=== PATIENT | female | born 1945 | race Caucasian/White ===

== ENCOUNTER → 2017-10-22 05:00 | Outpatient (REF) | payer MEDICARE, OTHER, SELFPAY ==
[2017-10-22 08:02] LABS: Hematocrit 39.8 % (37-47); Hemoglobin 13.6 g/dl (12.0-15.0); Mean Corp Hgb Conc 34.2 g/gl (32-36); Mean Corpuscular Hgb 31.7 pg (27.0-32.0); Mean Corpuscular Volume 92.8 fL (81-99); Mean Platelet Vol. 11.4 fl (6.2-12.0); Platelet Count 189 K/mm3 (150-450); RBC Distribution Width CV 12.7 % (11.6-14.6); RBC Distribution Width SD 42.3 fl (35.1-43.9); Red Blood Count 4.29 M/mm3 (4.2-5.4)
[2017-10-22 08:35] LABS: ALB/GLOB Ratio 1.3 RATIO (0.9-2.4); AST(SGOT) 15 U/L (15-37); Alanine Aminotransfer ALT/SGPT 18 U/L (12-78); Albumin, Serum 3.9 g/dL (3.4-5.0); Alkaline Phosphatase 105 U/L (45-117); Anion Gap 12 (5-15); BUN 15 mg/dL (7-18); BUN/Creat Ratio 22.8 RATIO (10-20); Calcium,Total 9.1 mg/dL (8.5-10.1); Chloride 104 mmol/L (98-107); Creatinine, Serum 0.66 mg/dL (0.55-1.02); EST Glomerular Filtration Rate 95 mL/min (>60); Est Glom Filt Rate - Afr Amer 114 mL/min (>60); Glucose 76 mg/dL (70-110); Potassium 4.8 mmol/L (3.5-5.1); Protein, Total 6.9 g/dL (6.4-8.2); Sodium Level 142 mmol/L (136-145)
[2017-10-22 08:36] LABS: Valproic Acid (Depakene) Level 33 ug/mL (50-100)
[2017-10-22 08:37] LABS: Scan Indicated on CBC? Y/N NO
== END ==
LOC: OLS.ACH 05:00
PROVIDERS: Visit Provider Family Medicine
DX: G40.909 Epilepsy, unspecified, not intractable, without status epilepticus (principal)
CPT/HCPCS: 36415; 80053; 80164; 80185; 85027

== ENCOUNTER → 2017-11-05 05:00 | Outpatient (REF) | payer MEDICARE, OTHER, SELFPAY ==
[2017-11-05 08:53] LABS: Valproic Acid (Depakene) Level 51 ug/mL (50-100)
== END ==
LOC: OLS.ACH 05:00
PROVIDERS: Visit Provider Family Medicine
DX: G40.909 Epilepsy, unspecified, not intractable, without status epilepticus (principal)
CPT/HCPCS: 36415; 80164

== ENCOUNTER → 2017-12-26 04:00 | Outpatient (REF) | payer MEDICARE, OTHER, SELFPAY ==
[2017-12-26 07:33] LABS: ALB/GLOB Ratio 1.1 RATIO (0.9-2.4); AST(SGOT) 16 U/L (15-37); Alanine Aminotransfer ALT/SGPT 18 U/L (13-56); Albumin, Serum 3.2 g/dL (3.2-5.0); Alkaline Phosphatase 123 U/L (45-117); Anion Gap 9 (5-15); BUN 18 mg/dL (7-18); BUN/Creat Ratio 30.2 RATIO (10-20); Calcium,Total 8.6 mg/dL (8.5-10.1); Chloride 107 mmol/L (98-107); EST Glomerular Filtration Rate 106 mL/min (>60); Est Glom Filt Rate - Afr Amer 128 mL/min (>60); Globulin 2.9 g/dL (2.2-4.2); Glucose 77 mg/dL (74-106); Potassium 4.1 mmol/L (3.5-5.1); Protein, Total 6.1 g/dL (6.4-8.2); Sodium Level 142 mmol/L (136-145)
[2017-12-26 07:45] LABS: Absolute Lymphocyte Count 1.71 X10^3/ul (0.83-4.51); Absolute Neutrophil Count 3.9 X10^3/uL (2.0-7.7); Basophil# 0.03 X10^3/uL; Basophil% 0.5 % (0-1); Eosinophil# 0.14 X10^3/uL; Eosinophils% 2.2 % (0-5); Hematocrit 37.9 % (37-47); Hemoglobin 12.7 g/dl (12.0-15.0); Lymphocyte # 1.71 X10^3/ul (4.0); Lymphocyte % 26.4 % (19-41); Mean Corp Hgb Conc 33.5 g/gl (32-36); Mean Corpuscular Hgb 31.1 pg (27.0-32.0); Mean Corpuscular Volume 92.9 fL (81-99); Mean Platelet Vol. 11.7 fl (6.2-12.0); Monocyte# 0.68 X10^3/uL; Monocyte% 10.5 % (0-10); Neutrophil % 60.2 % (47-70); Platelet Count 162 K/mm3 (150-450); RBC Distribution Width CV 13.2 % (11.6-14.6); RBC Distribution Width SD 44.7 fl (35.1-43.9); Red Blood Count 4.08 M/mm3 (4.2-5.4); White Blood Count 6.5 K/mm3 (4.4-11.0)
[2017-12-26 07:47] LABS: POSITIVE COUNT NO; POSITIVE DIFFERENTIAL NO; POSITIVE MORPHOLOGY NO
== END ==
LOC: OLS.ACH 04:00
PROVIDERS: Visit Provider Family Medicine
DX: R60.9 Edema, unspecified (principal)
CPT/HCPCS: 36415; 80053; 85025

== ENCOUNTER → 2018-02-25 05:00 | Outpatient (REF) | payer MEDICARE, OTHER, SELFPAY ==
[2018-02-25 09:03] LABS: Hematocrit 37.3 % (37-47); Hemoglobin 12.6 g/dl (12.0-15.0); Mean Corp Hgb Conc 33.8 g/gl (32-36); Mean Corpuscular Volume 94.7 fL (81-99); Mean Platelet Vol. 11.8 fl (6.2-12.0); Platelet Count 183 K/mm3 (150-450); RBC Distribution Width CV 13.2 % (11.6-14.6); RBC Distribution Width SD 44.4 fl (35.1-43.9); Red Blood Count 3.94 M/mm3 (4.2-5.4); White Blood Count 5.4 K/mm3 (4.4-11.0)
[2018-02-25 09:06] LABS: Scan Indicated on CBC? Y/N NO
[2018-02-25 09:20] LABS: ALB/GLOB Ratio 1.2 RATIO (0.9-2.4); AST(SGOT) 13 U/L (15-37); Alanine Aminotransfer ALT/SGPT 16 U/L (13-56); Albumin, Serum 3.4 g/dL (3.2-5.0); Alkaline Phosphatase 89 U/L (45-117); Anion Gap 9 (5-15); BUN 13 mg/dL (7-18); BUN/Creat Ratio 23.6 RATIO (10-20); Calcium,Total 8.6 mg/dL (8.5-10.1); Chloride 109 mmol/L (98-107); Creatinine, Serum 0.55 mg/dL (0.55-1.02); EST Glomerular Filtration Rate 115 mL/min (>60); Est Glom Filt Rate - Afr Amer 140 mL/min (>60); Globulin 2.8 g/dL (2.2-4.2); Glucose 71 mg/dL (74-106); Protein, Total 6.2 g/dL (6.4-8.2); Sodium Level 143 mmol/L (136-145)
[2018-02-25 09:30] LABS: Phenytoin (Dilantin) Level 10.1 mL (10.0-20.0); Valproic Acid (Depakene) Level 42 ug/mL (50-100)
== END ==
LOC: OLS.ACH 05:00
PROVIDERS: Visit Provider Family Medicine
DX: G40.909 Epilepsy, unspecified, not intractable, without status epilepticus (principal)
CPT/HCPCS: 36415; 80053; 80164; 80185; 85027

== ENCOUNTER → 2018-06-12 05:00 | Outpatient (REF) | payer MEDICARE, OTHER, SELFPAY ==
[2018-06-12 08:37] LABS: Phenytoin (Dilantin) Level 19.9 mL (10.0-20.0); Valproic Acid (Depakene) Level 31 ug/mL (50-100)
== END ==
LOC: OLS.ACH 05:00
PROVIDERS: Visit Provider Family Medicine
DX: G40.909 Epilepsy, unspecified, not intractable, without status epilepticus (principal)
CPT/HCPCS: 36415; 80164; 80185

== ENCOUNTER → 2018-06-24 05:00 | Outpatient (REF) | payer MEDICARE, OTHER, SELFPAY ==
[2018-06-24 08:56] LABS: AST(SGOT) 20 U/L (15-37); Alanine Aminotransfer ALT/SGPT 22 U/L (13-56); Albumin, Serum 3.4 g/dL (3.2-5.0); Alkaline Phosphatase 100 U/L (45-117); Anion Gap 9 (5-15); BUN 17 mg/dL (7-18); BUN/Creat Ratio 23.2 RATIO (10-20); Calcium,Total 9.1 mg/dL (8.5-10.1); Chloride 106 mmol/L (98-107); Creatinine, Serum 0.73 mg/dL (0.55-1.02); EST Glomerular Filtration Rate 83 mL/min (>60); Est Glom Filt Rate - Afr Amer 101 mL/min (>60); Globulin 3.4 g/dL (2.2-4.2); Glucose 79 mg/dL (74-106); Potassium 5.4 mmol/L (3.5-5.1); Protein, Total 6.8 g/dL (6.4-8.2); Sodium Level 144 mmol/L (136-145)
[2018-06-24 09:00] LABS: Hematocrit 41.3 % (37-47); Hemoglobin 13.9 g/dl (12.0-15.0); Mean Corp Hgb Conc 33.7 g/gl (32-36); Mean Corpuscular Hgb 32.2 pg (27.0-32.0); Mean Corpuscular Volume 95.6 fL (81-99); Mean Platelet Vol. 11.8 fl (6.2-12.0); Platelet Count 207 K/mm3 (150-450); RBC Distribution Width CV 12.8 % (11.6-14.6); RBC Distribution Width SD 43.6 fl (35.1-43.9); Red Blood Count 4.32 M/mm3 (4.2-5.4)
[2018-06-24 09:07] LABS: Scan Indicated on CBC? Y/N NO
[2018-06-24 09:12] LABS: Phenytoin (Dilantin) Level 21.9 mL (10.0-20.0); Valproic Acid (Depakene) Level 56 ug/mL (50-100)
== END ==
LOC: OLS.ACH 05:00
PROVIDERS: Visit Provider Family Medicine
DX: G40.909 Epilepsy, unspecified, not intractable, without status epilepticus (principal)
CPT/HCPCS: 36415; 80053; 80164; 80185; 85027

== ENCOUNTER → 2018-06-26 05:00 | Outpatient (REF) | payer MEDICARE, SELFPAY ==
[2018-06-26 09:04] LABS: Potassium 4.3 mmol/L (3.5-5.1)
== END ==
LOC: OLS.ACH 05:00
PROVIDERS: Visit Provider Family Medicine
DX: I10 Essential (primary) hypertension (principal)
CPT/HCPCS: 36415; 84132

== ENCOUNTER → 2018-07-01 04:00 | Outpatient (REF) | payer MEDICARE, OTHER, SELFPAY ==
[2018-07-01 08:36] LABS: Phenytoin (Dilantin) Level 29.2 mL (10.0-20.0); Valproic Acid (Depakene) Level 59 ug/mL (50-100)
== END ==
LOC: OLS.ACH 04:00
PROVIDERS: Visit Provider Family Medicine
DX: F41.1 Generalized anxiety disorder (principal); G40.909 Epilepsy, unspecified, not intractable, without status epilepticus
CPT/HCPCS: 36415; 80164; 80185

== ENCOUNTER → 2018-07-04 05:00 | Outpatient (REF) | payer MEDICARE, OTHER, SELFPAY ==
[2018-07-04 09:31] LABS: Phenytoin (Dilantin) Level 28.4 mL (10.0-20.0)
== END ==
LOC: OLS.ACH 05:00
PROVIDERS: Visit Provider Family Medicine
DX: G40.909 Epilepsy, unspecified, not intractable, without status epilepticus (principal)
CPT/HCPCS: 36415; 80185

== ENCOUNTER → 2018-07-12 17:55 | Outpatient (REF) | payer MEDICARE, OTHER, SELFPAY ==
[2018-07-12 18:35] LABS: Hematocrit 41.9 % (37-47); Hemoglobin 14.2 g/dl (12.0-15.0); Mean Corp Hgb Conc 33.9 g/gl (32-36); Mean Corpuscular Hgb 32.5 pg (27.0-32.0); Mean Corpuscular Volume 95.9 fL (81-99); Mean Platelet Vol. 11.6 fl (6.2-12.0); Platelet Count 210 K/mm3 (150-450); RBC Distribution Width CV 12.9 % (11.6-14.6); RBC Distribution Width SD 44.1 fl (35.1-43.9); Red Blood Count 4.37 M/mm3 (4.2-5.4); Scan Indicated on CBC? Y/N NO
[2018-07-12 18:48] LABS: AST(SGOT) 15 U/L (15-37); Alanine Aminotransfer ALT/SGPT 21 U/L (13-56); Albumin, Serum 3.4 g/dL (3.2-5.0); Alkaline Phosphatase 131 U/L (45-117); Anion Gap 4 (5-15); BUN 14 mg/dL (7-18); BUN/Creat Ratio 20.3 RATIO (10-20); Calcium,Total 8.6 mg/dL (8.5-10.1); Chloride 104 mmol/L (98-107); Creatinine, Serum 0.69 mg/dL (0.55-1.02); EST Glomerular Filtration Rate 89 mL/min (>60); Est Glom Filt Rate - Afr Amer 108 mL/min (>60); Globulin 3.5 g/dL (2.2-4.2); Glucose 111 mg/dL (74-106); Potassium 4.6 mmol/L (3.5-5.1); Protein, Total 6.9 g/dL (6.4-8.2); Sodium Level 138 mmol/L (136-145)
[2018-07-12 18:57] LABS: Phenytoin (Dilantin) Level 30.4 mL (10.0-20.0)
== END ==
LOC: OLS.ACH 17:55
PROVIDERS: Visit Provider Family Medicine
DX: G40.909 Epilepsy, unspecified, not intractable, without status epilepticus (principal); I10 Essential (primary) hypertension
CPT/HCPCS: 36415; 80053; 80185; 85027

== ENCOUNTER → 2018-07-22 05:00 | Outpatient (REF) | payer MEDICARE, OTHER, SELFPAY ==
[2018-07-22 08:33] LABS: Phenytoin (Dilantin) Level 22.9 mL (10.0-20.0)
== END ==
LOC: OLS.ACH 05:00
PROVIDERS: Visit Provider Family Medicine
DX: G40.909 Epilepsy, unspecified, not intractable, without status epilepticus (principal)
CPT/HCPCS: 36415; 80185

== ENCOUNTER → 2018-07-29 05:00 | Outpatient (REF) | payer MEDICARE, OTHER, SELFPAY ==
[2018-07-29 09:53] LABS: Phenytoin (Dilantin) Level 26.3 mL (10.0-20.0)
== END ==
LOC: OLS.ACH 05:00
PROVIDERS: Visit Provider Family Medicine
DX: G40.909 Epilepsy, unspecified, not intractable, without status epilepticus (principal)
CPT/HCPCS: 36415; 80185

== ENCOUNTER → 2018-08-02 04:00 | Outpatient (REF) | payer MEDICARE, OTHER, SELFPAY ==
[2018-08-02 09:45] LABS: Phenytoin (Dilantin) Level 18.6 mL (10.0-20.0)
== END ==
LOC: OLS.ACH 04:00
PROVIDERS: Visit Provider Family Medicine
DX: G40.909 Epilepsy, unspecified, not intractable, without status epilepticus (principal)
CPT/HCPCS: 36415; 80185

== ENCOUNTER → 2018-08-16 05:00 | Outpatient (REF) | payer MEDICARE, OTHER, SELFPAY ==
[2018-08-16 09:15] LABS: Phenytoin (Dilantin) Level 20.3 mL (10.0-20.0)
== END ==
LOC: OLS.ACH 05:00
PROVIDERS: Visit Provider Family Medicine
DX: G40.909 Epilepsy, unspecified, not intractable, without status epilepticus (principal)
CPT/HCPCS: 36415; 80185

== ENCOUNTER → 2018-08-20 04:00 | Outpatient (REF) | payer MEDICARE, OTHER, SELFPAY ==
[2018-08-20 09:14] LABS: Valproic Acid (Depakene) Level 54 ug/mL (50-100)
== END ==
LOC: OLS.ACH 04:00
PROVIDERS: Visit Provider Family Medicine
DX: G40.909 Epilepsy, unspecified, not intractable, without status epilepticus (principal)
CPT/HCPCS: 36415; 80164

== ENCOUNTER → 2018-08-28 04:00 | Outpatient (REF) | payer MEDICARE, OTHER, SELFPAY ==
[2018-08-28 08:12] LABS: Phenytoin (Dilantin) Level 12.8 mL (10.0-20.0)
== END ==
LOC: OLS.ACH 04:00
PROVIDERS: Visit Provider Family Medicine
DX: G40.909 Epilepsy, unspecified, not intractable, without status epilepticus (principal)
CPT/HCPCS: 36415; 80185

== ENCOUNTER → 2018-09-09 05:00 | Outpatient (REF) | payer MEDICARE, OTHER, SELFPAY | LOC: OLS.ACH 05:00 | PROVIDERS: Visit Provider Family Medicine | DX: G40.909 Epilepsy, unspecified, not intractable, without status epilepticus (principal) | CPT/HCPCS: 36415; 80185 ==

== ENCOUNTER → 2018-10-28 04:00 | Outpatient (REF) | payer MEDICARE, OTHER, SELFPAY ==
[2018-10-28 08:14] LABS: Hematocrit 39.5 % (37-47); Hemoglobin 13.2 g/dl (12.0-15.0); Mean Corp Hgb Conc 33.4 g/gl (32-36); Mean Corpuscular Hgb 32.2 pg (27.0-32.0); Mean Corpuscular Volume 96.3 fL (81-99); Mean Platelet Vol. 12.1 fl (6.2-12.0); Platelet Count 169 K/mm3 (150-450); RBC Distribution Width CV 13.3 % (11.6-14.6); White Blood Count 6.4 K/mm3 (4.4-11.0)
[2018-10-28 08:19] LABS: Scan Indicated on CBC? Y/N NO
[2018-10-28 08:30] LABS: AST(SGOT) 19 U/L (15-37); Alanine Aminotransfer ALT/SGPT 19 U/L (13-56); Albumin, Serum 2.9 g/dL (3.2-5.0); Alkaline Phosphatase 72 U/L (45-117); Anion Gap 11 (5-15); BUN 14 mg/dL (7-18); BUN/Creat Ratio 22.1 RATIO (10-20); Calcium,Total 8.7 mg/dL (8.5-10.1); Chloride 106 mmol/L (98-107); Creatinine, Serum 0.63 mg/dL (0.55-1.02); EST Glomerular Filtration Rate 98 mL/min (>60); Est Glom Filt Rate - Afr Amer 119 mL/min (>60); Globulin 2.8 g/dL (2.2-4.2); Glucose 68 mg/dL (74-106); Potassium 4.2 mmol/L (3.5-5.1); Protein, Total 5.7 g/dL (6.4-8.2); Sodium Level 144 mmol/L (136-145)
[2018-10-28 08:33] LABS: Valproic Acid (Depakene) Level 74 ug/mL (50-100)
== END ==
LOC: OLS.ACH 04:00
PROVIDERS: Visit Provider Family Medicine
DX: G40.909 Epilepsy, unspecified, not intractable, without status epilepticus (principal)
CPT/HCPCS: 36415; 80053; 80164; 80185; 85027

== ENCOUNTER → 2018-11-27 05:00 | Outpatient (REF) | payer MEDICARE, OTHER, SELFPAY ==
[2018-11-27 09:24] LABS: AST(SGOT) 19 U/L (15-37); Alanine Aminotransfer ALT/SGPT 24 U/L (13-56); Albumin, Serum 2.9 g/dL (3.2-5.0); Alkaline Phosphatase 85 U/L (45-117); Anion Gap 10 (5-15); BUN 13 mg/dL (7-18); BUN/Creat Ratio 19.3 RATIO (10-20); Calcium,Total 8.6 mg/dL (8.5-10.1); Chloride 105 mmol/L (98-107); Creatinine, Serum 0.67 mg/dL (0.55-1.02); EST Glomerular Filtration Rate 92 mL/min (>60); Est Glom Filt Rate - Afr Amer 111 mL/min (>60); Globulin 2.9 g/dL (2.2-4.2); Glucose 66 mg/dL (74-106); Potassium 4.4 mmol/L (3.5-5.1); Protein, Total 5.8 g/dL (6.4-8.2); Sodium Level 143 mmol/L (136-145); Thyroid Stim Hormone (TSH) 3.48 uIU/mL (0.358-3.74)
[2018-11-27 09:35] LABS: BNP,B-Type NATRIURETIC PEPTIDE 27.4 pg/mL (0-100)
== END ==
LOC: OLS.ACH 05:00
PROVIDERS: Visit Provider Family Medicine
DX: G40.909 Epilepsy, unspecified, not intractable, without status epilepticus (principal); I10 Essential (primary) hypertension; M62.81 Muscle weakness (generalized)
CPT/HCPCS: 36415; 80053; 83880; 84443

== ENCOUNTER → 2018-12-31 05:00 | Outpatient (REF) | payer MEDICARE, OTHER, SELFPAY ==
[2018-12-31 08:26] LABS: Bacteria 0 SEEN /hpf (None Seen); Mucous, Urine 0 SEEN /hpf (<or=2+); Red Blood Cells-Urine 0 SEEN /hpf (0-5); Squamous Epithelial Cells - UA 0 SEEN /hpf (5-10)
[2018-12-31 08:27] LABS: Hematocrit 39.7 % (37-47); Hemoglobin 13.1 g/dl (12.0-15.0); Mean Corpuscular Hgb 32.4 pg (27.0-32.0); Mean Corpuscular Volume 98.3 fL (81-99); Mean Platelet Vol. 11.9 fl (6.2-12.0); Platelet Count 169 K/mm3 (150-450); RBC Distribution Width CV 13.3 % (11.6-14.6); RBC Distribution Width SD 47.2 fl (35.1-43.9); Red Blood Count 4.04 M/mm3 (4.2-5.4); Scan Indicated on CBC? Y/N NO; White Blood Count 6.1 K/mm3 (4.4-11.0)
[2018-12-31 08:43] LABS: AST(SGOT) 18 U/L (15-37); Alanine Aminotransfer ALT/SGPT 20 U/L (13-56); Alkaline Phosphatase 70 U/L (45-117); Anion Gap 7 (5-15); BUN 13 mg/dL (7-18); BUN/Creat Ratio 19.3 RATIO (10-20); Calcium,Total 8.2 mg/dL (8.5-10.1); Chloride 103 mmol/L (98-107); Creatinine, Serum 0.67 mg/dL (0.55-1.02); EST Glomerular Filtration Rate 92 mL/min (>60); Est Glom Filt Rate - Afr Amer 111 mL/min (>60); Globulin 2.9 g/dL (2.2-4.2); Glucose 75 mg/dL (74-106); Potassium 3.5 mmol/L (3.5-5.1); Protein, Total 5.9 g/dL (6.4-8.2); Sodium Level 139 mmol/L (136-145)
[2018-12-31 08:43] LABS: Color, Urine Yellow (Yellow); Glucose, Dipstick Normal (Normal); Ketone-Dipstick 5 mg/dl (Negative); Leukocyte Esterase-Dipstick 500 /ul (Negative); Nitrite-Dipstick Positive (Negative); Occult Blood-Urine 50 /ul (Negative); Protein-Dipstick 100 mg/dl (Negative); Urine Bilirubin Dipstick Negative (Negative); Urine Clarity Cloudy (Clear); Urine Urobilinogen 1 mg/dl (Normal)
[2018-12-31 08:49] LABS: White Blood Cells >100 SEEN /hpf (0-5)
[2018-12-31 08:50] LABS: Phenytoin (Dilantin) Level 15.6 mL (10.0-20.0); Valproic Acid (Depakene) Level 77 ug/mL (50-100)
== END ==
LOC: OLS.ACH 05:00
PROVIDERS: Visit Provider Family Medicine
DX: I10 Essential (primary) hypertension (principal); R39.81 Functional urinary incontinence; G40.909 Epilepsy, unspecified, not intractable, without status epilepticus
CPT/HCPCS: 36415; 80053; 80164; 80185; 81001; 85027; 87086; 87088; 87186

== ENCOUNTER → 2019-01-06 04:00 | Outpatient (REF) | payer MEDICARE, OTHER, SELFPAY ==
[2019-01-06 07:40] LABS: Anion Gap 7 (5-15); BUN 14 mg/dL (7-18); BUN/Creat Ratio 19.9 RATIO (10-20); Calcium,Total 8.3 mg/dL (8.5-10.1); Chloride 102 mmol/L (98-107); EST Glomerular Filtration Rate 87 mL/min (>60); Est Glom Filt Rate - Afr Amer 105 mL/min (>60); Glucose 77 mg/dL (74-106); Potassium 2.9 mmol/L (3.5-5.1); Sodium Level 139 mmol/L (136-145)
== END ==
LOC: OLS.ACH 04:00
PROVIDERS: Visit Provider Family Medicine
DX: R60.9 Edema, unspecified (principal)
CPT/HCPCS: 36415; 80048

== ENCOUNTER → 2019-01-10 05:00 | Outpatient (REF) | payer MEDICARE, OTHER, SELFPAY ==
[2019-01-10 09:52] LABS: Potassium 3.5 mmol/L (3.5-5.1)
== END ==
LOC: OLS.ACH 05:00
PROVIDERS: Visit Provider Family Medicine
DX: E87.6 Hypokalemia (principal)
CPT/HCPCS: 36415; 84132

== ENCOUNTER → 2019-02-24 05:00 | Outpatient (REF) | payer MEDICARE, OTHER, SELFPAY ==
[2019-02-24 08:38] LABS: Hematocrit 38.6 % (37-47); Mean Corp Hgb Conc 33.7 g/gl (32-36); Mean Platelet Vol. 11.8 fl (6.2-12.0); Platelet Count 175 K/mm3 (150-450); RBC Distribution Width CV 12.9 % (11.6-14.6); RBC Distribution Width SD 45.5 fl (35.1-43.9); Red Blood Count 3.94 M/mm3 (4.2-5.4); White Blood Count 7.9 K/mm3 (4.4-11.0)
[2019-02-24 08:39] LABS: Scan Indicated on CBC? Y/N NO
[2019-02-24 09:17] LABS: AST(SGOT) 18 U/L (15-37); Alanine Aminotransfer ALT/SGPT 17 U/L (13-56); Alkaline Phosphatase 102 U/L (45-117); Anion Gap 4 (5-15); BUN 16 mg/dL (7-18); Calcium,Total 8.3 mg/dL (8.5-10.1); Chloride 106 mmol/L (98-107); Creatinine, Serum 0.67 mg/dL (0.55-1.02); EST Glomerular Filtration Rate 93 mL/min (>60); Est Glom Filt Rate - Afr Amer 112 mL/min (>60); Glucose 72 mg/dL (74-106); Potassium 4.3 mmol/L (3.5-5.1); Sodium Level 138 mmol/L (136-145)
[2019-02-24 09:36] LABS: Phenytoin (Dilantin) Level 11.6 mL (10.0-20.0); Valproic Acid (Depakene) Level 86 ug/mL (50-100)
== END ==
LOC: OLS.ACH 05:00
PROVIDERS: Visit Provider Family Medicine
DX: G40.909 Epilepsy, unspecified, not intractable, without status epilepticus (principal)
CPT/HCPCS: 36415; 80053; 80164; 80185; 85027

== ENCOUNTER → 2019-03-26 | Outpatient (REF) | payer MEDICARE, OTHER, SELFPAY ==
[2019-03-26 08:01] LABS: Phenytoin (Dilantin) Level 22.1 mL (10.0-20.0); Valproic Acid (Depakene) Level 72 ug/mL (50-100)
== END | disposition home or self-care (01) ==
LOC: OLS.ACH 05:00
PROVIDERS: Visit Provider Family Medicine
DX: G40.909 Epilepsy, unspecified, not intractable, without status epilepticus (principal)
CPT/HCPCS: 36415; 80164; 80185

== ENCOUNTER → 2019-04-02 | Outpatient (REF) | payer MEDICARE, OTHER, SELFPAY ==
[2019-04-02 07:46] LABS: Phenytoin (Dilantin) Level 16.3 mL (10.0-20.0)
== END | disposition home or self-care (01) ==
LOC: OLS.ACH 05:00
PROVIDERS: Visit Provider Family Medicine
DX: G40.909 Epilepsy, unspecified, not intractable, without status epilepticus (principal)
CPT/HCPCS: 36415; 80185

== ENCOUNTER → 2019-05-26 05:00 | Outpatient (REF) | payer MEDICARE, OTHER, SELFPAY ==
[2019-05-26 08:18] LABS: Hematocrit 39.1 % (37-47); Hemoglobin 13.2 g/dL (12.0-15.0); Mean Corp Hgb Conc 33.8 g/dL (32-36); Mean Corpuscular Hgb 32.1 pg (27.0-32.0); Mean Corpuscular Volume 95.1 fL (81-99); Mean Platelet Vol. 11.7 fl (6.2-12.0); Platelet Count 183 K/mm3 (150-450); RBC Distribution Width CV 12.3 % (11.6-14.6); RBC Distribution Width SD 43.1 fl (35.1-43.9); Red Blood Count 4.11 M/mm3 (4.2-5.4); White Blood Count 6.4 K/mm3 (4.4-11.0)
[2019-05-26 08:31] LABS: ALB/GLOB Ratio 0.9 RATIO (0.9-2.4); AST(SGOT) 13 U/L (15-37); Alanine Aminotransfer ALT/SGPT 16 U/L (13-56); Alkaline Phosphatase 92 U/L (45-117); Anion Gap 6 (5-15); BUN 11 mg/dL (7-18); BUN/Creat Ratio 16.6 RATIO (10-20); Calcium,Total 9.2 mg/dL (8.5-10.1); Chloride 104 mmol/L (98-107); Creatinine, Serum 0.66 mg/dL (0.55-1.02); EST Glomerular Filtration Rate 93 mL/min (>60); Est Glom Filt Rate - Afr Amer 113 mL/min (>60); Globulin 3.3 g/dL (2.2-4.2); Glucose 73 mg/dL (74-106); Potassium 5.1 mmol/L (3.5-5.1); Protein, Total 6.3 g/dL (6.4-8.2); Sodium Level 141 mmol/L (136-145)
[2019-05-26 08:44] LABS: Phenytoin (Dilantin) Level 9.2 mL (10.0-20.0); Valproic Acid (Depakene) Level 69 ug/mL (50-100)
== END ==
LOC: OLS.ACH 05:00
PROVIDERS: Visit Provider Family Medicine
DX: G40.909 Epilepsy, unspecified, not intractable, without status epilepticus (principal)
CPT/HCPCS: 36415; 80053; 80164; 80185; 85027

== ENCOUNTER → 2019-07-15 05:00 | Outpatient (REF) | payer MEDICARE, OTHER, SELFPAY ==
[2019-07-15 08:56] LABS: Valproic Acid (Depakene) Level 75 ug/mL (50-100)
[2019-07-18 11:03] LABS: Zarontin Level 113 ug/mL (40-100)
== END ==
LOC: OLS.ACH 05:00
PROVIDERS: Visit Provider Family Medicine
DX: G40.909 Epilepsy, unspecified, not intractable, without status epilepticus (principal)
CPT/HCPCS: 36415; 80164; 80168

== ENCOUNTER → 2019-08-19 16:30 | Outpatient (REF) | payer MEDICARE, OTHER, SELFPAY ==
[2019-08-20 08:44] LABS: Color, Urine Straw (Yellow); Glucose, Dipstick Normal (Normal); Ketone-Dipstick Negative (Negative); Leukocyte Esterase-Dipstick 100 /ul (Negative); Nitrite-Dipstick Negative (Negative); Occult Blood-Urine Negative /ul (Negative); Protein-Dipstick Negative (Negative); Specific Gravity, Urine 1.005 (1.002-1.030); Urine Bilirubin Dipstick Negative (Negative); Urine Clarity Clear (Clear); Urine Urobilinogen Normal (Normal)
== END ==
LOC: OLS.ACH 16:30
PROVIDERS: Visit Provider Family Medicine
DX: R39.81 Functional urinary incontinence (principal)
CPT/HCPCS: 81002; 87086; 87088; 87186

== ENCOUNTER → 2019-08-25 05:00 | Outpatient (REF) | payer MEDICARE, OTHER, SELFPAY ==
[2019-08-25 08:11] LABS: Hematocrit 35.1 % (37-47); Hemoglobin 11.9 g/dL (12.0-15.0); Mean Corp Hgb Conc 33.9 g/dL (32-36); Mean Corpuscular Hgb 32.1 pg (27.0-32.0); Mean Corpuscular Volume 94.6 fL (81-99); Mean Platelet Vol. 11.4 fl (6.2-12.0); Platelet Count 156 K/mm3 (150-450); RBC Distribution Width CV 12.9 % (11.6-14.6); RBC Distribution Width SD 44.9 fl (35.1-43.9); Red Blood Count 3.71 M/mm3 (4.2-5.4); White Blood Count 7.3 K/mm3 (4.4-11.0)
[2019-08-25 08:24] LABS: ALB/GLOB Ratio 0.9 RATIO (0.9-2.4); AST(SGOT) 13 U/L (15-37); Alanine Aminotransfer ALT/SGPT 12 U/L (13-56); Albumin, Serum 2.9 g/dL (3.2-5.0); Alkaline Phosphatase 98 U/L (45-117); Anion Gap 5 (5-15); BUN 13 mg/dL (7-18); BUN/Creat Ratio 19.7 RATIO (10-20); Calcium,Total 8.8 mg/dL (8.5-10.1); Chloride 103 mmol/L (98-107); Creatinine, Serum 0.66 mg/dL (0.55-1.02); EST Glomerular Filtration Rate 94 mL/min (>60); Est Glom Filt Rate - Afr Amer 113 mL/min (>60); Globulin 3.3 g/dL (2.2-4.2); Glucose 74 mg/dL (74-106); Potassium 4.6 mmol/L (3.5-5.1); Protein, Total 6.2 g/dL (6.4-8.2); Sodium Level 136 mmol/L (136-145)
[2019-08-25 08:37] LABS: Phenytoin (Dilantin) Level 7.2 mL (10.0-20.0); Valproic Acid (Depakene) Level 66 ug/mL (50-100)
== END ==
LOC: OLS.ACH 05:00
PROVIDERS: Visit Provider Family Medicine
DX: G40.909 Epilepsy, unspecified, not intractable, without status epilepticus (principal)
CPT/HCPCS: 36415; 80053; 80164; 80185; 85027

== ENCOUNTER → 2019-10-29 05:00 | Outpatient (REF) | payer MEDICARE, OTHER, SELFPAY | LOC: OLS.ACH 05:00 | PROVIDERS: Visit Provider Family Medicine | DX: R63.5 Abnormal weight gain (principal) | CPT/HCPCS: 36415; 84443 ==

== ENCOUNTER → 2019-11-24 05:00 | Outpatient (REF) | payer MEDICARE, OTHER, SELFPAY ==
[2019-11-24 07:51] LABS: Hematocrit 38.8 % (37-47); Hemoglobin 12.9 g/dL (12.0-15.0); Mean Corp Hgb Conc 33.2 g/dL (32-36); Mean Corpuscular Hgb 31.3 pg (27.0-32.0); Mean Corpuscular Volume 94.2 fL (81-99); Mean Platelet Vol. 11.2 fl (6.2-12.0); Platelet Count 157 K/mm3 (150-450); RBC Distribution Width CV 12.5 % (11.6-14.6); RBC Distribution Width SD 43.1 fl (35.1-43.9); Red Blood Count 4.12 M/mm3 (4.2-5.4); White Blood Count 5.9 K/mm3 (4.4-11.0)
[2019-11-24 08:10] LABS: Phenytoin (Dilantin) Level 7.5 mL (10.0-20.0); Valproic Acid (Depakene) Level 65 ug/mL (50-100)
[2019-11-24 08:21] LABS: ALB/GLOB Ratio 0.9 RATIO (0.9-2.4); AST(SGOT) 14 U/L (15-37); Alanine Aminotransfer ALT/SGPT 15 U/L (13-56); Alkaline Phosphatase 88 U/L (45-117); Anion Gap 4 (5-15); BUN 15 mg/dL (7-18); BUN/Creat Ratio 18.2 RATIO (10-20); Calcium,Total 8.9 mg/dL (8.5-10.1); Chloride 107 mmol/L (98-107); Creatinine, Serum 0.82 mg/dL (0.55-1.02); EST Glomerular Filtration Rate 72 mL/min (>60); Est Glom Filt Rate - Afr Amer 88 mL/min (>60); Globulin 3.3 g/dL (2.2-4.2); Glucose 72 mg/dL (74-106); Potassium 4.3 mmol/L (3.5-5.1); Protein, Total 6.3 g/dL (6.4-8.2); Sodium Level 140 mmol/L (136-145)
== END ==
LOC: OLS.ACH 05:00
PROVIDERS: Visit Provider Family Medicine
DX: G40.909 Epilepsy, unspecified, not intractable, without status epilepticus (principal)
CPT/HCPCS: 36415; 80053; 80164; 80185; 85027

== ENCOUNTER → 2019-12-11 05:00 | Outpatient (REF) | payer MEDICARE, OTHER, SELFPAY ==
[2019-12-11 09:58] LABS: Thyroid Stim Hormone (TSH) 4.69 uIU/mL (0.358-3.74)
== END ==
LOC: OLS.ACH 05:00
PROVIDERS: Visit Provider Family Medicine
DX: R63.5 Abnormal weight gain (principal)
CPT/HCPCS: 36415; 84443

== ENCOUNTER → 2020-02-23 04:30 | Outpatient (REF) | payer MEDICARE, OTHER, SELFPAY ==
[2020-02-23 08:21] LABS: Hematocrit 37.9 % (37-47); Hemoglobin 12.5 g/dL (12.0-15.0); Mean Corpuscular Hgb 31.8 pg (27.0-32.0); Mean Corpuscular Volume 96.4 fL (81-99); Mean Platelet Vol. 11.8 fl (6.2-12.0); Platelet Count 163 K/mm3 (150-450); RBC Distribution Width CV 12.8 % (11.6-14.6); RBC Distribution Width SD 45.9 fl (35.1-43.9); Red Blood Count 3.93 M/mm3 (4.2-5.4); White Blood Count 6.3 K/mm3 (4.4-11.0)
[2020-02-23 08:54] LABS: Phenytoin (Dilantin) Level 7.6 mL (10.0-20.0); Valproic Acid (Depakene) Level 68 ug/mL (50-100)
[2020-02-23 08:56] LABS: Anion Gap 7 (5-15); BUN 17 mg/dL (7-18); BUN/Creat Ratio 25.6 RATIO (10-20); Calcium,Total 8.7 mg/dL (8.5-10.1); Chloride 110 mmol/L (98-107); Creatinine, Serum 0.66 mg/dL (0.55-1.02); EST Glomerular Filtration Rate 93 mL/min (>60); Est Glom Filt Rate - Afr Amer 112 mL/min (>60); Glucose 72 mg/dL (74-106); Potassium 4.3 mmol/L (3.5-5.1); Sodium Level 143 mmol/L (136-145)
== END ==
LOC: OLS.ACH 04:30
PROVIDERS: Visit Provider Family Medicine
DX: G40.909 Epilepsy, unspecified, not intractable, without status epilepticus (principal)
CPT/HCPCS: 36415; 80048; 80164; 80185; 85027

== ENCOUNTER → 2020-03-09 04:00 | Outpatient (REF) | payer MEDICARE, OTHER, SELFPAY ==
[2020-03-09 09:09] LABS: T3 Total - Triiodothyronine 0.88 ng/mL (0.6-1.81)
[2020-03-09 09:19] LABS: Thyroid Stim Hormone (TSH) 2.48 uIU/mL (0.358-3.74)
[2020-03-09 09:21] LABS: Phenytoin (Dilantin) Level 9.8 mL (10.0-20.0)
== END ==
LOC: OLS.ACH 04:00
PROVIDERS: Referring Provider Family Medicine; Visit Provider Family Medicine
DX: E03.9 Hypothyroidism, unspecified (principal); G40.909 Epilepsy, unspecified, not intractable, without status epilepticus
CPT/HCPCS: 36415; 80185; 84436; 84443; 84480; G2023

== ENCOUNTER → 2020-05-24 04:00 | Outpatient (REF) | payer MEDICARE, OTHER, SELFPAY ==
[2020-05-24 08:07] LABS: Hematocrit 38.3 % (37-47); Hemoglobin 12.9 g/dL (12.0-15.0); Mean Corp Hgb Conc 33.7 g/dL (32-36); Mean Corpuscular Hgb 31.9 pg (27.0-32.0); Mean Corpuscular Volume 94.8 fL (81-99); Mean Platelet Vol. 11.7 fl (6.2-12.0); Platelet Count 174 K/mm3 (150-450); RBC Distribution Width CV 12.8 % (11.6-14.6); RBC Distribution Width SD 44.6 fl (35.1-43.9); Red Blood Count 4.04 M/mm3 (4.2-5.4); White Blood Count 6.2 K/mm3 (4.4-11.0)
[2020-05-24 09:01] LABS: ALB/GLOB Ratio 0.9 RATIO (0.9-2.4); AST(SGOT) 22 U/L (15-37); Alanine Aminotransfer ALT/SGPT 17 U/L (13-56); Alkaline Phosphatase 84 U/L (45-117); Anion Gap 6 (5-15); BUN 12 mg/dL (7-18); BUN/Creat Ratio 18.7 RATIO (10-20); Chloride 107 mmol/L (98-107); Creatinine, Serum 0.64 mg/dL (0.55-1.02); EST Glomerular Filtration Rate 96 mL/min (>60); Est Glom Filt Rate - Afr Amer 117 mL/min (>60); Globulin 3.3 g/dL (2.2-4.2); Glucose 69 mg/dL (74-106); Potassium 3.8 mmol/L (3.5-5.1); Protein, Total 6.3 g/dL (6.4-8.2); Sodium Level 141 mmol/L (136-145)
[2020-05-24 09:15] LABS: Phenytoin (Dilantin) Level 14.3 mL (10.0-20.0); Valproic Acid (Depakene) Level 70 ug/mL (50-100)
== END ==
LOC: OLS.ACH 04:00
PROVIDERS: Referring Provider Family Medicine; Visit Provider Family Medicine
DX: G40.909 Epilepsy, unspecified, not intractable, without status epilepticus (principal)
CPT/HCPCS: 36415; 80053; 80164; 80185; 85027

== ENCOUNTER → 2020-06-30 05:00 | Outpatient (REF) | payer MEDICARE, OTHER, SELFPAY | LOC: OLS.ACH 05:00 | PROVIDERS: Visit Provider Family Medicine | DX: Z11.59 Encounter for screening for other viral diseases (principal) | CPT/HCPCS: 87635; U0003 ==

== ENCOUNTER → 2020-07-07 05:00 | Outpatient (REF) | payer MEDICARE, OTHER, SELFPAY | LOC: OLS.ACH 05:00 | PROVIDERS: Visit Provider Family Medicine | DX: Z11.59 Encounter for screening for other viral diseases (principal) | CPT/HCPCS: 87635; U0003 ==

== ENCOUNTER → 2020-07-12 10:57 | Outpatient (REF) | payer MEDICARE, OTHER, SELFPAY | LOC: OLS.ACH 10:57 | PROVIDERS: Visit Provider Family Medicine | DX: Z11.59 Encounter for screening for other viral diseases (principal) | CPT/HCPCS: 87635; U0003 ==

== ENCOUNTER → 2020-07-16 12:49 | Outpatient (REF) | payer MEDICARE, OTHER, SELFPAY | LOC: OLS.ACH 12:49 | PROVIDERS: Referring Provider Family Medicine; Visit Provider Family Medicine | DX: Z03.818 Encounter for observation for suspected exposure to other biological agents ruled out (principal) | CPT/HCPCS: 87635; U0003 ==

== ENCOUNTER → 2020-07-19 08:00 | Outpatient (REF) | payer MEDICARE, OTHER, SELFPAY | LOC: OLS.ACH 08:00 | PROVIDERS: Referring Provider Family Medicine; Visit Provider Family Medicine | DX: Z03.818 Encounter for observation for suspected exposure to other biological agents ruled out (principal) | CPT/HCPCS: 87635; U0003 ==

== ENCOUNTER → 2020-07-23 09:26 | Outpatient (REF) | payer MEDICARE, OTHER, SELFPAY | LOC: OLS.ACH 09:26 | PROVIDERS: Referring Provider Family Medicine; Visit Provider Family Medicine | DX: Z03.818 Encounter for observation for suspected exposure to other biological agents ruled out (principal) | CPT/HCPCS: 87635; U0003 ==

== ENCOUNTER → 2020-07-26 13:59 | Outpatient (REF) | payer MEDICARE, OTHER, SELFPAY | LOC: OLS.ACH 13:59 | PROVIDERS: Referring Provider Family Medicine; Visit Provider Family Medicine | DX: Z03.818 Encounter for observation for suspected exposure to other biological agents ruled out (principal) | CPT/HCPCS: 87635; U0003 ==

== ENCOUNTER → 2020-07-30 09:59 | Outpatient (REF) | payer MEDICARE, OTHER, SELFPAY | LOC: OLS.ACH 09:59 | PROVIDERS: Referring Provider Family Medicine; Visit Provider Family Medicine | DX: Z03.818 Encounter for observation for suspected exposure to other biological agents ruled out (principal) | CPT/HCPCS: 87635; U0003 ==

== ENCOUNTER → 2020-08-03 10:43 | Outpatient (REF) | payer MEDICARE, OTHER, SELFPAY | LOC: OLS.ACH 10:43 | PROVIDERS: Referring Provider Family Medicine; Visit Provider Family Medicine | DX: Z03.818 Encounter for observation for suspected exposure to other biological agents ruled out (principal) | CPT/HCPCS: 87635; U0003 ==

== ENCOUNTER → 2020-08-06 11:24 | Outpatient (REF) | payer MEDICARE, OTHER, SELFPAY | LOC: OLS.ACH 11:24 | PROVIDERS: Referring Provider Family Medicine; Visit Provider Family Medicine | DX: Z03.818 Encounter for observation for suspected exposure to other biological agents ruled out (principal) | CPT/HCPCS: 87635; U0003 ==

== ENCOUNTER → 2020-08-10 | Outpatient (REF) | payer MEDICARE, OTHER, SELFPAY | LOC: OLS.ACH | PROVIDERS: Referring Provider Family Medicine; Visit Provider Family Medicine | DX: Z03.818 Encounter for observation for suspected exposure to other biological agents ruled out (principal) | CPT/HCPCS: 87635; U0003 ==

== ENCOUNTER → 2020-08-17 07:34 | Outpatient (REF) | payer MEDICARE, OTHER, SELFPAY | LOC: OLS.ACH 07:34 | PROVIDERS: Referring Provider Family Medicine; Visit Provider Family Medicine | DX: Z03.818 Encounter for observation for suspected exposure to other biological agents ruled out (principal) | CPT/HCPCS: 87635; U0003 ==

== ENCOUNTER → 2020-08-23 04:00 | Outpatient (REF) | payer MEDICARE, OTHER, SELFPAY ==
[2020-08-23 07:23] LABS: Hematocrit 40.3 % (37-47); Hemoglobin 13.3 g/dL (12.0-15.0); Mean Corpuscular Hgb 32.2 pg (27.0-32.0); Mean Corpuscular Volume 97.6 fL (81-99); Mean Platelet Vol. 11.4 fl (6.2-12.0); Platelet Count 190 K/mm3 (150-450); RBC Distribution Width CV 13.3 % (11.6-14.6); RBC Distribution Width SD 47.9 fl (35.1-43.9); Red Blood Count 4.13 M/mm3 (4.2-5.4); White Blood Count 6.6 K/mm3 (4.4-11.0)
[2020-08-23 07:35] LABS: Anion Gap 7 (5-15); BUN 13 mg/dL (7-18); BUN/Creat Ratio 19.3 RATIO (10-20); Chloride 104 mmol/L (98-107); Creatinine, Serum 0.67 mg/dL (0.55-1.02); EST Glomerular Filtration Rate 91 mL/min (>60); Est Glom Filt Rate - Afr Amer 110 mL/min (>60); Glucose 73 mg/dL (74-106); Potassium 3.7 mmol/L (3.5-5.1); Sodium Level 141 mmol/L (136-145)
[2020-08-23 07:51] LABS: Valproic Acid (Depakene) Level 90 ug/mL (50-100)
== END ==
LOC: OLS.ACH 04:00
PROVIDERS: Referring Provider Family Medicine; Visit Provider Family Medicine
DX: G40.909 Epilepsy, unspecified, not intractable, without status epilepticus (principal)
CPT/HCPCS: 36415; 80048; 80164; 80185; 85027

== ENCOUNTER → 2020-08-24 13:18 | Outpatient (REF) | payer MEDICARE, OTHER, SELFPAY | LOC: OLS.ACH 13:18 | PROVIDERS: Visit Provider Family Medicine | DX: Z03.818 Encounter for observation for suspected exposure to other biological agents ruled out (principal) | CPT/HCPCS: 87635; U0003 ==

== ENCOUNTER → 2020-08-30 04:00 | Outpatient (REF) | payer MEDICARE, OTHER, SELFPAY ==
[2020-08-30 09:42] LABS: Phenytoin (Dilantin) Level 18.1 mL (10.0-20.0); Valproic Acid (Depakene) Level 78 ug/mL (50-100)
== END ==
LOC: OLS.ACH 04:00
PROVIDERS: Referring Provider Family Medicine; Visit Provider Family Medicine
DX: Z00.00 Encounter for general adult medical examination without abnormal findings (principal)
CPT/HCPCS: 36415; 80164; 80185

== ENCOUNTER → 2020-08-31 11:09 | Outpatient (REF) | payer MEDICARE, OTHER, SELFPAY | LOC: OLS.ACH 11:09 | PROVIDERS: PCP Family Medicine; Referring Provider Family Medicine; Visit Provider Family Medicine | DX: Z03.818 Encounter for observation for suspected exposure to other biological agents ruled out (principal) | CPT/HCPCS: 87635; U0003 ==

== ENCOUNTER → 2020-09-14 10:05 | Outpatient (REF) | payer MEDICARE, OTHER, SELFPAY | LOC: OLS.ACH 10:05 | PROVIDERS: PCP Family Medicine; Referring Provider Family Medicine; Visit Provider Family Medicine | DX: Z03.818 Encounter for observation for suspected exposure to other biological agents ruled out (principal) | CPT/HCPCS: 87635; U0003 ==

== ENCOUNTER → 2020-09-28 07:34 | Outpatient (REF) | payer MEDICARE, OTHER, SELFPAY | LOC: OLS.ACH 07:34 | PROVIDERS: PCP Family Medicine; Referring Provider Family Medicine; Visit Provider Family Medicine | DX: Z03.818 Encounter for observation for suspected exposure to other biological agents ruled out (principal) | CPT/HCPCS: 87635; U0003 ==

== ENCOUNTER → 2020-10-12 07:28 | Outpatient (REF) | payer MEDICARE, OTHER, SELFPAY | LOC: OLS.ACH 07:28 | PROVIDERS: PCP Family Medicine; Referring Provider Family Medicine; Visit Provider Family Medicine | DX: Z03.818 Encounter for observation for suspected exposure to other biological agents ruled out (principal) | CPT/HCPCS: 87635; U0003 ==

== ENCOUNTER → 2020-10-14 14:55 | Outpatient (REF) | payer MEDICARE, OTHER, SELFPAY ==
[2020-10-14 16:01] LABS: Hematocrit 39.8 % (37-47); Hemoglobin 13.3 g/dL (12.0-15.0); Mean Corp Hgb Conc 33.4 g/dL (32-36); Mean Corpuscular Hgb 32.4 pg (27.0-32.0); Mean Corpuscular Volume 96.8 fL (81-99); Mean Platelet Vol. 10.7 fl (6.2-12.0); Platelet Count 203 K/mm3 (150-450); RBC Distribution Width CV 13.3 % (11.6-14.6); RBC Distribution Width SD 47.4 fl (35.1-43.9); Red Blood Count 4.11 M/mm3 (4.2-5.4); White Blood Count 8.2 K/mm3 (4.4-11.0)
[2020-10-14 16:44] LABS: Anion Gap 5 (5-15); BUN 13 mg/dL (7-18); Chloride 106 mmol/L (98-107); Creatinine, Serum 0.72 mg/dL (0.55-1.02); EST Glomerular Filtration Rate 84 mL/min (>60); Est Glom Filt Rate - Afr Amer 101 mL/min (>60); Glucose 105 mg/dL (74-106); Potassium 4.1 mmol/L (3.5-5.1); Sodium Level 139 mmol/L (136-145)
== END ==
LOC: OLS.ACH 14:55
PROVIDERS: PCP Family Medicine; Referring Provider Family Medicine; Visit Provider Family Medicine
DX: I10 Essential (primary) hypertension (principal); G40.909 Epilepsy, unspecified, not intractable, without status epilepticus; F03.90 Unspecified dementia, unspecified severity, without behavioral disturbance, psychotic disturbance, mood disturbance, and anxiety
CPT/HCPCS: 36415; 80048; 85027

== ENCOUNTER → 2020-10-15 11:05 | Outpatient (REF) | payer MEDICARE, OTHER, SELFPAY ==
[2020-10-15 11:38] LABS: Color, Urine Yellow (Yellow); Glucose, Dipstick Normal (Normal); Ketone-Dipstick Negative (Negative); Leukocyte Esterase-Dipstick 500 /ul (Negative); Nitrite-Dipstick Positive (Negative); Occult Blood-Urine 25 /ul (Negative); Protein-Dipstick Negative (Negative); Urine Bilirubin Dipstick Negative (Negative); Urine Clarity Cloudy (Clear); Urine Urobilinogen Normal (Normal); Urine pH 6.5 (5.0 - 8.0)
== END ==
LOC: OLS.ACH 11:05
PROVIDERS: PCP Family Medicine; Referring Provider Family Medicine; Visit Provider Family Medicine
DX: R53.83 Other fatigue (principal); R50.9 Fever, unspecified
CPT/HCPCS: 81002; 87086; 87088; 87186

== ENCOUNTER → 2020-10-26 18:01 | Outpatient (REF) | payer MEDICARE, OTHER, SELFPAY | LOC: OLS.ACH 18:01 | PROVIDERS: PCP Family Medicine; Referring Provider Family Medicine; Visit Provider Family Medicine | DX: Z03.818 Encounter for observation for suspected exposure to other biological agents ruled out (principal) | CPT/HCPCS: 87635; U0005; U0003 ==

== ENCOUNTER → 2020-11-01 04:00 | Outpatient (REF) | payer MEDICARE, OTHER, SELFPAY ==
[2020-11-01 07:55] LABS: Absolute Lymphocyte Count 1.77 X10^3/uL (0.83-4.51); Absolute Neutrophil Count 1.7 X10^3/uL (2.0-7.7); Basophil# 0.05 X10^3/uL; Basophil% 1.1 % (0-1); Eosinophil# 0.02 X10^3/uL; Eosinophils% 0.4 % (0-5); Hematocrit 38.1 % (37-47); Hemoglobin 12.4 g/dL (12.0-15.0); Lymphocyte # 1.77 X10^3/ul (4.0); Lymphocyte % 39.5 % (19-41); Mean Corp Hgb Conc 32.5 g/dL (32-36); Mean Corpuscular Hgb 31.9 pg (27.0-32.0); Mean Corpuscular Volume 97.9 fL (81-99); Mean Platelet Vol. 11.2 fl (6.2-12.0); Monocyte# 0.85 X10^3/uL; NRBC Flagged by Analyzer 0 % (0-5); Neutrophil # 1.74 X10^3/uL (2.7-7.7); Neutrophil % 38.9 % (47-70); Platelet Count 180 K/mm3 (150-450); RBC Distribution Width CV 13.7 % (11.6-14.6); RBC Distribution Width SD 49.3 fl (35.1-43.9); Red Blood Count 3.89 M/mm3 (4.2-5.4); White Blood Count 4.5 K/mm3 (4.4-11.0)
[2020-11-01 08:23] LABS: Phenytoin (Dilantin) Level 10.2 mL (10.0-20.0); Valproic Acid (Depakene) Level 89 ug/mL (50-100)
[2020-11-01 08:27] LABS: ALB/GLOB Ratio 0.8 RATIO (0.9-2.4); AST(SGOT) 31 U/L (15-37); Alanine Aminotransfer ALT/SGPT 20 U/L (13-56); Albumin, Serum 2.6 g/dL (3.2-5.0); Alkaline Phosphatase 75 U/L (45-117); Anion Gap 7 (5-15); BUN 11 mg/dL (7-18); BUN/Creat Ratio 20.2 RATIO (10-20); Calcium,Total 8.3 mg/dL (8.5-10.1); Chloride 103 mmol/L (98-107); Creatinine, Serum 0.54 mg/dL (0.55-1.02); EST Glomerular Filtration Rate 116 mL/min (>60); Est Glom Filt Rate - Afr Amer 141 mL/min (>60); Globulin 3.2 g/dL (2.2-4.2); Glucose 72 mg/dL (74-106); Potassium 3.4 mmol/L (3.5-5.1); Protein, Total 5.8 g/dL (6.4-8.2); Sodium Level 139 mmol/L (136-145)
== END ==
LOC: OLS.ACH 04:00
PROVIDERS: PCP Family Medicine; Visit Provider Family Medicine
DX: I10 Essential (primary) hypertension (principal); G40.909 Epilepsy, unspecified, not intractable, without status epilepticus
CPT/HCPCS: 36415; 80053; 80164; 80185; 85025

== ENCOUNTER → 2020-11-22 04:00 | Outpatient (REF) | payer MEDICARE, OTHER, SELFPAY ==
[2020-11-22 07:54] LABS: Anion Gap 4 (5-15); BUN 11 mg/dL (7-18); Calcium,Total 8.7 mg/dL (8.5-10.1); Chloride 103 mmol/L (98-107); Creatinine, Serum 0.58 mg/dL (0.55-1.02); EST Glomerular Filtration Rate 108 mL/min (>60); Est Glom Filt Rate - Afr Amer 131 mL/min (>60); Glucose 68 mg/dL (74-106); Potassium 4.4 mmol/L (3.5-5.1); Sodium Level 136 mmol/L (136-145)
== END ==
LOC: OLS.ACH 04:00
PROVIDERS: PCP Family Medicine; Visit Provider Family Medicine
DX: E87.6 Hypokalemia (principal)
CPT/HCPCS: 36415; 80048

== ENCOUNTER → 2021-01-24 04:00 | Outpatient (REF) | payer MEDICARE, OTHER, SELFPAY ==
[2021-01-24 06:55] LABS: Absolute Lymphocyte Count 2.36 X10^3/uL (0.83-4.51); Absolute Neutrophil Count 3.4 X10^3/uL (2.0-7.7); Basophil# 0.07 X10^3/uL; Basophil% 1.1 % (0-1); Eosinophil# 0.12 X10^3/uL; Eosinophils% 1.8 % (0-5); Hematocrit 37.6 % (37-47); Hemoglobin 12.4 g/dL (12.0-15.0); Lymphocyte # 2.36 X10^3/ul (4.0); Lymphocyte % 35.6 % (19-41); Mean Corpuscular Hgb 32.8 pg (27.0-32.0); Mean Corpuscular Volume 99.5 fL (81-99); Mean Platelet Vol. 11.8 fl (6.2-12.0); Monocyte# 0.69 X10^3/uL; Monocyte% 10.4 % (0-10); NRBC Flagged by Analyzer 0 % (0-5); Neutrophil # 3.35 X10^3/uL (2.7-7.7); Neutrophil % 50.6 % (47-70); Platelet Count 189 K/mm3 (150-450); RBC Distribution Width CV 12.3 % (11.6-14.6); RBC Distribution Width SD 45.1 fl (35.1-43.9); Red Blood Count 3.78 M/mm3 (4.2-5.4); White Blood Count 6.6 K/mm3 (4.4-11.0)
[2021-01-24 07:32] LABS: ALB/GLOB Ratio 0.8 RATIO (0.9-2.4); AST(SGOT) 16 U/L (15-37); Alanine Aminotransfer ALT/SGPT 13 U/L (13-56); Albumin, Serum 2.8 g/dL (3.2-5.0); Alkaline Phosphatase 95 U/L (45-117); Anion Gap 4 (5-15); BUN 14 mg/dL (7-18); BUN/Creat Ratio 26.1 RATIO (10-20); Calcium,Total 9.1 mg/dL (8.5-10.1); Chloride 105 mmol/L (98-107); Creatinine, Serum 0.54 mg/dL (0.55-1.02); EST Glomerular Filtration Rate 119 mL/min (>60); Est Glom Filt Rate - Afr Amer 143 mL/min (>60); Globulin 3.5 g/dL (2.2-4.2); Glucose 69 mg/dL (74-106); Phenytoin (Dilantin) Level 7.8 mL (10.0-20.0); Potassium 4.5 mmol/L (3.5-5.1); Protein, Total 6.3 g/dL (6.4-8.2); Sodium Level 138 mmol/L (136-145); Valproic Acid (Depakene) Level 75 ug/mL (50-100)
== END ==
LOC: OLS.ACH 04:00
PROVIDERS: PCP Family Medicine; Visit Provider Family Medicine
DX: G40.909 Epilepsy, unspecified, not intractable, without status epilepticus (principal); I10 Essential (primary) hypertension
CPT/HCPCS: 36415; 80053; 80164; 80185; 85025

== ENCOUNTER → 2021-04-19 04:00 | Outpatient (REF) | payer MEDICARE, OTHER, SELFPAY ==
[2021-04-19 08:15] LABS: Absolute Lymphocyte Count 2.26 X10^3/uL (0.83-4.51); Absolute Neutrophil Count 1.9 X10^3/uL (2.0-7.7); Basophil# 0.04 X10^3/uL; Basophil% 0.8 % (0-1); Eosinophil# 0.12 X10^3/uL; Eosinophils% 2.5 % (0-5); Hematocrit 37.7 % (37-47); Hemoglobin 12.6 g/dL (12.0-15.0); Lymphocyte # 2.26 X10^3/ul (0.83-4.51); Lymphocyte % 46.8 % (19-41); Mean Corp Hgb Conc 33.4 g/dL (32-36); Mean Corpuscular Hgb 31.8 pg (27.0-32.0); Mean Corpuscular Volume 95.2 fL (81-99); Mean Platelet Vol. 11.5 fl (6.2-12.0); Monocyte# 0.47 X10^3/uL; Monocyte% 9.7 % (0-10); NRBC Flagged by Analyzer 0 % (0-5); Neutrophil # 1.93 X10^3/uL (2.7-7.7); Platelet Count 171 K/mm3 (150-450); RBC Distribution Width CV 12.7 % (11.6-14.6); RBC Distribution Width SD 44.3 fl (35.1-43.9); Red Blood Count 3.96 M/mm3 (4.2-5.4); White Blood Count 4.8 K/mm3 (4.4-11.0)
[2021-04-19 08:25] LABS: Phenytoin (Dilantin) Level 8.1 mL (10.0-20.0); Valproic Acid (Depakene) Level 82 ug/mL (50-100)
[2021-04-19 08:29] LABS: ALB/GLOB Ratio 0.9 RATIO (0.9-2.4); AST(SGOT) 17 U/L (15-37); Alanine Aminotransfer ALT/SGPT 18 U/L (13-56); Albumin, Serum 3.2 g/dL (3.2-5.0); Alkaline Phosphatase 83 U/L (45-117); Anion Gap 6 (5-15); BUN 16 mg/dL (7-18); BUN/Creat Ratio 21.8 RATIO (10-20); Calcium,Total 8.8 mg/dL (8.5-10.1); Chloride 105 mmol/L (98-107); Creatinine, Serum 0.74 mg/dL (0.55-1.02); EST Glomerular Filtration Rate 82 mL/min (>60); Est Glom Filt Rate - Afr Amer 100 mL/min (>60); Globulin 3.5 g/dL (2.2-4.2); Glucose 74 mg/dL (74-106); Potassium 4.2 mmol/L (3.5-5.1); Protein, Total 6.7 g/dL (6.4-8.2); Sodium Level 139 mmol/L (136-145)
== END ==
LOC: OLS.ACH 04:00
PROVIDERS: PCP Family Medicine; Referring Provider Family Medicine; Visit Provider Family Medicine
DX: G40.909 Epilepsy, unspecified, not intractable, without status epilepticus (principal); I10 Essential (primary) hypertension; K27.9 Peptic ulcer, site unspecified, unspecified as acute or chronic, without hemorrhage or perforation
CPT/HCPCS: 36415; 80053; 80164; 80185; 85025

== ENCOUNTER → 2021-07-11 05:00 | Outpatient (REF) | payer MEDICARE, OTHER, SELFPAY ==
[2021-07-11 08:14] LABS: Absolute Lymphocyte Count 2.69 X10^3/uL (0.83-4.51); Absolute Neutrophil Count 2.5 X10^3/uL (2.0-7.7); Basophil# 0.06 X10^3/uL; Basophil% 0.9 % (0-1); Eosinophil# 0.18 X10^3/uL; Eosinophils% 2.8 % (0-5); Hematocrit 36.5 % (37-47); Hemoglobin 12.4 g/dL (12.0-15.0); Lymphocyte # 2.69 X10^3/ul (0.83-4.51); Lymphocyte % 42.4 % (19-41); Mean Corpuscular Hgb 32.7 pg (27.0-32.0); Mean Corpuscular Volume 96.3 fL (81-99); Monocyte# 0.87 X10^3/uL; Monocyte% 13.7 % (0-10); NRBC Flagged by Analyzer 0 % (0-5); Neutrophil % 39.6 % (47-70); Platelet Count 147 K/mm3 (150-450); RBC Distribution Width SD 46.3 fl (35.1-43.9); Red Blood Count 3.79 M/mm3 (4.2-5.4); White Blood Count 6.3 K/mm3 (4.4-11.0)
[2021-07-11 08:42] LABS: Phenytoin (Dilantin) Level 7.8 mL (10.0-20.0); Valproic Acid (Depakene) Level 93 ug/mL (50-100)
[2021-07-11 08:52] LABS: ALB/GLOB Ratio 0.8 RATIO (0.9-2.4); AST(SGOT) 15 U/L (15-37); Alanine Aminotransfer ALT/SGPT 21 U/L (13-56); Albumin, Serum 2.8 g/dL (3.2-5.0); Alkaline Phosphatase 91 U/L (45-117); Anion Gap 6 (5-15); BUN 20 mg/dL (7-18); BUN/Creat Ratio 30.1 RATIO (10-20); Calcium,Total 8.4 mg/dL (8.5-10.1); Chloride 106 mmol/L (98-107); Creatinine, Serum 0.66 mg/dL (0.55-1.02); EST Glomerular Filtration Rate 92 mL/min (>60); Est Glom Filt Rate - Afr Amer 112 mL/min (>60); Globulin 3.4 g/dL (2.2-4.2); Glucose 85 mg/dL (74-106); Potassium 4.4 mmol/L (3.5-5.1); Protein, Total 6.2 g/dL (6.4-8.2); Sodium Level 139 mmol/L (136-145)
== END ==
LOC: OLS.ACH 05:00
PROVIDERS: PCP Family Medicine; Visit Provider Family Medicine
DX: G40.909 Epilepsy, unspecified, not intractable, without status epilepticus (principal); I10 Essential (primary) hypertension
CPT/HCPCS: 36415; 80053; 80164; 80185; 85025

== ENCOUNTER → 2021-07-28 05:00 | Outpatient (REF) | payer MEDICARE, OTHER, SELFPAY ==
[2021-07-28 08:50] LABS: Hemoglobin 12.6 g/dL (12.0-15.0); Mean Corp Hgb Conc 34.1 g/dL (32-36); Mean Corpuscular Hgb 32.6 pg (27.0-32.0); Mean Corpuscular Volume 95.6 fL (81-99); Mean Platelet Vol. 11.7 fl (6.2-12.0); Platelet Count 158 K/mm3 (150-450); RBC Distribution Width CV 12.7 % (11.6-14.6); RBC Distribution Width SD 44.5 fl (35.1-43.9); Red Blood Count 3.87 M/mm3 (4.2-5.4); White Blood Count 5.2 K/mm3 (4.4-11.0)
[2021-07-28 09:01] LABS: Anion Gap 4 (5-15); BUN 14 mg/dL (7-18); BUN/Creat Ratio 19.7 RATIO (10-20); Chloride 106 mmol/L (98-107); Creatinine, Serum 0.71 mg/dL (0.55-1.02); EST Glomerular Filtration Rate 85 mL/min (>60); Est Glom Filt Rate - Afr Amer 103 mL/min (>60); Glucose 76 mg/dL (74-106); Potassium 4.6 mmol/L (3.5-5.1); Sodium Level 138 mmol/L (136-145)
== END ==
LOC: OLS.ACH 05:00
PROVIDERS: PCP Family Medicine; Visit Provider Family Medicine
DX: G40.909 Epilepsy, unspecified, not intractable, without status epilepticus (principal); R60.1 Generalized edema; R06.02 Shortness of breath
CPT/HCPCS: 36415; 80048; 83880; 85027

== ENCOUNTER → 2021-08-02 05:00 | Outpatient (REF) | payer MEDICARE, OTHER, SELFPAY ==
[2021-08-02 09:52] LABS: Phenytoin (Dilantin) Level 10.6 mL (10.0-20.0)
== END ==
LOC: OLS.ACH 05:00
PROVIDERS: PCP Family Medicine; Visit Provider Family Medicine
DX: G40.909 Epilepsy, unspecified, not intractable, without status epilepticus (principal)
CPT/HCPCS: 36415; 80185

== ENCOUNTER → 2021-08-08 04:00 | Outpatient (REF) | payer MEDICARE, OTHER, SELFPAY ==
[2021-08-08 08:54] LABS: Anion Gap 8 (5-15); BUN 17 mg/dL (7-18); BUN/Creat Ratio 21.7 RATIO (10-20); Calcium,Total 8.7 mg/dL (8.5-10.1); Chloride 105 mmol/L (98-107); Creatinine, Serum 0.78 mg/dL (0.55-1.02); EST Glomerular Filtration Rate 77 mL/min (>60); Est Glom Filt Rate - Afr Amer 93 mL/min (>60); Glucose 72 mg/dL (74-106); Sodium Level 140 mmol/L (136-145)
== END ==
LOC: OLS.ACH 04:00
PROVIDERS: PCP Family Medicine; Visit Provider Family Medicine
DX: I10 Essential (primary) hypertension (principal)
CPT/HCPCS: 36415; 80048

== ENCOUNTER → 2021-09-01 05:00 | Outpatient (REF) | payer MEDICARE, OTHER, SELFPAY ==
[2021-09-01 09:20] LABS: Hematocrit 36.2 % (37-47); Hemoglobin 12.4 g/dL (12.0-15.0); Mean Corp Hgb Conc 34.3 g/dL (32-36); Mean Corpuscular Hgb 33.2 pg (27.0-32.0); Mean Corpuscular Volume 96.8 fL (81-99); Mean Platelet Vol. 12.3 fl (6.2-12.0); Platelet Count 127 K/mm3 (150-450); RBC Distribution Width CV 12.7 % (11.6-14.6); RBC Distribution Width SD 45.1 fl (35.1-43.9); Red Blood Count 3.74 M/mm3 (4.2-5.4); White Blood Count 5.9 K/mm3 (4.4-11.0)
[2021-09-01 09:44] LABS: ALB/GLOB Ratio 0.8 RATIO (0.9-2.4); AST(SGOT) 22 U/L (15-37); Alanine Aminotransfer ALT/SGPT 23 U/L (13-56); Albumin, Serum 2.8 g/dL (3.2-5.0); Alkaline Phosphatase 83 U/L (45-117); Anion Gap 7 (5-15); BUN 17 mg/dL (7-18); Calcium,Total 8.6 mg/dL (8.5-10.1); Chloride 107 mmol/L (98-107); Creatinine, Serum 0.77 mg/dL (0.55-1.02); EST Glomerular Filtration Rate 78 mL/min (>60); Est Glom Filt Rate - Afr Amer 94 mL/min (>60); Globulin 3.4 g/dL (2.2-4.2); Glucose 74 mg/dL (74-106); Potassium 4.1 mmol/L (3.5-5.1); Protein, Total 6.2 g/dL (6.4-8.2); Sodium Level 142 mmol/L (136-145)
[2021-09-01 10:08] LABS: Phenytoin (Dilantin) Level 13.8 mL (10.0-20.0)
== END ==
LOC: OLS.ACH 05:00
PROVIDERS: PCP Family Medicine; Visit Provider Family Medicine
DX: I11.0 Hypertensive heart disease with heart failure (principal); I50.9 Heart failure, unspecified
CPT/HCPCS: 36415; 80053; 80185; 85027

== ENCOUNTER → 2021-10-03 04:00 | Outpatient (REF) | payer MEDICARE, OTHER, SELFPAY ==
[2021-10-03 06:22] LABS: Absolute Lymphocyte Count 3.18 X10^3/uL (0.83-4.51); Absolute Neutrophil Count 2.4 X10^3/uL (2.0-7.7); Basophil# 0.04 X10^3/uL; Basophil% 0.6 % (0-1); Eosinophil# 0.11 X10^3/uL; Eosinophils% 1.7 % (0-5); Hemoglobin 12.5 g/dL (12.0-15.0); Lymphocyte # 3.18 X10^3/ul (0.83-4.51); Lymphocyte % 49.5 % (19-41); Mean Corp Hgb Conc 34.7 g/dL (32-36); Mean Corpuscular Hgb 33.7 pg (27.0-32.0); Monocyte# 0.71 X10^3/uL; NRBC Flagged by Analyzer 0 % (0-5); Neutrophil # 2.37 X10^3/uL (2.7-7.7); Neutrophil % 36.9 % (47-70); Platelet Count 160 K/mm3 (150-450); RBC Distribution Width CV 12.7 % (11.6-14.6); Red Blood Count 3.71 M/mm3 (4.2-5.4); White Blood Count 6.4 K/mm3 (4.4-11.0)
[2021-10-03 06:35] LABS: Phenytoin (Dilantin) Level 14.5 mL (10.0-20.0); Valproic Acid (Depakene) Level 90 ug/mL (50-100)
[2021-10-03 06:54] LABS: ALB/GLOB Ratio 0.9 RATIO (0.9-2.4); AST(SGOT) 19 U/L (15-37); Alanine Aminotransfer ALT/SGPT 21 U/L (13-56); Alkaline Phosphatase 80 U/L (45-117); Anion Gap 6 (5-15); BUN 15 mg/dL (7-18); BUN/Creat Ratio 19.7 RATIO (10-20); Calcium,Total 8.7 mg/dL (8.5-10.1); Chloride 106 mmol/L (98-107); Creatinine, Serum 0.76 mg/dL (0.55-1.02); EST Glomerular Filtration Rate 79 mL/min (>60); Est Glom Filt Rate - Afr Amer 95 mL/min (>60); Globulin 3.4 g/dL (2.2-4.2); Glucose 73 mg/dL (74-106); Potassium 4.1 mmol/L (3.5-5.1); Protein, Total 6.4 g/dL (6.4-8.2); Sodium Level 140 mmol/L (136-145)
== END ==
LOC: OLS.ACH 04:00
PROVIDERS: PCP Family Medicine; Referring Provider Family Medicine; Visit Provider Family Medicine
DX: G40.909 Epilepsy, unspecified, not intractable, without status epilepticus (principal); I11.0 Hypertensive heart disease with heart failure; I50.9 Heart failure, unspecified
CPT/HCPCS: 36415; 80053; 80164; 80185; 85025

== ENCOUNTER 2021-10-26 05:00 | Outpatient (REF) | payer MEDICARE, OTHER, SELFPAY ==
[2021-10-26 08:18] LABS: Valproic Acid (Depakene) Level 76 ug/mL (50-100)
== END 2021-10-26 23:59 | disposition home or self-care (01) ==
LOC: OLS.ACH 05:00
PROVIDERS: PCP Family Medicine; Visit Provider Family Medicine
DX: G40.909 Epilepsy, unspecified, not intractable, without status epilepticus (principal)
CPT/HCPCS: 36415; 80164; 80185

== ENCOUNTER 2021-11-23 04:00 | Outpatient (REF) | payer MEDICARE, OTHER, SELFPAY ==
[2021-11-23 08:00] LABS: Thyroid Stim Hormone (TSH) 2.89 uIU/mL (0.358-3.74)
== END 2021-11-23 23:59 | disposition home or self-care (01) ==
LOC: OLS.ACH 04:00
PROVIDERS: PCP Family Medicine; Referring Provider Family Medicine; Visit Provider Family Medicine
DX: E03.9 Hypothyroidism, unspecified (principal)
CPT/HCPCS: 36415; 84443

== ENCOUNTER → 2021-12-21 | Outpatient (REF) | payer MEDICARE, OTHER, SELFPAY ==
[2021-12-21 09:17] LABS: Absolute Lymphocyte Count 2.13 X10^3/uL (0.83-4.51); Absolute Neutrophil Count 2.7 X10^3/uL (2.0-7.7); Basophil# 0.04 X10^3/uL; Basophil% 0.7 % (0-1); Eosinophil# 0.06 X10^3/uL; Eosinophils% 1.1 % (0-5); Hemoglobin 11.7 g/dL (12.0-15.0); Lymphocyte # 2.13 X10^3/ul (0.83-4.51); Lymphocyte % 37.9 % (19-41); Mean Corp Hgb Conc 33.4 g/dL (32-36); Mean Corpuscular Hgb 32.6 pg (27.0-32.0); Mean Corpuscular Volume 97.5 fL (81-99); Mean Platelet Vol. 11.5 fl (6.2-12.0); Monocyte# 0.66 X10^3/uL; Monocyte% 11.7 % (0-10); NRBC Flagged by Analyzer 0 % (0-5); Neutrophil # 2.71 X10^3/uL (2.7-7.7); Neutrophil % 48.2 % (47-70); Platelet Count 169 K/mm3 (150-450); RBC Distribution Width SD 43.6 fl (35.1-43.9); Red Blood Count 3.59 M/mm3 (4.2-5.4); White Blood Count 5.6 K/mm3 (4.4-11.0)
[2021-12-21 09:35] LABS: ALB/GLOB Ratio 0.9 RATIO (0.9-2.4); AST(SGOT) 17 U/L (15-37); Alanine Aminotransfer ALT/SGPT 13 U/L (13-56); Albumin, Serum 2.8 g/dL (3.2-5.0); Alkaline Phosphatase 65 U/L (45-117); Anion Gap 6 (5-15); BUN 12 mg/dL (7-18); BUN/Creat Ratio 17.9 RATIO (10-20); Calcium,Total 8.9 mg/dL (8.5-10.1); Chloride 106 mmol/L (98-107); Creatinine, Serum 0.67 mg/dL (0.55-1.02); EST Glomerular Filtration Rate 91 mL/min (>60); Est Glom Filt Rate - Afr Amer 111 mL/min (>60); Globulin 3.2 g/dL (2.2-4.2); Glucose 73 mg/dL (74-106); Potassium 4.2 mmol/L (3.5-5.1); Sodium Level 140 mmol/L (136-145)
[2021-12-21 09:38] LABS: Phenytoin (Dilantin) Level 10.7 mL (10.0-20.0)
== END | disposition home or self-care (01) ==
LOC: OLS.ACH 05:00
PROVIDERS: PCP Family Medicine; Visit Provider Family Medicine
DX: G40.909 Epilepsy, unspecified, not intractable, without status epilepticus (principal); I73.89 Other specified peripheral vascular diseases; K27.9 Peptic ulcer, site unspecified, unspecified as acute or chronic, without hemorrhage or perforation
CPT/HCPCS: 36415; 80053; 80185; 85025

== ENCOUNTER → 2021-12-26 | Outpatient (REF) | payer MEDICARE, OTHER, SELFPAY ==
[2021-12-26 08:41] LABS: Absolute Lymphocyte Count 2.25 X10^3/uL (0.83-4.51); Absolute Neutrophil Count 3.2 X10^3/uL (2.0-7.7); Basophil# 0.04 X10^3/uL; Basophil% 0.6 % (0-1); Eosinophil# 0.08 X10^3/uL; Eosinophils% 1.3 % (0-5); Hematocrit 35.6 % (37-47); Hemoglobin 12.3 g/dL (12.0-15.0); Lymphocyte # 2.25 X10^3/ul (0.83-4.51); Lymphocyte % 35.4 % (19-41); Mean Corp Hgb Conc 34.6 g/dL (32-36); Mean Corpuscular Hgb 33.9 pg (27.0-32.0); Mean Corpuscular Volume 98.1 fL (81-99); Mean Platelet Vol. 11.6 fl (6.2-12.0); Monocyte# 0.79 X10^3/uL; Monocyte% 12.4 % (0-10); NRBC Flagged by Analyzer 0 % (0-5); Neutrophil # 3.18 X10^3/uL (2.7-7.7); Platelet Count 170 K/mm3 (150-450); Red Blood Count 3.63 M/mm3 (4.2-5.4); White Blood Count 6.4 K/mm3 (4.4-11.0)
[2021-12-26 09:06] LABS: AST(SGOT) 19 U/L (15-37); Alanine Aminotransfer ALT/SGPT 12 U/L (13-56); Alkaline Phosphatase 75 U/L (45-117); Anion Gap 5 (5-15); BUN 18 mg/dL (7-18); Chloride 107 mmol/L (98-107); Creatinine, Serum 0.69 mg/dL (0.55-1.02); EST Glomerular Filtration Rate 88 mL/min (>60); Est Glom Filt Rate - Afr Amer 107 mL/min (>60); Globulin 3.1 g/dL (2.2-4.2); Glucose 79 mg/dL (74-106); Potassium 4.3 mmol/L (3.5-5.1); Protein, Total 6.1 g/dL (6.4-8.2); Sodium Level 140 mmol/L (136-145)
[2021-12-26 09:10] LABS: Phenytoin (Dilantin) Level 10.5 mL (10.0-20.0); Valproic Acid (Depakene) Level 101 ug/mL (50-100)
== END | disposition home or self-care (01) ==
LOC: OLS.ACH 05:00
PROVIDERS: PCP Family Medicine; Visit Provider Family Medicine
DX: G40.909 Epilepsy, unspecified, not intractable, without status epilepticus (principal); I11.0 Hypertensive heart disease with heart failure; I50.9 Heart failure, unspecified
CPT/HCPCS: 36415; 80053; 80164; 80185; 85025

== ENCOUNTER → 2022-03-20 | Outpatient (REF) | payer MEDICARE, OTHER, SELFPAY ==
[2022-03-20 10:01] LABS: Absolute Lymphocyte Count 2.29 X10^3/uL (0.83-4.51); Absolute Neutrophil Count 3.4 X10^3/uL (2.0-7.7); Basophil# 0.06 X10^3/uL; Basophil% 0.9 % (0-1); Eosinophils% 1.5 % (0-5); Hematocrit 37.9 % (37-47); Hemoglobin 12.5 g/dL (12.0-15.0); Lymphocyte # 2.29 X10^3/ul (0.83-4.51); Lymphocyte % 35.1 % (19-41); Mean Corpuscular Hgb 32.1 pg (27.0-32.0); Mean Corpuscular Volume 97.4 fL (81-99); Mean Platelet Vol. 11.9 fl (6.2-12.0); Monocyte# 0.66 X10^3/uL; Monocyte% 10.1 % (0-10); NRBC Flagged by Analyzer 0 % (0-5); Neutrophil # 3.38 X10^3/uL (2.7-7.7); Neutrophil % 51.9 % (47-70); Platelet Count 173 K/mm3 (150-450); RBC Distribution Width CV 12.6 % (11.6-14.6); RBC Distribution Width SD 45.1 fl (35.1-43.9); Red Blood Count 3.89 M/mm3 (4.2-5.4); White Blood Count 6.5 K/mm3 (4.4-11.0)
[2022-03-20 10:07] LABS: ALB/GLOB Ratio 0.9 RATIO (0.9-2.4); AST(SGOT) 20 U/L (15-37); Alanine Aminotransfer ALT/SGPT 16 U/L (13-56); Alkaline Phosphatase 79 U/L (45-117); Anion Gap 7 (5-15); BUN 17 mg/dL (7-18); BUN/Creat Ratio 25.4 RATIO (10-20); Calcium,Total 9.1 mg/dL (8.5-10.1); Chloride 106 mmol/L (98-107); Creatinine, Serum 0.67 mg/dL (0.55-1.02); EST Glomerular Filtration Rate 91 mL/min (>60); Est Glom Filt Rate - Afr Amer 111 mL/min (>60); Globulin 3.4 g/dL (2.2-4.2); Glucose 80 mg/dL (74-106); Potassium 4.2 mmol/L (3.5-5.1); Protein, Total 6.4 g/dL (6.4-8.2); Sodium Level 140 mmol/L (136-145)
[2022-03-20 10:17] LABS: Phenytoin (Dilantin) Level 12.7 mL (10.0-20.0); Valproic Acid (Depakene) Level 134 ug/mL (50-100)
== END | disposition home or self-care (01) ==
LOC: OLS.ACH 05:00
PROVIDERS: PCP Family Medicine; Visit Provider Family Medicine
DX: G40.909 Epilepsy, unspecified, not intractable, without status epilepticus (principal); I11.0 Hypertensive heart disease with heart failure; I50.9 Heart failure, unspecified
CPT/HCPCS: 36415; 80053; 80164; 80185; 85025

== ENCOUNTER → 2022-06-12 | Outpatient (REF) | payer MEDICARE, OTHER, SELFPAY ==
[2022-06-12 08:08] LABS: Absolute Lymphocyte Count 2.92 X10^3/uL (0.83-4.51); Absolute Neutrophil Count 3.4 X10^3/uL (2.0-7.7); Basophil# 0.05 X10^3/uL; Basophil% 0.7 % (0-1); Eosinophil# 0.12 X10^3/uL; Eosinophils% 1.7 % (0-5); Hematocrit 37.2 % (37-47); Hemoglobin 12.5 g/dL (12.0-15.0); Lymphocyte # 2.92 X10^3/ul (0.83-4.51); Lymphocyte % 40.3 % (19-41); Mean Corp Hgb Conc 33.6 g/dL (32-36); Mean Corpuscular Hgb 32.6 pg (27.0-32.0); Mean Corpuscular Volume 96.9 fL (81-99); Mean Platelet Vol. 12.2 fl (6.2-12.0); Monocyte# 0.76 X10^3/uL; Monocyte% 10.5 % (0-10); NRBC Flagged by Analyzer 0 % (0-5); Neutrophil # 3.38 X10^3/uL (2.7-7.7); Neutrophil % 46.5 % (47-70); Platelet Count 155 K/mm3 (150-450); RBC Distribution Width CV 12.8 % (11.6-14.6); RBC Distribution Width SD 45.7 fl (35.1-43.9); Red Blood Count 3.84 M/mm3 (4.2-5.4); White Blood Count 7.3 K/mm3 (4.4-11.0)
[2022-06-12 08:23] LABS: Phenytoin (Dilantin) Level 13.3 mL (10.0-20.0); Valproic Acid (Depakene) Level 102 ug/mL (50-100)
[2022-06-12 08:26] LABS: ALB/GLOB Ratio 0.8 RATIO (0.9-2.4); AST(SGOT) 17 U/L (15-37); Alanine Aminotransfer ALT/SGPT 18 U/L (13-56); Albumin, Serum 2.9 g/dL (3.2-5.0); Alkaline Phosphatase 81 U/L (45-117); Anion Gap 5 (5-15); BUN 23 mg/dL (7-18); BUN/Creat Ratio 32.4 RATIO (10-20); Calcium,Total 8.9 mg/dL (8.5-10.1); Chloride 108 mmol/L (98-107); Creatinine, Serum 0.71 mg/dL (0.55-1.02); EST Glomerular Filtration Rate 85 mL/min (>60); Est Glom Filt Rate - Afr Amer 103 mL/min (>60); Globulin 3.6 g/dL (2.2-4.2); Glucose 77 mg/dL (74-106); Potassium 4.7 mmol/L (3.5-5.1); Protein, Total 6.5 g/dL (6.4-8.2); Sodium Level 141 mmol/L (136-145)
== END ==
LOC: OLS.ACH 05:00
PROVIDERS: PCP Family Medicine; Visit Provider Family Medicine
DX: G40.909 Epilepsy, unspecified, not intractable, without status epilepticus (principal); I50.9 Heart failure, unspecified; K27.9 Peptic ulcer, site unspecified, unspecified as acute or chronic, without hemorrhage or perforation
CPT/HCPCS: 36415; 80053; 80164; 80185; 85025

== ENCOUNTER → 2022-09-04 | Outpatient (REF) | payer MEDICARE, OTHER, SELFPAY ==
[2022-09-04 08:56] LABS: Absolute Neutrophil Count 2.9 X10^3/uL (2.0-7.7); Basophil# 0.05 X10^3/uL; Basophil% 0.8 % (0-1); Eosinophil# 0.12 X10^3/uL; Eosinophils% 1.9 % (0-5); Hemoglobin 12.7 g/dL (12.0-15.0); Lymphocyte % 39.9 % (19-41); Mean Corp Hgb Conc 33.4 g/dL (32-36); Mean Corpuscular Hgb 32.1 pg (27.0-32.0); Mean Platelet Vol. 11.6 fl (6.2-12.0); Monocyte# 0.65 X10^3/uL; Monocyte% 10.4 % (0-10); NRBC Flagged by Analyzer 0 % (0-5); Neutrophil # 2.92 X10^3/uL (2.7-7.7); Neutrophil % 46.7 % (47-70); Platelet Count 180 K/mm3 (150-450); RBC Distribution Width CV 12.7 % (11.6-14.6); RBC Distribution Width SD 45.3 fl (35.1-43.9); Red Blood Count 3.96 M/mm3 (4.2-5.4); White Blood Count 6.3 K/mm3 (4.4-11.0)
[2022-09-04 09:05] LABS: ALB/GLOB Ratio 0.8 RATIO (0.9-2.4); AST(SGOT) 16 U/L (15-37); Alanine Aminotransfer ALT/SGPT 12 U/L (13-56); Albumin, Serum 2.9 g/dL (3.2-5.0); Alkaline Phosphatase 108 U/L (45-117); Anion Gap 6 (5-15); BUN 14 mg/dL (7-18); BUN/Creat Ratio 25.3 RATIO (10-20); Chloride 110 mmol/L (98-107); Creatinine, Serum 0.55 mg/dL (0.55-1.02); EST Glomerular Filtration Rate 114 mL/min (>60); Est Glom Filt Rate - Afr Amer 138 mL/min (>60); Globulin 3.6 g/dL (2.2-4.2); Glucose 78 mg/dL (74-106); Potassium 4.8 mmol/L (3.5-5.1); Protein, Total 6.5 g/dL (6.4-8.2); Sodium Level 142 mmol/L (136-145)
[2022-09-04 09:07] LABS: Phenytoin (Dilantin) Level 11.7 mL (10.0-20.0); Valproic Acid (Depakene) Level 62 ug/mL (50-100)
== END ==
LOC: OLS.ACH 05:00
PROVIDERS: PCP Family Medicine; Visit Provider Family Medicine
DX: I11.0 Hypertensive heart disease with heart failure (principal); I50.9 Heart failure, unspecified; G40.909 Epilepsy, unspecified, not intractable, without status epilepticus
CPT/HCPCS: 36415; 80053; 80164; 80185; 85025

== ENCOUNTER → 2022-10-24 | Outpatient (REF) | payer MEDICARE, OTHER, SELFPAY ==
[2022-10-24 09:53] LABS: Hematocrit 36.5 % (37-47); Hemoglobin 12.4 g/dL (12.0-15.0); Mean Corpuscular Hgb 32.5 pg (27.0-32.0); Mean Corpuscular Volume 95.5 fL (81-99); Platelet Count 265 K/mm3 (150-450); RBC Distribution Width CV 12.7 % (11.6-14.6); RBC Distribution Width SD 43.8 fl (35.1-43.9); Red Blood Count 3.82 M/mm3 (4.2-5.4); White Blood Count 6.5 K/mm3 (4.4-11.0)
[2022-10-24 10:09] LABS: Phenytoin (Dilantin) Level 9.6 mL (10.0-20.0); Valproic Acid (Depakene) Level 103 ug/mL (50-100)
[2022-10-24 10:16] LABS: ALB/GLOB Ratio 0.6 RATIO (0.9-2.4); AST(SGOT) 13 U/L (15-37); Alanine Aminotransfer ALT/SGPT 11 U/L (13-56); Albumin, Serum 2.5 g/dL (3.2-5.0); Alkaline Phosphatase 92 U/L (45-117); Anion Gap 8 (5-15); BUN 12 mg/dL (7-18); BUN/Creat Ratio 20.3 RATIO (10-20); Calcium,Total 8.7 mg/dL (8.5-10.1); Chloride 106 mmol/L (98-107); Creatinine, Serum 0.59 mg/dL (0.55-1.02); EST Glomerular Filtration Rate 105 mL/min (>60); Est Glom Filt Rate - Afr Amer 127 mL/min (>60); Globulin 4.1 g/dL (2.2-4.2); Glucose 80 mg/dL (74-106); Protein, Total 6.6 g/dL (6.4-8.2); Sodium Level 141 mmol/L (136-145); Thyroid Stim Hormone (TSH) 3.19 uIU/mL (0.358-3.74)
== END ==
LOC: OLS.ACH 06:35
PROVIDERS: PCP Family Medicine; Visit Provider Internal Medicine
DX: G40.909 Epilepsy, unspecified, not intractable, without status epilepticus (principal); I50.9 Heart failure, unspecified; E03.9 Hypothyroidism, unspecified
CPT/HCPCS: 36415; 80053; 80164; 80185; 84443; 85027

== ENCOUNTER → 2022-10-30 | Outpatient (REF) | payer MEDICARE, OTHER, SELFPAY ==
[2022-10-30 09:21] LABS: Phenytoin (Dilantin) Level 9.8 mL (10.0-20.0)
== END ==
LOC: OLS.ACH 04:00
PROVIDERS: PCP Internal Medicine; Referring Provider Internal Medicine; Visit Provider Internal Medicine
DX: G40.909 Epilepsy, unspecified, not intractable, without status epilepticus (principal)
CPT/HCPCS: 36415; 80185

== ENCOUNTER → 2022-11-27 | Outpatient (REF) | payer MEDICARE, OTHER, SELFPAY ==
[2022-11-27 08:59] LABS: Absolute Lymphocyte Count 2.72 X10^3/uL (0.83-4.51); Absolute Neutrophil Count 3.2 X10^3/uL (2.0-7.7); Basophil# 0.04 X10^3/uL; Basophil% 0.6 % (0-1); Eosinophil# 0.12 X10^3/uL; Eosinophils% 1.8 % (0-5); Hematocrit 35.7 % (37-47); Hemoglobin 11.6 g/dL (12.0-15.0); Lymphocyte # 2.72 X10^3/ul (0.83-4.51); Lymphocyte % 40.6 % (19-41); Mean Corp Hgb Conc 32.5 g/dL (32-36); Mean Corpuscular Hgb 31.6 pg (27.0-32.0); Mean Corpuscular Volume 97.3 fL (81-99); Mean Platelet Vol. 11.3 fl (6.2-12.0); Monocyte# 0.62 X10^3/uL; Monocyte% 9.3 % (0-10); NRBC Flagged by Analyzer 0 % (0-5); Neutrophil # 3.18 X10^3/uL (2.7-7.7); Neutrophil % 47.4 % (47-70); Platelet Count 187 K/mm3 (150-450); RBC Distribution Width CV 13.2 % (11.6-14.6); RBC Distribution Width SD 47.7 fl (35.1-43.9); Red Blood Count 3.67 M/mm3 (4.2-5.4); White Blood Count 6.7 K/mm3 (4.4-11.0)
[2022-11-27 09:17] LABS: ALB/GLOB Ratio 0.6 RATIO (0.9-2.4); AST(SGOT) 16 U/L (15-37); Alanine Aminotransfer ALT/SGPT 14 U/L (13-56); Albumin, Serum 2.7 g/dL (3.2-5.0); Alkaline Phosphatase 96 U/L (45-117); Anion Gap 5 (5-15); BUN 21 mg/dL (7-18); BUN/Creat Ratio 32.4 RATIO (10-20); Calcium,Total 9.1 mg/dL (8.5-10.1); Chloride 107 mmol/L (98-107); Creatinine, Serum 0.65 mg/dL (0.55-1.02); EST Glomerular Filtration Rate 95 mL/min (>60); Est Glom Filt Rate - Afr Amer 115 mL/min (>60); Globulin 4.8 g/dL (2.2-4.2); Glucose 84 mg/dL (74-106); Potassium 4.7 mmol/L (3.5-5.1); Protein, Total 7.5 g/dL (6.4-8.2); Sodium Level 139 mmol/L (136-145)
[2022-11-27 10:15] LABS: Phenytoin (Dilantin) Level 10.5 mL (10.0-20.0); Valproic Acid (Depakene) Level 72 ug/mL (50-100)
== END ==
LOC: OLS.ACH 05:00
PROVIDERS: PCP Internal Medicine; Visit Provider Internal Medicine
DX: G40.909 Epilepsy, unspecified, not intractable, without status epilepticus (principal); I11.0 Hypertensive heart disease with heart failure; I50.9 Heart failure, unspecified
CPT/HCPCS: 36415; 80053; 80164; 80185; 85025

== ENCOUNTER → 2023-01-26 | Outpatient (REF) | payer MEDICARE, OTHER, SELFPAY ==
[2023-01-26 08:03] LABS: Hematocrit 37.5 % (37-47); Hemoglobin 12.1 g/dL (12.0-15.0); Mean Corp Hgb Conc 32.3 g/dL (32-36); Mean Corpuscular Hgb 31.4 pg (27.0-32.0); Mean Corpuscular Volume 97.4 fL (81-99); Mean Platelet Vol. 11.4 fl (6.2-12.0); Platelet Count 193 K/mm3 (150-450); RBC Distribution Width CV 12.7 % (11.6-14.6); RBC Distribution Width SD 45.1 fl (35.1-43.9); Red Blood Count 3.85 M/mm3 (4.2-5.4); White Blood Count 5.8 K/mm3 (4.4-11.0)
[2023-01-26 08:05] LABS: ALB/GLOB Ratio 0.9 RATIO (0.9-2.4); AST(SGOT) 17 U/L (15-37); Alanine Aminotransfer ALT/SGPT 14 U/L (13-56); Alkaline Phosphatase 98 U/L (45-117); Anion Gap 6 (5-15); BUN 17 mg/dL (7-18); BUN/Creat Ratio 23.6 RATIO (10-20); Calcium,Total 8.9 mg/dL (8.5-10.1); Chloride 109 mmol/L (98-107); Creatinine, Serum 0.72 mg/dL (0.55-1.02); EST Glomerular Filtration Rate 84 mL/min (>60); Est Glom Filt Rate - Afr Amer 101 mL/min (>60); Globulin 3.5 g/dL (2.2-4.2); Glucose 84 mg/dL (74-106); Potassium 4.5 mmol/L (3.5-5.1); Protein, Total 6.5 g/dL (6.4-8.2); Sodium Level 142 mmol/L (136-145)
== END ==
LOC: OLS.ACH 05:00
PROVIDERS: PCP Internal Medicine; Visit Provider Internal Medicine
DX: Z79.899 Other long term (current) drug therapy (principal); R05.9 Cough, unspecified; J30.9 Allergic rhinitis, unspecified
CPT/HCPCS: 36415; 80053; 85027; 87633

== ENCOUNTER → 2023-02-19 | Outpatient (REF) | payer MEDICARE, OTHER, SELFPAY ==
[2023-02-19 09:52] LABS: Absolute Lymphocyte Count 2.52 X10^3/uL (0.83-4.51); Absolute Neutrophil Count 2.9 X10^3/uL (2.0-7.7); Basophil# 0.04 X10^3/uL; Basophil% 0.6 % (0-1); Eosinophils% 1.6 % (0-5); Hematocrit 36.8 % (37-47); Hemoglobin 12.2 g/dL (12.0-15.0); Lymphocyte # 2.52 X10^3/ul (0.83-4.51); Lymphocyte % 40.2 % (19-41); Mean Corp Hgb Conc 33.2 g/dL (32-36); Mean Corpuscular Hgb 31.4 pg (27.0-32.0); Mean Corpuscular Volume 94.8 fL (81-99); Mean Platelet Vol. 12.1 fl (6.2-12.0); Monocyte# 0.69 X10^3/uL; NRBC Flagged by Analyzer 0 % (0-5); Neutrophil # 2.91 X10^3/uL (2.7-7.7); Neutrophil % 46.4 % (47-70); Platelet Count 179 K/mm3 (150-450); RBC Distribution Width CV 12.5 % (11.6-14.6); RBC Distribution Width SD 43.5 fl (35.1-43.9); Red Blood Count 3.88 M/mm3 (4.2-5.4); White Blood Count 6.3 K/mm3 (4.4-11.0)
[2023-02-19 10:14] LABS: Phenytoin (Dilantin) Level 10.8 mL (10.0-20.0); Valproic Acid (Depakene) Level 54 ug/mL (50-100)
[2023-02-19 10:16] LABS: ALB/GLOB Ratio 0.8 RATIO (0.9-2.4); AST(SGOT) 16 U/L (15-37); Alanine Aminotransfer ALT/SGPT 11 U/L (13-56); Albumin, Serum 2.9 g/dL (3.2-5.0); Alkaline Phosphatase 97 U/L (45-117); Anion Gap 8 (5-15); BUN 20 mg/dL (7-18); BUN/Creat Ratio 32.2 RATIO (10-20); Calcium,Total 9.1 mg/dL (8.5-10.1); Chloride 109 mmol/L (98-107); Creatinine, Serum 0.62 mg/dL (0.55-1.02); EST Glomerular Filtration Rate 99 mL/min (>60); Est Glom Filt Rate - Afr Amer 120 mL/min (>60); Globulin 3.6 g/dL (2.2-4.2); Glucose 80 mg/dL (74-106); Potassium 4.4 mmol/L (3.5-5.1); Protein, Total 6.5 g/dL (6.4-8.2); Sodium Level 142 mmol/L (136-145)
== END ==
LOC: OLS.ACH 04:00
PROVIDERS: PCP Internal Medicine; Referring Provider Internal Medicine; Visit Provider Internal Medicine
DX: G40.909 Epilepsy, unspecified, not intractable, without status epilepticus (principal); I11.0 Hypertensive heart disease with heart failure; I50.9 Heart failure, unspecified; K27.9 Peptic ulcer, site unspecified, unspecified as acute or chronic, without hemorrhage or perforation
CPT/HCPCS: 36415; 80053; 80164; 80185; 85025

== ENCOUNTER → 2023-05-14 | Outpatient (REF) | payer MEDICARE, OTHER, SELFPAY ==
[2023-05-14 09:21] LABS: Absolute Lymphocyte Count 2.33 X10^3/uL (0.83-4.51); Absolute Neutrophil Count 3.2 X10^3/uL (2.0-7.7); Basophil# 0.06 X10^3/uL; Basophil% 0.9 % (0-1); Eosinophil# 0.13 X10^3/uL; Hemoglobin 12.2 g/dL (12.0-15.0); Lymphocyte # 2.33 X10^3/ul (0.83-4.51); Lymphocyte % 36.5 % (19-41); Mean Corp Hgb Conc 32.1 g/dL (32-36); Mean Corpuscular Hgb 30.9 pg (27.0-32.0); Mean Corpuscular Volume 96.2 fL (81-99); Mean Platelet Vol. 12.1 fl (6.2-12.0); Monocyte# 0.66 X10^3/uL; Monocyte% 10.3 % (0-10); NRBC Flagged by Analyzer 0 % (0-5); Neutrophil # 3.19 X10^3/uL (2.7-7.7); Platelet Count 175 K/mm3 (150-450); RBC Distribution Width SD 46.6 fl (35.1-43.9); Red Blood Count 3.95 M/mm3 (4.2-5.4); White Blood Count 6.4 K/mm3 (4.4-11.0)
[2023-05-14 09:39] LABS: ALB/GLOB Ratio 0.9 RATIO (0.9-2.4); AST(SGOT) 18 U/L (15-37); Alanine Aminotransfer ALT/SGPT 16 U/L (13-56); Albumin, Serum 3.2 g/dL (3.2-5.0); Alkaline Phosphatase 111 U/L (45-117); Anion Gap 3 (5-15); BUN 19 mg/dL (7-18); BUN/Creat Ratio 28.6 RATIO (10-20); Calcium,Total 8.8 mg/dL (8.5-10.1); Chloride 107 mmol/L (98-107); Creatinine, Serum 0.66 mg/dL (0.55-1.02); EST Glomerular Filtration Rate 92 mL/min (>60); Est Glom Filt Rate - Afr Amer 111 mL/min (>60); Globulin 3.5 g/dL (2.2-4.2); Glucose 87 mg/dL (74-106); Potassium 4.7 mmol/L (3.5-5.1); Protein, Total 6.7 g/dL (6.4-8.2); Sodium Level 138 mmol/L (136-145)
[2023-05-14 11:07] LABS: Phenytoin (Dilantin) Level 8.9 mL (10.0-20.0); Valproic Acid (Depakene) Level 62 ug/mL (50-100)
== END ==
LOC: OLS.ACH 04:00
PROVIDERS: PCP Internal Medicine; Referring Provider Internal Medicine; Visit Provider Internal Medicine
DX: I11.0 Hypertensive heart disease with heart failure (principal); I50.9 Heart failure, unspecified; G40.909 Epilepsy, unspecified, not intractable, without status epilepticus
CPT/HCPCS: 36415; 80053; 80164; 80185; 85025

== ENCOUNTER → 2023-08-06 | Outpatient (REF) | payer MEDICARE, OTHER, SELFPAY ==
[2023-08-06 09:03] LABS: Absolute Lymphocyte Count 2.35 X10^3/uL (0.83-4.51); Basophil# 0.05 X10^3/uL; Basophil% 0.8 % (0-1); Eosinophil# 0.13 X10^3/uL; Eosinophils% 2.1 % (0-5); Hematocrit 37.4 % (37-47); Hemoglobin 12.1 g/dL (12.0-15.0); Lymphocyte # 2.35 X10^3/ul (0.83-4.51); Mean Corp Hgb Conc 32.4 g/dL (32-36); Mean Corpuscular Volume 95.9 fL (81-99); Mean Platelet Vol. 11.8 fl (6.2-12.0); Monocyte# 0.64 X10^3/uL; Monocyte% 10.3 % (0-10); NRBC Flagged by Analyzer 0 % (0-5); Neutrophil % 48.5 % (47-70); Platelet Count 169 K/mm3 (150-450); RBC Distribution Width CV 13.1 % (11.6-14.6); RBC Distribution Width SD 46.5 fl (35.1-43.9); White Blood Count 6.2 K/mm3 (4.4-11.0)
[2023-08-06 09:15] LABS: Valproic Acid (Depakene) Level 102 ug/mL (50-100)
[2023-08-06 09:17] LABS: ALB/GLOB Ratio 0.9 RATIO (0.9-2.4); AST(SGOT) 16 U/L (15-37); Alanine Aminotransfer ALT/SGPT 18 U/L (13-56); Albumin, Serum 3.1 g/dL (3.2-5.0); Alkaline Phosphatase 99 U/L (45-117); Anion Gap 3 (5-15); BUN 16 mg/dL (7-18); BUN/Creat Ratio 21.8 RATIO (10-20); Calcium,Total 8.9 mg/dL (8.5-10.1); Chloride 108 mmol/L (98-107); Creatinine, Serum 0.74 mg/dL (0.55-1.02); EST Glomerular Filtration Rate 82 mL/min (>60); Est Glom Filt Rate - Afr Amer 99 mL/min (>60); Globulin 3.6 g/dL (2.2-4.2); Glucose 90 mg/dL (74-106); Potassium 4.5 mmol/L (3.5-5.1); Protein, Total 6.7 g/dL (6.4-8.2); Sodium Level 140 mmol/L (136-145)
== END ==
LOC: OLS.ACH 05:00
PROVIDERS: PCP Internal Medicine; Visit Provider Internal Medicine
DX: G40.909 Epilepsy, unspecified, not intractable, without status epilepticus (principal); I11.0 Hypertensive heart disease with heart failure; I50.9 Heart failure, unspecified
CPT/HCPCS: 36415; 80053; 80164; 80185; 85025

== ENCOUNTER → 2023-08-15 | Outpatient (REF) | payer MEDICARE, OTHER, SELFPAY ==
[2023-08-15 09:39] LABS: Phenytoin (Dilantin) Level 8.2 mL (10.0-20.0); Valproic Acid (Depakene) Level 91 ug/mL (50-100)
== END ==
LOC: OLS.ACH 05:00
PROVIDERS: PCP Internal Medicine; Visit Provider Internal Medicine
DX: G40.909 Epilepsy, unspecified, not intractable, without status epilepticus (principal)
CPT/HCPCS: 36415; 80164; 80185

== ENCOUNTER 2023-09-18 10:15 | Emergency (ER) | payer MEDICARE, OTHER, SELFPAY ==
[2023-09-18 10:16] VITALS: BP 150/73; PULSE 93; RESP 20; TEMP 36.4; O2SAT 93
--- NOTE | 2023-09-18 10:16 | CT_ITS ---
STUDY: CT BRAIN WITHOUT CONTRAST REASON FOR EXAM: Female, 78 years old. Prolonged seizure RADIATION DOSAGE (If Supplied By Facility): CTDIvol = ( 44.99 ) mGy, DLP = ( 779.24 ) mGycm TECHNIQUE: Transaxial CT imaging of the brain was performed without administration of intravenous contrast material. Individualized dose optimization techniques were used for this CT. COMPARISON: No relevant priors. FINDINGS: Normal soft tissue structures. There is hyperostosis frontalis internus. There is mild cerebral atrophy with widening of the extra-axial spaces and ventricular dilatation. There are areas of decreased attenuation within the white matter tracts of the supratentorial brain, consistent with microvascular disease changes. There are small punctate calcifications of the basal ganglia which are seen in the aging brain as a normal variant. Normal brainstem. There is severe cerebellar atrophy. There is no intracranial hemorrhage. There are no findings of an acute ischemic infarction. Atherosclerotic plaque formation of the vertebral arteries and cavernous portions of the internal carotid arteries bilaterally. Normal visualized paranasal sinuses. CT/Brain/Head without Contrast IMPRESSION: Chronic involutional changes of the brain. Electronically Signed: Darwin Mcbride MD at 11:08 EST ,
[2023-09-18 10:17] VITALS: BMI 32.8
--- NOTE | 2023-09-18 10:18 | EX.ED.DYSGE1 ---
HPI History of Present Illness Chief Complaint: Seizure Informant: patient, EMS and SNF Narrative Narrative: 78-year-old [place] patient with a history of seizure disorder has not had a seizure for a long time but upon going into give her her morning medications, nurses found her having a seizure that they approximate lasted 12 minutes. She was foaming at the mouth and it sounds like tonic-clonic activity throughout. Upon EMS arriving, they state that she was responsive and close to her baseline as she is now, as she is more alert. Baseline is alert and oriented x 1. She denies any complaints right now. Apparently she had COVID 1 or 2 weeks ago, she states she still has a bit of cough and does not feel out of breath or have a headache. PFSH PFSH Medical History unable to obtain Home Medications acetaminophen 325 mg tablet 650 mg PO DAILY PAIN 09/18/23 [History Last Taken Unknown] albuterol sulfate 90 mcg/actuation aerosol inhaler 2 inh inhalation Q4H PRN shortness of breath or wheezing 09/18/23 [History Last Taken Unknown] cholecalciferol (vitamin D3) 50 mcg (2,000 unit) tablet 50 mcg PO DAILY 09/18/23 [History Last Taken Unknown] docusate sodium 100 mg capsule 100 mg PO DAILY PRN constipation 09/18/23 [History Last Taken Unknown] escitalopram oxalate 20 mg tablet 20 mg PO DAILY 09/18/23 [History Last Taken Unknown] ethosuximide 250 mg capsule 250 mg PO Q12H 09/18/23 [History Last Taken Unknown] fluticasone propionate 44 mcg/actuation HFA aerosol inhaler (Flovent HFA) 2 puff inhalation Q12H 09/18/23 [History Last Taken Unknown] fluticasone propionate 50 mcg/actuation nasal spray,suspension 2 spray intranasal DAILY 09/18/23 [History Last Taken Unknown] furosemide 20 mg tablet 20 mg PO MOWEFR 09/18/23 [History Last Taken Unknown] levothyroxine 50 mcg tablet 50 mcg PO DAILY 09/18/23 [History Last Taken Unknown] losartan 25 mg tablet 25 mg PO DAILY 09/18/23 [History Last Taken Unknown] melatonin 3 mg tablet 3 mg PO DAILY 09/18/23 [History Last Taken Unknown] pantoprazole 40 mg tablet,delayed release 40 mg PO DAILY 09/18/23 [History Last Taken Unknown] phenytoin sodium extended 100 mg capsule 100 mg PO Q12H 09/18/23 [History Last Taken Unknown] potassium chloride 10 mEq tablet,extended release 10 meq PO BID 09/18/23 [History Last Taken Unknown] valproic acid 250 mg capsule 750 mg PO Q8H 09/18/23 [History Last Taken Unknown] Allergy/AdvReac Type Severity Reaction Status Date / Time No Known Allergies Allergy Verified 09/18/23 11:58 Family History unable to obtain Surgical History unable to obtain Social History Smoking Status: Unknown if ever smoked ROS ROS ED Review of Systems ROS Unobtainable: due to mental condition Eyes Eyes: Denies blurry vision Cardiovascular Cardiovascular: Denies chest pain Respiratory/Chest Respiratory/Chest: Reports cough; Denies dyspnea Gastrointestinal Gastrointestinal: Denies abdominal pain or nausea Musculoskeletal Musculoskeletal: Denies back pain, extremity pain or neck pain Neurologic Neurologic: Denies headache(s), paresthesias or weakness EXAM Physical Exam Const Vital Signs: 09/18/23 10:16 09/18/23 11:58 Temperature 97.5 F L 98.1 F Temperature Source Temporal Temporal Pulse Rate 93 Respiratory Rate 20 H Blood Pressure 150/73 H Blood Pressure Mean 98 Pulse Ox 93 Oxygen Delivery Method Room Air Positive well nourished and well developed General Appearance ED: well developed and NAD HEENT Reports moist mucous membranes normocephalic and atraumatic Eyes PERRL and EOMs intact bilaterally Neck full ROM and supple Resp normal respiratory effort and clear to auscultation bilaterally Cardio regular rate, regular rhythm and no murmurs GI non-tender and non-distended Auscultation: normoactive bowel sounds Palpation: soft Back/Spine no CVA tenderness General Back: other FROM Extremity normal to inspection General Extremety ED: Yes edema; Negative for pulses abnormal or tenderness General Extremity: edema bilateral lower extremity Details: mild (Symmetric, no calf tenderness or palpable cords no cellulitis or tenderness); Negative for pulses abnormal Neuro CN's II-XII intact bilaterally and no sensory deficits noted Neuro Narrative: No neurologic asymmetry or lateralizing deficits. Alert and oriented to person, she knows the name of the facility she lives in but not the city or the state. Sensorium / Orientation: awake, alert and orientation impaired Motor Exam: general weakness Skin no rashes or lesions noted and no wounds MDM MDM MDM Narrative Medical decision making narrative: Patient appears to be on Dilantin and Depakote for seizures, she did not have her morning doses today and presents just after 10 AM. Levels of both are sent in addition to other labs and a CT of the head in order to rule out intracranial hemorrhage. CT of the head was obtained in order to rule out intracranial injury/bleed, I reviewed the images and report which I agree with, negative for anything acute. Chest x-ray 1 view on my interpretation shows no acute pneumonia radiology interpretation reviewed as well. Her labs are noted, her valproic acid level is in the therapeutic range so she was given her routine morning dose, her phenytoin level was low at 9.6 so she was given an IV load of half of the usual 17 mg/kg, given that her level is about half of therapeutic. She had no further seizure activity in the emergency department. She was given Tylenol for headache. When the phenytoin is done infusing if she has no further seizure activity plan will be to discharge her back to the [place] [facility]. Lab Data Attestation: I reviewed the patient's lab results. Labs: Laboratory Results - last 24 hr 09/18/23 10:22 WBC 5.7 RBC 4.37 Hgb 13.4 Hct 41.0 MCV 93.8 MCH 30.7 MCHC 32.7 RDW Std Deviation 43.6 RDW Coeff of Holli 12.5 Plt Count 210 MPV 10.9 Immature Gran % (Auto) 0.700 Neut % (Auto) 64.8 Lymph % (Auto) 23.9 Swain % (Auto) 8.0 Eos % (Auto) 1.6 Baso % (Auto) 1.0 Absolute Neuts (auto) 3.7 Absolute Lymphs (auto) 1.37 Nucleated RBC % 0 Sodium 138 Potassium 4.0 Chloride 106 Carbon Dioxide 26.0 Anion Gap 6 BUN 13 Creatinine 0.78 Estim Creat Clear Calc 41.33 Est GFR (MDRD) Af Amer 92 Est GFR (MDRD) Non-Af 76 BUN/Creatinine Ratio 16.6 Glucose 107 H Calcium 9.1 Phenytoin 9.6 L Valproic Acid 70 Radiography Diagnostic Testing: Clinical Impression(s) from Imaging Studies Brain CT 09/18/23 10:16 IMPRESSION: Chronic involutional changes of the brain. Electronically Signed: Darwin Mcbride MD at 11:08 EST , Chest X-Ray 09/18/23 10:30 IMPRESSION: Elevation of the right hemidiaphragm with mild right basilar linear atelectasis. Electronically Signed: Dariwn Mcbride MD at 10:52 EST , Rhythm Strip Rhythm Strip: Sinus Rhythm Rate: 93 Ectopy: None Discharge Plan Triage Chief Complaint: Seizure ED Provider: Kee Amezquita Dx/Rx/DC Orders Clinical Impression: Breakthrough seizure, Hx of seizure disorder Instructions: ED Seizure, Recurrent (Adult) Prescriptions: No Action docusate sodium 100 mg capsule 100 mg PO DAILY PRN (Reason: constipation) acetaminophen 325 mg tablet 650 mg PO DAILY cholecalciferol (vitamin D3) 50 mcg (2,000 unit) tablet 50 mcg PO DAILY phenytoin sodium extended 100 mg capsule 100 mg PO Q12H fluticasone propionate 50 mcg/actuation spray,suspension 2 spray INTRANASAL DAILY fluticasone propionate [Flovent HFA] 44 mcg/actuation HFA aerosol inhaler 2 puff INHALATION Q12H potassium chloride 10 mEq tablet extended release 10 meq PO BID valproic acid 250 mg capsule 750 mg PO Q8H albuterol sulfate 90 mcg/actuation HFA aerosol inhaler 2 inh inhalation Q4H PRN (Reason: shortness of breath or wheezing) furosemide 20 mg tablet 20 mg PO MOWEFR levothyroxine 50 mcg tablet 50 mcg PO DAILY escitalopram oxalate 20 mg tablet 20 mg PO DAILY losartan 25 mg tablet 25 mg PO DAILY melatonin 3 mg tablet 3 mg PO DAILY pantoprazole 40 mg tablet,delayed release (DR/EC) 40 mg PO DAILY ethosuximide 250 mg capsule 250 mg PO Q12H Primary Care Provider: Todd Velasquez Referrals: Todd Velasquez Sr., DO [Non-Staff] - 5-7 Days Todd Velasquez MD [Primary Care Provider] - Disposition Disposition: Home, Self Care
--- NOTE | 2023-09-18 10:30 | RAD_ITS ---
STUDY: X-RAY CHEST REASON FOR EXAM: Female, 78 years old. Cough, seizure TECHNIQUE: PA and lateral views of the chest. COMPARISON: None. FINDINGS: EKG electrodes are seen. There is elevation of the right hemidiaphragm. Mild linear atelectasis at the right lung base. There is no demonstrated pleural abnormality. Normal size heart. Normal mediastinum and olga. Normal visualized pulmonary arteries. Normal visualized aortic arch and descending thoracic aorta. There is demineralization of the osseous structures. Normal visualized ribs, clavicles, and shoulders. There is no demonstrated abnormality of the visualized soft tissue structures of the upper abdomen. RAD/Chest PA and Lateral IMPRESSION: Elevation of the right hemidiaphragm with mild right basilar linear atelectasis. Electronically Signed: Darwin Mcbride MD at 10:52 EST ,
[2023-09-18 10:32] LABS: Absolute Lymphocyte Count 1.37 X10^3/uL (0.83-4.51); Absolute Neutrophil Count 3.7 X10^3/uL (2.0-7.7); Basophil# 0.06 X10^3/uL; Eosinophil# 0.09 X10^3/uL; Eosinophils% 1.6 % (0-5); Hemoglobin 13.4 g/dL (12.0-15.0); Lymphocyte # 1.37 X10^3/ul (0.83-4.51); Lymphocyte % 23.9 % (19-41); Mean Corp Hgb Conc 32.7 g/dL (32-36); Mean Corpuscular Hgb 30.7 pg (27.0-32.0); Mean Corpuscular Volume 93.8 fL (81-99); Mean Platelet Vol. 10.9 fl (6.2-12.0); Monocyte# 0.46 X10^3/uL; NRBC Flagged by Analyzer 0 % (0-5); Neutrophil # 3.72 X10^3/uL (2.7-7.7); Neutrophil % 64.8 % (47-70); Platelet Count 210 K/mm3 (150-450); RBC Distribution Width CV 12.5 % (11.6-14.6); RBC Distribution Width SD 43.6 fl (35.1-43.9); Red Blood Count 4.37 M/mm3 (4.2-5.4); White Blood Count 5.7 K/mm3 (4.4-11.0)
[2023-09-18 10:43] LABS: Anion Gap 6 (5-15); BUN 13 mg/dL (7-18); BUN/Creat Ratio 16.6 RATIO (10-20); Calcium,Total 9.1 mg/dL (8.5-10.1); Chloride 106 mmol/L (98-107); Creatinine, Serum 0.78 mg/dL (0.55-1.02); EST Glomerular Filtration Rate 76 mL/min (>60); Est Glom Filt Rate - Afr Amer 92 mL/min (>60); Estimated Creatinine Clearance 41.33 ml/min; Glucose 107 mg/dL (74-106); Sodium Level 138 mmol/L (136-145)
[2023-09-18 11:12] LABS: Phenytoin (Dilantin) Level 9.6 mL (10.0-20.0); Valproic Acid (Depakene) Level 70 ug/mL (50-100)
[2023-09-18 11:58] VITALS: TEMP 36.7; BMI 33.7
[2023-09-18] MEDS: Valproic Acid 250 MG/5 ML UDC 750 MG PO (12:19)
[2023-09-18] MEDS: Acetaminophen 500 MG Tablet 1000 MG PO (12:19)
[2023-09-18 13:27] VITALS: BP 141/72; PULSE 70; RESP 20; O2SAT 94
--- NOTE | 2023-09-18 13:45 | ED.RN ---
SPOKE WITH INDIO RN AT [facility] ABOUT DISCHARGE OF PT. WAITING FOR [facility]QU[facility] TO [employer] PT. ERNESTINE CALIX NOTIFIED WELL
== END 2023-09-18 14:10 ==
PROVIDERS: Emergency Provider Emergency Medicine; PCP Internal Medicine; Referring Provider Emergency Medicine; Visit Provider Emergency Medicine
DX: G40.909 Epilepsy, unspecified, not intractable, without status epilepticus (principal); Z79.899 Other long term (current) drug therapy; Z79.890 Hormone replacement therapy
CPT/HCPCS: 70450; 71046; 80048; 80164; 80185; 85025; 96365; 99285; J7050; A4216

== ENCOUNTER → 2023-09-25 | Outpatient (REF) | payer MEDICARE, OTHER, MEDICAID, SELFPAY ==
--- OUTSIDE RECORDS SUMMARY | 2023-09-25 04:30 | XMS RPT_ITS | CCD ---
Author Name Unknown Address [address] [facility] [address] [place] [address] Organization [facility] Care Team Providers Care Doctor Of Nursing Practice Name Role Phone UNKNOWN, PROVIDER Referring Unavailable Orville Mendoza Primary Care Unavailable Tj Peguero Attending Unavailable Orville Mendoza Attending Unavailable UNKNOWN, PROVIDER Referring Unavailable Orville Mendoza Primary Care Unavailable Orville Mendoza Primary Care Provider Alek DE SANTIAGO.GLOVE FORMER, Claudia Unavailable [phone] Medications Completed/Discontinued Medications Medication Drug Class(es) Dates Sig (Normalized) Sig (Original) acetaminophen 325 mg oral tablet (2 sources) take 2 tablets by mouth every six hours as needed acetaminophen (TYLENOL) 325 mg tablet Take 650 mg by mouth every 6 hours as needed. 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] Onset: 06-06-2018 08-07-2018 Chronic Other gastrointestinal disorders (2 sources) Dysphagia, oropharyngeal phase; 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: [Dysphagia, oropharyngeal phase] Onset: 01-22-2019 Episodic Past or Other Problems Problem Classification Problem Date Documented Da te Episodic/Chronic Epilepsy; convulsions (2 sources) Unspecified convulsions; 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: [Unspecified convulsions] Onset: 06-06-2018 Episodic Other aftercare (2 sources) H/O: high risk medication; 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] Onset: 08-07-2018 08-07-2018 Episodic Other nervous system disorders (2 sources) Ataxia; 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: [Ataxia, unspecified] Onset: 08-07-2018 08-07-2018 Episodic Other nervous system disorders (2 sources) Dysarthria; 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: [Dysarthria and anarthria] Onset: 08-07-2018 08-07-2018 Episodic Other screening for suspected conditions (not mental disorders or infectious disease) (2 sources) Other specified abnormal findings of blood chemistry; 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: [Other specified abnormal findings of blood chemistry] Onset: 06-06-2018 Episodic Results Test Name Value Interpretation Reference Range Facil ity Encounters Encounter Date Encounter Type Care Provider Facility Start: 08-10-2023 Telephone encounter Neurology Provid er Neurology Plan of Treatment Date Care Activity Detail Author Start: 06-15-2023 Influenza vaccination Influenza Vacc ine (#1) [facility] Start: 10-15-2022 Advance Directive Discussion Advance Directive Discussion [facility] Start: 10-15-2022 Depression Assessment Depression Ass essment [facility] Start: 08-07-2021 Diabetes Screening Diabetes Screenin g [facility] Start: 2012 Bone Density Screening Bone Density Screening [facility] Start: 2012 Pneumococcal Vaccine : 65+ (1 - PCV) Pneumococcal Vaccine: 65+ (1 - PCV) [facility] Start: 2007 RSV Vaccine (1 - 1-d ose 60+ series) RSV Vaccine (1 - 1-dose 60+ series) [facility] Start: 1997 Shingrix Vaccine (1 of 2) Shingrix V accine (1 of 2) [facility] Start: 1966 Urine microalbumin profile DTaP,Tdap,Td Vaccine (1 - Tdap) [facility] Start: 1965 Hepatitis C Screening Hepatitis C Sc leni [facility] Start: 01-07-1946 Covid-19 Vaccine (#1) Covid-19 Vacci ne (#1) [facility] Payers Date Payer Category Payer Private Health Insurance 2012 Medicare 1945 Unknown [id number] 1945 Unknown [id number] Social History Date Type Detail Facility Start: 08-07-2018 [facility] Start: 08-07-2018 Tobacco use and exposure Smoke less tobacco non-user [facility] Start: 09-01-2019 End: 09-19-2020 History of Social function [facility] Start: 09-01-2019 End: 09-19-2020 Tobacco use panel [facility] Adult Depression Scr eening Assessment 0 [facility] Start: 1945 Sex Assigned At Not on file [facility] Note 08-10-2023 Telephone Encounter - Jacki Paulino - 08/10/2023 2:31 PM EDT Note Date & Type Note Facility 08-10-2023 Miscellaneous Notes Formattin g of this note might be different from the original. Mireille from [facility] called to request medical records for the neurologist. Requested they fax a cover sheet for proof of fax number. Used faxed cover sheet to fax office notes from , 07/29/2019 & 01/24/2019. Wrote a note on the faxed cover sheet. Explained the patient hasn't been seen in over four years. The patient would have to schedule a new patient appointment to re-establish. Provided the phone number to call and schedule the appointment. [phone] documented in this encounter [facility] Note 08-08-2023 Telephone Encounter - Duncan Nava Jr., MD - 08/08/2023 10:30 AM EDTTelephone Encounter - Duncan Nava Jr., MD - 08/08/2023 10:29 AM EDT Note Date & Type Note Facility 08-08-2023 Miscellaneous Notes Formattin g of this note might be different from the original. Appears following with Dr. Pereira. Will forward. Duncan Nava MD I did not order labs. Pt needs follow up. Not seen in 3+ years. Duncan Nava MD Fax received from [facility] requesting labs to be reviewed by Dr. Nava and a reply. Pt has not been seen in neurology department since 2019. Please review and advise. Scan on 08/07/2023 11:31 AM by Provider, External, ANABELL: Outside Labs Roxi Servin LPN documented in this encounter [facility] Summary Purpose Family History No Family History Records FoundNo Family History Records FoundNo Family History Records FoundNo Family History Records FoundNo Family History Records FoundNo Family History Records Found Advance Directives No Advanced Directives Records FoundNo Advanced Directives Records FoundNo Advanced Directives Records FoundNo Advanced Directives Records FoundNo Advanced Directives Records FoundNo Advanced Directives Records Found Additional Source Comments INFORMATION SOURCE (unrecogn ized section and content) DATE CREATED AUTHOR AUTHOR'S ORGANIZ ATION 07/30/2019 [facility] DATE CREATED AUTHOR AUTHOR'S ORGANIZ ATION 03/04/2020 [facility] DATE CREATED AUTHOR AUTHOR'S ORGANIZ ATION 10/04/2022 [facility] DATE CREATED AUTHOR AUTHOR'S ORGANIZ ATION 08/15/2023 [facility] Source Comments (unrecognize d section and content) In the event this informatio n is protected by the Federal Confidentiality of Alcohol and Drug Abuse Patient Records regulations: The Federal rules restrict any use of the information to criminally investigate or prosecute any alcohol or drug abuse patient.[facility] the event this information is protected by the Federal Confidentiality of Alcohol and Drug Abuse Patient Records regulations: The Federal rules restrict any use of the information to criminally investigate or prosecute any alcohol or drug abuse patient.[facility] Reason for Visit (unrecogniz ed section and content) Reason Comments Release Of Medical Records Care Teams (unrecognized sec tion and content) Doctor Of Nursing Practice Relationship Specialty Start Date End Date Orville Mendoza [address] [place] [address] PCP - General Family Medicine 08/07/18 Claudia Gaston APRN.CNP [address] [place] [address] Referring Neurosurgery 07/29/19 FOR RECORDS PERTAINING TO PATIENTS WHO ARE OR HAVE BEEN ENROLLED IN A CHEMICAL DEPENDENCY/SUBSTANCEABUSE PROGRAM, SOME INFORMATION MAY BE OMITTED. This clinical summary was aggregated from multiple sources. Caution should be exercised in using it in the provision of clinical care. This summary normalizes information from multiple sources, and as a consequence, information in this document may materially change the coding, format and clinical context of patient data. In addition, data may be omitted in some cases. CLINICAL DECISIONS SHOULD BE BASED ON THE PRIMARY CLINICAL RECORDS. [employer] provides no warranty or guarantee of the accuracy or completeness of information in this document.
[2023-09-25 10:19] LABS: Phenytoin (Dilantin) Level 9.6 mL (10.0-20.0)
== END ==
LOC: OLS.ACH 05:00
PROVIDERS: PCP Internal Medicine; Visit Provider Internal Medicine
DX: G40.909 Epilepsy, unspecified, not intractable, without status epilepticus (principal)
CPT/HCPCS: 36415; 80185

== ENCOUNTER → 2023-10-29 | Outpatient (REF) | payer MEDICARE, OTHER, SELFPAY ==
--- OUTSIDE RECORDS SUMMARY | 2023-10-29 04:17 | XMS RPT_ITS | CCD ---
Author Name Unknown Address [address] [place] [address] Organization [facility] Care Team Providers Care Mail Carrier Technician Name Role Phone UNKNOWN, PROVIDER Referring Unavailable Orville Mendoza Primary Care Unavailable Tj Peguero Attending Unavailable Orville Mendoza Attending Unavailable UNKNOWN, PROVIDER Referring Unavailable Orville Mendoza Primary Care Unavailable Orville Mendoza Primary Care Provider Alek DE SANTIAGO.DWAYNE Claudia Unavailable Medications Completed/Discontinued Medications Medication Drug Class(es) Dates [...] sources) H/O: high risk medication; 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] Onset: 08-07-2018 08-07-2018 Episodic [...] 06-15-2023 Influenza vaccination Influenza Vacc ine (#1) [facility] Start: 10-15-2022 Advance Directive Discussion Advance Directive Discussion [facility] Start: 10-15-2022 Depression Assessment Depression Ass essment [facility] Start: 08-07-2021 Diabetes Screening Diabetes Screenin g [facility] Start: 2012 Bone Density Screening Bone Density Screening [facility] Start: 2012 Pneumococcal Vaccine : 65+ (1 - PCV) Pneumococcal Vaccine: 65+ (1 - PCV) [facility] Start: 2007 RSV Vaccine (1 - 1-d ose 60+ series) RSV Vaccine (1 - 1-dose 60+ series) [facility] Start: 1997 Shingrix Vaccine (1 of 2) Shingrix V accine (1 of 2) [facility] Start: 1966 Urine microalbumin profile DTaP,Tdap,Td Vaccine (1 - Tdap) [facility] Start: 1965 Hepatitis C Screening Hepatitis C Sc leni [facility] Start: 01-07-1946 Covid-19 Vaccine (#1) Covid-19 Vacci ne (#1) [facility] Payers Date Payer Category Payer Private Health Insurance 2012 Medicare 1945 Unknown [id number] 1945 Unknown [id number] Social History Date Type Detail Facility [facility]: [facility] Start: 08-07-2018 Tobacco use and exposure Smoke less tobacco non-user [facility] Start: 09-01-2019 End: 09-19-2020 History of Social function [facility] Start: 09-01-2019 End: 09-19-2020 Tobacco use panel [facility] Adult Depression Scr eening Assessment 0 [facility] Start: 1945 Sex Assigned At Not on file C [facility] Clinic Note 08-10-2023 Telephone Encounter - Jacki Paulino - 08/10/2023 2:31 PM EDT Note Date & Type Note Facility 08-10-2023 Miscellaneous Notes Formattin g of this note might be different from the original. Mireille from [facility] called to request medical records for the [...] number to call and schedule the appointment. [phone] documented in this encounter [facility] Note 08-08-2023 Telephone Encounter - Duncan Nava [...] years. Duncan Nava MD Fax received from [facility] requesting labs to be reviewed by Dr. Nava and a reply. Pt has not been seen in neurology department since 2019. Please review and advise. Scan on 08/07/2023 11:31 AM by Provider, External, ANABELL: Outside Labs Roxi Servin LPN documented in this encounter [facility] Summary Purpose Family History No Family History [...] CREATED AUTHOR AUTHOR'S ORGANIZ ATION 07/30/2019 [facility] DATE CREATED AUTHOR AUTHOR'S ORGANIZ ATION 03/04/2020 [facility] DATE CREATED AUTHOR AUTHOR'S ORGANIZ ATION 10/04/2022 [facility] DATE CREATED AUTHOR AUTHOR'S ORGANIZ ATION 08/15/2023 [facility] Source Comments (unrecognize d section and content) In the event this informatio n is protected by the Federal Confidentiality of Alcohol and Drug Abuse Patient Records regulations: The Federal rules restrict any use of the information to criminally investigate or prosecute any alcohol or drug abuse patient.[facility] the event this information is protected by the Federal Confidentiality of Alcohol and Drug Abuse Patient Records regulations: The Federal rules restrict any use of the information to criminally investigate or prosecute any alcohol or drug abuse patient.[facility] Reason for Visit (unrecogniz ed section and content) Reason Comments Release Of Medical Records Care Teams (unrecognized sec tion and content) Mail Carrier Technician Relationship Specialty Start Date End Date Orville Mendoza [address] [place] [address] PCP - General Family Medicine 08/07/18 Claudia Gaston APRN.CNP [address] [place] [address] Referring Neurosurgery 07/29/19 FOR RECORDS PERTAINING TO [...] BE BASED ON THE PRIMARY CLINICAL RECORDS. [employer] provides no warranty or guarantee of the accuracy or completeness of information in this document.
[2023-10-29 07:55] LABS: Absolute Lymphocyte Count 2.23 X10^3/uL (0.83-4.51); Absolute Neutrophil Count 4.7 X10^3/uL (2.0-7.7); Basophil# 0.06 X10^3/uL; Basophil% 0.7 % (0-1); Eosinophil# 0.13 X10^3/uL; Eosinophils% 1.6 % (0-5); Hematocrit 36.7 % (37-47); Hemoglobin 12.1 g/dL (12.0-15.0); Lymphocyte # 2.23 X10^3/ul (0.83-4.51); Lymphocyte % 27.7 % (19-41); Mean Corpuscular Hgb 30.9 pg (27.0-32.0); Mean Corpuscular Volume 93.9 fL (81-99); Mean Platelet Vol. 11.4 fl (6.2-12.0); Monocyte# 0.92 X10^3/uL; Monocyte% 11.4 % (0-10); NRBC Flagged by Analyzer 0 % (0-5); Neutrophil # 4.68 X10^3/uL (2.7-7.7); Neutrophil % 58.1 % (47-70); Platelet Count 194 K/mm3 (150-450); RBC Distribution Width SD 44.3 fl (35.1-43.9); Red Blood Count 3.91 M/mm3 (4.2-5.4); White Blood Count 8.1 K/mm3 (4.4-11.0)
[2023-10-29 10:50] LABS: ALB/GLOB Ratio 0.8 RATIO (0.9-2.4); AST(SGOT) 19 U/L (15-37); Alanine Aminotransfer ALT/SGPT 12 U/L (13-56); Albumin, Serum 3.2 g/dL (3.2-5.0); Alkaline Phosphatase 103 U/L (45-117); Anion Gap 7 (5-15); BUN 13 mg/dL (7-18); BUN/Creat Ratio 18.9 RATIO (10-20); Calcium,Total 9.2 mg/dL (8.5-10.1); Chloride 106 mmol/L (98-107); Creatinine, Serum 0.69 mg/dL (0.55-1.02); EST Glomerular Filtration Rate 88 mL/min (>60); Est Glom Filt Rate - Afr Amer 107 mL/min (>60); Globulin 3.8 g/dL (2.2-4.2); Glucose 88 mg/dL (74-106); Phenytoin (Dilantin) Level 7.4 mL (10.0-20.0); Potassium 4.3 mmol/L (3.5-5.1); Sodium Level 139 mmol/L (136-145); Valproic Acid (Depakene) Level 116 ug/mL (50-100)
== END ==
LOC: OLS.ACH 05:00
PROVIDERS: PCP Internal Medicine; Visit Provider Internal Medicine
DX: G40.909 Epilepsy, unspecified, not intractable, without status epilepticus (principal); I11.0 Hypertensive heart disease with heart failure; I50.9 Heart failure, unspecified
CPT/HCPCS: 36415; 80053; 80164; 80185; 85025

== ENCOUNTER → 2023-11-05 | Outpatient (REF) | payer MEDICARE, OTHER, MEDICAID, SELFPAY ==
--- OUTSIDE RECORDS SUMMARY | 2023-11-05 04:44 | XMS RPT_ITS | CCD ---
Author Name Unknown Address [address] [place] [address] Organization [facility] Care Team Providers Care Improvement Leader Name Role Phone UNKNOWN, PROVIDER Referring Unavailable Orville Mendoza Primary Care Unavailable Tj Peguero Attending Unavailable Orville Mendoza Attending Unavailable UNKNOWN, PROVIDER Referring Unavailable Orville Mendoza Primary Care Unavailable Orville Mendoza Primary Care Provider [phone] Alek DE SANTIAGO.CD TECHNICIAN, Claudia Unavailable [phone] Medications Completed/Discontinued Medications Medication Drug Class(es) Dates [...] sources) H/O: high risk medication; 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: [Other terminal gauger (current) drug therapy] Onset: 08-07-2018 08-07-2018 Episodic [...] 06-15-2023 Influenza vaccination Influenza Vacc ine (#1) [facility] Start: 10-15-2022 Advance Directive Discussion Advance Directive Discussion [facility] Start: 10-15-2022 Depression Assessment Depression Ass essment [facility] Start: 08-07-2021 Diabetes Screening Diabetes Screenin g [facility] Start: 2012 Bone Density Screening Bone Density Screening [facility] Start: 2012 Pneumococcal Vaccine : 65+ (1 - PCV) Pneumococcal Vaccine: 65+ (1 - PCV) [facility] Start: 2007 RSV Vaccine (1 - 1-d ose 60+ series) RSV Vaccine (1 - 1-dose 60+ series) [facility] Start: 1997 Shingrix Vaccine (1 of 2) Shingrix V accine (1 of 2) [facility] Start: 1966 Urine microalbumin profile DTaP,Tdap,Td Vaccine (1 - Tdap) [facility] Start: 1965 Hepatitis C Screening Hepatitis C Sc leni [facility] Start: 01-07-1948 Covid-19 Vaccine (#1) Covid-19 Vacci ne (#1) [facility] Payers Date Payer Category Payer Private Health Insurance 2012 Medicare 1945 Unknown [id number] 1945 Unknown [id number] Social History Date Type Detail Facility [facility]: [facility]-07-[facility] Start: 08-07-2018 Tobacco use and exposure Smoke less tobacco non-user [facility] Start: 09-01-2019 End: 09-19-2020 History of Social function [facility] Start: 09-01-2019 End: 09-19-2020 Tobacco use panel [facility] Adult Depression Scr eening Assessment 0 [facility] Start: 1945 Sex Assigned At Not on file C [facility] Clinic Note 08-10-2023 Telephone Encounter - Jacki Paulino - 08/10/2023 2:31 PM EDT Note Date & Type Note Facility 08-10-2023 Miscellaneous Notes Formattin g of this note might be different from the original. Mireille from [facility] called to request medical records for [...] number to call and schedule the appointment. [phone] documented in this encounter [facility] Note 08-08-2023 Telephone Encounter - Duncan Nava [...] Roxi Servin LPN documented in this encounter [facility] Summary Purpose Family History No Family History [...] DATE CREATED AUTHOR AUTHOR'S ORGANIZ ATION 07/30/2019 [facility] DATE CREATED AUTHOR AUTHOR'S ORGANIZ ATION 03/04/2020 [facility] DATE CREATED AUTHOR AUTHOR'S ORGANIZ ATION 10/04/2022 [facility] DATE CREATED AUTHOR AUTHOR'S ORGANIZ ATION 08/15/2023 [facility] Source Comments (unrecognize d section and content) In the event this informatio n is protected by the Federal Confidentiality of Alcohol and Drug Abuse Patient Records regulations: The Federal rules restrict any use of the information to criminally investigate or prosecute any alcohol or drug abuse patient.[place] the event this information is protected by the Federal Confidentiality of Alcohol and Drug Abuse Patient Records regulations: The Federal rules restrict any use of the information to criminally investigate or prosecute any alcohol or drug abuse patient.[facility] Reason for Visit (unrecogniz ed section and content) Reason Comments Release Of Medical Records Care Teams (unrecognized sec tion and content) Improvement Leader Relationship Specialty Start Date End Date Orville Mendoza [address] [place] [address] PCP - General Family Medicine 08/07/18 Claudia Gaston APRN.CNP [address] [place] [address] Referring Neurosurgery 07/29/19 FOR RECORDS PERTAINING TO [...] BE BASED ON THE PRIMARY CLINICAL RECORDS. [employer] provides no warranty or guarantee of the accuracy or completeness of information in this document.
[2023-11-05 10:31] LABS: Valproic Acid (Depakene) Level 95 ug/mL (50-100)
== END ==
LOC: OLS.ACH 05:00
PROVIDERS: PCP Internal Medicine; Visit Provider Internal Medicine
DX: G40.909 Epilepsy, unspecified, not intractable, without status epilepticus (principal)
CPT/HCPCS: 36415; 80164

== ENCOUNTER → 2024-01-21 05:00 | Outpatient (REF) | payer MEDICARE, OTHER, MEDICAID, SELFPAY ==
[2024-01-21 09:15] LABS: Absolute Lymphocyte Count 2.04 X10^3/uL (0.83-4.51); Absolute Neutrophil Count 2.4 X10^3/uL (2.0-7.7); Basophil# 0.06 X10^3/uL; Basophil% 1.1 % (0-1); Eosinophil# 0.16 X10^3/uL; Hematocrit 35.6 % (37-47); Hemoglobin 11.4 g/dL (12.0-15.0); Lymphocyte # 2.04 X10^3/ul (0.83-4.51); Lymphocyte % 38.3 % (19-41); Mean Corpuscular Hgb 30.3 pg (27.0-32.0); Mean Corpuscular Volume 94.7 fL (81-99); Mean Platelet Vol. 11.4 fl (6.2-12.0); Monocyte% 13.1 % (0-10); NRBC Flagged by Analyzer 0 % (0-5); Neutrophil # 2.36 X10^3/uL (2.7-7.7); Neutrophil % 44.3 % (47-70); Platelet Count 190 K/mm3 (150-450); RBC Distribution Width SD 45.1 fl (35.1-43.9); Red Blood Count 3.76 M/mm3 (4.2-5.4); White Blood Count 5.3 K/mm3 (4.4-11.0)
[2024-01-21 09:30] LABS: ALB/GLOB Ratio 0.8 RATIO (0.9-2.4); AST(SGOT) 21 U/L (15-37); Alanine Aminotransfer ALT/SGPT 17 U/L (13-56); Alkaline Phosphatase 100 U/L (45-117); Anion Gap 5 (5-15); BUN 16 mg/dL (7-18); BUN/Creat Ratio 24.1 RATIO (10-20); Chloride 107 mmol/L (98-107); Creatinine, Serum 0.66 mg/dL (0.55-1.02); EST Glomerular Filtration Rate 92 mL/min (>60); Est Glom Filt Rate - Afr Amer 111 mL/min (>60); Globulin 3.7 g/dL (2.2-4.2); Glucose 90 mg/dL (74-106); Potassium 4.7 mmol/L (3.5-5.1); Protein, Total 6.7 g/dL (6.4-8.2); Sodium Level 140 mmol/L (136-145)
[2024-01-21 10:12] LABS: Valproic Acid (Depakene) Level 96 ug/mL (50-100)
== END ==
LOC: OLS.ACH 05:00
PROVIDERS: PCP Internal Medicine; Visit Provider Internal Medicine
DX: G40.909 Epilepsy, unspecified, not intractable, without status epilepticus (principal); I11.0 Hypertensive heart disease with heart failure
CPT/HCPCS: 36415; 80053; 80164; 80185; 85025

== ENCOUNTER → 2024-03-25 05:00 | Outpatient (REF) | payer MEDICARE, OTHER, MEDICAID, SELFPAY ==
[2024-03-25 09:54] LABS: Hematocrit 35.8 % (37-47); Hemoglobin 11.6 g/dL (12.0-15.0); Mean Corp Hgb Conc 32.4 g/dL (32-36); Mean Corpuscular Hgb 30.4 pg (27.0-32.0); Mean Platelet Vol. 12.1 fl (6.2-12.0); Platelet Count 186 K/mm3 (150-450); RBC Distribution Width CV 13.2 % (11.6-14.6); RBC Distribution Width SD 45.8 fl (35.1-43.9); Red Blood Count 3.81 M/mm3 (4.2-5.4); White Blood Count 6.3 K/mm3 (4.4-11.0)
[2024-03-25 10:01] LABS: Anion Gap 5 (5-15); BUN 20 mg/dL (7-18); BUN/Creat Ratio 27.9 RATIO (10-20); Calcium,Total 9.6 mg/dL (8.5-10.1); Chloride 109 mmol/L (98-107); Creatinine, Serum 0.72 mg/dL (0.55-1.02); EST Glomerular Filtration Rate 84 mL/min (>60); Est Glom Filt Rate - Afr Amer 102 mL/min (>60); Glucose 88 mg/dL (74-106); Potassium 4.2 mmol/L (3.5-5.1); Sodium Level 140 mmol/L (136-145)
== END ==
LOC: OLS.ACH 05:00
PROVIDERS: PCP Internal Medicine; Visit Provider Internal Medicine
DX: I11.0 Hypertensive heart disease with heart failure (principal); I50.9 Heart failure, unspecified
CPT/HCPCS: 36415; 80048; 85027

== ENCOUNTER → 2024-04-02 04:00 | Outpatient (REF) | payer MEDICARE, OTHER, MEDICAID, SELFPAY ==
[2024-04-02 09:49] LABS: Thyroid Stim Hormone (TSH) 2.63 uIU/mL (0.358-3.74)
== END ==
LOC: OLS.ACH 04:00
PROVIDERS: PCP Internal Medicine; Referring Provider Internal Medicine; Visit Provider Internal Medicine
DX: E03.9 Hypothyroidism, unspecified (principal)
CPT/HCPCS: 36415; 84443

== ENCOUNTER → 2024-04-14 04:00 | Outpatient (REF) | payer MEDICARE, OTHER, MEDICAID, SELFPAY ==
[2024-04-14 08:21] LABS: Basophil# 0.06 X10^3/uL; Basophil% 0.9 % (0-1); Eosinophil# 0.14 X10^3/uL; Eosinophils% 2.1 % (0-5); Hematocrit 34.2 % (37-47); Hemoglobin 11.1 g/dL (12.0-15.0); Lymphocyte % 39.2 % (19-41); Mean Corp Hgb Conc 32.5 g/dL (32-36); Mean Corpuscular Hgb 30.7 pg (27.0-32.0); Mean Corpuscular Volume 94.7 fL (81-99); Monocyte# 0.77 X10^3/uL; Monocyte% 11.6 % (0-10); NRBC Flagged by Analyzer 0 % (0-5); Neutrophil # 3.04 X10^3/uL (2.7-7.7); Neutrophil % 45.9 % (47-70); Platelet Count 178 K/mm3 (150-450); RBC Distribution Width CV 13.3 % (11.6-14.6); RBC Distribution Width SD 46.5 fl (35.1-43.9); Red Blood Count 3.61 M/mm3 (4.2-5.4); White Blood Count 6.6 K/mm3 (4.4-11.0)
[2024-04-14 08:33] LABS: Phenytoin (Dilantin) Level 6.6 mL (10.0-20.0); Valproic Acid (Depakene) Level 99 ug/mL (50-100)
[2024-04-14 08:46] LABS: ALB/GLOB Ratio 0.8 RATIO (0.9-2.4); AST(SGOT) 15 U/L (15-37); Alanine Aminotransfer ALT/SGPT 16 U/L (13-56); Albumin, Serum 3.1 g/dL (3.2-5.0); Alkaline Phosphatase 107 U/L (45-117); Anion Gap 4 (5-15); BUN 19 mg/dL (7-18); Calcium,Total 9.2 mg/dL (8.5-10.1); Chloride 108 mmol/L (98-107); EST Glomerular Filtration Rate 86 mL/min (>60); Est Glom Filt Rate - Afr Amer 104 mL/min (>60); Globulin 3.8 g/dL (2.2-4.2); Glucose 91 mg/dL (74-106); Potassium 5.2 mmol/L (3.5-5.1); Protein, Total 6.9 g/dL (6.4-8.2); Sodium Level 139 mmol/L (136-145)
== END ==
LOC: OLS.ACH 04:00
PROVIDERS: PCP Internal Medicine; Visit Provider Internal Medicine
DX: G40.909 Epilepsy, unspecified, not intractable, without status epilepticus (principal); I11.0 Hypertensive heart disease with heart failure; I50.9 Heart failure, unspecified
CPT/HCPCS: 36415; 80053; 80164; 80185; 85025

== ENCOUNTER → 2024-04-21 07:32 | Outpatient (REF) | payer MEDICARE, OTHER, MEDICAID, SELFPAY ==
[2024-04-21 10:01] LABS: Potassium 4.2 mmol/L (3.5-5.1)
== END ==
LOC: OLS.ACH 07:32
PROVIDERS: PCP Internal Medicine; Referring Provider Internal Medicine; Visit Provider Internal Medicine
DX: E87.6 Hypokalemia (principal)
CPT/HCPCS: 36415; 84132

== ENCOUNTER → 2024-07-07 05:00 | Outpatient (REF) | payer MEDICARE, OTHER, MEDICAID, SELFPAY ==
[2024-07-07 08:17] LABS: Absolute Neutrophil Count 3.5 X10^3/uL (2.0-7.7); Basophil# 0.08 X10^3/uL; Basophil% 1.1 % (0-1); Eosinophil# 0.13 X10^3/uL; Eosinophils% 1.8 % (0-5); Hematocrit 35.9 % (37-47); Hemoglobin 11.3 g/dL (12.0-15.0); Lymphocyte % 38.8 % (19-41); Mean Corp Hgb Conc 31.5 g/dL (32-36); Mean Corpuscular Hgb 29.7 pg (27.0-32.0); Mean Corpuscular Volume 94.2 fL (81-99); Monocyte# 0.69 X10^3/uL; Monocyte% 9.6 % (0-10); NRBC Flagged by Analyzer 0 % (0-5); Neutrophil % 48.4 % (47-70); Platelet Count 170 K/mm3 (150-450); RBC Distribution Width CV 13.4 % (11.6-14.6); RBC Distribution Width SD 46.4 fl (35.1-43.9); Red Blood Count 3.81 M/mm3 (4.2-5.4); White Blood Count 7.2 K/mm3 (4.4-11.0)
[2024-07-07 08:40] LABS: ALB/GLOB Ratio 0.8 RATIO (0.9-2.4); AST(SGOT) 19 U/L (15-37); Alanine Aminotransfer ALT/SGPT 17 U/L (13-56); Albumin, Serum 3.1 g/dL (3.2-5.0); Alkaline Phosphatase 105 U/L (45-117); Anion Gap 6 (5-15); BUN 19 mg/dL (7-18); Calcium,Total 9.3 mg/dL (8.5-10.1); Chloride 108 mmol/L (98-107); EST Glomerular Filtration Rate 86 mL/min (>60); Est Glom Filt Rate - Afr Amer 104 mL/min (>60); Globulin 3.8 g/dL (2.2-4.2); Glucose 91 mg/dL (74-106); Potassium 4.5 mmol/L (3.5-5.1); Protein, Total 6.9 g/dL (6.4-8.2); Sodium Level 141 mmol/L (136-145)
[2024-07-07 09:51] LABS: Phenytoin (Dilantin) Level 7.1 mL (10.0-20.0); Valproic Acid (Depakene) Level 103 ug/mL (50-100)
== END ==
LOC: OLS.ACH 05:00
PROVIDERS: PCP Internal Medicine; Visit Provider Internal Medicine
DX: I11.0 Hypertensive heart disease with heart failure (principal); I50.9 Heart failure, unspecified; G40.909 Epilepsy, unspecified, not intractable, without status epilepticus
CPT/HCPCS: 36415; 80053; 80164; 80185; 85025

== ENCOUNTER → 2024-08-06 | Outpatient (REF) | payer MEDICARE, OTHER, MEDICAID, SELFPAY ==
[2024-08-06 09:20] LABS: Valproic Acid (Depakene) Level 94 ug/mL (50-100)
== END ==
LOC: OLS.ACH 05:00
PROVIDERS: PCP Internal Medicine; Visit Provider Internal Medicine
DX: G40.909 Epilepsy, unspecified, not intractable, without status epilepticus (principal)
CPT/HCPCS: 36415; 80164

== ENCOUNTER → 2024-08-14 | Outpatient (REF) | payer MEDICARE, OTHER, MEDICAID, SELFPAY ==
[2024-08-14 08:32] LABS: Hematocrit 36.1 % (37-47); Hemoglobin 11.9 g/dL (12.0-15.0); Mean Corpuscular Hgb 30.4 pg (27.0-32.0); Mean Corpuscular Volume 92.3 fL (81-99); Mean Platelet Vol. 11.8 fl (6.2-12.0); Platelet Count 168 K/mm3 (150-450); RBC Distribution Width CV 13.7 % (11.6-14.6); RBC Distribution Width SD 46.5 fl (35.1-43.9); Red Blood Count 3.91 M/mm3 (4.2-5.4); White Blood Count 5.4 K/mm3 (4.4-11.0)
[2024-08-14 08:53] LABS: Anion Gap 6 (5-15); BUN 17 mg/dL (7-18); BUN/Creat Ratio 20.9 RATIO (10-20); Calcium,Total 9.1 mg/dL (8.5-10.1); Chloride 109 mmol/L (98-107); Creatinine, Serum 0.81 mg/dL (0.55-1.02); EST Glomerular Filtration Rate 73 mL/min (>60); Est Glom Filt Rate - Afr Amer 88 mL/min (>60); Glucose 93 mg/dL (74-106); Potassium 4.4 mmol/L (3.5-5.1); Sodium Level 140 mmol/L (136-145)
== END ==
LOC: OLS.ACH 05:00
PROVIDERS: PCP Internal Medicine; Visit Provider Internal Medicine
DX: J30.9 Allergic rhinitis, unspecified (principal); R09.89 Other specified symptoms and signs involving the circulatory and respiratory systems
CPT/HCPCS: 36415; 80048; 85027

== ENCOUNTER 2024-08-17 05:57 | Emergency (ER) | payer MEDICARE, OTHER, MEDICAID, SELFPAY ==
[2024-08-17] VITALS (17 sets, daily range): BP systolic 117–168; BP diastolic 65–100; PULSE 71–137; RESP 18–95; TEMP 36.6–36.8; O2SAT 85–100; BMI 33.5
--- NOTE | 2024-08-17 06:20 | RAD_ITS ---
EXAM: XR CHEST, 1 VIEW CLINICAL INDICATION: cough TECHNIQUE: Frontal view of the chest. COMPARISON: 09/18/2023. FINDINGS: LUNGS AND PLEURAL SPACES: Streaky opacities in the right upper lobe may be due to pneumonia or atelectasis. Very low lung volumes with an elevated right hemidiaphragm limit the exam. No pneumothorax. No effusion. HEART: Unremarkable. Cardiac silhouette not enlarged. MEDIASTINUM: Central airways and mediastinal contour are unremarkable. BONES/JOINTS: Unremarkable. No acute fracture. SOFT TISSUES: Unremarkable. RAD/Chest 1 View (Portable) IMPRESSION: 1. Streaky opacities in the right upper lobe may be due to pneumonia or atelectasis. 2. Very low lung volumes with an elevated right hemidiaphragm limit the exam. Electronically Signed: Rudy Gonzales MD at 7:49 EST ,
[2024-08-17 06:24] LABS: Absolute Lymphocyte Count 2.98 X10^3/uL (0.83-4.51); Absolute Neutrophil Count 4.1 X10^3/uL (2.0-7.7); Basophil# 0.07 X10^3/uL; Basophil% 0.9 % (0-1); Eosinophil# 0.06 X10^3/uL; Eosinophils% 0.7 % (0-5); Hematocrit 38.5 % (37-47); Hemoglobin 12.5 g/dL (12.0-15.0); Lymphocyte # 2.98 X10^3/ul (0.83-4.51); Lymphocyte % 37.2 % (19-41); Mean Corp Hgb Conc 32.5 g/dL (32-36); Mean Corpuscular Hgb 29.6 pg (27.0-32.0); Mean Platelet Vol. 11.1 fl (6.2-12.0); Monocyte# 0.76 X10^3/uL; Monocyte% 9.5 % (0-10); NRBC Flagged by Analyzer 0 % (0-5); Neutrophil # 4.09 X10^3/uL (2.7-7.7); Platelet Count 197 K/mm3 (150-450); RBC Distribution Width CV 13.6 % (11.6-14.6); RBC Distribution Width SD 45.6 fl (35.1-43.9); Red Blood Count 4.23 M/mm3 (4.2-5.4)
[2024-08-17 06:38] LABS: Bacteria 0 SEEN /hpf (None Seen); Mucous, Urine 0 SEEN /hpf (<or=2+); Red Blood Cells-Urine 0 SEEN /hpf (0-5); White Blood Cells 0 SEEN /hpf (0-5)
--- NOTE | 2024-08-17 06:48 | EX.ED.DYSGE1 ---
HPI History of Present Illness Chief Complaint: Seizure Informant: patient, EMS and SNF Narrative Narrative: Patient is a 79-year-old female with past medical history of epilepsy hypertension hypothyroidism and congestive heart failure. She states she has had a seizure disorder since the age of 6. Reportedly the patient had a witnessed seizure lasting 8 to 10 minutes at the retirement where she was unresponsive and foaming at the mouth. She states she does not remember any event other than the people at the retirement telling her this. She states she has been feeling fine otherwise and she has been taking her medications as directed as she has been getting them from the retirement staff. However based on the reported breakthrough seizure that occurred this morning she was sent in for further evaluation [facility] Medical History Dysphagia, oropharyngeal phase Generalized anxiety disorder Plantar fascial fibromatosis Primary osteoarthritis, right hand Primary osteoarthritis, right wrist Hypokalemia Other specified peripheral vascular diseases Cervicalgia Personal history of COVID-19 Degenerative disease of nervous system, unspecified Heart failure, unspecified Hypertensive heart disease with heart failure Changes in retinal vascular appearance, bilateral Dry eye syndrome of bilateral lacrimal glands Major depressive disorder, recurrent, unspecified Cognitive communication deficit Dysthymic disorder Other secondary cataract, left eye Insomnia, unspecified Age-related physical debility Weakness Other lack of coordination Unspecified abnormalities of gait and mobility Other optic atrophy, right eye Presbyopia Age-related osteoporosis without current pathological fracture Allergic rhinitis, unspecified Functional urinary incontinence Primary generalized (osteo)arthritis Unspecified intellectual disabilities Dysarthria and anarthria Other specified mental disorders due to known physiological condition Diaphragmatic hernia without obstruction or gangrene Gastro-esophageal reflux disease without esophagitis Hypothyroidism, unspecified Peptic ulcer, site unspecified, unspecified as acute or chronic, without hemorrhage or perforation Unspecified dementia, unspecified severity, with anxiety Epilepsy, unspecified, not intractable, without status epilepticus Home Medications ?Medication ?Instructions ?Recorded ?Last Taken ?Type acetaminophen 325 mg tablet 650 mg PO DAILY PAIN 09/18/23 Unknown History albuterol sulfate 90 mcg/actuation 2 inh inhalation Q4H PRN shortness 09/18/23 Unknown History aerosol inhaler of breath or wheezing cholecalciferol (vitamin D3) 50 50 mcg PO DAILY 09/18/23 Unknown History mcg (2,000 unit) tablet docusate sodium 100 mg capsule 100 mg PO DAILY PRN constipation 09/18/23 Unknown History escitalopram oxalate 20 mg tablet 20 mg PO DAILY 09/18/23 Unknown History ethosuximide 250 mg capsule 250 mg PO Q12H 09/18/23 Unknown History fluticasone propionate 44 2 puff inhalation Q12H 09/18/23 Unknown History mcg/actuation HFA aerosol inhaler (Flovent HFA) fluticasone propionate 50 2 spray intranasal DAILY 09/18/23 Unknown History mcg/actuation nasal spray,suspension furosemide 20 mg tablet 20 mg PO MOWEFR 09/18/23 Unknown History levothyroxine 50 mcg tablet 50 mcg PO DAILY 09/18/23 Unknown History losartan 25 mg tablet 25 mg PO DAILY 09/18/23 Unknown History melatonin 3 mg tablet 3 mg PO DAILY 09/18/23 Unknown History pantoprazole 40 mg tablet,delayed 40 mg PO DAILY 09/18/23 Unknown History release phenytoin sodium extended 100 mg 100 mg PO Q12H 09/18/23 Unknown History capsule potassium chloride 10 mEq 10 meq PO BID 09/18/23 Unknown History tablet,extended release valproic acid 250 mg capsule 750 mg PO Q8H 09/18/23 Unknown History doxycycline hyclate 100 mg tablet 100 mg PO BID 08/17/24 Unknown History ipratropium 0.5 mg-albuterol 3 mg 3 ml inhalation Q6H PRN shortness 08/17/24 Unknown History (2.5 mg base)/3 mL nebulization of breath or wheezing soln loratadine 10 mg tablet 10 mg PO DAILY 08/17/24 Unknown History prednisone 20 mg tablet 20 mg PO BID 08/17/24 Unknown History Allergy/AdvReac Type Severity Reaction Status Date / Time No Known Allergies Allergy Verified 08/17/24 05:58 Family History no significant family his Social History Smoking Status: Unknown if ever smoked ROS ROS ED Constitutional Constitutional ED: Denies chills or fever(s) Eyes Eyes: Denies blurry vision or change in vision ENT ENT ED: Denies rhinorrhea or sore throat Cardiovascular Cardiovascular: Denies chest pain Respiratory/Chest Respiratory/Chest: Reports cough; Denies dyspnea Gastrointestinal Gastrointestinal: Denies abdominal pain, diarrhea, nausea or vomiting Genitourinary Genitourinary ED: Denies dysuria Musculoskeletal Musculoskeletal: Denies myalgias Integumentary Denies rash Neurologic Neurologic: Denies headache(s) Hematologic/Lymphatic Hematologic/Lymphatic: Denies easy bleeding or easy bruising EXAM Physical Exam Const Vital Signs: 08/17/24 05:58 Temperature 98.2 F Temperature Source Oral Pulse Rate 93 Respiratory Rate 18 Blood Pressure 149/80 H Blood Pressure Mean 103 Pulse Ox 94 Oxygen Delivery Method Room Air Positive well nourished and well developed General Appearance ED: well developed; Negative for pallor HEENT HEENT Narrative: No obvious tongue or cheek biting to correlate to seizure activity No signs of infection noted in the posterior pharynx Eyes PERRL and EOMs intact bilaterally General Eye ED: Negative for scleral icterus Neck supple Neck Narrative: No nuchal rigidity or meningeal signs Chest Wall palpation of chest normal Resp normal respiratory effort Resp Narrative: Breath sounds are diminished throughout with faint expiratory wheeze consistent with history of asthma slightly worse on the right however no nasal flaring retractions tachypnea or accessory muscle use Cardio regular rate and regular rhythm Rate: other Other Details: Radial and carotid pulses are equal and symmetric GI normal to inspection, nondistended, normoactive bowel sounds, non-tender, non-distended and no masses GI Narrative: No voluntary guarding or rigidity or pulsatile mass Auscultation: normoactive bowel sounds Palpation: soft Extremity Extremity Narrative: Trace to +1 pitting edema to the bilateral lower extremities that is equal and symmetric and consistent with history of heart failure No signs of bony injury or infection and negative Homans' sign Neuro oriented x3, CN's II-XII intact bilaterally and no sensory deficits noted Sensorium / Orientation: alert Psych mental status grossly normal Skin no rashes or lesions noted and no wounds General Skin Exam: Negative for jaundice or pallor MDM MDM MDM Narrative Medical decision making narrative: Patient presented to the ER awake and alert with normal neurologic exam. She is afebrile but slightly hypertensive but has a past medical history of this. She has known seizure disorder and is on multiple medications to help control it. Therefore this time in order to check for potential underlying cause of her breakthrough seizures such as pneumonia versus UTI versus hyponatremia versus subtherapeutic medication level basic labs and a chest x-ray will be obtained. At this time the patient is awake and alert and at baseline mental status with stable vitals. Her labs revealed no signs of acute infection with a normal white count and no left shift there is no significant hyponatremia or acute kidney injury or severe electrolyte abnormality and her valproic acid level is at the upper limit of normal for therapeutic level. Therefore I feel that as the workup does not reveal any signs of systemic infection such as sepsis or acute kidney injury or severe electrolyte abnormality or that she has had recurrent seizure activity while in the ER she is otherwise safe to return to the retirement. History & Record Review Discussion w/independent historian: Patient Lab Data Attestation: I reviewed the patient's lab results. Labs: Laboratory Results - last 24 hr 08/17/24 06:05 WBC 8.0 RBC 4.23 Hgb 12.5 Hct 38.5 MCV 91.0 MCH 29.6 MCHC 32.5 RDW Std Deviation 45.6 H RDW Coeff of Holli 13.6 Plt Count 197 MPV 11.1 Immature Gran % (Auto) 0.700 Neut % (Auto) 51.0 Lymph % (Auto) 37.2 [place] % (Auto) 9.5 Eos % (Auto) 0.7 Baso % (Auto) 0.9 Absolute Neuts (auto) 4.1 Absolute Lymphs (auto) 2.98 Nucleated RBC % 0 Sodium 142 Potassium 4.1 Chloride 110 H Carbon Dioxide 25.0 Anion Gap 7 BUN 22 H Creatinine 0.75 Estim Creat Clear Calc 63.42 Est GFR (MDRD) Af Amer 97 Est GFR (MDRD) Non-Af 80 BUN/Creatinine Ratio 29.4 H Glucose 102 Calcium 8.8 Valproic Acid 101 H Radiography Diagnostic Testing: Chest x-ray as interpreted by the emergency medicine physician reveals elevation of the right hemidiaphragm without acute infiltrate pneumothorax or pleural effusion Discharge Plan Triage Chief Complaint: Seizure ED Provider: Ariel Yang Dx/Rx/DC Orders Clinical Impression: Breakthrough seizure, Hypertension, Hypothyroidism Instructions: Safety During a Seizure, Living Well with Epilepsy Prescriptions: No Action docusate sodium 100 mg capsule 100 mg PO DAILY PRN (Reason: constipation) acetaminophen 325 mg tablet 650 mg PO DAILY cholecalciferol (vitamin D3) 50 mcg (2,000 unit) tablet 50 mcg PO DAILY phenytoin sodium extended 100 mg capsule 100 mg PO Q12H fluticasone propionate 50 mcg/actuation spray,suspension 2 spray INTRANASAL DAILY fluticasone propionate [Flovent HFA] 44 mcg/actuation HFA aerosol inhaler 2 puff INHALATION Q12H potassium chloride 10 mEq tablet extended release 10 meq PO BID valproic acid 250 mg capsule 750 mg PO Q8H albuterol sulfate 90 mcg/actuation HFA aerosol inhaler 2 inh inhalation Q4H PRN (Reason: shortness of breath or wheezing) furosemide 20 mg tablet 20 mg PO MOWEFR levothyroxine 50 mcg tablet 50 mcg PO DAILY escitalopram oxalate 20 mg tablet 20 mg PO DAILY losartan 25 mg tablet 25 mg PO DAILY melatonin 3 mg tablet 3 mg PO DAILY pantoprazole 40 mg tablet,delayed release (DR/EC) 40 mg PO DAILY ethosuximide 250 mg capsule 250 mg PO Q12H ipratropium-albuterol 0.5 mg-3 mg(2.5 mg base)/3 mL solution for nebulization 3 ml inhalation Q6H PRN (Reason: shortness of breath or wheezing) prednisone 20 mg tablet 20 mg PO BID doxycycline hyclate 100 mg tablet 100 mg PO BID loratadine 10 mg tablet 10 mg PO DAILY Primary Care Provider: Todd Velasquez Referrals: Todd Velasquez MD [Primary Care Provider] - Print Language: Upper Sorbian Disposition Disposition: Home, Self Care
[2024-08-17 06:52] LABS: Valproic Acid (Depakene) Level 101 ug/mL (50-100)
[2024-08-17 06:53] LABS: Anion Gap 7 (5-15); BUN 22 mg/dL (7-18); BUN/Creat Ratio 29.4 RATIO (10-20); Calcium,Total 8.8 mg/dL (8.5-10.1); Chloride 110 mmol/L (98-107); Creatinine, Serum 0.75 mg/dL (0.55-1.02); EST Glomerular Filtration Rate 80 mL/min (>60); Est Glom Filt Rate - Afr Amer 97 mL/min (>60); Estimated Creatinine Clearance 63.42 ml/min; Glucose 102 mg/dL (74-106); Potassium 4.1 mmol/L (3.5-5.1); Sodium Level 142 mmol/L (136-145)
[2024-08-17 07:24] LABS: Color, Urine Yellow (Yellow); Glucose, Dipstick Normal (Normal); Ketone-Dipstick Negative (Negative); Leukocyte Esterase-Dipstick Negative /ul (Negative); Nitrite-Dipstick Negative (Negative); Occult Blood-Urine Negative /ul (Negative); Protein-Dipstick 30 mg/dl (Negative); Urine Bilirubin Dipstick Negative (Negative); Urine Clarity Clear (Clear); Urine Urobilinogen Normal (Normal)
[2024-08-17 07:39] LABS: Squamous Epithelial Cells - UA 0-5 SEEN /hpf (5-10)
--- NOTE | 2024-08-17 10:20 | CT_ITS ---
EXAM: CT HEAD WITHOUT INTRAVENOUS CONTRAST CLINICAL INDICATION: seizure TECHNIQUE: Multiple axial images were obtained of the head without intravenous contrast. This CT exam was performed using one or more of the following dose reduction techniques: automated exposure control, adjustment of the mA and/or kV according to patient size, and/or use of iterative reconstruction technique. COMPARISON: CT Head dated 09/18/2023 FINDINGS: BRAIN AND EXTRA-AXIAL SPACES: Motion artifacts degrade the overall quality of the exam. No hemorrhage or mass effect. No acute ischemia. Areas of diminished white matter density noted within both cerebral hemispheres suggestive of chronic microvascular change. Prominence of the cortical sulci and ventricles related to volume loss change. BONES/JOINTS: Normal calvarium. SINUSES: No acute sinusitis. MASTOID AIR CELLS: Normal. Clear. CT/Brain/Head without Contrast IMPRESSION: 1. No acute intracranial abnormality. 2. Stable senescent changes. Electronically Signed: Parag Servin MD at 12:08 EST ,
--- NOTE | 2024-08-17 10:34 | ED.RN ---
1020 pt started to seize. transporting squad at bedside. provider aware.
--- NOTE | 2024-08-17 10:42 | ED.RN ---
Pts brother was called to see what to do with the patient. Per brother, he chose [facility] due to it being a [facility] facility and DR Nava being [facility]. He also stated that she usually has seizures on and off for short periods of time, but the prolonged seizures are usual for her. Dr Tapia is aware
[2024-08-17] MEDS: LORazepam 2 MG/ML Syringe 1 MG IV ×2 (10:52)
--- NOTE | 2024-08-17 11:31 | ED.RN ---
pt has been thrashing around and grabbing since approx 1020.
--- NOTE | 2024-08-17 11:40 | ED.RN ---
pt has been resting with eyes closes, is not currently restless for approx 5 min
[2024-08-17] MEDS: levETIRAcetam IV 1,000 MG/100 ML BAG 400 MG IV (11:49)
--- NOTE | 2024-08-17 12:36 | ED.RN ---
Danny patients POA and brother updated on acceptance to [facility]. He would like us to call him when pt is transferred.
--- NOTE | 2024-08-17 16:23 | ED.RN ---
This RN spoke with pt. and margy on POC. Brother states that he would prefer her to be admitted here and that he does not think she needs to be transferred. this RN educated on why she could not be admitted here. Brother voices understanding but requests this RN tell Dr. banda his requests.
--- NOTE | 2024-08-17 18:36 | ED.RN ---
report given to Chela at [facility]
== END 2024-08-17 18:38 | disposition short-term general hospital (02) ==
PROVIDERS: Emergency Medicine; Emergency Provider Emergency Medicine; PCP Internal Medicine; Visit Provider Emergency Medicine
DX: G40.909 Epilepsy, unspecified, not intractable, without status epilepticus (principal); I11.0 Hypertensive heart disease with heart failure; I50.9 Heart failure, unspecified; E03.9 Hypothyroidism, unspecified; F33.9 Major depressive disorder, recurrent, unspecified; F41.1 Generalized anxiety disorder; K21.9 Gastro-esophageal reflux disease without esophagitis; M81.0 Age-related osteoporosis without current pathological fracture; M15.0 Primary generalized (osteo)arthritis; J45.909 Unspecified asthma, uncomplicated; Z66 Do not resuscitate; Z87.11 Personal history of peptic ulcer disease; Z79.899 Other long term (current) drug therapy; Z79.890 Hormone replacement therapy
CPT/HCPCS: 70450; 71045; 80048; 80164; 81001; 85025; 96374; 96375; 96376; 99285; P9612; A4216

== ENCOUNTER → 2024-08-27 | Outpatient (REF) | payer MEDICARE, OTHER, MEDICAID, SELFPAY ==
[2024-08-27 08:21] LABS: Hematocrit 36.7 % (37-47); Hemoglobin 11.7 g/dL (12.0-15.0); Mean Corp Hgb Conc 31.9 g/dL (32-36); Mean Corpuscular Hgb 29.7 pg (27.0-32.0); Mean Corpuscular Volume 93.1 fL (81-99); Mean Platelet Vol. 12.4 fl (6.2-12.0); Platelet Count 181 K/mm3 (150-450); RBC Distribution Width CV 13.7 % (11.6-14.6); RBC Distribution Width SD 46.8 fl (35.1-43.9); Red Blood Count 3.94 M/mm3 (4.2-5.4); White Blood Count 6.6 K/mm3 (4.4-11.0)
[2024-08-27 08:24] LABS: Anion Gap 5 (5-15); BUN 15 mg/dL (7-18); BUN/Creat Ratio 22.3 RATIO (10-20); Calcium,Total 8.8 mg/dL (8.5-10.1); Chloride 110 mmol/L (98-107); Creatinine, Serum 0.67 mg/dL (0.55-1.02); EST Glomerular Filtration Rate 90 mL/min (>60); Est Glom Filt Rate - Afr Amer 109 mL/min (>60); Glucose 88 mg/dL (74-106); Potassium 4.3 mmol/L (3.5-5.1); Sodium Level 142 mmol/L (136-145)
[2024-08-27 08:50] LABS: Phenytoin (Dilantin) Level 9.8 mL (10.0-20.0); Valproic Acid (Depakene) Level 104 ug/mL (50-100)
== END ==
LOC: OLS.ACH 04:00
PROVIDERS: PCP Internal Medicine; Referring Provider Internal Medicine; Visit Provider Internal Medicine
DX: G40.909 Epilepsy, unspecified, not intractable, without status epilepticus (principal); G93.41 Metabolic encephalopathy
CPT/HCPCS: 36415; 80048; 80164; 80185; 85027

== ENCOUNTER → 2024-09-05 | Outpatient (REF) | payer MEDICARE, OTHER, MEDICAID, SELFPAY ==
[2024-09-05 10:30] LABS: Phenytoin (Dilantin) Level 15.2 mL (10.0-20.0); Valproic Acid (Depakene) Level 120 ug/mL (50-100)
== END ==
LOC: OLS.ACH 05:00
PROVIDERS: PCP Internal Medicine; Visit Provider Internal Medicine
DX: G40.909 Epilepsy, unspecified, not intractable, without status epilepticus (principal)
CPT/HCPCS: 36415; 80164; 80185

== ENCOUNTER → 2024-11-14 05:00 | Outpatient (REF) | payer MEDICARE, OTHER, MEDICAID, SELFPAY ==
[2024-11-14 08:27] LABS: Phenytoin (Dilantin) Level 8.8 mL (10.0-20.0)
== END ==
LOC: OLS.ACH 05:00
PROVIDERS: PCP Internal Medicine; Visit Provider Internal Medicine
DX: G40.909 Epilepsy, unspecified, not intractable, without status epilepticus (principal)
CPT/HCPCS: 36415; 80185

== ENCOUNTER 2024-12-03 09:32 | Emergency (ER) | payer MEDICARE, OTHER, MEDICAID, SELFPAY ==
[2024-12-03] VITALS (11 sets, daily range): BP systolic 95–155; BP diastolic 61–75; PULSE 80–108; RESP 18–31; TEMP 36.8–37.1; O2SAT 87–98; BMI 34.0
--- NOTE | 2024-12-03 09:48 | EDS_ITS ---
HPI History of Present Illness Chief Complaint: Seizure Detail of Chief Complaint: 38-minute generalized tonic-clonic seizure Informant: EMS and SNF Limited: other (Postictal) Onset/Context/Timing Onset: Today Context: Sudden Onset Timing: Intermittent and Lasts (38 minutes) Quality: Generalized tonic-clonic Current Severity: Presently postictal Maximum Severity: Severe Worsened by: Unknown Relieved by: Received 2 doses of midazolam by EMS Associated Symptoms Associated Symptoms: Unable to determine Narrative Narrative: 9-year-old woman. She has history of hypothyroidism, GERD, seizure disorder, pulmonary disease who arrived by ambulance due to generalized tonic-clonic seizure. Because she had a seizure for 38 minutes she was transported to hospital for evaluation unknown when patient had last seizure. Review prior records to determine if she has been here before for seizures. 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 vascular appearance, bilateral Dry eye syndrome of bilateral lacrimal glands Major depressive disorder, recurrent, unspecified Cognitive communication deficit Dysthymic disorder Other secondary cataract, left eye Insomnia, unspecified Age-related physical debility Weakness Other lack of coordination Unspecified abnormalities of gait and mobility Other optic atrophy, right eye Presbyopia Age-related osteoporosis without current pathological fracture Allergic rhinitis, unspecified Functional urinary incontinence Primary generalized (osteo)arthritis Unspecified intellectual disabilities Dysarthria and anarthria Other specified mental disorders due to known physiological condition Diaphragmatic hernia without obstruction or gangrene Gastro-esophageal reflux disease without esophagitis Hypothyroidism, unspecified Peptic ulcer, site unspecified, unspecified as acute or chronic, without hemorrhage or perforation Unspecified dementia, unspecified severity, with anxiety Epilepsy, unspecified, not intractable, without status epilepticus Home Medications ?Medication ?Instructions ?Recorded ?Last Taken ?Type acetaminophen 325 mg tablet 650 mg PO DAILY PAIN 09/18 Unknown History albuterol sulfate 90 mcg/actuation 2 inh inhalation Q4 H PRN shortness 09/18/23 Unknown History aerosol inhaler of breath or wheezing cholecalciferol (vitamin D3) 50 50 mcg PO DAILY Unknown History mcg (2,000 unit) tablet docusate sodium 100 mg capsule 100 mg PO DAILY PRN con stipation 09/18/23 Unknown History escitalopram oxalate 20 mg tablet 20 mg PO DAILY 09/18 Unknown History ethosuximide 250 mg capsule 250 mg PO Q12H 09/18/23 Un known History furosemide 20 mg tablet 20 mg PO MOWEFR 09/18/23 Unk nown History levothyroxine 50 mcg tablet 50 mcg PO DAILY 09/18/23 U nknown History losartan 25 mg tablet 25 mg PO DAILY 09/18/23 Unkn own History melatonin 3 mg tablet 3 mg PO DAILY 09/18/23 Unkno wn History pantoprazole 40 mg tablet,delayed 40 mg PO DAILY 09/18 Unknown History release phenytoin sodium extended 100 mg 100 mg PO Q12H Unknown History capsule potassium chloride 10 mEq 10 meq PO DAILY 09/18/23 Unk nown History tablet,extended release valproic acid 250 mg capsule 500 mg PO Q8H 09/18/23 Un known History ipratropium 0.5 mg-albuterol 3 mg 3 ml inhalation Q6H PRN shortness 08/17/24 Unknown History (2.5 mg base)/3 mL nebulization of breath or wheezing soln lacosamide 100 mg tablet 100 mg PO QHS 12/03/24 Unkno wn History lacosamide 50 mg tablet 50 mg PO Q12H 12/03/24 Unkno wn History midazolam 5 mg/spray (0.1 mL) 1 spray intranasal PRN s eizure 12/03/24 Unknown History nasal spray (Nayzilam) Allergy/AdvReac Type Severity Reaction Status Date / Time No Known Allergies Allergy Verified 12/03/24 09:38 Social History Smoking Status: Never smoker ROS ROS ED Review of Systems ROS Unobtainable: due to mental status EXAM Physical Exam Const Vital Signs: 12/03/24 09:32 12/03/24 10:32 12/03/24 11:00 Temperature 98.8 F Temperature Source Oral Pulse Rate 108 H 103 H 102 H Respiratory Rate 27 H 24 H 21 H Blood Pressure 155/75 H 143/68 H 145/72 H Blood Pressure Mean 101 93 96 Pulse Ox 92 95 95 Oxygen Delivery Method Nasal Cannula Nasal Cannula Room Air Oxygen Flow Rate (L/min) 2 2 12/03/24 12:00 12/03/24 12:04 12/03/24 12:30 Temperature Temperature Source Pulse Rate 88 Respiratory Rate 18 Blood Pressure 127/68 H Blood Pressure Mean 87 Pulse Ox 87 96 90 Oxygen Delivery Method Room Air Nasal Cannula Nasal Cannula Oxygen Flow Rate (L/min) 2 2 12/03/24 12:34 12/03/24 13:00 12/03/24 14:00 Temperature 98.2 F Temperature Source Pulse Rate 101 H 82 Respiratory Rate 18 19 H Blood Pressure 121/64 H 127/61 H Blood Pressure Mean 83 83 Pulse Ox 93 95 98 Oxygen Delivery Method Nasal Cannula Nasal Cannula Oxygen Flow Rate (L/min) 4 4 Positive well nourished and well developed Constitutional Narrative: Albino-Hewitt type breathing General Appearance ED: well developed, NAD and pallor; Negative for cyanotic or diaphoretic HEENT Reports dry mucous membranes HEENT Narrative: Ears normal. Nares patent. Posterior pharynx normal. No deviation tongue with protrusion. Mouth ED: Yes dry mucous membranes Mouth: dry mucous membranes Eyes PERRL and EOMs intact bilaterally Eyes Narrative: Patient has mild exophthalmos is concerning for thyroid disease. General Eye ED: Negative for pale conjunctiva or scleral icterus Neck no lymphadenopathy, supple and no JVD Resp normal respiratory effort and clear to auscultation bilaterally Cardio regular rhythm, S1 normal heart sound, S2 normal heart sound and no murmurs Rate: tachycardic GI normal to inspection, nondistended, normoactive bowel sounds, non-tender, non- distended and no masses; Negative for hepatosplenomegaly Back/Spine no CVA tenderness Extremity normal to inspection General Extremety ED: Yes edema; Negative for tenderness General Extremity: edema Neuro No oriented x3, CN's II-XII intact bilaterally and no sensory deficits noted Sensorium / Orientation: Negative for alert Motor Exam: strength 5/5 throughout Psych Psych Narrative: Unable to determine since she is postictal. Patient is staring. There is no nystagmus. Skin no rashes or lesions noted and no wounds General Skin Exam: pallor; Negative for jaundice MDM MDM MDM Narrative Medical decision making narrative: Patient's blood pressure is elevated. She is tachycardic and tachypneic. Suspect her abnormal breathing is due to the fact she had a 38-minute long seizure. Since she is on phenytoin and valproic acid levels were ordered. BMP to assess CO2 anion gap as well as renal function. History & Record Review Additional record(s) reviewed:: Prior ED visit (Patient was seen August 2024 for seizure and had a seizure drive back to the nursing facility necessitating return to the emergency department. She was discharged ultimately to the ED nursing facility. She was seen September 2023 for breakthrough seizure.) and Prior labs Lab Data Attestation: I reviewed the patient's lab results. Lab results narrative: Electrolyte panel is unremarkable. Potassium is slightly below normal at 3.3. Chloride is elevated at 114. Glucose is elevated 141 with a normal CO2 anion gap. Phenytoin level was subtherapeutic at 2.6. 1500 mg of phenytoin was ordered to be administered IV piggyback. Valproic acid was also subtherapeutic. 500 mg of valproic acid was ordered to be administered IV piggyback as well. White count is elevated. This could be due to the seizure. The lactate is elevated and probably result of the seizure and not sepsis. Labs: Laboratory Results - last 24 hr 12/03/24 12/03/24 09:50 12:24 WBC 13.8 H RBC 4.09 L Hgb 11.9 L Hct 36.5 L MCV 89.2 MCH 29.1 MCHC 32.6 RDW Std Deviation 43.0 RDW Coeff of Holli 13.2 Plt Count 199 MPV 11.9 Immature Gran % (Auto) 0.400 Neut % (Auto) 89.7 H Lymph % (Auto) 4.8 L [place] % (Auto) 4.8 Eos % (Auto) 0.0 Baso % (Auto) 0.3 Absolute Neuts (auto) 12.4 H Absolute Lymphs (auto) 0.66 L Nucleated RBC % 0 Sodium 143 Potassium 3.3 L Chloride 114 H Carbon Dioxide 21.0 Anion Gap 8 BUN 19 H Creatinine 0.64 Estim Creat Clear Calc 63.94 Est GFR (MDRD) Af Amer 116 Est GFR (MDRD) Non-Af 96 BUN/Creatinine Ratio 29.9 H Glucose 141 H Lactic Acid 4.7 H* Calcium 7.4 L Phenytoin 2.6 L Valproic Acid 47 L Basic metabolic panel reveals mild hypokalemia and hyperchloremia. Lactate is 4.7. Suspect this is due to the fact the patient had a seizure. I do not believe this is due to sepsis. Radiography Chest X-Ray - ED: 1 View and Read by ED Physician (Right hemidiaphragm is elevated. Limited inspiratory volume. No obvious infiltrate. There is no effusion. Cardiac silhouette size normal.) Diagnostic Testing: Clinical Impression(s) from Imaging Studies Chest X-Ray 12/03/24 12:07 IMPRESSION: Mild degree of vascular congestion. Elevation of the right hemidiaphragm. Reading Location: [facility] Management Discussion w/another healthcare provider: Hospitalist ([place] was asked to sarah hospitalist at 13[address] Sarah Mathews. One of the anticonvulsants apparently we do not have on formulary. She is checking with pharmacy if it is available. Dr. Mathews contacted nursing facility. They have been titrating her anticonvulsant meds. ) and Other (Patient was excepted at [facility]. To facilitate rapid transfer, transfer will be ER to ER.) Treatment and Re-Evaluation :: I was informed at 1208 the patient's pulse ox was 87%. Suspect patient may have aspirated. In light of this CBC with differential, lactate and chest x-ray was ordered. If there is evidence of a infiltrate will treat with antibiotics otherwise presumption is this is a chemical pneumonitis and literature would support good pulmonary toilet and holding antibiotics unless she developed clinical findings and symptoms of pneumonia. Comments:: When patient was reassessed at 1221 she is actively vomiting. This raises greater concern that she aspirated as a cause of her acute hypoxia. Once laboratory results return we will call hospitalist for admission. Will discuss if they would like antibiotics started or not. In my opinion this is a chemical pneumonitis and literature would support not giving antibiotics. Discharge Plan Triage Chief Complaint: Seizure ED Provider: Damir Escamilla Dx/Rx/DC Orders Clinical Impression: Acute aspiration pneumonitis, Acute hypoxemic respiratory failure, Acidosis, lactic, Seizure secondary to subtherapeutic anticonvulsant medication, Generalized tonic-clonic seizure, Sinus tachycardia seen on rn cardiac, Chronic anemia Prescriptions: No Action docusate sodium 100 mg capsule 100 mg PO DAILY PRN (Reason: constipation) acetaminophen 325 mg tablet 650 mg PO DAILY cholecalciferol (vitamin D3) 50 mcg (2,000 unit) tablet 50 mcg PO DAILY phenytoin sodium extended 100 mg capsule 100 mg PO Q12H Patient Comments: Also giving another 100 mg tablet at bedtime for 7 days potassium chloride 10 mEq tablet extended release 10 meq PO DAILY valproic acid 250 mg capsule 500 mg PO Q8H albuterol sulfate 90 mcg/actuation HFA aerosol inhaler 2 inh inhalation Q4H PRN (Reason: shortness of breath or wheezing) furosemide 20 mg tablet 20 mg PO MOWEFR levothyroxine 50 mcg tablet 50 mcg PO DAILY escitalopram oxalate 20 mg tablet 20 mg PO DAILY losartan 25 mg tablet 25 mg PO DAILY melatonin 3 mg tablet 3 mg PO DAILY pantoprazole 40 mg tablet,delayed release (DR/EC) 40 mg PO DAILY ethosuximide 250 mg capsule 250 mg PO Q12H lacosamide 50 mg tablet 50 mg PO Q12H Patient Comments: [NO ORIGINAL SIG] lacosamide 100 mg tablet 100 mg PO QHS Patient Comments: [NO ORIGINAL SIG] Nayzilam 5 mg/spray (0.1 mL) spray,non-aerosol 1 spray INTRANASAL PRN Patient Comments: [NO ORIGINAL SIG] ipratropium-albuterol 0.5 mg-3 mg(2.5 mg base)/3 mL solution for nebulization 3 ml inhalation Q6H PRN (Reason: shortness of breath or wheezing) Primary Care Provider: Todd Velasquez Sr. Referrals: Todd Velasquez MD [[facility]] - Print Language: Citizen Of [place] Disposition Disposition: Acute Care Hospital Discharge Location: [facility]
[2024-12-03 10:28] LABS: Anion Gap 8 (5-15); BUN 19 mg/dL (7-18); BUN/Creat Ratio 29.9 RATIO (10-20); Calcium,Total 7.4 mg/dL (8.5-10.1); Chloride 114 mmol/L (98-107); Creatinine, Serum 0.64 mg/dL (0.55-1.02); EST Glomerular Filtration Rate 96 mL/min (>60); Est Glom Filt Rate - Afr Amer 116 mL/min (>60); Estimated Creatinine Clearance 63.94 ml/min; Glucose 141 mg/dL (74-106); Potassium 3.3 mmol/L (3.5-5.1); Sodium Level 143 mmol/L (136-145)
[2024-12-03 10:31] LABS: Phenytoin (Dilantin) Level 2.6 mL (10.0-20.0); Valproic Acid (Depakene) Level 47 ug/mL (50-100)
[2024-12-03] MEDS: Valproate Sodium 500 MG in Dextrose 5%-Water (50mL Bag) 50 ML 50 MG IV (11:33)
--- NOTE | 2024-12-03 12:07 | RAD_ITS ---
PROCEDURE: CHEST 1 VIEW (PORTABLE) REASON FOR EXAM: 38 minutes seizure. TECHNIQUE: Frontal view of the chest. COMPARISON: Comparison is made with prior study dated August 17, 2024. FINDINGS: EKG electrodes are seen. Stable elevation of the right hemidiaphragm. The heart size is normal. Mild degree of vascular congestion. RAD/Chest 1 View (Portable) IMPRESSION: Mild degree of vascular congestion. Elevation of the right hemidiaphragm. Reading Location: [facility]
[2024-12-03] MEDS: Ondansetron 4 MG/2 ML Vial IV (12:28)
[2024-12-03] MEDS: PHENYTOIN NA IV (12:29)
[2024-12-03] MEDS: NORMAL SALINE 0.9% IV (12:29)
[2024-12-03 12:37] LABS: Absolute Lymphocyte Count 0.66 X10^3/uL (0.83-4.51); Absolute Neutrophil Count 12.4 X10^3/uL (2.0-7.7); Basophil# 0.04 X10^3/uL; Basophil% 0.3 % (0-1); Hematocrit 36.5 % (37-47); Hemoglobin 11.9 g/dL (12.0-15.0); Lymphocyte # 0.66 X10^3/ul (0.83-4.51); Lymphocyte % 4.8 % (19-41); Mean Corp Hgb Conc 32.6 g/dL (32-36); Mean Corpuscular Hgb 29.1 pg (27.0-32.0); Mean Corpuscular Volume 89.2 fL (81-99); Mean Platelet Vol. 11.9 fl (6.2-12.0); Monocyte# 0.67 X10^3/uL; Monocyte% 4.8 % (0-10); NRBC Flagged by Analyzer 0 % (0-5); Neutrophil # 12.41 X10^3/uL (2.7-7.7); Neutrophil % 89.7 % (47-70); POSITIVE COUNT YES; Platelet Count 199 K/mm3 (150-450); RBC Distribution Width CV 13.2 % (11.6-14.6); Red Blood Count 4.09 M/mm3 (4.2-5.4); White Blood Count 13.8 K/mm3 (4.4-11.0)
[2024-12-03 13:03] LABS: Lactic Acid 4.7 mmol/L (0.4-1.9)
--- NOTE | 2024-12-03 16:21 | ED.RN ---
Addendum entered by Jody Zuñiga 12/03/24 16:53: CORRECTION, REPORT WAS ATTEMPTED AT [facility] Original Note: ATTEMPTED TO CALL REPORT TO [facility] W/ NO ANSWER
[2024-12-03 16:29] LABS: Reflex Lactate? Y
--- NOTE | 2024-12-03 16:51 | ED.RN ---
ATTEMPTED TO CALL REPORT TO [facility] ER W/ NO ANSWER AT THIS TIME. NO ANSWER.
--- NOTE | 2024-12-03 17:12 | ED.RN ---
i CALLED [facility] FOR [facility]SPORT AT 1507 AND THEY SAID THEY COULD NOT TRANSPORT THEY ANY PATIENTS TO [facility] AT THIS TIME PER THEIR DISPATCH. I PUT THE LADY I WAS TALKING TO ON HOLD, AND GOT THE CHARGE NURSE, VICENTE. AFTER VICENTE SPOKE WITH THEM, SHE GOT PA TO GIVE US AN ETA OF 45 MINS.
[2024-12-03 17:36] LABS: Lactic Acid 2.8 mmol/L (0.4-1.9)
== END 2024-12-03 17:00 | disposition short-term general hospital (02) ==
PROVIDERS: Emergency Provider Emergency Medicine; PCP Internal Medicine; Visit Provider Emergency Medicine
DX: J69.0 Pneumonitis due to inhalation of food and vomit (principal); J96.01 Acute respiratory failure with hypoxia; G40.409 Other generalized epilepsy and epileptic syndromes, not intractable, without status epilepticus; G40.89 Other seizures; T42.75XA Adverse effect of unspecified antiepileptic and sedative-hypnotic drugs, initial encounter; E87.20 Acidosis, unspecified; R00.0 Tachycardia, unspecified; D64.9 Anemia, unspecified; K21.9 Gastro-esophageal reflux disease without esophagitis; E03.9 Hypothyroidism, unspecified; F41.1 Generalized anxiety disorder; F33.9 Major depressive disorder, recurrent, unspecified; E87.8 Other disorders of electrolyte and fluid balance, not elsewhere classified; E87.6 Hypokalemia; Z79.899 Other long term (current) drug therapy; Z79.890 Hormone replacement therapy
CPT/HCPCS: 71045; 80048; 80164; 80185; 83605; 85025; 96365; 96367; 96375; 99285; A4216; J2405

== ENCOUNTER → 2024-12-15 | Outpatient (REF) | payer MEDICARE, OTHER, MEDICAID, SELFPAY ==
[2024-12-15 09:18] LABS: Hematocrit 31.6 % (37-47); Hemoglobin 9.8 g/dL (12.0-15.0); Mean Corpuscular Hgb 28.2 pg (27.0-32.0); Mean Corpuscular Volume 91.1 fL (81-99); Mean Platelet Vol. 12.7 fl (6.2-12.0); Platelet Count 194 K/mm3 (150-450); RBC Distribution Width CV 13.6 % (11.6-14.6); RBC Distribution Width SD 45.2 fl (35.1-43.9); Red Blood Count 3.47 M/mm3 (4.2-5.4); White Blood Count 7.1 K/mm3 (4.4-11.0)
[2024-12-15 11:32] LABS: Valproic Acid (Depakene) Level 40 ug/mL (50-100)
[2024-12-15 11:40] LABS: ALB/GLOB Ratio 1.3 RATIO (0.9-2.4); AST(SGOT) 28 U/L (<=31); Alanine Aminotransfer ALT/SGPT 16 U/L (<=34); Albumin, Serum 3.8 g/dL (3.4-4.8); Alkaline Phosphatase 121 U/L (35-104); Anion Gap 9 (5-15); BUN 11 mg/dL (4-19); BUN/Creat Ratio 17.8 RATIO (10-20); Calcium 9.1 mg/dL (7.6-11.0); Carbon Dioxide 23.3 mmol/L (22.0-29.0); Chloride 105 mmol/L (96-108); Creatinine, Serum 0.61 mg/dL (0.70-1.20); EST Glomerular Filtration Rate 92 (>60); Glucose 90 mg/dL (70-99); Potassium 4.8 mmol/L (3.3-5.1); Protein, Total 6.8 g/dL (5.9-8.4); Sodium Level 137 mmol/L (133-145); Total Bilirubin 0.24 mg/dL (0.00-1.30)
== END ==
LOC: OLS.ACH 05:00
PROVIDERS: PCP Internal Medicine; Visit Provider Internal Medicine
DX: G93.41 Metabolic encephalopathy (principal); G40.909 Epilepsy, unspecified, not intractable, without status epilepticus; K27.9 Peptic ulcer, site unspecified, unspecified as acute or chronic, without hemorrhage or perforation; E03.9 Hypothyroidism, unspecified
CPT/HCPCS: 36415; 80053; 80164; 84443; 85027

== ENCOUNTER → 2024-12-26 | Outpatient (REF) | payer MEDICARE, OTHER, MEDICAID, SELFPAY ==
[2024-12-26 10:26] LABS: Valproic Acid (Depakene) Level 91 ug/mL (50-100)
== END ==
LOC: OLS.ACH 05:00
PROVIDERS: PCP Internal Medicine; Visit Provider Internal Medicine
DX: G40.909 Epilepsy, unspecified, not intractable, without status epilepticus (principal)
CPT/HCPCS: 36415; 80164

== ENCOUNTER → 2025-01-19 | Outpatient (REF) | payer MEDICARE, OTHER, MEDICAID, SELFPAY ==
[2025-01-19 10:09] LABS: Hematocrit 33.3 % (37-47); Hemoglobin 10.8 g/dL (12.0-15.0); Mean Corp Hgb Conc 32.4 g/dL (32-36); Mean Corpuscular Hgb 28.3 pg (27.0-32.0); Mean Corpuscular Volume 87.4 fL (81-99); Mean Platelet Vol. 12.3 fl (6.2-12.0); Platelet Count 193 K/mm3 (150-450); RBC Distribution Width CV 14.1 % (11.6-14.6); RBC Distribution Width SD 45.1 fl (35.1-43.9); Red Blood Count 3.81 M/mm3 (4.2-5.4); White Blood Count 6.3 K/mm3 (4.4-11.0)
[2025-01-19 10:11] LABS: Anion Gap 12 (5-15); BUN 14 mg/dL (4-19); BUN/Creat Ratio 20.6 RATIO (10-20); Calcium,Total 9.1 mg/dL (7.6-11.0); Carbon Dioxide 20.1 mmol/L (21.0-32.0); Chloride 104 mmol/L (98-108); Creatinine, Serum 0.69 mg/dL (0.70-1.20); EST Glomerular Filtration Rate 89 (>60); Glucose 94 mg/dL (70-99); Potassium 4.2 mmol/L (3.3-5.1); Sodium Level 136 mmol/L (133-145)
== END ==
LOC: OLS.ACH 05:00
PROVIDERS: PCP Internal Medicine; Visit Provider Internal Medicine
DX: R35.1 Nocturia (principal); I11.0 Hypertensive heart disease with heart failure; I50.9 Heart failure, unspecified
CPT/HCPCS: 36415; 80048; 85027

== ENCOUNTER → 2025-01-28 | Outpatient (REF) | payer MEDICARE, OTHER, MEDICAID, SELFPAY | LOC: OLS.ACH 05:00 | PROVIDERS: PCP Internal Medicine; Visit Provider Internal Medicine | DX: E03.9 Hypothyroidism, unspecified (principal) | CPT/HCPCS: 36415; 84443 ==

== ENCOUNTER → 2025-02-02 | Outpatient (REF) | payer MEDICARE, OTHER, MEDICAID, SELFPAY ==
[2025-02-02 10:09] LABS: Anion Gap 11 (5-15); BUN 13 mg/dL (4-19); BUN/Creat Ratio 20.1 RATIO (10-20); Calcium,Total 8.9 mg/dL (7.6-11.0); Carbon Dioxide 21.8 mmol/L (21.0-32.0); Chloride 105 mmol/L (98-108); Creatinine, Serum 0.65 mg/dL (0.70-1.20); EST Glomerular Filtration Rate 91 (>60); Glucose 85 mg/dL (70-99); Potassium 4.2 mmol/L (3.3-5.1); Sodium Level 138 mmol/L (133-145)
== END ==
LOC: OLS.ACH 05:00
PROVIDERS: PCP Internal Medicine; Visit Provider Internal Medicine
DX: E03.0 Congenital hypothyroidism with diffuse goiter (principal); E87.6 Hypokalemia
CPT/HCPCS: 36415; 80048

== ENCOUNTER → 2025-02-27 05:00 | Outpatient (REF) | payer MEDICARE, OTHER, MEDICAID, SELFPAY ==
[2025-02-27 08:32] LABS: Ionized Calcium Order ORDER TUBE
[2025-02-27 08:49] LABS: Ionized Calcium 1.27 mmol/L (1.09-1.30)
[2025-02-27 08:53] LABS: PTHIN 68 pg/mL (11-61)
[2025-02-27 09:14] LABS: Anion Gap 10 (5-15); BUN 22 mg/dL (4-19); BUN/Creat Ratio 30.7 RATIO (10-20); Calcium,Total 9.5 mg/dL (7.6-11.0); Carbon Dioxide 21.8 mmol/L (21.0-32.0); Chloride 106 mmol/L (98-108); Creatinine, Serum 0.72 mg/dL (0.70-1.20); EST Glomerular Filtration Rate 86 (>60); Glucose 92 mg/dL (70-99); Magnesium 2.2 mg/dL (1.5-2.2); Phosphorus 3.7 mg/dL (2.7-4.5); Potassium 4.7 mmol/L (3.3-5.1); Sodium Level 138 mmol/L (133-145); Vitamin D,25 Hydroxy 46.9 ng/mL (30-100)
[2025-03-02 15:07] LABS: PROEL- A/G Ratio 0.9 (0.7-1.7); PROEL- Albumin 3.2 g/dL (2.9-4.4); PROEL- Alpha-1 Globulin 0.2 g/dL (0.0-0.4); PROEL- Alpha-2 Globulin 0.8 g/dL (0.4-1.0); PROEL- Beta Globulin 1.2 g/dL (0.7-1.3); PROEL- Gamma Globulin 1.3 g/dL (0.4-1.8); PROEL- Globulin, Total 3.5 g/dL (2.2-3.9); PROEL- TOTAL PROTEIN 6.7 g/dL (6.0-8.5); PROEL-M-Spike Not Observed g/dL (Not Observed)
== END ==
LOC: OLS.ACH 05:00
PROVIDERS: PCP Internal Medicine; Visit Provider Internal Medicine
DX: M81.0 Age-related osteoporosis without current pathological fracture (principal); E03.9 Hypothyroidism, unspecified
CPT/HCPCS: 36415; 80048; 82306; 82330; 83735; 83970; 84100; 84165

== ENCOUNTER → 2025-03-04 05:00 | Outpatient (REF) | payer MEDICARE, OTHER, MEDICAID, SELFPAY ==
[2025-03-04 07:51] LABS: Hematocrit 30.2 % (37-47); Hemoglobin 9.6 g/dL (12.0-15.0); Mean Corp Hgb Conc 31.8 g/dL (32-36); Mean Corpuscular Hgb 28.2 pg (27.0-32.0); Mean Corpuscular Volume 88.6 fL (81-99); Mean Platelet Vol. 12.1 fl (6.2-12.0); Platelet Count 186 K/mm3 (150-450); RBC Distribution Width CV 14.5 % (11.6-14.6); RBC Distribution Width SD 46.7 fl (35.1-43.9); Red Blood Count 3.41 M/mm3 (4.2-5.4); White Blood Count 7.4 K/mm3 (4.4-11.0)
[2025-03-04 08:15] LABS: ALB/GLOB Ratio 1.2 RATIO (0.9-2.4); AST(SGOT) 22 U/L (<=31); Alanine Aminotransfer ALT/SGPT 6 U/L (<=34); Albumin, Serum 3.7 g/dL (3.4-4.8); Alkaline Phosphatase 84 U/L (35-104); Anion Gap 9 (5-15); BUN 17 mg/dL (4-19); BUN/Creat Ratio 22.8 RATIO (10-20); Calcium,Total 9.1 mg/dL (7.6-11.0); Chloride 107 mmol/L (98-108); Creatinine, Serum 0.74 mg/dL (0.70-1.20); EST Glomerular Filtration Rate 83 (>60); Globulin 3.1 g/dL (2.2-4.2); Glucose 93 mg/dL (70-99); Potassium 4.9 mmol/L (3.3-5.1); Protein, Total 6.7 g/dL (5.9-8.4); Sodium Level 140 mmol/L (133-145); Total Bilirubin 0.21 mg/dL (0.00-1.30)
== END ==
LOC: OLS.ACH 05:00
PROVIDERS: PCP Internal Medicine; Visit Provider Internal Medicine
DX: G40.909 Epilepsy, unspecified, not intractable, without status epilepticus (principal)
CPT/HCPCS: 36415; 80053; 85027

== ENCOUNTER → 2025-03-10 | Outpatient (REF) | payer MEDICARE, OTHER, MEDICAID, SELFPAY ==
[2025-03-10 09:18] LABS: Valproic Acid (Depakene) Level 91 ug/mL (50-100)
== END ==
LOC: OLS.ACH 05:00
PROVIDERS: PCP Internal Medicine; Visit Provider Internal Medicine
DX: G40.909 Epilepsy, unspecified, not intractable, without status epilepticus (principal)
CPT/HCPCS: 36415; 80164

== ENCOUNTER → 2025-04-06 05:00 | Outpatient (REF) | payer MEDICARE, OTHER, MEDICAID, SELFPAY ==
--- OUTSIDE RECORDS SUMMARY | 2025-04-06 04:07 | XMS RPT_ITS | CCD ---
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 Reich Attending Provider [phone] Damir Mckee MD Emergency Provider Dr. Todd Velasquez Sr., DO Primary Care Provider Ron SESAY, Todd Primary Care Provider Unavailab gael Velasquez MD, Todd Attending Provider Unavailable [facility] Primary Care Unavail able JAYANT JIMENEZ Attending [facility]ailabl e [facility] Unavail able JAYANT JIMENEZ Referring Unavailabl e [facility] Primary Care Unavail able JAYANT JIMENEZ Attending UnavailTAO Lynch Admitting Unavailable HAYES NICHOLSON Referring Unavailable [facility] Primary Care Unavail able JUAN JOSE HENDERSON Attending Unavailable ITRAT, AHMED Consulting Unavailable Ron SESAY, Todd Primary Care Provider Unavailab gael Velasquez MD, Todd Attending Provider Unavailable LOLITA JAIN Attending Unavailable JAYANT JIMENEZ Referring Unavailabl [place] David Primary Care Unavail able Deperro OLS, Todd Attending Unavailable Deperro OLS, Todd Referring Unavailable Deperro OLS, Todd Primary Care Unavailable Deperro OLS, Todd Attending Unavailable Deperro OLS, Todd Primary Care Unavailable Deperro OLS, Todd Attending Unavailable Deperro OLS, Todd Primary Care Unavailable Deperro OLS, Todd Attending Unavailable Deperro Sr., Todd Primary Care Unavailable Deperro OLS, Todd Attending Unavailable Deperro OLS, Todd Primary Care Unavailable Deperro Sr., Todd Primary Care Unavailable Deperro OLS, Todd Attending Unavailable Deperro OLS, Todd Primary Care Unavailable [facility], [facility] Attending Unavasandy lable Deperro Sr., Todd Primary Care Unavailable Deperro OLS, Todd Attending Unavailable Deperro OLS, Todd Attending Unavailable Deperro OLS, Todd Primary Care Unavailable Deperro Sr., Todd Primary Care Unavailable Deperro OLS, Todd Attending Unavailable Deperro OLS, Todd Attending Unavailable Deperro OLS, Todd Primary Care Unavailable Deperro OLS, Todd Attending Unavailable Deperro OLS, Todd Primary Care Unavailable Deperro OLS, Todd Attending Unavailable Deperro OLS, Todd Referring Unavailable Deperro OLS, Todd Primary Care Unavailable Deperro OLS, Todd Attending Unavailable Deperro OLS, Todd Primary Care Unavailable Deperro OLS, Todd Attending Unavailable Deperro OLS, Todd Primary Care Unavailable Deperro OLS, Todd Attending Unavailable Deperro Sr., Todd Primary Care Unavailable Deperro OLS, Todd Attending Unavailable Deperro OLS, Todd Primary Care Unavailable Deperro Sr., Todd Primary Care Unavailable Deperro OLS, Todd Attending Unavailable Deperro OLS, Todd Attending Unavailable Deperro Sr., Todd Primary Care Unavailable Deperro Sr., Todd Primary Care Unavailable Deperro OLS, Todd Attending Unavailable Deperro OLS, Todd Attending Unavailable Deperro Sr., Todd Primary Care Unavailable Deperro OLS, Todd Attending Unavailable Deperro OLS, Todd Referring Unavailable Deperro OLS, Todd Primary Care Unavailable Damir Mckee Attending Unavailable Deperro SrAnoop, Todd Primary Care Unavailable Hayes Nicholson Attending Unavailable Deperro OLS, Todd Primary Care Unavailable Deperro OLS, Todd Primary Care Unavailable Deperro OLS, Todd Attending Unavailable Deperro OLS, Todd Primary Care Unavailable Deperro OLS, Todd Attending Unavailable Medications Current Medications Medication Drug Class(es) Dates Sig (Normalized) Sig (Original) albuterol 0.833 mg/ml / ipratropium bromide 0.167 mg/ml inhalation solution (5 sources) Anticholinergic, beta2-Adrenergic Agonist Start: 08-17-2024 take 1 mL by inhalation every six hours as needed for wheezing Ipratropium-Albuter ol 0.5 mg-3 mg(2.5 mg base)/3 mL solution for nebulization Active 3 mL INHALATION EVERY 6 HOURS as needed for shortness of breath or wheezing August 17, 2024 12:00am aluminum hydroxide 50.8 mg/ml / magnesium carbonate 47.5 mg/ml oral suspension (20 sources) Aluminum Hydrox-Magnesium Carb (GAVISCON EXTRA STRENGTH) 254-237.5 mg/5 mL susp Take by mouth. Active take 30 mL by mouth three times daily as needed Alum Hydroxide-Mag Carbonate (Gaviscon E xtra Strength) 508-475 MG/10ML suspension Take 30 mL by mouth 3 times daily as needed (hiatal hernia). Active Comment on above: Take by mouth. carboxymethylcellulose sodiu m 5 mg/ml ophthalmic solution (8 sources) carboxymethylcel lulose (REFRESH) 0.5 % drop 1 drop. Active take 1 drop(s) into the eye(s) every hour as needed carboxymethylcellulose (Refresh Plus) 0. 5 % ophthalmic solution Administer 1 drop into both eyes every hour as needed for dry eyes. Active dext 70/polycarbophil/peg/Na Cl (ARTIFICIAL TEAR SOLUTION OPHTHALMIC) (20 sources) End: 01-15-2025 dext 70/polycarbophil/peg/Na Cl (ARTIFICIAL TEAR SOLUTION OPHTHALMIC) Use in eyes. 01/15/2025 Discontinued (Other) dext 70/polycarb ophil/peg/NaCl (ARTIFICIAL TEAR SOLUTION OPHTHALMIC) Use in eyes. Active dext 70/polycarb ophil/peg/NaCl (ARTIFICIAL TEAR SOLUTION OPHTHALMIC) Use in eyes. 0 Active Comment on above: Use in eyes. diazePAM (7 sources) Benzodiazepine Start: 025 End: diazePAM (VALTOCO) 10 mg/spray (0.1 mL) nasal spray Indications: Intractable epilepsy without status epilepticus, unspecified epilepsy type (HCC) Use 1 [place] in the nose as needed for seizures lasting longer than 3 minutes. May repeat dose once after 4 hours based on response and tolerability for a maximum of 2 doses per 24-hour period. 2 Each 1 12/24/2024 06/22/2025 Active docusate sodium 100 mg oral capsule (20 sources) Start: 023 End: take 1 capsule by mouth once daily as needed for constipation Docusate Sodium 100 mg capsule Active 100 mg PO DAILY as needed for constipation September 18, 2023 1:00am docusate sodium 50 mg / sennosides, retirement 8.6 mg oral tablet (2 sources) take 1 tablet by mouth every twenty-four hours as needed for constipation senna-docusate (Mariya-Colace) 8.6-50 MG tablet Take 1 tablet by mouth Daily as needed for constipation. Active ethosuximide 250 mg oral capsule (20 sources) Anti-epileptic Agent Start: 024 End: take 1 capsule by mouth twice daily ethosuximide (ZARONTIN) 250 mg capsule Take 1 capsule by mouth two times a day. 10 capsule 08/20/2024 Active Start: 09-18-2023 take 1 capsule by [facility] every twelve hours Ethosuximide 250 mg capsule Active 250 mg PO Q12H September 18, 2023 1:00am Start: 08-04-2019 ethosuximide ( ZARONTIN) 250 mg capsule twice daily. 08/04/2019 Active Start: 01-25-2019 take 10 mL by mouth twice sunny y ethosuximide (ZARONTIN) 250 mg/5 mL solution TAKE 10ML BY MOUTH TWO TIMES DAILY 1800 mL 1 04/24/2019 Active Comment on above: Take 500 mg/kg/dose by mouth twice daily. TAKE 10ML BY MOUTH T WO TIMES DAILY twice daily. Take 20 mL by mouth twice daily. furosemide 20 mg oral tablet (20 sources) Loop Diuretic Start: 09-18-2023 End: 12-08-2024 Furosemide 20 mg tablet Active 20 mg PO MOWEFR September 18, 2023 1:00am guaifenesin/dextrometho rphan (ROBITUSSIN-DM ORAL) (20 sources) End: 01-15-2025 guaifenesin/dextromethor tanner (ROBITUSSIN-DM ORAL) Take by mouth. 01/15/2025 Discontinued (Other) guaifenesin/dext romethorphan (ROBITUSSIN-DM ORAL) Take by mouth. Active guaifenesin/dext romethorphan (ROBITUSSIN-DM ORAL) Take by mouth. 0 Active Comment on above: Take by mouth. lacosamide 100 mg oral tablet (20 sources) Anti-epileptic Agent Start: 01-15-2025 End: 07-14-2025 take 1 tablet by mouth once daily at bedtime lacosamide (VIMPAT) 150 mg tab Indications: Intractable epilepsy without status epilepticus, unspecified epilepsy type (HCC) Take 1 tablet by mouth daily at bedtime for 180 days. 90 tablet 1 01/15/2025 07/14/2025 Active Start: 12-08-2024 End: 01-07-2025 take 1 tablet by mouth once daily lacosamide (Vimpat) 150 mg tablet tablet Indications: Breakthrough seizure (CMS/HCC) (HCC) Take 1 tablet (150 mg) by mouth Nightly. 30 tablet 12/08/2024 01/07/2025 Active Start: 12-05-2024 End: 12-08-2024 take 1 tablet by mouth once daily in the morning 100 mg, Oral, Every morning, First dose on Sun12/05/24 at 0900, Swallow tablets whole; do not divide. Start: 12-04-2024 End: 12-08-2024 take 1 tablet by mouth once daily 150 mg, Oral, Nightly, First dose on Sun12/04/24 at 2100, Swallow tablets whole; do not divide. Start: 12-04-2024 End: 06-02-2025 take 1 tablet by mouth twice daily lacosamide (VIMPAT) 150 mg tab Indications: Intractable epilepsy without status epilepticus, unspecified epilepsy type (HCC) Take 1 tablet by mouth two times a day for 180 days. 180 tablet 1 12/04/2024 01/15/2025 Discontinued Start: 12-03-2024 End: 07-15-2025 take 1 tablet by mouth at bedtime Lacosamide 100 mg tablet Active 100 mg PO AT BEDTIME December 03, 2024 1:00am Start: 12-03-2024 take 1 tablet by julian th every twelve hours Lacosamide 50 mg tablet Active 50 mg PO Q12H December 03, 2024 1:00am Start: 11-11-2024 End: 01-15-2025 take 1 tablet by mouth once daily at bedtime lacosamide (VIMPAT) 50 mg tab Indications: Intractable epilepsy without status epilepticus, unspecified epilepsy type (HCC) Take 1 tablet by mouth daily at bedtime for 7 days, THEN 1 tablet two times a day for 7 days. THEN 1 tablet in the morning and 2 tablets at night for 7 days. Then switch to the 100 mg tablet.. 42 tablet 11/11/2024 01/15/2025 Discontinued (Other) Start: 11-11-2024 End: 05-10-2025 take 1 tablet by mouth twice daily lacosamide (Vimpat) 100 MG tablet Take 100 mg by mouth twice a day. 11/11/2024 12/08/2024 Discontinued (Stop taking at discharge) levothyroxine sodium 0.05 mg oral tablet (20 sources) l-Thyroxine Start: 09-18-2023 End: 12-08-2024 take 1 tablet by mouth once daily Levothyroxine 50 mcg tablet Active 50 ug PO DAILY September 18, 2023 1:00am losartan potassium 25 mg oral tablet (20 sources) Angiotensin 2 Receptor Jayna Start: 09-18-2023 take 1 tablet by mouth once daily Losartan 25 mg tablet Active 25 mg PO DAILY September 18, 2023 1:00am Comment on above: Take 25 mg by mouth. magnesium hydroxide 240 mg/ml oral suspension (20 sources) End: 01-15-2025 take 10 mL by mouth once daily as needed magnesium hydroxide 2,400 mg/10 mL susp Take 10 mL by mouth once daily as needed. 01/15/2025 Discontinued (Other) take 1 mL by mouth e very twenty-four hours as needed for constipation magnesium hydroxide (Milk of Magnesia) 4 00 MG/5ML suspension Take 1 mL by mouth Daily as needed for constipation. Active Comment on above: Take 10 mL by mouth once daily as needed. melatonin 3 mg oral tablet (20 sources) Start: 09-18-2023 End: 12-08-2024 take 1 tablet by mouth once daily Melatonin 3 mg tablet Active 3 mg PO DAILY September 18, 2023 1:00am menthol 0.05 mg/mg topical gel (16 sources) menthol (BIOFREE ZE, MENTHOL,) 5 % topical gel Apply to affected area. Active Menthol 5.8 mg 5 .8 mg. Active Menthol (Cough D rops) 5.8 MG lozenge Dissolve 5.8 mg in the mouth as needed (cough, sore throat). Active midazolam 50 mg/ml nasal spray (19 sources) Benzodiazepine Start: 12-03-2024 Midazolam (Nay zilam) 5 mg/spray (0.1 mL) spray,non-aerosol Active 1 NMA INTRANASAL NEEDED December 03, 2024 1:00am Start: 11-10-2024 End: 02-09-2025 midazolam (NAYZILAM) 5 mg/sp ray (0.1 mL) nasal spray Indications: Intractable epilepsy without status epilepticus, unspecified epilepsy type (HCC) Use 1 [place] in the nose as needed for seizures lasting longer than 3 minutes for up to 90 days. May repeat dose in alternate nostril after 10 minutes based on response and tolerability. 2 Each 1 12/09/2024 12/24/2024 Discontinued mineral oil 45 mg/ml / mineral oil, light 10 mg/ml ophthalmic solution (20 sources) End: 01-15-2025 Light Mineral Oil-Mineral Oil (SOOTHE XP) 1-4.5 % drop Use in both eyes. 01/15/2025 Discontinued (Other) Comment on above: Use in both eyes. montelukast 10 mg oral tablet (20 sources) Leukotriene Receptor Antagonist Start: 07-15-2019 montelukast (SINGULAIR) 10 mg tablet 07/15/2019 Active pantoprazole 40 mg delayed release oral tablet (20 sources) Proton Pump Inhibitor Start: 09-18-2023 End: 12-08-2024 take 1 tablet by mouth once daily Pantoprazole 40 mg tablet,delayed release (DR/EC) Active 40 mg PO DAILY September 18, 2023 1:00am Comment on above: Take 40 mg by mouth once daily. phenytoin 50 mg chewable tablet (20 sources) Anti-epileptic Agent Start: 08-27-2024 End: 01-15-2025 take 1 tablet by mouth once daily at bedtime phenytoin chewable (DILANTIN) 50 mg tablet Take 50 mg by mouth daily at bedtime. 08/27/2024 01/15/2025 Discontinued (Other) Start: 08-20-2024 End: 01-15-2025 take 1 capsule by mouth three times daily phenytoin ER (DILANTIN) 100 mg ER capsule Take 1 capsule by mouth three times a day. 15 capsule 08/20/2024 01/15/2025 Discontinued (Other) Start: 09-18-2023 take 1 capsule by mo uth every twelve hours Phenytoin Sodium Extended 100 mg capsule Active 100 mg PO Q12H September 18, 2023 1:00am Start: 01-25-2019 take 8 mL by mouth o nce daily at bedtime phenytoin (DILANTIN) 125 mg/5 mL susp Indications: Intractable epilepsy without status epilepticus, unspecified epilepsy type (HCC) Take 8 mL by mouth daily at bedtime. 240 mL 5 01/25/2019 Active End: 12-04-2024 take 1 capsule by mouth once daily phenytoin ER (Dilantin) 100 MG capsule Take 100 mg by mouth Nightly. Per mar discontinue on 12/03/23 12/04/2024 Discontinued (Med list cleanup) take 1 tablet by julian th once daily phenytoin chewable (DILANTIN) 50 mg tablet Take 50 mg by mouth once daily. Active phenytoin sodium extended (DILANTIN ORAL) Take by mouth. Active PHENYTOIN SODIUM ORAL Take by mouth. Active phenytoin sodium extended (DILANTIN ORAL) Take by mouth. 0 Active PHENYTOIN SODIUM ORAL Take by mouth. 0 Active Comment on above: Take by mouth. Take 100 mg by mouth once daily. Take 50 mg by mouth once daily. Take 8 mL by mouth d aily at bedtime. sennosides, retirement 8.6 mg oral tablet (20 sources) End: 025 take 1 tablet by mouth twice daily senna (SENNA) 8.6 mg tab Take 8.6 mg by mouth twice daily. Active Comment on above: Take 8.6 mg by mouth twice daily. sodium phosphate, dibasic 59.3 mg/ml / sodium phosphate, monobasic 161 mg/ml enema (20 sources) sodium phosphate-sodium bisphosphate (FLEET ENEMA) enema 1 enema by RECTAL route one time only. Active Comment on above: 1 Enema by RECTAL ro [place] one time only. 28 actuat teriparatide 0.02 mg/actuat pen injector (3 sources) Parathyroid Hormone Analog Start: inject 20 ug by subcutaneous injection once daily teriparatide (FORTEO) 20 mcg/dose (620mcg/2.48mL) subcutaneous injection Inject 20mcg subcutaneously once daily. 2.48 mL 02/25/2025 Active valproic acid 250 mg oral capsule (20 sources) Mood Stabilizer, Anti-epileptic Agent Start: End: take 2 capsules by mouth three times daily valproic acid (DEPAKENE) 250 mg capsule Take 500 mg by mouth three times a day. 12/08/2024 12/08/2025 Active Start: 12-08-2024 End: 12-08-2025 take 2 capsules by mouth twice daily valproic acid (Depakene) 250 MG capsule Take 2 capsules (500 mg) by mouth 2 times daily. 120 capsule 12/08/2024 12/08/2025 Active Start: 12-04-2024 End: 12-08-2024 take 500 mg by mouth twice daily 500 mg, Oral, 2 times daily, First dose (after last modification) on Patricia 12/04/24 at 1400 Start: 08-20-2024 End: 03-25-2025 take 10 mL by mouth three times daily valproic acid (DEPAKENE) 250 mg/5 mL syrup Indications: Intractable epilepsy without status epilepticus, unspecified epilepsy type (HCC) Take 10 mL by mouth three times a day. 2700 mL 1 09/26/2024 01/15/2025 Discontinued (Other) Start: 09-18-2023 take 2 capsules by m outh every eight hours Valproic Acid 250 mg capsule Active 500 mg PO Q8H September 18, 2023 1:00am Start: 09-18-2023 take 750 mg by mouth every eight hours Valproic Acid Active 750 MG PO Q8H September 18, 2023 12:00am Start: 01-25-2019 take 20 mL by mouth three times daily valproic acid (DEPAKENE) 250 mg/5 mL syrup Indications: Intractable epilepsy without status epilepticus, unspecified epilepsy type (HCC) Take 20 mL by mouth three times daily. 1800 mL 5 01/25/2019 Active take 4 capsules by m outh three times daily valproic acid (DEPAKENE) 250 mg capsule Take 250 mg by mouth three times daily. 4 capsules (1000 mg) Active Comment on above: Take 250 mg by mouth three times daily. 4 capsules (1000 mg) Take 20 mL by mouth three times daily. Completed/Discontinued Medications Medication Drug Class(es) Dates Sig (Normalized) Sig (Original) Acetaminophen (20 sources) Start: 12-04-2024 End: 12-08-2024 take 1 tablet by mouth every six hours as needed for pain and fever acetaminophen (Tylenol) tablet 650 mg Start: 12-03-2024 End: 12-03-2024 650 mg, Oral, Once, On Sun at 1950, For 1 dose, Maximum dose of acetaminophen is 4000 mg from all sources in 24 hours. Start: 09-18-2023 take 2 tablets by mo uth once daily Acetaminophen 325 mg tablet Active 650 mg PO DAILY September 18, 2023 1:00am Start: 09-18-2023 take 650 mg by mouth once sunny y Acetaminophen Active 650 MG PO DAILY September 18, 2023 12:00am take 2 tablets by mo ut every six hours as needed acetaminophen (TYLENOL) 325 mg tablet Take 650 mg by mouth every 6 hours as needed. Active take 2 tablets by mo uth every six hours as needed for fever and pain acetaminophen (Tylenol) 325 MG tablet Take 650 mg by mouth every 6 hours as needed for fever or mild pain (1-3). Do not exceed 3 g/24 hours acetaminophen Active Comment on above: Take 650 mg by mouth every 6 hours as needed. [id number] 200 actuat albuter ol 0.09 mg/actuat metered dose inhaler (18 sources) beta2-Adrenergic Agonist Start: 12-04-2024 End: 12-08-2024 Start: 09-18-2023 Albuterol Sulf ate 90 mcg/actuation HFA aerosol inhaler Active 2 NMA INHALATION Q4H as needed for shortness of breath or wheezing September 18, 2023 1:00am Start: 09-18-2023 Albuterol Sulf ate Active 2 INH INHALATION Q4H September 18, 2023 12:00am take 2 puff(s) by in halation every four hours as needed albuterol HFA (PROVENTIL HFA, VENTOLIN HFA) 90 mcg/actuation inhaler Inhale 2 puffs as instructed every 4 hours as needed. Active aluminum hydroxide 64 mg/ml oral suspension (2 sources) End: 12-04-2024 take 254 mg by mouth three times daily after mealtime aluminum hydroxide (Alternagel) 320 MG/5ML suspension Take 254 mg by mouth 3 times daily. After meals 12/04/2024 Discontinued (Med list cleanup) bisacodyl 10 mg rectal suppository (20 sources) Stimulant Laxative Start: 12-04-2024 End: 01-15-2025 take 10 mg rectal route every twenty-four hours as needed for constipation Comment on above: 10 mg by RECTAL rout e once daily as needed. cefTRIAXone (Rocephin) 1,000 mg in sodium chloride 0.9 % 50 mL IVPB Mini-Bag Plus (4 sources) Start: 12-04-2024 End: 12-07-2024 1,000 mg, IntraVENous, at 100 mL/hr, Administer over 30 Minutes, Every 24 hours, First dose on Sun12/04/24 at 2000, For 4 doses, Mini-Bag Plus bag, Suspected Indication (Select all that apply): Urinary Tract Infection Start: 12-03-2024 End: 12-03-2024 1,000 mg, IntraVENous, at 10 0 mL/hr, Administer over 30 Minutes, Once, On Sun12/03/24 at 2230, For 1 dose, Mini-Bag Plus bag, Suspected Indication (Select all that apply): Urinary Tract Infection cholecalciferol 0.05 mg oral tablet (20 sources) Vitamin D Start: 12-04-2024 End: 12-08-2024 take 2000 [IU] by mouth once daily 2,000 Units, Oral, Daily, First dose on Sun12/04/24 at 0900 Start: 09-18-2023 take 1 tablet by [facility] once daily Cholecalciferol (Vitamin D3) 50 mcg (2,000 unit) tablet Active 50 ug PO DAILY September 18, 2023 1:00am Cholecalciferol, Vitamin D3, (VITAMIN D-3) 2,000 unit cap Take by mouth. Active take 1 capsule by [facility] once daily cholecalciferol (Vitamin D-3) 50 MCG (1999 UT) capsule Take 2,000 Units by mouth daily. Active Comment on above: Take by mouth. doxycycline hyclate 100 mg oral tablet (5 sources) Tetracycline-class Drug Start: 4 End: 5 take 1 tablet by mouth twice daily Doxycycline Hyclate 100 mg tablet Discontinued 100 mg PO TWICE A DAY August 17, 2024 12:00am December 03, 2024 1:58pm escitalopram 10 mg oral tablet (20 sources) Serotonin Reuptake Inhibitor Start: 5 End: 5 take 20 mg by mouth once daily 20 mg, Oral, Daily, First dose on Patricia 12/04/24 at 0800 Start: 09-18-2023 take 1 tablet by [facility] once daily Escitalopram Oxalate 20 mg tablet Active 20 mg PO DAILY September 18, 2023 1:00am fluticasone propionate 0.05 mg/actuat metered dose nasal spray (20 sources) Corticosteroid Start: 09-18-2023 End: 12-03-2024 Fluticasone Propionate 50 mcg/actuation spray,suspension Discontinued 2 NMA INTRANASAL DAILY September 18, 2023 1:00am December 03, 2024 1:59pm Start: 09-18-2023 Fluticasone Pr opionate Active 2 SPRAY INTRANASAL DAILY September 18, 2023 12:00am Start: 08-07-2019 End: 01-15-2025 fluticasone (FLONASE) 50 mcg /actuation nasal spray 08/07/2019 01/15/2025 Discontinued (Other) Fluticasone Propionate [Fluticasone Propionate 44 Mcg/Actuation Hfa Aerosol Inhaler] (Fluticasone Propionate 44 Mcg/Actuation Hfa Aerosol ) 44 mcg/actuation HFA aerosol inhaler (8 sources) Start: 09-18-2023 End: 12-03-2024 Fluticasone Propionate [Fluticasone Propionate 44 Mcg/Actuation Hfa Aerosol Inhaler] (Fluticasone Propionate 44 Mcg/Actuation Hfa Aerosol ) 44 mcg/actuation HFA aerosol inhaler Discontinued 2 NMA INHALATION Q12H September 18, 2023 1:00am December 03, 2024 1:59pm Start: 09-18-2023 take 1 puff(s) by in halation every twelve hours Fluticasone Propionate [Fluticasone Propionate 44 Mcg/Actuation Hfa Aerosol Inhaler] (Fluticasone Propionate 44 Mcg/Actuation Hfa Aerosol ) 44 mcg/actuation HFA aerosol inhaler Active 2 PUFF INHALATION Q12H September 18, 2023 12:00am iopamidol (Isovue-370) 76 % injection 75 mL (2 sources) Start: 12-03-2024 End: 12-03-2024 take 75 mL intravenously once as needed 75 mL, IntraVENous, IMG once PRN, contrast, Starting on Sun12/03/24 at 2053, For 1 dose loratadine 10 mg oral tablet (20 sources) Start: 08-17-2024 End: 01-15-2025 take 1 tablet by mouth once daily Loratadine 10 mg tablet Discontinued 10 mg PO DAILY August 17, 2024 12:00am December 03, 2024 1:59pm Comment on above: Take 10 mg by mouth once daily. 2 ml ondansetron 2 mg/ml injection (2 sources) Serotonin-3 Receptor Antagonist Start: 12-03-2024 End: 12-03-2024 4 mg, IntraVENous, Once, On Sun12/03/24 at 1920, For 1 dose ondansetron ODT (Zofran-ODT) disintegrating tablet 4 mg (2 sources) Start: 12-04-2024 End: 12-08-2024 take 1 tablet by mouth every eight hours as needed for nausea and vomiting ondansetron ODT (Zofran-ODT) disintegrating tablet 4 mg phenytoin (Dilantin) 1,000 mg in sodium chloride 0.9 % 100 mL IVPB (loading dose) (2 sources) Start: 12-03-2024 End: 12-03-2024 1,000 mg, IntraVENous, Administer over 60 Minutes, Once, On Sun12/03/24 at 2100, For 1 dose polyethylene glycol [id number] [id number] mg powder for oral solution (2 sources) Osmotic Laxative Start: 12-04-2024 End: 12-08-2024 take 17 g by mouth every twenty-four hours as needed for constipation 17 g, Oral, Daily PRN, constipation, Starting on Sun12/04/24 at 0122, 1st line for treatment of constipation - give scheduled if no bowel movement in past 24 hours. potassium chloride 20 meq powder for oral solution (20 sources) Start: 12-05-2024 End: 12-08-2024 take 1 [oz_av] by mouth once daily 10 mEq, Oral, Daily, First dose (after last modification) on Sun12/05/24 at 0900, Dissolve each packet in 4 ounces of water = 5 mEq per 1 oz fluid. Start: 12-04-2024 End: 12-04-2024 take 1 [oz_av] by mouth once daily 20 mEq, Oral, Daily, First dose on Sun12/04/24 at 0900, Dissolve each packet in 4 ounces of water = 5 mEq per 1 oz fluid. Start: 09-18-2023 take 1 tablet by mouth once da [place]oleon Potassium Chloride 10 mEq tablet extended release Active 10 meq PO DAILY September 18, 2023 1:00am Start: 09-18-2023 take 10 mEq by mouth twice ang ly Potassium Chloride Active 10 MEQ PO TWICE A DAY September 18, 2023 12:00am predniSONE 20 mg oral tablet (5 sources) Start: 08-17-2024 End: 12-03-2024 take 1 tablet by mouth twice daily Prednisone 20 mg tablet Discontinued 20 mg PO TWICE A DAY August 17, 2024 12:00am December 03, 2024 1:59pm 50 ml sodium chloride 9 mg/ml injection (4 sources) Start: 12-03-2024 End: 12-03-2024 1,000 mL, IntraVENous, at 1,000 mL/hr, Administer over 1 Hours, Once, On Sun12/03/24 at 2230, For 1 dose Problems Active Problems Problem Classification Problem Date Documented Da te Episodic/Chronic Aspiration pneumonitis; food/vomitus (5 sources) Pneumonitis due to inhalation of food and vomit; 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: [Acute aspiration pneumonitis] 12-11-2024 Episodic Cardiac dysrhythmias (5 sources) ECG: sinus tachycardia; 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: [Tachycardia, unspecified] 12-11-2024 Episodic Deficiency and other anemia (5 sources) Chronic anemia; 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: [Anemia, unspecified] 12-11-2024 Episodic Developmental disorders (2 sources) Intellectual disability; 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: [Unspecified intellectual disabilities] Onset: 01-27-2020 07-28-2022 Chronic Diabetes mellitus with complications (1 source) Type 2 diabetes mellitus with hyperosmolarity without nonketotic hyperglycemic-hyperos molar coma (N[facility]); 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: [Type 2 diabetes mellitus with hyperosmolarity without nonketotic hyperglycemic-hyperos molar coma (NKHHC)] Onset: 07-18-2024 Chronic Epilepsy; convulsions (20 sources) Epilepsy, unspecified, not intractable, without status epilepticus; 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: [Idiopathic generalized epilepsy] Onset: 06-06-2018 08-07-2018 Chronic Essential hypertension (7 sources) Essential hypertension; 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: [Essential (primary) hypertension] Onset: 01-27-2020 07-28-2022 Chronic Fever of unknown origin (4 sources) Fever; 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: [Fever, unspecified] Onset: 12-03-2024 12-03-2024 Episodic Fluid and electrolyte disorders (7 sources) Lactic acidosis; 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: [Lactic acidosis] Onset: 05-07-2024 12-11-2024 Episodic Gastroduodenal ulcer (except hemorrhage) (3 sources) Peptic ulcer; 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: [Peptic ulcer, site unspecified, unspecified as acute or chronic, without hemorrhage or perforation] Onset: 01-27-2020 07-28-2022 Chronic Hypertension with complications and secondary hypertension (2 sources) Hypertensive heart disease with heart failure; 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: [Hypertensive heart disease with heart failure] Onset: 05-13-2024 Chronic Malaise and fatigue (1 source) Weakness; 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: [Weakness] Onset: 02-10-2025 Episodic Mood disorders (2 sources) Depressive disorder; 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: [Depression] Onset: 10-26-2020 07-28-2022 Chronic Osteoporosis (8 sources) Osteoporosis; 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: [Age-related osteoporosis without current pathological fracture] Onset: 01-15-2025 12-01-2024 Chronic Other aftercare (2 sources) Long-term current use of drug therapy; 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 affecting estrogen receptors and estrogen levels] 09-24-2024 Episodic Other gastrointestinal disorders (2 sources) Dysphagia, oropharyngeal phase; 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: [Dysphagia, oropharyngeal phase] Onset: 01-22-2019 Episodic Other hereditary and degenerative nervous system conditions (2 sources) Cerebellar degeneration; 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: [Degenerative disease of nervous system, unspecified] Onset: 10-26-2020 07-28-2022 Chronic Other nervous system disorders (1 source) Metabolic encephalopathy; 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: [Metabolic encephalopathy] Onset: 01-15-2025 Chronic Other nervous system disorders (8 sources) H/O: epilepsy; 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: [Personal history of other diseases of the nervous system and sense organs] 09-18-2023 Episodic Other nutritional; endocrine; and metabolic disorders (20 sources) Obese class I; 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: [Obesity, Class I, BMI 30-34.9] Onset: 08-18-2024 08-18-2024 Chronic Other upper respiratory disease (2 sources) Allergic rhinitis; 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: [Allergic rhinitis, unspecified] Onset: 01-27-2020 07-28-2022 Chronic Other upper respiratory disease (1 source) Allergic rhinitis, unspecified; 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: [Allergic rhinitis, unspecified] Onset: 09-12-2024 Chronic Residual codes; unclassified (1 source) Dependence on wheelchair; 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: [Dependence on wheelchair] 02-25-2025 Chronic Respiratory failure; insufficiency; arrest (adult) (5 sources) Acute hypoxemic respiratory failure; 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: [Acute respiratory failure with hypoxia] 12-11-2024 Episodic Septicemia (except in labor) (8 sources) Sepsis due to urinary tract infection; 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: [Sepsis, unspecified organism] Onset: 12-03-2024 12-03-2024 Episodic Thyroid disorders (12 sources) Hypothyroidism; 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: [Other specified hypothyroidism] Onset: 01-27-2020 07-28-2022 Chronic Urinary tract infections (2 sources) Urinary tract infection, site not specified; 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: [Urinary tract infection, site not specified] Onset: 12-03-2024 Episodic Past or Other Problems Problem Classification Problem Date Documented Da te Episodic/Chronic Administrative/social admission (20 sources) Patient encounter status; 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: [Other specified counseling] Onset: 08-18-2024 08-18-2024 Episodic Epilepsy; convulsions (20 sources) Unspecified convulsions; 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: [Seizure] Onset: 06-06-2018 08-17-2024 Episodic Other aftercare (20 sources) H/O: high risk medication; 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: [Other [place] [facility] (current) drug therapy] Onset: 08-07-2018 08-07-2018 Episodic Other aftercare (1 source) senior care (current) use of other agents affecting estrogen receptors and estrogen levels; 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 affecting estrogen receptors and estrogen levels] Onset: 09-24-2024 Episodic Other circulatory disease (1 source) Other specified symptoms and signs involving the circulatory and respiratory systems; 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: [Other specified symptoms and signs involving the circulatory and respiratory systems] Onset: 09-12-2024 Episodic Other nervous system disorders (20 sources) Ataxia; 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: [Ataxia, unspecified] Onset: 08-07-2018 08-07-2018 Episodic Other nervous system disorders (20 sources) Dysarthria; 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: [Dysarthria and anarthria] Onset: 08-07-2018 08-07-2018 Episodic Other screening for suspected conditions (not mental disorders or infectious disease) (7 sources) Other specified abnormal findings of blood chemistry; 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: [Patient encounter status] Onset: 06-06-2018 09-24-2024 Episodic Residual codes; unclassified (2 sources) Dependent edema; 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: [Edema, unspecified] Onset: 01-27-2020 07-28-2022 Episodic Unclassified (1 source) Patient encounter status 11-26-2024 Unclassified (1 source) Long-term current use of drug therapy 11-26-2024 Results Test Name Value Interpretation Reference Range Facility [id number] 03-14-2025 [facility]. COMMENT Normal . [facility] Comment on above: Order Comment: COLLE CTOR TO SPECIFY Result Comment: Test Ordered: [id number] Lacosamide Test(s) 934511-Alxinexylh was developed and its performance characteristics determined by [facility]. It has not been cleared or approved by the Food and Drug Administration. Lacosamide 8.0 ug/mL Reference Range: 5.0-10.0 Limit of Detection 0.5 Mean plasma concentrations following maintenance dose 200 mg/day 4.99 +/- 2.51 ug/mL 400 mg/day 9.35 +/- 4.22 ug/mL 600 mg/day 12.46 +/- 5.60 ug/mL Performed at: - [facility] [id number] Recorder Of Deeds: Nahed Naidu MD, Phone: [phone] Performed at: [facility] [address] [id number] Recorder Of Deeds: Haris Peraza PhD, Phone: [phone] Performed By: #### L 400.0001 #### [facility] [address] [place], [place], [id number] Valproic Acid (Depakene) Lev maribell 03-10-2025 VALPROIC ACID 91 ug/mL Normal 50-100 [facility] Comment on above: Order Comment: COLLE CTOR TO SPECIFY Result Comment: Valp roic Acid concentrations >100 ug/mL are potentially toxic. Performed By: #### L 400.0001 #### [facility] [address] [place], [place], [id number] CBC-Complete Blood Cnt No Di ffon 03-04-2025 Erythrocyte distribution width (RBC) [Ratio] 14.5 % Normal 11.6-14.6 [facility] Comment on above: Order Comment: 729 Performed By: #### L 100.0100, L501.8100, L501.7700, L500.4050 #### [facility] [address] [place], [address] Hematocrit (Bld) [Volume fraction] 30.2 % Low 37-47 [facility] Comment on above: Order Comment: 729 Performed By: #### L 100.0100, L501.8100, L501.7700, L500.4050 #### [facility] [address] [place], [address] Hemoglobin (Bld) [Mass/Vol] 9.6 g/dL Low 12.0-15.0 [facility] Comment on above: Order Comment: 729 Performed By: #### L 100.0100, L501.8100, L501.7700, L500.4050 #### [facility] [address] [place], [address] MCH (RBC) [Entitic mass] 28.2 pg Normal 27.0-32.0 [facility] Comment on above: Order Comment: 729 Performed By: #### L 100.0100, L501.8100, L501.7700, L500.4050 #### [facility] [address] [place], [address] MCHC (RBC) [Mass/Vol] 31.8 g/dL Low 32-36 [facility] Comment on above: Order Comment: 729 Performed By: #### L 100.0100, L501.8100, L501.7700, L500.4050 #### [facility] [address] [place], [address] MCV (RBC) [Entitic vol] 88.6 fL Normal 81-99 [facility] Comment on above: Order Comment: 729 Performed By: #### L 100.0100, L501.8100, L501.7700, L500.4050 #### [facility] [address] [place], [address] Platelet mean volume (Bld) [Entitic vol] 12.1 fL High 6.2-12.0 [facility] Comment on above: Order Comment: 729 Performed By: #### L 100.0100, L501.8100, L501.7700, L500.4050 #### [facility] [address] [place], [address] Platelets (Bld) [#/Vol] 186 10*3/uL Normal 150-450 [facility] Comment on above: Order Comment: 729 Performed By: #### L 100.0100, L501.8100, L501.7700, L500.4050 #### [facility] [address] [place], [address] RBC (Bld) [#/Vol] 3.41 10*6/uL Low 4.2-5.4 [facility] Comment on above: Order Comment: 0730 Performed By: #### L 100.0100, L501.8100, L501.7700, L500.4050 #### [facility] [address] [place], [address] RDW SD 46.7 fl High 35.1-43.9 [facility] Comment on above: Order Comment: 0730 Performed By: #### L 100.0100, L501.8100, L501.7700, L500.4050 #### [facility] [address] [place], [address] WBC (Bld) [#/Vol] 7.4 10*3/uL Normal 4.4-11.0 [facility] Comment on above: Order Comment: 0730 Performed By: #### L 100.0100, L501.8100, L501.7700, L500.4050 #### [facility] [address] [place], [address] [facility] [facility] Telephone (WSTR) -------- KATHERYN CHINO ([id number]) 1945 F Date Time Provider Department 03/04/25 [facility] During your visit today, we recorded the following information about you: Lolita Jain PA-C 03/04/2025 4:50 PM Signed Labs dated 02/27/[address] [facility] CTX 197 SPEP - normal limits, no Mspike More labs to come Lolita Jain PA-C 03/05/2025 5:00 PM Signed Addtional labs: S Protein electrophoresis normal, no MSpike Ionized calcium 1.27 PTH 68 (high, ref 11-61) Phos 3.7 Mg 2.2 BMP Renal function Cr0.72 BUN 22 (H) Calcium 9.5 Vitamain D 46.9 Lolita Jain PA-C 03/05/2025 5:02 PM Signed Please call custodial. She has elevated PTH. We should hold off on the Forteo until I can review with my colleague. Will reach out next week with additional recommendations. ANABELL Velazquez Amy M, MA 03/06/2025 9:08 AM Signed I called and spoke with Katia at [facility]. Message from Lolita Jain PA-C given and Katia verbalized understanding. Mary Ronquillo LPN 03/17/2025 2:25 PM Signed [facility] calling to see if there has been any updates regarding the Forteo or if there are any alternatives we should consider due to cost? Appears that [facility] did get precert approved through February 2027 and were waiting to contact [facility] due to PTH. ADIA Wilson Kaitlyn, PA-C 03/19/2025 5:05 PM Signed Please return call. I suspect the PTH was elevated due inadequate calcium intake. Has she had a calcium supplement added to her medication routine? If so please confirm if it is 600 mg? If so, let's recheck her PTH level in 2 weeks, if normalized we will proceed with Forteo as initially planned New PTH Order placed for 2 weeks ANABELL Velazquez Kaitlyn, PA-C 03/19/2025 5:05 PM Signed Addended by: LOLITA JAIN on: 03/19/2025 05:05 PM Modules accepted: Orders Jacki Sumner MA 03/20/2025 3:34 PM Signed I called and spoke with YVONNE Amaya at [facility]. Message given to her from provider and she reports that the patient is taking Oyster Shell Calcium with vitamin D 500 mg-5 mcg once daily. She also reports that she was told there was an issue with Forteo not being covered by the insurance from the patients nurse. Previous message states it was authorized until 02/2027 and approval letter is scanned into the chart. Do you want them to still draw PTH in 2 weeks or do you want her to increase calcium first? Lolita Jain PA-C 03/23/2025 2:26 PM Signed 500mg is fine, continue this dose and repeat the lab in 2 weeks. I believe issue was not with coverage but with high pth level being high. If it normalizes, will plan to move forward with Forteo. Shavonne Petersen RN 03/23/2025 3:15 PM Signed Called and gave below message and orders to staff nurse at [facility]. Orders read back. Shavonne Petersen RN Allergies As of Date: 03/04/2025 (No Known Allergies) Date Reviewed: 02/25/2025 Reviewed by: Jacki Sumner MA - Fully Assessed Reason for Visit: Received Outside Medical Records [[id number]] Primary Visit Diagnosis:Osteoporosis without current pathological fracture, unspecified osteoporosis type [M81.0] Other Visit Diagnosis:Elevated parathyroid hormone [R79.89] Order(s):PTH INTACT [SQPTHI] Order #: [id number] FUTURE Prescriptions as of 03/23/2025 - insulin needles, DISPOSABLE, (BD INSULIN PEN NEEDLE UF) 31 gauge x 5/16" Use 1 pen needle once daily as directed for Teriparatide injections - teriparatide (FORTEO) 20 mcg/dose (620mcg/2.48mL) subcutaneous injection Inject 20mcg subcutaneously once daily. - lacosamide (VIMPAT) 100 mg tab Take 1 tablet by mouth every morning for 180 days. - albuterol HFA (PROVENTIL HFA, VENTOLIN HFA) 90 mcg/actuation inhaler Inhale 2 puffs as instructed every 4 hours as needed. - menthol (BIOFREEZE, MENTHOL,) 5 % topical gel Apply to affected area. - Menthol 5.8 mg 5.8 mg. - carboxymethylcellulose (REFRESH) 0.5 % drop 1 drop. - valproic acid (DEPAKENE) 250 mg capsule Take 500 mg by mouth three times a day. - lacosamide (VIMPAT) 150 mg tab Take 1 tablet by mouth daily at bedtime for 180 days. - diazePAM (VALTOCO) 10 mg/spray (0.1 mL) nasal spray Use 1 [place] in the nose as needed for seizures lasting longer than 3 minutes. May repeat dose once after 4 hours based on response and tolerability for a maximum of 2 doses per 24-hour period. - docusate sodium (COLACE) 100 mg capsule Take by mouth. - potassium chloride (K-TAB) 10 mEq tablet Take 10 mEq by mouth once daily. - ethosuximide (ZARONTIN) 250 mg capsule Take 1 capsule by mouth two times a day. - furosemide (LASIX) 20 mg tablet Take 1 tablet by mouth every Sunday, Sunday, and Sunday. - escitalopram oxalate (LEXAPRO) 20 mg tablet Ta (more content not included)... Normal [facility] Metabolic Prof [facility] 03-04-2025 Albumin [Mass/Vol] 3.7 g/dL Normal 3.4-4.8 [facility] Comment on above: Order Comment: 729 Performed By: #### L 100.0100, L501.8100, L501.7700, L500.4050 #### [facility] [address] [place], [address] Albumin/Globulin [Mass ratio] 1.2 {ratio} Normal 0.9-2.4 [facility] Comment on above: Order Comment: 729 Performed By: #### L 100.0100, L501.8100, L501.7700, L500.4050 #### [facility] [address] [place], [address] ALK PHOS 84 U/L Normal 35-104 [facility] Comment on above: Order Comment: 729 Performed By: #### L 100.0100, L501.8100, L501.7700, L500.4050 #### [facility] [address] [place], [address] ALT [Catalytic activity/Vol] 6 U/L Normal <=34 [facility] Comment on above: Order Comment: 729 Performed By: #### L 100.0100, L501.8100, L501.7700, L500.4050 #### [facility] [address] [place], [address] AST [Catalytic activity/Vol] 22 U/L Normal <=31 [facility] Comment on above: Order Comment: 729 Performed By: #### L 100.0100, L501.8100, L501.7700, L500.4050 #### [facility] [address] [place], [address] Bilirubin [Mass/Vol] 0.21 mg/dL Normal 0.00-1.30 [facility] Comment on above: Order Comment: 729 Performed By: #### L 100.0100, L501.8100, L501.7700, L500.4050 #### [facility] [address] [place], [address] BUN/CRE 22.8 RATIO High 10-20 [facility] Comment on above: Order Comment: 729 Performed By: #### L 100.0100, L501.8100, L501.7700, L500.4050 #### [facility] [address] [place], [address] Calcium [Mass/Vol] 9.1 mg/dL Normal 7.6-11.0 [facility] Comment on above: Order Comment: 729 Performed By: #### L 100.0100, L501.8100, L501.7700, L500.4050 #### [facility] [address] [place], [address] Chloride [Moles/Vol] 107 mmol/L Normal 98-108 [facility] Comment on above: Order Comment: 729 Performed By: #### L 100.0100, L501.8100, L501.7700, L500.4050 #### [facility] [address] [place], [address] CO2 [Moles/Vol] 24.0 mmol/L Normal 21.0-32.0 [facility] Comment on above: Order Comment: 729 Performed By: #### L 100.0100, L501.8100, L501.7700, L500.4050 #### [facility] [address] [place], [address] Creatinine [Mass/Vol] 0.74 mg/dL Normal 0.70-1.20 [facility] Comment on above: Order Comment: 729 Performed By: #### L 100.0100, L501.8100, L501.7700, L500.4050 #### [facility] [address] [place], [address] GAP 9 Normal 5-15 [facility] Comment on above: Order Comment: 729 Performed By: #### L 100.0100, L501.8100, L501.7700, L500.4050 #### [facility] [address] [place], [address] GFR/1.73 sq M.predicted among non-blacks MDRD (S/P/Bld) [Vol rate/Area] 83 mL/min/{1.73_m2} Normal >60 [facility] Comment on above: Order Comment: 729 Result Comment: mL/m in/1.73m2 CKD-EPI Creatinine Equation (2020) Performed By: #### L 100.0100, L501.8100, L501.7700, L500.4050 #### [facility] [address] [place], [address] Globulin (S) [Mass/Vol] 3.1 g/dL Normal 2.2-4.2 [facility] Comment on above: Order Comment: 729 Performed By: #### L 100.0100, L501.8100, L501.7700, L500.4050 #### [facility] [address] [place], [address] Glucose [Mass/Vol] 93 mg/dL Normal 70-99 [facility] Comment on above: Order Comment: 729 Performed By: #### L 100.0100, L501.8100, L501.7700, L500.4050 #### [facility] [address] [place], [address] Potassium [Moles/Vol] 4.9 mmol/L Normal 3.3-5.1 [facility] Comment on above: Order Comment: 729 Performed By: #### L 100.0100, L501.8100, L501.7700, L500.4050 #### [facility] [address] [place], [address] Sodium [Moles/Vol] 140 mmol/L Normal 133-145 [facility] Comment on above: Order Comment: 729 Performed By: #### L 100.0100, L501.8100, L501.7700, L500.4050 #### [facility] [address] [place], [address] T PROT 6.7 g/dL Normal 5.9-8.4 [facility] Comment on above: Order Comment: 729 Performed By: #### L 100.0100, L501.8100, L501.7700, L500.4050 #### [facility] [address] [place], [address] Urea nitrogen [Mass/Vol] 17 mg/dL Normal 4-19 [facility] Comment on above: Order Comment: 729 Performed By: #### L 100.0100, L501.8100, L501.7700, L500.4050 #### [facility] [address] [place], [address] [id number] 03-02-2025 [facility]. COMMENT Normal . [facility] Comment on above: Order Comment: 1939 Result Comment: Test Ordered: [id number] C-Telopeptide, Serum C-Telopeptide, Serum 197 pg/mL ES Reference Range: . Reference Range: Premenopausal Women: 34 - 635 Postmenopausal Women: 34 - 1037 Performed at: [facility] [address] [place] [id number] Recorder Of Deeds: Felix Bonilla MD, Phone: [phone] Performed at: [facility] [address] [id number] Recorder Of Deeds: Haris Peraza PhD, Phone: [phone] Performed By: #### L 501.7700 #### [facility] [address] [place], [address] Protein Electroph, Son 03-02 Albumin [Mass/Vol] 3.2 g/dL Normal 2.9-4.4 [facility] Comment on above: Order Comment: 1939 Performed By: #### L 501.7700 #### [facility] [address] [place], [address] Albumin/Globulin [Mass ratio] 0.9 {ratio} Normal 0.7-1.7 [facility] Comment on above: Order Comment: 1939 Performed By: #### L 501.7700 #### [facility] [address] [place], [address] ALPHA-1 GLOBUL 0.2 g/dL Normal 0.0-0.4 [facility] Comment on above: Order Comment: 1939 Performed By: #### L 501.7700 #### [facility] [address] [place], [address] ALPHA-2 GLOBUL 0.8 g/dL Normal 0.4-1.0 [facility] Comment on above: Order Comment: 1939 Performed By: #### L 501.7700 #### [facility] [address] [place], [address] BETA GLOBULIN 1.2 g/dL Normal 0.7-1.3 [facility] Comment on above: Order Comment: 1939 Performed By: #### L 501.7700 #### [facility] [address] [place], [address] GAMMA GLOBULIN 1.3 g/dL Normal 0.4-1.8 [facility] Comment on above: Order Comment: 1939 Performed By: #### L 501.7700 #### [facility] [address] [place], [address] Globulin (S) [Mass/Vol] 3.5 g/dL Normal 2.2-3.9 [facility] Comment on above: Order Comment: 1939 Performed By: #### L 501.7700 #### [facility] [address] [place], [address] INTERPRETATION Comment Normal . [facility] Comment on above: Order Comment: 1939 Result Comment: Prot ein electrophoresis scan will follow via computer, mail, or rn clinical trials delivery. Performed By: #### L 501.7700 #### [facility] [address] [place], [address] M-SPIKE Not Observed Normal Not Observed [facility] Comment on above: Order Comment: 1939 Performed By: #### L 501.7700 #### [facility] [address] [place], [address] NOTE: Comment Normal . [facility] Comment on above: Order Comment: 1939 Result Comment: The SPE pattern appears unremarkable. Evidence of monoclonal protein is not apparent. Performed at: [facility] [id number] [place], [place] [id number] Recorder Of Deeds: Haris Peraza PhD, Phone: [phone] Performed By: #### L 501.7700 #### [facility] [address] [place], [address] Protein [Mass/Vol] 6.7 g/dL Normal 6.0-8.5 [facility] Comment on above: Order Comment: 1939 Performed By: #### L [id number] #### [facility] [address], [address] Anion gap in Serum or Plasma Ordered By: Todd Velasquez on 02-27-2025 Anion gap [Moles/Vol] 10 mmol/L - [facility] BUN/creatinine ratioOrdered By: Todd Velasquez on 02-27-2025 Urea nitrogen/Creatinine [Mass ratio] 30.7 mg/mg High 10- [facility] Basic Metabolic Profile (BMP )on 02-27-2025 BUN/CRE 30.7 RATIO High - [facility] Comment on above: Order Comment: 729 Performed By: #### L 100.0100, L501.8100, L501.7700, L500.4050 #### [facility] [address] [place], [address] Calcium [Mass/Vol] 9.5 mg/dL Normal 7.6-11.0 [facility] Comment on above: Order Comment: 729 Performed By: #### L 100.0100, L501.8100, L501.7700, L500.4050 #### [facility] [address] [place], [address] Chloride [Moles/Vol] 106 mmol/L Normal 98-108 [facility] Comment on above: Order Comment: 729 Performed By: #### L 100.0100, L501.8100, L501.7700, L500.4050 #### [facility] [address] [place], [address] CO2 [Moles/Vol] 21.8 mmol/L Normal 21.0-32.0 [facility] Comment on above: Order Comment: 729 Performed By: #### L 100.0100, L501.8100, L501.7700, L500.4050 #### [facility] [address] [place], [address] Creatinine [Mass/Vol] 0.72 mg/dL Normal 0.70-1.20 [facility] Comment on above: Order Comment: 729 Performed By: #### L 100.0100, L501.8100, L501.7700, L500.4050 #### [facility] [address] [place], [address] GAP 10 Normal 5-15 [facility] Comment on above: Order Comment: 729 Performed By: #### L 100.0100, L501.8100, L501.7700, L500.4050 #### [facility] [address] [place], [address] GFR/1.73 sq M.predicted among non-blacks MDRD (S/P/Bld) [Vol rate/Area] 86 mL/min/{1.73_m2} Normal >60 [facility] Comment on above: Order Comment: 729 Result Comment: mL/m in/1.73m2 CKD-EPI Creatinine Equation (2020) Performed By: #### L 100.0100, L501.8100, L501.7700, L500.4050 #### [facility] [address] [place], [address] Glucose [Mass/Vol] 92 mg/dL Normal 70-99 [facility] Comment on above: Order Comment: 729 Performed By: #### L 100.0100, L501.8100, L501.7700, L500.4050 #### [facility] [address] [place], [address] Potassium [Moles/Vol] 4.7 mmol/L Normal 3.3-5.1 [facility] Comment on above: Order Comment: 729 Performed By: #### L 100.0100, L501.8100, L501.7700, L500.4050 #### [facility] [address] [place], [address] Sodium [Moles/Vol] 138 mmol/L Normal 133-145 [facility] Comment on above: Order Comment: 729 Performed By: #### L 100.0100, L501.8100, L501.7700, L500.4050 #### [facility] [address] [place], [address] Urea nitrogen [Mass/Vol] 22 mg/dL High 4-19 [facility] Comment on above: Order Comment: 729 Performed By: #### L 100.0100, L501.8100, L501.7700, L500.4050 #### [facility] [address] [place], [address] Carbon dioxide, total [Moles /volume] in Central venous bloodOrdered By: Todd Velasquez on 02-27-2025 CO2 [Moles/Vol] 21.8 mmol/L 21.0-32.0 [facility] Chloride assayOrdered By: Whitley on 02-27-2025 Chloride [Moles/Vol] 106 mmol/L 98-108 [facility] Glomerular filtration rate ( GFR) estimation/1.73 sq m using serum, plasma, or whole bOrdered By: Todd Velasquez on 02-27-2025 GFR/1.73 sq M.predicted among non-blacks MDRD (S/P/Bld) [Vol rate/Area] 86 mL/min/{1.73_m2} >60 [facility] Comment on above: mL/min/1.73m2 CKD-EP I Creatinine Equation (2020) L501.2276on 02-27-2025 Ionized Calcium 1.27 mmol/L Normal 1.09-1.30 [facility] Comment on above: Performed By: #### L 100.0100, L501.8100, L501.7700, L500.4050 #### [facility] [address] [place], [address] Magnesiumon 02-27-2025 Magnesium [Mass/Vol] 2.2 mg/dL Normal 1.5-2.2 [facility] Comment on above: Order Comment: 1939 Performed By: #### L 501.7700 #### [facility] [address] [place], [address] Magnesium measurement (mass/ volume)Ordered By: Todd Velasquez on 02-27-2025 Magnesium (Unsp spec) [Mass/Vol] 2.2 mg/dL 1.5-2.2 [facility] PTHINon 02-27-2025 PTH 68 pg/mL High 11-61 [facility] Comment on above: Performed By: #### L 100.0100, L501.8100, L501.7700, L500.4050 #### [facility] [address] [place], [address] Phosphoruson 02-27-2025 Phosphate [Mass/Vol] 3.7 mg/dL Normal 2.7-4.5 [facility] Comment on above: Order Comment: 1939 Performed By: #### L 501.7700 #### [facility] [address] [place], [address] Potassium measurement (mass/ volume)Ordered By: Todd Velasquez on 02-27-2025 Potassium (Unsp spec) [Mass/Vol] 4.7 mmol/L 3.3-5.1 [facility] Serum creatinine measurement (mass/volume)Ordered By: Todd Velasquez on 02-27-2025 Creatinine [Mass/Vol] 0.72 mg/dL 0.70-1.20 [facility] Serum glucose measurement (m ass/volume)Ordered By: Todd Velasquez on 02-27-2025 Glucose [Mass/Vol] 92 mg/dL 70-99 [facility] Serum or plasma calcium jacob urement (mass/volume)Ordered By: Todd Velasquez on 02-27-2025 Calcium [Mass/Vol] 9.5 mg/dL 7.6-11.0 [facility] Serum or plasma urea nitroge n measurement (mass/volume)Ordered By: Todd Velasquez on 02-27-2025 Urea nitrogen [Mass/Vol] 22 mg/dL High 4-19 [facility] Sodium levelOrdered By: Todd [facility] on 02-27-2025 Sodium [Moles/Vol] 138 mmol/L 133-145 [facility] Vitamin D,25 Hydroxyon 02-27 Vitamin D 25-OH 46.9 ng/mL Normal 30-100 [facility] Comment on above: Order Comment: 1939 Result Comment: Valery min D Status Deficiency: <20 ng/mL (50nmol/L) Insufficiency: 20-30 ng/mL (50-75 nmol/L) Sufficiency: 30-100 ng/mL (75-250 nmol/L) Toxicity: >100 ng/mL (>250 nmol/L) Performed By: #### L 501.7700 #### [facility] [address] [place], [address] [facility] -------- KATHERYN CHINO ([id number]) 1945 F Date Time Provider Department 02/26/25 [facility] During your visit today, we recorded the following information about you: Felipa Zuñiga LPN 02/26/2025 11:50 AM Signed Bill from [facility] called into office requesting clarification of calcium citrate supplement. Per office note SHILO velazquez states "The recommendation is 4039-8238 mg of calcium daily between diet and supplement. If she continues to eat 3 servings of dairy per day, I recommend additional 600 mg daily via calcium citrate supplement. " Office note faxed to [facility]. Nurse states that patient in almost completely incontinence and they state a 24 hr urine will be difficult. Please advise. ADIA Etienne Kaitlyn, PA-C 02/26/2025 12:24 PM Signed Ok to disregard 24 hour urine testing. Just have her take calcium citrate 600 mg daily, this will be fine with her current dietary intake. Jacki Sumner MA 02/26/2025 2:55 PM Signed Hermann Avalos from [facility] called back. Message from Lolita Jain PA-C given and she verbalized understanding. Allergies As of Date: 02/26/2025 (No Known Allergies) Date Reviewed: 02/25/2025 Reviewed by: Jacki Sumner MA - Fully Assessed Prescriptions as of 02/26/2025 - teriparatide (FORTEO) 20 mcg/dose (620mcg/2.48mL) subcutaneous injection Inject 20mcg subcutaneously once daily. - lacosamide (VIMPAT) 100 mg tab Take 1 tablet by mouth every morning for 180 days. - albuterol HFA (PROVENTIL HFA, VENTOLIN HFA) 90 mcg/actuation inhaler Inhale 2 puffs as instructed every 4 hours as needed. - menthol (BIOFREEZE, MENTHOL,) 5 % topical gel Apply to affected area. - Menthol 5.8 mg 5.8 mg. - carboxymethylcellulose (REFRESH) 0.5 % drop 1 drop. - valproic acid (DEPAKENE) 250 mg capsule Take 500 mg by mouth three times a day. - lacosamide (VIMPAT) 150 mg tab Take 1 tablet by mouth daily at bedtime for 180 days. - diazePAM (VALTOCO) 10 mg/spray (0.1 mL) nasal spray Use 1 [place] in the nose as needed for seizures lasting longer than 3 minutes. May repeat dose once after 4 hours based on response and tolerability for a maximum of 2 doses per 24-hour period. - docusate sodium (COLACE) 100 mg capsule Take by mouth. - potassium chloride (K-TAB) 10 mEq tablet Take 10 mEq by mouth once daily. - ethosuximide (ZARONTIN) 250 mg capsule Take 1 capsule by mouth two times a day. - furosemide (LASIX) 20 mg tablet Take 1 tablet by mouth every Sunday, Sunday, and Sunday. - escitalopram oxalate (LEXAPRO) 20 mg tablet Take 1 tablet by mouth once daily. - levothyroxine (SYNTHROID) 50 mcg tablet Take 1 tablet by mouth daily at 6 am. - melatonin 3 mg tablet Take 1 tablet by mouth daily at bedtime. - montelukast (SINGULAIR) 10 mg tablet - senna (SENNA) 8.6 mg tab Take 8.6 mg by mouth twice daily. - sodium phosphate-sodium bisphosphate (FLEET ENEMA) enema 1 enema by RECTAL route one time only. - Cholecalciferol, Vitamin D3, (VITAMIN D-3) 2,000 unit cap Take by mouth. - Aluminum Hydrox-Magnesium Carb (GAVISCON EXTRA STRENGTH) 254-237.5 mg/5 mL susp Take by mouth. - losartan potassium (LOSARTAN ORAL) Take 25 mg by mouth. - pantoprazole DR (PROTONIX) 40 mg tablet Take 40 mg by mouth once daily. - acetaminophen (TYLENOL) 325 mg tablet Take 650 mg by mouth every 6 hours as needed. 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 History of long-term treatment with high-risk m*08/07/2018 Dysarthria [R47.1] 08/07/2018 Nonintractable epilepsy without status epilepti*07/29/2019 Seizure (HCC) [R56.9] 08/17/2024 Breakthrough seizure (HCC) [G40.919] 08/17/2024 Obesity, Class I, BMI 30-34.9 [E66.811] 08/18/2024 DNR (do not resuscitate) discussion [Z71.89] 08/18/2024 Goals of care, counseling/discussion [Z71.89] 08/18/2024 Encounter Status:Closed by JACKI SUMNER on 02/26/25 Normal [facility] CNOVon 02-25-2025 CNOV Office Visit ([facility] ) -------- KATHERYN CHINO ([id number]) 1945 F Date Time Provider Department 02/25/25 3:00 PM [facility] During your visit today, we recorded the following information about you: Pulse Blood pressure Weight 71/minute 142/67 81.2 kg Lolita Jain PA-C 02/25/2025 4:03 PM Signed Osteoporosis and Metabolic Bone Disease CONSULTATION Referring Provider: Jayant Jimenez Date of Service: 02/25/2025 Gender: female Ethnicity: White Age: [age] year old Chief Complaint: New Patient Last Rheumatology visit: None at [facility] Katheryn Chino is a 79 year old White female who presents on 02/25/2025 for in person visit for osteoporosis evaluation. Disease History Osteoporosis History Upper Extremity Fracture (Comment: R arm fracture as a child) Most Recent BMD Daily Calcium diet: 900 mg Daily Vitamin D: 2000 IU Dental: Adtmis some mild pain in R Jaw. No recent extractions Link to FRAX Website RAPID 3 Castellanos Activities of Daily Living No Data Dress self? - Get in and out of bed? - Walk outdoors? - Wash and dry body? - Get in and out of car? - Tobacco Use Never smoked or used smokeless tobacco. Passive Exposure: Past Musculoskeletal History Fall Date Description / Comment 2022 one fall a few years ago, no injury. Wheelchair bound. utilizes assistance from nursing staff Treatment History None Osteoporosis Risk Factors Osteoporosis FRAX Risk Factors Upper Extremity Fracture (Comment: R arm fracture as a child) No family history of osteoporosis No parent with a hip fracture Not a current smoker no significant glucocorticoid use No rheumatoid arthritis No secondary osteoporosis No alcohol use more than 3 units per day Osteoporosis Medication Risk Factors Anti-convulsants Furosemide Proton pump inhibitor Osteoporosis Disease-Specific Risk Factors Weight is not less than 127 lbs Height loss 2 inches Poor balance (Comment: does physical therapy and occupational therapy. Does walking with bars 3 times per week) Fall history Fall Date Description / Comment 2022 one fall a few years ago, no injury. Wheelchair bound. utilizes assistance from nursing staff No history of eating disorders No history of hypercalciuria No history of renal calculi Chronic kidney disease Caffeine intake: 1-3 c/day Exercise routine: minimal exercise Types of exercise: physical therapy Bone Density Reports Last Bone Density DXA-AXIAL SKELETON Exam End: 11/26/2024 11:09 AM (Final result) Narrative: * * *Final Report* * * DATE OF EXAM: Nov 26 2024 11:08AM AWX [id number] - BD DXA - AXIAL SKELETON / PROCEDURE REASON: multiple diagnoses * * * * Physician Interpretation * * * * EXAMINATION: DXA BONE DENSITOMETRY BD DXA - AXIAL SKELETON, BD DXA TRABECLR BONE SCORE (TBS) PATIENT DEMOGRAPHICS: Age: 79 years, Gender: Female SCANNER INFORMATION: DXA Model: [email or web address] - [employer] [id number] Date Scanned: 11/26/2024 11:08 AM CLINICAL HISTORY: DIAGNOSTIC 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 osteoporosis senior care (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 Postmenopausal. RISK FACTORS FOR OSTEOPOROSIS AND ASSOCIATED FRACTURES REPORTED BY THIS PATIENT: Please refer to Bone Health Questionnaire in the EMR CURRENT THERAPY: Please refer to Bone Health Questionnaire in the EMR TECHNICAL LIMITATIONS: Degenerative disease of the spine RESULTS: Lumbar spine (L1, L2, L3, L4): 0.888 g/cm2, T-score -2.4, Z-score -1.1 Right Femoral Neck: 0.505 g/cm2, T-score -3.8, Z-score -2.1 Right Total Hip: 0.445 g/cm2, T-score -4.5, Z-score -2.9 Left Femoral Neck: 0.602 g/cm2, T-score -3.1, Z-score -1.4 Left Total Hip: 0.494 g/cm2, T-score -4.1, Z-score -2.5 No comparison data - the patient has not had a previous bone density in the [facility] or the previous bone density was performed on a different DXA machine (new, updated model or different location) within the [facility]. VERTEBRAL FRACTURE ASSESSMENT Not performed. TRABECULAR BONE ASSESSMENT TBS score: 1.113 Bone micro-architecture: Degraded (< or = 1.230) Impression: IMPRESSION: THE LOWEST T-SCORE IS -4.5 IN THE LEFT HIP 1) DIAGNOSIS (based on BMD alone): OSTEOPOROSIS Caution: Medical conditions other than osteoporosis may cause low bone density, such as osteomalacia or renal osteodystrophy. Clinical correlation is necessary. 2) FRACTURE RISK (Based on TBS adjusted FRAX): 10-year absolute fracture risk: - major osteoporotic fracture = 32.8 % - hip fracture = 17.0 % - A diagnosis of Osteoporosis, a 10 year probability of hip fracture greater than or equal to 3% or a 10 year probability of any major osteoporosis-related fracture greater than or equal to 20% should be considered for treatment. (more content not included)... Normal [facility] Anion gap in Serum or Plasma Ordered By: Todd Velasquez on 02-02-2025 Anion gap [Moles/Vol] 11 mmol/L 5-15 [facility] BUN/creatinine ratioOrdered By: Todd Velasquez on 02-02-2025 Urea nitrogen/Creatinine [Mass ratio] 20.1 mg/mg High 10- [facility] Basic Metabolic Profile (BMP )on 02-02-2025 BUN/CRE 20.1 RATIO High - [facility] Comment on above: Order Comment: 1939 Performed By: #### L [id number] #### [facility] [address] [place], [address] Calcium [Mass/Vol] 8.9 mg/dL Normal 7.6-11.0 [facility] Comment on above: Order Comment: 1939 Performed By: #### L 501.7700 #### [facility] [address] [place], [address] Chloride [Moles/Vol] 105 mmol/L Normal 98-108 [facility] Comment on above: Order Comment: 1939 Performed By: #### L 501.7700 #### [facility] [address] [place], [address] CO2 [Moles/Vol] 21.8 mmol/L Normal 21.0-32.0 [facility] Comment on above: Order Comment: 1939 Performed By: #### L [id number] #### [facility] [address] [place], [address] Creatinine [Mass/Vol] 0.65 mg/dL Low 0.70-1.20 [facility] Comment on above: Order Comment: 1939 Performed By: #### L 501.7700 #### [facility] [address] [place], [address] GAP 11 Normal 5-15 [facility] Comment on above: Order Comment: 1939 Performed By: #### L 501.7700 #### [facility] [address] [place], [address] GFR/1.73 sq M.predicted among non-blacks MDRD (S/P/Bld) [Vol rate/Area] 91 mL/min/{1.73_m2} Normal >60 [facility] Comment on above: Order Comment: 1939 Result Comment: mL/m in/1.73m2 CKD-EPI Creatinine Equation (2020) Performed By: #### L 501.7700 #### [facility] [address] [place], [address] Glucose [Mass/Vol] 85 mg/dL Normal 70-99 [facility] Comment on above: Order Comment: 1939 Performed By: #### L 501.7700 #### [facility] [address] [place], [address] Potassium [Moles/Vol] 4.2 mmol/L Normal 3.3-5.1 [facility] Comment on above: Order Comment: 1939 Performed By: #### L 501.7700 #### [facility] [address] [place], [address] Sodium [Moles/Vol] 138 mmol/L Normal 133-145 [facility] Comment on above: Order Comment: 1939 Performed By: #### L 501.7700 #### [facility] [address] [place], [address] Urea nitrogen [Mass/Vol] 13 mg/dL Normal 4-19 [facility] Comment on above: Order Comment: 1939 Performed By: #### L [id number] #### [facility] [address] [place], [place], [address] Carbon dioxide, total [Moles /volume] in Central venous bloodOrdered By: Todd Velasquez on 02-02-2025 CO2 [Moles/Vol] 21.8 mmol/L 21.0-32.0 [facility] Chloride assayOrdered By: Whitley on 02-02-2025 Chloride [Moles/Vol] 105 mmol/L 98-108 [facility] GFR/1.73 sq M.predicted miguel g non-blacks MDRD (S/P/Bld) [Vol rate/Area]Ordered By: Todd Velasquez on 02-02-2025 Estimated GFR (MDRD) Non-Af Amer 91 >60 [facility] Comment on above: mL/min/1.73m2 CKD-EP I Creatinine Equation (2020) Glomerular filtration rate ( GFR) estimation/1.73 sq m using serum, plasma, or whole bOrdered By: Todd Velasquez on 02-02-2025 GFR/1.73 sq M.predicted among non-blacks MDRD (S/P/Bld) [Vol rate/Area] 91 mL/min/{1.73_m2} >60 [facility] Comment on above: mL/min/1.73m2 CKD-EP I Creatinine Equation (2020) Potassium (Unsp spec) [Mass/ Vol]Ordered By: Todd Velasquez on 02-02-2025 Potassium [Moles/Vol] 4.2 mmol/L 3.3-5.1 [facility] Potassium measurement (mass/ volume)Ordered By: Todd Velasquez on 02-02-2025 Potassium (Unsp spec) [Mass/Vol] 4.2 mmol/L 3.3-5.1 [facility] Serum creatinine measurement (mass/volume)Ordered By: Todd Velasquez on 02-02-2025 Creatinine [Mass/Vol] 0.65 mg/dL Low 0.70-1.20 [facility] Serum glucose measurement (m ass/volume)Ordered By: Todd Velasquez on 02-02-2025 Glucose [Mass/Vol] 85 mg/dL 70-99 [facility] Serum or plasma calcium jacob urement (mass/volume)Ordered By: Todd Velasquez on 02-02-2025 Calcium [Mass/Vol] 8.9 mg/dL 7.6-11.0 [facility] Serum or plasma urea nitroge n measurement (mass/volume)Ordered By: Todd Velasquez on 02-02-2025 Urea nitrogen [Mass/Vol] 13 mg/dL 4-19 [facility] Sodium levelOrdered By: Todd Velasquez on 02-02-2025 Sodium [Moles/Vol] 138 mmol/L 133-145 [facility] TSH DL <= 0.005 mIU/L QnOrde red By: Todd Velasquez on 01-28-2025 Thyroid Stimulating Hormone (TSH) 2.410 uIU/mL 0.300-4.200 [facility] TSH Qn 2.410 uIU/mL 0.300-4.200 [facility] Thyroid Stim Hormone (TSH)on 01-28-2025 TSH 2.410 uIU/mL Normal 0.300-4.200 [facility] Comment on above: Order Comment: 211.2 0000 Performed By: #### L 501.8100, L501.7700 #### [facility] [address] [place], [address] Anion gap in Serum or Plasma Ordered By: Todd Velasquez on 01-19-2025 Anion gap [Moles/Vol] 12 mmol/L 5-15 [facility] BUN/creatinine ratioOrdered By: Todd Velasquez on 01-19-2025 Urea nitrogen/Creatinine [Mass ratio] 20.6 mg/mg High 10-20 [facility] Basic Metabolic Profile (BMP )on 01-19-2025 BUN/CRE 20.6 RATIO High - [facility] Comment on above: Order Comment: 729 Performed By: #### L 100.0100, L501.8100, L501.7700, L500.4050 #### [facility] [address] [place], [address] Calcium [Mass/Vol] 9.1 mg/dL Normal 7.6-11.0 [facility] Comment on above: Order Comment: 729 Performed By: #### L 100.0100, L501.8100, L501.7700, L500.4050 #### [facility] [address] [place], [address] Chloride [Moles/Vol] 104 mmol/L Normal 98-108 [facility] Comment on above: Order Comment: 729 Performed By: #### L 100.0100, L501.8100, L501.7700, L500.4050 #### [facility] [address] [place], [address] CO2 [Moles/Vol] 20.1 mmol/L Low 21.0-32.0 [facility] Comment on above: Order Comment: 729 Performed By: #### L 100.0100, L501.8100, L501.7700, L500.4050 #### [facility] [address] [place], [address] Creatinine [Mass/Vol] 0.69 mg/dL Low 0.70-1.20 [facility] Comment on above: Order Comment: 729 Performed By: #### L 100.0100, L501.8100, L501.7700, L500.4050 #### [facility] [address] [place], [address] GAP 12 Normal 5-15 [facility] Comment on above: Order Comment: 729 Performed By: #### L 100.0100, L501.8100, L501.7700, L500.4050 #### [facility] [address] [place], [address] GFR/1.73 sq M.predicted among non-blacks MDRD (S/P/Bld) [Vol rate/Area] 89 mL/min/{1.73_m2} Normal >60 [facility] Comment on above: Order Comment: 729 Result Comment: mL/m in/1.73m2 CKD-EPI Creatinine Equation (2020) Performed By: #### L 100.0100, L501.8100, L501.7700, L500.4050 #### [facility] [address] [place], [address] Glucose [Mass/Vol] 94 mg/dL Normal 70-99 [facility] Comment on above: Order Comment: 729 Performed By: #### L 100.0100, L501.8100, L501.7700, L500.4050 #### [facility] [address] [place], [address] Potassium [Moles/Vol] 4.2 mmol/L Normal 3.3-5.1 [facility] Comment on above: Order Comment: 729 Performed By: #### L 100.0100, L501.8100, L501.7700, L500.4050 #### [facility] [address] [place], [address] Sodium [Moles/Vol] 136 mmol/L Normal 133-145 [facility] Comment on above: Order Comment: 729 Performed By: #### L 100.0100, L501.8100, L501.7700, L500.4050 #### [facility] [address] [place], [address] Urea nitrogen [Mass/Vol] 14 mg/dL Normal 4-19 [facility] Comment on above: Order Comment: 729 Performed By: #### L 100.0100, L501.8100, L501.7700, L500.4050 #### [facility] [address] [place], [address] CBC-Complete Blood Cnt No Di ffon 01-19-2025 Erythrocyte distribution width (RBC) [Ratio] 14.1 % Normal 11.6-14.6 [facility] Comment on above: Order Comment: 729 Performed By: #### L 100.0100, L501.8100, L501.7700, L500.4050 #### [facility] [address] [place], [address] Hematocrit (Bld) [Volume fraction] 33.3 % Low 37-47 [facility] Comment on above: Order Comment: 729 Performed By: #### L 100.0100, L501.8100, L501.7700, L500.4050 #### [facility] [address] [place], [address] Hemoglobin (Bld) [Mass/Vol] 10.8 g/dL Low 12.0-15.0 [facility] Comment on above: Order Comment: 729 Performed By: #### L 100.0100, L501.8100, L501.7700, L500.4050 #### [facility] [address] [place], [address] MCH (RBC) [Entitic mass] 28.3 pg Normal 27.0-32.0 [facility] Comment on above: Order Comment: 729 Performed By: #### L 100.0100, L501.8100, L501.7700, L500.4050 #### [facility] [address] [place], [address] MCHC (RBC) [Mass/Vol] 32.4 g/dL Normal 32-36 [facility] Comment on above: Order Comment: 729 Performed By: #### L 100.0100, L501.8100, L501.7700, L500.4050 #### [facility] [address] [place], [address] MCV (RBC) [Entitic vol] 87.4 fL Normal 81-99 [facility] Comment on above: Order Comment: 729 Performed By: #### L 100.0100, L501.8100, L501.7700, L500.4050 #### [facility] [address] [place], [address] Platelet mean volume (Bld) [Entitic vol] 12.3 fL High 6.2-12.0 [facility] Comment on above: Order Comment: 729 Performed By: #### L 100.0100, L501.8100, L501.7700, L500.4050 #### [facility] [address] [place], [address] Platelets (Bld) [#/Vol] 193 10*3/uL Normal 150-450 [facility] Comment on above: Order Comment: 729 Performed By: #### L 100.0100, L501.8100, L501.7700, L500.4050 #### [facility] [address] [place], [address] RBC (Bld) [#/Vol] 3.81 10*6/uL Low 4.2-5.4 [facility] Comment on above: Order Comment: 729 Performed By: #### L 100.0100, L501.8100, L501.7700, L500.4050 #### [facility] [address] [place], [address] RDW SD 45.1 fl High 35.1-43.9 [facility] Comment on above: Order Comment: 729 Performed By: #### L 100.0100, L501.8100, L501.7700, L500.4050 #### [facility] [address] [place], [address] WBC (Bld) [#/Vol] 6.3 10*3/uL Normal 4.4-11.0 [facility] Comment on above: Order Comment: 729 Performed By: #### L 100.0100, L501.8100, L501.7700, L500.4050 #### [facility] [address] [place], [address] Carbon dioxide, total [Moles /volume] in Central venous bloodOrdered By: Todd Velasquez on 01-19-2025 CO2 [Moles/Vol] 20.1 mmol/L Low 21.0-32.0 [facility] Chloride assayOrdered By: Whitley on 01-19-2025 Chloride [Moles/Vol] 104 mmol/L 98-108 [facility] Erythrocyte distribution wid th (RBC) [Ratio]Ordered By: Todd Velasquez on 01-19-2025 Erythrocyte distribution width (RBC) [Entitic vol] 45.1 fL High 35.1-43.9 [facility] Erythrocyte distribution wid th ratioOrdered By: Todd Velasquez on 01-19-2025 Erythrocyte distribution width (RBC) [Ratio] 14.1 % 11.6-14.6 [facility] Erythrocyte distribution wid th standard deviationOrdered By: Todd Velasquez on 01-19-2025 Erythrocyte distribution width (RBC) [Ratio] 45.1 fl High 35.1-43.9 [facility] GFR/1.73 sq M.predicted miguel g non-blacks MDRD (S/P/Bld) [Vol rate/Area]Ordered By: Todd Velasquez on 01-19-2025 Estimated GFR (MDRD) Non-Af Amer 89 >60 [facility] Comment on above: mL/min/1.73m2 CKD-EP I Creatinine Equation (2020) Glomerular filtration rate ( GFR) estimation/1.73 sq m using serum, plasma, or whole bOrdered By: Todd Velasquez on 01-19-2025 GFR/1.73 sq M.predicted among non-blacks MDRD (S/P/Bld) [Vol rate/Area] 89 mL/min/{1.73_m2} >60 [facility] Comment on above: mL/min/1.73m2 CKD-EP I Creatinine Equation (2020) Hematocrit Auto (Bld) [Volum e fraction]Ordered By: Todd Velasquez on 01-19-2025 Hematocrit (Bld) [Volume fraction] 33.3 % Low 37-47 [facility] Hemoglobin measurementOrdere d By: Todd Velasquez on 01-19-2025 Hemoglobin (Bld) [Mass/Vol] 10.8 g/dL Low 12.0-15.0 [facility] MCV (mean corpuscular volume ) determinationOrdered By: Todd Velasquez on 01-19-2025 MCV (RBC) [Entitic vol] 87.4 fL 81-99 [facility] Mean corpuscular hemoglobin (MCH) determinationOrdered By: Todd Velasquez on 01-19-2025 MCH (RBC) [Entitic mass] 28.3 pg 27.0-32.0 [facility] Mean corpuscular hemoglobin concentration (MCHC) determinationOrdered By: Todd Velasquez on 01-19-2025 MCHC (RBC) [Mass/Vol] 32.4 g/dL 32-36 [facility] Mean platelet volume determi nationOrdered By: Todd Velasquez on 01-19-2025 Platelet mean volume (Bld) [Entitic vol] 12.3 fL High 6.2-12.0 [facility] Platelet countOrdered By: Whitley on 01-19-2025 Platelets (Bld) [#/Vol] 193 10*3/uL 150-450 [facility] Potassium (Unsp spec) [Mass/ Vol]Ordered By: Todd Velasquez on 01-19-2025 Potassium [Moles/Vol] 4.2 mmol/L 3.3-5.1 [facility] Potassium measurement (mass/ volume)Ordered By: Todd Velasquez on 01-19-2025 Potassium (Unsp spec) [Mass/Vol] 4.2 mmol/L 3.3-5.1 [facility] RBC Auto (Bld) [#/Vol]Ordere d By: Todd Velasquez on 01-19-2025 RBC (Bld) [#/Vol] 3.81 10*6/uL Low 4.2-5.4 [facility] Serum creatinine measurement (mass/volume)Ordered By: Todd Velasquez on 01-19-2025 Creatinine [Mass/Vol] 0.69 mg/dL Low 0.70-1.20 [facility] Serum glucose measurement (m ass/volume)Ordered By: Todd Velasquez on 01-19-2025 Glucose [Mass/Vol] 94 mg/dL 70-99 [facility] Serum or plasma calcium jacob urement (mass/volume)Ordered By: Todd Velasquez on 01-19-2025 Calcium [Mass/Vol] 9.1 mg/dL 7.6-11.0 [facility] Serum or plasma urea nitroge n measurement (mass/volume)Ordered By: Todd Velasquez on 01-19-2025 Urea nitrogen [Mass/Vol] 14 mg/dL 4-19 [facility] Sodium levelOrdered By: Todd Velasquez on 01-19-2025 Sodium [Moles/Vol] 136 mmol/L 133-145 [facility] White blood cell (WBC) count Ordered By: Todd Velasquez on 01-19-2025 WBC (Bld) [#/Vol] 6.3 10*3/uL 4.4-11.0 [facility] CNPNon 01-16-2025 LIBORIO Telephone (NE50MN) -------- KATHERYN CHINO ([id number]) 1945 F Date Time Provider Department 01/16/25 JAYANT JIMENEZ NE50MN During your visit today, we recorded the following information about you: Naheed Guallpa 01/16/2025 12:38 PM Signed Medication Concern Person Calling [facility] from [facility] Name of medication Lacosamide Concern with medication They have Katheryn taking 100MG in the morning and 50 mg at night. Per yesterdays appointment it states 150mg at time time. What one should they do ? Patient of Sandra Duncan RN 01/16/2025 4:48 PM Signed 01/15/[address] Jimenez PLAN: Continue Depakote 500 mg TID ( level from December) Continue Vimpat 100-150 mg (Level 4.5) Continue Ethosuximide 250 mg BID Referral to Rheumatology placed- not scheduled yet. Future options: Increase Vimpat to 150 mg BID. Recheck serum ASM levels. Trial of ZNS, Onfi. Data reviewed as above including: electronic medical record FOLLOW-UP: Return in about 6 months (around 07/17/2025). ========= current: LCM: 100/150 11/11/24 LCM titration started: at 50 mg and to titrate to 100 mg BID then switch over to the 100 mg tablets BID Spoke with Katia Confirmed LCM 100/150 they are questioning because only received the 150 mg at bedtime RX routed to have the 100 mg LCM RX for the AM to be sent in. MEGA Dhillon Ailis, PA-C 01/16/2025 4:54 PM Signed The following approved medication requests have been transmitted electronically. Requested Prescriptions Signed Prescriptions Disp Refills lacosamide (VIMPAT) 100 mg tab 90 tablet 1 Sig: Take 1 tablet by mouth every morning for 180 days. Authorizing Provider: MAYDA HOWARD PA-C PDMP website checked and validated. All prescriptions have been APPROPRIATELY filled. No suspicious activity was identified. 01/16/2025 by Mayda Howard PA-C Allergies As of Date: 01/16/2025 (No Known Allergies) Date Reviewed: 01/15/2025 Reviewed by: Shalini Montana LPN - Fully Assessed Reason for Visit: Medication Problem [65] Cmt: Lacosamide Primary Visit Diagnosis:Intractable epilepsy without status epilepticus, unspecified epilepsy type (HCC) [G40.919] Order(s):lacosamide (VIMPAT) 100 mg tabTake 1 tablet by mouth every morning for 180 days.Disp: 90 tabletRfl: 1 Prescriptions as of 01/19/2025 - lacosamide (VIMPAT) 100 mg tab Take 1 tablet by mouth every morning for 180 days. - albuterol HFA (PROVENTIL HFA, VENTOLIN HFA) 90 mcg/actuation inhaler Inhale 2 puffs as instructed every 4 hours as needed. - menthol (BIOFREEZE, MENTHOL,) 5 % topical gel Apply to affected area. - Menthol 5.8 mg 5.8 mg. - carboxymethylcellulose (REFRESH) 0.5 % drop 1 drop. - valproic acid (DEPAKENE) 250 mg capsule Take 500 mg by mouth three times a day. - lacosamide (VIMPAT) 150 mg tab Take 1 tablet by mouth daily at bedtime for 180 days. - diazePAM (VALTOCO) 10 mg/spray (0.1 mL) nasal spray Use 1 [place] in the nose as needed for seizures lasting longer than 3 minutes. May repeat dose once after 4 hours based on response and tolerability for a maximum of 2 doses per 24-hour period. - docusate sodium (COLACE) 100 mg capsule Take by mouth. - potassium chloride (K-TAB) 10 mEq tablet Take 10 mEq by mouth once daily. - ethosuximide (ZARONTIN) 250 mg capsule Take 1 capsule by mouth two times a day. - furosemide (LASIX) 20 mg tablet Take 1 tablet by mouth every Sunday, Sunday, and Sunday. - escitalopram oxalate (LEXAPRO) 20 mg tablet Take 1 tablet by mouth once daily. - levothyroxine (SYNTHROID) 50 mcg tablet Take 1 tablet by mouth daily at 6 am. - melatonin 3 mg tablet Take 1 tablet by mouth daily at bedtime. - montelukast (SINGULAIR) 10 mg tablet - senna (SENNA) 8.6 mg tab Take 8.6 mg by mouth twice daily. - sodium phosphate-sodium bisphosphate (FLEET ENEMA) enema 1 enema by RECTAL route one time only. - Cholecalciferol, Vitamin D3, (VITAMIN D-3) 2,000 unit cap Take by mouth. - Aluminum Hydrox-Magnesium Carb (GAVISCON EXTRA STRENGTH) 254-237.5 mg/5 mL susp Take by mouth. - losartan potassium (LOSARTAN ORAL) Take 25 mg by mouth. - pantoprazole DR (PROTONIX) 40 mg tablet Take 40 mg by mouth once daily. - acetaminophen (TYLENOL) 325 mg tablet Take 650 mg by mouth every 6 hours as needed. 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 Normal [facility] CNOVon 01-15-2025 CNOV Office Visit (NEEPBA ) -------- KATHERYN CHINO ([id number]) 1945 F Date Time Provider Department 01/15/25 8:00 AM JAYANT JIMENEZ During your visit today, we recorded the following information about you: Pulse Respiration Blood pressure Weight 76/minute 18/minute 135/73 75.3 kg Height 1.575 m Jayant Jimenez MD 01/15/2025 8:38 AM Signed Summary of the things we discussed today: - Continue taking Depakote 500 mg three times a day as prescribed. - Continue taking Vimpat (lacosamide) 100 mg in the morning and 150 mg in the evening. - Continue taking vitamin D supplement as prescribed. - A rheumatology consultation will be scheduled to evaluate and manage osteoporosis. - Monitor for any new seizures or changes in health and report them to your healthcare provider. Please call my office if you have more seizures or with any seizure related concerns. Seizure precautions - No driving in the state [facility] until seizure free for 6 months. Please check with local state authorities for state specific driving regulations. - No operating heavy machines - No swimming without supervision or bathing in a bathtub due to risk of drowning in the event of a seizure. Patient may shower. - Avoid unsafe heights, including ladders, due to risk of fall-related injury in the event of a seizure. - Seizure precipitating factors discussed including not taking seizure medications as prescribed, stress, excessive caffeine intake, energy drinks, alcohol, sleep deprivation or any identifiable seizure precipitating factor. Jayant Jimenez MD Associate Staff, Epilepsy [facility] January 15, 2025 Office phone: [phone] Jayant Jimenez MD 01/15/2025 8:54 AM Signed [facility] Patient Name: Katheryn Chino Date of : 1945 ESTABLISHED EPILEPSY CLINIC NOTE 01/15/2025 8:00 AM Reason for Visit: Follow Up and Epilepsy Clinical Summary: Ms. Chino is a 79 year old female seen in [facility]. At today's visit, the patient is accompanied by: Brother EPILEPSY CLASSIFICATION Generalized Epilepsy Seizures: 1. Dialeptic Seizure 2. Generalized Tonic-Clonic Seizure Associated Conditions: - Neurological (Cerebellar ataxia) HISTORY OF PRESENT ILLNESS Handedness: Age of onset: Seizure History and Evolution Siezures began at age 46 year old and there are described as absence and GTC seizures. Started on AEDs and seizures continued to occurred. Brother does not recall previous AEDs. She continued with seizures mainly when she has no compliance with AEDs.Seizures got worse after her menstrual period began at age [age] year old. She alaways lived with her mother who helped her with AEDs, however mother 5 years ago, she started to have no compliance with AEDs . [place] and she has more suervison with AEDs now. 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 She had good seizure control for a few years until covid. Hospitaltization in Aug 2024 for a prolonged GTCS at the facility ( brother reports it lasted ~ 25 mins). Admitted to [facility] where Dilantin and Depakote levels were low. Doses were adjusted- PHT 100 mg TID and VPA 1000 mg TID. Zarontin was continued at 250 mg BID. We switched Dilantin to Lacosamide in 2023 due to breakthrough seizures, fluctuating serum levels, risk of osteroporosis. Interval Seizure History Katheryn is a 79-year-old female with a history of epilepsy, presenting for follow-up. She is accompanied by her brother, who provides additional history. Katheryn experienced a seizure in November, during which she was admitted to the hospital and diagnosed with a UTI. Per my chart review- VPA level was subtherapeutic on 12/03 and 12/04. Unclear if there were any missed doses- brother does not think so. A previous seizure occurred in October, during a period when she was transitioning from Dilantin to Vimpat and had an upper respiratory infection. Her brother notes that she feels more alert since discontinuing Dilantin. She is currently taking Depakote 500 mg three times daily, Vimpat 100 mg in the morning and 150 mg in the evening, and Zarontin 250 mg twice daily. A rescue Nayzilam spray was used during her recent seizures, but it was reportedly ineffective in stopping the episodes. Switched to Valteco She is also diagnosed with osteoporosis, with a T-score of -4.5 and a 10-year major fracture risk of 32%. She participates in physical therapy, including walking with parallel bars, which she believes helps maintain her posture. She is currently taking vitamin D. Katheryn resides in a nursing facility, where she engages in activities such as puzzles, bingo, and games. Her brother reports that the facility is well-run, with a goo (more content not included)... Normal [facility] Serum or plasma valproate me asurement (mass/volume)Ordered By: Todd Velasquez on 12-26-2024 Valproate [Mass/Vol] 91 ug/mL 50-100 [facility] Comment on above: Valproic Acid concen trations >100 ug/mL are potentially toxic. Valproate [Mass/Vol]Ordered By: Todd Velasquez on 12-26-2024 Valproic Acid (Depakene) Level 91 ug/mL 50-100 [facility] Comment on above: Valproic Acid concen trations >100 ug/mL are potentially toxic. Valproic Acid (Depakene) Lev maribell 12-26-2024 VALPROIC ACID 91 ug/mL Normal 50-100 [facility] Comment on above: Order Comment: COLLE CTOR TO SPECIFY Result Comment: Valp roic Acid concentrations >100 ug/mL are potentially toxic. Performed By: #### L 400.0001 #### [facility] [address] [place], [address] [facility] KATHERYN CHINO ([id number]) 1945 F Date Time Provider Department 12/24/24 JAYANT JIMENEZ During your visit today, we recorded the following information about you: YamseenFranchesca 12/24/2024 8:57 AM Signed ORDERS Person requesting order: [facility] Phone number: [phone] Order being requested: Facility: [facility] Patient of Dr. Jimenez Forwarded to Silvia Shelley RN 12/24/2024 2:24 PM Signed Spoke with nurse Becker at [facility]. See 12/23/24 encounter. Silvia Rogers RN Allergies As of Date: 12/24/2024 (No Known Allergies) Date Reviewed: 09/24/2024 Reviewed by: Shalini Montana LPN - Fully Assessed Reason for Visit: Orders [681] Cmt: [facility] Prescriptions as of 12/24/2024 - midazolam (NAYZILAM) 5 mg/spray (0.1 mL) nasal spray Use 1 [place] in the nose as needed for seizures lasting longer than 3 minutes for up to 90 days. May repeat dose in alternate nostril after 10 minutes based on response and tolerability. - lacosamide (VIMPAT) 150 mg tab Take 1 tablet by mouth two times a day for 180 days. - lacosamide (VIMPAT) 50 mg tab Take 1 tablet by mouth daily at bedtime for 7 days, THEN 1 tablet two times a day for 7 days. THEN 1 tablet in the morning and 2 tablets at night for 7 days. Then switch to the 100 mg tablet.. - valproic acid (DEPAKENE) 250 mg/5 mL syrup Take 10 mL by mouth three times a day. - docusate sodium (COLACE) 100 mg capsule Take by mouth. - phenytoin chewable (DILANTIN) 50 mg tablet Take 50 mg by mouth daily at bedtime. - potassium chloride (K-TAB) 10 mEq tablet Take 10 mEq by mouth once daily. - ethosuximide (ZARONTIN) 250 mg capsule Take 1 capsule by mouth two times a day. - phenytoin ER (DILANTIN) 100 mg ER capsule Take 1 capsule by mouth three times a day. - furosemide (LASIX) 20 mg tablet Take 1 tablet by mouth every Sunday, Sunday, and Sunday. - escitalopram oxalate (LEXAPRO) 20 mg tablet Take 1 tablet by mouth once daily. - levothyroxine (SYNTHROID) 50 mcg tablet Take 1 tablet by mouth daily at 6 am. - melatonin 3 mg tablet Take 1 tablet by mouth daily at bedtime. - fluticasone (FLONASE) 50 mcg/actuation nasal spray - montelukast (SINGULAIR) 10 mg tablet - magnesium hydroxide 2,400 mg/10 mL susp Take 10 mL by mouth once daily as needed. - senna (SENNA) 8.6 mg tab Take 8.6 mg by mouth twice daily. - bisacodyl (DULCOLAX) 10 mg supp 10 mg by RECTAL route once daily as needed. - sodium phosphate-sodium bisphosphate (FLEET ENEMA) enema 1 Enema by RECTAL route one time only. - Cholecalciferol, Vitamin D3, (VITAMIN D-3) 2,000 unit cap Take by mouth. - Aluminum Hydrox-Magnesium Carb (GAVISCON EXTRA STRENGTH) 254-237.5 mg/5 mL susp Take by mouth. - Light Mineral Oil-Mineral Oil (SOOTHE XP) 1-4.5 % drop Use in both eyes. - dext 70/polycarbophil/peg/NaC l (ARTIFICIAL TEAR SOLUTION OPHTHALMIC) Use in eyes. - guaifenesin/dextromethor tanner (ROBITUSSIN-DM ORAL) Take by mouth. - loratadine (CLARITIN) 10 mg tablet Take 10 mg by mouth once daily. - losartan potassium (LOSARTAN ORAL) Take 25 mg by mouth. - pantoprazole DR (PROTONIX) 40 mg tablet Take 40 mg by mouth once daily. - acetaminophen (TYLENOL) 325 mg tablet Take 650 mg by mouth every 6 hours as needed. 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/07/2018 History of long-term treatment with high-risk m*08/07/2018 Dysarthria [R47.1] 08/07/2018 Nonintractable epilepsy without status epilepti*07/29/2019 Seizure (HCC) [R56.9] 08/17/2024 Breakthrough seizure (HCC) [G40.919] 08/17/2024 Obesity, Class I, BMI 30-34.9 [E66.811] 08/18/2024 DNR (do not resuscitate) discussion [Z71.89] 08/18/2024 Goals of care, counseling/discussion [Z71.89] 08/18/2024 Encounter Status:Closed by SILVIA ROGERS on 12/24/24 [facility] Kuldip 12-23-2024 DWAYN[facility] Telephone (NE50MN) -------- KATHERYN CHINO ([id number]) 1945 F Date Time Provider Department 12/23/24 JAYANT JIMENEZ NE50MN During your visit today, we recorded the following information about you: Geri Villarreal Chandni 12/23/2024 2:21 PM Signed Medication Concern Person Calling Rosita Cornejo, from [facility], ask for Pat's nurse Name of medication Nayzilam Concern with medication Nurse states the medication did not work the last time the patient had a seizure. Wants to know if another rescue medication can be prescribed instead. Patient of Silvia Ponce RN 12/24/2024 2:23 PM Signed Spoke with nurse Rosita. Facility DON would like to try another option for seizure rescue medication other than Nayzilam spray. They state it was not effective after x2 doses for last seizure reported on 12/03. If the patient has a prolonged seizure, it takes EMS 30 minutes to arrive and they would like other rescue medication options, if possible. They agree to try Valtoco nasal spray, KLP OTD or other recommendations. LCM 100/150 VPA 500/500 Forwarded to MARIO 2 for review. MEGA Christianson Kelly, APRN.DWAYNE 12/24/2024 4:36 PM Signed We can trial Valtoco KLP ODT takes much longer to work Artis Hamilton APRN.DWAYNE 12/24/2024 4:53 PM Signed The following approved medication requests have been transmitted electronically. Requested Prescriptions Signed Prescriptions Disp Refills diazePAM (VALTOCO) 10 mg/spray (0.1 mL) nasal spray 2 Each 1 Sig: Use 1 [place] in the nose as needed for seizures lasting longer than 3 minutes. May repeat dose once after 4 hours based on response and tolerability for a maximum of 2 doses per 24-hour period. Authorizing Provider: ARTIS HAMILTON APRN.CNP Kunovich, Christina M, RN 12/25/2024 2:36 PM Signed Valtoco Rx faxed via RightFax to: [facility] PH: [phone] FAX : [phone] Confirmation received. Called the facility, spoke with Monique. They received the Valtoco Rx, facility paid $700. Silvia Rogers RN Allergies As of Date: 12/23/2024 (No Known Allergies) Date Reviewed: 09/24/2024 Reviewed by: Shalini Montana LPN - Fully Assessed Reason for Visit: Medication Problem [65] Cmt: Nayzilam - Medication Not Working Primary Visit Diagnosis:Intractable epilepsy without status epilepticus, unspecified epilepsy type ([facility]) [G40.919] Order(s):diazePAM (VALTOCO) 10 mg/spray (0.1 mL) nasal sprayUse 1 [place] in the nose as needed for seizures lasting longer than 3 minutes. May repeat dose once after 4 hours based on response and tolerability for a maximum of 2 doses per 24-hour period.Disp: 2 EachRfl: 1 Prescriptions as of 12/25/2024 - diazePAM (VALTOCO) 10 mg/spray (0.1 mL) nasal spray Use 1 [place] in the nose as needed for seizures lasting longer than 3 minutes. May repeat dose once after 4 hours based on response and tolerability for a maximum of 2 doses per 24-hour period. - lacosamide (VIMPAT) 150 mg tab Take 1 tablet by mouth two times a day for 180 days. - lacosamide (VIMPAT) 50 mg tab Take 1 tablet by mouth daily at bedtime for 7 days, THEN 1 tablet two times a day for 7 days. THEN 1 tablet in the morning and 2 tablets at night for 7 days. Then switch to the 100 mg tablet.. - valproic acid (DEPAKENE) 250 mg/5 mL syrup Take 10 mL by mouth three times a day. - docusate sodium (COLACE) 100 mg capsule Take by mouth. - phenytoin chewable (DILANTIN) 50 mg tablet Take 50 mg by mouth daily at bedtime. - potassium chloride (K-TAB) 10 mEq tablet Take 10 mEq by mouth once daily. - ethosuximide (ZARONTIN) 250 mg capsule Take 1 capsule by mouth two times a day. - phenytoin ER (DILANTIN) 100 mg ER capsule Take 1 capsule by mouth three times a day. - furosemide (LASIX) 20 mg tablet Take 1 tablet by mouth every Sunday, Sunday, and Sunday. - escitalopram oxalate (LEXAPRO) 20 mg tablet Take 1 tablet by mouth once daily. - levothyroxine (SYNTHROID) 50 mcg tablet Take 1 tablet by mouth daily at 6 am. - melatonin 3 mg tablet Take 1 tablet by mouth daily at bedtime. - fluticasone (FLONASE) 50 mcg/actuation nasal spray - montelukast (SINGULAIR) 10 mg tablet - magnesium hydroxide 2,400 mg/10 mL susp Take 10 mL by mouth once daily as needed. - senna (SENNA) 8.6 mg tab Take 8.6 mg by mouth twice daily. - bisacodyl (DULCOLAX) 10 mg supp 10 mg by RECTAL route once daily as needed. - sodium phosphate-sodium bisphosphate (FLEET ENEMA) enema 1 Enema by RECTAL route one time only. - Cholecalciferol, Vitamin D3, (VITAMIN D-3) 2,000 unit cap Take by mouth. - Aluminum Hydrox-Magnesium Carb (GAVISCON EXTRA STRENGTH) 254-237.5 mg/5 mL susp Take by mouth. - Light Mineral Oil-Mineral Oil (SOOTHE XP) 1-4.5 % drop Use in both eyes. - d (more content not included)... Normal [facility] 12-19-[address] [facility] Telephone ([id number]) -------- KATHERYN CHINO ([id number]) 1945 F Date Time Provider Department 12/19/24 JAYANT JIMENEZ NE50MN During your visit today, we recorded the following information about you: Yocasta Rivers 12/19/2024 12:37 PM Signed OUTSIDE LAB REPORT FACILITY NAME [facility] PHONE/FAX COLLECTION DATE AND TIME: 12/15/24 540 Uploaded to [facility] Silvia Rogers RN 12/19/2024 12:53 PM Signed Current LCM dose 100/150 Forwarded to [facility] [place] for review. MEGA Christianson Kelly, APRN.DWAYNE 12/19/2024 1:53 PM Signed Level WNL If she has not had further seizures since reaching 100/150 of LCM can continue dose unchanged, any seizures would increase to 150/150 Artis Hamilton APRN.Silvia Willis RN 12/24/2024 2:27 PM Signed See 12/23/24 phone encounter. Silvia Rogers RN Allergies As of Date: 12/19/2024 (No Known Allergies) Date Reviewed: 09/24/2024 Reviewed by: Shalini Montana LPN - Fully Assessed Reason for Visit: Outside Lab Results [753] Cmt: lacosamide Prescriptions as of 12/24/2024 - midazolam (NAYZILAM) 5 mg/spray (0.1 mL) nasal spray Use 1 [place] in the nose as needed for seizures lasting longer than 3 minutes for up to 90 days. May repeat dose in alternate nostril after 10 minutes based on response and tolerability. - lacosamide (VIMPAT) 150 mg tab Take 1 tablet by mouth two times a day for 180 days. - lacosamide (VIMPAT) 50 mg tab Take 1 tablet by mouth daily at bedtime for 7 days, THEN 1 tablet two times a day for 7 days. THEN 1 tablet in the morning and 2 tablets at night for 7 days. Then switch to the 100 mg tablet.. - valproic acid (DEPAKENE) 250 mg/5 mL syrup Take 10 mL by mouth three times a day. - docusate sodium (COLACE) 100 mg capsule Take by mouth. - phenytoin chewable (DILANTIN) 50 mg tablet Take 50 mg by mouth daily at bedtime. - potassium chloride (K-TAB) 10 mEq tablet Take 10 mEq by mouth once daily. - ethosuximide (ZARONTIN) 250 mg capsule Take 1 capsule by mouth two times a day. - phenytoin ER (DILANTIN) 100 mg ER capsule Take 1 capsule by mouth three times a day. - furosemide (LASIX) 20 mg tablet Take 1 tablet by mouth every Sunday, Sunday, and Sunday. - escitalopram oxalate (LEXAPRO) 20 mg tablet Take 1 tablet by mouth once daily. - levothyroxine (SYNTHROID) 50 mcg tablet Take 1 tablet by mouth daily at 6 am. - melatonin 3 mg tablet Take 1 tablet by mouth daily at bedtime. - fluticasone (FLONASE) 50 mcg/actuation nasal spray - montelukast (SINGULAIR) 10 mg tablet - magnesium hydroxide 2,400 mg/10 mL susp Take 10 mL by mouth once daily as needed. - senna (SENNA) 8.6 mg tab Take 8.6 mg by mouth twice daily. - bisacodyl (DULCOLAX) 10 mg supp 10 mg by RECTAL route once daily as needed. - sodium phosphate-sodium bisphosphate (FLEET ENEMA) enema 1 Enema by RECTAL route one time only. - Cholecalciferol, Vitamin D3, (VITAMIN D-3) 2,000 unit cap Take by mouth. - Aluminum Hydrox-Magnesium Carb (GAVISCON EXTRA STRENGTH) 254-237.5 mg/5 mL susp Take by mouth. - Light Mineral Oil-Mineral Oil (SOOTHE XP) 1-4.5 % drop Use in both eyes. - dext 70/polycarbophil/peg/NaC l (ARTIFICIAL TEAR SOLUTION OPHTHALMIC) Use in eyes. - guaifenesin/dextromethor tanner (ROBITUSSIN-DM ORAL) Take by mouth. - loratadine (CLARITIN) 10 mg tablet Take 10 mg by mouth once daily. - losartan potassium (LOSARTAN ORAL) Take 25 mg by mouth. - pantoprazole DR (PROTONIX) 40 mg tablet Take 40 mg by mouth once daily. - acetaminophen (TYLENOL) 325 mg tablet Take 650 mg by mouth every 6 hours as needed. 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 COMMENT Normal . [facility] Comment on above: Order Comment: 211-2 Result Comment: Test Ordered: [id number] Lacosamide Test(s) 721682-Rsumcoxlfo was developed and its performance characteristics determined by [facility]. It has not been cleared or approved by the Food and Drug Administration. Lacosamide 4.6 [L ] ug/mL Reference Range: 5.0-10.0 Limit of Detection 0.5 Mean plasma concentrations following maintenance dose 200 mg/day 4.99 +/- 2.51 ug/mL 400 mg/day 9.35 +/- 4.22 ug/mL 600 mg/day 12.46 +/- 5.60 ug/mL Performed at: [address] [id number] Recorder Of Deeds: Nahed Naidu MD, Phone: [phone] Performed at: [address] [id number] Recorder Of Deeds: Haris Peraza PhD, Phone: [phone] Performed By: #### L 100.0100, L501.8100, L501.7700, L500.6948 #### [facility] [address] [place] [address]. [place], [address] BUN/creatinine ratioOrdered By: Todd Velasquez on 12-15-2024 Urea nitrogen/Creatinine [Mass ratio] 17.8 mg/mg 10-20 [facility] Bilirubin, totalOrdered By: Todd Velasquez on 12-15-2024 Bilirubin [Mass/Vol] 0.24 mg/dL 0.00-1.30 [facility] CBC-Complete Blood Cnt No Di ffon 12-15-2024 Erythrocyte distribution width (RBC) [Ratio] 13.6 % Normal 11.6-14.6 [facility] Comment on above: Order Comment: 211-2 Performed By: #### L 100.0100, L501.8100, L501.7700, L500.4050 #### [facility] [address] [place], [address] Hematocrit (Bld) [Volume fraction] 31.6 % Low 37-47 [facility] Comment on above: Order Comment: 211-2 Performed By: #### L 100.0100, L501.8100, L501.7700, L500.4050 #### [facility] [address] [place], [address] Hemoglobin (Bld) [Mass/Vol] 9.8 g/dL Low 12.0-15.0 [facility] Comment on above: Order Comment: 211-2 Performed By: #### L 100.0100, L501.8100, L501.7700, L500.4050 #### [facility] [address] [place], [address] MCH (RBC) [Entitic mass] 28.2 pg Normal 27.0-32.0 [facility] Comment on above: Order Comment: 211-2 Performed By: #### L 100.0100, L501.8100, L501.7700, L500.4050 #### [facility] [address] [place], [address] MCHC (RBC) [Mass/Vol] 31.0 g/dL Low 32-36 [facility] Comment on above: Order Comment: 211-2 Performed By: #### L 100.0100, L501.8100, L501.7700, L500.4050 #### [facility] [address] [place], [address] MCV (RBC) [Entitic vol] 91.1 fL Normal 81-99 [facility] Comment on above: Order Comment: 211-2 Performed By: #### L 100.0100, L501.8100, L501.7700, L500.4050 #### [facility] [address] [place], [address] Platelet mean volume (Bld) [Entitic vol] 12.7 fL High 6.2-12.0 [facility] Comment on above: Order Comment: 211-2 Performed By: #### L 100.0100, L501.8100, L501.7700, L500.4050 #### [facility] [address] [place], [address] Platelets (Bld) [#/Vol] 194 10*3/uL Normal 150-450 [facility] Comment on above: Order Comment: 211-2 Performed By: #### L 100.0100, L501.8100, L501.7700, L500.4050 #### [facility] [address] [place], [address] RBC (Bld) [#/Vol] 3.47 10*6/uL Low 4.2-5.4 [facility] Comment on above: Order Comment: 211-2 Performed By: #### L 100.0100, L501.8100, L501.7700, L500.4050 #### [facility] [address] [place], [address] RDW SD 45.2 fl High 35.1-43.9 [facility] Comment on above: Order Comment: 211-2 Performed By: #### L 100.0100, L501.8100, L501.7700, L500.4050 #### [facility] [address] [place], [address] WBC (Bld) [#/Vol] 7.1 10*3/uL Normal 4.4-11.0 [facility] Comment on above: Order Comment: 211-2 Performed By: #### L 100.0100, L501.8100, L501.7700, L500.4050 #### [facility] [address] [place], [address] Carbon dioxide measurementOr dered By: Todd Velasquez on 12-15-2024 CO2 [Moles/Vol] 23.3 mmol/L 22.0-29.0 [facility] Chloride measurementOrdered By: Todd Velasquez on 12-15-2024 Chloride [Moles/Vol] 105 mmol/L 96-108 [facility] Comprehensive Metabolic Prof ilon 12-15-2024 Albumin [Mass/Vol] 3.8 g/dL Normal 3.4-4.8 [facility] Comment on above: Order Comment: 211-2 Performed By: #### L 100.0100, L501.8100, L501.7700, L500.4050 #### [facility] [address] [place], [address] Albumin/Globulin [Mass ratio] 1.3 {ratio} Normal 0.9-2.4 [facility] Comment on above: Order Comment: 211-2 Performed By: #### L 100.0100, L501.8100, L501.7700, L500.4050 #### [facility] [address] [place], [address] ALK PHOS 121 U/L High 35-104 [facility] Comment on above: Order Comment: 211-2 Performed By: #### L 100.0100, L501.8100, L501.7700, L500.4050 #### [facility] [address] [place], [address] ALT [Catalytic activity/Vol] 16 U/L Normal <=34 [facility] Comment on above: Order Comment: 211-2 Performed By: #### L 100.0100, L501.8100, L501.7700, L500.4050 #### [facility] [address] [place], [address] Anion gap [Moles/Vol] 9 mmol/L Normal 5-15 [facility] Comment on above: Order Comment: 211-2 Performed By: #### L 100.0100, L501.8100, L501.7700, L500.4050 #### [facility] [address] [place], [address] AST [Catalytic activity/Vol] 28 U/L Normal <=31 [facility] Comment on above: Order Comment: 211-2 Performed By: #### L 100.0100, L501.8100, L501.7700, L500.4050 #### [facility] [address] [place], [address] Bilirubin [Mass/Vol] 0.24 mg/dL Normal 0.00-1.30 [facility] Comment on above: Order Comment: 211-2 Performed By: #### L 100.0100, L501.8100, L501.7700, L500.4050 #### [facility] [address] [place], [address] BUN/CRE 17.8 RATIO Normal 10-20 [facility] Comment on above: Order Comment: 211-2 Performed By: #### L 100.0100, L501.8100, L501.7700, L500.4050 #### [facility] [address] [place], [address] Calcium [Mass/Vol] 9.1 mg/dL Normal 7.6-11.0 [facility] Comment on above: Order Comment: 211-2 Performed By: #### L 100.0100, L501.8100, L501.7700, L500.4050 #### [facility] [address] [place], [address] Chloride [Moles/Vol] 105 mmol/L Normal 96-108 [facility] Comment on above: Order Comment: 211-2 Performed By: #### L 100.0100, L501.8100, L501.7700, L500.4050 #### [facility] [address] [place], [address] CO2 [Moles/Vol] 23.3 mmol/L Normal 22.0-29.0 [facility] Comment on above: Order Comment: 211-2 Performed By: #### L 100.0100, L501.8100, L501.7700, L500.4050 #### [facility] [address] [place], [address] Creatinine [Mass/Vol] 0.61 mg/dL Low 0.70-1.20 [facility] Comment on above: Order Comment: 211-2 Performed By: #### L 100.0100, L501.8100, L501.7700, L500.4050 #### [facility] [address] [place], [address] GFR/1.73 sq M.predicted among non-blacks MDRD (S/P/Bld) [Vol rate/Area] 92 mL/min/{1.73_m2} Normal >60 [facility] Comment on above: Order Comment: 2 Result Comment: mL/m in/1.73m2 CKD-EPI Creatinine Equation (2020) Performed By: #### L 100.0100, L501.8100, L501.7700, L500.4050 #### [facility] [address] [place], [address] Globulin (S) [Mass/Vol] 3.0 g/dL Normal 2.2-4.2 [facility] Comment on above: Order Comment: 211-2 Performed By: #### L 100.0100, L501.8100, L501.7700, L500.4050 #### [facility] [address] [place], [address] Glucose [Mass/Vol] 90 mg/dL Normal 70-99 [facility] Comment on above: Order Comment: 211-2 Performed By: #### L 100.0100, L501.8100, L501.7700, L500.4050 #### [facility] [address] [place], [address] Potassium [Moles/Vol] 4.8 mmol/L Normal 3.3-5.1 [facility] Comment on above: Order Comment: 211-2 Performed By: #### L 100.0100, L501.8100, L501.7700, L500.4050 #### [facility] [address] [place], [address] Sodium [Moles/Vol] 137 mmol/L Normal 133-145 [facility] Comment on above: Order Comment: 211-2 Performed By: #### L 100.0100, L501.8100, L501.7700, L500.4050 #### [facility] [address] [place], [address] T PROT 6.8 g/dL Normal 5.9-8.4 [facility] Comment on above: Order Comment: 211-2 Performed By: #### L 100.0100, L501.8100, L501.7700, L500.4050 #### [facility] [address] [place], [address] Urea nitrogen [Mass/Vol] 11 mg/dL Normal 4-19 [facility] Comment on above: Order Comment: 211-2 Performed By: #### L 100.0100, L501.8100, L501.7700, L500.4050 #### [facility] [address] [place], [address] Erythrocyte distribution wid th (RBC) [Ratio]Ordered By: Todd Velasquez on 12-15-2024 Erythrocyte distribution width (RBC) [Entitic vol] 45.2 fL High 35.1-43.9 [facility] Erythrocyte distribution wid th ratioOrdered By: Todd Velasquez on 12-15-2024 Erythrocyte distribution width (RBC) [Ratio] 13.6 % 11.6-14.6 [facility] Erythrocyte distribution wid th standard deviationOrdered By: Todd Velasquez on 12-15-2024 Erythrocyte distribution width (RBC) [Ratio] 45.2 fl High 35.1-43.9 [facility] GFR/1.73 sq M.predicted miguel g non-blacks MDRD (S/P/Bld) [Vol rate/Area]Ordered By: Todd Velasquez on 12-15-2024 Estimated GFR (MDRD) Non-Af Amer 92 >60 [facility] Comment on above: mL/min/1.73m2 CKD-EP I Creatinine Equation (2020) Glomerular filtration rate ( GFR) estimation/1.73 sq m using serum, plasma, or whole bOrdered By: Todd Velasquez on 12-15-2024 GFR/1.73 sq M.predicted among non-blacks MDRD (S/P/Bld) [Vol rate/Area] 92 mL/min/{1.73_m2} >60 [facility] Comment on above: mL/min/1.73m2 CKD-EP I Creatinine Equation (2020) Hematocrit Auto (Bld) [Volum e fraction]Ordered By: Todd Velasquez on 12-15-2024 Hematocrit (Bld) [Volume fraction] 31.6 % Low 37-47 [facility] Hemoglobin measurementOrdere d By: Todd Velasquez on 12-15-2024 Hemoglobin (Bld) [Mass/Vol] 9.8 g/dL Low 12.0-15.0 [facility] - Chemistry and C hemistry - challengeOrdered By: Todd Velasquez on 12-15-2024 AST [Catalytic activity/Vol] 28 U/L <32 [facility] MCV (mean corpuscular volume ) determinationOrdered By: Todd Velasquez on 12-15-2024 MCV (RBC) [Entitic vol] 91.1 fL 81-99 [facility] Mean corpuscular hemoglobin (MCH) determinationOrdered By: Todd Velasquez on 12-15-2024 MCH (RBC) [Entitic mass] 28.2 pg 27.0-32.0 [facility] Mean corpuscular hemoglobin concentration (MCHC) determinationOrdered By: Todd Velasquez on 12-15-2024 MCHC (RBC) [Mass/Vol] 31.0 g/dL Low 32-36 [facility] Mean platelet volume determi nationOrdered By: Todd Velasquez on 12-15-2024 Platelet mean volume (Bld) [Entitic vol] 12.7 fL High 6.2-12.0 [facility] Platelet countOrdered By: Whitley on 12-15-2024 Platelets (Bld) [#/Vol] 194 10*3/uL 150-450 [facility] RBC Auto (Bld) [#/Vol]Ordere d By: Todd Velasquez on 12-15-2024 RBC (Bld) [#/Vol] 3.47 10*6/uL Low 4.2-5.4 [facility] Serum creatinine measurement (mass/volume)Ordered By: Todd Velasquez on 12-15-2024 Creatinine [Mass/Vol] 0.61 mg/dL Low 0.70-1.20 [facility] Serum globulin measurementOr dered By: Todd Velasquez on 12-15-2024 Globulin (S) [Mass/Vol] 3.0 g/dL 2.2-4.2 [facility] Serum glucose measurement (m ass/volume)Ordered By: Todd Velasquez on 12-15-2024 Glucose [Mass/Vol] 90 mg/dL 70-99 [facility] Serum or plasma alanine ignacio otransferase (ALT) measurementOrdered By: Todd Velasquez on 12-15-2024 ALT [Catalytic activity/Vol] 16 U/L <35 [facility] Serum or plasma albumin jacob urement (mass/volume)Ordered By: Todd Velasquez on 12-15-2024 Albumin [Mass/Vol] 3.8 g/dL 3.4-4.8 [facility] Serum or plasma albumin/glob ulin mass ratioOrdered By: Todd Velasquez on 12-15-2024 Albumin/Globulin [Mass ratio] 1.3 {ratio} 0.9-2.4 [facility] Serum or plasma alkaline phillip sphatase measurementOrdered By: Todd Velasquez on 12-15-2024 ALP [Catalytic activity/Vol] 121 U/L High 35-104 [facility] Serum or plasma anion gap de termination (moles/volume)Ordered By: Todd Velasquez on 12-15-2024 Anion gap [Moles/Vol] 9 mmol/L 5-15 [facility] Serum or plasma calcium jacob urement (mass/volume)Ordered By: Todd Velasquez on 12-15-2024 Calcium [Mass/Vol] 9.1 mg/dL 7.6-11.0 [facility] Serum or plasma potassium me asurementOrdered By: Todd Velasquez on 12-15-2024 Potassium [Moles/Vol] 4.8 mmol/L 3.3-5.1 [facility] Serum or plasma sodium measu rement (moles/volume)Ordered By: Todd Velasquez on 12-15-2024 Sodium [Moles/Vol] 137 mmol/L 133-145 [facility] Serum or plasma urea nitroge n measurement (mass/volume)Ordered By: Todd Velasquez on 12-15-2024 Urea nitrogen [Mass/Vol] 11 mg/dL 4-19 [facility] Serum or plasma valproate me asurement (mass/volume)Ordered By: Todd Velasquez on 12-15-2024 Valproate [Mass/Vol] 40 ug/mL Low 50-100 [facility] Comment on above: Valproic Acid concen trations >100 ug/mL are potentially toxic. TSH DL <= 0.005 mIU/L QnOrde red By: Todd Velasquez on 12-15-2024 Thyroid Stimulating Hormone (TSH) 4.640 uIU/mL High 0.300-4.200 [facility] TSH Qn 4.640 uIU/mL High 0.300-4.200 [facility] Thyroid Stim Hormone (TSH)on 12-15-2024 TSH 4.640 uIU/mL High 0.300-4.200 [facility] Comment on above: Order Comment: 211-2 Performed By: #### L 100.0100, L501.8100, L501.7700, L500.4050 #### [facility] [address] [place], [place], [id number] Total proteinOrdered By: Ignacia Velasquez on 12-15-2024 Protein [Mass/Vol] 6.8 g/dL 5.9-8.4 [facility] Valproate [Mass/Vol]Ordered By: Todd Velasquez on 12-15-2024 Valproic Acid (Depakene) Level 40 ug/mL Low 50-100 [facility] Comment on above: Valproic Acid concen trations >100 ug/mL are potentially toxic. Valproic Acid (Depakene) Lev maribell 12-15-2024 VALPROIC ACID 40 ug/mL Low 50-100 [facility] Comment on above: Order Comment: Result Comment: Valp roic Acid concentrations >100 ug/mL are potentially toxic. Performed By: #### L 100.0100, L501.8100, L501.7700, L500.4050 #### [facility] [address] [place], [address] White blood cell (WBC) count Ordered By: Todd Velasquez on 12-15-2024 WBC (Bld) [#/Vol] 7.1 10*3/uL 4.4-11.0 [facility] BUN/creatinine ratioOrdered By: Todd Velasquez on 12-10-2024 Urea nitrogen/Creatinine [Mass ratio] 20.4 mg/mg High 10-20 [facility] Bilirubin, totalOrdered By: Todd Velasquez on 12-10-2024 Bilirubin [Mass/Vol] 0.21 mg/dL 0.00-1.30 [facility] CBC-Complete Blood Cnt No Di ffon 12-10-2024 Erythrocyte distribution width (RBC) [Ratio] 13.2 % Normal 11.6-14.6 [facility] Comment on above: Order Comment: COLLE CTOR TO SPECIFY Performed By: #### L 400.0001 #### [facility] [address] [place], [address] Hematocrit (Bld) [Volume fraction] 31.1 % Low 37-47 [facility] Comment on above: Order Comment: MEGHAN CTOR TO SPECIFY Performed By: #### L 400.0001 #### [facility] [address] [place], [address] Hemoglobin (Bld) [Mass/Vol] 10.1 g/dL Low 12.0-15.0 [facility] Comment on above: Order Comment: MEGHAN CTOR TO SPECIFY Performed By: #### L 400.0001 #### [facility] [address] [place], [address] MCH (RBC) [Entitic mass] 28.9 pg Normal 27.0-32.0 [facility] Comment on above: Order Comment: MEGHAN CTOR TO SPECIFY Performed By: #### L 400.0001 #### [facility] [address] [place], [address] MCHC (RBC) [Mass/Vol] 32.5 g/dL Normal 32-36 [facility] Comment on above: Order Comment: MEGHAN CTOR TO SPECIFY Performed By: #### L 400.0001 #### [facility] [address] [place], [address] MCV (RBC) [Entitic vol] 89.1 fL Normal 81-99 [facility] Comment on above: Order Comment: MEGHAN CTOR TO SPECIFY Performed By: #### L 400.0001 #### [facility] [address] [place], [address] Platelet mean volume (Bld) [Entitic vol] 11.9 fL Normal 6.2-12.0 [facility] Comment on above: Order Comment: MEGHAN CTOR TO SPECIFY Performed By: #### L 400.0001 #### [facility] [address] [place], [address] Platelets (Bld) [#/Vol] 177 10*3/uL Normal 150-450 [facility] Comment on above: Order Comment: COLLE CTOR TO SPECIFY Performed By: #### L 400.0001 #### [facility] [address] [place], [address] RBC (Bld) [#/Vol] 3.49 10*6/uL Low 4.2-5.4 [facility] Comment on above: Order Comment: MEGHAN CTOR TO SPECIFY Performed By: #### L 400.0001 #### [facility] [address] [place], [address] RDW SD 43.0 fl Normal 35.1-43.9 [facility] Comment on above: Order Comment: MEGHAN CTOR TO SPECIFY Performed By: #### L 400.0001 #### [facility] [address] [place], [address] WBC (Bld) [#/Vol] 6.6 10*3/uL Normal 4.4-11.0 [facility] Comment on above: Order Comment: MEGHAN CTOR TO SPECIFY Performed By: #### L 400.0001 #### [facility] [address] [place], [address] Carbon dioxide measurementOr dered By: Todd Velasquez on 12-10-2024 CO2 [Moles/Vol] 24.4 mmol/L 22.0-29.0 [facility] Chloride measurementOrdered By: Todd Velasquez on 12-10-2024 Chloride [Moles/Vol] 105 mmol/L 96-108 [facility] Comprehensive Metabolic Prof ilon 12-10-2024 Albumin [Mass/Vol] 3.6 g/dL Normal 3.4-4.8 [facility] Comment on above: Order Comment: MEGHAN CTOR TO SPECIFY Performed By: #### L 400.0001 #### [facility] [address] [place], [address] Albumin/Globulin [Mass ratio] 1.3 {ratio} Normal 0.9-2.4 [facility] Comment on above: Order Comment: COLLE CTOR TO SPECIFY Performed By: #### L 400.0001 #### [facility] [address] [place], [address] ALK PHOS 118 U/L High 35-104 [facility] Comment on above: Order Comment: COLLE CTOR TO SPECIFY Performed By: #### L 400.0001 #### [facility] [address] [place], [address] ALT [Catalytic activity/Vol] 14 U/L Normal <=34 [facility] Comment on above: Order Comment: COLLE CTOR TO SPECIFY Performed By: #### L 400.0001 #### [facility] Laboratory [address] [place], [address] Anion gap [Moles/Vol] 11 mmol/L Normal 5-15 [facility] Comment on above: Order Comment: COLLE CTOR TO SPECIFY Performed By: #### L 400.0001 #### [facility] [address] [place], [address] AST [Catalytic activity/Vol] 34 U/L High <=31 [facility] Comment on above: Order Comment: COLLE CTOR TO SPECIFY Performed By: #### L 400.0001 #### [facility] [address] [place], [address] Bilirubin [Mass/Vol] 0.21 mg/dL Normal 0.00-1.30 [facility] Comment on above: Order Comment: COLLE CTOR TO SPECIFY Performed By: #### L 400.0001 #### [facility] [address] [place], [address] BUN/CRE 20.4 RATIO High 10-20 [facility] Comment on above: Order Comment: COLLE CTOR TO SPECIFY Performed By: #### L 400.0001 #### [facility] [address] [place], [address] Calcium [Mass/Vol] 8.9 mg/dL Normal 7.6-11.0 [facility] Comment on above: Order Comment: MEGHAN CTOR TO SPECIFY Performed By: #### L 400.0001 #### [facility] [address] [place], [address] Chloride [Moles/Vol] 105 mmol/L Normal 96-108 [facility] Comment on above: Order Comment: MEGHAN CTOR TO SPECIFY Performed By: #### L 400.0001 #### [facility] [address] [place], [address] CO2 [Moles/Vol] 24.4 mmol/L Normal 22.0-29.0 [facility] Comment on above: Order Comment: MEGHAN CTOR TO SPECIFY Performed By: #### L 400.0001 #### [facility] [address] [place], [address] Creatinine [Mass/Vol] 0.6 mg/dL Normal 0.6-1.0 [facility] Comment on above: Order Comment: MEGHAN CTOR TO SPECIFY Performed By: #### L 400.0001 #### [facility] [address] [place], [address] GFR/1.73 sq M.predicted among non-blacks MDRD (S/P/Bld) [Vol rate/Area] 95 mL/min/{1.73_m2} Normal >60 [facility] Comment on above: Order Comment: MEGHAN CTOR TO SPECIFY Result Comment: mL/m in/1.73m2 CKD-EPI Creatinine Equation (2020) Performed By: #### L 400.0001 #### [facility] [address] [place], [address] Globulin (S) [Mass/Vol] 2.7 g/dL Normal 2.2-4.2 [facility] Comment on above: Order Comment: MEGHAN CTOR TO SPECIFY Performed By: #### L 400.0001 #### [facility] [address] [place] [place], [address] Glucose [Mass/Vol] 92 mg/dL Normal 70-99 [facility] Comment on above: Order Comment: MEGHAN CTOR TO SPECIFY Performed By: #### L 400.0001 #### [facility] [address] [place], [address] Potassium [Moles/Vol] 4.1 mmol/L Normal 3.3-5.1 [facility] Comment on above: Order Comment: MEGHAN CTOR TO SPECIFY Performed By: #### L 400.0001 #### [facility] [address] [place], [address] Sodium [Moles/Vol] 140 mmol/L Normal 133-145 [facility] Comment on above: Order Comment: MEGHAN CTOR TO SPECIFY Performed By: #### L 400.0001 #### [facility] [address] [place], [address] T PROT 6.3 g/dL Normal 5.9-8.4 [facility] Comment on above: Order Comment: MEGHAN CTOR TO SPECIFY Performed By: #### L 400.0001 #### [facility] [address] [place], [address] Urea nitrogen [Mass/Vol] 11 mg/dL Normal 4-19 [facility] Comment on above: Order Comment: MEGHAN CTOR TO SPECIFY Performed By: #### L 400.0001 #### [facility] [address] [place], [address] Creatinine [Moles/Vol]Ordere d By: Todd Velasquez on 12-10-2024 Creatinine [Mass/Vol] 0.6 mg/dL 0.6-1.0 [facility] Erythrocyte distribution wid th (RBC) [Ratio]Ordered By: Todd Velasquez on 12-10-2024 Erythrocyte distribution width (RBC) [Entitic vol] 43.0 fL 35.1-43.9 [facility] Erythrocyte distribution wid th ratioOrdered By: Todd Velasquez on 12-10-2024 Erythrocyte distribution width (RBC) [Ratio] 13.2 % 11.6-14.6 [facility] Erythrocyte distribution wid th standard deviationOrdered By: Todd Velasquez on 12-10-2024 Erythrocyte distribution width (RBC) [Ratio] 43.0 fl 35.1-43.9 [facility] GFR/1.73 sq M.predicted miguel g non-blacks MDRD (S/P/Bld) [Vol rate/Area]Ordered By: Todd Velasquez on 12-10-2024 Estimated GFR (MDRD) Non-Af Amer 95 >60 [facility] Comment on above: mL/min/1.73m2 CKD-EP I Creatinine Equation (2020) Glomerular filtration rate ( GFR) estimation/1.73 sq m using serum, plasma, or whole bOrdered By: Todd Velasquez on 12-10-2024 GFR/1.73 sq M.predicted among non-blacks MDRD (S/P/Bld) [Vol rate/Area] 95 mL/min/{1.73_m2} >60 [facility] Comment on above: mL/min/1.73m2 CKD-EP I Creatinine Equation (2020) Hematocrit Auto (Bld) [Volum e fraction]Ordered By: Todd Velasquez on 12-10-2024 Hematocrit (Bld) [Volume fraction] 31.1 % Low 37-47 [facility] Hemoglobin measurementOrdere d By: Todd Velasquez on 12-10-2024 Hemoglobin (Bld) [Mass/Vol] 10.1 g/dL Low 12.0-15.0 [facility] - Chemistry and C hemistry - challengeOrdered By: Todd Velasquez on 12-10-2024 AST [Catalytic activity/Vol] 34 U/L High <32 [facility] MCV (mean corpuscular volume ) determinationOrdered By: Todd Velasquez on 12-10-2024 MCV (RBC) [Entitic vol] 89.1 fL 81-99 [facility] Mean corpuscular hemoglobin (MCH) determinationOrdered By: Todd Velasquez on 12-10-2024 MCH (RBC) [Entitic mass] 28.9 pg 27.0-32.0 [facility] Mean corpuscular hemoglobin concentration (MCHC) determinationOrdered By: Todd Velasquez on 12-10-2024 MCHC (RBC) [Mass/Vol] 32.5 g/dL 32-36 [facility] Mean platelet volume determi nationOrdered By: Todd Velasquez on 12-10-2024 Platelet mean volume (Bld) [Entitic vol] 11.9 fL 6.2-12.0 [facility] Platelet countOrdered By: Whitley on 12-10-2024 Platelets (Bld) [#/Vol] 177 10*3/uL 150-450 [facility] RBC Auto (Bld) [#/Vol]Ordere d By: Todd Velasquez on 12-10-2024 RBC (Bld) [#/Vol] 3.49 10*6/uL Low 4.2-5.4 [facility] Serum globulin measurementOr dered By: Todd Velasquez on 12-10-2024 Globulin (S) [Mass/Vol] 2.7 g/dL 2.2-4.2 [facility] Serum glucose measurement (m ass/volume)Ordered By: Todd Velasquez on 12-10-2024 Glucose [Mass/Vol] 92 mg/dL 70-99 [facility] Serum or plasma alanine ignacio otransferase (ALT) measurementOrdered By: Todd Velasquez on 12-10-2024 ALT [Catalytic activity/Vol] 14 U/L <35 [facility] Serum or plasma albumin jacob urement (mass/volume)Ordered By: Todd Velasquez on 12-10-2024 Albumin [Mass/Vol] 3.6 g/dL 3.4-4.8 [facility] Serum or plasma albumin/glob ulin mass ratioOrdered By: Todd Velasquez on 12-10-2024 Albumin/Globulin [Mass ratio] 1.3 {ratio} 0.9-2.4 [facility] Serum or plasma alkaline phillip sphatase measurementOrdered By: Todd Velasquez on 12-10-2024 ALP [Catalytic activity/Vol] 118 U/L High 35-104 [facility] Serum or plasma anion gap de termination (moles/volume)Ordered By: Todd Velasquez on 12-10-2024 Anion gap [Moles/Vol] 11 mmol/L 5-15 [facility] Serum or plasma calcium jacob urement (mass/volume)Ordered By: Todd Velasquez on 12-10-2024 Calcium [Mass/Vol] 8.9 mg/dL 7.6-11.0 [facility] Serum or plasma creatinine m easurement (moles/volume)Ordered By: Todd Velasquez on 12-10-2024 Creatinine [Moles/Vol] 0.6 mg/dL 0.6-1.0 [facility] Serum or plasma potassium me asurementOrdered By: Todd Velasquez on 12-10-2024 Potassium [Moles/Vol] 4.1 mmol/L 3.3-5.1 [facility] Serum or plasma sodium measu rement (moles/volume)Ordered By: Todd Velasquez on 12-10-2024 Sodium [Moles/Vol] 140 mmol/L 133-145 [facility] Serum or plasma urea nitroge n measurement (mass/volume)Ordered By: Todd Velasquez on 12-10-2024 Urea nitrogen [Mass/Vol] 11 mg/dL 4-19 [facility] Total proteinOrdered By: Ignacia Velasquez on 12-10-2024 Protein [Mass/Vol] 6.3 g/dL 5.9-8.4 [facility] White blood cell (WBC) count Ordered By: Todd Velasquez on 12-10-2024 WBC (Bld) [#/Vol] 6.6 10*3/uL 4.4-11.0 [facility] 30on 12-08-2024 30 Problem: Knowledge Deficit Goal: Patient/family/caregiver demonstrates understanding of disease process, treatment plan, medications, and discharge instructions Outcome: Completed Problem: Potential for Compromised Skin Integrity Goal: Skin Integrity is Maintained or Improved Outcome: Completed Goal: Nutritional status is improving Outcome: Completed Problem: Urinary Incontinence Goal: Perineal skin integrity is maintained or improved Outcome: Completed Problem: Problem Interventions Goal: Assess Nutritional Intake Outcome: Completed [facility] 30 Problem: Knowledge Deficit Goal: Patient/family/caregiver demonstrates understanding of disease process, treatment plan, medications, and discharge instructions Outcome: Completed Problem: Potential for Compromised Skin Integrity Goal: Skin Integrity is Maintained or Improved Outcome: Completed Goal: Nutritional status is improving Outcome: Completed Problem: Urinary Incontinence Goal: Perineal skin integrity is maintained or improved Outcome: Completed Problem: Problem Interventions Goal: Assess Nutritional Intake Outcome: Completed Normal [facility] 30 Problem: Knowledge Deficit Goal: Patient/family/caregiver demonstrates understanding of disease process, treatment plan, medications, and discharge instructions Outcome: Progressing Problem: Potential for Compromised Skin Integrity Goal: Skin Integrity is Maintained or Improved Outcome: Progressing Goal: Nutritional status is improving Outcome: Progressing Problem: Urinary Incontinence Goal: Perineal skin integrity is maintained or improved Outcome: Progressing Problem: Problem Interventions Goal: Assess Nutritional Intake Outcome: Progressing Normal [facility] [id number] 12-08-2024 [id number] Next Site of Care Admission Date: 12/03/2024 06:35 PM Patient Name: KATHERYN CHINO Location: [address] [id number] A Date of : 1945 -------- Placement Information -------- Referral Type:Senior Care/SNF - Return Referral ID:[id number] [facility] Address 1:[address] Address 2: City:[place] Selection Factors:Returning to Facility State:[place] [facility] [phone] MAR & Discharge med list transmitted to SNF Return - [facility] via [employer] per TCC request. Electronically signed by NARGIS Mccain [facility] [phone] Transport requested in Roundtrip. Awaiting time confirmation. Confirmed pickup time of 3:00 by transport company [employer] at phone number . Location of facility drop off is [facility]. Facility notified via [employer], Martine Glasgow notified on secure chat. [facility] [phone] Pt is stable for DC to return to [facility] SNF. [facility] tasked to arrange transport and to send DC notes/MAR to SNF. Transport arranged for 3:00 today. Pt's brother called, Danny [phone], updates given. [facility] BASIC METABOLIC PANELon 11-16 Anion gap [Moles/Vol] 6 mmol/L Normal 3-13 [facility] Comment on above: Performed By: #### L [id number], [id number] #### Solar Design Engineer: JACKI MANCILLA ([id number]) [facility] ([facility]) [address] [place] [address] Calcium [Mass/Vol] 8.7 mg/dL Low 8.8-10.0 [facility] Comment on above: Performed By: #### L [id number], [id number] #### Solar Design Engineer: JACKI MANCILLA ([id number]) [facility] [address] [place] [address] Chloride [Moles/Vol] 108 mmol/L High 98-107 [facility] Comment on above: Performed By: #### L [id number], [id number] #### Solar Design Engineer: JACKI MANCILLA ([id number]) [facility] [address] [place] [address] CO2 [Moles/Vol] 26 mmol/L Normal 23-31 [facility] Comment on above: Performed By: #### L [id number], [id number] #### Solar Design Engineer: JACKI MANCILLA ([id number]) [facility] [address] [place] [address] Creatinine [Mass/Vol] 0.64 mg/dL Normal 0.57-1.11 [facility] Comment on above: Performed By: #### L [id number], [id number] #### Solar Design Engineer: JACKI MANCILLA ([id number]) [facility]) [address] [place] [address] GLOMERULAR FILTRATION RATE ML/MIN/1.73 SQ M.PREDICTED >90.0 Normal >60.0 [facility] Comment on above: Result Comment: Calc ulation based on the Chronic Kidney Disease Epidemiology Collaboration (CKD-EPI) equation refit without adjustment for race Performed By: #### L [id number], [id number] #### Solar Design Engineer: JACKI MANCILLA ([id number]) [facility]) [address] [place] [address] Glucose [Mass/Vol] 87 mg/dL Normal 82-115 [facility] Comment on above: Performed By: #### L AB239, [id number] #### Solar Design Engineer: JACKI MANCILLA ([id number]) [facility] [address] [place] [address] Potassium [Moles/Vol] 3.9 mmol/L Normal 3.5-5.1 [facility] Comment on above: Result Comment: [facility] potassium values may be up to 0.5 mmol/L lower than serum values. Performed By: #### L AB239, [id number] #### Solar Design Engineer: JACKI MANCILLA ([id number]) [facility] [address] [place] [address] Sodium [Moles/Vol] 140 mmol/L Normal 136-145 [facility] Comment on above: Performed By: #### L AB239, [id number] #### Solar Design Engineer: JACKI MANCILLA ([id number]) [facility] [address] [place] [address] Urea nitrogen [Mass/Vol] 10 mg/dL Normal 9-23 [facility] Comment on above: Performed By: #### L AB239, [id number] #### Solar Design Engineer: JACKI MANCILLA ([id number]) [facility]) [address] [place] [address] Bacteria identified Cx Nom ( Bld)on 12-08-2024 Interpretation and review of laboratory results Normal [facility] Blood Collection Sit e: Left Forearm [facility] Blood Collection Sit e: Left Hand [facility] Basic metabolic 1998 panelon 12-08-2024 Anion gap [Moles/Vol] 6 mmol/L 3 - 13 mmol/L [facility] Calcium [Mass/Vol] 8.7 mg/dL Low 8.8 - 10. 0 mg/dL [facility] Chloride [Moles/Vol] 108 mmol/L High 98 - 10 7 mmol/L [facility] CO2 [Moles/Vol] 26 mmol/L 23 - 31 mmol/L [facility] Creatinine [Mass/Vol] 0.64 mg/dL 0.57 - 1.11 mg/dL [facility] GFR/1.73 sq M.predicted (S/P/Bld) [Vol rate/Area] - PINF [facility] Comment on above: Calculation based on the Chronic Kidney Disease Epidemiology Collaboration (CKD-EPI) equation refit without adjustment for race Glucose [Mass/Vol] 87 mg/dL 82 - 115 mg/dL [facility] Interpretation and review of laboratory results Abnormal [facility] Potassium [Moles/Vol] 3.9 mmol/L 3.5 - 5.1 mmol/L [facility] Comment on above: Plasma potassium radha ues may be up to 0.5 mmol/L lower than serum values. Sodium [Moles/Vol] 140 mmol/L 136 - 145 mmol/L [facility] Urea nitrogen [Mass/Vol] 10 mg/dL 9 - 23 mg/dL [facility] CBC W Auto Differential pane l (Bld)on 12-08-2024 Basophils (Bld) [#/Vol] 0 10*3/uL 0.0 - 0.2 10*3/uL [facility] Basophils/100 WBC (Bld) 0.5 % 0.0 - 2.0 % [facility] Eosinophils (Bld) [#/Vol] 0.1 10*3/uL 0.0 - 0.5 10*3/uL [facility] Eosinophils/100 WBC (Bld) 1.5 % 0.0 - 6.0 % [facility] Erythrocyte distribution width (RBC) [Ratio] 13.1 % 11.5 - 15.0 % [facility] Hematocrit (Bld) [Volume fraction] 30.8 % Low 35.0 - 47.0 % [facility] Hemoglobin (Bld) [Mass/Vol] 9.9 g/dL Low 11.7 - 16.0 g/dL [facility] Immature granulocytes (Bld) [#/Vol] 0 10*3/uL NINF - 0.1 10*3/uL [facility] Immature granulocytes/100 WBC (Bld) 0.3 % 0.0 - 2.0 % [facility] Interpretation and review of laboratory results Abnormal [facility] Lymphocytes (Bld) [#/Vol] 2.1 10*3/uL 1.0 - 4.3 10*3/uL [facility] Lymphocytes/100 WBC (Bld) 35.7 % 15.0 - 45.0 % [facility] MCH (RBC) [Entitic mass] 28.7 pg 26.0 - 34.0 pg [facility] MCHC (RBC) [Mass/Vol] 32.1 % 30.5 - 36.0 % [facility] MCV (RBC) [Entitic vol] 89.3 fL 77.0 - 99.0 fL [facility] Monocytes (Bld) [#/Vol] 0.5 10*3/uL 0.0 - 0.9 10*3/uL [facility] Monocytes/100 WBC (Bld) 9 % 5.0 - 13.0 % [facility] Neutrophils (Bld) [#/Vol] 3.1 10*3/uL 1.8 - 7.5 10*3/uL [facility] Neutrophils/100 WBC (Bld) 53 % 38.0 - 82.0 % [facility] Nucleated RBC/100 WBC (Bld) [Ratio] 0 % [facility] Platelet mean volume (Bld) [Entitic vol] 11.9 fL 9.0 - 12.7 fL [facility] Platelets (Bld) [#/Vol] 165 10*3/uL 140 - 440 10*3/uL [facility] RBC (Bld) [#/Vol] 3.45 10*6/uL Low 3.80 - 5.2 0 10*6/uL [facility] WBC (Bld) [#/Vol] 5.9 10*3/uL 3.6 - 10.7 10*3/uL [facility] CBC WITH AUTO DIFFERENTIALon 12-08-2024 Basophils (Bld) [#/Vol] 0.0 10*3/uL Normal 0.0-0.2 [facility] Comment on above: Performed By: #### L [id number] ####Solar Design Engineer: JAKCI MANCILLA ([id number])[address] Basophils/100 WBC (Bld) 0.5 % Normal 0.0-2.0 [facility] Comment on above: Performed By: #### L [id number] ####Solar Design Engineer: JACKI MANCILLA ([id number])[facility] ([facility])[address] [place] [address] Eosinophils (Bld) [#/Vol] 0.1 10*3/uL Normal 0.0-0.5 [facility] Comment on above: Performed By: #### L [id number] ####Solar Design Engineer: JACKI MANCILLA ([id number])[facility] [place] [address] Eosinophils/100 WBC (Bld) 1.5 % Normal 0.0-6.0 [facility] Comment on above: Performed By: #### L [id number] ####Solar Design Engineer: JACKI MANCILLA ([id number])[address] Erythrocyte distribution width (RBC) [Ratio] 13.1 % Normal 11.5-15.0 [facility] Comment on above: Performed By: #### L [id number] ####Solar Design Engineer: JACKI MANCILLA ([id number])[facility] [place] [address] Hematocrit (Bld) [Volume fraction] 30.8 % Low 35.0-47.0 [facility] Comment on above: Performed By: #### L [id number] ####Solar Design Engineer: JACKI MANCILLA ([id number])[address] Hemoglobin (Bld) [Mass/Vol] 9.9 g/dL Low 11.7-16.0 [facility] Comment on above: Performed By: #### L [id number] ####Solar Design Engineer: JACKI MANCILLA ([id number])[address] IMMATURE GRANS % 0.3 % Normal 0.0-2.0 [facility] Comment on above: Performed By: #### L [id number] ####Solar Design Engineer: JACKI MANCILLA ([id number])[address] IMMATURE GRANS ABSOLUTE 0.0 10*3/uL Normal <0.1 [facility] Comment on above: Performed By: #### L [id number] ####Solar Design Engineer: JACKI MANCILLA ([id number])[address] Lymphocytes (Bld) [#/Vol] 2.1 10*3/uL Normal 1.0-4.3 [facility] Comment on above: Performed By: #### L [id number] ####Solar Design Engineer: JAKCI MANCILLA ([id number])[facility] [place] [address] Lymphocytes/100 WBC (Bld) 35.7 % Normal 15.0-45.0 [facility] Comment on above: Performed By: #### L [id number] ####Solar Design Engineer: JACKI AMNCILLA ([id number])[facility])[address] [place] [address] MCH (RBC) [Entitic mass] 28.7 pg Normal 26.0-34.0 [facility] Comment on above: Performed By: #### L [id number] ####Solar Design Engineer: JACKI MANCILLA ([id number])[facility])[address] [place] [address] MCHC 32.1 % Normal 30.5-36.0 [facility] Comment on above: Performed By: #### L [id number] ####Solar Design Engineer: JACKI MANCILLA ([id number])[facility])[address] [place] [address] MCV (RBC) [Entitic vol] 89.3 fL Normal 77.0-99.0 [facility] Comment on above: Performed By: #### L [id number] ####Solar Design Engineer: JACKI MANCILLA ([id number])[facility])[address] [place] [address] Monocytes (Bld) [#/Vol] 0.5 10*3/uL Normal 0.0-0.9 [facility] Comment on above: Performed By: #### L [id number] ####Solar Design Engineer: JACKI MANCILLA ([id number])[facility])[address] [place] [address] Monocytes/100 WBC (Bld) 9.0 % Normal 5.0-13.0 S [facility] Comment on above: Performed By: #### L [id number] ####Solar Design Engineer: JACKI MANCILLA ([id number])[facility])[address] [place] [address] NEUTROPHILS ABSOLUTE 3.1 10*3/uL Normal 1.8-7.5 [facility] Comment on above: Performed By: #### L [id number] ####Solar Design Engineer: JACKI MANCILLA ([id number])[facility])[address] [place] [address] Neutrophils/100 WBC (Bld) 53.0 % Normal 38.0-82.0 [facility] Comment on above: Performed By: #### L [id number] ####Solar Design Engineer: JACKI MANCILLA ([id number])[facility] ([facility])[address] [place] [address] NRBC 0.0 /100 WBCs Normal 0.0-2.0 [facility] Comment on above: Performed By: #### L [id number] ####Solar Design Engineer: JACKI MANCILLA ([id number])[facility])[address] [place] [address] Platelet mean volume (Bld) [Entitic vol] 11.9 fL Normal 9.0-12.7 [facility] Comment on above: Performed By: #### L [id number] ####Solar Design Engineer: JACKI MANCILLA ([id number])[facility] ([facility])[address] [place] [address] Platelets (Bld) [#/Vol] 165 10*3/uL Normal 140-440 [facility] Comment on above: Performed By: #### L [id number] ####Solar Design Engineer: JACKI MANCILLA ([id number])[facility] ([facility])[address] [place] [address] RBC (Bld) [#/Vol] 3.45 10*6/uL Low 3.80-5.20 [facility] Comment on above: Performed By: #### L [id number] ####Solar Design Engineer: JACKI MANCILLA ([id number])[facility])[address] [place] [address] WBC (Bld) [#/Vol] 5.9 10*3/uL Normal 3.6-10.7 [facility] Comment on above: Performed By: #### L [id number] ####Solar Design Engineer: JACKI MANCILLA ([id number])[facility] ([facility])[address] [place] [address] Laboratory - Microbiology an d Antimicrobial susceptibilityon 12-08-2024 Bacteria identified Cx Nom (Bld) No growth at 5 days [facility] 30on 12-07-2024 30 Problem: Knowledge Deficit Goal: Patient/family/caregiver demonstrates understanding of disease process, treatment plan, medications, and discharge instructions Outcome: Progressing Problem: Potential for Compromised Skin Integrity Goal: Skin Integrity is Maintained or Improved Outcome: Progressing Goal: Nutritional status is improving Outcome: Progressing Problem: Urinary Incontinence Goal: Perineal skin integrity is maintained or improved Outcome: Progressing Problem: Problem Interventions Goal: Assess Nutritional Intake Outcome: Progressing Normal [facility] BASIC METABOLIC PANELon 11-16 Anion gap [Moles/Vol] 7 mmol/L Normal 3-13 [facility] Comment on above: Performed By: #### L [id number] ####Solar Design Engineer: JACKI MANCILLA ([id number])[facility] ([facility])[address] [place] [address] Calcium [Mass/Vol] 9.0 mg/dL Normal 8.8-10.0 [facility] Comment on above: Performed By: #### L [id number] ####Solar Design Engineer: JACKI MANCILLA ([id number])[facility] ([facility])[address] [place] [address] Chloride [Moles/Vol] 110 mmol/L High 98-107 [facility] Comment on above: Performed By: #### L [id number] ####Solar Design Engineer: JACKI MANCILLA ([id number])[facility] ([facility])[address] [place] [address] CO2 [Moles/Vol] 25 mmol/L Normal 23-31 [facility] Comment on above: Performed By: #### L [id number] ####Solar Design Engineer: JACKI MANCILLA ([id number])[facility] ([facility])[address] [place] [address] Creatinine [Mass/Vol] 0.64 mg/dL Normal 0.57-1.11 [facility] Comment on above: Performed By: #### L [id number] ####Solar Design Engineer: JACKI MANCILLA ([id number])[facility])[address] [place] [address] GLOMERULAR FILTRATION RATE ML/MIN/1.73 SQ M.PREDICTED >90.0 Normal >60.0 [facility] Comment on above: Result Comment: Calc ulation based on the Chronic Kidney Disease Epidemiology Collaboration (CKD-EPI) equation refit without adjustment for race Performed By: #### L AB15 ####Solar Design Engineer: JACKI MANCILLA ([id number])[facility])[address] [place] [address] Glucose [Mass/Vol] 90 mg/dL Normal 82-115 [facility] Comment on above: Performed By: #### L [id number] ####Solar Design Engineer: JACKI MANCILLA ([id number])[address] Potassium [Moles/Vol] 3.9 mmol/L Normal 3.5-5.1 [facility] Comment on above: Result Comment: [facility] potassium values may be up to 0.5 mmol/L lower than serum values. Performed By: #### L [id number] ####Solar Design Engineer: JACKI MANCILLA ([phone])[facility])[address] [place] [address] Sodium [Moles/Vol] 142 mmol/L Normal 136-145 [facility] Comment on above: Performed By: #### L AB15 ####Solar Design Engineer: JACKI MANCILLA ([id number])[facility])[address] [place] [address] Urea nitrogen [Mass/Vol] 12 mg/dL Normal 9-23 [facility] Comment on above: Performed By: #### L [id number] ####Solar Design Engineer: JACKI MANCILLA ([id number])[facility])[address] [place] [address] Basic metabolic 1998 panelon 12-07-2024 Anion gap [Moles/Vol] 7 mmol/L 3 - 13 mmol/L [facility] Calcium [Mass/Vol] 9 mg/dL 8.8 - 10. 0 mg/dL [facility] Chloride [Moles/Vol] 110 mmol/L High 98 - 10 7 mmol/L [facility] CO2 [Moles/Vol] 25 mmol/L 23 - 31 mmol/L [facility] Creatinine [Mass/Vol] 0.64 mg/dL 0.57 - 1.11 mg/dL [facility] GFR/1.73 sq M.predicted (S/P/Bld) [Vol rate/Area] - PINF [facility] Comment on above: Calculation based on the Chronic Kidney Disease Epidemiology Collaboration (CKD-EPI) equation refit without adjustment for race Glucose [Mass/Vol] 90 mg/dL 82 - 115 mg/dL [facility] Interpretation and review of laboratory results Abnormal [facility] Potassium [Moles/Vol] 3.9 mmol/L 3.5 - 5.1 mmol/L [facility] Comment on above: Plasma potassium radha ues may be up to 0.5 mmol/L lower than serum values. Sodium [Moles/Vol] 142 mmol/L 136 - 145 mmol/L [facility] Urea nitrogen [Mass/Vol] 12 mg/dL 9 - 23 mg/dL [facility] CBC W Auto Differential pane l (Bld)on 12-07-2024 Basophils (Bld) [#/Vol] 0 10*3/uL 0.0 - 0.2 10*3/uL [facility] Basophils/100 WBC (Bld) 0.5 % 0.0 - 2.0 % [facility] Eosinophils (Bld) [#/Vol] 0.1 10*3/uL 0.0 - 0.5 10*3/uL [facility] Eosinophils/100 WBC (Bld) 1.2 % 0.0 - 6.0 % [facility] Erythrocyte distribution width (RBC) [Ratio] 13.2 % 11.5 - 15.0 % [facility] Hematocrit (Bld) [Volume fraction] 32.1 % Low 35.0 - 47.0 % [facility] Hemoglobin (Bld) [Mass/Vol] 10.4 g/dL Low 11.7 - 16.0 g/dL [facility] Immature granulocytes (Bld) [#/Vol] 0 10*3/uL NINF - 0.1 10*3/uL [facility] [employer] Immature granulocytes/100 WBC (Bld) 0.2 % 0.0 - 2.0 % [facility] Interpretation and review of laboratory results Abnormal [facility] Lymphocytes (Bld) [#/Vol] 2.1 10*3/uL 1.0 - 4.3 10*3/uL [facility] Lymphocytes/100 WBC (Bld) 35 % 15.0 - 45.0 % [facility] MCH (RBC) [Entitic mass] 28.1 pg 26.0 - 34.0 pg [facility] MCHC (RBC) [Mass/Vol] 32.4 % 30.5 - 36.0 % [facility] MCV (RBC) [Entitic vol] 86.8 fL 77.0 - 99.0 fL [facility] Monocytes (Bld) [#/Vol] 0.6 10*3/uL 0.0 - 0.9 10*3/uL [facility] Monocytes/100 WBC (Bld) 10.1 % 5.0 - 13.0 % [facility] Neutrophils (Bld) [#/Vol] 3.2 10*3/uL 1.8 - 7.5 10*3/uL [facility] Neutrophils/100 WBC (Bld) 53 % 38.0 - 82.0 % [facility] Nucleated RBC/100 WBC (Bld) [Ratio] 0 % [facility] Platelet mean volume (Bld) [Entitic vol] 11.5 fL 9.0 - 12.7 fL [facility] Platelets (Bld) [#/Vol] 169 10*3/uL 140 - 440 10*3/uL [facility] RBC (Bld) [#/Vol] 3.7 10*6/uL Low 3.80 - 5.2 0 10*6/uL [facility] WBC (Bld) [#/Vol] 6.1 10*3/uL 3.6 - 10.7 10*3/uL [facility] CBC WITH AUTO DIFFERENTIALon 12-07-2024 Basophils (Bld) [#/Vol] 0.0 10*3/uL Normal 0.0-0.2 [facility] Comment on above: Performed By: #### L [id number] ####Solar Design Engineer: JACKI MANCILLA ([id number])[facility])[address] [place] [address] Basophils/100 WBC (Bld) 0.5 % Normal 0.0-2.0 [facility] Comment on above: Performed By: #### L [id number] ####Solar Design Engineer: JACKI MANCILLA ([phone])[facility])[address] [place] [address] Eosinophils (Bld) [#/Vol] 0.1 10*3/uL Normal 0.0-0.5 [facility] Comment on above: Performed By: #### L [id number] ####Solar Design Engineer: JACKI MANCILLA ([id number])[facility])[address] [place] [address] Eosinophils/100 WBC (Bld) 1.2 % Normal 0.0-6.0 [facility] Comment on above: Performed By: #### L [id number] ####Solar Design Engineer: JACKI MANCILLA ([id number])[facility])[address] [place] [address] Erythrocyte distribution width (RBC) [Ratio] 13.2 % Normal 11.5-15.0 [facility] Comment on above: Performed By: #### L [id number] ####Solar Design Engineer: JACKI MANCILLA ([id number])[facility])[address] [place] [address] Hematocrit (Bld) [Volume fraction] 32.1 % Low 35.0-47.0 [facility] Comment on above: Performed By: #### L [id number] ####Solar Design Engineer: JACKI MANCILLA ([id number])[facility])[address] [place] [address] Hemoglobin (Bld) [Mass/Vol] 10.4 g/dL Low 11.7-16.0 [facility] Comment on above: Performed By: #### L [id number] ####Solar Design Engineer: JACKI MANCILLA ([id number])[facility])[address] [place] [address] IMMATURE GRANS % 0.2 % Normal 0.0-2.0 [facility] Comment on above: Performed By: #### L [id number] ####Solar Design Engineer: JACKI MANCILLA ([id number])[facility])[address] [place] [address] IMMATURE GRANS ABSOLUTE 0.0 10*3/uL Normal <0.1 [facility] Comment on above: Performed By: #### L [id number] ####Solar Design Engineer: JACKI MANCILLA ([id number])[facility])[address] [place] [address] Lymphocytes (Bld) [#/Vol] 2.1 10*3/uL Normal 1.0-4.3 [facility] Comment on above: Performed By: #### L [id number] ####Solar Design Engineer: JACKI MANCILLA ([id number])[address] Lymphocytes/100 WBC (Bld) 35.0 % Normal 15.0-45.0 [facility] Comment on above: Performed By: #### L [id number] ####Solar Design Engineer: JACKI MANCILLA ([id number])[facility])[address] [place] [address] MCH (RBC) [Entitic mass] 28.1 pg Normal 26.0-34.0 [facility] Comment on above: Performed By: #### L [id number] ####Solar Design Engineer: JACKI MANCILLA ([id number])[address] MCHC 32.4 % Normal 30.5-36.0 [facility] Comment on above: Performed By: #### L [id number] ####Solar Design Engineer: JACKI MANCILLA ([id number])[address] MCV (RBC) [Entitic vol] 86.8 fL Normal 77.0-99.0 [facility] Comment on above: Performed By: #### L [id number] ####Solar Design Engineer: JACKI MANCILLA ([id number])[facility] ([facility])[address] [place] [address] Monocytes (Bld) [#/Vol] 0.6 10*3/uL Normal 0.0-0.9 [facility] Comment on above: Performed By: #### L [id number] ####Solar Design Engineer: JACKI MANCILLA ([id number])[facility] ([facility])[address] [place] [address] Monocytes/100 WBC (Bld) 10.1 % Normal 5.0-13.0 [facility] Comment on above: Performed By: #### L [id number] ####Solar Design Engineer: JACKI MANCILLA ([id number])[facility] ([facility])[address] [place] [address] NEUTROPHILS ABSOLUTE 3.2 10*3/uL Normal 1.8-7.5 [facility] Comment on above: Performed By: #### L [id number] ####Solar Design Engineer: JACKI MANCILLA ([id number])[facility] ([facility])[address] [place] [address] Neutrophils/100 WBC (Bld) 53.0 % Normal 38.0-82.0 [facility] Comment on above: Performed By: #### L [id number] ####Solar Design Engineer: JACKI MANCILLA ([id number])[facility] ([facility])[address] [place] [address] NRBC 0.0 /100 WBCs Normal 0.0-2.0 [facility] Comment on above: Performed By: #### L [id number] ####Solar Design Engineer: JACKI MANCILLA ([id number])[facility] ([facility])[address] [place] [address] Platelet mean volume (Bld) [Entitic vol] 11.5 fL Normal 9.0-12.7 [facility] Comment on above: Performed By: #### L [id number] ####Solar Design Engineer: JACKI MANCILLA ([id number])[facility] [place] [address] Platelets (Bld) [#/Vol] 169 10*3/uL Normal 140-440 [facility] Comment on above: Performed By: #### L [id number] ####Solar Design Engineer: JACKI MANCILLA ([id number])[facility])[address] [place] [address] RBC (Bld) [#/Vol] 3.70 10*6/uL Low 3.80-5.20 [facility] Comment on above: Performed By: #### L [id number] ####Solar Design Engineer: JACKI MANCILLA ([id number])[facility])[address] [place] [address] WBC (Bld) [#/Vol] 6.1 10*3/uL Normal 3.6-10.7 [facility] Comment on above: Performed By: #### L [id number] ####Solar Design Engineer: JACKI MANCILLA ([id number])[facility] ([facility])[address] [place] [address] 30on 12-06-2024 30 Problem: Knowledge Deficit Goal: Patient/family/caregiver demonstrates understanding of disease process, treatment plan, medications, and discharge instructions 12/06/2024514 by Maria Victoria Zapata RN Outcome: Progressing 12/06/202417 by Maria Victoria Zapata RN Outcome: Progressing Problem: Potential for Compromised Skin Integrity Goal: Skin Integrity is Maintained or Improved 12/06/2024514 by Maria Victoria Zapata RN Outcome: Progressing 12/06/202417 by Maria Victoria Zapata RN Outcome: Progressing Goal: Nutritional status is improving 12/06/2024514 by Maria Victoria Zapata RN Outcome: Progressing 12/06/202417 by Maria Victoria Zapata RN Outcome: Progressing Problem: Urinary Incontinence Goal: Perineal skin integrity is maintained or improved 12/06/2024514 by Maria Victoria Zapata RN Outcome: Progressing 12/06/202417 by Maria Victoria Zapata RN Outcome: Progressing Normal [facility] 30 Problem: Knowledge Deficit Goal: Patient/family/caregiver demonstrates understanding of disease process, treatment plan, medications, and discharge instructions Outcome: Progressing Problem: Potential for Compromised Skin Integrity Goal: Skin Integrity is Maintained or Improved Outcome: Progressing Goal: Nutritional status is improving Outcome: Progressing Problem: Urinary Incontinence Goal: Perineal skin integrity is maintained or improved Outcome: Progressing Normal [facility] BASIC METABOLIC PANELon 11-16 Anion gap [Moles/Vol] 7 mmol/L Normal 3-13 [facility] Comment on above: Performed By: #### L [id number] ####Solar Design Engineer: JACKI MANCILLA ([id number])[facility])[address] [place] [address] Calcium [Mass/Vol] 8.8 mg/dL Normal 8.8-10.0 [facility] Comment on above: Performed By: #### L AB15 ####Solar Design Engineer: JACKI MANCILLA ([id number])[facility])[address] [place] [address] Chloride [Moles/Vol] 110 mmol/L High 98-107 [facility] Comment on above: Performed By: #### L AB15 ####Solar Design Engineer: JACKI MANCILLA ([id number])[facility])[address] [place] [address] CO2 [Moles/Vol] 24 mmol/L Normal 23-31 [facility] Comment on above: Performed By: #### L AB15 ####Solar Design Engineer: JACKI MANCILLA ([id number])[facility])[address] [place] [address] Creatinine [Mass/Vol] 0.64 mg/dL Normal 0.57-1.11 [facility] Comment on above: Performed By: #### L AB15 ####Solar Design Engineer: JACKI MANCILLA ([phone])[facility])[address] [place] [address] GLOMERULAR FILTRATION RATE ML/MIN/1.73 SQ M.PREDICTED >90.0 Normal >60.0 [facility] Comment on above: Result Comment: Calc ulation based on the Chronic Kidney Disease Epidemiology Collaboration (CKD-EPI) equation refit without adjustment for race Performed By: #### L AB15 ####Solar Design Engineer: JACKI MANCILLA ([id number])[facility])[address] [place] [address] Glucose [Mass/Vol] 87 mg/dL Normal 82-115 [facility] Comment on above: Performed By: #### L AB15 ####Solar Design Engineer: JACKI MANCILLA ([id number])[facility])[address] [place] [address] Potassium [Moles/Vol] 3.7 mmol/L Normal 3.5-5.1 [facility] Comment on above: Result Comment: [facility] potassium values may be up to 0.5 mmol/L lower than serum values. Performed By: #### L AB15 ####Solar Design Engineer: JACKI MANCILLA ([id number])[facility])[address] [place] [address] Sodium [Moles/Vol] 141 mmol/L Normal 136-145 [facility] Comment on above: Performed By: #### L AB15 ####Solar Design Engineer: JACKI MANCILLA ([id number])[facility])[address] [place] [address] Urea nitrogen [Mass/Vol] 12 mg/dL Normal 9-23 [facility] Comment on above: Performed By: #### L AB15 ####Solar Design Engineer: JACKI MANCILLA ([id number])[address] Bacteria identified Cx Nom ( U)Ordered By: Emily Ocampo on 12-06-2024 Interpretation and review of laboratory results Abnormal [facility] Basic metabolic 1998 panelon 12-06-2024 Anion gap [Moles/Vol] 7 mmol/L 3 - 13 mmol/L [facility] Calcium [Mass/Vol] 8.8 mg/dL 8.8 - 10. 0 mg/dL [facility] Chloride [Moles/Vol] 110 mmol/L High 98 - 10 7 mmol/L [facility] CO2 [Moles/Vol] 24 mmol/L 23 - 31 mmol/L [facility] Creatinine [Mass/Vol] 0.64 mg/dL 0.57 - 1.11 mg/dL [facility] GFR/1.73 sq M.predicted (S/P/Bld) [Vol rate/Area] - PINF [facility] Comment on above: Calculation based on the Chronic Kidney Disease Epidemiology Collaboration (CKD-EPI) equation refit without adjustment for race Glucose [Mass/Vol] 87 mg/dL 82 - 115 mg/dL [facility] Interpretation and review of laboratory results Abnormal [facility] Potassium [Moles/Vol] 3.7 mmol/L 3.5 - 5.1 mmol/L [facility] Comment on above: Plasma potassium radha ues may be up to 0.5 mmol/L lower than serum values. Sodium [Moles/Vol] 141 mmol/L 136 - 145 mmol/L [facility] Urea nitrogen [Mass/Vol] 12 mg/dL 9 - 23 mg/dL [facility] CBC W Auto Differential pane l (Bld)on 12-06-2024 Basophils (Bld) [#/Vol] 0 10*3/uL 0.0 - 0.2 10*3/uL [facility] Basophils/100 WBC (Bld) 0.6 % 0.0 - 2.0 % [facility] Eosinophils (Bld) [#/Vol] 0 10*3/uL 0.0 - 0.5 10*3/uL [facility] Eosinophils/100 WBC (Bld) 0.6 % 0.0 - 6.0 % [facility] Erythrocyte distribution width (RBC) [Ratio] 13 % 11.5 - 15.0 % [facility] Hematocrit (Bld) [Volume fraction] 33 % Low 35.0 - 47.0 % [facility] Hemoglobin (Bld) [Mass/Vol] 10.5 g/dL Low 11.7 - 16.0 g/dL [facility] Immature granulocytes (Bld) [#/Vol] 0 10*3/uL NINF - 0.1 10*3/uL [facility] [employer] Immature granulocytes/100 WBC (Bld) 0.2 % 0.0 - 2.0 % [facility] Interpretation and review of laboratory results Abnormal [facility] Lymphocytes (Bld) [#/Vol] 2 10*3/uL 1.0 - 4.3 10*3/uL [facility] Lymphocytes/100 WBC (Bld) 37 % 15.0 - 45.0 % [facility] MCH (RBC) [Entitic mass] 28.7 pg 26.0 - 34.0 pg [facility] MCHC (RBC) [Mass/Vol] 31.8 % 30.5 - 36.0 % [facility] MCV (RBC) [Entitic vol] 90.2 fL 77.0 - 99.0 fL [facility] Monocytes (Bld) [#/Vol] 0.6 10*3/uL 0.0 - 0.9 10*3/uL [facility] Monocytes/100 WBC (Bld) 11 % 5.0 - 13.0 % [facility] Neutrophils (Bld) [#/Vol] 2.7 10*3/uL 1.8 - 7.5 10*3/uL [facility] Neutrophils/100 WBC (Bld) 50.6 % 38.0 - 82.0 % [facility] Nucleated RBC/100 WBC (Bld) [Ratio] 0 % [facility] Platelet mean volume (Bld) [Entitic vol] 11.7 fL 9.0 - 12.7 fL [facility] Platelets (Bld) [#/Vol] 158 10*3/uL 140 - 440 10*3/uL [facility] RBC (Bld) [#/Vol] 3.66 10*6/uL Low 3.80 - 5.2 0 10*6/uL [facility] WBC (Bld) [#/Vol] 5.3 10*3/uL 3.6 - 10.7 10*3/uL [facility] CBC WITH AUTO DIFFERENTIALon 12-06-2024 Basophils (Bld) [#/Vol] 0.0 10*3/uL Normal 0.0-0.2 [facility] Comment on above: Performed By: #### L [id number], [id number] #### Solar Design Engineer: JACKI MANCILLA ([id number]) [address] Basophils/100 WBC (Bld) 0.6 % Normal 0.0-2.0 [facility] Comment on above: Performed By: #### L [id number], [id number] #### Solar Design Engineer: JACKI MANCILLA ([id number]) [facility] ([facility]) [address] [place] [address] Eosinophils (Bld) [#/Vol] 0.0 10*3/uL Normal 0.0-0.5 [facility] Comment on above: Performed By: #### L [id number], [id number] #### Solar Design Engineer: JACKI MANCILLA ([id number]) [facility]) [address] [place] [address] Eosinophils/100 WBC (Bld) 0.6 % Normal 0.0-6.0 [facility] Comment on above: Performed By: #### L [id number], [id number] #### Solar Design Engineer: JACKI MANCILLA ([id number]) [address] Erythrocyte distribution width (RBC) [Ratio] 13.0 % Normal 11.5-15.0 [facility] Comment on above: Performed By: #### L [id number], [id number] #### Solar Design Engineer: JACKI MANCILLA ([id number]) [facility]) [address] [place] [address] Hematocrit (Bld) [Volume fraction] 33.0 % Low 35.0-47.0 [facility] Comment on above: Performed By: #### L [id number], [id number] #### Solar Design Engineer: JACKI MANCILLA ([id number]) [address] Hemoglobin (Bld) [Mass/Vol] 10.5 g/dL Low 11.7-16.0 [facility] Comment on above: Performed By: #### L [id number], [id number] #### Solar Design Engineer: JACKI MANCILLA ([id number]) [address] IMMATURE GRANS % 0.2 % Normal 0.0-2.0 [facility] Comment on above: Performed By: #### L AB239, [id number] #### Solar Design Engineer: JACKI [id number]) [facility]) [address] [place] [address] IMMATURE GRANS ABSOLUTE 0.0 10*3/uL Normal <0.1 [facility] Comment on above: Performed By: #### L AB239, [id number] #### Solar Design Engineer: JACKI MANCILLA ([id number]) [facility]) [address] [place] [address] Lymphocytes (Bld) [#/Vol] 2.0 10*3/uL Normal 1.0-4.3 [facility] Comment on above: Performed By: #### L AB239, [id number] #### Solar Design Engineer: JACKI MANCILLA ([id number]) [facility]) [address] [place] [address] Lymphocytes/100 WBC (Bld) 37.0 % Normal 15.0-45.0 [facility] Comment on above: Performed By: #### Ailyn AB239, [id number] #### Solar Design Engineer: JACKI MANCILLA ([id number]) [facility] ([facility]) [address] [place] [address] MCH (RBC) [Entitic mass] 28.7 pg Normal 26.0-34.0 [facility] Comment on above: Performed By: #### Ailyn AB239, [id number] #### Solar Design Engineer: JACKI MANCILLA ([id number]) [facility]) [address] [place] [address] MCHC 31.8 % Normal 30.5-36.0 [facility] Comment on above: Performed By: #### L AB239, [id number] #### Solar Design Engineer: JACKI MANCILLA ([id number]) [facility]) [address] [place] [address] MCV (RBC) [Entitic vol] 90.2 fL Normal 77.0-99.0 S [facility] Comment on above: Performed By: #### L AB239, [id number] #### Solar Design Engineer: JACKI MANCILLA ([id number]) [facility]) [address] [place] [address] Monocytes (Bld) [#/Vol] 0.6 10*3/uL Normal 0.0-0.9 [facility] Comment on above: Performed By: #### L AB239, [id number] #### Solar Design Engineer: JACKI MANCILLA ([id number]) [facility] [address] [place] [address] Monocytes/100 WBC (Bld) 11.0 % Normal 5.0-13.0 [facility] Comment on above: Performed By: #### L AB239, [id number] #### Solar Design Engineer: JACKI MANCILLA ([id number]) [facility] ([facility]) [address] [place] [address] NEUTROPHILS ABSOLUTE 2.7 10*3/uL Normal 1.8-7.5 [facility] Comment on above: Performed By: #### Ailyn [id number], [id number] #### Solar Design Engineer: JACKI MANCILLA ([id number]) [facility] ([facility] [address] [place] [address] Neutrophils/100 WBC (Bld) 50.6 % Normal 38.0-82.0 [facility] Comment on above: Performed By: #### Ailyn [id number], [id number] #### Solar Design Engineer: JACKI MANCILLA ([id number]) [facility] ([facility]) [address] [place] [address] NRBC 0.0 /100 WBCs Normal 0.0-2.0 [facility] Comment on above: Performed By: #### L [id number], [id number] #### Solar Design Engineer: JACKI MANCILLA ([id number]) [facility] ([facility]) [address] [place] [address] Platelet mean volume (Bld) [Entitic vol] 11.7 fL Normal 9.0-12.7 [facility] Comment on above: Performed By: #### L [id number], [id number] #### Solar Design Engineer: JACKI MANCILLA ([id number]) [facility] ([facility]) [address] [place] [address] [place] Platelets (Bld) [#/Vol] 158 10*3/uL Normal 140-440 [facility] Comment on above: Performed By: #### L [id number], [id number] #### Solar Design Engineer: JACKI MANCILLA ([id number]) [facility] ([facility]) [address] [place] [address] RBC (Bld) [#/Vol] 3.66 10*6/uL Low 3.80-5.20 [facility] Comment on above: Performed By: #### L [id number], [id number] #### Solar Design Engineer: JACKI MANCILLA ([id number]) [facility] ([facility] [address] [place] [address] WBC (Bld) [#/Vol] 5.3 10*3/uL Normal 3.6-10.7 [facility] Comment on above: Performed By: #### L [id number], [id number] #### Solar Design Engineer: JACKI MANCILLA ([id number]) [facility] ([facility]) [address] [place] [address] Laboratory - Drug toxicology on 12-06-2024 Valproate [Mass/Vol] 20.4 ug/mL Low 50.0 - 100.0 mg/L [facility] Comment on above: Test Performed by Reji Chapin, [facility], [address] [place] [address] Jorge L Guerrero M.D., Ph.D., Director of Laboratories , [place] [id number] Valproate Free [Mass/Vol] <4.0 Low 4.8 - 17.3 mg/L [facility] Comment on above: Note: Non-linear drug binding properties result in the fraction of Free Valproic Acid increasing as total drug increases. The free fraction may range from 5% to 25% for the total drug range of 30-160 mg/L. Laboratory - Microbiology an d Antimicrobial susceptibilityOrdered By: Emily Ocampo on 12-06-2024 Bacteria identified Cx Nom (U) Normal urogenital devyn present [facility] Bacteria identified Cx Nom (U) >100,000 CFU/mL Escherichia coli Abnormal [facility] Bacteria identified Cx Nom (U) >100,000 CFU/mL Aerococcus urinae Abnormal [facility] Comment on above: Susceptibility testi ng not routinely performed except on isolates from blood culture. Aerococcus species are generally susceptible to beta-lactams. Resistance to sulfonamides is common in Aerococcus urinae. Providers should call the [facility] obiology Laboratory ([phone]) within 3 days if susceptibility testing is required. No Panel Informationon 12-06 Interpretation and review of laboratory results Abnormal [facility] 30on 12-05-2024 30 Problem: Knowledge Deficit Goal: Patient/family/caregiver demonstrates understanding of disease process, treatment plan, medications, and discharge instructions Outcome: Progressing Problem: Potential for Compromised Skin Integrity Goal: Skin Integrity is Maintained or Improved Outcome: Progressing Goal: Nutritional status is improving Outcome: Progressing Problem: Urinary Incontinence Goal: Perineal skin integrity is maintained or improved Outcome: Progressing Normal [facility] [id number] 12-05-2024 [id number] Pt adm from [facility] SNF/LTC, with Sepsis 2nd to UTI. Plan is to return. Facility will adm pt back skilled under Medicare. Called pt's brother Danny, was called and updated. CM to follow. Normal [facility] BASIC METABOLIC PANELon 11-16 Anion gap [Moles/Vol] 9 mmol/L Normal 3-13 [facility] Comment on above: Performed By: #### L [id number] #### Solar Design Engineer: JACKI MANCILLA ([id number]) [facility] ([facility]) [address] [place] [address] Calcium [Mass/Vol] 8.2 mg/dL Low 8.8-10.0 [facility] Comment on above: Performed By: #### L [id number] #### Solar Design Engineer: JACKI MANCILLA ([id number]) [facility] ([facility]) [address] [place] [address] Chloride [Moles/Vol] 110 mmol/L High 98-107 [facility] Comment on above: Performed By: #### L [id number] #### Solar Design Engineer: JACKI MANCILLA ([id number]) [facility] [address] [place] [address] CO2 [Moles/Vol] 22 mmol/L Low 23-31 [facility] Comment on above: Performed By: #### L [id number] #### Solar Design Engineer: JACKI MANCILLA ([id number]) [facility] ([facility] [address] [place] [address] Creatinine [Mass/Vol] 0.68 mg/dL Normal 0.57-1.11 [facility] Comment on above: Performed By: #### L AB15 #### Solar Design Engineer: JACKI MANCILLA ([id number]) [facility] [address] [place] [address] GLOMERULAR FILTRATION RATE ML/MIN/1.73 SQ M.PREDICTED 89.8 mL/min/1.73m*2 Normal >60.0 [facility] Comment on above: Result Comment: Calc ulation based on the Chronic Kidney Disease Epidemiology Collaboration (CKD-EPI) equation refit without adjustment for race Performed By: #### L [id number] #### Solar Design Engineer: JACKI MANCILLA ([id number]) [facility] ([facility]) [address] [place] [address] Glucose [Mass/Vol] 86 mg/dL Normal 82-115 [facility] Comment on above: Performed By: #### L [id number] #### Solar Design Engineer: JACKI MANCILLA ([id number]) [facility] ([facility]) [address] [place] [address] Potassium [Moles/Vol] 3.8 mmol/L Normal 3.5-5.1 [facility] Comment on above: Result Comment: [facility] potassium values may be up to 0.5 mmol/L lower than serum values. Performed By: #### L [id number] #### Solar Design Engineer: JACKI MANCILLA ([id number]) [facility] ([facility]) [address] [place] [address] Sodium [Moles/Vol] 141 mmol/L Normal 136-145 [facility] Comment on above: Performed By: #### L [id number] #### Solar Design Engineer: JACKI MANCILLA ([id number]) [facility] ([facility]) [address] [place] [address] Urea nitrogen [Mass/Vol] 13 mg/dL Normal 9-23 [facility] Comment on above: Performed By: #### L [id number] #### Solar Design Engineer: JACKI MANCILLA ([id number]) [facility] ([facility]) [address] [place] [address] Basic metabolic 1998 panelon 12-05-2024 Anion gap [Moles/Vol] 9 mmol/L 3 - 13 mmol/L [facility] Calcium [Mass/Vol] 8.2 mg/dL Low 8.8 - 10. 0 mg/dL [facility] Chloride [Moles/Vol] 110 mmol/L High 98 - 10 7 mmol/L [facility] CO2 [Moles/Vol] 22 mmol/L Low 23 - 31 mmol/L [facility] Creatinine [Mass/Vol] 0.68 mg/dL 0.57 - 1.11 mg/dL [facility] GFR/1.73 sq M.predicted (S/P/Bld) [Vol rate/Area] 89.8 mL/min - PINF [facility] Comment on above: Calculation based on the Chronic Kidney Disease Epidemiology Collaboration (CKD-EPI) equation refit without adjustment for race Glucose [Mass/Vol] 86 mg/dL 82 - 115 mg/dL [facility] Interpretation and review of laboratory results Abnormal [facility] Potassium [Moles/Vol] 3.8 mmol/L 3.5 - 5.1 mmol/L [facility] Comment on above: Plasma potassium radha ues may be up to 0.5 mmol/L lower than serum values. Sodium [Moles/Vol] 141 mmol/L 136 - 145 mmol/L [facility] Urea nitrogen [Mass/Vol] 13 mg/dL 9 - 23 mg/dL [facility] CBC W Auto Differential pane l (Bld)on 12-05-2024 Basophils (Bld) [#/Vol] 0 10*3/uL 0.0 - 0.2 10*3/uL [facility] Basophils/100 WBC (Bld) 0.6 % 0.0 - 2.0 % [facility] Eosinophils (Bld) [#/Vol] 0 10*3/uL 0.0 - 0.5 10*3/uL [facility] Eosinophils/100 WBC (Bld) 0.5 % 0.0 - 6.0 % [facility] Erythrocyte distribution width (RBC) [Ratio] 13.3 % 11.5 - 15.0 % [facility] Hematocrit (Bld) [Volume fraction] 30.4 % Low 35.0 - 47.0 % [facility] Hemoglobin (Bld) [Mass/Vol] 9.6 g/dL Low 11.7 - 16.0 g/dL [facility] Immature granulocytes (Bld) [#/Vol] 0 10*3/uL NINF - 0.1 10*3/uL [facility] Immature granulocytes/100 WBC (Bld) 0.3 % 0.0 - 2.0 % [facility] Interpretation and review of laboratory results Abnormal [facility] Lymphocytes (Bld) [#/Vol] 2 10*3/uL 1.0 - 4.3 10*3/uL [facility] Lymphocytes/100 WBC (Bld) 32.3 % 15.0 - 45.0 % [facility] MCH (RBC) [Entitic mass] 28.5 pg 26.0 - 34.0 pg [facility] MCHC (RBC) [Mass/Vol] 31.6 % 30.5 - 36.0 % [facility] MCV (RBC) [Entitic vol] 90.2 fL 77.0 - 99.0 fL [facility] Monocytes (Bld) [#/Vol] 0.8 10*3/uL 0.0 - 0.9 10*3/uL [facility] Monocytes/100 WBC (Bld) 12.8 % 5.0 - 13.0 % [facility] Neutrophils (Bld) [#/Vol] 3.3 10*3/uL 1.8 - 7.5 10*3/uL [facility] Neutrophils/100 WBC (Bld) 53.5 % 38.0 - 82.0 % [facility] Nucleated RBC/100 WBC (Bld) [Ratio] 0 % [facility] Platelet mean volume (Bld) [Entitic vol] 11.7 fL 9.0 - 12.7 fL [facility] Platelets (Bld) [#/Vol] 148 10*3/uL 140 - 440 10*3/uL [facility] RBC (Bld) [#/Vol] 3.37 10*6/uL Low 3.80 - 5.2 0 10*6/uL [facility] WBC (Bld) [#/Vol] 6.2 10*3/uL 3.6 - 10.7 10*3/uL [facility] CBC WITH AUTO DIFFERENTIALon 12-05-2024 Basophils (Bld) [#/Vol] 0.0 10*3/uL Normal 0.0-0.2 [facility] Comment on above: Performed By: #### L [id number] ####Solar Design Engineer: JACKI MANCILLA ([id number])[facility])[address] [place] [address] Basophils/100 WBC (Bld) 0.6 % Normal 0.0-2.0 [facility] Comment on above: Performed By: #### L [id number] ####Solar Design Engineer: JACKI MANCILLA ([id number])[facility])[address] [place] [address] Eosinophils (Bld) [#/Vol] 0.0 10*3/uL Normal 0.0-0.5 [facility] Comment on above: Performed By: #### L [id number] ####Solar Design Engineer: JACKI MANCILLA ([id number])[facility])[address] [place] [address] Eosinophils/100 WBC (Bld) 0.5 % Normal 0.0-6.0 [facility] Comment on above: Performed By: #### L [id number] ####Solar Design Engineer: JACKI MANCILLA ([id number])[facility])[address] [place] [address] Erythrocyte distribution width (RBC) [Ratio] 13.3 % Normal 11.5-15.0 [facility] Comment on above: Performed By: #### L [id number] ####Solar Design Engineer: JACKI MANCILLA ([id number])[facility])[address] [place] [address] Hematocrit (Bld) [Volume fraction] 30.4 % Low 35.0-47.0 [facility] Comment on above: Performed By: #### L [id number] ####Solar Design Engineer: JACKI MANCILLA ([id number])[facility])[address] [place] [address] Hemoglobin (Bld) [Mass/Vol] 9.6 g/dL Low 11.7-16.0 [facility] Comment on above: Performed By: #### L [id number] ####Solar Design Engineer: JACKI MANCILLA ([id number])[facility])[address] [place] [address] IMMATURE GRANS % 0.3 % Normal 0.0-2.0 [facility] Comment on above: Performed By: #### L [id number] ####Solar Design Engineer: JACKI MANCILLA ([id number])[address] IMMATURE GRANS ABSOLUTE 0.0 10*3/uL Normal <0.1 [facility] Comment on above: Performed By: #### L [id number] ####Solar Design Engineer: JACKI MANCILLA ([id number])[facility])[address] [place] [address] Lymphocytes (Bld) [#/Vol] 2.0 10*3/uL Normal 1.0-4.3 [facility] Comment on above: Performed By: #### L [id number] ####Solar Design Engineer: JACKI MANCILLA ([id number])[facility])[address] [place] [address] Lymphocytes/100 WBC (Bld) 32.3 % Normal 15.0-45.0 [facility] Comment on above: Performed By: #### L [id number] ####Solar Design Engineer: JACKI MANCILLA ([id number])[address] MCH (RBC) [Entitic mass] 28.5 pg Normal 26.0-34.0 [facility] Comment on above: Performed By: #### L [id number] ####Solar Design Engineer: JACKI MANCILLA ([id number])[facility] ([facility])[address] [place] [address] MCHC 31.6 % Normal 30.5-36.0 [facility] Comment on above: Performed By: #### L [id number] ####Solar Design Engineer: JACKI MANCILLA ([id number])[facility] ([facility])[address] [place] [address] MCV (RBC) [Entitic vol] 90.2 fL Normal 77.0-99.0 [facility] Comment on above: Performed By: #### L [id number] ####Solar Design Engineer: JACKI MANCILLA ([id number])[facility] ([facility])[address] [place] [address] Monocytes (Bld) [#/Vol] 0.8 10*3/uL Normal 0.0-0.9 [facility] Comment on above: Performed By: #### L [id number] ####Solar Design Engineer: JACKI MANCILLA ([id number])[facility] ([facility])[address] [place] [address] Monocytes/100 WBC (Bld) 12.8 % Normal 5.0-13.0 [facility] Comment on above: Performed By: #### L [id number] ####Solar Design Engineer: JACKI MANCILLA ([id number])[facility] ([facility])[address] [place] [address] NEUTROPHILS ABSOLUTE 3.3 10*3/uL Normal 1.8-7.5 [facility] Comment on above: Performed By: #### L [id number] ####Solar Design Engineer: JACKI MANCILLA ([id number])[facility] ([facility])[address] [place] [address] Neutrophils/100 WBC (Bld) 53.5 % Normal 38.0-82.0 [facility] Comment on above: Performed By: #### L [id number] ####Solar Design Engineer: JACKI MANCILLA ([id number])[facility] ([facility])[address] [place] [address] NRBC 0.0 /100 WBCs Normal 0.0-2.0 [facility] Comment on above: Performed By: #### L [id number] ####Solar Design Engineer: JACKI MANCILLA ([id number])[facility] ([facility])[address] [place] [address] Platelet mean volume (Bld) [Entitic vol] 11.7 fL Normal 9.0-12.7 [facility] Comment on above: Performed By: #### L [id number] ####Solar Design Engineer: JACKI MANCILLA ([id number])[facility] ([facility])[address] [place] [address] Platelets (Bld) [#/Vol] 148 10*3/uL Normal 140-440 [facility] Comment on above: Performed By: #### L [id number] ####Solar Design Engineer: JACKI MANCILLA ([id number])[facility] ([facility])[address] [place] [address] RBC (Bld) [#/Vol] 3.37 10*6/uL Low 3.80-5.20 [facility] Comment on above: Performed By: #### L [id number] ####Solar Design Engineer: JACKI MANCILLA ([id number])[facility] ([facility])[address] [place] [address] WBC (Bld) [#/Vol] 6.2 10*3/uL Normal 3.6-10.7 [facility] Comment on above: Performed By: #### L [id number] ####Solar Design Engineer: JACKI MANCILLA ([id number])[facility])[address] [place] [address] Progress Noteon 12-05-2024 Progress Note Nutrition rescreen completed. Patient referred to the Dietitian due to wound consult for pressure injury. CLINTON Borden Normal [facility] Progress Note ---- -------- Attestation signed by Susan Reyes MD at 12/05/2024 3:03 PM I have seen, examined and evaluated the patient with the resident physician or nurse practitioner under my direct supervision. I have reviewed the resident physician's or nurse practitioner's note and agree with the assessment and plan of care as documented with this addendum. No acute overnight events. Resting comfortably. Afebrile overnight. Exam otherwise unchanged. Data: CT Head w/o contrast 12/04/24 No acute intracranial abnormalities or significant change from the prior study. Routine EEG 08/17/24 This EEG supports the diagnosis of a moderate diffuse encephalopathy. No epileptiform discharges or EEG seizures were seen during this recording. Routine EEG 08/15/18 This EEG supports the diagnosis of generalized epilepsy. There were infrequent spike wave discharges generalized during sleep. No EEG seizures were detected. Assessment and Plan: 79 yo female with past medical history of idiopathic generalized epilepsy, cerebellar atrophy, cognitive impairment, chronic dysarthria, hypothyroidism presents from SNF with breakthrough seizure in the setting of n/v and recent changes to ADM regimen. 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 -At this time, will continue VPA at 500mg BID, optimize LAC to 100mg in AM and 150mg in PM, and continue ETX at 250mg BID -Free VPA and LAC levels pending -Encourage outpatient [facility] neurology follow up upon discharge -Maintain seizure precautions Febrile -Afebrile past 24 hours -Urine culture with E Coli-tx per primary -At this time, patient denies LUCIO, photophobia, or meningismus No further neurology workup required at this time. Will sign off, please call if questions. -------- General Neurology Follow-up Date of Service: 12/05/2024 Chief complaint: Seizure Interval events: - Had CTH wo contrast yesterday which was negative for intracranial pathology. It did show similar cerebellar atrophy compared to prior imaging. - This AM, patient continues to deny any acute complaints. She notes that the wheezing she had yesterday has resolved. Denies any N/V or issues with appetite. The patient is able to clearly communicate why she is hospitalized. Objective: Exam: BP 119/57 Pulse 77 Temp 36.5 ?C (97.7 ?F) (Temporal) Resp 18 Ht 1.6 m (5' 3") Wt 81.6 kg (179 lb 14.3 oz) SpO2 93% BMI 31.87 kg/m? Constitutional: Well-nourished. Resting in bed in no distress. Head: Size/Trauma: normocephalic Neck: supple Heart: RRR, S1S2 Resp: CTAB GI: soft, non-distended Neuro: General: awake and alert Cranial nerves: I: smell Not tested II: visual hunt Full to confrontation II: pupils Equal, round, reactive to light III,VII: ptosis None III,IV,: extraocular muscles Full ROM V: mastication Normal V: facial light touch sensation Normal V,VII: corneal reflex Present VII: facial muscle function - upper Normal VII: facial muscle function - lower Normal VIII: hearing Normal IX: soft palate elevation Normal IX,X: gag reflex Not assessed XI: trapezius strength 4/5 XI: sternocleidomastoid strength Not assessed XI: neck flexion strength Not assessed XII: tongue strength Normal Motor exam: no involuntary movements or tremors noted Strength decreased symmetrically in UE (4/5) and LE (3/5) Tone: Normal Sensation was normal to light touch Cerebellar exam noted no tremors noted Gait: deferred (patient chronically wheelchair bound) Data: CTH wo contrast 12/04/24: Acute Findings: No hemorrhage, mass, or infarct. Chronic Changes: Scattered patchy foci of white matter hypoattenuation, most likely mild chronic microvascular ischemic changes. Ventricles and sulci: Similar to the prior study, there is disproportionate cerebellar atrophy which could relate to chronic antiepileptic medication use or other causes. No hydrocephalus. Other: The skull, included paranasal sinuses and orbits are normal. Neuroimaging and labs personally reviewed Assessment/Plan: Summary: Patient is a 79 year old female with pertinent medical history of idiopathic epilepsy (since childhood) and cerebellar atrophy who presented to [facility] on 12/03 following witnessed seizure at facility. She met criteria for simple sepsis on admission. Neurology consulted for seizure management. Breakthrough seizure (witnessed 12/03) possibly 2/2 acute illness vs recent changes to AED regimen Idiopat (more content not included)... Normal [facility] 30on 12-04-2024 30 Problem: Knowledge Deficit Goal: Patient/family/caregiver demonstrates understanding of disease process, treatment plan, medications, and discharge instructions Outcome: Progressing Problem: Potential for Compromised Skin Integrity Goal: Skin Integrity is Maintained or Improved Outcome: Progressing Goal: Nutritional status is improving Outcome: Progressing Problem: Urinary Incontinence Goal: Perineal skin integrity is maintained or improved Outcome: Progressing Normal [facility] [id number] 12-04-2024 [id number] Pt discussed 12-04-24 during interdisciplinary rounds. Pt admitted from [facility] due to seizures. Pt has a history of seizure disorder. No needs anticipated but SW available as needs arise. [facility] BASIC METABOLIC PANELon 11-16 Anion gap [Moles/Vol] 6 mmol/L Normal 3-13 [facility] Comment on above: Performed By: #### L AB24, LAB15 ####Solar Design Engineer: JACKI MANCILLA ([id number])[facility] ([address] Calcium [Mass/Vol] 7.8 mg/dL Low 8.8-10.0 [facility] Comment on above: Performed By: #### L AB24, LAB15 ####Solar Design Engineer: JACKI MANCILLA ([id number])[facility] ([facility])[address] [place] [address] Chloride [Moles/Vol] 113 mmol/L High 98-107 [facility] Comment on above: Performed By: #### L AB24, LAB15 ####Solar Design Engineer: JACKI MANCILLA ([id number])[facility])[address] [place] [address] CO2 [Moles/Vol] 21 mmol/L Low 23-31 [facility] Comment on above: Performed By: #### L AB24, LAB15 ####Solar Design Engineer: JACKI MANCILLA ([id number])[facility])[address] [place] [address] Creatinine [Mass/Vol] 0.73 mg/dL Normal 0.57-1.11 [facility] Comment on above: Performed By: #### L AB24, LAB15 ####Solar Design Engineer: JACKI MANCILLA ([phone])[facility])15 [place] [address] GLOMERULAR FILTRATION RATE ML/MIN/1.73 SQ M.PREDICTED 84.8 mL/min/1.73m*2 Normal >60.0 [facility] Comment on above: Result Comment: Calc ulation based on the Chronic Kidney Disease Epidemiology Collaboration (CKD-EPI) equation refit without adjustment for race Performed By: #### L AB24, LAB15 ####Solar Design Engineer: JACKI MANCILLA ([id number])[facility])[address] [place] [address] Glucose [Mass/Vol] 97 mg/dL Normal 82-115 [facility] Comment on above: Performed By: #### L AB24, LAB15 ####Solar Design Engineer: JACKI MANCILLA ([id number])[facility])[address] [place] [address] Potassium [Moles/Vol] 3.8 mmol/L Normal 3.5-5.1 [facility] Comment on above: Result Comment: [facility] potassium values may be up to 0.5 mmol/L lower than serum values. Performed By: #### L AB24, LAB15 ####Solar Design Engineer: JACKI MANCILLA ([id number])[facility] ([facility])[address] [place] [address] Sodium [Moles/Vol] 140 mmol/L Normal 136-145 [facility] Comment on above: Performed By: #### L AB24, LAB15 ####Solar Design Engineer: JACKI MANCILLA ([id number])[facility] ([facility])[address] [place] [address] Urea nitrogen [Mass/Vol] 21 mg/dL Normal 9-23 [facility] Comment on above: Performed By: #### L AB24, LAB15 ####Solar Design Engineer: JACKI MANCILLA ([id number])[facility] ([facility])[address] [place] [address] Basic metabolic 1998 panelon 12-04-2024 Anion gap [Moles/Vol] 6 mmol/L 3 - 13 mmol/L [facility] Calcium [Mass/Vol] 7.8 mg/dL Low 8.8 - 10. 0 mg/dL [facility] Chloride [Moles/Vol] 113 mmol/L High 98 - 10 7 mmol/L [facility] CO2 [Moles/Vol] 21 mmol/L Low 23 - 31 mmol/L [facility] Creatinine [Mass/Vol] 0.73 mg/dL 0.57 - 1.11 mg/dL [facility] GFR/1.73 sq M.predicted (S/P/Bld) [Vol rate/Area] 84.8 mL/min - PINF [facility] Comment on above: Calculation based on the Chronic Kidney Disease Epidemiology Collaboration (CKD-EPI) equation refit without adjustment for race Glucose [Mass/Vol] 97 mg/dL 82 - 115 mg/dL [facility] Interpretation and review of laboratory results Abnormal [facility] Potassium [Moles/Vol] 3.8 mmol/L 3.5 - 5.1 mmol/L [facility] Comment on above: Plasma potassium radha ues may be up to 0.5 mmol/L lower than serum values. Sodium [Moles/Vol] 140 mmol/L 136 - 145 mmol/L [facility] Urea nitrogen [Mass/Vol] 21 mg/dL 9 - 23 mg/dL [facility] CBC W Auto Differential pane l (Bld)on 02-20-2025 Basophils (Bld) [#/Vol] 0 10*3/uL 0.0 - 0.2 10*3/uL [facility] Basophils/100 WBC (Bld) 0.3 % 0.0 - 2.0 % [facility] Eosinophils (Bld) [#/Vol] 0 10*3/uL 0.0 - 0.5 10*3/uL [facility] Eosinophils/100 WBC (Bld) 0 % 0.0 - 6.0 % [facility] Erythrocyte distribution width (RBC) [Ratio] 13.4 % 11.5 - 15.0 % [facility] Hematocrit (Bld) [Volume fraction] 31.7 % Low 35.0 - 47.0 % [facility] Hemoglobin (Bld) [Mass/Vol] 10.3 g/dL Low 11.7 - 16.0 g/dL [facility] Immature granulocytes (Bld) [#/Vol] 0 10*3/uL NINF - 0.1 10*3/uL [facility] Immature granulocytes/100 WBC (Bld) 0.4 % 0.0 - 2.0 % [facility] Interpretation and review of laboratory results Abnormal [facility] Lymphocytes (Bld) [#/Vol] 1.2 10*3/uL 1.0 - 4.3 10*3/uL [facility] Lymphocytes/100 WBC (Bld) 16.4 % 15.0 - 45.0 % [facility] MCH (RBC) [Entitic mass] 28.9 pg 26.0 - 34.0 pg [facility] MCHC (RBC) [Mass/Vol] 32.5 % 30.5 - 36.0 % [facility] MCV (RBC) [Entitic vol] 89 fL 77.0 - 99.0 fL [facility] Monocytes (Bld) [#/Vol] 0.8 10*3/uL 0.0 - 0.9 10*3/uL [facility] Monocytes/100 WBC (Bld) 10.5 % 5.0 - 13.0 % [facility] Neutrophils (Bld) [#/Vol] 5.4 10*3/uL 1.8 - 7.5 10*3/uL [facility] Neutrophils/100 WBC (Bld) 72.4 % 38.0 - 82.0 % [facility] Nucleated RBC/100 WBC (Bld) [Ratio] 0 % [facility] Platelet mean volume (Bld) [Entitic vol] 11.9 fL 9.0 - 12.7 fL [facility] Platelets (Bld) [#/Vol] 150 10*3/uL 140 - 440 10*3/uL [facility] RBC (Bld) [#/Vol] 3.56 10*6/uL Low 3.80 - 5.2 0 10*6/uL [facility] WBC (Bld) [#/Vol] 7.5 10*3/uL 3.6 - 10.7 10*3/uL [facility] CBC WITH AUTO DIFFERENTIALon 12-04-2024 Basophils (Bld) [#/Vol] 0.0 10*3/uL Normal 0.0-0.2 [facility] Comment on above: Performed By: #### L [id number] ####Solar Design Engineer: JACKI MANCILLA ([id number])[facility])[address] [place] [address] Basophils/100 WBC (Bld) 0.3 % Normal 0.0-2.0 [facility] Comment on above: Performed By: #### L [id number] ####Solar Design Engineer: JACKI MANCILLA ([id number])[facility])[address] [place] [address] Eosinophils (Bld) [#/Vol] 0.0 10*3/uL Normal 0.0-0.5 [facility] Comment on above: Performed By: #### L [id number] ####Solar Design Engineer: JACKI MANCILLA ([id number])[facility])[address] [place] [address] Eosinophils/100 WBC (Bld) 0.0 % Normal 0.0-6.0 [facility] Comment on above: Performed By: #### L [id number] ####Solar Design Engineer: JACKI MANCILLA ([id number])[facility])[address] [place] [address] Erythrocyte distribution width (RBC) [Ratio] 13.4 % Normal 11.5-15.0 [facility] Comment on above: Performed By: #### L [id number] ####Solar Design Engineer: JACKI MANCILLA ([id number])[facility])[address] [place] [address] Hematocrit (Bld) [Volume fraction] 31.7 % Low 35.0-47.0 [facility] Comment on above: Performed By: #### L [id number] ####Solar Design Engineer: JACKI MANCILLA ([id number])[facility])[address] [place] [address] Hemoglobin (Bld) [Mass/Vol] 10.3 g/dL Low 11.7-16.0 [facility] Comment on above: Performed By: #### L [id number] ####Solar Design Engineer: JACKI MANCILLA ([id number])[address] IMMATURE GRANS % 0.4 % Normal 0.0-2.0 [facility] Comment on above: Performed By: #### L [id number] ####Solar Design Engineer: JACKI MANCILLA ([id number])[address] IMMATURE GRANS ABSOLUTE 0.0 10*3/uL Normal <0.1 [facility] Comment on above: Performed By: #### L [id number] ####Solar Design Engineer: JACKI MANCILLA ([id number])[address] Lymphocytes (Bld) [#/Vol] 1.2 10*3/uL Normal 1.0-4.3 [facility] Comment on above: Performed By: #### L [id number] ####Solar Design Engineer: JACKI MANCILLA ([id number])[facility])[address] [place] [address] Lymphocytes/100 WBC (Bld) 16.4 % Normal 15.0-45.0 [facility] Comment on above: Performed By: #### L [id number] ####Solar Design Engineer: JACKI MANCILLA ([id number])[facility])[address] [place] [address] MCH (RBC) [Entitic mass] 28.9 pg Normal 26.0-34.0 [facility] Comment on above: Performed By: #### L [id number] ####Solar Design Engineer: JACKI MANCILLA ([id number])[facility])[address] [place] [address] MCHC 32.5 % Normal 30.5-36.0 [facility] Comment on above: Performed By: #### L [id number] ####Solar Design Engineer: JACKI MANCILLA ([id number])[facility])[address] [place] [address] MCV (RBC) [Entitic vol] 89.0 fL Normal 77.0-99.0 [facility] Comment on above: Performed By: #### L [id number] ####Solar Design Engineer: JACKI MANCILLA ([id number])[facility])[address] [place] [address] Monocytes (Bld) [#/Vol] 0.8 10*3/uL Normal 0.0-0.9 [facility] Comment on above: Performed By: #### L [id number] ####Solar Design Engineer: JACKI MANCILLA ([id number])[facility])[address] [place] [address] Monocytes/100 WBC (Bld) 10.5 % Normal 5.0-13.0 [facility] Comment on above: Performed By: #### L [id number] ####Solar Design Engineer: JACKI MANCILLA ([id number])[facility])[address] [place] [address] NEUTROPHILS ABSOLUTE 5.4 10*3/uL Normal 1.8-7.5 [facility] Comment on above: Performed By: #### L [id number] ####Solar Design Engineer: JACKI MANCILLA ([id number])[facility])[address] [place] [address] Neutrophils/100 WBC (Bld) 72.4 % Normal 38.0-82.0 [facility] Comment on above: Performed By: #### L [id number] ####Solar Design Engineer: JACKI MANCILLA ([id number])[facility])[address] [place] [address] NRBC 0.0 /100 WBCs Normal 0.0-2.0 [facility] Comment on above: Performed By: #### L [id number] ####Solar Design Engineer: JACKI MANCILLA ([id number])[facility])[address] [place] [address] Platelet mean volume (Bld) [Entitic vol] 11.9 fL Normal 9.0-12.7 [facility] Comment on above: Performed By: #### L [id number] ####Solar Design Engineer: JACKI MANCILLA ([id number])[facility])[address] [place] [address] Platelets (Bld) [#/Vol] 150 10*3/uL Normal 140-440 [facility] Comment on above: Performed By: #### L [id number] ####Solar Design Engineer: JACKI MANCILLA ([id number])[facility])[address] [place] [address] RBC (Bld) [#/Vol] 3.56 10*6/uL Low 3.80-5.20 [facility] Comment on above: Performed By: #### L [id number] ####Solar Design Engineer: JACKI MANCILLA ([id number])[facility])[address] [place] [address] WBC (Bld) [#/Vol] 7.5 10*3/uL Normal 3.6-10.7 [facility] Comment on above: Performed By: #### L [id number] ####Solar Design Engineer: JACKI MANCILLA ([id number])[facility])[address] [place] [address] CT HEAD WO IV CONTRASTon CT HEAD WO IV CONTRAST Patient Name: KATHERYN GRANADOS : 1945 Exam Date/Time: 12/04/2024 14:21 Procedure: CT HEAD WO IV CONTRAST Ordering Provider: HAIR JARED Reason For Exam: Recurrent seizure with transient AMS CT HEAD WITHOUT CONTRAST CLINICAL HISTORY: Recurrent seizure with transient AMS COMPARISON: 06/06/2018 TECHNIQUE: Helical CT of the brain without contrast. Dose reduction was employed with automated exposure control. FINDINGS: Acute Findings: No hemorrhage, mass, or infarct. Chronic Changes: Scattered patchy foci of white matter hypoattenuation, most likely mild chronic microvascular ischemic changes. Ventricles and sulci: Similar to the prior study, there is disproportionate cerebellar atrophy which could relate to chronic antiepileptic medication use or other causes. No hydrocephalus. Other: The skull, included paranasal sinuses and orbits are normal. IMPRESSION: No acute intracranial abnormalities or significant change from the prior study. Report Dictated on Electronically Signed By: Arpit Russo MD Electronically Signed Date/Time: 12/04/2024 2:43 PM EST Recurrent seizure with transient AMS Normal [facility] CT Head WO contraston 2024 No acute intracranial abnormalities or significant change from the prior study. Report Dictated on Electronically Signed By: Arpit Russo MD Electronically Signed Date/Time: 12/04/2024 2:43 PM [facility] Patient Name: KATHERYN YIP : 1945 Exam Date/Time: 12/04/2024 14:21 Procedure: CT HEAD WO IV CONTRAST Ordering Provider: HAIR JARED Reason For Exam: Recurrent seizure with transient AMS CT HEAD WITHOUT CONTRAST CLINICAL HISTORY: Recurrent seizure with transient AMS COMPARISON: 06/06/2018 TECHNIQUE: Helical CT of the brain without contrast. Dose reduction was employed with automated exposure control. FINDINGS: Acute Findings: No hemorrhage, mass, or infarct. Chronic Changes: Scattered patchy foci of white matter hypoattenuation, most likely mild chronic microvascular ischemic changes. Ventricles and sulci: Similar to the prior study, there is disproportionate cerebellar atrophy which could relate to chronic antiepileptic medication use or other causes. No hydrocephalus. Other: The skull, included paranasal sinuses and orbits are normal. [facility] Arpit Russo M D - 12/04/2024 [facility] 1945 [id number] Exam Date/Time: 12/04/2024 14:21 Procedure: CT HEAD WO IV CONTRAST Ordering Provider: HAIR JARED Reason For Exam: Recurrent seizure with transient AMS CT HEAD WITHOUT CONTRAST CLINICAL HISTORY: Recurrent seizure with transient AMS COMPARISON: 06/06/2018 TECHNIQUE: Helical CT of the brain without contrast. Dose reduction was employed with automated exposure control. FINDINGS: Acute Findings: No hemorrhage, mass, or infarct. Chronic Changes: Scattered patchy foci of white matter hypoattenuation, most likely mild chronic microvascular ischemic changes. Ventricles and sulci: Similar to the prior study, there is disproportionate cerebellar atrophy which could relate to chronic antiepileptic medication use or other causes. No hydrocephalus. Other: The skull, included paranasal sinuses and orbits are normal. IMPRESSION: No acute intracranial abnormalities or significant change from the prior study. Report Dictated on Electronically Signed By: Arpit Russo MD Electronically Signed Date/Time: 12/04/2024 2:43 PM EST [facility] Radiology Study observation (narrative) [facility] CT Head WO contrastOrdered B y: Arpit Russo on 12-04-2024 [facility] [employer] Work Phone: Consulton 12-04-2024 Consult ---- -------- Attestation signed by Susan Reyes MD at 12/04/2024 3:20 PM I have seen, examined and evaluated the patient with the resident physician or nurse practitioner under my direct supervision. I have reviewed the resident physician's or nurse practitioner's note and agree with the assessment and plan of care as documented with the following addendum. HPI, social history, family history, and ROS have been reviewed and verified. Briefly, patient is a 79 yo female with past medical history of idiopathic generalized epilepsy, cerebellar atrophy, cognitive impairment, chronic dysarthria, hypothyroidism presents from SNF with breakthrough seizure in the setting of n/v and recent changes to ADM regimen. Patient follows with [facility] neurology and has known intractable epilepsy, now on three AED's. It is unclear what her baseline seizure frequency is. She has been on VPA, PHT, ETX in the past. She was relatively recently weaned off PHT and started on lacosamide 100mg BID. Her VPA level in 09/07 was supratherapeutic at 120 and it appears her dose of 500mg TID may have been reduced to 250mg TID. It is difficult to discern actual AED regimen as there is discrepancy between SNF med rec and last neurology note. Patient herself is unable to provide much history. Per notes, patient had 20 minute episode of decreased responsiveness with body rigidity. She received two doses of intranasal versed. Her last seizure prior to this one was last month. She did have an episode of emesis the night prior to presentation and was febrile at 101.8 here. UA with + leuks, BC pending, CXR negative. COVID negative. CT head negative for acute abn. Neurologic exam as below (Examined independently, any additions, pertinent findings, or revisions noted here) alert, oriented x2 speech: normal in context, dysarthric memory: very limited historian cranial nerves II-XII: intact motor strength: 4+-5/5 b/l UE, 3+/5 b/l LE no involuntary movements or tremors sensation: intact to light touch cerebellar: [id number] slow but intact gait: deferred secondary to fall risk reflexes: full and symmetric plantar responses: downgoing bilaterally CT Head w/o contrast 12/04/24 No acute intracranial abnormalities or significant change from the prior study. Routine EEG 08/17/24 This EEG supports the diagnosis of a moderate diffuse encephalopathy. No epileptiform discharges or EEG seizures were seen during this recording. Routine EEG 08/15/18 This EEG supports the diagnosis of generalized epilepsy. There were infrequent spike wave discharges generalized during sleep. No EEG seizures were detected. Assessment and Plan: 79 yo female with past medical history of idiopathic generalized epilepsy, cerebellar atrophy, cognitive impairment, chronic dysarthria, hypothyroidism presents from [facility] with breakthrough seizure in the setting of n/v and recent changes to ADM regimen. 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 -------- General Neurology Consult Patient: Katheryn Chino Date of : 1945 Acct: [id number] PCP: Orville Mendoza DO Date of Admission: 12/03/2024 Date of Service: Pt seen/examined on 12/04/24 Chief Complaint: Breakthrough seizure History Of Present Illness: 79 y.o. female with past medical history significant for idiopathic generalized epilepsy (since childhood), cerebellar atrophy (on MRI in 2018, thought to be 2/2 chronic Dilantin use), wheelchair dependence, chronic dysarthria, hypothyroidism who presented from [facility] to [facility] 12/03 with complaint of breakthrough seizure. Patient follows with Dr. Jimenez from [facility] and has been having generalized tonic-clonic seiz (more content not included)... [email or web address] LACOSAMIDE (BKR QUEST)on QUEST LACOSAMIDE <0.5 Normal [facility] [employer] [facility] Comment on above: Result Comment: (Not e) Expected concentrations of Lacosamide in patients receiving recommended daily dosages: Up to 15.0 mcg/mL.Toxic range not established. This test was developed and its analytical performance characteristics have been determined by [employer]. It has not been cleared or approved by the FDA. This assay has been validated pursuant to the CLIA regulations and is used for clinical purposes. T[employer]A [employer] [facility] [place] [address],[address] [place] [id number] Jeff Gutiérrez MD, PhD Test performed by [employer] [facility] MEDEM [facility] [address] [place], [place] [address] Solar Design Engineer: Jeff Gutiérrez MD, PhD Test Reported by [facility], [employer] [facility], [address] [place] [address] Jorge L Guerrero M.D., Ph.D., Director of Laboratories , CLIA [id number] Performed By: #### L [id number] #### [employer] ([facility]) [address] [place] [address] [facility] Laboratory - Drug toxicology on 12-04-2024 Valproate [Mass/Vol] 18 ug/mL Low 50 - 12 5 ug/mL [employer] No Panel Informationon 12-04 Interpretation and review of laboratory results Abnormal [employer] Toxicity is seen at concentrations >175 ug/mL [facility] Nursing Noteon 12-04-2024 Nursing Note Wound Care consulted for Pressure Injury Prevention. Pt's Melo score= 16 on 12/04 Pt's pressure points assessed. Pt sitting in chair. OT present in room and assisted pt with standing for assessment of buttocks/coccyx. Pt's Heels, Buttocks/coccyx, Back, Elbows, Occiput and ears all intact. Prevention Measures in place, including: Ajo sheet with pillows, Foam heel protectors (obtained and applied), Heels elevated off bed on pillows, Sacral foam(obtained and applied), Zinc/Moisture Barrier ointment (obtained and applied), Waffle chair cushion (obtained for pt and placed under pt in chair). Skin Care precaution order set in place. Dietitian consult N/A, subscore=3. PT/OT consult in place. D/W nursing staff. Will continue to follow pt. Please [employer] for any questions or concerns. Aliza Goins, RN, BSN, CWCN Normal [facility] Progress Noteon 12-04-2024 Progress Note Patient seen and examined at bedside. Refer to Dr. Garza H&P for further details. See new orders. Receiving abx for likely UTI. From facility. Neurology consulted for breakthrough seizure. Denise Hair D.O. Division of Hospitalist Medicine [facility] Normal [facility] Respiratory pathogens DNA an d RNA panel RUTH+non-probe (Nph)on 12-04-2024 Adenovirus Not detected Not Detected [facility] B. pertussis DNA RUTH+probe Ql (Unsp spec) Not detected Not Detected [facility] Bordetella parapertussis Not detected Not Detected [facility] Chlamydia pneumoniae Not detected Not Detected [facility] Coronavirus 229E Not detected Not Detected [facility] Coronavirus HKU1 Not detected Not Detected [facility] Coronavirus NL63 Not detected Not Detected [facility] Coronavirus OC43 Not detected Not Detected [facility] FLUAV RNA RUTH+non-probe Ql (Nph) Not detected Not Detected [facility] FLUBV RNA RUTH+non-probe Ql (Nph) Not detected Not Detected [facility] Human Metapneumovirus Not detected Not Detected [facility] Human Rhinovirus/Enterovirus Not detected Not Detected [facility] Interpretation and review of laboratory results Normal [facility] Mycoplasma pneumoniae Not detected Not Detected [facility] Parainfluenza 1 Not detected Not Detected [facility] Parainfluenza 2 Not detected Not Detected [facility] Parainfluenza 3 Not detected Not Detected [facility] Parainfluenza 4 Not detected Not Detected [facility] Respiratory Syncytial Virus Not detected Not Detected [facility] SARS-CoV-2 (COVID-19) RNA RUTH+non-probe Ql (Nph) Not detected Not Detected [facility] Methodology: Multipl ex PCR [facility] VALPROIC ACID TOTALon 2024 VALPROIC ACID 18 ug/mL Low 50-125 [facility] [employer] [facility] Comment on above: Result Comment: RD Chu COMMENTS: Toxicity is seen at concentrations >175 ug/mL Performed By: #### L AB24, LAB15 ####Solar Design Engineer: JACKI MANCILLA ([id number])[facility] ([facility] VALPROIC ACID TOTAL AND FREE (BKR QUEST)on 12-04-2024 QUEST VALPROIC ACID 20.4 mg/L Low 50.0-100.0 [facility] [employer] [facility] Comment on above: Result Comment: Test Performed by Reji Álvarez, [facility], [address] [place] [address] Jorge L Guerrero M.D., Ph.D., Director of Laboratories , [place] [id number] Performed By: #### L [id number] ####[facility] (AMDBEAKER)[address] [place] [address] [facility] QUEST VALPROIC ACID, FREE <4.0 Low 4.8-17.3 [facility] [employer] [facility] Comment on above: Result Comment: Note: Non-linear drug binding properties result in the fraction of Free Valproic Acid increasing as total drug increases. The free fraction may range from 5% to 25% for the total drug range of 30-160 mg/L. Performed By: #### L AB172 ####[facility] (AMDBEAKER)[address] [place] [address] [facility] Absolute lymphocyte countOrd ered By: Damir Mckee on 12-03-2024 Lymphocytes Auto (Unsp spec) [#/Vol] 0.66 10*3/uL Low 0.83-4.51 [facility] Absolute neutrophil countOrd ered By: Damir Mckee on 12-03-2024 Neutrophils (Bld) [#/Vol] 12.4 10*3/uL High 2.0-7.7 [facility] Automated lymphocyte count a s percentage of total leukocytesOrdered By: Damir Mckee on 12-03-2024 Lymphocytes/100 WBC Auto (Unsp spec) 4.8 % Low 19-41 [facility] BLOOD CULTUREon 12-03-2024 Bacteria identified Cx Nom (Bld) BLOOD CULTURE Reference No growth at 5 days ORDER COMMENTS: Blood Collection Site: Left Forearm [ S = SUSCEPTIBLE R = RESISTANT I = INTERMEDIATE S-DD = Susceptible-dose dependent NS = Non-susceptible NO = No Interpretation ] Normal [facility] Comment on above: Performed By: #### L AB239, [id number] #### Solar Design Engineer: JACKI MANCILLA ([id number]) [facility]) [address] [place] [address] Bacteria identified Cx Nom (Bld) BLOOD CULTURE Reference No growth at 5 days ORDER COMMENTS: Blood Collection Site: Left Hand [ S = SUSCEPTIBLE R = RESISTANT I = INTERMEDIATE S-DD = Susceptible-dose dependent NS = Non-susceptible NO = No Interpretation ] Normal [facility] Comment on above: Performed By: #### L [id number] ####Solar Design Engineer: JACKI MANCILLA ([id number])[facility] ([facility])[address] [place] [address] Basic Metabolic Profile (BMP )on 12-03-2024 BUN/CRE 29.9 RATIO High 10-20 [facility] Comment on above: Performed By: #### L 100.0100, L501.8100, L501.7700, L500.4050 #### [facility] [address] [place], [address] CA,Total 7.4 mg/dL Low 8.5-10.1 [facility] Comment on above: Performed By: #### L 100.0100, L501.8100, L501.7700, L500.4050 #### [facility] [address] [place], [address] Chloride [Moles/Vol] 114 mmol/L High 98-107 [facility] Comment on above: Performed By: #### L 100.0100, L501.8100, L501.7700, L500.4050 #### [facility] [address] [place], [address] CO2 [Moles/Vol] 21.0 mmol/L Normal 21.0-32.0 [facility] Comment on above: Performed By: #### L 100.0100, L501.8100, L501.7700, L500.4050 #### [facility] [address] [place], [address] Creatinine [Mass/Vol] 0.64 mg/dL Normal 0.55-1.02 [facility] Comment on above: Result Comment: The validity of the calculated GFR GFRAA in patients over 70 years has not been determined. Clinical correlation is essential. Performed By: #### L 100.0100, L501.8100, L501.7700, L500.4050 #### [facility] [address] [place], [address] ECRCL 63.94 ml/min Normal [facility] Comment on above: Performed By: #### L 100.0100, L501.8100, L501.7700, L500.4050 #### [facility] [address] [place], [address] EST GFR - AA 116 mL/min Normal >60 [facility] Comment on above: Result Comment: Afri can Kyrgyz GFR Calc Performed By: #### L 100.0100, L501.8100, L501.7700, L500.4050 #### [facility] [address] [place], [address] GAP 8 Normal 5-15 [facility] Comment on above: Performed By: #### L 100.0100, L501.8100, L501.7700, L500.4050 #### [facility] [address] [place], [address] GFR/1.73 sq M.predicted among non-blacks MDRD (S/P/Bld) [Vol rate/Area] 96 mL/min/{1.73_m2} Normal >60 [facility] Comment on above: Result Comment: Non- GFR Calc Performed By: #### L 100.0100, L501.8100, L501.7700, L500.4050 #### [facility] [address] [place], [address] Glucose [Mass/Vol] 141 mg/dL High 74-106 [facility] Comment on above: Result Comment: Fast ing Glucose result greater than or equal to 126 mg/dL suggests DIABETES MELLITUS per A.D.A. criteria. Performed By: #### L 100.0100, L501.8100, L501.7700, L500.4050 #### [facility] [address] [place], [address] Potassium [Moles/Vol] 3.3 mmol/L Low 3.5-5.1 [facility] Comment on above: Performed By: #### L 100.0100, L501.8100, L501.7700, L500.4050 #### [facility] [address] [place], [address] Sodium [Moles/Vol] 143 mmol/L Normal 136-145 [facility] Comment on above: Performed By: #### L 100.0100, L501.8100, L501.7700, L500.4050 #### [facility] [address] [place], [address] Urea nitrogen [Mass/Vol] 19 mg/dL High 7-18 [facility] Comment on above: Performed By: #### L 100.0100, L501.8100, L501.7700, L500.4050 #### [facility] [address] [place], [address] Basophil percentageOrdered B y: Damir Mckee on 12-03-2024 Basophils/100 WBC (Bld) 0.3 % 0-1 [facility] Blood urea nitrogen (BUN)/cr eatinine ratioOrdered By: Damir Mckee on 12-03-2024 Urea nitrogen/Creatinine [Mass ratio] 29.9 mg/mg High 10-20 [facility] CBC W Auto Differential pane l (Bld)Ordered By: Charley Traore on 12-03-2024 Basophils (Bld) [#/Vol] 0 10*3/uL 0.0 - 0.2 10*3/uL [facility] Basophils/100 WBC (Bld) 0.1 % 0.0 - 2.0 % [facility] Eosinophils (Bld) [#/Vol] 0 10*3/uL 0.0 - 0.5 10*3/uL [facility] Eosinophils/100 WBC (Bld) 0 % 0.0 - 6.0 % [facility] Erythrocyte distribution width (RBC) [Ratio] 13.2 % 11.5 - 15.0 % [facility] Hematocrit (Bld) [Volume fraction] 36.9 % 35.0 - 47.0 % [facility] Hemoglobin (Bld) [Mass/Vol] 11.6 g/dL Low 11.7 - 16.0 g/dL [facility] Immature granulocytes (Bld) [#/Vol] 0.1 10*3/uL High NINF - 0.1 10*3/uL [facility] Immature granulocytes/100 WBC (Bld) 0.5 % 0.0 - 2.0 % [facility] Interpretation and review of laboratory results Abnormal [facility] Lymphocytes (Bld) [#/Vol] 0.6 10*3/uL Low 1.0 - 4.3 10*3/uL [facility] Lymphocytes/100 WBC (Bld) 5.8 % Low 15.0 - 45.0 % [facility] MCH (RBC) [Entitic mass] 28.2 pg 26.0 - 34.0 pg [facility] MCHC (RBC) [Mass/Vol] 31.4 % 30.5 - 36.0 % [facility] MCV (RBC) [Entitic vol] 89.6 fL 77.0 - 99.0 fL [facility] Monocytes (Bld) [#/Vol] 0.6 10*3/uL 0.0 - 0.9 10*3/uL [facility] Monocytes/100 WBC (Bld) 5.9 % 5.0 - 13.0 % [facility] Neutrophils (Bld) [#/Vol] 9.6 10*3/uL High 1.8 - 7.5 10*3/uL [facility] Neutrophils/100 WBC (Bld) 87.7 % High 38.0 - 82.0 % [facility] Nucleated RBC/100 WBC (Bld) [Ratio] 0 % [facility] Platelet mean volume (Bld) [Entitic vol] 11.7 fL 9.0 - 12.7 fL [facility] Platelets (Bld) [#/Vol] 202 10*3/uL 140 - 440 10*3/uL [facility] RBC (Bld) [#/Vol] 4.12 10*6/uL 3.80 - 5.2 0 10*6/uL [facility] WBC (Bld) [#/Vol] 10.9 10*3/uL High 3.6 - 10.7 10*3/uL [facility] CBC W/Diff, Automatedon 11-15 Absolute Lymph 0.66 X10 3/uL Low 0.83-4.51 [facility] Comment on above: Performed By: #### L 501.7700 #### [facility] [address] [facility] [place], [address] Absolute Neut 12.4 X10 3/uL High 2.0-7.7 [facility] Comment on above: Performed By: #### L 501.7700 #### [facility] [address] [facility] [place], [address] Basophils/100 WBC (Bld) 0.3 % Normal 0-1 [facility] Comment on above: Performed By: #### L 501.7700 #### [facility] [address] [facility] [place], [address] Eosinophils/100 WBC (Bld) 0.0 % Normal 0-5 [facility] Comment on above: Performed By: #### L 501.7700 #### [facility] [address] [facility] [place], [address] Erythrocyte distribution width (RBC) [Ratio] 13.2 % Normal 11.6-14.6 [facility] Comment on above: Performed By: #### L 501.7700 #### [facility] [address] [place], [address] Hematocrit (Bld) [Volume fraction] 36.5 % Low 37-47 [facility] Comment on above: Performed By: #### L 501.7700 #### [facility] [address] [place], [address] Hemoglobin (Bld) [Mass/Vol] 11.9 g/dL Low 12.0-15.0 [facility] Comment on above: Performed By: #### L 501.7700 #### [facility] [address] [place], [address] IG% 0.400 Normal 0.0-0.9 [facility] Comment on above: Result Comment: IG% - Immature Granulocytes (promyelocytes, myelocytes and metamyelocytes) > 1% indicates that a LEFT SHIFT is Present. Performed By: #### L 501.7700 #### [facility] [address], [address] Lymphocytes/100 WBC (Bld) 4.8 % Low 19-41 [facility] Comment on above: Performed By: #### L 501.7700 #### [facility] [address] [place], [address] MCH (RBC) [Entitic mass] 29.1 pg Normal 27.0-32.0 [facility] Comment on above: Performed By: #### L 501.7700 #### [facility] [address] [place], [address] MCHC (RBC) [Mass/Vol] 32.6 g/dL Normal 32-36 [facility] Comment on above: Performed By: #### L 501.7700 #### [facility] [address] [place], [address] MCV (RBC) [Entitic vol] 89.2 fL Normal 81-99 [facility] Comment on above: Performed By: #### L 501.7700 #### [facility] [address] [place], [address] Monocytes/100 WBC (Bld) 4.8 % Normal 0-10 [facility] Comment on above: Performed By: #### L 501.7700 #### [facility] [address] [place], [address] Neutrophils/100 WBC (Bld) 89.7 % High 47-70 [facility] Comment on above: Performed By: #### L 501.7700 #### [facility] [address] [place], [address] Nucleated RBC (Bld) [#/Vol] 0 10*3/uL Normal 0-5 [facility] Comment on above: Performed By: #### L 501.7700 #### [facility] [address] [place], [address] Platelet mean volume (Bld) [Entitic vol] 11.9 fL Normal 6.2-12.0 [facility] Comment on above: Performed By: #### L 501.7700 #### [facility] [address] [place], [address] Platelets (Bld) [#/Vol] 199 10*3/uL Normal 150-450 [facility] Comment on above: Performed By: #### L 501.7700 #### [facility] [address] [place], [address] RBC (Bld) [#/Vol] 4.09 10*6/uL Low 4.2-5.4 [facility] Comment on above: Performed By: #### L 501.7700 #### [facility] [address] [place], [address] RDW SD 43.0 fl Normal 35.1-43.9 [facility] Comment on above: Performed By: #### L 501.7700 #### [facility] [address] [place], [address] WBC (Bld) [#/Vol] 13.8 10*3/uL High 4.4-11.0 [facility] Comment on above: Performed By: #### L 501.7700 #### [facility] [address] [place], [address] CBC WITH AUTO DIFFERENTIALon 12-03-2024 Basophils (Bld) [#/Vol] 0.0 10*3/uL Normal 0.0-0.2 [facility] Comment on above: Performed By: #### L [id number] ####Solar Design Engineer: JACKI MANCLILA ([id number])[facility] ([facility])[address] [place] [address] Basophils/100 WBC (Bld) 0.1 % Normal 0.0-2.0 [facility] Comment on above: Performed By: #### L [id number] ####Solar Design Engineer: JACKI MANCILLA ([id number])[facility])[address] [place] [address] Eosinophils (Bld) [#/Vol] 0.0 10*3/uL Normal 0.0-0.5 [facility] Comment on above: Performed By: #### L [id number] ####Solar Design Engineer: JACKI MANCILLA ([id number])[facility])[address] [place] [address] [place] Eosinophils/100 WBC (Bld) 0.0 % Normal 0.0-6.0 [facility] Comment on above: Performed By: #### L [id number] ####Solar Design Engineer: JACKI [id number])[facility] [address] Erythrocyte distribution width (RBC) [Ratio] 13.2 % Normal 11.5-15.0 [facility] Comment on above: Performed By: #### L [id number] ####Solar Design Engineer: JACKI MANCILLA ([id number])[facility])[address] [place] [address] Hematocrit (Bld) [Volume fraction] 36.9 % Normal 35.0-47.0 [facility] Comment on above: Performed By: #### L [id number] ####Solar Design Engineer: JACKI MANCILLA ([id number])[facility])[address] [place] [address] Hemoglobin (Bld) [Mass/Vol] 11.6 g/dL Low 11.7-16.0 [facility] Comment on above: Performed By: #### L [id number] ####Solar Design Engineer: JACKI MANCILLA ([id number])[facility])[address] [place] [address] IMMATURE GRANS % 0.5 % Normal 0.0-2.0 [facility] Comment on above: Performed By: #### L [id number] ####Solar Design Engineer: JACKI MANCILLA ([id number])[facility])[address] [place] [address] IMMATURE GRANS ABSOLUTE 0.1 10*3/uL High <0.1 [facility] Comment on above: Performed By: #### L [id number] ####Solar Design Engineer: JACKI MANCILLA ([id number])[facility])[address] [place] [address] Lymphocytes (Bld) [#/Vol] 0.6 10*3/uL Low 1.0-4.3 [facility] Comment on above: Performed By: #### L [id number] ####Solar Design Engineer: JACKI MANCILLA ([id number])[facility])[address] [place] [address] [place] Lymphocytes/100 WBC (Bld) 5.8 % Low 15.0-45.0 [facility] Comment on above: Performed By: #### L [id number] ####Solar Design Engineer: JACKI MANCILLA ([id number])[facility])[address] [place] [address] MCH (RBC) [Entitic mass] 28.2 pg Normal 26.0-34.0 [facility] Comment on above: Performed By: #### L [id number] ####Solar Design Engineer: JACKI MANCILLA ([id number])[facility])[address] [place] [address] MCHC 31.4 % Normal 30.5-36.0 [facility] Comment on above: Performed By: #### L [id number] ####Solar Design Engineer: JACKI MANCILLA ([id number])[facility])[address] [place] [address] MCV (RBC) [Entitic vol] 89.6 fL Normal 77.0-99.0 S [facility] Comment on above: Performed By: #### L [id number] ####Solar Design Engineer: JACKI MANCILLA ([id number])[facility])[address] [place] [address] Monocytes (Bld) [#/Vol] 0.6 10*3/uL Normal 0.0-0.9 [facility] Comment on above: Performed By: #### L [id number] ####Solar Design Engineer: JACKI MANCILLA ([id number])[facility])[address] [place] [address] Monocytes/100 WBC (Bld) 5.9 % Normal 5.0-13.0 S [facility] Comment on above: Performed By: #### L [id number] ####Solar Design Engineer: JACKI MANCILLA ([id number])[facility])[address] [place] [address] NEUTROPHILS ABSOLUTE 9.6 10*3/uL High 1.8-7.5 [facility] Comment on above: Performed By: #### L [id number] ####Solar Design Engineer: JACKI MANCILLA ([id number])[facility] ([facility])[address] [place] [address] Neutrophils/100 WBC (Bld) 87.7 % High 38.0-82.0 [facility] Comment on above: Performed By: #### L [id number] ####Solar Design Engineer: JACKI MANCILLA ([id number])[facility] ([facility])[address] [place] [address] NRBC 0.0 /100 WBCs Normal 0.0-2.0 [facility] Comment on above: Performed By: #### L [id number] ####Solar Design Engineer: JACKI MANCILLA ([id number])[facility])[address] [place] [address] Platelet mean volume (Bld) [Entitic vol] 11.7 fL Normal 9.0-12.7 [facility] Comment on above: Performed By: #### L [id number] ####Solar Design Engineer: JACKI MANCILLA ([id number])[facility] ([facility])[address] [place] [address] Platelets (Bld) [#/Vol] 202 10*3/uL Normal 140-440 [facility] Comment on above: Performed By: #### L [id number] ####Solar Design Engineer: JACKI MANCILLA ([id number])[facility] ([facility])[address] [place] [address] RBC (Bld) [#/Vol] 4.12 10*6/uL Normal 3.80-5.20 [facility] Comment on above: Performed By: #### L [id number] ####Solar Design Engineer: JACKI MANCILLA ([id number])[facility] ([facility])[address] [place] [address] [place] WBC (Bld) [#/Vol] 10.9 10*3/uL High 3.6-10.7 [facility] Comment on above: Performed By: #### L [id number] ####Solar Design Engineer: JACKI MANCILLA ([id number])[facility] ([facility])[address] [place] [address] Kuldip 12-03-2024 CNPN Telephone (NEUSES) -------- CLARITAKATHERYN SAMPSON ([id number]) 1945 F Date Time Provider Department 12/03/24 JAYANT JIMENEZ During your visit today, we recorded the following information about you: Franchesca Arana 12/03/2024 2:43 PM Signed Received patients seizure monitoring sheet from [facility]. Uploaded to [facility] Silvia Rogers RN 12/09/2024 2:45 PM Addendum Seizure Call - spoke with nurse Katia. [facility] PH: [phone] FAX : [phone] Last Visit: 09/24/24 Next Visit: 01/15/25 Date and Time of seizure: 12/03, 10:05am Seizure description: altered awareness, stiffened up. Duration: 33 minutes. Reported the seizure ended at 10:38am Witnessed: by caregiver Aura: Last Seizure: 11/07/24 TB: Unsure but the patients tongue was sticking out of her mouth UI: At her baseline she is incontinent Rescue Medication used: yes, x2 doses of Nayzilam nasal spray. First dose given around 5 minutes after seizure was seen by the nurse. 2nd dose was given 10 minutes after while they were waiting for EMS to arrive. ASM: VPA 500mg TID LCM 100/100 Ethosuximide 250/250 PHT - no longer taking as per plan Triggers: Unsure. No missed ASM doses. Per Dagmar, she did have emesis and diarrhea last night. No other symptoms of illeness. Back to [place]: no Other: patient was taken to local ED, [facility]. The patient will be transferred to another hospital that has neurology team when a bed is available. ==== Per 11/10/24 phone encounter Script for Nayzilam sent. Would consider starting Vimpat with goal of weaning off PHT since she reaches goal dose. If they are in agreement can provide titration. Wk 1: LCM 50 mg at bedtime/ PHT 100 mg BID Wk 2: LCM 50 mg bid Wk 3: LCM 50/100, decrease PHT to 100 mg QHS Wk 4: LCM 100/100, stop PHT Titration plan was faxed to the patient's facility, verbal given to nurse as well. ==== Informed nursing to call our office with an update once the patient is discharged from the hospital. Forwarded to MARIO 2 pool MEGA Christianson Kelly, APRN.DWAYNE 12/03/2024 4:11 PM Signed If no clear triggers will likely need to adjust doses. Would consider further increasing LCM to 150 mg BID Artis Hamilton APRN.Silvia Willis RN 12/04/2024 1:10 PM Signed Called the patient's facility. Left message for the nurse to call back regarding recommendations. MEGA Christianson Christina M, RN 12/04/2024 1:26 PM Signed Spoke with nurse Inman at [facility]. Informed her of recommendations to increase LCM to 150mg BID, with read back. Nurse requests rx to be faxed to the facility. [facility] PH: [phone] FAX : [phone] MEGA Christianson Kelly, APRN.DWAYNE 12/04/2024 6:15 PM Signed The following approved medication requests have been transmitted electronically. Requested Prescriptions Signed Prescriptions Disp Refills lacosamide (VIMPAT) 150 mg tab 180 tablet 1 Sig: Take 1 tablet by mouth two times a day for 180 days. Authorizing Provider: ARTIS HAMILTON APRN.Silvia Willis RN 12/05/2024 8:58 AM Signed Updated LCM 150mg BID rx faxed via Right[employer]ax to [facility]. Confirmation received. MEGA Christianson Nancy 12/08/2024 1:33 PM Signed [facility]/ [facility] re LCM clarification and seizure activity; she can be reached at [phone] - ask for Katheryn's nurse Silvia Rogers RN 12/09/2024 2:47 PM Addendum Spoke with nurse Rosita. The patient returned from the hospital yesterday. She was seen by an epileptologist who changed her VPA to 500 mg BID and LCM to 100/150. Nurse wants to know if they should continue with these doses or if the patient should start LCM increase of 150mg BID recommended on 12/04. They are concerned that rescue Nayzilam spray was not effective after x2 doses and is also a high cost for the facility. They would like to know if there are other rescue options. The patient is to have LCM levels drawn next week 01/15/25 Forwarded to MARIO 2 for recommendations. MEGA Christianson Kelly, ANYI.DWAYNE 12/09/2024 3:04 PM Signed She can continue the current doses of VPA to 500 mg BID and LCM to 100/150. Other options are Valtoco nasal spray- but unlikely it would have different efficacy. But we can send in if they want to trial. Artis Hamilton APRN.Silvia Willis RN 12/09/2024 3:37 PM Signed Spoke with the patient's nurse, Rosita. Informed her okay to continue VPA 500mg BID, LCM 100/150 with read back. She will reach out if they decide to switch to Valtoco spray for rescue after determining the cost. Until then, would like a refill for Nayzilam 5 mg spray. MEGA Christianson Kelly, (more content not included)... Normal [facility] COMPLETE URINALYSISon 2024 BACTERIA (#/HPF) IN URINE Loaded Abnormal Negative [facility] [employer] [facility] Comment on above: Performed By: #### L [id number], [id number] #### Solar Design Engineer: JACKI MANCILLA ([id number]) [facility] ([facility]) [address] [place] [address] BILIRUBIN, TOTAL PRESENCE IN URINE Negative Normal Negative [facility] Comment on above: Performed By: #### L [id number], [id number] #### Solar Design Engineer: JACKI MANCILLA ([id number]) [facility] [address] [place] [address] Clarity (U) Extra Turbid Abnormal Clear [facility] Comment on above: Performed By: #### L AB239, [id number] #### Solar Design Engineer: JACKI MANCILLA ([phone]) [facility] ([facility] [address] [place] [address] Color (U) Yellow Normal Lt. Yellow [facility] Comment on above: Performed By: #### L [id number], [id number] #### Solar Design Engineer: JACKI MANCILLA ([id number]) [facility] ([facility]) [address] [place] [address] GLUCOSE (MG/DL) IN URINE Normal Normal Normal (<70) [facility] Comment on above: Performed By: #### L [id number], [id number] #### Solar Design Engineer: JACKI MANCILLA ([id number]) [facility] ([facility] [address] [place] [address] HEMOGLOBIN PRESENCE IN URINE 0.06 mg/dL Abnormal Negative [facility] Comment on above: Performed By: #### L [id number], [id number] #### Solar Design Engineer: JACKI MANCILLA ([id number]) [facility] ([facility] [address] [place] [address] HYALINE CASTS (#/LPF) IN URINE SEDIMENT BY MICROSCOPY Negative Normal Negative [facility] Comment on above: Performed By: #### L [id number], [id number] #### Solar Design Engineer: JACKI MANCILLA ([phone]) [facility] ([facility]) [address] [place] [address] Ketones Ql (U) Trace Abnormal Negative [facility] Comment on above: Performed By: #### L [id number], [id number] #### Solar Design Engineer: JACKI MANCILLA ([phone]) [facility] ([facility]) [address] [place] [address] LEUKOCYTE ESTERASE PRESENCE IN URINE BY TEST STRIP 500 James/uL Abnormal Negative [facility] Comment on above: Performed By: #### L [id number], [id number] #### Solar Design Engineer: JACKI MANCILLA ([id number]) [facility] ([facility]) [address] [place] [address] [place] MUCUS (#/LPF) IN URINE SEDIMENT Few Normal Negative [facility] Comment on above: Performed By: #### L AB239, [id number] #### Solar Design Engineer: JACKI MANCILLA ([phone]) [facility] ([facility]) [address] [place] [address] [place] NITRITE PRESENCE IN URINE Negative Normal Negative [facility] Comment on above: Performed By: #### L AB239, [id number] #### Solar Design Engineer: JACKI MANCILLA ([id number]) [facility] ([facility]) [address] [place] [address] NON-SQUAMOUS EPITHELIAL (#/HPF) IN URINE 3-5 Abnormal Negative [facility] Comment on above: Performed By: #### L AB239, [id number] #### Solar Design Engineer: JACKI MANCILLA ([id number]) [facility] ([facility] [address] [place] [address] pH (U) 6.0 [pH] Normal 5.0-8.0 [facility] Comment on above: Performed By: #### L AB239, [id number] #### Solar Design Engineer: JACKI MANCILLA ([id number]) [facility] ([facility]) [address] [place] [address] Protein (U) [Mass/Vol] 100 mg/dL Abnormal Negative [facility] Comment on above: Performed By: #### L AB239, [id number] #### Solar Design Engineer: JACKI MANCILLA ([id number]) [facility] ([facility]) [address] [place] [address] [place] RBC (#/HPF) IN URINE SEDIMENT 11-25 Abnormal 0-2 [facility] Comment on above: Performed By: #### L AB239, [id number] #### Solar Design Engineer: JACKI MANCILLA ([id number]) [facility] ([facility]) [address] Specific gravity (U) [Rel density] >1.030 High 1.005-1.030 [facility] Comment on above: Performed By: #### L AB239, [id number] #### Solar Design Engineer: JACKI MANCILLA ([id number]) [facility] ([facility]) [address] [place] [address] SQUAMOUS EPITHELIAL CELLS (#/HPF) IN URINE SEDIMENT 11-25 Abnormal 3-5 [facility] Comment on above: Performed By: #### L AB239, [id number] #### Solar Design Engineer: JACKI MANCILLA ([id number]) [facility] ([facility]) [address] [place] [address] UROBILINOGEN (MG/DL) IN URINE Normal Normal Normal (0-1) [facility] Comment on above: Performed By: #### Ailyn AB239, [id number] #### Solar Design Engineer: JACKI MANCILLA ([id number]) [facility] ([facility]) [address] [place] [address] WBC (LEUKOCYTE) (#/HPF) IN URINE SEDIMENT >100 Abnormal 0-5 [facility] Comment on above: Performed By: #### L AB239, [id number] #### Solar Design Engineer: JACKI MANCILLA ([id number]) [facility] ([facility]) [address] [place] [address] WBC (LEUKOCYTE) CLUMPS (#/HPF) IN URINE SEDIMENT Many Abnormal Negative [facility] Comment on above: Performed By: #### L AB239, [id number] #### Solar Design Engineer: JACKI MANCILLA ([id number]) [facility] ([facility] [address] [place] [address] COMPREHENSIVE METABOLIC PANE Scottie 12-03-2024 Albumin [Mass/Vol] 3.5 g/dL Normal 3.4-4.8 [facility] Comment on above: Performed By: #### L AB17 ####Solar Design Engineer: JACKI MANCILLA ([id number])[facility] ([facility])[address] [place] [address] ALP [Catalytic activity/Vol] 90 U/L Normal 40-150 [facility] Comment on above: Performed By: #### L AB17 ####Solar Design Engineer: JACKI MANCILLA ([id number])[facility] [place] [address] ALT [Catalytic activity/Vol] 14 U/L Normal <30 [facility] Comment on above: Performed By: #### L AB17 ####Solar Design Engineer: JACKI MANCILLA ([id number])[facility] ([facility])[address] [place] [address] Anion gap [Moles/Vol] 10 mmol/L Normal 3-13 [facility] Comment on above: Performed By: #### L AB17 ####Solar Design Engineer: JACKI MANCILLA ([phone])[facility] [place] [address] AST [Catalytic activity/Vol] 31 U/L Normal <34 [facility] Comment on above: Performed By: #### L AB17 ####Solar Design Engineer: JACKI MANCILLA ([id number])[facility] [place] [address] Bilirubin [Mass/Vol] 0.5 mg/dL Normal <1.2 [facility] Comment on above: Performed By: #### L AB17 ####Solar Design Engineer: JACKI MANCILLA ([id number])[facility] [place] [address] Calcium [Mass/Vol] 8.5 mg/dL Low 8.8-10.0 [facility] Comment on above: Performed By: #### L AB17 ####Solar Design Engineer: JACKI MANCILLA ([id number])[facility] ([facility])[address] [place] [address] [place] Chloride [Moles/Vol] 109 mmol/L High 98-107 [facility] Comment on above: Performed By: #### L AB17 ####Solar Design Engineer: JACKI MANCILLA ([id number])[facility] ([facility])[address] [place] [address] [place] CO2 [Moles/Vol] 22 mmol/L Low 23-31 [facility] Comment on above: Performed By: #### L AB17 ####Solar Design Engineer: JACKI MANCILLA ([phone])[facility] [place] [address] Creatinine [Mass/Vol] 0.82 mg/dL Normal 0.57-1.11 [facility] Comment on above: Performed By: #### L AB17 ####Solar Design Engineer: JACKI MANCILLA ([phone])[facility] ([facility])[address] [place] [address] [place] GLOMERULAR FILTRATION RATE ML/MIN/1.73 SQ M.PREDICTED 73.8 mL/min/1.73m*2 Normal >60.0 [facility] Comment on above: Result Comment: Calc ulation based on the Chronic Kidney Disease Epidemiology Collaboration (CKD-EPI) equation refit without adjustment for race Performed By: #### L AB17 ####Solar Design Engineer: JACKI MANCILLA ([id number])[facility] ([facility])[address] [place] [address] [place] Glucose [Mass/Vol] 112 mg/dL Normal 82-115 [facility] Comment on above: Performed By: #### L AB17 ####Solar Design Engineer: JACKI MANCILLA ([phone])[facility])[address] [place] [address] [place] Potassium [Moles/Vol] 4.1 mmol/L Normal 3.5-5.1 [facility] Comment on above: Result Comment: [facility] potassium values may be up to 0.5 mmol/L lower than serum values. Performed By: #### L AB17 ####Solar Design Engineer: JACKI MANCILLA ([id number])[facility] ([facility])[address] [place] [address] [place] Protein [Mass/Vol] 7.1 g/dL Normal 6.4-8.3 [facility] Comment on above: Performed By: #### L AB17 ####Solar Design Engineer: JACKI MANCILLA ([id number])[facility] ([facility])[address] [place] [address] Sodium [Moles/Vol] 141 mmol/L Normal 136-145 [facility] Comment on above: Performed By: #### L AB17 ####Solar Design Engineer: JACKI BRENDAKathrine ([id number])[facility] ([facility])[address] [place] [address] Urea nitrogen [Mass/Vol] 23 mg/dL Normal 9-23 [facility] Comment on above: Performed By: #### L AB17 ####Solar Design Engineer: JACKI GUTIERREZKathrine ([id number])[facility] ([facility])[address] [place] [address] CT ABDOMEN PELVIS W CONTRAST on 12-03-2024 CT ABDOMEN PELVIS W CONTRAST Patient Name: KATHERYN CHINO : 1945 Exam Date/Time: 12/03/2024 20:52 Procedure: CT ABDOMEN PELVIS W CONTRAST Ordering Provider: DIAMOND BLAKE Reason For Exam: Abdominal pain, acute, nonlocalized CT ABDOMEN AND PELVIS CLINICAL INDICATION: Abdominal pain, acute, nonlocalized TECHNIQUE: CT scan of the abdomen and pelvis with IV contrast. Multiplanar reformations. Dose reduction was employed with automated exposure control. COMPARISON: None FINDINGS: Uppermost aspect of the hepatic dome not included on the study. Otherwise, no focal hepatic lesion seen. Multiple gallstones. No biliary tree dilatation. Spleen shows no significant abnormality. Lung bases are clear. No free intraperitoneal gas seen. Adrenal glands show no significant abnormality. Kidneys show no significant abnormality. Pancreas shows no significant abnormality. Abdominal aorta is nonaneurysmal. No bowel obstruction. No ureteral calculus seen on either side. Bladder appears mildly inflamed, correlate for possible cystitis. Normal appendix. IMPRESSION: 1. Possible cystitis, correlate with urinalysis. 2. Gallstones. Report Dictated on Electronically Signed By: Wilber Christianson MD Electronically Signed Date/Time: 12/03/2024 9:33 PM EST Abdominal pain, acute, nonlocalized, Nausea/vomiting Normal [facility] CT Abdomen and Pelvis W cont rast Srikanth 12-03-2024 1. Possible cystitis, correlate with urinalysis. 2. Gallstones. Report Dictated on Electronically Signed By: Wilber Christianson MD Electronically Signed Date/Time: 12/03/2024 9:33 PM EST [facility] [employer] Patient Name: KATHERYN YIP : 1945 Exam Date/Time: 12/03/2024 20:52 Procedure: CT ABDOMEN PELVIS W CONTRAST Ordering Provider: DIAMOND BLAKE Reason For Exam: Abdominal pain, acute, nonlocalized CT ABDOMEN AND PELVIS CLINICAL INDICATION: Abdominal pain, acute, nonlocalized TECHNIQUE: CT scan of the abdomen and pelvis with IV contrast. Multiplanar reformations. Dose reduction was employed with automated exposure control. COMPARISON: None FINDINGS: Uppermost aspect of the hepatic dome not included on the study. Otherwise, no focal hepatic lesion seen. Multiple gallstones. No biliary tree dilatation. Spleen shows no significant abnormality. Lung bases are clear. No free intraperitoneal gas seen. Adrenal glands show no significant abnormality. Kidneys show no significant abnormality. Pancreas shows no significant abnormality. Abdominal aorta is nonaneurysmal. No bowel obstruction. No ureteral calculus seen on either side. Bladder appears mildly inflamed, correlate for possible cystitis. Normal appendix. [facility] Wilber Christianson MD - 12/03/2024 Patient Name: KATHERYN CHINO : 1945 Exam Date/Time: 12/03/2024 20:52 Procedure: CT ABDOMEN PELVIS W CONTRAST Ordering Provider: DIAMOND BLAKE Reason For Exam: Abdominal pain, acute, nonlocalized CT ABDOMEN AND PELVIS CLINICAL INDICATION: Abdominal pain, acute, nonlocalized TECHNIQUE: CT scan of the abdomen and pelvis with IV contrast. Multiplanar reformations. Dose reduction was employed with automated exposure control. COMPARISON: None FINDINGS: Uppermost aspect of the hepatic dome not included on the study. Otherwise, no focal hepatic lesion seen. Multiple gallstones. No biliary tree dilatation. Spleen shows no significant abnormality. Lung bases are clear. No free intraperitoneal gas seen. Adrenal glands show no significant abnormality. Kidneys show no significant abnormality. Pancreas shows no significant abnormality. Abdominal aorta is nonaneurysmal. No bowel obstruction. No ureteral calculus seen on either side. Bladder appears mildly inflamed, correlate for possible cystitis. Normal appendix. IMPRESSION: 1. Possible cystitis, correlate with urinalysis. 2. Gallstones. Report Dictated on Electronically Signed By: Wilber Christianson MD Electronically Signed Date/Time: 12/03/2024 9:33 PM EST [facility] [employer] Radiology Study observation (narrative) [facility] [employer] CT Abdomen and Pelvis W cont rast IVOrdered By: Wilber Christianson on 12-03-2024 [employer] Work Phone: Carbon dioxide measurementOr dered By: Damir Mckee on 12-03-2024 CO2 [Moles/Vol] 21.0 mmol/L 21.0-32.0 [facility] Chest 1 View (Portable)on Chest 1 View (Portable) [facility] Services [address] [place] [id number] Chest 1 View (Portable) MR#: [id number] Acct: [id number] Name: KATHERYN CHINO Rep #: [id number] : 1945 F 79 From: Darwin grigsby MD PCP: Dr. Todd Velasquez Sr., DO Status: REG ER Study: Chest 1 View (Portable) Date of Exam: 12/03/24 Exam# [id number] Ordering Dr: Damir Mckee MD PROCEDURE: CHEST 1 VIEW (PORTABLE) REASON FOR EXAM: 38 minutes seizure. TECHNIQUE: Frontal view of the chest. COMPARISON: Comparison is made with prior study dated August 17, 2024. FINDINGS: EKG electrodes are seen. Stable elevation of the right hemidiaphragm. The heart size is normal. Mild degree of vascular congestion. RAD/Chest 1 View (Portable) IMPRESSION: Mild degree of vascular congestion. Elevation of the right hemidiaphragm. Reading Location: [facility]IR[facility] CC: Dr. Todd Velasquez Sr., DO; Dr. Damir Mckee MD Order Dispatcher Chief: Signed Normal [facility] Chloride measurementOrdered By: Damir Mckee on 12-03-2024 Chloride [Moles/Vol] 114 mmol/L High 98-107 [facility] Comprehensive metabolic 1998 panelon 12-03-2024 Albumin [Mass/Vol] 3.5 g/dL 3.4 - 4.8 g/dL [facility] ALP [Catalytic activity/Vol] 90 U/L 40 - 150 U/L [facility] ALT [Catalytic activity/Vol] 14 U/L NINF - 30 U/L [facility] Anion gap [Moles/Vol] 10 mmol/L 3 - 13 mmol/L [facility] AST [Catalytic activity/Vol] 31 U/L NINF - 34 U/L [facility] Bilirubin [Mass/Vol] 0.5 mg/dL NINF - 1.2 mg/dL [facility] Calcium [Mass/Vol] 8.5 mg/dL Low 8.8 - 10. 0 mg/dL [facility] Chloride [Moles/Vol] 109 mmol/L High 98 - 10 7 mmol/L [facility] CO2 [Moles/Vol] 22 mmol/L Low 23 - 31 mmol/L [facility] Creatinine [Mass/Vol] 0.82 mg/dL 0.57 - 1.11 mg/dL [facility] GFR/1.73 sq M.predicted (S/P/Bld) [Vol rate/Area] 73.8 mL/min - PINF [facility] Comment on above: Calculation based on the Chronic Kidney Disease Epidemiology Collaboration (CKD-EPI) equation refit without adjustment for race Glucose [Mass/Vol] 112 mg/dL 82 - 115 mg/dL [facility] Interpretation and review of laboratory results Abnormal [facility] Potassium [Moles/Vol] 4.1 mmol/L 3.5 - 5.1 mmol/L [facility] Comment on above: Plasma potassium radha ues may be up to 0.5 mmol/L lower than serum values. Protein [Mass/Vol] 7.1 g/dL 6.4 - 8.3 g/dL [facility] Sodium [Moles/Vol] 141 mmol/L 136 - 145 mmol/L [facility] Urea nitrogen [Mass/Vol] 23 mg/dL 9 - 23 mg/dL [facility] ECG 12-LEADon 12-03-2024 ECG 12-LEAD IMPRESSION: Sinus rhythm Borderline T abnormalities, anterior leads Electronically Signed On 12-03-2024 22:55:54 EST by Roxanna PerezManjeet [facility] ED Provider Noteon ED Provider Note Emergency Department Encounter [facility] EMERGENCY DEPT Patient: Katheryn Chino : 1945 Date of Evaluation: 12/03/2024 ED Supervising Physician: Miriam Hennessy DO I personally evaluated Katheryn Chino and made/approved the management plan and take responsibility for the patient management. This will serve as my Supervisory note and shared attestation. I did perform a substantive portion of the visit including all aspects of the Medical Decision Making. I wore appropriate PPE for the entirety of this encounter. In brief, Katheryn Chino female with past medical history significant for seizure disorder, hypertension, hypothyroidism is a 79 y.o. that presents to the emergency department as a transfer from [facility] for breakthrough seizure. Patient reports she has a history of seizures. Reports recently her neurologist decreased her antiepileptic medication. Reports that today she had a seizure. On arrival, patient is complaining of abdominal pain, nausea. Reports she recently had a cough, abdominal pain, and she has been feeling unwell. Focused exam: General: Appears well, nontoxic, no distress HEENT: Pupils equal and round, EOMI Cardiovascular: RRR, no murmurs respiratory: CTAB, no wheeze, no conversational dyspnea gastrointestinal: Soft, nondistended, tender in the epigastric region, no rebound or involuntary guarding Neurological: Alert, moving all extremities spontaneously Brief ED course/MDM: Patient is a 79-year-old female with past medical history significant for seizure presenting to the ED for evaluation of breakthrough seizure Concern for breakthrough seizure in the setting of infectious process as the patient was febrile on arrival. Reports she has basically been feeling unwell, having nausea and abdominal pain. Obtained CT abdomen pelvis, urinalysis, additional labs. Viral panel negative. UA consistent with UTI. Mild leukocytosis at 10.9. CT abdomen pelvis with possible cystitis and gallstones. Patient does not have any tenderness specifically in the right upper quadrant, no transaminitis or elevation in bilirubin or alk phos on CMP, low suspicion for acute cholecystitis. Chest x-ray clear. Will admit the patient for urosepsis, breakthrough seizure. Patient given Rocephin for UTI. Diagnostics interpreted by me: I personally discussed the patient's management with other clinicians: All diagnostic, treatment, and disposition decisions were made by myself in conjunction with the MARIO. For all further details of the patient's emergency department visit, please see their documentation. (Comment: Please note this report has been produced using speech recognition software and may contain errors related to that system including errors in grammar, punctuation, and spelling, as well as words and phrases that may be inappropriate. If there are any questions or concerns please feel free to contact the dictating provider for clarification.) Miriam Hennessy, DO [employer] Miriam Hennessy DO 12/04/24 0003 [facility] ED Provider Note EMERGENCY DEPARTMENT ENCOUNTER Pt Name: Katheryn Chino Birthdate 1945 Date of evaluation: 12/03/2024 ED Provider: Rancho Diamond PA-C CHIEF COMPLAINT Chief Complaint Patient presents with Seizures [facility] transfer. Pt from [facility]F for 38 minute witnessed seizure this morning. Vomiting during seizure, pt on 4L NC, room air @ baseline. Hx SZ, pt states her last one was 5 months ago. Given depakote 500 mg @ 1228, 4 mg zofran @ 1228, and dilantin 1500 mg @ 1350. A&O x 2 with garbled speech at baseline. HISTORY OF PRESENT ILLNESS (Location/Symptom, Timing/Onset, Context/Setting, Quality, Duration, Modifying Factors, Severity) Note limiting factors. I wore appropriate PPE for the entirety of this encounter. HPI Katheryn Chino is a 79 y.o. female with a history of seizure disorder, developmental delay, hypertension who presents to the emergency department for concerns for breakthrough seizure at nursing facility that lasted 38 minutes. History is fairly limited due due to patient's developmental delay. Apparently she had a seizure that was prolonged for 38 minutes at her nursing facility today. She did vomit with the seizure. They did take her to [facility] where she was supposedly observed there and is unsure if they got any workup and was transferred here which is unclear why. Did speak with patient's brother over the phone who states her medications were recently be changed over the last week or so regarding her seizure medications and she has been well-controlled for the last several years. Patient denies any chest pain or shortness of breath. Does have some abdominal pain. Denies any headache, neck pain, vision changes or speech changes. Nursing Notes were reviewed. Limitations to history: Developmental delay Outside historians: EMS REVIEW OF SYSTEMS Review of Systems Please see HPI for pertinent positives and negatives. All other systems reviewed and negative PAST MEDICAL HISTORY Past Medical History: Diagnosis Date Allergic rhinitis Dependent edema 01/27/2020 Essential hypertension 01/27/2020 Hypothyroidism 01/27/2020 Mental deficiency 01/27/2020 Peptic ulcer disease 01/27/2020 Seizure disorder (CMS/HCC) 01/27/2020 SURGICAL HISTORY No past surgical history on file. CURRENT MEDICATIONS Previous Medications No medications on file ALLERGIES Patient has no known allergies. FAMILY HISTORY No family history on file. SOCIAL HISTORY Social History Socioeconomic History Marital status: Single Tobacco Use Smoking status: Never Smokeless tobacco: Never Substance and Sexual Activity Alcohol use: No Drug use: No Social Drivers of Health Food Insecurity: No Food Insecurity (08/18/2024) Received from [facility] Hunger Vital Sign Worried About Running Out of Food in the Last Year: Never true Ran Out of Food in the Last Year: Never true Transportation Needs: No Transportation Needs (08/18/2024) Received from [facility] PRAPARE - Transportation Lack of Transportation (Medical): No Lack of Transportation (Non-Medical): No Housing Stability: Low Risk (08/18/2024) Received from [facility] Housing Stability Vital Sign Unable to Pay for Housing in the Last Year: No Number of Times Moved in the Last Year: 0 Homeless in the Last Year: No SCREENINGS [place] Coma Scale Best Eye Response: Spontaneous Best Verbal Response: Confused Best Motor Response: Follows commands [place] Coma Scale Score: 14 PHYSICAL EXAM ED Triage Vitals [12/03/24 1839] Temp Heart Rate Resp BP (!) 38.8 ?C (101.8 ?F) 98 18 121/60 SpO2 Temp Source Heart Rate Source Patient Position 97 % Oral -- -- BP Location FiO2 (%) -- -- Physical Exam GENERAL APPEARANCE: NAD, no cyanosis, pallor, or diaphoresis. EYES: lids/conjunctiva normal. Pupils equal round react to light. Extraocular movement intact. EARS/NOSE/THROAT: Mucous membranes dry, nares normal, lips/teeth normal uvula midline without oral pharyngeal erythema, exudate or swelling TMs normal bilaterally. No lymphangitis/lymphedema. HEAD/NECK: normocephalic atraumatic, no facial trauma, neck is supple. No midline cervical tenderness. RESPIRATORY: Patient is on her baseline 4 L breathing comfortably room air. Respiratory effort normal, speaks in full sentences, no tripod position, no accessory muscle use. Lungs clear to auscultation without rhonchi, wheezes, rales CARDIAC: Regular rate and rhythm, no murmurs gallops or rubs. ABDOMINAL: Abdomen soft and nondistended. Patient did have some slight abdominal tenderness on exam. No evidence of fluid wave. No pulsatile masses on exam, rebound tenderness, Coyle sign or pain over Mcburney's point. MUSCLES/EXTREMITIES: No abnormal range of motion, no swelling. SKIN: Warm, pink and dry. No rashes, dermatoses, petechiae or lesions. NEUROLOGICAL: Awake alert and oriented (more content not included)... Normal [facility] Emergency Department Summary on 12-03-2024 Emergency Department Summary [facility] Medical Records Department [address] [place] [address] Emergency Department Summary 12/03/24 MR#: [id number] Acct: [id number] Name: KATHERYN CHINO Rep #: [id number] : 1945 79 From: Damir Mckee MD PCP: Dr. Todd Velasquez Sr., DO Status:REG ER Location: ED HPI History of Present Illness Chief Complaint: Seizure Detail of Chief Complaint: 38-minute generalized tonic-clonic seizure Informant: EMS and SNF Limited: other (Postictal) Onset/Context/Timing Onset: Today Context: Sudden Onset Timing: Intermittent and Lasts (38 minutes) Quality: Generalized tonic-clonic Current Severity: Presently postictal Maximum Severity: Severe Worsened by: Unknown Relieved by: Received 2 doses of midazolam by EMS Associated Symptoms Associated Symptoms: Unable to determine Narrative Narrative: 9-year-old woman. She has history of hypothyroidism, GERD, seizure disorder, pulmonary disease who arrived by ambulance due to generalized tonic-clonic seizure. Because she had a seizure for 38 minutes she was transported to hospital for evaluation unknown when patient had last seizure. Review prior records to determine if she has been here before for seizures. Prior similar symptoms: Yes Recent Illness[facility]: [facility] Medical History Dysphagia, oropharyngeal phase Generalized anxiety disorder Plantar fascial fibromatosis Primary osteoarthritis, right hand Primary osteoarthritis, right wrist Hypokalemia Other specified peripheral vascular diseases Cervicalgia Personal history of COVID-19 Degenerative disease of nervous system, unspecified Heart failure, unspecified Hypertensive heart disease with heart failure Changes in retinal vascular appearance, bilateral Dry eye syndrome of bilateral lacrimal glands Major depressive disorder, recurrent, unspecified Cognitive communication deficit Dysthymic disorder Other secondary cataract, left eye Insomnia, unspecified Age-related physical debility Weakness Other lack of coordination Unspecified abnormalities of gait and mobility Other optic atrophy, right eye Presbyopia Age-related osteoporosis without current pathological fracture Allergic rhinitis, unspecified Functional urinary incontinence Primary generalized (osteo)arthritis Unspecified intellectual disabilities Dysarthria and anarthria Other specified mental disorders due to known physiological condition Diaphragmatic hernia without obstruction or gangrene Gastro-esophageal reflux disease without esophagitis Hypothyroidism, unspecified Peptic ulcer, site unspecified, unspecified as acute or chronic, without hemorrhage or perforation Unspecified dementia, unspecified severity, with anxiety Epilepsy, unspecified, not intractable, without status epilepticus Home Medications ???Medication ???Instructions ???Recorded ???Last Taken ???Type acetaminophen 325 mg tablet 650 mg PO DAILY PAIN 09/18/23 Unkn own History albuterol sulfate 90 mcg/actuation 2 inh inhalation Q4H PRN shortne ss 09/18/23 Unknown History aerosol inhaler of breath or wheezing cholecalciferol (vitamin D3) 50 50 mcg PO DAILY 09/18/23 Unknown H istory mcg (2,000 unit) tablet docusate sodium 100 mg capsule 100 mg PO DAILY PRN constipation 1 11/19/22 Unknown History escitalopram oxalate 20 mg tablet 20 mg PO DAILY 09/18/23 Unknown H istory ethosuximide 250 mg capsule 250 mg PO Q12H 09/18/23 Unknown Hi story furosemide 20 mg tablet 20 mg PO MOWEFR 09/18/23 Unknown H istory levothyroxine 50 mcg tablet 50 mcg PO DAILY 09/18/23 Unknown H istory losartan 25 mg tablet 25 mg PO DAILY 09/18/23 Unknown Hi story melatonin 3 mg tablet 3 mg PO DAILY 09/18/23 Unknown His tory pantoprazole 40 mg tablet,delayed 40 mg PO DAILY 09/18/23 Unknown H istory release phenytoin sodium extended 100 mg 100 mg PO Q12H 09/18/23 Unknown Hi story capsule potassium chloride 10 mEq 10 meq PO DAILY 09/18/23 Unknown H istory tablet,extended release valproic acid 250 mg capsule 500 mg PO Q8H 09/18/23 Unknown His tory ipratropium 0.5 mg-albuterol 3 mg 3 ml inhalation Q6H PRN shortness 08/17/24 Unknown History (2.5 mg base)/3 mL nebulization of breath or wheezing soln lacosamide 100 mg tablet 100 mg PO QHS 12/03/24 Unknown His tory lacosamide 50 mg tablet 50 mg PO Q12H 12/03/24 Unknown His tory midazolam 5 mg/spray (0.1 mL) 1 spray intranasal PRN seizure Unknown History nasal spray (Nayzilam) Allergy/AdvReac Type Severity Reaction Status Date / Time No Known Allergies Allergy Verified 12/03/24 09:38 Social History Smoking Status: Never smoker ROS ROS ED Review of Systems ROS Unobtainable: du (more content not included)... Normal [facility] Eosinophil percentageOrdered By: Damir Mckee on 12-03-2024 Eosinophils/100 WBC (Bld) 0.0 % 0-5 [facility] Erythrocyte distribution wid th (RBC) [Ratio]Ordered By: Damir Mckee on 12-03-2024 Erythrocyte distribution width (RBC) [Entitic vol] 43.0 fL 35.1-43.9 [facility] Erythrocyte distribution wid th ratioOrdered By: Damir Mckee on 12-03-2024 Erythrocyte distribution width (RBC) [Ratio] 13.2 % 11.6-14.6 [facility] Erythrocyte distribution wid th standard deviationOrdered By: Damir Mckee on 12-03-2024 Erythrocyte distribution width (RBC) [Ratio] 43.0 fl 35.1-43.9 [facility] Estimated glomerular filtrat ion rate (GFR) AmericanOrdered By: Damir Mckee on 12-03-2024 Estimated GFR (MDRD) Amer 116 mL/min >60 [facility] Comment on above: GFR Calc Estimation of creatinine ryan aranceOrdered By: Damir Mckee on 12-03-2024 Estimated Creatinine Clearance Calc 63.94 ml/min [facility] Glomerular filtration rate ( GFR) estimationOrdered By: Damirsharlene Mckee on 12-03-2024 Estimated GFR (MDRD) Non-Af Amer 96 mL/min >60 [facility] Comment on above: Non- GFR Calc GFR/1.73 sq M.predicted among non-blacks MDRD (S/P/Bld) [Vol rate/Area] 96 mL/min/{1.73_m2} >60 [facility] Comment on above: Non- GFR Calc Glucose measurementOrdered B y: Damirsharlene Ledesmao on 12-03-2024 Glucose [Mass/Vol] 141 mg/dL High 74-106 [facility] Comment on above: Fasting Glucose resu lt greater than or equal to 126 mg/dL suggests DIABETES MELLITUS per A.D.A. criteria. Hematocrit Auto (Bld) [Volum e fraction]Ordered By: Damir Mckee on 12-03-2024 Hematocrit (Bld) [Volume fraction] 36.5 % Low 37-47 [facility] Hemoglobin measurementOrdere d By: Damir Mckee on 12-03-2024 Hemoglobin (Bld) [Mass/Vol] 11.9 g/dL Low 12.0-15.0 [facility] Immature granulocytes/100 WB C Auto (Bld)Ordered By: Damirsharlene Mckee on 12-03-2024 Immature granulocytes/100 WBC (Bld) 0.400 % 0.0-0.9 [facility] Comment on above: IG% - Immature Granu locytes (promyelocytes, myelocytes and metamyelocytes) > 1% indicates that a LEFT SHIFT is Present. LACTIC ACID WITH REFLEXon Lactate [Moles/Vol] 1.6 mmol/L Normal 0.5-2.2 [facility] Comment on above: Performed By: #### L [id number] ####Solar Design Engineer: JACKI MANCILLA ([id number])[facility] Laboratory - Chemistry and C hemistry - challengeon 12-03-2024 Lactate [Moles/Vol] 1.6 mmol/L 0.5 - 2. 2 mmol/L [facility] Laboratory - Drug toxicology on 12-03-2024 Phenytoin [Mass/Vol] 14.1 ug/mL 10.0 - 20.0 ug/mL [facility] Laboratory - Microbiology an d Antimicrobial susceptibilityon 12-03-2024 FLUAV RNA RUTH+probe Ql (Resp) Not detected Not Detected [facility] FLUBV RNA RUTH+probe Ql (Resp) Not detected Not Detected [facility] RSV RNA RUTH+probe Ql (Resp) Not detected Not Detected [facility] SARS-CoV-2 (COVID-19) RNA RUTH+probe Ql (Resp) Not detected Not Detected [facility] Lactic Acidon 12-03-2024 Lactate [Moles/Vol] 2.8 mmol/L Invalid Interpretation Code 0.4-1.9 [facility] Comment on above: Result Comment: Crit ical Result(s) Called at: 17:21:47 12/03/2024 by: ISSAC LANE. Results read back by same. Performed By: #### L [id number] #### [facility] [address] [place], [place], [address] Lactate [Moles/Vol] 4.7 mmol/L Invalid Interpretation Code 0.4-1.9 [facility] Comment on above: Order Comment: [id number] Result Comment: Crit ical Result(s) Called at: 13:02:25 12/03/2024 by: Fauzia Hackett. Results read back by same. Performed By: #### L 100.0100, L501.8100, L501.7700, L500.4050 #### [facility] [address] [place], [place], [id number] Lactic acid measurementOrder ed By: Damir Mckee on 12-03-2024 Lactate [Moles/Vol] 2.8 mmol/L High 0.4-2.0 [facility] Comment on above: Critical Result(s) C alled at: 17:21:47 12/03/2024 by: ISSAC KEARNEY TO [address]. Results read back by same. Lymphocytes Auto (Unsp spec) [#/Vol]Ordered By: Damirsharlene Mckee on 12-03-2024 Lymphocytes (Bld) [#/Vol] 0.66 10*3/uL Low 0.83-4.51 [facility] Lymphocytes/100 WBC Auto (Un sp spec)Ordered By: Damirsharlene Mckee on 12-03-2024 Lymphocytes/100 WBC (Bld) 4.8 % Low 19-41 [facility] MCV (mean corpuscular volume ) determinationOrdered By: Damirsharlene Mckee on 12-03-2024 MCV (RBC) [Entitic vol] 89.2 fL 81-99 [facility] Mean corpuscular hemoglobin (MCH) determinationOrdered By: [facility] 12-[facility]-2024 MCH (RBC) [Entitic mass] 29.1 pg 27.0-32.0 [facility] Mean corpuscular hemoglobin concentration (MCHC) determinationOrdered By: Damirsharlene Mckee on 12-03-2024 MCHC (RBC) [Mass/Vol] 32.6 g/dL 32-36 [facility] Mean platelet volume determi nationOrdered By: Damirsharlene Mckee on 12-03-2024 Platelet mean volume (Bld) [Entitic vol] 11.9 fL 6.2-12.0 [facility] Monocyte percentageOrdered B y: Damir Mckee on 12-03-2024 Monocytes/100 WBC (Bld) 4.8 % 0-10 [facility] Neutrophil percentageOrdered By: Damirsharlene Mckee on 12-03-2024 Neutrophils/100 WBC (Bld) 89.7 % High 47-70 [facility] No Panel InformationOrdered By: Roxanna Perez on 12-03-2024 P [place] -3 degrees [facility] [employer] Work Phone: SD Interval 151 ms [employer] Work Phone: QRS [place] 38 degrees [employer] Work Phone: QRSD Interval 81 ms [employer] Work Phone: [phone] QT Interval 370 ms [employer] Work Phone: QTC Interval 453 ms [employer] Work Phone: T Wave [place] 5 degrees [employer] Work Phone: [employer] Work Phone: No Panel Informationon 12-03 Sinus rhythm Borderline T abnormalities, anterior leads Electronically Signed On 12-03-2024 22:55:54 EST by Roxanna [facility] HospitalWhit[facility] PERALES [facility] Burroughs, - 12/03/2024 IMPRESSION: Sinus rhythm Borderline T abnormalities, anterior leads Electronically Signed On 12-03-2024 22:55:54 EST by Roxanna PerezNovant Health Row[facility] Centerkary [facility] Interpretation and review of laboratory results Normal [facility] Toxicity seen at concentrations >20.0 ug/mL [facility] Interpretation and review of laboratory results Normal [facility] Nucleated red blood cell per centageOrdered By: Damir Mckee on 12-03-2024 Nucleated RBC/100 WBC (Bld) [Ratio] 0 % 0-5 [facility] PHENYTOIN TOTALon 12-03-2024 PHENYTOIN, TOTAL 14.1 ug/mL Normal 10.0-20.0 [facility] Comment on above: Result Comment: RD Chu COMMENTS: Toxicity seen at concentrations >20.0 ug/mL Performed By: #### L [id number] ####Solar Design Engineer: JACKI MANCILLA ([id number])[facility] ([address] Phenytoin (Dilantin) Levelon 12-03-2024 PHENYTOIN 2.6 mL Low 10.0-20.0 [facility] Comment on above: Performed By: #### L 100.0100, L501.8100, L501.7700, L500.4050 #### [facility] [address] [place], [address] Phenytoin [Mass/Vol]Ordered By: Damir Ledesmao on 12-03-2024 Phenytoin (Dilantin) Level 2.6 mL Low 10.0-20.0 [facility] Platelet countOrdered By: sharlene Mckee on 12-03-2024 Platelets (Bld) [#/Vol] 199 10*3/uL 150-450 [facility] Potassium measurementOrdered By: Damirsharlene Ledesmao on 12-03-2024 Potassium [Moles/Vol] 3.3 mmol/L Low 3.5-5.1 [facility] RBC Auto (Bld) [#/Vol]Ordere d By: Damirsharlene Ledesmao on 12-03-2024 RBC (Bld) [#/Vol] 4.09 10*6/uL Low 4.2-5.4 [facility] RESPIRATORY PATHOGENS PANEL BY PCRon 12-03-2024 RESPIRATORY PATHOGENS PANEL BY PCR SARS-COV-2 Reference Not Detected Not Detected ADENOVIRUS Reference Not Detected Not Detected CORONAVIRUS HKU1 Reference Not Detected Not Detected CORONAVIRUS NL63 Reference Not Detected Not Detected CORONAVIRUS 229E Reference Not Detected Not Detected CORONAVIRUS OC43 Reference Not Detected Not Detected HUMAN METAPNEUMOVIRUS Reference Not Detected Not Detected HUMAN RHINOVIRUS/ENTEROVIRUS Reference Not Detected Not Detected INFLUENZA A Reference Not Detected Not Detected INFLUENZA B Reference Not Detected Not Detected PARAINFLUENZA 1 Reference Not Detected Not Detected PARAINFLUENZA 2 Reference Not Detected Not Detected PARAINFLUENZA 3 Reference Not Detected Not Detected PARAINFLUENZA 4 Reference Not Detected Not Detected RESPIRATORY SYNCYTIAL VIRUS Reference Not Detected Not Detected BORDETELLA PERTUSSIS Reference Not Detected Not Detected BORDETELLA PARAPERTUSSIS Reference Not Detected Not Detected CHLAMYDIA PNEUMONIAE Reference Not Detected Not Detected MYCOPLASMA PNEUMONIAE Reference Not Detected Not Detected ORDER COMMENTS: Methodology: Multiplex PCR Normal [facility] Comment on above: Performed By: #### L [id number], [id number] ####Solar Design Engineer: JACKI MANCILLA ([id number])[facility] ([facility] SARS-COV-2, FLU A/B, AND RSV COMBOon 12-03-2024 SARS-CoV-2 (COVID-19) RNA RUTH+probe Ql (Unsp spec) SARS-COV-2 Reference Not Detected Not Detected RESPIRATORY SYNCYTIAL VIRUS Reference Not Detected Not Detected INFLUENZA A (CEPHEID) Reference Not Detected Not Detected INFLUENZA B (CEPHEID) Reference Not Detected Not Detected ORDER COMMENTS: Methodology: real-time, RT-PCR Normal [facility] Comment on above: Performed By: #### L [id number] #### Solar Design Engineer: JACKI MANCILLA ([id number]) [facility] ([facility]) [address] [place] [address] SARS-CoV-2, Flu A/B, and RSV Comboon 12-03-2024 Interpretation and review of laboratory results Normal [facility] Methodology: real-ti me, RT-PCR [facility] Serum anion gap measurementO rdered By: Damir Mckee on 12-03-2024 Anion gap [Moles/Vol] 8 mmol/L 5-15 [facility] Serum or plasma calcium jacob urement (mass/volume)Ordered By: [facility] on 12-03-2024 Calcium [Mass/Vol] 7.4 mg/dL Low 8.5-10.1 [facility] Serum or plasma creatinine m easurement (mass/volume)Ordered By: [facility] on 12-03-2024 Creatinine [Mass/Vol] 0.64 mg/dL 0.55-1.02 [facility] Comment on above: The validity of the calculated GFR & GFRAA in patients over 70 years has not been determined. Clinical correlation is essential. Serum or plasma phenytoin le kate (mass/volume)Ordered By: [facility] on 12-03-2024 Phenytoin [Mass/Vol] 2.6 mL Low 10.0-20.0 [facility] Serum or plasma urea nitroge n measurement (mass/volume)Ordered By: [facility] on 12-03-2024 Urea nitrogen [Mass/Vol] 19 mg/dL High 7-18 [facility] Sodium levelOrdered By: [facility] on 12-03-2024 Sodium [Moles/Vol] 143 mmol/L 136-145 [facility] URINE CULTUREon 12-03-2024 Bacteria identified Cx Nom (U) URINE CULTURE Reference Normal urogenital devyn present ESCHERICHIA COLI >100,000 CFU/mL Escherichia coli (A) AEROCOCCUS URINAE >100,000 CFU/mL Aerococcus urinae (A) Susceptibility testing not routinely performed except on isolates from blood culture. Aerococcus species are generally susceptible to beta-lactams. Resistance to sulfonamides is common in Aerococcus urinae. Providers should call the [facility] Microbiology Laboratory ([phone]) within 3 days if susceptibility testing is required. Organism: ESCHERICHIA COLI Antibiotic TYLOR Interpretation Status Amikacin <=2 ug/ml S F Amoxicillin / Clavulanate 4 ug/ml S F Ampicillin >=32 ug/ml R F Ampicillin / Sulbactam 16 ug/ml I F Aztreonam <=1 ug/ml S F Cefazolin <=4 ug/ml S F Cefepime <=1 ug/ml S F Ceftriaxone <=1 ug/ml S F Ciprofloxacin <=0.25 ug/ml S F Gentamicin >=16 ug/ml R F Meropenem <=0.25 ug/ml S F Nitrofurantoin <=16 ug/ml S F Piperacillin / Tazobactam <=4 ug/ml S F Trimethoprim / Sulfamethoxazole >=320 ug/ml R F [ S = SUSCEPTIBLE R = RESISTANT I = INTERMEDIATE S-DD = Susceptible-dose dependent NS = Non-susceptible NO = No Interpretation ] Normal [facility] Comment on above: Performed By: #### L [id number], [id number] #### Solar Design Engineer: JACKI MANCILLA ([id number]) [facility] ([address] Urinalysis complete panel (U )on 12-03-2024 Bacteria LM.HPF (Urine sed) [#/Area] Loaded Abnormal Negative /HPF [facility] Bilirubin Ql (U) Negative Negative mg/dL [facility] Clarity (U) Extra Turbid Abnormal Clear [facility] Color (U) Yellow Lt. Yellow [facility] Epithelial cells.squamous LM.HPF (Urine sed) [#/Area] 11-25 Abnormal [facility] Glucose Ql (U) Normal Normal (<70) mg/dL [facility] Hemoglobin Ql (U) 0.06 mg/dL Abnormal Negative [facility] Hyaline casts Auto (Urine sed) [#/Area] Negative Negative /LPF [facility] Interpretation and review of laboratory results Abnormal [facility] Ketones (U) [Mass/Vol] Trace Abnormal Negat clay mg/dL [facility] Leukocyte clumps LM.HPF (Urine sed) [#/Area] Many Abnormal Negative /HPF [facility] Leukocyte esterase Test strip Ql (U) 500 Abnormal Negative James/uL [facility] Mucus LM.HPF (Urine sed) [#/Area] Few Negative /LPF [facility] Nitrite Ql (U) Negative Negative [facility] Non-Squamous Epithalial Cells, Urine 3-5 Abnormal Negative /HPF [facility] pH (U) 6.0 [pH] 5.0 - 8.0 pH [facility] Protein (U) [Mass/Vol] 100 mg/dL Abnormal Negative [facility] RBC LM.HPF (Urine sed) [#/Area] 11-25 Abnormal [facility] Specific gravity (U) [Rel density] High 1.005 - 1.030 [facility] Urobilinogen (U) [Mass/Vol] Normal Normal (0-1) mg/dL [facility] WBC LM.HPF (Urine sed) [#/Area] /[HPF] Abnormal [facility] Valproate levelOrdered By: Daniel Mckee on 12-03-2024 Valproic Acid (Depakene) Level 47 ug/mL Low 50-100 [facility] Valproic Acid (Depakene) Lev maribell 12-03-2024 VALPROIC ACID 47 ug/mL Low 50-100 [facility] Comment on above: Performed By: #### L 100.0100, L501.8100, L501.7700, L500.4050 #### [facility] [address] [place], [address] Vital signsOrdered By: Marian Perez on 12-03-2024 Heart rate 90 /min bpm [facility] Work Phone: White blood cell (WBC) count Ordered By: Damir Mckee on 12-03-2024 WBC (Bld) [#/Vol] 13.8 10*3/uL High 4.4-11.0 [facility] XR Chest Single viewon 12-03 No radiographic evid ence of acute cardiopulmonary process. Report Dictated on Electronically Signed By: Micah Adler MD Electronically Signed Date/Time: 12/03/2024 8:07 PM [facility] [employer] Patient Name: KATHERYN YIP : 1945 Exam Date/Time: 12/03/2024 19:55 Procedure: XR CHEST 1 VIEW Ordering Provider: DIAMOND BLAKE Reason For Exam: fever, seizure. r/o aspiration pna EXAMINATION: Portable chest INDICATION: fever, seizure. r/o aspiration pna FINDINGS: There is no focal consolidation, sizable pleural effusion or pneumothorax. Mild to moderate elevation of right hemidiaphragm is present. The cardiac silhouette and mediastinum are within normal limits. There is mild calcification of the aortic arch. Small osteophytes of the spine are present at multiple levels. [facility] Micah Adler MD - 12/03/2024 Patient Name: KATHERYN CHINO : 1945 Exam Date/Time: 12/03/2024 19:55 Procedure: XR CHEST 1 VIEW Ordering Provider: DIAMOND BLAKE Reason For Exam: fever, seizure. r/o aspiration pna EXAMINATION: Portable chest INDICATION: fever, seizure. r/o aspiration pna FINDINGS: There is no focal consolidation, sizable pleural effusion or pneumothorax. Mild to moderate elevation of right hemidiaphragm is present. The cardiac silhouette and mediastinum are within normal limits. There is mild calcification of the aortic arch. Small osteophytes of the spine are present at multiple levels. IMPRESSION: No radiographic evidence of acute cardiopulmonary process. Report Dictated on Electronically Signed By: Micah Adler MD Electronically Signed Date/Time: 12/03/2024 8:07 PM EST [facility] Radiology Study observation (narrative) [facility] XR Chest Single viewOrdered By: Micah Adler on 12-03-2024 [facility] [employer] Work Phone: Kuldip 12-01-2024 [facility] Telephone (Dimple Dough) -------- KATHERYN CHINO ([id number]) 1945 F Date Time Provider Department 12/01/24 JAYANT JIMENEZ During your visit today, we recorded the following information about you: Nabeel Smith 12/01/2024 11:10 AM Signed Provider referred patient to rheumatology. I placed into protal under ref# [id number] Allergies As of Date: 12/01/2024 (No Known Allergies) Date Reviewed: 09/24/2024 Reviewed by: Shalini Montana LPN - Fully Assessed Prescriptions as of 12/01/2024 - lacosamide (VIMPAT) 50 mg tab Take 1 tablet by mouth daily at bedtime for 7 days, THEN 1 tablet two times a day for 7 days. THEN 1 tablet in the morning and 2 tablets at night for 7 days. Then switch to the 100 mg tablet.. - lacosamide (VIMPAT) 100 mg tab Take 1 tablet by mouth two times a day for 180 days. - midazolam (NAYZILAM) 5 mg/spray (0.1 mL) nasal spray Use 1 [place] in the nose as needed for seizures lasting longer than 3 minutes for up to 90 days. May repeat dose in alternate nostril after 10 minutes based on response and tolerability. - valproic acid (DEPAKENE) 250 mg/5 mL syrup Take 10 mL by mouth three times a day. - docusate sodium (COLACE) 100 mg capsule Take by mouth. - phenytoin chewable (DILANTIN) 50 mg tablet Take 50 mg by mouth daily at bedtime. - potassium chloride (K-TAB) 10 mEq tablet Take 10 mEq by mouth once daily. - ethosuximide (ZARONTIN) 250 mg capsule Take 1 capsule by mouth two times a day. - phenytoin ER (DILANTIN) 100 mg ER capsule Take 1 capsule by mouth three times a day. - furosemide (LASIX) 20 mg tablet Take 1 tablet by mouth every Sunday, Sunday, and Sunday. - escitalopram oxalate (LEXAPRO) 20 mg tablet Take 1 tablet by mouth once daily. - levothyroxine (SYNTHROID) 50 mcg tablet Take 1 tablet by mouth daily at 6 am. - melatonin 3 mg tablet Take 1 tablet by mouth daily at bedtime. - fluticasone (FLONASE) 50 mcg/actuation nasal spray - montelukast (SINGULAIR) 10 mg tablet - magnesium hydroxide 2,400 mg/10 mL susp Take 10 mL by mouth once daily as needed. - senna (SENNA) 8.6 mg tab Take 8.6 mg by mouth twice daily. - bisacodyl (DULCOLAX) 10 mg supp 10 mg by RECTAL route once daily as needed. - sodium phosphate-sodium bisphosphate (FLEET ENEMA) enema 1 Enema by RECTAL route one time only. - Cholecalciferol, Vitamin D3, (VITAMIN D-3) 2,000 unit cap Take by mouth. - Aluminum Hydrox-Magnesium Carb (GAVISCON EXTRA STRENGTH) 254-237.5 mg/5 mL susp Take by mouth. - Light Mineral Oil-Mineral Oil (SOOTHE XP) 1-4.5 % drop Use in both eyes. - dext 70/polycarbophil/peg/NaC l (ARTIFICIAL TEAR SOLUTION OPHTHALMIC) Use in eyes. - guaifenesin/dextromethor tanner (ROBITUSSIN-DM ORAL) Take by mouth. - loratadine (CLARITIN) 10 mg tablet Take 10 mg by mouth once daily. - losartan potassium (LOSARTAN ORAL) Take 25 mg by mouth. - pantoprazole DR (PROTONIX) 40 mg tablet Take 40 mg by mouth once daily. - acetaminophen (TYLENOL) 325 mg tablet Take 650 mg by mouth every 6 hours as needed. 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 History of long-term treatment with high-risk m*08/07/2018 Dysarthria [R47.1] 08/07/2018 Nonintractable epilepsy without status epilepti*07/29/2019 Seizure (HCC) [R56.9] 08/17/2024 Breakthrough seizure (HCC) [G40.919] 08/17/2024 Obesity, Class I, BMI 30-34.9 [E66.811] 08/18/2024 DNR (do not resuscitate) discussion [Z71.89] 08/18/2024 Goals of care, counseling/discussion [Z71.89] 08/18/2024 Encounter Status:Closed by NABEEL SMITH on 12/01/24 [facility] CNPN Telephone (NE50MN) -------- KATHERYN CHINO ([id number]) 1945 F Date Time Provider Department 12/01/24 JAYANT JIMENEZ NE50MN During your visit today, we recorded the following information about you: Silvia Rogers RN 12/01/2024 12:[address] Jimenez, This patient's bone scan showed osteoporosis. I placed a consult to Rheumatology to manage this. Can you please let the patient know. Thanks KMG ==== MEGA Christianson Christina M, RN 12/02/2024 12:33 PM Addendum Spoke with nurse Becker from patient's facility. Informed her of message per Dr. Jimenez with read back. Informed her rheumatology consult was faxed along with DEXA scan report. Consult and DEXA report faxed via [facility]ax to: [facility] PH: [phone] FAX : [phone] Confirmation received. 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 THEN 1 tablet in the morning and 2 tablets at night for 7 days. Then switch to the 100 mg tablet.. - lacosamide (VIMPAT) 100 mg tab Take 1 tablet by mouth two times a day for 180 days. - midazolam (NAYZILAM) 5 mg/spray (0.1 mL) nasal spray Use 1 [place] in the nose as needed for seizures lasting longer than 3 minutes for up to 90 days. May repeat dose in alternate nostril after 10 minutes based on response and tolerability. - valproic acid (DEPAKENE) 250 mg/5 mL syrup Take 10 mL by mouth three times a day. - docusate sodium (COLACE) 100 mg capsule Take by mouth. - phenytoin chewable (DILANTIN) 50 mg tablet Take 50 mg by mouth daily at bedtime. - potassium chloride (K-TAB) 10 mEq tablet Take 10 mEq by mouth once daily. - ethosuximide (ZARONTIN) 250 mg capsule Take 1 capsule by mouth two times a day. - phenytoin ER (DILANTIN) 100 mg ER capsule Take 1 capsule by mouth three times a day. - furosemide (LASIX) 20 mg tablet Take 1 tablet by mouth every Sunday, Sunday, and Sunday. - escitalopram oxalate (LEXAPRO) 20 mg tablet Take 1 tablet by mouth once daily. - levothyroxine (SYNTHROID) 50 mcg tablet Take 1 tablet by mouth daily at 6 am. - melatonin 3 mg tablet Take 1 tablet by mouth daily at bedtime. - fluticasone (FLONASE) 50 mcg/actuation nasal spray - montelukast (SINGULAIR) 10 mg tablet - magnesium hydroxide 2,400 mg/10 mL susp Take 10 mL by mouth once daily as needed. - senna (SENNA) 8.6 mg tab Take 8.6 mg by mouth twice daily. - bisacodyl (DULCOLAX) 10 mg supp 10 mg by RECTAL route once daily as needed. - sodium phosphate-sodium bisphosphate (FLEET ENEMA) enema 1 Enema by RECTAL route one time only. - Cholecalciferol, Vitamin D3, (VITAMIN D-3) 2,000 unit cap Take by mouth. - Aluminum Hydrox-Magnesium Carb (GAVISCON EXTRA STRENGTH) 254-237.5 mg/5 mL susp Take by mouth. - Light Mineral Oil-Mineral Oil (SOOTHE XP) 1-4.5 % drop Use in both eyes. - dext 70/polycarbophil/peg/NaC l (ARTIFICIAL TEAR SOLUTION OPHTHALMIC) Use in eyes. - guaifenesin/dextromethor tanner (ROBITUSSIN-DM ORAL) Take by mouth. - loratadine (CLARITIN) 10 mg tablet Take 10 mg by mouth once daily. - losartan potassium (LOSARTAN ORAL) Take 25 mg by mouth. - pantoprazole DR (PROTONIX) 40 mg tablet Take 40 mg by mouth once daily. - acetaminophen (TYLENOL) 325 mg tablet Take 650 mg by mouth every 6 hours as needed. 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 History of long-term treatment with high-risk m*08/07/2018 Dysarthria [R47.1] 08/07/2018 Nonintractable epilepsy without status epilepti*07/29/2019 Seizure (HCC) [R56.9] 08/17/2024 Breakthrough seizure (HCC) [G40.919] 08/17/2024 Obesity, Class I, BMI 30-34.9 [E66.811] 08/18/2024 DNR (do not resuscitate) discussion [Z71.89] 08/18/2024 Goals of care, counseling/discussion [Z71.89] 08/18/2024 Encounter Status:Closed by SILVIA ROGERS on 12/02/24 Normal [facility] BD DXA - AXIAL SKELETONon BD DXA - AXIAL SKELETON * * *Final Repor t* * * DATE OF EXAM: Nov 26 2024 11:08AM AWX 0804 - BD DXA - AXIAL SKELETON / PROCEDURE REASON: multiple diagnoses * * * * Physician Interpretation * * * * EXAMINATION: DXA BONE DENSITOMETRY BD DXA - AXIAL SKELETON, BD DXA TRABECLR BONE SCORE (TBS) PATIENT DEMOGRAPHICS: Age: 79 years, Gender: Female SCANNER INFORMATION: DXA Model: [email or web address] - [employer] [id number] Date Scanned: 11/26/2024 11:08 AM CLINICAL HISTORY: DIAGNOSTIC 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 osteoporosis senior care (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 Postmenopausal. RISK FACTORS FOR OSTEOPOROSIS AND ASSOCIATED FRACTURES REPORTED BY THIS PATIENT: Please refer to Bone Health Questionnaire in the EMR CURRENT THERAPY: Please refer to Bone Health Questionnaire in the EMR TECHNICAL LIMITATIONS: Degenerative disease of the spine RESULTS: Lumbar spine (L1, L2, L3, L4): 0.888 g/cm2, T-score -2.4, Z-score -1.1 Right Femoral Neck: 0.505 g/cm2, T-score -3.8, Z-score -2.1 Right Total Hip: 0.445 g/cm2, T-score -4.5, Z-score -2.9 Left Femoral Neck: 0.602 g/cm2, T-score -3.1, Z-score -1.4 Left Total Hip: 0.494 g/cm2, T-score -4.1, Z-score -2.5 No comparison data - the patient has not had a previous bone density in the [facility] or the previous bone density was performed on a different DXA machine (new, updated model or different location) within the [facility]. VERTEBRAL FRACTURE ASSESSMENT Not performed. TRABECULAR BONE ASSESSMENT TBS score: 1.113 Bone micro-architecture: Degraded (< or = 1.230) IMPRESSION: THE LOWEST T-SCORE IS -4.5 IN THE LEFT HIP 1) DIAGNOSIS (based on BMD alone): OSTEOPOROSIS Caution: Medical conditions other than osteoporosis may cause low bone density, such as osteomalacia or renal osteodystrophy. Clinical correlation is necessary. 2) FRACTURE RISK (Based on TBS adjusted FRAX): 10-year absolute fracture risk: - major osteoporotic fracture = 32.8 % - hip fracture = 17.0 % - A diagnosis of Osteoporosis, a 10 year probability of hip fracture greater than or equal to 3% or a 10 year probability of any major osteoporosis-related fracture greater than or equal to 20% should be considered for treatment. - DXA scanner generated FRAX calculations may slightly differ from online FRAX calculations due to differences in software versions. - All recommendations and calculations are to be considered as guidelines and should not replace sound clinical judgement - Caution: Fracture risk may be increased independent of BMD in patients with corticosteroid use, age greater than 65 years, or a history of prior fragility fracture. RECOMMENDATIONS: Follow-up in 2 years or as clinically indicated. Patients that are taking corticosteroids, are transplant recipients or have hyperparathyroidism should have annual follow-up. Follow-up scans should always be done on the same machine for accurate comparison. FOR MORE INFORMATION ABOUT DIAGNOSIS AND TREATMENT: [facility] Center for Osteoporosis and Metabolic Bone Disease:? www.ccf.org/arthritis/os javed National Osteoporosis Foundation:? www.nof.org International Society of Clinical Densitometry www.iscd.org Order Dispatcher Chief: PSCB Transcribe Date/Time: Nov 29 2024 2:05P Dictated by : ALEXA CRUZ MD This examination was interpreted and the report reviewed and electronically signed by: ALEXA CRUZ MD on Nov 29 2024 2:06PM EST [id number] -4.5 Normal [facility] BD DXA TRABECLR BONE SCORE ( TBS)on 11-26-2024 BD DXA TRABECLR BONE SCORE (TBS) * * *Final Report* * * DATE OF EXAM: Nov 26 2024 11:08AM AWX 0801 - BD DXA TRABECLR BONE SCORE (TBS) / PROCEDURE REASON: 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 osteoporosis * * * * Physician Interpretation * * * * EXAMINATION: DXA BONE DENSITOMETRY BD DXA - AXIAL SKELETON, BD DXA TRABECLR BONE SCORE (TBS) PATIENT DEMOGRAPHICS: Age: 79 years, Gender: Female SCANNER INFORMATION: DXA Model: [email or web address] - [employer] [id number] Date Scanned: 11/26/2024 11:08 AM CLINICAL HISTORY: DIAGNOSTIC 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 osteoporosis senior care (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 Postmenopausal. RISK FACTORS FOR OSTEOPOROSIS AND ASSOCIATED FRACTURES REPORTED BY THIS PATIENT: Please refer to Bone Health Questionnaire in the EMR CURRENT THERAPY: Please refer to Bone Health Questionnaire in the EMR TECHNICAL LIMITATIONS: Degenerative disease of the spine RESULTS: Lumbar spine (L1, L2, L3, L4): 0.888 g/cm2, T-score -2.4, Z-score -1.1 Right Femoral Neck: 0.505 g/cm2, T-score -3.8, Z-score -2.1 Right Total Hip: 0.445 g/cm2, T-score -4.5, Z-score -2.9 Left Femoral Neck: 0.602 g/cm2, T-score -3.1, Z-score -1.4 Left Total Hip: 0.494 g/cm2, T-score -4.1, Z-score -2.5 No comparison data - the patient has not had a previous bone density in the [facility] or the previous bone density was performed on a different DXA machine (new, updated model or different location) within the [facility]. VERTEBRAL FRACTURE ASSESSMENT Not performed. TRABECULAR BONE ASSESSMENT TBS score: 1.113 Bone micro-architecture: Degraded (< or = 1.230) IMPRESSION: THE LOWEST T-SCORE IS -4.5 IN THE LEFT HIP 1) DIAGNOSIS (based on BMD alone): OSTEOPOROSIS Caution: Medical conditions other than osteoporosis may cause low bone density, such as osteomalacia or renal osteodystrophy. Clinical correlation is necessary. 2) FRACTURE RISK (Based on TBS adjusted FRAX): 10-year absolute fracture risk: - major osteoporotic fracture = 32.8 % - hip fracture = 17.0 % - A diagnosis of Osteoporosis, a 10 year probability of hip fracture greater than or equal to 3% or a 10 year probability of any major osteoporosis-related fracture greater than or equal to 20% should be considered for treatment. - DXA scanner generated FRAX calculations may slightly differ from online FRAX calculations due to differences in software versions. - All recommendations and calculations are to be considered as guidelines and should not replace sound clinical judgement - Caution: Fracture risk may be increased independent of BMD in patients with corticosteroid use, age greater than 65 years, or a history of prior fragility fracture. RECOMMENDATIONS: Follow-up in 2 years or as clinically indicated. Patients that are taking corticosteroids, are transplant recipients or have hyperparathyroidism should have annual follow-up. Follow-up scans should always be done on the same machine for accurate comparison. FOR MORE INFORMATION ABOUT DIAGNOSIS AND TREATMENT: [facility] Center for Osteoporosis and Metabolic Bone Disease:? www.ccf.org/arthritis/os javed National Osteoporosis Foundation:? www.nof.org International Society of Clinical Densitometry www.iscd.org Order Dispatcher Chief: SUNSHINE Transcribe Date/Time: Nov 29 2024 2:05P Dictated by : ALEXA CRUZ MD This examination was interpreted and the report reviewed and electronically signed by: ALEXA CRUZ MD on Nov 29 2024 2:06PM EST [id number] -4.5 Normal [facility] Phenytoin (Dilantin) Levelon 11-14-2024 PHENYTOIN 8.8 mL Low 10.0-20.0 [facility] Comment on above: Order Comment: 1937 Performed By: #### L [id number] #### [facility] [address] [place], [address] Phenytoin [Mass/Vol]Ordered By: Todd Velasquez on 11-14-2024 Phenytoin (Dilantin) Level 8.8 mL Low 10.0-20.0 [facility] Serum or plasma phenytoin le kate (mass/volume)Ordered By: Todd Velasquez on 11-14-2024 Phenytoin [Mass/Vol] 8.8 mL Low 10.0-20.0 [facility] CNPNon 11-11-2024 CNPN Telephone (NEUSES) -------- KATHERYN CHINO ([id number]) 1945 F Date Time Provider Department 11/11/24 JAYANT JIMENEZ During your visit today, we recorded the following information about you: Franchesca Arana 11/11/2024 10:48 AM Signed Received Seizure monitoring report from [facility]. Uploaded to [facility]. Silvia Rogers RN 11/11/2024 11:04 AM Signed Noted. Spoke with nurse Gisella, recommendations provided per MARIO. Letter, copies of LCM, Nayzilam spray faxed to facility. See 11/10/24 phone encounter. Silvia Rogers RN Allergies As of Date: 11/11/2024 (No Known Allergies) Date Reviewed: 09/24/2024 Reviewed by: Shalini Montana LPN - Fully Assessed Reason for Visit: Received Outside Medical Records [[id number]] Cmt: Seizure monitoring report Prescriptions as of 11/11/2024 - lacosamide (VIMPAT) 50 mg tab Take 1 tablet by mouth daily at bedtime for 7 days, THEN 1 tablet two times a day for 7 days. THEN 1 tablet in the morning and 2 tablets at night for 7 days. Then switch to the 100 mg tablet.. - lacosamide (VIMPAT) 100 mg tab Take 1 tablet by mouth two times a day for 180 days. - midazolam (NAYZILAM) 5 mg/spray (0.1 mL) nasal spray Use 1 [place] in the nose as needed for seizures lasting longer than 3 minutes for up to 90 days. May repeat dose in alternate nostril after 10 minutes based on response and tolerability. - valproic acid (DEPAKENE) 250 mg/5 mL syrup Take 10 mL by mouth three times a day. - docusate sodium (COLACE) 100 mg capsule Take by mouth. - phenytoin chewable (DILANTIN) 50 mg tablet Take 50 mg by mouth daily at bedtime. - potassium chloride (K-TAB) 10 mEq tablet Take 10 mEq by mouth once daily. - ethosuximide (ZARONTIN) 250 mg capsule Take 1 capsule by mouth two times a day. - phenytoin ER (DILANTIN) 100 mg ER capsule Take 1 capsule by mouth three times a day. - furosemide (LASIX) 20 mg tablet Take 1 tablet by mouth every Sunday, Sunday, and Sunday. - escitalopram oxalate (LEXAPRO) 20 mg tablet Take 1 tablet by mouth once daily. - levothyroxine (SYNTHROID) 50 mcg tablet Take 1 tablet by mouth daily at 6 am. - melatonin 3 mg tablet Take 1 tablet by mouth daily at bedtime. - fluticasone (FLONASE) 50 mcg/actuation nasal spray - montelukast (SINGULAIR) 10 mg tablet - magnesium hydroxide 2,400 mg/10 mL susp Take 10 mL by mouth once daily as needed. - senna (SENNA) 8.6 mg tab Take 8.6 mg by mouth twice daily. - bisacodyl (DULCOLAX) 10 mg supp 10 mg by RECTAL route once daily as needed. - sodium phosphate-sodium bisphosphate (FLEET ENEMA) enema 1 Enema by RECTAL route one time only. - Cholecalciferol, Vitamin D3, (VITAMIN D-3) 2,000 unit cap Take by mouth. - Aluminum Hydrox-Magnesium Carb (GAVISCON EXTRA STRENGTH) 254-237.5 mg/5 mL susp Take by mouth. - Light Mineral Oil-Mineral Oil (SOOTHE XP) 1-4.5 % drop Use in both eyes. - dext 70/polycarbophil/peg/NaC l (ARTIFICIAL TEAR SOLUTION OPHTHALMIC) Use in eyes. - guaifenesin/dextromethor tanner (ROBITUSSIN-DM ORAL) Take by mouth. - loratadine (CLARITIN) 10 mg tablet Take 10 mg by mouth once daily. - losartan potassium (LOSARTAN ORAL) Take 25 mg by mouth. - pantoprazole DR (PROTONIX) 40 mg tablet Take 40 mg by mouth once daily. - acetaminophen (TYLENOL) 325 mg tablet Take 650 mg by mouth every 6 hours as needed. 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 Telephone (NE50MN) -------- KATHERYN CHINO ([id number]) 1945 F Date Time Provider Department 11/10/24 JAYANT JIMENEZ NE50MN During your visit today, we recorded the following information about you: Andrea Mildred 11/10/2024 1:45 PM Signed Seizure activity: Name of Caller : Dimitri Becker Home where pt resides Relationship to patient: Caregiver Contact phone number: [phone] Date of seizure: 11/07/24 Duration: 20 minutes Back to Baseline (Yes/No): yes Emergency treatment needed (Yes/No): no Patient of Silvia Ponce RN 11/10/2024 4:33 PM Signed MALCOLM 09/24/24 IMPRESSION: Ms.Patricia Chino is a 79-year-old right-handed woman with 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 Seizure semiology consists of generalized tonic-clonic seizures as well as absence seizures. Family has not noticed absent seizures in a long time. Most recent G TCS in August 2024 was prolonged. Patient has been on chronic ASM therapy with Dilantin, Depakote and ethosuximide. 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 She has been wheelchair-bound due to gait difficulty. Her exam shows severely dysarthric speech likely reflecting cerebellar dysfunction. 09/24/2024: We discussed the negative effects of long-term Dilantin therapy including worsening cerebellar function, risk of osteoporosis. Patient is wheelchair-bound and lives at a facility with constant supervision with no recent falls. We will keep the discussion open about switching Dilantin at future visits. Medication doses were confirmed with the facility (I spoke to the nurse taking care of the patient) which shows recent decrease in Dilantin and Depakote doses following serum levels. For now, we will recheck medication levels and ammonia levels to evaluate for somnolence. Further dose adjustments to be based on ASM levels. PLAN: Continue Dilantin 100 mg twice daily, Depakote 750 mg 3 times daily, ethosuximide 250 mg twice daily Recheck serum ASM levels and ammonia level DEXA scan for evaluation of osteoporosis due to long-term Dilantin use Follow-up in 3 months Future options: Switch Dilantin to Vimpat, zonisamide. ==== NOW Seizure Call - spoke with Rosita Last Visit: 09/24/2024 Next Visit: Date and Time of seizure: 11/07/24, 7:20am Seizure description: patient's room mate said she was having a seizure, caregiver went into room, the patient was jerking, arms and legs stiffened, foaming at the mouth, patient was diaphoretic, eyes rolled back. Duration: 20 minutes Witnessed: by caregiver Aura: Last Seizure: TB: yes UI: no Rescue Medication used: n/a ASM: Depakote 750 mg TID Dilantin 100 mg BID ethosuximide 250 mg BID Triggers: No missed doses, the flu is going around, she had cough and runny nose, did not progress. Back to [place]: yes Other: Facility provider was notified. Stat blood work, ASM levels, CBC ordered. PHT was 7.9, provider increase to 100mg TID, ordered repeat levels for 11/14. Transfer to ED was also ordered. By the time EMS arrived, seizure was over and family declined. Informed Rosita Harrell should be called if the patient has LOC, SOB or breathing stops, severe seizure, seizure clusters, and seizures that last for more than 2-3 minutes. Ferflora verbalized understanding. Typical wait time for EMS to arrive in the area is 20 minutes, [place]. The patient does not have a seizure rescue medication, nurse is requesting. Forwarded to [facility] [address] [place] for review. MEGA Christianson Kelly, APRN.DWAYNE 11/10/2024 4:47 PM Signed Script for Nayzilam sent. Would consider starting Vimpat with goal of weaning off PHT since she reaches goal dose. If they are in agreement can provide titration. Wk 1: LCM 50 mg at bedtime/ PHT 100 mg BID Wk 2: LCM 50 mg bid Wk 3: LCM 50/10, decrease PHT to 100 mg QHS Wk 4: LCM 100/100, stop PHT Artis Hamilton APRN.Silvia Willis RN 11/10/2024 5:07 PM Signed Spoke with nurse, Gisella. Informed of recommendations, gave verbal of rx LCM titration, PHT wean with read back. She is requesting copy of rx sent to their facility. MEGA Christianson Kelly, ANYI.DWAYNE 11/11/2024 6:05 AM Signed The following approved medication requests have been transmitted electronically. Requested Prescriptions Signed Prescriptions Disp Refills midazolam (NAYZILAM) 5 mg/spray (0.1 mL) nasal spray 2 Each 0 Sig: Use 1 [place] in the nose as needed for seizures lasting longer than 3 minutes for up to 90 days. May repeat dose in alternate nostril after 10 minutes based on response and tolerability. Authorizing Provider: ARTIS HAMILTON lacosamide (VIMPAT) 50 mg tab 42 tablet 0 Sig: Take 1 tablet by mouth daily at bedtime for 7 days, THE (more content not included)... Normal [facility] Albumin to globulin ratioOrd ered By: [facility] on 11-08-2024 Albumin/Globulin [Mass ratio] 0.8 {ratio} Low 0.9-2.4 [facility] Bilirubin, totalOrdered By: [facility] on 11-08-2024 Bilirubin [Mass/Vol] 0.40 mg/dL 0.20-1.00 [facility] Comment on above: For patients on eltr ombopag therapy, use of Dimension [place] TBIL is not recommended. Blood urea nitrogen (BUN)/cr eatinine ratioOrdered By: [facility] on 11-08-2024 Urea nitrogen/Creatinine [Mass ratio] 24.0 mg/mg High 10- [facility] CBC-Complete Blood Cnt No Di ffon 11-08-2024 Erythrocyte distribution width (RBC) [Ratio] 13.2 % Normal 11.6-14.6 [facility] Comment on above: Performed By: #### L [id number] #### [facility] [address] [place], [place], [id number] Hematocrit (Bld) [Volume fraction] 37.8 % Normal 37-47 [facility] Comment on above: Performed By: #### L [id number] #### [facility] [address] [place], [address] Hemoglobin (Bld) [Mass/Vol] 11.9 g/dL Low 12.0-15.0 [facility] Comment on above: Performed By: #### L 501.7700 #### [facility] [address] [place], [address] MCH (RBC) [Entitic mass] 28.2 pg Normal 27.0-32.0 [facility] Comment on above: Performed By: #### L [id number] #### [facility] [address] [place], [address] MCHC (RBC) [Mass/Vol] 31.5 g/dL Low 32-36 [facility] Comment on above: Performed By: #### L [id number] #### [facility] [address] [place], [address] MCV (RBC) [Entitic vol] 89.6 fL Normal 81-99 [facility] Comment on above: Performed By: #### L 501.7700 #### [facility] [address] [place], [address] Platelet mean volume (Bld) [Entitic vol] 12.1 fL High 6.2-12.0 [facility] Comment on above: Performed By: #### L 501.7700 #### [facility] [address] [place], [address] Platelets (Bld) [#/Vol] 227 10*3/uL Normal 150-450 [facility] Comment on above: Performed By: #### L 501.7700 #### [facility] [address] [place], [address] RBC (Bld) [#/Vol] 4.22 10*6/uL Normal 4.2-5.4 [facility] Comment on above: Performed By: #### L 501.7700 #### [facility] [address] [place], [address] RDW SD 43.1 fl Normal 35.1-43.9 [facility] Comment on above: Performed By: #### L 501.7700 #### [facility] [address] [place], [address] WBC (Bld) [#/Vol] 6.4 10*3/uL Normal 4.4-11.0 [facility] Comment on above: Performed By: #### L 501.7700 #### [facility] [address] [place], [address] Carbon dioxide measurementOr dered By: [facility] on 11-08-2024 CO2 [Moles/Vol] 28.0 mmol/L 21.0-32.0 [facility] Chloride measurementOrdered By: [facility] on 11-08-2024 Chloride [Moles/Vol] 109 mmol/L High 98-107 [facility] Comprehensive Metabolic Prof ilon 11-08-2024 Albumin [Mass/Vol] 3.7 g/dL Normal 3.2-5.0 [facility] Comment on above: Performed By: #### L 501.8100, L501.7700 #### [facility] [address] [place], [address] Albumin/Globulin [Mass ratio] 0.8 {ratio} Low 0.9-2.4 [facility] Comment on above: Performed By: #### L 501.8100, L501.7700 #### [facility] [address] [place], [address] ALK P 141 U/L High 45-117 [facility] Comment on above: Performed By: #### L 501.8100, L501.7700 #### [facility] [address] [place], [address] ALT [Catalytic activity/Vol] 17 U/L Normal 13-56 [facility] Comment on above: Performed By: #### L 501.8100, L501.7700 #### [facility] [address] [place], [address] AST [Catalytic activity/Vol] 26 U/L Normal 15-37 [facility] Comment on above: Performed By: #### L 501.8100, L501.7700 #### [facility] [address] [place], [address] Bilirubin [Mass/Vol] 0.40 mg/dL Normal 0.20-1.00 [facility] Comment on above: Result Comment: For patients on eltrombopag therapy, use of Dimension Altura TBIL is not recommended. Performed By: #### L 501.8100, L501.7700 #### [facility] [address] [place], [address] BUN/CRE 24.0 RATIO High 10-20 [facility] Comment on above: Performed By: #### L 501.8100, L501.7700 #### [facility] [address] [place], [address] CA,Total 9.7 mg/dL Normal 8.5-10.1 [facility] Comment on above: Performed By: #### L 501.8100, L501.7700 #### [facility] [address] [place], [address] Chloride [Moles/Vol] 109 mmol/L High 98-107 [facility] Comment on above: Performed By: #### L 501.8100, L501.7700 #### [facility] [address] [place], [address] CO2 [Moles/Vol] 28.0 mmol/L Normal 21.0-32.0 [facility] Comment on above: Performed By: #### L 501.8100, L501.7700 #### [facility] [address] [place], [address] Creatinine [Mass/Vol] 0.83 mg/dL Normal 0.55-1.02 [facility] Comment on above: Result Comment: The validity of the calculated GFR GFRAA in patients over 70 years has not been determined. Clinical correlation is essential. Performed By: #### L 501.8100, L501.7700 #### [facility] [address] [place], [address] EST GFR - AA 85 mL/min Normal >60 [facility] Comment on above: Result Comment: Afri can Kyrgyz GFR Calc Performed By: #### L 501.8100, L501.7700 #### [facility] [address] [place], [address] GAP 3 Low 5-15 [facility] Comment on above: Performed By: #### L 501.8100, L501.7700 #### [facility] [address] [place], [address] GFR/1.73 sq M.predicted among non-blacks MDRD (S/P/Bld) [Vol rate/Area] 71 mL/min/{1.73_m2} Normal >60 [facility] Comment on above: Result Comment: Non- GFR Calc Performed By: #### L 501.8100, L501.7700 #### [facility] [address] [place], [address] Globulin (S) [Mass/Vol] 4.6 g/dL High 2.2-4.2 [facility] Comment on above: Performed By: #### L 501.8100, L501.7700 #### [facility] [address] [place], [address] Glucose [Mass/Vol] 79 mg/dL Normal 74-106 [facility] Comment on above: Performed By: #### L 501.8100, L501.7700 #### [facility] [address] [place], [address] Potassium [Moles/Vol] 4.9 mmol/L Normal 3.5-5.1 [facility] Comment on above: Performed By: #### L 501.8100, L501.7700 #### [facility] [address] [place], [address] Sodium [Moles/Vol] 140 mmol/L Normal 136-145 [facility] Comment on above: Performed By: #### L 501.8100, L501.7700 #### [facility] [address] [place], [address] T PROT 8.3 g/dL High 6.4-8.2 [facility] Comment on above: Performed By: #### L 501.8100, L501.7700 #### [facility] [address] [place], [address] Urea nitrogen [Mass/Vol] 20 mg/dL High 7-18 [facility] Comment on above: Performed By: #### L 501.8100, L501.7700 #### [facility] [address] [place], [address] Erythrocyte distribution wid th (RBC) [Ratio]Ordered By: [facility] on 11-08-2024 Erythrocyte distribution width (RBC) [Entitic vol] 43.1 fL 35.1-43.9 [facility] Erythrocyte distribution wid th ratioOrdered By: [facility] on 11-08-2024 Erythrocyte distribution width (RBC) [Ratio] 13.2 % 11.6-14.6 [facility] Erythrocyte distribution wid th standard deviationOrdered By: [facility] on 11-08-2024 Erythrocyte distribution width (RBC) [Ratio] 43.1 fl 35.1-43.9 [facility] Estimated glomerular filtrat ion rate (GFR) AmericanOrdered By: [facility] on 11-08-2024 Estimated GFR (MDRD) Amer 85 mL/min >60 [facility] Comment on above: GFR Calc Glomerular filtration rate ( GFR) estimationOrdered By: [facility] on 11-08-2024 Estimated GFR (MDRD) Non-Af Amer 71 mL/min >60 [facility] Comment on above: Non- GFR Calc GFR/1.73 sq M.predicted among non-blacks MDRD (S/P/Bld) [Vol rate/Area] 71 mL/min/{1.73_m2} >60 [facility] Comment on above: Non- GFR Calc Glucose measurementOrdered B y: [facility] on 11-08-2024 Glucose [Mass/Vol] 79 mg/dL 74-106 [facility] Hematocrit Auto (Bld) [Volum e fraction]Ordered By: [facility] on 11-08-2024 Hematocrit (Bld) [Volume fraction] 37.8 % 37-47 [facility] Hemoglobin measurementOrdere d By: [facility] on 11-08-2024 Hemoglobin (Bld) [Mass/Vol] 11.9 g/dL Low 12.0-15.0 [facility] - Chemistry and C hemistry - challengeOrdered By: [facility] on 11-08-2024 AST [Catalytic activity/Vol] 26 U/L 15-37 [facility] MCV (mean corpuscular volume ) determinationOrdered By: [facility] on 11-08-2024 MCV (RBC) [Entitic vol] 89.6 fL 81-99 [facility] Mean corpuscular hemoglobin (MCH) determinationOrdered By: [facility] on 11-08-2024 MCH (RBC) [Entitic mass] 28.2 pg 27.0-32.0 [facility] Mean corpuscular hemoglobin concentration (MCHC) determinationOrdered By: [facility] on 11-08-2024 MCHC (RBC) [Mass/Vol] 31.5 g/dL Low 32-36 [facility] Mean platelet volume determi nationOrdered By: [facility] on 11-08-2024 Platelet mean volume (Bld) [Entitic vol] 12.1 fL High 6.2-12.0 [facility] Phenytoin (Dilantin) Levelon 11-08-2024 PHENYTOIN 7.9 mL Low 10.0-20.0 [facility] Comment on above: Order Comment: 211.2 0000 Performed By: #### L 501.8100, L501.7700 #### [facility] [address] [place], [address] Phenytoin [Mass/Vol]Ordered By: [facility] on 11-08-2024 Phenytoin (Dilantin) Level 7.9 mL Low 10.0-20.0 [facility] Platelet countOrdered By: [facility] on 11-08-2024 Platelets (Bld) [#/Vol] 227 10*3/uL 150-450 [facility] Potassium measurementOrdered By: [facility] on 11-08-2024 Potassium [Moles/Vol] 4.9 mmol/L 3.5-5.1 [facility] RBC Auto (Bld) [#/Vol]Ordere d By: [facility] on 11-08-2024 RBC (Bld) [#/Vol] 4.22 10*6/uL 4.2-5.4 [facility] Serum anion gap measurementO rdered By: [facility] on 11-08-2024 Anion gap [Moles/Vol] 3 mmol/L Low 5-15 [facility] Serum globulin measurementOr dered By: [facility] on 11-08-2024 Globulin (S) [Mass/Vol] 4.6 g/dL High 2.2-4.2 [facility] Serum or plasma alanine ignacio otransferase (ALT) measurementOrdered By: [facility] on 11-08-2024 ALT [Catalytic activity/Vol] 17 U/L 13-56 [facility] Serum or plasma albumin jacob urement (mass/volume)Ordered By: [facility] on 11-08-2024 Albumin [Mass/Vol] 3.7 g/dL 3.2-5.0 [facility] Serum or plasma alkaline phillip sphatase measurementOrdered By: [facility] on 11-08-2024 ALP [Catalytic activity/Vol] 141 U/L High 45-117 [facility] Serum or plasma calcium jacob urement (mass/volume)Ordered By: [facility] 11-08-[facility]24 Calcium [Mass/Vol] 9.7 mg/dL 8.5-10.1 [facility] Serum or plasma creatinine m easurement (mass/volume)Ordered By: [facility] on 11-08-2024 Creatinine [Mass/Vol] 0.83 mg/dL 0.55-1.02 [facility] Comment on above: The validity of the calculated GFR & GFRAA in patients over 70 years has not been determined. Clinical correlation is essential. Serum or plasma phenytoin le kate (mass/volume)Ordered By: [facility] on 11-08-2024 Phenytoin [Mass/Vol] 7.9 mL Low 10.0-20.0 [facility] Serum or plasma urea nitroge n measurement (mass/volume)Ordered By: [facility] on 11-08-2024 Urea nitrogen [Mass/Vol] 20 mg/dL High 7-18 [facility] Sodium levelOrdered By: [facility] on 11-08-2024 Sodium [Moles/Vol] 140 mmol/L 136-145 [facility] Total proteinOrdered By: [facility] on 11-08-2024 Protein [Mass/Vol] 8.3 g/dL High 6.4-8.2 [facility] Valproate levelOrdered By: [facility] on 11-08-2024 Valproic Acid (Depakene) Level 68 ug/mL 50-100 [facility] Valproic Acid (Depakene) Lev maribell 11-08-2024 VALPROIC ACID 68 ug/mL Normal 50-100 [facility] Comment on above: Order Comment: 211.2 0000 Performed By: #### L 501.8100, L501.7700 #### [facility] [address] [place], [address] White blood cell (WBC) count Ordered By: [facility] on 11-08-2024 WBC (Bld) [#/Vol] 6.4 10*3/uL 4.4-11.0 [facility] 11-07-[address] [facility] Telephone (NE50MN) -------- JHONATANJOSEKATHERYN ([id number]) 1945 F Date Time Provider Department 11/07/24 JAYANT JIMENEZ NE50MN During your visit today, we recorded the following information about you: Yocasta Rivers 11/07/2024 3:48 PM Signed General call : Full name of person calling: [facility] room Relationship to patient: Phone # : Reason for call: seizure monitoring report Patient of Dr. Jimenez upload Silvia Rogers RN 11/10/2024 4:34 PM Signed See 11/10/24 phone encounter. Silvia Rogers RN Allergies As of Date: 11/07/2024 (No Known Allergies) Date Reviewed: 09/24/2024 Reviewed by: Shalini Montana LPN - Fully Assessed Reason for Visit: general [Other] Cmt: seizure monitoring report Prescriptions as of 11/10/2024 - valproic acid (DEPAKENE) 250 mg/5 mL syrup Take 10 mL by mouth three times a day. - docusate sodium (COLACE) 100 mg capsule Take by mouth. - phenytoin chewable (DILANTIN) 50 mg tablet Take 50 mg by mouth daily at bedtime. - potassium chloride (K-TAB) 10 mEq tablet Take 10 mEq by mouth once daily. - ethosuximide (ZARONTIN) 250 mg capsule Take 1 capsule by mouth two times a day. - phenytoin ER (DILANTIN) 100 mg ER capsule Take 1 capsule by mouth three times a day. - furosemide (LASIX) 20 mg tablet Take 1 tablet by mouth every Sunday, Sunday, and Sunday. - escitalopram oxalate (LEXAPRO) 20 mg tablet Take 1 tablet by mouth once daily. - levothyroxine (SYNTHROID) 50 mcg tablet Take 1 tablet by mouth daily at 6 am. - melatonin 3 mg tablet Take 1 tablet by mouth daily at bedtime. - fluticasone (FLONASE) 50 mcg/actuation nasal spray - montelukast (SINGULAIR) 10 mg tablet - magnesium hydroxide 2,400 mg/10 mL susp Take 10 mL by mouth once daily as needed. - senna (SENNA) 8.6 mg tab Take 8.6 mg by mouth twice daily. - bisacodyl (DULCOLAX) 10 mg supp 10 mg by RECTAL route once daily as needed. - sodium phosphate-sodium bisphosphate (FLEET ENEMA) enema 1 Enema by RECTAL route one time only. - Cholecalciferol, Vitamin D3, (VITAMIN D-3) 2,000 unit cap Take by mouth. - Aluminum Hydrox-Magnesium Carb (GAVISCON EXTRA STRENGTH) 254-237.5 mg/5 mL susp Take by mouth. - Light Mineral Oil-Mineral Oil (SOOTHE XP) 1-4.5 % drop Use in both eyes. - dext 70/polycarbophil/peg/NaC l (ARTIFICIAL TEAR SOLUTION OPHTHALMIC) Use in eyes. - guaifenesin/dextromethor tanner (ROBITUSSIN-DM ORAL) Take by mouth. - loratadine (CLARITIN) 10 mg tablet Take 10 mg by mouth once daily. - losartan potassium (LOSARTAN ORAL) Take 25 mg by mouth. - pantoprazole DR (PROTONIX) 40 mg tablet Take 40 mg by mouth once daily. - acetaminophen (TYLENOL) 325 mg tablet Take 650 mg by mouth every 6 hours as needed. 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/07/2018 History of long-term treatment with high-risk m*08/07/2018 Dysarthria [R47.1] 08/07/2018 Nonintractable epilepsy without status epilepti*07/29/2019 Seizure (HCC) [R56.9] 08/17/2024 Breakthrough seizure (HCC) [G40.919] 08/17/2024 Obesity, Class I, BMI 30-34.9 [E66.811] 08/18/2024 DNR (do not resuscitate) discussion [Z71.89] 08/18/2024 Goals of care, counseling/discussion [Z71.89] 08/18/2024 Encounter Status:Closed by SILVIA ROGERS on 11/10/24 Normal [facility] Absolute neutrophil countOrd ered By: Todd Velasquez on 09-29-2024 Neutrophils (Bld) [#/Vol] 3.3 10*3/uL 2.0-7.7 [facility] Albumin to globulin ratioOrd ered By: Todd Velasquez on 09-29-2024 Albumin/Globulin [Mass ratio] 0.7 {ratio} Low 0.9-2.4 [facility] Basophil percentageOrdered B y: Todd Velasquez on 09-29-2024 Basophils/100 WBC (Bld) 0.7 % 0-1 [facility] Bilirubin, totalOrdered By: Todd Velasquez on 09-29-2024 Bilirubin [Mass/Vol] 0.30 mg/dL 0.20-1.00 [facility] Comment on above: For patients on eltr ombopag therapy, use of Dimension [place]ura TBIL is not recommended. Blood urea nitrogen (BUN)/cr eatinine ratioOrdered By: Todd Velasquez on 09-29-2024 Urea nitrogen/Creatinine [Mass ratio] 23.9 mg/mg High 10-20 [facility] CBC W/Diff, Automatedon 09-14 Absolute Lymph 2.51 X10 3/uL Normal 0.83-4.51 [facility] Comment on above: Order Comment: 211-2 Performed By: #### L 100.0100, L501.8100, L501.7700, L500.4050 #### [facility] [address] [place], [address] Absolute Neut 3.3 X10 3/uL Normal 2.0-7.7 [facility] Comment on above: Order Comment: 211-2 Performed By: #### L 100.0100, L501.8100, L501.7700, L500.4050 #### [facility] [address] [place], [address] Basophils/100 WBC (Bld) 0.7 % Normal 0-1 [facility] Comment on above: Order Comment: 211-2 Performed By: #### L 100.0100, L501.8100, L501.7700, L500.4050 #### [facility] [address] [place], [address] Eosinophils/100 WBC (Bld) 1.8 % Normal 0-5 [facility] Comment on above: Order Comment: 211-2 Performed By: #### L 100.0100, L501.8100, L501.7700, L500.4050 #### [facility] [address] [place], [address] Erythrocyte distribution width (RBC) [Ratio] 13.7 % Normal 11.6-14.6 [facility] Comment on above: Order Comment: 211-2 Performed By: #### L 100.0100, L501.8100, L501.7700, L500.4050 #### [facility] [address] [place], [address] Hematocrit (Bld) [Volume fraction] 34.3 % Low 37-47 [facility] Comment on above: Order Comment: 211-2 Performed By: #### L 100.0100, L501.8100, L501.7700, L500.4050 #### [facility] [address] [place], [address] Hemoglobin (Bld) [Mass/Vol] 10.7 g/dL Low 12.0-15.0 [facility] Comment on above: Order Comment: 211-2 Performed By: #### L 100.0100, L501.8100, L501.7700, L500.4050 #### [facility] [address] [place], [address] IG% 0.300 Normal 0.0-0.9 [facility] Comment on above: Order Comment: 211-2 Result Comment: IG% - Immature Granulocytes (promyelocytes, myelocytes and metamyelocytes) > 1% indicates that a LEFT SHIFT is Present. Performed By: #### L 100.0100, L501.8100, L501.7700, L500.4050 #### [facility] [address] [place], [address] Lymphocytes/100 WBC (Bld) 37.1 % Normal 19-41 [facility] Comment on above: Order Comment: 211-2 Performed By: #### L 100.0100, L501.8100, L501.7700, L500.4050 #### [facility] [address] [place], [address] MCH (RBC) [Entitic mass] 29.2 pg Normal 27.0-32.0 [facility] Comment on above: Order Comment: 211-2 Performed By: #### L 100.0100, L501.8100, L501.7700, L500.4050 #### [facility] [address] [place], [address] MCHC (RBC) [Mass/Vol] 31.2 g/dL Low 32-36 [facility] Comment on above: Order Comment: 211-2 Performed By: #### L 100.0100, L501.8100, L501.7700, L500.4050 #### [facility] [address] [place], [address] MCV (RBC) [Entitic vol] 93.7 fL Normal 81-99 [facility] Comment on above: Order Comment: 211-2 Performed By: #### L 100.0100, L501.8100, L501.7700, L500.4050 #### [facility] [address] [place], [address] Monocytes/100 WBC (Bld) 12.1 % High 0-10 [facility] Comment on above: Order Comment: 211-2 Performed By: #### L 100.0100, L501.8100, L501.7700, L500.4050 #### [facility] [address] [place], [address] Neutrophils/100 WBC (Bld) 48.0 % Normal 47-70 [facility] Comment on above: Order Comment: 211-2 Performed By: #### L 100.0100, L501.8100, L501.7700, L500.4050 #### [facility] [address] [place], [address] Nucleated RBC (Bld) [#/Vol] 0 10*3/uL Normal 0-5 [facility] Comment on above: Order Comment: 211-2 Performed By: #### L 100.0100, L501.8100, L501.7700, L500.4050 #### [facility] [address] [place], [address] Platelet mean volume (Bld) [Entitic vol] 11.8 fL Normal 6.2-12.0 [facility] Comment on above: Order Comment: 211-2 Performed By: #### L 100.0100, L501.8100, L501.7700, L500.4050 #### [facility] [address] [place], [address] Platelets (Bld) [#/Vol] 195 10*3/uL Normal 150-450 [facility] Comment on above: Order Comment: 211-2 Performed By: #### L 100.0100, L501.8100, L501.7700, L500.4050 #### [facility] [address] [place], [address] RBC (Bld) [#/Vol] 3.66 10*6/uL Low 4.2-5.4 [facility] Comment on above: Order Comment: 211-2 Performed By: #### L 100.0100, L501.8100, L501.7700, L500.4050 #### [facility] [address] [place], [address] RDW SD 46.8 fl High 35.1-43.9 [facility] Comment on above: Order Comment: -2 Performed By: #### L 100.0100, L501.8100, L501.7700, L500.4050 #### [facility] [address] [place], [address] WBC (Bld) [#/Vol] 6.8 10*3/uL Normal 4.4-11.0 [facility] Comment on above: Order Comment: -2 Performed By: #### L 100.0100, L501.8100, L501.7700, L500.4050 #### [facility] [address] [place], [address] Carbon dioxide measurementOr dered By: Todd Velasquez on 09-29-2024 CO2 [Moles/Vol] 24.0 mmol/L 21.0-32.0 [facility] Chloride measurementOrdered By: Todd Velasquez on 09-29-2024 Chloride [Moles/Vol] 110 mmol/L High 98-107 [facility] Comprehensive Metabolic Prof ilon 09-29-2024 Albumin [Mass/Vol] 2.9 g/dL Low 3.2-5.0 [facility] Comment on above: Order Comment: -2 Performed By: #### L 100.0100, L501.8100, L501.7700, L500.4050 #### [facility] [address] [place], [address] Albumin/Globulin [Mass ratio] 0.7 {ratio} Low 0.9-2.4 [facility] Comment on above: Order Comment: -2 Performed By: #### L 100.0100, L501.8100, L501.7700, L500.4050 #### [facility] [address] [place], [address] ALK P 114 U/L Normal 45-117 [facility] Comment on above: Order Comment: 211-2 Performed By: #### L 100.0100, L501.8100, L501.7700, L500.4050 #### [facility] [address] [place], [address] ALT [Catalytic activity/Vol] 18 U/L Normal 13-56 [facility] Comment on above: Order Comment: 211-2 Performed By: #### L 100.0100, L501.8100, L501.7700, L500.4050 #### [facility] [address] [place], [address] AST [Catalytic activity/Vol] 24 U/L Normal 15-37 [facility] Comment on above: Order Comment: 211-2 Performed By: #### L 100.0100, L501.8100, L501.7700, L500.4050 #### [facility] [address] [place], [address] Bilirubin [Mass/Vol] 0.30 mg/dL Normal 0.20-1.00 [facility] Comment on above: Order Comment: -2 Result Comment: For patients on eltrombopag therapy, use of Dimension [place]ura TBIL is not recommended. Performed By: #### L 100.0100, L501.8100, L501.7700, L500.4050 #### [facility] [address] [place], [address] BUN/CRE 23.9 RATIO High 10-20 [facility] Comment on above: Order Comment: 211-2 Performed By: #### L 100.0100, L501.8100, L501.7700, L500.4050 #### [facility] [address] [place], [address] CA,Total 9.2 mg/dL Normal 8.5-10.1 [facility] Comment on above: Order Comment: Performed By: #### L 100.0100, L501.8100, L501.7700, L500.4050 #### [facility] [address] [place], [address] Chloride [Moles/Vol] 110 mmol/L High 98-107 [facility] Comment on above: Order Comment: Performed By: #### L 100.0100, L501.8100, L501.7700, L500.4050 #### [facility] [address] [place], [address] CO2 [Moles/Vol] 24.0 mmol/L Normal 21.0-32.0 [facility] Comment on above: Order Comment: Performed By: #### L 100.0100, L501.8100, L501.7700, L500.4050 #### [facility] [address] [place], [address] Creatinine [Mass/Vol] 0.80 mg/dL Normal 0.55-1.02 [facility] Comment on above: Order Comment: Result Comment: The validity of the calculated GFR GFRAA in patients over 70 years has not been determined. Clinical correlation is essential. Performed By: #### L 100.0100, L501.8100, L501.7700, L500.4050 #### [facility] [address] [place], [address] EST GFR - AA 90 mL/min Normal >60 [facility] Comment on above: Order Comment: Result Comment: Afri can Kyrgyz GFR Calc Performed By: #### L 100.0100, L501.8100, L501.7700, L500.4050 #### [facility] [address] [place], [address] GAP 6 Normal 5-15 [facility] Comment on above: Order Comment: 211-2 Performed By: #### L 100.0100, L501.8100, L501.7700, L500.4050 #### [facility] [address] [place], [address] GFR/1.73 sq M.predicted among non-blacks MDRD (S/P/Bld) [Vol rate/Area] 74 mL/min/{1.73_m2} Normal >60 [facility] Comment on above: Order Comment: Result Comment: Non- GFR Calc Performed By: #### L 100.0100, L501.8100, L501.7700, L500.4050 #### [facility] [address] [place], [address] Globulin (S) [Mass/Vol] 4.0 g/dL Normal 2.2-4.2 [facility] Comment on above: Order Comment: -2 Performed By: #### L 100.0100, L501.8100, L501.7700, L500.4050 #### [facility] [address] [place], [address] Glucose [Mass/Vol] 91 mg/dL Normal 74-106 [facility] Comment on above: Order Comment: -2 Performed By: #### L 100.0100, L501.8100, L501.7700, L500.4050 #### [facility] [address] [place], [address] Potassium [Moles/Vol] 4.3 mmol/L Normal 3.5-5.1 [facility] Comment on above: Order Comment: -2 Performed By: #### L 100.0100, L501.8100, L501.7700, L500.4050 #### [facility] [address] [place], [address] Sodium [Moles/Vol] 140 mmol/L Normal 136-145 [facility] Comment on above: Order Comment: 211-2 Performed By: #### L 100.0100, L501.8100, L501.7700, L500.4050 #### [facility] [address] [place], [address] T PROT 6.9 g/dL Normal 6.4-8.2 [facility] Comment on above: Order Comment: 211-2 Performed By: #### L 100.0100, L501.8100, L501.7700, L500.4050 #### [facility] [address] [place], [address] Urea nitrogen [Mass/Vol] 19 mg/dL High 7-18 [facility] Comment on above: Order Comment: 211-2 Performed By: #### L 100.0100, L501.8100, L501.7700, L500.4050 #### [facility] [address] [place], [address] Eosinophil percentageOrdered By: Todd Velasquez on 09-29-2024 Eosinophils/100 WBC (Bld) 1.8 % 0-5 [facility] Erythrocyte distribution wid th (RBC) [Ratio]Ordered By: Todd Velasquez on 09-29-2024 Erythrocyte distribution width (RBC) [Entitic vol] 46.8 fL High 35.1-43.9 [facility] Erythrocyte distribution wid th ratioOrdered By: Todd Velasquez on 09-29-2024 Erythrocyte distribution width (RBC) [Ratio] 13.7 % 11.6-14.6 [facility] Estimated glomerular filtrat ion rate (GFR) AmericanOrdered By: Todd Velasquez on 09-29-2024 Estimated GFR (MDRD) Amer 90 mL/min >60 [facility] Comment on above: GFR Calc Glomerular filtration rate ( GFR) estimationOrdered By: Todd Velasquez on 09-29-2024 Estimated GFR (MDRD) Non-Af Amer 74 mL/min >60 [facility] Comment on above: Non- GFR Calc Glucose measurementOrdered B y: Todd Velasquez on 09-29-2024 Glucose [Mass/Vol] 91 mg/dL 74-106 [facility] Hematocrit Auto (Bld) [Volum e fraction]Ordered By: Todd Velasquez on 09-29-2024 Hematocrit (Bld) [Volume fraction] 34.3 % Low 37-47 [facility] Hemoglobin measurementOrdere d By: Todd Velasquez on 09-29-2024 Hemoglobin (Bld) [Mass/Vol] 10.7 g/dL Low 12.0-15.0 [facility] Immature granulocytes/100 WB C Auto (Bld)Ordered By: Todd Velasquez on 09-29-2024 Immature granulocytes/100 WBC (Bld) 0.300 % 0.0-0.9 [facility] Comment on above: IG% - Immature Granu locytes (promyelocytes, myelocytes and metamyelocytes) > 1% indicates that a LEFT SHIFT is Present. Laboratory - Chemistry and C hemistry - challengeOrdered By: Todd Velasquez on 09-29-2024 AST [Catalytic activity/Vol] 24 U/L 15-37 [facility] Lymphocytes Auto (Unsp spec) [#/Vol]Ordered By: Todd Velasquez on 09-29-2024 Lymphocytes (Bld) [#/Vol] 2.51 10*3/uL 0.83-4.51 [facility] Lymphocytes/100 WBC Auto (Un sp spec)Ordered By: Todd Velasquez on 09-29-2024 Lymphocytes/100 WBC (Bld) 37.1 % 19-41 [facility] MCV (mean corpuscular volume ) determinationOrdered By: Todd Velasquez on 09-29-2024 MCV (RBC) [Entitic vol] 93.7 fL 81-99 [facility] Mean corpuscular hemoglobin (MCH) determinationOrdered By: Todd Velasquez on 09-29-2024 MCH (RBC) [Entitic mass] 29.2 pg 27.0-32.0 [facility] Mean corpuscular hemoglobin concentration (MCHC) determinationOrdered By: Todd Velasquez on 09-29-2024 MCHC (RBC) [Mass/Vol] 31.2 g/dL Low 32-36 [facility] Mean platelet volume determi nationOrdered By: Todd Velasquez on 09-29-2024 Platelet mean volume (Bld) [Entitic vol] 11.8 fL 6.2-12.0 [facility] Monocyte percentageOrdered B y: Todd Velasquez on 09-29-2024 Monocytes/100 WBC (Bld) 12.1 % High 0-10 [facility] Neutrophil percentageOrdered By: Todd Velasquez on 09-29-2024 Neutrophils/100 WBC (Bld) 48.0 % 47-70 [facility] Nucleated red blood cell per centageOrdered By: Todd Velasquez on 09-29-2024 Nucleated RBC/100 WBC (Bld) [Ratio] 0 % 0-5 [facility] Phenytoin (Dilantin) Levelon 09-29-2024 PHENYTOIN 14.0 mL Normal 10.0-20.0 [facility] Comment on above: Order Comment: 211-5 2521 Performed By: #### L 100.0100, L501.8100, L501.7700, L500.4050 #### [facility] [address] [place], [address] Phenytoin [Mass/Vol]Ordered By: Todd Velasquez on 09-29-2024 Phenytoin (Dilantin) Level 14.0 mL 10.0-20.0 [facility] Platelet countOrdered By: Whitley on 09-29-2024 Platelets (Bld) [#/Vol] 195 10*3/uL 150-450 [facility] Potassium measurementOrdered By: Todd Velasquez on 09-29-2024 Potassium [Moles/Vol] 4.3 mmol/L 3.5-5.1 [facility] RBC Auto (Bld) [#/Vol]Ordere d By: Todd Velasquez on 09-29-2024 RBC (Bld) [#/Vol] 3.66 10*6/uL Low 4.2-5.4 [facility] Serum anion gap measurementO rdered By: Todd Velasquez on 09-29-2024 Anion gap [Moles/Vol] 6 mmol/L 5-15 [facility] Serum globulin measurementOr dered By: Todd Velasquez on 09-29-2024 Globulin (S) [Mass/Vol] 4.0 g/dL 2.2-4.2 [facility] Serum or plasma alanine ignacio otransferase (ALT) measurementOrdered By: Todd Velasquez on 09-29-2024 ALT [Catalytic activity/Vol] 18 U/L 13-56 [facility] Serum or plasma albumin jacob urement (mass/volume)Ordered By: Todd Velasquez on 09-29-2024 Albumin [Mass/Vol] 2.9 g/dL Low 3.2-5.0 [facility] Serum or plasma alkaline phillip sphatase measurementOrdered By: Todd Velasquez on 09-29-2024 ALP [Catalytic activity/Vol] 114 U/L 45-117 [facility] Serum or plasma calcium jacob urement (mass/volume)Ordered By: Todd Velasquez on 09-29-2024 Calcium [Mass/Vol] 9.2 mg/dL 8.5-10.1 [facility] Serum or plasma creatinine m easurement (mass/volume)Ordered By: Todd Velasquez on 09-29-2024 Creatinine [Mass/Vol] 0.80 mg/dL 0.55-1.02 [facility] Comment on above: The validity of the calculated GFR & GFRAA in patients over 70 years has not been determined. Clinical correlation is essential. Serum or plasma urea nitroge n measurement (mass/volume)Ordered By: Todd Velasquez on 09-29-2024 Urea nitrogen [Mass/Vol] 19 mg/dL High 7-18 [facility] Sodium levelOrdered By: Todd Velasquez on 09-29-2024 Sodium [Moles/Vol] 140 mmol/L 136-145 [facility] Total proteinOrdered By: Ignacia Velasquez on 09-29-2024 Protein [Mass/Vol] 6.9 g/dL 6.4-8.2 [facility] Valproate levelOrdered By: Barbara Velasquez on 09-29-2024 Valproic Acid (Depakene) Level 87 ug/mL 50-100 [facility] Valproic Acid (Depakene) Lev maribell 09-29-2024 VALPROIC ACID 87 ug/mL Normal 50-100 [facility] Comment on above: Order Comment: 07 Performed By: #### L 100.0100, L501.8100, L501.7700, L500.4050 #### [facility] [address] [place], [place], [address] White blood cell (WBC) count Ordered By: Todd Velasquez on 09-29-2024 WBC (Bld) [#/Vol] 6.8 10*3/uL 4.4-11.0 [facility] Ammoniaon 09-26-2024 Ammonia (P) [Moles/Vol] 41.0 umol/L High 11-32 [facility] Comment on above: Order Comment: 729 Performed By: #### L 100.0100, L501.8100, L501.7700, L500.4050 #### [facility] [address] [place], [place], [address] CNPNon 09-26-2024 CNPN Telephone (NE50MN) -------- KATHERYN CHINO ([id number]) 1945 F Date Time Provider Department 09/26/24 JAYANT JIMENEZ NE50MN During your visit today, we recorded the following information about you: Sherrell Bojorquez RN 09/26/2024 1:14 PM Signed Per patient's nurseKatia - recent labs are trough No ETH level completed Current ASMs: PHT 100 mg BID VPA 750 mg TID ETH 250 mg BID Forwarded to [address] for review/recommendation Sherrell Bojorquez RN Per MALCOLM of 09/24/2024 w/Dr. Jimenez The doses listed on facility paperwork are different than what was listed on discharge summary at [facility]. Called the facility and confirmed the following doses Dilantin 100 mg twice daily (since 09/24/2024-dose reduced due to minimally elevated serum levels) Depakote 750 mg 3 times daily (since 09/08/2024-dose reduced due to elevated serum levels) Recent Asm levels show VPA elevated at 120 (09/05/2024) and PHT normal on 09/05 and minimally elevated on 09/19/2024. 09/24/2024: We discussed the negative effects of long-term Dilantin therapy including worsening cerebellar function, risk of osteoporosis. Patient is wheelchair-bound and lives at a facility with constant supervision with no recent falls. We will keep the discussion open about switching Dilantin at future visits. Medication doses were confirmed with the facility (I spoke to the nurse taking care of the patient) which shows recent decrease in Dilantin and Depakote doses following serum levels. For now, we will recheck medication levels and ammonia levels to evaluate for somnolence. Further dose adjustments to be based on ASM levels. EPILEPSY CLASSIFICATION Generalized Epilepsy Seizures: 1. Dialeptic Seizure 2. Generalized Tonic-Clonic Seizure Associated Conditions: - Neurological (Cerebellar ataxia) PLAN: Continue Dilantin 100 mg twice daily, Depakote 750 mg 3 times daily, ethosuximide 250 mg twice daily Recheck serum ASM levels and ammonia level DEXA scan for evaluation of osteoporosis due to long-term Dilantin use Follow-up in 3 months Future options: Switch Dilantin to Vimpat, zonisamide. Artis Hamilton APRN.CNP 09/26/2024 4:20 PM Signed Levels reviewed, VPA still mildly elevated- would decrease dose to 500 mg TID. Can continue other doses unchanged Artis Hamilton APRN.Sherrell Don RN 09/26/2024 4:36 PM Signed Spoke with Taryn patient's nurse - provided medication recommendations - she verbalizes understanding via teachback Sherrell Bojorquez RN Allergies As of Date: 09/26/2024 (No Known Allergies) Date Reviewed: 09/24/2024 Reviewed by: Shalini Montana LPN - Fully Assessed Reason for Visit: Outside Lab Results [753] [facility] Diagnosis:Intractable epilepsy without status epilepticus, unspecified epilepsy type ([facility]) [G40.919] Order(s):valproic acid (DEPAKENE) 250 mg/5 mL syrupTake 10 mL by mouth three times a day.Disp: 2700 mLRfl: 1 Prescriptions as of 09/26/2024 - valproic acid (DEPAKENE) 250 mg/5 mL syrup Take 10 mL by mouth three times a day. - docusate sodium (COLACE) 100 mg capsule Take by mouth. - phenytoin chewable (DILANTIN) 50 mg tablet Take 50 mg by mouth daily at bedtime. - potassium chloride (K-TAB) 10 mEq tablet Take 10 mEq by mouth once daily. - ethosuximide (ZARONTIN) 250 mg capsule Take 1 capsule by mouth two times a day. - phenytoin ER (DILANTIN) 100 mg ER capsule Take 1 capsule by mouth three times a day. - furosemide (LASIX) 20 mg tablet Take 1 tablet by mouth every Sunday, Sunday, and Sunday. - escitalopram oxalate (LEXAPRO) 20 mg tablet Take 1 tablet by mouth once daily. - levothyroxine (SYNTHROID) 50 mcg tablet Take 1 tablet by mouth daily at 6 am. - melatonin 3 mg tablet Take 1 tablet by mouth daily at bedtime. - fluticasone (FLONASE) 50 mcg/actuation nasal spray - montelukast (SINGULAIR) 10 mg tablet - magnesium hydroxide 2,400 mg/10 mL susp Take 10 mL by mouth once daily as needed. - senna (SENNA) 8.6 mg tab Take 8.6 mg by mouth twice daily. - bisacodyl (DULCOLAX) 10 mg supp 10 mg by RECTAL route once daily as needed. - sodium phosphate-sodium bisphosphate (FLEET ENEMA) enema 1 Enema by RECTAL route one time only. - Cholecalciferol, Vitamin D3, (VITAMIN D-3) 2,000 unit cap Take by mouth. - Aluminum Hydrox-Magnesium Carb (GAVISCON EXTRA STRENGTH) 254-237.5 mg/5 mL susp Take by mouth. - Light Mineral Oil-Mineral Oil (SOOTHE XP) 1-4.5 % drop Use in both eyes. - dext 70/polycarbophil/peg/NaC l (ARTIFICIAL TEAR SOLUTION OPHTHALMIC) Use in eyes. - guaifenesin/dextromethor tanner (ROBITUSSIN-DM ORAL) Take by mouth. - loratadine (CLARITIN) 10 mg tablet Take 10 mg by mouth once daily. - losartan potassium (LOSARTAN ORAL) Take 25 mg by mouth. - pantoprazole DR (PROTONIX) 40 mg tablet Take 40 mg by mouth once daily. (more content not included)... Normal [facility] Phenytoin (Dilantin) Levelon 09-26-2024 PHENYTOIN 15.4 mL Normal 10.0-20.0 [facility] Comment on above: Order Comment: 729 Performed By: #### L 100.0100, L501.8100, L501.7700, L500.4050 #### [facility] [address] [place], [place], [address] Phenytoin [Mass/Vol]Ordered By: Todd Velasquez on 09-26-2024 Phenytoin (Dilantin) Level 15.4 mL 10.0-20.0 [facility] Valproate levelOrdered By: Barbara Velasquez on 09-26-2024 Valproic Acid (Depakene) Level 112 ug/mL High 50-100 [facility] Valproic Acid (Depakene) Lev maribell 09-26-2024 VALPROIC ACID 112 ug/mL High 50-100 [facility] Comment on above: Order Comment: 729 Performed By: #### L 100.0100, L501.8100, L501.7700, L500.4050 #### [facility] [address] [place], [address] Venous blood ammonia measure mentOrdered By: Todd Velasquez on 09-26-2024 Ammonia (P) [Moles/Vol] 41.0 umol/L High 11-32 [facility] CNOVon 09-24-2024 CNOV Office Visit (NEEPBA ) -------- KATHERYN CHINO ([id number]) 1945 F Date Time Provider Department 09/24/24 8:00 AM JAYANT JIMENEZ During your visit today, we recorded the following information about you: Pulse Respiration Blood pressure Weight 77/minute 16/minute 132/81 81.6 kg Height 1.6 m Jayant Jimenez MD 09/24/2024 9:02 AM Addendum Summary of the things we discussed today: We will check blood level of your seizure medications as well as Ammonia (needs to be done at [facility]) I will order a bone scan called DEXA to see if you have suffered osteoporosis due to [facility] use of seizure medications. Reduce the morning dose of Depakote. I will call your facility to find out the dose that you are on (our records indicate 1000 mg three times a day- the facility records indicate 750 mg three times a day) Consider switching Dilantin to a newer medication. Options include Vimpat (Lacosamide), Zonisamide (Zonegran). Please call my office if you have more seizures or with any seizure related concerns. Seizure precautions - No driving in the state [facility] until seizure free for 6 months. Please check with local state authorities for state specific driving regulations. - No operating heavy machines - No swimming without supervision or bathing in a bathtub due to risk of drowning in the event of a seizure. Patient may shower. - Avoid unsafe heights, including ladders, due to risk of fall-related injury in the event of a seizure. - Seizure precipitating factors discussed including not taking seizure medications as prescribed, stress, excessive caffeine intake, energy drinks, alcohol, sleep deprivation or any identifiable seizure precipitating factor. Jayant Jimenez MD Associate Staff, Epilepsy [facility] September 24, 2024 Office phone: [phone] BONE MINERAL DENSITY PATIENT INSTRUCTIONS Bone mineral density testing measures the amount of calcium in certain parts of your bones. This information determines how strong your bones are. The test is used to detect osteoporosis, a disease in which the bone's mineral content and density are low, increasing a person's risk of fractures. The lumbar spine (lower back) and the hip are the skeletal sites usually examined. For the test, remember that: 1. You cannot take this test if you are . 2. Eat a normal diet on the day of the test. 3. Take your medications as you normally would. 4. DO NOT take calcium supplements (such as Tums) for 24 hours before the test. 5. On the day of the test, leave valuables (jewelry or credit cards) at home. 6. The test should be performed prior to oral, rectal or IV contrast studies, or at least 7 days after any of these studies. For the test, you may be asked to wear a hospital gown. You will lie on your back, on a padded table, in a comfortable position. Generally, you can resume your usual activities immediately. Jayant Jimenez MD 09/24/2024 11:19 AM Signed [facility] Patient Name: Katheryn RUBI Date of : 1945 INITIAL EPILEPSY CLINIC NOTE 09/24/2024 8:00 AM CHIEF COMPLAINT: New Patient and Epilepsy HISTORY OF PRESENT ILLNESS Ms. Chino is a 79 year old female seen in [facility] for initial consultation. Handedness: Age of onset: Seizure History and Evolution Siezures began at age 46 year old and there are described as absence and GTC seizures. Started on AEDs and seizures continued to occurred. Brother does not recall previous AEDs. She continued with seizures mainly when she has no compliance with AEDs.Seizures got worse after her menstrual period began at age [age] year old. She alaways lived with her mother who helped her with AEDs, however mother 5 years ago, she started to have no compliance with AEDs . [place] and she has more suervison with AEDs now. The lasteiuzres was over a year ago depsite compliance. Based on SNF forms, she is currently on Dilantin 150 mg daily, Depakote 1000 mg tid and Zarontin 250 mg bid. These levels have been adjusted overtime based on AED levels. 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 She had good seizure control for a few years until covid. Hospitaltization in Aug 2024 for a prolonged GTCS at the facility ( brother reports it lasted ~ 25 mins). Admitted to [facility] where Dilantin and Depakote levels were low. Doses were adjusted- PHT 100 mg TID and VPA 1000 mg TID. Zarontin was continued at 250 mg BID. Interval Seizure History The doses listed on facility paperwork are different than what was listed on discharge summary at [facility]. Called the facility and confirmed the following doses (more content not included)... Normal [facility] Phenytoin (Dilantin) Levelon 09-22-2024 PHENYTOIN 21.7 mL High 10.0-20.0 [facility] Comment on above: Order Comment: 211.2 0000 Performed By: #### L 501.8100, L501.7700 #### [facility] [address] [place], [place], [address] Phenytoin [Mass/Vol]Ordered By: Todd Velasquez on 09-22-2024 Phenytoin (Dilantin) Level 21.7 mL High 10.0-20.0 [facility] Kuldip 09-19-2024 DWAYNEN Telephone ([id number]) -------- KATHERYN CHINO ([id number]) 1945 F Date Time Provider Department 09/19/24 JAYANT JIMENEZ NE50MN During your visit today, we recorded the following information about you: buster Alexandra Chau 09/19/2024 4:18 PM Signed [facility] PHONE/FAX: [phone] / [phone] COLLECTION DATE AND TIME: 09/19/2024 - 06:15 Uploaded to [facility] Silvia Rogers RN 09/22/2024 12:09 PM Signed See 09/05/24 phone encounter PHT 21.9 Range 10 - 20 Taking PHT 100 mg BID Silvia Rogers RN Allergies As of Date: 09/19/2024 (No Known Allergies) Date Reviewed: 08/19/2024 Reviewed by: Tj Witt RN - Fully Assessed Reason for Visit: Outside Lab Results [753] Cmt: PHENYTOIN Prescriptions as of 09/22/2024 - valproic acid (DEPAKENE) 250 mg/5 mL syrup Take 20 mL by mouth three times a day. - ethosuximide (ZARONTIN) 250 mg capsule Take 1 capsule by mouth two times a day. - phenytoin ER (DILANTIN) 100 mg ER capsule Take 1 capsule by mouth three times a day. - furosemide (LASIX) 20 mg tablet Take 1 tablet by mouth every Sunday, Sunday, and Sunday. - escitalopram oxalate (LEXAPRO) 20 mg tablet Take 1 tablet by mouth once daily. - levothyroxine (SYNTHROID) 50 mcg tablet Take 1 tablet by mouth daily at 6 am. - melatonin 3 mg tablet Take 1 tablet by mouth daily at bedtime. - fluticasone (FLONASE) 50 mcg/actuation nasal spray - montelukast (SINGULAIR) 10 mg tablet - magnesium hydroxide 2,400 mg/10 mL susp Take 10 mL by mouth once daily as needed. - senna (SENNA) 8.6 mg tab Take 8.6 mg by mouth twice daily. - bisacodyl (DULCOLAX) 10 mg supp 10 mg by RECTAL route once daily as needed. - sodium phosphate-sodium bisphosphate (FLEET ENEMA) enema 1 Enema by RECTAL route one time only. - Cholecalciferol, Vitamin D3, (VITAMIN D-3) 2,000 unit cap Take by mouth. - Aluminum Hydrox-Magnesium Carb (GAVISCON EXTRA STRENGTH) 254-237.5 mg/5 mL susp Take by mouth. - Light Mineral Oil-Mineral Oil (SOOTHE XP) 1-4.5 % drop Use in both eyes. - dext 70/polycarbophil/peg/NaC l (ARTIFICIAL TEAR SOLUTION OPHTHALMIC) Use in eyes. - guaifenesin/dextromethor tanner (ROBITUSSIN-DM ORAL) Take by mouth. - loratadine (CLARITIN) 10 mg tablet Take 10 mg by mouth once daily. - losartan potassium (LOSARTAN ORAL) Take 25 mg by mouth. - pantoprazole DR (PROTONIX) 40 mg tablet Take 40 mg by mouth once daily. - acetaminophen (TYLENOL) 325 mg tablet Take 650 mg by mouth every 6 hours as needed. 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 History of long-term treatment with high-risk m*08/07/2018 Dysarthria [R47.1] 08/07/2018 Nonintractable epilepsy without status epilepti*07/29/2019 Seizure (HCC) [R56.9] 08/17/2024 Breakthrough seizure (HCC) [G40.919] 08/17/2024 Obesity, Class I, BMI 30-34.9 [E66.811] 08/18/2024 DNR (do not resuscitate) discussion [Z71.89] 08/18/2024 Goals of care, counseling/discussion [Z71.89] 08/18/2024 Encounter Status:Closed by SILVIA ROGERS on 09/22/24 Normal [facility] Phenytoin (Dilantin) Levelon 09-19-2024 PHENYTOIN 21.9 mL High 10.0-20.0 [facility] Comment on above: Order Comment: 211.2 0000 Performed By: #### L 501.8100, L501.7700 #### [facility] [address] [place], [address] Phenytoin [Mass/Vol]Ordered By: Todd Velasquez on 09-19-2024 Phenytoin (Dilantin) Level 21.9 mL High 10.0-20.0 [facility] Phenytoin (Dilantin) Levelon 09-17-2024 PHENYTOIN 22.0 mL High 10.0-20.0 [facility] Comment on above: Order Comment: 1940 Performed By: #### L 501.7700 #### [facility] [address] [place], [place], [address] Phenytoin [Mass/Vol]Ordered By: Todd Velasquez on 09-17-2024 Phenytoin (Dilantin) Level 22.0 mL High 10.0-20.0 [facility] Phenytoin (Dilantin) Levelon 09-15-2024 PHENYTOIN 25.1 mL High 10.0-20.0 [facility] Comment on above: Order Comment: 211.2 0000 Performed By: #### L 501.8100, L501.7700 #### [facility] [address] [place], [place], [address] Valproic Acid (Depakene) Lev maribell 09-15-2024 VALPROIC ACID 92 ug/mL Normal 50-100 [facility] Comment on above: Order Comment: 211.2 0000 Performed By: #### L 501.8100, L501.7700 #### [facility] [address] [place], [address] CNPNon 09-05-2024 CNPN Telephone (NE50YM) -------- KATHERYN CHINO ([id number]) 1945 F Date Time Provider Department 09/05/24 JAYANT JIMENEZ NE50MN During your visit today, we recorded the following information about you: Alexandra Sainz 09/05/2024 2:22 PM Signed Form received: From (agency / facility / parent): [facility] certified personal finance counselor (if given): Brea Malloy RN Phone #: [phone] Fax # : [phone] Email: n/a Information requested: Review Labs Collected 09/05/2024 - 05:30 for Valproic Acid and Dilantin and approval for medication dosages Patient of Dr. Jimenez Forwarded to nurse. Also uploaded to [facility]. Sherrell Bojorquez RN 09/05/2024 3:11 PM Signed Called [facility] - left message for nursing staff to contact office MEGA Mondragon Elizabeth, RN 09/05/2024 3:11 PM Signed Patient update per nurse Renae, [facility]: - Last known seizure: 08/17/2024 - labs are Not trough - patient received AM doses of ASMs around 4:30 am - no medication concerns/concern for SE Current ASM dosing confirmed with nursing: PHT ER 100 mg @ 8 am/100 mg @ 2 pm 100 mg + 50 mg chew @ 10 PM VPA 1000 mg @ 6 am/1000 mg @ 11 am/1000 mg @ 9 pm ETH 250 mg BID Facility scheduled to repeat labs in 84 days - will schedule as trough NOV: 09/24/2024 w/Dr. Jimenez Forwarded to [facility] [employer] [place] for review Sherrell Bojorquez RN Per neurology consult 08/17/2024 Plan: -CT head at OSH nothing acute -EEG diffuse moderate slowing -Labs reviewed -Dilantin level was low on admission. Will increase Dilantin to 100 mg TID, check another level as outpatient -Restart Depakote 1000 mg TID which is baseline dose. Depakote level low this admission likely secondary to not starting the medication on admission. -On Ethosuximide 250 mg BID at baseline. Continue the same. -F/U Epilepsy as outpatient. Artis Hamilton APRN.DWAYNE 09/05/2024 4:00 PM Signed Pt can continue current doses. Artis Hamilton APRN.Sherrell Don RN 09/05/2024 4:34 PM Signed Spoke with nurse Renae, [facility] - provided recommendation/she verbalizes understanding. MEGA Mondragon Christina M, RN 09/22/2024 12:09 PM Signed === MEGA Christianson Kelly, APRN.DWAYNE 09/22/2024 3:12 PM Addendum PHT level mildly elevated- if no se's would continue current dose Artis Hamilton APRN.Silvia Willis RN 09/23/2024 5:14 PM Signed Spoke with ADIA Chen at [facility]. Confirmed no side effects and to continue with current PHT doses. April verbalized understanding. MEGA Christianson Yocasta 09/26/2024 12:38 PM Signed VPA labs uploaded Sherrell Bojorquez RN 09/26/2024 1:06 PM Signed See telephone encounter of 09/26/2024 addressing recent lab results Sherrell Bojorquez RN Allergies As of Date: 09/05/2024 (No Known Allergies) Date Reviewed: 08/19/2024 Reviewed by: Tj Witt RN - Fully Assessed Reason for Visit: Forms [913] Cmt: Review results and orders Prescriptions as of 09/26/2024 - docusate sodium (COLACE) 100 mg capsule Take by mouth. - phenytoin chewable (DILANTIN) 50 mg tablet Take 50 mg by mouth daily at bedtime. - potassium chloride (K-TAB) 10 mEq tablet Take 10 mEq by mouth once daily. - valproic acid (DEPAKENE) 250 mg/5 mL syrup Take 20 mL by mouth three times a day. - ethosuximide (ZARONTIN) 250 mg capsule Take 1 capsule by mouth two times a day. - phenytoin ER (DILANTIN) 100 mg ER capsule Take 1 capsule by mouth three times a day. - furosemide (LASIX) 20 mg tablet Take 1 tablet by mouth every Sunday, Sunday, and Sunday. - escitalopram oxalate (LEXAPRO) 20 mg tablet Take 1 tablet by mouth once daily. - levothyroxine (SYNTHROID) 50 mcg tablet Take 1 tablet by mouth daily at 6 am. - melatonin 3 mg tablet Take 1 tablet by mouth daily at bedtime. - fluticasone (FLONASE) 50 mcg/actuation nasal spray - montelukast (SINGULAIR) 10 mg tablet - magnesium hydroxide 2,400 mg/10 mL susp Take 10 mL by mouth once daily as needed. - senna (SENNA) 8.6 mg tab Take 8.6 mg by mouth twice daily. - bisacodyl (DULCOLAX) 10 mg supp 10 mg by RECTAL route once daily as needed. - sodium phosphate-sodium bisphosphate (FLEET ENEMA) enema 1 Enema by RECTAL route one time only. - Cholecalciferol, Vitamin D3, (VITAMIN D-3) 2,000 unit cap Take by mouth. - Aluminum Hydrox-Magnesium Carb (GAVISCON EXTRA STRENGTH) 254-237.5 mg/5 mL susp Take by mouth. - Light Mineral Oil-Mineral Oil (SOOTHE XP) 1-4.5 % drop Use in both eyes. - dext 70/polycarbophil/peg/NaC l (ARTIFICIAL TEAR SOLUTION OPHTHALMIC) Use in eyes. - guaifenesin/dextromethor tanner (ROBITUSSIN-DM ORAL) Take by mouth. - loratadine (CLARITIN) 10 mg tablet Take 10 mg by mouth once daily. - losartan potassium (LOSARTAN ORAL) Take 25 mg by mouth. - pantoprazo (more content not included)... Normal [facility] Phenytoin (Dilantin) Levelon 09-05-2024 PHENYTOIN 15.2 mL Normal 10.0-20.0 [facility] Comment on above: Order Comment: 211.2 0000 Performed By: #### L 501.8100, L501.7700 #### [facility] [address] [place], [address] Valproic Acid (Depakene) Lev maribell 09-05-2024 VALPROIC ACID 120 ug/mL High 50-100 [facility] Comment on above: Order Comment: 211.2 0000 Performed By: #### L 501.8100, L501.7700 #### [facility] [address] [place], [address] Basic Metabolic Profile (BMP )on 08-27-2024 BUN/CRE 22.3 RATIO High 10-20 [facility] Comment on above: Order Comment: 211-2 Performed By: #### L 100.0100, L501.8100, L501.7700, L500.4050 #### [facility] [address] [place], [address] CA,Total 8.8 mg/dL Normal 8.5-10.1 [facility] Comment on above: Order Comment: - Performed By: #### L 100.0100, L501.8100, L501.7700, L500.4050 #### [facility] [address] [place], [address] Chloride [Moles/Vol] 110 mmol/L High 98-107 [facility] Comment on above: Order Comment: - Performed By: #### L 100.0100, L501.8100, L501.7700, L500.4050 #### [facility] [address] [place], [address] CO2 [Moles/Vol] 28.0 mmol/L Normal 21.0-32.0 [facility] Comment on above: Order Comment: - Performed By: #### L 100.0100, L501.8100, L501.7700, L500.4050 #### [facility] [address] [place], [address] Creatinine [Mass/Vol] 0.67 mg/dL Normal 0.55-1.02 [facility] Comment on above: Order Comment: Result Comment: The validity of the calculated GFR GFRAA in patients over 70 years has not been determined. Clinical correlation is essential. Performed By: #### L 100.0100, L501.8100, L501.7700, L500.4050 #### [facility] [address] [place], [address] EST GFR - AA 109 mL/min Normal >60 [facility] Comment on above: Order Comment: Result Comment: Afri can Kyr[place]z GFR Calc Performed By: #### L 100.0100, L501.8100, L501.7700, L500.4050 #### [facility] [address] [place], [address] GAP 5 Normal 5-15 [facility] Comment on above: Order Comment: 211-2 Performed By: #### L 100.0100, L501.8100, L501.7700, L500.4050 #### [facility] [address] [place], [address] GFR/1.73 sq M.predicted among non-blacks MDRD (S/P/Bld) [Vol rate/Area] 90 mL/min/{1.73_m2} Normal >60 [facility] Comment on above: Order Comment: 211-2 Result Comment: Non- GFR Calc Performed By: #### L 100.0100, L501.8100, L501.7700, L500.4050 #### [facility] [address] [place], [address] Glucose [Mass/Vol] 88 mg/dL Normal 74-106 [facility] Comment on above: Order Comment: 211-2 Performed By: #### L 100.0100, L501.8100, L501.7700, L500.4050 #### [facility] [address] [place], [address] Potassium [Moles/Vol] 4.3 mmol/L Normal 3.5-5.1 [facility] Comment on above: Order Comment: 211-2 Performed By: #### L 100.0100, L501.8100, L501.7700, L500.4050 #### [facility] [address] [place], [address] Sodium [Moles/Vol] 142 mmol/L Normal 136-145 [facility] Comment on above: Order Comment: 211-2 Performed By: #### L 100.0100, L501.8100, L501.7700, L500.4050 #### [facility] [address] [place], [address] Urea nitrogen [Mass/Vol] 15 mg/dL Normal 7-18 [facility] Comment on above: Order Comment: 211-2 Performed By: #### L 100.0100, L501.8100, L501.7700, L500.4050 #### [facility] [address] [place], [address] CBC-Complete Blood Cnt No Di ffon 08-27-2024 Erythrocyte distribution width (RBC) [Ratio] 13.7 % Normal 11.6-14.6 [facility] Comment on above: Order Comment: 211-2 Performed By: #### L 100.0100, L501.8100, L501.7700, L500.4050 #### [facility] [address] [place], [address] Hematocrit (Bld) [Volume fraction] 36.7 % Low 37-47 [facility] Comment on above: Order Comment: 211-2 Performed By: #### L 100.0100, L501.8100, L501.7700, L500.4050 #### [facility] [address] [place], [address] Hemoglobin (Bld) [Mass/Vol] 11.7 g/dL Low 12.0-15.0 [facility] Comment on above: Order Comment: 211-2 Performed By: #### L 100.0100, L501.8100, L501.7700, L500.4050 #### [facility] [address] [place], [address] MCH (RBC) [Entitic mass] 29.7 pg Normal 27.0-32.0 [facility] Comment on above: Order Comment: 211-2 Performed By: #### L 100.0100, L501.8100, L501.7700, L500.4050 #### [facility] [address] [place], [address] MCHC (RBC) [Mass/Vol] 31.9 g/dL Low 32-36 [facility] Comment on above: Order Comment: 211-2 Performed By: #### L 100.0100, L501.8100, L501.7700, L500.4050 #### [facility] [address] [place], [address] MCV (RBC) [Entitic vol] 93.1 fL Normal 81-99 [facility] Comment on above: Order Comment: 211-2 Performed By: #### L 100.0100, L501.8100, L501.7700, L500.4050 #### [facility] [address] [place], [address] Platelet mean volume (Bld) [Entitic vol] 12.4 fL High 6.2-12.0 [facility] Comment on above: Order Comment: 211-2 Performed By: #### L 100.0100, L501.8100, L501.7700, L500.4050 #### [facility] [address] [place], [address] Platelets (Bld) [#/Vol] 181 10*3/uL Normal 150-450 [facility] Comment on above: Order Comment: 211-2 Performed By: #### L 100.0100, L501.8100, L501.7700, L500.4050 #### [facility] [address] [place], [address] RBC (Bld) [#/Vol] 3.94 10*6/uL Low 4.2-5.4 [facility] Comment on above: Order Comment: 211-2 Performed By: #### L 100.0100, L501.8100, L501.7700, L500.4050 #### [facility] [address] [place], [address] RDW SD 46.8 fl High 35.1-43.9 [facility] Comment on above: Order Comment: 211-2 Performed By: #### L 100.0100, L501.8100, L501.7700, L500.4050 #### [facility] [address] [place], [address] WBC (Bld) [#/Vol] 6.6 10*3/uL Normal 4.4-11.0 [facility] Comment on above: Order Comment: 211-2 Performed By: #### L 100.0100, L501.8100, L501.7700, L500.4050 #### [facility] [address] [place], [address] CNPNon 08-27-2024 CNPN Telephone (NE50MN) -------- KATHERYN CHINO ([id number]) 1945 F Date Time Provider Department 08/27/24 JAYANT JIMENEZ NE50MN During your visit today, we recorded the following information about you: Mildred Mendez 08/27/2024 3:31 PM Signed OUTSIDE LAB REPORT FACILITY NAME [facility] PHONE/FAX COLLECTION DATE AND TIME: 08/26/24 0455 Uploaded to [facility] Pt scheduled for N/C w/ Sandra Duncan RN 08/28/2024 4:09 PM Signed VPA: 08/27/2024 at 04:55 104: (? to 100) VAP 1000 mg: TID (was increased from 750 mg during recent hospitalization). Previous level ws 94 on 08/06/2024 ======== 08/17/2024 to 08/20/2024 [facility] ======== was patient of Dr. Pereira's last seen 09/01/[address] Jimenez on 09/24/2024: new consult ========= Call placed to [facility] [phone] Galla's number given to call back Sandra Casey RN Franchesca Arana 08/29/2024 10:26 AM Signed Mima of [facility] returning Nurse call. Please call [phone] Sandra Casey RN 08/29/2024 2:04 PM Signed Spoke with Mima no further seizures to report and no side effect or medication issues to report. She is doing fine at this time. routed for review MEGA Dhillon Kelly, APRN.DWAYNE 08/29/2024 2:26 PM Signed Level reviewed - pt should continue current dose Artis Hamilton APRN.Silvia Willis RN 08/29/2024 3:21 PM Signed Spoke with nurse Kendrick at facility. Informed to continue with current asm dose. Silvia Rogers RN Allergies As of Date: 08/27/2024 (No Known Allergies) Date Reviewed: 08/19/2024 Reviewed by: Tj Witt RN - Fully Assessed Reason for Visit: Outside Labs Results [437] Cmt: VPA Prescriptions as of 08/29/2024 - valproic acid (DEPAKENE) 250 mg/5 mL syrup Take 20 mL by mouth three times a day. - ethosuximide (ZARONTIN) 250 mg capsule Take 1 capsule by mouth two times a day. - phenytoin ER (DILANTIN) 100 mg ER capsule Take 1 capsule by mouth three times a day. - furosemide (LASIX) 20 mg tablet Take 1 tablet by mouth every Sunday, Sunday, and Sunday. - escitalopram oxalate (LEXAPRO) 20 mg tablet Take 1 tablet by mouth once daily. - levothyroxine (SYNTHROID) 50 mcg tablet Take 1 tablet by mouth daily at 6 am. - melatonin 3 mg tablet Take 1 tablet by mouth daily at bedtime. - fluticasone (FLONASE) 50 mcg/actuation nasal spray - montelukast (SINGULAIR) 10 mg tablet - magnesium hydroxide 2,400 mg/10 mL susp Take 10 mL by mouth once daily as needed. - senna (SENNA) 8.6 mg tab Take 8.6 mg by mouth twice daily. - bisacodyl (DULCOLAX) 10 mg supp 10 mg by RECTAL route once daily as needed. - sodium phosphate-sodium bisphosphate (FLEET ENEMA) enema 1 Enema by RECTAL route one time only. - Cholecalciferol, Vitamin D3, (VITAMIN D-3) 2,000 unit cap Take by mouth. - Aluminum Hydrox-Magnesium Carb (GAVISCON EXTRA STRENGTH) 254-237.5 mg/5 mL susp Take by mouth. - Light Mineral Oil-Mineral Oil (SOOTHE XP) 1-4.5 % drop Use in both eyes. - dext 70/polycarbophil/peg/NaC l (ARTIFICIAL TEAR SOLUTION OPHTHALMIC) Use in eyes. - guaifenesin/dextromethor tanner (ROBITUSSIN-DM ORAL) Take by mouth. - loratadine (CLARITIN) 10 mg tablet Take 10 mg by mouth once daily. - losartan potassium (LOSARTAN ORAL) Take 25 mg by mouth. - pantoprazole DR (PROTONIX) 40 mg tablet Take 40 mg by mouth once daily. - acetaminophen (TYLENOL) 325 mg tablet Take 650 mg by mouth every 6 hours as needed. Problem List As Of Date 08/27/2024 Noted Resolved Ataxia [R27.0] 08/07/2018 Intractable generalized idiopathic epilepsy wit*08/07/2018 History of long-term treatment with high-risk m*08/07/2018 Dysarthria [R47.1] 08/07/2018 Nonintractable epilepsy without status epilepti*07/29/2019 Seizure (HCC) [R56.9] 08/17/2024 Breakthrough seizure (HCC) [G40.919] 08/17/2024 Obesity, Class I, BMI 30-34.9 [E66.811] 08/18/2024 DNR (do not resuscitate) discussion [Z71.89] 08/18/2024 Goals of care, counseling/discussion [Z71.89] 08/18/2024 Encounter Status:Closed by SILVIA ROGERS on 08/29/24 Normal [facility] Phenytoin (Dilantin) Levelon 08-27-2024 PHENYTOIN 9.8 mL Low 10.0-20.0 [facility] Comment on above: Order Comment: 211-2 Performed By: #### L 100.0100, L501.8100, L501.7700, L500.4050 #### [facility] [address] [place], [address] Valproic Acid (Depakene) Lev maribell 08-27-2024 VALPROIC ACID 104 ug/mL High 50-100 [facility] Comment on above: Order Comment: 211-2 Performed By: #### L 100.0100, L501.8100, L501.7700, L500.4050 #### [facility] [address] [place], [address] CNDSon 08-20-2024 [facility] HNO ID: [id number] Author: JUAN JOSE HENDERSON DO Service: Hospital Medicine Author Type: Physician Type: Discharge Summary Filed: 08/20/2024 11:22 Note Text: DISCHARGE SUMMARY PATIENT NAME: Katheryn Chino Code Status: DNR-CCA, DNI Highest Readmission Risk Score: 13 The 30 day readmissions risk score is derived from an internally validated risk model which evaluates patient level characteristics, utilization history, medication orders and lab results up until the day of discharge. Patients with a score of 40 or above are considered highest risk for readmission. Specific patient level drivers will be listed at the bottom of the summary. Admission Information Admission Information ADMIT DATE: 08/17/2024 DISCHARGE DATE: 08/20/2024 MY DOCTORS AND MEDICAL TEAM: My Main Hospital Doctor: Juan Jose Henderson DO Primary Care Provider: Orville Mendoza DO My Medical Team Members: Treatment Team: Attending Provider: Juan Jose Henderson DO Primary Service: SHELBY RODRIGUEZ MY CONDITION AT DISCHARGE: Stable REASON I WAS IN THE HOSPITAL: Seizure, moderate metabolic encephalopathy SUMMARY OF WHAT HAPPENED WHILE I WAS IN THE HOSPITAL: Patient is a pleasant 79-year-old female who presented from nursing facility due to altered mental status/seizure like event. She was seen by neurology team and her seizure medications were modified. She was seen by physical therapy and felt to be at her baseline. She will be discharged back to her facility for further care. OTHER PROBLEMS/DIAGNOSIS: Principal Problem: Breakthrough seizure (HCC) Active Problems: Seizure (HCC) Obesity, Class I, BMI 30-34.9 DNR (do not resuscitate) discussion Goals of care, counseling/discussion Resolved Problems: * No resolved hospital problems. * OPERATIONS PERFORMED WHILE IN THE HOSPITAL: None IMPORTANT TEST/PROCEDURES: CT brain EEG TEST RESULTS NOT AVAILABLE AT THIS TIME: No pending results Discharge Disposition Discharge Disposition: Intermediate Facility - Greater than 30 Days Diet Instructions Resume your pre-hospital diet Call Your Doctor If You have a severe headache You have lightheadedness, fainting, or confusion You have persistent nausea/vomiting over 24 hours You have persistent or heavy bleeding You have swollen glands or cold and clammy skin Your temperature is greater than 101F Follow Up Appointments Follow-Up Appointment When: In 1 week Patient/Parents to call for appointment?: Yes Orville Mendoza DO [phone] [place] [phone] PCP Requested Referral Follow-Up Appointment Follow-up hospitalization With: Your neurologist When: In 3 weeks Patient/Parents to call for appointment?: Yes Additional Provider to Provider Information: Treatment Team: Attending Provider: Juan Jose Henderson DO Primary Service: SHELBY RODRIGUEZ FOLLOW-UP APPOINTMENTS ALREAD[facility] SCHEDULED WITH [facility] PROVID[facility]: No future appointments. ALLERGIES No Known Allergies DISCHARGE MEDICATION: Medication List START taking these medications escitalopram oxalate 20 mg tablet Commonly known as: LEXAPRO Take 1 tablet by mouth once daily. furosemide 20 mg tablet Commonly known as: LASIX Take 1 tablet by mouth every Sunday, Sunday, and Sunday. levothyroxine 50 mcg tablet Commonly known as: SYNTHROID Take 1 tablet by mouth daily at 6 am. melatonin 3 mg tablet Take 1 tablet by mouth daily at bedtime. CHANGE how you take these medications ethosuximide 250 mg capsule Commonly known as: ZARONTIN Take 1 capsule by mouth two times a day. What changed: how much to take how to take this Another medication with the same name was removed. Continue taking this medication, and follow the directions you see here. phenytoin ER 100 mg ER capsule Commonly known as: DILANTIN Take 1 capsule by mouth three times a day. What changed: when to take this Another medication with the same name was removed. Continue taking this medication, and follow the directions you see here. CONTINUE taking these medications ARTIFICIAL TEAR SOLUTION OPHTHALMIC bisacodyl 10 mg Supp Commonly known as: DULCOLAX CLARITIN 10 mg tablet Generic drug: loratadine FLEET ENEMA enema Generic drug: sodium phosphate-sodium bisphosphate fluticasone 50 mcg/actuation nasal spray Commonly known as: FLONASE GAVISCON EXTRA STRENGTH 254-237.5 mg/5 mL Susp Generic drug: Aluminum Hydrox-Magnesium Carb LOSARTAN ORAL magnesium hydroxide 2,400 mg/10 mL Susp montelukast 10 mg tablet Commonly known as: SINGULAIR pantoprazole DR 40 mg tablet Commonly known as: PROTONIX ROBITUSSIN-DM ORAL Senna 8.6 mg Tab Generic drug: senna SOOTHE XP 1-4.5 % Drop Generic drug: Light Mineral Oil-Mineral Oil TylenoL 325 mg tablet Generic drug: acetaminophen valproic acid 250 mg/5 mL syrup Commonly known as: DEPAK (more content not included)... Normal [facility] THERAPY NTon 08-20-2024 THERAPY NT HNO ID: [id number] Author: ERIN MCDONNELL, PT Service: Physical Therapy Author Type: Physical Therapist Type: Therapy (PT/OT/Speech/Resp) Filed: 08/20/2024 09:58 Note Text: Physical Therapy Evaluation Summary SERVICE DATE: 08/20/2024 SERVICE TIME: 0844 to 0901 ROOM: [place] [address] PT 6 Clicks Score: 11 DISCHARGE RECOMMENDATIONS [facility] Recommended Discharge Disposition Comments: patient appears to be at functional baseline, reports use of nima steady and in wheelchair at discharge that she self propels. 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 Relevant Past Medical History: epilepsy, MRDD HOME LIVING Patient Lives With: Facility Care Assistance Available: 24-Hour Entry To Home: No Stairs Equipment Owned: Wheelchair- Manual (nima steady) PRIOR FUNCTIONAL LEVEL Required Assistance Assistance Required With: Transfers, Meals, Self Care reports she uses [employer] for transfers into w/c which she self-propels; they complete bathing/dressing but she does assist sometimes; feeds herself; has been at [facility] for past 10 years SUBJECTIVE Agreeable to PT session THERAPY DIAGNOSIS No Skilled Need TREATMENT INTERVENTIONS Evaluation $ Evaluation-Moderate ([id number]) Billed Units: 1 unit Skilled Treatment Time (minutes): 17 TRAINING AND EDUCATION PROVIDED Assistive Device Use, Bed Mobility, Benefits of In-Hospital Mobility, Discharge Planning, Disease Specific Education, Expected Functional Level, Role of Physical Therapy THERAPEUTIC SKILLS USED Cues for Sequencing/Proper Technique for Activity, Cuing Tactile, Cuing Verbal, Cuing Visual, Movement Facilitation, Muscle Activation Facilitation, Physical Assist, Postural Alignment Correction FUNCTIONAL STATUS Bed Mobility Supine To Sit: Minimal Assistance, Additional Information Light assistance to get trunk to upright sitting position. Cues to scoot forward and get feet touching the ground Transfers Sit To Stand: Moderate Assistance, Additional Information Instructed patient to pull at wheeled walker in order to simulate pulling at nima steady which she uses at custodial. PT assisted to stabilize walker and assisted at gait belt to come to standing position Stand To Sit: Moderate Assistance, Additional Information Cues to sit slowly onto the bed Bed to Chair Gait Maximal Assistance, Additional Information Provided cueing for side stepping and moving of wheeled walker toward HOB. Patient very off balance. Assisted to safely sit on EOB Gait Device: Wheeled Walker General Deviations/Observations: Olga decreased, Loss of Balance Gait Distance (feet): 2 side steps Stairs ROM WFL STRENGTH Strength Limitation Comments: grossly 5/5 BLEs, functionally weak and off balance BALANCE Static Sitting Balance: Good Dynamic Sitting Balance: Good Static Standing Balance: Poor Dynamic Standing Balance: Poor Rehab Potential: Good PLAN PT Frequency: Discontinue Therapy Services Reasons Therapy Services Discontinued: No skilled needs SIGNATURE: Erin Mcdonnell PT PATIENT NAME: Katheryn Chino DATE: August 20, 2024 TIME: 9:57 AM Normal [facility] THERAPY NT HNO ID: [id number] Author: BARBARA GARCIA OTR/Ailyn Service: Occupational Therapy Author Type: Occupational Therapist Type: Therapy (PT/OT/Speech/Resp) Filed: 08/20/2024 09:35 Note Text: Occupational Therapy Evaluation Summary SERVICE DATE: 08/20/2024 SERVICE TIME: 902 to 918 ROOM: [id number] OT 6 Clicks Score: 14 DISCHARGE RECOMMENDATIONS ECF Recommended Discharge Disposition Comments: recommend return to ECF; pt resident for past 10 years; appears back to her baseline function; no further acute OT needs ASSESSMENT Response to Therapy Interventions: Good Participation in Activities PRECAUTIONS Fall Risk, Bed/Chair Alarm CURRENT HOSPITAL COURSE Patient presents to the hospital due to breakthrough seizure. Relevant Past Medical History: epilepsy, MRDD HOME LIVING Patient Lives With: Facility Care Assistance Available: 24-Hour Equipment Owned: Wheelchair- Manual (nima gomez) PRIOR FUNCTIONAL LEVEL Required Assistance Assistance Required With: Transfers, Meals, Self Care reports she uses [employer] for transfers into w/c which she self-propels; they complete bathing/dressing but she does assist sometimes; feeds herself; has been at [facility] for past 10 years Baseline Cognition: Oriented to self, Oriented to place, Oriented to time, Oriented to situation SUBJECTIVE agreeable to session; no c/o pain; reports feeling back to her baseline COGNITION Responsiveness: Alert Follows Commands: 1-step Commands THERAPY DIAGNOSIS Reduced mobility-other, Decreased activities of daily living (ADL) TREATMENT INTERVENTIONS Evaluation Skilled Treatment Time (minutes): 16 $ Evaluation - Low (38113) Billed Units: 1 unit TRAINING AND EDUCATION PROVIDED Activity Adaptation/Compensatory Strategies, Bed Mobility, Benefits of In-Hospital Mobility, Functional Mobility Involving ADLs, Grooming Tasks, Orientation, Role of Occupational Therapy, Sitting Balance to Improve [place] with ADLs/Self-Care THERAPEUTIC SKILLS USED Assessment of Tolerance Including Vitals Response to Activity, Activity Dosing, Cues for Sequencing/Proper Technique for Activity, Cuing Verbal, Physical Assist FUNCTIONAL STATUS Activities of Daily Living Assist Level Additional Information Feeding Set Up Grooming Minimal Assistance Bathing Upper Body Moderate Assistance Bathing Lower Body Maximal Assistance Dressing Upper Body Moderate Assistance Dressing Lower Body Maximal Assistance Toileting Maximal Assistance Mobility Assist Level Additional Information Bed Mobility Supine To Sit: Minimal Assistance Sit To Supine: Minimal Assistance Sit to Stand Stand to Sit Bed to Chair Toilet/Commode Shower Functional Mobility ROM STRENGTH ACTIVITY TOLERANCE Sitting Activity: EOB ADLs BALANCE Static Sitting Balance: Fair Dynamic Sitting Balance: Fair GOALS PLAN OT Frequency: Discontinue Therapy Services Reasons Therapy Services Discontinued: No skilled needs SIGNATURE: KATHERINE Leonard/Ailyn PATIENT NAME: Katheryn Chino DATE: August 20, 2024 TIME: 9:35 AM Normal [facility] [id number] 08-19-2024 Phenytoin [Mass/Vol] 7.0 ug/mL Abnormal 10.0-20.0 [facility] Comment on above: Result Comment: Dete ction Limit = 0.8 <0.8 Indicates None Detected Performed at: [facility] [address], [place] [id number] Recorder Of Deeds: Haris Peraza PhD, Phone: [phone] Performed By: #### L 501.6521, L523.7703 #### [facility] [address] [place], [address] CBC W Auto Differential pane l (Bld)on 08-18-2024 Basophils (Bld) [#/Vol] 0.07 10*3/uL Normal <0.11 [facility] Comment on above: Order Comment: Speci men Type: BLOOD SPECIMEN Ordering Facility: [facility] Address: [address] [place] [address] Performed By: #### 5 7021-8 #### [facility] CLIA [id number] [address] [place] [address] [place] Basophils/100 WBC (Bld) 0.7 % Normal A [facility] Comment on above: Order Comment: Speci men Type: BLOOD SPECIMEN Ordering Facility: [facility] Address: [address] [place] [address] Performed By: #### 5 7021-8 #### [facility] CLIA [id number] [address] [place] Differential cell count method Nom (Bld) Auto Normal [facility] Comment on above: Order Comment: Speci men Type: BLOOD SPECIMEN Ordering Facility: [facility] Address: [address] [place] [address] Performed By: #### 5 7021-8 #### [facility] CLIA [id number] [address] [place] [address] [place] Eosinophils (Bld) [#/Vol] 10*3/uL Normal <0.46 [facility] Comment on above: Order Comment: Speci men Type: BLOOD SPECIMEN Ordering Facility: [facility] Address: [address] [place] [address] Performed By: #### 5 7021-8 #### [facility] CLIA [id number] [address] [place] [address] [place] Eosinophils/100 WBC (Bld) 0.2 % Normal [facility] Comment on above: Order Comment: Speci men Type: BLOOD SPECIMEN Ordering Facility: [facility] Address: [address] [place] [address] Performed By: #### 5 7021-8 #### [facility] CLIA [id number] [address] [place] Erythrocyte distribution width (RBC) [Ratio] 13.7 % Normal 11.5-15.0 [facility] Comment on above: Order Comment: Speci men Type: BLOOD SPECIMEN Ordering Facility: [facility] Address: [address] [place] [address] Performed By: #### 5 7021-8 #### [facility] CLIA [id number] [address] [place] Hematocrit (Bld) [Volume fraction] 35.4 % Low 36.0-46.0 [facility] Comment on above: Order Comment: Speci men Type: BLOOD SPECIMEN Ordering Facility: [facility] Address: [address] [place] [address] Performed By: #### 5 7021-8 #### [facility] CLIA [id number] [address] [place] Hemoglobin (Bld) [Mass/Vol] 11.5 g/dL Normal 11.5-15.5 [facility] Comment on above: Order Comment: Speci men Type: BLOOD SPECIMEN Ordering Facility: [facility] Address: [address] [place] [address] Performed By: #### 5 7021-8 #### [facility] CLIA [id number] [address] [place] Immature granulocytes (Bld) [#/Vol] 0.09 10*3/uL Normal <0.10 [facility] Comment on above: Order Comment: Speci men Type: BLOOD SPECIMEN Ordering Facility: [facility] Address: [address] [place] [address] Performed By: #### 5 7021-8 #### [facility] CLIA [id number] [address] Immature granulocytes/100 WBC (Bld) 0.9 % Normal [facility] Comment on above: Order Comment: Speci men Type: BLOOD SPECIMEN Ordering Facility: [facility] Address: [address] [place] [address] Performed By: #### 5 7021-8 #### [facility] CLIA [id number] [address] [place] Lymphocytes (Bld) [#/Vol] 3.08 10*3/uL Normal 1.00-4.00 [facility] Comment on above: Order Comment: Speci men Type: BLOOD SPECIMEN Ordering Facility: [facility] Address: [address] [place] [address] Performed By: #### 5 7021-8 #### [facility] CLIA [id number] [address] Lymphocytes/100 WBC (Bld) 31.9 % Normal [facility] Comment on above: Order Comment: Speci men Type: BLOOD SPECIMEN Ordering Facility: [facility] Address: [address] [place] [address] Performed By: #### 5 7021-8 #### [facility] CLIA [id number] [address] MCH (RBC) [Entitic mass] 29.9 pg Normal 26.0-34.0 [facility] Comment on above: Order Comment: Speci men Type: BLOOD SPECIMEN Ordering Facility: [facility] Address: [address] [place] [address] Performed By: #### 5 7021-8 #### [facility] CLIA [id number] [address] MCHC (RBC) [Mass/Vol] 32.5 g/dL Normal 30.5-36.0 [facility] Comment on above: Order Comment: Speci men Type: BLOOD SPECIMEN Ordering Facility: [facility] Address: [address] [place] [address] Performed By: #### 5 7021-8 #### [facility] CLIA [id number] [address] [place] MCV (RBC) [Entitic vol] 92.2 fL Normal 80.0-100.[address] [facility] Comment on above: Order Comment: Speci men Type: BLOOD SPECIMEN Ordering Facility: [facility] Address: [address] [place] [address] Performed By: #### 5 7021-8 #### [facility] CLIA [id number] [address] [place] Monocytes (Bld) [#/Vol] 1.02 10*3/uL High <0.87 [facility] Comment on above: Order Comment: Speci men Type: BLOOD SPECIMEN Ordering Facility: [facility] Address: [address] [place] [address] Performed By: #### 5 7021-8 #### [facility] CLIA [id number] [address] Monocytes/100 WBC (Bld) 10.5 % Normal A [facility] Comment on above: Order Comment: Speci men Type: BLOOD SPECIMEN Ordering Facility: [facility] Address: [address] [place] [address] Performed By: #### 5 7021-8 #### [facility] CLIA [id number] [address] [place] Neutrophils (Bld) [#/Vol] 5.39 10*3/uL Normal 1.45-7.50 [facility] Comment on above: Order Comment: Speci men Type: BLOOD SPECIMEN Ordering Facility: [facility] Address: [address] [place] [address] Performed By: #### 5 7021-8 #### [facility] CLIA [id number] [address] [place] Neutrophils/100 WBC (Bld) 55.8 % Normal [facility] Comment on above: Order Comment: Speci men Type: BLOOD SPECIMEN Ordering Facility: [facility] Address: [address] [place] [address] Performed By: #### 5 7021-8 #### [facility] CLIA [id number] [address] [place] Nucleated RBC (Bld) [#/Vol] 10*3/uL Normal <0.01 [facility] Comment on above: Order Comment: Speci men Type: BLOOD SPECIMEN Ordering Facility: [facility] Address: [address] [place] [address] Performed By: #### 5 7021-8 #### [facility] CLIA [id number] [address] OF [facility] Nucleated RBC/100 WBC (Bld) [Ratio] 0.0 /100 WBC Normal [facility] Comment on above: Order Comment: Speci men Type: BLOOD SPECIMEN Ordering Facility: [facility] Address: [address] [place] [address] Performed By: #### 5 7021-8 #### [facility] CLIA [id number] [address] [place] Platelet mean volume (Bld) [Entitic vol] 11.1 fL Normal 9.0-12.7 [facility] Comment on above: Order Comment: Speci men Type: BLOOD SPECIMEN Ordering Facility: [facility] Address: [address] [place] [address] Performed By: #### 5 7021-8 #### [facility] CLIA [id number] [address] [place] Platelets (Bld) [#/Vol] 185 10*3/uL Normal 150-400 [facility] Comment on above: Order Comment: Speci men Type: BLOOD SPECIMEN Ordering Facility: [facility] Address: [facility] [place] [place] [address] Performed By: #### 5 7021-8 #### [facility] CLIA [id number] [address] [place] RBC (Bld) [#/Vol] 3.84 10*6/uL Low 3.90-5.20 [facility] Comment on above: Order Comment: Speci men Type: BLOOD SPECIMEN Ordering Facility: [facility] Address: [address] [place] [place] [id number] Performed By: #### 5 7021-8 #### [facility] CLIA [id number] [address] WBC (Bld) [#/Vol] 9.67 10*3/uL Normal 3.70-11.00 [facility] Comment on above: Order Comment: Speci men Type: BLOOD SPECIMEN Ordering Facility: [facility] Address: [address] [place] [address] Performed By: #### 5 7021-8 #### [facility] CLIA [id number] [address] CONSULTon 08-18-2024 CONSULT HNO ID: [id number] Author: KEYONA SANTANA MD Service: Neurology General Author Type: Physician Type: Consults Filed: 08/18/2024 13:05 Note Text: Neurology Attending Consult Note. I have reviewed the consult note obtained and documented by the resident and I personally participated in the castellanos components. I have discussed the case and management of the patient's care with resident. The following comments revise or confirm relevant castellanos components of the note. HPI 79 yr F with PMH MRDD,H/O epilepsy admitted with breakthrough seizure. CT head done at OSH nothing acute. EEG showed moderate diffuse encephalopathy, no seizures. Dilantin level was low on admission, per documentation Valproate level prior to admission was normal but low here. Patient on baseline at Depakote 1000 mg TID but it was not started on admission by hospitalist team. On Dilantin 100 mg BID as well as ethosuximide 250 mg BID at baseline. AST/ALT 30/16, GFR 75 Physical Examination General Examination: awake, oriented to self, place HEENT: normocephalic, pupils BERL Heart: normal S1 S2 Lungs: Bilateral air entry present Abdomen: bowel sounds present Neuro: awake, oriented to self, place, CN II-XII no Nystagmus, EOMI, pupils BERL, No facial sensory loss, no facial asymmetry, tongue protrudes in midline, no uvula deviation, normal shoulder shrug, Power moves all extremities equally on commands, tone normal all 4 extremities, No tremors, No pronator drift, Reflexes + B/S/T/K/A, Plantars B/L flexor, No cerebellar signs, Romberg's deferred, denies, sensory loss to light touch/temperature, gait deferred, No frontal release signs. No involuntary movements, No NR, No Kernig's sign, No Brudzinski's sign Impressions: Breakthrough seizure Plan: -CT head at OSH nothing acute -EEG diffuse moderate slowing -Labs reviewed -Dilantin level was low on admission. Will increase Dilantin to 100 mg TID, check another level as outpatient -Restart Depakote 1000 mg TID which is baseline dose. Depakote level low this admission likely secondary to not starting the medication on admission. -On Ethosuximide 250 mg BID at baseline. Continue the same. -F/U Epilepsy as outpatient. -Patient should be compliant with AEDs -Avoid medications like Wellbutrin, Tramadol and antibiotic medications which can lower seizure threshold -Seizure precautions -Patient should not drive for 6 months and would need clearance from outpatient neurologist prior to driving. -GI/DVT prophylaxis -PT/OT/ST -Fall precautions -Further medical management per medical team -Follow up with Neurology in 4 weeks as outpatient -Will sign off at present. Please call with questions if any in the interim All questions and concerns were addressed. Jennifer Santana MD Neurology, Vascular Neurology 08/18/2024 12:53 PM [facility] CONSULT SERVICE INITIAL CONSULT NOTE REASON FOR CONSULT: breakthrough seizure HPI: Katheryn Chino is a 79 year old White female with a hx of developmental delay, epilepsy who is admitted for breakthrough seizure. She initially presented to the ED via EMS after a reported 15-min seizure in her nursing facility. On arrival to the ED she was at her baseline, however then has another seizure lasting approximately 10 minutes. At the OSH her VPA was reported to be therapeutic at 101. Due to the recurrent seizures as well as concern for status epilepticus pt was transferred to [facility] for increased monitoring. Today pt reports feeling "okay", denies any headache, dizziness, vision changes. Is oriented to self, location, year. No concerns, does report that she's tired of taking "so many pills". Does not remember anything leading up to her seizures, denies nausea, vomiting, fever, chills. Per chart review patient was following with Dr. Morfin for epilepsy, last seen in 2019. Per last note pt has been seizure free since 2018, with rare seizures prior to that. She is taking Depakene 1000mg TID, phenytoin ER 100mg BID, ethosuximide 250mg BID. Objective: BP 129/59 Pulse 76 Temp 37.2 ?C (98.9 ?F) (Oral) Resp 18 Ht 167.6 cm (5' 6") Wt 87.2 kg (192 lb 3.9 oz) SpO2 93% BMI 31.03 kg/m? NEUROLOGICAL EXAM: Mental Status: Alert, oriented to self. Location, year Cranial Nerves: CNII: Visual hunt full to confrontation, No APD noted on exam CNIII, IV, : Pupils equal, round and reactive to light, full extraoccular movements, without nystagmus CN V: Facial sensation intact bilaterally to fine touch CN VII: Facial muscles symmetric and strong, No noted facial droop CN VIII: Hears finger rub well bilaterally CN IX: Gag Reflex Not examined CN X: Palate elevates symmetrically CN XI: Full strength shoulder shrug bilaterally CN XII: Could not be assessed. Motor: normal tone, moves extremities spontaneously against grav (more content not included)... Normal [facility] CONSULT HNO ID: [id number] Author: CHASE ROBERTSON APRN.MACHINED PARTS QUALITY INSPECTOR Service: Palliative Care Author Type: Nurse Practitioner Type: Consults Filed: 08/18/2024 12:36 Note Text: INPATIENT PALLIATIVE MEDICINE NOTE [facility] Katheryn Chino [id number] * Palliative Medicine Diagnoses: Seizures, MDD, dementia, debility, CHF Symptom Meds Last 24 Hrs: none Opioid meds last 24 hours: none Total MME last 24 hours: 0 Subjective Referring Provider for Consult: Dr. Dominguez Palliative Medicine consulted for: Symptom management Will be communicated via shared medical record. HPI: Patient aysha 79 y/o female with a PMH of MDD, HTN, and seizures who presented from [place] with 10-15 minutes of grand mal seizures. Patient is from [place]. HCPOA 1 is brother Danny, 2 Richard, 3 Rae Stinson. Introduction to Palliative Medicine: Introduced the role and philosophy of palliative medicine in the evaluation and management of symptoms and treatment. Palliative medicine was introduced as a service for patients with serious illness to help with symptoms, assist with goals of care conversations, navigate complex decision making, improve quality of life for patients and provide support for patients and families. Home Opioid Regimen: OARRS Check: PDMP website checked and validated. No controlled substance prescriptions were reported. 08/18/2024 by Chase Robertson APRN.MACHINED PARTS QUALITY INSPECTOR PAST MEDICAL HISTORY Diagnosis Date High blood pressure Seizures (HCC) PAST MEDICAL HISTORY Diagnosis Date High blood pressure Seizures (HCC) PAST SURGICAL HISTORY Procedure Laterality Date COLONOSCOPY 03/31/2009 normal EGD 07/13/2016 abnormal LES,hiatal hernia, esophagitis and gastritis FAMILY HISTORY Problem Relation Age of Onset Breast Cancer Mother Social History Tobacco Use Smoking status: Never Smokeless tobacco: Never Review of Systems All other systems reviewed and are negative. Palliative Assessment Review of Symptoms (Modified [place] Symptom Assessment): Pain: None Dyspnea: None Nausea: None Appetite: fair Constipation: None, Last BM: Depression: None Anxiety: None Fatigue: None Drowsiness: None Agitation: No Insomnia: No Objective PHYSICAL EXAM: PALLIATIVE PERFORMANCE SCALE (PPS) --- 50 % Ambulation Activity Level Evidence of Disease Self-Care Intake Level of Consciousness 100 Full Normal No Disease Full Normal Full 90 Full Normal Some Disease Full Normal Full 80 Full Normal with Effort Some Disease Full Normal or Reduced Full 70 Reduced Can?t do normal job or work Some Disease Full As above Full 60 Reduced Can?t do hobbies or housework Significant Disease Occasional Assistance Needed As above Full or Confusion 50 Mainly sit/lie Can?t do any work Extensive Disease Considerable Assistance Needed As above Full or Confusion 40 Mainly in Bed As above Mainly Assistance As above Full or Drowsy or Confusion 30 Bed Bound As above Total Care Reduced As above 20 Bed Bound As above As above Minimal As above 10 Bed Bound As above As above Mouth Care Only Drowsy or Coma 0 - - - -- (a) Survival post-admission to an inpatient palliative unit, all diagnoses (Marleen 2002). Vitals: 08/17/24 2045 08/18/24 0104 08/18/24 0740 BP: 142/62 127/67 145/69 Pulse: 70 71 80 Resp: 18 20 18 Temp: 36.8 ?C (98.2 ?F) 36.4 ?C (97.5 ?F) TempSrc: Axillary Axillary Axillary SpO2: 95% 92% 96% Weight: 87.2 kg (192 lb 3.9 oz) Height: 167.6 cm (5' 6") Physical Exam Constitutional: Appearance: Normal appearance. She is normal weight. HENT: Right Ear: Tympanic membrane normal. Mouth/Throat: Mouth: Mucous membranes are dry. Pharynx: Oropharynx is clear. Cardiovascular: Rate and Rhythm: Normal rate. Pulses: Normal pulses. Pulmonary: Effort: Pulmonary effort is normal. Abdominal: General: Abdomen is flat. Bowel sounds are normal. Palpations: Abdomen is soft. Musculoskeletal: General: Normal range of motion. Skin: General: Skin is warm. Neurological: General: No focal deficit present. Mental Status: She is alert. Mental status is at baseline. Comments: Oriented x2-3 Psychiatric: Mood and Affect: Mood normal. Behavior: Behavior normal. Thought Content: Thought content normal. No intake or output data in the 24 hours ending 08/18/24 0828 MEDICATIONS REVIEWED: Yes Current Facility-Administered Medications Medication Dose Route Frequency montelukast 10 mg tab(s) (SINGULAIR) 10 mg ORAL DAILY bisacodyl 10 mg suppository (DULCOLAX) 10 mg RECTAL DAILY PRN pantoprazole DR 40 mg tab(s) (PROTONIX) 40 mg ORAL DAILY senna 8.6 mg tab(s) (SENOKOT) 8.6 mg ORAL BID acetaminophen 650 mg tab(s) (TYLENOL) 650 mg ORAL q 6 H PRN ethosuximide 250 mg cap(s) (ZARONTIN) 250 mg ORAL BID phenytoin ER 100 mg cap(s) (DILANTIN) 100 mg ORAL BID levETIRAcetam 1,500 mg injection (KEPPRA) 1,500 mg INTRAVENOUS q 5 MIN PRN (more content not included)... Normal [facility] Comprehensive metabolic 2000 panelon 08-18-2024 Albumin [Mass/Vol] 4.3 g/dL Normal 3.9-4.9 [facility] Comment on above: Order Comment: Speci men Type: BLOOD SPECIMEN Ordering Facility: [facility] Address: [address] [place] [address] Performed By: #### 1 9123-06, 00815-7 #### [facility] CLIA [id number] [address] OF [facility] ALP [Catalytic activity/Vol] 115 U/L Normal 34-123 [facility] Comment on above: Order Comment: Speci men Type: BLOOD SPECIMEN Ordering Facility: [facility] Address: [address] [place] [address] Performed By: #### 1 9123-06, 06961-9 #### [facility] CLIA [id number] [address] OF [facility] ALT With P-5'-P [Catalytic activity/Vol] 16 U/L Normal 7-38 [facility] Comment on above: Order Comment: Speci men Type: BLOOD SPECIMEN Ordering Facility: [facility] Address: [address] [place] [address] Performed By: #### 1 9123-06, 83146-1 #### [facility] CLIA [id number] [address] OF [facility] Anion gap [Moles/Vol] 13 mmol/L Normal 8-15 [facility] Comment on above: Order Comment: Speci men Type: BLOOD SPECIMEN Ordering Facility: [facility] Address: [address] [place] [address] Performed By: #### 1 9123-06, 65349-6 #### [facility] CLIA [id number] [address] [place] AST With P-5'-P [Catalytic activity/Vol] 30 U/L Normal 13-35 [facility] Comment on above: Order Comment: Speci men Type: BLOOD SPECIMEN Ordering Facility: [facility] Address: [address] [place] [address] Performed By: #### 1 9123-06, 37174-0 #### [facility] CLIA [id number] [address] [place] Bilirubin [Mass/Vol] 0.4 mg/dL Normal 0.2-1.3 [facility] Comment on above: Order Comment: Speci men Type: BLOOD SPECIMEN Ordering Facility: [facility] Address: [address] [place] [address] Performed By: #### 1 23-9, 67633-9 #### [facility] CLIA [id number] [address] [place] [address] [place] Calcium [Mass/Vol] 9.3 mg/dL Normal 8.5-10.2 [facility] Comment on above: Order Comment: Speci men Type: BLOOD SPECIMEN Ordering Facility: [facility] Address: [address] [place] [address] Performed By: #### 1 23-9, 15657-2 #### [facility] CLIA [id number] [address] [place] Chloride [Moles/Vol] 103 mmol/L Normal 98-107 [facility] Comment on above: Order Comment: Speci men Type: BLOOD SPECIMEN Ordering Facility: [facility] Address: [address] [place] [address] Performed By: #### 1 23-9, 04304-6 #### [facility] CLIA [id number] [address] [place] CO2 [Moles/Vol] 25 mmol/L Normal 22-30 [facility] Comment on above: Order Comment: Speci men Type: BLOOD SPECIMEN Ordering Facility: [facility] Address: [address] [place] [address] Performed By: #### 1 23-9, 71303-4 #### [facility] CLIA [id number] [address] [place] [address] [place] Creatinine [Mass/Vol] 0.81 mg/dL Normal 0.58-0.96 [facility] Comment on above: Order Comment: Speci men Type: BLOOD SPECIMEN Ordering Facility: [facility] Address: [address] [place] [address] Performed By: #### 1 9123-9, 96378-4 #### [facility] CLIA [id number] [address] Creatinine and Glomerular filtration rate.predicted panel (S/P/Bld) 75 mL/min/1.73m??? Normal >=60 [facility] Comment on above: Order Comment: Ina lobato Type: BLOOD SPECIMEN Ordering Facility: [facility] Address: [address] [place] [address] Result Comment: Yesika mated Glomerular Filtration Rate (eGFR) is calculated using the 2020 CKD-EPI creatinine equation. This equation utilizes serum creatinine, sex, and age as parameters. The creatinine assay has traceable calibration to isotope dilution-mass spectrometry. Refer to KDIGO guidelines for clinical interpretation. In patients with unstable renal function, e.g. those with acute kidney injury, the eGFR may not accurately reflect actual GFR. Performed By: #### 1 9123-9, 56771-0 #### [facility] CLIA [id number] [address] [place] [address] [place] Glucose [Mass/Vol] 84 mg/dL Normal 74-99 [facility] Comment on above: Order Comment: Ina lobato Type: BLOOD SPECIMEN Ordering Facility: [facility] Address: [address] [place] [address] Result Comment: The [place] Diabetes Association (ADA) provides guidance for cutoff values for fasting glucose and random glucose. The ADA defines fasting as no caloric intake for at least 8 hours. Fasting plasma glucose results between 100 to 125 mg/dL indicate increased risk for diabetes (prediabetes). Fasting plasma glucose results greater than or equal to 126 mg/dL meet the criteria for diagnosis of diabetes. In the absence of unequivocal hyperglycemia, results should be confirmed by repeat testing. In a patient with classic symptoms of hyperglycemia or hyperglycemic crisis, random plasma glucose results greater than or equal to 200 mg/dL meet the criteria for diagnosis of diabetes. Reference: Standards of Medical Care in Diabetes 2016, [place] [employer] Association. Diabetes Care. 2016.39(Suppl 1). Performed By: #### 1 9123-9, 80977-4 #### [facility] CLIA [id number] [address] [place] Potassium [Moles/Vol] 4.4 mmol/L Normal 3.7-5.1 [facility] Comment on above: Order Comment: Speci men Type: BLOOD SPECIMEN Ordering Facility: [facility] Address: [address] [place] [address] Performed By: #### 1 9123-9, 79930-9 #### [facility] CLIA [id number] [address] [place] [address] [place] Protein [Mass/Vol] 7.4 g/dL Normal 6.3-8.0 [facility] Comment on above: Order Comment: Speci men Type: BLOOD SPECIMEN Ordering Facility: [facility] Address: [address] [place] [address] Performed By: #### 1 9123-9, 88580-9 #### [facility] CLIA [id number] [address] [place] Sodium [Moles/Vol] 141 mmol/L Normal 136-144 [facility] Comment on above: Order Comment: Speci men Type: BLOOD SPECIMEN Ordering Facility: [facility] Address: [address] [place] [address] Performed By: #### 1 9123-9, 68028-3 #### [facility] CLIA [id number] [address] [place] Urea nitrogen [Mass/Vol] 19 mg/dL Normal 7-21 [facility] Comment on above: Order Comment: Speci men Type: BLOOD SPECIMEN Ordering Facility: [facility] Address: [address] [place] [address] Performed By: #### 1 9123-9, 00719-0 #### [facility] CLIA [id number] [address] [place] [address] [place] Magnesium SerPl-mCncon 08-18 Magnesium [Mass/Vol] 1.9 mg/dL Normal 1.7-2.3 [facility] Comment on above: Order Comment: Speci men Type: BLOOD SPECIMEN Ordering Facility: [facility] Address: [address] [place] [address] Performed By: #### 1 9123-9, 74198-5 #### [facility] CLIA [id number] [address] Phenytoin SerPl-mCncon 08-18 Phenytoin [Mass/Vol] 6.8 ug/mL Low 10.0-20.0 [facility] Comment on above: Order Comment: Speci men Type: BLOOD SPECIMEN Ordering Facility: [facility] Address: [address] [place] [address] Result Comment: Refe rence ranges and high/low indicator flags are provided as general guidelines only. The treating physician must determine appropriate target levels/dosing based on the specific clinical situation. Performed By: #### 3 968-5 #### [facility] CLIA [id number] [address] Urinalysis complete panel (U )on 08-18-2024 Bilirubin Ql (U) Negative Normal Negative [facility] Comment on above: Order Comment: Speci men Type: URINE SPECIMEN Ordering Facility: [facility] Address: [address] [place] [address] Performed By: #### 2 4356-8 #### [facility] CLIA [id number] [address] [place] Clarity (Unsp spec) Clear Normal Clear [facility] Comment on above: Order Comment: Speci men Type: URINE SPECIMEN Ordering Facility: [facility] Address: [address] [place] [address] Performed By: #### 2 4356-8 #### [facility] CLIA [id number] [address] OF [facility] Color (U) Yellow Normal yellow [facility] Comment on above: Order Comment: Speci men Type: URINE SPECIMEN Ordering Facility: [facility] Address: [address] [place] [address] Performed By: #### 2 4356-8 #### [facility] CLIA [id number] [address] Epithelial cells LM.HPF (Urine sed) [#/Area] Few Normal [facility] Comment on above: Order Comment: Speci men Type: URINE SPECIMEN Ordering Facility: [facility] Address: [address] [place] [address] Performed By: #### 2 4356-8 #### [facility] CLIA [id number] [address] Glucose Test strip (U) [Mass/Vol] Negative Normal Trace, Negative [facility] Comment on above: Order Comment: Speci men Type: URINE SPECIMEN Ordering Facility: [facility] Address: [address] [place] [address] Performed By: #### 2 4356-8 #### [facility] CLIA [id number] [address] Hemoglobin Ql (U) Negative Normal Negative, Trace [facility] Comment on above: Order Comment: Speci men Type: URINE SPECIMEN Ordering Facility: [facility] Address: [address] [place] [address] Performed By: #### 2 4356-8 #### [facility] CLIA [id number] [address] Ketones Ql (U) Negative Normal Negative, Trace [facility] Comment on above: Order Comment: Speci men Type: URINE SPECIMEN Ordering Facility: [facility] Address: [address] [place] [address] Performed By: #### 2 4356-8 #### [facility] CLIA [id number] [address] Leukocyte esterase Test strip Ql (U) 75 James/uL Abnormal Negative, 25 James/uL [facility] Comment on above: Order Comment: Speci men Type: URINE SPECIMEN Ordering Facility: [facility] Address: [address] [place] [address] Performed By: #### 2 4356-8 #### [facility] CLIA [id number] [address] [place] Nitrite Ql (U) Negative Normal Negative [facility] Comment on above: Order Comment: Speci men Type: URINE SPECIMEN Ordering Facility: [facility] Address: [address] [place] [address] Performed By: #### 2 4356-8 #### [facility] CLIA [id number] [address] pH (U) 6.0 [pH] Normal 5.0-8.0 [facility] Comment on above: Order Comment: Speci men Type: URINE SPECIMEN Ordering Facility: [facility] Address: [address] [place] [address] Performed By: #### 2 4356-8 #### [facility] CLIA [id number] [address] Protein (U) [Mass/Vol] Trace Normal Trace , Negative [facility] Comment on above: Order Comment: Speci men Type: URINE SPECIMEN Ordering Facility: [facility] Address: [address] [place] [address] Performed By: #### 2 4356-8 #### [facility] CLIA [id number] [address] RBC LM.HPF (Urine sed) [#/Area] 0-3 /HPF Normal 0-3 /HPF [facility] Comment on above: Order Comment: Speci men Type: URINE SPECIMEN Ordering Facility: [facility] Address: [address] [place] [address] Performed By: #### 2 4356-8 #### [facility] CLIA [id number] [address] [place] Specific gravity (U) [Rel density] 1.029 Normal 1.005-1.030 [facility] Comment on above: Order Comment: Speci men Type: URINE SPECIMEN Ordering Facility: [facility] Address: [address] [place] [address] Performed By: #### 2 4356-8 #### [facility] CLIA [id number] [address] OF [facility] Urobilinogen Ql (U) Normal Normal Normal [facility] Comment on above: Order Comment: Speci men Type: URINE SPECIMEN Ordering Facility: [facility] Address: [address] [place] [address] Performed By: #### 2 4356-8 #### [facility] CLIA [id number] [address] [place] [facility] WBC LM.HPF (Urine sed) [#/Area] 6-10 /HPF Abnormal 0-5 /HPF [facility] Comment on above: Order Comment: Speci men Type: URINE SPECIMEN Ordering Facility: [facility] Address: [address] [place] [address] Performed By: #### 2 4356-8 #### [facility] CLIA [id number] [address] STATES OF [facility] Valproate Free SerPl-ncon 08-18-2024 Valproate Free [Mass/Vol] 1.8 ug/mL Low 4.0-30.0 [facility] Comment on above: Order Comment: Speci men Type: BLOOD SPECIMEN Ordering Facility: [facility] Address: [address] [place] [address] Result Comment: Refe rence ranges and high/low indicator flags are provided as general guidelines only. The treating physician must determine appropriate target levels/dosing based on the specific clinical situation. This test was developed, and its performance characteristics determined by the [facility] Department of Pathology and Laboratory Medicine. It has not been cleared or approved by the FDA. The [facility] Department of Pathology and Laboratory Medicine is regulated under CLIA as qualified to perform high-complexity testing. This test is used for clinical purposes. It should not be regarded as investigational or for research. Performed By: #### 4 087-3 #### [facility] CLIA [id number] [address] [place] [address] [id number] [place] [address] [place] Basic Metabolic Profile (BMP )on 08-17-2024 BUN/CRE 29.4 RATIO High 10-20 [facility] Comment on above: Performed By: #### L 501.8100, L501.7700 #### [facility] [address] [place], [address] CA,Total 8.8 mg/dL Normal 8.5-10.1 [facility] Comment on above: Performed By: #### L 501.8100, L501.7700 #### [facility] [address] [place], [address] Chloride [Moles/Vol] 110 mmol/L High 98-107 [facility] Comment on above: Performed By: #### L 501.8100, L501.7700 #### [facility] [address] [place], [address] CO2 [Moles/Vol] 25.0 mmol/L Normal 21.0-32.0 [facility] Comment on above: Performed By: #### L 501.8100, L501.7700 #### [facility] [address] [place], [address] Creatinine [Mass/Vol] 0.75 mg/dL Normal 0.55-1.02 [facility] Comment on above: Result Comment: The validity of the calculated GFR GFRAA in patients over 70 years has not been determined. Clinical correlation is essential. Performed By: #### L 501.8100, L501.7700 #### [facility] [address] [place], [address] ECRCL 63.42 ml/min Normal [facility] Comment on above: Performed By: #### L 501.8100, L501.7700 #### [facility] [address] [place], [address] EST GFR - AA 97 mL/min Normal >60 [facility] Comment on above: Result Comment: Afri can Kyr[place]z GFR Calc Performed By: #### L 501.8100, L501.7700 #### [facility] [address] [place], [address] GAP 7 Normal 5-15 [facility] Comment on above: Performed By: #### L 501.8100, L501.7700 #### [facility] [address] [place], [address] GFR/1.73 sq M.predicted among non-blacks MDRD (S/P/Bld) [Vol rate/Area] 80 mL/min/{1.73_m2} Normal >60 [facility] Comment on above: Result Comment: Non- GFR Calc Performed By: #### L 501.8100, L501.7700 #### [facility] [address] [place], [address] Glucose [Mass/Vol] 102 mg/dL Normal 74-106 [facility] Comment on above: Result Comment: Fast ing Glucose result from 100 to 125 mg/dL suggests IMPAIRED HOMEOSTASIS per A.D.A. criteria. Performed By: #### L 501.8100, L501.7700 #### [facility] [address] [place], [address] Potassium [Moles/Vol] 4.1 mmol/L Normal 3.5-5.1 [facility] Comment on above: Performed By: #### L 501.8100, L501.7700 #### [facility] [address] [place], [address] Sodium [Moles/Vol] 142 mmol/L Normal 136-145 [facility] Comment on above: Performed By: #### L 501.8100, L501.7700 #### [facility] [address] [place], [address] Urea nitrogen [Mass/Vol] 22 mg/dL High 7-18 [facility] Comment on above: Performed By: #### L 501.8100, L501.7700 #### [facility] [address] [place], [address] Brain/Head without Contrasto n 08-17-2024 Brain/Head without Contrast [facility] Services [address] [place], [place] [address] Brain/Head without Contrast MR#: [id number] Acct: [id number] Name: KATHERYN CHINO Rep #: [id number] : 1945 F 79 From: Parag Servin MD PCP: Ron SESAY, Todd Status: REG ER Study: Brain/Head without Contrast Date of Exam: 01/05 Exam# [id number] Ordering Dr: Hayes Nicholson DO [id number] EXAM: CT HEAD WITHOUT INTRAVENOUS CONTRAST CLINICAL INDICATION: seizure TECHNIQUE: Multiple axial images were obtained of the head without intravenous contrast. This CT exam was performed using one or more of the following dose reduction techniques: automated exposure control, adjustment of the mA and/or kV according to patient size, and/or use of iterative reconstruction technique. COMPARISON: CT Head dated 09/18/2023 FINDINGS: BRAIN AND EXTRA-AXIAL SPACES: Motion artifacts degrade the overall quality of the exam. No hemorrhage or mass effect. No acute ischemia. Areas of diminished white matter density noted within both cerebral hemispheres suggestive of chronic microvascular change. Prominence of the cortical sulci and ventricles related to volume loss change. BONES/JOINTS: Normal calvarium. SINUSES: No acute sinusitis. MASTOID AIR CELLS: Normal. Clear. CT/Brain/Head without Contrast IMPRESSION: 1. No acute intracranial abnormality. 2. Stable senescent changes. Electronically Signed: Parag Servin MD at 12:08 EST , CC: Todd Velasquez MD; Dr. Hayes Nicholson DO Order Dispatcher Chief: Signed Normal [facility] CBC W/Diff, Automatedon 11-0 Absolute Lymph 2.98 X10 3/uL Normal 0.83-4.51 [facility] Comment on above: Performed By: #### L 501.8100, L501.7700 #### [facility] [address] [place], [address] Absolute Neut 4.1 X10 3/uL Normal 2.0-7.7 [facility] Comment on above: Performed By: #### L 501.8100, L501.7700 #### [facility] [address] [place], [address] Basophils/100 WBC (Bld) 0.9 % Normal 0-1 [facility] Comment on above: Performed By: #### L 501.8100, L501.7700 #### [facility] [address] [place], [address] Eosinophils/100 WBC (Bld) 0.7 % Normal 0-5 [facility] Comment on above: Performed By: #### L 501.8100, L501.7700 #### [facility] [address] [place], [address] Erythrocyte distribution width (RBC) [Ratio] 13.6 % Normal 11.6-14.6 [facility] Comment on above: Performed By: #### L 501.8100, L501.7700 #### [facility] [address] [place], [address] Hematocrit (Bld) [Volume fraction] 38.5 % Normal 37-47 [facility] Comment on above: Performed By: #### L 501.8100, L501.7700 #### [facility] [address] [place], [address] Hemoglobin (Bld) [Mass/Vol] 12.5 g/dL Normal 12.0-15.0 [facility] Comment on above: Performed By: #### L 501.8100, L501.7700 #### [facility] [address] [place], [address] IG% 0.700 Normal 0.0-0.9 [facility] Comment on above: Result Comment: IG% - Immature Granulocytes (promyelocytes, myelocytes and metamyelocytes) > 1% indicates that a LEFT SHIFT is Present. Performed By: #### L 501.8100, L501.7700 #### [facility] [address] [place], [address] Lymphocytes/100 WBC (Bld) 37.2 % Normal 19-41 [facility] Comment on above: Performed By: #### L 501.8100, L501.7700 #### [facility] [address] [place], [address] MCH (RBC) [Entitic mass] 29.6 pg Normal 27.0-32.0 [facility] Comment on above: Performed By: #### L 501.8100, L501.7700 #### [facility] [address] [place], [address] MCHC (RBC) [Mass/Vol] 32.5 g/dL Normal 32-36 [facility] Comment on above: Performed By: #### L 501.8100, L501.7700 #### [facility] [address] [place], [address] MCV (RBC) [Entitic vol] 91.0 fL Normal 81-99 [facility] Comment on above: Performed By: #### L 501.8100, L501.7700 #### [facility] [address] [place], [address] Monocytes/100 WBC (Bld) 9.5 % Normal 0-10 [facility] Comment on above: Performed By: #### L 501.8100, L501.7700 #### [facility] [address] [place], [address] Neutrophils/100 WBC (Bld) 51.0 % Normal 47-70 [facility] Comment on above: Performed By: #### L 501.8100, L501.7700 #### [facility] [address] [place], [address] Nucleated RBC (Bld) [#/Vol] 0 10*3/uL Normal 0-5 [facility] Comment on above: Performed By: #### L 501.8100, L501.7700 #### [facility] [address] [place], [address] Platelet mean volume (Bld) [Entitic vol] 11.1 fL Normal 6.2-12.0 [facility] Comment on above: Performed By: #### L 501.8100, L501.7700 #### [facility] [address] [place], [address] Platelets (Bld) [#/Vol] 197 10*3/uL Normal 150-450 [facility] Comment on above: Performed By: #### L 501.8100, L501.7700 #### [facility] [address] [place], [address] RBC (Bld) [#/Vol] 4.23 10*6/uL Normal 4.2-5.4 [facility] Comment on above: Performed By: #### L 501.8100, L501.7700 #### [facility] [address] [place], [address] RDW SD 45.6 fl High 35.1-43.9 [facility] Comment on above: Performed By: #### L 501.8100, L501.7700 #### [facility] [address] [place], [address] WBC (Bld) [#/Vol] 8.0 10*3/uL Normal 4.4-11.0 [facility] Comment on above: Performed By: #### L 501.8100, L501.7700 #### [facility] [address] [place], [address] Kuldip 08-17-2024 CNPKathrine Telephone (NEURTE) -------- KATHERYN CHINO ([id number]) 1945 F Date Time Provider Department 08/17/24 FRANCISCO JAVIER SALAZAR During your visit today, we recorded the following information about you: Francisco Javier Salazar MD 08/17/2024 11:50 AM Signed I received a call from the emergency room at [facility] regarding a patient of Dr. Nava. Patient has been seen by Dr. Nava in 2019. This is a patient with developmental delay and epilepsy. She has primary generalized seizures. Previous notes:Review of records for Katheryn Chino, a 74 year old developmentally delayed female, being referred by Dr. 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 She is wheelchair bound with struggles with dysphasia; her brother is POA. EEG report (08/2018) noted "This EEG supports the diagnosis of generalized epilepsy. There were infrequent spike wave discharges generalized during sleep." MRI brain report noted "Fairly prominent extra-axial fluid surrounding the bilateral cerebral hemispheres, with somewhat less extensive prominence of the cerebellar folia. 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 Patient currently takes 3 AEDs; and POA/brother doesn't recall prior AED trials, which are also unavialble in OSH record. She has rare seizures, last seizure in 2018, prior to that she had been seizure free 3 years. Visit with epileptologist at [facility] and long EEG are indicated at this time due to rare seizures. Events on 08/17/2024 Patient had a 15-minute seizure in the custodial. She had not had any seizures recently. Her Depakote level was therapeutic at 101. She went back to her baseline when she was in the ER. She had another seizure in the emergency room that lasted approximately 10 minutes. She is a DNR/DNI. Her brother is available for making decisions. I think the patient should be transferred to higher level of care. She may be in status epilepticus since it is difficult to assess whether she is back to her baseline given her developmental delay. Obviously the family needs to make a decision as to whether she is to have comfort care or aggressive care of her seizures. She may need continuous EEG monitoring and this is available only at larger centers. Many of these patients will need intubation for managing status epilepticus if this is present. I think if they do not want any aggressive treatment and only comfort care one option may be to give levetiracetam 1 g IV and then 500 twice a day and observe her for 24 hours in another hospital facility without continuous EEG monitoring. Patient has not been seen in the [facility] system since 2019. At the minimum she needs an evaluation to reassess her epilepsy. Francisco Javier Salazar MD Neurology. (Telemedicine neurologist) Allergies As of Date: 08/17/2024 (No Known Allergies) Date Reviewed: 09/01/2019 Reviewed by: Katalina Al (Formerly [facility]) - Fully Assessed Prescriptions as of 08/17/2024 - fluticasone (FLONASE) 50 mcg/actuation nasal spray - montelukast (SINGULAIR) 10 mg tablet - ethosuximide (ZARONTIN) 250 mg capsule twice daily. - phenytoin ER (DILANTIN) 100 mg ER capsule Take 100 mg by mouth once daily. - phenytoin chewable (DILANTIN) 50 mg tablet Take 50 mg by mouth once daily. - magnesium hydroxide 2,400 mg/10 mL susp Take 10 mL by mouth once daily as needed. - senna (SENNA) 8.6 mg tab Take 8.6 mg by mouth twice daily. - bisacodyl (DULCOLAX) 10 mg supp 10 mg by RECTAL route once daily as needed. - sodium phosphate-sodium bisphosphate (FLEET ENEMA) enema 1 Enema by RECTAL route one time only. - Cholecalciferol, Vitamin D3, (VITAMIN D-3) 2,000 unit cap Take by mouth. - Aluminum Hydrox-Magnesium Carb (GAVISCON EXTRA STRENGTH) 254-237.5 mg/5 mL susp Take by mouth. - Light Mineral Oil-Mineral Oil (SOOTHE XP) 1-4.5 % drop Use in both eyes. - dext 70/polycarbophil/peg/NaC l (ARTIFICIAL TEAR SOLUTION OPHTHALMIC) Use in eyes. - guaifenesin/dextromethor tanner (ROBITUSSIN-DM ORAL) Take by mouth. - loratadine (CLARITIN) 10 mg tablet Take 10 mg by mouth once daily. - ethosuximide (ZARONTIN) 250 mg/5 mL solution TAKE 10ML BY MOUTH TWO TIMES DAILY - phenytoin (DILANTIN) 125 mg/5 mL susp Take 8 mL by mouth daily at bedtime. - valproic acid (DEPAKENE) 250 mg/5 mL syrup Take 20 mL by mouth three times daily. - ethosuximide (ZARONTIN) 250 mg/5 mL solution Take 20 mL by mouth twice daily. - phenytoin sodium extended (DILANTIN ORAL) Take by mouth. - valproic acid (DEPAKENE) 250 mg capsule Take 250 mg by mouth three times daily. 4 capsules (1000 mg) - PHENYTOIN SODIUM ORAL Take by mouth. - losartan potassium (more content not included)... Normal [facility] Chest 1 View (Portable)on Chest 1 View (Portable) [facility] Imaging Services [address] [place] [id number] Chest 1 View (Portable) MR#: [id number] Acct: [id number] Name: KATHERYN CHINO Rep #: [id number] : 1945 F 79 From: Rudy Jimenez PCP: Ron SESAY, Todd Status: REG ER Study: Chest 1 View (Portable) Date of Exam: 08/17/24 Exam# [id number] Ordering Dr: Ariel Yang DO [id number] EXAM: XR CHEST, 1 VIEW CLINICAL INDICATION: cough TECHNIQUE: Frontal view of the chest. COMPARISON: 09/18/2023. FINDINGS: LUNGS AND PLEURAL SPACES: Streaky opacities in the right upper lobe may be due to pneumonia or atelectasis. Very low lung volumes with an elevated right hemidiaphragm limit the exam. No pneumothorax. No effusion. HEART: Unremarkable. Cardiac silhouette not enlarged. MEDIASTINUM: Central airways and mediastinal contour are unremarkable. BONES/JOINTS: Unremarkable. No acute fracture. SOFT TISSUES: Unremarkable. RAD/Chest 1 View (Portable) IMPRESSION: 1. Streaky opacities in the right upper lobe may be due to pneumonia or atelectasis. 2. Very low lung volumes with an elevated right hemidiaphragm limit the exam. Electronically Signed: Rudy Gonzales MD at 7:49 EST , CC: Todd Velasquez MD; Ariel Yang DO Order Dispatcher Chief: Signed Normal [facility] Emergency Department Summary on 08-17-2024 Emergency Department Summary [facility] Medical Records Department [address] [place] [address] Emergency Department Summary 08/17/24 MR#: [id number] Acct: [id number] Name: KATHERYN CHNIO Rep #: [id number] : 1945 79 From: Ariel Yang DO PCP: Ron SESAY, Todd Status:REG ER Location: ED ADDENDUM by Dr. Hayes Nicholson DO on 08/17/24 at 1241 Update: 1239 hrs.: Patient's ride back to custodial arrived. The patient then entered a generalized seizure again. This required a total of 2 mg of Ativan to abort. Patient did require some supplemental oxygen. 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 I spoke with on-call neurology through [facility]. Recommended giving a gram of Keppra. We spoke with the patient's brother who is the POA. He states that this is atypical for the patient's seizures as typically they are short and she has a postictal timeframe and then achieves baseline but does not typically receives. We do not have in-house neurology/EEG today. Recommendation is for transfer. I spoke with [facility] And the patient has been accepted. We are currently awaiting bed assignment. I did image the patient's head via CT. This was negative for acute findings. 08/17/24 1241 Cosigner Signature (if applicable): cc: Todd Velasquez MD * Signed ADDENDUM by Dr. Hayes Nicholson DO on 08/17/24 at 0847 Update 0846 hrs.: I reviewed the patient's labs. I do not see any obvious UTI. She is not profoundly hyponatremic Perlick acid level is 101. This is in range with her prior valproic acid levels recently. I do not think she is toxic on it. Dilantin is now a send out test and will return. She is achieved neurologic baseline. We will proceed with Dr. Yang plan of discharge. 08/17/24 0847 Cosigner Signature (if applicable): cc: Todd Velasquez MD * Signed HPI History of Present Illness Chief Complaint: Seizure Informant: patient, EMS and SNF Narrative Narrative: Patient is a 79-year-old female with past medical history of epilepsy hypertension hypothyroidism and congestive heart failure. She states she has had a seizure disorder since the age of 6. Reportedly the patient had a witnessed seizure lasting 8 to 10 minutes at the custodial where she was "unresponsive and foaming at the mouth". She states she does not remember any event other than the people at the custodial telling her this. She states she has been feeling fine otherwise and she has been taking her medications as directed as she has been getting them from the custodial staff. However based on the reported breakthrough seizure that occurred this morning she was sent in for further evaluation [facility] Medical History Dysphagia, oropharyngeal phase Generalized anxiety disorder Plantar fascial fibromatosis Primary osteoarthritis, right hand Primary osteoarthritis, right wrist Hypokalemia Other specified peripheral vascular diseases Cervicalgia Personal history of COVID-19 Degenerative disease of nervous system, unspecified Heart failure, unspecified Hypertensive heart disease with heart failure Changes in retinal vascular appearance, bilateral Dry eye syndrome of bilateral lacrimal glands Major depressive disorder, recurrent, unspecified Cognitive communication deficit Dysthymic disorder Other secondary cataract, left eye Insomnia, unspecified Age-related physical debility Weakness Other lack of coordination Unspecified abnormalities of gait and mobility Other optic atrophy, right eye Presbyopia Age-related osteoporosis without current pathological fracture Allergic rhinitis, unspecified Functional urinary incontinence Primary generalized (osteo)arthritis Unspecified intellectual disabilities Dysarthria and anarthria Other specified mental disorders due to known physiological condition Diaphragmatic hernia without obstruction or gangrene Gastro-esophageal reflux disease without esophagitis Hypothyroidism, unspecified Peptic ulcer, site unspecified, unspecified as acute or chronic, without hemorrhage or perforation Unspecified dementia, unspecified severity, with anxiety Epilepsy, unspecified, not intractable, without status epilepticus Home Medications ???Medication ???Instructions ???Recorded ???Last Taken ???Type acetaminophen 325 mg tablet 650 mg PO DAILY PAIN 09/18/23 Unknown History albuterol sulfate 90 mcg/actuation 2 inh inhalation Q4H PRN shortness 09/18/23 Unknown History aerosol inhaler of breath or wheezing cholecalciferol (vitamin D3) 50 50 mcg PO DAILY 09/18/23 Unknown History mcg (2,000 unit) tablet docusate sodium 100 mg capsule 100 mg PO DAILY PRN constipation 09/18/23 Unknown History escitalopram oxalate 20 mg tablet 20 mg PO DAILY 09/18/23 Unknown History ethosuximide 250 mg capsule 250 mg PO (more content not included)... Normal [facility] HISTORY PHYSICALon HISTORY PHYSICAL HNO ID: [id number] Author: TAO STARR MD Service: Hospital Medicine Author Type: Physician Type: H&P Filed: 08/18/2024 06:03 Note Text: DEPARTMENT OF HOSPITAL MEDICINE HISTORY AND PHYSICAL EXAM SERVICE DATE: 08/17/2024 SERVICE TIME: 10:01 PM Primary Care Physician: Orville Mendoza, NIGHT AND WEEKEND COVERAGE: From 7am - 7pm, please call Sound After 7pm, please call cross cover pager #[phone] Subjective CHIEF COMPLAINT: Seizure HPI: This is a 79 year old female [place] resident, DNR [employer], with hx of MRDD, with HTN and a seizure history. Today she had a 10-15 min witnessed full body seizure. She was given Ativan 2 mg. She currently takes ethylsuccinate, dilantin, and valproic acid. Her family requested transfer to the ED and assessment by Neurology. She is afebrile and HD stable, 95% on RA. Admission labs pending. PAST MEDICAL HISTORY Diagnosis Date High blood pressure Seizures (HCC) PAST SURGICAL HISTORY Procedure Laterality Date COLONOSCOPY 03/31/2009 normal EGD 07/13/2016 abnormal LES,hiatal hernia, esophagitis and gastritis FAMILY HISTORY Problem Relation Age of Onset Breast Cancer Mother Social History Tobacco Use Smoking status: Never Smokeless tobacco: Never HOME MEDICATIONS: Prior to Admission Medications Prescriptions Last Dose Informant Patient Reported? Taking? Aluminum Hydrox-Magnesium Carb (GAVISCON EXTRA STRENGTH) 254-237.5 mg/5 mL susp Yes No Sig: Take by mouth. Cholecalciferol, Vitamin D3, (VITAMIN D-3) 2,000 unit cap Yes No Sig: Take by mouth. Light Mineral Oil-Mineral Oil (SOOTHE XP) 1-4.5 % drop Yes No Sig: Use in both eyes. PHENYTOIN SODIUM ORAL Yes No Sig: Take by mouth. acetaminophen (TYLENOL) 325 mg tablet Yes No Sig: Take 650 mg by mouth every 6 hours as needed. bisacodyl (DULCOLAX) 10 mg supp Yes No Si mg by RECTAL route once daily as needed. dext 70/polycarbophil/peg/NaC l (ARTIFICIAL TEAR SOLUTION OPHTHALMIC) Yes No Sig: Use in eyes. ethosuximide (ZARONTIN) 250 mg capsule Yes No Sig: twice daily. ethosuximide (ZARONTIN) 250 mg/5 mL solution Yes No Sig: Take 500 mg/kg/dose by mouth twice daily. ethosuximide (ZARONTIN) 250 mg/5 mL solution No No Sig: Take 20 mL by mouth twice daily. ethosuximide (ZARONTIN) 250 mg/5 mL solution No No Sig: TAKE 10ML BY MOUTH TWO TIMES DAILY Patient not taking: Reported on 09/01/2019 fluticasone (FLONASE) 50 mcg/actuation nasal spray Yes No guaifenesin/dextromethor tanner (ROBITUSSIN-DM ORAL) Yes No Sig: Take by mouth. loratadine (CLARITIN) 10 mg tablet Yes No Sig: Take 10 mg by mouth once daily. losartan potassium (LOSARTAN ORAL) Yes No Sig: Take 25 mg by mouth. magnesium hydroxide 2,400 mg/10 mL susp Yes No Sig: Take 10 mL by mouth once daily as needed. montelukast (SINGULAIR) 10 mg tablet Yes No pantoprazole DR (PROTONIX) 40 mg tablet Yes No Sig: Take 40 mg by mouth once daily. phenytoin (DILANTIN) 125 mg/5 mL susp No No Sig: Take 8 mL by mouth daily at bedtime. phenytoin ER (DILANTIN) 100 mg ER capsule Yes No Sig: Take 100 mg by mouth once daily. phenytoin chewable (DILANTIN) 50 mg tablet Yes No Sig: Take 50 mg by mouth once daily. phenytoin sodium extended (DILANTIN ORAL) Yes No Sig: Take by mouth. senna (SENNA) 8.6 mg tab Yes No Sig: Take 8.6 mg by mouth twice daily. sodium phosphate-sodium bisphosphate (FLEET ENEMA) enema Yes No Si Enema by RECTAL route one time only. valproic acid (DEPAKENE) 250 mg capsule Yes No Sig: Take 250 mg by mouth three times daily. 4 capsules (1000 mg) valproic acid (DEPAKENE) 250 mg/5 mL syrup No No Sig: Take 20 mL by mouth three times daily. Facility-Administered Medications: None ALLERGIES No Known Allergies REVIEW OF SYSTEM: All ROS are negative except those noted in HPI Objective PHYSICAL EXAM: BP 142/62 Pulse 70 Resp 18 Ht 5' 6" (1.68m) Wt 192 lb 3.9 oz (87.2kg) SpO2 95% BMI 31.04 kg/(m2). O2 Therapy: Room Air GENERAL: Alert, no distress SKIN: Warm, dry intact, no open lesions, no rash HEAD/SINUSES: Normocephalic, atraumatic, oral mucosa moist EYES: PERRLA, EOMI NECK: No jugulovenous distention, Supple, no adenopathy LUNGS: Lungs clear to auscultation, no wheezes, ronchi, or rales CARDIAC: RRR, Normal S1 and S2; no rubs, murmurs, or gallops ABDOMEN: Abdomen soft, non-tender, BS normal, No masses or organomegaly EXTREMITIES: Extremities normal, no deformities, edema, clubbing or skin discoloration. NEURO: Moves all 4 extremities DATA: Diagnostic tests reviewed for today's visit: Most recent labs and imaging results. CBC: No results for input(s): "WBC", "RBC", "HB", "HCT", "PLT", "MCV", "MCH", "MPV", "RDW" in the last 24 hours. Coags: No results for input(s): "PT", "INR", "APTT" in the last 24 hours. BMP: No results for input(s): "NA", "K", "CHLOR", "CO2", "BUN", "CREAT", "GLUC" in the last 24 hours. CMP: No results for input(s): "NA", "K", "CHLOR", "CO2", (more content not included)... Normal [facility] NURSING PROGon 08-17-2024 NURSING PROG HNO ID: [id number] Author: MCKINLEY DUNN, RN Service: Nursing Author Type: Registered Nurse Type: Nursing Progress Note Filed: 08/18/2024 01:29 Note Text: Other: Pt admitted from [place] [facility] via ems. Pt arouses to name called. Pt is not speaking. Pt siderails padded. Call light in reach. Bed low and alarm activated. Vss. No distress observed at this time. Normal [facility] Urinalysis, Completeon 08-17 EPI,SQUAMOUS 0-5 SEEN Normal 5-10 [facility] Comment on above: Order Comment: MEGHAN CTOR TO SPECIFY Performed By: #### L 400.0001 #### [facility] [address] [place], [address] BACTERIA 0 SEEN Normal None Seen [facility] Comment on above: Order Comment: MEGHAN CTOR TO SPECIFY Performed By: #### L 400.0001 #### [facility] [address] [place], [address] Mucus Ql (Urine sed) 0 SEEN Normal [facility] Comment on above: Order Comment: MEGHAN CTOR TO SPECIFY Performed By: #### L 400.0001 #### [facility] [address] [place], [address] RBC 0 SEEN Normal 0-5 [facility] Comment on above: Order Comment: MEGHAN CTOR TO SPECIFY Performed By: #### L 400.0001 #### [facility] [address] [place], [address] WBC 0 SEEN Normal 0-5 [facility] Comment on above: Order Comment: COLLE CTOR TO SPECIFY Performed By: #### L 400.0001 #### [facility] [address] [place], [address] Valproic Acid (Depakene) Matt reyna 08-17-2024 VALPROIC ACID 101 ug/mL High 50-100 [facility] Comment on above: Performed By: #### L 501.8100, L501.7700 #### [facility] [address] [place], [address] Basic Metabolic Profile (BMP )on 08-14-2024 BUN/CRE 20.9 RATIO High - [facility] Comment on above: Order Comment: 211.2 Performed By: #### L 100.0500, L500.2500 #### [facility] [address] [place], [address] CA,Total 9.1 mg/dL Normal 8.5-10.1 [facility] Comment on above: Order Comment: 211.2 Performed By: #### L 100.0500, L500.2500 #### [facility] [address] [place], [address] Chloride [Moles/Vol] 109 mmol/L High 98-107 [facility] Comment on above: Order Comment: 211.2 Performed By: #### L 100.0500, L500.2500 #### [facility] [address] [place], [address] CO2 [Moles/Vol] 25.0 mmol/L Normal 21.0-32.0 [facility] Comment on above: Order Comment: 211.2 Performed By: #### L 100.0500, L500.2500 #### [facility] [address] [place], [address] Creatinine [Mass/Vol] 0.81 mg/dL Normal 0.55-1.02 [facility] Comment on above: Order Comment: 211.2 Result Comment: The validity of the calculated GFR GFRAA in patients over 70 years has not been determined. Clinical correlation is essential. Performed By: #### L 100.0500, L500.2500 #### [facility] [address] [place], [address] EST GFR - AA 88 mL/min Normal >60 [facility] Comment on above: Order Comment: 211.2 Result Comment: Afri can Kyrgyz GFR Calc Performed By: #### L 100.0500, L500.2500 #### [facility] [address] [place], [address] GAP 6 Normal 5-15 [facility] Comment on above: Order Comment: 211.2 Performed By: #### L 100.0500, L500.2500 #### [facility] [address] [place], [address] GFR/1.73 sq M.predicted among non-blacks MDRD (S/P/Bld) [Vol rate/Area] 73 mL/min/{1.73_m2} Normal >60 [facility] Comment on above: Order Comment: 211.2 Result Comment: Non- GFR Calc Performed By: #### L 100.0500, L500.2500 #### [facility] [address] [place], [address] Glucose [Mass/Vol] 93 mg/dL Normal 74-106 [facility] Comment on above: Order Comment: 211.2 Performed By: #### L 100.0500, L500.2500 #### [facility] [address] [place], [address] Potassium [Moles/Vol] 4.4 mmol/L Normal 3.5-5.1 [facility] Comment on above: Order Comment: 211.2 Performed By: #### L 100.0500, L500.2500 #### [facility] [address] [place], [address] Sodium [Moles/Vol] 140 mmol/L Normal 136-145 [facility] Comment on above: Order Comment: 211.2 Performed By: #### L 100.0500, L500.2500 #### [facility] [address] [place], [address] Urea nitrogen [Mass/Vol] 17 mg/dL Normal 7-18 [facility] Comment on above: Order Comment: 211.2 Performed By: #### L 100.0500, L500.2500 #### [facility] [address] [place], [address] CBC-Complete Blood Cnt No Di ffon 08-14-2024 Erythrocyte distribution width (RBC) [Ratio] 13.7 % Normal 11.6-14.6 [facility] Comment on above: Order Comment: 211.2 Performed By: #### L 100.0500, L500.2500 #### [facility] [address] [place], [address] Hematocrit (Bld) [Volume fraction] 36.1 % Low 37-47 [facility] Comment on above: Order Comment: 211.2 Performed By: #### L 100.0500, L500.2500 #### [facility] [address] [place], [address] Hemoglobin (Bld) [Mass/Vol] 11.9 g/dL Low 12.0-15.0 [facility] Comment on above: Order Comment: 211.2 Performed By: #### L 100.0500, L500.2500 #### [facility] [address] [place], [address] MCH (RBC) [Entitic mass] 30.4 pg Normal 27.0-32.0 [facility] Comment on above: Order Comment: 211.2 Performed By: #### L 100.0500, L500.2500 #### [facility] [address] [place], [address] MCHC (RBC) [Mass/Vol] 33.0 g/dL Normal 32-36 [facility] Comment on above: Order Comment: 211.2 Performed By: #### L 100.0500, L500.2500 #### [facility] [address] [place], [address] MCV (RBC) [Entitic vol] 92.3 fL Normal 81-99 [facility] Comment on above: Order Comment: 211.2 Performed By: #### L 100.0500, L500.2500 #### [facility] [address] [place], [address] Platelet mean volume (Bld) [Entitic vol] 11.8 fL Normal 6.2-12.0 [facility] Comment on above: Order Comment: 211.2 Performed By: #### L 100.0500, L500.2500 #### [facility] [address] [place] [place], [address] Platelets (Bld) [#/Vol] 168 10*3/uL Normal 150-450 [facility] Comment on above: Order Comment: 211.2 Performed By: #### L 100.0500, L500.2500 #### [facility] [address] [place], [address] RBC (Bld) [#/Vol] 3.91 10*6/uL Low 4.2-5.4 [facility] Comment on above: Order Comment: 211.2 Performed By: #### L 100.0500, L500.2500 #### [facility] [address] [place], [address] RDW SD 46.5 fl High 35.1-43.9 [facility] Comment on above: Order Comment: 211.2 Performed By: #### L 100.0500, L500.2500 #### [facility] [address] [place], [address] WBC (Bld) [#/Vol] 5.4 10*3/uL Normal 4.4-11.0 [facility] Comment on above: Order Comment: Performed By: #### L 100.0500, L500.2500 #### [facility] [address] [place], [address] Valproic Acid (Depakene) Lev maribell 08-06-2024 VALPROIC ACID 94 ug/mL Normal 50-100 [facility] Comment on above: Order Comment: Performed By: #### L 100.0100, L501.8100, L501.7700, L500.4050 #### [facility] [address] [place], [address] CBC W/Diff, Automatedon 06-16 Absolute Lymph 2.80 X10 3/uL Normal 0.83-4.51 [facility] Comment on above: Order Comment: . 0000 Performed By: #### L 501.8100, L501.7700 #### [facility] [address] [place], [address] Absolute Neut 3.5 X10 3/uL Normal 2.0-7.7 [facility] Comment on above: Order Comment: . 0000 Performed By: #### L 501.8100, L501.7700 #### [facility] [address] [place], [address] Basophils/100 WBC (Bld) 1.1 % High 0-1 [facility] Comment on above: Order Comment: 211.2 0000 Performed By: #### L 501.8100, L501.7700 #### [facility] [address] [place], [address] Eosinophils/100 WBC (Bld) 1.8 % Normal 0-5 [facility] Comment on above: Order Comment: 211.2 0000 Performed By: #### L 501.8100, L501.7700 #### [facility] [address] [place], [address] Erythrocyte distribution width (RBC) [Ratio] 13.4 % Normal 11.6-14.6 [facility] Comment on above: Order Comment: . 0000 Performed By: #### L 501.8100, L501.7700 #### [facility] [address] [place], [address] Hematocrit (Bld) [Volume fraction] 35.9 % Low 37-47 [facility] Comment on above: Order Comment: . 0000 Performed By: #### L 501.8100, L501.7700 #### [facility] [address] [place], [address] Hemoglobin (Bld) [Mass/Vol] 11.3 g/dL Low 12.0-15.0 [facility] Comment on above: Order Comment: . 0000 Performed By: #### L 501.8100, L501.7700 #### [facility] [address] [place], [address] IG% 0.300 Normal 0.0-0.9 [facility] Comment on above: Order Comment: . 0000 Result Comment: IG% - Immature Granulocytes (promyelocytes, myelocytes and metamyelocytes) > 1% indicates that a LEFT SHIFT is Present. Performed By: #### L 501.8100, L501.7700 #### [facility] [address] [place], [address] Lymphocytes/100 WBC (Bld) 38.8 % Normal 19-41 [facility] Comment on above: Order Comment: . 0000 Performed By: #### L 501.8100, L501.7700 #### [facility] [address] [place], [address] MCH (RBC) [Entitic mass] 29.7 pg Normal 27.0-32.0 [facility] Comment on above: Order Comment: 211. 0000 Performed By: #### L 501.8100, L501.7700 #### [facility] [address] [place], [address] MCHC (RBC) [Mass/Vol] 31.5 g/dL Low 32-36 [facility] [facility] Comment on above: Order Comment: . Performed By: #### L 501.8100, L501.7700 #### [facility] [address] [place], [address] MCV (RBC) [Entitic vol] 94.2 fL Normal 81-99 [facility] Comment on above: Order Comment: Performed By: #### L 501.8100, L501.7700 #### [facility] [address] [place], [address] Monocytes/100 WBC (Bld) 9.6 % Normal 0-10 [facility] Comment on above: Order Comment: . Performed By: #### L 501.8100, [id number] #### [facility] [address] [place], [address] Neutrophils/100 WBC (Bld) 48.4 % Normal 47-70 [facility] Comment on above: Order Comment: . Performed By: #### L 501.8100, [id number] #### [facility] [address] [place], [address] Nucleated RBC (Bld) [#/Vol] 0 10*3/uL Normal 0-5 [facility] Comment on above: Order Comment: . Performed By: #### L 501.8100, L501.7700 #### [facility] [address] [place], [address] Platelet mean volume (Bld) [Entitic vol] 12.0 fL Normal 6.2-12.0 [facility] Comment on above: Order Comment: . 0000 Performed By: #### L 501.8100, L501.7700 #### [facility] [address] [place], [address] Platelets (Bld) [#/Vol] 170 10*3/uL Normal 150-450 [facility] Comment on above: Order Comment: . 0000 Performed By: #### L 501.8100, L501.7700 #### [facility] [address] [place], [address] RBC (Bld) [#/Vol] 3.81 10*6/uL Low 4.2-5.4 [facility] Comment on above: Order Comment: . 0000 Performed By: #### L 501.8100, [id number] #### [facility] [address] [place], [address] RDW SD 46.4 fl High 35.1-43.9 [facility] Comment on above: Order Comment: . 0000 Performed By: #### L 501.8100, [id number] #### [facility] [address] [place], [address] WBC (Bld) [#/Vol] 7.2 10*3/uL Normal 4.4-11.0 [facility] Comment on above: Order Comment: . 0000 Performed By: #### L 501.8100, L501.7700 #### [facility] [address] [place], [address] Comprehensive Metabolic Prof ilon 07-07-2024 Albumin [Mass/Vol] 3.1 g/dL Low 3.2-5.0 [facility] Comment on above: Order Comment: 211. 0000 Performed By: #### L 501.8100, [id number] #### [facility] [address] [place], [address] Albumin/Globulin [Mass ratio] 0.8 {ratio} Low 0.9-2.4 [facility] Comment on above: Order Comment: Performed By: #### L 501.8100, L501.7700 #### [facility] [address] [place], [address] ALK P 105 U/L Normal 45-117 [facility] Comment on above: Order Comment: Performed By: #### L 501.8100, [id number] #### [facility] [address] [place], [address] ALT [Catalytic activity/Vol] 17 U/L Normal 13-56 [facility] Comment on above: Order Comment: Performed By: #### L 501.8100, L501.7700 #### [facility] [address] [place], [address] AST [Catalytic activity/Vol] 19 U/L Normal 15-37 [facility] Comment on above: Order Comment: Performed By: #### L 501.8100, [id number] #### [facility] [address] [place], [address] Bilirubin [Mass/Vol] 0.20 mg/dL Normal 0.20-1.00 [facility] Comment on above: Order Comment: Result Comment: For patients on eltrombopag therapy, use of Dimension [place] TBIL is not recommended. Performed By: #### L 501.8100, L501.7700 #### [facility] [address] [place], [address] BUN/CRE 27.0 RATIO High 10-20 [facility] Comment on above: Order Comment: Performed By: #### L 501.8100, [id number] #### [facility] [address] [place], [address] CA,Total 9.3 mg/dL Normal 8.5-10.1 [facility] Comment on above: Order Comment: Performed By: #### L 501.8100, [id number] #### [facility] [address] [place], [address] Chloride [Moles/Vol] 108 mmol/L High 98-107 [facility] Comment on above: Order Comment: Performed By: #### L 501.8100, [id number] #### [facility] [address] [place], [address] CO2 [Moles/Vol] 27.0 mmol/L Normal 21.0-32.0 [facility] Comment on above: Order Comment: Performed By: #### L 501.8100, [id number] #### [facility] [address] [place], [address] Creatinine [Mass/Vol] 0.70 mg/dL Normal 0.55-1.02 [facility] Comment on above: Order Comment: Result Comment: The validity of the calculated GFR GFRAA in patients over 70 years has not been determined. Clinical correlation is essential. Performed By: #### L 501.8100, L501.7700 #### [facility] [address] [place], [address] EST GFR - AA 104 mL/min Normal >60 [facility] Comment on above: Order Comment: Result Comment: Afri can Kyr[place]z GFR Calc Performed By: #### L 501.8100, [id number] #### [facility] [address] [place], [address] GAP 6 Normal 5-15 [facility] Comment on above: Order Comment: Performed By: #### L 501.8100, [id number] #### [facility] [address] [place], [address] GFR/1.73 sq M.predicted among non-blacks MDRD (S/P/Bld) [Vol rate/Area] 86 mL/min/{1.73_m2} Normal >60 [facility] Comment on above: Order Comment: . Result Comment: Non- GFR Calc Performed By: #### L 501.8100, L501.7700 #### [facility] [address] [place], [address] Globulin (S) [Mass/Vol] 3.8 g/dL Normal 2.2-4.2 [facility] Comment on above: Order Comment: Performed By: #### L 501.8100, [id number] #### [facility] [address] [place], [address] Glucose [Mass/Vol] 91 mg/dL Normal 74-106 [facility] Comment on above: Order Comment: Performed By: #### L 501.8100, [id number] #### [facility] [address] [place], [address] Potassium [Moles/Vol] 4.5 mmol/L Normal 3.5-5.1 [facility] Comment on above: Order Comment: . 0000 Performed By: #### L 501.8100, [id number] #### [facility] [address] [place], [address] Sodium [Moles/Vol] 141 mmol/L Normal 136-145 [facility] Comment on above: Order Comment: . Performed By: #### L 501.8100, [id number] #### [facility] [address] [place], [address] T PROT 6.9 g/dL Normal 6.4-8.2 [facility] Comment on above: Order Comment: . 0000 Performed By: #### L 501.8100, [id number] #### [facility] [address] [place], [address] Urea nitrogen [Mass/Vol] 19 mg/dL High 7-18 [facility] Comment on above: Order Comment: Performed By: #### L 501.8100, [id number] #### [facility] [address] [place], [address] Phenytoin (Dilantin) Levelon 07-07-2024 PHENYTOIN 7.1 mL Low 10.0-20.0 [facility] Comment on above: Order Comment: Performed By: #### L 501.8100, [id number] #### [facility] [address] [place], [address] Valproic Acid (Depakene) Lev maribell 07-07-2024 VALPROIC ACID 103 ug/mL High 50-100 [facility] Comment on above: Order Comment: Performed By: #### L 501.8100, [id number] #### [facility] [address] [place], [address] Potassiumon 04-21-2024 Potassium [Moles/Vol] 4.2 mmol/L Normal 3.5-5.1 [facility] Comment on above: Performed By: #### L 100.0100, L501.8100, L501.7700, L500.4050 #### [facility] [address] [place], [address] CBC W/Diff, Automatedon 07-0 Absolute Lymph 2.60 X10 3/uL Normal 0.83-4.51 [facility] Comment on above: Order Comment: Performed By: #### L 501.8100, [id number] #### [facility] [address] [place], [address] Absolute Neut 3.0 X10 3/uL Normal 2.0-7.7 [facility] Comment on above: Order Comment: Performed By: #### L 501.8100, [id number] #### [facility] [address] [place], [address] Basophils/100 WBC (Bld) 0.9 % Normal 0-1 [facility] Comment on above: Order Comment: Performed By: #### L 501.8100, [id number] #### [facility] [address] [place], [address] Eosinophils/100 WBC (Bld) 2.1 % Normal 0-5 [facility] Comment on above: Order Comment: Performed By: #### L 501.8100, [id number] #### [facility] [address] [place], [address] Erythrocyte distribution width (RBC) [Ratio] 13.3 % Normal 11.6-14.6 [facility] Comment on above: Order Comment: Performed By: #### L 501.8100, [id number] #### [facility] [address] [place], [address] Hematocrit (Bld) [Volume fraction] 34.2 % Low 37-47 [facility] Comment on above: Order Comment: Performed By: #### L 501.8100, [id number] #### [facility] [address] [place], [address] Hemoglobin (Bld) [Mass/Vol] 11.1 g/dL Low 12.0-15.0 [facility] Comment on above: Order Comment: Performed By: #### L 501.8100, [id number] #### [facility] [address] [place], [address] IG% 0.300 Normal 0.0-0.9 [facility] Comment on above: Order Comment: 211.2 0000 Result Comment: IG% - Immature Granulocytes (promyelocytes, myelocytes and metamyelocytes) > 1% indicates that a LEFT SHIFT is Present. Performed By: #### L 501.8100, L501.7700 #### [facility] [address] [place], [address] Lymphocytes/100 WBC (Bld) 39.2 % Normal 19-41 [facility] Comment on above: Order Comment: . 0000 Performed By: #### L 501.8100, [id number] #### [facility] [address] [place], [address] MCH (RBC) [Entitic mass] 30.7 pg Normal 27.0-32.0 [facility] Comment on above: Order Comment: . 0000 Performed By: #### L 501.8100, [id number] #### [facility] [address] [place], [address] MCHC (RBC) [Mass/Vol] 32.5 g/dL Normal 32-36 [facility] Comment on above: Order Comment: . 0000 Performed By: #### L 501.8100, [id number] #### [facility] [address] [place], [address] MCV (RBC) [Entitic vol] 94.7 fL Normal 81-99 [facility] Comment on above: Order Comment: . 0000 Performed By: #### L 501.8100, [id number] #### [facility] [address] [place], [address] Monocytes/100 WBC (Bld) 11.6 % High 0-10 [facility] Comment on above: Order Comment: 211. 0000 Performed By: #### L 501.8100, [id number] #### [facility] [address] [place], [address] Neutrophils/100 WBC (Bld) 45.9 % Low 47-70 [facility] Comment on above: Order Comment: 211. 0000 Performed By: #### L 501.8100, [id number] #### [facility] [address] [place], [address] Nucleated RBC (Bld) [#/Vol] 0 10*3/uL Normal 0-5 [facility] Comment on above: Order Comment: 211. 0000 Performed By: #### L 501.8100, [id number] #### [facility] [address] [place], [address] Platelet mean volume (Bld) [Entitic vol] 12.0 fL Normal 6.2-12.0 [facility] Comment on above: Order Comment: . 0000 Performed By: #### L 501.8100, [id number] #### [facility] [address] [place], [address] Platelets (Bld) [#/Vol] 178 10*3/uL Normal 150-450 [facility] Comment on above: Order Comment: . 0000 Performed By: #### L 501.8100, [id number] #### [facility] [address] [place], [address] RBC (Bld) [#/Vol] 3.61 10*6/uL Low 4.2-5.4 [facility] Comment on above: Order Comment: 211. 0000 Performed By: #### L 501.8100, [id number] #### [facility] [address] [place], [address] RDW SD 46.5 fl High 35.1-43.9 [facility] Comment on above: Order Comment: 211. 0000 Performed By: #### L 501.8100, [id number] #### [facility] [address] [place], [address] WBC (Bld) [#/Vol] 6.6 10*3/uL Normal 4.4-11.0 [facility] Comment on above: Order Comment: 211. 0000 Performed By: #### L 501.8100, [id number] #### [facility] [address] [place], [address] Comprehensive Metabolic Prof ilon 04-14-2024 Albumin [Mass/Vol] 3.1 g/dL Low 3.2-5.0 [facility] Comment on above: Order Comment: . 0000 Performed By: #### L 501.8100, [id number] #### [facility] [address] [place], [address] Albumin/Globulin [Mass ratio] 0.8 {ratio} Low 0.9-2.4 [facility] Comment on above: Order Comment: 211. 0000 Performed By: #### L 501.8100, [id number] #### [facility] [address] [place], [address] ALK P 107 U/L Normal 45-117 [facility] Comment on above: Order Comment: . 0000 Performed By: #### L 501.8100, [id number] #### [facility] [address] [place], [address] ALT [Catalytic activity/Vol] 16 U/L Normal 13-56 [facility] Comment on above: Order Comment: 211. 0000 Performed By: #### L 501.8100, [id number] #### [facility] [address] [place], [address] AST [Catalytic activity/Vol] 15 U/L Normal 15-37 [facility] Comment on above: Order Comment: 211. 0000 Performed By: #### L 501.8100, [id number] #### [facility] [address] [place], [address] Bilirubin [Mass/Vol] 0.30 mg/dL Normal 0.20-1.00 [facility] Comment on above: Order Comment: . Result Comment: For patients on eltrombopag therapy, use of Dimension [place] TBIL is not recommended. Performed By: #### L 501.8100, [id number] #### [facility] [address] [place], [address] BUN/CRE 27.0 RATIO High 10-20 [facility] Comment on above: Order Comment: Performed By: #### L 501.8100, [id number] #### [facility] [address] [place], [address] CA,Total 9.2 mg/dL Normal 8.5-10.1 [facility] Comment on above: Order Comment: Performed By: #### L 501.8100, [id number] #### [facility] [address] [place], [address] Chloride [Moles/Vol] 108 mmol/L High 98-107 [facility] Comment on above: Order Comment: Performed By: #### L 501.8100, [id number] #### [facility] [address] [place], [address] CO2 [Moles/Vol] 27.0 mmol/L Normal 21.0-32.0 [facility] Comment on above: Order Comment: Performed By: #### L 501.8100, [id number] #### [facility] [address] [place], [address] Creatinine [Mass/Vol] 0.70 mg/dL Normal 0.55-1.02 [facility] Comment on above: Order Comment: . Result Comment: The validity of the calculated GFR GFRAA in patients over 70 years has not been determined. Clinical correlation is essential. Performed By: #### L 501.8100, [id number] #### [facility] [address] [place], [address] EST GFR - AA 104 mL/min Normal >60 [facility] Comment on above: Order Comment: Result Comment: Afri can Kyr[place]z GFR Calc Performed By: #### L 501.8100, [id number] #### [facility] [address] [place], [address] GAP 4 Low 5-15 [facility] Comment on above: Order Comment: Performed By: #### L 501.8100, [id number] #### [facility] [address] [place], [address] GFR/1.73 sq M.predicted among non-blacks MDRD (S/P/Bld) [Vol rate/Area] 86 mL/min/{1.73_m2} Normal >60 [facility] Comment on above: Order Comment: Result Comment: Non- GFR Calc Performed By: #### L 501.8100, [id number] #### [facility] [address] [place], [address] Globulin (S) [Mass/Vol] 3.8 g/dL Normal 2.2-4.2 [facility] Comment on above: Order Comment: Performed By: #### L 501.8100, [id number] #### [facility] [address] [place], [address] Glucose [Mass/Vol] 91 mg/dL Normal 74-106 [facility] Comment on above: Order Comment: Performed By: #### L 501.8100, [id number] #### [facility] [address] [place], [address] Potassium [Moles/Vol] 5.2 mmol/L High 3.5-5.1 [facility] Comment on above: Order Comment: . 0000 Performed By: #### L 501.8100, [id number] #### [facility] [address] [place], [address] Sodium [Moles/Vol] 139 mmol/L Normal 136-145 [facility] Comment on above: Order Comment: 211. 0000 Performed By: #### L 501.8100, [id number] #### [facility] [address] [place], [address] T PROT 6.9 g/dL Normal 6.4-8.2 [facility] Comment on above: Order Comment: . 0000 Performed By: #### L 501.8100, [id number] #### [facility] [address] [place], [address] Urea nitrogen [Mass/Vol] 19 mg/dL High 7-18 [facility] Comment on above: Order Comment: . 0000 Performed By: #### L 501.8100, [id number] #### [facility] [address] [place], [address] Phenytoin (Dilantin) Levelon 04-14-2024 PHENYTOIN 6.6 mL Low 10.0-20.0 [facility] Comment on above: Order Comment: 211. 0000 Performed By: #### L 501.8100, [id number] #### [facility] [address] [place], [address] Valproic Acid (Depakene) Lev maribell 04-14-2024 VALPROIC ACID 99 ug/mL Normal 50-100 [facility] Comment on above: Order Comment: 211. 0000 Performed By: #### L 501.8100, [id number] #### [facility] [address] [place], [address] No Panel InformationOrdered By: Todd Velasquez on 11-05-2023 Valproic Acid (Depakene) Level 95 ug/mL 50-100 [facility] Absolute lymphocyte countOrd ered By: Todd Velasquez on 10-29-2023 Lymphocytes Auto (Unsp spec) [#/Vol] 2.23 10*3/uL 0.83-4.51 [facility] Basophil percentageOrdered B y: Todd Velasquez on 10-29-2023 Basophils/100 WBC (Bld) 0.7 % 0-1 [facility] Bilirubin [Mass/Vol] 0.40 mg/dL 0.20-1.00 [facility] Comment on above: For patients on eltr ombopag therapy, use of Dimension [place] TBIL is not recommended. Chloride [Moles/Vol] 106 mmol/L 98-107 [facility] Eosinophils/100 WBC (Bld) 1.6 % 0-5 [facility] Glucose [Mass/Vol] 88 mg/dL 74-106 [facility] Neutrophils (Bld) [#/Vol] 4.7 10*3/uL 2.0-7.7 [facility] Neutrophils/100 WBC (Bld) 58.1 % 47-70 [facility] Potassium [Moles/Vol] 4.3 mmol/L 3.5-5.1 [facility] Protein [Mass/Vol] 7.0 g/dL 6.4-8.2 [facility] Sodium [Moles/Vol] 139 mmol/L 136-145 [facility] WBC (Bld) [#/Vol] 8.1 10*3/uL 4.4-11.0 [facility] Blood erythrocytes count (nu mber/volume)Ordered By: Todd Velasquez on 10-29-2023 RBC (Bld) [#/Vol] 3.91 10*6/uL 4.2-5.4 [facility] Blood hemoglobin measurement (mass/volume)Ordered By: Todd Velasquez on 10-29-2023 Hemoglobin (Bld) [Mass/Vol] 12.1 g/dL 12.0-15.0 [facility] Blood lymphocytes/100 leukoc ytesOrdered By: Todd Velasquez on 10-29-2023 Lymphocytes/100 WBC (Bld) 27.7 % 19-41 [facility] Blood monocytes/100 leukocyt esOrdered By: Todd Velasquez on 10-29-2023 Monocytes/100 WBC (Bld) 11.4 % 0-10 [facility] Blood platelet mean volumeOr dered By: Todd Velasquez on 10-29-2023 Platelet mean volume (Bld) [Entitic vol] 11.4 fL 6.2-12.0 [facility] Determination of erythrocyte mean corpuscular volume (MCV)Ordered By: Todd Velasquez on 10-29-2023 MCV (RBC) [Entitic vol] 93.9 fL 81-99 [facility] Hematocrit Auto (Bld) [Volum e fraction]Ordered By: Todd Velasquez on 10-29-2023 Hematocrit (Bld) [Volume fraction] 36.7 % 37-47 [facility] - Chemistry and C hemistry - challengeOrdered By: Todd Velasquez on 10-29-2023 ALP [Catalytic activity/Vol] 103 U/L 45-117 [facility] ALT [Catalytic activity/Vol] 12 U/L 13-56 [facility] CO2 [Moles/Vol] 26.0 mmol/L 21.0-32.0 [facility] Globulin (S) [Mass/Vol] 3.8 g/dL 2.2-4.2 [facility] Urea nitrogen/Creatinine [Mass ratio] 18.9 mg/mg 10-20 [facility] - Hematology and Cell countsOrdered By: Todd Velasquez on 10-29-2023 Erythrocyte distribution width (RBC) [Entitic vol] 44.3 fL 35.1-43.9 [facility] Erythrocyte distribution width (RBC) [Ratio] 13.0 % 11.6-14.6 [facility] Immature granulocytes/100 WBC (Bld) 0.500 % 0.0-0.9 [facility] Comment on above: IG% - Immature Granu locytes (promyelocytes, myelocytes and metamyelocytes) > 1% indicates that a LEFT SHIFT is Present. MCH (RBC) [Entitic mass] 30.9 pg 27.0-32.0 [facility] Nucleated RBC/100 WBC (Bld) [Ratio] 0 % 0-5 [facility] MCHC Auto (RBC) [Mass/Vol]Or dered By: Todd Velasquez on 10-29-2023 MCHC (RBC) [Mass/Vol] 33.0 g/dL 32-36 [facility] No Panel InformationOrdered By: Todd Velasquez on 10-29-2023 Estimated GFR (MDRD) Amer 107 mL/min >60 [facility] Comment on above: GFR Calc Estimated GFR (MDRD) Non-Af Amer 88 mL/min >60 [facility] Comment on above: Non- GFR Calc Valproic Acid (Depakene) Level 116 ug/mL 50-100 [facility] Platelets bldOrdered By: Ignacia Velasquez on 10-29-2023 Platelets (Bld) [#/Vol] 194 10*3/uL 150-450 [facility] Serum or plasma albumin jacob urement (mass/volume)Ordered By: Todd Velasquez on 10-29-2023 Albumin [Mass/Vol] 3.2 g/dL 3.2-5.0 [facility] Serum or plasma albumin/glob ulin mass ratioOrdered By: Todd Velasquez on 10-29-2023 Albumin/Globulin [Mass ratio] 0.8 {ratio} 0.9-2.4 [facility] Serum or plasma calcium jacob urement (mass/volume)Ordered By: Todd Velasquez on 10-29-2023 Calcium [Mass/Vol] 9.2 mg/dL 8.5-10.1 [facility] Serum or plasma creatinine m easurement (mass/volume)Ordered By: Todd Velasquez on 10-29-2023 Creatinine [Mass/Vol] 0.69 mg/dL 0.55-1.02 [facility] Comment on above: The validity of the calculated GFR & GFRAA in patients over 70 years has not been determined. Clinical correlation is essential. Serum or plasma phenytoin me asurement (mass/volume)Ordered By: Todd Velasquez on 10-29-2023 Phenytoin [Mass/Vol] 7.4 mL 10.0-20.0 [facility] Serum or plasma urea nitroge n measurement (mass/volume)Ordered By: Todd Velasquez on 10-29-2023 Urea nitrogen [Mass/Vol] 13 mg/dL 7-18 [facility] Thin prep Papanicolaou smear with manual screeningOrdered By: Todd Velasquez on 10-29-2023 Thin prep Papanicolaou smear with manual screening 19 U/L 15-37 [facility] Thin prep Papanicolaou smear with manual screening 7 5-15 [facility] Serum or plasma phenytoin me asurement (mass/volume)Ordered By: Todd Velasquez on 09-25-2023 Phenytoin [Mass/Vol] 9.6 mL 10.0-20.0 [facility] Absolute lymphocyte countOrd ered By: Kee Amezquita on 09-18-2023 Lymphocytes Auto (Unsp spec) [#/Vol] 1.37 10*3/uL 0.83-4.51 [facility] Basophil percentageOrdered B y: Kee Amezquita on 09-18-2023 Basophils/100 WBC (Bld) 1.0 % 0-1 [facility] Chloride [Moles/Vol] 106 mmol/L 98-107 [facility] Eosinophils/100 WBC (Bld) 1.6 % 0-5 [facility] Glucose [Mass/Vol] 107 mg/dL 74-106 [facility] Comment on above: Fasting Glucose resu lt from 100 to 125 mg/dL suggests IMPAIRED HOMEOSTASIS per A.D.A. criteria. Neutrophils (Bld) [#/Vol] 3.7 10*3/uL 2.0-7.7 [facility] Neutrophils/100 WBC (Bld) 64.8 % 47-70 [facility] Potassium [Moles/Vol] 4.0 mmol/L 3.5-5.1 [facility] Sodium [Moles/Vol] 138 mmol/L 136-145 [facility] WBC (Bld) [#/Vol] 5.7 10*3/uL 4.4-11.0 [facility] Blood erythrocytes count (nu mber/volume)Ordered By: Kee Amezquita on 09-18-2023 RBC (Bld) [#/Vol] 4.37 10*6/uL 4.2-5.4 [facility] Blood hemoglobin measurement (mass/volume)Ordered By: Kee Amezquita on 09-18-2023 Hemoglobin (Bld) [Mass/Vol] 13.4 g/dL 12.0-15.0 [facility] Blood lymphocytes/100 leukoc ytesOrdered By: Kee Amezquita on 09-18-2023 Lymphocytes/100 WBC (Bld) 23.9 % 19-41 [facility] Blood monocytes/100 leukocyt esOrdered By: Kee Amezquita on 09-18-2023 Monocytes/100 WBC (Bld) 8.0 % 0-10 [facility] Blood platelet mean volumeOr dered By: Kee Amezquita on 09-18-2023 Platelet mean volume (Bld) [Entitic vol] 10.9 fL 6.2-12.0 [facility] Determination of erythrocyte mean corpuscular volume (MCV)Ordered By: Kee Amezquita on 09-18-2023 MCV (RBC) [Entitic vol] 93.8 fL 81-99 [facility] Hematocrit Auto (Bld) [Volum e fraction]Ordered By: Kee Amezquita on 09-18-2023 Hematocrit (Bld) [Volume fraction] 41.0 % 37-47 [facility] - Chemistry and C hemistry - challengeOrdered By: Kee Amezquita on 09-18-2023 CO2 [Moles/Vol] 26.0 mmol/L 21.0-32.0 [facility] Urea nitrogen/Creatinine [Mass ratio] 16.6 mg/mg 10-20 [facility] - Hematology and Cell countsOrdered By: Kee Amezquita on 09-18-2023 Erythrocyte distribution width (RBC) [Entitic vol] 43.6 fL 35.1-43.9 [facility] Erythrocyte distribution width (RBC) [Ratio] 12.5 % 11.6-14.6 [facility] Immature granulocytes/100 WBC (Bld) 0.700 % 0.0-0.9 [facility] Comment on above: IG% - Immature Granu locytes (promyelocytes, myelocytes and metamyelocytes) > 1% indicates that a LEFT SHIFT is Present. MCH (RBC) [Entitic mass] 30.7 pg 27.0-32.0 [facility] Nucleated RBC/100 WBC (Bld) [Ratio] 0 % 0-5 [facility] MCHC Auto (RBC) [Mass/Vol]Or dered By: Kee Amezquita on 09-18-2023 MCHC (RBC) [Mass/Vol] 32.7 g/dL 32-36 [facility] No Panel InformationOrdered By: Kee Amezquita on 09-18-2023 Estimated Creatinine Clearance Calc 41.33 ml/min [facility] Estimated GFR (MDRD) Amer 92 mL/min >60 [facility] Comment on above: GFR Calc Estimated GFR (MDRD) Non-Af Amer 76 mL/min >60 [facility] Comment on above: Non- GFR Calc Valproic Acid (Depakene) Level 70 ug/mL 50-100 [facility] Platelets bldOrdered By: Praneeth Amezquita on 09-18-2023 Platelets (Bld) [#/Vol] 210 10*3/uL 150-450 [facility] Serum or plasma calcium jacob urement (mass/volume)Ordered By: Kee Amezquita on 09-18-2023 Calcium [Mass/Vol] 9.1 mg/dL 8.5-10.1 [facility] Serum or plasma creatinine m easurement (mass/volume)Ordered By: Kee Amezquita on 09-18-2023 Creatinine [Mass/Vol] 0.78 mg/dL 0.55-1.02 [facility] Comment on above: The validity of the calculated GFR & GFRAA in patients over 70 years has not been determined. Clinical correlation is essential. Serum or plasma phenytoin me asurement (mass/volume)Ordered By: Kee Amezquita on 09-18-2023 Phenytoin [Mass/Vol] 9.6 mL 10.0-20.0 [facility] Serum or plasma urea nitroge n measurement (mass/volume)Ordered By: Kee Amezquita on 09-18-2023 Urea nitrogen [Mass/Vol] 13 mg/dL 7-18 [facility] Thin prep Papanicolaou smear with manual screeningOrdered By: Kee Amezquita on 09-18-2023 Thin prep Papanicolaou smear with manual screening 6 5-15 [facility] No Panel InformationOrdered By: Todd Velasquez on 08-15-2023 Valproic Acid (Depakene) Level 91 ug/mL 50-100 [facility] Serum or plasma phenytoin me asurement (mass/volume)Ordered By: Todd Velasquez on 08-15-2023 Phenytoin [Mass/Vol] 8.2 mL 10.0-20.0 [facility] Absolute lymphocyte countOrd ered By: Todd Velasquez on 08-06-2023 Lymphocytes Auto (Unsp spec) [#/Vol] 2.35 10*3/uL 0.83-4.51 [facility] Basophil percentageOrdered B y: Todd Velasquez on 08-06-2023 Basophils/100 WBC (Bld) 0.8 % 0-1 [facility] Bilirubin [Mass/Vol] 0.40 mg/dL 0.20-1.00 [facility] Comment on above: For patients on eltr ombopag therapy, use of [place] TBIL is not recommended. Chloride [Moles/Vol] 108 mmol/L 98-107 [facility] Eosinophils/100 WBC (Bld) 2.1 % 0-5 [facility] Glucose [Mass/Vol] 90 mg/dL 74-106 [facility] Neutrophils (Bld) [#/Vol] 3.0 10*3/uL 2.0-7.7 [facility] Neutrophils/100 WBC (Bld) 48.5 % 47-70 [facility] Potassium [Moles/Vol] 4.5 mmol/L 3.5-5.1 [facility] Protein [Mass/Vol] 6.7 g/dL 6.4-8.2 [facility] Sodium [Moles/Vol] 140 mmol/L 136-145 [facility] WBC (Bld) [#/Vol] 6.2 10*3/uL 4.4-11.0 [facility] Blood erythrocytes count (nu mber/volume)Ordered By: Todd Velasquez on 08-06-2023 RBC (Bld) [#/Vol] 3.90 10*6/uL 4.2-5.4 [facility] Blood hemoglobin measurement (mass/volume)Ordered By: Todd Velasquez on 08-06-2023 Hemoglobin (Bld) [Mass/Vol] 12.1 g/dL 12.0-15.0 [facility] Blood lymphocytes/100 leukoc ytesOrdered By: Todd Velasquez on 08-06-2023 Lymphocytes/100 WBC (Bld) 38.0 % 19-41 [facility] Blood monocytes/100 leukocyt esOrdered By: Todd Velasquez on 08-06-2023 Monocytes/100 WBC (Bld) 10.3 % 0-10 [facility] Blood platelet mean volumeOr dered By: Todd Velasquez on 08-06-2023 Platelet mean volume (Bld) [Entitic vol] 11.8 fL 6.2-12.0 [facility] Determination of erythrocyte mean corpuscular volume (MCV)Ordered By: Todd Velasquez on 08-06-2023 MCV (RBC) [Entitic vol] 95.9 fL 81-99 [facility] Hematocrit Auto (Bld) [Volum e fraction]Ordered By: Tdod Velasquez on 08-06-2023 Hematocrit (Bld) [Volume fraction] 37.4 % 37-47 [facility] - Chemistry and C hemistry - challengeOrdered By: Todd Velasquez on 08-06-2023 ALP [Catalytic activity/Vol] 99 U/L 45-117 [facility] ALT [Catalytic activity/Vol] 18 U/L 13-56 [facility] CO2 [Moles/Vol] 29.0 mmol/L 21.0-32.0 [facility] Globulin (S) [Mass/Vol] 3.6 g/dL 2.2-4.2 [facility] Urea nitrogen/Creatinine [Mass ratio] 21.8 mg/mg 10-20 [facility] - Hematology and Cell countsOrdered By: Todd Velasquez on 08-06-2023 Erythrocyte distribution width (RBC) [Entitic vol] 46.5 fL 35.1-43.9 [facility] Erythrocyte distribution width (RBC) [Ratio] 13.1 % 11.6-14.6 [facility] Immature granulocytes/100 WBC (Bld) 0.300 % 0.0-0.9 [facility] Comment on above: IG% - Immature Granu locytes (promyelocytes, myelocytes and metamyelocytes) > 1% indicates that a LEFT SHIFT is Present. MCH (RBC) [Entitic mass] 31.0 pg 27.0-32.0 [facility] Nucleated RBC/100 WBC (Bld) [Ratio] 0 % 0-5 [facility] MCHC Auto (RBC) [Mass/Vol]Or dered By: Todd Velasquez on 08-06-2023 MCHC (RBC) [Mass/Vol] 32.4 g/dL 32-36 [facility] No Panel InformationOrdered By: Todd Velasquez on 08-06-2023 Estimated GFR (MDRD) Amer 99 mL/min >60 [facility] Comment on above: GFR Calc Estimated GFR (MDRD) Non-Af Amer 82 mL/min >60 [facility] Comment on above: Non- GFR Calc Valproic Acid (Depakene) Level 102 ug/mL 50-100 [facility] Platelets bldOrdered By: Ignacia Velasquez on 08-06-2023 Platelets (Bld) [#/Vol] 169 10*3/uL 150-450 [facility] Serum or plasma albumin jacob urement (mass/volume)Ordered By: Todd Velasquez on 08-06-2023 Albumin [Mass/Vol] 3.1 g/dL 3.2-5.0 [facility] Serum or plasma albumin/glob ulin mass ratioOrdered By: Todd Velasquez on 08-06-2023 Albumin/Globulin [Mass ratio] 0.9 {ratio} 0.9-2.4 [facility] Serum or plasma calcium jacob urement (mass/volume)Ordered By: Todd Velasquez on 08-06-2023 Calcium [Mass/Vol] 8.9 mg/dL 8.5-10.1 [facility] Serum or plasma creatinine m easurement (mass/volume)Ordered By: Todd Velasquez on 08-06-2023 Creatinine [Mass/Vol] 0.74 mg/dL 0.55-1.02 [facility] Comment on above: The validity of the calculated GFR & GFRAA in patients over 70 years has not been determined. Clinical correlation is essential. Serum or plasma phenytoin me asurement (mass/volume)Ordered By: Todd Velasquez on 08-06-2023 Phenytoin [Mass/Vol] 7.0 mL 10.0-20.0 [facility] Serum or plasma urea nitroge n measurement (mass/volume)Ordered By: Todd Velasquez on 08-06-2023 Urea nitrogen [Mass/Vol] 16 mg/dL 7-18 [facility] Thin prep Papanicolaou smear with manual screeningOrdered By: Todd Velasquez on 08-06-2023 Thin prep Papanicolaou smear with manual screening 16 U/L 15-37 [facility] Thin prep Papanicolaou smear with manual screening 3 5-15 [facility] Absolute lymphocyte countOrd ered By: Todd Velasquez on 05-14-2023 Lymphocytes Auto (Unsp spec) [#/Vol] 2.33 10*3/uL 0.83-4.51 [facility] Basophil percentageOrdered B y: Todd Velasquez on 05-14-2023 Basophils/100 WBC (Bld) 0.9 % 0-1 [facility] Bilirubin [Mass/Vol] 0.30 mg/dL 0.20-1.00 [facility] Comment on above: For patients on eltr ombopag therapy, use of [place] [place] TBIL is not recommended. Chloride [Moles/Vol] 107 mmol/L 98-107 [facility] Eosinophils/100 WBC (Bld) 2.0 % 0-5 [facility] Glucose [Mass/Vol] 87 mg/dL 74-106 [facility] Neutrophils (Bld) [#/Vol] 3.2 10*3/uL 2.0-7.7 [facility] Neutrophils/100 WBC (Bld) 50.0 % 47-70 [facility] Potassium [Moles/Vol] 4.7 mmol/L 3.5-5.1 [facility] Protein [Mass/Vol] 6.7 g/dL 6.4-8.2 [facility] Sodium [Moles/Vol] 138 mmol/L 136-145 [facility] WBC (Bld) [#/Vol] 6.4 10*3/uL 4.4-11.0 [facility] Blood erythrocytes count (nu mber/volume)Ordered By: Todd Velasquez on 05-14-2023 RBC (Bld) [#/Vol] 3.95 10*6/uL 4.2-5.4 [facility] Blood hemoglobin measurement (mass/volume)Ordered By: Todd Velasquez on 05-14-2023 Hemoglobin (Bld) [Mass/Vol] 12.2 g/dL 12.0-15.0 [facility] Blood lymphocytes/100 leukoc ytesOrdered By: Todd Velasquez on 05-14-2023 Lymphocytes/100 WBC (Bld) 36.5 % 19-41 [facility] Blood monocytes/100 leukocyt esOrdered By: Todd Velasquez on 05-14-2023 Monocytes/100 WBC (Bld) 10.3 % 0-10 [facility] Blood platelet mean volumeOr dered By: Todd Velasquez on 05-14-2023 Platelet mean volume (Bld) [Entitic vol] 12.1 fL 6.2-12.0 [facility] Determination of erythrocyte mean corpuscular volume (MCV)Ordered By: Todd Velasquez on 05-14-2023 MCV (RBC) [Entitic vol] 96.2 fL 81-99 [facility] Hematocrit Auto (Bld) [Volum e fraction]Ordered By: Todd Velasquez on 05-14-2023 Hematocrit (Bld) [Volume fraction] 38.0 % 37-47 [facility] - Chemistry and C hemistry - challengeOrdered By: Todd Velasquez on 05-14-2023 ALP [Catalytic activity/Vol] 111 U/L 45-117 [facility] ALT [Catalytic activity/Vol] 16 U/L 13-56 [facility] CO2 [Moles/Vol] 28.0 mmol/L 21.0-32.0 [facility] Globulin (S) [Mass/Vol] 3.5 g/dL 2.2-4.2 [facility] Urea nitrogen/Creatinine [Mass ratio] 28.6 mg/mg 10-20 [facility] - Hematology and Cell countsOrdered By: Todd Velasquez on 05-14-2023 Erythrocyte distribution width (RBC) [Entitic vol] 46.6 fL 35.1-43.9 [facility] Erythrocyte distribution width (RBC) [Ratio] 13.0 % 11.6-14.6 [facility] Immature granulocytes/100 WBC (Bld) 0.300 % 0.0-0.9 [facility] Comment on above: IG% - Immature Granu locytes (promyelocytes, myelocytes and metamyelocytes) > 1% indicates that a LEFT SHIFT is Present. MCH (RBC) [Entitic mass] 30.9 pg 27.0-32.0 [facility] Nucleated RBC/100 WBC (Bld) [Ratio] 0 % 0-5 [facility] MCHC Auto (RBC) [Mass/Vol]Or dered By: Todd Velasquez on 05-14-2023 MCHC (RBC) [Mass/Vol] 32.1 g/dL 32-36 [facility] No Panel InformationOrdered By: Todd Velasquez on 05-14-2023 Estimated GFR (MDRD) Amer 111 mL/min >60 [facility] Comment on above: GFR Calc Estimated GFR (MDRD) Non-Af Amer 92 mL/min >60 [facility] Comment on above: Non- GFR Calc Valproic Acid (Depakene) Level 62 ug/mL 50-100 [facility] Platelets bldOrdered By: Ignacia Velasquez on 05-14-2023 Platelets (Bld) [#/Vol] 175 10*3/uL 150-450 [facility] Serum or plasma albumin jacob urement (mass/volume)Ordered By: Todd Velasquez on 05-14-2023 Albumin [Mass/Vol] 3.2 g/dL 3.2-5.0 [facility] Serum or plasma albumin/glob ulin mass ratioOrdered By: Todd Velasquez on 05-14-2023 Albumin/Globulin [Mass ratio] 0.9 {ratio} 0.9-2.4 [facility] Serum or plasma calcium jacob urement (mass/volume)Ordered By: Todd Velasquez on 05-14-2023 Calcium [Mass/Vol] 8.8 mg/dL 8.5-10.1 [facility] Serum or plasma creatinine m easurement (mass/volume)Ordered By: Todd Velasquez on 05-14-2023 Creatinine [Mass/Vol] 0.66 mg/dL 0.55-1.02 [facility] Comment on above: The validity of the calculated GFR & GFRAA in patients over 70 years has not been determined. Clinical correlation is essential. Serum or plasma phenytoin me asurement (mass/volume)Ordered By: Todd Velasquez on 05-14-2023 Phenytoin [Mass/Vol] 8.9 mL 10.0-20.0 [facility] Serum or plasma urea nitroge n measurement (mass/volume)Ordered By: Todd Velasquez on 05-14-2023 Urea nitrogen [Mass/Vol] 19 mg/dL 7-18 [facility] Thin prep Papanicolaou smear with manual screeningOrdered By: Todd Velasquez on 05-14-2023 Thin prep Papanicolaou smear with manual screening 18 U/L 15-37 [facility] Thin prep Papanicolaou smear with manual screening 3 5-15 [facility] Absolute lymphocyte countOrd ered By: Todd Velasquez on 11-27-2022 Lymphocytes Auto (Unsp spec) [#/Vol] 2.72 10*3/uL 0.83-4.51 [facility] Basophil percentageOrdered B y: Todd Velasquez on 11-27-2022 Basophils/100 WBC (Bld) 0.6 % 0-1 [facility] Bilirubin [Mass/Vol] 0.20 mg/dL 0.20-1.00 [facility] Comment on above: For patients on eltr ombopag therapy, use of [place] [place] TBIL is not recommended. Chloride [Moles/Vol] 107 mmol/L 98-107 [facility] Eosinophils/100 WBC (Bld) 1.8 % 0-5 [facility] Glucose [Mass/Vol] 84 mg/dL 74-106 [facility] Neutrophils (Bld) [#/Vol] 3.2 10*3/uL 2.0-7.7 [facility] Neutrophils/100 WBC (Bld) 47.4 % 47-70 [facility] Potassium [Moles/Vol] 4.7 mmol/L 3.5-5.1 [facility] Protein [Mass/Vol] 7.5 g/dL 6.4-8.2 [facility] Sodium [Moles/Vol] 139 mmol/L 136-145 [facility] WBC (Bld) [#/Vol] 6.7 10*3/uL 4.4-11.0 [facility] Blood erythrocytes count (nu mber/volume)Ordered By: Todd Velasquez on 11-27-2022 RBC (Bld) [#/Vol] 3.67 10*6/uL 4.2-5.4 [facility] Blood hemoglobin measurement (mass/volume)Ordered By: Todd Velasquez on 11-27-2022 Hemoglobin (Bld) [Mass/Vol] 11.6 g/dL 12.0-15.0 [facility] Blood lymphocytes/100 leukoc ytesOrdered By: Todd Velasquez on 11-27-2022 Lymphocytes/100 WBC (Bld) 40.6 % 19-41 [facility] Blood monocytes/100 leukocyt esOrdered By: Todd Velasquez on 11-27-2022 Monocytes/100 WBC (Bld) 9.3 % 0-10 [facility] Blood platelet mean volumeOr dered By: Todd Velasquez on 11-27-2022 Platelet mean volume (Bld) [Entitic vol] 11.3 fL 6.2-12.0 [facility] Determination of erythrocyte mean corpuscular volume (MCV)Ordered By: Todd Velasquez on 11-27-2022 MCV (RBC) [Entitic vol] 97.3 fL 81-99 [facility] Hematocrit Auto (Bld) [Volum e fraction]Ordered By: Todd Velasquez on 11-27-2022 Hematocrit (Bld) [Volume fraction] 35.7 % 37-47 [facility] - Chemistry and C hemistry - challengeOrdered By: Todd Velasquez on 11-27-2022 ALP [Catalytic activity/Vol] 96 U/L 45-117 [facility] ALT [Catalytic activity/Vol] 14 U/L 13-56 [facility] CO2 [Moles/Vol] 27.0 mmol/L 21.0-32.0 [facility] Globulin (S) [Mass/Vol] 4.8 g/dL 2.2-4.2 [facility] Urea nitrogen/Creatinine [Mass ratio] 32.4 mg/mg 10-20 [facility] - Hematology and Cell countsOrdered By: Todd Velasquez on 11-27-2022 Erythrocyte distribution width (RBC) [Entitic vol] 47.7 fL 35.1-43.9 [facility] Erythrocyte distribution width (RBC) [Ratio] 13.2 % 11.6-14.6 [facility] Immature granulocytes/100 WBC (Bld) 0.300 % 0.0-0.9 [facility] Comment on above: IG% - Immature Granu locytes (promyelocytes, myelocytes and metamyelocytes) > 1% indicates that a LEFT SHIFT is Present. MCH (RBC) [Entitic mass] 31.6 pg 27.0-32.0 [facility] Nucleated RBC/100 WBC (Bld) [Ratio] 0 % 0-5 [facility] MCHC Auto (RBC) [Mass/Vol]Or dered By: Todd Velasquez on 11-27-2022 MCHC (RBC) [Mass/Vol] 32.5 g/dL 32-36 [facility] No Panel InformationOrdered By: Todd Velasquez on 11-27-2022 Estimated GFR (MDRD) Amer 115 mL/min >60 [facility] Comment on above: GFR Calc Estimated GFR (MDRD) Non-Af Amer 95 mL/min >60 [facility] Comment on above: Non- GFR Calc Valproic Acid (Depakene) Level 72 ug/mL 50-100 [facility] Platelets bldOrdered By: Ignacia Velasquez on 11-27-2022 Platelets (Bld) [#/Vol] 187 10*3/uL 150-450 [facility] Serum or plasma albumin jacob urement (mass/volume)Ordered By: Todd Velasquez on 11-27-2022 Albumin [Mass/Vol] 2.7 g/dL 3.2-5.0 [facility] Serum or plasma albumin/glob ulin mass ratioOrdered By: Todd Velasquez on 11-27-2022 Albumin/Globulin [Mass ratio] 0.6 {ratio} 0.9-2.4 [facility] Serum or plasma calcium jacob urement (mass/volume)Ordered By: Todd Velasquez on 11-27-2022 Calcium [Mass/Vol] 9.1 mg/dL 8.5-10.1 [facility] Serum or plasma creatinine m easurement (mass/volume)Ordered By: Todd Velasquez on 11-27-2022 Creatinine [Mass/Vol] 0.65 mg/dL 0.55-1.02 [facility] Comment on above: The validity of the calculated GFR & GFRAA in patients over 70 years has not been determined. Clinical correlation is essential. Serum or plasma phenytoin me asurement (mass/volume)Ordered By: Todd Velasquez on 11-27-2022 Phenytoin [Mass/Vol] 10.5 mL 10.0-20.0 [facility] Serum or plasma urea nitroge n measurement (mass/volume)Ordered By: Todd Velasquez on 11-27-2022 Urea nitrogen [Mass/Vol] 21 mg/dL 7-18 [facility] Thin prep Papanicolaou smear with manual screeningOrdered By: Todd Velasquez on 11-27-2022 Thin prep Papanicolaou smear with manual screening 16 U/L 15-37 [facility] Thin prep Papanicolaou smear with manual screening 5 5-15 [facility] Serum or plasma phenytoin me asurement (mass/volume)Ordered By: Todd Velasquez on 10-30-2022 Phenytoin [Mass/Vol] 9.8 mL 10.0-20.0 [facility] Basophil percentageOrdered B y: Todd Velasquez on 10-24-2022 Bilirubin [Mass/Vol] 0.30 mg/dL 0.20-1.00 [facility] Comment on above: For patients on eltr ombopag therapy, use of [employer] [place] TBIL is not recommended. Chloride [Moles/Vol] 106 mmol/L 98-107 [facility] Glucose [Mass/Vol] 80 mg/dL 74-106 [facility] Potassium [Moles/Vol] 4.0 mmol/L 3.5-5.1 [facility] Protein [Mass/Vol] 6.6 g/dL 6.4-8.2 [facility] Sodium [Moles/Vol] 141 mmol/L 136-145 [facility] WBC (Bld) [#/Vol] 6.5 10*3/uL 4.4-11.0 [facility] Blood erythrocytes count (nu mber/volume)Ordered By: Todd Velasquez on 10-24-2022 RBC (Bld) [#/Vol] 3.82 10*6/uL 4.2-5.4 [facility] Blood hemoglobin measurement (mass/volume)Ordered By: Todd Velasquez on 10-24-2022 Hemoglobin (Bld) [Mass/Vol] 12.4 g/dL 12.0-15.0 [facility] Blood platelet mean volumeOr dered By: Todd Velasquez on 10-24-2022 Platelet mean volume (Bld) [Entitic vol] 11.0 fL 6.2-12.0 [facility] Determination of erythrocyte mean corpuscular volume (MCV)Ordered By: Todd Velasquez on 10-24-2022 MCV (RBC) [Entitic vol] 95.5 fL 81-99 [facility] Hematocrit Auto (Bld) [Volum e fraction]Ordered By: Todd Velasquez on 10-24-2022 Hematocrit (Bld) [Volume fraction] 36.5 % 37-47 [facility] - Chemistry and C hemistry - challengeOrdered By: Todd Velasquez on 10-24-2022 ALP [Catalytic activity/Vol] 92 U/L 45-117 [facility] ALT [Catalytic activity/Vol] 11 U/L 13-56 [facility] CO2 [Moles/Vol] 27.0 mmol/L 21.0-32.0 [facility] Globulin (S) [Mass/Vol] 4.1 g/dL 2.2-4.2 [facility] Urea nitrogen/Creatinine [Mass ratio] 20.3 mg/mg 10-20 [facility] - Hematology and Cell countsOrdered By: Todd Velasquez on 10-24-2022 Erythrocyte distribution width (RBC) [Entitic vol] 43.8 fL 35.1-43.9 [facility] Erythrocyte distribution width (RBC) [Ratio] 12.7 % 11.6-14.6 [facility] MCH (RBC) [Entitic mass] 32.5 pg 27.0-32.0 [facility] MCHC Auto (RBC) [Mass/Vol]Or dered By: Todd Velasquez on 10-24-2022 MCHC (RBC) [Mass/Vol] 34.0 g/dL 32-36 [facility] No Panel InformationOrdered By: Todd Velasquez on 10-24-2022 Estimated GFR (MDRD) Amer 127 mL/min >60 [facility] Comment on above: GFR Calc Estimated GFR (MDRD) Non-Af Amer 105 mL/min >60 [facility] Comment on above: Non- GFR Calc Thyroid Stimulating Hormone (TSH) 3.19 uIU/mL 0.358-3.74 [facility] Valproic Acid (Depakene) Level 103 ug/mL 50-100 [facility] Platelets bldOrdered By: Ignacia Velasquez on 10-24-2022 Platelets (Bld) [#/Vol] 265 10*3/uL 150-450 [facility] Serum or plasma albumin jacob urement (mass/volume)Ordered By: Todd Velasquez on 10-24-2022 Albumin [Mass/Vol] 2.5 g/dL 3.2-5.0 [facility] Serum or plasma albumin/glob ulin mass ratioOrdered By: Todd Velasquez on 10-24-2022 Albumin/Globulin [Mass ratio] 0.6 {ratio} 0.9-2.4 [facility] Serum or plasma calcium jacob urement (mass/volume)Ordered By: Todd Velasquez on 10-24-2022 Calcium [Mass/Vol] 8.7 mg/dL 8.5-10.1 [facility] Serum or plasma creatinine m easurement (mass/volume)Ordered By: Todd Velasquez on 10-24-2022 Creatinine [Mass/Vol] 0.59 mg/dL 0.55-1.02 [facility] Comment on above: The validity of the calculated GFR & GFRAA in patients over 70 years has not been determined. Clinical correlation is essential. Serum or plasma phenytoin me asurement (mass/volume)Ordered By: Todd Velasquez on 10-24-2022 Phenytoin [Mass/Vol] 9.6 mL 10.0-20.0 [facility] Serum or plasma urea nitroge n measurement (mass/volume)Ordered By: Todd Velasquez on 10-24-2022 Urea nitrogen [Mass/Vol] 12 mg/dL 7-18 [facility] Thin prep Papanicolaou smear with manual screeningOrdered By: Todd Velasquez on 10-24-2022 Thin prep Papanicolaou smear with manual screening 13 U/L 15-37 [facility] Thin prep Papanicolaou smear with manual screening 8 5-15 [facility] Absolute lymphocyte countOrd ered By: Orville Mendoza on 09-04-2022 Lymphocytes Auto (Unsp spec) [#/Vol] 2.50 10*3/uL 0.83-4.51 [facility] Basophil percentageOrdered B y: Orville Mendoza on 09-04-2022 Basophils/100 WBC (Bld) 0.8 % 0-1 [facility] Bilirubin [Mass/Vol] 0.40 mg/dL 0.20-1.00 [facility] Comment on above: For patients on eltr ombopag therapy, use of Dim[place] TBIL is not recommended. Chloride [Moles/Vol] 110 mmol/L 98-107 [facility] Eosinophils/100 WBC (Bld) 1.9 % 0-5 [facility] Glucose [Mass/Vol] 78 mg/dL 74-106 [facility] Neutrophils (Bld) [#/Vol] 2.9 10*3/uL 2.0-7.7 [facility] Neutrophils/100 WBC (Bld) 46.7 % 47-70 [facility] Potassium [Moles/Vol] 4.8 mmol/L 3.5-5.1 [facility] Protein [Mass/Vol] 6.5 g/dL 6.4-8.2 [facility] Sodium [Moles/Vol] 142 mmol/L 136-145 [facility] WBC (Bld) [#/Vol] 6.3 10*3/uL 4.4-11.0 [facility] Blood erythrocytes count (nu mber/volume)Ordered By: Orville Mendoza on 09-04-2022 RBC (Bld) [#/Vol] 3.96 10*6/uL 4.2-5.4 [facility] Blood hemoglobin measurement (mass/volume)Ordered By: Orville Mendoza on 09-04-2022 Hemoglobin (Bld) [Mass/Vol] 12.7 g/dL 12.0-15.0 [facility] Blood lymphocytes/100 leukoc ytesOrdered By: Orville Mendoza on 09-04-2022 Lymphocytes/100 WBC (Bld) 39.9 % 19-41 [facility] Blood monocytes/100 leukocyt esOrdered By: Orville Mendoza on 09-04-2022 Monocytes/100 WBC (Bld) 10.4 % 0-10 [facility] Blood platelet mean volumeOr dered By: Orville Mendoza on 09-04-2022 Platelet mean volume (Bld) [Entitic vol] 11.6 fL 6.2-12.0 [facility] Determination of erythrocyte mean corpuscular volume (MCV)Ordered By: Orville Mendoza on 09-04-2022 MCV (RBC) [Entitic vol] 96.0 fL 81-99 [facility] Hematocrit Auto (Bld) [Volum e fraction]Ordered By: Orville Mendoza on 09-04-2022 Hematocrit (Bld) [Volume fraction] 38.0 % 37-47 [facility] Laboratory - Chemistry and C hemistry - challengeOrdered By: Orville Mendoaz on 09-04-2022 ALP [Catalytic activity/Vol] 108 U/L 45-117 [facility] ALT [Catalytic activity/Vol] 12 U/L 13-56 [facility] CO2 [Moles/Vol] 26.0 mmol/L 21.0-32.0 [facility] Globulin (S) [Mass/Vol] 3.6 g/dL 2.2-4.2 [facility] Urea nitrogen/Creatinine [Mass ratio] 25.3 mg/mg 10-20 [facility] Laboratory - Hematology and Cell countsOrdered By: Orville Mendoza on 09-04-2022 Erythrocyte distribution width (RBC) [Entitic vol] 45.3 fL 35.1-43.9 [facility] Erythrocyte distribution width (RBC) [Ratio] 12.7 % 11.6-14.6 [facility] Immature granulocytes/100 WBC (Bld) 0.300 % 0.0-0.9 [facility] Comment on above: IG% - Immature Granu locytes (promyelocytes, myelocytes and metamyelocytes) > 1% indicates that a LEFT SHIFT is Present. MCH (RBC) [Entitic mass] 32.1 pg 27.0-32.0 [facility] Nucleated RBC/100 WBC (Bld) [Ratio] 0 % 0-5 [facility] MCHC Auto (RBC) [Mass/Vol]Or dered By: Orville Mendoza on 09-04-2022 MCHC (RBC) [Mass/Vol] 33.4 g/dL 32-36 [facility] No Panel InformationOrdered By: Orville Mendoza on 09-04-2022 Estimated GFR (MDRD) Amer 138 mL/min >60 [facility] Comment on above: GFR Calc Estimated GFR (MDRD) Non-Af Amer 114 mL/min >60 [facility] Comment on above: Non- GFR Calc Valproic Acid (Depakene) Level 62 ug/mL 50-100 [facility] Platelets bldOrdered By: Russ Mendoza on 09-04-2022 Platelets (Bld) [#/Vol] 180 10*3/uL 150-450 [facility] Serum or plasma albumin jacob urement (mass/volume)Ordered By: Orville Mendoza on 09-04-2022 Albumin [Mass/Vol] 2.9 g/dL 3.2-5.0 [facility] Serum or plasma albumin/glob ulin mass ratioOrdered By: Orville Mendoza on 09-04-2022 Albumin/Globulin [Mass ratio] 0.8 {ratio} 0.9-2.4 [facility] Serum or plasma calcium jacob urement (mass/volume)Ordered By: Orville Mendoza on 09-04-2022 Calcium [Mass/Vol] 9.0 mg/dL 8.5-10.1 [facility] Serum or plasma creatinine m easurement (mass/volume)Ordered By: Orvlile Mendoza on 09-04-2022 Creatinine [Mass/Vol] 0.55 mg/dL 0.55-1.02 [facility] Comment on above: The validity of the calculated GFR & GFRAA in patients over 70 years has not been determined. Clinical correlation is essential. Serum or plasma phenytoin me asurement (mass/volume)Ordered By: Orville Mendoza on 09-04-2022 Phenytoin [Mass/Vol] 11.7 mL 10.0-20.0 [facility] Serum or plasma urea nitroge n measurement (mass/volume)Ordered By: Orville Mendoza on 09-04-2022 Urea nitrogen [Mass/Vol] 14 mg/dL 7-18 [facility] Thin prep Papanicolaou smear with manual screeningOrdered By: Orville Mendoza on 09-04-2022 Thin prep Papanicolaou smear with manual screening 16 U/L 15 [facility] Thin prep Papanicolaou smear with manual screening 6 5-15 [facility] Absolute lymphocyte counton 06-12-2022 Lymphocytes Auto (Unsp spec) [#/Vol] 2.92 10*3/uL 0.83-4.51 [facility] Work Phone: Basophil percentageon 2021 Basophils/100 WBC (Bld) 0.7 % 0-1 [facility] Work Phone: [phone] Bilirubin [Mass/Vol] 0.40 mg/dL 0.20-1.00 [facility] Work Phone: Comment on above: For patients on eltr ombopag therapy, use of [place] TBIL is not recommended. Chloride [Moles/Vol] 108 mmol/L 98-107 [facility] Work Phone: Eosinophils/100 WBC (Bld) 1.7 % 0-5 [facility] Work Phone: Glucose [Mass/Vol] 77 mg/dL 74-106 [facility] Work Phone: Neutrophils (Bld) [#/Vol] 3.4 10*3/uL 2.0-7.7 [facility] Work Phone: Neutrophils/100 WBC (Bld) 46.5 % 47-70 [facility] Work Phone: Potassium [Moles/Vol] 4.7 mmol/L 3.5-5.1 [facility] Work Phone: Protein [Mass/Vol] 6.5 g/dL 6.4-8.2 [facility] Work Phone: Sodium [Moles/Vol] 141 mmol/L 136-145 [facility]: WBC (Bld) [#/Vol] 7.3 10*3/uL 4.4-11.0 [facility] Work Phone: Blood erythrocytes count (nu mber/volume)on 06-12-2022 RBC (Bld) [#/Vol] 3.84 10*6/uL [facility].2-5.[facility]: Blood hemoglobin measurement (mass/volume)on 06-12-2022 Hemoglobin (Bld) [Mass/Vol] 12.5 g/dL 12.0-15.0 [facility] Work Phone: Blood lymphocytes/100 leukoc yteson 06-12-2022 Lymphocytes/100 WBC (Bld) 40.3 % 19-41 [facility] Work Phone: Blood monocytes/100 leukocyt eson 06-12-2022 Monocytes/100 WBC (Bld) 10.5 % 0-10 [facility] Work Phone: Blood platelet mean volumeon 06-12-2022 Platelet mean volume (Bld) [Entitic vol] 12.2 fL 6.2-12.0 [facility] Work Phone: Determination of erythrocyte mean corpuscular volume (MCV)on 06-12-2022 MCV (RBC) [Entitic vol] 96.9 fL 81-99 [facility] Work Phone: Hematocrit Auto (Bld) [Volum e fraction]on 06-12-2022 Hematocrit (Bld) [Volume fraction] 37.2 % 37-47 [facility] Work Phone: Laboratory - Chemistry and C hemistry - challengeon 06-12-2022 ALP [Catalytic activity/Vol] 81 U/L 45-117 [facility] Work Phone: ALT [Catalytic activity/Vol] 18 U/L 13-56 [facility] Work Phone: CO2 [Moles/Vol] 28.0 mmol/L 21.0-32.0 [facility] Work Phone: Globulin (S) [Mass/Vol] 3.6 g/dL 2.2-4.2 [facility] Work Phone: Urea nitrogen/Creatinine [Mass ratio] 32.4 mg/mg 10-20 [facility] Work Phone: Laboratory - Hematology and Cell countson 06-12-2022 Erythrocyte distribution width (RBC) [Entitic vol] 45.7 fL 35.1-43.9 [facility] Work Phone: Erythrocyte distribution width (RBC) [Ratio] 12.8 % 11.6-14.6 [facility] Work Phone: Immature granulocytes/100 WBC (Bld) 0.300 % 0.0-0.9 [facility] Work Phone: Comment on above: IG% - Immature Granu locytes (promyelocytes, myelocytes and metamyelocytes) > 1% indicates that a LEFT SHIFT is Present. MCH (RBC) [Entitic mass] 32.6 pg 27.0-32.0 [facility] Work Phone: Nucleated RBC/100 WBC (Bld) [Ratio] 0 % 0-5 [facility] Work Phone: MCHC Auto (RBC) [Mass/Vol]on 06-12-2022 MCHC (RBC) [Mass/Vol] 33.6 g/dL 32-36 [facility] Work Phone: No Panel Informationon 06-12 Estimated GFR (MDRD) Amer 103 mL/min >60 [facility] Work Phone: Comment on above: GFR Calc Estimated GFR (MDRD) Non-Af Amer 85 mL/min >60 [facility] Work Phone: Comment on above: Non- GFR Calc Valproic Acid (Depakene) Level 102 ug/mL 50-100 [facility] Work Phone: Platelets bldon 06-12-2022 Platelets (Bld) [#/Vol] 155 10*3/uL 150-450 [facility] Work Phone: Serum or plasma albumin jacob urement (mass/volume)on 06-12-2022 Albumin [Mass/Vol] 2.9 g/dL 3.2-5.0 [facility] Work Phone: Serum or plasma albumin/glob ulin mass ratioon 06-12-2022 Albumin/Globulin [Mass ratio] 0.8 {ratio} 0.9-2.4 [facility] Work Phone: Serum or plasma calcium jacob urement (mass/volume)on 06-12-2022 Calcium [Mass/Vol] 8.9 mg/dL 8.5-10.1 [facility] Work Phone: Serum or plasma creatinine m easurement (mass/volume)on 06-12-2022 Creatinine [Mass/Vol] 0.71 mg/dL 0.55-1.02 [facility] Work Phone: Comment on above: The validity of the calculated GFR & GFRAA in patients over 70 years has not been determined. Clinical correlation is essential. Serum or plasma phenytoin me asurement (mass/volume)on 06-12-2022 Phenytoin [Mass/Vol] 13.3 mL 10.0-20.0 [facility] Work Phone: Serum or plasma urea nitroge n measurement (mass/volume)on 06-12-2022 Urea nitrogen [Mass/Vol] 23 mg/dL 7-18 [facility] Work Phone: Thin prep Papanicolaou smear with manual screeningon 06-12-2022 Thin prep Papanicolaou smear with manual screening 17 U/L 15-37 [facility] Work Phone: Thin prep Papanicolaou smear with manual screening 5 5-15 [facility] Work Phone: Absolute lymphocyte counton 03-20-2022 Lymphocytes Auto (Unsp spec) [#/Vol] 2.29 10*3/uL 0.83-4.51 [facility] Work Phone: Basophil percentageon 2021 Basophils/100 WBC (Bld) 0.9 % 0-1 [facility] Work Phone: Bilirubin [Mass/Vol] 0.30 mg/dL 0.20-1.00 [facility] Work Phone: Comment on above: For patients on eltr ombopag therapy, use of [place] [place] TBIL is not recommended. Chloride [Moles/Vol] 106 mmol/L 98-107 [facility] Work Phone: Eosinophils/100 WBC (Bld) 1.5 % 0-5 [facility] Work Phone: Glucose [Mass/Vol] 80 mg/dL 74-106 [facility] Work Phone: Neutrophils (Bld) [#/Vol] 3.4 10*3/uL 2.0-7.7 [facility] Work Phone: [phone] Neutrophils/100 WBC (Bld) 51.9 % 47-70 [facility] Work Phone: Potassium [Moles/Vol] 4.2 mmol/L 3.5-5.1 [facility] Work Phone: Protein [Mass/Vol] 6.4 g/dL 6.4-8.2 [facility] Work Phone: Sodium [Moles/Vol] 140 mmol/L 136-145 [facility] Work Phone: WBC (Bld) [#/Vol] 6.5 10*3/uL 4.4-11.0 [facility] Work Phone: Blood erythrocytes count (nu mber/volume)on 03-20-2022 RBC (Bld) [#/Vol] 3.89 10*6/uL 4.2-5.4 [facility] Work [facility]: Blood hemoglobin measurement (mass/volume)on 03-20-2022 Hemoglobin (Bld) [Mass/Vol] 12.5 g/dL 12.0-15.0 [facility] Work Phone: Blood lymphocytes/100 leukoc yteson 03-20-2022 Lymphocytes/100 WBC (Bld) 35.1 % 19-41 [facility] Work Phone: Blood monocytes/100 leukocyt eson 03-20-2022 Monocytes/100 WBC (Bld) 10.1 % 0-10 [facility] Work Phone: Blood platelet mean volumeon 03-20-2022 Platelet mean volume (Bld) [Entitic vol] 11.9 fL 6.2-12.0 [facility] Work Phone: Determination of erythrocyte mean corpuscular volume (MCV)on 03-20-2022 MCV (RBC) [Entitic vol] 97.4 fL 81-99 [facility] Work Phone: Hematocrit Auto (Bld) [Volum e fraction]on 03-20-2022 Hematocrit (Bld) [Volume fraction] 37.9 % 37-47 [facility] Work Phone: Laboratory - Chemistry and C hemistry - challengeon 03-20-2022 ALP [Catalytic activity/Vol] 79 U/L 45-117 [facility] Work Phone: ALT [Catalytic activity/Vol] 16 U/L 13-56 [facility] Work Phone: CO2 [Moles/Vol] 27.0 mmol/L 21.0-32.0 [facility] Work Phone: Globulin (S) [Mass/Vol] 3.4 g/dL 2.2-4.2 [facility] Work Phone: Urea nitrogen/Creatinine [Mass ratio] 25.4 mg/mg 10-20 [facility] Work Phone: Laboratory - Hematology and Cell countson 03-20-2022 Erythrocyte distribution width (RBC) [Entitic vol] 45.1 fL 35.1-43.9 [facility] Work Phone: Erythrocyte distribution width (RBC) [Ratio] 12.6 % 11.6-14.6 [facility] Work Phone: Immature granulocytes/100 WBC (Bld) 0.500 % 0.0-0.9 [facility] Work Phone: Comment on above: IG% - Immature Granu locytes (promyelocytes, myelocytes and metamyelocytes) > 1% indicates that a LEFT SHIFT is Present. MCH (RBC) [Entitic mass] 32.1 pg 27.0-32.0 [facility] Work Phone: Nucleated RBC/100 WBC (Bld) [Ratio] 0 % 0-5 [facility] Work Phone: MCHC Auto (RBC) [Mass/Vol]on 03-20-2022 MCHC (RBC) [Mass/Vol] 33.0 g/dL 32-36 [facility] Work Phone: No Panel Informationon 03-20 Estimated GFR (MDRD) Amer 111 mL/min >60 [facility] Work Phone: Comment on above: GFR Calc Estimated GFR (MDRD) Non-Af Amer 91 mL/min >60 [facility] Work Phone: Comment on above: Non- GFR Calc Valproic Acid (Depakene) Level 134 ug/mL 50-100 [facility] Work Phone: Platelets bldon 03-20-2022 Platelets (Bld) [#/Vol] 173 10*3/uL 150-450 [facility] Work Phone: Serum or plasma albumin jacob urement (mass/volume)on 03-20-2022 Albumin [Mass/Vol] 3.0 g/dL 3.2-5.0 [facility] Work Phone: Serum or plasma albumin/glob ulin mass ratioon 03-20-2022 Albumin/Globulin [Mass ratio] 0.9 {ratio} 0.9-2.4 [facility] Work Phone: Serum or plasma calcium jacob urement (mass/volume)on 03-20-2022 Calcium [Mass/Vol] 9.1 mg/dL 8.5-10.1 [facility] Work Phone: Serum or plasma creatinine m easurement (mass/volume)on 03-20-2022 Creatinine [Mass/Vol] 0.67 mg/dL 0.55-1.02 [facility] Work Phone: Comment on above: The validity of the calculated GFR & GFRAA in patients over 70 years has not been determined. Clinical correlation is essential. Serum or plasma phenytoin me asurement (mass/volume)on 03-20-2022 Phenytoin [Mass/Vol] 12.7 mL 10.0-20.0 [facility] Work Phone: Serum or plasma urea nitroge n measurement (mass/volume)on 03-20-2022 Urea nitrogen [Mass/Vol] 17 mg/dL 7-18 [facility] Work Phone: Thin prep Papanicolaou smear with manual screeningon 03-20-2022 Thin prep Papanicolaou smear with manual screening 20 U/L 15-37 [facility] Work Phone: Thin prep Papanicolaou smear with manual screening 7 5-15 [facility] Work Phone: Absolute lymphocyte counton 12-26-2021 Lymphocytes Auto (Unsp spec) [#/Vol] 2.25 10*3/uL 0.83-4.51 [facility] Work Phone: Basophil percentageon 2021 Basophils/100 WBC (Bld) 0.6 % 0-1 [facility] Work Phone: Bilirubin [Mass/Vol] 0.40 mg/dL 0.20-1.00 [facility] Work Phone: Comment on above: For patients on eltr ombopag therapy, use of [place] [place] TBIL is not recommended. Chloride [Moles/Vol] 107 mmol/L 98-107 [facility] Work Phone: Eosinophils/100 WBC (Bld) 1.3 % 0-5 [facility] Work Phone: Glucose [Mass/Vol] 79 mg/dL 74-106 [facility] Work Phone: Neutrophils (Bld) [#/Vol] 3.2 10*3/uL 2.0-7.7 [facility] Work Phone: Neutrophils/100 WBC (Bld) 50.0 % 47-70 [facility] Work Phone: [phone] Potassium [Moles/Vol] 4.3 mmol/L 3.5-5.1 [facility] Work Phone: Protein [Mass/Vol] 6.1 g/dL 6.4-8.2 [facility] Work Phone: Sodium [Moles/Vol] 140 mmol/L 136-145 [facility] Work Phone: [phone] WBC (Bld) [#/Vol] 6.4 10*3/uL 4.4-11.0 [facility] Work Phone: Blood erythrocytes count (nu mber/volume)on 12-26-2021 RBC (Bld) [#/Vol] 3.63 10*6/uL 4.2-5.4 [facility] Work Phone: Blood hemoglobin measurement (mass/volume)on 12-26-2021 Hemoglobin (Bld) [Mass/Vol] 12.3 g/dL 12.0-15.0 [facility] Work Phone: [phone] Blood lymphocytes/100 leukoc yteson 12-26-2021 Lymphocytes/100 WBC (Bld) 35.4 % 19-41 [facility] Work Phone: [phone] Blood monocytes/100 leukocyt eson 12-26-2021 Monocytes/100 WBC (Bld) 12.4 % 0-10 [facility] Work Phone: Blood platelet mean volumeon 12-26-2021 Platelet mean volume (Bld) [Entitic vol] 11.6 fL 6.2-12.0 [facility] Work Phone: Determination of erythrocyte mean corpuscular volume (MCV)on 12-26-2021 MCV (RBC) [Entitic vol] 98.1 fL 81-99 [facility] Work Phone: Hematocrit Auto (Bld) [Volum e fraction]on 12-26-2021 Hematocrit (Bld) [Volume fraction] 35.6 % 37-47 [facility] Work Phone: Laboratory - Chemistry and C hemistry - challengeon 12-26-2021 ALP [Catalytic activity/Vol] 75 U/L 45-117 [facility] Work Phone: ALT [Catalytic activity/Vol] 12 U/L 13-56 [facility] Work Phone: CO2 [Moles/Vol] 28.0 mmol/L 21.0-32.0 [facility] Work Phone: Globulin (S) [Mass/Vol] 3.1 g/dL 2.2-4.2 [facility] Work Phone: Urea nitrogen/Creatinine [Mass ratio] 26.0 mg/mg 10-20 [facility] Work Phone: Laboratory - Hematology and Cell countson 12-26-2021 Erythrocyte distribution width (RBC) [Entitic vol] 44.0 fL 35.1-43.9 [facility] Work Phone: Erythrocyte distribution width (RBC) [Ratio] 12.0 % 11.6-14.6 [facility] Work Phone: Immature granulocytes/100 WBC (Bld) 0.300 % 0.0-0.9 [facility] Work Phone: Comment on above: IG% - Immature Granu locytes (promyelocytes, myelocytes and metamyelocytes) > 1% indicates that a LEFT SHIFT is Present. MCH (RBC) [Entitic mass] 33.9 pg 27.0-32.0 [facility] Work Phone: Nucleated RBC/100 WBC (Bld) [Ratio] 0 % 0-5 [facility] Work Phone: MCHC Auto (RBC) [Mass/Vol]on 12-26-2021 MCHC (RBC) [Mass/Vol] 34.6 g/dL 32-36 [facility] Work Phone: No Panel Informationon 12-26 Estimated GFR (MDRD) Amer 107 mL/min >60 [facility] Work Phone: Comment on above: GFR Calc Estimated GFR (MDRD) Non-Af Amer 88 mL/min >60 [facility] Work Phone: Comment on above: Non- GFR Calc Valproic Acid (Depakene) Level 101 ug/mL 50-100 [facility] Work Phone: Platelets bldon 12-26-2021 Platelets (Bld) [#/Vol] 170 10*3/uL 150-450 [facility] Work Phone: Serum or plasma albumin jacob urement (mass/volume)on 12-26-2021 Albumin [Mass/Vol] 3.0 g/dL 3.2-5.0 [facility] Work Phone: Serum or plasma albumin/glob ulin mass ratioon 12-26-2021 Albumin/Globulin [Mass ratio] 1.0 {ratio} 0.9-2.4 [facility] Work Phone: Serum or plasma calcium jacob urement (mass/volume)on 12-26-2021 Calcium [Mass/Vol] 9.0 mg/dL 8.5-10.1 [facility] Work Phone: Serum or plasma creatinine m easurement (mass/volume)on 12-26-2021 Creatinine [Mass/Vol] 0.69 mg/dL 0.55-1.02 [facility] Work Phone: Comment on above: The validity of the calculated GFR & GFRAA in patients over 70 years has not been determined. Clinical correlation is essential. Serum or plasma phenytoin me asurement (mass/volume)on 12-26-2021 Phenytoin [Mass/Vol] 10.5 mL 10.0-20.0 [facility] Work Phone: Serum or plasma urea nitroge n measurement (mass/volume)on 12-26-2021 Urea nitrogen [Mass/Vol] 18 mg/dL 7-18 [facility] Work Phone: Thin prep Papanicolaou smear with manual screeningon 12-26-2021 Thin prep Papanicolaou smear with manual screening 19 U/L 15-37 [facility] Work Phone: Thin prep Papanicolaou smear with manual screening 5 5-15 [facility] Work Phone: Absolute lymphocyte counton 12-21-2021 Lymphocytes Auto (Unsp spec) [#/Vol] 2.13 10*3/uL 0.83-4.51 [facility] Work Phone: Basophil percentageon 2021 Basophils/100 WBC (Bld) 0.7 % 0-1 [facility] Work Phone: Bilirubin [Mass/Vol] 0.40 mg/dL 0.20-1.00 [facility] Work Phone: Comment on above: For patients on eltr ombopag therapy, use of [place] TBIL is not recommended. Chloride [Moles/Vol] 106 mmol/L 98-107 [facility] Work Phone: Eosinophils/100 WBC (Bld) 1.1 % 0-5 [facility] Work Phone: Glucose [Mass/Vol] 73 mg/dL 74-106 [facility] Work Phone: Neutrophils (Bld) [#/Vol] 2.7 10*3/uL 2.0-7.7 [facility] Work Phone: Neutrophils/100 WBC (Bld) 48.2 % 47-70 [facility] Work Phone: Potassium [Moles/Vol] 4.2 mmol/L 3.5-5.1 [facility] Work Phone: Protein [Mass/Vol] 6.0 g/dL 6.4-8.2 [facility] Work Phone: Sodium [Moles/Vol] 140 mmol/L 136-145 [facility] Work Phone: WBC (Bld) [#/Vol] 5.6 10*3/uL 4.4-11.0 [facility] Work Phone: Blood erythrocytes count (nu mber/volume)on 12-21-2021 RBC (Bld) [#/Vol] 3.59 10*6/uL [facility].2-5.[facility] Work [facility]: Blood hemoglobin measurement (mass/volume)on 12-21-2021 Hemoglobin (Bld) [Mass/Vol] 11.7 g/dL 12.0-15.0 [facility] Work Phone: Blood lymphocytes/100 leukoc yteson 12-21-2021 Lymphocytes/100 WBC (Bld) 37.9 % 19-41 [facility] Work Phone: Blood monocytes/100 leukocyt eson 12-21-2021 Monocytes/100 WBC (Bld) 11.7 % 0-10 [facility] Work Phone: Blood platelet mean volumeon 12-21-2021 Platelet mean volume (Bld) [Entitic vol] 11.5 fL 6.2-12.0 [facility] Work Phone: Determination of erythrocyte mean corpuscular volume (MCV)on 12-21-2021 MCV (RBC) [Entitic vol] 97.5 fL 81-99 [facility] Work Phone: Hematocrit Auto (Bld) [Volum e fraction]on 12-21-2021 Hematocrit (Bld) [Volume fraction] 35.0 % 37-47 [facility] Work Phone: Laboratory - Chemistry and C hemistry - challengeon 12-21-2021 ALP [Catalytic activity/Vol] 65 U/L 45-117 [facility] Work Phone: ALT [Catalytic activity/Vol] 13 U/L 13-56 [facility] Work Phone: CO2 [Moles/Vol] 28.0 mmol/L 21.0-32.0 [facility] Work Phone: Globulin (S) [Mass/Vol] 3.2 g/dL 2.2-4.2 [facility] Work Phone: Urea nitrogen/Creatinine [Mass ratio] 17.9 mg/mg 10-20 [facility] Work Phone: Laboratory - Hematology and Cell countson 12-21-2021 Erythrocyte distribution width (RBC) [Entitic vol] 43.6 fL 35.1-43.9 [facility] Work Phone: Erythrocyte distribution width (RBC) [Ratio] 12.0 % 11.6-14.6 [facility] Work Phone: Immature granulocytes/100 WBC (Bld) 0.400 % 0.0-0.9 [facility] Work Phone: Comment on above: IG% - Immature Granu locytes (promyelocytes, myelocytes and metamyelocytes) > 1% indicates that a LEFT SHIFT is Present. MCH (RBC) [Entitic mass] 32.6 pg 27.0-32.0 [facility] Work Phone: Nucleated RBC/100 WBC (Bld) [Ratio] 0 % 0-5 [facility] Work Phone: MCHC Auto (RBC) [Mass/Vol]on 12-21-2021 MCHC (RBC) [Mass/Vol] 33.4 g/dL 32-36 [facility]: No Panel Informationon 12-21 Estimated GFR (MDRD) Amer 111 mL/min >60 [facility] Work Phone: Comment on above: GFR Calc Estimated GFR (MDRD) Non-Af Amer 91 mL/min >60 [facility] Work Phone: Comment on above: Non- GFR Calc Miscellaneous Test See comment [facility] Work Phone: Comment on above: TEST RESULT UNITS RE F INTERVALEthosuximide(Zarontin),Serum 53 ug/mL 40-100 Detection Limit = 10 TESTING PERFORMED AT [facility]. ORIGINAL REPORT ON FILE IN LAB CONTAINS ADDITIONAL TEST SITE INFORMATION. Platelets bldon 12-21-2021 Platelets (Bld) [#/Vol] 169 10*3/uL 150-450 [facility] Work Phone: Serum or plasma albumin jacob urement (mass/volume)on 12-21-2021 Albumin [Mass/Vol] 2.8 g/dL 3.2-5.0 [facility] Work Phone: Serum or plasma albumin/glob ulin mass ratioon 12-21-2021 Albumin/Globulin [Mass ratio] 0.9 {ratio} 0.9-2.4 [facility] Work Phone: Serum or plasma calcium jacob urement (mass/volume)on 12-21-2021 Calcium [Mass/Vol] 8.9 mg/dL 8.5-10.1 [facility] Work Phone: Serum or plasma creatinine m easurement (mass/volume)on 12-21-2021 Creatinine [Mass/Vol] 0.67 mg/dL 0.55-1.02 [facility] Work Phone: Comment on above: The validity of the calculated GFR & GFRAA in patients over 70 years has not been determined. Clinical correlation is essential. Serum or plasma phenytoin me asurement (mass/volume)on 12-21-2021 Phenytoin [Mass/Vol] 10.7 mL 10.0-20.0 [facility] Work Phone: Serum or plasma urea nitroge n measurement (mass/volume)on 12-21-2021 Urea nitrogen [Mass/Vol] 12 mg/dL 7-18 [facility] Work Phone: Thin prep Papanicolaou smear with manual screeningon 12-21-2021 Thin prep Papanicolaou smear with manual screening 17 U/L 15-37 [facility] Work Phone: Thin prep Papanicolaou smear with manual screening 6 5-15 [facility] Work Phone: No Panel Informationon 11-23 Thyroid Stimulating Hormone (TSH) 2.89 uIU/mL 0.358-3.74 [facility] Work Phone: No Panel Informationon 10-26 Valproic Acid (Depakene) Level 76 ug/mL 50-100 [facility] Work Phone: Serum or plasma phenytoin me asurement (mass/volume)on 10-26-2021 Phenytoin [Mass/Vol] 14.0 mL 10.0-20.0 [facility] Work Phone: Absolute lymphocyte counton 10-03-2021 Lymphocytes Auto (Unsp spec) [#/Vol] 3.18 10*3/uL 0.83-4.51 [facility] Work Phone: Basophil percentageon 2020 Bilirubin [Mass/Vol] 0.40 mg/dL 0.20-1.00 [facility] Work Phone: Comment on above: For patients on eltr ombopag therapy, use of Dimension [place] TBIL is not recommended. Chloride [Moles/Vol] 106 mmol/L 98-107 [facility]: Eosinophils/100 WBC (Bld) 1.7 % 0-5 [facility] Work Phone: Glucose [Mass/Vol] 73 mg/dL 74-106 [facility] Work Phone: Comment on above: Please note revised GLUCOSE reference range effective 2017. Neutrophils (Bld) [#/Vol] 2.4 10*3/uL 2.0-7.7 [facility] Work Phone: Potassium [Moles/Vol] 4.1 mmol/L 3.5-5.1 [facility] Work Phone: Protein [Mass/Vol] 6.4 g/dL 6.4-8.2 [facility] Work Phone: Sodium [Moles/Vol] 140 mmol/L 136-145 [facility] Work Phone: WBC (Bld) [#/Vol] 6.4 10*3/uL 4.4-11.0 [facility] Work Phone: [phone] Blood erythrocytes count (nu mber/volume)on 10-03-2021 RBC (Bld) [#/Vol] 3.71 10*6/uL 4.2-5.4 [facility] Work Phone: Blood hemoglobin measurement (mass/volume)on 10-03-2021 Hemoglobin (Bld) [Mass/Vol] 12.5 g/dL 12.0-15.0 [facility] Work Phone: Blood lymphocytes/100 leukoc yteson 10-03-2021 Lymphocytes/100 WBC (Bld) 49.5 % 19-41 [facility] Work Phone: Blood monocytes/100 leukocyt eson 10-03-2021 Monocytes/100 WBC (Bld) 11.0 % 0-10 [facility] Work Phone: Blood platelet mean volumeon 10-03-2021 Platelet mean volume (Bld) [Entitic vol] 12.0 fL 6.2-12.0 [facility] Work Phone: Determination of erythrocyte mean corpuscular volume (MCV)on 10-03-2021 MCV (RBC) [Entitic vol] 97.0 fL 81-99 [facility] Work Phone: Hematocrit Auto (Bld) [Volum e fraction]on 10-03-2021 Hematocrit (Bld) [Volume fraction] 36.0 % 37-47 [facility] Work Phone: Laboratory - Chemistry and C hemistry - challengeon 10-03-2021 ALP [Catalytic activity/Vol] 80 U/L 45-117 [facility] Work Phone: ALT [Catalytic activity/Vol] 21 U/L 13-56 [facility] Work Phone: CO2 [Moles/Vol] 28.0 mmol/L 21.0-32.0 [facility] Work Phone: Globulin (S) [Mass/Vol] 3.4 g/dL 2.2-4.2 [facility] Work Phone: Urea nitrogen/Creatinine [Mass ratio] 19.7 mg/mg 10-20 [facility] Work Phone: Laboratory - Hematology and Cell countson 10-03-2021 Basophils/100 WBC (Unsp spec) 0.6 % 0-1 [facility] Work Phone: Erythrocyte distribution width (RBC) [Entitic vol] 46.0 fL 35.1-43.9 [facility] Work Phone: Erythrocyte distribution width (RBC) [Ratio] 12.7 % 11.6-14.6 [facility] Work Phone: Immature granulocytes/100 WBC (Bld) 0.300 % 0.0-0.9 [facility] Work Phone: Comment on above: IG% - Immature Granu locytes (promyelocytes, myelocytes and metamyelocytes) > 1% indicates that a LEFT SHIFT is Present. MCH (RBC) [Entitic mass] 33.7 pg 27.0-32.0 [facility] Work Phone: Neutrophils/100 WBC (Bld) 36.9 % 47-70 [facility] Work Phone: Nucleated RBC/100 WBC (Bld) [Ratio] 0 % 0-5 [facility] Work Phone: MCHC Auto (RBC) [Mass/Vol]on 10-03-2021 MCHC (RBC) [Mass/Vol] 34.7 g/dL 32-36 [facility] Work Phone: No Panel Informationon 10-03 Estimated GFR (MDRD) Amer 95 mL/min >60 [facility] Work Phone: Comment on above: GFR Calc Estimated GFR (MDRD) Non-Af Amer 79 mL/min >60 [facility] Work Phone: Comment on above: Non- GFR Calc Valproic Acid (Depakene) Level 90 ug/mL 50-100 [facility] Work Phone: Platelets bldon 10-03-2021 Platelets (Bld) [#/Vol] 160 10*3/uL 150-450 [facility] Work Phone: Serum or plasma albumin jacob urement (mass/volume)on 10-03-2021 Albumin [Mass/Vol] 3.0 g/dL 3.2-5.0 [facility] Work Phone: Serum or plasma albumin/glob ulin mass ratioon 10-03-2021 Albumin/Globulin [Mass ratio] 0.9 {ratio} 0.9-2.4 [facility] Work Phone: Serum or plasma calcium jacob urement (mass/volume)on 10-03-2021 Calcium [Mass/Vol] 8.7 mg/dL 8.5-10.1 [facility] Work Phone: Serum or plasma creatinine m easurement (mass/volume)on 10-03-2021 Creatinine [Mass/Vol] 0.76 mg/dL 0.55-1.02 [facility] Work Phone: Comment on above: The validity of the calculated GFR & GFRAA in patients over 70 years has not been determined. Clinical correlation is essential. Serum or plasma phenytoin me asurement (mass/volume)on 10-03-2021 Phenytoin [Mass/Vol] 14.5 mL 10.0-20.0 [facility] Work Phone: Serum or plasma urea nitroge n measurement (mass/volume)on 10-03-2021 Urea nitrogen [Mass/Vol] 15 mg/dL 7-18 [facility] Work Phone: Thin prep Papanicolaou smear with manual screeningon 10-03-2021 Thin prep Papanicolaou smear with manual screening 19 U/L 15-37 [facility] Work Phone: Thin prep Papanicolaou smear with manual screening 6 5-15 [facility] Work Phone: RF Swallowing Function w/ Vi leslee 01-22-2019 RF Swallowing Function w/ Video Patient Name: KATHERYN CHINO Fluoroscopy Exam Date/Time 01/22/2019 13:50:00 EDT Exam RF Swallowing Function w/ Video Ordering Physician DO MENDOZA EUGENE F. Accession Number [id number] CTP4 Codes 73113 () Reason For Exam Dysphagia Report CLINICAL INFORMATION: Difficulty swallowing. Dysphagia. Cookie swallow (modified barium swallow): The patient was evaluated with multiple food approximating media. Preparatory phase: There is decreased bolus formation and oral motor skills with solid consistency. Oral phase: There were oral residuals with pudding and solid consistencies. There is premature pharyngeal entry to the vallecula with pudding and solid consistency and to the piriform sinuses with solid consistency. Otherwise within functional limits. Pharyngeal phase: There is coating of the pharyngeal robison. There were trace vallecular residuals with nectar consistency and piriform sinus residuals with thin likely consistency. There is trace laryngeal penetration with coating of the back of the epiglottis with thin liquid consistency during the swallow. No aspiration was observed. Otherwise within functional limits with all other testing media. Fluoroscopic time: 3 minutes, 14 seconds. Fluoroscopic sequences: 12 See report from speech pathology for additional observations and recommendations. Report Dictated on Final Dictating Physician: MD CARLOS HARLAN Signed Date and Time: 01/22/2019 3:28 pm Signed by: MD CARLOS HARLAN Transcribed Date and Time: 01/22/2019 4:28 Normal [facility] PEER EDUCATOR Modified Barium Swallow Studyon 01-22-2019 PEER EDUCATOR Modified Barium Swallow Study Patient Name: KATHERYN CHINO Fluoroscopy Exam Date/Time 01/22/2019 13:50:00 EDT Exam PEER EDUCATOR Modified Barium Swallow Study Ordering Physician DO MENDOZA EUGENE F. Accession Number [id number] Reason For Exam Dysphagia, oropharyngeal phase Report Date: 01/22/2019 4:28 PM EDT Onset Date: December 2018 Diagnosis: Dysphagia, emesis after taking medications Reason for Referral: Patient was referred for modified barium swallow to further assess oral pharyngeal function, determine appropriate swallowing strategies, assess most appropriate diet. PMHX: Patient's history is significant for osteoporosis, seizures, epilepsy and taking medications since 4 years old, dysarthria, cognitive dysfunction, GERD (protonix 40mg 2x/day). Patient is a resident of [facility] care facility due to decreased ability to independently care for herself independently at home. Monitor consistency of medications. Oxygen Requirement: Room air Current Diet: Regular Thickness of liquid: Thin Prior MBS date and results: Not applicable Textures tested: Thin liquids, nectar thick liquids, pudding, ernesto cracker coated with pudding Patient position: Seated/Lateral TEST RESULTS: Oral Phase: Mild tongue weakness with pooling in the vallecula with pudding and during mastication of cracker. Pooling in the piriform prior to swallow during mastication of cracker. Patient demonstrates mild oral residuals with solid textures, re-swallow is effective to clear residuals given additional time. Pharyngeal Phase: Mild delay of swallow resulted in trace back of epiglottis coating during the swallow x2 with thin liquids, no vocal cord penetration or residuals observed. Coating of pharyngeal wall and piriform with thin and nectar thick liquids. Trace vallecular residuals after nectar thick liquids, cleared with independent re-swallow provided additional time. Pharyngeal residuals cleared with reswallows. Pharyngeal Weakness: Delayed swallow, weak tongue base, weak pharyngeal wall Esophageal Phase: Esophageal scan indicated timely emptying with liquids. General Impressions: Mild to moderate oral deficits due to weak tongue base, decreased oral motor skills and decreased bolus formation and transit resulting in spillage to the level of the vallecula, at times piriforms prior to swallowing onset. Swallows were delayed up to 3 seconds, however airway was adequate with exception of trace epiglottic staining x1 with cup sip thin, x1 with straw sips of thin. Patient with functional swallow given additional time to swallow, soft textures/smaller bolus for mastication, and presentation between bites at a slow rate to allow patient to swallow and re-swallow as needed between bites/drinks (clearing oral and pharyngeal residuals). Patient's swallowing was functional with regular size straw sips. Diet Recommendations / Strategies: Soft foods with thin liquids, external pacing with smaller bites size, reswallows. Recommend administration of pills in puree with slow presentation rate and alternating liquids as needed between bites. Recommended Consultations / Follow Up: ST follow up to address the following goals. Goals: Patient will tolerate recommended diet without evidence of dysphagia or airway penetration. Patient will implement swallowing strategies with minimal cues. Patient will improve swallowing function through oropharyngeal strengthening exercises. G-Code: BEV Radiologist: Dr. Antonio Carlos MD Radiologist Physician Tile Edger: Not applicable Report Dictated on Final Dictating Physician: OLIVIA DUNCAN CCC/JACKI MACKENZIE Signed Date and Time: 01/22/2019 4:43 pm Signed by: OLIVIA DUNCAN CCC/JACKI MACKENZIE Transcribed Date and Time: 01/23/2019 6:58 Normal [facility] PEER EDUCATOR Modified Barium Swallow Study Patient Name: KATHERYN CHINO Fluoroscopy Exam Date/Time 01/22/2019 13:50:00 EDT Exam PEER EDUCATOR Modified Barium Swallow Study Ordering Physician DO MENDOZA EUGENE F. Accession Number [id number] Reason For Exam Dysphagia, oropharyngeal phase Addendum This exam in the patient's exam history was incorrectly coded to this patient. The billing and report corrections were made on accession number [id number] Final Addendum Signed Date and Time: 01/23/2019 9:55 am Signed by: HEMATOLOGIST ONCOLOGIST, SYSTEM Transcribed Date and Time: 01/22/2019 4:46 Transcribed By:TS Report CLINICAL INFORMATION: Difficulty swallowing. Dysphagia. Cookie swallow (modified barium swallow): The patient was evaluated with multiple food approximating media. Preparatory phase: There is decreased bolus formation and oral motor skills with solid consistency. Oral phase: There were oral residuals with pudding and solid consistencies. There is premature pharyngeal entry to the vallecula with pudding and solid consistency and to the piriform sinuses with solid consistency. Otherwise within functional limits. Pharyngeal phase: There is coating of the pharyngeal robison. There were trace vallecular residuals with nectar consistency and piriform sinus residuals with thin likely consistency. There is trace laryngeal penetration with coating of the back of the epiglottis with thin liquid consistency during the swallow. No aspiration was observed. Otherwise within functional limits with all other testing media. Fluoroscopic time: 3 minutes, 14 seconds. Fluoroscopic sequences: 12 See report from speech pathology for additional observations and recommendations. Report Dictated on Report revised on 01/23/2019 09:55:55 EDT by HEMATOLOGIST ONCOLOGIST, SYSTEM Final Dictating Physician: MD CARLOS HARLAN Signed Date and Time: 01/22/2019 3:28 pm Signed by: MD CARLOS HARLAN Transcribed Date and Time: 01/22/2019 3:29 Normal [facility] MRI BRAIN W/O CONTRAST [id number] on 08-23-2018 MRI BRAIN W/O CONTRAST [id number] Performed at [facility] APPROVED BY: Hayes España MD EXAMINATION: MRI BRAIN W/O CONTRAST [id number] CLINICAL HISTORY: Epilepsy. Ataxia. History of seizure disorder. TECHNIQUE: Multiplanar, multisequence MR imaging the brain without contrast. MQ: [id number] COMPARISON: No imaging available for comparison. RESULT: Examination is considered limited due to patient motion. Acute Change: There is no evidence of restricted diffusion to suggest an acute infarct. Hemorrhage: No evidence of acute hemorrhage. Mass Lesion/ Mass Effect: No evidence of an intracranial mass. No significant mass effect. Chronic Change: Scattered patchy areas of increased T2 and FLAIR signal are present in the supratentorial white matter which is a nonspecific finding but likely represents mild chronic microvascular ischemia. No additional significant parenchymal signal abnormalities seen. Parenchyma: Supratentorially, there is no significant volume loss. However, there is marked extra-axial fluid surrounding the bilateral cerebellar hemispheres, with less extensive prominence of the cerebellar folia. 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 No significant mass effect. Ventricles: Normal caliber and morphology. Skull Base: Hypothalamic and pituitary region are grossly normal. Craniocervical junction is normal. No significant marrow replacement process. Vasculature: Major intracranial arterial structures, and dural venous sinuses show typical flow void, suggesting patency by spin echo criteria. Other: The visualized paranasal sinuses and mastoid air cells are clear. The orbits and extracranial soft tissues are unremarkable. IMPRESSION: Limited motion examination. Fairly prominent extra-axial fluid surrounding the bilateral cerebral hemispheres, with somewhat less extensive prominence of the cerebellar folia. 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 The possibility of posterior fossa subdural collections is considered less likely given the appearance and configuration. Comparison with outside imaging would be helpful if available. Mild chronic microvascular ischemic changes throughout the supratentorial white matter. Normal [facility] Teston 08-12-2018 [facility]. Test Result SEE BELOW Normal [facility] Comment on above: Result Comment: Etho suximide 77 Reference range: 40 to 100 Unit: ug/mL (NOTE) INTREPRETIVE INFORMATION: Ethosuximide Reference Interval: Therapeutic range: 40-100 ug/mL Toxic: Greater than 150 ug/mL The therapeutic range is based on serum pre-dose (trough) draw at steady-state concentration. Toxic concentrations may cause dizziness, drowsiness and anorexia. The incidence of adverse reactions is low; however, life-threatening agranulocytosis and fatal pancytopenia have been reported. Ethosuximide Dosage Unknown Ethosuximide Route Unknown Ethosux Dose Frequ Unknown Ethosux Draw Type Unknown Performing Laboratory: Performed By: #### G OX #### [place] [address] Phenytoin, Freeon 08-09-2018 Phenytoin, Free SEE BELOW Normal [facility] Comment on above: Result Comment: Phen ytoin, Free 2.1 H 1.0-2.0 ug/mL Reference ranges and high/low indicator flags are provided as general guidelines only. The treating physician must determine appropriate target levels/dosing based on the specific clinical situation. This test was developed and its performance characteristics determined by [facility] [place] ([facility]). It has not been cleared or approved by the FDA. [facility] is regulated under CLIA as qualified to perform high-complexity testing. This test is used for clinical purposes. It should not be regarded as investigational or for research. Performing Laboratory: [facility] [address] [place] [address] Performed By: #### P TNFX #### [place] [address] Misc. Teston 08-08-2018 [facility] Order Code ETHOS Normal [facility] Comment on above: Performed By: #### G OX #### [place] [address] Test Name ETHOSUXIMIDE Normal [facility] Comment on above: Performed By: #### G OX #### [place] [address] Comprehensive Panelon 2017 Bilirubin [Mass/Vol] 0.3 mg/dL Normal 0.2-1.0 [facility] Comment on above: Performed By: #### P 14 #### [place] [address] ALP [Catalytic activity/Vol] 103 U/L Normal 46-116 [facility] Comment on above: Performed By: #### P 14 #### [place] [address] AST [Catalytic activity/Vol] 14 U/L Normal 9-37 [facility] Comment on above: Performed By: #### P 14 #### [place] [address] Creatinine [Mass/Vol] 0.74 mg/dL Normal 0.51-0.95 [facility] Comment on above: Performed By: #### P 14 #### [address] [address] Protein [Mass/Vol] 7.1 g/dL Normal 6.4-8.2 [facility] Comment on above: Performed By: #### P 14 #### [facility] [address] [place], [place] [address] ALT [Catalytic activity/Vol] 18 U/L Normal 12-78 [facility] Comment on above: Performed By: #### P 14 #### [facility] [address] [place], [place] [address] Albumin [Mass/Vol] 3.7 g/dL Normal 3.4-5.0 [facility] Comment on above: Performed By: #### P 14 #### [facility] [address] [place], [place] [address] Anion gap [Moles/Vol] 12 mmol/L Normal 8-16 [facility] Comment on above: Performed By: #### P 14 #### [facility] [address] [place], [place] [address] CO2 [Moles/Vol] 28 mmol/L Normal 21-32 [facility] Comment on above: Performed By: #### P 14 #### [facility] [address] [place], [place] [address] Urea nitrogen [Mass/Vol] 11 mg/dL Normal 7-18 [facility] Comment on above: Performed By: #### P 14 #### [facility] [address] [place], [place] [address] Calcium [Mass/Vol] 9.1 mg/dL Normal 8.5-10.1 [facility] Comment on above: Performed By: #### P 14 #### [facility] [address] [place], [place] [address] Glucose [Mass/Vol] 71 mg/dL Normal 70-99 [facility] Comment on above: Performed By: #### P 14 #### [facility] [address] [place], [place] [address] Chloride [Moles/Vol] 105 mmol/L Normal 98-107 [facility] Comment on above: Performed By: #### P 14 #### [facility] [address] [place], [place] [address] Potassium [Moles/Vol] 4.8 mmol/L Normal 3.5-5.1 [facility] Comment on above: Performed By: #### P 14 #### [facility] [address] [place] [address] Sodium [Moles/Vol] 140 mmol/L Normal 136-145 [facility] Comment on above: Performed By: #### P 14 #### [place] [address] Dilantin,Randomon 08-07-2018 INR Coag (Bld) [Relative time] 13.0 mg/L Normal 10.0-20.0 [facility] Comment on above: Performed By: #### D AMY #### [place] [address] Hemogramon 08-07-2018 Erythrocyte distribution width (RBC) [Ratio] 12.9 % Normal 11.7-14.4 [facility] Comment on above: Performed By: #### C BC1 #### [place] [address] Hematocrit (Bld) [Volume fraction] 43.8 % Normal 34.1-44.9 [facility] Comment on above: Performed By: #### C BC1 #### [place] [address] Hemoglobin (Bld) [Mass/Vol] 14.4 g/dL Normal 11.2-15.7 [facility] Comment on above: Performed By: #### C BC1 #### [place] [address] MCH (RBC) [Entitic mass] 31.4 pg Normal 25.6-32.2 [facility] Comment on above: Performed By: #### C BC1 #### [place] [address] MCHC (RBC) [Mass/Vol] 32.9 % Normal 31.6-34.8 [facility] Comment on above: Performed By: #### C BC1 #### [place] [address] MCV (RBC) [Entitic vol] 95.6 fL High 79.4-94.8 [facility] Comment on above: Performed By: #### C BC1 #### [facility] [address] [place] [address] Platelet mean volume (Bld) [Entitic vol] 11.7 fL Normal 9.4-12.3 [facility] Comment on above: Performed By: #### C BC1 #### [facility] [address] [place] [address] Platelets (Bld) [#/Vol] 219 thou/cmm Normal 182-369 [facility] Comment on above: Performed By: #### C BC1 #### [facility] [address] [place] [address] RBC (Bld) [#/Vol] 4.58 mil/cmm Normal 3.93-5.22 [facility] Comment on above: Performed By: #### C BC1 #### [place] [address] RDW SD 45.6 fl Normal 36.4-46.3 [facility] Comment on above: Performed By: #### C BC1 #### [place] [address] WBC (Bld) [#/Vol] 5.66 thou/cmm Normal 3.98-10.04 [facility] Comment on above: Performed By: #### C BC1 #### [place] [address] MDRD GFRon 08-07-2018 GFR/1.73 sq M predicted among non-blacks MDRD (S/P/Bld) [Vol rate/Area] mL/min/{1.73_m2} Normal >60mL/min/1 .73m2 [facility] Comment on above: Result Comment: If t he patient is , multiply the result by 1.210. Performed By: #### G FR #### [place] [id number] Valproic Acid,Mobile.on 2017 Valproic Acid,Mobile. 73 mg/L Normal 50-100 [facility] Comment on above: Performed By: #### V ALPR #### [facility] [address] [place], [place] [address] Ammoniaon 06-06-2018 Ammonia mass conc (P) ug/dL Normal 9-30 [facility] Comment on above: Performed By: #### H EMDF, NH33, CMP3, MG3, VALP3, PTN3 #### [facility] [address] [place] [address] CT Head or Brain w/o Contras ton 06-06-2018 CT Head or Brain w/o Contrast Patient Name: KATHERYN CHINO CT Exam Date/Time 06/06/2018 17:12:[address] Head or Brain w/o Contrast Ordering Physician DWAYNE ROMAN DANIEL M Accession Number [id number] CPT4 Codes 75906 () Reason For Exam seizure, headache Report CLINICAL INFORMATION: Seizure. Headache. Transient alteration of awareness. CT HEAD WITHOUT INTRAVENOUS CONTRAST: Volume acquisition CT images are obtained from foramen magnum to vertex without intravenous contrast with axial, coronal and sagittal 2-D reconstructions. Comparison is made to the examination of 11/15/2014. The ventricles and cerebral sulci are unremarkable in size and configuration particularly for age. There is cerebellar atrophy, unchanged. No intra- axial mass lesion or mass-effect is seen. There is minimally decreased density in the deep and periventricular white matter which is nonspecific and most likely related to mild chronic ischemia and/or small vessel disease, unchanged. There is no evidence of acute intracranial hemorrhage or other focal abnormal intra-axial densities. IMPRESSION: 1. Cerebellar atrophy, unchanged. 2. Mild chronic deep and periventricular cerebral white matter changes similar to prior examination. 3. No evidence of acute intracranial abnormality or significant interval change. Report Dictated on Final Dictating Physician: MD CARLOS HARLAN Signed Date and Time: 06/06/2018 5:19 pm Signed by: MD CARLOS HARLAN Transcribed Date and Time: 06/06/2018 5:20 Normal [facility] Comp Metabolic Panelon 06-06 ALT enzyme act/vol 24 U/L Normal 13-69 [facility] Comment on above: Performed By: #### H EMDF, NH33, CMP3, MG3, VALP3, PTN3 #### [facility] [address] [place] [address] Calcium mass conc 10.1 mg/dL Normal 8.4-10.4 [facility] Comment on above: Performed By: #### H EMDF, NH33, CMP3, MG3, VALP3, PTN3 #### [facility] [address] [place] [address] Glucose mass conc 86 mg/dL Normal 70-100 [facility] Comment on above: Performed By: #### H EMDF, NH33, CMP3, MG3, VALP3, PTN3 #### [facility] [address] [place] [address] ALP enzyme act/vol 90 U/L Normal 38-126 [facility] Comment on above: Performed By: #### H EMDF, NH33, CMP3, MG3, VALP3, PTN3 #### [facility] [address] [place] [address] Anion gap molar conc 7 Normal [facility] Comment on above: Performed By: #### H EMDF, NH33, CMP3, MG3, VALP3, PTN3 #### [facility] [address] [place] [address] AST enzyme act/vol 23 U/L Normal 15-46 [facility] Comment on above: Performed By: #### H EMDF, NH33, CMP3, MG3, VALP3, PTN3 #### [facility] [address] [place] [address] Bilirubin mass conc 0.5 mg/dL Normal 0.2-1.3 [facility] Comment on above: Performed By: #### H EMDF, NH33, CMP3, MG3, VALP3, PTN3 #### [facility] [address] [place] [address] CO2 molar conc 29 mmol/L Normal 22-30 [facility] Comment on above: Performed By: #### H EMDF, NH33, CMP3, MG3, VALP3, PTN3 #### [facility] [address] [place] [address] Creatinine mass conc 0.62 mg/dL Normal 0.52-1.25 [facility] Comment on above: Performed By: #### H EMDF, NH33, CMP3, MG3, VALP3, PTN3 #### [facility] [address] [place] [address] GFR/1.73 sq M predicted among blacks MDRD vol rate/area (S/P/Bld) mL/min/{1.73_m2} Normal >60 [facility] Comment on above: Performed By: #### H EMDF, NH33, CMP3, MG3, VALP3, PTN3 #### [facility] [address] [place] [address] GFR/1.73 sq M predicted among non-blacks MDRD vol rate/area (S/P/Bld) mL/min/{1.73_m2} Normal >60 [facility] Comment on above: Result Comment: Sour ce- MDRD equation with creatinine calibration to IDMS(NKDEP) eGFR not recommended for drug dose adjustment Performed By: #### H EMDF, NH33, CMP3, MG3, VALP3, PTN3 #### [facility] [address] [place] [address] Protein mass conc 7.1 g/dL Normal 6.3-8.2 [facility] Comment on above: Performed By: #### H EMDF, NH33, CMP3, MG3, VALP3, PTN3 #### [facility] [address] [place] [address] Urea nitrogen mass conc 15 mg/dL Normal 7-20 [facility] Comment on above: Performed By: #### H EMDF, NH33, CMP3, MG3, VALP3, PTN3 #### [facility] [address] [place] [address] Potassium molar conc 4.7 mmol/L Normal 3.5-5.1 [facility] Comment on above: Performed By: #### H EMDF, NH33, CMP3, MG3, VALP3, PTN3 #### [facility] [address] [place] [address] Sodium molar conc 139 mmol/L Normal 137-145 [facility] Comment on above: Performed By: #### H EMDF, NH33, CMP3, MG3, VALP3, PTN3 #### [facility] [address] [place] [address] Albumin mass conc 4.5 g/dL Normal 3.5-5.0 [facility] Comment on above: Performed By: #### H EMDF, NH33, CMP3, MG3, VALP3, PTN3 #### [facility] [address] [place] [address] Chloride molar conc 103 mmol/L Normal 98-107 [facility] Comment on above: Performed By: #### H EMDF, NH33, CMP3, MG3, VALP3, PTN3 #### [facility] [address] [place] [address] Hemogram w/ Autodiffon 06-06 Abs Baso Cnt 0.1 10*3/uL Normal 0.0-0.2 [facility] Comment on above: Performed By: #### H EMDF, NH33, CMP3, MG3, VALP3, PTN3 #### [facility] [address] [place] [address] Abs Neutrophile Cnt 4.4 10*3/uL Normal 1.8-7.0 [facility] Comment on above: Performed By: #### H EMDF, NH33, CMP3, MG3, VALP3, PTN3 #### [facility] [address] [place] [address] Basophils/100 WBC (Bld) 1.0 % Normal 0.0-2.0 [facility] Comment on above: Performed By: #### H EMDF, NH33, CMP3, MG3, VALP3, PTN3 #### [facility] [address] [place] [address] Eosinophils #/vol (Bld) 0.0 10*3/uL Normal 0.0-0.5 [facility] Comment on above: Performed By: #### H EMDF, NH33, CMP3, MG3, VALP3, PTN3 #### [facility] [address] [place] [address] Eosinophils/100 WBC (Bld) 0.4 % Low 1.0-6.0 [facility] Comment on above: Performed By: #### H EMDF, NH33, CMP3, MG3, VALP3, PTN3 #### [facility] [address] [place] [address] Erythrocyte distribution width Ratio (RBC) 12.8 % Normal 11.5-14.5 [facility] Comment on above: Performed By: #### H EMDF, NH33, CMP3, MG3, VALP3, PTN3 #### [facility] [address] [place] [address] Granulocytes/100 WBC (Bld) 61.3 % Normal 40.0-80.0 [facility] Comment on above: Performed By: #### H EMDF, NH33, CMP3, MG3, VALP3, PTN3 #### [facility] [address] [place] [address] Hematocrit Volume Fraction (Bld) 40.5 % Normal 35.0-47.0 [facility] Comment on above: Performed By: #### H EMDF, NH33, CMP3, MG3, VALP3, PTN3 #### [facility] [address] [place] [address] Hemoglobin mass conc (Bld) 14.1 g/dL Normal 11.7-16.0 [facility] Comment on above: Performed By: #### H EMDF, NH33, CMP3, MG3, VALP3, PTN3 #### [facility] [address] [place] [address] Lymphocytes #/vol (Bld) 2.1 10*3/uL Normal 1.0-4.3 [facility] Comment on above: Performed By: #### H EMDF, NH33, CMP3, MG3, VALP3, PTN3 #### [facility] [address] [place] [address] Lymphocytes/100 WBC (Bld) 28.8 % Normal 20.0-40.0 [facility] Comment on above: Performed By: #### H EMDF, NH33, CMP3, MG3, VALP3, PTN3 #### [facility] [address] [place] [address] MCH Entitic mass (RBC) 32.3 pg Normal 26.0-34.0 [facility] Comment on above: Performed By: #### H EMDF, NH33, CMP3, MG3, VALP3, PTN3 #### [facility] [address] [place] [address] MCHC mass conc (RBC) 34.8 % Normal 32.0-36.0 [facility] Comment on above: Performed By: #### H EMDF, NH33, CMP3, MG3, VALP3, PTN3 #### [facility] [address] [place] [address] MCV Entitic volume (RBC) 93.0 fL Normal 79.0-98.0 [facility] Comment on above: Performed By: #### H EMDF, NH33, CMP3, MG3, VALP3, PTN3 #### [facility] [address] [place] [address] Monocytes #/vol (Bld) 0.6 10*3/uL Normal 0.0-0.8 [facility] Comment on above: Performed By: #### H EMDF, NH33, CMP3, MG3, VALP3, PTN3 #### [facility] [address] [place] [address] Monocytes/100 WBC (Bld) 8.5 % Normal 2.0-10.0 [facility] Comment on above: Performed By: #### H EMDF, NH33, CMP3, MG3, VALP3, PTN3 #### [facility] [address] [place] [address] Platelet mean volume Entitic volume (Bld) 10.1 fL Normal 7.4-10.4 [facility] Comment on above: Performed By: #### H EMDF, NH33, CMP3, MG3, VALP3, PTN3 #### [facility] [address] [place] [address] Platelets #/vol (Bld) 195 10*3/uL Normal 140-440 [facility] Comment on above: Performed By: #### H EMDF, NH33, CMP3, MG3, VALP3, PTN3 #### [facility] [address] [place] [address] RBC #/vol (Bld) 4.36 10*6/uL Normal 3.80-5.20 [facility] Comment on above: Performed By: #### H EMDF, NH33, CMP3, MG3, VALP3, PTN3 #### [facility] [address] [place] [address] WBC #/vol (Bld) 7.2 10*3/uL Normal 3.6-10.7 [facility] Comment on above: Performed By: #### H EMDF, NH33, CMP3, MG3, VALP3, PTN3 #### [facility] [address] [place] [address] Magnesiumon 06-06-2018 Magnesium mass conc 2.0 mg/dL Normal 1.6-2.3 [facility] Comment on above: Performed By: #### H EMDF, NH33, CMP3, MG3, VALP3, PTN3 #### [facility] [address] [place] [address] Phenytoin, Totalon 8 Phenytoin, Total 6.8 ug/mL Low 10.0-20.0 [facility] Comment on above: Performed By: #### H EMDF, NH33, CMP3, MG3, VALP3, PTN3 #### [facility] [address] [place] [address] Valproic Acidon 06-06-2018 Protein mass conc 38 ug/mL Low 50-120 [facility] Comment on above: Performed By: #### H EMDF, NH33, CMP3, MG3, VALP3, PTN3 #### [facility] [address] [place] [address] Vital Signs Date Time Vital Sign Value Performing Clinician Facility 02-25-2025 14:06-0400 Body mass index (BMI) [Ratio] 32.74 kg/m2 Lolita Jain PA-C Work Phone: [facility] 02-25-2025 14:06-0400 Body weight 81.19 kg Lolita Cristobal PA-C Work Phone: [facility] 02-25-2025 14:06-0400 Diastolic blood pressure 67 mm[Hg] Lolita Cristobal PA-C Work Phone: [facility] 02-25-2025 14:06-0400 Heart rate 71 /min Lolita Cristobal PA-C Work Phone: [facility] 02-25-2025 14:06-0400 SaO2% (BldA) [Mass fraction] 96 % Lolita Cristobal PA-C Work Phone: [facility] 02-25-2025 14:06-0400 Systolic blood pressure 142 mm[Hg] Lolita Cristobal PA-C Work Phone: [facility] 01-15-2025 08:01-0400 Diastolic blood pressure 73 mm[Hg] Jayant Jimenez MD Work Phone: [facility] 01-15-2025 08:01-0400 Heart rate 76 /min Jayant Jimenez MD Work Phone: [facility] 01-15-2025 08:01-0400 Systolic blood pressure 135 mm[Hg] Jayant Jimenez MD Work Phone: [facility] 01-15-2025 07:54-0400 Body height 157.5 cm Jayant Jimenez MD Work Phone: [facility] 01-15-2025 07:54-0400 Body mass index (BMI) [Ratio] 30.36 kg/m2 Jayant Jimenez MD Work Phone: [facility] 01-15-2025 07:54-0400 Body weight 75.3 kg Jayant Jimenez MD Work Phone: [facility] 01-15-2025 07:54-0400 Respiratory rate 18 /min Jayant Jimenez MD Work Phone: [facility] 12-08-2024 07:28-0500 Body temperature 98.01 [degF] Miriam Hennessy DO Work Phone: [facility] [employer] 12-08-2024 07:28-0500 Diastolic blood pressure 69 mm[Hg] Miriam Hennessy DO Work Phone: [facility] 12-08-2024 07:28-0500 Heart rate 70 /min Miriam Hennessy DO Work Phone: [facility] 12-08-2024 07:28-0500 Respiratory rate 18 /min Miriam Hennessy DO Work Phone: [facility] 12-08-2024 07:28-0500 SaO2% (BldA) [Mass fraction] 100 % Miriam Hennessy DO Work Phone: [facility] 12-08-2024 07:28-0500 Systolic blood pressure 136 mm[Hg] Miriam Hennessy DO Work Phone: [facility] 12-03-2024 20:24-0500 Body height 160 cm Miriam Hennessy DO Work Phone: [facility] 12-03-2024 20:24-0500 Body mass index (BMI) [Ratio] 31.87 kg/m2 Miriam Hennessy DO Work Phone: [facility] 12-03-2024 20:24-0500 Body weight 81.6 kg Miriam Hennessy DO Work Phone: [facility] 12-03-2024 16:00-0500 Diastolic blood pressure 66 mm[Hg] Todd Velasquez MD [facility] 12-03-2024 16:00-0500 Heart rate 89 /min Todd Velasquez MD [facility] 12-03-2024 16:00-0500 Inhaled oxygen flow rate 4 L/min Todd Velasquez MD [facility] 12-03-2024 16:00-0500 Respiratory rate 31 /min Todd Velasquez MD [facility] 12-03-2024 16:00-0500 SaO2% (BldA) [Mass fraction] 96 % Todd Velasquez MD [facility] 12-03-2024 16:00-0500 Systolic blood pressure 95 mm[Hg] Todd Velasquez MD [facility] 12-03-2024 13:00-0500 Body temperature 98.2 [degF] Todd Velasquez MD [facility] 12-03-2024 09:32-0500 Body height 162.56 cm Todd Velasquez MD [facility] 12-03-2024 09:32-0500 Body mass index (BMI) [Ratio] 34 kg/m2 Todd Velasquez MD [facility] 12-03-2024 09:32-0500 Body weight 89.9 kg Todd Velasquez MD [facility] 11-26-2024 10:56-0500 Body height 157.5 cm Bone Bath [facility] 09-24-2024 07:55-0500 Body height 160 cm Jayant Jimenez MD Work Phone: [facility] 09-24-2024 07:55-0500 Body mass index (BMI) [Ratio] 31.89 kg/m2 Jayant Jimenez MD Work Phone: [facility] 09-24-2024 07:55-0500 Body weight 81.65 kg Jayant Jimenez MD Work Phone: [facility] 09-24-2024 07:55-0500 Diastolic blood pressure 81 mm[Hg] Jayant Jimenez MD Work Phone: [facility] 09-24-2024 07:55-0500 Heart rate 77 /min Jayant Jimenez MD Work Phone: [facility] 09-24-2024 07:55-0500 Respiratory rate 16 /min Jayant Jimenez MD Work Phone: [facility] 09-24-2024 07:55-0500 Systolic blood pressure 132 mm[Hg] Jayant Jimenez MD Work Phone: [facility] 09-18-2023 13:27-0500 Diastolic blood pressure 72 mm[Hg] [facility] 09-18-2023 13:27-0500 Heart rate 70 /min [facility] 09-18-2023 13:27-0500 Respiratory rate 20 /min [facility] 09-18-2023 13:27-0500 SaO2% (BldA) [Mass fraction] 94 % [facility] 09-18-2023 13:27-0500 Systolic blood pressure 141 mm[Hg] [facility] 09-18-2023 11:58-0500 Body height 162.56 cm [facility] 09-18-2023 11:58-0500 Body mass index (BMI) [Ratio] 33.7 kg/m2 [facility] 09-18-2023 11:58-0500 Body temperature 98.1 [degF] [facility] 09-18-2023 11:58-0500 Body weight 89 kg [facility] Encounters Encounter Date Encounter Type Care Provider Facility Start: 03-10-2025 ambulatory Toddkathrine Boyd ty:[facility] Start: 03-04-2025 ambulatory Toddkathrine Boyd ty:[facility] Start: 02-27-2025 ambulatory Toddkathrine Boyd ty:[facility] Start: 02-27-2025 Registered Referred Todd Velasquez MD [facility] Start: 02-26-2025 End: 02-26-2025 ambulatory [facility] Start: 02-26-2025 End: 02-26-2025 Patient encounter procedure Guille Bustamante [facility] Comment on above: SPP Osteoporosis - T reatment Referral (Teriparatide); Insurance Authorization (Teriparatide PA Submission pending ) Start: 02-26-2025 End: 02-26-2025 Telephone encounter Lolita Jain PA-C Work Phone: Rheumatology Start: 02-25-2025 End: 02-25-2025 Patient encounter procedure Lolita Jain PA-C Work Phone: Rheumatology Comment on above: Osteoporosis without current pathological fracture, unspecified osteoporosis type (Primary Dx); Wheelchair dependent; 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); History of long-term treatment with high-risk medication Start: 02-25-2025 End: 02-25-2025 ambulatory LOLITAKathrine JAIN Facility:[facility] Start: 02-18-2025 End: 02-18-2025 ambulatory Lolita Jain PHUONGJuvenal Work Phone: Rheumatology Start: 02-18-2025 End: 02-18-2025 E-mail encounter from caregiver Lolita Jain PA-C Work Phone: Rheumatology Start: 02-02-2025 End: 02-02-2025 ambulatory Todd Velasquez MD [facility] Work Phone: Start: 02-02-2025 End: 02-02-2025 Departed Referred Todd Velasquez MD [facility] Start: 02-02-2025 Registered Referred [facility] Start: 02-02-2025 End: 02-02-2025 ambulatory Todd Velasquez Sr. Facility:[facility] Start: 01-28-2025 End: 01-28-2025 ambulatory Todd Velasquez MD [facility] Work Phone: Start: 01-28-2025 End: 01-28-2025 Departed Referred Todd Velasquez MD -[facility] Start: 01-28-2025 Registered Referred Todd Velasquez MD -[facility] Start: 01-28-2025 End: 01-28-2025 ambulatory Todd Velasquez Sr. Facility:[facility] Start: 01-19-2025 End: 01-19-2025 ambulatory Todd Velasquez MD [facility] Work Phone: Start: 01-19-2025 End: 01-19-2025 Departed Referred Todd Velasquez MD -[facility] Start: 01-19-2025 End: 01-19-2025 ambulatory Todd Velasquez Sr. Facility:[facility] Start: 01-16-2025 End: 01-19-2025 Telephone encounter Jyaant Jimenze MD Work Phone: Neurology Comment on above: Medication Problem ( Lacosamide) Start: 01-15-2025 End: 01-15-2025 Patient encounter procedure Jayant Jimenez MD Work Phone: Neurology Epilepsy Comment on above: Intractable epilepsy without status epilepticus, unspecified epilepsy type (HCC); Osteoporosis without current pathological fracture, unspecified osteoporosis type Start: 01-15-2025 End: 01-15-2025 ambulatory ORVILLE MATTEO MENDOZA Facility:[facility] Start: 12-26-2024 End: 12-26-2024 ambulatory Todd Velasquez MD [facility] Work Phone: Start: 12-26-2024 End: 12-26-2024 Departed Referred [facility] [place] Start: 12-26-2024 Registered [facility] Start: 12-26-2024 End: 12-26-2024 ambulatory Todd Velasquez Sr. Facility:[facility] Start: 12-24-2024 End: 12-24-2024 Telephone encounter Jayant Jimenez MD Work Phone: Neurosurgery Comment on above: Orders ([facility] ) Start: 12-23-2024 End: 12-24-2024 Telephone encounter Jayant Jimenez MD Work Phone: Neurology Comment on above: Medication Problem ( Nayzilam - Medication Not Working) Start: 12-19-2024 End: 12-24-2024 Telephone encounter Jayant Jimenez MD Work Phone: Neurology Comment on above: Outside Lab Results (lacosamide) Start: 12-15-2024 End: 12-15-2024 ambulatory Todd Velasquez MD [facility] Work Phone: Start: 12-15-2024 End: 12-15-2024 Departed Referred Todd Velasquez MD -[facility] Start: 12-15-2024 End: 12-15-2024 ambulatory Todd Velasquez Sr. Facility:[facility] Start: 12-10-2024 ambulatory Todd Ron Boyd ty:[facility] Start: 12-10-2024 Registered Referred Toddkathrine Velasquez MD -[facility] Start: 12-04-2024 End: 12-04-2024 Emergency department patient visit [facility] Start: 12-03-2024 End: 12-08-2024 Evaluation and management of inpatient Miriam Hennessy DO Work Phone: [facility] Epilepsy Monitoring [facility] Comment on above: Sepsis due to urinar y tract infection (HCC) (Primary Dx); Breakthrough seizure (CMS/HCC) (HCC); Fever, unspecified fever cause Start: 12-03-2024 End: 12-05-2024 Telephone encounter Jayant Jimenez MD Work Phone: Neurosurgery Comment on above: Other (Seizure monit oring ) Start: 12-03-2024 End: 12-03-2024 Emergency department patient visit Dr. 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 Comment on above: 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 osteop orosis [Z13.820] Start: 11-14-2024 ambulatory Todd Ron Boyd ty:[facility] Start: 11-14-2024 Registered Referred Todd Velasquez MD -[facility] Start: 11-11-2024 End: 11-11-2024 Telephone encounter Jayant Jimenez MD Work Phone: Neurosurgery Comment on above: Received Outside Med ical Records (Seizure monitoring report ) Refill Request Start: 11-10-2024 End: 11-11-2024 Telephone encounter Jayant Jimenez MD Work Phone: Neurology Comment on above: Seizures Start: 11-08-2024 ambulatory Todd Boyd ty:[facility] Start: 11-08-2024 Registered Referred [facility] Start: 11-07-2024 End: 11-10-2024 Telephone encounter Jayant Jiemnez MD Work Phone: Neurology Comment on above: general (seizure mon itoring report) Start: 09-29-2024 ambulatory Todd Boyd ty:[facility] Start: 09-29-2024 Registered Referred Todd Velasquez MD -[facility] Start: 09-26-2024 End: 09-26-2024 Telephone encounter Jayant Jimenez MD Work Phone: Neurology Comment on above: Outside Lab Results ([facility] [place]) Start: 09-26-2024 ambulatory Todd Boyd ty:[facility] Start: 09-26-2024 Registered Referred Todd Velasquez MD -[facility] Start: 09-24-2024 End: 09-24-2024 Patient encounter procedure Jayant Jimenez MD Work Phone: Neurology Epilepsy Comment on above: 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) (Primary Dx); 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 osteoporosis; 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 affecting 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 receptors and estrogen levels; Encounter for screening for osteoporosis Start: 09-24-2024 End: 09-24-2024 ambulatory ORVILLE FELIPE KELLY Facility:[facility] Start: 09-22-2024 ambulatory Todd Boyd ty:[facility] Start: 09-22-2024 Registered Referred Todd Velasquez MD -[facility] Start: 09-19-2024 End: 09-22-2024 Telephone encounter Jayant Jimenez MD Work Phone: Neurology Comment on above: Outside Lab Results (PHENYTOIN) Start: 09-19-2024 ambulatory Todd Boyd ty:[facility] Start: 09-19-2024 Registered Referred Todd Velasquez MD -[facility] Start: 09-17-2024 ambulatory Todd FOX Facili ty:[facility] Start: 09-17-2024 Registered Referred Todd Velasquez MD -[facility] Start: 09-15-2024 ambulatory Todd FOX Facili ty:[facility] Start: 09-05-2024 End: 09-05-2024 Telephone encounter Jayant Jimenez MD Work Phone: Neurology Comment on above: Forms (Review result s and orders) Start: 09-05-2024 End: 09-05-2024 ambulatory Todd FOX Facility:[facility] Start: 08-27-2024 End: 08-29-2024 Telephone encounter Jayant Jimenez MD Work Phone: Neurology Comment on above: Outside Labs Results (VPA) Start: 08-27-2024 End: 08-27-2024 ambulatory Todd FOX Facility:[facility] Start: 08-17-2024 End: 08-20-2024 Evaluation and management of inpatient TAO STARR Facility:[facility] Start: 08-17-2024 End: 08-17-2024 Telephone encounter Francisco Javier Salazar MD Work Phone: General Neurology Start: 08-17-2024 End: 08-17-2024 Emergency department patient visit Hayes Nicholson Facility:[facility] Start: 08-14-2024 End: 08-14-2024 ambulatory Todd FOX Facility:[facility] Start: 08-06-2024 End: 08-06-2024 ambulatory Todd FOX Facility:[facility] Start: 07-07-2024 ambulatory Todd FOX Facili ty:[facility] Start: 04-21-2024 ambulatory Todd FOX Facili ty:[facility] Start: 04-14-2024 ambulatory Todd FOX Facili ty:[facility] Start: 11-05-2023 Registered Referred [facility] Start: 10-29-2023 End: 10-29-2023 ambulatory [facility] Work Phone: Start: 10-29-2023 End: 10-29-2023 Departed Referred [facility] Start: 09-25-2023 End: 09-25-2023 ambulatory [facility] [facility] Work Phone: Start: 09-25-2023 End: 09-25-2023 Departed Referred [facility] Start: 09-18-2023 End: 09-18-2023 Emergency department patient visit [facility] Work Phone: Start: 08-15-2023 End: 08-15-2023 ambulatory [facility] Work Phone: Start: 08-15-2023 End: 08-15-2023 Departed Referred [facility] Start: 08-10-2023 Telephone encounter Neurology Provid er Neurology Comment on above: Release Of Medical R ecords Start: 08-07-2023 Telephone encounter Neurology Provid er Neurology Comment on above: Results Start: 08-06-2023 End: 08-06-2023 ambulatory [facility] Work Phone: Start: 08-06-2023 End: 08-06-2023 Departed Referred [facility] [place] Start: 05-14-2023 End: 05-14-2023 [facility] Start: 11-27-2022 End: 11-27-2022 ambulatory [facility] Work Phone: Start: 11-27-2022 End: 11-27-2022 [facility]ed [facility] Start: 10-30-2022 End: 10-30-2022 [facility]ed [facility] Start: 10-24-2022 End: 10-24-2022 Departed Referred [facility] Start: 01-10-2023 Registered Referred [facility] Start: 09-04-2022 End: 09-04-2022 ambulatory [facility] Work Phone: Start: 09-04-2022 End: 09-04-2022 Departed Referred [facility] Start: 06-12-2022 End: 06-12-2022 ambulatory [facility] Work Phone: Start: 06-12-2022 End: 06-12-2022 Departed Referred [facility] Start: 03-20-2022 End: 03-20-2022 Departed Referred [facility] Start: 12-26-2021 End: 12-26-2021 Departed Referred [facility] Start: 12-26-2021 Registered Referred [facility] Start: 12-21-2021 End: 12-21-2021 Departed Referred [facility] Start: 12-21-2021 Registered Referred [facility] Start: 11-23-2021 End: 11-23-2021 Departed Referred [facility] Start: 11-23-2021 Registered Referred [facility] Start: 10-26-2021 End: 10-26-2021 Departed Referred [facility] Start: 10-03-2021 Registered Referred [facility] Start: 01-22-2019 Patient encounter procedure [facility] Start: 06-06-2018 Emergency department patient visit PROVIDER UNKNOWN [facility] Procedures Date Procedure Procedure Detail Performing Clinician Start: 02-27-2025 Calcium measurement Ignacia Velasquez MD Start: 02-27-2025 Parathyroid hormone measurement Todd Velasquez MD Start: 02-27-2025 Serum inorganic phos phate measurement Todd Velasquez MD Start: 02-27-2025 Vitamin D, 25-hydrox y measurement Todd Velasquez MD Comment on above: Vitamin D StatusDefi ciency: <20 ng/mL (50nmol/L)Insufficiency: 20-30 ng/mL (50-75 nmol/L)Sufficiency: 30-100 ng/mL (75-250 nmol/L)Toxicity: >100 ng/mL (>250 nmol/L) Start: 12-08-2024 Basic metabolic pane l calcium total Fazal Garza MD Work Phone: Start: 12-07-2024 Basic metabolic pane l calcium total Fazal Garza MD Work Phone: Start: 12-06-2024 Basic metabolic pane l calcium total Fazal Garza MD Work Phone: Start: 12-05-2024 Basic metabolic pane l calcium total Fazal Garza MD Work Phone: Start: 12-04-2024 Ct head/brain w/o co ntrast material Charley Laquidara DO Work Phone: Start: 12-04-2024 Drug screen quant dipropylacetic acid free Susan Reyes MD Work Phone: Start: 12-04-2024 Basic metabolic pane l calcium total Fazal Garza MD Work Phone: Start: 12-04-2024 Drug assay valproic dipropylacetic acid total Charley Laquidara DO Work Phone: Start: 12-03-2024 Culture bacterial quanttative colony count urine Rancho Zhou PA-C Work Phone: Start: 12-03-2024 Urinalysis complete panel - Urine Rancho Zhou PA-C Work Phone: Start: 12-03-2024 Ct abdomen & pelvis w/contrast material Rancho Zhou PA-C Work Phone: Start: 12-03-2024 Ecg routine ecg w/le ast 12 lds trcg only w/o i&r Rancho Zhou PA-C Work Phone: Start: 12-03-2024 Drug screen quantita tive phenytoin total Rancho Zhou PA-C Work Phone: Start: 12-03-2024 Radiologic exam ches t single view Rancho Parhamer PA-C Work Phone: Start: 12-03-2024 Respiratory pathogen s DNA and RNA panel - Nasopharynx by RUTH with non-probe detection Fazal Garza MD Work Phone: Start: 12-03-2024 SARS-COV-2, FLU A/B, AND RSV COMBO Rancho Parhamer PA-C Work Phone: Start: 12-03-2024 Bacteria identified in Blood by Culture Rancho Parhamer PA-C Work Phone: Start: 12-03-2024 Comprehensive metabo lic panel Rancho Parhamer PA-C Work Phone: Start: 12-03-2024 Plain chest X-ray Todd Velasquez MD Start: 12-03-2024 Estimated creatinine clearance Todd Velasquez MD Start: 12-03-2024 Measurement of renal function Todd Velasquez MD Comment on above: GFR Calc Start: 12-03-2024 Valproic acid measurement Todd Velasquez MD Start: 11-08-2024 Measurement of renal function Todd Velasquez MD Comment on above: GFR Calc Start: 11-08-2024 Valproic acid measurement Todd Velasquez MD Start: 09-18-2023 Plain chest X-ray Start: 09-18-2023 CT of head without contrast Start: 10-24-2022 Thyrotropin [Units/v olume] in Serum or Plasma Miriam Hennessy DO Work Phone: Plan of Treatment Date Care Activity Detail Author Start: 12-08-2027 Diabetes Screening Diabetes Screening [facility] Start: 08-18-2027 Diabetes Screening Diabetes Screening [facility] Start: 11-26-2026 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 osteoporosis [facility] Start: 07-17-2025 End: 07-17-2025 Patient encounter procedure 07/17/2025 10:00 AM EDT Office Visit Neurology Epilepsy [address] [place] [address] Jayant Jimenez MD [address] [place] [address] 6 month follow-up Neurology Epilepsy Comment on above: 6 month follow-up Start: 06-15-2025 Influenza vaccination Influenza Vaccine (Season Ended) [facility] Start: 05-28-2025 End: 05-28-2025 Patient encounter procedure 05/28/2025 2:30 PM EDT Office Visit Rheumatology [address] [place] [address] Lolita Jain PA-C [address] [place] [address] 3 month follow up Rheumatology Comment on above: 3 month follow up Start: 02-27-2025 Procedure [facility] Start: 02-25-2025 End: 02-25-2025 Patient encounter procedure 02/25/2025 3:00 PM EDT Office Visit Rheumatology [address] [place] [address] Lolita Jain, PA-C [address] [place] [address] osteoporosis Rheumatology Comment on above: osteoporosis Start: 02-25-2025 End: 05-27-2025 25-hydroxyvitamin D3 [Mass/volume] in Serum or Plasma VITAMIN D 25 HYDROXY Lab Routine Osteoporosis without current pathological fracture, unspecified osteoporosis type Expected: 02/25/2025, Expires: 05/27/2025 [facility] Comment on above: Expected: 02/25/2025, Expires: Start: 02-25-2025 End: 05-27-2025 Basic metabolic 2000 panel - Serum or Plasma BASIC METABOLIC PANEL Lab Routine Osteoporosis without current pathological fracture, unspecified osteoporosis type Expected: 02/25/2025, Expires: 05/27/2025 [facility] Work Phone: Comment on above: Expected: 02/25/2025, Expires: Start: 02-25-2025 End: 05-27-2025 Calcium.ionized [Moles/volume] in Blood CALCIUM, IONIZED Lab Routine Osteoporosis without current pathological fracture, unspecified osteoporosis type Expected: 02/25/2025, Expires: 05/27/2025 [facility] Comment on above: Expected: 02/25/2025, Expires: Start: 02-25-2025 End: 05-27-2025 Collagen crosslinked C-telopeptide [Mass/volume] in Serum or Plasma C TELOPEPTIDE, BETA Lab Routine Osteoporosis without current pathological fracture, unspecified osteoporosis type Expected: 02/25/2025, Expires: 05/27/2025 [facility] Comment on above: Expected: 02/25/2025, Expires: Start: 02-25-2025 End: 05-27-2025 Magnesium [Mass/volume] in Serum or Plasma MAGNESIUM Lab Routine Osteoporosis without current pathological fracture, unspecified osteoporosis type Expected: 02/25/2025, Expires: 05/27/2025 [facility] Comment on above: Expected: 02/25/2025, Expires: Start: 02-25-2025 End: 05-27-2025 Parathyrin.intact [Mass/volume] in Serum or Plasma PTH INTACT Lab Routine Osteoporosis without current pathological fracture, unspecified osteoporosis type Expected: 02/25/2025, Expires: 05/27/2025 [facility] Comment on above: Expected: 02/25/2025, Expires: Start: 02-25-2025 End: 05-27-2025 Phosphate [Mass/volume] in Serum or Plasma PHOSPHORUS INORGANIC Lab Routine Osteoporosis without current pathological fracture, unspecified osteoporosis type Expected: 02/25/2025, Expires: 05/27/2025 [facility] Comment on above: Expected: 02/25/2025, Expires: Start: 02-25-2025 End: 05-27-2025 PROTEIN ELECT RND UR W/INTERP PROTEIN ELECT RND UR W/INTERP Lab Routine Osteoporosis without current pathological fracture, unspecified osteoporosis type Expected: 02/25/2025, Expires: 05/27/2025 [facility] Comment on above: Expected: 02/25/2025, Expires: Start: 02-25-2025 End: 05-27-2025 PROTEIN ELECTROPHORESIS SERUM W/INTERP PROTEIN ELECTROPHORESIS SERUM W/INTERP Lab Routine Osteoporosis without current pathological fracture, unspecified osteoporosis type Expected: 02/25/2025, Expires: 05/27/2025 [facility] Comment on above: Expected: 02/25/2025, Expires: Start: 01-15-2025 End: 01-15-2025 Patient encounter procedure 01/15/2025 8:00 AM EDT Office Visit Neurology Epilepsy [address] [place] [address] Jayant Jimenez MD [address] [place] [address] 3 month follow-up Neurology Epilepsy Comment on above: 3 month follow-up Start: 12-03-2024 [facility] Start: 11-26-2024 End: 11-26-2024 Patient encounter procedure 11/26/2024 10:30 AM EST Appointment [facility] [address] [facility] [place] [address] Bone Density(TBS) [facility] Comment on above: Bone Density(TBS) Start: 11-25-2024 End: 11-25-2024 Patient encounter procedure 11/25/2024 8:00 AM EST Appointment [facility] [address] [place] [address] Bone Density(TBS) [facility] Comment on above: Bone Density(TBS) Start: 10-15-2024 Advance Directive Discussion Advance Directive Discussion [facility] Start: 09-24-2024 End: 09-24-2025 Ammonia [Moles/volume] in Plasma AMMONIA Lab Routine 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 osteoporosis Nonintractable generalized idiopathic epilepsy without status epilepticus (HCC) Expected: 09/24/2024, Expires: 09/24/2025 [facility] Work Phone: Comment on above: Expected: 09/24/2024, Expires: Start: 09-24-2024 End: 09-24-2024 Patient encounter procedure 09/24/2024 8:00 AM EST Office Visit Neurology Epilepsy [address] [place] [address] Jayant Jimenez MD [address] [place] [address] Hospital Follow up Neurology Epilepsy Comment on above: Hospital Follow up Start: 06-15-2024 Covid-19 Vaccine ( season) Covid-19 Vaccine ( season) [facility] Start: 06-15-2024 Influenza vaccination Influenza Vaccine (#1) [facility] Start: 10-24-2023 Thyroid stimulating hormone measurement TSH Level [facility] Start: 10-15-2023 Advance Directive Discussion Advance Directive Discussion [facility] Start: 09-18-2023 [facility] Start: 09-18-2023 Seizure precautions [facility] Start: 06-15-2023 Influenza vaccination Influenza Vaccine (#1) [facility] Start: 10-15-2022 Advance Directive Discussion Advance Directive Discussion [facility] Start: 10-15-2022 Depression Assessment Depression Assessment [facility] Start: 2022 RSV Immunization for Adults (1 - 1-dose 75+ series) RSV Immunization for Adults (1 - 1-dose 75+ series) [facility] Start: 2022 RSV Vaccine (1 - 1-dose 75+ series) RSV Vaccine (1 - 1-dose 75+ series) [facility] Start: 08-07-2021 Diabetes Screening Diabetes Screening [facility] Start: 2012 Bone Density Screening Bone Density Screening [facility] Start: 2012 Pneumococcal Vaccine: 65+ (1 - PCV) Pneumococcal Vaccine: 65+ (1 - PCV) [facility] Start: 2012 Pneumococcal Vaccine: 65+ (1 of 1 - PCV) Pneumococcal Vaccine: 65+ (1 of 1 - PCV) [facility] Start: 2012 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 osteoporosis Bone Density Screening [facility] Start: 2007 RSV Vaccine (1 - 1-dose 60+ series) RSV Vaccine (1 - 1-dose 60+ series) [facility] Start: 1997 Pneumococcal Vaccine: 50+ (1 of 1 - PCV) Pneumococcal Vaccine: 50+ (1 of 1 - PCV) [facility] Start: 1997 Pneumococcal Vaccine: 50+ Years (1 of 1 - PCV) Pneumococcal Vaccine: 50+ Years (1 of 1 - PCV) [facility] Start: 1997 Shingrix Vaccine (1 of 2) Shingrix Vaccine (1 of 2) [facility] Start: 1997 Zoster Vaccines (1 of 2) Zoster Vaccines (1 of 2) [facility] Start: 1966 DTaP/Tdap/Td Vaccines (1 - Tdap) DTaP/Tdap/Td Vaccines (1 - Tdap) [facility] Start: 1966 Urine microalbumin profile DTaP,Tdap,Td Vaccine (1 - Tdap) [facility] Start: 1965 Anxiety Screening Anxiety Screening [facility] Start: 1965 Depression Screening Depression Screening [facility] Start: 1965 Hepatitis C Screening Hepatitis C Screening [facility] Start: 1965 Hepatitis C screening Hepatitis C Screening [facility] Start: 1959 Depression Monitoring Depression Monitoring [facility] Start: 01-07-1946 Covid-19 Vaccine (#1) Covid-19 Vaccine (#1) [facility] Start: 1947 Lipid panel Lipid Panel [facility] Start: 1945 Medicare Annual Wellness (AWV) Medicare Annual Wellness (AWV) [facility] Albumin/Globulin [Ma ss Ratio] in Serum or Plasma by Electrophoresis [facility] End: 10-24-2025 BD DXA TRABECULAR BONE SCORE (TBS) BD DXA TRABECULAR BONE SCORE (TBS) Radiology Routine 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 osteoporosis 1 Occurrences starting 09/24/2024 until 10/24/2025 [facility] Comment on above: 1 Occurrences starting 09/24/2024 until 10/24/2025 End: 11-26-2024 BD DXA TRABECULAR BONE SCORE (TBS) [facility] Comment on above: 1 Occurrences starting 11/26/2024 until 11/26/2024 CALCIUM, 24 HR URINE CALCIUM, 24 HR URINE Lab Routine Osteoporosis without current pathological fracture, unspecified osteoporosis type Ordered: 02/25/2025 [facility] Comment on above: Ordered: 02/25/2025 CREATININE, 24 HOUR URINE CREATININE, 24 HOUR URINE Lab Routine Osteoporosis without current pathological fracture, unspecified osteoporosis type Ordered: 02/25/2025 [facility] Comment on above: Ordered: 02/25/2025 End: 10-24-2025 DXA Skeletal system.axial Views for bone density DXA-AXIAL SKELETON Radiology Routine 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 and estrogen levels 1 Occurrences starting 09/24/2024 until 10/24/2025 [facility] Comment on above: 1 Occurrences starting 09/24/2024 until 10/24/2025 End: 11-26-2024 DXA Skeletal system.axial Views for bone density [facility] Work Phone: Comment on above: 1 Occurrences starting 11/26/2024 until 11/26/2024 Electrophoresis: albumin [facility] Electrophoresis: [id number] [facility] Electrophoresis: [id number] [facility] Electrophoresis: franky ma globulin [facility] Globulin measurement [facility] End: 12-04-2024 Lacosamide [facility] Work Phone: Comment on above: Once (Lab) for 1 Occurrences starting until 12/04/2024 Patient Education ED Seizure, Re current (Adult) [facility] Work Phone: Patient referral [facility] Work Phone: Protein electrophore sis panel - Serum or Plasma [facility] Serum protein electrophoresis [facility] Total globulins measurement [facility] Immunizations Immunization Date Immunization Notes Care Provider Karishma long 07-11-2022 influenza virus vacc ine, unspecified formulation Miriam Hennessy DO Work Phone: [facility] Payers Date Payer Category Payer Self-pay [id number] 2022 [facility] [id number] 2022 Medicaid [id number] 2016 Medicare supplementa l policy (as second payer) [employer] MEDICARE SUPPLEMENT [id number] 2016 Private Health Insurance 2016 Private Health Insurance [id number] 2015 Medicare MEDICARE PART B ONLY [id number] 2012 Medicare 2012 Medicare [id number] 1945 Unknown [id number] 1945 Unknown [id number] .[id number] Unknown [id number] [id number] .462 Unknown [id number] .462 Unknown [id number] [id number] .462 Unknown [id number] 2.16.840.1.535877.3.579.2 .462 Unknown [id number] 2.16.840.1.963389.3.579.2 .462 Unknown [id number] 2.16.840.1.231385.3.579.2 .462 Unknown [id number] 2.16.840.1.787880.3.579.2 .462 Unknown [id number] 2.16.840.1.940866.3.579.2 .462 Unknown [id number] 2.16.840.1.663034.3.579.2 .462 Unknown [id number] 2.16.840.1.428595.3.579.2 .462 Unknown [id number] 2.16.840.1.676926.3.579.2 .462 Unknown [id number] 2.16.840.1.504131.3.579.2 .462 Unknown [id number] 2.16.840.1.815516.3.579.2 .462 Unknown [id number] 2.16.840.1.673476.3.579.2 .462 Unknown [id number] 2.16.840.1.760093.3.579.2 .462 Unknown [id number] [id number] .462 Unknown [id number] 2.16.840.1.931197.3.579.2 .462 Unknown [id number] 2.16.840.1.692558.3.579.2 .462 Unknown [id number] .462 Social History Date Type Detail [facility] ever [facility] Work Phone: Start: 1945 Sex Assigned At Female W [facility] Start: 08-07-2018 End: 12-03-2024 Tobacco smoking status NHIS Never smoked tobacco [facility] Start: 08-07-2018 End: 09-24-2024 Tobacco use and exposure Smokeless tobacco non-user [facility] Start: 09-01-2019 End: 09-19-2020 History of Social function [facility] Start: 09-01-2019 End: 09-19-2020 Tobacco use panel [facility] Adult Depression Screening Assessment 0 [facility] Start: 1945 Sex Assigned At Not on file C [facility] Start: 09-18-2023 Tobacco smoking stat us NHIS Unknown if ever smoked [facility] Has the electric, ga s, oil, or water company threatened to shut off services in your home in past 12Mo No [facility] (I/We) worried rosibel er (my/our) food would run out before (I/we) got money to buy more. Never true [facility] History of tobacco use Passive smoker [facility] Start: 01-27-2020 Alcoholic beverage intake Current non-drinker of alcohol (finding) [facility] Are you now , , , , never or living with a partner? Never [facility] How often to you hav e a drink containing alcohol? Never [facility] How hard is it for y ou to pay for the very basics like food, housing, medical care, and heating Not very hard [facility] Do you feel stress - tense, restless, nervous, or anxious, or unable to sleep at night because your mind is troubled all the time - these days [OSQ] Not at all [facility] Start: 05-15-2022 End: 02-10-2025 Sex Female (finding) [facility] Functional Status Date Assessment Result Facility 08-20-2024 Are you deaf, or do you have serious difficulty hearing No 08/20/2024 11:29 AM Jennifer Coy RN No [facility] 08-20-2024 Are you blind, or do you have serious difficulty seeing, even when wearing glasses No 08/20/2024 11:29 AM Jennifer Coy, MEGA No [facility] 08-20-2024 Do you have serious difficulty walking or climbing stairs Yes 08/20/2024 11:29 AM Jennifer Coy RN Yes [facility] 08-20-2024 Do you have difficul ty dressing or bathing Yes 08/20/2024 11:29 AM Jennifer Coy RN Yes [facility] 08-20-2024 Because of a physica l, mental, or emotional condition, do you have difficulty doing errands alone such as visiting a physician's office or shopping Yes 08/20/2024 11:29 AM Jennifer Coy RN Yes [facility] Mental Status Date Assessment Result Facility 12-03-2024 Cognitive function Level Of Cons ciousness Awake;Appropriate;Follows Commands;Drowsy [facility] Work Phone: 08-20-2024 Because of a physica l, mental, or emotional condition, do you have serious difficulty concentrating, remembering, or making decisions Yes 08/20/2024 11:29 AM Jennifer Coy RN Yes [facility] 09-18-2023 Cognitive function Voice/Name [facility] Work Phone: Clinical Notes 08-08-2023 to 02-26-2025 Telephone Encounter - Jacki Sumner MA - 02/26/2025 2:54 PM EDTTelephone Encounter - Jacki Sumner MA - 02/26/2025 2:54 PM EDTTelephone Encounter - Felipa Zuñiga LPN - 02/26/2025 11:42 AM EDT Note Date & Type Note Facility 02-26-2025 Telephone encounter Note Hermann Avalos from [facility] called back. Message from Lolita Jain PA-C given and she verbalized understanding. [facility] 02-26-2025 Miscellaneous Notes Hermann Avalos from [facility] called back. Message from Lolita Jain PA-C given and she verbalized understanding. Ok to disregard 24 hour urine testing. Just have her take calcium citrate 600 mg daily, this will be fine with her current dietary intake. Volodymyr from [facility] called into office requesting clarification of calcium citrate supplement. Per office note SHILO velazquez states "The recommendation is [id number] mg of calcium daily between diet and supplement. If she continues to eat 3 servings of dairy per day, I recommend additional 600 mg daily via calcium citrate supplement. " Office note faxed to [facility]. Nurse states that patient in almost completely incontinence and they state a 24 hr urine will be difficult. Please advise. Felipa Zuñiga LPN documented in this encounter [facility] 02-26-2025 Telephone encounter Note Ok to disregard 24 hour urine testing. Just have her take calcium citrate 600 mg daily, this will be fine with her current dietary intake. [facility] 02-26-2025 Telephone encounter Note Volodymyr from [facility] called into office requesting clarification of calcium citrate supplement. Per office note SHILO velazquez states "The recommendation is 1618-5916 mg of calcium daily between diet and supplement. If she continues to eat 3 servings of dairy per day, I recommend additional 600 mg daily via calcium citrate supplement. " Office note faxed to [facility]. Nurse states that patient in almost completely incontinence and they state a 24 hr urine will be difficult. Please advise. Felipa Zuñiga LPN [facility] Work Phone: 02-26-2025 History of Present illness Narrative [facility] received prescription(s) for Teriparatide from [facility]olita [employer] 's office. Benefits investigation was conducted, indicating that a prior authorization is required by patient's insurance plan with [employer]. Note will be updated once prior authorization has been submitted. Krystle Fraga (Dee) [facility] Neurology/Cardiology/Infections Disease [facility] P: F: documented in this encounter [facility] 02-26-2025 Note HNO ID: [id number] Author: ?, ?, ? Service: ? Author Type: ? Type: Progress Notes Filed: 02/26/2025 07:55 Note Text: [facility] received prescription(s) for Teriparatide from [employer] 's office. Benefits investigation was conducted, indicating that a prior authorization is required by patient's insurance plan with [employer]. Note will be updated once prior authorization has been submitted. Krystle Fraga (Dee) [facility] Neurology/Cardiology/Infections Disease [facility] P: F: [facility] 02-26-2025 Note HNO ID: [id number] Author: ?, ?, ? Service: ? Author Type: ? Type: Progress Notes Filed: 02/27/2025 07:44 Note Text: [facility] received prescription(s) for Teriparatide PA was approved with details listed below. Plan Name [employer] PA reference number: [id number] Approval Dates: 10/15/24 - 02/16/27 Prescriptions will now be processed through [facility] for determination of next steps. Petrona Almanza CPhT (Dee) [facility] Neurology/Cardiology/Infections Disease [facility] P: F: [facility] 02-26-2025 Note HNO ID: [id number] Author: ?, ?, ? Service: ? Author Type: ? Type: Progress Notes Filed: 02/26/2025 16:22 Note Text: [facility] received prescription(s) for Teriparatide PA was initiated and pending review. Plan Name: Alessandro Plan Agent/Castellanos: cmmila castellanos [id number] Case: [id number] Timeline: magdalena Almanza CPhT (Dee) [facility] Neurology/Cardiology/Infections Disease [facility] P: F: [facility] 02-25-2025 Instructions Lolita Jain PA-C - 02/25/2025 2:29 PM EDT - Calcium citrate 300 mg-600 mg once daily - Continue Vitamin D 2000 international unit(s) daily - Continue Drinking milk 3 times daily - Get fasting blood work done - I'll send orders to be done at the nursing facility - Do a 24 hour urine test - get the jug today. - Empty first urine of the day into the toilet. From that time on, collect every drop of urine in a 24 hour period until the same time the next day. -I'll send a prescription for Forteo (teriparatide) injections to the [facility] they will reach out regarding shipment Follow up 3 months documented in this encounter [facility] 02-25-2025 History of Present illness Narrative Images from the original note were not included. Osteoporosis and Metabolic Bone Disease CONSULTATION Referring Provider: Jayant Jimenez Date of Service: 02/25/2025 Gender: female Ethnicity: White Age: [age] year old Chief Complaint: New Patient Last Rheumatology visit: None at [facility] Katheryn Chino is a 79 year old White female who presents on 02/25/2025 for in person visit for osteoporosis evaluation. Disease History Osteoporosis History Upper Extremity Fracture (Comment: R arm fracture as a child) Most Recent BMD Daily Calcium diet: 900 mg Daily Vitamin D: 2000 IU Dental: Adtmis some mild pain in R Jaw. No recent extractions Link to FRAX Website RAPID 3 Castellanos Activities of Daily Living No Data Dress self? - Get in and out of bed? - Walk outdoors? - Wash and dry body? - Get in and out of car? - Tobacco Use Never smoked or used smokeless tobacco. Passive Exposure: Past Musculoskeletal History Fall Date Description / Comment 2022 one fall a few years ago, no injury. Wheelchair bound. utilizes assistance from nursing staff Treatment History None Osteoporosis Risk Factors Osteoporosis FRAX Risk Factors Upper Extremity Fracture (Comment: R arm fracture as a child) No family history of osteoporosis No parent with a hip fracture Not a current smoker no significant glucocorticoid use No rheumatoid arthritis No secondary osteoporosis No alcohol use more than 3 units per day Osteoporosis Medication Risk Factors Anti-convulsants Furosemide Proton pump inhibitor Osteoporosis Disease-Specific Risk Factors Weight is not less than 127 lbs Height loss 2 inches Poor balance (Comment: does physical therapy and occupational therapy. Does walking with bars 3 times per week) Fall history Fall Date Description / Comment 2022 one fall a few years ago, no injury. Wheelchair bound. utilizes assistance from nursing staff No history of eating disorders No history of hypercalciuria No history of renal calculi Chronic kidney disease Caffeine intake: 1-3 c/day Exercise routine: minimal exercise Types of exercise: physical therapy Bone Density Reports Last Bone Density DXA-AXIAL SKELETON Exam End: 11/26/2024 11:09 AM (Final result) Narrative: * * *Final Report* * * DATE OF EXAM: Nov 26 2024 11:08AM AWX 0804 - BD DXA - AXIAL SKELETON / PROCEDURE REASON: multiple diagnoses * * * * Physician Interpretation * * * * EXAMINATION: DXA BONE DENSITOMETRY BD DXA - AXIAL SKELETON, BD DXA TRABECLR BONE SCORE (TBS) PATIENT DEMOGRAPHICS: Age: 79 years, Gender: Female SCANNER INFORMATION: DXA Model: [employer] [id number] Date Scanned: 11/26/2024 11:08 AM CLINICAL HISTORY: DIAGNOSTIC 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 osteoporosis senior care (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 Postmenopausal. RISK FACTORS FOR OSTEOPOROSIS AND ASSOCIATED FRACTURES REPORTED BY THIS PATIENT: Please refer to Bone Health Questionnaire in the EMR CURRENT THERAPY: Please refer to Bone Health Questionnaire in the EMR TECHNICAL LIMITATIONS: Degenerative disease of the spine RESULTS: Lumbar spine (L1, L2, L3, L4): 0.888 g/cm2, T-score -2.4, Z-score -1.1 Right Femoral Neck: 0.505 g/cm2, T-score -3.8, Z-score -2.1 Right Total Hip: 0.445 g/cm2, T-score -4.5, Z-score -2.9 Left Femoral Neck: 0.602 g/cm2, T-score -3.1, Z-score -1.4 Left Total Hip: 0.494 g/cm2, T-score -4.1, Z-score -2.5 No comparison data - the patient has not had a previous bone density in the [facility] or the previous bone density was performed on a different DXA machine (new, updated model or different location) within the [facility]. VERTEBRAL FRACTURE ASSESSMENT Not performed. TRABECULAR BONE ASSESSMENT TBS score: 1.113 Bone micro-architecture: Degraded (< or = 1.230) Impression: IMPRESSION: THE LOWEST T-SCORE IS -4.5 IN THE LEFT HIP 1) DIAGNOSIS (based on BMD alone): OSTEOPOROSIS Caution: Medical conditions other than osteoporosis may cause low bone density, such as osteomalacia or renal osteodystrophy. Clinical correlation is necessary. 2) FRACTURE RISK (Based on TBS adjusted FRAX): 10-year absolute fracture risk: - major osteoporotic fracture = 32.8 % - hip fracture = 17.0 % - A diagnosis of Osteoporosis, a 10 year probability of hip fracture greater than or equal to 3% or a 10 year probability of any major osteoporosis-related fracture greater than or equal to 20% should be considered for treatment. - DXA scanner generated FRAX calculations may slightly differ from online FRAX calculations due to differences in software versions. - All recommendations and calculations are to be considered as guidelines and should not replace sound clinical judgement - Caution: Fracture risk may be increased independent of BMD in patients with corticosteroid use, age greater than 65 years, or a history of prior fragility fracture. RECOMMENDATIONS: Follow-up in 2 years or as clinically indicated. Patients that are taking corticosteroids, are transplant recipients or have hyperparathyroidism should have annual follow-up. Follow-up scans should always be done on the same machine for accurate comparison. FOR MORE INFORMATION ABOUT DIAGNOSIS AND TREATMENT: [facility] Center for Osteoporosis and Metabolic Bone Disease:? www.ccf.org/arthritis/osteo National Osteoporosis Foundation:? www.nof.org International Society of Clinical Densitometry www.iscd.org Order Dispatcher Chief: SUNSHINE Transcribe Date/Time: Nov 29 2024 2:05P Dictated by : ALEXA CRUZ MD This examination was interpreted and the report reviewed and electronically signed by: ALEXA CRUZ MD on Nov 29 2024 2:06PM EST BONE DENSITY RESULTS: EXTERNAL WOMEN / ESTROGEN Age of Menarche: 15 years Menstrual history: 12 menses/yr Menopause status: post-menopausal Type of Menopause: natural Previous estrogen use: none Hysterectomy: No Ovaries: intact Breast cancer: No Family history of breast cancer: Yes Family member(s): mother OB History No obstetric history on file. Relevant Previous Investigations Latest Ref Rng & Units 08/07/2018 08/18/2024 Calcium Calcium 8.5 - 10.2 mg/dL 9.1 9.3 Latest Ref Rng & Units 08/07/2018 08/18/2024 Alkaline Phosphatase Alkaline Phosphatase 34 - 123 U/L 103 115 Alkaline Phosphatase 34 - 123 U/L 103 115 Latest Ref Rng & Units 08/07/2018 08/18/2024 Creatinine Creatinine 0.58 - 0.96 mg/dL 0.74 0.81 Latest Ref Rng & Units 08/07/2018 08/18/2024 Protein, Total Protein, Total 6.3 - 8.0 g/dL 7.1 7.4 Latest Ref Rng & Units 08/07/2018 08/18/2024 Albumin Albumin 3.9 - 4.9 g/dL 3.7 4.3 Imaging / Studies Last XR Lumbar Spine - Impression Only No resulted procedures found. Last XR Thoracic Spine - Impression Only No resulted procedures found. Last CT Lumbar Spine - Impression Only No resulted procedures found. Last CT Thoracic Spine - Impression Only No resulted procedures found. Last MRI Lumbar Spine - Impression Only No resulted procedures found. Last MRI Thoracic Spine - Impression Only No resulted procedures found. Review of Systems ROS RHEUMATOLOGYJaw pain: No All other reviewed and negative other than HPI. 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) Seizure (Hcc) Breakthrough Seizure (Hcc) Obesity, Class I, Bmi 30-34.9 Dnr (Do Not Resuscitate) Discussion Goals of Care, Counseling/Discussion Past Medical History PAST MEDICAL HISTORY Diagnosis Date High blood pressure Seizures (HCC) Past Surgical History PAST SURGICAL HISTORY Procedure Laterality Date COLONOSCOPY 03/31/2009 normal EGD 07/13/2016 abnormal LES,hiatal hernia, esophagitis and gastritis Family History FAMILY HISTORY Problem Relation Age of Onset Breast Cancer Mother Social History Social History Tobacco Use Smoking status: Never Passive exposure: Past Smokeless tobacco: Never Medications Present Osteoporosis Medications: Current Anabolic Medications Bone Formation Stimulating Agents - Parathyroid Hormone-Type Start End teriparatide (FORTEO) 20 mcg/dose (560mcg/2.24mL) pen injector 02/25/2025 -- Sig - Route: Inject 20 mcg subcutaneously once daily. - SUBCUTANEOUS Class: [facility] Notes to Pharmacy: Medication naming reflects the most updated labeling for the NDC package size. May fill with deprecated 600 mcg/2.4 mL if needed. Current Calcium, Multivitamin, and Vitamin D Use on File Vitamins - D Derivatives Start End Cholecalciferol, Vitamin D3, (VITAMIN D-3) 2,000 unit cap -- Sig - Route: Take by mouth. - ORAL Class: Historical Med Current Outpatient Medications Medication Sig lacosamide (VIMPAT) 100 mg tab Take 1 tablet by mouth every morning for 180 days. albuterol HFA (PROVENTIL HFA, VENTOLIN HFA) 90 mcg/actuation inhaler Inhale 2 puffs as instructed every 4 hours as needed. menthol (BIOFREEZE, MENTHOL,) 5 % topical gel Apply to affected area. carboxymethylcellulose (REFRESH) 0.5 % drop 1 drop. valproic acid (DEPAKENE) 250 mg capsule Take 500 mg by mouth three times a day. lacosamide (VIMPAT) 150 mg tab Take 1 tablet by mouth daily at bedtime for 180 days. docusate sodium (COLACE) 100 mg capsule Take by mouth. potassium chloride (K-TAB) 10 mEq tablet Take 10 mEq by mouth once daily. ethosuximide (ZARONTIN) 250 mg capsule Take 1 capsule by mouth two times a day. furosemide (LASIX) 20 mg tablet Take 1 tablet by mouth every Sunday, Sunday, and Sunday. escitalopram oxalate (LEXAPRO) 20 mg tablet Take 1 tablet by mouth once daily. levothyroxine (SYNTHROID) 50 mcg tablet Take 1 tablet by mouth daily at 6 am. melatonin 3 mg tablet Take 1 tablet by mouth daily at bedtime. senna (SENNA) 8.6 mg tab Take 8.6 mg by mouth twice daily. sodium phosphate-sodium bisphosphate (FLEET ENEMA) enema 1 enema by RECTAL route one time only. Cholecalciferol, Vitamin D3, (VITAMIN D-3) 2,000 unit cap Take by mouth. Aluminum Hydrox-Magnesium Carb (GAVISCON EXTRA STRENGTH) 254-237.5 mg/5 mL susp Take by mouth. losartan potassium (LOSARTAN ORAL) Take [address]op[address] (PROTONIX) 40 mg tablet Take 40 mg by mouth once daily. acetaminophen (TYLENOL) 325 mg tablet Take 650 mg by mouth every 6 hours as needed. teriparatide (FORTEO) 20 mcg/dose (560mcg/2.24mL) pen injector Inject 20 mcg subcutaneously once daily. Menthol 5.8 mg 5.8 mg. diazePAM (VALTOCO) 10 mg/spray (0.1 mL) nasal spray Use 1 [place] in the nose as needed for seizures lasting longer than 3 minutes. May repeat dose once after 4 hours based on response and tolerability for a maximum of 2 doses per 24-hour period. montelukast (SINGULAIR) 10 mg tablet (Patient not taking: Reported on 09/24/2024) No current facility-administered medications for this visit. Physical Exam BP 142/67 Pulse 71 Wt 81.2 kg (179 lb) SpO2 96% BMI 32.74 kg/m EYES: ELENITA, conjunctiva and sclera normal. EARS: External ears normal. NOSE/SINUS: Nares normal. THROAT: Normal and no erythema. DENTAL: Abnormal: Fair dentition NECK: Neck supple, no adenopathy. HEART: RRR with normal no murmurs, no gallops, no JVD appreciated. LUNGS: Clear to auscultation. LYMPH NODES: No cervical lymphadenopathy and no supraclavicular lymphadenopathy. NEURO: Awake, alert and oriented x 3, Dysarthria noted. Wheelchair dependent. SKIN: Skin color, texture, turgor normal. No rashes or lesions. EXTREMITIES: bilateral LE Edema Examination of Back: Profile -Shoulder height position: Normal -Dorsal kyphosis TS: No -Lumbar curve: Abnormal Back Pain: no Balance: Deferred - patient wheelchair dependent, ambulates with assistance at her nursing facility. 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 She denies knowledge of Past treatments Due for next DXA after 11/29/2026 Osteoporosis FRAX Risk Factors Upper Extremity Fracture (Comment: R arm fracture as a child) No family history of osteoporosis No parent with a hip fracture Not a current smoker no significant glucocorticoid use No rheumatoid arthritis No secondary osteoporosis No alcohol use more than 3 units per day Plan The recommendation is [id number] mg of calcium daily between diet and supplement. If she continues to eat 3 servings of dairy per day, I recommend additional 600 mg daily via calcium citrate supplement. Continue vitamin D 2000 international unit(s) daily - check level Check labs for secondary osteoporosis workup as ordered above. 24 hour urine test looking for hypercalciuria as secondary cause of bone loss Recommend Forteo (teriparatide) injections daily x 2 years - may consider an additional year of treatmeng given degree of bone loss and severity of T-score -4.5. After Anabolic therapy, consider anti-resorptive such as bisphosphonate Discussed use of PTH analog including hypercalcemia, rebound increase in bone turnover upon stopping it, and vasomotor symptoms of dizziness, recommended taking this at night. Provided pt ACR handout Will send order to [facility] while awaiting lab results. Follow up 3 mo to discuss response to treatment Return in about 3 months (around 05/28/2025). Consultation requested by Dr. Jayant Jimenez for an opinion regarding osteoporosis and my final recommendations will be communicated back to the requesting physician by way of shared medical record or letter by US mail. I spent a total of 70 minutes on the date of the service which included preparing to see the patient, [id number] patient care, completing clinical documentation, obtaining and/or reviewing separately obtained history, performing a medically appropriate examination, counseling and educating the patient/family/caregiver, ordering medications, tests, or procedures, and communicating results to the patient/family/caregiver. Lolita Jain PA-C cc: PCP: Orville Mendoza [address] [place] [address] documented in this encounter [facility] 02-25-2025 Note HNO ID: [id number] Author: LOLITA JAIN PA-C Service: ? Author Type: Physician Tile Edger Type: Progress Notes Filed: 02/25/2025 16:03 Note Text: Osteoporosis and Metabolic Bone Disease CONSULTATION Referring Provider: Jayant Jimenez Date of Service: 02/25/2025 Gender: female Ethnicity: White Age: [age] year old Chief Complaint: New Patient Last Rheumatology visit: None at [facility] Katheryn Chino is a 79 year old White female who presents on 02/25/2025 for in person visit for osteoporosis evaluation. Disease History Osteoporosis History Upper Extremity Fracture (Comment: R arm fracture as a child) Most Recent BMD Daily Calcium diet: 900 mg Daily Vitamin D: 2000 IU Dental: Adtmis some mild pain in R Jaw. No recent extractions Link to FRAX Website RAPID 3 Castellanos Activities of Daily Living No Data Dress self? - Get in and out of bed? - Walk outdoors? - Wash and dry body? - Get in and out of car? - Tobacco Use Never smoked or used smokeless tobacco. Passive Exposure: Past Musculoskeletal History Fall Date Description / Comment 2022 one fall a few years ago, no injury. Wheelchair bound. utilizes assistance from nursing staff Treatment History None Osteoporosis Risk Factors Osteoporosis FRAX Risk Factors Upper Extremity Fracture (Comment: R arm fracture as a child) No family history of osteoporosis No parent with a hip fracture Not a current smoker no significant glucocorticoid use No rheumatoid arthritis No secondary osteoporosis No alcohol use more than 3 units per day Osteoporosis Medication Risk Factors Anti-convulsants Furosemide Proton pump inhibitor Osteoporosis Disease-Specific Risk Factors Weight is not less than 127 lbs Height loss 2 inches Poor balance (Comment: does physical therapy and occupational therapy. Does walking with bars 3 times per week) Fall history Fall Date Description / Comment 2022 one fall a few years ago, no injury. Wheelchair bound. utilizes assistance from nursing staff No history of eating disorders No history of hypercalciuria No history of renal calculi Chronic kidney disease Caffeine intake: 1-3 c/day Exercise routine: minimal exercise Types of exercise: physical therapy Bone Density Reports Last Bone Density DXA-AXIAL SKELETON Exam End: 11/26/2024 11:09 AM (Final result) Narrative: * * *Final Report* * * DATE OF EXAM: Nov 26 2024 11:08AM AWX 0804 - BD DXA - AXIAL SKELETON / PROCEDURE REASON: multiple diagnoses * * * * Physician Interpretation * * * * EXAMINATION: DXA BONE DENSITOMETRY BD DXA - AXIAL SKELETON, BD DXA TRABECLR BONE SCORE (TBS) PATIENT DEMOGRAPHICS: Age: 79 years, Gender: Female SCANNER INFORMATION: DXA Model: [email or web address] [id number] Date Scanned: 11/26/2024 11:08 AM CLINICAL HISTORY: 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 Postmenopausal. RISK FACTORS FOR OSTEOPOROSIS AND ASSOCIATED FRACTURES REPORTED BY THIS PATIENT: Please refer to Bone Health Questionnaire in the EMR CURRENT THERAPY: Please refer to Bone Health Questionnaire in the EMR TECHNICAL LIMITATIONS: Degenerative disease of the spine RESULTS: Lumbar spine (L1, L2, L3, L4): 0.888 g/cm2, T-score -2.4, Z-score -1.1 Right Femoral Neck: 0.505 g/cm2, T-score -3.8, Z-score -2.1 Right Total Hip: 0.445 g/cm2, T-score -4.5, Z-score -2.9 Left Femoral Neck: 0.602 g/cm2, T-score -3.1, Z-score -1.4 Left Total Hip: 0.494 g/cm2, T-score -4.1, Z-score -2.5 No comparison data - the patient has not had a previous bone density in the [facility] or the previous bone density was performed on a different DXA machine (new, updated model or different location) within the [facility]. VERTEBRAL FRACTURE ASSESSMENT Not performed. TRABECULAR BONE ASSESSMENT TBS score: 1.113 Bone micro-architecture: Degraded (< or = 1.230) Impression: IMPRESSION: THE LOWEST T-SCORE IS -4.5 IN THE LEFT HIP 1) DIAGNOSIS (based on BMD alone): OSTEOPOROSIS Caution: Medical conditions other than osteoporosis may cause low bone density, such as osteomalacia or renal osteodystrophy. Clinical correlation is necessary. 2) FRACTURE RISK (Based on TBS adjusted FRAX): 10-year absolute fracture risk: - major osteoporotic fracture = 32.8 % - hip fracture = 17.0 % - A diagnosis of Osteoporosis, a 10 year probability of hip fracture greater than or equal to 3% or a 10 year probability of any major osteoporosis-related fracture greater than or equal to 20% should be considered for treatment. - DXA scanner generated FRAX calculations may slightly differ from online FRAX calculations due to differences in software versions. - All recommendations and calculations are to be considered as guidelines and should not replace (more content not included)... [facility] 01-16-2025 Telephone encounter Note The following approved medication requests have been transmitted electronically. Requested Prescriptions Signed Prescriptions Disp Refills lacosamide (VIMPAT) 100 mg tab 90 tablet 1 Sig: Take 1 tablet by mouth every morning for 180 days. Authorizing Provider: MAYDA HOWARD PA-C PDMP website checked and validated. All prescriptions have been APPROPRIATELY filled. No suspicious activity was identified. 01/16/2025 by Mayda Howard PA-C [facility] 01-16-2025 Miscellaneous Notes The following approved medication requests have been transmitted electronically. Requested Prescriptions Signed Prescriptions Disp Refills lacosamide (VIMPAT) 100 mg tab 90 tablet 1 Sig: Take 1 tablet by mouth every morning for 180 days. Authorizing Provider: MAYDA HOWARD PA-C PDMP website checked and validated. All prescriptions have been APPROPRIATELY filled. No suspicious activity was identified. 01/16/2025 by Mayda Howard PA-C 01/15/[address] Jimenez PLAN: Continue Depakote 500 mg TID ( level from December) Continue Vimpat 100-150 mg (Level 4.5) Continue Ethosuximide 250 mg BID Referral to Rheumatology placed- not scheduled yet. Future options: Increase Vimpat to 150 mg BID. Recheck serum ASM levels. Trial of ZNS, Onfi. Data reviewed as above including: electronic medical record FOLLOW-UP: Return in about 6 months (around 07/17/2025). ========= current: LCM: 100/150 11/11/24 LCM titration started: at 50 mg and to titrate to 100 mg BID then switch over to the 100 mg tablets BID Spoke with Katia Confirmed LCM 100/150 they are questioning because only received the 150 mg at bedtime RX routed to have the 100 mg LCM RX for the AM to be sent in. Sandra Casey RN Medication Concern Person Calling Katia Nurse from jail Name of medication Lacosamide Concern with medication They have Katheryn taking 100MG in the morning and 50 mg at night. Per yesterdays appointment it states 150mg at time time. What one should they do ? Patient of Dr. Jimenez documented in this encounter [facility] 01-16-2025 Telephone encounter Note 01/15/[address] Jimenze PLAN: Continue Depakote 500 mg TID ( level from December) Continue Vimpat 100-150 mg (Level 4.5) Continue Ethosuximide 250 mg BID Referral to Rheumatology placed- not scheduled yet. Future options: Increase Vimpat to 150 mg BID. Recheck serum ASM levels. Trial of ZNS, Onfi. Data reviewed as above including: electronic medical record FOLLOW-UP: Return in about 6 months (around 07/17/2025). ========= current: LCM: 100/150 11/11/24 LCM titration started: at 50 mg and to titrate to 100 mg BID then switch over to the 100 mg tablets BID Spoke with Katia Confirmed LCM 100/150 they are questioning because only received the 150 mg at bedtime RX routed to have the 100 mg LCM RX for the AM to be sent in. Sandra Casey RN [facility] 01-16-2025 Telephone encounter Note Medication Concern Person Calling Katia Nurse from jail Name of medication Lacosamide Concern with medication They have Katheryn taking 100MG in the morning and 50 mg at night. Per yesterdays appointment it states 150mg at time time. What one should they do ? Patient of Dr. Jimenez [facility] 01-15-2025 Note HNO ID: [id number] Author: JAYANT JIMENEZ MD Service: ? Author Type: Physician Type: Progress Notes Filed: 01/15/2025 08:54 Note Text: [facility] Patient Name: Katheryn Chino Date of : 1945 ESTABLISHED EPILEPSY CLINIC NOTE 01/15/2025 8:00 AM Reason for Visit: Follow Up and Epilepsy Clinical Summary: Ms. Chino is a 79 year old female seen in [facility]. At today's visit, the patient is accompanied by: Brother EPILEPSY CLASSIFICATION Generalized Epilepsy Seizures: 1. Dialeptic Seizure 2. Generalized Tonic-Clonic Seizure Associated Conditions: - Neurological (Cerebellar ataxia) HISTORY OF PRESENT ILLNESS Handedness: Age of onset: Seizure History and Evolution Siezures began at age 46 year old and there are described as absence and GTC seizures. Started on AEDs and seizures continued to occurred. Brother does not recall previous AEDs. She continued with seizures mainly when she has no compliance with AEDs.Seizures got worse after her menstrual period began at age [age] year old. She alaways lived with her mother who helped her with AEDs, however mother 5 years ago, she started to have no compliance with AEDs . [place] and she has more suervison with AEDs now. 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 She had good seizure control for a few years until covid. Hospitaltization in Aug 2024 for a prolonged GTCS at the facility ( brother reports it lasted ~ 25 mins). Admitted to [facility] where Dilantin and Depakote levels were low. Doses were adjusted- PHT 100 mg TID and VPA 1000 mg TID. Zarontin was continued at 250 mg BID. We switched Dilantin to Lacosamide in 2023 due to breakthrough seizures, fluctuating serum levels, risk of osteroporosis. Interval Seizure History Katheryn is a 79-year-old female with a history of epilepsy, presenting for follow-up. She is accompanied by her brother, who provides additional history. Katheryn experienced a seizure in November, during which she was admitted to the hospital and diagnosed with a UTI. Per my chart review- VPA level was subtherapeutic on 12/03 and 12/04. Unclear if there were any missed doses- brother does not think so. A previous seizure occurred in October, during a period when she was transitioning from Dilantin to Vimpat and had an upper respiratory infection. Her brother notes that she feels more alert since discontinuing Dilantin. She is currently taking Depakote 500 mg three times daily, Vimpat 100 mg in the morning and 150 mg in the evening, and Zarontin 250 mg twice daily. A rescue Nayzilam spray was used during her recent seizures, but it was reportedly ineffective in stopping the episodes. Switched to Valteco She is also diagnosed with osteoporosis, with a T-score of -4.5 and a 10-year major fracture risk of 32%. She participates in physical therapy, including walking with parallel bars, which she believes helps maintain her posture. She is currently taking vitamin D. Katheryn resides in a nursing facility, where she engages in activities such as puzzles, bingo, and games. Her brother reports that the facility is well-run, with a good activity program and attentive staff. Total # of Current Anti-seizure Medications: Side Effects to Current Anti-seizure Medications: Seizure Frequency at First Visit: Longest Seizure-free Interval: CURRENT OUTPATIENT ANTISEIZURE MEDICATIONS (as of the start of the encounter) lacosamide (VIMPAT) 100 mg tab (Taking) Take 100 mg by mouth every morning. valproic acid (DEPAKENE) 250 mg capsule (Taking) Take 500 mg by mouth three times a day. diazePAM (VALTOCO) 10 mg/spray (0.1 mL) nasal spray (Taking As Needed) Use 1 Bridge[place] in the nose as needed for seizures lasting longer than 3 minutes. May repeat dose once after 4 hours based on response and tolerability for a maximum of 2 doses per 24-hour period. ethosuximide (ZARONTIN) 250 mg capsule (Taking) Take 1 capsule by mouth two times a day. lacosamide (VIMPAT) 150 mg tab Take 1 tablet by mouth two times a day for 180 days. lacosamide (VIMPAT) 50 mg tab (Not Taking) Take 1 tablet by mouth daily at bedtime for 7 days, THEN 1 tablet two times a day for 7 days. THEN 1 tablet in the morning and 2 tablets at night for 7 days. Then switch to the 100 mg tablet.. valproic acid (DEPAKENE) 250 mg/5 mL syrup (Not Taking) Take 10 mL by mouth three times a day. phenytoin chewable (DILANTIN) 50 mg tablet (Not Taking) Take 50 mg by mouth daily at bedtime. phenytoin ER (DILANTIN) 100 mg ER capsule (Not Taking) Take 1 capsule by mouth three times a day. Prior Anti-seizure Therapies: Trial Adequacy: Max Daily Dose Achieved: Side Effects: Effectiveness: Comments: Comorbidities: Episode Description: Patient Entered Data: EPILEPSY SCORE No Data PHQ-9 SCORE - ELSA 2 SCORE - (more content not included)... [facility] 01-15-2025 History of Present illness Narrative [facility] Patient Name: Katheryn Chino Date of : 1945 ESTABLISHED EPILEPSY CLINIC NOTE 01/15/2025 8:00 AM Reason for Visit: Follow Up and Epilepsy Clinical Summary: Ms. Chino is a 79 year old female seen in [facility]. At today's visit, the patient is accompanied by: Brother EPILEPSY CLASSIFICATION Generalized Epilepsy Seizures: 1. Dialeptic Seizure 2. Generalized Tonic-Clonic Seizure Associated Conditions: - Neurological (Cerebellar ataxia) HISTORY OF PRESENT ILLNESS Handedness: Age of onset: Seizure History and Evolution Siezures began at age 46 year old and there are described as absence and GTC seizures. Started on AEDs and seizures continued to occurred. Brother does not recall previous AEDs. She continued with seizures mainly when she has no compliance with AEDs.Seizures got worse after her menstrual period began at age [age] year old. She alaways lived with her mother who helped her with AEDs, however mother 5 years ago, she started to have no compliance with AEDs . [place] and she has more suervison with AEDs now. 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 She had good seizure control for a few years until covid. Hospitaltization in Aug 2024 for a prolonged GTCS at the facility ( brother reports it lasted ~ 25 mins). Admitted to [facility] where Dilantin and Depakote levels were low. Doses were adjusted- PHT 100 mg TID and VPA 1000 mg TID. Zarontin was continued at 250 mg BID. We switched Dilantin to Lacosamide in 2023 due to breakthrough seizures, fluctuating serum levels, risk of osteroporosis. Interval Seizure History Katheryn is a 79-year-old female with a history of epilepsy, presenting for follow-up. She is accompanied by her brother, who provides additional history. Katheryn experienced a seizure in November, during which she was admitted to the hospital and diagnosed with a UTI. Per my chart review- VPA level was subtherapeutic on 12/03 and 12/04. Unclear if there were any missed doses- brother does not think so. A previous seizure occurred in October, during a period when she was transitioning from Dilantin to Vimpat and had an upper respiratory infection. Her brother notes that she feels more alert since discontinuing Dilantin. She is currently taking Depakote 500 mg three times daily, Vimpat 100 mg in the morning and 150 mg in the evening, and Zarontin 250 mg twice daily. A rescue Nayzilam spray was used during her recent seizures, but it was reportedly ineffective in stopping the episodes. Switched to Valteco She is also diagnosed with osteoporosis, with a T-score of -4.5 and a 10-year major fracture risk of 32%. She participates in physical therapy, including walking with parallel bars, which she believes helps maintain her posture. She is currently taking vitamin D. Katheryn resides in a nursing facility, where she engages in activities such as puzzles, bingo, and games. Her brother reports that the facility is well-run, with a good activity program and attentive staff. Total # of Current Anti-seizure Medications: Side Effects to Current Anti-seizure Medications: Seizure Frequency at First Visit: Longest Seizure-free Interval: CURRENT OUTPATIENT ANTISEIZURE MEDICATIONS (as of the start of the encounter) lacosamide (VIMPAT) 100 mg tab (Taking) Take 100 mg by mouth every morning. valproic acid (DEPAKENE) 250 mg capsule (Taking) Take 500 mg by mouth three times a day. diazePAM (VALTOCO) 10 mg/spray (0.1 mL) nasal spray (Taking As Needed) Use 1 [place] in the nose as needed for seizures lasting longer than 3 minutes. May repeat dose once after 4 hours based on response and tolerability for a maximum of 2 doses per 24-hour period. ethosuximide (ZARONTIN) 250 mg capsule (Taking) Take 1 capsule by mouth two times a day. lacosamide (VIMPAT) 150 mg tab Take 1 tablet by mouth two times a day for 180 days. lacosamide (VIMPAT) 50 mg tab (Not Taking) Take 1 tablet by mouth daily at bedtime for 7 days, THEN 1 tablet two times a day for 7 days. THEN 1 tablet in the morning and 2 tablets at night for 7 days. Then switch to the 100 mg tablet.. valproic acid (DEPAKENE) 250 mg/5 mL syrup (Not Taking) Take 10 mL by mouth three times a day. phenytoin chewable (DILANTIN) 50 mg tablet (Not Taking) Take 50 mg by mouth daily at bedtime. phenytoin ER (DILANTIN) 100 mg ER capsule (Not Taking) Take 1 capsule by mouth three times a day. Prior Anti-seizure Therapies: Trial Adequacy: Max Daily Dose Achieved: Side Effects: Effectiveness: Comments: Comorbidities: Episode Description: Patient Entered Data: EPILEPSY SCORE No Data PHQ-9 SCORE - ELSA 2 SCORE - ELSA 7 SCORE - QOLIE-10 SCORE (0=worst; 100=best QoL - higher scores represent better function) - LSSS SCORE (0- no seizures 100- most severe possible seizures) - C-SSRS SCREEN - On average, how many hours of sleep do you get in a 24-hour period? - PROMIS Sleep Disturbance T-SCORE - Have you been diagnosed with Sleep Apnea? 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 albuterol HFA (PROVENTIL HFA, VENTOLIN HFA) 90 mcg/actuation inhaler Inhale 2 puffs as instructed every 4 hours as needed. menthol (BIOFREEZE, MENTHOL,) 5 % topical gel Apply to affected area. Menthol 5.8 mg 5.8 mg. carboxymethylcellulose (REFRESH) 0.5 % drop 1 drop. valproic acid (DEPAKENE) 250 mg capsule Take 500 mg by mouth three times a day. diazePAM (VALTOCO) 10 mg/spray (0.1 mL) nasal spray Use 1 Bridge[place] in the nose as needed for seizures lasting longer than 3 minutes. May repeat dose once after 4 hours based on response and tolerability for a maximum of 2 doses per 24-hour period. docusate sodium (COLACE) 100 mg capsule Take by mouth. potassium chloride (K-TAB) 10 mEq tablet Take 10 mEq by mouth once daily. ethosuximide (ZARONTIN) 250 mg capsule Take 1 capsule by mouth two times a day. furosemide (LASIX) 20 mg tablet Take 1 tablet by mouth every Sunday, Sunday, and Sunday. escitalopram oxalate (LEXAPRO) 20 mg tablet Take 1 tablet by mouth once daily. levothyroxine (SYNTHROID) 50 mcg tablet Take 1 tablet by mouth daily at 6 am. melatonin 3 mg tablet Take 1 tablet by mouth daily at bedtime. senna (SENNA) 8.6 mg tab Take 8.6 mg by mouth twice daily. sodium phosphate-sodium bisphosphate (FLEET ENEMA) enema 1 enema by RECTAL route one time only. Cholecalciferol, Vitamin D3, (VITAMIN D-3) 2,000 unit cap Take by mouth. Aluminum Hydrox-Magnesium Carb (GAVISCON EXTRA STRENGTH) 254-237.5 mg/5 mL susp Take by mouth. losartan potassium (LOSARTAN ORAL) Take [address] (PROTONIX) 40 mg tablet Take 40 mg by mouth once daily. acetaminophen (TYLENOL) 325 mg tablet Take 650 mg by mouth every 6 hours as needed. lacosamide (VIMPAT) 150 mg tab Take 1 tablet by mouth daily at bedtime for 180 days. montelukast (SINGULAIR) 10 mg tablet (Patient not taking: Reported on 09/24/2024) No current facility-administered medications for this visit. ALLERGIES No Known Allergies PAST MEDICAL HISTORY Diagnosis Date High blood pressure Seizures (HCC) PAST SURGICAL HISTORY Procedure Laterality Date COLONOSCOPY 03/31/2009 normal EGD 07/13/2016 abnormal LES,hiatal hernia, esophagitis and gastritis FAMILY HISTORY Problem Relation Age of Onset Breast Cancer Mother SOCIAL HISTORY: -Lives in [place], [place] -Patient lives alone? -Vocation: -Education: -Cigarette, alcohol, substance use: -Functional status: -Patient driving? Review of Systems All other systems reviewed and are negative. VITAL SIGNS: BP 135/73 Pulse 76 Resp 18 Ht 157.5 cm (5' 2") Wt 75.3 kg (166 lb) BMI 30.36 kg/m General Examination: She is accompanied By her brother. General: Awake, alert, interactive, no acute distress, good nutritional status, normal development, well-kept Neurological Exam Mental Status Alert, fully oriented, attentive. Severe speech dysarthria Cranial Nerves Face symmetric. Hearing intact with conversational speech. Motor Examination and Coordination Motor examination with normal bulk. 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 Seizure semiology consists of generalized tonic-clonic seizures as well as absence seizures. Family has not noticed absent seizures in a long time. Most recent G TCS in August 2024 was prolonged. Patient has been on chronic ASM therapy with Dilantin, Depakote and ethosuximide. 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 She has been wheelchair-bound due to gait difficulty. Her exam shows severely dysarthric speech likely reflecting cerebellar dysfunction. 01/15/2025: Dilantin switched to Lacosamide- patient feels more awake. DEXA shows osteoporosis. Breakthrough seizure in Oct during URTI and in Nov during UTI and possibly subtherapeutic VPA level. Rechecked level in December 2024 was normal. PLAN: Continue Depakote 500 mg TID ( level from December) Continue Vimpat 100-150 mg (Level 4.5) Continue Ethosuximide 250 mg BID Referral to Rheumatology placed- not scheduled yet. Future options: Increase Vimpat to 150 mg BID. Recheck serum ASM levels. Trial of ZNS, Onfi. Data reviewed as above including: electronic medical record Education Seizure precautions - No driving in the state [facility] until seizure free for 6 months. Please check with local state authorities for state specific driving regulations. - No operating heavy machines - No swimming without supervision or bathing in a bathtub due to risk of drowning in the event of a seizure. Patient may shower. - Avoid unsafe heights, including ladders, due to risk of fall-related injury in the event of a seizure. - Seizure precipitating factors discussed including not taking seizure medications as prescribed, stress, excessive caffeine intake, energy drinks, alcohol, sleep deprivation or any identifiable seizure precipitating factor. I discussed the risks, benefits and alternatives of the medical plan with the patient. Questions were answered. The patient agreed with the plan as discussed. FOLLOW-UP: Return in about 6 months (around 07/17/2025). I spent a total of 30 minutes on the date of the service which included: preparing to see the patient [id number] patient care completing clinical documentation obtaining and/or reviewing separately obtained history performing a medically appropriate examination counseling and educating the patient/family/caregiver ordering medications, tests, or procedures Jayant Jimenez MD cc: Primary Care Physician: Orville Mendoza, DO [address] [id number] Referring: Patient: Ms. Katheryn Chino [id number] [id number] documented in this encounter [facility] 01-15-2025 Instructions Jayant Jimenez MD - 01/15/2025 8:38 AM EDT Summary of the things we discussed today: - Continue taking Depakote 500 mg three times a day as prescribed. - Continue taking Vimpat (lacosamide) 100 mg in the morning and 150 mg in the evening. - Continue taking vitamin D supplement as prescribed. - A rheumatology consultation will be scheduled to evaluate and manage osteoporosis. - Monitor for any new seizures or changes in health and report them to your healthcare provider. Please call my office if you have more seizures or with any seizure related concerns. Seizure precautions - No driving in the state [facility] until seizure free for 6 months. Please check with local state authorities for state specific driving regulations. - No operating heavy machines - No swimming without supervision or bathing in a bathtub due to risk of drowning in the event of a seizure. Patient may shower. - Avoid unsafe heights, including ladders, due to risk of fall-related injury in the event of a seizure. - Seizure precipitating factors discussed including not taking seizure medications as prescribed, stress, excessive caffeine intake, energy drinks, alcohol, sleep deprivation or any identifiable seizure precipitating factor. Jayant Jimenez MD Associate Staff, Epilepsy [facility] January 15, 2025 Office phone: [phone] documented in this encounter [facility] 12-24-2024 Telephone encounter Note The following approved medication requests have been transmitted electronically. Requested Prescriptions Signed Prescriptions Disp Refills diazePAM (VALTOCO) 10 mg/spray (0.1 mL) nasal spray 2 Each 1 Sig: Use 1 Bridge[place] in the nose as needed for seizures lasting longer than 3 minutes. May repeat dose once after 4 hours based on response and tolerability for a maximum of 2 doses per 24-hour period. Authorizing Provider: ARTIS HAMILTON APRN.CNP [facility] 12-24-2024 Miscellaneous Notes The following approved medication requests have been transmitted electronically. Requested Prescriptions Signed Prescriptions Disp Refills diazePAM (VALTOCO) 10 mg/spray (0.1 mL) nasal spray 2 Each 1 Sig: Use 1 Bridge[place] in the nose as needed for seizures lasting longer than 3 minutes. May repeat dose once after 4 hours based on response and tolerability for a maximum of 2 doses per 24-hour period. Authorizing Provider: ARTIS HAMILTON APRN.CNP We can trial Valtoco KLP ODT takes much longer to work Spoke with nurse Becker. Facility DON would like to try another option for seizure rescue medication other than Nayzilam spray. They state it was not effective after x2 doses for last seizure reported on 12/03. If the patient has a prolonged seizure, it takes EMS 30 minutes to arrive and they would like other rescue medication options, if possible. They agree to try Valtoco nasal spray, KLP OTD or other recommendations. LCM 100/150 VPA 500/500 Forwarded to MARIO 2 for review. Silvia Rogers RN Medication Concern Person Calling Rosita Cornejo, from [facility], ask for Pat's nurse Name of medication Nayzilam Concern with medication Nurse states the medication did not work the last time the patient had a seizure. Wants to know if another rescue medication can be prescribed instead. Patient of Dr. Jimenez documented in this encounter [facility] 12-24-2024 Telephone encounter Note We can trial Valtoco KLP ODT takes much longer to work [facility] 12-24-2024 Telephone encounter Note See 12/23/24 phone encounter. Silvia Rogers RN [facility] 12-24-2024 Miscellaneous Notes See 12/23/24 phone encounter. Silvia Rogers RN Level WNL If she has not had further seizures since reaching 100/150 of LCM can continue dose unchanged, any seizures would increase to 150/150 Artis Hamilton APRN.CNP Images from the original note were not included. Current LCM dose 100/150 Forwarded to MARIO 2 [place] for review. Silvia Rogers RN OUTSIDE LAB REPORT FACILITY NAME [facility] PHONE/FAX COLLECTION DATE AND TIME: 12/15/24 540 Uploaded to [facility] [employer] documented in this encounter [facility] 12-24-2024 Telephone encounter Note Spoke with nurse Rosita at [facility]. See 12/23/24 encounter. Silvia Rogers RN [facility] 12-24-2024 Miscellaneous Notes Spoke with nurse Rosita at [facility]. See 12/23/24 encounter. Silvia Rogers RN ORDERS Person requesting order: [facility] Phone number: [phone] Order being requested: Facility: [facility] Patient of Dr. Jimenez Forwarded to Nurse documented in this encounter [facility] 12-24-2024 Telephone encounter Note Spoke with nurse Becker. Facility DON would like to try another option for seizure rescue medication other than Nayzilam spray. They state it was not effective after x2 doses for last seizure reported on 12/03. If the patient has a prolonged seizure, it takes EMS 30 minutes to arrive and they would like other rescue medication options, if possible. They agree to try Valtoco nasal spray, KLP OTD or other recommendations. LCM 100/150 VPA 500/500 Forwarded to MARIO 2 for review. Silvia Rogers RN [facility] 12-24-2024 Telephone encounter Note ORDERS Person requesting order: [facility] Phone number: [phone] Order being requested: Facility: [facility] Patient of Dr. Jimenez Forwarded to Nurse [facility] 12-23-2024 Telephone encounter Note Medication Concern Person Calling Rosita Cornejo, from [facility], ask for Pat's nurse Name of medication Nayzilam Concern with medication Nurse states the medication did not work the last time the patient had a seizure. Wants to know if another rescue medication can be prescribed instead. Patient of Dr. Jimenez [facility] 12-19-2024 Telephone encounter Note Level WNL If she has not had further seizures since reaching 100/150 of LCM can continue dose unchanged, any seizures would increase to 150/150 Artis Hamilton APRN.[employer] [facility] 12-19-2024 Telephone encounter Note Images from the original note were not included. Current LCM dose 100/150 Forwarded to [facility] [employer] [place] for review. iSlvia Rogers RN [facility] 12-19-2024 Telephone encounter Note OUTSIDE LAB REPORT FACILITY NAME [facility] PHONE/FAX COLLECTION DATE AND TIME: 12/15/24 540 Uploaded to [employer] [facility] 12-08-2024 Plan of care note Problem: Knowledge Deficit Goal: Patient/family/caregiver demonstrates understanding of disease process, treatment plan, medications, and discharge instructions Outcome: Completed Problem: Potential for Compromised Skin Integrity Goal: Skin Integrity is Maintained or Improved Outcome: Completed Goal: Nutritional status is improving Outcome: Completed Problem: Urinary Incontinence Goal: Perineal skin integrity is maintained or improved Outcome: Completed Problem: Problem Interventions Goal: Assess Nutritional Intake Outcome: Completed [facility] 12-08-2024 Plan of care note Problem: Knowledge Deficit Goal: Patient/family/caregiver demonstrates understanding of disease process, treatment plan, medications, and discharge instructions Outcome: Completed Problem: Potential for Compromised Skin Integrity Goal: Skin Integrity is Maintained or Improved Outcome: Completed Goal: Nutritional status is improving Outcome: Completed Problem: Urinary Incontinence Goal: Perineal skin integrity is maintained or improved Outcome: Completed Problem: Problem Interventions Goal: Assess Nutritional Intake Outcome: Completed [facility] 12-08-2024 Miscellaneous Notes Problem: Knowledge Deficit Goal: Patient/family/caregiver demonstrates understanding of disease process, treatment plan, medications, and discharge instructions Outcome: Completed Problem: Potential for Compromised Skin Integrity Goal: Skin Integrity is Maintained or Improved Outcome: Completed Goal: Nutritional status is improving Outcome: Completed Problem: Urinary Incontinence Goal: Perineal skin integrity is maintained or improved Outcome: Completed Problem: Problem Interventions Goal: Assess Nutritional Intake Outcome: Completed Problem: Knowledge Deficit Goal: Patient/family/caregiver demonstrates understanding of disease process, treatment plan, medications, and discharge instructions Outcome: Completed Problem: Potential for Compromised Skin Integrity Goal: Skin Integrity is Maintained or Improved Outcome: Completed Goal: Nutritional status is improving Outcome: Completed Problem: Urinary Incontinence Goal: Perineal skin integrity is maintained or improved Outcome: Completed Problem: Problem Interventions Goal: Assess Nutritional Intake Outcome: Completed MAR & Discharge med list transmitted to [facility] via [facility] per TCC request. Transport requested in Roundtrip. Awaiting time confirmation. Confirmed pickup time of 3:00 by transport company Daquan Rayo at phone number . Location of facility drop off is [facility]. Facility notified via [facility], Martine Glasgow notified on secure chat. Pt is stable for DC to return to [facility] SNF. [facility] tasked to arrange transport and to send DC notes/MAR to SNF. Transport arranged for 3:00 today. Pt's brother called, Danny [phone], updates given. Problem: Knowledge Deficit Goal: Patient/family/caregiver demonstrates understanding of disease process, treatment plan, medications, and discharge instructions Outcome: Progressing Problem: Potential for Compromised Skin Integrity Goal: Skin Integrity is Maintained or Improved Outcome: Progressing Goal: Nutritional status is improving Outcome: Progressing Problem: Urinary Incontinence Goal: Perineal skin integrity is maintained or improved Outcome: Progressing Problem: Problem Interventions Goal: Assess Nutritional Intake Outcome: Progressing Problem: Knowledge Deficit Goal: Patient/family/caregiver demonstrates understanding of disease process, treatment plan, medications, and discharge instructions Outcome: Progressing Problem: Potential for Compromised Skin Integrity Goal: Skin Integrity is Maintained or Improved Outcome: Progressing Goal: Nutritional status is improving Outcome: Progressing Problem: Urinary Incontinence Goal: Perineal skin integrity is maintained or improved Outcome: Progressing Problem: Problem Interventions Goal: Assess Nutritional Intake Outcome: Progressing Problem: Knowledge Deficit Goal: Patient/family/caregiver demonstrates understanding of disease process, treatment plan, medications, and discharge instructions 12/06/2024514 by Maria Victoria Zapata RN Outcome: Progressing 12/06/202417 by Maria Victoria Zapata RN Outcome: Progressing Problem: Potential for Compromised Skin Integrity Goal: Skin Integrity is Maintained or Improved 12/06/2024514 by Maria Victoria Zapata RN Outcome: Progressing 12/06/202417 by Maria Victoria Zapata RN Outcome: Progressing Goal: Nutritional status is improving 12/06/2024514 by Maria Victoria Zapata RN Outcome: Progressing 12/06/202417 by Maria Victoria Zapata RN Outcome: Progressing Problem: Urinary Incontinence Goal: Perineal skin integrity is maintained or improved 12/06/2024514 by Maria Victoria Zapata RN Outcome: Progressing 12/06/202417 by Maria Victoria Zapata RN Outcome: Progressing Problem: Knowledge Deficit Goal: Patient/family/caregiver demonstrates understanding of disease process, treatment plan, medications, and discharge instructions Outcome: Progressing Problem: Potential for Compromised Skin Integrity Goal: Skin Integrity is Maintained or Improved Outcome: Progressing Goal: Nutritional status is improving Outcome: Progressing Problem: Urinary Incontinence Goal: Perineal skin integrity is maintained or improved Outcome: Progressing Pt adm from [facility] SNF/LTC, with Sepsis 2nd to UTI. Plan is to return. Facility will adm pt back skilled under Medicare. Called pt's brother Danny [phone] was called and updated. CM to follow. Problem: Knowledge Deficit Goal: Patient/family/caregiver demonstrates understanding of disease process, treatment plan, medications, and discharge instructions Outcome: Progressing Problem: Potential for Compromised Skin Integrity Goal: Skin Integrity is Maintained or Improved Outcome: Progressing Goal: Nutritional status is improving Outcome: Progressing Problem: Urinary Incontinence Goal: Perineal skin integrity is maintained or improved Outcome: Progressing Problem: Knowledge Deficit Goal: Patient/family/caregiver demonstrates understanding of disease process, treatment plan, medications, and discharge instructions Outcome: Progressing Problem: Potential for Compromised Skin Integrity Goal: Skin Integrity is Maintained or Improved Outcome: Progressing Goal: Nutritional status is improving Outcome: Progressing Problem: Urinary Incontinence Goal: Perineal skin integrity is maintained or improved Outcome: Progressing Pt discussed 12-04-24 during interdisciplinary rounds. Pt admitted from [facility] due to seizures. Pt has a history of seizure disorder. No needs anticipated but SW available as needs arise. documented in this encounter [facility] 12-08-2024 Note Formatting of this n ote might be different from the original. MAR & Discharge med list transmitted to [facility] via [facility]port per TCC request. [facility] 12-08-2024 Note Formatting of this n ote might be different from the original. MAR & Discharge med list transmitted to [facility] via [facility] per TCC request. [facility] 12-08-2024 Note Formatting of this n ote might be different from the original. Transport requested in Roundtrip. Awaiting time confirmation. Confirmed pickup time of 3:00 by transport company [employer]quan G[employer] Hannah at phone number . [facility] drop [facility] [place] Facility notified via Martine Arriaza notified on secure chat. [facility] 12-08-2024 Note Formatting of this n ote might be different from the original. Transport requested in Roundtrip. Awaiting time confirmation. Confirmed pickup time of 3:00 by transport company Daquan Rayo at phone number . Location of facility drop off is [facility] [place] [place]. Facility notified via Martine Arriaza notified on secure chat. [facility] 12-08-2024 Note Formatting of this n ote might be different from the original. Pt is stable for DC to return to [facility] SNF. [employer] tasked to arrange transport and to send DC notes/MAR to SNF. Transport arranged for 3:00 today. Pt's brother called, Danny [phone], updates given. [facility] 12-08-2024 Note Formatting of this n ote might be different from the original. Pt is stable for DC to return to [facility] SNF. [employer] tasked to arrange transport and to send DC notes/MAR to SNF. Transport arranged for 3:00 today. Pt's brother called, Danny [phone], updates given. [facility] 12-08-2024 Note Hospitalist Discharg e Summary Katheryn Chino : 1945 Admit date: 12/03/2024 Discharge date: 12/08/2024 Admitting Physician: Fazal Garza MD Primary Care Physician: Orville Mendoza DO Visit Status: inpt Code Status: Full Code BRIEF HOSPITAL COURSE: Katheryn is a 79 y.o. Presenting from [facility] for breakthrough seizure, Was found to meet simple sepsis criteria with UTI as likely source lowering threshold. Additionally patient was in the process of switching seizure prophlaxis medications with their neurologist. Dilantin/vimpat patient unsure in which direction. Reportedly 30 min seizure event at her facility, was not postictal when later arrived to ED and neurologically intact. UC grew e. Coli. Received IV abx. Neurology consulted. Adjusted AED. DC to SNF Acute, acute on chronic, unstable/uncontrolled chronic problems/diagnoses: Breakthrough seizure Abdominal pain w/ nausea, cough, malaise Simple sepsis 2/2 UTI E. Coli UTI Stable chronic problems affecting care, new non-acute diagnoses: MDD recurrent Hypothyroid Mental deficiency with verbal impediment Seizure disorder on prophylactic therapy (in process of changing regimen) Dependent edema Peptic ulcer disease Past Medical History: Diagnosis Date Allergic rhinitis Dependent edema 01/27/2020 Essential hypertension 01/27/2020 Hypothyroidism 01/27/2020 Mental deficiency 01/27/2020 Peptic ulcer disease 01/27/2020 Seizure disorder ([facility] 01/27/2020 Hospital Course: See discharge diagnoses list above and medication adjustments below in med rec.The patient is discharged in improved and stable condition. Consults: IP WOUND CARE NURSE CONSULT TO EVAL IP CONSULT TO NEUROLOGY Discharge Instructions: Diet: Dietary Orders (From admission, onward) Start Ordered 12/04/24 0123 Adult diet Regular Diet effective now Question: Diet type Answer: Regular 12/04/24 0122 Activity: as tolerated Recommended Outpatient Tests: Disposition: Patient discharged in stable condition to snf Greater than 31 minutes spent discharging the patient and coming up with patient discharge plan. Vitals: BP 136/69 Pulse 70 Temp 36.7 ?C (98 ?F) (Temporal) Resp 18 Ht 1.6 m (5' 3") Wt 81.6 kg (179 lb 14.3 oz) SpO2 100% BMI 31.87 kg/m? Pulse Ox: SpO2 Av.7 % Min: 98 % Max: 100 % Supplemental O2: O2 Flow Rate (L/min): 2 L/min LABS: Recent Labs 12/06/2445312/07/2451812/08/24357 NA 141 142 140 K 3.7 3.9 3.9 CL 110* 110* 108* CO2 BUN 12 12 10 CREATININE 0.64 0.64 0.64 GLUCOSE 87 90 87 CALCIUM 8.8 9.0 8.7* Recent Labs 12/06/2445312/07/2451812/08/24357 WBC 5.3 6.1 5.9 RBC 3.66* 3.70* 3.45* HGB 10.5* 10.4* 9.9* HCT 33.0* 32.1* 30.8* MCV 90.2 86.8 89.3 MCH 28.7 28.1 28.7 MCHC 31.8 32.4 32.1 RDW 13.0 13.2 13.1 PLT 158 169 165 MPV 11.7 11.5 11.9 Discharge Medications: Medication List CHANGE how you take these medications * lacosamide 100 MG tablet Commonly known as: Vimpat Take 1 tablet (100 mg) by mouth every morning. What changed: when to take this * lacosamide 150 mg tablet tablet Commonly known as: Vimpat Take 1 tablet (150 mg) by mouth Nightly. What changed: You were already taking a medication with the same name, and this prescription was added. Make sure you understand how and when to take each. valproic acid 250 MG capsule Commonly known as: Depakene Take 2 capsules (500 mg) by mouth 2 times daily. What changed: when to take this * This list has 2 medication(s) that are the same as other medications prescribed for you. Read the directions carefully, and ask your doctor or other care provider to review them with you. CONTINUE taking these medications * acetaminophen 325 MG tablet Commonly known as: Tylenol * acetaminophen 325 MG tablet Commonly known as: Tylenol albuterol 108 (90 Base) MCG/ACT inhaler Biofreeze Professional 5 % gel Generic drug: Menthol (Topical Analgesic) bisacodyl 10 MG suppository Commonly known as: Dulcolax carboxymethylcellulose 0.5 % ophthalmic solution Commonly known as: Refresh Plus cholecalciferol 50 MCG (1999 UT) capsule Commonly known as: Vitamin D-3 Cough Drops 5.8 MG lozenge Generic drug: Menthol docusate sodium 100 MG capsule Commonly known as: Colace escitalopram 20 MG tablet Commonly known as: Lexapro ethosuximide 250 MG capsule Commonly known as: Zarontin furosemide 20 MG tablet Commonly known as: Lasix Gaviscon Extra Strength 254-237.5 MG/5ML suspension Generic drug: Alum Hydroxide-Mag Carbonate levothyroxine 50 MCG tablet Commonly known as: Synthroid, Levoxyl losartan 25 MG tablet Commonly known as: Cozaar magnesium hydroxide 400 MG/5ML suspension Commonly known as: Milk of Magnesia melatonin 3 MG tablet Midazolam 5 MG/0.1ML solution pantoprazole 40 MG EC tablet Commonly known as: ProtoNix potassium chloride CR 10 MEQ ER (more content not included)... [facility] 12-08-2024 Hospital course Narrative Images from the original note were not included. Hospitalist Discharge Summary Katheryn Chino : 1945 Admit date: 12/03/2024 Discharge date: 12/08/2024 Admitting Physician: Fazal Garza MD Primary Care Physician: Orville Mendoza DO Visit Status: inpt Code Status: Full Code BRIEF HOSPITAL COURSE: Katheryn is a 79 y.o. Presenting from [facility] for breakthrough seizure, Was found to meet simple sepsis criteria with UTI as likely source lowering threshold. Additionally patient was in the process of switching seizure prophlaxis medications with their neurologist. Dilantin/vimpat patient unsure in which direction. Reportedly 30 min seizure event at her facility, was not postictal when later arrived to ED and neurologically intact. UC grew e. Coli. Received IV abx. Neurology consulted. Adjusted AED. DC to SNF Acute, acute on chronic, unstable/uncontrolled chronic problems/diagnoses: Breakthrough seizure Abdominal pain w/ nausea, cough, malaise Simple sepsis 2/2 UTI E. Coli UTI Stable chronic problems affecting care, new non-acute diagnoses: MDD recurrent Hypothyroid Mental deficiency with verbal impediment Seizure disorder on prophylactic therapy (in process of changing regimen) Dependent edema Peptic ulcer disease Past Medical History: Diagnosis Date Allergic rhinitis Dependent edema 01/27/2020 Essential hypertension 01/27/2020 Hypothyroidism 01/27/2020 Mental deficiency 01/27/2020 Peptic ulcer disease 01/27/2020 Seizure disorder ([facility]) 01/27/2020 Hospital Course: See discharge diagnoses list above and medication adjustments below in med rec.The patient is discharged in improved and stable condition. Consults: IP WOUND CARE NURSE CONSULT TO EVAL IP CONSULT TO NEUROLOGY Discharge Instructions: Diet: Dietary Orders (From admission, onward) Start Ordered 12/04/24 012 Adult diet Regular Diet effective now Question: Diet type Answer: Regular 12/04/24 0122 Activity: as tolerated Recommended Outpatient Tests: Disposition: Patient discharged in stable condition to snf Greater than 31 minutes spent discharging the patient and coming up with patient discharge plan. Vitals: BP 136/69 Pulse 70 Temp 36.7 C (98 F) (Temporal) Resp 18 Ht 1.6 m (5' 3") Wt 81.6 kg (179 lb 14.3 oz) SpO2 100% BMI 31.87 kg/m Pulse Ox: SpO2 Av.7 % Min: 98 % Max: 100 % Supplemental O2: O2 Flow Rate (L/min): 2 L/min LABS: Recent Labs 12/06/244 12/07/24 0512/08/24 035 NA 141 142 140 K 3.7 3.9 3.9 CL 110* 110* 108* CO2 BUN 12 12 10 CREATININE 0.64 0.64 0.64 GLUCOSE 87 90 87 CALCIUM 8.8 9.0 8.7* Recent Labs 12/06/2445312/07/24 0519 12/08/24 0358 WBC 5.3 6.1 5.9 RBC 3.66* 3.70* 3.45* HGB 10.5* 10.4* 9.9* HCT 33.0* 32.1* 30.8* MCV 90.2 86.8 89.3 MCH 28.7 28.1 28.7 [facility] 31.8 32.4 32.1 RDW 13.0 13.2 13.1 PLT 158 169 165 MPV 11.7 11.5 11.9 Discharge Medications: Medication List CHANGE how you take these medications * lacosamide 100 MG tablet Commonly known as: Vimpat Take 1 tablet (100 mg) by mouth every morning. What changed: when to take this * lacosamide 150 mg tablet tablet Commonly known as: Vimpat Take 1 tablet (150 mg) by mouth Nightly. What changed: You were already taking a medication with the same name, and this prescription was added. Make sure you understand how and when to take each. valproic acid 250 MG capsule Commonly known as: Depakene Take 2 capsules (500 mg) by mouth 2 times daily. What changed: when to take this * This list has 2 medication(s) that are the same as other medications prescribed for you. Read the directions carefully, and ask your doctor or other care provider to review them with you. CONTINUE taking these medications * acetaminophen 325 MG tablet Commonly known as: Tylenol * acetaminophen 325 MG tablet Commonly known as: Tylenol albuterol 108 (90 Base) MCG/ACT inhaler Biofreeze Professional 5 % gel Generic drug: Menthol (Topical Analgesic) bisacodyl 10 MG suppository Commonly known as: Dulcolax carboxymethylcellulose 0.5 % ophthalmic solution Commonly known as: Refresh Plus cholecalciferol 50 MCG (1999 UT) capsule Commonly known as: Vitamin D-3 Cough Drops 5.8 MG lozenge Generic drug: Menthol docusate sodium 100 MG capsule Commonly known as: Colace escitalopram 20 MG tablet Commonly known as: Lexapro ethosuximide 250 MG capsule Commonly known as: Zarontin furosemide 20 MG tablet Commonly known as: Lasix Gaviscon Extra Strength 254-237.5 MG/5ML suspension Generic drug: Alum Hydroxide-Mag Carbonate levothyroxine 50 MCG tablet Commonly known as: Synthroid, Levoxyl losartan 25 MG tablet Commonly known as: Cozaar magnesium hydroxide 400 MG/5ML suspension Commonly known as: Milk of Magnesia melatonin 3 MG tablet Midazolam 5 MG/0.1ML solution pantoprazole 40 MG EC tablet Commonly known as: ProtoNix potassium chloride CR 10 MEQ ER tablet Commonly known as: Klor-Con senna-docusate 8.6-50 MG tablet Commonly known as: Mariya-Colace * This list has 2 medication(s) that are the same as other medications prescribed for you. Read the directions carefully, and ask your doctor or other care provider to review them with you. Where to Get Your Medications You can get these medications from any pharmacy Bring a paper prescription for each of these medications lacosamide 100 MG tablet lacosamide 150 mg tablet tablet valproic acid 250 MG capsule Recommended Follow-up: No follow-up provider specified. Complexity of Follow up: [] Moderate Complexity: follow up within 7-14 calendar days (52697) [x] Severe Complexity: follow up within 7 calendar days (47068) Follow up Testing, Pending results or Referrals at Transitional Care Visit: [x] yes [] no Instructions to MA: Please call patient on day after discharge (must document patient contacted within 2 business days of discharge). Follow up questions for MA: 1. Did you get medications filled and taking them as instructed from discharge? 2. Are you following your discharge instructions from your hospital stay? 3. Please confirm patient is scheduled for a follow up appointment within the above time frame. Signed: Denise Hair DO Division of Hospitalist Medicine [facility] 12/08/2024, 11:02 AM documented in this encounter [facility] 12-08-2024 Hospital Discharge instructions Martine Glasgow RN - 12/08/2024 9:38 AM EST Images from the original note were not included. Continuity of Care Form Patient Name: Katheryn Chino : 1945 Admit date: 12/03/2024 Discharge date: 12/08/2024 Code Status Order: Full Code Advance Directives: N Admitting Physician: Fazal Garza MD PCP: Orville Mendoza DO Discharging Nurse: Nelly Molina Discharging Hospital Unit/Room#: N3-358/N3-358 A Discharging Unit Emergency Contact: Extended Emergency Contact Information Primary Emergency Contact: Danny Chino Mobile Relation: Brother Septic Tank Installer needed? No Past Surgical History: No past surgical history on file. Immunization History: There is no immunization history on file for this patient. Active Problems: Medical Problems Problem List * (Principal) Sepsis due to urinary tract infection (HCC) Dysarthria Ataxia Obesity, Class I, BMI 30-34.9 Breakthrough seizure (CMS/HCC) (HCC) Depression Cerebellar degeneration (CMS/HCC) (HCC) Other specified hypothyroidism Seizure disorder (CMS/HCC) (HCC) Peptic ulcer disease Dependent edema Mental deficiency Essential hypertension Hypothyroidism Allergic rhinitis Isolation/Infection: No active isolations No active infections Nurse Assessment: Last Vital Signs: BP 136/69 Pulse 70 Temp 36.7 C (98 F) (Temporal) Resp 18 Ht 1.6 m (5' 3") Wt 81.6 kg (179 lb 14.3 oz) SpO2 100% BMI 31.87 kg/m Last documented pain score (0-10 scale): Last Weight: Wt Readings from Last 1 Encounters: 12/03/24 81.6 kg (179 lb 14.3 oz) Mental Status: KING Patient Mental Status: oriented, alert, and able to concentrate and follow conversation Forgetful to situation IV Access: KING IV Access: None Nursing Mobility/ADLs: Walking Total assistance Transfer Total assistance Bathing Total assistance Dressing Total assistance Toileting Total assistance Feeding Minimal assistance Program Assistant Minimal assistance Med Delivery yes Wound Care Documentation and Therapy: Elimination: Continence: Bowel: no Bladder: no Urinary Catheter: None Colostomy/Ileostomy/Ileal Conduit: None Date of Last BM: 12/07 No intake or output data in the 24 hours ending 12/08/24 0937 No intake/output data recorded. Safety Concerns: at risk for falls and history of seizures Impairments/Disabilities: none Nutrition Therapy: Current Nutrition Therapy: Oral diet: general Routes of Feeding: oral Liquids: thin liquids Daily Fluid Restriction: no Last Modified Barium Swallow with Video (Video Swallowing Test): not done Treatments at the Time of Hospital Discharge: Respiratory Treatments: Oxygen Therapy: is on oxygen at 3 L/min per nasal cannula. Ventilator: No ventilator support Rehab Therapies: nursing Weight Bearing Status/Restrictions: no restriction Other Medical Equipment (for information only, NOT a DME order): none Other Treatments: Patient's personal belongings (please select all that are sent with patient): clinton RN SIGNATURE: MANAGEMENT/SOCIAL WORK SECTION Inpatient Status Date: 12/03/2024 Discharging to Facility/ Agency Name: 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 signature: ICIAN SECTION Name: Katheryn Chino Prognosis: good Condition at Discharge: stable Rehab Potential (if transferring to Rehab): good Recommended Labs or Other Treatments After Discharge: bmp, cbc 1 week The individual is being admitted to a nursing facility directly from an [facility] or a unit of a [facility] that is not operated by or licensed by [facility] under section 5119.14 or 5160-3-15.1 5 The individual requires the level of services provided by a nursing facility for the condition for which he or she was treated in the hospital and, Physician Certification: I certify the above information and transfer of Katheryn Chino is necessary for the continuing treatment of the diagnosis listed and that she requires [facility] facility for less than 30 days. Update Admission H&P: No change in H&P PHYSICIAN SIGNATURE: documented in this encounter [facility] 12-08-2024 Plan of care note Problem: Knowledge Deficit Goal: Patient/family/caregiver demonstrates understanding of disease process, treatment plan, medications, and discharge instructions Outcome: Progressing Problem: Potential for Compromised Skin Integrity Goal: Skin Integrity is Maintained or Improved Outcome: Progressing Goal: Nutritional status is improving Outcome: Progressing Problem: Urinary Incontinence Goal: Perineal skin integrity is maintained or improved Outcome: Progressing Problem: Problem Interventions Goal: Assess Nutritional Intake Outcome: Progressing [facility] 12-07-2024 Note Hospitalist Progress Note 12/07/2024 Subjective: Admit Date: 12/03/2024 PCP: Orville Mendoza, DO Room#: N3-358/[id number] A BRIEF HOSPITAL COURSE: Katheryn is a 79 y.o. Presenting from [facility] for breakthrough seizure, Was found to meet simple sepsis criteria with UTI as likely source lowering threshold. Additionally patient was in the process of switching seizure prophlaxis medications with their neurologist. Dilantin/vimpat patient unsure in which direction. Reportedly 30 min seizure event at her facility, was not postictal when later arrived to ED and neurologically intact. UC grew e. Coli. Receiving IV abx. Neurology consulted. Resumed home AED. Working towards back to SNF Interval History: Seen at bedside. Appears at her baseline. All questions answered. Adult diet Regular 24HR INTAKE/OUTPUT: Intake/Output Summary (Last 24 hours) at 12/07/2024 0826 Last data filed at 12/06/2024 0955 Gross per 24 hour Intake 300 ml Output 600 ml Net -300 ml Past Medical History: Past Medical History: Diagnosis Date Allergic rhinitis Dependent edema 01/27/2020 Essential hypertension 01/27/2020 Hypothyroidism 01/27/2020 Mental deficiency 01/27/2020 Peptic ulcer disease 01/27/2020 Seizure disorder ([facility]) 01/27/2020 LABS: CBC: Recent Labs 12/05/24 0444 12/06/24 0454 12/07/24 0519 WBC 6.2 5.3 6.1 RBC 3.37* 3.66* 3.70* HGB 9.6* 10.5* 10.4* HCT 30.4* 33.0* 32.1* MCV 90.2 90.2 86.8 RDW 13.3 13.0 13.2 PLT 148 158 169 BMP: Recent Labs 12/05/24 0444 12/06/24 0454 12/07/24 0519 NA 141 141 142 K 3.8 3.7 3.9 CL 110* 110* 110* CO2 22* 24 25 BUN 13 12 12 CREATININE 0.68 0.64 0.64 GLUCOSE 86 87 90 CALCIUM 8.2* 8.8 9.0 ANIONGAP 9 7 7 LIVER PROFILE: No results for input(s): "AST", "ALT", "BILITOT", "ALKPHOS", "PROT" in the last 72 hours. No lab exists for component: LABALBU PT/INR: No results for input(s): "PROTIME", "INR" in the last 72 hours. CARDIAC ENZYMES: No results for input(s): "TROPONINI" in the last 72 hours. Procalcitonin: No results found for: "PROCAL" COVID-19 PCR: No results for input(s): "COVID19" in the last 72 hours. Objective: Vitals: BP 143/70 (BP Location: Left arm, Patient Position: Lying) Pulse 72 Temp 36.4 ?C (97.5 ?F) (Temporal) Resp 18 Ht 1.6 m (5' 3") Wt 81.6 kg (179 lb 14.3 oz) SpO2 95% BMI 31.87 kg/m? Pulse Ox: SpO2 Av.7 % Min: 95 % Max: 98 % Supplemental O2: O2 Flow Rate (L/min): 4 L/min Physical Exam HENT: Head: Normocephalic. Nose: Nose normal. Mouth/Throat: Mouth: Mucous membranes are moist. Eyes: Extraocular Movements: Extraocular movements intact. Conjunctiva/sclera: Conjunctivae normal. Cardiovascular: Rate and Rhythm: Normal rate and regular rhythm. Pulmonary: Effort: Pulmonary effort is normal. Breath sounds: Normal breath sounds. Abdominal: Palpations: Abdomen is soft. Musculoskeletal: General: Normal range of motion. Cervical back: Normal range of motion. Skin: General: Skin is warm. Neurological: General: No focal deficit present. Mental Status: She is alert and oriented to person, place, and time. Psychiatric: Mood and Affect: Mood normal. Behavior: Behavior normal. Medications: Scheduled PRN cefTRIAXone, 1,000 mg, IntraVENous, q24h cholecalciferol, 2,000 Units, Oral, Daily docusate sodium, 100 mg, Oral, Daily escitalopram, 20 mg, Oral, Daily ethosuximide, 250 mg, Oral, BID furosemide, 20 mg, Oral, Once per day on Sunday lacosamide, 100 mg, Oral, q AM lacosamide, 150 mg, Oral, Nightly levothyroxine, 50 mcg, Oral, qAM AC melatonin, 3 mg, Oral, Nightly pantoprazole, 40 mg, Oral, Daily potassium chloride, 10 mEq, Oral, Daily valproic acid, 500 mg, Oral, BID PRN medications: acetaminophen OR acetaminophen, albuterol, bisacodyl, ondansetron ODT OR ondansetron, polyethylene glycol (PEG) 3350 Continuous Assessment Data: (CAT1) Reviewed 3 or more notes from different specialty or health system (each=1). (LOW: 2x CAT1 or independent historian MOD: 3x CAT1 or 1x CAT3 EXTENSIVE: 3x CAT1 and 1x CAT3) Acute, acute on chronic, unstable/uncontrolled chronic problems/diagnoses: Breakthrough seizure Abdominal pain w/ nausea, cough, malaise Simple sepsis 2/2 UTI E. Coli UTI Stable chronic problems affecting care, new non-acute diagnoses: MDD recurrent Hypothyroid Mental deficiency with verbal impediment Seizure disorder on prophylactic therapy (in process of changing regimen) Dependent edema Peptic ulcer disease Plan As a result of the above findings & factors, the following mgmt was pursued: - complete 4 days of IV abx for UTI - neurology has resumed AED- Ethosuximide 250mg BID, VPA 500mg BID , LCM 100mg qAM and 150mg qPM - medically ready for discharge - am labs, replace lytes prn - PT/OT/CM/SW - delirium precautions: increase activity - DVT prophylaxis: enoxaparin and enco (more content not included)... [facility] 12-07-2024 History of Present illness Narrative Hospitalist Progress Note 12/07/2024 Subjective: Admit Date: 12/03/2024 PCP: Orville Mendoza, Room#: [id number]/[id number] A BRIEF HOSPITAL COURSE: Katheryn is a 79 y.o. Presenting from [facility] for breakthrough seizure, Was found to meet simple sepsis criteria with UTI as likely source lowering threshold. Additionally patient was in the process of switching seizure prophlaxis medications with their neurologist. Dilantin/vimpat patient unsure in which direction. Reportedly 30 min seizure event at her facility, was not postictal when later arrived to ED and neurologically intact. UC grew e. Coli. Receiving IV abx. Neurology consulted. Resumed home AED. Working towards back to SNF Interval History: Seen at bedside. Appears at her baseline. All questions answered. Adult diet Regular 24HR INTAKE/OUTPUT: Intake/Output Summary (Last 24 hours) at 12/07/2024 0826 Last data filed at 12/06/2024 0955 Gross per 24 hour Intake 300 ml Output 600 ml Net -300 ml Past Medical History: Past Medical History: Diagnosis Date Allergic rhinitis Dependent edema 01/27/2020 Essential hypertension 01/27/2020 Hypothyroidism 01/27/2020 Mental deficiency 01/27/2020 Peptic ulcer disease 01/27/2020 Seizure disorder ([facility]) 01/27/2020 LABS: CBC: Recent Labs 12/05/24 0444 12/06/24 0454 12/07/24 0519 WBC 6.2 5.3 6.1 RBC 3.37* 3.66* 3.70* HGB 9.6* 10.5* 10.4* HCT 30.4* 33.0* 32.1* MCV 90.2 90.2 86.8 RDW 13.3 13.0 13.2 PLT 148 158 169 BMP: Recent Labs 12/05/24 0444 12/06/24 0454 12/07/24 0519 NA 141 141 142 K 3.8 3.7 3.9 CL 110* 110* 110* CO2 22* 24 25 BUN 13 12 12 CREATININE 0.68 0.64 0.64 GLUCOSE 86 87 90 CALCIUM 8.2* 8.8 9.0 ANIONGAP 9 7 7 LIVER PROFILE: No results for input(s): "AST", "ALT", "BILITOT", "ALKPHOS", "PROT" in the last 72 hours. No lab exists for component: LABALBU PT/INR: No results for input(s): "PROTIME", "INR" in the last 72 hours. CARDIAC ENZYMES: No results for input(s): "TROPONINI" in the last 72 hours. Procalcitonin: No results found for: "PROCAL" COVID-19 PCR: No results for input(s): "COVID19" in the last 72 hours. Objective: Vitals: BP 143/70 (BP Location: Left arm, Patient Position: Lying) Pulse 72 Temp 36.4 C (97.5 F) (Temporal) Resp 18 Ht 1.6 m (5' 3") Wt 81.6 kg (179 lb 14.3 oz) SpO2 95% BMI 31.87 kg/m Pulse Ox: SpO2 Av.7 % Min: 95 % Max: 98 % Supplemental O2: O2 Flow Rate (L/min): 4 L/min Physical Exam HENT: Head: Normocephalic. Nose: Nose normal. Mouth/Throat: Mouth: Mucous membranes are moist. Eyes: Extraocular Movements: Extraocular movements intact. Conjunctiva/sclera: Conjunctivae normal. Cardiovascular: Rate and Rhythm: Normal rate and regular rhythm. Pulmonary: Effort: Pulmonary effort is normal. Breath sounds: Normal breath sounds. Abdominal: Palpations: Abdomen is soft. Musculoskeletal: General: Normal range of motion. Cervical back: Normal range of motion. Skin: General: Skin is warm. Neurological: General: No focal deficit present. Mental Status: She is alert and oriented to person, place, and time. Psychiatric: Mood and Affect: Mood normal. Behavior: Behavior normal. Medications: Scheduled PRN cefTRIAXone, 1,000 mg, IntraVENous, q24h cholecalciferol, 2,000 Units, Oral, Daily docusate sodium, 100 mg, Oral, Daily escitalopram, 20 mg, Oral, Daily ethosuximide, 250 mg, Oral, BID furosemide, 20 mg, Oral, Once per day on Sunday lacosamide, 100 mg, Oral, q AM lacosamide, 150 mg, Oral, Nightly levothyroxine, 50 mcg, Oral, qAM AC melatonin, 3 mg, Oral, Nightly pantoprazole, 40 mg, Oral, Daily potassium chloride, 10 mEq, Oral, Daily valproic acid, 500 mg, Oral, BID PRN medications: acetaminophen OR acetaminophen, albuterol, bisacodyl, ondansetron ODT OR ondansetron, polyethylene glycol (PEG) 3350 Continuous Assessment Data: (CAT1) Reviewed 3 or more notes from different specialty or health system (each=1). (LOW: 2x CAT1 or independent historian MOD: 3x CAT1 or 1x CAT3 EXTENSIVE: 3x CAT1 and 1x CAT3) Acute, acute on chronic, unstable/uncontrolled chronic problems/diagnoses: Breakthrough seizure Abdominal pain w/ nausea, cough, malaise Simple sepsis 2/2 UTI E. Coli UTI Stable chronic problems affecting care, new non-acute diagnoses: MDD recurrent Hypothyroid Mental deficiency with verbal impediment Seizure disorder on prophylactic therapy (in process of changing regimen) Dependent edema Peptic ulcer disease Plan As a result of the above findings & factors, the following mgmt was pursued: - complete 4 days of IV abx for UTI - neurology has resumed AED- Ethosuximide 250mg BID, VPA 500mg BID , LCM 100mg qAM and 150mg qPM - medically ready for discharge - am labs, replace lytes prn - PT/OT/CM/SW - delirium precautions: increase activity - DVT prophylaxis: enoxaparin and encourage ambulation Complexity: Acute illness or injury posing a threat to life or body function (HIGH). Risk: Admission to hospital-level care was considered or occurred (HIGH). Advance Directive: Full Code Anticipated Discharge - Date - 12/07-12/08 - Location - facility - Pending the following - snf acceptance Total time spent (which include face to face and non face to face encounters) : 40 minutes Extended Emergency Contact Information Primary Emergency Contact: Danny Chino Mobile Relation: Brother Septic Tank Installer needed? No Denise Hair DO Division of Hospitalist Medicine [facility] Hospitalist Progress Note 12/06/2024 Subjective: Admit Date: 12/03/2024 PCP: Orville Mendoza DO Room#: [id number]/[id number] A BRIEF HOSPITAL COURSE: Katheryn is a 79 y.o. Presenting from [facility] for breakthrough seizure, Was found to meet simple sepsis criteria with UTI as likely source lowering threshold. Additionally patient was in the process of switching seizure prophlaxis medications with their neurologist. Dilantin/vimpat patient unsure in which direction. Reportedly 30 min seizure event at her facility, was not postictal when later arrived to ED and neurologically intact. UC grew e. Coli. Receiving IV abx. Neurology consulted. Resumed home AED. Interval History: Seen at bedside. Appears at her baseline. All questions answered. Adult diet Regular 24HR INTAKE/OUTPUT: Intake/Output Summary (Last 24 hours) at 12/06/2024 1143 Last data filed at 12/06/2024 0955 Gross per 24 hour Intake 400 ml Output 600 ml Net -200 ml Past Medical History: Past Medical History: Diagnosis Date Allergic rhinitis Dependent edema 01/27/2020 Essential hypertension 01/27/2020 Hypothyroidism 01/27/2020 Mental deficiency 01/27/2020 Peptic ulcer disease 01/27/2020 Seizure disorder (CMS/HCC) 01/27/2020 LABS: CBC: Recent Labs 12/04/24 0537 12/05/24 0444 12/06/24 0454 WBC 7.5 6.2 5.3 RBC 3.56* 3.37* 3.66* HGB 10.3* 9.6* 10.5* HCT 31.7* 30.4* 33.0* MCV 89.0 90.2 90.2 RDW 13.4 13.3 13.0 PLT 150 148 158 BMP: Recent Labs 12/04/24 0537 12/05/24 0444 12/06/24 0454 NA 140 141 141 K 3.8 3.8 3.7 CL 113* 110* 110* CO2 21* 22* 24 BUN 21 13 12 CREATININE 0.73 0.68 0.64 GLUCOSE 97 86 87 CALCIUM 7.8* 8.2* 8.8 ANIONGAP 6 9 7 LIVER PROFILE: Recent Labs 12/03/24 1940 AST 31 ALT 14 BILITOT 0.5 ALKPHOS 90 PROT 7.1 PT/INR: No results for input(s): "PROTIME", "INR" in the last 72 hours. CARDIAC ENZYMES: No results for input(s): "TROPONINI" in the last 72 hours. Procalcitonin: No results found for: "PROCAL" COVID-19 PCR: No results for input(s): "COVID19" in the last 72 hours. Objective: Vitals: BP 131/69 (BP Location: Right arm, Patient Position: Sitting) Pulse 66 Temp 36.7 C (98.1 F) (Temporal) Resp 18 Ht 1.6 m (5' 3") Wt 81.6 kg (179 lb 14.3 oz) SpO2 97% BMI 31.87 kg/m Pulse Ox: SpO2 Av % Min: 97 % Max: 97 % Supplemental O2: O2 Flow Rate (L/min): 2.5 L/min Physical Exam HENT: Head: Normocephalic. Nose: Nose normal. Mouth/Throat: Mouth: Mucous membranes are moist. Eyes: Extraocular Movements: Extraocular movements intact. Conjunctiva/sclera: Conjunctivae normal. Cardiovascular: Rate and Rhythm: Normal rate and regular rhythm. Pulmonary: Effort: Pulmonary effort is normal. Breath sounds: Normal breath sounds. Abdominal: Palpations: Abdomen is soft. Musculoskeletal: General: Normal range of motion. Cervical back: Normal range of motion. Skin: General: Skin is warm. Neurological: General: No focal deficit present. Mental Status: She is alert and oriented to person, place, and time. Psychiatric: Mood and Affect: Mood normal. Behavior: Behavior normal. Medications: Scheduled PRN cefTRIAXone, 1,000 mg, IntraVENous, q24h cholecalciferol, 2,000 Units, Oral, Daily docusate sodium, 100 mg, Oral, Daily escitalopram, 20 mg, Oral, Daily ethosuximide, 250 mg, Oral, BID furosemide, 20 mg, Oral, Once per day on Sunday lacosamide, 100 mg, Oral, q AM lacosamide, 150 mg, Oral, Nightly levothyroxine, 50 mcg, Oral, qAM AC melatonin, 3 mg, Oral, Nightly pantoprazole, 40 mg, Oral, Daily potassium chloride, 10 mEq, Oral, Daily valproic acid, 500 mg, Oral, BID PRN medications: acetaminophen OR acetaminophen, albuterol, bisacodyl, ondansetron ODT OR ondansetron, polyethylene glycol (PEG) 3350 Continuous Assessment Data: (CAT1) Reviewed 3 or more notes from different specialty or health system (each=1). (LOW: 2x CAT1 or independent historian MOD: 3x CAT1 or 1x CAT3 EXTENSIVE: 3x CAT1 and 1x CAT3) Acute, acute on chronic, unstable/uncontrolled chronic problems/diagnoses: Breakthrough seizure Abdominal pain w/ nausea, cough, malaise Simple sepsis 2/2 UTI E. Coli UTI Stable chronic problems affecting care, new non-acute diagnoses: MDD recurrent Hypothyroid Mental deficiency with verbal impediment Seizure disorder on prophylactic therapy (in process of changing regimen) Dependent edema Peptic ulcer disease Plan As a result of the above findings & factors, the following mgmt was pursued: - complete 4 days of IV abx for UTI - neurology has resumed AED- Ethosuximide 250mg BID, VPA 500mg BID , LCM 100mg qAM and 150mg qPM - medically ready for discharge - am labs, replace lytes prn - PT/OT/CM/SW - delirium precautions: increase activity - DVT prophylaxis: enoxaparin and encourage ambulation Complexity: Acute illness or injury posing a threat to life or body function (HIGH). Risk: Admission to hospital-level care was considered or occurred (HIGH). Advance Directive: Full Code Anticipated Discharge - Date - 12/07-12/08 - Location - facility - Pending the following - snf acceptance Total time spent (which include face to face and non face to face encounters) : 40 minutes Extended Emergency Contact Information Primary Emergency Contact: Danny Chino Mobile Relation: Brother Septic Tank Installer needed? No Denise Hair DO Division of Hospitalist Medicine [facility] Nutrition Assessment Type and Reason for Visit: Initial (DT referral (for wound care consult)) Nutrition Recommendations/Plan: Continue with regular diet as tolerated Encouraged small frequent meals to promote po intake Monitor patients willingness to trial ONS Suggest document po intake in nursing flow sheets RD juany to monitor overall nutritional status and follow up weekly Malnutrition Assessment: Malnutrition Status: At risk for malnutrition (Comment) Context: Chronic Illness Findings of the 6 clinical characteristics of malnutrition: Energy Intake: 75% or less estimated energy requirements for 1 month or longer Weight Loss: No significant weight loss Body Fat Loss: No significant body fat loss (appropriate for age) Muscle Mass Loss: No significant muscle mass loss (appropriate for age) Fluid Accumulation: Mild Extremities Grounds Restoration Specialist Strength: Not Performed Nutrition Assessment: 79 y.o. female presented from [facility] for breakthrough seizure, Was found to meet simple sepsis criteria with UTI as likely source lowering threshold. Additionally patient was in the process of switching seizure prophlaxis medications with their neurologist. Dilantin/vimpat patient unsure in which direction. Reportedly 30 min seizure event at her facility, was not postictal when later arrived to ED and neurologically intact. UA was consistent with UTI. Febrile, tachycardic. Patient admitted for further evaluation and management. Neurology consulted and continue to follow. Patient currently ordered regular diet however has had poor po intake last 3 meals. Patient sitting up in bed watching TV during RD visit. Patient reports he had oatmeal and mccann for breakfast this morning and stated "it was alot of oatmeal". Patient reported she does not eat alot for breakfast and does not drink any type of ONS at facility. Patient provided RD with lunch order (macaroni & cheese, fresh fruit and 2% milk). Patient receiving room service assist to ensure patient receiving 3 meals per day. Review of paper chart, patient ordered regular (small portions) at facility without ONS. Estimated Daily Nutrient Needs: Energy Requirements Based On: Kcal/kg Weight Used for Energy Requirements: [place] Weight for Energy Calculation (kg): 52 kg Total Energy Requirements (kcals/day): 6021-0932 (25-30) Weight Used for Protein Requirements: [place] Weight in Kg Used for Protein Requirements: 52 kg Estimated Total Protein (g/day): 52-62 (1.0-1.2) Estimated Daily Total Fluid (ml/day): per MD Nutrition Related Findings: Lives with: Other (Comment) ([facility]), Orientation Level: Oriented X4, Cognition: Follows commands, Best Verbal Response: Oriented, Patient Behaviors/Mood: Calm, Cooperative Teeth: Missing teeth Swallow: Able to swallow solids and liquids without difficulty Feeding: Dependent Room Service Room Service: Assist Melo Scale Score: 18 Wound Type: None Net IO Since Admission: -80 mL [12/06/24 1137] Gastrointestinal (WDL): Within Defined Limits Last BM Date: 12/03/24 Edema: RLE Edema: Non-pitting, LLE Edema: Non-pitting Oxygen Therapy: Supplemental oxygen, O2 Delivery Method: Nasal cannula, O2 Flow Rate (L/min): 2.5 L/min Labs and meds reviewed: BMP: Recent Labs 12/04/24 0537 12/05/24 0444 12/06/24 0454 NA 140 141 141 K 3.8 3.8 3.7 CL 113* 110* 110* CO2 21* 22* 24 BUN 21 13 12 CREATININE 0.73 0.68 0.64 GLUCOSE 97 86 87 CALCIUM 7.8* 8.2* 8.8 HEPATIC: Recent Labs 12/03/24 1940 AST 31 ALT 14 BILITOT 0.5 ALKPHOS 90 Scheduled: cefTRIAXone, 1,000 mg, IntraVENous, q24h cholecalciferol, 2,000 Units, Oral, Daily docusate sodium, 100 mg, Oral, Daily escitalopram, 20 mg, Oral, Daily ethosuximide, 250 mg, Oral, BID furosemide, 20 mg, Oral, Once per day on Sunday lacosamide, 100 mg, Oral, q AM lacosamide, 150 mg, Oral, Nightly levothyroxine, 50 mcg, Oral, qAM AC melatonin, 3 mg, Oral, Nightly pantoprazole, 40 mg, Oral, Daily potassium chloride, 10 mEq, Oral, Daily valproic acid, 500 mg, Oral, BID Current Nutrition Therapies: Adult diet Regular Current Oral Intake Average Meal Intake: 76-100% (x2 meals on 12/05 and x1 meal on 12/04) Average Supplements Intake: None Ordered Anthropometric Measures: Height: 160 cm (5' 3") Admission Body Weight: 81.2 kg (179 lb) (estimated) Usual Body Weight: 81.6 kg (180 lb) (09/24/24 per review of OP notes) [place] Body Weight (lbs) (Calculated): 115 lbs [place] Body Weight (Kg) (Calculated): 52 kg Wt Readings from Last 8 Encounters: 12/03/24 81.6 kg (179 lb 14.3 oz) Nutrition Diagnosis: Inadequate oral intake related to cognitive or neurological impairment as evidenced by intake 0-25% Nutrition Interventions: Nutrition Education/Counseling: No recommendation at this time Coordination of Nutrition Care: Continue to monitor while inpatient Goals: Goals: PO intake 50% or greater, by next RD assessment Nutrition Monitoring and Evaluation: Behavioral-Environmental Outcomes: None Identified Food/Nutrient Intake Outcomes: Food and Nutrient Intake, Supplement Intake Physical Signs/Symptoms Outcomes: Biochemical Data, GI Status, Skin, Weight, Fluid Status or Edema Discharge Planning: Too soon to determine Jacki Franco, MS RD LD Contact: iSpye or *[phone] Nutrition rescreen completed. Patient referred to the Dietitian due to wound consult for pressure injury. [facility] Hospitalist Progress Note 12/05/2024 Subjective: Admit Date: 12/03/2024 PCP: Orville Mendoza, DO Room#: [id number]/[id number] A BRIEF HOSPITAL COURSE: Katheryn is a 79 y.o. Presenting from [facility] for breakthrough seizure, Was found to meet simple sepsis criteria with UTI as likely source lowering threshold. Additionally patient was in the process of switching seizure prophlaxis medications with their neurologist. Dilantin/vimpat patient unsure in which direction. Reportedly 30 min seizure event at her facility, was not postictal when later arrived to ED and neurologically intact. UA was consistent with UTI. Febrile, tachycardic. Receiving IV abx. Neurology consulted. Resumed home AED. Interval History: Seen at bedside. Appears at her baseline. All questions answered. Adult diet Regular 24HR INTAKE/OUTPUT: Intake/Output Summary (Last 24 hours) at 12/05/2024 0813 Last data filed at 12/04/2024 1821 Gross per 24 hour Intake 360 ml Output 300 ml Net 60 ml Past Medical History: Past Medical History: Diagnosis Date Allergic rhinitis Dependent edema 01/27/2020 Essential hypertension 01/27/2020 Hypothyroidism 01/27/2020 Mental deficiency 01/27/2020 Peptic ulcer disease 01/27/2020 Seizure disorder ([facility]) 01/27/2020 LABS: CBC: Recent Labs 12/03/24 1940 12/04/24 0537 12/05/24 0444 WBC 10.9* 7.5 6.2 RBC 4.12 3.56* 3.37* HGB 11.6* 10.3* 9.6* HCT 36.9 31.7* 30.4* MCV 89.6 89.0 90.2 RDW 13.2 13.4 13.3 PLT 202 150 148 BMP: Recent Labs 12/03/24193912/04/24 0537 12/05/24 0444 NA 141 140 141 K 4.1 3.8 3.8 CL 109* 113* 110* CO2 22* 21* 22* BUN 23 21 13 CREATININE 0.82 0.73 0.68 GLUCOSE 112 97 86 CALCIUM 8.5* 7.8* 8.2* ANIONGAP 10 6 9 LIVER PROFILE: Recent Labs 12/03/241939 AST 31 ALT 14 BILITOT 0.5 ALKPHOS 90 PROT 7.1 PT/INR: No results for input(s): "PROTIME", "INR" in the last 72 hours. CARDIAC ENZYMES: No results for input(s): "TROPONINI" in the last 72 hours. Procalcitonin: No results found for: "PROCAL" COVID-19 PCR: No results for input(s): "COVID19" in the last 72 hours. Objective: Vitals: BP 123/69 (BP Location: Right arm, Patient Position: Lying) Pulse 71 Temp 36.8 C (98.2 F) (Temporal) Resp 20 Ht 1.6 m (5' 3") Wt 81.6 kg (179 lb 14.3 oz) SpO2 92% BMI 31.87 kg/m Pulse Ox: SpO2 Av % Min: 92 % Max: 97 % Supplemental O2: O2 Flow Rate (L/min): 2 L/min Physical Exam HENT: Head: Normocephalic. Nose: Nose normal. Mouth/Throat: Mouth: Mucous membranes are moist. Eyes: Extraocular Movements: Extraocular movements intact. Conjunctiva/sclera: Conjunctivae normal. Cardiovascular: Rate and Rhythm: Normal rate and regular rhythm. Pulmonary: Effort: Pulmonary effort is normal. Breath sounds: Normal breath sounds. Abdominal: Palpations: Abdomen is soft. Musculoskeletal: General: Normal range of motion. Cervical back: Normal range of motion. Skin: General: Skin is warm. Neurological: General: No focal deficit present. Mental Status: She is alert and oriented to person, place, and time. Psychiatric: Mood and Affect: Mood normal. Behavior: Behavior normal. Medications: Scheduled PRN cefTRIAXone, 1,000 mg, IntraVENous, q24h cholecalciferol, 2,000 Units, Oral, Daily docusate sodium, 100 mg, Oral, Daily escitalopram, 20 mg, Oral, Daily ethosuximide, 250 mg, Oral, BID furosemide, 20 mg, Oral, Once per day on Sunday lacosamide, 100 mg, Oral, q AM lacosamide, 150 mg, Oral, Nightly levothyroxine, 50 mcg, Oral, qAM AC melatonin, 3 mg, Oral, Nightly pantoprazole, 40 mg, Oral, Daily potassium chloride, 10 mEq, Oral, Daily valproic acid, 500 mg, Oral, BID PRN medications: acetaminophen OR acetaminophen, albuterol, bisacodyl, ondansetron ODT OR ondansetron, polyethylene glycol (PEG) 3350 Continuous Assessment Data: (CAT1) Reviewed 3 or more notes from different specialty or health system (each=1). (LOW: 2x CAT1 or independent historian MOD: 3x CAT1 or 1x CAT3 EXTENSIVE: 3x CAT1 and 1x CAT3) Acute, acute on chronic, unstable/uncontrolled chronic problems/diagnoses: Breakthrough seizure Abdominal pain w/ nausea, cough, malaise Simple sepsis 2/2 UTI as suspected source Stable chronic problems affecting care, new non-acute diagnoses: MDD recurrent Hypothyroid Mental deficiency with verbal impediment Seizure disorder on prophylactic therapy (in process of changing regimen) Dependent edema Peptic ulcer disease Plan As a result of the above findings & factors, the following mgmt was pursued: - continue CTX - follow UC - neurology has resumed AED- Ethosuximide 250mg BID, VPA 500mg BID , LCM 100mg qAM and 150mg qPM - am labs, replace lytes prn - PT/OT/CM/SW - delirium precautions: increase activity - DVT prophylaxis: enoxaparin and encourage ambulation Complexity: Acute illness or injury posing a threat to life or body function (HIGH). Risk: Admission to hospital-level care was considered or occurred (HIGH). Advance Directive: Full Code Anticipated Discharge - Date - 1-2 days - Location - facility - Pending the following - UC Total time spent (which include face to face and non face to face encounters) : 40 minutes Extended Emergency Contact Information Primary Emergency Contact: ClaritaDanny sampson Mobile Relation: Brother Septic Tank Installer needed? No Denise Hair DO Division of Hospitalist Medicine [facility] General Neurology Follow-up Date of Service: 12/05/2024 Chief complaint: Seizure Interval events: - Had CTH wo contrast yesterday which was negative for intracranial pathology. It did show similar cerebellar atrophy compared to prior imaging. - This AM, patient continues to deny any acute complaints. She notes that the wheezing she had yesterday has resolved. Denies any N/V or issues with appetite. The patient is able to clearly communicate why she is hospitalized. Objective: Exam: BP 119/57 Pulse 77 Temp 36.5 C (97.7 F) (Temporal) Resp 18 Ht 1.6 m (5' 3") Wt 81.6 kg (179 lb 14.3 oz) SpO2 93% BMI 31.87 kg/m Constitutional: Well-nourished. Resting in bed in no distress. Head: Size/Trauma: normocephalic Neck: supple Heart: RRR, S1S2 Resp: CTAB GI: soft, non-distended Neuro: General: awake and alert Cranial nerves: I: smell Not tested II: visual hunt Full to confrontation II: pupils Equal, round, reactive to light III,VII: ptosis None III,IV,: extraocular muscles Full ROM V: mastication Normal V: facial light touch sensation Normal V,VII: corneal reflex Present VII: facial muscle function - upper Normal VII: facial muscle function - lower Normal VIII: hearing Normal IX: soft palate elevation Normal IX,X: gag reflex Not assessed XI: trapezius strength 4/5 XI: sternocleidomastoid strength Not assessed XI: neck flexion strength Not assessed XII: tongue strength Normal Motor exam: no involuntary movements or tremors noted Strength decreased symmetrically in UE (4/5) and LE (3/5) Tone: Normal Sensation was normal to light touch Cerebellar exam noted no tremors noted Gait: deferred (patient chronically wheelchair bound) Data: CTH wo contrast 12/04/24: Acute Findings: No hemorrhage, mass, or infarct. Chronic Changes: Scattered patchy foci of white matter hypoattenuation, most likely mild chronic microvascular ischemic changes. Ventricles and sulci: Similar to the prior study, there is disproportionate cerebellar atrophy which could relate to chronic antiepileptic medication use or other causes. No hydrocephalus. Other: The skull, included paranasal sinuses and orbits are normal. Neuroimaging and labs personally reviewed Assessment/Plan: Summary: Patient is a 79 year old female with pertinent medical history of idiopathic epilepsy (since childhood) and cerebellar atrophy who presented to [facility] on 12/03 following witnessed seizure at facility. She met criteria for simple sepsis on admission. Neurology consulted for seizure management. Breakthrough seizure (witnessed 12/03) possibly 2/2 acute illness vs recent changes to AED regimen Idiopathic epilepsy (confirmed on EEG 2017) with treatment resistance vs medication non-adherence Mental disability, appears at baseline - Continue the following AED regimen: - Ethosuximide 250mg BID - VPA 500mg BID - LCM 100mg qAM and 150mg qPM - Follow-up LCM level and free valproic acid level (remain in-process) - Maintain seizure precautions - Already established with neurology through [facility], so can follow-up with them as outpatient - Infectious work-up and treatment per primary team - Neurology service to sign off. Please reach back out with any questions or concerns. Cosigned by Susan Reyes MD at 12/05/2024 3:03 PM EST Associated attestation - Susan Reyes MD - 12/05/2024 3:03 PM EST I have seen, examined and evaluated the patient with the resident physician or nurse practitioner under my direct supervision. I have reviewed the resident physician's or nurse practitioner's note and agree with the assessment and plan of care as documented with this addendum. No acute overnight events. Resting comfortably. Afebrile overnight. Exam otherwise unchanged. Data: CT Head w/o contrast 12/04/24 No acute intracranial abnormalities or significant change from the prior study. Routine EEG 08/17/24 This EEG supports the diagnosis of a moderate diffuse encephalopathy. No epileptiform discharges or EEG seizures were seen during this recording. Routine EEG 08/15/18 This EEG supports the diagnosis of generalized epilepsy. There were infrequent spike wave discharges generalized during sleep. No EEG seizures were detected. Assessment and Plan: 79 yo female with past medical history of idiopathic generalized epilepsy, cerebellar atrophy, cognitive impairment, chronic dysarthria, hypothyroidism presents from SNF with breakthrough seizure in the setting of n/v and recent changes to ADM regimen. 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 -At this time, will continue VPA at 500mg BID, optimize LAC to 100mg in AM and 150mg in PM, and continue ETX at 250mg BID -Free VPA and LAC levels pending -Encourage outpatient [facility] neurology follow up upon discharge -Maintain seizure precautions Febrile -Afebrile past 24 hours -Urine culture with E Coli-tx per primary -At this time, patient denies LUCIO, photophobia, or meningismus No further neurology workup required at this time. Will sign off, please call if questions. Patient seen and examined at bedside. Refer to Dr. Garza H&P for further details. See new orders. Receiving abx for likely UTI. From facility. Neurology consulted for breakthrough seizure. Denise Hair D.O. Division of Hospitalist Medicine [facility] Images from the original note were not included. OCCUPATIONAL THERAPY [facility] Initial Evaluation Name/MRN: Katheryn Chino ([id number]) Evaluation Date: 12/04/2024 Date of : 1945 Admission Date: 12/03/2024 6:35 PM Age: 79 y.o. Room/Bed: N3-351/N3-351 A Discharge Recommendation: Home with Home health OT (ECF with OT) Equipment Needed: No Assessment IMPRESSION: ADL function is not far from baseline. Pt participatory and easily redirected when slightly impulsive. Able to complete ADL activity today with assist x 1. Will need BSC as pt is mostly wheelchair level at baseline. Recommend home health OT upon returning to her facility. Admitting Diagnosis: Breakthrough seizure, UTI. H/o developmental delay. Performance Deficits /Impairments: Decreased Functional Mobility, Decreased ADL status, Decreased Strength, Decreased Safety Awareness, Decreased Endurance, Decreased Balance, Decreased High Level IADLs, Decreased Cognition, Decreased Fine Motor Control, and Decreased Posture Prognosis: Good Decision Making: Medium Complexity Subjective Pt is pleasant and agreeable to OT. Goes by "Pat". Wound care in room and session coordinated with posterior skin check. Pt denies pain. Past Medical History: Past Medical History: Diagnosis Date Allergic rhinitis Dependent edema 01/27/2020 Essential hypertension 01/27/2020 Hypothyroidism 01/27/2020 Mental deficiency 01/27/2020 Peptic ulcer disease 01/27/2020 Seizure disorder ([facility]) 01/27/2020 Past Surgical History: No past surgical history on file. Admission Diagnosis: Patient Active Problem List Diagnosis Date Noted Sepsis due to urinary tract infection ([facility]) 12/03/2024 Obesity, Class I, BMI 30-34.9 08/18/2024 Breakthrough seizure ([facility]) ([facility]) 08/17/2024 Dysarthria 08/07/2018 Ataxia 08/07/2018 Depression 10/26/2020 Cerebellar degeneration ([facility]) ([facility]) 10/26/2020 Other specified hypothyroidism 01/27/2020 Seizure disorder ([facility]) ([facility]) 01/27/2020 Peptic ulcer disease 01/27/2020 Dependent edema 01/27/2020 Mental deficiency 01/27/2020 Essential hypertension 01/27/2020 Hypothyroidism 01/27/2020 Allergic rhinitis 01/27/2020 Medical Precautions: No active isolations Proper PPE donned/doffed in accordance with facility standards. Fall Risk: Elaine Fall Risk Score: 35 (Medium Risk) Elaine Fall Risk Score: 35 (High Risk) Precautions/Restrictions: Fall Precautions (+) alarms; seizure precautions Family/Caregiver Present: none Overall Cognitive Status: H/o developmental delay Arousal: WFL Attention: Min cues Command Followin-step WFL Initiation: WFL Sequencing: Grossly WFL for ADL tasks Behaviors/Mood: Subtle impulsiveness, cooperative and easily redirected. Overall Orientation Status: Pt is at least AxOx self and hospital Social/Functional History From [facility] and has been there for 11.5 years. She typically uses w/c for mobility, which she can self-propel. She notes she does go to therapy and they do work on gait in parallel bars (and working on standing up straighter). Able to dress self normally, has assist for other ADLs. Prior Level of Function Prior Level of ADL Function: Required Assist Prior Level of Mobility: Required Assist (Working on ambulation with PT); Device: // bars with therapy only. Otherwise pt uses wheelchair Prior Level of Transfers: Required Assist Objective ADLs LE Dressing: Mod Assist, socks, difficulty reaching distally and assist to maintain figure-4 pose Toileting: Max Assist, posterior hygiene, samantha pads soiled with urine. Grooming: SBA, Oral care seated in recliner. Pt spilling over water cup. UE Dressing: SBA, gown changed simulating UE dressing Feeding: Breakfast meal 70% consumed. Pt reports she is full. States no assist required for feeding this date. *Mod SOB/wheezing sounds with minimal activity. Cues for proper breathing techniques throughout due to heavy mouth breathing. Upper Extremity Assessment AROM: WFL Strength: WFL Bed Mobility Pt up in chair upon arrival Transfers/Mobility Sit to stand: Mod Assist, x 2 trials with second stand improving to min assist Stand to sit: Min Assist Standing balance: Mod Assist, static balance at walker during hygiene and wound care skin check with pt improving to min assist with cues for forward weight shifting. Device(s) used: Front wheeled walker AM-PAC AM-PAC Inpatient Daily Activity Raw Score: 18 ADL Inpatient CMS G-Code Modifier: CK Plan Pt would benefit from skilled acute OT services to address Strengthening, ROM, Gait Training, Balance Training, Self-Care/ADL Training, Functional Mobility Training, Endurance Training, Safety Education and Training, Pain Management, Equipment Evaluation/Education, Cognitive Reorientation, Patient/Caregiver Training, Cognitive/Perceptual Training, and Positioning. Frequency: 2x/week for 4 weeks Barriers: Long standing deficits Safety/Education Safety Safety Devices in place: call light within reach, left in chair, chair alarm in place, gait belt, and patient at risk for falls Restraints: N/A Education Education Given To: patient Education Provided: OT Role and Plan of Care Education Method: Verbal Barriers to Learning: Cognition Education Outcome: Continued Education Needed Goals Patient Stated Goal: Return to facility and work with therapy Encounter Problems Encounter Problems (Active) Balance Static standing balance x 1 minute SBA in prep for toileting. Start: 12/04/24 Expected End: 01/01/25 Dressings Lower Extremities Patient will dress lower body min assist. Start: 12/04/24 Expected End: 01/01/25 Toileting Patient will complete toileting tasks with min assist. Start: 12/04/24 Expected End: 01/01/25 Toilet transfer min assist. Start: 12/04/24 Expected End: 01/01/25 Therapy Time Individual Co-Treatment Co-Evaluation Time In 0943 Time Out 1007 Minutes 24 Timed Code Treatment Minutes: 11 Minutes (1- self) Patient's Occupational Therapy Plan of Care supervision is transferred to a [facility] Services Occupational Therapist. Goals and/or treatment plan was established in collaboration with patient/family/other representatives. Mary Morataya OTR/L Images from the original note were not included. PHYSICAL THERAPY [facility] Initial Evaluation Name/MRN: Katheryn Chino ([id number]) Evaluation Date: 12/04/2024 Date of : 1945 Admission Date: 12/03/2024 6:35 PM Age: 79 y.o. Room/Bed: N3-351/N3-351 A Discharge Recommendation: (return to facility (has been there 11 years)) Equipment Needed: No Assessment IMPRESSION: Pt notes she primarily uses w/c for mobility at facility, but helps with transfers and can self-propel. Has been working with PT for gait in parallel bars. Denies pain, but noted significant expiratory wheezing (currently on O2-normally not). Bed mobility min of 1 and mod of 1 to transfer to [facility]. Plan is to return to [facility]. Admitting Diagnosis: Sepsis due to UTI, Seizure (just had change in her medication) Prognosis: fair Performance Deficits /Impairments: Decreased Functional Mobility, Decreased Strength, and Decreased Endurance Decision Making: Medium Complexity Subjective Goes by Pat She states she feels generally fine (other than she is "wet"). Denies pain. Alert and oriented. Notes she does not normally wear O2 (has on 2L currently). Denies any stress with breathing. Pain: Pt denies any current pain. Past Medical History: Past Medical History: Diagnosis Date Allergic rhinitis Dependent edema 01/27/2020 Essential hypertension 01/27/2020 Hypothyroidism 01/27/2020 Mental deficiency 01/27/2020 Peptic ulcer disease 01/27/2020 Seizure disorder ([facility]) 01/27/2020 Past Surgical History: No past surgical history on file. Admission Diagnosis: Patient Active Problem List Diagnosis Date Noted Sepsis due to urinary tract infection ([facility]) 12/03/2024 Obesity, Class I, BMI 30-34.9 08/18/2024 Breakthrough seizure ([facility]) ([facility]) 08/17/2024 Dysarthria 08/07/2018 Ataxia 08/07/2018 Depression 10/26/2020 Cerebellar degeneration ([facility]) ([facility]) 10/26/2020 Other specified hypothyroidism 01/27/2020 Seizure disorder ([facility]) ([facility]) 01/27/2020 Peptic ulcer disease 01/27/2020 Dependent edema 01/27/2020 Mental deficiency 01/27/2020 Essential hypertension 01/27/2020 Hypothyroidism 01/27/2020 Allergic rhinitis 01/27/2020 Medical Precautions: No active isolations Proper PPE donned/doffed in accordance with facility standards. Fall Risk: Elaine Fall Risk Score: 35 (Medium Risk) Elaine Fall Risk Score: 35 (High Risk) Precautions/Restrictions: Seizure Precautions Other Position/Activity Restriction: 2L O2, [place] Family/Caregiver Present: none Overall Cognitive Status: h/o delay, but speech intelligible and relevant; able to offer functional history indep Overall Orientation Status: Oriented x4 Vision: no overt issues noted Hearing: normal Social/Functional History From [facility] and has been there for 11.5 years. She typically uses w/c for mobility, which she can self-propel. She notes she does go to therapy and they do work on gait in parallel bars (and working on standing up straighter). Able to dress self normally, has assist for other ADLs. Prior Level of Function Prior Level of ADL Function: Required Assist (states could dress self) Prior Level of Mobility: Required Assist (only with PT); Device: Wheelchair - manual Prior Level of Transfers: Required Assist Objective Lower Extremity Assessment AROM: DF 5 deg carmela, SAQ from approx 30 deg to -5, Hip ABD 10 deg carmela in supine. UE screen-pt able to grasp with either hand, no difficulty shldr flex to 90. Strength: hip extn isometrics fair, Hip ABD fair-, knee extn 3+/5 carmela, DF 4-/5 carmela (no significantly R vs. L weakness) Sensation: Pt denies numbness and tingling Balance: sitting fair+ (one mild LOB posteriorly, one mild LOB to pt's L)-but self corrected. Standing balance poor+ (11/24 Modified [place]) Bed Mobility: Supine to sit: Min Assist Scooting: Mod Assist Transfers Sit to stand: Mod Assist Bed to chair: Mod Assist Ambulation Several small steps during pivot to chair, mod of 1. Outcome Measures AM-PAC How much HELP from another person do you currently need Turning from your back to your side while in a flat bed without using bedrails?: A Little Moving from lying on your back to sitting on the side of a flat bed without using bedrails?: A Little Moving to and from a bed to a chair (including a wheelchair)?: A Lot Standing up from a chair using your arms (wheelchair or bedside chair)?: A Lot Walking in a hospital room?: Total Stair climbing assessed?: No AM-PAC Inpatient Mobility Raw Score (No Stairs) : 11 JH-HLM JH-HLM Score: Transferred to chair/commode Plan Pt would benefit from skilled acute PT services to address Strengthening, ROM, Balance Training, Functional Mobility Training, Endurance Training, Home Management Training, Patient/Caregiver Training, and (gait only if pt willing) . Frequency: 3x/week for 2 weeks Barriers: Impaired balance, Lower extremity weakness, Decreased endurance, Long standing deficits, and Medical complications Safety/Education Safety Safety Devices in place: call light within reach, left in chair, and chair alarm in place Restraints: No Education Only supervised mobility, but increase OOB time Goals Patient Stated Goal: get back to home. Encounter Problems Encounter Problems (Active) Balance Patient will maintain static sitting balance for 60 seconds with CGA in order to demonstrate improved postural control and prepare for out of bed mobility. Start: 12/04/24 Expected End: 12/18/24 W/ or w/o device Mobility Patient will ambulate 10 feet with mod assist and any safe method (device vs. arm in arm) in order to improve safety and independence with mobility. Start: 12/04/24 Expected End: 12/18/24 Was using parallel bars at facility Transfers Patient will perform bed mobility with supervision in order to improve independence and prepare for out of bed mobility. Start: 12/04/24 Expected End: 12/18/24 Patient will complete sit to stand transfer with min assist to device in order to improve safety and prepare for out of bed mobility. Start: 12/04/24 Expected End: 12/18/24 Therapy Time Individual Co-Treatment Co-Evaluation Time In 0900 Time Out 0924 Minutes 24 Misha Slaughter PT Patient's Physical Therapy Plan of Care supervision is transferred to a [facility] Services Physical Therapist. Goals and/or treatment plan was established in collaboration with patient/family/other representatives. documented in this encounter [facility] 12-07-2024 Plan of care note Problem: Knowledge Deficit Goal: Patient/family/caregiver demonstrates understanding of disease process, treatment plan, medications, and discharge instructions Outcome: Progressing Problem: Potential for Compromised Skin Integrity Goal: Skin Integrity is Maintained or Improved Outcome: Progressing Goal: Nutritional status is improving Outcome: Progressing Problem: Urinary Incontinence Goal: Perineal skin integrity is maintained or improved Outcome: Progressing Problem: Problem Interventions Goal: Assess Nutritional Intake Outcome: Progressing [facility] 12-06-2024 Note Hospitalist Progress Note 12/06/2024 Subjective: Admit Date: 12/03/2024 PCP: Orville Mendoza, Room#: N3-779/N3-247 A BRIEF HOSPITAL COURSE: Katheryn is a 79 y.o. Presenting from [facility] for breakthrough seizure, Was found to meet simple sepsis criteria with UTI as likely source lowering threshold. Additionally patient was in the process of switching seizure prophlaxis medications with their neurologist. Dilantin/vimpat patient unsure in which direction. Reportedly 30 min seizure event at her facility, was not postictal when later arrived to ED and neurologically intact. UC grew e. Coli. Receiving IV abx. Neurology consulted. Resumed home AED. Interval History: Seen at bedside. Appears at her baseline. All questions answered. Adult diet Regular 24HR INTAKE/OUTPUT: Intake/Output Summary (Last 24 hours) at 12/06/2024 1143 Last data filed at 12/06/2024 0955 Gross per 24 hour Intake 400 ml Output 600 ml Net -200 ml Past Medical History: Past Medical History: Diagnosis Date Allergic rhinitis Dependent edema 01/27/2020 Essential hypertension 01/27/2020 Hypothyroidism 01/27/2020 Mental deficiency 01/27/2020 Peptic ulcer disease 01/27/2020 Seizure disorder (CMS/HCC) 01/27/2020 LABS: CBC: Recent Labs 12/04/24 0537 12/05/24 0444 12/06/24 0454 WBC 7.5 6.2 5.3 RBC 3.56* 3.37* 3.66* HGB 10.3* 9.6* 10.5* HCT 31.7* 30.4* 33.0* MCV 89.0 90.2 90.2 RDW 13.4 13.3 13.0 PLT 150 148 158 BMP: Recent Labs 12/04/24 0537 12/05/24 0444 12/06/24 0454 NA 140 141 141 K 3.8 3.8 3.7 CL 113* 110* 110* CO2 21* 22* 24 BUN 21 13 12 CREATININE 0.73 0.68 0.64 GLUCOSE 97 86 87 CALCIUM 7.8* 8.2* 8.8 ANIONGAP 6 9 7 LIVER PROFILE: Recent Labs 12/03/241939 AST 31 ALT 14 BILITOT 0.5 ALKPHOS 90 PROT 7.1 PT/INR: No results for input(s): "PROTIME", "INR" in the last 72 hours. CARDIAC ENZYMES: No results for input(s): "TROPONINI" in the last 72 hours. Procalcitonin: No results found for: "PROCAL" COVID-19 PCR: No results for input(s): "COVID19" in the last 72 hours. Objective: Vitals: BP 131/69 (BP Location: Right arm, Patient Position: Sitting) Pulse 66 Temp 36.7 ?C (98.1 ?F) (Temporal) Resp 18 Ht 1.6 m (5' 3") Wt 81.6 kg (179 lb 14.3 oz) SpO2 97% BMI 31.87 kg/m? Pulse Ox: SpO2 Av % Min: 97 % Max: 97 % Supplemental O2: O2 Flow Rate (L/min): 2.5 L/min Physical Exam HENT: Head: Normocephalic. Nose: Nose normal. Mouth/Throat: Mouth: Mucous membranes are moist. Eyes: Extraocular Movements: Extraocular movements intact. Conjunctiva/sclera: Conjunctivae normal. Cardiovascular: Rate and Rhythm: Normal rate and regular rhythm. Pulmonary: Effort: Pulmonary effort is normal. Breath sounds: Normal breath sounds. Abdominal: Palpations: Abdomen is soft. Musculoskeletal: General: Normal range of motion. Cervical back: Normal range of motion. Skin: General: Skin is warm. Neurological: General: No focal deficit present. Mental Status: She is alert and oriented to person, place, and time. Psychiatric: Mood and Affect: Mood normal. Behavior: Behavior normal. Medications: Scheduled PRN cefTRIAXone, 1,000 mg, IntraVENous, q24h cholecalciferol, 2,000 Units, Oral, Daily docusate sodium, 100 mg, Oral, Daily escitalopram, 20 mg, Oral, Daily ethosuximide, 250 mg, Oral, BID furosemide, 20 mg, Oral, Once per day on Sunday lacosamide, 100 mg, Oral, q AM lacosamide, 150 mg, Oral, Nightly levothyroxine, 50 mcg, Oral, qAM AC melatonin, 3 mg, Oral, Nightly pantoprazole, 40 mg, Oral, Daily potassium chloride, 10 mEq, Oral, Daily valproic acid, 500 mg, Oral, BID PRN medications: acetaminophen OR acetaminophen, albuterol, bisacodyl, ondansetron ODT OR ondansetron, polyethylene glycol (PEG) 3350 Continuous Assessment Data: (CAT1) Reviewed 3 or more notes from different specialty or health system (each=1). (LOW: 2x CAT1 or independent historian MOD: 3x CAT1 or 1x CAT3 EXTENSIVE: 3x CAT1 and 1x CAT3) Acute, acute on chronic, unstable/uncontrolled chronic problems/diagnoses: Breakthrough seizure Abdominal pain w/ nausea, cough, malaise Simple sepsis 2/2 UTI E. Coli UTI Stable chronic problems affecting care, new non-acute diagnoses: MDD recurrent Hypothyroid Mental deficiency with verbal impediment Seizure disorder on prophylactic therapy (in process of changing regimen) Dependent edema Peptic ulcer disease Plan As a result of the above findings & factors, the following mgmt was pursued: - complete 4 days of IV abx for UTI - neurology has resumed AED- Ethosuximide 250mg BID, VPA 500mg BID , LCM 100mg qAM and 150mg qPM - medically ready for discharge - am labs, replace lytes prn - PT/OT/CM/SW - delirium precautions: increase activity - DVT prophylaxis: enoxaparin and encourage ambulation Complexity: Acute illness or injury posing a threat (more content not included)... [facility] 12-06-2024 Note Nutrition Assessment Type and Reason for Visit: Initial (DT referral (for wound care consult)) Nutrition Recommendations/Plan: Continue with regular diet as tolerated Encouraged small frequent meals to promote po intake Monitor patients willingness to trial ONS Suggest document po intake in nursing flow sheets RD conitnue to monitor overall nutritional status and follow up weekly Malnutrition Assessment: Malnutrition Status: At risk for malnutrition (Comment) Context: Chronic Illness Findings of the 6 clinical characteristics of malnutrition: Energy Intake: 75% or less estimated energy requirements for 1 month or longer Weight Loss: No significant weight loss Body Fat Loss: No significant body fat loss (appropriate for age) Muscle Mass Loss: No significant muscle mass loss (appropriate for age) Fluid Accumulation: Mild Extremities Grounds Restoration Specialist Strength: Not Performed Nutrition Assessment: 79 y.o. female presented from [facility] for breakthrough seizure, Was found to meet simple sepsis criteria with UTI as likely source lowering threshold. Additionally patient was in the process of switching seizure prophlaxis medications with their neurologist. Dilantin/vimpat patient unsure in which direction. Reportedly 30 min seizure event at her facility, was not postictal when later arrived to ED and neurologically intact. UA was consistent with UTI. Febrile, tachycardic. Patient admitted for further evaluation and management. Neurology consulted and continue to follow. Patient currently ordered regular diet however has had poor po intake last 3 meals. Patient sitting up in bed watching TV during RD visit. Patient reports he had oatmeal and mccann for breakfast this morning and stated "it was alot of oatmeal". Patient reported she does not eat alot for breakfast and does not drink any type of ONS at facility. Patient provided RD with lunch order (macaroni & cheese, fresh fruit and 2% milk). Patient receiving room service assist to ensure patient receiving 3 meals per day. Review of paper chart, patient ordered regular (small portions) at facility without ONS. Estimated Daily Nutrient Needs: Energy Requirements Based On: Kcal/kg Weight Used for Energy Requirements: [place] Weight for Energy Calculation (kg): 52 kg Total Energy Requirements (kcals/day): 2105-6389 (25-30) Weight Used for Protein Requirements: [place] Weight in Kg Used for Protein Requirements: 52 kg Estimated Total Protein (g/day): 52-62 (1.0-1.2) Estimated Daily Total Fluid (ml/day): per MD Nutrition Related Findings: Lives with: Other (Comment) ([facility]), Orientation Level: Oriented X4, Cognition: Follows commands, Best Verbal Response: Oriented, Patient Behaviors/Mood: Calm, Cooperative Teeth: Missing teeth Swallow: Able to swallow solids and liquids without difficulty Feeding: Dependent Room Service Room Service: Assist Melo Scale Score: 18 Wound Type: None Net IO Since Admission: -80 mL [12/06/24 1137] Gastrointestinal (WDL): Within Defined Limits Last BM Date: 12/03/24 Edema: RLE Edema: Non-pitting, LLE Edema: Non-pitting Oxygen Therapy: Supplemental oxygen, O2 Delivery Method: Nasal cannula, O2 Flow Rate (L/min): 2.5 L/min Labs and meds reviewed: BMP: Recent Labs 12/04/24 0537 12/05/24 0444 12/06/24 0454 NA 140 141 141 K 3.8 3.8 3.7 CL 113* 110* 110* CO2 21* 22* 24 BUN 21 13 12 CREATININE 0.73 0.68 0.64 GLUCOSE 97 86 87 CALCIUM 7.8* 8.2* 8.8 HEPATIC: Recent Labs 12/03/24 1940 AST 31 ALT 14 BILITOT 0.5 ALKPHOS 90 Scheduled: cefTRIAXone, 1,000 mg, IntraVENous, q24h cholecalciferol, 2,000 Units, Oral, Daily docusate sodium, 100 mg, Oral, Daily escitalopram, 20 mg, Oral, Daily ethosuximide, 250 mg, Oral, BID furosemide, 20 mg, Oral, Once per day on Sunday lacosamide, 100 mg, Oral, q AM lacosamide, 150 mg, Oral, Nightly levothyroxine, 50 mcg, Oral, qAM AC melatonin, 3 mg, Oral, Nightly pantoprazole, 40 mg, Oral, Daily potassium chloride, 10 mEq, Oral, Daily valproic acid, 500 mg, Oral, BID Current Nutrition Therapies: Adult diet Regular Current Oral Intake Average Meal Intake: 76-100% (x2 meals on 12/05 and x1 meal on 12/04) Average Supplements Intake: None Ordered Anthropometric Measures: Height: 160 cm (5' 3") Admission Body Weight: 81.2 kg (179 lb) (estimated) Usual Body Weight: 81.6 kg (180 lb) (09/24/24 per review of OP notes) [place] Body Weight (lbs) (Calculated): 115 lbs [place] Body Weight (Kg) (Calculated): 52 kg Wt Readings from Last 8 Encounters: 12/03/24 81.6 kg (179 lb 14.3 oz) Nutrition Diagnosis: Inadequate oral intake related to cognitive or neurological impairment as evidenced by intake 0-25% Nutrition Interventions: Nutrition Education/Counseling: No recommendation at this time Coordination of Nutrition Care: Continue to monitor while inpatient Goals: Goals: PO intake 50% or greater, by n (more content not included)... [facility] 12-06-2024 Plan of care note Problem: Knowledge Deficit Goal: Patient/family/caregiver demonstrates understanding of disease process, treatment plan, medications, and discharge instructions 12/06/2024514 by Maria Victoria Zapata RN Outcome: Progressing 12/06/202417 by Maria Victoria Zapata RN Outcome: Progressing Problem: Potential for Compromised Skin Integrity Goal: Skin Integrity is Maintained or Improved 12/06/2024514 by Maria Victoria Zapata RN Outcome: Progressing 12/06/202417 by Maria Victoria Zapata RN Outcome: Progressing Goal: Nutritional status is improving 12/06/2024514 by Maria Victoria Zapata RN Outcome: Progressing 12/06/202417 by Maria Victoria Zapata RN Outcome: Progressing Problem: Urinary Incontinence Goal: Perineal skin integrity is maintained or improved 12/06/2024514 by Maria Victoria Zapata RN Outcome: Progressing 12/06/2024 0018 by Maria Victoria Zapata RN Outcome: Progressing [facility] 12-06-2024 Plan of care note Problem: Knowledge Deficit Goal: Patient/family/caregiver demonstrates understanding of disease process, treatment plan, medications, and discharge instructions Outcome: Progressing Problem: Potential for Compromised Skin Integrity Goal: Skin Integrity is Maintained or Improved Outcome: Progressing Goal: Nutritional status is improving Outcome: Progressing Problem: Urinary Incontinence Goal: Perineal skin integrity is maintained or improved Outcome: Progressing [facility] 12-05-2024 Note Formatting of this n ote might be different from the original. Pt adm from [facility] SNF/LTC, with Sepsis 2nd to UTI. Plan is to return. Facility will adm pt back skilled under Medicare. Called pt's brother Danny [phone] was called and updated. CM to follow. [facility] 12-05-2024 Note Formatting of this n ote might be different from the original. Pt adm from [facility] SNF/LTC, with Sepsis 2nd to UTI. Plan is to return. Facility will adm pt back skilled under Medicare. Called pt's brother Danny [phone] was called and updated. CM to follow. [facility] 12-05-2024 Telephone encounter Note Updated LCM 150mg BID rx faxed via [employer] to [facility]. Confirmation received. Silvia Rogers RN [facility] 12-05-2024 Miscellaneous Notes Updated LCM 150mg BID rx faxed via [employer] to [facility]. Confirmation received. Silvia Rogers RN The following approved medication requests have been transmitted electronically. Requested Prescriptions Signed Prescriptions Disp Refills lacosamide (VIMPAT) 150 mg tab 180 tablet 1 Sig: Take 1 tablet by mouth two times a day for 180 days. Authorizing Provider: ARTIS HAMILTON APRN.MACHINED PARTS QUALITY INSPECTOR Spoke with nurse Inman at [facility]. Informed her of recommendations to increase LCM to 150mg BID, with read back. Nurse requests rx to be faxed to the facility. [facility] PH: [phone] FAX : [phone] Silvia Rogers RN Called the patient's facility. Left message for the nurse to call back regarding recommendations. Silvia Rogers RN If no clear triggers will likely need to adjust doses. Would consider further increasing LCM to 150 mg BID Artis Hamilton APRN.MACHINED PARTS QUALITY INSPECTOR Seizure Call - spoke with nurse Inman. [facility] PH: [phone] FAX : [phone] Last Visit: 09/24/24 Next Visit: 01/15/25 Date and Time of seizure: 12/03, 10:05am Seizure description: altered awareness, stiffened up. Duration: 33 minutes. Reported the seizure ended at 10:38am Witnessed: by caregiver Aura: Last Seizure: 11/07/24 TB: Unsure but the patients tongue was sticking out of her mouth UI: At her baseline she is incontinent Rescue Medication used: yes, x2 doses of Nayzilam nasal spray. First dose given around 5 minutes after seizure was seen by the nurse. 2nd dose was given 10 minutes after while they were waiting for EMS to arrive. ASM: VPA 250mg TID LCM 100/100 Ethosuximide 250/250 PHT - no longer taking as per plan Triggers: Unsure. No missed ASM doses. Per Dagmar, she did have emesis and diarrhea last night. No other symptoms of illeness. Back to [place]: no Other: patient was taken to local ED, [facility]. The patient will be transferred to another hospital that has neurology team when a bed is available. ==== Per 11/10/24 phone encounter Script for Nayzilam sent. Would consider starting Vimpat with goal of weaning off PHT since she reaches goal dose. If they are in agreement can provide titration. Wk 1: LCM 50 mg at bedtime/ PHT 100 mg BID Wk 2: LCM 50 mg bid Wk 3: LCM 50/100, decrease PHT to 100 mg QHS Wk 4: LCM 100/100, stop PHT Titration plan was faxed to the patient's facility, verbal given to nurse as well. ==== Informed nursing to call our office with an update once the patient is discharged from the hospital. Forwarded to MARIO 2 pool Silvia Rogers RN Received patients seizure monitoring sheet from [facility]. Uploaded to [facility] documented in this encounter [facility] 12-05-2024 Note Hospitalist Progress Note 12/05/2024 Subjective: Admit Date: 12/03/2024 PCP: Orville Mendoza DO Room#: N3-351/N3-351 A BRIEF HOSPITAL COURSE: Katheryn is a 79 y.o. Presenting from [facility] for breakthrough seizure, Was found to meet simple sepsis criteria with UTI as likely source lowering threshold. Additionally patient was in the process of switching seizure prophlaxis medications with their neurologist. Dilantin/vimpat patient unsure in which direction. Reportedly 30 min seizure event at her facility, was not postictal when later arrived to ED and neurologically intact. UA was consistent with UTI. Febrile, tachycardic. Receiving IV abx. Neurology consulted. Resumed home AED. Interval History: Seen at bedside. Appears at her baseline. All questions answered. Adult diet Regular 24HR INTAKE/OUTPUT: Intake/Output Summary (Last 24 hours) at 12/05/2024 0813 Last data filed at 12/04/2024 1821 Gross per 24 hour Intake 360 ml Output 300 ml Net 60 ml Past Medical History: Past Medical History: Diagnosis Date Allergic rhinitis Dependent edema 01/27/2020 Essential hypertension 01/27/2020 Hypothyroidism 01/27/2020 Mental deficiency 01/27/2020 Peptic ulcer disease 01/27/2020 Seizure disorder ([facility]) 01/27/2020 LABS: CBC: Recent Labs 12/03/24193912/04/24 0537 12/05/24 0444 WBC 10.9* 7.5 6.2 RBC 4.12 3.56* 3.37* HGB 11.6* 10.3* 9.6* HCT 36.9 31.7* 30.4* MCV 89.6 89.0 90.2 RDW 13.2 13.4 13.3 PLT 202 150 148 BMP: Recent Labs 12/03/24193912/04/24 0537 12/05/24 0444 NA 141 140 141 K 4.1 3.8 3.8 CL 109* 113* 110* CO2 22* 21* 22* BUN 23 21 13 CREATININE 0.82 0.73 0.68 GLUCOSE 112 97 86 CALCIUM 8.5* 7.8* 8.2* ANIONGAP 10 6 9 LIVER PROFILE: Recent Labs 12/03/241939 AST 31 ALT 14 BILITOT 0.5 ALKPHOS 90 PROT 7.1 PT/INR: No results for input(s): "PROTIME", "INR" in the last 72 hours. CARDIAC ENZYMES: No results for input(s): "TROPONINI" in the last 72 hours. Procalcitonin: No results found for: "PROCAL" COVID-19 PCR: No results for input(s): "COVID19" in the last 72 hours. Objective: Vitals: BP 123/69 (BP Location: Right arm, Patient Position: Lying) Pulse 71 Temp 36.8 ?C (98.2 ?F) (Temporal) Resp 20 Ht 1.6 m (5' 3") Wt 81.6 kg (179 lb 14.3 oz) SpO2 92% BMI 31.87 kg/m? Pulse Ox: SpO2 Av % Min: 92 % Max: 97 % Supplemental O2: O2 Flow Rate (L/min): 2 L/min Physical Exam HENT: Head: Normocephalic. Nose: Nose normal. Mouth/Throat: Mouth: Mucous membranes are moist. Eyes: Extraocular Movements: Extraocular movements intact. Conjunctiva/sclera: Conjunctivae normal. Cardiovascular: Rate and Rhythm: Normal rate and regular rhythm. Pulmonary: Effort: Pulmonary effort is normal. Breath sounds: Normal breath sounds. Abdominal: Palpations: Abdomen is soft. Musculoskeletal: General: Normal range of motion. Cervical back: Normal range of motion. Skin: General: Skin is warm. Neurological: General: No focal deficit present. Mental Status: She is alert and oriented to person, place, and time. Psychiatric: Mood and Affect: Mood normal. Behavior: Behavior normal. Medications: Scheduled PRN cefTRIAXone, 1,000 mg, IntraVENous, q24h cholecalciferol, 2,000 Units, Oral, Daily docusate sodium, 100 mg, Oral, Daily escitalopram, 20 mg, Oral, Daily ethosuximide, 250 mg, Oral, BID furosemide, 20 mg, Oral, Once per day on Sunday lacosamide, 100 mg, Oral, q AM lacosamide, 150 mg, Oral, Nightly levothyroxine, 50 mcg, Oral, qAM AC melatonin, 3 mg, Oral, Nightly pantoprazole, 40 mg, Oral, Daily potassium chloride, 10 mEq, Oral, Daily valproic acid, 500 mg, Oral, BID PRN medications: acetaminophen OR acetaminophen, albuterol, bisacodyl, ondansetron ODT OR ondansetron, polyethylene glycol (PEG) 3350 Continuous Assessment Data: (CAT1) Reviewed 3 or more notes from different specialty or health system (each=1). (LOW: 2x CAT1 or independent historian MOD: 3x CAT1 or 1x CAT3 EXTENSIVE: 3x CAT1 and 1x CAT3) Acute, acute on chronic, unstable/uncontrolled chronic problems/diagnoses: Breakthrough seizure Abdominal pain w/ nausea, cough, malaise Simple sepsis 2/2 UTI as suspected source Stable chronic problems affecting care, new non-acute diagnoses: MDD recurrent Hypothyroid Mental deficiency with verbal impediment Seizure disorder on prophylactic therapy (in process of changing regimen) Dependent edema Peptic ulcer disease Plan As a result of the above findings & factors, the following mgmt was pursued: - continue CTX - follow UC - neurology has resumed AED- Ethosuximide 250mg BID, VPA 500mg BID , LCM 100mg qAM and 150mg qPM - am labs, replace lytes prn - PT/OT/CM/SW - delirium precautions: increase activity - DVT prophylaxis: enoxaparin and encourage ambulation Complexity: Acute illness or injury posing a threat t (more content not included)... [facility] 12-05-2024 Plan of care note Problem: Knowledge Deficit Goal: Patient/family/caregiver demonstrates understanding of disease process, treatment plan, medications, and discharge instructions Outcome: Progressing Problem: Potential for Compromised Skin Integrity Goal: Skin Integrity is Maintained or Improved Outcome: Progressing Goal: Nutritional status is improving Outcome: Progressing Problem: Urinary Incontinence Goal: Perineal skin integrity is maintained or improved Outcome: Progressing [facility] 12-04-2024 Telephone encounter Note The following approved medication requests have been transmitted electronically. Requested Prescriptions Signed Prescriptions Disp Refills lacosamide (VIMPAT) 150 mg tab 180 tablet 1 Sig: Take 1 tablet by mouth two times a day for 180 days. Authorizing Provider: ARTIS HAMILTON APRN.CNP [facility] 12-04-2024 Plan of care note Problem: Knowledge Deficit Goal: Patient/family/caregiver demonstrates understanding of disease process, treatment plan, medications, and discharge instructions Outcome: Progressing Problem: Potential for Compromised Skin Integrity Goal: Skin Integrity is Maintained or Improved Outcome: Progressing Goal: Nutritional status is improving Outcome: Progressing Problem: Urinary Incontinence Goal: Perineal skin integrity is maintained or improved Outcome: Progressing [facility] 12-04-2024 Telephone encounter Note Spoke with nurse Katia at [facility]. Informed her of recommendations to increase LCM to 150mg BID, with read back. Nurse requests rx to be faxed to the facility. [facility] PH: [phone] FAX : [phone] Silvia Rogers RN [facility] 12-04-2024 Telephone encounter Note Called the patient's facility. Left message for the nurse to call back regarding recommendations. Silvia Rogers RN [facility] 12-04-2024 Note Formatting of this n ote might be different from the original. Pt discussed 12-04-24 during interdisciplinary rounds. Pt admitted from [facility] due to seizures. Pt has a history of seizure disorder. No needs anticipated but SW available as needs arise. [facility] 12-04-2024 Note Formatting of this n ote might be different from the original. Pt discussed 12-04- during interdisciplinary rounds. Pt admitted from [facility] due to seizures. Pt has a history of seizure disorder. No needs anticipated but SW available as needs arise. [facility] [employer] 12-04-2024 Note OCCUPATIONAL THERAPY [facility] Initial Evaluation Name/MRN: Katheryn Chino ([id number]) Evaluation Date: 12/04/2024 Date of : 1945 Admission Date: 12/03/2024 6:35 PM Age: 79 y.o. Room/Bed: N3-351/N3-351 A Discharge Recommendation: Home with Home health OT (ECF with OT) Equipment Needed: No Assessment IMPRESSION: ADL function is not far from baseline. Pt participatory and easily redirected when slightly impulsive. Able to complete ADL activity today with assist x 1. Will need BSC as pt is mostly wheelchair level at baseline. Recommend home health OT upon returning to her facility. Admitting Diagnosis: Breakthrough seizure, UTI. H/o developmental delay. Performance Deficits /Impairments: Decreased Functional Mobility, Decreased ADL status, Decreased Strength, Decreased Safety Awareness, Decreased Endurance, Decreased Balance, Decreased High Level IADLs, Decreased Cognition, Decreased Fine Motor Control, and Decreased Posture Prognosis: Good Decision Making: Medium Complexity Subjective Pt is pleasant and agreeable to OT. Goes by "Pat". Wound care in room and session coordinated with posterior skin check. Pt denies pain. Past Medical History: Past Medical History: Diagnosis Date Allergic rhinitis Dependent edema 01/27/2020 Essential hypertension 01/27/2020 Hypothyroidism 01/27/2020 Mental deficiency 01/27/2020 Peptic ulcer disease 01/27/2020 Seizure disorder (CMS/HCC) 01/27/2020 Past Surgical History: No past surgical history on file. Admission Diagnosis: Patient Active Problem List Diagnosis Date Noted Sepsis due to urinary tract infection (HCC) 12/03/2024 Obesity, Class I, BMI 30-34.9 08/18/2024 Breakthrough seizure (CMS/HCC) (HCC) 08/17/2024 Dysarthria 08/07/2018 Ataxia 08/07/2018 Depression 10/26/2020 Cerebellar degeneration (CMS/HCC) (HCC) 10/26/2020 Other specified hypothyroidism 01/27/2020 Seizure disorder (CMS/HCC) ([facility]) 01/27/2020 Peptic ulcer disease 01/27/2020 Dependent edema 01/27/2020 Mental deficiency 01/27/2020 Essential hypertension 01/27/2020 Hypothyroidism 01/27/2020 Allergic rhinitis 01/27/2020 Medical Precautions: No active isolations Proper PPE donned/doffed in accordance with facility standards. Fall Risk: Elaine Fall Risk Score: 35 (Medium Risk) Elaine Fall Risk Score: 35 (High Risk) Precautions/Restrictions: Fall Precautions (+) alarms; seizure precautions Family/Caregiver Present: none Overall Cognitive Status: H/o developmental delay Arousal: WFL Attention: Min cues Command Followin-step WFL Initiation: WFL Sequencing: Grossly WFL for ADL tasks Behaviors/Mood: Subtle impulsiveness, cooperative and easily redirected. Overall Orientation Status: Pt is at least AxOx self and hospital Social/Functional History From [facility] and has been there for 11.5 years. She typically uses w/c for mobility, which she can self-propel. She notes she does go to therapy and they do work on gait in parallel bars (and working on standing up straighter). Able to dress self normally, has assist for other ADLs. Prior Level of Function Prior Level of ADL Function: Required Assist Prior Level of Mobility: Required Assist (Working on ambulation with PT); Device: // bars with therapy only. Otherwise pt uses wheelchair Prior Level of Transfers: Required Assist Objective ADLs LE Dressing: Mod Assist, socks, difficulty reaching distally and assist to maintain figure-4 pose Toileting: Max Assist, posterior hygiene, samantha pads soiled with urine. Grooming: SBA, Oral care seated in recliner. Pt spilling over water cup. UE Dressing: SBA, gown changed simulating UE dressing Feeding: Breakfast meal 70% consumed. Pt reports she is full. States no assist required for feeding this date. *Mod SOB/wheezing sounds with minimal activity. Cues for proper breathing techniques throughout due to heavy mouth breathing. Upper Extremity Assessment AROM: WFL Strength: WFL Bed Mobility Pt up in chair upon arrival Transfers/Mobility Sit to stand: Mod Assist, x 2 trials with second stand improving to min assist Stand to sit: Min Assist Standing balance: Mod Assist, static balance at walker during hygiene and wound care skin check with pt improving to min assist with cues for forward weight shifting. Device(s) used: Front wheeled walker AM-PAC AM-PAC Inpatient Daily Activity Raw Score: 18 ADL Inpatient CMS G-Code Modifier: CK Plan Pt would benefit from skilled acute OT services to address Strengthening, ROM, Gait Training, Balance Training, Self-Care/ADL Training, Functional Mobility Training, Endurance Training, Safety Education and Training, Pain Management, Equipment Evaluation/Education, Cognitive Reorientation, Patient/Caregiver Training, Cognitive/Perceptual Training, and Positioning. Frequency: 2x/week for 4 weeks Barriers: Long standing deficits Safety/Education Safety Safety Devic (more content not included)... [facility] 12-04-2024 Nurse Note Wound Care consulted for Pressure Injury Prevention. Pt's Melo score= 16 on 2/20 Pt's pressure points assessed. Pt sitting in chair. OT present in room and assisted pt with standing for assessment of buttocks/coccyx. Pt's Heels, Buttocks/coccyx, Back, Elbows, Occiput and ears all intact. Prevention Measures in place, including: Ajo sheet with pillows, Foam heel protectors (obtained and applied), Heels elevated off bed on pillows, Sacral foam(obtained and applied), Zinc/Moisture Barrier ointment (obtained and applied), Waffle chair cushion (obtained for pt and placed under pt in chair). Skin Care precaution order set in place. Dietitian consult N/A, subscore=3. PT/OT consult in place. D/W nursing staff. Will continue to follow pt. Please Voicera for any questions or concerns. Aliza Goins RN, BSN, CWCN [facility] 12-04-2024 Nurse Note Wound Care consulted for Pressure Injury Prevention. Pt's Melo score= 16 on 2/20 Pt's pressure points assessed. Pt sitting in chair. OT present in room and assisted pt with standing for assessment of buttocks/coccyx. Pt's Heels, Buttocks/coccyx, Back, Elbows, Occiput and ears all intact. Prevention Measures in place, including: Ajo sheet with pillows, Foam heel protectors (obtained and applied), Heels elevated off bed on pillows, Sacral foam(obtained and applied), Zinc/Moisture Barrier ointment (obtained and applied), Waffle chair cushion (obtained for pt and placed under pt in chair). Skin Care precaution order set in place. Dietitian consult N/A, subscore=3. PT/OT consult in place. D/W nursing staff. Will continue to follow pt. Please Voicera for any questions or concerns. Aliza Goins RN, BSN, CWCN documented in this encounter [facility] 12-04-2024 Note PHYSICAL THERAPY [facility] Initial Evaluation Name/MRN: Katheryn Chino ([id number]) Evaluation Date: 12/04/2024 Date of : 1945 Admission Date: 12/03/2024 6:35 PM Age: 79 y.o. [facility] Discharge Recommendation: (return to facility (has been there 11 years)) Equipment Needed: No Assessment IMPRESSION: Pt notes she primarily uses w/c for mobility at facility, but helps with transfers and can self-propel. Has been working with PT for gait in parallel bars. Denies pain, but noted significant expiratory wheezing (currently on O2-normally not). Bed mobility min of 1 and mod of 1 [facility] Plan is to return to [facility]. Admitting Diagnosis: Sepsis due to UTI, Seizure (just had change in her medication) Prognosis: fair Performance Deficits /Impairments: Decreased Functional Mobility, Decreased Strength, and Decreased Endurance Decision Making: Medium Complexity Subjective Goes by Pat She states she feels generally fine (other than she is "wet"). Denies pain. Alert and oriented. Notes she does not normally wear O2 (has on 2L currently). Denies any stress with breathing. Pain: Pt denies any current pain. Past Medical History: Past Medical History: Diagnosis Date Allergic rhinitis Dependent edema 01/27/2020 Essential hypertension 01/27/2020 Hypothyroidism 01/27/2020 Mental deficiency 01/27/2020 Peptic ulcer disease 01/27/2020 Seizure disorder (CMS/HCC) 01/27/2020 Past Surgical History: No past surgical history on file. Admission Diagnosis: Patient Active Problem List Diagnosis Date Noted Sepsis due to urinary tract infection ([facility]) 12/03/2024 Obesity, Class I, BMI 30-34.9 08/18/2024 Breakthrough seizure ([facility]) ([facility]) 08/17/2024 Dysarthria 08/07/2018 Ataxia 08/07/2018 Depression 10/26/2020 Cerebellar degeneration ([facility]) ([facility]) 10/26/2020 Other specified hypothyroidism 01/27/2020 Seizure disorder ([facility]) ([facility]) 01/27/2020 Peptic ulcer disease 01/27/2020 Dependent edema 01/27/2020 Mental deficiency 01/27/2020 Essential hypertension 01/27/2020 Hypothyroidism 01/27/2020 Allergic rhinitis 01/27/2020 Medical Precautions: No active isolations Proper PPE donned/doffed in accordance with facility standards. Fall Risk: Elaine Fall Risk Score: 35 (Medium Risk) Elaine Fall Risk Score: 35 (High Risk) Precautions/Restrictions: Seizure Precautions Other Position/Activity Restriction: 2L O2, [place] Family/Caregiver Present: none Overall Cognitive Status: h/o delay, but speech intelligible and relevant; able to offer functional history indep Overall Orientation Status: Oriented x4 Vision: no overt issues noted Hearing: normal Social/Functional History From [facility] and has been there for 11.5 years. She typically uses w/c for mobility, which she can self-propel. She notes she does go to therapy and they do work on gait in parallel bars (and working on standing up straighter). Able to dress self normally, has assist for other ADLs. Prior Level of Function Prior Level of ADL Function: Required Assist (states could dress self) Prior Level of Mobility: Required Assist (only with PT); Device: Wheelchair - manual Prior Level of Transfers: Required Assist Objective Lower Extremity Assessment AROM: DF 5 deg carmela, SAQ from approx 30 deg to -5, Hip ABD 10 deg carmela in supine. UE screen-pt able to grasp with either hand, no difficulty shldr flex to 90. Strength: hip extn isometrics fair, Hip ABD fair-, knee extn 3+/5 carmela, DF 4-/5 carmela (no significantly R vs. L weakness) Sensation: Pt denies numbness and tingling Balance: sitting fair+ (one mild LOB posteriorly, one mild LOB to pt's L)-but self corrected. Standing balance poor+ (2/10 Modified [place]) Bed Mobility: Supine to sit: Min Assist Scooting: Mod Assist Transfers Sit to stand: Mod Assist Bed to chair: Mod Assist Ambulation Several small steps during pivot to chair, mod of 1. Outcome Measures AM-PAC How much HELP from another person do you currently need Turning from your back to your side while in a flat bed without using bedrails?: A Little Moving from lying on your back to sitting on the side of a flat bed without using bedrails?: A Little Moving to and from a bed to a chair (including a wheelchair)?: A Lot Standing up from a chair using your arms (wheelchair or bedside chair)?: A Lot Walking in a hospital room?: Total Stair climbing assessed?: No AM-PAC Inpatient Mobility Raw Score (No Stairs) : 11 JH-HLM -HL Score: Transferred to chair/commode Plan Pt would benefit from skilled acute PT services to address Strengthening, ROM, Balance Training, Functional Mobility Training, Endurance Training, Home Management Training, Patient/Caregiver Training, and (gait only if pt willing) . Frequency: 3x/week for 2 weeks Barriers: Impaired balance, Lower extremity weakness, Decreased endurance, Long (more content not included)... [facility] 12-04-2024 Consult note Associated Order (s): IP CONSULT TO NEUROLOGY General Neurology Consult Patient: Katheryn Chino Date of : 1945 Acct: [id number] PCP: Orville Mendoza DO Date of Admission: 12/03/2024 Date of Service: Pt seen/examined on 12/04/24 Chief Complaint: Breakthrough seizure History Of Present Illness: 79 y.o. female with past medical history significant for idiopathic generalized epilepsy (since childhood), cerebellar atrophy (on MRI in 2018, thought to be 2/2 chronic Dilantin use), wheelchair dependence, chronic dysarthria, hypothyroidism who presented from [facility] to [facility] 12/03 with complaint of breakthrough seizure. Patient follows with Dr. Jimenez from [facility] and has been having generalized tonic-clonic seizures and absence seizures since age [age]. Current AED regimen is supposed to be VPA 250mg TID, LCM 100mg BID, and ethosuximide 250mg BID. The patient is not able to provide any history from yesterday and denies any complaints at present. Per history obtained from RN at [facility] who witnessed event, it occurred yesterday morning and lasted about 35 minutes. It consisted of the patient slumped over in her chair, drooling, breathing heavily, and having overall stiffness without any clonic movement. She received two doses of intranasal Versed without response; episode stopped spontaneously about 20 minutes later. The night prior, patient had episode of emesis but had otherwise been in her normal state of rayshawn. Prior to this, the last witnessed seizure occurred 11/07/24. No missed doses of AED. Work-up so far has revealed patient being febrile (T max 101.8F), otherwise stable vitals. CMP unremarkable, mild leukocytosis (10.9), UA appears to be dirty sample, negative RPP, blood cultures in process, phenytoin level 14.1, valproic acid 18. No head imaging done, but CT abdomen did show mild inflammation of bladder. Patient started on antibiotics. Social History: The patient currently lives [facility] Occupation None Drives: No TOBACCO: reports that she has never smoked. She has never used smokeless tobacco. ETOH: reports no history of alcohol use. RECREATIONAL DRUG USE: Social History Substance and Sexual Activity Drug Use No REVIEW OF SYSTEMS: CONSTITUTIONAL: negative for fevers and chills, nightsweats EYES: negative for change in visual acuity HEENT: negative for nasal congestion RESPIRATORY: negative for chest pain CARDIOVASCULAR: negative for palpitations, dyspnea, chest pain GASTROINTESTINAL: negative for nausea, vomiting and change in bowel habits (RN from [facility] does report episode of emesis two days prior) GENITOURINARY: negative for change in frequency, dysuria and hematuria ENDOCRINE: negative for heat or cold intolerance of significant weight change MUSCULOSKELETAL: negative for myalgias, arthralgias and pain NEUROLOGICAL: negative aside from noted in HPI BEHAVIOR/PSYCH: negative for significant mood changes, anxiety, or agitation PHYSICAL EXAM: BP 125/69 (BP Location: Left arm, Patient Position: Lying) Pulse 83 Temp 36.9 C (98.4 F) (Temporal) Resp 20 Ht 1.6 m (5' 3") Wt 81.6 kg (179 lb 14.3 oz) SpO2 98% BMI 31.87 kg/m General Appearance: Well-nourished, no acute distress, resting in bed Cardiovascular: +S1, S2, regular rate and rhythm Pulmonary: CTAB Abdomen: Soft, nontender, nondistended Skin: Intact Extremities: No bilateral lower extremity edema Mental Status Exam: Level of Alertness: awake Orientation: Oriented to person and place; not to time Memory: Diminished Fund of Knowledge: Diminished Attention/Concentration: normal Language: Dysarthria (chronic) Cranial Nerves Cranial nerve II Visual acuity: normal Visual hunt: normal Cranial nerve III Pupils: equal, round, reactive to light Cranial nerves III, IV, Extraocular Movements: intact Cranial nerve V Facial sensation: intact Cranial nerve VII Facial strength: intact Cranial nerve VIII Hearing: intact Cranial nerve IX Palate: intact Cranial nerve XI Shoulder shrug: intact Cranial nerve XII Tongue movement: normal Motor: Drift: absent Motor: normal Tone: normal Abnormal Movements: absent Sensory: Touch Right Upper Extremity: normal Left Upper Extremity: normal Right Lower Extremity: normal Left Lower Extremity: normal Proprioception Right Upper Extremity: normal Left Upper Extremity: normal Right Lower Extremity: normal Left Lower Extremity: normal Coordination: Finger/Nose Right: Mild ataxia at endpoints Left: Mild ataxia at endpoints [id number] Right: normal Left: normal Rapid Alternating Movements Right: reduced speed Left: reduced speed Radiology: (personally reviewed) No head imaging done ASSESSMENT/PLAN: Summary: Patient is a 79 year old female with pertinent medical history of idiopathic epilepsy (since childhood) and cerebellar atrophy who presented to [facility] on 12/03 following witnessed seizure at facility. She met criteria for simple sepsis on admission. Neurology consulted for seizure management. Witnessed seizure 12/03, possibly due to active infection vs medication non-adherence vs breakthrough seizure Idiopathic epilepsy (confirmed on EEG 2017) with treatment resistance vs medication non-adherence Sepsis of unclear etiology Mental disability - Check CTH wo contrast. No brain imaging appears to have been done at OSH or at [facility]. - Infectious work-up and treatment per primary team. Suspect seizure occurred either due to lowered seizure threshold 2 infection vs medication non-adherence. - Check LCM level and free valproic acid level - Recommend the following AED regimen: - ethosuximide 250mg BID (outpatient dose) - VPA 500mg BID (discrepancy between last outpatient neurology note and MAR from [facility], so will average the two) - LCM continue 100mg qAM and increase nightly dose to 150mg - Will discontinue phenytoin as patient had stopped this medication as outpatient - Will need repeat AED levels in one week. Already established with neurology through [facility], so can follow-up with them as outpatient. - Low threshold for LP if other infectious work-up unrevealing or patient clinically worsens. Cosigned by Susan Reyes MD at 12/04/2024 3:20 PM EST Associated attestation - Susan Reyes MD - 12/04/2024 3:20 PM EST I have seen, examined and evaluated the patient with the resident physician or nurse practitioner under my direct supervision. I have reviewed the resident physician's or nurse practitioner's note and agree with the assessment and plan of care as documented with the following addendum. HPI, social history, family history, and ROS have been reviewed and verified. Briefly, patient is a 79 yo female with past medical history of idiopathic generalized epilepsy, cerebellar atrophy, cognitive impairment, chronic dysarthria, hypothyroidism presents from SNF with breakthrough seizure in the setting of n/v and recent changes to ADM regimen. Patient follows with [facility] neurology and has known intractable epilepsy, now on three AED's. It is unclear what her baseline seizure frequency is. She has been on VPA, PHT, ETX in the past. She was relatively recently weaned off PHT and started on lacosamide 100mg BID. Her VPA level in 09/07 was supratherapeutic at 120 and it appears her dose of 500mg TID may have been reduced to 250mg TID. It is difficult to discern actual AED regimen as there is discrepancy between SNF med rec and last neurology note. Patient herself is unable to provide much history. Per notes, patient had 20 minute episode of decreased responsiveness with body rigidity. She received two doses of intranasal versed. Her last seizure prior to this one was last month. She did have an episode of emesis the night prior to presentation and was febrile at 101.8 here. UA with + leuks, BC pending, CXR negative. COVID negative. CT head negative for acute abn. Neurologic exam as below (Examined independently, any additions, pertinent findings, or revisions noted here) alert, oriented x2 speech: normal in context, dysarthric memory: very limited historian cranial nerves II-XII: intact motor strength: 4+-5/5 b/l UE, 3+/5 b/l LE no involuntary movements or tremors sensation: intact to light touch cerebellar: [id number] slow but intact gait: deferred secondary to fall risk reflexes: full and symmetric plantar responses: downgoing bilaterally CT Head w/o contrast 12/04/24 No acute intracranial abnormalities or significant change from the prior study. Routine EEG 08/17/24 This EEG supports the diagnosis of a moderate diffuse encephalopathy. No epileptiform discharges or EEG seizures were seen during this recording. Routine EEG 08/15/18 This EEG supports the diagnosis of generalized epilepsy. There were infrequent spike wave discharges generalized during sleep. No EEG seizures were detected. Assessment and Plan: 79 yo female with past medical history of idiopathic generalized epilepsy, cerebellar atrophy, cognitive impairment, chronic dysarthria, hypothyroidism presents from SNF with breakthrough seizure in the setting of n/v and recent changes to ADM regimen. 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 [facility] 12-04-2024 Consult note Associated Order (s): IP CONSULT TO NEUROLOGY General Neurology Consult Patient: Katheryn Chino Date of : 1945 Acct: [id number] PCP: Orville Mendoza DO Date of Admission: 12/03/2024 Date of Service: Pt seen/examined on 12/04/24 Chief Complaint: Breakthrough seizure History Of Present Illness: 79 y.o. female with past medical history significant for idiopathic generalized epilepsy (since childhood), cerebellar atrophy (on MRI in 2018, thought to be 2/2 chronic Dilantin use), wheelchair dependence, chronic dysarthria, hypothyroidism who presented from [facility] to [facility] 12/03 with complaint of breakthrough seizure. Patient follows with Dr. Jimenez from [facility] and has been having generalized tonic-clonic seizures and absence seizures since age [age]. Current AED regimen is supposed to be VPA 250mg TID, LCM 100mg BID, and ethosuximide 250mg BID. The patient is not able to provide any history from yesterday and denies any complaints at present. Per history obtained from RN at [facility] who witnessed event, it occurred yesterday morning and lasted about 35 minutes. It consisted of the patient slumped over in her chair, drooling, breathing heavily, and having overall stiffness without any clonic movement. She received two doses of intranasal Versed without response; episode stopped spontaneously about 20 minutes later. The night prior, patient had episode of emesis but had otherwise been in her normal state of rayshawn. Prior to this, the last witnessed seizure occurred 11/07/24. No missed doses of AED. Work-up so far has revealed patient being febrile (T max 101.8F), otherwise stable vitals. CMP unremarkable, mild leukocytosis (10.9), UA appears to be dirty sample, negative RPP, blood cultures in process, phenytoin level 14.1, valproic acid 18. No head imaging done, but CT abdomen did show mild inflammation of bladder. Patient started on antibiotics. Social History: The patient currently lives [facility] Occupation None Drives: No TOBACCO: reports that she has never smoked. She has never used smokeless tobacco. ETOH: reports no history of alcohol use. RECREATIONAL DRUG USE: Social History Substance and Sexual Activity Drug Use No REVIEW OF SYSTEMS: CONSTITUTIONAL: negative for fevers and chills, nightsweats EYES: negative for change in visual acuity HEENT: negative for nasal congestion RESPIRATORY: negative for chest pain CARDIOVASCULAR: negative for palpitations, dyspnea, chest pain GASTROINTESTINAL: negative for nausea, vomiting and change in bowel habits (RN from [facility] does report episode of emesis two days prior) GENITOURINARY: negative for change in frequency, dysuria and hematuria ENDOCRINE: negative for heat or cold intolerance of significant weight change MUSCULOSKELETAL: negative for myalgias, arthralgias and pain NEUROLOGICAL: negative aside from noted in HPI BEHAVIOR/PSYCH: negative for significant mood changes, anxiety, or agitation PHYSICAL EXAM: BP 125/69 (BP Location: Left arm, Patient Position: Lying) Pulse 83 Temp 36.9 C (98.4 F) (Temporal) Resp 20 Ht 1.6 m (5' 3") Wt 81.6 kg (179 lb 14.3 oz) SpO2 98% BMI 31.87 kg/m General Appearance: Well-nourished, no acute distress, resting in bed Cardiovascular: +S1, S2, regular rate and rhythm Pulmonary: CTAB Abdomen: Soft, nontender, nondistended Skin: Intact Extremities: No bilateral lower extremity edema Mental Status Exam: Level of Alertness: awake Orientation: Oriented to person and place; not to time Memory: Diminished Fund of Knowledge: Diminished Attention/Concentration: normal Language: Dysarthria (chronic) Cranial Nerves Cranial nerve II Visual acuity: normal Visual hunt: normal Cranial nerve III Pupils: equal, round, reactive to light Cranial nerves III, IV, Extraocular Movements: intact Cranial nerve V Facial sensation: intact Cranial nerve VII Facial strength: intact Cranial nerve VIII Hearing: intact Cranial nerve IX Palate: intact Cranial nerve XI Shoulder shrug: intact Cranial nerve XII Tongue movement: normal Motor: Drift: absent Motor: normal Tone: normal Abnormal Movements: absent Sensory: Touch Right Upper Extremity: normal Left Upper Extremity: normal Right Lower Extremity: normal Left Lower Extremity: normal Proprioception Right Upper Extremity: normal Left Upper Extremity: normal Right Lower Extremity: normal Left Lower Extremity: normal Coordination: Finger/Nose Right: Mild ataxia at endpoints Left: Mild ataxia at endpoints Xmoi-Pckw-Stis Right: normal Left: normal Rapid Alternating Movements Right: reduced speed Left: reduced speed Radiology: (personally reviewed) No head imaging done ASSESSMENT/PLAN: Summary: Patient is a 79 year old female with pertinent medical history of idiopathic epilepsy (since childhood) and cerebellar atrophy who presented to [facility] on 12/03 following witnessed seizure at facility. She met criteria for simple sepsis on admission. Neurology consulted for seizure management. Witnessed seizure 12/03, possibly due to active infection vs medication non-adherence vs breakthrough seizure Idiopathic epilepsy (confirmed on EEG 2017) with treatment resistance vs medication non-adherence Sepsis of unclear etiology Mental disability - Check CTH wo contrast. No brain imaging appears to have been done at OSH or at [facility]. - Infectious work-up and treatment per primary team. Suspect seizure occurred either due to lowered seizure threshold 11/16 infection vs medication non-adherence. - Check LCM level and free valproic acid level - Recommend the following AED regimen: - ethosuximide 250mg BID (outpatient dose) - VPA 500mg BID (discrepancy between last outpatient neurology note and MAR from [facility], so will average the two) - LCM continue 100mg qAM and increase nightly dose to 150mg - Will discontinue phenytoin as patient had stopped this medication as outpatient - Will need repeat AED levels in one week. Already established with neurology through [facility], so can follow-up with them as outpatient. - Low threshold for LP if other infectious work-up unrevealing or patient clinically worsens. Cosigned by Susan Reyes MD at 12/04/2024 3:20 PM EST Associated attestation - Susan Reyes MD - 12/04/2024 3:20 PM EST I have seen, examined and evaluated the patient with the resident physician or nurse practitioner under my direct supervision. I have reviewed the resident physician's or nurse practitioner's note and agree with the assessment and plan of care as documented with the following addendum. HPI, social history, family history, and ROS have been reviewed and verified. Briefly, patient is a 79 yo female with past medical history of idiopathic generalized epilepsy, cerebellar atrophy, cognitive impairment, chronic dysarthria, hypothyroidism presents from SNF with breakthrough seizure in the setting of n/v and recent changes to ADM regimen. Patient follows with [facility] neurology and has known intractable epilepsy, now on three AED's. It is unclear what her baseline seizure frequency is. She has been on VPA, PHT, ETX in the past. She was relatively recently weaned off PHT and started on lacosamide 100mg BID. Her VPA level in 09/07 was supratherapeutic at 120 and it appears her dose of 500mg TID may have been reduced to 250mg TID. It is difficult to discern actual AED regimen as there is discrepancy between SNF med rec and last neurology note. Patient herself is unable to provide much history. Per notes, patient had 20 minute episode of decreased responsiveness with body rigidity. She received two doses of intranasal versed. Her last seizure prior to this one was last month. She did have an episode of emesis the night prior to presentation and was febrile at 101.8 here. UA with + leuks, BC pending, CXR negative. COVID negative. CT head negative for acute abn. Neurologic exam as below (Examined independently, any additions, pertinent findings, or revisions noted here) alert, oriented x2 speech: normal in context, dysarthric memory: very limited historian cranial nerves II-XII: intact motor strength: 4+-5/5 b/l UE, 3+/5 b/l LE no involuntary movements or tremors sensation: intact to light touch cerebellar: [id number] slow but intact gait: deferred secondary to fall risk reflexes: full and symmetric plantar responses: downgoing bilaterally CT Head w/o contrast 12/04/24 No acute intracranial abnormalities or significant change from the prior study. Routine EEG 08/17/24 This EEG supports the diagnosis of a moderate diffuse encephalopathy. No epileptiform discharges or EEG seizures were seen during this recording. Routine EEG 08/15/18 This EEG supports the diagnosis of generalized epilepsy. There were infrequent spike wave discharges generalized during sleep. No EEG seizures were detected. Assessment and Plan: 79 yo female with past medical history of idiopathic generalized epilepsy, cerebellar atrophy, cognitive impairment, chronic dysarthria, hypothyroidism presents from SNF with breakthrough seizure in the setting of n/v and recent changes to ADM regimen. 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 documented in this encounter [facility] 12-04-2024 History and physical note Attending History and Physical Admit Date: 12/03/2024 PCP: Orville Mendoza DO CHIEF COMPLAINT: Breakthrough seizure Reason for Admission: Sepsis criteria 2/2 UTI as suspected source History Obtained From: patient HISTORY OF PRESENT ILLNESS: Katheryn is a 79 y.o. female with past medical history below who presents with chief complaint listed above. Presenting from [facility] for breakthrough seizure, Was found to meet simple sepsis criteria with UTI as likely source lowering threshold. Additionally patient was in the process of switching seizure prophlaxis medications with their neurologist. Dilantin/vimpat patient unsure in which direction. Reportedly 30 min seizure event at her facility, was not postictal when later arrived to ED and neurologically intact. UA was consistent with UTI. Febrile, tachycardic, . Will admit for further evaluation and management. Past Medical History: Past Medical History: Diagnosis Date Allergic rhinitis Dependent edema 01/27/2020 Essential hypertension 01/27/2020 Hypothyroidism 01/27/2020 Mental deficiency 01/27/2020 Peptic ulcer disease 01/27/2020 Seizure disorder (CMS/HCC) 01/27/2020 Past Surgical History: No past surgical history on file. Social History: Social History Socioeconomic History Marital status: Single Spouse name: Not on file Number of children: Not on file Years of education: Not on file Highest education level: Not on file Occupational History Not on file Tobacco Use Smoking status: Never Smokeless tobacco: Never Substance and Sexual Activity Alcohol use: No Drug use: No Sexual activity: Not on file Other Topics Concern Not on file Social History Narrative Not on file Social Drivers of Health Financial Resource Strain: Not on file Food Insecurity: No Food Insecurity (08/18/2024) Received from [facility] Hunger Vital Sign Worried About Running Out of Food in the Last Year: Never true Ran Out of Food in the Last Year: Never true Transportation Needs: No Transportation Needs (08/18/2024) Received from [facility] PRAPARE - Transportation Lack of Transportation (Medical): No Lack of Transportation (Non-Medical): No Physical Activity: Not on file Stress: Not on file Social Connections: Not on file Intimate Partner Violence: Not on file Housing Stability: Low Risk (08/18/2024) Received from [facility] Housing Stability Vital Sign Unable to Pay for Housing in the Last Year: No Number of Times Moved in the Last Year: 0 Homeless in the Last Year: No Family History: No family history on file. Medications Prior to Admission: No current facility-administered medications on file prior to encounter. No current outpatient medications on file prior to encounter. Allergies: No Known Allergies REVIEW OF SYSTEMS: See hpi Vitals: BP 135/85 Pulse 80 Temp 36.7 C (98.1 F) (Oral) Resp 24 Ht 5' 3" (1.6 m) Wt 179 lb 14.3 oz (81.6 kg) SpO2 96% BMI 31.87 kg/m BMI Classification: Obese (BMI 30.0-39.9) Pulse Ox: SpO2 Av % Min: 95 % Max: 97 % Supplemental O2: O2 Flow Rate (L/min): 2 L/min PHYSICAL EXAM: Physical Exam Constitutional: General: She is not in acute distress. HENT: Head: Atraumatic. Eyes: Extraocular Movements: Extraocular movements intact. Cardiovascular: Rate and Rhythm: Normal rate. Pulmonary: Effort: Pulmonary effort is normal. Breath sounds: Normal breath sounds. Neurological: Mental Status: She is alert. Mental status is at baseline. Psychiatric: Mood and Affect: Mood normal. Behavior: Behavior normal. Comments: Conversant, understandable, pleasant, made a joke expressed frustration with med changes even though she request's the med changes DATA: CBC: Recent Labs 12/03/241939 WBC 10.9* RBC 4.12 HGB 11.6* HCT 36.9 MCV 89.6 RDW 13.2 PLT 202 BMP: Recent Labs 12/03/241939 NA 141 K 4.1 CL 109* CO2 22* BUN 23 CREATININE 0.82 GLUCOSE 112 CALCIUM 8.5* ANIONGAP 10 LIVER PROFILE: Recent Labs 12/03/241939 AST 31 ALT 14 BILITOT 0.5 ALKPHOS 90 PROT 7.1 PT/INR: No results for input(s): "PROTIME", "INR" in the last 72 hours. CARDIAC ENZYMES: No results for input(s): "TROPONINI" in the last 72 hours. Procalcitonin: No results found for: "PROCAL" Urine Culture: No results found for this or any previous visit. COVID-19 PCR: No results for input(s): "COVID19" in the last 72 hours. I reviewed: [x] laboratory results [x] radiographic results At the time of today's encounter. Pt was advised of the results. Data: (CAT1) Reviewed 3 or more notes from different specialty or health system (each=1). (CAT1) Reviewed 2 labs/studies ordered by another provider not previously counted (each=1, panels count as 1). (CAT1) Ordered 2 new labs and/or studies (each=1, panels count as 1). (CAT3) Discussed with ED provider, Rancho Diamond PA-C, regarding patient's eval & mgmt thus far, and agree with the plan for hospitalization. (LOW: 2x CAT1 or independent historian MOD: 3x CAT1 or 1x CAT3 EXTENSIVE: 3x CAT1 and 1x CAT3) Assessment Discussed management with the ED provider and agree with hospitalization. Acute, acute on chronic, unstable/uncontrolled chronic problems/diagnoses: Breakthrough seizure Abdominal pain w/ nausea, cough, malaise Simple sepsis 2/2 UTI as suspected source Stable chronic problems affecting care, new non-acute diagnoses: MDD recurrent Hypothyroid Mental deficiency with verbal impediment Seizure disorder on prophylactic therapy (in process of changing regimen) Dependent edema Peptic ulcer disease Plan As a result of the above findings & factors, the following mgmt was pursued: - admit to [facility] - obtain collateral from SNF when able, patient w/o current med list - consult to neuro - home meds as appropriate - am labs, replace lytes prn - PT/OT/CM/SW - delirium precautions: increase activity, schedule melatonin at bedtime, limit nighttime disturbances, and avoid anticholinergic meds, benzos, etc - DVT prophylaxis: SCDs and encourage ambulation Complexity: Acute illness or injury posing a threat to life or body function (HIGH). Chronic illness with severe exacerbation, progression, or side effect of tx (HIGH). Multiple stable chronic illnesses (MOD). Risk: Use/consideration of a high risk treatment or study: IV controlled substances (HIGH). Admission to hospital-level care was considered or occurred (HIGH). Prescription drug/IVF/colloid was initiated, discontinued, adjusted; or reviewed with decision to maintain current orders (MOD). Advance Directive: No Order Anticipated Discharge - Date - 12/08 - Location - Skilled Facility - Pending the following - UTI repeat cx clear, specialist recs, seizure med regimen adjustment as needed Total time spent (which include face to face and non face to face encounters) : 48 minutes. Extended Emergency Contact Information Primary Emergency Contact: Danny Chino Mobile Relation: Brother Septic Tank Installer needed? No Fazal Garza MD Division of Hospital Medicine [facility] 12-04-2024 Note Attending History an d Physical Admit Date: 12/03/2024 PCP: Orville Mendoza DO CHIEF COMPLAINT: Breakthrough seizure Reason for Admission: Sepsis criteria 2/2 UTI as suspected source History Obtained From: patient HISTORY OF PRESENT ILLNESS: Katheryn is a 79 y.o. female with past medical history below who presents with chief complaint listed above. Presenting from [facility] for breakthrough seizure, Was found to meet simple sepsis criteria with UTI as likely source lowering threshold. Additionally patient was in the process of switching seizure prophlaxis medications with their neurologist. Dilantin/vimpat patient unsure in which direction. Reportedly 30 min seizure event at her facility, was not postictal when later arrived to ED and neurologically intact. UA was consistent with UTI. Febrile, tachycardic, . Will admit for further evaluation and management. Past Medical History: Past Medical History: Diagnosis Date Allergic rhinitis Dependent edema 01/27/2020 Essential hypertension 01/27/2020 Hypothyroidism 01/27/2020 Mental deficiency 01/27/2020 Peptic ulcer disease 01/27/2020 Seizure disorder (CMS/HCC) 01/27/2020 Past Surgical History: No past surgical history on file. Social History: Social History Socioeconomic History Marital status: Single Spouse name: Not on file Number of children: Not on file Years of education: Not on file Highest education level: Not on file Occupational History Not on file Tobacco Use Smoking status: Never Smokeless tobacco: Never Substance and Sexual Activity Alcohol use: No Drug use: No Sexual activity: Not on file Other Topics Concern Not on file Social History Narrative Not on file Social Drivers of Health Financial Resource Strain: Not on file Food Insecurity: No Food Insecurity (08/18/2024) Received from [facility] Hunger Vital Sign Worried About Running Out of Food in the Last Year: Never true Ran Out of Food in the Last Year: Never true Transportation Needs: No Transportation Needs (08/18/2024) Received from [facility] PRAPARE - Transportation Lack of Transportation (Medical): No Lack of Transportation (Non-Medical): No Physical Activity: Not on file Stress: Not on file Social Connections: Not on file Intimate Partner Violence: Not on file Housing Stability: Low Risk (08/18/2024) Received from [facility] Housing Stability Vital Sign Unable to Pay for Housing in the Last Year: No Number of Times Moved in the Last Year: 0 Homeless in the Last Year: No Family History: No family history on file. Medications Prior to Admission: No current facility-administered medications on file prior to encounter. No current outpatient medications on file prior to encounter. Allergies: No Known Allergies REVIEW OF SYSTEMS: See hpi Vitals: BP 135/85 Pulse 80 Temp 36.7 ?C (98.1 ?F) (Oral) Resp 24 Ht 5' 3" (1.6 m) Wt 179 lb 14.3 oz (81.6 kg) SpO2 96% BMI 31.87 kg/m? BMI Classification: Obese (BMI 30.0-39.9) Pulse Ox: SpO2 Av % Min: 95 % Max: 97 % Supplemental O2: O2 Flow Rate (L/min): 2 L/min PHYSICAL EXAM: Physical Exam Constitutional: General: She is not in acute distress. HENT: Head: Atraumatic. Eyes: Extraocular Movements: Extraocular movements intact. Cardiovascular: Rate and Rhythm: Normal rate. Pulmonary: Effort: Pulmonary effort is normal. Breath sounds: Normal breath sounds. Neurological: Mental Status: She is alert. Mental status is at baseline. Psychiatric: Mood and Affect: Mood normal. Behavior: Behavior normal. Comments: Conversant, understandable, pleasant, made a joke expressed frustration with med changes even though she request's the med changes DATA: CBC: Recent Labs 12/03/241939 WBC 10.9* RBC 4.12 HGB 11.6* HCT 36.9 MCV 89.6 RDW 13.2 PLT 202 BMP: Recent Labs 12/03/241939 NA 141 K 4.1 CL 109* CO2 22* BUN 23 CREATININE 0.82 GLUCOSE 112 CALCIUM 8.5* ANIONGAP 10 LIVER PROFILE: Recent Labs 12/03/241939 AST 31 ALT 14 BILITOT 0.5 ALKPHOS 90 PROT 7.1 PT/INR: No results for input(s): "PROTIME", "INR" in the last 72 hours. CARDIAC ENZYMES: No results for input(s): "TROPONINI" in the last 72 hours. Procalcitonin: No results found for: "PROCAL" Urine Culture: No results found for this or any previous visit. COVID-19 PCR: No results for input(s): "COVID19" in the last 72 hours. I reviewed: [x] laboratory results [x] radiographic results At the time of today's encounter. Pt was advised of the results. Data: (CAT1) Reviewed 3 or more notes from different specialty or health system (each=1). (CAT1) Reviewed 2 labs/studies ordered by another provider not previously counted (each=1, panels count as 1). (CAT1) Ordered 2 new labs and/or studies (each=1, panels count as 1). (CAT3) Discussed with ED provider, Rancho Diamond PA-C, regarding patient's eval & mg (more content not included)... [facility] 12-04-2024 History and physical note Attending History and Physical Admit Date: 12/03/2024 PCP: Orville Mendoza DO CHIEF COMPLAINT: Breakthrough seizure Reason for Admission: Sepsis criteria 2/2 UTI as suspected source History Obtained From: patient HISTORY OF PRESENT ILLNESS: Katheryn is a 79 y.o. female with past medical history below who presents with chief complaint listed above. Presenting from [facility] for breakthrough seizure, Was found to meet simple sepsis criteria with UTI as likely source lowering threshold. Additionally patient was in the process of switching seizure prophlaxis medications with their neurologist. Dilantin/vimpat patient unsure in which direction. Reportedly 30 min seizure event at her facility, was not postictal when later arrived to ED and neurologically intact. UA was consistent with UTI. Febrile, tachycardic, . Will admit for further evaluation and management. Past Medical History: Past Medical History: Diagnosis Date Allergic rhinitis Dependent edema 01/27/2020 Essential hypertension 01/27/2020 Hypothyroidism 01/27/2020 Mental deficiency 01/27/2020 Peptic ulcer disease 01/27/2020 Seizure disorder (CMS/HCC) 01/27/2020 Past Surgical History: No past surgical history on file. Social History: Social History Socioeconomic History Marital status: Single Spouse name: Not on file Number of children: Not on file Years of education: Not on file Highest education level: Not on file Occupational History Not on file Tobacco Use Smoking status: Never Smokeless tobacco: Never Substance and Sexual Activity Alcohol use: No Drug use: No Sexual activity: Not on file Other Topics Concern Not on file Social History Narrative Not on file Social Drivers of Health Financial Resource Strain: Not on file Food Insecurity: No Food Insecurity (08/18/2024) Received from [facility] Hunger Vital Sign Worried About Running Out of Food in the Last Year: Never true Ran Out of Food in the Last Year: Never true Transportation Needs: No Transportation Needs (08/18/2024) Received from [facility] PRAPARE - Transportation Lack of Transportation (Medical): No Lack of Transportation (Non-Medical): No Physical Activity: Not on file Stress: Not on file Social Connections: Not on file Intimate Partner Violence: Not on file Housing Stability: Low Risk (08/18/2024) Received from [facility] Housing Stability Vital Sign Unable to Pay for Housing in the Last Year: No Number of Times Moved in the Last Year: 0 Homeless in the Last Year: No Family History: No family history on file. Medications Prior to Admission: No current facility-administered medications on file prior to encounter. No current outpatient medications on file prior to encounter. Allergies: No Known Allergies REVIEW OF SYSTEMS: See hpi Vitals: BP 135/85 Pulse 80 Temp 36.7 C (98.1 F) (Oral) Resp 24 Ht 5' 3" (1.6 m) Wt 179 lb 14.3 oz (81.6 kg) SpO2 96% BMI 31.87 kg/m BMI Classification: Obese (BMI 30.0-39.9) Pulse Ox: SpO2 Av % Min: 95 % Max: 97 % Supplemental O2: O2 Flow Rate (L/min): 2 L/min PHYSICAL EXAM: Physical Exam Constitutional: General: She is not in acute distress. HENT: Head: Atraumatic. Eyes: Extraocular Movements: Extraocular movements intact. Cardiovascular: Rate and Rhythm: Normal rate. Pulmonary: Effort: Pulmonary effort is normal. Breath sounds: Normal breath sounds. Neurological: Mental Status: She is alert. Mental status is at baseline. Psychiatric: Mood and Affect: Mood normal. Behavior: Behavior normal. Comments: Conversant, understandable, pleasant, made a joke expressed frustration with med changes even though she request's the med changes DATA: CBC: Recent Labs 12/03/241939 WBC 10.9* RBC 4.12 HGB 11.6* HCT 36.9 MCV 89.6 RDW 13.2 PLT 202 BMP: Recent Labs 12/03/241939 NA 141 K 4.1 CL 109* CO2 22* BUN 23 CREATININE 0.82 GLUCOSE 112 CALCIUM 8.5* ANIONGAP 10 LIVER PROFILE: Recent Labs 12/03/241939 AST 31 ALT 14 BILITOT 0.5 ALKPHOS 90 PROT 7.1 PT/INR: No results for input(s): "PROTIME", "INR" in the last 72 hours. CARDIAC ENZYMES: No results for input(s): "TROPONINI" in the last 72 hours. Procalcitonin: No results found for: "PROCAL" Urine Culture: No results found for this or any previous visit. COVID-19 PCR: No results for input(s): "COVID19" in the last 72 hours. I reviewed: [x] laboratory results [x] radiographic results At the time of today's encounter. Pt was advised of the results. Data: (CAT1) Reviewed 3 or more notes from different specialty or health system (each=1). (CAT1) Reviewed 2 labs/studies ordered by another provider not previously counted (each=1, panels count as 1). (CAT1) Ordered 2 new labs and/or studies (each=1, panels count as 1). (CAT3) Discussed with ED provider, Rancho Diamond PA-C, regarding patient's eval & mgmt thus far, and agree with the plan for hospitalization. (LOW: 2x CAT1 or independent historian MOD: 3x CAT1 or 1x CAT3 EXTENSIVE: 3x CAT1 and 1x CAT3) Assessment Discussed management with the ED provider and agree with hospitalization. Acute, acute on chronic, unstable/uncontrolled chronic problems/diagnoses: Breakthrough seizure Abdominal pain w/ nausea, cough, malaise Simple sepsis 2/2 UTI as suspected source Stable chronic problems affecting care, new non-acute diagnoses: MDD recurrent Hypothyroid Mental deficiency with verbal impediment Seizure disorder on prophylactic therapy (in process of changing regimen) Dependent edema Peptic ulcer disease Plan As a result of the above findings & factors, the following mgmt was pursued: - admit to [facility] - obtain collateral from SNF when able, patient w/o current med list - consult to neuro - home meds as appropriate - am labs, replace lytes prn - PT/OT/CM/SW - delirium precautions: increase activity, schedule melatonin at bedtime, limit nighttime disturbances, and avoid anticholinergic meds, benzos, etc - DVT prophylaxis: SCDs and encourage ambulation Complexity: Acute illness or injury posing a threat to life or body function (HIGH). Chronic illness with severe exacerbation, progression, or side effect of tx (HIGH). Multiple stable chronic illnesses (MOD). Risk: Use/consideration of a high risk treatment or study: IV controlled substances (HIGH). Admission to hospital-level care was considered or occurred (HIGH). Prescription drug/IVF/colloid was initiated, discontinued, adjusted; or reviewed with decision to maintain current orders (MOD). Advance Directive: No Order Anticipated Discharge - Date - 12/08 - Location - Skilled Facility - Pending the following - UTI repeat cx clear, specialist recs, seizure med regimen adjustment as needed Total time spent (which include face to face and non face to face encounters) : 48 minutes. Extended Emergency Contact Information Primary Emergency Contact: Danny Chino Mobile Relation: Brother Septic Tank Installer needed? No Fazal Garza MD Division of Hospital Medicine [place]patient Medical Services[place] in this encounter [facility] 12-03-2024 Emergency department Note Emergency Department Encounter [facility] EMERGENCY DEPT Patient: Katheryn Chino : 1945 Date of Evaluation: 12/03/2024 ED Supervising Physician: Miriam Hennessy DO I personally evaluated Katheryn Chino and made/approved the management plan and take responsibility for the patient management. This will serve as my Supervisory note and shared attestation. I did perform a substantive portion of the visit including all aspects of the Medical Decision Making. I wore appropriate PPE for the entirety of this encounter. In brief, Katheryn Chino female with past medical history significant for seizure disorder, hypertension, hypothyroidism is a 79 y.o. that presents to the emergency department as a transfer from [facility] for breakthrough seizure. Patient reports she has a history of seizures. Reports recently her neurologist decreased her antiepileptic medication. Reports that today she had a seizure. On arrival, patient is complaining of abdominal pain, nausea. Reports she recently had a cough, abdominal pain, and she has been feeling unwell. Focused exam: General: Appears well, nontoxic, no distress HEENT: Pupils equal and round, EOMI Cardiovascular: RRR, no murmurs respiratory: CTAB, no wheeze, no conversational dyspnea gastrointestinal: Soft, nondistended, tender in the epigastric region, no rebound or involuntary guarding Neurological: Alert, moving all extremities spontaneously Brief ED course/MDM: Patient is a 79-year-old female with past medical history significant for seizure presenting to the ED for evaluation of breakthrough seizure Concern for breakthrough seizure in the setting of infectious process as the patient was febrile on arrival. Reports she has basically been feeling unwell, having nausea and abdominal pain. Obtained CT abdomen pelvis, urinalysis, additional labs. Viral panel negative. UA consistent with UTI. Mild leukocytosis at 10.9. CT abdomen pelvis with possible cystitis and gallstones. Patient does not have any tenderness specifically in the right upper quadrant, no transaminitis or elevation in bilirubin or alk phos on CMP, low suspicion for acute cholecystitis. Chest x-ray clear. Will admit the patient for urosepsis, breakthrough seizure. Patient given Rocephin for UTI. Diagnostics interpreted by me: I personally discussed the patient's management with other clinicians: All diagnostic, treatment, and disposition decisions were made by myself in conjunction with the MARIO. For all further details of the patient's emergency department visit, please see their documentation. (Comment: Please note this report has been produced using speech recognition software and may contain errors related to that system including errors in grammar, punctuation, and spelling, as well as words and phrases that may be inappropriate. If there are any questions or concerns please feel free to contact the dictating provider for clarification.) Miriam Hennessy DO Acute Care [facility] Miriam Hennessy DO 12/04/24 0003 EMERGENCY DEPARTMENT ENCOUNTER Pt Name: Katheryn Chino Birthdate 1945 Date of evaluation: 12/03/2024 ED Provider: Rancho Diamond PA-C CHIEF COMPLAINT Chief Complaint Patient presents with Seizures [facility] transfer. Pt from [facility] SNF for 38 minute witnessed seizure this morning. Vomiting during seizure, pt on 4L NC, room air @ baseline. Hx SZ, pt states her last one was 5 months ago. Given depakote 500 mg @ 1228, 4 mg zofran @ 1228, and dilantin 1500 mg @ 1350. A&O x 2 with garbled speech at baseline. HISTORY OF PRESENT ILLNESS (Location/Symptom, Timing/Onset, Context/Setting, Quality, Duration, Modifying Factors, Severity) Note limiting factors. I wore appropriate PPE for the entirety of this encounter. HPI Katheryn Chino is a 79 y.o. female with a history of seizure disorder, developmental delay, hypertension who presents to the emergency department for concerns for breakthrough seizure at nursing facility that lasted 38 minutes. History is fairly limited due due to patient's developmental delay. Apparently she had a seizure that was prolonged for 38 minutes at her nursing facility today. She did vomit with the seizure. They did take her to [facility] where she was supposedly observed there and is unsure if they got any workup and was transferred here which is unclear why. Did speak with patient's brother over the phone who states her medications were recently be changed over the last week or so regarding her seizure medications and she has been well-controlled for the last several years. Patient denies any chest pain or shortness of breath. Does have some abdominal pain. Denies any headache, neck pain, vision changes or speech changes. Nursing Notes were reviewed. Limitations to history: Developmental delay Outside historians: EMS REVIEW OF SYSTEMS Review of Systems Please see HPI for pertinent positives and negatives. All other systems reviewed and negative PAST MEDICAL HISTORY Past Medical History: Diagnosis Date Allergic rhinitis Dependent edema 01/27/2020 Essential hypertension 01/27/2020 Hypothyroidism 01/27/2020 Mental deficiency 01/27/2020 Peptic ulcer disease 01/27/2020 Seizure disorder (CMS/HCC) 01/27/2020 SURGICAL HISTORY No past surgical history on file. CURRENT MEDICATIONS Previous Medications No medications on file ALLERGIES Patient has no known allergies. FAMILY HISTORY No family history on file. SOCIAL HISTORY Social History Socioeconomic History Marital status: Single Tobacco Use Smoking status: Never Smokeless tobacco: Never Substance and Sexual Activity Alcohol use: No Drug use: No Social Drivers of Health Food Insecurity: No Food Insecurity (08/18/2024) Received from [facility] Hunger Vital Sign Worried About Running Out of Food in the Last Year: Never true Ran Out of Food in the Last Year: Never true Transportation Needs: No Transportation Needs (08/18/2024) Received from [facility] PRAPARE - Transportation Lack of Transportation (Medical): No Lack of Transportation (Non-Medical): No Housing Stability: Low Risk (08/18/2024) Received from [facility] Housing Stability Vital Sign Unable to Pay for Housing in the Last Year: No Number of Times Moved in the Last Year: 0 Homeless in the Last Year: No SCREENINGS [place] Coma Scale Best Eye Response: Spontaneous Best Verbal Response: Confused Best Motor Response: Follows commands Tiny Coma Scale Score: 14 PHYSICAL EXAM ED Triage Vitals [12/03/24 1839] Temp Heart Rate Resp BP (!) 38.8 C (101.8 F) 98 18 121/60 SpO2 Temp Source Heart Rate Source Patient Position 97 % Oral -- -- BP Location FiO2 (%) -- -- Physical Exam GENERAL APPEARANCE: NAD, no cyanosis, pallor, or diaphoresis. EYES: lids/conjunctiva normal. Pupils equal round react to light. Extraocular movement intact. EARS/NOSE/THROAT: Mucous membranes dry, nares normal, lips/teeth normal uvula midline without oral pharyngeal erythema, exudate or swelling TMs normal bilaterally. No lymphangitis/lymphedema. HEAD/NECK: normocephalic atraumatic, no facial trauma, neck is supple. No midline cervical tenderness. RESPIRATORY: Patient is on her baseline 4 L breathing comfortably room air. Respiratory effort normal, speaks in full sentences, no tripod position, no accessory muscle use. Lungs clear to auscultation without rhonchi, wheezes, rales CARDIAC: Regular rate and rhythm, no murmurs gallops or rubs. ABDOMINAL: Abdomen soft and nondistended. Patient did have some slight abdominal tenderness on exam. No evidence of fluid wave. No pulsatile masses on exam, rebound tenderness, Coyle sign or pain over Mcburney's point. MUSCLES/EXTREMITIES: No abnormal range of motion, no swelling. SKIN: Warm, pink and dry. No rashes, dermatoses, petechiae or lesions. NEUROLOGICAL: Awake alert and oriented to person and place but not time which is baseline for her. Cranial nerves II through XII are grossly intact. Normal finger-nose and llpm-pi-skxy. Speech is clear and appropriate. Normal level of consciousness. Gait and coordination are normal. 5/5 strength in all extremities. DIAGNOSTIC RESULTS Procedures/EKG: EKG was reviewed by myself. Physician EKG interpretation can be found in [facility] RADIOLOGY (Per Emergency Physician): CT of the abdomen pelvis does show gallstones and possible cystitis but no evidence of an acute abdomen. Chest x-ray is clear with no evidence of pneumonia Interpretation per the Radiologist below, if available at the time of this note: CT abdomen pelvis w contrast Final Result 1. Possible cystitis, correlate with urinalysis. 2. Gallstones. Report Dictated on Electronically Signed By: Wilber Christianson MD Electronically Signed Date/Time: 12/03/2024 9:33 PM EST XR chest 1 view Final Result No radiographic evidence of acute cardiopulmonary process. Report Dictated on Electronically Signed By: Micah Adler MD Electronically Signed Date/Time: 12/03/2024 8:07 PM EST ED BEDSIDE ULTRASOUND: Performed by ED Physician - none LABS: Labs Reviewed CBC WITH AUTO DIFFERENTIAL - Abnormal Result Value Auto WBC 10.9 (*) RBC 4.12 Hemoglobin 11.6 (*) Hematocrit 36.9 MCV 89.6 MCH 28.2 MCHC 31.4 RDW 13.2 Platelets 202 MPV 11.7 nRBC 0.0 Neutrophils Relative 87.7 (*) Lymphocytes Relative 5.8 (*) Monocytes Relative 5.9 Eosinophils Relative 0.0 Basophils Relative 0.1 Immature Grans % 0.5 Neutrophils Absolute 9.6 (*) Lymphocytes Absolute 0.6 (*) Monocytes Absolute 0.6 Eosinophils Absolute 0.0 Basophils Absolute 0.0 Immature Grans Absolute 0.1 (*) COMPREHENSIVE METABOLIC PANEL - Abnormal SODIUM 141 POTASSIUM 4.1 CHLORIDE 109 (*) CARBON DIOXIDE 22 (*) ANION GAP 10 UREA NITROGEN 23 CREATININE 0.82 GLUCOSE 112 CALCIUM 8.5 (*) AST (SGOT) 31 ALT 14 ALKALINE PHOSPHATASE 90 ALBUMIN 3.5 BILIRUBIN, TOTAL 0.5 TOTAL PROTEIN 7.1 eGFR 73.8 COMPLETE URINALYSIS - Abnormal Color, Urine Yellow Clarity, Urine Extra Turbid (*) pH, Urine 6.0 Leukocytes, Urine 500 (*) Nitrite, Urine Negative Protein, Urine 100 (*) Glucose, Urine Normal Bilirubin, Urine Negative Ketones, Urine Trace (*) Urobilinogen, Urine Normal Blood, Urine 0.06 (*) RBC, Urine 11-25 (*) WBC, Urine >100 (*) Squamous Epithelial, Urine 11-25 (*) Non-Squamous Epithalial Cells, Urine 3-5 (*) Bacteria, Urine Loaded (*) Mucus, Urine Few Hyaline Casts, Urine Negative WBC Clumps, Urine Many (*) SPECIFIC GRAVITY OF URINE (NUMERIC) >1.030 (*) SARS-COV-2, FLU A/B, AND RSV COMBO - Normal SARS-CoV-2 Not Detected Respiratory Syncytial Virus Not Detected Influenza A Not Detected Influenza B Not Detected Narrative: Methodology: real-time, RT-PCR LACTIC ACID WITH REFLEX - Normal LACTIC ACID 1.6 PHENYTOIN TOTAL - Normal PHENYTOIN, TOTAL 14.1 Narrative: Toxicity seen at concentrations >20.0 ug/mL BLOOD CULTURE BLOOD CULTURE URINE CULTURE COMPLETE URINALYSIS WITH REFLEX TO CULTURE Narrative: The following orders were created for panel order Urinalysis Complete with reflex to Culture. Procedure Abnormality Status --------- ------ Complete Urinalysis[[id number]] Abnormal Final result Please view results for these tests on the individual orders. All other labs were within normal range or not returned as of this dictation. EMERGENCY DEPARTMENT COURSE and DIFFERENTIAL DIAGNOSIS/MDM: Vitals: Vitals: 12/03/24 1839 12/03/24 1942 12/03/244 12/03/24 2210 BP: 121/60 100/52 117/66 Pulse: 98 93 88 Resp: 18 18 24 Temp: (!) 38.8 C (101.8 F) TempSrc: Oral SpO2: 97% 95% 96% Weight: 81.6 kg (179 lb 14.3 oz) Height: 1.6 m (5' 3") ED care was supervised by Dr. Hennessy who independently examined and evaluated the patient. Please see their attestation note for further details. In brief, Katheryn Chino is a 79 y.o. female who presented to the emergency department for concerns of a prolonged seizure that happened at her nursing facility earlier today. Supposedly lasted for for over 30 minutes. Her medication was recently adjusted per brother. Patient is not postictal currently is at baseline neurologically intact. Did have some slight abdominal tenderness but no guarding or rigidity. Patient was febrile but other vital signs were stable. Differential diagnosis included breakthrough seizure, metabolic derangement, infectious etiology, cardiac arrhythmia, dehydration. Lab workup results: CBC does show slight increased white count 10.9 with left shift. CMP is without significant metabolic derangement or ANKUR or transaminitis. Lactic acid level was normal. Viral panel is negative for COVID flu RSV. UA did show loaded bacteria with many white blood cell clumps and over [address] of the abdomen pelvis does show gallstones and possible cystitis but no evidence of an acute abdomen. Chest x-ray is clear with no evidence of pneumonia Upon reassessment of the patient, is lying in bed comfortably no acute distress. She is asking for food and wants to eat. Patient would meet SIRS criteria with heart rate over 90 and temperature of 101.8. Patient does have obvious source of infection of urinary tract infection. CT does not show any evidence of an acute abdomen. Patient is not have a lactic acidosis and no evidence of severe sepsis or septic shock. No significant metabolic derangement or dehydration. No evidence of pneumonia. Patient has not had any seizure activity here and is remained neurologically intact and at baseline. Did discuss admission with patient at bedside and with brother over the phone who are both agreeable with her being admitted. I spoke with [facility] hospitalist who accept the patient for admission. She was given a dose of Rocephin here in the ED and will be admitted for further treatment and evaluation. Patient was met in stable condition. Medications cefTRIAXone (Rocephin) 1,000 mg in sodium chloride 0.9 % 50 mL IVPB Mini-Bag Plus (1,000 mg IntraVENous New Bag 12/03/24 5296) sodium chloride 0.9 % bolus 1,000 mL (1,000 mL IntraVENous New Bag 12/03/242231) sodium chloride 0.9 % bolus 1,000 mL (0 mL IntraVENous Stopped 12/03/242040) ondansetron (Zofran) injection 4 mg (4 mg IntraVENous Given 12/03/241940) acetaminophen (Tylenol) tablet 650 mg (650 mg Oral Given 12/03/242146) phenytoin (Dilantin) 1,000 mg in sodium chloride 0.9 % 100 mL IVPB (loading dose) (1,000 mg IntraVENous New Bag 12/03/242147) iopamidol (Isovue-370) 76 % injection 75 mL (75 mL IntraVENous Given 12/03/242052) Diagnoses as of 12/03/242258 Sepsis due to urinary tract infection (HCC) Breakthrough seizure (CMS/HCC) (HCC) Fever, unspecified fever cause CONSULTS: None PROCEDURES: Unless otherwise noted below, none Procedures Patients symptoms are consistent with sepsis, severe sepsis, or septic shock (If yes use ".sepsiscoremeasure"): CORE MEASURE DATA SIRS Criteria Sepsis Criteria Severe Sepsis Criteria Septic Shock Criteria Must meet 2: [x] Temperature > 100.4 F (38 C) or < 96.8 F (36 C) [x] HR > 90 [] RR > 20 [] WBC > 12 or < 4 or 10% bands Must be confirmed or suspected to move forward with diagnosis of sepsis. Must select at least one: [x] Bacterial Infection Confirmed or Suspected. [] Viral Infection Confirmed or Suspected. [] No infection present. Patient does not meet criteria for Sepsis. Must meet 1: [] Lactate > 2 or [] Signs of Organ Dysfunction: - SBP < 90 or MAP < 65 - Altered mental status - Creatinine > 2 or increased from baseline - Urine Output < 0.5 ml/kg/hr - Bilirubin > 2 - INR > 1.5 - Platelets < 100,000 - Acute Respiratory Failure as evidenced by new need for NIPPV or mechanical ventilation [x] No criteria met for Severe Sepsis. Must meet 1: [] Lactate = or > 4 or [] SBP < 90 or MAP < 65 for at least two readings in the first hour after fluid bolus administration [x] No criteria met for Septic Shock. No data found. Recent Labs 12/03/241939 WBC 10.9* LACTATE 1.6 CREATININE 0.82 BILITOT 0.5 PLT 202 Sepsis Identified at 2229 hours. Fluid Resuscitation Rational: Patient does not meet criteria for Severe Sepsis or Septic Shock. 30mL/kg bolus not indicated Infection Source: Urinary System Reassessment Exam: Not applicable. Patient does not have Septic Shock. Rancho Diamond PA-C FINAL IMPRESSION 1. Sepsis due to urinary tract infection (HCC) 2. Breakthrough seizure (CMS/HCC) (HCC) 3. Fever, unspecified fever cause DISPOSITION Admit 12/03/2024 10:49:53 PM PATIENT REFERRED TO: No follow-up provider specified. DISCHARGE MEDICATIONS: New Prescriptions No medications on file (Comment: Please note this report has been produced using speech recognition software and may contain errors related to that system including errors in grammar, punctuation, and spelling, as well as words and phrases that may be inappropriate. If there are any questions or concerns please feel free to contact the dictating provider for clarification.) Rancho Diamond PA-C (electronically signed) Emergency Medicine Provider Rancho Diamond PA-C 12/03/24 [id number] Cosigned by Miriam Hennessy DO at 12/04/2024 12:54 AM EST documented in this encounter [facility] 12-03-2024 Physician Emergency department Note Emergency Department Encounter [facility] EMERGENCY DEPT Patient: Katheryn Chino : 1945 Date of Evaluation: 12/03/2024 ED Supervising Physician: Miriam Hennessy DO I personally evaluated Katheryn Chino and made/approved the management plan and take responsibility for the patient management. This will serve as my Supervisory note and shared attestation. I did perform a substantive portion of the visit including all aspects of the Medical Decision Making. I wore appropriate PPE for the entirety of this encounter. In brief, Katheryn Chino female with past medical history significant for seizure disorder, hypertension, hypothyroidism is a 79 y.o. that presents to the emergency department as a transfer from [facility] for breakthrough seizure. Patient reports she has a history of seizures. Reports recently her neurologist decreased her antiepileptic medication. Reports that today she had a seizure. On arrival, patient is complaining of abdominal pain, nausea. Reports she recently had a cough, abdominal pain, and she has been feeling unwell. Focused exam: General: Appears well, nontoxic, no distress HEENT: Pupils equal and round, EOMI Cardiovascular: RRR, no murmurs respiratory: CTAB, no wheeze, no conversational dyspnea gastrointestinal: Soft, nondistended, tender in the epigastric region, no rebound or involuntary guarding Neurological: Alert, moving all extremities spontaneously Brief ED course/MDM: Patient is a 79-year-old female with past medical history significant for seizure presenting to the ED for evaluation of breakthrough seizure Concern for breakthrough seizure in the setting of infectious process as the patient was febrile on arrival. Reports she has basically been feeling unwell, having nausea and abdominal pain. Obtained CT abdomen pelvis, urinalysis, additional labs. Viral panel negative. UA consistent with UTI. Mild leukocytosis at 10.9. CT abdomen pelvis with possible cystitis and gallstones. Patient does not have any tenderness specifically in the right upper quadrant, no transaminitis or elevation in bilirubin or alk phos on CMP, low suspicion for acute cholecystitis. Chest x-ray clear. Will admit the patient for urosepsis, breakthrough seizure. Patient given Rocephin for UTI. Diagnostics interpreted by me: I personally discussed the patient's management with other clinicians: All diagnostic, treatment, and disposition decisions were made by myself in conjunction with the MARIO. For all further details of the patient's emergency department visit, please see their documentation. (Comment: Please note this report has been produced using speech recognition software and may contain errors related to that system including errors in grammar, punctuation, and spelling, as well as words and phrases that may be inappropriate. If there are any questions or concerns please feel free to contact the dictating provider for clarification.) Miriam Hennessy DO Acute Care [facility] Miriam Hennessy DO 12/04/24 0003 [place] Phone: 12-03-2024 Physician Emergency department Note EMERGENCY DEPARTMENT ENCOUNTER Pt Name: Katheryn Chino Birthdate 1945 Date of evaluation: 12/03/2024 ED Provider: Rancho Diamond PA-C CHIEF COMPLAINT Chief Complaint Patient presents with Seizures [facility] transfer. Pt from [facility] SNF for 38 minute witnessed seizure this morning. Vomiting during seizure, pt on 4L NC, room air @ baseline. Hx SZ, pt states her last one was 5 months ago. Given depakote 500 mg @ 1228, 4 mg zofran @ 1228, and dilantin 1500 mg @ 1350. A&O x 2 with garbled speech at baseline. HISTORY OF PRESENT ILLNESS (Location/Symptom, Timing/Onset, Context/Setting, Quality, Duration, Modifying Factors, Severity) Note limiting factors. I wore appropriate PPE for the entirety of this encounter. HPI Katheryn Chino is a 79 y.o. female with a history of seizure disorder, developmental delay, hypertension who presents to the emergency department for concerns for breakthrough seizure at nursing facility that lasted 38 minutes. History is fairly limited due due to patient's developmental delay. Apparently she had a seizure that was prolonged for 38 minutes at her nursing facility today. She did vomit with the seizure. They did take her to [facility] where she was supposedly observed there and is unsure if they got any workup and was transferred here which is unclear why. Did speak with patient's brother over the phone who states her medications were recently be changed over the last week or so regarding her seizure medications and she has been well-controlled for the last several years. Patient denies any chest pain or shortness of breath. Does have some abdominal pain. Denies any headache, neck pain, vision changes or speech changes. Nursing Notes were reviewed. Limitations to history: Developmental delay Outside historians: EMS REVIEW OF SYSTEMS Review of Systems Please see HPI for pertinent positives and negatives. All other systems reviewed and negative PAST MEDICAL HISTORY Past Medical History: Diagnosis Date Allergic rhinitis Dependent edema 01/27/2020 Essential hypertension 01/27/2020 Hypothyroidism 01/27/2020 Mental deficiency 01/27/2020 Peptic ulcer disease 01/27/2020 Seizure disorder (CMS/HCC) 01/27/2020 SURGICAL HISTORY No past surgical history on file. CURRENT MEDICATIONS Previous Medications No medications on file ALLERGIES Patient has no known allergies. FAMILY HISTORY No family history on file. SOCIAL HISTORY Social History Socioeconomic History Marital status: Single Tobacco Use Smoking status: Never Smokeless tobacco: Never Substance and Sexual Activity Alcohol use: No Drug use: No Social Drivers of Health Food Insecurity: No Food Insecurity (08/18/2024) Received from [facility] Hunger Vital Sign Worried About Running Out of Food in the Last Year: Never true Ran Out of Food in the Last Year: Never true Transportation Needs: No Transportation Needs (08/18/2024) Received from [facility] PRAPARE - Transportation Lack of Transportation (Medical): No Lack of Transportation (Non-Medical): No Housing Stability: Low Risk (08/18/2024) Received from [facility] Housing Stability Vital Sign Unable to Pay for Housing in the Last Year: No Number of Times Moved in the Last Year: 0 Homeless in the Last Year: No SCREENINGS Tiny Coma Scale Best Eye Response: Spontaneous Best Verbal Response: Confused Best Motor Response: Follows commands [place] Coma Scale Score: 14 PHYSICAL EXAM ED Triage Vitals [12/03/24 1839] Temp Heart Rate Resp BP (!) 38.8 C (101.8 F) 98 18 121/60 SpO2 Temp Source Heart Rate Source Patient Position 97 % Oral -- -- BP Location FiO2 (%) -- -- Physical Exam GENERAL APPEARANCE: NAD, no cyanosis, pallor, or diaphoresis. EYES: lids/conjunctiva normal. Pupils equal round react to light. Extraocular movement intact. EARS/NOSE/THROAT: Mucous membranes dry, nares normal, lips/teeth normal uvula midline without oral pharyngeal erythema, exudate or swelling TMs normal bilaterally. No lymphangitis/lymphedema. HEAD/NECK: normocephalic atraumatic, no facial trauma, neck is supple. No midline cervical tenderness. RESPIRATORY: Patient is on her baseline 4 L breathing comfortably room air. Respiratory effort normal, speaks in full sentences, no tripod position, no accessory muscle use. Lungs clear to auscultation without rhonchi, wheezes, rales CARDIAC: Regular rate and rhythm, no murmurs gallops or rubs. ABDOMINAL: Abdomen soft and nondistended. Patient did have some slight abdominal tenderness on exam. No evidence of fluid wave. No pulsatile masses on exam, rebound tenderness, Coyle sign or pain over Mcburney's point. MUSCLES/EXTREMITIES: No abnormal range of motion, no swelling. SKIN: Warm, pink and dry. No rashes, dermatoses, petechiae or lesions. NEUROLOGICAL: Awake alert and oriented to person and place but not time which is baseline for her. Cranial nerves II through XII are grossly intact. Normal finger-nose and [id number]. Speech is clear and appropriate. Normal level of consciousness. Gait and coordination are normal. 5/5 strength in all extremities. DIAGNOSTIC RESULTS Procedures/EKG: EKG was reviewed by myself. Physician EKG interpretation can be found in [facility] RADIOLOGY (Per Emergency Physician): CT of the abdomen pelvis does show gallstones and possible cystitis but no evidence of an acute abdomen. Chest x-ray is clear with no evidence of pneumonia Interpretation per the Radiologist below, if available at the time of this note: CT abdomen pelvis w contrast Final Result 1. Possible cystitis, correlate with urinalysis. 2. Gallstones. Report Dictated on Electronically Signed By: Wilber Christianson MD Electronically Signed Date/Time: 12/03/2024 9:33 PM EST XR chest 1 view Final Result No radiographic evidence of acute cardiopulmonary process. Report Dictated on Electronically Signed By: Micah Adler MD Electronically Signed Date/Time: 12/03/2024 8:07 PM EST ED BEDSIDE ULTRASOUND: Performed by ED Physician - none LABS: Labs Reviewed CBC WITH AUTO DIFFERENTIAL - Abnormal Result Value Auto WBC 10.9 (*) RBC 4.12 Hemoglobin 11.6 (*) Hematocrit 36.9 MCV 89.6 MCH 28.2 MCHC 31.4 RDW 13.2 Platelets 202 MPV 11.7 nRBC 0.0 Neutrophils Relative 87.7 (*) Lymphocytes Relative 5.8 (*) Monocytes Relative 5.9 Eosinophils Relative 0.0 Basophils Relative 0.1 Immature Grans % 0.5 Neutrophils Absolute 9.6 (*) Lymphocytes Absolute 0.6 (*) Monocytes Absolute 0.6 Eosinophils Absolute 0.0 Basophils Absolute 0.0 Immature Grans Absolute 0.1 (*) COMPREHENSIVE METABOLIC PANEL - Abnormal SODIUM 141 POTASSIUM 4.1 CHLORIDE 109 (*) CARBON DIOXIDE 22 (*) ANION GAP 10 UREA NITROGEN 23 CREATININE 0.82 GLUCOSE 112 CALCIUM 8.5 (*) AST (SGOT) 31 ALT 14 ALKALINE PHOSPHATASE 90 ALBUMIN 3.5 BILIRUBIN, TOTAL 0.5 TOTAL PROTEIN 7.1 eGFR 73.8 COMPLETE URINALYSIS - Abnormal Color, Urine Yellow Clarity, Urine Extra Turbid (*) pH, Urine 6.0 Leukocytes, Urine 500 (*) Nitrite, Urine Negative Protein, Urine 100 (*) Glucose, Urine Normal Bilirubin, Urine Negative Ketones, Urine Trace (*) Urobilinogen, Urine Normal Blood, Urine 0.06 (*) RBC, Urine 11-25 (*) WBC, Urine >100 (*) Squamous Epithelial, Urine 11-25 (*) Non-Squamous Epithalial Cells, Urine 3-5 (*) Bacteria, Urine Loaded (*) Mucus, Urine Few Hyaline Casts, Urine Negative WBC Clumps, Urine Many (*) SPECIFIC GRAVITY OF URINE (NUMERIC) >1.030 (*) SARS-COV-2, FLU A/B, AND RSV COMBO - Normal SARS-CoV-2 Not Detected Respiratory Syncytial Virus Not Detected Influenza A Not Detected Influenza B Not Detected Narrative: Methodology: real-time, RT-PCR LACTIC ACID WITH REFLEX - Normal LACTIC ACID 1.6 PHENYTOIN TOTAL - Normal PHENYTOIN, TOTAL 14.1 Narrative: Toxicity seen at concentrations >20.0 ug/mL BLOOD CULTURE BLOOD CULTURE URINE CULTURE COMPLETE URINALYSIS WITH REFLEX TO CULTURE Narrative: The following orders were created for panel order Urinalysis Complete with reflex to Culture. Procedure Abnormality Status --------- ------ Complete Urinalysis[[id number]] Abnormal Final result Please view results for these tests on the individual orders. All other labs were within normal range or not returned as of this dictation. EMERGENCY DEPARTMENT COURSE and DIFFERENTIAL DIAGNOSIS/MDM: Vitals: Vitals: 12/03/24 1839 12/03/24 1942 12/03/24 2024 12/03/24 2210 BP: 121/60 100/52 117/66 Pulse: 98 93 88 Resp: 18 18 24 Temp: (!) 38.8 C (101.8 F) TempSrc: Oral SpO2: 97% 95% 96% Weight: 81.6 kg (179 lb 14.3 oz) Height: 1.6 m (5' 3") ED care was supervised by Dr. Hennessy who independently examined and evaluated the patient. Please see their attestation note for further details. In brief, Katheryn Chino is a 79 y.o. female who presented to the emergency department for concerns of a prolonged seizure that happened at her nursing facility earlier today. Supposedly lasted for for over 30 minutes. Her medication was recently adjusted per brother. Patient is not postictal currently is at baseline neurologically intact. Did have some slight abdominal tenderness but no guarding or rigidity. Patient was febrile but other vital signs were stable. Differential diagnosis included breakthrough seizure, metabolic derangement, infectious etiology, cardiac arrhythmia, dehydration. Lab workup results: CBC does show slight increased white count 10.9 with left shift. CMP is without significant metabolic derangement or ANKUR or transaminitis. Lactic acid level was normal. Viral panel is negative for COVID flu RSV. UA did show loaded bacteria with many white blood cell clumps and over [address] of the abdomen pelvis does show gallstones and possible cystitis but no evidence of an acute abdomen. Chest x-ray is clear with no evidence of pneumonia Upon reassessment of the patient, is lying in bed comfortably no acute distress. She is asking for food and wants to eat. Patient would meet SIRS criteria with heart rate over 90 and temperature of 101.8. Patient does have obvious source of infection of urinary tract infection. CT does not show any evidence of an acute abdomen. Patient is not have a lactic acidosis and no evidence of severe sepsis or septic shock. No significant metabolic derangement or dehydration. No evidence of pneumonia. Patient has not had any seizure activity here and is remained neurologically intact and at baseline. Did discuss admission with patient at bedside and with brother over the phone who are both agreeable with her being admitted. I spoke with [facility] hospitalist who accept the patient for admission. She was given a dose of Rocephin here in the ED and will be admitted for further treatment and evaluation. Patient was met in stable condition. Medications cefTRIAXone (Rocephin) 1,000 mg in sodium chloride 0.9 % 50 mL IVPB Mini-Bag Plus (1,000 mg IntraVENous New Bag 12/03/242232) sodium chloride 0.9 % bolus 1,000 mL (1,000 mL IntraVENous New Bag 12/03/242231) sodium chloride 0.9 % bolus 1,000 mL (0 mL IntraVENous Stopped 12/03/242040) ondansetron (Zofran) injection 4 mg (4 mg IntraVENous Given 12/03/241940) acetaminophen (Tylenol) tablet 650 mg (650 mg Oral Given 12/03/242146) phenytoin (Dilantin) 1,000 mg in sodium chloride 0.9 % 100 mL IVPB (loading dose) (1,000 mg IntraVENous New Bag 12/03/242147) iopamidol (Isovue-370) 76 % injection 75 mL (75 mL IntraVENous Given 12/03/242052) Diagnoses as of 12/03/242258 Sepsis due to urinary tract infection (HCC) Breakthrough seizure (CMS/HCC) (HCC) Fever, unspecified fever cause CONSULTS: None PROCEDURES: Unless otherwise noted below, none Procedures Patients symptoms are consistent with sepsis, severe sepsis, or septic shock (If yes use ".sepsiscoremeasure"): CORE MEASURE DATA SIRS Criteria Sepsis Criteria Severe Sepsis Criteria Septic Shock Criteria Must meet 2: [x] Temperature > 100.4 F (38 C) or < 96.8 F (36 C) [x] HR > 90 [] RR > 20 [] WBC > 12 or < 4 or 10% bands Must be confirmed or suspected to move forward with diagnosis of sepsis. Must select at least one: [x] Bacterial Infection Confirmed or Suspected. [] Viral Infection Confirmed or Suspected. [] No infection present. Patient does not meet criteria for Sepsis. Must meet 1: [] Lactate > 2 or [] Signs of Organ Dysfunction: - SBP < 90 or MAP < 65 - Altered mental status - Creatinine > 2 or increased from baseline - Urine Output < 0.5 ml/kg/hr - Bilirubin > 2 - INR > 1.5 - Platelets < 100,000 - Acute Respiratory Failure as evidenced by new need for NIPPV or mechanical ventilation [x] No criteria met for Severe Sepsis. Must meet 1: [] Lactate = or > 4 or [] SBP < 90 or MAP < 65 for at least two readings in the first hour after fluid bolus administration [x] No criteria met for Septic Shock. No data found. Recent Labs 12/03/241939 WBC 10.9* LACTATE 1.6 CREATININE 0.82 BILITOT 0.5 PLT 202 Sepsis Identified at 2229 hours. Fluid Resuscitation Rational: Patient does not meet criteria for Severe Sepsis or Septic Shock. 30mL/kg bolus not indicated Infection Source: Urinary System Reassessment Exam: Not applicable. Patient does not have Septic Shock. Rancho Diamond PA-C FINAL IMPRESSION 1. Sepsis due to urinary tract infection (HCC) 2. Breakthrough seizure (CMS/HCC) (HCC) 3. Fever, unspecified fever cause DISPOSITION Admit 12/03/2024 10:49:53 PM PATIENT REFERRED TO: No follow-up provider specified. DISCHARGE MEDICATIONS: New Prescriptions No medications on file (Comment: Please note this report has been produced using speech recognition software and may contain errors related to that system including errors in grammar, punctuation, and spelling, as well as words and phrases that may be inappropriate. If there are any questions or concerns please feel free to contact the dictating provider for clarification.) Rancho Diamond PA-C (electronically signed) Emergency Medicine Provider Rancho Diamond PA-C 12/03/24 5068 Cosigned by Miriam Hennessy DO at 12/04/2024 12:54 AM EST [facility] 12-03-2024 Telephone encounter Note If no clear triggers will likely need to adjust doses. Would consider further increasing LCM to 150 mg BID Artis Hamilton APRN.MACHINED PARTS QUALITY INSPECTOR [facility] 12-03-2024 Telephone encounter Note Seizure Call - spoke with nurse Inman. [facility] PH: [phone] FAX : [phone] Last Visit: 09/24/24 Next Visit: 01/15/25 Date and Time of seizure: 12/03, 10:05am Seizure description: altered awareness, stiffened up. Duration: 33 minutes. Reported the seizure ended at 10:38am Witnessed: by caregiver Aura: Last Seizure: 11/07/24 TB: Unsure but the patients tongue was sticking out of her mouth UI: At her baseline she is incontinent Rescue Medication used: yes, x2 doses of Nayzilam nasal spray. First dose given around 5 minutes after seizure was seen by the nurse. 2nd dose was given 10 minutes after while they were waiting for EMS to arrive. ASM: VPA 250mg TID LCM 100/100 Ethosuximide 250/250 PHT - no longer taking as per plan Triggers: Unsure. No missed ASM doses. Per Dagmar, she did have emesis and diarrhea last night. No other symptoms of illeness. Back to [place]: no Other: patient was taken to local ED, [facility]. The patient will be transferred to another hospital that has neurology team when a bed is available. ==== Per 11/10/24 phone encounter Script for Nayzilam sent. Would consider starting Vimpat with goal of weaning off PHT since she reaches goal dose. If they are in agreement can provide titration. Wk 1: LCM 50 mg at bedtime/ PHT 100 mg BID Wk 2: LCM 50 mg bid Wk 3: LCM 50/100, decrease PHT to 100 mg QHS Wk 4: LCM 100/100, stop PHT Titration plan was faxed to the patient's facility, verbal given to nurse as well. ==== Informed nursing to call our office with an update once the patient is discharged from the hospital. Forwarded to MARIO 2 pool Silvia Rogers RN [facility] 12-03-2024 Telephone encounter Note Received patients seizure monitoring sheet from [facility]. Uploaded to [facility] 12-02-2024 Telephone encounter Note Spoke with nurse Rosita from patient's facility. Informed her of message per Dr. Jimenez with read back. Informed her rheumatology consult was faxed along with DEXA scan report. Consult and DEXA report faxed via [employer] to: [facility] PH: [phone] FAX : [phone] Confirmation received. Silvia Rogers RN [facility] 12-02-2024 Miscellaneous Notes Spoke with nurse Rosita from patient's facility. Informed her of message per Dr. Jimenez with read back. Informed her rheumatology consult was faxed along with DEXA scan report. Consult and DEXA report faxed via [employer] to: [facility] PH: [phone] FAX : [phone] Confirmation received. Silvia Rogers RN Per Dr. Jimenez, This patient's bone scan showed osteoporosis. I placed a consult to Rheumatology to manage this. Can you please let the patient know. Thanks KMG ==== Silvia Rogers RN documented in this encounter [facility] 12-01-2024 Telephone encounter Note Per Dr. Jimenez, This patient's bone scan showed osteoporosis. I placed a consult to Rheumatology to manage this. Can you please let the patient know. Thanks KMG ==== Silvia Rogers RN [facility] 12-01-2024 Telephone encounter Note Provider referred patient to rheumatology. I placed into protal under ref# [id number] [facility] Work Phone: 12-01-2024 Miscellaneous Notes Provider referred patient to rheumatology. I placed into protal under ref# [id number] documented in this encounter [facility] 11-26-2024 History of Present illness Narrative Radiology Service Progress Note PATIENT NAME: Katheryn Chino DATE OF SERVICE: November 26, 2024 TIME: 11:04 AM PATIENT IDENTITY VERIFICATION COMPLETED USING TWO (2) IDENTIFIERS: Name and Date of confirmed by patient verbally. FALL SCREENING: Has the patient had 2 falls in the last year or 1 fall with injury or currently using an Ambulatory Assistive Device (Walker, Cane, Wheelchair, Crutches, etc.)? Yes, Patient High Risk for Falls What interventions were put in place to prevent falls during this visit? Offered Assistance with Transfers/Clothing and Increased Observations by Caregivers PATIENT GENDER DATA: Assigned female at . status: : No status: NO. PATIENT RELEVANT IMPLANT DATA REVIEWED: Not Applicable PATIENT PRESENTS WITH AN IMPLANTABLE OR ATTACHED BRINE PROCESS OPERATOR: No RADIOLOGY DEPARTMENT: Bone Density PERIPHERAL IV DATA: Not applicable SIGNED BY: KENDAL Cruz) November 26, 2024 11:04 AM documented in this encounter [facility] 11-26-2024 Note HNO ID: [id number] Author: KATIA HOWARD RT (R) Service: Radiology Author Type: Technologist Type: Progress Notes Filed: 11/26/2024 11:05 Note Text: Radiology Service Progress Note PATIENT NAME: Katheryn Chino DATE OF SERVICE: November 26, 2024 TIME: 11:04 AM PATIENT IDENTITY VERIFICATION COMPLETED USING TWO (2) IDENTIFIERS: Name and Date of confirmed by patient verbally. FALL SCREENING: Has the patient had 2 falls in the last year or 1 fall with injury or currently using an Ambulatory Assistive Device (Walker, Cane, Wheelchair, Crutches, etc.)? Yes, Patient High Risk for Falls What interventions were put in place to prevent falls during this visit? Offered Assistance with Transfers/Clothing and Increased Observations by Caregivers PATIENT GENDER DATA: Assigned female at . status: : No status: NO. PATIENT RELEVANT IMPLANT DATA REVIEWED: Not Applicable PATIENT PRESENTS WITH AN IMPLANTABLE OR ATTACHED BRINE PROCESS OPERATOR: No RADIOLOGY DEPARTMENT: Bone Density PERIPHERAL IV DATA: Not applicable SIGNED BY: RT Nancy(R) November 26, 2024 11:04 AM [facility] 11-11-2024 Telephone encounter Note The following approved medication requests have been transmitted electronically. Requested Prescriptions Signed Prescriptions Disp Refills lacosamide (VIMPAT) 50 mg tab 42 tablet 0 Sig: Take 1 tablet by mouth daily at bedtime for 7 days, THEN 1 tablet two times a day for 7 days. THEN 1 tablet in the morning and 2 tablets at night for 7 days. Then switch to the 100 mg tablet.. Authorizing Provider: ARTIS HAMILTON lacosamide (VIMPAT) 100 mg tab 180 tablet 1 Sig: Take 1 tablet by mouth two times a day for 180 days. Authorizing Provider: ARTIS HAMILTON midazolam (NAYZILAM) 5 mg/spray (0.1 mL) nasal spray 2 Each 0 Sig: Use 1 [place] in the nose as needed for seizures lasting longer than 3 minutes for up to 90 days. May repeat dose in alternate nostril after 10 minutes based on response and tolerability. Authorizing Provider: ARTIS HAMILTON APRN.MACHINED PARTS QUALITY INSPECTOR [facility] 11-11-2024 Miscellaneous Notes The following approved medication requests have been transmitted electronically. Requested Prescriptions Signed Prescriptions Disp Refills lacosamide (VIMPAT) 50 mg tab 42 tablet 0 Sig: Take 1 tablet by mouth daily at bedtime for 7 days, THEN 1 tablet two times a day for 7 days. THEN 1 tablet in the morning and 2 tablets at night for 7 days. Then switch to the 100 mg tablet.. Authorizing Provider: ARTIS HAMILTON lacosamide (VIMPAT) 100 mg tab 180 tablet 1 Sig: Take 1 tablet by mouth two times a day for 180 days. Authorizing Provider: ARTIS HAMILTON midazolam (NAYZILAM) 5 mg/spray (0.1 mL) nasal spray 2 Each 0 Sig: Use 1 [place] in the nose as needed for seizures lasting longer than 3 minutes for up to 90 days. May repeat dose in alternate nostril after 10 minutes based on response and tolerability. Authorizing Provider: ARTIS HAMILTON APRN.DWAYNE Prescription request for alternate pharmacy. Prescriptions sent to incorrect pharamcy / Please re-send to [facility] for all 3 medications Prescription Refill: Requested by: Rosita @ [facility] Please E-Scribe Caller Contact Number: [phone] Pharmacy Name: [place], [place] Pharmacy Number: [phone] Generic/ brand: generic 30 or 90 day supply requested: 90 Last appointment: 09/24/2024 Next Appointment: none Patient of Dr. Erin Chino [id number] [place] [id number] documented in this encounter [facility] 11-11-2024 Telephone encounter Note Prescription request for alternate pharmacy. Prescriptions sent to incorrect pharamcy / Please re-send to [facility] for all 3 medications Prescription Refill: Requested by: Rosita @ [facility] Please E-Scribe Caller Contact Number: [phone] Pharmacy Name: [place], [place] Pharmacy Number: [phone] Generic/ brand: generic 30 or 90 day supply requested: 90 Last appointment: 09/24/2024 Next Appointment: none Patient of Dr. Erin Chino [id number] [place] [id number] [facility] 11-11-2024 Telephone encounter Note Noted. Spoke with nurse Obando, recommendations provided per MARIO. Letter, copies of LCM, Nayzilam spray faxed to facility. See 11/10/24 phone encounter. Silvia Rogers RN [facility] 11-11-2024 Miscellaneous Notes Noted. Spoke with nurse Gisella, recommendations provided per MARIO. Letter, copies of LCM, Nayzilam spray faxed to facility. See 11/10/24 phone encounter. Silvia Rogers RN Received Seizure monitoring report from [facility] Uploaded to [facility]. documented in this encounter [facility] 11-11-2024 Telephone encounter Note Received Seizure monitoring report from [facility] [place] Uploaded to [facility]. [facility] 11-11-2024 Telephone encounter Note The following approved medication requests have been transmitted electronically. Requested Prescriptions Signed Prescriptions Disp Refills midazolam (NAYZILAM) 5 mg/spray (0.1 mL) nasal spray 2 Each 0 Sig: Use 1 [place] in the nose as needed for seizures lasting longer than 3 minutes for up to 90 days. May repeat dose in alternate nostril after 10 minutes based on response and tolerability. Authorizing Provider: ARTIS HAMILTON lacosamide (VIMPAT) 50 mg tab 42 tablet 0 Sig: Take 1 tablet by mouth daily at bedtime for 7 days, THEN 1 tablet two times a day for 7 days. THEN 1 tablet in the morning and 2 tablets at night for 7 days. Then switch to the 100 mg tablet.. Authorizing Provider: ARTIS HAMILTON lacosamide (VIMPAT) 100 mg tab 180 tablet 1 Sig: Take 1 tablet by mouth two times a day for 180 days. Authorizing Provider: ARTIS HAMILTON APRN.MACHINED PARTS QUALITY INSPECTOR [facility] 11-11-2024 Miscellaneous Notes The following approved medication requests have been transmitted electronically. Requested Prescriptions Signed Prescriptions Disp Refills midazolam (NAYZILAM) 5 mg/spray (0.1 mL) nasal spray 2 Each 0 Sig: Use 1 [place] in the nose as needed for seizures lasting longer than 3 minutes for up to 90 days. May repeat dose in alternate nostril after 10 minutes based on response and tolerability. Authorizing Provider: ARTIS HAMILTON lacosamide (VIMPAT) 50 mg tab 42 tablet 0 Sig: Take 1 tablet by mouth daily at bedtime for 7 days, THEN 1 tablet two times a day for 7 days. THEN 1 tablet in the morning and 2 tablets at night for 7 days. Then switch to the 100 mg tablet.. Authorizing Provider: ARTIS HAMILTON lacosamide (VIMPAT) 100 mg tab 180 tablet 1 Sig: Take 1 tablet by mouth two times a day for 180 days. Authorizing Provider: ARTIS HAMILTON APRN.MACHINED PARTS QUALITY INSPECTOR Spoke with nurse, Gisella. Informed of recommendations, gave verbal of rx LCM titration, PHT wean with read back. She is requesting copy of rx sent to their facility. Silvia Rogers RN Script for Nayzilam sent. Would consider starting Vimpat with goal of weaning off PHT since she reaches goal dose. If they are in agreement can provide titration. 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 Seizure semiology consists of generalized tonic-clonic seizures as well as absence seizures. Family has not noticed absent seizures in a long time. Most recent G TCS in August 2024 was prolonged. Patient has been on chronic ASM therapy with Dilantin, Depakote and ethosuximide. 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 She has been wheelchair-bound due to gait difficulty. Her exam shows severely dysarthric speech likely reflecting cerebellar dysfunction. 09/24/2024: We discussed the negative effects of long-term Dilantin therapy including worsening cerebellar function, risk of osteoporosis. Patient is wheelchair-bound and lives at a facility with constant supervision with no recent falls. We will keep the discussion open about switching Dilantin at future visits. Medication doses were confirmed with the facility (I spoke to the nurse taking care of the patient) which shows recent decrease in Dilantin and Depakote doses following serum levels. For now, we will recheck medication levels and ammonia levels to evaluate for somnolence. Further dose adjustments to be based on ASM levels. PLAN: Continue Dilantin 100 mg twice daily, Depakote 750 mg 3 times daily, ethosuximide 250 mg twice daily Recheck serum ASM levels and ammonia level DEXA scan for evaluation of osteoporosis due to long-term Dilantin use Follow-up in 3 months Future options: Switch Dilantin to Vimpat, zonisamide. ==== NOW Seizure Call - spoke with Rosita Last Visit: 09/24/2024 Next Visit: Date and Time of seizure: 11/07/24, 7:20am Seizure description: patient's room mate said she was having a seizure, caregiver went into room, the patient was jerking, arms and legs stiffened, foaming at the mouth, patient was diaphoretic, eyes rolled back. Duration: 20 minutes Witnessed: by caregiver Aura: Last Seizure: TB: yes UI: no Rescue Medication used: n/a ASM: Depakote 750 mg TID Dilantin 100 mg BID ethosuximide 250 mg BID Triggers: No missed doses, the flu is going around, she had cough and runny nose, did not progress. Back to [place]: yes Other: Facility provider was notified. Stat blood work, ASM levels, CBC ordered. PHT was 7.9, provider increase to 100mg TID, ordered repeat levels for 11/14. Transfer to ED was also ordered. By the time EMS arrived, seizure was over and family declined. Informed Rosita Harrell should be called if the patient has LOC, SOB or breathing stops, severe seizure, seizure clusters, and seizures that last for more than 2-3 minutes. Rosita verbalized understanding. Typical wait time for EMS to arrive in the area is 20 minutes, [place]. The patient does not have a seizure rescue medication, nurse is requesting. Forwarded to [employer] for review. Silvia Rogers RN Seizure activity: Name of Caller : Dimitri Becker [place] where pt resides Relationship to patient: Caregiver Contact phone number: [phone] Date of seizure: 11/07/24 Duration: 20 minutes Back to Baseline (Yes/No): yes Emergency treatment needed (Yes/No): no Patient of Dr. Jimenez documented in this encounter [facility] 11-10-2024 Telephone encounter Note Spoke with nurseGisella. Informed of recommendations, gave verbal of rx LCM titration, PHT wean with read back. She is requesting copy of rx sent to their facility. Silvia Rogers RN [facility] 11-10-2024 Telephone encounter Note Script for Nayzilam sent. Would consider starting Vimpat with goal of weaning off PHT since she reaches goal dose. If they are in agreement can provide titration. Wk 1: LCM 50 mg at bedtime/ PHT 100 mg BID Wk 2: LCM 50 mg bid Wk 3: LCM 50/10, decrease PHT to 100 mg QHS Wk 4: LCM 100/100, stop PHT Artis Hamilton APRN.MACHIN[employer]S QUALITY INSPECTOR [facility] 11-10-2024 Telephone encounter Note See 11/10/24 phone encounter. Silvia Rogers RN [facility] 11-10-2024 Miscellaneous Notes See 11/10/24 phone encounter. Silvia Rogers RN General call : Full name of person calling: [facility] room Relationship to patient: Phone # : Reason for call: seizure monitoring report Patient of Dr. 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 Seizure semiology consists of generalized tonic-clonic seizures as well as absence seizures. Family has not noticed absent seizures in a long time. Most recent G TCS in August 2024 was prolonged. Patient has been on chronic ASM therapy with Dilantin, Depakote and ethosuximide. 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 She has been wheelchair-bound due to gait difficulty. Her exam shows severely dysarthric speech likely reflecting cerebellar dysfunction. 09/24/2024: We discussed the negative effects of long-term Dilantin therapy including worsening cerebellar function, risk of osteoporosis. Patient is wheelchair-bound and lives at a facility with constant supervision with no recent falls. We will keep the discussion open about switching Dilantin at future visits. Medication doses were confirmed with the facility (I spoke to the nurse taking care of the patient) which shows recent decrease in Dilantin and Depakote doses following serum levels. For now, we will recheck medication levels and ammonia levels to evaluate for somnolence. Further dose adjustments to be based on ASM levels. PLAN: Continue Dilantin 100 mg twice daily, Depakote 750 mg 3 times daily, ethosuximide 250 mg twice daily Recheck serum ASM levels and ammonia level DEXA scan for evaluation of osteoporosis due to long-term Dilantin use Follow-up in 3 months Future options: Switch Dilantin to Vimpat, zonisamide. ==== NOW Seizure Call - spoke with Rosita Last Visit: 09/24/2024 Next Visit: Date and Time of seizure: 11/07/24, 7:20am Seizure description: patient's room mate said she was having a seizure, caregiver went into room, the patient was jerking, arms and legs stiffened, foaming at the mouth, patient was diaphoretic, eyes rolled back. Duration: 20 minutes Witnessed: by caregiver Aura: Last Seizure: TB: yes UI: no Rescue Medication used: n/a ASM: Depakote 750 mg TID Dilantin 100 mg BID ethosuximide 250 mg BID Triggers: No missed doses, the flu is going around, she had cough and runny nose, did not progress. Back to [place]: yes Other: Facility provider was notified. Stat blood work, ASM levels, CBC ordered. PHT was 7.9, provider increase to 100mg TID, ordered repeat levels for 11/14. Transfer to ED was also ordered. By the time EMS arrived, seizure was over and family declined. Informed Rosita BarnettBob should be called if the patient has LOC, SOB or breathing stops, severe seizure, seizure clusters, and seizures that last for more than 2-3 minutes. Rosita verbalized understanding. Typical wait time for EMS to arrive in the area is 20 minutes, [place]. The patient does not have a seizure rescue medication, nurse is requesting. Forwarded to [facility] [employer] for review. Silvia Rogers RN [facility] 11-10-2024 Telephone encounter Note Seizure activity: Name of Caller : Dimitri Becker [place] where pt resides Relationship to patient: Caregiver Contact phone number: [phone] Date of seizure: 11/07/24 Duration: 20 minutes Back to Baseline (Yes/No): yes Emergency treatment needed (Yes/No): no Patient of Dr. Jimenez [facility] 11-07-2024 Telephone encounter Note General call : Full name of person calling: [facility] room Relationship to patient: Phone # : Reason for call: seizure monitoring report Patient of Dr. Jimenez upload [facility] 09-26-2024 Telephone encounter Note Spoke with Taryn, patient's nurse - provided medication recommendations - she verbalizes understanding via teachback Sherrell Bojorquez RN [facility] Work Phone: 09-26-2024 Miscellaneous Notes Spoke with Taryn, patient's nurse - provided medication recommendations - she verbalizes understanding via teachback Sherrell Bojorquez RN Levels reviewed, VPA still mildly elevated- would decrease dose to 500 mg TID. Can continue other doses unchanged Artis Hamilton APRN.CNP Images from the original note were not included. Per patient's nurse, Katia - recent labs are trough No ETH level completed Current ASMs: PHT 100 mg BID VPA 750 mg TID ETH 250 mg BID Forwarded to [facility] [employer] [place] for review/recommendation Sherrell Bojorquez RN Per [facility] of 09/24/2024 w/Dr. Jimenez The doses listed on facility paperwork are different than what was listed on discharge summary at [facility]. Called the facility and confirmed the following doses Dilantin 100 mg twice daily (since 09/24/2024-dose reduced due to minimally elevated serum levels) Depakote 750 mg 3 times daily (since 09/08/2024-dose reduced due to elevated serum levels) Recent Asm levels show VPA elevated at 120 (09/05/2024) and PHT normal on 09/05 and minimally elevated on 09/19/2024. 09/24/2024: We discussed the negative effects of long-term Dilantin therapy including worsening cerebellar function, risk of osteoporosis. Patient is wheelchair-bound and lives at a facility with constant supervision with no recent falls. We will keep the discussion open about switching Dilantin at future visits. Medication doses were confirmed with the facility (I spoke to the nurse taking care of the patient) which shows recent decrease in Dilantin and Depakote doses following serum levels. For now, we will recheck medication levels and ammonia levels to evaluate for somnolence. Further dose adjustments to be based on ASM levels. EPILEPSY CLASSIFICATION Generalized Epilepsy Seizures: 1. Dialeptic Seizure 2. Generalized Tonic-Clonic Seizure Associated Conditions: - Neurological (Cerebellar ataxia) PLAN: Continue Dilantin 100 mg twice daily, Depakote 750 mg 3 times daily, ethosuximide 250 mg twice daily Recheck serum ASM levels and ammonia level DEXA scan for evaluation of osteoporosis due to long-term Dilantin use Follow-up in 3 months Future options: Switch Dilantin to Vimpat, zonisamide. documented in this encounter [facility] 09-26-2024 Telephone encounter Note Levels reviewed, VPA still mildly elevated- would decrease dose to 500 mg TID. Can continue other doses unchanged Artis Hamilton APRN.DWAYNE [facility] 09-26-2024 Telephone encounter Note Images from the original note were not included. Per patient's nurse, Katia - recent labs are trough No ETH level completed Current ASMs: PHT 100 mg BID VPA 750 mg TID ETH 250 mg BID Forwarded to [address] for review/recommendation Sherrell Bojorquez RN Per [facility] of 09/24/2024 w/Dr. Jimenez The doses listed on facility paperwork are different than what was listed on discharge summary at [facility]. Called the facility and confirmed the following doses Dilantin 100 mg twice daily (since 09/24/2024-dose reduced due to minimally elevated serum levels) Depakote 750 mg 3 times daily (since 09/08/2024-dose reduced due to elevated serum levels) Recent Asm levels show VPA elevated at 120 (09/05/2024) and PHT normal on 09/05 and minimally elevated on 09/19/2024. 09/24/2024: We discussed the negative effects of long-term Dilantin therapy including worsening cerebellar function, risk of osteoporosis. Patient is wheelchair-bound and lives at a facility with constant supervision with no recent falls. We will keep the discussion open about switching Dilantin at future visits. Medication doses were confirmed with the facility (I spoke to the nurse taking care of the patient) which shows recent decrease in Dilantin and Depakote doses following serum levels. For now, we will recheck medication levels and ammonia levels to evaluate for somnolence. Further dose adjustments to be based on ASM levels. EPILEPSY CLASSIFICATION Generalized Epilepsy Seizures: 1. Dialeptic Seizure 2. Generalized Tonic-Clonic Seizure Associated Conditions: - Neurological (Cerebellar ataxia) PLAN: Continue Dilantin 100 mg twice daily, Depakote 750 mg 3 times daily, ethosuximide 250 mg twice daily Recheck serum ASM levels and ammonia level DEXA scan for evaluation of osteoporosis due to long-term Dilantin use Follow-up in 3 months Future options: Switch Dilantin to Vimpat, zonisamide. [facility] 09-24-2024 Note HNO ID: [id number] Author: JAYANT JIMENEZ MD Service: ? Author Type: Physician Type: Progress Notes Filed: 09/24/2024 11:19 Note Text: [facility] Patient Name: Katheryn RUBI Date of : 1945 INITIAL EPILEPSY CLINIC NOTE 09/24/2024 8:00 AM CHIEF COMPLAINT: New Patient and Epilepsy HISTORY OF PRESENT ILLNESS Ms. Chino is a 79 year old female seen in [facility] for initial consultation. Handedness: Age of onset: Seizure History and Evolution Siezures began at age 46 year old and there are described as absence and GTC seizures. Started on AEDs and seizures continued to occurred. Brother does not recall previous AEDs. She continued with seizures mainly when she has no compliance with AEDs.Seizures got worse after her menstrual period began at age [age] year old. She alaways lived with her mother who helped her with AEDs, however mother 5 years ago, she started to have no compliance with AEDs . [place] and she has more suervison with AEDs now. The lasteiuzres was over a year ago depsite compliance. Based on SNF forms, she is currently on Dilantin 150 mg daily, Depakote 1000 mg tid and Zarontin 250 mg bid. These levels have been adjusted overtime based on AED levels. 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 She had good seizure control for a few years until covid. Hospitaltization in Aug 2024 for a prolonged GTCS at the facility ( brother reports it lasted ~ 25 mins). Admitted to [facility] where Dilantin and Depakote levels were low. Doses were adjusted- PHT 100 mg TID and VPA 1000 mg TID. Zarontin was continued at 250 mg BID. Interval Seizure History The doses listed on facility paperwork are different than what was listed on discharge summary at [facility]. Called the facility and confirmed the following doses Dilantin 100 mg twice daily (since 09/24/2024-dose reduced due to minimally elevated serum levels) Depakote 750 mg 3 times daily (since 09/08/2024-dose reduced due to elevated serum levels) Recent Asm levels show VPA elevated at 120 (09/05/2024) and PHT normal on 09/05 and minimally elevated on 09/19/2024. Brother reports pt is more tired and somnolent since medication adjustment in the hospital. No new seizures reported. Total # of Current Anti-seizure Medications: Side Effects to Current Anti-seizure Medications: Seizure Frequency at First Visit: Longest Seizure-free Interval: CURRENT OUTPATIENT ANTISEIZURE MEDICATIONS (as of the start of the encounter) phenytoin chewable (DILANTIN) 50 mg tablet (Taking) valproic acid (DEPAKENE) 250 mg/5 mL syrup (Taking) Take 20 mL by mouth three times a day. ethosuximide (ZARONTIN) 250 mg capsule Take 1 capsule by mouth two times a day. phenytoin ER (DILANTIN) 100 mg ER capsule Take 1 capsule by mouth three times a day. Prior Anti-seizure Therapies: Trial Adequacy: Max Daily Dose Achieved: Side Effects: Effectiveness: Comments: Comorbidities: Episode Description: Patient Entered Data: EPILEPSY SCORE No Data PHQ-9 SCORE - ELSA 2 SCORE - ELSA 7 SCORE - QOLIE-10 SCORE (0=worst; 100=best QoL - higher scores represent better function) - LSSS SCORE (0- no seizures 100- most severe possible seizures) - C-SSRS SCREEN - On average, how many hours of sleep do you get in a 24-hour period? - PROMIS Sleep Disturbance T-SCORE - Have you been diagnosed with Sleep Apnea? 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 phenytoin chewable (DILANTIN) 50 mg tablet Take 50 mg by mouth daily at bedtime. potassium chloride (K-TAB) 10 mEq tablet Take 10 mEq by mouth once daily. valproic acid (DEPAKENE) 250 mg/5 mL syrup Take 20 mL by mouth three times a day. furosemide (LASIX) 20 mg tablet Take 1 tablet by mouth every Sunday, Sunday, and Sunday. escitalopram oxalate (LEXAPRO) 20 mg tablet Take 1 tablet by mouth once daily. levothyroxine (SYNTHROID) 50 mcg tablet Take 1 tablet by mouth daily at 6 am. melatonin 3 mg tablet Take 1 tablet by mouth daily at bedtime. fluticasone (FLONASE) 50 mcg/actuation nasal spray senna (SENNA) 8.6 mg tab Take 8.6 mg by mouth twice daily. bisacodyl (DULCOLAX) 10 mg supp 10 mg by RECTAL route once daily as needed. sodium phosphate-sodium bisphosphate (FLEET ENEMA) enema 1 Enema by RECTAL route one time only. Cholecalciferol, Vitamin D3, (VITAMIN D-3) 2,000 unit cap Take by mouth. Alumin (more content not included)... [facility] 09-24-2024 History of Present illness Narrative [facility] Patient Name: Katheryn RUBI Date of : 1945 INITIAL EPILEPSY CLINIC NOTE 09/24/2024 8:00 AM CHIEF COMPLAINT: New Patient and Epilepsy HISTORY OF PRESENT ILLNESS Ms. Chino is a 79 year old female seen in [facility] for initial consultation. Handedness: Age of onset: Seizure History and Evolution Siezures began at age 46 year old and there are described as absence and GTC seizures. Started on AEDs and seizures continued to occurred. Brother does not recall previous AEDs. She continued with seizures mainly when she has no compliance with AEDs.Seizures got worse after her menstrual period began at age [age] year old. She alaways lived with her mother who helped her with AEDs, however mother 5 years ago, she started to have no compliance with AEDs . [place] and she has more suervison with AEDs now. The lasteiuzres was over a year ago depsite compliance. Based on SNF forms, she is currently on Dilantin 150 mg daily, Depakote 1000 mg tid and Zarontin 250 mg bid. These levels have been adjusted overtime based on AED levels. 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 She had good seizure control for a few years until covid. Hospitaltization in Aug 2024 for a prolonged GTCS at the facility ( brother reports it lasted ~ 25 mins). Admitted to [facility] where Dilantin and Depakote levels were low. Doses were adjusted- PHT 100 mg TID and VPA 1000 mg TID. Zarontin was continued at 250 mg BID. Interval Seizure History The doses listed on facility paperwork are different than what was listed on discharge summary at [facility]. Called the facility and confirmed the following doses Dilantin 100 mg twice daily (since 09/24/2024-dose reduced due to minimally elevated serum levels) Depakote 750 mg 3 times daily (since 09/08/2024-dose reduced due to elevated serum levels) Recent Asm levels show VPA elevated at 120 (09/05/2024) and PHT normal on 09/05 and minimally elevated on 09/19/2024. Brother reports pt is more tired and somnolent since medication adjustment in the hospital. No new seizures reported. Total # of Current Anti-seizure Medications: Side Effects to Current Anti-seizure Medications: Seizure Frequency at First Visit: Longest Seizure-free Interval: CURRENT OUTPATIENT ANTISEIZURE MEDICATIONS (as of the start of the encounter) phenytoin chewable (DILANTIN) 50 mg tablet (Taking) valproic acid (DEPAKENE) 250 mg/5 mL syrup (Taking) Take 20 mL by mouth three times a day. ethosuximide (ZARONTIN) 250 mg capsule Take 1 capsule by mouth two times a day. phenytoin ER (DILANTIN) 100 mg ER capsule Take 1 capsule by mouth three times a day. Prior Anti-seizure Therapies: Trial Adequacy: Max Daily Dose Achieved: Side Effects: Effectiveness: Comments: Comorbidities: Episode Description: Patient Entered Data: EPILEPSY SCORE No Data PHQ-9 SCORE - ELSA 2 SCORE - ELSA 7 SCORE - QOLIE-10 SCORE (0=worst; 100=best QoL - higher scores represent better function) - LSSS SCORE (0- no seizures 100- most severe possible seizures) - C-SSRS SCREEN - On average, how many hours of sleep do you get in a 24-hour period? - PROMIS Sleep Disturbance T-SCORE - Have you been diagnosed with Sleep Apnea? 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 phenytoin chewable (DILANTIN) 50 mg tablet Take 50 mg by mouth daily at bedtime. potassium chloride (K-TAB) 10 mEq tablet Take 10 mEq by mouth once daily. valproic acid (DEPAKENE) 250 mg/5 mL syrup Take 20 mL by mouth three times a day. furosemide (LASIX) 20 mg tablet Take 1 tablet by mouth every Sunday, Sunday, and Sunday. escitalopram oxalate (LEXAPRO) 20 mg tablet Take 1 tablet by mouth once daily. levothyroxine (SYNTHROID) 50 mcg tablet Take 1 tablet by mouth daily at 6 am. melatonin 3 mg tablet Take 1 tablet by mouth daily at bedtime. fluticasone (FLONASE) 50 mcg/actuation nasal spray senna (SENNA) 8.6 mg tab Take 8.6 mg by mouth twice daily. bisacodyl (DULCOLAX) 10 mg supp 10 mg by RECTAL route once daily as needed. sodium phosphate-sodium bisphosphate (FLEET ENEMA) enema 1 Enema by RECTAL route one time only. Cholecalciferol, Vitamin D3, (VITAMIN D-3) 2,000 unit cap Take by mouth. Aluminum Hydrox-Magnesium Carb (GAVISCON EXTRA STRENGTH) 254-237.5 mg/5 mL susp Take by mouth. dext 70/polycarbophil/peg/NaCl (ARTIFICIAL TEAR SOLUTION OPHTHALMIC) Use in eyes. loratadine (CLARITIN) 10 mg tablet Take 10 mg by mouth once daily. losartan potassium (LOSARTAN ORAL) Take [address] (PROTONIX) 40 mg tablet Take 40 mg by mouth once daily. acetaminophen (TYLENOL) 325 mg tablet Take 650 mg by mouth every 6 hours as needed. ethosuximide (ZARONTIN) 250 mg capsule Take 1 capsule by mouth two times a day. (Patient not taking: Reported on 09/24/2024) phenytoin ER (DILANTIN) 100 mg ER capsule Take 1 capsule by mouth three times a day. (Patient not taking: Reported on 09/24/2024) montelukast (SINGULAIR) 10 mg tablet (Patient not taking: Reported on 09/24/2024) magnesium hydroxide 2,400 mg/10 mL susp Take 10 mL by mouth once daily as needed. (Patient not taking: Reported on 09/24/2024) Light Mineral Oil-Mineral Oil (SOOTHE XP) 1-4.5 % drop Use in both eyes. (Patient not taking: Reported on 09/24/2024) guaifenesin/dextromethorphan (ROBITUSSIN-DM ORAL) Take by mouth. (Patient not taking: Reported on 09/24/2024) No current facility-administered medications for this visit. ALLERGIES No Known Allergies PAST MEDICAL HISTORY Diagnosis Date High blood pressure Seizures (HCC) PAST SURGICAL HISTORY Procedure Laterality Date COLONOSCOPY 03/31/2009 normal EGD 07/13/2016 abnormal LES,hiatal hernia, esophagitis and gastritis FAMILY HISTORY Problem Relation Age of Onset Breast Cancer Mother SOCIAL HISTORY: -Lives in [place], [place] -Patient lives alone? -Vocation: -Education: -Cigarette, alcohol, substance use: -Functional status: -Patient driving? Review of Systems All other systems reviewed and are negative. VITAL SIGNS: BP 132/81 Pulse 77 Resp 16 Ht 160 cm (5' 3") Wt 81.6 kg (180 lb) BMI 31.89 kg/m General Examination: She is accompanied By her brother. General: Awake, alert, interactive, no acute distress, good nutritional status, normal development, well-kept Neurological Exam Mental Status Alert, fully oriented, attentive. Severe speech dysarthria Cranial Nerves Face symmetric. Hearing intact with conversational speech. Motor Examination and Coordination Motor examination with normal bulk. 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 Seizure semiology consists of generalized tonic-clonic seizures as well as absence seizures. Family has not noticed absent seizures in a long time. Most recent G TCS in August 2024 was prolonged. Patient has been on chronic ASM therapy with Dilantin, Depakote and ethosuximide. 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 She has been wheelchair-bound due to gait difficulty. Her exam shows severely dysarthric speech likely reflecting cerebellar dysfunction. 09/24/2024: We discussed the negative effects of long-term Dilantin therapy including worsening cerebellar function, risk of osteoporosis. Patient is wheelchair-bound and lives at a facility with constant supervision with no recent falls. We will keep the discussion open about switching Dilantin at future visits. Medication doses were confirmed with the facility (I spoke to the nurse taking care of the patient) which shows recent decrease in Dilantin and Depakote doses following serum levels. For now, we will recheck medication levels and ammonia levels to evaluate for somnolence. Further dose adjustments to be based on ASM levels. EPILEPSY CLASSIFICATION Generalized Epilepsy Seizures: 1. Dialeptic Seizure 2. Generalized Tonic-Clonic Seizure Associated Conditions: - Neurological (Cerebellar ataxia) PLAN: Continue Dilantin 100 mg twice daily, Depakote 750 mg 3 times daily, ethosuximide 250 mg twice daily Recheck serum ASM levels and ammonia level DEXA scan for evaluation of osteoporosis due to long-term Dilantin use Follow-up in 3 months Future options: Switch Dilantin to Vimpat, zonisamide. Data reviewed as above including: electronic medical record, outside records Education Seizure precautions - No driving in the state [facility] until seizure free for 6 months. Please check with local state authorities for state specific driving regulations. - No operating heavy machines - No swimming without supervision or bathing in a bathtub due to risk of drowning in the event of a seizure. Patient may shower. - Avoid unsafe heights, including ladders, due to risk of fall-related injury in the event of a seizure. - Seizure precipitating factors discussed including not taking seizure medications as prescribed, stress, excessive caffeine intake, energy drinks, alcohol, sleep deprivation or any identifiable seizure precipitating factor. I discussed the risks, benefits and alternatives of the medical plan with the patient. Questions were answered. The patient agreed with the plan as discussed. FOLLOW-UP: Return in about 3 months (around 12/23/2024). I spent a total of 60 minutes on the date of the service which included: preparing to see the patient [id number] patient care completing clinical documentation obtaining and/or reviewing separately obtained history performing a medically appropriate examination counseling and educating the patient/family/caregiver ordering medications, tests, or procedures Jayant Jimenez MD cc: Primary Care Physician: Orville Mendoza, [address] [phone] Referring: Patient: Ms. Katheryn Chino [id number] [phone] documented in this encounter [facility] 09-24-2024 Instructions Jayant Jimenez MD - 09/24/2024 8:56 AM EST Summary of the things we discussed today: We will check blood level of your seizure medications as well as Ammonia (needs to be done at [facility]) I will order a bone scan called DEXA to see if you have suffered osteoporosis due to [facility] use of seizure medications. Reduce the morning dose of Depakote. I will call your facility to find out the dose that you are on (our records indicate 1000 mg three times a day- the facility records indicate 750 mg three times a day) Consider switching Dilantin to a newer medication. Options include Vimpat (Lacosamide), Zonisamide (Zonegran). Please call my office if you have more seizures or with any seizure related concerns. Seizure precautions - No driving in the [facility] until seizure free for 6 months. Please check with local state authorities for state specific driving regulations. - No operating heavy machines - No swimming without supervision or bathing in a bathtub due to risk of drowning in the event of a seizure. Patient may shower. - Avoid unsafe heights, including ladders, due to risk of fall-related injury in the event of a seizure. - Seizure precipitating factors discussed including not taking seizure medications as prescribed, stress, excessive caffeine intake, energy drinks, alcohol, sleep deprivation or any identifiable seizure precipitating factor. Jayant Jimenez MD Associate Staff, Epilepsy [facility] September 24, 2024 Office phone: [phone] BONE MINERAL DENSITY PATIENT INSTRUCTIONS ======= Bone mineral density testing measures the amount of calcium in certain parts of your bones. This information determines how strong your bones are. The test is used to detect osteoporosis, a disease in which the bone's mineral content and density are low, increasing a person's risk of fractures. The lumbar spine (lower back) and the hip are the skeletal sites usually examined. For the test, remember that: 1. You cannot take this test if you are . 2. Eat a normal diet on the day of the test. 3. Take your medications as you normally would. 4. DO NOT take calcium supplements (such as Tums) for 24 hours before the test. 5. On the day of the test, leave valuables (jewelry or credit cards) at home. 6. The test should be performed prior to oral, rectal or IV contrast studies, or at least 7 days after any of these studies. For the test, you may be asked to wear a hospital gown. You will lie on your back, on a padded table, in a comfortable position. Generally, you can resume your usual activities immediately. documented in this encounter [facility] 09-22-2024 Telephone encounter Note See 09/05/24 phone encounter PHT 21.9 Range 10 - 20 Taking PHT 100 mg BID Silvia Rogers RN [facility] 09-22-2024 Miscellaneous Notes See 09/05/24 phone encounter PHT 21.9 Range 10 - 20 Taking PHT 100 mg BID Silvia Rogers RN OUTSIDE LAB REPORT [facility] PHONE/FAX: [phone] / [phone] COLLECTION DATE AND TIME: 09/19/2024 - 06:15 Uploaded to [facility] documented in this encounter [facility] 09-19-2024 Telephone encounter Note OUTSIDE LAB REPORT [facility] PHONE/FAX: [phone] / [phone] COLLECTION DATE AND TIME: 09/19/2024 - 06:15 Uploaded to [facility] 11-22-2024 Telephone encounter Note Spoke with nurse Renae, [facility] - provided recommendation/she verbalizes understanding. Sherrell Bojorquez RN [facility] Work Phone: 09-05-2024 Miscellaneous Notes Spoke with nurse Renae, [facility] - provided recommendation/she verbalizes understanding. Sherrell Bojorquez RN Pt can continue current doses. Artis Hamilton APRN.MACHINED PARTS QUALITY INSPECTOR Images from the original note were not included. Patient update per nurse Renae, [facility]: - Last known seizure: 08/17/2024 - labs are Not trough - patient received AM doses of ASMs around 4:30 am - no medication concerns/concern for SE Current ASM dosing confirmed with nursing: PHT ER 100 mg @ 8 am/100 mg @ 2 pm 100 mg + 50 mg chew @ 10 PM VPA 1000 mg @ 6 am/1000 mg @ 11 am/1000 mg @ 9 pm ETH 250 mg BID Facility scheduled to repeat labs in 84 days - will schedule as trough NOV: 09/24/2024 w/Dr. Jimenez Forwarded to [address] for review Sherrell Bojorquez RN Per neurology consult 08/17/2024 Plan: -CT head at OSH nothing acute -EEG diffuse moderate slowing -Labs reviewed -Dilantin level was low on admission. Will increase Dilantin to 100 mg TID, check another level as outpatient -Restart Depakote 1000 mg TID which is baseline dose. Depakote level low this admission likely secondary to not starting the medication on admission. -On Ethosuximide 250 mg BID at baseline. Continue the same. -F/U Epilepsy as outpatient. Called [facility] - left message for nursing staff to contact office Sherrell Bojorquez RN Form received: From (agency / facility / parent): [facility] certified personal finance counselor (if given): Brea Malloy RN Phone #: [phone] Fax # : [phone] Email: n/a Information requested: Review Labs Collected 09/05/2024 - 05:30 for Valproic Acid and Dilantin and approval for medication dosages Patient of Dr. Jimenez Forwarded to nurse. Also uploaded to [facility]. documented in this encounter [facility] 09-05-2024 Telephone encounter Note Pt can continue current doses. Artis Hamilton APRN.MACHINED PARTS QUALITY INSPECTOR [facility] Work Phone: 09-05-2024 Telephone encounter Note Images from the original note were not included. Patient update per nurse Renae, [facility]: - Last known seizure: 08/17/2024 - labs are Not trough - patient received AM doses of ASMs around 4:30 am - no medication concerns/concern for SE Current ASM dosing confirmed with nursing: PHT ER 100 mg @ 8 am/100 mg @ 2 pm 100 mg + 50 mg chew @ 10 PM VPA 1000 mg @ 6 am/1000 mg @ 11 am/1000 mg @ 9 pm ETH 250 mg BID Facility scheduled to repeat labs in 84 days - will schedule as trough NOV: 09/24/2024 w/Dr. Jimenez Forwarded to [employer] for review Sherrell Bojorquez RN Per neurology consult 08/17/2024 Plan: -CT head at OSH nothing acute -EEG diffuse moderate slowing -Labs reviewed -Dilantin level was low on admission. Will increase Dilantin to 100 mg TID, check another level as outpatient -Restart Depakote 1000 mg TID which is baseline dose. Depakote level low this admission likely secondary to not starting the medication on admission. -On Ethosuximide 250 mg BID at baseline. Continue the same. -F/U Epilepsy as outpatient. [facility] 09-05-2024 Telephone encounter Note Called [facility] - left message for nursing staff to contact office Sherrell Bojorquez RN [facility] 09-05-2024 Telephone encounter Note Form received: From (agency / facility / parent): [facility] certified personal finance counselor (if given): Brea Malloy RN Phone #: [phone] Fax # : [phone] Email: n/a Information requested: Review Labs Collected 09/05/2024 - 05:30 for Valproic Acid and Dilantin and approval for medication dosages Patient of Dr. Jimneez Forwarded to nurse. Also uploaded to [facility]. [facility] 08-29-2024 Telephone encounter Note Spoke with nurse Kendrick at facility. Informed to continue with current asm dose. Silvia Rogers RN [facility] 08-29-2024 Miscellaneous Notes Spoke with nurse Kendrick at facility. Informed to continue with current asm dose. Silvia Rogers RN Level reviewed - pt should continue current dose Artis Hamilton APRN.MACHINED PARTS QUALITY INSPECTOR Spoke with Mima no further seizures to report and no side effect or medication issues to report. She is doing fine at this time. routed for review Sandra Casey, RN Mima of [facility] returning Nurse call. Please call [phone] VPA: 08/27/2024 at 04:55 104: (? to 100) VAP 1000 mg: TID (was increased from 750 mg during recent hospitalization). Previous level ws 94 on 08/06/2024 ======== 08/17/2024 to 08/20/2024 [facility] ======== was patient of Dr. Pereira's last seen 09/01/[address] Jimenez on 09/24/2024: new consult ========= Call placed to [facility] [phone] Jimenez's number given to call back Sandra Casey RN OUTSIDE LAB REPORT FACILITY NAME [facility] PHONE/FAX COLLECTION DATE AND TIME: 08/26/24 0455 Uploaded to [facility] Pt scheduled for N/C w/ Dr. Jimenez documented in this encounter [facility] 08-29-2024 Telephone encounter Note Level reviewed - pt should continue current dose Artis Hamilton APRN.CNP [facility] Work Phone: 08-29-2024 Telephone encounter Note Spoke with Mima no further seizures to report and no side effect or medication issues to report. She is doing fine at this time. routed for review Sandra Casey RN [facility] 08-29-2024 Telephone encounter Note Mima of [facility] returning Nurse call. Please call [phone] [facility] 08-28-2024 Telephone encounter Note VPA: 08/27/2024 at 04:55 104: (? to 100) VAP 1000 mg: TID (was increased from 750 mg during recent hospitalization). Previous level ws 94 on 08/06/2024 ======== 08/17/2024 to 08/20/2024 [facility] ======== was patient of Dr. Pereira's last seen 09/01/[address] Jimenez on 09/24/2024: new consult ========= Call placed to [facility] [phone] Jimenez's number given to call back Sandra Casey RN [facility] 08-27-2024 Telephone encounter Note OUTSIDE LAB REPORT FACILITY NAME [facility] PHONE/FAX COLLECTION DATE AND TIME: 08/26/24 0455 Uploaded to [facility] Pt scheduled for N/C w/ Dr. Jimenez [facility] 08-20-2024 Note HNO ID: [id number] Author: NO BENNETT RPh Service: Pharmacy Author Type: Pharmacist Type: Plan of Care Filed: 08/20/2024 11:40 Note Text: DISCHARGE MEDICATION REVIEW BY PHARMACY Patient Name: Katheryn Chino Account #: Data Unavailable Admission Date: 08/17/2024 Date of Contact: August 20, 2024 Time of Contact: 11:36 AM Medication list was reviewed by a Pharmacist for drug interactions or drug related problems:Yes Below is a summary of pharmacist recommendations discussed with LIP: No recommendations at this time from discharge medication list. Pt to be discharged back to [facility], AEDs adjusted as recommended per neurology: -Phenytoin 100 mg TID -Valproic acid 1000 mg TID -Ethosuximide 250 mg BID No additional recommendations. No Bennett [facility] Pager: [phone] 08/20/2024 11:36 AM Medication List START taking these medications escitalopram oxalate 20 mg tablet Commonly known as: LEXAPRO Take 1 tablet by mouth once daily. furosemide 20 mg tablet Commonly known as: LASIX Take 1 tablet by mouth every Sunday, Sunday, and Sunday. levothyroxine 50 mcg tablet Commonly known as: SYNTHROID Take 1 tablet by mouth daily at 6 am. melatonin 3 mg tablet Take 1 tablet by mouth daily at bedtime. CHANGE how you take these medications ethosuximide 250 mg capsule Commonly known as: ZARONTIN Take 1 capsule by mouth two times a day. What changed: how much to take how to take this Another medication with the same name was removed. Continue taking this medication, and follow the directions you see here. phenytoin ER 100 mg ER capsule Commonly known as: DILANTIN Take 1 capsule by mouth three times a day. What changed: when to take this Another medication with the same name was removed. Continue taking this medication, and follow the directions you see here. CONTINUE taking these medications ARTIFICIAL TEAR SOLUTION OPHTHALMIC bisacodyl 10 mg Supp Commonly known as: DULCOLAX CLARITIN 10 mg tablet Generic drug: loratadine FLEET ENEMA enema Generic drug: sodium phosphate-sodium bisphosphate fluticasone 50 mcg/actuation nasal spray Commonly known as: FLONASE GAVISCON EXTRA STRENGTH 254-237.5 mg/5 mL Susp Generic drug: Aluminum Hydrox-Magnesium Carb LOSARTAN ORAL magnesium hydroxide 2,400 mg/10 mL Susp montelukast 10 mg tablet Commonly known as: SINGULAIR pantoprazole DR 40 mg tablet Commonly known as: PROTONIX ROBITUSSIN-DM ORAL Senna 8.6 mg Tab Generic drug: senna SOOTHE XP 1-4.5 % Drop Generic drug: Light Mineral Oil-Mineral Oil TylenoL 325 mg tablet Generic drug: acetaminophen valproic acid 250 mg/5 mL syrup Commonly known as: DEPAKENE Take 20 mL by mouth three times a day. Vitamin D-3 50 mcg (2,000 unit) Cap Generic drug: Cholecalciferol (Vitamin D3) STOP taking these medications phenytoin 125 mg/5 mL Susp Commonly known as: Dilantin phenytoin chewable 50 mg tablet Commonly known as: DILANTIN PHENYTOIN SODIUM ORAL valproic acid 250 mg capsule Commonly known as: DEPAKENE [facility] 08-20-2024 Note HNO ID: [id number] Author: LOLITA SALAZAR RN Service: Care Management Author Type: Registered Nurse Type: Care Mgt Progress Note Filed: 08/20/2024 11:33 Note Text: CARE MANAGEMENT DISCHARGE NOTE SERVICE DATE: August 20, 2024 SERVICE TIME: 11:32 AM Admission Date: 08/17/2024 LOS: 3 days Discharge Arrangement Discharge Arrangement: Extended Care Facility Provider Name: [facility] Mu-Ism, Caregiver Assessment Caregiver is ready, willing and able to meet the patient's needs as recommended by the inter-professional team: Yes Name of Caregiver: ECF Transportation Arrangements Transportation Arrangements: Ambulance Transportation Agency and Phone #:: [facility] ( [facility] ) [phone] / [phone] Date of Trip: 08/20/24 Time of Trip: 1200 Type of Service: BLS Non-emergency Is Patient Medicaid Pending?: No Was transportation financial coverage discussed with family?: [employer] Location: [facility] Destination: [facility] Financial Care Management Responsibility: None Handoff Communication: Handoff to: Primary Care Physician Primary Care Physician Name/Phone: Orville Mendoza DO, Additional Information: Discharge Information Row Name Admission (Current) [place] 08/17/2024 in [place] [facility] NEUR[facility]/C[facility] brother Delgado, updated and agreeable. Discharge instructions sent via [employer]. Discharge packet is on pt's chart. RN report number is [phone]. [facility] transport scheduled for 08/20 at 12PM. SIGNATURE: Lolita Salazar RN, BSN PATIENT NAME: Katheryn Chino DATE: August 20, 2024 TIME: 11:32 AM CONTACT #: [phone] [facility] 08-19-2024 Note HNO ID: [id number] Author: ROXI MONTILLA RN Service: Nursing Author Type: Registered Nurse Type: Nursing Progress Note Filed: 08/19/2024 18:35 Note Text: Other: tele order d/c and cleaned and placed at the nurses station. [facility] 08-19-2024 Note SARS-COV-2 (AGENT OF COVID-19) RNA: Not detected INFLUENZA A RNA: Not detected INFLUENZA B RNA: Not detected RESPIRATORY SYNCYTIAL VIRUS (RSV) RNA: Not detected [facility] Comment on above: Performed By: #### 9 [id number] ####[facility] [id number] [address] 08-19-2024 Note HNO ID: [id number] Author: LOLITA SALAZAR RN Service: Care Management Author Type: Registered Nurse Type: Care Mgt Progress Note Filed: 08/19/2024 15:11 Note Text: CARE MANAGEMENT PROGRESS NOTE SERVICE DATE: 08/19/2024 SERVICE TIME: 2:43 PM LOS: 2 days Needs Prior to Discharge: Other: See Comment (Medical stability) IMM Follow Up Copy Given: Yes Copy given to:: Patient Corporate Real Estate Specialist Corporate Real Estate Specialist Name/Relationship: brother Delgado Method: By Phone Per MD, pt is medically ready for discharge. CM spoke with Roxi ([phone]) at [facility]. Pt is able to return, but referral that was sent through [facility] was not received. Referral sent again. [facility] transport scheduled for 08/19 at 9:30PM. CM updated Roxi regarding transport time, Roxi states they are unable to accept pt back at that time. [facility] transport rescheduled for 08/20 at 12PM, discharge packet is on pt's chart. Roxi updated and agreeable. Dr. Dominguez and bedside RN updated. CM spoke with Danny, brother, updated and agreeable. Update 1510: QUINN received a call from [facility] April Mosley. April requested pt return skilled and will need PT/OT evals. PT/OT are not ordered, Dr. Dominguez notified of their request. April also requested a COVID test, Dr. Dominguez notified. SIGNATURE: Lolita Salazar RN, BSN PATIENT NAME: Katheryn Chino DATE: August 19, 2024 TIME: 2:43 PM PAGER/CONTACT #: [phone] [facility] 08-19-2024 Note HNO ID: [id number] Author: CARYL DOMINGUEZ DO Service: Hospital Medicine Author Type: Physician Type: Progress Notes Filed: 08/19/2024 14:58 Note Text: DEPARTMENT OF HOSPITAL MEDICINE PROGRESS NOTE SERVICE DATE: 08/19/2024 SERVICE TIME: 2:35 PM Hospital Medicine/Primary Attending: Caryl Dominguez DO NIGHT AND WEEKEND COVERAGE: [place] COVERAGE: After 7pm, please call cross cover pager #[phone] Subjective Patient denies complaints, watching the hallmark channel INTERVAL HPI: 79 y/o female with PMHx of Epilepsy who was transfer to [facility] due to breakthrough seizure. Phenytoin and Valproic acid levels were both low. Neurology recommended adjusted doses of her AED. She is medically stable to discharge back to her ECF on 08/20 pending on transport. MEDICATIONS: Reviewed Objective PHYSICAL EXAM: BP 126/66 Pulse 75 Temp (Src) 98.3 (Oral) Resp 17 Ht 5' 6" (1.68m) Wt 192 lb 3.9 oz (87.2kg) SpO2 94% BMI 31.04 kg/(m2). O2 Therapy: Room Air Physical Exam Performed GENERAL: Alert, no distress, cooperative SKIN: Skin color, texture, turgor normal. No rashes or lesions. EYES: PERRLA OROPHARYNX: Lips, mucosa, and tongue normal. Teeth and gums normal. Oropharynx normal. LUNGS: Lungs clear to auscultation, Good diaphragmatic excursion CARDIAC: Normal S1 and S2; no rubs, murmurs, or gallops ABDOMEN: Abdomen soft, non-tender, BS normal, No masses or organomegaly Lines, Drains, and Airways Line Duration Peripheral 08/17/242115 [facility] Short Left Antecubital 20 Gauge 1 day Reviewed lines and needs to be continued: REASONS: Intravenous fluids DATA: Diagnostic tests reviewed for today's visit: Most recent labs and imaging results. Assessment/Plan Principal Problem: Breakthrough seizure (HCC) (POA: Yes) Assessment AND Plan: Evaluated by neurology. Recommended increasing dilantin to 100 mg TID, restart depakote 1,000 mg TID and continue ethosuxamide 250 mg BID. Active Problems: #HTN -losartan 25 mg daily, lasix MWF #Hypothyroid -synthroid 50 #MDD -escitalopram 20 #GERD -PPI Code status: DNR-CCA Resolved Problems: * No resolved hospital problems. * Obesity Class I (BMI 30-34.9) Medication and Non-Pharmacologic VTE Prophylaxis/Anticoagulants 08/17/242229 vte current anticoag therapy ([place] 08/17/242229 activity - mobilize patient ([place] VTE Prophylaxis: VTE prophylaxis appropriate Disposition: Home Plan of care discussed with: Provider, RN, Patient SIGNATURE: Caryl Dominguez DO PATIENT NAME: Katheryn Chino DATE: August 19, 2024 TIME: 2:35 PM etx [phone] [facility] 08-18-2024 Note HNO ID: [id number] Author: VANESSA LAWSON RN Service: Care Management Author Type: Registered Nurse Type: Care Mgt Initial Assessment Filed: 08/18/2024 14:19 Note Text: CARE MANAGEMENT: ASSESSMENT AND DISCHARGE PLAN SERVICE DATE: August 18, 2024 SERVICE TIME: 2:16 PM PCP: Orville Mendoza DO Primary Contact: Extended Emergency Contact Information Primary Emergency Contact: Danny Chino Mobile Relation: Brother Admission Status: Inpatient Insurance Provider: MEDICARE A AND B Discharge Planning requested by: Per Department Practice Potential Transition Plans Intermediate Facility/Intermediate Care Facility Advance Directives Current Advance Directive: Health Care Power of Oil Plant Operator In Chart: No Station Engineer Attempted to Assist with AD Completion: Yes Action: Education Provided Current Living Arrangements and Support Lives with: Alone Type of Residence: Extended Care Facility Does the patient have to climb stairs at home?: No Support: Family members, Other: See Comment ECF staff How do you manage to accomplish the following: Dependent: Ambulation;Bathe/Shower;Dress;Meal s/Meal Prep;Going to the bathroom;Medication Management;Transportation to appointments/community Current Services/Equipment Current Post-Acute Service(s): DME Current DME Type: Wheelchair-manual Discharge Planning Patient Goal(s): General wellness [place] of Choice Explained: [place] of Choice Given: Yes Level of Care Discussed: Other: See Comment (return to eCF) Are you interested in bedside delivery of your medications? Yes Discharge Planning Participant(s): Family Patient/Family Comments: brother Danny Caregiver Assessment: Caregiver is ready, willing and able to meet the patient's needs as recommended by the inter-professional team: Other: See Comment (return referral sent to eCF pending response) Transport at Discharge: Transportation Arrangements: Ambulance Transportation Agency and Phone #:: [facility] ( [facility] ) [phone] / [phone] Type of Service: BLS Non-emergency Is Patient Medicaid Pending?: No Was transportation financial coverage discussed with family?: [employer] Location: [facility] Destination: [facility] Financial Care Management Responsibility: None Needs Prior to Discharge: Needs Prior to Discharge: To Be Determined Post-Acute Discharge Plan: Spoke with brother Danny via phone. states that he is HCPOA, not on file with [facility]. Patient has been a resident of [facility] for the past 10 years. Return referral sent. +PCP. +Rx. +DME wheelchair bound at baseline. Plan for patient to return to [facility] on discharge. Will need to clarify if patient is bed hold or if precert is needed to return. Cot transport. CM to follow for transitional care planning. SIGNATURE: Vanessa Lawson RN PATIENT NAME: Katheryn Chino DATE: August 18, 2024 TIME: 2:16 PM CONTACT #: [phone] [facility] 08-18-2024 Note HNO ID: [id number] Author: CARYL DOMINGUEZ DO Service: Hospital Medicine Author Type: Physician Type: Progress Notes Filed: 08/18/2024 16:30 Note Text: DEPARTMENT OF HOSPITAL MEDICINE PROGRESS NOTE SERVICE DATE: 08/18/2024 SERVICE TIME: 2:15 PM Hospital Medicine/Primary Attending: Caryl Dominguez DO NIGHT AND WEEKEND COVERAGE: AKDANNY COVERAGE: After 7pm, please call cross cover pager #[phone] Subjective INTERVAL HPI: 79 y/o female with PMHx of Epilepsy who was transfer to [facility] due to breakthrough seizure. MEDICATIONS: Reviewed Objective PHYSICAL EXAM: BP 129/59 Pulse 76 Temp (Src) 98.9 (Oral) Resp 18 Ht 5' 6" (1.68m) Wt 192 lb 3.9 oz (87.2kg) SpO2 93% BMI 31.04 kg/(m2). O2 Therapy: Room Air Physical Exam Performed GENERAL: Alert, no distress, cooperative SKIN: Skin color, texture, turgor normal. No rashes or lesions. EYES: PERRLA OROPHARYNX: Lips, mucosa, and tongue normal. Teeth and gums normal. Oropharynx normal. LUNGS: Lungs clear to auscultation, Good diaphragmatic excursion CARDIAC: Normal S1 and S2; no rubs, murmurs, or gallops ABDOMEN: Abdomen soft, non-tender, BS normal, No masses or organomegaly Lines, Drains, and Airways Line Duration Peripheral 08/17/242115 [facility] Short Left Antecubital 20 Gauge <1 day Reviewed lines and needs to be continued: REASONS: Intravenous fluids DATA: Diagnostic tests reviewed for today's visit: Most recent labs and imaging results. Assessment/Plan Principal Problem: Breakthrough seizure (HCC) (POA: Yes) Assessment AND Plan: Evaluated by neurology. Recommended increasing dilantin to 100 mg TID, restart depakote 1,000 mg TID and continue ethosuxamide 250 mg BID. Active Problems: #HTN -losartan 25 mg daily, lasix MWF #Hypothyroid -synthroid 50 #MDD -escitalopram 20 #GERD -PPI Code status: DNR-CCA Resolved Problems: * No resolved hospital problems. * Obesity Class I (BMI 30-34.9) Medication and Non-Pharmacologic VTE Prophylaxis/Anticoagulants 08/17/242229 vte current anticoag therapy (ga,oh) 08/17/242229 activity - mobilize patient (ga,nh) VTE Prophylaxis: VTE prophylaxis appropriate Disposition: Home Plan of care discussed with: Provider, RN, Patient SIGNATURE: Caryl Dominguez DO PATIENT NAME: Katheryn Chino DATE: August 18, 2024 TIME: 2:15 PM etx [id number] [facility] 08-17-2024 Telephone encounter Note I received a call from the emergency room at [facility] regarding a patient of Dr. Nava. Patient has been seen by Dr. Nava in 2019. This is a patient with developmental delay and epilepsy. She has primary generalized seizures. Previous notes:Review of records for Katheryn Chino, a 74 year old developmentally delayed female, being referred by Dr. 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 She is wheelchair bound with struggles with dysphasia; her brother is POA. EEG report (08/2018) noted This EEG supports the diagnosis of generalized epilepsy. There were infrequent spike wave discharges generalized during sleep." MRI brain report noted Fairly prominent extra-axial fluid surrounding the bilateral cerebral hemispheres, with somewhat less extensive prominence of the cerebellar folia. 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 Patient currently takes 3 AEDs; and POA/brother doesn't recall prior AED trials, which are also unavialble in OSH record. She has rare seizures, last seizure in 2018, prior to that she had been seizure free 3 years. Visit with epileptologist at [facility] and long EEG are indicated at this time due to rare seizures. Events on 08/17/2024 Patient had a 15-minute seizure in the custodial. She had not had any seizures recently. Her Depakote level was therapeutic at 101. She went back to her baseline when she was in the ER. She had another seizure in the emergency room that lasted approximately 10 minutes. She is a DNR/DNI. Her brother is available for making decisions. I think the patient should be transferred to higher level of care. She may be in status epilepticus since it is difficult to assess whether she is back to her baseline given her developmental delay. Obviously the family needs to make a decision as to whether she is to have comfort care or aggressive care of her seizures. She may need continuous EEG monitoring and this is available only at larger centers. Many of these patients will need intubation for managing status epilepticus if this is present. I think if they do not want any aggressive treatment and only comfort care one option may be to give levetiracetam 1 g IV and then 500 twice a day and observe her for 24 hours in another hospital facility without continuous EEG monitoring. Patient has not been seen in the [facility] system since 2019. At the minimum she needs an evaluation to reassess her epilepsy. Francisco Javier Salazar MD Neurology. (Telemedicine neurologist) [facility] Work Phone: 08-17-2024 Miscellaneous Notes I received a call from the emergency room at [facility] regarding a patient of Dr. Nava. Patient has been seen by Dr. Nava in 2019. This is a patient with developmental delay and epilepsy. She has primary generalized seizures. Previous notes:Review of records for Katheryn Chino, a 74 year old developmentally delayed female, being referred by Dr. 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 She is wheelchair bound with struggles with dysphasia; her brother is POA. EEG report (08/2018) noted This EEG supports the diagnosis of generalized epilepsy. There were infrequent spike wave discharges generalized during sleep." MRI brain report noted Fairly prominent extra-axial fluid surrounding the bilateral cerebral hemispheres, with somewhat less extensive prominence of the cerebellar folia. 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 Patient currently takes 3 AEDs; and POA/brother doesn't recall prior AED trials, which are also unavialble in OSH record. She has rare seizures, last seizure in 2018, prior to that she had been seizure free 3 years. Visit with epileptologist at [facility] and long EEG are indicated at this time due to rare seizures. Events on 08/17/2024 Patient had a 15-minute seizure in the custodial. She had not had any seizures recently. Her Depakote level was therapeutic at 101. She went back to her baseline when she was in the ER. She had another seizure in the emergency room that lasted approximately 10 minutes. She is a DNR/DNI. Her brother is available for making decisions. I think the patient should be transferred to higher level of care. She may be in status epilepticus since it is difficult to assess whether she is back to her baseline given her developmental delay. Obviously the family needs to make a decision as to whether she is to have comfort care or aggressive care of her seizures. She may need continuous EEG monitoring and this is available only at larger centers. Many of these patients will need intubation for managing status epilepticus if this is present. I think if they do not want any aggressive treatment and only comfort care one option may be to give levetiracetam 1 g IV and then 500 twice a day and observe her for 24 hours in another hospital facility without continuous EEG monitoring. Patient has not been seen in the [facility] system since 2018. At the minimum she needs an evaluation to reassess her epilepsy. Francisco Javier Salazar MD Neurology. (Telemedicine neurologist) documented in this encounter [facility] 08-10-2023 Miscellaneous Notes Mireille from [facility] called to request medical records for [...] number to call and schedule the appointment. [phone] documented in this encounter [facility] 08-08-2023 Miscellaneous Notes Appears following with Dr. Pereira. Will forward. Duncan Nava MD I did not order labs. Pt needs follow up. Not seen in 3+ years. Duncan Nava MD Fax received from [facility] requesting labs to be reviewed by Dr. Nava and a reply. Pt has not been seen in neurology department since 2019. Please review and advise. 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 affecting estrogen receptors and estrogen levels Encounter for screening for osteoporosis Special screening for osteoporosis [facility] Diagnosis Intractable epilepsy without status epilepticus, unspecified epilepsy type (HCC) [facility]* Diagnosis Intractable epilepsy without status epilepticus, unspecified epilepsy type (HCC)- Primary documented in this encounter [facility] note* Diagnosis Intractable epilepsy without status epilepticus, unspecified epilepsy type (HCC) documented in this encounter [facility] note* Diagnosis 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 osteoporosis Special screening for 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 affecting estrogen receptors and estrogen levels [facility]* Diagnosis Osteoporosis without current pathological fracture, unspecified osteoporosis type- Primary [facility]* Diagnosis Intractable epilepsy without status epilepticus, unspecified epilepsy type (HCC) [facility]* Diagnosis Sepsis due to urinary tract infection (HCC)- Primary Sepsis due to urinary tract infection (HCC) Breakthrough seizure (CMS/HCC) (HCC) Fever, unspecified fever cause documented in this encounter [facility] note* Diagnosis Intractable epilepsy without status epilepticus, unspecified epilepsy type (HCC)- Primary documented in this encounter [facility] note* Diagnosis Intractable epilepsy without status epilepticus, unspecified epilepsy type (HCC) Osteoporosis without current pathological fracture, unspecified osteoporosis type [facility]* Diagnosis Intractable epilepsy without status epilepticus, unspecified epilepsy type (HCC)- Primary [facility]* Diagnosis Osteoporosis without current pathological fracture, unspecified osteoporosis type- Primary Wheelchair dependent Wheelchair 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) History of long-term treatment with high-risk medication Encounter for long-term (current) use of other medications documented in this encounter [facility] note* Diagnosis Postmenopausal osteoporosis- Primary Senile osteoporosis documented in this encounter [facility] for referral (narrative)* Diagnostic Procedure Only (Routine) - Authorized Specialty Diagnoses / Procedures Referred By Contac t Referred To Contact XR IMAGING Diagnoses 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 and estrogen levels Procedures DXA-AXIAL SKELETON DXA BONE DENSITY STUDY 1/> SITES AXIAL Jayant Villeda MD [address] [place] [address] Xr Imaging [place] [address] Referral ID Status Reason Start Date Expiration Date Visits Requested Visits Authorized [id number] Authorized Auto-Generat ed Referral 10/24/2025 1 1 [facility] for referral (narrative)No reason for referral [facility] N[facility]* Diagnostic Procedure Only (Routine) - Closed Specialty Diagnoses / Procedures Referred By Contac t Referred To Contact XR IMAGING Diagnoses 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 and estrogen levels Procedures DXA-AXIAL SKELETON DXA BONE DENSITY STUDY 1/> SITES AXIAL Jayant Villeda MD [address] [place] [id number] Phone: tel: fax: XR IMAGING [place] [address] Referral ID Status Reason Start Date Expiration Date V isits Requested Visits Authorized [id number] Closed Auto-Generate d Referral 09/24/2024 10/24/2025 1 1 [facility] Summary Purpose Family History No Family History Records FoundNo Family History Records FoundNo Family History Records FoundNo Family History Records FoundNo Family History Records FoundNo Family History Records FoundNo Family History Records FoundNo Family History Records Found Advance Directives No Advanced Directives Records Found Advance Directive Response Recorded Date/ Time Name of Medical Power of Oil Plant Operator Danny Ledesma September 18, 2023 10:22am Living Will Yes September 18 10:22am Power of Oil Plant Operator Yes September 18, 2023 10:22am Documents on File Type Date Recorded 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 Advance Directive(s) 08/21/2024 2:00 PM Advance Directive(s) 08/21/2024 1:57 PM Date Activated Date Inactivated Comments 08/18/2024 12:17 PM 08/20/2024 4:37 PM Question Answer Comments DNR Order Discussed With: Surrogate Decision Ryley er Surrogate Decision Maker Relationship: Health Ca re Power of Oil Plant Operator Agent Date Activated Date Inactivated Comments 08/17/2024 10:16 PM 08/18/2024 12:17 PM Question Answer Comments DNR Order Discussed With: State-Approved DNR Mariana ntification Documents on File Type Date Recorded 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 Advance Directive(s) 08/21/2024 2:00 PM Advance Directive(s) 08/21/2024 1:57 PM Date Activated Date Inactivated Comments 08/18/2024 12:17 PM 08/20/2024 4:37 PM Question Answer Comments DNR Order Discussed With: Surrogate Decision Ryley er Surrogate Decision Maker Relationship: Health Ca re Power of Oil Plant Operator Agent Date Activated Date Inactivated Comments 08/17/2024 10:16 PM 08/18/2024 12:17 PM Question Answer Comments DNR Order Discussed With: State-Approved DNR Mariana ntification Date Activated Date Inactivated Comments 12/04/2024 1:22 AM 12/08/2024 5:19 PM Healthcare Agents on File Name Relationship [facility] Chino Brother First Alternate Health Care Agent Advance Directive Response Recorded Date/ Time Living Will Yes December 03 10:35am Do you have a Healthcare Power of Oil Plant Operator? Yes December 03, 2024 10:35am Name of Medical Power of Oil Plant Operator Danny Chino December 03, 2024 10:35am Chief Complaint and Reason for Visit Chief Complaint LONGTERM LAB WOR K LONGTERM BLOOD WORK LONGTERM LAB WORK LONGTERM LABWORK LONGTERM LABWORK Chief Complaint LONGTERM BLOOD W ORK LONGTERM LAB WORK LONGTERM LABWORK LONGTERM LABWORK Chief Complaint LONGTERM LABWORK LONGTERM LABWORK LONGTERM LAB WORK Chief Complaint LONGTERM LAB WOR K LABWORK Chief Complaint LABWORK Chief Complaint LABWORK LONGTERM LABWORK LONGTERM LAB WORK LABWORK Chief Complaint LONGTERM LAB WOR K LABWORK Chief Complaint LONGTERM LAB WOR K LABWORK LABWORK Chief Complaint LABWORK LABWORK SEIZURE Chief Complaint LABWORK LABWORK SEIZURE LONGTERM LABWORK Chief Complaint LABWORK LABWORK SEIZURE LONGTERM LABWORK LABWORK Chief Complaint Admit Date LAB WORK September 17, 2024 5 :30am LAB WORK September 19, 2024 5 :00am LABWORK September 22, 2024 5 :00am LAB WORK September 26, 2024 5:00am LABWORK September 29, 2024 5:00am LONGTERM LAB WORK November 14, 2024 5:00am seizure December 03, 2024 9:32am LABWORK December 10, 2024 5:00am LONGTERM LAB WORK December 15, 2024 5: 00am Chief Complaint Admit Date LAB WORK September 19, 2024 5 :00am LABWORK September 22, 2024 5 :00am LAB WORK September 26, 2024 5:00am LABWORK September 29, 2024 5:00am LONGTERM LAB WORK November 14, 2024 5:00am seizure December 03, 2024 9:32am LABWORK December 10, 2024 5:00am LONGTERM LAB WORK December 15, 2024 5: 00am LONGTERM LAB WORK December 26, 2024 5 :00am Chief Complaint Admit Date LONGTERM LAB WORK November 14, 2024 5:00am seizure December 03, 2024 9:32am LABWORK December 10, 2024 5:00am LONGTERM LAB WORK December 15, 2024 5: 00am LONGTERM LAB WORK December 26, 2024 5 :00am LONGTERM LAB WORK January 19, 2025 5: 00am Chief Complaint Admit Date LONGTERM LAB WORK November 14, 2024 5:00am seizure December 03, 2024 9:32am LABWORK December 10, 2024 5:00am LONGTERM LAB WORK December 15, 2024 5: 00am LONGTERM LAB WORK December 26, 2024 5 :00am LONGTERM LAB WORK January 19, 2025 5: 00am LABWORK January 28, 2025 5:0 0am Chief Complaint Admit Date LONGTERM LAB WORK November 14, 2024 5:00am seizure December 03, 2024 9:32am LABWORK December 10, 2024 5:00am LONGTERM LAB WORK December 15, 2024 5: 00am LONGTERM LAB WORK December 26, 2024 5 :00am LONGTERM LAB WORK January 19, 2025 5: 00am LABWORK January 28, 2025 5:0 0am LONGTERM LAB WORK February 02, 2025 5 :00am Additional Source Comments INFORMATION SOURCE (unrecogn ized section and content) DATE CREATED AUTHOR 01/24/2019 [facility] [employer] DATE CREATED AUTHOR AUTHOR'S ORGANIZ ATION 07/30/2019 [facility] DATE CREATED AUTHOR AUTHOR'S ORGANIZ ATION 12/05/2024 [facility] [employer] [facility] DATE CREATED AUTHOR AUTHOR'S ORGANIZ ATION 12/17/2024 [facility] [employer] [facility] DATE CREATED AUTHOR AUTHOR'S ORGANIZ ATION 01/18/2025 [facility] DATE CREATED AUTHOR AUTHOR'S ORGANIZ ATION 03/24/2025 [facility] DATE CREATED AUTHOR AUTHOR'S ORGANIZ ATION 04/05/2025 [facility] Goals (unrecognized section and content) Goals may be documented in a n alternate sectionGoals may be documented in an alternate sectionGoals may be documented in an alternate sectionGoals may be documented in an alternate sectionGoals may be documented in an alternate sectionGoals may be documented in an alternate sectionGoals may be documented in an alternate sectionGoals may be documented in an alternate sectionGoals may be documented in an alternate sectionGoals may be documented in an alternate sectionGoals may be documented in an alternate sectionGoals may be documented in an alternate sectionGoals may be documented in an alternate sectionGoals may be documented in an alternate sectionGoals may be documented in an alternate sectionGoals may be documented in an alternate sectionGoals may be documented in an alternate section Care Teams (unrecognized sec tion and content) Team Status: Active Member Role Status Dates Todd Velasquez MD Primary Care Provider Active Team Status: Inactive Member Role Status Dates Orville Kelly Primary Care Provider, Attending Provi torito Active Team Status: Inactive Member Role Status Dates Orville Mendoza Primary Care Provider Active Toddkathrine Velasquez MD Attending Provider Active Team Status: Inactive Member Role Status Daisy Velasquez MD Primary Care Provide r, Attending Provider, Referring Provider Active Team Status: Inactive Member Role Status Dates Todd Velasquez MD Primary Care Provider, Attending Pro vider Active Intake Worker Relationship Specialty Start Date End Date Orville Mendoza [address] [place] [address] PCP - General Family Medicine 08/07/18 Claudia Gaston APRN.MACHINED PARTS QUALITY INSPECTOR [address] [place] [id number] Referring Neurosurgery 07/29/19 Intake Worker Relationship Specialty Start Date End Date Orville Mendoza [address] [place] [address] PCP - General Family Medicine 08/07/18 Claudia Gaston, ANYI.MACHINED PARTS QUALITY INSPECTOR [address] [place] [id number] Referring Neurosurgery 07/29/19 Team Status: Active Member Role Status Dates Todd FOX MD Primary Care Provider Active Team Status: Inactive Member Role Status Dates Todd FOX MD Primary Care Provider, Attending Provider Active Team Status: Inactive Member Role Status Daisy FOX MD Primary Care Provid er, Attending Provider, Referring Provider Active Team Status: Inactive Member Role Status Dates Todd FOX MD Primary Care Provider Active Dr. Kee Amezquita MD Referring Provider, Emergency Provider Active Team Status: Inactive Member Role Status Daiys FOX MD Primary Care Provider Active Dr. Kee Amezquita MD Attending Provid er, Referring Provider, Emergency Provider Active Team Status: Active Member Role Status Dates Todd Ron FOX MD Primary Care Provider, Attending Provider Active Intake Worker Relationship Specialty Start Date End Date Orville Mendoza DO [address] [place] [address] PCP - General Family Medicine 08/07/18 Claudia Gaston APRN.MACHINED PARTS QUALITY INSPECTOR [address] [place] [id number] Referring Neurosurgery 07/29/19 Intake Worker Relationship Specialty Start Date End Date Orville MendozaDO [address] [place] [address] PCP - General Family Medicine 08/07/18 Claudia Gaston APRN.MACHINED PARTS QUALITY INSPECTOR [address] [place] [address] Referring Neurosurgery 07/29/19 Intake Worker Relationship Specialty Start Date End Date Orville MendozaDO [address] [place] [address] PCP - General Family Medicine 08/07/18 Claudia Gaston APRN.MACHINED PARTS QUALITY INSPECTOR [address] [place] [id number] Referring Neurosurgery 07/29/19 Intake Worker Relationship Specialty Start Date End Date Orville MendozaDO [address] [place] [address] PCP - General Family Medicine 08/07/18 Claudia Gaston APRN.MACHINED PARTS QUALITY INSPECTOR [address] [place] [address] Referring Neurosurgery 07/29/19 Intake Worker Relationship Specialty Start Date End Date Orville Mendoza DO [address] [place] [address] PCP - General Family Medicine 08/07/18 Claudia Gaston APRN.MACHINED PARTS QUALITY INSPECTOR [address] [place] [address] Referring Neurosurgery 07/29/19 Intake Worker Relationship Specialty Start Date End Date Orville Mendoza DO [address] [place] [address] PCP - General Family Medicine 08/07/18 Claudia Gaston APRN.MACHINED PARTS QUALITY INSPECTOR [address] [place] [address] Referring Neurosurgery 07/29/19 Intake Worker Relationship Specialty Start Date End Date Orville Mendoza DO [address] [place] [address] PCP - General Family Medicine 08/07/18 Claudia Gaston APRN.MACHINED PARTS QUALITY INSPECTOR [address] [place] [id number] Referring Neurosurgery 07/29/19 Intake Worker Relationship Specialty Start Date End Date Orville Mendoza DO [address] [place] [id number] PCP - General Family Medicine 08/07/18 Claudia Gaston APRN.MACHINED PARTS QUALITY INSPECTOR [address] [place] [address] Referring Neurosurgery 07/29/19 Intake Worker Relationship Specialty Start Date End Date Orville Mendoza DO [address] [place] [address] PCP - General Family Medicine 08/07/18 Claudia Gaston APRN.MACHINED PARTS QUALITY INSPECTOR [address] [place] [address] Referring Neurosurgery 07/29/19 Intake Worker Relationship Specialty Start Date End Date Orville Mendoza DO [address] [place] [address] PCP - General Family Medicine 08/07/18 Claudia Gaston, ANYI.MACHINED PARTS QUALITY INSPECTOR [address] [place] [address] Referring Neurosurgery 07/29/19 Intake Worker Relationship Specialty Start Date End Date Orville Mendoza, DO [address] [place] [address] PCP - General Family Medicine 08/07/18 Claudia Gaston, ANYI.MACHINED PARTS QUALITY INSPECTOR [address] [place] [address] Referring Neurosurgery 07/29/19 Intake Worker Relationship Specialty Start Date End Date Orville Mendoza, DO [address] [place] [address] PCP - General Family Medicine 08/07/18 Claudia Gaston APRN.MACHINED PARTS QUALITY INSPECTOR [address] [place], [place] [id number] Referring Neurosurgery 07/29/19 Intake Worker Relationship Specialty Start Date End Date Orville Mendoza DO [address] [place], [place] [id number] PCP - General Family Medicine 08/07/18 Claudia Gaston, CENTRIFUGE SEPARATOR OPERATOR.MACHINED PARTS QUALITY INSPECTOR [address] [place], [place] [id number] Referring Neurosurgery 07/29/19 Intake Worker Relationship Specialty Start Date End Date Orville Mendoza DO [address] [place], [place] [id number] PCP - General Family Medicine 08/07/18 Claudia Gaston, CENTRIFUGE SEPARATOR OPERATOR.MACHINED PARTS QUALITY INSPECTOR [address] [place], [place] [id number] Referring Neurosurgery 07/29/19 Intake Worker Relationship Specialty Start Date End Date Orville Mendoza DO [address] [place] [address] [address] [place] [address] PCP - General 03/15/19 Intake Worker Relationship Specialty Start Date End Date Orville Mendoza, DO [address] [place], [place] [id number] PCP - General Family Medicine 08/07/18 Claudia Gaston, CENTRIFUGE SEPARATOR OPERATOR.MACHINED PARTS QUALITY INSPECTOR [address] [place], [place] [address] Referring Neurosurgery 07/29/19 Team Status: Active Member Role Status Dates Dr. Todd Velasquez Sr. , DO Primary Care Provider Active Team Status: Active Member Role Status Dates Todd FOX MD Primary Care Provider Active Start: September 17, 2024 Todd FOX MD Attending Provider Active S tart: September 17, 2024 Team Status: Active Member Role Status Dates Todd FOX MD Primary Care Provider Active Start: September 19, 2024 Todd FOX MD Attending Provider Active S tart: September 19, 2024 Team Status: Active Member Role Status Dates Todd FOX MD Primary Care Provider Active Start: September 22, 2024 Todd FOX MD Attending Provider Active S tart: September 22, 2024 Team Status: Active Member Role Status Dates Todd FOX MD Primary Care Provider Active Start: September 26, 2024 Todd FOX MD Attending Provider Active S tart: September 26, 2024 Team Status: Active Member Role Status Dates Todd FOX MD Primary Care Provider Active Start: September 29, 2024 Todd FOX MD Attending Provider Active S tart: September 29, 2024 Team Status: Active Member Role Status Dates Todd FOX MD Primary Care Provider Active Start: November 08, 2024 [facility] Attending Provider Active Start: November 08, 2024 Team Status: Active Member Role Status Dates Todd FOX MD Primary Care Provider Active Start: November 14, 2024 Todd FOX MD Attending Provider Active S tart: November 14, 2024 Team Status: Inactive Member Role Status Dates Dr. Damir Mckee MD Attending Provider Active Sta rt: December 03, 2024 End: December 03, 2024 Dr. Damir Mckee MD Emergency Provider Active Sta rt: December 03, 2024 End: December 03, 2024 Dr. Todd Velasquez Sr. , DO Primary Care Provider Active Start: December 03, 2024 End: December 03, 2024 Team Status: Active Member Role Status Dates Dr. Todd Velasquez Sr. , DO Primary Care Provider Active Start: December 10, 2024 Todd FOX MD Attending Provider Active S tart: December 10, 2024 Team Status: Inactive Member Role Status Dates Dr. Todd Velasquez Sr. , DO Primary Care Provider Active Start: December 15, 2024 End: December 15, 2024 Todd FOX MD Attending Provider Active S tart: December 15, 2024 End: December 15, 2024 Team Status: Active Member Role Status Dates Dr. Todd Velasquez Sr. , DO Primary Care Provider Active Start: December 26, 2024 Todd FOX MD Attending Provider Active S tart: December 26, 2024 Intake Worker Relationship Specialty Start Date End Date Orville Mendoza, DO [address] [place] [id number] PCP - General Family Medicine 08/07/18 Claudia Gaston APRN.[facility] [address] [place] [id number] Referring Neurosurgery 07/29/19 Team Status: Inactive Member Role Status Dates Dr. Todd Velasquez Sr. , DO Primary Care Provider Active Start: December 26, 2024 End: December 26, 2024 Todd FOX MD Attending Provider Active S tart: December 26, 2024 End: December 26, 2024 Team Status: Inactive Member Role Status Dates Dr. Todd Velasquez Sr. , DO Primary Care Provider Active Start: January 19, 2025 End: January 19, 2025 Todd FOX MD Attending Provider Active S tart: January 19, 2025 End: January 19, 2025 Team Status: Active Member Role Status Dates Dr. Todd Velasquez Sr. , DO Primary Care Provider Active Start: January 28, 2025 Todd FOX MD Attending Provider Active S tart: January 28, 2025 Team Status: Active Member Role Status Dates Dr. Todd Velasquez Sr. , DO Primary Care Provider Active Start: February 02, 2025 Todd FOX MD Attending Provider Active S tart: February 02, 2025 Intake Worker Relationship Specialty Start Date End Date Orville Mendoza, [address] [place] [address] PCP - General Family Medicine 08/07/18 Claudia Gaston APRN.MACHINED PARTS QUALITY INSPECTOR [address] [place] [address] Referring Neurosurgery 07/29/19 Team Status: Inactive Member Role Status Dates Dr. Todd Velasquez Sr. , DO Primary Care Provider Active Start: January 28, 2025 End: January 28, 2025 Todd FOX MD Attending Provider Active S tart: January 28, 2025 End: January 28, 2025 Team Status: Inactive Member Role Status Dates Dr. Todd Velasquez Sr. , DO Primary Care Provider Active Start: February 02, 2025 End: February 02, 2025 Todd FOX MD Attending Provider Active S tart: February 02, 2025 End: February 02, 2025 Team Status: Active Member Role Status Dates Dr. Todd Velasquez Sr. , DO Primary Care Provider Active Start: February 27, 2025 Todd FOX MD Attending Provider Active S tart: February 27, 2025 Source Comments (unrecognize d section and content) In the event this informatio n is protected by the Federal Confidentiality of Alcohol and Drug Abuse Patient Records regulations: The Federal rules restrict any use of the information to criminally investigate or prosecute any alcohol or drug abuse patient.[facility]In the event this information is protected by the Federal Confidentiality of Alcohol and Drug Abuse Patient Records regulations: The Federal rules restrict any use of the information to criminally investigate or prosecute any alcohol or drug abuse patient.[facility] TownshipIn the event this information is protected by the Federal Confidentiality of Alcohol and Drug Abuse Patient Records regulations: The Federal rules restrict any use of the information to criminally investigate or prosecute any alcohol or drug abuse patient.[facility] TownshipIn the event this information is protected by the Federal Confidentiality of Alcohol and Drug Abuse Patient Records regulations: The Federal rules restrict any use of the information to criminally investigate or prosecute any alcohol or drug abuse patient.[facility] TownshipIn the event this information is protected by the Federal Confidentiality of Alcohol and Drug Abuse Patient Records regulations: The Federal rules restrict any use of the information to criminally investigate or prosecute any alcohol or drug abuse patient.[facility] TownshipIn the event this information is protected by the Federal Confidentiality of Alcohol and Drug Abuse Patient Records regulations: The Federal rules restrict any use of the information to criminally investigate or prosecute any alcohol or drug abuse patient.[facility] TownshipIn the event this information is protected by the Federal Confidentiality of Alcohol and Drug Abuse Patient Records regulations: The Federal rules restrict any use of the information to criminally investigate or prosecute any alcohol or drug abuse patient.[facility] TownshipIn the event this information is protected by the Federal Confidentiality of Alcohol and Drug Abuse Patient Records regulations: The Federal rules restrict any use of the information to criminally investigate or prosecute any alcohol or drug abuse patient.[facility] TownshipIn the event this information is protected by the Federal Confidentiality of Alcohol and Drug Abuse Patient Records regulations: The Federal rules restrict any use of the information to criminally investigate or prosecute any alcohol or drug abuse patient.[facility] TownshipIn the event this information is protected by the Federal Confidentiality of Alcohol and Drug Abuse Patient Records regulations: The Federal rules restrict any use of the information to criminally investigate or prosecute any alcohol or drug abuse patient.[facility] the event this information is protected by the Federal Confidentiality of Alcohol and Drug Abuse Patient Records regulations: The Federal rules restrict any use of the information to criminally investigate or prosecute any alcohol or drug abuse patient.[facility] TownshipIn the event this information is protected by the Federal Confidentiality of Alcohol and Drug Abuse Patient Records regulations: The Federal rules restrict any use of the information to criminally investigate or prosecute any alcohol or drug abuse patient.[facility] TownshipIn the event this information is protected by the Federal Confidentiality of Alcohol and Drug Abuse Patient Records regulations: The Federal rules restrict any use of the information to criminally investigate or prosecute any alcohol or drug abuse patient.[facility] the event this information is protected by the Federal Confidentiality of Alcohol and Drug Abuse Patient Records regulations: The Federal rules restrict any use of the information to criminally investigate or prosecute any alcohol or drug abuse patient.[facility] TownshipIn the event this information is protected by the Federal Confidentiality of Alcohol and Drug Abuse Patient Records regulations: The Federal rules restrict any use of the information to criminally investigate or prosecute any alcohol or drug abuse patient.[facility] TownshipIn the event this information is protected by the Federal Confidentiality of Alcohol and Drug Abuse Patient Records regulations: The Federal rules restrict any use of the information to criminally investigate or prosecute any alcohol or drug abuse patient.[facility] TownshipIn the event this information is protected by the Federal Confidentiality of Alcohol and Drug Abuse Patient Records regulations: The Federal rules restrict any use of the information to criminally investigate or prosecute any alcohol or drug abuse patient.[facility] TownshipIn the event this information is protected by the Federal Confidentiality of Alcohol and Drug Abuse Patient Records regulations: The Federal rules restrict any use of the information to criminally investigate or prosecute any alcohol or drug abuse patient.[facility] TownshipIn the event this information is protected by the Federal Confidentiality of Alcohol and Drug Abuse Patient Records regulations: The Federal rules restrict any use of the information to criminally investigate or prosecute any alcohol or drug abuse patient.[facility] TownshipIn the event this information is protected by the Federal Confidentiality of Alcohol and Drug Abuse Patient Records regulations: The Federal rules restrict any use of the information to criminally investigate or prosecute any alcohol or drug abuse patient.[facility] TownshipIn the event this information is protected by the Federal Confidentiality of Alcohol and Drug Abuse Patient Records regulations: The Federal rules restrict any use of the information to criminally investigate or prosecute any alcohol or drug abuse patient.[facility] TownshipIn the event this information is protected by the Federal Confidentiality of Alcohol and Drug Abuse Patient Records regulations: The Federal rules restrict any use of the information to criminally investigate or prosecute any alcohol or drug abuse patient.[facility] TownshipIn the event this information is protected by the Federal Confidentiality of Alcohol and Drug Abuse Patient Records regulations: The Federal rules restrict any use of the information to criminally investigate or prosecute any alcohol or drug abuse patient.[facility] TownshipIn the event this information is protected by the Federal Confidentiality of Alcohol and Drug Abuse Patient Records regulations: The Federal rules restrict any use of the information to criminally investigate or prosecute any alcohol or drug abuse patient.[facility] TownshipIn the event this information is protected by the Federal Confidentiality of Alcohol and Drug Abuse Patient Records regulations: The Federal rules restrict any use of the information to criminally investigate or prosecute any alcohol or drug abuse patient.[facility] TownshipIn the event this information is protected by the Federal Confidentiality of Alcohol and Drug Abuse Patient Records regulations: The Federal rules restrict any use of the information to criminally investigate or prosecute any alcohol or drug abuse patient.[facility] Reason for Visit (unrecogniz ed section and content) Reason Comments Results Reason Comments Release Of Medical Records Reason Comments Outside Labs Results VPA Reason Comments Forms Review results and o rders Reason Comments Outside Lab Results PHENYTOIN Reason Comments New Patient Epilepsy Reason Comments Outside Lab Results [facility] Reason Comments general seizure monitoring r eport Reason Comments Seizures Reason Comments Received Outside Medical Records Seizure monitoring report Reason Onset Date Comments Refill Request 11/11/2024 Reason Comments 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 Pt from [facility] for 38 minute witnessed seizure this morning. Vomiting during seizure, pt on 4L NC, room air @ baseline. Hx SZ, pt states her last one was 5 months ago. Given depakote 500 mg @ 1228, 4 mg zofran @ 1228, and dilantin 1500 mg @ 1350. A&O x 2 with garbled speech at baseline. Specialty Diagnoses / Procedures Referred By Contac t Referred To Contact Diagnoses Breakthrough seizure (CMS/HCC) (HCC) Sepsis due to urinary tract infection (HCC) Fever, unspecified fever cause Procedures . Fazal Garza MD [address] [place] [address] Phone: tel: fax: [facility] Epilepsy Monitoring [facility] [address] [place] [phone] Phone: tel: fax: Referral ID Status Reason Start Date Expiration Date Visits Re quested Visits Authorized [id number] 1 1 Reason Comments Outside Lab Results lacosamide Reason Comments Orders [facility] Reason Comments Medication Problem Nayzilam - Medicatio n Not Working Reason Comments Follow Up Epilepsy Reason Comments Medication Problem Lacosamide Reason Comments New Patient Specialty Diagnoses / Procedures Referred By Contac t Referred To Contact Rheumatology Diagnoses Osteoporosis without current pathological fracture, unspecified osteoporosis type Procedures CONSULT TO RHEUM/IMMUN DISEASE OFFICE/OUTPATIENT [facility] 60 MINUTES Jayant Jimenez MD [address] [place] [address] Phone: tel: fax: Referral ID Status Reason Start Date Expiration Date V isits Requested Visits Authorized [id number] Closed PCP Requested Referral 12/01/2024 12/01/2025 1 1 Reason Onset Date Comments SPP Osteoporosis - Treatment Referral 02/26/2025 Teriparatide Insurance Authorization 02/26/2025 Teripara tide PA Submission pending Scheduled Active and Recently Administ ered Medications (unrecognized section and content) Medication Order 12/06/2024 12/07/2024 12/08/2024 cefTRIAXone (Rocephin) 1,000 mg in sodium chloride 0.9 % 50 mL IVPB Mini-Bag Plus (COMPLETED) 1,000 mg, IntraVENous, at 100 mL/hr, Administer over 30 Minutes, Every 24 hours, First dose on Patricia 12/04/24 at 2000, For 4 doses, Mini-Bag Plus bag, Suspected Indication (Select all that apply): Urinary Tract Infection 2053 (New Bag - Provider: Jeanne Avina RN)2123 (Stopped - Provider: Jeanne Avina RN) 2102 (New Bag - Provider: Jeanne Avina RN)2132 (Stopped - Provider: Jeanne Avina RN) cholecalciferol (Vitamin D-3) tablet 2,000 Units 2,000 Units, Oral, Daily, First dose on Patricia 12/04/24 at 0900 0848 (Given - Provider: Fausto Linn LPN) 0928 (Given - Provider: Kaylee Carrasco RN) 0943 (Given - Provider: Adam Pimentel RN) docusate sodium (Colace) capsule 100 mg 100 mg, Oral, Daily, First dose on Patricia 12/04/24 at 0900, Do not crush or break. 0848 (Given - Provider: Fausto Linn LPN) 0928 (Given - Provider: Kaylee Carrasco RN) 0942 (Given - Provider: Adam Pimentel RN) escitalopram (Lexapro) tablet 20 mg 20 mg, Oral, Daily, First dose on Patricia 12/04/24 at 0800 0848 (Given - Provider: Fausto Linn LPN) 0928 (Given - Provider: Kaylee Carrasco RN) 0943 (Given - Provider: Adam Pimentel RN) ethosuximide (Zarontin) capsule 250 mg 250 mg, Oral, 2 times daily, First dose on Patricia 12/04/24 at 0900 0848 (Given - Provider: Fausto Linn LPN)2049 (Given - Provider: Jeanne Avina RN) 09 (Given - Provider: Kaylee Carrasco RN)2311 (Given - Provider: Jeanne Avina RN - Comment: med [facility]) 0944 (Given - Provider: Adam Pimentel RN) furosemide (Lasix) tablet 20 mg 20 mg, Oral, 3 times weekly (Once per day on Sunday), First dose (after last modification) on Sun12/05/24 at 0900 0943 (Given - Provider: Adam Pimentel RN) lacosamide (Vimpat) tablet 100 mg 100 mg, Oral, Every morning, First dose on Sun12/05/24 at 0900, Swallow tablets whole; do not divide. 0848 (Given - Provider: Fausto Linn LPN) 0928 (Given - Provider: Kaylee Carrasco RN) 0942 (Given - Provider: Adam Pimentel RN) lacosamide (Vimpat) tablet 150 mg 150 mg, Oral, Nightly, First dose on Patricia 12/04/24 at 2100, Swallow tablets whole; do not divide. 2049 (Given - Provider: Jeanne Avina RN) 2101 (Given - Provider: Jeanne Avina RN) levothyroxine (Synthroid, Levoxyl) tablet 50 mcg 50 mcg, Oral, Daily before breakfast, First dose on Patricia 12/04/24 at 0600, Tube feeding (TF) interaction, obtain physician order to manage, recommend holding TF for 30 minutes before and after dose. 0517 (Given - Provider: Maria Victoria Zapata RN) 05 (Given - Provider: Jeanne Avina RN) 05 (Given - Provider: Jeanne Avina RN) melatonin tablet 3 mg 3 mg, Oral, Nightly, First dose on Patricia 12/04/24 at 2100 2049 (Given - Provider: Jeanne Avina RN) 2101 (Given - Provider: Jeanne Avina RN) pantoprazole (ProtoNix) EC tablet 40 mg 40 mg, Oral, Daily, First dose on Patricia 12/04/24 at 0800, Do not crush, chew, or split. 0848 (Given - Provider: Fausto Linn LPN) 09 (Given - Provider: Kaylee Carrasco RN) 0942 (Given - Provider: Adam Pimentel, MEGA) potassium chloride (Klor-Con) packet 10 mEq 10 mEq, Oral, Daily, First dose (after last modification) on Sun12/05/24 at 0900, Dissolve each packet in 4 ounces of water = 5 mEq per 1 oz fluid. 0848 (Given - Provider: Fausto Linn LPN) 0927 (Given - Provider: Kaylee Carrasco RN) 0943 (Given - Provider: Adam Pimentel, RN) valproic acid (Depakene) capsule 500 mg 500 mg, Oral, 2 times daily, First dose (after last modification) on Patricia 12/04/24 at 1400 0848 (Given - Provider: Fausto Linn LPN)2049 (Given - Provider: Jeanne Avina RN) 09 (Given - Provider: Kaylee Carrasco RN)2101 (Given - Provider: Jeanne Avina RN) 0943 (Given - Provider: Adam Pimentel RN) PRN Medication Order 12/06/2024 12/07/2024 12/08/2024 acetaminophen (Tylenol) suppository 650 mg(Linked Group 1) 650 mg, Rectal, Every 6 hours PRN, fever, For temp greater than 100.4 F (38 C), Starting on Patricia 12/04/24 at 0122, Administer if oral route cannot be used. Maximum dose of acetaminophen is 4000 mg from all sources in 24 hours. acetaminophen (Tylenol) tablet 650 mg(Linked Group 1) 650 mg, Oral, Every 6 hours PRN, mild pain (1-3), fever, For temp greater than 100.4 F (38 C), Starting on Patricia 12/04/24 at 0122, Maximum dose of acetaminophen is 4000 mg from all sources in 24 hours. albuterol 108 (90 Base) MCG/ACT inhaler 2 puff 2 puff, Inhalation, Every 4 hours PRN, wheezing, Starting on Patricia 12/04/24 at 0502 bisacodyl (Dulcolax) suppository 10 mg 10 mg, Rectal, Daily PRN, constipation, Starting on Patricia 12/04/24 at 0502 ondansetron (Zofran) injection 4 mg(Linked Group 2) 4 mg, IntraVENous, Every 6 hours PRN, nausea, vomiting, Starting on Patricia 12/04/24 at 0122, 1st Line. Give IV if patient is unable to take orally. If inadequate response within 60 minutes, proceed to next-line agent or contact provider if no further options ordered. ondansetron ODT (Zofran-ODT) disintegrating tablet 4 mg(Linked Group 2) 4 mg, Oral, Every 8 hours PRN, nausea, vomiting, Starting on Patricia 12/04/24 at 0122, 1st Line. If inadequate response within 60 minutes, proceed to next-line agent or contact provider if no further options ordered. Patient should allow tablet to dissolve on tongue. Do not remove from blister pack until just before administering. polyethylene glycol (PEG) 3350 (Miralax) packet 17 g 17 g, Oral, Daily PRN, constipation, Starting on Patricia 12/04/24 at 0122, 1st line for treatment of constipation - give scheduled if no bowel movement in past 24 hours. Linked Groups Order Group 1: acetaminophen (Tylenol) tablet 650 mgJump to med 650 mg, Oral, Every 6 hours PRN, mild pain (1-3), fever, For temp greater than 100.4 F (38 C), Starting on Patricia 12/04/24 at 0122, Maximum dose of acetaminophen is 4000 mg from all sources in 24 hours. Or acetaminophen (Tylenol) suppository 650 mgJump to med 650 mg, Rectal, Every 6 hours PRN, fever, For temp greater than 100.4 F (38 C), Starting on Patricia 12/04/24 at 0122, Administer if oral route cannot be used. Maximum dose of acetaminophen is 4000 mg from all sources in 24 hours. Group 2: ondansetron ODT (Zofran-ODT) disintegrating tablet 4 mgJump to med 4 mg, Oral, Every 8 hours PRN, nausea, vomiting, Starting on Patricia 12/04/24 at 0122, 1st Line. If inadequate response within 60 minutes, proceed to next-line agent or contact provider if no further options ordered. Patient should allow tablet to dissolve on tongue. Do not remove from blister pack until just before administering. Or ondansetron (Zofran) injection 4 mgJump to med 4 mg, IntraVENous, Every 6 hours PRN, nausea, vomiting, Starting on Patricia 12/04/24 at 0122, 1st Line. Give IV if patient is unable to take orally. If inadequate response within 60 minutes, proceed to next-line agent or contact provider if no further options ordered. FOR RECORDS PERTAINING TO PATIENTS WHO ARE [...] BE BASED ON THE PRIMARY CLINICAL RECORDS. [facility]. provides no warranty or guarantee of the accuracy or completeness of [phone] in [phone] [id number]
[2025-04-06 10:20] LABS: PTHIN 76 pg/mL (11-61)
== END ==
LOC: OLS.ACH 05:00
PROVIDERS: PCP Internal Medicine; Visit Provider Internal Medicine
DX: E03.9 Hypothyroidism, unspecified (principal)
CPT/HCPCS: 36415; 83970

== ENCOUNTER → 2025-05-27 05:00 | Outpatient (REF) | payer MEDICARE, OTHER, MEDICAID, SELFPAY ==
--- OUTSIDE RECORDS SUMMARY | 2025-05-27 04:25 | XMS RPT_ITS | CCD ---
Author Organization [facility] Care Team Providers Care Loan Reviewer Name Role Phone UNKNOWN, PROVIDER Referring [facility] [place] [facility] Unavailable Tj Peguero Attending Unavailable [facility] [place] Attending Unavailable UNKNOWN, PROVIDER Referring Un[facility] Unavailable [facility] Primary Care Provider [phone] Alek DE SANTIAGO.SMALL CRAFT OPERATOR, Claudia Unavailable [facility] Primary Care Provide r DAMIR MCKEE Referring Unavailable [facility] Primary Care Provider [facility] Primary Care Unavailable FAZAL GARZA Admitting Unavailable DEORAS, SUSAN Consulting Unavailable DENISE HAIR Attending Unavailable Ron SESAY, Todd Primary Care Provider Unavailab gael Velasquez MD, Todd Attending Provider Unavailable Uatsdin Pickens, Apostolic Attending Provider Ruchi shaunna Mckee MD, Dr. Reich Attending Provider Dr. Damir Mckee MD Emergency Provider Dr. Todd Velasquez Sr., DO Primary Care Provider Ron SESAY, Todd Primary Care Provider Unavailab gael Velasquez MD, Todd Attending Provider Unavailable [facility] Primary Care Unavail able JAYANT JIMENEZ Attending Unavailabl e [facility] Primary Care Unavail able JAYANT JIMENEZ Referring Unavailabl e [facility] Primary Care Unavail able JAYANT JIMENEZ Attending Unavailabl TAO Aguilera Admitting Unavailable HAYES NICHOLSON Referring Unavailable [facility] Primary Care Unavail able JUAN JOSE HENDERSON Attending Unavailable ITRAT, AHMED Consulting Unavailable Ron SESAY, Todd Primary Care Provider Unavailab gael Velasquez MD, Todd Attending Provider Unavailable Deperro Sr. , Dr. Brooks Primary Care Provider Ron SESAY, Todd Attending Provider Unavailable LOLITA JAIN Attending Unavailable JAYANT JIMENEZ Referring Unavail[place]VILLE Candelario Primary Care Unavail able Deperro Sr., Todd Primary Care Unavailable Damir Mckee Attending Unavailable Deperro OLS, Todd Attending Unavailable Deperro OLS, Todd Referring Unavailable Deperro OLS, Todd Primary Care Unavailable Deperro OLS, Todd Attending Unavailable Deperro OLS, Todd Primary Care Unavailable Deperro OLS, Todd Primary Care Unavailable [facility] Attending Unaosmel tan Deperro OLS, Todd Attending Unavailable Deperro Sr., [...] Unavailable Deperro Sr., Todd Primary Care Unavailable Hayes Nicholson Attending Unavailable Deperro OLS, Todd Primary Care Unavailable Medications Current Medications Medication Drug Class(es) Dates Sig (Normalized) Sig (Original) albuterol 0.833 mg/ml / ipratropium bromide 0.167 mg/ml inhalation solution (6 sources) Anticholinergic, beta2-Adrenergic Agonist Start: 08-17-2024 take [...] carboxymethylcellulose sodiu m 5 mg/ml ophthalmic solution (9 sources) carboxymethylcel lulose (REFRESH) 0.5 % drop [...] Comment on above: Use in eyes. diazePAM (8 sources) Benzodiazepine Start: 025 End: diazePAM (VALTOCO) 10 mg/spray (0.1 mL) nasal spray Indications: Intractable epilepsy without status epilepticus, unspecified epilepsy type (HCC) Use 1 [place] in the nose as needed for seizures lasting longer than 3 minutes. May repeat dose once after 4 hours based on response and tolerability for a maximum of 2 doses per 24-hour period. 2 Each 1 12/24/2024 06/22/2025 Active docusate sodium 100 mg oral capsule (20 sources) Start: 023 End: docusate sodium (COLACE) 100 mg capsule Take by mouth. 09/18/2023 Active docusate sodium 50 mg / sennosides, snf 8.6 mg oral tablet (2 sources) take [...] Active Start: 09-18-2023 take 1 capsule by [facility] every twelve hours Ethosuximide 250 mg capsule [...] oral tablet (20 sources) Loop Diuretic Start: End: take 1 tablet by mouth once furosemide (LASIX) 20 mg tablet Take 1 tablet by mouth every Sunday, Sunday, and Sunday. 08/20/2024 Active guaifenesin/dextrome thorphan (ROBITUSSIN-DM ORAL) (20 sources) End: guaifenesin/dextromet horphan (ROBITUSSIN-DM ORAL) Take by mouth. 01/15/2025 Discontinued [...] End: 07-15-2025 take 1 tablet by mouth once daily in the morning lacosamide (VIMPAT) 100 mg tab Indications: Intractable epilepsy without status epilepticus, unspecified epilepsy type (HCC) Take 1 tablet by mouth every morning for 180 days. 90 tablet 1 01/16/2025 07/15/2025 Active Start: 12-03-2024 take 1 tablet by julian [...] by mouth once daily in the morning levothyroxine (SYNTHROID) 50 mcg tablet Take 1 tablet by mouth daily at 6 am. 08/20/2024 Active losartan potassium 25 mg oral tablet (20 [...] tablet by mouth once daily at bedtime melatonin 3 mg tablet Take 1 tablet by mouth daily at bedtime. 08/19/2024 Active menthol 0.05 mg/mg topical gel (18 sources) menthol (BIOFREE ZE, MENTHOL,) 5 % topical gel Apply to affected area. Active Menthol 5.8 mg 5 .8 mg. Active Menthol (Cough D rops) 5.8 MG lozenge Dissolve 5.8 mg in the mouth as needed (cough, sore throat). Active midazolam 50 mg/ml nasal spray (20 sources) Benzodiazepine Start: 12-03-2024 Midazolam (Nay zilam) 5 mg/spray (0.1 mL) spray,non-aerosol Active 1 NMA INTRANASAL NEEDED December 03, 2024 1:00am seizure Start: 11-10-2024 End: 02-09-2025 midazolam (NAYZILAM) 5 mg/sp ray (0.1 mL) nasal spray Indications: Intractable epilepsy without status epilepticus, unspecified epilepsy type (HCC) Use 1 [place] in the nose as needed for seizures [...] by mouth d aily at bedtime. sennosides, snf 8.6 mg oral tablet (20 sources) End: 12-04-2024 take 1 tablet by mouth twice daily [...] on above: 1 Enema by RECTAL ro [place] one time only. valproic acid 250 mg oral capsule (20 sources) Mood Stabilizer, Anti-epileptic Agent Start: 12-08-2024 End: 12-08-2025 take 2 capsules by mouth three times daily valproic acid (DEPAKENE) 250 mg capsule Take 500 mg by mouth three times a day. 12/08/2024 12/08/2025 Active Start: 12-08-2024 End: 12-08-2025 take 2 capsules by mouth twice daily valproic acid (Depakene) 250 MG capsule Take 2 capsules (500 mg) by mouth 2 times daily. 120 capsule 11 12/08/2024 12/08/2025 Active Start: 12-04-2024 End: 12-08-2024 take 500 mg by mouth twice daily 500 mg, Oral, 2 times daily, First dose (after last modification) on [facility] 12/04/24 at 1400 Start: 08-20-2024 End: 03-25-2025 [...] 5 01/25/2019 Active take 4 capsules by [facility] three times daily valproic acid (DEPAKENE) 250 [...] Start: 09-18-2023 take 2 tablets by mo [facility] once daily Acetaminophen 325 mg tablet Active 650 mg PO DAILY September 18, 2023 1:00am PAIN Start: 09-18-2023 take 650 mg by mouth once sunny y Acetaminophen Active 650 MG PO DAILY September 18, 2023 12:00am take 2 tablets by mo [facility] every six hours as needed acetaminophen (TYLENOL) 325 mg tablet Take 650 mg by mouth every 6 hours as needed. Active take 2 tablets by [facility] every six hours as needed for fever and pain acetaminophen (Tylenol) 325 MG tablet Take 650 mg by mouth every 6 hours as needed for fever or mild pain (1-3). Do not exceed 3 g/24 hours acetaminophen Active Comment on above: Take 650 mg by mouth every 6 hours as needed. [id number] 200 actuat albuter ol 0.09 mg/actuat metered dose inhaler (20 sources) beta2-Adrenergic Agonist Start: 12-04-2024 End: 12-08-2024 [...] 0900 Start: 09-18-2023 take 1 tablet by julian th once daily Cholecalciferol (Vitamin D3) 50 mcg (2,000 unit) tablet Active 50 ug PO DAILY September 18, 2023 1:00am Cholecalciferol, Vitamin D3, (VITAMIN D-3) 2,000 unit cap Take by mouth. Active take 1 capsule by mo uth once daily cholecalciferol (Vitamin D-3) 50 MCG (2000 UT) capsule Take 2,000 Units by mouth daily. Active Comment on above: Take by mouth. doxycycline hyclate 100 mg oral tablet (6 sources) Tetracycline-class Drug Start: 4 End: 5 take 1 tablet by mouth twice daily Doxycycline Hyclate 100 mg tablet Discontinued 100 mg PO TWICE A DAY August 17, 2024 12:00am December 03, 2024 1:58pm escitalopram 10 mg oral tablet (20 sources) Serotonin Reuptake Inhibitor Start: End: take 20 mg by mouth once daily 20 mg, Oral, Daily, First dose on Patricia 12/04/24 at 0800 Start: 09-18-2023 take 1 tablet by julian th once daily escitalopram oxalate (LEXAPRO) 20 mg tablet Take 1 tablet by mouth once daily. 08/20/2024 Active fluticasone propionate 0.05 mg/actuat metered dose nasal [...] Aerosol ) 44 mcg/actuation HFA aerosol inhaler (9 sources) Start: 09-18-2023 End: 12-03-2024 Fluticasone Propionate [...] once PRN, contrast, Starting on Sun12/03/24 at 2052, For 1 dose loratadine 10 mg oral [...] 2100, For 1 dose polyethylene glycol 3350 73934 mg powder for oral solution (2 sources) [...] 1 tablet by mouth once da [place] potassium chloride (K-TAB) 10 mEq tablet Take 10 mEq by mouth once daily. 09/18/2023 Active Start: 09-18-2023 take 10 mEq by mouth twice ang ly Potassium Chloride Active 10 MEQ PO TWICE A DAY September 18, 2023 12:00am predniSONE 20 mg oral tablet (6 sources) Start: 08-17-2024 End: 12-03-2024 take 1 tablet by mouth twice daily Prednisone 20 mg tablet Discontinued 20 mg PO TWICE A DAY August 17, 2024 12:00am December 03, 2024 1:59pm 50 ml sodium chloride 9 mg/ml injection (4 sources) Start: 12-03-2024 End: 12-03-2024 1,000 mL, IntraVENous, at 1,000 mL/hr, Administer over 1 Hours, Once, On Sun12/03/24 at 2230, For 1 dose 28 actuat teriparatide 0.02 mg/actuat pen injector (4 sources) Parathyroid Hormone Analog Start: 02-25-2025 End: 04-16-2025 inject 20 ug by subcutaneous injection once daily teriparatide (FORTEO) 20 mcg/dose (620mcg/2.48mL) subcutaneous injection Inject 20mcg subcutaneously once daily. 2.48 mL 02/25/2025 04/16/2025 Discontinued Problems Active Problems Problem Classification Problem Date Documented Da te Episodic/Chronic Aspiration pneumonitis; food/vomitus (6 sources) Pneumonitis due to inhalation of food and vomit; 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: [Acute aspiration pneumonitis] 12-11-2024 Episodic Cardiac dysrhythmias (6 sources) ECG: sinus tachycardia; 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: [Tachycardia, unspecified] 12-11-2024 Episodic Deficiency and other anemia (6 sources) Chronic anemia; 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: [Anemia, unspecified] 12-11-2024 [...] epilepsy] Onset: 06-06-2018 08-07-2018 Chronic Essential hypertension (8 sources) Essential hypertension; 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: [Essential (primary) hypertension] Onset: 01-27-2020 07-28-2022 Chronic Fever of unknown origin (4 sources) Fever; 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: [Fever, unspecified] Onset: 12-03-2024 12-03-2024 Episodic Fluid and electrolyte disorders (7 sources) Lactic acidosis; 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: [Lactic acidosis] Onset: 02-27-2025 12-11-2024 Episodic Gastroduodenal ulcer (except hemorrhage) (3 sources) Peptic ulcer; 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: [Peptic ulcer, site unspecified, unspecified as acute or chronic, without hemorrhage or perforation] Onset: 01-27-2020 07-28-2022 Chronic Hypertension with complications and secondary hypertension (1 source) Hypertensive heart disease with heart failure; 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: [Hypertensive heart disease with heart failure] Onset: 02-10-2025 Chronic Malaise and fatigue (1 source) Weakness; 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: [Weakness] Onset: 02-10-2025 Episodic Mood disorders (2 sources) Depressive disorder; 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: [Depression] Onset: 10-26-2020 07-28-2022 Chronic Osteoporosis (8 sources) Osteoporosis; 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: [Age-related osteoporosis without current pathological fracture] Onset: 01-15-2025 12-01-2024 Chronic Other aftercare (2 sources) Long-term current use of drug therapy; 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: [senior care (current) use of other agents affecting estrogen receptors and estrogen levels] 09-24-2024 Episodic Other endocrine disorders (2 sources) Hyperparathyroidism; 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: [Hyperparathyroidism, unspecified] 04-16-2025 Chronic Other gastrointestinal disorders (2 sources) Dysphagia, oropharyngeal phase; 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: [Dysphagia, oropharyngeal phase] Onset: 01-22-2019 Episodic Other hereditary and degenerative nervous system conditions (2 sources) Cerebellar degeneration; 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: [Degenerative disease of nervous system, unspecified] Onset: 10-26-2020 07-28-2022 Chronic Other nervous system disorders (1 source) Metabolic encephalopathy; 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: [Metabolic encephalopathy] Onset: 04-06-2025 Chronic Other nervous system disorders (9 sources) H/O: epilepsy; 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: [Personal history of other diseases of the nervous system and sense organs] 09-18-2023 Episodic Other nutritional; endocrine; and metabolic disorders (20 sources) Obese class I; 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: [Obesity, Class I, BMI 30-34.9] Onset: 08-18-2024 08-18-2024 Chronic Other screening for suspected conditions (not mental disorders or infectious disease) (9 sources) Other specified abnormal findings of blood chemistry; 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: [Patient encounter status] Onset: 06-06-2018 09-24-2024 Episodic Other upper respiratory disease (2 sources) Allergic rhinitis; 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: [Allergic rhinitis, unspecified] Onset: 01-27-2020 07-28-2022 Chronic Other upper respiratory disease (1 source) Allergic rhinitis, unspecified; 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: [Allergic rhinitis, unspecified] Onset: 09-12-2024 Chronic Residual codes; unclassified (1 source) Dependence on wheelchair; 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: [Dependence on wheelchair] 02-25-2025 Chronic Respiratory failure; insufficiency; arrest (adult) (6 sources) Acute hypoxemic respiratory failure; 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: [Acute respiratory failure with hypoxia] 12-11-2024 Episodic Septicemia (except in labor) (8 sources) Sepsis due to urinary tract infection; 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: [Sepsis, unspecified organism] Onset: 12-03-2024 12-03-2024 Episodic Thyroid disorders (13 sources) Hypothyroidism; 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: [Other specified hypothyroidism] Onset: [...] sources) H/O: high risk medication; 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: [Other senior care (current) drug therapy] Onset: 08-07-2018 08-07-2018 Episodic Other aftercare (1 source) 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 other 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 affecting estrogen receptors and estrogen levels; 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: [senior care (current) use of other agents affecting [...] [Dysarthria and anarthria] Onset: 08-07-2018 08-07-2018 Episodic Residual codes; unclassified (2 sources) Dependent edema; 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: [Edema, unspecified] Onset: 01-27-2020 07-28-2022 Episodic Unclassified (1 source) Patient encounter status 11-26-2024 Unclassified (1 source) Long-term current use of drug therapy 11-26-2024 Results Test Name Value Interpretation Reference Range Facility [facility] 04-16-2025 [facility] Telephone (RHWSTR) -------- LULÚYOGESHKATHERYN ([id number]) 1945 F Date Time Provider Department 04/16/25 LOLITA JAIN RHWSTR During your visit today, we recorded the following information about you: Lolita Jain PA-C 04/16/2025 9:36 AM Signed Received outside medical records from [facility] dated 04/06/25 PTH level is 76 The PTH has worsened despite increasing patient calcium and vitiatin D Called and spoke with Alem, nurse for Katheryn. I will need patient to see Endocrinology regarding this before finalizing her osteoporosis treatment, but likely will not be able to use Forteo as this also works using the parathyroid hormone. An alternative medication would be EVENITY injections. These are injections in both arms, once a month for 12 months, followed by an IV Reclast infusion. They are given in the office. EVENITY has different risks including increased risk of major cardiovascular events such as heart attack and stroke. We don't use in patients who have had [place]/Stroke in the past year. She will review with Katheryn and ERNESTINE and let us know preference moving forward regarding treatment. Thanks KG Please fax this phone encounter to [phone] for their records Shavonne Sinclair RN 04/16/2025 10:19 AM Signed Telephone encounter faxed. Shavonne Sinclair RN Allergies As of Date: 04/16/2025 (No Known Allergies) Date Reviewed: 02/25/2025 Reviewed by: Jacki Sumner MA - Fully Assessed Primary Visit Diagnosis:Hyperparathyro id (HCC) [E21.3] Other Visit Diagnosis:Elevated parathyroid hormone [R79.89] Order(s):CONSULT TO ENDOCRINOLOGY [9008] Order #: [id number]: 1 FUTURE Prescriptions as of 04/16/2025 - insulin needles, DISPOSABLE, (BD INSULIN PEN NEEDLE UF) 31 gauge x 5/16" Use 1 pen needle once daily as directed for Teriparatide injections - lacosamide (VIMPAT) 100 mg tab Take [...] mg/spray (0.1 mL) nasal spray Use 1 [place] in the nose as needed for seizures [...] as needed. 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 Encounter Status:Closed by SHAVONNE SINCLAIR on 04/16/25 Normal [facility] PTHINon 04-06-2025 PTH 76 pg/mL High 11-61 [facility] Comment on above: Order Comment: 211.2 Performed By: #### L 3410.9992, L500.2500, L506.1001, L509.1000, L501.2300, L501.5200, L3100.3450 #### [facility] [address] [place], [address] L3410.9992on 03-14-2025 [facility] Normal . [facility] Comment on above: Order Comment: 211.2 SERUM ROOM [id number] Result Comment: Test Ordered: [id number] Lacosamide Test(s) [id number]-[id number] was developed and its performance characteristics determined by [facility]. It has not been cleared or approved by the Food and Drug Administration. Lacosamide 8.0 ug/mL BN Reference Range: 5.0-10.0 Limit of Detection 0.5 Mean plasma concentrations following maintenance dose 200 mg/day 4.99 +/- 2.51 ug/mL 400 mg/day 9.35 +/- 4.22 ug/mL 600 mg/day 12.46 +/- 5.60 ug/mL Performed at: - [facility] [id number] Forward Air Controller/Air Officer: Nahed Naidu MD, Phone: [phone] Performed at: - [facility] [id number] Forward Air Controller/Air Officer: Haris Peraza PhD, Phone: [phone] Performed By: #### L 503.6005 #### [facility] [address] [place], [address] Serum or plasma valproate me asurement (mass/volume)Ordered By: Todd Velasquez on 03-10-2025 Valproate [Mass/Vol] 91 ug/mL 50-100 [facility] Comment on above: Valproic Acid concen trations >100 ug/mL are potentially toxic. Valproic Acid (Depakene) Lev maribell 03-10-2025 VALPROIC ACID 91 ug/mL Normal 50-100 [facility] Comment on above: Order Comment: 211.2 Result Comment: Valp roic Acid concentrations >100 ug/mL are potentially toxic. Performed By: #### L 503.6005 #### [facility] [address] [place], [address] Anion gap in Serum or Plasma Ordered By: Todd Velasquez on 03-04-2025 Anion gap [Moles/Vol] 9 mmol/L 5-15 [facility] BUN/creatinine ratioOrdered By: Todd Velasquez on 03-04-2025 Urea nitrogen/Creatinine [Mass ratio] 22.8 mg/mg High 10-20 [facility] Bilirubin, totalOrdered By: Todd Velasquez on 03-04-2025 Bilirubin [Mass/Vol] 0.21 mg/dL 0.00-1.30 [facility] CBC-Complete Blood Cnt No Di ffon 03-04-2025 Erythrocyte distribution width (RBC) [Ratio] 14.5 % Normal 11.6-14.6 [facility] Comment on above: Order Comment: 211-2 Performed By: #### L 100.0100 #### [facility] [address] [place], [address] Hematocrit (Bld) [Volume fraction] 30.2 % Low 37-47 [facility] Comment on above: Order Comment: 211-2 Performed By: #### L 100.0100 #### [facility] [address] [place], [address] Hemoglobin (Bld) [Mass/Vol] 9.6 g/dL Low 12.0-15.0 [facility] Comment on above: Order Comment: 211-2 Performed By: #### L 100.0100 #### [facility] [address] [place], [address] MCH (RBC) [Entitic mass] 28.2 pg Normal 27.0-32.0 [facility] Comment on above: Order Comment: 211-2 Performed By: #### L 100.0100 #### [facility] [address] [place], [address] MCHC (RBC) [Mass/Vol] 31.8 g/dL Low 32-36 [facility] Comment on above: Order Comment: 211-2 Performed By: #### L 100.0100 #### [facility] [address] [place], [address] MCV (RBC) [Entitic vol] 88.6 fL Normal 81-99 [facility] Comment on above: Order Comment: 211-2 Performed By: #### L 100.0100 #### [facility] [address] [place], [address] Platelet mean volume (Bld) [Entitic vol] 12.1 fL High 6.2-12.0 [facility] Comment on above: Order Comment: 211-2 Performed By: #### L 100.0100 #### [facility] [address] [place], [address] Platelets (Bld) [#/Vol] 186 10*3/uL Normal 150-450 [facility] Comment on above: Order Comment: 211-2 Performed By: #### L 100.0100 #### [facility] [address] [place] [place], [address] RBC (Bld) [#/Vol] 3.41 10*6/uL Low 4.2-5.4 [facility] Comment on above: Order Comment: 211-2 Performed By: #### L 100.0100 #### [facility] [address] [place], [address] RDW SD 46.7 fl High 35.1-43.9 [facility] Comment on above: Order Comment: 211-2 Performed By: #### L 100.0100 #### [facility] [address] [place], [address] WBC (Bld) [#/Vol] 7.4 10*3/uL Normal 4.4-11.0 [facility] Comment on above: Order Comment: 211-2 Performed By: #### L 100.0100 #### [facility] [address] [place], [address] CNPNon 03-04-2025 CNPN Telephone (WSTR) -------- KATHERYN CHINO ([id number]) 1945 F Date Time Provider Department 03/04/25 LOLITA JAIN [facility] During your visit today, we recorded the following information about you: Lolita Jain PA-C 03/04/2025 4:50 PM Signed Labs dated 02/27/[address] [facility] CTX 197 SPEP - normal limits, no Mspike More labs to come Lolita Jain PA-C 03/05/2025 5:00 PM Signed Addtional labs: S Protein electrophoresis normal, no MSpike Ionized calcium 1.27 PTH 68 (high, ref 11-61) Phos 3.7 Mg 2.2 BMP Renal function Cr0.72 BUN 22 (H) Calcium 9.5 Vitamain D 46.9 Lolita Jain PA-C 03/05/2025 5:02 PM Signed Please call fpc. She has elevated PTH. We should hold off on the Forteo until I can review with my colleague. Will reach out next week with additional recommendations. ANABELL Velazquez Amy M, MA 03/06/2025 9:08 AM Signed I called and spoke with Katia at [facility]. Message from Lolita Jain PA-C given and Katia verbalized understanding. Mary Ronquillo LPN 03/17/2025 2:25 PM Signed [facility] calling to see if there has been any updates regarding the Forteo or if there are any alternatives we should consider due to cost? Appears that [facility] did get precert approved through February 2027 and were waiting to contact SNF due to PTH. ADIA Wilson Kaitlyn, PA-C [...] called and spoke with YVONNE Amaya at [facility]. Message given to her from provider and [...] plan to move forward with Forteo. Shavonne Sinclair RN 03/23/2025 3:15 PM Signed Called and gave below message and orders to staff nurse at [facility]. Orders read back. MEGA Mast Danelle, RN 04/15/2025 10:25 AM Signed PTH was drawn 04/06/25. detention staff to be faxing results to office. Shavonne Sinclair RN Allergies As of Date: 03/04/2025 (No Known Allergies) Date Reviewed: 02/25/2025 Reviewed by: Jacki Sumner MA - Fully Assessed Reason for Visit: Received Outside Medical Records [[id number]] Primary Visit Diagnosis:Osteoporosis without current pathological fracture, unspecified osteoporosis type [M81.0] Other Visit Diagnosis:Elevated parathyroid hormone [R79.89] Order(s):PTH INTACT [SQPTHI] Order #: [id number] FUTURE Prescriptions as of 04/15/2025 - insulin needles, DISPOSABLE, (BD INSULIN PEN [...] mg/spray (0.1 mL) nasal spray Use 1 [place] in the nose as needed for seizures [...] by mouth two times a day. - fu (more content not included)... Normal [facility] Carbon dioxide, total [Moles /volume] in Central venous bloodOrdered By: Todd Velasquez on 03-04-2025 CO2 [Moles/Vol] 24.0 mmol/L 21.0-32.0 [facility] Chloride assayOrdered By: Whitley on 03-04-2025 Chloride [Moles/Vol] 107 mmol/L 98-108 [facility] Comprehensive Metabolic Prof ilon 03-04-2025 Albumin [Mass/Vol] 3.7 g/dL Normal 3.4-4.8 [facility] Comment on above: Order Comment: Performed By: #### L 100.0100 #### [facility] [address] [place], [place], [id number] Albumin/Globulin [Mass ratio] 1.2 {ratio} Normal 0.9-2.4 [facility] Comment on above: Order Comment: Performed By: #### L 100.0100 #### [facility] [address] [place], [address] ALK PHOS 84 U/L Normal 35-104 [facility] Comment on above: Order Comment: 211-2 Performed By: #### L 100.0100 #### [facility] [address] [place], [address] ALT [Catalytic activity/Vol] 6 U/L Normal <=34 [facility] Comment on above: Order Comment: 211-2 Performed By: #### L 100.0100 #### [facility] [address] [place], [address] AST [Catalytic activity/Vol] 22 U/L Normal <=31 [facility] Comment on above: Order Comment: 211-2 Performed By: #### L 100.0100 #### [facility] [address] [place], [address] Bilirubin [Mass/Vol] 0.21 mg/dL Normal 0.00-1.30 [facility] Comment on above: Order Comment: 211-2 Performed By: #### L 100.0100 #### [facility] [address] [place], [address] BUN/CRE 22.8 RATIO High 10-20 [facility] Comment on above: Order Comment: 211-2 Performed By: #### L 100.0100 #### [facility] [address] [place], [address] Calcium [Mass/Vol] 9.1 mg/dL Normal 7.6-11.0 [facility] Comment on above: Order Comment: 211-2 Performed By: #### L 100.0100 #### [facility] [address] [place], [address] Chloride [Moles/Vol] 107 mmol/L Normal 98-108 [facility] Comment on above: Order Comment: 211-2 Performed By: #### L 100.0100 #### [facility] [address] [place], [address] CO2 [Moles/Vol] 24.0 mmol/L Normal 21.0-32.0 [facility] Comment on above: Order Comment: 211-2 Performed By: #### L 100.0100 #### [facility] [address] [place], [address] Creatinine [Mass/Vol] 0.74 mg/dL Normal 0.70-1.20 [facility] Comment on above: Order Comment: 211-2 Performed By: #### L 100.0100 #### [facility] [address] [place], [address] GAP 9 Normal 5-15 [facility] Comment on above: Order Comment: 211-2 Performed By: #### L 100.0100 #### [facility] [address] [place], [address] GFR/1.73 sq M.predicted among non-blacks MDRD (S/P/Bld) [Vol rate/Area] 83 mL/min/{1.73_m2} Normal >60 [facility] Comment on above: Order Comment: -2 Result Comment: mL/m in/1.73m2 CKD-EPI Creatinine Equation (2020) Performed By: #### L 100.0100 #### [facility] [address] [place], [address] Globulin (S) [Mass/Vol] 3.1 g/dL Normal 2.2-4.2 [facility] Comment on above: Order Comment: 211-2 Performed By: #### L 100.0100 #### [facility] [address] [place], [address] Glucose [Mass/Vol] 93 mg/dL Normal 70-99 [facility] Comment on above: Order Comment: 211-2 Performed By: #### L 100.0100 #### [facility] [address] [place], [address] Potassium [Moles/Vol] 4.9 mmol/L Normal 3.3-5.1 [facility] Comment on above: Order Comment: 211-2 Performed By: #### L 100.0100 #### [facility] [address] [place], [address] Sodium [Moles/Vol] 140 mmol/L Normal 133-145 [facility] Comment on above: Order Comment: 211-2 Performed By: #### L 100.0100 #### [facility] [address] [place], [address] T PROT 6.7 g/dL Normal 5.9-8.4 [facility] Comment on above: Order Comment: 211-2 Performed By: #### L 100.0100 #### [facility] [address] [place], [address] Urea nitrogen [Mass/Vol] 17 mg/dL Normal 4-19 [facility] Comment on above: Order Comment: 211-2 Performed By: #### L 100.0100 #### [facility] [address] [place], [address] Erythrocyte distribution wid th ratioOrdered By: Todd Velasquez on 03-04-2025 Erythrocyte distribution width (RBC) [Ratio] 14.5 % 11.6-14.6 [facility] Erythrocyte distribution wid th standard deviationOrdered By: Todd Velasquez on 03-04-2025 Erythrocyte distribution width (RBC) [Ratio] 46.7 fl High 35.1-43.9 [facility] Glomerular filtration rate ( GFR) estimation/1.73 sq m using serum, plasma, or whole bOrdered By: Todd Velasquez on 03-04-2025 GFR/1.73 sq M.predicted among non-blacks MDRD (S/P/Bld) [Vol rate/Area] 83 mL/min/{1.73_m2} >60 [facility] Comment on above: mL/min/1.73m2 CKD-EP I Creatinine Equation (2020) Hematocrit Auto (Bld) [Volum e fraction]Ordered By: Todd Velasquez on 03-04-2025 Hematocrit (Bld) [Volume fraction] 30.2 % Low 37-47 [facility] Hemoglobin measurementOrdere d By: Todd Velasquez on 03-04-2025 Hemoglobin (Bld) [Mass/Vol] 9.6 g/dL Low 12.0-15.0 [facility] - Chemistry and C hemistry - challengeOrdered By: Todd Velasquez on 03-04-2025 AST [Catalytic activity/Vol] 22 U/L <32 [facility] MCV (mean corpuscular volume ) determinationOrdered By: Todd Velasquez on 03-04-2025 MCV (RBC) [Entitic vol] 88.6 fL 81-99 [facility] Mean corpuscular hemoglobin (MCH) determinationOrdered By: Todd Velasquez on 03-04-2025 MCH (RBC) [Entitic mass] 28.2 pg 27.0-32.0 [facility] Mean corpuscular hemoglobin concentration (MCHC) determinationOrdered By: Todd Velasquze on 03-04-2025 MCHC (RBC) [Mass/Vol] 31.8 g/dL Low 32-36 [facility] Mean platelet volume determi nationOrdered By: Todd Velasquez on 03-04-2025 Platelet mean volume (Bld) [Entitic vol] 12.1 fL High 6.2-12.0 [facility] Platelet countOrdered By: Whitley on 03-04-2025 Platelets (Bld) [#/Vol] 186 10*3/uL 150-450 [facility] Potassium measurement (mass/ volume)Ordered By: Todd Velasquez on 03-04-2025 Potassium (Unsp spec) [Mass/Vol] 4.9 mmol/L 3.3-5.1 [facility] RBC Auto (Bld) [#/Vol]Ordere d By: Todd Velasquez on 03-04-2025 RBC (Bld) [#/Vol] 3.41 10*6/uL Low 4.2-5.4 [facility] Serum creatinine measurement (mass/volume)Ordered By: Todd Velasquez on 03-04-2025 Creatinine [Mass/Vol] 0.74 mg/dL 0.70-1.20 [facility] Serum globulin measurementOr dered By: Todd Velasquez on 03-04-2025 Globulin (S) [Mass/Vol] 3.1 g/dL 2.2-4.2 [facility] Serum glucose measurement (m ass/volume)Ordered By: Todd Velasquez on 03-04-2025 Glucose [Mass/Vol] 93 mg/dL 70-99 [facility] Serum or plasma alanine ignacio otransferase (ALT) measurementOrdered By: Todd Velasquez on 03-04-2025 ALT [Catalytic activity/Vol] 6 U/L <35 [facility] Serum or plasma albumin jacob urement (mass/volume)Ordered By: Todd Velasquez on 03-04-2025 Albumin [Mass/Vol] 3.7 g/dL 3.4-4.8 [facility] Serum or plasma albumin/glob ulin mass ratioOrdered By: Todd Velasquez on 03-04-2025 Albumin/Globulin [Mass ratio] 1.2 {ratio} 0.9-2.4 [facility] Serum or plasma alkaline phillip sphatase measurementOrdered By: Todd Velasquez on 03-04-2025 ALP [Catalytic activity/Vol] 84 U/L 35-104 [facility] Serum or plasma calcium jacob urement (mass/volume)Ordered By: Todd Velasquez on 03-04-2025 Calcium [Mass/Vol] 9.1 mg/dL 7.6-11.0 [facility] Serum or plasma urea nitroge n measurement (mass/volume)Ordered By: Todd Velasquez on 03-04-2025 Urea nitrogen [Mass/Vol] 17 mg/dL 4-19 [facility] Sodium levelOrdered By: Todd Velasquez on 03-04-2025 Sodium [Moles/Vol] 140 mmol/L 133-145 [facility] Total proteinOrdered By: Ignacia Velasquez on 03-04-2025 Protein [Mass/Vol] 6.7 g/dL 5.9-8.4 [facility] White blood cell (WBC) count Ordered By: Todd Velasquez on 03-04-2025 WBC (Bld) [#/Vol] 7.4 10*3/uL 4.4-11.0 [facility] L3410.9992on 03-02-2025 [facility] COMMENT Normal . [facility] Comment on above: Order Comment: 211.2 SERUM [id number] Result Comment: Test Ordered: [id number] C-Telopeptide, Serum C-Telopeptide, Serum 197 pg/mL ES Reference Range: . Reference Range: Premenopausal Women: 34 - 635 Postmenopausal Women: 34 - 1037 Performed at: [facility] [address] [place] [id number] Forward Air Controller/Air Officer: Felix Bonilla MD, Phone: [phone] Performed at: [facility] [address] [id number] Forward Air Controller/Air Officer: Haris Peraza PhD, Phone: [phone] Performed By: #### L 100.0100 #### [facility] [address] [place], [place], [id number] Protein Electroph, Son 03-02 Albumin [Mass/Vol] 3.2 g/dL Normal 2.9-4.4 [facility] Comment on above: Order Comment: 211.2 Performed By: #### L 3410.9992, L500.2500, L506.1001, L509.1000, L501.2300, L501.5200, L3100.3450 #### [facility] [address] [place], [address] Albumin/Globulin [Mass ratio] 0.9 {ratio} Normal 0.7-1.7 [facility] Comment on above: Order Comment: 211.2 Performed By: #### L 3410.9992, L500.2500, L506.1001, L509.1000, L501.2300, L501.5200, L3100.3450 #### [facility] [address] [place], [address] (009) ALPHA-1 GLOBUL 0.2 g/dL Normal 0.0-0.4 [facility] Comment on above: Order Comment: 211.2 Performed By: #### L 3410.9992, L500.2500, L506.1001, L509.1000, L501.2300, L501.5200, L3100.3450 #### [facility] [address] [place], [address] ALPHA-2 GLOBUL 0.8 g/dL Normal 0.4-1.0 [facility] Comment on above: Order Comment: 211.2 Performed By: #### L 3410.9992, L500.2500, L506.1001, L509.1000, L501.2300, L501.5200, L3100.3450 #### [facility] [address] [place], [address] BETA GLOBULIN 1.2 g/dL Normal 0.7-1.3 [facility] Comment on above: Order Comment: 211.2 Performed By: #### L 3410.9992, L500.2500, L506.1001, L509.1000, L501.2300, L501.5200, L3100.3450 #### [facility] [address] [place], [address] GAMMA GLOBULIN 1.3 g/dL Normal 0.4-1.8 [facility] Comment on above: Order Comment: 211.2 Performed By: #### L 3410.9992, L500.2500, L506.1001, L509.1000, L501.2300, L501.5200, L3100.3450 #### [facility] [address] [place], [address] Globulin (S) [Mass/Vol] 3.5 g/dL Normal 2.2-3.9 [facility] Comment on above: Order Comment: 211.2 Performed By: #### L 3410.9992, L500.2500, L506.1001, L509.1000, L501.2300, L501.5200, L3100.3450 #### [facility] [address] [place], [place], [id number] INTERPRETATION Comment Normal . [facility] Comment on above: Order Comment: .2 Result Comment: Prot ein electrophoresis scan will follow via computer, mail, or jewish thought professor delivery. Performed By: #### L 3410.9992, L500.2500, L506.1001, L509.1000, L501.2300, L501.5200, L3100.3450 #### [facility] [address] [place], [place], [address] M-SPIKE Not Observed Normal Not Observed [facility] Comment on above: Order Comment: . Performed By: #### L 3410.9992, L500.2500, L506.1001, L509.1000, L501.2300, L501.5200, L3100.3450 #### [facility] [address] [place], [place], [id number] NOTE: Comment Normal . [facility] Comment on above: Order Comment: .2 Result Comment: The SPE pattern appears unremarkable. Evidence of monoclonal protein is not apparent. Performed at: [address] [id number] Forward Air Controller/Air Officer: Haris Peraza PhD, Phone: [phone] Performed By: #### L 3410.9992, L500.2500, L506.1001, L509.1000, L501.2300, L501.5200, L3100.3450 #### [facility] [address] [place], [place], [address] Protein [Mass/Vol] 6.7 g/dL Normal 6.0-8.5 [facility] Comment on above: Order Comment: Performed By: #### L 3410.9992, L500.2500, L506.1001, L509.1000, L501.2300, L501.5200, L3100.3450 #### [facility] [address] [place], [address] Albumin Elph [Mass/Vol]Order ed By: Todd Velasquez on 02-27-2025 Albumin [Mass/Vol] 3.2 g/dL 2.9-4.4 [facility] Anion gap in Serum or Plasma Ordered By: Todd Velasquez on 02-27-2025 Anion gap [Moles/Vol] 10 mmol/L 5-15 [facility] BUN/creatinine ratioOrdered By: Todd Velasquez on 02-27-2025 Urea nitrogen/Creatinine [Mass ratio] 30.7 mg/mg High - [facility] Basic Metabolic Profile (BMP )on 02-27-2025 BUN/CRE 30.7 RATIO High - [facility] Comment on above: Order Comment: 211.2 Performed By: #### L 3410.9992, L500.2500, L506.1001, L509.1000, L501.2300, L501.5200, L3100.3450 #### [facility] [address] [place], [address] Calcium [Mass/Vol] 9.5 mg/dL Normal 7.6-11.0 [facility] Comment on above: Order Comment: 211.2 Performed By: #### L 3410.9992, L500.2500, L506.1001, L509.1000, L501.2300, L501.5200, L3100.3450 #### [facility] [address] [place], [address] Chloride [Moles/Vol] 106 mmol/L Normal 98-108 [facility] Comment on above: Order Comment: 211.2 Performed By: #### L 3410.9992, L500.2500, L506.1001, L509.1000, L501.2300, L501.5200, L3100.3450 #### [facility] [address] [place], [address] CO2 [Moles/Vol] 21.8 mmol/L Normal 21.0-32.0 [facility] Comment on above: Order Comment: 211.2 Performed By: #### L 3410.9992, L500.2500, L506.1001, L509.1000, L501.2300, L501.5200, L3100.3450 #### [facility] [address] [place], [address] Creatinine [Mass/Vol] 0.72 mg/dL Normal 0.70-1.20 [facility] Comment on above: Order Comment: 211.2 Performed By: #### L 3410.9992, L500.2500, L506.1001, L509.1000, L501.2300, L501.5200, L3100.3450 #### [facility] [address] [place], [place], [id number] GAP 10 Normal 5-15 [facility] Comment on above: Order Comment: 211.2 Performed By: #### L 3410.9992, L500.2500, L506.1001, L509.1000, L501.2300, L501.5200, L3100.3450 #### [facility] [address] [place], [address] GFR/1.73 sq M.predicted among non-blacks MDRD (S/P/Bld) [Vol rate/Area] 86 mL/min/{1.73_m2} Normal >60 [facility] Comment on above: Order Comment: 211.2 Result Comment: mL/m in/1.73m2 CKD-EPI Creatinine Equation (2020) Performed By: #### L 3410.9992, L500.2500, L506.1001, L509.1000, L501.2300, L501.5200, L3100.3450 #### [facility] [address] [place], [address] Glucose [Mass/Vol] 92 mg/dL Normal 70-99 [facility] Comment on above: Order Comment: 211.2 Performed By: #### L 3410.9992, L500.2500, L506.1001, L509.1000, L501.2300, L501.5200, L3100.3450 #### [facility] [address] [place], [address] Potassium [Moles/Vol] 4.7 mmol/L Normal 3.3-5.1 [facility] Comment on above: Order Comment: 211.2 Performed By: #### L 3410.9992, L500.2500, L506.1001, L509.1000, L501.2300, L501.5200, L3100.3450 #### [facility] [address] [place], [address] Sodium [Moles/Vol] 138 mmol/L Normal 133-145 [facility] Comment on above: Order Comment: 211.2 Performed By: #### L 3410.9992, L500.2500, L506.1001, L509.1000, L501.2300, L501.5200, L3100.3450 #### [facility] [address] [place], [address] Urea nitrogen [Mass/Vol] 22 mg/dL High 4-19 [facility] Comment on above: Order Comment: 211.2 Performed By: #### L 3410.9992, L500.2500, L506.1001, L509.1000, L501.2300, L501.5200, L3100.3450 #### [facility] [address] [place], [address] Carbon dioxide, total [Moles /volume] in Central venous bloodOrdered By: Todd Velasquez on 02-27-2025 CO2 [Moles/Vol] 21.8 mmol/L 21.0-32.0 [facility] Chloride assayOrdered By: Whitley on 02-27-2025 Chloride [Moles/Vol] 106 mmol/L 98-108 [facility] Glomerular filtration rate ( GFR) estimation/1.73 sq m using serum, plasma, or whole bOrdered By: Todd Velasquez on 02-27-2025 GFR/1.73 sq M.predicted among non-blacks MDRD (S/P/Bld) [Vol rate/Area] 86 mL/min/{1.73_m2} >60 [facility] Comment on above: mL/min/1.73m2 CKD-EP I Creatinine Equation (2020) L501.2276on 02-27-2025 Ionized Calcium 1.27 mmol/L Normal 1.09-1.30 [facility] Comment on above: Performed By: #### L 503.6005 #### [facility] [address] [facility] [place], [place], [address] Magnesiumon 02-27-2025 Magnesium [Mass/Vol] 2.2 mg/dL Normal 1.5-2.2 [facility] Comment on above: Order Comment: 211.2 Performed By: #### L 3410.9992, L500.2500, L506.1001, L509.1000, L501.2300, L501.5200, L3100.3450 #### [facility] [address] [place], [address] Magnesium measurement (mass/ volume)Ordered By: Todd Velasquez on 02-27-2025 Magnesium (Unsp spec) [Mass/Vol] 2.2 mg/dL 1.5-2.2 [facility] No Panel InformationOrdered By: Todd Velasquez on 02-27-2025 Addendum Document Comment . [facility] Comment on above: The SPE pattern appe ars unremarkable. Evidence ofmonoclonal protein is not apparent.Performed at: - [address] [id number] Director: Haris Peraza PhD, Phone: [phone] PTHINon 02-27-2025 PTH 68 pg/mL High 11-61 [facility] Comment on above: Performed By: #### L 3410.9992, L500.2500, L506.1001, L509.1000, L501.2300, L501.5200, L3100.3450 #### [facility] [address] [place], [address] Phosphoruson 02-27-2025 Phosphate [Mass/Vol] 3.7 mg/dL Normal 2.7-4.5 [facility] Comment on above: Order Comment: 211.2 Performed By: #### L 3410.9992, L500.2500, L506.1001, L509.1000, L501.2300, L501.5200, L3100.3450 #### [facility] [address] [place], [place], [address] Potassium measurement (mass/ volume)Ordered By: Todd Velasquez on 02-27-2025 Potassium (Unsp spec) [Mass/Vol] 4.7 mmol/L 3.3-5.1 [facility] Protein Fractions Elph [Inte rp]Ordered By: Todd Velasquez on 02-27-2025 Protein Fractions [Interp] Comment . [facility] Comment on above: Protein electrophore sis scan will follow via computer,mail, or jewish thought professor delivery. Serum albumin to globulin ra millicent by protein electrophoresisOrdered By: Todd Velasquez on 02-27-2025 Albumin/Globulin Elph [Mass ratio] 0.9 0.7-1.7 [facility] Serum creatinine measurement (mass/volume)Ordered By: Todd Velasquez on 02-27-2025 Creatinine [Mass/Vol] 0.72 mg/dL 0.70-1.20 [facility] Serum globulin measurement ( mass/volume)Ordered By: Todd Velasquez on 02-27-2025 Globulin (S) [Mass/Vol] 3.5 g/dL 2.2-3.9 [facility] Serum glucose measurement (m ass/volume)Ordered By: Todd Velasquez on 02-27-2025 Glucose [Mass/Vol] 92 mg/dL 70-99 [facility] Serum or plasma beta globuli n measurement by electrophoresis (mass/volume)Ordered By: Todd Velasquez on 02-27-2025 Beta globulin Elph [Mass/Vol] 1.2 g/dL 0.7-1.3 [facility] Serum or plasma calcium jacob urement (mass/volume)Ordered By: Todd Velasquez on 02-27-2025 Calcium [Mass/Vol] 9.5 mg/dL 7.6-11.0 [facility] Serum or plasma protein jacob urement (mass/volume)Ordered By: Todd Velasquez on 02-27-2025 Protein [Mass/Vol] 6.7 g/dL 6.0-8.5 [facility] Serum or plasma protein mono clonal measurement by electrophoresis (mass/volume)Ordered By: Todd Velasquez on 02-27-2025 Protein.monoclonal Elph [Mass/Vol] Not Observed g/dL Not Observed [facility] Serum or plasma urea nitroge n measurement (mass/volume)Ordered By: Todd Velasquez on 02-27-2025 Urea nitrogen [Mass/Vol] 22 mg/dL High 4-19 [facility] Sodium levelOrdered By: Todd Velasquez on 02-27-2025 Sodium [Moles/Vol] 138 mmol/L 133-145 [facility] Vitamin D,25 Hydroxyon 02-27 Vitamin D 25-OH 46.9 ng/mL Normal 30-100 [facility] Comment on above: Order Comment: 211.2 Result Comment: Valery min D Status Deficiency: <20 ng/mL (50nmol/L) Insufficiency: 20-30 ng/mL (50-75 nmol/L) Sufficiency: 30-100 ng/mL (75-250 nmol/L) Toxicity: >100 ng/mL (>250 nmol/L) Performed By: #### L 3410.9992, L500.2500, L506.1001, L509.1000, L501.2300, L501.5200, L3100.3450 #### [facility] [address] [place], [address] [facility] ([facility]STR) -------- KATHERYN CHINO ([id number]) 1945 F Date Time Provider Department 02/26/25 LOLITA JAIN During your visit today, we recorded the following information about you: Felipa Zuñiga LPN 02/26/2025 11:50 AM Signed Bill from [facility] called into office requesting clarification of calcium citrate supplement. Per office note SHILO velazquez states "The recommendation is 9419-4115 mg of calcium daily between diet and supplement. If she continues to eat 3 servings of dairy per day, I recommend additional 600 mg daily via calcium citrate supplement. " Office note faxed to [facility]. Nurse states that patient in almost completely incontinence and they state a 24 hr urine will be difficult. Please advise. ADIA Etienne Kaitlyn, PA-C 02/26/2025 12:24 PM Signed Ok to disregard 24 hour urine testing. Just have her take calcium citrate 600 mg daily, this will be fine with her current dietary intake. Jacki Sumner MA 02/26/2025 2:55 PM Signed Hermann Avalos from [facility] called back. Message from Lolita Jain [...] mg/spray (0.1 mL) nasal spray Use 1 [place] in the nose as needed for seizures [...] Status:Closed by JACKI SUMNER on 02/26/25 Normal [facility] CNOVon 02-25-2025 CNOV Office Visit (RHWSTR ) -------- CHANDRAKATHERYN SAMPSON ([id number]) 1945 F Date Time Provider Department 02/25/25 3:00 PM LOLITA JAIN WSTR During your visit today, we recorded the following information about you: Pulse Blood pressure Weight 71/minute 142/67 81.2 kg Lolita Jain PA-C 02/25/2025 4:03 PM Signed Osteoporosis and Metabolic Bone Disease CONSULTATION Referring Provider: Jayant Jimenez Date of Service: 02/25/2025 Gender: female Ethnicity: White Age: [age] year old Chief Complaint: New Patient Last Rheumatology visit: None at [facility] Katheryn Chino is a 79 year old [...] years, Gender: Female SCANNER INFORMATION: DXA Model: [employer] [id number] Date Scanned: 11/26/2024 11:08 AM CLINICAL HISTORY: 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 VERTEBRAL FRACTURE ASSESSMENT Not performed. TRABECULAR BONE [...] for treatment. (more content not included)... Normal [facility] Anion gap in Serum or Plasma Ordered By: Todd Velasquez on 02-02-2025 Anion gap [Moles/Vol] 11 mmol/L 5-15 [facility] BUN/creatinine ratioOrdered By: Todd Velasquez on 02-02-2025 Urea nitrogen/Creatinine [Mass ratio] 20.1 mg/mg High 08-03 [facility] Basic Metabolic Profile (BMP )on 02-02-2025 BUN/CRE 20.1 RATIO High 08-03 [facility] Comment on above: Order Comment: 211.2 Performed By: #### L 500.2500 #### [facility] [address] [place], [address] Calcium [Mass/Vol] 8.9 mg/dL Normal 7.6-11.0 [facility] Comment on above: Order Comment: 211.2 Performed By: #### L 500.2500 #### [facility] [address] [place] [place], [address] Chloride [Moles/Vol] 105 mmol/L Normal 98-108 [facility] Comment on above: Order Comment: 211.2 Performed By: #### L 500.2500 #### [facility] [address] [place], [address] CO2 [Moles/Vol] 21.8 mmol/L Normal 21.0-32.0 [facility] Comment on above: Order Comment: 211.2 Performed By: #### L 500.2500 #### [facility] Laboratory [address] [place], [address] Creatinine [Mass/Vol] 0.65 mg/dL Low 0.70-1.20 [facility] Comment on above: Order Comment: 211.2 Performed By: #### L 500.2500 #### [facility] [address] [place], [address] GAP 11 Normal 5-15 [facility] Comment on above: Order Comment: 211.2 Performed By: #### L 500.2500 #### [facility] [address] [place], [address] GFR/1.73 sq M.predicted among non-blacks MDRD (S/P/Bld) [Vol rate/Area] 91 mL/min/{1.73_m2} Normal >60 [facility] Comment on above: Order Comment: 211.2 Result Comment: mL/m in/1.73m2 CKD-EPI Creatinine Equation (2020) Performed By: #### L 500.2500 #### [facility] [address] [place], [address] Glucose [Mass/Vol] 85 mg/dL Normal 70-99 [facility] Comment on above: Order Comment: 211.2 Performed By: #### L 500.2500 #### [facility] [address] [place], [address] Potassium [Moles/Vol] 4.2 mmol/L Normal 3.3-5.1 [facility] Comment on above: Order Comment: 211.2 Performed By: #### L 500.2500 #### [facility] [address] [place], [address] Sodium [Moles/Vol] 138 mmol/L Normal 133-145 [facility] Comment on above: Order Comment: 211.2 Performed By: #### L 500.2500 #### [facility] [address] [place], [address] Urea nitrogen [Mass/Vol] 13 mg/dL Normal 4-19 [facility] Comment on above: Order Comment: 211.2 Performed By: #### L 500.2500 #### [facility] [address] [place], [address] Carbon dioxide, total [Moles /volume] in Central venous bloodOrdered By: Todd Velasquez on 02-02-2025 CO2 [Moles/Vol] 21.8 mmol/L 21.0-32.0 [facility] Chloride assayOrdered By: Whitley on 02-02-2025 Chloride [Moles/Vol] 105 mmol/L 98-108 [facility] GFR/1.73 sq M.predicted miguel g non-blacks MDRD (S/P/Bld) [Vol rate/Area]Ordered By: Todd Velasquez on 02-02-2025 Estimated GFR (MDRD) Non-Af Amer 91 >60 [facility] Comment on above: mL/min/1.73m2 CKD-EP I Creatinine Equation (2020) Glomerular filtration rate ( GFR) estimation/1.73 sq m using serum, plasma, or whole bOrdered By: Todd Velasquez on 02-02-2025 GFR/1.73 sq M.predicted among non-blacks MDRD (S/P/Bld) [Vol rate/Area] 91 mL/min/{1.73_m2} >60 [facility] Comment on above: mL/min/1.73m2 CKD-EP I Creatinine Equation (2020) Potassium (Unsp spec) [Mass/ Vol]Ordered By: Todd Velasquez on 02-02-2025 Potassium [Moles/Vol] 4.2 mmol/L 3.3-5.1 [facility] Potassium measurement (mass/ volume)Ordered By: Todd Velasquez on 02-02-2025 Potassium (Unsp spec) [Mass/Vol] 4.2 mmol/L 3.3-5.1 [facility] Serum creatinine measurement (mass/volume)Ordered By: Todd Velasquez on 02-02-2025 Creatinine [Mass/Vol] 0.65 mg/dL Low 0.70-1.20 [facility] Serum glucose measurement (m ass/volume)Ordered By: Todd Velasquez on 02-02-2025 Glucose [Mass/Vol] 85 mg/dL 70-99 [facility] Serum or plasma calcium jacob urement (mass/volume)Ordered By: Todd Velasquez on 02-02-2025 Calcium [Mass/Vol] 8.9 mg/dL 7.6-11.0 [facility] Serum or plasma urea nitroge n measurement (mass/volume)Ordered By: Todd Velasquez on 02-02-2025 Urea nitrogen [Mass/Vol] 13 mg/dL 4-19 [facility] Sodium levelOrdered By: Todd Velasquez on 02-02-2025 Sodium [Moles/Vol] 138 mmol/L 133-145 [facility] TSH DL <= 0.005 mIU/L QnOrde red By: Todd Velasquez on 01-28-2025 Thyroid Stimulating Hormone (TSH) 2.410 uIU/mL 0.300-4.20 0 [facility] TSH Qn 2.410 uIU/mL 0.300-4.20 0 [facility] Thyroid Stim Hormone (TSH)on 01-28-2025 TSH 2.410 uIU/mL Normal 0.300-4.20 0 [facility] Comment on above: Order Comment: 211.2 Performed By: #### L 3410.9992, L500.2500, L506.1001, L509.1000, L501.2300, L501.5200, L3100.3450 #### [facility] [address] [place], [address] Anion gap in Serum or Plasma Ordered By: Todd Velasquez on 01-19-2025 Anion gap [Moles/Vol] 12 mmol/L 5-15 [facility] BUN/creatinine ratioOrdered By: Todd Velasquez on 01-19-2025 Urea nitrogen/Creatinine [Mass ratio] 20.6 mg/mg High 10-20 [facility] Basic Metabolic Profile (BMP )on 01-19-2025 BUN/CRE 20.6 RATIO High -20 [facility] Comment on above: Order Comment: 211.2 Performed By: #### L 503.6005 #### [facility] [address] [place], [address] Calcium [Mass/Vol] 9.1 mg/dL Normal 7.6-11.0 [facility] Comment on above: Order Comment: 211.2 Performed By: #### L 503.6005 #### [facility] [address] [place], [address] Chloride [Moles/Vol] 104 mmol/L Normal 98-108 [facility] Comment on above: Order Comment: 211.2 Performed By: #### L 503.6005 #### [facility] [address] [place], [address] CO2 [Moles/Vol] 20.1 mmol/L Low 21.0-32.0 [facility] Comment on above: Order Comment: 211.2 Performed By: #### L 503.6005 #### [facility] [address] [place], [address] Creatinine [Mass/Vol] 0.69 mg/dL Low 0.70-1.20 [facility] Comment on above: Order Comment: 211.2 Performed By: #### L 503.6005 #### [facility] [address] [place], [address] GAP 12 Normal 5-15 [facility] Comment on above: Order Comment: 211.2 Performed By: #### L 503.6005 #### [facility] [address] [place], [address] GFR/1.73 sq M.predicted among non-blacks MDRD (S/P/Bld) [Vol rate/Area] 89 mL/min/{1.73_m2} Normal >60 [facility] Comment on above: Order Comment: 211.2 Result Comment: mL/m in/1.73m2 CKD-EPI Creatinine Equation (2020) Performed By: #### L 503.6005 #### [facility] [address] [place], [address] Glucose [Mass/Vol] 94 mg/dL Normal 70-99 [facility] Comment on above: Order Comment: 211.2 Performed By: #### L 503.6005 #### [facility] [address] [place], [address] Potassium [Moles/Vol] 4.2 mmol/L Normal 3.3-5.1 [facility] Comment on above: Order Comment: 211.2 Performed By: #### L 503.6005 #### [facility] [address] [place], [address] Sodium [Moles/Vol] 136 mmol/L Normal 133-145 [facility] Comment on above: Order Comment: 211.2 Performed By: #### L 503.6005 #### [facility] [address] [place], [address] Urea nitrogen [Mass/Vol] 14 mg/dL Normal 4-19 [facility] Comment on above: Order Comment: 211.2 Performed By: #### L 503.6005 #### [facility] [address] [place], [address] CBC-Complete Blood Cnt No Di ffon 01-19-2025 Erythrocyte distribution width (RBC) [Ratio] 14.1 % Normal 11.6-14.6 [facility] Comment on above: Order Comment: 211.2 Performed By: #### L 100.0100 #### [facility] [address] [place], [address] Hematocrit (Bld) [Volume fraction] 33.3 % Low 37-47 [facility] Comment on above: Order Comment: 211.2 Performed By: #### L 100.0100 #### [facility] [address] [place], [address] Hemoglobin (Bld) [Mass/Vol] 10.8 g/dL Low 12.0-15.0 [facility] Comment on above: Order Comment: 211.2 Performed By: #### L 100.0100 #### [facility] [address] [place], [address] MCH (RBC) [Entitic mass] 28.3 pg Normal 27.0-32.0 [facility] Comment on above: Order Comment: 211.2 Performed By: #### L 100.0100 #### [facility] [address] [place], [address] MCHC (RBC) [Mass/Vol] 32.4 g/dL Normal 32-36 [facility] Comment on above: Order Comment: 211.2 Performed By: #### L 100.0100 #### [facility] [address] [place], [address] MCV (RBC) [Entitic vol] 87.4 fL Normal 81-99 [facility] Comment on above: Order Comment: 211.2 Performed By: #### L 100.0100 #### [facility] [address] [place], [address] Platelet mean volume (Bld) [Entitic vol] 12.3 fL High 6.2-12.0 [facility] Comment on above: Order Comment: 211.2 Performed By: #### L 100.0100 #### [facility] [address] [place] [place], [address] Platelets (Bld) [#/Vol] 193 10*3/uL Normal 150-450 [facility] Comment on above: Order Comment: 211.2 Performed By: #### L 100.0100 #### [facility] [address] [place] [place], [address] RBC (Bld) [#/Vol] 3.81 10*6/uL Low 4.2-5.4 [facility] Comment on above: Order Comment: 211.2 Performed By: #### L 100.0100 #### [facility] [address] [place] [place], [address] RDW SD 45.1 fl High 35.1-43.9 [facility] Comment on above: Order Comment: 211.2 Performed By: #### L 100.0100 #### [facility] [address] [place] [place], [address] WBC (Bld) [#/Vol] 6.3 10*3/uL Normal 4.4-11.0 [facility] Comment on above: Order Comment: 211.2 Performed By: #### L 100.0100 #### [facility] [address] [place], [address] Carbon dioxide, total [Moles /volume] in Central venous bloodOrdered By: Todd Velasquez on 01-19-2025 CO2 [Moles/Vol] 20.1 mmol/L Low 21.0-32.0 [facility] Chloride assayOrdered By: Whitley on 01-19-2025 Chloride [Moles/Vol] 104 mmol/L 98-108 [facility] Erythrocyte distribution wid th (RBC) [Ratio]Ordered By: Todd Velasquez on 01-19-2025 Erythrocyte distribution width (RBC) [Entitic vol] 45.1 fL High 35.1-43.9 [facility] Erythrocyte distribution wid th ratioOrdered By: Todd Velasquez on 01-19-2025 Erythrocyte distribution width (RBC) [Ratio] 14.1 % 11.6-14.6 [facility] Erythrocyte distribution wid th standard deviationOrdered By: Todd Velasquez on 01-19-2025 Erythrocyte distribution width (RBC) [Ratio] 45.1 fl High 35.1-43.9 [facility] GFR/1.73 sq M.predicted miguel g non-blacks MDRD (S/P/Bld) [Vol rate/Area]Ordered By: Todd Velasquez on 01-19-2025 Estimated GFR (MDRD) Non-Af Amer 89 >60 [facility] Comment on above: mL/min/1.73m2 CKD-EP I Creatinine Equation (2020) Glomerular filtration rate ( GFR) estimation/1.73 sq m using serum, plasma, or whole bOrdered By: Todd Velasquez on 01-19-2025 GFR/1.73 sq M.predicted among non-blacks MDRD (S/P/Bld) [Vol rate/Area] 89 mL/min/{1.73_m2} >60 [facility] Comment on above: mL/min/1.73m2 CKD-EP I Creatinine Equation (2020) Hematocrit Auto (Bld) [Volum e fraction]Ordered By: Todd Velasquez on 01-19-2025 Hematocrit (Bld) [Volume fraction] 33.3 % Low 37-47 [facility] Hemoglobin measurementOrdere d By: Todd Velasquez on 01-19-2025 Hemoglobin (Bld) [Mass/Vol] 10.8 g/dL Low 12.0-15.0 [facility] MCV (mean corpuscular volume ) determinationOrdered By: Todd Velasquez 01-19-2025 MCV (RBC) [Entitic vol] 87.4 fL 81-99 [facility] Mean corpuscular hemoglobin (MCH) determinationOrdered By: Todd Velasquez on 01-19-2025 MCH (RBC) [Entitic mass] 28.3 pg 27.0-32.0 [facility] Mean corpuscular hemoglobin concentration (MCHC) determinationOrdered By: Todd Velasquez on 01-19-2025 MCHC (RBC) [Mass/Vol] 32.4 g/dL 32-36 [facility] Mean platelet volume determi nationOrdered By: Todd Velasquez on 01-19-2025 Platelet mean volume (Bld) [Entitic vol] 12.3 fL High 6.2-12.0 [facility] Platelet countOrdered By: Whitley on 01-19-2025 Platelets (Bld) [#/Vol] 193 10*3/uL 150-450 [facility] Potassium (Unsp spec) [Mass/ Vol]Ordered By: Todd Velasquez on 01-19-2025 Potassium [Moles/Vol] 4.2 mmol/L 3.3-5.1 [facility] Potassium measurement (mass/ volume)Ordered By: Todd Velasquez on 01-19-2025 Potassium (Unsp spec) [Mass/Vol] 4.2 mmol/L 3.3-5.1 [facility] RBC Auto (Bld) [#/Vol]Ordere d By: Todd Velasquez on 01-19-2025 RBC (Bld) [#/Vol] 3.81 10*6/uL Low 4.2-5.4 [facility] Serum creatinine measurement (mass/volume)Ordered By: Todd Velasquez on 01-19-2025 Creatinine [Mass/Vol] 0.69 mg/dL Low 0.70-1.20 [facility] Serum glucose measurement (m ass/volume)Ordered By: Todd Velasquez on 01-19-2025 Glucose [Mass/Vol] 94 mg/dL 70-99 [facility] Serum or plasma calcium jacob urement (mass/volume)Ordered By: Todd Velasquez on 01-19-2025 Calcium [Mass/Vol] 9.1 mg/dL 7.6-11.0 [facility] Serum or plasma urea nitroge n measurement (mass/volume)Ordered By: Todd Velasquez on 01-19-2025 Urea nitrogen [Mass/Vol] 14 mg/dL 4-19 [facility] Sodium levelOrdered By: Todd Velasquez on 01-19-2025 Sodium [Moles/Vol] 136 mmol/L 133-145 [facility] White blood cell (WBC) count Ordered By: Todd Velasquez on 01-19-2025 WBC (Bld) [#/Vol] 6.3 10*3/uL 4.4-11.0 [facility] CNPNon 01-16-2025 CNPN Telephone (NE50MN) -------- LULÚYOGESHKATHERYN ([id number]) 1945 F Date Time Provider Department 01/16/25 JAYANT JIMENEZ NE50MN During your visit today, we recorded the following information about you: Naheed Guallpa 01/16/2025 12:38 PM Signed Medication Concern Person Calling Katia Nurse from assisted Name of medication Lacosamide Concern with medication [...] to be sent in. Sandra Casey RN Mayda Harrison PA-C 01/16/2025 4:54 PM Signed The following approved medication requests have been transmitted electronically. Requested Prescriptions Signed Prescriptions Disp Refills lacosamide (VIMPAT) 100 mg tab 90 tablet 1 Sig: Take 1 tablet by mouth every morning for 180 days. Authorizing Provider: MAYDA HARRISON PA-C PDMP website checked and validated. All prescriptions have been APPROPRIATELY filled. No suspicious activity was identified. 01/16/2025 by Mayda Harrison PA-C Allergies As of Date: 01/16/2025 (No [...] mg/spray (0.1 mL) nasal spray Use 1 [place] in the nose as needed for seizures [...] care, counseling/d (more content not included)... Normal [facility] CNOVon 01-15-2025 CNOV Office Visit (NEEPBA ) -------- KATHERYN CHINO ([id number]) 1945 F Date Time Provider Department 01/15/25 [...] precautions - No driving in the state [facility] until seizure free for 6 months. [...] factor. Jayant Jimenez MD Associate Staff, Epilepsy [facility] January 15, 2025 Office phone: [phone] Jayant Jimenez MD 01/15/2025 8:54 AM Signed [facility] Patient Name: Katheryn Chino Date of : 1945 ESTABLISHED EPILEPSY CLINIC NOTE 01/15/2025 8:00 AM Reason for Visit: Follow Up and Epilepsy Clinical Summary: Ms. Chino is a 79 year old female seen in [facility]. At today's visit, the patient [...] with AEDs . [place] to [place] and she has more suervison with AEDs now. 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 She had good seizure control for a few years until covid. Hospitaltization in Aug 2024 for a prolonged GTCS at the facility ( brother reports it lasted ~ 25 mins). Admitted to [facility] where Dilantin and Depakote levels were [...] posture. She is currently taking vitamin D. aKtheryn resides in a nursing facility, where she engages in activities such as puzzles, bingo, and games. Her brother reports that the facility is well-run, with a goo (more content not included)... Normal [facility] Serum or plasma valproate me asurement (mass/volume)Ordered By: Todd Velasquez on 12-26-2024 Valproate [Mass/Vol] 91 ug/mL 50-100 [facility] Comment on above: Valproic Acid concen trations >100 ug/mL are potentially toxic. Valproate [Mass/Vol]Ordered By: Todd Velasquez on 12-26-2024 Valproic Acid (Depakene) Level 91 ug/mL 50-100 [facility] Comment on above: Valproic Acid concen trations >100 ug/mL are potentially toxic. Valproic Acid (Depakene) Lev maribell 12-26-2024 VALPROIC ACID 91 ug/mL Normal 50-100 [facility] Comment on above: Order Comment: 211.2 Result Comment: Valp roic Acid concentrations >100 ug/mL are potentially toxic. Performed By: #### L 3410.9992, L500.2500, L506.1001, L509.1000, L501.2300, L501.5200, L3100.3450 #### [facility] [address] [place], [place], [address] CNPAni 12-24-2024 LIBORIO Telephone ([employer]) -------- KATHERYN CHINO ([id number]) 1945 F Date Time Provider Department 12/24/24 JAYANT JIMENEZ During your visit today, we recorded the following information about you: Franchesca Arana 12/24/2024 8:57 AM Signed ORDERS Person requesting order: [facility] Phone number: [phone] Order being requested: Facility: [facility] Patient of Dr. Jimenez Forwarded to Nurse Silvia Rogers RN 12/24/2024 2:24 PM Signed Spoke with nurse Becker at [facility]. See 12/23/24 encounter. Silvia Rogers RN Allergies As of Date: 12/24/2024 (No Known Allergies) Date Reviewed: 09/24/2024 Reviewed by: Shalini Montana LPN - Fully Assessed Reason for Visit: Orders [681] Cmt: [facility] Prescriptions as of 12/24/2024 - midazolam (NAYZILAM) 5 mg/spray (0.1 mL) nasal spray Use 1 [place] in the nose as needed for seizures [...] Encounter Status:Closed by SILVIA ROGERS on 12/24/24 [facility] 12-23-2024 CNPN Telephone (NE50MN) -------- KATHERYN CHINO ([id number]) 1945 F Date Time Provider Department 12/23/24 JAYANT JIMENEZ NE50MN During your visit today, we recorded the following information about you: Chandni Hull 12/23/2024 2:21 PM Signed Medication Concern Person Calling Rosita Cornejo, from [facility], ask for Pat's nurse Name of medication Nayzilam Concern with medication Nurse states the medication did not work the last time the patient had a seizure. Wants to know if another rescue medication can be prescribed instead. Patient of Silvia Ponce, RN 12/24/2024 2:23 PM Signed Spoke with [...] spray 2 Each 1 Sig: Use 1 [place] in the nose as needed for seizures lasting longer than 3 minutes. May repeat dose once after 4 hours based on response and tolerability for a maximum of 2 doses per 24-hour period. Authorizing Provider: ARTIS HAMILTON APRN.Silvia Willis RN 12/25/2024 2:36 PM Signed Valtoco Rx faxed via [employer]x to: [facility] PH: [phone] FAX : [phone] Confirmation received. Called the facility, spoke with Monique. They received the Valtoco Rx, facility paid $700. 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 May repeat dose once after 4 hours based on response and tolerability for a maximum of 2 doses per 24-hour period.Disp: 2 EachRfl: 1 Prescriptions as of 12/25/2024 - diazePAM (VALTOCO) 10 mg/spray (0.1 mL) nasal spray Use 1 [place] in the nose as needed for seizures [...] - d (more content not included)... Normal [facility] Kuldip 12-19-2024 LIBORIO Telephone (NE50MN) -------- KATHERYN CHINO ([id number]) 1945 F Date Time Provider Department 12/19/24 JAYANT JIMENEZ NE50MN During your visit today, we recorded the following information about you: Yocasta Rivers 12/19/2024 12:37 PM Signed [facility]SIDE [facility] PHONE/FAX COLLECTION DATE AND TIME: 12/15/24 540 Uploaded to [facility] Silvia Rogers RN 12/19/2024 12:53 PM Signed Current LCM dose 100/150 Forwarded to MARIO [employer] for review. MEGA Christianson Kelly, APRN.DWAYNE 12/19/2024 [...] Assessed Reason for Visit: Outside Lab Results [723] Cmt: lacosamide Prescriptions as of 12/24/2024 - midazolam (NAYZILAM) 5 mg/spray (0.1 mL) nasal spray Use 1 [place] in the nose as needed for seizures [...] Status:Closed by SILVIA ROGERS on 12/24/24 Normal [facility] L3410.9998on 12-19-2024 [facility] Misc. COMMENT Normal . [facility] Comment on above: Order Comment: 211.2 SERUM POUR OFF ROOM [id number] Result Comment: Test Ordered: [id number] Lacosamide Test(s) 121297-Ckfmekixlz was developed and its performance characteristics determined by [facility]. It has not been cleared or approved by the Food and Drug Administration. Lacosamide 4.6 [L ] ug/mL BN Reference Range: 5.0-10.0 Limit of Detection 0.5 Mean plasma concentrations following maintenance dose 200 mg/day 4.99 +/- 2.51 ug/mL 400 mg/day 9.35 +/- 4.22 ug/mL 600 mg/day 12.46 +/- 5.60 ug/mL Performed at: - [facility] [address] [id number] Forward Air Controller/Air Officer: Nahed Naidu MD, Phone: [phone] Performed at: - [facility] [address] [id number] Forward Air Controller/Air Officer: Haris Peraza PhD, Phone: [phone] Performed By: #### L 3410.9992, L500.2500, L506.1001, L509.1000, L501.2300, L501.5200, L3100.3450 #### [facility] [address] [place], [address] BUN/creatinine ratioOrdered By: Todd Velasquez on 12-15-2024 Urea nitrogen/Creatinine [Mass ratio] 17.8 mg/mg 10-20 [facility] Bilirubin, totalOrdered By: Todd Velasquez on 12-15-2024 Bilirubin [Mass/Vol] 0.24 mg/dL 0.00-1.30 [facility] CBC-Complete Blood Cnt No Di ffon 12-15-2024 Erythrocyte distribution width (RBC) [Ratio] 13.6 % Normal 11.6-14.6 [facility] Comment on above: Order Comment: 211.2 Performed By: #### L 500.2500 #### [facility] [address] [place], [address] Hematocrit (Bld) [Volume fraction] 31.6 % Low 37-47 [facility] Comment on above: Order Comment: 211.2 Performed By: #### L 500.2500 #### [facility] [address] [place], [address] Hemoglobin (Bld) [Mass/Vol] 9.8 g/dL Low 12.0-15.0 [facility] Comment on above: Order Comment: 211.2 Performed By: #### L 500.2500 #### [facility] [address] [place], [address] MCH (RBC) [Entitic mass] 28.2 pg Normal 27.0-32.0 [facility] Comment on above: Order Comment: 211.2 Performed By: #### L 500.2500 #### [facility] [address] [place] [place], [address] MCHC (RBC) [Mass/Vol] 31.0 g/dL Low 32-36 [facility] Comment on above: Order Comment: 211.2 Performed By: #### L 500.2500 #### [facility] [address] [place], [address] MCV (RBC) [Entitic vol] 91.1 fL Normal 81-99 [facility] Comment on above: Order Comment: 211.2 Performed By: #### L 500.2500 #### [facility] [address] [place], [address] Platelet mean volume (Bld) [Entitic vol] 12.7 fL High 6.2-12.0 [facility] Comment on above: Order Comment: 211.2 Performed By: #### L 500.2500 #### [facility] [address] [place], [address] Platelets (Bld) [#/Vol] 194 10*3/uL Normal 150-450 [facility] Comment on above: Order Comment: 211.2 Performed By: #### L 500.2500 #### [facility] [address] [place], [address] RBC (Bld) [#/Vol] 3.47 10*6/uL Low 4.2-5.4 [facility] Comment on above: Order Comment: 211.2 Performed By: #### L 500.2500 #### [facility] [address] [place], [address] RDW SD 45.2 fl High 35.1-43.9 [facility] Comment on above: Order Comment: 211.2 Performed By: #### L 500.2500 #### [facility] [address] [place], [address] WBC (Bld) [#/Vol] 7.1 10*3/uL Normal 4.4-11.0 [facility] Comment on above: Order Comment: 211.2 Performed By: #### L 500.2500 #### [facility] [address] [place], [address] Carbon dioxide measurementOr dered By: Todd Velasquez on 12-15-2024 CO2 [Moles/Vol] 23.3 mmol/L 22.0-29.0 [facility] Chloride measurementOrdered By: Todd Velasquez on 12-15-2024 Chloride [Moles/Vol] 105 mmol/L 96-108 [facility] Comprehensive Metabolic Prof ilon 12-15-2024 Albumin [Mass/Vol] 3.8 g/dL Normal 3.4-4.8 [facility] Comment on above: Order Comment: 211.2 Performed By: #### L 500.2500 #### [facility] [address] [place], [address] Albumin/Globulin [Mass ratio] 1.3 {ratio} Normal 0.9-2.4 [facility] Comment on above: Order Comment: 211.2 Performed By: #### L 500.2500 #### [facility] [address] [place], [address] ALK PHOS 121 U/L High 35-104 [facility] Comment on above: Order Comment: 211.2 Performed By: #### L 500.2500 #### [facility] [address] [place], [address] ALT [Catalytic activity/Vol] 16 U/L Normal <=34 [facility] Comment on above: Order Comment: 211.2 Performed By: #### L 500.2500 #### [facility] [address] [place], [address] Anion gap [Moles/Vol] 9 mmol/L Normal 5-15 [facility] Comment on above: Order Comment: 211.2 Performed By: #### L 500.2500 #### [facility] [address] [place], [address] AST [Catalytic activity/Vol] 28 U/L Normal <=31 [facility] Comment on above: Order Comment: 211.2 Performed By: #### L 500.2500 #### [facility] [address] [place], [address] Bilirubin [Mass/Vol] 0.24 mg/dL Normal 0.00-1.30 [facility] Comment on above: Order Comment: 211.2 Performed By: #### L 500.2500 #### [facility] [address] [place], [address] BUN/CRE 17.8 RATIO Normal 10-20 [facility] Comment on above: Order Comment: 211.2 Performed By: #### L 500.2500 #### [facility] [address] [place], [address] Calcium [Mass/Vol] 9.1 mg/dL Normal 7.6-11.0 [facility] Comment on above: Order Comment: 211.2 Performed By: #### L 500.2500 #### [facility] [address] [place], [address] Chloride [Moles/Vol] 105 mmol/L Normal 96-108 [facility] Comment on above: Order Comment: 211.2 Performed By: #### L 500.2500 #### [facility] [address] [place], [address] CO2 [Moles/Vol] 23.3 mmol/L Normal 22.0-29.0 [facility] Comment on above: Order Comment: 211.2 Performed By: #### L 500.2500 #### [facility] [address] [place], [address] Creatinine [Mass/Vol] 0.61 mg/dL Low 0.70-1.20 [facility] Comment on above: Order Comment: 211.2 Performed By: #### L 500.2500 #### [facility] [address] [place], [address] GFR/1.73 sq M.predicted among non-blacks MDRD (S/P/Bld) [Vol rate/Area] 92 mL/min/{1.73_m2} Normal >60 [facility] Comment on above: Order Comment: 211.2 Result Comment: mL/m in/1.73m2 CKD-EPI Creatinine Equation (2020) Performed By: #### L 500.2500 #### [facility] [address] [place], [address] Globulin (S) [Mass/Vol] 3.0 g/dL Normal 2.2-4.2 [facility] Comment on above: Order Comment: 211.2 Performed By: #### L 500.2500 #### [facility] [address] [place], [address] Glucose [Mass/Vol] 90 mg/dL Normal 70-99 [facility] Comment on above: Order Comment: 211.2 Performed By: #### L 500.2500 #### [facility] [address] [place], [address] Potassium [Moles/Vol] 4.8 mmol/L Normal 3.3-5.1 [facility] Comment on above: Order Comment: 211.2 Performed By: #### L 500.2500 #### [facility] [address] [place], [address] Sodium [Moles/Vol] 137 mmol/L Normal 133-145 [facility] Comment on above: Order Comment: 211.2 Performed By: #### L 500.2500 #### [facility] [address] [place], [address] T PROT 6.8 g/dL Normal 5.9-8.4 [facility] Comment on above: Order Comment: 211.2 Performed By: #### L 500.2500 #### [facility] [address] [place], [address] Urea nitrogen [Mass/Vol] 11 mg/dL Normal 4-19 [facility] Comment on above: Order Comment: 211.2 Performed By: #### L 500.2500 #### [facility] [address] [place], [place], [address] Erythrocyte distribution wid th (RBC) [Ratio]Ordered By: Todd Velasquez on 12-15-2024 Erythrocyte distribution width (RBC) [Entitic vol] 45.2 fL High 35.1-43.9 [facility] Erythrocyte distribution wid th ratioOrdered By: Todd Velasquez on 12-15-2024 Erythrocyte distribution width (RBC) [Ratio] 13.6 % 11.6-14.6 [facility] Erythrocyte distribution wid th standard deviationOrdered By: Todd Velaqsuez on 12-15-2024 Erythrocyte distribution width (RBC) [Ratio] 45.2 fl High 35.1-43.9 [facility] GFR/1.73 sq M.predicted miguel g non-blacks MDRD (S/P/Bld) [Vol rate/Area]Ordered By: Todd Velasquez on 12-15-2024 Estimated GFR (MDRD) Non-Af Amer 92 >60 [facility] Comment on above: mL/min/1.73m2 CKD-EP I Creatinine Equation (2020) Glomerular filtration rate ( GFR) estimation/1.73 sq m using serum, plasma, or whole bOrdered By: Todd Velasquez on 12-15-2024 GFR/1.73 sq M.predicted among non-blacks MDRD (S/P/Bld) [Vol rate/Area] 92 mL/min/{1.73_m2} >60 [facility] Comment on above: mL/min/1.73m2 CKD-EP I Creatinine Equation (2020) Hematocrit Auto (Bld) [Volum e fraction]Ordered By: Todd Velasquez on 12-15-2024 Hematocrit (Bld) [Volume fraction] 31.6 % Low 37-47 [facility] Hemoglobin measurementOrdere d By: Todd Velasquez on 12-15-2024 Hemoglobin (Bld) [Mass/Vol] 9.8 g/dL Low 12.0-15.0 [facility] - Chemistry and C hemistry - challengeOrdered By: Todd Velasquez on 12-15-2024 AST [Catalytic activity/Vol] 28 U/L <32 [facility] MCV (mean corpuscular volume ) determinationOrdered By: Todd Velasquez on 12-15-2024 MCV (RBC) [Entitic vol] 91.1 fL 81-99 [facility] Mean corpuscular hemoglobin (MCH) determinationOrdered By: Todd Velasquez on 12-15-2024 MCH (RBC) [Entitic mass] 28.2 pg 27.0-32.0 [facility] Mean corpuscular hemoglobin concentration (MCHC) determinationOrdered By: Todd Velasquez on 12-15-2024 MCHC (RBC) [Mass/Vol] 31.0 g/dL Low 32-36 [facility] Mean platelet volume determi nationOrdered By: Todd Velasquez on 12-15-2024 Platelet mean volume (Bld) [Entitic vol] 12.7 fL High 6.2-12.0 [facility] Platelet countOrdered By: Whitley on 12-15-2024 Platelets (Bld) [#/Vol] 194 10*3/uL 150-450 [facility] RBC Auto (Bld) [#/Vol]Ordere d By: Todd Velasquez on 12-15-2024 RBC (Bld) [#/Vol] 3.47 10*6/uL Low 4.2-5.4 [facility] Serum creatinine measurement (mass/volume)Ordered By: Todd Velasquez on 12-15-2024 Creatinine [Mass/Vol] 0.61 mg/dL Low 0.70-1.20 [facility] Serum globulin measurementOr dered By: Todd Velasquez on 12-15-2024 Globulin (S) [Mass/Vol] 3.0 g/dL 2.2-4.2 [facility] Serum glucose measurement (m ass/volume)Ordered By: Todd Velasquez on 12-15-2024 Glucose [Mass/Vol] 90 mg/dL 70-99 [facility] Serum or plasma alanine ignacio otransferase (ALT) measurementOrdered By: Todd Velasquez on 12-15-2024 ALT [Catalytic activity/Vol] 16 U/L <35 [facility] Serum or plasma albumin jacob urement (mass/volume)Ordered By: Todd Velasquez on 12-15-2024 Albumin [Mass/Vol] 3.8 g/dL 3.4-4.8 [facility] Serum or plasma albumin/glob ulin mass ratioOrdered By: Todd Velasquez on 12-15-2024 Albumin/Globulin [Mass ratio] 1.3 {ratio} 0.9-2.4 [facility] Serum or plasma alkaline phillip sphatase measurementOrdered By: Todd Velasquez on 12-15-2024 ALP [Catalytic activity/Vol] 121 U/L High 35-104 [facility] Serum or plasma anion gap de termination (moles/volume)Ordered By: Todd Velasquez on 12-15-2024 Anion gap [Moles/Vol] 9 mmol/L 5-15 [facility] Serum or plasma calcium jacob urement (mass/volume)Ordered By: Todd Velasquez on 12-15-2024 Calcium [Mass/Vol] 9.1 mg/dL 7.6-11.0 [facility] Serum or plasma potassium me asurementOrdered By: Todd Velasquez on 12-15-2024 Potassium [Moles/Vol] 4.8 mmol/L 3.3-5.1 [facility] Serum or plasma sodium measu rement (moles/volume)Ordered By: Todd Velasquez on 12-15-2024 Sodium [Moles/Vol] 137 mmol/L 133-145 [facility] Serum or plasma urea nitroge n measurement (mass/volume)Ordered By: Todd Velasquez on 12-15-2024 Urea nitrogen [Mass/Vol] 11 mg/dL 4-19 [facility] Serum or plasma valproate me asurement (mass/volume)Ordered By: Todd Velasquez on 12-15-2024 Valproate [Mass/Vol] 40 ug/mL Low 50-100 [facility] Comment on above: Valproic Acid concen trations >100 ug/mL are potentially toxic. TSH DL <= 0.005 mIU/L QnOrde red By: Todd Velasquez on 12-15-2024 Thyroid Stimulating Hormone (TSH) 4.640 uIU/mL High 0.300-4.20 0 [facility] TSH Qn 4.640 uIU/mL High 0.300-4.20 0 [facility] Thyroid Stim Hormone (TSH)on 12-15-2024 TSH 4.640 uIU/mL High 0.300-4.20 0 [facility] Comment on above: Order Comment: 211.2 Performed By: #### L 3410.9992, L500.2500, L506.1001, L509.1000, L501.2300, L501.5200, L3100.3450 #### [facility] [address] [place], [place], [id number] Total proteinOrdered By: Ignacia Velasquez on 12-15-2024 Protein [Mass/Vol] 6.8 g/dL 5.9-8.4 [facility] Valproate [Mass/Vol]Ordered By: Todd Velasquez on 12-15-2024 Valproic Acid (Depakene) Level 40 ug/mL Low 50-100 [facility] Comment on above: Valproic Acid concen trations >100 ug/mL are potentially toxic. Valproic Acid (Depakene) Lev maribell 12-15-2024 VALPROIC ACID 40 ug/mL Low 50-100 [facility] Comment on above: Order Comment: 211.2 Result Comment: Valp roic Acid concentrations >100 ug/mL are potentially toxic. Performed By: #### L 500.2500 #### [facility] [address] [place], [address] White blood cell (WBC) count Ordered By: Todd Velasquez on 12-15-2024 WBC (Bld) [#/Vol] 7.1 10*3/uL 4.4-11.0 [facility] BUN/creatinine ratioOrdered By: Todd Velasquez on 12-10-2024 Urea nitrogen/Creatinine [Mass ratio] 20.4 mg/mg High 10-20 [facility] Bilirubin, totalOrdered By: Todd Velasquez on 12-10-2024 Bilirubin [Mass/Vol] 0.21 mg/dL 0.00-1.30 [facility] CBC-Complete Blood Cnt No Di ffon 12-10-2024 Erythrocyte distribution width (RBC) [Ratio] 13.2 % Normal 11.6-14.6 [facility] Comment on above: Order Comment: 211.2 Performed By: #### L 3410.9992, L500.2500, L506.1001, L509.1000, L501.2300, L501.5200, L3100.3450 #### [facility] [address] [place], [address] Hematocrit (Bld) [Volume fraction] 31.1 % Low 37-47 [facility] Comment on above: Order Comment: 211.2 Performed By: #### L 3410.9992, L500.2500, L506.1001, L509.1000, L501.2300, L501.5200, L3100.3450 #### [facility] [address] [place], [address] Hemoglobin (Bld) [Mass/Vol] 10.1 g/dL Low 12.0-15.0 [facility] Comment on above: Order Comment: 211.2 Performed By: #### L 3410.9992, L500.2500, L506.1001, L509.1000, L501.2300, L501.5200, L3100.3450 #### [facility] [address] [place], [address] MCH (RBC) [Entitic mass] 28.9 pg Normal 27.0-32.0 [facility] Comment on above: Order Comment: 211.2 Performed By: #### L 3410.9992, L500.2500, L506.1001, L509.1000, L501.2300, L501.5200, L3100.3450 #### [facility] [address] [place], [address] MCHC (RBC) [Mass/Vol] 32.5 g/dL Normal 32-36 [facility] Comment on above: Order Comment: 211.2 Performed By: #### L 3410.9992, L500.2500, L506.1001, L509.1000, L501.2300, L501.5200, L3100.3450 #### [facility] [address] [place], [address] MCV (RBC) [Entitic vol] 89.1 fL Normal 81-99 [facility] Comment on above: Order Comment: 211.2 Performed By: #### L 3410.9992, L500.2500, L506.1001, L509.1000, L501.2300, L501.5200, L3100.3450 #### [facility] [address] [place], [address] Platelet mean volume (Bld) [Entitic vol] 11.9 fL Normal 6.2-12.0 [facility] Comment on above: Order Comment: 211.2 Performed By: #### L 3410.9992, L500.2500, L506.1001, L509.1000, L501.2300, L501.5200, L3100.3450 #### [facility] [address] [place], [address] Platelets (Bld) [#/Vol] 177 10*3/uL Normal 150-450 [facility] Comment on above: Order Comment: 211.2 Performed By: #### L 3410.9992, L500.2500, L506.1001, L509.1000, L501.2300, L501.5200, L3100.3450 #### [facility] [address] [place], [address] RBC (Bld) [#/Vol] 3.49 10*6/uL Low 4.2-5.4 [facility] Comment on above: Order Comment: 211.2 Performed By: #### L 3410.9992, L500.2500, L506.1001, L509.1000, L501.2300, L501.5200, L3100.3450 #### [facility] [address] [place], [address] RDW SD 43.0 fl Normal 35.1-43.9 [facility] Comment on above: Order Comment: 211.2 Performed By: #### L 3410.9992, L500.2500, L506.1001, L509.1000, L501.2300, L501.5200, L3100.3450 #### [facility] [address] [place], [address] WBC (Bld) [#/Vol] 6.6 10*3/uL Normal 4.4-11.0 [facility] Comment on above: Order Comment: 211.2 Performed By: #### L 3410.9992, L500.2500, L506.1001, L509.1000, L501.2300, L501.5200, L3100.3450 #### [facility] [address] [place], [address] Carbon dioxide measurementOr dered By: Todd Velasquez on 12-10-2024 CO2 [Moles/Vol] 24.4 mmol/L 22.0-29.0 [facility] Chloride measurementOrdered By: Todd Velasquez on 12-10-2024 Chloride [Moles/Vol] 105 mmol/L 96-108 [facility] Comprehensive Metabolic Prof ilon 12-10-2024 Albumin [Mass/Vol] 3.6 g/dL Normal 3.4-4.8 [facility] Comment on above: Order Comment: 211.2 Performed By: #### L 3410.9992, L500.2500, L506.1001, L509.1000, L501.2300, L501.5200, L3100.3450 #### [facility] [address] [place], [address] Albumin/Globulin [Mass ratio] 1.3 {ratio} Normal 0.9-2.4 [facility] Comment on above: Order Comment: 211.2 Performed By: #### L 3410.9992, L500.2500, L506.1001, L509.1000, L501.2300, L501.5200, L3100.3450 #### [facility] [address] [place], [address] ALK PHOS 118 U/L High 35-104 [facility] Comment on above: Order Comment: 211.2 Performed By: #### L 3410.9992, L500.2500, L506.1001, L509.1000, L501.2300, L501.5200, L3100.3450 #### [facility] [address] [place], [address] ALT [Catalytic activity/Vol] 14 U/L Normal <=34 [facility] Comment on above: Order Comment: 211.2 Performed By: #### L 3410.9992, L500.2500, L506.1001, L509.1000, L501.2300, L501.5200, L3100.3450 #### [facility] [address] [place], [address] Anion gap [Moles/Vol] 11 mmol/L Normal 5-15 [facility] Comment on above: Order Comment: 211.2 Performed By: #### L 3410.9992, L500.2500, L506.1001, L509.1000, L501.2300, L501.5200, L3100.3450 #### [facility] [address] [place], [address] AST [Catalytic activity/Vol] 34 U/L High <=31 [facility] Comment on above: Order Comment: 211.2 Performed By: #### L 3410.9992, L500.2500, L506.1001, L509.1000, L501.2300, L501.5200, L3100.3450 #### [facility] [address] [place], [address] Bilirubin [Mass/Vol] 0.21 mg/dL Normal 0.00-1.30 [facility] Comment on above: Order Comment: 211.2 Performed By: #### L 3410.9992, L500.2500, L506.1001, L509.1000, L501.2300, L501.5200, L3100.3450 #### [facility] [address] [place], [place], [id number] (120) BUN/CRE 20.4 RATIO High 10-20 [facility] Comment on above: Order Comment: 211.2 Performed By: #### L 3410.9992, L500.2500, L506.1001, L509.1000, L501.2300, L501.5200, L3100.3450 #### [facility] [address] [place], [address] Calcium [Mass/Vol] 8.9 mg/dL Normal 7.6-11.0 [facility] Comment on above: Order Comment: 211.2 Performed By: #### L 3410.9992, L500.2500, L506.1001, L509.1000, L501.2300, L501.5200, L3100.3450 #### [facility] [address] [place], [address] Chloride [Moles/Vol] 105 mmol/L Normal 96-108 [facility] Comment on above: Order Comment: 211.2 Performed By: #### L 3410.9992, L500.2500, L506.1001, L509.1000, L501.2300, L501.5200, L3100.3450 #### [facility] [address] [place], [address] CO2 [Moles/Vol] 24.4 mmol/L Normal 22.0-29.0 [facility] Comment on above: Order Comment: 211.2 Performed By: #### L 3410.9992, L500.2500, L506.1001, L509.1000, L501.2300, L501.5200, L3100.3450 #### [facility] [address] [place], [address] Creatinine [Mass/Vol] 0.6 mg/dL Normal 0.6-1.0 [facility] Comment on above: Order Comment: 211.2 Performed By: #### L 3410.9992, L500.2500, L506.1001, L509.1000, L501.2300, L501.5200, L3100.3450 #### [facility] [address] [place], [address] GFR/1.73 sq M.predicted among non-blacks MDRD (S/P/Bld) [Vol rate/Area] 95 mL/min/{1.73_m2} Normal >60 [facility] Comment on above: Order Comment: 211.2 Result Comment: mL/m in/1.73m2 CKD-EPI Creatinine Equation (2020) Performed By: #### L 3410.9992, L500.2500, L506.1001, L509.1000, L501.2300, L501.5200, L3100.3450 #### [facility] [address] [place], [address] Globulin (S) [Mass/Vol] 2.7 g/dL Normal 2.2-4.2 [facility] Comment on above: Order Comment: 211.2 Performed By: #### L 3410.9992, L500.2500, L506.1001, L509.1000, L501.2300, L501.5200, L3100.3450 #### [facility] [address] [place], [address] Glucose [Mass/Vol] 92 mg/dL Normal 70-99 [facility] Comment on above: Order Comment: 211.2 Performed By: #### L 3410.9992, L500.2500, L506.1001, L509.1000, L501.2300, L501.5200, L3100.3450 #### [facility] [address] [place], [address] Potassium [Moles/Vol] 4.1 mmol/L Normal 3.3-5.1 [facility] Comment on above: Order Comment: 211.2 Performed By: #### L 3410.9992, L500.2500, L506.1001, L509.1000, L501.2300, L501.5200, L3100.3450 #### [facility] [address] [place], [address] Sodium [Moles/Vol] 140 mmol/L Normal 133-145 [facility] Comment on above: Order Comment: 211.2 Performed By: #### L 3410.9992, L500.2500, L506.1001, L509.1000, L501.2300, L501.5200, L3100.3450 #### [facility] [address] [place], [address] T PROT 6.3 g/dL Normal 5.9-8.4 [facility] Comment on above: Order Comment: 211.2 Performed By: #### L 3410.9992, L500.2500, L506.1001, L509.1000, L501.2300, L501.5200, L3100.3450 #### [facility] [address] [place], [address] Urea nitrogen [Mass/Vol] 11 mg/dL Normal 4-19 [facility] Comment on above: Order Comment: 211.2 Performed By: #### L 3410.9992, L500.2500, L506.1001, L509.1000, L501.2300, L501.5200, L3100.3450 #### [facility] [address] [place], [address] Creatinine [Moles/Vol]Ordere d By: Todd Velasquez on 12-10-2024 Creatinine [Mass/Vol] 0.6 mg/dL 0.6-1.0 [facility] Erythrocyte distribution wid th (RBC) [Ratio]Ordered By: Todd Velasquez on 12-10-2024 Erythrocyte distribution width (RBC) [Entitic vol] 43.0 fL 35.1-43.9 [facility] Erythrocyte distribution wid th ratioOrdered By: Todd Velasquez on 12-10-2024 Erythrocyte distribution width (RBC) [Ratio] 13.2 % 11.6-14.6 [facility] Erythrocyte distribution wid th standard deviationOrdered By: Todd Velasquez on 12-10-2024 Erythrocyte distribution width (RBC) [Ratio] 43.0 fl 35.1-43.9 [facility] GFR/1.73 sq M.predicted miguel g non-blacks MDRD (S/P/Bld) [Vol rate/Area]Ordered By: Todd Velasquez on 12-10-2024 Estimated GFR (MDRD) Non-Af Amer 95 >60 [facility] Comment on above: mL/min/1.73m2 CKD-EP I Creatinine Equation (2020) Glomerular filtration rate ( GFR) estimation/1.73 sq m using serum, plasma, or whole bOrdered By: Todd Velasquez on 12-10-2024 GFR/1.73 sq M.predicted among non-blacks MDRD (S/P/Bld) [Vol rate/Area] 95 mL/min/{1.73_m2} >60 [facility] Comment on above: mL/min/1.73m2 CKD-EP I Creatinine Equation (2020) Hematocrit Auto (Bld) [Volum e fraction]Ordered By: Todd Velasquez on 12-10-2024 Hematocrit (Bld) [Volume fraction] 31.1 % Low 37-47 [facility] Hemoglobin measurementOrdere d By: Todd Velasquez on 12-10-2024 Hemoglobin (Bld) [Mass/Vol] 10.1 g/dL Low 12.0-15.0 [facility] - Chemistry and C hemistry - challengeOrdered By: Todd Velasquez on 12-10-2024 AST [Catalytic activity/Vol] 34 U/L High <32 [facility] MCV (mean corpuscular volume ) determinationOrdered By: Todd Velasquez on 12-10-2024 MCV (RBC) [Entitic vol] 89.1 fL 81-99 [facility] Mean corpuscular hemoglobin (MCH) determinationOrdered By: Todd Velasquez on 12-10-2024 MCH (RBC) [Entitic mass] 28.9 pg 27.0-32.0 [facility] Mean corpuscular hemoglobin concentration (MCHC) determinationOrdered By: Todd Velasquez on 12-10-2024 MCHC (RBC) [Mass/Vol] 32.5 g/dL 32-36 [facility] Mean platelet volume determi nationOrdered By: Todd Velasquez on 12-10-2024 Platelet mean volume (Bld) [Entitic vol] 11.9 fL 6.2-12.0 [facility] Platelet countOrdered By: Whitley on 12-10-2024 Platelets (Bld) [#/Vol] 177 10*3/uL 150-450 [facility] RBC Auto (Bld) [#/Vol]Ordere d By: Todd Velasquez on 12-10-2024 RBC (Bld) [#/Vol] 3.49 10*6/uL Low 4.2-5.4 [facility] Serum globulin measurementOr dered By: Todd Velasquez on 12-10-2024 Globulin (S) [Mass/Vol] 2.7 g/dL 2.2-4.2 [facility] Serum glucose measurement (m ass/volume)Ordered By: Todd Velasquez on 12-10-2024 Glucose [Mass/Vol] 92 mg/dL 70-99 [facility] Serum or plasma alanine ignacio otransferase (ALT) measurementOrdered By: Todd Velasquez on 12-10-2024 ALT [Catalytic activity/Vol] 14 U/L <35 [facility] Serum or plasma albumin jacob urement (mass/volume)Ordered By: Todd Velasquez on 12-10-2024 Albumin [Mass/Vol] 3.6 g/dL 3.4-4.8 [facility] Serum or plasma albumin/glob ulin mass ratioOrdered By: Todd Velasquez on 12-10-2024 Albumin/Globulin [Mass ratio] 1.3 {ratio} 0.9-2.4 [facility] Serum or plasma alkaline phillip sphatase measurementOrdered By: Todd Velasquez on 12-10-2024 ALP [Catalytic activity/Vol] 118 U/L High 35-104 [facility] Serum or plasma anion gap de termination (moles/volume)Ordered By: Todd Velasquez on 12-10-2024 Anion gap [Moles/Vol] 11 mmol/L 5-15 [facility] Serum or plasma calcium jacob urement (mass/volume)Ordered By: Todd Velasquez on 12-10-2024 Calcium [Mass/Vol] 8.9 mg/dL 7.6-11.0 [facility] Serum or plasma creatinine m easurement (moles/volume)Ordered By: Todd Velasquez on 12-10-2024 Creatinine [Moles/Vol] 0.6 mg/dL 0.6-1.0 [facility] Serum or plasma potassium me asurementOrdered By: Todd Velasquez on 12-10-2024 Potassium [Moles/Vol] 4.1 mmol/L 3.3-5.1 [facility] Serum or plasma sodium measu rement (moles/volume)Ordered By: Todd Velasquez on 12-10-2024 Sodium [Moles/Vol] 140 mmol/L 133-145 [facility] Serum or plasma urea nitroge n measurement (mass/volume)Ordered By: Todd Velasquez on 12-10-2024 Urea nitrogen [Mass/Vol] 11 mg/dL 4-19 [facility] Total proteinOrdered By: Ignacia Velasquez on 12-10-2024 Protein [Mass/Vol] 6.3 g/dL 5.9-8.4 [facility] White blood cell (WBC) count Ordered By: Todd Velasquez on 12-10-2024 WBC (Bld) [#/Vol] 6.6 10*3/uL 4.4-11.0 [facility] 30on 12-08-2024 30 Problem: Knowledge Deficit Goal: [...] Interventions Goal: Assess Nutritional Intake Outcome: Completed [facility] 30 Problem: Knowledge Deficit Goal: Patient/family/caregiver demonstrates [...] Goal: Assess Nutritional Intake Outcome: Completed Normal [facility] 30 Problem: Knowledge Deficit Goal: Patient/family/caregiver demonstrates [...] Goal: Assess Nutritional Intake Outcome: Progressing Normal [facility] [id number] 12-08-2024 [id number] Next Site of Care Admission Date: 12/03/2024 06:35 PM Patient Name: KATHEYRN CHINO Location: [place] [id number] [facility] [id number] A Date of : 1945 -------- Placement Information -------- Referral Type:Fpc/SNF - Return Referral ID:[id number] Provider Name:[place]. Address 1:[address] [facility] Address 2: City:[place] Selection Factors:Returning to Facility State:[place] [facility] [id number] MAR & Discharge med list transmitted to SNF Return - [facility] via VDP per TCC request. Electronically signed by NARGIS Mccain [facility] [phone] Transport requested in [employer]. Awaiting time confirmation. Confirmed pickup time of 3:00 by transport [employer] at phone number . Location of facility drop off is [facility]. Facility notified via VDP, Martine Glasgow notified on secure chat. [facility] [phone] Pt is stable for DC to return to [facility]. [facility] tasked to arrange transport and to send DC notes/MAR to SNF. Transport arranged for 3:00 today. Pt's brother called, Danny [phone], updates given. Normal [facility] BASIC METABOLIC PANELon 02-2 Anion gap [Moles/Vol] 6 mmol/L Normal 3-13 [facility] Comment on above: Performed By: #### L [id number], [id number] #### Security Assurance Specialist: JACKI MANCILLA ([phone]) [facility] ([facility]) [address] [place] [address] Calcium [Mass/Vol] 8.7 mg/dL Low 8.8-10.0 [facility] Comment on above: Performed By: #### L AB239, [id number] #### Security Assurance Specialist: JACKI MANCILLA ([phone]) [facility] ([facility]) [address] [place] [address] Chloride [Moles/Vol] 108 mmol/L High 98-107 [facility] Comment on above: Performed By: #### L AB239, [id number] #### Security Assurance Specialist: JACKI MANCILLA ([phone]) [facility] ([facility]) [address] [place] [address] CO2 [Moles/Vol] 26 mmol/L Normal 23-31 [facility] Comment on above: Performed By: #### L AB239, [id number] #### Security Assurance Specialist: JACKI MANCILLA ([phone]) [facility]) [address] [place] [address] Creatinine [Mass/Vol] 0.64 mg/dL Normal 0.57-1.11 [facility] Comment on above: Performed By: #### L AB239, [id number] #### Security Assurance Specialist: JACKI MANCILLA ([phone]) [facility]) [address] [place] [address] GLOMERULAR FILTRATION RATE ML/MIN/1.73 SQ M.PREDICTED >90.0 Normal >60.0 [facility] Comment on above: Result Comment: Calc ulation based on the Chronic Kidney Disease Epidemiology Collaboration (CKD-EPI) equation refit without adjustment for race Performed By: #### L ELLE, [id number] #### Security Assurance Specialist: JACKI MANCILLA ([phone]) [facility] ([facility]) [address] [place] [address] Glucose [Mass/Vol] 87 mg/dL Normal 82-115 [facility] Comment on above: Performed By: #### Ailyn ALMEIDA, [id number] #### Security Assurance Specialist: JACKI MANCILLA ([phone]) [facility] ([facility]) [address] [place] [address] Potassium [Moles/Vol] 3.9 mmol/L Normal 3.5-5.1 [facility] Comment on above: Result Comment: [facility] potassium values may be up to 0.5 mmol/L lower than serum values. Performed By: #### Ailyn ALMEIDA, [id number] #### Security Assurance Specialist: JACKI MANCILLA ([phone]) [facility] ([facility]) [address] [place] [address] Sodium [Moles/Vol] 140 mmol/L Normal 136-145 [facility] Comment on above: Performed By: #### Ailyn ALMEIDA, [id number] #### Security Assurance Specialist: JACKI MANCILLA ([phone]) [facility]) [address] [place] [address] Urea nitrogen [Mass/Vol] 10 mg/dL Normal 9-23 [facility] Comment on above: Performed By: #### Ailyn ALMEIDA, [id number] #### Security Assurance Specialist: JACKI MANCILLA ([phone]) [facility] ([facility]) [address] [place] [address] Bacteria identified Cx Nom ( Bld)on 12-08-2024 Interpretation and review of laboratory results Normal [facility] Blood Collection Sit e: Left Forearm [facility] Blood Collection Sit e: Left Hand [facility] Basic metabolic 1998 panelon 12-08-2024 Anion gap [Moles/Vol] 6 mmol/L 3 - 13 mmol/L [facility] Calcium [Mass/Vol] 8.7 mg/dL Low 8.8 - 10. 0 mg/dL [facility] Chloride [Moles/Vol] 108 mmol/L High 98 - 10 7 mmol/L [facility] CO2 [Moles/Vol] 26 mmol/L 23 - 31 mmol/L [facility] Creatinine [Mass/Vol] 0.64 mg/dL 0.57 - 1.11 mg/dL [facility] GFR/1.73 sq M.predicted (S/P/Bld) [Vol rate/Area] - PINF [facility] Comment on above: Calculation based on the Chronic Kidney Disease Epidemiology Collaboration (CKD-EPI) equation refit without adjustment for race Glucose [Mass/Vol] 87 mg/dL 82 - 115 mg/dL [facility] Interpretation and review of laboratory results Abnormal [facility] Potassium [Moles/Vol] 3.9 mmol/L 3.5 - 5.1 mmol/L [facility] Comment on above: Plasma potassium radha ues may be up to 0.5 mmol/L lower than serum values. Sodium [Moles/Vol] 140 mmol/L 136 - 145 mmol/L [facility] Urea nitrogen [Mass/Vol] 10 mg/dL 9 - 23 mg/dL [facility] CBC W Auto Differential pane l (Bld)on 12-08-2024 Basophils (Bld) [#/Vol] 0 10*3/uL 0.0 - 0.2 10*3/uL [facility] Basophils/100 WBC (Bld) 0.5 % 0.0 - 2.0 % [facility] Eosinophils (Bld) [#/Vol] 0.1 10*3/uL 0.0 - 0.5 10*3/uL [facility] Eosinophils/100 WBC (Bld) 1.5 % 0.0 - 6.0 % [facility] Erythrocyte distribution width (RBC) [Ratio] 13.1 % 11.5 - 15.0 % [facility] Hematocrit (Bld) [Volume fraction] 30.8 % Low 35.0 - 47.0 % [facility] Hemoglobin (Bld) [Mass/Vol] 9.9 g/dL Low 11.7 - 16.0 g/dL [facility] Immature granulocytes (Bld) [#/Vol] 0 10*3/uL NINF - 0.1 10*3/uL [facility] Immature granulocytes/100 WBC (Bld) 0.3 % 0.0 - 2.0 % [facility] [employer] Interpretation and review of laboratory results Abnormal [facility] [employer] Lymphocytes (Bld) [#/Vol] 2.1 10*3/uL 1.0 - 4.3 10*3/uL [facility] Lymphocytes/100 WBC (Bld) 35.7 % 15.0 - 45.0 % [facility] [employer] MCH (RBC) [Entitic mass] 28.7 pg 26. 0 - 34.0 pg [facility] MCHC (RBC) [Mass/Vol] 32.1 % 30.5 - 36.0 % [facility] MCV (RBC) [Entitic vol] 89.3 fL 77.0 - 99.0 fL [facility] [employer] Monocytes (Bld) [#/Vol] 0.5 10*3/uL 0.0 - 0.9 10*3/uL [facility] Monocytes/100 WBC (Bld) 9 % 5.0 - 13.0 % [facility] [employer] Neutrophils (Bld) [#/Vol] 3.1 10*3/uL 1.8 - 7.5 10*3/uL [facility] Neutrophils/100 WBC (Bld) 53 % 38.0 - 82.0 % [facility] [employer] Nucleated RBC/100 WBC (Bld) [Ratio] 0 % [facility] [employer] Platelet mean volume (Bld) [Entitic vol] 11.9 fL 9.0 - 12.7 fL [facility] Platelets (Bld) [#/Vol] 165 10*3/uL 140 - 440 10*3/uL [facility] RBC (Bld) [#/Vol] 3.45 10*6/uL Low 3.80 - 5.20 10*6/uL [facility] WBC (Bld) [#/Vol] 5.9 10*3/uL 3.6 - 10.7 10*3/uL [facility] CBC WITH AUTO DIFFERENTIALon 12-08-2024 Basophils (Bld) [#/Vol] 0.0 10*3/uL Normal 0.0-0.2 [facility] Comment on above: Performed By: #### L [id number] ####Security Assurance Specialist: JACKI MANCILLA ([phone])[facility] ([address] Basophils/100 WBC (Bld) 0.5 % Normal 0.0-2.0 [facility] Comment on above: Performed By: #### L [id number] ####Security Assurance Specialist: JACKI MANCILLA ([phone])[facility])[address] [place] [address] Eosinophils (Bld) [#/Vol] 0.1 10*3/uL Normal 0.0-0.5 [facility] Comment on above: Performed By: #### L [id number] ####Security Assurance Specialist: JACKI MANCILLA ([phone])[facility])[address] [place] [address] Eosinophils/100 WBC (Bld) 1.5 % Normal 0.0-6.0 [facility] Comment on above: Performed By: #### L [id number] ####Security Assurance Specialist: JACKI MANCILLA ([phone])[facility])[address] [place] [address] Erythrocyte distribution width (RBC) [Ratio] 13.1 % Normal 11.5-15.0 [facility] Comment on above: Performed By: #### L [id number] ####Security Assurance Specialist: JACKI MANCILLA ([phone])[facility])[address] [place] [address] Hematocrit (Bld) [Volume fraction] 30.8 % Low 35.0-47.0 [facility] Comment on above: Performed By: #### L [id number] ####Security Assurance Specialist: JACKI MANCILLA ([phone])[facility])[address] [place] [address] Hemoglobin (Bld) [Mass/Vol] 9.9 g/dL Low 11.7-16.0 [facility] Comment on above: Performed By: #### L [id number] ####Security Assurance Specialist: JACKI MANCILLA ([phone])[facility])[address] [place] [address] IMMATURE GRANS % 0.3 % Normal 0.0-2.0 [facility] Comment on above: Performed By: #### L [id number] ####Security Assurance Specialist: JACKI MANCILLA ([phone])[address] IMMATURE GRANS ABSOLUTE 0.0 10*3/uL Normal <0.1 [facility] Comment on above: Performed By: #### L [id number] ####Security Assurance Specialist: JACKI MANCILLA ([phone])[address] Lymphocytes (Bld) [#/Vol] 2.1 10*3/uL Normal 1.0-4.3 [facility] Comment on above: Performed By: #### L [id number] ####Security Assurance Specialist: JACKI MANCILLA ([phone])[address] Lymphocytes/100 WBC (Bld) 35.7 % Normal 15.0-45.0 [facility] Comment on above: Performed By: #### L [id number] ####Security Assurance Specialist: JACKI MANCILLA ([phone])[facility])[address] [place] [address] MCH (RBC) [Entitic mass] 28.7 pg Normal 26.0-34.0 [facility] Comment on above: Performed By: #### L [id number] ####Security Assurance Specialist: JACKI MANCILLA ([phone])[address] MCHC 32.1 % Normal 30.5-36.0 [facility] Comment on above: Performed By: #### L [id number] ####Security Assurance Specialist: JACKI MANCILLA ([phone])[address] MCV (RBC) [Entitic vol] 89.3 fL Normal 77.0-99.0 [facility] Comment on above: Performed By: #### L [id number] ####Security Assurance Specialist: JACKI [phone])[facility] ([facility])[address] [place] [address] Monocytes (Bld) [#/Vol] 0.5 10*3/uL Normal 0.0-0.9 [facility] Comment on above: Performed By: #### L [id number] ####Security Assurance Specialist: JACKI MANCILLA ([phone])[facility] ([facility])[address] [place] [address] Monocytes/100 WBC (Bld) 9.0 % Normal 5.0-13.0 [facility] Comment on above: Performed By: #### L [id number] ####Security Assurance Specialist: JACKI MANCILLA ([phone])[facility])[address] [place] [address] NEUTROPHILS ABSOLUTE 3.1 10*3/uL Normal 1.8-7.5 [facility] Comment on above: Performed By: #### L [id number] ####Security Assurance Specialist: JACKI MANCILLA ([phone])[facility] ([facility])[address] [place] [address] Neutrophils/100 WBC (Bld) 53.0 % Normal 38.0-82.0 [facility] Comment on above: Performed By: #### L [id number] ####Security Assurance Specialist: JACKI MANCILLA ([phone])[facility] ([facility])[address] [place] [address] NRBC 0.0 /100 WBCs Normal 0.0-2.0 [facility] Comment on above: Performed By: #### L [id number] ####Security Assurance Specialist: JACKI MANCILLA ([phone])[facility] ([facility])[address] [place] [address] Platelet mean volume (Bld) [Entitic vol] 11.9 fL Normal 9.0-12.7 [facility] Comment on above: Performed By: #### L [id number] ####Security Assurance Specialist: JACKI MANCILLA ([phone])[facility] ([facility])[address] [place] [address] [place] Platelets (Bld) [#/Vol] 165 10*3/uL Normal 140-440 [facility] Comment on above: Performed By: #### L [id number] ####Security Assurance Specialist: JACKI MANCILLA ([phone])[facility] ([facility])[address] [place] [address] RBC (Bld) [#/Vol] 3.45 10*6/uL Low 3.80-5.20 [facility] Comment on above: Performed By: #### L [id number] ####Security Assurance Specialist: JACKI MANCILLA ([phone])[facility] ([facility])[address] [place] [address] WBC (Bld) [#/Vol] 5.9 10*3/uL Normal 3.6-10.7 [facility] Comment on above: Performed By: #### L [id number] ####Security Assurance Specialist: JACKI MANCILLA ([phone])[facility])[address] [place] [address] Laboratory - Microbiology an d Antimicrobial susceptibilityon 12-08-2024 Bacteria identified Cx Nom (Bld) No growth at 5 days [facility] 30on 12-07-2024 30 Problem: Knowledge Deficit [...] Goal: Assess Nutritional Intake Outcome: Progressing Normal [facility] BASIC METABOLIC PANELon 11-16 Anion gap [Moles/Vol] 7 mmol/L Normal 3-13 [facility] Comment on above: Performed By: #### L [id number] ####Security Assurance Specialist: JACKI MANCILLA ([phone])[facility])[address] [place] [address] Calcium [Mass/Vol] 9.0 mg/dL Normal 8.8-10.0 [facility] Comment on above: Performed By: #### L [id number] ####Security Assurance Specialist: JACKI MANCILLA ([phone])[facility] ([facility])[address] [place] [address] Chloride [Moles/Vol] 110 mmol/L High 98-107 [facility] Comment on above: Performed By: #### L [id number] ####Security Assurance Specialist: JACKI MANCILLA ([phone])[facility])[address] [place] [address] CO2 [Moles/Vol] 25 mmol/L Normal 23-31 [facility] Comment on above: Performed By: #### L [id number] ####Security Assurance Specialist: JACKI MANCILLA ([phone])[facility])[address] [place] [address] Creatinine [Mass/Vol] 0.64 mg/dL Normal 0.57-1.11 [facility] Comment on above: Performed By: #### L AB15 ####Security Assurance Specialist: JACKI MANCILLA ([phone])[facility])[address] [place] [address] GLOMERULAR FILTRATION RATE ML/MIN/1.73 SQ M.PREDICTED >90.0 Normal >60.0 [facility] Comment on above: Result Comment: Calc ulation based on the Chronic Kidney Disease Epidemiology Collaboration (CKD-EPI) equation refit without adjustment for race Performed By: #### L [id number] ####Security Assurance Specialist: JACKI MANCILLA ([phone])[facility])[address] [place] [address] Glucose [Mass/Vol] 90 mg/dL Normal 82-115 [facility] Comment on above: Performed By: #### L [id number] ####Security Assurance Specialist: JACKI MANCILLA ([phone])[facility])[address] [place] [address] Potassium [Moles/Vol] 3.9 mmol/L Normal 3.5-5.1 [facility] Comment on above: Result Comment: [facility] potassium values may be up to 0.5 mmol/L lower than serum values. Performed By: #### L AB15 ####Security Assurance Specialist: JACKI [phone])[facility] ([facility])[address] [place] [address] Sodium [Moles/Vol] 142 mmol/L Normal 136-145 [facility] Comment on above: Performed By: #### L AB15 ####Security Assurance Specialist: JACKI MANCILLA ([phone])[facility] ([facility])[address] [place] [address] Urea nitrogen [Mass/Vol] 12 mg/dL Normal 9-23 [facility] Comment on above: Performed By: #### L AB15 ####Security Assurance Specialist: JACKI MANCILLA ([phone])[facility] ([facility])[address] [place] [address] Basic metabolic 1998 panelon 12-07-2024 Anion gap [Moles/Vol] 7 mmol/L 3 - 13 mmol/L [facility] Calcium [Mass/Vol] 9 mg/dL 8.8 - 10. 0 mg/dL [facility] Chloride [Moles/Vol] 110 mmol/L High 98 - 10 7 mmol/L [facility] CO2 [Moles/Vol] 25 mmol/L 23 - 31 mmol/L [facility] Creatinine [Mass/Vol] 0.64 mg/dL 0.57 - 1.11 mg/dL [facility] GFR/1.73 sq M.predicted (S/P/Bld) [Vol rate/Area] - PINF [facility] Comment on above: Calculation based on the Chronic Kidney Disease Epidemiology Collaboration (CKD-EPI) equation refit without adjustment for race Glucose [Mass/Vol] 90 mg/dL 82 - 115 mg/dL [facility] Interpretation and review of laboratory results Abnormal [facility] Potassium [Moles/Vol] 3.9 mmol/L 3.5 - 5.1 mmol/L [facility] Comment on above: Plasma potassium radha ues may be up to 0.5 mmol/L lower than serum values. Sodium [Moles/Vol] 142 mmol/L 136 - 145 mmol/L [facility] Urea nitrogen [Mass/Vol] 12 mg/dL 9 - 23 mg/dL [facility] CBC W Auto Differential pane l (Bld)on 12-07-2024 Basophils (Bld) [#/Vol] 0 10*3/uL 0.0 - 0.2 10*3/uL [facility] Basophils/100 WBC (Bld) 0.5 % 0.0 - 2.0 % [facility] Eosinophils (Bld) [#/Vol] 0.1 10*3/uL 0.0 - 0.5 10*3/uL [facility] Eosinophils/100 WBC (Bld) 1.2 % 0.0 - 6.0 % [facility] Erythrocyte distribution width (RBC) [Ratio] 13.2 % 11.5 - 15.0 % [facility] Hematocrit (Bld) [Volume fraction] 32.1 % Low 35.0 - 47.0 % [facility] Hemoglobin (Bld) [Mass/Vol] 10.4 g/dL Low 11.7 - 16.0 g/dL [facility] Immature granulocytes (Bld) [#/Vol] 0 10*3/uL NINF - 0.1 10*3/uL [facility] Immature granulocytes/100 WBC (Bld) 0.2 % 0.0 - 2.0 % [facility] Interpretation and review of laboratory results Abnormal [facility] Lymphocytes (Bld) [#/Vol] 2.1 10*3/uL 1.0 - 4.3 10*3/uL [facility] Lymphocytes/100 WBC (Bld) 35 % 15.0 - 45.0 % [facility] MCH (RBC) [Entitic mass] 28.1 pg 26. 0 - 34.0 pg [facility] MCHC (RBC) [Mass/Vol] 32.4 % 30.5 - 36.0 % [facility] MCV (RBC) [Entitic vol] 86.8 fL 77.0 - 99.0 fL [facility] Monocytes (Bld) [#/Vol] 0.6 10*3/uL 0.0 - 0.9 10*3/uL [facility] Monocytes/100 WBC (Bld) 10.1 % 5.0 - 13.0 % [facility] Neutrophils (Bld) [#/Vol] 3.2 10*3/uL 1.8 - 7.5 10*3/uL [facility] Neutrophils/100 WBC (Bld) 53 % 38.0 - 82.0 % [facility] Nucleated RBC/100 WBC (Bld) [Ratio] 0 % [facility] Platelet mean volume (Bld) [Entitic vol] 11.5 fL 9.0 - 12.7 fL [facility] Platelets (Bld) [#/Vol] 169 10*3/uL 140 - 440 10*3/uL [facility] RBC (Bld) [#/Vol] 3.7 10*6/uL Low 3.80 - 5.20 10*6/uL [facility] WBC (Bld) [#/Vol] 6.1 10*3/uL 3.6 - 10.7 10*3/uL [facility] CBC WITH AUTO DIFFERENTIALon 12-07-2024 Basophils (Bld) [#/Vol] 0.0 10*3/uL Normal 0.0-0.2 [facility] Comment on above: Performed By: #### L [id number] ####Security Assurance Specialist: JACKI MANCILLA ([phone])[facility])[address] [place] [address] Basophils/100 WBC (Bld) 0.5 % Normal 0.0-2.0 [facility] Comment on above: Performed By: #### L [id number] ####Security Assurance Specialist: JACKI MANCILLA ([phone])[facility])[address] [place] [address] Eosinophils (Bld) [#/Vol] 0.1 10*3/uL Normal 0.0-0.5 [facility] Comment on above: Performed By: #### L [id number] ####Security Assurance Specialist: JACKI MANCILLA ([phone])[facility])[address] [place] [address] Eosinophils/100 WBC (Bld) 1.2 % Normal 0.0-6.0 [facility] Comment on above: Performed By: #### L [id number] ####Security Assurance Specialist: JACKI MANCILLA ([phone])[facility])[address] [place] [address] Erythrocyte distribution width (RBC) [Ratio] 13.2 % Normal 11.5-15.0 [facility] Comment on above: Performed By: #### L [id number] ####Security Assurance Specialist: JACKI MANCILLA ([phone])[facility])[address] [place] [address] Hematocrit (Bld) [Volume fraction] 32.1 % Low 35.0-47.0 [facility] Comment on above: Performed By: #### L [id number] ####Security Assurance Specialist: JACKI MANCILLA ([phone])[facility])[address] [place] [address] Hemoglobin (Bld) [Mass/Vol] 10.4 g/dL Low 11.7-16.0 [facility] Comment on above: Performed By: #### L [id number] ####Security Assurance Specialist: JACKI MANCILLA ([phone])[address] IMMATURE GRANS % 0.2 % Normal 0.0-2.0 [facility] Comment on above: Performed By: #### L [id number] ####Security Assurance Specialist: JACKI MANCILLA ([phone])[facility])[address] [place] [address] IMMATURE GRANS ABSOLUTE 0.0 10*3/uL Normal <0.1 [facility] Comment on above: Performed By: #### L [id number] ####Security Assurance Specialist: JACKI MANCILLA ([phone])[address] Lymphocytes (Bld) [#/Vol] 2.1 10*3/uL Normal 1.0-4.3 [facility] Comment on above: Performed By: #### L [id number] ####Security Assurance Specialist: JACKI MANCILLA ([phone])[facility])[address] [place] [address] Lymphocytes/100 WBC (Bld) 35.0 % Normal 15.0-45.0 [facility] Comment on above: Performed By: #### L [id number] ####Security Assurance Specialist: JACKI MANCILLA ([phone])[facility] [address] MCH (RBC) [Entitic mass] 28.1 pg Normal 26.0-34.0 [facility] Comment on above: Performed By: #### L [id number] ####Security Assurance Specialist: JACKI MANCILLA ([phone])[facility])[address] [place] [address] MCHC 32.4 % Normal 30.5-36.0 [facility] Comment on above: Performed By: #### L [id number] ####Security Assurance Specialist: JACKI MANCILLA ([phone])[facility] ([facility])[address] [place] [address] MCV (RBC) [Entitic vol] 86.8 fL Normal 77.0-99.0 [facility] Comment on above: Performed By: #### L [id number] ####Security Assurance Specialist: JACKI MACNILLA ([phone])[facility] ([facility])[address] [place] [address] Monocytes (Bld) [#/Vol] 0.6 10*3/uL Normal 0.0-0.9 [facility] Comment on above: Performed By: #### L [id number] ####Security Assurance Specialist: JACKI MANCILLA ([phone])[facility])[address] [place] [address] Monocytes/100 WBC (Bld) 10.1 % Normal 5.0-13.0 [facility] Comment on above: Performed By: #### L [id number] ####Security Assurance Specialist: JACKI MANCILLA ([phone])[facility])[address] [place] [address] NEUTROPHILS ABSOLUTE 3.2 10*3/uL Normal 1.8-7.5 [facility] Comment on above: Performed By: #### L [id number] ####Security Assurance Specialist: JACKI MANCILLA ([phone])[facility])[address] [place] [address] Neutrophils/100 WBC (Bld) 53.0 % Normal 38.0-82.0 [facility] Comment on above: Performed By: #### L [id number] ####Security Assurance Specialist: JACKI MANCILLA ([phone])[facility])[address] [place] [address] NRBC 0.0 /100 WBCs Normal 0.0-2.0 [facility] Comment on above: Performed By: #### L [id number] ####Security Assurance Specialist: JACKI MANCILLA ([phone])[facility] ([facility])[address] [place] [address] Platelet mean volume (Bld) [Entitic vol] 11.5 fL Normal 9.0-12.7 [facility] Comment on above: Performed By: #### L [id number] ####Security Assurance Specialist: JACKI MANCILLA ([phone])[facility])[address] [place] [address] Platelets (Bld) [#/Vol] 169 10*3/uL Normal 140-440 [facility] Comment on above: Performed By: #### L [id number] ####Security Assurance Specialist: JACKI MANCILLA ([phone])[facility] ([facility])[address] [place] [address] RBC (Bld) [#/Vol] 3.70 10*6/uL Low 3.80-5.20 [facility] Comment on above: Performed By: #### L [id number] ####Security Assurance Specialist: JACKI MANCILLA ([phone])[facility])[address] [place] [address] WBC (Bld) [#/Vol] 6.1 10*3/uL Normal 3.6-10.7 [facility] Comment on above: Performed By: #### L [id number] ####Security Assurance Specialist: JACKI MANCILLA ([phone])[facility])[address] [place] [address] 30on 12-06-2024 30 Problem: Knowledge Deficit Goal: [...] Maria Victoria Zapata RN Outcome: Progressing Normal [facility] 30 Problem: Knowledge Deficit Goal: Patient/family/caregiver demonstrates understanding of disease process, treatment plan, medications, and discharge instructions Outcome: Progressing Problem: Potential for Compromised Skin Integrity Goal: Skin Integrity is Maintained or Improved Outcome: Progressing Goal: Nutritional status is improving Outcome: Progressing Problem: Urinary Incontinence Goal: Perineal skin integrity is maintained or improved Outcome: Progressing Normal [facility] BASIC METABOLIC PANELon 11-16 Anion gap [Moles/Vol] 7 mmol/L Normal 3-13 [facility] Comment on above: Performed By: #### L [id number] ####Security Assurance Specialist: JACKI MANCILLA ([phone])[facility] ([address] Calcium [Mass/Vol] 8.8 mg/dL Normal 8.8-10.0 [facility] Comment on above: Performed By: #### L [id number] ####Security Assurance Specialist: JACKI MANCILLA ([phone])[facility] ([facility])[address] [place] [address] Chloride [Moles/Vol] 110 mmol/L High 98-107 [facility] Comment on above: Performed By: #### L [id number] ####Security Assurance Specialist: JACKI MANCILLA ([phone])[facility] ([facility])[address] [place] [address] CO2 [Moles/Vol] 24 mmol/L Normal 23-31 [facility] Comment on above: Performed By: #### L [id number] ####Security Assurance Specialist: JACKI MANCILLA ([phone])[facility])[address] [place] [address] Creatinine [Mass/Vol] 0.64 mg/dL Normal 0.57-1.11 [facility] Comment on above: Performed By: #### L [id number] ####Security Assurance Specialist: JACKI MANCILLA ([phone])[facility])[address] [place] [address] GLOMERULAR FILTRATION RATE ML/MIN/1.73 SQ M.PREDICTED >90.0 Normal >60.0 [facility] Comment on above: Result Comment: Calc ulation based on the Chronic Kidney Disease Epidemiology Collaboration (CKD-EPI) equation refit without adjustment for race Performed By: #### L [id number] ####Security Assurance Specialist: JACKI MANCILLA ([phone])[facility])[address] [place] [address] Glucose [Mass/Vol] 87 mg/dL Normal 82-115 [facility] Comment on above: Performed By: #### L [id number] ####Security Assurance Specialist: JACKI MANCILLA ([phone])[facility])[address] [place] [address] Potassium [Moles/Vol] 3.7 mmol/L Normal 3.5-5.1 [facility] Comment on above: Result Comment: [facility] potassium values may be up to 0.5 mmol/L lower than serum values. Performed By: #### L [id number] ####Security Assurance Specialist: JACKI MANCILLA ([phone])[facility])[address] [place] [address] Sodium [Moles/Vol] 141 mmol/L Normal 136-145 [facility] Comment on above: Performed By: #### L [id number] ####Security Assurance Specialist: JACKI MANCILLA ([phone])[facility])[address] [place] [address] Urea nitrogen [Mass/Vol] 12 mg/dL Normal 9-23 [facility] Comment on above: Performed By: #### L [id number] ####Security Assurance Specialist: JACKI MANCILLA ([phone])[facility] ([facility])[address] [place] [address] Bacteria identified Cx Nom ( U)Ordered By: Emily Ocampo on 12-06-2024 Interpretation and review of laboratory results Abnormal [facility] Basic metabolic 1998 panelon 12-06-2024 Anion gap [Moles/Vol] 7 mmol/L 3 - 13 mmol/L [facility] Calcium [Mass/Vol] 8.8 mg/dL 8.8 - 10. 0 mg/dL [facility] Chloride [Moles/Vol] 110 mmol/L High 98 - 10 7 mmol/L [facility] CO2 [Moles/Vol] 24 mmol/L 23 - 31 mmol/L [facility] Creatinine [Mass/Vol] 0.64 mg/dL 0.57 - 1.11 mg/dL [facility] GFR/1.73 sq M.predicted (S/P/Bld) [Vol rate/Area] - PINF [facility] Comment on above: Calculation based on the Chronic Kidney Disease Epidemiology Collaboration (CKD-EPI) equation refit without adjustment for race Glucose [Mass/Vol] 87 mg/dL 82 - 115 mg/dL [facility] Interpretation and review of laboratory results Abnormal [facility] Potassium [Moles/Vol] 3.7 mmol/L 3.5 - 5.1 mmol/L [facility] Comment on above: Plasma potassium radha ues may be up to 0.5 mmol/L lower than serum values. Sodium [Moles/Vol] 141 mmol/L 136 - 145 mmol/L [facility] Urea nitrogen [Mass/Vol] 12 mg/dL 9 - 23 mg/dL [facility] CBC W Auto Differential pane l (Bld)on 12-06-2024 Basophils (Bld) [#/Vol] 0 10*3/uL 0.0 - 0.2 10*3/uL [facility] Basophils/100 WBC (Bld) 0.6 % 0.0 - 2.0 % [facility] Eosinophils (Bld) [#/Vol] 0 10*3/uL 0.0 - 0.5 10*3/uL [facility] Eosinophils/100 WBC (Bld) 0.6 % 0.0 - 6.0 % [facility] Erythrocyte distribution width (RBC) [Ratio] 13 % 11.5 - 15.0 % [facility] Hematocrit (Bld) [Volume fraction] 33 % Low 35.0 - 47.0 % [facility] Hemoglobin (Bld) [Mass/Vol] 10.5 g/dL Low 11.7 - 16.0 g/dL [facility] Immature granulocytes (Bld) [#/Vol] 0 10*3/uL NINF - 0.1 10*3/uL [facility] Immature granulocytes/100 WBC (Bld) 0.2 % 0.0 - 2.0 % [facility] Interpretation and review of laboratory results Abnormal [facility] Lymphocytes (Bld) [#/Vol] 2 10*3/uL 1.0 - 4.3 10*3/uL [facility] Lymphocytes/100 WBC (Bld) 37 % 15.0 - 45.0 % [facility] MCH (RBC) [Entitic mass] 28.7 pg 26. 0 - 34.0 pg [facility] MCHC (RBC) [Mass/Vol] 31.8 % 30.5 - 36.0 % [facility] MCV (RBC) [Entitic vol] 90.2 fL 77.0 - 99.0 fL [facility] Monocytes (Bld) [#/Vol] 0.6 10*3/uL 0.0 - 0.9 10*3/uL [facility] Monocytes/100 WBC (Bld) 11 % 5.0 - 13.0 % [facility] Neutrophils (Bld) [#/Vol] 2.7 10*3/uL 1.8 - 7.5 10*3/uL [facility] Neutrophils/100 WBC (Bld) 50.6 % 38.0 - 82.0 % [facility] Nucleated RBC/100 WBC (Bld) [Ratio] 0 % [facility] Platelet mean volume (Bld) [Entitic vol] 11.7 fL 9.0 - 12.7 fL [facility] Platelets (Bld) [#/Vol] 158 10*3/uL 140 - 440 10*3/uL [facility] RBC (Bld) [#/Vol] 3.66 10*6/uL Low 3.80 - 5.20 10*6/uL [facility] WBC (Bld) [#/Vol] 5.3 10*3/uL 3.6 - 10.7 10*3/uL [facility] CBC WITH AUTO DIFFERENTIALon 12-06-2024 Basophils (Bld) [#/Vol] 0.0 10*3/uL Normal 0.0-0.2 [facility] Comment on above: Performed By: #### Ailyn ARANGO239, [id number] #### Security Assurance Specialist: JACKI MANCILLA ([phone]) [facility] ([facility]) [address] [place] [address] Basophils/100 WBC (Bld) 0.6 % Normal 0.0-2.0 [facility] Comment on above: Performed By: #### Ailyn ALMEIDA, [id number] #### Security Assurance Specialist: JACKI MANCILLA ([phone]) [facility] ([facility]) [address] [place] [address] [place] Eosinophils (Bld) [#/Vol] 0.0 10*3/uL Normal 0.0-0.5 [facility] Comment on above: Performed By: #### Ailyn ALMEIDA, [id number] #### Security Assurance Specialist: JACKI MANCILLA ([phone]) [facility]) [address] [place] [address] Eosinophils/100 WBC (Bld) 0.6 % Normal 0.0-6.0 [facility] Comment on above: Performed By: #### Ailyn ALMEIDA, [id number] #### Security Assurance Specialist: JACKI MANCILLA ([phone]) [facility]) [address] [place] [address] Erythrocyte distribution width (RBC) [Ratio] 13.0 % Normal 11.5-15.0 [facility] Comment on above: Performed By: #### Ailyn ARANGO239, [id number] #### Security Assurance Specialist: JACKI MANCILLA ([phone]) [facility]) [address] [place] [address] Hematocrit (Bld) [Volume fraction] 33.0 % Low 35.0-47.0 [facility] Comment on above: Performed By: #### Ailyn ABPrateek, [id number] #### Security Assurance Specialist: JACKI MANCILLA ([phone]) [facility]) [address] [place] [address] Hemoglobin (Bld) [Mass/Vol] 10.5 g/dL Low 11.7-16.0 [facility] Comment on above: Performed By: #### Ailyn ALMEIDA, [id number] #### Security Assurance Specialist: JACKI MANCILLA ([phone]) [facility]) [address] [place] [address] IMMATURE GRANS % 0.2 % Normal 0.0-2.0 [facility] Comment on above: Performed By: #### Ailyn ALMEIDA, [id number] #### Security Assurance Specialist: JACKI MANCILLA ([phone]) [facility]) [address] [place] [address] IMMATURE GRANS ABSOLUTE 0.0 10*3/uL Normal <0.1 [facility] Comment on above: Performed By: #### Ailyn ALMEIDA, [id number] #### Security Assurance Specialist: JACKI MANCILLA ([phone]) [facility] ([facility]) [address] [place] [address] Lymphocytes (Bld) [#/Vol] 2.0 10*3/uL Normal 1.0-4.3 [facility] Comment on above: Performed By: #### Ailyn ALMEIDA, [id number] #### Security Assurance Specialist: JACKI MANCILLA ([phone]) [facility]) [address] [place] [address] Lymphocytes/100 WBC (Bld) 37.0 % Normal 15.0-45.0 [facility] Comment on above: Performed By: #### Ailyn AB239, [id number] #### Security Assurance Specialist: JACKI MANCILLA ([phone]) [facility]) [address] [place] [address] MCH (RBC) [Entitic mass] 28.7 pg Normal 26.0-34.0 [facility] Comment on above: Performed By: #### Ailyn AB239, [id number] #### Security Assurance Specialist: JACKI MANCILLA ([phone]) [facility] ([facility]) [address] [place] [address] MCHC 31.8 % Normal 30.5-36.0 [facility] Comment on above: Performed By: #### L AB239, [id number] #### Security Assurance Specialist: JACKI MANCILLA ([phone]) [facility] ([facility]) [address] [place] [address] MCV (RBC) [Entitic vol] 90.2 fL Normal 77.0-99.0 [facility] Comment on above: Performed By: #### L AB239, [id number] #### Security Assurance Specialist: JACKI MANCILLA ([phone]) [facility] ([facility]) [address] [place] [address] Monocytes (Bld) [#/Vol] 0.6 10*3/uL Normal 0.0-0.9 [facility] Comment on above: Performed By: #### Ailyn AB239, [id number] #### Security Assurance Specialist: JACKI MANCILLA ([phone]) [facility] ([facility]) [address] [place] [address] Monocytes/100 WBC (Bld) 11.0 % Normal 5.0-13.0 [facility] Comment on above: Performed By: #### Aiyln AB239, [id number] #### Security Assurance Specialist: JACKI MANCILLA ([phone]) [facility] ([facility]) [address] [place] [address] NEUTROPHILS ABSOLUTE 2.7 10*3/uL Normal 1.8-7.5 [facility] Comment on above: Performed By: #### L AB239, [id number] #### Security Assurance Specialist: JACKI MANCILLA ([phone]) [facility]) [address] [place] [address] Neutrophils/100 WBC (Bld) 50.6 % Normal 38.0-82.0 [facility] Comment on above: Performed By: #### L AB239, [id number] #### Security Assurance Specialist: JACKI MANCILLA ([phone]) [facility] ([facility]) [address] [place] [address] NRBC 0.0 /100 WBCs Normal 0.0-2.0 [facility] Comment on above: Performed By: #### Ailyn AB239, [id number] #### Security Assurance Specialist: JACKI MANCILLA ([phone]) [facility] ([facility]) [address] [place] [address] Platelet mean volume (Bld) [Entitic vol] 11.7 fL Normal 9.0-12.7 [facility] Comment on above: Performed By: #### Ailyn AB239, [id number] #### Security Assurance Specialist: JACKI MANCILLA ([phone]) [facility] ([facility]) [address] [place] [address] Platelets (Bld) [#/Vol] 158 10*3/uL Normal 140-440 [facility] Comment on above: Performed By: #### Ailyn AB239, [id number] #### Security Assurance Specialist: JACKI MANCILLA ([phone]) [facility] ([facility]) [address] [place] [address] RBC (Bld) [#/Vol] 3.66 10*6/uL Low 3.80-5.20 [facility] Comment on above: Performed By: #### Ailyn AB239, [id number] #### Security Assurance Specialist: JACKI MANCILLA ([phone]) [facility] ([facility]) [address] [place] [address] WBC (Bld) [#/Vol] 5.3 10*3/uL Normal 3.6-10.7 [facility] Comment on above: Performed By: #### L AB239, [id number] #### Security Assurance Specialist: JACKI MANCILLA ([phone]) [facility]) [address] [place] [address] Laboratory - Drug toxicology on 12-06-2024 Valproate [Mass/Vol] 20.4 ug/mL Low 50.0 - 100.0 mg/L [facility] Comment on above: Test Performed by Reji Chapin, [facility], [address] [place] [address] Jorge L Guerrero M.D., Ph.D., Director of Laboratories , [facility] [id number] Valproate Free [Mass/Vol] <4.0 Low 4.8 - 17.3 mg/L [facility] Comment on above: Note: Non-linear drug binding properties result in the fraction of Free Valproic Acid increasing as total drug increases. The free fraction may range from 5% to 25% for the total drug range of 30-160 mg/L. Laboratory - Microbiology an d Antimicrobial susceptibilityOrdered By: Emily Ocampo on 12-06-2024 Bacteria identified Cx Nom (U) Normal urogenital devyn present [facility] Bacteria identified Cx Nom (U) >100,000 CFU/mL Escherichia coli Abnormal [facility] Bacteria identified Cx Nom (U) >100,000 CFU/mL Aerococcus urinae Abnormal [facility] Comment on above: Susceptibility testi ng not routinely performed except on isolates from blood culture. Aerococcus species are generally susceptible to beta-lactams. Resistance to sulfonamides is common in Aerococcus urinae. Providers should call the [facility] obiology Laboratory ([phone]) within 3 days if susceptibility testing is required. No Panel Informationon 12-06 Interpretation and review of laboratory results Abnormal [facility] 30on 12-05-2024 30 Problem: Knowledge Deficit Goal: Patient/family/caregiver demonstrates understanding of disease process, treatment plan, medications, and discharge instructions Outcome: Progressing Problem: Potential for Compromised Skin Integrity Goal: Skin Integrity is Maintained or Improved Outcome: Progressing Goal: Nutritional status is improving Outcome: Progressing Problem: Urinary Incontinence Goal: Perineal skin integrity is maintained or improved Outcome: Progressing Normal [facility] [id number] 12-05-2024 [id number] Pt adm from [facility] SNF/LTC, with Sepsis 2nd to UTI. Plan is to return. Facility will adm pt back skilled under Medicare. Called pt's brother Danny, was called and updated. CM to follow. [facility] BASIC METABOLIC PANELon 11-16 Anion gap [Moles/Vol] 9 mmol/L Normal 3-13 [facility] Comment on above: Performed By: #### L [id number] #### Security Assurance Specialist: JACKI MANCILLA ([phone]) [facility] ([facility]) [address] [place] [address] Calcium [Mass/Vol] 8.2 mg/dL Low 8.8-10.0 [facility] Comment on above: Performed By: #### L AB15 #### Security Assurance Specialist: JACKI MANCILLA ([phone]) [facility] ([facility]) [address] [place] [address] Chloride [Moles/Vol] 110 mmol/L High 98-107 [facility] Comment on above: Performed By: #### L AB15 #### Security Assurance Specialist: JACKI MANCILLA ([phone]) [facility] ([facility]) [address] [place] [address] CO2 [Moles/Vol] 22 mmol/L Low 23-31 [facility] Comment on above: Performed By: #### L AB15 #### Security Assurance Specialist: JACKI MANCILLA ([phone]) [facility] ([facility]) [address] [place] [address] Creatinine [Mass/Vol] 0.68 mg/dL Normal 0.57-1.11 [facility] Comment on above: Performed By: #### L AB15 #### Security Assurance Specialist: JACKI MANCILLA ([phone]) [facility] ([facility]) [address] [place] [address] [place] GLOMERULAR FILTRATION RATE ML/MIN/1.73 SQ M.PREDICTED 89.8 mL/min/1.73m*2 Normal >60.0 [facility] Comment on above: Result Comment: Calc ulation based on the Chronic Kidney Disease Epidemiology Collaboration (CKD-EPI) equation refit without adjustment for race Performed By: #### L AB15 #### Security Assurance Specialist: JACKI MANCILLA ([phone]) [facility] ([facility]) [address] [place] [address] [place] Glucose [Mass/Vol] 86 mg/dL Normal 82-115 [facility] Comment on above: Performed By: #### L AB15 #### Security Assurance Specialist: JACKI MANCILAL ([phone]) [facility] ([facility]) [address] [place] [address] Potassium [Moles/Vol] 3.8 mmol/L Normal 3.5-5.1 [facility] Comment on above: Result Comment: [facility] potassium values may be up to 0.5 mmol/L lower than serum values. Performed By: #### L AB15 #### Security Assurance Specialist: JACKI MANCILLA ([phone]) [facility] ([facility]) [address] [place] [address] Sodium [Moles/Vol] 141 mmol/L Normal 136-145 [facility] Comment on above: Performed By: #### L AB15 #### Security Assurance Specialist: JACKI MANCILLA ([phone]) [facility] ([facility]) [address] [place] [address] Urea nitrogen [Mass/Vol] 13 mg/dL Normal 9-23 [facility] Comment on above: Performed By: #### L AB15 #### Security Assurance Specialist: JACKI MANCILLA ([phone]) [facility] ([facility]) [address] [place] [address] Basic metabolic 1998 panelon 12-05-2024 Anion gap [Moles/Vol] 9 mmol/L 3 - 13 mmol/L [facility] Calcium [Mass/Vol] 8.2 mg/dL Low 8.8 - 10. 0 mg/dL [facility] Chloride [Moles/Vol] 110 mmol/L High 98 - 10 7 mmol/L [facility] CO2 [Moles/Vol] 22 mmol/L Low 23 - 31 mmol/L [facility] Creatinine [Mass/Vol] 0.68 mg/dL 0.57 - 1.11 mg/dL [facility] GFR/1.73 sq M.predicted (S/P/Bld) [Vol rate/Area] 89.8 mL/min - PINF [facility] Comment on above: Calculation based on the Chronic Kidney Disease Epidemiology Collaboration (CKD-EPI) equation refit without adjustment for race Glucose [Mass/Vol] 86 mg/dL 82 - 115 mg/dL [facility] Interpretation and review of laboratory results Abnormal [facility] Potassium [Moles/Vol] 3.8 mmol/L 3.5 - 5.1 mmol/L [facility] Comment on above: Plasma potassium radha ues may be up to 0.5 mmol/L lower than serum values. Sodium [Moles/Vol] 141 mmol/L 136 - 145 mmol/L [facility] Urea nitrogen [Mass/Vol] 13 mg/dL 9 - 23 mg/dL [facility] CBC W Auto Differential pane l (Bld)on 12-05-2024 Basophils (Bld) [#/Vol] 0 10*3/uL 0.0 - 0.2 10*3/uL [facility] Basophils/100 WBC (Bld) 0.6 % 0.0 - 2.0 % [facility] Eosinophils (Bld) [#/Vol] 0 10*3/uL 0.0 - 0.5 10*3/uL [facility] Eosinophils/100 WBC (Bld) 0.5 % 0.0 - 6.0 % [facility] Erythrocyte distribution width (RBC) [Ratio] 13.3 % 11.5 - 15.0 % [facility] Hematocrit (Bld) [Volume fraction] 30.4 % Low 35.0 - 47.0 % [facility] Hemoglobin (Bld) [Mass/Vol] 9.6 g/dL Low 11.7 - 16.0 g/dL [facility] Immature granulocytes (Bld) [#/Vol] 0 10*3/uL NINF - 0.1 10*3/uL [facility] Immature granulocytes/100 WBC (Bld) 0.3 % 0.0 - 2.0 % [facility] Interpretation and review of laboratory results Abnormal [facility] Lymphocytes (Bld) [#/Vol] 2 10*3/uL 1.0 - 4.3 10*3/uL [facility] Lymphocytes/100 WBC (Bld) 32.3 % 15.0 - 45.0 % [facility] MCH (RBC) [Entitic mass] 28.5 pg 26. 0 - 34.0 pg [facility] MCHC (RBC) [Mass/Vol] 31.6 % 30.5 - 36.0 % [facility] MCV (RBC) [Entitic vol] 90.2 fL 77.0 - 99.0 fL [facility] Monocytes (Bld) [#/Vol] 0.8 10*3/uL 0.0 - 0.9 10*3/uL [facility] Monocytes/100 WBC (Bld) 12.8 % 5.0 - 13.0 % [facility] Neutrophils (Bld) [#/Vol] 3.3 10*3/uL 1.8 - 7.5 10*3/uL [facility] Neutrophils/100 WBC (Bld) 53.5 % 38.0 - 82.0 % [facility] Nucleated RBC/100 WBC (Bld) [Ratio] 0 % [facility] Platelet mean volume (Bld) [Entitic vol] 11.7 fL 9.0 - 12.7 fL [facility] Platelets (Bld) [#/Vol] 148 10*3/uL 140 - 440 10*3/uL [facility] RBC (Bld) [#/Vol] 3.37 10*6/uL Low 3.80 - 5.20 10*6/uL [facility] WBC (Bld) [#/Vol] 6.2 10*3/uL 3.6 - 10.7 10*3/uL [facility] CBC WITH AUTO DIFFERENTIALon 12-05-2024 Basophils (Bld) [#/Vol] 0.0 10*3/uL Normal 0.0-0.2 [facility] Comment on above: Performed By: #### L [id number] ####Security Assurance Specialist: JACKI [phone])[address] Basophils/100 WBC (Bld) 0.6 % Normal 0.0-2.0 S [facility] Comment on above: Performed By: #### L [id number] ####Security Assurance Specialist: JACKI [phone])[facility])[address] [place] [address] Eosinophils (Bld) [#/Vol] 0.0 10*3/uL Normal 0.0-0.5 [facility] Comment on above: Performed By: #### L [id number] ####Security Assurance Specialist: JACKI [phone])[facility])[address] [place] [address] Eosinophils/100 WBC (Bld) 0.5 % Normal 0.0-6.0 [facility] Comment on above: Performed By: #### L [id number] ####Security Assurance Specialist: JACKI MANCILLA ([phone])[facility])[address] [place] [address] Erythrocyte distribution width (RBC) [Ratio] 13.3 % Normal 11.5-15.0 [facility] Comment on above: Performed By: #### L [id number] ####Security Assurance Specialist: JACKI MANCILLA ([phone])[facility])[address] [place] [address] Hematocrit (Bld) [Volume fraction] 30.4 % Low 35.0-47.0 [facility] Comment on above: Performed By: #### L [id number] ####Security Assurance Specialist: JACKI MANCILLA ([phone])[facility])[address] [place] [address] Hemoglobin (Bld) [Mass/Vol] 9.6 g/dL Low 11.7-16.0 [facility] Comment on above: Performed By: #### L [id number] ####Security Assurance Specialist: JACKI MANCILLA ([phone])[facility])[address] [place] [address] IMMATURE GRANS % 0.3 % Normal 0.0-2.0 [facility] Comment on above: Performed By: #### L [id number] ####Security Assurance Specialist: JACKI MANCILLA ([phone])[facility])[address] [place] [address] IMMATURE GRANS ABSOLUTE 0.0 10*3/uL Normal <0.1 [facility] Comment on above: Performed By: #### L [id number] ####Security Assurance Specialist: JACKI MANCILLA ([phone])[facility])[address] [place] [address] Lymphocytes (Bld) [#/Vol] 2.0 10*3/uL Normal 1.0-4.3 [facility] Comment on above: Performed By: #### L [id number] ####Security Assurance Specialist: JACKI MANCILLA ([phone])[facility])[address] [place] [address] Lymphocytes/100 WBC (Bld) 32.3 % Normal 15.0-45.0 [facility] Comment on above: Performed By: #### L [id number] ####Security Assurance Specialist: JACKI MANCILLA ([phone])[facility])[address] [place] [address] MCH (RBC) [Entitic mass] 28.5 pg Normal 26.0-34.0 [facility] Comment on above: Performed By: #### L [id number] ####Security Assurance Specialist: JACKI MANCILLA ([phone])[facility])[address] [place] [address] MCHC 31.6 % Normal 30.5-36.0 [facility] Comment on above: Performed By: #### L [id number] ####Security Assurance Specialist: JACKI MANCILLA ([phone])[facility])[address] [place] [address] MCV (RBC) [Entitic vol] 90.2 fL Normal 77.0-99.0 [facility] Comment on above: Performed By: #### L [id number] ####Security Assurance Specialist: JACKI MANCILLA ([phone])[facility])[address] [place] [address] Monocytes (Bld) [#/Vol] 0.8 10*3/uL Normal 0.0-0.9 [facility] Comment on above: Performed By: #### L [id number] ####Security Assurance Specialist: JACKI MANCILLA ([phone])[facility])[address] [place] [address] Monocytes/100 WBC (Bld) 12.8 % Normal 5.0-13.0 [facility] Comment on above: Performed By: #### L [id number] ####Security Assurance Specialist: JACKI MANCILLA ([phone])[facility] ([facility])[address] [place] [address] NEUTROPHILS ABSOLUTE 3.3 10*3/uL Normal 1.8-7.5 [facility] Comment on above: Performed By: #### L [id number] ####Security Assurance Specialist: JACKI MANCILAL ([phone])[facility] ([facility])[address] [place] [address] Neutrophils/100 WBC (Bld) 53.5 % Normal 38.0-82.0 [facility] Comment on above: Performed By: #### L [id number] ####Security Assurance Specialist: JACKI MANCILLA ([phone])[facility] ([facility])[address] [place] [address] NRBC 0.0 /100 WBCs Normal 0.0-2.0 [facility] Comment on above: Performed By: #### L [id number] ####Security Assurance Specialist: JACKI MANCILLA ([phone])[facility] ([facility])[address] [place] [address] Platelet mean volume (Bld) [Entitic vol] 11.7 fL Normal 9.0-12.7 [facility] Comment on above: Performed By: #### L [id number] ####Security Assurance Specialist: JACKI MANCILLA ([phone])[facility] ([facility])[address] [place] [address] Platelets (Bld) [#/Vol] 148 10*3/uL Normal 140-440 [facility] Comment on above: Performed By: #### L [id number] ####Security Assurance Specialist: JACKI MANCILLA ([phone])[facility] ([facility])[address] [place] [address] RBC (Bld) [#/Vol] 3.37 10*6/uL Low 3.80-5.20 [facility] Comment on above: Performed By: #### L [id number] ####Security Assurance Specialist: JACKI MANCILLA ([phone])[facility] ([facility])[address] [place] [address] WBC (Bld) [#/Vol] 6.2 10*3/uL Normal 3.6-10.7 [facility] Comment on above: Performed By: #### L [id number] ####Security Assurance Specialist: JACKI MANCILLA ([phone])[facility] ([facility])[address] [place] [address] Progress Noteon 12-05-2024 Progress Note Nutrition rescreen completed. Patient referred to the Dietitian due to wound consult for pressure injury. 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 She met criteria for simple sepsis on admission. Neurology consulted for seizure management. Breakthrough seizure (witnessed 12/03) possibly 2/2 acute illness vs recent changes to AED regimen Idiopat (more content not included)... Normal [facility] 30on 12-04-2024 30 Problem: Knowledge Deficit Goal: Patient/family/caregiver demonstrates understanding of disease process, treatment plan, medications, and discharge instructions Outcome: Progressing Problem: Potential for Compromised Skin Integrity Goal: Skin Integrity is Maintained or Improved Outcome: Progressing Goal: Nutritional status is improving Outcome: Progressing Problem: Urinary Incontinence Goal: Perineal skin integrity is maintained or improved Outcome: Progressing Normal [facility] [id number] 12-04-2024 [id number] Pt discussed 12-04-24 during interdisciplinary rounds. Pt admitted from [facility] due to seizures. Pt has a history of seizure disorder. No needs anticipated but SW available as needs arise. Normal [facility] BASIC METABOLIC PANELon 02-2 -2024 Anion gap [Moles/Vol] 6 mmol/L Normal 3-13 [facility] Comment on above: Performed By: #### L AB24, LAB15 ####Security Assurance Specialist: JACKI MANCILLA ([phone])[facility])[address] [place] [address] Calcium [Mass/Vol] 7.8 mg/dL Low 8.8-10.0 [facility] Comment on above: Performed By: #### L AB24, LAB15 ####Security Assurance Specialist: JACKI MANCILLA ([phone])[facility])[address] [place] [address] Chloride [Moles/Vol] 113 mmol/L High 98-107 [facility] Comment on above: Performed By: #### L AB24, LAB15 ####Security Assurance Specialist: JACKI MANCILLA ([phone])[facility] ([facility])[address] [place] [address] CO2 [Moles/Vol] 21 mmol/L Low 23-31 [facility] Comment on above: Performed By: #### L AB24, LAB15 ####Security Assurance Specialist: JACKI MANCILLA ([phone])[facility] ([facility])[address] [place] [address] Creatinine [Mass/Vol] 0.73 mg/dL Normal 0.57-1.11 [facility] Comment on above: Performed By: #### L AB24, LAB15 ####Security Assurance Specialist: JACKI MANCILLA ([phone])[facility])[address] [place] [address] [place] GLOMERULAR FILTRATION RATE ML/MIN/1.73 SQ M.PREDICTED 84.8 mL/min/1.73m*2 Normal >60.0 [facility] Comment on above: Result Comment: Calc ulation based on the Chronic Kidney Disease Epidemiology Collaboration (CKD-EPI) equation refit without adjustment for race Performed By: #### L AB24, LAB15 ####Security Assurance Specialist: JACKI MANCILLA ([phone])[facility] ([facility])[address] [place] [address] Glucose [Mass/Vol] 97 mg/dL Normal 82-115 [facility] Comment on above: Performed By: #### L AB24, LAB15 ####Security Assurance Specialist: JACKI MANCILLA ([phone])[facility] ([facility])[address] [place] [address] Potassium [Moles/Vol] 3.8 mmol/L Normal 3.5-5.1 [facility] Comment on above: Result Comment: [facility] potassium values may be up to 0.5 mmol/L lower than serum values. Performed By: #### L AB24, LAB15 ####Security Assurance Specialist: JACKI MANCILLA ([phone])[facility] ([facility])[address] [place] [address] Sodium [Moles/Vol] 140 mmol/L Normal 136-145 [facility] Comment on above: Performed By: #### L AB24, LAB15 ####Security Assurance Specialist: JACKI MANCILLA ([phone])[facility] ([facility])[address] [place] [address] Urea nitrogen [Mass/Vol] 21 mg/dL Normal 9-23 [facility] Comment on above: Performed By: #### L AB24, LAB15 ####Security Assurance Specialist: JACKI MANCILLA ([phone])[facility] ([facility])[address] [place] [address] Basic metabolic 1998 panelon 12-04-2024 Anion gap [Moles/Vol] 6 mmol/L 3 - 13 mmol/L [facility] Calcium [Mass/Vol] 7.8 mg/dL Low 8.8 - 10. 0 mg/dL [facility] Chloride [Moles/Vol] 113 mmol/L High 98 - 10 7 mmol/L [facility] CO2 [Moles/Vol] 21 mmol/L Low 23 - 31 mmol/L [facility] Creatinine [Mass/Vol] 0.73 mg/dL 0.57 - 1.11 mg/dL [facility] GFR/1.73 sq M.predicted (S/P/Bld) [Vol rate/Area] 84.8 mL/min - PINF [facility] [employer] Comment on above: Calculation based on the Chronic Kidney Disease Epidemiology Collaboration (CKD-EPI) equation refit without adjustment for race Glucose [Mass/Vol] 97 mg/dL 82 - 115 mg/dL [facility] Interpretation and review of laboratory results Abnormal [facility] Potassium [Moles/Vol] 3.8 mmol/L 3.5 - 5.1 mmol/L [facility] Comment on above: Plasma potassium radha ues may be up to 0.5 mmol/L lower than serum values. Sodium [Moles/Vol] 140 mmol/L 136 - 145 mmol/L [facility] [employer] Urea nitrogen [Mass/Vol] 21 mg/dL 9 - 23 mg/dL [facility] [employer] CBC W Auto Differential pane l (Bld)on 12-04-2024 Basophils (Bld) [#/Vol] 0 10*3/uL 0.0 - 0.2 10*3/uL [facility] [employer] Basophils/100 WBC (Bld) 0.3 % 0.0 - 2.0 % [facility] [employer] Eosinophils (Bld) [#/Vol] 0 10*3/uL 0.0 - 0.5 10*3/uL [facility] [employer] Eosinophils/100 WBC (Bld) 0 % 0.0 - 6.0 % [facility] [employer] Erythrocyte distribution width (RBC) [Ratio] 13.4 % 11.5 - 15.0 % [facility] [employer] Hematocrit (Bld) [Volume fraction] 31.7 % Low 35.0 - 47.0 % [facility] [employer] Hemoglobin (Bld) [Mass/Vol] 10.3 g/dL Low 11.7 - 16.0 g/dL [facility] [employer] Immature granulocytes (Bld) [#/Vol] 0 10*3/uL NINF - 0.1 10*3/uL [facility] [employer] Immature granulocytes/100 WBC (Bld) 0.4 % 0.0 - 2.0 % [facility] Interpretation and review of laboratory results Abnormal [facility] Lymphocytes (Bld) [#/Vol] 1.2 10*3/uL 1.0 - 4.3 10*3/uL [facility] [employer] Lymphocytes/100 WBC (Bld) 16.4 % 15.0 - 45.0 % [facility] MCH (RBC) [Entitic mass] 28.9 pg 26. 0 - 34.0 pg [facility] MCHC (RBC) [Mass/Vol] 32.5 % 30.5 - 36.0 % [facility] MCV (RBC) [Entitic vol] 89 fL 77.0 - 99.0 fL [facility] Monocytes (Bld) [#/Vol] 0.8 10*3/uL 0.0 - 0.9 10*3/uL [facility] Monocytes/100 WBC (Bld) 10.5 % 5.0 - 13.0 % [facility] Neutrophils (Bld) [#/Vol] 5.4 10*3/uL 1.8 - 7.5 10*3/uL [facility] Neutrophils/100 WBC (Bld) 72.4 % 38.0 - 82.0 % [facility] Nucleated RBC/100 WBC (Bld) [Ratio] 0 % [facility] Platelet mean volume (Bld) [Entitic vol] 11.9 fL 9.0 - 12.7 fL [facility] Platelets (Bld) [#/Vol] 150 10*3/uL 140 - 440 10*3/uL [facility] RBC (Bld) [#/Vol] 3.56 10*6/uL Low 3.80 - 5.20 10*6/uL [facility] WBC (Bld) [#/Vol] 7.5 10*3/uL 3.6 - 10.7 10*3/uL [facility] CBC WITH AUTO DIFFERENTIALon 12-04-2024 Basophils (Bld) [#/Vol] 0.0 10*3/uL Normal 0.0-0.2 [facility] Comment on above: Performed By: #### L [id number] ####Security Assurance Specialist: JACKI MANCILLA ([phone])[facility] ([facility])[address] [place] [address] Basophils/100 WBC (Bld) 0.3 % Normal 0.0-2.0 [facility] Comment on above: Performed By: #### L [id number] ####Security Assurance Specialist: JACKI MANCILLA ([phone])[facility] ([facility])[address] [place] [address] [place] Eosinophils (Bld) [#/Vol] 0.0 10*3/uL Normal 0.0-0.5 [facility] Comment on above: Performed By: #### L [id number] ####Security Assurance Specialist: JACKI MANCILLA ([phone])[facility])[address] [place] [address] Eosinophils/100 WBC (Bld) 0.0 % Normal 0.0-6.0 [facility] Comment on above: Performed By: #### L [id number] ####Security Assurance Specialist: JACKI MANCILLA ([phone])[facility])[address] [place] [address] Erythrocyte distribution width (RBC) [Ratio] 13.4 % Normal 11.5-15.0 [facility] Comment on above: Performed By: #### L [id number] ####Security Assurance Specialist: JACKI MANCILLA ([phone])[address] Hematocrit (Bld) [Volume fraction] 31.7 % Low 35.0-47.0 [facility] Comment on above: Performed By: #### L [id number] ####Security Assurance Specialist: JACKI MANCILLA ([phone])[address] Hemoglobin (Bld) [Mass/Vol] 10.3 g/dL Low 11.7-16.0 [facility] Comment on above: Performed By: #### L [id number] ####Security Assurance Specialist: JACKI MANCILLA ([phone])[address] IMMATURE GRANS % 0.4 % Normal 0.0-2.0 [facility] Comment on above: Performed By: #### L [id number] ####Security Assurance Specialist: JACKI MANCILLA ([phone])[address] IMMATURE GRANS ABSOLUTE 0.0 10*3/uL Normal <0.1 [facility] Comment on above: Performed By: #### L [id number] ####Security Assurance Specialist: JACKI MANCILLA ([phone])[facility])[address] [place] [address] Lymphocytes (Bld) [#/Vol] 1.2 10*3/uL Normal 1.0-4.3 [facility] Comment on above: Performed By: #### L [id number] ####Security Assurance Specialist: JACKI MANCILLA ([phone])[facility])[address] [place] [address] Lymphocytes/100 WBC (Bld) 16.4 % Normal 15.0-45.0 [facility] Comment on above: Performed By: #### L [id number] ####Security Assurance Specialist: JACKI MANCILLA ([phone])[facility])[address] [place] [address] MCH (RBC) [Entitic mass] 28.9 pg Normal 26.0-34.0 [facility] Comment on above: Performed By: #### L [id number] ####Security Assurance Specialist: JACKI MANCILLA ([phone])[facility])[address] [place] [address] MCHC 32.5 % Normal 30.5-36.0 [facility] Comment on above: Performed By: #### L [id number] ####Security Assurance Specialist: JACKI MANCILLA ([phone])[facility])[address] [place] [address] MCV (RBC) [Entitic vol] 89.0 fL Normal 77.0-99.0 [facility] Comment on above: Performed By: #### L [id number] ####Security Assurance Specialist: JACKI MANCILLA ([phone])[facility])[address] [place] [address] Monocytes (Bld) [#/Vol] 0.8 10*3/uL Normal 0.0-0.9 [facility] Comment on above: Performed By: #### L [id number] ####Security Assurance Specialist: JACKI MANCILLA ([phone])[facility] ([facility])[address] [place] [address] Monocytes/100 WBC (Bld) 10.5 % Normal 5.0-13.0 [facility] Comment on above: Performed By: #### L [id number] ####Security Assurance Specialist: JACKI MANCILLA ([phone])[facility] ([facility])[address] [place] [address] NEUTROPHILS ABSOLUTE 5.4 10*3/uL Normal 1.8-7.5 [facility] Comment on above: Performed By: #### L [id number] ####Security Assurance Specialist: JACKI MANCILLA ([phone])[facility] ([facility])[address] [place] [address] Neutrophils/100 WBC (Bld) 72.4 % Normal 38.0-82.0 [facility] Comment on above: Performed By: #### L [id number] ####Security Assurance Specialist: JACKI MANCILLA ([phone])[facility] ([facility])[address] [place] [address] NRBC 0.0 /100 WBCs Normal 0.0-2.0 [facility] Comment on above: Performed By: #### L [id number] ####Security Assurance Specialist: JACKI MANCILLA ([phone])[facility] ([facility])[address] [place] [address] Platelet mean volume (Bld) [Entitic vol] 11.9 fL Normal 9.0-12.7 [facility] Comment on above: Performed By: #### L [id number] ####Security Assurance Specialist: JACKI MANCILLA ([phone])[facility] ([facility])[address] [place] [address] [place] Platelets (Bld) [#/Vol] 150 10*3/uL Normal 140-440 [facility] Comment on above: Performed By: #### L [id number] ####Security Assurance Specialist: JACKI MANCILLA ([phone])[facility] ([facility])[address] [place] [address] RBC (Bld) [#/Vol] 3.56 10*6/uL Low 3.80-5.20 [facility] Comment on above: Performed By: #### L [id number] ####Security Assurance Specialist: JACKI MANCILLA ([phone])[facility] ([facility])[address] [place] [address] WBC (Bld) [#/Vol] 7.5 10*3/uL Normal 3.6-10.7 [facility] Comment on above: Performed By: #### L [id number] ####Security Assurance Specialist: JACKI MANCILLA ([phone])[facility] ([facility])[address] [place] [address] CT HEAD WO IV CONTRASTon CT HEAD [...] EST Recurrent seizure with transient AMS Normal [facility] CT Head WO contraston 2024 No acute intracranial abnormalities or significant change from the prior study. Report Dictated on Electronically Signed By: Arpit Russo MD Electronically Signed Date/Time: 12/04/2024 2:43 PM [facility] Patient Name: KATHERYN YIP : 1945 [...] included paranasal sinuses and orbits are normal. 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 -------- General Neurology Consult Patient: Katheryn Chino Date of : 1945 Acct: [id number] PCP: Orville Mendoza DO Date of Admission: 12/03/2024 Date of Service: Pt seen/examined on 12/04/24 Chief Complaint: Breakthrough seizure History Of Present Illness: 79 y.o. female with past medical history significant for idiopathic generalized epilepsy (since childhood), cerebellar atrophy (on MRI in 2018, thought to be 2/2 chronic Dilantin use), wheelchair dependence, chronic dysarthria, hypothyroidism who presented from [facility] 12/03 with complaint of breakthrough seizure. Patient follows with Dr. Jimenez from [facility] and has been having generalized tonic-clonic seiz (more content not included)... Normal [facility] LACOSAMIDE (BKR QUEST)on [facility] LACOSAMIDE <0.5 Normal [facility] Comment on above: Result Comment: (Not e) Expected concentrations of Lacosamide in patients receiving recommended daily dosages: Up to 15.0 mcg/mL.Toxic range not established. This test was developed and its analytical performance characteristics have been determined by [employer]. It has not been cleared or approved by the FDA. This assay has been validated pursuant to the CLIA regulations and is used for clinical purposes. [employer] [address] [place] [address],[address] [place] [address] Jeff Gutiérrez MD, PhD Test performed by [employer] [address] [place] [address] [address] [place] [address] Security Assurance Specialist: Jeff Gutiérrez MD, PhD Test Reported by [facility], [facility], [address] [place] [address] Jorge L Guerrero M.D., Ph.D., Director of Laboratories , CLIA [id number] Performed By: #### L [id number] #### [employer]) [id number] [place], [place] [facility] Laboratory - Drug toxicology on 12-04-2024 Valproate [Mass/Vol] 18 ug/mL Low 50 - 12 5 ug/mL [facility] No Panel Informationon 12-04 Interpretation and review of laboratory results Abnormal [facility] Toxicity is seen at concentrations >175 ug/mL [facility] Nursing Noteon 12-04-2024 Nursing Note Wound Care consulted for Pressure Injury Prevention. Pt's Melo score= 16 on 12/04 Pt's pressure points assessed. Pt sitting in chair. OT present in room and assisted pt with standing for assessment of buttocks/coccyx. Pt's Heels, Buttocks/coccyx, Back, Elbows, Occiput and ears all intact. Prevention Measures in place, including: Ocilla sheet with pillows, Foam heel protectors (obtained [...] concerns. Aliza Goins, RN, BSN, CWCN Normal [facility] Progress Noteon 12-04-2024 Progress Note Patient seen and examined at bedside. Refer to Dr. Garza H&P for further details. See new orders. Receiving abx for likely UTI. From facility. Neurology consulted for breakthrough seizure. Denise Hair D.O. Division of Hospitalist Medicine Acute care [facility] Normal [facility] Respiratory pathogens DNA an d RNA panel RUTH+non-probe (Nph)on 12-04-2024 Adenovirus Not detected Not Detected [facility] B. pertussis DNA RUTH+probe Ql (Unsp spec) Not detected Not Detected [facility] Bordetella parapertussis Not detected Not Detected [facility] Chlamydia pneumoniae Not detected Not Detected [facility] Coronavirus 229E Not detected Not Detected [facility] Coronavirus HKU1 Not detected Not Detected [facility] Coronavirus NL63 Not detected Not Detected [facility] Coronavirus OC43 Not detected Not Detected [facility] FLUAV RNA RUTH+non-probe Ql (Nph) Not detected Not Detected [facility] FLUBV RNA RUTH+non-probe Ql (Nph) Not detected Not Detected [facility] Human Metapneumovirus Not detected Not Detected [facility] Human Rhinovirus/Enterovirus Not detected Not Detected [facility] Interpretation and review of laboratory results Normal [facility] Mycoplasma pneumoniae Not detected Not Detected [facility] Parainfluenza 1 Not detected Not Detected [facility] Parainfluenza 2 Not detected Not Detected [facility] Parainfluenza 3 Not detected Not Detected [facility] Parainfluenza 4 Not detected Not Detected [facility] Respiratory Syncytial Virus Not detected Not Detected [facility] SARS-CoV-2 (COVID-19) RNA RUTH+non-probe Ql (Nph) Not detected Not Detected [facility] Methodology: Multipl ex PCR [facility] VALPROIC ACID TOTALon 2024 VALPROIC ACID 18 ug/mL Low 50-125 [facility] Comment on above: Result Comment: RD R COMMENTS: Toxicity is seen at concentrations >175 ug/mL Performed By: #### L AB24, [id number] ####Security Assurance Specialist: JACKI MANCILLA ([phone])[address] VALPROIC ACID TOTAL AND FREE (BKR QUEST)on 12-04-2024 QUEST VALPROIC ACID 20.4 mg/L Low 50.0-100.0 [facility] Comment on above: Result Comment: Test Performed by Reji Álvarez, [facility], [address] [place], [place] Jorge L Guerrero M.D., Ph.D., Director of Laboratories , [place] [id number] Performed By: #### L AB172 ####[facility] (AMDBEAKER)[address] [place] [facility] QUEST VALPROIC ACID, FREE <4.0 Low 4.8-17.3 [facility] Comment on above: Result Comment: Note: Non-linear drug binding properties result in the fraction of Free Valproic Acid increasing as total drug increases. The free fraction may range from 5% to 25% for the total drug range of 30-160 mg/L. Performed By: #### L AB172 ####[employer] (AMDBEAKER)[address] [place] [facility] Absolute lymphocyte countOrd ered By: Damir Ledesmao on 12-03-2024 Lymphocytes Auto (Unsp spec) [#/Vol] 0.66 10*3/uL Low 0.83-4.51 [facility] Absolute neutrophil countOrd ered By: Damir Ledesmao on 12-03-2024 Neutrophils (Bld) [#/Vol] 12.4 10*3/uL High 2.0-7.7 [facility] Automated lymphocyte count a s percentage of total leukocytesOrdered By: Damir Mckee on 12-03-2024 Lymphocytes/100 WBC Auto (Unsp spec) 4.8 % Low 19-41 [facility] BLOOD CULTUREon 12-03-2024 Bacteria identified Cx Nom (Bld) BLOOD CULTURE Reference No growth at 5 days ORDER COMMENTS: Blood Collection Site: Left Forearm [ S = SUSCEPTIBLE R = RESISTANT I = INTERMEDIATE S-DD = Susceptible-dose dependent NS = Non-susceptible NO = No Interpretation ] Normal [facility] Comment on above: Performed By: #### L AB239, [id number] #### Security Assurance Specialist: JACKI MANCILLA ([phone]) [address] Bacteria identified Cx Nom (Bld) BLOOD CULTURE Reference No growth at 5 days ORDER COMMENTS: Blood Collection Site: Left Hand [ S = SUSCEPTIBLE R = RESISTANT I = INTERMEDIATE S-DD = Susceptible-dose dependent NS = Non-susceptible NO = No Interpretation ] Normal [facility] Comment on above: Performed By: #### L [id number] ####Security Assurance Specialist: JACKI MANCILLA ([phone])[facility])[address] [place] [address] Basic Metabolic Profile (BMP )on 12-03-2024 BUN/CRE 29.9 RATIO High 10-20 [facility] Comment on above: Performed By: #### L 100.0100 #### [facility] [address] [place], [address] CA,Total 7.4 mg/dL Low 8.5-10.1 [facility] Comment on above: Performed By: #### L 100.0100 #### [facility] [address] [place], [address] Chloride [Moles/Vol] 114 mmol/L High 98-107 [facility] Comment on above: Performed By: #### L 100.0100 #### [facility] [address] [place], [address] CO2 [Moles/Vol] 21.0 mmol/L Normal 21.0-32.0 [facility] Comment on above: Performed By: #### L 100.0100 #### [facility] [address] [place], [address] Creatinine [Mass/Vol] 0.64 mg/dL Normal 0.55-1.02 [facility] Comment on above: Result Comment: The validity of the calculated GFR GFRAA in patients over 70 years has not been determined. Clinical correlation is essential. Performed By: #### L 100.0100 #### [facility] [address] [place], [address] ECRCL 63.94 ml/min Normal [facility] Comment on above: Performed By: #### L 100.0100 #### [facility] [address] [place], [address] EST GFR - AA 116 mL/min Normal >60 [facility] Comment on above: Result Comment: Afri can Turkmen GFR Calc Performed By: #### L 100.0100 #### [facility] [address] [place], [address] GAP 8 Normal 5-15 [facility] Comment on above: Performed By: #### L 100.0100 #### [facility] [address] [place], [address] GFR/1.73 sq M.predicted among non-blacks MDRD (S/P/Bld) [Vol rate/Area] 96 mL/min/{1.73_m2} Normal >60 [facility] Comment on above: Result Comment: Non- GFR Calc Performed By: #### L 100.0100 #### [facility] [address] [place], [address] Glucose [Mass/Vol] 141 mg/dL High 74-106 [facility] Comment on above: Result Comment: Fast ing Glucose result greater than or equal to 126 mg/dL suggests DIABETES MELLITUS per A.D.A. criteria. Performed By: #### L 100.0100 #### [facility] [address] [place], [address] Potassium [Moles/Vol] 3.3 mmol/L Low 3.5-5.1 [facility] Comment on above: Performed By: #### L 100.0100 #### [facility] [address] [place], [address] Sodium [Moles/Vol] 143 mmol/L Normal 136-145 [facility] Comment on above: Performed By: #### L 100.0100 #### [facility] [address] [place], [address] Urea nitrogen [Mass/Vol] 19 mg/dL High 7-18 [facility] Comment on above: Performed By: #### L 100.0100 #### [facility] [address] [place] [place], [address] Basophil percentageOrdered B y: Damir Mckee on 12-03-2024 Basophils/100 WBC (Bld) 0.3 % 0-1 [facility] Blood urea nitrogen (BUN)/cr eatinine ratioOrdered By: Damir Mckee on 12-03-2024 Urea nitrogen/Creatinine [Mass ratio] 29.9 mg/mg High 10-20 [facility] CBC W Auto Differential pane l (Bld)Ordered By: Charley Traore on 12-03-2024 Basophils (Bld) [#/Vol] 0 10*3/uL 0.0 - 0.2 10*3/uL [facility] Basophils/100 WBC (Bld) 0.1 % 0.0 - 2.0 % [facility] Eosinophils (Bld) [#/Vol] 0 10*3/uL 0.0 - 0.5 10*3/uL [facility] Eosinophils/100 WBC (Bld) 0 % 0.0 - 6.0 % [facility] Erythrocyte distribution width (RBC) [Ratio] 13.2 % 11.5 - 15.0 % [facility] Hematocrit (Bld) [Volume fraction] 36.9 % 35.0 - 47.0 % [facility] Hemoglobin (Bld) [Mass/Vol] 11.6 g/dL Low 11.7 - 16.0 g/dL [facility] [employer] [employer] Immature granulocytes (Bld) [#/Vol] 0.1 10*3/uL High NINF - 0.1 10*3/uL [facility] Immature granulocytes/100 WBC (Bld) 0.5 % 0.0 - 2.0 % [facility] [employer] Interpretation and review of laboratory results Abnormal [facility] Lymphocytes (Bld) [#/Vol] 0.6 10*3/uL Low 1.0 - 4.3 10*3/uL [facility] Lymphocytes/100 WBC (Bld) 5.8 % Low 15.0 - 45.0 % [facility] MCH (RBC) [Entitic mass] 28.2 pg 26. 0 - 34.0 pg [facility] MCHC (RBC) [Mass/Vol] 31.4 % 30.5 - 36.0 % [facility] MCV (RBC) [Entitic vol] 89.6 fL 77.0 - 99.0 fL [facility] Monocytes (Bld) [#/Vol] 0.6 10*3/uL 0.0 - 0.9 10*3/uL [facility] Monocytes/100 WBC (Bld) 5.9 % 5.0 - 13.0 % [facility] Neutrophils (Bld) [#/Vol] 9.6 10*3/uL High 1.8 - 7.5 10*3/uL [facility] [employer] Neutrophils/100 WBC (Bld) 87.7 % High 38.0 - 82.0 % [facility] [employer] Nucleated RBC/100 WBC (Bld) [Ratio] 0 % [facility] [employer] Platelet mean volume (Bld) [Entitic vol] 11.7 fL 9.0 - 12.7 fL [facility] [employer] Platelets (Bld) [#/Vol] 202 10*3/uL 140 - 440 10*3/uL [facility] [employer] RBC (Bld) [#/Vol] 4.12 10*6/uL 3.80 - 5.20 10*6/uL [facility] WBC (Bld) [#/Vol] 10.9 10*3/uL High 3.6 - 10.7 10*3/uL [facility] CBC W/Diff, Automatedon 11-15 Absolute Lymph 0.66 X10 3/uL Low 0.83-4.51 [facility] Comment on above: Performed By: #### L 100.0100 #### [facility] [address] [place], [address] Absolute Neut 12.4 X10 3/uL High 2.0-7.7 [facility] Comment on above: Performed By: #### L 100.0100 #### [facility] [address] [place], [address] Basophils/100 WBC (Bld) 0.3 % Normal 0-1 [facility] Comment on above: Performed By: #### L 100.0100 #### [facility] [address] [place], [address] Eosinophils/100 WBC (Bld) 0.0 % Normal 0-5 [facility] Comment on above: Performed By: #### L 100.0100 #### [facility] [address] [place], [address] Erythrocyte distribution width (RBC) [Ratio] 13.2 % Normal 11.6-14.6 [facility] Comment on above: Performed By: #### L 100.0100 #### [facility] [address] [place], [address] Hematocrit (Bld) [Volume fraction] 36.5 % Low 37-47 [facility] Comment on above: Performed By: #### L 100.0100 #### [facility] [address] [place], [address] Hemoglobin (Bld) [Mass/Vol] 11.9 g/dL Low 12.0-15.0 [facility] Comment on above: Performed By: #### L 100.0100 #### [facility] [address] [place], [address] IG% 0.400 Normal 0.0-0.9 [facility] Comment on above: Result Comment: IG% - Immature Granulocytes (promyelocytes, myelocytes and metamyelocytes) > 1% indicates that a LEFT SHIFT is Present. Performed By: #### L 100.0100 #### [facility] [address] [place], [address] Lymphocytes/100 WBC (Bld) 4.8 % Low 19-41 [facility] Comment on above: Performed By: #### L 100.0100 #### [facility] [address] [place], [address] MCH (RBC) [Entitic mass] 29.1 pg Normal 27.0-32.0 [facility] Comment on above: Performed By: #### L 100.0100 #### [facility] [address] [place], [address] MCHC (RBC) [Mass/Vol] 32.6 g/dL Normal 32-36 [facility] Comment on above: Performed By: #### L 100.0100 #### [facility] [address] [place], [address] MCV (RBC) [Entitic vol] 89.2 fL Normal 81-99 [facility] Comment on above: Performed By: #### L 100.0100 #### [facility] [address] [place], [address] Monocytes/100 WBC (Bld) 4.8 % Normal 0-10 [facility] Comment on above: Performed By: #### L 100.0100 #### [facility] [address] [place], [address] Neutrophils/100 WBC (Bld) 89.7 % High 47-70 [facility] Comment on above: Performed By: #### L 100.0100 #### [facility] [address] [place], [address] Nucleated RBC (Bld) [#/Vol] 0 10*3/uL Normal 0-5 [facility] Comment on above: Performed By: #### L 100.0100 #### [facility] [address] [place], [address] Platelet mean volume (Bld) [Entitic vol] 11.9 fL Normal 6.2-12.0 [facility] Comment on above: Performed By: #### L 100.0100 #### [facility] [address] [place], [address] Platelets (Bld) [#/Vol] 199 10*3/uL Normal 150-450 [facility] Comment on above: Performed By: #### L 100.0100 #### [facility] [address] [place], [address] RBC (Bld) [#/Vol] 4.09 10*6/uL Low 4.2-5.4 [facility] Comment on above: Performed By: #### L 100.0100 #### [facility] [address] [place], [address] RDW SD 43.0 fl Normal 35.1-43.9 [facility] Comment on above: Performed By: #### L 100.0100 #### [facility] [address] [place], [address] WBC (Bld) [#/Vol] 13.8 10*3/uL High 4.4-11.0 [facility] Comment on above: Performed By: #### L 100.0100 #### [facility] [address] [place], [address] CBC WITH AUTO DIFFERENTIALon 12-03-2024 Basophils (Bld) [#/Vol] 0.0 10*3/uL Normal 0.0-0.2 [facility] Comment on above: Performed By: #### L [id number] ####Security Assurance Specialist: JACKI MANCILLA ([phone])[facility])[address] [place] [address] Basophils/100 WBC (Bld) 0.1 % Normal 0.0-2.0 [facility] Comment on above: Performed By: #### L [id number] ####Security Assurance Specialist: JACKI MANCILLA ([phone])[facility])[address] [place] [address] Eosinophils (Bld) [#/Vol] 0.0 10*3/uL Normal 0.0-0.5 [facility] Comment on above: Performed By: #### L [id number] ####Security Assurance Specialist: JACKI MANCILLA ([phone])[facility])[address] [place] [address] [place] Eosinophils/100 WBC (Bld) 0.0 % Normal 0.0-6.0 [facility] Comment on above: Performed By: #### L [id number] ####Security Assurance Specialist: JACKI MANCILLA ([phone])[facility])[address] [place] [address] [place] Erythrocyte distribution width (RBC) [Ratio] 13.2 % Normal 11.5-15.0 [facility] Comment on above: Performed By: #### L [id number] ####Security Assurance Specialist: JACKI MANCILLA ([phone])[address] Hematocrit (Bld) [Volume fraction] 36.9 % Normal 35.0-47.0 [facility] Comment on above: Performed By: #### L [id number] ####Security Assurance Specialist: JACKI MANCILLA ([phone])[facility])[address] [place] [address] Hemoglobin (Bld) [Mass/Vol] 11.6 g/dL Low 11.7-16.0 [facility] Comment on above: Performed By: #### L [id number] ####Security Assurance Specialist: JACKI MANCILLA ([phone])[address] IMMATURE GRANS % 0.5 % Normal 0.0-2.0 [facility] Comment on above: Performed By: #### L [id number] ####Security Assurance Specialist: JACKI MANCILLA ([phone])[address] IMMATURE GRANS ABSOLUTE 0.1 10*3/uL High <0.1 [facility] Comment on above: Performed By: #### L [id number] ####Security Assurance Specialist: JACKI MANCILLA ([phone])[facility])[address] [place] [address] Lymphocytes (Bld) [#/Vol] 0.6 10*3/uL Low 1.0-4.3 [facility] Comment on above: Performed By: #### L [id number] ####Security Assurance Specialist: JACKI MANCILLA ([phone])[address] Lymphocytes/100 WBC (Bld) 5.8 % Low 15.0-45.0 [facility] Comment on above: Performed By: #### L [id number] ####Security Assurance Specialist: JACKI [phone])[facility])[address] [place] [address] MCH (RBC) [Entitic mass] 28.2 pg Normal 26.0-34.0 [facility] Comment on above: Performed By: #### L [id number] ####Security Assurance Specialist: JACKI MANCILLA ([phone])[facility])[address] [place] [address] MCHC 31.4 % Normal 30.5-36.0 [facility] Comment on above: Performed By: #### L [id number] ####Security Assurance Specialist: JACKI MANCILLA ([phone])[facility])[address] [place] [address] MCV (RBC) [Entitic vol] 89.6 fL Normal 77.0-99.0 [facility] Comment on above: Performed By: #### L [id number] ####Security Assurance Specialist: JACKI MANCILLA ([phone])[facility] ([facility])[address] [place] [address] Monocytes (Bld) [#/Vol] 0.6 10*3/uL Normal 0.0-0.9 [facility] Comment on above: Performed By: #### L [id number] ####Security Assurance Specialist: JACKI MANCILLA ([phone])[facility])[address] [place] [address] Monocytes/100 WBC (Bld) 5.9 % Normal 5.0-13.0 [facility] Comment on above: Performed By: #### L [id number] ####Security Assurance Specialist: JACKI MANCILLA ([phone])[facility])[address] [place] [address] NEUTROPHILS ABSOLUTE 9.6 10*3/uL High 1.8-7.5 [facility] Comment on above: Performed By: #### L [id number] ####Security Assurance Specialist: JACKI MANCILLA ([phone])[facility])[address] [place] [address] Neutrophils/100 WBC (Bld) 87.7 % High 38.0-82.0 [facility] Comment on above: Performed By: #### L [id number] ####Security Assurance Specialist: JACKI MANCILLA ([phone])[facility])[address] [place] [address] NRBC 0.0 /100 WBCs Normal 0.0-2.0 [facility] Comment on above: Performed By: #### L [id number] ####Security Assurance Specialist: JACKI MANCILLA ([phone])[facility])[address] [place] [address] Platelet mean volume (Bld) [Entitic vol] 11.7 fL Normal 9.0-12.7 [facility] Comment on above: Performed By: #### L [id number] ####Security Assurance Specialist: JACKI MANCILLA ([phone])[facility])[address] [place] [address] Platelets (Bld) [#/Vol] 202 10*3/uL Normal 140-440 [facility] Comment on above: Performed By: #### L [id number] ####Security Assurance Specialist: JACKI MANCILLA ([phone])[facility])[address] [place] [address] RBC (Bld) [#/Vol] 4.12 10*6/uL Normal 3.80-5.20 [facility] Comment on above: Performed By: #### L [id number] ####Security Assurance Specialist: JACKI MANCILLA ([phone])[facility])[address] [place] [address] WBC (Bld) [#/Vol] 10.9 10*3/uL High 3.6-10.7 [facility] Comment on above: Performed By: #### L [id number] ####Security Assurance Specialist: JACKI MANCILLA ([phone])[facility])[address] [place] [address] Kuldip 12-03-2024 LIBORIO Telephone (MARLYNJazmyn) -------- KATHERYN CHINO ([id number]) 1945 F Date Time Provider Department 12/03/24 JAYANT JIMENEZ During your visit today, we recorded the following information about you: Franchesca Arana 12/03/2024 2:43 PM Signed Received patients seizure monitoring sheet from [facility]. Uploaded to [facility] Silvia Rogers RN 12/09/2024 2:45 PM Addendum Seizure Call - spoke with nurse Inman. [facility] PH: [phone] FAX : [phone] Last Visit: 09/24/24 Next Visit: 01/15/25 Date [...] Other: patient was taken to local ED, [facility]. The patient will be transferred to [...] PM Signed Spoke with nurse Inman at [facility]. Informed her of recommendations to increase LCM to 150mg BID, with read back. Nurse requests rx to be faxed to the facility. [facility] PH: [phone] FAX : [phone] MEGA Christianson Kelly, APRN.[employer]PERATOR 12/04/2024 6:15 PM Signed The following approved medication requests have been transmitted electronically. Requested Prescriptions Signed Prescriptions Disp Refills lacosamide (VIMPAT) 150 mg tab 180 tablet 1 Sig: Take 1 tablet by mouth two times a day for 180 days. Authorizing Provider: ARTIS HAMILTON APRN.Silvia Willis RN 12/05/2024 8:58 AM Signed Updated LCM 150mg BID rx faxed via [facility] to [facility]. Confirmation received. MEGA Christianson Nancy 12/08/2024 1:33 PM Signed [facility] LCM clarification and seizure activity; she can be reached at [phone] - ask lenin Zaidi'jazmyn nurse Silvia Rogers RN 12/09/2024 2:47 PM [...] MARIO 2 for recommendations. MEGA Christianson Kelly, APRN.DWAYNE 12/09/2024 3:04 PM Signed She can continue [...] Christianson Kelly, (more content not included)... Normal [facility] COMPLETE URINALYSISon 2024 BACTERIA (#/HPF) IN URINE Loaded Abnormal Negative [facility] [employer] [facility] Comment on above: Performed By: #### L AB239, [id number] #### Security Assurance Specialist: JACKI MANCILLA ([phone]) [facility] ([facility]) [address] [place] [address] BILIRUBIN, TOTAL PRESENCE IN URINE Negative Normal Negative [facility] Comment on above: Performed By: #### L AB239, [id number] #### Security Assurance Specialist: JACKI MANCILLA ([phone]) [facility] ([facility]) [address] [place] [address] Clarity (U) Extra Turbid Abnormal Clear [facility] Comment on above: Performed By: #### L AB239, [id number] #### Security Assurance Specialist: JACKI MANCILLA ([phone]) [facility]) [address] [place] [address] Color (U) Yellow Normal Lt. Yellow [facility] Comment on above: Performed By: #### L AB239, [id number] #### Security Assurance Specialist: JACKI MANCILLA ([phone]) [facility] ([facility]) [address] [place] [address] GLUCOSE (MG/DL) IN URINE Normal Normal Nor mal (<70) [facility] Comment on above: Performed By: #### L AB239, [id number] #### Security Assurance Specialist: JACKI MANCILLA ([phone]) [facility]) [address] [place] [address] HEMOGLOBIN PRESENCE IN URINE 0.06 mg/dL Abnormal Negative [facility] Comment on above: Performed By: #### L AB239, [id number] #### Security Assurance Specialist: JACKI MANCILLA ([phone]) [facility]) [address] [place] [address] HYALINE CASTS (#/LPF) IN URINE SEDIMENT BY MICROSCOPY Negative Normal Negative [facility] Comment on above: Performed By: #### L AB239, [id number] #### Security Assurance Specialist: JACKI MANCILLA ([phone]) [facility] ([facility]) [address] [place] [address] Ketones Ql (U) Trace Abnormal Negative [facility] Comment on above: Performed By: #### L AB239, [id number] #### Security Assurance Specialist: JACKI MANCILLA ([phone]) [facility]) [address] [place] [address] LEUKOCYTE ESTERASE PRESENCE IN URINE BY TEST STRIP 500 James/uL Abnormal Negative [facility] Comment on above: Performed By: #### L AB239, [id number] #### Security Assurance Specialist: JACKI MANCILLA ([phone]) [facility] ([facility]) [address] [place] [address] [place] MUCUS (#/LPF) IN URINE SEDIMENT Few Normal Negative [facility] Comment on above: Performed By: #### L AB239, [id number] #### Security Assurance Specialist: JACKI MANCILLA ([phone]) [facility] ([facility]) [address] [place] [address] NITRITE PRESENCE IN URINE Negative Normal Negative [facility] Comment on above: Performed By: #### L AB239, [id number] #### Security Assurance Specialist: JACKI MANCILLA ([phone]) [facility] ([facility]) [address] [place] [address] [place] NON-SQUAMOUS EPITHELIAL (#/HPF) IN URINE 3-5 Abnormal Negative [facility] Comment on above: Performed By: #### L AB239, [id number] #### Security Assurance Specialist: JACKI MANCILLA ([phone]) [facility] ([facility]) [address] [place] [address] pH (U) 6.0 [pH] Normal 5.0-8.0 [facility] Comment on above: Performed By: #### Ailyn AB239, [id number] #### Security Assurance Specialist: JACKI MANCILLA ([phone]) [facility] ([facility]) [address] [place] [address] Protein (U) [Mass/Vol] 100 mg/dL Abnormal Negative [facility] Comment on above: Performed By: #### L AB239, [id number] #### Security Assurance Specialist: JACKI MANCILLA ([phone]) [facility] ([facility]) [address] [place] [address] [place] RBC (#/HPF) IN URINE SEDIMENT 11-25 Abnormal 0-2 [facility] Comment on above: Performed By: #### L AB239, [id number] #### Security Assurance Specialist: JACKI MANCILLA ([phone]) [facility]) [address] [place] [address] [place] Specific gravity (U) [Rel density] >1.030 High 1.005-1.03 0 [facility] Comment on above: Performed By: #### L AB239, [id number] #### Security Assurance Specialist: JACKI MANCILLA ([phone]) [facility] ([facility] [address] [place] [address] SQUAMOUS EPITHELIAL CELLS (#/HPF) IN URINE SEDIMENT 11-25 Abnormal 3-5 [facility] Comment on above: Performed By: #### L [id number], [id number] #### Security Assurance Specialist: JACKI MANCILLA ([phone]) [facility] ([facility]) [address] [place] [address] UROBILINOGEN (MG/DL) IN URINE Normal Normal Normal (0-1) [facility] Comment on above: Performed By: #### L [id number], [id number] #### Security Assurance Specialist: JACKI MANCILLA ([phone]) [facility] ([facility]) [address] [place] [address] WBC (LEUKOCYTE) (#/HPF) IN URINE SEDIMENT >100 Abnormal 0-5 [facility] Comment on above: Performed By: #### L [id number], [id number] #### Security Assurance Specialist: JACKI MANCILLA ([phone]) [facility] ([facility]) [address] [place] [address] WBC (LEUKOCYTE) CLUMPS (#/HPF) IN URINE SEDIMENT Many Abnormal Negative [facility] Comment on above: Performed By: #### L [id number], [id number] #### Security Assurance Specialist: JACKI MANCILLA ([phone]) [facility] ([facility]) [address] [place] [address] COMPREHENSIVE METABOLIC PANE Scottie 12-03-2024 Albumin [Mass/Vol] 3.5 g/dL Normal 3.4-4.8 [facility] Comment on above: Performed By: #### L [id number] ####Security Assurance Specialist: JACKI MANCILLA ([phone])[facility] ([facility])[address] [place] [address] ALP [Catalytic activity/Vol] 90 U/L Normal 40-150 [facility] Comment on above: Performed By: #### L [id number] ####Security Assurance Specialist: JACKI MANCILLA ([phone])[facility] ([facility])[address] [place] [address] ALT [Catalytic activity/Vol] 14 U/L Normal <30 [facility] Comment on above: Performed By: #### L [id number] ####Security Assurance Specialist: JACKI MANCILLA ([phone])[facility] ([facility])[address] [place] [address] Anion gap [Moles/Vol] 10 mmol/L Normal 3-13 [facility] Comment on above: Performed By: #### L [id number] ####Security Assurance Specialist: JACKI MANCILLA ([phone])[facility] ([facility])[address] [place] [address] AST [Catalytic activity/Vol] 31 U/L Normal <34 [facility] Comment on above: Performed By: #### L [id number] ####Security Assurance Specialist: JACKI MANCILLA ([phone])[facility] ([facility])[address] [place] [address] Bilirubin [Mass/Vol] 0.5 mg/dL Normal <1.2 [facility] Comment on above: Performed By: #### L [id number] ####Security Assurance Specialist: JACKI MANCILLA ([phone])[facility] ([facility])[address] [place] [address] Calcium [Mass/Vol] 8.5 mg/dL Low 8.8-10.0 [facility] Comment on above: Performed By: #### L [id number] ####Security Assurance Specialist: JACKI MANCILLA ([phone])[facility] ([facility])[address] [place] [address] Chloride [Moles/Vol] 109 mmol/L High 98-107 [facility] Comment on above: Performed By: #### L [id number] ####Security Assurance Specialist: JACKI MANCILLA ([phone])[facility])[address] [place] [address] CO2 [Moles/Vol] 22 mmol/L Low 23-31 [facility] Comment on above: Performed By: #### L [id number] ####Security Assurance Specialist: JACKI MANCILLA ([phone])[facility])[address] [place] [address] Creatinine [Mass/Vol] 0.82 mg/dL Normal 0.57-1.11 [facility] Comment on above: Performed By: #### L [id number] ####Security Assurance Specialist: JACKI MANCILLA ([phone])[facility])[address] [place] [address] [place] GLOMERULAR FILTRATION RATE ML/MIN/1.73 SQ M.PREDICTED 73.8 mL/min/1.73m*2 Normal >60.0 [facility] Comment on above: Result Comment: Calc ulation based on the Chronic Kidney Disease Epidemiology Collaboration (CKD-EPI) equation refit without adjustment for race Performed By: #### L [id number] ####Security Assurance Specialist: JACKI MANCILLA ([phone])[facility])[address] [place] [address] Glucose [Mass/Vol] 112 mg/dL Normal 82-115 [facility] Comment on above: Performed By: #### L [id number] ####Security Assurance Specialist: JACKI MANCILLA ([phone])[facility])[address] [place] [address] Potassium [Moles/Vol] 4.1 mmol/L Normal 3.5-5.1 [facility] Comment on above: Result Comment: [facility] potassium values may be up to 0.5 mmol/L lower than serum values. Performed By: #### L [id number] ####Security Assurance Specialist: JACKI MANCILLA ([phone])[facility] ([facility])[address] [place] [address] Protein [Mass/Vol] 7.1 g/dL Normal 6.4-8.3 [facility] Comment on above: Performed By: #### L [id number] ####Security Assurance Specialist: JACKI MANCILLA ([phone])[facility])[address] [place] [address] Sodium [Moles/Vol] 141 mmol/L Normal 136-145 [facility] Comment on above: Performed By: #### L [id number] ####Security Assurance Specialist: JACKI MANCILLA ([phone])[facility] ([facility])[address] [place] [address] Urea nitrogen [Mass/Vol] 23 mg/dL Normal 9 [facility] Comment on above: Performed By: #### L [id number] ####Security Assurance Specialist: JACKI MANCILLA ([phone])[facility] ([facility])[address] [place] [address] CT ABDOMEN PELVIS W CONTRAST on 12-03-2024 [...] EST Abdominal pain, acute, nonlocalized, Nausea/vomiting Normal [facility] CT Abdomen and Pelvis W cont rast Srikanth 12-03-2024 1. Possible cystitis, correlate with urinalysis. 2. Gallstones. Report Dictated on Electronically Signed By: Wilber Christianson MD Electronically Signed Date/Time: 12/03/2024 9:33 PM EST [facility] Patient Name: KATHERYN YIP : 1945 [...] inflamed, correlate for possible cystitis. Normal appendix. [facility] Wilber Christianson MD - 12/03/2024 Patient Name: [...] Electronically Signed Date/Time: 12/03/2024 9:33 PM EST [facility] Radiology Study observation (narrative) [facility] [employer] CT Abdomen and Pelvis W cont rast IVOrdered By: Wilber Christianson on 12-03-2024 [facility] [employer] Work Phone: Carbon dioxide measurementOr dered By: Damir Mckee on 12-03-2024 CO2 [Moles/Vol] 21.0 mmol/L 21.0-32.0 [facility] Chest 1 View (Portable)on Chest 1 View (Portable) [facility] Imaging Services [address] [place] [id number] Chest 1 View (Portable) MR#: [id number] Acct: [id number] Name: KATHERYN CHINO Rep #: [id number] : 1945 F 79 From: Darwin grigsby MD PCP: Dr. Todd Velasquez Sr., DO Status: REG ER Study: Chest 1 View (Portable) Date of Exam: 12/03/24 Exam# [id number] Ordering Dr: Damir Mckee MD PROCEDURE: CHEST [...] Elevation of the right hemidiaphragm. Reading Location: [place] [address] CC: Dr. Todd Velasquez Sr., DO; Dr. Damir Mckee MD Application Packaging Specialist: Signed Normal [facility] Chloride measurementOrdered By: Damir Mckee on 12-03-2024 Chloride [Moles/Vol] 114 mmol/L High 98-107 [facility] Comprehensive metabolic 1998 panelon 12-03-2024 Albumin [Mass/Vol] 3.5 g/dL 3.4 - 4.8 g/dL [facility] ALP [Catalytic activity/Vol] 90 U/L 40 - 150 U/L [facility] ALT [Catalytic activity/Vol] 14 U/L NINF - 30 U/L [facility] Anion gap [Moles/Vol] 10 mmol/L 3 - 13 mmol/L [facility] AST [Catalytic activity/Vol] 31 [facility] Bilirubin [Mass/Vol] 0.5 mg/dL NINF - 1.2 mg/dL [facility] Calcium [Mass/Vol] 8.5 mg/dL Low 8.8 - 10. 0 mg/dL [facility] Chloride [Moles/Vol] 109 mmol/L High 98 - 10 7 mmol/L [facility] CO2 [Moles/Vol] 22 mmol/L Low 23 - 31 mmol/L [facility] Creatinine [Mass/Vol] 0.82 mg/dL 0.57 - 1.11 mg/dL [facility] GFR/1.73 sq M.predicted (S/P/Bld) [Vol rate/Area] 73.8 mL/min - PINF [facility] Comment on above: Calculation based on the Chronic Kidney Disease Epidemiology Collaboration (CKD-EPI) equation refit without adjustment for race Glucose [Mass/Vol] 112 mg/dL 82 - 115 mg/dL [facility] Interpretation and review of laboratory results Abnormal [facility] Potassium [Moles/Vol] 4.1 mmol/L 3.5 - 5.1 mmol/L [facility] Comment on above: Plasma potassium radha ues may be up to 0.5 mmol/L lower than serum values. Protein [Mass/Vol] 7.1 g/dL 6.4 - 8.3 g/dL [facility] Sodium [Moles/Vol] 141 mmol/L 136 - 145 mmol/L [facility] Urea nitrogen [Mass/Vol] 23 mg/dL 9 - 23 mg/dL [facility] ECG 12-LEADon 12-03-2024 ECG 12-LEAD IMPRESSION: Sinus rhythm Borderline T abnormalities, anterior leads Electronically Signed On 12-03-2024 22:55:54 EST by Roxanna [facility] Provider Noteon ED Provider Note Emergency Department Encounter [facility] EMERGENCY DEPT Patient: Katheryn Chino : 1945 [...] the emergency department as a transfer from [place] for breakthrough seizure. Patient reports she has [...] Miriam Hennessy, DO [employer] Miriam Hennessy, DO 12/04/[address] [facility] ED Provider Note EMERGENCY DEPARTMENT ENCOUNTER Pt Name: Katheryn Chino Birthdate 1945 Date of evaluation: 12/03/2024 ED Provider: Rancho Diamond PA-C CHIEF COMPLAINT Chief Complaint Patient presents with Seizures [place] transfer. Pt from [facility] SNF for 38 minute witnessed seizure [...] the seizure. They did take her to [facility] where she was supposedly observed there [...] Insecurity: No Food Insecurity (08/18/2024) Received from [facility] Hunger Vital Sign Worried About Running Out of Food in the Last Year: Never true Ran Out of Food in the Last Year: Never true Transportation Needs: No Transportation Needs (08/18/2024) Received from [facility] PRAPARE - Transportation Lack of Transportation (Medical): No Lack of Transportation (Non-Medical): No Housing Stability: Low Risk (08/18/2024) Received from [facility] Housing Stability Vital Sign Unable to Pay for Housing in the Last Year: No Number of Times Moved in the Last Year: 0 Homeless in the Last Year: No SCREENINGS Tiny Coma Scale Best Eye Response: Spontaneous Best Verbal Response: Confused Best Motor Response: Follows commands Brandon Coma Scale Score: 14 PHYSICAL EXAM ED [...] and oriented (more content not included)... Normal [facility] Emergency Department Summary on 12-03-2024 Emergency Department Summary [facility] Medical Records Department [address] [place] [address] Emergency Department Summary 12/03/24 MR#: [id number] Acct: [id number] Name: KATHERYN CHION Rep #: [id number] : 1945 79 From: Damir Mckee MD [...] Prior similar symptoms: Yes Recent Illness/Hospitalization: No PFSH PFS Medical History Dysphagia, oropharyngeal phase Generalized anxiety [...] Unobtainable: du (more content not included)... Normal [facility] Eosinophil percentageOrdered By: Damir Mckee on 12-03-2024 Eosinophils/100 WBC (Bld) 0.0 % 0-5 [facility] Erythrocyte distribution wid th (RBC) [Ratio]Ordered By: Damir Mckee on 12-03-2024 Erythrocyte distribution width (RBC) [Entitic vol] 43.0 fL 35.1-43.9 [facility] Erythrocyte distribution wid th ratioOrdered By: Damir Mckee on 12-03-2024 Erythrocyte distribution width (RBC) [Ratio] 13.2 % 11.6-14.6 [facility] Erythrocyte distribution wid th standard deviationOrdered By: Damir Mckee on 12-03-2024 Erythrocyte distribution width (RBC) [Ratio] 43.0 fl 35.1-43.9 [facility] Estimated glomerular filtrat ion rate (GFR) AmericanOrdered By: Damir Mckee on 12-03-2024 Estimated GFR (MDRD) Amer 116 mL/min >60 [facility] Comment on above: GFR Calc Estimation of creatinine ryan aranceOrdered By: Damir Mckee on 12-03-2024 Estimated Creatinine Clearance Calc 63.94 ml/min [facility] Glomerular filtration rate ( GFR) estimationOrdered By: Damir Mckee on 12-03-2024 Estimated GFR (MDRD) Non-Af Amer 96 mL/min >60 [facility] Comment on above: Non- GFR Calc GFR/1.73 sq M.predicted among non-blacks MDRD (S/P/Bld) [Vol rate/Area] 96 mL/min/{1.73_m2} >60 [facility] Comment on above: Non- GFR Calc Glucose measurementOrdered B y: Damir Mckee on 12-03-2024 Glucose [Mass/Vol] 141 mg/dL High 74-106 [facility] Comment on above: Fasting Glucose resu lt greater than or equal to 126 mg/dL suggests DIABETES MELLITUS per A.D.A. criteria. Hematocrit Auto (Bld) [Volum e fraction]Ordered By: Damirsharlene Mckee on 12-03-2024 Hematocrit (Bld) [Volume fraction] 36.5 % Low 37-47 [facility] Hemoglobin measurementOrdere d By: Damirsharlene Mckee on 12-03-2024 Hemoglobin (Bld) [Mass/Vol] 11.9 g/dL Low 12.0-15.0 [facility] Immature granulocytes/100 WB C Auto (Bld)Ordered By: Damirsharlene Mckee on 12-03-2024 Immature granulocytes/100 WBC (Bld) 0.400 % 0.0-0.9 [facility] Comment on above: IG% - Immature Granu locytes (promyelocytes, myelocytes and metamyelocytes) > 1% indicates that a LEFT SHIFT is Present. LACTIC ACID WITH REFLEXon Lactate [Moles/Vol] 1.6 mmol/L Normal 0.5-2.2 [facility] Comment on above: Performed By: #### L [id number] ####Security Assurance Specialist: JACKI MNACILLA ([phone])[facility] ([facility])[address] [place] [address] Laboratory - Chemistry and C hemistry - challengeon 12-03-2024 Lactate [Moles/Vol] 1.6 mmol/L 0.5 - 2. 2 mmol/L [facility] Laboratory - Drug toxicology on 12-03-2024 Phenytoin [Mass/Vol] 14.1 ug/mL 10.0 - 20.0 ug/mL [facility] - Microbiology an d Antimicrobial susceptibilityon 12-03-2024 FLUAV RNA RUTH+probe Ql (Resp) Not detected Not Detected [facility] FLUBV RNA RUTH+probe Ql (Resp) Not detected Not Detected [facility] RSV RNA RUTH+probe Ql (Resp) Not detected Not Detected [facility] SARS-CoV-2 (COVID-19) RNA RUTH+probe Ql (Resp) Not detected Not Detected [facility] Lactic Acidon 12-03-2024 Lactate [Moles/Vol] 2.8 mmol/L Invalid Interpretation Code 0.4-1.9 [facility] Comment on above: Result Comment: Crit ical Result(s) Called at: 17:21:47 12/03/2024 by: ISSAC KEARNEY TO [address] Results read back by same. Performed By: #### L [id number] #### [facility] [address] [place], [address] Lactate [Moles/Vol] 4.7 mmol/L Invalid Interpretation Code 0.4-1.9 [facility] Comment on above: Order Comment: Y Result Comment: Crit ical Result(s) Called at: 13:02:25 12/03/2024 by: Fauzia Allred to Katia Hackett. Results read back by same. Performed By: #### L [id number] #### [facility] [address] [place], [address] Lactic acid measurementOrder ed By: Damir Mckee on 12-03-2024 Lactate [Moles/Vol] 2.8 mmol/L High 0.4-2.0 [facility] Comment on above: Critical Result(s) C alled at: 17:21:47 12/03/2024 by: ISSAC KEARNEY TO [address] Results read back by same. Lymphocytes Auto (Unsp spec) [#/Vol]Ordered By: Damirsharlene Mckee on 12-03-2024 Lymphocytes (Bld) [#/Vol] 0.66 10*3/uL Low 0.83-4.51 [facility] Lymphocytes/100 WBC Auto (Un sp spec)Ordered By: Damirsharlene Mckee on 12-03-2024 Lymphocytes/100 WBC (Bld) 4.8 % Low 19-41 [facility] MCV (mean corpuscular volume ) determinationOrdered By: Damir Mckee on 12-03-2024 MCV (RBC) [Entitic vol] 89.2 fL 81-99 [facility] Mean corpuscular hemoglobin (MCH) determinationOrdered By: [facility] on 12-03-2024 MCH (RBC) [Entitic mass] 29.1 pg 27.0-32.0 [facility] Mean corpuscular hemoglobin concentration (MCHC) determinationOrdered By: [facility] on 12-03-2024 MCHC (RBC) [Mass/Vol] 32.6 g/dL 32-36 [facility] Mean platelet volume determi nationOrdered By: [facility] on 12-03-2024 Platelet mean volume (Bld) [Entitic vol] 11.9 fL 6.2-12.0 [facility] Monocyte percentageOrdered B y: [facility] on 12-03-2024 Monocytes/100 WBC (Bld) 4.8 % 0-10 [facility] Neutrophil percentageOrdered By: Damirsharlene Mckee on 12-03-2024 Neutrophils/100 WBC (Bld) 89.7 % High 47-70 [facility] No Panel InformationOrdered By: Roxanna Perez on 12-03-2024 P [place] -3 degrees [facility] Work Phone: LA Interval 151 ms [facility] Work Phone: QRS [place] 38 degrees [facility] Work Phone: QRSD Interval 81 ms [facility] Work Phone: QT Interval 370 ms [employer] Work Phone: QTC Interval 453 ms [employer] Work Phone: T Wave [place] 5 degrees [employer] Work Phone: [phone] [employer] Work Phone: No Panel Informationon 12-03 Sinus rhythm Borderline T abnormalities, anterior leads Electronically Signed On 12-03-2024 22:55:54 EST by Roxanna [facility] HospitalmarleyNov[facility] Centerkary PERALES [facility] HospitalDavid preston DO - 12/03/2024 IMPRESSION: Sinus rhythm Borderline T abnormalities, anterior leads Electronically Signed On 12-03-2024 22:55:[address] [facility] Interpretation and review of laboratory results Normal [facility] Toxicity seen at concentrations >20.0 ug/mL [facility] Interpretation and review of laboratory results Normal [facility] Nucleated red blood cell per centageOrdered By: Damir Mckee on 12-03-2024 Nucleated RBC/100 WBC (Bld) [Ratio] 0 % 0-5 [facility] PHENYTOIN TOTALon 12-03-2024 PHENYTOIN, TOTAL 14.1 ug/mL Normal 10.0-20.0 [facility] Comment on above: Result Comment: RD Chu COMMENTS: Toxicity seen at concentrations >20.0 ug/mL Performed By: #### L [id number] ####Security Assurance Specialist: JACKI MANCILLA ([phone])[facility] Phenytoin (Dilantin) Levelon 12-03-2024 PHENYTOIN 2.6 mL Low 10.0-20.0 [facility] Comment on above: Performed By: #### L 100.0100 #### [facility] [address] [place], [address] Phenytoin [Mass/Vol]Ordered By: Damir Mckee on 12-03-2024 Phenytoin (Dilantin) Level 2.6 mL Low 10.0-20.0 [facility] Platelet countOrdered By: Iker Mckee on 12-03-2024 Platelets (Bld) [#/Vol] 199 10*3/uL 150-450 [facility] Potassium measurementOrdered By: Damirsharlene Mckee on 12-03-2024 Potassium [Moles/Vol] 3.3 mmol/L Low 3.5-5.1 [facility] RBC Auto (Bld) [#/Vol]Ordere d By: Damirsharlene Mckee on 12-03-2024 RBC (Bld) [#/Vol] 4.09 10*6/uL Low 4.2-5.4 [facility] RESPIRATORY PATHOGENS PANEL BY PCRon 12-03-2024 RESPIRATORY [...] Detected ORDER COMMENTS: Methodology: Multiplex PCR Normal [facility] Comment on above: Performed By: #### L [id number], [id number] ####Security Assurance Specialist: JACKI MANCILLA ([phone])[facility] ([address] SARS-COV-2, FLU A/B, AND RSV COMBOon 12-03-2024 SARS-CoV-2 (COVID-19) RNA RUTH+probe Ql (Unsp spec) SARS-COV-2 Reference Not Detected Not Detected RESPIRATORY SYNCYTIAL VIRUS Reference Not Detected Not Detected INFLUENZA A (CEPHEID) Reference Not Detected Not Detected INFLUENZA B (CEPHEID) Reference Not Detected Not Detected ORDER COMMENTS: Methodology: real-time, RT-PCR Normal [facility] Comment on above: Performed By: #### L AB15 #### Security Assurance Specialist: JACKI MANCILLA ([phone]) [facility] ([facility]) [address] [place] [address] SARS-CoV-2, Flu A/B, and RSV Comboon 12-03-2024 Interpretation and review of laboratory results [facility] Methodology: real-ti me, RT-PCR [facility] Serum anion gap measurementO rdered By: Damir Mckee on 12-03-2024 Anion gap [Moles/Vol] 8 mmol/L 5-15 [facility] Serum or plasma calcium jacob urement (mass/volume)Ordered By: Damir Mckee on 12-03-2024 Calcium [Mass/Vol] 7.4 mg/dL Low 8.5-10.1 [facility] Serum or plasma creatinine m easurement (mass/volume)Ordered By: Damir Mckee on 12-03-2024 Creatinine [Mass/Vol] 0.64 mg/dL 0.55-1.02 [facility] Comment on above: The validity of the calculated GFR & GFRAA in patients over 70 years has not been determined. Clinical correlation is essential. Serum or plasma phenytoin le kate (mass/volume)Ordered By: [facility] on 12-03-2024 Phenytoin [Mass/Vol] 2.6 mL Low 10.0-20.0 [facility] Serum or plasma urea nitroge n measurement (mass/volume)Ordered By: [facility] on 12-03-2024 Urea nitrogen [Mass/Vol] 19 mg/dL High 7-18 [facility] Sodium levelOrdered By: [facility] on 12-03-2024 Sodium [Moles/Vol] 143 mmol/L 136-145 [facility] URINE CULTUREon 12-03-2024 Bacteria identified Cx Nom (U) URINE CULTURE Reference Normal urogenital devyn present ESCHERICHIA COLI >100,000 CFU/mL Escherichia coli (A) AEROCOCCUS URINAE >100,000 CFU/mL Aerococcus urinae (A) Susceptibility testing not routinely performed except on isolates from blood culture. Aerococcus species are generally susceptible to beta-lactams. Resistance to sulfonamides is common in Aerococcus urinae. Providers should call the [facility] ([phone]) within 3 days if susceptibility testing is [...] Non-susceptible NO = No Interpretation ] Normal [facility] Comment on above: Performed By: #### L [id number], [id number] #### Security Assurance Specialist: JACKI MANCILLA ([phone]) [facility] ([facility]) [address] [place] [address] Urinalysis complete panel (U )on 12-03-2024 Bacteria LM.HPF (Urine sed) [#/Area] Loaded Abnormal Negative /HPF [facility] Bilirubin Ql (U) Negative Negative mg/dL [facility] Clarity (U) Extra Turbid Abnormal Clear [facility] Color (U) Yellow Lt. Yellow [facility] Epithelial cells.squamous LM.HPF (Urine sed) [#/Area] 11-25 Abnormal [facility] Glucose Ql (U) Normal Normal (<70) mg/dL [facility] Hemoglobin Ql (U) 0.06 mg/dL Abnormal Negative [facility] Hyaline casts Auto (Urine sed) [#/Area] Negative Negative /LPF [facility] Interpretation and review of laboratory results Abnormal [facility] Ketones (U) [Mass/Vol] Trace Abnormal Negat clay mg/dL [facility] Leukocyte clumps LM.HPF (Urine sed) [#/Area] Many Abnormal Negative /HPF [facility] Leukocyte esterase Test strip Ql (U) 500 Abnormal Negative James/uL [facility] Mucus LM.HPF (Urine sed) [#/Area] Few Negative /LPF [facility] Nitrite Ql (U) Negative Negative [facility] Non-Squamous Epithalial Cells, Urine 3-5 Abnormal Negative /HPF [facility] pH (U) 6.0 [pH] 5.0 - 8.0 pH [facility] Protein (U) [Mass/Vol] 100 mg/dL Abnormal Negative [facility] RBC LM.HPF (Urine sed) [#/Area] 11-25 Abnormal [facility] Specific gravity (U) [Rel density] High 1.005 - 1.030 [facility] Urobilinogen (U) [Mass/Vol] Normal Normal (0-1) mg/dL [facility] WBC LM.HPF (Urine sed) [#/Area] /[HPF] Abnormal [facility] Valproate levelOrdered By: Daniel Mckee on 12-03-2024 Valproic Acid (Depakene) Level 47 ug/mL Low 50-100 [facility] Valproic Acid (Depakene) Lev maribell 12-03-2024 VALPROIC ACID 47 ug/mL Low 50-100 [facility] Comment on above: Performed By: #### L 100.0100 #### [facility] [address] [place], [place] [address]priya. [place], [place], [id number] Vital signsOrdered By: Marian Perez on 12-03-2024 Heart rate 90 /min bpm [facility] Work Phone: White blood cell (WBC) count Ordered By: Damir Mckee on 12-03-2024 WBC (Bld) [#/Vol] 13.8 10*3/uL High 4.4-11.0 [facility] XR Chest Single viewon 12-03 No radiographic evid ence of acute cardiopulmonary process. Report Dictated on Electronically Signed By: Micah Adler MD Electronically Signed Date/Time: 12/03/2024 8:07 PM [facility] Patient Name: KATHERYN YIP : 1945 [...] the spine are present at multiple levels. [facility] Micah Adler MD - 12/03/2024 Patient [...] Electronically Signed Date/Time: 12/03/2024 8:07 PM EST [facility] [employer] Radiology Study observation (narrative) [employer] XR Chest Single viewOrdered By: Micah Adler on 12-03-2024 [employer] Work Phone: Kuldip 12-01-2024 [facility] Telephone ([facility]) -------- LULÚKATHERYN ([id number]) 1945 F Date Time Provider Department 12/01/24 JAYANT JIMENEZ During your visit today, we recorded the following information about you: Nabeel Smith 12/01/2024 11:10 AM Signed Provider referred patient to rheumatology. I placed into protal under ref# [id number] Allergies As of Date: 12/01/2024 (No Known [...] mg/spray (0.1 mL) nasal spray Use 1 [place] in the nose as needed for seizures [...] Encounter Status:Closed by NABEEL SMITH on 12/01/24 [facility] CNPN Telephone ([place]50[place]) -------- KATHERYN CHINO ([id number]) 1945 F Date Time Provider Department 12/01/24 [...] 12/02/2024 12:33 PM Addendum Spoke with nurse Rosita from patient's facility. Informed her of message per Dr. Jimenez with read back. Informed her rheumatology consult was faxed along with DEXA scan report. Consult and DEXA report faxed via RightFax to: [facility] PH: [phone] FAX : [phone] Confirmation received. 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 [[id number]] Prescriptions as of 12/02/2024 - lacosamide (VIMPAT) [...] mg/spray (0.1 mL) nasal spray Use 1 [place] in the nose as needed for seizures [...] Encounter Status:Closed by SILVIA ROGERS on 12/02/24 [facility] BD DXA - AXIAL SKELETONon BD DXA [...] years, Gender: Female SCANNER INFORMATION: DXA Model: [employer] [id number] Date Scanned: 11/26/2024 11:08 AM CLINICAL HISTORY: [...] had a previous bone density in the [facility] or the previous bone density was performed on a different DXA machine (new, updated model or different location) within the [facility]. VERTEBRAL FRACTURE ASSESSMENT Not performed. TRABECULAR BONE [...] FOR MORE INFORMATION ABOUT DIAGNOSIS AND TREATMENT: [facility] Center for Osteoporosis and Metabolic Bone Disease:? www.ccf.org/arthritis/os javed National Osteoporosis Foundation:? 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 VERTEBRAL FRACTURE ASSESSMENT Not performed. TRABECULAR BONE [...] FOR MORE INFORMATION ABOUT DIAGNOSIS AND TREATMENT: [facility] Center for Osteoporosis and Metabolic Bone Disease:? www.ccf.org/arthritis/os javed National Osteoporosis Foundation:? www.nof.org International Society of Clinical Densitometry www.iscd.org Application Packaging Specialist: SUNSHINE Transcribe Date/Time: Nov 29 2024 2:05P Dictated by : ALEXA CRUZ MD This examination was interpreted and the report reviewed and electronically signed by: ALEXA CRUZ MD on Nov 29 2024 2:06PM EST [id number] Normal [facility] Phenytoin (Dilantin) Levelon 11-14-2024 PHENYTOIN 8.8 mL Low 10.0-20.0 [facility] Comment on above: Order Comment: 211.2 1999 Performed By: #### L 501.7700 #### [facility] [place], [address] Phenytoin [Mass/Vol]Ordered By: Todd Velasquez on 11-14-2024 Phenytoin (Dilantin) Level 8.8 mL Low 10.0-20.0 [facility] Serum or plasma phenytoin le kate (mass/volume)Ordered By: Todd Velasquez on 11-14-2024 Phenytoin [Mass/Vol] 8.8 mL Low 10.0-20.0 [facility] CNPNon 11-11-2024 CNPKathrine Telephone (NEUSES) -------- KATHERYN CHINO ([id number]) 1945 F Date Time Provider Department 11/11/24 JAYANT JIMENEZ During your visit today, we recorded the following information about you: Franchesca Arana 11/11/2024 10:48 AM Signed Received Seizure monitoring report from [facility]. Uploaded to [facility]. Silvia Rogers RN 11/11/2024 11:04 AM Signed Noted. Spoke with nurse Obando, recommendations provided per MARIO. Letter, copies of LCM, Nayzilam spray faxed to facility. See 11/10/24 phone encounter. Silvia Rogers RN Allergies As of Date: 11/11/2024 (No Known Allergies) Date Reviewed: 09/24/2024 Reviewed by: Shalini Montana LPN - Fully Assessed Reason for Visit: Received Outside Medical Records [[id number]] Cmt: Seizure monitoring report Prescriptions as of [...] mg/spray (0.1 mL) nasal spray Use 1 [place] in the nose as needed for seizures [...] Encounter Status:Closed by SILVIA ROGERS on 11/11/24 [facility] 11-10-2024 [facility] Telephone (NE50MN) -------- KATHERYN CHINO ([id number]) 1945 F Date Time Provider Department 11/10/24 JAYANT JIMENEZ NE50MN During your visit today, we recorded the following information about you: Mildred Mendez 11/10/2024 1:45 PM Signed Seizure activity: Name of Caller : [facility] pt resides Relationship to patient: Caregiver Contact phone number: [phone] Date of seizure: 11/07/24 Duration: 20 minutes [...] was over and family declined. Informed Rosita 911 should be called if the patient has LOC, SOB or breathing stops, severe seizure, seizure clusters, and seizures that last for more than 2-3 minutes. Rosita verbalized understanding. Typical wait time for EMS to arrive in the area is 20 minutes, [place]. The patient does not have a seizure rescue medication, nurse is requesting. Forwarded to MARIO 2 harbinger for review. MEGA Christianson Kelly, APRN.DWAYNE 11/10/2024 [...] RN 11/10/2024 5:07 PM Signed Spoke with nurseGisella. Informed of recommendations, gave verbal of rx LCM titration, PHT wean with read back. She is requesting copy of rx sent to their facility. MEGA Christianson Kelly, APRN.DWAYNE 11/11/2024 6:05 AM Signed The following approved medication requests have been transmitted electronically. Requested Prescriptions Signed Prescriptions Disp Refills midazolam (NAYZILAM) 5 mg/spray (0.1 mL) nasal spray 2 Each 0 Sig: Use 1 [place] in the nose as needed for seizures lasting longer than 3 minutes for up to 90 days. May repeat dose in alternate nostril after 10 minutes based on response and tolerability. Authorizing Provider: ARTIS HAMILTON lacosamide (VIMPAT) 50 mg tab 42 tablet 0 Sig: Take 1 tablet by mouth daily at bedtime for 7 days, THE (more content not included)... Normal [facility] Albumin to globulin ratioOrd ered By: [facility] on 11-08-2024 Albumin/Globulin [Mass ratio] 0.8 {ratio} Low 0.9-2.4 [facility] Bilirubin, totalOrdered By: [facility] on 11-08-2024 Bilirubin [Mass/Vol] 0.40 mg/dL 0.20-1.00 [facility] Comment on above: For patients on eltr ombopag therapy, use of Dimension [place] TBIL is not recommended. Blood urea nitrogen (BUN)/cr eatinine ratioOrdered By: [facility] on 11-08-2024 Urea nitrogen/Creatinine [Mass ratio] 24.0 mg/mg High 10-20 [facility] CBC-Complete Blood Cnt No Di ffon 11-08-2024 Erythrocyte distribution width (RBC) [Ratio] 13.2 % Normal 11.6-14.6 [facility] Comment on above: Performed By: #### L 3410.9992, L500.2500, L506.1001, L509.1000, L501.2300, L501.5200, L3100.3450 #### [facility] [address] [place], [place], [id number] Hematocrit (Bld) [Volume fraction] 37.8 % Normal 37-47 [facility] Comment on above: Performed By: #### L 3410.9992, L500.2500, L506.1001, L509.1000, L501.2300, L501.5200, L3100.3450 #### [facility] [address] [place], [address] Hemoglobin (Bld) [Mass/Vol] 11.9 g/dL Low 12.0-15.0 [facility] Comment on above: Performed By: #### L 3410.9992, L500.2500, L506.1001, L509.1000, L501.2300, L501.5200, L3100.3450 #### [facility] [address] [place], [address] MCH (RBC) [Entitic mass] 28.2 pg Normal 27.0-32.0 [facility] Comment on above: Performed By: #### L 3410.9992, L500.2500, L506.1001, L509.1000, L501.2300, L501.5200, L3100.3450 #### [facility] [address] [place], [address] MCHC (RBC) [Mass/Vol] 31.5 g/dL Low 32-36 [facility] Comment on above: Performed By: #### L 3410.9992, L500.2500, L506.1001, L509.1000, L501.2300, L501.5200, L3100.3450 #### [facility] [address] [place], [address] MCV (RBC) [Entitic vol] 89.6 fL Normal 81-99 [facility] Comment on above: Performed By: #### L 3410.9992, L500.2500, L506.1001, L509.1000, L501.2300, L501.5200, L3100.3450 #### [facility] [address] [place], [address] Platelet mean volume (Bld) [Entitic vol] 12.1 fL High 6.2-12.0 [facility] Comment on above: Performed By: #### L 3410.9992, L500.2500, L506.1001, L509.1000, L501.2300, L501.5200, L3100.3450 #### [facility] [address] [place], [address] Platelets (Bld) [#/Vol] 227 10*3/uL Normal 150-450 [facility] Comment on above: Performed By: #### L 3410.9992, L500.2500, L506.1001, L509.1000, L501.2300, L501.5200, L3100.3450 #### [facility] [address] [place], [address] RBC (Bld) [#/Vol] 4.22 10*6/uL Normal 4.2-5.4 [facility] Comment on above: Performed By: #### L 3410.9992, L500.2500, L506.1001, L509.1000, L501.2300, L501.5200, L3100.3450 #### [facility] [address] [place], [address] RDW SD 43.1 fl Normal 35.1-43.9 [facility] Comment on above: Performed By: #### L 3410.9992, L500.2500, L506.1001, L509.1000, L501.2300, L501.5200, L3100.3450 #### [facility] [address] [place], [address] WBC (Bld) [#/Vol] 6.4 10*3/uL Normal 4.4-11.0 [facility] Comment on above: Performed By: #### L 3410.9992, L500.2500, L506.1001, L509.1000, L501.2300, L501.5200, L3100.3450 #### [facility] [address] [place], [address] Carbon dioxide measurementOr dered By: [facility] on 11-08-2024 CO2 [Moles/Vol] 28.0 mmol/L 21.0-32.0 [facility] Chloride measurementOrdered By: [facility] on 11-08-2024 Chloride [Moles/Vol] 109 mmol/L High 98-107 [facility] Comprehensive Metabolic Prof ilon 11-08-2024 Albumin [Mass/Vol] 3.7 g/dL Normal 3.2-5.0 [facility] Comment on above: Performed By: #### L 3410.9992, L500.2500, L506.1001, L509.1000, L501.2300, L501.5200, L3100.3450 #### [facility] [address] [place], [address] Albumin/Globulin [Mass ratio] 0.8 {ratio} Low 0.9-2.4 [facility] Comment on above: Performed By: #### L 3410.9992, L500.2500, L506.1001, L509.1000, L501.2300, L501.5200, L3100.3450 #### [facility] [address] [place], [address] ALK P 141 U/L High 45-117 [facility] Comment on above: Performed By: #### L 3410.9992, L500.2500, L506.1001, L509.1000, L501.2300, L501.5200, L3100.3450 #### [facility] [address] [place], [address] ALT [Catalytic activity/Vol] 17 U/L Normal 13-56 [facility] Comment on above: Performed By: #### L 3410.9992, L500.2500, L506.1001, L509.1000, L501.2300, L501.5200, L3100.3450 #### [facility] [address] [place], [address] AST [Catalytic activity/Vol] 26 U/L Normal 15-37 [facility] Comment on above: Performed By: #### L 3410.9992, L500.2500, L506.1001, L509.1000, L501.2300, L501.5200, L3100.3450 #### [facility] [address] [place], [address] Bilirubin [Mass/Vol] 0.40 mg/dL Normal 0.20-1.00 [facility] Comment on above: Result Comment: For patients on eltrombopag therapy, use of Dimension [place] TBIL is not recommended. Performed By: #### L 3410.9992, L500.2500, L506.1001, L509.1000, L501.2300, L501.5200, L3100.3450 #### [facility] [address] [place], [address] BUN/CRE 24.0 RATIO High 10-20 [facility] Comment on above: Performed By: #### L 3410.9992, L500.2500, L506.1001, L509.1000, L501.2300, L501.5200, L3100.3450 #### [facility] [address] [place], [address] CA,Total 9.7 mg/dL Normal 8.5-10.1 [facility] Comment on above: Performed By: #### L 3410.9992, L500.2500, L506.1001, L509.1000, L501.2300, L501.5200, L3100.3450 #### [facility] [address] [place], [address] Chloride [Moles/Vol] 109 mmol/L High 98-107 [facility] Comment on above: Performed By: #### L 3410.9992, L500.2500, L506.1001, L509.1000, L501.2300, L501.5200, L3100.3450 #### [facility] [address] [place], [address] CO2 [Moles/Vol] 28.0 mmol/L Normal 21.0-32.0 [facility] Comment on above: Performed By: #### L 3410.9992, L500.2500, L506.1001, L509.1000, L501.2300, L501.5200, L3100.3450 #### [facility] [address] [place], [address] Creatinine [Mass/Vol] 0.83 mg/dL Normal 0.55-1.02 [facility] Comment on above: Result Comment: The validity of the calculated GFR GFRAA in patients over 70 years has not been determined. Clinical correlation is essential. Performed By: #### L 3410.9992, L500.2500, L506.1001, L509.1000, L501.2300, L501.5200, L3100.3450 #### [facility] [address] [place], [address] EST GFR - AA 85 mL/min Normal >60 [facility] Comment on above: Result Comment: Afri can Turkmen GFR Calc Performed By: #### L 3410.9992, L500.2500, L506.1001, L509.1000, L501.2300, L501.5200, L3100.3450 #### [facility] [address] [facility] [place], [address] GAP 3 Low 5-15 [facility] Comment on above: Performed By: #### L 3410.9992, L500.2500, L506.1001, L509.1000, L501.2300, L501.5200, L3100.3450 #### [facility] [address] [place], [address] GFR/1.73 sq M.predicted among non-blacks MDRD (S/P/Bld) [Vol rate/Area] 71 mL/min/{1.73_m2} Normal >60 [facility] Comment on above: Result Comment: Non- GFR Calc Performed By: #### L 3410.9992, L500.2500, L506.1001, L509.1000, L501.2300, L501.5200, L3100.3450 #### [facility] [address] [place], [address] Globulin (S) [Mass/Vol] 4.6 g/dL High 2.2-4.2 [facility] Comment on above: Performed By: #### L 3410.9992, L500.2500, L506.1001, L509.1000, L501.2300, L501.5200, L3100.3450 #### [facility] [address] [place], [address] Glucose [Mass/Vol] 79 mg/dL Normal 74-106 [facility] Comment on above: Performed By: #### L 3410.9992, L500.2500, L506.1001, L509.1000, L501.2300, L501.5200, L3100.3450 #### [facility] [address] [place], [address] Potassium [Moles/Vol] 4.9 mmol/L Normal 3.5-5.1 [facility] Comment on above: Performed By: #### L 3410.9992, L500.2500, L506.1001, L509.1000, L501.2300, L501.5200, L3100.3450 #### [facility] [address] [place], [address] Sodium [Moles/Vol] 140 mmol/L Normal 136-145 [facility] Comment on above: Performed By: #### L 3410.9992, L500.2500, L506.1001, L509.1000, L501.2300, L501.5200, L3100.3450 #### [facility] [address] [place], [address] T PROT 8.3 g/dL High 6.4-8.2 [facility] Comment on above: Performed By: #### L 3410.9992, L500.2500, L506.1001, L509.1000, L501.2300, L501.5200, L3100.3450 #### [facility] [address] [place], [address] Urea nitrogen [Mass/Vol] 20 mg/dL High 7-18 [facility] Comment on above: Performed By: #### L 3410.9992, L500.2500, L506.1001, L509.1000, L501.2300, L501.5200, L3100.3450 #### [facility] [address] [place], [address] Erythrocyte distribution wid th (RBC) [Ratio][facility] Erythrocyte distribution width (RBC) [Entitic vol] 43.1 fL 35.1-43.9 [facility] Erythrocyte distribution wid th ratioOrdered By: [facility] on 11-08-2024 Erythrocyte distribution width (RBC) [Ratio] 13.2 % 11.6-14.6 [facility] Erythrocyte distribution wid th standard deviationOrdered By: [facility] on 11-08-2024 Erythrocyte distribution width (RBC) [Ratio] 43.1 fl 35.1-43.9 [facility] Estimated glomerular filtrat ion rate (GFR) AmericanOrdered By: [facility] on 11-08-2024 Estimated GFR (MDRD) Amer 85 mL/min >60 [facility] Comment on above: GFR Calc Glomerular filtration rate ( GFR) estimationOrdered By: [facility] on 11-08-2024 Estimated GFR (MDRD) Non-Af Amer 71 mL/min >60 [facility] Comment on above: Non- GFR Calc GFR/1.73 sq M.predicted among non-blacks MDRD (S/P/Bld) [Vol rate/Area] 71 mL/min/{1.73_m2} >60 [facility] Comment on above: Non- GFR Calc Glucose measurementOrdered B y: [facility] on 11-08-2024 Glucose [Mass/Vol] 79 mg/dL 74-106 [facility] Hematocrit Auto (Bld) [Volum e fraction]Ordered By: [facility] on 11-08-2024 Hematocrit (Bld) [Volume fraction] 37.8 % 37-47 [facility] Hemoglobin measurementOrdere d By: [facility] on 11-08-2024 Hemoglobin (Bld) [Mass/Vol] 11.9 g/dL Low 12.0-15.0 [facility] - Chemistry and C hemistry - challengeOrdered By: [facility] on 11-08-2024 AST [Catalytic activity/Vol] 26 U/L 15-37 [facility] MCV (mean corpuscular volume ) determinationOrdered By: [facility] on 11-08-2024 MCV (RBC) [Entitic vol] 89.6 fL 81-99 [facility] Mean corpuscular hemoglobin (MCH) determinationOrdered By: [facility] on 11-08-2024 MCH (RBC) [Entitic mass] 28.2 pg 27.0-32.0 [facility] Mean corpuscular hemoglobin concentration (MCHC) determinationOrdered By: [facility] on 11-08-2024 MCHC (RBC) [Mass/Vol] 31.5 g/dL Low 32-36 [facility] Mean platelet volume determi nationOrdered By: [facility] on 11-08-2024 Platelet mean volume (Bld) [Entitic vol] 12.1 fL High 6.2-12.0 [facility] Phenytoin (Dilantin) Levelon 11-08-2024 PHENYTOIN 7.9 mL Low 10.0-20.0 [facility] Comment on above: Order Comment: 211.2 Performed By: #### L 3410.9992, L500.2500, L506.1001, L509.1000, L501.2300, L501.5200, L3100.3450 #### [facility] [address] [place], [address] Phenytoin [Mass/Vol]Ordered By: [facility] on 11-08-2024 Phenytoin (Dilantin) Level 7.9 mL Low 10.0-20.0 [facility] Platelet countOrdered By: [facility] on 11-08-2024 Platelets (Bld) [#/Vol] 227 10*3/uL 150-450 [facility] Potassium measurementOrdered By: [facility] on 11-08-2024 Potassium [Moles/Vol] 4.9 mmol/L 3.5-5.1 [facility] RBC Auto (Bld) [#/Vol]Ordere d By: [facility] on 11-08-2024 RBC (Bld) [#/Vol] 4.22 10*6/uL 4.2-5.4 [facility] Serum anion gap measurementO rdered By: [facility] on 11-08-2024 Anion gap [Moles/Vol] 3 mmol/L Low 5-15 [facility] Serum globulin measurementOr dered By: [facility] on 11-08-2024 Globulin (S) [Mass/Vol] 4.6 g/dL High 2.2-4.2 [facility] Serum or plasma alanine ignacio otransferase (ALT) measurementOrdered By: [facility] on 11-08-2024 ALT [Catalytic activity/Vol] 17 U/L 13-56 [facility] Serum or plasma albumin jacob urement (mass/volume)Ordered By: [facility] on 11-08-2024 Albumin [Mass/Vol] 3.7 g/dL 3.2-5.0 [facility] Serum or plasma alkaline phillip sphatase measurementOrdered By: [facility] on 11-08-2024 ALP [Catalytic activity/Vol] 141 U/L High 45-117 [facility] Serum or plasma calcium jacob urement (mass/volume)Ordered By: [facility] on 11-08-2024 Calcium [Mass/Vol] 9.7 mg/dL 8.5-10.1 [facility] Serum or plasma creatinine m easurement (mass/volume)Ordered By: [facility] on 11-08-2024 Creatinine [Mass/Vol] 0.83 mg/dL 0.55-1.02 [facility] Comment on above: The validity of the calculated GFR & GFRAA in patients over 70 years has not been determined. Clinical correlation is essential. Serum or plasma phenytoin le kate (mass/volume)Ordered By: [facility] on 11-08-2024 Phenytoin [Mass/Vol] 7.9 mL Low 10.0-20.0 [facility] Serum or plasma urea nitroge n measurement (mass/volume)Ordered By: [facility] on 11-08-2024 Urea nitrogen [Mass/Vol] 20 mg/dL High 7-18 [facility] Sodium levelOrdered By: [facility] on 11-08-2024 Sodium [Moles/Vol] 140 mmol/L 136-145 [facility] Total proteinOrdered By: [facility] on 11-08-2024 Protein [Mass/Vol] 8.3 g/dL High 6.4-8.2 [facility] Valproate levelOrdered By: [facility] on 11-08-2024 Valproic Acid (Depakene) Level 68 ug/mL 50-100 [facility] Valproic Acid (Depakene) Lev maribell 11-08-2024 VALPROIC ACID 68 ug/mL Normal 50-100 [facility] Comment on above: Order Comment: 211.2 Performed By: #### L 3410.9992, L500.2500, L506.1001, L509.1000, L501.2300, L501.5200, L3100.3450 #### [facility] [address] [place], [address] White blood cell (WBC) count Ordered By: [facility] on 11-08-2024 WBC (Bld) [#/Vol] 6.4 10*3/uL 4.4-11.0 [facility] CNPAni 11-07-2024 [facility] Telephone (NE50MN) -------- KATHERYN CHINO ([id number]) 1945 F Date Time Provider Department 11/07/24 JAYANT JIMENEZ NE50MN During your visit today, we recorded the following information about you: Yocasta Rivers 11/07/2024 3:48 PM Signed General call : Full name of person calling: [facility] room Relationship to patient: Phone # [...] Status:Closed by SILVIA ROGERS on 11/10/24 Normal [facility] Absolute neutrophil countOrd ered By: Todd Velasquez on 09-29-2024 Neutrophils (Bld) [#/Vol] 3.3 10*3/uL 2.0-7.7 [facility] Albumin to globulin ratioOrd ered By: Todd Velasquez on 09-29-2024 Albumin/Globulin [Mass ratio] 0.7 {ratio} Low 0.9-2.4 [facility] Basophil percentageOrdered B y: Todd Velasquez on 09-29-2024 Basophils/100 WBC (Bld) 0.7 % 0-1 [facility] [facility] Bilirubin, totalOrdered By: Todd Velasquez on 09-29-2024 Bilirubin [Mass/Vol] 0.30 mg/dL 0.20-1.00 [facility] Comment on above: For patients on eltr ombopag therapy, use of Dimension [place] TBIL is not recommended. Blood urea nitrogen (BUN)/cr eatinine ratioOrdered By: Todd Velasquez on 09-29-2024 Urea nitrogen/Creatinine [Mass ratio] 23.9 mg/mg High 10-20 [facility] CBC W/Diff, Automatedon 09-14 Absolute Lymph 2.51 X10 3/uL Normal 0.83-4.51 [facility] Comment on above: Order Comment: - Performed By: #### L 3410.9992, L500.2500, L506.1001, L509.1000, L501.2300, L501.5200, L3100.3450 #### [facility] [address] [place], [place], [id number] (127 Absolute Neut 3.3 X10 3/uL Normal 2.0-7.7 [facility] Comment on above: Order Comment: -2 Performed By: #### L 3410.9992, L500.2500, L506.1001, L509.1000, L501.2300, L501.5200, L3100.3450 #### [facility] [address] [place], [address] Basophils/100 WBC (Bld) 0.7 % Normal 0-1 [facility] Comment on above: Order Comment: -2 Performed By: #### L 3410.9992, L500.2500, L506.1001, L509.1000, L501.2300, L501.5200, L3100.3450 #### [facility] [address] [place], [address] Eosinophils/100 WBC (Bld) 1.8 % Normal 0-5 [facility] Comment on above: Order Comment: 211-2 Performed By: #### L 3410.9992, L500.2500, L506.1001, L509.1000, L501.2300, L501.5200, L3100.3450 #### [facility] [address] [place], [address] Erythrocyte distribution width (RBC) [Ratio] 13.7 % Normal 11.6-14.6 [facility] Comment on above: Order Comment: 211-2 Performed By: #### L 3410.9992, L500.2500, L506.1001, L509.1000, L501.2300, L501.5200, L3100.3450 #### [facility] [address] [place], [address] Hematocrit (Bld) [Volume fraction] 34.3 % Low 37-47 [facility] Comment on above: Order Comment: 211-2 Performed By: #### L 3410.9992, L500.2500, L506.1001, L509.1000, L501.2300, L501.5200, L3100.3450 #### [facility] [address] [place], [address] Hemoglobin (Bld) [Mass/Vol] 10.7 g/dL Low 12.0-15.0 [facility] Comment on above: Order Comment: 211-2 Performed By: #### L 3410.9992, L500.2500, L506.1001, L509.1000, L501.2300, L501.5200, L3100.3450 #### [facility] [address] [place], [address] IG% 0.300 Normal 0.0-0.9 [facility] Comment on above: Order Comment: Result Comment: IG% - Immature Granulocytes (promyelocytes, myelocytes and metamyelocytes) > 1% indicates that a LEFT SHIFT is Present. Performed By: #### L 3410.9992, L500.2500, L506.1001, L509.1000, L501.2300, L501.5200, L3100.3450 #### [facility] [address] [place], [address] Lymphocytes/100 WBC (Bld) 37.1 % Normal 19-41 [facility] Comment on above: Order Comment: Performed By: #### L 3410.9992, L500.2500, L506.1001, L509.1000, L501.2300, L501.5200, L3100.3450 #### [facility] [address] [place], [address] MCH (RBC) [Entitic mass] 29.2 pg Normal 27.0-32.0 [facility] Comment on above: Order Comment: Performed By: #### L 3410.9992, L500.2500, L506.1001, L509.1000, L501.2300, L501.5200, L3100.3450 #### [facility] [address] [place], [address] MCHC (RBC) [Mass/Vol] 31.2 g/dL Low 32-36 [facility] Comment on above: Order Comment: - Performed By: #### L 3410.9992, L500.2500, L506.1001, L509.1000, L501.2300, L501.5200, L3100.3450 #### [facility] [address] [place], [address] MCV (RBC) [Entitic vol] 93.7 fL Normal 81-99 [facility] Comment on above: Order Comment: 211-2 Performed By: #### L 3410.9992, L500.2500, L506.1001, L509.1000, L501.2300, L501.5200, L3100.3450 #### [facility] [address] [place], [address] Monocytes/100 WBC (Bld) 12.1 % High 0-10 [facility] Comment on above: Order Comment: 211-2 Performed By: #### L 3410.9992, L500.2500, L506.1001, L509.1000, L501.2300, L501.5200, L3100.3450 #### [facility] [address] [place], [address] Neutrophils/100 WBC (Bld) 48.0 % Normal 47-70 [facility] Comment on above: Order Comment: 211-2 Performed By: #### L 3410.9992, L500.2500, L506.1001, L509.1000, L501.2300, L501.5200, L3100.3450 #### [facility] [address] [place], [address] Nucleated RBC (Bld) [#/Vol] 0 10*3/uL Normal 0-5 [facility] Comment on above: Order Comment: 211-2 Performed By: #### L 3410.9992, L500.2500, L506.1001, L509.1000, L501.2300, L501.5200, L3100.3450 #### [facility] [address] [place], [address] Platelet mean volume (Bld) [Entitic vol] 11.8 fL Normal 6.2-12.0 [facility] Comment on above: Order Comment: 211-2 Performed By: #### L 3410.9992, L500.2500, L506.1001, L509.1000, L501.2300, L501.5200, L3100.3450 #### [facility] [address] [place], [address] Platelets (Bld) [#/Vol] 195 10*3/uL Normal 150-450 [facility] Comment on above: Order Comment: 211-2 Performed By: #### L 3410.9992, L500.2500, L506.1001, L509.1000, L501.2300, L501.5200, L3100.3450 #### [facility] [address] [place], [address] RBC (Bld) [#/Vol] 3.66 10*6/uL Low 4.2-5.4 [facility] Comment on above: Order Comment: 211-2 Performed By: #### L 3410.9992, L500.2500, L506.1001, L509.1000, L501.2300, L501.5200, L3100.3450 #### [facility] [address] [place], [address] RDW SD 46.8 fl High 35.1-43.9 [facility] Comment on above: Order Comment: 211-2 Performed By: #### L 3410.9992, L500.2500, L506.1001, L509.1000, L501.2300, L501.5200, L3100.3450 #### [facility] [address] [place], [address] WBC (Bld) [#/Vol] 6.8 10*3/uL Normal 4.4-11.0 [facility] Comment on above: Order Comment: 211-2 Performed By: #### L 3410.9992, L500.2500, L506.1001, L509.1000, L501.2300, L501.5200, L3100.3450 #### [facility] [address] [place], [address] Carbon dioxide measurementOr dered By: Todd Velasquez on 09-29-2024 CO2 [Moles/Vol] 24.0 mmol/L 21.0-32.0 [facility] Chloride measurementOrdered By: Todd Velasquez on 09-29-2024 Chloride [Moles/Vol] 110 mmol/L High 98-107 [facility] Comprehensive Metabolic Prof ilon 09-29-2024 Albumin [Mass/Vol] 2.9 g/dL Low 3.2-5.0 [facility] Comment on above: Order Comment: 211-2 Performed By: #### L 3410.9992, L500.2500, L506.1001, L509.1000, L501.2300, L501.5200, L3100.3450 #### [facility] [address] [place], [address] Albumin/Globulin [Mass ratio] 0.7 {ratio} Low 0.9-2.4 [facility] Comment on above: Order Comment: 211-2 Performed By: #### L 3410.9992, L500.2500, L506.1001, L509.1000, L501.2300, L501.5200, L3100.3450 #### [facility] [address] [place], [address] ALK P 114 U/L Normal 45-117 [facility] Comment on above: Order Comment: 211-2 Performed By: #### L 3410.9992, L500.2500, L506.1001, L509.1000, L501.2300, L501.5200, L3100.3450 #### [facility] [address] [place], [address] ALT [Catalytic activity/Vol] 18 U/L Normal 13-56 [facility] Comment on above: Order Comment: 211-2 Performed By: #### L 3410.9992, L500.2500, L506.1001, L509.1000, L501.2300, L501.5200, L3100.3450 #### [facility] [address] [place], [address] AST [Catalytic activity/Vol] 24 U/L Normal 15-37 [facility] Comment on above: Order Comment: - Performed By: #### L 3410.9992, L500.2500, L506.1001, L509.1000, L501.2300, L501.5200, L3100.3450 #### [facility] [address] [place], [address] Bilirubin [Mass/Vol] 0.30 mg/dL Normal 0.20-1.00 [facility] Comment on above: Order Comment: Result Comment: For patients on eltrombopag therapy, use of Dimension [place] TBIL is not recommended. Performed By: #### L 3410.9992, L500.2500, L506.1001, L509.1000, L501.2300, L501.5200, L3100.3450 #### [facility] [address] [place], [address] BUN/CRE 23.9 RATIO High 10-20 [facility] Comment on above: Order Comment: Performed By: #### L 3410.9992, L500.2500, L506.1001, L509.1000, L501.2300, L501.5200, L3100.3450 #### [facility] [address] [place], [address] CA,Total 9.2 mg/dL Normal 8.5-10.1 [facility] Comment on above: Order Comment: - Performed By: #### L 3410.9992, L500.2500, L506.1001, L509.1000, L501.2300, L501.5200, L3100.3450 #### [facility] [address] [place], [address] Chloride [Moles/Vol] 110 mmol/L High 98-107 [facility] Comment on above: Order Comment: Performed By: #### L 3410.9992, L500.2500, L506.1001, L509.1000, L501.2300, L501.5200, L3100.3450 #### [facility] [address] [place], [address] CO2 [Moles/Vol] 24.0 mmol/L Normal 21.0-32.0 [facility] Comment on above: Order Comment: Performed By: #### L 3410.9992, L500.2500, L506.1001, L509.1000, L501.2300, L501.5200, L3100.3450 #### [facility] [address] [place], [address] Creatinine [Mass/Vol] 0.80 mg/dL Normal 0.55-1.02 [facility] Comment on above: Order Comment: Result Comment: The validity of the calculated GFR GFRAA in patients over 70 years has not been determined. Clinical correlation is essential. Performed By: #### L 3410.9992, L500.2500, L506.1001, L509.1000, L501.2300, L501.5200, L3100.3450 #### [facility] [address] [place], [address] EST GFR - AA 90 mL/min Normal >60 [facility] Comment on above: Order Comment: Result Comment: Afri can Turkmen GFR Calc Performed By: #### L 3410.9992, L500.2500, L506.1001, L509.1000, L501.2300, L501.5200, L3100.3450 #### [facility] [address] [place], [address] GAP 6 Normal 5-15 [facility] Comment on above: Order Comment: Performed By: #### L 3410.9992, L500.2500, L506.1001, L509.1000, L501.2300, L501.5200, L3100.3450 #### [facility] [address] [place], [address] GFR/1.73 sq M.predicted among non-blacks MDRD (S/P/Bld) [Vol rate/Area] 74 mL/min/{1.73_m2} Normal >60 [facility] Comment on above: Order Comment: Result Comment: Non- GFR Calc Performed By: #### L 3410.9992, L500.2500, L506.1001, L509.1000, L501.2300, L501.5200, L3100.3450 #### [facility] [address] [place], [address] Globulin (S) [Mass/Vol] 4.0 g/dL Normal 2.2-4.2 [facility] Comment on above: Order Comment: - Performed By: #### L 3410.9992, L500.2500, L506.1001, L509.1000, L501.2300, L501.5200, L3100.3450 #### [facility] [address] [place], [address] Glucose [Mass/Vol] 91 mg/dL Normal 74-106 [facility] Comment on above: Order Comment: - Performed By: #### L 3410.9992, L500.2500, L506.1001, L509.1000, L501.2300, L501.5200, L3100.3450 #### [facility] [address] [place], [address] Potassium [Moles/Vol] 4.3 mmol/L Normal 3.5-5.1 [facility] Comment on above: Order Comment: -2 Performed By: #### L 3410.9992, L500.2500, L506.1001, L509.1000, L501.2300, L501.5200, L3100.3450 #### [facility] [address] [place], [address] Sodium [Moles/Vol] 140 mmol/L Normal 136-145 [facility] Comment on above: Order Comment: 211-2 Performed By: #### L 3410.9992, L500.2500, L506.1001, L509.1000, L501.2300, L501.5200, L3100.3450 #### [facility] [address] [place], [address] T PROT 6.9 g/dL Normal 6.4-8.2 [facility] Comment on above: Order Comment: 211-2 Performed By: #### L 3410.9992, L500.2500, L506.1001, L509.1000, L501.2300, L501.5200, L3100.3450 #### [facility] [address] [place], [address] Urea nitrogen [Mass/Vol] 19 mg/dL High 7-18 [facility] Comment on above: Order Comment: 211-2 Performed By: #### L 3410.9992, L500.2500, L506.1001, L509.1000, L501.2300, L501.5200, L3100.3450 #### [facility] [address] [place], [place], [id number] Eosinophil percentageOrdered By: Todd Velasquez on 09-29-2024 Eosinophils/100 WBC (Bld) 1.8 % 0-5 [facility] Erythrocyte distribution wid th (RBC) [Ratio]Ordered By: Todd Velasquez on 09-29-2024 Erythrocyte distribution width (RBC) [Entitic vol] 46.8 fL High 35.1-43.9 [facility] Erythrocyte distribution wid th ratioOrdered By: Todd Velasquez on 09-29-2024 Erythrocyte distribution width (RBC) [Ratio] 13.7 % 11.6-14.6 [facility] Estimated glomerular filtrat ion rate (GFR) AmericanOrdered By: Todd Velasquez on 09-29-2024 Estimated GFR (MDRD) Amer 90 mL/min >60 [facility] Comment on above: GFR Calc Glomerular filtration rate ( GFR) estimationOrdered By: Todd Velasquez on 09-29-2024 Estimated GFR (MDRD) Non-Af Amer 74 mL/min >60 [facility] Comment on above: Non- GFR Calc Glucose measurementOrdered B y: Todd Velasquez on 09-29-2024 Glucose [Mass/Vol] 91 mg/dL 74-106 [facility] Hematocrit Auto (Bld) [Volum e fraction]Ordered By: Todd Velasquez on 09-29-2024 Hematocrit (Bld) [Volume fraction] 34.3 % Low 37-47 [facility] Hemoglobin measurementOrdere d By: Todd Velasquez on 09-29-2024 Hemoglobin (Bld) [Mass/Vol] 10.7 g/dL Low 12.0-15.0 [facility] Immature granulocytes/100 WB C Auto (Bld)Ordered By: Todd Velasquez on 09-29-2024 Immature granulocytes/100 WBC (Bld) 0.300 % 0.0-0.9 [facility] Comment on above: IG% - Immature Granu locytes (promyelocytes, myelocytes and metamyelocytes) > 1% indicates that a LEFT SHIFT is Present. Laboratory - Chemistry and C hemistry - challengeOrdered By: Todd Velasquez on 09-29-2024 AST [Catalytic activity/Vol] 24 U/L 15-37 [facility] Lymphocytes Auto (Unsp spec) [#/Vol]Ordered By: Todd Velasquez on 09-29-2024 Lymphocytes (Bld) [#/Vol] 2.51 10*3/uL 0.83-4.51 [facility] Lymphocytes/100 WBC Auto (Un sp spec)Ordered By: Todd Velasquez on 09-29-2024 Lymphocytes/100 WBC (Bld) 37.1 % 19-41 [facility] MCV (mean corpuscular volume ) determinationOrdered By: Todd Velasquez on 09-29-2024 MCV (RBC) [Entitic vol] 93.7 fL 81-99 [facility] Mean corpuscular hemoglobin (MCH) determinationOrdered By: Todd Velasquez on 09-29-2024 MCH (RBC) [Entitic mass] 29.2 pg 27.0-32.0 [facility] Mean corpuscular hemoglobin concentration (MCHC) determinationOrdered By: Todd Velasquez on 09-29-2024 MCHC (RBC) [Mass/Vol] 31.2 g/dL Low 32-36 [facility] Mean platelet volume determi nationOrdered By: Todd Velasquez on 09-29-2024 Platelet mean volume (Bld) [Entitic vol] 11.8 fL 6.2-12.0 [facility] Monocyte percentageOrdered B y: Todd Velasquez on 09-29-2024 Monocytes/100 WBC (Bld) 12.1 % High 0-10 [facility] Neutrophil percentageOrdered By: Todd Velasquez on 09-29-2024 Neutrophils/100 WBC (Bld) 48.0 % 47-70 [facility] Nucleated red blood cell per centageOrdered By: Todd Velasquez on 09-29-2024 Nucleated RBC/100 WBC (Bld) [Ratio] 0 % 0-5 [facility] Phenytoin (Dilantin) Levelon 09-29-2024 PHENYTOIN 14.0 mL Normal 10.0-20.0 [facility] Comment on above: Order Comment: [id number] [id number] Performed By: #### L 3410.9992, L500.2500, L506.1001, L509.1000, L501.2300, L501.5200, L3100.3450 #### [facility] [address] [facility] [place], [place], [id number] Phenytoin [Mass/Vol]Ordered By: Todd Velasquez on 09-29-2024 Phenytoin (Dilantin) Level 14.0 mL 10.0-20.0 [facility] Platelet countOrdered By: Whitley on 09-29-2024 Platelets (Bld) [#/Vol] 195 10*3/uL 150-450 [facility] Potassium measurementOrdered By: Todd Velasquez on 09-29-2024 Potassium [Moles/Vol] 4.3 mmol/L 3.5-5.1 [facility] RBC Auto (Bld) [#/Vol]Ordere d By: Todd Velasquez on 09-29-2024 RBC (Bld) [#/Vol] 3.66 10*6/uL Low 4.2-5.4 [facility] Serum anion gap measurementO rdered By: Todd Velasquez on 09-29-2024 Anion gap [Moles/Vol] 6 mmol/L 5-15 [facility] Serum globulin measurementOr dered By: Todd Velasquez on 09-29-2024 Globulin (S) [Mass/Vol] 4.0 g/dL 2.2-4.2 [facility] Serum or plasma alanine ignacio otransferase (ALT) measurementOrdered By: Todd Velasquez on 09-29-2024 ALT [Catalytic activity/Vol] 18 U/L 13-56 [facility] Serum or plasma albumin jacob urement (mass/volume)Ordered By: Todd Velasquez on 09-29-2024 Albumin [Mass/Vol] 2.9 g/dL Low 3.2-5.0 [facility] Serum or plasma alkaline phillip sphatase measurementOrdered By: Todd Velasquez on 09-29-2024 ALP [Catalytic activity/Vol] 114 U/L 45-117 [facility] Serum or plasma calcium jacob urement (mass/volume)Ordered By: Todd Velasquez on 09-29-2024 Calcium [Mass/Vol] 9.2 mg/dL 8.5-10.1 [facility] Serum or plasma creatinine m easurement (mass/volume)Ordered By: Todd Velasquez on 09-29-2024 Creatinine [Mass/Vol] 0.80 mg/dL 0.55-1.02 [facility] Comment on above: The validity of the calculated GFR & GFRAA in patients over 70 years has not been determined. Clinical correlation is essential. Serum or plasma urea nitroge n measurement (mass/volume)Ordered By: Todd Velasquez on 09-29-2024 Urea nitrogen [Mass/Vol] 19 mg/dL High 7-18 [facility] Sodium levelOrdered By: Todd Velasquez on 09-29-2024 Sodium [Moles/Vol] 140 mmol/L 136-145 [facility] Total proteinOrdered By: Ignacia Velasquez on 09-29-2024 Protein [Mass/Vol] 6.9 g/dL 6.4-8.2 [facility] Valproate levelOrdered By: Barbara Velasquez on 09-29-2024 Valproic Acid (Depakene) Level 87 ug/mL 50-100 [facility] Valproic Acid (Depakene) Lev maribell 09-29-2024 VALPROIC ACID 87 ug/mL Normal 50-100 [facility] Comment on above: Order Comment: 211-2 0730 Performed By: #### L 3410.9992, L500.2500, L506.1001, L509.1000, L501.2300, L501.5200, L3100.3450 #### [facility] [address] [place], [place], [address] White blood cell (WBC) count Ordered By: Todd Velasquez on 09-29-2024 WBC (Bld) [#/Vol] 6.8 10*3/uL 4.4-11.0 [facility] Ammoniaon 09-26-2024 Ammonia (P) [Moles/Vol] 41.0 umol/L High 11-32 [facility] Comment on above: Order Comment: 211.2 Performed By: #### L 100.0100 #### [facility] [address] [place], [place], [id number] [facility] KATHERYN CHINO ([id number]) 1945 F Date Time Provider Department 09/26/24 JAYANT JIMENEZ NE50MN During your visit today, we recorded the following information about you: Sherrell Bojorquez RN 09/26/2024 1:14 PM Signed Per patient's nurse, Katia - recent labs are trough No ETH level completed Current ASMs: PHT 100 mg BID VPA 750 mg TID ETH 250 mg BID Forwarded to [address] for review/recommendation Sherrell Bojorquez RN Per MALCOLM of 09/24/2024 w/Dr. Jimenez The doses listed on facility paperwork are different than what was listed on discharge summary at [facility]. Called the facility and confirmed the [...] Switch Dilantin to Vimpat, zonisamide. 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 (more content not included)... Normal [facility] Phenytoin (Dilantin) Levelon 09-26-2024 PHENYTOIN 15.4 mL Normal 10.0-20.0 [facility] Comment on above: Order Comment: 2129 Performed By: #### L 100.0100 #### [facility] [address] [place], [place], [id number] Phenytoin [Mass/Vol]Ordered By: Todd Velasquez on 09-26-2024 Phenytoin (Dilantin) Level 15.4 mL 10.0-20.0 [facility] Valproate levelOrdered By: Barbara Velasquez on 09-26-2024 Valproic Acid (Depakene) Level 112 ug/mL High 50-100 [facility] Valproic Acid (Depakene) Lev maribell 09-26-2024 VALPROIC ACID 112 ug/mL High 50-100 [facility] Comment on above: Order Comment: 2129 Performed By: #### L 100.0100 #### [facility] [address] [place], [place], [id number] Venous blood ammonia measure mentOrdered By: Todd Velasquez on 09-26-2024 Ammonia (P) [Moles/Vol] 41.0 umol/L High 11-32 [facility] CNOVon 09-24-2024 CNOV Office Visit (NAVEENBA ) -------- KATHERYN CHINO ([id number]) 1945 F Date Time Provider Department 09/24/24 [...] as Ammonia (needs to be done at [facility]) I will order a bone scan called DEXA to see if you have suffered osteoporosis due to rn long term care use of seizure medications. Reduce the morning [...] precautions - No driving in the state [facility] until seizure free for 6 months. [...] factor. Jayant Jimenez MD Associate Staff, Epilepsy [facility] September 24, 2024 Office phone: [phone] BONE MINERAL DENSITY PATIENT INSTRUCTIONS Bone mineral [...] Jayant Jimenez MD 09/24/2024 11:19 AM Signed [facility] Patient Name: Katheryn GARCIA Date of : 1945 INITIAL EPILEPSY CLINIC NOTE 09/24/2024 8:00 AM CHIEF COMPLAINT: New Patient and Epilepsy HISTORY OF PRESENT ILLNESS Ms. Chino is a 79 year old female seen in [facility] for initial consultation. [...] with AEDs . [place] and she has more suervison with AEDs [...] it lasted ~ 25 mins). Admitted to [facility] where Dilantin and Depakote levels were low. Doses were adjusted- PHT 100 mg TID and VPA 1000 mg TID. Zarontin was continued at 250 mg BID. Interval Seizure History The doses listed on facility paperwork are different than what was listed on discharge summary at [facility]. Called the facility and confirmed the following doses (more content not included)... Normal [facility] Phenytoin (Dilantin) Levelon 09-22-2024 PHENYTOIN 21.7 mL High 10.0-20.0 [facility] Comment on above: Order Comment: 211.2 Performed By: #### L 3410.9992, L500.2500, L506.1001, L509.1000, L501.2300, L501.5200, L3100.3450 #### [facility] [address], [address] Phenytoin [Mass/Vol]Ordered By: Todd Velasquez on 09-22-2024 Phenytoin (Dilantin) Level 21.7 mL High 10.0-20.0 [facility] CNPNon 09-19-2024 CNPN Telephone (NE25MN) -------- KATHERYN CHINO ([id number]) 1945 F Date Time Provider Department 09/19/24 JAYANT JIMENEZ NE50MN During your visit today, we recorded the following information about you: Alexandra Sainz 09/19/2024 4:18 PM Signed [facility] [phone] / [phone] COLLECTION DATE AND TIME: 09/19/2024 - 06:15 Uploaded to [facility] Silvia Rogers RN 09/22/2024 12:09 PM Signed [...] Status:Closed by SILVIA ROGERS on 09/22/24 Normal [facility] Phenytoin (Dilantin) Levelon 09-19-2024 PHENYTOIN 21.9 mL High 10.0-20.0 [facility] Comment on above: Order Comment: 211.2 Performed By: #### L 3410.9992, L500.2500, L506.1001, L509.1000, L501.2300, L501.5200, L3100.3450 #### [facility] [address] [place], [place], [id number] (119) Phenytoin [Mass/Vol]Ordered By: Todd Velasquez on 09-19-2024 Phenytoin (Dilantin) Level 21.9 mL High 10.0-20.0 [facility] Phenytoin (Dilantin) Levelon 09-17-2024 PHENYTOIN 22.0 mL High 10.0-20.0 [facility] Comment on above: Order Comment: 1940 Performed By: #### L 3410.9992, L500.2500, L506.1001, L509.1000, L501.2300, L501.5200, L3100.3450 #### [facility] [address] [place], [address] Phenytoin [Mass/Vol]Ordered By: Todd Velasquez on 09-17-2024 Phenytoin (Dilantin) Level 22.0 mL High 10.0-20.0 [facility] Phenytoin (Dilantin) Levelon 09-15-2024 PHENYTOIN 25.1 mL High 10.0-20.0 [facility] Comment on above: Order Comment: 211.2 0000 Performed By: #### L 3410.9992, L500.2500, L506.1001, L509.1000, L501.2300, L501.5200, L3100.3450 #### [facility] [address] [place], [place], [phone] [phone] Valproic Acid (Depakene) Lev maribell 09-15-2024 VALPROIC ACID 92 ug/mL Normal 50-100 [facility] Comment on above: Order Comment: 211.2 0000 Performed By: #### L 3410.9992, L500.2500, L506.1001, L509.1000, L501.2300, L501.5200, L3100.3450 #### [facility] [address] [place], [address] CNPNon 09-05-2024 CNPN Telephone (NE50MN) -------- KATHERYN CHINO ([id number]) 1945 F Date Time Provider Department 09/05/24 JAYANT JIMENEZ NE50MN During your visit today, we recorded the following information about you: Shelly Alexandra Villarreal 09/05/2024 2:22 PM Signed Form received: From (agency / facility / parent): [facility] personal fitness manager (if given): Brea Malloy RN Phone #: [phone] Fax # : [phone] Email: n/a Information requested: Review Labs Collected 09/05/2024 - 05:30 for Valproic Acid and Dilantin and approval for medication dosages Patient of Dr. Jimenez Forwarded to nurse. Also uploaded to [facility]. Sherrell Bojorquez RN 09/05/2024 3:11 PM Signed Called [facility] - left message for nursing staff to contact office MEGA Mondragon Elizabeth, RN 09/05/2024 3:11 PM Signed Patient update per nurse Renae, [facility]: - Last known seizure: 08/17/2024 - labs [...] trough NOV: 09/24/2024 w/Dr. Jimenez Forwarded to [facility] for review Sherrell Bojorquez RN Per neurology [...] RN 09/05/2024 4:34 PM Signed Spoke with Renae nurse, [facility] - provided recommendation/she verbalizes understanding. MEGA Mondragon Christina M, RN 09/22/2024 12:09 PM Signed === MEGA Christianson Kelly, APRN.DWAYNE 09/22/2024 3:12 PM Addendum PHT level mildly elevated- if no se's would continue current dose Artis Hamilton APRN.Silvia Willis RN 09/23/2024 5:14 PM Signed Spoke with ADIA Chen at [facility]. Confirmed no side effects and to continue with current PHT doses. April verbalized understanding. MEGA Christianson Lucretia 09/26/2024 12:38 PM Signed VPA labs uploaded [...] - pantoprazo (more content not included)... Normal [facility] Phenytoin (Dilantin) Levelon 09-05-2024 PHENYTOIN 15.2 mL Normal 10.0-20.0 [facility] Comment on above: Order Comment: 211.2 Performed By: #### L 3410.9992, L500.2500, L506.1001, L509.1000, L501.2300, L501.5200, L3100.3450 #### [facility] [address] [place], [address] Valproic Acid (Depakene) Matt nicoleon 09-05-2024 VALPROIC ACID 120 ug/mL High 50-100 [facility] Comment on above: Order Comment: 211.2 Performed By: #### L 3410.9992, L500.2500, L506.1001, L509.1000, L501.2300, L501.5200, L3100.3450 #### [facility] [address] [place], [address] Basic Metabolic Profile (BMP )on 08-27-2024 BUN/CRE 22.3 RATIO High 10-20 [facility] Comment on above: Order Comment: 211.2 Performed By: #### L 500.2500 #### [facility] [address] [place], [address] CA,Total 8.8 mg/dL Normal 8.5-10.1 [facility] Comment on above: Order Comment: 211.2 Performed By: #### L 500.2500 #### [facility] [address] [place], [address] Chloride [Moles/Vol] 110 mmol/L High 98-107 [facility] Comment on above: Order Comment: 211.2 Performed By: #### L 500.2500 #### [facility] [address] [place], [address] CO2 [Moles/Vol] 28.0 mmol/L Normal 21.0-32.0 [facility] Comment on above: Order Comment: 211.2 Performed By: #### L 500.2500 #### [facility] [address] [place], [address] Creatinine [Mass/Vol] 0.67 mg/dL Normal 0.55-1.02 [facility] Comment on above: Order Comment: 211.2 Result Comment: The validity of the calculated GFR GFRAA in patients over 70 years has not been determined. Clinical correlation is essential. Performed By: #### L 500.2500 #### [facility] [address] [place], [address] EST GFR - AA 109 mL/min Normal >60 [facility] Comment on above: Order Comment: 211.2 Result Comment: Afri can Turkmen GFR Calc Performed By: #### L 500.2500 #### [facility] [address] [place], [address] GAP 5 Normal 5-15 [facility] Comment on above: Order Comment: 211.2 Performed By: #### L 500.2500 #### [facility] [address] [place], [address] GFR/1.73 sq M.predicted among non-blacks MDRD (S/P/Bld) [Vol rate/Area] 90 mL/min/{1.73_m2} Normal >60 [facility] Comment on above: Order Comment: 211.2 Result Comment: Non- GFR Calc Performed By: #### L 500.2500 #### [facility] [address] [place], [address] Glucose [Mass/Vol] 88 mg/dL Normal 74-106 [facility] Comment on above: Order Comment: 211.2 Performed By: #### L 500.2500 #### [facility] [address] [place], [address] Potassium [Moles/Vol] 4.3 mmol/L Normal 3.5-5.1 [facility] Comment on above: Order Comment: 211.2 Performed By: #### L 500.2500 #### [facility] [address] [place], [address] Sodium [Moles/Vol] 142 mmol/L Normal 136-145 [facility] Comment on above: Order Comment: 211.2 Performed By: #### L 500.2500 #### [facility] [address] [place], [address] Urea nitrogen [Mass/Vol] 15 mg/dL Normal 7-18 [facility] Comment on above: Order Comment: 211.2 Performed By: #### L 500.2500 #### [facility] [address] [place], [address] CBC-Complete Blood Cnt No Di ffon 08-27-2024 Erythrocyte distribution width (RBC) [Ratio] 13.7 % Normal 11.6-14.6 [facility] Comment on above: Order Comment: 211.2 Performed By: #### L 500.2500 #### [facility] [address] [place], [address] Hematocrit (Bld) [Volume fraction] 36.7 % Low 37-47 [facility] Comment on above: Order Comment: 211.2 Performed By: #### L 500.2500 #### [facility] [address] [place], [address] Hemoglobin (Bld) [Mass/Vol] 11.7 g/dL Low 12.0-15.0 [facility] Comment on above: Order Comment: 211.2 Performed By: #### L 500.2500 #### [facility] [address] [place], [address] MCH (RBC) [Entitic mass] 29.7 pg Normal 27.0-32.0 [facility] Comment on above: Order Comment: 211.2 Performed By: #### L 500.2500 #### [facility] [address] [place], [address] MCHC (RBC) [Mass/Vol] 31.9 g/dL Low 32-36 [facility] Comment on above: Order Comment: 211.2 Performed By: #### L 500.2500 #### [facility] [address] [place], [address] MCV (RBC) [Entitic vol] 93.1 fL Normal 81-99 [facility] Comment on above: Order Comment: 211.2 Performed By: #### L 500.2500 #### [facility] [address] [place], [address] Platelet mean volume (Bld) [Entitic vol] 12.4 fL High 6.2-12.0 [facility] Comment on above: Order Comment: 211.2 Performed By: #### L 500.2500 #### [facility] [address] [place], [address] Platelets (Bld) [#/Vol] 181 10*3/uL Normal 150-450 [facility] Comment on above: Order Comment: 211.2 Performed By: #### L 500.2500 #### [facility] [address] [place], [address] RBC (Bld) [#/Vol] 3.94 10*6/uL Low 4.2-5.4 [facility] Comment on above: Order Comment: 211.2 Performed By: #### L 500.2500 #### [facility] [address] [place], [address] RDW SD 46.8 fl High 35.1-43.9 [facility] Comment on above: Order Comment: 211.2 Performed By: #### L 500.2500 #### [facility] [address] [place], [address] WBC (Bld) [#/Vol] 6.6 10*3/uL Normal 4.4-11.0 [facility] Comment on above: Order Comment: 211.2 Performed By: #### L 500.2500 #### [facility] [address] [place], [address] CNPAni 08-27-2024 CNPN Telephone (NE39MN) -------- KATHERYN CHINO ([id number]) 1945 F Date Time Provider Department 08/27/24 JAYANT JIMENEZ NE50MN During your visit today, we recorded the following information about you: Mildred Mendez 08/27/2024 3:31 PM Signed OUTSIDE LAB REPORT FACILITY NAME [facility] PHONE/FAX COLLECTION DATE AND TIME: 08/26/24 0459 Uploaded to [facility] Pt scheduled for N/C w/ Sandra Duncan RN 08/28/2024 4:09 PM Signed VPA: 08/27/2024 at 04:55 104: (? to 100) VAP 1000 mg: TID (was increased from 750 mg during recent hospitalization). Previous level ws 94 on 08/06/2024 ======== 08/17/2024 to 08/20/2024 [facility] ======== was patient of Dr. Pereira's last seen 09/01/[address] Jimenez on 09/24/2024: new consult ========= Call placed to [facility] [phone] Jimenez's number given to call back MEGA Dhillon Melissa 08/29/2024 10:26 AM Signed Mima of [facility] returning Nurse call. Please call [phone] Sandra Casey RN 08/29/2024 2:04 PM Signed Spoke with Mima no further seizures to report and no side effect or medication issues to report. She is doing fine at this time. routed for review MEGA Dhillon Kelly, APRN.CNP 08/29/2024 2:26 PM Signed Level reviewed - [...] Status:Closed by SILVIA ROGERS on 08/29/24 Normal [facility] Phenytoin (Dilantin) Levelon 08-27-2024 PHENYTOIN 9.8 mL Low 10.0-20.0 [facility] Comment on above: Order Comment: 211.2 Performed By: #### L 500.2500 #### [facility] [address] [place], [place], [address] Valproic Acid (Depakene) Lev maribell 08-27-2024 VALPROIC ACID 104 ug/mL High 50-100 [facility] Comment on above: Order Comment: 211.2 Performed By: #### L 500.2500 #### [facility] [address] [place], [place], [address] CNDSon 08-20-2024 CNDS HNO ID: [id number] Author: JUAN JOSE HENDERSON DO Service: Hospital [...] No pending results Discharge Disposition Discharge Disposition: Senior Living Facility - Greater than 30 Days Diet [...] call for appointment?: Yes Orville Mendoza DO [phone] [facility] [address] [address] PCP Requested Referral Follow-Up Appointment Follow-up hospitalization With: Your neurologist When: In 3 weeks Patient/Parents to call for appointment?: Yes Additional Provider to Provider Information: Treatment Team: Attending Provider: Juan Jose Henderson DO Primary Service: SHELBY RODRIGUEZ FOLLOW-UP APPOINTMENTS ALREADY SCHEDULED WITH A [facility] PROVIDER: No future appointments. ALLERGIES No [...] as: DEPAK (more content not included)... Normal [facility] THERAPY NTon 08-20-2024 THERAPY NT HNO ID: [id number] Author: ERIN MCDONNELL, PT Service: Physical Therapy Author Type: Physical Therapist Type: Therapy (PT/OT/Speech/Resp) Filed: 08/20/2024 09:58 Note Text: Physical Therapy Evaluation Summary SERVICE DATE: 08/20/2024 SERVICE TIME: 843 to 900 ROOM: [place] [address] PT 6 Clicks Score: 11 DISCHARGE RECOMMENDATIONS [facility] Recommended Discharge Disposition Comments: patient appears to be at functional baseline, reports use of nima steady and in wheelchair at discharge that she self propels. Recommend return to rn long term care care ASSESSMENT Response to Therapy Interventions: Good [...] assist sometimes; feeds herself; has been at [facility] for past 10 years SUBJECTIVE Agreeable to PT session THERAPY DIAGNOSIS No Skilled Need TREATMENT INTERVENTIONS Evaluation $ Evaluation-Moderate (64203) Billed Units: 1 unit Skilled Treatment Time [...] at nima steady which she uses at [facility]. PT assisted to stabilize walker and assisted [...] Services Discontinued: No skilled needs SIGNATURE: Erin Mcdonnell, PT PATIENT NAME: Katheryn [place] DATE: August 20, 2024 TIME: 9:57 AM Normal [facility] THERAPY NT HNO ID: [id number] Author: BARBARA GARCIA OTR/L Service: Occupational Therapy Author Type: Occupational Therapist Type: Therapy (PT/OT/Speech/Resp) Filed: 08/20/2024 09:35 Note Text: Occupational Therapy Evaluation Summary SERVICE DATE: 08/20/2024 SERVICE TIME: 902 to 918 ROOM: [place] [address] OT 6 Clicks Score: 14 DISCHARGE RECOMMENDATIONS [facility] Recommended Discharge Disposition Comments: recommend return to [facility]; pt resident for past 10 years; appears [...] Available: 24-Hour Equipment Owned: Wheelchair- Manual (nima steady) PRIOR FUNCTIONAL LEVEL Required Assistance Assistance Required With: Transfers, Meals, Self Care reports she uses [employer] for transfers into w/c which she self-propels; they complete bathing/dressing but she does assist sometimes; feeds herself; has been at [facility] for past 10 years Baseline Cognition: Oriented to self, Oriented to place, Oriented to time, Oriented to situation SUBJECTIVE agreeable to session; no c/o pain; reports feeling back to her baseline COGNITION Responsiveness: Alert Follows Commands: 1-step Commands THERAPY DIAGNOSIS Reduced mobility-other, Decreased activities of daily living (ADL) TREATMENT INTERVENTIONS Evaluation Skilled Treatment Time (minutes): 16 $ Evaluation - Low (77962) Billed Units: 1 unit TRAINING AND EDUCATION PROVIDED Activity Adaptation/Compensatory Strategies, Bed Mobility, Benefits of In-Hospital Mobility, Functional Mobility Involving ADLs, Grooming Tasks, Orientation, Role of Occupational Therapy, Sitting Balance to Improve Myton with ADLs/Self-Care THERAPEUTIC SKILLS USED Assessment of [...] August 20, 2024 TIME: 9:35 AM Normal [facility] L501.7701on 08-19-2024 Phenytoin [Mass/Vol] 7.0 ug/mL Abnormal 10.0-20.0 [facility] Comment on above: Result Comment: Dete ction Limit = 0.8 <0.8 Indicates None Detected Performed at: [facility] [id number] Forward Air Controller/Air Officer: Haris Peraza PhD, Phone: [phone] Performed By: #### L 3410.9992, L500.2500, L506.1001, L509.1000, L501.2300, L501.5200, L3100.3450 #### [facility] [address] [facility] [place], [address] CBC W Auto Differential pane l (Bld)on 08-18-2024 Basophils (Bld) [#/Vol] 0.07 10*3/uL Normal <0.11 [facility] Comment on above: Order Comment: Speci men Type: BLOOD SPECIMEN Ordering Facility: [facility] Address: [address] [place], [place] [address] [address] Performed By: #### 5 7021-8 #### [facility] CLIA [id number] [address] Basophils/100 WBC (Bld) 0.7 % Normal [facility] Comment on above: Order Comment: Speci men Type: BLOOD SPECIMEN Ordering Facility: [facility] Address: [address] [place] [address] Performed By: #### 5 7021-8 #### [facility] CLIA [id number] [address] Differential cell count method Nom (Bld) Auto Normal [facility] Comment on above: Order Comment: Speci men Type: BLOOD SPECIMEN Ordering Facility: [facility] Address: [address] [place] [address] Performed By: #### 5 7021-8 #### [facility] CLIA [id number] [address] [facility] Eosinophils (Bld) [#/Vol] 10*3/uL Normal <0.46 [facility] Comment on above: Order Comment: Speci men Type: BLOOD SPECIMEN Ordering Facility: [facility] Address: [address] [place] [address] Performed By: #### 5 7021-8 #### [facility] CLIA [id number] [address] Eosinophils/100 WBC (Bld) 0.2 % Normal [facility] Comment on above: Order Comment: Speci men Type: BLOOD SPECIMEN Ordering Facility: [facility] Address: [address] [place] [address] Performed By: #### 5 7021-8 #### [facility] CLIA [id number] [address] Erythrocyte distribution width (RBC) [Ratio] 13.7 % Normal 11.5-15.0 [facility] Comment on above: Order Comment: Speci men Type: BLOOD SPECIMEN Ordering Facility: [facility] Address: [address] [place] [address] Performed By: #### 5 7021-8 #### [facility] CLIA [id number] [address] [facility] Hematocrit (Bld) [Volume fraction] 35.4 % Low 36.0-46.0 [facility] Comment on above: Order Comment: Speci men Type: BLOOD SPECIMEN Ordering Facility: [facility] Address: [address] [place] [address] Performed By: #### 5 7021-8 #### [facility] CLIA [id number] [address] [place] Hemoglobin (Bld) [Mass/Vol] 11.5 g/dL Normal 11.5-15.5 [facility] Comment on above: Order Comment: Speci men Type: BLOOD SPECIMEN Ordering Facility: [facility] Address: [address] [place] [address] Performed By: #### 5 7021-8 #### [facility] CLIA [id number] [address] [place] Immature granulocytes (Bld) [#/Vol] 0.09 10*3/uL Normal <0.10 [facility] Comment on above: Order Comment: Speci men Type: BLOOD SPECIMEN Ordering Facility: [facility] Address: [address] [place] [address] Performed By: #### 5 7021-8 #### [facility] CLIA [id number] [address] [place] Immature granulocytes/100 WBC (Bld) 0.9 % Normal [facility] Comment on above: Order Comment: Speci men Type: BLOOD SPECIMEN Ordering Facility: [facility] Address: [address] [place] [address] Performed By: #### 5 7021-8 #### [facility] CLIA [id number] [address] [place] Lymphocytes (Bld) [#/Vol] 3.08 10*3/uL Normal 1.00-4.00 [facility] Comment on above: Order Comment: Speci men Type: BLOOD SPECIMEN Ordering Facility: [facility] Address: [address] [place] [address] Performed By: #### 5 7021-8 #### [facility] CLIA [id number] [address] Lymphocytes/100 WBC (Bld) 31.9 % Normal [facility] Comment on above: Order Comment: Speci men Type: BLOOD SPECIMEN Ordering Facility: [facility] Address: [address] [place] [address] Performed By: #### 5 7021-8 #### [facility] CLIA [id number] [address] MCH (RBC) [Entitic mass] 29.9 pg Normal 26.0-34.0 [facility] Comment on above: Order Comment: Speci men Type: BLOOD SPECIMEN Ordering Facility: [facility] Address: [address] [place] [address] Performed By: #### 5 7021-8 #### [facility] CLIA [id number] [address] MCHC (RBC) [Mass/Vol] 32.5 g/dL Normal 30.5-36.0 [facility] Comment on above: Order Comment: Speci men Type: BLOOD SPECIMEN Ordering Facility: [facility] Address: [address] [place] [address] Performed By: #### 5 7021-8 #### [facility] CLIA [id number] [address] MCV (RBC) [Entitic vol] 92.2 fL Normal 80.0-100.0 [facility] Comment on above: Order Comment: Speci men Type: BLOOD SPECIMEN Ordering Facility: [facility] Address: [address] [place] [address] Performed By: #### 5 7021-8 #### [facility] CLIA [id number] [address] Monocytes (Bld) [#/Vol] 1.02 10*3/uL High <0.87 [facility] Comment on above: Order Comment: Speci men Type: BLOOD SPECIMEN Ordering Facility: [facility] Address: [address] [place] [address] Performed By: #### 5 7021-8 #### [facility] CLIA [id number] [address] Monocytes/100 WBC (Bld) 10.5 % Normal [facility] Comment on above: Order Comment: Speci men Type: BLOOD SPECIMEN Ordering Facility: [facility] Address: [address] [place] [address] Performed By: #### 5 7021-8 #### [facility] CLIA [id number] [address] [place] Neutrophils (Bld) [#/Vol] 5.39 10*3/uL Normal 1.45-7.50 [facility] Comment on above: Order Comment: Speci men Type: BLOOD SPECIMEN Ordering Facility: [facility] Address: [address] [place] [address] Performed By: #### 5 7021-8 #### [facility] CLIA [id number] [address] Neutrophils/100 WBC (Bld) 55.8 % Normal [facility] Comment on above: Order Comment: Speci men Type: BLOOD SPECIMEN Ordering Facility: [facility] Address: [address] [place] [address] Performed By: #### 5 7021-8 #### [facility] CLIA [id number] [address] [place] Nucleated RBC (Bld) [#/Vol] 10*3/uL Normal <0.01 [facility] Comment on above: Order Comment: Speci men Type: BLOOD SPECIMEN Ordering Facility: [facility] Address: [address] [place] [address] Performed By: #### 5 7021-8 #### [facility] CLIA [id number] [address] [place] Nucleated RBC/100 WBC (Bld) [Ratio] 0.0 /100 WBC Normal [facility] Comment on above: Order Comment: Speci men Type: BLOOD SPECIMEN Ordering Facility: [facility] Address: [address] [place] [address] Performed By: #### 5 7021-8 #### [facility] CLIA [id number] [address] [place] Platelet mean volume (Bld) [Entitic vol] 11.1 fL Normal 9.0-12.7 [facility] Comment on above: Order Comment: Speci men Type: BLOOD SPECIMEN Ordering Facility: [facility] Address: [address] [place] [address] Performed By: #### 5 7021-8 #### [facility] CLIA [id number] [address] [place] Platelets (Bld) [#/Vol] 185 10*3/uL Normal 150-400 [facility] Comment on above: Order Comment: Speci men Type: BLOOD SPECIMEN Ordering Facility: [facility] Address: [address] [place] [address] Performed By: #### 5 7021-8 #### [facility] CLIA [id number] [address] [place] RBC (Bld) [#/Vol] 3.84 10*6/uL Low 3.90-5.20 [facility] Comment on above: Order Comment: Speci men Type: BLOOD SPECIMEN Ordering Facility: [facility] Address: [address] [place] [address] Performed By: #### 5 7021-8 #### [facility] CLIA [id number] [address] [place] WBC (Bld) [#/Vol] 9.67 10*3/uL Normal 3.70-11.00 [facility] Comment on above: Order Comment: Speci men Type: BLOOD SPECIMEN Ordering Facility: [facility] Address: [address] [place] [address] Performed By: #### 5 7021-8 #### [facility] CLIA [id number] [address] [place] [address] [facility] CONSULTon 08-18-2024 CONSULT HNO ID: [id number] Author: KEYONA SANTANA MD Service: Neurology General [...] for status epilepticus pt was transferred to [facility] for increased monitoring. Today pt reports [...] against grav (more content not included)... Normal [facility] CONSULT HNO ID: [id number] Author: CHASE ROBERTSON APRN.SMALL CRAFT OPERATOR Service: Palliative Care Author Type: Nurse Practitioner Type: Consults Filed: 08/18/2024 12:36 Note Text: INPATIENT PALLIATIVE MEDICINE NOTE [facility] Katheryn [phone] * Palliative Medicine Diagnoses: Seizures, MDD, dementia, [...] MDD, HTN, and seizures who presented from [place] with 10-15 minutes of grand mal seizures. Patient is from [place]. HCPOA 1 is brother Danny, 2 Richard, [...] prescriptions were reported. 08/18/2024 by Chase Robertson APRN.SMALL CRAFT OPERATOR PAST MEDICAL HISTORY Diagnosis Date High blood [...] negative. Palliative Assessment Review of Symptoms (Modified [place] Symptom Assessment): Pain: None Dyspnea: None Nausea: [...] output data in the 24 hours ending 08/18/24827 MEDICATIONS REVIEWED: Yes Current Facility-Administered Medications Medication [...] MIN PRN (more content not included)... Normal [facility] Comprehensive metabolic 2000 panelon 08-18-2024 Albumin [Mass/Vol] 4.3 g/dL Normal 3.9-4.9 [facility] Comment on above: Order Comment: Specsandy lobato Type: BLOOD SPECIMEN Ordering Facility: [facility] Address: [address] [place] [address] Performed By: #### 1 9623-9, 12112-2 #### [facility] CLIA [id number] [address] STATES OF [facility] ALP [Catalytic activity/Vol] 115 U/L Normal 34-123 [facility] Comment on above: Order Comment: Ina lobato Type: BLOOD SPECIMEN Ordering Facility: [facility] Address: [address] [place] [address] Performed By: #### 1 5923-9, 47443-4 #### [facility] CLIA [id number] [address] OF [facility] ALT With P-5'-P [Catalytic activity/Vol] 16 U/L Normal 7-38 [facility] Comment on above: Order Comment: Speci men Type: BLOOD SPECIMEN Ordering Facility: [facility] Address: [address] [place] [address] Performed By: #### 1 9123-9, 89619-6 #### [facility] CLIA [id number] [address] [place] Anion gap [Moles/Vol] 13 mmol/L Normal 8-15 [facility] Comment on above: Order Comment: Speci men Type: BLOOD SPECIMEN Ordering Facility: [facility] Address: [address] [place] [address] Performed By: #### 1 9123-9, 85732-5 #### [facility] CLIA [id number] [address] AST With P-5'-P [Catalytic activity/Vol] 30 U/L Normal 13-35 [facility] Comment on above: Order Comment: Speci men Type: BLOOD SPECIMEN Ordering Facility: [facility] Address: [address] [place] [address] Performed By: #### 1 9123-9, 98432-6 #### [facility] CLIA [id number] [address] [place] Bilirubin [Mass/Vol] 0.4 mg/dL Normal 0.2-1.3 [facility] Comment on above: Order Comment: Speci men Type: BLOOD SPECIMEN Ordering Facility: [facility] Address: [address] [place] [address] Performed By: #### 1 9123-9, 29897-7 #### [facility] CLIA [id number] [address] [place] Calcium [Mass/Vol] 9.3 mg/dL Normal 8.5-10.2 [facility] Comment on above: Order Comment: Speci men Type: BLOOD SPECIMEN Ordering Facility: [facility] Address: [address] [place] [address] Performed By: #### 1 9123-9, 38819-6 #### [facility] CLIA [id number] [address] [place] Chloride [Moles/Vol] 103 mmol/L Normal 98-107 [facility] Comment on above: Order Comment: Speci men Type: BLOOD SPECIMEN Ordering Facility: [facility] Address: [address] [place] [address] Performed By: #### 1 9123-9, 04360-6 #### [facility] CLIA [id number] [address] [place] CO2 [Moles/Vol] 25 mmol/L Normal 22-30 [facility] Comment on above: Order Comment: Speci men Type: BLOOD SPECIMEN Ordering Facility: [facility] Address: [address] [place] [address] Performed By: #### 1 9123-9, 75029-5 #### [facility] CLIA [id number] [address] [place] Creatinine [Mass/Vol] 0.81 mg/dL Normal 0.58-0.96 [facility] Comment on above: Order Comment: Speci men Type: BLOOD SPECIMEN Ordering Facility: [facility] Address: [address] [place] [address] Performed By: #### 1 9123-9, 56030-0 #### [facility] CLIA [id number] [address] Creatinine and Glomerular filtration rate.predicted panel (S/P/Bld) 75 mL/min/1.73m??? Normal >=60 [facility] Comment on above: Order Comment: Speci men Type: BLOOD SPECIMEN Ordering Facility: [facility] Address: [address] [place] [address] Result Comment: Yesika mated Glomerular Filtration Rate [...] reflect actual GFR. Performed By: #### 1 23-9, #### [facility] CLIA [id number] 1 [place] [address] [place] Glucose [Mass/Vol] 84 mg/dL Normal 74-99 [facility] Comment on above: Order Comment: Ina lobato Type: BLOOD SPECIMEN Ordering Facility: [facility] Address: [address] [place] [address] Result Comment: The [place] [employer] (ADA) provides guidance for cutoff [...] Standards of Medical Care in Diabetes 2016, [place] [employer]. Diabetes Care. 2016.39(Suppl 1). Performed By: #### 1 23-9, #### [facility] CLIA [id number] 1 [place] [address] [place] Potassium [Moles/Vol] 4.4 mmol/L Normal 3.7-5.1 [facility] Comment on above: Order Comment: Ina lobato Type: BLOOD SPECIMEN Ordering Facility: [facility] Address: [address] [place] [address] Performed By: #### 1 239, #### [facility] CLIA [id number] 1 [place] [address] [place] Protein [Mass/Vol] 7.4 g/dL Normal 6.3-8.0 [facility] Comment on above: Order Comment: Speci men Type: BLOOD SPECIMEN Ordering Facility: [facility] Address: [address] [place] [address] Performed By: #### 1 9123-9, 25722-0 #### [facility] CLIA [id number] 1 [place] [address] [place] Sodium [Moles/Vol] 141 mmol/L Normal 136-144 [facility] Comment on above: Order Comment: Speci men Type: BLOOD SPECIMEN Ordering Facility: [facility] Address: [address] [place] [address] Performed By: #### 1 9123-9, 23988-3 #### [facility] CLIA [id number] 1 [place] [address] [place] Urea nitrogen [Mass/Vol] 19 mg/dL Normal 7-21 [facility] Comment on above: Order Comment: Speci men Type: BLOOD SPECIMEN Ordering Facility: [facility] Address: [address] [place] [address] Performed By: #### 1 23-9, #### [facility] CLIA [id number] 1 [place] [address] [place] Magnesium SerPl-mCncon 08-18 Magnesium [Mass/Vol] 1.9 mg/dL Normal 1.7-2.3 [facility] Comment on above: Order Comment: Speci men Type: BLOOD SPECIMEN Ordering Facility: [facility] Address: [address] [place] [address] Performed By: #### 1 23-9, 76171-4 #### [facility] CLIA [id number] 1 [place] [address] [place] Phenytoin SerPl-mCncon 08-18 Phenytoin [Mass/Vol] 6.8 ug/mL Low 10.0-20.0 [facility] Comment on above: Order Comment: Speci men Type: BLOOD SPECIMEN Ordering Facility: [facility] Address: [address] [place] [address] Result Comment: Refe rence ranges and high/low indicator flags are provided as general guidelines only. The treating physician must determine appropriate target levels/dosing based on the specific clinical situation. Performed By: #### 3 968-5 #### [facility] CLIA [id number] [address] Urinalysis complete panel (U )on 08-18-2024 Bilirubin Ql (U) Negative Normal Negative [facility] Comment on above: Order Comment: Speci men Type: URINE SPECIMEN Ordering Facility: [facility] Address: [address] [place] [address] Performed By: #### 2 4356-8 #### [facility] CLIA [id number] [address] Clarity (Unsp spec) Clear Normal Clear [facility] Comment on above: Order Comment: Speci men Type: URINE SPECIMEN Ordering Facility: [facility] Address: [address] [place] [address] Performed By: #### 2 4356-8 #### [facility] CLIA [id number] [address] Color (U) Yellow Normal yellow [facility] Comment on above: Order Comment: Speci men Type: URINE SPECIMEN Ordering Facility: [facility] Address: [address] [place] [address] Performed By: #### 2 4356-8 #### [facility] CLIA [id number] [address] Epithelial cells LM.HPF (Urine sed) [#/Area] Few Normal [facility] Comment on above: Order Comment: Speci men Type: URINE SPECIMEN Ordering Facility: [facility] Address: [address] [place] [address] Performed By: #### 2 4356-8 #### [facility] CLIA [id number] [address] Glucose Test strip (U) [Mass/Vol] Negative Normal Trace, Negative [facility] Comment on above: Order Comment: Speci men Type: URINE SPECIMEN Ordering Facility: [facility] Address: [address] [place] [address] Performed By: #### 2 4356-8 #### [facility] CLIA [id number] [address] OF [place] Hemoglobin Ql (U) Negative Normal Negative, Trace [facility] Comment on above: Order Comment: Speci men Type: URINE SPECIMEN Ordering Facility: [facility] Address: [facility] [place] [address] Performed By: #### 2 4356-8 #### [facility] CLIA [id number] [address] OF [place] Ketones Ql (U) Negative Normal Negative, Trace [facility] Comment on above: Order Comment: Speci men Type: URINE SPECIMEN Ordering Facility: [facility] Address: [address] [place] [address] Performed By: #### 2 4356-8 #### [facility] CLIA [id number] [address] Leukocyte esterase Test strip Ql (U) 75 James/uL Abnormal Negative, 25 James/uL [facility] Comment on above: Order Comment: Speci men Type: URINE SPECIMEN Ordering Facility: [facility] Address: [address] [place] [address] Performed By: #### 2 4356-8 #### [facility] CLIA [id number] [address] Nitrite Ql (U) Negative Normal Negative [facility] Comment on above: Order Comment: Speci men Type: URINE SPECIMEN Ordering Facility: [facility] Address: [address] [place] [address] Performed By: #### 2 4356-8 #### [facility] CLIA [id number] [address] OF [place] pH (U) 6.0 [pH] Normal 5.0-8.0 [facility] Comment on above: Order Comment: Speci men Type: URINE SPECIMEN Ordering Facility: [facility] Address: [address] [place] [address] Performed By: #### 2 4356-8 #### [facility] CLIA [id number] [address] Protein (U) [Mass/Vol] Trace Normal Trace , Negative [facility] Comment on above: Order Comment: Speci men Type: URINE SPECIMEN Ordering Facility: [facility] Address: [address] [place] [address] Performed By: #### 2 4356-8 #### [facility] CLIA [id number] [address] RBC LM.HPF (Urine sed) [#/Area] 0-3 /HPF Normal 0-3 /HPF [facility] Comment on above: Order Comment: Speci men Type: URINE SPECIMEN Ordering Facility: [facility] Address: [address] [place] [address] Performed By: #### 2 4356-8 #### [facility] CLIA [id number] [address] Specific gravity (U) [Rel density] 1.029 Normal 1.005-1.03 0 [facility] Comment on above: Order Comment: Speci men Type: URINE SPECIMEN Ordering Facility: [facility] Address: [address] [place] [address] Performed By: #### 2 4356-8 #### [facility] CLIA [id number] [address] Urobilinogen Ql (U) Normal Normal Normal [facility] Comment on above: Order Comment: Speci men Type: URINE SPECIMEN Ordering Facility: [facility] Address: [address] [place] [address] Performed By: #### 2 4356-8 #### [facility] CLIA [id number] [address] WBC LM.HPF (Urine sed) [#/Area] 6-10 /HPF Abnormal 0-5 /HPF [facility] Comment on above: Order Comment: Speci men Type: URINE SPECIMEN Ordering Facility: [facility] Address: [address] [place] [id number] Performed By: #### 2 4356-8 #### [facility] CLIA [id number] 1 [place] [address] [place] Valproate Free SerPl-mCncon 08-18-2024 Valproate Free [Mass/Vol] 1.8 ug/mL Low 4.0-30.0 [facility] Comment on above: Order Comment: Speci men Type: BLOOD SPECIMEN Ordering Facility: [facility] Address: [address] [place] [address] Result Comment: Refe rence ranges and high/low indicator flags are provided as general guidelines only. The treating physician must determine appropriate target levels/dosing based on the specific clinical situation. This test was developed, and its performance characteristics determined by the [facility] Department of Pathology and Laboratory Medicine. It has not been cleared or approved by the FDA. The [facility] Department of Pathology and Laboratory Medicine is regulated under CLIA as qualified to perform high-complexity testing. This test is used for clinical purposes. It should not be regarded as investigational or for research. Performed By: #### 4 087-3 #### [facility] CLIA [id number] [address] [place] [address] [place] [address] [place] Basic Metabolic Profile (BMP )on 08-17-2024 BUN/CRE 29.4 RATIO High 10-20 [facility] Comment on above: Performed By: #### L 3410.9992, L500.2500, L506.1001, L509.1000, L501.2300, L501.5200, L3100.3450 #### [facility] [address] [place], [address] CA,Total 8.8 mg/dL Normal 8.5-10.1 [facility] Comment on above: Performed By: #### L 3410.9992, L500.2500, L506.1001, L509.1000, L501.2300, L501.5200, L3100.3450 #### [facility] [address] [place], [address] Chloride [Moles/Vol] 110 mmol/L High 98-107 [facility] Comment on above: Performed By: #### L 3410.9992, L500.2500, L506.1001, L509.1000, L501.2300, L501.5200, L3100.3450 #### [facility] [address] [place], [address] CO2 [Moles/Vol] 25.0 mmol/L Normal 21.0-32.0 [facility] Comment on above: Performed By: #### L 3410.9992, L500.2500, L506.1001, L509.1000, L501.2300, L501.5200, L3100.3450 #### [facility] [address] [place], [place], [id number] (052) Creatinine [Mass/Vol] 0.75 mg/dL Normal 0.55-1.02 [facility] Comment on above: Result Comment: The validity of the calculated GFR GFRAA in patients over 70 years has not been determined. Clinical correlation is essential. Performed By: #### L 3410.9992, L500.2500, L506.1001, L509.1000, L501.2300, L501.5200, L3100.3450 #### [facility] [address] [place], [place], [id number] (219) ECRCL 63.42 ml/min Normal [facility] Comment on above: Performed By: #### L 3410.9992, L500.2500, L506.1001, L509.1000, L501.2300, L501.5200, L3100.3450 #### [facility] [address] [place], [address] EST GFR - AA 97 mL/min Normal >60 [facility] Comment on above: Result Comment: Afri can [place] GFR Calc Performed By: #### L 3410.9992, L500.2500, L506.1001, L509.1000, L501.2300, L501.5200, L3100.3450 #### [facility] [address] [place], [address] GAP 7 Normal 5-15 [facility] Comment on above: Performed By: #### L 3410.9992, L500.2500, L506.1001, L509.1000, L501.2300, L501.5200, L3100.3450 #### [facility] [address] [place], [address] GFR/1.73 sq M.predicted among non-blacks MDRD (S/P/Bld) [Vol rate/Area] 80 mL/min/{1.73_m2} Normal >60 [facility] Comment on above: Result Comment: Non- GFR Calc Performed By: #### L 3410.9992, L500.2500, L506.1001, L509.1000, L501.2300, L501.5200, L3100.3450 #### [facility] [address] [place], [address] Glucose [Mass/Vol] 102 mg/dL Normal 74-106 [facility] Comment on above: Result Comment: Fast ing Glucose result from 100 to 125 mg/dL suggests IMPAIRED HOMEOSTASIS per A.D.A. criteria. Performed By: #### L 3410.9992, L500.2500, L506.1001, L509.1000, L501.2300, L501.5200, L3100.3450 #### [facility] [address] [place], [address] Potassium [Moles/Vol] 4.1 mmol/L Normal 3.5-5.1 [facility] Comment on above: Performed By: #### L 3410.9992, L500.2500, L506.1001, L509.1000, L501.2300, L501.5200, L3100.3450 #### [facility] [address] [place], [address] Sodium [Moles/Vol] 142 mmol/L Normal 136-145 [facility] Comment on above: Performed By: #### L 3410.9992, L500.2500, L506.1001, L509.1000, L501.2300, L501.5200, L3100.3450 #### [facility] [address] [place], [address] Urea nitrogen [Mass/Vol] 22 mg/dL High 7-18 [facility] Comment on above: Performed By: #### L 3410.9992, L500.2500, L506.1001, L509.1000, L501.2300, L501.5200, L3100.3450 #### [facility] [address] [place], [address] Brain/Head without Contrasto n 08-17-2024 Brain/Head without Contrast [facility] [address] [facility] [place] [address] Brain/Head without Contrast MR#: [id number] Acct: [id number] Name: KATHERYN CHINO Rep #: [id number] : 1945 F 79 From: Parag Servin MD PCP: Ron SESAY, Todd Status: [facility] Study: Brain/Head without Contrast Date of Exam: 01/05 Exam# [id number] Ordering Dr: Hayes Nicholson DO [id number] EXAM: CT HEAD WITHOUT INTRAVENOUS CONTRAST CLINICAL [...] Todd Velasquez MD; Dr. Hayes Nicholson DO Application Packaging Specialist: Signed Normal [facility] CBC W/Diff, Automatedon 11-0 -2023 Absolute Lymph 2.98 X10 3/uL Normal 0.83-4.51 [facility] Comment on above: Performed By: #### L 3410.9992, L500.2500, L506.1001, L509.1000, L501.2300, L501.5200, L3100.3450 #### [facility] [address] [place], [address] Absolute Neut 4.1 X10 3/uL Normal 2.0-7.7 [facility] Comment on above: Performed By: #### L 3410.9992, L500.2500, L506.1001, L509.1000, L501.2300, L501.5200, L3100.3450 #### [facility] [address] [place], [address] Basophils/100 WBC (Bld) 0.9 % Normal 0-1 [facility] Comment on above: Performed By: #### L 3410.9992, L500.2500, L506.1001, L509.1000, L501.2300, L501.5200, L3100.3450 #### [facility] [address] [place], [address] Eosinophils/100 WBC (Bld) 0.7 % Normal 0-5 [facility] Comment on above: Performed By: #### L 3410.9992, L500.2500, L506.1001, L509.1000, L501.2300, L501.5200, L3100.3450 #### [facility] [address] [place], [address] Erythrocyte distribution width (RBC) [Ratio] 13.6 % Normal 11.6-14.6 [facility] Comment on above: Performed By: #### L 3410.9992, L500.2500, L506.1001, L509.1000, L501.2300, L501.5200, L3100.3450 #### [facility] [address] [place], [address] Hematocrit (Bld) [Volume fraction] 38.5 % Normal 37-47 [facility] Comment on above: Performed By: #### L 3410.9992, L500.2500, L506.1001, L509.1000, L501.2300, L501.5200, L3100.3450 #### [facility] [address], [address] Hemoglobin (Bld) [Mass/Vol] 12.5 g/dL Normal 12.0-15.0 [facility] Comment on above: Performed By: #### L 3410.9992, L500.2500, L506.1001, L509.1000, L501.2300, L501.5200, L3100.3450 #### [facility] [address] [place], [address] IG% 0.700 Normal 0.0-0.9 [facility] Comment on above: Result Comment: IG% - Immature Granulocytes (promyelocytes, myelocytes and metamyelocytes) > 1% indicates that a LEFT SHIFT is Present. Performed By: #### L 3410.9992, L500.2500, L506.1001, L509.1000, L501.2300, L501.5200, L3100.3450 #### [facility] [address] [place], [address] Lymphocytes/100 WBC (Bld) 37.2 % Normal 19-41 [facility] Comment on above: Performed By: #### L 3410.9992, L500.2500, L506.1001, L509.1000, L501.2300, L501.5200, L3100.3450 #### [facility] [address] [place], [address] MCH (RBC) [Entitic mass] 29.6 pg Normal 27.0-32.0 [facility] Comment on above: Performed By: #### L 3410.9992, L500.2500, L506.1001, L509.1000, L501.2300, L501.5200, L3100.3450 #### [facility] [address] [place], [address] MCHC (RBC) [Mass/Vol] 32.5 g/dL Normal 32-36 [facility] Comment on above: Performed By: #### L 3410.9992, L500.2500, L506.1001, L509.1000, L501.2300, L501.5200, L3100.3450 #### [facility] [address] [place], [address] MCV (RBC) [Entitic vol] 91.0 fL Normal 81-99 [facility] Comment on above: Performed By: #### L 3410.9992, L500.2500, L506.1001, L509.1000, L501.2300, L501.5200, L3100.3450 #### [facility] [address] [place], [address] Monocytes/100 WBC (Bld) 9.5 % Normal 0-10 [facility] Comment on above: Performed By: #### L 3410.9992, L500.2500, L506.1001, L509.1000, L501.2300, L501.5200, L3100.3450 #### [facility] [address] [place], [address] Neutrophils/100 WBC (Bld) 51.0 % Normal 47-70 [facility] Comment on above: Performed By: #### L 3410.9992, L500.2500, L506.1001, L509.1000, L501.2300, L501.5200, L3100.3450 #### [facility] [address] [place], [address] Nucleated RBC (Bld) [#/Vol] 0 10*3/uL Normal 0-5 [facility] Comment on above: Performed By: #### L 3410.9992, L500.2500, L506.1001, L509.1000, L501.2300, L501.5200, L3100.3450 #### [facility] [address] [place], [address] Platelet mean volume (Bld) [Entitic vol] 11.1 fL Normal 6.2-12.0 [facility] Comment on above: Performed By: #### L 3410.9992, L500.2500, L506.1001, L509.1000, L501.2300, L501.5200, L3100.3450 #### [facility] [address] [place], [address] Platelets (Bld) [#/Vol] 197 10*3/uL Normal 150-450 [facility] Comment on above: Performed By: #### L 3410.9992, L500.2500, L506.1001, L509.1000, L501.2300, L501.5200, L3100.3450 #### [facility] [address] [place], [address] RBC (Bld) [#/Vol] 4.23 10*6/uL Normal 4.2-5.4 [facility] Comment on above: Performed By: #### L 3410.9992, L500.2500, L506.1001, L509.1000, L501.2300, L501.5200, L3100.3450 #### [facility] [address] [place], [address] RDW SD 45.6 fl High 35.1-43.9 [facility] Comment on above: Performed By: #### L 3410.9992, L500.2500, L506.1001, L509.1000, L501.2300, L501.5200, L3100.3450 #### [facility] [address] [place], [address] WBC (Bld) [#/Vol] 8.0 10*3/uL Normal 4.4-11.0 [facility] Comment on above: Performed By: #### L 3410.9992, L500.2500, L506.1001, L509.1000, L501.2300, L501.5200, L3100.3450 #### [facility] [address] [place], [place], [id number] CNPAni 08-17-2024 CNPN Telephone (NEURTE) -------- KATHERYN CHINO ([id number]) 1945 F Date Time Provider Department 08/17/24 FRANCISCO JAVIER SALAZAR During your visit today, we recorded the following information about you: Francisco Javier Saalzar MD 08/17/2024 11:50 AM Signed I received a call from the emergency room at [facility] regarding a patient of Dr. Nava. Patient [...] free 3 years. Visit with epileptologist at [facility] and long EEG are indicated at this time due to rare seizures. Events on 08/17/2024 Patient had a 15-minute seizure in the fpc. She had not had any seizures recently. [...] Patient has not been seen in the [facility] system since 2019. At the minimum she needs an evaluation to reassess her epilepsy. Francisco Javier Salazar MD Neurology. (Telemedicine neurologist) Allergies As of Date: 08/17/2024 (No Known Allergies) Date Reviewed: 09/01/2019 Reviewed by: Katalina Al ([facility]) - Fully Assessed Prescriptions as of [...] losartan potassium (more content not included)... Normal [facility] Chest 1 View (Portable)on Chest 1 View (Portable) [facility] Services [address], [place] [address] Chest 1 View (Portable) MR#: [id number] Acct: [id number] Name: KATHERYN CHINO Rep #: [id number] : 1945 F 79 From: Rudy Jimenez PCP: Ron SESAY, Todd Status: [facility] Study: Chest 1 View (Portable) Date of Exam: 08/17/24 Exam# [id number] Ordering Dr: Ariel Yang DO [id number] EXAM: XR CHEST, 1 VIEW CLINICAL INDICATION: [...] CC: Todd Velasquez MD; Ariel Yang DO Application Packaging Specialist: Signed Normal [facility] Emergency Department Summary on 08-17-2024 Emergency Department Summary [facility] Medical Records Department [address] [place] [address] Emergency Department Summary 08/17/24 MR#: [id number] Acct: [id number] Name: KATHERYN CHINO Rep #: [id number] : 1945 79 From: Ariel Yang DO PCP: Ron SESAY, Todd Status:REG ER Location: ED ADDENDUM by Dr. Hayes Nicholson DO on 08/17/24 at 1241 Update: 1239 hrs.: Patient's ride back to [facility] arrived. The patient then entered a generalized seizure again. This required a total of 2 mg of Ativan to abort. Patient did require some supplemental oxygen. 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 I spoke with on-call neurology through [facility]. Recommended giving a gram of Keppra. We spoke with the patient's brother who is the POA. He states that this is atypical for the patient's seizures as typically they are short and she has a postictal timeframe and then achieves baseline but does not typically receives. We do not have in-house neurology/EEG today. Recommendation is for transfer. I spoke with [facility] And the patient has been accepted. [...] lasting 8 to 10 minutes at the [facility] where she was "unresponsive and foaming at the mouth". She states she does not remember any event other than the people at the [facility] telling her this. She states she has been feeling fine otherwise and she has been taking her medications as directed as she has been getting them from the [facility] staff. However based on the reported breakthrough seizure that occurred this morning she was sent in for further evaluation [facility] Medical History Dysphagia, oropharyngeal phase Generalized [...] mg PO (more content not included)... 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 Normal [facility] NURSING PROGon 08-17-2024 NURSING PROG HNO ID: [id number] Author: MCKINLEY DUNN, MEGA Service: Nursing Author Type: Registered Nurse Type: Nursing Progress Note Filed: 08/18/2024 01:29 Note Text: Other: Pt admitted from [place] ED via ems. Pt arouses to name called. Pt is not speaking. Pt siderails padded. Call light in reach. Bed low and alarm activated. Vss. No distress observed at this time. Normal [facility] Urinalysis, Completeon 08-17 EPI,SQUAMOUS 0-5 SEEN Normal 5-10 [facility] Comment on above: Order Comment: MEGHAN CTOR TO SPECIFY Performed By: #### L 3410.9992, L500.2500, L506.1001, L509.1000, L501.2300, L501.5200, L3100.3450 #### [facility] [address] [place], [address] BACTERIA 0 SEEN Normal None Seen [facility] Comment on above: Order Comment: MEGHAN CTOR TO SPECIFY Performed By: #### L 3410.9992, L500.2500, L506.1001, L509.1000, L501.2300, L501.5200, L3100.3450 #### [facility] [address] [place], [address] Mucus Ql (Urine sed) 0 SEEN Normal [facility] Comment on above: Order Comment: MEGHAN CTOR TO SPECIFY Performed By: #### L 3410.9992, L500.2500, L506.1001, L509.1000, L501.2300, L501.5200, L3100.3450 #### [facility] [address] [place], [address] RBC 0 SEEN Normal 0-5 [facility] Comment on above: Order Comment: MEGHAN CTOR TO SPECIFY Performed By: #### L 3410.9992, L500.2500, L506.1001, L509.1000, L501.2300, L501.5200, L3100.3450 #### [facility] [address] [place], [address] WBC 0 SEEN Normal 0-5 [facility] Comment on above: Order Comment: COLLE CTOR TO SPECIFY Performed By: #### L 3410.9992, L500.2500, L506.1001, L509.1000, L501.2300, L501.5200, L3100.3450 #### [facility] [address] [place], [address] Valproic Acid (Depakene) Matt maribell 08-17-2024 VALPROIC ACID 101 ug/mL High 50-100 [facility] Comment on above: Performed By: #### L 3410.9992, L500.2500, L506.1001, L509.1000, L501.2300, L501.5200, L3100.3450 #### [facility] [address] [place], [address] Basic Metabolic Profile (BMP )on 08-14-2024 BUN/CRE 20.9 RATIO High 08-03 [facility] Comment on above: Order Comment: 211.2 Performed By: #### L 500.2500 #### [facility] [address] [place], [address] CA,Total 9.1 mg/dL Normal 8.5-10.1 [facility] Comment on above: Order Comment: 211.2 Performed By: #### L 500.2500 #### [facility] [address] [place], [address] Chloride [Moles/Vol] 109 mmol/L High 98-107 [facility] Comment on above: Order Comment: 211.2 Performed By: #### L 500.2500 #### [facility] [address] [place], [address] CO2 [Moles/Vol] 25.0 mmol/L Normal 21.0-32.0 [facility] Comment on above: Order Comment: 211.2 Performed By: #### L 500.2500 #### [facility] [address] [place], [address] Creatinine [Mass/Vol] 0.81 mg/dL Normal 0.55-1.02 [facility] Comment on above: Order Comment: 211.2 Result Comment: The validity of the calculated GFR GFRAA in patients over 70 years has not been determined. Clinical correlation is essential. Performed By: #### L 500.2500 #### [facility] [address] [place], [address] EST GFR - AA 88 mL/min Normal >60 [facility] Comment on above: Order Comment: 211.2 Result Comment: Afri can Turkmen GFR Calc Performed By: #### L 500.2500 #### [facility] [address] [place], [address] GAP 6 Normal 5-15 [facility] Comment on above: Order Comment: 211.2 Performed By: #### L 500.2500 #### [facility] [address] [place], [address] GFR/1.73 sq M.predicted among non-blacks MDRD (S/P/Bld) [Vol rate/Area] 73 mL/min/{1.73_m2} Normal >60 [facility] Comment on above: Order Comment: 211.2 Result Comment: Non- GFR Calc Performed By: #### L 500.2500 #### [facility] [address] [place], [address] Glucose [Mass/Vol] 93 mg/dL Normal 74-106 [facility] Comment on above: Order Comment: 211.2 Performed By: #### L 500.2500 #### [facility] [address] [place], [address] Potassium [Moles/Vol] 4.4 mmol/L Normal 3.5-5.1 [facility] Comment on above: Order Comment: 211.2 Performed By: #### L 500.2500 #### [facility] [address] [place], [address] Sodium [Moles/Vol] 140 mmol/L Normal 136-145 [facility] Comment on above: Order Comment: 211.2 Performed By: #### L 500.2500 #### [facility] [address] [facility] [place], [address] Urea nitrogen [Mass/Vol] 17 mg/dL Normal 7-18 [facility] Comment on above: Order Comment: 211.2 Performed By: #### L 500.2500 #### [facility] [address] [place], [address] CBC-Complete Blood Cnt No Di ffon 08-14-2024 Erythrocyte distribution width (RBC) [Ratio] 13.7 % Normal 11.6-14.6 [facility] Comment on above: Order Comment: 211.2 Performed By: #### L 500.2500 #### [facility] [address] [place], [address] Hematocrit (Bld) [Volume fraction] 36.1 % Low 37-47 [facility] Comment on above: Order Comment: 211.2 Performed By: #### L 500.2500 #### [facility] [address] [place], [address] Hemoglobin (Bld) [Mass/Vol] 11.9 g/dL Low 12.0-15.0 [facility] Comment on above: Order Comment: 211.2 Performed By: #### L 500.2500 #### [facility] [address] [place], [address] MCH (RBC) [Entitic mass] 30.4 pg Normal 27.0-32.0 [facility] Comment on above: Order Comment: 211.2 Performed By: #### L 500.2500 #### [facility] [address] [place], [address] MCHC (RBC) [Mass/Vol] 33.0 g/dL Normal 32-36 [facility] Comment on above: Order Comment: 211.2 Performed By: #### L 500.2500 #### [facility] [address] [place], [address] MCV (RBC) [Entitic vol] 92.3 fL Normal 81-99 [facility] Comment on above: Order Comment: 211.2 Performed By: #### L 500.2500 #### [facility] [address] [place], [address] Platelet mean volume (Bld) [Entitic vol] 11.8 fL Normal 6.2-12.0 [facility] Comment on above: Order Comment: 211.2 Performed By: #### L 500.2500 #### [facility] [address] [place], [address] Platelets (Bld) [#/Vol] 168 10*3/uL Normal 150-450 [facility] Comment on above: Order Comment: 211.2 Performed By: #### L 500.2500 #### [facility] [address] [place], [address] RBC (Bld) [#/Vol] 3.91 10*6/uL Low 4.2-5.4 [facility] Comment on above: Order Comment: 211.2 Performed By: #### L 500.2500 #### [facility] [address] [place], [address] RDW SD 46.5 fl High 35.1-43.9 [facility] Comment on above: Order Comment: 211.2 Performed By: #### L 500.2500 #### [facility] [address] [place], [address] WBC (Bld) [#/Vol] 5.4 10*3/uL Normal 4.4-11.0 [facility] Comment on above: Order Comment: 211.2 Performed By: #### L 500.2500 #### [facility] [address] [place], [address] Valproic Acid (Depakene) Lev maribell 08-06-2024 VALPROIC ACID 94 ug/mL Normal 50-100 [facility] Comment on above: Order Comment: 211.2 Performed By: #### L 500.2500 #### [facility] [address] [place], [address] CBC W/Diff, Automatedon 06-16 Absolute Lymph 2.80 X10 3/uL Normal 0.83-4.51 [facility] Comment on above: Order Comment: 211.2 Performed By: #### L 3410.9992, L500.2500, L506.1001, L509.1000, L501.2300, L501.5200, L3100.3450 #### [facility] [address] [place], [address] Absolute Neut 3.5 X10 3/uL Normal 2.0-7.7 [facility] Comment on above: Order Comment: 211.2 Performed By: #### L 3410.9992, L500.2500, L506.1001, L509.1000, L501.2300, L501.5200, L3100.3450 #### [facility] [address] [place], [address] Basophils/100 WBC (Bld) 1.1 % High 0-1 [facility] Comment on above: Order Comment: 211.2 Performed By: #### L 3410.9992, L500.2500, L506.1001, L509.1000, L501.2300, L501.5200, L3100.3450 #### [facility] [address] [place], [address] Eosinophils/100 WBC (Bld) 1.8 % Normal 0-5 [facility] Comment on above: Order Comment: 211.2 Performed By: #### L 3410.9992, L500.2500, L506.1001, L509.1000, L501.2300, L501.5200, L3100.3450 #### [facility] [address] [place], [address] Erythrocyte distribution width (RBC) [Ratio] 13.4 % Normal 11.6-14.6 [facility] Comment on above: Order Comment: 211.2 Performed By: #### L 3410.9992, L500.2500, L506.1001, L509.1000, L501.2300, L501.5200, L3100.3450 #### [facility] [address] [place], [address] Hematocrit (Bld) [Volume fraction] 35.9 % Low 37-47 [facility] Comment on above: Order Comment: 211.2 Performed By: #### L 3410.9992, L500.2500, L506.1001, L509.1000, L501.2300, L501.5200, L3100.3450 #### [facility] [address] [place], [address] Hemoglobin (Bld) [Mass/Vol] 11.3 g/dL Low 12.0-15.0 [facility] Comment on above: Order Comment: 211.2 Performed By: #### L 3410.9992, L500.2500, L506.1001, L509.1000, L501.2300, L501.5200, L3100.3450 #### [facility] [address] [place], [address] IG% 0.300 Normal 0.0-0.9 [facility] Comment on above: Order Comment: 211.2 Result Comment: IG% - Immature Granulocytes (promyelocytes, myelocytes and metamyelocytes) > 1% indicates that a LEFT SHIFT is Present. Performed By: #### L 3410.9992, L500.2500, L506.1001, L509.1000, L501.2300, L501.5200, L3100.3450 #### [facility] [address] [place], [address] Lymphocytes/100 WBC (Bld) 38.8 % Normal 19-41 [facility] Comment on above: Order Comment: 211.2 Performed By: #### L 3410.9992, L500.2500, L506.1001, L509.1000, L501.2300, L501.5200, L3100.3450 #### [facility] [address] [place], [address] MCH (RBC) [Entitic mass] 29.7 pg Normal 27.0-32.0 [facility] Comment on above: Order Comment: 211.2 Performed By: #### L 3410.9992, L500.2500, L506.1001, L509.1000, L501.2300, L501.5200, L3100.3450 #### [facility] [address] [place], [address] MCHC (RBC) [Mass/Vol] 31.5 g/dL Low 32-36 [facility] Comment on above: Order Comment: 211.2 Performed By: #### L 3410.9992, L500.2500, L506.1001, L509.1000, L501.2300, L501.5200, L3100.3450 #### [facility] [address] [place], [address] MCV (RBC) [Entitic vol] 94.2 fL Normal 81-99 [facility] Comment on above: Order Comment: 211.2 Performed By: #### L 3410.9992, L500.2500, L506.1001, L509.1000, L501.2300, L501.5200, L3100.3450 #### [facility] [address] [place], [address] Monocytes/100 WBC (Bld) 9.6 % Normal 0-10 [facility] Comment on above: Order Comment: 211.2 Performed By: #### L 3410.9992, L500.2500, L506.1001, L509.1000, L501.2300, L501.5200, L3100.3450 #### [facility] [address] [place], [address] Neutrophils/100 WBC (Bld) 48.4 % Normal 47-70 [facility] Comment on above: Order Comment: 211.2 Performed By: #### L 3410.9992, L500.2500, L506.1001, L509.1000, L501.2300, L501.5200, L3100.3450 #### [facility] [address] [place], [address] Nucleated RBC (Bld) [#/Vol] 0 10*3/uL Normal 0-5 [facility] Comment on above: Order Comment: 211.2 Performed By: #### L 3410.9992, L500.2500, L506.1001, L509.1000, L501.2300, L501.5200, L3100.3450 #### [facility] [address] [place], [address] Platelet mean volume (Bld) [Entitic vol] 12.0 fL Normal 6.2-12.0 [facility] Comment on above: Order Comment: 211.2 Performed By: #### L 3410.9992, L500.2500, L506.1001, L509.1000, L501.2300, L501.5200, L3100.3450 #### [facility] [address] [place], [address] Platelets (Bld) [#/Vol] 170 10*3/uL Normal 150-450 [facility] Comment on above: Order Comment: 211.2 Performed By: #### L 3410.9992, L500.2500, L506.1001, L509.1000, L501.2300, L501.5200, L3100.3450 #### [facility] [address] [place], [address] RBC (Bld) [#/Vol] 3.81 10*6/uL Low 4.2-5.4 [facility] Comment on above: Order Comment: 211.2 Performed By: #### L 3410.9992, L500.2500, L506.1001, L509.1000, L501.2300, L501.5200, L3100.3450 #### [facility] [address] [place], [address] RDW SD 46.4 fl High 35.1-43.9 [facility] Comment on above: Order Comment: 211.2 Performed By: #### L 3410.9992, L500.2500, L506.1001, L509.1000, L501.2300, L501.5200, L3100.3450 #### [facility] [address] [place], [address] WBC (Bld) [#/Vol] 7.2 10*3/uL Normal 4.4-11.0 [facility] Comment on above: Order Comment: 211.2 Performed By: #### L 3410.9992, L500.2500, L506.1001, L509.1000, L501.2300, L501.5200, L3100.3450 #### [facility] [address] [place], [address] Comprehensive Metabolic Prof [facility] 07-07-2024 Albumin [Mass/Vol] 3.1 g/dL Low 3.2-5.0 [facility] Comment on above: Order Comment: 211.2 Performed By: #### L 3410.9992, L500.2500, L506.1001, L509.1000, L501.2300, L501.5200, L3100.3450 #### [facility] [address] [place], [address] Albumin/Globulin [Mass ratio] 0.8 {ratio} Low 0.9-2.4 [facility] Comment on above: Order Comment: 211.2 Performed By: #### L 3410.9992, L500.2500, L506.1001, L509.1000, L501.2300, L501.5200, L3100.3450 #### [facility] [address] [place], [address] ALK P 105 U/L Normal 45-117 [facility] Comment on above: Order Comment: 211.2 Performed By: #### L 3410.9992, L500.2500, L506.1001, L509.1000, L501.2300, L501.5200, L3100.3450 #### [facility] [address] [place], [address] ALT [Catalytic activity/Vol] 17 U/L Normal 13-56 [facility] Comment on above: Order Comment: 211.2 Performed By: #### L 3410.9992, L500.2500, L506.1001, L509.1000, L501.2300, L501.5200, L3100.3450 #### [facility] [address] [place], [address] AST [Catalytic activity/Vol] 19 U/L Normal 15-37 [facility] Comment on above: Order Comment: 211.2 Performed By: #### L 3410.9992, L500.2500, L506.1001, L509.1000, L501.2300, L501.5200, L3100.3450 #### [facility] [address] [place], [address] Bilirubin [Mass/Vol] 0.20 mg/dL Normal 0.20-1.00 [facility] Comment on above: Order Comment: 211.2 Result Comment: For patients on eltrombopag therapy, use of Dimension [place] TBIL is not recommended. Performed By: #### L 3410.9992, L500.2500, L506.1001, L509.1000, L501.2300, L501.5200, L3100.3450 #### [facility] [address] [place], [address] BUN/CRE 27.0 RATIO High 10-20 [facility] Comment on above: Order Comment: 211.2 Performed By: #### L 3410.9992, L500.2500, L506.1001, L509.1000, L501.2300, L501.5200, L3100.3450 #### [facility] [address] [place], [address] CA,Total 9.3 mg/dL Normal 8.5-10.1 [facility] Comment on above: Order Comment: 211.2 Performed By: #### L 3410.9992, L500.2500, L506.1001, L509.1000, L501.2300, L501.5200, L3100.3450 #### [facility] [address] [place], [address] Chloride [Moles/Vol] 108 mmol/L High 98-107 [facility] Comment on above: Order Comment: 211.2 Performed By: #### L 3410.9992, L500.2500, L506.1001, L509.1000, L501.2300, L501.5200, L3100.3450 #### [facility] [address] [place], [address] CO2 [Moles/Vol] 27.0 mmol/L Normal 21.0-32.0 [facility] Comment on above: Order Comment: 211.2 Performed By: #### L 3410.9992, L500.2500, L506.1001, L509.1000, L501.2300, L501.5200, L3100.3450 #### [facility] [address] [place], [address] Creatinine [Mass/Vol] 0.70 mg/dL Normal 0.55-1.02 [facility] Comment on above: Order Comment: 211.2 Result Comment: The validity of the calculated GFR GFRAA in patients over 70 years has not been determined. Clinical correlation is essential. Performed By: #### L 3410.9992, L500.2500, L506.1001, L509.1000, L501.2300, L501.5200, L3100.3450 #### [facility] [address] [place], [address] EST GFR - AA 104 mL/min Normal >60 [facility] Comment on above: Order Comment: .2 Result Comment: Afri can Turkmen GFR Calc Performed By: #### L 3410.9992, L500.2500, L506.1001, L509.1000, L501.2300, L501.5200, L3100.3450 #### [facility] [address] [place], [address] GAP 6 Normal 5-15 [facility] Comment on above: Order Comment: .2 Performed By: #### L 3410.9992, L500.2500, L506.1001, L509.1000, L501.2300, L501.5200, L3100.3450 #### [facility] [address] [place], [address] GFR/1.73 sq M.predicted among non-blacks MDRD (S/P/Bld) [Vol rate/Area] 86 mL/min/{1.73_m2} Normal >60 [facility] Comment on above: Order Comment: .2 Result Comment: Non- GFR Calc Performed By: #### L 3410.9992, L500.2500, L506.1001, L509.1000, L501.2300, L501.5200, L3100.3450 #### [facility] [address] [place], [address] Globulin (S) [Mass/Vol] 3.8 g/dL Normal 2.2-4.2 [facility] Comment on above: Order Comment: .2 Performed By: #### L 3410.9992, L500.2500, L506.1001, L509.1000, L501.2300, L501.5200, L3100.3450 #### [facility] [address] [place], [address] Glucose [Mass/Vol] 91 mg/dL Normal 74-106 [facility] Comment on above: Order Comment: 211.2 Performed By: #### L 3410.9992, L500.2500, L506.1001, L509.1000, L501.2300, L501.5200, L3100.3450 #### [facility] [address] [place], [address] Potassium [Moles/Vol] 4.5 mmol/L Normal 3.5-5.1 [facility] Comment on above: Order Comment: 211.2 Performed By: #### L 3410.9992, L500.2500, L506.1001, L509.1000, L501.2300, L501.5200, L3100.3450 #### [facility] [address] [place], [address] Sodium [Moles/Vol] 141 mmol/L Normal 136-145 [facility] Comment on above: Order Comment: 211.2 Performed By: #### L 3410.9992, L500.2500, L506.1001, L509.1000, L501.2300, L501.5200, L3100.3450 #### [facility] [address] [place], [address] T PROT 6.9 g/dL Normal 6.4-8.2 [facility] Comment on above: Order Comment: 211.2 Performed By: #### L 3410.9992, L500.2500, L506.1001, L509.1000, L501.2300, L501.5200, L3100.3450 #### [facility] [address] [place], [address] Urea nitrogen [Mass/Vol] 19 mg/dL High 7-18 [facility] Comment on above: Order Comment: 211.2 Performed By: #### L 3410.9992, L500.2500, L506.1001, L509.1000, L501.2300, L501.5200, L3100.3450 #### [facility] [address] [place], [address] Phenytoin (Dilantin) Levelon 07-07-2024 PHENYTOIN 7.1 mL Low 10.0-20.0 [facility] Comment on above: Order Comment: 211.2 Performed By: #### L 3410.9992, L500.2500, L506.1001, L509.1000, L501.2300, L501.5200, L3100.3450 #### [facility] [address] [place], [place], [address] Valproic Acid (Depakene) Lev maribell 07-07-2024 VALPROIC ACID 103 ug/mL High 50-100 [facility] Comment on above: Order Comment: 211.2 Performed By: #### L 3410.9992, L500.2500, L506.1001, L509.1000, L501.2300, L501.5200, L3100.3450 #### [facility] [address] [facility] [place], [address] No Panel InformationOrdered By: Todd Velasquez on 11-05-2023 Valproic Acid (Depakene) Level 95 ug/mL 50-100 [facility] Absolute lymphocyte countOrd ered By: Todd Velasquez on 10-29-2023 Lymphocytes Auto (Unsp spec) [#/Vol] 2.23 10*3/uL 0.83-4.51 [facility] Basophil percentageOrdered B y: Todd Velasquez on 10-29-2023 Basophils/100 WBC (Bld) 0.7 % 0-1 [facility] Bilirubin [Mass/Vol] 0.40 mg/dL 0.20-1.00 [facility] Comment on above: For patients on eltr ombopag therapy, use of Dimension [place] TBIL is not recommended. Chloride [Moles/Vol] 106 mmol/L 98-107 [facility] Eosinophils/100 WBC (Bld) 1.6 % 0-5 [facility] Glucose [Mass/Vol] 88 mg/dL 74-106 [facility] Neutrophils (Bld) [#/Vol] 4.7 10*3/uL 2.0-7.7 [facility] Neutrophils/100 WBC (Bld) 58.1 % 47-70 [facility] Potassium [Moles/Vol] 4.3 mmol/L 3.5-5.1 [facility] Protein [Mass/Vol] 7.0 g/dL 6.4-8.2 [facility] Sodium [Moles/Vol] 139 mmol/L 136-145 [facility] WBC (Bld) [#/Vol] 8.1 10*3/uL 4.4-11.0 [facility] Blood erythrocytes count (nu mber/volume)Ordered By: Todd Velasquez on 10-29-2023 RBC (Bld) [#/Vol] 3.91 10*6/uL 4.2-5.4 [facility] Blood hemoglobin measurement (mass/volume)Ordered By: Todd Velasquez on 10-29-2023 Hemoglobin (Bld) [Mass/Vol] 12.1 g/dL 12.0-15.0 [facility] Blood lymphocytes/100 leukoc ytesOrdered By: Todd Velasquez on 10-29-2023 Lymphocytes/100 WBC (Bld) 27.7 % 19-41 [facility] Blood monocytes/100 leukocyt esOrdered By: Todd Velasquez on 10-29-2023 Monocytes/100 WBC (Bld) 11.4 % 0-10 [facility] Blood platelet mean volumeOr dered By: Todd Velasquez on 10-29-2023 Platelet mean volume (Bld) [Entitic vol] 11.4 fL 6.2-12.0 [facility] Determination of erythrocyte mean corpuscular volume (MCV)Ordered By: Todd Velasquez on 10-29-2023 MCV (RBC) [Entitic vol] 93.9 fL 81-99 [facility] [facility] Auto (Bld) [Volum e fraction]Ordered By: oTdd Velasquez on 10-29-2023 Hematocrit (Bld) [Volume fraction] 36.7 % 37-47 [facility] - Chemistry and C hemistry - challengeOrdered By: Todd Velasquez on 10-29-2023 ALP [Catalytic activity/Vol] 103 U/L 45-117 [facility] ALT [Catalytic activity/Vol] 12 U/L 13-56 [facility] CO2 [Moles/Vol] 26.0 mmol/L 21.0-32.0 [facility] Globulin (S) [Mass/Vol] 3.8 g/dL 2.2-4.2 [facility] Urea nitrogen/Creatinine [Mass ratio] 18.9 mg/mg 10-20 [facility] - Hematology and Cell countsOrdered By: Todd Velasquez on 10-29-2023 Erythrocyte distribution width (RBC) [Entitic vol] 44.3 fL 35.1-43.9 [facility] Erythrocyte distribution width (RBC) [Ratio] 13.0 % 11.6-14.6 [facility] Immature granulocytes/100 WBC (Bld) 0.500 % 0.0-0.9 [facility] Comment on above: IG% - Immature Granu locytes (promyelocytes, myelocytes and metamyelocytes) > 1% indicates that a LEFT SHIFT is Present. MCH (RBC) [Entitic mass] 30.9 pg 27.0-32.0 [facility] Nucleated RBC/100 WBC (Bld) [Ratio] 0 % 0-5 [facility] MCHC Auto (RBC) [Mass/Vol]Or dered By: Todd Velasquez on 10-29-2023 MCHC (RBC) [Mass/Vol] 33.0 g/dL 32-36 [facility] No Panel InformationOrdered By: Todd Velasquez on 10-29-2023 Estimated GFR (MDRD) Amer 107 mL/min >60 [facility] Comment on above: GFR Calc Estimated GFR (MDRD) Non-Af Amer 88 mL/min >60 [facility] Comment on above: Non- GFR Calc Valproic Acid (Depakene) Level 116 ug/mL 50-100 [facility] Platelets bldOrdered By: Ignacia Velasquez on 10-29-2023 Platelets (Bld) [#/Vol] 194 10*3/uL 150-450 [facility] Serum or plasma albumin jacob urement (mass/volume)Ordered By: Todd Velasquez on 10-29-2023 Albumin [Mass/Vol] 3.2 g/dL 3.2-5.0 [facility] Serum or plasma albumin/glob ulin mass ratioOrdered By: Todd Velasquez on 10-29-2023 Albumin/Globulin [Mass ratio] 0.8 {ratio} 0.9-2.4 [facility] Serum or plasma calcium jacob urement (mass/volume)Ordered By: Todd Velasquez on 10-29-2023 Calcium [Mass/Vol] 9.2 mg/dL 8.5-10.1 [facility] Serum or plasma creatinine m easurement (mass/volume)Ordered By: Todd Velasquez on 10-29-2023 Creatinine [Mass/Vol] 0.69 mg/dL 0.55-1.02 [facility] Comment on above: The validity of the calculated GFR & GFRAA in patients over 70 years has not been determined. Clinical correlation is essential. Serum or plasma phenytoin me asurement (mass/volume)Ordered By: Todd Velasquez on 10-29-2023 Phenytoin [Mass/Vol] 7.4 mL 10.0-20.0 [facility] Serum or plasma urea nitroge n measurement (mass/volume)Ordered By: Todd Velasquez on 10-29-2023 Urea nitrogen [Mass/Vol] 13 mg/dL 7-18 [facility] Thin prep Papanicolaou smear with manual screeningOrdered By: Todd Velasquez on 10-29-2023 Thin prep Papanicolaou smear with manual screening 19 U/L 15-37 [facility] Thin prep Papanicolaou smear with manual screening 7 5-15 [facility] Serum or plasma phenytoin me asurement (mass/volume)Ordered By: Tdod Velasquez on 09-25-2023 Phenytoin [Mass/Vol] 9.6 mL 10.0-20.0 [facility] Absolute lymphocyte countOrd ered By: Kee Amezquita on 09-18-2023 Lymphocytes Auto (Unsp spec) [#/Vol] 1.37 10*3/uL 0.83-4.51 [facility] Basophil percentageOrdered B y: Kee Amezquita on 09-18-2023 Basophils/100 WBC (Bld) 1.0 % 0-1 [facility] Chloride [Moles/Vol] 106 mmol/L 98-107 [facility] Eosinophils/100 WBC (Bld) 1.6 % 0-5 [facility] Glucose [Mass/Vol] 107 mg/dL 74-106 [facility] Comment on above: Fasting Glucose resu lt from 100 to 125 mg/dL suggests IMPAIRED HOMEOSTASIS per A.D.A. criteria. Neutrophils (Bld) [#/Vol] 3.7 10*3/uL 2.0-7.7 [facility] Neutrophils/100 WBC (Bld) 64.8 % 47-70 [facility] Potassium [Moles/Vol] 4.0 mmol/L 3.5-5.1 [facility] Sodium [Moles/Vol] 138 mmol/L 136-145 [facility] WBC (Bld) [#/Vol] 5.7 10*3/uL 4.4-11.0 [facility] Blood erythrocytes count (nu mber/volume)Ordered By: Kee Amezquita on 09-18-2023 RBC (Bld) [#/Vol] 4.37 10*6/uL 4.2-5.4 [facility] Blood hemoglobin measurement (mass/volume)Ordered By: Kee Amezquita on 09-18-2023 Hemoglobin (Bld) [Mass/Vol] 13.4 g/dL 12.0-15.0 [facility] Blood lymphocytes/100 leukoc ytesOrdered By: Kee Amezquita on 09-18-2023 Lymphocytes/100 WBC (Bld) 23.9 % 19-41 [facility] Blood monocytes/100 leukocyt esOrdered By: Kee Amezquita on 09-18-2023 Monocytes/100 WBC (Bld) 8.0 % 0-10 [facility] Blood platelet mean volumeOr dered By: Kee Amezquita on 09-18-2023 Platelet mean volume (Bld) [Entitic vol] 10.9 fL 6.2-12.0 [facility] Determination of erythrocyte mean corpuscular volume (MCV)Ordered By: Kee Amezquita on 09-18-2023 MCV (RBC) [Entitic vol] 93.8 fL 81-99 [facility] Hematocrit Auto (Bld) [Volum e fraction]Ordered By: Kee Amezquita on 09-18-2023 Hematocrit (Bld) [Volume fraction] 41.0 % 37-47 [facility] - Chemistry and C hemistry - challengeOrdered By: Kee Amezquita on 09-18-2023 CO2 [Moles/Vol] 26.0 mmol/L 21.0-32.0 [facility] Urea nitrogen/Creatinine [Mass ratio] 16.6 mg/mg 10-20 [facility] - Hematology and Cell countsOrdered By: Kee Amezquita on 09-18-2023 Erythrocyte distribution width (RBC) [Entitic vol] 43.6 fL 35.1-43.9 [facility] Erythrocyte distribution width (RBC) [Ratio] 12.5 % 11.6-14.6 [facility] Immature granulocytes/100 WBC (Bld) 0.700 % 0.0-0.9 [facility] Comment on above: IG% - Immature Granu locytes (promyelocytes, myelocytes and metamyelocytes) > 1% indicates that a LEFT SHIFT is Present. MCH (RBC) [Entitic mass] 30.7 pg 27.0-32.0 [facility] Nucleated RBC/100 WBC (Bld) [Ratio] 0 % 0-5 [facility] MCHC Auto (RBC) [Mass/Vol]Or dered By: Kee Amezquita on 09-18-2023 MCHC (RBC) [Mass/Vol] 32.7 g/dL 32-36 [facility] No Panel InformationOrdered By: Kee Amezquita on 09-18-2023 Estimated Creatinine Clearance Calc 41.33 ml/min [facility] Estimated GFR (MDRD) Amer 92 mL/min >60 [facility] Comment on above: GFR Calc Estimated GFR (MDRD) Non-Af Amer 76 mL/min >60 [facility] Comment on above: Non- GFR Calc Valproic Acid (Depakene) Level 70 ug/mL 50-100 [facility] Platelets bldOrdered By: Praneeth Amezquita on 09-18-2023 Platelets (Bld) [#/Vol] 210 10*3/uL 150-450 [facility] Serum or plasma calcium jacob urement (mass/volume)Ordered By: Kee Amezquita on 09-18-2023 Calcium [Mass/Vol] 9.1 mg/dL 8.5-10.1 [facility] Serum or plasma creatinine m easurement (mass/volume)Ordered By: Kee Amezquita on 09-18-2023 Creatinine [Mass/Vol] 0.78 mg/dL 0.55-1.02 [facility] Comment on above: The validity of the calculated GFR & GFRAA in patients over 70 years has not been determined. Clinical correlation is essential. Serum or plasma phenytoin me asurement (mass/volume)Ordered By: Kee Amezquita on 09-18-2023 Phenytoin [Mass/Vol] 9.6 mL 10.0-20.0 [facility] Serum or plasma urea nitroge n measurement (mass/volume)Ordered By: Kee Amezquita on 09-18-2023 Urea nitrogen [Mass/Vol] 13 mg/dL 7-18 [facility] Thin prep Papanicolaou smear with manual screeningOrdered By: Kee Amezquita on 09-18-2023 Thin prep Papanicolaou smear with manual screening 6 5-15 [facility] No Panel InformationOrdered By: Todd Velasquez on 08-15-2023 Valproic Acid (Depakene) Level 91 ug/mL 50-100 [facility] Serum or plasma phenytoin me asurement (mass/volume)Ordered By: Todd Velasquez on 08-15-2023 Phenytoin [Mass/Vol] 8.2 mL 10.0-20.0 [facility] Absolute lymphocyte countOrd ered By: Todd Velasquez on 08-06-2023 Lymphocytes Auto (Unsp spec) [#/Vol] 2.35 10*3/uL 0.83-4.51 [facility] Basophil percentageOrdered B y: Todd Velasquez on 08-06-2023 Basophils/100 WBC (Bld) 0.8 % 0-1 [facility] Bilirubin [Mass/Vol] 0.40 mg/dL 0.20-1.00 [facility] Comment on above: For patients on eltr ombopag therapy, use of Dimension [place] TBIL is not recommended. Chloride [Moles/Vol] 108 mmol/L 98-107 [facility] Eosinophils/100 WBC (Bld) 2.1 % 0-5 [facility] Glucose [Mass/Vol] 90 mg/dL 74-106 [facility] Neutrophils (Bld) [#/Vol] 3.0 10*3/uL 2.0-7.7 [facility] Neutrophils/100 WBC (Bld) 48.5 % 47-70 [facility] Potassium [Moles/Vol] 4.5 mmol/L 3.5-5.1 [facility] Protein [Mass/Vol] 6.7 g/dL 6.4-8.2 [facility] Sodium [Moles/Vol] 140 mmol/L 136-145 [facility] WBC (Bld) [#/Vol] 6.2 10*3/uL 4.4-11.0 [facility] Blood erythrocytes count (nu mber/volume)Ordered By: Todd Velasquez on 08-06-2023 RBC (Bld) [#/Vol] 3.90 10*6/uL 4.2-5.4 [facility] Blood hemoglobin measurement (mass/volume)Ordered By: Todd Velasquez on 08-06-2023 Hemoglobin (Bld) [Mass/Vol] 12.1 g/dL 12.0-15.0 [facility] Blood lymphocytes/100 leukoc ytesOrdered By: Todd Velasquez on 08-06-2023 Lymphocytes/100 WBC (Bld) 38.0 % 19-41 [facility] Blood monocytes/100 leukocyt esOrdered By: Todd Velasquez on 08-06-2023 Monocytes/100 WBC (Bld) 10.3 % 0-10 [facility] Blood platelet mean volumeOr dered By: Todd Velasquez on 08-06-2023 Platelet mean volume (Bld) [Entitic vol] 11.8 fL 6.2-12.0 [facility] Determination of erythrocyte mean corpuscular volume (MCV)Ordered By: Todd Velasquez on 08-06-2023 MCV (RBC) [Entitic vol] 95.9 fL 81-99 [facility] Hematocrit Auto (Bld) [Volum e fraction]Ordered By: Todd Velasquez on 08-06-2023 Hematocrit (Bld) [Volume fraction] 37.4 % 37-47 [facility] - Chemistry and C hemistry - challengeOrdered By: Todd Velasquez on 08-06-2023 ALP [Catalytic activity/Vol] 99 U/L 45-117 [facility] ALT [Catalytic activity/Vol] 18 U/L 13-56 [facility] CO2 [Moles/Vol] 29.0 mmol/L 21.0-32.0 [facility] Globulin (S) [Mass/Vol] 3.6 g/dL 2.2-4.2 [facility] Urea nitrogen/Creatinine [Mass ratio] 21.8 mg/mg 10-20 [facility] - Hematology and Cell countsOrdered By: Todd Velasquez on 08-06-2023 Erythrocyte distribution width (RBC) [Entitic vol] 46.5 fL 35.1-43.9 [facility] Erythrocyte distribution width (RBC) [Ratio] 13.1 % 11.6-14.6 [facility] Immature granulocytes/100 WBC (Bld) 0.300 % 0.0-0.9 [facility] Comment on above: IG% - Immature Granu locytes (promyelocytes, myelocytes and metamyelocytes) > 1% indicates that a LEFT SHIFT is Present. MCH (RBC) [Entitic mass] 31.0 pg 27.0-32.0 [facility] Nucleated RBC/100 WBC (Bld) [Ratio] 0 % 0-5 [facility] MCHC Auto (RBC) [Mass/Vol]Or dered By: Todd Velasquez on 08-06-2023 MCHC (RBC) [Mass/Vol] 32.4 g/dL 32-36 [facility] No Panel InformationOrdered By: Todd Velasquez on 08-06-2023 Estimated GFR (MDRD) Amer 99 mL/min >60 [facility] Comment on above: GFR Calc Estimated GFR (MDRD) Non-Af Amer 82 mL/min >60 [facility] Comment on above: Non- GFR Calc Valproic Acid (Depakene) Level 102 ug/mL 50-100 [facility] Platelets bldOrdered By: Ignacia Velasquez on 08-06-2023 Platelets (Bld) [#/Vol] 169 10*3/uL 150-450 [facility] Serum or plasma albumin jacob urement (mass/volume)Ordered By: Todd Velasquez on 08-06-2023 Albumin [Mass/Vol] 3.1 g/dL 3.2-5.0 [facility] Serum or plasma albumin/glob ulin mass ratioOrdered By: Todd Velasquez on 08-06-2023 Albumin/Globulin [Mass ratio] 0.9 {ratio} 0.9-2.4 [facility] Serum or plasma calcium jacob urement (mass/volume)Ordered By: Todd Velasquez on 08-06-2023 Calcium [Mass/Vol] 8.9 mg/dL 8.5-10.1 [facility] Serum or plasma creatinine m easurement (mass/volume)Ordered By: Todd Velasquez on 08-06-2023 Creatinine [Mass/Vol] 0.74 mg/dL 0.55-1.02 [facility] Comment on above: The validity of the calculated GFR & GFRAA in patients over 70 years has not been determined. Clinical correlation is essential. Serum or plasma phenytoin me asurement (mass/volume)Ordered By: Todd Velasquez on 08-06-2023 Phenytoin [Mass/Vol] 7.0 mL 10.0-20.0 [facility] Serum or plasma urea nitroge n measurement (mass/volume)Ordered By: Todd Velasquez on 08-06-2023 Urea nitrogen [Mass/Vol] 16 mg/dL 7-18 [facility] Thin prep Papanicolaou smear with manual screeningOrdered By: Todd Velasquez on 08-06-2023 Thin prep Papanicolaou smear with manual screening 16 U/L 15-37 [facility] Thin prep Papanicolaou smear with manual screening 3 5-15 [facility] Absolute lymphocyte countOrd ered By: Todd Velasquez on 05-14-2023 Lymphocytes Auto (Unsp spec) [#/Vol] 2.33 10*3/uL 0.83-4.51 [facility] Basophil percentageOrdered B y: Todd Velasquez on 05-14-2023 Basophils/100 WBC (Bld) 0.9 % 0-1 [facility] Bilirubin [Mass/Vol] 0.30 mg/dL 0.20-1.00 [facility] Comment on above: For patients on eltr ombopag therapy, use of Dim[employer] [place] TBIL is not recommended. Chloride [Moles/Vol] 107 mmol/L 98-107 [facility] Eosinophils/100 WBC (Bld) 2.0 % 0-5 [facility] Glucose [Mass/Vol] 87 mg/dL 74-106 [facility] Neutrophils (Bld) [#/Vol] 3.2 10*3/uL 2.0-7.7 [facility] Neutrophils/100 WBC (Bld) 50.0 % 47-70 [facility] Potassium [Moles/Vol] 4.7 mmol/L 3.5-5.1 [facility] Protein [Mass/Vol] 6.7 g/dL 6.4-8.2 [facility] Sodium [Moles/Vol] 138 mmol/L 136-145 [facility] WBC (Bld) [#/Vol] 6.4 10*3/uL 4.4-11.0 [facility] Blood erythrocytes count (nu mber/volume)Ordered By: Todd Velsaquez on 05-14-2023 RBC (Bld) [#/Vol] 3.95 10*6/uL 4.2-5.4 [facility] Blood hemoglobin measurement (mass/volume)Ordered By: Todd Velasquez on 05-14-2023 Hemoglobin (Bld) [Mass/Vol] 12.2 g/dL 12.0-15.0 [facility] Blood lymphocytes/100 leukoc ytesOrdered By: Todd Velasquez on 05-14-2023 Lymphocytes/100 WBC (Bld) 36.5 % 19-41 [facility] Blood monocytes/100 leukocyt esOrdered By: Todd Velasquez on 05-14-2023 Monocytes/100 WBC (Bld) 10.3 % 0-10 [facility] Blood platelet mean volumeOr dered By: Todd Velasquez on 05-14-2023 Platelet mean volume (Bld) [Entitic vol] 12.1 fL 6.2-12.0 [facility] Determination of erythrocyte mean corpuscular volume (MCV)Ordered By: Todd Velasquez on 05-14-2023 MCV (RBC) [Entitic vol] 96.2 fL 81-99 [facility] Hematocrit Auto (Bld) [Volum e fraction]Ordered By: Todd Velasuqez on 05-14-2023 Hematocrit (Bld) [Volume fraction] 38.0 % 37-47 [facility] - Chemistry and C hemistry - challengeOrdered By: Todd Velasquez on 05-14-2023 ALP [Catalytic activity/Vol] 111 U/L 45-117 [facility] ALT [Catalytic activity/Vol] 16 U/L 13-56 [facility] CO2 [Moles/Vol] 28.0 mmol/L 21.0-32.0 [facility] Globulin (S) [Mass/Vol] 3.5 g/dL 2.2-4.2 [facility] Urea nitrogen/Creatinine [Mass ratio] 28.6 mg/mg 10-20 [facility] - Hematology and Cell countsOrdered By: Todd Velasquez on 05-14-2023 Erythrocyte distribution width (RBC) [Entitic vol] 46.6 fL 35.1-43.9 [facility] Erythrocyte distribution width (RBC) [Ratio] 13.0 % 11.6-14.6 [facility] Immature granulocytes/100 WBC (Bld) 0.300 % 0.0-0.9 [facility] Comment on above: IG% - Immature Granu locytes (promyelocytes, myelocytes and metamyelocytes) > 1% indicates that a LEFT SHIFT is Present. MCH (RBC) [Entitic mass] 30.9 pg 27.0-32.0 [facility] Nucleated RBC/100 WBC (Bld) [Ratio] 0 % 0-5 [facility] MCHC Auto (RBC) [Mass/Vol]Or dered By: Todd Velasquez on 05-14-2023 MCHC (RBC) [Mass/Vol] 32.1 g/dL 32-36 [facility] No Panel InformationOrdered By: Todd Velasquez on 05-14-2023 Estimated GFR (MDRD) Amer 111 mL/min >60 [facility] Comment on above: GFR Calc Estimated GFR (MDRD) Non-Af Amer 92 mL/min >60 [facility] Comment on above: Non- GFR Calc Valproic Acid (Depakene) Level 62 ug/mL 50-100 [facility] Platelets bldOrdered By: Ignacia Velasquez on 05-14-2023 Platelets (Bld) [#/Vol] 175 10*3/uL 150-450 [facility] Serum or plasma albumin jacob urement (mass/volume)Ordered By: Todd Velasquez on 05-14-2023 Albumin [Mass/Vol] 3.2 g/dL 3.2-5.0 [facility] Serum or plasma albumin/glob ulin mass ratioOrdered By: Todd Velasquez on 05-14-2023 Albumin/Globulin [Mass ratio] 0.9 {ratio} 0.9-2.4 [facility] Serum or plasma calcium jacob urement (mass/volume)Ordered By: Todd Velasquez on 05-14-2023 Calcium [Mass/Vol] 8.8 mg/dL 8.5-10.1 [facility] Serum or plasma creatinine m easurement (mass/volume)Ordered By: Todd Velasquez on 05-14-2023 Creatinine [Mass/Vol] 0.66 mg/dL 0.55-1.02 [facility] Comment on above: The validity of the calculated GFR & GFRAA in patients over 70 years has not been determined. Clinical correlation is essential. Serum or plasma phenytoin me asurement (mass/volume)Ordered By: Todd Velasquez on 05-14-2023 Phenytoin [Mass/Vol] 8.9 mL 10.0-20.0 [facility] Serum or plasma urea nitroge n measurement (mass/volume)Ordered By: Todd Velasquez on 05-14-2023 Urea nitrogen [Mass/Vol] 19 mg/dL 7-18 [facility] Thin prep Papanicolaou smear with manual screeningOrdered By: Todd Velasquez on 05-14-2023 Thin prep Papanicolaou smear with manual screening 18 U/L 15-37 [facility] Thin prep Papanicolaou smear with manual screening 3 5-15 [facility] Absolute lymphocyte countOrd ered By: Todd Velasquez on 11-27-2022 Lymphocytes Auto (Unsp spec) [#/Vol] 2.72 10*3/uL 0.83-4.51 [facility] Basophil percentageOrdered B y: Todd Velasquez on 11-27-2022 Basophils/100 WBC (Bld) 0.6 % 0-1 [facility] Bilirubin [Mass/Vol] 0.20 mg/dL 0.20-1.00 [facility] Comment on above: For patients on eltr ombopag therapy, use of Dim[employer] [place] TBIL is not recommended. Chloride [Moles/Vol] 107 mmol/L 98-107 [facility] Eosinophils/100 WBC (Bld) 1.8 % 0-5 [facility] Glucose [Mass/Vol] 84 mg/dL 74-106 [facility] Neutrophils (Bld) [#/Vol] 3.2 10*3/uL 2.0-7.7 [facility] Neutrophils/100 WBC (Bld) 47.4 % 47-70 [facility] Potassium [Moles/Vol] 4.7 mmol/L 3.5-5.1 [facility] Protein [Mass/Vol] 7.5 g/dL 6.4-8.2 [facility] Sodium [Moles/Vol] 139 mmol/L 136-145 [facility] WBC (Bld) [#/Vol] 6.7 10*3/uL 4.4-11.0 [facility] Blood erythrocytes count (nu mber/volume)Ordered By: Todd Velasquez on 11-27-2022 RBC (Bld) [#/Vol] 3.67 10*6/uL 4.2-5.4 [facility] Blood hemoglobin measurement (mass/volume)Ordered By: Todd Velasquez on 11-27-2022 Hemoglobin (Bld) [Mass/Vol] 11.6 g/dL 12.0-15.0 [facility] Blood lymphocytes/100 leukoc ytesOrdered By: Todd Velasqeuz on 11-27-2022 Lymphocytes/100 WBC (Bld) 40.6 % 19-41 [facility] Blood monocytes/100 leukocyt esOrdered By: Todd Velasquez on 11-27-2022 Monocytes/100 WBC (Bld) 9.3 % 0-10 [facility] Blood platelet mean volumeOr dered By: Todd Velasquez on 11-27-2022 Platelet mean volume (Bld) [Entitic vol] 11.3 fL 6.2-12.0 [facility] Determination of erythrocyte mean corpuscular volume (MCV)Ordered By: Todd Velasquez on 11-27-2022 MCV (RBC) [Entitic vol] 97.3 fL 81-99 [facility] Hematocrit Auto (Bld) [Volum e fraction]Ordered By: Todd Velasquez on 11-27-2022 Hematocrit (Bld) [Volume fraction] 35.7 % 37-47 [facility] - Chemistry and C hemistry - challengeOrdered By: Todd Velasquez on 11-27-2022 ALP [Catalytic activity/Vol] 96 U/L 45-117 [facility] ALT [Catalytic activity/Vol] 14 U/L 13-56 [facility] CO2 [Moles/Vol] 27.0 mmol/L 21.0-32.0 [facility] Globulin (S) [Mass/Vol] 4.8 g/dL 2.2-4.2 [facility] Urea nitrogen/Creatinine [Mass ratio] 32.4 mg/mg 10-20 [facility] - Hematology and Cell countsOrdered By: Todd Velasquez on 11-27-2022 Erythrocyte distribution width (RBC) [Entitic vol] 47.7 fL 35.1-43.9 [facility] Erythrocyte distribution width (RBC) [Ratio] 13.2 % 11.6-14.6 [facility] Immature granulocytes/100 WBC (Bld) 0.300 % 0.0-0.9 [facility] Comment on above: IG% - Immature Granu locytes (promyelocytes, myelocytes and metamyelocytes) > 1% indicates that a LEFT SHIFT is Present. MCH (RBC) [Entitic mass] 31.6 pg 27.0-32.0 [facility] Nucleated RBC/100 WBC (Bld) [Ratio] 0 % 0-5 [facility] MCHC Auto (RBC) [Mass/Vol]Or dered By: Todd Velasquez on 11-27-2022 MCHC (RBC) [Mass/Vol] 32.5 g/dL 32-36 [facility] No Panel InformationOrdered By: Todd Velasquez on 11-27-2022 Estimated GFR (MDRD) Amer 115 mL/min >60 [facility] Comment on above: GFR Calc Estimated GFR (MDRD) Non-Af Amer 95 mL/min >60 [facility] Comment on above: Non- GFR Calc Valproic Acid (Depakene) Level 72 ug/mL 50-100 [facility] Platelets bldOrdered By: Ignacia Velasquez on 11-27-2022 Platelets (Bld) [#/Vol] 187 10*3/uL 150-450 [facility] Serum or plasma albumin jacob urement (mass/volume)Ordered By: Todd Velasquez on 11-27-2022 Albumin [Mass/Vol] 2.7 g/dL 3.2-5.0 [facility] Serum or plasma albumin/glob ulin mass ratioOrdered By: Todd Velasquez on 11-27-2022 Albumin/Globulin [Mass ratio] 0.6 {ratio} 0.9-2.4 [facility] Serum or plasma calcium jacob urement (mass/volume)Ordered By: Todd Velasquez on 11-27-2022 Calcium [Mass/Vol] 9.1 mg/dL 8.5-10.1 [facility] Serum or plasma creatinine m easurement (mass/volume)Ordered By: Todd Velasquez on 11-27-2022 Creatinine [Mass/Vol] 0.65 mg/dL 0.55-1.02 [facility] Comment on above: The validity of the calculated GFR & GFRAA in patients over 70 years has not been determined. Clinical correlation is essential. Serum or plasma phenytoin me asurement (mass/volume)Ordered By: Todd Velasquez on 11-27-2022 Phenytoin [Mass/Vol] 10.5 mL 10.0-20.0 [facility] Serum or plasma urea nitroge n measurement (mass/volume)Ordered By: Todd Velasquez on 11-27-2022 Urea nitrogen [Mass/Vol] 21 mg/dL 7-18 [facility] Thin prep Papanicolaou smear with manual screeningOrdered By: Todd Velasquez on 11-27-2022 Thin prep Papanicolaou smear with manual screening 16 U/L 15-37 [facility] Thin prep Papanicolaou smear with manual screening 5 5-15 [facility] Serum or plasma phenytoin me asurement (mass/volume)Ordered By: Todd Velasquez on 10-30-2022 Phenytoin [Mass/Vol] 9.8 mL 10.0-20.0 [facility] Basophil percentageOrdered B y: Todd Velasquez on 10-24-2022 Bilirubin [Mass/Vol] 0.30 mg/dL 0.20-1.00 [facility] Comment on above: For patients on eltr ombopag therapy, use of Dim[employer] [place] TBIL is not recommended. Chloride [Moles/Vol] 106 mmol/L 98-107 [facility] Glucose [Mass/Vol] 80 mg/dL 74-106 [facility] Potassium [Moles/Vol] 4.0 mmol/L 3.5-5.1 [facility] Protein [Mass/Vol] 6.6 g/dL 6.4-8.2 [facility] Sodium [Moles/Vol] 141 mmol/L 136-145 [facility] WBC (Bld) [#/Vol] 6.5 10*3/uL 4.4-11.0 [facility] Blood erythrocytes count (nu mber/volume)Ordered By: Todd Velasquez on 10-24-2022 RBC (Bld) [#/Vol] 3.82 10*6/uL 4.2-5.4 [facility] Blood hemoglobin measurement (mass/volume)Ordered By: Todd Velasquez on 10-24-2022 Hemoglobin (Bld) [Mass/Vol] 12.4 g/dL 12.0-15.0 [facility] Blood platelet mean volumeOr dered By: Todd Velasquez on 10-24-2022 Platelet mean volume (Bld) [Entitic vol] 11.0 fL 6.2-12.0 [facility] Determination of erythrocyte mean corpuscular volume (MCV)Ordered By: Todd Velasquez on 10-24-2022 MCV (RBC) [Entitic vol] 95.5 fL 81-99 [facility] Hematocrit Auto (Bld) [Volum e fraction]Ordered By: Todd Velasquez on 10-24-2022 Hematocrit (Bld) [Volume fraction] 36.5 % 37-47 [facility] - Chemistry and C hemistry - challengeOrdered By: Todd Velasquez on 10-24-2022 ALP [Catalytic activity/Vol] 92 U/L 45-117 [facility] ALT [Catalytic activity/Vol] 11 U/L 13-56 [facility] CO2 [Moles/Vol] 27.0 mmol/L 21.0-32.0 [facility] Globulin (S) [Mass/Vol] 4.1 g/dL 2.2-4.2 [facility] [facility] Urea nitrogen/Creatinine [Mass ratio] 20.3 mg/mg 10-20 [facility] - Hematology and Cell countsOrdered By: Todd Velasquez on 10-24-2022 Erythrocyte distribution width (RBC) [Entitic vol] 43.8 fL 35.1-43.9 [facility] Erythrocyte distribution width (RBC) [Ratio] 12.7 % 11.6-14.6 [facility] MCH (RBC) [Entitic mass] 32.5 pg 27.0-32.0 [facility] MCHC Auto (RBC) [Mass/Vol]Or dered By: Todd Velasquez on 10-24-2022 MCHC (RBC) [Mass/Vol] 34.0 g/dL 32-36 [facility] No Panel InformationOrdered By: Todd Velasquez on 10-24-2022 Estimated GFR (MDRD) Amer 127 mL/min >60 [facility] Comment on above: GFR Calc Estimated GFR (MDRD) Non-Af Amer 105 mL/min >60 [facility] Comment on above: Non- GFR Calc Thyroid Stimulating Hormone (TSH) 3.19 uIU/mL 0.358-3.74 [facility] Valproic Acid (Depakene) Level 103 ug/mL 50-100 [facility] Platelets bldOrdered By: Ignacia Velasquez on 10-24-2022 Platelets (Bld) [#/Vol] 265 10*3/uL 150-450 [facility] Serum or plasma albumin jacob urement (mass/volume)Ordered By: oTdd Velasquez on 10-24-2022 Albumin [Mass/Vol] 2.5 g/dL 3.2-5.0 [facility] Serum or plasma albumin/glob ulin mass ratioOrdered By: Todd Velasquez on 10-24-2022 Albumin/Globulin [Mass ratio] 0.6 {ratio} 0.9-2.4 [facility] Serum or plasma calcium jacob urement (mass/volume)Ordered By: Todd Velasquez on 10-24-2022 Calcium [Mass/Vol] 8.7 mg/dL 8.5-10.1 [facility] Serum or plasma creatinine m easurement (mass/volume)Ordered By: Todd Velasquez on 10-24-2022 Creatinine [Mass/Vol] 0.59 mg/dL 0.55-1.02 [facility] Comment on above: The validity of the calculated GFR & GFRAA in patients over 70 years has not been determined. Clinical correlation is essential. Serum or plasma phenytoin me asurement (mass/volume)Ordered By: Todd Velasquez on 10-24-2022 Phenytoin [Mass/Vol] 9.6 mL 10.0-20.0 [facility] Serum or plasma urea nitroge n measurement (mass/volume)Ordered By: Todd Velasquez on 10-24-2022 Urea nitrogen [Mass/Vol] 12 mg/dL 7-18 [facility] Thin prep Papanicolaou smear with manual screeningOrdered By: Todd Velasquez on 10-24-2022 Thin prep Papanicolaou smear with manual screening 13 U/L 15-37 [facility] Thin prep Papanicolaou smear with manual screening 8 5-15 [facility] Absolute lymphocyte countOrd ered By: Orville Mendoza on 09-04-2022 Lymphocytes Auto (Unsp spec) [#/Vol] 2.50 10*3/uL 0.83-4.51 [facility] Basophil percentageOrdered B y: Orville Mendoza on 09-04-2022 Basophils/100 WBC (Bld) 0.8 % 0-1 [facility] Bilirubin [Mass/Vol] 0.40 mg/dL 0.20-1.00 [facility] Comment on above: For patients on eltr ombopag therapy, use of [place] TBIL is not recommended. Chloride [Moles/Vol] 110 mmol/L 98-107 [facility] Eosinophils/100 WBC (Bld) 1.9 % 0-5 [facility] Glucose [Mass/Vol] 78 mg/dL 74-106 [facility] Neutrophils (Bld) [#/Vol] 2.9 10*3/uL 2.0-7.7 [facility] Neutrophils/100 WBC (Bld) 46.7 % 47-70 [facility] Potassium [Moles/Vol] 4.8 mmol/L 3.5-5.1 [facility] Protein [Mass/Vol] 6.5 g/dL 6.4-8.2 [facility] Sodium [Moles/Vol] 142 mmol/L 136-145 [facility] WBC (Bld) [#/Vol] 6.3 10*3/uL 4.4-11.0 [facility] Blood erythrocytes count (nu mber/volume)Ordered By: Orville Mendoza on 09-04-2022 RBC (Bld) [#/Vol] 3.96 10*6/uL 4.2-5.4 [facility] Blood hemoglobin measurement (mass/volume)Ordered By: Orville Mendoza on 09-04-2022 Hemoglobin (Bld) [Mass/Vol] 12.7 g/dL 12.0-15.0 [facility] Blood lymphocytes/100 leukoc ytesOrdered By: Orville Mendoza on 09-04-2022 Lymphocytes/100 WBC (Bld) 39.9 % 19-41 [facility] Blood monocytes/100 leukocyt esOrdered By: Orville Mendoza on 09-04-2022 Monocytes/100 WBC (Bld) 10.4 % 0-10 [facility] Blood platelet mean volumeOr dered By: Orville Mendoza on 09-04-2022 Platelet mean volume (Bld) [Entitic vol] 11.6 fL 6.2-12.0 [facility] Determination of erythrocyte mean corpuscular volume (MCV)Ordered By: Orville Mendoza on 09-04-2022 MCV (RBC) [Entitic vol] 96.0 fL 81-99 [facility] Hematocrit Auto (Bld) [Volum e fraction]Ordered By: Orville Mendoza on 09-04-2022 Hematocrit (Bld) [Volume fraction] 38.0 % 37-47 [facility] - Chemistry and C hemistry - challengeOrdered By: Orville Mendoza on 09-04-2022 ALP [Catalytic activity/Vol] 108 U/L 45-117 [facility] ALT [Catalytic activity/Vol] 12 U/L 13-56 [facility] CO2 [Moles/Vol] 26.0 mmol/L 21.0-32.0 [facility] Globulin (S) [Mass/Vol] 3.6 g/dL 2.2-4.2 [facility] Urea nitrogen/Creatinine [Mass ratio] 25.3 mg/mg 10-20 [facility] - Hematology and Cell countsOrdered By: Orville Mendoza on 09-04-2022 Erythrocyte distribution width (RBC) [Entitic vol] 45.3 fL 35.1-43.9 [facility] Erythrocyte distribution width (RBC) [Ratio] 12.7 % 11.6-14.6 [facility] Immature granulocytes/100 WBC (Bld) 0.300 % 0.0-0.9 [facility] Comment on above: IG% - Immature Granu locytes (promyelocytes, myelocytes and metamyelocytes) > 1% indicates that a LEFT SHIFT is Present. MCH (RBC) [Entitic mass] 32.1 pg 27.0-32.0 [facility] Nucleated RBC/100 WBC (Bld) [Ratio] 0 % 0-5 [facility] MCHC Auto (RBC) [Mass/Vol]Or dered By: Orville Mendoza on 09-04-2022 MCHC (RBC) [Mass/Vol] 33.4 g/dL 32-36 [facility] No Panel InformationOrdered By: Orville Mendoza on 09-04-2022 Estimated GFR (MDRD) Amer 138 mL/min >60 [facility] Comment on above: GFR Calc Estimated GFR (MDRD) Non-Af Amer 114 mL/min >60 [facility] Comment on above: Non- GFR Calc Valproic Acid (Depakene) Level 62 ug/mL 50-100 [facility] Platelets bldOrdered By: Russ Mendoza on 09-04-2022 Platelets (Bld) [#/Vol] 180 10*3/uL 150-450 [facility] Serum or plasma albumin jacob urement (mass/volume)Ordered By: Orville Mendoza on 09-04-2022 Albumin [Mass/Vol] 2.9 g/dL 3.2-5.0 [facility] Serum or plasma albumin/glob ulin mass ratioOrdered By: Orville Mendoza on 09-04-2022 Albumin/Globulin [Mass ratio] 0.8 {ratio} 0.9-2.4 [facility] Serum or plasma calcium jacob urement (mass/volume)Ordered By: Orville Mendoza on 09-04-2022 Calcium [Mass/Vol] 9.0 mg/dL 8.5-10.1 [facility] Serum or plasma creatinine m easurement (mass/volume)Ordered By: Orville Mendoza on 09-04-2022 Creatinine [Mass/Vol] 0.55 mg/dL 0.55-1.02 [facility] Comment on above: The validity of the calculated GFR & GFRAA in patients over 70 years has not been determined. Clinical correlation is essential. Serum or plasma phenytoin me asurement (mass/volume)Ordered By: Orville Mendoza on 09-04-2022 Phenytoin [Mass/Vol] 11.7 mL 10.0-20.0 [facility] Serum or plasma urea nitroge n measurement (mass/volume)Ordered By: Orville Mendoza on 09-04-2022 Urea nitrogen [Mass/Vol] 14 mg/dL 7-18 [facility] Thin prep Papanicolaou smear with manual screeningOrdered By: Orville Mendoza on 09-04-2022 Thin prep Papanicolaou smear with manual screening 16 U/L 15-37 [facility] Thin prep Papanicolaou smear with manual screening 6 5-15 [facility] Absolute lymphocyte counton 06-12-2022 Lymphocytes Auto (Unsp spec) [#/Vol] 2.92 10*3/uL 0.83-4.51 [facility] Work Phone: Basophil percentageon 2021 Basophils/100 WBC (Bld) 0.7 % 0-1 [facility] Work Phone: Bilirubin [Mass/Vol] 0.40 mg/dL 0.20-1.00 [facility] Work Phone: Comment on above: For patients on eltr ombopag therapy, use of [place] TBIL is not recommended. Chloride [Moles/Vol] 108 mmol/L 98-107 [facility] Work Phone: Eosinophils/100 WBC (Bld) 1.7 % 0-5 [facility] Work Phone: Glucose [Mass/Vol] 77 mg/dL 74-106 [facility] Work Phone: Neutrophils (Bld) [#/Vol] 3.4 10*3/uL 2.0-7.7 [facility] Work Phone: Neutrophils/100 WBC (Bld) 46.5 % 47-70 [facility] Work Phone: Potassium [Moles/Vol] 4.7 mmol/L 3.5-5.1 [facility] Work Phone: Protein [Mass/Vol] 6.5 g/dL 6.4-8.2 [facility] Work Phone: Sodium [Moles/Vol] 141 mmol/L 136-145 [facility] Work Phone: WBC (Bld) [#/Vol] 7.3 10*3/uL 4.4-11.0 [facility] Work Phone: Blood erythrocytes count (nu mber/volume)on 06-12-2022 RBC (Bld) [#/Vol] 3.84 10*6/uL 4.2-5.4 [facility] Work Phone: Blood hemoglobin measurement (mass/volume)on 06-12-2022 Hemoglobin (Bld) [Mass/Vol] 12.5 g/dL 12.0-15.0 [facility] Work Phone: Blood lymphocytes/100 leukoc yteson 06-12-2022 Lymphocytes/100 WBC (Bld) 40.3 % 19-41 [facility] Work Phone: Blood monocytes/100 leukocyt eson 06-12-2022 Monocytes/100 WBC (Bld) 10.5 % 0-10 [facility] Work Phone: Blood platelet mean volumeon 06-12-2022 Platelet mean volume (Bld) [Entitic vol] 12.2 fL 6.2-12.0 [facility] Work Phone: Determination of erythrocyte mean corpuscular volume (MCV)on 06-12-2022 MCV (RBC) [Entitic vol] 96.9 fL 81-99 [facility] Work Phone: Hematocrit Auto (Bld) [Volum e fraction]on 06-12-2022 Hematocrit (Bld) [Volume fraction] 37.2 % 37-47 [facility] Work Phone: Laboratory - Chemistry and C hemistry - challengeon 06-12-2022 ALP [Catalytic activity/Vol] 81 U/L 45-117 [facility] Work Phone: ALT [Catalytic activity/Vol] 18 U/L 13-56 [facility] Work Phone: CO2 [Moles/Vol] 28.0 mmol/L 21.0-32.0 [facility] Work Phone: Globulin (S) [Mass/Vol] 3.6 g/dL 2.2-4.2 [facility] Work Phone: Urea nitrogen/Creatinine [Mass ratio] 32.4 mg/mg 10-20 [facility] Work Phone: Laboratory - Hematology and Cell countson 06-12-2022 Erythrocyte distribution width (RBC) [Entitic vol] 45.7 fL 35.1-43.9 [facility] Work Phone: Erythrocyte distribution width (RBC) [Ratio] 12.8 % 11.6-14.6 [facility] Work Phone: Immature granulocytes/100 WBC (Bld) 0.300 % 0.0-0.9 [facility] Work Phone: Comment on above: IG% - Immature Granu locytes (promyelocytes, myelocytes and metamyelocytes) > 1% indicates that a LEFT SHIFT is Present. MCH (RBC) [Entitic mass] 32.6 pg 27.0-32.0 [facility] Work Phone: Nucleated RBC/100 WBC (Bld) [Ratio] 0 % 0-5 [facility] Work Phone: MCHC Auto (RBC) [Mass/Vol]on 06-12-2022 MCHC (RBC) [Mass/Vol] 33.6 g/dL 32-36 [facility] Work Phone: No Panel Informationon 06-12 Estimated GFR (MDRD) Amer 103 mL/min >60 [facility] Work Phone: Comment on above: GFR Calc Estimated GFR (MDRD) Non-Af Amer 85 mL/min >60 [facility] Work Phone: Comment on above: Non- GFR Calc Valproic Acid (Depakene) Level 102 ug/mL 50-100 [facility] Work Phone: Platelets bldon 06-12-2022 Platelets (Bld) [#/Vol] 155 10*3/uL 150-450 [facility] Work Phone: [phone] Serum or plasma albumin jacob urement (mass/volume)on 06-12-2022 Albumin [Mass/Vol] 2.9 g/dL 3.2-5.0 [facility] Work Phone: Serum or plasma albumin/glob ulin mass ratioon 06-12-2022 Albumin/Globulin [Mass ratio] 0.8 {ratio} 0.9-2.4 [facility] Work Phone: Serum or plasma calcium jacob urement (mass/volume)on 06-12-2022 Calcium [Mass/Vol] 8.9 mg/dL 8.5-10.1 [facility] Work Phone: Serum or plasma creatinine m easurement (mass/volume)on 06-12-2022 Creatinine [Mass/Vol] 0.71 mg/dL 0.55-1.02 [facility] Work Phone: Comment on above: The validity of the calculated GFR & GFRAA in patients over 70 years has not been determined. Clinical correlation is essential. Serum or plasma phenytoin me asurement (mass/volume)on 06-12-2022 Phenytoin [Mass/Vol] 13.3 mL 10.0-20.0 [facility] Work Phone: Serum or plasma urea nitroge n measurement (mass/volume)on 06-12-2022 Urea nitrogen [Mass/Vol] 23 mg/dL 7-18 [facility] Work Phone: Thin prep Papanicolaou smear with manual screeningon 06-12-2022 Thin prep Papanicolaou smear with manual screening 17 U/L 15-37 [facility] Work Phone: Thin prep Papanicolaou smear with manual screening 5 5-15 [facility] Work Phone: Absolute lymphocyte counton 03-20-2022 Lymphocytes Auto (Unsp spec) [#/Vol] 2.29 10*3/uL 0.83-4.51 [facility] Work Phone: Basophil percentageon 2021 Basophils/100 WBC (Bld) 0.9 % 0-1 [facility] Work Phone: Bilirubin [Mass/Vol] 0.30 mg/dL 0.20-1.00 [facility] Work Phone: Comment on above: For patients on eltr ombopag therapy, use of [place] TBIL is not recommended. Chloride [Moles/Vol] 106 mmol/L 98-107 [facility]: Eosinophils/100 WBC (Bld) 1.5 % 0-5 [facility] Work Phone: Glucose [Mass/Vol] 80 mg/dL 74-106 [facility]: Neutrophils (Bld) [#/Vol] 3.4 10*3/uL 2.0-7.7 [facility] Work Phone: Neutrophils/100 WBC (Bld) 51.9 % 47-70 [facility] Work Phone: Potassium [Moles/Vol] 4.2 mmol/L 3.5-5.1 [facility] Work Phone: Protein [Mass/Vol] 6.4 g/dL 6.4-8.2 [facility] Work Phone: Sodium [Moles/Vol] 140 mmol/L 136-145 [facility] Work Phone: WBC (Bld) [#/Vol] 6.5 10*3/uL 4.4-11.0 [facility] Work Phone: Blood erythrocytes count (nu mber/volume)on 03-20-2022 RBC (Bld) [#/Vol] 3.89 10*6/uL 4.2-5.4 [facility] Work [facility]: Blood hemoglobin measurement (mass/volume)on 03-20-2022 Hemoglobin (Bld) [Mass/Vol] 12.5 g/dL 12.0-15.0 [facility] Work Phone: Blood lymphocytes/100 leukoc yteson 03-20-2022 Lymphocytes/100 WBC (Bld) 35.1 % 19-41 [facility] Work Phone: Blood monocytes/100 leukocyt eson 03-20-2022 Monocytes/100 WBC (Bld) 10.1 % 0-10 [facility] Work Phone: Blood platelet mean volumeon 03-20-2022 Platelet mean volume (Bld) [Entitic vol] 11.9 fL 6.2-12.0 [facility] Work Phone: Determination of erythrocyte mean corpuscular volume (MCV)on 03-20-2022 MCV (RBC) [Entitic vol] 97.4 fL 81-99 [facility] Work Phone: Hematocrit Auto (Bld) [Volum e fraction]on 03-20-2022 Hematocrit (Bld) [Volume fraction] 37.9 % 37-47 [facility] Work Phone: Laboratory - Chemistry and C hemistry - challengeon 03-20-2022 ALP [Catalytic activity/Vol] 79 U/L 45-117 [facility] Work Phone: ALT [Catalytic activity/Vol] 16 U/L 13-56 [facility] Work Phone: CO2 [Moles/Vol] 27.0 mmol/L 21.0-32.0 [facility] Work Phone: Globulin (S) [Mass/Vol] 3.4 g/dL 2.2-4.2 [facility] Work Phone: Urea nitrogen/Creatinine [Mass ratio] 25.4 mg/mg 10-20 [facility] Work Phone: Laboratory - Hematology and Cell countson 03-20-2022 Erythrocyte distribution width (RBC) [Entitic vol] 45.1 fL 35.1-43.9 [facility] Work Phone: Erythrocyte distribution width (RBC) [Ratio] 12.6 % 11.6-14.6 [facility] Work Phone: Immature granulocytes/100 WBC (Bld) 0.500 % 0.0-0.9 [facility] Work Phone: Comment on above: IG% - Immature Granu locytes (promyelocytes, myelocytes and metamyelocytes) > 1% indicates that a LEFT SHIFT is Present. MCH (RBC) [Entitic mass] 32.1 pg 27.0-32.0 [facility] Work Phone: Nucleated RBC/100 WBC (Bld) [Ratio] 0 % 0-5 [facility] Work Phone: MCHC Auto (RBC) [Mass/Vol]on 03-20-2022 MCHC (RBC) [Mass/Vol] 33.0 g/dL 32-36 [facility] Work Phone: No Panel Informationon 03-20 Estimated GFR (MDRD) Amer 111 mL/min >60 [facility] Work Phone: Comment on above: GFR Calc Estimated GFR (MDRD) Non-Af Amer 91 mL/min >60 [facility] Work Phone: Comment on above: Non- GFR Calc Valproic Acid (Depakene) Level 134 ug/mL 50-100 [facility] Work Phone: Platelets bldon 03-20-2022 Platelets (Bld) [#/Vol] 173 10*3/uL 150-450 [facility] Work Phone: Serum or plasma albumin jacob urement (mass/volume)on 03-20-2022 Albumin [Mass/Vol] 3.0 g/dL 3.2-5.0 [facility] Work Phone: Serum or plasma albumin/glob ulin mass ratioon 03-20-2022 Albumin/Globulin [Mass ratio] 0.9 {ratio} 0.9-2.4 [facility] Work Phone: Serum or plasma calcium jacob urement (mass/volume)on 03-20-2022 Calcium [Mass/Vol] 9.1 mg/dL 8.5-10.1 [facility] Work Phone: Serum or plasma creatinine m easurement (mass/volume)on 03-20-2022 Creatinine [Mass/Vol] 0.67 mg/dL 0.55-1.02 [facility] Work Phone: Comment on above: The validity of the calculated GFR & GFRAA in patients over 70 years has not been determined. Clinical correlation is essential. Serum or plasma phenytoin me asurement (mass/volume)on 03-20-2022 Phenytoin [Mass/Vol] 12.7 mL 10.0-20.0 [facility] Work Phone: Serum or plasma urea nitroge n measurement (mass/volume)on 03-20-2022 Urea nitrogen [Mass/Vol] 17 mg/dL 7-18 [facility] Work Phone: Thin prep Papanicolaou smear with manual screeningon 03-20-2022 Thin prep Papanicolaou smear with manual screening 20 U/L 15-37 [facility] Work Phone: Thin prep Papanicolaou smear with manual screening 7 5-15 [facility] Work Phone: Absolute lymphocyte counton 12-26-2021 Lymphocytes Auto (Unsp spec) [#/Vol] 2.25 10*3/uL 0.83-4.51 [facility] Work Phone: Basophil percentageon 2021 Basophils/100 WBC (Bld) 0.6 % 0-1 [facility] Work Phone: Bilirubin [Mass/Vol] 0.40 mg/dL 0.20-1.00 [facility] Work Phone: Comment on above: For patients on eltr ombopag therapy, use of [place] TBIL is not recommended. Chloride [Moles/Vol] 107 mmol/L 98-107 [facility] Work Phone: Eosinophils/100 WBC (Bld) 1.3 % 0-5 [facility] Work Phone: Glucose [Mass/Vol] 79 mg/dL 74-106 [facility] Work Phone: Neutrophils (Bld) [#/Vol] 3.2 10*3/uL 2.0-7.7 [facility] Work Phone: Neutrophils/100 WBC (Bld) 50.0 % 47-70 [facility] Work Phone: Potassium [Moles/Vol] 4.3 mmol/L 3.5-5.1 [facility] Work Phone: Protein [Mass/Vol] 6.1 g/dL 6.4-8.2 [facility] Work Phone: Sodium [Moles/Vol] 140 mmol/L 136-145 [facility] Work Phone: WBC (Bld) [#/Vol] 6.4 10*3/uL 4.4-11.0 [facility] Work Phone: Blood erythrocytes count (nu mber/volume)on 12-26-2021 RBC (Bld) [#/Vol] 3.63 10*6/uL 4.2-5.4 [facility] Work Phone: Blood hemoglobin measurement (mass/volume)on 12-26-2021 Hemoglobin (Bld) [Mass/Vol] 12.3 g/dL 12.0-15.0 [facility] Work Phone: Blood lymphocytes/100 leukoc yteson 12-26-2021 Lymphocytes/100 WBC (Bld) 35.4 % 19-41 [facility] Work Phone: Blood monocytes/100 leukocyt eson 12-26-2021 Monocytes/100 WBC (Bld) 12.4 % 0-10 [facility] Work Phone: Blood platelet mean volumeon 12-26-2021 Platelet mean volume (Bld) [Entitic vol] 11.6 fL 6.2-12.0 [facility] Work Phone: Determination of erythrocyte mean corpuscular volume (MCV)on 12-26-2021 MCV (RBC) [Entitic vol] 98.1 fL 81-99 [facility] Work Phone: Hematocrit Auto (Bld) [Volum e fraction]on 12-26-2021 Hematocrit (Bld) [Volume fraction] 35.6 % 37-47 [facility] Work Phone: Laboratory - Chemistry and C hemistry - challengeon 12-26-2021 ALP [Catalytic activity/Vol] 75 U/L 45-117 [facility] Work Phone: ALT [Catalytic activity/Vol] 12 U/L 13-56 [facility] Work Phone: CO2 [Moles/Vol] 28.0 mmol/L 21.0-32.0 [facility] Work Phone: Globulin (S) [Mass/Vol] 3.1 g/dL 2.2-4.2 [facility] Work Phone: Urea nitrogen/Creatinine [Mass ratio] 26.0 mg/mg 10-20 [facility] Work Phone: Laboratory - Hematology and Cell countson 12-26-2021 Erythrocyte distribution width (RBC) [Entitic vol] 44.0 fL 35.1-43.9 [facility] Work Phone: Erythrocyte distribution width (RBC) [Ratio] 12.0 % 11.6-14.6 [facility] Work Phone: Immature granulocytes/100 WBC (Bld) 0.300 % 0.0-0.9 [facility] Work Phone: Comment on above: IG% - Immature Granu locytes (promyelocytes, myelocytes and metamyelocytes) > 1% indicates that a LEFT SHIFT is Present. MCH (RBC) [Entitic mass] 33.9 pg 27.0-32.0 [facility] Work Phone: Nucleated RBC/100 WBC (Bld) [Ratio] 0 % 0-5 [facility] Work Phone: MCHC Auto (RBC) [Mass/Vol]on 12-26-2021 MCHC (RBC) [Mass/Vol] 34.6 g/dL 32-36 [facility] Work Phone: No Panel Informationon 12-26 Estimated GFR (MDRD) Amer 107 mL/min >60 [facility] Work Phone: Comment on above: GFR Calc Estimated GFR (MDRD) Non-Af Amer 88 mL/min >60 [facility] Work Phone: Comment on above: Non- GFR Calc Valproic Acid (Depakene) Level 101 ug/mL 50-100 [facility] Work Phone: Platelets bldon 12-26-2021 Platelets (Bld) [#/Vol] 170 10*3/uL 150-450 [facility] Work Phone: Serum or plasma albumin jacob urement (mass/volume)on 12-26-2021 Albumin [Mass/Vol] 3.0 g/dL 3.2-5.0 [facility] Work Phone: Serum or plasma albumin/glob ulin mass ratioon 12-26-2021 Albumin/Globulin [Mass ratio] 1.0 {ratio} 0.9-2.4 [facility] Work Phone: Serum or plasma calcium jacob urement (mass/volume)on 12-26-2021 Calcium [Mass/Vol] 9.0 mg/dL 8.5-10.1 [facility] Work Phone: Serum or plasma creatinine m easurement (mass/volume)on 12-26-2021 Creatinine [Mass/Vol] 0.69 mg/dL 0.55-1.02 [facility] Work Phone: Comment on above: The validity of the calculated GFR & GFRAA in patients over 70 years has not been determined. Clinical correlation is essential. Serum or plasma phenytoin me asurement (mass/volume)on 12-26-2021 Phenytoin [Mass/Vol] 10.5 mL 10.0-20.0 [facility] Work Phone: Serum or plasma urea nitroge n measurement (mass/volume)on 12-26-2021 Urea nitrogen [Mass/Vol] 18 mg/dL 7-18 [facility] Work Phone: Thin prep Papanicolaou smear with manual screeningon 12-26-2021 Thin prep Papanicolaou smear with manual screening 19 U/L 15-37 [facility] Work Phone: Thin prep Papanicolaou smear with manual screening 5 5-15 [facility] Work Phone: Absolute lymphocyte counton 12-21-2021 Lymphocytes Auto (Unsp spec) [#/Vol] 2.13 10*3/uL 0.83-4.51 [facility] Work Phone: Basophil percentageon 2021 Basophils/100 WBC (Bld) 0.7 % 0-1 [facility] Work Phone: Bilirubin [Mass/Vol] 0.40 mg/dL 0.20-1.00 [facility] Work Phone: Comment on above: For patients on eltr ombopag therapy, use of [place] TBIL is not recommended. Chloride [Moles/Vol] 106 mmol/L 98-107 [facility] Work Phone: Eosinophils/100 WBC (Bld) 1.1 % 0-5 [facility] Work Phone: Glucose [Mass/Vol] 73 mg/dL 74-106 [facility] Work Phone: Neutrophils (Bld) [#/Vol] 2.7 10*3/uL 2.0-7.7 [facility] Work Phone: Neutrophils/100 WBC (Bld) 48.2 % 47-70 [facility] Work Phone: Potassium [Moles/Vol] 4.2 mmol/L 3.5-5.1 [facility] Work Phone: Protein [Mass/Vol] 6.0 g/dL 6.4-8.2 [facility] Work Phone: Sodium [Moles/Vol] 140 mmol/L 136-145 [facility] Work Phone: WBC (Bld) [#/Vol] 5.6 10*3/uL 4.4-11.0 [facility] Work Phone: Blood erythrocytes count (nu mber/volume)on 12-21-2021 RBC (Bld) [#/Vol] 3.59 10*6/uL 4.2-5.4 [facility] Work Phone: Blood hemoglobin measurement (mass/volume)on 12-21-2021 Hemoglobin (Bld) [Mass/Vol] 11.7 g/dL 12.0-15.0 [facility] Work Phone: Blood lymphocytes/100 leukoc yteson 12-21-2021 Lymphocytes/100 WBC (Bld) 37.9 % 19-41 [facility] Work Phone: Blood monocytes/100 leukocyt eson 12-21-2021 Monocytes/100 WBC (Bld) 11.7 % 0-10 [facility] Work Phone: Blood platelet mean volumeon 12-21-2021 Platelet mean volume (Bld) [Entitic vol] 11.5 fL 6.2-12.0 [facility] Work Phone: Determination of erythrocyte mean corpuscular volume (MCV)on 12-21-2021 MCV (RBC) [Entitic vol] 97.5 fL 81-99 [facility] Work Phone: Hematocrit Auto (Bld) [Volum e fraction]on 12-21-2021 Hematocrit (Bld) [Volume fraction] 35.0 % 37-47 [facility] Work Phone: Laboratory - Chemistry and C hemistry - challengeon 12-21-2021 ALP [Catalytic activity/Vol] 65 U/L 45-117 [facility] Work Phone: ALT [Catalytic activity/Vol] 13 U/L 13-56 [facility] Work Phone: CO2 [Moles/Vol] 28.0 mmol/L 21.0-32.0 [facility] Work Phone: Globulin (S) [Mass/Vol] 3.2 g/dL 2.2-4.2 [facility] Work Phone: Urea nitrogen/Creatinine [Mass ratio] 17.9 mg/mg 10-20 [facility] Work Phone: Laboratory - Hematology and Cell countson 12-21-2021 Erythrocyte distribution width (RBC) [Entitic vol] 43.6 fL 35.1-43.9 [facility] Work Phone: Erythrocyte distribution width (RBC) [Ratio] 12.0 % 11.6-14.6 [facility] Work Phone: Immature granulocytes/100 WBC (Bld) 0.400 % 0.0-0.9 [facility] Work Phone: Comment on above: IG% - Immature Granu locytes (promyelocytes, myelocytes and metamyelocytes) > 1% indicates that a LEFT SHIFT is Present. MCH (RBC) [Entitic mass] 32.6 pg 27.0-32.0 [facility] Work Phone: Nucleated RBC/100 WBC (Bld) [Ratio] 0 % 0-5 [facility] Work Phone: MCHC Auto (RBC) [Mass/Vol]on 12-21-2021 MCHC (RBC) [Mass/Vol] 33.4 g/dL 32-36 [facility] Work Phone: No Panel Informationon 12-21 Estimated GFR (MDRD) Amer 111 mL/min >60 [facility] Work Phone: Comment on above: GFR Calc Estimated GFR (MDRD) Non-Af Amer 91 mL/min >60 [facility] Work Phone: Comment on above: Non- GFR Calc Miscellaneous Test See comment [facility]: Comment on above: TEST RESULT UNITS RE F INTERVALEthosuximide(Zarontin),Serum 53 ug/mL 40-100 Detection Limit = 10 TESTING PERFORMED AT [facility]. ORIGINAL REPORT ON FILE IN LAB CONTAINS ADDITIONAL TEST SITE INFORMATION. Platelets bldon 12-21-2021 Platelets (Bld) [#/Vol] 169 10*3/uL 150-450 [facility] Work Phone: Serum or plasma albumin jacob urement (mass/volume)on 12-21-2021 Albumin [Mass/Vol] 2.8 g/dL 3.2-5.0 [facility] Work Phone: Serum or plasma albumin/glob ulin mass ratioon 12-21-2021 Albumin/Globulin [Mass ratio] 0.9 {ratio} 0.9-2.4 [facility] Work Phone: Serum or plasma calcium jacob urement (mass/volume)on 12-21-2021 Calcium [Mass/Vol] 8.9 mg/dL 8.5-10.1 [facility] Work Phone: Serum or plasma creatinine m easurement (mass/volume)on 12-21-2021 Creatinine [Mass/Vol] 0.67 mg/dL 0.55-1.02 [facility] Work Phone: Comment on above: The validity of the calculated GFR & GFRAA in patients over 70 years has not been determined. Clinical correlation is essential. Serum or plasma phenytoin me asurement (mass/volume)on 12-21-2021 Phenytoin [Mass/Vol] 10.7 mL 10.0-20.0 [facility] Work Phone: Serum or plasma urea nitroge n measurement (mass/volume)on 12-21-2021 Urea nitrogen [Mass/Vol] 12 mg/dL 7-18 [facility] Work Phone: Thin prep Papanicolaou smear with manual screeningon 12-21-2021 Thin prep Papanicolaou smear with manual screening 17 U/L 15-37 [facility] Work Phone: Thin prep Papanicolaou smear with manual screening 6 5-15 [facility] Work Phone: No Panel Informationon 11-23 Thyroid Stimulating Hormone (TSH) 2.89 uIU/mL 0.358-3.74 [facility] Work Phone: No Panel Informationon 10-26 Valproic Acid (Depakene) Level 76 ug/mL 50-100 [facility] Work Phone: Serum or plasma phenytoin me asurement (mass/volume)on 10-26-2021 Phenytoin [Mass/Vol] 14.0 mL 10.0-20.0 [facility] Work Phone: Absolute lymphocyte counton 10-03-2021 Lymphocytes Auto (Unsp spec) [#/Vol] 3.18 10*3/uL 0.83-4.51 [facility] Work Phone: Basophil percentageon 2020 Bilirubin [Mass/Vol] 0.40 mg/dL 0.20-1.00 [facility] Work Phone: Comment on above: For patients on eltr ombopag therapy, use of Dimension [place] TBIL is not recommended. Chloride [Moles/Vol] 106 mmol/L 98-107 [facility] Work Phone: Eosinophils/100 WBC (Bld) 1.7 % 0-5 [facility] Work Phone: Glucose [Mass/Vol] 73 mg/dL 74-106 [facility] Work Phone: Comment on above: Please note revised GLUCOSE reference range effective 2017. Neutrophils (Bld) [#/Vol] 2.4 10*3/uL 2.0-7.7 [facility] Work Phone: Potassium [Moles/Vol] 4.1 mmol/L 3.5-5.1 [facility] Work Phone: Protein [Mass/Vol] 6.4 g/dL 6.4-8.2 [facility] Work Phone: Sodium [Moles/Vol] 140 mmol/L 136-145 [facility] Work Phone: WBC (Bld) [#/Vol] 6.4 10*3/uL 4.4-11.0 [facility] Work Phone: Blood erythrocytes count (nu mber/volume)on 10-03-2021 RBC (Bld) [#/Vol] 3.71 10*6/uL 4.2-5.4 [facility] Work Phone: Blood hemoglobin measurement (mass/volume)on 10-03-2021 Hemoglobin (Bld) [Mass/Vol] 12.5 g/dL 12.0-15.0 [facility] Work Phone: Blood lymphocytes/100 leukoc yteson 10-03-2021 Lymphocytes/100 WBC (Bld) 49.5 % 19-41 [facility] Work Phone: Blood monocytes/100 leukocyt eson 10-03-2021 Monocytes/100 WBC (Bld) 11.0 % 0-10 [facility] Work Phone: Blood platelet mean volumeon 10-03-2021 Platelet mean volume (Bld) [Entitic vol] 12.0 fL 6.2-12.0 [facility] Work Phone: Determination of erythrocyte mean corpuscular volume (MCV)on 10-03-2021 MCV (RBC) [Entitic vol] 97.0 fL 81-99 [facility] Work Phone: Hematocrit Auto (Bld) [Volum e fraction]on 10-03-2021 Hematocrit (Bld) [Volume fraction] 36.0 % 37-47 [facility] Work Phone: Laboratory - Chemistry and C hemistry - challengeon 10-03-2021 ALP [Catalytic activity/Vol] 80 U/L 45-117 [facility] Work Phone: ALT [Catalytic activity/Vol] 21 U/L 13-56 [facility] Work Phone: CO2 [Moles/Vol] 28.0 mmol/L 21.0-32.0 [facility] Work Phone: Globulin (S) [Mass/Vol] 3.4 g/dL 2.2-4.2 [facility] Work Phone: [phone] Urea nitrogen/Creatinine [Mass ratio] 19.7 mg/mg 10-20 [facility] Work Phone: Laboratory - Hematology and Cell countson 10-03-2021 Basophils/100 WBC (Unsp spec) 0.6 % 0-1 [facility] Work Phone: Erythrocyte distribution width (RBC) [Entitic vol] 46.0 fL 35.1-43.9 [facility] Work Phone: Erythrocyte distribution width (RBC) [Ratio] 12.7 % 11.6-14.6 [facility] Work Phone: Immature granulocytes/100 WBC (Bld) 0.300 % 0.0-0.9 [facility] Work Phone: Comment on above: IG% - Immature Granu locytes (promyelocytes, myelocytes and metamyelocytes) > 1% indicates that a LEFT SHIFT is Present. MCH (RBC) [Entitic mass] 33.7 pg 27.0-32.0 [facility] Work Phone: Neutrophils/100 WBC (Bld) 36.9 % 47-70 [facility] Work Phone: [phone] Nucleated RBC/100 WBC (Bld) [Ratio] 0 % 0-5 [facility] Work Phone: MCHC Auto (RBC) [Mass/Vol]on 10-03-2021 MCHC (RBC) [Mass/Vol] 34.7 g/dL 32-36 [facility] Work Phone: No Panel Informationon 10-03 Estimated GFR (MDRD) Amer 95 mL/min >60 [facility] Work Phone: Comment on above: GFR Calc Estimated GFR (MDRD) Non-Af Amer 79 mL/min >60 [facility] Work Phone: Comment on above: Non- GFR Calc Valproic Acid (Depakene) Level 90 ug/mL 50-100 [facility] Work Phone: Platelets bldon 10-03-2021 Platelets (Bld) [#/Vol] 160 10*3/uL 150-450 [facility] Work Phone: Serum or plasma albumin jacob urement (mass/volume)on 10-03-2021 Albumin [Mass/Vol] 3.0 g/dL 3.2-5.0 [facility] Work Phone: Serum or plasma albumin/glob ulin mass ratioon 10-03-2021 Albumin/Globulin [Mass ratio] 0.9 {ratio} 0.9-2.4 [facility] Work Phone: Serum or plasma calcium jacob urement (mass/volume)on 10-03-2021 Calcium [Mass/Vol] 8.7 mg/dL 8.5-10.1 [facility] Work Phone: Serum or plasma creatinine m easurement (mass/volume)on 10-03-2021 Creatinine [Mass/Vol] 0.76 mg/dL 0.55-1.02 [facility] Work Phone: Comment on above: The validity of the calculated GFR & GFRAA in patients over 70 years has not been determined. Clinical correlation is essential. Serum or plasma phenytoin me asurement (mass/volume)on 10-03-2021 Phenytoin [Mass/Vol] 14.5 mL 10.0-20.0 [facility] Work Phone: Serum or plasma urea nitroge n measurement (mass/volume)on 10-03-2021 Urea nitrogen [Mass/Vol] 15 mg/dL 7-18 [facility] Work Phone: Thin prep Papanicolaou smear with manual screeningon 10-03-2021 Thin prep Papanicolaou smear with manual screening 19 U/L 15-37 [facility] Work Phone: Thin prep Papanicolaou smear with manual screening 6 5-15 [facility] Work Phone: RF Swallowing Function w/ Vi deoon 01-22-2019 RF Swallowing Function w/ Video Patient Name: KATHERYN CHINO Fluoroscopy Exam Date/Time 01/22/2019 13:50:00 EDT Exam RF Swallowing Function w/ Video Ordering Physician DO MENDOZA EUGENE F. Accession Number [id number] [facility]4 Codes 82247 () Reason For Exam Dysphagia Report CLINICAL [...] Transcribed Date and Time: 01/22/2019 4:28 Normal [facility] TRIMMER MACHINE OPERATOR Modified Barium Swallow Studyon 01-22-2019 TRIMMER MACHINE OPERATOR Modified Barium Swallow Study Patient Name: KATHERYN CHINO Fluoroscopy Exam Date/Time 01/22/2019 13:50:00 EDT Exam TRIMMER MACHINE OPERATOR Modified Barium Swallow Study Ordering Physician DO MENDOZA EUGENE F. Accession Number [id number] Reason For Exam Dysphagia, oropharyngeal phase Report [...] 40mg 2x/day). Patient is a resident of [facility] due to decreased ability to [...] Radiologist: Dr. Antonio Carlos MD Radiologist Physician [employer]: Not applicable Report Dictated on Final Dictating Physician: OLIVIA DUNCAN, DEB/TRIMMER MACHINE OPERATORJACKI Signed Date and Time: 01/22/2019 4:43 pm Signed by: OLIVIA DUNCAN CCC/JACKI MACKENZIE Transcribed Date and Time: 01/23/2019 6:58 Normal [facility] TRIMMER MACHINE OPERATOR Modified Barium Swallow Study Patient Name: KATHERYN CHINO Fluoroscopy Exam Date/Time 01/22/2019 13:50:00 EDT Exam TRIMMER MACHINE OPERATOR Modified Barium Swallow Study Ordering Physician DO MENDOZA EUGENE F. Accession Number [id number] Reason For Exam Dysphagia, oropharyngeal phase Addendum This exam in the patient's exam history was incorrectly coded to this patient. The billing and report corrections were made on accession number [id number] Final Addendum Signed Date and Time: 01/23/2019 9:55 am Signed by: TAXICAB DRIVER, SYSTEM Transcribed Date and Time: 01/22/2019 4:46 [...] Report revised on 01/23/2019 09:55:55 EDT by TAXICAB DRIVER, SYSTEM Final Dictating Physician: MD CARLOS HARLAN Signed Date and Time: 01/22/2019 3:28 pm Signed by: MD CARLOS HARLAN Transcribed Date and Time: 01/22/2019 3:29 Normal [facility] MRI BRAIN W/O CONTRAST 13830 on 08-23-2018 MRI BRAIN W/O CONTRAST [id number] Performed at [facility] APPROVED BY: Hayes España MD EXAMINATION: MRI BRAIN W/O CONTRAST [id number] CLINICAL HISTORY: Epilepsy. Ataxia. History of seizure [...] changes throughout the supratentorial white matter. Normal [facility] Misc. Teston 08-12-2018 Misc. Test Result SEE BELOW Normal [facility] Comment on above: Result Comment: Etho suximide [...] Laboratory: Performed By: #### G OX #### [place] [address] Phenytoin, Freeon 08-09-2018 Phenytoin, Free SEE BELOW Normal [facility] Comment on above: Result Comment: Phen ytoin, Free 2.1 H 1.0-2.0 ug/mL Reference ranges and high/low indicator flags are provided as general guidelines only. The treating physician must determine appropriate target levels/dosing based on the specific clinical situation. This test was developed and its performance characteristics determined by [facility] [place] [facility] It has not been cleared or approved by the FDA. -[facility] is regulated under CLIA as qualified to perform high-complexity testing. This test is used for clinical purposes. It should not be regarded as investigational or for research. Performing Laboratory: [facility] [address] [place] [address] Performed By: #### P TNFX #### [place] [id number] Mis. Teston 08-08-2018 [facility] Order Code ETHOS Normal [facility] Comment on above: Performed By: #### G OX #### [facility] [address] [place] [address] Test Name ETHOSUXIMIDE Normal [facility] Comment on above: Performed By: #### G OX #### [facility] [address] [place] [address] Comprehensive Panelon 2017 Bilirubin [Mass/Vol] 0.3 mg/dL Normal 0.2-1.0 [facility] Comment on above: Performed By: #### P 14 #### [facility] [address] [place] [address] ALP [Catalytic activity/Vol] 103 U/L Normal 46-116 [facility] Comment on above: Performed By: #### P 14 #### [facility] [address] [place] [address] AST [Catalytic activity/Vol] 14 U/L Normal 9-37 [facility] Comment on above: Performed By: #### P 14 #### [facility] [address] [place] [address] Creatinine [Mass/Vol] 0.74 mg/dL Normal 0.51-0.95 [facility] Comment on above: Performed By: #### P 14 #### [facility] [address] [place] [address] Protein [Mass/Vol] 7.1 g/dL Normal 6.4-8.2 [facility] Comment on above: Performed By: #### P 14 #### [facility] [address] [place] [address] ALT [Catalytic activity/Vol] 18 U/L Normal 12-78 [facility] Comment on above: Performed By: #### P 14 #### [facility] [address] [place] [address] Albumin [Mass/Vol] 3.7 g/dL Normal 3.4-5.0 [facility] Comment on above: Performed By: #### P 14 #### [facility] [address] [place] [address] Anion gap [Moles/Vol] 12 mmol/L Normal 8-16 [facility] Comment on above: Performed By: #### P 14 #### [facility] [address] [place], [place] [address] CO2 [Moles/Vol] 28 mmol/L Normal 21-32 [facility] Comment on above: Performed By: #### P 14 #### [facility] [address] [place], [place] [address] Urea nitrogen [Mass/Vol] 11 mg/dL Normal 7-18 [facility] Comment on above: Performed By: #### P 14 #### [facility] [address] [place], [place] [address] Calcium [Mass/Vol] 9.1 mg/dL Normal 8.5-10.1 [facility] Comment on above: Performed By: #### P 14 #### [facility] [address] [place], [place] [address] Glucose [Mass/Vol] 71 mg/dL Normal 70-99 [facility] Comment on above: Performed By: #### P 14 #### [facility] [address] [place], [place] [address] Chloride [Moles/Vol] 105 mmol/L Normal 98-107 [facility] Comment on above: Performed By: #### P 14 #### [facility] [address] [place], [place] [address] Potassium [Moles/Vol] 4.8 mmol/L Normal 3.5-5.1 [facility] Comment on above: Performed By: #### P 14 #### [facility] [address] [place], [place] [address] Sodium [Moles/Vol] 140 mmol/L Normal 136-145 [facility] Comment on above: Performed By: #### P 14 #### [facility] [address] [place], [place] [address] Dannie Chua 08-07-2018 INR Coag (Bld) [Relative time] 13.0 mg/L Normal 10.0-20.0 [facility] Comment on above: Performed By: #### D AMY #### [address] [address] Hemogramon 08-07-2018 Erythrocyte distribution width (RBC) [Ratio] 12.9 % Normal 11.7-14.4 [facility] Comment on above: Performed By: #### C BC1 #### [facility] [address] [place] [address] Hematocrit (Bld) [Volume fraction] 43.8 % Normal 34.1-44.9 [facility] Comment on above: Performed By: #### C BC1 #### [facility] [address] [place] [address] Hemoglobin (Bld) [Mass/Vol] 14.4 g/dL Normal 11.2-15.7 [facility] Comment on above: Performed By: #### C BC1 #### [place] [address] MCH (RBC) [Entitic mass] 31.4 pg Normal 25.6-32.2 [facility] Comment on above: Performed By: #### C BC1 #### [facility] [address] [place] [address] MCHC (RBC) [Mass/Vol] 32.9 % Normal 31.6-34.8 [facility] Comment on above: Performed By: #### C BC1 #### [place] [address] MCV (RBC) [Entitic vol] 95.6 fL High 79.4-94.8 [facility] Comment on above: Performed By: #### C BC1 #### [facility] [address] [place] [address] Platelet mean volume (Bld) [Entitic vol] 11.7 fL Normal 9.4-12.3 [facility] Comment on above: Performed By: #### C BC1 #### [facility] [address] [place], [place] [address] Platelets (Bld) [#/Vol] 219 thou/cmm Normal 182-369 [facility] Comment on above: Performed By: #### C BC1 #### [place] [id number] RBC (Bld) [#/Vol] 4.58 mil/cmm Normal 3.93-5.22 [facility] Comment on above: Performed By: #### C BC1 #### [facility] [address] [place] [address] RDW SD 45.6 fl Normal 36.4-46.3 [facility] Comment on above: Performed By: #### C BC1 #### [facility] [address] [place] [id number] WBC (Bld) [#/Vol] 5.66 thou/cmm Normal 3.98-10.04 [facility] Comment on above: Performed By: #### C BC1 #### [place] [address] MDRD GFRon 08-07-2018 GFR/1.73 sq M predicted among non-blacks MDRD (S/P/Bld) [Vol rate/Area] mL/min/{1.73_m2} Normal >60mL/min/ 1.73m2 [facility] Comment on above: Result Comment: If t he patient is , multiply the result by 1.210. Performed By: #### G FR #### [place] [address] Valproic Acid,Ransom.on 2017 Valproic Acid,Ransom. 73 mg/L Normal 50-100 [facility] Comment on above: Performed By: #### V ALPR #### [place] [id number] Ammoniaon 06-06-2018 Ammonia mass conc (P) ug/dL Normal 9-30 [facility] Comment on above: Performed By: #### H EMDF, NH33, CMP3, MG3, VALP3, PTN3 #### [facility] [address] [place] [address] CT Head or Brain w/o Contras ton 06-06-2018 CT Head or Brain w/o Contrast Patient Name: KATHERYN CHINO CT Exam Date/Time 06/06/2018 17:12:[address] Head or Brain w/o Contrast Ordering Physician DWAYNE ROMAN DANIEL M Accession Number [id number] CPT4 Codes 11571 () Reason For Exam seizure, headache Report [...] Transcribed Date and Time: 06/06/2018 5:20 Normal [facility] Comp Metabolic Panelon 06-06 ALT enzyme act/vol 24 U/L Normal 13-69 [facility] Comment on above: Performed By: #### H EMDF, NH33, CMP3, MG3, VALP3, PTN3 #### [facility] [address] [place] [address] Calcium mass conc 10.1 mg/dL Normal 8.4-10.4 [facility] Comment on above: Performed By: #### H EMDF, NH33, CMP3, MG3, VALP3, PTN3 #### [facility] [address] [place] [address] Glucose mass conc 86 mg/dL Normal 70-100 [facility] Comment on above: Performed By: #### H EMDF, NH33, CMP3, MG3, VALP3, PTN3 #### [facility] [address] [place] [address] ALP enzyme act/vol 90 U/L Normal 38-126 [facility] Comment on above: Performed By: #### H EMDF, NH33, CMP3, MG3, VALP3, PTN3 #### [facility] [address] [place] [address] Anion gap molar conc 7 Normal [facility] Comment on above: Performed By: #### H EMDF, NH33, CMP3, MG3, VALP3, PTN3 #### [facility] [address] [place] [address] AST enzyme act/vol 23 U/L Normal 15-46 [facility] Comment on above: Performed By: #### H EMDF, NH33, CMP3, MG3, VALP3, PTN3 #### [facility] [address] [place] [address] Bilirubin mass conc 0.5 mg/dL Normal 0.2-1.3 [facility] Comment on above: Performed By: #### H EMDF, NH33, CMP3, MG3, VALP3, PTN3 #### [facility] [address] [place] [address] CO2 molar conc 29 mmol/L Normal 22-30 [facility] Comment on above: Performed By: #### H EMDF, NH33, CMP3, MG3, VALP3, PTN3 #### [facility] [address] [place] [address] Creatinine mass conc 0.62 mg/dL Normal 0.52-1.25 [facility] Comment on above: Performed By: #### H EMDF, NH33, CMP3, MG3, VALP3, PTN3 #### [facility] [address] [place] [address] GFR/1.73 sq M predicted among blacks MDRD vol rate/area (S/P/Bld) mL/min/{1.73_m2} Normal >60 [facility] Comment on above: Performed By: #### H EMDF, NH33, CMP3, MG3, VALP3, PTN3 #### [facility] [address] [place] [address] GFR/1.73 sq M predicted among non-blacks MDRD vol rate/area (S/P/Bld) mL/min/{1.73_m2} Normal >60 [facility] Comment on above: Result Comment: Sour ce- MDRD equation with creatinine calibration to IDMS(NKDEP) eGFR not recommended for drug dose adjustment Performed By: #### H EMDF, NH33, CMP3, MG3, VALP3, PTN3 #### [facility] [address] [place] [address] Protein mass conc 7.1 g/dL Normal 6.3-8.2 [facility] Comment on above: Performed By: #### H EMDF, NH33, CMP3, MG3, VALP3, PTN3 #### [facility] [address] [place] [address] Urea nitrogen mass conc 15 mg/dL Normal 7-20 [facility] Comment on above: Performed By: #### H EMDF, NH33, CMP3, MG3, VALP3, PTN3 #### [facility] [address] [place] [address] Potassium molar conc 4.7 mmol/L Normal 3.5-5.1 [facility] Comment on above: Performed By: #### H EMDF, NH33, CMP3, MG3, VALP3, PTN3 #### [facility] [address] [place] [address] Sodium molar conc 139 mmol/L Normal 137-145 [facility] Comment on above: Performed By: #### H EMDF, NH33, CMP3, MG3, VALP3, PTN3 #### [facility] [address] [place] [address] Albumin mass conc 4.5 g/dL Normal 3.5-5.0 [facility] Comment on above: Performed By: #### H EMDF, NH33, CMP3, MG3, VALP3, PTN3 #### [facility] [address] [place] [address] Chloride molar conc 103 mmol/L Normal 98-107 [facility] Comment on above: Performed By: #### H EMDF, NH33, CMP3, MG3, VALP3, PTN3 #### [facility] [address] [place] [address] Hemogram w/ Autodiffon 06-06 Abs Baso Cnt 0.1 10*3/uL Normal 0.0-0.2 [facility] Comment on above: Performed By: #### H EMDF, NH33, CMP3, MG3, VALP3, PTN3 #### [facility] [address] [place] [address] Abs Neutrophile Cnt 4.4 10*3/uL Normal 1.8-7.0 [facility] Comment on above: Performed By: #### H EMDF, NH33, CMP3, MG3, VALP3, PTN3 #### [facility] [address] [place] [address] Basophils/100 WBC (Bld) 1.0 % Normal 0.0-2.0 [facility] Comment on above: Performed By: #### H EMDF, NH33, CMP3, MG3, VALP3, PTN3 #### [place] [address] [place] [address] Eosinophils #/vol (Bld) 0.0 10*3/uL Normal 0.0-0.5 [facility] Comment on above: Performed By: #### H EMDF, NH33, CMP3, MG3, VALP3, PTN3 #### [facility] [address] [place] [address] Eosinophils/100 WBC (Bld) 0.4 % Low 1.0-6.0 [facility] Comment on above: Performed By: #### H EMDF, NH33, CMP3, MG3, VALP3, PTN3 #### [facility] [address] [place] [address] Erythrocyte distribution width Ratio (RBC) 12.8 % Normal 11.5-14.5 [facility] Comment on above: Performed By: #### H EMDF, NH33, CMP3, MG3, VALP3, PTN3 #### [place] [address] [place] [address] Granulocytes/100 WBC (Bld) 61.3 % Normal 40.0-80.0 [facility] Comment on above: Performed By: #### H EMDF, NH33, CMP3, MG3, VALP3, PTN3 #### [facility] [address] [place] [address] Hematocrit Volume Fraction (Bld) 40.5 % Normal 35.0-47.0 [facility] Comment on above: Performed By: #### H EMDF, NH33, CMP3, MG3, VALP3, PTN3 #### [facility] [address] [place] [address] Hemoglobin mass conc (Bld) 14.1 g/dL Normal 11.7-16.0 [facility] Comment on above: Performed By: #### H EMDF, NH33, CMP3, MG3, VALP3, PTN3 #### [place] [address] [place] [address] Lymphocytes #/vol (Bld) 2.1 10*3/uL Normal 1.0-4.3 [facility] Comment on above: Performed By: #### H EMDF, NH33, CMP3, MG3, VALP3, PTN3 #### [facility] [address] [place] [address] Lymphocytes/100 WBC (Bld) 28.8 % Normal 20.0-40.0 [facility] Comment on above: Performed By: #### H EMDF, NH33, CMP3, MG3, VALP3, PTN3 #### [facility] [address] [place] [address] MCH Entitic mass (RBC) 32.3 pg Normal 26.0-34.0 [facility] Comment on above: Performed By: #### H EMDF, NH33, CMP3, MG3, VALP3, PTN3 #### [facility] [address] [place] [address] MCHC mass conc (RBC) 34.8 % Normal 32.0-36.0 [facility] Comment on above: Performed By: #### H EMDF, NH33, CMP3, MG3, VALP3, PTN3 #### [facility] [address] [place] [address] MCV Entitic volume (RBC) 93.0 fL Normal 79.0-98.0 [facility] Comment on above: Performed By: #### H EMDF, NH33, CMP3, MG3, VALP3, PTN3 #### [facility] [address] [place] [address] Monocytes #/vol (Bld) 0.6 10*3/uL Normal 0.0-0.8 [facility] Comment on above: Performed By: #### H EMDF, NH33, CMP3, MG3, VALP3, PTN3 #### [facility] [address] [place] [address] Monocytes/100 WBC (Bld) 8.5 % Normal 2.0-10.0 [facility] Comment on above: Performed By: #### H EMDF, NH33, CMP3, MG3, VALP3, PTN3 #### [facility] [address] [place] [address] Platelet mean volume Entitic volume (Bld) 10.1 fL Normal 7.4-10.4 [facility] Comment on above: Performed By: #### H EMDF, NH33, CMP3, MG3, VALP3, PTN3 #### [facility] [address] [place] [address] Platelets #/vol (Bld) 195 10*3/uL Normal 140-440 [facility] Comment on above: Performed By: #### H EMDF, NH33, CMP3, MG3, VALP3, PTN3 #### [facility] [address] [place] [address] RBC #/vol (Bld) 4.36 10*6/uL Normal 3.80-5.20 [facility] Comment on above: Performed By: #### H EMDF, NH33, CMP3, MG3, VALP3, PTN3 #### [facility] [address] [place] [address] WBC #/vol (Bld) 7.2 10*3/uL Normal 3.6-10.7 [facility] Comment on above: Performed By: #### H EMDF, NH33, CMP3, MG3, VALP3, PTN3 #### [facility] [address] [place] [address] Magnesiumon 06-06-2018 Magnesium mass conc 2.0 mg/dL Normal 1.6-2.3 [facility] Comment on above: Performed By: #### H EMDF, NH33, CMP3, MG3, VALP3, PTN3 #### [facility] [address] [place] [address] Phenytoin, Totalon 8 Phenytoin, Total 6.8 ug/mL Low 10.0-20.0 [facility] Comment on above: Performed By: #### H EMDF, NH33, CMP3, MG3, VALP3, PTN3 #### [facility] [address] [place] [address] Valproic Acidon 06-06-2018 Protein mass conc 38 ug/mL Low 50-120 [facility] Comment on above: Performed By: #### H EMDF, NH33, CMP3, MG3, VALP3, PTN3 #### [facility] [employer] [facility] [address] [place] [address] Vital Signs Date Time Vital Sign Value Performing Clinician Facility 02-25-2025 14:06-0400 Body mass index (BMI) [Ratio] 32.74 kg/m2 Lolita Cristobal PA-C Work Phone: [facility] 02-25-2025 14:06-0400 Body weight 81.19 kg Lolita Cristobal PA-C Work Phone: [facility] 02-25-2025 14:06-0400 Diastolic blood pressure 67 mm[Hg] Lolita Cristobal PA-C Work Phone: [facility] 02-25-2025 14:06-0400 Heart rate 71 /min Lolita Cristobal PA-C Work Phone: [facility] 02-25-2025 14:06-0400 SaO2% (BldA) [Mass fraction] 96 % Lolita Cristobal PA-C Work Phone: [facility] 02-25-2025 14:06-0400 Systolic blood pressure 142 mm[Hg] Lolita Jain PA-C Work Phone: [facility] 01-15-2025 08:01-0400 Diastolic blood pressure 73 mm[Hg] Jayant Jimenez MD Work Phone: [facility] 01-15-2025 08:01-0400 Heart rate 76 /min Jayant Jimenez MD Work Phone: [facility] 01-15-2025 08:01-0400 Systolic blood pressure 135 mm[Hg] Jayant Jimenez MD Work Phone: [facility] 01-15-2025 07:54-0400 Body height 157.5 cm Jayant Jimenez MD Work Phone: [facility] 01-15-2025 07:54-0400 Body mass index (BMI) [Ratio] 30.36 kg/m2 Jayant Jimeenz MD Work Phone: [facility] 01-15-2025 07:54-0400 Body weight 75.3 kg Jayant Jimenez MD Work Phone: [facility] 01-15-2025 07:54-0400 Respiratory rate 18 /min Jayant Jimenez MD Work Phone: [facility] 12-08-2024 07:28-0500 Body temperature 98.01 [degF] Miriam Hennessy DO Work Phone: [facility] 12-08-2024 07:28-0500 Diastolic blood pressure 69 mm[Hg] Miriam Hennessy DO Work Phone: [facility] [employer] 12-08-2024 07:28-0500 Heart rate 70 /min Miriam Hennessy DO Work Phone: [facility] [employer] 12-08-2024 07:28-0500 Respiratory rate 18 /min Miriam Hennessy DO Work Phone: [facility] [employer] 12-08-2024 07:28-0500 SaO2% (BldA) [Mass fraction] 100 % Miriam Hennessy DO Work Phone: [facility] 12-08-2024 07:28-0500 Systolic blood pressure 136 mm[Hg] Miriam Hennessy DO Work Phone: [facility] 12-03-2024 20:24-0500 Body height 160 cm Miriam Hennessy DO Work Phone: [facility] 12-03-2024 20:24-0500 Body mass index (BMI) [Ratio] 31.87 kg/m2 Miriam Hennessy DO Work Phone: [facility] 12-03-2024 20:24-0500 Body weight 81.6 kg Miriam Hennessy DO Work Phone: [facility] 12-03-2024 16:00-0500 Diastolic blood pressure 66 mm[Hg] Todd Velasquez MD [facility] 12-03-2024 16:00-0500 Heart rate 89 /min Todd Velasquez MD [facility] 12-03-2024 16:00-0500 Inhaled oxygen flow rate 4 L/min Todd Velasquez MD [facility] 12-03-2024 16:00-0500 Respiratory rate 31 /min Todd Velasquez MD [facility] 12-03-2024 16:00-0500 SaO2% (BldA) [Mass fraction] 96 % Todd Velasquez MD [facility] 12-03-2024 16:00-0500 Systolic blood pressure 95 mm[Hg] Todd Velasquez MD [facility] 12-03-2024 13:00-0500 Body temperature 98.2 [degF] Todd Velasquez MD [facility] 12-03-2024 09:32-0500 Body height 162.56 cm Todd Velasquez MD [facility] 12-03-2024 09:32-0500 Body mass index (BMI) [Ratio] 34 kg/m2 Todd Velasquez MD [facility] 12-03-2024 09:32-0500 Body weight 89.9 kg Todd Velasquez MD [facility] 11-26-2024 10:56-0500 Body height 157.5 cm [facility] 09-24-2024 07:55-0500 Body height 160 cm Jayant Jimenez MD Work Phone: [facility] 09-24-2024 07:55-0500 Body mass index (BMI) [Ratio] 31.89 kg/m2 Jayant Jimenez MD Work Phone: [facility] 09-24-2024 07:55-0500 Body weight 81.65 kg Jayant Jimenez MD Work Phone: [facility] 09-24-2024 07:55-0500 Diastolic blood pressure 81 mm[Hg] Jayant Jimenez MD Work Phone: [facility] 09-24-2024 07:55-0500 Heart rate 77 /min Jayant Jimenez MD Work Phone: [facility] 09-24-2024 07:55-0500 Respiratory rate 16 /min Jayant Jimenez MD Work Phone: [facility] 09-24-2024 07:55-0500 Systolic blood pressure 132 mm[Hg] Jayant Jimenez MD Work Phone: [facility] 09-18-2023 13:27-0500 Diastolic blood pressure 72 mm[Hg] [facility] 09-18-2023 13:27-0500 Heart rate 70 /min [facility] 09-18-2023 13:27-0500 Respiratory rate 20 /min [facility] 09-18-2023 13:27-0500 SaO2% (BldA) [Mass fraction] 94 % [facility] 09-18-2023 13:27-0500 Systolic blood pressure 141 mm[Hg] [facility] 09-18-2023 11:58-0500 Body height 162.56 cm [facility] 09-18-2023 11:58-0500 Body mass index (BMI) [Ratio] 33.7 kg/m2 [facility] 09-18-2023 11:58-0500 Body temperature 98.1 [degF] [facility] 09-18-2023 11:58-0500 Body weight 89 kg [facility] Encounters Encounter Date Encounter Type Care Provider Facility Start: 04-16-2025 End: 04-16-2025 Telephone encounter Lolita Jain PA-C Work Phone: Rheumatology Start: 04-06-2025 ambulatory Todd FOX Facili ty:[facility] Start: 04-06-2025 [facility]: 03-10-[facility]25 End: 03-10-[address] Todd Velasquez Sr. DO Work Phone: -[facility] Start: 03-10-2025 End: 03-10-2025 Departed Referred Todd Velasquez MD [facility] Start: 03-10-2025 End: 03-10-2025 ambulatory Todd FOX Facility:[facility] Start: 03-04-2025 ambulatory Todd FOX Facili ty:[facility] Start: 03-04-2025 [facility] Start: 02-27-2025 ambulatory Todd Velasquez Sr. Facili ty:[facility] Start: 02-27-2025 Registered Referred Todd Velasquez MD [facility] Start: 02-26-2025 End: 02-26-2025 ambulatory [facility] Start: 02-26-2025 End: 02-26-2025 Patient encounter procedure Guille Corona RPh [facility] Comment on above: SPP Osteoporosis [...] high-risk medication Start: 02-25-2025 End: 02-25-2025 ambulatory LOLITA JAIN Facility:[facility] Start: 02-18-2025 End: 02-18-2025 ambulatory Lolita Jain PA-C Work Phone: Rheumatology Start: 02-18-2025 End: 02-18-2025 E-mail encounter from caregiver Lolita Jain PA-C Work Phone: Rheumatology Start: 02-02-2025 End: 02-02-2025 ambulatory Todd Velasquez MD [facility] Work Phone: Start: 02-02-2025 End: 02-02-2025 Departed Referred Todd Velasquez MD [facility] Start: 02-02-2025 Registered Referred Todd Velasquez MD -[facility] Start: 02-02-2025 End: 02-02-2025 ambulatory Todd Velasquez Sr. Facility:[facility] Start: 01-28-2025 End: 01-28-2025 ambulatory Todd Velasquez MD [facility] Work Phone: Start: 01-28-2025 End: 01-28-2025 Departed Referred Todd Velasquez MD [facility] Start: 01-28-2025 Registered Referred Todd Velasquez MD -[facility] Start: 01-28-2025 End: 01-28-2025 ambulatory Todd FOX Facility:[facility] Start: 01-19-2025 End: 01-19-2025 ambulatory Todd Velasquez MD [facility] Work Phone: Start: 01-19-2025 End: 01-19-2025 Departed Referred Todd Velasquez MD [facility] Start: 01-19-2025 End: 01-19-2025 ambulatory Todd FOX Facility:[facility] Start: 01-16-2025 End: 01-19-2025 Telephone encounter Jayant Jimenez MD Work Phone: Neurology Comment on above: Medication Problem ( Lacosamide) Start: 01-15-2025 End: 01-15-2025 Patient encounter procedure Jayant Jimenez MD Work Phone: Neurology Epilepsy Comment on above: Intractable epilepsy without status epilepticus, unspecified epilepsy type (HCC); Osteoporosis without current pathological fracture, unspecified osteoporosis type Start: 01-15-2025 End: 01-15-2025 ambulatory ORVILLE FELIPE KELLY Facility:[facility] Start: 12-26-2024 End: 12-26-2024 ambulatory Todd Velasquez MD [facility] Work Phone: Start: 12-26-2024 End: 12-26-2024 Departed Referred [facility] Start: 12-26-2024 Registered Referred [facility] Start: 12-26-2024 End: 12-26-2024 ambulatory Todd FOX Facility:[facility] Start: 12-24-2024 End: 12-24-2024 Telephone encounter [...] 12-15-2024 End: 12-15-2024 ambulatory Todd Velasquez MD [facility] Work Phone: Start: 12-15-2024 End: 12-15-2024 Departed Referred [facility] Start: 12-15-2024 End: 12-15-2024 ambulatory Todd FOX Facility:[facility] Start: 12-10-2024 ambulatory Toddkathrine Hwangi ty:[facility] Start: 12-10-2024 Registered Referred Todd Velasquez MD -[facility] Start: 12-04-2024 End: 12-04-2024 Emergency department patient visit [facility] Start: 12-03-2024 End: 12-08-2024 Evaluation and management of inpatient Miriam Hennessy DO Work Phone: [facility] Epilepsy Monitoring Unit 3N Comment on above: [...] pathological fracture, unspecified osteoporosis type (Primary Dx) 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 Parking Lot - [facility] ther Start: 11-26-2024 ambulatory ORVILLE MENDOZA Facility:[facility] Start: 11-26-2024 End: 11-26-2024 Subsequent hospital visit by physician [facility] Comment on above: 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 osteop orosis [Z13.820] Start: 11-14-2024 ambulatory Toddkathrine Boyd ty:[facility] Start: 11-14-2024 Registered Referred Todd Velasquez MD -[facility] Start: 11-11-2024 End: 11-11-2024 Telephone encounter Jayant Jimenez MD Work Phone: Neurosurgery Comment on above: Received Outside Med ical Records (Seizure monitoring report ) Refill Request Start: 11-10-2024 End: 11-11-2024 Telephone encounter Jayant Jimenez MD Work Phone: Neurology Comment on above: Seizures Start: 11-08-2024 ambulatory Todd Boyd ty:[facility] Start: 11-08-2024 Registered Referred [facility] Start: 11-07-2024 End: 11-10-2024 Telephone encounter Jayant Jimenez MD Work Phone: Neurology Comment on above: general (seizure mon itoring report) Start: 09-29-2024 ambulatory Todd Boyd ty:[facility] Start: 09-29-2024 Registered [facility] Start: 09-26-2024 End: 09-26-2024 Telephone encounter Jayant Jimenez MD Work Phone: Neurology Comment on above: Outside Lab Results ([facility]) Start: 09-26-2024 ambulatory Todd Boyd ty:[facility] Start: 09-26-2024 [facility] Start: 09-24-2024 End: 09-24-2024 Patient encounter procedure Jayant Jimenez MD Work Phone: Neurology Epilepsy Comment on above: 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) (Primary Dx); 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 osteoporosis; senior care (current) use of other agents affecting estrogen receptors and estrogen levels; Encounter for screening for osteoporosis Start: 09-24-2024 End: 09-24-2024 ambulatory ORVILLE FELIPE KELLY Facility:[facility] Start: 09-22-2024 ambulatory Todd Boyd ty:[facility] Start: 09-22-2024 [facility] Start: 09-19-2024 End: 09-22-2024 Telephone encounter Jayant Jimenez MD Work Phone: Neurology Comment on above: Outside Lab Results (PHENYTOIN) Start: 09-19-2024 ambulatory Todd FOX Facili ty:[facility] Start: 09-19-2024 Registered Referred Todd Velasquez MD -[facility] Start: 09-17-2024 ambulatory Todd FOX Facili ty:[facility] Start: 09-17-2024 Registered Referred Todd Velasquez MD -[facility] Start: 09-15-2024 ambulatory Todd FOX Facili ty:[facility] Start: 09-05-2024 End: 09-05-2024 Telephone encounter Jayant Jimenez MD Work Phone: Neurology Comment on above: Forms (Review result s and orders) Start: 09-05-2024 End: 09-05-2024 ambulatory Todd FOX Facility:[facility] Start: 08-27-2024 End: 08-29-2024 Telephone encounter Jayant Jimenez MD Work Phone: Neurology Comment on above: Outside Labs Results (VPA) Start: 08-27-2024 End: 08-27-2024 ambulatory Todd FOX Facility:[facility] Start: 08-17-2024 End: 08-20-2024 Evaluation and management of inpatient TAO MASON EVONNE Facility:[facility] Start: 08-17-2024 End: 08-17-2024 Telephone encounter Francisco Javier Salazar MD Work Phone: General Neurology Start: 08-17-2024 End: 08-17-2024 Emergency department patient visit Hayes Nicholson Facility:[facility] Start: 08-14-2024 End: 08-14-2024 ambulatory Todd FOX Facility:[facility] Start: 08-06-2024 End: 08-06-2024 ambulatory Todd FOX Facility:[facility] Start: 07-07-2024 ambulatory Todd FOX Facili ty:[facility] Start: 11-05-2023 Registered Referred [facility] Start: 10-29-2023 End: 10-29-2023 ambulatory [facility] Work Phone: Start: 10-29-2023 End: 10-29-2023 Departed Referred [facility] Start: 09-25-2023 End: 09-25-2023 ambulatory [facility] Work Phone: Start: 09-25-2023 End: 09-25-2023 Departed Referred [facility] Start: 09-18-2023 End: 09-18-2023 Emergency department patient visit [facility] Work Phone: Start: 08-15-2023 End: 08-15-2023 ambulatory [facility] Work Phone: Start: 08-15-2023 End: 08-15-2023 Departed Referred [facility] Start: 08-10-2023 Telephone encounter Neurology Provid er Neurology Comment on above: Release Of Medical R ecords Start: 08-07-2023 Telephone encounter Neurology Provid er Neurology Comment on above: Results Start: 08-06-2023 End: 08-06-2023 ambulatory [facility] Work Phone: Start: 08-06-2023 End: 08-06-2023 Departed Referred [facility] Start: 05-14-2023 End: 05-14-2023 Departed Referred [facility] Start: 11-27-2022 End: 11-27-2022 ambulatory [facility] Work Phone: Start: 11-27-2022 End: 11-27-2022 Departed Referred [facility] Start: 10-30-2022 End: 10-30-2022 Departed Referred [facility] Start: 10-24-2022 End: 10-24-2022 Departed Referred [facility] Start: 10-24-2022 Registered Referred [facility] Start: 09-04-2022 End: 09-04-2022 ambulatory [facility] Work Phone: Start: 09-04-2022 End: 09-04-2022 [facility] Start: 06-12-2022 End: 06-12-2022 ambulatory [facility] Work Phone: Start: 06-12-2022 End: 06-12-2022 [facility] Start: 03-20-2022 End: 03-20-2022 Departed Referred [facility] Start: 12-26-2021 End: 12-26-2021 Departed Referred [facility] Start: 12-26-[address] [facility] Start: 12-21-2021 End: 12-21-2021 Departed Referred [facility] Start: 12-21-2021 [facility] Start: 11-23-2021 End: 11-23-2021 Departed Referred [facility] Start: 11-23-[address] [facility] Start: 10-26-2021 End: 10-26-2021 Departed Referred [facility] Start: 10-03-[address] [facility] Start: 01-22-2019 Patient encounter procedure [facility] Start: 06-06-2018 Emergency department patient visit PROVIDER UNKNOWN [facility] Procedures Date Procedure Procedure Detail Performing Clinician Start: 04-06-[address] Todd Velasquez Sr. DO Work Phone: Start: 03-10-[address] Todd Velasquez Sr. DO Work Phone: Comment on above: Test Ordered: [id number] LacosamideTest(s) 0 00686-Advhdqlwweeeg developed and its performance characteristicsdetermined by [facility]. It has not been cleared or approvedby the Food and Drug Administration.Lacosamide 8.0 ug/mL BN Reference Range: 5.0-10.0 Limit of Detection 0.5 Mean plasma concentrations following maintenance dose 200 mg/day 4.99 +/- 2.51 ug/mL 400 mg/day 9.35 +/- 4.22 ug/mL 600 mg/day 12.46 +/- 5.60 ug/mLPerformed at: [facility] Lab[address] [id number] Director: Nahed Naidu MD, Phone: [phone] at: [address] [id number] Director: Haris Peraza PhD, Phone: [phone] Start: 02-27-2025 Calcium measurement Todd Velasquez MD Start: 02-27-2025 Electrophoresis: [id number] Dr. Whitley Sr. DO Work Phone: Start: 02-27-2025 Electrophoresis: [id number] Dr. Whitley Sr. DO Work Phone: Start: 02-27-2025 Electrophoresis: gamma globulin Dr. Todd Velasquez Sr. DO Work Phone: Start: 02-27-2025 Parathyroid hormone measurement Todd keenan MD Start: 02-27-[address] Todd Velasquez Sr. DO Work Phone: Comment on above: Test Ordered: [id number] C-Telopeptide, Seru mC-Telopeptide, Serum 197 pg/mL ES Reference Range: .Reference Range:Premenopausal Women: 34 - 635Postmenopausal Women: 34 - 1037Performed at: [id number] [place], [place] [id number] Director: Felix Bonilla MD, Phone: [phone] at: [address] [id number] Director: Haris Peraza PhD, Phone: [phone] Start: 02-27-2025 Serum inorganic phosphate measurement Todd Velasquez MD Start: 02-27-2025 Vitamin D, 25-hydroxy measurement Todd nieto MD Comment on above: Vitamin D StatusDeficiency: <20 ng/mL (5 0nmol/L)Insufficiency: 20-30 ng/mL (50-75 nmol/L)Sufficiency: 30-100 ng/mL (75-250 nmol/L)Toxicity: >100 ng/mL (>250 nmol/L) Start: 12-08-2024 Basic metabolic panel calcium total Fazal Garza MD Work Phone: Start: 12-07-2024 Basic metabolic panel calcium total Fazal Garza MD Work Phone: Start: 12-06-2024 Basic metabolic panel calcium total Fazal Garza MD Work Phone: Start: 12-05-2024 Basic metabolic panel calcium total Fazal Garza MD Work Phone: Start: 12-04-2024 Ct head/brain w/o contrast material Charley Laquidara DO Work Phone: Start: 12-04-2024 Drug screen quant dipropylacetic acid free Susan Reyes MD Work Phone: Start: 12-04-2024 Basic metabolic panel calcium total Fazal Garza MD Work Phone: Start: 12-04-2024 Drug assay valproic dipropylacetic acid total Charley Laquidara DO Work Phone: Start: 12-03-2024 Culture bacterial quanttative colony count urine Rancho Zhou PA-C Work Phone: Start: 12-03-2024 Urinalysis complete panel - Urine Rancho Zhou PA-C Work Phone: Start: 12-03-2024 Ct abdomen & pelvis w/contrast material Rancho Zhou PA-C Work Phone: Start: 12-03-2024 Ecg routine ecg w/least 12 lds trcg only w/o i&r Rancho Zhou PA-C Work Phone: Start: 12-03-2024 Drug screen quantitative phenytoin total Rancho Zhou PA-C Work Phone: Start: 12-03-2024 Radiologic exam chest single view Ranchojay Parhamer PA-C Work Phone: Start: 12-03-2024 Respiratory pathogens DNA and RNA panel - Nasopharynx by RUTH with non-probe detection Fazal Garza MD Work Phone: Start: 12-03-2024 SARS-COV-2, FLU A/B, AND RSV COMBO Rancho Zhou PA-C Work Phone: Start: 12-03-2024 Bacteria identified in Blood by Culture Lax.comer PA-C Work Phone: Start: 12-03-2024 Comprehensive metabolic panel Rancho LogRhythm er PA-C Work Phone: Start: 12-03-2024 Plain chest X-ray Todd Velasquez MD Start: 12-03-2024 Estimated creatinine clearance Todd stafford MD Start: 12-03-2024 Measurement of renal function Todd angulo MD Comment on above: GFR Calc Start: 12-03-2024 Valproic acid measurement Todd Jimenez Start: 11-08-2024 Measurement of renal function Todd angulo MD Comment on above: GFR Calc Start: 11-08-2024 Valproic acid measurement Todd Jimenez Start: 09-18-2023 Plain chest X-ray Start: 09-18-2023 CT of head without contrast Start: 10-24-2022 Thyrotropin [Units/volume] in Serum or Plasma Miriam Hennessy DO Work Phone: Plan of Treatment Date Care Activity Detail Author Start: 12-08-2027 Diabetes Screening Diabetes Screening [facility] Start: 08-18-2027 Diabetes Screening Diabetes Screening [facility] Start: 11-26-2026 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 osteoporosis [facility] [employer] Start: 07-17-2025 End: 07-17-2025 Patient encounter procedure 07/17/2025 10:00 AM EDT Office Visit Neurology Epilepsy [address] [place] [address] Jayant Jimenez MD [address] [place] [address] 6 month follow-up Neurology Epilepsy Comment on above: 6 month follow-up Start: 06-15-2025 Influenza vaccination [facility] Start: 05-28-2025 End: 05-28-2025 Patient encounter procedure 05/28/2025 2:30 PM EDT Office Visit Rheumatology [address] [place] [address] Lolita Jain PA-C [address] [place] [address] 3 month follow up Rheumatology Comment on above: 3 month follow up Start: 02-27-2025 Procedure [facility] Start: 02-25-2025 End: 02-25-2025 Patient encounter procedure 02/25/2025 3:00 PM EDT Office [facility] [address] [place] [address] Lolita Jain PA-C [address] [place] [address] osteoporosis Rheumatology Comment on above: osteoporosis Start: 02-25-2025 End: 05-27-2025 25-hydroxyvitamin D3 [Mass/volume] in Serum or Plasma VITAMIN D 25 HYDROXY Lab Routine Osteoporosis without current pathological fracture, unspecified osteoporosis type Expected: 02/25/2025, Expires: 05/27/2025 [facility] Comment on above: Expected: 02/25/2025, Expires: Start: 02-25-2025 End: 05-27-2025 Basic metabolic 2000 panel - Serum or Plasma BASIC METABOLIC PANEL Lab Routine Osteoporosis without current pathological fracture, unspecified osteoporosis type Expected: 02/25/2025, Expires: 05/27/2025 [facility] Work Phone: Comment on above: Expected: 02/25/2025, Expires: Start: 02-25-2025 End: 05-27-2025 Calcium.ionized [Moles/volume] in Blood CALCIUM, IONIZED Lab Routine Osteoporosis without current pathological fracture, unspecified osteoporosis type Expected: 02/25/2025, Expires: 05/27/2025 [facility] Comment on above: Expected: 02/25/2025, Expires: Start: 02-25-2025 End: 05-27-2025 Collagen crosslinked C-telopeptide [Mass/volume] in Serum or Plasma C TELOPEPTIDE, BETA Lab Routine Osteoporosis without current pathological fracture, unspecified osteoporosis type Expected: 02/25/2025, Expires: 05/27/2025 [facility] Comment on above: Expected: 02/25/2025, Expires: Start: 02-25-2025 End: 05-27-2025 Magnesium [Mass/volume] in Serum or Plasma MAGNESIUM Lab Routine Osteoporosis without current pathological fracture, unspecified osteoporosis type Expected: 02/25/2025, Expires: 05/27/2025 [facility] Comment on above: Expected: 02/25/2025, Expires: Start: 02-25-2025 End: 05-27-2025 Parathyrin.intact [Mass/volume] in Serum or Plasma PTH INTACT Lab Routine Osteoporosis without current pathological fracture, unspecified osteoporosis type Expected: 02/25/2025, Expires: 05/27/2025 [facility] Comment on above: Expected: 02/25/2025, Expires: Start: 02-25-2025 End: 05-27-2025 Phosphate [Mass/volume] in Serum or Plasma PHOSPHORUS INORGANIC Lab Routine Osteoporosis without current pathological fracture, unspecified osteoporosis type Expected: 02/25/2025, Expires: 05/27/2025 [facility] Comment on above: Expected: 02/25/2025, Expires: Start: 02-25-2025 End: 05-27-2025 PROTEIN ELECT RND UR W/INTERP PROTEIN ELECT RND UR W/INTERP Lab Routine Osteoporosis without current pathological fracture, unspecified osteoporosis type Expected: 02/25/2025, Expires: 05/27/2025 [facility] Comment on above: Expected: 02/25/2025, Expires: Start: 02-25-2025 End: 05-27-2025 PROTEIN ELECTROPHORESIS SERUM W/INTERP PROTEIN ELECTROPHORESIS SERUM W/INTERP Lab Routine Osteoporosis without current pathological fracture, unspecified osteoporosis type Expected: 02/25/2025, Expires: 05/27/2025 [facility] Comment on above: Expected: 02/25/2025, Expires: Start: 01-15-2025 End: 01-15-2025 Patient encounter procedure 01/15/2025 8:00 AM EDT Office Visit Neurology Epilepsy [address] [place] [address] Jayant Jimenez MD [address] [place], [place] [id number] 3 month follow-up Neurology Epilepsy Comment on above: 3 month follow-up Start: 12-03-2024 [facility] Start: 11-26-2024 End: 11-26-2024 Patient encounter procedure 11/26/2024 10:30 AM EST Appointment [facility] [address] [place] [address] Bone Density(TBS) [facility] Comment on above: Bone Density(TBS) Start: 11-25-2024 End: 11-25-2024 Patient encounter procedure 11/25/2024 8:00 AM EST Appointment [facility] [address] [place] [address] Bone Density(TBS) [facility] Comment on above: Bone Density(TBS) Start: 10-15-2024 Advance Directive Discussion Advance Directive Discussion [facility] Start: 09-24-2024 End: 09-24-2025 Ammonia [Moles/volume] in Plasma AMMONIA Lab Routine 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 osteoporosis Nonintractable generalized idiopathic epilepsy without status epilepticus (HCC) Expected: 09/24/2024, Expires: 09/24/2025 [facility] Work Phone: Comment on above: Expected: 09/24/2024, Expires: Start: 09-24-2024 End: 09-24-2024 Patient encounter procedure 09/24/2024 8:00 AM EST Office Visit Neurology Epilepsy [address] [place] [address] Jayant Jimenez MD [address] [place] [address] Hospital Follow up Neurology Epilepsy Comment on above: Hospital Follow up Start: 06-15-2024 Covid-19 Vaccine ( season) Covid-19 Vaccine ( season) [facility] Start: 06-15-2024 Influenza vaccination Influenza Vaccine (#1) [facility] Start: 10-24-2023 Thyroid stimulating hormone measurement TSH Level [facility] Start: 10-15-2023 Advance Directive Discussion Advance Directive Discussion [facility] Start: 09-18-2023 [facility] Start: 09-18-2023 Seizure precautions [facility] Start: 06-15-2023 Influenza vaccination Influenza Vaccine (#1) [facility] Start: 10-15-2022 Advance Directive Discussion Advance Directive Discussion [facility] Start: 10-15-2022 Depression Assessment Depression Assessment [facility] Start: 2022 RSV Immunization for Adults (1 - 1-dose 75+ series) RSV Immunization for Adults (1 - 1-dose 75+ series) [facility] Start: 2022 RSV Vaccine (1 - 1-dose 75+ series) RSV Vaccine (1 - 1-dose 75+ series) [facility] Start: 08-07-2021 Diabetes Screening Diabetes Screening [facility] Start: 2012 Bone Density Screening Bone Density Screening [facility] Start: 2012 Pneumococcal Vaccine: 65+ (1 - PCV) Pneumococcal Vaccine: 65+ (1 - PCV) [facility] Start: 2012 Pneumococcal Vaccine: 65+ (1 of 1 - PCV) Pneumococcal Vaccine: 65+ (1 of 1 - PCV) [facility] Start: 2012 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 osteoporosis Bone Density Screening [facility] Start: 06-15-2012 Medicare Annual Wellness Visit Medicare Annual Wellness Visit [facility] Start: 2007 RSV Vaccine (1 - 1-dose 60+ series) RSV Vaccine (1 - 1-dose 60+ series) [facility] Start: 1997 Pneumococcal Vaccine: 50+ (1 of 1 - PCV) Pneumococcal Vaccine: 50+ (1 of 1 - PCV) [facility] Start: 1997 Pneumococcal Vaccine: 50+ Years (1 of 1 - PCV) Pneumococcal Vaccine: 50+ Years (1 of 1 - PCV) [facility] Start: 1997 Shingrix Vaccine (1 of 2) Shingrix Vaccine (1 of 2) [facility] Start: 1997 Zoster Vaccines (1 of 2) Zoster Vaccines (1 of 2) [facility] Start: 1966 DTaP/Tdap/Td Vaccines (1 - Tdap) DTaP/Tdap/Td Vaccines (1 - Tdap) [facility] Start: 1966 Urine microalbumin profile DTaP,Tdap,Td Vaccine (1 - Tdap) [facility] Start: 1965 Anxiety Screening Anxiety Screening [facility] Start: 1965 Depression Screening Depression Screening [facility] Start: 1965 Hepatitis C Screening Hepatitis C Screening [facility] Start: 1965 Hepatitis C screening Hepatitis C Screening [facility] Start: 1959 Depression Monitoring Depression Monitoring [facility] Start: 01-07-1948 Covid-19 Vaccine (#1) Covid-19 Vaccine (#1) [facility] Start: 1947 Lipid panel Lipid Panel [facility] Start: 1947 Medicare Annual Wellness (AWV) Medicare Annual Wellness (AWV) [facility] Albumin/Globulin [Ma ss Ratio] in Serum or Plasma by Electrophoresis [facility] End: 10-24-2025 BD DXA TRABECULAR BONE SCORE (TBS) BD DXA TRABECULAR BONE SCORE (TBS) Radiology Routine 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 osteoporosis 1 Occurrences starting 09/24/2024 until 10/24/2025 [facility] Comment on above: 1 Occurrences starting 09/24/2024 until 10/24/2025 End: 11-26-2024 BD DXA TRABECULAR BONE SCORE (TBS) [facility] Comment on above: 1 Occurrences starting 11/26/2024 until 11/26/2024 CALCIUM, 24 HR URINE CALCIUM, 24 HR URINE Lab Routine Osteoporosis without current pathological fracture, unspecified osteoporosis type Ordered: 02/25/2025 [facility] Comment on above: Ordered: 02/25/2025 CREATININE, 24 HOUR URINE CREATININE, 24 HOUR URINE Lab Routine Osteoporosis without current pathological fracture, unspecified osteoporosis type Ordered: 02/25/2025 [facility] Comment on above: Ordered: 02/25/2025 End: 10-24-2025 DXA Skeletal system.axial Views for bone density DXA-AXIAL SKELETON Radiology Routine 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 other agents affecting estrogen receptors and estrogen levels 1 Occurrences starting 09/24/2024 until 10/24/2025 [facility] Comment on above: 1 Occurrences starting 09/24/2024 until 10/24/2025 End: 11-26-2024 DXA Skeletal system.axial Views for bone density [facility] Work Phone: Comment on above: 1 Occurrences starting 11/26/2024 until 11/26/2024 Electrophoresis: albumin [facility] Electrophoresis: [id number] [facility] Electrophoresis: [id number] [facility] Electrophoresis: franky ma globulin [facility] Globulin measurement [facility] End: 12-04-2024 Lacosamide [facility] Work Phone: Comment on above: Once (Lab) for 1 Occurrences starting until 12/04/2024 Patient Education ED Seizure, Re current (Adult) [facility] Work Phone: Patient referral [facility] Work Phone: Protein electrophore sis panel - Serum or Plasma [facility] Serum protein electrophoresis [facility] Total globulins measurement [facility] Immunizations Immunization Date Immunization Notes Care Provider Karishma long 07-11-2022 influenza virus vacc ine, unspecified formulation Miriam Hennessy DO Work Phone: [facility] Payers Date Payer Category Payer Self-pay [id number] 2022 Medicaid MEDICAID - [facility] [id number] 2022 Medicaid [id number] 2016 Medicare supplementa l policy (as second payer) [facility] [id number] 2016 Private Health Insurance 2016 Private Health Insurance [id number] 2015 Medicare [id number] 2012 Medicare 2012 Medicare [id number] 1945 Unknown [id number] 1945 Unknown [id number] .[id number] Unknown [id number] .462 Unknown [id number] .[id number] .462 Unknown [id number] 2.16.840.1.219062.3.579.2 .462 Unknown [id number] 2.16.840.1.920718.3.579.2 .462 Unknown [id number] 2.16.840.1.565448.3.579.2 .462 Unknown [id number] 2.16.840.1.896140.3.579.2 .462 Unknown [id number] 2.16.840.1.270462.3.579.2 .462 Unknown [id number] 2.16.840.1.862560.3.579.2 .462 Unknown [id number] 2.16.840.1.755769.3.579.2 .462 Unknown [id number] 2.16.840.1.970662.3.579.2 .462 Unknown [id number] 2.16.840.1.250918.3.579.2 .462 Unknown [id number] 2.16.840.1.805863.3.579.2 .462 Unknown [id number] 2.16.840.1.651534.3.579.2 .462 Unknown [id number] 2.16.840.1.543210.3.579.2 .462 Unknown [id number] 2.16.840.1.211123.3.579.2 .462 Unknown [id number] 2.16.840.1.415625.3.579.2 .462 Unknown [id number] 2.16.840.1.713018.3.579.2 .462 Unknown [id number] [id number] .462 Social History Date Type Detail Facility [facility] Work Phone: Start: 1945 Sex Assigned At Female W [facility] Start: 08-07-2018 End: 09-24-2024 Tobacco smoking status DCIS Never smoked tobacco [facility] Start: 08-07-2018 End: 09-24-2024 Tobacco use and exposure Smokeless tobacco non-user [facility] Start: 09-01-2019 End: 09-19-2020 History of Social function [facility] Start: 09-01-2019 End: 09-19-2020 Tobacco use panel [facility] Adult Depression Screening Assessment 0 [facility] Start: 1945 Sex Assigned At Not on file [facility] Start: 09-18-2023 Tobacco smoking stat [facility] Unknown if ever smoked [facility] Has the electric, ga s, oil, or water company threatened to shut off services in your home in past 12Mo No [facility] (I/We) worried wheth er (my/our) food would run out before (I/we) got money to buy more. Never true [facility] History of tobacco use Passive smoker [facility] Start: 01-27-2020 Alcoholic beverage intake Current non-drinker of alcohol (finding) [facility] Are you now , , , , never or living with a partner? Never [facility] How often to you hav e a drink containing alcohol? Never [facility] How hard is it for y ou to pay for the very basics like food, housing, medical care, and heating Not very hard [facility] Do you feel stress - tense, restless, nervous, or anxious, or unable to sleep at night because your mind is troubled all the time - these days [OSQ] Not at all [facility] Start: 05-15-2022 End: 02-10-2025 Sex Female (finding) [facility] Medical Equipment Procedure Code Equipment Code Equipment Origin al Text Equipment Identifier Dates Use 1 pen needle once daily as directed for Teriparatide injections [id number] Start: 03-03-2025 Functional Status Date Assessment Result Facility 08-20-2024 Are you deaf, or do you have serious difficulty hearing No 08/20/2024 11:29 AM Jennifer Coy RN [facility] 08-20-2024 Are you blind, or do you have serious difficulty seeing, even when wearing glasses No 08/20/2024 11:[address] [facility] 08-20-2024 Do you have serious difficulty walking or climbing stairs Yes 08/20/2024 11:29 AM Jennifer Coy, MEGA Yes [facility] 08-20-2024 Do you have difficul ty dressing or bathing Yes 08/20/2024 11:29 AM Jennifer Coy RN Yes [facility] 08-20-2024 Because of a physica l, mental, or emotional condition, do you have difficulty doing errands alone such as visiting a physician's office or shopping Yes 08/20/2024 11:29 AM Jennifer Coy RN Yes [facility] Mental Status Date Assessment Result Facility 12-03-2024 Cognitive function Level Of Cons ciousness Awake;Appropriate;Follows Commands;Drowsy [facility] Work Phone: 08-20-2024 Because of a physica l, mental, or emotional condition, do you have serious difficulty concentrating, remembering, or making decisions Yes 08/20/2024 11:29 AM Jennifer Coy RN Yes [facility] 09-18-2023 Cognitive function Voice/Name [facility] Work Phone: Clinical Notes 08-08-2023 to 04-16-2025 Telephone Encounter - Shavonne Sinclair RN - 04/16/2025 10:19 AM EDTTelephone Encounter - Shavonne Sinclair RN - 04/16/2025 10:19 AM EDTTelephone Encounter - Jacki Sumner MA - 02/26/2025 2:54 PM EDT Note Date & Type Note Facility 04-16-2025 Telephone encounter Note Telephone encounter faxed. Shavonne Sinclair RN [facility] 04-16-2025 Miscellaneous Notes Telephone encounter faxed. Shavonne Sinclair RN Received outside medical records from [facility] dated 04/06/25 PTH level is 76 The PTH has worsened despite increasing patient calcium and vitiatin D Called and spoke with Alem nurse for Katheryn. I will need patient to see Endocrinology regarding this before finalizing her osteoporosis treatment, but likely will not be able to use Forteo as this also works using the parathyroid hormone. An alternative medication would be EVENITY injections. These are injections in both arms, once a month for 12 months, followed by an IV Reclast infusion. They are given in the office. EVENITY has different risks including increased risk of major cardiovascular events such as heart attack and stroke. We don't use in patients who have had WY/Stroke in the past year. She will review with Katheryn and ERNESTINE and let us know preference moving forward regarding treatment. Thanks KG Please fax this phone encounter to [phone] for their records documented in this encounter [facility] 04-16-2025 Telephone encounter Note Received outside medical records from [facility] dated 04/06/25 PTH level is 76 The PTH has worsened despite increasing patient calcium and vitiatin D Called and spoke with nurse Alem for Katheryn. I will need patient to see Endocrinology regarding this before finalizing her osteoporosis treatment, but likely will not be able to use Forteo as this also works using the parathyroid hormone. An alternative medication would be EVENITY injections. These are injections in both arms, once a month for 12 months, followed by an IV Reclast infusion. They are given in the office. EVENITY has different risks including increased risk of major cardiovascular events such as heart attack and stroke. We don't use in patients who have had WY/Stroke in the past year. She will review with Yeni and let us know preference moving forward regarding treatment. Thanks KG Please fax this phone encounter to [phone] for their records [facility] 02-26-2025 Telephone encounter Note Hermann Avalos from [facility] called back. Message from Lolita Jain PA-C given and she verbalized understanding. [facility] 02-26-2025 Miscellaneous Notes Hermann Avalos from [facility] called back. Message from Lolita Jain PA-C given and she verbalized understanding. Ok to disregard 24 hour urine testing. Just have her take calcium citrate 600 mg daily, this will be fine with her current dietary intake. Bill from [facility] called into office requesting clarification of calcium citrate supplement. Per office note SHILO velazquez states "The recommendation is 2371-8899 mg of calcium daily between diet and supplement. If she continues to eat 3 servings of dairy per day, I recommend additional 600 mg daily via calcium citrate supplement. " Office note faxed to [facility]. Nurse states that patient in almost completely incontinence and they state a 24 hr urine will be difficult. Please advise. Felipa Zuñiga LPN documented in this encounter [facility] 02-26-2025 Telephone encounter Note Ok to disregard 24 hour urine testing. Just have her take calcium citrate 600 mg daily, this will be fine with her current dietary intake. [facility] 02-26-2025 Telephone encounter Note Volodymyr from [facility] called into office requesting clarification of calcium citrate supplement. Per office note SHILO velazquez states "The recommendation is 9666-7100 mg of calcium daily between diet and supplement. If she continues to eat 3 servings of dairy per day, I recommend additional 600 mg daily via calcium citrate supplement. " Office note faxed to [facility]. Nurse states that patient in almost completely incontinence and they state a 24 hr urine will be difficult. Please advise. Felipa Zñuiga LPN [facility] Work Phone: 02-26-2025 History of Present illness Narrative [facility] received prescription(s) for Teriparatide from Lolita Cristobal 's office. Benefits investigation was conducted, indicating that a prior authorization is required by patient's insurance plan with [employer]. Note will be updated once prior authorization has been submitted. Krystle Fraga (Dee) [facility] Neurology/Cardiology/Infections Disease [facility] P: F: documented in this encounter [facility] 02-26-2025 Note HNO ID: [id number] Author: ?, ?, ? Service: ? Author Type: ? Type: Progress Notes Filed: 02/26/2025 07:55 Note Text: [facility] received prescription(s) for Teriparatide from Lolitakathrine Jain 's office. Benefits investigation was conducted, indicating that a prior authorization is required by patient's insurance plan with [employer]. Note will be updated once prior authorization has been submitted. Krystle Fraga (Dee) [facility] Neurology/Cardiology/Infections Disease [facility] P: F: [facility] 02-26-2025 Note HNO ID: [id number] Author: ?, ?, ? Service: ? Author Type: ? Type: Progress Notes Filed: 02/27/2025 07:44 Note Text: [facility] received prescription(s) for Teriparatide PA was approved with details listed below. Plan Name [employer] PA reference number: [id number] Approval Dates: 10/15/24 - 02/16/27 Prescriptions will now be processed through [facility] for determination of next steps. Petrona Almanza CPhT (Dee) [facility] Neurology/Cardiology/Infections Disease [facility] P: F: [facility] 02-26-2025 Note HNO ID: [id number] Author: GUILLE CORONA Formerly [facility] Service: ? Author Type: Pharmacist Type: Progress Notes Filed: 04/19/2025 14:37 Note Text: Per 04-16-25 encounter from SHILO Velazquez: Received outside medical records from [facility] dated 04/06/25 PTH level is 76 The PTH has worsened despite increasing patient calcium and vitiatin D Called and spoke with Alem, nurse for Katheryn. I will need patient to see Endocrinology regarding this before finalizing her osteoporosis treatment, but likely will not be able to use Forteo as this also works using the parathyroid hormone. An alternative medication would be EVENITY injections. These are injections in both arms, once a month for 12 months, followed by an IV Reclast infusion. They are given in the office. EVENITY has different risks including increased risk of major cardiovascular events such as heart attack and stroke. We don't use in patients who have had WY/Stroke in the past year. She will review with Katheryn and ERNESTINE and let us know preference moving forward regarding treatment. Teriparatide start on hold; at this time, no further action required by [facility]. Guille Corona, PharmD, CSP, MSCS Pharmacist, [facility] 02-26-2025 Note HNO ID: [id number] Author: ?, ?, ? Service: ? Author Type: ? Type: Progress Notes Filed: 02/26/2025 16:22 Note Text: [facility] received prescription(s) for Teriparatide PA was initiated and pending review. Plan Name: [employer] Plan Agent/Castellanos: cmm castellanos [id number] Case: [id number] Timeline: standard Petrona Almanza CPhT (Dee) [facility] Neurology/Cardiology/Infections Disease [facility] P: F: [facility] 02-25-2025 Instructions Lolita Jain PA-C - 02/25/2025 [...] prescription for Forteo (teriparatide) injections to the [facility] pharmacy they will reach out regarding shipment Follow up 3 months documented in this encounter [facility] 02-25-2025 History of Present illness Narrative Images from the original note were not included. Osteoporosis and Metabolic Bone Disease CONSULTATION Referring Provider: Jayant Jimenez Date of Service: 02/25/2025 Gender: female Ethnicity: White Age: [age] year old Chief Complaint: New Patient Last Rheumatology visit: None at [facility] Katheryn Chino is a 79 year old [...] years, Gender: Female SCANNER INFORMATION: DXA Model: [employer] [id number] Date Scanned: 11/26/2024 11:08 AM CLINICAL HISTORY: [...] had a previous bone density in the [facility] or the previous bone density was performed on a different DXA machine (new, updated model or different location) within the [facility]. VERTEBRAL FRACTURE ASSESSMENT Not performed. TRABECULAR BONE [...] FOR MORE INFORMATION ABOUT DIAGNOSIS AND TREATMENT: [facility] Center for Osteoporosis and Metabolic Bone Disease:? www.ccf.org/arthritis/osteo National Osteoporosis Foundation:? www.nof.org International Society of Clinical Densitometry www.iscd.org Application Packaging Specialist: SUNSHINE Transcribe Date/Time: Nov 29 2024 2:05P [...] mg/spray (0.1 mL) nasal spray Use 1 Granada in the nose as needed for seizures [...] units per day Plan The recommendation is 1710-9320 mg of calcium daily between diet and [...] which included preparing to see the patient, [id number] patient care, completing clinical documentation, obtaining and/or reviewing separately obtained history, performing a medically appropriate examination, counseling and educating the patient/family/caregiver, ordering medications, tests, or procedures, and communicating results to the patient/family/caregiver. Lolita Jain PA-C cc: PCP: Orville Mendoza [address] [place] [address] documented in this encounter [facility] 02-25-2025 Note HNO ID: [id number] Author: LOLITA JAIN PA-C Service: ? 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 VERTEBRAL FRACTURE ASSESSMENT Not performed. TRABECULAR BONE [...] should not replace (more content not included)... [facility] 01-16-2025 Telephone encounter Note The following approved medication requests have been transmitted electronically. Requested Prescriptions Signed Prescriptions Disp Refills lacosamide (VIMPAT) 100 mg tab 90 tablet 1 Sig: Take 1 tablet by mouth every morning for 180 days. Authorizing Provider: MAYDA HARRISON PA-C PDMP website checked and validated. All prescriptions have been APPROPRIATELY filled. No suspicious activity was identified. 01/16/2025 by Mayda Harrison PA-C [facility] 01-16-2025 Miscellaneous Notes The following approved medication requests have been transmitted electronically. Requested Prescriptions Signed Prescriptions Disp Refills lacosamide (VIMPAT) 100 mg tab 90 tablet 1 Sig: Take 1 tablet by mouth every morning for 180 days. Authorizing Provider: MAYDA HARRISON PA-C PDMP website checked and validated. All prescriptions have been APPROPRIATELY filled. No suspicious activity was identified. 01/16/2025 by Mayda Harrison PA-C 01/15/[address] Jimenez PLAN: Continue [...] Medication Concern Person Calling Katia Nurse from assisted Name of medication Lacosamide Concern with medication They have Katheryn taking 100MG in the morning and 50 mg at night. Per yesterdays appointment it states 150mg at time time. What one should they do ? Patient of Dr. Jimenez documented in this encounter [facility] 01-16-2025 Telephone encounter Note 01/15/[address] Jimenez PLAN: Continue Depakote [...] to be sent in. Sandra Casey RN [facility] 01-16-2025 Telephone encounter Note Medication Concern Person Calling Katia Nurse from assisted Name of medication Lacosamide Concern with medication They have Katheryn taking 100MG in the morning and 50 mg at night. Per yesterdays appointment it states 150mg at time time. What one should they do ? Patient of Dr. Jimenez [facility] 01-15-2025 Note HNO ID: [id number] Author: JAYANT JIMENEZ MD Service: ? Author Type: Physician Type: Progress Notes Filed: 01/15/2025 08:54 Note Text: [facility] Patient Name: Katheryn Chino Date of : 1945 ESTABLISHED EPILEPSY CLINIC NOTE 01/15/2025 8:00 AM Reason for Visit: Follow Up and Epilepsy Clinical Summary: Ms. Chino is a 79 year old female seen in [facility]. At today's visit, the patient [...] with AEDs . She moved to a [place] and she has more suervison with AEDs now. 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 She had good seizure control for a few years until covid. Hospitaltization in Aug 2024 for a prolonged GTCS at the facility ( brother reports it lasted ~ 25 mins). Admitted to [facility] where Dilantin and Depakote levels were [...] nasal spray (Taking As Needed) Use 1 Granada in the nose as needed for seizures [...] 2 SCORE - (more content not included)... [facility] 01-15-2025 History of Present illness Narrative [facility] Patient Name: Katheryn Chino Date of : 1945 ESTABLISHED EPILEPSY CLINIC NOTE 01/15/2025 8:00 AM Reason for Visit: Follow Up and Epilepsy Clinical Summary: Ms. Chino is a 79 year old female seen in [facility]. At today's visit, the patient [...] with AEDs . She moved to a [place] and she has more suervison with AEDs now. 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 She had good seizure control for a few years until covid. Hospitaltization in Aug 2024 for a prolonged GTCS at the facility ( brother reports it lasted ~ 25 mins). 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 -Vocation: -Education: -Cigarette, [...] impaired coordination greater on the right on eolqos-zv-qeej testing Postural and action tremor in both [...] precautions - No driving in the state [facility] until seizure free for 6 months. [...] which included: preparing to see the patient okob-fw-iqhy patient care completing clinical documentation obtaining and/or reviewing separately obtained history performing a medically appropriate examination counseling and educating the patient/family/caregiver ordering medications, tests, or procedures Jayant Jimenez MD cc: Primary Care Physician: Orville Mendoza, [address] [address] Referring: Patient: Ms. Katheryn Chino [id number] [phone] documented in this encounter [facility] 01-15-2025 Instructions Jayant Jimenez MD - 01/15/2025 [...] precautions - No driving in the state [facility] until seizure free for 6 months. [...] factor. Jayant Jimenez MD Associate Staff, Epilepsy [facility] January 15, 2025 Office phone: [phone] documented in this encounter [facility] 12-24-2024 Telephone encounter Note The following approved medication requests have been transmitted electronically. Requested Prescriptions Signed Prescriptions Disp Refills diazePAM (VALTOCO) 10 mg/spray (0.1 mL) nasal spray 2 Each 1 Sig: Use 1 [place] in the nose as needed for seizures lasting longer than 3 minutes. May repeat dose once after 4 hours based on response and tolerability for a maximum of 2 doses per 24-hour period. Authorizing Provider: ARTIS HAMILTON APRN.CNP [facility] 12-24-2024 Miscellaneous Notes The following approved medication requests have been transmitted electronically. Requested Prescriptions Signed Prescriptions Disp Refills diazePAM (VALTOCO) 10 mg/spray (0.1 mL) nasal spray 2 Each 1 Sig: Use 1 [place]ada in the nose as needed for seizures [...] Medication Concern Person Calling Rosita Cornejo, from [facility], ask for Pat's nurse Name of medication Nayzilam Concern with medication Nurse states the medication did not work the last time the patient had a seizure. Wants to know if another rescue medication can be prescribed instead. Patient of Dr. Jimenez documented in this encounter [facility] 12-24-2024 Telephone encounter Note We can trial Valtoco KLP ODT takes much longer to work [facility] 12-24-2024 Telephone encounter Note See 12/23/24 phone encounter. Silvia Rogers RN [facility] 12-24-2024 Miscellaneous Notes See 12/23/24 phone encounter. Silvia Rogers RN Level WNL If she has not had further seizures since reaching 100/150 of LCM can continue dose unchanged, any seizures would increase to 150/150 Artis Hamilton APRN.SMALL CRAFT OPERATOR Images from the original note were not included. Current LCM dose 100/150 Forwarded to MARIO 2 [employer] for review. Silvia Rogers RN [facility] PHONE/FAX COLLECTION DATE AND TIME: 12/15/24 540 Uploaded to [employer] documented in this encounter [facility] 12-24-2024 Telephone encounter Note Spoke with nurse Becker at [facility]. See 12/23/24 encounter. Silvia Rogers RN [facility] 12-24-2024 Miscellaneous Notes Spoke with nurse Becker at [facility]. See 12/23/24 encounter. Silvia Rogers RN ORDERS Person requesting order: [facility] Phone number: [phone] Order being requested: Facility: [facility] Patient of Dr. Jimenez Forwarded to Nurse documented in this encounter [facility] 12-24-2024 Telephone encounter Note Spoke with nurse Rosita. Facility DON would [...] MARIO 2 for review. Silvia Rogers RN [facility] 12-24-2024 Telephone encounter Note [facility]ERS [facility] Phone number: [phone] Order being requested: Facility: [facility] Patient of Dr. Jimenez Forwarded to Nurse [facility] 12-23-2024 Telephone encounter Note Medication Concern Person Calling Rosita Cornejo, from [facility], ask for Pat's nurse Name of medication Nayzilam Concern with medication Nurse states the medication did not work the last time the patient had a seizure. Wants to know if another rescue medication can be prescribed instead. Patient of Dr. Jimenez [facility] 12-19-2024 Telephone encounter Note Level WNL If she has not had further seizures since reaching 100/150 of LCM can continue dose unchanged, any seizures would increase to 150/150 Artis Hamilton APRN.SMALL CRAFT OPERATOR [facility] 12-19-2024 Telephone encounter Note Images from the original note were not included. Current LCM dose 100/150 Forwarded to MARIO 2 [employer] for review. Silvia Rogers RN [facility] 12-19-2024 Telephone encounter Note OUTSIDE LAB REPORT FACILITY NAME [facility] PHONE/FAX COLLECTION DATE AND TIME: 12/15/24 540 Uploaded to [employer] [facility] 12-08-2024 Plan of care note Problem: [...] Interventions Goal: Assess Nutritional Intake Outcome: Completed [facility] 12-08-2024 Plan of care [...] Interventions Goal: Assess Nutritional Intake Outcome: Completed [facility] 12-08-2024 Miscellaneous Notes Problem: Knowledge Deficit [...] MAR & Discharge med list transmitted to [facility] via [facility] per TCC request. Transport requested in Roundtrip. Awaiting time confirmation. Confirmed pickup time of 3:00 by transport [employer] Hannah at phone number . Location of facility drop off is [facility]. Facility notified via [employer], Martine Glasgow notified on secure chat. Pt is stable for DC to return to [facility] SNF. DISTRICT REPRESENTATIVE tasked to arrange transport and to send DC notes/MAR to SNF. Transport arranged for 3:00 today. Pt's brother called, Danny [phone], updates given. Problem: Knowledge Deficit Goal: Patient/family/caregiver [...] process, treatment plan, medications, and discharge instructions 12/06/2024 05 by Maria Victoria Zapata RN Outcome: Progressing [...] or improved Outcome: Progressing Pt adm from [facility] SNF/LTC, with Sepsis 2nd to UTI. Plan is to return. Facility will adm pt back skilled under Medicare. Called pt's brother Danny [phone] was called and updated. CM to follow. [...] 12-04-24 during interdisciplinary rounds. Pt admitted from [facility] due to seizures. Pt has a history of seizure disorder. No needs anticipated but SW available as needs arise. documented in this encounter [facility] 12-08-2024 Note Formatting of this n ote might be different from the original. MAR & Discharge med list transmitted to [facility] Return - [facility] via [facility] per [facility] request. [facility] 12-08-2024 Note Formatting of this n ote might be different from the original. MAR & Discharge med list transmitted to [facility] Return [facility] via [employer] per [facility] request. [facility] 12-08-2024 Note Formatting of this n ote might be different from the original. Transport requested in Roundtrip. Awaiting time confirmation. Confirmed pickup time of 3:00 by transport [employer] at phone number . Location of facility drop off is [facility]. Facility notified via [facility], Martine Glasgow notified on secure chat. [facility] [employer] 12-08-2024 Note Formatting of this n ote might be different from the original. Transport requested in Roundtrip. Awaiting time confirmation. Confirmed pickup time of 3:00 by transport [employer] at phone number . Location of facility drop off is [facility]. [facility], Martine Glasgow notified on secure chat. [facility] [employer] 12-08-2024 Note Formatting of this n ote might be different from the original. Pt is stable for DC to return to [facility] SNF. DISTRICT REPRESENTATIVE tasked to arrange transport and to send DC notes/MAR to SNF. Transport arranged for 3:00 today. Pt's brother called, Danny [phone], updates given. [facility] [place] 12-08-2024 Note Formatting of this n ote might be different from the original. Pt is stable for DC to return to [facility] SNF. DISTRICT REPRESENTATIVE tasked to arrange transport and to send DC notes/MAR to SNF. Transport arranged for 3:00 today. Pt's brother called, Danny [phone], updates given. [facility] [employer] 12-08-2024 Note Hospitalist Discharg e Summary Katheryn Chino : 1945 Admit date: 12/03/2024 Discharge date: 12/08/2024 Admitting Physician: Fazal Garza MD Primary Care Physician: Orville Mendoza DO Visit Status: inpt Code Status: Full Code BRIEF HOSPITAL COURSE: Katheryn is a 79 y.o. Presenting from [place] for breakthrough seizure, Was found to meet [...] 01/27/2020 Peptic ulcer disease 01/27/2020 Seizure disorder ([facility]) 01/27/2020 Hospital Course: See discharge [...] known as: Refresh Plus cholecalciferol 50 MCG (2000 UT) capsule Commonly known as: Vitamin D-3 [...] 10 MEQ ER (more content not included)... [facility] 12-08-2024 Hospital course Narrative Images from the original note were not included. Hospitalist Discharge Summary Katheryn Chino : 1945 Admit date: 12/03/2024 Discharge date: 12/08/2024 Admitting Physician: Fazal Garza MD Primary Care Physician: Orville Mendoza DO Visit Status: inpt Code Status: Full Code BRIEF HOSPITAL COURSE: Katheryn is a 79 y.o. Presenting from [place] for breakthrough seizure, Was found to meet [...] 01/27/2020 Peptic ulcer disease 01/27/2020 Seizure disorder ([facility]) 01/27/2020 Hospital Course: See discharge diagnoses list above and medication adjustments below in med rec.The patient is discharged in improved and stable condition. Consults: IP WOUND CARE NURSE CONSULT TO EVAL IP CONSULT TO NEUROLOGY Discharge Instructions: Diet: Dietary Orders (From admission, onward) Start Ordered 12/04/24122 Adult diet Regular Diet effective now Question: Diet type Answer: Regular 12/04/24121 Activity: as tolerated Recommended Outpatient Tests: Disposition: [...] Rate (L/min): 2 L/min LABS: Recent Labs 12/06/24 0454 12/07/24 0519 12/08/24 0358 NA 141 142 140 K 3.7 3.9 3.9 CL 110* 110* 108* CO2 BUN 12 12 10 CREATININE 0.64 0.64 0.64 GLUCOSE 87 90 87 CALCIUM 8.8 9.0 8.7* Recent Labs 12/06/24 0454 12/07/24 0519 12/08/24 0358 WBC 5.3 6.1 5.9 [...] known as: Refresh Plus cholecalciferol 50 MCG (2000 UT) capsule Commonly known as: Vitamin D-3 [...] Complexity: follow up within 7-14 calendar days (16874) [x] Severe Complexity: follow up within 7 calendar days (55662) Follow up Testing, Pending results or Referrals [...] within the above time frame. Signed: Denise Hiar DO Division of Hospitalist Medicine [facility] 12/08/2024, 11:02 AM documented in this encounter [facility] 12-08-2024 Hospital Discharge instructions Martine Glasgow [...] Emergency Contact: Danny Chino Mobile Relation: Brother Contract Runner needed? No Past Surgical History: No past [...] assistance Toileting Total assistance Feeding Minimal assistance Resource Economist Minimal assistance Med Delivery yes Wound Care [...] all that are sent with patient): clinton AYOUB SIGNATURE: MANAGEMENT/SOCIAL WORK SECTION Inpatient Status Date: 12/03/2024 [facility] Address: [address] [place] [address] Fax: Dialysis Facility (if applicable) Name: [facility] Address: Dialysis Schedule: Phone: Fax: Catering Truck Driver/Blow Pit Operator signature: ICIAN SECTION Name: Katheryn Chino Prognosis: good Condition at Discharge: stable Rehab Potential (if transferring to Rehab): good Recommended Labs or Other Treatments After Discharge: bmp, cbc 1 week The individual is being admitted to a nursing facility directly from an [facility] or a unit of a [facility] that is not operated by or licensed by [facility] under section 5119.14 or 5160-3-15.1 5 The individual requires the level of services provided by a nursing facility for the condition for which he or she was treated in the hospital and, Physician Certification: I certify the above information and transfer of Katheryn Chino is necessary for the continuing treatment of the diagnosis listed and that she requires correction facility for less than 30 days. Update Admission H&P: No change in H&P PHYSICIAN SIGNATURE: documented in this encounter [facility] 12-08-2024 Plan of care [...] Interventions Goal: Assess Nutritional Intake Outcome: Progressing [facility] [place] 12-07-2024 Note Hospitalist Progress Note 12/07/2024 Subjective: Admit Date: 12/03/2024 PCP: Orville Mendoza, DO Room#: [id number] A BRIEF HOSPITAL COURSE: Katheryn is a 79 y.o. Presenting from [place] for breakthrough seizure, Was found to meet [...] disorder (CMS/HCC) 01/27/2020 LABS: CBC: Recent Labs 12/05/24 0444 12/06/24 0454 12/07/24 0519 WBC 6.2 5.3 6.1 RBC 3.37* 3.66* 3.70* HGB 9.6* 10.5* 10.4* HCT 30.4* 33.0* 32.1* MCV 90.2 90.2 86.8 RDW 13.3 13.0 13.2 PLT 148 158 169 BMP: Recent Labs 12/05/24 0444 12/06/24 0454 12/07/24 0519 NA 141 141 142 K 3.8 3.7 3.9 CL 110* 110* 110* CO2 * 25 BUN 13 12 12 CREATININE 0.68 [...] enoxaparin and enco (more content not included)... [facility] 12-07-2024 History of Present illness Narrative Hospitalist Progress Note 12/07/2024 Subjective: Admit Date: 12/03/2024 PCP: Orville Mendoza, DO Room#: N3-499/[id number] A BRIEF HOSPITAL COURSE: Katheryn is a 79 y.o. Presenting from [place] for breakthrough seizure, Was found to meet [...] Intake/Output Summary (Last 24 hours) at 12/07/2024 08 Last data filed at 12/06/2024 0955 Gross per 24 hour Intake 300 ml Output 600 ml Net -300 ml Past Medical History: Past Medical History: Diagnosis Date Allergic rhinitis Dependent edema 01/27/2020 Essential hypertension 01/27/2020 Hypothyroidism 01/27/2020 Mental deficiency 01/27/2020 Peptic ulcer disease 01/27/2020 Seizure disorder (CMS/HCC) 01/27/2020 LABS: CBC: Recent Labs 12/05/244 12/06/24 0454 12/07/24 0519 WBC 6.2 5.3 6.1 RBC 3.37* 3.66* 3.70* HGB 9.6* 10.5* 10.4* HCT 30.4* 33.0* 32.1* MCV 90.2 90.2 86.8 RDW 13.3 13.0 13.2 PLT 148 158 169 BMP: Recent Labs 12/05/244 12/06/24 0454 12/07/24 0519 NA 141 141 [...] Extended Emergency Contact Information Primary Emergency Contact: LulúDanny Mobile Relation: Brother Contract Runner needed? No Denise Hair DO Division of Hospitalist Medicine [facility] Hospitalist Progress Note 12/06/2024 Subjective: Admit Date: 12/03/2024 PCP: Orville Mendoza DO Room#: [id number] A BRIEF HOSPITAL COURSE: Katheryn is a 79 y.o. Presenting from [place] for breakthrough seizure, Was found to meet [...] CBC: Recent Labs 12/04/24 0537 12/05/24 0444 12/06/244 WBC 7.5 6.2 5.3 RBC 3.56* 3.37* 3.66* HGB 10.3* 9.6* 10.5* HCT 31.7* 30.4* 33.0* MCV 89.0 90.2 90.2 RDW 13.4 13.3 13.0 PLT 150 148 158 BMP: Recent Labs 12/04/2437 12/05/2444312/06/24453 NA 140 141 141 K 3.8 3.8 [...] Emergency Contact: Danny Chino Mobile Relation: Brother Contract Runner needed? No Denise Hair DO Division of Hospitalist Medicine [facility] Nutrition Assessment Type and Reason [...] (appropriate for age) Fluid Accumulation: Mild Extremities Ui Application Developer Strength: Not Performed Nutrition Assessment: 79 y.o. female presented from [place] for breakthrough seizure, Was found to meet [...] On: Kcal/kg Weight Used for Energy Requirements: [place] Weight for Energy Calculation (kg): 52 kg Total Energy Requirements (kcals/day): 4300-2392 (25-30) Weight Used for Protein Requirements: [place] Weight in Kg Used for Protein Requirements: 52 kg Estimated Total Protein (g/day): 52-62 (1.0-1.2) Estimated Daily Total Fluid (ml/day): per MD Nutrition Related Findings: Lives with: Other (Comment) ([facility]), Orientation Level: Oriented X4, Cognition: [...] lb) (09/24/24 per review of OP notes) [place] Body Weight (lbs) (Calculated): 115 lbs [place] Body Weight (Kg) (Calculated): 52 kg Wt [...] Discharge Planning: Too soon to determine Jacki Franco MS RD LD Contact: Sxbbm or *[phone] Nutrition rescreen completed. Patient referred to the Dietitian due to wound consult for pressure injury. CLINTON Borden Hospitalist Progress Note 12/05/2024 Subjective: Admit Date: 12/03/2024 PCP: Orville Mendoza DO Room#: [id number] A BRIEF HOSPITAL COURSE: Katheryn is a 79 y.o. Presenting from [place] for breakthrough seizure, Was found to meet [...] 01/27/2020 Peptic ulcer disease 01/27/2020 Seizure disorder ([facility]) 01/27/2020 LABS: CBC: Recent Labs [...] Emergency Contact: Danny Chino Mobile Relation: Brother Contract Runner needed? No Denise Hair DO Division of Hospitalist Medicine [facility] General Neurology Follow-up Date of Service: 12/05/2024 [...] childhood) and cerebellar atrophy who presented to [facility] on 12/03 following witnessed seizure at facility. 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 Division of Hospitalist Medicine [facility] Images from the original note were not included. OCCUPATIONAL THERAPY [facility] Initial Evaluation Name/MRN: Katheryn Chino ([id number]) Evaluation Date: 12/04/2024 Date of : 1945 [...] 01/27/2020 Peptic ulcer disease 01/27/2020 Seizure disorder ([facility]) 01/27/2020 Past Surgical History: No past surgical history on file. Admission Diagnosis: Patient Active Problem List Diagnosis Date Noted Sepsis due to urinary tract infection ([facility]) 12/03/2024 Obesity, Class I, BMI 30-34.9 08/18/2024 Breakthrough seizure ([facility]) ([facility]) 08/17/2024 Dysarthria 08/07/2018 Ataxia 08/07/2018 Depression 10/26/2020 Cerebellar degeneration ([facility]) ([facility]) 10/26/2020 Other specified hypothyroidism 01/27/2020 Seizure disorder ([facility] ([facility]) 01/27/2020 Peptic ulcer disease 01/27/2020 [...] AxOx self and hospital Social/Functional History From [facility] and has been there for 11.5 [...] of Care supervision is transferred to a [facility] Occupational Therapist. Goals and/or treatment plan was established in collaboration with patient/family/other representatives. Mary Morataya OTR/L Images from the original note were not included. PHYSICAL THERAPY [facility] Initial Evaluation Name/MRN: Katheryn Chino ([id number]) Evaluation Date: 12/04/2024 Date of : 1945 Admission Date: 12/03/2024 6:35 PM Age: 79 y.o. Room/Bed: N3-351/N3351 A Discharge Recommendation: (return to facility (has [...] and mod of 1 to transfer to [facility]. Plan is to return to [facility]. Admitting Diagnosis: Sepsis due to UTI, [...] 01/27/2020 Peptic ulcer disease 01/27/2020 Seizure disorder ([facility]) 01/27/2020 Past Surgical History: No past surgical history on file. Admission Diagnosis: Patient Active Problem List Diagnosis Date Noted Sepsis due to urinary tract infection ([facility]) 12/03/2024 Obesity, Class I, BMI 30-34.9 08/18/2024 Breakthrough seizure ([facility] ([facility]) 08/17/2024 Dysarthria 08/07/2018 Ataxia 08/07/2018 Depression 10/26/2020 Cerebellar degeneration ([facility]) ([facility]) 10/26/2020 Other specified hypothyroidism 01/27/2020 Seizure disorder ([facility] ([facility]) 01/27/2020 Peptic ulcer disease 01/27/2020 [...] issues noted Hearing: normal Social/Functional History From [facility] and has been there for 11.5 [...] self corrected. Standing balance poor+ (2/10 Modified [place]) Bed Mobility: Supine to sit: Min Assist [...] Raw Score (No Stairs) : 11 [facility] Score: Transferred to chair/commode Plan Pt would [...] of Care supervision is transferred to a [facility] Physical Therapist. Goals and/or treatment plan was established in collaboration with patient/family/other representatives. documented in this encounter [facility] 12-07-2024 Plan of care note Problem: [...] Interventions Goal: Assess Nutritional Intake Outcome: Progressing [facility] 12-06-2024 Note Hospitalist Progress Note 12/06/2024 Subjective: Admit Date: 12/03/2024 PCP: Orville Mendoza DO Room#: N3-529/N3-514 A BRIEF HOSPITAL COURSE: Katheryn is a 79 y.o. Presenting from [place] for breakthrough seizure, Was found to meet [...] CBC: Recent Labs 12/04/24 0537 12/05/24 0444 12/06/244 WBC 7.5 6.2 5.3 RBC 3.56* 3.37* 3.66* HGB 10.3* 9.6* 10.5* HCT 31.7* 30.4* 33.0* MCV 89.0 90.2 90.2 RDW 13.4 13.3 13.0 PLT 150 148 158 BMP: Recent Labs 12/04/24 0537 12/05/24 0444 12/06/244 NA 140 141 141 K 3.8 3.8 [...] posing a threat (more content not included)... [facility] 12-06-2024 Note Nutrition Assessment Type and Reason [...] (appropriate for age) Fluid Accumulation: Mild Extremities Ui Application Developer Strength: Not Performed Nutrition Assessment: 79 y.o. female presented from [place] for breakthrough seizure, Was found to meet [...] On: Kcal/kg Weight Used for Energy Requirements: [place] Weight for Energy Calculation (kg): 52 kg Total Energy Requirements (kcals/day): 5431-9462 (25-30) Weight Used for Protein Requirements: [place] Weight in Kg Used for Protein Requirements: 52 kg Estimated Total Protein (g/day): 52-62 (1.0-1.2) Estimated Daily Total Fluid (ml/day): per MD Nutrition Related Findings: Lives with: Other (Comment) ([facility]), Orientation Level: Oriented X4, Cognition: [...] lb) (09/24/24 per review of OP notes) [place] Body Weight (lbs) (Calculated): 115 lbs [place] Body Weight (Kg) (Calculated): 52 kg Wt [...] greater, by n (more content not included)... [facility] 12-06-2024 Plan of care note Problem: Knowledge [...] by Maria Victoria Zapata RN Outcome: Progressing 12/06/20248 by Maria Victoria Zapata RN Outcome: Progressing Problem: Urinary Incontinence Goal: Perineal skin integrity is maintained or improved 12/06/2024514 by Maria Victoria Zapata RN Outcome: Progressing 12/06/202417 by Maria Victoria Zapata RN Outcome: Progressing [facility] 12-06-2024 Plan of care note Problem: Knowledge Deficit Goal: Patient/family/caregiver demonstrates understanding of disease process, treatment plan, medications, and discharge instructions Outcome: Progressing Problem: Potential for Compromised Skin Integrity Goal: Skin Integrity is Maintained or Improved Outcome: Progressing Goal: Nutritional status is improving Outcome: Progressing Problem: Urinary Incontinence Goal: Perineal skin integrity is maintained or improved Outcome: Progressing [facility] 12-05-2024 Note Formatting of this n ote might be different from the original. Pt adm from [facility] SNF/LTC, with Sepsis 2nd to UTI. Plan is to return. Facility will adm pt back skilled under Medicare. Called pt's brother Danny [phone] was called and updated. CM to follow. [facility] 12-05-2024 Note Formatting of this n ote might be different from the original. Pt adm from [facility] SNF/LTC, with Sepsis 2nd to UTI. Plan is to return. Facility will adm pt back skilled under Medicare. Called pt's brother Danny [phone] was called and updated. CM to follow. [facility] 12-05-2024 Telephone encounter Note Updated LCM 150mg BID rx faxed via [employer]ax to [facility]. Confirmation received. Silvia Rogers RN [facility] 12-05-2024 Miscellaneous Notes Updated LCM 150mg BID rx faxed via [employer]ax to [facility]. Confirmation received. Silvia Rogers RN The following approved medication requests have been transmitted electronically. Requested Prescriptions Signed Prescriptions Disp Refills lacosamide (VIMPAT) 150 mg tab 180 tablet 1 Sig: Take 1 tablet by mouth two times a day for 180 days. Authorizing Provider: ARTIS HAMILTON APRN.CNP Spoke with nurse Inman at [facility]. Informed her of recommendations to increase LCM to 150mg BID, with read back. Nurse requests rx to be faxed to the facility. [facility] PH: [phone] FAX : [phone] Silvia Rogers RN Called the patient's facility. Left message for the nurse to call back regarding recommendations. Silvia Rogers RN If no clear triggers will likely need to adjust doses. Would consider further increasing LCM to 150 mg BID Artis Hamilton APRN.SMALL CRAFT OPERATOR Seizure Call - spoke with nurse Inman. [facility] PH: [phone] FAX : [phone] Last Visit: 09/24/24 Next Visit: 01/15/25 Date [...] Other: patient was taken to local ED, [facility]. The patient will be transferred to [...] RN Received patients seizure monitoring sheet from [facility]. Uploaded to [employer] documented in this encounter [facility] 12-05-2024 Note Hospitalist Progress Note 12/05/2024 Subjective: Admit Date: 12/03/2024 PCP: Orville Mendoza DO Room#: N3-351/N3-312 A BRIEF HOSPITAL COURSE: Katheryn is a 79 y.o. Presenting from [place] for breakthrough seizure, Was found to meet [...] 01/27/2020 Peptic ulcer disease 01/27/2020 Seizure disorder ([facility]) 01/27/2020 LABS: CBC: Recent Labs [...] a threat t (more content not included)... [facility] 12-05-2024 Plan of care note Problem: Knowledge Deficit Goal: Patient/family/caregiver demonstrates understanding of disease process, treatment plan, medications, and discharge instructions Outcome: Progressing Problem: Potential for Compromised Skin Integrity Goal: Skin Integrity is Maintained or Improved Outcome: Progressing Goal: Nutritional status is improving Outcome: Progressing Problem: Urinary Incontinence Goal: Perineal skin integrity is maintained or improved Outcome: Progressing [facility] 12-04-2024 Telephone encounter Note The following approved medication requests have been transmitted electronically. Requested Prescriptions Signed Prescriptions Disp Refills lacosamide (VIMPAT) 150 mg tab 180 tablet 1 Sig: Take 1 tablet by mouth two times a day for 180 days. Authorizing Provider: ARTIS HAMILTON APRN.CNP [facility] 12-04-2024 Plan of care note Problem: Knowledge Deficit Goal: Patient/family/caregiver demonstrates understanding of disease process, treatment plan, medications, and discharge instructions Outcome: Progressing Problem: Potential for Compromised Skin Integrity Goal: Skin Integrity is Maintained or Improved Outcome: Progressing Goal: Nutritional status is improving Outcome: Progressing Problem: Urinary Incontinence Goal: Perineal skin integrity is maintained or improved Outcome: Progressing [facility] 12-04-2024 Telephone encounter Note Spoke with nurse Katia at [facility]. Informed her of recommendations to increase LCM to 150mg BID, with read back. Nurse requests rx to be faxed to the facility. [facility] PH: [phone] FAX : [phone] Silvia Rogers RN [facility] 12-04-2024 Telephone encounter Note Called the patient's facility. Left message for the nurse to call back regarding recommendations. Silvia Rogers RN [facility] 12-04-2024 Note Formatting of this n ote might be different from the original. Pt discussed 12-04-24 during interdisciplinary rounds. Pt admitted from [facility] due to seizures. Pt has a history of seizure disorder. No needs anticipated but SW available as needs arise. [facility] 12-04-2024 Note Formatting of this n ote might be different from the original. Pt discussed 12-04- during interdisciplinary rounds. Pt admitted from [facility] due to seizures. Pt has a history of seizure disorder. No needs anticipated but SW available as needs arise. [facility] 12-04-2024 Note OCCUPATIONAL THERAPY [facility] Initial Evaluation Name/MRN: Katheryn Chino ([id number]) Evaluation Date: 12/04/2024 Date of : 1945 [...] 01/27/2020 Peptic ulcer disease 01/27/2020 Seizure disorder ([facility]) 01/27/2020 Past Surgical History: No past surgical history on file. Admission Diagnosis: Patient Active Problem List Diagnosis Date Noted Sepsis due to urinary tract infection ([facility]) 12/03/2024 Obesity, Class I, BMI 30-34.9 08/18/2024 Breakthrough seizure ([facility]) ([facility]) 08/17/2024 Dysarthria 08/07/2018 Ataxia 08/07/2018 Depression 10/26/2020 Cerebellar degeneration ([facility]) ([facility]) 10/26/2020 Other specified hypothyroidism 01/27/2020 Seizure disorder ([facility]) ([facility]) 01/27/2020 Peptic ulcer disease 01/27/2020 [...] AxOx self and hospital Social/Functional History From [facility] and has been there for 11.5 [...] Daily Activity Raw Score: 18 ADL Inpatient [facility] G-Code Modifier: CK Plan Pt would benefit from skilled acute OT services to address Strengthening, ROM, Gait Training, Balance Training, Self-Care/ADL Training, Functional Mobility Training, Endurance Training, Safety Education and Training, Pain Management, Equipment Evaluation/Education, Cognitive Reorientation, Patient/Caregiver Training, Cognitive/Perceptual Training, and Positioning. Frequency: 2x/week for 4 weeks Barriers: Long standing deficits Safety/Education Safety Safety Devic (more content not included)... [facility] 12-04-2024 Nurse Note Wound Care consulted for Pressure Injury Prevention. Pt's Melo score= 16 on 2/20 Pt's pressure points assessed. Pt sitting in chair. OT present in room and assisted pt with standing for assessment of buttocks/coccyx. Pt's Heels, Buttocks/coccyx, Back, Elbows, Occiput and ears all intact. Prevention Measures in place, including: [place] sheet with pillows, Foam heel protectors (obtained [...] or concerns. Aliza Goins RN, BSN, CWCN [facility] 12-04-2024 Nurse Note Wound Care consulted for Pressure Injury Prevention. Pt's Melo score= 16 on 2/20 Pt's pressure points assessed. Pt sitting in chair. OT present in room and assisted pt with standing for assessment of buttocks/coccyx. Pt's Heels, Buttocks/coccyx, Back, Elbows, Occiput and ears all intact. Prevention Measures in place, including: [place] sheet with pillows, Foam heel protectors (obtained [...] or concerns. Aliza Goins, RN, BSN, CWCN documented in this encounter [facility] 12-04-2024 Note PHYSICAL THERAPY [facility] Initial Evaluation Name/MRN: Katheryn Chino ([id number]) Evaluation Date: 12/04/2024 Date of : 1945 Admission Date: 12/03/2024 6:35 PM Age: 79 y.o. Room/Bed: N3-351/N3351 A Discharge Recommendation: (return to facility (has [...] and mod [facility] Plan is to return to [facility]. Admitting Diagnosis: Sepsis due to UTI, [...] 08/07/2018 Ataxia 08/07/2018 Depression 10/26/2020 Cerebellar degeneration ([facility]) ([facility]) 10/26/2020 Other specified hypothyroidism 01/27/2020 Seizure disorder ([facility]) ([facility]) 01/27/2020 Peptic ulcer disease 01/27/2020 [...] issues noted Hearing: normal Social/Functional History From [facility] and has been there for 11.5 [...] self corrected. Standing balance poor+ (2/10 Modified [place]) Bed Mobility: Supine to sit: Min Assist [...] Raw Score (No Stairs) : 11 [facility] Score: Transferred to chair/commode Plan Pt would benefit from skilled acute PT services to address Strengthening, ROM, Balance Training, Functional Mobility Training, Endurance Training, Home Management Training, Patient/Caregiver Training, and (gait only if pt willing) . Frequency: 3x/week for 2 weeks Barriers: Impaired balance, Lower extremity weakness, Decreased endurance, Long (more content not included)... [facility] 12-04-2024 Consult note Associated Order (s): IP CONSULT TO NEUROLOGY General Neurology Consult Patient: Katheryn Chino Date of : 1945 Acct: [id number] PCP: Orville Mendoza DO Date of Admission: 12/03/2024 Date of Service: Pt seen/examined on 12/04/24 Chief Complaint: Breakthrough seizure History Of Present Illness: 79 y.o. female with past medical history significant for idiopathic generalized epilepsy (since childhood), cerebellar atrophy (on MRI in 2018, thought to be 2/2 chronic Dilantin use), wheelchair dependence, chronic dysarthria, hypothyroidism who presented from [facility] to [facility] 12/03 with complaint of breakthrough seizure. Patient follows with Dr. Jimenez from [facility] and has been having generalized tonic-clonic seizures and absence seizures since age [age]. Current AED regimen is supposed to be VPA 250mg TID, LCM 100mg BID, and ethosuximide 250mg BID. The patient is not able to provide any history from yesterday and denies any complaints at present. Per history obtained from RN at [facility] who witnessed event, it occurred yesterday morning [...] antibiotics. Social History: The patient currently lives [facility] Occupation None Drives: No TOBACCO: reports that [...] and change in bowel habits (RN from [facility] does report episode of emesis two days [...] at endpoints Left: Mild ataxia at endpoints Sjdc-Uhnu-Mdqw Right: normal Left: normal Rapid Alternating Movements Right: reduced speed Left: reduced speed Radiology: (personally reviewed) No head imaging done ASSESSMENT/PLAN: Summary: Patient is a 79 year old female with pertinent medical history of idiopathic epilepsy (since childhood) and cerebellar atrophy who presented to [facility] on 12/03 following witnessed seizure at facility. [...] have been done at OSH or at [facility]. - Infectious work-up and treatment per primary team. Suspect seizure occurred either due to lowered seizure threshold 11/16 infection vs medication non-adherence. - Check LCM level and free valproic acid level - Recommend the following AED regimen: - ethosuximide 250mg BID (outpatient dose) - VPA 500mg BID (discrepancy between last outpatient neurology note and MAR from [facility], so will average the two) - LCM continue 100mg qAM and increase nightly dose to 150mg - Will discontinue phenytoin as patient had stopped this medication as outpatient - Will need repeat AED levels in one week. Already established with neurology through [facility], so can follow-up with them as outpatient. [...] tremors sensation: intact to light touch cerebellar: [id number]-am-[id number] slow but intact gait: deferred secondary to [...] known history of generalized epilepsy-EEG unlikely to liner roll changer at this time -Some confusion about her [...] or meningismus -Will continue to monitor for CUSHION SEWER infectious symptoms I spent total time 80 minutes reviewing previous notes, test results, and face to face with the patient discussing the diagnosis and importance of compliance with the treatment plan as well as documenting on the day of the visit. [facility] 12-04-2024 Consult note Associated Order (s): IP CONSULT TO NEUROLOGY General Neurology Consult Patient: Katheryn Chino Date of : 1945 Acct: [id number] PCP: Orville Mendoza DO Date of Admission: 12/03/2024 Date of Service: Pt seen/examined on 12/04/24 Chief Complaint: Breakthrough seizure History Of Present Illness: 79 y.o. female with past medical history significant for idiopathic generalized epilepsy (since childhood), cerebellar atrophy (on MRI in 2018, thought to be 2/2 chronic Dilantin use), wheelchair dependence, chronic dysarthria, hypothyroidism who presented from [facility] to [facility] 12/03 with complaint of breakthrough seizure. Patient follows with Dr. Jimenez from [facility] and has been having generalized tonic-clonic seizures and absence seizures since age [age]. Current AED regimen is supposed to be VPA 250mg TID, LCM 100mg BID, and ethosuximide 250mg BID. The patient is not able to provide any history from yesterday and denies any complaints at present. Per history obtained from RN at [facility] who witnessed event, it occurred yesterday morning [...] antibiotics. Social History: The patient currently lives [facility] Occupation None Drives: No TOBACCO: reports that [...] and change in bowel habits (RN from [facility] does report episode of emesis two days [...] at endpoints Left: Mild ataxia at endpoints Luwt-Jwed-Bfhq Right: normal Left: normal Rapid Alternating Movements Right: reduced speed Left: reduced speed Radiology: (personally reviewed) No head imaging done ASSESSMENT/PLAN: Summary: Patient is a 79 year old female with pertinent medical history of idiopathic epilepsy (since childhood) and cerebellar atrophy who presented to [facility] on 12/03 following witnessed seizure at facility. [...] have been done at OSH or at [facility]. - Infectious work-up and treatment per primary team. Suspect seizure occurred either due to lowered seizure threshold 11/16 infection vs medication non-adherence. - Check LCM level and free valproic acid level - Recommend the following AED regimen: - ethosuximide 250mg BID (outpatient dose) - VPA 500mg BID (discrepancy between last outpatient neurology note and MAR from [facility], so will average the two) - LCM continue 100mg qAM and increase nightly dose to 150mg - Will discontinue phenytoin as patient had stopped this medication as outpatient - Will need repeat AED levels in one week. Already established with neurology through [facility], so can follow-up with them as outpatient. [...] tremors sensation: intact to light touch cerebellar: [id number]-mkel slow but intact gait: deferred secondary to [...] cognitive impairment, chronic dysarthria, hypothyroidism presents from [facility] with breakthrough seizure in the setting of n/v and recent changes to ADM regimen. Breakthrough seizure -In setting of emesis and recent changes to AED regimen -CT head negative for acute abn -Patient back to baseline and known history of generalized epilepsy-EEG unlikely to liner roll changer at this time -Some confusion about her [...] or meningismus -Will continue to monitor for CUSHION SEWER infectious symptoms I spent total time 80 minutes reviewing previous notes, test results, and face to face with the patient discussing the diagnosis and importance of compliance with the treatment plan as well as documenting on the day of the visit. documented in this encounter [facility] 12-04-2024 History and physical note Attending History and Physical Admit Date: 12/03/2024 PCP: Orville Mendoza DO CHIEF COMPLAINT: Breakthrough seizure Reason for Admission: Sepsis criteria 2/2 UTI as suspected source History Obtained From: patient HISTORY OF PRESENT ILLNESS: Katheryn is a 79 y.o. female with past medical history below who presents with chief complaint listed above. Presenting from [place] for breakthrough seizure, Was found to meet [...] Insecurity: No Food Insecurity (08/18/2024) Received from [facility] Hunger Vital Sign Worried About Running Out of Food in the Last Year: Never true Ran Out of Food in the Last Year: Never true Transportation Needs: No Transportation Needs (08/18/2024) Received from [facility] PRAPARE - Transportation Lack of Transportation (Medical): No Lack of Transportation (Non-Medical): No Physical Activity: Not on file Stress: Not on file Social Connections: Not on file Intimate Partner Violence: Not on file Housing Stability: Low Risk (08/18/2024) Received from [facility] Housing Stability Vital Sign Unable to Pay [...] Emergency Contact: Danny Chino Mobile Relation: Brother Contract Runner needed? No Fazal Garza MD Division of Hospital Medicine Inpatient Medical Services[place] 12-04-2024 Note Attending History an d Physical Admit Date: 12/03/2024 PCP: Orville Mendoza DO CHIEF COMPLAINT: Breakthrough seizure Reason for Admission: Sepsis criteria 2/2 UTI as suspected source History Obtained From: patient HISTORY OF PRESENT ILLNESS: Katheryn is a 79 y.o. female with past medical history below who presents with chief complaint listed above. Presenting from [place] for breakthrough seizure, Was found to meet [...] Insecurity: No Food Insecurity (08/18/2024) Received from [facility] Hunger Vital Sign Worried About Running Out of Food in the Last Year: Never true Ran Out of Food in the Last Year: Never true Transportation Needs: No Transportation Needs (08/18/2024) Received from [facility] PRAPARE - Transportation Lack of Transportation (Medical): No Lack of Transportation (Non-Medical): No Physical Activity: Not on file Stress: Not on file Social Connections: Not on file Intimate Partner Violence: Not on file Housing Stability: Low Risk (08/18/2024) Received from [facility] Housing Stability Vital Sign Unable to Pay [...] eval & mg (more content not included)... [facility] 12-04-2024 History and physical note Attending History and Physical Admit Date: 12/03/2024 PCP: Orville Mendoza DO CHIEF COMPLAINT: Breakthrough seizure Reason for Admission: Sepsis criteria 2/2 UTI as suspected source History Obtained From: patient HISTORY OF PRESENT ILLNESS: Katheryn is a 79 y.o. female with past medical history below who presents with chief complaint listed above. Presenting from [place] for breakthrough seizure, Was found to meet [...] Insecurity: No Food Insecurity (08/18/2024) Received from [facility] Hunger Vital Sign Worried About Running Out of Food in the Last Year: Never true Ran Out of Food in the Last Year: Never true Transportation Needs: No Transportation Needs (08/18/2024) Received from [facility] PRAPARE - Transportation Lack of Transportation (Medical): No Lack of Transportation (Non-Medical): No Physical Activity: Not on file Stress: Not on file Social Connections: Not on file Intimate Partner Violence: Not on file Housing Stability: Low Risk (08/18/2024) Received from [facility] Housing Stability Vital Sign Unable to Pay [...] Emergency Contact: Danny Chino Mobile Relation: Brother Contract Runner needed? No Fazal Garza MD Division of Hospital Medicine [place]patient Medical Services[place] documented in this encounter [facility] 12-03-2024 Emergency department Note Emergency Department Encounter [facility] EMERGENCY DEPT Patient: Katheryn Chino : 1945 [...] the emergency department as a transfer from [place] for breakthrough seizure. Patient reports she has [...] for clarification.) Miriam Hennessy DO [employer] Miriam Hennessy DO 12/04/24 0003 EMERGENCY DEPARTMENT ENCOUNTER Pt Name: Katheryn Chino Birthdate 1945 Date of evaluation: 12/03/2024 ED Provider: Rancho Diamond PA-C CHIEF COMPLAINT Chief Complaint Patient presents with Seizures [place] transfer. Pt from [facility] for 38 minute witnessed seizure this [...] the seizure. They did take her to [facility] where she was supposedly observed there [...] Insecurity: No Food Insecurity (08/18/2024) Received from [facility] Hunger Vital Sign Worried About Running Out of Food in the Last Year: Never true Ran Out of Food in the Last Year: Never true Transportation Needs: No Transportation Needs (08/18/2024) Received from [facility] PRAPARE - Transportation Lack of Transportation (Medical): No Lack of Transportation (Non-Medical): No Housing Stability: Low Risk (08/18/2024) Received from [facility] Housing Stability Vital Sign Unable to Pay for Housing in the Last Year: No Number of Times Moved in the Last Year: 0 Homeless in the Last Year: No SCREENINGS Tiny Coma Scale Best Eye Response: Spontaneous Best Verbal Response: Confused Best Motor Response: Follows commands Brandon Coma Scale Score: 14 PHYSICAL EXAM ED [...] XII are grossly intact. Normal finger-nose and bjjh-gc-wijr. Speech is clear and appropriate. Normal level [...] Culture. Procedure Abnormality Status --------- ------ Complete Urinalysis[[id number]] Abnormal Final result Please view results for [...] Septic Shock. No data found. Recent Labs 12/03/240 WBC 10.9* LACTATE 1.6 CREATININE 0.82 BILITOT [...] Emergency Medicine Provider Rancho Diamond PA-C 12/03/24 [id number] Cosigned by Miriam Hennessy DO at 12/04/2024 12:54 AM EST documented in this encounter [facility] 12-03-2024 Physician Emergency department Note Emergency Department Encounter [facility] EMERGENCY DEPT Patient: Katheryn Chino : 1945 [...] the emergency department as a transfer from [place] for breakthrough seizure. Patient reports she has [...] for clarification.) Miriam Hennessy DO [employer] Miriam Hennessy DO 12/04/24 0003 [employer] Phone: 12-03-2024 Physician Emergency department Note EMERGENCY DEPARTMENT ENCOUNTER Pt Name: Katheryn Chino Birthdate 1945 Date of evaluation: 12/03/2024 ED Provider: Rancho Diamond PA-C CHIEF COMPLAINT Chief Complaint Patient presents with Seizures [place] transfer. Pt from [facility] SNF for 38 minute witnessed seizure [...] the seizure. They did take her to [facility] where she was supposedly observed there [...] Insecurity: No Food Insecurity (08/18/2024) Received from [facility] Vital Sign Worried About Running Out of Food in the Last Year: Never true Ran Out of Food in the Last Year: Never true Transportation Needs: No Transportation Needs (08/18/2024) Received from [facility] PRAPARE - Transportation Lack of Transportation (Medical): No Lack of Transportation (Non-Medical): No Housing Stability: Low Risk (08/18/2024) Received from [facility] Housing Stability Vital Sign Unable to Pay for Housing in the Last Year: No Number of Times Moved in the Last Year: 0 Homeless in the Last Year: No SCREENINGS Brandon Coma Scale Best Eye Response: Spontaneous Best Verbal Response: Confused Best Motor Response: Follows commands Brandon Coma Scale Score: 14 PHYSICAL EXAM ED [...] XII are grossly intact. Normal finger-nose and ydrx-kz-mvmo. Speech is clear and appropriate. Normal level of consciousness. Gait and coordination are normal. 5/5 strength in all extremities. DIAGNOSTIC RESULTS Procedures/EKG: EKG was reviewed by myself. [facility] RAD[facility]Y (Per Emergency Physician): CT of the [...] Culture. Procedure Abnormality Status --------- ------ Complete Urinalysis[[id number]] Abnormal Final result Please view results for [...] Emergency Medicine Provider Rancho Diamond PA-C 12/03/24 [id number] Cosigned by Miriam Hennessy DO at 12/04/2024 12:54 AM EST [facility] 12-03-2024 Telephone encounter Note If no clear triggers will likely need to adjust doses. Would consider further increasing LCM to 150 mg BID Artis Hamilton APRN.SMALL CRAFT OPERATOR [facility] 12-03-2024 Telephone encounter Note Seizure Call - spoke with nurse Inman. [facility] PH: [phone] FAX : [phone] Last Visit: 09/24/24 Next Visit: 01/15/25 Date [...] Other: patient was taken to local ED, [facility]. The patient will be transferred to [...] to MARIO 2 pool Silvia Rogers RN [facility] 12-03-2024 Telephone encounter Note Received patients seizure monitoring sheet from [facility]. Uploaded to [employer] [facility] 12-02-2024 Telephone encounter Note Spoke with nurse Becker from patient's facility. Informed her of message per Dr. Jimenez with read back. Informed her rheumatology consult was faxed along with DEXA scan report. Consult and DEXA report faxed via [employer] to: [facility] PH: [phone] FAX : [phone] Confirmation received. Silvia Rogers RN [facility] 12-02-2024 Miscellaneous Notes Spoke with nurse Monroelena from patient's facility. Informed her of message per Dr. Jimenez with read back. Informed her rheumatology consult was faxed along with DEXA scan report. Consult and DEXA report faxed via [employer] to: [facility] PH: [phone] FAX : [phone] Confirmation received. Silvia Rogers RN Per Dr. Jimenez, This patient's bone scan showed osteoporosis. I placed a consult to Rheumatology to manage this. Can you please let the patient know. Thanks KMG ==== Silvia Rogers RN documented in this encounter [facility] 12-01-2024 Telephone encounter Note Per Dr. Jimenez, This patient's bone scan showed osteoporosis. I placed a consult to Rheumatology to manage this. Can you please let the patient know. Thanks KMG ==== Silvia Rogers RN [facility] 12-01-2024 Telephone encounter Note Provider referred patient to rheumatology. I placed into protal under ref# [id number] [facility] Work Phone: 12-01-2024 Miscellaneous Notes Provider referred patient to rheumatology. I placed into protal under ref# [id number] documented in this encounter [facility] 11-26-2024 History of Present illness Narrative Radiology [...] PATIENT PRESENTS WITH AN IMPLANTABLE OR ATTACHED PROVIDER RELATIONS COORDINATOR: No RADIOLOGY DEPARTMENT: Bone Density PERIPHERAL IV DATA: Not applicable SIGNED BY: RT Nancy(Kimberley) November 26, 2024 11:04 AM documented in this encounter [facility] 11-26-2024 Note HNO ID: [id number] Author: KATIA HARRISON RT(R) Service: Radiology Author Type: Technologist Type: Progress [...] PATIENT PRESENTS WITH AN IMPLANTABLE OR ATTACHED PROVIDER RELATIONS COORDINATOR: No RADIOLOGY DEPARTMENT: Bone Density PERIPHERAL IV DATA: Not applicable SIGNED BY: KENDAL Cruz) November 26, 2024 11:04 AM [facility] 11-11-2024 Telephone encounter Note The following approved [...] spray 2 Each 0 Sig: Use 1 [place] in the nose as needed for seizures lasting longer than 3 minutes for up to 90 days. May repeat dose in alternate nostril after 10 minutes based on response and tolerability. Authorizing Provider: ARTIS HAMILTON APRN.SMALL CRAFT OPERATOR [facility] 11-11-2024 Miscellaneous Notes The following approved medication [...] spray 2 Each 0 Sig: Use 1 [place] in the nose as needed for seizures lasting longer than 3 minutes for up to 90 days. May repeat dose in alternate nostril after 10 minutes based on response and tolerability. Authorizing Provider: ARTIS HAMILTON APRN.SMALL CRAFT OPERATOR Prescription request for alternate pharmacy. Prescriptions sent to incorrect pharamcy / Please re-send to [facility] for all 3 medications Prescription Refill: Requested by: Rosita @ [facility] Please E-Scribe Caller Contact Number: [phone] Pharmacy Name: [place], [place] Pharmacy Number: [phone] Generic/ brand: generic 30 or 90 day supply requested: 90 Last appointment: 09/24/2024 Next Appointment: none Patient of Dr[facility] Erin Chino [id number] [facility] [id number] documented in this encounter [facility] 11-11-2024 Telephone encounter Note Prescription request for alternate pharmacy. Prescriptions sent to incorrect pharamcy / Please re-send to [facility] for all 3 medications Prescription Refill: Requested by: Rosita @ [facility] Please E-Scribe Caller Contact Number: [phone] Pharmacy Name: [place], [place] Pharmacy Number: [phone] Generic/ brand: generic 30 or 90 day supply requested: 90 Last appointment: 09/24/2024 Next Appointment: none Patient of Dr. Erin Chino [id number] [facility] [address] [facility] 11-11-2024 Telephone encounter Note Noted. Spoke with nurse Obando, recommendations provided per [facility]. Letter, copies of LCM, Nayzilam spray faxed to facility. See 11/10/24 phone encounter. Silvia Rogers RN [facility] 11-11-2024 Miscellaneous Notes Noted. Spoke with nurse Obando, recommendations provided per [facility]. Letter, copies of LCM, Nayzilam spray faxed to facility. See 11/10/24 phone encounter. Silvia Rogers RN Received Seizure monitoring report from [facility]. Uploaded to [employer]. documented in this encounter [facility] 11-11-2024 Telephone encounter Note Received Seizure monitoring report from [facility]. Uploaded to [employer]. [facility] 11-11-2024 Telephone encounter Note The following approved medication requests have been transmitted electronically. Requested Prescriptions Signed Prescriptions Disp Refills midazolam (NAYZILAM) 5 mg/spray (0.1 mL) nasal spray 2 Each 0 Sig: Use 1 [place] in the nose as needed for seizures [...] for 180 days. Authorizing Provider: ARTIS HAMILTON APRN.SMALL CRAFT OPERATOR [facility] 11-11-2024 Miscellaneous Notes The following approved medication requests have been transmitted electronically. Requested Prescriptions Signed Prescriptions Disp Refills midazolam (NAYZILAM) 5 mg/spray (0.1 mL) nasal spray 2 Each 0 Sig: Use 1 [place] in the nose as needed for seizures [...] for 180 days. Authorizing Provider: ARTIS HAMILTON APRN.SMALL CRAFT OPERATOR Spoke with nurse, Gisella. Informed of recommendations, [...] 4: LCM 100/100, stop PHT Artis Hamilton APRN.SMALL CRAFT OPERATOR [facility] 09/24/24 IMPRESSION: Ms.Patricia Chino is a 79-year-old [...] rescue medication, nurse is requesting. Forwarded to [facility] [employer] for review. Silvia Rogers RN Seizure activity: Name of Caller : [facility] where pt resides Relationship to patient: Caregiver Contact phone number: [phone] Date of seizure: 11/07/24 Duration: 20 minutes Back to Baseline (Yes/No): yes Emergency treatment needed (Yes/No): no Patient of Dr. Jimenez documented in this encounter [facility] 11-10-2024 Telephone encounter Note Spoke with nurse, Gisella. Informed of recommendations, gave verbal of rx LCM titration, PHT wean with read back. She is requesting copy of rx sent to their facility. Silvia Rogers RN [facility] 11-10-2024 Telephone encounter Note Script for Nayzilam [...] 4: LCM 100/100, stop PHT Artis Hamilton APRN.SMALL CRAFT OPERATOR [facility] 11-10-2024 Telephone encounter Note See 11/10/24 phone encounter. Silvia Rogers RN [facility] 11-10-2024 Miscellaneous Notes See 11/10/24 phone encounter. Silvia Rogers RN General call : Full name of person calling: [facility] room Relationship to patient: Phone # : Reason for call: seizure monitoring report Patient of Dr. Jimenez upload documented in this encounter [facility] 11-10-2024 Telephone encounter Note [facility] 09/24/24 IMPRESSION: Ms.Patricia Chino is a 79-year-old [...] rescue medication, nurse is requesting. Forwarded to [facility] [employer] for review. Silvia Rogers, MEGA [facility] 11-10-2024 Telephone encounter Note Seizure activity: Name of Caller : Dimitri Becker [place] where pt resides Relationship to patient: Caregiver Contact phone number: [phone] Date of seizure: 11/07/24 Duration: 20 minutes Back to Baseline (Yes/No): yes Emergency treatment needed (Yes/No): no Patient of Dr. Jimenez [facility] 11-07-2024 Telephone encounter Note General call : Full name of person calling: [facility] Relationship to patient: Phone # : Reason for call: seizure monitoring report Patient of Dr. Jimenez upload [facility] 09-26-2024 Telephone encounter Note Spoke with Taryn, patient's nurse - provided medication recommendations - she verbalizes understanding via teachback Sherrell Bojorquez RN [facility] Work Phone: 09-26-2024 Miscellaneous Notes Spoke with Taryn, patient's nurse - provided medication recommendations - she verbalizes understanding via teachback Sherrell Bojorquez RN Levels reviewed, VPA still mildly elevated- would decrease dose to 500 mg TID. Can continue other doses unchanged Artis Hamilton APRN.SMALL CRAFT OPERATOR Images from the original note were not included. Per patient's nurse, Katia - recent labs are trough No ETH level completed Current ASMs: PHT 100 mg BID VPA 750 mg TID ETH 250 mg BID Forwarded to [facility] [employer] for review/recommendation Sherrell Bojorquez RN Per MALCOLM of 09/24/2024 w/Dr. Jimenez The doses listed on facility paperwork are different than what was listed on discharge summary at [facility]. Called the facility and confirmed the [...] to Vimpat, zonisamide. documented in this encounter [facility] 09-26-2024 Telephone encounter Note Levels reviewed, VPA still mildly elevated- would decrease dose to 500 mg TID. Can continue other doses unchanged Artis Hamilton APRN.SMALL CRAFT OPERATOR [facility] 09-26-2024 Telephone encounter Note Images from the original note were not included. Per patient's nurse, Katia - recent labs are trough No ETH level completed Current ASMs: PHT 100 mg BID VPA 750 mg TID ETH 250 mg BID Forwarded to [address] for review/recommendation Sherrell Bojorquez RN Per MALCOLM of 09/24/2024 w/Dr. Jimenez The doses listed on facility paperwork are different than what was listed on discharge summary at [facility]. Called the facility and confirmed the [...] Future options: Switch Dilantin to Vimpat, zonisamide. [facility] 09-24-2024 Note HNO ID: [id number] Author: JAYANT JIMENEZ MD Service: ? Author Type: Physician Type: Progress Notes Filed: 09/24/2024 11:19 Note Text: [facility] Patient Name: Katheryn GARCIA Date of : 1945 INITIAL EPILEPSY CLINIC NOTE 09/24/2024 8:00 AM CHIEF COMPLAINT: New Patient and Epilepsy HISTORY OF PRESENT ILLNESS Ms. Chino is a 79 year old female seen in [facility] for initial consultation. [...] with AEDs . [place] and she has more suervison with AEDs [...] it lasted ~ 25 mins). Admitted to [facility] where Dilantin and Depakote levels were low. Doses were adjusted- PHT 100 mg TID and VPA 1000 mg TID. Zarontin was continued at 250 mg BID. Interval Seizure History The doses listed on facility paperwork are different than what was listed on discharge summary at [facility]. Called the facility and confirmed the [...] - Seizure risk factors: Brain Tumor Unanswered CUSHION SEWER Infections Unanswered Developmental Delay Unanswered Family history [...] by mouth. Alumin (more content not included)... [facility] 09-24-2024 History of Present illness Narrative [facility] Patient Name: Katheryn GARCIA Date of : 1945 INITIAL EPILEPSY CLINIC NOTE 09/24/2024 8:00 AM CHIEF COMPLAINT: New Patient and Epilepsy HISTORY OF PRESENT ILLNESS Ms. Chino is a 79 year old female seen in [facility] for initial consultation. [...] with AEDs . [place] and she has more suervison with AEDs [...] it lasted ~ 25 mins). Admitted to [facility] where Dilantin and Depakote levels were low. Doses were adjusted- PHT 100 mg TID and VPA 1000 mg TID. Zarontin was continued at 250 mg BID. Interval Seizure History The doses listed on facility paperwork are different than what was listed on discharge summary at [facility]. Called the facility and confirmed the [...] - Seizure risk factors: Brain Tumor Unanswered CUSHION SEWER Infections Unanswered Developmental Delay Unanswered Family history [...] Breast Cancer Mother SOCIAL HISTORY: -Lives in [place], [place] -Patient lives alone? -Vocation: -Education: -Cigarette, [...] impaired coordination greater on the right on [id number] testing Postural and action tremor in both [...] precautions - No driving in the state [facility] until seizure free for 6 months. [...] which included: preparing to see the patient [id number] patient care completing clinical documentation obtaining and/or reviewing separately obtained history performing a medically appropriate examination counseling and educating the patient/family/caregiver ordering medications, tests, or procedures Jayant Jimenez MD cc: Primary Care Physician: Orville Mendoza, [address] [place] [address] Referring: Patient: Ms. Katheryn Chino [id number] [address] [phone] documented in this encounter [facility] 09-24-2024 Instructions Jayant Jimenez MD - 09/24/2024 8:56 AM EST Summary of the things we discussed today: We will check blood level of your seizure medications as well as Ammonia (needs to be done at [facility]) I will order a bone scan called DEXA to see if you have suffered osteoporosis due to senior care use of seizure medications. Reduce the morning [...] precautions - No driving in the state [facility] until seizure free for 6 months. [...] factor. Jayant Jimenez MD Associate Staff, Epilepsy [facility] September 24, 2024 Office phone: [phone] BONE MINERAL DENSITY PATIENT INSTRUCTIONS ======= Bone [...] usual activities immediately. documented in this encounter [facility] 09-22-2024 Telephone encounter Note See 09/05/24 phone encounter PHT 21.9 Range 10 - 20 Taking PHT 100 mg BID Silvia Rogers RN [facility] 09-22-2024 Miscellaneous Notes See 09/05/24 phone encounter PHT 21.9 Range 10 - 20 Taking PHT 100 mg BID Silvia Rogers RN OUTSIDE LAB REPORT FACILITY NAME: [facility] PHONE/FAX: [phone] / [phone] COLLECTION DATE AND TIME: 09/19/2024 - 06:15 Uploaded to [employer] documented in this encounter [facility] 09-19-2024 Telephone encounter Note OUTSIDE LAB REPORT FACILITY NAME: [facility] PHONE/FAX: [phone] / [phone] COLLECTION DATE AND TIME: 09/19/2024 - 06:15 Uploaded to [employer] [facility] 09-05-2024 Telephone encounter Note [facility] [employer] [place] - provided recommendation/she verbalizes understanding. Sherrell Bojorquez RN [facility] Work Phone: 09-05-2024 Miscellaneous Notes Spoke with nurse Renae, [facility] - provided recommendation/she verbalizes understanding. Sherrell Bojorquez RN Pt can continue current doses. Artis Hamilton APRN.SMALL CRAFT OPERATOR Images from the original note were not included. Patient update per nurse Renae, [facility]: - Last known seizure: 08/17/2024 - labs [...] trough NOV: 09/24/2024 w/Dr. Jimenez Forwarded to [facility] [employer] for review Sherrell Bojorquez RN Per neurology [...] the same. -F/U Epilepsy as outpatient. Called [facility] - left message for nursing staff to contact office Sherrell Bojorquez RN Form received: From (agency / facility / parent): [facility] personal fitness manager (if given): Brea Malloy RN Phone #: [phone] Fax # : [phone] Email: n/a Information requested: Review Labs Collected 09/05/2024 - 05:30 for Valproic Acid and Dilantin and approval for medication dosages Patient of Dr. Jimenez Forwarded to nurse. Also uploaded to [employer]. documented in this encounter [facility] 09-05-2024 Telephone encounter Note Pt can continue current doses. Artis Hamilton APRN.SMALL CRAFT OPERATOR [facility] Work Phone: 09-05-2024 Telephone encounter Note Images from the original note were not included. Patient update per nurse Renae, [facility] Home: - Last known seizure: 08/17/2024 - labs [...] trough NOV: 09/24/2024 w/Dr. Jimenez Forwarded to [facility] 2 harbinger for review Sherrell Bojorquez RN Per neurology [...] Continue the same. -F/U Epilepsy as outpatient. [facility] 09-05-2024 Telephone encounter Note Called [facility] - left message for nursing staff to contact office Sherrell Bojorquez RN [facility] 09-05-2024 Telephone encounter Note Form received: From (agency / facility / parent): [facility] personal fitness manager (if given): Brea Malloy RN Phone #: [phone] Fax # : [phone] Email: n/a Information requested: Review Labs Collected 09/05/2024 - 05:30 for Valproic Acid and Dilantin and approval for medication dosages Patient of Dr. Jimenez Forwarded to nurse. Also uploaded to [employer]. [facility] 08-29-2024 Telephone encounter Note Spoke with nurse Kendrick at facility. Informed to continue with current asm dose. Silvia Rogers RN [facility] 08-29-2024 Miscellaneous Notes Spoke with nurse Kendrick at facility. Informed to continue with current asm dose. Silvia Rogers RN Level reviewed - pt should continue current dose Artis Hamilton APRN.SMALL CRAFT OPERATOR Spoke with Mima no further seizures to report and no side effect or medication issues to report. She is doing fine at this time. routed for review Sandra Casey RN Mima of [facility] returning Nurse call. Please call [phone] VPA: 08/27/2024 at 04:55 104: (? to 100) VAP 1000 mg: TID (was increased from 750 mg during recent hospitalization). Previous level ws 94 on 08/06/2024 ======== 08/17/2024 to 08/20/2024 [facility] ======== was patient of Dr. Pereira's last seen 09/01/[address] Jimenez on 09/24/2024: new consult ========= Call placed to [facility] [phone] Jimenez's number given to call back Sandra Casey RN OUTSIDE LAB REPORT FACILITY NAME [facility] PHONE/FAX COLLECTION DATE AND TIME: 08/26/24 0455 Uploaded to Epic Pt scheduled for N/C w/ Dr. Jimenez documented in this encounter [facility] 08-29-2024 Telephone encounter Note Level reviewed - pt should continue current dose Artis Hamilton APRN.DWAYNE [facility] Work Phone: 08-29-2024 Telephone encounter Note Spoke with Mmia no further seizures to report and no side effect or medication issues to report. She is doing fine at this time. routed for review Sandra Casey RN [facility] 08-29-2024 Telephone encounter Note Mima of [facility] returning Nurse call. Please call [phone] [facility] 08-28-2024 Telephone encounter Note VPA: 08/27/2024 at 04:55 104: (? to 100) VAP 1000 mg: TID (was increased from 750 mg during recent hospitalization). Previous level ws 94 on 08/06/2024 ======== 08/17/2024 to 08/20/2024 [facility] ======== was patient of Dr. Pereira's last seen 09/01/[address] Jimenez on 09/24/2024: new consult ========= Call placed to [facility] [phone] Jimenez's number given to call back Sandra Caesy RN [facility] 08-27-2024 Telephone encounter Note OUTSIDE LAB REPORT FACILITY NAME [facility] PHONE/FAX COLLECTION DATE AND TIME: 08/26/24 0455 Uploaded to [employer] Pt scheduled for N/C w/ Dr. Jimenez [facility] 08-20-2024 Note HNO ID: [id number] Author: NO BENNETT RPh Service: Pharmacy Author [...] list. Pt to be discharged back to F, AEDs adjusted as recommended per neurology: -Phenytoin 100 mg TID -Valproic acid 1000 mg TID -Ethosuximide 250 mg BID No additional recommendations. No Bennett [facility] Pager: [phone] 08/20/2024 11:36 AM Medication List START taking [...] 250 mg capsule Commonly known as: DEPAKENE [facility] 08-20-2024 Note HNO ID: [id number] Author: LOLITA SALAZAR RN Service: Care Management Author Type: Registered Nurse Type: Care Mgt Progress Note Filed: 08/20/2024 11:33 Note Text: CARE MANAGEMENT DISCHARGE NOTE SERVICE DATE: August 20, 2024 SERVICE TIME: 11:32 AM Admission Date: 08/17/2024 LOS: 3 days Discharge Arrangement Discharge Arrangement: Extended Care Facility Provider Name: Noel Mosley, Caregiver Assessment Caregiver is ready, willing and able to meet the patient's needs as recommended by the inter-professional team: Yes Name of Caregiver: ECF Transportation Arrangements Transportation Arrangements: Ambulance Transportation Agency and Phone #:: [facility] ( [facility] ) [phone] / [phone] Date of Trip: 08/20/24 Time of Trip: 1200 Type of Service: BLS Non-emergency Is Patient Medicaid Pending?: No Was transportation financial coverage discussed with family?: Family Frog Or Oyster Farmworker Location: [facility] Destination: [facility] Financial Care Management Responsibility: None Handoff Communication: Handoff to: Primary Care Physician Primary Care Physician Name/Phone: Orville Mendoza DO, Additional Information: Discharge Information Row Name Admission (Current) from 08/17/2024 in [place] [address] NEURO/CARD Senior Living Facility Agency [facility] Uatsdin Pt is being discharged to [facility]. Danny, brother, updated and agreeable. Discharge instructions sent via [employer]. Discharge packet is on pt's chart. RN report number is [phone]. [facility] transport scheduled for 08/20 at 12PM. SIGNATURE: Lolita Salazar RN, BSN PATIENT NAME: Katheryn Chino DATE: August 20, 2024 TIME: 11:32 AM CONTACT #: [phone] [facility] 08-19-2024 Note HNO ID: [id number] Author: ROXI MONTILLA RN Service: Nursing Author Type: Registered Nurse Type: Nursing Progress Note Filed: 08/19/2024 18:35 Note Text: Other: tele order d/c and cleaned and placed at the nurses station. [facility] 08-19-2024 Note SARS-COV-2 (AGENT OF COVID-19) RNA: Not detected INFLUENZA A RNA: Not detected INFLUENZA B RNA: Not detected RESPIRATORY SYNCYTIAL VIRUS (RSV) RNA: Not detected [facility] Comment on above: Performed By: #### 9 [id number] ####[facility] [id number] [address] OF [place] 08-19-2024 Note HNO ID: [id number] Author: LOLITA SALAZAR RN Service: Care Management Author Type: Registered Nurse Type: Care Mgt Progress Note Filed: 08/19/2024 15:11 Note Text: CARE MANAGEMENT PROGRESS NOTE SERVICE DATE: 08/19/2024 SERVICE TIME: 2:43 PM LOS: 2 days Needs Prior to Discharge: Other: See Comment (Medical stability) IMM Follow Up Copy Given: Yes Copy given to:: Patient Fisheries Manager Fisheries Manager Name/Relationship: brother Delgado Method: By Phone Per MD, pt is medically ready for discharge. CM spoke with Roxi ([phone]) at [facility]. Pt is able to return, but [facility]. Referral sent again. [facility] transport scheduled for 08/19 at 9:30PM. QUINN updated Roxi regarding transport time, Roxi states they are unable to accept pt back at that time. [facility] transport rescheduled for 08/20 at 12PM, discharge packet is on pt's chart. Roxi updated and agreeable. Dr. Dominguez and bedside RN updated. QUINN spoke with brother Delgado, updated and agreeable. Update 1510: [facility] requested pt return skilled and will need PT/OT evals. PT/OT are not ordered, Dr. Dominguez notified of their request. April also requested a COVID test, Dr. Dominguez notified. SIGNATURE: Lolita Salazar RN, BSN PATIENT NAME: Katheryn Chino DATE: August 19, 2024 TIME: 2:43 PM PAGER/CONTACT #: [phone] [facility] 08-19-2024 Note HNO ID: [id number] Author: CARYL DOMINGUEZ DO Service: Hospital Medicine Author Type: Physician Type: Progress Notes Filed: 08/19/2024 14:58 Note Text: DEPARTMENT OF HOSPITAL MEDICINE PROGRESS NOTE SERVICE DATE: 08/19/2024 SERVICE TIME: 2:35 PM Hospital Medicine/Primary Attending: Caryl Dominguez DO NIGHT AND WEEKEND COVERAGE: PECONIC COVERAGE: After 7pm, please call cross cover pager #[phone] Subjective Patient denies complaints, watching the hallmark channel INTERVAL HPI: 79 y/o female with PMHx of Epilepsy who was transfer to [facility] due to breakthrough seizure. Phenytoin and Valproic [...] Drains, and Airways Line Duration Peripheral 08/17/242115 [facility] Short Left Antecubital 20 Gauge 1 [...] VTE Prophylaxis/Anticoagulants 08/17/242229 vte current anticoag therapy (wi,nd) 08/17/242229 activity - mobilize patient ([place], [place]) VTE Prophylaxis: VTE prophylaxis appropriate Disposition: Home Plan of care discussed with: Provider, RN, Patient SIGNATURE: Caryl Dominguez DO PATIENT NAME: Katheryn Chino DATE: August 19, 2024 TIME: 2:35 PM etx [id number] [facility] 08-18-2024 Note HNO ID: [id number] Author: VANESSA LAWSON RN Service: Care Management Author Type: Registered Nurse Type: Care Mgt Initial Assessment Filed: 08/18/2024 14:19 Note Text: CARE MANAGEMENT: ASSESSMENT AND DISCHARGE PLAN SERVICE DATE: August 18, 2024 SERVICE TIME: 2:16 PM PCP: Orville Mendoza DO Primary Contact: Extended Emergency Contact Information Primary Emergency Contact: Danny Chino [place] Mobile Relation: Brother Admission Status: Inpatient Insurance Provider: MEDICARE A AND B Discharge Planning requested by: Per Department Practice Potential Transition Plans Senior Living Facility/Intermediate Care Facility Advance Directives Current Advance Directive: Health Care Power of Dot Compliance Specialist In Chart: No Pipe Fitter Maintenance Attempted to Assist with AD Completion: Yes [...] Wheelchair-manual Discharge Planning Patient Goal(s): General wellness [place] of Choice Explained: [place] of [place] Given: Yes Level of Care [...] Arrangements: Ambulance Transportation Agency and Phone #:: [facility] ( [facility] ) [phone] / [phone] Type of Service: BLS Non-emergency Is Patient Medicaid Pending?: No Was transportation financial coverage discussed with family?: Family Frog Or Oyster Farmworker Location: [facility] Destination: [facility] Financial Care Management Responsibility: None Needs Prior to Discharge: Needs Prior to Discharge: To Be Determined Post-Acute Discharge Plan: Spoke with brother Danny via phone. states that he is HCPOA, not on file with [facility]. Patient has been a resident of [facility] for the past 10 years. Return referral [...] 18, 2024 TIME: 2:16 PM CONTACT #: [phone] [facility] 08-18-2024 Note HNO ID: [id number] Author: CARYL DOMINGUEZ DO Service: Hospital Medicine Author Type: Physician Type: Progress Notes Filed: 08/18/2024 16:30 Note Text: DEPARTMENT OF HOSPITAL MEDICINE PROGRESS NOTE SERVICE DATE: 08/18/2024 SERVICE TIME: 2:15 PM Hospital Medicine/Primary Attending: Caryl Dominguez DO NIGHT AND WEEKEND COVERAGE: PECONIC COVERAGE: After 7pm, please call cross cover pager #[phone] Subjective INTERVAL HPI: 79 y/o female with PMHx of Epilepsy who was transfer to [facility] due to breakthrough seizure. MEDICATIONS: Reviewed Objective [...] Drains, and Airways Line Duration Peripheral 08/17/242115 [facility] Short Left Antecubital 20 Gauge <1 [...] VTE Prophylaxis/Anticoagulants 08/17/242229 vte current anticoag therapy (wi,nd) 08/17/242229 activity - mobilize patient ([place]) VTE Prophylaxis: VTE prophylaxis appropriate Disposition: Home Plan of care discussed with: Provider, RN, Patient SIGNATURE: Caryl Dominguez DO PATIENT NAME: Katheryn Chino DATE: August 18, 2024 TIME: 2:15 PM etx [id number] [facility] 08-17-2024 Telephone encounter Note I received a call from the emergency room at [facility] regarding a patient of Dr. Nava. Patient [...] free 3 years. Visit with epileptologist at [facility] and long EEG are indicated at this time due to rare seizures. Events on 08/17/2024 Patient had a 15-minute seizure in the [facility]pc. She had not had any seizures recently. [...] Patient has not been seen in the [facility] since 2019. At the minimum she needs an evaluation to reassess her epilepsy. Francisco Javier Salazar MD Neurology. (Telemedicine neurologist) [facility] Work Phone: 08-17-2024 Miscellaneous Notes I received a call from the emergency room at [facility] regarding a patient of Dr. Nava. Patient [...] free 3 years. Visit with epileptologist at [facility] and long EEG are indicated at this time due to rare seizures. Events on 08/17/2024 Patient had a 15-minute seizure in the [facility]. She had not had any seizures recently. [...] Patient has not been seen in the [facility] system since 2019. At the minimum she needs an evaluation to reassess her epilepsy. Francisco Javier Salazar MD Neurology. (Telemedicine neurologist) documented in this encounter [facility] 08-10-2023 Miscellaneous Notes Mireille from [facility] called to request medical records for [...] number to call and schedule the appointment. [phone] documented in this encounter [facility] 08-08-2023 Miscellaneous Notes Appears following with Dr. Pereira. Will forward. Duncan Nava MD I did not order labs. Pt needs follow up. Not seen in 3+ years. Duncan Nava MD Fax received from [facility] requesting labs to be reviewed by Dr. Nava and a reply. Pt has not been seen in neurology department since 2019. Please review and advise. 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 other agents affecting estrogen receptors and estrogen levels Encounter for screening for osteoporosis Special screening for osteoporosis [facility]* Diagnosis Intractable epilepsy without status epilepticus, unspecified epilepsy type (HCC) documented in this encounter [facility] note* Diagnosis Intractable epilepsy without status epilepticus, unspecified epilepsy type (HCC)- Primary documented in this encounter [facility] note* Diagnosis Intractable epilepsy without status epilepticus, unspecified epilepsy type (HCC) documented in this encounter [facility] note* Diagnosis 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 osteoporosis Special screening for osteoporosis senior care (current) use of other agents affecting estrogen receptors and estrogen levels [facility]* Diagnosis Osteoporosis without current pathological fracture, unspecified osteoporosis type- Primary documented in this encounter [facility] note* Diagnosis Intractable epilepsy without status epilepticus, unspecified epilepsy type (HCC) documented in this encounter [facility] note* Diagnosis Sepsis due to urinary tract infection (HCC)- Primary Sepsis due to urinary tract infection (HCC) Breakthrough seizure (CMS/HCC) (HCC) Fever, unspecified fever cause documented in this encounter [facility] note* Diagnosis Intractable epilepsy without status epilepticus, unspecified epilepsy type (HCC)- Primary [facility]* Diagnosis Intractable epilepsy without status epilepticus, unspecified epilepsy type (HCC) Osteoporosis without current pathological fracture, unspecified osteoporosis type documented in this encounter [facility] note* Diagnosis Intractable epilepsy without status epilepticus, unspecified epilepsy type (HCC)- Primary documented in this encounter [facility] note* Diagnosis Osteoporosis without current pathological fracture, unspecified osteoporosis type- Primary Wheelchair dependent Wheelchair 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) History of long-term treatment with high-risk medication Encounter for long-term (current) use of other medications [facility] Diagnosis Postmenopausal osteoporosis- Primary Senile osteoporosis [facility]* Diagnosis Hyperparathyroid (HCC)- Primary Elevated parathyroid hormone Unspecified endocrine disorder documented in this encounter [facility] for referral (narrative)* Diagnostic Procedure Only (Routine) - Authorized Specialty Diagnoses / Procedures Referred By Contac t Referred To Contact XR IMAGING Diagnoses 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 osteoporosis senior care (current) use of other agents affecting estrogen receptors and estrogen levels Procedures DXA-AXIAL SKELETON DXA BONE DENSITY STUDY 1/> SITES AXIAL Jayant Villeda MD [address] [id number] Xr Imaging [place] [address] Referral ID Status Reason Start Date Expiration Date Visits Requested Visits Authorized [id number] Authorized Auto-Generat ed Referral 10/24/2025 1 1 [facility] for referral (narrative)No reason for referral information [facility]WAult[facility] Work Phone: Reason for visit Narrative* Diagnostic Procedure Only (Routine) - Closed Specialty Diagnoses / Procedures Referred By Contac t Referred To Contact XR IMAGING Diagnoses 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 other agents affecting estrogen receptors and estrogen levels Procedures DXA-AXIAL SKELETON DXA BONE DENSITY STUDY 1/> SITES AXIAL Jayant Villeda MD [address] [place] [id number] Phone: tel: fax: XR IMAGING [place] [address] Referral ID Status Reason Start Date Expiration Date V isits Requested Visits Authorized [id number] Closed Auto-Generate d Referral 09/24/2024 10/24/2025 1 1 [facility] Summary Purpose Family History No Family History Records FoundNo Family History Records FoundNo Family History Records FoundNo Family History Records FoundNo Family History Records FoundNo Family History Records FoundNo Family History Records FoundNo Family History Records Found Advance Directives No Advanced Directives Records Found Advance Directive Response Recorded Date/ Time Name of Medical Power of Dot Compliance Specialist Danny Ledesma September 18, 2023 10:22am Living Will Yes September 18 10:22am Power of Dot Compliance Specialist Yes September 18, 2023 10:22am Documents on File Type Date Recorded 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 Advance Directive(s) 08/21/2024 2:00 PM Advance Directive(s) 08/21/2024 1:57 PM Date Activated Date Inactivated Comments 08/18/2024 12:17 PM 08/20/2024 4:37 PM Question Answer Comments DNR Order Discussed With: Surrogate Decision Ryley er Surrogate Decision Maker Relationship: Health Ca re Power of Dot Compliance Specialist Agent Date Activated Date Inactivated Comments 08/17/2024 10:16 PM 08/18/2024 12:17 PM Question Answer Comments DNR Order Discussed With: State-Approved DNR Mariana ntification Documents on File Type Date Recorded 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 Advance Directive(s) 08/21/2024 2:00 PM Advance Directive(s) 08/21/2024 1:57 PM Date Activated Date Inactivated Comments 08/18/2024 12:17 PM 08/20/2024 4:37 PM Question Answer Comments DNR Order Discussed With: Surrogate Decision Ryley er Surrogate Decision Maker Relationship: Health Ca re Power of Dot Compliance Specialist Agent Date Activated Date Inactivated Comments 08/17/2024 10:16 PM 08/18/2024 12:17 PM Question Answer Comments DNR Order Discussed With: State-Approved DNR Mariana ntification Date Activated Date Inactivated Comments 12/04/2024 1:22 AM 12/08/2024 5:19 PM Healthcare Agents on File Name Relationship Healthcare Agent Relationshi p Communication Danny Chino Brother First Alternate Health Care Agent Advance Directive Response Recorded Date/ Time Living Will Yes December 03 10:35am Do you have a Healthcare Power of Dot Compliance Specialist? Yes December 03, 2024 10:35am Name of Medical Power of Dot Compliance Specialist Danny Chino December 03, 2024 10:35am Chief Complaint and Reason for Visit Chief Complaint USP LAB WOR K USP BLOOD WORK USP LAB WORK USP LABWORK USP LABWORK Chief Complaint USP BLOOD W ORK USP LAB WORK USP LABWORK USP LABWORK Chief Complaint USP LABWORK USP LABWORK USP LAB WORK Chief Complaint USP LAB WOR K LABWORK Chief Complaint LABWORK Chief Complaint LABWORK USP LABWORK USP LAB WORK LABWORK Chief Complaint USP LAB WOR K LABWORK Chief Complaint USP LAB WOR K LABWORK LABWORK Chief Complaint LABWORK LABWORK SEIZURE Chief Complaint LABWORK LABWORK SEIZURE USP LABWORK Chief Complaint LABWORK LABWORK SEIZURE USP LABWORK LABWORK Chief Complaint Admit Date LAB WORK September 17, 2024 5 :30am LAB WORK September 19, 2024 5 :00am LABWORK September 22, 2024 5 :00am LAB WORK September 26, 2024 5:00am LABWORK September 29, 2024 5:00am USP LAB WORK November 14, 2024 5:00am seizure December 03, 2024 9:32am LABWORK December 10, 2024 5:00am USP LAB WORK December 15, 2024 5: 00am Chief Complaint Admit Date LAB WORK September 19, 2024 5 :00am LABWORK September 22, 2024 5 :00am LAB WORK September 26, 2024 5:00am LABWORK September 29, 2024 5:00am USP LAB WORK November 14, 2024 5:00am seizure December 03, 2024 9:32am LABWORK December 10, 2024 5:00am USP LAB WORK December 15, 2024 5: 00am USP LAB WORK December 26, 2024 5 :00am Chief Complaint Admit Date USP LAB WORK November 14, 2024 5:00am seizure December 03, 2024 9:32am LABWORK December 10, 2024 5:00am USP LAB WORK December 15, 2024 5: 00am USP LAB WORK December 26, 2024 5 :00am USP LAB WORK January 19, 2025 5: 00am Chief Complaint Admit Date USP LAB WORK November 14, 2024 5:00am seizure December 03, 2024 9:32am LABWORK December 10, 2024 5:00am USP LAB WORK December 15, 2024 5: 00am USP LAB WORK December 26, 2024 5 :00am USP LAB WORK January 19, 2025 5: 00am LABWORK Shira 16th, 2025 5:0 0am Chief Complaint Admit Date USP LAB WORK November 14, 2024 5:00am seizure December 03, 2024 9:32am LABWORK December 10, 2024 5:00am USP LAB WORK December 15, 2024 5: 00am USP LAB WORK December 26, 2024 5 :00am USP LAB WORK January 19, 2025 5: 00am LABWORK January 28, 2025 5:0 0am USP LAB WORK February 02, 2025 5 :00am Chief Complaint Admit Date USP LAB WORK December 15, 2024 5: 00am USP LAB WORK December 26, 2024 5 :00am USP LAB WORK January 19, 2025 5: 00am LABWORK January 28, 2025 5:0 0am USP LAB WORK February 02, 2025 5 :00am USP LAB WORK February 27, 2025 5:0 0am LABWORK March 04, 2025 5:00a m USP LAB WORK March 10, 2025 5:0 0am Additional Source Comments INFORMATION SOURCE (unrecogn ized section and content) DATE CREATED AUTHOR 01/24/2019 [facility] DATE CREATED AUTHOR AUTHOR'S ORGANIZ ATION 07/30/2019 [facility] DATE CREATED AUTHOR AUTHOR'S ORGANIZ ATION 12/05/2024 [facility] DATE CREATED AUTHOR AUTHOR'S ORGANIZ ATION 12/17/2024 [facility] DATE CREATED AUTHOR AUTHOR'S ORGANIZ ATION 01/18/2025 [facility] DATE CREATED AUTHOR AUTHOR'S ORGANIZ ATION 04/22/2025 [facility] DATE CREATED AUTHOR AUTHOR'S ORGANIZ ATION 05/03/2025 [facility] Goals (unrecognized section and content) Goals may [...] Role Status Dates Orville Mendoza Primary Care Provider, Attending Provi torito Active Team Status: Inactive Member Role Status Dates Orville Kelly Primary Care Provider Active Todd Velasquez MD Attending Provider Active Team Status: Inactive Member Role Status Dates Todd Velasquez MD Primary Care Provide r, Attending Provider, Referring Provider Active Team Status: Inactive Member Role Status Dates Todd Velasquez MD Primary Care Provider, Attending Pro vider Active Loan Reviewer Relationship Specialty Start Date End Date Orville eMndoza [address] [place] [address] PCP - General Family Medicine 08/07/18 Claudia Gaston, WEB PUBLISHER.SMALL CRAFT OPERATOR [address] [place] [address] Referring Neurosurgery 07/29/19 Loan Reviewer Relationship Specialty Start Date End Date Orville Mendoza [address] [place] [address] PCP - General Family Medicine 08/07/18 Claudia Gaston, WEB PUBLISHER.SMALL CRAFT OPERATOR [address] [place] [address] Referring Neurosurgery 07/29/19 Team Status: Active Member Role Status Dates Todd FOX MD Primary Care Provider Active Team Status: Inactive Member Role Status Dates Todd FOX MD Primary Care Provider, Attending Provider Active Team Status: Inactive Member Role Status Dates Todd FOX MD Primary Care Provid er, Attending [...] MD Primary Care Provider, Attending Provider Active Loan Reviewer Relationship Specialty Start Date End Date LisaOrville loving, [address] [place] [address] PCP - General Family Medicine 08/07/18 Claudia Gaston APRN.SMALL CRAFT OPERATOR [address] [place] [phone] Referring Neurosurgery 07/29/19 Loan Reviewer Relationship Specialty Start Date End Date Lisainder Orville Hua, DO [address] [place] [address] PCP - General Family Medicine 08/07/18 Claudia Gaston, ANYI.SMALL CRAFT OPERATOR [address] [place] [phone] Referring Neurosurgery 07/29/19 Loan Reviewer Relationship Specialty Start Date End Date Kelly Orville Hua, DO [address] [place] [id number] PCP - General Family Medicine 08/07/18 Claudia Gaston APRN.SMALL CRAFT OPERATOR [address] [place] [phone] Referring Neurosurgery 07/29/19 Loan Reviewer Relationship Specialty Start Date End Date Kelly Orville Hua, DO [address] [place] [address] PCP - General Family Medicine 08/07/18 Claudia Gaston APRN.SMALL CRAFT OPERATOR [address] [place] [phone] Referring Neurosurgery 07/29/19 Loan Reviewer Relationship Specialty Start Date End Date Orville Mendoza, [address] [place] [address] PCP - General Family Medicine 08/07/18 Claudia Gaston APRN.SMALL CRAFT OPERATOR [address] [place] [phone] Referring Neurosurgery 07/29/19 Loan Reviewer Relationship Specialty Start Date End Date Orville Mendoza, DO [address] [place] [address] PCP - General Family Medicine 08/07/18 Claudia Gaston APRN.SMALL CRAFT OPERATOR [address] [place] [phone] Referring Neurosurgery 07/29/19 Loan Reviewer Relationship Specialty Start Date End Date Orville Mendoza, DO [address] [place] [address] PCP - General Family Medicine 08/07/18 Claudia Gaston APRN.SMALL CRAFT OPERATOR [address] [place] [phone] Referring Neurosurgery 07/29/19 Loan Reviewer Relationship Specialty Start Date End Date Orville Mendoza DO [address] [place] [address] PCP - General Family Medicine 08/07/18 Claudia Gaston, ANYI.SMALL CRAFT OPERATOR [address] [place] [address] Referring Neurosurgery 07/29/19 Loan Reviewer Relationship Specialty Start Date End Date Orville Mendoza DO [address] [place] [address] PCP - General Family Medicine 08/07/18 Claudia Gaston, WEB PUBLISHER.SMALL CRAFT OPERATOR [address] [place] [phone] Referring Neurosurgery 07/29/19 Loan Reviewer Relationship Specialty Start Date End Date Orville Mendoza, DO [address] [place] [address] PCP - General Family Medicine 08/07/18 Claudia Gaston, WEB PUBLISHER.SMALL CRAFT OPERATOR [address] [place] [phone] Referring Neurosurgery 07/29/19 Loan Reviewer Relationship Specialty Start Date End Date Orville Mendoza, DO [address] [place] [address] PCP - General Family Medicine 08/07/18 Claudia Gaston, WEB PUBLISHER.SMALL CRAFT OPERATOR [address] [place] [phone] Referring Neurosurgery 07/29/19 Loan Reviewer Relationship Specialty Start Date End Date LisaOrville loving [address] [place] [address] PCP - General Family Medicine 08/07/18 Claudia Gaston, ANYI.SMALL CRAFT OPERATOR [address] [place] [address] Referring Neurosurgery 07/29/19 Loan Reviewer Relationship Specialty Start Date End Date LisaOrville loving [address] [place] [address] PCP - General Family Medicine 08/07/18 Claudia Gaston, WEB PUBLISHER.SMALL CRAFT OPERATOR [address] [place] [address] Referring Neurosurgery 07/29/19 Loan Reviewer Relationship Specialty Start Date End Date LisaOrville loving DO [address] [place], [place] [id number] PCP - General Family Medicine 08/07/18 Claudia Gaston, WEB PUBLISHER.SMALL CRAFT OPERATOR [address] [place] [address] Referring Neurosurgery 07/29/19 Loan Reviewer Relationship Specialty Start Date End Date LisaOrville loving Herminio DO [address] [place] [address] [address] [place] [address] PCP - General 03/15/19 Loan Reviewer Relationship Specialty Start Date End Date LisaOrville loving DO [address] [place], [place] [id number] PCP - General Family Medicine 08/07/18 Claudia Gaston APRN.SMALL CRAFT OPERATOR [address] [place] [phone] Referring Neurosurgery 07/29/19 Team Status: Active Member [...] Provider Active Start: September 22, 2024 Todd FXO MD Attending Provider Active S tart: September [...] Care Provider Active Start: November 08, 2024 [facility] Attending Provider Active Start: November 08, [...] Provider Active S tart: December 26, 2024 Loan Reviewer Relationship Specialty Start Date End Date Orville Mendoza DO [address] [place] [id number] PCP - General Family Medicine 08/07/18 Claudia Gaston APRN.[facility] [address] [place] [phone] Referring Neurosurgery 07/29/19 Team Status: Inactive Member [...] Provider Active S tart: February 02, 2025 Loan Reviewer Relationship Specialty Start Date End Date StephOrville rockwellDO [address] [place] [address] PCP - General Family Medicine 08/07/18 Claudia Gaston APRN.SMALL CRAFT OPERATOR [facility] [place] [address] Referring Neurosurgery 07/29/19 Team Status: Inactive Member [...] Provider Active S tart: February 27, 2025 Team Status: Active Member Role/Relationship Status Dates Dr. Todd Velasquez Sr. , DO Primary Care Provider Active Team Status: Inactive Member Role/Relationship Status Dates Dr. Todd Velasquez Sr. , DO Primary Care Provider Active Start: December 15, 2024 End: December 15, 2024 Todd FOX MD Attending Provider Active S tart: December 15, 2024 End: December 15, 2024 Team Status: Inactive Member Role/Relationship Status Dates Dr. Todd Velasquez Sr. , DO Primary Care Provider Active Start: December 26, 2024 End: December 26, 2024 Todd FOX MD Attending Provider Active S tart: December 26, 2024 End: December 26, 2024 Team Status: Inactive Member Role/Relationship Status Dates Dr. Todd Velasquez Sr. , DO Primary Care Provider Active Start: January 19, 2025 End: January 19, 2025 Todd FOX MD Attending Provider Active S tart: January 19, 2025 End: January 19, 2025 Team Status: Inactive Member Role/Relationship Status Dates Dr. Todd Velasquez Sr. , DO Primary Care Provider Active Start: January 28, 2025 End: January 28, 2025 Todd FOX MD Attending Provider Active S tart: January 28, 2025 End: January 28, 2025 Team Status: Inactive Member Role/Relationship Status Dates Dr. Todd Velasquez Sr. , DO Primary Care Provider Active Start: February 02, 2025 End: February 02, 2025 Todd FOX MD Attending Provider Active S tart: February 02, 2025 End: February 02, 2025 Team Status: Active Member Role/Relationship Status Dates Dr. Todd Velasquez Sr. , DO Primary Care Provider Active Start: February 27, 2025 Todd FOX MD Attending Provider Active S tart: February 27, 2025 Team Status: Active Member Role/Relationship Status Dates Dr. Todd Velasquez Sr. , DO Primary Care Provider Active Start: March 04, 2025 Todd FOX MD Attending Provider Active S tart: March 04, 2025 Team Status: Inactive Member Role/Relationship Status Dates Dr. Todd Velasquez Sr. , DO Primary Care Provider Active Start: March 10, 2025 End: March 10, 2025 Todd FOX MD Attending Provider Active S tart: March 10, 2025 End: March 10, 2025 Team Status: Active Member Role/Relationship Status Dates Dr. Todd Velasquez Sr. , DO Primary Care Provider Active Start: April 06, 2025 Todd FOX MD Attending Provider Active S tart: April 06, 2025 Loan Reviewer Relationship Specialty Start Date End Date Orville Mendoza DO [address] [place] [address] PCP - General Family Medicine 08/07/18 Claudia Gaston APRN.[facility] [address] [place] [address] Referring Neurosurgery 07/29/19 Source Comments (unrecognize d section and content) In the event this informatio n is protected by the Federal Confidentiality of Alcohol and Drug Abuse Patient Records regulations: The Federal rules restrict any use of the information to criminally investigate or prosecute any alcohol or drug abuse patient.[facility] FoundationIn the event this information is protected by the Federal Confidentiality of Alcohol and Drug Abuse Patient Records regulations: The Federal rules restrict any use of the information to criminally investigate or prosecute any alcohol or drug abuse patient.[facility] FoundationIn the event this information is protected by the Federal Confidentiality of Alcohol and Drug Abuse Patient Records regulations: The Federal rules restrict any use of the information to criminally investigate or prosecute any alcohol or drug abuse patient.[facility] FoundationIn the event this information is protected by the Federal Confidentiality of Alcohol and Drug Abuse Patient Records regulations: The Federal rules restrict any use of the information to criminally investigate or prosecute any alcohol or drug abuse patient.[facility] FoundationIn the event this information is protected by the Federal Confidentiality of Alcohol and Drug Abuse Patient Records regulations: The Federal rules restrict any use of the information to criminally investigate or prosecute any alcohol or drug abuse patient.[facility] FoundationIn the event this information is protected by the Federal Confidentiality of Alcohol and Drug Abuse Patient Records regulations: The Federal rules restrict any use of the information to criminally investigate or prosecute any alcohol or drug abuse patient.[facility] FoundationIn the event this information is protected by the Federal Confidentiality of Alcohol and Drug Abuse Patient Records regulations: The Federal rules restrict any use of the information to criminally investigate or prosecute any alcohol or drug abuse patient.[facility] FoundationIn the event this information is protected by the Federal Confidentiality of Alcohol and Drug Abuse Patient Records regulations: The Federal rules restrict any use of the information to criminally investigate or prosecute any alcohol or drug abuse patient.[facility] FoundationIn the event this information is protected by the Federal Confidentiality of Alcohol and Drug Abuse Patient Records regulations: The Federal rules restrict any use of the information to criminally investigate or prosecute any alcohol or drug abuse patient.[facility] FoundationIn the event this information is protected by the Federal Confidentiality of Alcohol and Drug Abuse Patient Records regulations: The Federal rules restrict any use of the information to criminally investigate or prosecute any alcohol or drug abuse patient.[facility] FoundationIn the event this information is protected by the Federal Confidentiality of Alcohol and Drug Abuse Patient Records regulations: The Federal rules restrict any use of the information to criminally investigate or prosecute any alcohol or drug abuse patient.[facility] FoundationIn the event this information is protected by the Federal Confidentiality of Alcohol and Drug Abuse Patient Records regulations: The Federal rules restrict any use of the information to criminally investigate or prosecute any alcohol or drug abuse patient.[facility] FoundationIn the event this information is protected by the Federal Confidentiality of Alcohol and Drug Abuse Patient Records regulations: The Federal rules restrict any use of the information to criminally investigate or prosecute any alcohol or drug abuse patient.[facility] FoundationIn the event this information is protected by the Federal Confidentiality of Alcohol and Drug Abuse Patient Records regulations: The Federal rules restrict any use of the information to criminally investigate or prosecute any alcohol or drug abuse patient.[facility] FoundationIn the event this information is protected by the Federal Confidentiality of Alcohol and Drug Abuse Patient Records regulations: The Federal rules restrict any use of the information to criminally investigate or prosecute any alcohol or drug abuse patient.[facility] FoundationIn the event this information is protected by the Federal Confidentiality of Alcohol and Drug Abuse Patient Records regulations: The Federal rules restrict any use of the information to criminally investigate or prosecute any alcohol or drug abuse patient.[facility] FoundationIn the event this information is protected by the Federal Confidentiality of Alcohol and Drug Abuse Patient Records regulations: The Federal rules restrict any use of the information to criminally investigate or prosecute any alcohol or drug abuse patient.[facility] FoundationIn the event this information is protected by the Federal Confidentiality of Alcohol and Drug Abuse Patient Records regulations: The Federal rules restrict any use of the information to criminally investigate or prosecute any alcohol or drug abuse patient.[facility] FoundationIn the event this information is protected by the Federal Confidentiality of Alcohol and Drug Abuse Patient Records regulations: The Federal rules restrict any use of the information to criminally investigate or prosecute any alcohol or drug abuse patient.[facility] FoundationIn the event this information is protected by the Federal Confidentiality of Alcohol and Drug Abuse Patient Records regulations: The Federal rules restrict any use of the information to criminally investigate or prosecute any alcohol or drug abuse patient.[facility] FoundationIn the event this information is protected by the Federal Confidentiality of Alcohol and Drug Abuse Patient Records regulations: The Federal rules restrict any use of the information to criminally investigate or prosecute any alcohol or drug abuse patient.[facility] FoundationIn the event this information is protected by the Federal Confidentiality of Alcohol and Drug Abuse Patient Records regulations: The Federal rules restrict any use of the information to criminally investigate or prosecute any alcohol or drug abuse patient.[facility] FoundationIn the event this information is protected by the Federal Confidentiality of Alcohol and Drug Abuse Patient Records regulations: The Federal rules restrict any use of the information to criminally investigate or prosecute any alcohol or drug abuse patient.[facility] FoundationIn the event this information is protected by the Federal Confidentiality of Alcohol and Drug Abuse Patient Records regulations: The Federal rules restrict any use of the information to criminally investigate or prosecute any alcohol or drug abuse patient.[facility] FoundationIn the event this information is protected by the Federal Confidentiality of Alcohol and Drug Abuse Patient Records regulations: The Federal rules restrict any use of the information to criminally investigate or prosecute any alcohol or drug abuse patient.[facility] FoundationIn the event this information is protected by the Federal Confidentiality of Alcohol and Drug Abuse Patient Records regulations: The Federal rules restrict any use of the information to criminally investigate or prosecute any alcohol or drug abuse patient.[facility] FoundationIn the event this information is protected by the Federal Confidentiality of Alcohol and Drug Abuse Patient Records regulations: The Federal rules restrict any use of the information to criminally investigate or prosecute any alcohol or drug abuse patient.[facility] Reason for Visit (unrecogniz ed section and content) Reason Comments Results Reason Comments Release Of Medical Records Reason Comments Outside Labs Results VPA Reason Comments Forms Review results and o rders Reason Comments Outside Lab Results PHENYTOIN Reason Comments New Patient Epilepsy Reason Comments Outside Lab Results [facility] Reason Comments general seizure monitoring r eport Reason Comments Seizures Reason Comments Received Outside Medical Records Seizure monitoring report Reason Onset Date Comments Refill Request 11/11/2024 Reason Comments Supervisor Parking Lot - Other Reason Comments Other Seizure monitoring Reason Comments Seizures [place] transfer. Pt from [facility] for 38 minute witnessed seizure [...] fever cause Procedures . Fazal Garza MD [address] [place] [address] Phone: tel: fax: [facility] Ep[facility] Monitoring [facility] [address] [place] [phone] Phone: tel: fax: Referral ID Status Reason Start Date Expiration Date Visits Re quested Visits Authorized [id number] 1 Reason Comments Outside Lab Results lac[facility]amide [facility] Med[facility] Problem Nayzilam - Medicatio n Not Working Reason Comments Follow Up Epilepsy Reason Comments Medication Problem Lacosamide Reason Comments New Patient Specialty Diagnoses / Procedures Referred By Contac t Referred To Contact Rheumatology Diagnoses Osteoporosis without current pathological fracture, unspecified osteoporosis type Procedures CONSULT TO RHEUM/IMMUN DISEASE OFFICE/OUTPATIENT [facility] 60 MINUTES Jayant Jimenez MD [address] [place] [address] Phone: tel: fax: Referral ID Status Reason Start Date Expiration Date V isits Requested Visits Authorized [id number] Closed PCP Requested Referral 12/01/2024 12/01/2025 1 [...] 20 mg, Oral, Daily, First dose on Sun12/04/24 at 0800 0848 (Given - Provider: Fausto Linn LPN) 0928 (Given - Provider: Kaylee Carrasco RN) 0943 (Given - Provider: Adam Pimentel RN) ethosuximide (Zarontin) capsule 250 mg 250 mg, Oral, 2 times daily, First dose on Sun12/04/24 at 0900 0848 (Given - Provider: Fausto Linn LPN)2049 (Given - Provider: Jeanne Avina RN) 928 (Given - Provider: Kaylee Carrasco RN)2311 (Given - Provider: Jeanne Avina RN - Comment: leisa bean) 0944 (Given - Provider: Adam Pimentel RN) [...] not divide. 2049 (Given - Provider: Jeanne Aivna RN) 2101 (Given - Provider: Jeanne Avina RN) levothyroxine (Synthroid, Levoxyl) tablet 50 mcg 50 mcg, Oral, Daily before breakfast, First dose on Patricia 12/04/24 at 0600, Tube feeding (TF) interaction, obtain physician order to manage, recommend holding TF for 30 minutes before and after dose. 0517 (Given - Provider: Maria Victoria Zapata RN) 0511 (Given - Provider: Jeanne Avina RN) 0535 (Given - Provider: Jeanne Avina RN) melatonin tablet 3 mg 3 mg, Oral, Nightly, First dose on Sun12/04/24 at 2100 2049 (Given - Provider: Jeanne Avina RN) 2101 (Given - Provider: Jeanne Avina RN) pantoprazole (ProtoNix) EC tablet 40 mg 40 mg, Oral, Daily, First dose on Patricia 12/04/24 at 0800, Do not crush, chew, or split. 0848 (Given - Provider: Fausto Linn LPN) 0928 (Given - Provider: Kaylee Carrasco, MEGA) 0942 (Given - Provider: Adam Pimentel, RN) potassium chloride (Klor-Con) packet 10 mEq 10 [...] Avina RN) 0943 (Given - Provider: Adam Pimentel, RN) PRN Medication Order 12/06/2024 12/07/2024 12/08/2024 [...] BE BASED ON THE PRIMARY CLINICAL RECORDS. [email or web address] [facility]. provides no warranty or guarantee of the accuracy or completeness of information in this document.
[2025-05-27 08:11] LABS: Hematocrit 31.2 % (37-47); Hemoglobin 9.8 g/dL (12.0-15.0); Mean Corp Hgb Conc 31.4 g/dL (32-36); Mean Corpuscular Volume 88.1 fL (81-99); Mean Platelet Vol. 12.2 fl (6.2-12.0); Platelet Count 163 K/mm3 (150-450); RBC Distribution Width CV 14.6 % (11.6-14.6); RBC Distribution Width SD 47.3 fl (35.1-43.9); Red Blood Count 3.54 M/mm3 (4.2-5.4); White Blood Count 7.6 K/mm3 (4.4-11.0)
[2025-05-27 09:01] LABS: AST(SGOT) 21 U/L (<=31); Alanine Aminotransfer ALT/SGPT 9 U/L (<=34); Albumin, Serum 3.7 g/dL (3.4-4.8); Alkaline Phosphatase 84 U/L (35-104); Anion Gap 11 (5-15); BUN 18 mg/dL (4-19); BUN/Creat Ratio 23.0 RATIO (10-20); Calcium,Total 9.6 mg/dL (7.6-11.0); Carbon Dioxide 23.5 mmol/L (21.0-32.0); Chloride 105 mmol/L (98-108); Globulin 3.2 g/dL (2.2-4.2); Glucose 88 mg/dL (70-99); Potassium 4.7 mmol/L (3.3-5.1)
== END ==
LOC: OLS.ACH 05:00
PROVIDERS: PCP Internal Medicine; Visit Provider Internal Medicine
DX: G40.909 Epilepsy, unspecified, not intractable, without status epilepticus (principal)
CPT/HCPCS: 36415; 80053; 85027

== ENCOUNTER → 2025-06-01 05:00 | Outpatient (REF) | payer MEDICARE, OTHER, MEDICAID, SELFPAY ==
--- OUTSIDE RECORDS SUMMARY | 2025-06-01 04:11 | XMS RPT_ITS | CCD ---
Author Organization [facility] Care Team Providers Care Project Scientist Name Role Phone UNKNOWN, PROVIDER Referring Unavailable [facility] [place] Primary Care Unavailable Tj Peguero Attending Unavailable [facility] [place] Attending Unavailable UNKNOWN, PROVIDER Referring Unavailable [facility] Primary Care Unavailable [facility] Primary Care Provider Alek DE SANTIAGO.WELDING MACHINE SETTER, Claudia Unavailable [phone] [facility] Care Provide r DAMIR MCKEE Referring [facility]available [facility] Primary [facility] Provider [facility] Primary Care Unavailable FAZAL GARZA Admitting Unavailable DEKERRY SUSAN Consulting Unavailable DENISE HAIR Attending Unavailable Ron SESAY, Todd Primary Care Provider Unavailab gael Velasquez MD, Todd Attending Provider Unavailable [facility] Attending Provider Ruchi asadble Andi SESAY, Dr. Reich Attending Provider Dr. Damir Mckee MD Emergency Provider [phone] Todd Velasquez Sr., DO Primary Care Provider Ron SESAY, Todd Primary Care Provider Unavailab gael Velasquez MD, Todd Attending Provider Unavailable [facility] Primary Care Unavail able JAYANT JIMENEZ Attending Unavailabl e [facility] Unavail able JAYANT JIMENEZ Referring Unavailabl e [facility] Primary Care Unavail able JAYANT JIMENEZ Attending UnavailTAO Lynch Admitting Unavailable HAYES NICHOLSON Referring Unavailable [facility] Primary Care Unavail able JUAN JOSE HENDERSON Attending Unavailable ITRAT, FRANCESCOMED Consulting Unavailable Ron SESAY, Todd Primary Care [...] Unavailable Deperro OLS, Todd Primary Care Unavailable Sabianism [place], [facility] Attending Ruchivasandy tan Deperro OLS, Todd Attending Unavailable Deperro [...] Unavailable Deperro Sr., Todd Primary Care Unavailable Mckee, Damir Attending Unavailable Hayes Nicholson Attending Unavailable Deperro OLS, [...] epilepticus, unspecified epilepsy type (HCC) Use 1 Chitina in the nose as needed for seizures [...] Active docusate sodium 50 mg / sennosides, assisted 8.6 mg oral tablet (2 sources) take [...] Active Start: 09-18-2023 take 1 capsule by [facility] hours Ethosuximide 250 mg capsule [...] epilepticus, unspecified epilepsy type (HCC) Use 1 Chitina in the nose as needed for seizures [...] by mouth d aily at bedtime. sennosides, assisted 8.6 mg oral tablet (20 sources) End: [...] on above: 1 Enema by RECTAL ro prem one time only. valproic acid 250 mg [...] daily, First dose (after last modification) on [facility] 12/04/24 at 1400 Start: 08-20-2024 End: [...] 01/25/2019 Active take 4 capsules by m out three times daily valproic acid (DEPAKENE) 250 [...] Start: 09-18-2023 take 2 tablets by mo ut once daily Acetaminophen 325 mg tablet Active [...] by mouth every 6 hours as needed. [id number] 200 actuat albuter ol 0.09 mg/actuat metered [...] Start: 09-18-2023 take 1 tablet by julian once daily Cholecalciferol (Vitamin D3) 50 mcg (2,000 unit) tablet Active 50 ug PO DAILY September 18, 2023 1:00am Cholecalciferol, Vitamin D3, (VITAMIN D-3) 2,000 unit cap Take by mouth. Active take 1 capsule by mo ndh once daily cholecalciferol (Vitamin D-3) 50 MCG [...] 0800 Start: 09-18-2023 take 1 tablet by [facility] once daily escitalopram oxalate (LEXAPRO) 20 mg [...] 2100, For 1 dose polyethylene glycol 3350 35369 mg powder for oral solution (2 sources) [...] Inject 20mcg subcutaneously once daily. 2.48 mL 11 02/25/2025 04/16/2025 Discontinued Problems Active Problems Problem [...] disease with heart failure] Onset: 02-10-2025 Chronic Mood disorders (2 sources) Depressive disorder; 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: [Depression] Onset: 10-26-2020 07-28-2022 Chronic Osteoporosis (8 sources) Osteoporosis; 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: [Age-related osteoporosis without current pathological fracture] Onset: 01-15-2025 12-01-2024 Chronic Other aftercare (2 sources) Long-term current use of drug therapy; 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: [senior living (current) use of other agents affecting estrogen [...] convulsions; 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: [Seizure] Onset: 06-06-2018 08-17-2024 Episodic Malaise and fatigue (1 source) Weakness; 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: [Weakness] Onset: 02-10-2025 Episodic Other aftercare (20 sources) H/O: high risk medication; 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: [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, [address] Hematocrit (Bld) [Volume fraction] 31.2 % Low 37-47 [facility] Comment on above: Order Comment: 211-2 Performed By: #### L 100.0100, L501.8100, L501.7700, L500.4050 #### [facility] [address] [place], [address] Hemoglobin (Bld) [Mass/Vol] 9.8 g/dL Low 12.0-15.0 [facility] Comment on above: Order Comment: 211-2 Performed By: #### L 100.0100, L501.8100, L501.7700, L500.4050 #### [facility] [address] [place], [address] MCH (RBC) [Entitic mass] 27.7 pg Normal 27.0-32.0 [facility] Comment on above: Order Comment: 211-2 Performed By: #### L 100.0100, L501.8100, L501.7700, L500.4050 #### [facility] [address] [place], [address] MCHC (RBC) [Mass/Vol] 31.4 g/dL Low 32-36 [facility] Comment on above: Order Comment: 211-2 Performed By: #### L 100.0100, L501.8100, L501.7700, L500.4050 #### [facility] [address] [place], [address] MCV (RBC) [Entitic vol] 88.1 fL Normal 81-99 [facility] Comment on above: Order Comment: 211-2 Performed By: #### L 100.0100, L501.8100, L501.7700, L500.4050 #### [facility] [address] [place], [address] Platelet mean volume (Bld) [Entitic vol] 12.2 fL High 6.2-12.0 [facility] Comment on above: Order Comment: 211-2 Performed By: #### L 100.0100, L501.8100, L501.7700, L500.4050 #### [facility] [address] [place], [address] Platelets (Bld) [#/Vol] 163 10*3/uL Normal 150-450 [facility] Comment on above: Order Comment: 211-2 Performed By: #### L 100.0100, L501.8100, L501.7700, L500.4050 #### [facility] [address] [place], [address] RBC (Bld) [#/Vol] 3.54 10*6/uL Low 4.2-5.4 [facility] Comment on above: Order Comment: 211-2 Performed By: #### L 100.0100, L501.8100, L501.7700, L500.4050 #### [facility] [address] [place], [address] RDW SD 47.3 fl High 35.1-43.9 [facility] Comment on above: Order Comment: 211-2 Performed By: #### L 100.0100, L501.8100, L501.7700, L500.4050 #### [facility] [address] [place], [address] WBC (Bld) [#/Vol] 7.6 10*3/uL Normal 4.4-11.0 [facility] Comment on above: Order Comment: 211-2 Performed By: #### L 100.0100, L501.8100, L501.7700, L500.4050 #### [facility] [address] [place], [address] Comprehensive Metabolic Prof daniel 05-27-2025 Albumin [Mass/Vol] 3.7 g/dL Normal 3.4-4.8 [facility] Comment on above: Order Comment: 211-2 Performed By: #### L 100.0100, L501.8100, L501.7700, L500.4050 #### [facility] [address] [place], [address] Albumin/Globulin [Mass ratio] 1.2 {ratio} Normal 0.9-2.4 [facility] Comment on above: Order Comment: 211-2 Performed By: #### L 100.0100, L501.8100, L501.7700, L500.4050 #### [facility] [address] [place], [address] ALK PHOS 84 U/L Normal 35-104 [facility] Comment on above: Order Comment: 211-2 Performed By: #### L 100.0100, L501.8100, L501.7700, L500.4050 #### [facility] [address] [place], [address] ALT [Catalytic activity/Vol] 9 U/L Normal <=34 [facility] Comment on above: Order Comment: 211-2 Performed By: #### L 100.0100, L501.8100, L501.7700, L500.4050 #### [facility] [address] [place], [address] AST [Catalytic activity/Vol] 21 U/L Normal <=31 [facility] Comment on above: Order Comment: 211-2 Performed By: #### L 100.0100, L501.8100, L501.7700, L500.4050 #### [facility] [address] [place], [address] Bilirubin [Mass/Vol] 0.18 mg/dL Normal 0.00-1.30 [facility] Comment on above: Order Comment: 211-2 Performed By: #### L 100.0100, L501.8100, L501.7700, L500.4050 #### [facility] [address] [place], [address] BUN/CRE 23.0 RATIO High 10-20 [facility] Comment on above: Order Comment: 211-2 Performed By: #### L 100.0100, L501.8100, L501.7700, L500.4050 #### [facility] [address] [place], [address] Calcium [Mass/Vol] 9.6 mg/dL Normal 7.6-11.0 [facility] Comment on above: Order Comment: 211-2 Performed By: #### L 100.0100, L501.8100, L501.7700, L500.4050 #### [facility] [address] [place], [address] Chloride [Moles/Vol] 105 mmol/L Normal 98-108 [facility] Comment on above: Order Comment: 211-2 Performed By: #### L 100.0100, L501.8100, L501.7700, L500.4050 #### [facility] [address] [place], [address] CO2 [Moles/Vol] 23.5 mmol/L Normal 21.0-32.0 [facility] Comment on above: Order Comment: 211-2 Performed By: #### L 100.0100, L501.8100, L501.7700, L500.4050 #### [facility] [address] [place], [address] Creatinine [Mass/Vol] 0.78 mg/dL Normal 0.70-1.20 [facility] Comment on above: Order Comment: 211-2 Performed By: #### L 100.0100, L501.8100, L501.7700, L500.4050 #### [facility] [address] [place], [address] GAP 11 Normal 5-15 [facility] Comment on above: Order Comment: 211-2 Performed By: #### L 100.0100, L501.8100, L501.7700, L500.4050 #### [facility] [address] [place], [address] GFR/1.73 sq M.predicted among non-blacks MDRD (S/P/Bld) [Vol rate/Area] 78 mL/min/{1.73_m2} Normal >60 [facility] Comment on above: Order Comment: -2 Result Comment: mL/m in/1.73m2 CKD-EPI Creatinine Equation (2020) Performed By: #### L 100.0100, L501.8100, L501.7700, L500.4050 #### [facility] [address] [place], [address] Globulin (S) [Mass/Vol] 3.2 g/dL Normal 2.2-4.2 [facility] Comment on above: Order Comment: 211-2 Performed By: #### L 100.0100, L501.8100, L501.7700, L500.4050 #### [facility] [address] [place], [address] Glucose [Mass/Vol] 88 mg/dL Normal 70-99 [facility] Comment on above: Order Comment: 211-2 Performed By: #### L 100.0100, L501.8100, L501.7700, L500.4050 #### [facility] [address] [place], [address] Potassium [Moles/Vol] 4.7 mmol/L Normal 3.3-5.1 [facility] Comment on above: Order Comment: 211-2 Performed By: #### L 100.0100, L501.8100, L501.7700, L500.4050 #### [facility] [address] [place], [address] Sodium [Moles/Vol] 139 mmol/L Normal 133-145 [facility] Comment on above: Order Comment: 211-2 Performed By: #### L 100.0100, L501.8100, L501.7700, L500.4050 #### [facility] [address] [place], [address] T PROT 6.9 g/dL Normal 5.9-8.4 [facility] Comment on above: Order Comment: 211-2 Performed By: #### L 100.0100, L501.8100, L501.7700, L500.4050 #### [facility] [address] [place], [address] Urea nitrogen [Mass/Vol] 18 mg/dL Normal 4-19 [facility] Comment on above: Order Comment: 211-2 Performed By: #### L 100.0100, L501.8100, L501.7700, L500.4050 #### [facility] [address] [place], [address] CNPAni 04-16-2025 [facility] Telephone (WSTR) -------- KATHERYN CHINO ([id number]) 1945 F Date Time Provider Department 04/16/25 [facility] During your visit today, we recorded the following information about you: Lolita Jain PA-C 04/16/2025 9:36 AM Signed Received outside medical records from [facility] dated 04/06/25 PTH level is 76 The [...] don't use in patients who have had WI/Stroke in the past year. She will review with Katheryn and ERNESTINE and let us know preference moving forward regarding treatment. Thanks KG Please fax this phone encounter to [phone] for their records Shavonne Sinclair RN 04/16/2025 10:19 AM Signed Telephone encounter faxed. Shavonne Sinclair RN Allergies As of Date: 04/16/2025 (No Known Allergies) Date Reviewed: 02/25/2025 Reviewed by: Jacki Sumner MA - Fully Assessed Primary Visit Diagnosis:Hyperparathyro id (HCC) [E21.3] Other Visit Diagnosis:Elevated parathyroid hormone [R79.89] Order(s):CONSULT TO ENDOCRINOLOGY [9007] Order #: [id number]: 1 FUTURE Prescriptions as of 04/16/2025 - [...] mg/spray (0.1 mL) nasal spray Use 1 Chitina in the nose as needed for seizures [...] Status:Closed by SHAVONNE SINCLAIR on 04/16/25 Normal [facility] PTHINon 04-06-2025 PTH 76 pg/mL High [facility] Comment on above: Order Comment: 1939 Performed By: #### L 501.7700 #### [facility] [address] [place], [address] L3410.9992on 03-14-2025 [facility] Misc. COMMENT Normal . [facility] Comment on above: Order Comment: 211.2 0000 Result Comment: Test Ordered: [id number] Lacosamide Test(s) 918740-Fthcjpcskp was developed and its performance characteristics determined by [employer]. It has not been cleared or approved by the Food and Drug Administration. Lacosamide 8.0 ug/mL Reference Range: 5.0-10.0 Limit of Detection 0.5 Mean plasma concentrations following maintenance dose 200 mg/day 4.99 +/- 2.51 ug/mL 400 mg/day 9.35 +/- 4.22 ug/mL 600 mg/day 12.46 +/- 5.60 ug/mL Performed at: - [facility] [id number] Community Outreach Director: Nahed Naidu MD, Phone: [phone] Performed at: [address] [id number] Community Outreach Director: Haris Peraza PhD, Phone: [phone] Performed By: #### L 501.8100, L501.7700 #### [facility] [address] [place], [address] Serum or plasma valproate me asurement (mass/volume)Ordered By: Todd Velasquez on 03-10-2025 Valproate [Mass/Vol] 91 ug/mL 50-100 [facility] Comment on above: Valproic Acid concen trations >100 ug/mL are potentially toxic. Valproic Acid (Depakene) Lev maribell 03-10-2025 VALPROIC ACID 91 ug/mL Normal 50-100 [facility] Comment on above: Order Comment: 211.2 0000 Result Comment: Valp roic Acid concentrations >100 ug/mL are potentially toxic. Performed By: #### L 501.8100, L501.7700 #### [facility] [address] [place], [place], [address] Anion gap in Serum or Plasma Ordered By: Todd Velasquez on 03-04-2025 Anion gap [Moles/Vol] 9 mmol/L 5-15 [facility] BUN/creatinine ratioOrdered By: Todd Velasquez on 03-04-2025 Urea nitrogen/Creatinine [Mass ratio] 22.8 mg/mg High 10-20 [facility] Bilirubin, totalOrdered By: Todd Velasquez on 03-04-2025 Bilirubin [Mass/Vol] 0.21 mg/dL 0.00-1.30 [facility] CBC-Complete Blood Cnt No Di ffon 03-04-2025 Erythrocyte distribution width (RBC) [Ratio] 14.5 % Normal 11.6-14.6 [facility] Comment on above: Order Comment: Performed By: #### L 100.0100, L501.8100, L501.7700, L500.4050 #### [facility] [address] [place], [address] Hematocrit (Bld) [Volume fraction] 30.2 % Low 37-47 [facility] Comment on above: Order Comment: Performed By: #### L 100.0100, L501.8100, L501.7700, L500.4050 #### [facility] [address] [place], [address] Hemoglobin (Bld) [Mass/Vol] 9.6 g/dL Low 12.0-15.0 [facility] Comment on above: Order Comment: 211-2 Performed By: #### L 100.0100, L501.8100, L501.7700, L500.4050 #### [facility] [address] [place], [address] MCH (RBC) [Entitic mass] 28.2 pg Normal 27.0-32.0 [facility] Comment on above: Order Comment: 211-2 Performed By: #### L 100.0100, L501.8100, L501.7700, L500.4050 #### [facility] [address] [place], [address] MCHC (RBC) [Mass/Vol] 31.8 g/dL Low 32-36 [facility] Comment on above: Order Comment: 211-2 Performed By: #### L 100.0100, L501.8100, L501.7700, L500.4050 #### [facility] [address] [place], [address] MCV (RBC) [Entitic vol] 88.6 fL Normal 81-99 [facility] Comment on above: Order Comment: 211-2 Performed By: #### L 100.0100, L501.8100, L501.7700, L500.4050 #### [facility] [address] [place], [address] Platelet mean volume (Bld) [Entitic vol] 12.1 fL High 6.2-12.0 [facility] Comment on above: Order Comment: 211-2 Performed By: #### L 100.0100, L501.8100, L501.7700, L500.4050 #### [facility] [address] [place], [address] Platelets (Bld) [#/Vol] 186 10*3/uL Normal 150-450 [facility] Comment on above: Order Comment: 211-2 Performed By: #### L 100.0100, L501.8100, L501.7700, L500.4050 #### [facility] [address] [place], [address] RBC (Bld) [#/Vol] 3.41 10*6/uL Low 4.2-5.4 [facility] Comment on above: Order Comment: 211-2 Performed By: #### L 100.0100, L501.8100, L501.7700, L500.4050 #### [facility] [address] [place], [address] RDW SD 46.7 fl High 35.1-43.9 [facility] Comment on above: Order Comment: 211-2 Performed By: #### L 100.0100, L501.8100, L501.7700, L500.4050 #### [facility] [address] [place], [address] WBC (Bld) [#/Vol] 7.4 10*3/uL Normal 4.4-11.0 [facility] Comment on above: Order Comment: 211-2 Performed By: #### L 100.0100, L501.8100, L501.7700, L500.4050 #### [facility] [address] [place], [address] Kuldip 03-04-2025 [facility] Telephone (WSTR) -------- KATHERYN [id number]) 1945 F Date Time Provider Department 03/04/25 LOLITA JAIN RHWSTR During your visit today, we recorded the following information about you: Lolita Jain PA-C 03/04/2025 4:50 PM Signed Labs dated 02/27/25 from [facility] CTX 197 SPEP - normal [...] I called and spoke with Katia at [facility]. Message from Lolita Jain PA-C given and Katia verbalized understanding. Mary Ronquillo LPN 03/17/2025 2:[address] [facility] calling to see if there has been any updates regarding the [facility] or if there are any alternatives we should consider due to cost? Appears that [facility] did get precert approved through February 2027 and were waiting to contact [facility] due to PTH. ADIA Wilson Kaitlyn, PA-C [...] called and spoke with YVONNE Amaya at [facility]. Message given to her from provider and [...] plan to move forward with [facility]. Shavonne Sinclair, MEGA 03/23/2025 3:15 PM Signed Called and gave below message and orders to staff nurse at [facility]. Orders read back. MEGA Mast Danelle, RN 04/15/2025 10:25 AM Signed PTH was drawn 04/06/25. group home staff to be faxing results to office. Shavonne Sinclair RN Allergies As of Date: 03/04/2025 (No Known Allergies) Date Reviewed: 02/25/2025 Reviewed by: Jacki Sumner MA - Fully Assessed Reason for Visit: Received Outside Medical Records [3576] Primary Visit Diagnosis:Osteoporosis without current pathological fracture, unspecified osteoporosis type [M81.0] Other Visit Diagnosis:Elevated parathyroid hormone [R79.89] Order(s):PTH INTACT [SQPTHI] Order #: [id number] FUTURE Prescriptions as of 04/15/2025 - insulin [...] mg/spray (0.1 mL) nasal spray Use 1 Chitina in the nose as needed for seizures [...] - fu (more content not included)... Normal [facility] Carbon dioxide, total [Moles /volume] in Central venous bloodOrdered By: Todd Velasquez on 03-04-2025 CO2 [Moles/Vol] 24.0 mmol/L 21.0-32.0 [facility] Chloride assayOrdered By: Whitley on 03-04-2025 Chloride [Moles/Vol] 107 mmol/L 98-108 [facility] Comprehensive Metabolic Prof ilon 03-04-2025 Albumin [Mass/Vol] 3.7 g/dL Normal 3.4-4.8 [facility] Comment on above: Order Comment: 211-2 Performed By: #### L 100.0100, L501.8100, L501.7700, L500.4050 #### [facility] [address] [place], [address] Albumin/Globulin [Mass ratio] 1.2 {ratio} Normal 0.9-2.4 [facility] Comment on above: Order Comment: 211-2 Performed By: #### L 100.0100, L501.8100, L501.7700, L500.4050 #### [facility] [address] [place], [address] ALK PHOS 84 U/L Normal 35-104 [facility] Comment on above: Order Comment: 211-2 Performed By: #### L 100.0100, L501.8100, L501.7700, L500.4050 #### [facility] [address] [place], [address] ALT [Catalytic activity/Vol] 6 U/L Normal <=34 [facility] Comment on above: Order Comment: 211-2 Performed By: #### L 100.0100, L501.8100, L501.7700, L500.4050 #### [facility] [address] [place], [address] AST [Catalytic activity/Vol] 22 U/L Normal <=31 [facility] Comment on above: Order Comment: 211-2 Performed By: #### L 100.0100, L501.8100, L501.7700, L500.4050 #### [facility] [address] [place], [address] Bilirubin [Mass/Vol] 0.21 mg/dL Normal 0.00-1.30 [facility] Comment on above: Order Comment: 211-2 Performed By: #### L 100.0100, L501.8100, L501.7700, L500.4050 #### [facility] [address] [place], [address] BUN/CRE 22.8 RATIO High 10-20 [facility] Comment on above: Order Comment: 211-2 Performed By: #### L 100.0100, L501.8100, L501.7700, L500.4050 #### [facility] [address] [place], [address] Calcium [Mass/Vol] 9.1 mg/dL Normal 7.6-11.0 [facility] Comment on above: Order Comment: 211-2 Performed By: #### L 100.0100, L501.8100, L501.7700, L500.4050 #### [facility] [address] [place], [address] Chloride [Moles/Vol] 107 mmol/L Normal 98-108 [facility] Comment on above: Order Comment: 211-2 Performed By: #### L 100.0100, L501.8100, L501.7700, L500.4050 #### [facility] [address] [place], [address] CO2 [Moles/Vol] 24.0 mmol/L Normal 21.0-32.0 [facility] Comment on above: Order Comment: 211-2 Performed By: #### L 100.0100, L501.8100, L501.7700, L500.4050 #### [facility] [address] [place], [address] Creatinine [Mass/Vol] 0.74 mg/dL Normal 0.70-1.20 [facility] Comment on above: Order Comment: 211-2 Performed By: #### L 100.0100, L501.8100, L501.7700, L500.4050 #### [facility] [address] [place], [address] GAP 9 Normal 5-15 [facility] Comment on above: Order Comment: 211-2 Performed By: #### L 100.0100, L501.8100, L501.7700, L500.4050 #### [facility] [address] [place], [address] GFR/1.73 sq M.predicted among non-blacks MDRD (S/P/Bld) [Vol rate/Area] 83 mL/min/{1.73_m2} Normal >60 [facility] Comment on above: Order Comment: Result Comment: mL/m in/1.73m2 CKD-EPI Creatinine Equation (2020) Performed By: #### L 100.0100, L501.8100, L501.7700, L500.4050 #### [facility] [address] [place], [address] Globulin (S) [Mass/Vol] 3.1 g/dL Normal 2.2-4.2 [facility] Comment on above: Order Comment: -2 Performed By: #### L 100.0100, L501.8100, L501.7700, L500.4050 #### [facility] [address] [place], [address] Glucose [Mass/Vol] 93 mg/dL Normal 70-99 [facility] Comment on above: Order Comment: -2 Performed By: #### L 100.0100, L501.8100, L501.7700, L500.4050 #### [facility] [address] [place], [address] Potassium [Moles/Vol] 4.9 mmol/L Normal 3.3-5.1 [facility] Comment on above: Order Comment: -2 Performed By: #### L 100.0100, L501.8100, L501.7700, L500.4050 #### [facility] [address] [place], [address] Sodium [Moles/Vol] 140 mmol/L Normal 133-145 [facility] Comment on above: Order Comment: -2 Performed By: #### L 100.0100, L501.8100, L501.7700, L500.4050 #### [facility] [address] [place], [address] T PROT 6.7 g/dL Normal 5.9-8.4 [facility] Comment on above: Order Comment: 211-2 Performed By: #### L 100.0100, L501.8100, L501.7700, L500.4050 #### [facility] [address] [place], [address] Urea nitrogen [Mass/Vol] 17 mg/dL Normal 4-19 [facility] Comment on above: Order Comment: 211-2 Performed By: #### L 100.0100, L501.8100, L501.7700, L500.4050 #### [facility] [address] [place], [address] Erythrocyte distribution wid th ratioOrdered By: Todd Velasquez on 03-04-2025 Erythrocyte distribution width (RBC) [Ratio] 14.5 % 11.6-14.6 [facility] Erythrocyte distribution wid th standard deviationOrdered By: Todd Velasquez on 03-04-2025 Erythrocyte distribution width (RBC) [Ratio] 46.7 fl High 35.1-43.9 [facility] Glomerular filtration rate ( GFR) estimation/1.73 sq m using serum, plasma, or whole bOrdered By: Todd Velasquez on 03-04-2025 GFR/1.73 sq M.predicted among non-blacks MDRD (S/P/Bld) [Vol rate/Area] 83 mL/min/{1.73_m2} >60 [facility] Comment on above: mL/min/1.73m2 CKD-EP I Creatinine Equation (2020) Hematocrit Auto (Bld) [Volum e fraction]Ordered By: Todd Velasquez on 03-04-2025 Hematocrit (Bld) [Volume fraction] 30.2 % Low 37-47 [facility] Hemoglobin measurementOrdere d By: Todd Velasquez on 03-04-2025 Hemoglobin (Bld) [Mass/Vol] 9.6 g/dL Low 12.0-15.0 [facility] - Chemistry and C hemistry - challengeOrdered By: Todd Velasquez on 03-04-2025 AST [Catalytic activity/Vol] 22 U/L <32 [facility] MCV (mean corpuscular volume ) determinationOrdered By: Todd Velasquez on 03-04-2025 MCV (RBC) [Entitic vol] 88.6 fL 81-99 [facility] Mean corpuscular hemoglobin (MCH) determinationOrdered By: Todd Velasquez on 03-04-2025 MCH (RBC) [Entitic mass] 28.2 pg 27.0-32.0 [facility] Mean corpuscular hemoglobin concentration (MCHC) determinationOrdered By: Todd Velasquez on 03-04-2025 MCHC (RBC) [Mass/Vol] 31.8 g/dL Low 32-36 [facility] Mean platelet volume determi nationOrdered By: Todd Velasquez on 03-04-2025 Platelet mean volume (Bld) [Entitic vol] 12.1 fL High 6.2-12.0 [facility] Platelet countOrdered By: Whitley on 03-04-2025 Platelets (Bld) [#/Vol] 186 10*3/uL 150-450 [facility] Potassium measurement (mass/ volume)Ordered By: Todd Velasquez on 03-04-2025 Potassium (Unsp spec) [Mass/Vol] 4.9 mmol/L 3.3-5.1 [facility] RBC Auto (Bld) [#/Vol]Ordere d By: Todd Velasquez on 03-04-2025 RBC (Bld) [#/Vol] 3.41 10*6/uL Low 4.2-5.4 [facility] Serum creatinine measurement (mass/volume)Ordered By: Todd Velasquez on 03-04-2025 Creatinine [Mass/Vol] 0.74 mg/dL 0.70-1.20 [facility] Serum globulin measurementOr dered By: Todd Velasquez on 03-04-2025 Globulin (S) [Mass/Vol] 3.1 g/dL 2.2-4.2 [facility] Serum glucose measurement (m ass/volume)Ordered By: Todd Velasquez on 03-04-2025 Glucose [Mass/Vol] 93 mg/dL 70-99 [facility] Serum or plasma alanine ignacio otransferase (ALT) measurementOrdered By: Todd Velasquez on 03-04-2025 ALT [Catalytic activity/Vol] 6 U/L <35 [facility] Serum or plasma albumin jacob urement (mass/volume)Ordered By: Todd Velasquez on 03-04-2025 Albumin [Mass/Vol] 3.7 g/dL 3.4-4.8 [facility] Serum or plasma albumin/glob ulin mass ratioOrdered By: Todd Velasquez on 03-04-2025 Albumin/Globulin [Mass ratio] 1.2 {ratio} 0.9-2.4 [facility] Serum or plasma alkaline phillip sphatase measurementOrdered By: Todd Velasquez on 03-04-2025 ALP [Catalytic activity/Vol] 84 U/L 35-104 [facility] Serum or plasma calcium jacob urement (mass/volume)Ordered By: Todd Velasquez on 03-04-2025 Calcium [Mass/Vol] 9.1 mg/dL 7.6-11.0 [facility] Serum or plasma urea nitroge n measurement (mass/volume)Ordered By: Todd Velasquez on 03-04-2025 Urea nitrogen [Mass/Vol] 17 mg/dL 4-19 [facility] Sodium levelOrdered By: Todd Velasquez on 03-04-2025 Sodium [Moles/Vol] 140 mmol/L 133-145 [facility] Total proteinOrdered By: Ignacia Velasquez on 03-04-2025 Protein [Mass/Vol] 6.7 g/dL 5.9-8.4 [facility] White blood cell (WBC) count Ordered By: Todd Velasquez on 03-04-2025 WBC (Bld) [#/Vol] 7.4 10*3/uL 4.4-11.0 [facility] L3410.9992on 03-02-2025 [facility] Misc. COMMENT Normal . [facility] Comment on above: Order Comment: [id number] Result Comment: Test Ordered: [id number] C-Telopeptide, Serum C-Telopeptide, Serum 197 pg/mL ES Reference Range: . Reference Range: Premenopausal Women: 34 - 635 Postmenopausal Women: 34 - 1037 Performed at: [employer] [facility] [employer] [address] [place] [id number] Community Outreach Director: Felix Bonilla MD, Phone: [phone] Performed at: - [facility] [id number] Community Outreach Director: Haris Peraza PhD, Phone: [phone] Performed By: #### L 100.0100, L501.8100, L501.7700, L500.4050 #### [facility] [address] [place], [address] Protein Electroph, Son 03-02 Albumin [Mass/Vol] 3.2 g/dL Normal 2.9-4.4 [facility] Comment on above: Order Comment: 729 Performed By: #### L 100.0100, L501.8100, L501.7700, L500.4050 #### [facility] [address] [place], [address] Albumin/Globulin [Mass ratio] 0.9 {ratio} Normal 0.7-1.7 [facility] Comment on above: Order Comment: 729 Performed By: #### L 100.0100, L501.8100, L501.7700, L500.4050 #### [facility] [address] [place], [address] ALPHA-1 GLOBUL 0.2 g/dL Normal 0.0-0.4 [facility] Comment on above: Order Comment: 729 Performed By: #### L 100.0100, L501.8100, L501.7700, L500.4050 #### [facility] [address] [place], [address] ALPHA-2 GLOBUL 0.8 g/dL Normal 0.4-1.0 [facility] Comment on above: Order Comment: 729 Performed By: #### L 100.0100, L501.8100, L501.7700, L500.4050 #### [facility] [address] [place], [address] BETA GLOBULIN 1.2 g/dL Normal 0.7-1.3 [facility] Comment on above: Order Comment: 729 Performed By: #### L 100.0100, L501.8100, L501.7700, L500.4050 #### [facility] [address] [place], [address] GAMMA GLOBULIN 1.3 g/dL Normal 0.4-1.8 [facility] Comment on above: Order Comment: 729 Performed By: #### L 100.0100, L501.8100, L501.7700, L500.4050 #### [facility] [address] [place], [address] Globulin (S) [Mass/Vol] 3.5 g/dL Normal 2.2-3.9 [facility] Comment on above: Order Comment: 729 Performed By: #### L 100.0100, L501.8100, L501.7700, L500.4050 #### [facility] [address] [place], [address] INTERPRETATION Comment Normal . [facility] Comment on above: Order Comment: 729 Result Comment: Prot ein electrophoresis scan will follow via computer, mail, or broadcast operations director delivery. Performed By: #### L 100.0100, L501.8100, L501.7700, L500.4050 #### [facility] [address] [place], [address] M-SPIKE Not Observed Normal Not Observed [facility] Comment on above: Order Comment: 729 Performed By: #### L 100.0100, L501.8100, L501.7700, L500.4050 #### [facility] [address] [place], [address] NOTE: Comment Normal . [facility] Comment on above: Order Comment: 729 Result Comment: The SPE pattern appears unremarkable. Evidence of monoclonal protein is not apparent. Performed at: [address] [id number] Community Outreach Director: Haris Peraza PhD, Phone: [phone] Performed By: #### L 100.0100, L501.8100, L501.7700, L500.4050 #### [facility] [address] [place], [place], [id number] Protein [Mass/Vol] 6.7 g/dL Normal 6.0-8.5 [facility] Comment on above: Order Comment: 729 Performed By: #### L 100.0100, L501.8100, L501.7700, L500.4050 #### [facility] [address] [place], [address] Albumin Elph [Mass/Vol]Order ed By: Todd Velasquez on 02-27-2025 Albumin [Mass/Vol] 3.2 g/dL 2.9-4.4 [facility] Anion gap in Serum or Plasma Ordered By: Todd Velasquez on 02-27-2025 Anion gap [Moles/Vol] 10 mmol/L 5-15 [facility] BUN/creatinine ratioOrdered By: Todd Velasquez on 02-27-2025 Urea nitrogen/Creatinine [Mass ratio] 30.7 mg/mg High - [facility] Basic Metabolic Profile (BMP )on 02-27-2025 BUN/CRE 30.7 RATIO High - [facility] Comment on above: Order Comment: 729 Performed By: #### L 100.0100, L501.8100, L501.7700, L500.4050 #### [facility] [address] [place], [address] Calcium [Mass/Vol] 9.5 mg/dL Normal 7.6-11.0 [facility] Comment on above: Order Comment: 729 Performed By: #### L 100.0100, L501.8100, L501.7700, L500.4050 #### [facility] [address] [place], [address] Chloride [Moles/Vol] 106 mmol/L Normal 98-108 [facility] Comment on above: Order Comment: 729 Performed By: #### L 100.0100, L501.8100, L501.7700, L500.4050 #### [facility] [address] [place], [address] CO2 [Moles/Vol] 21.8 mmol/L Normal 21.0-32.0 [facility] Comment on above: Order Comment: 729 Performed By: #### L 100.0100, L501.8100, L501.7700, L500.4050 #### [facility] [address] [place], [address] Creatinine [Mass/Vol] 0.72 mg/dL Normal 0.70-1.20 [facility] Comment on above: Order Comment: 729 Performed By: #### L 100.0100, L501.8100, L501.7700, L500.4050 #### [facility] [address] [place], [address] GAP 10 Normal 5-15 [facility] Comment on above: Order Comment: 729 Performed By: #### L 100.0100, L501.8100, L501.7700, L500.4050 #### [facility] [address] [place], [address] GFR/1.73 sq M.predicted among non-blacks MDRD (S/P/Bld) [Vol rate/Area] 86 mL/min/{1.73_m2} Normal >60 [facility] Comment on above: Order Comment: 729 Result Comment: mL/m in/1.73m2 CKD-EPI Creatinine Equation (2020) Performed By: #### L 100.0100, L501.8100, L501.7700, L500.4050 #### [facility] [address] [place], [address] Glucose [Mass/Vol] 92 mg/dL Normal 70-99 [facility] Comment on above: Order Comment: 729 Performed By: #### L 100.0100, L501.8100, L501.7700, L500.4050 #### [facility] [address] [place], [address] Potassium [Moles/Vol] 4.7 mmol/L Normal 3.3-5.1 [facility] Comment on above: Order Comment: 729 Performed By: #### L 100.0100, L501.8100, L501.7700, L500.4050 #### [facility] [address] [place], [address] Sodium [Moles/Vol] 138 mmol/L Normal 133-145 [facility] Comment on above: Order Comment: 729 Performed By: #### L 100.0100, L501.8100, L501.7700, L500.4050 #### [facility] [address] [place], [address] Urea nitrogen [Mass/Vol] 22 mg/dL High 4-19 [facility] Comment on above: Order Comment: 729 Performed By: #### L 100.0100, L501.8100, L501.7700, L500.4050 #### [facility] [address] [place], [address] Carbon dioxide, total [Moles /volume] in Central venous bloodOrdered By: Todd Velasquez on 02-27-2025 CO2 [Moles/Vol] 21.8 mmol/L 21.0-32.0 [facility] Chloride assayOrdered By: Whitley on 02-27-2025 Chloride [Moles/Vol] 106 mmol/L 98-108 [facility] Glomerular filtration rate ( GFR) estimation/1.73 sq m using serum, plasma, or whole bOrdered By: Todd Velasquez on 02-27-2025 GFR/1.73 sq M.predicted among non-blacks MDRD (S/P/Bld) [Vol rate/Area] 86 mL/min/{1.73_m2} >60 [facility] Comment on above: mL/min/1.73m2 CKD-EP I Creatinine Equation (2020) L501.2276on 02-27-2025 Ionized Calcium 1.27 mmol/L Normal 1.09-1.30 [facility] Comment on above: Performed By: #### L 100.0100, L501.8100, L501.7700, L500.4050 #### [facility] [address] [place], [address] Magnesiumon 02-27-2025 Magnesium [Mass/Vol] 2.2 mg/dL Normal 1.5-2.2 [facility] Comment on above: Order Comment: [phone] Performed By: #### L 100.0100, L501.8100, L501.7700, L500.4050 #### [facility] [address] [place], [address] Magnesium measurement (mass/ volume)Ordered By: Todd Velasquez on 02-27-2025 Magnesium (Unsp spec) [Mass/Vol] 2.2 mg/dL 1.5-2.2 [facility] No Panel InformationOrdered By: Todd Velasquez on 02-27-2025 Addendum Document Comment . [facility] Comment on above: The SPE pattern appe ars unremarkable. Evidence ofmonoclonal protein is not apparent.Performed at: - [facility] [id number] [place], [place] [id number] Director: Haris Peraza PhD, Phone: [phone] PTHINon 02-27-2025 PTH 68 pg/mL High 11-61 [facility] Comment on above: Performed By: #### L 100.0100, L501.8100, L501.7700, L500.4050 #### [facility] [address] [place], [place], [id number] Phosphoruson 02-27-2025 Phosphate [Mass/Vol] 3.7 mg/dL Normal 2.7-4.5 [facility] Comment on above: Order Comment: 729 Performed By: #### L 100.0100, L501.8100, L501.7700, L500.4050 #### [facility] [address] [place], [place], [id number] Potassium measurement (mass/ volume)Ordered By: Todd Velasquez on 02-27-2025 Potassium (Unsp spec) [Mass/Vol] 4.7 mmol/L 3.3-5.1 [facility] Protein Fractions Elph [Inte rp]Ordered By: Todd Velasquez on 02-27-2025 Protein Fractions [Interp] Comment . [facility] Comment on above: Protein electrophore sis scan will follow via computer,mail, or broadcast operations director delivery. Serum albumin to globulin ra millicent by protein electrophoresisOrdered By: Todd Velasquez on 02-27-2025 Albumin/Globulin Elph [Mass ratio] 0.9 0.7-1.7 [facility] Serum creatinine measurement (mass/volume)Ordered By: Todd Velasquez on 02-27-2025 Creatinine [Mass/Vol] 0.72 mg/dL 0.70-1.20 [facility] Serum globulin measurement ( mass/volume)Ordered By: Todd Velasquez on 02-27-2025 Globulin (S) [Mass/Vol] 3.5 g/dL 2.2-3.9 [facility] Serum glucose measurement (m ass/volume)Ordered By: Todd Velasquez on 02-27-2025 Glucose [Mass/Vol] 92 mg/dL 70-99 [facility] Serum or plasma beta globuli n measurement by electrophoresis (mass/volume)Ordered By: Todd Velasquez on 02-27-2025 Beta globulin Elph [Mass/Vol] 1.2 g/dL 0.7-1.3 [facility] Serum or plasma calcium jacob urement (mass/volume)Ordered By: Todd Velasquez on 02-27-2025 Calcium [Mass/Vol] 9.5 mg/dL 7.6-11.0 [facility] Serum or plasma protein jacob urement (mass/volume)Ordered By: Todd Velasquez on 02-27-2025 Protein [Mass/Vol] 6.7 g/dL 6.0-8.5 [facility] Serum or plasma protein mono clonal measurement by electrophoresis (mass/volume)Ordered By: Todd Velasquez on 02-27-2025 Protein.monoclonal Elph [Mass/Vol] Not Observed g/dL Not Observed [facility] Serum or plasma urea nitroge n measurement (mass/volume)Ordered By: Todd Velasquez on 02-27-2025 Urea nitrogen [Mass/Vol] 22 mg/dL High 4-19 [facility] Sodium levelOrdered By: Todd Velasquez on 02-27-2025 Sodium [Moles/Vol] 138 mmol/L 133-145 [facility] Vitamin D,25 Hydroxyon 02-27 Vitamin D 25-OH 46.9 ng/mL Normal 30-100 [facility] Comment on above: Order Comment: [phone] Result Comment: Valery min D Status Deficiency: <20 ng/mL (50nmol/L) Insufficiency: 20-30 ng/mL (50-75 nmol/L) Sufficiency: 30-100 ng/mL (75-250 nmol/L) Toxicity: >100 ng/mL (>250 nmol/L) Performed By: #### L 100.0100, L501.8100, L501.7700, L500.4050 #### [facility] [address] [place], [address] CNPAni 02-26-2025 [facility] Telephone (RHWSTR) -------- KATHERYN CHINO ([id number]) 1945 F Date Time Provider Department 02/26/25 LOLITA JAIN [facility] [[email or web address]] During your visit today, we recorded the following information about you: Felipa Zuñiga LPN 02/26/2025 11:50 AM Signed Bill from [facility] called into office requesting clarification of calcium citrate supplement. Per office note SHILO velazquez states "The recommendation is 4366-9143 mg of calcium daily between diet and supplement. If she continues to eat 3 servings of dairy per day, I recommend additional 600 mg daily via calcium citrate supplement. " Office note faxed to [facility]. Nurse states that patient in almost [...] 02/26/2025 2:55 PM Signed Hermann Avalos from [facility] called back. Message from Lolita Jain PA-C [...] mg/spray (0.1 mL) nasal spray Use 1 [place] in the nose as needed for seizures [...] Encounter Status:Closed by JACKI SUMNER on 02/26/25 [facility] CNOVon 02-25-2025 CNOV Office Visit (RHWSTR ) -------- CLARITAJOSE SAMPSONIA ([id number]) 1945 F Date Time Provider Department 02/25/25 3:00 PM LOLITA JAIN [facility] [[email or web address]] During your visit today, we recorded the following information about you: Pulse Blood pressure Weight 71/minute 142/67 81.2 kg Lolita Jain PA-C 02/25/2025 4:03 PM Signed Osteoporosis and Metabolic Bone Disease CONSULTATION Referring Provider: Jayant Jimenez Date of Service: 02/25/2025 Gender: female Ethnicity: White Age: [age] year old Chief Complaint: New Patient Last Rheumatology visit: None at [facility] Katheryn Chino is a 79 year old [...] years, Gender: Female SCANNER INFORMATION: DXA Model: Jiberish - TestObject [id number] Date Scanned: 11/26/2024 11:08 AM CLINICAL HISTORY: 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 VERTEBRAL FRACTURE ASSESSMENT Not performed. TRABECULAR [...] for treatment. (more content not included)... Normal [facility] Anion gap in Serum or Plasma Ordered By: Todd Velasquez on 02-02-2025 Anion gap [Moles/Vol] 11 mmol/L - [facility] BUN/creatinine ratioOrdered By: Todd Velasquez on 02-02-2025 Urea nitrogen/Creatinine [Mass ratio] 20.1 mg/mg High 08-03 [facility] Basic Metabolic Profile (BMP )on 02-02-2025 BUN/CRE 20.1 RATIO High 08-03 [facility] Comment on above: Order Comment: [id number] Performed By: #### L 100.0100, L501.8100, L501.7700, L500.4050 #### [facility] [address] [place], [address] Calcium [Mass/Vol] 8.9 mg/dL Normal 7.6-11.0 [facility] Comment on above: Order Comment: 729 Performed By: #### L 100.0100, L501.8100, L501.7700, L500.4050 #### [facility] [address] [place], [address] Chloride [Moles/Vol] 105 mmol/L Normal 98-108 [facility] Comment on above: Order Comment: 729 Performed By: #### L 100.0100, L501.8100, L501.7700, L500.4050 #### [facility] [address] [place], [address] CO2 [Moles/Vol] 21.8 mmol/L Normal 21.0-32.0 [facility] Comment on above: Order Comment: 729 Performed By: #### L 100.0100, L501.8100, L501.7700, L500.4050 #### [facility] [address] [place], [address] Creatinine [Mass/Vol] 0.65 mg/dL Low 0.70-1.20 [facility] Comment on above: Order Comment: 729 Performed By: #### L 100.0100, L501.8100, L501.7700, L500.4050 #### [facility] [address] [place], [address] GAP 11 Normal 5-15 [facility] Comment on above: Order Comment: 729 Performed By: #### L 100.0100, L501.8100, L501.7700, L500.4050 #### [facility] [address] [place], [address] GFR/1.73 sq M.predicted among non-blacks MDRD (S/P/Bld) [Vol rate/Area] 91 mL/min/{1.73_m2} Normal >60 [facility] Comment on above: Order Comment: 729 Result Comment: mL/m in/1.73m2 CKD-EPI Creatinine Equation (2020) Performed By: #### L 100.0100, L501.8100, L501.7700, L500.4050 #### [facility] [address] [place], [address] Glucose [Mass/Vol] 85 mg/dL Normal 70-99 [facility] Comment on above: Order Comment: 729 Performed By: #### L 100.0100, L501.8100, L501.7700, L500.4050 #### [facility] [address] [place], [address] Potassium [Moles/Vol] 4.2 mmol/L Normal 3.3-5.1 [facility] Comment on above: Order Comment: 729 Performed By: #### L 100.0100, L501.8100, L501.7700, L500.4050 #### [facility] [address] [place], [address] Sodium [Moles/Vol] 138 mmol/L Normal 133-145 [facility] Comment on above: Order Comment: 729 Performed By: #### L 100.0100, L501.8100, L501.7700, L500.4050 #### [facility] [address] [place], [address] Urea nitrogen [Mass/Vol] 13 mg/dL Normal 4-19 [facility] Comment on above: Order Comment: 729 Performed By: #### L 100.0100, L501.8100, L501.7700, L500.4050 #### [facility] [place], [address] Carbon dioxide, total [Moles /volume] in Central venous bloodOrdered By: Todd Velasquez on 02-02-2025 CO2 [Moles/Vol] 21.8 mmol/L 21.0-32.0 [facility] Chloride assayOrdered By: Whitley on 02-02-2025 Chloride [Moles/Vol] 105 mmol/L 98-108 [facility] GFR/1.73 sq M.predicted miguel g non-blacks MDRD (S/P/Bld) [Vol rate/Area]Ordered By: Todd Velasquez on 02-02-2025 Estimated GFR (MDRD) Non-Af Amer 91 >60 [facility] Comment on above: mL/min/1.73m2 CKD-EP I Creatinine Equation (2020) Glomerular filtration rate ( GFR) estimation/1.73 sq m using serum, plasma, or whole bOrdered By: Todd Velasquez on 02-02-2025 GFR/1.73 sq M.predicted among non-blacks MDRD (S/P/Bld) [Vol rate/Area] 91 mL/min/{1.73_m2} >60 [facility] Comment on above: mL/min/1.73m2 CKD-EP I Creatinine Equation (2020) Potassium (Unsp spec) [Mass/ Vol]Ordered By: Todd Velasquez on 02-02-2025 Potassium [Moles/Vol] 4.2 mmol/L 3.3-5.1 [facility] Potassium measurement (mass/ volume)Ordered By: Todd Velasquez on 02-02-2025 Potassium (Unsp spec) [Mass/Vol] 4.2 mmol/L 3.3-5.1 [facility] Serum creatinine measurement (mass/volume)Ordered By: Todd Velasquez on 02-02-2025 Creatinine [Mass/Vol] 0.65 mg/dL Low 0.70-1.20 [facility] Serum glucose measurement (m ass/volume)Ordered By: Todd Velasquez on 02-02-2025 Glucose [Mass/Vol] 85 mg/dL 70-99 [facility] Serum or plasma calcium jacob urement (mass/volume)Ordered By: Todd Velasquez on 02-02-2025 Calcium [Mass/Vol] 8.9 mg/dL 7.6-11.0 [facility] Serum or plasma urea nitroge n measurement (mass/volume)Ordered By: Todd Velasquez on 02-02-2025 Urea nitrogen [Mass/Vol] 13 mg/dL 4-19 [facility] Sodium levelOrdered By: Todd Velasquez on 02-02-2025 Sodium [Moles/Vol] 138 mmol/L 133-145 [facility] TSH DL <= 0.005 mIU/L QnOrde red By: Todd Velasquez on 01-28-2025 Thyroid Stimulating Hormone (TSH) 2.410 uIU/mL 0.300-4.20 0 [facility] TSH Qn 2.410 uIU/mL 0.300-4.20 0 [facility] Thyroid Stim Hormone (TSH)on 01-28-2025 TSH 2.410 uIU/mL Normal 0.300-4.20 0 [facility] Comment on above: Order Comment: 1940 Performed By: #### L 501.7700 #### [facility] [address] [place], [place], [address] Anion gap in Serum or Plasma Ordered By: Todd Velasquez on 01-19-2025 Anion gap [Moles/Vol] 12 mmol/L 5-15 [facility] BUN/creatinine ratioOrdered By: Todd Velasquez on 01-19-2025 Urea nitrogen/Creatinine [Mass ratio] 20.6 mg/mg High 10- [facility] Basic Metabolic Profile (BMP )on 01-19-2025 BUN/CRE 20.6 RATIO High - [facility] Comment on above: Order Comment: 211-2 Performed By: #### L 100.0100, L501.8100, L501.7700, L500.4050 #### [facility] [address] [place], [place], [address] Calcium [Mass/Vol] 9.1 mg/dL Normal 7.6-11.0 [facility] Comment on above: Order Comment: 211-2 Performed By: #### L 100.0100, L501.8100, L501.7700, L500.4050 #### [facility] [address] [place], [address] Chloride [Moles/Vol] 104 mmol/L Normal 98-108 [facility] Comment on above: Order Comment: 211-2 Performed By: #### L 100.0100, L501.8100, L501.7700, L500.4050 #### [facility] [address] [place], [address] CO2 [Moles/Vol] 20.1 mmol/L Low 21.0-32.0 [facility] Comment on above: Order Comment: 211-2 Performed By: #### L 100.0100, L501.8100, L501.7700, L500.4050 #### [facility] [address] [place], [address] Creatinine [Mass/Vol] 0.69 mg/dL Low 0.70-1.20 [facility] Comment on above: Order Comment: 211-2 Performed By: #### L 100.0100, L501.8100, L501.7700, L500.4050 #### [facility] [address] [place], [address] GAP 12 Normal 5-15 [facility] Comment on above: Order Comment: 211-2 Performed By: #### L 100.0100, L501.8100, L501.7700, L500.4050 #### [facility] [address] [place], [address] GFR/1.73 sq M.predicted among non-blacks MDRD (S/P/Bld) [Vol rate/Area] 89 mL/min/{1.73_m2} Normal >60 [facility] Comment on above: Order Comment: 211- Result Comment: mL/m in/1.73m2 CKD-EPI Creatinine Equation (2020) Performed By: #### L 100.0100, L501.8100, L501.7700, L500.4050 #### [facility] [address] [place], [address] Glucose [Mass/Vol] 94 mg/dL Normal 70-99 [facility] Comment on above: Order Comment: 211-2 Performed By: #### L 100.0100, L501.8100, L501.7700, L500.4050 #### [facility] [address] [place], [address] Potassium [Moles/Vol] 4.2 mmol/L Normal 3.3-5.1 [facility] Comment on above: Order Comment: -2 Performed By: #### L 100.0100, L501.8100, L501.7700, L500.4050 #### [facility] [address] [place], [address] Sodium [Moles/Vol] 136 mmol/L Normal 133-145 [facility] Comment on above: Order Comment: -2 Performed By: #### L 100.0100, L501.8100, L501.7700, L500.4050 #### [facility] [address] [place], [address] Urea nitrogen [Mass/Vol] 14 mg/dL Normal 4-19 [facility] Comment on above: Order Comment: 211-2 Performed By: #### L 100.0100, L501.8100, L501.7700, L500.4050 #### [facility] [address] [place], [address] CBC-Complete Blood Cnt No Di ffon 01-19-2025 Erythrocyte distribution width (RBC) [Ratio] 14.1 % Normal 11.6-14.6 [facility] Comment on above: Order Comment: 211-2 Performed By: #### L 100.0100, L501.8100, L501.7700, L500.4050 #### [facility] [address] [place], [address] Hematocrit (Bld) [Volume fraction] 33.3 % Low 37-47 [facility] Comment on above: Order Comment: 211-2 Performed By: #### L 100.0100, L501.8100, L501.7700, L500.4050 #### [facility] [address] [place], [address] Hemoglobin (Bld) [Mass/Vol] 10.8 g/dL Low 12.0-15.0 [facility] Comment on above: Order Comment: 211-2 Performed By: #### L 100.0100, L501.8100, L501.7700, L500.4050 #### [facility] [address] [place], [address] MCH (RBC) [Entitic mass] 28.3 pg Normal 27.0-32.0 [facility] Comment on above: Order Comment: 211-2 Performed By: #### L 100.0100, L501.8100, L501.7700, L500.4050 #### [facility] [address] [place], [address] MCHC (RBC) [Mass/Vol] 32.4 g/dL Normal 32-36 [facility] Comment on above: Order Comment: 211-2 Performed By: #### L 100.0100, L501.8100, L501.7700, L500.4050 #### [facility] [address] [place], [address] MCV (RBC) [Entitic vol] 87.4 fL Normal 81-99 [facility] Comment on above: Order Comment: 211-2 Performed By: #### L 100.0100, L501.8100, L501.7700, L500.4050 #### [facility] [address] [place], [address] Platelet mean volume (Bld) [Entitic vol] 12.3 fL High 6.2-12.0 [facility] Comment on above: Order Comment: 211-2 Performed By: #### L 100.0100, L501.8100, L501.7700, L500.4050 #### [facility] [address] [place], [address] Platelets (Bld) [#/Vol] 193 10*3/uL Normal 150-450 [facility] Comment on above: Order Comment: 211-2 Performed By: #### L 100.0100, L501.8100, L501.7700, L500.4050 #### [facility] [address] [place], [address] RBC (Bld) [#/Vol] 3.81 10*6/uL Low 4.2-5.4 [facility] Comment on above: Order Comment: 211-2 Performed By: #### L 100.0100, L501.8100, L501.7700, L500.4050 #### [facility] [address] [place], [address] RDW SD 45.1 fl High 35.1-43.9 [facility] Comment on above: Order Comment: 211-2 Performed By: #### L 100.0100, L501.8100, L501.7700, L500.4050 #### [facility] [address] [place], [address] WBC (Bld) [#/Vol] 6.3 10*3/uL Normal 4.4-11.0 [facility] Comment on above: Order Comment: 211-2 Performed By: #### L 100.0100, L501.8100, L501.7700, L500.4050 #### [facility] [place] [address] [place], [address] Carbon dioxide, total [Moles /volume] in Central venous bloodOrdered By: Todd Velasquez on 01-19-2025 CO2 [Moles/Vol] 20.1 mmol/L Low 21.0-32.0 [facility] Chloride assayOrdered By: Whitley on 01-19-2025 Chloride [Moles/Vol] 104 mmol/L 98-108 [facility] Erythrocyte distribution wid th (RBC) [Ratio]Ordered By: Todd Velasquez on 01-19-2025 Erythrocyte distribution width (RBC) [Entitic vol] 45.1 fL High 35.1-43.9 [facility] Erythrocyte distribution wid th ratioOrdered By: Todd Velasquez on 01-19-2025 Erythrocyte distribution width (RBC) [Ratio] 14.1 % 11.6-14.6 [facility] Erythrocyte distribution wid th standard deviationOrdered By: Todd Velasquez on 01-19-2025 Erythrocyte distribution width (RBC) [Ratio] 45.1 fl High 35.1-43.9 [facility] GFR/1.73 sq M.predicted miguel g non-blacks MDRD (S/P/Bld) [Vol rate/Area]Ordered By: Todd Velasquez on 01-19-2025 Estimated GFR (MDRD) Non-Af Amer 89 >60 [facility] Comment on above: mL/min/1.73m2 CKD-EP I Creatinine Equation (2020) Glomerular filtration rate ( GFR) estimation/1.73 sq m using serum, plasma, or whole bOrdered By: Todd Velasquez on 01-19-2025 GFR/1.73 sq M.predicted among non-blacks MDRD (S/P/Bld) [Vol rate/Area] 89 mL/min/{1.73_m2} >60 [facility] Comment on above: mL/min/1.73m2 CKD-EP I Creatinine Equation (2020) Hematocrit Auto (Bld) [Volum e fraction]Ordered By: Todd Velasquez on 01-19-2025 Hematocrit (Bld) [Volume fraction] 33.3 % Low 37-47 [facility] Hemoglobin measurementOrdere d By: Todd Velasquez on 01-19-2025 Hemoglobin (Bld) [Mass/Vol] 10.8 g/dL Low 12.0-15.0 [facility] MCV (mean corpuscular volume ) determinationOrdered By: Todd Velasquez on 01-19-2025 MCV (RBC) [Entitic vol] 87.4 fL 81-99 [facility] Mean corpuscular hemoglobin (MCH) determinationOrdered By: Todd Velasquez on 01-19-2025 MCH (RBC) [Entitic mass] 28.3 pg 27.0-32.0 [facility] Mean corpuscular hemoglobin concentration (MCHC) determinationOrdered By: Todd Velasquez on 01-19-2025 MCHC (RBC) [Mass/Vol] 32.4 g/dL 32-36 [facility] Mean platelet volume determi nationOrdered By: Todd Velasquez on 01-19-2025 Platelet mean volume (Bld) [Entitic vol] 12.3 fL High 6.2-12.0 [facility] Platelet countOrdered By: Whitley on 01-19-2025 Platelets (Bld) [#/Vol] 193 10*3/uL 150-450 [facility] Potassium (Unsp spec) [Mass/ Vol]Ordered By: Todd Velasquez on 01-19-2025 Potassium [Moles/Vol] 4.2 mmol/L 3.3-5.1 [facility] Potassium measurement (mass/ volume)Ordered By: Todd Velasquez on 01-19-2025 Potassium (Unsp spec) [Mass/Vol] 4.2 mmol/L 3.3-5.1 [facility] RBC Auto (Bld) [#/Vol]Ordere d By: Todd Velasquez on 01-19-2025 RBC (Bld) [#/Vol] 3.81 10*6/uL Low 4.2-5.4 [facility] Serum creatinine measurement (mass/volume)Ordered By: Todd Velasquez on 01-19-2025 Creatinine [Mass/Vol] 0.69 mg/dL Low 0.70-1.20 [facility] Serum glucose measurement (m ass/volume)Ordered By: Todd Velasquez on 01-19-2025 Glucose [Mass/Vol] 94 mg/dL 70-99 [facility] Serum or plasma calcium jacob urement (mass/volume)Ordered By: Todd Velasquez on 01-19-2025 Calcium [Mass/Vol] 9.1 mg/dL 7.6-11.0 [facility] Serum or plasma urea nitroge n measurement (mass/volume)Ordered By: Todd Velasquez on 01-19-2025 Urea nitrogen [Mass/Vol] 14 mg/dL 4-19 [facility] Sodium levelOrdered By: Todd Velasquez on 01-19-2025 Sodium [Moles/Vol] 136 mmol/L 133-145 [facility] White blood cell (WBC) count Ordered By: Todd Velasquez on 01-19-2025 WBC (Bld) [#/Vol] 6.3 10*3/uL 4.4-11.0 [facility] CNPNon 01-16-2025 CNPN Telephone (NE50MN) -------- KATHERYN CHINO ([id number]) 1945 F Date Time Provider Department 01/16/25 JAYANT JIMENEZ NE50MN During your visit today, we recorded the following information about you: Naheed Guallpa 01/16/2025 12:38 PM Signed Medication Concern Person Calling Katia Nurse from long-term Name of medication Lacosamide Concern with medication They have Katheryn taking 100MG in the morning and 50 mg at night. Per yesterdays appointment it states 150mg at time time. What one should they do ? Patient of Sandra Duncan RN 01/16/2025 4:48 PM Signed 01/15/[address] Galla PLAN: Continue Depakote 500 mg TID ( [...] mg/spray (0.1 mL) nasal spray Use 1 Chitina in the nose as needed for seizures [...] care, counseling/d (more content not included)... Normal [facility] CNOVon 01-15-2025 CNOV Office Visit (NAVEENBA ) -------- KATHERYN CHINO ([id number]) 1945 F Date Time Provider Department 01/15/25 [...] Seizure precautions - No driving in the [facility] until seizure free for 6 months. [...] factor. Jayant Jimenez MD Associate Staff, Epilepsy [facility] January 15, 2025 Office phone: [phone] Jayant Jimenez MD 01/15/2025 8:54 AM Signed [facility] Patient Name: Katheryn Chino Date of : 1945 ESTABLISHED EPILEPSY CLINIC NOTE 01/15/2025 8:00 AM Reason for Visit: Follow Up and Epilepsy Clinical Summary: Ms. Chino is a 79 year old female seen in [facility]. At today's visit, the patient [...] with AEDs . She moved to a [place] and she has more suervison with AEDs now. 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 She had good seizure control for a few years until covid. Hospitaltization in Aug 2024 for a prolonged GTCS at the facility ( brother reports it lasted ~ 25 mins). Admitted to [facility] where Dilantin and Depakote levels were low. [...] a goo (more content not included)... Normal [facility] Serum or plasma valproate me asurement (mass/volume)Ordered By: Todd Velasquez on 12-26-2024 Valproate [Mass/Vol] 91 ug/mL 50-100 [facility] Comment on above: Valproic Acid concen trations >100 ug/mL are potentially toxic. Valproate [Mass/Vol]Ordered By: Todd Velasquez on 12-26-2024 Valproic Acid (Depakene) Level 91 ug/mL 50-100 [facility] Comment on above: Valproic Acid concen trations >100 ug/mL are potentially toxic. Valproic Acid (Depakene) Lev maribell 12-26-2024 VALPROIC ACID 91 ug/mL Normal 50-100 [facility] Comment on above: Order Comment: 211.2 0000 Result Comment: Valp roic Acid concentrations >100 ug/mL are potentially toxic. Performed By: #### L 501.8100, L501.7700 #### [facility] [address] [place], [address] Kuldip 12-24-2024 [facility] Telephone (NEUSES) -------- KATHERYN CHINO ([id number]) 1945 F Date Time Provider Department 12/24/24 JAYANT JIMENEZ During your visit today, we recorded the following information about you: Franchesca Arana 12/24/2024 8:57 AM Signed ORDERS Person requesting order: [facility] Phone number: [phone] Order being requested: Facility: [facility] Patient of Dr. Jimenez Forwarded to Nurse Silvia Rogers RN 12/24/2024 2:24 PM Signed Spoke with nurse Becker at [facility]. See 12/23/24 encounter. Silvia Rogers RN Allergies As of Date: 12/24/2024 (No Known Allergies) Date Reviewed: 09/24/2024 Reviewed by: Shalini Montana LPN - Fully Assessed Reason for Visit: Orders [321] Cmt: [facility] Prescriptions as of 12/24/2024 - midazolam (NAYZILAM) 5 mg/spray (0.1 mL) nasal spray Use 1 Chitina in the nose as needed for seizures [...] Encounter Status:Closed by SILVIA ROGERS on 12/24/24 [facility] Kuldip 12-23-2024 CNPN Telephone (NE50MN) -------- KATHERYN CHINO ([id number]) 1945 F Date Time Provider Department 12/23/24 JAYANT JIMENEZ NE50MN During your visit today, we recorded the following information about you: Chandni Hull 12/23/2024 2:21 PM Signed Medication Concern Person Calling Rosita Cornejo, from [facility], ask for Pat's nurse Name of [...] spray 2 Each 1 Sig: Use 1 Chitina in the nose as needed for seizures lasting longer than 3 minutes. May repeat dose once after 4 hours based on response and tolerability for a maximum of 2 doses per 24-hour period. Authorizing Provider: ARTIS HAMILTON APRN.Silvia Willis RN 12/25/2024 2:36 PM Signed [employer] Rx faxed via [employer] to: [facility] PH: [phone] FAX : [phone] Confirmation received. Called the facility, spoke with [...] 10 mg/spray (0.1 mL) nasal sprayUse 1 Chitina in the nose as needed for seizures lasting longer than 3 minutes. May repeat dose once after 4 hours based on response and tolerability for a maximum of 2 doses per 24-hour period.Disp: 2 EachRfl: 1 Prescriptions as of 12/25/2024 - diazePAM (VALTOCO) 10 mg/spray (0.1 mL) nasal spray Use 1 Chitina in the nose as needed for seizures [...] - d (more content not included)... Normal [facility] CNPNon 12-19-2024 CNPN Telephone (NE50MN) -------- KATHERYN CHINO ([id number]) 1945 F Date Time Provider Department 12/19/24 JAYANT JIMENEZ NE50MN During your visit today, we recorded the following information about you: Timoteo Yocasta METZGER 12/19/2024 12:37 PM Signed OUTSIDE LAB REPORT FACILITY NAME [facility] [place] PHONE/FAX COLLECTION DATE AND TIME: 12/15/24 540 Uploaded to [facility] Silvia Rogers RN 12/19/2024 12:53 PM Signed Current LCM dose 100/150 Forwarded to [facility] [address] [place] for review. MEGA Christianson Kelly, APRN.DWAYNE 12/19/2024 [...] Assessed Reason for Visit: Outside Lab Results [413] Cmt: lacosamide Prescriptions as of 12/24/2024 - midazolam (NAYZILAM) 5 mg/spray (0.1 mL) nasal spray Use 1 Chitina in the nose as needed for seizures [...] Status:Closed by SILVIA ROGERS on 12/24/24 [facility]10.[facility] [place] . [facility] Comment on above: Order Comment: 211-1 Result Comment: Test Ordered: 366238 Lacosamide Test(s) 318195-Hvwwprkrnt was developed and its performance characteristics determined by [facility]. It has not been cleared or approved by the Food and Drug Administration. Lacosamide 4.6 [L ] ug/mL Reference Range: 5.0-10.0 Limit of Detection 0.5 Mean plasma concentrations following maintenance dose 200 mg/day 4.99 +/- 2.51 ug/mL 400 mg/day 9.35 +/- 4.22 ug/mL 600 mg/day 12.46 +/- 5.60 ug/mL Performed at: - [facility] [id number] Community Outreach Director: Nahed Naidu MD, Phone: [phone] Performed at: - [facility] [id number] Community Outreach Director: Haris Peraza PhD, Phone: [phone] Performed By: #### L 500.4050, L100.0500 #### [facility] [address] [place], [address] BUN/creatinine ratioOrdered By: Todd Velasquez on 12-15-2024 Urea nitrogen/Creatinine [Mass ratio] 17.8 mg/mg 10-20 [facility] Bilirubin, totalOrdered By: Todd Velasquez on 12-15-2024 Bilirubin [Mass/Vol] 0.24 mg/dL 0.00-1.30 [facility] CBC-Complete Blood Cnt No Di ffon 12-15-2024 Erythrocyte distribution width (RBC) [Ratio] 13.6 % Normal 11.6-14.6 [facility] Comment on above: Order Comment: Performed By: #### L 500.4050, L100.0500 #### [facility] [address] [place], [address] Hematocrit (Bld) [Volume fraction] 31.6 % Low 37-47 [facility] Comment on above: Order Comment: Performed By: #### L 500.4050, L100.0500 #### [facility] [address] [place], [address] Hemoglobin (Bld) [Mass/Vol] 9.8 g/dL Low 12.0-15.0 [facility] Comment on above: Order Comment: -1 Performed By: #### L 500.4050, L100.0500 #### [facility] [address] [place] [place], [address] MCH (RBC) [Entitic mass] 28.2 pg Normal 27.0-32.0 [facility] Comment on above: Order Comment: - Performed By: #### L 500.4050, L100.0500 #### [facility] [address] [place], [address] MCHC (RBC) [Mass/Vol] 31.0 g/dL Low 32-36 [facility] Comment on above: Order Comment: - Performed By: #### L 500.4050, L100.0500 #### [facility] [address] [place] [place], [address] MCV (RBC) [Entitic vol] 91.1 fL Normal 81-99 [facility] Comment on above: Order Comment: - Performed By: #### L 500.4050, L100.0500 #### [facility] [address] [place], [address] Platelet mean volume (Bld) [Entitic vol] 12.7 fL High 6.2-12.0 [facility] Comment on above: Order Comment: - Performed By: #### L 500.4050, L100.0500 #### [facility] [address] [place], [address] Platelets (Bld) [#/Vol] 194 10*3/uL Normal 150-450 [facility] Comment on above: Order Comment: - Performed By: #### L 500.4050, L100.0500 #### [facility] [address] [place], [address] RBC (Bld) [#/Vol] 3.47 10*6/uL Low 4.2-5.4 [facility] Comment on above: Order Comment: - Performed By: #### L 500.4050, L100.0500 #### [facility] [address] [place], [address] RDW SD 45.2 fl High 35.1-43.9 [facility] Comment on above: Order Comment: Performed By: #### L 500.4050, L100.0500 #### [facility] [address] [place], [address] WBC (Bld) [#/Vol] 7.1 10*3/uL Normal 4.4-11.0 [facility] Comment on above: Order Comment: Performed By: #### L 500.4050, L100.0500 #### [facility] [address] [place], [address] Carbon dioxide measurementOr dered By: Todd Vleasquez on 12-15-2024 CO2 [Moles/Vol] 23.3 mmol/L 22.0-29.0 [facility] Chloride measurementOrdered By: Todd Velasquez on 12-15-2024 Chloride [Moles/Vol] 105 mmol/L 96-108 [facility] Comprehensive Metabolic Prof ilon 12-15-2024 Albumin [Mass/Vol] 3.8 g/dL Normal 3.4-4.8 [facility] Comment on above: Order Comment: Performed By: #### L 500.4050, L100.0500 #### [facility] [address] [place], [address] Albumin/Globulin [Mass ratio] 1.3 {ratio} Normal 0.9-2.4 [facility] Comment on above: Order Comment: Performed By: #### L 500.4050, L100.0500 #### [facility] [address] [place], [address] ALK PHOS 121 U/L High 35-104 [facility] Comment on above: Order Comment: 211-1 Performed By: #### L 500.4050, L100.0500 #### [facility] [address] [place], [address] ALT [Catalytic activity/Vol] 16 U/L Normal <=34 [facility] Comment on above: Order Comment: 211-1 Performed By: #### L 500.4050, L100.0500 #### [facility] [address] [place], [address] Anion gap [Moles/Vol] 9 mmol/L Normal 5-15 [facility] Comment on above: Order Comment: - Performed By: #### L 500.4050, L100.0500 #### [facility] [address] [place], [address] AST [Catalytic activity/Vol] 28 U/L Normal <=31 [facility] Comment on above: Order Comment: 211-1 Performed By: #### L 500.4050, L100.0500 #### [facility] [address] [place], [address] Bilirubin [Mass/Vol] 0.24 mg/dL Normal 0.00-1.30 [facility] Comment on above: Order Comment: 211-1 Performed By: #### L 500.4050, L100.0500 #### [facility] [address] [place], [address] BUN/CRE 17.8 RATIO Normal 10-20 [facility] Comment on above: Order Comment: 211-1 Performed By: #### L 500.4050, L100.0500 #### [facility] [address] [place], [address] Calcium [Mass/Vol] 9.1 mg/dL Normal 7.6-11.0 [facility] Comment on above: Order Comment: Performed By: #### L 500.4050, L100.0500 #### [facility] [address] [place], [address] Chloride [Moles/Vol] 105 mmol/L Normal 96-108 [facility] Comment on above: Order Comment: Performed By: #### L 500.4050, L100.0500 #### [facility] [address] [place], [address] CO2 [Moles/Vol] 23.3 mmol/L Normal 22.0-29.0 [facility] Comment on above: Order Comment: Performed By: #### L 500.4050, L100.0500 #### [facility] [address] [place], [address] Creatinine [Mass/Vol] 0.61 mg/dL Low 0.70-1.20 [facility] Comment on above: Order Comment: Performed By: #### L 500.4050, L100.0500 #### [facility] [address] [place], [address] GFR/1.73 sq M.predicted among non-blacks MDRD (S/P/Bld) [Vol rate/Area] 92 mL/min/{1.73_m2} Normal >60 [facility] Comment on above: Order Comment: Result Comment: mL/m in/1.73m2 CKD-EPI Creatinine Equation (2020) Performed By: #### L 500.4050, L100.0500 #### [facility] [address] [place], [address] Globulin (S) [Mass/Vol] 3.0 g/dL Normal 2.2-4.2 [facility] Comment on above: Order Comment: Performed By: #### L 500.4050, L100.0500 #### [facility] [address] [place], [address] Glucose [Mass/Vol] 90 mg/dL Normal 70-99 [facility] Comment on above: Order Comment: Performed By: #### L 500.4050, L100.0500 #### [facility] [address] [place], [address] Potassium [Moles/Vol] 4.8 mmol/L Normal 3.3-5.1 [facility] Comment on above: Order Comment: Performed By: #### L 500.4050, L100.0500 #### [facility] [address] [place], [address] Sodium [Moles/Vol] 137 mmol/L Normal 133-145 [facility] Comment on above: Order Comment: Performed By: #### L 500.4050, L100.0500 #### [facility] [address] [place], [address] T PROT 6.8 g/dL Normal 5.9-8.4 [facility] Comment on above: Order Comment: Performed By: #### L 500.4050, L100.0500 #### [facility] [address] [place], [address] Urea nitrogen [Mass/Vol] 11 mg/dL Normal 4-19 [facility] Comment on above: Order Comment: Performed By: #### L 500.4050, L100.0500 #### [facility] [address] [place], [address] Erythrocyte distribution wid th (RBC) [Ratio]Ordered By: Todd Velasquez on 12-15-2024 Erythrocyte distribution width (RBC) [Entitic vol] 45.2 fL High 35.1-43.9 [facility] Erythrocyte distribution wid th ratioOrdered By: Todd Velasquez on 12-15-2024 Erythrocyte distribution width (RBC) [Ratio] 13.6 % 11.6-14.6 [facility] Erythrocyte distribution wid th standard deviationOrdered By: Todd Velasquez on 12-15-2024 Erythrocyte distribution width (RBC) [Ratio] 45.2 fl High 35.1-43.9 [facility] GFR/1.73 sq M.predicted miguel g non-blacks MDRD (S/P/Bld) [Vol rate/Area]Ordered By: Todd Velasquez on 12-15-2024 Estimated GFR (MDRD) Non-Af Amer 92 >60 [facility] Comment on above: mL/min/1.73m2 CKD-EP I Creatinine Equation (2020) Glomerular filtration rate ( GFR) estimation/1.73 sq m using serum, plasma, or whole bOrdered By: Todd Velasquez on 12-15-2024 GFR/1.73 sq M.predicted among non-blacks MDRD (S/P/Bld) [Vol rate/Area] 92 mL/min/{1.73_m2} >60 [facility] Comment on above: mL/min/1.73m2 CKD-EP I Creatinine Equation (2020) Hematocrit Auto (Bld) [Volum e fraction]Ordered By: Todd Velasquez on 12-15-2024 Hematocrit (Bld) [Volume fraction] 31.6 % Low 37-47 [facility] Hemoglobin measurementOrdere d By: Todd Velasquez on 12-15-2024 Hemoglobin (Bld) [Mass/Vol] 9.8 g/dL Low 12.0-15.0 [facility] - Chemistry and C hemistry - challengeOrdered By: Todd Velasquez on 12-15-2024 AST [Catalytic activity/Vol] 28 U/L <32 [facility] MCV (mean corpuscular volume ) determinationOrdered By: Todd Velasquez on 12-15-2024 MCV (RBC) [Entitic vol] 91.1 fL 81-99 [facility] Mean corpuscular hemoglobin (MCH) determinationOrdered By: Todd Velasquez on 12-15-2024 MCH (RBC) [Entitic mass] 28.2 pg 27.0-32.0 [facility] Mean corpuscular hemoglobin concentration (MCHC) determinationOrdered By: Todd Velasquez on 12-15-2024 MCHC (RBC) [Mass/Vol] 31.0 g/dL Low 32-36 [facility] Mean platelet volume determi nationOrdered By: Todd Velasquez on 12-15-2024 Platelet mean volume (Bld) [Entitic vol] 12.7 fL High 6.2-12.0 [facility] Platelet countOrdered By: Whitley on 12-15-2024 Platelets (Bld) [#/Vol] 194 10*3/uL 150-450 [facility] RBC Auto (Bld) [#/Vol]Ordere d By: Todd Velasquez on 12-15-2024 RBC (Bld) [#/Vol] 3.47 10*6/uL Low 4.2-5.4 [facility] Serum creatinine measurement (mass/volume)Ordered By: Todd Velasquez on 12-15-2024 Creatinine [Mass/Vol] 0.61 mg/dL Low 0.70-1.20 [facility] Serum globulin measurementOr dered By: Todd Velasquez on 12-15-2024 Globulin (S) [Mass/Vol] 3.0 g/dL 2.2-4.2 [facility] Serum glucose measurement (m ass/volume)Ordered By: Todd Velasquez on 12-15-2024 Glucose [Mass/Vol] 90 mg/dL 70-99 [facility] Serum or plasma alanine ignacio otransferase (ALT) measurementOrdered By: Todd Velasquez on 12-15-2024 ALT [Catalytic activity/Vol] 16 U/L <35 [facility] Serum or plasma albumin jacob urement (mass/volume)Ordered By: Todd Velasquez on 12-15-2024 Albumin [Mass/Vol] 3.8 g/dL 3.4-4.8 [facility] Serum or plasma albumin/glob ulin mass ratioOrdered By: Todd Velasquez on 12-15-2024 Albumin/Globulin [Mass ratio] 1.3 {ratio} 0.9-2.4 [facility] Serum or plasma alkaline phillip sphatase measurementOrdered By: Todd Velasquez on 12-15-2024 ALP [Catalytic activity/Vol] 121 U/L High 35-104 [place] Serum or plasma anion gap de termination (moles/volume)Ordered By: Todd Velasquez on 12-15-2024 Anion gap [Moles/Vol] 9 mmol/L 5-15 [facility] Serum or plasma calcium jacob urement (mass/volume)Ordered By: Todd Velasquez on 12-15-2024 Calcium [Mass/Vol] 9.1 mg/dL 7.6-11.0 [facility] Serum or plasma potassium me asurementOrdered By: Todd Velasquez on 12-15-2024 Potassium [Moles/Vol] 4.8 mmol/L 3.3-5.1 [facility] Serum or plasma sodium measu rement (moles/volume)Ordered By: Todd Velasquez on 12-15-2024 Sodium [Moles/Vol] 137 mmol/L 133-145 [facility] Serum or plasma urea nitroge n measurement (mass/volume)Ordered By: Todd Velasquez on 12-15-2024 Urea nitrogen [Mass/Vol] 11 mg/dL 4-19 [place] Serum or plasma valproate me asurement (mass/volume)Ordered By: Todd Velasquez on 12-15-2024 Valproate [Mass/Vol] 40 ug/mL Low 50-100 [facility] Comment on above: Valproic Acid concen trations >100 ug/mL are potentially toxic. TSH DL <= 0.005 mIU/L QnOrde red By: Todd Velasquez on 12-15-2024 Thyroid Stimulating Hormone (TSH) 4.640 uIU/mL High 0.300-4.20 0 [place] TSH Qn 4.640 uIU/mL High 0.300-4.20 0 [place] Thyroid Stim Hormone (TSH)on 12-15-2024 TSH 4.640 uIU/mL High 0.300-4.20 0 [place] Comment on above: Order Comment: 211-1 Performed By: #### L 500.4050, L100.0500 #### [facility] [address] [place], [place], [id number] Total proteinOrdered By: Ignacia Velasquez on 12-15-2024 Protein [Mass/Vol] 6.8 g/dL 5.9-8.4 [facility] Valproate [Mass/Vol]Ordered By: Todd Velasquez on 12-15-2024 Valproic Acid (Depakene) Level 40 ug/mL Low 50-100 [place] Comment on above: Valproic Acid concen trations >100 ug/mL are potentially toxic. Valproic Acid (Depakene) Lev maribell 12-15-2024 VALPROIC ACID 40 ug/mL Low 50-100 [place] Comment on above: Order Comment: Result Comment: Valp roic Acid concentrations >100 ug/mL are potentially toxic. Performed By: #### L 500.4050, L100.0500 #### [facility] [address] [place], [place], [id number] White blood cell (WBC) count Ordered By: Todd Velasquez on 12-15-2024 WBC (Bld) [#/Vol] 7.1 10*3/uL 4.4-11.0 [facility] BUN/creatinine ratioOrdered By: Todd Velasquez on 12-10-2024 Urea nitrogen/Creatinine [Mass ratio] 20.4 mg/mg High 10-20 [place] Bilirubin, totalOrdered By: Todd Velasquez on 12-10-2024 Bilirubin [Mass/Vol] 0.21 mg/dL 0.00-1.30 [facility] CBC-Complete Blood Cnt No Di ffon 12-10-2024 Erythrocyte distribution width (RBC) [Ratio] 13.2 % Normal 11.6-14.6 [place] Comment on above: Order Comment: Performed By: #### L 500.4050, L100.0500 #### [facility] [address] [place], [place], [id number] Hematocrit (Bld) [Volume fraction] 31.1 % Low 37-47 [place] Comment on above: Order Comment: Performed By: #### L 500.4050, L100.0500 #### [facility] [address] [place], [address] Hemoglobin (Bld) [Mass/Vol] 10.1 g/dL Low 12.0-15.0 [place] Comment on above: Order Comment: - Performed By: #### L 500.4050, L100.0500 #### [facility] [address] [place], [address] MCH (RBC) [Entitic mass] 28.9 pg Normal 27.0-32.0 [place] Comment on above: Order Comment: - Performed By: #### L 500.4050, L100.0500 #### [facility] [address] [place], [address] MCHC (RBC) [Mass/Vol] 32.5 g/dL Normal 32-36 [facility] Comment on above: Order Comment: - Performed By: #### L 500.4050, L100.0500 #### [facility] [address] [place], [address] MCV (RBC) [Entitic vol] 89.1 fL Normal 81-99 [facility] Comment on above: Order Comment: - Performed By: #### L 500.4050, L100.0500 #### [facility] [address] [place], [address] Platelet mean volume (Bld) [Entitic vol] 11.9 fL Normal 6.2-12.0 [place] Comment on above: Order Comment: - Performed By: #### L 500.4050, L100.0500 #### [facility] [address] [place], [address] Platelets (Bld) [#/Vol] 177 10*3/uL Normal 150-450 [place] Comment on above: Order Comment: Performed By: #### L 500.4050, L100.0500 #### [facility] [address] [place], [address] RBC (Bld) [#/Vol] 3.49 10*6/uL Low 4.2-5.4 [facility] Comment on above: Order Comment: Performed By: #### L 500.4050, L100.0500 #### [facility] [address] [place], [address] RDW SD 43.0 fl Normal 35.1-43.9 [place] Comment on above: Order Comment: Performed By: #### L 500.4050, L100.0500 #### [facility] [address] [place], [address] WBC (Bld) [#/Vol] 6.6 10*3/uL Normal 4.4-11.0 [facility] Comment on above: Order Comment: Performed By: #### L 500.4050, L100.0500 #### [facility] [address] [place], [address] Carbon dioxide measurementOr dered By: Todd Velasquez on 12-10-2024 CO2 [Moles/Vol] 24.4 mmol/L 22.0-29.0 [place] Chloride measurementOrdered By: Todd Velasquez on 12-10-2024 Chloride [Moles/Vol] 105 mmol/L 96-108 [facility] Comprehensive Metabolic Prof ilon 12-10-2024 Albumin [Mass/Vol] 3.6 g/dL Normal 3.4-4.8 [facility] Comment on above: Order Comment: Performed By: #### L 500.4050, L100.0500 #### [facility] [address] [place], [address] Albumin/Globulin [Mass ratio] 1.3 {ratio} Normal 0.9-2.4 [place] Comment on above: Order Comment: 211-1 Performed By: #### L 500.4050, L100.0500 #### [facility] [address] [place], [address] ALK PHOS 118 U/L High 35-104 [place] Comment on above: Order Comment: 211-1 Performed By: #### L 500.4050, L100.0500 #### [facility] [address] [place], [address] ALT [Catalytic activity/Vol] 14 U/L Normal <=34 [place] Comment on above: Order Comment: 211-1 Performed By: #### L 500.4050, L100.0500 #### [facility] [address] [place], [address] Anion gap [Moles/Vol] 11 mmol/L Normal 5-15 [facility] Comment on above: Order Comment: 211-1 Performed By: #### L 500.4050, L100.0500 #### [facility] [address] [place], [address] AST [Catalytic activity/Vol] 34 U/L High <=31 [place] Comment on above: Order Comment: 211-1 Performed By: #### L 500.4050, L100.0500 #### [facility] [address] [place], [address] Bilirubin [Mass/Vol] 0.21 mg/dL Normal 0.00-1.30 [facility] Comment on above: Order Comment: 211-1 Performed By: #### L 500.4050, L100.0500 #### [facility] [address] [place], [address] BUN/CRE 20.4 RATIO High 10-20 [place] Comment on above: Order Comment: 211-1 Performed By: #### L 500.4050, L100.0500 #### [facility] [address] [place], [address] Calcium [Mass/Vol] 8.9 mg/dL Normal 7.6-11.0 [facility] Comment on above: Order Comment: Performed By: #### L 500.4050, L100.0500 #### [facility] [address] [place], [address] Chloride [Moles/Vol] 105 mmol/L Normal 96-108 [facility] Comment on above: Order Comment: Performed By: #### L 500.4050, L100.0500 #### [facility] [address] [place], [address] CO2 [Moles/Vol] 24.4 mmol/L Normal 22.0-29.0 [place] Comment on above: Order Comment: Performed By: #### L 500.4050, L100.0500 #### [facility] [address] [place], [address] Creatinine [Mass/Vol] 0.6 mg/dL Normal 0.6-1.0 [facility] Comment on above: Order Comment: Performed By: #### L 500.4050, L100.0500 #### [facility] [address] [place], [address] GFR/1.73 sq M.predicted among non-blacks MDRD (S/P/Bld) [Vol rate/Area] 95 mL/min/{1.73_m2} Normal >60 [place] Comment on above: Order Comment: Result Comment: mL/m in/1.73m2 CKD-EPI Creatinine Equation (2020) Performed By: #### L 500.4050, L100.0500 #### [facility] [address] [place], [address] Globulin (S) [Mass/Vol] 2.7 g/dL Normal 2.2-4.2 [facility] Comment on above: Order Comment: - Performed By: #### L 500.4050, L100.0500 #### [facility] [address] [place], [address] Glucose [Mass/Vol] 92 mg/dL Normal 70-99 [facility] Comment on above: Order Comment: - Performed By: #### L 500.4050, L100.0500 #### [facility] [address] [place], [address] Potassium [Moles/Vol] 4.1 mmol/L Normal 3.3-5.1 [facility] Comment on above: Order Comment: - Performed By: #### L 500.4050, L100.0500 #### [facility] [address] [place], [address] Sodium [Moles/Vol] 140 mmol/L Normal 133-145 [facility] Comment on above: Order Comment: - Performed By: #### L 500.4050, L100.0500 #### [facility] [address] [place], [address] T PROT 6.3 g/dL Normal 5.9-8.4 [place] Comment on above: Order Comment: - Performed By: #### L 500.4050, L100.0500 #### [facility] [address] [place], [address] Urea nitrogen [Mass/Vol] 11 mg/dL Normal 4-19 [place] Comment on above: Order Comment: - Performed By: #### L 500.4050, L100.0500 #### [facility] [address] [place], [address] Creatinine [Moles/Vol]Ordere d By: Todd Velasquez on 12-10-2024 Creatinine [Mass/Vol] 0.6 mg/dL 0.6-1.0 [facility] Erythrocyte distribution wid th (RBC) [Ratio]Ordered By: Todd Velasquez on 12-10-2024 Erythrocyte distribution width (RBC) [Entitic vol] 43.0 fL 35.1-43.9 [place] Erythrocyte distribution wid th ratioOrdered By: Todd Velasquez on 12-10-2024 Erythrocyte distribution width (RBC) [Ratio] 13.2 % 11.6-14.6 [place] Erythrocyte distribution wid th standard deviationOrdered By: Todd Velasquez on 12-10-2024 Erythrocyte distribution width (RBC) [Ratio] 43.0 fl 35.1-43.9 [place] GFR/1.73 sq M.predicted miguel g non-blacks MDRD (S/P/Bld) [Vol rate/Area]Ordered By: Todd Velasquez on 12-10-2024 Estimated GFR (MDRD) Non-Af Amer 95 >60 [place] Comment on above: mL/min/1.73m2 CKD-EP I Creatinine Equation (2020) Glomerular filtration rate ( GFR) estimation/1.73 sq m using serum, plasma, or whole bOrdered By: Todd Velasquez on 12-10-2024 GFR/1.73 sq M.predicted among non-blacks MDRD (S/P/Bld) [Vol rate/Area] 95 mL/min/{1.73_m2} >60 [place] Comment on above: mL/min/1.73m2 CKD-EP I Creatinine Equation (2020) Hematocrit Auto (Bld) [Volum e fraction]Ordered By: Todd Velasquez on 12-10-2024 Hematocrit (Bld) [Volume fraction] 31.1 % Low 37-47 [place] Hemoglobin measurementOrdere d By: Todd Velasquez on 12-10-2024 Hemoglobin (Bld) [Mass/Vol] 10.1 g/dL Low 12.0-15.0 [facility] - Chemistry and C hemistry - challengeOrdered By: Todd Velasquez on 12-10-2024 AST [Catalytic activity/Vol] 34 U/L High <32 [place] MCV (mean corpuscular volume ) determinationOrdered By: Todd Velasquez on 12-10-2024 MCV (RBC) [Entitic vol] 89.1 fL 81-99 [facility] Mean corpuscular hemoglobin (MCH) determinationOrdered By: Todd Velasquez on 12-10-2024 MCH (RBC) [Entitic mass] 28.9 pg 27.0-32.0 [place] Mean corpuscular hemoglobin concentration (MCHC) determinationOrdered By: Todd Velasquez on 12-10-2024 MCHC (RBC) [Mass/Vol] 32.5 g/dL 32-36 [facility] Mean platelet volume determi nationOrdered By: Todd Velasquez on 12-10-2024 Platelet mean volume (Bld) [Entitic vol] 11.9 fL 6.2-12.0 [place] Platelet countOrdered By: Whitley on 12-10-2024 Platelets (Bld) [#/Vol] 177 10*3/uL 150-450 [place] RBC Auto (Bld) [#/Vol]Ordere d By: Todd Velasquez on 12-10-2024 RBC (Bld) [#/Vol] 3.49 10*6/uL Low 4.2-5.4 [facility] Serum globulin measurementOr dered By: Todd Velasquez on 12-10-2024 Globulin (S) [Mass/Vol] 2.7 g/dL 2.2-4.2 [facility] Serum glucose measurement (m ass/volume)Ordered By: Todd Velasquez on 12-10-2024 Glucose [Mass/Vol] 92 mg/dL 70-99 [facility] Serum or plasma alanine ignacio otransferase (ALT) measurementOrdered By: Todd Velasquez on 12-10-2024 ALT [Catalytic activity/Vol] 14 U/L <35 [place] Serum or plasma albumin jacob urement (mass/volume)Ordered By: Todd Velasquez on 12-10-2024 Albumin [Mass/Vol] 3.6 g/dL 3.4-4.8 [facility] Serum or plasma albumin/glob ulin mass ratioOrdered By: Todd Velasquez on 12-10-2024 Albumin/Globulin [Mass ratio] 1.3 {ratio} 0.9-2.4 [place] Serum or plasma alkaline phillip sphatase measurementOrdered By: Todd Velasquez on 12-10-2024 ALP [Catalytic activity/Vol] 118 U/L High 35-104 [place] Serum or plasma anion gap de termination (moles/volume)Ordered By: Todd Velasquez on 12-10-2024 Anion gap [Moles/Vol] 11 mmol/L 5-15 [facility] Serum or plasma calcium jacob urement (mass/volume)Ordered By: Todd Velasquez on 12-10-2024 Calcium [Mass/Vol] 8.9 mg/dL 7.6-11.0 [facility] Serum or plasma creatinine m easurement (moles/volume)Ordered By: Todd Velasquez on 12-10-2024 Creatinine [Moles/Vol] 0.6 mg/dL 0.6-1.0 [facility] Serum or plasma potassium me asurementOrdered By: Todd Velasquez on 12-10-2024 Potassium [Moles/Vol] 4.1 mmol/L 3.3-5.1 [facility] Serum or plasma sodium measu rement (moles/volume)Ordered By: Todd Velasquez on 12-10-2024 Sodium [Moles/Vol] 140 mmol/L 133-145 [facility] Serum or plasma urea nitroge n measurement (mass/volume)Ordered By: Todd Velasquez on 12-10-2024 Urea nitrogen [Mass/Vol] 11 mg/dL 4-19 [place] Total proteinOrdered By: Ignacia Velasquez on 12-10-2024 Protein [Mass/Vol] 6.3 g/dL 5.9-8.4 [facility] White blood cell (WBC) count Ordered By: Todd Velasquez on 12-10-2024 WBC (Bld) [#/Vol] 6.6 10*3/uL 4.4-11.0 [facility] 30on 12-08-2024 30 Problem: Knowledge Deficit [...] Interventions Goal: Assess Nutritional Intake Outcome: Completed [facility] 30 Problem: Knowledge Deficit Goal: Patient/family/caregiver demonstrates understanding of disease process, treatment plan, medications, and discharge instructions Outcome: Completed Problem: Potential for Compromised Skin Integrity Goal: Skin Integrity is Maintained or Improved Outcome: Completed Goal: Nutritional status is improving Outcome: Completed Problem: Urinary Incontinence Goal: Perineal skin integrity is maintained or improved Outcome: Completed Problem: Problem Interventions Goal: Assess Nutritional Intake Outcome: Completed [facility] 30 Problem: Knowledge Deficit Goal: Patient/family/caregiver demonstrates understanding of disease process, treatment plan, medications, and discharge instructions Outcome: Progressing Problem: Potential for Compromised Skin Integrity Goal: Skin Integrity is Maintained or Improved Outcome: Progressing Goal: Nutritional status is improving Outcome: Progressing Problem: Urinary Incontinence Goal: Perineal skin integrity is maintained or improved Outcome: Progressing Problem: Problem Interventions Goal: Assess Nutritional Intake Outcome: Progressing [facility] [id number] 12-08-2024 [id number] Next Site of Care Admission Date: 12/03/2024 06:35 PM Patient Name: KATHERYN CHINO Location: [address] [id number] Date of : 1945 -------- Placement Information -------- Referral Type:Shelter/SNF - Return Referral ID:[id number] Provider Name:[employer]. Address 1:[address] [facility] Address 2: City:[place] Selection Factors:Returning to Facility State:[place] [facility] [phone] MAR & Discharge med list transmitted to SNF Return - [facility] via NextPage per TCC request. Electronically signed by NARGIS Mccain [facility] [phone] Transport requested in Roundtrip. Awaiting time confirmation. Confirmed pickup time of 3:00 by transport company [employer] at phone number . Location of facility drop off is [facility]. Facility notified via NextPage, Martine Glasgow notified on secure chat. [facility] [phone] Pt is stable for DC to return to [facility]. [employer] tasked to arrange transport and to send DC notes/MAR to SNF. Transport arranged for 3:00 today. Pt's brother called, Danny [phone], updates given. [facility] BASIC METABOLIC PANELon 02-2 Anion gap [Moles/Vol] 6 mmol/L Normal 3-13 [facility] Comment on above: Performed By: #### L [id number], [id number] #### [employer]: JACKI MANCILLA ([id number]) [facility] [address] [place] [address] Calcium [Mass/Vol] 8.7 mg/dL Low 8.8-10.0 [facility] Comment on above: Performed By: #### Ailyn ARANGO239, [id number] #### [employer] Engineer: JACKI MANCILLA ([id number]) [facility] [address] [place] [address] [place] Chloride [Moles/Vol] 108 mmol/L High 98-107 [facility] Comment on above: Performed By: #### Ailyn ALMEIDA, [id number] #### [employer] Engineer: JACKI MANCILLA ([id number]) [facility] [address] [place] [address] CO2 [Moles/Vol] 26 mmol/L Normal 23-31 [facility] Comment on above: Performed By: #### Ailyn ALMEIDA, [id number] #### [employer]: JACKI MANCILLA ([id number]) [facility] [address] [place] [address] Creatinine [Mass/Vol] 0.64 mg/dL Normal 0.57-1.11 [facility] Comment on above: Performed By: #### Ailyn ALMEIDA, [id number] #### [employer] Engineer: JACKI MANCILLA ([id number]) [facility] ([facility]) [address] [place] [address] GLOMERULAR FILTRATION RATE ML/MIN/1.73 SQ M.PREDICTED >90.0 Normal >60.0 [facility] Comment on above: Result Comment: Calc ulation based on the Chronic Kidney Disease Epidemiology Collaboration (CKD-EPI) equation refit without adjustment for race Performed By: #### L ELLE, [id number] #### [employer] Engineer: JACKI MANCILLA ([id number]) [facility] [address] [place] [address] [place] Glucose [Mass/Vol] 87 mg/dL Normal 82-115 [facility] Comment on above: Performed By: #### L ABPrateek, [id number] #### [employer] Engineer: JACKI MANCILLA ([id number]) [facility] ([facility]) [address] [place] [address] Potassium [Moles/Vol] 3.9 mmol/L Normal 3.5-5.1 [facility] Comment on above: Result Comment: [facility] potassium values may be up to 0.5 mmol/L lower than serum values. Performed By: #### L AB239, [id number] #### [employer] Engineer: JACKI MANCILLA ([id number]) [facility] ([facility]) [address] [place] [address] Sodium [Moles/Vol] 140 mmol/L Normal 136-145 [facility] Comment on above: Performed By: #### Ailyn AB239, [id number] #### [employer] Engineer: JACKI MANCILLA ([id number]) [facility] [address] [place] [address] Urea nitrogen [Mass/Vol] 10 mg/dL Normal 9-23 [facility] Comment on above: Performed By: #### L AB239, [id number] #### [employer] Engineer: JACKI MANCILLA ([id number]) [facility] [address] [place] [address] Bacteria identified Cx Nom ( Bld)on 12-08-2024 Interpretation and review of laboratory results Normal [facility] Blood Collection Sit e: Left Forearm [facility] Blood Collection Sit e: Left Hand [facility] Basic metabolic 1998 panelon 12-08-2024 Anion gap [Moles/Vol] 6 mmol/L 3 - 13 mmol/L [facility] Calcium [Mass/Vol] 8.7 mg/dL Low 8.8 - 10. 0 mg/dL [facility] Chloride [Moles/Vol] 108 mmol/L High 98 - 10 7 mmol/L [facility] CO2 [Moles/Vol] 26 mmol/L 23 - 31 mmol/L [facility] Creatinine [Mass/Vol] 0.64 mg/dL 0.57 - 1.11 mg/dL [facility] GFR/1.73 sq M.predicted (S/P/Bld) [Vol rate/Area] - PINF [facility] Comment on above: Calculation based on the Chronic Kidney Disease Epidemiology Collaboration (CKD-EPI) equation refit without adjustment for race Glucose [Mass/Vol] 87 mg/dL 82 - 115 mg/dL [facility] Interpretation and review of laboratory results Abnormal [facility] Potassium [Moles/Vol] 3.9 mmol/L 3.5 - 5.1 mmol/L [facility] Comment on above: Plasma potassium radha ues may be up to 0.5 mmol/L lower than serum values. Sodium [Moles/Vol] 140 mmol/L 136 - 145 mmol/L [facility] Urea nitrogen [Mass/Vol] 10 mg/dL 9 - 23 mg/dL [facility] CBC W Auto Differential pane l (Bld)on 12-08-2024 Basophils (Bld) [#/Vol] 0 10*3/uL 0.0 - 0.2 10*3/uL [facility] Basophils/100 WBC (Bld) 0.5 % 0.0 - 2.0 % [facility] Eosinophils (Bld) [#/Vol] 0.1 10*3/uL 0.0 - 0.5 10*3/uL [facility] Eosinophils/100 WBC (Bld) 1.5 % 0.0 - 6.0 % [facility] Erythrocyte distribution width (RBC) [Ratio] 13.1 % 11.5 - 15.0 % [facility] Hematocrit (Bld) [Volume fraction] 30.8 % Low 35.0 - 47.0 % [facility] Hemoglobin (Bld) [Mass/Vol] 9.9 g/dL Low 11.7 - 16.0 g/dL [facility] Immature granulocytes (Bld) [#/Vol] 0 10*3/uL NINF - 0.1 10*3/uL [facility] Immature granulocytes/100 WBC (Bld) 0.3 % 0.0 - 2.0 % [facility] Interpretation and review of laboratory results Abnormal [facility] Lymphocytes (Bld) [#/Vol] 2.1 10*3/uL 1.0 - 4.3 10*3/uL [facility] Lymphocytes/100 WBC (Bld) 35.7 % 15.0 - 45.0 % [facility] MCH (RBC) [Entitic mass] 28.7 pg 26. 0 - 34.0 pg [facility] MCHC (RBC) [Mass/Vol] 32.1 % 30.5 - 36.0 % [facility] MCV (RBC) [Entitic vol] 89.3 fL 77.0 - 99.0 fL [facility] Monocytes (Bld) [#/Vol] 0.5 10*3/uL 0.0 - 0.9 10*3/uL [facility] Monocytes/100 WBC (Bld) 9 % 5.0 - 13.0 % [facility] Neutrophils (Bld) [#/Vol] 3.1 10*3/uL 1.8 - 7.5 10*3/uL [facility] Neutrophils/100 WBC (Bld) 53 % 38.0 - 82.0 % [facility] Nucleated RBC/100 WBC (Bld) [Ratio] 0 % [facility] Platelet mean volume (Bld) [Entitic vol] 11.9 fL 9.0 - 12.7 fL [facility] Platelets (Bld) [#/Vol] 165 10*3/uL 140 - 440 10*3/uL [facility] RBC (Bld) [#/Vol] 3.45 10*6/uL Low 3.80 - 5.20 10*6/uL [facility] WBC (Bld) [#/Vol] 5.9 10*3/uL 3.6 - 10.7 10*3/uL [facility] CBC WITH AUTO DIFFERENTIALon 12-08-2024 Basophils (Bld) [#/Vol] 0.0 10*3/uL Normal 0.0-0.2 [facility] Comment on above: Performed By: #### L [id number] ####[employer] Structural Engineer: JACKI MANCILLA ([id number])[address] Basophils/100 WBC (Bld) 0.5 % Normal 0.0-2.0 [facility] Comment on above: Performed By: #### L [id number] ####[employer] Structural Engineer: JACKI MANCILLA ([id number])[address] Eosinophils (Bld) [#/Vol] 0.1 10*3/uL Normal 0.0-0.5 [facility] Comment on above: Performed By: #### L [id number] ####[employer] Engineer: JACKI MANCILLA ([id number])[facility])[address] [place] [address] Eosinophils/100 WBC (Bld) 1.5 % Normal 0.0-6.0 [facility] Comment on above: Performed By: #### L [id number] ####[employer] Engineer: JACKI MANCILLA ([id number])[address] Erythrocyte distribution width (RBC) [Ratio] 13.1 % Normal 11.5-15.0 [facility] Comment on above: Performed By: #### L [id number] ####[employer] Engineer: JACKI MANCILLA ([id number])[address] Hematocrit (Bld) [Volume fraction] 30.8 % Low 35.0-47.0 [facility] Comment on above: Performed By: #### L [id number] ####[employer] Engineer: JACKI MANCILLA ([id number])[address] Hemoglobin (Bld) [Mass/Vol] 9.9 g/dL Low 11.7-16.0 [facility] Comment on above: Performed By: #### L [id number] ####[employer]electric Plant Structural Engineer: JACKI MANCILLA ([id number])[address] IMMATURE GRANS % 0.3 % Normal 0.0-2.0 [facility] Comment on above: Performed By: #### L [id number] ####[employer]electric Plant Structural Engineer: JACKI MANCILLA ([id number])[address] IMMATURE GRANS ABSOLUTE 0.0 10*3/uL Normal <0.1 [facility] Comment on above: Performed By: #### L [id number] ####Hydroelectric Plant Structural Engineer: JACKI MANCILLA ([id number])[facility])[address] [place] [address] Lymphocytes (Bld) [#/Vol] 2.1 10*3/uL Normal 1.0-4.3 [facility] Comment on above: Performed By: #### L [id number] ####[employer]electric Plant Structural Engineer: JACKI MANCILLA ([id number])[facility])[address] [place] [address] Lymphocytes/100 WBC (Bld) 35.7 % Normal 15.0-45.0 [facility] Comment on above: Performed By: #### L [id number] ####[employer]electric Plant Structural Engineer: JACKI MANCILLA ([id number])[facility])[address] [place] [address] MCH (RBC) [Entitic mass] 28.7 pg Normal 26.0-34.0 [facility] Comment on above: Performed By: #### L [id number] ####[employer]electric Plant Structural Engineer: JACKI MANCILLA ([id number])[facility])[address] [place] [address] MCHC 32.1 % Normal 30.5-36.0 [facility] Comment on above: Performed By: #### L [id number] ####[employer]electric Plant Structural Engineer: JACKI MANCILLA ([id number])[facility])[address] [place] [address] MCV (RBC) [Entitic vol] 89.3 fL Normal 77.0-99.0 [facility] Comment on above: Performed By: #### L [id number] ####Hydroelectric Plant Structural Engineer: JACKI MANCILLA ([id number])[facility] ([facility])[address] [place] [address] Monocytes (Bld) [#/Vol] 0.5 10*3/uL Normal 0.0-0.9 [facility] Comment on above: Performed By: #### L [id number] ####Hydroelectric Plant Structural Engineer: JACKI MANCILLA ([id number])[facility])[address] [place] [address] [place] Monocytes/100 WBC (Bld) 9.0 % Normal 5.0-13.0 [facility] Comment on above: Performed By: #### L [id number] ####Hydroelectric Plant Structural Engineer: JACKI MANCILLA ([id number])[facility] ([facility])[address] [place] [address] NEUTROPHILS ABSOLUTE 3.1 10*3/uL Normal 1.8-7.5 [facility] Comment on above: Performed By: #### L [id number] ####[employer]electric Plant Structural Engineer: JACKI MANCILLA ([id number])[facility] ([facility])[address] [place] [address] Neutrophils/100 WBC (Bld) 53.0 % Normal 38.0-82.0 [facility] Comment on above: Performed By: #### L [id number] ####[employer]electric Plant Structural Engineer: JACKI MANCILLA ([id number])[facility] ([facility])[address] [place] [address] NRBC 0.0 /100 WBCs Normal 0.0-2.0 [facility] Comment on above: Performed By: #### L [id number] ####[employer]electric Plant Structural Engineer: JACKI MANCILLA ([id number])[facility] ([facility])[address] [place] [address] Platelet mean volume (Bld) [Entitic vol] 11.9 fL Normal 9.0-12.7 [facility] Comment on above: Performed By: #### L [id number] ####[employer]electric Plant Structural Engineer: JACKI MANCILLA ([id number])[facility] ([facility])[address] [place] [address] Platelets (Bld) [#/Vol] 165 10*3/uL Normal 140-440 [facility] Comment on above: Performed By: #### L [id number] ####[employer]electric Plant Structural Engineer: JACKI MANCILLA ([id number])[facility] ([facility])[address] [place] [address] RBC (Bld) [#/Vol] 3.45 10*6/uL Low 3.80-5.20 [facility] Comment on above: Performed By: #### L [id number] ####Hydroelectric Plant Structural Engineer: JACKI MANCILLA ([id number])[facility] ([facility])[address] [place] [address] WBC (Bld) [#/Vol] 5.9 10*3/uL Normal 3.6-10.7 [facility] Comment on above: Performed By: #### L [id number] ####[employer]electric Plant Structural Engineer: JACKI MANCILLA ([id number])[facility])[address] [place] [address] Laboratory - Microbiology an d Antimicrobial susceptibilityon 12-08-2024 Bacteria identified Cx Nom (Bld) No growth at 5 days [facility] 30on 12-07-2024 30 Problem: Knowledge [...] Goal: Assess Nutritional Intake Outcome: Progressing Normal [facility] BASIC METABOLIC PANELon 11-16 Anion gap [Moles/Vol] 7 mmol/L Normal 3-13 [facility] Comment on above: Performed By: #### L [id number] ####[employer]electric Plant Structural Engineer: JACKI MANCILLA ([id number])[address] Calcium [Mass/Vol] 9.0 mg/dL Normal 8.8-10.0 [facility] Comment on above: Performed By: #### L [id number] ####Hydroelectric Plant Structural Engineer: JACKI MANCILLA ([id number])[facility])[address] [place] [address] Chloride [Moles/Vol] 110 mmol/L High 98-107 [facility] Comment on above: Performed By: #### L [id number] ####Hydroelectric Plant Structural Engineer: JACKI MANCILLA ([id number])[facility])[address] [place] [address] CO2 [Moles/Vol] 25 mmol/L Normal 23-31 [facility] Comment on above: Performed By: #### L [id number] ####Hydroelectric Plant Structural Engineer: JACKI MANCILLA ([id number])[facility])[address] [place] [address] Creatinine [Mass/Vol] 0.64 mg/dL Normal 0.57-1.11 [facility] Comment on above: Performed By: #### L [id number] ####Hydroelectric Plant Structural Engineer: JACKI MANCILLA ([id number])[facility])[address] [place] [address] GLOMERULAR FILTRATION RATE ML/MIN/1.73 SQ M.PREDICTED >90.0 Normal >60.0 [facility] Comment on above: Result Comment: Calc ulation based on the Chronic Kidney Disease Epidemiology Collaboration (CKD-EPI) equation refit without adjustment for race Performed By: #### L [id number] ####[employer]electric Plant Structural Engineer: JACKI MANCILLA ([id number])[facility])[address] [place] [address] Glucose [Mass/Vol] 90 mg/dL Normal 82-115 [facility] Comment on above: Performed By: #### L [id number] ####[employer]electric Plant Structural Engineer: JACKI MANCILLA ([id number])[facility])[address] [place] [address] Potassium [Moles/Vol] 3.9 mmol/L Normal 3.5-5.1 [facility] Comment on above: Result Comment: [facility] potassium values may be up to 0.5 mmol/L lower than serum values. Performed By: #### L [id number] ####[employer]electric Plant Structural Engineer: JACKI MANCILLA ([id number])[facility])[address] [place] [address] Sodium [Moles/Vol] 142 mmol/L Normal 136-145 [facility] Comment on above: Performed By: #### L [id number] ####[employer]electric [employer] Structural Engineer: JACKI MANCILLA ([id number])[facility])[address] [place] [address] Urea nitrogen [Mass/Vol] 12 mg/dL Normal 9-23 [facility] Comment on above: Performed By: #### L [id number] ####[employer]electric Plant Structural Engineer: JACKI MANCILLA ([id number])[facility] ([id number] Basic metabolic 1998 panelon 12-07-2024 Anion gap [Moles/Vol] 7 mmol/L 3 - 13 mmol/L [facility] Calcium [Mass/Vol] 9 mg/dL 8.8 - 10. 0 mg/dL [facility] Chloride [Moles/Vol] 110 mmol/L High 98 - 10 7 mmol/L [facility] CO2 [Moles/Vol] 25 mmol/L 23 - 31 mmol/L [facility] Creatinine [Mass/Vol] 0.64 mg/dL 0.57 - 1.11 mg/dL [facility] GFR/1.73 sq M.predicted (S/P/Bld) [Vol rate/Area] - PINF [facility] Comment on above: Calculation based on the Chronic Kidney Disease Epidemiology Collaboration (CKD-EPI) equation refit without adjustment for race Glucose [Mass/Vol] 90 mg/dL 82 - 115 mg/dL [facility] Interpretation and review of laboratory results Abnormal [facility] Potassium [Moles/Vol] 3.9 mmol/L 3.5 - 5.1 mmol/L [facility] Comment on above: Plasma potassium radha ues may be up to 0.5 mmol/L lower than serum values. Sodium [Moles/Vol] 142 mmol/L 136 - 145 mmol/L [facility] Urea nitrogen [Mass/Vol] 12 mg/dL 9 - 23 mg/dL [facility] CBC W Auto Differential pane l (Bld)on 12-07-2024 Basophils (Bld) [#/Vol] 0 10*3/uL 0.0 - 0.2 10*3/uL [facility] Basophils/100 WBC (Bld) 0.5 % 0.0 - 2.0 % [facility] Eosinophils (Bld) [#/Vol] 0.1 10*3/uL 0.0 - 0.5 10*3/uL [facility] Eosinophils/100 WBC (Bld) 1.2 % 0.0 - 6.0 % [facility] Erythrocyte distribution width (RBC) [Ratio] 13.2 % 11.5 - 15.0 % [facility] Hematocrit (Bld) [Volume fraction] 32.1 % Low 35.0 - 47.0 % [facility] Hemoglobin (Bld) [Mass/Vol] 10.4 g/dL Low 11.7 - 16.0 g/dL [facility] Immature granulocytes (Bld) [#/Vol] 0 10*3/uL NINF - 0.1 10*3/uL [facility] Immature granulocytes/100 WBC (Bld) 0.2 % 0.0 - 2.0 % [facility] Interpretation and review of laboratory results Abnormal [facility] Lymphocytes (Bld) [#/Vol] 2.1 10*3/uL 1.0 - 4.3 10*3/uL [facility] Lymphocytes/100 WBC (Bld) 35 % 15.0 - 45.0 % [facility] MCH (RBC) [Entitic mass] 28.1 pg 26. 0 - 34.0 pg [facility] MCHC (RBC) [Mass/Vol] 32.4 % 30.5 - 36.0 % [facility] MCV (RBC) [Entitic vol] 86.8 fL 77.0 - 99.0 fL [facility] Monocytes (Bld) [#/Vol] 0.6 10*3/uL 0.0 - 0.9 10*3/uL [facility] Monocytes/100 WBC (Bld) 10.1 % 5.0 - 13.0 % [facility] Neutrophils (Bld) [#/Vol] 3.2 10*3/uL 1.8 - 7.5 10*3/uL [facility] Neutrophils/100 WBC (Bld) 53 % 38.0 - 82.0 % [facility] Nucleated RBC/100 WBC (Bld) [Ratio] 0 % [facility] Platelet mean volume (Bld) [Entitic vol] 11.5 fL 9.0 - 12.7 fL [facility] Platelets (Bld) [#/Vol] 169 10*3/uL 140 - 440 10*3/uL [facility] RBC (Bld) [#/Vol] 3.7 10*6/uL Low 3.80 - 5.20 10*6/uL [facility] WBC (Bld) [#/Vol] 6.1 10*3/uL 3.6 - 10.7 10*3/uL [facility] CBC WITH AUTO DIFFERENTIALon 12-07-2024 Basophils (Bld) [#/Vol] 0.0 10*3/uL Normal 0.0-0.2 [facility] Comment on above: Performed By: #### L [id number] ####Hydroelectric Plant Structural Engineer: JACKI MANCILLA ([id number])[facility] ([facility])[address] [place] [address] Basophils/100 WBC (Bld) 0.5 % Normal 0.0-2.0 [facility] Comment on above: Performed By: #### L [id number] ####Hydroelectric Plant Structural Engineer: JACKI MANCILLA ([id number])[facility])[address] [place] [address] Eosinophils (Bld) [#/Vol] 0.1 10*3/uL Normal 0.0-0.5 [facility] Comment on above: Performed By: #### L [id number] ####Hydroelectric Plant Structural Engineer: JACKI MANCILLA ([id number])[facility] ([facility])[address] [place] [address] Eosinophils/100 WBC (Bld) 1.2 % Normal 0.0-6.0 [facility] Comment on above: Performed By: #### L [id number] ####Hydroelectric Plant Structural Engineer: JACKI MANCILLA ([id number])[facility])[address] [place] [address] Erythrocyte distribution width (RBC) [Ratio] 13.2 % Normal 11.5-15.0 [facility] Comment on above: Performed By: #### L [id number] ####Hydroelectric Plant Structural Engineer: JACKI MANCILLA ([id number])[facility] ([facility])[address] [place] [address] Hematocrit (Bld) [Volume fraction] 32.1 % Low 35.0-47.0 [facility] Comment on above: Performed By: #### L [id number] ####Hydroelectric Plant Structural Engineer: JACKI MANCILLA ([id number])[facility])[address] [place] [address] Hemoglobin (Bld) [Mass/Vol] 10.4 g/dL Low 11.7-16.0 [facility] Comment on above: Performed By: #### L [id number] ####[employer]electric Plant Structural Engineer: JACKI MANCILLA ([id number])[facility])[address] [place] [address] IMMATURE GRANS % 0.2 % Normal 0.0-2.0 [facility] Comment on above: Performed By: #### L [id number] ####[employer]electric Plant Structural Engineer: JACKI MANCILLA ([id number])[address] IMMATURE GRANS ABSOLUTE 0.0 10*3/uL Normal <0.1 [facility] Comment on above: Performed By: #### L [id number] ####[employer]electric Plant Structural Engineer: JACKI MANCILLA ([id number])[address] Lymphocytes (Bld) [#/Vol] 2.1 10*3/uL Normal 1.0-4.3 [facility] Comment on above: Performed By: #### L [id number] ####[employer]electric Plant Structural Engineer: JACKI MANCILLA ([id number])[address] Lymphocytes/100 WBC (Bld) 35.0 % Normal 15.0-45.0 [facility] Comment on above: Performed By: #### L [id number] ####[employer]electric Plant Structural Engineer: JACKI MANCILLA ([id number])[address] MCH (RBC) [Entitic mass] 28.1 pg Normal 26.0-34.0 [facility] Comment on above: Performed By: #### L [id number] ####[employer]electric Plant Structural Engineer: JACKI MANCILLA ([id number])[address] MCHC 32.4 % Normal 30.5-36.0 [facility] Comment on above: Performed By: #### L [id number] ####Hydroelectric Plant Structural Engineer: JACKI MANCILLA ([id number])[facility] ([facility])[address] [place] [address] MCV (RBC) [Entitic vol] 86.8 fL Normal 77.0-99.0 [facility] Comment on above: Performed By: #### L [id number] ####Hydroelectric Plant Structural Engineer: JACKI MANCILLA ([id number])[facility] ([facility])[address] [place] [address] Monocytes (Bld) [#/Vol] 0.6 10*3/uL Normal 0.0-0.9 [facility] Comment on above: Performed By: #### L [id number] ####[employer]electric Plant Structural Engineer: JACKI MANCILLA ([id number])[facility] ([facility])[address] [place] [address] Monocytes/100 WBC (Bld) 10.1 % Normal 5.0-13.0 [facility] Comment on above: Performed By: #### L [id number] ####[employer]electric Plant Structural Engineer: JACKI MANCILLA ([id number])[facility] ([facility])[address] [place] [address] NEUTROPHILS ABSOLUTE 3.2 10*3/uL Normal 1.8-7.5 [facility] Comment on above: Performed By: #### L [id number] ####[employer]electric Plant Structural Engineer: JACKI MANCILLA ([id number])[facility] ([facility])[address] [place] [address] Neutrophils/100 WBC (Bld) 53.0 % Normal 38.0-82.0 [facility] Comment on above: Performed By: #### L [id number] ####[employer]electric [employer] Structural Engineer: JACKI MANCILLA ([phone])[facility])[address] [place] [address] NRBC 0.0 /100 WBCs Normal 0.0-2.0 [facility] Comment on above: Performed By: #### L [id number] ####[employer]electric Plant Structural Engineer: JACKI MANCILLA ([id number])[facility] ([facility])[address] [place] [address] Platelet mean volume (Bld) [Entitic vol] 11.5 fL Normal 9.0-12.7 [facility] Comment on above: Performed By: #### L [id number] ####[employer]electric [employer] Structural Engineer: JACKI MANCILLA ([id number])[facility])[address] [place] [address] Platelets (Bld) [#/Vol] 169 10*3/uL Normal 140-440 [facility] Comment on above: Performed By: #### L [id number] ####[employer]electric [employer] Structural Engineer: JACKI MANCILLA ([id number])[facility] ([facility])[address] [place] [address] RBC (Bld) [#/Vol] 3.70 10*6/uL Low 3.80-5.20 [facility] Comment on above: Performed By: #### L [id number] ####[employer]electric Plant Structural Engineer: JACKI MANCILLA ([id number])[facility] ([facility])[address] [place] [address] WBC (Bld) [#/Vol] 6.1 10*3/uL Normal 3.6-10.7 [facility] Comment on above: Performed By: #### L [id number] ####[employer]electric [employer] Structural Engineer: JACKI MANCILLA ([id number])[facility])[address] [place] [address] 30on 12-06-2024 30 Problem: Knowledge Deficit Goal: [...] Perineal skin integrity is maintained or improved 12/06/2024 0515 by Maria Victoria Zapata RN Outcome: Progressing 12/06/202417 by Maria Victoria Zapata RN Outcome: Progressing Normal [facility] 30 Problem: Knowledge Deficit Goal: Patient/family/caregiver demonstrates understanding of disease process, treatment plan, medications, and discharge instructions Outcome: Progressing Problem: Potential for Compromised Skin Integrity Goal: Skin Integrity is Maintained or Improved Outcome: Progressing Goal: Nutritional status is improving Outcome: Progressing Problem: Urinary Incontinence Goal: Perineal skin integrity is maintained or improved Outcome: Progressing Normal [facility] BASIC METABOLIC PANELon 11-16 Anion gap [Moles/Vol] 7 mmol/L Normal 3-13 [facility] Comment on above: Performed By: #### L [id number] ####[employer]electric [employer] Structural Engineer: JACKI MANCILLA ([phone])[address] Calcium [Mass/Vol] 8.8 mg/dL Normal 8.8-10.0 [facility] Comment on above: Performed By: #### L AB15 ####[employer]electric [employer] Structural Engineer: JACKI MANCILLA ([id number])[facility])[address] [place] [address] Chloride [Moles/Vol] 110 mmol/L High 98-107 [facility] Comment on above: Performed By: #### L AB15 ####[employer]electric [employer] Structural Engineer: JACKI MANCILLA ([id number])[address] CO2 [Moles/Vol] 24 mmol/L Normal 23-31 [facility] Comment on above: Performed By: #### L AB15 ####[employer]electric [employer] Structural Engineer: JACKI MANCILLA ([id number])[address] Creatinine [Mass/Vol] 0.64 mg/dL Normal 0.57-1.11 [facility] Comment on above: Performed By: #### L AB15 ####[employer]electric [employer] Structural Engineer: JACKI MANCILLA ([id number])[facility])[address] [place] [address] GLOMERULAR FILTRATION RATE ML/MIN/1.73 SQ M.PREDICTED >90.0 Normal >60.0 [facility] Comment on above: Result Comment: Calc ulation based on the Chronic Kidney Disease Epidemiology Collaboration (CKD-EPI) equation refit without adjustment for race Performed By: #### L AB15 ####[employer]electric [employer] Structural Engineer: JACKI MANCILLA ([id number])[facility])[address] [place] [address] Glucose [Mass/Vol] 87 mg/dL Normal 82-115 [facility] Comment on above: Performed By: #### L AB15 ####[employer]electric [employer] Structural Engineer: JACKI MANCILLA ([id number])[address] Potassium [Moles/Vol] 3.7 mmol/L Normal 3.5-5.1 [facility] Comment on above: Result Comment: [facility] potassium values may be up to 0.5 mmol/L lower than serum values. Performed By: #### L AB15 ####[employer]electric [employer] Structural Engineer: JACKI MANCILLA ([phone])[facility])[address] [place] [address] Sodium [Moles/Vol] 141 mmol/L Normal 136-145 [facility] Comment on above: Performed By: #### L AB15 ####[employer]electric [employer] Structural Engineer: JACKI MANCILLA ([id number])[address] Urea nitrogen [Mass/Vol] 12 mg/dL Normal 9-23 [facility] Comment on above: Performed By: #### L AB15 ####[employer] Structural Engineer: JACKI MANCILLA ([id number])[address] Bacteria identified Cx Nom ( U)Ordered By: Emily Ocampo on 12-06-2024 Interpretation and review of laboratory results Abnormal [facility] Basic metabolic 1998 panelon 02-22-2025 Anion gap [Moles/Vol] 7 mmol/L 3 - 13 mmol/L [facility] Calcium [Mass/Vol] 8.8 mg/dL 8.8 - 10. 0 mg/dL [facility] Chloride [Moles/Vol] 110 mmol/L High 98 - 10 7 mmol/L [facility] CO2 [Moles/Vol] 24 mmol/L 23 - 31 mmol/L [facility] Creatinine [Mass/Vol] 0.64 mg/dL 0.57 - 1.11 mg/dL [facility] GFR/1.73 sq M.predicted (S/P/Bld) [Vol rate/Area] - PINF [facility] Comment on above: Calculation based on the Chronic Kidney Disease Epidemiology Collaboration (CKD-EPI) equation refit without adjustment for race Glucose [Mass/Vol] 87 mg/dL 82 - 115 mg/dL [facility] Interpretation and review of laboratory results Abnormal [facility] Potassium [Moles/Vol] 3.7 mmol/L 3.5 - 5.1 mmol/L [facility] Comment on above: Plasma potassium radha ues may be up to 0.5 mmol/L lower than serum values. Sodium [Moles/Vol] 141 mmol/L 136 - 145 mmol/L [facility] Urea nitrogen [Mass/Vol] 12 mg/dL 9 - 23 mg/dL [facility] CBC W Auto Differential pane l (Bld)on 12-06-2024 Basophils (Bld) [#/Vol] 0 10*3/uL 0.0 - 0.2 10*3/uL [facility] Basophils/100 WBC (Bld) 0.6 % 0.0 - 2.0 % [facility] Eosinophils (Bld) [#/Vol] 0 10*3/uL 0.0 - 0.5 10*3/uL [facility] Eosinophils/100 WBC (Bld) 0.6 % 0.0 - 6.0 % [facility] Erythrocyte distribution width (RBC) [Ratio] 13 % 11.5 - 15.0 % [facility] Hematocrit (Bld) [Volume fraction] 33 % Low 35.0 - 47.0 % [facility] Hemoglobin (Bld) [Mass/Vol] 10.5 g/dL Low 11.7 - 16.0 g/dL [facility] Immature granulocytes (Bld) [#/Vol] 0 10*3/uL [facility] - 0.1 10*3/uL [facility] Immature granulocytes/100 WBC (Bld) 0.2 % 0.0 - 2.0 % [facility] Interpretation and review of laboratory results Abnormal [facility] Lymphocytes (Bld) [#/Vol] 2 10*3/uL 1.0 - 4.3 10*3/uL [facility] Lymphocytes/100 WBC (Bld) 37 % 15.0 - 45.0 % [facility] MCH (RBC) [Entitic mass] 28.7 pg 26. 0 - 34.0 pg [facility] MCHC (RBC) [Mass/Vol] 31.8 % 30.5 - 36.0 % [facility] MCV (RBC) [Entitic vol] 90.2 fL 77.0 - 99.0 fL [facility] Monocytes (Bld) [#/Vol] 0.6 10*3/uL 0.0 - 0.9 10*3/uL [facility] Monocytes/100 WBC (Bld) 11 % 5.0 - 13.0 % [facility] Neutrophils (Bld) [#/Vol] 2.7 10*3/uL 1.8 - 7.5 10*3/uL [facility] Neutrophils/100 WBC (Bld) 50.6 % 38.0 - 82.0 % [facility] Nucleated RBC/100 WBC (Bld) [Ratio] 0 % [facility] Platelet mean volume (Bld) [Entitic vol] 11.7 fL 9.0 - 12.7 fL [facility] Platelets (Bld) [#/Vol] 158 10*3/uL 140 - 440 10*3/uL [facility] RBC (Bld) [#/Vol] 3.66 10*6/uL Low 3.80 - 5.20 10*6/uL [facility] WBC (Bld) [#/Vol] 5.3 10*3/uL 3.6 - 10.7 10*3/uL [facility] CBC WITH AUTO DIFFERENTIALon 12-06-2024 Basophils (Bld) [#/Vol] 0.0 10*3/uL Normal 0.0-0.2 [facility] Comment on above: Performed By: #### L [id number], [id number] #### Hydroelectric Plant Structural Engineer: JACKI MANCILLA ([id number]) [facility] ([facility]) [address] [place] [address] Basophils/100 WBC (Bld) 0.6 % Normal 0.0-2.0 [facility] Comment on above: Performed By: #### L AB239, [id number] #### Hydroelectric Plant Structural Engineer: JACKI MANCILLA ([id number]) [facility] ([facility]) [address] [place] [address] Eosinophils (Bld) [#/Vol] 0.0 10*3/uL Normal 0.0-0.5 [facility] Comment on above: Performed By: #### L AB239, [id number] #### Hydroelectric Plant Structural Engineer: JACKI MANCILLA ([id number]) [facility] ([facility]) [address] [place] [address] Eosinophils/100 WBC (Bld) 0.6 % Normal 0.0-6.0 [facility] Comment on above: Performed By: #### Ailyn AB239, [id number] #### Hydroelectric Plant Structural Engineer: JACKI MANCILLA ([id number]) [facility] ([facility]) [address] [place] [address] Erythrocyte distribution width (RBC) [Ratio] 13.0 % Normal 11.5-15.0 [facility] Comment on above: Performed By: #### L AB239, [id number] #### Hydroelectric Plant Structural Engineer: JACKI MANCILLA ([id number]) [facility]) [address] [place] [address] Hematocrit (Bld) [Volume fraction] 33.0 % Low 35.0-47.0 [facility] Comment on above: Performed By: #### L AB239, [id number] #### Hydroelectric Plant Structural Engineer: JACKI MANCILLA ([id number]) [facility]) [address] [place] [address] Hemoglobin (Bld) [Mass/Vol] 10.5 g/dL Low 11.7-16.0 [facility] Comment on above: Performed By: #### L AB239, [id number] #### Hydroelectric Plant Structural Engineer: JACKI [id number]) [facility] ([facility]) [address] [place] [address] IMMATURE GRANS % 0.2 % Normal 0.0-2.0 [facility] Comment on above: Performed By: #### L AB239, [id number] #### Hydroelectric Plant Structural Engineer: JACKI MANCILLA ([id number]) [facility] ([facility]) [address] [place] [address] IMMATURE GRANS ABSOLUTE 0.0 10*3/uL Normal <0.1 [facility] Comment on above: Performed By: #### L AB239, [id number] #### Hydroelectric Plant Structural Engineer: JACKI MANCILLA ([id number]) [facility] ([facility]) [address] [place] [address] Lymphocytes (Bld) [#/Vol] 2.0 10*3/uL Normal 1.0-4.3 [facility] Comment on above: Performed By: #### Ailyn AB239, [id number] #### Hydroelectric Plant Structural Engineer: JACKI MANCILLA ([id number]) [facility] ([facility]) [address] [place] [address] Lymphocytes/100 WBC (Bld) 37.0 % Normal 15.0-45.0 [facility] Comment on above: Performed By: #### L AB239, [id number] #### Hydroelectric Plant Structural Engineer: JACKI MANCILLA ([id number]) [facility]) [address] [place] [address] MCH (RBC) [Entitic mass] 28.7 pg Normal 26.0-34.0 [facility] Comment on above: Performed By: #### L AB239, [id number] #### Hydroelectric Plant Structural Engineer: JACKI MANCILLA ([id number]) [facility]) [address] [place] [address] MCHC 31.8 % Normal 30.5-36.0 [facility] Comment on above: Performed By: #### L AB239, [id number] #### Hydroelectric Plant Structural Engineer: JACKI MANCILLA ([id number]) [facility]) [address] [place] [address] MCV (RBC) [Entitic vol] 90.2 fL Normal 77.0-99.0 [facility] Comment on above: Performed By: #### L AB239, [id number] #### Hydroelectric Plant Structural Engineer: JACKI MANCILLA ([id number]) [facility] ([facility]) [address] [place] [address] Monocytes (Bld) [#/Vol] 0.6 10*3/uL Normal 0.0-0.9 [facility] Comment on above: Performed By: #### L AB239, [id number] #### Hydroelectric Plant Structural Engineer: JACKI MANCILLA ([id number]) [facility] ([facility]) [address] [place] [address] Monocytes/100 WBC (Bld) 11.0 % Normal 5.0-13.0 [facility] Comment on above: Performed By: #### Ailyn AB239, [id number] #### Hydroelectric Plant Structural Engineer: JACKI MANCILAL ([id number]) [facility] ([facility]) [address] [place] [address] NEUTROPHILS ABSOLUTE 2.7 10*3/uL Normal 1.8-7.5 [facility] Comment on above: Performed By: #### Ailyn AB239, [id number] #### Hydroelectric Plant Structural Engineer: JACKI MANCILLA ([id number]) [facility] ([facility]) [address] [place] [address] Neutrophils/100 WBC (Bld) 50.6 % Normal 38.0-82.0 [facility] Comment on above: Performed By: #### L AB239, [id number] #### Hydroelectric Plant Structural Engineer: JACKI MANCILLA ([id number]) [facility] ([facility]) [address] [place] [address] NRBC 0.0 /100 WBCs Normal 0.0-2.0 [facility] Comment on above: Performed By: #### L AB239, [id number] #### Hydroelectric Plant Structural Engineer: JACKI MANCILLA ([id number]) [facility] ([facility]) [address] [place] [address] Platelet mean volume (Bld) [Entitic vol] 11.7 fL Normal 9.0-12.7 [facility] Comment on above: Performed By: #### Ailyn AB239, [id number] #### Hydroelectric Plant Structural Engineer: JACKI MANCILLA ([id number]) [facility]) [address] [place] [address] Platelets (Bld) [#/Vol] 158 10*3/uL Normal 140-440 [facility] Comment on above: Performed By: #### Ailyn ARANGO239, [id number] #### Hydroelectric Plant Structural Engineer: JACKI MANCILLA ([id number]) [facility]) [address] [place] [address] RBC (Bld) [#/Vol] 3.66 10*6/uL Low 3.80-5.20 [facility] Comment on above: Performed By: #### Ailyn ARANGO239, [id number] #### Hydroelectric Plant Structural Engineer: JACKI MANCILLA ([id number]) [facility]) [address] [place] [address] WBC (Bld) [#/Vol] 5.3 10*3/uL Normal 3.6-10.7 [facility] Comment on above: Performed By: #### Ailyn ALMEIDA, [id number] #### Hydroelectric Plant Structural Engineer: JACKI MANCILLA ([id number]) [facility] ([facility]) [address] [place] [address] Laboratory - Drug toxicology on 12-06-2024 Valproate [Mass/Vol] 20.4 ug/mL Low 50.0 - 100.0 mg/L [facility] Comment on above: Test Performed by Reji Chapin, [facility], [address] [place] [address] Jorge L Guerrero M.D., Ph.D., Director of Laboratories , [place] [id number] Valproate Free [Mass/Vol] <4.0 Low 4.8 - 17.3 mg/L [facility] Comment on above: Note: Non-linear drug binding properties result in the fraction of Free Valproic Acid increasing as total drug increases. The free fraction may range from 5% to 25% for the total drug range of 30-160 mg/L. Laboratory - Microbiology an d Antimicrobial susceptibilityOrdered By: Emily Ocampo on 12-06-2024 Bacteria identified Cx Nom (U) Normal urogenital devyn present [facility] Bacteria identified Cx Nom (U) >100,000 CFU/mL Escherichia coli Abnormal [facility] Bacteria identified Cx Nom (U) >100,000 CFU/mL Aerococcus urinae Abnormal [facility] Comment on above: Susceptibility testi ng not routinely performed except on isolates from blood culture. Aerococcus species are generally susceptible to beta-lactams. Resistance to sulfonamides is common in Aerococcus urinae. Providers should call the [facility] obiology Laboratory ([phone]) within 3 days if susceptibility testing is required. No Panel Informationon 12-06 Interpretation and review of laboratory results Abnormal [facility] 30on 12-05-2024 30 Problem: Knowledge Deficit Goal: Patient/family/caregiver demonstrates understanding of disease process, treatment plan, medications, and discharge instructions Outcome: Progressing Problem: Potential for Compromised Skin Integrity Goal: Skin Integrity is Maintained or Improved Outcome: Progressing Goal: Nutritional status is improving Outcome: Progressing Problem: Urinary Incontinence Goal: Perineal skin integrity is maintained or improved Outcome: Progressing Normal [facility] [id number] 12-05-2024 [id number] Pt adm from [facility] SNF/LTC, with Sepsis 2nd to UTI. Plan is to return. Facility will adm pt back skilled under Medicare. Called pt's brother Danny, was called and updated. CM to follow. Normal [facility] BASIC METABOLIC PANELon 11-16 Anion gap [Moles/Vol] 9 mmol/L Normal 3-13 [facility] Comment on above: Performed By: #### L AB15 #### Hydroelectric Plant Structural Engineer: JACKI MANCILLA ([id number]) [facility] [address] [place] [address] Calcium [Mass/Vol] 8.2 mg/dL Low 8.8-10.0 [facility] Comment on above: Performed By: #### L AB15 #### Hydroelectric Plant Structural Engineer: JACKI MANCILLA ([id number]) [facility] ([facility]) [address] [place] [address] Chloride [Moles/Vol] 110 mmol/L High 98-107 [facility] Comment on above: Performed By: #### L AB15 #### Hydroelectric Plant Structural Engineer: JACKI MANCILLA ([id number]) [facility]) [address] [place] [address] [place] CO2 [Moles/Vol] 22 mmol/L Low 23-31 [facility] Comment on above: Performed By: #### L AB15 #### Hydroelectric Plant Structural Engineer: JACKI MANCILLA ([id number]) [facility]) [address] [place] [address] Creatinine [Mass/Vol] 0.68 mg/dL Normal 0.57-1.11 [facility] Comment on above: Performed By: #### L AB15 #### Hydroelectric Plant Structural Engineer: JACKI MANCILLA ([id number]) [facility]) [address] [place] [address] GLOMERULAR FILTRATION RATE ML/MIN/1.73 SQ M.PREDICTED 89.8 mL/min/1.73m*2 Normal >60.0 [facility] Comment on above: Result Comment: Calc ulation based on the Chronic Kidney Disease Epidemiology Collaboration (CKD-EPI) equation refit without adjustment for race Performed By: #### L AB15 #### Hydroelectric Plant Structural Engineer: JACKI MANCILLA ([id number]) [facility]) [address] [place] [address] Glucose [Mass/Vol] 86 mg/dL Normal 82-115 [facility] Comment on above: Performed By: #### L AB15 #### Hydroelectric Plant Structural Engineer: JACKI MANCILLA ([id number]) [facility]) [address] [place] [address] Potassium [Moles/Vol] 3.8 mmol/L Normal 3.5-5.1 [facility] Comment on above: Result Comment: [facility] potassium values may be up to 0.5 mmol/L lower than serum values. Performed By: #### L AB15 #### Hydroelectric Plant Structural Engineer: JACKI MANCILLA ([id number]) [facility] ([facility]) [address] [place] [address] Sodium [Moles/Vol] 141 mmol/L Normal 136-145 [facility] Comment on above: Performed By: #### L AB15 #### Hydroelectric Plant Structural Engineer: JACKI MANCILLA ([id number]) [facility] ([facility]) [address] [place] [address] Urea nitrogen [Mass/Vol] 13 mg/dL Normal 9-23 [facility] Comment on above: Performed By: #### L AB15 #### Hydroelectric Plant Structural Engineer: JACKI MANCILLA ([id number]) [facility] ([facility]) [address] [place] [address] Basic metabolic 1998 panelon 12-05-2024 Anion gap [Moles/Vol] 9 mmol/L 3 - 13 mmol/L [facility] Calcium [Mass/Vol] 8.2 mg/dL Low 8.8 - 10. 0 mg/dL [facility] Chloride [Moles/Vol] 110 mmol/L High 98 - 10 7 mmol/L [facility] CO2 [Moles/Vol] 22 mmol/L Low 23 - 31 mmol/L [facility] Creatinine [Mass/Vol] 0.68 mg/dL 0.57 - 1.11 mg/dL [facility] GFR/1.73 sq M.predicted (S/P/Bld) [Vol rate/Area] 89.8 mL/min - PINF [facility] Comment on above: Calculation based on the Chronic Kidney Disease Epidemiology Collaboration (CKD-EPI) equation refit without adjustment for race Glucose [Mass/Vol] 86 mg/dL 82 - 115 mg/dL [facility] Interpretation and review of laboratory results Abnormal [facility] Potassium [Moles/Vol] 3.8 mmol/L 3.5 - 5.1 mmol/L [facility] Comment on above: Plasma potassium radha ues may be up to 0.5 mmol/L lower than serum values. Sodium [Moles/Vol] 141 mmol/L 136 - 145 mmol/L [facility] Urea nitrogen [Mass/Vol] 13 mg/dL 9 - 23 mg/dL [facility] CBC W Auto Differential pane l (Bld)on 12-05-2024 Basophils (Bld) [#/Vol] 0 10*3/uL 0.0 - 0.2 10*3/uL [facility] Basophils/100 WBC (Bld) 0.6 % 0.0 - 2.0 % [facility] Eosinophils (Bld) [#/Vol] 0 10*3/uL 0.0 - 0.5 10*3/uL [facility] Eosinophils/100 WBC (Bld) 0.5 % 0.0 - 6.0 % [facility] Erythrocyte distribution width (RBC) [Ratio] 13.3 % 11.5 - 15.0 % [facility] Hematocrit (Bld) [Volume fraction] 30.4 % Low 35.0 - 47.0 % [facility] Hemoglobin (Bld) [Mass/Vol] 9.6 g/dL Low 11.7 - 16.0 g/dL [facility] Immature granulocytes (Bld) [#/Vol] 0 10*3/uL NINF - 0.1 10*3/uL [facility] Immature granulocytes/100 WBC (Bld) 0.3 % 0.0 - 2.0 % [facility] Interpretation and review of laboratory results Abnormal [facility] Lymphocytes (Bld) [#/Vol] 2 10*3/uL 1.0 - 4.3 10*3/uL [facility] Lymphocytes/100 WBC (Bld) 32.3 % 15.0 - 45.0 % [facility] MCH (RBC) [Entitic mass] 28.5 pg 26. 0 - 34.0 pg [facility] MCHC (RBC) [Mass/Vol] 31.6 % 30.5 - 36.0 % [facility] MCV (RBC) [Entitic vol] 90.2 fL 77.0 - 99.0 fL [facility] Monocytes (Bld) [#/Vol] 0.8 10*3/uL 0.0 - 0.9 10*3/uL [facility] Monocytes/100 WBC (Bld) 12.8 % 5.0 - 13.0 % [facility] Neutrophils (Bld) [#/Vol] 3.3 10*3/uL 1.8 - 7.5 10*3/uL [facility] Neutrophils/100 WBC (Bld) 53.5 % 38.0 - 82.0 % [facility] Nucleated RBC/100 WBC (Bld) [Ratio] 0 % [facility] Platelet mean volume (Bld) [Entitic vol] 11.7 fL 9.0 - 12.7 fL [facility] Platelets (Bld) [#/Vol] 148 10*3/uL 140 - 440 10*3/uL [facility] RBC (Bld) [#/Vol] 3.37 10*6/uL Low 3.80 - 5.20 10*6/uL [facility] WBC (Bld) [#/Vol] 6.2 10*3/uL 3.6 - 10.7 10*3/uL [facility] CBC WITH AUTO DIFFERENTIALon 12-05-2024 Basophils (Bld) [#/Vol] 0.0 10*3/uL Normal 0.0-0.2 [facility] Comment on above: Performed By: #### L [id number] ####Hydroelectric Plant Structural Engineer: JACKI MANCILLA ([id number])[facility])[address] [place] [address] Basophils/100 WBC (Bld) 0.6 % Normal 0.0-2.0 [facility] Comment on above: Performed By: #### L [id number] ####Hydroelectric Plant Structural Engineer: JACKI MANCILLA ([phone])[facility])[address] [place] [address] Eosinophils (Bld) [#/Vol] 0.0 10*3/uL Normal 0.0-0.5 [facility] Comment on above: Performed By: #### L [id number] ####Hydroelectric Plant Structural Engineer: JACKI MANCILLA ([id number])[facility])[address] [place] [address] Eosinophils/100 WBC (Bld) 0.5 % Normal 0.0-6.0 [facility] Comment on above: Performed By: #### L [id number] ####Hydroelectric Plant Structural Engineer: JACKI MANCILLA ([id number])[facility])[address] [place] [address] Erythrocyte distribution width (RBC) [Ratio] 13.3 % Normal 11.5-15.0 [facility] Comment on above: Performed By: #### L [id number] ####Hydroelectric Plant Structural Engineer: JACKI MANCILLA ([id number])[facility])[address] [place] [address] Hematocrit (Bld) [Volume fraction] 30.4 % Low 35.0-47.0 [facility] Comment on above: Performed By: #### L [id number] ####Hydroelectric Plant Structural Engineer: JACKI MANCILLA ([id number])[facility])[address] [place] [address] Hemoglobin (Bld) [Mass/Vol] 9.6 g/dL Low 11.7-16.0 [facility] Comment on above: Performed By: #### L [id number] ####Hydroelectric Plant Structural Engineer: JACKI MANCILLA ([id number])[address] IMMATURE GRANS % 0.3 % Normal 0.0-2.0 [facility] Comment on above: Performed By: #### L [id number] ####Hydroelectric Plant Structural Engineer: JACKI MANCILLA ([id number])[address] IMMATURE GRANS ABSOLUTE 0.0 10*3/uL Normal <0.1 [facility] Comment on above: Performed By: #### L [id number] ####Hydroelectric Plant Structural Engineer: JACKI MANCILLA ([id number])[facility])[address] [place] [address] Lymphocytes (Bld) [#/Vol] 2.0 10*3/uL Normal 1.0-4.3 [facility] Comment on above: Performed By: #### L [id number] ####Hydroelectric Plant Structural Engineer: JACKI MANCILLA ([phone])[facility])[address] [place] [address] Lymphocytes/100 WBC (Bld) 32.3 % Normal 15.0-45.0 [facility] Comment on above: Performed By: #### L [id number] ####Hydroelectric Plant Structural Engineer: JACKI MANCILLA ([id number])[facility])[address] [place] [address] MCH (RBC) [Entitic mass] 28.5 pg Normal 26.0-34.0 [facility] Comment on above: Performed By: #### L [id number] ####Hydroelectric Plant Structural Engineer: JACKI MANCILLA ([id number])[facility])[address] [place] [address] MCHC 31.6 % Normal 30.5-36.0 [facility] Comment on above: Performed By: #### L [id number] ####Hydroelectric Plant Structural Engineer: JACKI MANCILLA ([id number])[address] MCV (RBC) [Entitic vol] 90.2 fL Normal 77.0-99.0 [facility] Comment on above: Performed By: #### L [id number] ####Hydroelectric Plant Structural Engineer: JACKI MANCILLA ([id number])[facility])[address] [place] [address] Monocytes (Bld) [#/Vol] 0.8 10*3/uL Normal 0.0-0.9 [facility] Comment on above: Performed By: #### L [id number] ####Hydroelectric Plant Structural Engineer: JACKI MANCILLA ([id number])[facility])[address] [place] [address] Monocytes/100 WBC (Bld) 12.8 % Normal 5.0-13.0 [facility] Comment on above: Performed By: #### L [id number] ####Hydroelectric Plant Structural Engineer: JACKI MANCILLA ([id number])[facility])[address] [place] [address] NEUTROPHILS ABSOLUTE 3.3 10*3/uL Normal 1.8-7.5 [facility] Comment on above: Performed By: #### L [id number] ####Hydroelectric Plant Structural Engineer: JACKI MANCILLA ([id number])[facility])[address] [place] [address] Neutrophils/100 WBC (Bld) 53.5 % Normal 38.0-82.0 [facility] Comment on above: Performed By: #### L [id number] ####Hydroelectric Plant Structural Engineer: JACKI MANCILLA ([id number])[facility] ([facility])[address] [place] [address] NRBC 0.0 /100 WBCs Normal 0.0-2.0 [facility] Comment on above: Performed By: #### L [id number] ####Hydroelectric Plant Structural Engineer: JACKI MANCILLA ([id number])[facility] ([facility])[address] [place] [address] Platelet mean volume (Bld) [Entitic vol] 11.7 fL Normal 9.0-12.7 [facility] Comment on above: Performed By: #### L [id number] ####Hydroelectric Plant Structural Engineer: JACKI MANCILLA ([id number])[facility] ([facility])[address] [place] [address] Platelets (Bld) [#/Vol] 148 10*3/uL Normal 140-440 [facility] Comment on above: Performed By: #### L [id number] ####Hydroelectric Plant Structural Engineer: JACKI MANCILLA ([id number])[facility] ([facility])[address] [place] [address] RBC (Bld) [#/Vol] 3.37 10*6/uL Low 3.80-5.20 [facility] Comment on above: Performed By: #### L [id number] ####Hydroelectric Plant Structural Engineer: JACKI MANCILLA ([id number])[facility] ([facility])[address] [place] [address] WBC (Bld) [#/Vol] 6.2 10*3/uL Normal 3.6-10.7 [facility] Comment on above: Performed By: #### L [id number] ####Hydroelectric Plant Structural Engineer: JACKI MANCILLA ([id number])[facility] ([facility])[address] [place] [address] Progress Noteon 12-05-2024 Progress Note Nutrition rescreen completed. Patient referred to the Dietitian due to wound consult for pressure injury. [facility] Progress Note ---- -------- Attestation signed by [...] known history of generalized epilepsy-EEG unlikely to change control analyst at this time -Some confusion about her [...] childhood) and cerebellar atrophy who presented to [facility] on 12/03 following witnessed seizure at facility. She met criteria for simple sepsis on admission. Neurology consulted for seizure management. Breakthrough seizure (witnessed 12/03) possibly 2/2 acute illness vs recent changes to AED regimen Idiopat (more content not included)... Normal [facility] 30on 12-04-2024 30 Problem: Knowledge Deficit Goal: Patient/family/caregiver demonstrates understanding of disease process, treatment plan, medications, and discharge instructions Outcome: Progressing Problem: Potential for Compromised Skin Integrity Goal: Skin Integrity is Maintained or Improved Outcome: Progressing Goal: Nutritional status is improving Outcome: Progressing Problem: Urinary Incontinence Goal: Perineal skin integrity is maintained or improved Outcome: Progressing Normal [facility] [id number] 12-04-2024 [id number] Pt discussed 12-04-24 during interdisciplinary rounds. Pt admitted from [facility] due to seizures. Pt has a history of seizure disorder. No needs anticipated but SW available as needs arise. [facility] BASIC METABOLIC PANELon 11-16 Anion gap [Moles/Vol] 6 mmol/L Normal 3-13 [facility] Comment on above: Performed By: #### L AB24, LAB15 ####[employer]electric Plant Structural Engineer: JACKI MANCILLA ([id number])SELECT [facility] ([address] Calcium [Mass/Vol] 7.8 mg/dL Low 8.8-10.0 [facility] Comment on above: Performed By: #### L AB24, LAB15 ####Hydroelectric Plant Structural Engineer: JACKI MANCILLA ([phone])[facility] ([facility])[address] [place] [address] Chloride [Moles/Vol] 113 mmol/L High 98-107 [facility] Comment on above: Performed By: #### L AB24, LAB15 ####Hydroelectric Plant Structural Engineer: JACKI MANCILLA ([id number])[facility] ([facility])[address] [place] [address] CO2 [Moles/Vol] 21 mmol/L Low 23-31 [facility] Comment on above: Performed By: #### L AB24, LAB15 ####Hydroelectric Plant Structural Engineer: JACKI MANCILLA ([id number])[facility] ([facility])[address] [place] [address] Creatinine [Mass/Vol] 0.73 mg/dL Normal 0.57-1.11 [facility] Comment on above: Performed By: #### L AB24, LAB15 ####Hydroelectric Plant Structural Engineer: JACKI MANCILLA ([id number])[facility])[address] [place] [address] GLOMERULAR FILTRATION RATE ML/MIN/1.73 SQ M.PREDICTED 84.8 mL/min/1.73m*2 Normal >60.0 [facility] Comment on above: Result Comment: Calc ulation based on the Chronic Kidney Disease Epidemiology Collaboration (CKD-EPI) equation refit without adjustment for race Performed By: #### L AB24, LAB15 ####Hydroelectric Plant Structural Engineer: JACKI MANCILLA ([id number])[facility] ([facility])[address] [place] [address] [place] Glucose [Mass/Vol] 97 mg/dL Normal 82-115 [facility] Comment on above: Performed By: #### L AB24, LAB15 ####Hydroelectric Plant Structural Engineer: JACKI MANCILLA ([id number])[facility])[address] [place] [address] [place] Potassium [Moles/Vol] 3.8 mmol/L Normal 3.5-5.1 [facility] Comment on above: Result Comment: [facility] potassium values may be up to 0.5 mmol/L lower than serum values. Performed By: #### L AB24, LAB15 ####Hydroelectric Plant Structural Engineer: JACKI MANCILLA ([phone])[facility] ([facility])[address] [place] [address] Sodium [Moles/Vol] 140 mmol/L Normal 136-145 [facility] Comment on above: Performed By: #### L AB24, LAB15 ####Hydroelectric Plant Structural Engineer: JACKI MANCILLA ([phone])[facility] ([facility])[address] [place] [address] Urea nitrogen [Mass/Vol] 21 mg/dL Normal 9-23 [facility] Comment on above: Performed By: #### L AB24, LAB15 ####Hydroelectric Plant Structural Engineer: JACKI MANCILLA ([id number])[facility] ([facility])[address] [place] [address] Basic metabolic 1998 panelon 12-04-2024 Anion gap [Moles/Vol] 6 mmol/L 3 - 13 mmol/L [facility] Calcium [Mass/Vol] 7.8 mg/dL Low 8.8 - 10. 0 mg/dL [facility] Chloride [Moles/Vol] 113 mmol/L High 98 - 10 7 mmol/L [facility] CO2 [Moles/Vol] 21 mmol/L Low 23 - 31 mmol/L [facility] Creatinine [Mass/Vol] 0.73 mg/dL 0.57 - 1.11 mg/dL [facility] GFR/1.73 sq M.predicted (S/P/Bld) [Vol rate/Area] 84.8 mL/min - PINF [facility] Comment on above: Calculation based on the Chronic Kidney Disease Epidemiology Collaboration (CKD-EPI) equation refit without adjustment for race Glucose [Mass/Vol] 97 mg/dL 82 - 115 mg/dL [facility] Interpretation and review of laboratory results Abnormal [facility] Potassium [Moles/Vol] 3.8 mmol/L 3.5 - 5.1 mmol/L [facility] Comment on above: Plasma potassium radha ues may be up to 0.5 mmol/L lower than serum values. Sodium [Moles/Vol] 140 mmol/L 136 - 145 mmol/L [facility] Urea nitrogen [Mass/Vol] 21 mg/dL 9 - 23 mg/dL [facility] CBC W Auto Differential pane l (Bld)on 12-04-2024 Basophils (Bld) [#/Vol] 0 10*3/uL 0.0 - 0.2 10*3/uL [facility] Basophils/100 WBC (Bld) 0.3 % 0.0 - 2.0 % [facility] Eosinophils (Bld) [#/Vol] 0 10*3/uL 0.0 - 0.5 10*3/uL [facility] Eosinophils/100 WBC (Bld) 0 % 0.0 - 6.0 % [facility] Erythrocyte distribution width (RBC) [Ratio] 13.4 % 11.5 - 15.0 % [facility] Hematocrit (Bld) [Volume fraction] 31.7 % Low 35.0 - 47.0 % [facility] Hemoglobin (Bld) [Mass/Vol] 10.3 g/dL Low 11.7 - 16.0 g/dL [facility] Immature granulocytes (Bld) [#/Vol] 0 10*3/uL NINF - 0.1 10*3/uL [facility] Immature granulocytes/100 WBC (Bld) 0.4 % 0.0 - 2.0 % [facility] Interpretation and review of laboratory results Abnormal [facility] Lymphocytes (Bld) [#/Vol] 1.2 10*3/uL 1.0 - 4.3 10*3/uL [facility] Lymphocytes/100 WBC (Bld) 16.4 % 15.0 - 45.0 % [facility] MCH (RBC) [Entitic mass] 28.9 pg 26. 0 - 34.0 pg [facility] MCHC (RBC) [Mass/Vol] 32.5 % 30.5 - 36.0 % [facility] MCV (RBC) [Entitic vol] 89 fL 77.0 - 99.0 fL [facility] Monocytes (Bld) [#/Vol] 0.8 10*3/uL 0.0 - 0.9 10*3/uL [facility] Monocytes/100 WBC (Bld) 10.5 % 5.0 - 13.0 % [facility] Neutrophils (Bld) [#/Vol] 5.4 10*3/uL 1.8 - 7.5 10*3/uL [facility] Neutrophils/100 WBC (Bld) 72.4 % 38.0 - 82.0 % [facility] Nucleated RBC/100 WBC (Bld) [Ratio] 0 % [facility] Platelet mean volume (Bld) [Entitic vol] 11.9 fL 9.0 - 12.7 fL [facility] Platelets (Bld) [#/Vol] 150 10*3/uL 140 - 440 10*3/uL [facility] RBC (Bld) [#/Vol] 3.56 10*6/uL Low 3.80 - 5.20 10*6/uL [facility] WBC (Bld) [#/Vol] 7.5 10*3/uL 3.6 - 10.7 10*3/uL [facility] CBC WITH AUTO DIFFERENTIALon 12-04-2024 Basophils (Bld) [#/Vol] 0.0 10*3/uL Normal 0.0-0.2 [facility] Comment on above: Performed By: #### L [id number] ####Hydroelectric Plant Structural Engineer: JACKI MANCILLA ([id number])[address] Basophils/100 WBC (Bld) 0.3 % Normal 0.0-2.0 [facility] Comment on above: Performed By: #### L [id number] ####Hydroelectric Plant Structural Engineer: JACKI MANCILLA ([id number])[facility] ([facility])[address] [place] [address] Eosinophils (Bld) [#/Vol] 0.0 10*3/uL Normal 0.0-0.5 [facility] Comment on above: Performed By: #### L [id number] ####Hydroelectric Plant Structural Engineer: JACKI MANCILLA ([id number])[facility])[address] [place] [address] Eosinophils/100 WBC (Bld) 0.0 % Normal 0.0-6.0 [facility] Comment on above: Performed By: #### L [id number] ####Hydroelectric Plant Structural Engineer: JACKI MANCILLA ([id number])[address] Erythrocyte distribution width (RBC) [Ratio] 13.4 % Normal 11.5-15.0 [facility] Comment on above: Performed By: #### L [id number] ####Hydroelectric Plant Structural Engineer: JACKI MANCILLA ([id number])[address] Hematocrit (Bld) [Volume fraction] 31.7 % Low 35.0-47.0 [facility] Comment on above: Performed By: #### L [id number] ####Hydroelectric Plant Structural Engineer: JACKI MANCILLA ([id number])[address] Hemoglobin (Bld) [Mass/Vol] 10.3 g/dL Low 11.7-16.0 [facility] Comment on above: Performed By: #### L [id number] ####Hydroelectric Plant Structural Engineer: JACKI MANCILLA ([id number])[address] IMMATURE GRANS % 0.4 % Normal 0.0-2.0 [facility] Comment on above: Performed By: #### L [id number] ####Hydroelectric Plant Structural Engineer: JACKI MANCILAL ([id number])[address] IMMATURE GRANS ABSOLUTE 0.0 10*3/uL Normal <0.1 [facility] Comment on above: Performed By: #### L [id number] ####Hydroelectric Plant Structural Engineer: JACKI MANCILLA ([id number])[address] Lymphocytes (Bld) [#/Vol] 1.2 10*3/uL Normal 1.0-4.3 [facility] Comment on above: Performed By: #### L [id number] ####Hydroelectric Plant Structural Engineer: JACKI MANCILLA ([id number])[facility])[address] [place] [address] Lymphocytes/100 WBC (Bld) 16.4 % Normal 15.0-45.0 [facility] Comment on above: Performed By: #### L [id number] ####Hydroelectric Plant Structural Engineer: JACKI MANCILLA ([id number])[facility])[address] [place] [address] MCH (RBC) [Entitic mass] 28.9 pg Normal 26.0-34.0 [facility] Comment on above: Performed By: #### L [id number] ####Hydroelectric Plant Structural Engineer: JACKI MANCILLA ([id number])[facility])[address] [place] [address] MCHC 32.5 % Normal 30.5-36.0 [facility] Comment on above: Performed By: #### L [id number] ####Hydroelectric Plant Structural Engineer: JACKI MANCILLA ([id number])[facility])[address] [place] [address] MCV (RBC) [Entitic vol] 89.0 fL Normal 77.0-99.0 [facility] Comment on above: Performed By: #### L [id number] ####Hydroelectric Plant Structural Engineer: JACKI MANCILLA ([id number])[facility])[address] [place] [address] Monocytes (Bld) [#/Vol] 0.8 10*3/uL Normal 0.0-0.9 [facility] Comment on above: Performed By: #### L [id number] ####Hydroelectric Plant Structural Engineer: JACKI MANCILLA ([id number])[facility])[address] [place] [address] Monocytes/100 WBC (Bld) 10.5 % Normal 5.0-13.0 [facility] Comment on above: Performed By: #### L [id number] ####Hydroelectric Plant Structural Engineer: JACKI MANCILLA ([id number])[facility])[address] [place] [address] NEUTROPHILS ABSOLUTE 5.4 10*3/uL Normal 1.8-7.5 [facility] Comment on above: Performed By: #### L [id number] ####Hydroelectric Plant Structural Engineer: JACKI MANCILLA ([id number])[facility])[address] [place] [address] Neutrophils/100 WBC (Bld) 72.4 % Normal 38.0-82.0 [facility] Comment on above: Performed By: #### L [id number] ####Hydroelectric Plant Structural Engineer: JACKI MANCILLA ([id number])[facility] ([facility])[address] [place] [address] NRBC 0.0 /100 WBCs Normal 0.0-2.0 [facility] Comment on above: Performed By: #### L [id number] ####Hydroelectric Plant Structural Engineer: JACKI MANCILLA ([id number])[facility])[address] [place] [address] Platelet mean volume (Bld) [Entitic vol] 11.9 fL Normal 9.0-12.7 [facility] Comment on above: Performed By: #### L [id number] ####Hydroelectric Plant Structural Engineer: JACKI MANCILLA ([id number])[facility] ([facility])[address] [place] [address] Platelets (Bld) [#/Vol] 150 10*3/uL Normal 140-440 [facility] Comment on above: Performed By: #### L [id number] ####Hydroelectric Plant Structural Engineer: JACKI MANCILLA ([id number])[facility] ([facility])[address] [place] [address] RBC (Bld) [#/Vol] 3.56 10*6/uL Low 3.80-5.20 [facility] Comment on above: Performed By: #### L [id number] ####Hydroelectric Plant Structural Engineer: JACKI MANCILLA ([id number])[facility])[address] [place] [address] WBC (Bld) [#/Vol] 7.5 10*3/uL Normal 3.6-10.7 [facility] Comment on above: Performed By: #### L [id number] ####Hydroelectric Plant Structural Engineer: JACKI MANCILLA ([id number])[address] HEAD WO IV CONTRASTon CT HEAD [...] EST Recurrent seizure with transient AMS Normal [facility] CT Head WO contraston 2024 No acute intracranial abnormalities or significant change from the prior study. Report Dictated on Electronically Signed By: Arpit Russo MD Electronically Signed Date/Time: 12/04/2024 2:43 PM [facility] Patient Name: KATHERYN YIP : 1945 [...] included paranasal sinuses and orbits are normal. [facility] Arpit Russo M D - 12/04/2024 [...] Signed Date/Time: 12/04/2024 2:43 PM EST [facility] Study observation (narrative) [facility] Head WO contrastOrdered B y: Arpit Russo on 12-04-2024 [employer] Work Phone: Consulton 12-04-2024 Consult ---- -------- [...] tremors sensation: intact to light touch cerebellar: [id number]-[id number] slow but intact gait: deferred secondary to [...] known history of generalized epilepsy-EEG unlikely to change control analyst at this time -Some confusion about her [...] or meningismus -Will continue to monitor for [employer] infectious symptoms I spent total time 80 minutes reviewing previous notes, test results, and face to face with the patient discussing the diagnosis and importance of compliance with the treatment plan as well as documenting on the day of the visit. -------- General Neurology Consult Patient: Katheryn Chino Date of : 1945 Acct: [id number] PCP: Orville Mendoza DO Date of Admission: 12/03/2024 Date of Service: Pt seen/examined on 12/04/24 Chief Complaint: Breakthrough seizure History Of Present Illness: 79 y.o. female with past medical history significant for idiopathic generalized epilepsy (since childhood), cerebellar atrophy (on MRI in 2018, thought to be 2/2 chronic Dilantin use), wheelchair dependence, chronic dysarthria, hypothyroidism who presented from [facility] to [facility] 12/03 with complaint of breakthrough seizure. Patient follows with Dr. Jimenez from [facility] and has been having generalized tonic-clonic seiz (more content not included)... Normal [facility] LACOSAMIDE (BKR QUEST)on QUEST LACOSAMIDE <0.5 Normal [facility] Comment on above: Result Comment: (Not e) Expected concentrations of Lacosamide in patients receiving recommended daily dosages: Up to 15.0 mcg/mL.Toxic range not established. This test was developed and its analytical performance characteristics have been determined by [facility]. It has not been cleared or approved by the FDA. This assay has been validated pursuant to the CLIA regulations and is used for clinical purposes. [employer] [address] [place] [address],[address] [place] [address] Jeff Gutiérrez MD, PhD Test performed by [email or web address] [address] [place] [address] [place] [address] Hydroelectric Plant Structural Engineer: Jeff Gutiérrez MD, PhD Test Reported by [facility] [place], [facility], [id number] [place] [address] Jorge L Guerrero M.D., Ph.D., Director of Laboratories , CLIA [id number] Performed By: #### L [id number] #### [facility] ([facility] [address] [place], [facility] Laboratory - Drug toxicology on 12-04-2024 Valproate [Mass/Vol] 18 ug/mL Low 50 - 12 5 ug/mL [facility] No Panel Informationon 12-04 Interpretation and review of laboratory results Abnormal [facility] Toxicity is seen at concentrations >175 ug/mL [facility] Nursing Noteon 12-04-2024 Nursing Note Wound Care consulted for Pressure Injury Prevention. Pt's Melo score= 16 on 12/04 Pt's pressure points assessed. Pt sitting in chair. OT present in room and assisted pt with standing for assessment of buttocks/coccyx. Pt's Heels, Buttocks/coccyx, Back, Elbows, Occiput and ears all intact. Prevention Measures in place, including: [place] sheet with pillows, Foam heel protectors (obtained [...] or concerns. Aliza Goins RN, BSN, CWCN Normal [facility] Progress Noteon 12-04-2024 Progress Note Patient seen and examined at bedside. Refer to Dr. Garza H&P for further details. See new orders. Receiving abx for likely UTI. From facility. Neurology consulted for breakthrough seizure. Denise Hair D.O. Division of Hospitalist Medicine [facility] Normal [facility] Respiratory pathogens DNA an d RNA panel RUTH+non-probe (Nph)on 12-04-2024 Adenovirus Not detected Not Detected [facility] B. pertussis DNA RUTH+probe Ql (Unsp spec) Not detected Not Detected [facility] Bordetella parapertussis Not detected Not Detected [facility] Chlamydia pneumoniae Not detected Not Detected [facility] Coronavirus 229E Not detected Not Detected [facility] Coronavirus HKU1 Not detected Not Detected [facility] Coronavirus NL63 Not detected Not Detected [facility] Coronavirus OC43 Not detected Not Detected [facility] FLUAV RNA RUTH+non-probe Ql (Nph) Not detected Not Detected [facility] FLUBV RNA RUTH+non-probe Ql (Nph) Not detected Not Detected [facility] Human Metapneumovirus Not detected Not Detected [facility] Human Rhinovirus/Enterovirus Not detected Not Detected [facility] Interpretation and review of laboratory results Normal [facility] Mycoplasma pneumoniae Not detected Not Detected [facility] Parainfluenza 1 Not detected Not Detected [facility] Parainfluenza 2 Not detected Not Detected [facility] Parainfluenza 3 Not detected Not Detected [facility] Parainfluenza 4 Not detected Not Detected [facility] Respiratory Syncytial Virus Not detected Not Detected [facility] SARS-CoV-2 (COVID-19) RNA RUTH+non-probe Ql (Nph) Not detected Not Detected [facility] Methodology: Multipl ex PCR [facility] VALPROIC ACID TOTALon 2024 VALPROIC ACID 18 ug/mL Low 50-125 [facility] Comment on above: Result Comment: ORDE R COMMENTS: Toxicity is seen at concentrations >175 ug/mL Performed By: #### L AB24, LAB15 ####Hydroelectric Plant Structural Engineer: JACKI MANCILLA ([id number])[facility] ([address] VALPROIC ACID TOTAL AND FREE (BKR [facility])on 12-04-2024 [facility] VALPROIC ACID 20.4 mg/L Low 50.0-100.0 [facility] Comment on above: Result Comment: Test Performed by [employer], [facility], [address] [place] [address] Jorge L Guerrero M.D., Ph.D., Director of Laboratories , [facility] [id number] Performed By: #### L [id number] ####[facility] (Bookioo[employer]AKER)[id number] [place], [facility] QUEST VALPROIC ACID, FREE <4.0 Low 4.8-17.3 [facility] Comment on above: Result Comment: Note: Non-linear drug binding properties result in the fraction of Free Valproic Acid increasing as total drug increases. The free fraction may range from 5% to 25% for the total drug range of 30-160 mg/L. Performed By: #### L AB172 ####[facility] (AMDBEAKER)[id number] [place], [facility] Absolute lymphocyte countOrd ered By: Damir Mckee on 12-03-2024 Lymphocytes Auto (Unsp spec) [#/Vol] 0.66 10*3/uL Low 0.83-4.51 [place] Absolute neutrophil countOrd ered By: Damir Mckee on 12-03-2024 Neutrophils (Bld) [#/Vol] 12.4 10*3/uL High 2.0-7.7 [facility] Automated lymphocyte count a s percentage of total leukocytesOrdered By: Damir Mckee on 12-03-2024 Lymphocytes/100 WBC Auto (Unsp spec) 4.8 % Low 19-41 [facility] BLOOD CULTUREon 12-03-2024 Bacteria identified Cx Nom (Bld) BLOOD CULTURE Reference No growth at 5 days ORDER COMMENTS: Blood Collection Site: Left Forearm [ S = SUSCEPTIBLE R = RESISTANT I = INTERMEDIATE S-DD = Susceptible-dose dependent NS = Non-susceptible NO = No Interpretation ] Normal [facility] Comment on above: Performed By: #### L AB239, [id number] #### Hydroelectric Plant Structural Engineer: JACKI MANCILLA ([id number]) [address] Bacteria identified Cx Nom (Bld) BLOOD CULTURE Reference No growth at 5 days ORDER COMMENTS: Blood Collection Site: Left Hand [ S = SUSCEPTIBLE R = RESISTANT I = INTERMEDIATE S-DD = Susceptible-dose dependent NS = Non-susceptible NO = No Interpretation ] Normal [facility] Comment on above: Performed By: #### L [id number] ####[employer]electric [employer] Structural Engineer: JACKI MANCILLA ([id number])[address] Basic Metabolic Profile (BMP )on 12-03-2024 BUN/CRE 29.9 RATIO High 10-20 [facility] Comment on above: Performed By: #### L 100.0100, L501.8100, L501.7700, L500.4050 #### [facility] [address] [place], [address] CA,Total 7.4 mg/dL Low 8.5-10.1 [facility] Comment on above: Performed By: #### L 100.0100, L501.8100, L501.7700, L500.4050 #### [facility] [address] [place], [address] Chloride [Moles/Vol] 114 mmol/L High 98-107 [facility] Comment on above: Performed By: #### L 100.0100, L501.8100, L501.7700, L500.4050 #### [facility] [address] [place], [address] CO2 [Moles/Vol] 21.0 mmol/L Normal 21.0-32.0 [facility] Comment on above: Performed By: #### L 100.0100, L501.8100, L501.7700, L500.4050 #### [facility] [address] [place], [address] Creatinine [Mass/Vol] 0.64 mg/dL Normal 0.55-1.02 [facility] Comment on above: Result Comment: The validity of the calculated GFR GFRAA in patients over 70 years has not been determined. Clinical correlation is essential. Performed By: #### L 100.0100, L501.8100, L501.7700, L500.4050 #### [facility] [address] [place], [address] ECRCL 63.94 ml/min Normal [facility] Comment on above: Performed By: #### L 100.0100, L501.8100, L501.7700, L500.4050 #### [facility] [address] [place], [address] EST GFR - AA 116 mL/min Normal >60 [facility] Comment on above: Result Comment: Afri can Citizen [place] GFR Calc Performed By: #### L 100.0100, L501.8100, L501.7700, L500.4050 #### [facility] [address] [place], [address] GAP 8 Normal 5-15 [facility] Comment on above: Performed By: #### L 100.0100, L501.8100, L501.7700, L500.4050 #### [facility] [address] [place], [address] GFR/1.73 sq M.predicted among non-blacks MDRD (S/P/Bld) [Vol rate/Area] 96 mL/min/{1.73_m2} Normal >60 [facility] Comment on above: Result Comment: Non- GFR Calc Performed By: #### L 100.0100, L501.8100, L501.7700, L500.4050 #### [facility] [address] [place], [address] Glucose [Mass/Vol] 141 mg/dL High 74-106 [facility] Comment on above: Result Comment: Fast ing Glucose result greater than or equal to 126 mg/dL suggests DIABETES MELLITUS per A.D.A. criteria. Performed By: #### L 100.0100, L501.8100, L501.7700, L500.4050 #### [facility] [address] [place], [address] Potassium [Moles/Vol] 3.3 mmol/L Low 3.5-5.1 [facility] Comment on above: Performed By: #### L 100.0100, L501.8100, L501.7700, L500.4050 #### [facility] [address] [place], [address] Sodium [Moles/Vol] 143 mmol/L Normal 136-145 [facility] Comment on above: Performed By: #### L 100.0100, L501.8100, L501.7700, L500.4050 #### [facility] [address] [place], [address] Urea nitrogen [Mass/Vol] 19 mg/dL High 7-18 [facility] Comment on above: Performed By: #### L 100.0100, L501.8100, L501.7700, L500.4050 #### [facility] [place], [address] Basophil percentageOrdered B y: Damir Mckee on 12-03-2024 Basophils/100 WBC (Bld) 0.3 % 0-1 [facility] Blood urea nitrogen (BUN)/cr eatinine ratioOrdered By: Damir Mckee on 12-03-2024 Urea nitrogen/Creatinine [Mass ratio] 29.9 mg/mg High 10-20 [place] CBC W Auto Differential pane l (Bld)Ordered By: Charley Traore on 12-03-2024 Basophils (Bld) [#/Vol] 0 10*3/uL 0.0 - 0.2 10*3/uL [facility] Basophils/100 WBC (Bld) 0.1 % 0.0 - 2.0 % [facility] Eosinophils (Bld) [#/Vol] 0 10*3/uL 0.0 - 0.5 10*3/uL [facility] Eosinophils/100 WBC (Bld) 0 % 0.0 - 6.0 % [facility] Erythrocyte distribution width (RBC) [Ratio] 13.2 % 11.5 - 15.0 % [facility] Hematocrit (Bld) [Volume fraction] 36.9 % 35.0 - 47.0 % [facility] Hemoglobin (Bld) [Mass/Vol] 11.6 g/dL Low 11.7 - 16.0 g/dL [facility] Immature granulocytes (Bld) [#/Vol] 0.1 10*3/uL High NINF - 0.1 10*3/uL [facility] Immature granulocytes/100 WBC (Bld) 0.5 % 0.0 - 2.0 % [facility] Interpretation and review of laboratory results Abnormal [facility] Lymphocytes (Bld) [#/Vol] 0.6 10*3/uL Low 1.0 - 4.3 10*3/uL [facility] Lymphocytes/100 WBC (Bld) 5.8 % Low 15.0 - 45.0 % [facility] MCH (RBC) [Entitic mass] 28.2 pg 26. 0 - 34.0 pg [facility] MCHC (RBC) [Mass/Vol] 31.4 % 30.5 - 36.0 % [facility] MCV (RBC) [Entitic vol] 89.6 fL 77.0 - 99.0 fL [facility] Monocytes (Bld) [#/Vol] 0.6 10*3/uL 0.0 - 0.9 10*3/uL [facility] Monocytes/100 WBC (Bld) 5.9 % 5.0 - 13.0 % [facility] Neutrophils (Bld) [#/Vol] 9.6 10*3/uL High 1.8 - 7.5 10*3/uL [facility] Neutrophils/100 WBC (Bld) 87.7 % High 38.0 - 82.0 % [facility] Nucleated RBC/100 WBC (Bld) [Ratio] 0 % [facility] Platelet mean volume (Bld) [Entitic vol] 11.7 fL 9.0 - 12.7 fL [facility] Platelets (Bld) [#/Vol] 202 10*3/uL 140 - 440 10*3/uL [facility] RBC (Bld) [#/Vol] 4.12 10*6/uL 3.80 - 5.20 10*6/uL [facility] WBC (Bld) [#/Vol] 10.9 10*3/uL High 3.6 - 10.7 10*3/uL [facility] CBC W/Diff, Automatedon 11-15 Absolute Lymph 0.66 X10 3/uL Low 0.83-4.51 [facility] Comment on above: Performed By: #### L 100.0100, L501.8100, L501.7700, L500.4050 #### [facility] [address] [place], [address] Absolute Neut 12.4 X10 3/uL High 2.0-7.7 [facility] Comment on above: Performed By: #### L 100.0100, L501.8100, L501.7700, L500.4050 #### [facility] [address] [place], [address] Basophils/100 WBC (Bld) 0.3 % Normal 0-1 [facility] Comment on above: Performed By: #### L 100.0100, L501.8100, L501.7700, L500.4050 #### [facility] [address] [place], [address] Eosinophils/100 WBC (Bld) 0.0 % Normal 0-5 [facility] Comment on above: Performed By: #### L 100.0100, L501.8100, L501.7700, L500.4050 #### [facility] [address] [place], [address] Erythrocyte distribution width (RBC) [Ratio] 13.2 % Normal 11.6-14.6 [facility] Comment on above: Performed By: #### L 100.0100, L501.8100, L501.7700, L500.4050 #### [facility] [address] [place], [address] Hematocrit (Bld) [Volume fraction] 36.5 % Low 37-47 [facility] Comment on above: Performed By: #### L 100.0100, L501.8100, L501.7700, L500.4050 #### [facility] [address] [place], [address] Hemoglobin (Bld) [Mass/Vol] 11.9 g/dL Low 12.0-15.0 [facility] Comment on above: Performed By: #### L 100.0100, L501.8100, L501.7700, L500.4050 #### [facility] [address] [place], [address] IG% 0.400 Normal 0.0-0.9 [facility] Comment on above: Result Comment: IG% - Immature Granulocytes (promyelocytes, myelocytes and metamyelocytes) > 1% indicates that a LEFT SHIFT is Present. Performed By: #### L 100.0100, L501.8100, L501.7700, L500.4050 #### [facility] [address] [place], [address] Lymphocytes/100 WBC (Bld) 4.8 % Low 19-41 [facility] Comment on above: Performed By: #### L 100.0100, L501.8100, L501.7700, L500.4050 #### [facility] [address] [place], [address] MCH (RBC) [Entitic mass] 29.1 pg Normal 27.0-32.0 [facility] Comment on above: Performed By: #### L 100.0100, L501.8100, L501.7700, L500.4050 #### [facility] [address] [place], [address] MCHC (RBC) [Mass/Vol] 32.6 g/dL Normal 32-36 [facility] Comment on above: Performed By: #### L 100.0100, L501.8100, L501.7700, L500.4050 #### [facility] [address] [place], [address] MCV (RBC) [Entitic vol] 89.2 fL Normal 81-99 [facility] Comment on above: Performed By: #### L 100.0100, L501.8100, L501.7700, L500.4050 #### [facility] [address] [place], [address] Monocytes/100 WBC (Bld) 4.8 % Normal 0-10 [facility] Comment on above: Performed By: #### L 100.0100, L501.8100, L501.7700, L500.4050 #### [facility] [address] [place], [address] Neutrophils/100 WBC (Bld) 89.7 % High 47-70 [facility] Comment on above: Performed By: #### L 100.0100, L501.8100, L501.7700, L500.4050 #### [facility] [address] [place], [address] Nucleated RBC (Bld) [#/Vol] 0 10*3/uL Normal 0-5 [facility] Comment on above: Performed By: #### L 100.0100, L501.8100, L501.7700, L500.4050 #### [facility] [address] [place], [address] Platelet mean volume (Bld) [Entitic vol] 11.9 fL Normal 6.2-12.0 [facility] Comment on above: Performed By: #### L 100.0100, L501.8100, L501.7700, L500.4050 #### [facility] [address] [place], [address] Platelets (Bld) [#/Vol] 199 10*3/uL Normal 150-450 [facility] Comment on above: Performed By: #### L 100.0100, L501.8100, L501.7700, L500.4050 #### [facility] [address] [place], [address] RBC (Bld) [#/Vol] 4.09 10*6/uL Low 4.2-5.4 [facility] Comment on above: Performed By: #### L 100.0100, L501.8100, L501.7700, L500.4050 #### [facility] [address] [place], [address] RDW SD 43.0 fl Normal 35.1-43.9 [facility] Comment on above: Performed By: #### L 100.0100, L501.8100, L501.7700, L500.4050 #### [facility] [address] [place], [address] WBC (Bld) [#/Vol] 13.8 10*3/uL High 4.4-11.0 [facility] Comment on above: Performed By: #### L 100.0100, L501.8100, L501.7700, L500.4050 #### [facility] [address] [place], [address] CBC WITH AUTO DIFFERENTIALon 12-03-2024 Basophils (Bld) [#/Vol] 0.0 10*3/uL Normal 0.0-0.2 [facility] Comment on above: Performed By: #### L [id number] ####[employer] Structural Engineer: JACKI MANCILLA ([id number])[facility] ([facility])[address] [place] [address] Basophils/100 WBC (Bld) 0.1 % Normal 0.0-2.0 [facility] Comment on above: Performed By: #### L [id number] ####[employer] Structural Engineer: JACKI MANCILLA ([id number])[facility])[address] [place] [address] Eosinophils (Bld) [#/Vol] 0.0 10*3/uL Normal 0.0-0.5 [facility] Comment on above: Performed By: #### L [id number] ####[employer] Structural Engineer: JACKI MANCILLA ([id number])[facility])[address] [place] [address] Eosinophils/100 WBC (Bld) 0.0 % Normal 0.0-6.0 [facility] Comment on above: Performed By: #### L [id number] ####[employer] Structural Engineer: JACKI MANCILLA ([id number])[facility])[address] [place] [address] Erythrocyte distribution width (RBC) [Ratio] 13.2 % Normal 11.5-15.0 [facility] Comment on above: Performed By: #### L [id number] ####[employer] Structural Engineer: JACKI MANCILLA ([id number])[facility])[address] [place] [address] Hematocrit (Bld) [Volume fraction] 36.9 % Normal 35.0-47.0 [facility] Comment on above: Performed By: #### L [id number] ####[employer] Structural Engineer: JACKI MANCILLA ([id number])[facility])[address] [place] [address] Hemoglobin (Bld) [Mass/Vol] 11.6 g/dL Low 11.7-16.0 [facility] Comment on above: Performed By: #### L [id number] ####[employer] Structural Engineer: JACKI MANCILLA ([id number])[facility])[address] [place] [address] IMMATURE GRANS % 0.5 % Normal 0.0-2.0 [facility] Comment on above: Performed By: #### L [id number] ####[employer] Structural Engineer: JACKI MANCILLA ([id number])[facility])[address] [place] [address] IMMATURE GRANS ABSOLUTE 0.1 10*3/uL High <0.1 [facility] Comment on above: Performed By: #### L [id number] ####[employer] Structural Engineer: JACKI MANCILLA ([id number])[facility])[address] [place] [address] Lymphocytes (Bld) [#/Vol] 0.6 10*3/uL Low 1.0-4.3 [facility] Comment on above: Performed By: #### L [id number] ####[employer] Structural Engineer: JACKI MANCILLA ([id number])[facility])[address] [place] [address] Lymphocytes/100 WBC (Bld) 5.8 % Low 15.0-45.0 [facility] Comment on above: Performed By: #### L [id number] ####[employer] Structural Engineer: JACKI MANCILLA ([id number])[facility])[address] [place] [address] MCH (RBC) [Entitic mass] 28.2 pg Normal 26.0-34.0 [facility] Comment on above: Performed By: #### L [id number] ####[employer] Structural Engineer: JACKI MANCILLA ([id number])[facility])[address] [place] [address] MCHC 31.4 % Normal 30.5-36.0 [facility] Comment on above: Performed By: #### L [id number] ####[employer] Structural Engineer: JACKI MANCILLA ([id number])[facility])[address] [place] [address] MCV (RBC) [Entitic vol] 89.6 fL Normal 77.0-99.0 [facility] Comment on above: Performed By: #### L [id number] ####[employer] Structural Engineer: JACKI MANCILLA ([id number])[facility])[address] [place] [address] Monocytes (Bld) [#/Vol] 0.6 10*3/uL Normal 0.0-0.9 [facility] Comment on above: Performed By: #### L [id number] ####[employer] Structural Engineer: JACKI MANCILLA ([id number])[facility])[address] [place] [address] Monocytes/100 WBC (Bld) 5.9 % Normal 5.0-13.0 [facility] Comment on above: Performed By: #### L [id number] ####[employer] Structural Engineer: JACKI MANCILLA ([id number])[facility])[address] [place] [address] NEUTROPHILS ABSOLUTE 9.6 10*3/uL High 1.8-7.5 [facility] Comment on above: Performed By: #### L [id number] ####[employer] Structural Engineer: JACKI MANCILLA ([id number])[facility])[address] [place] [address] Neutrophils/100 WBC (Bld) 87.7 % High 38.0-82.0 [facility] Comment on above: Performed By: #### L [id number] ####[employer] Structural Engineer: JACKI MANCILLA ([id number])[facility] ([facility])[address] [place] [address] NRBC 0.0 /100 WBCs Normal 0.0-2.0 [facility] Comment on above: Performed By: #### L [id number] ####[employer] Structural Engineer: JACKI MANCILLA ([id number])[facility] ([facility])[address] [place] [address] Platelet mean volume (Bld) [Entitic vol] 11.7 fL Normal 9.0-12.7 [facility] Comment on above: Performed By: #### L [id number] ####[employer] Structural Engineer: JACKI MANCILLA ([id number])[facility] ([facility])[address] [place] [address] Platelets (Bld) [#/Vol] 202 10*3/uL Normal 140-440 [facility] Comment on above: Performed By: #### L [id number] ####[employer] Structural Engineer: JACKI MANCILLA ([id number])[facility] ([facility])[address] [place] [address] RBC (Bld) [#/Vol] 4.12 10*6/uL Normal 3.80-5.20 [facility] Comment on above: Performed By: #### L [id number] ####[employer] Structural Engineer: JACKI MANCILLA ([id number])[facility] ([facility])[address] [place] [address] WBC (Bld) [#/Vol] 10.9 10*3/uL High 3.6-10.7 [facility] Comment on above: Performed By: #### L [id number] ####[employer] Structural Engineer: JACKI MANCILLA ([id number])[facility])[address] [place] [address] Kuldip 12-03-2024 LIBORIO Telephone (MARLYNJazmyn) -------- KATHERYN CHINO ([id number]) 1945 F Date Time Provider Department 12/03/24 JAYANT JIMENEZ During your visit today, we recorded the following information about you: Franchesca Arana 12/03/2024 2:43 PM Signed Received patients seizure monitoring sheet from [facility]. Uploaded to [facility] Silvia Rogers RN 12/09/2024 2:45 PM Addendum Seizure Call - spoke with nurse Katia. [facility] PH: [phone] FAX : [phone] Last Visit: 09/24/24 Next Visit: 01/15/25 Date [...] Other: patient was taken to local ED, [facility]. The patient will be transferred to [...] PM Signed Spoke with nurse Inman at [facility]. Informed her of recommendations to increase LCM to 150mg BID, with read back. Nurse requests rx to be faxed to the facility. [facility] PH: [phone] FAX : [phone] MEGA Christianson Kelly, APRN.WELDING MACHINE SETTER 12/04/2024 6:15 PM Signed The following approved medication requests have been transmitted electronically. Requested Prescriptions Signed Prescriptions Disp Refills lacosamide (VIMPAT) 150 mg tab 180 tablet 1 Sig: Take 1 tablet by mouth two times a day for 180 days. Authorizing Provider: ARTIS HAMILTON APRN.Silvia Willis RN 12/05/2024 8:58 AM Signed Updated LCM 150mg BID rx faxed via [facility] to [facility]. Confirmation received. MEGA Christianson Nancy 12/08/2024 1:33 PM Signed Rosita nathony/ [facility] LCM clarification and seizure activity; she can be reached at [phone] - ask for Katheryn'Silvia Beck RN 12/09/2024 2:47 PM Addendum Spoke with nurse Becker. The patient returned from the hospital yesterday. [...] Christianson Kelly, (more content not included)... Normal [facility] COMPLETE URINALYSISon 2024 BACTERIA (#/HPF) IN URINE Loaded Abnormal Negative [facility] Comment on above: Performed By: #### L [id number], [id number] #### [employer]electric Plant Structural Engineer: JACKI MANCILLA ([id number]) [facility] ([facility]) [address] [place] [address] [place] BILIRUBIN, TOTAL PRESENCE IN URINE Negative Normal Negative [facility] Comment on above: Performed By: #### L AB239, [id number] #### [employer] Structural Engineer: JACKI MANCILLA ([id number]) [facility] ([facility]) [address] [place] [address] [place] Clarity (U) Extra Turbid Abnormal Clear [facility] Comment on above: Performed By: #### L AB239, [id number] #### [employer]electric [employer] Structural Engineer: JACKI MANCILLA ([id number]) [facility] [address] [place] [address] Color (U) Yellow Normal Lt. Yellow [facility] Comment on above: Performed By: #### L AB239, [id number] #### [employer] Structural Engineer: JACKI MANCILLA ([id number]) [facility] ([facility]) [address] [place] [address] GLUCOSE (MG/DL) IN URINE Normal Normal Nor mal (<70) [facility] Comment on above: Performed By: #### L AB239, [id number] #### [employer] Structural Engineer: JACKI MANCILLA ([id number]) [facility] ([facility]) [address] [place] [address] HEMOGLOBIN PRESENCE IN URINE 0.06 mg/dL Abnormal Negative [facility] Comment on above: Performed By: #### L AB239, [id number] #### [employer] Structural Engineer: JACKI MANCILLA ([id number]) [facility] [address] [place] [address] HYALINE CASTS (#/LPF) IN URINE SEDIMENT BY MICROSCOPY Negative Normal Negative [facility] Comment on above: Performed By: #### L AB239, [id number] #### [employer] Structural Engineer: JACKI MANCILLA ([id number]) [facility] ([facility]) [address] [place] [address] Ketones Ql (U) Trace Abnormal Negative [facility] Comment on above: Performed By: #### L AB239, [id number] #### [employer] Structural Engineer: JACKI MANCILLA ([id number]) [facility] ([facility]) [address] [place] [address] LEUKOCYTE ESTERASE PRESENCE IN URINE BY TEST STRIP 500 James/uL Abnormal Negative [facility] Comment on above: Performed By: #### L AB239, [id number] #### [employer] Structural Engineer: JACKI MANCILLA ([id number]) [facility] [address] [place] [address] [place] MUCUS (#/LPF) IN URINE SEDIMENT Few Normal Negative [facility] Comment on above: Performed By: #### L AB239, [id number] #### [employer] Structural Engineer: JACKI MANCILLA ([id number]) [facility]) [address] [place] [address] NITRITE PRESENCE IN URINE Negative Normal Negative [facility] Comment on above: Performed By: #### L AB239, [id number] #### [employer] Structural Engineer: JACKI MANCILLA ([id number]) [facility]) [address] [place] [address] NON-SQUAMOUS EPITHELIAL (#/HPF) IN URINE 3-5 Abnormal Negative [facility] Comment on above: Performed By: #### Ailyn AB239, [id number] #### [employer] Structural Engineer: JACKI MANCILLA ([id number]) [facility]) [address] [place] [address] pH (U) 6.0 [pH] Normal 5.0-8.0 [facility] Comment on above: Performed By: #### Ailyn AB239, [id number] #### [employer] Structural Engineer: JACKI MANCILLA ([id number]) [facility]) [address] [place] [address] Protein (U) [Mass/Vol] 100 mg/dL Abnormal Negative [facility] Comment on above: Performed By: #### Ailyn AB239, [id number] #### [employer]electric [employer] Structural Engineer: JACKI MANCILLA ([id number]) [facility]) [address] [place] [address] [place] RBC (#/HPF) IN URINE SEDIMENT 11-25 Abnormal 0-2 [facility] Comment on above: Performed By: #### L AB239, [id number] #### [employer] Structural Engineer: JACKI MANCILLA ([id number]) [address] Specific gravity (U) [Rel density] >1.030 High 1.005-1.03 0 [facility] Comment on above: Performed By: #### L AB239, [id number] #### [employer]electric [employer] Structural Engineer: JACKI MANCILLA ([id number]) [facility] ([facility]) [address] [place] [address] SQUAMOUS EPITHELIAL CELLS (#/HPF) IN URINE SEDIMENT 11-25 Abnormal 3-5 [facility] Comment on above: Performed By: #### L AB239, [id number] #### [employer]electric [employer] Structural Engineer: JACKI MANCILLA ([id number]) [facility]) [address] [place] [address] UROBILINOGEN (MG/DL) IN URINE Normal Normal Normal (0-1) [facility] Comment on above: Performed By: #### L AB239, [id number] #### [employer]electric [employer] Structural Engineer: JACKI MANCILLA ([id number]) [facility] ([facility]) [address] [place] [address] WBC (LEUKOCYTE) (#/HPF) IN URINE SEDIMENT >100 Abnormal 0-5 [facility] Comment on above: Performed By: #### L AB239, [id number] #### [employer]electric [employer] Structural Engineer: JACKI MANCILLA ([id number]) [facility]) [address] [place] [address] WBC (LEUKOCYTE) CLUMPS (#/HPF) IN URINE SEDIMENT Many Abnormal Negative [facility] Comment on above: Performed By: #### L AB239, [id number] #### [employer] Structural Engineer: JACKI MANCILLA ([id number]) [facility] ([facility]) [address] [place] [address] COMPREHENSIVE METABOLIC PANE Scottie 12-03-2024 Albumin [Mass/Vol] 3.5 g/dL Normal 3.4-4.8 [facility] Comment on above: Performed By: #### L AB17 ####[employer]electric Plant Structural Engineer: JACKI MANCILLA ([id number])[facility] ([facility])[address] [place] [address] ALP [Catalytic activity/Vol] 90 U/L Normal 40-150 [facility] Comment on above: Performed By: #### L AB17 ####[employer]electric [employer] Structural Engineer: JACKI MANCILLA ([id number])[facility] ([facility])[address] [place] [address] ALT [Catalytic activity/Vol] 14 U/L Normal <30 [facility] Comment on above: Performed By: #### L AB17 ####[employer]electric [employer] Structural Engineer: JACKI MANCILLA ([id number])[facility] ([facility])[address] [place] [address] Anion gap [Moles/Vol] 10 mmol/L Normal 3-13 [facility] Comment on above: Performed By: #### L AB17 ####[employer]electric [employer] Structural Engineer: JACKI MANCILLA ([id number])[facility] ([facility])[address] [place] [address] AST [Catalytic activity/Vol] 31 U/L Normal <34 [facility] Comment on above: Performed By: #### L AB17 ####[employer]electric [employer] Structural Engineer: JACKI MANCILLA ([id number])[facility] ([facility])[address] [place] [address] Bilirubin [Mass/Vol] 0.5 mg/dL Normal <1.2 [facility] Comment on above: Performed By: #### L AB17 ####[employer]electric [employer] Structural Engineer: JACKI MANCILLA ([id number])[facility] ([facility])[address] [place] [address] Calcium [Mass/Vol] 8.5 mg/dL Low 8.8-10.0 [facility] Comment on above: Performed By: #### L AB17 ####[employer]electric [employer] Structural Engineer: JACKI MANCILLA ([id number])[facility] ([facility])[address] [place] [address] [place] Chloride [Moles/Vol] 109 mmol/L High 98-107 [facility] Comment on above: Performed By: #### L AB17 ####[employer]electric [employer] Structural Engineer: JACKI MANCILLA ([id number])[facility])[address] [place] [address] CO2 [Moles/Vol] 22 mmol/L Low 23-31 [facility] Comment on above: Performed By: #### L AB17 ####[employer] Structural Engineer: JACKI MANCILLA ([id number])[facility])[address] [place] [address] Creatinine [Mass/Vol] 0.82 mg/dL Normal 0.57-1.11 [facility] Comment on above: Performed By: #### L AB17 ####[employer]electric [employer] Structural Engineer: JACKI MANCILLA ([id number])[facility])[address] [place] [address] GLOMERULAR FILTRATION RATE ML/MIN/1.73 SQ M.PREDICTED 73.8 mL/min/1.73m*2 Normal >60.0 [facility] Comment on above: Result Comment: Calc ulation based on the Chronic Kidney Disease Epidemiology Collaboration (CKD-EPI) equation refit without adjustment for race Performed By: #### L AB17 ####Hydroelectric Plant Structural Engineer: JACKI MANCILLA ([id number])[facility])[address] [place] [address] Glucose [Mass/Vol] 112 mg/dL Normal 82-115 [facility] Comment on above: Performed By: #### L AB17 ####Hydroelectric Plant Structural Engineer: JACKI MANCILLA ([id number])[facility])[address] [place] [address] Potassium [Moles/Vol] 4.1 mmol/L Normal 3.5-5.1 [facility] Comment on above: Result Comment: [facility] potassium values may be up to 0.5 mmol/L lower than serum values. Performed By: #### L AB17 ####Hydroelectric Plant Structural Engineer: JACKI MANCILLA ([id number])[facility])[address] [place] [address] Protein [Mass/Vol] 7.1 g/dL Normal 6.4-8.3 [facility] Comment on above: Performed By: #### L AB17 ####Hydroelectric Plant Structural Engineer: JACKI MANCILLA ([id number])[facility])[address] [place] [address] Sodium [Moles/Vol] 141 mmol/L Normal 136-145 [facility] Comment on above: Performed By: #### L AB17 ####Hydroelectric Plant Structural Engineer: JACKI [id number])[facility] ([facility])[address] [place] [address] Urea nitrogen [Mass/Vol] 23 mg/dL Normal 9- [facility] Comment on above: Performed By: #### L AB17 ####Hydroelectric Plant Structural Engineer: JACKI MANCILLA ([id number])[facility] ([facility])[address] [place] [address] CT ABDOMEN PELVIS W CONTRAST on 12-03-2024 [...] EST Abdominal pain, acute, nonlocalized, Nausea/vomiting Normal [facility] CT Abdomen and Pelvis W cont rast Srikanth 12-03-2024 1. Possible cystitis, correlate with urinalysis. 2. Gallstones. Report Dictated on Electronically Signed By: Wilber Christianson MD Electronically Signed Date/Time: 12/03/2024 9:33 PM EST [facility] Patient Name: KATHERYN YIP : [...] inflamed, correlate for possible cystitis. Normal appendix. [facility] Wilber Christianson MD - 12/03/2024 Patient [...] Electronically Signed Date/Time: 12/03/2024 9:33 PM EST [facility] Radiology Study observation (narrative) [facility] Abdomen and Pelvis W cont rast IVOrdered By: Wilber Christianson on 12-03-2024 [facility] Work Phone: Carbon dioxide measurementOr dered By: Damir Mckee on 12-03-2024 CO2 [Moles/Vol] 21.0 mmol/L 21.0-32.0 [place] Chest 1 View (Portable)on Chest 1 View (Portable) [facility] Imaging Services [address] [place] [id number] Chest 1 View (Portable) MR#: [id number] Acct: [id number] Name: KATHERYN CHINO Rep #: [id number] : 1945 F 79 From: Darwin grigsby MD PCP: Dr. Todd Velasquez Sr., DO Status: REG ER Study: Chest 1 View (Portable) Date of Exam: 12/03/24 Exam# [id number] Ordering Dr: Damir Mckee MD PROCEDURE: CHEST [...] Elevation of the right hemidiaphragm. Reading Location: [facility] CC: Dr. Todd Velasquez Sr., DO; Dr. Damir Mckee MD Analog Design Engineer: Signed Normal [place] Chloride measurementOrdered By: Damir Mckee on 12-03-2024 Chloride [Moles/Vol] 114 mmol/L High 98-107 [facility] Comprehensive metabolic 1998 panelon 12-03-2024 Albumin [Mass/Vol] 3.5 g/dL 3.4 - 4.8 g/dL [facility] ALP [Catalytic activity/Vol] 90 U/L 40 - 150 U/L [facility] ALT [Catalytic activity/Vol] 14 U/L NINF - 30 U/L [facility] Anion gap [Moles/Vol] 10 mmol/L 3 - 13 mmol/L [facility] AST [Catalytic activity/Vol] 31 U/L NINF - 34 U/L [facility] Bilirubin [Mass/Vol] 0.5 mg/dL NINF - 1.2 mg/dL [facility] Calcium [Mass/Vol] 8.5 mg/dL Low 8.8 - 10. 0 mg/dL [facility] Chloride [Moles/Vol] 109 mmol/L High 98 - 10 7 mmol/L [facility] CO2 [Moles/Vol] 22 mmol/L Low 23 - 31 mmol/L [facility] Creatinine [Mass/Vol] 0.82 mg/dL 0.57 - 1.11 mg/dL [facility] GFR/1.73 sq M.predicted (S/P/Bld) [Vol rate/Area] 73.8 mL/min - PINF [facility] Comment on above: Calculation based on the Chronic Kidney Disease Epidemiology Collaboration (CKD-EPI) equation refit without adjustment for race Glucose [Mass/Vol] 112 mg/dL 82 - 115 mg/dL [facility] Interpretation and review of laboratory results Abnormal [facility] Potassium [Moles/Vol] 4.1 mmol/L 3.5 - 5.1 mmol/L [facility] Comment on above: Plasma potassium radha ues may be up to 0.5 mmol/L lower than serum values. Protein [Mass/Vol] 7.1 g/dL 6.4 - 8.3 g/dL [facility] Sodium [Moles/Vol] 141 mmol/L 136 - 145 mmol/L [facility] Urea nitrogen [Mass/Vol] 23 mg/dL 9 - 23 mg/dL [facility] ECG 12-LEADon 12-03-2024 ECG 12-LEAD IMPRESSION: Sinus rhythm Borderline T abnormalities, anterior leads Electronically Signed On 12-03-2024 22:55:54 EST by Roxanna PerezPremier [facility] Provider Noteon ED Provider Note Emergency Department Encounter [facility] EMERGENCY DEPT Patient: Katheryn Chino : [...] the emergency department as a transfer from [place] for breakthrough seizure. Patient reports she has [...] [employer] Miriam Hennessy, DO 12/04/24 0003 [facility] ED Provider Note EMERGENCY DEPARTMENT ENCOUNTER Pt Name: Katheryn Chino Birthdate 1945 Date of evaluation: 12/03/2024 ED Provider: Rancho Diamond PA-C CHIEF COMPLAINT Chief Complaint Patient [facility] Pt from [facility] for 38 minute witnessed seizure this [...] the seizure. They did take her to [facility] where she was supposedly observed there [...] Insecurity: No Food Insecurity (08/18/2024) Received from [facility] Hunger Vital Sign Worried About Running Out of Food in the Last Year: Never true Ran Out of Food in the Last Year: Never true Transportation Needs: No Transportation Needs (08/18/2024) Received from [facility] PRAPARE - Transportation Lack of Transportation (Medical): No Lack of Transportation (Non-Medical): No Housing Stability: Low Risk (08/18/2024) Received from [facility] Housing Stability Vital Sign Unable to Pay for Housing in the Last Year: No Number of Times Moved in the Last Year: 0 Homeless in the Last Year: No SCREENINGS [place] Coma Scale Best Eye Response: Spontaneous Best [...] and oriented (more content not included)... Normal [facility] Emergency Department Summary on 12-03-2024 Emergency Department Summary [facility] Medical Records Department [address] [place] [address] Emergency Department Summary 12/03/24 MR#: [id number] Acct: [id number] Name: KATHERYN CHINO Rep #: [id number] : 1945 79 From: Damir Mckee MD PCP: Dr. Todd Velasquez SrAnoop, DO Status:REG ER Location: ED HPI History [...] Unobtainable: du (more content not included)... Normal [place] Eosinophil percentageOrdered By: Damir Mckee on 12-03-2024 Eosinophils/100 WBC (Bld) 0.0 % 0-5 [place] Erythrocyte distribution wid th (RBC) [Ratio]Ordered By: Damir Mckee on 12-03-2024 Erythrocyte distribution width (RBC) [Entitic vol] 43.0 fL 35.1-43.9 [place] Erythrocyte distribution wid th ratioOrdered By: Damir Mckee on 12-03-2024 Erythrocyte distribution width (RBC) [Ratio] 13.2 % 11.6-14.6 [place] Erythrocyte distribution wid th standard deviationOrdered By: Damir Mckee on 12-03-2024 Erythrocyte distribution width (RBC) [Ratio] 43.0 fl 35.1-43.9 [place] Estimated glomerular filtrat ion rate (GFR) AmericanOrdered By: Damir Mckee on 12-03-2024 Estimated GFR (MDRD) Amer 116 mL/min >60 [place] Comment on above: GFR Calc Estimation of creatinine ryan aranceOrdered By: Damir Mckee on 12-03-2024 Estimated Creatinine Clearance Calc 63.94 ml/min [place] Glomerular filtration rate ( GFR) estimationOrdered By: Damir Mckee on 12-03-2024 Estimated GFR (MDRD) Non-Af Amer 96 mL/min >60 [place] Comment on above: Non- GFR Calc GFR/1.73 sq M.predicted among non-blacks MDRD (S/P/Bld) [Vol rate/Area] 96 mL/min/{1.73_m2} >60 [place] Comment on above: Non- GFR Calc Glucose measurementOrdered B y: Damir Mckee on 12-03-2024 Glucose [Mass/Vol] 141 mg/dL High 74-106 [facility] Comment on above: Fasting Glucose resu lt greater than or equal to 126 mg/dL suggests DIABETES MELLITUS per A.D.A. criteria. Hematocrit Auto (Bld) [Volum e fraction]Ordered By: Damir Mckee on 12-03-2024 Hematocrit (Bld) [Volume fraction] 36.5 % Low 37-47 [place] Hemoglobin measurementOrdere d By: Damir Mckee on 12-03-2024 Hemoglobin (Bld) [Mass/Vol] 11.9 g/dL Low 12.0-15.0 [place] Immature granulocytes/100 WB C Auto (Bld)Ordered By: Damir Mckee on 12-03-2024 Immature granulocytes/100 WBC (Bld) 0.400 % 0.0-0.9 [place] Comment on above: IG% - Immature Granu locytes (promyelocytes, myelocytes and metamyelocytes) > 1% indicates that a LEFT SHIFT is Present. LACTIC ACID WITH REFLEXon Lactate [Moles/Vol] 1.6 mmol/L Normal 0.5-2.2 [facility] Comment on above: Performed By: #### L [id number] ####Hydroelectric Plant Structural Engineer: JACKI MANCILLA ([id number])[facility] ([address] Laboratory - Chemistry and C hemistry - challengeon 12-03-2024 Lactate [Moles/Vol] 1.6 mmol/L 0.5 - 2. 2 mmol/L [facility] Laboratory - Drug toxicology on 12-03-2024 Phenytoin [Mass/Vol] 14.1 ug/mL 10.0 - 20.0 ug/mL [facility] Laboratory - Microbiology an d Antimicrobial susceptibilityon 12-03-2024 FLUAV RNA RUTH+probe Ql (Resp) Not detected Not Detected [facility] FLUBV RNA RUTH+probe Ql (Resp) Not detected Not Detected [facility] RSV RNA RUTH+probe Ql (Resp) Not detected Not Detected [facility] SARS-CoV-2 (COVID-19) RNA RUTH+probe Ql (Resp) Not detected Not Detected [facility] Lactic Acidon 12-03-2024 Lactate [Moles/Vol] 2.8 mmol/L Invalid Interpretation Code 0.4-1.9 [place] Comment on above: Result Comment: Crit ical Result(s) Called at: 17:21:47 12/03/2024 by: ISSAC KEARNEY TO [address] Results read back by same. Performed By: #### L 100.0100, L501.8100, L501.7700, L500.4050 #### [facility] [address] [place], [address] Lactate [Moles/Vol] 4.7 mmol/L Invalid Interpretation Code 0.4-1.9 [place] Comment on above: Order Comment: 211-2 Result Comment: Crit ical Result(s) Called at: 13:02:25 12/03/2024 by: Fauzia Allred to Katia Hackett. Results read back by same. Performed By: #### L 100.0100, L501.8100, L501.7700, L500.4050 #### [facility] [address] [place], [address] Lactic acid measurementOrder ed By: Damir Mckee on 12-03-2024 Lactate [Moles/Vol] 2.8 mmol/L High 0.4-2.0 [facility] Comment on above: Critical Result(s) C alled at: 17:21:47 12/03/2024 by: ISSAC KEARNEY TO [address] Results read back by same. Lymphocytes Auto (Unsp spec) [#/Vol]Ordered By: Damirsharlene Mckee on 12-03-2024 Lymphocytes (Bld) [#/Vol] 0.66 10*3/uL Low 0.83-4.51 [place] Lymphocytes/100 WBC Auto (Un sp spec)Ordered By: Damirsharlene Mckee on 12-03-2024 Lymphocytes/100 WBC (Bld) 4.8 % Low 19-41 [place] MCV (mean corpuscular volume ) determinationOrdered By: [facility] on 12-03-2024 MCV (RBC) [Entitic vol] 89.2 fL 81-99 [facility] Mean corpuscular hemoglobin (MCH) determinationOrdered By: [facility] on 12-03-2024 MCH (RBC) [Entitic mass] 29.1 pg 27.0-32.0 [place] Mean corpuscular hemoglobin concentration (MCHC) determinationOrdered By: [facility] on 12-03-2024 MCHC (RBC) [Mass/Vol] 32.6 g/dL 32-36 [facility] Mean platelet volume determi nationOrdered By: [facility] on 12-03-2024 Platelet mean volume (Bld) [Entitic vol] 11.9 fL 6.2-12.0 [place] Monocyte percentageOrdered B y: [facility] on 12-03-2024 Monocytes/100 WBC (Bld) 4.8 % 0-10 [facility] Neutrophil percentageOrdered By: [facility] on 12-03-2024 Neutrophils/100 WBC (Bld) 89.7 % High 47-70 [place] No Panel InformationOrdered By: Roxanna Perez on 12-03-2024 P [place] -3 degrees [facility] Work Phone: [place] Interval 151 ms [facility] Work Phone: QRS [place] 38 degrees [facility] Work Phone: QRSD Interval 81 ms [employer] Work Phone: QT Interval 370 ms [facility] Work Phone: QTC Interval 453 ms [facility] Work Phone: T Wave [place] 5 degrees [facility] Work Phone: [facility] Work Phone: No Panel Informationon 12-03 Sinus rhythm Borderline T abnormalities, anterior leads Electronically Signed On 12-03-2024 22:55:54 EST by Roxanna [facility] JACKI PERALES [facility] CenterDavid DO - 12/03/2024 IMPRESSION: Sinus rhythm Borderline T abnormalities, anterior leads Electronically Signed On 12-03-2024 22:55:54 EST by RoxannaGreat [facility] Health SystemCombined PowerA[facility] Interpretation and review of laboratory results Normal [facility] Toxicity seen at concentrations >20.0 ug/mL [facility] Interpretation and review of laboratory results Normal [facility] Nucleated red blood cell per centageOrdered By: Damir Mckee on 12-03-2024 Nucleated RBC/100 WBC (Bld) [Ratio] 0 % 0-5 [place] PHENYTOIN TOTALon 12-03-2024 PHENYTOIN, TOTAL 14.1 ug/mL Normal 10.0-20.0 [facility] Comment on above: Result Comment: RD Chu COMMENTS: Toxicity seen at concentrations >20.0 ug/mL Performed By: #### L AB31 ####Hydroelectric Plant Structural Engineer: JACKI MANCILLA ([id number])[facility] ([facility] Phenytoin (Dilantin) Levelon 12-03-2024 PHENYTOIN 2.6 mL Low 10.0-20.0 [place] Comment on above: Performed By: #### L 100.0100, L501.8100, L501.7700, L500.4050 #### [facility] [address] [place], [address] Phenytoin [Mass/Vol]Ordered By: Damir Mckee on 12-03-2024 Phenytoin (Dilantin) Level 2.6 mL Low 10.0-20.0 [place] Platelet countOrdered By: Iker Mckee on 12-03-2024 Platelets (Bld) [#/Vol] 199 10*3/uL 150-450 [place] Potassium measurementOrdered By: Damirsharlene Mckee on 12-03-2024 Potassium [Moles/Vol] 3.3 mmol/L Low 3.5-5.1 [facility] RBC Auto (Bld) [#/Vol]Ordere d By: Damir Mckee on 12-03-2024 RBC (Bld) [#/Vol] 4.09 10*6/uL Low 4.2-5.4 [facility] RESPIRATORY PATHOGENS PANEL BY PCRon [...] Detected ORDER COMMENTS: Methodology: Multiplex PCR Normal [facility] Comment on above: Performed By: #### L [id number], [id number] ####Hydroelectric Plant Structural Engineer: JACKI MANCILLA ([id number])[address] SARS-COV-2, FLU A/B, AND RSV COMBOon 12-03-2024 SARS-CoV-2 (COVID-19) RNA RUTH+probe Ql (Unsp spec) SARS-COV-2 Reference Not Detected Not Detected RESPIRATORY SYNCYTIAL VIRUS Reference Not Detected Not Detected INFLUENZA A (CEPHEID) Reference Not Detected Not Detected INFLUENZA B (CEPHEID) Reference Not Detected Not Detected ORDER COMMENTS: Methodology: real-time, RT-PCR Normal [facility] Comment on above: Performed By: #### L AB15 #### Hydroelectric Plant Structural Engineer: JACKI MANCILLA ([id number]) [facility] ([facility]) [address] [place] [address] SARS-CoV-2, Flu A/B, and RSV Comboon 12-03-2024 Interpretation and review of laboratory results Normal [facility] Methodology: real-ti me, RT-PCR [facility] Serum anion gap measurementO rdered By: Damir Mckee on 12-03-2024 Anion gap [Moles/Vol] 8 mmol/L 5-15 [facility] Serum or plasma calcium jacob urement (mass/volume)Ordered By: [facility] on 12-03-2024 Calcium [Mass/Vol] 7.4 mg/dL Low 8.5-10.1 [facility] Serum or plasma creatinine m easurement (mass/volume)Ordered By: [facility] on 12-03-2024 Creatinine [Mass/Vol] 0.64 mg/dL 0.55-1.02 [facility] Comment on above: The validity of the calculated GFR & GFRAA in patients over 70 years has not been determined. Clinical correlation is essential. Serum or plasma phenytoin le kate (mass/volume)Ordered By: [facility] on 12-03-2024 Phenytoin [Mass/Vol] 2.6 mL Low 10.0-20.0 [facility] Serum or plasma urea nitroge n measurement (mass/volume)Ordered By: [facility] on 12-03-2024 Urea nitrogen [Mass/Vol] 19 mg/dL High 7-18 [place] Sodium levelOrdered By: [facility] on 12-03-2024 Sodium [Moles/Vol] 143 mmol/L 136-145 [facility] URINE CULTUREon 12-03-2024 Bacteria identified Cx Nom (U) URINE CULTURE Reference Normal urogenital devyn present ESCHERICHIA COLI >100,000 CFU/mL Escherichia coli (A) AEROCOCCUS URINAE >100,000 CFU/mL Aerococcus urinae (A) Susceptibility testing not routinely performed except on isolates from blood culture. Aerococcus species are generally susceptible to beta-lactams. Resistance to sulfonamides is common in Aerococcus urinae. Providers should call the [facility] Microbiology Laboratory ([phone]) within 3 days if susceptibility testing is [...] Non-susceptible NO = No Interpretation ] Normal [facility] Comment on above: Performed By: #### L [id number], [id number] #### Hydroelectric Plant Structural Engineer: JACKI MANCILLA ([id number]) [facility] ([facility]) [address] [place] [address] Urinalysis complete panel (U )on 12-03-2024 Bacteria LM.HPF (Urine sed) [#/Area] Loaded Abnormal Negative /HPF [facility] Bilirubin Ql (U) Negative Negative mg/dL [facility] Clarity (U) Extra Turbid Abnormal Clear [facility] Color (U) Yellow Lt. Yellow [facility] Epithelial cells.squamous LM.HPF (Urine sed) [#/Area] 11-25 Abnormal [facility] Glucose Ql (U) Normal Normal (<70) mg/dL [facility] Hemoglobin Ql (U) 0.06 mg/dL Abnormal Negative [facility] Hyaline casts Auto (Urine sed) [#/Area] Negative Negative /LPF [facility] Interpretation and review of laboratory results Abnormal [facility] Ketones (U) [Mass/Vol] Trace Abnormal Negat clay mg/dL [facility] Leukocyte clumps LM.HPF (Urine sed) [#/Area] Many Abnormal Negative /HPF [facility] Leukocyte esterase Test strip Ql (U) 500 Abnormal Negative James/uL [facility] Mucus LM.HPF (Urine sed) [#/Area] Few Negative /LPF [facility] Nitrite Ql (U) Negative Negative [facility] Non-Squamous Epithalial Cells, Urine 3-5 Abnormal Negative /HPF [facility] pH (U) 6.0 [pH] 5.0 - 8.0 pH [facility] Protein (U) [Mass/Vol] 100 mg/dL Abnormal Negative [facility] RBC LM.HPF (Urine sed) [#/Area] 11-25 Abnormal [facility] Specific gravity (U) [Rel density] High 1.005 - 1.030 [facility] Urobilinogen (U) [Mass/Vol] Normal Normal (0-1) mg/dL [facility] WBC LM.HPF (Urine sed) [#/Area] /[HPF] Abnormal [facility] Valproate levelOrdered By: Daniel Mckee on 12-03-2024 Valproic Acid (Depakene) Level 47 ug/mL Low 50-100 [place] Valproic Acid (Depakene) Lev maribell 12-03-2024 VALPROIC ACID 47 ug/mL Low 50-100 [place] Comment on above: Performed By: #### L 100.0100, L501.8100, L501.7700, L500.4050 #### [facility] [address] [place], [place], [address] Vital signsOrdered By: Marian Perez on 12-03-2024 Heart rate 90 /min bpm [facility] Work Phone: White blood cell (WBC) count Ordered By: Damir Mckee on 12-03-2024 WBC (Bld) [#/Vol] 13.8 10*3/uL High 4.4-11.0 [facility] XR Chest Single viewon 12-03 No radiographic evid ence of acute cardiopulmonary process. Report Dictated on Electronically Signed By: Micah Adler MD Electronically Signed Date/Time: 12/03/2024 8:07 PM [facility] Patient Name: KATHERYN YIP : 1945 [...] the spine are present at multiple levels. [facility] Micah Adler MD - 12/03/2024 Patient Name: [...] MD Electronically Signed Date/Time: 12/03/2024 8:[address] [facility] Radiology Study observation (narrative) [facility] XR Chest Single viewOrdered By: Micah Adler on 12-03-2024 [facility] Work Phone: [facility] 12-01-2024 CNPN Telephone (NEEPBA) -------- KATHERYN CHINO ([id number]) 1945 F Date Time Provider Department 12/01/24 JAYANT JIMENEZ During your visit today, we recorded the following information about you: Nabeel Smith 12/01/2024 11:10 AM Signed Provider referred patient to rheumatology. I placed into protal under ref# [id number] Allergies As of Date: 12/01/2024 (No Known [...] mg/spray (0.1 mL) nasal spray Use 1 [place] in the nose as needed for seizures [...] Encounter Status:Closed by NABEEL SMITH on 12/01/24 [facility] CNPN Telephone ([id number]) -------- KATHERYN CHINO ([id number]) 1945 F Date Time Provider Department 12/01/24 [...] report. Consult and DEXA report faxed via [facility]ive[facility]Fax to: [facility] PH: [phone] FAX : [phone] Confirmation received. 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 Reason for Visit: Sequins Slinger - Other [1882] Prescriptions as of 12/02/2024 - lacosamide (VIMPAT) [...] mg/spray (0.1 mL) nasal spray Use 1 [place] in the nose as needed for seizures [...] Status:Closed by SILVIA ROGERS on 12/02/24 Normal [facility] BD DXA - AXIAL SKELETONon BD DXA [...] years, Gender: Female SCANNER INFORMATION: DXA Model: Jiberish - [id number] Date Scanned: 11/26/2024 11:08 AM CLINICAL HISTORY: DIAGNOSTIC 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 osteoporosis senior living (current) use of other agents affecting estrogen [...] had a previous bone density in the [facility] or the previous bone density was performed on a different DXA machine (new, updated model or different location) within the [facility]. VERTEBRAL FRACTURE ASSESSMENT Not performed. TRABECULAR [...] FOR MORE INFORMATION ABOUT DIAGNOSIS AND TREATMENT: [facility] for Osteoporosis and Metabolic Bone Disease:? www.ccf.org/arthritis/os javed National Osteoporosis Foundation:? www.nof.org International Society of Clinical Densitometry www.iscd.org Analog Design Engineer: PSCNo Transcribe Date/Time: Nov 29 2024 2:05P Dictated by : ALEXA CRUZ MD This examination was interpreted and the report reviewed and electronically signed by: ALEXA CRUZ MD on Nov 29 2024 2:06PM EST [id number] Normal [facility] BD DXA TRABECLR BONE SCORE ( [...] years, Gender: Female SCANNER INFORMATION: DXA Model: Jiberish - TestObject [id number] Date Scanned: 11/26/2024 11:08 AM CLINICAL HISTORY: DIAGNOSTIC 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 osteoporosis senior living (current) use of other agents affecting estrogen [...] had a previous bone density in the [facility] or the previous bone density was performed on a different DXA machine (new, updated model or different location) within the [facility]. VERTEBRAL FRACTURE ASSESSMENT Not performed. TRABECULAR [...] FOR MORE INFORMATION ABOUT DIAGNOSIS AND TREATMENT: [facility]:? www.ccf.org/arthritis/os javed National Osteoporosis Foundation:? www.nof.org International Society of Clinical Densitometry www.iscd.org Analog Design Engineer: SUNSHINE Transcribe Date/Time: Nov 29 2024 2:05P Dictated by : ALEXA CRUZ MD This examination was interpreted and the report reviewed and electronically signed by: ALEXA CRUZ MD on Nov 29 2024 2:06PM EST [id number] -[id number] Normal [facility] Phenytoin (Dilantin) Levelon 11-14-2024 PHENYTOIN 8.8 mL Low 10.0-20.0 [place] Comment on above: Order Comment: [id number] [id number] Performed By: #### L 100.0100, L501.8100, L501.7700, L500.4050 #### [facility] [address] [place], [address] Phenytoin [Mass/Vol]Ordered By: Todd Velasquez on 11-14-2024 Phenytoin (Dilantin) Level 8.8 mL Low 10.0-20.0 [place] Serum or plasma phenytoin le kate (mass/volume)Ordered By: Todd Velasquez on 11-14-2024 Phenytoin [Mass/Vol] 8.8 mL Low 10.0-20.0 [facility] CNPNon 11-11-2024 CNPN Telephone (NEUSES) -------- KATHERYN CHINO ([id number]) 1945 F Date Time Provider Department 11/11/24 JAYANT JIMENEZ During your visit today, we recorded the following information about you: Franchesca Arana 11/11/2024 10:48 AM Signed Received Seizure monitoring report from [facility]. Uploaded to [employer]. Silvia Rogers RN 11/11/2024 11:04 AM Signed [...] mg/spray (0.1 mL) nasal spray Use 1 Chitina in the nose as needed for seizures [...] Encounter Status:Closed by SILVIA ROGERS on 11/11/24 [facility] Kuldip 11-10-2024 DWAYNE Telephone (NE50MN) -------- KATHERYN CHINO ([id number]) 1945 F Date Time Provider Department 11/10/24 JAYANT JIMENEZ NE50MN During your visit today, we recorded the following information about you: Mildred Mendez 11/10/2024 1:45 PM Signed Seizure activity: Name of Caller : [facility] Relationship to patient: Caregiver Contact phone number: [phone] Date of seizure: 11/07/24 Duration: 20 minutes [...] rescue medication, nurse is requesting. Forwarded to [facility] [address] [place] for review. MEGA Christianson Kelly, APRN.DWAYNE 11/10/2024 [...] sent to their facility. MEGA Christianson Kelly, APRN.WELDING MACHINE SETTER 11/11/2024 6:05 AM Signed The following approved medication requests have been transmitted electronically. Requested Prescriptions Signed Prescriptions Disp Refills midazolam (NAYZILAM) 5 mg/spray (0.1 mL) nasal spray 2 Each 0 Sig: Use 1 Chitina in the nose as needed for seizures lasting longer than 3 minutes for up to 90 days. May repeat dose in alternate nostril after 10 minutes based on response and tolerability. Authorizing Provider: ARTIS HAMILTON lacosamide (VIMPAT) 50 mg tab 42 tablet 0 Sig: Take 1 tablet by mouth daily at bedtime for 7 days, THE (more content not included)... Normal [facility] Albumin to globulin ratioOrd ered By: [facility] on 11-08-2024 Albumin/Globulin [Mass ratio] 0.8 {ratio} Low 0.9-2.4 [place] Bilirubin, totalOrdered By: [facility] on 11-08-2024 Bilirubin [Mass/Vol] 0.40 mg/dL 0.20-1.00 [facility] Comment on above: For patients on eltr ombopag therapy, use of Dimension [place] TBIL is not recommended. Blood urea nitrogen (BUN)/cr eatinine ratioOrdered By: [facility] on 11-08-2024 Urea nitrogen/Creatinine [Mass ratio] 24.0 mg/mg High 10- [place] CBC-Complete Blood Cnt No Di ffon 11-08-2024 Erythrocyte distribution width (RBC) [Ratio] 13.2 % Normal 11.6-14.6 [place] Comment on above: Performed By: #### L 100.0100, L501.8100, L501.7700, L500.4050 #### [facility] [address] [place], [address] Hematocrit (Bld) [Volume fraction] 37.8 % Normal 37-47 [place] Comment on above: Performed By: #### L 100.0100, L501.8100, L501.7700, L500.4050 #### [facility] [address] [place], [address] Hemoglobin (Bld) [Mass/Vol] 11.9 g/dL Low 12.0-15.0 [place] Comment on above: Performed By: #### L 100.0100, L501.8100, L501.7700, L500.4050 #### [facility] [address] [place], [address] MCH (RBC) [Entitic mass] 28.2 pg Normal 27.0-32.0 [place] Comment on above: Performed By: #### L 100.0100, L501.8100, L501.7700, L500.4050 #### [facility] [address] [place], [address] MCHC (RBC) [Mass/Vol] 31.5 g/dL Low 32-36 [facility] Comment on above: Performed By: #### L 100.0100, L501.8100, L501.7700, L500.4050 #### [facility] [address] [place], [address] MCV (RBC) [Entitic vol] 89.6 fL Normal 81-99 [facility] Comment on above: Performed By: #### L 100.0100, L501.8100, L501.7700, L500.4050 #### [facility] [address] [place], [address] Platelet mean volume (Bld) [Entitic vol] 12.1 fL High 6.2-12.0 [place] Comment on above: Performed By: #### L 100.0100, L501.8100, L501.7700, L500.4050 #### [facility] [address] [place], [address] Platelets (Bld) [#/Vol] 227 10*3/uL Normal 150-450 [place] Comment on above: Performed By: #### L 100.0100, L501.8100, L501.7700, L500.4050 #### [facility] [address] [place], [address] RBC (Bld) [#/Vol] 4.22 10*6/uL Normal 4.2-5.4 [facility] Comment on above: Performed By: #### L 100.0100, L501.8100, L501.7700, L500.4050 #### [facility] [address] [place], [address] RDW SD 43.1 fl Normal 35.1-43.9 [place] Comment on above: Performed By: #### L 100.0100, L501.8100, L501.7700, L500.4050 #### [facility] [address] [place], [address] WBC (Bld) [#/Vol] 6.4 10*3/uL Normal 4.4-11.0 [facility] Comment on above: Performed By: #### L 100.0100, L501.8100, L501.7700, L500.4050 #### [facility] [address] [place], [address] Carbon dioxide measurementOr dered By: [facility] on 11-08-2024 CO2 [Moles/Vol] 28.0 mmol/L 21.0-32.0 [place] Chloride measurementOrdered By: [facility] on 11-08-2024 Chloride [Moles/Vol] 109 mmol/L High 98-107 [facility] Comprehensive Metabolic Prof ilon 11-08-2024 Albumin [Mass/Vol] 3.7 g/dL Normal 3.2-5.0 [facility] Comment on above: Performed By: #### L 100.0100, L501.8100, L501.7700, L500.4050 #### [facility] [address] [place], [address] Albumin/Globulin [Mass ratio] 0.8 {ratio} Low 0.9-2.4 [place] Comment on above: Performed By: #### L 100.0100, L501.8100, L501.7700, L500.4050 #### [facility] [address] [place], [address] ALK P 141 U/L High 45-117 [place] Comment on above: Performed By: #### L 100.0100, L501.8100, L501.7700, L500.4050 #### [facility] [address] [place], [address] ALT [Catalytic activity/Vol] 17 U/L Normal 13-56 [place] Comment on above: Performed By: #### L 100.0100, L501.8100, L501.7700, L500.4050 #### [facility] [address] [place], [address] AST [Catalytic activity/Vol] 26 U/L Normal 15-37 [place] Comment on above: Performed By: #### L 100.0100, L501.8100, L501.7700, L500.4050 #### [facility] [address] [place], [address] Bilirubin [Mass/Vol] 0.40 mg/dL Normal 0.20-1.00 [facility] Comment on above: Result Comment: For patients on eltrombopag therapy, use of Dimension [place] TBIL is not recommended. Performed By: #### L 100.0100, L501.8100, L501.7700, L500.4050 #### [facility] [address] [place], [address] BUN/CRE 24.0 RATIO High 10-20 [facility] Comment on above: Performed By: #### L 100.0100, L501.8100, L501.7700, L500.4050 #### [facility] [address] [place], [address] CA,Total 9.7 mg/dL Normal 8.5-10.1 [place] Comment on above: Performed By: #### L 100.0100, L501.8100, L501.7700, L500.4050 #### [facility] [address] [place], [address] Chloride [Moles/Vol] 109 mmol/L High 98-107 [facility] Comment on above: Performed By: #### L 100.0100, L501.8100, L501.7700, L500.4050 #### [facility] [address] [place], [address] CO2 [Moles/Vol] 28.0 mmol/L Normal 21.0-32.0 [place] Comment on above: Performed By: #### L 100.0100, L501.8100, L501.7700, L500.4050 #### [facility] [address] [place], [address] Creatinine [Mass/Vol] 0.83 mg/dL Normal 0.55-1.02 [facility] Comment on above: Result Comment: The validity of the calculated GFR GFRAA in patients over 70 years has not been determined. Clinical correlation is essential. Performed By: #### L 100.0100, L501.8100, L501.7700, L500.4050 #### [facility] [address] [place], [address] EST GFR - AA 85 mL/min Normal >60 [place] Comment on above: Result Comment: Afri can Citizen Of [place] GFR Calc Performed By: #### L 100.0100, L501.8100, L501.7700, L500.4050 #### [facility] [address] [place], [address] GAP 3 Low 5-15 [facility] Comment on above: Performed By: #### L 100.0100, L501.8100, L501.7700, L500.4050 #### [facility] [address] [place], [address] GFR/1.73 sq M.predicted among non-blacks MDRD (S/P/Bld) [Vol rate/Area] 71 mL/min/{1.73_m2} Normal >60 [place] Comment on above: Result Comment: Non- GFR Calc Performed By: #### L 100.0100, L501.8100, L501.7700, L500.4050 #### [facility] [address] [place], [address] Globulin (S) [Mass/Vol] 4.6 g/dL High 2.2-4.2 [facility] Comment on above: Performed By: #### L 100.0100, L501.8100, L501.7700, L500.4050 #### [facility] [address] [place], [address] Glucose [Mass/Vol] 79 mg/dL Normal 74-106 [facility] Comment on above: Performed By: #### L 100.0100, L501.8100, L501.7700, L500.4050 #### [facility] [address] [place], [address] Potassium [Moles/Vol] 4.9 mmol/L Normal 3.5-5.1 [facility] Comment on above: Performed By: #### L 100.0100, L501.8100, L501.7700, L500.4050 #### [facility] [address] [place], [address] Sodium [Moles/Vol] 140 mmol/L Normal 136-145 [facility] Comment on above: Performed By: #### L 100.0100, L501.8100, L501.7700, L500.4050 #### [facility] [address] [place], [address] T PROT 8.3 g/dL High 6.4-8.2 [place] Comment on above: Performed By: #### L 100.0100, L501.8100, L501.7700, L500.4050 #### [facility] [address] [place], [address] Urea nitrogen [Mass/Vol] 20 mg/dL High 7-18 [facility] Comment on above: Performed By: #### L 100.0100, L501.8100, L501.7700, L500.4050 #### [facility] [address] [place], [address] Erythrocyte distribution wid th (RBC) [Ratio]Or[facility] Erythrocyte distribution width (RBC) [Entitic vol] 43.1 fL 35.1-43.9 [place] Erythrocyte distribution wid th ratioOrdered By: [facility] on 11-08-2024 Erythrocyte distribution width (RBC) [Ratio] 13.2 % 11.6-14.6 [place] Erythrocyte distribution wid th standard deviationOrdered By: [facility] on 11-08-2024 Erythrocyte distribution width (RBC) [Ratio] 43.1 fl 35.1-43.9 [place] Estimated glomerular filtrat ion rate (GFR) AmericanOrdered By: [facility] on 11-08-2024 Estimated GFR (MDRD) Amer 85 mL/min >60 [place] Comment on above: GFR Calc Glomerular filtration rate ( GFR) estimationOrdered By: [facility] on 11-08-2024 Estimated GFR (MDRD) Non-Af Amer 71 mL/min >60 [place] Comment on above: Non- GFR Calc GFR/1.73 sq M.predicted among non-blacks MDRD (S/P/Bld) [Vol rate/Area] 71 mL/min/{1.73_m2} >60 [place] Comment on above: Non- GFR Calc Glucose measurementOrdered B y: [facility] on 11-08-2024 Glucose [Mass/Vol] 79 mg/dL 74-106 [facility] Hematocrit Auto (Bld) [Volum e fraction]Ordered By: [facility] on 11-08-2024 Hematocrit (Bld) [Volume fraction] 37.8 % 37-47 [place] Hemoglobin measurementOrdere d By: [facility] on 11-08-2024 Hemoglobin (Bld) [Mass/Vol] 11.9 g/dL Low 12.0-15.0 [facility] - Chemistry and C hemistry - challengeOrdered By: [facility] on 11-08-2024 AST [Catalytic activity/Vol] 26 U/L 15-37 [place] MCV (mean corpuscular volume ) determinationOrdered By: [facility] on 11-08-2024 MCV (RBC) [Entitic vol] 89.6 fL 81-99 [facility] Mean corpuscular hemoglobin (MCH) determinationOrdered By: [facility] on 11-08-2024 MCH (RBC) [Entitic mass] 28.2 pg 27.0-32.0 [facility] Mean corpuscular hemoglobin concentration (MCHC) determinationOrdered By: [facility] on 11-08-2024 MCHC (RBC) [Mass/Vol] 31.5 g/dL Low 32-36 [facility] Mean platelet volume determi nationOrdered By: [facility] on 11-08-2024 Platelet mean volume (Bld) [Entitic vol] 12.1 fL High 6.2-12.0 [place] Phenytoin (Dilantin) Levelon 11-08-2024 PHENYTOIN 7.9 mL Low 10.0-20.0 [place] Comment on above: Order Comment: [id number] Performed By: #### L 100.0100, L501.8100, L501.7700, L500.4050 #### [facility] [place], [address] Phenytoin [Mass/Vol]Ordered By: [facility] on 11-08-2024 Phenytoin (Dilantin) Level 7.9 mL Low 10.0-20.0 [place] Platelet countOrdered By: [facility] Platelets (Bld) [#/Vol] 227 10*3/uL 150-450 [place] Potassium measurementOrdered By: [facility] on 11-08-2024 Potassium [Moles/Vol] 4.9 mmol/L 3.5-5.1 [facility] RBC Auto (Bld) [#/Vol]Ordere d By: [facility] on 11-08-2024 RBC (Bld) [#/Vol] 4.22 10*6/uL 4.2-5.4 [facility] Serum anion gap measurementO rdered By: [facility] on 11-08-2024 Anion gap [Moles/Vol] 3 mmol/L Low 5-15 [facility] Serum globulin measurementOr dered By: [facility] on 11-08-2024 Globulin (S) [Mass/Vol] 4.6 g/dL High 2.2-4.2 [facility] Serum or plasma alanine ignacio otransferase (ALT) measurementOrdered By: [facility] on 11-08-2024 ALT [Catalytic activity/Vol] 17 U/L 13-56 [place] Serum or plasma albumin jacob urement (mass/volume)Ordered By: [facility] on 11-08-2024 Albumin [Mass/Vol] 3.7 g/dL 3.2-5.0 [facility] Serum or plasma alkaline phillip sphatase measurementOrdered By: [facility] on 11-08-2024 ALP [Catalytic activity/Vol] 141 U/L High 45-117 [place] Serum or plasma calcium jacob urement (mass/volume)Ordered By: [facility] on 11-08-2024 Calcium [Mass/Vol] 9.7 mg/dL 8.5-10.1 [facility] Serum or plasma creatinine m easurement (mass/volume)Ordered By: [facility] on 11-08-2024 Creatinine [Mass/Vol] 0.83 mg/dL 0.55-1.02 [facility] Comment on above: The validity of the calculated GFR & GFRAA in patients over 70 years has not been determined. Clinical correlation is essential. Serum or plasma phenytoin le kate (mass/volume)Ordered By: [facility] Phenytoin [Mass/Vol] 7.9 mL Low 10.0-20.0 [facility] Serum or plasma urea nitroge n measurement (mass/volume)Ordered By: [facility] on 11-08-2024 Urea nitrogen [Mass/Vol] 20 mg/dL High 7-18 [place] Sodium levelOrdered By: [facility] on 11-08-2024 Sodium [Moles/Vol] 140 mmol/L 136-145 [facility] Total proteinOrdered By: [facility] on 11-08-2024 Protein [Mass/Vol] 8.3 g/dL High 6.4-8.2 [facility] Valproate levelOrdered By: [facility] on 11-08-2024 Valproic Acid (Depakene) Level 68 ug/mL 50-100 [place] Valproic Acid (Depakene) Lev maribell 11-08-2024 VALPROIC ACID 68 ug/mL Normal 50-100 [place] Comment on above: Order Comment: [id number] Performed By: #### L 100.0100, L501.8100, L501.7700, L500.4050 #### [facility] [address] [place], [place] [address]all [facility] [place], [address] White blood cell (WBC) count Ordered By: [facility] on 11-08-2024 WBC (Bld) [#/Vol] 6.4 10*3/uL 4.4-11.0 [facility] KATHERYN CHINO ([id number]) 1945 F Date Time Provider Department 11/07/24 JAYANT JIMENEZ NE50MN During your visit today, we recorded the following information about you: Timoteo DOMENICA Yocasta 11/07/2024 3:48 PM Signed General call : Full name of person calling: [facility] room Relationship to patient: Phone # : [...] Encounter Status:Closed by SILVIA ROGERS on 11/10/24 [facility] Absolute neutrophil countOrd ered By: Todd Velasquez on 09-29-2024 Neutrophils (Bld) [#/Vol] 3.3 10*3/uL 2.0-7.7 [place] Albumin to globulin ratioOrd ered By: Todd Velasquez on 09-29-2024 Albumin/Globulin [Mass ratio] 0.7 {ratio} Low 0.9-2.4 [place] Basophil percentageOrdered B y: Todd Velasquez on 09-29-2024 Basophils/100 WBC (Bld) 0.7 % 0-1 [facility] Bilirubin, totalOrdered By: Todd Velasquez on 09-29-2024 Bilirubin [Mass/Vol] 0.30 mg/dL 0.20-1.00 [facility] Comment on above: For patients on eltr ombopag therapy, use of Dimension [place] TBIL is not recommended. Blood urea nitrogen (BUN)/cr eatinine ratioOrdered By: Todd Velasquez on 09-29-2024 Urea nitrogen/Creatinine [Mass ratio] 23.9 mg/mg High 10-20 [place] CBC W/Diff, Automatedon 09-14 Absolute Lymph 2.51 X10 3/uL Normal 0.83-4.51 [place] Comment on above: Order Comment: -2 Performed By: #### L 100.0100, L501.8100, L501.7700, L500.4050 #### [facility] [address] [place], [address] Absolute Neut 3.3 X10 3/uL Normal 2.0-7.7 [place] Comment on above: Order Comment: 211-2 Performed By: #### L 100.0100, L501.8100, L501.7700, L500.4050 #### [facility] [address] [place], [address] Basophils/100 WBC (Bld) 0.7 % Normal 0-1 [facility] Comment on above: Order Comment: -2 Performed By: #### L 100.0100, L501.8100, L501.7700, L500.4050 #### [facility] [address] [place], [address] Eosinophils/100 WBC (Bld) 1.8 % Normal 0-5 [place] Comment on above: Order Comment: 211-2 Performed By: #### L 100.0100, L501.8100, L501.7700, L500.4050 #### [facility] [address] [place], [address] Erythrocyte distribution width (RBC) [Ratio] 13.7 % Normal 11.6-14.6 [place] Comment on above: Order Comment: -2 Performed By: #### L 100.0100, L501.8100, L501.7700, L500.4050 #### [facility] [address] [place], [address] Hematocrit (Bld) [Volume fraction] 34.3 % Low 37-47 [place] Comment on above: Order Comment: -2 Performed By: #### L 100.0100, L501.8100, L501.7700, L500.4050 #### [facility] [address] [place], [address] Hemoglobin (Bld) [Mass/Vol] 10.7 g/dL Low 12.0-15.0 [place] Comment on above: Order Comment: -2 Performed By: #### L 100.0100, L501.8100, L501.7700, L500.4050 #### [facility] [address] [place], [address] IG% 0.300 Normal 0.0-0.9 [place] Comment on above: Order Comment: 211-2 Result Comment: IG% - Immature Granulocytes (promyelocytes, myelocytes and metamyelocytes) > 1% indicates that a LEFT SHIFT is Present. Performed By: #### L 100.0100, L501.8100, L501.7700, L500.4050 #### [facility] [address] [place], [address] Lymphocytes/100 WBC (Bld) 37.1 % Normal 19-41 [place] Comment on above: Order Comment: 211-2 Performed By: #### L 100.0100, L501.8100, L501.7700, L500.4050 #### [facility] [address] [place], [address] MCH (RBC) [Entitic mass] 29.2 pg Normal 27.0-32.0 [place] Comment on above: Order Comment: 211-2 Performed By: #### L 100.0100, L501.8100, L501.7700, L500.4050 #### [facility] [address] [place], [address] MCHC (RBC) [Mass/Vol] 31.2 g/dL Low 32-36 [facility] Comment on above: Order Comment: 211-2 Performed By: #### L 100.0100, L501.8100, L501.7700, L500.4050 #### [facility] [address] [place], [address] MCV (RBC) [Entitic vol] 93.7 fL Normal 81-99 [facility] Comment on above: Order Comment: 211-2 Performed By: #### L 100.0100, L501.8100, L501.7700, L500.4050 #### [facility] [address] [place], [address] Monocytes/100 WBC (Bld) 12.1 % High 0-10 [facility] Comment on above: Order Comment: 211-2 Performed By: #### L 100.0100, L501.8100, L501.7700, L500.4050 #### [facility] [address] [place], [address] Neutrophils/100 WBC (Bld) 48.0 % Normal 47-70 [facility] Comment on above: Order Comment: 211-2 Performed By: #### L 100.0100, L501.8100, L501.7700, L500.4050 #### [facility] [address] [place], [address] Nucleated RBC (Bld) [#/Vol] 0 10*3/uL Normal 0-5 [facility] Comment on above: Order Comment: 211-2 Performed By: #### L 100.0100, L501.8100, L501.7700, L500.4050 #### [facility] [address] [place], [address] Platelet mean volume (Bld) [Entitic vol] 11.8 fL Normal 6.2-12.0 [facility] Comment on above: Order Comment: 211-2 Performed By: #### L 100.0100, L501.8100, L501.7700, L500.4050 #### [facility] [address] [place], [address] Platelets (Bld) [#/Vol] 195 10*3/uL Normal 150-450 [facility] Comment on above: Order Comment: 211-2 Performed By: #### L 100.0100, L501.8100, L501.7700, L500.4050 #### [facility] [address] [place], [address] RBC (Bld) [#/Vol] 3.66 10*6/uL Low 4.2-5.4 [facility] Comment on above: Order Comment: 211-2 Performed By: #### L 100.0100, L501.8100, L501.7700, L500.4050 #### [facility] [address] [place], [address] RDW SD 46.8 fl High 35.1-43.9 [facility] Comment on above: Order Comment: 211-2 Performed By: #### L 100.0100, L501.8100, L501.7700, L500.4050 #### [facility] [address] [place], [address] WBC (Bld) [#/Vol] 6.8 10*3/uL Normal 4.4-11.0 [facility] Comment on above: Order Comment: 211-2 Performed By: #### L 100.0100, L501.8100, L501.7700, L500.4050 #### [facility] [address] [place], [address] Carbon dioxide measurementOr dered By: Todd Velasquez on 09-29-2024 CO2 [Moles/Vol] 24.0 mmol/L 21.0-32.0 [place] Chloride measurementOrdered By: Todd Velasquez on 09-29-2024 Chloride [Moles/Vol] 110 mmol/L High 98-107 [facility] Comprehensive Metabolic Prof ilon 09-29-2024 Albumin [Mass/Vol] 2.9 g/dL Low 3.2-5.0 [facility] Comment on above: Order Comment: 211-2 Performed By: #### L 100.0100, L501.8100, L501.7700, L500.4050 #### [facility] [address] [place], [address] Albumin/Globulin [Mass ratio] 0.7 {ratio} Low 0.9-2.4 [facility] Comment on above: Order Comment: 211-2 Performed By: #### L 100.0100, L501.8100, L501.7700, L500.4050 #### [facility] [address] [place], [address] ALK P 114 U/L Normal 45-117 [facility] Comment on above: Order Comment: 211-2 Performed By: #### L 100.0100, L501.8100, L501.7700, L500.4050 #### [facility] [address] [place], [address] ALT [Catalytic activity/Vol] 18 U/L Normal 13-56 [facility] Comment on above: Order Comment: 211-2 Performed By: #### L 100.0100, L501.8100, L501.7700, L500.4050 #### [facility] [address] [place], [address] AST [Catalytic activity/Vol] 24 U/L Normal 15-37 [facility] Comment on above: Order Comment: 211-2 Performed By: #### L 100.0100, L501.8100, L501.7700, L500.4050 #### [facility] [address] [place], [address] Bilirubin [Mass/Vol] 0.30 mg/dL Normal 0.20-1.00 [facility] Comment on above: Order Comment: 211-2 Result Comment: For patients on eltrombopag therapy, use of Dimension [place] TBIL is not recommended. Performed By: #### L 100.0100, L501.8100, L501.7700, L500.4050 #### [facility] [address] [place], [address] BUN/CRE 23.9 RATIO High 10-20 [facility] Comment on above: Order Comment: 211-2 Performed By: #### L 100.0100, L501.8100, L501.7700, L500.4050 #### [facility] [address] [place], [address] CA,Total 9.2 mg/dL Normal 8.5-10.1 [facility] Comment on above: Order Comment: 211-2 Performed By: #### L 100.0100, L501.8100, L501.7700, L500.4050 #### [facility] [address] [place], [address] Chloride [Moles/Vol] 110 mmol/L High 98-107 [facility] Comment on above: Order Comment: Performed By: #### L 100.0100, L501.8100, L501.7700, L500.4050 #### [facility] [address] [place], [address] CO2 [Moles/Vol] 24.0 mmol/L Normal 21.0-32.0 [facility] Comment on above: Order Comment: Performed By: #### L 100.0100, L501.8100, L501.7700, L500.4050 #### [facility] [address] [place], [address] Creatinine [Mass/Vol] 0.80 mg/dL Normal 0.55-1.02 [facility] Comment on above: Order Comment: Result Comment: The validity of the calculated GFR GFRAA in patients over 70 years has not been determined. Clinical correlation is essential. Performed By: #### L 100.0100, L501.8100, L501.7700, L500.4050 #### [facility] [address] [place], [address] EST GFR - AA 90 mL/min Normal >60 [facility] Comment on above: Order Comment: Result Comment: Afri can Citizen Of [place] GFR Calc Performed By: #### L 100.0100, L501.8100, L501.7700, L500.4050 #### [facility] [address] [place], [address] GAP 6 Normal 5-15 [facility] Comment on above: Order Comment: Performed By: #### L 100.0100, L501.8100, L501.7700, L500.4050 #### [facility] [address] [place], [address] GFR/1.73 sq M.predicted among non-blacks MDRD (S/P/Bld) [Vol rate/Area] 74 mL/min/{1.73_m2} Normal >60 [facility] Comment on above: Order Comment: 211-2 Result Comment: Non- GFR Calc Performed By: #### L 100.0100, L501.8100, L501.7700, L500.4050 #### [facility] [address] [place], [address] Globulin (S) [Mass/Vol] 4.0 g/dL Normal 2.2-4.2 [facility] Comment on above: Order Comment: 211-2 Performed By: #### L 100.0100, L501.8100, L501.7700, L500.4050 #### [facility] [address] [place], [address] Glucose [Mass/Vol] 91 mg/dL Normal 74-106 [facility] Comment on above: Order Comment: 211-2 Performed By: #### L 100.0100, L501.8100, L501.7700, L500.4050 #### [facility] [address] [place], [address] Potassium [Moles/Vol] 4.3 mmol/L Normal 3.5-5.1 [facility] Comment on above: Order Comment: 211-2 Performed By: #### L 100.0100, L501.8100, L501.7700, L500.4050 #### [facility] [address] [place], [address] Sodium [Moles/Vol] 140 mmol/L Normal 136-145 [facility] Comment on above: Order Comment: 211-2 Performed By: #### L 100.0100, L501.8100, L501.7700, L500.4050 #### [facility] [address] [place], [address] T PROT 6.9 g/dL Normal 6.4-8.2 [facility] Comment on above: Order Comment: 211-2 Performed By: #### L 100.0100, L501.8100, L501.7700, L500.4050 #### [facility] [address] [place], [address] Urea nitrogen [Mass/Vol] 19 mg/dL High 7-18 [facility] Comment on above: Order Comment: 211-2 Performed By: #### L 100.0100, L501.8100, L501.7700, L500.4050 #### [facility] [address] [place], [address] Eosinophil percentageOrdered By: Todd Velasquez on 09-29-2024 Eosinophils/100 WBC (Bld) 1.8 % 0-5 [facility] Erythrocyte distribution wid th (RBC) [Ratio]Ordered By: Todd Velasquez on 09-29-2024 Erythrocyte distribution width (RBC) [Entitic vol] 46.8 fL High 35.1-43.9 [facility] Erythrocyte distribution wid th ratioOrdered By: Todd Velasquez on 09-29-2024 Erythrocyte distribution width (RBC) [Ratio] 13.7 % 11.6-14.6 [facility] Estimated glomerular filtrat ion rate (GFR) AmericanOrdered By: Todd Velasquez on 09-29-2024 Estimated GFR (MDRD) Amer 90 mL/min >60 [facility] Comment on above: GFR Calc Glomerular filtration rate ( GFR) estimationOrdered By: Todd Velasquez on 09-29-2024 Estimated GFR (MDRD) Non-Af Amer 74 mL/min >60 [facility] Comment on above: Non- GFR Calc Glucose measurementOrdered B y: Todd Velasquez on 09-29-2024 Glucose [Mass/Vol] 91 mg/dL 74-106 [facility] Hematocrit Auto (Bld) [Volum e fraction]Ordered By: Todd Velasquez on 09-29-2024 Hematocrit (Bld) [Volume fraction] 34.3 % Low 37-47 [facility] Hemoglobin measurementOrdere d By: Todd Velasquez on 09-29-2024 Hemoglobin (Bld) [Mass/Vol] 10.7 g/dL Low 12.0-15.0 [facility] Immature granulocytes/100 WB C Auto (Bld)Ordered By: Todd Velasquez on 09-29-2024 Immature granulocytes/100 WBC (Bld) 0.300 % 0.0-0.9 [facility] Comment on above: IG% - Immature Granu locytes (promyelocytes, myelocytes and metamyelocytes) > 1% indicates that a LEFT SHIFT is Present. Laboratory - Chemistry and C hemistry - challengeOrdered By: Todd Velasquez on 09-29-2024 AST [Catalytic activity/Vol] 24 U/L 15-37 [facility] Lymphocytes Auto (Unsp spec) [#/Vol]Ordered By: Todd Velasquez on 09-29-2024 Lymphocytes (Bld) [#/Vol] 2.51 10*3/uL 0.83-4.51 [facility] Lymphocytes/100 WBC Auto (Un sp spec)Ordered By: Todd Velasquez on 09-29-2024 Lymphocytes/100 WBC (Bld) 37.1 % 19-41 [facility] MCV (mean corpuscular volume ) determinationOrdered By: Todd Velasquez on 09-29-2024 MCV (RBC) [Entitic vol] 93.7 fL 81-99 [facility] Mean corpuscular hemoglobin (MCH) determinationOrdered By: Todd Velasquez on 09-29-2024 MCH (RBC) [Entitic mass] 29.2 pg 27.0-32.0 [facility] Mean corpuscular hemoglobin concentration (MCHC) determinationOrdered By: Todd Velasquez on 09-29-2024 MCHC (RBC) [Mass/Vol] 31.2 g/dL Low 32-36 [facility] Mean platelet volume determi nationOrdered By: Todd Velasquez on 09-29-2024 Platelet mean volume (Bld) [Entitic vol] 11.8 fL 6.2-12.0 [facility] Monocyte percentageOrdered B y: Todd Velasquez on 09-29-2024 Monocytes/100 WBC (Bld) 12.1 % High 0-10 [facility] Neutrophil percentageOrdered By: Todd Velasquez on 09-29-2024 Neutrophils/100 WBC (Bld) 48.0 % 47-70 [facility] Nucleated red blood cell per centageOrdered By: Todd Velasquez on 09-29-2024 Nucleated RBC/100 WBC (Bld) [Ratio] 0 % 0-5 [facility] Phenytoin (Dilantin) Levelon 09-29-2024 PHENYTOIN 14.0 mL Normal 10.0-20.0 [facility] Comment on above: Order Comment: 384-6 4588 Performed By: #### L 100.0100, L501.8100, L501.7700, L500.4050 #### [facility] [address] [place] [address], [address] Phenytoin [Mass/Vol]Ordered By: Todd Velasquez on 09-29-2024 Phenytoin (Dilantin) Level 14.0 mL 10.0-20.0 [facility] Platelet countOrdered By: Whitley on 09-29-2024 Platelets (Bld) [#/Vol] 195 10*3/uL 150-450 [facility] Potassium measurementOrdered By: Todd Velasquez on 09-29-2024 Potassium [Moles/Vol] 4.3 mmol/L 3.5-5.1 [facility] RBC Auto (Bld) [#/Vol]Ordere d By: Todd Velasquez on 09-29-2024 RBC (Bld) [#/Vol] 3.66 10*6/uL Low 4.2-5.4 [facility] Serum anion gap measurementO rdered By: Todd Velasquez on 09-29-2024 Anion gap [Moles/Vol] 6 mmol/L 5-15 [facility] Serum globulin measurementOr dered By: Todd Velasquez on 09-29-2024 Globulin (S) [Mass/Vol] 4.0 g/dL 2.2-4.2 [facility] Serum or plasma alanine ignacio otransferase (ALT) measurementOrdered By: Todd Velasquez on 09-29-2024 ALT [Catalytic activity/Vol] 18 U/L 13-56 [facility] Serum or plasma albumin jacob urement (mass/volume)Ordered By: Todd Velasquez on 09-29-2024 Albumin [Mass/Vol] 2.9 g/dL Low 3.2-5.0 [facility] Serum or plasma alkaline phillip sphatase measurementOrdered By: Todd Velasquez on 09-29-2024 ALP [Catalytic activity/Vol] 114 U/L 45-117 [facility] Serum or plasma calcium jacob urement (mass/volume)Ordered By: Todd Velasquez on 09-29-2024 Calcium [Mass/Vol] 9.2 mg/dL 8.5-10.1 [facility] Serum or plasma creatinine m easurement (mass/volume)Ordered By: Todd Velasquez on 09-29-2024 Creatinine [Mass/Vol] 0.80 mg/dL 0.55-1.02 [facility] Comment on above: The validity of the calculated GFR & GFRAA in patients over 70 years has not been determined. Clinical correlation is essential. Serum or plasma urea nitroge n measurement (mass/volume)Ordered By: Todd Velasquez on 09-29-2024 Urea nitrogen [Mass/Vol] 19 mg/dL High 7-18 [facility] Sodium levelOrdered By: Todd Velasquez on 09-29-2024 Sodium [Moles/Vol] 140 mmol/L 136-145 [facility] Total proteinOrdered By: Ignacia Velasquez on 09-29-2024 Protein [Mass/Vol] 6.9 g/dL 6.4-8.2 [facility] Valproate levelOrdered By: Barbara Velasquez on 09-29-2024 Valproic Acid (Depakene) Level 87 ug/mL 50-100 [facility] Valproic Acid (Depakene) Lev maribell 09-29-2024 VALPROIC ACID 87 ug/mL Normal 50-100 [facility] Comment on above: Order Comment: 585-5 1513 Performed By: #### L 100.0100, L501.8100, L501.7700, L500.4050 #### [facility] [address] [place], [place], [address] White blood cell (WBC) count Ordered By: Todd Velasquez on 09-29-2024 WBC (Bld) [#/Vol] 6.8 10*3/uL 4.4-11.0 [facility] Ammoniaon 09-26-2024 Ammonia (P) [Moles/Vol] 41.0 umol/L High [facility] Comment on above: Order Comment: 211-2 Performed By: #### L 100.0100, L501.8100, L501.7700, L500.4050 #### [facility] [address] [place], [address] CNPNon 09-26-2024 CNPN Telephone (NE50CF) -------- KATHERYN CHINO ([id number]) 1945 F Date Time Provider Department 09/26/24 JAYANT JIMENEZ NE50MN During your visit today, we recorded the following information about you: Sherrell Bojorquez RN 09/26/2024 1:14 PM Signed Per patient's nurseKatia - recent labs are trough No ETH level completed Current ASMs: PHT 100 mg BID VPA 750 mg TID ETH 250 mg BID Forwarded to [address] for review/recommendation Sherrell Bojorquez RN Per MALCOLM of 09/24/2024 w/Dr. Jimenez The doses listed on facility paperwork are different than what was listed on discharge summary at [facility]. Called the facility and confirmed the [...] for Visit: Outside Lab Results [753] Cmt: [facility] Home Visit Diagnosis:Intractable epilepsy without status epilepticus, unspecified epilepsy type (HCC) [G40.919] Order(s):valproic acid (DEPAKENE) 250 mg/5 mL syrupTake 10 mL by mouth three times a day.Disp: 8359 mLRfl: 1 Prescriptions as of 09/26/2024 - [...] once daily. (more content not included)... Normal [facility] Phenytoin (Dilantin) Levelon 09-26-2024 PHENYTOIN 15.4 mL Normal 10.0-20.0 [facility] Comment on above: Order Comment: -2 Performed By: #### L 100.0100, L501.8100, L501.7700, L500.4050 #### [facility] [address] [place], [place], [id number] Phenytoin [Mass/Vol]Ordered By: Todd Velasquez on 09-26-2024 Phenytoin (Dilantin) Level 15.4 mL 10.0-20.0 [facility] Valproate levelOrdered By: Barbara Velasquez on 09-26-2024 Valproic Acid (Depakene) Level 112 ug/mL High 50-100 [facility] Valproic Acid (Depakene) Lev maribell 09-26-2024 VALPROIC ACID 112 ug/mL High 50-100 [facility] Comment on above: Order Comment: - Performed By: #### L 100.0100, L501.8100, L501.7700, L500.4050 #### [facility] [address] [place], [place], [id number] Venous blood ammonia measure mentOrdered By: Todd Velasquez on 09-26-2024 Ammonia (P) [Moles/Vol] 41.0 umol/L High 11-32 [facility] CNOVon 09-24-2024 CNOV Office Visit (NEEPBA ) -------- KATHERYN CHINO ([id number]) 1945 F Date Time Provider Department 09/24/24 [...] as Ammonia (needs to be done at [facility]) I will order a bone scan called DEXA to see if you have suffered osteoporosis due to penitentiary use of seizure medications. Reduce the morning [...] precautions - No driving in the state [facility] until seizure free for 6 months. Please [...] factor. Jayant Jimenez MD Associate Staff, Epilepsy [facility] September 24, 2024 Office phone: [phone] BONE MINERAL DENSITY PATIENT INSTRUCTIONS Bone mineral [...] Jayant Jimenez MD 09/24/2024 11:19 AM Signed [facility] Patient Name: Katheryn GARCIA Date of : 1945 INITIAL EPILEPSY CLINIC NOTE 09/24/2024 8:00 AM CHIEF COMPLAINT: New Patient and Epilepsy HISTORY OF PRESENT ILLNESS Ms. Chino is a 79 year old female seen in [facility] for initial consultation. [...] with AEDs . She moved to a [place] and she has more suervison with AEDs [...] it lasted ~ 25 mins). Admitted to [facility] where Dilantin and Depakote levels were low. Doses were adjusted- PHT 100 mg TID and VPA 1000 mg TID. Zarontin was continued at 250 mg BID. Interval Seizure History The doses listed on facility paperwork are different than what was listed on discharge summary at [facility]. Called the facility and confirmed the following doses (more content not included)... Normal [facility] Phenytoin (Dilantin) Levelon 09-22-2024 PHENYTOIN 21.7 mL High 10.0-20.0 [facility] Comment on above: Order Comment: 211-2 0730 Performed By: #### L 100.0100, L501.8100, L501.7700, L500.4050 #### [facility] [address] [place], [address] Phenytoin [Mass/Vol]Ordered By: Todd Velasquez on 09-22-2024 Phenytoin (Dilantin) Level 21.7 mL High 10.0-20.0 [facility] KATHERYN CHINO ([id number]) 1945 F Date Time Provider Department 09/19/24 JAYANT JIMENEZ NE50MN During your visit today, we recorded the following information about you: Shelly Adm VillarrealAlexandra 09/19/2024 4:18 PM Signed [facility] PHONE/FAX: [phone] / [phone] COLLECTION DATE AND TIME: 09/19/2024 - 06:15 Uploaded to Silvia Abernathy RN 09/22/2024 12:09 PM Signed See 09/05/24 [...] Status:Closed by SILVIA ROGERS on 09/22/24 Normal [facility] Phenytoin (Dilantin) Levelon 09-19-2024 PHENYTOIN 21.9 mL High 10.0-20.0 [facility] Comment on above: Order Comment: 211-2 1177 Performed By: #### L 100.0100, L501.8100, L501.7700, L500.4050 #### [facility] [address] [place], [place], [address] Phenytoin [Mass/Vol]Ordered By: Todd Velasquez on 09-19-2024 Phenytoin (Dilantin) Level 21.9 mL High 10.0-20.0 [facility] Phenytoin (Dilantin) Levelon 09-17-2024 PHENYTOIN 22.0 mL High 10.0-20.0 [facility] Comment on above: Order Comment: 194 Performed By: #### L 501.7700 #### [facility] [address] [place], [address] Phenytoin [Mass/Vol]Ordered By: Todd Velasquez on 09-17-2024 Phenytoin (Dilantin) Level 22.0 mL High 10.0-20.0 [facility] Phenytoin (Dilantin) Levelon 09-15-2024 PHENYTOIN 25.1 mL High 10.0-20.0 [facility] Comment on above: Order Comment: 211.2 0000 Performed By: #### L 501.8100, L501.7700 #### [facility] [address] [place], [place], [address] Valproic Acid (Depakene) Lev maribell 09-15-2024 VALPROIC ACID 92 ug/mL Normal 50-100 [facility] Comment on above: Order Comment: 211.2 0000 Performed By: #### L 501.8100, L501.7700 #### [facility] [address] [place], [place], [address] CNPAni 09-05-2024 CNPN Telephone (NE50OF) -------- KATHERYN CHINO ([id number]) 1945 F Date Time Provider Department 09/05/24 JAYANT JIMENEZ NE50MN During your visit today, we recorded the following information about you: Alexandra Sainz 09/05/2024 2:22 PM Signed Form received: From (agency / facility / parent): [facility] set up person (if given): Brea Malloy RN Phone #: [phone] Fax # : [phone] Email: n/a Information requested: Review Labs Collected 09/05/2024 - 05:30 for Valproic Acid and Dilantin and approval for medication dosages Patient of Dr. Jimenez Forwarded to nurse. Also uploaded to [facility]. Sherrell Bojorquez RN 09/05/2024 3:11 PM Signed Called [facility] - left message for nursing staff to contact office MEGA Mondragon Elizabeth, RN 09/05/2024 3:11 PM Signed Patient update per nurse Renae, [facility]: - Last known seizure: 08/17/2024 - [...] trough NOV: 09/24/2024 w/Dr. Jimenez Forwarded to [facility] [place] for review Sherrell Bojorquez RN Per neurology [...] 4:34 PM Signed Spoke with nurse Renae, [facility] - provided recommendation/she verbalizes understanding. MEGA Mondragon Christina M, RN 09/22/2024 12:09 PM Signed === MEGA Christianson Kelly, APRN.DWAYNE 09/22/2024 3:12 PM Addendum PHT level mildly elevated- if no se's would continue current dose Artis Hamilton APRN.Silvia Willis RN 09/23/2024 5:14 PM Signed Spoke with ADIA Chen at [facility]. Confirmed no side effects and to continue with current PHT doses. April verbalized understanding. Silvia Rogers RN Young DOMENICA, Yocasta 09/26/2024 12:38 PM Signed [facility] labs [...] - pantoprazo (more content not included)... Normal [facility] Phenytoin (Dilantin) Levelon 09-05-2024 PHENYTOIN 15.2 mL Normal 10.0-20.0 [facility] Comment on above: Order Comment: 729 Performed By: #### L 100.0100, L501.8100, L501.7700, L500.4050 #### [facility] [address] [place], [address] Valproic Acid (Depakene) Lev maribell 09-05-2024 VALPROIC ACID 120 ug/mL High 50-100 [facility] Comment on above: Order Comment: 729 Performed By: #### L 100.0100, L501.8100, L501.7700, L500.4050 #### [facility] [address], [address] Basic Metabolic Profile (BMP )on 08-27-2024 BUN/CRE 22.3 RATIO High 10-20 [facility] Comment on above: Order Comment: Performed By: #### L 500.4050, L100.0500 #### [facility] [address] [place], [address] CA,Total 8.8 mg/dL Normal 8.5-10.1 [facility] Comment on above: Order Comment: Performed By: #### L 500.4050, L100.0500 #### [facility] [address] [place], [address] Chloride [Moles/Vol] 110 mmol/L High 98-107 [facility] Comment on above: Order Comment: Performed By: #### L 500.4050, L100.0500 #### [facility] [address] [place], [address] CO2 [Moles/Vol] 28.0 mmol/L Normal 21.0-32.0 [facility] Comment on above: Order Comment: Performed By: #### L 500.4050, L100.0500 #### [facility] [address] [place], [address] Creatinine [Mass/Vol] 0.67 mg/dL Normal 0.55-1.02 [facility] Comment on above: Order Comment: Result Comment: The validity of the calculated GFR GFRAA in patients over 70 years has not been determined. Clinical correlation is essential. Performed By: #### L 500.4050, L100.0500 #### [facility] [address] [place], [address] EST GFR - AA 109 mL/min Normal >60 [facility] Comment on above: Order Comment: Result Comment: Afri can Citizen [place] GFR Calc Performed By: #### L 500.4050, L100.0500 #### [facility] [address] [place], [address] GAP 5 Normal 5-15 [facility] Comment on above: Order Comment: Performed By: #### L 500.4050, L100.0500 #### [facility] [address] [place], [address] GFR/1.73 sq M.predicted among non-blacks MDRD (S/P/Bld) [Vol rate/Area] 90 mL/min/{1.73_m2} Normal >60 [facility] Comment on above: Order Comment: Result Comment: Non- GFR Calc Performed By: #### L 500.4050, L100.0500 #### [facility] [address] [place], [address] Glucose [Mass/Vol] 88 mg/dL Normal 74-106 [facility] Comment on above: Order Comment: Performed By: #### L 500.4050, L100.0500 #### [facility] [address] [place], [address] Potassium [Moles/Vol] 4.3 mmol/L Normal 3.5-5.1 [facility] Comment on above: Order Comment: Performed By: #### L 500.4050, L100.0500 #### [facility] [address] [place], [address] Sodium [Moles/Vol] 142 mmol/L Normal 136-145 [facility] Comment on above: Order Comment: Performed By: #### L 500.4050, L100.0500 #### [facility] [address] [place], [address] Urea nitrogen [Mass/Vol] 15 mg/dL Normal 7-18 [facility] Comment on above: Order Comment: Performed By: #### L 500.4050, L100.0500 #### [facility] [address] [place], [address] CBC-Complete Blood Cnt No Di ffon 08-27-2024 Erythrocyte distribution width (RBC) [Ratio] 13.7 % Normal 11.6-14.6 [facility] Comment on above: Order Comment: Performed By: #### L 500.4050, L100.0500 #### [facility] [address] [place], [address] Hematocrit (Bld) [Volume fraction] 36.7 % Low 37-47 [facility] Comment on above: Order Comment: - Performed By: #### L 500.4050, L100.0500 #### [facility] [address] [place], [address] Hemoglobin (Bld) [Mass/Vol] 11.7 g/dL Low 12.0-15.0 [facility] Comment on above: Order Comment: - Performed By: #### L 500.4050, L100.0500 #### [facility] [address] [place], [address] MCH (RBC) [Entitic mass] 29.7 pg Normal 27.0-32.0 [facility] Comment on above: Order Comment: - Performed By: #### L 500.4050, L100.0500 #### [facility] [address] [place], [address] MCHC (RBC) [Mass/Vol] 31.9 g/dL Low 32-36 [facility] Comment on above: Order Comment: - Performed By: #### L 500.4050, L100.0500 #### [facility] [address] [place], [address] MCV (RBC) [Entitic vol] 93.1 fL Normal 81-99 [facility] Comment on above: Order Comment: - Performed By: #### L 500.4050, L100.0500 #### [facility] [address] [place], [address] Platelet mean volume (Bld) [Entitic vol] 12.4 fL High 6.2-12.0 [facility] Comment on above: Order Comment: - Performed By: #### L 500.4050, L100.0500 #### [facility] [address] [place], [address] Platelets (Bld) [#/Vol] 181 10*3/uL Normal 150-450 [facility] Comment on above: Order Comment: 211-1 Performed By: #### L 500.4050, L100.0500 #### [facility] [address] [place], [address] RBC (Bld) [#/Vol] 3.94 10*6/uL Low 4.2-5.4 [facility] Comment on above: Order Comment: 211-1 Performed By: #### L 500.4050, L100.0500 #### [facility] [address] [place], [address] RDW SD 46.8 fl High 35.1-43.9 [facility] Comment on above: Order Comment: 211-1 Performed By: #### L 500.4050, L100.0500 #### [facility] [address] [place], [address] WBC (Bld) [#/Vol] 6.6 10*3/uL Normal 4.4-11.0 [facility] Comment on above: Order Comment: 211-1 Performed By: #### L 500.4050, L100.0500 #### [facility] [address] [place], [address] CNPAni 08-27-2024 [facility] Telephone (NE50MN) -------- KATHERYN CHINO ([id number]) 1945 F Date Time Provider Department 08/27/24 JAYANT JIMENEZ NE50MN During your visit today, we recorded the following information about you: Mildred Mendez 08/27/2024 3:31 PM Signed OUTSIDE LAB REPORT FACILITY NAME [facility] PHONE/FAX COLLECTION DATE AND TIME: 08/26/24 0450 Uploaded to [facility] Pt scheduled for N/C w/ Sandra Duncan RN 08/28/2024 4:09 PM Signed [facility]: 08/27/2024 at 04:55 104: (? to 100) VAP 1000 mg: TID (was increased from 750 mg during recent hospitalization). Previous level ws 94 on 08/06/2024 ======== 08/17/2024 to 08/20/2024 [facility] ======== was patient of Dr. Pereira's last seen 09/01/[address] Jimenez on 09/24/2024: new consult ========= Call placed to [facility] [phone] Jimenez's number given to call back MEGA Dhillon Melissa 08/29/2024 10:26 AM Signed Mima of [facility] returning Nurse call. Please call [phone] Sandra Casey RN 08/29/2024 2:04 PM Signed [...] Status:Closed by SILVIA ROGERS on 08/29/24 Normal [facility] Phenytoin (Dilantin) Levelon 08-27-2024 PHENYTOIN 9.8 mL Low 10.0-20.0 [facility] Comment on above: Order Comment: Performed By: #### L 500.4050, L100.0500 #### [facility] [address] [place], [address] Valproic Acid (Depakene) Lev maribell 08-27-2024 VALPROIC ACID 104 ug/mL High 50-100 [facility] Comment on above: Order Comment: Performed By: #### L 500.4050, L100.0500 #### [facility] [address] [place], [address] CNDSon 08-20-2024 CNDS HNO ID: [id number] Author: JUAN JOSE HENDERSON DO Service: Hospital [...] No pending results Discharge Disposition Discharge Disposition: [facility] Facility - Greater than 30 Days Diet [...] call for appointment?: Yes Orville Mendoza DO [phone] [facility] [id number] PCP Requested Referral Follow-Up Appointment Follow-up hospitalization With: Your neurologist When: In 3 weeks Patient/Parents to call for appointment?: Yes Additional Provider to Provider Information: Treatment Team: Attending Provider: Juan Jose Henderson DO Primary Service: SHELBY RODRIGUEZ FOLLOW-UP APPOINTMENTS ALREADY SCHEDULED WITH A [facility] PROVIDER: No future appointments. ALLERGIES No [...] as: DEPAK (more content not included)... Normal [facility] THERAPY NTon 08-20-2024 THERAPY NT HNO ID: [id number] Author: ERIN MCDONNELL, PT Service: Physical Therapy Author Type: Physical Therapist Type: Therapy (PT/OT/Speech/Resp) Filed: 08/20/2024 09:58 Note Text: Physical Therapy Evaluation Summary SERVICE DATE: 08/20/2024 SERVICE TIME: 44 to 09 ROOM: [place] [address] PT 6 Clicks Score: 11 DISCHARGE RECOMMENDATIONS F Recommended Discharge Disposition Comments: patient appears to be at functional baseline, reports use of nima steady and in wheelchair at discharge that she self propels. 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 Relevant Past Medical History: epilepsy, MRDD HOME LIVING Patient Lives With: Facility Care Assistance Available: 24-Hour Entry To Home: No Stairs Equipment Owned: Wheelchair- Manual (nima gomez) PRIOR FUNCTIONAL LEVEL Required Assistance Assistance Required With: Transfers, Meals, Self Care reports she uses [employer] for transfers into w/c which she self-propels; they complete bathing/dressing but she does assist sometimes; feeds herself; has been at [facility] for past 10 years SUBJECTIVE Agreeable to PT session THERAPY DIAGNOSIS No Skilled Need TREATMENT INTERVENTIONS Evaluation $ Evaluation-Moderate (78373) Billed Units: 1 unit Skilled Treatment Time [...] in order to simulate pulling at nima gomez which she uses at custodial. PT assisted [...] August 20, 2024 TIME: 9:57 AM Normal [facility] THERAPY NT HNO ID: [id number] Author: BARBARA GARCIA OTR/Ailyn Service: Occupational Therapy Author Type: Occupational Therapist Type: Therapy (PT/OT/Speech/Resp) Filed: 08/20/2024 09:35 Note Text: Occupational Therapy Evaluation Summary SERVICE DATE: 08/20/2024 SERVICE TIME: 902 to 918 ROOM: [id number] OT 6 Clicks Score: 14 DISCHARGE RECOMMENDATIONS ECF Recommended Discharge Disposition Comments: recommend return to [facility]; pt resident for past 10 years; appears [...] Available: 24-Hour Equipment Owned: Wheelchair- Manual (nima Cellectar) PRIOR FUNCTIONAL LEVEL Required Assistance Assistance Required With: Transfers, Meals, Self Care reports she uses [employer] for transfers into w/c which she self-propels; they complete bathing/dressing but she does assist sometimes; feeds herself; has been at [facility] for past 10 years Baseline Cognition: Oriented to self, Oriented to place, Oriented to time, Oriented to situation SUBJECTIVE agreeable to session; no c/o pain; reports feeling back to her baseline COGNITION Responsiveness: Alert Follows Commands: 1-step Commands THERAPY DIAGNOSIS Reduced mobility-other, Decreased activities of daily living (ADL) TREATMENT INTERVENTIONS Evaluation Skilled Treatment Time (minutes): 16 $ Evaluation - Low (01748) Billed Units: 1 unit TRAINING AND EDUCATION PROVIDED Activity Adaptation/Compensatory Strategies, Bed Mobility, Benefits of In-Hospital Mobility, Functional Mobility Involving ADLs, Grooming Tasks, Orientation, Role of Occupational Therapy, Sitting Balance to Improve [place] with ADLs/Self-Care THERAPEUTIC SKILLS USED Assessment of [...] Therapy Services Discontinued: No skilled needs SIGNATURE: Barbara Garcia OTR/L PATIENT NAME: Katheryn Chino DATE: August 20, 2024 TIME: 9:35 AM Normal [facility] L501.7701on 08-19-2024 Phenytoin [Mass/Vol] 7.0 ug/mL Abnormal 10.0-20.0 [facility] Comment on above: Result Comment: Dete ction Limit = 0.8 <0.8 Indicates None Detected Performed at: [facility] [id number] Community Outreach Director: Haris Peraza PhD, Phone: [phone] Performed By: #### L 100.0100, L501.8100, L501.7700, L500.4050 #### [facility] [address] [place], [place], [id number] CBC W Auto Differential pane l (Bld)on 08-18-2024 Basophils (Bld) [#/Vol] 0.07 10*3/uL Normal <0.11 [facility] Comment on above: Order Comment: Speci men Type: BLOOD SPECIMEN Ordering Facility: [facility] Address: [address] [place] [address] Performed By: #### 5 7021-8 #### [facility] CLIA [id number] [address] [place] [address] [place] Basophils/100 WBC (Bld) 0.7 % Normal A [facility] Comment on above: Order Comment: Speci men Type: BLOOD SPECIMEN Ordering Facility: [facility] Address: [address] [place] [address] Performed By: #### 5 7021-8 #### [facility] CLIA [id number] [address] [place] [address] [place] Differential cell count method Nom (Bld) Auto Normal [facility] Comment on above: Order Comment: Speci men Type: BLOOD SPECIMEN Ordering Facility: [facility] Address: [facility] [place] [address] Performed By: #### 5 7021-8 #### [facility] CLIA [id number] [address] [place] Eosinophils (Bld) [#/Vol] 10*3/uL Normal <0.46 [facility] Comment on above: Order Comment: Speci men Type: BLOOD SPECIMEN Ordering Facility: [facility] Address: [address] [place] [address] Performed By: #### 5 7021-8 #### [facility] CLIA [id number] [address] Eosinophils/100 WBC (Bld) 0.2 % Normal [facility] Comment on above: Order Comment: Speci men Type: BLOOD SPECIMEN Ordering Facility: [facility] Address: [address] [place] [address] Performed By: #### 5 7021-8 #### [facility] CLIA [id number] [address] Erythrocyte distribution width (RBC) [Ratio] 13.7 % Normal 11.5-15.0 [facility] Comment on above: Order Comment: Speci men Type: BLOOD SPECIMEN Ordering Facility: [facility] Address: [facility] [place] [address] Performed By: #### 5 7021-8 #### [facility] CLIA [id number] [address] [place] Hematocrit (Bld) [Volume fraction] 35.4 % Low 36.0-46.0 [facility] Comment on above: Order Comment: Speci men Type: BLOOD SPECIMEN Ordering Facility: [facility] Address: [address] [place] [address] Performed By: #### 5 7021-8 #### [facility] CLIA [id number] [address] [place] [address] [place] Hemoglobin (Bld) [Mass/Vol] 11.5 g/dL Normal 11.5-15.5 [facility] Comment on above: Order Comment: Speci men Type: BLOOD SPECIMEN Ordering Facility: [facility] Address: [address] [place] [address] Performed By: #### 5 7021-8 #### [facility] CLIA [id number] [address] [place] [address] [place] Immature granulocytes (Bld) [#/Vol] 0.09 10*3/uL Normal <0.10 [facility] Comment on above: Order Comment: Speci men Type: BLOOD SPECIMEN Ordering Facility: [facility] Address: [address] [place] [address] Performed By: #### 5 7021-8 #### [facility] CLIA [id number] [address] [place] Immature granulocytes/100 WBC (Bld) 0.9 % Normal [facility] Comment on above: Order Comment: Speci men Type: BLOOD SPECIMEN Ordering Facility: [facility] Address: [address] [place] [address] Performed By: #### 5 7021-8 #### [facility] CLIA [id number] [address] [place] Lymphocytes (Bld) [#/Vol] 3.08 10*3/uL Normal 1.00-4.00 [facility] Comment on above: Order Comment: Speci men Type: BLOOD SPECIMEN Ordering Facility: [facility] Address: [address] [place] [address] Performed By: #### 5 7021-8 #### [facility] CLIA [id number] [address] [place] Lymphocytes/100 WBC (Bld) 31.9 % Normal [facility] Comment on above: Order Comment: Speci men Type: BLOOD SPECIMEN Ordering Facility: [facility] Address: [address] [place] [address] Performed By: #### 5 7021-8 #### [facility] CLIA [id number] [address] MCH (RBC) [Entitic mass] 29.9 pg Normal 26.0-34.0 [facility] Comment on above: Order Comment: Speci men Type: BLOOD SPECIMEN Ordering Facility: [facility] Address: [address] [place] [address] Performed By: #### 5 7021-8 #### [facility] CLIA [id number] [address] [place] MCHC (RBC) [Mass/Vol] 32.5 g/dL Normal 30.5-36.0 [facility] Comment on above: Order Comment: Speci men Type: BLOOD SPECIMEN Ordering Facility: [facility] Address: [address] [place] [address] Performed By: #### 5 7021-8 #### [facility] CLIA [id number] [address] MCV (RBC) [Entitic vol] 92.2 fL Normal 80.0-100.[address] [facility] Comment on above: Order Comment: Speci men Type: BLOOD SPECIMEN Ordering Facility: [facility] Address: [address] [place] [address] Performed By: #### 5 7021-8 #### [facility] CLIA [id number] [address] OF [facility] Monocytes (Bld) [#/Vol] 1.02 10*3/uL High <0.87 [facility] Comment on above: Order Comment: Speci men Type: BLOOD SPECIMEN Ordering Facility: [facility] Address: [address] [place] [address] Performed By: #### 5 7021-8 #### [facility] CLIA [id number] [address] Monocytes/100 WBC (Bld) 10.5 % Normal [facility] Comment on above: Order Comment: Speci men Type: BLOOD SPECIMEN Ordering Facility: [facility] Address: [address] [place] [address] Performed By: #### 5 7021-8 #### [facility] CLIA [id number] [address] [place] Neutrophils (Bld) [#/Vol] 5.39 10*3/uL Normal 1.45-7.50 [facility] Comment on above: Order Comment: Speci men Type: BLOOD SPECIMEN Ordering Facility: [facility] Address: [address] [place] [address] Performed By: #### 5 7021-8 #### [facility] CLIA [id number] [address] [place] Neutrophils/100 WBC (Bld) 55.8 % Normal [facility] Comment on above: Order Comment: Speci men Type: BLOOD SPECIMEN Ordering Facility: [facility] Address: [address] [place] [address] Performed By: #### 5 7021-8 #### [facility] CLIA [id number] [address] [place] Nucleated RBC (Bld) [#/Vol] 10*3/uL Normal <0.01 [facility] Comment on above: Order Comment: Speci men Type: BLOOD SPECIMEN Ordering Facility: [facility] Address: [address] [place] [address] Performed By: #### 5 7021-8 #### [facility] CLIA [id number] [address] [place] Nucleated RBC/100 WBC (Bld) [Ratio] 0.0 /100 WBC Normal [facility] Comment on above: Order Comment: Speci men Type: BLOOD SPECIMEN Ordering Facility: [facility] Address: [address] [place] [address] Performed By: #### 5 7021-8 #### [facility] CLIA [id number] [address] [place] Platelet mean volume (Bld) [Entitic vol] 11.1 fL Normal 9.0-12.7 [facility] Comment on above: Order Comment: Speci men Type: BLOOD SPECIMEN Ordering Facility: [facility] Address: [address] [place] [address] Performed By: #### 5 7021-8 #### [facility] CLIA [id number] [address] OF [facility] Platelets (Bld) [#/Vol] 185 10*3/uL Normal 150-400 [facility] Comment on above: Order Comment: Speci men Type: BLOOD SPECIMEN Ordering Facility: [facility] Address: [address] [place] [address] Performed By: #### 5 7021-8 #### [facility] CLIA [id number] [address] OF [facility] RBC (Bld) [#/Vol] 3.84 10*6/uL Low 3.90-5.20 [facility] Comment on above: Order Comment: Speci men Type: BLOOD SPECIMEN Ordering Facility: [facility] Address: [address] [place] [address] Performed By: #### 5 7021-8 #### [facility] CLIA [id number] [address] WBC (Bld) [#/Vol] 9.67 10*3/uL Normal 3.70-11.00 [facility] Comment on above: Order Comment: Speci men Type: BLOOD SPECIMEN Ordering Facility: [facility] Address: [address] [place] [address] Performed By: #### 5 7021-8 #### [facility] CLIA [id number] [address] CONSULTon 08-18-2024 CONSULT HNO ID: [id number] Author: KEYONA SANTANA MD Service: Neurology General [...] for status epilepticus pt was transferred to [facility] for increased monitoring. Today pt reports [...] against grav (more content not included)... Normal [facility] CONSULT HNO ID: [id number] Author: CHASE ROBERTSON APRN.DWAYNE Service: Palliative Care Author Type: Nurse Practitioner Type: Consults Filed: 08/18/2024 12:36 Note Text: INPATIENT PALLIATIVE MEDICINE NOTE [facility] Katheryn Chino [id number] * Palliative Medicine Diagnoses: Seizures, MDD, dementia, debility, CHF Symptom Meds Last 24 Hrs: none Opioid meds last 24 hours: none Total MME last 24 hours: 0 Subjective Referring Provider for Consult: Dr. Dominguez Palliative Medicine consulted for: Symptom management Will be communicated via shared medical record. HPI: Patient asyha 79 y/o female with a PMH of MDD, HTN, and seizures who presented from [place] with 10-15 minutes of grand mal seizures. Patient is from [place]. HCPOA 1 is brother Danny, 2 Richard, [...] prescriptions were reported. 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 Palliative Assessment Review of Symptoms (Modified [place] Symptom Assessment): Pain: None Dyspnea: None Nausea: [...] MIN PRN (more content not included)... Normal [facility] Comprehensive metabolic 2000 panelon 08-18-2024 Albumin [Mass/Vol] 4.3 g/dL Normal 3.9-4.9 [facility] Comment on above: Order Comment: Speci men Type: BLOOD SPECIMEN Ordering Facility: [facility] Address: [address] [place] [address] Performed By: #### 1 3023-9, 16238-7 #### [facility] CLIA [id number] [address] [place] ALP [Catalytic activity/Vol] 115 U/L Normal 34-123 [facility] Comment on above: Order Comment: Speci men Type: BLOOD SPECIMEN Ordering Facility: [facility] Address: [address] [place] [address] Performed By: #### 1 3323-9, 93257-6 #### [facility] CLIA [id number] [address] [place] ALT With P-5'-P [Catalytic activity/Vol] 16 U/L Normal 7-38 [facility] Comment on above: Order Comment: Speci men Type: BLOOD SPECIMEN Ordering Facility: [facility] Address: [address] [place] [address] Performed By: #### 1 9123-9, 27796-2 #### [facility] CLIA [id number] [address] [facility] Anion gap [Moles/Vol] 13 mmol/L Normal 8-15 [facility] Comment on above: Order Comment: Speci men Type: BLOOD SPECIMEN Ordering Facility: [facility] Address: [address] [place] [address] Performed By: #### 1 23-9, #### [facility] CLIA [id number] [address] [place] AST With P-5'-P [Catalytic activity/Vol] 30 U/L Normal 13-35 [facility] Comment on above: Order Comment: Speci men Type: BLOOD SPECIMEN Ordering Facility: [facility] Address: [address] [place] [address] Performed By: #### 1 23-9, #### [facility] CLIA [id number] [address] [place] Bilirubin [Mass/Vol] 0.4 mg/dL Normal 0.2-1.3 [facility] Comment on above: Order Comment: Speci men Type: BLOOD SPECIMEN Ordering Facility: [facility] Address: [address] [place] [address] Performed By: #### 1 239, #### [facility] CLIA [id number] [address] [place] Calcium [Mass/Vol] 9.3 mg/dL Normal 8.5-10.2 [facility] Comment on above: Order Comment: Speci men Type: BLOOD SPECIMEN Ordering Facility: [facility] Address: [address] [place] [address] Performed By: #### 1 23-9, #### [facility] CLIA [id number] 1 [place] [address] [place] Chloride [Moles/Vol] 103 mmol/L Normal 98-107 [facility] Comment on above: Order Comment: Speci men Type: BLOOD SPECIMEN Ordering Facility: [facility] Address: [address] [place] [address] Performed By: #### 1 23, #### [facility] CLIA [id number] [address] [place] [address] [place] CO2 [Moles/Vol] 25 mmol/L Normal 22-30 [facility] Comment on above: Order Comment: Speci men Type: BLOOD SPECIMEN Ordering Facility: [facility] Address: [address] [place] [address] Performed By: #### 1 9, #### [facility] CLIA [id number] [address] STATES OF [facility] Creatinine [Mass/Vol] 0.81 mg/dL Normal 0.58-0.96 [facility] Comment on above: Order Comment: Speci men Type: BLOOD SPECIMEN Ordering Facility: [facility] Address: [address] [place] [address] Performed By: #### 1 9, #### [facility] CLIA [id number] [address] Creatinine and Glomerular filtration rate.predicted panel (S/P/Bld) 75 mL/min/1.73m??? Normal >=60 [facility] Comment on above: Order Comment: Speci men Type: BLOOD SPECIMEN Ordering Facility: [facility] Address: [address] [place] [address] Result Comment: Yesika mated Glomerular Filtration Rate [...] actual GFR. Performed By: #### 1 9123-9, #### [facility] CLIA [id number] [address] OF [facility] Glucose [Mass/Vol] 84 mg/dL Normal 74-99 [facility] Comment on above: Order Comment: Speci men Type: BLOOD SPECIMEN Ordering Facility: [facility] Address: [address] [place] [address] Result Comment: The [place] Diabetes Association (ADA) provides guidance for cutoff [...] Standards of Medical Care in Diabetes 2016, [place] Diabetes Association. Diabetes Care. 2016.39(Suppl 1). Performed By: #### 1 9123-9, #### [facility] CLIA [id number] [address] [place] [address] [place] Potassium [Moles/Vol] 4.4 mmol/L Normal 3.7-5.1 [facility] Comment on above: Order Comment: Speci men Type: BLOOD SPECIMEN Ordering Facility: [facility] Address: [address] [place] [address] Performed By: #### 1 23-9, #### [facility] CLIA [id number] [address] [place] [address] [place] Protein [Mass/Vol] 7.4 g/dL Normal 6.3-8.0 [facility] Comment on above: Order Comment: Speci men Type: BLOOD SPECIMEN Ordering Facility: [facility] Address: [address] [place] [address] Performed By: #### 1 23-9, 91113-1 #### [facility] CLIA [id number] 1 [place] [address] [place] Sodium [Moles/Vol] 141 mmol/L Normal 136-144 [facility] Comment on above: Order Comment: Speci men Type: BLOOD SPECIMEN Ordering Facility: [facility] Address: [address] [place] [address] Performed By: #### 1 23-9, 36380-7 #### [facility] CLIA [id number] [address] [place] [address] [place] Urea nitrogen [Mass/Vol] 19 mg/dL Normal 7-21 [facility] Comment on above: Order Comment: Speci men Type: BLOOD SPECIMEN Ordering Facility: [facility] Address: [address] [place] [address] Performed By: #### 1 9123-9, 82167-2 #### [facility] CLIA [id number] [address] [place] [address] [place] Magnesium SerPl-mCncon 08-18 Magnesium [Mass/Vol] 1.9 mg/dL Normal 1.7-2.3 [facility] Comment on above: Order Comment: Speci men Type: BLOOD SPECIMEN Ordering Facility: [facility] Address: [address] [place] [address] Performed By: #### 1 9123-9, 91421-5 #### [facility] CLIA [id number] [address] [place] Phenytoin SerPl-mCncon 08-18 Phenytoin [Mass/Vol] 6.8 ug/mL Low 10.0-20.0 [facility] Comment on above: Order Comment: Speci men Type: BLOOD SPECIMEN Ordering Facility: [facility] Address: [address] [place] [address] Result Comment: Refe rence ranges and high/low indicator flags are provided as general guidelines only. The treating physician must determine appropriate target levels/dosing based on the specific clinical situation. Performed By: #### 3 968-5 #### [facility] CLIA [id number] [address] [place] Urinalysis complete panel (U )on 08-18-2024 Bilirubin Ql (U) Negative Normal Negative [facility] Comment on above: Order Comment: Speci men Type: URINE SPECIMEN Ordering Facility: [facility] Address: [address] [place] [address] Performed By: #### 2 4356-8 #### [facility] CLIA [id number] [address] [place] Clarity (Unsp spec) Clear Normal Clear [facility] Comment on above: Order Comment: Speci men Type: URINE SPECIMEN Ordering Facility: [facility] Address: [address] [place] [address] Performed By: #### 2 4356-8 #### [facility] CLIA [id number] [address] [place] Color (U) Yellow Normal yellow [facility] Comment on above: Order Comment: Speci men Type: URINE SPECIMEN Ordering Facility: [facility] Address: [address] [place] [address] Performed By: #### 2 4356-8 #### [facility] CLIA [id number] [address] Epithelial cells LM.HPF (Urine sed) [#/Area] Few Normal [facility] Comment on above: Order Comment: Speci men Type: URINE SPECIMEN Ordering Facility: [facility] Address: [address] [place] [address] Performed By: #### 2 4356-8 #### [facility] CLIA [id number] [address] Glucose Test strip (U) [Mass/Vol] Negative Normal Trace, Negative [facility] Comment on above: Order Comment: Speci men Type: URINE SPECIMEN Ordering Facility: [facility] Address: [address] [place] [address] Performed By: #### 2 4356-8 #### [facility] CLIA [id number] [address] Hemoglobin Ql (U) Negative Normal Negative, Trace [facility] [facility] Comment on above: Order Comment: Speci men Type: URINE SPECIMEN Ordering Facility: [facility] Address: [address] [place] [address] Performed By: #### 2 4356-8 #### [facility] CLIA [id number] [address] [place] Ketones Ql (U) Negative Normal Negative, Trace [facility] Comment on above: Order Comment: Speci men Type: URINE SPECIMEN Ordering Facility: [facility] Address: [address] [place] [address] Performed By: #### 2 4356-8 #### [facility] CLIA [id number] [address] Leukocyte esterase Test strip Ql (U) 75 James/uL Abnormal Negative, 25 James/uL [facility] Comment on above: Order Comment: Speci men Type: URINE SPECIMEN Ordering Facility: [facility] Address: [address] [place] [address] Performed By: #### 2 4356-8 #### [facility] CLIA [id number] [address] Nitrite Ql (U) Negative Normal Negative [facility] Comment on above: Order Comment: Speci men Type: URINE SPECIMEN Ordering Facility: [facility] Address: [address] [place] [address] Performed By: #### 2 4356-8 #### [facility] CLIA [id number] [address] pH (U) 6.0 [pH] Normal 5.0-8.0 [facility] Comment on above: Order Comment: Speci men Type: URINE SPECIMEN Ordering Facility: [facility] Address: [address] [place] [address] Performed By: #### 2 4356-8 #### [facility] CLIA [id number] [address] Protein (U) [Mass/Vol] Trace Normal Trace , Negative [facility] Comment on above: Order Comment: Speci men Type: URINE SPECIMEN Ordering Facility: [facility] Address: [address] [place] [address] Performed By: #### 2 4356-8 #### [facility] CLIA [id number] [address] [place] RBC LM.HPF (Urine sed) [#/Area] 0-3 /HPF Normal 0-3 /HPF [facility] Comment on above: Order Comment: Speci men Type: URINE SPECIMEN Ordering Facility: [facility] Address: [address] [place] [address] Performed By: #### 2 4356-8 #### [facility] CLIA [id number] [address] STATES OF [facility] Specific gravity (U) [Rel density] 1.029 Normal 1.005-1.03 0 [facility] Comment on above: Order Comment: Speci men Type: URINE SPECIMEN Ordering Facility: [facility] Address: [address] [place] [address] Performed By: #### 2 4356-8 #### [facility] CLIA [id number] [address] OF [facility] Urobilinogen Ql (U) Normal Normal Normal [facility] Comment on above: Order Comment: Speci men Type: URINE SPECIMEN Ordering Facility: [facility] Address: [address] [place] [address] Performed By: #### 2 4356-8 #### [facility] CLIA [id number] [address] STATES OF [facility] WBC LM.HPF (Urine sed) [#/Area] 6-10 /HPF Abnormal 0-5 /HPF [facility] Comment on above: Order Comment: Speci men Type: URINE SPECIMEN Ordering Facility: [facility] Address: [address] [place] [address] Performed By: #### 2 4356-8 #### [facility] CLIA [id number] [address] STATES OF [place] Valproate Free SerPl-mCncon 08-18-2024 Valproate Free [Mass/Vol] 1.8 ug/mL Low 4.0-30.0 [facility] Comment on above: Order Comment: Speci men Type: BLOOD SPECIMEN Ordering Facility: [facility] Address: [address] [place] [address] Result Comment: Refe rence ranges and high/low indicator flags are provided as general guidelines only. The treating physician must determine appropriate target levels/dosing based on the specific clinical situation. This test was developed, and its performance characteristics determined by the [facility] Department of Pathology and Laboratory Medicine. It has not been cleared or approved by the FDA. The [facility] Department of Pathology and Laboratory Medicine is regulated under CLIA as qualified to perform high-complexity testing. This test is used for clinical purposes. It should not be regarded as investigational or for research. Performed By: #### 4 087-3 #### [facility] CLIA [id number] [address] [place] [address] [place] Basic Metabolic Profile (BMP )on 08-17-2024 BUN/CRE 29.4 RATIO High 10-20 [facility] Comment on above: Performed By: #### L 501.7700 #### [facility] [address] [place], [address] CA,Total 8.8 mg/dL Normal 8.5-10.1 [facility] Comment on above: Performed By: #### L 501.7700 #### [facility] [address] [place], [address] Chloride [Moles/Vol] 110 mmol/L High 98-107 [facility] Comment on above: Performed By: #### L 501.7700 #### [facility] [address] [place], [address] CO2 [Moles/Vol] 25.0 mmol/L Normal 21.0-32.0 [facility] Comment on above: Performed By: #### L 501.7700 #### [facility] [address] [place], [address] Creatinine [Mass/Vol] 0.75 mg/dL Normal 0.55-1.02 [facility] Comment on above: Result Comment: The validity of the calculated GFR GFRAA in patients over 70 years has not been determined. Clinical correlation is essential. Performed By: #### L 501.7700 #### [facility] [address] [place], [address] ECRCL 63.42 ml/min Normal [facility] Comment on above: Performed By: #### L 501.7700 #### [facility] [address] [place], [address] EST GFR - AA 97 mL/min Normal >60 [facility] Comment on above: Result Comment: Afri can Citizen [place] GFR Calc Performed By: #### L 501.7700 #### [facility] [address] [place], [address] GAP 7 Normal 5-15 [facility] Comment on above: Performed By: #### L 501.7700 #### [facility] [address] [place], [address] GFR/1.73 sq M.predicted among non-blacks MDRD (S/P/Bld) [Vol rate/Area] 80 mL/min/{1.73_m2} Normal >60 [facility] Comment on above: Result Comment: Non- GFR Calc Performed By: #### L 501.7700 #### [facility] [address] [place], [address] Glucose [Mass/Vol] 102 mg/dL Normal 74-106 [facility] Comment on above: Result Comment: Fast ing Glucose result from 100 to 125 mg/dL suggests IMPAIRED HOMEOSTASIS per A.D.A. criteria. Performed By: #### L 501.7700 #### [facility] [address] [place], [address] Potassium [Moles/Vol] 4.1 mmol/L Normal 3.5-5.1 [facility] Comment on above: Performed By: #### L 501.7700 #### [facility] [address] [place], [address] Sodium [Moles/Vol] 142 mmol/L Normal 136-145 [facility] Comment on above: Performed By: #### L 501.7700 #### [facility] [address] [place] [place], [place], [address] Urea nitrogen [Mass/Vol] 22 mg/dL High 7-18 [facility] Comment on above: Performed By: #### L 501.7700 #### [facility] [address] [place], [address] Brain/Head without Contrasto n 08-17-2024 Brain/Head without Contrast [facility] Services [address] [place], [place] [address] Brain/Head without Contrast MR#: [id number] Acct: [id number] Name: KATHERYN CHINO Rep #: [id number] : 1945 F 79 From: Parag Servin MD PCP: Ron SESAY, Todd Status: [facility] Study: Brain/Head without Contrast Date of Exam: 01/05 Exam# [id number] Ordering Dr: Hayes Nicholson DO [id number] EXAM: CT HEAD WITHOUT INTRAVENOUS CONTRAST CLINICAL [...] Todd Velasquez MD; Dr. Hayes Nicholson DO Analog Design Engineer: Signed Normal [facility] CBC W/Diff, Automatedon 11-0 -2023 Absolute Lymph 2.98 X10 3/uL Normal 0.83-4.51 [facility] Comment on above: Performed By: #### L 501.7700 #### [facility] [address] [place], [address] Absolute Neut 4.1 X10 3/uL Normal 2.0-7.7 [facility] Comment on above: Performed By: #### L 501.7700 #### [facility] [address] [place], [address] Basophils/100 WBC (Bld) 0.9 % Normal 0-1 [facility] Comment on above: Performed By: #### L 501.7700 #### [facility] [address] [place], [address] Eosinophils/100 WBC (Bld) 0.7 % Normal 0-5 [facility] Comment on above: Performed By: #### L 501.7700 #### [facility] [address] [place], [address] Erythrocyte distribution width (RBC) [Ratio] 13.6 % Normal 11.6-14.6 [facility] Comment on above: Performed By: #### L 501.7700 #### [facility] [address] [place], [address] Hematocrit (Bld) [Volume fraction] 38.5 % Normal 37-47 [facility] Comment on above: Performed By: #### L 501.7700 #### [facility] [address] [place], [address] Hemoglobin (Bld) [Mass/Vol] 12.5 g/dL Normal 12.0-15.0 [facility] Comment on above: Performed By: #### L 501.7700 #### [facility] [address] [place], [address] IG% 0.700 Normal 0.0-0.9 [facility] Comment on above: Result Comment: IG% - Immature Granulocytes (promyelocytes, myelocytes and metamyelocytes) > 1% indicates that a LEFT SHIFT is Present. Performed By: #### L 501.7700 #### [facility] [address] [place], [address] Lymphocytes/100 WBC (Bld) 37.2 % Normal 19-41 [facility] Comment on above: Performed By: #### L 501.7700 #### [facility] [address] [place], [address] MCH (RBC) [Entitic mass] 29.6 pg Normal 27.0-32.0 [facility] Comment on above: Performed By: #### L 501.7700 #### [facility] [address] [place], [address] MCHC (RBC) [Mass/Vol] 32.5 g/dL Normal 32-36 [facility] Comment on above: Performed By: #### L 501.7700 #### [facility] [address] [place], [address] MCV (RBC) [Entitic vol] 91.0 fL Normal 81-99 [facility] Comment on above: Performed By: #### L 501.7700 #### [facility] [address] [place], [address] Monocytes/100 WBC (Bld) 9.5 % Normal 0-10 [facility] Comment on above: Performed By: #### L 501.7700 #### [facility] [address] [place], [address] Neutrophils/100 WBC (Bld) 51.0 % Normal 47-70 [facility] Comment on above: Performed By: #### L 501.7700 #### [facility] [address] [place], [address] Nucleated RBC (Bld) [#/Vol] 0 10*3/uL Normal 0-5 [facility] Comment on above: Performed By: #### L 501.7700 #### [facility] [address] [place], [address] Platelet mean volume (Bld) [Entitic vol] 11.1 fL Normal 6.2-12.0 [facility] Comment on above: Performed By: #### L 501.7700 #### [facility] [address] [place], [address] Platelets (Bld) [#/Vol] 197 10*3/uL Normal 150-450 [facility] Comment on above: Performed By: #### L 501.7700 #### [facility] [address] [place], [address] RBC (Bld) [#/Vol] 4.23 10*6/uL Normal 4.2-5.4 [facility] Comment on above: Performed By: #### L 501.7700 #### [facility] [address] [place], [address] RDW SD 45.6 fl High 35.1-43.9 [facility] Comment on above: Performed By: #### L 501.7700 #### [facility] [address] [place], [address] WBC (Bld) [#/Vol] 8.0 10*3/uL Normal 4.4-11.0 [facility] Comment on above: Performed By: #### L 501.7700 #### [facility] [address] [place], [address] Kuldip 08-17-2024 CNPKathrine Telephone (NEURTE) -------- KATHERYN CHINO ([id number]) 1945 F Date Time Provider Department 08/17/24 FRANCISCO JAVIER SALAZAR During your visit today, we recorded the following information about you: Francisco Javier Salazar MD 08/17/2024 11:50 AM Signed I received a call from the emergency room at [facility] regarding a patient of Dr. Nava. [...] free 3 years. Visit with epileptologist at [facility] and long EEG are indicated [...] Patient has not been seen in the [facility] system since 2019. At the minimum she needs an evaluation to reassess her epilepsy. Francisco Javier Salazar MD Neurology. (Telemedicine neurologist) Allergies As of Date: 08/17/2024 (No Known Allergies) Date Reviewed: 09/01/2019 Reviewed by: Katalina Al ([facility]) - Fully Assessed Prescriptions as of [...] losartan potassium (more content not included)... Normal [facility] Chest 1 View (Portable)on Chest 1 View (Portable) [facility] Imaging Services [address] [place] [address] Chest 1 View (Portable) MR#: [id number] Acct: [id number] Name: KATHERYN CHINO Rep #: [id number] : 1945 F 79 From: Rudy Jimenez PCP: Ron SESAY, Todd Status: [facility] ER Study: Chest 1 View (Portable) Date of Exam: 08/17/24 Exam# [id number] Ordering Dr: Ariel Yang DO [id number] EXAM: XR CHEST, 1 VIEW CLINICAL INDICATION: [...] CC: Todd Velasquez MD; Ariel Yang DO Analog Design Engineer: Signed Normal [facility] Summary on 08-17-2024 Emergency Department Summary [facility] Medical Records Department [address] [place] [address] Emergency Department Summary 08/17/24 MR#: [id number] Acct: [id number] Name: KATHERYN CHINO Rep #: [id number] : 1945 79 From: Ariel Yang DO [...] CC. I spoke with on-call neurology through [facility]. Recommended giving a gram of Keppra. We spoke with the patient's brother who is the POA. He states that this is atypical for the patient's seizures as typically they are short and she has a postictal timeframe and then achieves baseline but does not typically receives. We do not have in-house neurology/EEG today. Recommendation is for transfer. I spoke with [facility] [place] And the patient has been accepted. We [...] she was sent in for further evaluation [facility] Medical History Dysphagia, oropharyngeal phase Generalized [...] mg PO (more content not included)... 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 Normal [facility] NURSING PROGon 08-17-2024 NURSING PROG HNO ID: [id number] Author: MCKINLEY DUNN, RN Service: Nursing Author Type: Registered Nurse Type: Nursing Progress Note Filed: 08/18/2024 01:29 Note Text: Other: Pt admitted from [place] ED via ems. Pt arouses to name called. Pt is not speaking. Pt siderails padded. Call light in reach. Bed low and alarm activated. Vss. No distress observed at this time. Normal [facility] Urinalysis, Completeon 08-17 EPI,SQUAMOUS 0-5 SEEN Normal 5-10 [facility] Comment on above: Order Comment: 1939 Performed By: #### L 501.7700 #### [facility] [address] [place], [address] BACTERIA 0 SEEN Normal None Seen [facility] Comment on above: Order Comment: 1939 Performed By: #### L 501.7700 #### [facility] [address] [place], [address] Mucus Ql (Urine sed) [address] [facility] Comment on above: Order Comment: 1939 Performed By: #### L 501.7700 #### [facility] [address] [place], [address] RBC 0 SEEN Normal 0-5 [facility] Comment on above: Order Comment: 1939 Performed By: #### L 501.7700 #### [facility] [address] [place], [address] WBC 0 SEEN Normal 0-5 [facility] Comment on above: Order Comment: 1939 Performed By: #### L 501.7700 #### [facility] [address] [place], [address] Valproic Acid (Depakene) Lev maribell 08-17-2024 VALPROIC ACID 101 ug/mL High 50-100 [facility] Comment on above: Performed By: #### L 501.7700 #### [facility] [address] [place], [address] Basic Metabolic Profile (BMP )on 08-14-2024 BUN/CRE 20.9 RATIO High 10-20 [facility] Comment on above: Order Comment: - Performed By: #### L 500.4050, L100.0500 #### [facility] [address] [place], [address] CA,Total 9.1 mg/dL Normal 8.5-10.1 [facility] Comment on above: Order Comment: Performed By: #### L 500.4050, L100.0500 #### [facility] [address] [place], [address] Chloride [Moles/Vol] 109 mmol/L High 98-107 [facility] Comment on above: Order Comment: Performed By: #### L 500.4050, L100.0500 #### [facility] [address] [place], [address] CO2 [Moles/Vol] 25.0 mmol/L Normal 21.0-32.0 [facility] Comment on above: Order Comment: Performed By: #### L 500.4050, L100.0500 #### [facility] [address] [place], [address] Creatinine [Mass/Vol] 0.81 mg/dL Normal 0.55-1.02 [facility] Comment on above: Order Comment: Result Comment: The validity of the calculated GFR GFRAA in patients over 70 years has not been determined. Clinical correlation is essential. Performed By: #### L 500.4050, L100.0500 #### [facility] [address] [place], [address] EST GFR - AA 88 mL/min Normal >60 [facility] Comment on above: Order Comment: Result Comment: Afri can Citizen [place] GFR Calc Performed By: #### L 500.4050, L100.0500 #### [facility] [address] [place], [address] GAP 6 Normal 5-15 [facility] Comment on above: Order Comment: Performed By: #### L 500.4050, L100.0500 #### [facility] [address] [place], [address] GFR/1.73 sq M.predicted among non-blacks MDRD (S/P/Bld) [Vol rate/Area] 73 mL/min/{1.73_m2} Normal >60 [facility] Comment on above: Order Comment: Result Comment: Non- GFR Calc Performed By: #### L 500.4050, L100.0500 #### [facility] [address] [place], [address] Glucose [Mass/Vol] 93 mg/dL Normal 74-106 [facility] Comment on above: Order Comment: Performed By: #### L 500.4050, L100.0500 #### [facility] [address] [place], [address] Potassium [Moles/Vol] 4.4 mmol/L Normal 3.5-5.1 [facility] Comment on above: Order Comment: Performed By: #### L 500.4050, L100.0500 #### [facility] [address] [place], [address] Sodium [Moles/Vol] 140 mmol/L Normal 136-145 [facility] Comment on above: Order Comment: 211-1 Performed By: #### L 500.4050, L100.0500 #### [facility] [address] [place], [address] Urea nitrogen [Mass/Vol] 17 mg/dL Normal 7-18 [facility] Comment on above: Order Comment: 211-1 Performed By: #### L 500.4050, L100.0500 #### [facility] [address] [place], [address] CBC-Complete Blood Cnt No Di ffon 08-14-2024 Erythrocyte distribution width (RBC) [Ratio] 13.7 % Normal 11.6-14.6 [facility] Comment on above: Order Comment: 211.2 Performed By: #### L 500.2500, L100.0500 #### [facility] [address] [place], [address] Hematocrit (Bld) [Volume fraction] 36.1 % Low 37-47 [facility] Comment on above: Order Comment: 211.2 Performed By: #### L 500.2500, L100.0500 #### [facility] [address] [place], [address] Hemoglobin (Bld) [Mass/Vol] 11.9 g/dL Low 12.0-15.0 [facility] Comment on above: Order Comment: 211.2 Performed By: #### L 500.2500, L100.0500 #### [facility] [address] [place], [address] MCH (RBC) [Entitic mass] 30.4 pg Normal 27.0-32.0 [facility] Comment on above: Order Comment: 211.2 Performed By: #### L 500.2500, L100.0500 #### [facility] [address] [place], [address] MCHC (RBC) [Mass/Vol] 33.0 g/dL Normal 32-36 [facility] Comment on above: Order Comment: 211.2 Performed By: #### L 500.2500, L100.0500 #### [facility] [address] [place], [address] MCV (RBC) [Entitic vol] 92.3 fL Normal 81-99 [facility] Comment on above: Order Comment: 211.2 Performed By: #### L 500.2500, L100.0500 #### [facility] [address] [place], [address] Platelet mean volume (Bld) [Entitic vol] 11.8 fL Normal 6.2-12.0 [facility] Comment on above: Order Comment: 211.2 Performed By: #### L 500.2500, L100.0500 #### [facility] [address] [place], [address] Platelets (Bld) [#/Vol] 168 10*3/uL Normal 150-450 [facility] Comment on above: Order Comment: 211.2 Performed By: #### L 500.2500, L100.0500 #### [facility] [address] [place], [address] RBC (Bld) [#/Vol] 3.91 10*6/uL Low 4.2-5.4 [facility] Comment on above: Order Comment: 211.2 Performed By: #### L 500.2500, L100.0500 #### [facility] [address] [place], [address] RDW SD 46.5 fl High 35.1-43.9 [facility] Comment on above: Order Comment: 211.2 Performed By: #### L 500.2500, L100.0500 #### [facility] [address] [place], [address] WBC (Bld) [#/Vol] 5.4 10*3/uL Normal 4.4-11.0 [facility] Comment on above: Order Comment: . Performed By: #### L 500.2500, L100.0500 #### [facility] [address] [place], [address] Valproic Acid (Depakene) Lev maribell 08-06-2024 VALPROIC ACID 94 ug/mL Normal 50-100 [facility] Comment on above: Order Comment: Performed By: #### L 100.0100, L501.8100, L501.7700, L500.4050 #### [facility] [address] [place], [address] CBC W/Diff, Automatedon 06-16 Absolute Lymph 2.80 X10 3/uL Normal 0.83-4.51 [facility] Comment on above: Order Comment: 1939 Performed By: #### L 501.7700 #### [facility] [address] [place], [address] Absolute Neut 3.5 X10 3/uL Normal 2.0-7.7 [facility] Comment on above: Order Comment: 1939 Performed By: #### L 501.7700 #### [facility] [address] [place], [address] Basophils/100 WBC (Bld) 1.1 % High 0-1 [facility] Comment on above: Order Comment: 1939 Performed By: #### L 501.7700 #### [facility] [address] [place], [address] Eosinophils/100 WBC (Bld) 1.8 % Normal 0-5 [facility] Comment on above: Order Comment: 1939 Performed By: #### L 501.7700 #### [facility] [address] [place], [address] Erythrocyte distribution width (RBC) [Ratio] 13.4 % Normal 11.6-14.6 [facility] Comment on above: Order Comment: 1939 Performed By: #### L 501.7700 #### [facility] [address] [place], [address] Hematocrit (Bld) [Volume fraction] 35.9 % Low 37-47 [facility] Comment on above: Order Comment: 1939 Performed By: #### L 501.7700 #### [facility] [address] [place], [address] Hemoglobin (Bld) [Mass/Vol] 11.3 g/dL Low 12.0-15.0 [facility] Comment on above: Order Comment: 1939 Performed By: #### L 501.7700 #### [facility] [address] [place], [address] IG% 0.300 Normal 0.0-0.9 [facility] Comment on above: Order Comment: 1939 Result Comment: IG% - Immature Granulocytes (promyelocytes, myelocytes and metamyelocytes) > 1% indicates that a LEFT SHIFT is Present. Performed By: #### L 501.7700 #### [facility] [address] [place], [address] Lymphocytes/100 WBC (Bld) 38.8 % Normal 19-41 [facility] Comment on above: Order Comment: 1939 Performed By: #### L 501.7700 #### [facility] [address] [place], [address] MCH (RBC) [Entitic mass] 29.7 pg Normal 27.0-32.0 [facility] Comment on above: Order Comment: 1939 Performed By: #### L 501.7700 #### [facility] [address] [place], [address] MCHC (RBC) [Mass/Vol] 31.5 g/dL Low 32-36 [facility] Comment on above: Order Comment: 1939 Performed By: #### L 501.7700 #### [facility] [address] [place], [address] MCV (RBC) [Entitic vol] 94.2 fL Normal 81-99 [facility] Comment on above: Order Comment: 1939 Performed By: #### L 501.7700 #### [facility] [address] [place], [address] Monocytes/100 WBC (Bld) 9.6 % Normal 0-10 [facility] Comment on above: Order Comment: 1939 Performed By: #### [id number] #### [facility] [address] [place], [address] Neutrophils/100 WBC (Bld) 48.4 % Normal 47-70 [facility] Comment on above: Order Comment: 1939 Performed By: #### [id number] #### [facility] [address] [place], [address] Nucleated RBC (Bld) [#/Vol] 0 10*3/uL Normal 0-5 [facility] Comment on above: Order Comment: 1939 Performed By: #### [id number] #### [facility] [address] [place], [address] Platelet mean volume (Bld) [Entitic vol] 12.0 fL Normal 6.2-12.0 [facility] Comment on above: Order Comment: 1939 Performed By: #### [id number] #### [facility] [address] [place], [address] Platelets (Bld) [#/Vol] 170 10*3/uL Normal 150-450 [facility] Comment on above: Order Comment: 1939 Performed By: #### [id number] #### [facility] [address] [place], [address] RBC (Bld) [#/Vol] 3.81 10*6/uL Low 4.2-5.4 [facility] Comment on above: Order Comment: 1939 Performed By: #### [id number] #### [facility] [address] [place], [address] RDW SD 46.4 fl High 35.1-43.9 [facility] Comment on above: Order Comment: 1939 Performed By: #### [id number] #### [facility] [address] [place], [address] WBC (Bld) [#/Vol] 7.2 10*3/uL Normal 4.4-11.0 [facility] Comment on above: Order Comment: 1939 Performed By: #### [id number] #### [facility] [address] [place], [address] Comprehensive Metabolic Prof il 07-07-2024 Albumin [Mass/Vol] 3.1 g/dL Low 3.2-5.0 [facility] Comment on above: Order Comment: 1939 Performed By: #### [id number] #### [facility] [address] [place], [address] Albumin/Globulin [Mass ratio] 0.8 {ratio} Low 0.9-2.4 [facility] Comment on above: Order Comment: 1939 Performed By: #### [id number] #### [facility] [address] [place], [address] ALK P 105 U/L Normal 45-117 [facility] Comment on above: Order Comment: 1939 Performed By: #### [id number] #### [facility] [address] [place], [address] ALT [Catalytic activity/Vol] 17 U/L Normal 13-56 [facility] Comment on above: Order Comment: 1939 Performed By: #### [id number] #### [facility] [address] [place], [address] AST [Catalytic activity/Vol] 19 U/L Normal 15-37 [facility] Comment on above: Order Comment: 1939 Performed By: #### [id number] #### [facility] [address] [place], [address] Bilirubin [Mass/Vol] 0.20 mg/dL Normal 0.20-1.00 [facility] Comment on above: Order Comment: 1939 Result Comment: For patients on eltrombopag therapy, use of Dimension [place] TBIL is not recommended. Performed By: #### [id number] #### [facility] [address] [place], [address] BUN/CRE 27.0 RATIO High 10-20 [facility] Comment on above: Order Comment: 1939 Performed By: #### [id number] #### [facility] [address] [place], [address] CA,Total 9.3 mg/dL Normal 8.5-10.1 [facility] Comment on above: Order Comment: 1939 Performed By: #### [id number] #### [facility] [address] [place], [address] Chloride [Moles/Vol] 108 mmol/L High 98-107 [facility] Comment on above: Order Comment: 1939 Performed By: #### [id number] #### [facility] [address] [place], [address] CO2 [Moles/Vol] 27.0 mmol/L Normal 21.0-32.0 [facility] Comment on above: Order Comment: 1939 Performed By: #### [id number] #### [facility] [address] [place], [address] Creatinine [Mass/Vol] 0.70 mg/dL Normal 0.55-1.02 [facility] Comment on above: Order Comment: 1939 Result Comment: The validity of the calculated GFR GFRAA in patients over 70 years has not been determined. Clinical correlation is essential. Performed By: #### [id number] #### [facility] [address] [place], [address] EST GFR - AA 104 mL/min Normal >60 [facility] Comment on above: Order Comment: 1939 Result Comment: Afri can Citizen Of [place] GFR Calc Performed By: #### [id number] #### [facility] [address] [place], [address] GAP 6 Normal 5-15 [facility] Comment on above: Order Comment: 1939 Performed By: #### [id number] #### [facility] [address] [place], [address] GFR/1.73 sq M.predicted among non-blacks MDRD (S/P/Bld) [Vol rate/Area] 86 mL/min/{1.73_m2} Normal >60 [facility] Comment on above: Order Comment: 1939 Result Comment: Non- GFR Calc Performed By: #### [id number] #### [facility] [address] [place], [address] Globulin (S) [Mass/Vol] 3.8 g/dL Normal 2.2-4.2 [facility] Comment on above: Order Comment: 1939 Performed By: #### [id number] #### [facility] [address] [place], [address] Glucose [Mass/Vol] 91 mg/dL Normal 74-106 [facility] Comment on above: Order Comment: 1939 Performed By: #### [id number] #### [facility] [address] [place], [address] Potassium [Moles/Vol] 4.5 mmol/L Normal 3.5-5.1 [facility] Comment on above: Order Comment: 1939 Performed By: #### [id number] #### [facility] [address] [place], [address] Sodium [Moles/Vol] 141 mmol/L Normal 136-145 [facility] Comment on above: Order Comment: 1939 Performed By: #### [id number] #### [facility] [address] [place], [address] T PROT 6.9 g/dL Normal 6.4-8.2 [facility] Comment on above: Order Comment: 1939 Performed By: #### [id number] #### [facility] [address] [place], [address] Urea nitrogen [Mass/Vol] 19 mg/dL High 7-18 [facility] Comment on above: Order Comment: 1939 Performed By: #### [id number] #### [facility] [address] [place], [address] Phenytoin (Dilantin) Levelon 07-07-2024 PHENYTOIN 7.1 mL Low 10.0-20.0 [facility] Comment on above: Order Comment: 1939 Performed By: #### [id number] #### [facility] [address] [place], [address] Valproic Acid (Depakene) Lev maribell 07-07-2024 VALPROIC ACID 103 ug/mL High 50-100 [facility] Comment on above: Order Comment: 1939 Performed By: #### [id number] #### [facility] [address] [place], [address] No Panel InformationOrdered By: Todd Velasquez on 11-05-2023 Valproic Acid (Depakene) Level 95 ug/mL 50-100 [facility] Absolute lymphocyte countOrd ered By: Todd Velasquez on 10-29-2023 Lymphocytes Auto (Unsp spec) [#/Vol] 2.23 10*3/uL 0.83-4.51 [facility] Basophil percentageOrdered B y: Todd Velasquez on 10-29-2023 Basophils/100 WBC (Bld) 0.7 % 0-1 [facility] Bilirubin [Mass/Vol] 0.40 mg/dL 0.20-1.00 [facility] Comment on above: For patients on eltr ombopag therapy, use of Dimension [place] TBIL is not recommended. Chloride [Moles/Vol] 106 mmol/L 98-107 [facility] Eosinophils/100 WBC (Bld) 1.6 % 0-5 [facility] Glucose [Mass/Vol] 88 mg/dL 74-106 [facility] Neutrophils (Bld) [#/Vol] 4.7 10*3/uL 2.0-7.7 [facility] Neutrophils/100 WBC (Bld) 58.1 % 47-70 [facility] Potassium [Moles/Vol] 4.3 mmol/L 3.5-5.1 [facility] Protein [Mass/Vol] 7.0 g/dL 6.4-8.2 [facility] Sodium [Moles/Vol] 139 mmol/L 136-145 [facility] WBC (Bld) [#/Vol] 8.1 10*3/uL 4.4-11.0 [facility] Blood erythrocytes count (nu mber/volume)Ordered By: Todd Velasquez on 10-29-2023 RBC (Bld) [#/Vol] 3.91 10*6/uL 4.2-5.4 [facility] Blood hemoglobin measurement (mass/volume)Ordered By: Todd Velasquez on 10-29-2023 Hemoglobin (Bld) [Mass/Vol] 12.1 g/dL 12.0-15.0 [facility] Blood lymphocytes/100 leukoc ytesOrdered By: Todd Velasquez on 10-29-2023 Lymphocytes/100 WBC (Bld) 27.7 % 19-41 [facility] Blood monocytes/100 leukocyt esOrdered By: Todd Velasquez on 10-29-2023 Monocytes/100 WBC (Bld) 11.4 % 0-10 [facility] Blood platelet mean volumeOr dered By: Todd Velasquez on 10-29-2023 Platelet mean volume (Bld) [Entitic vol] 11.4 fL 6.2-12.0 [facility] Determination of erythrocyte mean corpuscular volume (MCV)Ordered By: Todd Velasquez on 10-29-2023 MCV (RBC) [Entitic vol] 93.9 fL 81-99 [facility] Hematocrit Auto (Bld) [Volum e fraction]Ordered By: Todd Velasquez on 10-29-2023 Hematocrit (Bld) [Volume fraction] 36.7 % 37-47 [facility] - Chemistry and C hemistry - challengeOrdered By: Todd Velasquez on 10-29-2023 ALP [Catalytic activity/Vol] 103 U/L 45-117 [facility] ALT [Catalytic activity/Vol] 12 U/L 13-56 [facility] CO2 [Moles/Vol] 26.0 mmol/L 21.0-32.0 [facility] Globulin (S) [Mass/Vol] 3.8 g/dL 2.2-4.2 [facility] Urea nitrogen/Creatinine [Mass ratio] 18.9 mg/mg 10-20 [facility] - Hematology and Cell countsOrdered By: Todd Velasquez on 10-29-2023 Erythrocyte distribution width (RBC) [Entitic vol] 44.3 fL 35.1-43.9 [facility] Erythrocyte distribution width (RBC) [Ratio] 13.0 % 11.6-14.6 [facility] Immature granulocytes/100 WBC (Bld) 0.500 % 0.0-0.9 [facility] Comment on above: IG% - Immature Granu locytes (promyelocytes, myelocytes and metamyelocytes) > 1% indicates that a LEFT SHIFT is Present. MCH (RBC) [Entitic mass] 30.9 pg 27.0-32.0 [facility] Nucleated RBC/100 WBC (Bld) [Ratio] 0 % 0-5 [facility] MCHC Auto (RBC) [Mass/Vol]Or dered By: Todd Velasquez on 10-29-2023 MCHC (RBC) [Mass/Vol] 33.0 g/dL 32-36 [facility] No Panel InformationOrdered By: Todd Velasquez on 10-29-2023 Estimated GFR (MDRD) Amer 107 mL/min >60 [facility] Comment on above: GFR Calc Estimated GFR (MDRD) Non-Af Amer 88 mL/min >60 [facility] Comment on above: Non- GFR Calc Valproic Acid (Depakene) Level 116 ug/mL 50-100 [facility] Platelets bldOrdered By: Ignacia Velasquez on 10-29-2023 Platelets (Bld) [#/Vol] 194 10*3/uL 150-450 [facility] Serum or plasma albumin jacob urement (mass/volume)Ordered By: Todd Velasquez on 10-29-2023 Albumin [Mass/Vol] 3.2 g/dL 3.2-5.0 [facility] Serum or plasma albumin/glob ulin mass ratioOrdered By: Todd Velasquez on 10-29-2023 Albumin/Globulin [Mass ratio] 0.8 {ratio} 0.9-2.4 [facility] Serum or plasma calcium jacob urement (mass/volume)Ordered By: Todd Velasquez on 10-29-2023 Calcium [Mass/Vol] 9.2 mg/dL 8.5-10.1 [facility] Serum or plasma creatinine m easurement (mass/volume)Ordered By: Todd Velasquez on 10-29-2023 Creatinine [Mass/Vol] 0.69 mg/dL 0.55-1.02 [facility] Comment on above: The validity of the calculated GFR & GFRAA in patients over 70 years has not been determined. Clinical correlation is essential. Serum or plasma phenytoin me asurement (mass/volume)Ordered By: Todd Velasquez on 10-29-2023 Phenytoin [Mass/Vol] 7.4 mL 10.0-20.0 [facility] Serum or plasma urea nitroge n measurement (mass/volume)Ordered By: Todd Velasquez on 10-29-2023 Urea nitrogen [Mass/Vol] 13 mg/dL 7-18 [facility] Thin prep Papanicolaou smear with manual screeningOrdered By: Todd Velasquez on 10-29-2023 Thin prep Papanicolaou smear with manual screening 19 U/L 15-37 [facility] Thin prep Papanicolaou smear with manual screening 7 5-15 [facility] Serum or plasma phenytoin me asurement (mass/volume)Ordered By: Todd Velasquez on 09-25-2023 Phenytoin [Mass/Vol] 9.6 mL 10.0-20.0 [facility] Absolute lymphocyte countOrd ered By: Kee Amezquita on 09-18-2023 Lymphocytes Auto (Unsp spec) [#/Vol] 1.37 10*3/uL 0.83-4.51 [facility] Basophil percentageOrdered B y: Kee Amezquita on 09-18-2023 Basophils/100 WBC (Bld) 1.0 % 0-1 [facility] Chloride [Moles/Vol] 106 mmol/L 98-107 [facility] Eosinophils/100 WBC (Bld) 1.6 % 0-5 [facility] Glucose [Mass/Vol] 107 mg/dL 74-106 [facility] Comment on above: Fasting Glucose resu lt from 100 to 125 mg/dL suggests IMPAIRED HOMEOSTASIS per A.D.A. criteria. Neutrophils (Bld) [#/Vol] 3.7 10*3/uL 2.0-7.7 [facility] Neutrophils/100 WBC (Bld) 64.8 % 47-70 [facility] Potassium [Moles/Vol] 4.0 mmol/L 3.5-5.1 [facility] Sodium [Moles/Vol] 138 mmol/L 136-145 [facility] WBC (Bld) [#/Vol] 5.7 10*3/uL 4.4-11.0 [facility] Blood erythrocytes count (nu mber/volume)Ordered By: Kee Amezquita on 09-18-2023 RBC (Bld) [#/Vol] 4.37 10*6/uL 4.2-5.4 [facility] Blood hemoglobin measurement (mass/volume)Ordered By: Kee Amezquita on 09-18-2023 Hemoglobin (Bld) [Mass/Vol] 13.4 g/dL 12.0-15.0 [facility] Blood lymphocytes/100 leukoc ytesOrdered By: Kee Amezquita on 09-18-2023 Lymphocytes/100 WBC (Bld) 23.9 % 19-41 [facility] Blood monocytes/100 leukocyt esOrdered By: Kee Amezquita on 09-18-2023 Monocytes/100 WBC (Bld) 8.0 % 0-10 [facility] Blood platelet mean volumeOr dered By: Kee Amezquita on 09-18-2023 Platelet mean volume (Bld) [Entitic vol] 10.9 fL 6.2-12.0 [facility] Determination of erythrocyte mean corpuscular volume (MCV)Ordered By: Kee Amezquita on 09-18-2023 MCV (RBC) [Entitic vol] 93.8 fL 81-99 [facility] Hematocrit Auto (Bld) [Volum e fraction]Ordered By: Kee Amezquita on 09-18-2023 Hematocrit (Bld) [Volume fraction] 41.0 % 37-47 [facility] - Chemistry and C hemistry - challengeOrdered By: Kee Amezquita on 09-18-2023 CO2 [Moles/Vol] 26.0 mmol/L 21.0-32.0 [facility] Urea nitrogen/Creatinine [Mass ratio] 16.6 mg/mg 10-20 [facility] - Hematology and Cell countsOrdered By: Kee Amezquita on 09-18-2023 Erythrocyte distribution width (RBC) [Entitic vol] 43.6 fL 35.1-43.9 [facility] Erythrocyte distribution width (RBC) [Ratio] 12.5 % 11.6-14.6 [facility] Immature granulocytes/100 WBC (Bld) 0.700 % 0.0-0.9 [facility] Comment on above: IG% - Immature Granu locytes (promyelocytes, myelocytes and metamyelocytes) > 1% indicates that a LEFT SHIFT is Present. MCH (RBC) [Entitic mass] 30.7 pg 27.0-32.0 [facility] Nucleated RBC/100 WBC (Bld) [Ratio] 0 % 0-5 [facility] MCHC Auto (RBC) [Mass/Vol]Or dered By: Kee Amezqutia on 09-18-2023 MCHC (RBC) [Mass/Vol] 32.7 g/dL 32-36 [facility] No Panel InformationOrdered By: Kee Amezquita on 09-18-2023 Estimated Creatinine Clearance Calc 41.33 ml/min [facility] Estimated GFR (MDRD) Amer 92 mL/min >60 [facility] Comment on above: GFR Calc Estimated GFR (MDRD) Non-Af Amer 76 mL/min >60 [facility] Comment on above: Non- GFR Calc Valproic Acid (Depakene) Level 70 ug/mL 50-100 [facility] Platelets bldOrdered By: Praneeth Amezquita on 09-18-2023 Platelets (Bld) [#/Vol] 210 10*3/uL 150-450 [facility] Serum or plasma calcium jacob urement (mass/volume)Ordered By: Kee Amezquita on 09-18-2023 Calcium [Mass/Vol] 9.1 mg/dL 8.5-10.1 [facility] Serum or plasma creatinine m easurement (mass/volume)Ordered By: Kee Amezquita on 09-18-2023 Creatinine [Mass/Vol] 0.78 mg/dL 0.55-1.02 [facility] Comment on above: The validity of the calculated GFR & GFRAA in patients over 70 years has not been determined. Clinical correlation is essential. Serum or plasma phenytoin me asurement (mass/volume)Ordered By: Kee Amezquita on 09-18-2023 Phenytoin [Mass/Vol] 9.6 mL 10.0-20.0 [facility] Serum or plasma urea nitroge n measurement (mass/volume)Ordered By: Kee Amezquita on 09-18-2023 Urea nitrogen [Mass/Vol] 13 mg/dL 7-18 [facility] Thin prep Papanicolaou smear with manual screeningOrdered By: Kee Amezquita on 09-18-2023 Thin prep Papanicolaou smear with manual screening 6 5-15 [facility] No Panel InformationOrdered By: Todd Velasquez on 08-15-2023 Valproic Acid (Depakene) Level 91 ug/mL 50-100 [facility] Serum or plasma phenytoin me asurement (mass/volume)Ordered By: Todd Velasquez on 08-15-2023 Phenytoin [Mass/Vol] 8.2 mL 10.0-20.0 [facility] Absolute lymphocyte countOrd ered By: Todd Velasquez on 08-06-2023 Lymphocytes Auto (Unsp spec) [#/Vol] 2.35 10*3/uL 0.83-4.51 [facility] Basophil percentageOrdered B y: Todd Velasquez on 08-06-2023 Basophils/100 WBC (Bld) 0.8 % 0-1 [facility] Bilirubin [Mass/Vol] 0.40 mg/dL 0.20-1.00 [facility] Comment on above: For patients on eltr ombopag therapy, use of Dim[place] TBIL is not recommended. Chloride [Moles/Vol] 108 mmol/L 98-107 [facility] Eosinophils/100 WBC (Bld) 2.1 % 0-5 [facility] Glucose [Mass/Vol] 90 mg/dL 74-106 [facility] Neutrophils (Bld) [#/Vol] 3.0 10*3/uL 2.0-7.7 [facility] Neutrophils/100 WBC (Bld) 48.5 % 47-70 [facility] Potassium [Moles/Vol] 4.5 mmol/L 3.5-5.1 [facility] Protein [Mass/Vol] 6.7 g/dL 6.4-8.2 [facility] Sodium [Moles/Vol] 140 mmol/L 136-145 [facility] WBC (Bld) [#/Vol] 6.2 10*3/uL 4.4-11.0 [facility] Blood erythrocytes count (nu mber/volume)Ordered By: Todd Velasquez on 08-06-2023 RBC (Bld) [#/Vol] 3.90 10*6/uL 4.2-5.4 [facility] Blood hemoglobin measurement (mass/volume)Ordered By: Todd Velasquez on 08-06-2023 Hemoglobin (Bld) [Mass/Vol] 12.1 g/dL 12.0-15.0 [facility] Blood lymphocytes/100 leukoc ytesOrdered By: Todd Velasquez on 08-06-2023 Lymphocytes/100 WBC (Bld) 38.0 % 19-41 [facility] Blood monocytes/100 leukocyt esOrdered By: Todd Velasquez on 08-06-2023 Monocytes/100 WBC (Bld) 10.3 % 0-10 [facility] Blood platelet mean volumeOr dered By: Todd Velasquez on 08-06-2023 Platelet mean volume (Bld) [Entitic vol] 11.8 fL 6.2-12.0 [facility] Determination of erythrocyte mean corpuscular volume (MCV)Ordered By: Todd Velasquez on 08-06-2023 MCV (RBC) [Entitic vol] 95.9 fL 81-99 [facility] Hematocrit Auto (Bld) [Volum e fraction]Ordered By: Todd Velasquez on 08-06-2023 Hematocrit (Bld) [Volume fraction] 37.4 % 37-47 [facility] - Chemistry and C hemistry - challengeOrdered By: Todd Velasquez on 08-06-2023 ALP [Catalytic activity/Vol] 99 U/L 45-117 [facility] ALT [Catalytic activity/Vol] 18 U/L 13-56 [facility] CO2 [Moles/Vol] 29.0 mmol/L 21.0-32.0 [facility] Globulin (S) [Mass/Vol] 3.6 g/dL 2.2-4.2 [facility] Urea nitrogen/Creatinine [Mass ratio] 21.8 mg/mg 10-20 [facility] - Hematology and Cell countsOrdered By: Todd Velasquez on 08-06-2023 Erythrocyte distribution width (RBC) [Entitic vol] 46.5 fL 35.1-43.9 [facility] Erythrocyte distribution width (RBC) [Ratio] 13.1 % 11.6-14.6 [facility] Immature granulocytes/100 WBC (Bld) 0.300 % 0.0-0.9 [facility] Comment on above: IG% - Immature Granu locytes (promyelocytes, myelocytes and metamyelocytes) > 1% indicates that a LEFT SHIFT is Present. MCH (RBC) [Entitic mass] 31.0 pg 27.0-32.0 [facility] Nucleated RBC/100 WBC (Bld) [Ratio] 0 % [facility]5 [facility] ([facility]) [Mass/Vol]Or dered By: Todd Velasquez on 08-06-2023 MCHC (RBC) [Mass/Vol] 32.4 g/dL 32-36 [facility] No Panel InformationOrdered By: Todd Velasquez on 08-06-2023 Estimated GFR (MDRD) Amer 99 mL/min >60 [facility] Comment on above: GFR Calc Estimated GFR (MDRD) Non-Af Amer 82 mL/min >60 [facility] Comment on above: Non- GFR Calc Valproic Acid (Depakene) Level 102 ug/mL 50-100 [facility] Platelets bldOrdered By: Ignacia Velasquez on 08-06-2023 Platelets (Bld) [#/Vol] 169 10*3/uL 150-450 [facility] Serum or plasma albumin jacob urement (mass/volume)Ordered By: Todd Velasquez on 08-06-2023 Albumin [Mass/Vol] 3.1 g/dL 3.2-5.0 [facility] Serum or plasma albumin/glob ulin mass ratioOrdered By: Todd Velasquez on 08-06-2023 Albumin/Globulin [Mass ratio] 0.9 {ratio} 0.9-2.4 [facility] Serum or plasma calcium jacob urement (mass/volume)Ordered By: Todd Velasquez on 08-06-2023 Calcium [Mass/Vol] 8.9 mg/dL 8.5-10.1 [facility] Serum or plasma creatinine m easurement (mass/volume)Ordered By: Todd Velasquez on 08-06-2023 Creatinine [Mass/Vol] 0.74 mg/dL 0.55-1.02 [facility] Comment on above: The validity of the calculated GFR & GFRAA in patients over 70 years has not been determined. Clinical correlation is essential. Serum or plasma phenytoin me asurement (mass/volume)Ordered By: Todd Velasquez on 08-06-2023 Phenytoin [Mass/Vol] 7.0 mL 10.0-20.0 [facility] Serum or plasma urea nitroge n measurement (mass/volume)Ordered By: Todd Velasquez on 08-06-2023 Urea nitrogen [Mass/Vol] 16 mg/dL 7-18 [facility] Thin prep Papanicolaou smear with manual screeningOrdered By: Todd Velasquez on 08-06-2023 Thin prep Papanicolaou smear with manual screening 16 U/L 15-37 [facility] Thin prep Papanicolaou smear with manual screening 3 5-15 [facility] Absolute lymphocyte countOrd ered By: Todd Velasquez on 05-14-2023 Lymphocytes Auto (Unsp spec) [#/Vol] 2.33 10*3/uL 0.83-4.51 [facility] Basophil percentageOrdered B y: Todd Velasquez on 05-14-2023 Basophils/100 WBC (Bld) 0.9 % 0-1 [facility] Bilirubin [Mass/Vol] 0.30 mg/dL 0.20-1.00 [facility] Comment on above: For patients on eltr ombopag therapy, use of Dim[place] TBIL is not recommended. Chloride [Moles/Vol] 107 mmol/L 98-107 [facility] Eosinophils/100 WBC (Bld) 2.0 % 0-5 [facility] Glucose [Mass/Vol] 87 mg/dL 74-106 [facility] Neutrophils (Bld) [#/Vol] 3.2 10*3/uL 2.0-7.7 [facility] Neutrophils/100 WBC (Bld) 50.0 % 47-70 [facility] Potassium [Moles/Vol] 4.7 mmol/L 3.5-5.1 [facility] Protein [Mass/Vol] 6.7 g/dL 6.4-8.2 [facility] Sodium [Moles/Vol] 138 mmol/L 136-145 [facility] WBC (Bld) [#/Vol] 6.4 10*3/uL 4.4-11.0 [facility] Blood erythrocytes count (nu mber/volume)Ordered By: Todd Velasquez on 05-14-2023 RBC (Bld) [#/Vol] 3.95 10*6/uL 4.2-5.4 [facility] Blood hemoglobin measurement (mass/volume)Ordered By: Todd Velasquez on 05-14-2023 Hemoglobin (Bld) [Mass/Vol] 12.2 g/dL 12.0-15.0 [facility] Blood lymphocytes/100 leukoc ytesOrdered By: Todd Velasquez on 05-14-2023 Lymphocytes/100 WBC (Bld) 36.5 % 19-41 [facility] Blood monocytes/100 leukocyt esOrdered By: Todd Velasquez on 05-14-2023 Monocytes/100 WBC (Bld) 10.3 % 0-10 [facility] Blood platelet mean volumeOr dered By: Todd Velasquez on 05-14-2023 Platelet mean volume (Bld) [Entitic vol] 12.1 fL 6.2-12.0 [facility] Determination of erythrocyte mean corpuscular volume (MCV)Ordered By: Todd Velasquez on 05-14-2023 MCV (RBC) [Entitic vol] 96.2 fL 81-99 [facility] Hematocrit Auto (Bld) [Volum e fraction]Ordered By: Todd Velasquez on 05-14-2023 Hematocrit (Bld) [Volume fraction] 38.0 % 37-47 [facility] - Chemistry and C hemistry - challengeOrdered By: Todd Velasquez on 05-14-2023 ALP [Catalytic activity/Vol] 111 U/L 45-117 [facility] ALT [Catalytic activity/Vol] 16 U/L 13-56 [facility] CO2 [Moles/Vol] 28.0 mmol/L 21.0-32.0 [facility] Globulin (S) [Mass/Vol] 3.5 g/dL 2.2-4.2 [facility] Urea nitrogen/Creatinine [Mass ratio] 28.6 mg/mg 10-20 [facility] - Hematology and Cell countsOrdered By: Todd Velasquez on 05-14-2023 Erythrocyte distribution width (RBC) [Entitic vol] 46.6 fL 35.1-43.9 [facility] Erythrocyte distribution width (RBC) [Ratio] 13.0 % 11.6-14.6 [facility] Immature granulocytes/100 WBC (Bld) 0.300 % 0.0-0.9 [facility] Comment on above: IG% - Immature Granu locytes (promyelocytes, myelocytes and metamyelocytes) > 1% indicates that a LEFT SHIFT is Present. MCH (RBC) [Entitic mass] 30.9 pg 27.0-32.0 [facility] Nucleated RBC/100 WBC (Bld) [Ratio] 0 % 0-5 [facility] MCHC Auto (RBC) [Mass/Vol]Or dered By: Todd Velasquez on 05-14-2023 MCHC (RBC) [Mass/Vol] 32.1 g/dL 32-36 [facility] No Panel InformationOrdered By: Todd Velasquez on 05-14-2023 Estimated GFR (MDRD) Amer 111 mL/min >60 [facility] Comment on above: GFR Calc Estimated GFR (MDRD) Non-Af Amer 92 mL/min >60 [facility] Comment on above: Non- GFR Calc Valproic Acid (Depakene) Level 62 ug/mL 50-100 [facility] Platelets bldOrdered By: Ignacia Velasquez on 05-14-2023 Platelets (Bld) [#/Vol] 175 10*3/uL 150-450 [facility] Serum or plasma albumin jacob urement (mass/volume)Ordered By: Todd Velasquez on 05-14-2023 Albumin [Mass/Vol] 3.2 g/dL 3.2-5.0 [facility] Serum or plasma albumin/glob ulin mass ratioOrdered By: Todd Velasquez on 05-14-2023 Albumin/Globulin [Mass ratio] 0.9 {ratio} 0.9-2.4 [facility] Serum or plasma calcium jacob urement (mass/volume)Ordered By: Todd Velasquez on 05-14-2023 Calcium [Mass/Vol] 8.8 mg/dL 8.5-10.1 [facility] Serum or plasma creatinine m easurement (mass/volume)Ordered By: Todd Velasquez on 05-14-2023 Creatinine [Mass/Vol] 0.66 mg/dL 0.55-1.02 [facility] Comment on above: The validity of the calculated GFR & GFRAA in patients over 70 years has not been determined. Clinical correlation is essential. Serum or plasma phenytoin me asurement (mass/volume)Ordered By: Todd Velasquez on 05-14-2023 Phenytoin [Mass/Vol] 8.9 mL 10.0-20.0 [facility] Serum or plasma urea nitroge n measurement (mass/volume)Ordered By: Todd Velasquez on 05-14-2023 Urea nitrogen [Mass/Vol] 19 mg/dL 7-18 [place] Thin prep Papanicolaou smear with manual screeningOrdered By: Todd Velasquez on 05-14-2023 Thin prep Papanicolaou smear with manual screening 18 U/L 15-37 [place] Thin prep Papanicolaou smear with manual screening 3 5-15 [place] Absolute lymphocyte countOrd ered By: Todd Velasquez on 11-27-2022 Lymphocytes Auto (Unsp spec) [#/Vol] 2.72 10*3/uL 0.83-4.51 [place] Basophil percentageOrdered B y: Todd Velasquez on 11-27-2022 Basophils/100 WBC (Bld) 0.6 % 0-1 [facility] Bilirubin [Mass/Vol] 0.20 mg/dL 0.20-1.00 [facility] Comment on above: For patients on eltr ombopag therapy, use of [place] TBIL is not recommended. Chloride [Moles/Vol] 107 mmol/L 98-107 [facility] Eosinophils/100 WBC (Bld) 1.8 % 0-5 [place] Glucose [Mass/Vol] 84 mg/dL 74-106 [facility] Neutrophils (Bld) [#/Vol] 3.2 10*3/uL 2.0-7.7 [place] Neutrophils/100 WBC (Bld) 47.4 % 47-70 [place] Potassium [Moles/Vol] 4.7 mmol/L 3.5-5.1 [facility] Protein [Mass/Vol] 7.5 g/dL 6.4-8.2 [facility] Sodium [Moles/Vol] 139 mmol/L 136-145 [facility] WBC (Bld) [#/Vol] 6.7 10*3/uL 4.4-11.0 [facility] Blood erythrocytes count (nu mber/volume)Ordered By: Todd Velasquez on 11-27-2022 RBC (Bld) [#/Vol] 3.67 10*6/uL 4.2-5.4 [facility] Blood hemoglobin measurement (mass/volume)Ordered By: Todd Velasquez on 11-27-2022 Hemoglobin (Bld) [Mass/Vol] 11.6 g/dL 12.0-15.0 [place] Blood lymphocytes/100 leukoc ytesOrdered By: Todd Velasquez on 11-27-2022 Lymphocytes/100 WBC (Bld) 40.6 % 19-41 [place] Blood monocytes/100 leukocyt esOrdered By: Todd Velasquez on 11-27-2022 Monocytes/100 WBC (Bld) 9.3 % 0-10 [facility] Blood platelet mean volumeOr dered By: Todd Velasquez on 11-27-2022 Platelet mean volume (Bld) [Entitic vol] 11.3 fL 6.2-12.0 [place] Determination of erythrocyte mean corpuscular volume (MCV)Ordered By: Todd Velasquez on 11-27-2022 MCV (RBC) [Entitic vol] 97.3 fL 81-99 [facility] Hematocrit Auto (Bld) [Volum e fraction]Ordered By: Todd Velasquez on 11-27-2022 Hematocrit (Bld) [Volume fraction] 35.7 % 37-47 [place] [facility] - Chemistry and C hemistry - challengeOrdered By: Todd Velasquez on 11-27-2022 ALP [Catalytic activity/Vol] 96 U/L 45-117 [place] ALT [Catalytic activity/Vol] 14 U/L 13-56 [place] CO2 [Moles/Vol] 27.0 mmol/L 21.0-32.0 [place] Globulin (S) [Mass/Vol] 4.8 g/dL 2.2-4.2 [facility] Urea nitrogen/Creatinine [Mass ratio] 32.4 mg/mg 10-20 [place] [facility] - Hematology and Cell countsOrdered By: Todd Velasquez on 11-27-2022 Erythrocyte distribution width (RBC) [Entitic vol] 47.7 fL 35.1-43.9 [place] Erythrocyte distribution width (RBC) [Ratio] 13.2 % 11.6-14.6 [place] Immature granulocytes/100 WBC (Bld) 0.300 % 0.0-0.9 [place] Comment on above: IG% - Immature Granu locytes (promyelocytes, myelocytes and metamyelocytes) > 1% indicates that a LEFT SHIFT is Present. MCH (RBC) [Entitic mass] 31.6 pg 27.0-32.0 [place] Nucleated RBC/100 WBC (Bld) [Ratio] 0 % 0-5 [place] MCHC Auto (RBC) [Mass/Vol]Or dered By: Todd Velasquez on 11-27-2022 MCHC (RBC) [Mass/Vol] 32.5 g/dL 32-36 [facility] No Panel InformationOrdered By: Todd Velasquez on 11-27-2022 Estimated GFR (MDRD) Amer 115 mL/min >60 [place] Comment on above: GFR Calc Estimated GFR (MDRD) Non-Af Amer 95 mL/min >60 [place] Comment on above: Non- GFR Calc Valproic Acid (Depakene) Level 72 ug/mL 50-100 [place] Platelets bldOrdered By: Ignacia Velasquez on 11-27-2022 Platelets (Bld) [#/Vol] 187 10*3/uL 150-450 [place] Serum or plasma albumin jacob urement (mass/volume)Ordered By: Todd Velasquez on 11-27-2022 Albumin [Mass/Vol] 2.7 g/dL 3.2-5.0 [facility] Serum or plasma albumin/glob ulin mass ratioOrdered By: Todd Velasquez on 11-27-2022 Albumin/Globulin [Mass ratio] 0.6 {ratio} 0.9-2.4 [place] Serum or plasma calcium jacob urement (mass/volume)Ordered By: Todd Velasquez on 11-27-2022 Calcium [Mass/Vol] 9.1 mg/dL 8.5-10.1 [facility] Serum or plasma creatinine m easurement (mass/volume)Ordered By: Todd Velasquez on 11-27-2022 Creatinine [Mass/Vol] 0.65 mg/dL 0.55-1.02 [facility] Comment on above: The validity of the calculated GFR & GFRAA in patients over 70 years has not been determined. Clinical correlation is essential. Serum or plasma phenytoin me asurement (mass/volume)Ordered By: Todd Velasquez on 11-27-2022 Phenytoin [Mass/Vol] 10.5 mL 10.0-20.0 [facility] Serum or plasma urea nitroge n measurement (mass/volume)Ordered By: Todd Velasquez on 11-27-2022 Urea nitrogen [Mass/Vol] 21 mg/dL 7-18 [place] Thin prep Papanicolaou smear with manual screeningOrdered By: Todd Velasquez on 11-27-2022 Thin prep Papanicolaou smear with manual screening 16 U/L 15-37 [place] Thin prep Papanicolaou smear with manual screening 5 5-15 [place] Serum or plasma phenytoin me asurement (mass/volume)Ordered By: Todd Velasquez on 10-30-2022 Phenytoin [Mass/Vol] 9.8 mL 10.0-20.0 [facility] Basophil percentageOrdered B y: Todd Velasquez on 10-24-2022 Bilirubin [Mass/Vol] 0.30 mg/dL 0.20-1.00 [facility] Comment on above: For patients on eltr ombopag therapy, use of [employer] TBIL is not recommended. Chloride [Moles/Vol] 106 mmol/L 98-107 [facility] Glucose [Mass/Vol] 80 mg/dL 74-106 [facility] Potassium [Moles/Vol] 4.0 mmol/L 3.5-5.1 [facility] Protein [Mass/Vol] 6.6 g/dL 6.4-8.2 [facility] Sodium [Moles/Vol] 141 mmol/L 136-145 [facility] WBC (Bld) [#/Vol] 6.5 10*3/uL 4.4-11.0 [facility] Blood erythrocytes count (nu mber/volume)Ordered By: Todd Velasquez on 10-24-2022 RBC (Bld) [#/Vol] 3.82 10*6/uL 4.2-5.4 [facility] Blood hemoglobin measurement (mass/volume)Ordered By: Todd Velasquez on 10-24-2022 Hemoglobin (Bld) [Mass/Vol] 12.4 g/dL 12.0-15.0 [place] Blood platelet mean volumeOr dered By: Todd Velasquez on 10-24-2022 Platelet mean volume (Bld) [Entitic vol] 11.0 fL 6.2-12.0 [place] Determination of erythrocyte mean corpuscular volume (MCV)Ordered By: Todd Velasquez on 10-24-2022 MCV (RBC) [Entitic vol] 95.5 fL 81-99 [facility] Hematocrit Auto (Bld) [Volum e fraction]Ordered By: Todd Velasquez on 10-24-2022 Hematocrit (Bld) [Volume fraction] 36.5 % 37-47 [place] [facility] - Chemistry and C hemistry - challengeOrdered By: Todd Velasquez on 10-24-2022 ALP [Catalytic activity/Vol] 92 U/L 45-117 [place] ALT [Catalytic activity/Vol] 11 U/L 13-56 [place] CO2 [Moles/Vol] 27.0 mmol/L 21.0-32.0 [place] Globulin (S) [Mass/Vol] 4.1 g/dL 2.2-4.2 [facility] Urea nitrogen/Creatinine [Mass ratio] 20.3 mg/mg 10-20 [place] [facility] - Hematology and Cell countsOrdered By: Todd Velasquez on 10-24-2022 Erythrocyte distribution width (RBC) [Entitic vol] 43.8 fL 35.1-43.9 [place] Erythrocyte distribution width (RBC) [Ratio] 12.7 % 11.6-14.6 [place] MCH (RBC) [Entitic mass] 32.5 pg 27.0-32.0 [place] MCHC Auto (RBC) [Mass/Vol]Or dered By: Todd Velasquez on 10-24-2022 MCHC (RBC) [Mass/Vol] 34.0 g/dL 32-36 [facility] No Panel InformationOrdered By: Todd Velasquez on 10-24-2022 Estimated GFR (MDRD) Amer 127 mL/min >60 [place] Comment on above: GFR Calc Estimated GFR (MDRD) Non-Af Amer 105 mL/min >60 [place] Comment on above: Non- GFR Calc Thyroid Stimulating Hormone (TSH) 3.19 uIU/mL 0.358-3.74 [place] Valproic Acid (Depakene) Level 103 ug/mL 50-100 [place] Platelets bldOrdered By: Ignacia Velasquez on 10-24-2022 Platelets (Bld) [#/Vol] 265 10*3/uL 150-450 [place] Serum or plasma albumin jacob urement (mass/volume)Ordered By: Todd Velasquez on 10-24-2022 Albumin [Mass/Vol] 2.5 g/dL 3.2-5.0 [facility] Serum or plasma albumin/glob ulin mass ratioOrdered By: Todd Velasquez on 10-24-2022 Albumin/Globulin [Mass ratio] 0.6 {ratio} 0.9-2.4 [place] Serum or plasma calcium jacob urement (mass/volume)Ordered By: Todd Velasquez on 10-24-2022 Calcium [Mass/Vol] 8.7 mg/dL 8.5-10.1 [facility] Serum or plasma creatinine m easurement (mass/volume)Ordered By: Todd Velasquez on 10-24-2022 Creatinine [Mass/Vol] 0.59 mg/dL 0.55-1.02 [facility] Comment on above: The validity of the calculated GFR & GFRAA in patients over 70 years has not been determined. Clinical correlation is essential. Serum or plasma phenytoin me asurement (mass/volume)Ordered By: Todd Velasquez on 10-24-2022 Phenytoin [Mass/Vol] 9.6 mL 10.0-20.0 [facility] Serum or plasma urea nitroge n measurement (mass/volume)Ordered By: Todd Velasquez on 10-24-2022 Urea nitrogen [Mass/Vol] 12 mg/dL 7-18 [place] Thin prep Papanicolaou smear with manual screeningOrdered By: Todd Velasquez on 10-24-2022 Thin prep Papanicolaou smear with manual screening 13 U/L 15-37 [place] Thin prep Papanicolaou smear with manual screening 8 5-15 [place] Absolute lymphocyte countOrd ered By: Orville Mendoza on 09-04-2022 Lymphocytes Auto (Unsp spec) [#/Vol] 2.50 10*3/uL 0.83-4.51 [place] Basophil percentageOrdered B y: Orville Mendoza on 09-04-2022 Basophils/100 WBC (Bld) 0.8 % 0-1 [facility] Bilirubin [Mass/Vol] 0.40 mg/dL 0.20-1.00 [facility] Comment on above: For patients on eltr ombopag therapy, use of [place] TBIL is not recommended. Chloride [Moles/Vol] 110 mmol/L 98-107 [facility] Eosinophils/100 WBC (Bld) 1.9 % 0-5 [place] Glucose [Mass/Vol] 78 mg/dL 74-106 [facility] Neutrophils (Bld) [#/Vol] 2.9 10*3/uL 2.0-7.7 [place] Neutrophils/100 WBC (Bld) 46.7 % 47-70 [place] Potassium [Moles/Vol] 4.8 mmol/L 3.5-5.1 [facility] Protein [Mass/Vol] 6.5 g/dL 6.4-8.2 [facility] Sodium [Moles/Vol] 142 mmol/L 136-145 [facility] WBC (Bld) [#/Vol] 6.3 10*3/uL 4.4-11.0 [facility] Blood erythrocytes count (nu mber/volume)Ordered By: Orville Mendoza on 09-04-2022 RBC (Bld) [#/Vol] 3.96 10*6/uL 4.2-5.4 [facility] Blood hemoglobin measurement (mass/volume)Ordered By: Orville Mendoza on 09-04-2022 Hemoglobin (Bld) [Mass/Vol] 12.7 g/dL 12.0-15.0 [place] Blood lymphocytes/100 leukoc ytesOrdered By: Orville Mendoza on 09-04-2022 Lymphocytes/100 WBC (Bld) 39.9 % 19-41 [place] Blood monocytes/100 leukocyt esOrdered By: Orville Mendoza on 09-04-2022 Monocytes/100 WBC (Bld) 10.4 % 0-10 [facility] Blood platelet mean volumeOr dered By: Orville Mendoza on 09-04-2022 Platelet mean volume (Bld) [Entitic vol] 11.6 fL 6.2-12.0 [place] Determination of erythrocyte mean corpuscular volume (MCV)Ordered By: Orville Mendoza on 09-04-2022 MCV (RBC) [Entitic vol] 96.0 fL 81-99 [facility] Hematocrit Auto (Bld) [Volum e fraction]Ordered By: Orville Mendoza on 09-04-2022 Hematocrit (Bld) [Volume fraction] 38.0 % 37-47 [place] [facility] - Chemistry and C hemistry - challengeOrdered By: Orville Mendoza on 09-04-2022 ALP [Catalytic activity/Vol] 108 U/L 45-117 [place] ALT [Catalytic activity/Vol] 12 U/L 13-56 [place] CO2 [Moles/Vol] 26.0 mmol/L 21.0-32.0 [place] Globulin (S) [Mass/Vol] 3.6 g/dL 2.2-4.2 [facility] Urea nitrogen/Creatinine [Mass ratio] 25.3 mg/mg 10-20 [place] [facility] - Hematology and Cell countsOrdered By: Orville Mendoza on 09-04-2022 Erythrocyte distribution width (RBC) [Entitic vol] 45.3 fL 35.1-43.9 [place] Erythrocyte distribution width (RBC) [Ratio] 12.7 % 11.6-14.6 [place] Immature granulocytes/100 WBC (Bld) 0.300 % 0.0-0.9 [place] Comment on above: IG% - Immature Granu locytes (promyelocytes, myelocytes and metamyelocytes) > 1% indicates that a LEFT SHIFT is Present. MCH (RBC) [Entitic mass] 32.1 pg 27.0-32.0 [place] Nucleated RBC/100 WBC (Bld) [Ratio] 0 % 0-5 [place] MCHC Auto (RBC) [Mass/Vol]Or dered By: Orville Mendoza on 09-04-2022 MCHC (RBC) [Mass/Vol] 33.4 g/dL 32-36 [facility] No Panel InformationOrdered By: Orville Mendoza on 09-04-2022 Estimated GFR (MDRD) Amer 138 mL/min >60 [place] Comment on above: GFR Calc Estimated GFR (MDRD) Non-Af Amer 114 mL/min >60 [place] Comment on above: Non- GFR Calc Valproic Acid (Depakene) Level 62 ug/mL 50-100 [place] Platelets bldOrdered By: Russ Mendoza on 09-04-2022 Platelets (Bld) [#/Vol] 180 10*3/uL 150-450 [place] Serum or plasma albumin jacob urement (mass/volume)Ordered By: Orville Mendoza on 09-04-2022 Albumin [Mass/Vol] 2.9 g/dL 3.2-5.0 [facility] Serum or plasma albumin/glob ulin mass ratioOrdered By: Orville Mendoza on 09-04-2022 Albumin/Globulin [Mass ratio] 0.8 {ratio} 0.9-2.4 [place] Serum or plasma calcium jacob urement (mass/volume)Ordered By: Orville Mendoza on 09-04-2022 Calcium [Mass/Vol] 9.0 mg/dL 8.5-10.1 [facility] Serum or plasma creatinine m easurement (mass/volume)Ordered By: Orville Mendoza on 09-04-2022 Creatinine [Mass/Vol] 0.55 mg/dL 0.55-1.02 [facility] Comment on above: The validity of the calculated GFR & GFRAA in patients over 70 years has not been determined. Clinical correlation is essential. Serum or plasma phenytoin me asurement (mass/volume)Ordered By: Orville Mendoza on 09-04-2022 Phenytoin [Mass/Vol] 11.7 mL 10.0-20.0 [facility] Serum or plasma urea nitroge n measurement (mass/volume)Ordered By: Orville Mendoza on 09-04-2022 Urea nitrogen [Mass/Vol] 14 mg/dL 7-18 [place] Thin prep Papanicolaou smear with manual screeningOrdered By: Orville Mendoza on 09-04-2022 Thin prep Papanicolaou smear with manual screening 16 U/L 15-37 [place] Thin prep Papanicolaou smear with manual screening 6 5-15 [place] Absolute lymphocyte counton 06-12-2022 Lymphocytes Auto (Unsp spec) [#/Vol] 2.92 10*3/uL 0.83-4.51 [place] Work Phone: Basophil percentageon 2021 Basophils/100 WBC (Bld) 0.7 % 0-1 [facility] Work Phone: [phone] Bilirubin [Mass/Vol] 0.40 mg/dL 0.20-1.00 [facility] Work Phone: Comment on above: For patients on eltr ombopag therapy, use of [employer] TBIL is not recommended. Chloride [Moles/Vol] 108 mmol/L 98-107 [facility] Work Phone: [phone] Eosinophils/100 WBC (Bld) 1.7 % 0-5 [place] Work Phone: [phone] Glucose [Mass/Vol] 77 mg/dL 74-106 [facility] Work Phone: Neutrophils (Bld) [#/Vol] 3.4 10*3/uL 2.0-7.7 [place] Work Phone: Neutrophils/100 WBC (Bld) 46.5 % 47-70 [place] Work Phone: [phone] Potassium [Moles/Vol] 4.7 mmol/L 3.5-5.1 [facility] Work Phone: Protein [Mass/Vol] 6.5 g/dL 6.4-8.2 [facility] Work Phone: Sodium [Moles/Vol] 141 mmol/L 136-145 [facility] Work Phone: WBC (Bld) [#/Vol] 7.3 10*3/uL 4.4-11.0 [facility] Work Phone: Blood erythrocytes count (nu mber/volume)on 06-12-2022 RBC (Bld) [#/Vol] 3.84 10*6/uL 4.2-5.[address] [facility] Work Phone: Blood hemoglobin measurement (mass/volume)on 06-12-2022 Hemoglobin (Bld) [Mass/Vol] 12.5 g/dL 12.0-15.0 [place] Work Phone: Blood lymphocytes/100 leukoc yteson 06-12-2022 Lymphocytes/100 WBC (Bld) 40.3 % 19-41 [place] Work Phone: Blood monocytes/100 leukocyt eson 06-12-2022 Monocytes/100 WBC (Bld) 10.5 % 0-10 [facility] Work Phone: Blood platelet mean volumeon 06-12-2022 Platelet mean volume (Bld) [Entitic vol] 12.2 fL 6.2-12.0 [place] Work Phone: Determination of erythrocyte mean corpuscular volume (MCV)on 06-12-2022 MCV (RBC) [Entitic vol] 96.9 fL 81-99 [facility] Work Phone: Hematocrit Auto (Bld) [Volum e fraction]on 06-12-2022 Hematocrit (Bld) [Volume fraction] 37.2 % 37-47 [place] Work Phone: Laboratory - Chemistry and C hemistry - challengeon 06-12-2022 ALP [Catalytic activity/Vol] 81 U/L 45-117 [place] Work Phone: ALT [Catalytic activity/Vol] 18 U/L 13-56 [place] Work Phone: CO2 [Moles/Vol] 28.0 mmol/L 21.0-32.0 [place] Work Phone: Globulin (S) [Mass/Vol] 3.6 g/dL 2.2-4.2 [facility] Work Phone: Urea nitrogen/Creatinine [Mass ratio] 32.4 mg/mg 10-20 [place] Work Phone: Laboratory - Hematology and Cell countson 06-12-2022 Erythrocyte distribution width (RBC) [Entitic vol] 45.7 fL 35.1-43.9 [place] Work Phone: Erythrocyte distribution width (RBC) [Ratio] 12.8 % 11.6-14.6 [place] Work Phone: Immature granulocytes/100 WBC (Bld) 0.300 % 0.0-0.9 [place] Work Phone: Comment on above: IG% - Immature Granu locytes (promyelocytes, myelocytes and metamyelocytes) > 1% indicates that a LEFT SHIFT is Present. MCH (RBC) [Entitic mass] 32.6 pg 27.0-32.0 [place] Work Phone: Nucleated RBC/100 WBC (Bld) [Ratio] 0 % 0-5 [place] Work Phone: MCHC Auto (RBC) [Mass/Vol]on 06-12-2022 MCHC (RBC) [Mass/Vol] 33.6 g/dL 32-36 [facility] Work Phone: No Panel Informationon 06-12 Estimated GFR (MDRD) Amer 103 mL/min >60 [place] Work Phone: Comment on above: GFR Calc Estimated GFR (MDRD) Non-Af Amer 85 mL/min >60 [place] Work Phone: Comment on above: Non- GFR Calc Valproic Acid (Depakene) Level 102 ug/mL 50-100 [place] Work Phone: Platelets bldon 06-12-2022 Platelets (Bld) [#/Vol] 155 10*3/uL 150-450 [place] Work Phone: Serum or plasma albumin jacob urement (mass/volume)on 06-12-2022 Albumin [Mass/Vol] 2.9 g/dL 3.2-5.0 [facility] Work Phone: Serum or plasma albumin/glob ulin mass ratioon 06-12-2022 Albumin/Globulin [Mass ratio] 0.8 {ratio} 0.9-2.4 [place] Work Phone: Serum or plasma calcium jacob urement (mass/volume)on 06-12-2022 Calcium [Mass/Vol] 8.9 mg/dL 8.5-10.1 [facility] Work Phone: Serum or plasma creatinine m easurement (mass/volume)on 06-12-2022 Creatinine [Mass/Vol] 0.71 mg/dL 0.55-1.02 [facility] Work Phone: Comment on above: The validity of the calculated GFR & GFRAA in patients over 70 years has not been determined. Clinical correlation is essential. Serum or plasma phenytoin me asurement (mass/volume)on 06-12-2022 Phenytoin [Mass/Vol] 13.3 mL 10.0-20.0 [facility] Work Phone: Serum or plasma urea nitroge n measurement (mass/volume)on 06-12-2022 Urea nitrogen [Mass/Vol] 23 mg/dL 7-18 [place] Work Phone: Thin prep Papanicolaou smear with manual screeningon 06-12-2022 Thin prep Papanicolaou smear with manual screening 17 U/L 15-37 [place] Work Phone: Thin prep Papanicolaou smear with manual screening 5 5-15 [place] Work Phone: Absolute lymphocyte counton 03-20-2022 Lymphocytes Auto (Unsp spec) [#/Vol] 2.29 10*3/uL 0.83-4.51 [place] Work Phone: Basophil percentageon 2021 Basophils/100 WBC (Bld) 0.9 % 0-1 [facility] Work Phone: Bilirubin [Mass/Vol] 0.30 mg/dL 0.20-1.00 [facility] Work Phone: Comment on above: For patients on eltr ombopag therapy, use of [place] TBIL is not recommended. Chloride [Moles/Vol] 106 mmol/L 98-107 [facility] Work Phone: Eosinophils/100 WBC (Bld) 1.5 % 0-5 [place] Work Phone: Glucose [Mass/Vol] 80 mg/dL 74-106 [facility] Work Phone: Neutrophils (Bld) [#/Vol] 3.4 10*3/uL 2.0-7.7 [place] Work Phone: Neutrophils/100 WBC (Bld) 51.9 % 47-70 [place] Work Phone: Potassium [Moles/Vol] 4.2 mmol/L 3.5-5.1 [facility] Work Phone: Protein [Mass/Vol] 6.4 g/dL 6.4-8.2 [facility] Work Phone: Sodium [Moles/Vol] 140 mmol/L 136-145 [facility] Work Phone: WBC (Bld) [#/Vol] 6.5 10*3/uL 4.4-11.0 [facility] Work Phone: Blood erythrocytes count (nu mber/volume)on 03-20-2022 RBC (Bld) [#/Vol] 3.89 10*6/uL 4.2-5.4 [facility] Work Phone: Blood hemoglobin measurement (mass/volume)on 03-20-2022 Hemoglobin (Bld) [Mass/Vol] 12.5 g/dL 12.0-15.0 [place] Work Phone: Blood lymphocytes/100 leukoc yteson 03-20-2022 Lymphocytes/100 WBC (Bld) 35.1 % 19-41 [place] Work Phone: Blood monocytes/100 leukocyt eson 03-20-2022 Monocytes/100 WBC (Bld) 10.1 % 0-10 [facility] Work Phone: Blood platelet mean volumeon 03-20-2022 Platelet mean volume (Bld) [Entitic vol] 11.9 fL 6.2-12.0 [place] Work Phone: Determination of erythrocyte mean corpuscular volume (MCV)on 03-20-2022 MCV (RBC) [Entitic vol] 97.4 fL 81-99 [facility] Work Phone: Hematocrit Auto (Bld) [Volum e fraction]on 03-20-2022 Hematocrit (Bld) [Volume fraction] 37.9 % 37-47 [place] Work Phone: Laboratory - Chemistry and C hemistry - challengeon 03-20-2022 ALP [Catalytic activity/Vol] 79 U/L 45-117 [place] Work Phone: ALT [Catalytic activity/Vol] 16 U/L 13-56 [place] Work Phone: CO2 [Moles/Vol] 27.0 mmol/L 21.0-32.0 [place] Work Phone: Globulin (S) [Mass/Vol] 3.4 g/dL 2.2-4.2 [facility] Work Phone: Urea nitrogen/Creatinine [Mass ratio] 25.4 mg/mg 10-20 [place] Work Phone: Laboratory - Hematology and Cell countson 03-20-2022 Erythrocyte distribution width (RBC) [Entitic vol] 45.1 fL 35.1-43.9 [place] Work Phone: Erythrocyte distribution width (RBC) [Ratio] 12.6 % 11.6-14.6 [place] Work Phone: Immature granulocytes/100 WBC (Bld) 0.500 % 0.0-0.9 [place] Work Phone: Comment on above: IG% - Immature Granu locytes (promyelocytes, myelocytes and metamyelocytes) > 1% indicates that a LEFT SHIFT is Present. MCH (RBC) [Entitic mass] 32.1 pg 27.0-32.0 [place] Work Phone: Nucleated RBC/100 WBC (Bld) [Ratio] 0 % 0-5 [place] Work Phone: MCHC Auto (RBC) [Mass/Vol]on 03-20-2022 MCHC (RBC) [Mass/Vol] 33.0 g/dL 32-36 [facility] Work Phone: No Panel Informationon 03-20 Estimated GFR (MDRD) Amer 111 mL/min >60 [place] Work Phone: Comment on above: GFR Calc Estimated GFR (MDRD) Non-Af Amer 91 mL/min >60 [place] Work Phone: Comment on above: Non- GFR Calc Valproic Acid (Depakene) Level 134 ug/mL 50-100 [place] Work Phone: Platelets bldon 03-20-2022 Platelets (Bld) [#/Vol] 173 10*3/uL 150-450 [place] Work Phone: Serum or plasma albumin jacob urement (mass/volume)on 03-20-2022 Albumin [Mass/Vol] 3.0 g/dL 3.2-5.0 [facility] Work Phone: Serum or plasma albumin/glob ulin mass ratioon 03-20-2022 Albumin/Globulin [Mass ratio] 0.9 {ratio} 0.9-2.4 [place] Work Phone: Serum or plasma calcium jacob urement (mass/volume)on 03-20-2022 Calcium [Mass/Vol] 9.1 mg/dL 8.5-10.1 [facility] Work Phone: Serum or plasma creatinine m easurement (mass/volume)on 03-20-2022 Creatinine [Mass/Vol] 0.67 mg/dL 0.55-1.02 [facility] Work Phone: Comment on above: The validity of the calculated GFR & GFRAA in patients over 70 years has not been determined. Clinical correlation is essential. Serum or plasma phenytoin me asurement (mass/volume)on 03-20-2022 Phenytoin [Mass/Vol] 12.7 mL 10.0-20.0 [facility] Work Phone: Serum or plasma urea nitroge n measurement (mass/volume)on 03-20-2022 Urea nitrogen [Mass/Vol] 17 mg/dL 7-18 [place] Work Phone: Thin prep Papanicolaou smear with manual screeningon 03-20-2022 Thin prep Papanicolaou smear with manual screening 20 U/L 15-37 [place] Work Phone: Thin prep Papanicolaou smear with manual screening 7 5-15 [place] Work Phone: Absolute lymphocyte counton 12-26-2021 Lymphocytes Auto (Unsp spec) [#/Vol] 2.25 10*3/uL 0.83-4.51 [place] Work Phone: Basophil percentageon 2021 Basophils/100 WBC (Bld) 0.6 % 0-1 [facility] Work Phone: Bilirubin [Mass/Vol] 0.40 mg/dL 0.20-1.00 [facility] Work Phone: Comment on above: For patients on eltr ombopag therapy, use of [employer] TBIL is not recommended. Chloride [Moles/Vol] 107 mmol/L 98-107 [facility] Work Phone: Eosinophils/100 WBC (Bld) 1.3 % 0-5 [place] Work Phone: Glucose [Mass/Vol] 79 mg/dL 74-106 [facility] Work Phone: Neutrophils (Bld) [#/Vol] 3.2 10*3/uL 2.0-7.7 [place] Work Phone: Neutrophils/100 WBC (Bld) 50.0 % 47-70 [place] Work Phone: Potassium [Moles/Vol] 4.3 mmol/L 3.5-5.1 [facility] Work Phone: Protein [Mass/Vol] 6.1 g/dL 6.4-8.2 [facility] [facility] Work Phone: Sodium [Moles/Vol] 140 mmol/L 136-145 [facility]: WBC (Bld) [#/Vol] 6.4 10*3/uL 4.4-11.0 [facility] Work Phone: Blood erythrocytes count (nu mber/volume)on 12-26-2021 RBC (Bld) [#/Vol] 3.63 10*6/uL 4.2-5.[address] [facility] Work Phone: Blood hemoglobin measurement (mass/volume)on 12-26-2021 Hemoglobin (Bld) [Mass/Vol] 12.3 g/dL 12.0-15.0 [place] Work Phone: Blood lymphocytes/100 leukoc yteson 12-26-2021 Lymphocytes/100 WBC (Bld) 35.4 % 19-41 [place] Work Phone: Blood monocytes/100 leukocyt eson 12-26-2021 Monocytes/100 WBC (Bld) 12.4 % 0-10 [facility] Work Phone: Blood platelet mean volumeon 12-26-2021 Platelet mean volume (Bld) [Entitic vol] 11.6 fL 6.2-12.0 [place] Work Phone: Determination of erythrocyte mean corpuscular volume (MCV)on 12-26-2021 MCV (RBC) [Entitic vol] 98.1 fL 81-99 [facility] Work Phone: Hematocrit Auto (Bld) [Volum e fraction]on 12-26-2021 Hematocrit (Bld) [Volume fraction] 35.6 % 37-47 [place] Work Phone: Laboratory - Chemistry and C hemistry - challengeon 12-26-2021 ALP [Catalytic activity/Vol] 75 U/L 45-117 [place] Work Phone: ALT [Catalytic activity/Vol] 12 U/L 13-56 [place] Work Phone: CO2 [Moles/Vol] 28.0 mmol/L 21.0-32.0 [place] Work Phone: Globulin (S) [Mass/Vol] 3.1 g/dL 2.2-4.2 [facility] Work Phone: Urea nitrogen/Creatinine [Mass ratio] 26.0 mg/mg 10-20 [place] Work Phone: Laboratory - Hematology and Cell countson 12-26-2021 Erythrocyte distribution width (RBC) [Entitic vol] 44.0 fL 35.1-43.9 [place] Work Phone: Erythrocyte distribution width (RBC) [Ratio] 12.0 % 11.6-14.6 [place] Work Phone: Immature granulocytes/100 WBC (Bld) 0.300 % 0.0-0.9 [place] Work Phone: Comment on above: IG% - Immature Granu locytes (promyelocytes, myelocytes and metamyelocytes) > 1% indicates that a LEFT SHIFT is Present. MCH (RBC) [Entitic mass] 33.9 pg 27.0-32.0 [place] Work Phone: Nucleated RBC/100 WBC (Bld) [Ratio] 0 % 0-5 [place] Work Phone: MCHC Auto (RBC) [Mass/Vol]on 12-26-2021 MCHC (RBC) [Mass/Vol] 34.6 g/dL 32-36 [facility] Work Phone: No Panel Informationon 12-26 Estimated GFR (MDRD) Amer 107 mL/min >60 [place] Work Phone: Comment on above: GFR Calc Estimated GFR (MDRD) Non-Af Amer 88 mL/min >60 [place] Work Phone: Comment on above: Non- GFR Calc Valproic Acid (Depakene) Level 101 ug/mL 50-100 [place] Work Phone: Platelets bldon 12-26-2021 Platelets (Bld) [#/Vol] 170 10*3/uL 150-450 [place] Work Phone: Serum or plasma albumin jacob urement (mass/volume)on 12-26-2021 Albumin [Mass/Vol] 3.0 g/dL 3.2-5.0 [facility] Work Phone: Serum or plasma albumin/glob ulin mass ratioon 12-26-2021 Albumin/Globulin [Mass ratio] 1.0 {ratio} 0.9-2.4 [place] Work Phone: Serum or plasma calcium jacob urement (mass/volume)on 12-26-2021 Calcium [Mass/Vol] 9.0 mg/dL 8.5-10.1 [facility] Work Phone: Serum or plasma creatinine m easurement (mass/volume)on 12-26-2021 Creatinine [Mass/Vol] 0.69 mg/dL 0.55-1.02 [facility] Work Phone: Comment on above: The validity of the calculated GFR & GFRAA in patients over 70 years has not been determined. Clinical correlation is essential. Serum or plasma phenytoin me asurement (mass/volume)on 12-26-2021 Phenytoin [Mass/Vol] 10.5 mL 10.0-20.0 [facility] Work Phone: Serum or plasma urea nitroge n measurement (mass/volume)on 12-26-2021 Urea nitrogen [Mass/Vol] 18 mg/dL 7-18 [place] Work Phone: Thin prep Papanicolaou smear with manual screeningon 12-26-2021 Thin prep Papanicolaou smear with manual screening 19 U/L 15-37 [place] Work Phone: [phone] Thin prep Papanicolaou smear with manual screening 5 5-15 [place] Work Phone: Absolute lymphocyte counton 12-21-2021 Lymphocytes Auto (Unsp spec) [#/Vol] 2.13 10*3/uL 0.83-4.51 [place] Work Phone: Basophil percentageon 2021 Basophils/100 WBC (Bld) 0.7 % 0-1 [facility] Work Phone: Bilirubin [Mass/Vol] 0.40 mg/dL 0.20-1.00 [facility] Work Phone: Comment on above: For patients on eltr ombopag therapy, use of Dimension [place] TBIL is not recommended. Chloride [Moles/Vol] 106 mmol/L 98-107 [facility] Work Phone: Eosinophils/100 WBC (Bld) 1.1 % 0-5 [place] Work Phone: Glucose [Mass/Vol] 73 mg/dL 74-106 [facility] Work Phone: Neutrophils (Bld) [#/Vol] 2.7 10*3/uL 2.0-7.7 [place] Work Phone: Neutrophils/100 WBC (Bld) 48.2 % 47-70 [place] Work Phone: Potassium [Moles/Vol] 4.2 mmol/L 3.5-5.[address] [facility] Work Phone: Protein [Mass/Vol] 6.0 g/dL 6.4-8.2 [facility] Phone: Sodium [Moles/Vol] 140 mmol/L 136-145 [facility] Work Phone: WBC (Bld) [#/Vol] 5.6 10*3/uL 4.4-11.[address] [facility] Work Phone: Blood erythrocytes count (nu mber/volume)on 12-21-2021 RBC (Bld) [#/Vol] 3.59 10*6/uL 4.2-5.[address] [facility] Work Phone: Blood hemoglobin measurement (mass/volume)on 12-21-2021 Hemoglobin (Bld) [Mass/Vol] 11.7 g/dL 12.0-15.0 [place] Work Phone: Blood lymphocytes/100 leukoc yteson 12-21-2021 Lymphocytes/100 WBC (Bld) 37.9 % 19-41 [place] Work Phone: Blood monocytes/100 leukocyt eson 12-21-2021 Monocytes/100 WBC (Bld) 11.7 % 0-10 [facility] Work Phone: Blood platelet mean volumeon 12-21-2021 Platelet mean volume (Bld) [Entitic vol] 11.5 fL 6.2-12.0 [place] Work Phone: Determination of erythrocyte mean corpuscular volume (MCV)on 12-21-2021 MCV (RBC) [Entitic vol] 97.5 fL 81-99 [facility] Work Phone: Hematocrit Auto (Bld) [Volum e fraction]on 12-21-2021 Hematocrit (Bld) [Volume fraction] 35.0 % 37-47 [place] Work Phone: Laboratory - Chemistry and C hemistry - challengeon 12-21-2021 ALP [Catalytic activity/Vol] 65 U/L 45-117 [place] Work Phone: ALT [Catalytic activity/Vol] 13 U/L 13-56 [place] Work Phone: CO2 [Moles/Vol] 28.0 mmol/L 21.0-32.0 [place] Work Phone: Globulin (S) [Mass/Vol] 3.2 g/dL 2.2-4.2 [facility] Work Phone: Urea nitrogen/Creatinine [Mass ratio] 17.9 mg/mg 10-20 [place] Work Phone: Laboratory - Hematology and Cell countson 12-21-2021 Erythrocyte distribution width (RBC) [Entitic vol] 43.6 fL 35.1-43.9 [place] Work Phone: Erythrocyte distribution width (RBC) [Ratio] 12.0 % 11.6-14.6 [place] Work Phone: Immature granulocytes/100 WBC (Bld) 0.400 % 0.0-0.9 [place] Work Phone: Comment on above: IG% - Immature Granu locytes (promyelocytes, myelocytes and metamyelocytes) > 1% indicates that a LEFT SHIFT is Present. MCH (RBC) [Entitic mass] 32.6 pg 27.0-32.0 [place] Work Phone: Nucleated RBC/100 WBC (Bld) [Ratio] 0 % 0-5 [place] Work Phone: MCHC Auto (RBC) [Mass/Vol]on 12-21-2021 MCHC (RBC) [Mass/Vol] 33.4 g/dL 32-36 [facility] Work Phone: No Panel Informationon 12-21 Estimated GFR (MDRD) Amer 111 mL/min >60 [place] Work Phone: Comment on above: GFR Calc Estimated GFR (MDRD) Non-Af Amer 91 mL/min >60 [place] Work Phone: Comment on above: Non- GFR Calc Miscellaneous Test See comment [facility] Work Phone: Comment on above: TEST RESULT UNITS RE F INTERVALEthosuximide(Zarontin),Serum 53 ug/mL 40-100 Detection Limit = 10 TESTING PERFORMED AT [facility]. ORIGINAL REPORT ON FILE IN LAB CONTAINS ADDITIONAL TEST SITE INFORMATION. Platelets bldon 12-21-2021 Platelets (Bld) [#/Vol] 169 10*3/uL 150-450 [place] Work Phone: Serum or plasma albumin jacob urement (mass/volume)on 12-21-2021 Albumin [Mass/Vol] 2.8 g/dL 3.2-5.0 [facility] Work Phone: Serum or plasma albumin/glob ulin mass ratioon 12-21-2021 Albumin/Globulin [Mass ratio] 0.9 {ratio} 0.9-2.4 [place] Work Phone: Serum or plasma calcium jacob urement (mass/volume)on 12-21-2021 Calcium [Mass/Vol] 8.9 mg/dL 8.5-10.1 [facility] Work Phone: Serum or plasma creatinine m easurement (mass/volume)on 12-21-2021 Creatinine [Mass/Vol] 0.67 mg/dL 0.55-1.02 [facility] Work Phone: Comment on above: The validity of the calculated GFR & GFRAA in patients over 70 years has not been determined. Clinical correlation is essential. Serum or plasma phenytoin me asurement (mass/volume)on 12-21-2021 Phenytoin [Mass/Vol] 10.7 mL 10.0-20.0 [facility] Work Phone: Serum or plasma urea nitroge n measurement (mass/volume)on 12-21-2021 Urea nitrogen [Mass/Vol] 12 mg/dL 7-18 [place] Work Phone: Thin prep Papanicolaou smear with manual screeningon 12-21-2021 Thin prep Papanicolaou smear with manual screening 17 U/L 15-37 [place] Work Phone: Thin prep Papanicolaou smear with manual screening 6 5-15 [place] Work Phone: No Panel Informationon 11-23 Thyroid Stimulating Hormone (TSH) 2.89 uIU/mL 0.358-3.74 [place] Work Phone: No Panel Informationon 10-26 Valproic Acid (Depakene) Level 76 ug/mL 50-100 [place] Work Phone: Serum or plasma phenytoin me asurement (mass/volume)on 10-26-2021 Phenytoin [Mass/Vol] 14.0 mL 10.0-20.0 [facility] Work Phone: Absolute lymphocyte counton 10-03-2021 Lymphocytes Auto (Unsp spec) [#/Vol] 3.18 10*3/uL 0.83-4.51 [place] Work Phone: Basophil percentageon 2020 Bilirubin [Mass/Vol] 0.40 mg/dL 0.20-1.00 [facility] Work Phone: Comment on above: For patients on eltr ombopag therapy, use of Dim[place] TBIL is not recommended. Chloride [Moles/Vol] 106 mmol/L 98-107 [facility] Work Phone: Eosinophils/100 WBC (Bld) 1.7 % 0-5 [place] Work Phone: Glucose [Mass/Vol] 73 mg/dL 74-106 [facility] Work Phone: [phone] Comment on above: Please note revised GLUCOSE reference range effective 2017. Neutrophils (Bld) [#/Vol] 2.4 10*3/uL 2.0-7.7 [place] Work Phone: Potassium [Moles/Vol] 4.1 mmol/L 3.5-5.1 [facility] Work Phone: [phone] Protein [Mass/Vol] 6.4 g/dL 6.4-8.2 [facility] Work Phone: Sodium [Moles/Vol] 140 mmol/L 136-145 [facility] Work Phone: WBC (Bld) [#/Vol] 6.4 10*3/uL 4.4-11.0 [facility] Work Phone: Blood erythrocytes count (nu mber/volume)on 10-03-2021 RBC (Bld) [#/Vol] 3.71 10*6/uL 4.2-5.4 [facility] Work Phone: Blood hemoglobin measurement (mass/volume)on 10-03-2021 Hemoglobin (Bld) [Mass/Vol] 12.5 g/dL 12.0-15.0 [place] Work Phone: Blood lymphocytes/100 leukoc yteson 10-03-2021 Lymphocytes/100 WBC (Bld) 49.5 % 19-41 [place] Work Phone: Blood monocytes/100 leukocyt eson 10-03-2021 Monocytes/100 WBC (Bld) 11.0 % 0-10 [facility] Work Phone: Blood platelet mean volumeon 10-03-2021 Platelet mean volume (Bld) [Entitic vol] 12.0 fL 6.2-12.0 [place] Work Phone: Determination of erythrocyte mean corpuscular volume (MCV)on 10-03-2021 MCV (RBC) [Entitic vol] 97.0 fL 81-99 [facility] Work Phone: Hematocrit Auto (Bld) [Volum e fraction]on 10-03-2021 Hematocrit (Bld) [Volume fraction] 36.0 % 37-47 [place] Work Phone: Laboratory - Chemistry and C hemistry - challengeon 10-03-2021 ALP [Catalytic activity/Vol] 80 U/L 45-117 [place] Work Phone: ALT [Catalytic activity/Vol] 21 U/L 13-56 [place] Work Phone: CO2 [Moles/Vol] 28.0 mmol/L 21.0-32.0 [place] Work Phone: Globulin (S) [Mass/Vol] 3.4 g/dL 2.2-4.2 [facility] Work Phone: Urea nitrogen/Creatinine [Mass ratio] 19.7 mg/mg 08-03 [place] Work Phone: Laboratory - Hematology and Cell countson 10-03-2021 Basophils/100 WBC (Unsp spec) 0.6 % 0-1 [place] Work Phone: Erythrocyte distribution width (RBC) [Entitic vol] 46.0 fL 35.1-43.9 [place] Work Phone: Erythrocyte distribution width (RBC) [Ratio] 12.7 % 11.6-14.6 [place] Work Phone: Immature granulocytes/100 WBC (Bld) 0.300 % 0.0-0.9 [place] Work Phone: Comment on above: IG% - Immature Granu locytes (promyelocytes, myelocytes and metamyelocytes) > 1% indicates that a LEFT SHIFT is Present. MCH (RBC) [Entitic mass] 33.7 pg 27.0-32.0 [place] Work Phone: Neutrophils/100 WBC (Bld) 36.9 % 47-70 [place] Work Phone: Nucleated RBC/100 WBC (Bld) [Ratio] 0 % 0-5 [place] Work Phone: MCHC Auto (RBC) [Mass/Vol]on 10-03-2021 MCHC (RBC) [Mass/Vol] 34.7 g/dL 32-36 [facility] Work Phone: No Panel Informationon 10-03 Estimated GFR (MDRD) Amer 95 mL/min >60 [place] Work Phone: Comment on above: GFR Calc Estimated GFR (MDRD) Non-Af Amer 79 mL/min >60 [place] Work Phone: Comment on above: Non- GFR Calc Valproic Acid (Depakene) Level 90 ug/mL 50-100 [place] Work Phone: Platelets bldon 10-03-2021 Platelets (Bld) [#/Vol] 160 10*3/uL 150-450 [place] Work Phone: Serum or plasma albumin jacob urement (mass/volume)on 10-03-2021 Albumin [Mass/Vol] 3.0 g/dL 3.2-5.0 [facility] Work Phone: Serum or plasma albumin/glob ulin mass ratioon 10-03-2021 Albumin/Globulin [Mass ratio] 0.9 {ratio} 0.9-2.4 [place] Work Phone: Serum or plasma calcium jacob urement (mass/volume)on 10-03-2021 Calcium [Mass/Vol] 8.7 mg/dL 8.5-10.1 [facility] Work Phone: Serum or plasma creatinine m easurement (mass/volume)on 10-03-2021 Creatinine [Mass/Vol] 0.76 mg/dL 0.55-1.02 [facility] Work Phone: Comment on above: The validity of the calculated GFR & GFRAA in patients over 70 years has not been determined. Clinical correlation is essential. Serum or plasma phenytoin me asurement (mass/volume)on 10-03-2021 Phenytoin [Mass/Vol] 14.5 mL 10.0-20.0 [facility] Work Phone: Serum or plasma urea nitroge n measurement (mass/volume)on 10-03-2021 Urea nitrogen [Mass/Vol] 15 mg/dL 7-18 [place] Work Phone: Thin prep Papanicolaou smear with manual screeningon 10-03-2021 Thin prep Papanicolaou smear with manual screening 19 U/L 15-37 [place] Work Phone: Thin prep Papanicolaou smear with manual screening 6 5-15 [place] Work Phone: RF Swallowing Function w/ Vi deoon 01-22-2019 RF Swallowing Function w/ Video Patient Name: KATHERYN CHINO Fluoroscopy Exam Date/Time 01/22/2019 13:50:00 EDT Exam RF Swallowing Function w/ Video Ordering Physician DO MENDOZA EUGENE F. Accession Number [id number] [facility] Codes 97337 () Reason For Exam Dysphagia Report CLINICAL [...] HARLAN Transcribed Date and Time: 01/22/2019 4:28 [facility] POULTRY PINNER Modified Barium Swallow Studyon 01-22-2019 POULTRY PINNER Modified Barium Swallow Study Patient Name: KATHERYN CHINO Fluoroscopy Exam Date/Time 01/22/2019 13:50:00 EDT Exam POULTRY PINNER Modified Barium Swallow Study Ordering Physician DO MENDOZA EUGENE F. Accession Number [id number] Reason For Exam Dysphagia, oropharyngeal phase Report [...] 40mg 2x/day). Patient is a resident of extended care facility due to decreased ability to [...] between bites. Recommended Consultations / Follow Up: follow up to address the following goals. Goals: Patient will tolerate recommended diet without evidence of dysphagia or airway penetration. Patient will implement swallowing strategies with minimal cues. Patient will improve swallowing function through oropharyngeal strengthening exercises. G-Code: BEV Radiologist: Dr. Antonio Carlos MD Radiologist Physician Law Librarian: Not applicable Report Dictated on Final Dictating Physician: OLIVIA DUNCAN CCC/JACKI MACKENZIE Signed Date and Time: 01/22/2019 4:43 pm Signed by: OLIVIA DUNCAN CCC/JACKI MACKENZIE Transcribed Date and Time: 01/23/2019 6:58 Normal [facility] POULTRY PINNER Modified Barium Swallow Study Patient Name: KATHERYN CHINO Fluoroscopy Exam Date/Time 01/22/2019 13:50:00 EDT Exam POULTRY PINNER Modified Barium Swallow Study Ordering Physician DO MENDOZA EUGENE F. Accession Number [id number] Reason For Exam Dysphagia, oropharyngeal phase Addendum This exam in the patient's exam history was incorrectly coded to this patient. The billing and report corrections were made on accession number [id number] Final Addendum Signed Date and Time: 01/23/2019 9:55 am Signed by: KENNEL TECHNICIAN, SYSTEM Transcribed Date and Time: 01/22/2019 4:46 [...] Report revised on 01/23/2019 09:55:55 EDT by KENNEL TECHNICIAN, SYSTEM Final Dictating Physician: MD CARLOS HARLAN Signed Date and Time: 01/22/2019 3:28 pm Signed by: MD CARLOS HARLAN Transcribed Date and Time: 01/22/2019 3:29 Normal [facility] MRI BRAIN W/O CONTRAST 78730 on 08-23-2018 MRI BRAIN W/O CONTRAST [id number] Performed at [facility] APPROVED BY: Hayes España MD EXAMINATION: MRI BRAIN W/O CONTRAST [id number] CLINICAL HISTORY: Epilepsy. Ataxia. History of seizure [...] changes throughout the supratentorial white matter. Normal [facility]. Teston 08-12-2018 [facility] [place] Result SEE BELOW Normal [facility] [place] [facility] Comment on above: Result Comment: Etho suximide [...] Laboratory: Performed By: #### G OX #### [place] [address] Phenytoin, Freeon 08-09-2018 Phenytoin, Free SEE BELOW Normal [facility] [place] [facility] Comment on above: Result Comment: Phen ytoin, Free 2.1 H 1.0-2.0 ug/mL Reference ranges and high/low indicator flags are provided as general guidelines only. The treating physician must determine appropriate target levels/dosing based on the specific clinical situation. This test was developed and its performance characteristics determined by [facility]'s [facility] [place] [facility] It has not been cleared or approved by the FDA. [facility] is regulated under CLIA as qualified to perform high-complexity testing. This test is used for clinical purposes. It should not be regarded as investigational or for research. Performing Laboratory: [facility] [address] [place] [address] Performed By: #### P TNFX #### [place] [address] Misc. Teston 08-08-2018 [facility] Order Code ETHOS Normal [facility] [place] [facility] Comment on above: Performed By: #### G OX #### [place] [address] Test Name ETHOSUXIMIDE Normal [facility] [place] [facility] Comment on above: Performed By: #### G OX #### [place] [address] Comprehensive Panelon 2017 Bilirubin [Mass/Vol] 0.3 mg/dL Normal 0.2-1.[address] [facility] Comment on above: Performed By: #### P 14 #### [place] [address] ALP [Catalytic activity/Vol] 103 U/L Normal 46-116 [facility] [place] [facility] Comment on above: Performed By: #### P 14 #### [place] [address] AST [Catalytic activity/Vol] 14 U/L Normal 9-37 [facility] [place] [facility] Comment on above: Performed By: #### P 14 #### [facility] [address] [place] [address] Creatinine [Mass/Vol] 0.74 mg/dL Normal 0.51-0.95 [facility] Comment on above: Performed By: #### P 14 #### [facility] [address] [place] [address] Protein [Mass/Vol] 7.1 g/dL Normal 6.4-8.2 [facility] [place] [facility] Comment on above: Performed By: #### P 14 #### [facility] [address] [place], [place] [address] ALT [Catalytic activity/Vol] 18 U/L Normal 12-78 [facility] [place] [facility] Comment on above: Performed By: #### P 14 #### [facility] [address] [place], [place] [address] Albumin [Mass/Vol] 3.7 g/dL Normal 3.4-5.0 [facility] [place] [facility] Comment on above: Performed By: #### P 14 #### [facility] [address] [place], [place] [address] Anion gap [Moles/Vol] 12 mmol/L Normal 8-16 [facility] Comment on above: Performed By: #### P 14 #### [facility] [address] [place], [place] [address] CO2 [Moles/Vol] 28 mmol/L Normal 21-32 [facility] [place] [facility] Comment on above: Performed By: #### P 14 #### [facility] [address] [place], [place] [address] Urea nitrogen [Mass/Vol] 11 mg/dL Normal 7-18 [facility] [place] [facility] Comment on above: Performed By: #### P 14 #### [facility] [address] [place], [place] [address] Calcium [Mass/Vol] 9.1 mg/dL Normal 8.5-10.1 [facility] [place] [facility] Comment on above: Performed By: #### P 14 #### [facility] [address] [place], [place] [address] Glucose [Mass/Vol] 71 mg/dL Normal 70-99 [facility] [place] [facility] Comment on above: Performed By: #### P 14 #### [facility] [address] [place], [place] [address] Chloride [Moles/Vol] 105 mmol/L Normal 98-[address] [facility] Comment on above: Performed By: #### P 14 #### [facility] [address] [place], [place] [address] Potassium [Moles/Vol] 4.8 mmol/L Normal 3.5-5.1 [facility] Comment on above: Performed By: #### P 14 #### [facility] [address] [place] [address] Sodium [Moles/Vol] 140 mmol/L Normal 136-145 [facility] [place] [facility] Comment on above: Performed By: #### P 14 #### [facility] [address] [place] [address] Dilantin,Randomon 08-07-2018 INR Coag (Bld) [Relative time] 13.0 mg/L Normal 10.0-20.0 [facility] [place] [facility] Comment on above: Performed By: #### D ILAR #### [facility] [address] [place] [address] Hemogramon 08-07-2018 Erythrocyte distribution width (RBC) [Ratio] 12.9 % Normal 11.7-14.4 [facility] [place] [facility] Comment on above: Performed By: #### C BC1 #### [facility] [address] [place] [address] Hematocrit (Bld) [Volume fraction] 43.8 % Normal 34.1-44.9 [facility] [place] [facility] Comment on above: Performed By: #### C BC1 #### [facility] [address] [place] [address] Hemoglobin (Bld) [Mass/Vol] 14.4 g/dL Normal 11.2-15.7 [facility] [place] [facility] Comment on above: Performed By: #### C BC1 #### [place] [address] MCH (RBC) [Entitic mass] 31.4 pg Normal 25.6-32.2 [facility] [place] [facility] Comment on above: Performed By: #### C BC1 #### [facility] [address] [place] [address] MCHC (RBC) [Mass/Vol] 32.9 % Normal 31.6-34.8 [facility] Comment on above: Performed By: #### C BC1 #### [facility] [address] [place] [address] MCV (RBC) [Entitic vol] 95.6 fL High 79.4-94.8 [facility] Comment on above: Performed By: #### C BC1 #### [facility] [address] [place] [id number] Platelet mean volume (Bld) [Entitic vol] 11.7 fL Normal 9.4-12.3 [facility] [place] [facility] Comment on above: Performed By: #### C BC1 #### [facility] [address] [place], [place] [address] Platelets (Bld) [#/Vol] 219 thou/cmm Normal 182-369 [facility] [place] [facility] Comment on above: Performed By: #### C BC1 #### [facility] [address] [place] [id number] RBC (Bld) [#/Vol] 4.58 mil/cmm Normal 3.93-5.22 [facility] [place] [facility] Comment on above: Performed By: #### C BC1 #### [place] [address] RDW SD 45.6 fl Normal 36.4-46.3 [facility] [place] [facility] Comment on above: Performed By: #### C BC1 #### [place] [id number] WBC (Bld) [#/Vol] 5.66 thou/cmm Normal 3.98-10.[address] [facility] Comment on above: Performed By: #### C BC1 #### [place] [address] MDRD GFRon 08-07-2018 GFR/1.73 sq M predicted among non-blacks MDRD (S/P/Bld) [Vol rate/Area] mL/min/{1.73_m2} Normal >60mL/min/ 1.73m2 [facility] [place] [facility] Comment on above: Result Comment: If t he patient is , multiply the result by 1.210. Performed By: #### G FR #### [place] [id number] Valproic Acid,[place].on 2017 Valproic Acid,[place]. 73 mg/L Normal 50-100 [facility] [place] [facility] Comment on above: Performed By: #### V ALPR #### [place] [id number] Ammoniaon 06-06-2018 Ammonia mass conc (P) ug/dL Normal 9-30 [facility] Comment on above: Performed By: #### H EMDF, NH33, CMP3, MG3, VALP3, PTN3 #### [facility] [address] [place] [address] CT Head or Brain w/o Contras ton 06-06-2018 CT Head or Brain w/o Contrast Patient Name: KATHERYN CHINO CT Exam Date/Time 06/06/2018 17:12:[address] Head or Brain w/o Contrast Ordering Physician DWAYNE ROMAN DANIEL M Accession Number [id number] CPT4 Codes 34067 () Reason For Exam seizure, headache Report [...] Transcribed Date and Time: 06/06/2018 5:20 Normal [facility] Comp Metabolic Panelon 06-06 ALT enzyme act/vol 24 U/L Normal 13-69 [facility] Comment on above: Performed By: #### H EMDF, NH33, CMP3, MG3, VALP3, PTN3 #### [facility] [address] [place] [address] Calcium mass conc 10.1 mg/dL Normal 8.4-10.4 [facility] Comment on above: Performed By: #### H EMDF, NH33, CMP3, MG3, VALP3, PTN3 #### [facility] [address] [place] [address] Glucose mass conc 86 mg/dL Normal 70-100 [facility] Comment on above: Performed By: #### H EMDF, NH33, CMP3, MG3, VALP3, PTN3 #### [facility] [address] [place] [address] ALP enzyme act/vol 90 U/L Normal 38-126 [facility] Comment on above: Performed By: #### H EMDF, NH33, CMP3, MG3, VALP3, PTN3 #### [facility] [address] [place] [address] Anion gap molar conc 7 Normal [facility] Comment on above: Performed By: #### H EMDF, NH33, CMP3, MG3, VALP3, PTN3 #### [facility] [address] [place] [address] AST enzyme act/vol 23 U/L Normal 15-46 [facility] Comment on above: Performed By: #### H EMDF, NH33, CMP3, MG3, VALP3, PTN3 #### [facility] [address] [place] [address] Bilirubin mass conc 0.5 mg/dL Normal 0.2-1.3 [facility] Comment on above: Performed By: #### H EMDF, NH33, CMP3, MG3, VALP3, PTN3 #### [facility] [address] [place] [address] CO2 molar conc 29 mmol/L Normal 22-30 [facility] Comment on above: Performed By: #### H EMDF, NH33, CMP3, MG3, VALP3, PTN3 #### [facility] [address] [place] [address] Creatinine mass conc 0.62 mg/dL Normal 0.52-1.25 [facility] Comment on above: Performed By: #### H EMDF, NH33, CMP3, MG3, VALP3, PTN3 #### [facility] [address] [place] [address] GFR/1.73 sq M predicted among blacks MDRD vol rate/area (S/P/Bld) mL/min/{1.73_m2} Normal >60 [facility] Comment on above: Performed By: #### H EMDF, NH33, CMP3, MG3, VALP3, PTN3 #### [facility] [address] [place] [address] GFR/1.73 sq M predicted among non-blacks MDRD vol rate/area (S/P/Bld) mL/min/{1.73_m2} Normal >60 [facility] Comment on above: Result Comment: Sour ce- MDRD equation with creatinine calibration to IDMS(NKDEP) eGFR not recommended for drug dose adjustment Performed By: #### H EMDF, NH33, CMP3, MG3, VALP3, PTN3 #### [facility] [address] [place] [address] Protein mass conc 7.1 g/dL Normal 6.3-8.2 [facility] Comment on above: Performed By: #### H EMDF, NH33, CMP3, MG3, VALP3, PTN3 #### [facility] [address] [place] [address] Urea nitrogen mass conc 15 mg/dL Normal 7-20 [facility] Comment on above: Performed By: #### H EMDF, NH33, CMP3, MG3, VALP3, PTN3 #### [facility] [address] [place] [address] Potassium molar conc 4.7 mmol/L Normal 3.5-5.1 [facility] Comment on above: Performed By: #### H EMDF, NH33, CMP3, MG3, VALP3, PTN3 #### [facility] [address] [place] [address] Sodium molar conc 139 mmol/L Normal 137-145 [facility] Comment on above: Performed By: #### H EMDF, NH33, CMP3, MG3, VALP3, PTN3 #### [facility] [address] [place] [address] Albumin mass conc 4.5 g/dL Normal 3.5-5.0 [facility] Comment on above: Performed By: #### H EMDF, NH33, CMP3, MG3, VALP3, PTN3 #### [facility] [address] [place] [address] Chloride molar conc 103 mmol/L Normal 98-107 [facility] Comment on above: Performed By: #### H EMDF, NH33, CMP3, MG3, VALP3, PTN3 #### [facility] [address] [place] [address] Hemogram w/ Autodiffon 06-06 Abs Baso Cnt 0.1 10*3/uL Normal 0.0-0.2 [facility] Comment on above: Performed By: #### H EMDF, NH33, CMP3, MG3, VALP3, PTN3 #### [facility] [address] [place] [address] Abs Neutrophile Cnt 4.4 10*3/uL Normal 1.8-7.0 [facility] Comment on above: Performed By: #### H EMDF, NH33, CMP3, MG3, VALP3, PTN3 #### [facility] [address] [place] [address] Basophils/100 WBC (Bld) 1.0 % Normal 0.0-2.0 [facility] Comment on above: Performed By: #### H EMDF, NH33, CMP3, MG3, VALP3, PTN3 #### [facility] [address] [place] [address] Eosinophils #/vol (Bld) 0.0 10*3/uL Normal 0.0-0.5 [facility] Comment on above: Performed By: #### H EMDF, NH33, CMP3, MG3, VALP3, PTN3 #### [facility] [address] [place] [address] Eosinophils/100 WBC (Bld) 0.4 % Low 1.0-6.0 [facility] Comment on above: Performed By: #### H EMDF, NH33, CMP3, MG3, VALP3, PTN3 #### [facility] [address] [place] [address] Erythrocyte distribution width Ratio (RBC) 12.8 % Normal 11.5-14.5 [facility] Comment on above: Performed By: #### H EMDF, NH33, CMP3, MG3, VALP3, PTN3 #### [facility] [address] [place] [address] Granulocytes/100 WBC (Bld) 61.3 % Normal 40.0-80.0 [facility] Comment on above: Performed By: #### H EMDF, NH33, CMP3, MG3, VALP3, PTN3 #### [facility] [address] [place] [address] Hematocrit Volume Fraction (Bld) 40.5 % Normal 35.0-47.0 [facility] Comment on above: Performed By: #### H EMDF, NH33, CMP3, MG3, VALP3, PTN3 #### [facility] [address] [place] [address] Hemoglobin mass conc (Bld) 14.1 g/dL Normal 11.7-16.0 [facility] Comment on above: Performed By: #### H EMDF, NH33, CMP3, MG3, VALP3, PTN3 #### [facility] [address] [place] [address] Lymphocytes #/vol (Bld) 2.1 10*3/uL Normal 1.0-4.3 [facility] Comment on above: Performed By: #### H EMDF, NH33, CMP3, MG3, VALP3, PTN3 #### [facility] [address] [place] [address] Lymphocytes/100 WBC (Bld) 28.8 % Normal 20.0-40.0 [facility] Comment on above: Performed By: #### H EMDF, NH33, CMP3, MG3, VALP3, PTN3 #### [facility] [address] [place] [address] MCH Entitic mass (RBC) 32.3 pg Normal 26.0-34.0 [facility] Comment on above: Performed By: #### H EMDF, NH33, CMP3, MG3, VALP3, PTN3 #### [facility] [address] [place] [address] MCHC mass conc (RBC) 34.8 % Normal 32.0-36.0 [facility] Comment on above: Performed By: #### H EMDF, NH33, CMP3, MG3, VALP3, PTN3 #### [facility] [address] [place] [address] MCV Entitic volume (RBC) 93.0 fL Normal 79.0-98.0 [facility] Comment on above: Performed By: #### H EMDF, NH33, CMP3, MG3, VALP3, PTN3 #### [facility] [address] [place] [address] Monocytes #/vol (Bld) 0.6 10*3/uL Normal 0.0-0.8 [facility] Comment on above: Performed By: #### H EMDF, NH33, CMP3, MG3, VALP3, PTN3 #### [facility] [address] [place] [address] Monocytes/100 WBC (Bld) 8.5 % Normal 2.0-10.0 [facility] Comment on above: Performed By: #### H EMDF, NH33, CMP3, MG3, VALP3, PTN3 #### [facility] [address] [place] [address] Platelet mean volume Entitic volume (Bld) 10.1 fL Normal 7.4-10.4 [facility] Comment on above: Performed By: #### H EMDF, NH33, CMP3, MG3, VALP3, PTN3 #### [facility] [address] [place] [address] Platelets #/vol (Bld) 195 10*3/uL Normal 140-440 [facility] Comment on above: Performed By: #### H EMDF, NH33, CMP3, MG3, VALP3, PTN3 #### [facility] [address] [place] [address] RBC #/vol (Bld) 4.36 10*6/uL Normal 3.80-5.20 [facility] Comment on above: Performed By: #### H EMDF, NH33, CMP3, MG3, VALP3, PTN3 #### [facility] [address] [place] [address] WBC #/vol (Bld) 7.2 10*3/uL Normal 3.6-10.7 [facility] Comment on above: Performed By: #### H EMDF, NH33, CMP3, MG3, VALP3, PTN3 #### [facility] [address] [place] [address] Magnesiumon 06-06-2018 Magnesium mass conc 2.0 mg/dL Normal 1.6-2.3 [facility] Comment on above: Performed By: #### H EMDF, NH33, CMP3, MG3, VALP3, PTN3 #### [facility] [address] [place] [address] Phenytoin, Totalon 8 Phenytoin, Total 6.8 ug/mL Low 10.0-20.0 [facility] Comment on above: Performed By: #### H EMDF, NH33, CMP3, MG3, VALP3, PTN3 #### [facility] [address] [place] [address] Valproic Acidon 06-06-2018 Protein mass conc 38 ug/mL Low 50-120 [facility] Comment on above: Performed By: #### H EMDF, NH33, CMP3, MG3, VALP3, PTN3 #### [facility] [address] [place] [address] Vital Signs Date Time Vital Sign Value Performing Clinician Facility 02-25-2025 14:06-0400 Body mass index (BMI) [Ratio] 32.74 kg/m2 Lolita LAO-C Work Phone: [facility] 02-25-2025 14:06-0400 Body weight 81.19 kg Lolita Jain PA-C Work Phone: [facility] 02-25-2025 14:06-0400 Diastolic blood pressure 67 mm[Hg] Lolita Cristobal PA-C Work Phone: [facility] 02-25-2025 14:06-0400 Heart rate 71 /min Lolita Cristobal PA-C Work Phone: [facility] 02-25-2025 14:06-0400 SaO2% (BldA) [Mass fraction] 96 % Lolita Cristobal PA-C Work Phone: [facility] 02-25-2025 14:06-0400 Systolic blood pressure 142 mm[Hg] Lolita Cristobal PA-C Work Phone: [facility] 01-15-2025 08:01-0400 Diastolic blood pressure 73 mm[Hg] Jayant Jimenez MD Work Phone: [facility] 01-15-2025 08:01-0400 Heart rate 76 /min Jayant Jimenez MD Work Phone: [facility] 01-15-2025 08:01-0400 Systolic blood pressure 135 mm[Hg] Jayant Jimenez MD Work Phone: [facility] 01-15-2025 07:54-0400 Body height 157.5 cm Jayant Jimenez MD Work Phone: [facility] 01-15-2025 07:54-0400 Body mass index (BMI) [Ratio] 30.36 kg/m2 Jayant Jimenez MD Work Phone: [facility] 01-15-2025 07:54-0400 Body weight 75.3 kg Jayant Jimenez MD Work Phone: [facility] 01-15-2025 07:54-0400 Respiratory rate 18 /min Jayant Jimenez MD Work Phone: [facility] 12-08-2024 07:28-0500 Body temperature 98.01 [degF] Miriam Hennessy DO Work Phone: [facility] 12-08-2024 07:28-0500 Diastolic blood pressure 69 mm[Hg] Miriam Hennessy DO Work Phone: [facility] 12-08-2024 07:28-0500 Heart rate 70 /min Miriam Hennessy DO Work Phone: [facility] 12-08-2024 07:28-0500 Respiratory rate 18 /min Miriam Hennessy DO Work Phone: [facility] 12-08-2024 07:28-0500 SaO2% (BldA) [Mass fraction] 100 % Miriam Hennessy DO Work Phone: [facility] 12-08-2024 07:28-0500 Systolic blood pressure 136 mm[Hg] Miriam Hennessy DO Work Phone: [facility] 12-03-2024 20:24-0500 Body height 160 cm Miriam Hennessy DO Work Phone: [facility] 12-03-2024 20:24-0500 Body mass index (BMI) [Ratio] 31.87 kg/m2 Miriam Hennessy DO Work Phone: [facility] 12-03-2024 20:24-0500 Body weight 81.6 kg Miriam Hennessy DO Work Phone: [facility] 12-03-2024 16:00-0500 Diastolic blood pressure 66 mm[Hg] Todd Velasquez MD [place] 12-03-2024 16:00-0500 Heart rate 89 /min Todd Velasquez MD [facility] 12-03-2024 16:00-0500 Inhaled oxygen flow rate 4 L/min Todd Velasquez MD [place] 12-03-2024 16:00-0500 Respiratory rate 31 /min Todd Velasquez MD [facility] 12-03-2024 16:00-0500 SaO2% (BldA) [Mass fraction] 96 % Todd Velasquez MD [place] 12-03-2024 16:00-0500 Systolic blood pressure 95 mm[Hg] Todd Velasquez MD [place] 12-03-2024 13:00-0500 Body temperature 98.2 [degF] Todd Velasquez MD [facility] 12-03-2024 09:32-0500 Body height 162.56 cm Todd Velasquez MD [facility] 12-03-2024 09:32-0500 Body mass index (BMI) [Ratio] 34 kg/m2 Todd Velasquez MD [place] 12-03-2024 09:32-0500 Body weight 89.9 kg Todd Velasquez MD [facility] 11-26-2024 10:56-0500 Body height 157.5 cm [facility] 09-24-2024 07:55-0500 Body height 160 cm Jayant Jimenez MD Work Phone: [facility] 09-24-2024 07:55-0500 Body mass index (BMI) [Ratio] 31.89 kg/m2 Jayant Jimenez MD Work Phone: [facility] 09-24-2024 07:55-0500 Body weight 81.65 kg Jayant Jimenez MD Work Phone: [facility] 09-24-2024 07:55-0500 Diastolic blood pressure 81 mm[Hg] Jayant Jimenez MD Work Phone: [facility] 09-24-2024 07:55-0500 Heart rate 77 /min Jayant Jimenez MD Work Phone: [facility] 09-24-2024 07:55-0500 Respiratory rate 16 /min Jayant Jimenez MD Work Phone: [facility] 09-24-2024 07:55-0500 Systolic blood pressure 132 mm[Hg] Jayant Jimenez MD Work Phone: [facility] 09-18-2023 13:27-0500 Diastolic blood pressure 72 mm[Hg] [place] 09-18-2023 13:27-0500 Heart rate 70 /min [facility] 09-18-2023 13:27-0500 Respiratory rate 20 /min [facility] 09-18-2023 13:27-0500 SaO2% (BldA) [Mass fraction] 94 % [place] 09-18-2023 13:27-0500 Systolic blood pressure 141 mm[Hg] [place] 09-18-2023 11:58-0500 Body height 162.56 cm [facility] 09-18-2023 11:58-0500 Body mass index (BMI) [Ratio] 33.7 kg/m2 [place] 09-18-2023 11:58-0500 Body temperature 98.1 [degF] [facility] 09-18-2023 11:58-0500 Body weight 89 kg [facility] Encounters Encounter Date Encounter Type Care Provider Facility Start: 05-27-2025 ambulatory Todd Boyd ty:[place] Start: 04-16-2025 End: 04-16-2025 Telephone encounter Lolita Jain PA-C Work Phone: Rheumatology Start: 04-06-2025 ambulatory Todd Boyd ty:[place] Start: 04-06-2025 [facility] Start: 03-10-2025 End: 03-10-[address] Todd Velasquez Sr., DO Work Phone: [facility] Start: 03-10-2025 End: 03-10-2025 [facility] Start: 03-10-2025 End: 03-10-2025 ambulatory Todd FOX Facility:[place] Start: 03-04-2025 ambulatory Todd Boyd ty:[place] Start: 03-04-2025 [facility] Start: 02-27-2025 ambulatory Todd Boyd ty:[place] Start: 02-27-2025 [facility] Start: 02-26-2025 End: 02-26-2025 ambulatory Guille Corona RPh [facility] Start: 02-26-2025 End: 02-26-2025 Patient encounter procedure Guille Annn [facility] Comment on above: SPP Osteoporosis - T reatment Referral (Teriparatide); Insurance Authorization (Teriparatide PA Submission pending ) Start: 02-26-2025 End: 02-26-2025 Telephone encounter Lolitakathrine Jain PA-C Work Phone: Rheumatology Start: 02-25-2025 End: 02-25-2025 Patient encounter procedure Lolita Martinezbhavani HUNG Work Phone: Rheumatology Comment on above: Osteoporosis without current pathological fracture, unspecified osteoporosis type (Primary Dx); Wheelchair dependent; 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 Start: 02-02-[facility]25 [facility] Start: 02-02-2025 End: 02-02-2025 ambulatory Todd Velasquez Sr. Facility:[place] Start: 01-28-2025 End: 01-28-2025 ambulatory Todd Velasquez MD [place] Work Phone: Start: 01-28-2025 End: 01-28-2025 [facility] Start: 01-28-2025 [facility] Start: 01-28-2025 End: 01-28-2025 ambulatory Todd Velasquez Sr. Facility:[place] Start: 01-19-2025 End: 01-19-2025 ambulatory Todd Velasquez MD [place] Work Phone: Start: 01-19-2025 End: 01-19-2025 Departed Referred Todd Velasquez MD [facility] Start: 01-19-2025 End: 01-19-2025 ambulatory Todd Velasquez Sr. Facility:[place] Start: 01-16-2025 End: 01-19-2025 Telephone encounter Jayant Jimenez MD Work Phone: Neurology Comment on above: Medication Problem ( Lacosamide) Start: 01-15-2025 End: 01-15-2025 Patient encounter kishore Jimenez MD Work Phone: Neurology Epilepsy Comment on above: Intractable epilepsy without status epilepticus, unspecified epilepsy type (HCC); Osteoporosis without current pathological fracture, unspecified osteoporosis type Start: 01-15-2025 End: 01-15-2025 ambulatory ORVILLE MATTEO MENDOZA Facility:[facility] Start: 12-26-2024 End: 12-26-2024 ambulatory Todd Velasquez MD [place] Work Phone: Start: 12-26-2024 End: 12-26-2024 Departed Referred Todd Velasquez MD [facility] Start: 12-26-2024 Registered Referred Todd Velasquez MD [facility] Start: 12-26-2024 End: 12-26-2024 ambulatory Todd FOX Facility:[place] Start: 12-24-2024 End: 12-24-2024 Telephone encounter Jayant [...] 12-15-2024 End: 12-15-2024 ambulatory Todd Velasquez MD [place] Work Phone: Start: 12-15-2024 End: 12-15-2024 Departed Referred Todd Velasquez MD -[facility] Start: 12-15-2024 End: 12-15-2024 ambulatory Todd FOX Facility:[place] Start: 12-10-2024 ambulatory Todd FOX Facili ty:[place] Start: 12-10-2024 Registered Referred Todd Velasquez MD -[facility] Start: 12-04-2024 End: 12-04-2024 Emergency department patient visit [facility] Start: 12-03-2024 End: 12-08-2024 Evaluation and management of inpatient Miriam Hennessy DO Work Phone: [facility] Epilepsy Monitoring Unit 3N Comment on [...] pathological fracture, unspecified osteoporosis type (Primary Dx) Sequins Slinger - O ther Start: 11-26-2024 ambulatory ORVILLE MENDOZA Facility:[facility] Start: 11-26-2024 End: 11-26-2024 Subsequent hospital visit by physician Bone D[facility] Comment on above: 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 osteop orosis [Z13.820] Start: 11-14-2024 ambulatory Toddkathrine Boyd ty:[place] Start: 11-14-2024 Registered Referred Todd Velasquez MD [facility] Start: 11-11-2024 End: 11-11-2024 Telephone encounter Jayant Jimenez MD Work Phone: Neurosurgery Comment on above: Received Outside Med ical Records (Seizure monitoring report ) Refill Request Start: 11-10-2024 End: 11-11-2024 Telephone encounter Jayant Jimenez MD Work Phone: Neurology Comment on above: Seizures Start: 11-08-2024 ambulatory Toddkathrine Boyd ty:[place] Start: 11-08-2024 [facility] Start: 11-07-2024 End: 11-10-2024 Telephone encounter Jayant Jimenez MD Work Phone: Neurology Comment on above: general (seizure mon itoring report) Start: 09-29-2024 ambulatory Toddkathrine Boyd ty:[place] Start: 09-29-2024 Registered Referred Todd Velasquez MD [facility] Start: 09-26-2024 End: 09-26-2024 Telephone encounter Jayant Jimenez MD Work Phone: Neurology Comment on above: Outside Lab Results ([facility]) Start: 09-26-2024 ambulatory Toddkathrine Boyd ty:[place] Start: 09-26-2024 Registered Referred [facility]quez 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 Start: 09-19-2024 End: 09-22-2024 Telephone encounter Jayant Jimenez MD Work Phone: Neurology Comment on above: Outside Lab Results (PHENYTOIN) Start: 09-19-2024 ambulatory Todd Boyd ty:[place] Start: 09-19-2024 Registered Referred Todd Velasquez MD -[facility] Start: 09-17-2024 ambulatory Todd Hwangi ty:[place] Start: 09-17-2024 Registered Referred Todd Velasquez MD [facility] Start: 09-15-2024 ambulatory Todd Hwangi ty:[place] Start: 09-05-2024 End: 09-05-2024 Telephone encounter Jayant Jimenez MD Work Phone: Neurology Comment on above: Forms (Review result s and orders) Start: 09-05-2024 End: 09-05-2024 ambulatory Todd FOX Facility:[place] Start: 08-27-2024 End: 08-29-2024 Telephone encounter Jayant Jimenez MD Work Phone: Neurology Comment on above: Outside Labs Results (VPA) Start: 08-27-2024 End: 08-27-2024 ambulatory Tdod FOX Facility:[place] Start: 08-17-2024 End: 08-20-2024 Evaluation and management of inpatient TAO STARR Facility:[facility] Start: 08-17-2024 End: 08-17-2024 Telephone encounter Francisco Javier Salazar MD Work Phone: General Neurology Start: 08-17-2024 End: 08-17-2024 Emergency department patient visit Hayes Nicholson Facility:[place] Start: 08-14-2024 End: 08-14-2024 ambulatory Todd FOX Facility:[place] Start: 08-06-2024 End: 08-06-2024 ambulatory Todd FOX Facility:[place] Start: 07-07-2024 ambulatory Tdodkathrine FOX Facili ty:[place] Start: 11-05-2023 [facility] Start: 10-29-2023 End: 10-29-2023 ambulatory [place] Work Phone: Start: 10-29-2023 End: 10-29-2023 [facility] Start: 09-25-2023 End: 09-25-2023 ambulatory [place] Work Phone: Start: 09-25-2023 End: 09-25-2023 [facility] Start: 09-18-2023 End: 09-18-2023 Emergency department patient visit [facility] Work Phone: Start: 08-15-2023 End: 08-15-2023 ambulatory [place] Work Phone: Start: 08-15-2023 End: 08-15-2023 [facility] Start: 08-10-2023 Telephone encounter Neurology Provid er Neurology Comment on above: Release Of Medical R ecords Start: 08-07-2023 Telephone encounter Neurology Provid er Neurology Comment on above: Results Start: 08-06-2023 End: 08-06-2023 ambulatory [place] Work Phone: Start: 08-06-2023 End: 08-06-2023 [facility] Start: 05-14-2023 End: 05-14-2023 [facility] Start: 11-27-2022 End: 11-27-2022 ambulatory [place] Work Phone: Start: 11-27-2022 End: 11-27-2022 Departed Referred [facility] Start: 10-30-2022 End: 10-30-2022 Departed [facility]erred [facility] Start: 10-24-2022 End: 10-24-2022 Departed [facility] Start: 10-24-2022 Registered [facility] Start: 09-04-2022 End: 09-04-2022 ambulatory [place] Work Phone: Start: 09-04-2022 End: 09-04-2022 Departed [facility]erred [place] Start: 06-12-2022 End: 06-12-2022 ambulatory [place] Work Phone: Start: 06-12-2022 End: 06-12-2022 Departed Referred [place] Start: 03-20-2022 End: 03-20-2022 Departed [facility]erred [place] Start: 12-26-2021 End: 12-26-2021 Departed [facility]erred [place] Start: 12-26-2021 [facility]istered [facility] Start: 12-21-2021 End: 12-21-2021 Departed [facility]erred [place] Start: 12-21-2021 [facility]istered [facility] Start: 11-23-2021 End: 11-23-2021 Departed [facility]erred [place] Start: 11-23-2021 Registered [facility] Start: 10-26-2021 End: 10-26-2021 Departed [facility]erred [place] Start: 10-03-2021 Registered [facility] Start: 01-22-2019 Patient encounter procedure Orville Mendoza [facility] Start: 06-06-2018 Emergency department patient visit PROVIDER UNKNOWN [facility] Procedures Date Procedure Procedure Detail Performing Clinician Start: 04-06-[address] Todd Velasquez Sr. DO Work Phone: Start: 03-10-[address] Todd Velasquez Sr. DO Work Phone: Comment on above: Test Ordered: [id number] LacosamideTest(s) 0 00242-Twewxfaykndwa developed and its performance characteristicsdetermined by [employer]. It has not been cleared or approvedby the Food and Drug Administration.Lacosamide 8.0 ug/mL Reference Range: 5.0-10.0 Limit of Detection 0.5 Mean plasma concentrations following maintenance dose 200 mg/day 4.99 +/- 2.51 ug/mL 400 mg/day 9.35 +/- 4.22 ug/mL 600 mg/day 12.46 +/- 5.60 ug/mLPerformed at: [facility] [address] [id number] Director: Nahed Naidu MD, Phone: [phone] at: [facility] [employer] [id number] Director: Haris Peraza PhD, Phone: [phone] Start: 02-27-2025 Calcium measurement Todd Velasquez MD Start: 02-27-2025 Electrophoresis: [id number] Dr. Gutierrez Ruiz DO Work Phone: Start: 02-27-2025 Electrophoresis: [id number] Dr. Gutierrez Ruiz DO Work Phone: Start: 02-27-2025 Electrophoresis: gamma globulin Dr. Todd Velasquez Sr. DO Work Phone: Start: 02-27-2025 Parathyroid hormone measurement Todd keenan MD Start: 02-27-[address] Todd Velasquez Sr. DO Work Phone: Comment on above: Test Ordered: [id number] C-Telopeptide, Seru mC-Telopeptide, Serum 197 pg/mL ES Reference Range: .Reference Range:Premenopausal Women: 34 - 635Postmenopausal Women: 34 - 1037Performed at: ES - [facility] [id number] [place], [place] [id number] Director: Felix Bonilla MD, Phone: [phone] at: CB - [facility] [id number] [place], [place] [id number] Director: Haris Peraza PhD, Phone: [phone] Start: 02-27-2025 Serum inorganic phosphate measurement Todd [...] 12-04-2024 Ct head/brain w/o contrast material Charley Velez DO Work Phone: Start: 12-04-2024 Drug screen quant dipropylacetic acid free Susan Reyes MD Work Phone: Start: 12-04-2024 Basic metabolic panel calcium total Fazal Garza MD Work Phone: Start: 12-04-2024 Drug assay valproic dipropylacetic acid total Charley Velez DO Work Phone: Start: 12-03-2024 Culture bacterial [...] Start: 12-03-2024 Radiologic exam chest single view Rancho Zhou PA-C Work Phone: Start: 12-03-2024 Respiratory pathogens DNA and RNA panel - Nasopharynx by RUTH with non-probe detection Fazal Garza MD Work Phone: Start: 12-03-2024 SARS-COV-2, FLU A/B, AND RSV COMBO Rancho Zhou PA-C Work Phone: Start: 12-03-2024 Bacteria identified in Blood by Culture Rancho Zhou PA-C Work Phone: Start: 12-03-2024 Comprehensive metabolic panel Rancho Grid er PA-C Work Phone: Start: 12-03-2024 Plain [...] Jimenez Start: 09-18-2023 Plain chest X-ray Start: 12-05-2023 CT of head without contrast Start: 10-24-2022 Thyrotropin [Units/volume] in Serum or Plasma Miriam Hennessy DO Work Phone: Plan of Treatment Date Care Activity Detail Author Start: 12-08-2027 Diabetes Screening Diabetes Screening [facility] Start: 08-18-2027 Diabetes Screening Diabetes Screening [facility] Start: 11-26-2026 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 osteoporosis [facility] Start: 07-17-2025 End: 07-17-2025 Patient encounter procedure 07/17/2025 10:00 AM EDT Office Visit Neurology Epilepsy [address] [place] [address] Jayant Jimenez MD [address] [place] [address] 6 month follow-up Neurology Epilepsy Comment on above: 6 month follow-up Start: 06-15-2025 Influenza vaccination [facility] Start: 05-28-2025 End: 05-28-2025 Patient encounter procedure 05/28/2025 2:30 PM EDT Office Visit Rheumatology [address] [place] [address] Lolita Jain PA-C [address] [place] [address] 3 month follow up Rheumatology Comment on above: 3 month follow up Start: 02-27-2025 Procedure [place] Start: 02-25-2025 End: 02-25-2025 Patient encounter procedure 02/25/2025 3:00 PM EDT Office Visit Rheumatology [address] [place] [address] Lolita Jain PA-C [address] [place] [address] osteoporosis Rheumatology Comment on above: osteoporosis Start: 02-25-2025 End: 05-27-2025 25-hydroxyvitamin D3 [Mass/volume] in Serum or Plasma VITAMIN D 25 HYDROXY Lab Routine Osteoporosis without current pathological fracture, unspecified osteoporosis type Expected: 02/25/2025, Expires: 05/27/2025 [facility] Comment on above: Expected: 02/25/2025, Expires: Start: 02-25-2025 End: 05-27-2025 Basic metabolic 2000 panel - Serum or Plasma BASIC METABOLIC PANEL Lab Routine Osteoporosis without current pathological fracture, unspecified osteoporosis type Expected: 02/25/2025, Expires: 05/27/2025 [facility] Work Phone: Comment on above: Expected: 02/25/2025, Expires: Start: 02-25-2025 End: 05-27-2025 Calcium.ionized [Moles/volume] in Blood CALCIUM, IONIZED Lab Routine Osteoporosis without current pathological fracture, unspecified osteoporosis type Expected: 02/25/2025, Expires: 05/27/2025 [facility] Comment on above: Expected: 02/25/2025, Expires: Start: 02-25-2025 End: 05-27-2025 Collagen crosslinked C-telopeptide [Mass/volume] in Serum or Plasma C TELOPEPTIDE, BETA Lab Routine Osteoporosis without current pathological fracture, unspecified osteoporosis type Expected: 02/25/2025, Expires: 05/27/2025 [facility] Comment on above: Expected: 02/25/2025, Expires: Start: 02-25-2025 End: 05-27-2025 Magnesium [Mass/volume] in Serum or Plasma MAGNESIUM Lab Routine Osteoporosis without current pathological fracture, unspecified osteoporosis type Expected: 02/25/2025, Expires: 05/27/2025 [facility] Comment on above: Expected: 02/25/2025, Expires: Start: 02-25-2025 End: 05-27-2025 Parathyrin.intact [Mass/volume] in Serum or Plasma PTH INTACT Lab Routine Osteoporosis without current pathological fracture, unspecified osteoporosis type Expected: 02/25/2025, Expires: 05/27/2025 [facility] Comment on above: Expected: 02/25/2025, Expires: Start: 02-25-2025 End: 05-27-2025 Phosphate [Mass/volume] in Serum or Plasma PHOSPHORUS INORGANIC Lab Routine Osteoporosis without current pathological fracture, unspecified osteoporosis type Expected: 02/25/2025, Expires: 05/27/2025 [facility] Comment on above: Expected: 02/25/2025, Expires: Start: 02-25-2025 End: 05-27-2025 PROTEIN ELECT RND UR W/INTERP PROTEIN ELECT RND UR W/INTERP Lab Routine Osteoporosis without current pathological fracture, unspecified osteoporosis type Expected: 02/25/2025, Expires: 05/27/2025 [facility] Comment on above: Expected: 02/25/2025, Expires: Start: 02-25-2025 End: 05-27-2025 PROTEIN ELECTROPHORESIS SERUM W/INTERP PROTEIN ELECTROPHORESIS SERUM W/INTERP Lab Routine Osteoporosis without current pathological fracture, unspecified osteoporosis type Expected: 02/25/2025, Expires: 05/27/2025 [facility] Comment on above: Expected: 02/25/2025, Expires: Start: 01-15-2025 End: 01-15-2025 Patient encounter procedure 01/15/2025 8:00 AM EDT Office Visit Neurology Epilepsy [address] [address] Jayant Jimenez MD [address] [place] [address] 3 month follow-up Neurology Epilepsy Comment on above: 3 month follow-up Start: 12-03-2024 [place] Start: 11-26-2024 End: 11-26-2024 Patient encounter procedure 11/26/2024 10:30 AM EST Appointment [facility] [address] [place] [place] [address] Bone Density(TBS) [facility] Comment on above: Bone Density(TBS) Start: 11-25-2024 End: 11-25-2024 Patient encounter procedure 11/25/2024 8:00 AM EST Appointment [facility] [place], [place] [id number] Bone Density(TBS) RADIO BONE DENSITY [facility] Comment on above: Bone Density(TBS) Start: 10-15-2024 Advance Directive Discussion Advance Directive Discussion [facility] Start: 09-24-2024 End: 09-24-2025 Ammonia [Moles/volume] in Plasma AMMONIA Lab Routine 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 osteoporosis Nonintractable generalized idiopathic epilepsy without status epilepticus (HCC) Expected: 09/24/2024, Expires: 09/24/2025 [facility] Work Phone: Comment on above: Expected: 09/24/2024, Expires: Start: 09-24-2024 End: 09-24-2024 Patient encounter procedure 09/24/2024 8:00 AM EST Office Visit Neurology Epilepsy [address] [place] [address] Jayant Jimenez MD [address] [place] [address] Hospital Follow up Neurology Epilepsy Comment on above: Hospital Follow up Start: 06-15-2024 Covid-19 Vaccine ( season) Covid-19 Vaccine ( season) [facility] Start: 06-15-2024 Influenza vaccination Influenza Vaccine (#1) [facility] Start: 10-24-2023 Thyroid stimulating hormone measurement TSH Level [facility] Start: 10-15-2023 Advance Directive Discussion Advance Directive Discussion [facility] Start: 09-18-2023 [place] Start: 09-18-2023 Seizure precautions [place] Start: 06-15-2023 Influenza vaccination Influenza Vaccine (#1) [facility] Start: 10-15-2022 Advance Directive Discussion Advance Directive Discussion [facility] Start: 10-15-2022 Depression Assessment Depression Assessment [facility] Start: 2022 RSV Immunization for Adults (1 - 1-dose 75+ series) RSV Immunization for Adults (1 - 1-dose 75+ series) [facility] Start: 2022 RSV Vaccine (1 - 1-dose 75+ series) RSV Vaccine (1 - 1-dose 75+ series) [facility] Start: 08-07-2021 Diabetes Screening Diabetes Screening [facility] Start: 2012 Bone Density Screening Bone Density Screening [facility] Start: 2012 Pneumococcal Vaccine: 65+ (1 - PCV) Pneumococcal Vaccine: 65+ (1 - PCV) [facility] Start: 2012 Pneumococcal Vaccine: 65+ (1 of 1 - PCV) Pneumococcal Vaccine: 65+ (1 of 1 - PCV) [facility] Start: 2012 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 osteoporosis Bone Density Screening [facility] Start: 06-15-2012 Medicare Annual Wellness Visit Medicare Annual Wellness Visit [facility] Start: 2007 RSV Vaccine (1 - 1-dose 60+ series) RSV Vaccine (1 - 1-dose 60+ series) [facility] Start: 1997 Pneumococcal Vaccine: 50+ (1 of 1 - PCV) Pneumococcal Vaccine: 50+ (1 of 1 - PCV) [facility] Start: 1997 Pneumococcal Vaccine: 50+ Years (1 of 1 - PCV) Pneumococcal Vaccine: 50+ Years (1 of 1 - PCV) [facility] Start: 1997 Shingrix Vaccine (1 of 2) Shingrix Vaccine (1 of 2) [facility] Start: 1997 Zoster Vaccines (1 of 2) Zoster Vaccines (1 of 2) [facility] Start: 1966 DTaP/Tdap/Td Vaccines (1 - Tdap) DTaP/Tdap/Td Vaccines (1 - Tdap) [facility] Start: 1966 Urine microalbumin profile DTaP,Tdap,Td Vaccine (1 - Tdap) [facility] Start: 1965 Anxiety Screening Anxiety Screening [facility] Start: 1965 Depression Screening Depression Screening [facility] Start: 1965 Hepatitis C Screening Hepatitis C Screening [facility] Start: 1965 Hepatitis C screening Hepatitis C Screening [facility] Start: 1959 Depression Monitoring Depression Monitoring [facility] Start: 01-07-1946 Covid-19 Vaccine (#1) Covid-19 Vaccine (#1) [facility] Start: 1947 Lipid panel Lipid Panel [facility] Start: 1945 Medicare Annual Wellness (AWV) Medicare Annual Wellness (AWV) [facility] Albumin/Globulin [Ma ss Ratio] in Serum or Plasma by Electrophoresis [facility] End: 10-24-2025 BD DXA TRABECULAR BONE SCORE (TBS) BD DXA TRABECULAR BONE SCORE (TBS) Radiology Routine 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 osteoporosis 1 Occurrences starting 09/24/2024 until 10/24/2025 [facility] Comment on above: 1 Occurrences starting 09/24/2024 until 10/24/2025 End: 11-26-2024 BD DXA TRABECULAR BONE SCORE (TBS) [facility] Comment on above: 1 Occurrences starting 11/26/2024 until 11/26/2024 CALCIUM, 24 HR URINE CALCIUM, 24 HR URINE Lab Routine Osteoporosis without current pathological fracture, unspecified osteoporosis type Ordered: 02/25/2025 [facility] Comment on above: Ordered: 02/25/2025 CREATININE, 24 HOUR URINE CREATININE, 24 HOUR URINE Lab Routine Osteoporosis without current pathological fracture, unspecified osteoporosis type Ordered: 02/25/2025 [facility] Comment on above: Ordered: 02/25/2025 End: 10-24-2025 DXA Skeletal system.axial Views for bone density DXA-AXIAL SKELETON Radiology Routine 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 receptors and estrogen levels 1 Occurrences starting 09/24/2024 until 10/24/2025 [facility] Comment on above: 1 Occurrences starting 09/24/2024 until 10/24/2025 End: 11-26-2024 DXA Skeletal system.axial Views for bone density [facility] Work Phone: Comment on above: 1 Occurrences starting 11/26/2024 until 11/26/2024 [facility]roph[facility]: [facility] Electrophoresis: [id number] [place] Electrophoresis: [id number] [place] Electrophoresis: franky ma globulin [place] Globulin measurement [place] End: 12-04-2024 [facility] Work Phone: Comment on above: Once (Lab) for 1 Occurrences starting until 12/04/2024 Patient Education ED Seizure, Re current (Adult) [place] Work Phone: Patient referral [facility] Work Phone: Protein electrophore sis panel - Serum or Plasma [place] Serum protein electrophoresis [place] Total globulins measurement [place] Immunizations Immunization Date Immunization Notes Care Provider Karishma long 07-11-2022 influenza virus vacc ine, unspecified formulation Miriam Hennessy DO Work Phone: [facility] Payers Date Payer Category Payer Self-pay [id number] 2022 [place] [id number] 2022 Medicaid [id number] 2016 Medicare supplementa l policy (as second payer) [employer] MEDICARE SUPPLEMENT [id number] 2016 Private Health Insurance 2016 Private Health Insurance [id number] 2015 Medicare [id number] 2012 Medicare 2012 Medicare [id number] 1945 Unknown [id number] .668 1945 Unknown [id number] 2.16.840.1.480406.3.579.2 .668 Unknown [id number] 2.16.840.1.973850.3.579.2 .462 Unknown [id number] 2.16.840.1.740882.3.579.2 .462 Unknown [id number] 2.16.840.1.362981.3.579.2 .462 Unknown [id number] 2.16.840.1.300310.3.579.2 .462 Unknown [id number] 2.16.840.1.718995.3.579.2 .462 Unknown [id number] 2.16.840.1.063274.3.579.2 .462 Unknown [id number] 2.16.840.1.166185.3.579.2 .462 Unknown [id number] 2.16.840.1.675408.3.579.2 .462 Unknown [id number] 2.16.840.1.050815.3.579.2 .462 Unknown [id number] 2.16.840.1.244735.3.579.2 .462 Unknown [id number] 2.16.840.1.161854.3.579.2 .462 Unknown [id number] 2.16.840.1.357710.3.579.2 .462 Unknown [id number] 2.16.840.1.692024.3.579.2 .462 Unknown [id number] 2.16.840.1.378853.3.579.2 .462 Unknown [id number] 2.16.840.1.573042.3.579.2 .462 Unknown [id number] 2.16.840.1.362454.3.579.2 .462 Unknown [id number] 2.16.840.1.617723.3.579.2 .462 Unknown [id number] 2.16.840.1.661077.3.579.2 .462 Unknown [id number] 2..840.1.409991.3.579.2 .462 Social History Date Type Detail Facility [facility] [place] Work Phone: Start: 1945 Sex Assigned At Female [facility] Start: 08-07-2018 End: 09-24-2024 Tobacco smoking status NHIS Never smoked tobacco [facility] Start: 08-07-2018 End: 09-24-2024 Tobacco use and exposure Smokeless tobacco non-user [facility] Start: 09-01-2019 End: 09-19-2020 History of Social function [facility] Start: 09-01-2019 End: 09-19-2020 Tobacco use panel [facility] Adult Depression Screening Assessment 0 [facility] Start: 1945 Sex Assigned At Not on file [facility] Start: 09-18-2023 [facility] [place] Has [employer], [employer], or water company threatened to shut off services in your home in past 12Mo No [facility] (I/We) worried wheth er (my/our) food would run out before (I/we) got money to buy more. Never true [facility] History of tobacco use Passive smoker [facility] Start: 01-27-2020 Alcoholic beverage intake Current non-drinker of alcohol (finding) [facility] Are you now , , , , never or living with a partner? Never [facility] How often to you hav e a drink containing alcohol? Never [facility] How hard is it for y ou to pay for the very basics like food, housing, medical care, and heating Not very hard [facility] Do you feel stress - tense, restless, nervous, or anxious, or unable to sleep at night because your mind is troubled all the time - these days [OSQ] Not at all [facility] Start: 05-15-2022 End: 02-10-2025 Sex Female (finding) [facility] Medical Equipment Procedure Code Equipment Code Equipment Origin al Text Equipment Identifier Dates Use 1 pen needle once daily as directed for Teriparatide injections [id number] Start: 03-03-2025 Functional Status Date Assessment Result Facility 08-20-2024 Are you deaf, or do you have serious difficulty hearing No 08/20/2024 11:29 AM Jennifer Coy RN No [facility] 08-20-2024 Are you blind, or do you have serious difficulty seeing, even when wearing glasses No 08/20/2024 11:29 AM Jennifer Coy RN No [facility] 08-20-2024 Do you have serious difficulty walking or climbing stairs Yes 08/20/2024 11:29 AM Jennifer Coy RN Yes [facility] 08-20-2024 Do you have difficul ty dressing or bathing Yes 08/20/2024 11:29 AM Jennifer Coy RN Yes [facility] 08-20-2024 Because of a physica l, mental, or emotional condition, do you have difficulty doing errands alone such as visiting a physician's office or shopping Yes 08/20/2024 11:29 AM Jennifer Coy RN Yes [facility] Mental Status Date Assessment Result Facility 12-03-2024 Cognitive function Level Of Cons ciousness Awake;Appropriate;Follows Commands;Drowsy [place] Work Phone: 08-20-2024 Because of a physica l, mental, or emotional condition, do you have serious difficulty concentrating, remembering, or making decisions Yes 08/20/2024 11:29 AM Jennifer Coy RN Yes [facility] 09-18-2023 Cognitive function Voice/Name [facility] Work Phone: Clinical Notes 08-08-2023 to 04-16-2025 Telephone Encounter - Shavonne Sinclair RN - 04/16/2025 10:19 AM EDTTelephone Encounter - Shavonne Sinclair RN - 04/16/2025 10:19 AM EDTTelephone Encounter - Jacki SumnerOLIVIA - 02/26/2025 2:54 PM EDT Note Date & Type Note Facility 04-16-2025 Telephone encounter Note Telephone encounter faxed. Shavonne Sinclair RN [facility] 04-16-2025 Miscellaneous Notes Telephone encounter faxed. Shavonne Sinclair RN Received outside medical records from [facility] dated 04/06/25 PTH level is 76 The [...] don't use in patients who have had WI/Stroke in the past year. She will review with Katheryn and ERNESTINE and let us know preference moving forward regarding treatment. Thanks KG Please fax this phone encounter to [phone] for their records documented in this encounter [facility] 04-16-2025 Telephone encounter Note Received outside medical records from [facility] dated 04/06/25 PTH level is 76 The PTH has worsened despite increasing patient calcium and vitiatin D Called and spoke with nurse lenin Ferrara. I will need patient to see Endocrinology [...] don't use in patients who have had WI/Stroke in the past year. She will review with Katheryn and ERNESTINE and let us know preference moving forward regarding treatment. Thanks KG Please fax this phone encounter to [phone] for their records [facility] 02-26-2025 Telephone encounter Note Hermann Avalos from [facility] called back. Message from Lolita Jain PA-C given and she verbalized understanding. [facility] 02-26-2025 Miscellaneous Notes Hermann Avalos from [facility] called back. Message from Lolita Jain PA-C given and she verbalized understanding. Ok to disregard 24 hour urine testing. Just have her take calcium citrate 600 mg daily, this will be fine with her current dietary intake. Volodymyr from [facility] called into office requesting clarification of calcium citrate supplement. Per office note SHILO velazquez states "The recommendation is 7152-3510 mg of calcium daily between diet and supplement. If she continues to eat 3 servings of dairy per day, I recommend additional 600 mg daily via calcium citrate supplement. " Office note faxed to [facility]. Nurse states that patient in almost completely incontinence and they state a 24 hr urine will be difficult. Please advise. Felipa Zuñiga LPN documented in this encounter [facility] 02-26-2025 Telephone encounter Note Ok to disregard 24 hour urine testing. Just have her take calcium citrate 600 mg daily, this will be fine with her current dietary intake. [facility] 02-26-2025 Telephone encounter Note Volodymyr from [facility] called into office requesting clarification of calcium citrate supplement. Per office note SHILO velazquez states "The recommendation is 8498-3511 mg of calcium daily between diet and supplement. If she continues to eat 3 servings of dairy per day, I recommend additional 600 mg daily via calcium citrate supplement. " Office note faxed to [facility]. Nurse states that patient in almost completely incontinence and they state a 24 hr urine will be difficult. Please advise. Felipa Zuñiga LPN [facility] Work Phone: 02-26-2025 History of Present illness Narrative [facility] received prescription(s) for Teriparatide from Lolita Jain 's office. Benefits investigation was conducted, indicating that a prior authorization is required by [facility] Note will be updated once prior authorization has been submitted. Petrnoa Almanza CPhT (Dee) [facility] Neurology/Cardiology/Infections Disease [facility] P: F: documented in this encounter [facility] 02-26-2025 Note HNO ID: [id number] Author: ?, ?, ? Service: ? Author Type: ? Type: Progress Notes Filed: 02/26/2025 07:55 Note Text: [facility] received prescription(s) for Teriparatide from Lolita Jain 's office. Benefits investigation was conducted, indicating that a prior authorization is required by patient's insurance plan with [employer]. Note will be updated once prior authorization has been submitted. Krystle Fraga (Dee) [facility] Neurology/Cardiology/Infections Disease [facility] P: F: [facility] 02-26-2025 Note HNO ID: [id number] Author: ?, ?, ? Service: ? Author Type: ? Type: Progress Notes Filed: 02/27/2025 07:44 Note Text: [facility] received prescription(s) for Teriparatide PA was approved with details listed below. Plan Name Inderjit LAO reference number: [id number] Approval Dates: 10/15/24 - 02/16/27 Prescriptions will now be processed through [facility] for determination of next steps. Krystle Fraga (Dee) [facility] Neurology/Cardiology/Infections Disease [facility] P: F: [facility] 02-26-2025 Note HNO ID: [id number] Author: GUILLE CORONA RPh Service: ? Author Type: Pharmacist Type: Progress Notes Filed: 04/19/2025 14:37 Note Text: Per 04-16-25 encounter from SHILO Velazquez: Received outside medical records from [facility] dated 04/06/25 PTH level is 76 The [...] don't use in patients who have had WI/Stroke in the past year. She will review with Yeni and let us know preference moving forward regarding treatment. Teriparatide start on hold; at this time, no further action required by [facility]. Guille Corona, PharmD, CSP, MSCS Pharmacist, [facility] 02-26-2025 Note HNO ID: [id number] Author: ?, ?, ? Service: ? Author Type: ? Type: Progress Notes Filed: 02/26/2025 16:22 Note Text: [facility] received prescription(s) for Teriparatide PA was initiated and pending review. Plan Name: Kameronscriela Plan Agent/Castellanos: [facility] castellanos [id number] Case: [id number] Timeline: magdalena Almanza CPhT (Dee) Lead [facility] Neurology/Cardiology/Infections Disease [facility] P: F: [facility] 02-25-2025 Instructions Lolita Jain PA-C - 02/25/2025 [...] prescription for Forteo (teriparatide) injections to the [facility] they will reach out regarding shipment Follow up 3 months documented in this encounter [facility] 02-25-2025 History of Present illness Narrative Images from the original note were not included. 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 VERTEBRAL FRACTURE ASSESSMENT Not performed. TRABECULAR [...] FOR MORE INFORMATION ABOUT DIAGNOSIS AND TREATMENT: [facility] for Osteoporosis and Metabolic Bone Disease:? www.ccf.org/arthritis/osteo National Osteoporosis Foundation:? www.nof.org International Society of Clinical Densitometry www.iscd.org Analog Design Engineer: SUNSHINE Transcribe Date/Time: Nov 29 2024 2:05P Dictated by : ALEXA CRUZ MD This examination was interpreted and the report reviewed and electronically signed by: ALXEA CRUZ MD on Nov 29 2024 2:06PM [...] mg/spray (0.1 mL) nasal spray Use 1 Chitina in the nose as needed for seizures [...] units per day Plan The recommendation is [id number] mg of calcium daily between diet and [...] pt ACR handout Will send order to [facility] specialty pharmacy while awaiting lab results. Follow [...] which included preparing to see the patient, [id number] patient care, completing clinical documentation, obtaining and/or reviewing separately obtained history, performing a medically appropriate examination, counseling and educating the patient/family/caregiver, ordering medications, tests, or procedures, and communicating results to the patient/family/caregiver. Lloita Jain PA-C cc: PCP: Orville Mendoza [address] [place] [address] documented in this encounter [facility] 02-25-2025 Note HNO ID: [id number] Author: LOLITA JAIN PA-C Service: ? Author Type: Physician Law Librarian Type: Progress Notes Filed: 02/25/2025 16:03 Note Text: Osteoporosis and Metabolic Bone Disease CONSULTATION Referring Provider: Jayant Jimenez Date of Service: 02/25/2025 Gender: female Ethnicity: White Age: [age] year old Chief Complaint: New Patient Last Rheumatology visit: None at [facility] Katheryn Chino is a 79 year old [...] years, Gender: Female SCANNER INFORMATION: DXA Model: Jiberish - TestObject [id number] Date Scanned: 11/26/2024 11:08 AM CLINICAL HISTORY: DIAGNOSTIC 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 osteoporosis senior living (current) use of other agents affecting estrogen [...] had a previous bone density in the [facility] or the previous bone density was performed on a different DXA machine (new, updated model or different location) within the [facility]. VERTEBRAL FRACTURE ASSESSMENT Not performed. TRABECULAR [...] should not replace (more content not included)... [facility] 01-16-2025 Telephone encounter Note The following approved [...] was identified. 01/16/2025 by Mayda Howard PA-C [facility] 01-16-2025 Miscellaneous Notes The following approved medication [...] identified. 01/16/2025 by Mayda Howard PA-C 01/15/2025 MARY ANN Jimenez PLAN: Continue Depakote 500 mg TID [...] Medication Concern Person Calling Katia Nurse from long-term Name of medication Lacosamide Concern with medication They have Katheryn taking 100MG in the morning and 50 mg at night. Per yesterdays appointment it states 150mg at time time. What one should they do ? Patient of Dr. Jimenez documented in this encounter [facility] 01-16-2025 Telephone encounter Note 01/15/[address] [...] to be sent in. Sandra Casey RN [facility] 01-16-2025 Telephone encounter Note Medication Concern Person Calling Katia Nurse from long-term Name of medication Lacosamide Concern with medication They have Katheryn taking 100MG in the morning and 50 mg at night. Per yesterdays appointment it states 150mg at time time. What one should they do ? Patient of Dr. Jimenez [facility] 01-15-2025 Note HNO ID: [id number] Author: JAYANT JIMENEZ MD Service: ? Author Type: Physician Type: Progress Notes Filed: 01/15/2025 08:54 Note Text: [facility] Patient Name: Katheryn Chino Date of : 1945 ESTABLISHED EPILEPSY CLINIC NOTE 01/15/2025 8:00 AM Reason for Visit: Follow Up and Epilepsy Clinical Summary: Ms. Chino is a 79 year old female seen in [facility]. At today's visit, the patient [...] with AEDs . She moved to a [place] and she has more suervison with AEDs now. 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 She had good seizure control for a few years until covid. Hospitaltization in Aug 2024 for a prolonged GTCS at the facility ( brother reports it lasted ~ 25 mins). Admitted to [facility] where Dilantin and Depakote levels were low. [...] nasal spray (Taking As Needed) Use 1 Chitina in the nose as needed for seizures [...] 2 SCORE - (more content not included)... [facility] 01-15-2025 History of Present illness Narrative [facility] Patient Name: Katheryn Chino Date of : 1945 ESTABLISHED EPILEPSY CLINIC NOTE 01/15/2025 8:00 AM Reason for Visit: Follow Up and Epilepsy Clinical Summary: Ms. Chino is a 79 year old female seen in [facility]. At today's visit, the patient [...] with AEDs . She moved to a [place] and she has more suervison with AEDs now. 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 She had good seizure control for a few years until covid. Hospitaltization in Aug 2024 for a prolonged GTCS at the facility ( brother reports it lasted ~ 25 mins). Admitted to [facility] where Dilantin and Depakote levels were low. 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 -Vocation: -Education: -Cigarette, [...] impaired coordination greater on the right on [id number] testing Postural and action tremor in both [...] Seizure precautions - No driving in the [facility] until seizure free for 6 months. [...] which included: preparing to see the patient [id number] patient care completing clinical documentation obtaining and/or reviewing separately obtained history performing a medically appropriate examination counseling and educating the patient/family/caregiver ordering medications, tests, or procedures Jayant Jimenez MD cc: Primary Care Physician: Orville Mendoza, [address] [place] [address] Referring: Patient: Ms. Katheryn Chino [id number] [id number] documented in this encounter [facility] 01-15-2025 Instructions Jayant Jimenez MD - 01/15/2025 [...] Seizure precautions - No driving in the [facility] until seizure free for 6 months. [...] factor. Jayant Jimenez MD Associate Staff, Epilepsy [facility] January 15, 2025 Office phone: [phone] documented in this encounter [facility] 12-24-2024 Telephone encounter Note The following approved medication requests have been transmitted electronically. Requested Prescriptions Signed Prescriptions Disp Refills diazePAM (VALTOCO) 10 mg/spray (0.1 mL) nasal spray 2 Each 1 Sig: Use 1 Chitina in the nose as needed for seizures lasting longer than 3 minutes. May repeat dose once after 4 hours based on response and tolerability for a maximum of 2 doses per 24-hour period. Authorizing Provider: ARTIS HAMILTON APRN.CNP [facility] 12-24-2024 Miscellaneous Notes The following approved medication requests have been transmitted electronically. Requested Prescriptions Signed Prescriptions Disp Refills diazePAM (VALTOCO) 10 mg/spray (0.1 mL) nasal spray 2 Each 1 Sig: Use 1 Chitina in the nose as needed for seizures [...] Medication Concern Person Calling Rosita Cornejo, from [facility], ask for Pat's nurse Name of medication Nayzilam Concern with medication Nurse states the medication did not work the last time the patient had a seizure. Wants to know if another rescue medication can be prescribed instead. Patient of Dr. Jimenez documented in this encounter [facility] 12-24-2024 Telephone encounter Note We can trial Valtoco KLP ODT takes much longer to work [facility] 12-24-2024 Telephone encounter Note See 12/23/24 phone encounter. Silvia Rogers RN [facility] 12-24-2024 Miscellaneous Notes See 12/23/24 phone encounter. Silvia Rogers RN Level WNL If she has not had further seizures since reaching 100/150 of LCM can continue dose unchanged, any seizures would increase to 150/150 Artis Hamilton APRN.DWAYNE Images from the original note were not included. Current LCM dose 100/150 Forwarded to [facility] [address] [place] for review. Silvia Rogers RN OUTSIDE LAB REPORT FACILITY NAME [facility] PHONE/FAX COLLECTION DATE AND TIME: 12/15/24 540 Uploaded to [employer] documented in this encounter [facility] 12-24-2024 Telephone encounter Note Spoke with nurse Becker at [facility]. See 12/23/24 encounter. Silvia Rogers RN [facility] 12-24-2024 Miscellaneous Notes Spoke with nurse Rosita at [facility]. See 12/23/24 encounter. Silvia Rogers RN ORDERS Person requesting order: [facility] Phone number: [phone] Order being requested: Facility: [facility] Patient of Dr. Jimenez Forwarded to Nurse documented in this encounter [facility] 12-24-2024 Telephone encounter Note Spoke with nurse [...] MARIO 2 for review. Silvia Rogers RN [facility] 12-24-2024 Telephone encounter Note ORDERS Person requesting order: [facility] Phone number: [phone] Order being requested: Facility: [facility] Patient of Dr. Jimenez Forwarded to Nurse [facility] 12-23-2024 Telephone encounter Note Medication Concern Person Calling Rosita Cornejo, from [facility], ask for Pat's nurse Name of medication Nayzilam Concern with medication Nurse states the medication did not work the last time the patient had a seizure. Wants to know if another rescue medication can be prescribed instead. Patient of Dr. Jimenez [facility] 12-19-2024 Telephone encounter Note Level WNL If she has not had further seizures since reaching 100/150 of LCM can continue dose unchanged, any seizures would increase to 150/150 Artis Hamilton APRN.WELDING MACHINE SETTER [facility] 12-19-2024 Telephone encounter Note Images from the original note were not included. Current LCM dose 100/150 Forwarded to MARIO 2 pool for review. Silvia Rogers RN [facility] 12-19-2024 Telephone encounter Note OUTSIDE LAB REPORT FACILITY NAME [facility] PHONE/FAX COLLECTION DATE AND TIME: 12/15/24 540 Uploaded to [facility] 12-08-2024 Plan of care note [...] Interventions Goal: Assess Nutritional Intake Outcome: Completed [facility] 12-08-2024 Plan of care note [...] Interventions Goal: Assess Nutritional Intake Outcome: Completed [facility] 12-08-2024 Miscellaneous Notes Problem: Knowledge [...] med list transmitted to SNF Return - [facility] via Careport per TCC request. Electronically signed by [facility] Conner Mccain Transport requested in Roundtrip. Awaiting time confirmation. Confirmed pickup time of 3:00 by transport company [employer] at phone number . Location of facility drop off is [facility]. Facility notified via [employer], Martine Glasgow notified on secure chat. Pt is stable for DC to return to [facility]. [facility] tasked to arrange transport and to send DC notes/MAR to SNF. Transport arranged for 3:00 today. Pt's brother called, Danny [phone], updates given. Problem: Knowledge Deficit Goal: Patient/family/caregiver [...] treatment plan, medications, and discharge instructions 12/06/2024 0515 by Maria Victoria Zapata RN Outcome: Progressing 12/06/2024 0018 by Maria Victoria Zapata RN Outcome: Progressing Problem: Potential for Compromised Skin Integrity Goal: Skin Integrity is Maintained or Improved 12/06/2024 0515 by Maria Victoria Zapata RN Outcome: Progressing 12/06/2024 0018 by Maria Victoria Zapata RN Outcome: Progressing Goal: Nutritional status is improving 12/06/2024 0515 by Maria Victoria Zapata RN Outcome: Progressing 12/06/2024 0018 by Maria Victoria Zapata RN Outcome: Progressing Problem: Urinary Incontinence Goal: Perineal skin integrity is maintained or improved 12/06/2024 0515 by Maria Victoria Zapata RN Outcome: Progressing [...] or improved Outcome: Progressing Pt adm from [facility] SNF/LTC, with Sepsis 2nd to UTI. Plan is to return. Facility will adm pt back skilled under Medicare. Called pt's brother Danny [phone] was called and updated. CM to follow. [...] 12-04-24 during interdisciplinary rounds. Pt admitted from [facility] due to seizures. Pt has a history of seizure disorder. No needs anticipated but SW available as needs arise. documented in this encounter [facility] 12-08-2024 Note Formatting of this n ote might be different from the original. MAR & Discharge med list transmitted to SNF Return - [facility] via Careport per TCC request. [facility] 12-08-2024 Note Formatting of this n ote might be different from the original. MAR & Discharge med list transmitted to SNF Return - [facility]. [facility] 12-08-2024 Note Formatting of this n ote might be different from the original. Transport requested in Roundtrip. Awaiting time confirmation. Confirmed pickup time of 3:00 by transport company [employer] at phone number . Location of facility drop off is [facility]. Facility notified via Martine Arriaza notified on secure chat. [facility] 12-08-2024 Note Formatting of this n ote might be different from the original. Transport requested in Roundtrip. Awaiting time confirmation. Confirmed pickup time of 3:00 by transport company [employer] at phone number . Location of facility drop off is [facility]. Facility notified via Martine Arriaza notified on secure chat. [facility] 12-08-2024 Note Formatting of this n ote might be different from the original. Pt is stable for DC to return to [facility] SNF. [facility] tasked to arrange transport and to send DC notes/MAR to SNF. Transport arranged for 3:00 today. Pt's brother called, Danny [phone], updates given. [employer] 12-08-2024 Note Formatting of this n ote might be different from the original. Pt is stable for DC to return to [facility]. [employer] tasked to arrange transport and to send DC notes/MAR to SNF. Transport arranged for 3:00 today. Pt's brother called, Danny [phone], updates given. [facility] [employer] 12-08-2024 Note Hospitalist Discharg e Summary Katheryn Chino : 1945 Admit date: 12/03/2024 Discharge date: 12/08/2024 Admitting Physician: Fazal Garza MD Primary Care Physician: Orville Mendoza DO Visit Status: inpt Code Status: Full Code BRIEF HOSPITAL COURSE: Katheryn is a 79 y.o. Presenting from [place] for breakthrough seizure, Was found to meet [...] ulcer disease 01/27/2020 Seizure disorder (CMS/HCC) 01/27/2020 Hospital Course: See discharge diagnoses list [...] Rate (L/min): 2 L/min LABS: Recent Labs 12/06/2445312/07/24 0519 12/08/24 0358 NA 141 142 140 K 3.7 3.9 3.9 CL 110* 110* 108* CO2 24 25 26 BUN 12 12 10 CREATININE 0.64 0.64 [...] 10 MEQ ER (more content not included)... [facility] 12-08-2024 Hospital course Narrative Images from the original note were not included. Hospitalist Discharge Summary Katheryn Chino : 1945 Admit date: 12/03/2024 Discharge date: 12/08/2024 Admitting Physician: Fazal Garza MD Primary Care Physician: Orville Mendoza DO Visit Status: inpt Code Status: Full Code BRIEF HOSPITAL COURSE: Katheryn is a 79 y.o. Presenting from [place] for breakthrough seizure, Was found to meet [...] 01/27/2020 Peptic ulcer disease 01/27/2020 Seizure disorder ([facility] 01/27/2020 Hospital Course: See discharge diagnoses list [...] 3.9 3.9 CL 110* 110* 108* CO2 26 BUN 12 12 10 CREATININE 0.64 0.64 [...] Complexity: follow up within 7-14 calendar days (07804) [x] Severe Complexity: follow up within 7 calendar days (30660) Follow up Testing, Pending results or Referrals [...] Denise Hair DO Division of Hospitalist Medicine [facility] 12/08/2024, 11:02 AM documented in this encounter [facility] 12-08-2024 Hospital Discharge instructions Martine [...] Emergency Contact: Danny Chino Mobile Relation: Brother [employer] 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 Address: [address] [place] [address] Fax: Dialysis Facility (if applicable) Name: [facility] Address: Dialysis Schedule: Phone: Fax: Rn Production/Anesthesia Associate signature: ICIAN SECTION Name: Katheryn Chino Prognosis: good Condition at Discharge: stable Rehab Potential (if transferring to Rehab): good Recommended Labs or Other Treatments After Discharge: bmp, cbc 1 week The individual is being admitted to a nursing facility directly from an [facility] or a unit of a [facility] that is not operated by or [...] the diagnosis listed and that she requires alf facility for less than 30 days. Update Admission H&P: No change in H&P PHYSICIAN SIGNATURE: documented in this encounter [facility] 12-08-2024 Plan of care note [...] Interventions Goal: Assess Nutritional Intake Outcome: Progressing [facility] 12-07-2024 Note Hospitalist Progress Note 12/07/2024 Subjective: Admit Date: 12/03/2024 PCP: Orville Mendoza, DO Room#: N3-358/N3-358 A BRIEF HOSPITAL COURSE: Katheryn is a 79 y.o. Presenting from [place] for breakthrough seizure, Was found to meet [...] (CMS/HCC) 01/27/2020 LABS: CBC: Recent Labs 12/05/244 12/06/244 12/07/24 0519 WBC 6.2 5.3 6.1 RBC 3.37* 3.66* 3.70* HGB 9.6* 10.5* 10.4* HCT 30.4* 33.0* 32.1* MCV 90.2 90.2 86.8 RDW 13.3 13.0 13.2 PLT 148 158 169 BMP: Recent Labs 12/05/244 12/06/244 12/07/24 0519 NA 141 141 142 K [...] enoxaparin and enco (more content not included)... [facility] 12-07-2024 History of Present illness Narrative Hospitalist Progress Note 12/07/2024 Subjective: Admit Date: 12/03/2024 PCP: Orville Mendoza, Room#: N3-359/N3-544 A BRIEF HOSPITAL COURSE: Katheryn is a 79 y.o. Presenting from [place] for breakthrough seizure, Was found to meet [...] 01/27/2020 Peptic ulcer disease 01/27/2020 Seizure disorder ([facility]) 01/27/2020 LABS: CBC: Recent Labs 12/05/244 12/06/24 0454 12/07/24 0519 WBC 6.2 5.3 6.1 RBC 3.37* 3.66* 3.70* HGB 9.6* 10.5* 10.4* HCT 30.4* 33.0* 32.1* MCV 90.2 90.2 86.8 RDW 13.3 13.0 13.2 PLT 148 158 169 BMP: Recent Labs 12/05/24 0444 12/06/24 0454 12/07/24 0519 NA 141 141 142 K 3.8 3.7 3.9 CL 110* 110* 110* CO2 25 BUN 13 12 12 CREATININE 0.68 [...] Emergency Contact: Danny Chino Mobile Relation: Brother [employer] Worker needed? No Denise Hair DO Division of Hospitalist Medicine [facility] Hospitalist Progress Note 12/06/2024 Subjective: Admit Date: 12/03/2024 PCP: Orville Mendoza, DO Room#: N3-358/N3-763 A BRIEF HOSPITAL COURSE: Katheryn is a 79 y.o. Presenting from [place] for breakthrough seizure, Was found to meet [...] Extended Emergency Contact Information Primary Emergency Contact: ClaritaleDanny Mobile Relation: Brother [employer] Veget[employer] Factory Worker needed? No Denise Hair DO Division of Hospitalist Medicine Acute care [facility] Nutrition Assessment Type and Reason for Visit: [...] (appropriate for age) Fluid Accumulation: Mild Extremities Hourly Manager Strength: Not Performed Nutrition Assessment: 79 y.o. female presented from [place] for breakthrough seizure, Was found to meet [...] On: Kcal/kg Weight Used for Energy Requirements: [place] Weight for Energy Calculation (kg): 52 kg Total Energy Requirements (kcals/day): 5693-7509 (25-30) Weight Used for Protein Requirements: [place] Weight in Kg Used for Protein Requirements: 52 kg Estimated Total Protein (g/day): 52-62 (1.0-1.2) Estimated Daily Total Fluid (ml/day): per MD Nutrition Related Findings: Lives with: Other (Comment) ([facility] Home), Orientation Level: Oriented X4, Cognition: Follows [...] lb) (09/24/24 per review of OP notes) [place] Body Weight (lbs) (Calculated): 115 lbs [place] Body Weight (Kg) (Calculated): 52 kg Wt [...] determine Jacki Franco MS RD LD Contact: [employer] or *[id number] Nutrition rescreen completed. Patient referred to the Dietitian due to wound consult for pressure injury. [facility] Hospitalist Progress Note 12/05/2024 Subjective: Admit Date: 12/03/2024 PCP: Orville Mendoza DO Room#: N3-351/N3-351 A BRIEF HOSPITAL COURSE: Katheryn is a 79 y.o. Presenting from [place] for breakthrough seizure, Was found to meet [...] disorder (CMS/HCC) 01/27/2020 LABS: CBC: Recent Labs 12/03/24193912/04/24 0537 [...] - facility - Pending the following - Total time spent (which include face to face and non face to face encounters) : 40 minutes Extended Emergency Contact Information Primary Emergency Contact: Danny Chino Mobile Relation: Brother [employer] Worker needed? No Denise Hair DO Division of Hospitalist Medicine Acute [facility] General Neurology Follow-up Date of Service: [...] childhood) and cerebellar atrophy who presented to [facility] on 12/03 following witnessed seizure at [...] precautions - Already established with neurology through [facility], so can follow-up with them as outpatient [...] known history of generalized epilepsy-EEG unlikely to change control analyst at this time -Some confusion about her [...] Denise Hair D.O. Division of Hospitalist Medicine [facility] Images from the original note were not included. OCCUPATIONAL THERAPY [facility] Initial Evaluation Name/MRN: Katheryn Chino ([id number]) Evaluation Date: 12/04/2024 Date of : 1945 [...] Noted Sepsis due to urinary tract infection ([facility]) 12/03/2024 Obesity, Class I, BMI 30-34.9 08/18/2024 Breakthrough seizure (CMS/HCC) ([facility]) 08/17/2024 Dysarthria 08/07/2018 Ataxia 08/07/2018 Depression 10/26/2020 Cerebellar degeneration (CMS/HCC) ([facility]) 10/26/2020 Other specified hypothyroidism 01/27/2020 Seizure disorder (CMS/HCC) ([facility]) 01/27/2020 Peptic ulcer disease 01/27/2020 Dependent edema [...] AxOx self and hospital Social/Functional History From [facility] and has been there for 11.5 years. [...] of Care supervision is transferred to a [facility] Occupational Therapist. Goals and/or treatment plan was established in collaboration with patient/family/other representatives. Mary Morataya OTR/L Images from the original note were not included. PHYSICAL THERAPY [facility] Initial Evaluation Name/MRN: Katheryn Chino ([id number]) Evaluation Date: 12/04/2024 Date of : 1945 [...] and [facility] Plan is to return to [facility]. Admitting Diagnosis: Sepsis due to UTI, Seizure [...] 01/27/2020 Peptic ulcer disease 01/27/2020 Seizure disorder ([facility]) 01/27/2020 Past Surgical History: No past surgical history on file. Admission Diagnosis: Patient Active Problem List Diagnosis Date Noted Sepsis due to urinary tract infection ([facility]) 12/03/2024 Obesity, Class I, BMI 30-34.9 08/18/2024 Breakthrough seizure ([facility]) ([facility]) 08/17/2024 Dysarthria 08/07/2018 Ataxia 08/07/2018 Depression 10/26/2020 Cerebellar degeneration ([facility]) ([facility]) 10/26/2020 Other specified hypothyroidism 01/27/2020 Seizure disorder ([facility]) ([facility]) 01/27/2020 Peptic ulcer disease 01/27/2020 Dependent edema [...] issues noted Hearing: normal Social/Functional History From [facility] and has been there for 11.5 years. [...] self corrected. Standing balance poor+ (2/10 Modified [place]) Bed Mobility: Supine to sit: Min Assist [...] of Care supervision is transferred to a [facility] Physical Therapist. Goals and/or treatment plan was established in collaboration with patient/family/other representatives. documented in this encounter [facility] 12-07-2024 Plan of care note [...] Interventions Goal: Assess Nutritional Intake Outcome: Progressing [facility] 12-06-2024 Note Hospitalist Progress Note 12/06/2024 Subjective: Admit Date: 12/03/2024 PCP: Orville Mendoza DO Room#: N3-091/N3-915 A BRIEF HOSPITAL COURSE: Katheryn is a 79 y.o. Presenting from [place] for breakthrough seizure, Was found to meet [...] 01/27/2020 Peptic ulcer disease 01/27/2020 Seizure disorder (CMS/[facility]) 01/27/2020 LABS: CBC: Recent Labs 12/04/24 0537 [...] posing a threat (more content not included)... [facility] 12-06-2024 Note Nutrition Assessment Type and Reason [...] (appropriate for age) Fluid Accumulation: Mild Extremities Hourly Manager Strength: Not Performed Nutrition Assessment: 79 y.o. female presented from [place] for breakthrough seizure, Was found to meet [...] On: Kcal/kg Weight Used for Energy Requirements: [place] Weight for Energy Calculation (kg): 52 kg Total Energy Requirements (kcals/day): 8299-0028 (25-30) Weight Used for Protein Requirements: [place] Weight in Kg Used for Protein Requirements: 52 kg Estimated Total Protein (g/day): 52-62 (1.0-1.2) Estimated Daily Total Fluid (ml/day): per MD Nutrition Related Findings: Lives with: Other (Comment) ([facility]), Orientation Level: Oriented X4, Cognition: Follows [...] lb) (09/24/24 per review of OP notes) [place] Body Weight (lbs) (Calculated): 115 lbs [place] Body Weight (Kg) (Calculated): 52 kg Wt [...] greater, by n (more content not included)... [facility] 12-06-2024 Plan of care note Problem: Knowledge Deficit Goal: Patient/family/caregiver demonstrates understanding of disease process, treatment plan, medications, and discharge instructions 12/06/2024 0515 by Maria Victoria Zapata RN Outcome: Progressing 12/06/2024 0018 by Maria Victoria Zapata RN Outcome: Progressing Problem: Potential for Compromised Skin Integrity Goal: Skin Integrity is Maintained or Improved 12/06/2024 0515 by Maria Victoria Zapata RN Outcome: Progressing 12/06/2024 0018 by Maria Victoria Zapata RN Outcome: Progressing Goal: Nutritional status is improving 12/06/2024 0515 by Maria Victoria Zapata RN Outcome: Progressing 12/06/20248 by Maria Victoria Zapata RN Outcome: Progressing Problem: Urinary Incontinence Goal: Perineal skin integrity is maintained or improved 12/06/2024 0515 by Maria Victoria Zapata RN Outcome: Progressing 12/06/2024 0018 by Maria Victoria Zapata RN Outcome: Progressing [facility] 12-06-2024 Plan of care note Problem: Knowledge Deficit Goal: Patient/family/caregiver demonstrates understanding of disease process, treatment plan, medications, and discharge instructions Outcome: Progressing Problem: Potential for Compromised Skin Integrity Goal: Skin Integrity is Maintained or Improved Outcome: Progressing Goal: Nutritional status is improving Outcome: Progressing Problem: Urinary Incontinence Goal: Perineal skin integrity is maintained or improved Outcome: Progressing [facility] 12-05-2024 Note Formatting of this n ote might be different from the original. Pt adm from [facility] SNF/LTC, with Sepsis 2nd to UTI. Plan is to return. Facility will adm pt back skilled under Medicare. Called pt's brother Danny [phone] was called and updated. CM to follow. [facility] 12-05-2024 Note Formatting of this n ote might be different from the original. Pt adm from [facility] SNF/LTC, with Sepsis 2nd to UTI. Plan is to return. Facility will adm pt back skilled under Medicare. Called pt's brothvikram Delgado, was called and updated. CM to follow. [facility] 12-05-2024 Telephone encounter Note Updated LCM 150mg BID rx faxed via [facility] to [facility]. Confirmation received. Silvia Rogers RN [facility] 12-05-2024 Miscellaneous Notes Updated LCM 150mg BID rx faxed via [employer]ax to [facility]. Confirmation received. Silvia Rogers RN The following approved medication requests have been transmitted electronically. Requested Prescriptions Signed Prescriptions Disp Refills lacosamide (VIMPAT) 150 mg tab 180 tablet 1 Sig: Take 1 tablet by mouth two times a day for 180 days. Authorizing Provider: ARTIS HAMILTON APRN.WELDING MACHINE SETTER Spoke with nurse Katia at [facility]. Informed her of recommendations to increase LCM to 150mg BID, with read back. Nurse requests rx to be faxed to the facility. [facility] PH: [phone] FAX : [phone] Silvia Rogers RN Called the patient's facility. Left message for the nurse to call back regarding recommendations. Silvia Rogers RN If no clear triggers will likely need to adjust doses. Would consider further increasing LCM to 150 mg BID Artis Hamilton APRN.DWAYNE Seizure Call - spoke with nurse Katia. [facility] PH: [phone] FAX : [phone] Last Visit: 09/24/24 Next Visit: 01/15/25 Date [...] Other: patient was taken to local ED, [facility]. The patient will be transferred to [...] from the hospital. Forwarded to MARIO 2 jeanine Rogers RN Received patients seizure monitoring sheet from [facility]. Uploaded to [employer] documented in this encounter [facility] 12-05-2024 Note Hospitalist Progress Note 12/05/2024 Subjective: Admit Date: 12/03/2024 PCP: Orville Mendoza DO Room#: N3-351/N3-351 A BRIEF HOSPITAL COURSE: Katheryn is a 79 y.o. Presenting from [place] for breakthrough seizure, Was found to meet [...] 01/27/2020 Peptic ulcer disease 01/27/2020 Seizure disorder ([facility]) 01/27/2020 LABS: CBC: Recent Labs 12/03/24193912/04/24 0537 [...] a threat t (more content not included)... [facility] 12-05-2024 Plan of care note Problem: Knowledge Deficit Goal: Patient/family/caregiver demonstrates understanding of disease process, treatment plan, medications, and discharge instructions Outcome: Progressing Problem: Potential for Compromised Skin Integrity Goal: Skin Integrity is Maintained or Improved Outcome: Progressing Goal: Nutritional status is improving Outcome: Progressing Problem: Urinary Incontinence Goal: Perineal skin integrity is maintained or improved Outcome: Progressing [facility] 12-04-2024 Telephone encounter Note The following approved medication requests have been transmitted electronically. Requested Prescriptions Signed Prescriptions Disp Refills lacosamide (VIMPAT) 150 mg tab 180 tablet 1 Sig: Take 1 tablet by mouth two times a day for 180 days. Authorizing Provider: ARTIS HAMILTON APRN.WELDING MACHINE SETTER [facility] 12-04-2024 Plan of care note Problem: Knowledge Deficit Goal: Patient/family/caregiver demonstrates understanding of disease process, treatment plan, medications, and discharge instructions Outcome: Progressing Problem: Potential for Compromised Skin Integrity Goal: Skin Integrity is Maintained or Improved Outcome: Progressing Goal: Nutritional status is improving Outcome: Progressing Problem: Urinary Incontinence Goal: Perineal skin integrity is maintained or improved Outcome: Progressing [facility] 12-04-2024 Telephone encounter Note Spoke with nurse Katia at [facility]. Informed her of recommendations to increase LCM to 150mg BID, with read back. Nurse requests rx to be faxed to the facility. [facility] PH: [phone] FAX : [phone] Silvia Rogers RN [facility] 12-04-2024 Telephone encounter Note Called the patient's facility. Left message for the nurse to call back regarding recommendations. Silvia Rogers RN [facility] 12-04-2024 Note Formatting of this n ote might be different from the original. Pt discussed 12-04-24 during interdisciplinary rounds. Pt admitted from [facility] due to seizures. Pt has a history of seizure disorder. No needs anticipated but SW available as needs arise. [facility] 12-04-2024 Note Formatting of this n ote might be different from the original. Pt discussed 12-04-24 during interdisciplinary rounds. Pt admitted from [facility] due to seizures. Pt has a history of seizure disorder. No needs anticipated but SW available as needs arise. [facility] 12-04-2024 Note OCCUPATIONAL THERAPY [facility] Initial Evaluation Name/MRN: Katheryn Chino ([id number]) Evaluation Date: 12/04/2024 Date of : 1945 Admission Date: 12/03/2024 6:35 PM Age: 79 y.o. Room/Bed: N3351/[facility] A Discharge Recommendation: Home with Home health [...] Noted Sepsis due to urinary tract infection ([facility]) 12/03/2024 Obesity, Class I, BMI 30-34.9 08/18/2024 Breakthrough seizure ([facility]) ([facility]) 08/17/2024 Dysarthria 08/07/2018 Ataxia 08/07/2018 Depression 10/26/2020 Cerebellar degeneration ([facility]) ([facility]) 10/26/2020 Other specified hypothyroidism 01/27/2020 Seizure disorder ([facility]) ([facility]) 01/27/2020 Peptic ulcer disease 01/27/2020 Dependent edema [...] AxOx self and hospital Social/Functional History From [facility] and has been there for 11.5 years. [...] Daily Activity Raw Score: 18 ADL Inpatient [facility] G-Code Modifier: CK Plan Pt would benefit from skilled acute OT services to address Strengthening, ROM, Gait Training, Balance Training, Self-Care/ADL Training, Functional Mobility Training, Endurance Training, Safety Education and Training, Pain Management, Equipment Evaluation/Education, Cognitive Reorientation, Patient/Caregiver Training, Cognitive/Perceptual Training, and Positioning. Frequency: 2x/week for 4 weeks Barriers: Long standing deficits Safety/Education Safety Safety Devic (more content not included)... [facility] 12-04-2024 Nurse Note Wound Care consulted for Pressure Injury Prevention. Pt's Melo score= 16 on 12/04 Pt's pressure points assessed. Pt sitting in chair. OT present in room and assisted pt with standing for assessment of buttocks/coccyx. Pt's Heels, Buttocks/coccyx, Back, Elbows, Occiput and ears all intact. Prevention Measures in place, including: [place] sheet with pillows, Foam heel protectors (obtained [...] or concerns. Aliza Goins RN, BSN, CWCN [facility] 12-04-2024 Nurse Note Wound Care consulted for Pressure Injury Prevention. Pt's Melo score= 16 on 12/04 Pt's pressure points assessed. Pt sitting in chair. OT present in room and assisted pt with standing for assessment of buttocks/coccyx. Pt's Heels, Buttocks/coccyx, Back, Elbows, Occiput and ears all intact. Prevention Measures in place, including: [place] sheet with pillows, Foam heel protectors (obtained [...] RN, BSN, CWCN documented in this encounter [facility] 12-04-2024 Note PHYSICAL THERAPY [facility] Initial Evaluation Name/MRN: Katheryn Chino ([id number]) Evaluation Date: 12/04/2024 Date of : 1945 [...] and mod of 1 to transfer to recliner. Plan is to return to [facility]. Admitting Diagnosis: Sepsis due to UTI, Seizure [...] 01/27/2020 Peptic ulcer disease 01/27/2020 Seizure disorder ([facility]) 01/27/2020 Past Surgical History: No past surgical history on file. Admission Diagnosis: Patient Active Problem List Diagnosis Date Noted Sepsis due to urinary tract infection ([facility]) 12/03/2024 Obesity, Class I, BMI 30-34.9 08/18/2024 Breakthrough seizure ([facility]) ([facility]) 08/17/2024 Dysarthria 08/07/2018 Ataxia 08/07/2018 Depression 10/26/2020 Cerebellar degeneration ([facility]) ([facility]) 10/26/2020 Other specified hypothyroidism 01/27/2020 Seizure disorder ([facility]) ([facility]) 01/27/2020 Peptic ulcer disease 01/27/2020 Dependent edema [...] issues noted Hearing: normal Social/Functional History From [facility] and has been there for 11.5 years. [...] self corrected. Standing balance poor+ (11/24 Modified [place]) Bed Mobility: Supine to sit: Min Assist [...] Decreased endurance, Long (more content not included)... [facility] 12-04-2024 Consult note Associated Order (s): IP CONSULT TO NEUROLOGY General Neurology Consult Patient: Katheryn Chino Date of : 1945 Acct: [id number] PCP: rOville Mendoza DO Date of Admission: 12/03/2024 Date of Service: Pt seen/examined on 12/04/24 Chief Complaint: Breakthrough seizure History Of Present Illness: 79 y.o. female with past medical history significant for idiopathic generalized epilepsy (since childhood), cerebellar atrophy (on MRI in 2018, thought to be 2/2 chronic Dilantin use), wheelchair dependence, chronic dysarthria, hypothyroidism who presented from [facility] to [facility] 12/03 with complaint of breakthrough seizure. Patient follows with Dr. Jimenez from [facility] and has been having generalized tonic-clonic seizures and absence seizures since age [age]. Current AED regimen is supposed to be VPA 250mg TID, LCM 100mg BID, and ethosuximide 250mg BID. The patient is not able to provide any history from yesterday and denies any complaints at present. Per history obtained from RN at [facility] who witnessed event, it occurred yesterday morning [...] antibiotics. Social History: The patient currently lives [facility] Occupation None Drives: No TOBACCO: reports that [...] and change in bowel habits (RN from [facility] does report episode of emesis two days [...] at endpoints Left: Mild ataxia at endpoints Oevy-Ounx-Cbfl Right: normal Left: normal Rapid Alternating Movements Right: reduced speed Left: reduced speed Radiology: (personally reviewed) No head imaging done ASSESSMENT/PLAN: Summary: Patient is a 79 year old female with pertinent medical history of idiopathic epilepsy (since childhood) and cerebellar atrophy who presented to [facility] on 12/03 following witnessed seizure at [...] have been done at OSH or at [facility]. - Infectious work-up and treatment per primary team. Suspect seizure occurred either due to lowered seizure threshold 2/2 infection vs medication non-adherence. - Check LCM level and free valproic acid level - Recommend the following AED regimen: - ethosuximide 250mg BID (outpatient dose) - VPA 500mg BID (discrepancy between last outpatient neurology note and MAR from [facility], so will average the two) - LCM continue 100mg qAM and increase nightly dose to 150mg - Will discontinue phenytoin as patient had stopped this medication as outpatient - Will need repeat AED levels in one week. Already established with neurology through [facility], so can follow-up with them as outpatient. - Low threshold for LP if other infectious work-up unrevealing or patient clinically worsens. Cosigned by Susan Reyes MD at 12/04/2024 3:20 PM EST Associated attestation - Suasn Reyes MD - 12/04/2024 3:20 PM EST [...] changes to ADM regimen. Patient follows with [facility] neurology and has known intractable epilepsy, now [...] tremors sensation: intact to light touch cerebellar: [id number] slow but intact gait: deferred secondary to [...] known history of generalized epilepsy-EEG unlikely to change control analyst at this time -Some confusion about her [...] or meningismus -Will continue to monitor for PAINTINGS RESTORER infectious symptoms I spent total time 80 minutes reviewing previous notes, test results, and face to face with the patient discussing the diagnosis and importance of compliance with the treatment plan as well as documenting on the day of the visit. [facility] 12-04-2024 Consult note Associated Order (s): IP CONSULT TO NEUROLOGY General Neurology Consult Patient: Katheryn Chino Date of : 1945 Acct: [id number] PCP: Orville Mendoza DO Date of Admission: 12/03/2024 Date of Service: Pt seen/examined on 12/04/24 Chief Complaint: Breakthrough seizure History Of Present Illness: 79 y.o. female with past medical history significant for idiopathic generalized epilepsy (since childhood), cerebellar atrophy (on MRI in 2018, thought to be 2/2 chronic Dilantin use), wheelchair dependence, chronic dysarthria, hypothyroidism who presented from [facility] to [facility] 12/03 with complaint of breakthrough seizure. Patient follows with Dr. Jimenez from [facility] and has been having generalized tonic-clonic seizures and absence seizures since age [age]. Current AED regimen is supposed to be VPA 250mg TID, LCM 100mg BID, and ethosuximide 250mg BID. The patient is not able to provide any history from yesterday and denies any complaints at present. Per history obtained from RN at [facility] who witnessed event, it occurred yesterday morning [...] antibiotics. Social History: The patient currently lives [facility] Occupation None Drives: No TOBACCO: reports that [...] and change in bowel habits (RN from [facility] does report episode of emesis two days [...] at endpoints Left: Mild ataxia at endpoints Tfnf-Kzjs-Nago Right: normal Left: normal Rapid Alternating Movements Right: reduced speed Left: reduced speed Radiology: (personally reviewed) No head imaging done ASSESSMENT/PLAN: Summary: Patient is a 79 year old female with pertinent medical history of idiopathic epilepsy (since childhood) and cerebellar atrophy who presented to [facility] on 12/03 following witnessed seizure at [...] have been done at OSH or at [facility]. - Infectious work-up and treatment per primary team. Suspect seizure occurred either due to lowered seizure threshold 11/16 infection vs medication non-adherence. - Check LCM level and free valproic acid level - Recommend the following AED regimen: - ethosuximide 250mg BID (outpatient dose) - VPA 500mg BID (discrepancy between last outpatient neurology note and MAR from [facility], so will average the two) - LCM continue 100mg qAM and increase nightly dose to 150mg - Will discontinue phenytoin as patient had stopped this medication as outpatient - Will need repeat AED levels in one week. Already established with neurology through [facility], so can follow-up with them as outpatient. [...] tremors sensation: intact to light touch cerebellar: uhyuzn-fp-cqdj slow but intact gait: deferred secondary to [...] known history of generalized epilepsy-EEG unlikely to change control analyst at this time -Some confusion about her [...] or meningismus -Will continue to monitor for PAINTINGS RESTORER infectious symptoms I spent total time 80 minutes reviewing previous notes, test results, and face to face with the patient discussing the diagnosis and importance of compliance with the treatment plan as well as documenting on the day of the visit. documented in this encounter [facility] 12-04-2024 History and physical note Attending History and Physical Admit Date: 12/03/2024 PCP: Orville Mendoza DO CHIEF COMPLAINT: Breakthrough seizure Reason for Admission: Sepsis criteria 2/2 UTI as suspected source History Obtained From: patient HISTORY OF PRESENT ILLNESS: Katheryn is a 79 y.o. female with past medical history below who presents with chief complaint listed above. Presenting from [place] for breakthrough seizure, Was found to meet [...] Insecurity: No Food Insecurity (08/18/2024) Received from [facility] Hunger Vital Sign Worried About Running Out of Food in the Last Year: Never true Ran Out of Food in the Last Year: Never true Transportation Needs: No Transportation Needs (08/18/2024) Received from [facility] PRAPARE - Transportation Lack of Transportation (Medical): No Lack of Transportation (Non-Medical): No Physical Activity: Not on file Stress: Not on file Social Connections: Not on file Intimate Partner Violence: Not on file Housing Stability: Low Risk (08/18/2024) Received from [facility] Housing Stability Vital Sign Unable to Pay [...] Emergency Contact: Danny Chino Mobile Relation: Brother [employer] Worker needed? No Fazal Garza MD Division of Hospital Medicine Inpatient Medical Services/[facility] 12-04-2024 Note Attending History an d Physical Admit Date: 12/03/2024 PCP: Orville Mendoza DO CHIEF COMPLAINT: Breakthrough seizure Reason for Admission: Sepsis criteria 2/2 UTI as suspected source History Obtained From: patient HISTORY OF PRESENT ILLNESS: Katheryn is a 79 y.o. female with past medical history below who presents with chief complaint listed above. Presenting from [place] for breakthrough seizure, Was found to meet [...] Insecurity: No Food Insecurity (08/18/2024) Received from [facility] Hunger Vital Sign Worried About Running Out of Food in the Last Year: Never true Ran Out of Food in the Last Year: Never true Transportation Needs: No Transportation Needs (08/18/2024) Received from [facility] PRAPARE - Transportation Lack of Transportation (Medical): No Lack of Transportation (Non-Medical): No Physical Activity: Not on file Stress: Not on file Social Connections: Not on file Intimate Partner Violence: Not on file Housing Stability: Low Risk (08/18/2024) Received from [facility] Housing Stability Vital Sign Unable to Pay [...] eval & mg (more content not included)... [facility] 12-04-2024 History and physical note Attending History and Physical Admit Date: 12/03/2024 PCP: Orville Mendoza DO CHIEF COMPLAINT: Breakthrough seizure Reason for Admission: Sepsis criteria 2/2 UTI as suspected source History Obtained From: patient HISTORY OF PRESENT ILLNESS: Katheryn is a 79 y.o. female with past medical history below who presents with chief complaint listed above. Presenting from [place] for breakthrough seizure, Was found to meet [...] Insecurity: No Food Insecurity (08/18/2024) Received from [facility] Hunger Vital Sign Worried About Running Out of Food in the Last Year: Never true Ran Out of Food in the Last Year: Never true Transportation Needs: No Transportation Needs (08/18/2024) Received from [facility] PRAPARE - Transportation Lack of Transportation (Medical): No Lack of Transportation (Non-Medical): No Physical Activity: Not on file Stress: Not on file Social Connections: Not on file Intimate Partner Violence: Not on file Housing Stability: Low Risk (08/18/2024) Received from [facility] Housing Stability Vital Sign Unable to Pay [...] Emergency Contact: Danny Chino Mobile Relation: Brother [employer] Worker needed? No Fazal Garza MD Division of Hospital Medicine Inpatient Medical Services/[facility] documented in this encounter [facility] 12-03-2024 Emergency department Note Emergency Department Encounter [facility] EMERGENCY DEPT Patient: Katheryn Chino : 1945 Date of Evaluation: 12/03/2024 ED Supervising Physician: Miriam Hennessy, DO I personally evaluated Katheryn Chino and [...] the emergency department as a transfer from [place] for breakthrough seizure. Patient reports she has [...] for clarification.) Miriam Hennessy DO Acute Care [facility] Miriam Hennessy DO 12/04/24 0003 EMERGENCY DEPARTMENT ENCOUNTER Pt Name: Katheryn Chino Birthdate 1945 Date of evaluation: 12/03/2024 ED Provider: Rancho Diamond PA-C CHIEF COMPLAINT Chief Complaint [facility] Pt from [facility] for 38 minute witnessed seizure this [...] the seizure. They did take her to [facility] where she was supposedly observed there [...] Insecurity: No Food Insecurity (08/18/2024) Received from [facility] Hunger Vital Sign Worried About Running Out of Food in the Last Year: Never true Ran Out of Food in the Last Year: Never true Transportation Needs: No Transportation Needs (08/18/2024) Received from [facility] PRAPARE - Transportation Lack of Transportation (Medical): No Lack of Transportation (Non-Medical): No Housing Stability: Low Risk (08/18/2024) Received from [facility] Housing Stability Vital Sign Unable to Pay for Housing in the Last Year: No Number of Times Moved in the Last Year: 0 Homeless in the Last Year: No SCREENINGS [place] Coma Scale Best Eye Response: Spontaneous Best Verbal Response: Confused Best Motor Response: Follows commands [place] Coma Scale Score: 14 PHYSICAL EXAM ED [...] XII are grossly intact. Normal finger-nose and egdq-pw-yanj. Speech is clear and appropriate. Normal level of consciousness. Gait and coordination are normal. 5/5 strength in all extremities. DIAGNOSTIC RESULTS Procedures/EKG: EKG was reviewed by myself. Physician EKG interpretation can be found in [facility] RADIOLOGY (Per Emergency Physician): CT of the [...] Culture. Procedure Abnormality Status --------- ------ Complete Urinalysis[[id number]] Abnormal Final result Please view results for these tests on the individual orders. All other labs were within normal range or not returned as of this dictation. EMERGENCY DEPARTMENT COURSE and DIFFERENTIAL DIAGNOSIS/MDM: Vitals: Vitals: 02/19/25 1839 12/03/24 1942 12/03/24202312/03/24 2210 BP: 121/60 100/52 117/66 Pulse: 98 93 88 Resp: 18 Temp: (!) 38.8 C (101.8 F) TempSrc: [...] Emergency Medicine Provider Rancho Diamond PA-C 12/03/24 3365 Cosigned by Miriam Hennessy DO at 12/04/2024 12:54 AM EST documented in this encounter [facility] 12-03-2024 Physician Emergency department Note Emergency Department Encounter [facility] EMERGENCY DEPT Patient: Katheryn Chino : [...] the emergency department as a transfer from [place] for breakthrough seizure. Patient reports she has [...] [employer] Miriam Hennessy DO 12/04/24 0003 [employer] Phone: 12-03-2024 Physician Emergency department Note EMERGENCY DEPARTMENT ENCOUNTER Pt Name: Katheryn Chino Birthdate 1945 Date of evaluation: 12/03/2024 ED Provider: Rancho Diamond PA-C CHIEF COMPLAINT Chief Complaint [facility] Pt from [facility] for 38 minute witnessed seizure this [...] the seizure. They did take her to [facility] where she was supposedly observed there [...] Insecurity: No Food Insecurity (08/18/2024) Received from [facility] Hunger Vital Sign Worried About Running Out of Food in the Last Year: Never true Ran Out of Food in the Last Year: Never true Transportation Needs: No Transportation Needs (08/18/2024) Received from [facility] PRAPARE - Transportation Lack of Transportation (Medical): No Lack of Transportation (Non-Medical): No Housing Stability: Low Risk (08/18/2024) Received from [facility] Housing Stability Vital Sign Unable to Pay for Housing in the Last Year: No Number of Times Moved in the Last Year: 0 Homeless in the Last Year: No SCREENINGS [place] Coma Scale Best Eye Response: Spontaneous Best Verbal Response: Confused Best Motor Response: Follows commands [place] Coma Scale Score: 14 PHYSICAL EXAM ED [...] XII are grossly intact. Normal finger-nose and vazy-fn-xktj. Speech is clear and appropriate. Normal level of consciousness. Gait and coordination are normal. 5/5 strength in all extremities. DIAGNOSTIC RESULTS Procedures/EKG: EKG was reviewed by myself. Physician EKG interpretation can be found in [facility] RADIOLOGY (Per Emergency Physician): CT of the [...] Culture. Procedure Abnormality Status --------- ------ Complete Urinalysis[[id number]] Abnormal Final result Please view results for these tests on the individual orders. All other labs were within normal range or not returned as of this dictation. EMERGENCY DEPARTMENT COURSE and DIFFERENTIAL DIAGNOSIS/MDM: Vitals: Vitals: 12/03/24 1839 12/03/24194112/03/24202312/03/240 BP: 121/60 100/52 117/66 Pulse: 98 93 [...] Emergency Medicine Provider Rancho Diamond PA-C 12/03/24 6946 Cosigned by Miriam Hennessy DO at 12/04/2024 12:54 AM EST [facility] 12-03-2024 Telephone encounter Note If no clear triggers will likely need to adjust doses. Would consider further increasing LCM to 150 mg BID Artis Hamilton APRN.WELDING MACHINE SETTER [facility] 12-03-2024 Telephone encounter Note Seizure Call - spoke with nurse Inman. [facility]: [phone] FAX : [phone] Last Visit: 09/24/24 Next Visit: 01/15/25 Date [...] Other: patient was taken to local ED, [facility]. The patient will be transferred to [...] to MARIO 2 pool Silvia Rogers RN [facility] 12-03-2024 Telephone encounter Note Received patients seizure monitoring sheet from [facility]. Uploaded to [employer] [facility] 12-02-2024 Telephone encounter Note Spoke with nurse Rosita from patient's facility. Informed her of message per Dr. Jimenez with read back. Informed her rheumatology consult was faxed along with DEXA scan report. Consult and DEXA report faxed via [employer] to: [facility] PH: [phone] FAX : [phone] Confirmation received. Silvia Rogers RN [facility] 12-02-2024 Miscellaneous Notes Spoke with nurse Rosita from patient's facility. Informed her of message per Dr. Jimenez with read back. Informed her rheumatology consult was faxed along with DEXA scan report. Consult and DEXA report faxed via [employer] to: [facility] PH: [phone] FAX : [phone] Confirmation received. Silvia Rogers RN Per Dr. Jimenez, This patient's bone scan showed osteoporosis. I placed a consult to Rheumatology to manage this. Can you please let the patient know. Thanks KMG ==== Silvia Rogers RN documented in this encounter [facility] 12-01-2024 Telephone encounter Note Per Dr. Jimenez, This patient's bone scan showed osteoporosis. I placed a consult to Rheumatology to manage this. Can you please let the patient know. Thanks KMG ==== Silvia Rogers RN [facility] 12-01-2024 Telephone encounter Note Provider referred patient to rheumatology. I placed into protal under ref# [id number] [facility] Work Phone: 12-01-2024 Miscellaneous Notes Provider referred patient to rheumatology. I placed into protal under ref# [id number] documented in this encounter [facility] 11-26-2024 History of Present illness Narrative Radiology [...] PATIENT PRESENTS WITH AN IMPLANTABLE OR ATTACHED TECHNICAL MANAGER: No RADIOLOGY DEPARTMENT: Bone Density PERIPHERAL IV DATA: Not applicable SIGNED BY: RT Nancy(Kimberley) November 26, 2024 11:04 AM documented in this encounter [facility] 11-26-2024 Note HNO ID: [id number] Author: KATIA HOWARD RT(R) Service: Radiology Author Type: Technologist Type: [...] PATIENT PRESENTS WITH AN IMPLANTABLE OR ATTACHED TECHNICAL MANAGER: No RADIOLOGY DEPARTMENT: Bone Density PERIPHERAL IV DATA: Not applicable SIGNED BY: RT Nancy(R) November 26, 2024 11:04 AM [facility] 11-11-2024 Telephone encounter Note The following [...] spray 2 Each 0 Sig: Use 1 Chitina in the nose as needed for seizures lasting longer than 3 minutes for up to 90 days. May repeat dose in alternate nostril after 10 minutes based on response and tolerability. Authorizing Provider: ARTIS HAMILTON APRN.WELDING MACHINE SETTER [facility] 11-11-2024 Miscellaneous Notes The following approved [...] spray 2 Each 0 Sig: Use 1 Chitina in the nose as needed for seizures lasting longer than 3 minutes for up to 90 days. May repeat dose in alternate nostril after 10 minutes based on response and tolerability. Authorizing Provider: ARTIS HAMILTON APRN.WELDING MACHINE SETTER Prescription request for alternate pharmacy. Prescriptions sent to incorrect pharamcy / Please re-send to [facility] for all 3 medications Prescription Refill: Requested by: Rosita @ [facility] Please [employer] Caller Contact Number: [phone] Pharmacy Name: [facility] [place], [place] Pharmacy Number: [phone] Generic/ brand: generic 30 or 90 day supply requested: 90 Last appointment: 09/24/2024 Next Appointment: none Patient of Dr. Erin Chino [id number] [facility] [id number] documented in this encounter [facility] 11-11-2024 Telephone encounter Note Prescription request for alternate pharmacy. Prescriptions sent to incorrect pharamcy / Please re-send to [facility] for all 3 medications Prescription Refill: Requested by: Rosita @ [facility] Please [employer] Caller Contact Number: [phone] Pharmacy Name: [place], [place] Pharmacy Number: [phone] Generic/ brand: generic 30 or 90 day supply requested: 90 Last appointment: 09/24/2024 Next Appointment: none Patient of Dr. Erin Chino [id number] [facility] [id number] [facility] 11-11-2024 Telephone encounter Note Noted. Spoke with nurse Gisella, recommendations provided per MARIO. Letter, copies of LCM, Nayzilam spray faxed to facility. See 11/10/24 phone encounter. Silvia Rogers RN [facility] 11-11-2024 Miscellaneous Notes Noted. Spoke with nurse Gisella, recommendations provided per MARIO. Letter, copies of LCM, Nayzilam spray faxed to facility. See 11/10/24 phone encounter. Silvia Rogers RN Received Seizure monitoring report from [facility]. Uploaded to [employer]. documented in this encounter [facility] 11-11-2024 Telephone encounter Note [facility] [employer]. [facility] 11-11-2024 Telephone encounter Note The following approved medication requests have been transmitted electronically. Requested Prescriptions Signed Prescriptions Disp Refills midazolam (NAYZILAM) 5 mg/spray (0.1 mL) nasal spray 2 Each 0 Sig: Use 1 Chitina in the nose as needed for seizures [...] 180 days. Authorizing Provider: ARTIS HAMILTON APRN.CNP [facility] 11-11-2024 Miscellaneous Notes The following approved medication requests have been transmitted electronically. Requested Prescriptions Signed Prescriptions Disp Refills midazolam (NAYZILAM) 5 mg/spray (0.1 mL) nasal spray 2 Each 0 Sig: Use 1 Chitina in the nose as needed for seizures [...] Authorizing Provider: ARTIS HAMILTON APRN.CNP Spoke with nurse, Gisella. Informed of recommendations, [...] 4: LCM 100/100, stop PHT Artis Hamilton APRN.WELDING MACHINE SETTER [facility] 09/24/24 IMPRESSION: Ms.Patricia Chino is a [...] rescue medication, nurse is requesting. Forwarded to [employer] for review. Silvia Rogers RN Seizure activity: Name of Caller : Dimitri [place] where pt resides Relationship to patient: Caregiver Contact phone number: [phone] Date of seizure: 11/07/24 Duration: 20 minutes Back to Baseline (Yes/No): yes Emergency treatment needed (Yes/No): no Patient of Dr. Jimenez documented in this encounter [facility] 11-10-2024 Telephone encounter Note Spoke with nurseGisella. Informed of recommendations, gave verbal of rx LCM titration, PHT wean with read back. She is requesting copy of rx sent to their facility. Silvia Rogers RN [facility] 11-10-2024 Telephone encounter Note Script for Nayzilam [...] 4: LCM 100/100, stop PHT Artis Hamilton APRN.WELDING MACHINE SETTER [facility] 11-10-2024 Telephone encounter Note See 11/10/24 phone encounter. Silvia Rogers RN [facility] 11-10-2024 Miscellaneous Notes See 11/10/24 phone encounter. Silvia Rogers RN General call : Full name of person calling: [facility] room Relationship to patient: Phone # : Reason for call: seizure monitoring report Patient of Dr. Jimenez upload documented in this encounter [facility] 11-10-2024 Telephone encounter Note [facility] 09/24/24 IMPRESSION: Ms.Patricia Chino is a 79-year-old [...] rescue medication, nurse is requesting. Forwarded to [facility] [employer] [place] for review. Silvia Rogers RN [facility] 11-10-2024 Telephone encounter Note Seizure activity: Name of Caller : Dimitri Becker [place] where pt resides Relationship to patient: Caregiver Contact phone number: [phone] Date of seizure: 11/07/24 Duration: 20 minutes Back to Baseline (Yes/No): yes Emergency treatment needed (Yes/No): no Patient of Dr. Jimenez [facility] 11-07-2024 Telephone encounter Note General call : Full name of person calling: [facility] room Relationship to patient: Phone # : Reason for call: seizure monitoring report Patient of Dr. Jimenez upload [facility] 09-26-2024 Telephone encounter Note Spoke with Taryn, patient's nurse - provided medication recommendations - she verbalizes understanding via aura Bojorquez RN [facility] Work Phone: 09-26-2024 Miscellaneous Notes Spoke with Taryn, patient's nurse - provided medication recommendations - she verbalizes understanding via aura Bojorquez RN Levels reviewed, VPA still mildly elevated- would decrease dose to 500 mg TID. Can continue other doses unchanged Artsi Hamilton APRN.DWAYNE Images from the original note were not included. Per patient's nurse, Katia - recent labs are trough No ETH level completed Current ASMs: PHT 100 mg BID VPA 750 mg TID ETH 250 mg BID Forwarded to [address] for review/recommendation Sherrell Bojorquez RN Per [facility] of 09/24/2024 w/Dr. Jimenez The doses listed on facility paperwork are different than what was listed on discharge summary at [facility]. Called the facility and confirmed the [...] to Vimpat, zonisamide. documented in this encounter [facility] 09-26-2024 Telephone encounter Note Levels reviewed, VPA still mildly elevated- would decrease dose to 500 mg TID. Can continue other doses unchanged Artis Hamilton APRN.DWAYNE [facility] 09-26-2024 Telephone encounter Note Images from the original note were not included. Per patient's nurse, Katia - recent labs are trough No ETH level completed Current ASMs: PHT 100 mg BID VPA 750 mg TID ETH 250 mg BID Forwarded to [facility] [place] for review/recommendation Sherrell Bojorquez RN Per [facility] of 09/24/2024 w/Dr. Jimenez The doses listed on facility paperwork are different than what was listed on discharge summary at [facility]. Called the facility and confirmed the [...] Future options: Switch Dilantin to Vimpat, zonisamide. [facility] 09-24-2024 Note HNO ID: [id number] Author: JAYANT JIMENEZ MD Service: ? Author Type: Physician Type: Progress Notes Filed: 09/24/2024 11:19 Note Text: [facility] Patient Name: Katheryn GARCIA Date of : 1945 INITIAL EPILEPSY CLINIC NOTE 09/24/2024 8:00 AM CHIEF COMPLAINT: New Patient and Epilepsy HISTORY OF PRESENT ILLNESS Ms. Chino is a 79 year old female seen in [facility] for initial consultation. [...] with AEDs . She moved to a [place] and she has more suervison with AEDs [...] it lasted ~ 25 mins). Admitted to [facility] where Dilantin and Depakote levels were low. Doses were adjusted- PHT 100 mg TID and VPA 1000 mg TID. Zarontin was continued at 250 mg BID. Interval Seizure History The doses listed on facility paperwork are different than what was listed on discharge summary at [facility]. 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 Alumin (more content not included)... [facility] 09-24-2024 History of Present illness Narrative [facility] Patient Name: Katheryn GARCIA Date of : 1945 INITIAL EPILEPSY CLINIC NOTE 09/24/2024 8:00 AM CHIEF COMPLAINT: New Patient and Epilepsy HISTORY OF PRESENT ILLNESS Ms. Chino is a 79 year old female seen in [facility] for initial consultation. [...] with AEDs . [place] moved to a [place] and she has more suervison with AEDs [...] it lasted ~ 25 mins). Admitted to [facility] where Dilantin and Depakote levels were low. Doses were adjusted- PHT 100 mg TID and VPA 1000 mg TID. Zarontin was continued at 250 mg BID. Interval Seizure History The doses listed on facility paperwork are different than what was listed on discharge summary at [facility]. 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 -Vocation: -Education: -Cigarette, [...] impaired coordination greater on the right on znxsfy-yj-grgb testing Postural and action tremor in both [...] precautions - No driving in the state [facility] until seizure free for 6 months. Please [...] which included: preparing to see the patient qdff-[id number] patient care completing clinical documentation obtaining and/or reviewing separately obtained history performing a medically appropriate examination counseling and educating the patient/family/caregiver ordering medications, tests, or procedures Jayant Jimenez MD cc: Primary Care Physician: Orville Mendoza, [address] [phone] Referring: Patient: Ms. Katheryn Chino [id number] [place] [phone] documented in this encounter [facility] [facility] Instructions Jayant Jimenez MD - 09/24/2024 8:56 AM EST Summary of the things we discussed today: We will check blood level of your seizure medications as well as Ammonia (needs to be done at [facility]) I will order a bone scan called DEXA to see if you have suffered osteoporosis due to penitentiary use of seizure medications. Reduce the morning [...] precautions - No driving in the state [facility] until seizure free for 6 months. Please [...] factor. Jayant Jimenez MD Associate Staff, Epilepsy [facility] September 24, 2024 Office phone: [phone] BONE MINERAL DENSITY PATIENT INSTRUCTIONS ======= Bone [...] usual activities immediately. documented in this encounter [facility] 09-22-2024 Telephone encounter Note See 09/05/24 phone encounter PHT 21.9 Range 10 - 20 Taking PHT 100 mg BID Silvia Rogers RN [facility] 09-22-2024 Miscellaneous Notes See 09/05/24 phone encounter PHT 21.9 Range 10 - 20 Taking PHT 100 mg BID Silvia Rogers RN OUTSIDE LAB [facility] PHONE/FAX: [phone] / [phone] COLLECTION DATE AND TIME: 09/19/2024 - 06:15 Uploaded to [employer] documented in this encounter [facility] 09-19-2024 Telephone encounter Note OUTSIDE LAB RE[facility] PHONE/FAX: [phone] / [phone] COLLECTION DATE AND TIME: 09/19/2024 - 06:15 Uploaded to [employer] [facility] 09-05-2024 Telephone encounter Note Spoke with nurse Renae, [facility] - provided recommendation/she verbalizes understanding. Sherrell Bojorquez RN [facility] Work Phone: 09-05-2024 Miscellaneous Notes Spoke with nurse Renae, [facility] - provided recommendation/she verbalizes understanding. Sherrell Bojorquez RN Pt can continue current doses. Artis Hamilton APRN.WELDING MACHINE SETTER Images from the original note were not included. Patient update per nurse Renae [facility]: - Last known seizure: 08/17/2024 - [...] trough NOV: 09/24/2024 w/Dr. Jimenez Forwarded to [address] for review Sherrell Bojorquez RN Per [...] the same. -F/U Epilepsy as outpatient. Called [facility] - left message for nursing staff to contact office Sherrell Bojorquez RN Form received: From (agency / facility / parent): [facility] set up person (if given): Brea Malloy RN Phone #: [phone] Fax # : [phone] Email: n/a Information requested: Review Labs Collected 09/05/2024 - 05:30 for Valproic Acid and Dilantin and approval for medication dosages Patient of Dr. Jimenez Forwarded to nurse. Also uploaded to [employer]. documented in this encounter [facility] 09-05-2024 Telephone encounter Note Pt can continue current doses. Artis Hamilton APRN.DWAYNE [facility] Work Phone: 09-05-2024 Telephone encounter Note Images from the original note were not included. Patient update per nurse Renae, [facility]: - Last known seizure: 08/17/2024 - [...] trough NOV: 09/24/2024 w/Dr. Jimenez Forwarded to [facility] [address] for review Sherrell Bojorquez RN Per neurology [...] Continue the same. -F/U Epilepsy as outpatient. [facility] 09-05-2024 Telephone encounter Note Called [facility] - left message for nursing staff to contact office Sherrell Bojorquez RN [facility] 09-05-2024 Telephone encounter Note Form received: From (agency / facility / parent): [facility] set up person (if given): Brea Malloy RN Phone #: [phone] Fax # : [phone] Email: n/a Information requested: Review Labs Collected 09/05/2024 - 05:30 for Valproic Acid and Dilantin and approval for medication dosages Patient of Dr. Jimenez Forwarded to nurse. Also uploaded to [employer]. [facility] 08-29-2024 Telephone encounter Note Spoke with nurse Kendrick at facility. Informed to continue with current asm dose. Silvia Rogers RN [facility] 08-29-2024 Miscellaneous Notes Spoke with nurse Mireille at facility. Informed to continue with current asm dose. Silvia Rogers RN Level reviewed - pt should continue current dose Artis Hamilton APRN.WELDING MACHINE SETTER Spoke with Mima no further seizures to report and no side effect or medication issues to report. She is doing fine at this time. routed for review Sandra Casey RN Mima of [facility] returning Nurse call. Please call [phone] VPA: 08/27/2024 at 04:55 104: (? to 100) VAP 1000 mg: TID (was increased from 750 mg during recent hospitalization). Previous level ws 94 on 08/06/2024 ======== 08/17/2024 to 08/20/2024 [facility] ======== was patient of Dr. Pereira'jazmyn last seen 09/01/[address] Jimenez on 09/24/2024: new consult ========= Call placed to [facility] [phone] Jimenez's number given to call back Sandra Casey RN OUTSIDE LAB REPORT FACILITY NAME [facility] PHONE/FAX COLLECTION DATE AND TIME: 08/26/24 3297 Uploaded to [facility] Pt scheduled for N/C w/ Dr. Jimenez documented in this encounter [facility] 08-29-2024 Telephone encounter Note Level reviewed - pt should continue current dose Artis Hamilton APRN.WELDING MACHINE SETTER [facility] Work Phone: 08-29-2024 Telephone encounter Note Spoke with Mima no further seizures to report and no side effect or medication issues to report. She is doing fine at this time. routed for review Sandra Casey RN [facility] 08-29-2024 Telephone encounter Note Mima of [facility] returning Nurse call. Please call [phone] [facility] 08-28-2024 Telephone encounter Note VPA: 08/27/2024 at 04:55 104: (? to 100) VAP 1000 mg: TID (was increased from 750 mg during recent hospitalization). Previous level ws 94 on 08/06/2024 ======== 08/17/2024 to 08/20/2024 [facility] ======== was patient of Dr. Pereira'jazmyn last seen 09/01/[address] Jimenez on 09/24/2024: new consult ========= Call placed to [facility] [phone] Jimenez's number given to call back Sandra Casey RN [facility] 08-27-2024 Telephone encounter Note OUTSIDE LAB REPORT FACILITY NAME [facility] PHONE/FAX COLLECTION DATE AND TIME: 08/26/24 0455 Uploaded to [facility] Pt scheduled for N/C w/ Dr. Jimenez [facility] 08-20-2024 Note HNO ID: [id number] Author: NO BENNETT RPh Service: Pharmacy Author [...] list. Pt to be discharged back to [facility], AEDs adjusted as recommended per neurology: -Phenytoin 100 mg TID -Valproic acid 1000 mg TID -Ethosuximide 250 mg BID No additional recommendations. No Bennett [facility] Pager: [phone] 08/20/2024 11:36 AM Medication List START taking [...] 250 mg capsule Commonly known as: DEPAKENE [facility] 08-20-2024 Note HNO ID: [id number] Author: LOLITA SALAZAR RN Service: Care Management Author Type: Registered Nurse Type: Care Mgt Progress Note Filed: 08/20/2024 11:33 Note Text: CARE MANAGEMENT DISCHARGE NOTE SERVICE DATE: August 20, 2024 SERVICE TIME: 11:32 AM Admission Date: 08/17/2024 LOS: 3 days Discharge Arrangement Discharge Arrangement: Extended Care Facility Provider Name: Noel Mosley [phone] Caregiver Assessment Caregiver is ready, willing and able to meet the patient's needs as recommended by the inter-professional team: Yes Name of Caregiver: ECF Transportation Arrangements Transportation Arrangements: Ambulance Transportation Agency and Phone #:: [facility] ( [facility] ) [phone] / [phone] Date of Trip: 08/20/24 Time of Trip: 1200 Type of Service: BLS Non-emergency Is Patient Medicaid Pending?: No Was transportation financial coverage discussed with family?: Family Core Placer Location: [facility] Destination: Noel Mosley [facility] Financial Care Management Responsibility: None Handoff Communication: Handoff to: Primary Care Physician Primary Care Physician Name/Phone: Orville Mendoza DO, Additional Information: Discharge Information Row Name Admission (Current) [place]/17/2024 in [place] [facility] NEURO/CARD [facility] Facility Agency [facility] Pt is being discharged to [facility]. brother Delgado, updated and agreeable. Discharge instructions sent via [employer]ax [employer]. Discharge packet is on pt's chart. RN report number is [phone]. [facility] transport scheduled for 08/20 at 12PM. SIGNATURE: Lolita Salazar RN, BSN PATIENT NAME: Katheryn Chino DATE: August 20, 2024 TIME: 11:32 AM CONTACT #: [phone] [facility] 08-19-2024 Note HNO ID: [id number] Author: ROXI MONTILLA RN Service: Nursing Author Type: Registered Nurse Type: Nursing Progress Note Filed: 08/19/2024 18:35 Note Text: Other: tele order d/c and cleaned and placed at the nurses station. [facility] 08-19-2024 Note SARS-COV-2 (AGENT OF COVID-19) RNA: Not detected INFLUENZA A RNA: Not detected INFLUENZA B RNA: Not detected RESPIRATORY SYNCYTIAL VIRUS (RSV) RNA: Not detected [facility] Comment on above: Performed By: #### 9 [id number] ####[facility] [id number] [address] OF [facility] 08-19-2024 Note HNO ID: [id number] Author: LOLITA SALAZAR RN Service: Care Management Author Type: Registered Nurse Type: Care Mgt Progress Note Filed: 08/19/2024 15:11 Note Text: CARE MANAGEMENT PROGRESS NOTE SERVICE DATE: 08/19/2024 SERVICE TIME: 2:43 PM LOS: 2 days Needs Prior to Discharge: Other: See Comment (Medical stability) IMM Follow Up Copy Given: Yes Copy given to:: Patient Paint Prep Technician Paint Prep Technician Name/Relationship: Dannybrother Method: By Phone Per MD, pt is medically ready for discharge. CM spoke with Roxi ([phone]) at [facility]. Pt is able to return, but referral that was sent through [employer] was not received. Referral sent again. [facility] transport scheduled for 08/19 at 9:30PM. QUINN updated Roxi regarding transport time, Roxi states they are unable to accept pt back at that time. [facility] transport rescheduled for 08/20 at 12PM, discharge packet is on pt's chart. Roxi updated and agreeable. Dr. Dominguez and bedside RN updated. QUINN spoke with Danny, brother, updated and agreeable. Update 1510: [facility] pt return skilled and will need PT/OT evals. PT/OT are not ordered, Dr. Dominguez notified of their request. April also requested a COVID test, Dr. Dominguez notified. SIGNATURE: Lolita Salazar, RN, BSN PATIENT NAME: Katheryn Chino DATE: August 19, 2024 TIME: 2:43 PM PAGER/CONTACT #: [phone] [facility] 08-19-2024 Note HNO ID: [id number] Author: CARYL DOMINGUEZ DO Service: Hospital Medicine Author Type: Physician Type: Progress Notes Filed: 08/19/2024 14:58 Note Text: DEPARTMENT OF HOSPITAL MEDICINE PROGRESS NOTE SERVICE DATE: 08/19/2024 SERVICE TIME: 2:35 PM Hospital Medicine/Primary Attending: Caryl Dominguez DO NIGHT AND WEEKEND COVERAGE: [place] COVERAGE: After 7pm, please call cross cover pager #[phone] Subjective Patient denies complaints, watching the hallmark channel INTERVAL HPI: 79 y/o female with PMHx of Epilepsy who was transfer to [facility] due to breakthrough seizure. Phenytoin and [...] Drains, and Airways Line Duration Peripheral 08/17/242115 [facility] Short Left Antecubital 20 Gauge 1 [...] VTE Prophylaxis/Anticoagulants 08/17/242229 vte current anticoag therapy ([place], [place]) 08/17/242229 activity - mobilize patient ([place]) VTE Prophylaxis: VTE prophylaxis appropriate Disposition: Home Plan of care discussed with: Provider, RN, Patient SIGNATURE: Caryl Dominguez DO PATIENT NAME: Katheryn Chino DATE: August 19, 2024 TIME: 2:35 PM etx [id number] [facility] 08-18-2024 Note HNO ID: [id number] Author: VANESSA LAWSON RN Service: Care Management [...] by: Per Department Practice Potential Transition Plans [facility] Facility/Intermediate Care Facility Advance Directives Current Advance Directive: Health Care Power of Stave Planer Tender In Chart: No Assistant Store Manager Trainee Attempted to Assist with AD Completion: Yes [...] Wheelchair-manual Discharge Planning Patient Goal(s): General wellness [place] of Choice Explained: [place] of Choice Given: Yes Level of Care [...] Arrangements: Ambulance Transportation Agency and Phone #:: [facility] ( [facility] ) [phone] / [phone] Type of Service: BLS Non-emergency Is Patient Medicaid Pending?: No Was transportation financial coverage discussed with family?: Family Core Placer Location: [facility] Destination: [facility] Financial Care Management Responsibility: None Needs Prior to Discharge: Needs Prior to Discharge: To Be Determined Post-Acute Discharge Plan: Spoke with brother Danny via phone. states that he is HCPOA, not on file with [facility]. Patient has been a resident of [facility] for the past 10 years. Return [...] 18, 2024 TIME: 2:16 PM CONTACT #: [phone] [facility] 08-18-2024 Note HNO ID: [id number] Author: CARYL DOMINGUEZ DO Service: Hospital Medicine Author Type: Physician Type: Progress Notes Filed: 08/18/2024 16:30 Note Text: DEPARTMENT OF HOSPITAL MEDICINE PROGRESS NOTE SERVICE DATE: 08/18/2024 SERVICE TIME: 2:15 PM Hospital Medicine/Primary Attending: Caryl Dominguez DO NIGHT AND WEEKEND COVERAGE: [place] COVERAGE: After 7pm, please call cross cover pager #[phone] Subjective INTERVAL HPI: 79 y/o female with PMHx of Epilepsy who was transfer to [facility] due to breakthrough seizure. MEDICATIONS: Reviewed [...] Drains, and Airways Line Duration Peripheral 08/17/242115 [facility] Short Left Antecubital 20 Gauge <1 [...] VTE Prophylaxis/Anticoagulants 08/17/242229 vte current anticoag therapy ([place]) 08/17/242229 activity - mobilize patient ([place]) VTE Prophylaxis: VTE prophylaxis appropriate Disposition: Home Plan of care discussed with: Provider, RN, Patient SIGNATURE: Caryl Dominguez DO PATIENT NAME: Katheryn Chino DATE: August 18, 2024 TIME: 2:15 PM etx [id number] [facility] 08-17-2024 Telephone encounter Note I received a call from the emergency room at [facility] regarding a patient of Dr. Nava. [...] free 3 years. Visit with epileptologist at [facility] and long EEG are indicated [...] Patient has not been seen in the [facility] system since 2019. At the minimum she needs an evaluation to reassess her epilepsy. Francisco Javier Salazar MD Neurology. (Telemedicine neurologist) [facility] Work Phone: 08-17-2024 Miscellaneous Notes I received a call from the emergency room at [facility] regarding a patient of Dr. Nava. [...] free 3 years. Visit with epileptologist at [facility] and long EEG are indicated [...] Patient has not been seen in the [facility] system since 2019. At the minimum she needs an evaluation to reassess her epilepsy. Francisco Javier Salazar MD Neurology. (Telemedicine neurologist) documented in this encounter [facility] 08-10-2023 Miscellaneous Notes Mireille from [facility] called to request medical records for the [...] number to call and schedule the appointment. [phone] documented in this encounter [facility] 08-08-2023 Miscellaneous Notes Appears following with Dr. Pereira. Will forward. Duncan Nava MD I did not order labs. Pt needs follow up. Not seen in 3+ years. Duncan Nava MD Fax received from [facility] requesting labs to be reviewed by Dr. Nava and a reply. Pt has not been seen in neurology department since 2019. Please review and advise. 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) use of other agents affecting estrogen receptors and estrogen levels Encounter for screening for osteoporosis Special screening for osteoporosis [facility] Diagnosis Intractable epilepsy without status epilepticus, unspecified epilepsy type (HCC) [facility] Diagnosis Intractable epilepsy without status epilepticus, unspecified epilepsy type (HCC)- Primary [facility] Diagnosis Intractable epilepsy without status epilepticus, unspecified epilepsy type (HCC) [facility] Diagnosis 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 osteoporosis Special screening for osteoporosis 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 supervisor (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) use of other agents affecting estrogen receptors and estrogen levels [facility] Diagnosis Osteoporosis without current pathological fracture, unspecified osteoporosis type- Primary [facility] Diagnosis Intractable epilepsy without status epilepticus, unspecified epilepsy type (HCC) documented in this encounter [facility] note* Diagnosis Sepsis due to urinary tract infection (HCC)- Primary Sepsis due to urinary tract infection (HCC) Breakthrough seizure (CMS/HCC) (HCC) Fever, unspecified fever cause documented in this encounter [facility] note* Diagnosis Intractable epilepsy without status epilepticus, unspecified epilepsy type (HCC)- Primary documented in this encounter [facility] note* Diagnosis Intractable epilepsy without status epilepticus, unspecified epilepsy type (HCC) Osteoporosis without current pathological fracture, unspecified osteoporosis type documented in this encounter [facility] note* Diagnosis Intractable epilepsy without status epilepticus, unspecified epilepsy type (HCC)- Primary documented in this encounter [facility] note* Diagnosis Osteoporosis without current pathological fracture, unspecified osteoporosis type- Primary Wheelchair dependent Wheelchair 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) History of long-term treatment with high-risk medication Encounter for long-term (current) use of other medications documented in this encounter [facility] note* Diagnosis Postmenopausal osteoporosis- Primary Senile osteoporosis documented in this encounter [facility] note* Diagnosis Hyperparathyroid (HCC)- Primary Elevated parathyroid hormone Unspecified endocrine disorder documented in this encounter [facility] for referral (narrative)* Diagnostic Procedure Only (Routine) - Authorized Specialty Diagnoses / Procedures Referred By Melanie reina Referred To Contact XR IMAGING Diagnoses 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 receptors and estrogen levels Procedures DXA-AXIAL SKELETON DXA BONE DENSITY STUDY 1/> SITES AXIAL Jayant Villeda MD [address] [place] [address] Xr Imaging [place] [address] Referral ID Status Reason Start Date Expiration Date Visits Requested Visits Authorized [id number] Authorized Auto-Generat ed Referral 4 10/24/2025 1 1 [facility] for referral (narrative)No reason for referral information availableWLima [facility] Work Phone: Reason for visit Narrative* Diagnostic Procedure Only (Routine) - Closed Specialty Diagnoses / Procedures Referred By Melanie t Referred To Contact XR IMAGING Diagnoses 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 osteoporosis senior living (current) use of other agents affecting estrogen receptors and estrogen levels Procedures DXA-AXIAL SKELETON DXA BONE DENSITY STUDY / SITES AXIAL Jayant Villeda MD [address] [place] [address] Phone: tel: fax: [place] [address] Referral ID Status Reason Start Date Expiration Date V isits Requested Visits Authorized [id number] Closed Auto-Generate d Referral 09/24/2024 10/24/2025 1 1 [facility] Summary Purpose Family History No Family History Records FoundNo Family History Records FoundNo Family History Records FoundNo Family History Records FoundNo Family History Records FoundNo Family History Records FoundNo Family History Records FoundNo Family History Records Found Advance Directives No Advanced Directives Records Found Advance Directive Response Recorded Date/ Time Name of Medical Power of Stave Planer Tender Danny Ledesma September 18, 2023 10:22am Living Will Yes September 18 10:22am Power of Stave Planer Tender Yes September 18, 2023 10:22am Documents on File Type Date 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 Advance Directive(s) 08/21/2024 2:00 PM Advance Directive(s) 08/21/2024 1:57 PM Date Activated Date Inactivated Comments 08/18/2024 12:17 PM 08/20/2024 4:37 PM Question Answer Comments DNR Order Discussed With: Surrogate Decision Ryley er Surrogate Decision Maker Relationship: Health Ca re Power of Stave Planer Tender Agent Date Activated Date Inactivated Comments 08/17/2024 10:16 PM 08/18/2024 12:17 PM Question Answer Comments DNR Order Discussed With: State-Approved DNR Mariana ntification Documents on File Type Date Recorded 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 Yes December 03, 2024 10:35am Name of Medical Power of Stave Planer Tender Danny Chino December 03, 2024 10:35am Chief Complaint and Reason for Visit Chief Complaint ALF LAB WOR K ALF BLOOD WORK ALF LAB WORK ALF LABWORK ALF LABWORK Chief Complaint ALF BLOOD W ORK ALF LAB WORK ALF LABWORK ALF LABWORK Chief Complaint ALF LABWORK ALF LABWORK ALF LAB WORK Chief Complaint ALF LAB WOR K LABWORK Chief Complaint LABWORK Chief Complaint LABWORK ALF LABWORK ALF LAB WORK LABWORK Chief Complaint ALF LAB WOR K LABWORK Chief Complaint ALF LAB WOR K LABWORK LABWORK Chief Complaint LABWORK LABWORK SEIZURE Chief Complaint LABWORK LABWORK SEIZURE ALF LABWORK Chief Complaint LABWORK LABWORK SEIZURE ALF LABWORK LABWORK Chief Complaint Admit Date LAB WORK September 17, 2024 5 :30am LAB WORK September 19, 2024 5 :00am LABWORK September 22, 2024 5 :00am LAB WORK September 26, 2024 5:00am LABWORK September 29, 2024 5:00am ALF LAB WORK November 14, 2024 5:00am seizure December 03, 2024 9:32am LABWORK December 10, 2024 5:00am ALF LAB WORK December 15, 2024 5: 00am Chief Complaint Admit Date LAB WORK September 19, 2024 5 :00am LABWORK September 22, 2024 5 :00am LAB WORK September 26, 2024 5:00am LABWORK September 29, 2024 5:00am ALF LAB WORK November 14, 2024 5:00am seizure December 03, 2024 9:32am LABWORK December 10, 2024 5:00am ALF LAB WORK December 15, 2024 5: 00am ALF LAB WORK December 26, 2024 5 :00am Chief Complaint Admit Date ALF LAB WORK November 14, 2024 5:00am seizure December 03, 2024 9:32am LABWORK December 10, 2024 5:00am ALF LAB WORK December 15, 2024 5: 00am ALF LAB WORK December 26, 2024 5 :00am ALF LAB WORK January 19, 2025 5: 00am Chief Complaint Admit Date ALF LAB WORK November 14, 2024 5:00am seizure December 03, 2024 9:32am LABWORK December 10, 2024 5:00am ALF LAB WORK December 15, 2024 5: 00am ALF LAB WORK December 26, 2024 5 :00am ALF LAB WORK January 19, 2025 5: 00am LABWORK January 28, 2025 5:0 0am Chief Complaint Admit Date ALF LAB WORK November 14, 2024 5:00am seizure December 03, 2024 9:32am LABWORK December 10, 2024 5:00am ALF LAB WORK December 15, 2024 5: 00am ALF LAB WORK December 26, 2024 5 :00am ALF LAB WORK January 19, 2025 5: 00am LABWORK January 28, 2025 5:0 0am ALF LAB WORK February 02, 2025 5 :00am Chief Complaint Admit Date ALF LAB WORK December 15, 2024 5: 00am ALF LAB WORK December 26, 2024 5 :00am ALF LAB WORK January 19, 2025 5: 00am LABWORK January 28, 2025 5:0 0am ALF LAB WORK February 02, 2025 5 :00am ALF LAB WORK February 27, 2025 5:0 0am LABWORK March 04, 2025 5:00a m ALF LAB WORK March 10, 2025 5:0 0am Additional Source Comments INFORMATION SOURCE (unrecogn ized section and content) DATE CREATED AUTHOR 01/24/2019 [facility] DATE CREATED AUTHOR AUTHOR'S ORGANIZ ATION 07/30/2019 [facility] DATE CREATED AUTHOR AUTHOR'S ORGANIZ ATION 12/05/2024 [facility] DATE CREATED AUTHOR AUTHOR'S ORGANIZ ATION 12/17/2024 [facility] DATE CREATED AUTHOR AUTHOR'S ORGANIZ ATION 01/18/2025 [facility] DATE CREATED AUTHOR AUTHOR'S ORGANIZ ATION 04/22/2025 [facility] DATE CREATED AUTHOR AUTHOR'S ORGANIZ ATION 05/28/2025 [facility] Goals (unrecognized section and content) Goals [...] Dates Orville Mendoza Primary Care Provider, Attending Provsandy ugarte Active Team Status: Inactive Member Role Status Dates Orville Mendoza Primary Care Provider Active Toddkathrine Velasquez MD Attending Provider Active Team Status: Inactive Member Role Status Dates Todd Velasquez MD Primary Care Provide r, Attending Provider, Referring Provider Active Team Status: Inactive Member Role Status Dates Todd Velasquez MD Primary Care Provider, Attending Pro vider Active Project Scientist Relationship Specialty Start Date End Date Orville Mendoza [address] [place] [id number] PCP - General Family Medicine 08/07/18 Claudia Gaston APRN.WELDING MACHINE SETTER [address] [place] [address] Referring Neurosurgery 07/29/19 Project Scientist Relationship Specialty Start Date End Date Orville Mendoza [address] [place] [address] PCP - General Family Medicine 08/07/18 Claudia Gaston APRN.WELDING MACHINE SETTER [address] [place] [address] Referring Neurosurgery 07/29/19 Team Status: Active Member [...] Team Status: Inactive Member Role Status Dates oTdd FOX MD Primary Care Provider Active Dr. Kee Amezquita MD Attending Provid er, Referring Provider, Emergency Provider Active Team Status: Active Member Role Status Dates Todd FOX MD Primary Care Provider, Attending Provider Active Project Scientist Relationship Specialty Start Date End Date StephOrville rockwell DO [address] [place] [address] PCP - General Family Medicine 08/07/18 Claudia Gaston, ANYI.WELDING MACHINE SETTER [address] [place] [address] Referring Neurosurgery 07/29/19 Project Scientist Relationship Specialty Start Date End Date Orville Mendoza DO [address] [place] [address] PCP - General Family Medicine 08/07/18 Claudia Gaston APRN.WELDING MACHINE SETTER [address] [place] [address] Referring Neurosurgery 07/29/19 Project Scientist Relationship Specialty Start Date End Date Orville Mendoza DO [address] [place] [address] PCP - General Family Medicine 08/07/18 Claudia Gaston APRN.WELDING MACHINE SETTER [address] [place] [address] Referring Neurosurgery 07/29/19 Project Scientist Relationship Specialty Start Date End Date Orville Mendoza DO [address] [place] [address] PCP - General Family Medicine 08/07/18 Claudia Gaston APRN.WELDING MACHINE SETTER [address] [place] [address] Referring Neurosurgery 07/29/19 Project Scientist Relationship Specialty Start Date End Date Orville Mendoza DO [address] [place] [address] PCP - General Family Medicine 08/07/18 Claudia Gaston, ANYI.WELDING MACHINE SETTER [address] [place] [address] Referring Neurosurgery 07/29/19 Project Scientist Relationship Specialty Start Date End Date Orville Mendoza DO [address] [place] [address] PCP - General Family Medicine 08/07/18 Claudia Gaston APRN.WELDING MACHINE SETTER [address] [place] [address] Referring Neurosurgery 07/29/19 Project Scientist Relationship Specialty Start Date End Date Orville Mendoza DO [address] [place] [address] PCP - General Family Medicine 08/07/18 Claudia Gaston, ANYI.WELDING MACHINE SETTER [address] [place] [address] Referring Neurosurgery 07/29/19 Project Scientist Relationship Specialty Start Date End Date Orville Mendoza, DO [address] [place], [place] [id number] PCP - General Family Medicine 08/07/18 Claudia Gaston, CERAMIC WORKER.WELDING MACHINE SETTER [address] [place] [address] Referring Neurosurgery 07/29/19 Project Scientist Relationship Specialty Start Date End Date Orville Mendoza, DO [address] [place] [address] PCP - General Family Medicine 08/07/18 Claudia Gaston, CERAMIC WORKER.WELDING MACHINE SETTER [address] [place] [address] Referring Neurosurgery 07/29/19 Project Scientist Relationship Specialty Start Date End Date Orville Mendoza, DO [address] [place] [address] PCP - General Family Medicine 08/07/18 Claudia Gaston, ANYI.WELDING MACHINE SETTER [address] [place] [address] Referring Neurosurgery 07/29/19 Project Scientist Relationship Specialty Start Date End Date StephOrville rockwell, DO [address] [place] [address] PCP - General Family Medicine 08/07/18 Claudia Gaston, ANYI.WELDING MACHINE SETTER [address] [place] [address] Referring Neurosurgery 07/29/19 Project Scientist Relationship Specialty Start Date End Date StephOrville rockwell, DO [address] [place] [address] PCP - General Family Medicine 08/07/18 Claudia Gaston, CERAMIC WORKER.WELDING MACHINE SETTER [address] [place] [address] Referring Neurosurgery 07/29/19 Project Scientist Relationship Specialty Start Date End Date StephOrville rockwell, DO [address] [place] [address] PCP - General Family Medicine 08/07/18 Claudia Gaston, CERAMIC WORKER.WELDING MACHINE SETTER [address] [place] [address] Referring Neurosurgery 07/29/19 Project Scientist Relationship Specialty Start Date End Date LisaOrville loving, DO [address] [place], [place] [id number] PCP - General Family Medicine 08/07/18 Claudia Gaston APRN.WELDING MACHINE SETTER [address] [place] [address] Referring Neurosurgery 07/29/19 Project Scientist Relationship Specialty Start Date End Date LisaOrville loving DO [address] [facility] [address] [place] [id number] PCP - General 03/15/19 Project Scientist Relationship Specialty Start Date End Date StephOrville rockwell [address] [place] [address] PCP - General Family Medicine 08/07/18 Claudia Gaston APRN.WELDING MACHINE SETTER [address] [place] [address] Referring Neurosurgery 07/29/19 Team Status: Active Member [...] Care Provider Active Start: November 08, 2024 [facility] Attending Provider Active Start: November 08, 2024 [...] Provider Active S tart: December 26, 2024 Project Scientist Relationship Specialty Start Date End Date Orville Mendoza DO [facility] [place] [address] PCP - General Family Medicine 08/07/18 Claudia Gaston APRN.WELDING MACHINE SETTER [address] [place] [address] Referring Neurosurgery 07/29/19 Team Status: Inactive Member [...] Provider Active S tart: February 02, 2025 Project Scientist Relationship Specialty Start Date End Date Orville Mendoza DO [address] [place] [address] PCP - General Family Medicine 08/07/18 Claudia Gaston APRN.WELDING MACHINE SETTER [address] [place] [address] Referring Neurosurgery 07/29/19 Team Status: Inactive Member [...] Status Dates Dr. Todd Velasquez Sr. , Primary Care Provider Active Start: March 10, 2025 End: March 10, 2025 Todd FOX MD Attending Provider Active S tart: March 10, 2025 End: March 10, 2025 Team Status: Active Member Role/Relationship Status Dates Dr. Todd Velasquez Sr. , Primary Care Provider Active Start: April 06, 2025 Todd FOX MD Attending Provider Active S tart: April 06, 2025 Project Scientist Relationship Specialty Start Date End Date Orville Mendoza DO [address] [place] [address] PCP - General Family Medicine 08/07/18 Claudia Gaston APRN.[facility] [address] [place] [address] Referring Neurosurgery 07/29/19 Source Comments (unrecognize d section and content) In the event this informatio n is protected by the Federal Confidentiality of Alcohol and Drug Abuse Patient Records regulations: The Federal rules restrict any use of the information to criminally investigate or prosecute any alcohol or drug abuse patient.[facility] the event this information is protected by the Federal Confidentiality of Alcohol and Drug Abuse Patient Records regulations: The Federal rules restrict any use of the information to criminally investigate or prosecute any alcohol or drug abuse patient.[facility] HospitalIn the event this information is protected by the Federal Confidentiality of Alcohol and Drug Abuse Patient Records regulations: The Federal rules restrict any use of the information to criminally investigate or prosecute any alcohol or drug abuse patient.[facility] HospitalIn the event this information is protected by the Federal Confidentiality of Alcohol and Drug Abuse Patient Records regulations: The Federal rules restrict any use of the information to criminally investigate or prosecute any alcohol or drug abuse patient.[facility] HospitalIn the event this information is protected by the Federal Confidentiality of Alcohol and Drug Abuse Patient Records regulations: The Federal rules restrict any use of the information to criminally investigate or prosecute any alcohol or drug abuse patient.[facility] HospitalIn the event this information is protected by the Federal Confidentiality of Alcohol and Drug Abuse Patient Records regulations: The Federal rules restrict any use of the information to criminally investigate or prosecute any alcohol or drug abuse patient.[facility] HospitalIn the event this information is protected by the Federal Confidentiality of Alcohol and Drug Abuse Patient Records regulations: The Federal rules restrict any use of the information to criminally investigate or prosecute any alcohol or drug abuse patient.[facility] HospitalIn the event this information is protected by the Federal Confidentiality of Alcohol and Drug Abuse Patient Records regulations: The Federal rules restrict any use of the information to criminally investigate or prosecute any alcohol or drug abuse patient.[facility] HospitalIn the event this information is protected by the Federal Confidentiality of Alcohol and Drug Abuse Patient Records regulations: The Federal rules restrict any use of the information to criminally investigate or prosecute any alcohol or drug abuse patient.[facility] HospitalIn the event this information is protected by the Federal Confidentiality of Alcohol and Drug Abuse Patient Records regulations: The Federal rules restrict any use of the information to criminally investigate or prosecute any alcohol or drug abuse patient.[facility] HospitalIn the event this information is protected by the Federal Confidentiality of Alcohol and Drug Abuse Patient Records regulations: The Federal rules restrict any use of the information to criminally investigate or prosecute any alcohol or drug abuse patient.[facility] HospitalIn the event this information is protected by the Federal Confidentiality of Alcohol and Drug Abuse Patient Records regulations: The Federal rules restrict any use of the information to criminally investigate or prosecute any alcohol or drug abuse patient.[facility] HospitalIn the event this information is protected by the Federal Confidentiality of Alcohol and Drug Abuse Patient Records regulations: The Federal rules restrict any use of the information to criminally investigate or prosecute any alcohol or drug abuse patient.[facility] HospitalIn the event this information is protected by the Federal Confidentiality of Alcohol and Drug Abuse Patient Records regulations: The Federal rules restrict any use of the information to criminally investigate or prosecute any alcohol or drug abuse patient.[facility] HospitalIn the event this information is protected by the Federal Confidentiality of Alcohol and Drug Abuse Patient Records regulations: The Federal rules restrict any use of the information to criminally investigate or prosecute any alcohol or drug abuse patient.[facility] HospitalIn the event this information is protected by the Federal Confidentiality of Alcohol and Drug Abuse Patient Records regulations: The Federal rules restrict any use of the information to criminally investigate or prosecute any alcohol or drug abuse patient.[facility] HospitalIn the event this information is protected by the Federal Confidentiality of Alcohol and Drug Abuse Patient Records regulations: The Federal rules restrict any use of the information to criminally investigate or prosecute any alcohol or drug abuse patient.[facility] HospitalIn the event this information is protected by the Federal Confidentiality of Alcohol and Drug Abuse Patient Records regulations: The Federal rules restrict any use of the information to criminally investigate or prosecute any alcohol or drug abuse patient.[facility] HospitalIn the event this information is protected by the Federal Confidentiality of Alcohol and Drug Abuse Patient Records regulations: The Federal rules restrict any use of the information to criminally investigate or prosecute any alcohol or drug abuse patient.[facility] HospitalIn the event this information is protected by the Federal Confidentiality of Alcohol and Drug Abuse Patient Records regulations: The Federal rules restrict any use of the information to criminally investigate or prosecute any alcohol or drug abuse patient.[facility] HospitalIn the event this information is protected by the Federal Confidentiality of Alcohol and Drug Abuse Patient Records regulations: The Federal rules restrict any use of the information to criminally investigate or prosecute any alcohol or drug abuse patient.[facility] HospitalIn the event this information is protected by the Federal Confidentiality of Alcohol and Drug Abuse Patient Records regulations: The Federal rules restrict any use of the information to criminally investigate or prosecute any alcohol or drug abuse patient.[facility] HospitalIn the event this information is protected by the Federal Confidentiality of Alcohol and Drug Abuse Patient Records regulations: The Federal rules restrict any use of the information to criminally investigate or prosecute any alcohol or drug abuse patient.[facility] HospitalIn the event this information is protected by the Federal Confidentiality of Alcohol and Drug Abuse Patient Records regulations: The Federal rules restrict any use of the information to criminally investigate or prosecute any alcohol or drug abuse patient.[facility] HospitalIn the event this information is protected by the Federal Confidentiality of Alcohol and Drug Abuse Patient Records regulations: The Federal rules restrict any use of the information to criminally investigate or prosecute any alcohol or drug abuse patient.[facility] HospitalIn the event this information is protected by the Federal Confidentiality of Alcohol and Drug Abuse Patient Records regulations: The Federal rules restrict any use of the information to criminally investigate or prosecute any alcohol or drug abuse patient.[facility] HospitalIn the event this information is protected by the Federal Confidentiality of Alcohol and Drug Abuse Patient Records regulations: The Federal rules restrict any use of the information to criminally investigate or prosecute any alcohol or drug abuse patient.[facility] Reason for Visit (unrecogniz ed section and content) Reason Comments Results Reason Comments Release Of Medical Records Reason Comments Outside Labs Results VPA Reason Comments Forms Review results and o rders Reason Comments Outside Lab Results PHENYTOIN Reason Comments New Patient Epilepsy Reason Comments Outside Lab Results [facility] Reason Comments general seizure monitoring r eport Reason Comments Seizures Reason Comments Received Outside Medical Records Seizure monitoring report Reason Onset Date Comments Refill Request 11/11/2024 Reason Comments [facility] Slinger - Other Reason Comments Other Seizure monitoring Reason Comments Seizures [place] transfer. Pt from [facility] for 38 minute witnessed seizure this [...] fever cause Procedures . Fazal Garza MD [address] [place] [address] Phone: tel: fax: [facility] Epilepsy Monitoring Unit [address] [place] [phone] Phone: tel: fax: Referral ID Status Reason Start Date Expiration Date Visits Re quested Visits Authorized [id number] 1 Reason Comments Outside Lab Results lacosamide Reason Comments Orders [employer] Home Reason Comments Medication Problem Nayzilam - Medicatio n Not Working Reason Comments Follow Up Epilepsy Reason Comments Medication Problem Lacosamide Reason Comments New Patient Specialty Diagnoses / Procedures Referred By Contac t Referred To Contact Rheumatology Diagnoses Osteoporosis without current pathological fracture, unspecified osteoporosis type Procedures CONSULT TO RHEUM/IMMUN DISEASE OFFICE/OUTPATIENT [facility] 60 MINUTES Jayant Jimenez MD [address] [place] [address] Phone: tel: fax: Referral ID Status Reason Start Date Expiration Date V isits Requested Visits Authorized [id number] Closed PCP Requested Referral 12/01/2024 12/01/2025 1 [...] Provider: Jeanne Avina RN - Comment: [facility]) 0944 (Given - Provider: Adam Pimentel RN) [...] LPN) 0928 (Given - Provider: Kaylee Carrasco, RN) 0942 (Given - Provider: Adam Pimentel, RN) lacosamide (Vimpat) tablet 150 mg 150 [...] RN) 0942 (Given - Provider: Adam Pimentel, RN) [...] daily, First dose (after last modification) on Sun12/04/24 at 1400 0848 (Given - Provider: Fausto Linn LPN)2049 (Given - Provider: Jeanne Avina, RN) 927 (Given - Provider: Kaylee Carrasco, RN)2101 (Given - Provider: Jeanne Avina, MEGA) 09 (Given - Provider: Adam Pimentel, MEGA) PRN Medication Order 12/06/2024 12/07/2024 12/08/2024 acetaminophen [...] BE BASED ON THE PRIMARY CLINICAL RECORDS. [facility], [facility]. provides no warranty or guarantee of the accuracy or completeness of information in this document.
[2025-06-01 08:58] LABS: Valproic Acid (Depakene) Level 91 ug/mL (50-100)
== END ==
LOC: OLS.ACH 05:00
PROVIDERS: PCP Internal Medicine; Visit Provider Internal Medicine
DX: G40.909 Epilepsy, unspecified, not intractable, without status epilepticus (principal)
CPT/HCPCS: 36415; 80164; 84443

== ENCOUNTER → 2025-06-17 05:00 | Outpatient (REF) | payer MEDICARE, OTHER, MEDICAID, SELFPAY | LOC: OLS.ACH 05:00 | PROVIDERS: PCP Internal Medicine; Visit Provider Internal Medicine | DX: E03.9 Hypothyroidism, unspecified (principal) | CPT/HCPCS: 36415; 84443 ==

== ENCOUNTER 2025-08-09 07:08 | Emergency (ER) | payer MEDICARE, OTHER, MEDICAID, SELFPAY ==
[2025-08-09 07:10] VITALS: BP 155/77; PULSE 81; RESP 18; TEMP 36.8; O2SAT 97; BMI 34.2
--- NOTE | 2025-08-09 07:11 | EX.ED.UPPERE ---
HPI History of Present Illness Chief Complaint: Upper Extremity Injury Detail of Chief Complaint: Reported fracture left shoulder Informant: patient and EMS Occured/Mechanism Mechanism/Context: Yes injury, Yes blunt trauma, Yes fall and Yes same level fall Comment: Patient fell yesterday. Had x-rays that were interpreted today as fracture. Onset/Context/Timing Onset: Yesterday Context: Sudden Onset Timing: Continuous Quality of Pain: Dull and Aching Location: Left shoulder Current Severity: Severe Maximum Severity: Severe Worsened by: Any type of movement passive or active Relieved by: Nothing Associated Symptoms Associated Symptoms: Positive for Loss of Funtion; Negative for Parasthesia or Weakness Narrative Narrative: Patient is a 80-year-old [id number] woman. She presents by ambulance from nursing facility. Patient reportedly fell yesterday. She had an x-ray which revealed a shoulder fracture. She is right-hand dominant. She injured her left shoulder. She is reluctant to move it. She denies paresthesia, anesthesia buttocks. She denies chest pain or shortness of breath. She denies neck pain. There is no history of head trauma. Review of her medication indicates she is on no anticoagulant. Prior similar symptoms: No Recent Illness/Hospitalization: No PFSH PFS Medical History Dysphagia, oropharyngeal phase Generalized anxiety disorder Plantar fascial fibromatosis Primary osteoarthritis, right hand Primary osteoarthritis, right wrist Hypokalemia Other specified peripheral vascular diseases Cervicalgia Personal history of COVID-19 Degenerative disease of nervous system, unspecified Heart failure, unspecified Hypertensive heart disease with heart failure Changes in retinal vascular appearance, bilateral Dry eye syndrome of bilateral lacrimal glands Major depressive disorder, recurrent, unspecified Cognitive communication deficit Dysthymic disorder Other secondary cataract, left eye Insomnia, unspecified Age-related physical debility Weakness Other lack of coordination Unspecified abnormalities of gait and mobility Other optic atrophy, right eye Presbyopia Age-related osteoporosis without current pathological fracture Allergic rhinitis, unspecified Functional urinary incontinence Primary generalized (osteo)arthritis Unspecified intellectual disabilities Dysarthria and anarthria Other specified mental disorders due to known physiological condition Diaphragmatic hernia without obstruction or gangrene Gastro-esophageal reflux disease without esophagitis Hypothyroidism, unspecified Peptic ulcer, site unspecified, unspecified as acute or chronic, without hemorrhage or perforation Unspecified dementia, unspecified severity, with anxiety Epilepsy, unspecified, not intractable, without status epilepticus Home Medications Medication Instructions Recorded Last Taken Type acetaminophen 325 mg tablet 650 mg PO DAILY PAIN 09/18/23 08/08/25 History albuterol sulfate 90 mcg/actuation 2 inh inhalation Q4H PRN shortness 09/18/23 07/28/25 History aerosol inhaler of breath or wheezing cholecalciferol (vitamin D3) 50 50 mcg PO DAILY 09/18/23 08/08/25 History mcg (2,000 unit) tablet docusate sodium 100 mg capsule 100 mg PO DAILY PRN constipation 09/18/23 08/08/25 History escitalopram oxalate 20 mg tablet 20 mg PO DAILY 09/18/23 08/08/25 History ethosuximide 250 mg capsule 250 mg PO Q12H 09/18/23 08/08/25 History furosemide 20 mg tablet 20 mg PO MOWEFR 09/18/23 07/22/25 History levothyroxine 50 mcg tablet 50 mcg PO DAILY 09/18/23 08/08/25 History losartan 25 mg tablet 25 mg PO DAILY 09/18/23 08/08/25 History melatonin 3 mg tablet 3 mg PO DAILY 09/18/23 08/08/25 History potassium chloride 10 mEq 10 meq PO DAILY 09/18/23 Unknown History tablet,extended release valproic acid 250 mg capsule 500 mg PO Q8H 09/18/23 08/08/25 History ipratropium 0.5 mg-albuterol 3 mg 3 ml inhalation Q6H PRN shortness 08/17/24 Unknown History (2.5 mg base)/3 mL nebulization of breath or wheezing soln lacosamide 100 mg tablet 100 mg PO Q12H 12/03/24 08/08/25 History lacosamide 50 mg tablet 50 mg PO QHS 12/03/24 08/08/25 History calcium carbonate-vitamin D3 1 tab PO DAILY 08/09/25 08/08/25 History fluticasone propionate 50 2 spray intranasal DAILY 08/09/25 07/29/25 History mcg/actuation nasal spray,suspension hydrocodone-acetaminophen 5-325mg 1 tab PO Q6H PRN PRN Pain 3 days 08/09/25 Unknown Rx 5mg-325mg #10 TABLETS pantoprazole 20 mg tablet,delayed 20 mg PO DAILY 08/09/25 08/08/25 History release Allergy/AdvReac Type Severity Reaction Status Date / Time No Known Allergies Allergy Verified 12/03/24 09:38 Social History Smoking Status: Never smoker ROS ROS ED Eyes Eyes: Denies blurry vision or change in vision ENT ENT ED: Reports other Details: Denies tinnitus. ; Denies rhinorrhea Cardiovascular Cardiovascular: Denies chest pain or palpitations Respiratory/Chest Respiratory/Chest: Denies cough, dyspnea or dyspnea on exertion Gastrointestinal Gastrointestinal: Denies nausea or vomiting Musculoskeletal Musculoskeletal: Reports other Details: Left shoulder pain ; Denies neck pain Neurologic Neurologic: Denies paresthesias or weakness Hematologic/Lymphatic Hematologic/Lymphatic: Denies easy bleeding or easy bruising EXAM Physical Exam Const Positive well nourished and well developed Constitutional Narrative: Patient appears uncomfortable. General Appearance ED: well developed; Negative for cyanotic or diaphoretic HEENT Reports moist mucous membranes normocephalic and atraumatic Eyes PERRL and EOMs intact bilaterally Neck full ROM Resp normal respiratory effort Cardio regular rate and regular rhythm GI non-tender and non-distended Palpation: soft Extremity Negative for normal to inspection or full ROM Extremity Narrative: Patient has swelling of the left shoulder. There is no pain ovation over the clavicle or AC joint. There is no pain ovation of the lateral medial epicondyle, olecranon process or radial head. There is no pain the patient over the distal radius or ulna. There is no pain the patient of the carpal bones, metacarpal bones or phalanges. Axillary, median, radial and ulnar function intact. Radial pulses palpable. Neuro oriented x3 and CN's II-XII intact bilaterally Sensorium / Orientation: alert Psych mental status grossly normal Skin Lesions: no lesions Rashes: no rashes MDM MDM MDM Narrative Medical decision making narrative: Will obtain x-ray to confirm that she has a fracture. More plainly the type of fracture and where the fracture is located since this will affect treatment since the images were not sent in nor was the report. Patient states she was given Tylenol. She still having significant pain. [place] was ordered. Radiology report was sent. This indicates patient has a proximal humeral fracture. It does not specify whether it is the anatomical neck versus surgical neck and does not describe if this is impacted, displaced, angulated excetra. Therefore x-ray was repeated. History & Record Review Additional record(s) reviewed:: Prior inpatient record (Admitted November of this year by me for aspiration pneumonitis. She was seen August 2024 for hypertension and prior for breakthrough seizure September 2023), Prior ED visit and Prior labs Radiography Chest X-Ray - ED: Read by ED Physician (Three-view x-ray of the shoulder reveals a slightly displaced proximal humeral fracture involving the surgical neck. There is no abnormality of the clavicle or AC joint. There is some mild arthritic changes noted. This is entirely reviewed interpreted by me at 0757) Treatment and Re-Evaluation Narrative: Based on x-ray findings treatment is conservative i.e. sling and swath and pain medicine. Will have her follow-up with Dr. Hua who is on for orthopedics. Discharge Plan Triage Chief Complaint: Upper Extremity Injury ED Provider: Damir Escamilla Dx/Rx/DC Orders Clinical Impression: Closed traumatic displaced fracture of proximal end of left humerus, Injury due to fall, Elevated blood pressure reading with diagnosis of hypertension, History of hypothyroidism, Hx of gastroesophageal reflux (GERD) Instructions: ED Fracture, Shoulder Prescriptions: New hydrocodone-acetaminophen 5-325 mg tablet 1 tab PO Q6H PRN PRN (Reason: Pain) 3 Days Qty: 10 0RF No Action docusate sodium 100 mg capsule 100 mg PO DAILY PRN (Reason: constipation) acetaminophen 325 mg tablet 650 mg PO DAILY cholecalciferol (vitamin D3) 50 mcg (2,000 unit) tablet 50 mcg PO DAILY potassium chloride 10 mEq tablet extended release 10 meq PO DAILY valproic acid 250 mg capsule 500 mg PO Q8H albuterol sulfate 90 mcg/actuation HFA aerosol inhaler 2 inh inhalation Q4H PRN (Reason: shortness of breath or wheezing) furosemide 20 mg tablet 20 mg PO MOWEFR levothyroxine 50 mcg tablet 50 mcg PO DAILY escitalopram oxalate 20 mg tablet 20 mg PO DAILY losartan 25 mg tablet 25 mg PO DAILY melatonin 3 mg tablet 3 mg PO DAILY ethosuximide 250 mg capsule 250 mg PO Q12H lacosamide 50 mg tablet 50 mg PO QHS Patient Comments: WITH 100MG lacosamide 100 mg tablet 100 mg PO Q12H Patient Comments: am & hs with 50mg ipratropium-albuterol 0.5 mg-3 mg(2.5 mg base)/3 mL solution for nebulization 3 ml inhalation Q6H PRN (Reason: shortness of breath or wheezing) fluticasone propionate 50 mcg/actuation spray,suspension 2 spray INTRANASAL DAILY calcium carbonate-vitamin D3 [Oyster Shell Calcium-Vit D3] 1 tab PO DAILY pantoprazole 20 mg tablet,delayed release (DR/EC) 20 mg PO DAILY Primary Care Provider: Todd Velasquez Sr. Referrals: Berlin Lay MD [Med Staff - Active Staff, Orthopedics] - 5-7 Days Todd Velasquez Sr., DO [Primary Care Provider, Integrative Medicine] Activity Restrictions/Additional Instructions: 1. Take medication as prescribed for pain. 2. Apply ice to shoulder 6-8 times a day. Print Language: Hebrew Disposition Disposition: Home, Self Care
[2025-08-09] MEDS: HYDROcodone Bitartrate/Apap 5/325 Tablet PO (07:20)
--- NOTE | 2025-08-09 07:30 | RAD_ITS ---
PROCEDURE: SHOULDER MIN 2 VIEWS 08/09/2025 REASON FOR EXAM: INJURY/PAIN Fall. TECHNIQUE: Procedure Code: RADGENI Modality: DX Procedure: SHOULDER MIN 2 VIEWS Laterality: Left COMPARISON: None FINDINGS: Bones: Left humeral neck mildly offset fracture. This maybe a 3 part fracture with extension into the greater tuberosity. Hemarthrosis noted. Scapula scratchnegative. Proximal humerusotherwise negative. Clavicle negative. Joints: Probable hemarthrosis. Soft tissues: Adjacent structures negative. Other: Remainder of the exam negative. RAD/Shoulder min 2 Views IMPRESSION: Humeral neck fracture mildly offset. Can not exclude 3 part fracture with involvement other greater tuberosity. Reading Location: [id number]
--- OUTSIDE RECORDS SUMMARY | 2025-08-09 08:08 | XMS RPT_ITS | CCD ---
Author Organization [facility] Care Team Providers Care Metal Solderer Name Role Phone UNKNOWN, PROVIDER [facility]erring [facility] Unavailable Tj Peguero Attending [facility] [place] Attending Unavailable UNKNOWN, PROVIDER Referring Unavailable [facility] Primary Care Unavailable [facility] Primary Care Provider Alek DE SANTIAGO.PHOTOGRAMMETRIC ENGINEER, Claudia Unavailable [phone] [facility] Provide r DAMIR MCKEE Referring Unavailable [facility] Primary Care Provider [phone] [facility] Primary Care Unavailable JOSELYN GARZA Admitting Unavailable DEKERRY SUSAN Consulting Unavailable DENISE HAIR Attending Unavailable Ron SESAY, Todd Primary Care Provider Unavailab geal Velasquez MD, Todd Attending Provider Unavailable [facility], [facility] Attending Provider Ruchi asadble Andi SESAY, Dr. Reich Attending Provider [phone] Damir Mckee MD Emergency Provider [phone] Todd Velasquez Sr., DO Primary Care Provider Ron SESAY, Todd Primary Care Provider Unavailab gael Velasquez MD, Todd Attending Provider Unavailable [facility] Primary Care Unavail able SOLE JIMENEZ Attending Unavailabl e [facility] Unavail able SOLE JIMENEZ Referring Unavailabl e [facility] Primary Care Unavail able SOLE JIMENEZ Attending UnavailTAO Lynch Admitting Unavailable HAYES NICHOLSON Referring Unavailable [facility] Primary Care Unavail able TASIA HENDERSON Attending Unavailable ITR[facility], AHMED Consulting Unavailable Ron SESAY, Todd Primary Care Provider Unavailab gael Velasquez MD, Todd Attending Provider Unavailable Deperro Sr. , Dr. Brooks Primary Care Provider Ron SESAY, Todd Attending Provider Unavailable KRISTEN WILLAMS Attending Unavailable SOLE JIMENEZ Referring UnavailORVILLE Candelario Primary Care Unavail able Deperro OLS, Todd [...] Care Unavailable Deperro OLS, Todd Attending Unavailable Mckee, Damir Attending Unavailable Deperro Sr., Todd Primary Care Unavailable Deperro Sr., Todd Primary Care Unavailable Deperro OLS, Todd Attending Unavailable Deperro OLS, Todd Attending Unavailable Deperro OLS, Todd Primary Care Unavailable Deperro OLS, Todd Primary Care Unavailable [facility], [facility] Attending Hayes Corbett Attending Unavailable Deperro OLS, Todd Primary Care [...] Unavailable Deperro Sr., Todd Primary Care Unavailable Medications Current Medications [...] in eyes. diazePAM (8 sources) Benzodiazepine Start: End: diazePAM (VALTOCO) 10 mg/spray (0.1 mL) nasal spray Indications: Intractable epilepsy without status epilepticus, unspecified epilepsy type (HCC) Use 1 Butler in the nose as needed for seizures [...] Active docusate sodium 50 mg / sennosides, senior care 8.6 mg oral tablet (2 sources) take [...] Start: 09-18-2023 take 1 capsule by mo ut every twelve hours Ethosuximide 250 mg capsule [...] oral tablet (20 sources) Loop Diuretic Start: 3 End: 5 take 1 tablet by mouth once furosemide (LASIX) 20 mg tablet Take 1 tablet by mouth every Sunday, Sunday, and Sunday. 08/20/2024 Active guaifenesin/dextrome thorphan (ROBITUSSIN-DM ORAL) (20 sources) End: 5 guaifenesin/dextromet horphan
[2025-08-09 08:35] VITALS: BP 143/66; PULSE 71; RESP 18; TEMP 36.9; O2SAT 96
--- NOTE | 2025-08-09 09:17 | CM.ED ---
Social Work Date of referral: 08/09/25 Reason for referral: Advanced Care Directives (ACD's) not on file. Referred by: Social Work Identification Patient provided consent to social work visit. Patient stated her brother is her HPOA. Chemistry Faculty Member asked patient to have her brother bring in the paperwork which patient agreed to do. Mercedes Glasgow, NURSE ORTHOPEDIC, TIRE TESTER
== END 2025-08-09 09:22 | disposition home or self-care (01) ==
PROVIDERS: Emergency Provider Emergency Medicine; PCP Internal Medicine; Visit Provider Emergency Medicine
DX: S42.292A Other displaced fracture of upper end of left humerus, initial encounter for closed fracture (principal); I11.0 Hypertensive heart disease with heart failure; I50.9 Heart failure, unspecified; K21.9 Gastro-esophageal reflux disease without esophagitis; E03.9 Hypothyroidism, unspecified; Z79.890 Hormone replacement therapy; Z79.899 Other long term (current) drug therapy; W18.30XA Fall on same level, unspecified, initial encounter
CPT/HCPCS: 73030; 99284; A4216

== ENCOUNTER → 2025-08-19 05:00 | Outpatient (REF) | payer MEDICARE, OTHER, MEDICAID, SELFPAY ==
--- OUTSIDE RECORDS SUMMARY | 2025-08-19 04:51 | XMS RPT_ITS | CCD ---
Author Organization [facility] Care Team Providers Care Carnival Worker Name Role Phone UNKNOWN, PROVIDER Referring Unavailable [facility] Unavailable Tj Peguero Attending Unavailable [facility] [place] Attending Unavailable UNKNOWN, PROVIDER Referring Unavailable [facility] Primary Care Unavailable [facility] Primary Care Provider [phone] Alek DE SANTIAGO.ICT SALES ASSISTANT, Claudia Unavailable [facility] Provide r DAMIR MCKEE Referring Unavailable [facility] Primary Care Provider [phone] [facility] Primary Care Unavailable FAZAL GARZA Admitting Unavailable DEKERRY SUSAN Consulting Unavailable DENISE HAIR Attending Unavailable Ron SESAY, Otdd Primary Care Provider Unavailab gael Velasquez MD, Todd Attending Provider Unavailable [facility], [facility] Attending Provider Ruchi asadble Andi SESAY, Dr. Reich Attending Provider Dr. Damir Mckee MD Emergency Provider Dr. Todd Velasquez Sr., DO Primary Care Provider Ron SESAY, Todd Primary Care Provider Unavailab gael Velasquez MD, Todd Attending Provider Unavailable [facility] Primary Care Unavail able JAYANT JIMENEZ Attending Unavailabl e [facility] Unavail able JAYANT JIMENEZ Referring Unavailabl e [facility] Primary Care Unavail able JAYANT JIMENEZ Attending UnavailTAO Lynch Admitting Unavailable HAYES NICHOLSON Referring Unavailable [facility] Primary Care Unavail able JUAN JOSE HENDERSON Attending Unavailable ITRAT, AHMED Consulting Unavailable Ron SESAY, Todd Primary Care Provider Unavailab gael Velasquez MD, Todd Attending Provider Unavailable Deperro Sr. , Dr. Brooks Primary Care Provider Ron SESAY, Todd Attending Provider Unavailable LOLITA JAIN Attending Unavailable JAYANT JIMENEZ Referring [place] [facility] Primary Care Unavail able Deperro Sr., Todd Primary Care Unavailable Deperro [...] Unavailable Deperro OLS, Todd Primary Care Unavailable [facility] [place], [facility] Attending Ruchivasandy lable Deperro OLS, Todd Attending Unavailable Deperro OLS, Todd Primary Care Unavailable Deperro OLS, Todd Attending Unavailable Deperro OLS, Todd Primary Care Unavailable Deperro Sr., Todd Primary Care Unavailable Deperro OLS, Todd Attending Unavailable Damir Mckee Attending Unavailable Deperro Sr., Todd Primary Care Unavailable Hayes Nicholson Attending Unavailable Deperro OLS, Todd Primary Care Unavailable Deperro Sr., Todd Referring Unavailable Alexia Osorio Attending Unavailable Deperro Sr., Todd Primary Care [...] Primary Care Unavailable Mckee, Damir Attending Unavailable Medications Current Medications Medication Drug [...] epilepticus, unspecified epilepsy type (HCC) Use 1 Pitcher in the nose as needed for seizures [...] Active docusate sodium 50 mg / sennosides, group home 8.6 mg oral tablet (2 sources) take [...] (20 sources) Angiotensin 2 Receptor Jayna Start: 12-05-2023 take 1 tablet by mouth once daily [...] 0.05 mg/mg topical gel (18 sources) menthol (PodaddiesFREE ZE, MENTHOL,) 5 % topical gel Apply [...] epilepticus, unspecified epilepsy type (HCC) Use 1 Pitcher in the nose as needed for seizures [...] by mouth d aily at bedtime. sennosides, group home 8.6 mg oral tablet (20 sources) End: [...] on above: 1 Enema by RE[place] one time only. valproic acid 250 mg [...] 2023 12:00am take 2 tablets by mo uth every six hours as needed acetaminophen (TYLENOL) [...] by mouth every 6 hours as needed. [id number] 200 actuat albuter ol 0.09 mg/actuat metered [...] mouth. 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] Onset: 06-06-2018 08-07-2018 Chronic Essential hypertension (8 sources) Essential hypertension; 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: [Essential (primary) hypertension] Onset: 01-27-2020 07-28-2022 Chronic Fever of unknown origin (4 sources) Fever; 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: [Fever, unspecified] Onset: 12-03-2024 12-03-2024 Episodic Fracture of upper limb (1 source) Unspecified fracture of upper end of left humerus, initial encounter for closed fracture; 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: [Unspecified fracture of upper end of left humerus, initial encounter for closed fracture] Onset: 08-10-2025 Episodic Gastroduodenal ulcer (except hemorrhage) (3 sources) [...] Long-term current use of drug therapy; 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: [[facility] (current) use of other agents affecting estrogen receptors and estrogen levels] 09-24-2024 Episodic Other endocrine disorders (2 sources) Hyperparathyroidism ; 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: [Hyperparathyroidis m, unspecified] 04-16-2025 Chronic Other gastrointestinal disorders (2 [...] convulsions; 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: [Seizure] Onset: 06-06-2018 08-17-2024 Episodic Fluid and electrolyte disorders (7 sources) Lactic acidosis; 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: [Lactic acidosis] Onset: 02-27-2025 12-11-2024 Episodic Malaise and fatigue (1 source) Weakness; 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: [Weakness] Onset: 02-10-2025 Episodic Other aftercare (20 sources) H/O: high risk medication; 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: [Other mcfp (current) drug therapy] Onset: 08-07-2018 08-07-2018 Episodic Other aftercare (1 source) 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) use of other agents affecting estrogen receptors and estrogen levels; 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: [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) use of other agents affecting estrogen [...] Test Name Value Interpretation Reference Range Facility Orthopedic Visit Reporton Orthopedic Visit Report [facility] [address] [place] [address] OFFICE VISIT Date of Service: 08/13/25 MR#: [id number] Acct: [id number] Name: KATHERYN CHINO Rep #: [id number] : 1945 Provider: ADDIE latham Age/Sex: 80/F Location: [email or web address] Status: Signed Intake Vital Signs 08/09/25 07:10 Height 5 ft 4 in Intake Visit Reasons: LEFT SHOULDER Chief Complaint: ER Follow-Up Accompanied by: Aide Is patient in pain?: Yes Allergies No Known Allergies Allergy (Verified 08/13/25 09:56) Medications ???Medication ???Instructions ???Recorded ???Confirmed ???Type acetaminophen 325 mg tablet 650 mg PO DAILY PAIN 09/18/2307/17 History albuterol sulfate 90 mcg/actuation 2 inh inhalation Q4H PRN shortne ss 09/18/23 08/13/25 History aerosol inhaler of breath or wheezing cholecalciferol (vitamin D3) 50 50 mcg PO DAILY 09/18/23 08/13/25 History mcg (2,000 unit) tablet docusate sodium 100 mg capsule 100 mg PO DAILY PRN constipation 1 11/19/22 08/13/25 History escitalopram oxalate 20 mg tablet 20 mg PO DAILY 09/18/23 08/13/25 History ethosuximide 250 mg capsule 250 mg PO Q12H 09/18/23 08/13/25 H istory furosemide 20 mg tablet 20 mg PO MOWEFR 09/18/23 08/13/25 History levothyroxine 50 mcg tablet 50 mcg PO DAILY 09/18/23 08/13/25 History losartan 25 mg tablet 25 mg PO DAILY 09/18/23 08/13/25 H istory melatonin 3 mg tablet 3 mg PO DAILY 09/18/23 08/13/25 Hi story potassium chloride 10 mEq 10 meq PO DAILY 09/18/23 08/13/25 History tablet,extended release valproic acid 250 mg capsule 500 mg PO Q8H 09/18/23 08/13/25 Hi story ipratropium 0.5 mg-albuterol 3 mg 3 ml inhalation Q6H PRN shortness 08/17/24 08/13/25 History (2.5 mg base)/3 mL nebulization of breath or wheezing soln lacosamide 100 mg tablet 100 mg PO Q12H 12/03/24 08/13/25 H istory calcium carbonate-vitamin D3 1 tab PO DAILY 08/09/25 08/13/25 H istory fluticasone propionate 50 2 spray intranasal DAILY 08/09/25 08/13/25 History mcg/actuation nasal spray,suspension hydrocodone-acetaminophe n 5-325mg 1 tab PO Q6H PRN PRN Pain 3 days 08/09/25 08/13/25 Rx 5mg-325mg #10 TABLETS pantoprazole 20 mg tablet,delayed 20 mg PO DAILY 08/09/25 08/13/25 History release bisacodyl 10 mg rectal suppository 10 mg MO QDAY PRN 08/13/2508/13 History carbamide peroxide 6.5 % ear drops 4 drp otic (ear) QDAY PRN 08/13/25 History (Ear Drops (carbamide peroxide)) carboxymethylcellulose sodium 0.5 1 drp ophthalmic (eye) Q1H PRN 08/13/25 History % eye drops in a dropperette diazepam 10 mg/spray (0.1 mL) mg intranasal PRN 08/13/25 5 History nasal spray (Valtoco) guaifenesin 100 mg/5 mL oral 200 mg PO Q6H PRN 08/13/25 5 History liquid (Guaifed (guaifenesin)) lacosamide 150 mg tablet 150 mg PO QDAY 08/13/25 08/13/25 H istory loratadine 10 mg tablet 10 mg PO QDAY 08/13/25 08/13/25 Hi story magnesium hydroxide 400 mg/5 mL 1 ml PO QDAY PRN 08/13/25 08/13/25 History oral suspension (Milk of Magnesia) menthol 5 % topical gel (Biofreeze ea topical Q12H PRN 08/13/25 History (menthol)) Have you fallen in the past year?: Yes PFSH Medical History Dysphagia, oropharyngeal phase Generalized anxiety [...] with anxiety Epilepsy, unspecified, not intractable, without (more content not included)... Normal [facility] Emergency Department Summary on 08-09-2025 Emergency Department Summary [facility] Medical Records Department [address] [place] [address] Emergency Department Summary 08/09/25 MR#: [id number] Acct: [id number] Name: KATHERYN CHINO Rep #: [id number] : 1945 80 From: Damir Mckee MD PCP: Dr. Todd Velasquez Sr., DO Status:REG ER Location: ED HPI History of Present Illness Chief Complaint: Upper Extremity Injury Detail of Chief Complaint: Reported fracture left shoulder Informant: patient and EMS Occured/Mechanism Mechanism/Context: Yes injury, Yes blunt trauma, Yes fall and Yes same level fall Comment: Patient fell yesterday. Had x-rays that were interpreted today as fracture. Onset/Context/Timing Onset: Yesterday Context: Sudden Onset Timing: Continuous Quality of Pain: Dull and Aching Location: Left shoulder Current Severity: Severe Maximum Severity: Severe Worsened by: Any type of movement passive or active Relieved by: Nothing Associated Symptoms Associated Symptoms: Positive for Loss of Funtion; Negative for Parasthesia or Weakness Narrative Narrative: Patient is a 80-year-old cfhtz-bmmk-iyfcicpu woman. She presents by ambulance from nursing facility. Patient reportedly fell yesterday. She had an x-ray which revealed a shoulder fracture. She is right-hand dominant. She injured her left shoulder. She is reluctant to move it. She denies paresthesia, anesthesia buttocks. She denies chest pain or shortness of breath. She denies neck pain. There is no history of head trauma. Review of her medication indicates she is on no anticoagulant. Prior similar symptoms: No Recent Illness/Hospitalization: No [facility] Medical History Dysphagia, oropharyngeal phase Generalized anxiety [...] mg tablet 650 mg PO DAILY PAIN 09/18/2307/16 History albuterol sulfate 90 mcg/actuation 2 inh inhalation Q4H PRN shortne ss 09/18/23 07/28/25 History aerosol inhaler of breath or wheezing cholecalciferol (vitamin D3) 50 50 mcg PO DAILY 09/18/23 08/08/25 History mcg (2,000 unit) tablet docusate sodium 100 mg capsule 100 mg PO DAILY PRN constipation 1 11/19/22 08/08/25 History escitalopram oxalate 20 mg tablet 20 mg PO DAILY 09/18/23 08/08/25 History ethosuximide 250 mg capsule 250 mg PO Q12H 09/18/23 08/08/25 H istory furosemide 20 mg tablet 20 mg PO MOWEFR 09/18/23 07/22/25 History levothyroxine 50 mcg tablet 50 mcg PO DAILY 09/18/23 08/08/25 History losartan 25 mg tablet 25 mg PO DAILY 09/18/23 08/08/25 H istory melatonin 3 mg tablet 3 mg PO DAILY 09/18/23 08/08/25 Hi story potassium chloride 10 mEq 10 meq PO DAILY 09/18/23 Unknown H istory tablet,extended release valproic acid 250 mg capsule 500 mg PO Q8H 09/18/23 08/08/25 Hi story ipratropium 0.5 mg-albuterol 3 mg 3 ml inhalation Q6H PRN shortness 08/17/24 Unknown History (2.5 mg base)/3 mL nebulization of breath or wheezing soln lacosamide 100 mg tablet 100 mg PO Q12H 12/03/24 08/08/25 H istory lacosamide 50 mg tablet 50 mg PO QHS 12/03/24 08/08/25 His tory calcium carbonate-vitamin D3 1 tab PO DAILY 08/09/25 08/08/25 H istory fluticasone propionate 50 2 spray intranasal DAILY 08/09/25 07/29/25 History mcg/actuation nasal spray,suspension hydrocodone-acetaminophe n 5-325mg 1 tab PO Q (more content not included)... Normal [facility] Shoulder min 2 Viewson 08-09 Shoulder min 2 Views [facility] Imaging Services [address] [place], [place] [id number] Shoulder min 2 Views MR#: [id number] Acct: [id number] Name: KATHERYN CHINO Rep #: [id number] : 1945 F 80 From: Rudy Friend MD PCP: Dr. Todd Velasquez Sr., DO Status: REG ER Study: Shoulder min 2 Views Date of Exam: 08/09/25 Exam# [id number] Ordering Dr: Damir Mckee MD PROCEDURE: SHOULDER MIN 2 VIEWS 08/09/2025 REASON FOR EXAM: INJURY/PAIN Fall. TECHNIQUE: Procedure Code: RADSH Modality: DX Procedure: SHOULDER MIN 2 VIEWS Laterality: Left COMPARISON: None FINDINGS: Bones: Left humeral neck mildly offset fracture. This maybe a 3 part fracture with extension into the greater tuberosity. Hemarthrosis noted. Scapula scratchnegative. Proximal humerusotherwise negative. Clavicle negative. Joints: Probable hemarthrosis. Soft tissues: Adjacent structures negative. Other: Remainder of the exam negative. RAD/Shoulder min 2 Views IMPRESSION: Humeral neck fracture mildly offset. Can not exclude 3 part fracture with involvement other greater tuberosity. Reading Location: [id number] CC: Dr. Todd Velasquez Sr., DO; Dr. Damir Mckee MD Computer Discovery Teacher: Signed Normal [facility] Thyroid Stim Hormone (TSH)on 06-17-2025 TSH 2.770 uIU/mL Normal 0.300-4.20 0 [facility] Comment on above: Order Comment: 211.2 Performed By: #### L 3410.9998, L500.4050, L100.0500, L501.8100, L501.9520 #### [facility] [place], [address] L3410.9992on 06-05-2025 [facility] Misc. COMMENT Normal . [facility] Comment on above: Order Comment: 211.2 Result Comment: Test Ordered: [id number] Lacosamide Test(s) 083650-Twgzhlzxmb was developed and its performance characteristics determined by [facility]. It has not been cleared or approved by the Food and Drug Administration. Lacosamide 7.9 ug/mL BN Reference Range: 5.0-10.0 Limit of Detection 0.5 Mean plasma concentrations following maintenance dose 200 mg/day 4.99 +/- 2.51 ug/mL 400 mg/day 9.35 +/- 4.22 ug/mL 600 mg/day 12.46 +/- 5.60 ug/mL Performed at: - [facility] [id number] Pearl Fisherman: Nahed Naidu MD, Phone: [phone] Performed at: [facility] [id number] [place] Fisherman: Haris Peraza PhD, Phone: [phone] Performed By: #### L 500.2500, L100.0500 #### [facility] [address] [place], [address] Thyroid Stim Hormone (TSH)on 06-01-2025 TSH 2.850 uIU/mL Normal 0.300-4.20 0 [facility] Comment on above: Order Comment: 211.2 Performed By: #### L 500.2500, L100.0500 #### [facility] [address] [place], [address] Valproic Acid (Depakene) Lev maribell 06-01-2025 VALPROIC ACID 91 ug/mL Normal 50-100 [facility] Comment on above: Order Comment: 211.2 Result Comment: Valp roic Acid concentrations >100 ug/mL are potentially toxic. Performed By: #### L 500.2500, L100.0500 #### [facility] [address] [place], [address] CBC-Complete Blood Cnt No Di ffon 05-27-2025 Erythrocyte distribution width (RBC) [Ratio] 14.6 % Normal 11.6-14.6 [facility] Comment on above: Order Comment: 211.2 Performed By: #### L 500.4050, L100.0500 ####[facility] [address] [place], [address] Hematocrit (Bld) [Volume fraction] 31.2 % Low 37-47 [facility] Comment on above: Order Comment: 211.2 Performed By: #### L 500.4050, L100.0500 ####[facility] [address] [place], [address] Hemoglobin (Bld) [Mass/Vol] 9.8 g/dL Low 12.0-15.0 [facility] Comment on above: Order Comment: 211.2 Performed By: #### L 500.4050, L100.0500 ####[facility] [address] [place], [address] MCH (RBC) [Entitic mass] 27.7 pg Normal 27.0-32.0 [facility] Comment on above: Order Comment: 211.2 Performed By: #### L 500.4050, L100.0500 ####[facility] [address] [place], [address] MCHC (RBC) [Mass/Vol] 31.4 g/dL Low 32-36 [facility] Comment on above: Order Comment: 211.2 Performed By: #### L 500.4050, L100.0500 ####[facility] [address] [place], [address] MCV (RBC) [Entitic vol] 88.1 fL Normal 81-99 [facility] Comment on above: Order Comment: 211.2 Performed By: #### L 500.4050, L100.0500 ####[facility] [address] [place], [address] Platelet mean volume (Bld) [Entitic vol] 12.2 fL High 6.2-12.0 [facility] Comment on above: Order Comment: 211.2 Performed By: #### L 500.4050, L100.0500 ####[facility] [address] [place], [address] Platelets (Bld) [#/Vol] 163 10*3/uL Normal 150-450 [facility] Comment on above: Order Comment: 211.2 Performed By: #### L 500.4050, L100.0500 ####[facility] [address] [place], [address] RBC (Bld) [#/Vol] 3.54 10*6/uL Low 4.2-5.4 [facility] Comment on above: Order Comment: 211.2 Performed By: #### L 500.4050, L100.0500 ####[facility] [address] [place], [address] RDW SD 47.3 fl High 35.1-43.9 [facility] Comment on above: Order Comment: 211.2 Performed By: #### L 500.4050, L100.0500 ####[facility] [address] [place], [address] WBC (Bld) [#/Vol] 7.6 10*3/uL Normal 4.4-11.0 [facility] Comment on above: Order Comment: 211.2 Performed By: #### L 500.4050, L100.0500 ####[facility] [address] [place], [address] Comprehensive Metabolic Prof [facility] 05-27-2025 Albumin [Mass/Vol] 3.7 g/dL Normal 3.4-4.8 [facility] Comment on above: Order Comment: 211.2 Performed By: #### L 500.4050, L100.0500 ####[facility] [address] [place], [address] Albumin/Globulin [Mass ratio] 1.2 {ratio} Normal 0.9-2.4 [facility] Comment on above: Order Comment: 211.2 Performed By: #### L 500.4050, L100.0500 ####[facility] [address] [place], [address] ALK PHOS 84 U/L Normal 35-104 [facility] Comment on above: Order Comment: 211.2 Performed By: #### L 500.4050, L100.0500 ####[facility] [address] [place], [address] ALT [Catalytic activity/Vol] 9 U/L Normal <=34 [facility] Comment on above: Order Comment: 211.2 Performed By: #### L 500.4050, L100.0500 ####[facility] [address] [place], [address] AST [Catalytic activity/Vol] 21 U/L Normal <=31 [facility] Comment on above: Order Comment: 211.2 Performed By: #### L 500.4050, L100.0500 ####[facility] [address] [place], [address] Bilirubin [Mass/Vol] 0.18 mg/dL Normal 0.00-1.30 [facility] Comment on above: Order Comment: 211.2 Performed By: #### L 500.4050, L100.0500 ####[facility] [address] [place], [address] BUN/CRE 23.0 RATIO High 10-20 [facility] Comment on above: Order Comment: 211.2 Performed By: #### L 500.4050, L100.0500 ####[facility] [address] [place], [address] Calcium [Mass/Vol] 9.6 mg/dL Normal 7.6-11.0 [facility] Comment on above: Order Comment: 211.2 Performed By: #### L 500.4050, L100.0500 ####[facility] [address] [place], [address] Chloride [Moles/Vol] 105 mmol/L Normal 98-108 [facility] Comment on above: Order Comment: 211.2 Performed By: #### L 500.4050, L100.0500 ####[facility] [address] [place], [address] CO2 [Moles/Vol] 23.5 mmol/L Normal 21.0-32.0 [facility] Comment on above: Order Comment: 211.2 Performed By: #### L 500.4050, L100.0500 ####[facility] [address] [place], [address] Creatinine [Mass/Vol] 0.78 mg/dL Normal 0.70-1.20 [facility] Comment on above: Order Comment: 211.2 Performed By: #### L 500.4050, L100.0500 ####[facility] [address] [place], [address] GAP 11 Normal 5-15 [facility] Comment on above: Order Comment: 211.2 Performed By: #### L 500.4050, L100.0500 ####[facility] [address] [place], [address] GFR/1.73 sq M.predicted among non-blacks MDRD (S/P/Bld) [Vol rate/Area] 78 mL/min/{1.73_m2} Normal >60 [facility] Comment on above: Order Comment: 211.2 Result Comment: mL/m in/1.73m2 CKD-EPI Creatinine Equation (2020) Performed By: #### L 500.4050, L100.0500 ####[facility] [address] [place], [address] Globulin (S) [Mass/Vol] 3.2 g/dL Normal 2.2-4.2 [facility] Comment on above: Order Comment: 211.2 Performed By: #### L 500.4050, L100.0500 ####[facility] [address] [place], [address] Glucose [Mass/Vol] 88 mg/dL Normal 70-99 [facility] Comment on above: Order Comment: 211.2 Performed By: #### L 500.4050, L100.0500 ####[facility] [address] [place], [address] Potassium [Moles/Vol] 4.7 mmol/L Normal 3.3-5.1 [facility] Comment on above: Order Comment: 211.2 Performed By: #### L 500.4050, L100.0500 ####[facility] [address] [place], [address] Sodium [Moles/Vol] 139 mmol/L Normal 133-145 [facility] Comment on above: Order Comment: 211.2 Performed By: #### L 500.4050, L100.0500 ####[facility] [address] [place], [address] T PROT 6.9 g/dL Normal 5.9-8.4 [facility] Comment on above: Order Comment: 211.2 Performed By: #### L 500.4050, L100.0500 ####[facility] [address] [place], [address] Urea nitrogen [Mass/Vol] 18 mg/dL Normal 4-19 [facility] Comment on above: Order Comment: 211.2 Performed By: #### L 500.4050, L100.0500 ####[facility] [address] [place], [address] CNPAni 04-16-2025 [facility] KATHERYN CHINO ([id number]) 1945 F Date Time Provider Department 04/16/25 LOLITA JAIN [facility] During your visit today, we recorded the following information about you: Lolita Jian PA-C 04/16/2025 9:36 AM Signed Received outside medical records from [facility] dated 04/06/25 PTH level is 76 [...] don't use in patients who have had CO/Stroke in the past year. She will review with Katheryn and ERNESTINE and let us know preference moving forward regarding treatment. Thanks KG Please fax this phone encounter to [phone] for their records Shavonne Sinclair RN 04/16/2025 10:19 AM Signed Telephone encounter faxed. Shavonne Sinclair RN Allergies As of Date: 04/16/2025 (No Known Allergies) Date Reviewed: 02/25/2025 Reviewed by: Jacki Sumner MA - Fully Assessed Primary Visit Diagnosis:Hyperparathyro id (HCC) [E21.3] Other Visit Diagnosis:Elevated parathyroid hormone [R79.89] Order(s):CONSULT TO ENDOCRINOLOGY [9007] Order #: [id number]: 1 FUTURE Prescriptions as of 04/16/2025 - [...] mg/spray (0.1 mL) nasal spray Use 1 Pitcher in the nose as needed for seizures [...] Status:Closed by SHAVONNE SINCLAIR on 04/16/25 Normal [facility] PTHINon 04-06-2025 PTH 76 pg/mL High [facility] Comment on above: Order Comment: 211.2 Performed By: #### L 3410.9998, L500.4050, L100.0500, L501.8100, L501.9520 #### [facility] [address] [place], [address] L3410.9992on 03-14-2025 [facility] COMMENT Normal . [facility] Comment on above: Order Comment: 211.2 Result Comment: Test Ordered: [id number] Lacosamide Test(s) 820849-Dxnxbtonwz was developed and its performance characteristics determined by [facility]. It has not been cleared or approved by the Food and Drug Administration. Lacosamide 8.0 ug/mL Reference Range: 5.0-10.0 Limit of Detection 0.5 Mean plasma concentrations following maintenance dose 200 mg/day 4.99 +/- 2.51 ug/mL 400 mg/day 9.35 +/- 4.22 ug/mL 600 mg/day 12.46 +/- 5.60 ug/mL Performed at: - [facility] [id number] Pearl Fisherman: Nahed Naidu MD, Phone: [phone] Performed at: [address] [id number] Pearl Fisherman: Haris Peraza PhD, Phone: [phone] Performed By: #### L 3410.9998, L500.4050, L100.0500, L501.8100, L501.9520 #### [facility] [address] [place], [address] Serum or plasma valproate me asurement (mass/volume)Ordered By: Todd Velasquez on 03-10-2025 Valproate [Mass/Vol] 91 ug/mL 50-100 [facility] Comment on above: Valproic Acid concen trations >100 ug/mL are potentially toxic. Valproic Acid (Depakene) Lev maribell 03-10-2025 VALPROIC ACID 91 ug/mL Normal 50-100 [facility] Comment on above: Order Comment: 211.2 Result Comment: Valp roic Acid concentrations >100 ug/mL are potentially toxic. Performed By: #### L 3410.9998, L500.4050, L100.0500, L501.8100, L501.9520 #### [facility] [address] [place], [address] Anion gap in Serum or Plasma Ordered By: Todd Velasquez on 03-04-2025 Anion gap [Moles/Vol] 9 mmol/L 5-15 [facility] BUN/creatinine ratioOrdered By: Todd Velasquez on 03-04-2025 Urea nitrogen/Creatinine [Mass ratio] 22.8 mg/mg High 10-20 [facility] Bilirubin, totalOrdered By: Todd Velasquez on 03-04-2025 Bilirubin [Mass/Vol] 0.21 mg/dL 0.00-1.30 [facility] CBC-Complete Blood Cnt No Di ffon 03-04-2025 Erythrocyte distribution width (RBC) [Ratio] 14.5 % Normal 11.6-14.6 [facility] Comment on above: Order Comment: 211.2 Performed By: #### L 3410.9998, L500.4050, L100.0500, L501.8100, L501.9520 #### [facility] [address] [place], [address] Hematocrit (Bld) [Volume fraction] 30.2 % Low 37-47 [facility] Comment on above: Order Comment: 211.2 Performed By: #### L 3410.9998, L500.4050, L100.0500, L501.8100, L501.9520 #### [facility] [address] [place], [address] Hemoglobin (Bld) [Mass/Vol] 9.6 g/dL Low 12.0-15.0 [facility] Comment on above: Order Comment: 211.2 Performed By: #### L 3410.9998, L500.4050, L100.0500, L501.8100, L501.9520 #### [facility] [address] [place], [address] MCH (RBC) [Entitic mass] 28.2 pg Normal 27.0-32.0 [facility] Comment on above: Order Comment: 211.2 Performed By: #### L 3410.9998, L500.4050, L100.0500, L501.8100, L501.9520 #### [facility] [address] [place], [address] MCHC (RBC) [Mass/Vol] 31.8 g/dL Low 32-36 [facility] Comment on above: Order Comment: 211.2 Performed By: #### L 3410.9998, L500.4050, L100.0500, L501.8100, L501.9520 #### [facility] [address] [place], [address] MCV (RBC) [Entitic vol] 88.6 fL Normal 81-99 [facility] Comment on above: Order Comment: 211.2 Performed By: #### L 3410.9998, L500.4050, L100.0500, L501.8100, L501.9520 #### [facility] [address] [place], [address] Platelet mean volume (Bld) [Entitic vol] 12.1 fL High 6.2-12.0 [facility] Comment on above: Order Comment: 211.2 Performed By: #### L 3410.9998, L500.4050, L100.0500, L501.8100, L501.9520 #### [facility] [address] [place], [address] Platelets (Bld) [#/Vol] 186 10*3/uL Normal 150-450 [facility] Comment on above: Order Comment: 211.2 Performed By: #### L 3410.9998, L500.4050, L100.0500, L501.8100, L501.9520 #### [facility] [address] [place], [address] RBC (Bld) [#/Vol] 3.41 10*6/uL Low 4.2-5.4 [facility] Comment on above: Order Comment: 211.2 Performed By: #### L 3410.9998, L500.4050, L100.0500, L501.8100, L501.9520 #### [facility] [address] [place], [address] RDW SD 46.7 fl High 35.1-43.9 [facility] Comment on above: Order Comment: 211.2 Performed By: #### L 3410.9998, L500.4050, L100.0500, L501.8100, L501.9520 #### [facility] [address] [place], [address] WBC (Bld) [#/Vol] 7.4 10*3/uL Normal 4.4-11.0 [facility] Comment on above: Order Comment: 211.2 Performed By: #### L 3410.9998, L500.4050, L100.0500, L501.8100, L501.9520 #### [facility] [place], [address] [facility] CNPN Telephone (RHWSTR) -------- KATHERYN CHINO ([id number]) 1945 F Date Time Provider Department 03/04/25 LOLITA JAIN WSTR During your visit today, we recorded the following information about you: Lolita Jain PA-C 03/04/2025 4:50 PM Signed Labs dated 02/27/25 from [facility] CTX 197 SPEP - normal limits, no Mspike More labs to come Lolita Jain PA-C 03/05/2025 5:00 PM Signed Addtional labs: S Protein electrophoresis normal, no MSpike Ionized calcium 1.27 PTH 68 (high, ref 11-61) Phos 3.7 Mg 2.2 BMP Renal function Cr0.72 BUN 22 (H) Calcium 9.5 Vitamain D 46.9 Lolita Jain PA-C 03/05/2025 5:02 PM Signed Please call residential. She has elevated PTH. We should hold off on the Forteo until I can review with my colleague. Will reach out next week with additional recommendations. ANABELL Velazquez Amy M, MA 03/06/2025 9:08 AM Signed I called and spoke with Katia at [facility]. Message from Lolita Jain PA-C given and Katia verbalized understanding. Mary Ronquillo LPN 03/17/2025 2:25 PM Signed [facility] calling to see if there has been any updates regarding the Forteo or if there are any alternatives we should consider due to cost? Appears that [facility] did get precert approved [...] called and spoke with YVONNE Amaya at [facility]. Message given to her from provider and [...] message and orders to staff nurse at [facility]. Orders read back. MEGA Mast Danelle, RN 04/15/2025 10:25 AM Signed PTH was drawn 04/06/25. care home staff to be faxing results to office. Shavonne Sinclair RN Allergies As of Date: 03/04/2025 (No Known Allergies) Date Reviewed: 02/25/2025 Reviewed by: Jacki Sumner MA - Fully Assessed Reason for Visit: Received Outside Medical Records [3576] Primary Visit Diagnosis:Osteoporosis without current pathological fracture, unspecified osteoporosis type [M81.0] Other Visit Diagnosis:Elevated parathyroid hormone [R79.89] Order(s):PTH INTACT [SQPTHI] Order #: [id number] FUTURE Prescriptions as of 04/15/2025 - insulin [...] mg/spray (0.1 mL) nasal spray Use 1 Pitcher in the nose as needed for seizures [...] - fu (more content not included)... Normal [facility] Carbon dioxide, total [Moles /volume] in Central venous bloodOrdered By: Todd Velasquez on 03-04-2025 CO2 [Moles/Vol] 24.0 mmol/L 21.0-32.0 [facility] Chloride assayOrdered By: Evans Deperrsharlene on 03-04-2025 Chloride [Moles/Vol] 107 mmol/L 98-108 [facility] Comprehensive Metabolic Prof ilon 03-04-2025 Albumin [Mass/Vol] 3.7 g/dL Normal 3.4-4.8 [facility] Comment on above: Order Comment: 211.2 Performed By: #### L 3410.9998, L500.4050, L100.0500, L501.8100, L501.9520 #### [facility] [address] [place], [address] Albumin/Globulin [Mass ratio] 1.2 {ratio} Normal 0.9-2.4 [facility] Comment on above: Order Comment: 211.2 Performed By: #### L 3410.9998, L500.4050, L100.0500, L501.8100, L501.9520 #### [facility] [address] [place], [address] ALK PHOS 84 U/L Normal 35-104 [facility] Comment on above: Order Comment: 211.2 Performed By: #### L 3410.9998, L500.4050, L100.0500, L501.8100, L501.9520 #### [facility] [address] [place], [address] ALT [Catalytic activity/Vol] 6 U/L Normal <=34 [facility] Comment on above: Order Comment: 211.2 Performed By: #### L 3410.9998, L500.4050, L100.0500, L501.8100, L501.9520 #### [facility] [address] [place], [address] AST [Catalytic activity/Vol] 22 U/L Normal <=31 [facility] Comment on above: Order Comment: 211.2 Performed By: #### L 3410.9998, L500.4050, L100.0500, L501.8100, L501.9520 #### [facility] [address] [place], [address] Bilirubin [Mass/Vol] 0.21 mg/dL Normal 0.00-1.30 [facility] Comment on above: Order Comment: 211.2 Performed By: #### L 3410.9998, L500.4050, L100.0500, L501.8100, L501.9520 #### [facility] [address] [place], [address] BUN/CRE 22.8 RATIO High 10-20 [facility] Comment on above: Order Comment: 211.2 Performed By: #### L 3410.9998, L500.4050, L100.0500, L501.8100, L501.9520 #### [facility] [address] [place], [address] Calcium [Mass/Vol] 9.1 mg/dL Normal 7.6-11.0 [facility] Comment on above: Order Comment: 211.2 Performed By: #### L 3410.9998, L500.4050, L100.0500, L501.8100, L501.9520 #### [facility] [address] [place], [address] Chloride [Moles/Vol] 107 mmol/L Normal 98-108 [facility] Comment on above: Order Comment: 211.2 Performed By: #### L 3410.9998, L500.4050, L100.0500, L501.8100, L501.9520 #### [facility] [address] [place], [address] CO2 [Moles/Vol] 24.0 mmol/L Normal 21.0-32.0 [facility] Comment on above: Order Comment: 211.2 Performed By: #### L 3410.9998, L500.4050, L100.0500, L501.8100, L501.9520 #### [facility] [address] [place], [address] Creatinine [Mass/Vol] 0.74 mg/dL Normal 0.70-1.20 [facility] Comment on above: Order Comment: 211.2 Performed By: #### L 3410.9998, L500.4050, L100.0500, L501.8100, L501.9520 #### [facility] [address] [place], [address] GAP 9 Normal 5-15 [facility] Comment on above: Order Comment: 211.2 Performed By: #### L 3410.9998, L500.4050, L100.0500, L501.8100, L501.9520 #### [facility] [address] [place], [address] GFR/1.73 sq M.predicted among non-blacks MDRD (S/P/Bld) [Vol rate/Area] 83 mL/min/{1.73_m2} Normal >60 [facility] Comment on above: Order Comment: 211.2 Result Comment: mL/m in/1.73m2 CKD-EPI Creatinine Equation (2020) Performed By: #### L 3410.9998, L500.4050, L100.0500, L501.8100, L501.9520 #### [facility] [address] [place], [address] Globulin (S) [Mass/Vol] 3.1 g/dL Normal 2.2-4.2 [facility] Comment on above: Order Comment: 211.2 Performed By: #### L 3410.9998, L500.4050, L100.0500, L501.8100, L501.9520 #### [facility] [address] [place], [address] Glucose [Mass/Vol] 93 mg/dL Normal 70-99 [facility] Comment on above: Order Comment: 211.2 Performed By: #### L 3410.9998, L500.4050, L100.0500, L501.8100, L501.9520 #### [facility] [address] [place], [address] Potassium [Moles/Vol] 4.9 mmol/L Normal 3.3-5.1 [facility] Comment on above: Order Comment: 211.2 Performed By: #### L 3410.9998, L500.4050, L100.0500, L501.8100, L501.9520 #### [facility] [address] [place], [address] Sodium [Moles/Vol] 140 mmol/L Normal 133-145 [facility] Comment on above: Order Comment: 211.2 Performed By: #### L 3410.9998, L500.4050, L100.0500, L501.8100, L501.9520 #### [facility] [address] [place], [address] T PROT 6.7 g/dL Normal 5.9-8.4 [facility] Comment on above: Order Comment: 211.2 Performed By: #### L 3410.9998, L500.4050, L100.0500, L501.8100, L501.9520 #### [facility] [address] [place], [address] Urea nitrogen [Mass/Vol] 17 mg/dL Normal 4-19 [facility] Comment on above: Order Comment: 211.2 Performed By: #### L 3410.9998, L500.4050, L100.0500, L501.8100, L501.9520 #### [facility] [address] [place], [address] Erythrocyte distribution wid th ratioOrdered By: Todd Velasquez on 03-04-2025 Erythrocyte distribution width (RBC) [Ratio] 14.5 % 11.6-14.6 [facility] Erythrocyte distribution wid th standard deviationOrdered By: Todd Velasquez on 03-04-2025 Erythrocyte distribution width (RBC) [Ratio] 46.7 fl High 35.1-43.9 [facility] Glomerular filtration rate ( GFR) estimation/1.73 sq m using serum, plasma, or whole bOrdered By: Todd Velasquez on 03-04-2025 GFR/1.73 sq M.predicted among non-blacks MDRD (S/P/Bld) [Vol rate/Area] 83 mL/min/{1.73_m2} >60 [facility] Comment on above: mL/min/1.73m2 CKD-EP I Creatinine Equation (2020) Hematocrit Auto (Bld) [Volum e fraction]Ordered By: Todd Velasquez on 03-04-2025 Hematocrit (Bld) [Volume fraction] 30.2 % Low 37-47 [facility] Hemoglobin measurementOrdere d By: Todd Velasquez on 03-04-2025 Hemoglobin (Bld) [Mass/Vol] 9.6 g/dL Low 12.0-15.0 [facility] - Chemistry and C hemistry - challengeOrdered By: Todd Velasquez on 03-04-2025 AST [Catalytic activity/Vol] 22 U/L <32 [facility] MCV (mean corpuscular volume ) determinationOrdered By: Todd Velasquez on 03-04-2025 MCV (RBC) [Entitic vol] 88.6 fL 81-99 [facility] Mean corpuscular hemoglobin (MCH) determinationOrdered By: Todd Velasquez on 03-04-2025 MCH (RBC) [Entitic mass] 28.2 pg 27.0-32.0 [facility] Mean corpuscular hemoglobin concentration (MCHC) determinationOrdered By: Todd Velasquez on 03-04-2025 MCHC (RBC) [Mass/Vol] 31.8 g/dL Low 32-36 [facility] Mean platelet volume determi nationOrdered By: Todd Velasquez on 03-04-2025 Platelet mean volume (Bld) [Entitic vol] 12.1 fL High 6.2-12.0 [facility] Platelet countOrdered By: Whitley on 03-04-2025 Platelets (Bld) [#/Vol] 186 10*3/uL 150-450 [facility] Potassium measurement (mass/ volume)Ordered By: Todd Velasquez on 03-04-2025 Potassium (Unsp spec) [Mass/Vol] 4.9 mmol/L 3.3-5.1 [facility] RBC Auto (Bld) [#/Vol]Ordere d By: Todd Velasquez on 03-04-2025 RBC (Bld) [#/Vol] 3.41 10*6/uL Low 4.2-5.4 [facility] Serum creatinine measurement (mass/volume)Ordered By: Todd Velasquez on 03-04-2025 Creatinine [Mass/Vol] 0.74 mg/dL 0.70-1.20 [facility] Serum globulin measurementOr dered By: Todd Velasquez on 03-04-2025 Globulin (S) [Mass/Vol] 3.1 g/dL 2.2-4.2 [facility] Serum glucose measurement (m ass/volume)Ordered By: Todd Velasquez on 03-04-2025 Glucose [Mass/Vol] 93 mg/dL 70-99 [facility] Serum or plasma alanine ignacio otransferase (ALT) measurementOrdered By: Todd Velasquez on 03-04-2025 ALT [Catalytic activity/Vol] 6 U/L <35 [facility] Serum or plasma albumin jacob urement (mass/volume)Ordered By: Todd Velasquez on 03-04-2025 Albumin [Mass/Vol] 3.7 g/dL 3.4-4.8 [facility] Serum or plasma albumin/glob ulin mass ratioOrdered By: Todd Velasquez on 03-04-2025 Albumin/Globulin [Mass ratio] 1.2 {ratio} 0.9-2.4 [facility] Serum or plasma alkaline phillip sphatase measurementOrdered By: Todd Velasquez on 03-04-2025 ALP [Catalytic activity/Vol] 84 U/L 35-104 [facility] Serum or plasma calcium jacob urement (mass/volume)Ordered By: Todd Velasquez on 03-04-2025 Calcium [Mass/Vol] 9.1 mg/dL 7.6-11.0 [facility] Serum or plasma urea nitroge n measurement (mass/volume)Ordered By: Todd Velasquez on 03-04-2025 Urea nitrogen [Mass/Vol] 17 mg/dL 4-19 [facility] Sodium levelOrdered By: Todd Velasquez on 03-04-2025 Sodium [Moles/Vol] 140 mmol/L 133-145 [facility] Total proteinOrdered By: Ignacia Velasquez on 03-04-2025 Protein [Mass/Vol] 6.7 g/dL 5.9-8.4 [facility] White blood cell (WBC) count Ordered By: Todd Velasquez on 03-04-2025 WBC (Bld) [#/Vol] 7.4 10*3/uL 4.4-11.0 [facility] L3410.9992on 03-02-2025 [facility]. COMMENT Normal . [facility] Comment on above: Order Comment: 211.2 Result Comment: Test Ordered: [id number] C-Telopeptide, Serum C-Telopeptide, Serum 197 pg/mL ES Reference Range: . Reference Range: Premenopausal Women: 34 - 635 Postmenopausal Women: 34 - 1037 Performed at: [employer] [address] [place] [id number] [place] Fisherman: Felix Bonilla MD, Phone: [phone] Performed at: - [facility] [address] [id number] [place] Fisherman: Haris Peraza PhD, Phone: [phone] Performed By: #### L 500.6401, L100.7156 #### [facility] [address] [place], [address] Protein Electroph, Son 03-02 Albumin [Mass/Vol] 3.2 g/dL Normal 2.9-4.4 [facility] Comment on above: Order Comment: 211.2 Performed By: #### L 500.2500, L100.0500 #### [facility] [address] [place], [address] Albumin/Globulin [Mass ratio] 0.9 {ratio} Normal 0.7-1.7 [facility] Comment on above: Order Comment: 211.2 Performed By: #### L 500.2500, L100.0500 #### [facility] [address] [place], [address] ALPHA-1 GLOBUL 0.2 g/dL Normal 0.0-0.4 [facility] Comment on above: Order Comment: 211.2 Performed By: #### L 500.2500, L100.0500 #### [facility] [address] [place], [address] ALPHA-2 GLOBUL 0.8 g/dL Normal 0.4-1.0 [facility] Comment on above: Order Comment: 211.2 Performed By: #### L 500.2500, L100.0500 #### [facility] [address] [place], [address] BETA GLOBULIN 1.2 g/dL Normal 0.7-1.3 [facility] Comment on above: Order Comment: 211.2 Performed By: #### L 500.2500, L100.0500 #### [facility] [address] [place], [address] GAMMA GLOBULIN 1.3 g/dL Normal 0.4-1.8 [facility] Comment on above: Order Comment: 211.2 Performed By: #### L 500.2500, L100.0500 #### [facility] [address] [place], [address] Globulin (S) [Mass/Vol] 3.5 g/dL Normal 2.2-3.9 [facility] Comment on above: Order Comment: 211.2 Performed By: #### L 500.2500, L100.0500 #### [facility] [address] [place], [address] INTERPRETATION Comment Normal . [facility] Comment on above: Order Comment: 211.2 Result Comment: Prot ein electrophoresis scan will follow via computer, mail, or broomcorn thresher delivery. Performed By: #### L 500.2500, L100.0500 #### [facility] [address] [place], [address] M-SPIKE Not Observed Normal Not Observed [facility] Comment on above: Order Comment: 211.2 Performed By: #### L 500.2500, L100.0500 #### [facility] [address] [place], [address] NOTE: Comment Normal . [facility] Comment on above: Order Comment: 211.2 Result Comment: The SPE pattern appears unremarkable. Evidence of monoclonal protein is not apparent. Performed at: [address] [id number] Pearl Fisherman: Haris Peraza PhD, Phone: [phone] Performed By: #### L 500.2500, L100.0500 #### [facility] [address] [place], [address] Protein [Mass/Vol] 6.7 g/dL Normal 6.0-8.5 [facility] Comment on above: Order Comment: 211.2 Performed By: #### L 500.2500, L100.0500 #### [facility] [address] [place], [address] Albumin Elph [Mass/Vol]Order ed By: Todd Velasquez on 02-27-2025 Albumin [Mass/Vol] 3.2 g/dL 2.9-4.4 [facility] Anion gap in Serum or Plasma Ordered By: Todd Velasquez on 02-27-2025 Anion gap [Moles/Vol] 10 mmol/L 5-15 [facility] BUN/creatinine ratioOrdered By: Todd Velasquez on 02-27-2025 Urea nitrogen/Creatinine [Mass ratio] 30.7 mg/mg High 10-20 [facility] Basic Metabolic Profile (BMP )on 02-27-2025 BUN/CRE 30.7 RATIO High - [facility] Comment on above: Order Comment: 211.2 Performed By: #### L 500.2500, L100.0500 #### [facility] [address] [place], [address] Calcium [Mass/Vol] 9.5 mg/dL Normal 7.6-11.0 [facility] Comment on above: Order Comment: 211.2 Performed By: #### L 500.2500, L100.0500 #### [facility] [address] [place], [address] Chloride [Moles/Vol] 106 mmol/L Normal 98-108 [facility] Comment on above: Order Comment: 211.2 Performed By: #### L 500.2500, L100.0500 #### [facility] [address] [place], [address] CO2 [Moles/Vol] 21.8 mmol/L Normal 21.0-32.0 [facility] Comment on above: Order Comment: 211.2 Performed By: #### L 500.2500, L100.0500 #### [facility] [address] [place], [address] Creatinine [Mass/Vol] 0.72 mg/dL Normal 0.70-1.20 [facility] Comment on above: Order Comment: 211.2 Performed By: #### L 500.2500, L100.0500 #### [facility] [address] [place], [address] GAP 10 Normal 5-15 [facility] Comment on above: Order Comment: 211.2 Performed By: #### L 500.2500, L100.0500 #### [facility] [address] [place], [address] GFR/1.73 sq M.predicted among non-blacks MDRD (S/P/Bld) [Vol rate/Area] 86 mL/min/{1.73_m2} Normal >60 [facility] Comment on above: Order Comment: 211.2 Result Comment: mL/m in/1.73m2 CKD-EPI Creatinine Equation (2020) Performed By: #### L 500.2500, L100.0500 #### [facility] [address] [place], [address] Glucose [Mass/Vol] 92 mg/dL Normal 70-99 [facility] Comment on above: Order Comment: 211.2 Performed By: #### L 500.2500, L100.0500 #### [facility] [address] [place], [address] Potassium [Moles/Vol] 4.7 mmol/L Normal 3.3-5.1 [facility] Comment on above: Order Comment: 211.2 Performed By: #### L 500.2500, L100.0500 #### [facility] [address] [place], [address] Sodium [Moles/Vol] 138 mmol/L Normal 133-145 [facility] Comment on above: Order Comment: 211.2 Performed By: #### L 500.2500, L100.0500 #### [facility] [address] [place], [address] Urea nitrogen [Mass/Vol] 22 mg/dL High 4-19 [facility] Comment on above: Order Comment: 211.2 Performed By: #### L 500.2500, L100.0500 #### [facility] [address] [place], [address] Carbon dioxide, total [Moles /volume] in Central venous bloodOrdered By: Todd Velasquez on 02-27-2025 CO2 [Moles/Vol] 21.8 mmol/L 21.0-32.0 [facility] Chloride assayOrdered By: Whitley on 02-27-2025 Chloride [Moles/Vol] 106 mmol/L 98-108 [facility] Glomerular filtration rate ( GFR) estimation/1.73 sq m using serum, plasma, or whole bOrdered By: Todd Velasquez on 02-27-2025 GFR/1.73 sq M.predicted among non-blacks MDRD (S/P/Bld) [Vol rate/Area] 86 mL/min/{1.73_m2} >60 [facility] Comment on above: mL/min/1.73m2 CKD-EP I Creatinine Equation (2020) L501.2276on 02-27-2025 Ionized Calcium 1.27 mmol/L Normal 1.09-1.30 [facility] Comment on above: Performed By: #### L 501.2276 ####[facility] [address] [place], [address] Magnesiumon 02-27-2025 Magnesium [Mass/Vol] 2.2 mg/dL Normal 1.5-2.2 [facility] Comment on above: Order Comment: 211.2 Performed By: #### L 500.2500, L100.0500 #### [facility] [address] [place], [address] Magnesium measurement (mass/ volume)Ordered By: Todd Velasquez on 02-27-2025 Magnesium (Unsp spec) [Mass/Vol] 2.2 mg/dL 1.5-2.2 [facility] No Panel InformationOrdered By: Todd Velasquez on 02-27-2025 Addendum Document Comment . [facility] Comment on above: The SPE pattern appe ars unremarkable. Evidence ofmonoclonal protein is not apparent.Performed at: [facility] [id number] Director: Haris Peraza PhD, Phone: [phone] PTHINon 02-27-2025 PTH 68 pg/mL High 11-61 [facility] Comment on above: Performed By: #### L 500.2500, L100.0500 #### [facility] [address] [place], [address] Phosphoruson 02-27-2025 Phosphate [Mass/Vol] 3.7 mg/dL Normal 2.7-4.5 [facility] Comment on above: Order Comment: 211.2 Performed By: #### L 500.2500, L100.0500 #### [facility] [address] [place], [address] Potassium measurement (mass/ volume)Ordered By: Todd Velasquez on 02-27-2025 Potassium (Unsp spec) [Mass/Vol] 4.7 mmol/L 3.3-5.1 [facility] Protein Fractions Elph [Inte rp]Ordered By: Todd Velasquez on 02-27-2025 Protein Fractions [Interp] Comment . [facility] Comment on above: Protein electrophore sis scan will follow via computer,mail, or broomcorn thresher delivery. Serum albumin to globulin ra millicent by protein electrophoresisOrdered By: Todd Velasquez on 02-27-2025 Albumin/Globulin Elph [Mass ratio] 0.9 0.7-1.7 [facility] Serum creatinine measurement (mass/volume)Ordered By: Todd Velasquez on 02-27-2025 Creatinine [Mass/Vol] 0.72 mg/dL 0.70-1.20 [facility] Serum globulin measurement ( mass/volume)Ordered By: Todd Velasquez on 02-27-2025 Globulin (S) [Mass/Vol] 3.5 g/dL 2.2-3.9 [facility] Serum glucose measurement (m ass/volume)Ordered By: Todd Velasquez on 02-27-2025 Glucose [Mass/Vol] 92 mg/dL 70-99 [facility] Serum or plasma beta globuli n measurement by electrophoresis (mass/volume)Ordered By: Todd Velasquez on 02-27-2025 Beta globulin Elph [Mass/Vol] 1.2 g/dL 0.7-1.3 [facility] Serum or plasma calcium jacob urement (mass/volume)Ordered By: Todd Velasquez on 02-27-2025 Calcium [Mass/Vol] 9.5 mg/dL 7.6-11.0 [facility] Serum or plasma protein jacob urement (mass/volume)Ordered By: Todd Velasquez on 02-27-2025 Protein [Mass/Vol] 6.7 g/dL 6.0-8.5 [facility] Serum or plasma protein mono clonal measurement by electrophoresis (mass/volume)Ordered By: Todd Velasquez on 02-27-2025 Protein.monoclonal Elph [Mass/Vol] Not Observed g/dL Not Observed [facility] Serum or plasma urea nitroge n measurement (mass/volume)Ordered By: Todd Velasquez on 02-27-2025 Urea nitrogen [Mass/Vol] 22 mg/dL High 4-19 [facility] Sodium levelOrdered By: Todd eVlasquez on 02-27-2025 Sodium [Moles/Vol] 138 mmol/L 133-145 [facility] Vitamin D,25 Hydroxyon 02-27 Vitamin D 25-OH 46.9 ng/mL Normal 30-100 [facility] Comment on above: Order Comment: 211.2 Result Comment: Valery min D Status Deficiency: <20 ng/mL (50nmol/L) Insufficiency: 20-30 ng/mL (50-75 nmol/L) Sufficiency: 30-100 ng/mL (75-250 nmol/L) Toxicity: >100 ng/mL (>250 nmol/L) Performed By: #### L 500.2500, L100.0500 #### [facility] [address] [place], [place] [address], [address] [facility] KATHERYN CHINO ([id number]) 1945 F Date Time Provider Department 02/26/25 LOLITA JAIN RHWSTR During your visit today, we recorded the following information about you: Felipa Zuñiga LPN 02/26/2025 11:50 AM Signed Bill from [facility] called into office requesting clarification of calcium citrate supplement. Per office note SHILO velazquez states "The recommendation is [id number] mg of calcium daily between diet and [...] 02/26/2025 2:55 PM Signed Hermann Avalos from [facility] called back. Message from Lolita Jain [...] mg/spray (0.1 mL) nasal spray Use 1 Pitcher in the nose as needed for seizures [...] Encounter Status:Closed by JACKI SUMNER on 02/26/25 [facility] CNOVon 02-25-2025 CNOV Office Visit (RHWSTR ) -------- KATHERYN CHINO ([id number]) 1945 F Date Time Provider Department 02/25/25 [...] New Patient Last Rheumatology visit: None at [facility] Katheryn Chino is a 79 year old [...] years, Gender: Female SCANNER INFORMATION: DXA Model: [employer] - [employer] [id number] Date Scanned: 11/26/2024 11:08 AM CLINICAL HISTORY: DIAGNOSTIC 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 osteoporosis 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 VERTEBRAL FRACTURE ASSESSMENT Not performed. TRABECULAR [...] for treatment. (more content not included)... Normal [facility] Anion gap in Serum or Plasma Ordered By: Todd Velasquez on 02-02-2025 Anion gap [Moles/Vol] 11 mmol/L 5-15 [facility] BUN/creatinine ratioOrdered By: Todd Velasquez on 02-02-2025 Urea nitrogen/Creatinine [Mass ratio] 20.1 mg/mg High 10- [facility] Basic Metabolic Profile (BMP )on 02-02-2025 BUN/CRE 20.1 RATIO High - [facility] Comment on above: Order Comment: 211.2 Performed By: #### L 500.2500, L100.0500 #### [facility] [address] [place], [address] Calcium [Mass/Vol] 8.9 mg/dL Normal 7.6-11.0 [facility] Comment on above: Order Comment: 211.2 Performed By: #### L 500.2500, L100.0500 #### [facility] [address] [place], [address] Chloride [Moles/Vol] 105 mmol/L Normal 98-108 [facility] Comment on above: Order Comment: 211.2 Performed By: #### L 500.2500, L100.0500 #### [facility] [address] [place], [address] CO2 [Moles/Vol] 21.8 mmol/L Normal 21.0-32.0 [facility] Comment on above: Order Comment: 211.2 Performed By: #### L 500.2500, L100.0500 #### [facility] [address] [place], [address] Creatinine [Mass/Vol] 0.65 mg/dL Low 0.70-1.20 [facility] Comment on above: Order Comment: 211.2 Performed By: #### L 500.2500, L100.0500 #### [facility] [address] [place], [address] GAP 11 Normal 5-15 [facility] Comment on above: Order Comment: 211.2 Performed By: #### L 500.2500, L100.0500 #### [facility] [address] [place], [address] GFR/1.73 sq M.predicted among non-blacks MDRD (S/P/Bld) [Vol rate/Area] 91 mL/min/{1.73_m2} Normal >60 [facility] Comment on above: Order Comment: 211.2 Result Comment: mL/m in/1.73m2 CKD-EPI Creatinine Equation (2020) Performed By: #### L 500.2500, L100.0500 #### [facility] [address] [place], [address] Glucose [Mass/Vol] 85 mg/dL Normal 70-99 [facility] Comment on above: Order Comment: 211.2 Performed By: #### L 500.2500, L100.0500 #### [facility] [address] [place], [address] Potassium [Moles/Vol] 4.2 mmol/L Normal 3.3-5.1 [facility] Comment on above: Order Comment: 211.2 Performed By: #### L 500.2500, L100.0500 #### [facility] [address] [place], [address] Sodium [Moles/Vol] 138 mmol/L Normal 133-145 [facility] Comment on above: Order Comment: 211.2 Performed By: #### L 500.2500, L100.0500 #### [facility] [address] [place], [address] Urea nitrogen [Mass/Vol] 13 mg/dL Normal 4-19 [facility] Comment on above: Order Comment: 211.2 Performed By: #### L 500.2500, L100.0500 #### [facility] [address] [place], [address] Carbon dioxide, total [Moles /volume] in Central venous bloodOrdered By: Todd Velasquez on 02-02-2025 CO2 [Moles/Vol] 21.8 mmol/L 21.0-32.0 [facility] Chloride assayOrdered By: Whitley on 02-02-2025 Chloride [Moles/Vol] 105 mmol/L 98-108 [facility] GFR/1.73 sq M.predicted miguel g non-blacks MDRD (S/P/Bld) [Vol rate/Area]Ordered By: Todd Velasquez on 02-02-2025 Estimated GFR (MDRD) Non-Af Amer 91 >60 [facility] Comment on above: mL/min/1.73m2 CKD-EP I Creatinine Equation (2020) Glomerular filtration rate ( GFR) estimation/1.73 sq m using serum, plasma, or whole bOrdered By: Todd Velasquez on 02-02-2025 GFR/1.73 sq M.predicted among non-blacks MDRD (S/P/Bld) [Vol rate/Area] 91 mL/min/{1.73_m2} >60 [facility] Comment on above: mL/min/1.73m2 CKD-EP I Creatinine Equation (2020) Potassium (Unsp spec) [Mass/ Vol]Ordered By: oTdd Velasquez on 02-02-2025 Potassium [Moles/Vol] 4.2 mmol/L 3.3-5.1 [facility] Potassium measurement (mass/ volume)Ordered By: Todd Velasquez on 02-02-2025 Potassium (Unsp spec) [Mass/Vol] 4.2 mmol/L 3.3-5.1 [facility] Serum creatinine measurement (mass/volume)Ordered By: Todd Velasquez on 02-02-2025 Creatinine [Mass/Vol] 0.65 mg/dL Low 0.70-1.20 [facility] Serum glucose measurement (m ass/volume)Ordered By: Todd Velasquez on 02-02-2025 Glucose [Mass/Vol] 85 mg/dL 70-99 [facility] Serum or plasma calcium jacob urement (mass/volume)Ordered By: Todd Velasquez on 02-02-2025 Calcium [Mass/Vol] 8.9 mg/dL 7.6-11.0 [facility] Serum or plasma urea nitroge n measurement (mass/volume)Ordered By: Todd Velasquez on 02-02-2025 Urea nitrogen [Mass/Vol] 13 mg/dL 4-19 [facility] Sodium levelOrdered By: Todd Velasquez on 02-02-2025 Sodium [Moles/Vol] 138 mmol/L 133-145 [facility] TSH DL <= 0.005 mIU/L QnOrde red By: Todd Velasquez on 01-28-2025 Thyroid Stimulating Hormone (TSH) 2.410 uIU/mL 0.300-4.20 0 [facility] TSH Qn 2.410 uIU/mL 0.300-4.20 0 [facility] Thyroid Stim Hormone (TSH)on 01-28-2025 TSH 2.410 uIU/mL Normal 0.300-4.20 0 [facility] Comment on above: Order Comment: 211.2 Performed By: #### L 3410.9998, L500.4050, L100.0500, L501.8100, L501.9520 #### [facility] [address] [place], [address] Anion gap in Serum or Plasma Ordered By: Todd Velasquez on 01-19-2025 Anion gap [Moles/Vol] 12 mmol/L 5-15 [facility] BUN/creatinine ratioOrdered By: Todd Velasquez on 01-19-2025 Urea nitrogen/Creatinine [Mass ratio] 20.6 mg/mg High 10-20 [facility] Basic Metabolic Profile (BMP )on 01-19-2025 BUN/CRE 20.6 RATIO High 10-20 [facility] Comment on above: Order Comment: 211.2 Performed By: #### L 100.0500, L500.2500 ####[facility] [address] [place], [address] Calcium [Mass/Vol] 9.1 mg/dL Normal 7.6-11.0 [facility] Comment on above: Order Comment: 211.2 Performed By: #### L 100.0500, L500.2500 ####[facility] [address] [place], [address] Chloride [Moles/Vol] 104 mmol/L Normal 98-108 [facility] Comment on above: Order Comment: 211.2 Performed By: #### L 100.0500, L500.2500 ####[facility] [address] [place], [address] CO2 [Moles/Vol] 20.1 mmol/L Low 21.0-32.0 [facility] Comment on above: Order Comment: 211.2 Performed By: #### L 100.0500, L500.2500 ####[facility] [address] [place], [address] Creatinine [Mass/Vol] 0.69 mg/dL Low 0.70-1.20 [facility] Comment on above: Order Comment: 211.2 Performed By: #### L 100.0500, L500.2500 ####[facility] [address] [place], [address] GAP 12 Normal 5-15 [facility] Comment on above: Order Comment: 211.2 Performed By: #### L 100.0500, L500.2500 ####[facility] [address] [place], [address] GFR/1.73 sq M.predicted among non-blacks MDRD (S/P/Bld) [Vol rate/Area] 89 mL/min/{1.73_m2} Normal >60 [facility] Comment on above: Order Comment: 211.2 Result Comment: mL/m in/1.73m2 CKD-EPI Creatinine Equation (2020) Performed By: #### L 100.0500, L500.2500 ####[facility] [address] [place], [address] Glucose [Mass/Vol] 94 mg/dL Normal 70-99 [facility] Comment on above: Order Comment: 211.2 Performed By: #### L 100.0500, L500.2500 ####[facility] [address] [place], [address] Potassium [Moles/Vol] 4.2 mmol/L Normal 3.3-5.1 [facility] Comment on above: Order Comment: 211.2 Performed By: #### L 100.0500, L500.2500 ####[facility] [address] [place], [address] Sodium [Moles/Vol] 136 mmol/L Normal 133-145 [facility] Comment on above: Order Comment: 211.2 Performed By: #### L 100.0500, L500.2500 ####[facility] [address] [place], [address] Urea nitrogen [Mass/Vol] 14 mg/dL Normal 4-19 [facility] Comment on above: Order Comment: 211.2 Performed By: #### L 100.0500, L500.2500 ####[facility] [address] [place], [address] CBC-Complete Blood Cnt No Di ffon 01-19-2025 Erythrocyte distribution width (RBC) [Ratio] 14.1 % Normal 11.6-14.6 [facility] Comment on above: Order Comment: 211.2 Performed By: #### L 100.0500, L500.2500 ####[facility] [address] [place], [address] Hematocrit (Bld) [Volume fraction] 33.3 % Low 37-47 [facility] Comment on above: Order Comment: 211.2 Performed By: #### L 100.0500, L500.2500 ####[facility] [address] [place], [address] Hemoglobin (Bld) [Mass/Vol] 10.8 g/dL Low 12.0-15.0 [facility] Comment on above: Order Comment: 211.2 Performed By: #### L 100.0500, L500.2500 ####[facility] [address] [place], [address] MCH (RBC) [Entitic mass] 28.3 pg Normal 27.0-32.0 [facility] Comment on above: Order Comment: 211.2 Performed By: #### L 100.0500, L500.2500 ####[facility] [address] [place], [address] MCHC (RBC) [Mass/Vol] 32.4 g/dL Normal 32-36 [facility] Comment on above: Order Comment: 211.2 Performed By: #### L 100.0500, L500.2500 ####[facility] [address] [place], [address] MCV (RBC) [Entitic vol] 87.4 fL Normal 81-99 [facility] Comment on above: Order Comment: 211.2 Performed By: #### L 100.0500, L500.2500 ####[facility] [address] [place], [address] Platelet mean volume (Bld) [Entitic vol] 12.3 fL High 6.2-12.0 [facility] Comment on above: Order Comment: 211.2 Performed By: #### L 100.0500, L500.2500 ####[facility] [address] [place], [address] Platelets (Bld) [#/Vol] 193 10*3/uL Normal 150-450 [facility] Comment on above: Order Comment: 211.2 Performed By: #### L 100.0500, L500.2500 ####[facility] [address] [place], [address] RBC (Bld) [#/Vol] 3.81 10*6/uL Low 4.2-5.4 [facility] Comment on above: Order Comment: 211.2 Performed By: #### L 100.0500, L500.2500 ####[facility] [address] [place], [address] RDW SD 45.1 fl High 35.1-43.9 [facility] Comment on above: Order Comment: 211.2 Performed By: #### L 100.0500, L500.2500 ####[facility] [address] [place], [address] WBC (Bld) [#/Vol] 6.3 10*3/uL Normal 4.4-11.0 [facility] Comment on above: Order Comment: 211.2 Performed By: #### L 100.0500, L500.2500 ####[facility] [address] [place], [address] Carbon dioxide, total [Moles /volume] in Central venous bloodOrdered By: Todd Velasquez on 01-19-2025 CO2 [Moles/Vol] 20.1 mmol/L Low 21.0-32.0 [facility] Chloride assayOrdered By: Whitley on 01-19-2025 Chloride [Moles/Vol] 104 mmol/L 98-108 [facility] Erythrocyte distribution wid th (RBC) [Ratio]Ordered By: Todd Velasquez on 01-19-2025 Erythrocyte distribution width (RBC) [Entitic vol] 45.1 fL High 35.1-43.9 [facility] Erythrocyte distribution wid th ratioOrdered By: Todd Velasquez on 01-19-2025 Erythrocyte distribution width (RBC) [Ratio] 14.1 % 11.6-14.6 [facility] Erythrocyte distribution wid th standard deviationOrdered By: Todd Velasquez on 01-19-2025 Erythrocyte distribution width (RBC) [Ratio] 45.1 fl High 35.1-43.9 [facility] GFR/1.73 sq M.predicted miguel g non-blacks MDRD (S/P/Bld) [Vol rate/Area]Ordered By: Todd Velasquez on 01-19-2025 Estimated GFR (MDRD) Non-Af Amer 89 >60 [facility] Comment on above: mL/min/1.73m2 CKD-EP I Creatinine Equation (2020) Glomerular filtration rate ( GFR) estimation/1.73 sq m using serum, plasma, or whole bOrdered By: Todd Velasquez on 01-19-2025 GFR/1.73 sq M.predicted among non-blacks MDRD (S/P/Bld) [Vol rate/Area] 89 mL/min/{1.73_m2} >60 [facility] Comment on above: mL/min/1.73m2 CKD-EP I Creatinine Equation (2020) Hematocrit Auto (Bld) [Volum e fraction]Ordered By: Todd Velasquez on 01-19-2025 Hematocrit (Bld) [Volume fraction] 33.3 % Low 37-47 [facility] Hemoglobin measurementOrdere d By: Todd Velasquez on 01-19-2025 Hemoglobin (Bld) [Mass/Vol] 10.8 g/dL Low 12.0-15.0 [facility] MCV (mean corpuscular volume ) determinationOrdered By: Todd Velasquez on 01-19-2025 MCV (RBC) [Entitic vol] 87.4 fL 81-99 [facility] Mean corpuscular hemoglobin (MCH) determinationOrdered By: Todd Velasquez on 01-19-2025 MCH (RBC) [Entitic mass] 28.3 pg 27.0-32.0 [facility] Mean corpuscular hemoglobin concentration (MCHC) determinationOrdered By: Todd Velasquez on 01-19-2025 MCHC (RBC) [Mass/Vol] 32.4 g/dL 32-36 [facility] Mean platelet volume determi nationOrdered By: Todd Velasquez on 01-19-2025 Platelet mean volume (Bld) [Entitic vol] 12.3 fL High 6.2-12.0 [facility] Platelet countOrdered By: Whitley on 01-19-2025 Platelets (Bld) [#/Vol] 193 10*3/uL 150-450 [facility] Potassium (Unsp spec) [Mass/ Vol]Ordered By: Todd Velasquez on 01-19-2025 Potassium [Moles/Vol] 4.2 mmol/L 3.3-5.1 [facility] Potassium measurement (mass/ volume)Ordered By: Todd Velasquez on 01-19-2025 Potassium (Unsp spec) [Mass/Vol] 4.2 mmol/L 3.3-5.1 [facility] RBC Auto (Bld) [#/Vol]Ordere d By: Todd Velasquez on 01-19-2025 RBC (Bld) [#/Vol] 3.81 10*6/uL Low 4.2-5.4 [facility] Serum creatinine measurement (mass/volume)Ordered By: Todd Velasquez on 01-19-2025 Creatinine [Mass/Vol] 0.69 mg/dL Low 0.70-1.20 [facility] Serum glucose measurement (m ass/volume)Ordered By: Todd Velasquez on 01-19-2025 Glucose [Mass/Vol] 94 mg/dL 70-99 [facility] Serum or plasma calcium jacob urement (mass/volume)Ordered By: Todd Velasquez on 01-19-2025 Calcium [Mass/Vol] 9.1 mg/dL 7.6-11.0 [facility] Serum or plasma urea nitroge n measurement (mass/volume)Ordered By: Todd Velasquez on 01-19-2025 Urea nitrogen [Mass/Vol] 14 mg/dL 4-19 [facility] Sodium levelOrdered By: Todd Velasquez on 01-19-2025 Sodium [Moles/Vol] 136 mmol/L 133-145 [facility] White blood cell (WBC) count Ordered By: Todd Velasquez on 01-19-2025 WBC (Bld) [#/Vol] 6.3 10*3/uL 4.4-11.0 [facility] CNPNon 01-16-2025 CNPN Telephone (NE50MN) -------- KATHERYN CHINO ([id number]) 1945 F Date Time Provider Department 01/16/25 JAYANT JIMENEZ NE50MN During your visit today, we recorded the following information about you: Naheed Guallpa 01/16/2025 12:38 PM Signed Medication Concern Person Calling [facility] from [facility] Name of medication Lacosamide Concern with medication [...] the 100 mg tablets BID Spoke with [place] Confirmed LCM 100/150 they are questioning because [...] mg/spray (0.1 mL) nasal spray Use 1 Pitcher in the nose as needed for seizures [...] care, counseling/d (more content not included)... Normal [facility] CNOVon 01-15-2025 CNOV Office Visit (NEEPBA ) -------- KATHERYN CHINO ([id number]) 1945 F Date Time Provider Department 01/15/25 [...] precautions - No driving in the state [facility] until seizure free for 6 months. [...] factor. Jayant Jimenez MD Associate Staff, Epilepsy [facility] January 15, 2025 Office phone: [phone] Jayant Jimenez MD 01/15/2025 8:54 AM Signed [facility] Patient Name: Katheryn Chino Date of : 1945 ESTABLISHED EPILEPSY CLINIC NOTE 01/15/2025 8:00 AM Reason for Visit: Follow Up and Epilepsy Clinical Summary: Ms. Chino is a 79 year old female seen in [facility]. At today's visit, the patient [...] with AEDs . She moved to a [place] and she has more suervison with AEDs now. 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 She had good seizure control for a few years until covid. Hospitaltization in Aug 2024 for a prolonged GTCS at the facility ( brother reports it lasted ~ 25 mins). Admitted to [facility] where Dilantin and Depakote levels were low. [...] a goo (more content not included)... Normal [facility] Serum or plasma valproate me asurement (mass/volume)Ordered By: Todd Velasquez on 12-26-2024 Valproate [Mass/Vol] 91 ug/mL 50-100 [facility] Comment on above: Valproic Acid concen trations >100 ug/mL are potentially toxic. Valproate [Mass/Vol]Ordered By: Todd Velasquez on 12-26-2024 Valproic Acid (Depakene) Level 91 ug/mL 50-100 [facility] Comment on above: Valproic Acid concen trations >100 ug/mL are potentially toxic. Valproic Acid (Depakene) Lev maribell 12-26-2024 VALPROIC ACID 91 ug/mL Normal 50-100 [facility] Comment on above: Order Comment: 211.2 Result Comment: Valp roic Acid concentrations >100 ug/mL are potentially toxic. Performed By: #### L 3410.9998, L500.4050, L100.0500, L501.8100, L501.9520 #### [facility] [address] [place], [address] Kuldip 12-24-2024 LIBORIO Telephone (NEUSES) -------- KATHERYN CHINO ([id number]) 1945 F Date Time Provider Department 12/24/24 JAYANT JIMENEZ During your visit today, we recorded the following information about you: Franchesca Arana 12/24/2024 8:57 AM Signed ORDERS Person requesting order: [facility] Phone number: [phone] Order being requested: [facility] [facility] Patient of Dr. Jimenez Forwarded to Nurse Silvia Rogers RN 12/24/2024 2:24 PM Signed Spoke with nurse Becker at [facility]. See 12/23/24 encounter. Silvia Rogers RN Allergies As of Date: 12/24/2024 (No Known Allergies) Date Reviewed: 09/24/2024 Reviewed by: Shalini Montana LPN - Fully Assessed Reason for Visit: Orders [321] Cmt: [facility] Prescriptions as of 12/24/2024 - midazolam (NAYZILAM) 5 mg/spray (0.1 mL) nasal spray Use 1 Pitcher in the nose as needed for seizures [...] Encounter Status:Closed by SILVIA ROGERS on 12/24/24 [facility] 12-23-2024 CNPN Telephone (NE50MN) -------- KATHERYN CHINO ([id number]) 1945 F Date Time Provider Department 12/23/24 JAYANT JIMENEZ NE50MN During your visit today, we recorded the following information about you: Chandni Hull 12/23/2024 2:21 PM Signed Medication Concern Person Calling Rosita Cornejo, from [facility], ask for Yeni's nurse Name of medication Nayzilam Concern with medication Nurse states the medication did not work the last time the patient had a seizure. Wants to know if another rescue medication can be prescribed instead. Patient of Silvia Ponce, RN 12/24/2024 2:23 PM Signed Spoke with nurse Becker. Facility DON would [...] spray 2 Each 1 Sig: Use 1 Pitcher in the nose as needed for seizures lasting longer than 3 minutes. May repeat dose once after 4 hours based on response and tolerability for a maximum of 2 doses per 24-hour period. Authorizing Provider: ARTIS HAMILTON APRN.Silvia Willis RN 12/25/2024 2:36 PM Signed [employer] Rx faxed via [employer] to: [facility] PH: [phone] FAX : [phone] Confirmation received. Called the facility, spoke with [...] 10 mg/spray (0.1 mL) nasal sprayUse 1 Pitcher in the nose as needed for seizures lasting longer than 3 minutes. May repeat dose once after 4 hours based on response and tolerability for a maximum of 2 doses per 24-hour period.Disp: 2 EachRfl: 1 Prescriptions as of 12/25/2024 - diazePAM (VALTOCO) 10 mg/spray (0.1 mL) nasal spray Use 1 Pitcher in the nose as needed for seizures [...] - d (more content not included)... Normal [facility] CNPNon 12-19-2024 CNPN Telephone (NE50MN) -------- KATHERYN CHINO ([id number]) 1945 F Date Time Provider Department 12/19/24 JAYANT JIMENEZ NE50MN During your visit today, we recorded the following information about you: Yocasta Rivers 12/19/2024 12:37 PM Signed [facility] PHONE/FAX COLLECTION DATE AND TIME: 12/15/24 540 Uploaded to Silvia Abernathy RN 12/19/2024 12:53 PM Signed Current LCM dose 100/150 Forwarded to [facility] [employer] [place] for review. MEGA Christianson Kelly, ANYI.DWAYNE 12/19/2024 1:53 PM Signed Level WNL If she has not had further seizures since reaching 100/150 of LCM can continue dose unchanged, any seizures would increase to 150/150 Artis Hamilton, ANYI.Silvia Willis RN 12/24/2024 2:27 PM Signed See 12/23/24 phone encounter. Silvia Rogers RN Allergies As of Date: 12/19/2024 (No Known Allergies) Date Reviewed: 09/24/2024 Reviewed by: Shalini Montana LPN - Fully Assessed Reason for Visit: Outside Lab Results [753] Cmt: lacosamide Prescriptions as of 12/24/2024 - midazolam (NAYZILAM) 5 mg/spray (0.1 mL) nasal spray Use 1 Pitcher in the nose as needed for seizures [...] Status:Closed by SILVIA ROGERS on 12/24/24 Normal [facility] L3410.9998on 12-19-2024 [facility] Misc. COMMENT Normal . [facility] Comment on above: Order Comment: 211.2 SERUM POUR OFF ROOM TEMP 025202 LACOSAMIDE Result Comment: Test Ordered: 005689 Lacosamide Test(s) 562125-Yhfypklnxm was developed and its performance characteristics determined by [facility]. It has not been cleared or approved by the Food and Drug Administration. Lacosamide 4.6 [L ] ug/mL Reference Range: 5.0-10.0 Limit of Detection 0.5 Mean plasma concentrations following maintenance dose 200 mg/day 4.99 +/- 2.51 ug/mL 400 mg/day 9.35 +/- 4.22 ug/mL 600 mg/day 12.46 +/- 5.60 ug/mL Performed at: - [facility] [address] [id number] [place] Fisherman: Nahed Naidu MD, Phone: [phone] Performed at: - [facility] [address] [id number] [place]man: Haris Peraza PhD, Phone: [phone] Performed By: #### L 3410.9998, L500.4050, L100.0500, L501.8100, L501.9520 #### [facility] [address] [place], [address] BUN/creatinine ratioOrdered By: Todd Velasquez on 12-15-2024 Urea nitrogen/Creatinine [Mass ratio] 17.8 mg/mg 10-20 [facility] Bilirubin, totalOrdered By: Todd Velasquez on 12-15-2024 Bilirubin [Mass/Vol] 0.24 mg/dL 0.00-1.30 [facility] CBC-Complete Blood Cnt No Di ffon 12-15-2024 Erythrocyte distribution width (RBC) [Ratio] 13.6 % Normal 11.6-14.6 [facility] Comment on above: Order Comment: 211.2 Performed By: #### L 3410.9998, L500.4050, L100.0500, L501.8100, L501.9520 #### [facility] [address] [place], [address] Hematocrit (Bld) [Volume fraction] 31.6 % Low 37-47 [facility] Comment on above: Order Comment: 211.2 Performed By: #### L 3410.9998, L500.4050, L100.0500, L501.8100, L501.9520 #### [facility] [address] [place], [address] Hemoglobin (Bld) [Mass/Vol] 9.8 g/dL Low 12.0-15.0 [facility] Comment on above: Order Comment: 211.2 Performed By: #### L 3410.9998, L500.4050, L100.0500, L501.8100, L501.9520 #### [facility] [address] [place], [address] MCH (RBC) [Entitic mass] 28.2 pg Normal 27.0-32.0 [facility] Comment on above: Order Comment: 211.2 Performed By: #### L 3410.9998, L500.4050, L100.0500, L501.8100, L501.9520 #### [facility] [address] [place], [address] MCHC (RBC) [Mass/Vol] 31.0 g/dL Low 32-36 [facility] Comment on above: Order Comment: 211.2 Performed By: #### L 3410.9998, L500.4050, L100.0500, L501.8100, L501.9520 #### [facility] [address] [place], [address] MCV (RBC) [Entitic vol] 91.1 fL Normal 81-99 [facility] Comment on above: Order Comment: 211.2 Performed By: #### L 3410.9998, L500.4050, L100.0500, L501.8100, L501.9520 #### [facility] [address] [place], [address] Platelet mean volume (Bld) [Entitic vol] 12.7 fL High 6.2-12.0 [facility] Comment on above: Order Comment: 211.2 Performed By: #### L 3410.9998, L500.4050, L100.0500, L501.8100, L501.9520 #### [facility] [address] [place], [address] Platelets (Bld) [#/Vol] 194 10*3/uL Normal 150-450 [facility] Comment on above: Order Comment: 211.2 Performed By: #### L 3410.9998, L500.4050, L100.0500, L501.8100, L501.9520 #### [facility] [address] [place], [address] RBC (Bld) [#/Vol] 3.47 10*6/uL Low 4.2-5.4 [facility] Comment on above: Order Comment: 211.2 Performed By: #### L 3410.9998, L500.4050, L100.0500, L501.8100, L501.9520 #### [facility] [address] [place], [address] RDW SD 45.2 fl High 35.1-43.9 [facility] Comment on above: Order Comment: 211.2 Performed By: #### L 3410.9998, L500.4050, L100.0500, L501.8100, L501.9520 #### [facility] [address] [place], [address] WBC (Bld) [#/Vol] 7.1 10*3/uL Normal 4.4-11.0 [facility] Comment on above: Order Comment: 211.2 Performed By: #### L 3410.9998, L500.4050, L100.0500, L501.8100, L501.9520 #### [facility] [address] [place], [address] Carbon dioxide measurementOr dered By: Todd Velasquez on 12-15-2024 CO2 [Moles/Vol] 23.3 mmol/L 22.0-29.0 [facility] Chloride measurementOrdered By: Todd Velasquez on 12-15-2024 Chloride [Moles/Vol] 105 mmol/L 96-108 [facility] Comprehensive Metabolic Prof ilon 12-15-2024 Albumin [Mass/Vol] 3.8 g/dL Normal 3.4-4.8 [facility] Comment on above: Order Comment: 211.2 Performed By: #### L 3410.9998, L500.4050, L100.0500, L501.8100, L501.9520 #### [facility] [address] [place], [address] Albumin/Globulin [Mass ratio] 1.3 {ratio} Normal 0.9-2.4 [facility] Comment on above: Order Comment: 211.2 Performed By: #### L 3410.9998, L500.4050, L100.0500, L501.8100, L501.9520 #### [facility] [address] [place], [address] ALK PHOS 121 U/L High 35-104 [facility] Comment on above: Order Comment: 211.2 Performed By: #### L 3410.9998, L500.4050, L100.0500, L501.8100, L501.9520 #### [facility] [address] [place], [address] ALT [Catalytic activity/Vol] 16 U/L Normal <=34 [facility] Comment on above: Order Comment: 211.2 Performed By: #### L 3410.9998, L500.4050, L100.0500, L501.8100, L501.9520 #### [facility] [address] [place], [address] Anion gap [Moles/Vol] 9 mmol/L Normal 5-15 [facility] Comment on above: Order Comment: 211.2 Performed By: #### L 3410.9998, L500.4050, L100.0500, L501.8100, L501.9520 #### [facility] [address] [place], [address] AST [Catalytic activity/Vol] 28 U/L Normal <=31 [facility] Comment on above: Order Comment: 211.2 Performed By: #### L 3410.9998, L500.4050, L100.0500, L501.8100, L501.9520 #### [facility] [address] [place], [address] Bilirubin [Mass/Vol] 0.24 mg/dL Normal 0.00-1.30 [facility] Comment on above: Order Comment: 211.2 Performed By: #### L 3410.9998, L500.4050, L100.0500, L501.8100, L501.9520 #### [facility] [address] [place], [address] BUN/CRE 17.8 RATIO Normal 10-20 [facility] Comment on above: Order Comment: 211.2 Performed By: #### L 3410.9998, L500.4050, L100.0500, L501.8100, L501.9520 #### [facility] [address] [place], [address] Calcium [Mass/Vol] 9.1 mg/dL Normal 7.6-11.0 [facility] Comment on above: Order Comment: 211.2 Performed By: #### L 3410.9998, L500.4050, L100.0500, L501.8100, L501.9520 #### [facility] [address] [place], [address] Chloride [Moles/Vol] 105 mmol/L Normal 96-108 [facility] Comment on above: Order Comment: 211.2 Performed By: #### L 3410.9998, L500.4050, L100.0500, L501.8100, L501.9520 #### [facility] [address] [place], [address] CO2 [Moles/Vol] 23.3 mmol/L Normal 22.0-29.0 [facility] Comment on above: Order Comment: .2 Performed By: #### L 3410.9998, L500.4050, L100.0500, L501.8100, L501.9520 #### [facility] [address] [place], [address] Creatinine [Mass/Vol] 0.61 mg/dL Low 0.70-1.20 [facility] Comment on above: Order Comment: .2 Performed By: #### L 3410.9998, L500.4050, L100.0500, L501.8100, L501.9520 #### [facility] [address] [place], [address] GFR/1.73 sq M.predicted among non-blacks MDRD (S/P/Bld) [Vol rate/Area] 92 mL/min/{1.73_m2} Normal >60 [facility] Comment on above: Order Comment: .2 Result Comment: mL/m in/1.73m2 CKD-EPI Creatinine Equation (2020) Performed By: #### L 3410.9998, L500.4050, L100.0500, L501.8100, L501.9520 #### [facility] [address] [place], [address] Globulin (S) [Mass/Vol] 3.0 g/dL Normal 2.2-4.2 [facility] Comment on above: Order Comment: .2 Performed By: #### L 3410.9998, L500.4050, L100.0500, L501.8100, L501.9520 #### [facility] [address] [place], [address] Glucose [Mass/Vol] 90 mg/dL Normal 70-99 [facility] Comment on above: Order Comment: 211.2 Performed By: #### L 3410.9998, L500.4050, L100.0500, L501.8100, L501.9520 #### [facility] [address] [place], [address] Potassium [Moles/Vol] 4.8 mmol/L Normal 3.3-5.1 [facility] Comment on above: Order Comment: 211.2 Performed By: #### L 3410.9998, L500.4050, L100.0500, L501.8100, L501.9520 #### [facility] [address] [place], [address] Sodium [Moles/Vol] 137 mmol/L Normal 133-145 [facility] Comment on above: Order Comment: 211.2 Performed By: #### L 3410.9998, L500.4050, L100.0500, L501.8100, L501.9520 #### [facility] [address] [place], [address] T PROT 6.8 g/dL Normal 5.9-8.4 [facility] Comment on above: Order Comment: 211.2 Performed By: #### L 3410.9998, L500.4050, L100.0500, L501.8100, L501.9520 #### [facility] [address] [place], [address] Urea nitrogen [Mass/Vol] 11 mg/dL Normal 4-19 [facility] Comment on above: Order Comment: 211.2 Performed By: #### L 3410.9998, L500.4050, L100.0500, L501.8100, L501.9520 #### [facility] [address] [place], [address] Erythrocyte distribution wid th (RBC) [Ratio]Ordered By: Todd Velasquez on 12-15-2024 Erythrocyte distribution width (RBC) [Entitic vol] 45.2 fL High 35.1-43.9 [facility] Erythrocyte distribution wid th ratioOrdered By: Todd Velasquez on 12-15-2024 Erythrocyte distribution width (RBC) [Ratio] 13.6 % 11.6-14.6 [facility] Erythrocyte distribution wid th standard deviationOrdered By: Todd Velasquez on 12-15-2024 Erythrocyte distribution width (RBC) [Ratio] 45.2 fl High 35.1-43.9 [facility] GFR/1.73 sq M.predicted miguel g non-blacks MDRD (S/P/Bld) [Vol rate/Area]Ordered By: Todd Velasquez on 12-15-2024 Estimated GFR (MDRD) Non-Af Amer 92 >60 [facility] Comment on above: mL/min/1.73m2 CKD-EP I Creatinine Equation (2020) Glomerular filtration rate ( GFR) estimation/1.73 sq m using serum, plasma, or whole bOrdered By: Todd Velasquez on 12-15-2024 GFR/1.73 sq M.predicted among non-blacks MDRD (S/P/Bld) [Vol rate/Area] 92 mL/min/{1.73_m2} >60 [facility] Comment on above: mL/min/1.73m2 CKD-EP I Creatinine Equation (2020) Hematocrit Auto (Bld) [Volum e fraction]Ordered By: Todd Velasquez on 12-15-2024 Hematocrit (Bld) [Volume fraction] 31.6 % Low 37-47 [facility] Hemoglobin measurementOrdere d By: Todd Velasquez on 12-15-2024 Hemoglobin (Bld) [Mass/Vol] 9.8 g/dL Low 12.0-15.0 [facility] - Chemistry and C hemistry - challengeOrdered By: Todd Velasquez on 12-15-2024 AST [Catalytic activity/Vol] 28 U/L <32 [facility] MCV (mean corpuscular volume ) determinationOrdered By: Todd Velasquez on 12-15-2024 MCV (RBC) [Entitic vol] 91.1 fL 81-99 [facility] Mean corpuscular hemoglobin (MCH) determinationOrdered By: Todd Velasquez on 12-15-2024 MCH (RBC) [Entitic mass] 28.2 pg 27.0-32.0 [facility] Mean corpuscular hemoglobin concentration (MCHC) determinationOrdered By: Todd Velasquez on 12-15-2024 MCHC (RBC) [Mass/Vol] 31.0 g/dL Low 32-36 [facility] Mean platelet volume determi nationOrdered By: Todd Velasquez on 12-15-2024 Platelet mean volume (Bld) [Entitic vol] 12.7 fL High 6.2-12.0 [facility] Platelet countOrdered By: Whitley on 12-15-2024 Platelets (Bld) [#/Vol] 194 10*3/uL 150-450 [facility] RBC Auto (Bld) [#/Vol]Ordere d By: Todd Velasquez on 12-15-2024 RBC (Bld) [#/Vol] 3.47 10*6/uL Low 4.2-5.4 [facility] Serum creatinine measurement (mass/volume)Ordered By: Todd Velasquez on 12-15-2024 Creatinine [Mass/Vol] 0.61 mg/dL Low 0.70-1.20 [facility] Serum globulin measurementOr dered By: Todd Velasquez on 12-15-2024 Globulin (S) [Mass/Vol] 3.0 g/dL 2.2-4.2 [facility] Serum glucose measurement (m ass/volume)Ordered By: Todd Velasquez on 12-15-2024 Glucose [Mass/Vol] 90 mg/dL 70-99 [facility] Serum or plasma alanine ignacio otransferase (ALT) measurementOrdered By: Todd Velasquez on 12-15-2024 ALT [Catalytic activity/Vol] 16 U/L <35 [facility] Serum or plasma albumin jacob urement (mass/volume)Ordered By: Todd Velasquez on 12-15-2024 Albumin [Mass/Vol] 3.8 g/dL 3.4-4.8 [facility] Serum or plasma albumin/glob ulin mass ratioOrdered By: Todd Velasquez on 12-15-2024 Albumin/Globulin [Mass ratio] 1.3 {ratio} 0.9-2.4 [facility] Serum or plasma alkaline phillip sphatase measurementOrdered By: Todd Velasquez on 12-15-2024 ALP [Catalytic activity/Vol] 121 U/L High 35-104 [facility] Serum or plasma anion gap de termination (moles/volume)Ordered By: Todd Velasquez on 12-15-2024 Anion gap [Moles/Vol] 9 mmol/L 5-15 [facility] Serum or plasma calcium jacob urement (mass/volume)Ordered By: Todd Velasquez on 12-15-2024 Calcium [Mass/Vol] 9.1 mg/dL 7.6-11.0 [facility] Serum or plasma potassium me asurementOrdered By: Todd Velasquez on 12-15-2024 Potassium [Moles/Vol] 4.8 mmol/L 3.3-5.1 [facility] Serum or plasma sodium measu rement (moles/volume)Ordered By: Todd Velasquez on 12-15-2024 Sodium [Moles/Vol] 137 mmol/L 133-145 [facility] Serum or plasma urea nitroge n measurement (mass/volume)Ordered By: Todd Velasquez on 12-15-2024 Urea nitrogen [Mass/Vol] 11 mg/dL 4-19 [facility] Serum or plasma valproate me asurement (mass/volume)Ordered By: Todd Velasquez on 12-15-2024 Valproate [Mass/Vol] 40 ug/mL Low 50-100 [facility] Comment on above: Valproic Acid concen trations >100 ug/mL are potentially toxic. TSH DL <= 0.005 mIU/L QnOrde red By: Todd Velasquez on 12-15-2024 Thyroid Stimulating Hormone (TSH) 4.640 uIU/mL High 0.300-4.20 0 [facility] TSH Qn 4.640 uIU/mL High 0.300-4.20 0 [facility] Thyroid Stim Hormone (TSH)on 12-15-2024 TSH 4.640 uIU/mL High 0.300-4.20 0 [facility] Comment on above: Order Comment: 211.2 Performed By: #### L 3410.9998, L500.4050, L100.0500, L501.8100, L501.9520 #### [facility] [address] [place], [place], [id number] Total proteinOrdered By: Ignacia Velasquez on 12-15-2024 Protein [Mass/Vol] 6.8 g/dL 5.9-8.4 [facility] Valproate [Mass/Vol]Ordered By: Todd Velasquez on 12-15-2024 Valproic Acid (Depakene) Level 40 ug/mL Low 50-100 [facility] Comment on above: Valproic Acid concen trations >100 ug/mL are potentially toxic. Valproic Acid (Depakene) Lev maribell 12-15-2024 VALPROIC ACID 40 ug/mL Low 50-100 [facility] Comment on above: Order Comment: 211.2 Result Comment: Valp roic Acid concentrations >100 ug/mL are potentially toxic. Performed By: #### L 3410.9998, L500.4050, L100.0500, L501.8100, L501.9520 #### [facility] [address] [place], [place], [id number] White blood cell (WBC) count Ordered By: Todd Velasquez on 12-15-2024 WBC (Bld) [#/Vol] 7.1 10*3/uL 4.4-11.0 [facility] BUN/creatinine ratioOrdered By: Todd Velasquez on 12-10-2024 Urea nitrogen/Creatinine [Mass ratio] 20.4 mg/mg High 10-20 [facility] Bilirubin, totalOrdered By: Todd Velasquez on 12-10-2024 Bilirubin [Mass/Vol] 0.21 mg/dL 0.00-1.30 [facility] CBC-Complete Blood Cnt No Di ffon 12-10-2024 Erythrocyte distribution width (RBC) [Ratio] 13.2 % Normal 11.6-14.6 [facility] Comment on above: Order Comment: 211.2 Performed By: #### L 3410.9998, L500.4050, L100.0500, L501.8100, L501.9520 #### [facility] [address] [place], [address] Hematocrit (Bld) [Volume fraction] 31.1 % Low 37-47 [facility] Comment on above: Order Comment: 211.2 Performed By: #### L 3410.9998, L500.4050, L100.0500, L501.8100, L501.9520 #### [facility] [address] [place], [address] Hemoglobin (Bld) [Mass/Vol] 10.1 g/dL Low 12.0-15.0 [facility] Comment on above: Order Comment: 211.2 Performed By: #### L 3410.9998, L500.4050, L100.0500, L501.8100, L501.9520 #### [facility] [address] [place], [address] MCH (RBC) [Entitic mass] 28.9 pg Normal 27.0-32.0 [facility] Comment on above: Order Comment: 211.2 Performed By: #### L 3410.9998, L500.4050, L100.0500, L501.8100, L501.9520 #### [facility] [address] [place], [address] MCHC (RBC) [Mass/Vol] 32.5 g/dL Normal 32-36 [facility] Comment on above: Order Comment: 211.2 Performed By: #### L 3410.9998, L500.4050, L100.0500, L501.8100, L501.9520 #### [facility] [address] [place], [address] MCV (RBC) [Entitic vol] 89.1 fL Normal 81-99 [facility] Comment on above: Order Comment: 211.2 Performed By: #### L 3410.9998, L500.4050, L100.0500, L501.8100, L501.9520 #### [facility] [address] [place], [address] Platelet mean volume (Bld) [Entitic vol] 11.9 fL Normal 6.2-12.0 [facility] Comment on above: Order Comment: 211.2 Performed By: #### L 3410.9998, L500.4050, L100.0500, L501.8100, L501.9520 #### [facility] [address] [place], [address] Platelets (Bld) [#/Vol] 177 10*3/uL Normal 150-450 [facility] Comment on above: Order Comment: 211.2 Performed By: #### L 3410.9998, L500.4050, L100.0500, L501.8100, L501.9520 #### [facility] [address] [place], [address] RBC (Bld) [#/Vol] 3.49 10*6/uL Low 4.2-5.4 [facility] Comment on above: Order Comment: 211.2 Performed By: #### L 3410.9998, L500.4050, L100.0500, L501.8100, L501.9520 #### [facility] [address] [place], [address] RDW SD 43.0 fl Normal 35.1-43.9 [facility] Comment on above: Order Comment: 211.2 Performed By: #### L 3410.9998, L500.4050, L100.0500, L501.8100, L501.9520 #### [facility] [address] [place], [address] WBC (Bld) [#/Vol] 6.6 10*3/uL Normal 4.4-11.0 [facility] Comment on above: Order Comment: 211.2 Performed By: #### L 3410.9998, L500.4050, L100.0500, L501.8100, L501.9520 #### [facility] [address] [place], [address] Carbon dioxide measurementOr dered By: Todd Velasquez on 12-10-2024 CO2 [Moles/Vol] 24.4 mmol/L 22.0-29.0 [facility] Chloride measurementOrdered By: Todd Velasquez on 12-10-2024 Chloride [Moles/Vol] 105 mmol/L 96-108 [facility] Comprehensive Metabolic Prof ilon 12-10-2024 Albumin [Mass/Vol] 3.6 g/dL Normal 3.4-4.8 [facility] Comment on above: Order Comment: 211.2 Performed By: #### L 3410.9998, L500.4050, L100.0500, L501.8100, L501.9520 #### [facility] [address] [place], [address] Albumin/Globulin [Mass ratio] 1.3 {ratio} Normal 0.9-2.4 [facility] Comment on above: Order Comment: 211.2 Performed By: #### L 3410.9998, L500.4050, L100.0500, L501.8100, L501.9520 #### [facility] [address] [place], [address] ALK PHOS 118 U/L High 35-104 [facility] Comment on above: Order Comment: 211.2 Performed By: #### L 3410.9998, L500.4050, L100.0500, L501.8100, L501.9520 #### [facility] [address] [place], [address] ALT [Catalytic activity/Vol] 14 U/L Normal <=34 [facility] Comment on above: Order Comment: 211.2 Performed By: #### L 3410.9998, L500.4050, L100.0500, L501.8100, L501.9520 #### [facility] [address] [place], [address] Anion gap [Moles/Vol] 11 mmol/L Normal 5-15 [facility] Comment on above: Order Comment: 211.2 Performed By: #### L 3410.9998, L500.4050, L100.0500, L501.8100, L501.9520 #### [facility] [address] [place] [place], [address] AST [Catalytic activity/Vol] 34 U/L High <=31 [facility] Comment on above: Order Comment: 211.2 Performed By: #### L 3410.9998, L500.4050, L100.0500, L501.8100, L501.9520 #### [facility] [address] [place], [address] Bilirubin [Mass/Vol] 0.21 mg/dL Normal 0.00-1.30 [facility] Comment on above: Order Comment: 211.2 Performed By: #### L 3410.9998, L500.4050, L100.0500, L501.8100, L501.9520 #### [facility] [address] [place], [address] BUN/CRE 20.4 RATIO High 10-20 [facility] Comment on above: Order Comment: 211.2 Performed By: #### L 3410.9998, L500.4050, L100.0500, L501.8100, L501.9520 #### [facility] [address] [place], [address] Calcium [Mass/Vol] 8.9 mg/dL Normal 7.6-11.0 [facility] Comment on above: Order Comment: 211.2 Performed By: #### L 3410.9998, L500.4050, L100.0500, L501.8100, L501.9520 #### [facility] [address] [place], [address] Chloride [Moles/Vol] 105 mmol/L Normal 96-108 [facility] Comment on above: Order Comment: 211.2 Performed By: #### L 3410.9998, L500.4050, L100.0500, L501.8100, L501.9520 #### [facility] [address] [place], [address] CO2 [Moles/Vol] 24.4 mmol/L Normal 22.0-29.0 [facility] Comment on above: Order Comment: 211.2 Performed By: #### L 3410.9998, L500.4050, L100.0500, L501.8100, L501.9520 #### [facility] [address] [place], [address] Creatinine [Mass/Vol] 0.6 mg/dL Normal 0.6-1.0 [facility] Comment on above: Order Comment: 211.2 Performed By: #### L 3410.9998, L500.4050, L100.0500, L501.8100, L501.9520 #### [facility] [address] [place], [address] GFR/1.73 sq M.predicted among non-blacks MDRD (S/P/Bld) [Vol rate/Area] 95 mL/min/{1.73_m2} Normal >60 [facility] Comment on above: Order Comment: 211.2 Result Comment: mL/m in/1.73m2 CKD-EPI Creatinine Equation (2020) Performed By: #### L 3410.9998, L500.4050, L100.0500, L501.8100, L501.9520 #### [facility] [address] [place], [address] Globulin (S) [Mass/Vol] 2.7 g/dL Normal 2.2-4.2 [facility] Comment on above: Order Comment: 211.2 Performed By: #### L 3410.9998, L500.4050, L100.0500, L501.8100, L501.9520 #### [facility] [address] [place], [address] Glucose [Mass/Vol] 92 mg/dL Normal 70-99 [facility] Comment on above: Order Comment: 211.2 Performed By: #### L 3410.9998, L500.4050, L100.0500, L501.8100, L501.9520 #### [facility] [address] [place], [address] Potassium [Moles/Vol] 4.1 mmol/L Normal 3.3-5.1 [facility] Comment on above: Order Comment: 211.2 Performed By: #### L 3410.9998, L500.4050, L100.0500, L501.8100, L501.9520 #### [facility] [address] [place], [address] Sodium [Moles/Vol] 140 mmol/L Normal 133-145 [facility] Comment on above: Order Comment: 211.2 Performed By: #### L 3410.9998, L500.4050, L100.0500, L501.8100, L501.9520 #### [facility] [address] [place], [address] T PROT 6.3 g/dL Normal 5.9-8.4 [facility] Comment on above: Order Comment: 211.2 Performed By: #### L 3410.9998, L500.4050, L100.0500, L501.8100, L501.9520 #### [facility] [address] [place], [address] Urea nitrogen [Mass/Vol] 11 mg/dL Normal 4-19 [facility] Comment on above: Order Comment: 211.2 Performed By: #### L 3410.9998, L500.4050, L100.0500, L501.8100, L501.9520 #### [facility] [address] [place], [address] Creatinine [Moles/Vol]Ordere d By: Todd Velasquez on 12-10-2024 Creatinine [Mass/Vol] 0.6 mg/dL 0.6-1.0 [facility] Erythrocyte distribution wid th (RBC) [Ratio]Ordered By: Todd Velasquez on 12-10-2024 Erythrocyte distribution width (RBC) [Entitic vol] 43.0 fL 35.1-43.9 [facility] Erythrocyte distribution wid th ratioOrdered By: Todd Velasquez on 12-10-2024 Erythrocyte distribution width (RBC) [Ratio] 13.2 % 11.6-14.6 [facility] Erythrocyte distribution wid th standard deviationOrdered By: Todd Velasquez on 12-10-2024 Erythrocyte distribution width (RBC) [Ratio] 43.0 fl 35.1-43.9 [facility] GFR/1.73 sq M.predicted miguel g non-blacks MDRD (S/P/Bld) [Vol rate/Area]Ordered By: Todd Velasquez on 12-10-2024 Estimated GFR (MDRD) Non-Af Amer 95 >60 [facility] Comment on above: mL/min/1.73m2 CKD-EP I Creatinine Equation (2020) Glomerular filtration rate ( GFR) estimation/1.73 sq m using serum, plasma, or whole bOrdered By: Todd Velasquez on 12-10-2024 GFR/1.73 sq M.predicted among non-blacks MDRD (S/P/Bld) [Vol rate/Area] 95 mL/min/{1.73_m2} >60 [facility] Comment on above: mL/min/1.73m2 CKD-EP I Creatinine Equation (2020) Hematocrit Auto (Bld) [Volum e fraction]Ordered By: Todd Velasquez on 12-10-2024 Hematocrit (Bld) [Volume fraction] 31.1 % Low 37-47 [facility] Hemoglobin measurementOrdere d By: Todd Velasquez on 12-10-2024 Hemoglobin (Bld) [Mass/Vol] 10.1 g/dL Low 12.0-15.0 [facility] - Chemistry and C hemistry - challengeOrdered By: Todd Velasquez on 12-10-2024 AST [Catalytic activity/Vol] 34 U/L High <32 [facility] MCV (mean corpuscular volume ) determinationOrdered By: Todd Velasquez on 12-10-2024 MCV (RBC) [Entitic vol] 89.1 fL 81-99 [facility] Mean corpuscular hemoglobin (MCH) determinationOrdered By: Todd Velasquez on 12-10-2024 MCH (RBC) [Entitic mass] 28.9 pg 27.0-32.0 [facility] Mean corpuscular hemoglobin concentration (MCHC) determinationOrdered By: Todd Velasquez on 12-10-2024 MCHC (RBC) [Mass/Vol] 32.5 g/dL 32-36 [facility] Mean platelet volume determi nationOrdered By: Todd Velasquez on 12-10-2024 Platelet mean volume (Bld) [Entitic vol] 11.9 fL 6.2-12.0 [facility] Platelet countOrdered By: Whitley on 12-10-2024 Platelets (Bld) [#/Vol] 177 10*3/uL 150-450 [facility] RBC Auto (Bld) [#/Vol]Ordere d By: Todd Velasquez on 12-10-2024 RBC (Bld) [#/Vol] 3.49 10*6/uL Low 4.2-5.4 [facility] Serum globulin measurementOr dered By: Todd Velasquez on 12-10-2024 Globulin (S) [Mass/Vol] 2.7 g/dL 2.2-4.2 [facility] Serum glucose measurement (m ass/volume)Ordered By: Todd Velasquez on 12-10-2024 Glucose [Mass/Vol] 92 mg/dL 70-99 [facility] Serum or plasma alanine ignacio otransferase (ALT) measurementOrdered By: Todd Velasquez on 12-10-2024 ALT [Catalytic activity/Vol] 14 U/L <35 [facility] Serum or plasma albumin jacob urement (mass/volume)Ordered By: Todd Velasquez on 12-10-2024 Albumin [Mass/Vol] 3.6 g/dL 3.4-4.8 [facility] Serum or plasma albumin/glob ulin mass ratioOrdered By: Todd Velasquez on 12-10-2024 Albumin/Globulin [Mass ratio] 1.3 {ratio} 0.9-2.4 [facility] Serum or plasma alkaline phillip sphatase measurementOrdered By: Todd Velasquez on 12-10-2024 ALP [Catalytic activity/Vol] 118 U/L High 35-104 [facility] Serum or plasma anion gap de termination (moles/volume)Ordered By: Todd Velasquez on 12-10-2024 Anion gap [Moles/Vol] 11 mmol/L 5-15 [facility] Serum or plasma calcium jacob urement (mass/volume)Ordered By: Todd Velasquez on 12-10-2024 Calcium [Mass/Vol] 8.9 mg/dL 7.6-11.0 [facility] Serum or plasma creatinine m easurement (moles/volume)Ordered By: Todd Velasquez on 12-10-2024 Creatinine [Moles/Vol] 0.6 mg/dL 0.6-1.0 [facility] Serum or plasma potassium me asurementOrdered By: Todd Velasquez on 12-10-2024 Potassium [Moles/Vol] 4.1 mmol/L 3.3-5.1 [facility] Serum or plasma sodium measu rement (moles/volume)Ordered By: Todd Velasquez on 12-10-2024 Sodium [Moles/Vol] 140 mmol/L 133-145 [facility] Serum or plasma urea nitroge n measurement (mass/volume)Ordered By: Todd Velasquez on 12-10-2024 Urea nitrogen [Mass/Vol] 11 mg/dL 4- [facility] Total proteinOrdered By: Ignacia Velasquez on 12-10-2024 Protein [Mass/Vol] 6.3 g/dL 5.9-8.4 [facility] White blood cell (WBC) count Ordered By: Todd Velasquez on 12-10-2024 WBC (Bld) [#/Vol] 6.6 10*3/uL 4.4-11.0 [facility] 30on 12-08-2024 30 Problem: Knowledge [...] Nutritional Intake Outcome: Progressing Normal [facility] [id number] 12-08-2024 [id number] Next Site of Care Admission Date: 12/03/2024 06:35 PM Patient Name: KATHERYN CHINO Location: [facility] [id number] A Date of : 1945 -------- Placement Information -------- Referral Type:Fpc/SNF - Return Referral ID:[id number] Provider Name:[facility], [facility]. Address 1:[address] [facility] [facility] Address 2: City:[place] Selection Factors:Returning to Facility State:[facility] [id number] MAR & Discharge med list transmitted to SNF Return - [facility] via [employer] per TCC request. Electronically signed by NARGIS Mccain [facility] [phone] Transport requested in Roundtrip. Awaiting time confirmation. Confirmed pickup time of 3:00 by transport Tee[employer]by at phone number . Location of facility drop off is [facility]. Facility notified via [employer], Martine Glasgow notified on secure chat. Normal [facility] [id number] Pt is stable for DC to return to [facility]. [employer] tasked to arrange transport and to send DC notes/MAR to SNF. Transport arranged for 3:00 today. Pt's brother called, Danny [phone], updates given. Normal [facility] BASIC METABOLIC PANELon 02-2 Anion gap [Moles/Vol] 6 mmol/L Normal 3-13 [facility] Comment on above: Performed By: #### L [id number], [id number] #### Sunglass Clip Attacher: JACKI MANCILLA ([phone]) [facility] [address] [place] [address] Calcium [Mass/Vol] 8.7 mg/dL Low 8.8-10.0 [facility] Comment on above: Performed By: #### L AB239, [id number] #### Sunglass Clip Attacher: JACKI MANCILLA ([phone]) [facility] ([facility]) [address] [place] [address] [place] Chloride [Moles/Vol] 108 mmol/L High 98-107 [facility] Comment on above: Performed By: #### L AB239, [id number] #### Sunglass Clip Attacher: JACKI MANCILLA ([phone]) [facility] ([facility]) [address] [place] [address] [place] CO2 [Moles/Vol] 26 mmol/L Normal 23-31 [facility] Comment on above: Performed By: #### L AB239, [id number] #### Sunglass Clip Attacher: JACKI [id number]) [facility]) [address] [place] [address] Creatinine [Mass/Vol] 0.64 mg/dL Normal 0.57-1.11 [facility] Comment on above: Performed By: #### L AB239, [id number] #### Sunglass Clip Attacher: JACKI [id number]) [facility] [address] [place] [address] GLOMERULAR FILTRATION RATE ML/MIN/1.73 SQ M.PREDICTED >90.0 Normal >60.0 [facility] Comment on above: Result Comment: Calc ulation based on the Chronic Kidney Disease Epidemiology Collaboration (CKD-EPI) equation refit without adjustment for race Performed By: #### Ailyn ARANGO239, [id number] #### Sunglass Clip Attacher: JACKI MANCILLA ([phone]) [facility] [address] [place] [address] Glucose [Mass/Vol] 87 mg/dL Normal 82-115 [facility] Comment on above: Performed By: #### Ailyn ALMEIDA, [id number] #### Sunglass Clip Attacher: JACKI MANCILLA ([phone]) [facility]) [address] [place] [address] Potassium [Moles/Vol] 3.9 mmol/L Normal 3.5-5.1 [facility] Comment on above: Result Comment: [facility] potassium values may be up to 0.5 mmol/L lower than serum values. Performed By: #### Ailyn ARANGO239, [id number] #### Sunglass Clip Attacher: JACKI MANCILLA ([phone]) [facility]) [address] [place] [address] Sodium [Moles/Vol] 140 mmol/L Normal 136-145 [facility] Comment on above: Performed By: #### Ailyn AB239, [id number] #### Sunglass Clip Attacher: JACKI MANCILLA ([phone]) [facility]) [address] [place] [address] [place] Urea nitrogen [Mass/Vol] 10 mg/dL Normal 9-23 [facility] Comment on above: Performed By: #### L AB239, [id number] #### Sunglass Clip Attacher: JACKI MANCILLA ([phone]) [facility]) [address] [place] [address] Bacteria identified Cx Nom ( Bld)on 12-08-2024 Interpretation and review of laboratory results Normal [facility] Blood Collection Sit e: Left Forearm [facility] Blood Collection Sit e: Left Hand [facility] Basic metabolic 1998 panelon 12-08-2024 Anion gap [Moles/Vol] 6 mmol/L 3 - 13 mmol/L [facility] Calcium [Mass/Vol] 8.7 mg/dL Low 8.8 - 10. 0 mg/dL [facility] Chloride [Moles/Vol] 108 mmol/L High 98 - 10 7 mmol/L [facility] CO2 [Moles/Vol] 26 mmol/L 23 - 31 mmol/L [facility] Creatinine [Mass/Vol] 0.64 mg/dL 0.57 - 1.11 mg/dL [facility] GFR/1.73 sq M.predicted (S/P/Bld) [Vol rate/Area] - PINF [facility] Comment on above: Calculation based on the Chronic Kidney Disease Epidemiology Collaboration (CKD-EPI) equation refit without adjustment for race Glucose [Mass/Vol] 87 mg/dL 82 - 115 mg/dL [facility] Interpretation and review of laboratory results Abnormal [facility] Potassium [Moles/Vol] 3.9 mmol/L 3.5 - 5.1 mmol/L [facility] Comment on above: Plasma potassium radha ues may be up to 0.5 mmol/L lower than serum values. Sodium [Moles/Vol] 140 mmol/L 136 - 145 mmol/L [facility] Urea nitrogen [Mass/Vol] 10 mg/dL 9 - 23 mg/dL [facility] CBC W Auto Differential pane l (Bld)on 12-08-2024 Basophils (Bld) [#/Vol] 0 10*3/uL 0.0 - 0.2 10*3/uL [facility] Basophils/100 WBC (Bld) 0.5 % 0.0 - 2.0 % [facility] Eosinophils (Bld) [#/Vol] 0.1 10*3/uL 0.0 - 0.5 10*3/uL [facility] Eosinophils/100 WBC (Bld) 1.5 % 0.0 - 6.0 % [facility] Erythrocyte distribution width (RBC) [Ratio] 13.1 % 11.5 - 15.0 % [facility] Hematocrit (Bld) [Volume fraction] 30.8 % Low 35.0 - 47.0 % [facility] Hemoglobin (Bld) [Mass/Vol] 9.9 g/dL Low 11.7 - 16.0 g/dL [facility] mPura Immature granulocytes (Bld) [#/Vol] 0 10*3/uL NINF - 0.1 10*3/uL [facility] Immature granulocytes/100 WBC (Bld) 0.3 % 0.0 - 2.0 % [facility] Interpretation and review of laboratory results Abnormal [facility] Lymphocytes (Bld) [#/Vol] 2.1 10*3/uL 1.0 - 4.3 10*3/uL [facility] Lymphocytes/100 WBC (Bld) 35.7 % 15.0 - 45.0 % [facility] MCH (RBC) [Entitic mass] 28.7 pg 26. 0 - 34.0 pg [facility] MCHC (RBC) [Mass/Vol] 32.1 % 30.5 - 36.0 % [facility] MCV (RBC) [Entitic vol] 89.3 fL 77.0 - 99.0 fL [facility] Monocytes (Bld) [#/Vol] 0.5 10*3/uL 0.0 - 0.9 10*3/uL [facility] Monocytes/100 WBC (Bld) 9 % 5.0 - 13.0 % [facility] Neutrophils (Bld) [#/Vol] 3.1 10*3/uL 1.8 - 7.5 10*3/uL [facility] Neutrophils/100 WBC (Bld) 53 % 38.0 - 82.0 % [facility] Nucleated RBC/100 WBC (Bld) [Ratio] 0 % [facility] Platelet mean volume (Bld) [Entitic vol] 11.9 fL 9.0 - 12.7 fL [facility] Platelets (Bld) [#/Vol] 165 10*3/uL 140 - 440 10*3/uL [facility] RBC (Bld) [#/Vol] 3.45 10*6/uL Low 3.80 - 5.20 10*6/uL [facility] WBC (Bld) [#/Vol] 5.9 10*3/uL 3.6 - 10.7 10*3/uL [facility] CBC WITH AUTO DIFFERENTIALon 12-08-2024 Basophils (Bld) [#/Vol] 0.0 10*3/uL Normal 0.0-0.2 [facility] Comment on above: Performed By: #### L [id number] ####Sunglass Clip Attacher: JACKI MANCILLA ([phone])[facility])[address] [place] [address] Basophils/100 WBC (Bld) 0.5 % Normal 0.0-2.0 [facility] Comment on above: Performed By: #### L [id number] ####Sunglass Clip Attacher: JACKI MANCILLA ([phone])[facility])[address] [place] [address] Eosinophils (Bld) [#/Vol] 0.1 10*3/uL Normal 0.0-0.5 [facility] Comment on above: Performed By: #### L [id number] ####Sunglass Clip Attacher: JACKI MANCILLA ([phone])[address] Eosinophils/100 WBC (Bld) 1.5 % Normal 0.0-6.0 [facility] Comment on above: Performed By: #### L [id number] ####Sunglass Clip Attacher: JACKI MANCILLA ([phone])[address] Erythrocyte distribution width (RBC) [Ratio] 13.1 % Normal 11.5-15.0 [facility] Comment on above: Performed By: #### L [id number] ####Sunglass Clip Attacher: JACKI MANCILLA ([phone])[facility])[address] [place] [address] Hematocrit (Bld) [Volume fraction] 30.8 % Low 35.0-47.0 [facility] Comment on above: Performed By: #### L [id number] ####Sunglass Clip Attacher: JACKI MANCILLA ([phone])[address] Hemoglobin (Bld) [Mass/Vol] 9.9 g/dL Low 11.7-16.0 [facility] Comment on above: Performed By: #### L [id number] ####Sunglass Clip Attacher: JACKI MANCILLA ([phone])[facility])[address] [place] [address] IMMATURE GRANS % 0.3 % Normal 0.0-2.0 [facility] Comment on above: Performed By: #### L [id number] ####Sunglass Clip Attacher: JACKI MANCILLA ([phone])[facility])[address] [place] [address] IMMATURE GRANS ABSOLUTE 0.0 10*3/uL Normal <0.1 [facility] Comment on above: Performed By: #### L [id number] ####Sunglass Clip Attacher: JACKI MANCILLA ([phone])[facility])[address] [place] [address] Lymphocytes (Bld) [#/Vol] 2.1 10*3/uL Normal 1.0-4.3 [facility] Comment on above: Performed By: #### L [id number] ####Sunglass Clip Attacher: JACKI MANCILLA ([phone])[facility])[address] [place] [address] Lymphocytes/100 WBC (Bld) 35.7 % Normal 15.0-45.0 [facility] Comment on above: Performed By: #### L [id number] ####Sunglass Clip Attacher: JACKI MANCILLA ([id number])[facility])[address] [place] [address] MCH (RBC) [Entitic mass] 28.7 pg Normal 26.0-34.0 [facility] Comment on above: Performed By: #### L [id number] ####Sunglass Clip Attacher: JACKI MANCILLA ([phone])[facility])[address] [place] [address] MCHC 32.1 % Normal 30.5-36.0 [facility] Comment on above: Performed By: #### L [id number] ####Sunglass Clip Attacher: JACKI MACNILLA ([phone])[facility])[address] [place] [address] MCV (RBC) [Entitic vol] 89.3 fL Normal 77.0-99.0 [facility] Comment on above: Performed By: #### L [id number] ####Sunglass Clip Attacher: JACKI MANCILLA ([phone])[facility])[address] [place] [address] Monocytes (Bld) [#/Vol] 0.5 10*3/uL Normal 0.0-0.9 [facility] Comment on above: Performed By: #### L [id number] ####Sunglass Clip Attacher: AJCKI MANCILLA ([phone])[facility])[address] [place] [address] Monocytes/100 WBC (Bld) 9.0 % Normal 5.0-13.0 [facility] Comment on above: Performed By: #### L [id number] ####Sunglass Clip Attacher: JACKI MANCILLA ([phone])[facility])[address] [place] [address] NEUTROPHILS ABSOLUTE 3.1 10*3/uL Normal 1.8-7.5 [facility] Comment on above: Performed By: #### L [id number] ####Sunglass Clip Attacher: JACKI MANCILLA ([phone])[facility])[address] [place] [address] Neutrophils/100 WBC (Bld) 53.0 % Normal 38.0-82.0 [facility] Comment on above: Performed By: #### L [id number] ####Sunglass Clip Attacher: JACKI MANCILLA ([phone])[facility])[address] [place] [address] NRBC 0.0 /100 WBCs Normal 0.0-2.0 [facility] Comment on above: Performed By: #### L [id number] ####Sunglass Clip Attacher: JACKI MANCILLA ([phone])[facility])[address] [place] [address] Platelet mean volume (Bld) [Entitic vol] 11.9 fL Normal 9.0-12.7 [facility] Comment on above: Performed By: #### L [id number] ####Sunglass Clip Attacher: JACKI MANCILLA ([id number])[facility])[address] [place] [address] Platelets (Bld) [#/Vol] 165 10*3/uL Normal 140-440 [facility] Comment on above: Performed By: #### L [id number] ####Sunglass Clip Attacher: JACKI MANCILLA ([phone])[facility])[address] [place] [address] RBC (Bld) [#/Vol] 3.45 10*6/uL Low 3.80-5.20 [facility] Comment on above: Performed By: #### L [id number] ####Sunglass Clip Attacher: JACKI MANCILLA ([id number])[facility])[address] [place] [address] WBC (Bld) [#/Vol] 5.9 10*3/uL Normal 3.6-10.7 [facility] Comment on above: Performed By: #### L [id number] ####Sunglass Clip Attacher: JACKI MANCILLA ([phone])[facility])[address] [place] [address] Laboratory - Microbiology an d Antimicrobial susceptibilityon 12-08-2024 Bacteria identified Cx Nom (Bld) No growth at 5 days [facility] 30on 12-07-2024 30 Problem: Knowledge Deficit Goal: [...] Anion gap [Moles/Vol] 7 mmol/L Normal 3-13 [facility] Comment on above: Performed By: #### L AB15 ####Sunglass Clip Attacher: JACKI MANCILLA ([phone])[facility])[address] [place] [address] Calcium [Mass/Vol] 9.0 mg/dL Normal 8.8-10.0 [facility] Comment on above: Performed By: #### L AB15 ####Sunglass Clip Attacher: JACKI MANCILLA ([phone])[facility] [place] [address] Chloride [Moles/Vol] 110 mmol/L High 98-107 [facility] Comment on above: Performed By: #### L AB15 ####Sunglass Clip Attacher: JACKI MANCILLA ([phone])[facility] ([facility])[address] [place] [address] CO2 [Moles/Vol] 25 mmol/L Normal 23-31 [facility] Comment on above: Performed By: #### L AB15 ####Sunglass Clip Attacher: JACKI MANCILLA ([phone])[facility] ([facility])[address] [place] [address] Creatinine [Mass/Vol] 0.64 mg/dL Normal 0.57-1.11 [facility] Comment on above: Performed By: #### L AB15 ####Sunglass Clip Attacher: JACKI MANCILLA ([phone])[facility])[address] [place] [address] GLOMERULAR FILTRATION RATE ML/MIN/1.73 SQ M.PREDICTED >90.0 Normal >60.0 [facility] Comment on above: Result Comment: Calc ulation based on the Chronic Kidney Disease Epidemiology Collaboration (CKD-EPI) equation refit without adjustment for race Performed By: #### L [id number] ####Sunglass Clip Attacher: JACKI MANCILLA ([phone])[facility] ([facility])[address] [place] [address] Glucose [Mass/Vol] 90 mg/dL Normal 82-115 [facility] Comment on above: Performed By: #### L [id number] ####Sunglass Clip Attacher: JACKI MANCILLA ([phone])[facility] ([facility])[address] [place] [address] Potassium [Moles/Vol] 3.9 mmol/L Normal 3.5-5.1 [facility] Comment on above: Result Comment: [facility] potassium values may be up to 0.5 mmol/L lower than serum values. Performed By: #### L [id number] ####Sunglass Clip Attacher: JACKI MANCILLA ([phone])[facility] ([facility])[address] [place] [address] Sodium [Moles/Vol] 142 mmol/L Normal 136-145 [facility] Comment on above: Performed By: #### L [id number] ####Sunglass Clip Attacher: JACKI MANCILLA ([phone])[facility] ([facility])[address] [place] [address] Urea nitrogen [Mass/Vol] 12 mg/dL Normal 9-23 [facility] Comment on above: Performed By: #### L [id number] ####Sunglass Clip Attacher: JACKI MANCILLA ([id number])[facility] [place] [address] Basic metabolic 1998 panelon 12-07-2024 Anion gap [Moles/Vol] 7 mmol/L 3 - 13 mmol/L [facility] Calcium [Mass/Vol] 9 mg/dL 8.8 - 10. 0 mg/dL [facility] Chloride [Moles/Vol] 110 mmol/L High 98 - 10 7 mmol/L [facility] CO2 [Moles/Vol] 25 mmol/L 23 - 31 mmol/L [facility] Creatinine [Mass/Vol] 0.64 mg/dL 0.57 - 1.11 mg/dL [facility] GFR/1.73 sq M.predicted (S/P/Bld) [Vol rate/Area] - PINF [facility] Comment on above: Calculation based on the Chronic Kidney Disease Epidemiology Collaboration (CKD-EPI) equation refit without adjustment for race Glucose [Mass/Vol] 90 mg/dL 82 - 115 mg/dL [facility] Interpretation and review of laboratory results Abnormal [facility] Potassium [Moles/Vol] 3.9 mmol/L 3.5 - 5.1 mmol/L [facility] Comment on above: Plasma potassium radha ues may be up to 0.5 mmol/L lower than serum values. Sodium [Moles/Vol] 142 mmol/L 136 - 145 mmol/L [facility] Urea nitrogen [Mass/Vol] 12 mg/dL 9 - 23 mg/dL [facility] CBC W Auto Differential pane l (Bld)on 12-07-2024 Basophils (Bld) [#/Vol] 0 10*3/uL 0.0 - 0.2 10*3/uL [facility] Basophils/100 WBC (Bld) 0.5 % 0.0 - 2.0 % [facility] Eosinophils (Bld) [#/Vol] 0.1 10*3/uL 0.0 - 0.5 10*3/uL [facility] Eosinophils/100 WBC (Bld) 1.2 % 0.0 - 6.0 % [facility] Erythrocyte distribution width (RBC) [Ratio] 13.2 % 11.5 - 15.0 % [facility] Hematocrit (Bld) [Volume fraction] 32.1 % Low 35.0 - 47.0 % [facility] Hemoglobin (Bld) [Mass/Vol] 10.4 g/dL Low 11.7 - 16.0 g/dL [facility] Immature granulocytes (Bld) [#/Vol] 0 10*3/uL NINF - 0.1 10*3/uL [facility] Immature granulocytes/100 WBC (Bld) 0.2 % 0.0 - 2.0 % [facility] Interpretation and review of laboratory results Abnormal [facility] Lymphocytes (Bld) [#/Vol] 2.1 10*3/uL 1.0 - 4.3 10*3/uL [facility] Lymphocytes/100 WBC (Bld) 35 % 15.0 - 45.0 % [facility] MCH (RBC) [Entitic mass] 28.1 pg 26. 0 - 34.0 pg [facility] MCHC (RBC) [Mass/Vol] 32.4 % 30.5 - 36.0 % [facility] MCV (RBC) [Entitic vol] 86.8 fL 77.0 - 99.0 fL [facility] Monocytes (Bld) [#/Vol] 0.6 10*3/uL 0.0 - 0.9 10*3/uL [facility] Monocytes/100 WBC (Bld) 10.1 % 5.0 - 13.0 % [facility] Neutrophils (Bld) [#/Vol] 3.2 10*3/uL 1.8 - 7.5 10*3/uL [facility] Neutrophils/100 WBC (Bld) 53 % 38.0 - 82.0 % [facility] Nucleated RBC/100 WBC (Bld) [Ratio] 0 % [facility] Platelet mean volume (Bld) [Entitic vol] 11.5 fL 9.0 - 12.7 fL [facility] Platelets (Bld) [#/Vol] 169 10*3/uL 140 - 440 10*3/uL [facility] RBC (Bld) [#/Vol] 3.7 10*6/uL Low 3.80 - 5.20 10*6/uL [facility] WBC (Bld) [#/Vol] 6.1 10*3/uL 3.6 - 10.7 10*3/uL [facility] CBC WITH AUTO DIFFERENTIALon 12-07-2024 Basophils (Bld) [#/Vol] 0.0 10*3/uL Normal 0.0-0.2 [facility] Comment on above: Performed By: #### L [id number] ####Sunglass Clip Attacher: JACKI MANCILLA ([phone])[facility] ([facility])[address] [place] [address] [place] Basophils/100 WBC (Bld) 0.5 % Normal 0.0-2.0 [facility] Comment on above: Performed By: #### L [id number] ####Sunglass Clip Attacher: JACKI MANCILLA ([phone])[facility] ([facility])[address] [place] [address] [place] Eosinophils (Bld) [#/Vol] 0.1 10*3/uL Normal 0.0-0.5 [facility] Comment on above: Performed By: #### L [id number] ####Sunglass Clip Attacher: JACKI [id number])[facility] ([facility])[address] [place] [address] [place] Eosinophils/100 WBC (Bld) 1.2 % Normal 0.0-6.0 [facility] Comment on above: Performed By: #### L [id number] ####Sunglass Clip Attacher: JACKI [id number])[facility])[address] [place] [address] Erythrocyte distribution width (RBC) [Ratio] 13.2 % Normal 11.5-15.0 [facility] Comment on above: Performed By: #### L [id number] ####Sunglass Clip Attacher: JACKI MANCILLA ([phone])[facility])[address] [place] [address] Hematocrit (Bld) [Volume fraction] 32.1 % Low 35.0-47.0 [facility] Comment on above: Performed By: #### L [id number] ####Sunglass Clip Attacher: JACKI MANCILLA ([phone])[facility])[address] [place] [address] Hemoglobin (Bld) [Mass/Vol] 10.4 g/dL Low 11.7-16.0 [facility] Comment on above: Performed By: #### L [id number] ####Sunglass Clip Attacher: JACKI MANCILLA ([phone])[facility])[address] [place] [address] IMMATURE GRANS % 0.2 % Normal 0.0-2.0 [facility] Comment on above: Performed By: #### L [id number] ####Sunglass Clip Attacher: JACKI MANCILLA ([phone])[facility])[address] [place] [address] IMMATURE GRANS ABSOLUTE 0.0 10*3/uL Normal <0.1 [facility] Comment on above: Performed By: #### L [id number] ####Sunglass Clip Attacher: JACKI MANCILLA ([phone])[facility])[address] [place] [address] Lymphocytes (Bld) [#/Vol] 2.1 10*3/uL Normal 1.0-4.3 [facility] Comment on above: Performed By: #### L [id number] ####Sunglass Clip Attacher: JACKI MANCILLA ([phone])[facility])[address] [place] [address] [place] Lymphocytes/100 WBC (Bld) 35.0 % Normal 15.0-45.0 [facility] Comment on above: Performed By: #### L [id number] ####Sunglass Clip Attacher: JACKI MANCILLA ([phone])[facility])[address] [place] [address] MCH (RBC) [Entitic mass] 28.1 pg Normal 26.0-34.0 [facility] Comment on above: Performed By: #### L [id number] ####Sunglass Clip Attacher: JACKI MANCILLA ([phone])[facility])[address] [place] [address] MCHC 32.4 % Normal 30.5-36.0 [facility] Comment on above: Performed By: #### L [id number] ####Sunglass Clip Attacher: JACKI MANCILLA ([phone])[facility])[address] [place] [address] MCV (RBC) [Entitic vol] 86.8 fL Normal 77.0-99.0 [facility] Comment on above: Performed By: #### L [id number] ####Sunglass Clip Attacher: JACKI MANCILLA ([phone])[facility])[address] [place] [address] Monocytes (Bld) [#/Vol] 0.6 10*3/uL Normal 0.0-0.9 [facility] Comment on above: Performed By: #### L [id number] ####Sunglass Clip Attacher: JACKI MANCILLA ([phone])[facility])[address] [place] [address] Monocytes/100 WBC (Bld) 10.1 % Normal 5.0-13.0 [facility] Comment on above: Performed By: #### L [id number] ####Sunglass Clip Attacher: JACKI MANCILLA ([id number])[facility])[address] [place] [address] NEUTROPHILS ABSOLUTE 3.2 10*3/uL Normal 1.8-7.5 [facility] Comment on above: Performed By: #### L [id number] ####Sunglass Clip Attacher: JACKI MANCILLA ([phone])[facility] ([facility])[address] [place] [address] Neutrophils/100 WBC (Bld) 53.0 % Normal 38.0-82.0 [facility] Comment on above: Performed By: #### L [id number] ####Sunglass Clip Attacher: JACKI MANCILLA ([phone])[facility] ([facility])[address] [place] [address] NRBC 0.0 /100 WBCs Normal 0.0-2.0 [facility] Comment on above: Performed By: #### L [id number] ####Sunglass Clip Attacher: JACKI MANCILLA ([phone])[facility])[address] [place] [address] Platelet mean volume (Bld) [Entitic vol] 11.5 fL Normal 9.0-12.7 [facility] Comment on above: Performed By: #### L [id number] ####Sunglass Clip Attacher: JACKI MANCILLA ([phone])[facility] ([facility])[address] [place] [address] Platelets (Bld) [#/Vol] 169 10*3/uL Normal 140-440 [facility] Comment on above: Performed By: #### L [id number] ####Sunglass Clip Attacher: JACKI MANCILLA ([id number])[facility])[address] [place] [address] RBC (Bld) [#/Vol] 3.70 10*6/uL Low 3.80-5.20 [facility] Comment on above: Performed By: #### L [id number] ####Sunglass Clip Attacher: JACKI MANCILLA ([id number])[facility])[address] [place] [address] WBC (Bld) [#/Vol] 6.1 10*3/uL Normal 3.6-10.7 [facility] Comment on above: Performed By: #### L [id number] ####Sunglass Clip Attacher: JACKI MANCILLA ([phone])[facility] ([facility])[address] [place] [address] 30on 12-06-2024 30 Problem: Knowledge Deficit Goal: [...] Anion gap [Moles/Vol] 7 mmol/L Normal 3-13 [facility] Comment on above: Performed By: #### L [id number] ####Sunglass Clip Attacher: JACKI MANCILLA ([phone])[facility] ([facility])[address] [place] [address] [place] Calcium [Mass/Vol] 8.8 mg/dL Normal 8.8-10.0 [facility] Comment on above: Performed By: #### L [id number] ####Sunglass Clip Attacher: JACKI MANCILLA ([phone])[facility] ([facility])[address] [place] [address] Chloride [Moles/Vol] 110 mmol/L High 98-107 [facility] Comment on above: Performed By: #### L [id number] ####Sunglass Clip Attacher: JACKI MANCILLA ([phone])[facility])[address] [place] [address] CO2 [Moles/Vol] 24 mmol/L Normal 23-31 [facility] Comment on above: Performed By: #### L [id number] ####Sunglass Clip Attacher: JACKI MANCILLA ([phone])[facility])[address] [place] [address] Creatinine [Mass/Vol] 0.64 mg/dL Normal 0.57-1.11 [facility] Comment on above: Performed By: #### L [id number] ####Sunglass Clip Attacher: JACKI MANCILLA ([phone])[facility])[address] [place] [address] GLOMERULAR FILTRATION RATE ML/MIN/1.73 SQ M.PREDICTED >90.0 Normal >60.0 [facility] Comment on above: Result Comment: Calc ulation based on the Chronic Kidney Disease Epidemiology Collaboration (CKD-EPI) equation refit without adjustment for race Performed By: #### L [id number] ####Sunglass Clip Attacher: JACKI MANCILLA ([phone])[facility])[address] [place] [address] Glucose [Mass/Vol] 87 mg/dL Normal 82-115 [facility] Comment on above: Performed By: #### L AB15 ####Sunglass Clip Attacher: JACKI MANCILLA ([phone])[facility])[address] [place] [address] Potassium [Moles/Vol] 3.7 mmol/L Normal 3.5-5.1 [facility] Comment on above: Result Comment: [facility] potassium values may be up to 0.5 mmol/L lower than serum values. Performed By: #### L AB15 ####Sunglass Clip Attacher: JACKI MANCILLA ([phone])[facility])[address] [place] [address] Sodium [Moles/Vol] 141 mmol/L Normal 136-145 [facility] Comment on above: Performed By: #### L [id number] ####Sunglass Clip Attacher: JACKI MANCILLA ([phone])[facility])[address] [place] [address] Urea nitrogen [Mass/Vol] 12 mg/dL Normal 9-23 [facility] Comment on above: Performed By: #### L [id number] ####Sunglass Clip Attacher: JACKI MANCILLA ([phone])[address] Bacteria identified Cx Nom ( U)Ordered By: Emily Ocampo on 12-06-2024 Interpretation and review of laboratory results Abnormal [facility] Basic metabolic 1998 panelon 12-06-2024 Anion gap [Moles/Vol] 7 mmol/L 3 - 13 mmol/L [facility] Calcium [Mass/Vol] 8.8 mg/dL 8.8 - 10. 0 mg/dL [facility] Chloride [Moles/Vol] 110 mmol/L High 98 - 10 7 mmol/L [facility] CO2 [Moles/Vol] 24 mmol/L 23 - 31 mmol/L [facility] Creatinine [Mass/Vol] 0.64 mg/dL 0.57 - 1.11 mg/dL [facility] GFR/1.73 sq M.predicted (S/P/Bld) [Vol rate/Area] - PINF [facility] Comment on above: Calculation based on the Chronic Kidney Disease Epidemiology Collaboration (CKD-EPI) equation refit without adjustment for race Glucose [Mass/Vol] 87 mg/dL 82 - 115 mg/dL [facility] Interpretation and review of laboratory results Abnormal [facility] Potassium [Moles/Vol] 3.7 mmol/L 3.5 - 5.1 mmol/L [facility] Comment on above: Plasma potassium radha ues may be up to 0.5 mmol/L lower than serum values. Sodium [Moles/Vol] 141 mmol/L 136 - 145 mmol/L [facility] Urea nitrogen [Mass/Vol] 12 mg/dL 9 - 23 mg/dL [facility] CBC W Auto Differential pane l (Bld)on 12-06-2024 Basophils (Bld) [#/Vol] 0 10*3/uL 0.0 - 0.2 10*3/uL [facility] Basophils/100 WBC (Bld) 0.6 % 0.0 - 2.0 % [facility] Eosinophils (Bld) [#/Vol] 0 10*3/uL 0.0 - 0.5 10*3/uL [facility] Eosinophils/100 WBC (Bld) 0.6 % 0.0 - 6.0 % [facility] Erythrocyte distribution width (RBC) [Ratio] 13 % 11.5 - 15.0 % [facility] Hematocrit (Bld) [Volume fraction] 33 % Low 35.0 - 47.0 % [facility] Hemoglobin (Bld) [Mass/Vol] 10.5 g/dL Low 11.7 - 16.0 g/dL [facility] Immature granulocytes (Bld) [#/Vol] 0 10*3/uL NINF - 0.1 10*3/uL [facility] Immature granulocytes/100 WBC (Bld) 0.2 % 0.0 - 2.0 % [facility] Interpretation and review of laboratory results Abnormal [facility] Lymphocytes (Bld) [#/Vol] 2 10*3/uL 1.0 - 4.3 10*3/uL [facility] Lymphocytes/100 WBC (Bld) 37 % 15.0 - 45.0 % [facility] MCH (RBC) [Entitic mass] 28.7 pg 26. 0 - 34.0 pg [facility] MCHC (RBC) [Mass/Vol] 31.8 % 30.5 - 36.0 % [facility] MCV (RBC) [Entitic vol] 90.2 fL 77.0 - 99.0 fL [facility] Monocytes (Bld) [#/Vol] 0.6 10*3/uL 0.0 - 0.9 10*3/uL [facility] Monocytes/100 WBC (Bld) 11 % 5.0 - 13.0 % [facility] Neutrophils (Bld) [#/Vol] 2.7 10*3/uL 1.8 - 7.5 10*3/uL [facility] Neutrophils/100 WBC (Bld) 50.6 % 38.0 - 82.0 % [facility] Nucleated RBC/100 WBC (Bld) [Ratio] 0 % [facility] mPura Platelet mean volume (Bld) [Entitic vol] 11.7 fL 9.0 - 12.7 fL [facility] Platelets (Bld) [#/Vol] 158 10*3/uL 140 - 440 10*3/uL [facility] RBC (Bld) [#/Vol] 3.66 10*6/uL Low 3.80 - 5.20 10*6/uL [facility] WBC (Bld) [#/Vol] 5.3 10*3/uL 3.6 - 10.7 10*3/uL [facility] CBC WITH AUTO DIFFERENTIALon 12-06-2024 Basophils (Bld) [#/Vol] 0.0 10*3/uL Normal 0.0-0.2 [facility] Comment on above: Performed By: #### L [id number], [id number] #### Sunglass Clip Attacher: JACKI MANCILLA ([id number]) [facility]) [address] [place] [address] Basophils/100 WBC (Bld) 0.6 % Normal 0.0-2.0 [facility] Comment on above: Performed By: #### Ailyn ARANGO239, [id number] #### Sunglass Clip Attacher: JACKI MANCILLA ([phone]) [facility] ([facility]) [address] [place] [address] Eosinophils (Bld) [#/Vol] 0.0 10*3/uL Normal 0.0-0.5 [facility] Comment on above: Performed By: #### Ailyn ARANGO239, [id number] #### Sunglass Clip Attacher: JACKI MANCILLA ([phone]) [facility]) [address] [place] [address] [place] Eosinophils/100 WBC (Bld) 0.6 % Normal 0.0-6.0 [facility] Comment on above: Performed By: #### Ailyn AB239, [id number] #### Sunglass Clip Attacher: JACKI MANCILLA ([phone]) [facility]) [address] [place] [address] Erythrocyte distribution width (RBC) [Ratio] 13.0 % Normal 11.5-15.0 [facility] Comment on above: Performed By: #### L AB239, [id number] #### Sunglass Clip Attacher: JACKI [id number]) [facility] [address] [place] [address] Hematocrit (Bld) [Volume fraction] 33.0 % Low 35.0-47.0 [facility] Comment on above: Performed By: #### L AB239, [id number] #### Sunglass Clip Attacher: JACKI MANCILLA ([phone]) [facility] ([facility]) [address] [place] [address] Hemoglobin (Bld) [Mass/Vol] 10.5 g/dL Low 11.7-16.0 [facility] Comment on above: Performed By: #### L AB239, [id number] #### Sunglass Clip Attacher: JACKI MANCILLA ([phone]) [facility] ([facility]) [address] [place] [address] IMMATURE GRANS % 0.2 % Normal 0.0-2.0 [facility] Comment on above: Performed By: #### L AB239, [id number] #### Sunglass Clip Attacher: JACKI MANCILLA ([phone]) [facility] ([facility]) [address] [place] [address] IMMATURE GRANS ABSOLUTE 0.0 10*3/uL Normal <0.1 [facility] Comment on above: Performed By: #### L AB239, [id number] #### Sunglass Clip Attacher: JACKI MANCILLA ([phone]) [facility]) [address] [place] [address] [place] Lymphocytes (Bld) [#/Vol] 2.0 10*3/uL Normal 1.0-4.3 [facility] Comment on above: Performed By: #### L AB239, [id number] #### Sunglass Clip Attacher: JACKI MANCILLA ([phone]) [facility]) [address] [place] [address] [place] Lymphocytes/100 WBC (Bld) 37.0 % Normal 15.0-45.0 [facility] Comment on above: Performed By: #### L AB239, [id number] #### Sunglass Clip Attacher: JACKI MANCILLA ([phone]) [facility] [address] [place] [address] MCH (RBC) [Entitic mass] 28.7 pg Normal 26.0-34.0 [facility] Comment on above: Performed By: #### Ailyn AB239, [id number] #### Sunglass Clip Attacher: JACKI MANCILLA ([phone]) [facility] ([facility]) [address] [place] [address] MCHC 31.8 % Normal 30.5-36.0 [facility] Comment on above: Performed By: #### Ailyn AB239, [id number] #### Sunglass Clip Attacher: JACKI MANCILLA ([phone]) [facility] ([facility]) [address] [place] [address] MCV (RBC) [Entitic vol] 90.2 fL Normal 77.0-99.0 [facility] Comment on above: Performed By: #### Ailyn ALMEIDA, [id number] #### Sunglass Clip Attacher: JACKI MANCILLA ([phone]) [facility] ([facility]) [address] [place] [address] Monocytes (Bld) [#/Vol] 0.6 10*3/uL Normal 0.0-0.9 [facility] Comment on above: Performed By: #### Ailyn AB239, [id number] #### Sunglass Clip Attacher: JACKI MANCILLA ([phone]) [facility] ([facility]) [address] [place] [address] Monocytes/100 WBC (Bld) 11.0 % Normal 5.0-13.0 [facility] Comment on above: Performed By: #### Ailyn AB239, [id number] #### Sunglass Clip Attacher: JACKI MANCILLA ([phone]) [facility] ([facility]) [address] [place] [address] NEUTROPHILS ABSOLUTE 2.7 10*3/uL Normal 1.8-7.5 [facility] Comment on above: Performed By: #### Ailyn AB239, [id number] #### Sunglass Clip Attacher: JACKI [id number]) [facility] ([facility]) [address] [place] [address] Neutrophils/100 WBC (Bld) 50.6 % Normal 38.0-82.0 [facility] Comment on above: Performed By: #### L AB239, [id number] #### Sunglass Clip Attacher: JACKI MANCILLA ([phone]) [facility] [address] [place] [address] NRBC 0.0 /100 WBCs Normal 0.0-2.0 [facility] Comment on above: Performed By: #### L AB239, [id number] #### Sunglass Clip Attacher: JACKI MANCILLA ([phone]) [facility] ([facility]) [address] [place] [address] Platelet mean volume (Bld) [Entitic vol] 11.7 fL Normal 9.0-12.7 [facility] Comment on above: Performed By: #### L [id number], [id number] #### Sunglass Clip Attacher: JACKI MANCILLA ([id number]) [facility] ([facility] [address] [place] [address] Platelets (Bld) [#/Vol] 158 10*3/uL Normal 140-440 [facility] Comment on above: Performed By: #### L [id number], [id number] #### Sunglass Clip Attacher: JACKI MANCILLA ([phone]) [facility] ([facility]) [address] [place] [address] RBC (Bld) [#/Vol] 3.66 10*6/uL Low 3.80-5.20 [facility] Comment on above: Performed By: #### L [id number], [id number] #### Sunglass Clip Attacher: JACKI MANCILLA ([phone]) [facility] ([facility]) [address] [place] [address] [place] WBC (Bld) [#/Vol] 5.3 10*3/uL Normal 3.6-10.7 [facility] Comment on above: Performed By: #### L [id number], [id number] #### Sunglass Clip Attacher: JACKI MANCILLA ([phone]) [facility] [facility] [address] Laboratory - Drug toxicology on 12-06-2024 Valproate [Mass/Vol] 20.4 ug/mL Low 50.0 - 100.0 mg/L [facility] Comment on above: Test Performed by Reji Chapin, [facility], [address] [place], [place] Jorge L Guerrero M.D., Ph.D., Director of Laboratories , CLIA [id number] Valproate Free [Mass/Vol] <4.0 Low 4.8 - 17.3 mg/L [facility] Comment on above: Note: Non-linear drug binding properties result in the fraction of Free Valproic Acid increasing as total drug increases. The free fraction may range from 5% to 25% for the total drug range of 30-160 mg/L. Laboratory - Microbiology an d Antimicrobial susceptibilityOrdered By: Emily cOampo on 12-06-2024 Bacteria identified Cx Nom (U) Normal urogenital devyn present [facility] Bacteria identified Cx Nom (U) >100,000 CFU/mL Escherichia coli Abnormal [facility] Bacteria identified Cx Nom (U) >100,000 CFU/mL Aerococcus urinae Abnormal [facility] Comment on above: Susceptibility testi ng not routinely performed except on isolates from blood culture. Aerococcus species are generally susceptible to beta-lactams. Resistance to sulfonamides is common in Aerococcus urinae. Providers should call the [facility] ([phone]) within 3 days if susceptibility testing is required. No Panel Informationon 12-06 Interpretation and review of laboratory results Abnormal [facility] 30on 12-05-2024 30 Problem: Knowledge Deficit Goal: Patient/family/caregiver demonstrates understanding of disease process, treatment plan, medications, and discharge instructions Outcome: Progressing Problem: Potential for Compromised Skin Integrity Goal: Skin Integrity is Maintained or Improved Outcome: Progressing Goal: Nutritional status is improving Outcome: Progressing Problem: Urinary Incontinence Goal: Perineal skin integrity is maintained or improved Outcome: Progressing Normal [facility] [id number] 12-05-2024 [id number] Pt adm from [facility] SNF/LTC, with Sepsis 2nd to UTI. Plan is to return. Facility will adm pt back skilled under Medicare. Called pt's brother Danny, was called and updated. CM to follow. Normal [facility] BASIC METABOLIC PANELon 02- Anion gap [Moles/Vol] 9 mmol/L Normal 3-13 [facility] Comment on above: Performed By: #### L AB15 #### Sunglass Clip Attacher: JACKI MANCILLA ([id number]) [facility]) [address] [place] [address] Calcium [Mass/Vol] 8.2 mg/dL Low 8.8-10.0 [facility] Comment on above: Performed By: #### L AB15 #### Sunglass Clip Attacher: JACKI MANCILLA ([phone]) [facility]) [address] [place] [address] Chloride [Moles/Vol] 110 mmol/L High 98-107 [facility] Comment on above: Performed By: #### L AB15 #### Sunglass Clip Attacher: JACKI MANCILLA ([id number]) [facility]) [address] [place] [address] CO2 [Moles/Vol] 22 mmol/L Low 23-31 [facility] Comment on above: Performed By: #### L AB15 #### Sunglass Clip Attacher: JACKI MANCILLA ([id number]) [facility]) [address] [place] [address] Creatinine [Mass/Vol] 0.68 mg/dL Normal 0.57-1.11 [facility] Comment on above: Performed By: #### L AB15 #### Sunglass Clip Attacher: JACKI MANCILLA ([id number]) [facility]) [address] [place] [address] [place] GLOMERULAR FILTRATION RATE ML/MIN/1.73 SQ M.PREDICTED 89.8 mL/min/1.73m*2 Normal >60.0 [facility] Comment on above: Result Comment: Calc ulation based on the Chronic Kidney Disease Epidemiology Collaboration (CKD-EPI) equation refit without adjustment for race Performed By: #### L AB15 #### Sunglass Clip Attacher: JACKI MANCILLA ([id number]) [facility]) [address] [place] [address] Glucose [Mass/Vol] 86 mg/dL Normal 82-115 [facility] Comment on above: Performed By: #### L AB15 #### Sunglass Clip Attacher: JACKI MANCILLA ([id number]) [facility]) [address] [place] [address] Potassium [Moles/Vol] 3.8 mmol/L Normal 3.5-5.1 [facility] Comment on above: Result Comment: [facility] potassium values may be up to 0.5 mmol/L lower than serum values. Performed By: #### L AB15 #### Sunglass Clip Attacher: JACKI MANCILLA ([id number]) [facility]) [address] [place] [address] Sodium [Moles/Vol] 141 mmol/L Normal 136-145 [facility] Comment on above: Performed By: #### L AB15 #### Sunglass Clip Attacher: JACKI MANCILLA ([id number]) [facility]) [address] [place] [address] Urea nitrogen [Mass/Vol] 13 mg/dL Normal 9-23 [facility] Comment on above: Performed By: #### L AB15 #### Sunglass Clip Attacher: JACKI MANCILLA ([id number]) [facility]) [address] [place] [address] Basic metabolic 1998 panelon 12-05-2024 Anion gap [Moles/Vol] 9 mmol/L 3 - 13 mmol/L [facility] Calcium [Mass/Vol] 8.2 mg/dL Low 8.8 - 10. 0 mg/dL [facility] Chloride [Moles/Vol] 110 mmol/L High 98 - 10 7 mmol/L [facility] CO2 [Moles/Vol] 22 mmol/L Low 23 - 31 mmol/L [facility] Creatinine [Mass/Vol] 0.68 mg/dL 0.57 - 1.11 mg/dL [facility] GFR/1.73 sq M.predicted (S/P/Bld) [Vol rate/Area] 89.8 mL/min - PINF [facility] Comment on above: Calculation based on the Chronic Kidney Disease Epidemiology Collaboration (CKD-EPI) equation refit without adjustment for race Glucose [Mass/Vol] 86 mg/dL 82 - 115 mg/dL [facility] Interpretation and review of laboratory results Abnormal [facility] Potassium [Moles/Vol] 3.8 mmol/L 3.5 - 5.1 mmol/L [facility] Comment on above: Plasma potassium radha ues may be up to 0.5 mmol/L lower than serum values. Sodium [Moles/Vol] 141 mmol/L 136 - 145 mmol/L [facility] Urea nitrogen [Mass/Vol] 13 mg/dL 9 - 23 mg/dL [facility] CBC W Auto Differential pane l (Bld)on 12-05-2024 Basophils (Bld) [#/Vol] 0 10*3/uL 0.0 - 0.2 10*3/uL [facility] Basophils/100 WBC (Bld) 0.6 % 0.0 - 2.0 % [facility] Eosinophils (Bld) [#/Vol] 0 10*3/uL 0.0 - 0.5 10*3/uL [facility] Eosinophils/100 WBC (Bld) 0.5 % 0.0 - 6.0 % [facility] Erythrocyte distribution width (RBC) [Ratio] 13.3 % 11.5 - 15.0 % [facility] Hematocrit (Bld) [Volume fraction] 30.4 % Low 35.0 - 47.0 % [facility] Hemoglobin (Bld) [Mass/Vol] 9.6 g/dL Low 11.7 - 16.0 g/dL [facility] Immature granulocytes (Bld) [#/Vol] 0 10*3/uL NINF - 0.1 10*3/uL [facility] Immature granulocytes/100 WBC (Bld) 0.3 % 0.0 - 2.0 % [facility] Interpretation and review of laboratory results Abnormal [facility] Lymphocytes (Bld) [#/Vol] 2 10*3/uL 1.0 - 4.3 10*3/uL [facility] Lymphocytes/100 WBC (Bld) 32.3 % 15.0 - 45.0 % [facility] MCH (RBC) [Entitic mass] 28.5 pg 26. 0 - 34.0 pg [facility] MCHC (RBC) [Mass/Vol] 31.6 % 30.5 - 36.0 % [facility] MCV (RBC) [Entitic vol] 90.2 fL 77.0 - 99.0 fL [facility] Monocytes (Bld) [#/Vol] 0.8 10*3/uL 0.0 - 0.9 10*3/uL [facility] Monocytes/100 WBC (Bld) 12.8 % 5.0 - 13.0 % [facility] Neutrophils (Bld) [#/Vol] 3.3 10*3/uL 1.8 - 7.5 10*3/uL [facility] Neutrophils/100 WBC (Bld) 53.5 % 38.0 - 82.0 % [facility] Nucleated RBC/100 WBC (Bld) [Ratio] 0 % [facility] Platelet mean volume (Bld) [Entitic vol] 11.7 fL 9.0 - 12.7 fL [facility] Platelets (Bld) [#/Vol] 148 10*3/uL 140 - 440 10*3/uL [facility] RBC (Bld) [#/Vol] 3.37 10*6/uL Low 3.80 - 5.20 10*6/uL [facility] WBC (Bld) [#/Vol] 6.2 10*3/uL 3.6 - 10.7 10*3/uL [facility] CBC WITH AUTO DIFFERENTIALon 12-05-2024 Basophils (Bld) [#/Vol] 0.0 10*3/uL Normal 0.0-0.2 [facility] Comment on above: Performed By: #### L [id number] ####Sunglass Clip Attacher: JACKI MANCILLA ([phone])[facility])[address] [place] [address] Basophils/100 WBC (Bld) 0.6 % Normal 0.0-2.0 [facility] Comment on above: Performed By: #### L [id number] ####Sunglass Clip Attacher: JACKI MANCILLA ([id number])[facility] ([facility])[address] [place] [address] Eosinophils (Bld) [#/Vol] 0.0 10*3/uL Normal 0.0-0.5 [facility] Comment on above: Performed By: #### L [id number] ####Sunglass Clip Attacher: JACKI MANCILLA ([id number])[facility])[address] [place] [address] Eosinophils/100 WBC (Bld) 0.5 % Normal 0.0-6.0 [facility] Comment on above: Performed By: #### L [id number] ####Sunglass Clip Attacher: JACKI MANCILLA ([id number])[address] Erythrocyte distribution width (RBC) [Ratio] 13.3 % Normal 11.5-15.0 [facility] Comment on above: Performed By: #### L [id number] ####Sunglass Clip Attacher: JACKI MANCILLA ([id number])[address] Hematocrit (Bld) [Volume fraction] 30.4 % Low 35.0-47.0 [facility] Comment on above: Performed By: #### L [id number] ####Sunglass Clip Attacher: JACKI MANCILLA ([id number])[address] Hemoglobin (Bld) [Mass/Vol] 9.6 g/dL Low 11.7-16.0 [facility] Comment on above: Performed By: #### L [id number] ####Sunglass Clip Attacher: JACKI MANCILLA ([id number])[facility])[address] [place] [address] IMMATURE GRANS % 0.3 % Normal 0.0-2.0 [facility] Comment on above: Performed By: #### L [id number] ####Sunglass Clip Attacher: JACKI MANCILLA ([id number])[address] IMMATURE GRANS ABSOLUTE 0.0 10*3/uL Normal <0.1 [facility] Comment on above: Performed By: #### L [id number] ####Sunglass Clip Attacher: JACKI MANCILLA ([id number])[facility])[address] [place] [address] Lymphocytes (Bld) [#/Vol] 2.0 10*3/uL Normal 1.0-4.3 [facility] Comment on above: Performed By: #### L [id number] ####Sunglass Clip Attacher: JACKI MANCILLA ([id number])[facility])[address] [place] [address] Lymphocytes/100 WBC (Bld) 32.3 % Normal 15.0-45.0 [facility] Comment on above: Performed By: #### L [id number] ####Sunglass Clip Attacher: JACKI MANCILLA ([phone])[facility])[address] [place] [address] MCH (RBC) [Entitic mass] 28.5 pg Normal 26.0-34.0 [facility] Comment on above: Performed By: #### L [id number] ####Sunglass Clip Attacher: JACKI MANCILLA ([id number])[facility])[address] [place] [address] MCHC 31.6 % Normal 30.5-36.0 [facility] Comment on above: Performed By: #### L [id number] ####Sunglass Clip Attacher: JACKI MANCILLA ([id number])[facility])[address] [place] [address] MCV (RBC) [Entitic vol] 90.2 fL Normal 77.0-99.0 [facility] Comment on above: Performed By: #### L [id number] ####Sunglass Clip Attacher: JACKI MANCILLA ([phone])[facility])[address] [place] [address] Monocytes (Bld) [#/Vol] 0.8 10*3/uL Normal 0.0-0.9 [facility] Comment on above: Performed By: #### L [id number] ####Sunglass Clip Attacher: JACKI MANCILLA ([id number])[facility])[address] [place] [address] Monocytes/100 WBC (Bld) 12.8 % Normal 5.0-13.0 [facility] Comment on above: Performed By: #### L [id number] ####Sunglass Clip Attacher: JACKI MANCILLA ([id number])[facility] ([facility])[address] [place] [address] NEUTROPHILS ABSOLUTE 3.3 10*3/uL Normal 1.8-7.5 [facility] Comment on above: Performed By: #### L [id number] ####Sunglass Clip Attacher: JACKI MANCILLA ([phone])[facility] ([facility])[address] [place] [address] Neutrophils/100 WBC (Bld) 53.5 % Normal 38.0-82.0 [facility] Comment on above: Performed By: #### L [id number] ####Sunglass Clip Attacher: JACKI MANCILLA ([id number])[facility] ([facility])[address] [place] [address] NRBC 0.0 /100 WBCs Normal 0.0-2.0 [facility] Comment on above: Performed By: #### L [id number] ####Sunglass Clip Attacher: JACKI MANCILLA ([id number])[facility] ([facility])[address] [place] [address] Platelet mean volume (Bld) [Entitic vol] 11.7 fL Normal 9.0-12.7 [facility] Comment on above: Performed By: #### L [id number] ####Sunglass Clip Attacher: JACKI MANCILLA ([phone])[facility] ([facility])[address] [place] [address] [place] Platelets (Bld) [#/Vol] 148 10*3/uL Normal 140-440 [facility] Comment on above: Performed By: #### L [id number] ####Sunglass Clip Attacher: JACKI MANCILLA ([phone])[facility] ([facility])[address] [place] [address] [place] RBC (Bld) [#/Vol] 3.37 10*6/uL Low 3.80-5.20 [facility] Comment on above: Performed By: #### L [id number] ####Sunglass Clip Attacher: JACKI GUTIERREZKathrine ([phone])[facility] ([facility])[address] [place] [address] WBC (Bld) [#/Vol] 6.2 10*3/uL Normal 3.6-10.7 [facility] Comment on above: Performed By: #### L [id number] ####Sunglass Clip Attacher: JACKI GUTIERREZKathrine ([id number])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 She met criteria for simple sepsis on admission. Neurology consulted for seizure management. Breakthrough seizure (witnessed 12/03) possibly 2/2 acute illness vs recent changes to AED regimen Idiopat (more content not included)... Normal [facility] 3012-04-2024 30 Problem: Knowledge Deficit Goal: Patient/family/caregiver demonstrates understanding of disease process, treatment plan, medications, and discharge instructions Outcome: Progressing Problem: Potential for Compromised Skin Integrity Goal: Skin Integrity is Maintained or Improved Outcome: Progressing Goal: Nutritional status is improving Outcome: Progressing Problem: Urinary Incontinence Goal: Perineal skin integrity is maintained or improved Outcome: Progressing Normal [facility] [id number] 12-04-2024 [id number] Pt discussed 12-04-24 during interdisciplinary rounds. Pt admitted from [facility] due to seizures. Pt has a history of seizure disorder. No needs anticipated but SW available as needs arise. Normal [facility] BASIC METABOLIC PANELon 11-16 Anion gap [Moles/Vol] 6 mmol/L Normal 3-13 [facility] Comment on above: Performed By: #### L AB24, LAB15 ####Sunglass Clip Attacher: JACKI MANCILLA ([id number])[facility])[address] [place] [address] Calcium [Mass/Vol] 7.8 mg/dL Low 8.8-10.0 [facility] Comment on above: Performed By: #### L AB24, LAB15 ####Sunglass Clip Attacher: JACKI MANCILLA ([id number])[facility] ([facility])[address] [place] [address] Chloride [Moles/Vol] 113 mmol/L High 98-107 [facility] Comment on above: Performed By: #### L AB24, LAB15 ####Sunglass Clip Attacher: JACKI MANCILLA ([id number])[facility])[address] [place] [address] CO2 [Moles/Vol] 21 mmol/L Low 23-31 [facility] Comment on above: Performed By: #### L AB24, LAB15 ####Sunglass Clip Attacher: JACKI MANCILLA ([id number])[facility])[address] [place] [address] Creatinine [Mass/Vol] 0.73 mg/dL Normal 0.57-1.11 [facility] Comment on above: Performed By: #### L AB24, LAB15 ####Sunglass Clip Attacher: JACKI MANCILLA ([phone])[facility])[address] [place] [address] [place] GLOMERULAR FILTRATION RATE ML/MIN/1.73 SQ M.PREDICTED 84.8 mL/min/1.73m*2 Normal >60.0 [facility] Comment on above: Result Comment: Calc ulation based on the Chronic Kidney Disease Epidemiology Collaboration (CKD-EPI) equation refit without adjustment for race Performed By: #### L AB24, LAB15 ####Sunglass Clip Attacher: JACKI MANCILLA ([id number])[facility])[address] [place] [address] Glucose [Mass/Vol] 97 mg/dL Normal 82-115 [facility] Comment on above: Performed By: #### L AB24, LAB15 ####Sunglass Clip Attacher: JACKI MANCILLA ([id number])[facility])[address] [place] [address] Potassium [Moles/Vol] 3.8 mmol/L Normal 3.5-5.1 [facility] Comment on above: Result Comment: [facility] potassium values may be up to 0.5 mmol/L lower than serum values. Performed By: #### L AB24, LAB15 ####Sunglass Clip Attacher: JACKI MANCILLA ([phone])[facility] ([facility])[address] [place] [address] Sodium [Moles/Vol] 140 mmol/L Normal 136-145 [facility] Comment on above: Performed By: #### L AB24, LAB15 ####Sunglass Clip Attacher: JACKI MANCILLA ([id number])[facility])[address] [place] [address] Urea nitrogen [Mass/Vol] 21 mg/dL Normal 9-23 [facility] Comment on above: Performed By: #### L AB24, LAB15 ####Sunglass Clip Attacher: JACKI MANCILLA ([id number])[facility])[address] [place] [address] Basic metabolic 1998 panelon 12-04-2024 Anion gap [Moles/Vol] 6 mmol/L 3 - 13 mmol/L [facility] Calcium [Mass/Vol] 7.8 mg/dL Low 8.8 - 10. 0 mg/dL [facility] Chloride [Moles/Vol] 113 mmol/L High 98 - 10 7 mmol/L [facility] CO2 [Moles/Vol] 21 mmol/L Low 23 - 31 mmol/L [facility] Creatinine [Mass/Vol] 0.73 mg/dL 0.57 - 1.11 mg/dL [facility] GFR/1.73 sq M.predicted (S/P/Bld) [Vol rate/Area] 84.8 mL/min - PINF [facility] Comment on above: Calculation based on the Chronic Kidney Disease Epidemiology Collaboration (CKD-EPI) equation refit without adjustment for race Glucose [Mass/Vol] 97 mg/dL 82 - 115 mg/dL [facility] Interpretation and review of laboratory results Abnormal [facility] Potassium [Moles/Vol] 3.8 mmol/L 3.5 - 5.1 mmol/L [facility] Comment on above: Plasma potassium radha ues may be up to 0.5 mmol/L lower than serum values. Sodium [Moles/Vol] 140 mmol/L 136 - 145 mmol/L [facility] Urea nitrogen [Mass/Vol] 21 mg/dL 9 - 23 mg/dL [facility] CBC W Auto Differential pane l (Bld)on 12-04-2024 Basophils (Bld) [#/Vol] 0 10*3/uL 0.0 - 0.2 10*3/uL [facility] Basophils/100 WBC (Bld) 0.3 % 0.0 - 2.0 % [facility] Eosinophils (Bld) [#/Vol] 0 10*3/uL 0.0 - 0.5 10*3/uL [facility] Eosinophils/100 WBC (Bld) 0 % 0.0 - 6.0 % [facility] Erythrocyte distribution width (RBC) [Ratio] 13.4 % 11.5 - 15.0 % [facility] Hematocrit (Bld) [Volume fraction] 31.7 % Low 35.0 - 47.0 % [facility] Hemoglobin (Bld) [Mass/Vol] 10.3 g/dL Low 11.7 - 16.0 g/dL [facility] Immature granulocytes (Bld) [#/Vol] 0 10*3/uL NINF - 0.1 10*3/uL [facility] Immature granulocytes/100 WBC (Bld) 0.4 % 0.0 - 2.0 % [facility] Interpretation and review of laboratory results Abnormal [facility] Lymphocytes (Bld) [#/Vol] 1.2 10*3/uL 1.0 - 4.3 10*3/uL [facility] Lymphocytes/100 WBC (Bld) 16.4 % 15.0 - 45.0 % [facility] MCH (RBC) [Entitic mass] 28.9 pg 26. 0 - 34.0 pg [facility] MCHC (RBC) [Mass/Vol] 32.5 % 30.5 - 36.0 % [facility] MCV (RBC) [Entitic vol] 89 fL 77.0 - 99.0 fL [facility] Monocytes (Bld) [#/Vol] 0.8 10*3/uL 0.0 - 0.9 10*3/uL [facility] Monocytes/100 WBC (Bld) 10.5 % 5.0 - 13.0 % [facility] Neutrophils (Bld) [#/Vol] 5.4 10*3/uL 1.8 - 7.5 10*3/uL [facility] Neutrophils/100 WBC (Bld) 72.4 % 38.0 - 82.0 % [facility] Nucleated RBC/100 WBC (Bld) [Ratio] 0 % [facility] Platelet mean volume (Bld) [Entitic vol] 11.9 fL 9.0 - 12.7 fL [facility] Platelets (Bld) [#/Vol] 150 10*3/uL 140 - 440 10*3/uL [facility] RBC (Bld) [#/Vol] 3.56 10*6/uL Low 3.80 - 5.20 10*6/uL [facility] WBC (Bld) [#/Vol] 7.5 10*3/uL 3.6 - 10.7 10*3/uL [facility] CBC WITH AUTO DIFFERENTIALon 12-04-2024 Basophils (Bld) [#/Vol] 0.0 10*3/uL Normal 0.0-0.2 [facility] Comment on above: Performed By: #### L [id number] ####Sunglass Clip Attacher: JACKI MANCILLA ([id number])[facility] ([address] Basophils/100 WBC (Bld) 0.3 % Normal 0.0-2.0 [facility] Comment on above: Performed By: #### L [id number] ####Sunglass Clip Attacher: JACKI MANCILLA ([id number])[facility])[address] [place] [address] Eosinophils (Bld) [#/Vol] 0.0 10*3/uL Normal 0.0-0.5 [facility] Comment on above: Performed By: #### L [id number] ####Sunglass Clip Attacher: JACKI MANCILLA ([id number])[facility])[address] [place] [address] Eosinophils/100 WBC (Bld) 0.0 % Normal 0.0-6.0 [facility] Comment on above: Performed By: #### L [id number] ####Sunglass Clip Attacher: JACKI MANCILLA ([phone])[address] Erythrocyte distribution width (RBC) [Ratio] 13.4 % Normal 11.5-15.0 [facility] Comment on above: Performed By: #### L [id number] ####Sunglass Clip Attacher: JACKI MANCILLA ([phone])[address] Hematocrit (Bld) [Volume fraction] 31.7 % Low 35.0-47.0 [facility] Comment on above: Performed By: #### L [id number] ####Sunglass Clip Attacher: JACKI MANCILLA ([phone])[facility])[address] [place] [address] Hemoglobin (Bld) [Mass/Vol] 10.3 g/dL Low 11.7-16.0 [facility] Comment on above: Performed By: #### L [id number] ####Sunglass Clip Attacher: JACKI MANCILLA ([id number])[facility])[address] [place] [address] IMMATURE GRANS % 0.4 % Normal 0.0-2.0 [facility] Comment on above: Performed By: #### L [id number] ####Sunglass Clip Attacher: JACKI [id number])[facility])[address] [place] [address] IMMATURE GRANS ABSOLUTE 0.0 10*3/uL Normal <0.1 [facility] Comment on above: Performed By: #### L [id number] ####Sunglass Clip Attacher: JACKI MANCILLA ([phone])[facility])[address] [place] [address] Lymphocytes (Bld) [#/Vol] 1.2 10*3/uL Normal 1.0-4.3 [facility] Comment on above: Performed By: #### L [id number] ####Sunglass Clip Attacher: JACKI MANCILLA ([phone])[address] Lymphocytes/100 WBC (Bld) 16.4 % Normal 15.0-45.0 [facility] Comment on above: Performed By: #### L [id number] ####Sunglass Clip Attacher: JACKI MANCILLA ([phone])[facility])[address] [place] [address] MCH (RBC) [Entitic mass] 28.9 pg Normal 26.0-34.0 [facility] Comment on above: Performed By: #### L [id number] ####Sunglass Clip Attacher: JACKI MANCILLA ([phone])[facility])[address] [place] [address] MCHC 32.5 % Normal 30.5-36.0 [facility] Comment on above: Performed By: #### L [id number] ####Sunglass Clip Attacher: JACKI MANCILLA ([phone])[facility])[address] [place] [address] MCV (RBC) [Entitic vol] 89.0 fL Normal 77.0-99.0 [facility] Comment on above: Performed By: #### L [id number] ####Sunglass Clip Attacher: JACKI MANCILLA ([phone])[facility])[address] [place] [address] [place] Monocytes (Bld) [#/Vol] 0.8 10*3/uL Normal 0.0-0.9 [facility] Comment on above: Performed By: #### L [id number] ####Sunglass Clip Attacher: JACKI MANCILLA ([phone])[facility] ([facility])[address] [place] [address] Monocytes/100 WBC (Bld) 10.5 % Normal 5.0-13.0 [facility] Comment on above: Performed By: #### L [id number] ####Sunglass Clip Attacher: JACKI MANCILLA ([phone])[facility] ([facility])[address] [place] [address] NEUTROPHILS ABSOLUTE 5.4 10*3/uL Normal 1.8-7.5 [facility] Comment on above: Performed By: #### L [id number] ####Sunglass Clip Attacher: JACKI MANCILLA ([phone])[facility] ([facility])[address] [place] [address] Neutrophils/100 WBC (Bld) 72.4 % Normal 38.0-82.0 [facility] Comment on above: Performed By: #### L [id number] ####Sunglass Clip Attacher: JACKI MANCILLA ([phone])[facility] ([facility])[address] [place] [address] NRBC 0.0 /100 WBCs Normal 0.0-2.0 [facility] Comment on above: Performed By: #### L [id number] ####Sunglass Clip Attacher: JACKI MANCILLA ([phone])[facility] ([facility])[address] [place] [address] Platelet mean volume (Bld) [Entitic vol] 11.9 fL Normal 9.0-12.7 [facility] Comment on above: Performed By: #### L [id number] ####Sunglass Clip Attacher: JACKI MANCILLA ([phone])[facility] ([facility])[address] [place] [address] [place] Platelets (Bld) [#/Vol] 150 10*3/uL Normal 140-440 [facility] Comment on above: Performed By: #### L [id number] ####Sunglass Clip Attacher: JACKI MANCILLA ([phone])[facility])[address] [place] [address] RBC (Bld) [#/Vol] 3.56 10*6/uL Low 3.80-5.20 [facility] Comment on above: Performed By: #### L [id number] ####Sunglass Clip Attacher: JACKI MANCILLA ([phone])[facility] ([facility])[address] [place] [address] WBC (Bld) [#/Vol] 7.5 10*3/uL Normal 3.6-10.7 [facility] Comment on above: Performed By: #### L [id number] ####Sunglass Clip Attacher: JACKI BRENDAKathrine ([phone])[facility])[address] [place] [address] CT HEAD WO IV CONTRASTon CT HEAD [...] Electronically Signed Date/Time: 12/04/2024 2:43 PM EST [facility] Patient Name: KATHERYN YIP : 1945 [...] included paranasal sinuses and orbits are normal. [facility] Arpit Russo M D - 12/04/2024 [...] Electronically Signed Date/Time: 12/04/2024 2:43 PM EST [facility] mPura Radiology Study observation (narrative) [facility] mPura CT Head WO contrastOrdered B y: Arpit Russo on 12-04-2024 [employer] Work Phone: Consulton 12-04-2024 Consult ---- -------- [...] tremors sensation: intact to light touch cerebellar: vcznax-bh-vtkj slow but intact gait: deferred secondary to [...] known history of generalized epilepsy-EEG unlikely to plant changer at this time -Some confusion about [...] or meningismus -Will continue to monitor for PERSONNEL RECORDS CLERK infectious symptoms I spent total time 80 minutes reviewing previous notes, test results, and face to face with the patient discussing the diagnosis and importance of compliance with the treatment plan as well as documenting on the day of the visit. -------- General Neurology Consult Patient: Katheryn Chino Date of : 1945 Acct: [id number] PCP: Orville Mendoza DO Date of Admission: 12/03/2024 Date of Service: Pt seen/examined on 12/04/24 Chief Complaint: Breakthrough seizure History Of Present Illness: 79 y.o. female with past medical history significant for idiopathic generalized epilepsy (since childhood), cerebellar atrophy (on MRI in 2018, thought to be 2/2 chronic Dilantin use), wheelchair dependence, chronic dysarthria, hypothyroidism who presented [facility] to [facility] 12/03 with complaint of breakthrough seizure. Patient follows with Dr. Jimenez from [facility] and has been having generalized tonic-clonic seiz (more content not included)... Normal [facility] LACOSAMIDE ([facility]KR [facility])on [facility] LACOSAMIDE <0.5 Normal [facility] Comment on above: Result Comment: (Not e) Expected concentrations of Lacosamide in patients receiving recommended daily dosages: Up to 15.0 mcg/mL.Toxic range not established. This test was developed and its analytical performance characteristics have been determined by [employer]. It has not been cleared or approved by the FDA. This assay has been validated pursuant to the CLIA regulations and is used for clinical purposes. TANYA [employer] [place] [address] [place] [address],[address] [place] [address] Jeff Gutiérrez MD, PhD Test performed by [employer] [facility] [place] [address] [address] [place], [place] [address] Sunglass Clip Attacher: Jeff Gutiérrez MD, PhD Test Reported by Kamini Álvarezy, [employer] [facility], [address] [place], [place] Jorge L Guerrero M.D., Ph.D., Director of Laboratories , CLIA [id number] Performed By: #### L [id number] #### [facility] (AMDBEAKER) [address] [place], [place] [facility] Laboratory - Drug toxicology on 12-04-2024 Valproate [Mass/Vol] 18 ug/mL Low 50 - 12 5 ug/mL [facility] No Panel Informationon 12-04 Interpretation and review of laboratory results Abnormal [facility] Toxicity is seen at concentrations >175 ug/mL [facility] Nursing Noteon 12-04-2024 Nursing Note Wound Care consulted for Pressure Injury Prevention. Pt's Melo score= 16 on 12/04 Pt's pressure points assessed. Pt sitting in chair. OT present in room and assisted pt with standing for assessment of buttocks/coccyx. Pt's Heels, Buttocks/coccyx, Back, Elbows, Occiput and ears all intact. Prevention Measures in place, including: Wayne sheet with pillows, Foam heel protectors (obtained [...] Denise Hair D.O. Division of Hospitalist Medicine [facility] Normal [facility] Respiratory pathogens DNA an d RNA panel RUTH+non-probe (Nph)on 12-04-2024 Adenovirus Not detected Not Detected [facility] B. pertussis DNA RUTH+probe Ql (Unsp spec) Not detected Not Detected [facility] Bordetella parapertussis Not detected Not Detected [facility] Chlamydia pneumoniae Not detected Not Detected [facility] Coronavirus 229E Not detected Not Detected [facility] Coronavirus HKU1 Not detected Not Detected [facility] Coronavirus NL63 Not detected Not Detected [facility] Coronavirus OC43 Not detected Not Detected [facility] FLUAV RNA RUTH+non-probe Ql (Nph) Not detected Not Detected [facility] FLUBV RNA RUTH+non-probe Ql (Nph) Not detected Not Detected [facility] Human Metapneumovirus Not detected Not Detected [facility] Human Rhinovirus/Enterovirus Not detected Not Detected [facility] Interpretation and review of laboratory results Normal [facility] Mycoplasma pneumoniae Not detected Not Detected [facility] Parainfluenza 1 Not detected Not Detected [facility] Parainfluenza 2 Not detected Not Detected [facility] Parainfluenza 3 Not detected Not Detected [facility] Parainfluenza 4 Not detected Not Detected [facility] Respiratory Syncytial Virus Not detected Not Detected [facility] SARS-CoV-2 (COVID-19) RNA RTUH+non-probe Ql (Nph) Not detected Not Detected [facility] Methodology: Multipl ex PCR [facility] VALPROIC ACID TOTALon 2024 VALPROIC ACID 18 ug/mL Low 50-125 [facility] Comment on above: Result Comment: RD Chu COMMENTS: Toxicity is seen at concentrations >175 ug/mL Performed By: #### L AB24, LAB15 ####Sunglass Clip Attacher: JACKI MANCILLA ([phone])[facility] ([facility] VALPROIC ACID TOTAL AND FREE ([facility]KR [facility])on 12-04-2024 [facility] VALPROIC ACID 20.4 mg/L Low 50.0-100.0 [facility] Comment on above: Result Comment: Test Performed by Reji Álvarez, Henri Loza [facility], [address] [place] [address] Jorge L Guerrero M.D., Ph.D., Director of Laboratories , [facility] [id number] Performed By: #### L AB172 ####[facility] ([place])[address] [place], [place] [facility] VALPROIC ACID, FREE <4.0 Low 4.8-17.3 [facility] Comment on above: Result Comment: Note: Non-linear drug binding properties result in the fraction of Free Valproic Acid increasing as total drug increases. The free fraction may range from 5% to 25% for the total drug range of 30-160 mg/L. Performed By: #### L AB172 ####[facility] (iHeart[employer]AKER)[address] [place], [place] [facility] Absolute lymphocyte countOrd ered By: Damir Mckee on 12-03-2024 Lymphocytes Auto (Unsp spec) [#/Vol] 0.66 10*3/uL Low 0.83-4.51 [facility] Absolute neutrophil countOrd ered By: Damir Ledesmao on 12-03-2024 Neutrophils (Bld) [#/Vol] 12.4 10*3/uL High 2.0-7.7 [facility] Automated lymphocyte count a s percentage of total leukocytesOrdered By: Damir Mckee on 12-03-2024 Lymphocytes/100 WBC Auto (Unsp spec) 4.8 % Low 19-41 [facility] BLOOD CULTUREon 12-03-2024 Bacteria identified Cx Nom (Bld) BLOOD CULTURE Reference No growth at 5 days ORDER COMMENTS: Blood Collection Site: Left Forearm [ S = SUSCEPTIBLE R = RESISTANT I = INTERMEDIATE S-DD = Susceptible-dose dependent NS = Non-susceptible NO = No Interpretation ] Normal [facility] Comment on above: Performed By: #### L AB239, [id number] #### Sunglass Clip Attacher: JACKI MANCILLA ([phone]) [facility] ([facility]) [address] [place] [address] Bacteria identified Cx Nom (Bld) BLOOD CULTURE Reference No growth at 5 days ORDER COMMENTS: Blood Collection Site: Left Hand [ S = SUSCEPTIBLE R = RESISTANT I = INTERMEDIATE S-DD = Susceptible-dose dependent NS = Non-susceptible NO = No Interpretation ] Normal [facility] Comment on above: Performed By: #### L [id number] ####Sunglass Clip Attacher: JACKI MANCILLA ([phone])[facility] ([facility])[address] [place] [address] Basic Metabolic Profile (BMP )on 12-03-2024 BUN/CRE 29.9 RATIO High 10-20 [facility] Comment on above: Performed By: #### L 500.2500, L501.7700, L501.8100 ####[facility] [address] [place], [address] [place],Total 7.4 mg/dL Low 8.5-10.1 [facility] Comment on above: Performed By: #### L 500.2500, L501.7700, L501.8100 ####[facility] [address] [place], [address] Chloride [Moles/Vol] 114 mmol/L High 98-107 [facility] Comment on above: Performed By: #### L 500.2500, L501.7700, L501.8100 ####[facility] [address] [place], [address] CO2 [Moles/Vol] 21.0 mmol/L Normal 21.0-32.0 [facility] Comment on above: Performed By: #### L 500.2500, L501.7700, L501.8100 ####[facility] [address] [place], [address] Creatinine [Mass/Vol] 0.64 mg/dL Normal 0.55-1.02 [facility] Comment on above: Result Comment: The validity of the calculated GFR GFRAA in patients over 70 years has not been determined. Clinical correlation is essential. Performed By: #### L 500.2500, L501.7700, L501.8100 ####[facility] [address] [place], [address] ECRCL 63.94 ml/min Normal [facility] Comment on above: Performed By: #### L 500.2500, L501.7700, L501.8100 ####[facility] [address] [place], [address] EST GFR - AA 116 mL/min Normal >60 [facility] Comment on above: Result Comment: Afri can [place] GFR Calc Performed By: #### L 500.2500, L501.7700, L501.8100 ####[facility] [address] [place], [address] GAP 8 Normal 5-15 [facility] Comment on above: Performed By: #### L 500.2500, L501.7700, L501.8100 ####[facility] [address] [place], [address] GFR/1.73 sq M.predicted among non-blacks MDRD (S/P/Bld) [Vol rate/Area] 96 mL/min/{1.73_m2} Normal >60 [facility] Comment on above: Result Comment: Non- GFR Calc Performed By: #### L 500.2500, L501.7700, L501.8100 ####[facility] [address] [place], [address] Glucose [Mass/Vol] 141 mg/dL High 74-106 [facility] Comment on above: Result Comment: Fast ing Glucose result greater than or equal to 126 mg/dL suggests DIABETES MELLITUS per A.D.A. criteria. Performed By: #### L 500.2500, L501.7700, L501.8100 ####[facility] [address] [place], [address] Potassium [Moles/Vol] 3.3 mmol/L Low 3.5-5.1 [facility] Comment on above: Performed By: #### L 500.2500, L501.7700, L501.8100 ####[facility] [address] [place], [address] Sodium [Moles/Vol] 143 mmol/L Normal 136-145 [facility] Comment on above: Performed By: #### L 500.2500, L501.7700, L501.8100 ####[facility] [address] [place], [address] Urea nitrogen [Mass/Vol] 19 mg/dL High 7-18 [facility] Comment on above: Performed By: #### L 500.2500, L501.7700, L501.8100 ####[facility] [address] [place], [address] Basophil percentageOrdered B y: Damir Mckee on 12-03-2024 Basophils/100 WBC (Bld) 0.3 % 0-1 [facility] Blood urea nitrogen (BUN)/cr eatinine ratioOrdered By: Damir Mckee on 12-03-2024 Urea nitrogen/Creatinine [Mass ratio] 29.9 mg/mg High 10- [facility] CBC W Auto Differential pane l (Bld)Ordered By: Charley Traore on 12-03-2024 Basophils (Bld) [#/Vol] 0 10*3/uL 0.0 - 0.2 10*3/uL [facility] Basophils/100 WBC (Bld) 0.1 % 0.0 - 2.0 % [facility] Eosinophils (Bld) [#/Vol] 0 10*3/uL 0.0 - 0.5 10*3/uL [facility] Eosinophils/100 WBC (Bld) 0 % 0.0 - 6.0 % [facility] Erythrocyte distribution width (RBC) [Ratio] 13.2 % 11.5 - 15.0 % [facility] Hematocrit (Bld) [Volume fraction] 36.9 % 35.0 - 47.0 % [facility] Hemoglobin (Bld) [Mass/Vol] 11.6 g/dL Low 11.7 - 16.0 g/dL [facility] Immature granulocytes (Bld) [#/Vol] 0.1 10*3/uL High NINF - 0.1 10*3/uL [facility] Immature granulocytes/100 WBC (Bld) 0.5 % 0.0 - 2.0 % [facility] Interpretation and review of laboratory results Abnormal [facility] Lymphocytes (Bld) [#/Vol] 0.6 10*3/uL Low 1.0 - 4.3 10*3/uL [facility] Lymphocytes/100 WBC (Bld) 5.8 % Low 15.0 - 45.0 % [facility] MCH (RBC) [Entitic mass] 28.2 pg 26. 0 - 34.0 pg [facility] MCHC (RBC) [Mass/Vol] 31.4 % 30.5 - 36.0 % [facility] MCV (RBC) [Entitic vol] 89.6 fL 77.0 - 99.0 fL [facility] Monocytes (Bld) [#/Vol] 0.6 10*3/uL 0.0 - 0.9 10*3/uL [facility] Monocytes/100 WBC (Bld) 5.9 % 5.0 - 13.0 % [facility] Neutrophils (Bld) [#/Vol] 9.6 10*3/uL High 1.8 - 7.5 10*3/uL [facility] Neutrophils/100 WBC (Bld) 87.7 % High 38.0 - 82.0 % [facility] Nucleated RBC/100 WBC (Bld) [Ratio] 0 % [facility] Platelet mean volume (Bld) [Entitic vol] 11.7 fL 9.0 - 12.7 fL [facility] Platelets (Bld) [#/Vol] 202 10*3/uL 140 - 440 10*3/uL [facility] RBC (Bld) [#/Vol] 4.12 10*6/uL 3.80 - 5.20 10*6/uL [facility] WBC (Bld) [#/Vol] 10.9 10*3/uL High 3.6 - 10.7 10*3/uL [facility] CBC W/Diff, Automatedon 11-15 Absolute Lymph 0.66 X10 3/uL Low 0.83-4.51 [facility] Comment on above: Performed By: #### L 500.2500, L100.0500 #### [facility] [address] [place], [place], [id number] Absolute Neut 12.4 X10 3/uL High 2.0-7.7 [facility] Comment on above: Performed By: #### L 500.2500, L100.0500 #### [facility] [address] [place], [address] Basophils/100 WBC (Bld) 0.3 % Normal 0-1 [facility] Comment on above: Performed By: #### L 500.2500, L100.0500 #### [facility] [address] [place], [address] Eosinophils/100 WBC (Bld) 0.0 % Normal 0-5 [facility] Comment on above: Performed By: #### L 500.2500, L100.0500 #### [facility] [address] [place], [address] Erythrocyte distribution width (RBC) [Ratio] 13.2 % Normal 11.6-14.6 [facility] Comment on above: Performed By: #### L 500.2500, L100.0500 #### [facility] [address] [place], [address] Hematocrit (Bld) [Volume fraction] 36.5 % Low 37-47 [facility] Comment on above: Performed By: #### L 500.2500, L100.0500 #### [facility] [address] [place], [address] Hemoglobin (Bld) [Mass/Vol] 11.9 g/dL Low 12.0-15.0 [facility] Comment on above: Performed By: #### L 500.2500, L100.0500 #### [facility] [address] [place], [address] IG% 0.400 Normal 0.0-0.9 [facility] Comment on above: Result Comment: IG% - Immature Granulocytes (promyelocytes, myelocytes and metamyelocytes) > 1% indicates that a LEFT SHIFT is Present. Performed By: #### L 500.2500, L100.0500 #### [facility] [address] [place], [address] Lymphocytes/100 WBC (Bld) 4.8 % Low 19-41 [facility] Comment on above: Performed By: #### L 500.2500, L100.0500 #### [facility] [address] [place], [address] MCH (RBC) [Entitic mass] 29.1 pg Normal 27.0-32.0 [facility] Comment on above: Performed By: #### L 500.2500, L100.0500 #### [facility] [address] [place], [address] MCHC (RBC) [Mass/Vol] 32.6 g/dL Normal 32-36 [facility] Comment on above: Performed By: #### L 500.2500, L100.0500 #### [facility] [address] [place], [address] MCV (RBC) [Entitic vol] 89.2 fL Normal 81-99 [facility] Comment on above: Performed By: #### L 500.2500, L100.0500 #### [facility] [address] [place], [address] Monocytes/100 WBC (Bld) 4.8 % Normal 0-10 [facility] Comment on above: Performed By: #### L 500.2500, L100.0500 #### [facility] [address] [place], [address] Neutrophils/100 WBC (Bld) 89.7 % High 47-70 [facility] Comment on above: Performed By: #### L 500.2500, L100.0500 #### [facility] [address] [place], [address] Nucleated RBC (Bld) [#/Vol] 0 10*3/uL Normal 0-5 [facility] Comment on above: Performed By: #### L 500.2500, L100.0500 #### [facility] [address] [place], [address] Platelet mean volume (Bld) [Entitic vol] 11.9 fL Normal 6.2-12.0 [facility] Comment on above: Performed By: #### L 500.2500, L100.0500 #### [facility] [address] [place], [address] Platelets (Bld) [#/Vol] 199 10*3/uL Normal 150-450 [facility] Comment on above: Performed By: #### L 500.2500, L100.0500 #### [facility] [address] [place], [address] RBC (Bld) [#/Vol] 4.09 10*6/uL Low 4.2-5.4 [facility] Comment on above: Performed By: #### L 500.2500, L100.0500 #### [facility] [address] [place], [address] RDW SD 43.0 fl Normal 35.1-43.9 [facility] Comment on above: Performed By: #### L 500.2500, L100.0500 #### [facility] [address] [place], [address] WBC (Bld) [#/Vol] 13.8 10*3/uL High 4.4-11.0 [facility] Comment on above: Performed By: #### L 500.2500, L100.0500 #### [facility] [address] [place], [address] CBC WITH AUTO DIFFERENTIALon 12-03-2024 Basophils (Bld) [#/Vol] 0.0 10*3/uL Normal 0.0-0.2 [facility] Comment on above: Performed By: #### L [id number] ####[employer] Attacher: JACKI MANCILLA ([phone])[facility] ([facility])[address] [place] [address] Basophils/100 WBC (Bld) 0.1 % Normal 0.0-2.0 [facility] Comment on above: Performed By: #### L [id number] ####[employer] Attacher: JACKI MANCILLA ([phone])[facility])[address] [place] [address] Eosinophils (Bld) [#/Vol] 0.0 10*3/uL Normal 0.0-0.5 [facility] Comment on above: Performed By: #### L [id number] ####[employer] Attacher: JACKI MANCILLA ([phone])[facility])[address] [place] [address] Eosinophils/100 WBC (Bld) 0.0 % Normal 0.0-6.0 [facility] Comment on above: Performed By: #### L [id number] ####[employer] Attacher: JACKI MANCILLA ([phone])[facility] ([facility])[address] [place] [address] Erythrocyte distribution width (RBC) [Ratio] 13.2 % Normal 11.5-15.0 [facility] Comment on above: Performed By: #### L [id number] ####[employer] Attacher: JACKI MANCILLA ([phone])[address] Hematocrit (Bld) [Volume fraction] 36.9 % Normal 35.0-47.0 [facility] Comment on above: Performed By: #### L [id number] ####[employer] Attacher: JACKI MANCILLA ([phone])[facility])[address] [place] [address] Hemoglobin (Bld) [Mass/Vol] 11.6 g/dL Low 11.7-16.0 [facility] Comment on above: Performed By: #### L [id number] ####[employer] Attacher: JACKI MANCILLA ([phone])[facility])[address] [place] [address] IMMATURE GRANS % 0.5 % Normal 0.0-2.0 [facility] Comment on above: Performed By: #### L [id number] ####Sunglass Clip Attacher: JACKI MANCILLA ([phone])[facility])[address] [place] [address] IMMATURE GRANS ABSOLUTE 0.1 10*3/uL High <0.1 [facility] Comment on above: Performed By: #### L [id number] ####Sunglass Clip Attacher: JACKI MANCILLA ([phone])[facility])[address] [place] [address] Lymphocytes (Bld) [#/Vol] 0.6 10*3/uL Low 1.0-4.3 [facility] Comment on above: Performed By: #### L [id number] ####Sunglass Clip Attacher: JACKI MANCILLA ([id number])[facility])[address] [place] [address] Lymphocytes/100 WBC (Bld) 5.8 % Low 15.0-45.0 [facility] Comment on above: Performed By: #### L [id number] ####Sunglass Clip Attacher: JACKI MANCILLA ([phone])[facility])[address] [place] [address] MCH (RBC) [Entitic mass] 28.2 pg Normal 26.0-34.0 [facility] Comment on above: Performed By: #### L [id number] ####Sunglass Clip Attacher: JACKI MANCILLA ([phone])[facility])[address] [place] [address] MCHC 31.4 % Normal 30.5-36.0 [facility] Comment on above: Performed By: #### L [id number] ####Sunglass Clip Attacher: JACKI MANCILLA ([id number])[facility])[address] [place] [address] MCV (RBC) [Entitic vol] 89.6 fL Normal 77.0-99.0 [facility] Comment on above: Performed By: #### L [id number] ####Sunglass Clip Attacher: JACKI MANCILLA ([phone])[facility] ([facility])[address] [place] [address] Monocytes (Bld) [#/Vol] 0.6 10*3/uL Normal 0.0-0.9 [facility] Comment on above: Performed By: #### L [id number] ####Sunglass Clip Attacher: JACKI MANCILLA ([phone])[facility] ([facility])[address] [place] [address] Monocytes/100 WBC (Bld) 5.9 % Normal 5.0-13.0 [facility] Comment on above: Performed By: #### L [id number] ####Sunglass Clip Attacher: JACKI MANCILLA ([phone])[facility] ([facility])[address] [place] [address] NEUTROPHILS ABSOLUTE 9.6 10*3/uL High 1.8-7.5 [facility] Comment on above: Performed By: #### L [id number] ####Sunglass Clip Attacher: JACKI MANCILLA ([phone])[facility] ([facility])[address] [place] [address] Neutrophils/100 WBC (Bld) 87.7 % High 38.0-82.0 [facility] Comment on above: Performed By: #### L [id number] ####Sunglass Clip Attacher: JACKI MANCILLA ([id number])[facility])[address] [place] [address] NRBC 0.0 /100 WBCs Normal 0.0-2.0 [facility] Comment on above: Performed By: #### L [id number] ####Sunglass Clip Attacher: JACKI MANCILLA ([phone])[facility])[address] [place] [address] Platelet mean volume (Bld) [Entitic vol] 11.7 fL Normal 9.0-12.7 [facility] Comment on above: Performed By: #### L [id number] ####Sunglass Clip Attacher: JACKI [id number])[facility] ([facility])[address] [place] [address] Platelets (Bld) [#/Vol] 202 10*3/uL Normal 140-440 [facility] Comment on above: Performed By: #### L [id number] ####Sunglass Clip Attacher: JACKI MANCILLA ([id number])[facility])[address] [place] [address] RBC (Bld) [#/Vol] 4.12 10*6/uL Normal 3.80-5.20 [facility] Comment on above: Performed By: #### L [id number] ####Sunglass Clip Attacher: JACKI MANCILLA ([id number])[facility])[address] [place] [address] WBC (Bld) [#/Vol] 10.9 10*3/uL High 3.6-10.7 [facility] Comment on above: Performed By: #### L [id number] ####Sunglass Clip Attacher: JACKI MANCILLA ([id number])[facility] ([facility])[address] [place] [address] Kuldip 12-03-2024 DWAYNEN Telephone (LYNN) -------- KATHERYN CHINO ([id number]) 1945 F Date Time Provider Department 12/03/24 JAYANT JIMENEZ During your visit today, we recorded the following information about you: Franchesca Arana 12/03/2024 2:43 PM Signed Received patients seizure monitoring sheet from [facility]. Uploaded to Silvia Abernathy RN 12/09/2024 2:45 PM Addendum Seizure Call - spoke with nurse Katia. [facility] PH: [phone] FAX : [phone] Last Visit: 09/24/24 Next Visit: 01/15/25 Date [...] Other: patient was taken to local ED, [facility]. The patient will be transferred to [...] from the hospital. Forwarded to MARIO 2 [place] MEGA Christianson Kelly, APRN.DWAYNE 12/03/2024 4:11 PM Signed If no clear triggers will likely need to adjust doses. Would consider further increasing LCM to 150 mg BID Artis Hamilton APRN.Silvia Willis RN 12/04/2024 1:10 PM Signed Called the patient's facility. Left message for the nurse to call back regarding recommendations. Silvia MEGA Franklin Christina M, RN 12/04/2024 1:26 PM Signed Spoke with nurse Inman at [facility]. Informed her of recommendations to increase LCM to 150mg BID, with read back. Nurse requests rx to be faxed to the facility. [facility] PH: [phone] FAX : [phone] MEGA Christianson Kelly, APRN.ICT SALES ASSISTANT 12/04/2024 6:15 PM Signed The following approved medication requests have been transmitted electronically. Requested Prescriptions Signed Prescriptions Disp Refills lacosamide (VIMPAT) 150 mg tab 180 tablet 1 Sig: Take 1 tablet by mouth two times a day for 180 days. Authorizing Provider: ARTIS HAMILTON APRN.Silvia Willis RN 12/05/2024 8:58 AM Signed Updated LCM 150mg BID rx faxed via [facility]ax to [facility]. Confirmation received. MEGA Christianson Nancy 12/08/2024 1:33 PM Signed Rosita anthony/ [facility] LCM clarification and seizure activity; she can be reached at [phone] - ask for Katheryn's nurse Silvia Rogers [...] to have LCM levels drawn next week NOV 01/15/25 Forwarded to MARIO 2 for recommendations. [...] Christianson Kelly, (more content not included)... Normal [facility] COMPLETE URINALYSISon 2024 BACTERIA (#/HPF) IN URINE Loaded Abnormal Negative [facility] Comment on above: Performed By: #### L [id number], [id number] #### Sunglass Clip Attacher: JACKI [id number]) [facility]) [address] [place] [address] BILIRUBIN, TOTAL PRESENCE IN URINE Negative Normal Negative [facility] Comment on above: Performed By: #### L AB239, [id number] #### Sunglass Clip Attacher: JACKI MANCILLA ([id number]) [facility]) [address] [place] [address] Clarity (U) Extra Turbid Abnormal Clear [facility] Comment on above: Performed By: #### L AB239, [id number] #### Sunglass Clip Attacher: JACKI [id number]) [facility]) [address] [place] [address] Color (U) Yellow Normal Lt. Yellow [facility] Comment on above: Performed By: #### L AB239, [id number] #### Sunglass Clip Attacher: JACKI [id number]) [facility]) [address] [place] [address] GLUCOSE (MG/DL) IN URINE Normal Normal Nor mal (<70) [facility] Comment on above: Performed By: #### L AB239, [id number] #### Sunglass Clip Attacher: JACKI [id number]) [facility] [address] [place] [address] HEMOGLOBIN PRESENCE IN URINE 0.06 mg/dL Abnormal Negative [facility] Comment on above: Performed By: #### L AB239, [id number] #### Sunglass Clip Attacher: JACKI MANCILLA ([phone]) [facility] [address] [place] [address] HYALINE CASTS (#/LPF) IN URINE SEDIMENT BY MICROSCOPY Negative Normal Negative [facility] Comment on above: Performed By: #### L AB239, [id number] #### Sunglass Clip Attacher: JACKI MANCILLA ([phone]) [facility] ([facility]) [address] [place] [address] Ketones Ql (U) Trace Abnormal Negative [facility] Comment on above: Performed By: #### L AB239, [id number] #### Sunglass Clip Attacher: JACKI MANCILLA ([id number]) [facility] ([facility]) [address] [place] [address] LEUKOCYTE ESTERASE PRESENCE IN URINE BY TEST STRIP 500 James/uL Abnormal Negative [facility] Comment on above: Performed By: #### L AB239, [id number] #### Sunglass Clip Attacher: JACKI MANCILLA ([phone]) [facility] ([facility]) [address] [place] [address] MUCUS (#/LPF) IN URINE SEDIMENT Few Normal Negative [facility] Comment on above: Performed By: #### L AB239, [id number] #### Sunglass Clip Attacher: JACKI MANCILLA ([id number]) [facility] ([facility]) [address] [place] [address] NITRITE PRESENCE IN URINE Negative Normal Negative [facility] Comment on above: Performed By: #### L AB239, [id number] #### Sunglass Clip Attacher: JACKI MANCILLA ([id number]) [facility]) [address] [place] [address] NON-SQUAMOUS EPITHELIAL (#/HPF) IN URINE 3-5 Abnormal Negative [facility] Comment on above: Performed By: #### L AB239, [id number] #### Sunglass Clip Attacher: JACKI MANCILLA ([phone]) [facility] [address] [place] [address] pH (U) 6.0 [pH] Normal 5.0-8.0 [facility] Comment on above: Performed By: #### L AB239, [id number] #### Sunglass Clip Attacher: JACKI MANCILLA ([phone]) [facility] [address] [place] [address] Protein (U) [Mass/Vol] 100 mg/dL Abnormal Negative [facility] Comment on above: Performed By: #### L AB239, [id number] #### Sunglass Clip Attacher: JACKI MANCILLA ([phone]) [facility] ([facility]) [address] [place] [address] RBC (#/HPF) IN URINE SEDIMENT 11-25 Abnormal 0-2 [facility] Comment on above: Performed By: #### Ailyn AB239, [id number] #### Sunglass Clip Attacher: JACKI MANCILLA ([phone]) [facility] [address] [place] [address] Specific gravity (U) [Rel density] >1.030 High 1.005-1.03 0 [facility] Comment on above: Performed By: #### L AB239, [id number] #### Sunglass Clip Attacher: JACKI MANCILLA ([phone]) [facility] ([facility]) [address] [place] [address] SQUAMOUS EPITHELIAL CELLS (#/HPF) IN URINE SEDIMENT 11-25 Abnormal 3-5 [facility] Comment on above: Performed By: #### L AB239, [id number] #### Sunglass Clip Attacher: JACKI MANCILLA ([phone]) [facility] ([facility]) [address] [place] [address] [place] UROBILINOGEN (MG/DL) IN URINE Normal Normal Normal (0-1) [facility] Comment on above: Performed By: #### L AB239, [id number] #### Sunglass Clip Attacher: JACKI MANCILLA ([phone]) [facility] ([facility]) [address] [place] [address] WBC (LEUKOCYTE) (#/HPF) IN URINE SEDIMENT >100 Abnormal 0-5 [facility] Comment on above: Performed By: #### L AB239, [id number] #### Sunglass Clip Attacher: JACKI MANCILLA ([phone]) [facility] ([facility]) [address] [place] [address] WBC (LEUKOCYTE) CLUMPS (#/HPF) IN URINE SEDIMENT Many Abnormal Negative [facility] Comment on above: Performed By: #### L AB239, [id number] #### Sunglass Clip Attacher: JACKI MANCILLA ([phone]) [facility] ([facility]) [address] [place] [address] COMPREHENSIVE METABOLIC PANE Scottie 12-03-2024 Albumin [Mass/Vol] 3.5 g/dL Normal 3.4-4.8 [facility] Comment on above: Performed By: #### L AB17 ####Sunglass Clip Attacher: JACKI MANCILLA ([phone])[facility] ([facility])[address] [place] [address] ALP [Catalytic activity/Vol] 90 U/L Normal 40-150 [facility] Comment on above: Performed By: #### L AB17 ####Sunglass Clip Attacher: JACKI MANCILLA ([phone])[facility] ([facility])[address] [place] [address] ALT [Catalytic activity/Vol] 14 U/L Normal <30 [facility] Comment on above: Performed By: #### L AB17 ####Sunglass Clip Attacher: JACKI MANCILLA ([phone])[facility])[address] [place] [address] Anion gap [Moles/Vol] 10 mmol/L Normal 3-13 [facility] Comment on above: Performed By: #### L AB17 ####Sunglass Clip Attacher: JACKI MANCILLA ([phone])[facility] ([facility])[address] [place] [address] AST [Catalytic activity/Vol] 31 U/L Normal <34 [facility] Comment on above: Performed By: #### L AB17 ####Sunglass Clip Attacher: JACKI MANCILLA ([phone])[facility] ([facility])[address] [place] [address] Bilirubin [Mass/Vol] 0.5 mg/dL Normal <1.2 [facility] Comment on above: Performed By: #### L AB17 ####Sunglass Clip Attacher: JACKI MANCILLA ([phone])[facility])[address] [place] [address] Calcium [Mass/Vol] 8.5 mg/dL Low 8.8-10.0 [facility] Comment on above: Performed By: #### L AB17 ####Sunglass Clip Attacher: JACKI MANCILLA ([phone])[facility])[address] [place] [address] Chloride [Moles/Vol] 109 mmol/L High 98-107 [facility] Comment on above: Performed By: #### L AB17 ####Sunglass Clip Attacher: JACKI MANCILLA ([phone])[facility] ([facility])[address] [place] [address] CO2 [Moles/Vol] 22 mmol/L Low 23-31 [facility] Comment on above: Performed By: #### L AB17 ####Sunglass Clip Attacher: JACKI MANCILLA ([phone])[facility])[address] [place] [address] Creatinine [Mass/Vol] 0.82 mg/dL Normal 0.57-1.11 [facility] Comment on above: Performed By: #### L AB17 ####Sunglass Clip Attacher: JACKI MANCILLA ([phone])[facility])[address] [place] [address] [place] GLOMERULAR FILTRATION RATE ML/MIN/1.73 SQ M.PREDICTED 73.8 mL/min/1.73m*2 Normal >60.0 [facility] Comment on above: Result Comment: Calc ulation based on the Chronic Kidney Disease Epidemiology Collaboration (CKD-EPI) equation refit without adjustment for race Performed By: #### L AB17 ####Sunglass Clip Attacher: JACKI MANCILLA ([phone])[facility] ([facility])[address] [place] [address] Glucose [Mass/Vol] 112 mg/dL Normal 82-115 [facility] Comment on above: Performed By: #### L AB17 ####Sunglass Clip Attacher: JACKI MANCILLA ([phone])[facility] ([facility])[address] [place] [address] Potassium [Moles/Vol] 4.1 mmol/L Normal 3.5-5.1 [facility] Comment on above: Result Comment: [facility] potassium values may be up to 0.5 mmol/L lower than serum values. Performed By: #### L AB17 ####Sunglass Clip Attacher: JACKI MANCILLA ([phone])[facility] ([facility])[address] [place] [address] Protein [Mass/Vol] 7.1 g/dL Normal 6.4-8.3 [facility] Comment on above: Performed By: #### L AB17 ####Sunglass Clip Attacher: JACKI MANCILLA ([phone])[facility] ([facility])[address] [place] [address] [place] Sodium [Moles/Vol] 141 mmol/L Normal 136-145 [facility] Comment on above: Performed By: #### L AB17 ####Sunglass Clip Attacher: JACKI MANCILLA ([phone])[facility])[address] [place] [address] Urea nitrogen [Mass/Vol] 23 mg/dL Normal 9-23 [facility] Comment on above: Performed By: #### L AB17 ####Sunglass Clip Attacher: JACKI MANCILLA ([phone])[facility])[address] [place] [address] CT ABDOMEN PELVIS W CONTRAST on 12-03-2024 [...] Electronically Signed Date/Time: 12/03/2024 9:33 PM EST [facility] Patient Name: KATHERYN YIP [...] inflamed, correlate for possible cystitis. Normal appendix. [facility] Wilber Christianson MD - 12/03/2024 Patient [...] Electronically Signed Date/Time: 12/03/2024 9:33 PM EST [employer] Radiology Study observation (narrative) [employer] CT Abdomen and Pelvis W cont rast IVOrdered By: Wilber Christianson on 12-03-2024 [employer] Work Phone: Carbon dioxide measurementOr dered By: Damir Mckee on 12-03-2024 CO2 [Moles/Vol] 21.0 mmol/L 21.0-32.0 [facility] Chest 1 View (Portable)on Chest 1 View (Portable) [facility] [address] [place] [place] [address] Chest 1 View (Portable) MR#: [id number] Acct: [id number] Name: KATHERYN CHINO Rep #: [id number] : 1945 F 79 From: Darwin grigsby MD PCP: Dr. Todd Velasquez Sr., DO Status: REG ER Study: Chest 1 View (Portable) Date of Exam: 12/03/24 Exam# [id number] Ordering Dr: Damir Mckee MD PROCEDURE: CHEST [...] Elevation of the right hemidiaphragm. Reading [facility] CC: Dr. Todd Velasquez Sr., DO; Dr. Damir Mckee MD Computer Discovery Teacher: Signed Normal [facility] Chloride measurementOrdered By: Damir Mckee on 12-03-2024 Chloride [Moles/Vol] 114 mmol/L High 98-107 [facility] Comprehensive metabolic 1998 panelon 12-03-2024 Albumin [Mass/Vol] 3.5 g/dL 3.4 - 4.8 g/dL [facility] ALP [Catalytic activity/Vol] 90 U/L 40 - 150 U/L [facility] ALT [Catalytic activity/Vol] 14 [facility] Anion gap [Moles/Vol] 10 mmol/L 3 - 13 mmol/L [facility] AST [Catalytic activity/Vol] 31 U/L NINF - 34 U/L [facility] Bilirubin [Mass/Vol] 0.5 mg/dL NINF - 1.2 mg/dL [facility] Calcium [Mass/Vol] 8.5 mg/dL Low 8.8 - 10. 0 mg/dL [facility] Chloride [Moles/Vol] 109 mmol/L High 98 - 10 7 mmol/L [facility] CO2 [Moles/Vol] 22 mmol/L Low 23 - 31 mmol/L [facility] Creatinine [Mass/Vol] 0.82 mg/dL 0.57 - 1.11 mg/dL [facility] GFR/1.73 sq M.predicted (S/P/Bld) [Vol rate/Area] 73.8 mL/min - PINF [facility] Comment on above: Calculation based on the Chronic Kidney Disease Epidemiology Collaboration (CKD-EPI) equation refit without adjustment for race Glucose [Mass/Vol] 112 mg/dL 82 - 115 mg/dL [facility] Interpretation and review of laboratory results Abnormal [facility] Potassium [Moles/Vol] 4.1 mmol/L 3.5 - 5.1 mmol/L [facility] Comment on above: Plasma potassium radha ues may be up to 0.5 mmol/L lower than serum values. Protein [Mass/Vol] 7.1 g/dL 6.4 - 8.3 g/dL [facility] Sodium [Moles/Vol] 141 mmol/L 136 - 145 mmol/L [facility] Urea nitrogen [Mass/Vol] 23 mg/dL 9 - 23 mg/dL [facility] ECG 12-LEADon 12-03-2024 ECG 12-LEAD IMPRESSION: Sinus rhythm Borderline T abnormalities, anterior leads Electronically Signed On 12-03-2024 22:55:54 EST by Roxanna PerezC[facility] ED Provider Noteon ED Provider Note Emergency Department Encounter [facility] EMERGENCY DEPT Patient: Katheryn Chino : [...] the emergency department as a transfer from [place] for breakthrough seizure. Patient reports she has [...] for clarification.) Miriam Hennessy, DO Acute Care [facility] Miriam Hennessy DO 12/04/24 0003 [facility] ED Provider Note EMERGENCY DEPARTMENT ENCOUNTER Pt Name: Katheryn Chino Birthdate 1945 Date of evaluation: 12/03/2024 ED Provider: Rancho Diamond PA-C CHIEF COMPLAINT Chief Complaint Patient presents with Seizures [facility] transfer. Pt from [facility] SNF for 38 minute witnessed seizure [...] the seizure. They did take her to [facility] where she was supposedly observed there [...] Insecurity: No Food Insecurity (08/18/2024) Received from [facility] Hunger Vital Sign Worried About Running Out of Food in the Last Year: Never true Ran Out of Food in the Last Year: Never true Transportation Needs: No Transportation Needs (08/18/2024) Received from [facility] PRAPARE - Transportation Lack of Transportation (Medical): No Lack of Transportation (Non-Medical): No Housing Stability: Low Risk (08/18/2024) Received from [facility] Housing Stability Vital Sign Unable to Pay for Housing in the Last Year: No Number of Times Moved in the Last Year: 0 Homeless in the Last Year: No SCREENINGS Tiny Coma Scale Best Eye Response: Spontaneous Best Verbal Response: Confused Best Motor Response: Follows commands Flora Coma Scale Score: 14 PHYSICAL EXAM ED [...] Department Summary on 12-03-2024 Emergency Department Summary [facility] Medical Records Department [address] [place] [address] Emergency Department Summary 12/03/24 MR#: [id number] Acct: [id number] Name: KATHERYN CHINO Rep #: [id number] : 1945 79 From: Damir Mckee MD [...] similar symptoms: Yes Recent Illness/Hospitalization: No [facility] Medical History Dysphagia, oropharyngeal phase [...] Unobtainable: du (more content not included)... Normal [facility] Eosinophil percentageOrdered By: Damir Mckee on 12-03-2024 Eosinophils/100 WBC (Bld) 0.0 % 0-5 [facility] Erythrocyte distribution wid th (RBC) [Ratio]Ordered By: Damir Mckee on 12-03-2024 Erythrocyte distribution width (RBC) [Entitic vol] 43.0 fL 35.1-43.9 [facility] Erythrocyte distribution wid th ratioOrdered By: Damirsharlene Mckee on 12-03-2024 Erythrocyte distribution width (RBC) [Ratio] 13.2 % 11.6-14.6 [facility] Erythrocyte distribution wid th standard deviationOrdered By: Damir Mckee on 12-03-2024 Erythrocyte distribution width (RBC) [Ratio] 43.0 fl 35.1-43.9 [facility] Estimated glomerular filtrat ion rate (GFR) AmericanOrdered By: Damir Mckee on 12-03-2024 Estimated GFR (MDRD) Amer 116 mL/min >60 [facility] Comment on above: GFR Calc Estimation of creatinine ryan aranceOrdered By: Damir Mckee on 12-03-2024 Estimated Creatinine Clearance Calc 63.94 ml/min [facility] Glomerular filtration rate ( GFR) estimationOrdered By: Damir Mckee on 12-03-2024 Estimated GFR (MDRD) Non-Af Amer 96 mL/min >60 [facility] Comment on above: Non- GFR Calc GFR/1.73 sq M.predicted among non-blacks MDRD (S/P/Bld) [Vol rate/Area] 96 mL/min/{1.73_m2} >60 [facility] Comment on above: Non- GFR Calc Glucose measurementOrdered B y: Damir Mckee on 12-03-2024 Glucose [Mass/Vol] 141 mg/dL High 74-106 [facility] Comment on above: Fasting Glucose resu lt greater than or equal to 126 mg/dL suggests DIABETES MELLITUS per A.D.A. criteria. Hematocrit Auto (Bld) [Volum e fraction]Ordered By: Damirsharlene Ledesmao on 12-03-2024 Hematocrit (Bld) [Volume fraction] 36.5 % Low 37-47 [facility] Hemoglobin measurementOrdere d By: Damir Ledesmao on 12-03-2024 Hemoglobin (Bld) [Mass/Vol] 11.9 g/dL Low 12.0-15.0 [facility] Immature granulocytes/100 WB C Auto (Bld)Ordered By: Damirsharelne Ledesmao on 12-03-2024 Immature granulocytes/100 WBC (Bld) 0.400 % 0.0-0.9 [facility] Comment on above: IG% - Immature Granu locytes (promyelocytes, myelocytes and metamyelocytes) > 1% indicates that a LEFT SHIFT is Present. LACTIC ACID WITH REFLEXon Lactate [Moles/Vol] 1.6 mmol/L Normal 0.5-2.2 [facility] Comment on above: Performed By: #### L [id number] ####Sunglass Cl[employer] Attacher: JACKI MANCILLA ([phone])[address] Laboratory - Chemistry and C hemistry - challengeon 12-03-2024 Lactate [Moles/Vol] 1.6 mmol/L 0.5 - 2. 2 mmol/L [facility] Laboratory - Drug toxicology on 12-03-2024 Phenytoin [Mass/Vol] 14.1 ug/mL 10.0 - 20.0 ug/mL [facility] Laboratory - Microbiology an d Antimicrobial susceptibilityon 12-03-2024 FLUAV RNA RUTH+probe Ql (Resp) Not detected Not Detected [facility] FLUBV RNA RUTH+probe Ql (Resp) Not detected Not Detected [facility] RSV RNA RUTH+probe Ql (Resp) Not detected Not Detected [facility] SARS-CoV-2 (COVID-19) RNA RUTH+probe Ql (Resp) Not detected Not Detected [facility] Lactic Acidon 12-03-2024 Lactate [Moles/Vol] 2.8 mmol/L Invalid Interpretation Code 0.4-1.9 [facility] Comment on above: Result Comment: Crit ical Result(s) Called at: 17:21:47 12/03/2024 by: ISSAC LANE. Results read back by same. Performed By: #### L 503.6005 ####[facility] [address] [facility]. [place], [place], [address] Lactate [Moles/Vol] 4.7 mmol/L Invalid Interpretation Code 0.4-1.9 [facility] Comment on above: Order Comment: Y Result Comment: Crit ical Result(s) Called at: 13:02:25 12/03/2024 by: Fauzia Allred to Katia Hackett. Results read back by same. Performed By: #### L 503.6005 ####[facility] [address] [facility]. [place], [place], [address] Lactic acid measurementOrder ed By: Damir Mckee on 12-03-2024 Lactate [Moles/Vol] 2.8 mmol/L High 0.4-2.0 [facility] Comment on above: Critical Result(s) C alled at: 17:21:47 12/03/2024 by: ISSAC LANE. Results read back by same. Lymphocytes Auto (Unsp spec) [#/Vol]Ordered By: Damir Mckee on 12-03-2024 Lymphocytes (Bld) [#/Vol] 0.66 10*3/uL Low 0.83-4.51 [facility] Lymphocytes/100 WBC Auto (Un sp spec)Ordered By: Damir Mckee on 12-03-2024 Lymphocytes/100 WBC (Bld) 4.8 % Low 19-41 [facility] MCV (mean corpuscular volume ) determinationOrdered By: Damir Mckee on 12-03-2024 MCV (RBC) [Entitic vol] 89.2 fL 81-99 [facility] Mean corpuscular hemoglobin (MCH) determinationOrdered By: Damir Mckee on 12-03-2024 MCH (RBC) [Entitic mass] 29.1 pg 27.0-32.0 [facility] Mean corpuscular hemoglobin concentration (MCHC) determinationOrdered By: Damir Mckee on 12-03-2024 MCHC (RBC) [Mass/Vol] 32.6 g/dL 32-36 [facility] Mean platelet volume determi nationOrdered By: Damirsharlene Mckee on 12-03-2024 Platelet mean volume (Bld) [Entitic vol] 11.9 fL 6.2-12.0 [facility] Monocyte percentageOrdered B y: Damirsharlene Mckee on 12-03-2024 Monocytes/100 WBC (Bld) 4.8 % 0-10 [facility] Neutrophil percentageOrdered By: Damirsharlene Mckee on 12-03-2024 Neutrophils/100 WBC (Bld) 89.7 % High 47-70 [facility] No Panel InformationOrdered By: Roxanna Perez on 12-03-2024 P [place] -3 degrees [facility] Work Phone: MO Interval 151 ms [facility] Work Phone: QRS [place] 38 degrees [employer] Work Phone: QRSD Interval 81 ms [employer] Work Phone: QT Interval 370 ms [employer] Work Phone: QTC Interval 453 ms [employer] Work Phone: T Wave [place] 5 degrees [employer] Work Phone: [facility] Work Phone: No Panel Informationon 12-03 Sinus rhythm Borderline T abnormalities, anterior leads Electronically Signed On 12-03-2024 22:55:54 EST by David Macias DO - 12/03/2024 IMPRESSION: Sinus rhythm Borderline T abnormalities, anterior leads Electronically Signed On 12-03-2024 22:55:54 EST by Roxanna Perez [facility] Interpretation and review of laboratory results Normal [facility] Toxicity seen at concentrations >20.0 ug/mL [facility] Interpretation and review of laboratory results Normal [facility] Nucleated red blood cell per centageOrdered By: Damir Mckee on 12-03-2024 Nucleated RBC/100 WBC (Bld) [Ratio] 0 % 0-5 [facility] PHENYTOIN TOTALon 12-03-2024 PHENYTOIN, TOTAL 14.1 ug/mL Normal 10.0-20.0 [facility] Comment on above: Result Comment: RD Chu COMMENTS: Toxicity seen at concentrations >20.0 ug/mL Performed By: #### L [id number] ####[employer]unglass Clip Attacher: JACKI MANCILLA ([phone])[facility] ([address] Phenytoin (Dilantin) Levelon 12-03-2024 PHENYTOIN 2.6 mL Low 10.0-20.0 [facility] Comment on above: Performed By: #### L 500.2500, L501.7700, L501.8100 ####[facility] [address] [place], [place], [id number] Phenytoin [Mass/Vol]Ordered By: Damir Mckee on 12-03-2024 Phenytoin (Dilantin) Level 2.6 mL Low 10.0-20.0 [facility] Platelet countOrdered By: Iker Mckee on 12-03-2024 Platelets (Bld) [#/Vol] 199 10*3/uL 150-450 [facility] Potassium measurementOrdered By: Damir Mckee on 12-03-2024 Potassium [Moles/Vol] 3.3 mmol/L Low 3.5-5.1 [facility] RBC Auto (Bld) [#/Vol]Ordere d By: Damir Mckee on 12-03-2024 RBC (Bld) [#/Vol] 4.09 10*6/uL Low 4.2-5.4 [facility] RESPIRATORY PATHOGENS PANEL BY PCRon 12-03-2024 RESPIRATORY [...] Not Detected ORDER COMMENTS: Methodology: Multiplex PCR [facility] Comment on above: Performed By: #### L [id number], [id number] ####Sunglass Clip Attacher: JACKI MANCILLA ([phone])[address] SARS-COV-2, FLU A/B, AND RSV COMBOon 12-03-2024 SARS-CoV-2 (COVID-19) RNA RUTH+probe Ql (Unsp spec) SARS-COV-2 Reference Not Detected Not Detected RESPIRATORY SYNCYTIAL VIRUS Reference Not Detected Not Detected INFLUENZA A (CEPHEID) Reference Not Detected Not Detected INFLUENZA B (CEPHEID) Reference Not Detected Not Detected ORDER COMMENTS: Methodology: real-time, RT-PCR [facility] Comment on above: Performed By: #### L AB15 #### Sunglass Clip Attacher: JACKI MANCILLA ([phone]) [facility]) [address] [place] [address] SARS-CoV-2, Flu A/B, and RSV Comboon 12-03-2024 Interpretation and review of laboratory results Normal [facility] Methodology: real-ti me, RT-PCR [facility] Serum anion gap measurementO rdered By: Damir Mckee on 12-03-2024 Anion gap [Moles/Vol] 8 mmol/L 5-15 [facility] Serum or plasma calcium jacob urement (mass/volume)Ordered By: Damir Mckee on 12-03-2024 Calcium [Mass/Vol] 7.4 mg/dL Low 8.5-10.1 [facility] Serum or plasma creatinine m easurement (mass/volume)Ordered By: [facility] on 12-03-2024 Creatinine [Mass/Vol] 0.64 mg/dL 0.55-1.02 [facility] Comment on above: The validity of the calculated GFR & GFRAA in patients over 70 years has not been determined. Clinical correlation is essential. Serum or plasma phenytoin le kate (mass/volume)Ordered By: [facility] on 12-03-2024 Phenytoin [Mass/Vol] 2.6 mL Low 10.0-20.0 [facility] Serum or plasma urea nitroge n measurement (mass/volume)Ordered By: [facility] on 12-03-2024 Urea nitrogen [Mass/Vol] 19 mg/dL High 7-18 [facility] Sodium levelOrdered By: [facility] on 12-03-2024 Sodium [Moles/Vol] 143 mmol/L 136-145 [facility] URINE CULTUREon 12-03-2024 Bacteria identified Cx Nom (U) URINE CULTURE Reference Normal urogenital devyn present ESCHERICHIA COLI >100,000 CFU/mL Escherichia coli (A) AEROCOCCUS URINAE >100,000 CFU/mL Aerococcus urinae (A) Susceptibility testing not routinely performed except on isolates from blood culture. Aerococcus species are generally susceptible to beta-lactams. Resistance to sulfonamides is common in Aerococcus urinae. Providers should call the [facility] Microbiology Laboratory ([phone]) within 3 days if susceptibility testing is [...] Non-susceptible NO = No Interpretation ] Normal [facility] Comment on above: Performed By: #### L AB239, [id number] #### Sunglass Clip Attacher: JACKI MANCILLA ([phone]) [facility] ([facility]) [address] [place] [address] Urinalysis complete panel (U )on 12-03-2024 Bacteria LM.HPF (Urine sed) [#/Area] Loaded Abnormal Negative /HPF [facility] Bilirubin Ql (U) Negative Negative mg/dL [facility] Clarity (U) Extra Turbid Abnormal Clear [facility] Color (U) Yellow Lt. Yellow [facility] Epithelial cells.squamous LM.HPF (Urine sed) [#/Area] 09-08 Abnormal [facility] Glucose Ql (U) Normal Normal (<70) mg/dL [facility] Hemoglobin Ql (U) 0.06 mg/dL Abnormal Negative [facility] Hyaline casts Auto (Urine sed) [#/Area] Negative Negative /LPF [facility] Interpretation and review of laboratory results Abnormal [facility] Ketones (U) [Mass/Vol] Trace Abnormal Negat clay mg/dL [facility] Leukocyte clumps LM.HPF (Urine sed) [#/Area] Many Abnormal Negative /HPF [facility] Leukocyte esterase Test strip Ql (U) 500 Abnormal Negative James/uL [facility] Mucus LM.HPF (Urine sed) [#/Area] Few Negative /LPF [facility] Nitrite Ql (U) Negative Negative [facility] Non-Squamous Epithalial Cells, Urine 3-5 Abnormal Negative /HPF [facility] pH (U) 6.0 [pH] 5.0 - 8.0 pH [facility] Protein (U) [Mass/Vol] 100 mg/dL Abnormal Negative [facility] RBC LM.HPF (Urine sed) [#/Area] 09-08 Abnormal [facility] Specific gravity (U) [Rel density] High 1.005 - 1.030 [facility] Urobilinogen (U) [Mass/Vol] Normal Normal (0-1) mg/dL [facility] WBC LM.HPF (Urine sed) [#/Area] /[HPF] Abnormal [facility] Valproate levelOrdered By: Daniel Mckee on 12-03-2024 Valproic Acid (Depakene) Level 47 ug/mL Low 50-100 [facility] Valproic Acid (Depakene) Lev maribell 12-03-2024 VALPROIC ACID 47 ug/mL Low 50-100 [facility] Comment on above: Performed By: #### L 500.2500, L501.7700, L501.8100 ####[facility] [address] [place], [address] Vital signsOrdered By: Marian Perez on 12-03-2024 Heart rate 90 /min bpm [facility] Work Phone: White blood cell (WBC) count Ordered By: Damir Mckee on 12-03-2024 WBC (Bld) [#/Vol] 13.8 10*3/uL High 4.4-11.0 [facility] XR Chest Single viewon 12-03 No radiographic evid ence of acute cardiopulmonary process. Report Dictated on Electronically Signed By: Micah Adler MD Electronically Signed Date/Time: 12/03/2024 8:07 PM [facility] [employer] Patient Name: KATHERYN YIP : 1945 [...] the spine are present at multiple levels. [facility] [employer] Micah Adler MD - 12/03/2024 [facility] 1945 [id number] Exam Date/Time: 12/03/2024 19:55 Procedure: XR CHEST [...] Electronically Signed Date/Time: 12/03/2024 8:07 PM EST [employer] Radiology Study observation (narrative) [employer] XR Chest Single viewOrdered By: Micah Adler on 12-03-2024 [employer] Work Phone: Kuldip 12-01-2024 [facility] Telephone (NEEPBA) -------- KATHERYN CHINO ([id number]) 1945 F Date Time Provider Department 12/01/24 JAYANT JIMENEZ NEDRAKEBA During your visit today, we recorded the following information about you: Nabeel Smith 12/01/2024 11:10 AM Signed Provider referred patient to rheumatology. I placed into protal under ref# [id number] Allergies As of Date: 12/01/2024 (No Known [...] mg/spray (0.1 mL) nasal spray Use 1 Pitcher in the nose as needed for seizures [...] Encounter Status:Closed by NABEEL SMITH on 12/01/24 [facility] CNPN Telephone (NE50MN) -------- KATHERYN CHINO ([id number]) 1945 F Date Time Provider Department 12/01/24 [...] and DEXA report faxed via RightFax to: [facility] PH: [phone] FAX : [phone] Confirmation received. 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] Prescriptions as of 12/02/2024 [...] mg/spray (0.1 mL) nasal spray Use 1 Pitcher in the nose as needed for seizures [...] Status:Closed by SILVIA ROGERS on 12/02/24 Normal [facility] BD DXA - AXIAL SKELETONon BD DXA [...] years, Gender: Female SCANNER INFORMATION: DXA Model: Laser[employer] - [employer] [id number] Date Scanned: 11/26/2024 11:08 AM CLINICAL HISTORY: DIAGNOSTIC 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 osteoporosis 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 VERTEBRAL FRACTURE ASSESSMENT Not performed. TRABECULAR [...] FOR MORE INFORMATION ABOUT DIAGNOSIS AND TREATMENT: [facility] Center for Osteoporosis and Metabolic Bone Disease:? www.ccf.org/arthritis/os javed National Osteoporosis Foundation:? 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 VERTEBRAL FRACTURE ASSESSMENT Not performed. TRABECULAR [...] FOR MORE INFORMATION ABOUT DIAGNOSIS AND TREATMENT: [facility] Center for Osteoporosis and Metabolic Bone Disease:? www.ccf.org/arthritis/os javed National Osteoporosis Foundation:? www.nof.org International Society of Clinical Densitometry www.iscd.org Computer Discovery Teacher: SUNSHINE Transcribe Date/Time: Nov 29 2024 2:05P Dictated by : ALEXA CRUZ MD This examination was interpreted and the report reviewed and electronically signed by: ALEXA CRUZ MD on Nov 29 2024 2:06PM EST [id number] -4.5 Normal [facility] Phenytoin (Dilantin) Levelon 11-14-2024 PHENYTOIN 8.8 mL Low 10.0-20.0 [facility] Comment on above: Order Comment: 211.2 Performed By: #### L 500.2500, L100.0500 #### [facility] [address] [place], [address] Phenytoin [Mass/Vol]Ordered By: Todd Velasquez on 11-14-2024 Phenytoin (Dilantin) Level 8.8 mL Low 10.0-20.0 [facility] Serum or plasma phenytoin le kate (mass/volume)Ordered By: Todd Velasquez on 11-14-2024 Phenytoin [Mass/Vol] 8.8 mL Low 10.0-20.0 [facility] CNPNon [facility] KATHERYN CHINO ([id number]) 1945 F Date Time Provider Department 11/11/24 JAYANT JIMENEZ During your visit today, we recorded the following information about you: Franchesca Arana 11/11/2024 10:48 AM Signed Received Seizure monitoring report from [facility]. Uploaded to [facility]. Silvia Rogers RN 11/11/2024 11:04 AM Signed Noted. Spoke with nurse Gisella, recommendations provided per MARIO. Letter, copies of LCM, Nayzilam spray faxed to facility. See 11/10/24 phone encounter. Silvia Rogers RN Allergies As of Date: 11/11/2024 (No Known Allergies) Date Reviewed: 09/24/2024 Reviewed by: Shalini Montana LPN - Fully Assessed Reason for Visit: Received Outside Medical Records [3572] Cmt: Seizure monitoring report Prescriptions as of [...] mg/spray (0.1 mL) nasal spray Use 1 Pitcher in the nose as needed for seizures [...] Encounter Status:Closed by SILVIA ROGERS on 11/11/24 [facility] 11[facility]10-20[facility]NE[facility] -------- KATHERYN CHINO ([id number]) 1945 F Date Time Provider Department 11/10/24 JAYANT JIMENEZ NE50MN During your visit today, we recorded the following information about you: Mildred Mendez 11/10/2024 1:45 PM Signed Seizure activity: Name of Caller : Dimitri Becker [place] pt resides Relationship to patient: Caregiver Contact phone number: [phone] Date of seizure: 11/07/24 Duration: 20 minutes Back to Baseline (Yes/No): yes Emergency treatment needed (Yes/No): no Patient of Silvia Ponce, RN 11/10/2024 4:33 PM Signed MALCOLM 09/24/24 [...] was over and family declined. Informed Rosita 91Bob should be called if the patient has LOC, SOB or breathing stops, severe seizure, seizure clusters, and seizures that last for more than 2-3 minutes. Rosita verbalized understanding. Typical wait time for EMS to arrive in the area is 20 minutes, [place]. The patient does not have a seizure rescue medication, nurse is requesting. Forwarded to [facility] [employer] [place] for review. MEGA Christianson Kelly, APRN.DWAYNE 11/10/2024 [...] sent to their facility. MEGA Christianson Kelly, APRN.ICT SALES ASSISTANT 11/11/2024 6:05 AM Signed The following approved medication requests have been transmitted electronically. Requested Prescriptions Signed Prescriptions Disp Refills midazolam (NAYZILAM) 5 mg/spray (0.1 mL) nasal spray 2 Each 0 Sig: Use 1 Pitcher in the nose as needed for seizures lasting longer than 3 minutes for up to 90 days. May repeat dose in alternate nostril after 10 minutes based on response and tolerability. Authorizing Provider: ARTIS HAMILTON lacosamide (VIMPAT) 50 mg tab 42 tablet 0 Sig: Take 1 tablet by mouth daily at bedtime for 7 days, THE (more content not included)... Normal [facility] Albumin to globulin ratioOrd ered By: [facility] on 11-08-2024 Albumin/Globulin [Mass ratio] 0.8 {ratio} Low 0.9-2.4 [facility] Bilirubin, totalOrdered By: [facility] on 11-08-2024 Bilirubin [Mass/Vol] 0.40 mg/dL 0.20-1.00 [facility] Comment on above: For patients on eltr ombopag therapy, use of Dimension [place] TBIL is not recommended. Blood urea nitrogen (BUN)/cr eatinine ratioOrdered By: [facility] on 11-08-2024 Urea nitrogen/Creatinine [Mass ratio] 24.0 mg/mg High 10-20 [facility] CBC-Complete Blood Cnt No Di ffon 11-08-2024 Erythrocyte distribution width (RBC) [Ratio] 13.2 % Normal 11.6-14.6 [facility] Comment on above: Performed By: #### L 500.2500, L100.0500 #### [facility] [address] [place], [address] Hematocrit (Bld) [Volume fraction] 37.8 % Normal 37-47 [facility] Comment on above: Performed By: #### L 500.2500, L100.0500 #### [facility] [address] [place], [address] Hemoglobin (Bld) [Mass/Vol] 11.9 g/dL Low 12.0-15.0 [facility] Comment on above: Performed By: #### L 500.2500, L100.0500 #### [facility] [address] [place], [address] MCH (RBC) [Entitic mass] 28.2 pg Normal 27.0-32.0 [facility] Comment on above: Performed By: #### L 500.2500, L100.0500 #### [facility] [address] [place], [address] MCHC (RBC) [Mass/Vol] 31.5 g/dL Low 32-36 [facility] Comment on above: Performed By: #### L 500.2500, L100.0500 #### [facility] [address] [place], [address] MCV (RBC) [Entitic vol] 89.6 fL Normal 81-99 [facility] Comment on above: Performed By: #### L 500.2500, L100.0500 #### [facility] [address] [place], [address] Platelet mean volume (Bld) [Entitic vol] 12.1 fL High 6.2-12.0 [facility] Comment on above: Performed By: #### L 500.2500, L100.0500 #### [facility] [address] [place], [address] Platelets (Bld) [#/Vol] 227 10*3/uL Normal 150-450 [facility] Comment on above: Performed By: #### L 500.2500, L100.0500 #### [facility] [address] [place], [address] RBC (Bld) [#/Vol] 4.22 10*6/uL Normal 4.2-5.4 [facility] Comment on above: Performed By: #### L 500.2500, L100.0500 #### [facility] [address] [place], [address] RDW SD 43.1 fl Normal 35.1-43.9 [facility] Comment on above: Performed By: #### L 500.2500, L100.0500 #### [facility] [address] [place], [address] WBC (Bld) [#/Vol] 6.4 10*3/uL Normal 4.4-11.0 [facility] Comment on above: Performed By: #### L 500.2500, L100.0500 #### [facility] [address] [place], [address] Carbon dioxide measurementOr dered By: [facility] on 11-08-2024 CO2 [Moles/Vol] 28.0 mmol/L 21.0-32.0 [facility] Chloride measurementOrdered By: [facility] on 11-08-2024 Chloride [Moles/Vol] 109 mmol/L High 98-107 [facility] Comprehensive Metabolic Prof ilon 11-08-2024 Albumin [Mass/Vol] 3.7 g/dL Normal 3.2-5.0 [facility] Comment on above: Performed By: #### L 500.2500, L100.0500 #### [facility] [address] [place], [address] Albumin/Globulin [Mass ratio] 0.8 {ratio} Low 0.9-2.4 [facility] Comment on above: Performed By: #### L 500.2500, L100.0500 #### [facility] [address] [place], [address] ALK P 141 U/L High 45-117 [facility] Comment on above: Performed By: #### L 500.2500, L100.0500 #### [facility] [address] [place], [address] ALT [Catalytic activity/Vol] 17 U/L Normal 13-56 [facility] Comment on above: Performed By: #### L 500.2500, L100.0500 #### [facility] [address] [place], [address] AST [Catalytic activity/Vol] 26 U/L Normal 15-37 [facility] Comment on above: Performed By: #### L 500.2500, L100.0500 #### [facility] [address] [place], [address] Bilirubin [Mass/Vol] 0.40 mg/dL Normal 0.20-1.00 [facility] Comment on above: Result Comment: For patients on eltrombopag therapy, use of Dimension [place] TBIL is not recommended. Performed By: #### L 500.2500, L100.0500 #### [facility] [address] [place], [address] BUN/CRE 24.0 RATIO High 10-20 [facility] Comment on above: Performed By: #### L 500.2500, L100.0500 #### [facility] [address] [place], [address] CA,Total 9.7 mg/dL Normal 8.5-10.1 [facility] Comment on above: Performed By: #### L 500.2500, L100.0500 #### [facility] [address] [place], [address] Chloride [Moles/Vol] 109 mmol/L High 98-107 [facility] Comment on above: Performed By: #### L 500.2500, L100.0500 #### [facility] [address] [place], [address] CO2 [Moles/Vol] 28.0 mmol/L Normal 21.0-32.0 [facility] Comment on above: Performed By: #### L 500.2500, L100.0500 #### [facility] [address] [place], [address] Creatinine [Mass/Vol] 0.83 mg/dL Normal 0.55-1.02 [facility] Comment on above: Result Comment: The validity of the calculated GFR GFRAA in patients over 70 years has not been determined. Clinical correlation is essential. Performed By: #### L 500.2500, L100.0500 #### [facility] [address] [place], [address] EST GFR - AA 85 mL/min Normal >60 [facility] Comment on above: Result Comment: Afri can Australian GFR Calc Performed By: #### L 500.2500, L100.0500 #### [facility] [address] [place], [address] GAP 3 Low 5-15 [facility] Comment on above: Performed By: #### L 500.2500, L100.0500 #### [facility] [address] [place], [address] GFR/1.73 sq M.predicted among non-blacks MDRD (S/P/Bld) [Vol rate/Area] 71 mL/min/{1.73_m2} Normal >60 [facility] Comment on above: Result Comment: Non- GFR Calc Performed By: #### L 500.2500, L100.0500 #### [facility] [address] [place], [address] Globulin (S) [Mass/Vol] 4.6 g/dL High 2.2-4.2 [facility] Comment on above: Performed By: #### L 500.2500, L100.0500 #### [facility] [address] [place], [address] Glucose [Mass/Vol] 79 mg/dL Normal 74-106 [facility] Comment on above: Performed By: #### L 500.2500, L100.0500 #### [facility] [address] [place], [address] Potassium [Moles/Vol] 4.9 mmol/L Normal 3.5-5.1 [facility] Comment on above: Performed By: #### L 500.2500, L100.0500 #### [facility] [address] [place], [address] Sodium [Moles/Vol] 140 mmol/L Normal 136-145 [facility] Comment on above: Performed By: #### L 500.2500, L100.0500 #### [facility] [address] [place], [address] T PROT 8.3 g/dL High 6.4-8.2 [facility] [facility] Comment on above: Performed By: #### L 500.2500, L100.0500 #### [facility] [address] [place], [place], [id number] Urea nitrogen [Mass/Vol] 20 mg/dL High 7-18 [facility] Comment on above: Performed By: #### L 500.2500, L100.0500 #### [facility] [address] [place], [address] Erythrocyte distribution wid th (RBC) [Ratio]Ordered By: [facility] on 11-08-2024 Erythrocyte distribution width (RBC) [Entitic vol] 43.1 fL 35.1-43.9 [facility] Erythrocyte distribution wid th ratioOrdered By: [facility] on 11-08-2024 Erythrocyte distribution width (RBC) [Ratio] 13.2 % 11.6-14.6 [facility] Erythrocyte distribution wid th standard deviationOrdered By: [facility] on 11-08-2024 Erythrocyte distribution width (RBC) [Ratio] 43.1 fl 35.1-43.9 [facility] Estimated glomerular filtrat ion rate (GFR) AmericanOrdered By: [facility] on 11-08-2024 Estimated GFR (MDRD) Amer 85 mL/min >60 [facility] Comment on above: GFR Calc Glomerular filtration rate ( GFR) estimationOrdered By: [facility] on 11-08-2024 Estimated GFR (MDRD) Non-Af Amer 71 mL/min >60 [facility] Comment on above: Non- GFR Calc GFR/1.73 sq M.predicted among non-blacks MDRD (S/P/Bld) [Vol rate/Area] 71 mL/min/{1.73_m2} >60 [facility] Comment on above: Non- GFR Calc Glucose measurementOrdered B y: [facility] on 11-08-2024 Glucose [Mass/Vol] 79 mg/dL 74-106 [facility] Hematocrit Auto (Bld) [Volum e fraction]Ordered By: [facility] on 11-08-2024 Hematocrit (Bld) [Volume fraction] 37.8 % 37-47 [facility] Hemoglobin measurementOrdere d By: [facility] on 11-08-2024 Hemoglobin (Bld) [Mass/Vol] 11.9 g/dL Low 12.0-15.0 [facility] - Chemistry and C hemistry - challengeOrdered By: [facility] on 11-08-2024 AST [Catalytic activity/Vol] 26 U/L 15-37 [facility] MCV (mean corpuscular volume ) determinationOrdered By: [facility] on 11-08-2024 MCV (RBC) [Entitic vol] 89.6 fL 81-99 [facility] Mean corpuscular hemoglobin (MCH) determinationOrdered By: [facility] on 11-08-2024 MCH (RBC) [Entitic mass] 28.2 pg 27.0-32.0 [facility] Mean corpuscular hemoglobin concentration (MCHC) determinationOrdered By: [facility] on 11-08-2024 MCHC (RBC) [Mass/Vol] 31.5 g/dL Low 32-36 [facility] Mean platelet volume determi nationOrdered By: [facility] on 11-08-2024 Platelet mean volume (Bld) [Entitic vol] 12.1 fL High 6.2-12.0 [facility] Phenytoin (Dilantin) Levelon 11-08-2024 PHENYTOIN 7.9 mL Low 10.0-20.0 [facility] Comment on above: Order Comment: 211.2 Performed By: #### L 500.2500, L100.0500 #### [facility] [address], [address] Phenytoin [Mass/Vol]Ordered By: [facility] on 11-08-2024 Phenytoin (Dilantin) Level 7.9 mL Low 10.0-20.0 [facility] Platelet countOrdered By: [facility] on 11-08-2024 Platelets (Bld) [#/Vol] 227 10*3/uL 150-450 [facility] Potassium measurementOrdered By: [facility] on 11-08-2024 Potassium [Moles/Vol] 4.9 mmol/L 3.5-5.1 [facility] RBC Auto (Bld) [#/Vol]Ordere d By: [facility] on 11-08-2024 RBC (Bld) [#/Vol] 4.22 10*6/uL 4.2-5.4 [facility] Serum anion gap measurementO rdered By: [facility] on 11-08-2024 Anion gap [Moles/Vol] 3 mmol/L Low 5-15 [facility] Serum globulin measurementOr dered By: [facility] on 11-08-2024 Globulin (S) [Mass/Vol] 4.6 g/dL High 2.2-4.2 [facility] Serum or plasma alanine ignacio otransferase (ALT) measurementOrdered By: [facility] on 11-08-2024 ALT [Catalytic activity/Vol] 17 U/L 13-56 [facility] Serum or plasma albumin jacob urement (mass/volume)Ordered By: [facility] on 11-08-2024 Albumin [Mass/Vol] 3.7 g/dL 3.2-5.0 [facility] Serum or plasma alkaline phillip sphatase measurementOrdered By: [facility] on 11-08-2024 ALP [Catalytic activity/Vol] 141 U/L High 45-117 [facility] Serum or plasma calcium jacob urement (mass/volume)Ordered By: [facility] on 11-08-2024 Calcium [Mass/Vol] 9.7 mg/dL 8.5-10.1 [facility] Serum or plasma creatinine m easurement (mass/volume)Ordered By: [facility] on 11-08-2024 Creatinine [Mass/Vol] 0.83 mg/dL 0.55-1.02 [facility] Comment on above: The validity of the calculated GFR & GFRAA in patients over 70 years has not been determined. Clinical correlation is essential. Serum or plasma phenytoin le kate (mass/volume)Ordered By: [facility] on 11-08-2024 Phenytoin [Mass/Vol] 7.9 mL Low 10.0-20.0 [facility] Serum or plasma urea nitroge n measurement (mass/volume)Ordered By: [facility] on 11-08-2024 Urea nitrogen [Mass/Vol] 20 mg/dL High 7-18 [facility] Sodium levelOrdered By: [facility] on 11-08-2024 Sodium [Moles/Vol] 140 mmol/L 136-145 [facility] Total proteinOrdered By: [facility] on 11-08-2024 Protein [Mass/Vol] 8.3 g/dL High 6.4-8.2 [facility] Valproate levelOrdered By: [facility] on 11-08-2024 Valproic Acid (Depakene) Level 68 ug/mL 50-100 [facility] Valproic Acid (Depakene) Lev maribell 11-08-2024 VALPROIC ACID 68 ug/mL Normal 50-100 [facility] Comment on above: Order Comment: 211.2 Performed By: #### L 500.2500, L100.0500 #### [facility] [address] [place], [address] White blood cell (WBC) count [facility] WBC (Bld) [#/Vol] 6.4 10*3/uL 4.4-11.0 [facility] CNPNon 11-07-2024 CNPN Telephone (NE50MN) -------- KATHERYN CHINO ([id number]) 1945 F Date Time Provider Department 11/07/24 JAYANT JIMENEZ NE50MN During your visit today, we recorded the following information about you: Yocasta Rivers 11/07/2024 3:48 PM Signed General call : Full name of person calling: [facility] Relationship to patient: Phone # : [...] Status:Closed by SILVIA ROGERS on 11/10/24 Normal [facility] Absolute neutrophil countOrd ered By: Todd Velasquez on 09-29-2024 Neutrophils (Bld) [#/Vol] 3.3 10*3/uL 2.0-7.7 [facility] Albumin to globulin ratioOrd ered By: Todd Velasquez on 09-29-2024 Albumin/Globulin [Mass ratio] 0.7 {ratio} Low 0.9-2.4 [facility] Basophil percentageOrdered B y: Todd Velasquez on 09-29-2024 Basophils/100 WBC (Bld) 0.7 % 0-1 [facility] Bilirubin, totalOrdered By: Todd Velasquez on 09-29-2024 Bilirubin [Mass/Vol] 0.30 mg/dL 0.20-1.00 [facility] Comment on above: For patients on eltr ombopag therapy, use of Dimension [place] TBIL is not recommended. Blood urea nitrogen (BUN)/cr eatinine ratioOrdered By: Todd Velasquez on 09-29-2024 Urea nitrogen/Creatinine [Mass ratio] 23.9 mg/mg High 10- [facility] CBC W/Diff, Automatedon 09-14 Absolute Lymph 2.51 X10 3/uL Normal 0.83-4.51 [facility] Comment on above: Order Comment: 211.2 Performed By: #### L 3410.9998, L500.4050, L100.0500, L501.8100, [id number] #### [facility] [address] [place], [address] Absolute Neut 3.3 X10 3/uL Normal 2.0-7.7 [facility] Comment on above: Order Comment: 211.2 Performed By: #### L 3410.9998, L500.4050, L100.0500, L501.8100, [id number] #### [facility] [address] [place], [address] Basophils/100 WBC (Bld) 0.7 % Normal 0-1 [facility] Comment on above: Order Comment: 211.2 Performed By: #### L 3410.9998, L500.4050, L100.0500, L501.8100, [id number] #### [facility] [address] [place], [address] Eosinophils/100 WBC (Bld) 1.8 % Normal 0-5 [facility] Comment on above: Order Comment: 211.2 Performed By: #### L 3410.9998, L500.4050, L100.0500, L501.8100, [id number] #### [facility] [address] [place], [address] Erythrocyte distribution width (RBC) [Ratio] 13.7 % Normal 11.6-14.6 [facility] Comment on above: Order Comment: 211.2 Performed By: #### L 3410.9998, L500.4050, L100.0500, L501.8100, [id number] #### [facility] [address] [place], [address] Hematocrit (Bld) [Volume fraction] 34.3 % Low 37-47 [facility] Comment on above: Order Comment: 211.2 Performed By: #### L 3410.9998, L500.4050, L100.0500, L501.8100, [id number] #### [facility] [address] [place], [address] Hemoglobin (Bld) [Mass/Vol] 10.7 g/dL Low 12.0-15.0 [facility] Comment on above: Order Comment: 211.2 Performed By: #### L 3410.9998, L500.4050, L100.0500, L501.8100, [id number] #### [facility] [address] [place], [address] IG% 0.300 Normal 0.0-0.9 [facility] Comment on above: Order Comment: 211.2 Result Comment: IG% - Immature Granulocytes (promyelocytes, myelocytes and metamyelocytes) > 1% indicates that a LEFT SHIFT is Present. Performed By: #### L 3410.9998, L500.4050, L100.0500, L501.8100, L501.9520 #### [facility] [address] [place], [address] Lymphocytes/100 WBC (Bld) 37.1 % Normal 19-41 [facility] Comment on above: Order Comment: 211.2 Performed By: #### L 3410.9998, L500.4050, L100.0500, L501.8100, [id number] #### [facility] [address] [place], [address] MCH (RBC) [Entitic mass] 29.2 pg Normal 27.0-32.0 [facility] Comment on above: Order Comment: 211.2 Performed By: #### L 3410.9998, L500.4050, L100.0500, L501.8100, [id number] #### [facility] [address] [place], [address] MCHC (RBC) [Mass/Vol] 31.2 g/dL Low 32-36 [facility] Comment on above: Order Comment: 211.2 Performed By: #### L 3410.9998, L500.4050, L100.0500, L501.8100, [id number] #### [facility] [address] [place], [address] MCV (RBC) [Entitic vol] 93.7 fL Normal 81-99 [facility] Comment on above: Order Comment: 211.2 Performed By: #### L 3410.9998, L500.4050, L100.0500, L501.8100, [id number] #### [facility] [address] [place], [address] Monocytes/100 WBC (Bld) 12.1 % High 0-10 [facility] Comment on above: Order Comment: 211.2 Performed By: #### L 3410.9998, L500.4050, L100.0500, L501.8100, L501.9520 #### [facility] [address] [place], [address] Neutrophils/100 WBC (Bld) 48.0 % Normal 47-70 [facility] Comment on above: Order Comment: 211.2 Performed By: #### L 3410.9998, L500.4050, L100.0500, L501.8100, [id number] #### [facility] [address] [place], [address] Nucleated RBC (Bld) [#/Vol] 0 10*3/uL Normal 0-5 [facility] Comment on above: Order Comment: 211.2 Performed By: #### L 3410.9998, L500.4050, L100.0500, L501.8100, L501.9520 #### [facility] [address] [place], [address] Platelet mean volume (Bld) [Entitic vol] 11.8 fL Normal 6.2-12.0 [facility] Comment on above: Order Comment: 211.2 Performed By: #### L 3410.9998, L500.4050, L100.0500, L501.8100, L501.9520 #### [facility] [address] [place], [address] Platelets (Bld) [#/Vol] 195 10*3/uL Normal 150-450 [facility] Comment on above: Order Comment: 211.2 Performed By: #### L 3410.9998, L500.4050, L100.0500, L501.8100, [id number] #### [facility] [address] [place], [address] RBC (Bld) [#/Vol] 3.66 10*6/uL Low 4.2-5.4 [facility] Comment on above: Order Comment: 211.2 Performed By: #### L 3410.9998, L500.4050, L100.0500, L501.8100, [id number] #### [facility] [address] [place], [address] RDW SD 46.8 fl High 35.1-43.9 [facility] Comment on above: Order Comment: 211.2 Performed By: #### L 3410.9998, L500.4050, L100.0500, L501.8100, [id number] #### [facility] [address] [place], [address] WBC (Bld) [#/Vol] 6.8 10*3/uL Normal 4.4-11.0 [facility] Comment on above: Order Comment: 211.2 Performed By: #### L 3410.9998, L500.4050, L100.0500, L501.8100, L501.9520 #### [facility] [address] [place], [address] Carbon dioxide measurementOr dered By: Todd Velasquez on 09-29-2024 CO2 [Moles/Vol] 24.0 mmol/L 21.0-32.0 [facility] Chloride measurementOrdered By: Todd Velasquez on 09-29-2024 Chloride [Moles/Vol] 110 mmol/L High 98-107 [facility] Comprehensive Metabolic Prof ilon 09-29-2024 Albumin [Mass/Vol] 2.9 g/dL Low 3.2-5.0 [facility] Comment on above: Order Comment: 211.2 Performed By: #### L 3410.9998, L500.4050, L100.0500, L501.8100, L501.9520 #### [facility] [address] [place], [address] Albumin/Globulin [Mass ratio] 0.7 {ratio} Low 0.9-2.4 [facility] Comment on above: Order Comment: 211.2 Performed By: #### L 3410.9998, L500.4050, L100.0500, L501.8100, L501.9520 #### [facility] [address] [place], [address] ALK P 114 U/L Normal 45-117 [facility] Comment on above: Order Comment: 211.2 Performed By: #### L 3410.9998, L500.4050, L100.0500, L501.8100, L501.9520 #### [facility] [address] [place], [address] ALT [Catalytic activity/Vol] 18 U/L Normal 13-56 [facility] Comment on above: Order Comment: 211.2 Performed By: #### L 3410.9998, L500.4050, L100.0500, L501.8100, L501.9520 #### [facility] [address] [place], [address] AST [Catalytic activity/Vol] 24 U/L Normal 15-37 [facility] Comment on above: Order Comment: 211.2 Performed By: #### L 3410.9998, L500.4050, L100.0500, L501.8100, L501.9520 #### [facility] [address] [place], [address] Bilirubin [Mass/Vol] 0.30 mg/dL Normal 0.20-1.00 [facility] Comment on above: Order Comment: 211.2 Result Comment: For patients on eltrombopag therapy, use of Dimension [place] TBIL is not recommended. Performed By: #### L 3410.9998, L500.4050, L100.0500, L501.8100, L501.9520 #### [facility] [address] [place], [address] BUN/CRE 23.9 RATIO High 10-20 [facility] Comment on above: Order Comment: 211.2 Performed By: #### L 3410.9998, L500.4050, L100.0500, L501.8100, L501.9520 #### [facility] [address] [place], [address] CA,Total 9.2 mg/dL Normal 8.5-10.1 [facility] Comment on above: Order Comment: 211.2 Performed By: #### L 3410.9998, L500.4050, L100.0500, L501.8100, L501.9520 #### [facility] [address] [place], [address] Chloride [Moles/Vol] 110 mmol/L High 98-107 [facility] Comment on above: Order Comment: 211.2 Performed By: #### L 3410.9998, L500.4050, L100.0500, L501.8100, L501.9520 #### [facility] [address] [place], [address] CO2 [Moles/Vol] 24.0 mmol/L Normal 21.0-32.0 [facility] Comment on above: Order Comment: 211.2 Performed By: #### L 3410.9998, L500.4050, L100.0500, L501.8100, L501.9520 #### [facility] [address] [place], [address] Creatinine [Mass/Vol] 0.80 mg/dL Normal 0.55-1.02 [facility] Comment on above: Order Comment: 211.2 Result Comment: The validity of the calculated GFR GFRAA in patients over 70 years has not been determined. Clinical correlation is essential. Performed By: #### L 3410.9998, L500.4050, L100.0500, L501.8100, L501.9520 #### [facility] [address] [place], [address] EST GFR - AA 90 mL/min Normal >60 [facility] Comment on above: Order Comment: 211.2 Result Comment: Afri can [place] GFR Calc Performed By: #### L 3410.9998, L500.4050, L100.0500, L501.8100, L501.9520 #### [facility] [address] [place], [address] GAP 6 Normal 5-15 [facility] Comment on above: Order Comment: 211.2 Performed By: #### L 3410.9998, L500.4050, L100.0500, L501.8100, L501.9520 #### [facility] [address] [place], [address] GFR/1.73 sq M.predicted among non-blacks MDRD (S/P/Bld) [Vol rate/Area] 74 mL/min/{1.73_m2} Normal >60 [facility] Comment on above: Order Comment: 211.2 Result Comment: Non- GFR Calc Performed By: #### L 3410.9998, L500.4050, L100.0500, L501.8100, L501.9520 #### [facility] [address] [place], [address] Globulin (S) [Mass/Vol] 4.0 g/dL Normal 2.2-4.2 [facility] Comment on above: Order Comment: 211.2 Performed By: #### L 3410.9998, L500.4050, L100.0500, L501.8100, L501.9520 #### [facility] [address] [place], [address] Glucose [Mass/Vol] 91 mg/dL Normal 74-106 [facility] Comment on above: Order Comment: 211.2 Performed By: #### L 3410.9998, L500.4050, L100.0500, L501.8100, L501.9520 #### [facility] [address] [place], [address] Potassium [Moles/Vol] 4.3 mmol/L Normal 3.5-5.1 [facility] Comment on above: Order Comment: 211.2 Performed By: #### L 3410.9998, L500.4050, L100.0500, L501.8100, L501.9520 #### [facility] [address] [place], [address] Sodium [Moles/Vol] 140 mmol/L Normal 136-145 [facility] Comment on above: Order Comment: 211.2 Performed By: #### L 3410.9998, L500.4050, L100.0500, L501.8100, L501.9520 #### [facility] [address] [place], [address] T PROT 6.9 g/dL Normal 6.4-8.2 [facility] Comment on above: Order Comment: 211.2 Performed By: #### L 3410.9998, L500.4050, L100.0500, L501.8100, L501.9520 #### [facility] [address] [place], [place], [address] Urea nitrogen [Mass/Vol] 19 mg/dL High 7-18 [facility] Comment on above: Order Comment: 211.2 Performed By: #### L 3410.9998, L500.4050, L100.0500, L501.8100, L501.9520 #### [facility] [address] [place], [place], [address] Eosinophil percentageOrdered By: Todd Velasquez on 09-29-2024 Eosinophils/100 WBC (Bld) 1.8 % 0-5 [facility] Erythrocyte distribution wid th (RBC) [Ratio]Ordered By: Todd Velasquez on 09-29-2024 Erythrocyte distribution width (RBC) [Entitic vol] 46.8 fL High 35.1-43.9 [facility] Erythrocyte distribution wid th ratioOrdered By: Todd Velasquez on 09-29-2024 Erythrocyte distribution width (RBC) [Ratio] 13.7 % 11.6-14.6 [facility] Estimated glomerular filtrat ion rate (GFR) AmericanOrdered By: Todd Velasquez on 09-29-2024 Estimated GFR (MDRD) Amer 90 mL/min >60 [facility] Comment on above: GFR Calc Glomerular filtration rate ( GFR) estimationOrdered By: Todd Velasquez on 09-29-2024 Estimated GFR (MDRD) Non-Af Amer 74 mL/min >60 [facility] Comment on above: Non- GFR Calc Glucose measurementOrdered B y: Todd Velasquez on 09-29-2024 Glucose [Mass/Vol] 91 mg/dL 74-106 [facility] Hematocrit Auto (Bld) [Volum e fraction]Ordered By: Todd Velasquez on 09-29-2024 Hematocrit (Bld) [Volume fraction] 34.3 % Low 37-47 [facility] Hemoglobin measurementOrdere d By: Todd Velasquez on 09-29-2024 Hemoglobin (Bld) [Mass/Vol] 10.7 g/dL Low 12.0-15.0 [facility] Immature granulocytes/100 WB C Auto (Bld)Ordered By: Todd Velasquez on 09-29-2024 Immature granulocytes/100 WBC (Bld) 0.300 % 0.0-0.9 [facility] Comment on above: IG% - Immature Granu locytes (promyelocytes, myelocytes and metamyelocytes) > 1% indicates that a LEFT SHIFT is Present. Laboratory - Chemistry and C hemistry - challengeOrdered By: Todd Velasquez on 09-29-2024 AST [Catalytic activity/Vol] 24 U/L 15-37 [facility] Lymphocytes Auto (Unsp spec) [#/Vol]Ordered By: Todd Velasquez on 09-29-2024 Lymphocytes (Bld) [#/Vol] 2.51 10*3/uL 0.83-4.51 [facility] Lymphocytes/100 WBC Auto (Un sp spec)Ordered By: Todd Velasquez on 09-29-2024 Lymphocytes/100 WBC (Bld) 37.1 % 19-41 [facility] MCV (mean corpuscular volume ) determinationOrdered By: Todd Velasquez on 09-29-2024 MCV (RBC) [Entitic vol] 93.7 fL 81-99 [facility] Mean corpuscular hemoglobin (MCH) determinationOrdered By: Todd Velasquez on 09-29-2024 MCH (RBC) [Entitic mass] 29.2 pg 27.0-32.0 [facility] Mean corpuscular hemoglobin concentration (MCHC) determinationOrdered By: Todd Velasquez on 09-29-2024 MCHC (RBC) [Mass/Vol] 31.2 g/dL Low 32-36 [facility] Mean platelet volume determi nationOrdered By: Todd Velasquez on 09-29-2024 Platelet mean volume (Bld) [Entitic vol] 11.8 fL 6.2-12.0 [facility] Monocyte percentageOrdered B y: Todd Velasquez on 09-29-2024 Monocytes/100 WBC (Bld) 12.1 % High 0-10 [facility] Neutrophil percentageOrdered By: Todd Velasquez on 09-29-2024 Neutrophils/100 WBC (Bld) 48.0 % 47-70 [facility] Nucleated red blood cell per centageOrdered By: Todd Velasquez on 09-29-2024 Nucleated RBC/100 WBC (Bld) [Ratio] 0 % 0-5 [facility] Phenytoin (Dilantin) Levelon 09-29-2024 PHENYTOIN 14.0 mL Normal 10.0-20.0 [facility] Comment on above: Order Comment: 211.2 Performed By: #### L 3410.9998, L500.4050, L100.0500, L501.8100, L501.9520 #### [facility] [address] [place], [place], [address] Phenytoin [Mass/Vol]Ordered By: Todd Velasquez on 09-29-2024 Phenytoin (Dilantin) Level 14.0 mL 10.0-20.0 [facility] Platelet countOrdered By: Whitley on 09-29-2024 Platelets (Bld) [#/Vol] 195 10*3/uL 150-450 [facility] Potassium measurementOrdered By: Todd Velasquez on 09-29-2024 Potassium [Moles/Vol] 4.3 mmol/L 3.5-5.1 [facility] RBC Auto (Bld) [#/Vol]Ordere d By: Todd Velasquez on 09-29-2024 RBC (Bld) [#/Vol] 3.66 10*6/uL Low 4.2-5.4 [facility] Serum anion gap measurementO rdered By: Todd Velasquez on 09-29-2024 Anion gap [Moles/Vol] 6 mmol/L 5-15 [facility] Serum globulin measurementOr dered By: Todd Velasquez on 09-29-2024 Globulin (S) [Mass/Vol] 4.0 g/dL 2.2-4.2 [facility] Serum or plasma alanine ignacio otransferase (ALT) measurementOrdered By: Todd Velasquez on 09-29-2024 ALT [Catalytic activity/Vol] 18 U/L 13-56 [facility] Serum or plasma albumin jacob urement (mass/volume)Ordered By: Todd Velasquez on 09-29-2024 Albumin [Mass/Vol] 2.9 g/dL Low 3.2-5.0 [facility] Serum or plasma alkaline phillip sphatase measurementOrdered By: Todd Velasquez on 09-29-2024 ALP [Catalytic activity/Vol] 114 U/L 45-117 [facility] Serum or plasma calcium jacob urement (mass/volume)Ordered By: Todd Velasquez on 09-29-2024 Calcium [Mass/Vol] 9.2 mg/dL 8.5-10.1 [facility] Serum or plasma creatinine m easurement (mass/volume)Ordered By: Todd Velasquez on 09-29-2024 Creatinine [Mass/Vol] 0.80 mg/dL 0.55-1.02 [facility] Comment on above: The validity of the calculated GFR & GFRAA in patients over 70 years has not been determined. Clinical correlation is essential. Serum or plasma urea nitroge n measurement (mass/volume)Ordered By: Todd Velasquez on 09-29-2024 Urea nitrogen [Mass/Vol] 19 mg/dL High 7-18 [facility] Sodium levelOrdered By: Todd Velasquez on 09-29-2024 Sodium [Moles/Vol] 140 mmol/L 136-145 [facility] Total proteinOrdered By: Ignacia Velasquez on 09-29-2024 Protein [Mass/Vol] 6.9 g/dL 6.4-8.2 [facility] Valproate levelOrdered By: Barbara Velasquez on 09-29-2024 Valproic Acid (Depakene) Level 87 ug/mL 50-100 [facility] Valproic Acid (Depakene) Lev maribell 09-29-2024 VALPROIC ACID 87 ug/mL Normal 50-100 [facility] Comment on above: Order Comment: 211.2 Performed By: #### L 3410.9998, L500.4050, L100.0500, L501.8100, L501.9520 #### [facility] [address] [place], [place], [id number] White blood cell (WBC) count Ordered By: Todd Velasquez on 09-29-2024 WBC (Bld) [#/Vol] 6.8 10*3/uL 4.4-11.0 [facility] Ammoniaon 09-26-2024 Ammonia (P) [Moles/Vol] 41.0 umol/L High 11-32 [facility] Comment on above: Order Comment: 211.2 Performed By: #### L 501.7700, L503.5510, L501.8100 ####[facility] [address] [place], [place], [id number] CNPNon 09-26-2024 CNPN Telephone (NE50KS) -------- KATHERYN CHINO ([id number]) 1945 F Date Time Provider Department 09/26/24 JAYANT JIMENEZ NE50MN During your visit today, we recorded the following information about you: Sherrell Bojorquez RN 09/26/2024 1:14 PM Signed Per patient's nurseKatia - recent labs are trough No ETH level completed Current ASMs: PHT 100 mg BID VPA 750 mg TID ETH 250 mg BID Forwarded to [address] for review/recommendation Sherrell Bojorquez RN Per MALCOLM of 09/24/2024 w/Dr. Jimenez The doses listed on facility paperwork are different than what was listed on discharge summary at [facility]. Called the facility and confirmed [...] Switch Dilantin to Vimpat, zonisamide. Artis Hamilton APRN.DWAYNE 09/26/2024 4:20 PM Signed Levels reviewed, VPA still mildly elevated- would decrease dose to 500 mg TID. 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 (more content not included)... Normal [facility] Phenytoin (Dilantin) Levelon 09-26-2024 PHENYTOIN 15.4 mL Normal 10.0-20.0 [facility] Comment on above: Order Comment: 211.2 Performed By: #### L 500.2500, L100.0500 #### [facility] [address] [place], [place], [address] Phenytoin [Mass/Vol]Ordered By: Todd Velasquez on 09-26-2024 Phenytoin (Dilantin) Level 15.4 mL 10.0-20.0 [facility] Valproate levelOrdered By: Barbara Velasquez on 09-26-2024 Valproic Acid (Depakene) Level 112 ug/mL High 50-100 [facility] Valproic Acid (Depakene) Lev maribell 09-26-2024 VALPROIC ACID 112 ug/mL High 50-100 [facility] Comment on above: Order Comment: 211.2 Performed By: #### L 500.2500, L100.0500 #### [facility] [address] [place], [place], [id number] Venous blood ammonia measure mentOrdered By: Todd Velasquez on 09-26-2024 Ammonia (P) [Moles/Vol] 41.0 umol/L High 11-32 [facility] CNOVon 09-24-2024 CNOV Office Visit (NEEPBA ) -------- KATHERYN CHINO ([id number]) 1945 F Date Time Provider Department 09/24/24 [...] as Ammonia (needs to be done at [facility]) I will order a bone scan called DEXA to see if you have suffered osteoporosis due to [facility] use of seizure medications. Reduce the morning [...] precautions - No driving in the state [facility] until seizure free for 6 months. [...] factor. Jayant Jimenez MD Associate Staff, Epilepsy [facility] September 24, 2024 Office phone: [phone] BONE MINERAL DENSITY PATIENT INSTRUCTIONS Bone mineral [...] Jayant Jimenez MD 09/24/2024 11:19 AM Signed [facility] Patient Name: Katheryn GARCIA Date of : 1945 INITIAL EPILEPSY CLINIC NOTE 09/24/2024 8:00 AM CHIEF COMPLAINT: New Patient and Epilepsy HISTORY OF PRESENT ILLNESS Ms. Chino is a 79 year old female seen in [facility] for initial consultation. [...] with AEDs . She moved to a [place] and she has more suervison with AEDs [...] it lasted ~ 25 mins). Admitted to [facility] where Dilantin and Depakote levels were low. Doses were adjusted- PHT 100 mg TID and VPA 1000 mg TID. Zarontin was continued at 250 mg BID. Interval Seizure History The doses listed on facility paperwork are different than what was listed on discharge summary at [facility]. Called the facility and confirmed the following doses (more content not included)... Normal [facility] Phenytoin (Dilantin) Levelon 09-22-2024 PHENYTOIN 21.7 mL High 10.0-20.0 [facility] Comment on above: Order Comment: 211.2 Performed By: #### L 500.2500, L100.0500 #### [facility] [address] [place], [address] Phenytoin [Mass/Vol]Ordered By: Todd Velasquez on 09-22-2024 Phenytoin (Dilantin) Level 21.7 mL High 10.0-20.0 [id number] KATHERYN CHINO ([id number]) 1945 F Date Time Provider Department 09/19/24 JAYANT JIMENEZ NE50MN During your visit today, we recorded the following information about you: Alexandra Sainz 09/19/2024 4:18 PM Signed OUTSIDE LAB [facility] PHONE/FAX: [phone] / [phone] COLLECTION DATE AND TIME: 09/19/2024 - 06:15 Uploaded to [facility] Silvia Rogers RN 09/22/2024 12:09 PM Signed [...] Status:Closed by SILVIA ROGERS on 09/22/24 Normal [facility] Phenytoin (Dilantin) Levelon 09-19-2024 PHENYTOIN 21.9 mL High 10.0-20.0 [facility] Comment on above: Order Comment: 211.2 Performed By: #### L 3410.9998, L500.4050, L100.0500, L501.8100, L501.9520 #### [facility] [address] [place], [place], [id number] Phenytoin [Mass/Vol]Ordered By: Todd Velasquez on 09-19-2024 Phenytoin (Dilantin) Level 21.9 mL High 10.0-20.0 [facility] Phenytoin (Dilantin) Levelon 09-17-2024 PHENYTOIN 22.0 mL High 10.0-20.0 [facility] Comment on above: Order Comment: 211.2 Performed By: #### L 3410.9998, L500.4050, L100.0500, L501.8100, L501.9520 #### [facility] [address] [place], [place], [address] Phenytoin [Mass/Vol]Ordered By: Todd Velasquez on 09-17-2024 Phenytoin (Dilantin) Level 22.0 mL High 10.0-20.0 [facility] Phenytoin (Dilantin) Levelon 09-15-2024 PHENYTOIN 25.1 mL High 10.0-20.0 [facility] Comment on above: Order Comment: 211.2 Performed By: #### L 3410.9998, L500.4050, L100.0500, L501.8100, L501.9520 #### [facility] [address] [place], [place], [id number] Valproic Acid (Depakene) Lev maribell 09-15-2024 VALPROIC ACID 92 ug/mL Normal 50-100 [facility] Comment on above: Order Comment: 211.2 Performed By: #### L 3410.9998, L500.4050, L100.0500, L501.8100, L501.9520 #### [facility] [address] [place], [place], [address] CNPAni 09-05-2024 CNPN Telephone (NE50MN) -------- KATHERYN CHINO ([id number]) 1945 F Date Time Provider Department 09/05/24 JAYANT JIMENEZ NE50MN During your visit today, we recorded the following information about you: Alexandra Sainz 09/05/2024 2:22 PM Signed Form received: From (agency / facility / parent): [facility] personnel counselor (if given): Brea Malloy RN Phone #: [phone] Fax # : [phone] Email: n/a Information requested: Review Labs Collected 09/05/2024 - 05:30 for Valproic Acid and Dilantin and approval for medication dosages Patient of Dr. Jimenez Forwarded to nurse. Also uploaded to [facility]. Sherrell Bojorquez RN 09/05/2024 3:11 PM Signed Called [facility] - left message for nursing staff to contact office MEGA Mondragon Elizabeth, RN 09/05/2024 3:11 PM Signed Patient update per nurse Renae, [facility]: - Last known seizure: 08/17/2024 - [...] trough NOV: 09/24/2024 w/Dr. Jimenez Forwarded to [facility] [address] [place] for review Sherrell Bojorquez RN Per neurology [...] same. -F/U Epilepsy as outpatient. Artis Hamilton APRN.CNP 09/05/2024 4:00 PM Signed Pt can continue current doses. Artis Hamilton APRN.Sherrell Don RN 09/05/2024 4:34 PM Signed Spoke with nurse Renae, [facility] - provided recommendation/she verbalizes understanding. MEGA Mondragon Christina M, RN 09/22/2024 12:09 PM Signed === MEGA Christianson Kelly, APRN.DWAYNE 09/22/2024 3:12 PM Addendum PHT level mildly elevated- if no se's would continue current dose Artis Hamilton APRN.Silvia Willis RN 09/23/2024 5:14 PM Signed Spoke with ADIA Chen at [facility]. Confirmed no side effects and to [...] - pantoprazo (more content not included)... Normal [facility] Phenytoin (Dilantin) Levelon 09-05-2024 PHENYTOIN 15.2 mL Normal 10.0-20.0 [facility] Comment on above: Order Comment: 211.2 Performed By: #### L 3410.9998, L500.4050, L100.0500, L501.8100, L501.9520 #### [facility] [address] [place], [address] Valproic Acid (Depakene) Lev maribell 09-05-2024 VALPROIC ACID 120 ug/mL High 50-100 [facility] Comment on above: Order Comment: 211.2 Performed By: #### L 3410.9998, L500.4050, L100.0500, L501.8100, L501.9520 #### [facility] [address] [place], [address] Basic Metabolic Profile (BMP )on 08-27-2024 BUN/CRE 22.3 RATIO High 10-20 [facility] Comment on above: Order Comment: 211.2 Performed By: #### L 500.2500, L501.7700, L501.8100, L100.0500 ####[facility] [address] [place], [address] CA,Total 8.8 mg/dL Normal 8.5-10.1 [facility] Comment on above: Order Comment: 211.2 Performed By: #### L 500.2500, L501.7700, L501.8100, L100.0500 ####[facility] [address] [place], [address] Chloride [Moles/Vol] 110 mmol/L High 98-107 [facility] Comment on above: Order Comment: 211.2 Performed By: #### L 500.2500, L501.7700, L501.8100, L100.0500 ####[facility] [address] [place], [address] CO2 [Moles/Vol] 28.0 mmol/L Normal 21.0-32.0 [facility] Comment on above: Order Comment: 211.2 Performed By: #### L 500.2500, L501.7700, L501.8100, L100.0500 ####[facility] [address] [place], [address] Creatinine [Mass/Vol] 0.67 mg/dL Normal 0.55-1.02 [facility] Comment on above: Order Comment: 211.2 Result Comment: The validity of the calculated GFR GFRAA in patients over 70 years has not been determined. Clinical correlation is essential. Performed By: #### L 500.2500, L501.7700, L501.8100, L100.0500 ####[facility] [address] [place], [address] EST GFR - AA 109 mL/min Normal >60 [facility] Comment on above: Order Comment: .2 Result Comment: Afri can Australian GFR Calc Performed By: #### L 500.2500, L501.7700, L501.8100, L100.0500 ####[facility] [address] [place], [address] GAP 5 Normal 5-15 [facility] Comment on above: Order Comment: 211.2 Performed By: #### L 500.2500, L501.7700, L501.8100, L100.0500 ####[facility] [address] [place], [address] GFR/1.73 sq M.predicted among non-blacks MDRD (S/P/Bld) [Vol rate/Area] 90 mL/min/{1.73_m2} Normal >60 [facility] Comment on above: Order Comment: .2 Result Comment: Non- GFR Calc Performed By: #### L 500.2500, L501.7700, L501.8100, L100.0500 ####[facility] [address] [place], [address] Glucose [Mass/Vol] 88 mg/dL Normal 74-106 [facility] Comment on above: Order Comment: 211.2 Performed By: #### L 500.2500, L501.7700, L501.8100, L100.0500 ####[facility] [address] [place], [address] Potassium [Moles/Vol] 4.3 mmol/L Normal 3.5-5.1 [facility] Comment on above: Order Comment: 211.2 Performed By: #### L 500.2500, L501.7700, L501.8100, L100.0500 ####[facility] [address] [place], [address] Sodium [Moles/Vol] 142 mmol/L Normal 136-145 [facility] Comment on above: Order Comment: 211.2 Performed By: #### L 500.2500, L501.7700, L501.8100, L100.0500 ####[facility] [address] [place], [address] Urea nitrogen [Mass/Vol] 15 mg/dL Normal 7-18 [facility] Comment on above: Order Comment: 211.2 Performed By: #### L 500.2500, L501.7700, L501.8100, L100.0500 ####[facility] [address] [place], [address] CBC-Complete Blood Cnt No Di ffon 08-27-2024 Erythrocyte distribution width (RBC) [Ratio] 13.7 % Normal 11.6-14.6 [facility] Comment on above: Order Comment: 211.2 Performed By: #### L 500.2500, L501.7700, L501.8100, L100.0500 ####[facility] [address] [place], [address] Hematocrit (Bld) [Volume fraction] 36.7 % Low 37-47 [facility] Comment on above: Order Comment: 211.2 Performed By: #### L 500.2500, L501.7700, L501.8100, L100.0500 ####[facility] [address] [place], [address] Hemoglobin (Bld) [Mass/Vol] 11.7 g/dL Low 12.0-15.0 [facility] Comment on above: Order Comment: 211.2 Performed By: #### L 500.2500, L501.7700, L501.8100, L100.0500 ####[facility] [address] [place], [address] MCH (RBC) [Entitic mass] 29.7 pg Normal 27.0-32.0 [facility] Comment on above: Order Comment: 211.2 Performed By: #### L 500.2500, L501.7700, L501.8100, L100.0500 ####[facility] [address] [place], [address] MCHC (RBC) [Mass/Vol] 31.9 g/dL Low 32-36 [facility] Comment on above: Order Comment: 211.2 Performed By: #### L 500.2500, L501.7700, L501.8100, L100.0500 ####[facility] [address] [place], [address] MCV (RBC) [Entitic vol] 93.1 fL Normal 81-99 [facility] Comment on above: Order Comment: 211.2 Performed By: #### L 500.2500, L501.7700, L501.8100, L100.0500 ####[facility] [address] [place], [address] Platelet mean volume (Bld) [Entitic vol] 12.4 fL High 6.2-12.0 [facility] Comment on above: Order Comment: 211.2 Performed By: #### L 500.2500, L501.7700, L501.8100, L100.0500 ####[facility] [address] [place], [address] Platelets (Bld) [#/Vol] 181 10*3/uL Normal 150-450 [facility] Comment on above: Order Comment: 211.2 Performed By: #### L 500.2500, L501.7700, L501.8100, L100.0500 ####[facility] [address] [place], [address] RBC (Bld) [#/Vol] 3.94 10*6/uL Low 4.2-5.4 [facility] Comment on above: Order Comment: 211.2 Performed By: #### L 500.2500, L501.7700, L501.8100, L100.0500 ####[facility] [address] [place], [place], [address] RDW SD 46.8 fl High 35.1-43.9 [facility] Comment on above: Order Comment: 211.2 Performed By: #### L 500.2500, L501.7700, L501.8100, L100.0500 ####[facility] [address] [place], [address] WBC (Bld) [#/Vol] 6.6 10*3/uL Normal 4.4-11.0 [facility] Comment on above: Order Comment: 211.2 Performed By: #### L 500.2500, L501.7700, L501.8100, L100.0500 ####[facility] [address] [place], [address] [facility]NE[facility] -------- KATHERYN CHINO ([id number]) 1945 F Date Time Provider Department 08/27/24 JAYANT JIMENEZ NE50MN During your visit today, we recorded the following information about you: Mildred Mendez 08/27/2024 3:31 PM Signed OUTSIDE LAB REPORT FACILITY NAME [facility] PHONE/FAX COLLECTION DATE AND TIME: 08/26/24 0455 Uploaded to Epic Pt scheduled for N/C w/ Sandra Duncan RN 08/28/2024 4:09 PM Signed VPA: 08/27/2024 at 04:55 104: (? to 100) VAP 1000 mg: TID (was increased from 750 mg during recent hospitalization). Previous level ws 94 on 08/06/2024 ======== 08/17/2024 to 08/20/2024 [facility] ======== was patient of Dr. Pereira's last seen 09/01/[address] Jimenez on 09/24/2024: new consult ========= Call placed to [facility] [phone] Jimenez's number given to call back Sandra Casey RN Franchesca Arana 08/29/2024 10:26 AM Signed Mima of [facility] returning Nurse call. Please call [phone] Sandra Casey RN 08/29/2024 2:04 PM Signed [...] Status:Closed by SILVIA ROGERS on 08/29/24 Normal [facility] Phenytoin (Dilantin) Levelon 08-27-2024 PHENYTOIN 9.8 mL Low 10.0-20.0 [facility] Comment on above: Order Comment: 211.2 0000 Performed By: #### L 500.2500, L501.7700, L501.8100, L100.0500 ####[facility] [address] [place], [address] Valproic Acid (Depakene) Lev maribell 08-27-2024 VALPROIC ACID 104 ug/mL High 50-100 [facility] Comment on above: Order Comment: . 0000 Performed By: #### L 500.2500, L501.7700, L501.8100, L100.0500 ####[facility] [address] [place], [place], [address] CNDSon 08-20-2024 CNDS HNO ID: [id number] Author: JUAN JOSE HENDERSON DO Service: Hospital [...] No pending results Discharge Disposition Discharge Disposition: Group Home Facility - Greater than 30 Days Diet [...] call for appointment?: Yes Orville Mendoza DO [phone] [facility] [place] [id number] PCP Requested Referral Follow-Up Appointment Follow-up hospitalization With: Your neurologist When: In 3 weeks Patient/Parents to call for appointment?: Yes Additional Provider to Provider Information: Treatment Team: Attending Provider: Juan Jose Henderson DO Primary Service: SHELBY RODRIGUEZ FOLLOW-UP APPOINTMENTS AL[facility]EDUL[facility]: No future appointments. ALLERGIES No [...] as: DEPAK (more content not included)... Normal [facility] THERAPY NTon 08-20-2024 THERAPY NT HNO ID: [id number] Author: ERIN MCDONNELL PT Service: Physical Therapy Author Type: Physical Therapist Type: Therapy (PT/OT/Speech/Resp) Filed: 08/20/2024 09:58 Note Text: Physical Therapy Evaluation Summary SERVICE DATE: 08/20/2024 SERVICE TIME: 843 to 900 ROOM: [id number] PT 6 Clicks Score: 11 DISCHARGE RECOMMENDATIONS F Recommended Discharge Disposition Comments: patient appears to be at functional baseline, reports use of nima steady and in wheelchair at discharge that she self propels. Recommend return to [facility] care ASSESSMENT Response to Therapy Interventions: Good [...] assist sometimes; feeds herself; has been at [facility] for past 10 years SUBJECTIVE Agreeable to PT session THERAPY DIAGNOSIS No Skilled Need TREATMENT INTERVENTIONS Evaluation $ Evaluation-Moderate (97715) Billed Units: 1 unit Skilled Treatment Time [...] walker in order to simulate pulling at [facility] which she uses at residential. PT assisted to stabilize walker and assisted [...] August 20, 2024 TIME: 9:57 AM Normal [facility] THERAPY NT HNO ID: [id number] Author: BARBARA GARCIA OTR/L Service: Occupational Therapy Author Type: Occupational Therapist Type: Therapy (PT/OT/Speech/Resp) Filed: 08/20/2024 09:35 Note Text: Occupational Therapy Evaluation Summary SERVICE DATE: 08/20/2024 SERVICE TIME: 902 to 918 ROOM: [id number] OT 6 Clicks Score: 14 DISCHARGE RECOMMENDATIONS ECF Recommended Discharge Disposition Comments: recommend return to [facility]; pt resident for past 10 years; [...] assist sometimes; feeds herself; has been at [facility] for past 10 years Baseline Cognition: Oriented to self, Oriented to place, Oriented to time, Oriented to situation SUBJECTIVE agreeable to session; no c/o pain; reports feeling back to her baseline COGNITION Responsiveness: Alert Follows Commands: 1-step Commands THERAPY DIAGNOSIS Reduced mobility-other, Decreased activities of daily living (ADL) TREATMENT INTERVENTIONS Evaluation Skilled Treatment Time (minutes): 16 $ Evaluation - Low (10977) Billed Units: 1 unit TRAINING AND EDUCATION PROVIDED Activity Adaptation/Compensatory Strategies, Bed Mobility, Benefits of In-Hospital Mobility, Functional Mobility Involving ADLs, Grooming Tasks, Orientation, Role of Occupational Therapy, Sitting Balance to Improve [place] with ADLs/Self-Care THERAPEUTIC SKILLS USED Assessment of [...] Services Discontinued: No skilled needs SIGNATURE: Barbara Lesvia, OTR/L PATIENT NAME: Katheryn Chino DATE: August 20, 2024 TIME: 9:35 AM Normal [facility] L501.7701on 08-19-2024 Phenytoin [Mass/Vol] 7.0 ug/mL Abnormal 10.0-20.0 [facility] Comment on above: Result Comment: Dete ction Limit = 0.8 <0.8 Indicates None Detected Performed at: - [address] [id number] [place] Fisherman: Haris Peraza PhD, Phone: [phone] Performed By: #### L 3410.9998, L500.4050, L100.0500, L501.8100, L501.9595 #### [facility] [address] [place], [place], [address] CBC W Auto Differential pane l (Bld)on 08-18-2024 Basophils (Bld) [#/Vol] 0.07 10*3/uL Normal <0.11 [facility] Comment on above: Order Comment: Speci men Type: BLOOD SPECIMEN Ordering Facility: [facility] Address: [address] [place] [address] Performed By: #### 5 7021-8 #### [facility] CLIA [id number] [address] [place] Basophils/100 WBC (Bld) 0.7 % Normal A [facility] Comment on above: Order Comment: Speci men Type: BLOOD SPECIMEN Ordering Facility: [facility] Address: [address] [place] [address] Performed By: #### 5 7021-8 #### [facility] CLIA [id number] [address] [place] Differential cell count method Nom (Bld) Auto Normal [facility] Comment on above: Order Comment: Speci men Type: BLOOD SPECIMEN Ordering Facility: [facility] Address: [address] [place] [address] Performed By: #### 5 7021-8 #### [facility] CLIA [id number] [address] [place] Eosinophils (Bld) [#/Vol] 10*3/uL Normal <0.46 [facility] Comment on above: Order Comment: Speci men Type: BLOOD SPECIMEN Ordering Facility: [facility] Address: [address] [place] [address] Performed By: #### 5 7021-8 #### [facility] CLIA [id number] [address] [place] Eosinophils/100 WBC (Bld) 0.2 % Normal [facility] Comment on above: Order Comment: Speci men Type: BLOOD SPECIMEN Ordering Facility: [facility] Address: [address] [place] [address] Performed By: #### 5 7021-8 #### [facility] CLIA [id number] [address] Erythrocyte distribution width (RBC) [Ratio] 13.7 % Normal 11.5-15.0 [facility] Comment on above: Order Comment: Speci men Type: BLOOD SPECIMEN Ordering Facility: [facility] Address: [address] [place] [address] Performed By: #### 5 7021-8 #### [facility] CLIA [id number] [address] OF [facility] Hematocrit (Bld) [Volume fraction] 35.4 % Low 36.0-46.0 [facility] Comment on above: Order Comment: Speci men Type: BLOOD SPECIMEN Ordering Facility: [facility] Address: [address] [place] [address] Performed By: #### 5 7021-8 #### [facility] CLIA [id number] [address] [place] Hemoglobin (Bld) [Mass/Vol] 11.5 g/dL Normal 11.5-15.5 [facility] Comment on above: Order Comment: Speci men Type: BLOOD SPECIMEN Ordering Facility: [facility] Address: [facility] [place] [address] Performed By: #### 5 7021-8 #### [facility] CLIA [id number] [address] Immature granulocytes (Bld) [#/Vol] 0.09 10*3/uL Normal <0.10 [facility] Comment on above: Order Comment: Speci men Type: BLOOD SPECIMEN Ordering Facility: [facility] Address: [address] [place] [address] Performed By: #### 5 7021-8 #### [facility] CLIA [id number] [address] Immature granulocytes/100 WBC (Bld) 0.9 % Normal [facility] Comment on above: Order Comment: Speci men Type: BLOOD SPECIMEN Ordering Facility: [facility] Address: [address] [place] [address] Performed By: #### 5 7021-8 #### [facility] CLIA [id number] [address] Lymphocytes (Bld) [#/Vol] 3.08 10*3/uL Normal 1.00-4.00 [facility] Comment on above: Order Comment: Speci men Type: BLOOD SPECIMEN Ordering Facility: [facility] Address: [address] [place] [address] Performed By: #### 5 7021-8 #### [facility] CLIA [id number] [address] Lymphocytes/100 WBC (Bld) 31.9 % Normal [facility] Comment on above: Order Comment: Speci men Type: BLOOD SPECIMEN Ordering Facility: [facility] Address: [address] [place] [address] Performed By: #### 5 7021-8 #### [facility] CLIA [id number] [address] [place] MCH (RBC) [Entitic mass] 29.9 pg Normal 26.0-34.0 [facility] Comment on above: Order Comment: Speci men Type: BLOOD SPECIMEN Ordering Facility: [facility] Address: [address] [place] [address] Performed By: #### 5 7021-8 #### [facility] CLIA [id number] [address] MCHC (RBC) [Mass/Vol] 32.5 g/dL Normal 30.5-36.0 [facility] Comment on above: Order Comment: Speci men Type: BLOOD SPECIMEN Ordering Facility: [facility] Address: [address] [place] [address] Performed By: #### 5 7021-8 #### [facility] CLIA [id number] [address] MCV (RBC) [Entitic vol] 92.2 fL Normal 80.0-100.0 [facility] Comment on above: Order Comment: Speci men Type: BLOOD SPECIMEN Ordering Facility: [facility] Address: [address] [place] [address] Performed By: #### 5 7021-8 #### [facility] CLIA [id number] [address] [place] Monocytes (Bld) [#/Vol] 1.02 10*3/uL High <0.87 [facility] Comment on above: Order Comment: Speci men Type: BLOOD SPECIMEN Ordering Facility: [facility] Address: [address] [place] [address] Performed By: #### 5 7021-8 #### [facility] CLIA [id number] [address] Monocytes/100 WBC (Bld) 10.5 % Normal [facility] Comment on above: Order Comment: Speci men Type: BLOOD SPECIMEN Ordering Facility: [facility] Address: [address] [place] [address] Performed By: #### 5 7021-8 #### [facility] CLIA [id number] [address] [place] Neutrophils (Bld) [#/Vol] 5.39 10*3/uL Normal 1.45-7.50 [facility] Comment on above: Order Comment: Speci men Type: BLOOD SPECIMEN Ordering Facility: [facility] Address: [address] [place] [address] Performed By: #### 5 7021-8 #### [facility] CLIA [id number] [address] Neutrophils/100 WBC (Bld) 55.8 % Normal [facility] Comment on above: Order Comment: Speci men Type: BLOOD SPECIMEN Ordering Facility: [facility] Address: [address] [place] [address] Performed By: #### 5 7021-8 #### [facility] CLIA [id number] [address] Nucleated RBC (Bld) [#/Vol] 10*3/uL Normal <0.01 [facility] Comment on above: Order Comment: Speci men Type: BLOOD SPECIMEN Ordering Facility: [facility] Address: [address] [place] [address] Performed By: #### 5 7021-8 #### [facility] CLIA [id number] [address] Nucleated RBC/100 WBC (Bld) [Ratio] 0.0 /100 WBC Normal [facility] Comment on above: Order Comment: Speci men Type: BLOOD SPECIMEN Ordering Facility: [facility] Address: [address] [place] [address] Performed By: #### 5 7021-8 #### [facility] CLIA [id number] [address] Platelet mean volume (Bld) [Entitic vol] 11.1 fL Normal 9.0-12.7 [facility] Comment on above: Order Comment: Speci men Type: BLOOD SPECIMEN Ordering Facility: [facility] Address: [facility] [place] [address] Performed By: #### 5 7021-8 #### [facility] CLIA [id number] [address] Platelets (Bld) [#/Vol] 185 10*3/uL Normal 150-400 [facility] Comment on above: Order Comment: Ina lobato Type: BLOOD SPECIMEN Ordering Facility: [facility] Address: [address] [place] [address] Performed By: #### 5 7021-8 #### [facility] CLIA [id number] [address] OF [facility] RBC (Bld) [#/Vol] 3.84 10*6/uL Low 3.90-5.20 [facility] Comment on above: Order Comment: Josuei luis alfredo Type: BLOOD SPECIMEN Ordering Facility: [facility] Address: [address] [place] [address] Performed By: #### 5 7021-8 #### [facility] CLIA [id number] [address] WBC (Bld) [#/Vol] 9.67 10*3/uL Normal 3.70-11.00 [facility] Comment on above: Order Comment: Josuei luis alfredo Type: BLOOD SPECIMEN Ordering Facility: [facility] Address: [address] [place] [address] Performed By: #### 5 7021-8 #### [facility] CLIA [id number] [address] CONSULTon 08-18-2024 CONSULT HNO ID: [id number] Author: KEYONA SANTANA MD Service: Neurology General [...] for status epilepticus pt was transferred to [facility] for increased monitoring. Today pt reports [...] against grav (more content not included)... Normal [facility] CONSULT HNO ID: [id number] Author: CHASE ROBERTSON APRN.ICT SALES ASSISTANT Service: Palliative Care Author Type: Nurse Practitioner Type: Consults Filed: 08/18/2024 12:36 Note Text: INPATIENT PALLIATIVE MEDICINE NOTE [facility] Katheryn Chino [id number] * Palliative Medicine Diagnoses: Seizures, MDD, dementia, [...] MDD, HTN, and seizures who presented from [place] with 10-15 minutes of grand mal seizures. Patient is from [place]. HCPOA 1 is brother Danny, 2 Richard, [...] prescriptions were reported. 08/18/2024 by Chase Robertson APRN.ICT SALES ASSISTANT PAST MEDICAL HISTORY Diagnosis Date High blood [...] negative. Palliative Assessment Review of Symptoms (Modified [place] Symptom Assessment): Pain: None Dyspnea: None Nausea: [...] an inpatient palliative unit, all diagnoses (Marleen 2001). Vitals: 08/17/24 2045 08/18/24 0104 08/18/24 0740 [...] MIN PRN (more content not included)... Normal [facility] Comprehensive metabolic 2000 panelon 08-18-2024 Albumin [Mass/Vol] 4.3 g/dL Normal 3.9-4.9 [facility] Comment on above: Order Comment: Speci men Type: BLOOD SPECIMEN Ordering Facility: [facility] Address: [address] [place] [address] Performed By: #### 1 23-9, 62285-3 #### [facility] CLIA [id number] [address] OF [facility] ALP [Catalytic activity/Vol] 115 U/L Normal 34-123 [facility] Comment on above: Order Comment: Speci men Type: BLOOD SPECIMEN Ordering Facility: [facility] Address: [address] [place] [address] Performed By: #### 1 23-9, 31838-0 #### [facility] CLIA [id number] [address] ALT With P-5'-P [Catalytic activity/Vol] 16 U/L Normal 7-38 [facility] Comment on above: Order Comment: Speci men Type: BLOOD SPECIMEN Ordering Facility: [facility] Address: [address] [place] [address] Performed By: #### 1 23-9, 84044-2 #### [facility] CLIA [id number] [address] Anion gap [Moles/Vol] 13 mmol/L Normal 8-15 [facility] Comment on above: Order Comment: Speci men Type: BLOOD SPECIMEN Ordering Facility: [facility] Address: [address] [place] [address] Performed By: #### 1 23-9, 78069-3 #### [facility] CLIA [id number] 1 [place] [address] [place] AST With P-5'-P [Catalytic activity/Vol] 30 U/L Normal 13-35 [facility] Comment on above: Order Comment: Speci men Type: BLOOD SPECIMEN Ordering Facility: [facility] Address: [address] [place] [address] Performed By: #### 1 9123-9, 51010-2 #### [facility] CLIA [id number] [address] [place] Bilirubin [Mass/Vol] 0.4 mg/dL Normal 0.2-1.3 [facility] Comment on above: Order Comment: Speci men Type: BLOOD SPECIMEN Ordering Facility: [facility] Address: [address] [place] [address] Performed By: #### 1 9123-9, 72354-9 #### [facility] CLIA [id number] [address] [place] Calcium [Mass/Vol] 9.3 mg/dL Normal 8.5-10.2 [facility] Comment on above: Order Comment: Speci men Type: BLOOD SPECIMEN Ordering Facility: [facility] Address: [address] [place] [address] Performed By: #### 1 9123-9, 87893-3 #### [facility] CLIA [id number] 1 [place] [address] [place] Chloride [Moles/Vol] 103 mmol/L Normal 98-107 [facility] Comment on above: Order Comment: Speci men Type: BLOOD SPECIMEN Ordering Facility: [facility] Address: [address] [place] [address] Performed By: #### 1 9123-9, 48144-8 #### [facility] CLIA [id number] [address] [place] CO2 [Moles/Vol] 25 mmol/L Normal 22-30 [facility] Comment on above: Order Comment: Speci men Type: BLOOD SPECIMEN Ordering Facility: [facility] Address: [address] [place] [address] Performed By: #### 1 9123-9, 84872-5 #### [facility] CLIA [id number] [address] STATES OF [facility] Creatinine [Mass/Vol] 0.81 mg/dL Normal 0.58-0.96 [facility] Comment on above: Order Comment: Speci men Type: BLOOD SPECIMEN Ordering Facility: [facility] Address: [address] [place] [address] Performed By: #### 1 9123-9, 16150-8 #### [facility] CLIA [id number] [address] Creatinine and Glomerular filtration rate.predicted panel (S/P/Bld) 75 mL/min/1.73m??? Normal >=60 [facility] Comment on above: Order Comment: Speci men Type: BLOOD SPECIMEN Ordering Facility: [facility] Address: [address] [place] [address] Result Comment: Yesika mated Glomerular Filtration Rate [...] actual GFR. Performed By: #### 1 9123-9, 10081-8 #### [facility] CLIA [id number] [address] [place] [address] [place] Glucose [Mass/Vol] 84 mg/dL Normal 74-99 [facility] Comment on above: Order Comment: Speci men Type: BLOOD SPECIMEN Ordering Facility: [facility] Address: [address] [place] [address] Result Comment: The [place] Diabetes Association (ADA) provides guidance for cutoff [...] Standards of Medical Care in Diabetes 2016, [place] Diabetes Association. Diabetes Care. 2016.39(Suppl 1). Performed By: #### 1 23-9, 00534-2 #### [facility] CLIA [id number] 1 [place] [address] [place] Potassium [Moles/Vol] 4.4 mmol/L Normal 3.7-5.1 [facility] Comment on above: Order Comment: Josuei men Type: BLOOD SPECIMEN Ordering Facility: [facility] Address: [address] [place] [address] Performed By: #### 1 23-9, 50027-1 #### [facility] CLIA [id number] 1 [place] [address] [place] Protein [Mass/Vol] 7.4 g/dL Normal 6.3-8.0 [facility] Comment on above: Order Comment: Josuei men Type: BLOOD SPECIMEN Ordering Facility: [facility] Address: [address] [place] [address] Performed By: #### 1 23-9, 31858-8 #### [facility] CLIA [id number] 1 [place] [address] [place] Sodium [Moles/Vol] 141 mmol/L Normal 136-144 [facility] Comment on above: Order Comment: Speci men Type: BLOOD SPECIMEN Ordering Facility: [facility] Address: [address] [place] [address] Performed By: #### 1 23-9, 70385-9 #### [facility] CLIA [id number] [address] [place] Urea nitrogen [Mass/Vol] 19 mg/dL Normal 7-21 [facility] Comment on above: Order Comment: Speci men Type: BLOOD SPECIMEN Ordering Facility: [facility] Address: [address] [place] [address] Performed By: #### 1 9123-9, 52641-5 #### [facility] CLIA [id number] [address] STATES OF [facility] Magnesium SerPl-mCncon 08-18 Magnesium [Mass/Vol] 1.9 mg/dL Normal 1.7-2.3 [facility] Comment on above: Order Comment: Speci men Type: BLOOD SPECIMEN Ordering Facility: [facility] Address: [address] [place] [address] Performed By: #### 1 9123-9, 50834-2 #### [facility] CLIA [id number] [address] OF [facility] Phenytoin SerPl-mCncon 08-18 Phenytoin [Mass/Vol] 6.8 ug/mL Low 10.0-20.0 [facility] Comment on above: Order Comment: Speci men Type: BLOOD SPECIMEN Ordering Facility: [facility] Address: [address] [place] [address] Result Comment: Refe rence ranges and high/low indicator flags are provided as general guidelines only. The treating physician must determine appropriate target levels/dosing based on the specific clinical situation. Performed By: #### 3 968-5 #### [facility] CLIA [id number] [address] Urinalysis complete panel (U )on 08-18-2024 Bilirubin Ql (U) Negative Normal Negative [facility] Comment on above: Order Comment: Speci men Type: URINE SPECIMEN Ordering Facility: [facility] Address: [address] [place] [address] Performed By: #### 2 4356-8 #### [facility] CLIA [id number] [address] [place] Clarity (Unsp spec) Clear Normal Clear [facility] Comment on above: Order Comment: Speci men Type: URINE SPECIMEN Ordering Facility: [facility] Address: [address] [place] [address] Performed By: #### 2 4356-8 #### [facility] CLIA [id number] [address] OF [facility] Color (U) Yellow Normal yellow [facility] Comment on above: Order Comment: Speci men Type: URINE SPECIMEN Ordering Facility: [facility] Address: [address] [place] [address] Performed By: #### 2 4356-8 #### [facility] CLIA [id number] [address] Epithelial cells LM.HPF (Urine sed) [#/Area] Few Normal [facility] Comment on above: Order Comment: Speci men Type: URINE SPECIMEN Ordering Facility: [facility] Address: [facility] [place] [address] Performed By: #### 2 4356-8 #### [facility] CLIA [id number] [address] [place] Glucose Test strip (U) [Mass/Vol] Negative Normal Trace, Negative [facility] Comment on above: Order Comment: Speci men Type: URINE SPECIMEN Ordering Facility: [facility] Address: [address] [place] [address] Performed By: #### 2 4356-8 #### [facility] CLIA [id number] [address] [place] Hemoglobin Ql (U) Negative Normal Negative, Trace [facility] Comment on above: Order Comment: Speci men Type: URINE SPECIMEN Ordering Facility: [facility] Address: [address] [place] [address] Performed By: #### 2 4356-8 #### [facility] CLIA [id number] [address] Ketones Ql (U) Negative Normal Negative, Trace [facility] Comment on above: Order Comment: Speci men Type: URINE SPECIMEN Ordering Facility: [facility] Address: [address] [place] [address] Performed By: #### 2 4356-8 #### [facility] CLIA [id number] [address] Leukocyte esterase Test strip Ql (U) 75 James/uL Abnormal Negative, 25 James/uL [facility] Comment on above: Order Comment: Speci men Type: URINE SPECIMEN Ordering Facility: [facility] Address: [address] [place] [address] Performed By: #### 2 4356-8 #### [facility] CLIA [id number] [address] Nitrite Ql (U) Negative Normal Negative [facility] Comment on above: Order Comment: Speci men Type: URINE SPECIMEN Ordering Facility: [facility] Address: [address] [place] [address] Performed By: #### 2 4356-8 #### [facility] CLIA [id number] [address] pH (U) 6.0 [pH] Normal 5.0-8.0 [facility] Comment on above: Order Comment: Speci men Type: URINE SPECIMEN Ordering Facility: [facility] Address: [address] [place] [address] Performed By: #### 2 4356-8 #### [facility] CLIA [id number] [address] Protein (U) [Mass/Vol] Trace Normal Trace , Negative [facility] Comment on above: Order Comment: Speci men Type: URINE SPECIMEN Ordering Facility: [facility] Address: [address] [place] [address] Performed By: #### 2 4356-8 #### [facility] CLIA [id number] [address] RBC LM.HPF (Urine sed) [#/Area] 0-3 /HPF Normal 0-3 /HPF [facility] Comment on above: Order Comment: Speci men Type: URINE SPECIMEN Ordering Facility: [facility] Address: [address] [place] [address] Performed By: #### 2 4356-8 #### [facility] CLIA [id number] [address] Specific gravity (U) [Rel density] 1.029 Normal 1.005-1.03 0 [facility] Comment on above: Order Comment: Speci men Type: URINE SPECIMEN Ordering Facility: [facility] Address: [address] [place] [address] Performed By: #### 2 4356-8 #### [facility] CLIA [id number] [address] Urobilinogen Ql (U) Normal Normal Normal [facility] Comment on above: Order Comment: Speci men Type: URINE SPECIMEN Ordering Facility: [facility] Address: [address] [place] [address] Performed By: #### 2 4356-8 #### [facility] CLIA [id number] [address] WBC LM.HPF (Urine sed) [#/Area] 6-10 /HPF Abnormal 0-5 /HPF [facility] Comment on above: Order Comment: Speci men Type: URINE SPECIMEN Ordering Facility: [facility] Address: [address] [place] [address] Performed By: #### 2 4356-8 #### [facility] CLIA [id number] [address] [facility] Valproate Free [Mass/Vol] 1.8 ug/mL Low 4.0-30.0 [facility] Comment on above: Order Comment: Speci men Type: BLOOD SPECIMEN Ordering Facility: [facility] Address: [address] [place] [address] Result Comment: Refe rence ranges and high/low indicator flags are provided as general guidelines only. The treating physician must determine appropriate target levels/dosing based on the specific clinical situation. This test was developed, and its performance characteristics determined by the [facility] Department of Pathology and Laboratory Medicine. It has not been cleared or approved by the FDA. The [facility] Department of Pathology and Laboratory Medicine is regulated under CLIA as qualified to perform high-complexity testing. This test is used for clinical purposes. It should not be regarded as investigational or for research. Performed By: #### 4 087-3 #### [facility] CLIA [id number] [address] [place] [address] [place] Basic Metabolic Profile (BMP )on 08-17-2024 BUN/CRE 29.4 RATIO High 10-20 [facility] Comment on above: Performed By: #### L 3410.9998, L500.4050, L100.0500, L501.8100, L501.9520 #### [facility] [address] [place], [address] [place] 8.8 mg/dL Normal 8.5-10.1 [facility] Comment on above: Performed By: #### L 3410.9998, L500.4050, L100.0500, L501.8100, L501.9520 #### [facility] [facility] [address] [place], [address] Chloride [Moles/Vol] 110 mmol/L High 98-107 [facility] Comment on above: Performed By: #### L 3410.9998, L500.4050, L100.0500, L501.8100, L501.9520 #### [facility] [address] [place], [address] CO2 [Moles/Vol] 25.0 mmol/L Normal 21.0-32.0 [facility] Comment on above: Performed By: #### L 3410.9998, L500.4050, L100.0500, L501.8100, L501.9520 #### [facility] [address] [place], [address] Creatinine [Mass/Vol] 0.75 mg/dL Normal 0.55-1.02 [facility] Comment on above: Result Comment: The validity of the calculated GFR GFRAA in patients over 70 years has not been determined. Clinical correlation is essential. Performed By: #### L 3410.9998, L500.4050, L100.0500, L501.8100, L501.9520 #### [facility] [address] [place], [address] ECRCL 63.42 ml/min Normal [facility] Comment on above: Performed By: #### L 3410.9998, L500.4050, L100.0500, L501.8100, L501.9520 #### [facility] [address] [place], [address] EST GFR - AA 97 mL/min Normal >60 [facility] Comment on above: Result Comment: Afri can Australian GFR Calc Performed By: #### L 3410.9998, L500.4050, L100.0500, L501.8100, L501.9520 #### [facility] [address] [place], [address] GAP 7 Normal 5-15 [facility] Comment on above: Performed By: #### L 3410.9998, L500.4050, L100.0500, L501.8100, L501.9520 #### [facility] [address] [place], [address] GFR/1.73 sq M.predicted among non-blacks MDRD (S/P/Bld) [Vol rate/Area] 80 mL/min/{1.73_m2} Normal >60 [facility] Comment on above: Result Comment: Non- GFR Calc Performed By: #### L 3410.9998, L500.4050, L100.0500, L501.8100, L501.9520 #### [facility] [address] [place], [address] Glucose [Mass/Vol] 102 mg/dL Normal 74-106 [facility] Comment on above: Result Comment: Fast ing Glucose result from 100 to 125 mg/dL suggests IMPAIRED HOMEOSTASIS per A.D.A. criteria. Performed By: #### L 3410.9998, L500.4050, L100.0500, L501.8100, L501.9520 #### [facility] [address] [place], [address] Potassium [Moles/Vol] 4.1 mmol/L Normal 3.5-5.1 [facility] Comment on above: Performed By: #### L 3410.9998, L500.4050, L100.0500, L501.8100, L501.9520 #### [facility] [address] [place], [address] Sodium [Moles/Vol] 142 mmol/L Normal 136-145 [facility] Comment on above: Performed By: #### L 3410.9998, L500.4050, L100.0500, L501.8100, L501.9520 #### [facility] [address] [place], [address] Urea nitrogen [Mass/Vol] 22 mg/dL High 7-18 [facility] Comment on above: Performed By: #### L 3410.9998, L500.4050, L100.0500, L501.8100, L501.9520 #### [facility] [address] [place], [address] Brain/Head without Contrasto n 08-17-2024 Brain/Head without Contrast [facility] Imaging Services [address] [place] [address] Brain/Head without Contrast MR#: [id number] Acct: [id number] Name: KATHERYN CHINO Rep #: [id number] : 1945 F 79 From: Parag Servin MD PCP: Ron SESAY, Todd Status: REG ER Study: Brain/Head without Contrast Date of Exam: 01/05 Exam# [id number] Ordering Dr: Hayes Nicholson DO [id number] EXAM: CT HEAD WITHOUT INTRAVENOUS CONTRAST CLINICAL [...] Signed: Parag Servin MD at 12:08 EST Reading Location ID and State: [facility] / [place] Tel , Service support , CC: Todd Velasquez MD; Dr. Hayes Nicholson DO Computer Discovery Teacher: Signed Normal [facility] CBC W/Diff, Automatedon Absolute Lymph 2.98 X10 3/uL Normal 0.83-4.51 [facility] Comment on above: Performed By: #### L 3410.9998, L500.4050, L100.0500, L501.8100, L501.9520 #### [facility] [address] [place], [address] Absolute Neut 4.1 X10 3/uL Normal 2.0-7.7 [facility] Comment on above: Performed By: #### L 3410.9998, L500.4050, L100.0500, L501.8100, L501.9520 #### [facility] [address] [place], [address] Basophils/100 WBC (Bld) 0.9 % Normal 0-1 [facility] Comment on above: Performed By: #### L 3410.9998, L500.4050, L100.0500, L501.8100, L501.9520 #### [facility] [address] [place], [address] Eosinophils/100 WBC (Bld) 0.7 % Normal 0-5 [facility] Comment on above: Performed By: #### L 3410.9998, L500.4050, L100.0500, L501.8100, L501.9520 #### [facility] [address] [place], [address] Erythrocyte distribution width (RBC) [Ratio] 13.6 % Normal 11.6-14.6 [facility] Comment on above: Performed By: #### L 3410.9998, L500.4050, L100.0500, L501.8100, L501.9520 #### [facility] [address] [place], [address] Hematocrit (Bld) [Volume fraction] 38.5 % Normal 37-47 [facility] Comment on above: Performed By: #### L 3410.9998, L500.4050, L100.0500, L501.8100, L501.9520 #### [facility] [address] [place], [address] Hemoglobin (Bld) [Mass/Vol] 12.5 g/dL Normal 12.0-15.0 [facility] Comment on above: Performed By: #### L 3410.9998, L500.4050, L100.0500, L501.8100, L501.9520 #### [facility] [address] [place], [address] IG% 0.700 Normal 0.0-0.9 [facility] Comment on above: Result Comment: IG% - Immature Granulocytes (promyelocytes, myelocytes and metamyelocytes) > 1% indicates that a LEFT SHIFT is Present. Performed By: #### L 3410.9998, L500.4050, L100.0500, L501.8100, L501.9520 #### [facility] [address] [place], [address] Lymphocytes/100 WBC (Bld) 37.2 % Normal 19-41 [facility] Comment on above: Performed By: #### L 3410.9998, L500.4050, L100.0500, L501.8100, L501.9520 #### [facility] [address] [place], [address] MCH (RBC) [Entitic mass] 29.6 pg Normal 27.0-32.0 [facility] Comment on above: Performed By: #### L 3410.9998, L500.4050, L100.0500, L501.8100, L501.9520 #### [facility] [address] [place], [address] MCHC (RBC) [Mass/Vol] 32.5 g/dL Normal 32-36 [facility] Comment on above: Performed By: #### L 3410.9998, L500.4050, L100.0500, L501.8100, L501.9520 #### [facility] [address] [place], [address] MCV (RBC) [Entitic vol] 91.0 fL Normal 81-99 [facility] Comment on above: Performed By: #### L 3410.9998, L500.4050, L100.0500, L501.8100, L501.9520 #### [facility] [address] [place], [address] Monocytes/100 WBC (Bld) 9.5 % Normal 0-10 [facility] Comment on above: Performed By: #### L 3410.9998, L500.4050, L100.0500, L501.8100, L501.9520 #### [facility] [address] [place], [address] Neutrophils/100 WBC (Bld) 51.0 % Normal 47-70 [facility] Comment on above: Performed By: #### L 3410.9998, L500.4050, L100.0500, L501.8100, L501.9520 #### [facility] [address] [place], [address] Nucleated RBC (Bld) [#/Vol] 0 10*3/uL Normal 0-5 [facility] Comment on above: Performed By: #### L 3410.9998, L500.4050, L100.0500, L501.8100, L501.9520 #### [facility] [address] [place], [address] Platelet mean volume (Bld) [Entitic vol] 11.1 fL Normal 6.2-12.0 [facility] Comment on above: Performed By: #### L 3410.9998, L500.4050, L100.0500, L501.8100, L501.9520 #### [facility] [address] [place], [address] Platelets (Bld) [#/Vol] 197 10*3/uL Normal 150-450 [facility] Comment on above: Performed By: #### L 3410.9998, L500.4050, L100.0500, L501.8100, L501.9520 #### [facility] [address] [place], [address] RBC (Bld) [#/Vol] 4.23 10*6/uL Normal 4.2-5.4 [facility] Comment on above: Performed By: #### L 3410.9998, L500.4050, L100.0500, L501.8100, L501.9520 #### [facility] [address] [place], [address] RDW SD 45.6 fl High 35.1-43.9 [facility] Comment on above: Performed By: #### L 3410.9998, L500.4050, L100.0500, L501.8100, L501.9520 #### [facility] [address] [place], [address] WBC (Bld) [#/Vol] 8.0 10*3/uL Normal 4.4-11.0 [facility] Comment on above: Performed By: #### L 3410.9998, L500.4050, L100.0500, L501.8100, L501.9520 #### [facility] [address] [place], [address] CNPAni 08-17-2024 [facility] Telephone (NEURTE) -------- KATHERYN CHINO ([id number]) 1945 F Date Time Provider Department 08/17/24 FRANCISCO JAVIER SALAZAR During your visit today, we recorded the following information about you: Francisco Javier Salazar MD 08/17/2024 11:50 AM Signed I received a call from the emergency room at [facility] regarding a patient of Dr. Nava. Patient has been seen by Dr. Nava in 2019. This is a patient with developmental delay and epilepsy. She has primary generalized seizures. Previous notes:Review of records for Katheryn Gossard, a 74 year old developmentally delayed female, being referred by Dr. 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 She is wheelchair bound with struggles with dysphasia; her brother is ERNESTINE. EEG report (08/2018) noted "This EEG supports [...] free 3 years. Visit with epileptologist at [facility] and long EEG are indicated at this time due to rare seizures. Events on 08/17/2024 Patient had a 15-minute seizure in the residential. She had not had any seizures recently. [...] Patient has not been seen in the [facility] system since 2019. At the minimum she needs an evaluation to reassess her epilepsy. Francisco Javier Salazar MD Neurology. (Telemedicine neurologist) Allergies As of Date: 08/17/2024 (No Known Allergies) Date Reviewed: 09/01/2019 Reviewed by: Katalina Al ([facility]) - Fully Assessed Prescriptions as of 08/17/2024 [...] losartan potassium (more content not included)... Normal [facility] Chest 1 View (Portable)on Chest 1 View (Portable) [facility] Imaging Services [address] [place] [address] Chest 1 View (Portable) MR#: [id number] Acct: [id number] Name: KATHERYN CHINO Rep #: [id number] : 1945 F 79 From: Rudy Jimenez PCP: Ron SESAY, Todd Status: REG ER Study: Chest 1 View (Portable) Date of Exam: 08/17/24 Exam# [id number] Ordering Dr: Ariel Yang DO [id number] EXAM: XR CHEST, 1 VIEW CLINICAL INDICATION: [...] CC: Todd Velasquez MD; Ariel Yang DO Computer Discovery Teacher: Signed Normal [facility] Emergency Department Summary on 08-17-2024 Emergency Department Summary [facility] Medical Records Department [address] [place] [address] Emergency Department Summary 08/17/24 MR#: [id number] Acct: [id number] Name: KATHERYN CHINO Rep #: [id number] : 1945 79 From: Ariel Yang DO PCP: Ron SESAY, Todd Status:REG ER Location: ED ADDENDUM by Dr. Hayes Nicholson DO on 08/17/24 at 1241 Update: 1239 hrs.: Patient's ride back to residential arrived. The patient then entered a generalized seizure again. This required a total of 2 mg of Ativan to abort. Patient did require some supplemental oxygen. 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 I spoke with on-call neurology through [facility]. Recommended giving a gram of Keppra. We spoke with the patient's brother who is the POA. He states that this is atypical for the patient's seizures as typically they are short and she has a postictal timeframe and then achieves baseline but does not typically receives. We do not have in-house neurology/EEG today. Recommendation is for transfer. I spoke with [facility] And the patient has been accepted. [...] lasting 8 to 10 minutes at the residential where she was "unresponsive and foaming at the mouth". She states she does not remember any event other than the people at the residential telling her this. She states she has been feeling fine otherwise and she has been taking her medications as directed as she has been getting them from the residential staff. However based on the reported breakthrough seizure that occurred this morning she was sent in for further evaluation [facility] Medical History Dysphagia, oropharyngeal phase Generalized anxiety [...] mg PO (more content not included)... 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 Normal [facility] NURSING PROGon 08-17-2024 NURSING PROG HNO ID: [id number] Author: MCKINLEY DUNN, RN Service: Nursing Author Type: Registered Nurse Type: Nursing Progress Note Filed: 08/18/2024 01:29 Note Text: Other: Pt admitted from [place] ED via ems. Pt arouses to name called. Pt is not speaking. Pt siderails padded. Call light in reach. Bed low and alarm activated. Vss. No distress observed at this time. Normal [facility] Urinalysis, Completeon 08-17 EPI,SQUAMOUS 0-5 SEEN Normal 5-10 [facility] Comment on above: Order Comment: 211.2 Performed By: #### L 3410.9998, L500.4050, L100.0500, L501.8100, L501.9520 #### [facility] [address] [place], [address] BACTERIA 0 SEEN Normal None Seen [facility] Comment on above: Order Comment: 211.2 Performed By: #### L 3410.9998, L500.4050, L100.0500, L501.8100, L501.9520 #### [facility] [address] [place], [address] Mucus Ql (Urine sed) 0 SEEN Normal [facility] Comment on above: Order Comment: 211.2 Performed By: #### L 3410.9998, L500.4050, L100.0500, L501.8100, L501.9520 #### [facility] [address] [place], [address] RBC 0 SEEN Normal 0-5 [facility] Comment on above: Order Comment: 211.2 Performed By: #### L 3410.9998, L500.4050, L100.0500, L501.8100, L501.9520 #### [facility] [address] [place], [address] WBC 0 SEEN Normal 0-5 [facility] Comment on above: Order Comment: 211.2 Performed By: #### L 3410.9998, L500.4050, L100.0500, L501.8100, L501.9520 #### [facility] [address] [place], [address] Valproic Acid (Depakene) Lev maribell 08-17-2024 VALPROIC ACID 101 ug/mL High 50-100 [facility] Comment on above: Performed By: #### L 3410.9998, L500.4050, L100.0500, L501.8100, L501.9520 #### [facility] [address] [place], [address] Basic Metabolic Profile (BMP )on 08-14-2024 BUN/CRE 20.9 RATIO High 10-20 [facility] Comment on above: Order Comment: 211.2 Performed By: #### L 500.2500, L100.0500 #### [facility] [address] [place], [address] CA,Total 9.1 mg/dL Normal 8.5-10.1 [facility] Comment on above: Order Comment: 211.2 Performed By: #### L 500.2500, L100.0500 #### [facility] [address] [place], [address] Chloride [Moles/Vol] 109 mmol/L High 98-107 [facility] Comment on above: Order Comment: 211.2 Performed By: #### L 500.2500, L100.0500 #### [facility] [address] [place], [address] CO2 [Moles/Vol] 25.0 mmol/L Normal 21.0-32.0 [facility] Comment on above: Order Comment: 211.2 Performed By: #### L 500.2500, L100.0500 #### [facility] [address] [place], [address] Creatinine [Mass/Vol] 0.81 mg/dL Normal 0.55-1.02 [facility] Comment on above: Order Comment: 211.2 Result Comment: The validity of the calculated GFR GFRAA in patients over 70 years has not been determined. Clinical correlation is essential. Performed By: #### L 500.2500, L100.0500 #### [facility] [address] [place], [address] EST GFR - AA 88 mL/min Normal >60 [facility] Comment on above: Order Comment: 211.2 Result Comment: Afri can Australian GFR Calc Performed By: #### L 500.2500, L100.0500 #### [facility] [address] [place], [address] GAP 6 Normal 5-15 [facility] Comment on above: Order Comment: 211.2 Performed By: #### L 500.2500, L100.0500 #### [facility] [address] [place], [address] GFR/1.73 sq M.predicted among non-blacks MDRD (S/P/Bld) [Vol rate/Area] 73 mL/min/{1.73_m2} Normal >60 [facility] Comment on above: Order Comment: 211.2 Result Comment: Non- GFR Calc Performed By: #### L 500.2500, L100.0500 #### [facility] [address] [place], [address] Glucose [Mass/Vol] 93 mg/dL Normal 74-106 [facility] Comment on above: Order Comment: 211.2 Performed By: #### L 500.2500, L100.0500 #### [facility] [address] [place], [address] Potassium [Moles/Vol] 4.4 mmol/L Normal 3.5-5.1 [facility] Comment on above: Order Comment: 211.2 Performed By: #### L 500.2500, L100.0500 #### [facility] [address] [place], [address] Sodium [Moles/Vol] 140 mmol/L Normal 136-145 [facility] Comment on above: Order Comment: 211.2 Performed By: #### L 500.2500, L100.0500 #### [facility] [address] [place], [address] Urea nitrogen [Mass/Vol] 17 mg/dL Normal 7-18 [facility] Comment on above: Order Comment: 211.2 Performed By: #### L 500.2500, L100.0500 #### [facility] [address] [place], [address] CBC-Complete Blood Cnt No Di ffon 08-14-2024 Erythrocyte distribution width (RBC) [Ratio] 13.7 % Normal 11.6-14.6 [facility] Comment on above: Order Comment: 211.2 Performed By: #### L 500.2500, L100.0500 #### [facility] [address] [place], [address] Hematocrit (Bld) [Volume fraction] 36.1 % Low 37-47 [facility] Comment on above: Order Comment: 211.2 Performed By: #### L 500.2500, L100.0500 #### [facility] [address] [place], [address] Hemoglobin (Bld) [Mass/Vol] 11.9 g/dL Low 12.0-15.0 [facility] Comment on above: Order Comment: 211.2 Performed By: #### L 500.2500, L100.0500 #### [facility] [address] [place], [address] MCH (RBC) [Entitic mass] 30.4 pg Normal 27.0-32.0 [facility] Comment on above: Order Comment: 211.2 Performed By: #### L 500.2500, L100.0500 #### [facility] [address] [place], [address] MCHC (RBC) [Mass/Vol] 33.0 g/dL Normal 32-36 [facility] Comment on above: Order Comment: 211.2 Performed By: #### L 500.2500, L100.0500 #### [facility] [address] [place], [address] MCV (RBC) [Entitic vol] 92.3 fL Normal 81-99 [facility] Comment on above: Order Comment: 211.2 Performed By: #### L 500.2500, L100.0500 #### [facility] [address] [place], [address] Platelet mean volume (Bld) [Entitic vol] 11.8 fL Normal 6.2-12.0 [facility] Comment on above: Order Comment: 211.2 Performed By: #### L 500.2500, L100.0500 #### [facility] [address] [place], [address] Platelets (Bld) [#/Vol] 168 10*3/uL Normal 150-450 [facility] Comment on above: Order Comment: 211.2 Performed By: #### L 500.2500, L100.0500 #### [facility] [address] [place], [address] RBC (Bld) [#/Vol] 3.91 10*6/uL Low 4.2-5.4 [facility] Comment on above: Order Comment: 211.2 Performed By: #### L 500.2500, L100.0500 #### [facility] [address] [place], [address] RDW SD 46.5 fl High 35.1-43.9 [facility] Comment on above: Order Comment: 211.2 Performed By: #### L 500.2500, L100.0500 #### [facility] [address] [place], [address] WBC (Bld) [#/Vol] 5.4 10*3/uL Normal 4.4-11.0 [facility] Comment on above: Order Comment: 211.2 Performed By: #### L 500.2500, L100.0500 #### [facility] [address] [place], [address] No Panel InformationOrdered By: Todd Velasquez on 11-05-2023 Valproic Acid (Depakene) Level 95 ug/mL 50-100 [facility] Absolute lymphocyte countOrd ered By: Todd Velasquez on 10-29-2023 Lymphocytes Auto (Unsp spec) [#/Vol] 2.23 10*3/uL 0.83-4.51 [facility] Basophil percentageOrdered B y: Todd Velasquez on 10-29-2023 Basophils/100 WBC (Bld) 0.7 % 0-1 [facility] Bilirubin [Mass/Vol] 0.40 mg/dL 0.20-1.00 [facility] Comment on above: For patients on eltr ombopag therapy, use of Dimension [place] TBIL is not recommended. Chloride [Moles/Vol] 106 mmol/L 98-107 [facility] Eosinophils/100 WBC (Bld) 1.6 % 0-5 [facility] Glucose [Mass/Vol] 88 mg/dL 74-106 [facility] Neutrophils (Bld) [#/Vol] 4.7 10*3/uL 2.0-7.7 [facility] Neutrophils/100 WBC (Bld) 58.1 % 47-70 [facility] Potassium [Moles/Vol] 4.3 mmol/L 3.5-5.1 [facility] Protein [Mass/Vol] 7.0 g/dL 6.4-8.2 [facility] Sodium [Moles/Vol] 139 mmol/L 136-145 [facility] WBC (Bld) [#/Vol] 8.1 10*3/uL 4.4-11.0 [facility] Blood erythrocytes count (nu mber/volume)Ordered By: Todd Velasquez on 10-29-2023 RBC (Bld) [#/Vol] 3.91 10*6/uL 4.2-5.4 [facility] Blood hemoglobin measurement (mass/volume)Ordered By: Todd Velasquez on 10-29-2023 Hemoglobin (Bld) [Mass/Vol] 12.1 g/dL 12.0-15.0 [facility] Blood lymphocytes/100 leukoc ytesOrdered By: Todd Velasquez on 10-29-2023 Lymphocytes/100 WBC (Bld) 27.7 % 19-41 [facility] Blood monocytes/100 leukocyt esOrdered By: Todd Velasquez on 10-29-2023 Monocytes/100 WBC (Bld) 11.4 % 0-10 [facility] Blood platelet mean volumeOr dered By: Todd Velasquez on 10-29-2023 Platelet mean volume (Bld) [Entitic vol] 11.4 fL 6.2-12.0 [facility] Determination of erythrocyte mean corpuscular volume (MCV)Ordered By: Todd Velasquez on 10-29-2023 MCV (RBC) [Entitic vol] 93.9 fL 81-99 [facility] Hematocrit Auto (Bld) [Volum e fraction]Ordered By: Todd Velasquez on 10-29-2023 Hematocrit (Bld) [Volume fraction] 36.7 % 37-47 [facility] - Chemistry and C hemistry - challengeOrdered By: Todd Velasquez on 10-29-2023 ALP [Catalytic activity/Vol] 103 U/L 45-117 [facility] ALT [Catalytic activity/Vol] 12 U/L 13-56 [facility] CO2 [Moles/Vol] 26.0 mmol/L 21.0-32.0 [facility] Globulin (S) [Mass/Vol] 3.8 g/dL 2.2-4.2 [facility] [facility] Urea nitrogen/Creatinine [Mass ratio] 18.9 mg/mg 10-20 [facility] - Hematology and Cell countsOrdered By: Todd Velasquez on 10-29-2023 Erythrocyte distribution width (RBC) [Entitic vol] 44.3 fL 35.1-43.9 [facility] Erythrocyte distribution width (RBC) [Ratio] 13.0 % 11.6-14.6 [facility] Immature granulocytes/100 WBC (Bld) 0.500 % 0.0-0.9 [facility] Comment on above: IG% - Immature Granu locytes (promyelocytes, myelocytes and metamyelocytes) > 1% indicates that a LEFT SHIFT is Present. MCH (RBC) [Entitic mass] 30.9 pg 27.0-32.0 [facility] Nucleated RBC/100 WBC (Bld) [Ratio] 0 % 0-5 [facility] Auto (RBC) [Mass/Vol]Or dered By: Todd Velasquez on 10-29-2023 MCHC (RBC) [Mass/Vol] 33.0 g/dL 32-36 [facility] No Panel InformationOrdered By: Todd Velasquez on 10-29-2023 Estimated GFR (MDRD) Amer 107 mL/min >60 [facility] Comment on above: GFR Calc Estimated GFR (MDRD) Non-Af Amer 88 mL/min >60 [facility] Comment on above: Non- GFR Calc Valproic Acid (Depakene) Level 116 ug/mL 50-100 [facility] Platelets bldOrdered By: Ignacia Velasquez on 10-29-2023 Platelets (Bld) [#/Vol] 194 10*3/uL 150-450 [facility] Serum or plasma albumin jacob urement (mass/volume)Ordered By: Todd Velasquez on 10-29-2023 Albumin [Mass/Vol] 3.2 g/dL 3.2-5.0 [facility] Serum or plasma albumin/glob ulin mass ratioOrdered By: Todd Velasquez on 10-29-2023 Albumin/Globulin [Mass ratio] 0.8 {ratio} 0.9-2.4 [facility] Serum or plasma calcium jacob urement (mass/volume)Ordered By: Todd Velasquez on 10-29-2023 Calcium [Mass/Vol] 9.2 mg/dL 8.5-10.1 [facility] Serum or plasma creatinine m easurement (mass/volume)Ordered By: Todd Velasquez on 10-29-2023 Creatinine [Mass/Vol] 0.69 mg/dL 0.55-1.02 [facility] Comment on above: The validity of the calculated GFR & GFRAA in patients over 70 years has not been determined. Clinical correlation is essential. Serum or plasma phenytoin me asurement (mass/volume)Ordered By: Todd Velasquez on 10-29-2023 Phenytoin [Mass/Vol] 7.4 mL 10.0-20.0 [facility] Serum or plasma urea nitroge n measurement (mass/volume)Ordered By: Todd Velasquez on 10-29-2023 Urea nitrogen [Mass/Vol] 13 mg/dL 7-18 [facility] Thin prep Papanicolaou smear with manual screeningOrdered By: Todd Velasquez on 10-29-2023 Thin prep Papanicolaou smear with manual screening 19 U/L 15-37 [facility] Thin prep Papanicolaou smear with manual screening 7 5-15 [facility] Serum or plasma phenytoin me asurement (mass/volume)Ordered By: Todd Velasquez on 09-25-2023 Phenytoin [Mass/Vol] 9.6 mL 10.0-20.0 [facility] Absolute lymphocyte countOrd ered By: Kee Amezquita on 09-18-2023 Lymphocytes Auto (Unsp spec) [#/Vol] 1.37 10*3/uL 0.83-4.51 [facility] Basophil percentageOrdered B y: Kee Amezquita on 09-18-2023 Basophils/100 WBC (Bld) 1.0 % 0-1 [facility] Chloride [Moles/Vol] 106 mmol/L 98-107 [facility] Eosinophils/100 WBC (Bld) 1.6 % 0-5 [facility] Glucose [Mass/Vol] 107 mg/dL 74-106 [facility] Comment on above: Fasting Glucose resu lt from 100 to 125 mg/dL suggests IMPAIRED HOMEOSTASIS per A.D.A. criteria. Neutrophils (Bld) [#/Vol] 3.7 10*3/uL 2.0-7.7 [facility] Neutrophils/100 WBC (Bld) 64.8 % 47-70 [facility] Potassium [Moles/Vol] 4.0 mmol/L 3.5-5.1 [facility] Sodium [Moles/Vol] 138 mmol/L 136-145 [facility] WBC (Bld) [#/Vol] 5.7 10*3/uL 4.4-11.0 [facility] Blood erythrocytes count (nu mber/volume)Ordered By: Kee Amezquita on 09-18-2023 RBC (Bld) [#/Vol] 4.37 10*6/uL 4.2-5.4 [facility] Blood hemoglobin measurement (mass/volume)Ordered By: Kee Amezquita on 09-18-2023 Hemoglobin (Bld) [Mass/Vol] 13.4 g/dL 12.0-15.0 [facility] Blood lymphocytes/100 leukoc ytesOrdered By: Kee Amezquita on 09-18-2023 Lymphocytes/100 WBC (Bld) 23.9 % 19-41 [facility] Blood monocytes/100 leukocyt esOrdered By: Kee Amezquita on 09-18-2023 Monocytes/100 WBC (Bld) 8.0 % 0-10 [facility] Blood platelet mean volumeOr dered By: Kee Amezquita on 09-18-2023 Platelet mean volume (Bld) [Entitic vol] 10.9 fL 6.2-12.0 [facility] Determination of erythrocyte mean corpuscular volume (MCV)Ordered By: Kee Amezquita on 09-18-2023 MCV (RBC) [Entitic vol] 93.8 fL 81-99 [facility] Hematocrit Auto (Bld) [Volum e fraction]Ordered By: Kee Amezquita on 09-18-2023 Hematocrit (Bld) [Volume fraction] 41.0 % 37-47 [facility] - Chemistry and C hemistry - challengeOrdered By: Kee Amezquita on 09-18-2023 CO2 [Moles/Vol] 26.0 mmol/L 21.0-32.0 [facility] Urea nitrogen/Creatinine [Mass ratio] 16.6 mg/mg 10-20 [facility] - Hematology and Cell countsOrdered By: Kee Amezquita on 09-18-2023 Erythrocyte distribution width (RBC) [Entitic vol] 43.6 fL 35.1-43.9 [facility] Erythrocyte distribution width (RBC) [Ratio] 12.5 % 11.6-14.6 [facility] Immature granulocytes/100 WBC (Bld) 0.700 % 0.0-0.9 [facility] Comment on above: IG% - Immature Granu locytes (promyelocytes, myelocytes and metamyelocytes) > 1% indicates that a LEFT SHIFT is Present. MCH (RBC) [Entitic mass] 30.7 pg 27.0-32.0 [facility] Nucleated RBC/100 [facility] (Bld) [[facility]] 0 % 0-5 [facility] ([facility]) [Mass/Vol]Or dered By: Kee Amezquita on 09-18-2023 MCHC (RBC) [Mass/Vol] 32.7 g/dL 32-36 [facility] No Panel InformationOrdered By: Kee Amezquita on 09-18-2023 Estimated Creatinine Clearance Calc 41.33 ml/min [facility] Estimated GFR (MDRD) Amer 92 mL/min >60 [facility] Comment on above: GFR Calc Estimated GFR (MDRD) Non-Af Amer 76 mL/min >60 [facility] Comment on above: Non- GFR Calc Valproic Acid (Depakene) Level 70 ug/mL 50-100 [facility] Platelets bldOrdered By: Praneeth Amezquita on 09-18-2023 Platelets (Bld) [#/Vol] 210 10*3/uL 150-450 [facility] Serum or plasma calcium jacob urement (mass/volume)Ordered By: Kee Amezquita on 09-18-2023 Calcium [Mass/Vol] 9.1 mg/dL 8.5-10.1 [facility] Serum or plasma creatinine m easurement (mass/volume)Ordered By: Kee Amezquita on 09-18-2023 Creatinine [Mass/Vol] 0.78 mg/dL 0.55-1.02 [facility] Comment on above: The validity of the calculated GFR & GFRAA in patients over 70 years has not been determined. Clinical correlation is essential. Serum or plasma phenytoin me asurement (mass/volume)Ordered By: Kee Amezquita on 09-18-2023 Phenytoin [Mass/Vol] 9.6 mL 10.0-20.0 [facility] Serum or plasma urea nitroge n measurement (mass/volume)Ordered By: Kee Amezquita on 09-18-2023 Urea nitrogen [Mass/Vol] 13 mg/dL 7-18 [facility] Thin prep Papanicolaou smear with manual screeningOrdered By: Kee Amezquita on 09-18-2023 Thin prep Papanicolaou smear with manual screening 6 5-15 [facility] No Panel InformationOrdered By: Todd Velasquez on 08-15-2023 Valproic Acid (Depakene) Level 91 ug/mL 50-100 [facility] Serum or plasma phenytoin me asurement (mass/volume)Ordered By: Todd Velasquez on 08-15-2023 Phenytoin [Mass/Vol] 8.2 mL 10.0-20.0 [facility] Absolute lymphocyte countOrd ered By: Todd Velasquez on 08-06-2023 Lymphocytes Auto (Unsp spec) [#/Vol] 2.35 10*3/uL 0.83-4.51 [facility] Basophil percentageOrdered B y: Todd Velasquez on 08-06-2023 Basophils/100 WBC (Bld) 0.8 % 0-1 [facility] Bilirubin [Mass/Vol] 0.40 mg/dL 0.20-1.00 [facility] Comment on above: For patients on eltr ombopag therapy, use of Dimension [place] TBIL is not recommended. Chloride [Moles/Vol] 108 mmol/L 98-107 [facility] Eosinophils/100 WBC (Bld) 2.1 % 0-5 [facility] Glucose [Mass/Vol] 90 mg/dL 74-106 [facility] Neutrophils (Bld) [#/Vol] 3.0 10*3/uL 2.0-7.7 [facility] Neutrophils/100 WBC (Bld) 48.5 % 47-70 [facility] Potassium [Moles/Vol] 4.5 mmol/L 3.5-5.1 [facility] Protein [Mass/Vol] 6.7 g/dL 6.4-8.2 [facility] Sodium [Moles/Vol] 140 mmol/L 136-145 [facility] WBC (Bld) [#/Vol] 6.2 10*3/uL 4.4-11.0 [facility] Blood erythrocytes count (nu mber/volume)Ordered By: Todd Velasquez on 08-06-2023 RBC (Bld) [#/Vol] 3.90 10*6/uL 4.2-5.4 [facility] Blood hemoglobin measurement (mass/volume)Ordered By: Todd Velasquez on 08-06-2023 Hemoglobin (Bld) [Mass/Vol] 12.1 g/dL 12.0-15.0 [facility] Blood lymphocytes/100 leukoc ytesOrdered By: Todd Velasquez on 08-06-2023 Lymphocytes/100 WBC (Bld) 38.0 % 19-41 [facility] Blood monocytes/100 leukocyt esOrdered By: Todd Velasquez on 08-06-2023 Monocytes/100 WBC (Bld) 10.3 % 0-10 [facility] Blood platelet mean volumeOr dered By: Todd Velasquez on 08-06-2023 Platelet mean volume (Bld) [Entitic vol] 11.8 fL 6.2-12.0 [facility] Determination of erythrocyte mean corpuscular volume (MCV)Ordered By: Todd Velasquez on 08-06-2023 MCV (RBC) [Entitic vol] 95.9 fL 81-99 [facility] Hematocrit Auto (Bld) [Volum e fraction]Ordered By: Todd Velasquez on 08-06-2023 Hematocrit (Bld) [Volume fraction] 37.4 % 37-47 [facility] - Chemistry and C hemistry - challengeOrdered By: Todd Velasquez on 08-06-2023 ALP [Catalytic activity/Vol] 99 U/L 45-117 [facility] ALT [Catalytic activity/Vol] 18 U/L 13-56 [facility] CO2 [Moles/Vol] 29.0 mmol/L 21.0-32.0 [facility] Globulin (S) [Mass/Vol] 3.6 g/dL 2.2-4.2 [facility] Urea nitrogen/Creatinine [Mass ratio] 21.8 mg/mg 10-20 [facility] - Hematology and Cell countsOrdered By: Todd Velasquez on 08-06-2023 Erythrocyte distribution width (RBC) [Entitic vol] 46.5 fL 35.1-43.9 [facility] Erythrocyte distribution width (RBC) [Ratio] 13.1 % 11.6-14.6 [facility] Immature granulocytes/100 WBC (Bld) 0.300 % 0.0-0.9 [facility] Comment on above: IG% - Immature Granu locytes (promyelocytes, myelocytes and metamyelocytes) > 1% indicates that a LEFT SHIFT is Present. MCH (RBC) [Entitic mass] 31.0 pg 27.0-32.0 [facility] Nucleated RBC/100 WBC (Bld) [Ratio] 0 % 0-5 [facility] MCHC Auto (RBC) [Mass/Vol]Or dered By: Todd Velasquez on 08-06-2023 MCHC (RBC) [Mass/Vol] 32.4 g/dL 32-36 [facility] No Panel InformationOrdered By: Todd Velasquez on 08-06-2023 Estimated GFR (MDRD) Amer 99 mL/min >60 [facility] Comment on above: GFR Calc Estimated GFR (MDRD) Non-Af Amer 82 mL/min >60 [facility] Comment on above: Non- GFR Calc Valproic Acid (Depakene) Level 102 ug/mL 50-100 [facility] Platelets bldOrdered By: Ignacia Velasquez on 08-06-2023 Platelets (Bld) [#/Vol] 169 10*3/uL 150-450 [facility] Serum or plasma albumin jacob urement (mass/volume)Ordered By: Todd Velasquez on 08-06-2023 Albumin [Mass/Vol] 3.1 g/dL 3.2-5.0 [facility] Serum or plasma albumin/glob ulin mass ratioOrdered By: Todd Velasquez on 08-06-2023 Albumin/Globulin [Mass ratio] 0.9 {ratio} 0.9-2.4 [facility] Serum or plasma calcium jacob urement (mass/volume)Ordered By: Todd Velasquez on 08-06-2023 Calcium [Mass/Vol] 8.9 mg/dL 8.5-10.1 [facility] Serum or plasma creatinine m easurement (mass/volume)Ordered By: Todd Velasquez on 08-06-2023 Creatinine [Mass/Vol] 0.74 mg/dL 0.55-1.02 [facility] Comment on above: The validity of the calculated GFR & GFRAA in patients over 70 years has not been determined. Clinical correlation is essential. Serum or plasma phenytoin me asurement (mass/volume)Ordered By: Todd Velasquez on 08-06-2023 Phenytoin [Mass/Vol] 7.0 mL 10.0-20.0 [facility] Serum or plasma urea nitroge n measurement (mass/volume)Ordered By: Todd Velasquez on 08-06-2023 Urea nitrogen [Mass/Vol] 16 mg/dL 7-18 [facility] Thin prep Papanicolaou smear with manual screeningOrdered By: Todd Velasquez on 08-06-2023 Thin prep Papanicolaou smear with manual screening 16 U/L 15-37 [facility] Thin prep Papanicolaou smear with manual screening 3 5-15 [facility] Absolute lymphocyte countOrd ered By: Todd Velasquez on 05-14-2023 Lymphocytes Auto (Unsp spec) [#/Vol] 2.33 10*3/uL 0.83-4.51 [facility] Basophil percentageOrdered B y: Todd Velasquez on 05-14-2023 Basophils/100 WBC (Bld) 0.9 % 0-1 [facility] Bilirubin [Mass/Vol] 0.30 mg/dL 0.20-1.00 [facility] Comment on above: For patients on eltr ombopag therapy, use of Dim[place] TBIL is not recommended. Chloride [Moles/Vol] 107 mmol/L 98-107 [facility] Eosinophils/100 WBC (Bld) 2.0 % 0-5 [facility] Glucose [Mass/Vol] 87 mg/dL 74-106 [facility] Neutrophils (Bld) [#/Vol] 3.2 10*3/uL 2.0-7.7 [facility] Neutrophils/100 WBC (Bld) 50.0 % 47-70 [facility] Potassium [Moles/Vol] 4.7 mmol/L 3.5-5.1 [facility] Protein [Mass/Vol] 6.7 g/dL 6.4-8.2 [facility] Sodium [Moles/Vol] 138 mmol/L 136-145 [facility] WBC (Bld) [#/Vol] 6.4 10*3/uL 4.4-11.0 [facility] Blood erythrocytes count (nu mber/volume)Ordered By: Todd Velasquez on 05-14-2023 RBC (Bld) [#/Vol] 3.95 10*6/uL 4.2-5.4 [facility] Blood hemoglobin measurement (mass/volume)Ordered By: Todd Velasquez on 05-14-2023 Hemoglobin (Bld) [Mass/Vol] 12.2 g/dL 12.0-15.0 [facility] Blood lymphocytes/100 leukoc ytesOrdered By: Todd Velasquez on 05-14-2023 Lymphocytes/100 WBC (Bld) 36.5 % 19-41 [facility] Blood monocytes/100 leukocyt esOrdered By: Todd Velasquez on 05-14-2023 Monocytes/100 WBC (Bld) 10.3 % 0-10 [facility] Blood platelet mean volumeOr dered By: Todd Velasquez on 05-14-2023 Platelet mean volume (Bld) [Entitic vol] 12.1 fL 6.2-12.0 [facility] Determination of erythrocyte mean corpuscular volume (MCV)Ordered By: Todd Velasquez on 05-14-2023 MCV (RBC) [Entitic vol] 96.2 fL 81-99 [facility] Hematocrit Auto (Bld) [Volum e fraction]Ordered By: Todd Velasquez on 05-14-2023 Hematocrit (Bld) [Volume fraction] 38.0 % 37-47 [facility] - Chemistry and C hemistry - challengeOrdered By: Todd Velasquez on 05-14-2023 ALP [Catalytic activity/Vol] 111 U/L 45-117 [facility] ALT [Catalytic activity/Vol] 16 U/L 13-56 [facility] CO2 [Moles/Vol] 28.0 mmol/L 21.0-32.0 [facility] Globulin (S) [Mass/Vol] 3.5 g/dL 2.2-4.2 [facility] Urea nitrogen/Creatinine [Mass ratio] 28.6 mg/mg 10-20 [facility] - Hematology and Cell countsOrdered By: Todd Velasquez on 05-14-2023 Erythrocyte distribution width (RBC) [Entitic vol] 46.6 fL 35.1-43.9 [facility] Erythrocyte distribution width (RBC) [Ratio] 13.0 % 11.6-14.6 [facility] Immature granulocytes/100 WBC (Bld) 0.300 % 0.0-0.9 [facility] Comment on above: IG% - Immature Granu locytes (promyelocytes, myelocytes and metamyelocytes) > 1% indicates that a LEFT SHIFT is Present. MCH (RBC) [Entitic mass] 30.9 pg 27.0-32.0 [facility] Nucleated RBC/100 WBC (Bld) [Ratio] 0 % 0-5 [facility] MCHC Auto (RBC) [Mass/Vol]Or dered By: Todd Velasquez on 05-14-2023 MCHC (RBC) [Mass/Vol] 32.1 g/dL 32-36 [facility] No Panel InformationOrdered By: Todd Velasquez on 05-14-2023 Estimated GFR (MDRD) Amer 111 mL/min >60 [facility] Comment on above: GFR Calc Estimated GFR (MDRD) Non-Af Amer 92 mL/min >60 [facility] Comment on above: Non- GFR Calc Valproic Acid (Depakene) Level 62 ug/mL 50-100 [facility] Platelets bldOrdered By: Ignacia Velasquez on 05-14-2023 Platelets (Bld) [#/Vol] 175 10*3/uL 150-450 [facility] Serum or plasma albumin jacob urement (mass/volume)Ordered By: Todd Velasquez on 05-14-2023 Albumin [Mass/Vol] 3.2 g/dL 3.2-5.0 [facility] Serum or plasma albumin/glob ulin mass ratioOrdered By: Todd Velasquez on 05-14-2023 Albumin/Globulin [Mass ratio] 0.9 {ratio} 0.9-2.4 [facility] Serum or plasma calcium jacob urement (mass/volume)Ordered By: Todd Velasquez on 05-14-2023 Calcium [Mass/Vol] 8.8 mg/dL 8.5-10.1 [facility] Serum or plasma creatinine m easurement (mass/volume)Ordered By: Todd Velasquez on 05-14-2023 Creatinine [Mass/Vol] 0.66 mg/dL 0.55-1.02 [facility] Comment on above: The validity of the calculated GFR & GFRAA in patients over 70 years has not been determined. Clinical correlation is essential. Serum or plasma phenytoin me asurement (mass/volume)Ordered By: Todd Velasquez on 05-14-2023 Phenytoin [Mass/Vol] 8.9 mL 10.0-20.0 [facility] Serum or plasma urea nitroge n measurement (mass/volume)Ordered By: Todd Velasquez on 05-14-2023 Urea nitrogen [Mass/Vol] 19 mg/dL 7-18 [facility] Thin prep Papanicolaou smear with manual screeningOrdered By: Todd Velasquez on 05-14-2023 Thin prep Papanicolaou smear with manual screening 18 U/L 15-37 [facility] Thin prep Papanicolaou smear with manual screening 3 5-15 [facility] Absolute lymphocyte countOrd ered By: Todd Velasquez on 11-27-2022 Lymphocytes Auto (Unsp spec) [#/Vol] 2.72 10*3/uL 0.83-4.51 [facility] Basophil percentageOrdered B y: Todd Velasquez on 11-27-2022 Basophils/100 WBC (Bld) 0.6 % 0-1 [facility] Bilirubin [Mass/Vol] 0.20 mg/dL 0.20-1.00 [facility] Comment on above: For patients on eltr ombopag therapy, use of Dim[place] TBIL is not recommended. Chloride [Moles/Vol] 107 mmol/L 98-107 [facility] Eosinophils/100 WBC (Bld) 1.8 % 0-5 [facility] Glucose [Mass/Vol] 84 mg/dL 74-106 [facility] Neutrophils (Bld) [#/Vol] 3.2 10*3/uL 2.0-7.7 [facility] Neutrophils/100 WBC (Bld) 47.4 % 47-70 [facility] Potassium [Moles/Vol] 4.7 mmol/L 3.5-5.1 [facility] Protein [Mass/Vol] 7.5 g/dL 6.4-8.2 [facility] Sodium [Moles/Vol] 139 mmol/L 136-145 [facility] WBC (Bld) [#/Vol] 6.7 10*3/uL 4.4-11.0 [facility] Blood erythrocytes count (nu mber/volume)Ordered By: Todd Velasquez on 11-27-2022 RBC (Bld) [#/Vol] 3.67 10*6/uL 4.2-5.4 [facility] Blood hemoglobin measurement (mass/volume)Ordered By: Todd Velasquez on 11-27-2022 Hemoglobin (Bld) [Mass/Vol] 11.6 g/dL 12.0-15.0 [facility] Blood lymphocytes/100 leukoc ytesOrdered By: Todd Velasquez on 11-27-2022 Lymphocytes/100 WBC (Bld) 40.6 % 19-41 [facility] Blood monocytes/100 leukocyt esOrdered By: Todd Velasquez on 11-27-2022 Monocytes/100 WBC (Bld) 9.3 % 0-10 [facility] Blood platelet mean volumeOr dered By: Todd Velasquez on 11-27-2022 Platelet mean volume (Bld) [Entitic vol] 11.3 fL 6.2-12.0 [facility] Determination of erythrocyte mean corpuscular volume (MCV)Ordered By: Todd Velasquez on 11-27-2022 MCV (RBC) [Entitic vol] 97.3 fL 81-99 [facility] Hematocrit Auto (Bld) [Volum e fraction]Ordered By: Todd Velasquez on 11-27-2022 Hematocrit (Bld) [Volume fraction] 35.7 % 37-47 [facility] - Chemistry and C hemistry - challengeOrdered By: Todd Velasquez on 11-27-2022 ALP [Catalytic activity/Vol] 96 U/L 45-117 [facility] ALT [Catalytic activity/Vol] 14 U/L 13-56 [facility] CO2 [Moles/Vol] 27.0 mmol/L 21.0-32.0 [facility] Globulin (S) [Mass/Vol] 4.8 g/dL 2.2-4.2 [facility] Urea nitrogen/Creatinine [Mass ratio] 32.4 mg/mg 10-20 [facility] - Hematology and Cell countsOrdered By: Todd Velasquez on 11-27-2022 Erythrocyte distribution width (RBC) [Entitic vol] 47.7 fL 35.1-43.9 [facility] Erythrocyte distribution width (RBC) [Ratio] 13.2 % 11.6-14.6 [facility] Immature granulocytes/100 WBC (Bld) 0.300 % 0.0-0.9 [facility] Comment on above: IG% - Immature Granu locytes (promyelocytes, myelocytes and metamyelocytes) > 1% indicates that a LEFT SHIFT is Present. MCH (RBC) [Entitic mass] 31.6 pg 27.0-32.0 [facility] Nucleated RBC/100 WBC (Bld) [Ratio] 0 % 0-5 [facility] MCHC Auto (RBC) [Mass/Vol]Or dered By: Todd Velasquez on 11-27-2022 MCHC (RBC) [Mass/Vol] 32.5 g/dL 32-36 [facility] No Panel InformationOrdered By: Todd Velasquez on 11-27-2022 Estimated GFR (MDRD) Amer 115 mL/min >60 [facility] Comment on above: GFR Calc Estimated GFR (MDRD) Non-Af Amer 95 mL/min >60 [facility] Comment on above: Non- GFR Calc Valproic Acid (Depakene) Level 72 ug/mL 50-100 [facility] Platelets bldOrdered By: Ignacia Velasquez on 11-27-2022 Platelets (Bld) [#/Vol] 187 10*3/uL 150-450 [facility] Serum or plasma albumin jacob urement (mass/volume)Ordered By: Todd Velasquez on 11-27-2022 Albumin [Mass/Vol] 2.7 g/dL 3.2-5.0 [facility] Serum or plasma albumin/glob ulin mass ratioOrdered By: Todd Velasquez on 11-27-2022 Albumin/Globulin [Mass ratio] 0.6 {ratio} 0.9-2.4 [facility] Serum or plasma calcium jacob urement (mass/volume)Ordered By: Todd Velasquez on 11-27-2022 Calcium [Mass/Vol] 9.1 mg/dL 8.5-10.1 [facility] Serum or plasma creatinine m easurement (mass/volume)Ordered By: Todd Velasquez on 11-27-2022 Creatinine [Mass/Vol] 0.65 mg/dL 0.55-1.02 [facility] Comment on above: The validity of the calculated GFR & GFRAA in patients over 70 years has not been determined. Clinical correlation is essential. Serum or plasma phenytoin me asurement (mass/volume)Ordered By: Todd Velasquez on 11-27-2022 Phenytoin [Mass/Vol] 10.5 mL 10.0-20.0 [facility] Serum or plasma urea nitroge n measurement (mass/volume)Ordered By: Todd Velasquez on 11-27-2022 Urea nitrogen [Mass/Vol] 21 mg/dL 7-18 [facility] Thin prep Papanicolaou smear with manual screeningOrdered By: Todd Velasquez on 11-27-2022 Thin prep Papanicolaou smear with manual screening 16 U/L 15-37 [facility] Thin prep Papanicolaou smear with manual screening 5 5-15 [facility] Serum or plasma phenytoin me asurement (mass/volume)Ordered By: Todd Velasquez on 10-30-2022 Phenytoin [Mass/Vol] 9.8 mL 10.0-20.0 [facility] Basophil percentageOrdered B y: Todd Velasquez on 10-24-2022 Bilirubin [Mass/Vol] 0.30 mg/dL 0.20-1.00 [facility] Comment on above: For patients on eltr ombopag therapy, use of Dimension [place] TBIL is not recommended. Chloride [Moles/Vol] 106 mmol/L 98-107 [facility] Glucose [Mass/Vol] 80 mg/dL 74-106 [facility] Potassium [Moles/Vol] 4.0 mmol/L 3.5-5.1 [facility] Protein [Mass/Vol] 6.6 g/dL 6.4-8.2 [facility] Sodium [Moles/Vol] 141 mmol/L 136-145 [facility] WBC (Bld) [#/Vol] 6.5 10*3/uL 4.4-11.0 [facility] Blood erythrocytes count (nu mber/volume)Ordered By: Todd Velasquez on 10-24-2022 RBC (Bld) [#/Vol] 3.82 10*6/uL 4.2-5.4 [facility] Blood hemoglobin measurement (mass/volume)Ordered By: Todd Velasquez on 10-24-2022 Hemoglobin (Bld) [Mass/Vol] 12.4 g/dL 12.0-15.0 [facility] Blood platelet mean volumeOr dered By: Todd Velasquez on 10-24-2022 Platelet mean volume (Bld) [Entitic vol] 11.0 fL 6.2-12.0 [facility] Determination of erythrocyte mean corpuscular volume (MCV)Ordered By: Todd Velasquez on 10-24-2022 MCV (RBC) [Entitic vol] 95.5 fL 81-99 [facility] Hematocrit Auto (Bld) [Volum e fraction]Ordered By: Todd Velasquez on 10-24-2022 Hematocrit (Bld) [Volume fraction] 36.5 % 37-47 [facility] Laboratory - Chemistry and C hemistry - challengeOrdered By: Todd Velasquez on 10-24-2022 ALP [Catalytic activity/Vol] 92 U/L 45-117 [facility] ALT [Catalytic activity/Vol] 11 U/L 13-56 [facility] CO2 [Moles/Vol] 27.0 mmol/L 21.0-32.0 [facility] Globulin (S) [Mass/Vol] 4.1 g/dL 2.2-4.2 [facility] Urea nitrogen/Creatinine [Mass ratio] 20.3 mg/mg 10-20 [facility] Laboratory - Hematology and Cell countsOrdered By: Todd Velasquez on 10-24-2022 Erythrocyte distribution width (RBC) [Entitic vol] 43.8 fL 35.1-43.9 [facility] Erythrocyte distribution width (RBC) [Ratio] 12.7 % 11.6-14.6 [facility] MCH (RBC) [Entitic mass] 32.5 pg 27.0-32.0 [facility] Auto (RBC) [Mass/Vol]Or dered By: Todd Velasquez on 10-24-2022 MCHC (RBC) [Mass/Vol] 34.0 g/dL 32-36 [facility] No Panel InformationOrdered By: Todd Velasquez on 10-24-2022 Estimated GFR (MDRD) Amer 127 mL/min >60 [facility] Comment on above: GFR Calc Estimated GFR (MDRD) Non-Af Amer 105 mL/min >60 [facility] Comment on above: Non- GFR Calc Thyroid Stimulating Hormone (TSH) 3.19 uIU/mL 0.358-3.74 [facility] Valproic Acid (Depakene) Level 103 ug/mL 50-100 [facility] Platelets bldOrdered By: Ignacia Velasquez on 10-24-2022 Platelets (Bld) [#/Vol] 265 10*3/uL 150-450 [facility] Serum or plasma albumin jacob urement (mass/volume)Ordered By: Todd Velasquez on 10-24-2022 Albumin [Mass/Vol] 2.5 g/dL 3.2-5.0 [facility] Serum or plasma albumin/glob ulin mass ratioOrdered By: Todd Velasquez on 10-24-2022 Albumin/Globulin [Mass ratio] 0.6 {ratio} 0.9-2.4 [facility] Serum or plasma calcium jacob urement (mass/volume)Ordered By: Todd Velasquez on 10-24-2022 Calcium [Mass/Vol] 8.7 mg/dL 8.5-10.1 [facility] Serum or plasma creatinine m easurement (mass/volume)Ordered By: Todd Velasquez on 10-24-2022 Creatinine [Mass/Vol] 0.59 mg/dL 0.55-1.02 [facility] Comment on above: The validity of the calculated GFR & GFRAA in patients over 70 years has not been determined. Clinical correlation is essential. Serum or plasma phenytoin me asurement (mass/volume)Ordered By: Todd Velasquez on 10-24-2022 Phenytoin [Mass/Vol] 9.6 mL 10.0-20.0 [facility] Serum or plasma urea nitroge n measurement (mass/volume)Ordered By: Todd Velasquez on 10-24-2022 Urea nitrogen [Mass/Vol] 12 mg/dL 7-18 [facility] Thin prep Papanicolaou smear with manual screeningOrdered By: Todd Velasquez on 10-24-2022 Thin prep Papanicolaou smear with manual screening 13 U/L 15-37 [facility] Thin prep Papanicolaou smear with manual screening 8 5-15 [facility] Absolute lymphocyte countOrd ered By: Orville Mendoza on 09-04-2022 Lymphocytes Auto (Unsp spec) [#/Vol] 2.50 10*3/uL 0.83-4.51 [facility] Basophil percentageOrdered B y: Orville Mendoza on 09-04-2022 Basophils/100 WBC (Bld) 0.8 % 0-1 [facility] Bilirubin [Mass/Vol] 0.40 mg/dL 0.20-1.00 [facility] Comment on above: For patients on eltr ombopag therapy, use of Dimension [place] TBIL is not recommended. Chloride [Moles/Vol] 110 mmol/L 98-107 [facility] Eosinophils/100 WBC (Bld) 1.9 % 0-5 [facility] Glucose [Mass/Vol] 78 mg/dL 74-106 [facility] Neutrophils (Bld) [#/Vol] 2.9 10*3/uL 2.0-7.7 [facility] Neutrophils/100 WBC (Bld) 46.7 % 47-70 [facility] Potassium [Moles/Vol] 4.8 mmol/L 3.5-5.1 [facility] Protein [Mass/Vol] 6.5 g/dL 6.4-8.2 [facility] Sodium [Moles/Vol] 142 mmol/L 136-145 [facility] WBC (Bld) [#/Vol] 6.3 10*3/uL 4.4-11.0 [facility] Blood erythrocytes count (nu mber/volume)Ordered By: Orville Mendoza on 09-04-2022 RBC (Bld) [#/Vol] 3.96 10*6/uL 4.2-5.4 [facility] Blood hemoglobin measurement (mass/volume)Ordered By: Orville Mendoza on 09-04-2022 Hemoglobin (Bld) [Mass/Vol] 12.7 g/dL 12.0-15.0 [facility] Blood lymphocytes/100 leukoc ytesOrdered By: Orville Mendoza on 09-04-2022 Lymphocytes/100 WBC (Bld) 39.9 % 19-41 [facility] Blood monocytes/100 leukocyt esOrdered By: Orville Mendoza on 09-04-2022 Monocytes/100 WBC (Bld) 10.4 % 0-10 [facility] Blood platelet mean volumeOr dered By: Orville Mendoza on 09-04-2022 Platelet mean volume (Bld) [Entitic vol] 11.6 fL 6.2-12.0 [facility] Determination of erythrocyte mean corpuscular volume (MCV)Ordered By: Orville Mendoza on 09-04-2022 MCV (RBC) [Entitic vol] 96.0 fL 81-99 [facility] Hematocrit Auto (Bld) [Volum e fraction]Ordered By: Orville Mendoza on 09-04-2022 Hematocrit (Bld) [Volume fraction] 38.0 % 37-47 [facility] Laboratory - Chemistry and C hemistry - challengeOrdered By: Orville Mendoza on 09-04-2022 ALP [Catalytic activity/Vol] 108 U/L 45-117 [facility] ALT [Catalytic activity/Vol] 12 U/L 13-56 [facility] CO2 [Moles/Vol] 26.0 mmol/L 21.0-32.0 [facility] Globulin (S) [Mass/Vol] 3.6 g/dL 2.2-4.2 [facility] Urea nitrogen/Creatinine [Mass ratio] 25.3 mg/mg 10-20 [facility] Laboratory - Hematology and Cell countsOrdered By: Orville Mendoza on 09-04-2022 Erythrocyte distribution width (RBC) [Entitic vol] 45.3 fL 35.1-43.9 [facility] Erythrocyte distribution width (RBC) [Ratio] 12.7 % 11.6-14.6 [facility] Immature granulocytes/100 WBC (Bld) 0.300 % 0.0-0.9 [facility] Comment on above: IG% - Immature Granu locytes (promyelocytes, myelocytes and metamyelocytes) > 1% indicates that a LEFT SHIFT is Present. MCH (RBC) [Entitic mass] 32.1 pg 27.0-32.0 [facility] Nucleated RBC/100 WBC (Bld) [Ratio] 0 % 0-5 [facility] MCHC Auto (RBC) [Mass/Vol]Or dered By: Orville Mendoza on 09-04-2022 MCHC (RBC) [Mass/Vol] 33.4 g/dL 32-36 [facility] No Panel InformationOrdered By: Orville Mendoza on 09-04-2022 Estimated GFR (MDRD) Amer 138 mL/min >60 [facility] Comment on above: GFR Calc Estimated GFR (MDRD) Non-Af Amer 114 mL/min >60 [facility] Comment on above: Non- GFR Calc Valproic Acid (Depakene) Level 62 ug/mL 50-100 [facility] Platelets bldOrdered By: Russ Mendoza on 09-04-2022 Platelets (Bld) [#/Vol] 180 10*3/uL 150-450 [facility] Serum or plasma albumin jacob urement (mass/volume)Ordered By: Orville Mendoza on 09-04-2022 Albumin [Mass/Vol] 2.9 g/dL 3.2-5.0 [facility] Serum or plasma albumin/glob ulin mass ratioOrdered By: Orville Mendoza on 09-04-2022 Albumin/Globulin [Mass ratio] 0.8 {ratio} 0.9-2.4 [facility] Serum or plasma calcium jacob urement (mass/volume)Ordered By: Orville Mendoza on 09-04-2022 Calcium [Mass/Vol] 9.0 mg/dL 8.5-10.1 [facility] Serum or plasma creatinine m easurement (mass/volume)Ordered By: Orville Mendoza on 09-04-2022 Creatinine [Mass/Vol] 0.55 mg/dL 0.55-1.02 [facility] Comment on above: The validity of the calculated GFR & GFRAA in patients over 70 years has not been determined. Clinical correlation is essential. Serum or plasma phenytoin me asurement (mass/volume)Ordered By: Orville Mendoza on 09-04-2022 Phenytoin [Mass/Vol] 11.7 mL 10.0-20.0 [facility] Serum or plasma urea nitroge n measurement (mass/volume)Ordered By: Orville Mendoza on 09-04-2022 Urea nitrogen [Mass/Vol] 14 mg/dL 7-18 [facility] Thin prep Papanicolaou smear with manual screeningOrdered By: Orville Mendoza on 09-04-2022 Thin prep Papanicolaou smear with manual screening 16 U/L 15-37 [facility] Thin prep Papanicolaou smear with manual screening 6 5-15 [facility] Absolute lymphocyte counton 06-12-2022 Lymphocytes Auto (Unsp spec) [#/Vol] 2.92 10*3/uL 0.83-4.51 [facility] Work Phone: Basophil percentageon 2021 Basophils/100 WBC (Bld) 0.7 % 0-1 [facility] Work Phone: Bilirubin [Mass/Vol] 0.40 mg/dL 0.20-1.00 [facility] Work Phone: Comment on above: For patients on eltr ombopag therapy, use of Dimension [place] TBIL is not recommended. Chloride [Moles/Vol] 108 mmol/L 98-107 [facility] Work Phone: Eosinophils/100 WBC (Bld) 1.7 % 0-5 [facility] Work Phone: Glucose [Mass/Vol] 77 mg/dL 74-106 [facility] Work Phone: Neutrophils (Bld) [#/Vol] 3.4 10*3/uL 2.0-7.7 [facility] Work Phone: Neutrophils/100 WBC (Bld) 46.5 % 47-70 [facility] Work Phone: Potassium [Moles/Vol] 4.7 mmol/L 3.5-5.1 [facility] Work Phone: Protein [Mass/Vol] 6.5 g/dL 6.4-8.2 [facility] Work Phone: [phone] Sodium [Moles/Vol] 141 mmol/L 136-145 [facility] Work Phone: WBC (Bld) [#/Vol] 7.3 10*3/uL 4.4-11.0 [facility] Work Phone: [phone] Blood erythrocytes count (nu mber/volume)on 06-12-2022 RBC (Bld) [#/Vol] 3.84 10*6/uL 4.2-5.4 [facility] Work [facility]: Blood hemoglobin measurement (mass/volume)on 06-12-2022 Hemoglobin (Bld) [Mass/Vol] 12.5 g/dL 12.0-15.0 [facility] Work Phone: Blood lymphocytes/100 leukoc yteson 06-12-2022 Lymphocytes/100 WBC (Bld) 40.3 % 19-41 [facility] Work Phone: Blood monocytes/100 leukocyt eson 06-12-2022 Monocytes/100 WBC (Bld) 10.5 % 0-10 [facility] Work Phone: Blood platelet mean volumeon 06-12-2022 Platelet mean volume (Bld) [Entitic vol] 12.2 fL 6.2-12.0 [facility] Work Phone: Determination of erythrocyte mean corpuscular volume (MCV)on 06-12-2022 MCV (RBC) [Entitic vol] 96.9 fL 81-99 [facility] Work Phone: Hematocrit Auto (Bld) [Volum e fraction]on 06-12-2022 Hematocrit (Bld) [Volume fraction] 37.2 % 37-47 [facility] Work Phone: Laboratory - Chemistry and C hemistry - challengeon 06-12-2022 ALP [Catalytic activity/Vol] 81 U/L 45-117 [facility] Work Phone: ALT [Catalytic activity/Vol] 18 U/L 13-56 [facility] Work Phone: CO2 [Moles/Vol] 28.0 mmol/L 21.0-32.0 [facility] Work Phone: Globulin (S) [Mass/Vol] 3.6 g/dL 2.2-4.2 [facility] Work Phone: Urea nitrogen/Creatinine [Mass ratio] 32.4 mg/mg 10-20 [facility] Work Phone: Laboratory - Hematology and Cell countson 06-12-2022 Erythrocyte distribution width (RBC) [Entitic vol] 45.7 fL 35.1-43.9 [facility] Work Phone: Erythrocyte distribution width (RBC) [Ratio] 12.8 % 11.6-14.6 [facility] Work Phone: Immature granulocytes/100 WBC (Bld) 0.300 % 0.0-0.9 [facility] Work Phone: Comment on above: IG% - Immature Granu locytes (promyelocytes, myelocytes and metamyelocytes) > 1% indicates that a LEFT SHIFT is Present. MCH (RBC) [Entitic mass] 32.6 pg 27.0-32.0 [facility] Work Phone: Nucleated RBC/100 WBC (Bld) [Ratio] 0 % 0-5 [facility] Work Phone: MCHC Auto (RBC) [Mass/Vol]on 06-12-2022 MCHC (RBC) [Mass/Vol] 33.6 g/dL 32-36 [facility] Work Phone: No Panel Informationon 06-12 Estimated GFR (MDRD) Amer 103 mL/min >60 [facility] Work Phone: Comment on above: GFR Calc Estimated GFR (MDRD) Non-Af Amer 85 mL/min >60 [facility] Work Phone: Comment on above: Non- GFR Calc Valproic Acid (Depakene) Level 102 ug/mL 50-100 [facility] Work Phone: Platelets bldon 06-12-2022 Platelets (Bld) [#/Vol] 155 10*3/uL 150-450 [facility] Work Phone: Serum or plasma albumin jacob urement (mass/volume)on 06-12-2022 Albumin [Mass/Vol] 2.9 g/dL 3.2-5.0 [facility] Work Phone: Serum or plasma albumin/glob ulin mass ratioon 06-12-2022 Albumin/Globulin [Mass ratio] 0.8 {ratio} 0.9-2.4 [facility] Work Phone: Serum or plasma calcium jacob urement (mass/volume)on 06-12-2022 Calcium [Mass/Vol] 8.9 mg/dL 8.5-10.1 [facility] Work Phone: Serum or plasma creatinine m easurement (mass/volume)on 06-12-2022 Creatinine [Mass/Vol] 0.71 mg/dL 0.55-1.02 [facility] Work Phone: Comment on above: The validity of the calculated GFR & GFRAA in patients over 70 years has not been determined. Clinical correlation is essential. Serum or plasma phenytoin me asurement (mass/volume)on 06-12-2022 Phenytoin [Mass/Vol] 13.3 mL 10.0-20.0 [facility] Work Phone: Serum or plasma urea nitroge n measurement (mass/volume)on 06-12-2022 Urea nitrogen [Mass/Vol] 23 mg/dL 7-18 [facility] Work Phone: Thin prep Papanicolaou smear with manual screeningon 06-12-2022 Thin prep Papanicolaou smear with manual screening 17 U/L 15-37 [facility] Work Phone: Thin prep Papanicolaou smear with manual screening 5 5-15 [facility] Work Phone: Absolute lymphocyte counton 03-20-2022 Lymphocytes Auto (Unsp spec) [#/Vol] 2.29 10*3/uL 0.83-4.51 [facility] Work Phone: Basophil percentageon 2021 Basophils/100 WBC (Bld) 0.9 % 0-1 [facility] Work Phone: Bilirubin [Mass/Vol] 0.30 mg/dL 0.20-1.00 [facility] Work Phone: Comment on above: For patients on eltr ombopag therapy, use of Dimension [place] TBIL is not recommended. Chloride [Moles/Vol] 106 mmol/L 98-107 [facility] Work Phone: Eosinophils/100 WBC (Bld) 1.5 % 0-5 [facility] Work Phone: Glucose [Mass/Vol] 80 mg/dL 74-106 [facility] Work Phone: Neutrophils (Bld) [#/Vol] 3.4 10*3/uL 2.0-7.7 [facility] Work Phone: Neutrophils/100 WBC (Bld) 51.9 % 47-70 [facility] Work Phone: Potassium [Moles/Vol] 4.2 mmol/L 3.5-5.1 [facility] Work Phone: Protein [Mass/Vol] 6.4 g/dL 6.4-8.2 [facility] Work Phone: Sodium [Moles/Vol] 140 mmol/L 136-145 [facility] Work Phone: WBC (Bld) [#/Vol] 6.5 10*3/uL 4.4-11.0 [facility] Work Phone: Blood erythrocytes count (nu mber/volume)on 03-20-2022 RBC (Bld) [#/Vol] 3.89 10*6/uL 4.2-5.4 [facility] Work Phone: Blood hemoglobin measurement (mass/volume)on 03-20-2022 Hemoglobin (Bld) [Mass/Vol] 12.5 g/dL 12.0-15.0 [facility] Work Phone: Blood lymphocytes/100 leukoc yteson 03-20-2022 Lymphocytes/100 WBC (Bld) 35.1 % 19-41 [facility] Work Phone: Blood monocytes/100 leukocyt eson 03-20-2022 Monocytes/100 WBC (Bld) 10.1 % 0-10 [facility] Work Phone: Blood platelet mean volumeon 03-20-2022 Platelet mean volume (Bld) [Entitic vol] 11.9 fL 6.2-12.0 [facility] Work Phone: Determination of erythrocyte mean corpuscular volume (MCV)on 03-20-2022 MCV (RBC) [Entitic vol] 97.4 fL 81-99 [facility] Work Phone: Hematocrit Auto (Bld) [Volum e fraction]on 03-20-2022 Hematocrit (Bld) [Volume fraction] 37.9 % 37-47 [facility] Work Phone: Laboratory - Chemistry and C hemistry - challengeon 03-20-2022 ALP [Catalytic activity/Vol] 79 U/L 45-117 [facility] Work Phone: ALT [Catalytic activity/Vol] 16 U/L 13-56 [facility] Work Phone: CO2 [Moles/Vol] 27.0 mmol/L 21.0-32.0 [facility] Work Phone: Globulin (S) [Mass/Vol] 3.4 g/dL 2.2-4.2 [facility] Work Phone: Urea nitrogen/Creatinine [Mass ratio] 25.4 mg/mg 10-20 [facility] Work Phone: Laboratory - Hematology and Cell countson 03-20-2022 Erythrocyte distribution width (RBC) [Entitic vol] 45.1 fL 35.1-43.9 [facility] Work Phone: Erythrocyte distribution width (RBC) [Ratio] 12.6 % 11.6-14.6 [facility] Work Phone: Immature granulocytes/100 WBC (Bld) 0.500 % 0.0-0.9 [facility] Work Phone: Comment on above: IG% - Immature Granu locytes (promyelocytes, myelocytes and metamyelocytes) > 1% indicates that a LEFT SHIFT is Present. MCH (RBC) [Entitic mass] 32.1 pg 27.0-32.0 [facility] Work Phone: Nucleated RBC/100 WBC (Bld) [Ratio] 0 % 0-5 [facility] Work Phone: MCHC Auto (RBC) [Mass/Vol]on 03-20-2022 MCHC (RBC) [Mass/Vol] 33.0 g/dL 32-36 [facility] Work Phone: No Panel Informationon 03-20 Estimated GFR (MDRD) Amer 111 mL/min >60 [facility] Work Phone: Comment on above: GFR Calc Estimated GFR (MDRD) Non-Af Amer 91 mL/min >60 [facility] Work Phone: Comment on above: Non- GFR Calc Valproic Acid (Depakene) Level 134 ug/mL 50-100 [facility] Work Phone: Platelets bldon 03-20-2022 Platelets (Bld) [#/Vol] 173 10*3/uL 150-450 [facility] Work Phone: Serum or plasma albumin jacob urement (mass/volume)on 03-20-2022 Albumin [Mass/Vol] 3.0 g/dL 3.2-5.0 [facility] Work Phone: Serum or plasma albumin/glob ulin mass ratioon 03-20-2022 Albumin/Globulin [Mass ratio] 0.9 {ratio} 0.9-2.4 [facility] Work Phone: Serum or plasma calcium jacob urement (mass/volume)on 03-20-2022 Calcium [Mass/Vol] 9.1 mg/dL 8.5-10.1 [facility] Work Phone: Serum or plasma creatinine m easurement (mass/volume)on 03-20-2022 Creatinine [Mass/Vol] 0.67 mg/dL 0.55-1.02 [facility] Work Phone: Comment on above: The validity of the calculated GFR & GFRAA in patients over 70 years has not been determined. Clinical correlation is essential. Serum or plasma phenytoin me asurement (mass/volume)on 03-20-2022 Phenytoin [Mass/Vol] 12.7 mL 10.0-20.0 [facility] Work Phone: Serum or plasma urea nitroge n measurement (mass/volume)on 03-20-2022 Urea nitrogen [Mass/Vol] 17 mg/dL 7-18 [facility] Work Phone: Thin prep Papanicolaou smear with manual screeningon 03-20-2022 Thin prep Papanicolaou smear with manual screening 20 U/L 15-37 [facility] Work Phone: Thin prep Papanicolaou smear with manual screening 7 5-15 [facility] Work Phone: Absolute lymphocyte counton 12-26-2021 Lymphocytes Auto (Unsp spec) [#/Vol] 2.25 10*3/uL 0.83-4.51 [facility] Work Phone: Basophil percentageon 2021 Basophils/100 WBC (Bld) 0.6 % 0-1 [facility] Work Phone: Bilirubin [Mass/Vol] 0.40 mg/dL 0.20-1.00 [facility] Work Phone: Comment on above: For patients on eltr ombopag therapy, use of Dimension [place] TBIL is not recommended. Chloride [Moles/Vol] 107 mmol/L 98-107 [facility]: Eosinophils/100 WBC (Bld) 1.3 % 0-5 [facility] Work Phone: Glucose [Mass/Vol] 79 mg/dL 74-106 [facility] Work Phone: Neutrophils (Bld) [#/Vol] 3.2 10*3/uL 2.0-7.7 [facility] Work Phone: Neutrophils/100 WBC (Bld) 50.0 % 47-70 [facility] Work Phone: Potassium [Moles/Vol] 4.3 mmol/L 3.5-5.1 [facility] Work [facility]: Protein [Mass/Vol] 6.1 g/dL 6.4-8.2 [facility] Work Phone: Sodium [Moles/Vol] 140 mmol/L 136-145 [facility] Work Phone: WBC (Bld) [#/Vol] 6.4 10*3/uL 4.4-11.0 [facility] Work Phone: Blood erythrocytes count (nu mber/volume)on 12-26-2021 RBC (Bld) [#/Vol] 3.63 10*6/uL 4.2-5.4 [facility] Work [facility]: Blood hemoglobin measurement (mass/volume)on 12-26-2021 Hemoglobin (Bld) [Mass/Vol] 12.3 g/dL 12.0-15.0 [facility] Work Phone: Blood lymphocytes/100 leukoc yteson 12-26-2021 Lymphocytes/100 WBC (Bld) 35.4 % 19-41 [facility] Work Phone: Blood monocytes/100 leukocyt eson 12-26-2021 Monocytes/100 WBC (Bld) 12.4 % 0-10 [facility] Work Phone: Blood platelet mean volumeon 12-26-2021 Platelet mean volume (Bld) [Entitic vol] 11.6 fL 6.2-12.0 [facility] Work Phone: Determination of erythrocyte mean corpuscular volume (MCV)on 12-26-2021 MCV (RBC) [Entitic vol] 98.1 fL 81-99 [facility] Work Phone: Hematocrit Auto (Bld) [Volum e fraction]on 12-26-2021 Hematocrit (Bld) [Volume fraction] 35.6 % 37-47 [facility] Work Phone: Laboratory - Chemistry and C hemistry - challengeon 12-26-2021 ALP [Catalytic activity/Vol] 75 U/L 45-117 [facility] Work Phone: ALT [Catalytic activity/Vol] 12 U/L 13-56 [facility] Work Phone: CO2 [Moles/Vol] 28.0 mmol/L 21.0-32.0 [facility] Work Phone: Globulin (S) [Mass/Vol] 3.1 g/dL 2.2-4.2 [facility] Work Phone: Urea nitrogen/Creatinine [Mass ratio] 26.0 mg/mg 10-20 [facility] Work Phone: Laboratory - Hematology and Cell countson 12-26-2021 Erythrocyte distribution width (RBC) [Entitic vol] 44.0 fL 35.1-43.9 [facility] Work Phone: Erythrocyte distribution width (RBC) [Ratio] 12.0 % 11.6-14.6 [facility] Work Phone: Immature granulocytes/100 WBC (Bld) 0.300 % 0.0-0.9 [facility] Work Phone: Comment on above: IG% - Immature Granu locytes (promyelocytes, myelocytes and metamyelocytes) > 1% indicates that a LEFT SHIFT is Present. MCH (RBC) [Entitic mass] 33.9 pg 27.0-32.0 [facility] Work Phone: Nucleated RBC/100 WBC (Bld) [Ratio] 0 % 0-5 [facility] Work Phone: MCHC Auto (RBC) [Mass/Vol]on 12-26-2021 MCHC (RBC) [Mass/Vol] 34.6 g/dL 32-36 [facility] Work Phone: No Panel Informationon 12-26 Estimated GFR (MDRD) Amer 107 mL/min >60 [facility] Work Phone: Comment on above: GFR Calc Estimated GFR (MDRD) Non-Af Amer 88 mL/min >60 [facility] Work Phone: Comment on above: Non- GFR Calc Valproic Acid (Depakene) Level 101 ug/mL 50-100 [facility] Work Phone: Platelets bldon 12-26-2021 Platelets (Bld) [#/Vol] 170 10*3/uL 150-450 [facility] Work Phone: Serum or plasma albumin jacob urement (mass/volume)on 12-26-2021 Albumin [Mass/Vol] 3.0 g/dL 3.2-5.0 [facility] Work Phone: Serum or plasma albumin/glob ulin mass ratioon 12-26-2021 Albumin/Globulin [Mass ratio] 1.0 {ratio} 0.9-2.4 [facility] Work Phone: Serum or plasma calcium jacob urement (mass/volume)on 12-26-2021 Calcium [Mass/Vol] 9.0 mg/dL 8.5-10.1 [facility] Work Phone: Serum or plasma creatinine m easurement (mass/volume)on 12-26-2021 Creatinine [Mass/Vol] 0.69 mg/dL 0.55-1.02 [facility] Work Phone: Comment on above: The validity of the calculated GFR & GFRAA in patients over 70 years has not been determined. Clinical correlation is essential. Serum or plasma phenytoin me asurement (mass/volume)on 12-26-2021 Phenytoin [Mass/Vol] 10.5 mL 10.0-20.0 [facility] Work Phone: Serum or plasma urea nitroge n measurement (mass/volume)on 12-26-2021 Urea nitrogen [Mass/Vol] 18 mg/dL 7-18 [facility] Work Phone: Thin prep Papanicolaou smear with manual screeningon 12-26-2021 Thin prep Papanicolaou smear with manual screening 19 U/L 15-37 [facility] Work Phone: Thin prep Papanicolaou smear with manual screening 5 5-15 [facility] Work Phone: Absolute lymphocyte counton 12-21-2021 Lymphocytes Auto (Unsp spec) [#/Vol] 2.13 10*3/uL 0.83-4.51 [facility] Work Phone: Basophil percentageon 2021 Basophils/100 WBC (Bld) 0.7 % 0-1 [facility] Work Phone: Bilirubin [Mass/Vol] 0.40 mg/dL 0.20-1.00 [facility] Work Phone: Comment on above: For patients on eltr ombopag therapy, use of Dimension [place] TBIL is not recommended. Chloride [Moles/Vol] 106 mmol/L 98-107 [facility] Work Phone: [phone] Eosinophils/100 WBC (Bld) 1.1 % 0-5 [facility] Work Phone: Glucose [Mass/Vol] 73 mg/dL 74-106 [facility] Work Phone: Neutrophils (Bld) [#/Vol] 2.7 10*3/uL 2.0-7.7 [facility] Work Phone: Neutrophils/100 WBC (Bld) 48.2 % 47-70 [facility] Work Phone: Potassium [Moles/Vol] 4.2 mmol/L 3.5-5.1 [place] [facility] Work Phone: Protein [Mass/Vol] 6.0 g/dL 6.4-8.2 [facility] Work Phone: Sodium [Moles/Vol] 140 mmol/L 136-145 [facility] Work Phone: WBC (Bld) [#/Vol] 5.6 10*3/uL 4.4-11.0 [facility] Work Phone: Blood erythrocytes count (nu mber/volume)on 12-21-2021 RBC (Bld) [#/Vol] 3.59 10*6/uL 4.2-5.4 [facility] Work Phone: Blood hemoglobin measurement (mass/volume)on 12-21-2021 Hemoglobin (Bld) [Mass/Vol] 11.7 g/dL 12.0-15.0 [facility] Work Phone: Blood lymphocytes/100 leukoc yteson 12-21-2021 Lymphocytes/100 WBC (Bld) 37.9 % 19-41 [facility] Work Phone: Blood monocytes/100 leukocyt eson 12-21-2021 Monocytes/100 WBC (Bld) 11.7 % 0-10 [facility] Work Phone: Blood platelet mean volumeon 12-21-2021 Platelet mean volume (Bld) [Entitic vol] 11.5 fL 6.2-12.0 [facility] Work Phone: Determination of erythrocyte mean corpuscular volume (MCV)on 12-21-2021 MCV (RBC) [Entitic vol] 97.5 fL 81-99 [facility] Work Phone: Hematocrit Auto (Bld) [Volum e fraction]on 12-21-2021 Hematocrit (Bld) [Volume fraction] 35.0 % 37-47 [facility] Work Phone: Laboratory - Chemistry and C hemistry - challengeon 12-21-2021 ALP [Catalytic activity/Vol] 65 U/L 45-117 [facility] Work Phone: ALT [Catalytic activity/Vol] 13 U/L 13-56 [facility] Work Phone: CO2 [Moles/Vol] 28.0 mmol/L 21.0-32.0 [facility] Work Phone: Globulin (S) [Mass/Vol] 3.2 g/dL 2.2-4.2 [facility] Work Phone: Urea nitrogen/Creatinine [Mass ratio] 17.9 mg/mg 10-20 [facility] Work Phone: Laboratory - Hematology and Cell countson 12-21-2021 Erythrocyte distribution width (RBC) [Entitic vol] 43.6 fL 35.1-43.9 [facility] Work Phone: Erythrocyte distribution width (RBC) [Ratio] 12.0 % 11.6-14.6 [facility] Work Phone: Immature granulocytes/100 WBC (Bld) 0.400 % 0.0-0.9 [facility] Work Phone: Comment on above: IG% - Immature Granu locytes (promyelocytes, myelocytes and metamyelocytes) > 1% indicates that a LEFT SHIFT is Present. MCH (RBC) [Entitic mass] 32.6 pg 27.0-32.0 [facility] Work Phone: Nucleated RBC/100 WBC (Bld) [Ratio] 0 % 0-5 [facility] Work Phone: MCHC Auto (RBC) [Mass/Vol]on 12-21-2021 MCHC (RBC) [Mass/Vol] 33.4 g/dL 32-36 [facility] Work [facility]: No Panel Informationon 12-21 Estimated GFR (MDRD) Amer 111 mL/min >60 [facility] Work Phone: Comment on above: GFR Calc Estimated GFR (MDRD) Non-Af Amer 91 mL/min >60 [facility] Work Phone: Comment on above: Non- GFR Calc Miscellaneous Test See comment [facility] Work Phone: Comment on above: TEST RESULT UNITS RE F INTERVALEthosuximide(Zarontin),Serum 53 ug/mL 40-100 Detection Limit = 10 TESTING PERFORMED AT [facility]. ORIGINAL REPORT ON FILE IN LAB CONTAINS ADDITIONAL TEST SITE INFORMATION. Platelets bldon 12-21-2021 Platelets (Bld) [#/Vol] 169 10*3/uL 150-450 [facility] Work Phone: Serum or plasma albumin jacob urement (mass/volume)on 12-21-2021 Albumin [Mass/Vol] 2.8 g/dL 3.2-5.0 [facility] Work Phone: Serum or plasma albumin/glob ulin mass ratioon 12-21-2021 Albumin/Globulin [Mass ratio] 0.9 {ratio} 0.9-2.4 [facility] Work Phone: Serum or plasma calcium jacob urement (mass/volume)on 12-21-2021 Calcium [Mass/Vol] 8.9 mg/dL 8.5-10.1 [facility] Work Phone: Serum or plasma creatinine m easurement (mass/volume)on 12-21-2021 Creatinine [Mass/Vol] 0.67 mg/dL 0.55-1.02 [facility] Work Phone: Comment on above: The validity of the calculated GFR & GFRAA in patients over 70 years has not been determined. Clinical correlation is essential. Serum or plasma phenytoin me asurement (mass/volume)on 12-21-2021 Phenytoin [Mass/Vol] 10.7 mL 10.0-20.0 [facility] Work Phone: Serum or plasma urea nitroge n measurement (mass/volume)on 12-21-2021 Urea nitrogen [Mass/Vol] 12 mg/dL 7-18 [facility] Work Phone: Thin prep Papanicolaou smear with manual screeningon 12-21-2021 Thin prep Papanicolaou smear with manual screening 17 U/L 15-37 [facility] Work Phone: Thin prep Papanicolaou smear with manual screening 6 5-15 [facility] Work Phone: No Panel Informationon 11-23 Thyroid Stimulating Hormone (TSH) 2.89 uIU/mL 0.358-3.74 [facility] Work Phone: No Panel Informationon 10-26 Valproic Acid (Depakene) Level 76 ug/mL 50-100 [facility] Work Phone: Serum or plasma phenytoin me asurement (mass/volume)on 10-26-2021 Phenytoin [Mass/Vol] 14.0 mL 10.0-20.0 [facility] Work Phone: Absolute lymphocyte counton 10-03-2021 Lymphocytes Auto (Unsp spec) [#/Vol] 3.18 10*3/uL 0.83-4.51 [facility] Work Phone: Basophil percentageon 2020 Bilirubin [Mass/Vol] 0.40 mg/dL 0.20-1.00 [facility] Work Phone: Comment on above: For patients on eltr ombopag therapy, use of Dimension [place] TBIL is not recommended. Chloride [Moles/Vol] 106 mmol/L 98-107 [facility] Work Phone: Eosinophils/100 WBC (Bld) 1.7 % 0-5 [facility] Work Phone: Glucose [Mass/Vol] 73 mg/dL 74-106 [facility] Work Phone: [phone] Comment on above: Please note revised GLUCOSE reference range effective 2017. Neutrophils (Bld) [#/Vol] 2.4 10*3/uL 2.0-7.7 [facility] Work Phone: Potassium [Moles/Vol] 4.1 mmol/L 3.5-5.1 [facility] Work Phone: Protein [Mass/Vol] 6.4 g/dL 6.4-8.2 [facility] Work Phone: Sodium [Moles/Vol] 140 mmol/L 136-145 [facility] Work Phone: WBC (Bld) [#/Vol] 6.4 10*3/uL 4.4-11.0 [facility] Work Phone: Blood erythrocytes count (nu mber/volume)on 10-03-2021 RBC (Bld) [#/Vol] 3.71 10*6/uL 4.2-5.4 [facility] Work [facility]: Blood hemoglobin measurement (mass/volume)on 10-03-2021 Hemoglobin (Bld) [Mass/Vol] 12.5 g/dL 12.0-15.0 [facility] Work Phone: Blood lymphocytes/100 leukoc yteson 10-03-2021 Lymphocytes/100 WBC (Bld) 49.5 % 19-41 [facility] Work Phone: Blood monocytes/100 leukocyt eson 10-03-2021 Monocytes/100 WBC (Bld) 11.0 % 0-10 [facility] Work Phone: Blood platelet mean volumeon 10-03-2021 Platelet mean volume (Bld) [Entitic vol] 12.0 fL 6.2-12.0 [facility] Work Phone: Determination of erythrocyte mean corpuscular volume (MCV)on 10-03-2021 MCV (RBC) [Entitic vol] 97.0 fL 81-99 [facility] Work Phone: Hematocrit Auto (Bld) [Volum e fraction]on 10-03-2021 Hematocrit (Bld) [Volume fraction] 36.0 % 37-47 [facility] Work Phone: Laboratory - Chemistry and C hemistry - challengeon 10-03-2021 ALP [Catalytic activity/Vol] 80 U/L 45-117 [facility] Work Phone: ALT [Catalytic activity/Vol] 21 U/L 13-56 [facility] Work Phone: CO2 [Moles/Vol] 28.0 mmol/L 21.0-32.0 [facility] Work Phone: Globulin (S) [Mass/Vol] 3.4 g/dL 2.2-4.2 [facility] Work Phone: Urea nitrogen/Creatinine [Mass ratio] 19.7 mg/mg 10- [facility] Work Phone: Laboratory - Hematology and Cell countson 10-03-2021 Basophils/100 WBC (Unsp spec) 0.6 % 0-1 [facility] Work Phone: Erythrocyte distribution width (RBC) [Entitic vol] 46.0 fL 35.1-43.9 [facility] Work Phone: Erythrocyte distribution width (RBC) [Ratio] 12.7 % 11.6-14.6 [facility] Work Phone: Immature granulocytes/100 WBC (Bld) 0.300 % 0.0-0.9 [facility] Work Phone: Comment on above: IG% - Immature Granu locytes (promyelocytes, myelocytes and metamyelocytes) > 1% indicates that a LEFT SHIFT is Present. MCH (RBC) [Entitic mass] 33.7 pg 27.0-32.0 [facility] Work Phone: Neutrophils/100 WBC (Bld) 36.9 % 47-70 [facility] Work Phone: Nucleated RBC/100 WBC (Bld) [Ratio] 0 % 0-5 [facility] Work Phone: MCHC Auto (RBC) [Mass/Vol]on 10-03-2021 MCHC (RBC) [Mass/Vol] 34.7 g/dL 32-36 [facility] Work Phone: No Panel Informationon 10-03 Estimated GFR (MDRD) Amer 95 mL/min >60 [facility] Work Phone: Comment on above: GFR Calc Estimated GFR (MDRD) Non-Af Amer 79 mL/min >60 [facility] Work Phone: Comment on above: Non- GFR Calc Valproic Acid (Depakene) Level 90 ug/mL 50-100 [facility] Work Phone: Platelets bldon 10-03-2021 Platelets (Bld) [#/Vol] 160 10*3/uL 150-450 [facility] Work Phone: Serum or plasma albumin jacob urement (mass/volume)on 10-03-2021 Albumin [Mass/Vol] 3.0 g/dL 3.2-5.0 [facility] Work Phone: Serum or plasma albumin/glob ulin mass ratioon 10-03-2021 Albumin/Globulin [Mass ratio] 0.9 {ratio} 0.9-2.4 [facility] Work Phone: Serum or plasma calcium jacob urement (mass/volume)on 10-03-2021 Calcium [Mass/Vol] 8.7 mg/dL 8.5-10.1 [facility] Work Phone: Serum or plasma creatinine m easurement (mass/volume)on 10-03-2021 Creatinine [Mass/Vol] 0.76 mg/dL 0.55-1.02 [facility] Work Phone: Comment on above: The validity of the calculated GFR & GFRAA in patients over 70 years has not been determined. Clinical correlation is essential. Serum or plasma phenytoin me asurement (mass/volume)on 10-03-2021 Phenytoin [Mass/Vol] 14.5 mL 10.0-20.0 [facility] Work Phone: Serum or plasma urea nitroge n measurement (mass/volume)on 10-03-2021 Urea nitrogen [Mass/Vol] 15 mg/dL 7-18 [facility] Work Phone: Thin prep Papanicolaou smear with manual screeningon 10-03-2021 Thin prep Papanicolaou smear with manual screening 19 U/L 15-37 [facility] Work Phone: Thin prep Papanicolaou smear with manual screening 6 5-15 [facility] Work Phone: RF Swallowing Function w/ Vi deoon 01-22-2019 RF Swallowing Function w/ Video Patient Name: KATHERYN CIHNO Fluoroscopy Exam Date/Time 01/22/2019 13:50:00 EDT Exam RF Swallowing Function w/ Video Ordering Physician DO MENDOZA EUGENE F. Accession Number [id number] [facility] Codes 99528 () Reason For Exam Dysphagia Report CLINICAL [...] HARLAN Transcribed Date and Time: 01/22/2019 4:28 [facility] CRITICAL CARE NURSE SPECIALIST Modified Barium Swallow Studyon 01-22-2019 CRITICAL CARE NURSE SPECIALIST Modified Barium Swallow Study Patient Name: KATHERYN CHINO Fluoroscopy Exam Date/Time 01/22/2019 13:50:00 EDT Exam CRITICAL CARE NURSE SPECIALIST Modified Barium Swallow Study Ordering Physician DO MENDOZA EUGENE F. Accession Number [id number] Reason For Exam Dysphagia, oropharyngeal phase Report [...] swallowing function through oropharyngeal strengthening exercises. G-Code: CI Radiologist: Dr. Antonio Carlos MD Radiologist Physician Lot Porter: Not applicable Report Dictated on Final Dictating Physician: OLIVIA DUNCAN CCC/JACKI MACKENZIE Signed Date and Time: 01/22/2019 4:43 pm Signed by: OLIVIA DUNCAN CCC/JACKI MACKENZIE Transcribed Date and Time: 01/23/2019 6:58 Normal [facility] CRITICAL CARE NURSE SPECIALIST Modified Barium Swallow Study Patient Name: KATHERYN CHINO Fluoroscopy Exam Date/Time 01/22/2019 13:50:00 EDT Exam CRITICAL CARE NURSE SPECIALIST Modified Barium Swallow Study Ordering Physician DO MENDOZA EUGENE F. Accession Number [id number] Reason For Exam Dysphagia, oropharyngeal phase Addendum This exam in the patient's exam history was incorrectly coded to this patient. The billing and report corrections were made on accession number [id number] Final Addendum Signed Date and Time: 01/23/2019 9:55 am Signed by: PLASTERER HELPER, SYSTEM Transcribed Date and Time: 01/22/2019 4:46 [...] Report revised on 01/23/2019 09:55:55 EDT by PLASTERER HELPER, SYSTEM Final Dictating Physician: MD CARLOS HARLAN Signed Date and Time: 01/22/2019 3:28 pm Signed by: MD CARLOS HARLAN Transcribed Date and Time: 01/22/2019 3:29 Normal [facility] MRI BRAIN W/O CONTRAST [id number] on 08-23-2018 MRI BRAIN W/O CONTRAST [id number] Performed at [facility] APPROVED BY: Hayes España MD EXAMINATION: MRI BRAIN W/O CONTRAST [id number] CLINICAL HISTORY: Epilepsy. Ataxia. History of seizure [...] throughout the supratentorial white matter. Normal [facility] Teston 08-12-2018 [facility] Test Result SEE BELOW Normal [facility] Comment on above: Result Comment: [...] Laboratory: Performed By: #### G OX #### [place] [address] Phenytoin, Freeon 08-09-2018 Phenytoin, Free SEE BELOW Normal [facility] Comment on above: Result Comment: Phen ytoin, Free 2.1 H 1.0-2.0 ug/mL Reference ranges and high/low indicator flags are provided as general guidelines only. The treating physician must determine appropriate target levels/dosing based on the specific clinical situation. This test was developed and its performance characteristics determined by [facility]'s Juanpablo Castañeda [facility] Pathology and Laboratory Medicine [place] ([facility] It has not been cleared or approved by the FDA. [facility] is regulated under CLIA as qualified to perform high-complexity testing. This test is used for clinical purposes. It should not be regarded as investigational or for research. Performing Laboratory: [facility] [address] [place] [address] Performed By: #### P TNFX #### [place] [address] Misc. Teston 08-08-2018 [facility] Order Code ETHOS Normal [facility] Comment on above: Performed By: #### G OX #### [place] [address] Test Name ETHOSUXIMIDE Normal [facility] Comment on above: Performed By: #### G OX #### [place] [address] Comprehensive Panelon 2017 Bilirubin [Mass/Vol] 0.3 mg/dL Normal 0.2-1.0 [facility] Comment on above: Performed By: #### P 14 #### [place] [address] ALP [Catalytic activity/Vol] 103 U/L Normal 46-116 [facility] Comment on above: Performed By: #### P 14 #### [place] [address] AST [Catalytic activity/Vol] 14 U/L Normal 9-37 [facility] Comment on above: Performed By: #### P 14 #### [place] [address] Creatinine [Mass/Vol] 0.74 mg/dL Normal 0.51-0.95 [facility] Comment on above: Performed By: #### P 14 #### [place] [address] Protein [Mass/Vol] 7.1 g/dL Normal 6.4-8.2 [facility] Comment on above: Performed By: #### P 14 #### [facility] [address] [place], [place] [address] ALT [Catalytic activity/Vol] 18 U/L Normal 12-78 [facility] Comment on above: Performed By: #### P 14 #### [facility] [address] [place], [place] [address] Albumin [Mass/Vol] 3.7 g/dL Normal 3.4-5.0 [facility] Comment on above: Performed By: #### P 14 #### [facility] [address] [place], [place] [address] Anion gap [Moles/Vol] 12 mmol/L Normal 8-16 [facility] Comment on above: Performed By: #### P 14 #### [facility] [address] [place], [place] [address] CO2 [Moles/Vol] 28 mmol/L Normal 21-32 [facility] Comment on above: Performed By: #### P 14 #### [facility] [address] [place], [place] [address] Urea nitrogen [Mass/Vol] 11 mg/dL Normal 7-18 [facility] Comment on above: Performed By: #### P 14 #### [facility] [address] [place], [place] [address] Calcium [Mass/Vol] 9.1 mg/dL Normal 8.5-10.1 [facility] Comment on above: Performed By: #### P 14 #### [facility] [address] [place], [place] [address] Glucose [Mass/Vol] 71 mg/dL Normal 70-99 [facility] Comment on above: Performed By: #### P 14 #### [facility] [address] [place], [place] [address] Chloride [Moles/Vol] 105 mmol/L Normal 98-107 [facility] Comment on above: Performed By: #### P 14 #### [facility] [address] [place], [place] [address] Potassium [Moles/Vol] 4.8 mmol/L Normal 3.5-5.1 [facility] Comment on above: Performed By: #### P 14 #### [facility] [address] [place] [address] Sodium [Moles/Vol] 140 mmol/L Normal 136-145 [facility] Comment on above: Performed By: #### P 14 #### [facility] [address] [place] [address] Dilantin,Randomon 08-07-2018 INR Coag (Bld) [Relative time] 13.0 mg/L Normal 10.0-20.0 [facility] Comment on above: Performed By: #### D ILAR #### [facility] [address] [place] [address] Hemogramon 08-07-2018 Erythrocyte distribution width (RBC) [Ratio] 12.9 % Normal 11.7-14.4 [facility] Comment on above: Performed By: #### C BC1 #### [facility] [address] [place] [address] Hematocrit (Bld) [Volume fraction] 43.8 % Normal 34.1-44.9 [facility] Comment on above: Performed By: #### C BC1 #### [facility] [address] [place] [address] Hemoglobin (Bld) [Mass/Vol] 14.4 g/dL Normal 11.2-15.7 [facility] Comment on above: Performed By: #### C BC1 #### [facility] [address] [place] [address] MCH (RBC) [Entitic mass] 31.4 pg Normal 25.6-32.2 [facility] Comment on above: Performed By: #### C BC1 #### [facility] [address] [place] [address] MCHC (RBC) [Mass/Vol] 32.9 % Normal 31.6-34.8 [facility] Comment on above: Performed By: #### C BC1 #### [facility] [address] [place] [address] MCV (RBC) [Entitic vol] 95.6 fL High 79.4-94.8 [facility] Comment on above: Performed By: #### C BC1 #### [facility] [address] [place], [place] [address] Platelet mean volume (Bld) [Entitic vol] 11.7 fL Normal 9.4-12.3 [facility] Comment on above: Performed By: #### C BC1 #### [facility] [address] [place], [place] [address] Platelets (Bld) [#/Vol] 219 thou/cmm Normal 182-369 [facility] Comment on above: Performed By: #### C BC1 #### [address] [address] RBC (Bld) [#/Vol] 4.58 mil/cmm Normal 3.93-5.22 [facility] Comment on above: Performed By: #### C BC1 #### [place] [address] RDW SD 45.6 fl Normal 36.4-46.3 [facility] Comment on above: Performed By: #### C BC1 #### [address] [address] WBC (Bld) [#/Vol] 5.66 thou/cmm Normal 3.98-10.04 [facility] Comment on above: Performed By: #### C BC1 #### [place] [address] MDRD GFRon 08-07-2018 GFR/1.73 sq M predicted among non-blacks MDRD (S/P/Bld) [Vol rate/Area] mL/min/{1.73_m2} Normal >60mL/min/ 1.73m2 [facility] Comment on above: Result Comment: If t he patient is , multiply the result by 1.210. Performed By: #### G FR #### [place] [id number] Valproic Acid,Roosevelt.on 2017 Valproic Acid,Roosevelt. 73 mg/L Normal 50-100 [facility] Comment on above: Performed By: #### V ALPR #### [address] [place], [place] [address] Ammoniaon 06-06-2018 Ammonia mass conc (P) ug/dL Normal 9-30 [facility] Comment on above: Performed By: #### H EMDF, NH33, CMP3, MG3, VALP3, PTN3 #### [facility] [address] [place] [address] CT Head or Brain w/o Contras ton 06-06-2018 CT Head or Brain w/o Contrast Patient Name: KATHERYN CHINO CT Exam Date/Time 06/06/2018 17:12:[address] Head or Brain w/o Contrast Ordering Physician DWAYNE ROMAN DANIEL M Accession Number [id number] CPT4 Codes 15849 () Reason For Exam seizure, headache Report [...] Transcribed Date and Time: 06/06/2018 5:20 Normal [facility] Comp Metabolic Panelon 06-06 ALT enzyme act/vol 24 U/L Normal 13-69 [facility] Comment on above: Performed By: #### H EMDF, NH33, CMP3, MG3, VALP3, PTN3 #### [facility] [address] [place] [address] Calcium mass conc 10.1 mg/dL Normal 8.4-10.4 [facility] Comment on above: Performed By: #### H EMDF, NH33, CMP3, MG3, VALP3, PTN3 #### [facility] [address] [place] [address] Glucose mass conc 86 mg/dL Normal 70-100 [facility] Comment on above: Performed By: #### H EMDF, NH33, CMP3, MG3, VALP3, PTN3 #### [facility] [address] [place] [address] ALP enzyme act/vol 90 U/L Normal 38-126 [facility] Comment on above: Performed By: #### H EMDF, NH33, CMP3, MG3, VALP3, PTN3 #### [facility] [address] [place] [address] Anion gap molar conc 7 Normal [facility] Comment on above: Performed By: #### H EMDF, NH33, CMP3, MG3, VALP3, PTN3 #### [facility] [address] [place] [address] AST enzyme act/vol 23 U/L Normal 15-46 [facility] Comment on above: Performed By: #### H EMDF, NH33, CMP3, MG3, VALP3, PTN3 #### [facility] [address] [place] [address] Bilirubin mass conc 0.5 mg/dL Normal 0.2-1.3 [facility] Comment on above: Performed By: #### H EMDF, NH33, CMP3, MG3, VALP3, PTN3 #### [facility] [address] [place] [address] CO2 molar conc 29 mmol/L Normal 22-30 [facility] Comment on above: Performed By: #### H EMDF, NH33, CMP3, MG3, VALP3, PTN3 #### [facility] [address] [place] [address] Creatinine mass conc 0.62 mg/dL Normal 0.52-1.25 [facility] Comment on above: Performed By: #### H EMDF, NH33, CMP3, MG3, VALP3, PTN3 #### [facility] [address] [place] [address] GFR/1.73 sq M predicted among blacks MDRD vol rate/area (S/P/Bld) mL/min/{1.73_m2} Normal >60 [facility] Comment on above: Performed By: #### H EMDF, NH33, CMP3, MG3, VALP3, PTN3 #### [facility] [address] [place] [address] GFR/1.73 sq M predicted among non-blacks MDRD vol rate/area (S/P/Bld) mL/min/{1.73_m2} Normal >60 [facility] Comment on above: Result Comment: Sour ce- MDRD equation with creatinine calibration to IDMS(NKDEP) eGFR not recommended for drug dose adjustment Performed By: #### H EMDF, NH33, CMP3, MG3, VALP3, PTN3 #### [facility] [address] [place] [address] Protein mass conc 7.1 g/dL Normal 6.3-8.2 [facility] Comment on above: Performed By: #### H EMDF, NH33, CMP3, MG3, VALP3, PTN3 #### [facility] [address] [place] [address] Urea nitrogen mass conc 15 mg/dL Normal 7-20 [facility] Comment on above: Performed By: #### H EMDF, NH33, CMP3, MG3, VALP3, PTN3 #### [facility] [facility] [address] [place] [address] Potassium molar conc 4.7 mmol/L Normal 3.5-5.1 [facility] Comment on above: Performed By: #### H EMDF, NH33, CMP3, MG3, VALP3, PTN3 #### [facility] [address] [place] [address] Sodium molar conc 139 mmol/L Normal 137-145 [facility] Comment on above: Performed By: #### H EMDF, NH33, CMP3, MG3, VALP3, PTN3 #### [facility] [address] [place] [address] Albumin mass conc 4.5 g/dL Normal 3.5-5.0 [facility] Comment on above: Performed By: #### H EMDF, NH33, CMP3, MG3, VALP3, PTN3 #### [facility] [address] [place] [address] Chloride molar conc 103 mmol/L Normal 98-107 [facility] Comment on above: Performed By: #### H EMDF, NH33, CMP3, MG3, VALP3, PTN3 #### [facility] [address] [place] [address] Hemogram w/ Autodiffon 06-06 Abs Baso Cnt 0.1 10*3/uL Normal 0.0-0.2 [facility] Comment on above: Performed By: #### H EMDF, NH33, CMP3, MG3, VALP3, PTN3 #### [facility] [address] [place] [address] Abs Neutrophile Cnt 4.4 10*3/uL Normal 1.8-7.0 [facility] Comment on above: Performed By: #### H EMDF, NH33, CMP3, MG3, VALP3, PTN3 #### [facility] [address] [place] [address] Basophils/100 WBC (Bld) 1.0 % Normal 0.0-2.0 [facility] Comment on above: Performed By: #### H EMDF, NH33, CMP3, MG3, VALP3, PTN3 #### [facility] [address] [place] [address] Eosinophils #/vol (Bld) 0.0 10*3/uL Normal 0.0-0.5 [facility] Comment on above: Performed By: #### H EMDF, NH33, CMP3, MG3, VALP3, PTN3 #### [facility] [address] [place] [address] Eosinophils/100 WBC (Bld) 0.4 % Low 1.0-6.0 [facility] Comment on above: Performed By: #### H EMDF, NH33, CMP3, MG3, VALP3, PTN3 #### [facility] [address] [place] [address] Erythrocyte distribution width Ratio (RBC) 12.8 % Normal 11.5-14.5 [facility] Comment on above: Performed By: #### H EMDF, NH33, CMP3, MG3, VALP3, PTN3 #### [facility] [address] [place] [address] Granulocytes/100 WBC (Bld) 61.3 % Normal 40.0-80.0 [facility] Comment on above: Performed By: #### H EMDF, NH33, CMP3, MG3, VALP3, PTN3 #### [place] [address] [place] [address] Hematocrit Volume Fraction (Bld) 40.5 % Normal 35.0-47.0 [facility] Comment on above: Performed By: #### H EMDF, NH33, CMP3, MG3, VALP3, PTN3 #### [facility] [address] [place] [address] Hemoglobin mass conc (Bld) 14.1 g/dL Normal 11.7-16.0 [facility] Comment on above: Performed By: #### H EMDF, NH33, CMP3, MG3, VALP3, PTN3 #### [facility] [address] [place] [address] Lymphocytes #/vol (Bld) 2.1 10*3/uL Normal 1.0-4.3 [facility] Comment on above: Performed By: #### H EMDF, NH33, CMP3, MG3, VALP3, PTN3 #### [facility] [address] [place] [address] Lymphocytes/100 WBC (Bld) 28.8 % Normal 20.0-40.0 [facility] Comment on above: Performed By: #### H EMDF, NH33, CMP3, MG3, VALP3, PTN3 #### [facility] [address] [place] [address] MCH Entitic mass (RBC) 32.3 pg Normal 26.0-34.0 [facility] Comment on above: Performed By: #### H EMDF, NH33, CMP3, MG3, VALP3, PTN3 #### [facility] [address] [place] [address] MCHC mass conc (RBC) 34.8 % Normal 32.0-36.0 [facility] Comment on above: Performed By: #### H EMDF, NH33, CMP3, MG3, VALP3, PTN3 #### [facility] [address] [place] [address] MCV Entitic volume (RBC) 93.0 fL Normal 79.0-98.0 [facility] Comment on above: Performed By: #### H EMDF, NH33, CMP3, MG3, VALP3, PTN3 #### [facility] [address] [place] [address] Monocytes #/vol (Bld) 0.6 10*3/uL Normal 0.0-0.8 [facility] Comment on above: Performed By: #### H EMDF, NH33, CMP3, MG3, VALP3, PTN3 #### [facility] [address] [place] [address] Monocytes/100 WBC (Bld) 8.5 % Normal 2.0-10.0 [facility] Comment on above: Performed By: #### H EMDF, NH33, CMP3, MG3, VALP3, PTN3 #### [facility] [address] [place] [address] Platelet mean volume Entitic volume (Bld) 10.1 fL Normal 7.4-10.4 [facility] Comment on above: Performed By: #### H EMDF, NH33, CMP3, MG3, VALP3, PTN3 #### [facility] [address] [place] [address] Platelets #/vol (Bld) 195 10*3/uL Normal 140-440 [facility] Comment on above: Performed By: #### H EMDF, NH33, CMP3, MG3, VALP3, PTN3 #### [facility] [address] [place] [address] RBC #/vol (Bld) 4.36 10*6/uL Normal 3.80-5.20 [facility] Comment on above: Performed By: #### H EMDF, NH33, CMP3, MG3, VALP3, PTN3 #### [facility] [address] [place] [address] WBC #/vol (Bld) 7.2 10*3/uL Normal 3.6-10.7 [facility] Comment on above: Performed By: #### H EMDF, NH33, CMP3, MG3, VALP3, PTN3 #### [facility] [address] [place] [address] Magnesiumon 06-06-2018 Magnesium mass conc 2.0 mg/dL Normal 1.6-2.3 [facility] Comment on above: Performed By: #### H EMDF, NH33, CMP3, MG3, VALP3, PTN3 #### [facility] [address] [place] [address] Phenytoin, Totalon 8 Phenytoin, Total 6.8 ug/mL Low 10.0-20.0 [facility] Comment on above: Performed By: #### H EMDF, NH33, CMP3, MG3, VALP3, PTN3 #### [facility] [address] [place] [address] Valproic Acidon 06-06-2018 Protein mass conc 38 ug/mL Low 50-120 [facility] Comment on above: Performed By: #### H EMDF, NH33, CMP3, MG3, VALP3, PTN3 #### [facility] [address] [place] [address] Vital Signs Date Time Vital Sign Value Performing Clinician Facility 02-25-2025 14:06-0400 Body mass index (BMI) [Ratio] 32.74 kg/m2 Lolita Jain PA-C Work Phone: [facility] 02-25-2025 14:06-0400 Body weight 81.19 kg Lolita Jain PA-C Work Phone: [facility] 02-25-2025 14:06-0400 Diastolic blood pressure 67 mm[Hg] Lolita Cristobal PA-C Work Phone: [facility] 02-25-2025 14:06-0400 Heart rate 71 /min Lolita Cristobal PA-C Work Phone: [facility] 02-25-2025 14:06-0400 SaO2% (BldA) [Mass fraction] 96 % Lolita Cristobal PA-C Work Phone: [facility] 02-25-2025 14:06-0400 Systolic blood pressure 142 mm[Hg] Lolita Cristobal PA-C Work Phone: [facility] 01-15-2025 08:01-0400 Diastolic blood pressure 73 mm[Hg] Jayant Jimenez MD Work Phone: [facility] 01-15-2025 08:01-0400 Heart rate 76 /min Jayant Jimenez MD Work Phone: [facility] 01-15-2025 08:01-0400 Systolic blood pressure 135 mm[Hg] Jayant Jimenez MD Work Phone: [facility] 01-15-2025 07:54-0400 Body height 157.5 cm Jayant Jimenez MD Work Phone: [facility] 01-15-2025 07:54-0400 Body mass index (BMI) [Ratio] 30.36 kg/m2 Jayant Jimenez MD Work Phone: [facility] 01-15-2025 07:54-0400 Body weight 75.3 kg Jayant Jimenez MD Work Phone: [facility] 01-15-2025 07:54-0400 Respiratory rate 18 /min Jayant Jimenez MD Work Phone: [facility] 12-08-2024 07:28-0500 Body temperature 98.01 [degF] Miriam Hennessy DO Work Phone: [facility] 12-08-2024 07:28-0500 Diastolic blood pressure 69 mm[Hg] Miriam Hennessy DO Work Phone: [facility] 12-08-2024 07:28-0500 Heart rate 70 /min Miriam Hennessy DO Work Phone: [facility] 12-08-2024 07:28-0500 Respiratory rate 18 /min Miriam Hennessy DO Work Phone: [facility] 12-08-2024 07:28-0500 SaO2% (BldA) [Mass fraction] 100 % Miriam Hennessy DO Work Phone: [facility] 12-08-2024 07:28-0500 Systolic blood pressure 136 mm[Hg] Miriam Hennessy DO Work Phone: [facility] 12-03-2024 20:24-0500 Body height 160 cm Miriam Hennessy DO Work Phone: [facility] 12-03-2024 20:24-0500 Body mass index (BMI) [Ratio] 31.87 kg/m2 Miriam Hennessy DO Work Phone: [facility] 12-03-2024 20:24-0500 Body weight 81.6 kg Miriam Hennessy DO Work Phone: [facility] 12-03-2024 16:00-0500 Diastolic blood pressure 66 mm[Hg] Todd Velasquez MD [facility] 12-03-2024 16:00-0500 Heart rate 89 /min Todd Velasquez MD [facility] 12-03-2024 16:00-0500 Inhaled oxygen flow rate 4 L/min Todd Velasquez MD [facility] 12-03-2024 16:00-0500 Respiratory rate 31 /min Todd Velasquez MD [facility] 12-03-2024 16:00-0500 SaO2% (BldA) [Mass fraction] 96 % Todd Velasquez MD [facility] 12-03-2024 16:00-0500 Systolic blood pressure 95 mm[Hg] Todd Velasquez MD [facility] 12-03-2024 13:00-0500 Body temperature 98.2 [degF] Todd Velasquez MD [facility] 12-03-2024 09:32-0500 Body height 162.56 cm Todd Velasquez MD [facility] 12-03-2024 09:32-0500 Body mass index (BMI) [Ratio] 34 kg/m2 Todd Velasquez MD [facility] 12-03-2024 09:32-0500 Body weight 89.9 kg Todd Velasquez MD [facility] 11-26-2024 10:56-0500 Body height 157.5 cm Bone Bath [facility] 09-24-2024 07:55-0500 Body height 160 cm Jayant Jimenez MD Work Phone: [facility] 09-24-2024 07:55-0500 Body mass index (BMI) [Ratio] 31.89 kg/m2 Jayant Jimenez MD Work Phone: [facility] 09-24-2024 07:55-0500 Body weight 81.65 kg Jayant Jimenez MD Work Phone: [facility] 09-24-2024 07:55-0500 Diastolic blood pressure 81 mm[Hg] Jayant Jimenez MD Work Phone: [facility] 09-24-2024 07:55-0500 Heart rate 77 /min Jayant Jimenez MD Work Phone: [facility] 09-24-2024 07:55-0500 Respiratory rate 16 /min Jayant Jimenez MD Work Phone: [facility] 09-24-2024 07:55-0500 Systolic blood pressure 132 mm[Hg] Jayant Jimenez MD Work Phone: [facility] 09-18-2023 13:27-0500 Diastolic blood pressure 72 mm[Hg] [facility] 09-18-2023 13:27-0500 Heart rate 70 /min [facility] 09-18-2023 13:27-0500 Respiratory rate 20 /min [facility] 09-18-2023 13:27-0500 SaO2% (BldA) [Mass fraction] 94 % [facility] 09-18-2023 13:27-0500 Systolic blood pressure 141 mm[Hg] [facility] 09-18-2023 11:58-0500 Body height 162.56 cm [facility] 09-18-2023 11:58-0500 Body mass index (BMI) [Ratio] 33.7 kg/m2 [facility] 09-18-2023 11:58-0500 Body temperature 98.1 [degF] [facility] 09-18-2023 11:58-0500 Body weight 89 kg [facility] Encounters Encounter Date Encounter Type Care Provider Facility Start: 08-13-2025 End: 08-13-2025 ambulatory Todd Velasquez Sr. Facility:[facility] Start: 08-09-2025 End: 08-09-2025 Emergency department patient visit Todd Velasquez Sr. Facility:[facility] Start: 06-17-2025 ambulatory Todd Boyd ty:[facility] Start: 06-01-2025 ambulatory Todd Boyd ty:[facility] Start: 05-27-2025 ambulatory Todd Boyd ty:[facility] Start: 04-16-2025 End: 04-16-2025 Telephone encounter Lolita Jain PA-C Work Phone: Rheumatology Start: 04-06-2025 ambulatory Todd Boyd ty:[facility] Start: 04-06-2025 [facility] Start: 03-10-2025 End: 03-10-[address] Todd Velasquez Sr. DO Work Phone: -[facility] Start: 03-10-2025 End: 03-10-2025 Departed Referred Todd Velasquez MD -[facility] Start: 03-10-2025 End: 03-10-2025 ambulatory Todd Velasquez Sr. Facility:[facility] Start: 03-04-2025 ambulatory Todd Boyd ty:[facility] Start: 03-04-2025 [facility] [place] Start: 02-27-2025 ambulatory Todd Boyd ty:[facility] Start: 02-27-2025 [facility] Start: 02-26-2025 End: 02-26-2025 ambulatory Guille Corona [facility] Start: 02-26-2025 End: 02-26-2025 Patient encounter procedure Guille Corona [facility] Comment on above: SPP Osteoporosis - T reatment Referral (Teriparatide); Insurance Authorization (Teriparatide PA Submission pending ) Start: 02-26-2025 End: 02-26-2025 Telephone encounter Lolita LAO-C Work Phone: Rheumatology Start: 02-25-2025 End: 02-25-2025 Patient encounter procedure Lolita Jain PA-C Work Phone: Rheumatology Comment on above: Osteoporosis without current pathological fracture, unspecified osteoporosis type (Primary Dx); Wheelchair dependent; 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); History of long-term treatment with high-risk medication Start: 02-25-2025 End: 02-25-2025 ambulatory LOLITA CRISTOBAL Facility:[facility] Start: 02-18-2025 End: 02-18-2025 ambulatory Lolita Jain PA-C Work Phone: Rheumatology Start: 02-18-2025 End: 02-18-2025 E-mail encounter from caregiver Lolita Jain PA-C Work Phone: Rheumatology Start: 02-02-2025 End: 02-02-2025 ambulatory Todd Velasquez MD [facility] Work Phone: Start: 02-02-2025 End: 02-02-2025 [facility] [place] Start: 02-02-[facility]25 [facility] Start: 02-02-2025 End: 02-02-2025 ambulatory Todd Velasquez Sr. Facility:[facility] Start: 01-28-2025 End: 01-28-2025 ambulatory Todd Velasquez MD [facility] Work Phone: Start: 01-28-2025 End: 01-28-2025 Departed Referred Todd Velasquez MD [facility] Start: 01-28-2025 Registered [facility] Start: 01-28-2025 End: 01-28-2025 ambulatory Todd Velasquez Sr. Facility:[facility] Start: 01-19-2025 End: 01-19-2025 ambulatory Todd Velasquez MD [facility] Work Phone: Start: 01-19-2025 End: 01-19-2025 [facility] Start: 01-19-2025 End: 01-19-2025 ambulatory Todd Velasquez Sr. Facility:[facility] Start: 01-16-2025 End: 01-19-2025 Telephone encounter Jayant Jimenez MD Work Phone: Neurology Comment on above: Medication Problem ( Lacosamide) Start: 01-15-2025 End: 01-15-2025 Patient encounter procedure Jayant Jimenez MD Work Phone: Neurology Epilepsy Comment on above: Intractable epilepsy without status epilepticus, unspecified epilepsy type (HCC); Osteoporosis without current pathological fracture, unspecified osteoporosis type Start: 01-15-2025 End: 01-15-2025 ambulatory ORVILLE LORENZANAGUYJose Facility:[facility] Start: 12-26-2024 End: 12-26-2024 ambulatory Todd Velasquez MD [facility] Work Phone: Start: 12-26-2024 End: 12-26-2024 Departed Referred Todd Velasquez MD -[facility] Start: 12-26-2024 Registered Referred Todd Velasquez MD -[facility] Start: 12-26-2024 End: 12-26-2024 ambulatory Todd Velasquez Sr. Facility:[facility] Start: 12-24-2024 End: 12-24-2024 Telephone encounter [...] 12-15-2024 End: 12-15-2024 ambulatory Todd Velasquez MD [facility] Work Phone: Start: 12-15-2024 End: 12-15-2024 Departed Referred Todd Velasquez MD -[facility] Start: 12-15-2024 End: 12-15-2024 ambulatory Todd Velasquez Sr. Facility:[facility] Start: 12-10-[address] [facility] Start: 12-10-2024 Registered Referred Todd Velasquez MD -[facility] Start: 12-04-2024 End: 12-04-2024 Emergency department patient visit [facility] Start: 12-03-2024 End: 12-08-2024 Evaluation and management of inpatient Miriam Hennessy DO Work Phone: [facility] Epilepsy Monitoring Unit 3N Comment on [...] pathological fracture, unspecified osteoporosis type (Primary Dx) [employer] - [employer]r Start: 11-26-2024 ambulatory ORVILLE MENDOZA Facility:[facility] Start: 11-26-2024 End: 11-26-2024 Subsequent hospital visit by physician Bone Density Bath [facility] Comment on above: 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 osteop orosis [Z13.820] Start: 11-14-2024 ambulatory Todd Boyd ty:[facility] Start: 11-14-2024 Registered Ref[facility] Start: 11-11-2024 End: 11-11-2024 Telephone encounter Jayant Jimenez MD Work Phone: Neurosurgery Comment on above: Received Outside Med ical Records (Seizure monitoring report ) Refill Request Start: 11-10-2024 End: 11-11-2024 Telephone encounter Jayant Jimenez MD Work Phone: Neurology Comment on above: Seizures Start: 11-08-2024 ambulatory Todd Boyd ty:[facility] Start: 11-08-2024 Registered Referred [facility] Start: 11-07-2024 End: 11-10-2024 Telephone encounter Jayant Jimenez MD Work Phone: Neurology Comment on above: general (seizure mon itoring report) Start: 09-29-2024 ambulatory Todd Boyd ty:[facility] Start: 09-29-2024 Registered Referred Todd Velasquez MD -[facility] Start: 09-26-2024 End: 09-26-2024 Telephone encounter Jayant Jimenez MD Work Phone: Neurology Comment on above: Outside Lab Results ([facility]) Start: 09-26-2024 ambulatory Todd Boyd ty:[facility] Start: 09-26-2024 Registered Referred Todd Velasquez MD -[facility] Start: 09-24-2024 End: 09-24-2024 Patient encounter procedure Jayant Jimenez MD Work Phone: Neurology Epilepsy Comment on above: 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) (Primary Dx); 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 osteoporosis; 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) use of other agents affecting estrogen receptors and estrogen levels; Encounter for screening for osteoporosis Start: 09-24-2024 End: 09-24-2024 ambulatory ORVILLE MATTEO MENDOZA Facility:[facility] Start: 09-22-2024 ambulatory Todd Boyd ty:[facility] Start: 09-22-2024 Registered Referred Todd Velasquez MD -[facility] Start: 09-19-2024 End: 09-22-2024 Telephone encounter Jayant Jimenez MD Work Phone: Neurology Comment on above: Outside Lab Results (PHENYTOIN) Start: 09-19-2024 ambulatory Todd Hwangi ty:[facility] Start: 09-19-2024 Registered Referred Todd Velasquez MD -[facility] Start: 09-17-2024 ambulatory Todd Hwangi ty:[facility] Start: 09-17-2024 Registered Referred Todd Velasquez MD -[facility] Start: 09-15-2024 ambulatory Todd FOX [facility] ty:[facility] Start: 09-05-2024 End: 09-05-2024 Telephone encounter Jayant Jimenez MD Work Phone: Neurology Comment on above: Forms (Review result s and orders) Start: 09-05-2024 End: 09-05-2024 ambulatory Todd FOX Facility:[facility] Start: 08-27-2024 End: 08-29-2024 Telephone encounter Jayant Jimenez MD Work Phone: Neurology Comment on above: Outside Labs Results (VPA) Start: 08-27-2024 End: 08-27-2024 ambulatory Todd FOX Facility:[facility] Start: 08-17-2024 End: 08-20-2024 Evaluation and management of inpatient TAO STARR Facility:[facility] Start: 08-17-2024 End: 08-17-2024 Telephone encounter Francisco Javier Salazar MD Work Phone: General Neurology Start: 08-17-2024 End: 08-17-2024 Emergency department patient visit Hayes Nicholson Facility:[facility] Start: 08-14-2024 End: 08-14-2024 ambulatory Todd FOX Facility:[facility] Start: 11-05-2023 Registered Referred [facility] Start: 10-29-2023 End: 10-29-2023 ambulatory [facility] Work Phone: Start: 10-29-2023 End: 10-29-2023 Departed Referred [facility] Start: 09-25-2023 End: 09-25-2023 ambulatory [facility] Work Phone: Start: 09-25-2023 End: 09-25-2023 Departed Referred [facility] Start: 09-18-2023 End: 09-18-2023 Emergency department patient visit [facility] Work Phone: Start: 08-15-2023 End: 08-15-2023 ambulatory [facility] Work Phone: Start: 08-15-2023 End: 08-15-2023 Departed Referred [facility] Start: 08-10-2023 Telephone encounter Neurology Provid er Neurology Comment on above: Release Of Medical R ecords Start: 08-07-2023 Telephone encounter Neurology Provid er Neurology Comment on above: Results Start: 08-06-2023 End: 08-06-2023 ambulatory [facility] Work Phone: Start: 08-06-2023 End: 08-06-2023 Departed Referred [facility] Start: 05-14-2023 End: 05-14-2023 Departed Referred [facility] Start: 11-27-2022 End: 11-27-2022 ambulatory [facility] Work Phone: Start: 11-27-2022 End: 11-27-2022 Departed Referred [facility] Start: 10-30-2022 End: 10-30-2022 Departed Referred [facility] Start: 10-24-2022 End: 10-24-2022 Departed Referred [facility] Start: 10-24-2022 Registered Referred [facility] Start: 09-04-2022 End: 09-04-2022 ambulatory [facility] Work Phone: Start: 09-04-2022 End: 09-04-2022 Departed Referred [facility] Start: 06-12-2022 End: 06-12-2022 ambulatory [facility] Work Phone: Start: 06-12-2022 End: 06-12-2022 Departed Referred [facility] Start: 03-20-2022 End: 03-20-2022 Departed Referred [facility] Start: 12-26-2021 End: 12-26-2021 Departed Referred [facility] Start: 12-26-2021 Registered Referred [facility] Start: 12-21-2021 End: 12-21-2021 Departed Referred [facility] Start: 12-21-2021 Registered Referred [facility] Start: 11-23-2021 End: 11-23-2021 Departed Referred [facility] Start: 02-09-2022 Registered Referred [facility] Start: 10-26-2021 End: 10-26-2021 Departed Referred [facility] Start: 10-03-2021 Registered Referred [facility] Start: 01-22-2019 Patient encounter procedure Orville Mendoza [facility] Start: 06-06-2018 Emergency department patient visit PROVIDER UNKNOWN [facility] Procedures Date Procedure Procedure Detail Performing Clinician Start: 04-06-[address] Todd Velasquez Sr. DO Work Phone: Start: 03-10-[address] Todd Velasquez Sr. DO Work Phone: Comment on above: Test Ordered: [id number] LacosamideTest(s) 0 00374-Mryjiktdtybwp developed and its performance characteristicsdetermined by [employer]. It has not been cleared or approvedby the Food and Drug Administration.Lacosamide 8.0 ug/mL Reference Range: 5.0-10.0 Limit of Detection 0.5 Mean plasma concentrations following maintenance dose 200 mg/day 4.99 +/- 2.51 ug/mL 400 mg/day 9.35 +/- 4.22 ug/mL 600 mg/day 12.46 +/- 5.60 ug/mLPerformed at: [facility] [employer] [id number] Director: Nahed Naidu MD, Phone: [phone] at: [address] [id number] Director: Haris Peraza PhD, Phone: [phone] Start: 02-27-2025 Calcium measurement Todd Velasquez MD Start: 02-27-2025 Electrophoresis: [id number] Dr. Gutierrez Ruiz DO Work Phone: Start: 02-27-2025 Electrophoresis: [id number] Dr. Gutierrez Ruiz DO Work Phone: Start: 02-27-2025 Electrophoresis: gamma globulin Dr. Todd Velasquez Sr. DO Work Phone: Start: 02-27-2025 Parathyroid hormone measurement Todd keenan MD Start: 02-27-[address] Todd Velasquez Sr. DO Work Phone: Comment on above: Test Ordered: [id number] C-Telopeptide, Seru mC-Telopeptide, Serum 197 pg/mL ES Reference Range: .Reference Range:Premenopausal Women: 34 - 635Postmenopausal Women: 34 - 1037Performed at: ES - [facility] [address] [place], [place] [id number] Director: Felix Bonilla MD, Phone: [phone] at: - [facility] [address] [id number] Director: Haris Peraza PhD, Phone: [phone] Start: 02-27-2025 Serum inorganic phosphate measurement Todd [...] Author Start: 12-08-2027 Diabetes Screening Diabetes Screening [facility] Start: 08-18-2027 Diabetes Screening Diabetes Screening [facility] Start: 11-26-2026 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 osteoporosis [facility] Start: 07-17-2025 End: 07-17-2025 Patient encounter procedure 07/17/2025 10:00 AM EDT Office Visit Neurology Epilepsy [address] [place] [address] Jayant Jimenez MD [address] [place], [place] [id number] 6 month follow-up Neurology Epilepsy Comment on above: 6 month follow-up Start: 06-15-2025 Influenza vaccination [facility] Start: 05-28-2025 End: 05-28-2025 Patient encounter procedure 05/28/2025 2:30 PM EDT Office Visit Rheumatology [address] [place] [address] Lolita Jain PALeroyC [address] [place] [address] 3 month follow up Rheumatology Comment on above: 3 month follow up Start: 02-27-2025 Procedure [facility] Start: 02-25-2025 End: 02-25-2025 Patient encounter procedure 02/25/2025 3:00 PM EDT Office Visit Rheumatology [address] [place] [address] Lolita Jain PA-C [address] [place] [address] osteoporosis Rheumatology Comment on above: osteoporosis Start: 02-25-2025 End: 05-27-2025 25-hydroxyvitamin D3 [Mass/volume] in Serum or Plasma VITAMIN D 25 HYDROXY Lab Routine Osteoporosis without current pathological fracture, unspecified osteoporosis type Expected: 02/25/2025, Expires: 05/27/2025 [facility] Comment on above: Expected: 02/25/2025, Expires: Start: 02-25-2025 End: 05-27-2025 Basic metabolic 2000 panel - Serum or Plasma BASIC METABOLIC PANEL Lab Routine Osteoporosis without current pathological fracture, unspecified osteoporosis type Expected: 02/25/2025, Expires: 05/27/2025 [facility] Work Phone: Comment on above: Expected: 02/25/2025, Expires: Start: 02-25-2025 End: 05-27-2025 Calcium.ionized [Moles/volume] in Blood CALCIUM, IONIZED Lab Routine Osteoporosis without current pathological fracture, unspecified osteoporosis type Expected: 02/25/2025, Expires: 05/27/2025 [facility] Comment on above: Expected: 02/25/2025, Expires: Start: 02-25-2025 End: 05-27-2025 Collagen crosslinked C-telopeptide [Mass/volume] in Serum or Plasma C TELOPEPTIDE, BETA Lab Routine Osteoporosis without current pathological fracture, unspecified osteoporosis type Expected: 02/25/2025, Expires: 05/27/2025 [facility] Comment on above: Expected: 02/25/2025, Expires: Start: 02-25-2025 End: 05-27-2025 Magnesium [Mass/volume] in Serum or Plasma MAGNESIUM Lab Routine Osteoporosis without current pathological fracture, unspecified osteoporosis type Expected: 02/25/2025, Expires: 05/27/2025 [facility] Comment on above: Expected: 02/25/2025, Expires: Start: 02-25-2025 End: 05-27-2025 Parathyrin.intact [Mass/volume] in Serum or Plasma PTH INTACT Lab Routine Osteoporosis without current pathological fracture, unspecified osteoporosis type Expected: 02/25/2025, Expires: 05/27/2025 [facility] Comment on above: Expected: 02/25/2025, Expires: Start: 02-25-2025 End: 05-27-2025 Phosphate [Mass/volume] in Serum or Plasma PHOSPHORUS INORGANIC Lab Routine Osteoporosis without current pathological fracture, unspecified osteoporosis type Expected: 02/25/2025, Expires: 05/27/2025 [facility] Comment on above: Expected: 02/25/2025, Expires: Start: 02-25-2025 End: 05-27-2025 PROTEIN ELECT RND UR W/INTERP PROTEIN ELECT RND UR W/INTERP Lab Routine Osteoporosis without current pathological fracture, unspecified osteoporosis type Expected: 02/25/2025, Expires: 05/27/2025 [facility] Comment on above: Expected: 02/25/2025, Expires: Start: 02-25-2025 End: 05-27-2025 PROTEIN ELECTROPHORESIS SERUM W/INTERP PROTEIN ELECTROPHORESIS SERUM W/INTERP Lab Routine Osteoporosis without current pathological fracture, unspecified osteoporosis type Expected: 02/25/2025, Expires: 05/27/2025 [facility] Comment on above: Expected: 02/25/2025, Expires: Start: 01-15-2025 End: 01-15-2025 Patient encounter procedure 01/15/2025 8:00 AM EDT Office Visit Neurology Epilepsy [address] [place] [address] Jayant Jimenez MD [address] [place] [address] 3 month follow-up Neurology Epilepsy Comment on above: 3 month follow-up Start: 12-03-2024 [facility] Start: 11-26-2024 End: 11-26-2024 Patient encounter procedure 11/26/2024 10:30 AM EST Appointment [facility] [address] [place] [address] Bone Density(TBS) [facility] Comment on above: Bone Density(TBS) Start: 11-25-2024 End: 11-25-2024 Patient encounter procedure 11/25/2024 8:00 AM EST Appointment RADIO BONE DENSITY [facility] [address] [facility] [place] [address] Bone Density(TBS) [facility] Comment on above: Bone Density(TBS) Start: 10-15-2024 Advance Directive Discussion Advance Directive Discussion [facility] Start: 09-24-2024 End: 09-24-2025 Ammonia [Moles/volume] in Plasma AMMONIA Lab Routine 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 osteoporosis Nonintractable generalized idiopathic epilepsy without status epilepticus (HCC) Expected: 09/24/2024, Expires: 09/24/2025 [facility] Work Phone: Comment on above: Expected: 09/24/2024, Expires: Start: 09-24-2024 End: 09-24-2024 Patient encounter procedure 09/24/2024 8:00 AM EST Office Visit Neurology Epilepsy [address] [facility] [address] [place] [address] Jayant Jimenez MD [address] [place], [place] [id number] Hospital Follow up Neurology Epilepsy Comment on above: Hospital Follow up Start: 06-15-2024 Covid-19 Vaccine ( season) Covid-19 Vaccine ( season) [facility] Start: 06-15-2024 Influenza vaccination Influenza Vaccine (#1) [facility] Start: 10-24-2023 Thyroid stimulating hormone measurement TSH Level [facility] Start: 10-15-2023 Advance Directive Discussion Advance Directive Discussion [facility] Start: 09-18-2023 [facility] Start: 09-18-2023 Seizure precautions [facility] Start: 06-15-2023 Influenza vaccination Influenza Vaccine (#1) [facility] Start: 10-15-2022 Advance Directive Discussion Advance Directive Discussion [facility] Start: 10-15-2022 Depression Assessment Depression Assessment [facility] Start: 2022 RSV Immunization for Adults (1 - 1-dose 75+ series) RSV Immunization for Adults (1 - 1-dose 75+ series) [facility] Start: 2022 RSV Vaccine (1 - 1-dose 75+ series) RSV Vaccine (1 - 1-dose 75+ series) [facility] Start: 08-07-2021 Diabetes Screening Diabetes Screening [facility] Start: 2012 Bone Density Screening Bone Density Screening [facility] Start: 2012 Pneumococcal Vaccine: 65+ (1 - PCV) Pneumococcal Vaccine: 65+ (1 - PCV) [facility] Start: 2012 Pneumococcal Vaccine: 65+ (1 of 1 - PCV) Pneumococcal Vaccine: 65+ (1 of 1 - PCV) [facility] Start: 2012 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 osteoporosis Bone Density Screening [facility] Start: 06-15-2012 Medicare Annual Wellness Visit Medicare Annual Wellness Visit [facility] Start: 2007 RSV Vaccine (1 - 1-dose 60+ series) RSV Vaccine (1 - 1-dose 60+ series) [facility] Start: 1997 Pneumococcal Vaccine: 50+ (1 of 1 - PCV) Pneumococcal Vaccine: 50+ (1 of 1 - PCV) [facility] Start: 1997 Pneumococcal Vaccine: 50+ Years (1 of 1 - PCV) Pneumococcal Vaccine: 50+ Years (1 of 1 - PCV) [facility] Start: 1997 Shingrix Vaccine (1 of 2) Shingrix Vaccine (1 of 2) [facility] Start: 1997 Zoster Vaccines (1 of 2) Zoster Vaccines (1 of 2) [facility] Start: 1966 DTaP/Tdap/Td Vaccines (1 - Tdap) DTaP/Tdap/Td Vaccines (1 - Tdap) [facility] Start: 1966 Urine microalbumin profile DTaP,Tdap,Td Vaccine (1 - Tdap) [facility] Start: 1965 Anxiety Screening Anxiety Screening [facility] Start: 1965 Depression Screening Depression Screening [facility] Start: 1965 Hepatitis C Screening Hepatitis C Screening [facility] Start: 1965 Hepatitis C screening Hepatitis C Screening [facility] Start: 1959 Depression Monitoring Depression Monitoring [facility] Start: 01-07-1946 Covid-19 Vaccine (#1) Covid-19 Vaccine (#1) [facility] Start: 1947 Lipid panel Lipid Panel [facility] Start: 1945 Medicare Annual Wellness (AWV) Medicare Annual Wellness (AWV) [facility] Albumin/Globulin [Ma ss Ratio] in Serum or Plasma by Electrophoresis [facility] End: 10-24-2025 BD DXA TRABECULAR BONE SCORE (TBS) BD DXA TRABECULAR BONE SCORE (TBS) Radiology Routine 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 osteoporosis 1 Occurrences starting 09/24/2024 until 10/24/2025 [facility] Comment on above: 1 Occurrences starting 09/24/2024 until 10/24/2025 End: 11-26-2024 BD DXA TRABECULAR BONE SCORE (TBS) [facility] Comment on above: 1 Occurrences starting 11/26/2024 until 11/26/2024 CALCIUM, 24 HR URINE CALCIUM, 24 HR URINE Lab Routine Osteoporosis without current pathological fracture, unspecified osteoporosis type Ordered: 02/25/2025 [facility] Comment on above: Ordered: 02/25/2025 CREATININE, 24 HOUR URINE CREATININE, 24 HOUR URINE Lab Routine Osteoporosis without current pathological fracture, unspecified osteoporosis type Ordered: 02/25/2025 [facility] Comment on above: Ordered: 02/25/2025 End: 10-24-2025 DXA Skeletal system.axial Views for bone density DXA-AXIAL SKELETON Radiology Routine 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 osteoporosis [facility] (current) use of other agents affecting estrogen receptors and estrogen levels 1 Occurrences starting 09/24/2024 until 10/24/2025 [facility] Comment on above: 1 Occurrences starting 09/24/2024 until 10/24/2025 End: 11-26-2024 DXA Skeletal system.axial Views for bone density [facility] Work Phone: Comment on above: 1 Occurrences starting 11/26/2024 until 11/26/2024 Electrophoresis: albumin [facility] Electrophoresis: [id number] [facility] Electrophoresis: [id number] [facility] Electrophoresis: franky ma globulin [facility] Globulin measurement [facility] End: 12-04-2024 Lacosamide [facility] Work Phone: Comment on above: Once (Lab) for 1 Occurrences starting until 12/04/2024 Patient Education ED Seizure, Re current (Adult) [facility] Work Phone: Patient referral [facility] Work Phone: Protein electrophore sis panel - Serum or Plasma [facility] Serum protein electrophoresis [facility] Total globulins measurement [facility] Immunizations Immunization Date Immunization Notes Care Provider Fa ciliglenda 07-11-2022 influenza virus vacc ine, unspecified formulation Miriam Hennessy DO Work Phone: [facility] m[employer]ura Payers Date Payer Category Payer Self-pay [id number] 2022 [facility] [id number] 2022 Medicaid [id number] 2016 Medicare supplementa l policy (as second payer) [employer] MEDICARE SUPPLEMENT [id number] 2016 Private Health Insurance 2016 Private Health Insurance [id number] 2015 Medicare [id number] 2012 Medicare 2012 Medicare [id number] 1945 Unknown [id number] .668 1945 Unknown [id number] 2.16840.1.469904.3.579.2 .668 Unknown [id number] 2.840.1.664555.3.579.2 .462 Unknown [id number] 2.840.1.373875.3.579.2 .462 Unknown [id number] 2.840.1.608886.3.579.2 .462 Unknown [id number] 2.16840.1.269641.3.579.2 .462 Unknown [id number] 2.16840.1.913310.3.579.2 .462 Unknown [id number] 2.840.1.251913.3.579.2 .462 Unknown [id number] 2.840.1.345138.3.579.2 .462 Unknown [id number] 2.16840.1.377885.3.579.2 .462 Unknown [id number] 2.16840.1.370821.3.579.2 .462 Unknown [id number] 2.16840.1.293886.3.579.2 .462 Unknown [id number] 2.840.1.741723.3.579.2 .462 Unknown [id number] 2.16840.1.980814.3.579.2 .462 Unknown [id number] 2.16.840.1.376410.3.579.2 .462 Unknown [id number] 2.16.840.1.897801.3.579.2 .462 Unknown [id number] 2.16.840.1.299595.3.579.2 .462 Unknown [id number] 2.16.840.1.521780.3.579.2 .462 Unknown [id number] 2.16.840.1.492495.3.579.2 .462 Unknown [id number] 2.16.840.1.993347.3.579.2 .462 Unknown [id number] 2.16.840.1.677042.3.579.2 .462 Unknown [id number] 2.16.840.1.086322.3.579.2 .462 Unknown [id number] 2.840.1.526859.3.579.2 .462 Social History Date Type Detail [facility] Work Phone: Start: 1945 Sex Assigned At Female [facility] Start: 08-07-2018 End: 09-24-2024 Tobacco smoking status NHIS Never smoked tobacco [facility] Start: 08-07-2018 End: 09-24-2024 Tobacco use and exposure Smokeless tobacco non-user [facility] Start: 09-01-2019 End: 09-19-2020 History of Social function [facility] Start: 09-01-2019 End: 09-19-2020 Tobacco use panel [facility] Adult Depression Screening Assessment 0 [facility] Start: 1945 Sex Assigned At Not on file [facility] Start: 09-18-2023 [facility] Has the electric, ga s, oil, or water company threatened to shut off services in your home in past 12Mo No [facility] (I/We) worried wheth er (my/our) food would run out before (I/we) got money to buy more. Never true [facility] History of tobacco use Passive smoker [facility] Start: 01-27-2020 Alcoholic beverage intake Current non-drinker of alcohol (finding) [facility] Are you now , , , , never or living with a partner? Never [facility] How often to you hav e a drink containing alcohol? Never [facility] How hard is it for y ou to pay for the very basics like food, housing, medical care, and heating Not very hard [facility] Do you feel stress - tense, restless, nervous, or anxious, or unable to sleep at night because your mind is troubled all the time - these days [OSQ] Not at all [facility] Start: 05-15-2022 End: 02-10-2025 Sex Female (finding) [facility] Medical Equipment Procedure Code Equipment Code Equipment Origin al Text Equipment Identifier Dates Use 1 pen needle once daily as directed for Teriparatide injections [id number] Start: 03-03-2025 Functional Status Date Assessment Result Facility 08-20-2024 Are you deaf, or do you have serious difficulty hearing No 08/20/2024 11:29 AM Jennifer Coy RN No [facility] 08-20-2024 Are you blind, or do you have serious difficulty seeing, even when wearing glasses No 08/20/2024 11:29 AM Jennifer Coy RN No [facility] 08-20-2024 Do you have serious difficulty walking or climbing stairs Yes 08/20/2024 11:29 AM Jennifer Coy, MEGA Yes [facility] 08-20-2024 Do you have difficul ty dressing or bathing Yes 08/20/2024 11:29 AM Jennifer Coy RN Yes [facility] 08-20-2024 Because of a physica l, mental, or emotional condition, do you have difficulty doing errands alone such as visiting a physician's office or shopping Yes 08/20/2024 11:29 AM Jennifer Coy RN Yes [facility] Mental Status Date Assessment Result Facility 12-03-2024 Cognitive function Level Of Cons ciousness Awake;Appropriate;Follows Commands;Drowsy [facility] Work Phone: 08-20-2024 Because of a physica l, mental, or emotional condition, do you have serious difficulty concentrating, remembering, or making decisions Yes 08/20/2024 11:29 AM Jennifer Coy, MEGA Yes [facility] 09-18-2023 Cognitive function Voice/Name Amparo [facility] Work Phone: Clinical Notes 08-08-2023 to 04-16-2025 Telephone Encounter - Shavonne Sinclair RN - 04/16/2025 10:19 AM EDTTelephone Encounter - Shavonne Sinclair RN - 04/16/2025 10:19 AM EDTTelephone Encounter - Jacki Sumner MA - 02/26/2025 2:54 PM EDT Note Date & Type Note Facility 04-16-2025 Telephone encounter Note Telephone encounter faxed. Shavonne Sinclair RN [facility] 04-16-2025 Miscellaneous Notes Telephone encounter faxed. Shavonne Sinclair RN Received outside medical records from [facility] dated 04/06/25 PTH level is 76 [...] don't use in patients who have had CO/Stroke in the past year. She will review with Katheryn and ERNESTINE and let us know preference moving forward regarding treatment. Thanks KG Please fax this phone encounter to [phone] for their records documented in this encounter [facility] 04-16-2025 Telephone encounter Note Received outside medical records from [facility] dated 04/06/25 PTH level is 76 [...] don't use in patients who have had CO/Stroke in the past year. She will review with Katheryn and ERNESTINE and let us know preference moving forward regarding treatment. Thanks KG Please fax this phone encounter to [phone] for their records [facility] 02-26-2025 Telephone encounter Note Hermann Avalos from [facility] called back. Message from Lolita Jain PA-C given and she verbalized understanding. [facility] 02-26-2025 Miscellaneous Notes Hermann Avalos from [facility] called back. Message from Lolita Jain PA-C given and she verbalized understanding. Ok to disregard 24 hour urine testing. Just have her take calcium citrate 600 mg daily, this will be fine with her current dietary intake. Volodymyr from [facility] called into office requesting clarification of calcium citrate supplement. Per office note SHILO velazquez states "The recommendation is 7530-0847 mg of calcium daily between diet and [...] Felipa Zuñiga LPN documented in this encounter [facility] 02-26-2025 Telephone encounter Note Ok to disregard 24 hour urine testing. Just have her take calcium citrate 600 mg daily, this will be fine with her current dietary intake. [facility] 02-26-2025 Telephone encounter Note Volodymyr from [facility] called into office requesting clarification of calcium citrate supplement. Per office note SHILO velazquez states "The recommendation is 5833-1744 mg of calcium daily between diet and supplement. If she continues to eat 3 servings of dairy per day, I recommend additional 600 mg daily via calcium citrate supplement. " Office note faxed to [facility]. Nurse states that patient in almost completely incontinence and they state a 24 hr urine will be difficult. Please advise. Felipa Zuñiga LPN [facility] Work Phone: 02-26-2025 History of Present illness Narrative [facility] received prescription(s) for Teriparatide from Lolita Jain 's office. Benefits investigation was conducted, indicating that a prior authorization is required by patient's insurance plan with [facility]. Note will be updated once prior authorization has been submitted. Petrona Almanza CPhT (Dee) [facility] Neurology/Cardiology/Infections Disease [facility] P: F: documented in this encounter [facility] 02-26-2025 Note HNO ID: [id number] Author: ?, ?, ? Service: ? Author Type: ? Type: Progress Notes Filed: 02/26/2025 07:55 Note Text: [facility] received prescription(s) for Teriparatide from Lolita Jain 's office. Benefits investigation was conducted, indicating that a prior authorization is required by patient's insurance plan with [facility]. Note will be updated once prior authorization has been submitted. Petrona Almanza CPhT (Dee) [facility] Neurology/Cardiology/Infections Disease [facility] P: F: [facility] 02-26-2025 Note HNO ID: [id number] Author: ?, ?, ? Service: ? Author Type: ? Type: Progress Notes Filed: 02/27/2025 07:44 Note Text: [facility] received prescription(s) for Teriparatide PA was approved with details listed below. Plan Name [employer] reference number: [id number] Approval Dates: 10/15/24 - 02/16/27 Prescriptions will now be processed through [facility] for determination of next steps. Petrona Almanza CPhT (Dee) [facility] Neurology/Cardiology/Infections Disease [facility] P: F: [facility] 02-26-2025 Note HNO ID: [id number] Author: GUILLE CORONA RPh Service: ? Author Type: Pharmacist Type: Progress Notes Filed: 04/19/2025 14:37 Note Text: Per 04-16-25 encounter from Lolita Jain PA: Received outside medical records from [facility] dated 04/06/25 PTH level is 76 [...] don't use in patients who have had CO/Stroke in the past year. She will review with Katheryn and ERNESTINE and let us know preference moving forward regarding treatment. Teriparatide start on hold; at this time, no further action required by [facility]. Guille Corona, PharmD, CSP, MSCS Pharmacist, [facility] 02-26-2025 Note HNO ID: [id number] Author: ?, ?, ? Service: ? Author Type: ? Type: Progress Notes Filed: 02/26/2025 16:22 Note Text: [facility] received prescription(s) for Teriparatide PA was initiated and pending review. Plan Name: Kameronscripts Plan Agent/Castellanos: cm castellanos [id number] Case: [id number] Timeline: magdalena Almanza CPhT (Dee) Lead [facility] Neurology/Cardiology/Infections Disease [facility] P: F: [facility] 02-25-2025 Instructions Lolita Jain PA-C - [...] prescription for Forteo (teriparatide) injections to the [facility] they will reach out regarding shipment Follow up 3 months documented in this encounter [facility] 02-25-2025 History of Present illness Narrative Images from the original note were not included. 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 VERTEBRAL FRACTURE ASSESSMENT Not performed. TRABECULAR [...] FOR MORE INFORMATION ABOUT DIAGNOSIS AND TREATMENT: [facility] Center for Osteoporosis and Metabolic Bone Disease:? www.ccf.org/arthritis/osteo National Osteoporosis Foundation:? www.nof.org International Society of Clinical Densitometry www.iscd.org Computer Discovery Teacher: SUNSHINE Transcribe Date/Time: Nov 29 2024 2:05P Dictated by : ALEAX CRUZ MD This examination was interpreted and [...] mg/spray (0.1 mL) nasal spray Use 1 Pitcher in the nose as needed for seizures [...] units per day Plan The recommendation is 1532-6324 mg of calcium daily between diet and [...] pt ACR handout Will send order to [facility] specialty pharmacy while awaiting lab results. Follow [...] which included preparing to see the patient, [id number] patient care, completing clinical documentation, obtaining and/or reviewing separately obtained history, performing a medically appropriate examination, counseling and educating the patient/family/caregiver, ordering medications, tests, or procedures, and communicating results to the patient/family/caregiver. Lolita Jain PA-C cc: PCP: Orville Mendoza [address] [place], [place] [id number] documented in this encounter [facility] 02-25-2025 Note HNO ID: [id number] Author: LOLITA JAIN PA-C Service: ? Author Type: Physician Lot Porter Type: Progress Notes Filed: 02/25/2025 16:03 Note Text: Osteoporosis and Metabolic Bone Disease CONSULTATION Referring Provider: Jayant Jimenez Date of Service: 02/25/2025 Gender: female Ethnicity: White Age: [age] year old Chief Complaint: New Patient Last Rheumatology visit: None at [facility] Katheryn Chino is a 79 year old [...] OF EXAM: Nov 26 2024 11:08AM AWX Shweta - BD DXA - AXIAL SKELETON / PROCEDURE REASON: multiple diagnoses * * * * Physician Interpretation * * * * EXAMINATION: DXA BONE DENSITOMETRY BD DXA - AXIAL SKELETON, BD DXA TRABECLR BONE SCORE (TBS) PATIENT DEMOGRAPHICS: Age: 79 years, Gender: Female SCANNER INFORMATION: DXA Model: Laser[employer] - [employer] [id number] Date Scanned: 11/26/2024 11:08 AM CLINICAL HISTORY: DIAGNOSTIC 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 osteoporosis [facility] (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 VERTEBRAL FRACTURE ASSESSMENT Not performed. TRABECULAR [...] should not replace (more content not included)... [facility] 01-16-2025 Telephone encounter Note The following [...] was identified. 01/16/2025 by Mayda Harrison PA-C [facility] 01-16-2025 Miscellaneous Notes The following approved medication [...] Medication Concern Person Calling Katia Nurse from [facility] Name of medication Lacosamide Concern with medication They have Katheryn taking 100MG in the morning and 50 mg at night. Per yesterdays appointment it states 150mg at time time. What one should they do ? Patient of Dr. Jimenez documented in this encounter [facility] 01-16-2025 Telephone encounter Note 01/15/[address] [...] to be sent in. Sandra Casey RN [facility] 01-16-2025 Telephone encounter Note Medication Concern Person Calling Katia Nurse from [facility] Name of medication Lacosamide Concern with medication They have Katheryn taking 100MG in the morning and 50 mg at night. Per yesterdays appointment it states 150mg at time time. What one should they do ? Patient of Dr. Jimenez [facility] 01-15-2025 Note HNO ID: [id number] Author: JAYANT JIMENEZ MD Service: ? Author Type: Physician Type: Progress Notes Filed: 01/15/2025 08:54 Note Text: [facility] Patient Name: Katheryn Chino Date of : 1945 ESTABLISHED EPILEPSY CLINIC NOTE 01/15/2025 8:00 AM Reason for Visit: Follow Up and Epilepsy Clinical Summary: Ms. Chino is a 79 year old female seen in [facility]. At today's visit, the patient [...] with AEDs . She moved to a [place] and she has more suervison with AEDs now. 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 She had good seizure control for a few years until covid. Hospitaltization in Aug 2024 for a prolonged GTCS at the facility ( brother reports it lasted ~ 25 mins). Admitted to [facility] where Dilantin and Depakote levels were low. [...] nasal spray (Taking As Needed) Use 1 Pitcher in the nose as needed for seizures [...] 2 SCORE - (more content not included)... [facility] 01-15-2025 History of Present illness Narrative [facility] Patient Name: Katheryn Chino Date of : 1945 ESTABLISHED EPILEPSY CLINIC NOTE 01/15/2025 8:00 AM Reason for Visit: Follow Up and Epilepsy Clinical Summary: Ms. Chino is a 79 year old female seen in [facility]. At today's visit, the patient [...] with AEDs . She moved to a [place] and she has more suervison with AEDs now. 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 She had good seizure control for a few years until covid. Hospitaltization in Aug 2024 for a prolonged GTCS at the facility ( brother reports it lasted ~ 25 mins). Admitted to [facility] where Dilantin and Depakote levels were low. 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 -Vocation: -Education: -Cigarette, [...] impaired coordination greater on the right on hymiyb-aj-[id number] testing Postural and action tremor in both [...] precautions - No driving in the state [facility] until seizure free for 6 months. [...] which included: preparing to see the patient [id number] patient care completing clinical documentation obtaining and/or reviewing separately obtained history performing a medically appropriate examination counseling and educating the patient/family/caregiver ordering medications, tests, or procedures Jayant Jimenez MD cc: Primary Care Physician: Orville Mendoza, DO [address] [place], [place] [id number] Referring: Patient: Ms. Katheryn Chino [id number] [id number] documented in this encounter [facility] 01-15-2025 Instructions Jayant Jimenez MD - 01/15/2025 [...] precautions - No driving in the state of [place] until seizure free for 6 months. Please [...] factor. Jayant Jimenez MD Associate Staff, Epilepsy [facility] January 15, 2025 Office phone: [phone] documented in this encounter [facility] 12-24-2024 Telephone encounter Note The following approved medication requests have been transmitted electronically. Requested Prescriptions Signed Prescriptions Disp Refills diazePAM (VALTOCO) 10 mg/spray (0.1 mL) nasal spray 2 Each 1 Sig: Use 1 Pitcher in the nose as needed for seizures lasting longer than 3 minutes. May repeat dose once after 4 hours based on response and tolerability for a maximum of 2 doses per 24-hour period. Authorizing Provider: ARTIS HAMILTON APRN.CNP [facility] 12-24-2024 Miscellaneous Notes The following approved medication requests have been transmitted electronically. Requested Prescriptions Signed Prescriptions Disp Refills diazePAM (VALTOCO) 10 mg/spray (0.1 mL) nasal spray 2 Each 1 Sig: Use 1 Pitcher in the nose as needed for seizures lasting longer than 3 minutes. May repeat dose once after 4 hours based on response and tolerability for a maximum of 2 doses per 24-hour period. Authorizing Provider: ARTIS HAMILTON APRN.CNP We can trial Valtoco KLP ODT takes much longer to work Spoke with nurse Rosita. Facility DON would [...] of Dr. Jimenez documented in this encounter [facility] 12-24-2024 Telephone encounter Note We can trial Valtoco KLP ODT takes much longer to work [facility] 12-24-2024 Telephone encounter Note See 12/23/24 phone encounter. Silvia Rogers RN [facility] 12-24-2024 Miscellaneous Notes See 12/23/24 phone encounter. Silvia Rogers RN Level WNL If she has not had further seizures since reaching 100/150 of LCM can continue dose unchanged, any seizures would increase to 150/150 Artis Hamilton APRN.ICT SALES ASSISTANT Images from the original note were not included. Current LCM dose 100/150 Forwarded to [employer] for review. Silvia Rogers RN OUTSIDE LAB REPORT FACILITY NAME [facility] PHONE/FAX COLLECTION DATE AND TIME: 12/15/24 540 Uploaded to [facility] documented in this encounter [facility] 12-24-2024 Telephone encounter Note Spoke with nurse Becker at [facility]. See 12/23/24 encounter. Silvia Rogers RN [facility] 12-24-2024 Miscellaneous Notes Spoke with nurse Becker at [facility]. See 12/23/24 encounter. Silvia Rogers RN ORDERS Person requesting order: [facility] Phone number: [phone] Order being requested: Facility: [facility] Patient of Dr. Jimenez Forwarded to Nurse documented in this encounter [facility] 12-24-2024 Telephone encounter Note Spoke with nurse [...] MARIO 2 for review. Silvia Rogers RN [facility] 12-24-2024 Telephone encounter Note ORDERS Person requesting order: [facility] Phone number: [phone] Order being requested: Facility: [facility] Patient of Dr. Jimenez Forwarded to Nurse [facility] 12-23-2024 Telephone encounter Note Medication Concern Person Calling Rosita Cornejo, from [facility], ask for Pat's nurse Name of medication Nayzilam Concern with medication Nurse states the medication did not work the last time the patient had a seizure. Wants to know if another rescue medication can be prescribed instead. Patient of Dr. Jimenez [facility] 12-19-2024 Telephone encounter Note Level WNL If she has not had further seizures since reaching 100/150 of LCM can continue dose unchanged, any seizures would increase to 150/150 Artis Hamilton APRN.ICT SALES ASSISTANT [facility] 12-19-2024 Telephone encounter Note Images from the original note were not included. Current LCM dose 100/150 Forwarded to MARIO [employer] for review. Silvia Rogers RN [facility] 12-19-2024 Telephone encounter Note OUTSIDE LAB REPORT FACILITY NAME [facility] PHONE/FAX COLLECTION DATE AND TIME: 12/15/24 540 Uploaded to [facility] 12-08-2024 Plan of care note Problem: Knowledge [...] Interventions Goal: Assess Nutritional Intake Outcome: Completed [facility] 12-08-2024 Plan of care note Problem: [...] Interventions Goal: Assess Nutritional Intake Outcome: Completed [facility] 12-08-2024 Miscellaneous Notes Problem: Knowledge Deficit [...] med list transmitted to SNF Return - [facility] request. Transport requested in Roundtrip. Awaiting time confirmation. Confirmed pickup time of 3:00 by transport [employer] at phone number . Location of facility drop off is [facility]. [facility] notified on secure chat. Pt is stable for DC to return to [facility]. [facility] tasked to arrange transport and to send DC notes/MAR to SNF. Transport arranged for 3:00 today. Pt's brother called, Danny [phone], updates given. Problem: Knowledge Deficit Goal: Patient/family/caregiver [...] RN Outcome: Progressing 12/06/2024 0018 by Maria Victorai Zapata RN Outcome: Progressing Goal: Nutritional status [...] or improved Outcome: Progressing Pt adm from [facility] SNF/LTC, with Sepsis 2nd to UTI. Plan is to return. Facility will adm pt back skilled under Medicare. Called pt's brother Danny [phone] was called and updated. CM to follow. [...] 12-04-24 during interdisciplinary rounds. Pt admitted from [facility] due to seizures. Pt has a history of seizure disorder. No needs anticipated but SW available as needs arise. documented in this encounter [facility] 12-08-2024 Note Formatting of this n ote might be different from the original. MAR & Discharge med list transmitted to [facility] via [facility] per TCC request. [facility] 12-08-2024 Note Formatting of this n ote might be different from the original. MAR & Discharge med list transmitted to [facility] via [employer] per TCC request. [facility] 12-08-2024 Note Formatting of this n ote might be different from the original. Transport requested in Roundtrip. Awaiting time confirmation. Confirmed pickup time of 3:00 by transport company [employer] at phone number . Location of facility drop off is [facility]. Facility notified via Martine Arriaza notified on secure chat. [facility] 12-08-2024 Note Formatting of this n ote might be different from the original. Transport requested in Roundtrip. Awaiting time confirmation. Confirmed pickup time of 3:00 by transport company [employer] at phone number . Location of facility drop off is [facility]. Facility notified via Martine Arriaza notified on secure chat. [facility] 12-08-2024 Note Formatting of this n ote might be different from the original. Pt is stable for DC to return to [facility] SNF. [employer] tasked to arrange transport and to send DC notes/MAR to SNF. Transport arranged for 3:00 today. Pt's brother called, Danny [phone], updates given. [facility] 12-08-2024 Note Formatting of this n ote might be different from the original. Pt is stable for DC to return to [facility] SNF. [employer] tasked to arrange transport and to send DC notes/MAR to SNF. Transport arranged for 3:00 today. Pt's brother called, Danny [phone], updates given. [facility] 12-08-2024 Note Hospitalist Discharg e Summary Katheryn Chino : 1945 Admit date: 12/03/2024 Discharge date: 12/08/2024 Admitting Physician: Fazal Garza MD Primary Care Physician: Orville Mendoza DO Visit Status: inpt Code Status: Full Code BRIEF HOSPITAL COURSE: Katheryn is a 79 y.o. Presenting from [place] for breakthrough seizure, Was found to meet [...] now Question: Diet type Answer: Regular 12/04/24 012 Activity: as tolerated Recommended Outpatient Tests: Disposition: [...] CALCIUM 8.8 9.0 8.7* Recent Labs 12/06/2445312/07/24 0512/08/24 0358 WBC 5.3 6.1 5.9 RBC 3.66* [...] 10 MEQ ER (more content not included)... [facility] 12-08-2024 Hospital course Narrative Images from the original note were not included. Hospitalist Discharge Summary Katheryn Chino : 1945 Admit date: 12/03/2024 Discharge date: 12/08/2024 Admitting Physician: Fazal Garza MD Primary Care Physician: Orville Mendoza DO Visit Status: inpt Code Status: Full Code BRIEF HOSPITAL COURSE: Katheryn is a 79 y.o. Presenting from [place] for breakthrough seizure, Was found to meet [...] 01/27/2020 Peptic ulcer disease 01/27/2020 Seizure disorder ([facility]) 01/27/2020 Hospital Course: See discharge [...] Complexity: follow up within 7-14 calendar days (70442) [x] Severe Complexity: follow up within 7 calendar days (45424) Follow up Testing, Pending results or Referrals [...] appointment within the above time frame. Signed: eDnise Hair DO Division of Hospitalist Medicine [facility] 12/08/2024, 11:02 AM documented in this encounter [facility] 12-08-2024 Hospital Discharge instructions Martine Glasgow, RN - 12/08/2024 9:38 AM EST Images [...] Emergency Contact: Danny Chino Mobile Relation: Brother Jukebox Coin Collector needed? No Past Surgical History: No past [...] assistance Toileting Total assistance Feeding Minimal assistance Service Technician Copier Minimal assistance Med Delivery yes Wound Care [...] Date: 12/03/2024 Discharging to Facility/ Agency Name: [facility] Address: [address] [place] [address] Fax: Dialysis Facility (if applicable) Name: [facility] Address: Dialysis Schedule: Phone: Fax: Rn Allergy/Color Repairer signature: ICIAN SECTION Name: Katheryn Chino Prognosis: good Condition at Discharge: stable Rehab Potential (if transferring to Rehab): good Recommended Labs or Other Treatments After Discharge: bmp, cbc 1 week The individual is being admitted to a nursing facility directly from an [facility] or a unit of a [facility] that is not operated by or licensed by [facility] under section 5119.14 or 5160-3-15.1 5 The individual requires the level of services provided by a nursing facility for the condition for which he or she was treated in the hospital and, Physician Certification: I certify the above information and transfer of Katheryn Chino is necessary for the continuing treatment of the diagnosis listed and that she requires long term facility for less than 30 days. Update Admission H&P: No change in H&P PHYSICIAN SIGNATURE: documented in this encounter [facility] 12-08-2024 Plan of care note Problem: Knowledge [...] Interventions Goal: Assess Nutritional Intake Outcome: Progressing [facility] 12-07-2024 Note Hospitalist Progress Note 12/07/2024 Subjective: Admit Date: 12/03/2024 PCP: Orville Mendoza DO Room#: N3-501/N3-270 A BRIEF HOSPITAL COURSE: Katheryn is a 79 y.o. Presenting from [place] for breakthrough seizure, Was found to meet [...] PLT 148 158 169 BMP: Recent Labs 12/05/2444312/06/24 0454 12/07/24 0519 NA 141 141 142 [...] Date: 12/03/2024 PCP: Orville Mendoza, DO Room#: [id number] A BRIEF HOSPITAL COURSE: Katheryn is a 79 y.o. Presenting from [place] for breakthrough seizure, Was found to meet [...] Emergency Contact: Danny Chino Mobile Relation: Brother Jukebox Coin Collector needed? No Denise Hair DO Division of Hospitalist Medicine [facility] Hospitalist Progress Note 12/06/2024 Subjective: Admit Date: 12/03/2024 PCP: Orville Mendoza DO Room#: N3-358/N3-358 A BRIEF HOSPITAL COURSE: Katheryn is a 79 y.o. Presenting from [place] for breakthrough seizure, Was found to meet [...] Emergency Contact: Danny Chino Mobile Relation: Brother Jukebox Coin Collector needed? No Denise Hair DO Division of Hospitalist Medicine Acute [facility] Nutrition Assessment Type and Reason for [...] (appropriate for age) Fluid Accumulation: Mild Extremities Aquaculture Director Strength: Not Performed Nutrition Assessment: 79 y.o. female presented from [place] for breakthrough seizure, Was found to meet [...] On: Kcal/kg Weight Used for Energy Requirements: [place] Weight for Energy Calculation (kg): 52 kg Total Energy Requirements (kcals/day): 6152-9348 (25-30) Weight Used for Protein Requirements: [place] Weight in Kg Used for Protein Requirements: 52 kg Estimated Total Protein (g/day): 52-62 (1.0-1.2) Estimated Daily Total Fluid (ml/day): per MD Nutrition Related Findings: Lives with: Other (Comment) ([facility]), Orientation Level: Oriented X4, Cognition: Follows commands, [...] lb) (09/24/24 per review of OP notes) [place] Body Weight (lbs) (Calculated): 115 lbs [place] Body Weight (Kg) (Calculated): 52 kg Wt [...] determine Jacki Franco MS RD LD Contact: [employer] or *[id number] Nutrition rescreen completed. Patient referred to the Dietitian due to wound consult for pressure injury. CLINTON Borden Hospitalist Progress Note 12/05/2024 Subjective: Admit Date: 12/03/2024 PCP: Orville Mendoza DO Room#: N3-351/N3-351 A BRIEF HOSPITAL COURSE: Katheryn is a 79 y.o. Presenting from [place] for breakthrough seizure, Was found to meet [...] Primary Emergency Contact: ClaritaleDanny Mobile Relation: Brother Jukebox Coin Collector needed? No Denise Hair DO Division of Hospitalist Medicine [facility] General Neurology Follow-up Date of [...] nerves: I: smell Not tested II: visual hutn Full to confrontation II: pupils Equal, round, [...] childhood) and cerebellar atrophy who presented to [facility] on 12/03 following witnessed seizure at [...] precautions - Already established with neurology through [facility], so can follow-up with them as outpatient [...] known history of generalized epilepsy-EEG unlikely to plant changer at this time -Some confusion about [...] Denise Hair D.O. Division of Hospitalist Medicine [facility] Images from the original note were not included. OCCUPATIONAL THERAPY [facility] Initial Evaluation Name/MRN: Katheryn Chino ([id number]) Evaluation Date: 12/04/2024 Date of : 1945 Admission Date: 12/03/2024 6:35 PM Age: 79 y.o. Room[facility]Bed: [facility] A Discharge Recommendation: Home with Home health [...] Class I, BMI 30-34.9 08/18/2024 Breakthrough seizure ([facility]) ([facility]) 08/17/2024 Dysarthria 08/07/2018 Ataxia 08/07/2018 Depression 10/26/2020 Cerebellar degeneration ([facility]) ([facility]) 10/26/2020 Other specified hypothyroidism 01/27/2020 Seizure disorder ([facility]) ([facility]) 01/27/2020 Peptic ulcer disease 01/27/2020 [...] AxOx self and hospital Social/Functional History From [facility] and has been there for 11.5 [...] of Care supervision is transferred to a [facility] Therapy Services Occupational Therapist. Goals and/or treatment plan was established in collaboration with patient/family/other representatives. Mary Morataya OTR/L Images from the original note were not included. PHYSICAL THERAPY [facility] Initial Evaluation Name/MRN: Katheryn Chino ([id number]) Evaluation Date: 12/04/2024 Date of : 1945 [...] and mod of 1 [address] [facility]. Plan is to return to [facility]. Admitting Diagnosis: Sepsis due to UTI, [...] Noted Sepsis due to urinary tract infection ([facility]) 12/03/2024 Obesity, Class I, BMI 30-34.9 08/18/2024 Breakthrough seizure (CMS/HCC) ([facility]) 08/17/2024 Dysarthria 08/07/2018 Ataxia 08/07/2018 Depression 10/26/2020 Cerebellar degeneration (CMS/HCC) ([facility]) 10/26/2020 Other specified hypothyroidism 01/27/2020 Seizure disorder (CMS/HCC) ([facility]) 01/27/2020 Peptic ulcer disease 01/27/2020 [...] issues noted Hearing: normal Social/Functional History From [facility] and has been there for 11.5 [...] self corrected. Standing balance poor+ (2/10 Modified [place]) Bed Mobility: Supine to sit: Min Assist [...] of Care supervision is transferred to a [facility] Therapy Services Physical Therapist. Goals and/or treatment plan was established in collaboration with patient/family/other representatives. documented in this encounter [facility] 12-07-2024 Plan of care note Problem: Knowledge [...] Interventions Goal: Assess Nutritional Intake Outcome: Progressing [facility] 12-06-2024 Note Hospitalist Progress Note 12/06/2024 Subjective: Admit Date: 12/03/2024 PCP: Orville Mendoza, DO Room#: N3-358/N3-358 A BRIEF HOSPITAL COURSE: Katheryn is a 79 y.o. Presenting from [place] for breakthrough seizure, Was found to meet [...] 01/27/2020 Peptic ulcer disease 01/27/2020 Seizure disorder ([facility]) 01/27/2020 LABS: CBC: Recent Labs 12/04/24 0537 [...] (appropriate for age) Fluid Accumulation: Mild Extremities Aquaculture Director Strength: Not Performed Nutrition Assessment: 79 y.o. female presented from [place] for breakthrough seizure, Was found to meet [...] On: Kcal/kg Weight Used for Energy Requirements: [place] Weight for Energy Calculation (kg): 52 kg Total Energy Requirements (kcals/day): 9197-9817 (25-30) Weight Used for Protein Requirements: [place] Weight in Kg Used for Protein Requirements: 52 kg Estimated Total Protein (g/day): 52-62 (1.0-1.2) Estimated Daily Total Fluid (ml/day): per MD Nutrition Related Findings: Lives with: Other (Comment) ([facility]), Orientation Level: Oriented X4, Cognition: Follows [...] lb) (09/24/24 per review of OP notes) [place] Body Weight (lbs) (Calculated): 115 lbs [place] Body Weight (Kg) (Calculated): 52 kg Wt [...] Skin Integrity is Maintained or Improved 12/06/2024 05 by Maria Victoria Zapata RN [...] by Maria Victoria Zapata RN Outcome: Progressing [facility] 12-06-2024 Plan of care note Problem: Knowledge Deficit Goal: Patient/family/caregiver demonstrates understanding of disease process, treatment plan, medications, and discharge instructions Outcome: Progressing Problem: Potential for Compromised Skin Integrity Goal: Skin Integrity is Maintained or Improved Outcome: Progressing Goal: Nutritional status is improving Outcome: Progressing Problem: Urinary Incontinence Goal: Perineal skin integrity is maintained or improved Outcome: Progressing [facility] 12-05-2024 Note Formatting of this n ote might be different from the original. Pt adm from [facility] SNF/LTC, with Sepsis 2nd to UTI. Plan is to return. Facility will adm pt back skilled under Medicare. Called pt's brother Danny, was called and updated. CM to follow. [facility] 12-05-2024 Note Formatting of this n ote might be different from the original. Pt adm from [facility] SNF/LTC, with Sepsis 2nd to UTI. Plan is to return. Facility will adm pt back skilled under Medicare. Called pt's brother Danny, was called and updated. CM to follow. [facility] 12-05-2024 Telephone encounter Note Updated LCM 150mg BID rx faxed via [employer]ax to [facility]. Confirmation received. Silvia Rogers RN [facility] 12-05-2024 Miscellaneous Notes Updated LCM 150mg BID rx faxed via [employer] to [facility]. Confirmation received. Silvia Rogers RN The following approved medication requests have been transmitted electronically. Requested Prescriptions Signed Prescriptions Disp Refills lacosamide (VIMPAT) 150 mg tab 180 tablet 1 Sig: Take 1 tablet by mouth two times a day for 180 days. Authorizing Provider: ARTIS HAMILTON APRN.DWAYNE Spoke with nurse Katia at [facility]. Informed her of recommendations to increase LCM to 150mg BID, with read back. Nurse requests rx to be faxed to the facility. [facility] PH: [phone] FAX : [phone] Silvia Rogers RN Called the patient's facility. Left message for the nurse to call back regarding recommendations. Silvia Rogers RN If no clear triggers will likely need to adjust doses. Would consider further increasing LCM to 150 mg BID Artis Hamilton APRN.ICT SALES ASSISTANT Seizure Call - spoke with nurse Katia. [facility] PH: [phone] FAX : [phone] Last Visit: 09/24/24 Next Visit: 01/15/25 Date [...] Other: patient was taken to local ED, [facility]. The patient will be transferred to [...] RN Received patients seizure monitoring sheet from [facility]. Uploaded to [facility] documented in this encounter [facility] 12-05-2024 Note Hospitalist Progress Note 12/05/2024 Subjective: Admit Date: 12/03/2024 PCP: Orville Mendoza DO Room#: N3-351/N3-351 A BRIEF HOSPITAL COURSE: Katheryn is a 79 y.o. Presenting from [place] for breakthrough seizure, Was found to meet [...] disorder (CMS/HCC) 01/27/2020 LABS: CBC: Recent Labs 02/19/193912/04/2437 12/05/24 0444 WBC 10.9* 7.5 6.2 RBC 4.12 3.56* 3.37* HGB 11.6* 10.3* 9.6* HCT 36.9 31.7* 30.4* MCV 89.6 89.0 90.2 RDW 13.2 13.4 13.3 PLT 202 150 148 BMP: Recent Labs 12/03/24193912/04/2437 12/05/24 0444 NA 141 140 141 K [...] integrity is maintained or improved Outcome: Progressing [facility] 12-04-2024 Telephone encounter Note The following approved medication requests have been transmitted electronically. Requested Prescriptions Signed Prescriptions Disp Refills lacosamide (VIMPAT) 150 mg tab 180 tablet 1 Sig: Take 1 tablet by mouth two times a day for 180 days. Authorizing Provider: ARTIS HAMILTON APRN.ICT SALES ASSISTANT [facility] 12-04-2024 Plan of care note Problem: Knowledge Deficit Goal: Patient/family/caregiver demonstrates understanding of disease process, treatment plan, medications, and discharge instructions Outcome: Progressing Problem: Potential for Compromised Skin Integrity Goal: Skin Integrity is Maintained or Improved Outcome: Progressing Goal: Nutritional status is improving Outcome: Progressing Problem: Urinary Incontinence Goal: Perineal skin integrity is maintained or improved Outcome: Progressing [facility] 12-04-2024 Telephone encounter Note Spoke with nurse Inman at [facility]. Informed her of recommendations to increase LCM to 150mg BID, with read back. Nurse requests rx to be faxed to the facility. [facility] PH: [phone] FAX : [phone] Silvia Rogers RN [facility] 12-04-2024 Telephone encounter Note Called the patient's facility. Left message for the nurse to call back regarding recommendations. Silvia Rogers, RN [facility] 12-04-2024 Note Formatting of this n ote might be different from the original. Pt discussed 12-04-24 during interdisciplinary rounds. Pt admitted from [facility] due to seizures. Pt has a history of seizure disorder. No needs anticipated but SW available as needs arise. [facility] [employer] 12-04-2024 Note Formatting of this n ote might be different from the original. Pt discussed 12-04-24 during interdisciplinary rounds. Pt admitted from [facility] due to seizures. Pt has a history of seizure disorder. No needs anticipated but SW available as needs arise. [employer] 12-04-2024 Note OCCUPATIONAL THERAPY [facility] Initial Evaluation Name/MRN: Katheryn Chino ([id number]) Evaluation Date: 12/04/2024 Date of : 1945 [...] 01/27/2020 Peptic ulcer disease 01/27/2020 Seizure disorder ([facility]) 01/27/2020 Past Surgical History: No past surgical history on file. Admission Diagnosis: Patient Active Problem List Diagnosis Date Noted Sepsis due to urinary tract infection ([facility]) 12/03/2024 Obesity, Class I, BMI 30-34.9 08/18/2024 Breakthrough seizure ([facility]) ([facility]) 08/17/2024 Dysarthria 08/07/2018 Ataxia 08/07/2018 Depression 10/26/2020 Cerebellar degeneration ([facility]) ([facility]) 10/26/2020 Other specified hypothyroidism 01/27/2020 Seizure disorder ([facility]) ([facility]) 01/27/2020 Peptic ulcer disease 01/27/2020 [...] AxOx self and hospital Social/Functional History From [facility] and has been there for 11.5 years. [...] all intact. Prevention Measures in place, including: Wayne sheet with pillows, Foam heel protectors (obtained [...] or concerns. Aliza Goins RN, BSN, CWCN [facility] 12-04-2024 Nurse Note Wound Care consulted for Pressure Injury Prevention. Pt's Melo score= 16 on 12/04 Pt's pressure points assessed. Pt sitting in chair. OT present in room and assisted pt with standing for assessment of buttocks/coccyx. Pt's Heels, Buttocks/coccyx, Back, Elbows, Occiput and ears all intact. Prevention Measures in place, including: [place] sheet with pillows, Foam heel protectors (obtained [...] RN, BSN, CWCN documented in this encounter [facility] 12-04-2024 Note PHYSICAL THERAPY [facility] Initial Evaluation Name/MRN: Katheryn Chino ([id number]) Evaluation Date: 12/04/2024 Date of : 1945 [...] [facility] Plan is to return to [facility]. Admitting Diagnosis: Sepsis due to UTI, [...] 01/27/2020 Peptic ulcer disease 01/27/2020 Seizure disorder ([facility]) 01/27/2020 Past Surgical History: No past surgical history on file. Admission Diagnosis: Patient Active Problem List Diagnosis Date Noted Sepsis due to urinary tract infection ([facility]) 12/03/2024 Obesity, Class I, BMI 30-34.9 08/18/2024 Breakthrough seizure ([facility]) ([facility]) 08/17/2024 Dysarthria 08/07/2018 Ataxia 08/07/2018 Depression 10/26/2020 Cerebellar degeneration ([facility]) ([facility]) 10/26/2020 Other specified hypothyroidism 01/27/2020 Seizure disorder ([facility]) ([facility]) 01/27/2020 Peptic ulcer disease 01/27/2020 [...] issues noted Hearing: normal Social/Functional History From [facility] and has been there for 11.5 [...] self corrected. Standing balance poor+ (2/10 Modified [place]) Bed Mobility: Supine to sit: Min Assist [...] Raw Score (No Stairs) : 11 JH-HLM -HLM Score: Transferred to chair/commode Plan Pt would [...] Katheryn Chino Date of : 1945 Acct: [id number] PCP: Orville Mendoza DO Date of Admission: 12/03/2024 Date of Service: Pt seen/examined on 12/04/24 Chief Complaint: Breakthrough seizure History Of Present Illness: 79 y.o. female with past medical history significant for idiopathic generalized epilepsy (since childhood), cerebellar atrophy (on MRI in 2018, thought to be 2/2 chronic Dilantin use), wheelchair dependence, chronic dysarthria, hypothyroidism who presented from [facility] to [facility] 12/03 with complaint of breakthrough seizure. Patient follows with Dr. Jimenez from [facility] and has been having generalized tonic-clonic seizures and absence seizures since age [age]. Current AED regimen is supposed to be VPA 250mg TID, LCM 100mg BID, and ethosuximide 250mg BID. The patient is not able to provide any history from yesterday and denies any complaints at present. Per history obtained from RN at [facility] who witnessed event, it occurred yesterday morning [...] antibiotics. Social History: The patient currently lives SNF Occupation None Drives: No TOBACCO: reports that [...] habits (RN from [facility] does report episode of emesis two days [...] at endpoints Left: Mild ataxia at endpoints Syyb-Mtpn-Ogqp Right: normal Left: normal Rapid Alternating Movements Right: reduced speed Left: reduced speed Radiology: (personally reviewed) No head imaging done ASSESSMENT/PLAN: Summary: Patient is a 79 year old female with pertinent medical history of idiopathic epilepsy (since childhood) and cerebellar atrophy who presented to [facility] on 12/03 following witnessed seizure at [...] have been done at OSH or at [facility]. - Infectious work-up and treatment per primary team. Suspect seizure occurred either due to lowered seizure threshold 11/16 infection vs medication non-adherence. - Check LCM level and free valproic acid level - Recommend the following AED regimen: - ethosuximide 250mg BID (outpatient dose) - VPA 500mg BID (discrepancy between last outpatient neurology note and MAR from [facility], so will average the two) - LCM continue 100mg qAM and increase nightly dose to 150mg - Will discontinue phenytoin as patient had stopped this medication as outpatient - Will need repeat AED levels in one week. Already established with neurology through [facility], so can follow-up with them as outpatient. [...] tremors sensation: intact to light touch cerebellar: fwiuhu-[id number]-[id number] slow but intact gait: deferred secondary to [...] known history of generalized epilepsy-EEG unlikely to plant changer at this time -Some confusion about [...] or meningismus -Will continue to monitor for PERSONNEL RECORDS CLERK infectious symptoms I spent total time 80 minutes reviewing previous notes, test results, and face to face with the patient discussing the diagnosis and importance of compliance with the treatment plan as well as documenting on the day of the visit. [facility] 12-04-2024 Consult note Associated Order (s): IP CONSULT TO NEUROLOGY General Neurology Consult Patient: Katheryn Chino Date of : 1945 Acct: [id number] PCP: Orville Mendoza DO Date of Admission: 12/03/2024 Date of Service: Pt seen/examined on 12/04/24 Chief Complaint: Breakthrough seizure History Of Present Illness: 79 y.o. female with past medical history significant for idiopathic generalized epilepsy (since childhood), cerebellar atrophy (on MRI in 2018, thought to be 2/2 chronic Dilantin use), wheelchair dependence, chronic dysarthria, hypothyroidism who presented from [facility] to [facility] 12/03 with complaint of breakthrough seizure. Patient follows with Dr. Jimenez from [facility] and has been having generalized tonic-clonic seizures and absence seizures since age [age]. Current AED regimen is supposed to be VPA 250mg TID, LCM 100mg BID, and ethosuximide 250mg BID. The patient is not able to provide any history from yesterday and denies any complaints at present. Per history obtained from RN at [facility] who witnessed event, it occurred yesterday morning [...] patient currently lives [facility] Occupation None Drives: No TOBACCO: reports that [...] habits (RN from [facility] does report episode of emesis two days [...] at endpoints Left: Mild ataxia at endpoints Qent-Htpf-Vpsa Right: normal Left: normal Rapid Alternating Movements Right: reduced speed Left: reduced speed Radiology: (personally reviewed) No head imaging done ASSESSMENT/PLAN: Summary: Patient is a 79 year old female with pertinent medical history of idiopathic epilepsy (since childhood) and cerebellar atrophy who presented to [facility] on 12/03 following witnessed seizure at [...] have been done at OSH or at [facility]. - Infectious work-up and treatment per primary team. Suspect seizure occurred either due to lowered seizure threshold 2/2 infection vs medication non-adherence. - Check LCM level and free valproic acid level - Recommend the following AED regimen: - ethosuximide 250mg BID (outpatient dose) - VPA 500mg BID (discrepancy between last outpatient neurology note and MAR from [facility], so will average the two) - LCM continue 100mg qAM and increase nightly dose to 150mg - Will discontinue phenytoin as patient had stopped this medication as outpatient - Will need repeat AED levels in one week. Already established with neurology through [facility], so can follow-up with them as outpatient. [...] cognitive impairment, chronic dysarthria, hypothyroidism presents from [facility] with breakthrough seizure in the setting of [...] tremors sensation: intact to light touch cerebellar: [id number]-ct-mpxi slow but intact gait: deferred secondary to [...] known history of generalized epilepsy-EEG unlikely to plant changer at this time -Some confusion about [...] or meningismus -Will continue to monitor for PERSONNEL RECORDS CLERK infectious symptoms I spent total time 80 minutes reviewing previous notes, test results, and face to face with the patient discussing the diagnosis and importance of compliance with the treatment plan as well as documenting on the day of the visit. documented in this encounter [facility] 12-04-2024 History and physical note Attending History and Physical Admit Date: 12/03/2024 PCP: Orville Mendoza DO CHIEF COMPLAINT: Breakthrough seizure Reason for Admission: Sepsis criteria 2/2 UTI as suspected source History Obtained From: patient HISTORY OF PRESENT ILLNESS: Katheryn is a 79 y.o. female with past medical history below who presents with chief complaint listed above. Presenting from [place] for breakthrough seizure, Was found to meet [...] Insecurity: No Food Insecurity (08/18/2024) Received from [facility] Hunger Vital Sign Worried About Running Out of Food in the Last Year: Never true Ran Out of Food in the Last Year: Never true Transportation Needs: No Transportation Needs (08/18/2024) Received from [facility] PRAPARE - Transportation Lack of Transportation (Medical): No Lack of Transportation (Non-Medical): No Physical Activity: Not on file Stress: Not on file Social Connections: Not on file Intimate Partner Violence: Not on file Housing Stability: Low Risk (08/18/2024) Received from [facility] Housing Stability Vital Sign Unable to Pay [...] Emergency Contact: Danny Chino Mobile Relation: Brother Jukebox Coin Collector needed? No Fazal Garza MD Division of Hospital Medicine Inpatient Medical Services/[facility] 12-04-2024 Note Attending History an d Physical Admit Date: 12/03/2024 PCP: Orville Mendoza DO CHIEF COMPLAINT: Breakthrough seizure Reason for Admission: Sepsis criteria 2/2 UTI as suspected source History Obtained From: patient HISTORY OF PRESENT ILLNESS: Katheryn is a 79 y.o. female with past medical history below who presents with chief complaint listed above. Presenting from [place] for breakthrough seizure, Was found to meet [...] Insecurity: No Food Insecurity (08/18/2024) Received from [facility] Hunger Vital Sign Worried About Running Out of Food in the Last Year: Never true Ran Out of Food in the Last Year: Never true Transportation Needs: No Transportation Needs (08/18/2024) Received from [facility] PRAPARE - Transportation Lack of Transportation (Medical): No Lack of Transportation (Non-Medical): No Physical Activity: Not on file Stress: Not on file Social Connections: Not on file Intimate Partner Violence: Not on file Housing Stability: Low Risk (08/18/2024) Received from [facility] Housing Stability Vital Sign Unable to Pay [...] with chief complaint listed above. Presenting from [place] for breakthrough seizure, Was found to meet [...] Insecurity: No Food Insecurity (08/18/2024) Received from [facility] Hunger Vital Sign Worried About Running Out of Food in the Last Year: Never true Ran Out of Food in the Last Year: Never true Transportation Needs: No Transportation Needs (08/18/2024) Received from [facility] PRAPARE - Transportation Lack of Transportation (Medical): No Lack of Transportation (Non-Medical): No Physical Activity: Not on file Stress: Not on file Social Connections: Not on file Intimate Partner Violence: Not on file Housing Stability: Low Risk (08/18/2024) Received from [facility] Housing Stability Vital Sign Unable to Pay [...] Emergency Contact: Danny Chino Mobile Relation: Brother Jukebox Coin Collector needed? No Fazal Garza MD Division of Hospital Medicine Inpatient Medical Services/[facility] documented in this encounter [facility] 12-03-2024 Emergency department Note Emergency Department Encounter [facility] EMERGENCY DEPT Patient: Katheryn Chino : [...] the emergency department as a transfer from [place] for breakthrough seizure. Patient reports she has [...] dictating provider for clarification.) Miriam Hennessy DO [facility] Miriam Hennessy DO 12/04/24 0003 EMERGENCY DEPARTMENT ENCOUNTER Pt Name: Katheryn Chino Birthdate 1945 Date of evaluation: 12/03/2024 ED Provider: Rancho Diamond PA-C CHIEF COMPLAINT Chief Complaint Patient presents with Seizures [place] transfer. Pt from [facility] SNF for 38 minute witnessed seizure [...] the seizure. They did take her to [facility] where she was supposedly observed there [...] Insecurity: No Food Insecurity (08/18/2024) Received from [facility] Hunger Vital Sign Worried About Running Out of Food in the Last Year: Never true Ran Out of Food in the Last Year: Never true Transportation Needs: No Transportation Needs (08/18/2024) Received from [facility] PRAPARE - Transportation Lack of Transportation (Medical): No Lack of Transportation (Non-Medical): No Housing Stability: Low Risk (08/18/2024) Received from [facility] Housing Stability Vital Sign Unable to Pay for Housing in the Last Year: No Number of Times Moved in the Last Year: 0 Homeless in the Last Year: No SCREENINGS Tiny Coma Scale Best Eye Response: Spontaneous Best Verbal Response: Confused Best Motor Response: Follows commands Flora Coma Scale Score: 14 PHYSICAL EXAM ED [...] XII are grossly intact. Normal finger-nose and zppp-pk-xkwf. Speech is clear and appropriate. Normal level [...] Culture. Procedure Abnormality Status --------- ------ Complete Urinalysis[[id number]] Abnormal Final result Please view results for these tests on the individual orders. All other labs were within normal range or not returned as of this dictation. EMERGENCY DEPARTMENT COURSE and DIFFERENTIAL DIAGNOSIS/MDM: Vitals: Vitals: 12/03/24 1839 12/03/24 1942 12/03/24202312/03/24 2210 BP: 121/60 [...] Septic Shock. No data found. Recent Labs 12/03/24 1940 WBC 10.9* LACTATE 1.6 CREATININE 0.82 BILITOT [...] Emergency Medicine Provider Rancho Diamond PA-C 12/03/24 4078 Cosigned by Miriam Hennessy DO at 12/04/2024 12:54 AM EST documented in this encounter [facility] 12-03-2024 Physician Emergency department Note Emergency Department Encounter [facility] EMERGENCY DEPT Patient: Katheryn Chino : [...] the emergency department as a transfer from [place] for breakthrough seizure. Patient reports she has [...] for clarification.) Miriam Hennessy DO Acute Care [facility] Miriam Hennessy DO 12/04/24 0003 [employer] Phone: 12-03-2024 Physician Emergency department Note EMERGENCY DEPARTMENT ENCOUNTER Pt Name: Katheryn Chino Birthdate 1945 Date of evaluation: 12/03/2024 ED Provider: Rancho Diamond PA-C CHIEF COMPLAINT Chief Complaint Patient presents with Seizures Amparo transfer. Pt from [facility] for 38 minute witnessed seizure [...] the seizure. They did take her to [facility] where she was supposedly observed there [...] Insecurity: No Food Insecurity (08/18/2024) Received from [facility] Hunger Vital Sign Worried About Running Out of Food in the Last Year: Never true Ran Out of Food in the Last Year: Never true Transportation Needs: No Transportation Needs (08/18/2024) Received from [facility] PRAPARE - Transportation Lack of Transportation (Medical): No Lack of Transportation (Non-Medical): No Housing Stability: Low Risk (08/18/2024) Received from [facility] Housing Stability Vital Sign Unable to Pay for Housing in the Last Year: No Number of Times Moved in the Last Year: 0 Homeless in the Last Year: No SCREENINGS Flora Coma Scale Best Eye Response: Spontaneous Best Verbal Response: Confused Best Motor Response: Follows commands Flora Coma Scale Score: 14 PHYSICAL EXAM ED [...] XII are grossly intact. Normal finger-nose and yrqr-bd-heuh. Speech is clear and appropriate. Normal level [...] Culture. Procedure Abnormality Status --------- ------ Complete Urinalysis[[id number]] Abnormal Final result Please view results for these tests on the individual orders. All other labs were within normal range or not returned as of this dictation. EMERGENCY DEPARTMENT COURSE and DIFFERENTIAL DIAGNOSIS/MDM: Vitals: Vitals: 12/03/24 1839 12/03/24 1942 12/03/24202312/03/24 2210 BP: 121/60 [...] or septic shock (If yes use ".sepsiscoremeasure"): SEP- CORE MEASURE DATA SIRS Criteria Sepsis Criteria [...] Emergency Medicine Provider Rancho Diamond PA-C 12/03/24 4935 Cosigned by Miriam Hennessy DO at 12/04/2024 12:54 AM EST [facility] 12-03-2024 Telephone encounter Note If no clear triggers will likely need to adjust doses. Would consider further increasing LCM to 150 mg BID Artis Hamilton APRN.ICT SALES ASSISTANT [facility] 12-03-2024 Telephone encounter Note Seizure Call - spoke with nurse Inman. [facility] PH: [phone] FAX : [phone] Last Visit: 09/24/24 Next Visit: 01/15/25 Date [...] Other: patient was taken to local ED, [facility]. The patient will be transferred to [...] to MARIO 2 pool Silvia Rogers RN [facility] 12-03-2024 Telephone encounter Note Received patients seizure monitoring sheet from [facility]. Uploaded to [facility] 12-02-2024 Telephone encounter Note Spoke with nurse Rosita from patient's facility. Informed her of message per Dr. Jimenez with read back. Informed her rheumatology consult was faxed along with DEXA scan report. Consult and DEXA report faxed via [employer] to: [facility] PH: [phone] FAX : [phone] Confirmation received. Silvia Rogers RN [facility] 12-02-2024 Miscellaneous Notes Spoke with nurse Rosita from patient's facility. Informed her of message per Dr. Jimenez with read back. Informed her rheumatology consult was faxed along with DEXA scan report. Consult and DEXA report faxed via [employer]ax to: [facility] PH: [phone] FAX : [phone] Confirmation received. Silvia Rogers RN Per Dr. Jimenez, This patient's bone scan showed osteoporosis. I placed a consult to Rheumatology to manage this. Can you please let the patient know. Thanks KMOniel ==== Silvia Rogers RN documented in this encounter [facility] 12-01-2024 Telephone encounter Note Per Dr. Jiemnez, This patient's bone scan showed osteoporosis. I placed a consult to Rheumatology to manage this. Can you please let the patient know. Thanks KMG ==== Silvia Rogers RN [facility] 12-01-2024 Telephone encounter Note Provider referred patient to rheumatology. I placed into protal under ref# [id number] [facility] Work Phone: 12-01-2024 Miscellaneous Notes Provider referred patient to rheumatology. I placed into protal under ref# [id number] documented in this encounter [facility] 11-26-2024 History of Present illness Narrative Radiology [...] PATIENT PRESENTS WITH AN IMPLANTABLE OR ATTACHED CHAR FILTER OPERATOR: No RADIOLOGY DEPARTMENT: Bone Density PERIPHERAL IV DATA: Not applicable SIGNED BY: RT Nancy(R) November 26, 2024 11:04 AM documented in this encounter [facility] 11-26-2024 Note HNO ID: [id number] Author: KATIA HARRISON RT(R) Service: Radiology Author [...] PATIENT PRESENTS WITH AN IMPLANTABLE OR ATTACHED CHAR FILTER OPERATOR: No RADIOLOGY DEPARTMENT: Bone Density PERIPHERAL IV DATA: Not applicable SIGNED BY: KENDAL Cruz) November 26, 2024 11:04 AM [facility] 11-11-2024 Telephone encounter Note The following [...] spray 2 Each 0 Sig: Use 1 Pitcher in the nose as needed for seizures lasting longer than 3 minutes for up to 90 days. May repeat dose in alternate nostril after 10 minutes based on response and tolerability. Authorizing Provider: ARTIS HAMILTON APRN.CNP [facility] 11-11-2024 Miscellaneous Notes The following approved medication [...] spray 2 Each 0 Sig: Use 1 Pitcher in the nose as needed for seizures lasting longer than 3 minutes for up to 90 days. May repeat dose in alternate nostril after 10 minutes based on response and tolerability. Authorizing Provider: ARTIS HAMILTON APRN.CNP Prescription request for alternate pharmacy. Prescriptions sent to [facility] / Please re-send to [facility] for all 3 medications Prescription Refill: Requested by: Rosita @ [facility] Please E-Scribe Caller Contact Number: [phone] Pharmacy Name: [facility] [place], [place] Pharmacy Number: [phone] Generic/ brand: generic 30 or 90 day supply requested: 90 Last appointment: 09/24/2024 Next Appointment: none Patient of Dr. Erin Chino [id number] [place] [address] documented in this encounter [facility] 11-11-2024 Telephone encounter Note Prescription request for alternate pharmacy. Prescriptions sent to [facility] / Please re-send to [facility] for all 3 medications Prescription Refill: Requested by: Rosita @ [facility] Please E-Joanie Caller Contact Number: [phone] Pharmacy Name: [facility] - [place], [place] Pharmacy Number: [phone] Generic/ brand: generic 30 or 90 day supply requested: 90 Last appointment: 09/24/2024 Next Appointment: none Patient of Dr. Erin Chino [id number] [facility] [address] [facility] 11-11-2024 Telephone encounter Note Noted. Spoke with nurse Gisella, recommendations provided per MARIO. Letter, copies of LCM, Nayzilam spray faxed to facility. See 11/10/24 phone encounter. Silvia Rogers RN [facility] 11-11-2024 Miscellaneous Notes Noted. Spoke with nurse Gisella, recommendations provided per MARIO. Letter, copies of LCM, Nayzilam spray faxed to facility. See 11/10/24 phone encounter. Silvia Rogers RN Received Seizure monitoring report from [facility]. Uploaded to [facility]. documented in this encounter [facility] 11-11-2024 Telephone encounter Note Re[facility]iz[facility] Uploaded to [facility]. [facility] 11-11-2024 Telephone encounter Note The following approved medication requests have been transmitted electronically. Requested Prescriptions Signed Prescriptions Disp Refills midazolam (NAYZILAM) 5 mg/spray (0.1 mL) nasal spray 2 Each 0 Sig: Use 1 Pitcher in the nose as needed for seizures [...] for 180 days. Authorizing Provider: ARTIS HAMILTON APRN.ICT SALES ASSISTANT [facility] 11-11-2024 Miscellaneous Notes The following approved medication requests have been transmitted electronically. Requested Prescriptions Signed Prescriptions Disp Refills midazolam (NAYZILAM) 5 mg/spray (0.1 mL) nasal spray 2 Each 0 Sig: Use 1 Pitcher in the nose as needed for seizures [...] for 180 days. Authorizing Provider: ARTIS HAMILTON APRN.ICT SALES ASSISTANT Spoke with nurse, Gisella. Informed of recommendations, gave verbal of rx LCM titration, PHT wean with read back. She is requesting copy of rx sent to their facility. Silvia Rogers, RN Script for Nayzilam sent. Would consider starting Vimpat with goal of weaning off PHT since she reaches goal dose. If they are in agreement can provide titration. Wk 1: LCM 50 mg at bedtime/ PHT 100 mg BID Wk 2: LCM 50 mg bid Wk 3: LCM 50/10, decrease PHT to 100 mg QHS Wk 4: LCM 100/100, stop PHT Artis Hamilton APRN.ICT SALES ASSISTANT [facility] 09/24/24 IMPRESSION: Ms.Patricia Chino is a [...] rescue medication, nurse is requesting. Forwarded to [employer] for review. Silvia Rogers, RN Seizure activity: Name of Caller : Dimitri Becker [place] where pt resides Relationship to patient: Caregiver Contact phone number: [phone] Date of seizure: 11/07/24 Duration: 20 minutes Back to Baseline (Yes/No): yes Emergency treatment needed (Yes/No): no Patient of Dr. Jimenez documented in this encounter [facility] 11-10-2024 Telephone encounter Note Spoke with nurse, Gisella. Informed of recommendations, gave verbal of rx LCM titration, PHT wean with read back. She is requesting copy of rx sent to their facility. Silvia Rogers RN [facility] 11-10-2024 Telephone encounter Note Script for Nayzilam [...] 4: LCM 100/100, stop PHT Artis Hamilton APRN.ICT SALES ASSISTANT [facility] 11-10-2024 Telephone encounter Note See 11/10/24 phone encounter. Silvia Rogers RN [facility] 11-10-2024 Miscellaneous Notes See 11/10/24 phone encounter. Silvia Rogers RN General call : Full name of person calling: [facility] room Relationship to patient: Phone # : Reason for call: seizure monitoring report Patient of Dr. Jimenez upload documented in this encounter [facility] 11-10-2024 Telephone encounter Note [facility] 09/24/24 IMPRESSION: Ms.Patricia Chino is a 79-year-old [...] rescue medication, nurse is requesting. Forwarded to [employer] for review. Silvia Rogers RN [facility] 11-10-2024 Telephone encounter Note Seizure activity: Name of Caller : Dimitri Becker [place] where pt resides Relationship to patient: Caregiver Contact phone number: [phone] Date of seizure: 11/07/24 Duration: 20 minutes Back to Baseline (Yes/No): yes Emergency treatment needed (Yes/No): no Patient of Dr. Jimenez [facility] 11-07-2024 Telephone encounter Note General call : Full name of person calling: [facility] Relationship to patient: Phone # : Reason for call: seizure monitoring report Patient of Dr. Jimenez upload [facility] 09-26-2024 Telephone encounter Note Spoke with Taryn, patient's nurse - provided medication recommendations - she verbalizes understanding via teachback Sherrell Bojorquez RN [facility] Work Phone: 09-26-2024 Miscellaneous Notes Spoke with Taryn, patient's nurse - provided medication recommendations - she verbalizes understanding via teachback Sherrell Bojorquez RN Levels reviewed, VPA still mildly elevated- would decrease dose to 500 mg TID. Can continue other doses unchanged Artis Hamilton APRN.DWAYNE Images from the original note were not included. Per patient's nurse, Katia - recent labs are trough No ETH level completed Current ASMs: PHT 100 mg BID VPA 750 mg TID ETH 250 mg BID Forwarded to [facility] [place] for review/recommendation Sherrell Bojorquez RN Per [facility] of 09/24/2024 w/Dr. Jimenez The doses listed on facility paperwork are different than what was listed on discharge summary at [facility]. Called the facility and confirmed [...] to Vimpat, zonisamide. documented in this encounter [facility] 09-26-2024 Telephone encounter Note Levels reviewed, VPA still mildly elevated- would decrease dose to 500 mg TID. Can continue other doses unchanged Artis Hamilton APRN.ICT SALES ASSISTANT [facility] 09-26-2024 Telephone encounter Note Images from the original note were not included. Per patient's nurse, Katia - recent labs are trough No ETH level completed Current ASMs: PHT 100 mg BID VPA 750 mg TID ETH 250 mg BID Forwarded to [facility] [place] for review/recommendation Sherrell Bojorquez RN Per MALCOLM of 09/24/2024 w/Dr. Jimenez The doses listed on facility paperwork are different than what was listed on discharge summary at [facility]. Called the facility and confirmed [...] Future options: Switch Dilantin to Vimpat, zonisamide. [facility] 09-24-2024 Note HNO ID: [id number] Author: JAYANT JIMENEZ MD Service: ? Author Type: Physician Type: Progress Notes Filed: 09/24/2024 11:19 Note Text: [facility] Patient Name: Katheryn GARCIA Date of : 1945 INITIAL EPILEPSY CLINIC NOTE 09/24/2024 8:00 AM CHIEF COMPLAINT: New Patient and Epilepsy HISTORY OF PRESENT ILLNESS Ms. Chino is a 79 year old female seen in [facility] for initial consultation. [...] with AEDs . She moved to a [place] and she has more suervison with AEDs [...] it lasted ~ 25 mins). Admitted to [facility] where Dilantin and Depakote levels were low. Doses were adjusted- PHT 100 mg TID and VPA 1000 mg TID. Zarontin was continued at 250 mg BID. Interval Seizure History The doses listed on facility paperwork are different than what was listed on discharge summary at [facility]. 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 Alumin (more content not included)... [facility] 09-24-2024 History of Present illness Narrative [facility] Patient Name: Katheryn GARCIA Date of : 1945 INITIAL EPILEPSY CLINIC NOTE 09/24/2024 8:00 AM CHIEF COMPLAINT: New Patient and Epilepsy HISTORY OF PRESENT ILLNESS Ms. Chino is a 79 year old female seen in [facility] for initial consultation. [...] with AEDs . She moved to a [place] and she has more suervison with AEDs [...] it lasted ~ 25 mins). Admitted to [facility] where Dilantin and Depakote levels were low. 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 -Vocation: -Education: -Cigarette, [...] impaired coordination greater on the right on [id number]-yk-tckn testing Postural and action tremor in both upper extremities Gait Wheelchair-bound IMPRESSION: Ms.Katheryn Gossard is a 79-year-old right-handed woman with history [...] precautions - No driving in the state [facility] until seizure free for 6 months. [...] which included: preparing to see the patient [id number] patient care completing clinical documentation obtaining and/or reviewing separately obtained history performing a medically appropriate examination counseling and educating the patient/family/caregiver ordering medications, tests, or procedures Jayant Jimenez MD cc: Primary Care Physician: Orville Mendoza, DO [address] [id number] Referring: Patient: Ms. Katheryn Chino [id number] [id number] documented in this encounter [facility] 09-24-2024 Instructions Jayant Jimenez MD - 09/24/2024 8:56 AM EST Summary of the things we discussed today: We will check blood level of your seizure medications as well as Ammonia (needs to be done at [facility]) I will order a bone scan called DEXA to see if you have suffered osteoporosis due to [facility] use of seizure medications. Reduce the morning [...] precautions - No driving in the state [facility] until seizure free for 6 months. [...] factor. Jayant Jimenez MD Associate Staff, Epilepsy [facility] September 24, 2024 Office phone: [phone] BONE MINERAL DENSITY PATIENT INSTRUCTIONS ======= Bone [...] usual activities immediately. documented in this encounter [facility] 09-22-2024 Telephone encounter Note See 09/05/24 phone encounter PHT 21.9 Range 10 - 20 Taking PHT 100 mg BID Silvia Rogers RN [facility] 09-22-2024 Miscellaneous Notes See 09/05/24 phone encounter PHT 21.9 Range 10 - 20 Taking PHT 100 mg BID Silvia Rogers RN OUTSIDE LAB REPORT FACILITY NAME: [facility] PHONE/FAX: [phone] / [phone] COLLECTION DATE AND TIME: 09/19/2024 - 06:15 Uploaded to [facility] documented in this encounter [facility] 09-19-2024 Telephone encounter Note OUTSIDE LAB REPORT FACILITY NAME: [facility] PHONE/FAX: [phone] / [phone] COLLECTION DATE AND TIME: 09/19/2024 - 06:15 Uploaded to [facility] 09-05-2024 Telephone encounter Note Spoke with nurse Renae, [facility] - provided recommendation/she verbalizes understanding. Sherrell Bojorquez RN [facility] Work Phone: 09-05-2024 Miscellaneous Notes Spoke with nurse Renae [facility] - provided recommendation/she verbalizes understanding. Sherrell Bojorquez RN Pt can continue current doses. Artis Hamilton APRN.DWAYNE Images from the original note were not included. Patient update per nurse Renae [facility]: - Last known seizure: 08/17/2024 - [...] trough NOV: 09/24/2024 w/Dr. Jimenez Forwarded to [facility] [employer] [place] for review Sherrell Bojorquez RN Per neurology [...] the same. -F/U Epilepsy as outpatient. Called [facility] - left message for nursing staff to contact office Sherrell Bojorquez RN Form received: From (agency / facility / parent): [facility] personnel counselor (if given): Brea Malloy RN Phone #: [phone] Fax # : [phone] Email: n/a Information requested: Review Labs Collected 09/05/2024 - 05:30 for Valproic Acid and Dilantin and approval for medication dosages Patient of Dr. Jimenez Forwarded to nurse. Also uploaded to [facility]. documented in this encounter [facility] 09-05-2024 Telephone encounter Note Pt can continue current doses. Artis Hamilton APRN.DWAYNE [facility] Work Phone: 09-05-2024 Telephone encounter Note Images from the original note were not included. Patient update per nurse Renae, [facility] Home: - Last known seizure: 08/17/2024 [...] trough NOV: 09/24/2024 w/Dr. Jimenez Forwarded to [facility] [place] for review Sherrell Bojorquez RN Per neurology [...] Continue the same. -F/U Epilepsy as outpatient. [facility] 09-05-2024 Telephone encounter Note Called [facility] - left message for nursing staff to contact office Sherrell Bojorquez RN [facility] 09-05-2024 Telephone encounter Note Form received: From (agency / facility / parent): [facility] personnel counselor (if given): Brea Malloy RN Phone #: [phone] Fax # : [phone] Email: n/a Information requested: Review Labs Collected 09/05/2024 - 05:30 for Valproic Acid and Dilantin and approval for medication dosages Patient of Dr. Jimenez Forwarded to nurse. Also uploaded to [facility]. [facility] 08-29-2024 Telephone encounter Note Spoke with nurse Mireille at facility. Informed to continue with current asm dose. Silvia Rogers RN [facility] 08-29-2024 Miscellaneous Notes Spoke with nurse Mireille at facility. Informed to continue with current asm dose. Silvia Rogers RN Level reviewed - pt should continue current dose Artis Hamilton APRN.ICT SALES ASSISTANT Spoke with Mima no further seizures to report and no side effect or medication issues to report. She is doing fine at this time. routed for review Sandra Casey RN Mima of [facility] returning Nurse call. Please call [phone] VPA: 08/27/2024 at 04:55 104: (? to 100) VAP 1000 mg: TID (was increased from 750 mg during recent hospitalization). Previous level ws 94 on 08/06/2024 ======== 08/17/2024 to 08/20/2024 [facility] ======== was patient of Dr. Pereira's last seen 09/01/[address] Jimenez on 09/24/2024: new consult ========= Call placed to [facility] [phone] Jimenez's number given to call back Sandra Casey RN OUTSIDE LAB REPORT FACILITY NAME [facility] PHONE/FAX COLLECTION DATE AND TIME: 08/26/24 0456 Uploaded to [facility] Pt scheduled for N/C w/ Dr. Jimenez documented in this encounter [facility] 08-29-2024 Telephone encounter Note Level reviewed - pt should continue current dose Artis Hamilton APRN.ICT SALES ASSISTANT [facility] Work Phone: 08-29-2024 Telephone encounter Note Spoke with Mima no further seizures to report and no side effect or medication issues to report. She is doing fine at this time. routed for review Sandra Casey RN [facility] 08-29-2024 Telephone encounter Note [facility] of [facility] returning Nurse call. Please call [phone] [facility] 08-28-2024 Telephone encounter Note VPA: 08/27/2024 at 04:55 104: (? to 100) VAP 1000 mg: TID (was increased from 750 mg during recent hospitalization). Previous level ws 94 on 08/06/2024 ======== 08/17/2024 to 08/20/2024 [facility] ======== was patient of Dr. Pereira's last seen 09/01/[address] Jimenez on 09/24/2024: new consult ========= Call placed to [facility] [phone] Jimenez's number given to call back Sandra Casey RN [facility] 08-27-2024 Telephone encounter Note OUTSIDE LAB REPORT FACILITY NAME [facility] PHONE/FAX COLLECTION DATE AND TIME: 08/26/24 0455 Uploaded to [facility] Pt scheduled for N/C w/ Dr. Jimenez [facility] 08-20-2024 Note HNO ID: [id number] Author: NO BENNETT RPh Service: Pharmacy Author [...] list. Pt to be [facility] to [facility], AEDs adjusted as recommended per neurology: -Phenytoin 100 mg TID -Valproic acid 1000 mg TID -Ethosuximide 250 mg BID No additional recommendations. No Bennett [facility] Pager: [phone] 08/20/2024 11:36 AM Medication List START taking [...] 250 mg capsule Commonly known as: DEPAKENE [facility] 08-20-2024 Note HNO ID: [id number] Author: LOLITA SALAZAR RN Service: Care Management Author Type: Registered Nurse Type: Care Mgt Progress Note Filed: 08/20/2024 11:33 Note Text: CARE MANAGEMENT DISCHARGE NOTE SERVICE DATE: August 20, 2024 SERVICE TIME: 11:32 AM Admission Date: 08/17/2024 LOS: 3 days Discharge Arrangement Discharge Arrangement: Extended Care Facility Provider Name: Noel Mosley [phone] Caregiver Assessment Caregiver is ready, willing and able to meet the patient's needs as recommended by the inter-professional team: Yes Name of Caregiver: ECF Transportation Arrangements Transportation Arrangements: Ambulance Transportation Agency and Phone #:: [facility] ( [facility] ) [phone] / [phone] Date of Trip: 08/20/24 Time of Trip: 1200 Type of Service: BLS Non-emergency Is Patient Medicaid Pending?: No Was transportation financial coverage discussed with family?: Family Network Cable Installer Location: [facility] Destination: [facility] Financial Care Management Responsibility: None Handoff Communication: Handoff to: Primary Care Physician Primary Care Physician Name/Phone: Orville Mendoza DO, Additional Information: Discharge Information Row Name Admission (Current) from 08/17/2024 in [place] [address] NEURO/CARD Group Home Facility Agency [facility] Pt is being discharged to [facility]. Danny, , updated and agreeable. Discharge instructions sent via [employer]. Discharge packet is on pt's chart. RN report number is [phone]. [facility] scheduled for 08/20 at 12PM. SIGNATURE: Lolita Salazar RN, BSN PATIENT NAME: Katheryn Chino DATE: August 20, 2024 TIME: 11:32 AM CONTACT #: [phone] [facility] 08-19-2024 Note HNO ID: [id number] Author: ROXI MONTILLA RN Service: Nursing Author Type: Registered Nurse Type: Nursing Progress Note Filed: 08/19/2024 18:35 Note Text: Other: tele order d/c and cleaned and placed at the nurses station. [facility] 08-19-2024 Note SARS-COV-2 (AGENT OF COVID-19) RNA: Not detected INFLUENZA A RNA: Not detected INFLUENZA B RNA: Not detected RESPIRATORY SYNCYTIAL VIRUS (RSV) RNA: Not detected [facility] Comment on above: Performed By: #### 9 [id number] ####[facility] [id number] [place] [address] [place] 08-19-2024 Note HNO ID: [id number] Author: LOLITA SALAZAR RN Service: Care Management Author Type: Registered Nurse Type: Care Mgt Progress Note Filed: 08/19/2024 15:11 Note Text: CARE MANAGEMENT PROGRESS NOTE SERVICE DATE: 08/19/2024 SERVICE TIME: 2:43 PM LOS: 2 days Needs Prior to Discharge: Other: See Comment (Medical stability) IMM Follow Up Copy Given: Yes Copy given to:: 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 CM spoke with Roxi ([phone]) at [facility]. Pt is able to return, but referral that was sent through [email or web address] was not received. Referral sent again. [facility] scheduled for 08/19 at 9:30PM. CM updated Roxi regarding transport time, Roxi states they are unable to accept pt back at that time. [facility] rescheduled for 08/20 at 12PM, discharge packet is on pt's chart. Roxi updated and agreeable. Dr. Dominguez and bedside RN updated. QUINN spoke with Dannybrother, updated and agreeable. Update 1510: [facility] and will need PT/OT evals. PT/OT are not ordered, Dr. Dominguez notified of their request. April also requested a COVID test, Dr. Dominguez notified. SIGNATURE: Lolita Salazar, RN, BSN PATIENT NAME: Katheryn Chino DATE: August 19, 2024 TIME: 2:43 PM PAGER/CONTACT #: [phone] [facility] 08-19-2024 Note HNO ID: [id number] Author: CARYL DOMINGUEZ DO Service: Hospital Medicine Author Type: Physician Type: Progress Notes Filed: 08/19/2024 14:58 Note Text: DEPARTMENT OF HOSPITAL MEDICINE PROGRESS NOTE SERVICE DATE: 08/19/2024 SERVICE TIME: 2:35 PM Hospital Medicine/Primary Attending: Caryl Dominguez DO NIGHT AND WEEKEND COVERAGE: EPHRAIM COVERAGE: After 7pm, please call cross cover pager #[phone] Subjective Patient denies complaints, watching the hallmark channel INTERVAL HPI: 79 y/o female with PMHx of Epilepsy who was transfer to [facility] due to breakthrough seizure. Phenytoin and [...] Airways Line Duration Peripheral 08/17/242115 [facility] Short Left Antecubital 20 Gauge 1 [...] VTE Prophylaxis/Anticoagulants 08/17/242229 vte current anticoag therapy (nv,wi) 08/17/242229 activity - mobilize patient ([place]) VTE Prophylaxis: VTE prophylaxis appropriate Disposition: Home Plan of care discussed with: Provider, RN, Patient SIGNATURE: Caryl Dominguez DO PATIENT NAME: Katheryn Chino DATE: August 19, 2024 TIME: 2:35 PM etx [phone] [facility] 08-18-2024 Note HNO ID: [id number] Author: VANESSA LAWSON RN Service: Care Management [...] by: Per Department Practice Potential Transition Plans Group Home Facility/Intermediate Care Facility Advance Directives Current Advance Directive: Health Care Power of Oil Well Engineer In Chart: No Golf Course Superintendent Attempted to Assist with AD Completion: Yes [...] Wheelchair-manual Discharge Planning Patient Goal(s): General wellness [place] of Choice Explained: [place] of Choice Given: Yes Level of Care [...] Arrangements: Ambulance Transportation Agency and Phone #:: [facility] ( [facility] ) [phone] / [phone] Type of Service: BLS Non-emergency Is Patient Medicaid Pending?: No Was transportation financial coverage discussed with family?: [employer] Cable Installer Location: [facility] Destination: [facility] Financial Care Management Responsibility: None Needs Prior to Discharge: Needs Prior to Discharge: To Be Determined Post-Acute Discharge Plan: Spoke with brother Danny via phone. Brother states that he is HCPOA, not on file with [facility]. Patient has been a resident of [facility] for the past 10 years. Return referral sent. +PCP. +Rx. +DME wheelchair bound at baseline. Plan for patient to [facility] to [facility] on discharge. Will need to clarify if patient is bed hold or if precert is needed to return. [facility] transport. CM to follow for transitional care planning. SIGNATURE: Vanessa Lawson RN PATIENT NAME: Katheryn Chino DATE: August 18, 2024 TIME: 2:16 PM CONTACT #: [phone] [facility] 08-18-2024 Note HNO ID: [id number] Author: CARYL DOMINGUEZ DO Service: Hospital Medicine Author Type: Physician Type: Progress Notes Filed: 08/18/2024 16:30 Note Text: DEPARTMENT OF HOSPITAL MEDICINE PROGRESS NOTE SERVICE DATE: 08/18/2024 SERVICE TIME: 2:15 PM Hospital Medicine/Primary Attending: Caryl Dominguez DO NIGHT AND WEEKEND COVERAGE: EPHRAIM COVERAGE: After 7pm, please call cross cover pager #[phone] Subjective INTERVAL HPI: 79 y/o female with PMHx of Epilepsy who was transfer to [facility] due to breakthrough seizure. MEDICATIONS: Reviewed [...] Airways Line Duration Peripheral 08/17/242115 [facility] Short Left Antecubital 20 Gauge <1 [...] VTE Prophylaxis/Anticoagulants 08/17/242229 vte current anticoag therapy ([place]) 08/17/242229 activity - mobilize patient ([place]) VTE Prophylaxis: VTE prophylaxis appropriate Disposition: Home Plan of care discussed with: Provider, RN, Patient SIGNATURE: Caryl Dominguez DO PATIENT NAME: Katheryn Chino DATE: August 18, 2024 TIME: 2:15 PM etx [id number] [facility] 08-17-2024 Telephone encounter Note I received a call from the emergency room at [facility] regarding a patient of Dr. Nava. [...] free 3 years. Visit with epileptologist at [facility] and long EEG are indicated at this time due to rare seizures. Events on 08/17/2024 Patient had a 15-minute seizure in the residential. She had not had any seizures recently. [...] Patient has not been seen in the [facility] system since 2019. At the minimum she needs an evaluation to reassess her epilepsy. Francisco Javier Salazar MD Neurology. (Telemedicine neurologist) [facility] Work Phone: 08-17-2024 Miscellaneous Notes I received a call from the emergency room at [facility] regarding a patient of Dr. Nava. [...] with struggles with dysphasia; her brother is ERNESTINE. EEG report (08/2018) noted This EEG supports [...] free 3 years. Visit with epileptologist at [facility] and long EEG are indicated at this time due to rare seizures. Events on 08/17/2024 Patient had a 15-minute seizure in the residential. She had not had any seizures recently. [...] Patient has not been seen in the [facility] system since 2019. At the minimum she needs an evaluation to reassess her epilepsy. Francisco Javier Salazar MD Neurology. (Telemedicine neurologist) documented in this encounter [facility] 08-10-2023 Miscellaneous Notes Mireille from [facility] called to request medical records for [...] number to call and schedule the appointment. [phone] documented in this encounter [facility] 08-08-2023 Miscellaneous Notes Appears following with Dr. Pereira. Will forward. Duncan Nava MD I did not order labs. Pt needs follow up. Not seen in 3+ years. Duncan Nava MD Fax received from [facility] requesting labs to be reviewed by Dr. Nava and a reply. Pt has not been seen in neurology department since 2019. Please review and advise. Scan on 08/07/2023 11:31 AM by Provider, ANABELL Gonzalez: Outside Labs Roxi Servin LPN documented in this encounter [facility] Evaluation note No assessment inform ation available [facility] Work Phone: Evaluation note Diagnosis Nonintractable generalized idiopathic epilepsy without status epilepticus (HCC)- Primary 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 osteoporosis Special screening for osteoporosis [facility] (current) use of other agents affecting estrogen receptors and estrogen levels Encounter for screening for osteoporosis Special screening for osteoporosis [facility] Diagnosis Intractable epilepsy without status epilepticus, unspecified epilepsy type (HCC) documented in this encounter [facility] note* Diagnosis Intractable epilepsy without status epilepticus, unspecified epilepsy type (HCC)- Primary documented in this encounter [facility] note* Diagnosis Intractable epilepsy without status epilepticus, unspecified epilepsy type (HCC) documented in this encounter [facility] note* Diagnosis 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 osteoporosis Special screening for osteoporosis [facility] (current) use of other agents affecting estrogen receptors and estrogen levels documented in this encounter [facility] note* Diagnosis Osteoporosis without current pathological fracture, unspecified osteoporosis type- Primary documented in this encounter [facility] note* Diagnosis Intractable epilepsy without status epilepticus, unspecified epilepsy type (HCC) documented in this encounter [facility] note* Diagnosis Sepsis due to urinary tract infection (HCC)- Primary Sepsis due to urinary tract infection (HCC) Breakthrough seizure (CMS/HCC) (HCC) Fever, unspecified fever cause documented in this encounter [facility] note* Diagnosis Intractable epilepsy without status epilepticus, unspecified epilepsy type (HCC)- Primary documented in this encounter [facility] note* Diagnosis Intractable epilepsy without status epilepticus, unspecified epilepsy type (HCC) Osteoporosis without current pathological fracture, unspecified osteoporosis type documented in this encounter [facility] note* Diagnosis Intractable epilepsy without status epilepticus, unspecified epilepsy type (HCC)- Primary documented in this encounter [facility] note* Diagnosis Osteoporosis without current pathological fracture, unspecified osteoporosis type- Primary Wheelchair dependent Wheelchair 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) History of long-term treatment with high-risk medication Encounter for long-term (current) use of other medications documented in this encounter [facility] note* Diagnosis Postmenopausal osteoporosis- Primary Senile osteoporosis documented in this encounter [facility] note* Diagnosis Hyperparathyroid (HCC)- Primary Elevated parathyroid hormone Unspecified endocrine disorder documented in this encounter [facility] for referral (narrative)* Diagnostic Procedure Only (Routine) - Authorized Specialty Diagnoses / Procedures Referred By Contsally t Referred To Contact XR IMAGING Diagnoses 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 osteoporosis [facility] (current) use of other agents affecting estrogen receptors and estrogen levels Procedures DXA-AXIAL SKELETON DXA BONE DENSITY STUDY 1/> SITES AXIAL Jayant Villeda MD [address] [place] [address] [place] [id number] Referral ID Status Reason Start Date Expiration Date Visits Requested Visits Authorized [id number] Authorized Auto-Generat ed Referral 10/24/2025 1 1 [facility])No reason for referral information availableWWVUMed[facility] Work Phone: Reason for visit Narrative* Diagnostic Procedure Only (Routine) - Closed Specialty Diagnoses / Procedures Referred By Contac t Referred To Contact XR IMAGING Diagnoses 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 osteoporosis [facility] (current) use of other agents affecting estrogen receptors and estrogen levels Procedures DXA-AXIAL SKELETON DXA BONE DENSITY STUDY SITES AXIAL Jayant Villeda MD [address] [place] [address] Phone: tel: fax: [place] [id number] Referral ID Status Reason Start Date Expiration Date V isits Requested Visits Authorized [id number] Closed Auto-Generate d Referral 09/24/2024 10/24/2025 1 1 [facility] Summary Purpose Family History No Family History Records FoundNo Family History Records FoundNo Family History Records FoundNo Family History Records FoundNo Family History Records FoundNo Family History Records FoundNo Family History Records FoundNo Family History Records Found Advance Directives No Advanced Directives Records Found Advance Directive Response Recorded Date/ Time Name of Medical Power of Oil Well Engineer Danny Ledesma September 18, 2023 10:22am Living Will Yes September 18 10:22am Power of Oil Well Engineer Yes September 18, 2023 10:22am Documents on File 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 Date 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 Advance Directive(s) 08/21/2024 2:00 PM Advance Directive(s) 08/21/2024 1:57 PM Date Activated Date Inactivated Comments 08/18/2024 12:17 PM 08/20/2024 4:37 PM Question Answer Comments DNR Order Discussed With: Surrogate Decision Ryley er Surrogate Decision Maker Relationship: Health Ca re Power of Oil Well Engineer Agent Date Activated Date Inactivated Comments 08/17/2024 10:16 PM 08/18/2024 12:17 PM Question Answer Comments DNR Order Discussed With: State-Approved DNR Mariana ntification Documents on File Type Date 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 Yes December 03, 2024 10:35am Name of Medical Power of Oil Well Engineer Danny Chino December 03, 2024 10:35am Chief Complaint and Reason for Visit Chief Complaint [facility] LAB WOR K FPC BLOOD WORK FPC LAB WORK FPC LABWORK FPC LABWORK Chief Complaint FPC BLOOD W ORK FPC LAB WORK FPC LABWORK FPC LABWORK Chief Complaint FPC LABWORK FPC LABWORK FPC LAB WORK Chief Complaint FPC LAB WOR K LABWORK Chief Complaint LABWORK Chief Complaint LABWORK FPC LABWORK FPC LAB WORK LABWORK Chief Complaint FPC LAB WOR K LABWORK Chief Complaint FPC LAB WOR K LABWORK LABWORK Chief Complaint LABWORK LABWORK SEIZURE Chief Complaint LABWORK LABWORK SEIZURE FPC LABWORK Chief Complaint LABWORK LABWORK SEIZURE FPC LABWORK LABWORK Chief Complaint Admit Date LAB WORK September 17, 2024 5 :30am LAB WORK September 19, 2024 5 :00am LABWORK September 22, 2024 5 :00am LAB WORK September 26, 2024 5:00am LABWORK September 29, 2024 5:00am FPC LAB WORK November 14, 2024 5:00am seizure December 03, 2024 9:32am LABWORK December 10, 2024 5:00am FPC LAB WORK December 15, 2024 5: 00am Chief Complaint Admit Date LAB WORK September 19, 2024 5 :00am LABWORK September 22, 2024 5 :00am LAB WORK September 26, 2024 5:00am LABWORK September 29, 2024 5:00am FPC LAB WORK November 14, 2024 5:00am seizure December 03, 2024 9:32am LABWORK December 10, 2024 5:00am FPC LAB WORK December 15, 2024 5: 00am FPC LAB WORK December 26, 2024 5 :00am Chief Complaint Admit Date FPC LAB WORK November 14, 2024 5:00am seizure December 03, 2024 9:32am LABWORK December 10, 2024 5:00am FPC LAB WORK December 15, 2024 5: 00am FPC LAB WORK December 26, 2024 5 :00am FPC LAB WORK January 19, 2025 5: 00am Chief Complaint Admit Date FPC LAB WORK November 14, 2024 5:00am seizure December 03, 2024 9:32am LABWORK December 10, 2024 5:00am FPC LAB WORK December 15, 2024 5: 00am FPC LAB WORK December 26, 2024 5 :00am FPC LAB WORK January 19, 2025 5: 00am LABWORK January 28, 2025 5:0 0am Chief Complaint Admit Date FPC LAB WORK November 14, 2024 5:00am seizure December 03, 2024 9:32am LABWORK December 10, 2024 5:00am FPC LAB WORK December 15, 2024 5: 00am FPC LAB WORK December 26, 2024 5 :00am FPC LAB WORK January 19, 2025 5: 00am LABWORK January 28, 2025 5:0 0am FPC LAB WORK February 02, 2025 5 :00am Chief Complaint Admit Date FPC LAB WORK December 15, 2024 5: 00am FPC LAB WORK December 26, 2024 5 :00am FPC LAB WORK January 19, 2025 5: 00am LABWORK January 28, 2025 5:0 0am FPC LAB WORK February 02, 2025 5 :00am FPC LAB WORK February 27, 2025 5:0 0am LABWORK March 04, 2025 5:00a m [facility]PC LAB WORK March 10, 2025 5:0 0am Additional Source Comments INFORMATION SOURCE (unrecogn ized section and content) DATE CREATED AUTHOR 01/24/2019 [facility] DATE CREATED AUTHOR AUTHOR'S ORGANIZ ATION 07/30/2019 [facility] DATE CREATED AUTHOR AUTHOR'S ORGANIZ ATION 12/05/2024 [facility] DATE CREATED AUTHOR AUTHOR'S ORGANIZ ATION 12/17/2024 [facility] DATE CREATED AUTHOR AUTHOR'S ORGANIZ ATION 01/18/2025 [facility] DATE CREATED AUTHOR AUTHOR'S ORGANIZ ATION 04/22/2025 [facility] DATE CREATED AUTHOR AUTHOR'S ORGANIZ ATION 08/13/2025 [facility] Goals (unrecognized section and content) Goals may [...] Team Status: Active Member Role Status Dates Tdod Velasquez MD Primary Care Provider Active Team Status: Inactive Member Role Status Dates Orville Mendoza Primary Care Provider, Attending Tess ugarte Active Team Status: Inactive Member Role Status Dates Orville Mendoza Primary Care Provider Active Toddkathrine Velasquez MD Attending Provider Active Team Status: Inactive Member Role Status Dates Todd Velasquez MD Primary Care Provide r, Attending Provider, Referring Provider Active Team Status: Inactive Member Role Status Dates Todd Velasquez MD Primary Care Provider, Attending Pro vider Active Carnival Worker Relationship Specialty Start Date End Date Orville Mendoza [address] [place] [address] PCP - General Family Medicine 08/07/18 Claudia Gaston APRN.ICT SALES ASSISTANT [address] [place] [address] Referring Neurosurgery 07/29/19 Carnival Worker Relationship Specialty Start Date End Date Orville Mendoza [address] [place] [address] PCP - General Family Medicine 08/07/18 Claudia Gaston, ANYI.ICT SALES ASSISTANT [address] [place], [place] [address] Referring Neurosurgery 07/29/19 Team Status: Active Member Role Status Dates Todd FOX MD Primary Care Provider Active Team Status: Inactive Member Role Status Daisy FOX MD Primary Care Provider, Attending Provider Active Team Status: Inactive Member Role Status Daisy FOX MD Primary Care Provid er, Attending Provider, Referring Provider Active Team Status: Inactive Member Role Status Daisy FOX MD Primary Care Provider Active Dr. Kee Amezquita MD Referring Provider, Emergency Provider Active Team Status: Inactive Member Role Status Daisy FOX MD Primary Care Provider Active Dr. Kee Amezquita MD Attending Provid er, Referring Provider, Emergency Provider Active Team Status: Active Member Role Status Dates Todd FOX MD Primary Care Provider, Attending Provider Active Carnival Worker Relationship Specialty Start Date End Date Orville Mendoza DO [address] [place] [address] PCP - General Family Medicine 08/07/18 Claudia Gaston APRN.ICT SALES ASSISTANT [facility] [place] [address] Referring Neurosurgery 07/29/19 Carnival Worker Relationship Specialty Start Date End Date Orville Mendoza DO [address] [place] [address] PCP - General Family Medicine 08/07/18 Claudia Gaston APRN.ICT SALES ASSISTANT [address] [place] [address] Referring Neurosurgery 07/29/19 Carnival Worker Relationship Specialty Start Date End Date Orville Mendoza DO [address] [place] [address] PCP - General Family Medicine 08/07/18 Claudia Gaston APRN.ICT SALES ASSISTANT [address] [place] [address] Referring Neurosurgery 07/29/19 Carnival Worker Relationship Specialty Start Date End Date Orville Mendoza DO [address] [place] [address] PCP - General Family Medicine 08/07/18 Claudia Gaston APRN.ICT SALES ASSISTANT [address] [place] [address] Referring Neurosurgery 07/29/19 Carnival Worker Relationship Specialty Start Date End Date Orville Mendoza DO [address] [place] [address] PCP - General Family Medicine 08/07/18 Claudia Gaston APRN.ICT SALES ASSISTANT [address] [place] [address] Referring Neurosurgery 07/29/19 Carnival Worker Relationship Specialty Start Date End Date Orville Mendoza DO [address] [place] [address] PCP - General Family Medicine 08/07/18 Claudia Gaston APRN.ICT SALES ASSISTANT [address] [place] [address] Referring Neurosurgery 07/29/19 Carnival Worker Relationship Specialty Start Date End Date Orville Mendoza, DO [address] [place] [address] PCP - General Family Medicine 08/07/18 Claudia Gaston, ANYI.ICT SALES ASSISTANT [address] [place] [address] Referring Neurosurgery 07/29/19 Carnival Worker Relationship Specialty Start Date End Date Orville Mendoza, DO [address] [place] [address] PCP - General Family Medicine 08/07/18 Claudia Gaston, ANYI.ICT SALES ASSISTANT [address] [place] [address] Referring Neurosurgery 07/29/19 Carnival Worker Relationship Specialty Start Date End Date Orville Mendoza, DO [address] [place] [address] PCP - General Family Medicine 08/07/18 Claudia Gaston, ORTHODONTIC TECHNICIAN ASSISTANT.ICT SALES ASSISTANT [address] [place] [address] Referring Neurosurgery 07/29/19 Carnival Worker Relationship Specialty Start Date End Date Orville Mendoza, DO [address] [place], [place] [id number] PCP - General Family Medicine 08/07/18 Claudia Gaston, ORTHODONTIC TECHNICIAN ASSISTANT.ICT SALES ASSISTANT [address] [place], [place] [address] Referring Neurosurgery 07/29/19 Carnival Worker Relationship Specialty Start Date End Date Orville Mendoza, DO [address] [place], [place] [id number] PCP - General Family Medicine 08/07/18 Claudia Gaston, ORTHODONTIC TECHNICIAN ASSISTANT.ICT SALES ASSISTANT [address] [place] [address] Referring Neurosurgery 07/29/19 Carnival Worker Relationship Specialty Start Date End Date Orville Mendoza, DO [address] [place] [address] PCP - General Family Medicine 08/07/18 Claudia Gaston, ORTHODONTIC TECHNICIAN ASSISTANT.ICT SALES ASSISTANT [address] [place] [address] Referring Neurosurgery 07/29/19 Carnival Worker Relationship Specialty Start Date End Date Orville Mendoza, DO [address] [place], [place] [id number] PCP - General Family Medicine 08/07/18 Claudia Gaston, ANYI.ICT SALES ASSISTANT [address] [place] [address] Referring Neurosurgery 07/29/19 Carnival Worker Relationship Specialty Start Date End Date Orville Mendoza DO [address] [place], [place] [id number] PCP - General Family Medicine 08/07/18 Claudia Gaston, ANYI.ICT SALES ASSISTANT [address] [place] [address] Referring Neurosurgery 07/29/19 Carnival Worker Relationship Specialty Start Date End Date StephguyOrville [address] [place] [address] [address] [place] [address] PCP - General 03/15/19 Carnival Worker Relationship Specialty Start Date End Date LisaOrville lovingDO [address] [place], [place] [id number] PCP - General Family Medicine 08/07/18 Claudia Gaston, ANYI.ICT SALES ASSISTANT [address] [place] [address] Referring Neurosurgery 07/29/19 Team Status: Active Member [...] Care Provider Active Start: November 08, 2024 [facility] Attending Provider Active Start: November 08, [...] Provider Active S tart: December 26, 2024 Carnival Worker Relationship Specialty Start Date End Date Lisajose Orville Sequeira DO [address] [place] [address] PCP - General Family Medicine 08/07/18 Claudia Gaston APRN.ICT SALES ASSISTANT [address] [place], [place] [address] Referring Neurosurgery 07/29/19 Team Status: Inactive Member [...] Provider Active S tart: February 02, 2025 Carnival Worker Relationship Specialty Start Date End Date Orville Mendoza MatteoDO [address] [place] [address] PCP - General Family Medicine 08/07/18 Claudia Gaston APRN.ICT SALES ASSISTANT [address] [place] [address] Referring Neurosurgery 07/29/19 Team Status: Inactive Member [...] Sr. , Primary Care Provider Active Start: February 27, [...] Provider Active S tart: April 06, 2025 Carnival Worker Relationship Specialty Start Date End Date Orville Mendoza DO [address] [place] [id number] PCP - General Family Medicine 08/07/18 Claudia Gaston APRN.[facility] [address] [place] [id number] Referring Neurosurgery 07/29/19 Source Comments (unrecognize d section and content) In the event this informatio n is protected by the Federal Confidentiality of Alcohol and Drug Abuse Patient Records regulations: The Federal rules restrict any use of the information to criminally investigate or prosecute any alcohol or drug abuse patient.[facility] the event this information is protected by the Federal Confidentiality of Alcohol and Drug Abuse Patient Records regulations: The Federal rules restrict any use of the information to criminally investigate or prosecute any alcohol or drug abuse patient.[facility] Center[facility] the event this information is protected by the Federal Confidentiality of Alcohol and Drug Abuse Patient Records regulations: The Federal rules restrict any use of the information to criminally investigate or prosecute any alcohol or drug abuse patient.[facility] Center[facility] the event this information is protected by the Federal Confidentiality of Alcohol and Drug Abuse Patient Records regulations: The Federal rules restrict any use of the information to criminally investigate or prosecute any alcohol or drug abuse patient.[facility] CenterIn the event this information is protected by the Federal Confidentiality of Alcohol and Drug Abuse Patient Records regulations: The Federal rules restrict any use of the information to criminally investigate or prosecute any alcohol or drug abuse patient.[facility] CenterIn the event this information is protected by the Federal Confidentiality of Alcohol and Drug Abuse Patient Records regulations: The Federal rules restrict any use of the information to criminally investigate or prosecute any alcohol or drug abuse patient.[facility] CenterIn the event this information is protected by the Federal Confidentiality of Alcohol and Drug Abuse Patient Records regulations: The Federal rules restrict any use of the information to criminally investigate or prosecute any alcohol or drug abuse patient.[facility] CenterIn the event this information is protected by the Federal Confidentiality of Alcohol and Drug Abuse Patient Records regulations: The Federal rules restrict any use of the information to criminally investigate or prosecute any alcohol or drug abuse patient.[facility] CenterIn the event this information is protected by the Federal Confidentiality of Alcohol and Drug Abuse Patient Records regulations: The Federal rules restrict any use of the information to criminally investigate or prosecute any alcohol or drug abuse patient.[facility] CenterIn the event this information is protected by the Federal Confidentiality of Alcohol and Drug Abuse Patient Records regulations: The Federal rules restrict any use of the information to criminally investigate or prosecute any alcohol or drug abuse patient.[facility] CenterIn the event this information is protected by the Federal Confidentiality of Alcohol and Drug Abuse Patient Records regulations: The Federal rules restrict any use of the information to criminally investigate or prosecute any alcohol or drug abuse patient.[facility] CenterIn the event this information is protected by the Federal Confidentiality of Alcohol and Drug Abuse Patient Records regulations: The Federal rules restrict any use of the information to criminally investigate or prosecute any alcohol or drug abuse patient.[facility] CenterIn the event this information is protected by the Federal Confidentiality of Alcohol and Drug Abuse Patient Records regulations: The Federal rules restrict any use of the information to criminally investigate or prosecute any alcohol or drug abuse patient.[facility] CenterIn the event this information is protected by the Federal Confidentiality of Alcohol and Drug Abuse Patient Records regulations: The Federal rules restrict any use of the information to criminally investigate or prosecute any alcohol or drug abuse patient.[facility] CenterIn the event this information is protected by the Federal Confidentiality of Alcohol and Drug Abuse Patient Records regulations: The Federal rules restrict any use of the information to criminally investigate or prosecute any alcohol or drug abuse patient.[facility] CenterIn the event this information is protected by the Federal Confidentiality of Alcohol and Drug Abuse Patient Records regulations: The Federal rules restrict any use of the information to criminally investigate or prosecute any alcohol or drug abuse patient.[facility] CenterIn the event this information is protected by the Federal Confidentiality of Alcohol and Drug Abuse Patient Records regulations: The Federal rules restrict any use of the information to criminally investigate or prosecute any alcohol or drug abuse patient.[facility] CenterIn the event this information is protected by the Federal Confidentiality of Alcohol and Drug Abuse Patient Records regulations: The Federal rules restrict any use of the information to criminally investigate or prosecute any alcohol or drug abuse patient.[facility] CenterIn the event this information is protected by the Federal Confidentiality of Alcohol and Drug Abuse Patient Records regulations: The Federal rules restrict any use of the information to criminally investigate or prosecute any alcohol or drug abuse patient.[facility] CenterIn the event this information is protected by the Federal Confidentiality of Alcohol and Drug Abuse Patient Records regulations: The Federal rules restrict any use of the information to criminally investigate or prosecute any alcohol or drug abuse patient.[facility] CenterIn the event this information is protected by the Federal Confidentiality of Alcohol and Drug Abuse Patient Records regulations: The Federal rules restrict any use of the information to criminally investigate or prosecute any alcohol or drug abuse patient.[facility] CenterIn the event this information is protected by the Federal Confidentiality of Alcohol and Drug Abuse Patient Records regulations: The Federal rules restrict any use of the information to criminally investigate or prosecute any alcohol or drug abuse patient.[facility] CenterIn the event this information is protected by the Federal Confidentiality of Alcohol and Drug Abuse Patient Records regulations: The Federal rules restrict any use of the information to criminally investigate or prosecute any alcohol or drug abuse patient.[facility] CenterIn the event this information is protected by the Federal Confidentiality of Alcohol and Drug Abuse Patient Records regulations: The Federal rules restrict any use of the information to criminally investigate or prosecute any alcohol or drug abuse patient.[facility] CenterIn the event this information is protected by the Federal Confidentiality of Alcohol and Drug Abuse Patient Records regulations: The Federal rules restrict any use of the information to criminally investigate or prosecute any alcohol or drug abuse patient.[facility] CenterIn the event this information is protected by the Federal Confidentiality of Alcohol and Drug Abuse Patient Records regulations: The Federal rules restrict any use of the information to criminally investigate or prosecute any alcohol or drug abuse patient.[facility] CenterIn the event this information is protected by the Federal Confidentiality of Alcohol and Drug Abuse Patient Records regulations: The Federal rules restrict any use of the information to criminally investigate or prosecute any alcohol or drug abuse patient.[facility] Reason for Visit (unrecogniz ed section and content) Reason Comments Results Reason Comments Release Of Medical Records Reason Comments Outside Labs Results VPA Reason Comments Forms Review results and o rders Reason Comments Outside Lab Results PHENYTOIN Reason Comments New Patient Epilepsy Reason Comments Outside Lab Results [facility] Reason Comments general seizure monitoring r eport Reason Comments Seizures Reason Comments Received Outside Medical Records Seizure monitoring report Reason Onset Date Comments Refill Request 11/11/2024 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 Pt from [facility] for 38 minute witnessed seizure [...] fever cause Procedures . Fazal Garza MD [address] [place] [address] Phone: tel: fax: [facility] Epilepsy Monitoring Unit [address] [place] [phone] Phone: tel: fax: Referral ID Status Reason Start Date Expiration Date Visits Re quested Visits Authorized [id number] 1 1 Reason Comments Outside Lab Results lacosamide Reason [facility] Reason Comments Medication Problem Nayzilam - Medicatio n Not Working Reason Comments Follow Up Epilepsy Reason Comments Medication Problem Lacosamide Reason Comments New Patient Specialty Diagnoses / Procedures Referred By Contac t Referred To Contact Rheumatology Diagnoses Osteoporosis without current pathological fracture, unspecified osteoporosis type Procedures CONSULT TO RHEUM/IMMUN DISEASE OFFICE/OUTPATIENT NEW HIGH MDM 60 MINUTES Jayant Jimenez MD [address] [place] [address] Phone: tel: fax: Referral ID Status Reason Start Date Expiration Date V isits Requested Visits Authorized [id number] Closed PCP Requested Referral 12/01/2024 12/01/2025 1 1 Reason Onset Date Comments SPP Osteoporosis - Treatment Referral 02/26/2025 Teriparatide Insurance Authorization 02/26/2025 Teripara tiyamilex PA Submission pending Scheduled Active and Recently [...] Units, Oral, Daily, First dose on Patricia 25 at 0900 0848 (Given - Provider: Fausto Linn LPN) 0928 (Given - Provider: Kaylee Carrasco RN) 0943 (Given - Provider: Adam Pimentel, MEGA) docusate sodium (Colace) capsule 100 mg 100 mg, Oral, Daily, First dose on Patricia 12/04/24 at 0900, Do not crush or break. 0848 (Given - Provider: Fausto Linn LPN) 0928 (Given - Provider: Kaylee Carrasco RN) 0942 (Given - Provider: Adam Pimentel, MEGA) escitalopram (Lexapro) tablet 20 mg 20 mg, Oral, Daily, First dose on Patricia 25 at 0800 0848 (Given - Provider: Fausto Linn LPN) 0928 (Given - Provider: Kaylee Carrasco RN) 0943 (Given - Provider: Adam Pimentel, MEGA) ethosuximide (Zarontin) capsule 250 mg 250 mg, Oral, 2 times daily, First dose on Patricia 25 at 0900 0848 (Given - Provider: Fausto [...] 0848 (Given - Provider: Fausto Linn LPN) 927 (Given - Provider: Kaylee Carrasco RN) 09 (Given - Provider: Adam Pimentel RN) lacosamide [...] 0511 (Given - Provider: Jeanne Avina RN) 05 [...] 0848 (Given - Provider: Fausto Linn LPN) 927 (Given - Provider: Kaylee Carrasco RN) 941 (Given - Provider: Adam Pimentel RN) potassium chloride (Klor-Con) packet 10 mEq 10 mEq, Oral, Daily, First dose (after last modification) on Sun12/05/24 at 0900, Dissolve each packet in 4 ounces of water = 5 mEq per 1 oz fluid. 0848 (Given - Provider: Fausto Linn LPN) 09 (Given - Provider: Kaylee Carrasco, RN) 0943 (Given - Provider: Adam Pimentel, RN) valproic acid (Depakene) capsule 500 mg 500 mg, Oral, 2 times daily, First dose (after last modification) on Sun12/04/24 at 1400 0848 (Given - Provider: Fausto Linn LPN)2049 (Given - Provider: Jeanne Avina, RN) 09 (Given - Provider: Kaylee Carrasco, RN)2101 (Given - Provider: Jeanne Avina, RN) 0943 (Given - Provider: Adam Pimentel, RN) PRN Medication Order 12/06/2024 12/07/2024 12/08/2024 acetaminophen (Tylenol) suppository 650 mg(Linked Group 1) 650 mg, Rectal, Every 6 hours PRN, fever, For temp greater than 100.4 F (38 C), Starting on Sun12/04/24 at 0122, Administer if oral route cannot [...] Every 4 hours PRN, wheezing, Starting on Sun12/04/24 at 0502 bisacodyl (Dulcolax) suppository 10 mg 10 mg, Rectal, Daily PRN, constipation, Starting on Sun12/04/24 at 0502 ondansetron (Zofran) injection 4 mg(Linked Group 2) 4 mg, IntraVENous, Every 6 hours PRN, nausea, vomiting, Starting on Sun12/04/24 at 0122, 1st Line. Give IV if [...] BE BASED ON THE PRIMARY CLINICAL RECORDS. [facility]. provides no warranty or guarantee of the accuracy or completeness of information in this document.
[2025-08-19 08:39] LABS: Hematocrit 34.9 % (37-47); Hemoglobin 11.2 g/dL (12.0-15.0); Mean Corp Hgb Conc 32.1 g/dL (32-36); Mean Corpuscular Volume 89.5 fL (81-99); Mean Platelet Vol. 11.0 fl (6.2-12.0); Platelet Count 241 K/mm3 (150-450); RBC Distribution Width CV 15.9 % (11.6-14.6); RBC Distribution Width SD 52.0 fl (35.1-43.9); Red Blood Count 3.90 M/mm3 (4.2-5.4); White Blood Count 7.8 K/mm3 (4.4-11.0)
[2025-08-19 08:56] LABS: AST(SGOT) 32 U/L (<=31); Alanine Aminotransfer ALT/SGPT 14 U/L (<=34); Albumin, Serum 4.1 g/dL (3.4-4.8); Alkaline Phosphatase 95 U/L (35-104); Anion Gap 11 (5-15); BUN 18 mg/dL (4-19); BUN/Creat Ratio 24.0 RATIO (10-20); Calcium,Total 10.2 mg/dL (7.6-11.0); Carbon Dioxide 25.0 mmol/L (21.0-32.0); Chloride 102 mmol/L (98-108); Globulin 3.6 g/dL (2.2-4.2); Glucose 102 mg/dL (70-99); Potassium 4.8 mmol/L (3.3-5.1)
== END ==
LOC: OLS.ACH 05:00
PROVIDERS: PCP Internal Medicine; Visit Provider Internal Medicine
DX: G40.909 Epilepsy, unspecified, not intractable, without status epilepticus (principal)
CPT/HCPCS: 36415; 80053; 85027

== ENCOUNTER → 2025-08-24 05:00 | Outpatient (REF) | payer MEDICARE, OTHER, MEDICAID, SELFPAY ==
--- OUTSIDE RECORDS SUMMARY | 2025-08-24 04:05 | XMS RPT_ITS | CCD ---
Author Organization [facility] Care Team Providers Care Homeland Security Program Specialist Name Role Phone UNKNOWN, PROVIDER Referring Unavailable [facility] Unavailable Tj Peguero Attending Unavailable [facility] [place] Attending Unavailable UNKNOWN, PROVIDER Referring Unavailable [facility] Primary Care Unavailable [facility] Primary Care Provider Alek DE SANTIAGO.GROUNDS SUPERVISOR, Claudia Unavailable [facility] Provide r DAMIR MCKEE Referring Unavailable [facility] Primary Care Provider [facility] Primary Care Unavailable FAZAL GARZA Admitting Unavailable DEKERRY SUSAN Consulting Unavailable DENISE HAIR Attending Unavailable Ron SESAY, Todd Primary Care Provider Unavailab gael Velasquez MD, Todd Attending Provider Unavailable [facility] Attending Provider Ruchi asadble Andi SESAY, Dr. Reich Attending Provider Dr. Damir Mckee MD Emergency Provider [phone] Todd Velasquez Sr., DO Primary Care Provider Ron SESAY, Todd Primary Care Provider Unavailab gael Velasquez MD, Todd Attending Provider Unavailable [facility] Primary Care Unavail able JAYANT JIMENEZ Attending Unavailabl e [facility] Care Unavail able JAYANT JIMENEZ Referring Unavailabl e [facility] Primary Care Unavail able JAYANT JIMENEZ Attending UnavailTAO Lynch Admitting Unavailable HAYES NICHOLSON Referring Unavailable [facility] Primary Care Unavail able JUAN JOSE HENDERSON Attending Unavailable ITRAT, AHMED Consulting Unavailable Ron SESAY, Todd Primary Care Provider Unavailab gael Velasquez MD, Todd Attending Provider Unavailable Deperro Sr. , Dr. Brooks Primary Care Provider Ron SESAY, Todd Attending Provider Unavailable LOLITA JAIN Attending Unavailable JAYANT JIMENEZ Referring UnavailORVILLE Candelario Primary Care Unavail able Deperro OLS, Todd Attending Unavailable Deperro Sr., [...] Unavailable Deperro OLS, Todd Primary Care Unavailable [facility] [place] Attending Unavai lable Deperro OLS, Todd Attending Unavailable Deperro Sr., [...] OLS, Todd Attending Unavailable Deperro Sr., Todd Referring Unavailable Alexia [...] Primary Care Unavailable Mckee, Damir Attending Unavailable Deperro Sr., Todd Primary Care Unavailable Mckee, Damir Attending Unavailable Deperro OLS, Todd Attending Unavailable [...] epilepticus, unspecified epilepsy type (HCC) Use 1 [place] in the nose as needed for seizures [...] oral capsule (20 sources) Anti-epileptic Agent Start: End: take 1 capsule by mouth twice daily ethosuximide (ZARONTIN) 250 mg capsule Take 1 capsule by mouth two times a day. 10 capsule 08/20/2024 Active Start: 09-18-2023 take 1 capsule by [facility] every twelve hours Ethosuximide 250 mg [...] epilepticus, unspecified epilepsy type (HCC) Use 1 [place] in the nose as needed for seizures [...] by mouth every 6 hours as needed. [id number] actuat albuter ol 0.09 mg/actuat metered [...] mouth. Active take 1 capsule by mo [facility] once daily cholecalciferol (Vitamin D-3) 50 [...] 20 mg, Oral, Daily, First dose on [facility] 12/04/24 at 0800 Start: 09-18-20[address] [facility] once daily escitalopram oxalate (LEXAPRO) 20 mg [...] aerosol inhaler (9 sources) Start: 09-18-2023 End: 02-19-2025 Fluticasone Propionate [Fluticasone Propionate 44 Mcg/Actuation Hfa [...] 2100, For 1 dose polyethylene glycol 3350 27819 mg powder for oral solution (2 sources) [...] Episodic Fracture of upper limb (1 source) Fracture of unspecified shoulder girdle, part unspecified, initial encounter for closed fracture; 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: [Fracture of unspecified shoulder girdle, part unspecified, initial encounter for closed fracture] Onset: 08-19-2025 Episodic Gastroduodenal ulcer (except hemorrhage) (3 sources) [...] Long-term current use of drug therapy; 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: [snf (current) use of other agents affecting estrogen [...] [Allergic rhinitis, unspecified] Onset: 01-27-2020 07-28-2022 Chronic Residual codes; unclassified (1 source) Dependence [...] sources) H/O: high risk medication; 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: [Other jail (current) drug therapy] Onset: 08-07-2018 08-07-2018 Episodic Other aftercare (1 source) 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 Comment on above: Order Comment: 211-1 Performed By: #### L 500.4050, L100.0500 #### [facility] [place], [address] Hematocrit (Bld) [Volume fraction] 34.9 % Low 37-47 [facility] Comment on above: Order Comment: -1 Performed By: #### L 500.4050, L100.0500 #### [facility] [address] [place], [address] Hemoglobin (Bld) [Mass/Vol] 11.2 g/dL Low 12.0-15.0 [facility] Comment on above: Order Comment: - Performed By: #### L 500.4050, L100.0500 #### [facility] [address] [place], [address] MCH (RBC) [Entitic mass] 28.7 pg Normal 27.0-32.0 [facility] Comment on above: Order Comment: - Performed By: #### L 500.4050, L100.0500 #### [facility] [address] [place], [address] MCHC (RBC) [Mass/Vol] 32.1 g/dL Normal 32-36 [facility] Comment on above: Order Comment: - Performed By: #### L 500.4050, L100.0500 #### [facility] [address] [place], [address] MCV (RBC) [Entitic vol] 89.5 fL Normal 81-99 [facility] Comment on above: Order Comment: - Performed By: #### L 500.4050, L100.0500 #### [facility] [address] [place], [address] Platelet mean volume (Bld) [Entitic vol] 11.0 fL Normal 6.2-12.0 [facility] Comment on above: Order Comment: - Performed By: #### L 500.4050, L100.0500 #### [facility] [address] [place], [address] Platelets (Bld) [#/Vol] 241 10*3/uL Normal 150-450 [facility] Comment on above: Order Comment: -1 Performed By: #### L 500.4050, L100.0500 #### [facility] [address] [place], [address] RBC (Bld) [#/Vol] 3.90 10*6/uL Low 4.2-5.4 [facility] Comment on above: Order Comment: - Performed By: #### L 500.4050, L100.0500 #### [facility] [address] [place], [address] RDW SD 52.0 fl High 35.1-43.9 [facility] Comment on above: Order Comment: - Performed By: #### L 500.4050, L100.0500 #### [facility] [address] [place], [address] WBC (Bld) [#/Vol] 7.8 10*3/uL Normal 4.4-11.0 [facility] Comment on above: Order Comment: - Performed By: #### L 500.4050, L100.0500 #### [facility] [address] [place], [address] Comprehensive Metabolic Prof kyon 08-19-2025 Albumin [Mass/Vol] 4.1 g/dL Normal 3.4-4.8 [facility] Comment on above: Order Comment: - Performed By: #### L 500.4050, L100.0500 #### [facility] [address] [place], [address] Albumin/Globulin [Mass ratio] 1.1 {ratio} Normal 0.9-2.4 [facility] Comment on above: Order Comment: -1 Performed By: #### L 500.4050, L100.0500 #### [facility] [address] [place], [address] ALK PHOS 95 U/L Normal 35-104 [facility] Comment on above: Order Comment: - Performed By: #### L 500.4050, L100.0500 #### [facility] [address] [place], [address] ALT [Catalytic activity/Vol] 14 U/L Normal <=34 [facility] Comment on above: Order Comment: - Performed By: #### L 500.4050, L100.0500 #### [facility] [address] [place], [address] AST [Catalytic activity/Vol] 32 U/L Normal <=31 [facility] Comment on above: Order Comment: - Performed By: #### L 500.4050, L100.0500 #### [facility] [address] [place], [address] Bilirubin [Mass/Vol] 0.69 mg/dL Normal 0.00-1.30 [facility] Comment on above: Order Comment: - Performed By: #### L 500.4050, L100.0500 #### [facility] [address] [place], [address] BUN/CRE 24.0 RATIO High 10-20 [facility] Comment on above: Order Comment: - Performed By: #### L 500.4050, L100.0500 #### [facility] [address] [place], [address] Calcium [Mass/Vol] 10.2 mg/dL Normal 7.6-11.0 [facility] Comment on above: Order Comment: - Performed By: #### L 500.4050, L100.0500 #### [facility] [address] [place], [address] Chloride [Moles/Vol] 102 mmol/L Normal 98-108 [facility] Comment on above: Order Comment: Performed By: #### L 500.4050, L100.0500 #### [facility] [address] [place], [address] CO2 [Moles/Vol] 25.0 mmol/L Normal 21.0-32.0 [facility] Comment on above: Order Comment: Performed By: #### L 500.4050, L100.0500 #### [facility] [address] [place], [address] Creatinine [Mass/Vol] 0.75 mg/dL Normal 0.70-1.20 [facility] Comment on above: Order Comment: Performed By: #### L 500.4050, L100.0500 #### [facility] [address] [place], [address] GAP 11 Normal 5-15 [facility] Comment on above: Order Comment: Performed By: #### L 500.4050, L100.0500 #### [facility] [address] [place], [address] GFR/1.73 sq M.predicted among non-blacks MDRD (S/P/Bld) [Vol rate/Area] 81 mL/min/{1.73_m2} Normal >60 [facility] Comment on above: Order Comment: Result Comment: mL/m in/1.73m2 CKD-EPI Creatinine Equation (2020) Performed By: #### L 500.4050, L100.0500 #### [facility] [address] [place], [address] Globulin (S) [Mass/Vol] 3.6 g/dL Normal 2.2-4.2 [facility] Comment on above: Order Comment: Performed By: #### L 500.4050, L100.0500 #### [facility] [address] [place], [address] Glucose [Mass/Vol] 102 mg/dL High 70-99 [facility] Comment on above: Order Comment: 211- Performed By: #### L 500.4050, L100.0500 #### [facility] [address] [place], [address] Potassium [Moles/Vol] 4.8 mmol/L Normal 3.3-5.1 [facility] Comment on above: Order Comment: - Performed By: #### L 500.4050, L100.0500 #### [facility] [address] [place], [address] Sodium [Moles/Vol] 138 mmol/L Normal 133-145 [facility] Comment on above: Order Comment: - Performed By: #### L 500.4050, L100.0500 #### [facility] [address] [place], [address] T PROT 7.6 g/dL Normal 5.9-8.4 [facility] Comment on above: Order Comment: - Performed By: #### L 500.4050, L100.0500 #### [facility] [address] [place], [address] Urea nitrogen [Mass/Vol] 18 mg/dL Normal 4-19 [facility] Comment on above: Order Comment: - Performed By: #### L 500.4050, L100.0500 #### [facility] [address] [place], [address] Orthopedic Visit Reporton Orthopedic Visit Report [facility] [address] [place] [address] [address] [place] [address] OFFICE VISIT Date of Service: 08/13/25 MR#: [id number] Acct: [id number] Name: KATHERYN CHINO Rep #: [id number] : 1945 Provider: ADDIE latham Age/Sex: 80/F Location: [email or web address] Status: Signed Intake Vital Signs 08/09/25 07:10 [...] bisacodyl 10 mg rectal suppository 10 mg AL QDAY PRN 08/13/2508/13 History carbamide peroxide 6.5 [...] intractable, without (more content not included)... Normal [facility] Emergency Department Summary on 08-09-2025 Emergency Department Summary [facility] Medical Records Department [address] [place] [address] Emergency Department Summary 08/09/25 MR#: [id number] Acct: [id number] Name: KATHERYN CHINO Rep #: [id number] : 1945 80 From: Damir Mckee MD [...] Weakness Narrative Narrative: Patient is a 80-year-old sicod-wnrl-vvkltugk woman. She presents by ambulance from nursing [...] Prior similar symptoms: No Recent Illness/Hospitalization: No [facility] Medical History Dysphagia, oropharyngeal phase [...] PO Q (more content not included)... Normal [facility] Shoulder min 2 Viewson 08-09 Shoulder min 2 Views [facility] Imaging Services [address] [place], [place] [id number] Shoulder min 2 Views MR#: [id number] Acct: [id number] Name: KATHERYN CHINO Rep #: [id number] : 1945 F 80 From: Rudy Friend MD PCP: Dr. Todd Velasquez Sr., DO Status: REG ER Study: Shoulder min 2 Views Date of Exam: 08/09/25 Exam# [id number] Ordering Dr: Damir Mckee MD PROCEDURE: SHOULDER [...] with involvement other greater tuberosity. Reading Location: [id number] CC: Dr. Todd Velasquez Sr., DO; Dr. Damir Mckee MD Unit Director: Signed Normal [facility] Thyroid Stim Hormone (TSH)on 06-17-2025 TSH 2.770 uIU/mL Normal 0.300-4.[address] [facility] Comment on above: Order Comment: 0730 Performed By: #### L 501.8100, L501.7700, L500.4050, L100.0100 #### [facility] [address] [place], [address] L3410.9992on 06-05-2025 [facility] COMMENT Normal . [facility] Comment on above: Order Comment: Result Comment: Test Ordered: [id number] Lacosamide Test(s) 064056-Pfwmyisvtr was developed and its performance characteristics determined by [facility]. It has not been cleared or approved by the Food and Drug Administration. Lacosamide 7.9 ug/mL Reference Range: 5.0-10.0 Limit of Detection 0.5 Mean plasma concentrations following maintenance dose 200 mg/day 4.99 +/- 2.51 ug/mL 400 mg/day 9.35 +/- 4.22 ug/mL 600 mg/day 12.46 +/- 5.60 ug/mL Performed at: [facility] [address] [id number] Corporate Ethics Officer: Nahed Naidu MD, Phone: [phone] Performed at: [address] [id number] Corporate Ethics Officer: Hairs Peraza PhD, Phone: [phone] Performed By: #### L 501.8100, L501.7700, L500.4050, L100.0100 #### [facility] [address] [place], [address] Thyroid Stim Hormone (TSH)on 06-01-2025 TSH 2.850 uIU/mL Normal 0.300-4.[address] [facility] Comment on above: Order Comment: Performed By: #### L 501.8100, L501.7700, L500.4050, L100.0100 #### [facility] [address] [place], [address] Valproic Acid (Depakene) Lev maribell 06-01-2025 VALPROIC ACID 91 ug/mL Normal 50-100 [facility] Comment on above: Order Comment: Result Comment: Valp roic Acid concentrations >100 ug/mL are potentially toxic. Performed By: #### L 501.8100, L501.7700, L500.4050, L100.0100 #### [facility] [address] [place], [address] CBC-Complete Blood Cnt No Di ffon 05-27-2025 Erythrocyte distribution width (RBC) [Ratio] 14.6 % Normal 11.6-14.6 [facility] Comment on above: Order Comment: Performed By: #### L 500.4050, L100.0500 #### [facility] [address] [place], [address] Hematocrit (Bld) [Volume fraction] 31.2 % Low 37-47 [facility] Comment on above: Order Comment: Performed By: #### L 500.4050, L100.0500 #### [facility] [address] [place], [address] Hemoglobin (Bld) [Mass/Vol] 9.8 g/dL Low 12.0-15.0 [facility] Comment on above: Order Comment: - Performed By: #### L 500.4050, L100.0500 #### [facility] [address] [place], [address] MCH (RBC) [Entitic mass] 27.7 pg Normal 27.0-32.0 [facility] Comment on above: Order Comment: - Performed By: #### L 500.4050, L100.0500 #### [facility] [address] [place], [address] MCHC (RBC) [Mass/Vol] 31.4 g/dL Low 32-36 [facility] Comment on above: Order Comment: - Performed By: #### L 500.4050, L100.0500 #### [facility] [address] [place] [place], [address] MCV (RBC) [Entitic vol] 88.1 fL Normal 81-99 [facility] Comment on above: Order Comment: - Performed By: #### L 500.4050, L100.0500 #### [facility] [address] [place], [address] Platelet mean volume (Bld) [Entitic vol] 12.2 fL High 6.2-12.0 [facility] Comment on above: Order Comment: - Performed By: #### L 500.4050, L100.0500 #### [facility] [address] [place], [address] Platelets (Bld) [#/Vol] 163 10*3/uL Normal 150-450 [facility] Comment on above: Order Comment: - Performed By: #### L 500.4050, L100.0500 #### [facility] [address] [place], [address] RBC (Bld) [#/Vol] 3.54 10*6/uL Low 4.2-5.4 [facility] Comment on above: Order Comment: - Performed By: #### L 500.4050, L100.0500 #### [facility] [address] [place], [address] RDW SD 47.3 fl High 35.1-43.9 [facility] Comment on above: Order Comment: - Performed By: #### L 500.4050, L100.0500 #### [facility] [address] [place], [address] WBC (Bld) [#/Vol] 7.6 10*3/uL Normal 4.4-11.0 [facility] Comment on above: Order Comment: - Performed By: #### L 500.4050, L100.0500 #### [facility] [address] [place], [address] Comprehensive Metabolic Prof [facility] 05-27-2025 Albumin [Mass/Vol] 3.7 g/dL Normal 3.4-4.8 [facility] Comment on above: Order Comment: - Performed By: #### L 500.4050, L100.0500 #### [facility] [address] [place], [address] Albumin/Globulin [Mass ratio] 1.2 {ratio} Normal 0.9-2.4 [facility] Comment on above: Order Comment: - Performed By: #### L 500.4050, L100.0500 #### [facility] [address] [place], [address] ALK PHOS 84 U/L Normal 35-104 [facility] Comment on above: Order Comment: - Performed By: #### L 500.4050, L100.0500 #### [facility] [address] [place], [address] ALT [Catalytic activity/Vol] 9 U/L Normal <=34 [facility] Comment on above: Order Comment: - Performed By: #### L 500.4050, L100.0500 #### [facility] [address] [place], [address] AST [Catalytic activity/Vol] 21 U/L Normal <=31 [facility] Comment on above: Order Comment: - Performed By: #### L 500.4050, L100.0500 #### [facility] [address] [place], [address] Bilirubin [Mass/Vol] 0.18 mg/dL Normal 0.00-1.30 [facility] Comment on above: Order Comment: - Performed By: #### L 500.4050, L100.0500 #### [facility] [address] [place], [address] BUN/CRE 23.0 RATIO High 10-20 [facility] Comment on above: Order Comment: - Performed By: #### L 500.4050, L100.0500 #### [facility] [address] [place], [address] Calcium [Mass/Vol] 9.6 mg/dL Normal 7.6-11.0 [facility] Comment on above: Order Comment: - Performed By: #### L 500.4050, L100.0500 #### [facility] [address] [place], [address] Chloride [Moles/Vol] 105 mmol/L Normal 98-108 [facility] Comment on above: Order Comment: - Performed By: #### L 500.4050, L100.0500 #### [facility] [address] [place], [address] CO2 [Moles/Vol] 23.5 mmol/L Normal 21.0-32.0 [facility] Comment on above: Order Comment: Performed By: #### L 500.4050, L100.0500 #### [facility] [address] [place], [address] Creatinine [Mass/Vol] 0.78 mg/dL Normal 0.70-1.20 [facility] Comment on above: Order Comment: Performed By: #### L 500.4050, L100.0500 #### [facility] [address] [place], [address] GAP 11 Normal 5-15 [facility] Comment on above: Order Comment: Performed By: #### L 500.4050, L100.0500 #### [facility] [address] [place], [address] GFR/1.73 sq M.predicted among non-blacks MDRD (S/P/Bld) [Vol rate/Area] 78 mL/min/{1.73_m2} Normal >60 [facility] Comment on above: Order Comment: Result Comment: mL/m in/1.73m2 CKD-EPI Creatinine Equation (2020) Performed By: #### L 500.4050, L100.0500 #### [facility] [address] [place], [address] Globulin (S) [Mass/Vol] 3.2 g/dL Normal 2.2-4.2 [facility] Comment on above: Order Comment: Performed By: #### L 500.4050, L100.0500 #### [facility] [address] [place], [address] Glucose [Mass/Vol] 88 mg/dL Normal 70-99 [facility] Comment on above: Order Comment: Performed By: #### L 500.4050, L100.0500 #### [facility] [address] [place], [address] Potassium [Moles/Vol] 4.7 mmol/L Normal 3.3-5.1 [facility] Comment on above: Order Comment: 211-1 Performed By: #### L 500.4050, L100.0500 #### [facility] [address] [place], [address] Sodium [Moles/Vol] 139 mmol/L Normal 133-145 [facility] Comment on above: Order Comment: 211-1 Performed By: #### L 500.4050, L100.0500 #### [facility] [address] [place], [address] T PROT 6.9 g/dL Normal 5.9-8.4 [facility] Comment on above: Order Comment: 211-1 Performed By: #### L 500.4050, L100.0500 #### [facility] [address] [place], [address] Urea nitrogen [Mass/Vol] 18 mg/dL Normal 4-19 [facility] Comment on above: Order Comment: 211-1 Performed By: #### L 500.4050, L100.0500 #### [facility] [address] [place], [address] CNPNon 04-16-2025 CNPN Telephone (WSTR) -------- KATHERYN CHINO ([id number]) 1945 F Date Time Provider Department 04/16/25 [facility] During your visit today, we recorded the following information about you: Lolita Jain PA-C 04/16/2025 9:36 AM Signed Received outside medical records from [facility] dated 04/06/25 PTH level is 76 [...] don't use in patients who have had GA/Stroke in the past year. She will review with Katheryn and ERNESTINE and let us know preference moving forward regarding treatment. Thanks KG Please fax this phone encounter to [phone] for their records Shavonne Sinclair RN 04/16/2025 10:19 AM Signed Telephone encounter faxed. Shavonne Sinclair RN Allergies As of Date: 04/16/2025 (No Known Allergies) Date Reviewed: 02/25/2025 Reviewed by: Jacki Sumner MA - Fully Assessed Primary Visit Diagnosis:Hyperparathyro id (HCC) [E21.3] Other Visit Diagnosis:Elevated parathyroid hormone [R79.89] Order(s):CONSULT TO ENDOCRINOLOGY [9007] Order #: [id number]: 1 FUTURE Prescriptions as of 04/16/2025 - [...] mg/spray (0.1 mL) nasal spray Use 1 [place] in the nose as needed for seizures [...] Status:Closed by SHAVONNE SINCLAIR on 04/16/25 Normal [facility] PTHINon 04-06-2025 PTH 76 pg/mL High [facility] Comment on above: Order Comment: 0730 Performed By: #### L 501.8100, L501.7700, L500.4050, L100.0100 #### [facility] [address] [place], [address] L3410.9992on 03-14-2025 [facility]. COMMENT Normal . [facility] Comment on above: Order Comment: Result Comment: Test Ordered: [id number] Lacosamide Test(s) 774847-Rpiinrecvk was developed and its performance characteristics determined by [facility]. It has not been cleared or approved by the Food and Drug Administration. Lacosamide 8.0 ug/mL Reference Range: 5.0-10.0 Limit of Detection 0.5 Mean plasma concentrations following maintenance dose 200 mg/day 4.99 +/- 2.51 ug/mL 400 mg/day 9.35 +/- 4.22 ug/mL 600 mg/day 12.46 +/- 5.60 ug/mL Performed at: - [address] [id number] Corporate Ethics Officer: Nahed Naidu MD, Phone: [phone] Performed at: [address] [id number] Corporate Ethics Officer: Haris Peraza PhD, Phone: [phone] Performed By: #### L 501.8100, L501.7700, L500.4050, L100.0100 #### [facility] [address] [place], [address] Serum or plasma valproate me asurement (mass/volume)Ordered By: Todd Velasquez on 03-10-2025 Valproate [Mass/Vol] 91 ug/mL 50-100 [facility] Comment on above: Valproic Acid concen trations >100 ug/mL are potentially toxic. Valproic Acid (Depakene) Lev maribell 03-10-2025 VALPROIC ACID 91 ug/mL Normal 50-100 [facility] Comment on above: Order Comment: Result Comment: Valp roic Acid concentrations >100 ug/mL are potentially toxic. Performed By: #### L 501.8100, L501.7700, L500.4050, L100.0100 #### [facility] [address] [place], [address] Anion gap in Serum or Plasma Ordered By: Todd Velasquez on 03-04-2025 Anion gap [Moles/Vol] 9 mmol/L 5-15 [facility] BUN/creatinine ratioOrdered By: Todd Velasquez on 03-04-2025 Urea nitrogen/Creatinine [Mass ratio] 22.8 mg/mg High 10-20 [facility] Bilirubin, totalOrdered By: Todd Velasquez on 03-04-2025 Bilirubin [Mass/Vol] 0.21 mg/dL 0.00-1.30 [facility] CBC-Complete Blood Cnt No Di ffon 03-04-2025 Erythrocyte distribution width (RBC) [Ratio] 14.5 % Normal 11.6-14.6 [facility] Comment on above: Order Comment: Performed By: #### L 501.8100, L501.7700, L500.4050, L100.0100 #### [facility] [address] [place], [address] Hematocrit (Bld) [Volume fraction] 30.2 % Low 37-47 [facility] Comment on above: Order Comment: 211-2 Performed By: #### L 501.8100, L501.7700, L500.4050, L100.0100 #### [facility] [address] [place], [address] Hemoglobin (Bld) [Mass/Vol] 9.6 g/dL Low 12.0-15.0 [facility] Comment on above: Order Comment: 211-2 Performed By: #### L 501.8100, L501.7700, L500.4050, L100.0100 #### [facility] [address] [place], [address] MCH (RBC) [Entitic mass] 28.2 pg Normal 27.0-32.0 [facility] Comment on above: Order Comment: 211-2 Performed By: #### L 501.8100, L501.7700, L500.4050, L100.0100 #### [facility] [address] [place], [address] MCHC (RBC) [Mass/Vol] 31.8 g/dL Low 32-36 [facility] Comment on above: Order Comment: 211-2 Performed By: #### L 501.8100, L501.7700, L500.4050, L100.0100 #### [facility] [address] [place], [address] MCV (RBC) [Entitic vol] 88.6 fL Normal 81-99 [facility] Comment on above: Order Comment: 211-2 Performed By: #### L 501.8100, L501.7700, L500.4050, L100.0100 #### [facility] [address] [place], [address] Platelet mean volume (Bld) [Entitic vol] 12.1 fL High 6.2-12.0 [facility] Comment on above: Order Comment: 211-2 Performed By: #### L 501.8100, L501.7700, L500.4050, L100.0100 #### [facility] [address] [place], [address] Platelets (Bld) [#/Vol] 186 10*3/uL Normal 150-450 [facility] Comment on above: Order Comment: 211-2 Performed By: #### L 501.8100, L501.7700, L500.4050, L100.0100 #### [facility] [address] [place], [address] RBC (Bld) [#/Vol] 3.41 10*6/uL Low 4.2-5.4 [facility] Comment on above: Order Comment: 211-2 Performed By: #### L 501.8100, L501.7700, L500.4050, L100.0100 #### [facility] [address] [place], [address] RDW SD 46.7 fl High 35.1-43.9 [facility] Comment on above: Order Comment: 211-2 Performed By: #### L 501.8100, L501.7700, L500.4050, L100.0100 #### [facility] [address] [place], [address] WBC (Bld) [#/Vol] 7.4 10*3/uL Normal 4.4-11.0 [facility] Comment on above: Order Comment: 211-2 Performed By: #### L 501.8100, L501.7700, L500.4050, L100.0100 #### [facility] [address] [place], [address] CNPAni 03-04-2025 DWAYNEN Telephone (RHWSTR) -------- KATHERYN CHINO ([id number]) 1945 F Date Time Provider Department 03/04/25 LOLITA JAINWSTR During your visit today, we recorded the following information about you: Lolita Jain PA-C 03/04/2025 4:50 PM Signed Labs dated 02/27/25 from [facility] CTX 197 SPEP - normal limits, no Mspike More labs to come Lolita Jain PA-C 03/05/2025 5:00 PM Signed Addtional labs: S Protein electrophoresis normal, no MSpike Ionized calcium 1.27 PTH 68 (high, ref 11-61) Phos 3.7 Mg 2.2 BMP Renal function Cr0.72 BUN 22 (H) Calcium 9.5 Vitamain D 46.9 Lolita Jain PA-C 03/05/2025 5:02 PM Signed Please call correction. She has elevated PTH. We should hold off on the Forteo until I can review with my colleague. Will reach out next week with additional recommendations. ANABELL Velazquez Amy M, MA 03/06/2025 9:08 AM Signed I called and spoke with Katia at [facility]. Message from Lolita Jain PA-C given and Katia verbalized understanding. Mary Ronquillo LPN 03/17/2025 2:25 PM Signed [facility] calling to see if there has been any updates regarding the Forteo or if there are any alternatives we should consider due to cost? Appears that [facility] did get precert approved through February 2027 and were waiting to contact [facility] due to PTH. ADIA Wilson Kaitlyn, PA-C [...] called and spoke with YVONNE Amaya at [facility]. Message given to her from provider and [...] message and orders to staff nurse at [facility]. Orders read back. MEGA Mast Danelle, RN [...] hormone [R79.89] Order(s):PTH INTACT [SQPTHI] Order #: [id number] FUTURE Prescriptions as of 04/15/2025 - insulin [...] mg/spray (0.1 mL) nasal spray Use 1 [place] in the nose as needed for seizures [...] - fu (more content not included)... Normal [facility] Carbon dioxide, total [Moles /volume] in Central venous bloodOrdered By: Todd Velasquez on 03-04-2025 CO2 [Moles/Vol] 24.0 mmol/L 21.0-32.0 [facility] Chloride assayOrdered By: Whitley on 03-04-2025 Chloride [Moles/Vol] 107 mmol/L 98-108 [facility] Comprehensive Metabolic Prof ilon 03-04-2025 Albumin [Mass/Vol] 3.7 g/dL Normal 3.4-4.8 [facility] Comment on above: Order Comment: 211-2 Performed By: #### L 501.8100, L501.7700, L500.4050, L100.0100 #### [facility] [address] [place], [address] Albumin/Globulin [Mass ratio] 1.2 {ratio} Normal 0.9-2.4 [facility] Comment on above: Order Comment: 211-2 Performed By: #### L 501.8100, L501.7700, L500.4050, L100.0100 #### [facility] [address] [place], [address] ALK PHOS 84 U/L Normal 35-104 [facility] Comment on above: Order Comment: 211-2 Performed By: #### L 501.8100, L501.7700, L500.4050, L100.0100 #### [facility] [address] [place], [address] ALT [Catalytic activity/Vol] 6 U/L Normal <=34 [facility] Comment on above: Order Comment: 211-2 Performed By: #### L 501.8100, L501.7700, L500.4050, L100.0100 #### [facility] [address] [place], [address] AST [Catalytic activity/Vol] 22 U/L Normal <=31 [facility] Comment on above: Order Comment: 211-2 Performed By: #### L 501.8100, L501.7700, L500.4050, L100.0100 #### [facility] [address] [place], [address] Bilirubin [Mass/Vol] 0.21 mg/dL Normal 0.00-1.30 [facility] Comment on above: Order Comment: 211-2 Performed By: #### L 501.8100, L501.7700, L500.4050, L100.0100 #### [facility] [address] [place], [address] BUN/CRE 22.8 RATIO High 10-20 [facility] Comment on above: Order Comment: 211-2 Performed By: #### L 501.8100, L501.7700, L500.4050, L100.0100 #### [facility] [address] [place], [address] Calcium [Mass/Vol] 9.1 mg/dL Normal 7.6-11.0 [facility] Comment on above: Order Comment: 211-2 Performed By: #### L 501.8100, L501.7700, L500.4050, L100.0100 #### [facility] [address] [place], [address] Chloride [Moles/Vol] 107 mmol/L Normal 98-108 [facility] Comment on above: Order Comment: 211-2 Performed By: #### L 501.8100, L501.7700, L500.4050, L100.0100 #### [facility] [address] [place], [address] CO2 [Moles/Vol] 24.0 mmol/L Normal 21.0-32.0 [facility] Comment on above: Order Comment: 211-2 Performed By: #### L 501.8100, L501.7700, L500.4050, L100.0100 #### [facility] [address] [place], [address] Creatinine [Mass/Vol] 0.74 mg/dL Normal 0.70-1.20 [facility] Comment on above: Order Comment: 211-2 Performed By: #### L 501.8100, L501.7700, L500.4050, L100.0100 #### [facility] [address] [place], [address] GAP 9 Normal 5-15 [facility] Comment on above: Order Comment: 211-2 Performed By: #### L 501.8100, L501.7700, L500.4050, L100.0100 #### [facility] [address] [place], [address] GFR/1.73 sq M.predicted among non-blacks MDRD (S/P/Bld) [Vol rate/Area] 83 mL/min/{1.73_m2} Normal >60 [facility] Comment on above: Order Comment: Result Comment: mL/m in/1.73m2 CKD-EPI Creatinine Equation (2020) Performed By: #### L 501.8100, L501.7700, L500.4050, L100.0100 #### [facility] [address] [place], [address] Globulin (S) [Mass/Vol] 3.1 g/dL Normal 2.2-4.2 [facility] Comment on above: Order Comment: -2 Performed By: #### L 501.8100, L501.7700, L500.4050, L100.0100 #### [facility] [address] [place], [address] Glucose [Mass/Vol] 93 mg/dL Normal 70-99 [facility] Comment on above: Order Comment: -2 Performed By: #### L 501.8100, L501.7700, L500.4050, L100.0100 #### [facility] [address] [place], [address] Potassium [Moles/Vol] 4.9 mmol/L Normal 3.3-5.1 [facility] Comment on above: Order Comment: 211-2 Performed By: #### L 501.8100, L501.7700, L500.4050, L100.0100 #### [facility] [address] [place], [address] Sodium [Moles/Vol] 140 mmol/L Normal 133-145 [facility] Comment on above: Order Comment: 211-2 Performed By: #### L 501.8100, L501.7700, L500.4050, L100.0100 #### [facility] [address] [place], [address] T PROT 6.7 g/dL Normal 5.9-8.4 [facility] Comment on above: Order Comment: 211-2 Performed By: #### L 501.8100, L501.7700, L500.4050, L100.0100 #### [facility] [address] [place], [address] Urea nitrogen [Mass/Vol] 17 mg/dL Normal 4-19 [facility] Comment on above: Order Comment: 211-2 Performed By: #### L 501.8100, L501.7700, L500.4050, L100.0100 #### [facility] [address] [place], [address] Erythrocyte distribution wid th ratioOrdered By: Todd Velasquez on 03-04-2025 Erythrocyte distribution width (RBC) [Ratio] 14.5 % 11.6-14.6 [facility] Erythrocyte distribution wid th standard deviationOrdered By: Todd Velasquez on 03-04-2025 Erythrocyte distribution width (RBC) [Ratio] 46.7 fl High 35.1-43.9 [facility] Glomerular filtration rate ( GFR) estimation/1.73 sq m using serum, plasma, or whole bOrdered By: Todd Velasquez on 03-04-2025 GFR/1.73 sq M.predicted among non-blacks MDRD (S/P/Bld) [Vol rate/Area] 83 mL/min/{1.73_m2} >60 [facility] Comment on above: mL/min/1.73m2 CKD-EP I Creatinine Equation (2020) Hematocrit Auto (Bld) [Volum e fraction]Ordered By: Todd Velasquez on 03-04-2025 Hematocrit (Bld) [Volume fraction] 30.2 % Low 37-47 [facility] Hemoglobin measurementOrdere d By: Todd Velasquez on 03-04-2025 Hemoglobin (Bld) [Mass/Vol] 9.6 g/dL Low 12.0-15.0 [facility] - Chemistry and C hemistry - challengeOrdered By: Todd Velasquez on 03-04-2025 AST [Catalytic activity/Vol] 22 U/L <32 [facility] MCV (mean corpuscular volume ) determinationOrdered By: Todd Velasquez on 03-04-2025 MCV (RBC) [Entitic vol] 88.6 fL 81-99 [facility] Mean corpuscular hemoglobin (MCH) determinationOrdered By: Todd Velasquez on 03-04-2025 MCH (RBC) [Entitic mass] 28.2 pg 27.0-32.0 [facility] Mean corpuscular hemoglobin concentration (MCHC) determinationOrdered By: Todd Velasquez on 03-04-2025 MCHC (RBC) [Mass/Vol] 31.8 g/dL Low 32-36 [facility] Mean platelet volume determi nationOrdered By: Todd Velasquez on 03-04-2025 Platelet mean volume (Bld) [Entitic vol] 12.1 fL High 6.2-12.0 [facility] Platelet countOrdered By: Whitley on 03-04-2025 Platelets (Bld) [#/Vol] 186 10*3/uL 150-450 [facility] Potassium measurement (mass/ volume)Ordered By: Todd Velasquez on 03-04-2025 Potassium (Unsp spec) [Mass/Vol] 4.9 mmol/L 3.3-5.1 [facility] RBC Auto (Bld) [#/Vol]Ordere d By: Todd Velasquez on 03-04-2025 RBC (Bld) [#/Vol] 3.41 10*6/uL Low 4.2-5.4 [facility] Serum creatinine measurement (mass/volume)Ordered By: Todd Velasquez on 03-04-2025 Creatinine [Mass/Vol] 0.74 mg/dL 0.70-1.20 [facility] Serum globulin measurementOr dered By: Todd Velasquez on 03-04-2025 Globulin (S) [Mass/Vol] 3.1 g/dL 2.2-4.2 [facility] Serum glucose measurement (m ass/volume)Ordered By: Todd Velasquez on 03-04-2025 Glucose [Mass/Vol] 93 mg/dL 70-99 [facility] Serum or plasma alanine ignacio otransferase (ALT) measurementOrdered By: Todd Velasquez on 03-04-2025 ALT [Catalytic activity/Vol] 6 U/L <35 [facility] Serum or plasma albumin jacob urement (mass/volume)Ordered By: Todd Velasquez on 03-04-2025 Albumin [Mass/Vol] 3.7 g/dL 3.4-4.8 [facility] Serum or plasma albumin/glob ulin mass ratioOrdered By: Todd Velasquez on 03-04-2025 Albumin/Globulin [Mass ratio] 1.2 {ratio} 0.9-2.4 [facility] Serum or plasma alkaline phillip sphatase measurementOrdered By: Todd Velasquez on 03-04-2025 ALP [Catalytic activity/Vol] 84 U/L 35-104 [facility] Serum or plasma calcium jacob urement (mass/volume)Ordered By: Todd Velasquez on 03-04-2025 Calcium [Mass/Vol] 9.1 mg/dL 7.6-11.0 [facility] Serum or plasma urea nitroge n measurement (mass/volume)Ordered By: Todd Velasquez on 03-04-2025 Urea nitrogen [Mass/Vol] 17 mg/dL 4-19 [facility] Sodium levelOrdered By: Todd Velasquez on 03-04-2025 Sodium [Moles/Vol] 140 mmol/L 133-145 [facility] Total proteinOrdered By: Ignacia Velasquez on 03-04-2025 Protein [Mass/Vol] 6.7 g/dL 5.9-8.4 [facility] White blood cell (WBC) count Ordered By: Todd Velasquez on 03-04-2025 WBC (Bld) [#/Vol] 7.4 10*3/uL 4.4-11.0 [facility] L3410.9992on 03-02-2025 [facility] Misc. COMMENT Normal . [facility] Comment on above: Order Comment: - Result Comment: Test Ordered: [id number] C-Telopeptide, Serum C-Telopeptide, Serum 197 pg/mL ES Reference Range: . Reference Range: Premenopausal Women: 34 - 635 Postmenopausal Women: 34 - 1037 Performed at: [facility] [address] [place] [id number] Corporate Ethics Officer: Felix Bonilla MD, Phone: [phone] Performed at: - [facility] [id number] Corporate Ethics Officer: Haris Peraza PhD, Phone: [phone] Performed By: #### L 501.8100, L501.7700, L500.4050, L100.0100 #### [facility] [address] [place], [address] Protein Electroph, Son 03-02 Albumin [Mass/Vol] 3.2 g/dL Normal 2.9-4.4 [facility] Comment on above: Order Comment: Performed By: #### L 501.8100, L501.7700, L500.4050, L100.0100 #### [facility] [address] [place], [address] Albumin/Globulin [Mass ratio] 0.9 {ratio} Normal 0.7-1.7 [facility] Comment on above: Order Comment: - Performed By: #### L 501.8100, L501.7700, L500.4050, L100.0100 #### [facility] [address] [place], [address] ALPHA-1 GLOBUL 0.2 g/dL Normal 0.0-0.4 [facility] Comment on above: Order Comment: - Performed By: #### L 501.8100, L501.7700, L500.4050, L100.0100 #### [facility] [address] [place], [address] ALPHA-2 GLOBUL 0.8 g/dL Normal 0.4-1.0 [facility] Comment on above: Order Comment: 211-2 Performed By: #### L 501.8100, L501.7700, L500.4050, L100.0100 #### [facility] [address] [place], [address] BETA GLOBULIN 1.2 g/dL Normal 0.7-1.3 [facility] Comment on above: Order Comment: 211-2 Performed By: #### L 501.8100, L501.7700, L500.4050, L100.0100 #### [facility] [address] [place], [address] GAMMA GLOBULIN 1.3 g/dL Normal 0.4-1.8 [facility] Comment on above: Order Comment: 211-2 Performed By: #### L 501.8100, L501.7700, L500.4050, L100.0100 #### [facility] [address] [place], [address] Globulin (S) [Mass/Vol] 3.5 g/dL Normal 2.2-3.9 [facility] Comment on above: Order Comment: 211-2 Performed By: #### L 501.8100, L501.7700, L500.4050, L100.0100 #### [facility] [address] [place], [address] INTERPRETATION Comment Normal . [facility] Comment on above: Order Comment: 211-2 Result Comment: Prot ein electrophoresis scan will follow via computer, mail, or chairman and chief executive officer delivery. Performed By: #### L 501.8100, L501.7700, L500.4050, L100.0100 #### [facility] [address] [place], [address] M-SPIKE Not Observed Normal Not Observed [facility] Comment on above: Order Comment: 211-2 Performed By: #### L 501.8100, L501.7700, L500.4050, L100.0100 #### [facility] [address] [place], [place], [id number] NOTE: Comment Normal . [facility] Comment on above: Order Comment: Result Comment: The SPE pattern appears unremarkable. Evidence of monoclonal protein is not apparent. Performed at: [address] [id number] Corporate Ethics Officer: Haris Peraza PhD, Phone: [phone] Performed By: #### L 501.8100, L501.7700, L500.4050, L100.0100 #### [facility] [address] [place], [place], [id number] Protein [Mass/Vol] 6.7 g/dL Normal 6.0-8.5 [facility] Comment on above: Order Comment: Performed By: #### L 501.8100, L501.7700, L500.4050, L100.0100 #### [facility] [address] [place], [place], [id number] Albumin Elph [Mass/Vol]Order ed By: Todd Velasquez on 02-27-2025 Albumin [Mass/Vol] 3.2 g/dL 2.9-4.4 [facility] Anion gap in Serum or Plasma Ordered By: Todd Velasquez on 02-27-2025 Anion gap [Moles/Vol] 10 mmol/L 02-26 [facility] BUN/creatinine ratioOrdered By: Todd Velasquez on 02-27-2025 Urea nitrogen/Creatinine [Mass ratio] 30.7 mg/mg High 08-03 [facility] Basic Metabolic Profile (BMP )on 02-27-2025 BUN/CRE 30.7 RATIO High 08-03 [facility] Comment on above: Order Comment: Performed By: #### L 501.8100, L501.7700, L500.4050, L100.0100 #### [facility] [address] [place], [address] Calcium [Mass/Vol] 9.5 mg/dL Normal 7.6-11.0 [facility] Comment on above: Order Comment: 211-2 Performed By: #### L 501.8100, L501.7700, L500.4050, L100.0100 #### [facility] [address] [place], [address] Chloride [Moles/Vol] 106 mmol/L Normal 98-108 [facility] Comment on above: Order Comment: 211-2 Performed By: #### L 501.8100, L501.7700, L500.4050, L100.0100 #### [facility] [address] [place], [address] CO2 [Moles/Vol] 21.8 mmol/L Normal 21.0-32.0 [facility] Comment on above: Order Comment: 211-2 Performed By: #### L 501.8100, L501.7700, L500.4050, L100.0100 #### [facility] [address] [place], [address] Creatinine [Mass/Vol] 0.72 mg/dL Normal 0.70-1.20 [facility] Comment on above: Order Comment: 211-2 Performed By: #### L 501.8100, L501.7700, L500.4050, L100.0100 #### [facility] [address] [place], [address] GAP 10 Normal 5-15 [facility] Comment on above: Order Comment: 211-2 Performed By: #### L 501.8100, L501.7700, L500.4050, L100.0100 #### [facility] [address] [place], [address] GFR/1.73 sq M.predicted among non-blacks MDRD (S/P/Bld) [Vol rate/Area] 86 mL/min/{1.73_m2} Normal >60 [facility] Comment on above: Order Comment: Result Comment: mL/m in/1.73m2 CKD-EPI Creatinine Equation (2020) Performed By: #### L 501.8100, L501.7700, L500.4050, L100.0100 #### [facility] [address] [place], [address] Glucose [Mass/Vol] 92 mg/dL Normal 70-99 [facility] Comment on above: Order Comment: -2 Performed By: #### L 501.8100, L501.7700, L500.4050, L100.0100 #### [facility] [address] [place], [address] Potassium [Moles/Vol] 4.7 mmol/L Normal 3.3-5.1 [facility] Comment on above: Order Comment: -2 Performed By: #### L 501.8100, L501.7700, L500.4050, L100.0100 #### [facility] [address] [place], [address] Sodium [Moles/Vol] 138 mmol/L Normal 133-145 [facility] Comment on above: Order Comment: -2 Performed By: #### L 501.8100, L501.7700, L500.4050, L100.0100 #### [facility] [address] [place], [address] Urea nitrogen [Mass/Vol] 22 mg/dL High 4-19 [facility] Comment on above: Order Comment: 211-2 Performed By: #### L 501.8100, L501.7700, L500.4050, L100.0100 #### [facility] [address] [place], [address] Carbon dioxide, total [Moles /volume] in Central venous bloodOrdered By: Todd Velasquez on 02-27-2025 CO2 [Moles/Vol] 21.8 mmol/L 21.0-32.0 [facility] Chloride assayOrdered By: Whitley on 02-27-2025 Chloride [Moles/Vol] 106 mmol/L 98-108 [facility] Glomerular filtration rate ( GFR) estimation/1.73 sq m using serum, plasma, or whole bOrdered By: Todd Velasquez on 02-27-2025 GFR/1.73 sq M.predicted among non-blacks MDRD (S/P/Bld) [Vol rate/Area] 86 mL/min/{1.73_m2} >60 [facility] Comment on above: mL/min/1.73m2 CKD-EP I Creatinine Equation (2020) L501.2276on 02-27-2025 Ionized Calcium 1.27 mmol/L Normal 1.09-1.30 [facility] Comment on above: Performed By: #### L 500.4050, L100.0500 #### [facility] [address] [place], [address] Magnesiumon 02-27-2025 Magnesium [Mass/Vol] 2.2 mg/dL Normal 1.5-2.2 [facility] Comment on above: Order Comment: 211-2 Performed By: #### L 501.8100, L501.7700, L500.4050, L100.0100 #### [facility] [address] [place], [address] Magnesium measurement (mass/ volume)Ordered By: Todd Velasquez on 02-27-2025 Magnesium (Unsp spec) [Mass/Vol] 2.2 mg/dL 1.5-2.2 [facility] No Panel InformationOrdered By: Todd Velasquez on 02-27-2025 Addendum Document Comment . [facility] Comment on above: The SPE pattern appe ars unremarkable. Evidence ofmonoclonal protein is not apparent.Performed at: [address] [id number] Director: Haris Peraza PhD, Phone: [phone] PTHINon 02-27-2025 PTH 68 pg/mL High 11-61 [facility] Comment on above: Performed By: #### L 501.8100, L501.7700, L500.4050, L100.0100 #### [facility] [address] [place], [address] Phosphoruson 02-27-2025 Phosphate [Mass/Vol] 3.7 mg/dL Normal 2.7-4.5 [facility] Comment on above: Order Comment: 211-2 Performed By: #### L 501.8100, L501.7700, L500.4050, L100.0100 #### [facility] [address] [place], [address] Potassium measurement (mass/ volume)Ordered By: Todd Velasquez on 02-27-2025 Potassium (Unsp spec) [Mass/Vol] 4.7 mmol/L 3.3-5.1 [facility] Protein Fractions Elph [Inte rp]Ordered By: Todd Velasquez on 02-27-2025 Protein Fractions [Interp] Comment . [facility] Comment on above: Protein electrophore sis scan will follow via computer,mail, or chairman and chief executive officer delivery. Serum albumin to globulin ra millicent by protein electrophoresisOrdered By: Todd Velasquez on 02-27-2025 Albumin/Globulin Elph [Mass ratio] 0.9 0.7-1.7 [facility] Serum creatinine measurement (mass/volume)Ordered By: Todd Velasquez on 02-27-2025 Creatinine [Mass/Vol] 0.72 mg/dL 0.70-1.20 [facility] Serum globulin measurement ( mass/volume)Ordered By: Todd Velasquez on 02-27-2025 Globulin (S) [Mass/Vol] 3.5 g/dL 2.2-3.9 [facility] Serum glucose measurement (m ass/volume)Ordered By: Todd Velasquez on 02-27-2025 Glucose [Mass/Vol] 92 mg/dL 70-99 [facility] Serum or plasma beta globuli n measurement by electrophoresis (mass/volume)Ordered By: Todd Velasquez on 02-27-2025 Beta globulin Elph [Mass/Vol] 1.2 g/dL 0.7-1.3 [facility] Serum or plasma calcium jacob urement (mass/volume)Ordered By: Todd Velasquez on 02-27-2025 Calcium [Mass/Vol] 9.5 mg/dL 7.6-11.0 [facility] Serum or plasma protein jacob urement (mass/volume)Ordered By: Todd Velasquez on 02-27-2025 Protein [Mass/Vol] 6.7 g/dL 6.0-8.5 [facility] Serum or plasma protein mono clonal measurement by electrophoresis (mass/volume)Ordered By: Todd Velasquez on 02-27-2025 Protein.monoclonal Elph [Mass/Vol] Not Observed g/dL Not Observed [facility] Serum or plasma urea nitroge n measurement (mass/volume)Ordered By: Todd Velasquez on 02-27-2025 Urea nitrogen [Mass/Vol] 22 mg/dL High 4-19 [facility] Sodium levelOrdered By: Todd Velasquez on 02-27-2025 Sodium [Moles/Vol] 138 mmol/L 133-145 [facility] Vitamin D,25 Hydroxyon 02-27 Vitamin D 25-OH 46.9 ng/mL Normal 30-100 [facility] Comment on above: Order Comment: 211-2 Result Comment: Valery min D Status Deficiency: <20 ng/mL (50nmol/L) Insufficiency: 20-30 ng/mL (50-75 nmol/L) Sufficiency: 30-100 ng/mL (75-250 nmol/L) Toxicity: >100 ng/mL (>250 nmol/L) Performed By: #### L 501.8100, L501.7700, L500.4050, L100.0100 #### [facility] [place] [place], [address] Kuldip 02-26-2025 LIBORIO Telephone (RHWSTR) -------- KATHERYN CHINO ([id number]) 1945 F Date Time Provider Department 02/26/25 LOLITA JAIN During your visit today, we recorded the following information about you: Felipa Zuñiga LPN 02/26/2025 11:50 AM Signed Bill from [facility] called into office requesting clarification of calcium citrate supplement. Per office note SHILO velazquez states "The recommendation is 6598-9364 mg of calcium daily between diet and supplement. If she continues to eat 3 servings of dairy per day, I recommend additional 600 mg daily via calcium citrate supplement. " Office note faxed to [facility]. Nurse states that patient in almost [...] 02/26/2025 2:55 PM Signed Hermann Avalos from [facility] called back. Message from Lolita Jain [...] mg/spray (0.1 mL) nasal spray Use 1 [place] in the nose as needed for seizures [...] Status:Closed by JACKI SUMNER on 02/26/25 Normal [facility] CNOVon 02-25-2025 CNOV Office Visit (WSTR ) -------- KATHERYN CHINO ([id number]) 1945 F Date Time Provider Department 02/25/25 [...] New Patient Last Rheumatology visit: None at [facility] Katheryn Chino is a 79 [...] years, Gender: Female SCANNER INFORMATION: DXA Model: [employer] - Vital Connect [id number] Date Scanned: 11/26/2024 11:08 AM CLINICAL HISTORY: 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 VERTEBRAL FRACTURE ASSESSMENT Not performed. TRABECULAR [...] for treatment. (more content not included)... Normal [facility] Anion gap in Serum or Plasma Ordered By: Todd Velasquez on 02-02-2025 Anion gap [Moles/Vol] 11 mmol/L - [facility] BUN/creatinine ratioOrdered By: Todd Velasquez on 02-02-2025 Urea nitrogen/Creatinine [Mass ratio] 20.1 mg/mg High 08-03 [facility] Basic Metabolic Profile (BMP )on 02-02-2025 BUN/CRE 20.1 RATIO High 08-03 [facility] Comment on above: Order Comment: [id number] Performed By: #### L 501.8100, L501.7700, L500.4050, L100.0100 #### [facility] [address] [place], [address] Calcium [Mass/Vol] 8.9 mg/dL Normal 7.6-11.0 [facility] Comment on above: Order Comment: 729 Performed By: #### L 501.8100, L501.7700, L500.4050, L100.0100 #### [facility] [address] [place], [address] Chloride [Moles/Vol] 105 mmol/L Normal 98-108 [facility] Comment on above: Order Comment: 729 Performed By: #### L 501.8100, L501.7700, L500.4050, L100.0100 #### [facility] [address] [place], [address] CO2 [Moles/Vol] 21.8 mmol/L Normal 21.0-32.0 [facility] Comment on above: Order Comment: 729 Performed By: #### L 501.8100, L501.7700, L500.4050, L100.0100 #### [facility] [address] [place], [address] Creatinine [Mass/Vol] 0.65 mg/dL Low 0.70-1.20 [facility] Comment on above: Order Comment: 729 Performed By: #### L 501.8100, L501.7700, L500.4050, L100.0100 #### [facility] [address] [place], [address] GAP 11 Normal 5-15 [facility] Comment on above: Order Comment: 729 Performed By: #### L 501.8100, L501.7700, L500.4050, L100.0100 #### [facility] [address] [place], [address] GFR/1.73 sq M.predicted among non-blacks MDRD (S/P/Bld) [Vol rate/Area] 91 mL/min/{1.73_m2} Normal >60 [facility] Comment on above: Order Comment: 729 Result Comment: mL/m in/1.73m2 CKD-EPI Creatinine Equation (2020) Performed By: #### L 501.8100, L501.7700, L500.4050, L100.0100 #### [facility] [address] [place], [address] Glucose [Mass/Vol] 85 mg/dL Normal 70-99 [facility] Comment on above: Order Comment: 729 Performed By: #### L 501.8100, L501.7700, L500.4050, L100.0100 #### [facility] [address] [place], [address] Potassium [Moles/Vol] 4.2 mmol/L Normal 3.3-5.1 [facility] Comment on above: Order Comment: 729 Performed By: #### L 501.8100, L501.7700, L500.4050, L100.0100 #### [facility] [address] [place], [address] Sodium [Moles/Vol] 138 mmol/L Normal 133-145 [facility] Comment on above: Order Comment: 729 Performed By: #### L 501.8100, L501.7700, L500.4050, L100.0100 #### [facility] [address] [place], [address] Urea nitrogen [Mass/Vol] 13 mg/dL Normal 4-19 [facility] Comment on above: Order Comment: 729 Performed By: #### L 501.8100, L501.7700, L500.4050, L100.0100 #### [facility] [address] [place], [address] Carbon dioxide, total [Moles /volume] in Central venous bloodOrdered By: Todd Velasquez on 02-02-2025 CO2 [Moles/Vol] 21.8 mmol/L 21.0-32.0 [facility] Chloride assayOrdered By: Whitley on 02-02-2025 Chloride [Moles/Vol] 105 mmol/L 98-108 [facility] GFR/1.73 sq M.predicted miguel g non-blacks MDRD (S/P/Bld) [Vol rate/Area]Ordered By: Todd Velasquez on 02-02-2025 Estimated GFR (MDRD) Non-Af Amer [address] >60 [facility] Comment on above: mL/min/1.73m2 CKD-EP I Creatinine Equation (2020) Glomerular filtration rate ( GFR) estimation/1.73 sq m using serum, plasma, or whole bOrdered By: Todd Velasquez on 02-02-2025 GFR/1.73 sq M.predicted among non-blacks MDRD (S/P/Bld) [Vol rate/Area] 91 mL/min/{1.73_m2} >60 [facility] Comment on above: mL/min/1.73m2 CKD-EP I Creatinine Equation (2020) Potassium (Unsp spec) [Mass/ Vol]Ordered By: Todd Velasquez on 02-02-2025 Potassium [Moles/Vol] 4.2 mmol/L 3.3-5.1 [facility] Potassium measurement (mass/ volume)Ordered By: Todd Velasquez on 02-02-2025 Potassium (Unsp spec) [Mass/Vol] 4.2 mmol/L 3.3-5.1 [facility] Serum creatinine measurement (mass/volume)Ordered By: Todd Velasquez on 02-02-2025 Creatinine [Mass/Vol] 0.65 mg/dL Low 0.70-1.20 [facility] Serum glucose measurement (m ass/volume)Ordered By: Todd Velasquez on 02-02-2025 Glucose [Mass/Vol] 85 mg/dL 70-99 [facility] Serum or plasma calcium jacob urement (mass/volume)Ordered By: Todd Velasquez on 02-02-2025 Calcium [Mass/Vol] 8.9 mg/dL 7.6-11.0 [facility] Serum or plasma urea nitroge n measurement (mass/volume)Ordered By: Todd Velasquez on 02-02-2025 Urea nitrogen [Mass/Vol] 13 mg/dL 4-19 [facility] Sodium levelOrdered By: Todd Velasquez on 02-02-2025 Sodium [Moles/Vol] 138 mmol/L 133-145 [facility] TSH DL <= 0.005 mIU/L QnOrde red By: Todd Velasquez on 01-28-2025 Thyroid Stimulating Hormone (TSH) 2.410 uIU/mL 0.300-4.[address] [facility] TSH Qn 2.410 uIU/mL 0.300-4.[address] [facility] Thyroid Stim Hormone (TSH)on 01-28-2025 TSH 2.410 uIU/mL Normal 0.300-4.[address] [facility] Comment on above: Order Comment: 729 Performed By: #### L 501.8100, L501.7700, L500.4050, L100.0100 #### [facility] [address] [place], [place], [id number] Anion gap in Serum or Plasma Ordered By: Todd Velasquez on 01-19-2025 Anion gap [Moles/Vol] 12 mmol/L 5-15 [facility] BUN/creatinine ratioOrdered By: Todd Velasquez on 01-19-2025 Urea nitrogen/Creatinine [Mass ratio] 20.6 mg/mg High 10-20 [facility] Basic Metabolic Profile (BMP )on 01-19-2025 BUN/CRE 20.6 RATIO High - [facility] Comment on above: Order Comment: 729 Performed By: #### L 501.8100, L501.7700, L500.4050, L100.0100 #### [facility] [address] [place], [address] Calcium [Mass/Vol] 9.1 mg/dL Normal 7.6-11.0 [facility] Comment on above: Order Comment: 729 Performed By: #### L 501.8100, L501.7700, L500.4050, L100.0100 #### [facility] [address] [place], [address] Chloride [Moles/Vol] 104 mmol/L Normal 98-108 [facility] Comment on above: Order Comment: 729 Performed By: #### L 501.8100, L501.7700, L500.4050, L100.0100 #### [facility] [address] [place], [address] CO2 [Moles/Vol] 20.1 mmol/L Low 21.0-32.0 [facility] Comment on above: Order Comment: 729 Performed By: #### L 501.8100, L501.7700, L500.4050, L100.0100 #### [facility] [address] [place], [address] Creatinine [Mass/Vol] 0.69 mg/dL Low 0.70-1.20 [facility] Comment on above: Order Comment: 729 Performed By: #### L 501.8100, L501.7700, L500.4050, L100.0100 #### [facility] [address] [place], [address] GAP 12 Normal 5-15 [facility] Comment on above: Order Comment: 729 Performed By: #### L 501.8100, L501.7700, L500.4050, L100.0100 #### [facility] [address] [place], [address] GFR/1.73 sq M.predicted among non-blacks MDRD (S/P/Bld) [Vol rate/Area] 89 mL/min/{1.73_m2} Normal >60 [facility] Comment on above: Order Comment: 729 Result Comment: mL/m in/1.73m2 CKD-EPI Creatinine Equation (2020) Performed By: #### L 501.8100, L501.7700, L500.4050, L100.0100 #### [facility] [address] [place], [address] Glucose [Mass/Vol] 94 mg/dL Normal 70-99 [facility] Comment on above: Order Comment: 729 Performed By: #### L 501.8100, L501.7700, L500.4050, L100.0100 #### [facility] [address] [place], [address] Potassium [Moles/Vol] 4.2 mmol/L Normal 3.3-5.1 [facility] Comment on above: Order Comment: 729 Performed By: #### L 501.8100, L501.7700, L500.4050, L100.0100 #### [facility] [address] [place], [address] Sodium [Moles/Vol] 136 mmol/L Normal 133-145 [facility] Comment on above: Order Comment: 729 Performed By: #### L 501.8100, L501.7700, L500.4050, L100.0100 #### [facility] [address] [place], [address] Urea nitrogen [Mass/Vol] 14 mg/dL Normal 4-19 [facility] Comment on above: Order Comment: 729 Performed By: #### L 501.8100, L501.7700, L500.4050, L100.0100 #### [facility] [address] [place], [address] CBC-Complete Blood Cnt No Di ffon 01-19-2025 Erythrocyte distribution width (RBC) [Ratio] 14.1 % Normal 11.6-14.6 [facility] Comment on above: Order Comment: 729 Performed By: #### L 501.8100, L501.7700, L500.4050, L100.0100 #### [facility] [address] [place], [address] Hematocrit (Bld) [Volume fraction] 33.3 % Low 37-47 [facility] Comment on above: Order Comment: 729 Performed By: #### L 501.8100, L501.7700, L500.4050, L100.0100 #### [facility] [address] [place], [address] Hemoglobin (Bld) [Mass/Vol] 10.8 g/dL Low 12.0-15.0 [facility] Comment on above: Order Comment: 729 Performed By: #### L 501.8100, L501.7700, L500.4050, L100.0100 #### [facility] [address] [place], [address] MCH (RBC) [Entitic mass] 28.3 pg Normal 27.0-32.0 [facility] Comment on above: Order Comment: 729 Performed By: #### L 501.8100, L501.7700, L500.4050, L100.0100 #### [facility] [address] [place], [address] MCHC (RBC) [Mass/Vol] 32.4 g/dL Normal 32-36 [facility] Comment on above: Order Comment: 729 Performed By: #### L 501.8100, L501.7700, L500.4050, L100.0100 #### [facility] [address] [place], [address] MCV (RBC) [Entitic vol] 87.4 fL Normal 81-99 [facility] Comment on above: Order Comment: 729 Performed By: #### L 501.8100, L501.7700, L500.4050, L100.0100 #### [facility] [address] [place], [address] Platelet mean volume (Bld) [Entitic vol] 12.3 fL High 6.2-12.0 [facility] Comment on above: Order Comment: 729 Performed By: #### L 501.8100, L501.7700, L500.4050, L100.0100 #### [facility] [address] [place], [address] Platelets (Bld) [#/Vol] 193 10*3/uL Normal 150-450 [facility] Comment on above: Order Comment: 729 Performed By: #### L 501.8100, L501.7700, L500.4050, L100.0100 #### [facility] [address] [place], [address] RBC (Bld) [#/Vol] 3.81 10*6/uL Low 4.2-5.4 [facility] Comment on above: Order Comment: 729 Performed By: #### L 501.8100, L501.7700, L500.4050, L100.0100 #### [facility] [address] [place], [address] RDW SD 45.1 fl High 35.1-43.9 [facility] Comment on above: Order Comment: 729 Performed By: #### L 501.8100, L501.7700, L500.4050, L100.0100 #### [facility] [address] [place], [address] WBC (Bld) [#/Vol] 6.3 10*3/uL Normal 4.4-11.0 [facility] Comment on above: Order Comment: 729 Performed By: #### L 501.8100, L501.7700, L500.4050, L100.0100 #### [facility] [address] [place], [place], [id number] Carbon dioxide, total [Moles /volume] in Central venous bloodOrdered By: oTdd Velasquez on 01-19-2025 CO2 [Moles/Vol] 20.1 mmol/L Low 21.0-32.0 [facility] Chloride assayOrdered By: Whitley on 01-19-2025 Chloride [Moles/Vol] 104 mmol/L 98-108 [facility] Erythrocyte distribution wid th (RBC) [Ratio]Ordered By: Todd Velasquez on 01-19-2025 Erythrocyte distribution width (RBC) [Entitic vol] 45.1 fL High 35.1-43.9 [facility] Erythrocyte distribution wid th ratioOrdered By: Todd Velasquez on 01-19-2025 Erythrocyte distribution width (RBC) [Ratio] 14.1 % 11.6-14.6 [facility] Erythrocyte distribution wid th standard deviationOrdered By: Todd Velasquez on 01-19-2025 Erythrocyte distribution width (RBC) [Ratio] 45.1 fl High 35.1-43.9 [facility] GFR/1.73 sq M.predicted miguel g non-blacks MDRD (S/P/Bld) [Vol rate/Area]Ordered By: Todd Velasquez on 01-19-2025 Estimated GFR (MDRD) Non-Af Amer [address] [facility] Comment on above: mL/min/1.73m2 CKD-EP I Creatinine Equation (2020) Glomerular filtration rate ( GFR) estimation/1.73 sq m using serum, plasma, or whole bOrdered By: Todd Velasquez on 01-19-2025 GFR/1.73 sq M.predicted among non-blacks MDRD (S/P/Bld) [Vol rate/Area] 89 mL/min/{1.73_m2} >60 [facility] Comment on above: mL/min/1.73m2 CKD-EP I Creatinine Equation (2020) Hematocrit Auto (Bld) [Volum e fraction]Ordered By: Todd Velasquez on 01-19-2025 Hematocrit (Bld) [Volume fraction] 33.3 % Low 37-47 [facility] Hemoglobin measurementOrdere d By: Todd Velasquez on 01-19-2025 Hemoglobin (Bld) [Mass/Vol] 10.8 g/dL Low 12.0-15.0 [facility] MCV (mean corpuscular volume ) determinationOrdered By: Todd Velasquez on 01-19-2025 MCV (RBC) [Entitic vol] 87.4 fL 81-99 [facility] Mean corpuscular hemoglobin (MCH) determinationOrdered By: Todd Velasquez on 01-19-2025 MCH (RBC) [Entitic mass] 28.3 pg 27.0-32.0 [facility] Mean corpuscular hemoglobin concentration (MCHC) determinationOrdered By: Todd Velasquez on 01-19-2025 MCHC (RBC) [Mass/Vol] 32.4 g/dL 32-36 [facility] Mean platelet volume determi nationOrdered By: Todd Velasquez on 01-19-2025 Platelet mean volume (Bld) [Entitic vol] 12.3 fL High 6.2-12.0 [facility] Platelet countOrdered By: Whitley on 01-19-2025 Platelets (Bld) [#/Vol] 193 10*3/uL 150-450 [facility] Potassium (Unsp spec) [Mass/ Vol]Ordered By: Todd Velasquez on 01-19-2025 Potassium [Moles/Vol] 4.2 mmol/L 3.3-5.1 [facility] Potassium measurement (mass/ volume)Ordered By: Todd Velasquez on 01-19-2025 Potassium (Unsp spec) [Mass/Vol] 4.2 mmol/L 3.3-5.1 [facility] RBC Auto (Bld) [#/Vol]Ordere d By: Todd Velasquez on 01-19-2025 RBC (Bld) [#/Vol] 3.81 10*6/uL Low 4.2-5.4 [facility] Serum creatinine measurement (mass/volume)Ordered By: Todd Velasquez on 01-19-2025 Creatinine [Mass/Vol] 0.69 mg/dL Low 0.70-1.20 [facility] Serum glucose measurement (m ass/volume)Ordered By: Todd Velasquez on 01-19-2025 Glucose [Mass/Vol] 94 mg/dL 70-99 [facility] Serum or plasma calcium jacob urement (mass/volume)Ordered By: Todd Velasquez on 01-19-2025 Calcium [Mass/Vol] 9.1 mg/dL 7.6-11.0 [facility] Serum or plasma urea nitroge n measurement (mass/volume)Ordered By: Todd Velasquez on 01-19-2025 Urea nitrogen [Mass/Vol] 14 mg/dL 4-19 [facility] Sodium levelOrdered By: Todd Velasquez on 01-19-2025 Sodium [Moles/Vol] 136 mmol/L 133-145 [facility] White blood cell (WBC) count Ordered By: Todd Velasquez on 01-19-2025 WBC (Bld) [#/Vol] 6.3 10*3/uL 4.4-11.0 [facility] CNPNon 01-16-2025 CNPN Telephone (NE50MN) -------- KATHERYN CHINO ([id number]) 1945 F Date Time Provider Department 01/16/25 JAYANT JIMENEZ NE50MN During your visit today, we recorded the following information about you: Naheed Guallpa 01/16/2025 12:38 PM Signed Medication Concern Person Calling Katia Nurse from custodial Name of medication Lacosamide Concern with medication They have Katheryn taking 100MG in the morning and 50 mg at night. Per yesterdays appointment it states 150mg at time time. What one should they do ? Patient of Dr. Sandra Squires RN 01/16/2025 4:48 PM Signed 01/15/2025 OV [...] mg/spray (0.1 mL) nasal spray Use 1 [place] in the nose as needed for seizures [...] care, counseling/d (more content not included)... Normal [facility] CNOVon 01-15-2025 CNOV Office Visit (NEEPBA ) -------- KATHERYN CHINO ([id number]) 1945 F Date Time Provider Department 01/15/25 8:00 AM AJYANT JIMENEZ During your visit today, we recorded [...] Seizure precautions - No driving in the [facility] until seizure free for 6 months. [...] factor. Jayant Jimenez MD Associate Staff, Epilepsy [facility] January 15, 2025 Office phone: [phone] Jayant Jimenez MD 01/15/2025 8:54 AM Signed [facility] Patient Name: Katheryn Chino Date of : 1945 ESTABLISHED EPILEPSY CLINIC NOTE 01/15/2025 8:00 AM Reason for Visit: Follow Up and Epilepsy Clinical Summary: Ms. Chino is a 79 year old female seen in [facility]. At today's visit, [...] with AEDs . She moved to a [place] and she has more suervison with AEDs now. 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 She had good seizure control for a few years until covid. Hospitaltization in Aug 2024 for a prolonged GTCS at the facility ( brother reports it lasted ~ 25 mins). Admitted to [facility] where Dilantin and Depakote levels were low. [...] on 12-26-2024 Valproate [Mass/Vol] 91 ug/mL 50-100 [facility] Comment on above: Valproic Acid concen trations >100 ug/mL are potentially toxic. Valproate [Mass/Vol]Ordered By: Todd Velasquez on 12-26-2024 Valproic Acid (Depakene) Level 91 ug/mL 50-100 [facility] Comment on above: Valproic Acid concen trations >100 ug/mL are potentially toxic. Valproic Acid (Depakene) Lev maribell 12-26-2024 VALPROIC ACID 91 ug/mL Normal 50-100 [facility] Comment on above: Order Comment: 211.2 Result Comment: Valp roic Acid concentrations >100 ug/mL are potentially toxic. Performed By: #### L 501.8100 #### [facility] [address] [place], [address] CNPAni 12-24-2024 DWAYNEN Telephone (NEUSES) -------- KATHERYN CHINO ([id number]) 1945 F Date Time Provider Department 12/24/24 JAYANT JIMENEZ During your visit today, we recorded the following information about you: Franchesca Arana 12/24/2024 8:57 AM Signed ORDERS Person requesting order: [facility] Phone number: [phone] Order being requested: Facility: [facility] Patient of Dr. Jimenez Forwarded to Silvia Shelley RN 12/24/2024 2:24 PM Signed Spoke with nurse Becker at [facility]. See 12/23/24 encounter. Silvia Rogers RN Allergies As of Date: 12/24/2024 (No Known Allergies) Date Reviewed: 09/24/2024 Reviewed by: Shalini Montana LPN - Fully Assessed Reason for Visit: Orders [411] Cmt: [facility] Prescriptions as of 12/24/2024 - midazolam (NAYZILAM) 5 mg/spray (0.1 mL) nasal spray Use 1 [place] in the nose as needed for seizures [...] Encounter Status:Closed by SILVIA ROGERS on 12/24/24 [facility] (NE[facility] -------- KATHERYN CHINO ([id number]) 1945 F Date Time Provider Department 12/23/24 JAYANT JIMENEZ NE50MN During your visit today, we recorded the following information about you: Chandni Hull 12/23/2024 2:21 PM Signed Medication Concern Person Calling Rosita Cornejo, from [facility], ask for Yeni's nurse Name of medication [...] spray 2 Each 1 Sig: Use 1 [place] in the nose as needed for seizures lasting longer than 3 minutes. May repeat dose once after 4 hours based on response and tolerability for a maximum of 2 doses per 24-hour period. Authorizing Provider: ARTIS HAMILTON APRN.Silvia Willis RN 12/25/2024 2:36 PM Signed [facility]alt[employer] Rx faxed via [employer] to: [facility] PH: [phone] FAX : [phone] Confirmation received. Called the facility, spoke with Monique. They received the Valtoco Rx, facility paid $700. Silvia Rogers RN Allergies As of Date: 12/23/2024 (No Known Allergies) Date Reviewed: 09/24/2024 Reviewed by: Shalini Montana LPN - Fully Assessed Reason for Visit: Medication Problem [65] Cmt: Nayzilam - Medication Not Working Primary Visit Diagnosis:Intractable epilepsy without status epilepticus, unspecified epilepsy type ([facility]) [G40.919] Order(s):diazePAM (VALTOCO) 10 mg/spray (0.1 mL) nasal sprayUse 1 [place] in the nose as needed for seizures lasting longer than 3 minutes. May repeat dose once after 4 hours based on response and tolerability for a maximum of 2 doses per 24-hour period.Disp: 2 EachRfl: 1 Prescriptions as of 12/25/2024 - diazePAM (VALTOCO) 10 mg/spray (0.1 mL) nasal spray Use 1 [place] in the nose as needed for seizures [...] - d (more content not included)... [facility] 12-19-2024 DWAYNEN Telephone ([id number]) -------- KATHERYN CHINO ([id number]) 1945 F Date Time Provider Department 12/19/24 JAYANT JIMENEZ NE50MN During your visit today, we recorded the following information about you: Yocasta Rivers 12/19/2024 12:37 PM Signed OUTSIDE LAB REPORT FACILITY NAME [facility] PHONE/FAX COLLECTION DATE AND TIME: 12/15/24 540 Uploaded to [facility] Silvia Rogers RN 12/19/2024 12:53 PM Signed Current LCM dose 100/150 Forwarded to [facility] [address] [place] for review. MEGA Christianson Kelly, APRN.DWAYNE 12/19/2024 [...] mg/spray (0.1 mL) nasal spray Use 1 [place] in the nose as needed for seizures [...] Status:Closed by SILVIA ROGERS on 12/24/24 Normal [facility] [id number] 12-19-2024 [facility] Misc. COMMENT Normal . [facility] Comment on above: Order Comment: 211-1 Result Comment: Test Ordered: [id number] Lacosamide Test(s) 272610-Aisdoszszk was developed and its performance characteristics determined by [employer]. It has not been cleared or approved by the Food and Drug Administration. Lacosamide 4.6 [L ] ug/mL Reference Range: 5.0-10.0 Limit of Detection 0.5 Mean plasma concentrations following maintenance dose 200 mg/day 4.99 +/- 2.51 ug/mL 400 mg/day 9.35 +/- 4.22 ug/mL 600 mg/day 12.46 +/- 5.60 ug/mL Performed at: [facility] [address] [id number] Corporate Ethics Officer: Nahed Naidu MD, Phone: [phone] Performed at: [facility] [address] [id number] Corporate Ethics Officer: Haris Peraza PhD, Phone: [phone] Performed By: #### L 500.4050, L100.0500 #### [facility] [address] [place], [address] BUN/creatinine ratioOrdered By: Todd Velasquez on 12-15-2024 Urea nitrogen/Creatinine [Mass ratio] 17.8 mg/mg 10-20 [facility] Bilirubin, totalOrdered By: Todd Velasquez on 12-15-2024 Bilirubin [Mass/Vol] 0.24 mg/dL 0.00-1.30 [facility] CBC-Complete Blood Cnt No Di ffon 12-15-2024 Erythrocyte distribution width (RBC) [Ratio] 13.6 % Normal 11.6-14.6 [facility] Comment on above: Order Comment: - Performed By: #### L 500.4050, L100.0500 #### [facility] [address] [place], [place], [address] Hematocrit (Bld) [Volume fraction] 31.6 % Low 37-47 [facility] Comment on above: Order Comment: Performed By: #### L 500.4050, L100.0500 #### [facility] [address] [place] [place], [address] Hemoglobin (Bld) [Mass/Vol] 9.8 g/dL Low 12.0-15.0 [facility] Comment on above: Order Comment: - Performed By: #### L 500.4050, L100.0500 #### [facility] [address] [place], [address] MCH (RBC) [Entitic mass] 28.2 pg Normal 27.0-32.0 [facility] Comment on above: Order Comment: - Performed By: #### L 500.4050, L100.0500 #### [facility] [address] [place], [address] MCHC (RBC) [Mass/Vol] 31.0 g/dL Low 32-36 [facility] Comment on above: Order Comment: - Performed By: #### L 500.4050, L100.0500 #### [facility] [address] [place], [address] MCV (RBC) [Entitic vol] 91.1 fL Normal 81-99 [facility] Comment on above: Order Comment: - Performed By: #### L 500.4050, L100.0500 #### [facility] [address] [place], [address] Platelet mean volume (Bld) [Entitic vol] 12.7 fL High 6.2-12.0 [facility] Comment on above: Order Comment: - Performed By: #### L 500.4050, L100.0500 #### [facility] [address] [place], [address] Platelets (Bld) [#/Vol] 194 10*3/uL Normal 150-450 [facility] Comment on above: Order Comment: - Performed By: #### L 500.4050, L100.0500 #### [facility] [address] [place], [address] RBC (Bld) [#/Vol] 3.47 10*6/uL Low 4.2-5.4 [facility] Comment on above: Order Comment: Performed By: #### L 500.4050, L100.0500 #### [facility] [address] [place], [address] RDW SD 45.2 fl High 35.1-43.9 [facility] Comment on above: Order Comment: Performed By: #### L 500.4050, L100.0500 #### [facility] [address] [place], [address] WBC (Bld) [#/Vol] 7.1 10*3/uL Normal 4.4-11.0 [facility] Comment on above: Order Comment: Performed By: #### L 500.4050, L100.0500 #### [facility] [address] [place], [address] Carbon dioxide measurementOr dered By: Todd Velasquez on 12-15-2024 CO2 [Moles/Vol] 23.3 mmol/L 22.0-29.0 [facility] Chloride measurementOrdered By: Todd Velasquez on 12-15-2024 Chloride [Moles/Vol] 105 mmol/L 96-108 [facility] Comprehensive Metabolic Prof ilon 12-15-2024 Albumin [Mass/Vol] 3.8 g/dL Normal 3.4-4.8 [facility] Comment on above: Order Comment: Performed By: #### L 500.4050, L100.0500 #### [facility] [address] [place], [address] Albumin/Globulin [Mass ratio] 1.3 {ratio} Normal 0.9-2.4 [facility] Comment on above: Order Comment: Performed By: #### L 500.4050, L100.0500 #### [facility] [address] [place], [address] ALK PHOS 121 U/L High 35-104 [facility] Comment on above: Order Comment: 211-1 Performed By: #### L 500.4050, L100.0500 #### [facility] [address] [place], [address] ALT [Catalytic activity/Vol] 16 U/L Normal <=34 [facility] Comment on above: Order Comment: - Performed By: #### L 500.4050, L100.0500 #### [facility] [address] [place], [address] Anion gap [Moles/Vol] 9 mmol/L Normal 5-15 [facility] Comment on above: Order Comment: - Performed By: #### L 500.4050, L100.0500 #### [facility] [address] [place], [address] AST [Catalytic activity/Vol] 28 U/L Normal <=31 [facility] Comment on above: Order Comment: - Performed By: #### L 500.4050, L100.0500 #### [facility] [address] [place], [address] Bilirubin [Mass/Vol] 0.24 mg/dL Normal 0.00-1.30 [facility] Comment on above: Order Comment: -1 Performed By: #### L 500.4050, L100.0500 #### [facility] [address] [place], [address] BUN/CRE 17.8 RATIO Normal 10-20 [facility] Comment on above: Order Comment: 211-1 Performed By: #### L 500.4050, L100.0500 #### [facility] [address] [place], [address] Calcium [Mass/Vol] 9.1 mg/dL Normal 7.6-11.0 [facility] Comment on above: Order Comment: Performed By: #### L 500.4050, L100.0500 #### [facility] [address] [place], [address] Chloride [Moles/Vol] 105 mmol/L Normal 96-108 [facility] Comment on above: Order Comment: Performed By: #### L 500.4050, L100.0500 #### [facility] [address] [place], [address] CO2 [Moles/Vol] 23.3 mmol/L Normal 22.0-29.0 [facility] Comment on above: Order Comment: Performed By: #### L 500.4050, L100.0500 #### [facility] [address] [place], [address] Creatinine [Mass/Vol] 0.61 mg/dL Low 0.70-1.20 [facility] Comment on above: Order Comment: Performed By: #### L 500.4050, L100.0500 #### [facility] [address] [place], [address] GFR/1.73 sq M.predicted among non-blacks MDRD (S/P/Bld) [Vol rate/Area] 92 mL/min/{1.73_m2} Normal >60 [facility] Comment on above: Order Comment: Result Comment: mL/m in/1.73m2 CKD-EPI Creatinine Equation (2020) Performed By: #### L 500.4050, L100.0500 #### [facility] [address] [place], [address] Globulin (S) [Mass/Vol] 3.0 g/dL Normal 2.2-4.2 [facility] Comment on above: Order Comment: - Performed By: #### L 500.4050, L100.0500 #### [facility] [address] [place], [address] Glucose [Mass/Vol] 90 mg/dL Normal 70-99 [facility] Comment on above: Order Comment: - Performed By: #### L 500.4050, L100.0500 #### [facility] [address] [place], [address] Potassium [Moles/Vol] 4.8 mmol/L Normal 3.3-5.1 [facility] Comment on above: Order Comment: - Performed By: #### L 500.4050, L100.0500 #### [facility] [address] [place], [address] Sodium [Moles/Vol] 137 mmol/L Normal 133-145 [facility] Comment on above: Order Comment: - Performed By: #### L 500.4050, L100.0500 #### [facility] [address] [place], [address] T PROT 6.8 g/dL Normal 5.9-8.4 [facility] Comment on above: Order Comment: - Performed By: #### L 500.4050, L100.0500 #### [facility] [address] [place], [address] Urea nitrogen [Mass/Vol] 11 mg/dL Normal 4-19 [facility] Comment on above: Order Comment: - Performed By: #### L 500.4050, L100.0500 #### [facility] [address] [place], [address] Erythrocyte distribution wid th (RBC) [Ratio]Ordered By: Todd Velasquez on 12-15-2024 Erythrocyte distribution width (RBC) [Entitic vol] 45.2 fL High 35.1-43.9 [facility] Erythrocyte distribution wid th ratioOrdered By: Todd Velasquez on 12-15-2024 Erythrocyte distribution width (RBC) [Ratio] 13.6 % 11.6-14.6 [facility] Erythrocyte distribution wid th standard deviationOrdered By: Todd Velasquez on 12-15-2024 Erythrocyte distribution width (RBC) [Ratio] 45.2 fl High 35.1-43.9 [facility] GFR/1.73 sq M.predicted miguel g non-blacks MDRD (S/P/Bld) [Vol rate/Area]Ordered By: Todd Velasquez on 12-15-2024 Estimated GFR (MDRD) Non-Af Amer [address] >60 [facility] Comment on above: mL/min/1.73m2 CKD-EP I Creatinine Equation (2020) Glomerular filtration rate ( GFR) estimation/1.73 sq m using serum, plasma, or whole bOrdered By: Todd Velasquez on 12-15-2024 GFR/1.73 sq M.predicted among non-blacks MDRD (S/P/Bld) [Vol rate/Area] 92 mL/min/{1.73_m2} >60 [facility] Comment on above: mL/min/1.73m2 CKD-EP I Creatinine Equation (2020) Hematocrit Auto (Bld) [Volum e fraction]Ordered By: Todd Velasquez on 12-15-2024 Hematocrit (Bld) [Volume fraction] 31.6 % Low 37-47 [facility] Hemoglobin measurementOrdere d By: Todd Velasquez on 12-15-2024 Hemoglobin (Bld) [Mass/Vol] 9.8 g/dL Low 12.0-15.0 [facility] - Chemistry and C hemistry - challengeOrdered By: Todd Velasquez on 12-15-2024 AST [Catalytic activity/Vol] 28 U/L <32 [facility] MCV (mean corpuscular volume ) determinationOrdered By: Todd Velasquez on 12-15-2024 MCV (RBC) [Entitic vol] 91.1 fL 81-99 [facility] Mean corpuscular hemoglobin (MCH) determinationOrdered By: Todd Velasquez on 12-15-2024 MCH (RBC) [Entitic mass] 28.2 pg 27.0-32.0 [facility] Mean corpuscular hemoglobin concentration (MCHC) determinationOrdered By: Todd Velasquez on 12-15-2024 MCHC (RBC) [Mass/Vol] 31.0 g/dL Low 32-36 [facility] Mean platelet volume determi nationOrdered By: Todd Velasquez on 12-15-2024 Platelet mean volume (Bld) [Entitic vol] 12.7 fL High 6.2-12.0 [facility] Platelet countOrdered By: Whitley on 12-15-2024 Platelets (Bld) [#/Vol] 194 10*3/uL 150-450 [facility] RBC Auto (Bld) [#/Vol]Ordere d By: Todd Velasquez on 12-15-2024 RBC (Bld) [#/Vol] 3.47 10*6/uL Low 4.2-5.4 [facility] Serum creatinine measurement (mass/volume)Ordered By: Todd Velasquez on 12-15-2024 Creatinine [Mass/Vol] 0.61 mg/dL Low 0.70-1.20 [facility] Serum globulin measurementOr dered By: Todd Velasquez on 12-15-2024 Globulin (S) [Mass/Vol] 3.0 g/dL 2.2-4.2 [facility] Serum glucose measurement (m ass/volume)Ordered By: Todd Velasquez on 12-15-2024 Glucose [Mass/Vol] 90 mg/dL 70-99 [facility] Serum or plasma alanine ignacio otransferase (ALT) measurementOrdered By: Todd Velasquez on 12-15-2024 ALT [Catalytic activity/Vol] 16 U/L <35 [facility] Serum or plasma albumin jacob urement (mass/volume)Ordered By: Todd Velasquez on 12-15-2024 Albumin [Mass/Vol] 3.8 g/dL 3.4-4.8 [facility] Serum or plasma albumin/glob ulin mass ratioOrdered By: Todd Velasquez on 12-15-2024 Albumin/Globulin [Mass ratio] 1.3 {ratio} 0.9-2.4 [facility] Serum or plasma alkaline phillip sphatase measurementOrdered By: Todd Velasquez on 12-15-2024 ALP [Catalytic activity/Vol] 121 U/L High 35-104 [facility] Serum or plasma anion gap de termination (moles/volume)Ordered By: Todd Velasquez on 12-15-2024 Anion gap [Moles/Vol] 9 mmol/L 5-15 [facility] Serum or plasma calcium jacob urement (mass/volume)Ordered By: Todd Velasquez on 12-15-2024 Calcium [Mass/Vol] 9.1 mg/dL 7.6-11.0 [facility] Serum or plasma potassium me asurementOrdered By: Todd Velasquez on 12-15-2024 Potassium [Moles/Vol] 4.8 mmol/L 3.3-5.1 [facility] Serum or plasma sodium measu rement (moles/volume)Ordered By: Todd Velasquez on 12-15-2024 Sodium [Moles/Vol] 137 mmol/L 133-145 [facility] Serum or plasma urea nitroge n measurement (mass/volume)Ordered By: Todd Velasquez on 12-15-2024 Urea nitrogen [Mass/Vol] 11 mg/dL 4-19 [facility] Serum or plasma valproate me asurement (mass/volume)Ordered By: Todd Velasquez on 12-15-2024 Valproate [Mass/Vol] 40 ug/mL Low 50-100 [facility] Comment on above: Valproic Acid concen trations >100 ug/mL are potentially toxic. TSH DL <= 0.005 mIU/L QnOrde red By: Todd Velasquez on 12-15-2024 Thyroid Stimulating Hormone (TSH) 4.640 uIU/mL High 0.300-4.[address] [facility] TSH Qn 4.640 uIU/mL High 0.300-4.[address] [facility] Thyroid Stim Hormone (TSH)on 12-15-2024 TSH 4.640 uIU/mL High 0.300-4.[address] [facility] Comment on above: Order Comment: 211-1 Performed By: #### L 500.9950, L100.0500 #### [facility] [address] [place], [address] Total proteinOrdered By: Ignacia Velasquez on 12-15-2024 Protein [Mass/Vol] 6.8 g/dL 5.9-8.4 [facility] Valproate [Mass/Vol]Ordered By: Todd Velasquez on 12-15-2024 Valproic Acid (Depakene) Level 40 ug/mL Low 50-100 [facility] Comment on above: Valproic Acid concen trations >100 ug/mL are potentially toxic. Valproic Acid (Depakene) Lev maribell 12-15-2024 VALPROIC ACID 40 ug/mL Low 50-100 [facility] Comment on above: Order Comment: Result Comment: Valp roic Acid concentrations >100 ug/mL are potentially toxic. Performed By: #### L 500.4050, L100.0500 #### [facility] [address] [place], [address] White blood cell (WBC) count Ordered By: Todd Velasquez on 12-15-2024 WBC (Bld) [#/Vol] 7.1 10*3/uL 4.4-11.0 [facility] BUN/creatinine ratioOrdered By: Todd Velasquez on 12-10-2024 Urea nitrogen/Creatinine [Mass ratio] 20.4 mg/mg High 10-20 [facility] Bilirubin, totalOrdered By: Todd Velasquez on 12-10-2024 Bilirubin [Mass/Vol] 0.21 mg/dL 0.00-1.30 [facility] CBC-Complete Blood Cnt No Di ffon 12-10-2024 Erythrocyte distribution width (RBC) [Ratio] 13.2 % Normal 11.6-14.6 [facility] Comment on above: Order Comment: Performed By: #### L 500.4050, L100.0500 #### [facility] [address] [place], [address] Hematocrit (Bld) [Volume fraction] 31.1 % Low 37-47 [facility] Comment on above: Order Comment: -1 Performed By: #### L 500.4050, L100.0500 #### [facility] [address] [place], [address] Hemoglobin (Bld) [Mass/Vol] 10.1 g/dL Low 12.0-15.0 [facility] Comment on above: Order Comment: -1 Performed By: #### L 500.4050, L100.0500 #### [facility] [address] [place], [address] MCH (RBC) [Entitic mass] 28.9 pg Normal 27.0-32.0 [facility] Comment on above: Order Comment: - Performed By: #### L 500.4050, L100.0500 #### [facility] [address] [place], [address] MCHC (RBC) [Mass/Vol] 32.5 g/dL Normal 32-36 [facility] Comment on above: Order Comment: - Performed By: #### L 500.4050, L100.0500 #### [facility] [address] [place], [address] MCV (RBC) [Entitic vol] 89.1 fL Normal 81-99 [facility] Comment on above: Order Comment: -1 Performed By: #### L 500.4050, L100.0500 #### [facility] [address] [place], [address] Platelet mean volume (Bld) [Entitic vol] 11.9 fL Normal 6.2-12.0 [facility] Comment on above: Order Comment: -1 Performed By: #### L 500.4050, L100.0500 #### [facility] [address] [place], [address] Platelets (Bld) [#/Vol] 177 10*3/uL Normal 150-450 [facility] Comment on above: Order Comment: - Performed By: #### L 500.4050, L100.0500 #### [facility] [address] [place], [address] RBC (Bld) [#/Vol] 3.49 10*6/uL Low 4.2-5.4 [facility] Comment on above: Order Comment: - Performed By: #### L 500.4050, L100.0500 #### [facility] [address] [place], [address] RDW SD 43.0 fl Normal 35.1-43.9 [facility] Comment on above: Order Comment: - Performed By: #### L 500.4050, L100.0500 #### [facility] [address] [place], [address] WBC (Bld) [#/Vol] 6.6 10*3/uL Normal 4.4-11.0 [facility] Comment on above: Order Comment: Performed By: #### L 500.4050, L100.0500 #### [facility] [address] [place], [address] Carbon dioxide measurementOr dered By: Todd Velasquez on 12-10-2024 CO2 [Moles/Vol] 24.4 mmol/L 22.0-29.0 [facility] Chloride measurementOrdered By: Todd Velasquez on 12-10-2024 Chloride [Moles/Vol] 105 mmol/L 96-108 [facility] Comprehensive Metabolic Prof ilon 12-10-2024 Albumin [Mass/Vol] 3.6 g/dL Normal 3.4-4.8 [facility] Comment on above: Order Comment: Performed By: #### L 500.4050, L100.0500 #### [facility] [address] [place], [address] Albumin/Globulin [Mass ratio] 1.3 {ratio} Normal 0.9-2.4 [facility] Comment on above: Order Comment: - Performed By: #### L 500.4050, L100.0500 #### [facility] [address] [place], [address] ALK PHOS 118 U/L High 35-104 [facility] Comment on above: Order Comment: - Performed By: #### L 500.4050, L100.0500 #### [facility] [address] [place], [address] ALT [Catalytic activity/Vol] 14 U/L Normal <=34 [facility] Comment on above: Order Comment: - Performed By: #### L 500.4050, L100.0500 #### [facility] [address] [place], [address] Anion gap [Moles/Vol] 11 mmol/L Normal 5-15 [facility] Comment on above: Order Comment: - Performed By: #### L 500.4050, L100.0500 #### [facility] [address] [place], [address] AST [Catalytic activity/Vol] 34 U/L High <=31 [facility] Comment on above: Order Comment: - Performed By: #### L 500.4050, L100.0500 #### [facility] [address] [place], [address] Bilirubin [Mass/Vol] 0.21 mg/dL Normal 0.00-1.30 [facility] Comment on above: Order Comment: - Performed By: #### L 500.4050, L100.0500 #### [facility] [address] [place], [address] BUN/CRE 20.4 RATIO High 10-20 [facility] Comment on above: Order Comment: Performed By: #### L 500.4050, L100.0500 #### [facility] [address] [place], [address] Calcium [Mass/Vol] 8.9 mg/dL Normal 7.6-11.0 [facility] Comment on above: Order Comment: Performed By: #### L 500.4050, L100.0500 #### [facility] [address] [place], [address] Chloride [Moles/Vol] 105 mmol/L Normal 96-108 [facility] Comment on above: Order Comment: Performed By: #### L 500.4050, L100.0500 #### [facility] [address] [place], [address] CO2 [Moles/Vol] 24.4 mmol/L Normal 22.0-29.0 [facility] Comment on above: Order Comment: Performed By: #### L 500.4050, L100.0500 #### [facility] [address] [place], [address] Creatinine [Mass/Vol] 0.6 mg/dL Normal 0.6-1.0 [facility] Comment on above: Order Comment: Performed By: #### L 500.4050, L100.0500 #### [facility] [address] [place], [address] GFR/1.73 sq M.predicted among non-blacks MDRD (S/P/Bld) [Vol rate/Area] 95 mL/min/{1.73_m2} Normal >60 [facility] Comment on above: Order Comment: Result Comment: mL/m in/1.73m2 CKD-EPI Creatinine Equation (2020) Performed By: #### L 500.4050, L100.0500 #### [facility] [address] [place], [address] Globulin (S) [Mass/Vol] 2.7 g/dL Normal 2.2-4.2 [facility] Comment on above: Order Comment: - Performed By: #### L 500.4050, L100.0500 #### [facility] [address] [place], [address] Glucose [Mass/Vol] 92 mg/dL Normal 70-99 [facility] Comment on above: Order Comment: - Performed By: #### L 500.4050, L100.0500 #### [facility] [address] [place], [address] Potassium [Moles/Vol] 4.1 mmol/L Normal 3.3-5.1 [facility] Comment on above: Order Comment: - Performed By: #### L 500.4050, L100.0500 #### [facility] [address] [place], [address] Sodium [Moles/Vol] 140 mmol/L Normal 133-145 [facility] Comment on above: Order Comment: - Performed By: #### L 500.4050, L100.0500 #### [facility] [address] [place], [address] T PROT 6.3 g/dL Normal 5.9-8.4 [facility] Comment on above: Order Comment: - Performed By: #### L 500.4050, L100.0500 #### [facility] [address] [place], [address] Urea nitrogen [Mass/Vol] 11 mg/dL Normal 4-19 [facility] Comment on above: Order Comment: - Performed By: #### L 500.4050, L100.0500 #### [facility] [address] [place], [address] Creatinine [Moles/Vol]Ordere d By: Todd Velasquez on 12-10-2024 Creatinine [Mass/Vol] 0.6 mg/dL 0.6-1.0 [facility] Erythrocyte distribution wid th (RBC) [Ratio]Ordered By: Todd Velasquez on 12-10-2024 Erythrocyte distribution width (RBC) [Entitic vol] 43.0 fL 35.1-43.9 [facility] Erythrocyte distribution wid th ratioOrdered By: Todd Velasquez on 12-10-2024 Erythrocyte distribution width (RBC) [Ratio] 13.2 % 11.6-14.6 [facility] Erythrocyte distribution wid th standard deviationOrdered By: Todd Velasquez on 12-10-2024 Erythrocyte distribution width (RBC) [Ratio] 43.0 fl 35.1-43.9 [facility] GFR/1.73 sq M.predicted miguel g non-blacks MDRD (S/P/Bld) [Vol rate/Area]Ordered By: Todd Velasquez on 12-10-2024 Estimated GFR (MDRD) Non-Af Amer [address] [facility] Comment on above: mL/min/1.73m2 CKD-EP I Creatinine Equation (2020) Glomerular filtration rate ( GFR) estimation/1.73 sq m using serum, plasma, or whole bOrdered By: Todd Velasquez on 12-10-2024 GFR/1.73 sq M.predicted among non-blacks MDRD (S/P/Bld) [Vol rate/Area] 95 mL/min/{1.73_m2} >60 [facility] Comment on above: mL/min/1.73m2 CKD-EP I Creatinine Equation (2020) Hematocrit Auto (Bld) [Volum e fraction]Ordered By: Todd Velasquez on 12-10-2024 Hematocrit (Bld) [Volume fraction] 31.1 % Low 37-47 [facility] Hemoglobin measurementOrdere d By: Todd Velasquez on 12-10-2024 Hemoglobin (Bld) [Mass/Vol] 10.1 g/dL Low 12.0-15.0 [facility] - Chemistry and C hemistry - challengeOrdered By: Todd Velasquez on 12-10-2024 AST [Catalytic activity/Vol] 34 U/L High <32 [facility] MCV (mean corpuscular volume ) determinationOrdered By: Todd Velasquez on 12-10-2024 MCV (RBC) [Entitic vol] 89.1 fL 81-99 [facility] Mean corpuscular hemoglobin (MCH) determinationOrdered By: Todd Velasquez on 12-10-2024 MCH (RBC) [Entitic mass] 28.9 pg 27.0-32.0 [facility] Mean corpuscular hemoglobin concentration (MCHC) determinationOrdered By: Todd Velasquez on 12-10-2024 MCHC (RBC) [Mass/Vol] 32.5 g/dL 32-36 [facility] Mean platelet volume determi nationOrdered By: Todd Velasquez on 12-10-2024 Platelet mean volume (Bld) [Entitic vol] 11.9 fL 6.2-12.0 [facility] Platelet countOrdered By: Whitley on 12-10-2024 Platelets (Bld) [#/Vol] 177 10*3/uL 150-450 [facility] RBC Auto (Bld) [#/Vol]Ordere d By: Todd Velasquez on 12-10-2024 RBC (Bld) [#/Vol] 3.49 10*6/uL Low 4.2-5.4 [facility] Serum globulin measurementOr dered By: Todd Velasquez on 12-10-2024 Globulin (S) [Mass/Vol] 2.7 g/dL 2.2-4.2 [facility] Serum glucose measurement (m ass/volume)Ordered By: Todd Velasquez on 12-10-2024 Glucose [Mass/Vol] 92 mg/dL 70-99 [facility] Serum or plasma alanine ignacio otransferase (ALT) measurementOrdered By: Todd Velasquez on 12-10-2024 ALT [Catalytic activity/Vol] 14 U/L <35 [facility] Serum or plasma albumin jacob urement (mass/volume)Ordered By: Todd Velasquez on 12-10-2024 Albumin [Mass/Vol] 3.6 g/dL 3.4-4.8 [facility] Serum or plasma albumin/glob ulin mass ratioOrdered By: Todd Velasquez on 12-10-2024 Albumin/Globulin [Mass ratio] 1.3 {ratio} 0.9-2.4 [facility] Serum or plasma alkaline phillip sphatase measurementOrdered By: Todd Velasquez on 12-10-2024 ALP [Catalytic activity/Vol] 118 U/L High 35-104 [facility] Serum or plasma anion gap de termination (moles/volume)Ordered By: Todd Velasquez on 12-10-2024 Anion gap [Moles/Vol] 11 mmol/L 5-15 [facility] Serum or plasma calcium jacob urement (mass/volume)Ordered By: Todd Velasquez on 12-10-2024 Calcium [Mass/Vol] 8.9 mg/dL 7.6-11.0 [facility] Serum or plasma creatinine m easurement (moles/volume)Ordered By: Todd Velasquez on 12-10-2024 Creatinine [Moles/Vol] 0.6 mg/dL 0.6-1.0 [facility] Serum or plasma potassium me asurementOrdered By: Todd Velasquez on 12-10-2024 Potassium [Moles/Vol] 4.1 mmol/L 3.3-5.1 [facility] Serum or plasma sodium measu rement (moles/volume)Ordered By: Todd Velasquez on 12-10-2024 Sodium [Moles/Vol] 140 mmol/L 133-145 [facility] Serum or plasma urea nitroge n measurement (mass/volume)Ordered By: Todd Velasquez on 12-10-2024 Urea nitrogen [Mass/Vol] 11 mg/dL 4-19 [facility] Total proteinOrdered By: Ignacia Velasquez on 12-10-2024 Protein [Mass/Vol] 6.3 g/dL 5.9-8.4 [facility] White blood cell (WBC) count Ordered By: Todd Velasquez on 12-10-2024 WBC (Bld) [#/Vol] 6.6 10*3/uL 4.4-11.0 [facility] 30on 12-08-2024 30 Problem: Knowledge Deficit [...] Interventions Goal: Assess Nutritional Intake Outcome: Completed [facility] 30 Problem: Knowledge Deficit Goal: Patient/family/caregiver demonstrates understanding of disease process, treatment plan, medications, and discharge instructions Outcome: Completed Problem: Potential for Compromised Skin Integrity Goal: Skin Integrity is Maintained or Improved Outcome: Completed Goal: Nutritional status is improving Outcome: Completed Problem: Urinary Incontinence Goal: Perineal skin integrity is maintained or improved Outcome: Completed Problem: Problem Interventions Goal: Assess Nutritional Intake Outcome: Completed [facility] 30 Problem: Knowledge Deficit Goal: Patient/family/caregiver demonstrates understanding of disease process, treatment plan, medications, and discharge instructions Outcome: Progressing Problem: Potential for Compromised Skin Integrity Goal: Skin Integrity is Maintained or Improved Outcome: Progressing Goal: Nutritional status is improving Outcome: Progressing Problem: Urinary Incontinence Goal: Perineal skin integrity is maintained or improved Outcome: Progressing Problem: Problem Interventions Goal: Assess Nutritional Intake Outcome: Progressing [facility] [id number] 12-08-2024 [id number] Next Site of Care Admission Date: 12/03/2024 06:35 PM Patient Name: KATHERYN CHINO Location: [address] [id number] Date of : 1945 -------- Placement Information -------- Referral Type:Senior Living/SNF - Return Referral ID:[id number] Provider Name:[facility]. Address 1:[address] [facility] Address 2: City:[place] Selection Factors:Returning to Facility State:[place] [facility] [phone] MAR & Discharge med list transmitted to SNF Return - [facility] via [employer] per TCC request. Electronically signed by NARGIS Mccain [facility] [phone] Transport requested in [employer]. Awaiting time confirmation. Confirmed pickup time of 3:00 by transport company [employer] at phone number . Location of facility drop off is [facility]. [facility] [place]ine [place] notified on secure chat. [facility] [phone] Pt is stable for DC to return to [facility] SNF. [facility] tasked to arrange transport and to send DC notes/MAR to SNF. Transport arranged for 3:00 today. Pt's brother called, Danny [phone], updates given. [facility] BASIC METABOLIC PANELon 02-2 Anion gap [Moles/Vol] 6 mmol/L Normal 3-13 [facility] Comment on above: Performed By: #### L [id number], [id number] #### [employer]: JACKI MANCILLA ([phone]) [facility] [address] [place] [address] Calcium [Mass/Vol] 8.7 mg/dL Low 8.8-10.0 [facility] Comment on above: Performed By: #### L [id number], [id number] #### [employer]: JACKI MANCILLA ([phone]) [facility] [address] [place] [address] [place] Chloride [Moles/Vol] 108 mmol/L High 98-107 [facility] Comment on above: Performed By: #### L [id number], [id number] #### [employer] E[employer]ctor: JACKI MANCILLA ([phone]) [facility] [address] [place] [address] CO2 [Moles/Vol] 26 mmol/L Normal 23-31 [facility] Comment on above: Performed By: #### Ailyn AB239, [id number] #### [employer] E[employer]ctor: JACKI MANCILLA ([phone]) [facility] [address] [place] [address] Creatinine [Mass/Vol] 0.64 mg/dL Normal 0.57-1.11 [facility] Comment on above: Performed By: #### Ailyn AB239, [id number] #### [employer] E[employer]ctor: JACKI MANCILLA ([phone]) [facility] [address] [place] [address] GLOMERULAR FILTRATION RATE ML/MIN/1.73 SQ M.PREDICTED >90.0 Normal >60.0 [facility] Comment on above: Result Comment: Calc ulation based on the Chronic Kidney Disease Epidemiology Collaboration (CKD-EPI) equation refit without adjustment for race Performed By: #### L AB239, [id number] #### [employer]ctor: JACKI MANCILLA ([phone]) [facility] [address] [place] [address] Glucose [Mass/Vol] 87 mg/dL Normal 82-115 [facility] Comment on above: Performed By: #### L AB239, [id number] #### [employer] E[employer]ctor: JACKI MANCILLA ([phone]) [facility] ([facility]) [address] [place] [address] Potassium [Moles/Vol] 3.9 mmol/L Normal 3.5-5.1 [facility] Comment on above: Result Comment: [facility] potassium values may be up to 0.5 mmol/L lower than serum values. Performed By: #### L AB239, [id number] #### [employer]ctor: JACKI MANCILLA ([phone]) [facility]) [address] [place] [address] Sodium [Moles/Vol] 140 mmol/L Normal 136-145 [facility] Comment on above: Performed By: #### L AB239, [id number] #### [employer] E[employer]ctor: JACKI MANCILLA ([phone]) [facility]) [address] [place] [address] Urea nitrogen [Mass/Vol] 10 mg/dL Normal 9-23 [facility] Comment on above: Performed By: #### L AB239, [id number] #### [employer] E[employer]ctor: JACKI MANCILLA ([phone]) [facility]) [address] [place] [address] Bacteria identified Cx Nom ( Bld)on 12-08-2024 Interpretation and review of laboratory results Normal [facility] Blood Collection Sit e: Left Forearm [facility] Blood Collection Sit e: Left Hand [facility] Basic metabolic 1998 panelon 12-08-2024 Anion gap [Moles/Vol] 6 mmol/L 3 - 13 mmol/L [facility] Calcium [Mass/Vol] 8.7 mg/dL Low 8.8 - 10. 0 mg/dL [facility] Chloride [Moles/Vol] 108 mmol/L High 98 - 10 7 mmol/L [facility] CO2 [Moles/Vol] 26 mmol/L 23 - 31 mmol/L [facility] Creatinine [Mass/Vol] 0.64 mg/dL 0.57 - 1.11 mg/dL [facility] GFR/1.73 sq M.predicted (S/P/Bld) [Vol rate/Area] - PINF [facility] Comment on above: Calculation based on the Chronic Kidney Disease Epidemiology Collaboration (CKD-EPI) equation refit without adjustment for race Glucose [Mass/Vol] 87 mg/dL 82 - 115 mg/dL [facility] Interpretation and review of laboratory results Abnormal [facility] Potassium [Moles/Vol] 3.9 mmol/L 3.5 - 5.1 mmol/L [facility] Comment on above: Plasma potassium radha ues may be up to 0.5 mmol/L lower than serum values. Sodium [Moles/Vol] 140 mmol/L 136 - 145 mmol/L [facility] Urea nitrogen [Mass/Vol] 10 mg/dL 9 - 23 mg/dL [facility] CBC W Auto Differential pane l (Bld)on 12-08-2024 Basophils (Bld) [#/Vol] 0 10*3/uL 0.0 - 0.2 10*3/uL [facility] Basophils/100 WBC (Bld) 0.5 % 0.0 - 2.0 % [facility] Eosinophils (Bld) [#/Vol] 0.1 10*3/uL 0.0 - 0.5 10*3/uL [facility] Eosinophils/100 WBC (Bld) 1.5 % 0.0 - 6.0 % [facility] Erythrocyte distribution width (RBC) [Ratio] 13.1 % 11.5 - 15.0 % [facility] Hematocrit (Bld) [Volume fraction] 30.8 % Low 35.0 - 47.0 % [facility] Hemoglobin (Bld) [Mass/Vol] 9.9 g/dL Low 11.7 - 16.0 g/dL [facility] Immature granulocytes (Bld) [#/Vol] 0 10*3/uL NINF - 0.1 10*3/uL [facility] Immature granulocytes/100 WBC (Bld) 0.3 % 0.0 - 2.0 % [facility] Interpretation and review of laboratory results Abnormal [facility] Lymphocytes (Bld) [#/Vol] 2.1 10*3/uL 1.0 - 4.3 10*3/uL [facility] Lymphocytes/100 WBC (Bld) 35.7 % 15.0 - 45.0 % [facility] MCH (RBC) [Entitic mass] 28.7 pg 26. 0 - 34.0 pg [facility] MCHC (RBC) [Mass/Vol] 32.1 % 30.5 - 36.0 % [facility] MCV (RBC) [Entitic vol] 89.3 fL 77.0 - 99.0 fL [facility] Monocytes (Bld) [#/Vol] 0.5 10*3/uL 0.0 - 0.9 10*3/uL [facility] Monocytes/100 WBC (Bld) 9 % 5.0 - 13.0 % [facility] Neutrophils (Bld) [#/Vol] 3.1 10*3/uL 1.8 - 7.5 10*3/uL [facility] Neutrophils/100 WBC (Bld) 53 % 38.0 - 82.0 % [facility] Nucleated RBC/100 WBC (Bld) [Ratio] 0 % [facility] Platelet mean volume (Bld) [Entitic vol] 11.9 fL 9.0 - 12.7 fL [facility] Platelets (Bld) [#/Vol] 165 10*3/uL 140 - 440 10*3/uL [facility] RBC (Bld) [#/Vol] 3.45 10*6/uL Low 3.80 - 5.20 10*6/uL [facility] WBC (Bld) [#/Vol] 5.9 10*3/uL 3.6 - 10.7 10*3/uL [facility] CBC WITH AUTO DIFFERENTIALon 12-08-2024 Basophils (Bld) [#/Vol] 0.0 10*3/uL Normal 0.0-0.2 [facility] Comment on above: Performed By: #### L [id number] ####[employer]ctor: JACKI MANCILLA ([phone])[facility])[address] [place] [address] Basophils/100 WBC (Bld) 0.5 % Normal 0.0-2.0 [facility] Comment on above: Performed By: #### L [id number] ####[employer] E[employer]ctor: JACKI MANCILLA ([phone])[facility] ([facility])[address] [place] [address] Eosinophils (Bld) [#/Vol] 0.1 10*3/uL Normal 0.0-0.5 [facility] Comment on above: Performed By: #### L [id number] ####[employer] E[employer]ctor: JACKI MANCILLA ([id number])[facility])[address] [place] [address] Eosinophils/100 WBC (Bld) 1.5 % Normal 0.0-6.0 [facility] Comment on above: Performed By: #### L [id number] ####[employer] E[employer]ctor: JACKI MANCILLA ([id number])[facility])[address] [place] [address] Erythrocyte distribution width (RBC) [Ratio] 13.1 % Normal 11.5-15.0 [facility] Comment on above: Performed By: #### L [id number] ####[employer] E[employer]ctor: JACKI MANCILLA ([phone])[address] Hematocrit (Bld) [Volume fraction] 30.8 % Low 35.0-47.0 [facility] Comment on above: Performed By: #### L [id number] ####[employer] E[employer]ctor: JACKI MANCILLA ([phone])[address] Hemoglobin (Bld) [Mass/Vol] 9.9 g/dL Low 11.7-16.0 [facility] Comment on above: Performed By: #### L [id number] ####[employer] E[employer]ctor: JACKI MANCILLA ([id number])[address] IMMATURE GRANS % 0.3 % Normal 0.0-2.0 [facility] Comment on above: Performed By: #### L [id number] ####[employer] E[employer]ctor: JACKI MANCILLA ([phone])[address] IMMATURE GRANS ABSOLUTE 0.0 10*3/uL Normal <0.1 [facility] Comment on above: Performed By: #### L [id number] ####[employer] E[employer]ctor: JACKI MANCILLA ([phone])[facility])[address] [place] [address] Lymphocytes (Bld) [#/Vol] 2.1 10*3/uL Normal 1.0-4.3 [facility] Comment on above: Performed By: #### L [id number] ####[employer] E[employer]ctor: JACKI MANCILLA ([phone])[facility])[address] [place] [address] Lymphocytes/100 WBC (Bld) 35.7 % Normal 15.0-45.0 [facility] Comment on above: Performed By: #### L [id number] ####[employer] E[employer]ctor: JACKI MANCILLA ([id number])[facility])[address] [place] [address] MCH (RBC) [Entitic mass] 28.7 pg Normal 26.0-34.0 [facility] Comment on above: Performed By: #### L [id number] ####[employer] E[employer]ctor: JACKI MANCILLA ([id number])[facility])[address] [place] [address] MCHC 32.1 % Normal 30.5-36.0 [facility] Comment on above: Performed By: #### L [id number] ####[employer] E[employer]ctor: JACKI MANCILLA ([phone])[facility])[address] [place] [address] MCV (RBC) [Entitic vol] 89.3 fL Normal 77.0-99.0 [facility] Comment on above: Performed By: #### L [id number] ####[employer] E[employer]ctor: JACKI MANCILLA ([phone])[facility])[address] [place] [address] Monocytes (Bld) [#/Vol] 0.5 10*3/uL Normal 0.0-0.9 [facility] Comment on above: Performed By: #### L [id number] ####[employer] E[employer]ctor: JACKI MANCILLA ([phone])[facility] [place] [address] Monocytes/100 WBC (Bld) 9.0 % Normal 5.0-13.0 [facility] Comment on above: Performed By: #### L [id number] ####[employer] E[employer]ctor: JACKI MANCILLA ([id number])[facility])[address] [place] [address] NEUTROPHILS ABSOLUTE 3.1 10*3/uL Normal 1.8-7.5 [facility] Comment on above: Performed By: #### L [id number] ####[employer] E[employer]ctor: JACKI MANCILLA ([phone])[facility])[address] [place] [address] Neutrophils/100 WBC (Bld) 53.0 % Normal 38.0-82.0 [facility] Comment on above: Performed By: #### L [id number] ####[employer] E[employer]ctor: JACKI MANCILLA ([phone])[facility] ([facility])[address] [place] [address] NRBC 0.0 /100 WBCs Normal 0.0-2.0 [facility] Comment on above: Performed By: #### L [id number] ####[employer] E[employer]ctor: JACKI MANCILLA ([phone])[facility] ([facility])[address] [place] [address] Platelet mean volume (Bld) [Entitic vol] 11.9 fL Normal 9.0-12.7 [facility] Comment on above: Performed By: #### L [id number] ####[employer] E[employer]ctor: JACKI MANCILLA ([phone])[facility] ([facility])[address] [place] [address] Platelets (Bld) [#/Vol] 165 10*3/uL Normal 140-440 [facility] Comment on above: Performed By: #### L [id number] ####[employer] E[employer]ctor: JACKI MANCILLA ([phone])[facility] ([facility])[address] [place] [address] RBC (Bld) [#/Vol] 3.45 10*6/uL Low 3.80-5.20 [facility] Comment on above: Performed By: #### L [id number] ####[employer] E[employer]ctor: JACKI MANCILLA ([phone])[facility])[address] [place] [address] WBC (Bld) [#/Vol] 5.9 10*3/uL Normal 3.6-10.7 [facility] Comment on above: Performed By: #### L [id number] ####[employer] Erector: JACKI MANCILLA ([phone])[facility])[address] [place] [address] Laboratory - Microbiology an d Antimicrobial susceptibilityon 12-08-2024 Bacteria identified Cx Nom (Bld) No growth at 5 days [facility] 30on 12-07-2024 30 Problem: Knowledge Deficit [...] Goal: Assess Nutritional Intake Outcome: Progressing Normal [facility] BASIC METABOLIC PANELon 11-16 Anion gap [Moles/Vol] 7 mmol/L Normal 3-13 [facility] Comment on above: Performed By: #### L [id number] ####[employer] E[employer]ctor: JACKI MANCILLA ([phone])[facility])[address] [place] [address] Calcium [Mass/Vol] 9.0 mg/dL Normal 8.8-10.0 [facility] Comment on above: Performed By: #### L AB15 ####[employer] Erector: JACKI MANCILLA ([phone])[facility])[address] [place] [address] Chloride [Moles/Vol] 110 mmol/L High 98-107 [facility] Comment on above: Performed By: #### L AB15 ####[employer] Erector: JACKI MANCILLA ([phone])[facility] [place] [address] CO2 [Moles/Vol] 25 mmol/L Normal 23-31 [facility] Comment on above: Performed By: #### L AB15 ####[employer] Erector: JACKI MANCILLA ([phone])[facility])[address] [place] [address] Creatinine [Mass/Vol] 0.64 mg/dL Normal 0.57-1.11 [facility] Comment on above: Performed By: #### L AB15 ####[employer] Erector: JACKI MANCILLA ([phone])[facility])[address] [place] [address] GLOMERULAR FILTRATION RATE ML/MIN/1.73 SQ M.PREDICTED >90.0 Normal >60.0 [facility] Comment on above: Result Comment: Calc ulation based on the Chronic Kidney Disease Epidemiology Collaboration (CKD-EPI) equation refit without adjustment for race Performed By: #### L AB15 ####[employer] Erector: JACKI MANCILLA ([phone])[facility])[address] [place] [address] Glucose [Mass/Vol] 90 mg/dL Normal 82-115 [facility] Comment on above: Performed By: #### L AB15 ####[employer] E[employer]ctor: JACKI MANCILLA ([phone])[facility])[address] [place] [address] Potassium [Moles/Vol] 3.9 mmol/L Normal 3.5-5.1 [facility] Comment on above: Result Comment: [facility] potassium values may be up to 0.5 mmol/L lower than serum values. Performed By: #### L AB15 ####[employer] E[employer]ctor: JACKI MANCILLA ([phone])[facility])[address] [place] [address] Sodium [Moles/Vol] 142 mmol/L Normal 136-145 [facility] Comment on above: Performed By: #### L AB15 ####[employer] Erector: JACKI MANCILLA ([phone])[facility])[address] [place] [address] Urea nitrogen [Mass/Vol] 12 mg/dL Normal -23 [facility] Comment on above: Performed By: #### L AB15 ####[employer] Erector: JACKI MANCILLA ([phone])[facility])[address] [place] [address] Basic metabolic 1998 panelon 12-07-2024 Anion gap [Moles/Vol] 7 mmol/L 3 - 13 mmol/L [facility] Calcium [Mass/Vol] 9 mg/dL 8.8 - 10. 0 mg/dL [facility] Chloride [Moles/Vol] 110 mmol/L High 98 - 10 7 mmol/L [facility] CO2 [Moles/Vol] 25 mmol/L 23 - 31 mmol/L [facility] Creatinine [Mass/Vol] 0.64 mg/dL 0.57 - 1.11 mg/dL [facility] GFR/1.73 sq M.predicted (S/P/Bld) [Vol rate/Area] - PINF [facility] Comment on above: Calculation based on the Chronic Kidney Disease Epidemiology Collaboration (CKD-EPI) equation refit without adjustment for race Glucose [Mass/Vol] 90 mg/dL 82 - 115 mg/dL [facility] Interpretation and review of laboratory results Abnormal [facility] Potassium [Moles/Vol] 3.9 mmol/L 3.5 - 5.1 mmol/L [facility] Comment on above: Plasma potassium radha ues may be up to 0.5 mmol/L lower than serum values. Sodium [Moles/Vol] 142 mmol/L 136 - 145 mmol/L [facility] Urea nitrogen [Mass/Vol] 12 mg/dL 9 - 23 mg/dL [facility] CBC W Auto Differential pane l (Bld)on 12-07-2024 Basophils (Bld) [#/Vol] 0 10*3/uL 0.0 - 0.2 10*3/uL [facility] Basophils/100 WBC (Bld) 0.5 % 0.0 - 2.0 % [facility] Eosinophils (Bld) [#/Vol] 0.1 10*3/uL 0.0 - 0.5 10*3/uL [facility] Eosinophils/100 WBC (Bld) 1.2 % 0.0 - 6.0 % [facility] Erythrocyte distribution width (RBC) [Ratio] 13.2 % 11.5 - 15.0 % [facility] Hematocrit (Bld) [Volume fraction] 32.1 % Low 35.0 - 47.0 % [facility] Hemoglobin (Bld) [Mass/Vol] 10.4 g/dL Low 11.7 - 16.0 g/dL [facility] Immature granulocytes (Bld) [#/Vol] 0 10*3/uL NINF - 0.1 10*3/uL [facility] Immature granulocytes/100 WBC (Bld) 0.2 % 0.0 - 2.0 % [facility] Interpretation and review of laboratory results Abnormal [facility] Lymphocytes (Bld) [#/Vol] 2.1 10*3/uL 1.0 - 4.3 10*3/uL [facility] Lymphocytes/100 WBC (Bld) 35 % 15.0 - 45.0 % [facility] MCH (RBC) [Entitic mass] 28.1 pg 26. 0 - 34.0 pg [facility] MCHC (RBC) [Mass/Vol] 32.4 % 30.5 - 36.0 % [facility] MCV (RBC) [Entitic vol] 86.8 fL 77.0 - 99.0 fL [facility] Monocytes (Bld) [#/Vol] 0.6 10*3/uL 0.0 - 0.9 10*3/uL [facility] Monocytes/100 WBC (Bld) 10.1 % 5.0 - 13.0 % [facility] Neutrophils (Bld) [#/Vol] 3.2 10*3/uL 1.8 - 7.5 10*3/uL [facility] Neutrophils/100 WBC (Bld) 53 % 38.0 - 82.0 % [facility] Nucleated RBC/100 WBC (Bld) [Ratio] 0 % [facility] Platelet mean volume (Bld) [Entitic vol] 11.5 fL 9.0 - 12.7 fL [facility] [facility] Platelets (Bld) [#/Vol] 169 10*3/uL 140 - 440 10*3/uL [facility] RBC (Bld) [#/Vol] 3.7 10*6/uL Low 3.80 - 5.20 10*6/uL [facility] WBC (Bld) [#/Vol] 6.1 10*3/uL 3.6 - 10.7 10*3/uL [facility] CBC WITH AUTO DIFFERENTIALon 12-07-2024 Basophils (Bld) [#/Vol] 0.0 10*3/uL Normal 0.0-0.2 [facility] Comment on above: Performed By: #### L [id number] ####[employer] Erector: JACKI MANCILLA ([phone])[facility])[address] [place] [address] Basophils/100 WBC (Bld) 0.5 % Normal 0.0-2.0 [facility] Comment on above: Performed By: #### L [id number] ####[employer] Erector: JACKI MANCILLA ([phone])[facility])[address] [place] [address] Eosinophils (Bld) [#/Vol] 0.1 10*3/uL Normal 0.0-0.5 [facility] Comment on above: Performed By: #### L [id number] ####[employer] Erector: JACKI MANCILLA ([phone])[facility])[address] [place] [address] Eosinophils/100 WBC (Bld) 1.2 % Normal 0.0-6.0 [facility] Comment on above: Performed By: #### L [id number] ####[employer] Erector: JACKI MANCILLA ([phone])[facility])[address] [place] [address] Erythrocyte distribution width (RBC) [Ratio] 13.2 % Normal 11.5-15.0 [facility] Comment on above: Performed By: #### L [id number] ####[employer] E[employer]ctor: JACKI MANCILLA ([id number])[facility])[address] [place] [address] Hematocrit (Bld) [Volume fraction] 32.1 % Low 35.0-47.0 [facility] Comment on above: Performed By: #### L [id number] ####[employer] Erector: JACKI MANCILLA ([phone])[facility])[address] [place] [address] Hemoglobin (Bld) [Mass/Vol] 10.4 g/dL Low 11.7-16.0 [facility] Comment on above: Performed By: #### L [id number] ####[employer] E[employer]ctor: JACKI MANCILLA ([phone])[facility])[address] [place] [address] IMMATURE GRANS % 0.2 % Normal 0.0-2.0 [facility] Comment on above: Performed By: #### L [id number] ####[employer] Erector: JACKI MANCILLA ([phone])[facility])[address] [place] [address] IMMATURE GRANS ABSOLUTE 0.0 10*3/uL Normal <0.1 [facility] Comment on above: Performed By: #### L [id number] ####[employer] Erector: JACKI MANCILLA ([phone])[facility])[address] [place] [address] Lymphocytes (Bld) [#/Vol] 2.1 10*3/uL Normal 1.0-4.3 [facility] Comment on above: Performed By: #### L [id number] ####[employer] E[employer]ctor: JACKI MANCILLA ([phone])[facility])[address] [place] [address] Lymphocytes/100 WBC (Bld) 35.0 % Normal 15.0-45.0 [facility] Comment on above: Performed By: #### L [id number] ####[employer] Erector: JACKI MANCILLA ([phone])[facility])[address] [place] [address] MCH (RBC) [Entitic mass] 28.1 pg Normal 26.0-34.0 [facility] Comment on above: Performed By: #### L [id number] ####[employer] Erector: JACKI MANCILLA ([phone])[facility])[address] [place] [address] MCHC 32.4 % Normal 30.5-36.0 [facility] Comment on above: Performed By: #### L [id number] ####[employer] Erector: JACKI MANCILLA ([id number])[facility])[address] [place] [address] MCV (RBC) [Entitic vol] 86.8 fL Normal 77.0-99.0 [facility] Comment on above: Performed By: #### L [id number] ####Wood [employer] Erector: JACKI MANCILLA ([phone])[facility] ([facility])[address] [place] [address] Monocytes (Bld) [#/Vol] 0.6 10*3/uL Normal 0.0-0.9 [facility] Comment on above: Performed By: #### L [id number] ####[employer] Erector: JACKI MANCILLA ([phone])[facility])[address] [place] [address] Monocytes/100 WBC (Bld) 10.1 % Normal 5.0-13.0 [facility] Comment on above: Performed By: #### L [id number] ####[employer] Erector: JACKI MANCILLA ([phone])[facility])[address] [place] [address] NEUTROPHILS ABSOLUTE 3.2 10*3/uL Normal 1.8-7.5 [facility] Comment on above: Performed By: #### L [id number] ####[employer] Erector: JACKI MANCILLA ([phone])[facility])[address] [place] [address] Neutrophils/100 WBC (Bld) 53.0 % Normal 38.0-82.0 [facility] Comment on above: Performed By: #### L [id number] ####[employer] Erector: JACKI MANCILLA ([id number])[facility])[address] [place] [address] NRBC 0.0 /100 WBCs Normal 0.0-2.0 [facility] Comment on above: Performed By: #### L [id number] ####Wood [employer] Erector: JACKI MANCILLA ([phone])[facility] ([facility])[address] [place] [address] Platelet mean volume (Bld) [Entitic vol] 11.5 fL Normal 9.0-12.7 [facility] Comment on above: Performed By: #### L [id number] ####[employer] Erector: JACKI MANCILLA ([phone])[facility] ([facility])[address] [place] [address] Platelets (Bld) [#/Vol] 169 10*3/uL Normal 140-440 [facility] Comment on above: Performed By: #### L [id number] ####[employer] Erector: JACKI MANCILLA ([phone])[facility] ([facility])[address] [place] [address] RBC (Bld) [#/Vol] 3.70 10*6/uL Low 3.80-5.20 [facility] Comment on above: Performed By: #### L [id number] ####[employer] Erector: JACKI MANCILLA ([id number])[facility] ([facility])[address] [place] [address] WBC (Bld) [#/Vol] 6.1 10*3/uL Normal 3.6-10.7 [facility] Comment on above: Performed By: #### L [id number] ####[employer] Erector: JACKI MANCILLA ([phone])[facility])[address] [place] [address] 30on 12-06-2024 30 Problem: Knowledge Deficit Goal: [...] Maria Victoria Zapata RN Outcome: Progressing Normal [facility] 30 Problem: Knowledge Deficit Goal: Patient/family/caregiver demonstrates understanding of disease process, treatment plan, medications, and discharge instructions Outcome: Progressing Problem: Potential for Compromised Skin Integrity Goal: Skin Integrity is Maintained or Improved Outcome: Progressing Goal: Nutritional status is improving Outcome: Progressing Problem: Urinary Incontinence Goal: Perineal skin integrity is maintained or improved Outcome: Progressing Normal [facility] BASIC METABOLIC PANELon 11-16 Anion gap [Moles/Vol] 7 mmol/L Normal 3-13 [facility] Comment on above: Performed By: #### L [id number] ####[employer] Erector: JACKI MANCILLA ([phone])[facility])[address] [place] [address] Calcium [Mass/Vol] 8.8 mg/dL Normal 8.8-10.0 [facility] Comment on above: Performed By: #### L [id number] ####[employer] Erector: JACKI MANCILLA ([phone])[facility] ([facility])[address] [place] [address] Chloride [Moles/Vol] 110 mmol/L High 98-107 [facility] Comment on above: Performed By: #### L [id number] ####Wood Tank Erector: JACKI MANCILLA ([phone])[facility] ([facility])[address] [place] [address] [place] CO2 [Moles/Vol] 24 mmol/L Normal 23-31 [facility] Comment on above: Performed By: #### L AB15 ####Wood Tank Erector: JACKI MANCILLA ([phone])[facility])[address] [place] [address] Creatinine [Mass/Vol] 0.64 mg/dL Normal 0.57-1.11 [facility] Comment on above: Performed By: #### L AB15 ####Wood Tank Erector: JACKI MANCILLA ([phone])[facility])[address] [place] [address] GLOMERULAR FILTRATION RATE ML/MIN/1.73 SQ M.PREDICTED >90.0 Normal >60.0 [facility] Comment on above: Result Comment: Calc ulation based on the Chronic Kidney Disease Epidemiology Collaboration (CKD-EPI) equation refit without adjustment for race Performed By: #### L AB15 ####Wood [employer] Erector: JACKI MANCILLA ([phone])[facility])[address] [place] [address] Glucose [Mass/Vol] 87 mg/dL Normal 82-115 [facility] Comment on above: Performed By: #### L AB15 ####[employer] Erector: JACKI MANCILLA ([phone])[address] Potassium [Moles/Vol] 3.7 mmol/L Normal 3.5-5.1 [facility] Comment on above: Result Comment: [facility] potassium values may be up to 0.5 mmol/L lower than serum values. Performed By: #### L AB15 ####Wood Tank Erector: JACKI MANCILLA ([phone])[facility])[address] [place] [address] Sodium [Moles/Vol] 141 mmol/L Normal 136-145 [facility] Comment on above: Performed By: #### L AB15 ####Wood [employer] Erector: JACKI MANCILLA ([phone])[facility])[address] [place] [address] Urea nitrogen [Mass/Vol] 12 mg/dL Normal 9-23 [facility] Comment on above: Performed By: #### L AB15 ####Wood [employer] Erector: JACKI MANCILLA ([phone])[facility])[address] [place] [address] Bacteria identified Cx Nom ( U)Ordered By: Emily Ocampo on 02-22-2025 Interpretation and review of laboratory results Abnormal [facility] Basic metabolic 1998 panelon 12-06-2024 Anion gap [Moles/Vol] 7 mmol/L 3 - 13 mmol/L [facility] Calcium [Mass/Vol] 8.8 mg/dL 8.8 - 10. 0 mg/dL [facility] Chloride [Moles/Vol] 110 mmol/L High 98 - 10 7 mmol/L [facility] CO2 [Moles/Vol] 24 mmol/L 23 - 31 mmol/L [facility] Creatinine [Mass/Vol] 0.64 mg/dL 0.57 - 1.11 mg/dL [facility] GFR/1.73 sq M.predicted (S/P/Bld) [Vol rate/Area] - PINF [facility] Comment on above: Calculation based on the Chronic Kidney Disease Epidemiology Collaboration (CKD-EPI) equation refit without adjustment for race Glucose [Mass/Vol] 87 mg/dL 82 - 115 mg/dL [facility] Interpretation and review of laboratory results Abnormal [facility] Potassium [Moles/Vol] 3.7 mmol/L 3.5 - 5.1 mmol/L [facility] Comment on above: Plasma potassium radha ues may be up to 0.5 mmol/L lower than serum values. Sodium [Moles/Vol] 141 mmol/L 136 - 145 mmol/L [facility] Urea nitrogen [Mass/Vol] 12 mg/dL 9 - 23 mg/dL [facility] CBC W Auto Differential pane l (Bld)on 12-06-2024 Basophils (Bld) [#/Vol] 0 10*3/uL 0.0 - 0.2 10*3/uL [facility] Basophils/100 WBC (Bld) 0.6 % 0.0 - 2.0 % [facility] Eosinophils (Bld) [#/Vol] 0 10*3/uL 0.0 - 0.5 10*3/uL [facility] Eosinophils/100 WBC (Bld) 0.6 % 0.0 - 6.0 % [facility] Erythrocyte distribution width (RBC) [Ratio] 13 % 11.5 - 15.0 % [facility] Hematocrit (Bld) [Volume fraction] 33 % Low 35.0 - 47.0 % [facility] Hemoglobin (Bld) [Mass/Vol] 10.5 g/dL Low 11.7 - 16.0 g/dL [facility] Immature granulocytes (Bld) [#/Vol] 0 10*3/uL NINF - 0.1 10*3/uL [facility] Immature granulocytes/100 WBC (Bld) 0.2 % 0.0 - 2.0 % [facility] Interpretation and review of laboratory results Abnormal [facility] Lymphocytes (Bld) [#/Vol] 2 10*3/uL 1.0 - 4.3 10*3/uL [facility] Lymphocytes/100 WBC (Bld) 37 % 15.0 - 45.0 % [facility] MCH (RBC) [Entitic mass] 28.7 pg 26. 0 - 34.0 pg [facility] MCHC (RBC) [Mass/Vol] 31.8 % 30.5 - 36.0 % [facility] MCV (RBC) [Entitic vol] 90.2 fL 77.0 - 99.0 fL [facility] Monocytes (Bld) [#/Vol] 0.6 10*3/uL 0.0 - 0.9 10*3/uL [facility] Monocytes/100 WBC (Bld) 11 % 5.0 - 13.0 % [facility] Neutrophils (Bld) [#/Vol] 2.7 10*3/uL 1.8 - 7.5 10*3/uL [facility] Neutrophils/100 WBC (Bld) 50.6 % 38.0 - 82.0 % [facility] Nucleated RBC/100 WBC (Bld) [Ratio] 0 % [facility] Platelet mean volume (Bld) [Entitic vol] 11.7 fL 9.0 - 12.7 fL [facility] Platelets (Bld) [#/Vol] 158 10*3/uL 140 - 440 10*3/uL [facility] RBC (Bld) [#/Vol] 3.66 10*6/uL Low 3.80 - 5.20 10*6/uL [facility] WBC (Bld) [#/Vol] 5.3 10*3/uL 3.6 - 10.7 10*3/uL [facility] CBC WITH AUTO DIFFERENTIALon 12-06-2024 Basophils (Bld) [#/Vol] 0.0 10*3/uL Normal 0.0-0.2 [facility] Comment on above: Performed By: #### L [id number], [id number] #### [employer] Erector: JACKI MANCILLA ([phone]) [facility]) [address] [place] [address] Basophils/100 WBC (Bld) 0.6 % Normal 0.0-2.0 [facility] Comment on above: Performed By: #### L [id number], [id number] #### [employer] Erector: JACKI MANCILLA ([phone]) [facility]) [address] [place] [address] Eosinophils (Bld) [#/Vol] 0.0 10*3/uL Normal 0.0-0.5 [facility] Comment on above: Performed By: #### L [id number], [id number] #### [employer] Erector: JACKI MANCILLA ([id number]) [facility]) [address] [place] [address] Eosinophils/100 WBC (Bld) 0.6 % Normal 0.0-6.0 [facility] Comment on above: Performed By: #### L AB239, [id number] #### [employer] Erector: JACKI MANCILLA ([phone]) [facility]) [address] [place] [address] Erythrocyte distribution width (RBC) [Ratio] 13.0 % Normal 11.5-15.0 [facility] Comment on above: Performed By: #### L AB239, [id number] #### [employer] Erector: JACKI MANCILLA ([phone]) [facility]) [address] [place] [address] Hematocrit (Bld) [Volume fraction] 33.0 % Low 35.0-47.0 [facility] Comment on above: Performed By: #### L AB239, [id number] #### Wood [employer] Erector: JACKI MANCILLA ([phone]) [facility]) [address] [place] [address] Hemoglobin (Bld) [Mass/Vol] 10.5 g/dL Low 11.7-16.0 [facility] Comment on above: Performed By: #### L AB239, [id number] #### [employer] Erector: JACKI MANCILLA ([phone]) [facility]) [address] [place] [address] IMMATURE GRANS % 0.2 % Normal 0.0-2.0 [facility] Comment on above: Performed By: #### L AB239, [id number] #### Wood [employer] Erector: JACKI MANCILLA ([phone]) [facility]) [address] [place] [address] IMMATURE GRANS ABSOLUTE 0.0 10*3/uL Normal <0.1 [facility] Comment on above: Performed By: #### L AB239, [id number] #### Wood [employer] Erector: JACKI MANCILLA ([phone]) [facility]) [address] [place] [address] Lymphocytes (Bld) [#/Vol] 2.0 10*3/uL Normal 1.0-4.3 [facility] Comment on above: Performed By: #### Ailyn AB239, [id number] #### [employer] Erector: JACKI MANCILLA ([phone]) [facility]) [address] [place] [address] Lymphocytes/100 WBC (Bld) 37.0 % Normal 15.0-45.0 [facility] Comment on above: Performed By: #### L AB239, [id number] #### Wood [employer] Erector: JACKI MANCILLA ([phone]) [facility]) [address] [place] [address] MCH (RBC) [Entitic mass] 28.7 pg Normal 26.0-34.0 [facility] Comment on above: Performed By: #### L AB239, [id number] #### Wood [employer] Erector: JACKI MANCILLA ([phone]) [address] MCHC 31.8 % Normal 30.5-36.0 [facility] Comment on above: Performed By: #### L AB239, [id number] #### Wood Tank Erector: JACKI MANCILLA ([id number]) [facility] [address] [place] [address] MCV (RBC) [Entitic vol] 90.2 fL Normal 77.0-99.0 [facility] Comment on above: Performed By: #### L AB239, [id number] #### Wood Tank Erector: JACKI MANCILLA ([phone]) [facility] ([facility]) [address] [place] [address] Monocytes (Bld) [#/Vol] 0.6 10*3/uL Normal 0.0-0.9 [facility] Comment on above: Performed By: #### L AB239, [id number] #### Wood [employer] Erector: JACKI MANCILLA ([phone]) [facility] ([facility]) [address] [place] [address] Monocytes/100 WBC (Bld) 11.0 % Normal 5.0-13.0 [facility] Comment on above: Performed By: #### L AB239, [id number] #### Wood [employer] Erector: JACKI MANCILLA ([id number]) [facility] ([facility]) [address] [place] [address] [place] NEUTROPHILS ABSOLUTE 2.7 10*3/uL Normal 1.8-7.5 [facility] Comment on above: Performed By: #### L AB239, [id number] #### Wood [employer] Erector: JACKI MANCILLA ([id number]) [facility] ([facility]) [address] [place] [address] [place] Neutrophils/100 WBC (Bld) 50.6 % Normal 38.0-82.0 [facility] Comment on above: Performed By: #### L AB239, [id number] #### [employer] Erector: JACKI MANCILLA ([phone]) [facility]) [address] [place] [address] [place] NRBC 0.0 /100 WBCs Normal 0.0-2.0 [facility] Comment on above: Performed By: #### L AB239, [id number] #### [employer] Erector: JACKI MANCILLA ([phone]) [facility]) [address] [place] [address] Platelet mean volume (Bld) [Entitic vol] 11.7 fL Normal 9.0-12.7 [facility] Comment on above: Performed By: #### L AB239, [id number] #### [employer] Erector: JACKI MANCILLA ([phone]) [facility]) [address] [place] [address] Platelets (Bld) [#/Vol] 158 10*3/uL Normal 140-440 [facility] Comment on above: Performed By: #### L AB239, [id number] #### [employer] Erector: JACKI MANCILLA ([phone]) [facility]) [address] [place] [address] RBC (Bld) [#/Vol] 3.66 10*6/uL Low 3.80-5.20 [facility] Comment on above: Performed By: #### Ailyn AB239, [id number] #### [employer] Erector: JACKI MANCILLA ([phone]) [facility] ([facility]) [address] [place] [address] WBC (Bld) [#/Vol] 5.3 10*3/uL Normal 3.6-10.7 [facility] Comment on above: Performed By: #### L AB239, [id number] #### [employer] Erector: JACKI MANCILLA ([phone]) [facility]) [address] [place] [address] Laboratory - Drug toxicology on 12-06-2024 Valproate [Mass/Vol] 20.4 ug/mL Low 50.0 - 100.0 mg/L [facility] Comment on above: Test Performed by Reji Chapin, [facility], [address] [place] [address] Jorge L Guerrero M.D., Ph.D., Director of Laboratories , CLIA [id number] Valproate Free [Mass/Vol] <4.0 Low 4.8 - 17.3 mg/L [facility] Comment on above: Note: Non-linear drug binding properties result in the fraction of Free Valproic Acid increasing as total drug increases. The free fraction may range from 5% to 25% for the total drug range of 30-160 mg/L. Laboratory - Microbiology an d Antimicrobial susceptibilityOrdered By: Emily Ocampo on 12-06-2024 Bacteria identified Cx Nom (U) Normal urogenital devyn present [facility] Bacteria identified Cx Nom (U) >100,000 CFU/mL Escherichia coli Abnormal [facility] Bacteria identified Cx Nom (U) >100,000 CFU/mL Aerococcus urinae Abnormal [facility] Comment on above: Susceptibility testi ng not routinely performed except on isolates from blood culture. Aerococcus species are generally susceptible to beta-lactams. Resistance to sulfonamides is common in Aerococcus urinae. Providers should call the [facility] obiology Laboratory ([phone]) within 3 days if susceptibility testing is required. No Panel Informationon 12-06 Interpretation and review of laboratory results Abnormal [facility] 30on 12-05-2024 30 Problem: Knowledge Deficit Goal: Patient/family/caregiver demonstrates understanding of disease process, treatment plan, medications, and discharge instructions Outcome: Progressing Problem: Potential for Compromised Skin Integrity Goal: Skin Integrity is Maintained or Improved Outcome: Progressing Goal: Nutritional status is improving Outcome: Progressing Problem: Urinary Incontinence Goal: Perineal skin integrity is maintained or improved Outcome: Progressing Normal [facility] [id number] 12-05-2024 [id number] Pt adm from [facility] SNF/LTC, with Sepsis 2nd to UTI. Plan is to return. Facility will adm pt back skilled under Medicare. Called pt's brother Danny, was called and updated. CM to follow. Normal [facility] BASIC METABOLIC PANELon 11-16 Anion gap [Moles/Vol] 9 mmol/L Normal 3-13 [facility] Comment on above: Performed By: #### L AB15 #### [employer] E[employer]ctor: JACKI MANCILLA ([phone]) [facility] ([facility]) [address] [place] [address] Calcium [Mass/Vol] 8.2 mg/dL Low 8.8-10.0 [facility] Comment on above: Performed By: #### L AB15 #### [employer] Erector: JACKI MANCILLA ([phone]) [facility] [address] [place] [address] Chloride [Moles/Vol] 110 mmol/L High 98-107 [facility] Comment on above: Performed By: #### L AB15 #### [employer] Erector: JACKI MANCILLA ([phone]) [facility] [address] [place] [address] CO2 [Moles/Vol] 22 mmol/L Low 23-31 [facility] Comment on above: Performed By: #### L [id number] #### [employer] E[employer]ctor: JACKI MANCILLA ([phone]) [facility] [address] [place] [address] Creatinine [Mass/Vol] 0.68 mg/dL Normal 0.57-1.11 [facility] Comment on above: Performed By: #### L [id number] #### [employer] E[employer]ctor: JACKI MANCILLA ([phone]) [facility] ([facility]) [address] [place] [address] GLOMERULAR FILTRATION RATE ML/MIN/1.73 SQ M.PREDICTED 89.8 mL/min/1.73m*2 Normal >60.0 [facility] Comment on above: Result Comment: Calc ulation based on the Chronic Kidney Disease Epidemiology Collaboration (CKD-EPI) equation refit without adjustment for race Performed By: #### L [id number] #### Wood Tank Erector: JACKI MANCILLA ([phone]) [facility] [address] [place] [address] [place] Glucose [Mass/Vol] 86 mg/dL Normal 82-115 [facility] Comment on above: Performed By: #### L [id number] #### Wood Tank Erector: JACKI MANCILLA ([phone]) [facility] [address] [place] [address] Potassium [Moles/Vol] 3.8 mmol/L Normal 3.5-5.1 [facility] Comment on above: Result Comment: [facility] potassium values may be up to 0.5 mmol/L lower than serum values. Performed By: #### L [id number] #### Wood Tank Erector: JACKI MANCILLA ([phone]) [facility] [address] [place] [address] Sodium [Moles/Vol] 141 mmol/L Normal 136-145 [facility] Comment on above: Performed By: #### L [id number] #### Wood Tank Erector: JACKI MANCILLA ([phone]) [facility] [address] [place] [address] Urea nitrogen [Mass/Vol] 13 mg/dL Normal 9-23 [facility] Comment on above: Performed By: #### L [id number] #### Wood Tank Erector: JACKI MANCILLA ([phone]) [facility] ([facility]) [address] [place] [address] Basic metabolic 1998 panelon 12-05-2024 Anion gap [Moles/Vol] 9 mmol/L 3 - 13 mmol/L [facility] Calcium [Mass/Vol] 8.2 mg/dL Low 8.8 - 10. 0 mg/dL [facility] Chloride [Moles/Vol] 110 mmol/L High 98 - 10 7 mmol/L [facility] CO2 [Moles/Vol] 22 mmol/L Low 23 - 31 mmol/L [facility] Creatinine [Mass/Vol] 0.68 mg/dL 0.57 - 1.11 mg/dL [facility] GFR/1.73 sq M.predicted (S/P/Bld) [Vol rate/Area] 89.8 mL/min - PINF [facility] Comment on above: Calculation based on the Chronic Kidney Disease Epidemiology Collaboration (CKD-EPI) equation refit without adjustment for race Glucose [Mass/Vol] 86 mg/dL 82 - 115 mg/dL [facility] Interpretation and review of laboratory results Abnormal [facility] Potassium [Moles/Vol] 3.8 mmol/L 3.5 - 5.1 mmol/L [facility] Comment on above: Plasma potassium radha ues may be up to 0.5 mmol/L lower than serum values. Sodium [Moles/Vol] 141 mmol/L 136 - 145 mmol/L [facility] Urea nitrogen [Mass/Vol] 13 mg/dL 9 - 23 mg/dL [facility] CBC W Auto Differential pane l (Bld)on 12-05-2024 Basophils (Bld) [#/Vol] 0 10*3/uL 0.0 - 0.2 10*3/uL [facility] Basophils/100 WBC (Bld) 0.6 % 0.0 - 2.0 % [facility] Eosinophils (Bld) [#/Vol] 0 10*3/uL 0.0 - 0.5 10*3/uL [facility] Eosinophils/100 WBC (Bld) 0.5 % 0.0 - 6.0 % [facility] Erythrocyte distribution width (RBC) [Ratio] 13.3 % 11.5 - 15.0 % [facility] Hematocrit (Bld) [Volume fraction] 30.4 % Low 35.0 - 47.0 % [facility] Hemoglobin (Bld) [Mass/Vol] 9.6 g/dL Low 11.7 - 16.0 g/dL [facility] Immature granulocytes (Bld) [#/Vol] 0 10*3/uL NINF - 0.1 10*3/uL [facility] Immature granulocytes/100 WBC (Bld) 0.3 % 0.0 - 2.0 % [facility] Interpretation and review of laboratory results Abnormal [facility] Lymphocytes (Bld) [#/Vol] 2 10*3/uL 1.0 - 4.3 10*3/uL [facility] Lymphocytes/100 WBC (Bld) 32.3 % 15.0 - 45.0 % [facility] MCH (RBC) [Entitic mass] 28.5 pg 26. 0 - 34.0 pg [facility] MCHC (RBC) [Mass/Vol] 31.6 % 30.5 - 36.0 % [facility] MCV (RBC) [Entitic vol] 90.2 fL 77.0 - 99.0 fL [facility] Monocytes (Bld) [#/Vol] 0.8 10*3/uL 0.0 - 0.9 10*3/uL [facility] Monocytes/100 WBC (Bld) 12.8 % 5.0 - 13.0 % [facility] Neutrophils (Bld) [#/Vol] 3.3 10*3/uL 1.8 - 7.5 10*3/uL [facility] Neutrophils/100 WBC (Bld) 53.5 % 38.0 - 82.0 % [facility] Nucleated RBC/100 WBC (Bld) [Ratio] 0 % [facility] Platelet mean volume (Bld) [Entitic vol] 11.7 fL 9.0 - 12.7 fL [facility] Platelets (Bld) [#/Vol] 148 10*3/uL 140 - 440 10*3/uL [facility] RBC (Bld) [#/Vol] 3.37 10*6/uL Low 3.80 - 5.20 10*6/uL [facility] WBC (Bld) [#/Vol] 6.2 10*3/uL 3.6 - 10.7 10*3/uL [facility] CBC WITH AUTO DIFFERENTIALon 12-05-2024 Basophils (Bld) [#/Vol] 0.0 10*3/uL Normal 0.0-0.2 [facility] Comment on above: Performed By: #### L [id number] ####Wood Tank Erector: JACKI MANCILLA ([phone])[facility])[address] [place] [address] Basophils/100 WBC (Bld) 0.6 % Normal 0.0-2.0 [facility] Comment on above: Performed By: #### L [id number] ####Wood Tank Erector: JACKI MANCILLA ([phone])[facility])[address] [place] [address] Eosinophils (Bld) [#/Vol] 0.0 10*3/uL Normal 0.0-0.5 [facility] Comment on above: Performed By: #### L [id number] ####Wood Tank Erector: JACKI MANCILLA ([phone])[facility])[address] [place] [address] [place] Eosinophils/100 WBC (Bld) 0.5 % Normal 0.0-6.0 [facility] Comment on above: Performed By: #### L [id number] ####Wood Tank Erector: JACKI [id number])[facility])[address] [place] [address] Erythrocyte distribution width (RBC) [Ratio] 13.3 % Normal 11.5-15.0 [facility] Comment on above: Performed By: #### L [id number] ####Wood Tank Erector: JACKI MANCILLA ([phone])[facility])[address] [place] [address] Hematocrit (Bld) [Volume fraction] 30.4 % Low 35.0-47.0 [facility] Comment on above: Performed By: #### L [id number] ####Wood Tank Erector: JACKI MANCILLA ([phone])[facility])[address] [place] [address] Hemoglobin (Bld) [Mass/Vol] 9.6 g/dL Low 11.7-16.0 [facility] Comment on above: Performed By: #### L [id number] ####Wood Tank Erector: JACKI MANCILLA ([phone])[facility])[address] [place] [address] IMMATURE GRANS % 0.3 % Normal 0.0-2.0 [facility] Comment on above: Performed By: #### L [id number] ####Wood Tank Erector: JACKI MANCILLA ([phone])[facility])[address] [place] [address] IMMATURE GRANS ABSOLUTE 0.0 10*3/uL Normal <0.1 [facility] Comment on above: Performed By: #### L [id number] ####Wood Tank Erector: JACKI MANCILLA ([phone])[facility])[address] [place] [address] Lymphocytes (Bld) [#/Vol] 2.0 10*3/uL Normal 1.0-4.3 [facility] Comment on above: Performed By: #### L [id number] ####Wood Tank Erector: JACKI MANCILLA ([phone])[facility])[address] [place] [address] [place] Lymphocytes/100 WBC (Bld) 32.3 % Normal 15.0-45.0 [facility] Comment on above: Performed By: #### L [id number] ####Wood Tank Erector: JACKI MANCILLA ([phone])[facility])[address] [place] [address] MCH (RBC) [Entitic mass] 28.5 pg Normal 26.0-34.0 [facility] Comment on above: Performed By: #### L [id number] ####Wood Tank Erector: JACKI MANCILLA ([phone])[facility])[address] [place] [address] MCHC 31.6 % Normal 30.5-36.0 [facility] Comment on above: Performed By: #### L [id number] ####Wood Tank Erector: JACKI MANCILLA ([phone])[facility])[address] [place] [address] MCV (RBC) [Entitic vol] 90.2 fL Normal 77.0-99.0 [facility] Comment on above: Performed By: #### L [id number] ####Wood Tank Erector: JACKI MANCILLA ([phone])[facility])[address] [place] [address] Monocytes (Bld) [#/Vol] 0.8 10*3/uL Normal 0.0-0.9 [facility] Comment on above: Performed By: #### L [id number] ####Wood Tank Erector: JACKI MANCILLA ([phone])[facility])[address] [place] [address] Monocytes/100 WBC (Bld) 12.8 % Normal 5.0-13.0 [facility] Comment on above: Performed By: #### L [id number] ####Wood Tank Erector: JACKI MANCILLA ([phone])[facility])[address] [place] [address] NEUTROPHILS ABSOLUTE 3.3 10*3/uL Normal 1.8-7.5 [facility] Comment on above: Performed By: #### L [id number] ####Wood Tank Erector: JACKI MANCILLA ([phone])[facility] ([facility])[address] [place] [address] Neutrophils/100 WBC (Bld) 53.5 % Normal 38.0-82.0 [facility] Comment on above: Performed By: #### L [id number] ####Wood Tank Erector: JACKI MANCILLA ([phone])[facility] ([facility])[address] [place] [address] NRBC 0.0 /100 WBCs Normal 0.0-2.0 [facility] Comment on above: Performed By: #### L [id number] ####Wood Tank Erector: JACKI MANCILLA ([phone])[facility])[address] [place] [address] Platelet mean volume (Bld) [Entitic vol] 11.7 fL Normal 9.0-12.7 [facility] Comment on above: Performed By: #### L [id number] ####Wood Tank Erector: JACKI MANCILLA ([phone])[facility] ([facility])[address] [place] [address] Platelets (Bld) [#/Vol] 148 10*3/uL Normal 140-440 [facility] Comment on above: Performed By: #### L [id number] ####Wood Tank Erector: JACKI MANCILLA ([phone])[facility] ([facility])[address] [place] [address] RBC (Bld) [#/Vol] 3.37 10*6/uL Low 3.80-5.20 [facility] Comment on above: Performed By: #### L [id number] ####Wood Tank Erector: JACKI MANCILLA ([phone])[facility] ([facility])[address] [place] [address] [place] WBC (Bld) [#/Vol] 6.2 10*3/uL Normal 3.6-10.7 [facility] Comment on above: Performed By: #### L [id number] ####Wood Tank Erector: JACKI MANCILLA ([phone])[facility])[address] [place] [address] Progress Noteon 12-05-2024 Progress Note Nutrition rescreen completed. Patient referred to the Dietitian due to wound consult for pressure injury. [facility] Progress Note ---- -------- Attestation signed by [...] known history of generalized epilepsy-EEG unlikely to exchange trouble shooter at this time -Some confusion about her [...] regimen Idiopat (more content not included)... Normal [facility] 30on 12-04-2024 30 Problem: Knowledge Deficit Goal: Patient/family/caregiver demonstrates understanding of disease process, treatment plan, medications, and discharge instructions Outcome: Progressing Problem: Potential for Compromised Skin Integrity Goal: Skin Integrity is Maintained or Improved Outcome: Progressing Goal: Nutritional status is improving Outcome: Progressing Problem: Urinary Incontinence Goal: Perineal skin integrity is maintained or improved Outcome: Progressing Normal [facility] [id number] 12-04-2024 [id number] Pt discussed 12-04-24 during interdisciplinary rounds. Pt admitted [facility] due to seizures. Pt has a history of seizure disorder. No needs anticipated but SW available as needs arise. [facility] BASIC METABOLIC PANELon 11-16 Anion gap [Moles/Vol] 6 mmol/L Normal 3-13 [facility] Comment on above: Performed By: #### L AB24, LAB15 ####Wood Tank Erector: JACKI MANCILLA ([phone])[facility])[address] [place] [address] Calcium [Mass/Vol] 7.8 mg/dL Low 8.8-10.0 [facility] Comment on above: Performed By: #### L AB24, LAB15 ####Wood Tank Erector: JACKI MANCILLA ([phone])[facility] ([facility])[address] [place] [address] [place] Chloride [Moles/Vol] 113 mmol/L High 98-107 [facility] Comment on above: Performed By: #### L AB24, LAB15 ####Wood Tank Erector: JACKI MANCILLA ([phone])[facility] ([facility])[address] [place] [address] CO2 [Moles/Vol] 21 mmol/L Low 23-31 [facility] Comment on above: Performed By: #### L AB24, LAB15 ####Wood Tank Erector: JACKI MANCILLA ([phone])[facility] ([facility])[address] [place] [address] Creatinine [Mass/Vol] 0.73 mg/dL Normal 0.57-1.11 [facility] Comment on above: Performed By: #### L AB24, LAB15 ####Wood Tank Erector: JACKI MANCILLA ([phone])[facility])[address] [place] [address] GLOMERULAR FILTRATION RATE ML/MIN/1.73 SQ M.PREDICTED 84.8 mL/min/1.73m*2 Normal >60.0 [facility] Comment on above: Result Comment: Calc ulation based on the Chronic Kidney Disease Epidemiology Collaboration (CKD-EPI) equation refit without adjustment for race Performed By: #### L AB24, LAB15 ####Wood Tank Erector: JACKI MANCILLA ([phone])[facility])[address] [place] [address] Glucose [Mass/Vol] 97 mg/dL Normal 82-115 [facility] Comment on above: Performed By: #### L AB24, LAB15 ####Wood Tank Erector: JACKI [id number])[facility] ([facility])[address] [place] [address] Potassium [Moles/Vol] 3.8 mmol/L Normal 3.5-5.1 [facility] Comment on above: Result Comment: [facility] potassium values may be up to 0.5 mmol/L lower than serum values. Performed By: #### L AB24, LAB15 ####Wood Tank Erector: JACKI MANCILLA ([phone])[facility] ([facility])[address] [place] [address] Sodium [Moles/Vol] 140 mmol/L Normal 136-145 [facility] Comment on above: Performed By: #### L AB24, LAB15 ####Wood Tank Erector: JACKI MANCILLA ([phone])[facility] ([facility])[address] [place] [address] Urea nitrogen [Mass/Vol] 21 mg/dL Normal 9-23 [facility] Comment on above: Performed By: #### L AB24, LAB15 ####Wood Tank Erector: JACKI MANCILLA ([phone])[facility])[address] [place] [address] Basic metabolic 1998 panelon 12-04-2024 Anion gap [Moles/Vol] 6 mmol/L 3 - 13 mmol/L [facility] Calcium [Mass/Vol] 7.8 mg/dL Low 8.8 - 10. 0 mg/dL [facility] Chloride [Moles/Vol] 113 mmol/L High 98 - 10 7 mmol/L [facility] CO2 [Moles/Vol] 21 mmol/L Low 23 - 31 mmol/L [facility] Creatinine [Mass/Vol] 0.73 mg/dL 0.57 - 1.11 mg/dL [facility] GFR/1.73 sq M.predicted (S/P/Bld) [Vol rate/Area] 84.8 mL/min - PINF [facility] Comment on above: Calculation based on the Chronic Kidney Disease Epidemiology Collaboration (CKD-EPI) equation refit without adjustment for race Glucose [Mass/Vol] 97 mg/dL 82 - 115 mg/dL [facility] Interpretation and review of laboratory results Abnormal [facility] Potassium [Moles/Vol] 3.8 mmol/L 3.5 - 5.1 mmol/L [facility] Comment on above: Plasma potassium radha ues may be up to 0.5 mmol/L lower than serum values. Sodium [Moles/Vol] 140 mmol/L 136 - 145 mmol/L [facility] Urea nitrogen [Mass/Vol] 21 mg/dL 9 - 23 mg/dL [facility] CBC W Auto Differential pane l (Bld)on 12-04-2024 Basophils (Bld) [#/Vol] 0 10*3/uL 0.0 - 0.2 10*3/uL [facility] Basophils/100 WBC (Bld) 0.3 % 0.0 - 2.0 % [facility] Eosinophils (Bld) [#/Vol] 0 10*3/uL 0.0 - 0.5 10*3/uL [facility] Eosinophils/100 WBC (Bld) 0 % 0.0 - 6.0 % [facility] Erythrocyte distribution width (RBC) [Ratio] 13.4 % 11.5 - 15.0 % [facility] Hematocrit (Bld) [Volume fraction] 31.7 % Low 35.0 - 47.0 % [facility] Hemoglobin (Bld) [Mass/Vol] 10.3 g/dL Low 11.7 - 16.0 g/dL [facility] Immature granulocytes (Bld) [#/Vol] 0 10*3/uL NINF - 0.1 10*3/uL [facility] Immature granulocytes/100 WBC (Bld) 0.4 % 0.0 - 2.0 % [facility] Interpretation and review of laboratory results Abnormal [facility] Lymphocytes (Bld) [#/Vol] 1.2 10*3/uL 1.0 - 4.3 10*3/uL [facility] Lymphocytes/100 WBC (Bld) 16.4 % 15.0 - 45.0 % [facility] MCH (RBC) [Entitic mass] 28.9 pg 26. 0 - 34.0 pg [facility] MCHC (RBC) [Mass/Vol] 32.5 % 30.5 - 36.0 % [facility] MCV (RBC) [Entitic vol] 89 fL 77.0 - 99.0 fL [facility] Monocytes (Bld) [#/Vol] 0.8 10*3/uL 0.0 - 0.9 10*3/uL [facility] Monocytes/100 WBC (Bld) 10.5 % 5.0 - 13.0 % [facility] Neutrophils (Bld) [#/Vol] 5.4 10*3/uL 1.8 - 7.5 10*3/uL [facility] Neutrophils/100 WBC (Bld) 72.4 % 38.0 - 82.0 % [facility] Nucleated RBC/100 WBC (Bld) [Ratio] 0 % [facility] Platelet mean volume (Bld) [Entitic vol] 11.9 fL 9.0 - 12.7 fL [facility] Platelets (Bld) [#/Vol] 150 10*3/uL 140 - 440 10*3/uL [facility] RBC (Bld) [#/Vol] 3.56 10*6/uL Low 3.80 - 5.20 10*6/uL [facility] WBC (Bld) [#/Vol] 7.5 10*3/uL 3.6 - 10.7 10*3/uL [facility] CBC WITH AUTO DIFFERENTIALon 12-04-2024 Basophils (Bld) [#/Vol] 0.0 10*3/uL Normal 0.0-0.2 [facility] Comment on above: Performed By: #### L [id number] ####Wood Tank Erector: JACKI MANCILLA ([phone])[facility])[address] [place] [address] Basophils/100 WBC (Bld) 0.3 % Normal 0.0-2.0 [facility] Comment on above: Performed By: #### L [id number] ####Wood Tank Erector: JACKI MANCILLA ([phone])[facility] ([facility])[address] [place] [address] [place] Eosinophils (Bld) [#/Vol] 0.0 10*3/uL Normal 0.0-0.5 [facility] Comment on above: Performed By: #### L [id number] ####Wood Tank Erector: JACKI MANCILLA ([phone])[facility] ([facility])[address] [place] [address] [place] Eosinophils/100 WBC (Bld) 0.0 % Normal 0.0-6.0 [facility] Comment on above: Performed By: #### L [id number] ####Wood Tank Erector: JACKI MANCILLA ([phone])[address] Erythrocyte distribution width (RBC) [Ratio] 13.4 % Normal 11.5-15.0 [facility] Comment on above: Performed By: #### L [id number] ####Wood Tank Erector: JACKI MANCILLA ([phone])[address] Hematocrit (Bld) [Volume fraction] 31.7 % Low 35.0-47.0 [facility] Comment on above: Performed By: #### L [id number] ####Wood Tank Erector: JACKI MANCILLA ([phone])[address] Hemoglobin (Bld) [Mass/Vol] 10.3 g/dL Low 11.7-16.0 [facility] Comment on above: Performed By: #### L [id number] ####Wood Tank Erector: JACKI MANCILLA ([phone])[address] IMMATURE GRANS % 0.4 % Normal 0.0-2.0 [facility] Comment on above: Performed By: #### L [id number] ####Wood Tank Erector: JACKI MANCILLA ([phone])[address] IMMATURE GRANS ABSOLUTE 0.0 10*3/uL Normal <0.1 [facility] Comment on above: Performed By: #### L [id number] ####Wood Tank Erector: JACKI MANCILLA ([phone])[address] Lymphocytes (Bld) [#/Vol] 1.2 10*3/uL Normal 1.0-4.3 [facility] Comment on above: Performed By: #### L [id number] ####Wood Tank Erector: JACKI MANCILLA ([phone])[facility])[address] [place] [address] Lymphocytes/100 WBC (Bld) 16.4 % Normal 15.0-45.0 [facility] Comment on above: Performed By: #### L [id number] ####Wood Tank Erector: JACKI MANCILLA ([phone])[facility])[address] [place] [address] MCH (RBC) [Entitic mass] 28.9 pg Normal 26.0-34.0 [facility] Comment on above: Performed By: #### L [id number] ####Wood Tank Erector: JACKI MANCILLA ([phone])[facility])[address] [place] [address] MCHC 32.5 % Normal 30.5-36.0 [facility] Comment on above: Performed By: #### L [id number] ####Wood Tank Erector: JACKI MANCILLA ([phone])[facility] ([facility])[address] [place] [address] MCV (RBC) [Entitic vol] 89.0 fL Normal 77.0-99.0 [facility] Comment on above: Performed By: #### L [id number] ####[employer] Erector: JACKI MANCILLA ([phone])[facility])[address] [place] [address] Monocytes (Bld) [#/Vol] 0.8 10*3/uL Normal 0.0-0.9 [facility] Comment on above: Performed By: #### L [id number] ####Wood [employer] Erector: JACKI MANCILLA ([phone])[facility])[address] [place] [address] Monocytes/100 WBC (Bld) 10.5 % Normal 5.0-13.0 [facility] Comment on above: Performed By: #### L [id number] ####[employer] Erector: JACKI MANCILLA ([phone])[facility])[address] [place] [address] NEUTROPHILS ABSOLUTE 5.4 10*3/uL Normal 1.8-7.5 [facility] Comment on above: Performed By: #### L [id number] ####Wood Tank Erector: JACKI MANCILLA ([phone])[facility] ([facility])[address] [place] [address] Neutrophils/100 WBC (Bld) 72.4 % Normal 38.0-82.0 [facility] Comment on above: Performed By: #### L [id number] ####[employer] E[employer]ctor: JACKI MANCILLA ([phone])[facility] ([facility])[address] [place] [address] NRBC 0.0 /100 WBCs Normal 0.0-2.0 [facility] Comment on above: Performed By: #### L [id number] ####[employer] E[employer]ctor: JACKI MANCILLA ([phone])[facility] ([facility])[address] [place] [address] Platelet mean volume (Bld) [Entitic vol] 11.9 fL Normal 9.0-12.7 [facility] Comment on above: Performed By: #### L [id number] ####[employer] E[employer]ctor: JACKI MANCILLA ([phone])[facility] ([facility])[address] [place] [address] Platelets (Bld) [#/Vol] 150 10*3/uL Normal 140-440 [facility] Comment on above: Performed By: #### L [id number] ####[employer] E[employer]ctor: JACKI MANCILLA ([phone])[facility] [facility])[address] [place] [address] [place] RBC (Bld) [#/Vol] 3.56 10*6/uL Low 3.80-5.20 [facility] Comment on above: Performed By: #### L [id number] ####[employer]: JACKI MANCILLA ([phone])[facility] ([facility])[address] [place] [address] [place] WBC (Bld) [#/Vol] 7.5 10*3/uL Normal 3.6-10.7 [facility] Comment on above: Performed By: #### L [id number] ####[employer]: JACKI MANCILLA ([phone])[facility] ([address] HEAD WO IV CONTRASTon CT [...] EST Recurrent seizure with transient AMS Normal [facility] CT Head WO contraston 2024 No acute intracranial abnormalities or significant change from the prior study. Report Dictated on Electronically Signed By: Arpit Russo MD Electronically Signed Date/Time: 12/04/2024 2:43 PM [facility] Patient Name: KATHERYN YIP : 1945 [...] included paranasal sinuses and orbits are normal. [facility] Arpit Russo M D - [...] Electronically Signed Date/Time: 12/04/2024 2:43 PM EST [facility] Radiology Study observation (narrative) Evgen CT Head WO contrastOrdered B y: Arpit Russo on 12-04-2024 Evgen Work Phone: Consulton 12-04-2024 Consult ---- -------- [...] tremors sensation: intact to light touch cerebellar: [id number] slow but intact gait: deferred secondary to [...] known history of generalized epilepsy-EEG unlikely to exchange trouble shooter at this time -Some confusion about her [...] or meningismus -Will continue to monitor for PICK UP infectious symptoms I spent total time 80 minutes reviewing previous notes, test results, and face to face with the patient discussing the diagnosis and importance of compliance with the treatment plan as well as documenting on the day of the visit. -------- General Neurology Consult Patient: Katheryn Chino Date of : 1945 Acct: [id number] PCP: Orville Mendoza DO Date of Admission: 12/03/2024 Date of Service: Pt seen/examined on 12/04/24 Chief Complaint: Breakthrough seizure History Of Present Illness: 79 y.o. female with past medical history significant for idiopathic generalized epilepsy (since childhood), cerebellar atrophy (on MRI in 2018, thought to be 2/2 chronic Dilantin use), wheelchair dependence, chronic dysarthria, hypothyroidism who presented from [facility] to [facility] 12/03 with complaint of breakthrough seizure. Patient follows with Dr. Jimenez from [facility] and has been having generalized tonic-clonic seiz (more content not included)... Normal [facility] LACOSAMIDE (BKR QUEST)on QUEST LACOSAMIDE <0.5 Normal Ev[facility] Comment on above: Result Comment: (Not e) Expected concentrations of Lacosamide in patients receiving recommended daily dosages: Up to 15.0 mcg/mL.Toxic range not established. This test was developed and its analytical performance characteristics have been determined by [employer]. It has not been cleared or approved by the FDA. This assay has been validated pursuant to the CLIA regulations and is used for clinical purposes. [employer] [employer] [address] [place] [address],[address] [place] [address] Jeff Gutiérrez MD, PhD Test performed by [employer] [address] [place] [address] [address] [place] [address] [employer]: Jeff Gutiérrez MD, PhD Test Reported by [employer] [facility], [facility], [address] [place] [address] Jorge L Guerrero M.D., Ph.D., Director of Laboratories , CLIA [id number] Performed By: #### L [id number] #### [employer] ([facility]) [address] [place] [address] [facility] - Drug toxicology on 12-04-2024 Valproate [Mass/Vol] 18 ug/mL Low 50 - 12 5 ug/mL Evgen No Panel Informationon 12-04 Interpretation and review of laboratory results Abnormal Evgen Toxicity is seen at concentrations >175 ug/mL [facility] Nursing Noteon 12-04-2024 Nursing Note Wound Care consulted for Pressure Injury Prevention. Pt's Melo score= 16 on 12/04 Pt's pressure points assessed. Pt sitting in chair. OT present in room and assisted pt with standing for assessment of buttocks/coccyx. Pt's Heels, Buttocks/coccyx, Back, Elbows, Occiput and ears all intact. Prevention Measures in place, including: [place] sheet with pillows, Foam heel protectors (obtained [...] concerns. Aliza Goins, RN, BSN, CWCN Normal [facility] Progress Noteon 12-04-2024 Progress Note Patient seen and examined at bedside. Refer to Dr. Garza H&P for further details. See new orders. Receiving abx for likely UTI. From facility. Neurology consulted for breakthrough seizure. Denise Hair D.O. Division of Hospitalist Medicine Acute [facility] Normal [facility] Respiratory pathogens DNA an d RNA panel RUTH+non-probe (Nph)on 12-04-2024 Adenovirus Not detected Not Detected [facility] B. pertussis DNA RUTH+probe Ql (Unsp spec) Not detected Not Detected [facility] Bordetella parapertussis Not detected Not Detected [facility] Chlamydia pneumoniae Not detected Not Detected [facility] Coronavirus 229E Not detected Not Detected [facility] Coronavirus HKU1 Not detected Not Detected [facility] Coronavirus NL63 Not detected Not Detected [facility] Coronavirus OC43 Not detected Not Detected [facility] FLUAV RNA RUTH+non-probe Ql (Nph) Not detected Not Detected [facility] FLUBV RNA RUTH+non-probe Ql (Nph) Not detected Not Detected [facility] Human Metapneumovirus Not detected Not Detected [facility] Human Rhinovirus/Enterovirus Not detected Not Detected [facility] Interpretation and review of laboratory results Normal [facility] Mycoplasma pneumoniae Not detected Not Detected [facility] Parainfluenza 1 Not detected Not Detected [facility] Parainfluenza 2 Not detected Not Detected [facility] Parainfluenza 3 Not detected Not Detected [facility] Parainfluenza 4 Not detected Not Detected [facility] Respiratory Syncytial Virus Not detected Not Detected [facility] SARS-CoV-2 (COVID-19) RNA RUTH+non-probe Ql (Nph) Not detected Not Detected [facility] Methodology: Multipl ex PCR [facility] VALPROIC ACID TOTALon 2024 VALPROIC ACID 18 ug/mL Low 50-125 [facility] Comment on above: Result Comment: RD Chu COMMENTS: Toxicity is seen at concentrations >175 ug/mL Performed By: #### L AB24, LAB15 ####[employer]: JACKI MANCILLA ([phone])[facility] ([address] VALPROIC ACID TOTAL AND FREE (BKR [facility]ST)on 12-04-2024 [facility] VALPROIC ACID 20.4 mg/L Low 50.0-100.0 [facility] Comment on above: Result Comment: Test Performed by Reji Álvarez, [employer] [facility], [address] [place] [address] Jorge L Guerrero M.D., Ph.D., Director of Laboratories , [place] [id number] Performed By: #### L [id number] ####[facility] ([employer])[id number] [place], [facility] VALPROIC ACID, FREE <4.0 Low 4.8-17.3 [facility] Comment on above: Result Comment: Note: Non-linear drug binding properties result in the fraction of Free Valproic Acid increasing as total drug increases. The free fraction may range from 5% to 25% for the total drug range of 30-160 mg/L. Performed By: #### L AB172 ####[facility] ([employer])[id number] [place], [facility] Absolute lymphocyte countOrd ered By: Damir Mckee on 12-03-2024 Lymphocytes Auto (Unsp spec) [#/Vol] 0.66 10*3/uL Low 0.83-4.51 [facility] Absolute neutrophil countOrd ered By: Damir Mckee on 12-03-2024 Neutrophils (Bld) [#/Vol] 12.4 10*3/uL High 2.0-7.7 [facility] Automated lymphocyte count a s percentage of total leukocytesOrdered By: Damir Mckee on 12-03-2024 Lymphocytes/100 WBC Auto (Unsp spec) 4.8 % Low 19-41 [facility] BLOOD CULTUREon 12-03-2024 Bacteria identified Cx Nom (Bld) BLOOD CULTURE Reference No growth at 5 days ORDER COMMENTS: Blood Collection Site: Left Forearm [ S = SUSCEPTIBLE R = RESISTANT I = INTERMEDIATE S-DD = Susceptible-dose dependent NS = Non-susceptible NO = No Interpretation ] Normal [facility] Comment on above: Performed By: #### L AB239, [id number] #### [employer]: JACKI MANCILLA ([phone]) [facility]) [address] [place] [address] Bacteria identified Cx Nom (Bld) BLOOD CULTURE Reference No growth at 5 days ORDER COMMENTS: Blood Collection Site: Left Hand [ S = SUSCEPTIBLE R = RESISTANT I = INTERMEDIATE S-DD = Susceptible-dose dependent NS = Non-susceptible NO = No Interpretation ] Normal [facility] Comment on above: Performed By: #### L [id number] ####[employer]: JACKI MANCILLA ([phone])[facility])[address] [place] [address] Basic Metabolic Profile (BMP )on 12-03-2024 BUN/CRE 29.9 RATIO High 10-20 [facility] Comment on above: Performed By: #### L 500.4050, L100.0500 #### [facility] [address] [place], [address] CA,Total 7.4 mg/dL Low 8.5-10.1 [facility] Comment on above: Performed By: #### L 500.4050, L100.0500 #### [facility] [address] [place], [address] Chloride [Moles/Vol] 114 mmol/L High 98-107 [facility] Comment on above: Performed By: #### L 500.4050, L100.0500 #### [facility] [address] [place], [address] CO2 [Moles/Vol] 21.0 mmol/L Normal 21.0-32.0 [facility] Comment on above: Performed By: #### L 500.4050, L100.0500 #### [facility] [address] [place], [address] Creatinine [Mass/Vol] 0.64 mg/dL Normal 0.55-1.02 [facility] Comment on above: Result Comment: The validity of the calculated GFR GFRAA in patients over 70 years has not been determined. Clinical correlation is essential. Performed By: #### L 500.4050, L100.0500 #### [facility] [address] [place], [address] ECRCL 63.94 ml/min Normal [facility] Comment on above: Performed By: #### L 500.4050, L100.0500 #### [facility] [address] [place], [address] EST GFR - AA 116 mL/min Normal >60 [facility] Comment on above: Result Comment: Afri can Barbadian GFR Calc Performed By: #### L 500.4050, L100.0500 #### [facility] [address] [place], [address] GAP 8 Normal 5-15 [facility] Comment on above: Performed By: #### L 500.4050, L100.0500 #### [facility] [address] [place], [address] GFR/1.73 sq M.predicted among non-blacks MDRD (S/P/Bld) [Vol rate/Area] 96 mL/min/{1.73_m2} Normal >60 [facility] Comment on above: Result Comment: Non- GFR Calc Performed By: #### L 500.4050, L100.0500 #### [facility] [address] [place], [address] Glucose [Mass/Vol] 141 mg/dL High 74-106 [facility] Comment on above: Result Comment: Fast ing Glucose result greater than or equal to 126 mg/dL suggests DIABETES MELLITUS per A.D.A. criteria. Performed By: #### L 500.4050, L100.0500 #### [facility] [address] [place], [address] Potassium [Moles/Vol] 3.3 mmol/L Low 3.5-5.1 [facility] Comment on above: Performed By: #### L 500.4050, L100.0500 #### [facility] [address] [place], [address] Sodium [Moles/Vol] 143 mmol/L Normal 136-145 [facility] Comment on above: Performed By: #### L 500.4050, L100.0500 #### [facility] [address] [place], [address] Urea nitrogen [Mass/Vol] 19 mg/dL High 7-18 [facility] Comment on above: Performed By: #### L 500.4050, L100.0500 #### [facility] [address] [place], [address] Basophil percentageOrdered B y: Damir Mckee on 12-03-2024 Basophils/100 WBC (Bld) 0.3 % 0-1 [facility] Blood urea nitrogen (BUN)/cr eatinine ratioOrdered By: Damir Mckee on 12-03-2024 Urea nitrogen/Creatinine [Mass ratio] 29.9 mg/mg High 10-20 [facility] CBC W Auto Differential pane l (Bld)Ordered By: Charley Traore on 12-03-2024 Basophils (Bld) [#/Vol] 0 10*3/uL 0.0 - 0.2 10*3/uL [facility] Basophils/100 WBC (Bld) 0.1 % 0.0 - 2.0 % [facility] Eosinophils (Bld) [#/Vol] 0 10*3/uL 0.0 - 0.5 10*3/uL [facility] Eosinophils/100 WBC (Bld) 0 % 0.0 - 6.0 % [facility] Erythrocyte distribution width (RBC) [Ratio] 13.2 % 11.5 - 15.0 % [facility] Hematocrit (Bld) [Volume fraction] 36.9 % 35.0 - 47.0 % [facility] Hemoglobin (Bld) [Mass/Vol] 11.6 g/dL Low 11.7 - 16.0 g/dL [facility] Immature granulocytes (Bld) [#/Vol] 0.1 10*3/uL High NINF - 0.1 10*3/uL [facility] Immature granulocytes/100 WBC (Bld) 0.5 % 0.0 - 2.0 % [facility] Interpretation and review of laboratory results Abnormal [facility] Lymphocytes (Bld) [#/Vol] 0.6 10*3/uL Low 1.0 - 4.3 10*3/uL [facility] Lymphocytes/100 WBC (Bld) 5.8 % Low 15.0 - 45.0 % [facility] MCH (RBC) [Entitic mass] 28.2 pg 26. 0 - 34.0 pg [facility] MCHC (RBC) [Mass/Vol] 31.4 % 30.5 - 36.0 % [facility] MCV (RBC) [Entitic vol] 89.6 fL 77.0 - 99.0 fL [facility] Monocytes (Bld) [#/Vol] 0.6 10*3/uL 0.0 - 0.9 10*3/uL [facility] Monocytes/100 WBC (Bld) 5.9 % 5.0 - 13.0 % [facility] Neutrophils (Bld) [#/Vol] 9.6 10*3/uL High 1.8 - 7.5 10*3/uL [facility] Neutrophils/100 WBC (Bld) 87.7 % High 38.0 - 82.0 % [facility] Nucleated RBC/100 WBC (Bld) [Ratio] 0 % [facility] Platelet mean volume (Bld) [Entitic vol] 11.7 fL 9.0 - 12.7 fL [facility] Platelets (Bld) [#/Vol] 202 10*3/uL 140 - 440 10*3/uL [facility] RBC (Bld) [#/Vol] 4.12 10*6/uL 3.80 - 5.20 10*6/uL [facility] WBC (Bld) [#/Vol] 10.9 10*3/uL High 3.6 - 10.7 10*3/uL [facility] CBC W/Diff, Automatedon 11-15 Absolute Lymph 0.66 X10 3/uL Low 0.83-4.51 [facility] Comment on above: Performed By: #### L 501.8100, L501.7700, L500.4050, L100.0100 #### [facility] [address] [place], [address] Absolute Neut 12.4 X10 3/uL High 2.0-7.7 [facility] Comment on above: Performed By: #### L 501.8100, L501.7700, L500.4050, L100.0100 #### [facility] [address] [place], [address] Basophils/100 WBC (Bld) 0.3 % Normal 0-1 [facility] Comment on above: Performed By: #### L 501.8100, L501.7700, L500.4050, L100.0100 #### [facility] [address] [place], [address] Eosinophils/100 WBC (Bld) 0.0 % Normal 0-5 [facility] Comment on above: Performed By: #### L 501.8100, L501.7700, L500.4050, L100.0100 #### [facility] [address] [place], [address] Erythrocyte distribution width (RBC) [Ratio] 13.2 % Normal 11.6-14.6 [facility] Comment on above: Performed By: #### L 501.8100, L501.7700, L500.4050, L100.0100 #### [facility] [address] [place], [address] Hematocrit (Bld) [Volume fraction] 36.5 % Low 37-47 [facility] Comment on above: Performed By: #### L 501.8100, L501.7700, L500.4050, L100.0100 #### [facility] [address] [place], [address] Hemoglobin (Bld) [Mass/Vol] 11.9 g/dL Low 12.0-15.0 [facility] Comment on above: Performed By: #### L 501.8100, L501.7700, L500.4050, L100.0100 #### [facility] [address] [place], [address] IG% 0.400 Normal 0.0-0.9 [facility] Comment on above: Result Comment: IG% - Immature Granulocytes (promyelocytes, myelocytes and metamyelocytes) > 1% indicates that a LEFT SHIFT is Present. Performed By: #### L 501.8100, L501.7700, L500.4050, L100.0100 #### [facility] [address] [place], [address] Lymphocytes/100 WBC (Bld) 4.8 % Low 19-41 [facility] Comment on above: Performed By: #### L 501.8100, L501.7700, L500.4050, L100.0100 #### [facility] [address] [place], [address] MCH (RBC) [Entitic mass] 29.1 pg Normal 27.0-32.0 [facility] Comment on above: Performed By: #### L 501.8100, L501.7700, L500.4050, L100.0100 #### [facility] [address] [place], [address] MCHC (RBC) [Mass/Vol] 32.6 g/dL Normal 32-36 [facility] Comment on above: Performed By: #### L 501.8100, L501.7700, L500.4050, L100.0100 #### [facility] [address] [place], [address] MCV (RBC) [Entitic vol] 89.2 fL Normal 81-99 [facility] Comment on above: Performed By: #### L 501.8100, L501.7700, L500.4050, L100.0100 #### [facility] [address] [place], [address] Monocytes/100 WBC (Bld) 4.8 % Normal 0-10 [facility] Comment on above: Performed By: #### L 501.8100, L501.7700, L500.4050, L100.0100 #### [facility] [address] [place], [address] Neutrophils/100 WBC (Bld) 89.7 % High 47-70 [facility] Comment on above: Performed By: #### L 501.8100, L501.7700, L500.4050, L100.0100 #### [facility] [address] [place], [address] Nucleated RBC (Bld) [#/Vol] 0 10*3/uL Normal 0-5 [facility] Comment on above: Performed By: #### L 501.8100, L501.7700, L500.4050, L100.0100 #### [facility] [address] [place], [address] Platelet mean volume (Bld) [Entitic vol] 11.9 fL Normal 6.2-12.0 [facility] Comment on above: Performed By: #### L 501.8100, L501.7700, L500.4050, L100.0100 #### [facility] [address] [place], [address] Platelets (Bld) [#/Vol] 199 10*3/uL Normal 150-450 [facility] Comment on above: Performed By: #### L 501.8100, L501.7700, L500.4050, L100.0100 #### [facility] [address] [place], [address] RBC (Bld) [#/Vol] 4.09 10*6/uL Low 4.2-5.4 [facility] Comment on above: Performed By: #### L 501.8100, L501.7700, L500.4050, L100.0100 #### [facility] [address] [place], [address] RDW SD 43.0 fl Normal 35.1-43.9 [facility] Comment on above: Performed By: #### L 501.8100, L501.7700, L500.4050, L100.0100 #### [facility] [address] [place], [address] WBC (Bld) [#/Vol] 13.8 10*3/uL High 4.4-11.0 [facility] Comment on above: Performed By: #### L 501.8100, L501.7700, L500.4050, L100.0100 #### [facility] [address] [place], [address] CBC WITH AUTO DIFFERENTIALon 02-19-2025 Basophils (Bld) [#/Vol] 0.0 10*3/uL Normal 0.0-0.2 [facility] Comment on above: Performed By: #### L [id number] ####[employer]: JACKI MANCILLA ([phone])[facility] ([facility])[address] [place] [address] Basophils/100 WBC (Bld) 0.1 % Normal 0.0-2.0 [facility] Comment on above: Performed By: #### L [id number] ####[employer]: JACKI MANCILLA ([phone])[facility] ([facility])[address] [place] [address] [place] Eosinophils (Bld) [#/Vol] 0.0 10*3/uL Normal 0.0-0.5 [facility] Comment on above: Performed By: #### L [id number] ####[employer]: JACKI MANCILLA ([phone])[facility])[address] [place] [address] [place] Eosinophils/100 WBC (Bld) 0.0 % Normal 0.0-6.0 [facility] Comment on above: Performed By: #### L [id number] ####[employer]: JACKI MANCILLA ([phone])[facility])[address] [place] [address] Erythrocyte distribution width (RBC) [Ratio] 13.2 % Normal 11.5-15.0 [facility] Comment on above: Performed By: #### L [id number] ####[employer]: JACKI MANCILLA ([phone])[facility])[address] [place] [address] Hematocrit (Bld) [Volume fraction] 36.9 % Normal 35.0-47.0 [facility] Comment on above: Performed By: #### L [id number] ####[employer]: JACKI MANCILLA ([phone])[facility])[address] [place] [address] Hemoglobin (Bld) [Mass/Vol] 11.6 g/dL Low 11.7-16.0 [facility] Comment on above: Performed By: #### L [id number] ####[employer]: JACKI MANCILLA ([phone])[address] IMMATURE GRANS % 0.5 % Normal 0.0-2.0 [facility] Comment on above: Performed By: #### L [id number] ####[employer]: JACKI MANCILLA ([phone])[facility])[address] [place] [address] IMMATURE GRANS ABSOLUTE 0.1 10*3/uL High <0.1 [facility] Comment on above: Performed By: #### L [id number] ####[employer]: JACKI MANCILLA ([phone])[address] Lymphocytes (Bld) [#/Vol] 0.6 10*3/uL Low 1.0-4.3 [facility] Comment on above: Performed By: #### L [id number] ####[employer]: JACKI MANCILLA ([phone])[address] Lymphocytes/100 WBC (Bld) 5.8 % Low 15.0-45.0 [facility] Comment on above: Performed By: #### L [id number] ####[employer]: JACKI MANCILLA ([phone])[address] MCH (RBC) [Entitic mass] 28.2 pg Normal 26.0-34.0 [facility] Comment on above: Performed By: #### L [id number] ####[employer]: JACKI MANCILLA ([phone])[address] MCHC 31.4 % Normal 30.5-36.0 [facility] Comment on above: Performed By: #### L [id number] ####[employer]: JACKI MANCILLA ([phone])[facility] ([facility])[address] [place] [address] MCV (RBC) [Entitic vol] 89.6 fL Normal 77.0-99.0 [facility] Comment on above: Performed By: #### L [id number] ####[employer]: JACKI MANCILLA ([phone])[facility])[address] [place] [address] Monocytes (Bld) [#/Vol] 0.6 10*3/uL Normal 0.0-0.9 [facility] Comment on above: Performed By: #### L [id number] ####[employer]: JACKI MANCILLA ([phone])[facility])[address] [place] [address] Monocytes/100 WBC (Bld) 5.9 % Normal 5.0-13.0 [facility] Comment on above: Performed By: #### L [id number] ####[employer]: JACKI MANCILLA ([phone])[facility] ([facility])[address] [place] [address] NEUTROPHILS ABSOLUTE 9.6 10*3/uL High 1.8-7.5 [facility] Comment on above: Performed By: #### L [id number] ####[employer]: JACKI MANCILLA ([phone])[facility])[address] [place] [address] Neutrophils/100 WBC (Bld) 87.7 % High 38.0-82.0 [facility] Comment on above: Performed By: #### L [id number] ####[employer]: JACKI MANCILLA ([phone])[facility])[address] [place] [address] NRBC 0.0 /100 WBCs Normal 0.0-2.0 [facility] Comment on above: Performed By: #### L [id number] ####[employer]: JACKI MANCILLA ([phone])[facility])[address] [place] [address] Platelet mean volume (Bld) [Entitic vol] 11.7 fL Normal 9.0-12.7 [facility] Comment on above: Performed By: #### L [id number] ####[employer]: JACKI MANCILLA ([phone])[facility] ([facility])[address] [place] [address] Platelets (Bld) [#/Vol] 202 10*3/uL Normal 140-440 [facility] Comment on above: Performed By: #### L [id number] ####[employer] Tank Erector: JACKI MANCILLA ([phone])[facility] ([facility])[address] [place] [address] RBC (Bld) [#/Vol] 4.12 10*6/uL Normal 3.80-5.20 [facility] Comment on above: Performed By: #### L [id number] ####Wood Tank Erector: JACKI MANCILLA ([phone])[facility] ([facility])[address] [place] [address] WBC (Bld) [#/Vol] 10.9 10*3/uL High 3.6-10.7 [facility] Comment on above: Performed By: #### L [id number] ####Wood [employer] Erector: JACKI MANCILLA ([phone])[facility] ([facility])[address] [place] [address] Kuldip [facility]-03-20[facility]NN[facility] -------- KATHERYN CHINO ([id number]) 1945 F Date Time Provider Department 12/03/24 JAYANT JIMENEZ During your visit today, we recorded the following information about you: Franchesca Arana 12/03/2024 2:43 PM Signed Received patients seizure monitoring sheet from [facility]. Uploaded to Epic Silvia Rogers RN 12/09/2024 2:45 PM Addendum Seizure Call - spoke with nurse Katia. [facility] PH: [phone] FAX : [phone] Last Visit: 09/24/24 Next Visit: 01/15/25 Date [...] Other: patient was taken to local ED, [facility]. The patient will be transferred to [...] from the hospital. Forwarded to MARIO 2 MEGA Michaud Kelly, APRN.CNP 12/03/2024 4:11 PM Signed If no clear triggers will likely need to adjust doses. Would consider further increasing LCM to 150 mg BID Artis Hamilton APRN.Silvia Willis RN 12/04/2024 1:10 PM Signed Called the patient's facility. Left message for the nurse to call back regarding recommendations. MEGA Christianson Christina M, RN 12/04/2024 1:26 PM Signed Spoke with nurse Inman at [facility]. Informed her of recommendations to increase LCM to 150mg BID, with read back. Nurse requests rx to be faxed to the facility. [facility] PH: [phone] FAX : [phone] MEGA Christianson Kelly, APRN.DWAYNE 12/04/2024 6:15 PM [...] 150mg BID rx faxed via [facility]ax to [facility]. Confirmation received. MEGA Christianson Nancy 12/08/2024 1:33 PM Signed Rosita anthony/ [facility] LCM clarification and seizure activity; she can be reached at [phone] - ask for Katheryn's Silvia Shelley RN 12/09/2024 2:47 PM Addendum Spoke with [...] MARIO 2 for recommendations. MEGA Christianson Kelly, STONE SPLITTER.DWAYNE 12/09/2024 3:04 PM Signed She can continue [...] Christianson Kelly, (more content not included)... Normal [facility] COMPLETE URINALYSISon 2024 BACTERIA (#/HPF) IN URINE Loaded Abnormal Negative [facility] Comment on above: Performed By: #### L [id number], [id number] #### [employer] Erector: JACKI MANCILLA ([phone]) [facility] ([facility]) [address] [place] [address] BILIRUBIN, TOTAL PRESENCE IN URINE Negative Normal Negative [facility] Comment on above: Performed By: #### L [id number], [id number] #### [employer] Erector: JACKI MANCILLA ([phone]) [facility] ([facility]) [address] [place] [address] Clarity (U) Extra Turbid Abnormal Clear [facility] Comment on above: Performed By: #### L [id number], [id number] #### [employer] Erector: JACKI MANCILLA ([phone]) [facility] ([facility]) [address] [place] [address] Color (U) Yellow Normal Lt. Yellow [facility] Comment on above: Performed By: #### L [id number], [id number] #### Wood Tank Erector: JACKI MANCILLA ([phone]) [facility] ([facility]) [address] [place] [address] [place] GLUCOSE (MG/DL) IN URINE Normal Normal Nor mal (<70) [facility] Comment on above: Performed By: #### L [id number], [id number] #### [employer] Erector: JACKI MANCILLA ([phone]) [facility] [address] [place] [address] HEMOGLOBIN PRESENCE IN URINE 0.06 mg/dL Abnormal Negative [facility] Comment on above: Performed By: #### L [id number], [id number] #### Wood Tank Erector: JACKI MANCILLA ([phone]) [facility] [address] [place] [address] HYALINE CASTS (#/LPF) IN URINE SEDIMENT BY MICROSCOPY Negative Normal Negative [facility] Comment on above: Performed By: #### L [id number], [id number] #### Wood [employer] Erector: JACKI MANCILLA ([phone]) [facility] [address] [place] [address] Ketones Ql (U) Trace Abnormal Negative [facility] Comment on above: Performed By: #### L [id number], [id number] #### [employer] Erector: JACKI MANCILLA ([phone]) [facility] [address] [place] [address] LEUKOCYTE ESTERASE PRESENCE IN URINE BY TEST STRIP 500 James/uL Abnormal Negative [facility] Comment on above: Performed By: #### L [id number], [id number] #### [employer] Erector: JACKI MANCILLA ([phone]) [facility] [address] [place] [address] [place] MUCUS (#/LPF) IN URINE SEDIMENT Few Normal Negative [facility] Comment on above: Performed By: #### L [id number], [id number] #### [employer] Erector: JACKI MANCILLA ([phone]) [facility] ([facility]) [address] [place] [address] NITRITE PRESENCE IN URINE Negative Normal Negative [facility] Comment on above: Performed By: #### L [id number], [id number] #### Wood Tank Erector: JACKI MANCILLA ([phone]) [facility] [address] [place] [address] [place] NON-SQUAMOUS EPITHELIAL (#/HPF) IN URINE 3-5 Abnormal Negative [facility] Comment on above: Performed By: #### Ailyn ALMEIDA, [id number] #### [employer] Erector: JACKI MANCILLA ([phone]) [facility] ([facility]) [address] [place] [address] pH (U) 6.0 [pH] Normal 5.0-8.0 [facility] Comment on above: Performed By: #### Ailyn ALMEIDA, [id number] #### [employer] Erector: JACKI MANCILLA ([phone]) [facility] ([facility]) [address] [place] [address] Protein (U) [Mass/Vol] 100 mg/dL Abnormal Negative [facility] Comment on above: Performed By: #### Ailyn ALMEIDA, [id number] #### Wood Tank Erector: JACKI MANCILLA ([phone]) [facility] ([facility]) [address] [place] [address] [place] RBC (#/HPF) IN URINE SEDIMENT 11-25 Abnormal 0-2 [facility] Comment on above: Performed By: #### Ailyn ALMEIDA, [id number] #### [employer] Erector: JACKI MANCILLA ([phone]) [facility] ([facility]) [address] [place] [address] Specific gravity (U) [Rel density] >1.030 High 1.005-1.03 0 [facility] Comment on above: Performed By: #### Ailyn ALMEIDA, [id number] #### [employer] Erector: JACKI MANCILLA ([phone]) [facility] ([facility]) [address] [place] [address] [place] SQUAMOUS EPITHELIAL CELLS (#/HPF) IN URINE SEDIMENT 11-25 Abnormal 3-5 [facility] Comment on above: Performed By: #### Ailyn ARANGO239, [id number] #### [employer] Erector: JACKI MANCILLA ([phone]) [facility] ([facility]) [address] [place] [address] [place] UROBILINOGEN (MG/DL) IN URINE Normal Normal Normal (0-1) [facility] Comment on above: Performed By: #### L [id number], [id number] #### [employer] Tank Erector: JACKI MANCILLA ([phone]) [facility] ([facility]) [address] [place] [address] WBC (LEUKOCYTE) (#/HPF) IN URINE SEDIMENT >100 Abnormal 0-5 [facility] Comment on above: Performed By: #### L AB239, [id number] #### [employer] Erector: JACKI MANCILLA ([phone]) [facility] ([facility]) [address] [place] [address] WBC (LEUKOCYTE) CLUMPS (#/HPF) IN URINE SEDIMENT Many Abnormal Negative [facility] Comment on above: Performed By: #### L AB239, [id number] #### Wood Tank Erector: JACKI MANCILLA ([phone]) [facility]) [address] [place] [address] COMPREHENSIVE METABOLIC PANE Scottie 12-03-2024 Albumin [Mass/Vol] 3.5 g/dL Normal 3.4-4.8 [facility] Comment on above: Performed By: #### L AB17 ####Wood Tank Erector: JACKI MANCILLA ([phone])[facility])[address] [place] [address] ALP [Catalytic activity/Vol] 90 U/L Normal 40-150 [facility] Comment on above: Performed By: #### L AB17 ####Wood Tank Erector: JACKI MANCILLA ([phone])[facility])[address] [place] [address] ALT [Catalytic activity/Vol] 14 U/L Normal <30 [facility] Comment on above: Performed By: #### L AB17 ####Wood Tank Erector: JACKI MANCILLA ([phone])[address] Anion gap [Moles/Vol] 10 mmol/L Normal 3-13 [facility] Comment on above: Performed By: #### L AB17 ####Wood Tank Erector: JACKI MANCILLA ([phone])[facility])[address] [place] [address] AST [Catalytic activity/Vol] 31 U/L Normal <34 [facility] Comment on above: Performed By: #### L AB17 ####Wood Tank Erector: JACKI MANCILLA ([phone])[facility] ([facility])[address] [place] [address] Bilirubin [Mass/Vol] 0.5 mg/dL Normal <1.2 [facility] Comment on above: Performed By: #### L AB17 ####Wood Tank Erector: JACKI MANCILLA ([phone])[facility] ([facility])[address] [place] [address] Calcium [Mass/Vol] 8.5 mg/dL Low 8.8-10.0 [facility] Comment on above: Performed By: #### L AB17 ####Wood Tank Erector: JACKI MANCILLA ([phone])[facility] ([facility])[address] [place] [address] Chloride [Moles/Vol] 109 mmol/L High 98-107 [facility] Comment on above: Performed By: #### L AB17 ####Wood Tank Erector: JACKI MANCILLA ([phone])[facility] ([facility])[address] [place] [address] CO2 [Moles/Vol] 22 mmol/L Low 23-31 [facility] Comment on above: Performed By: #### L AB17 ####Wood Tank Erector: JACKI MANCILLA ([phone])[facility])[address] [place] [address] Creatinine [Mass/Vol] 0.82 mg/dL Normal 0.57-1.11 [facility] Comment on above: Performed By: #### L AB17 ####Wood Tank Erector: JACKI MANCILLA ([phone])[facility])[address] [place] [address] GLOMERULAR FILTRATION RATE ML/MIN/1.73 SQ M.PREDICTED 73.8 mL/min/1.73m*2 Normal >60.0 [facility] Comment on above: Result Comment: Calc ulation based on the Chronic Kidney Disease Epidemiology Collaboration (CKD-EPI) equation refit without adjustment for race Performed By: #### L AB17 ####Wood Tank Erector: JACKI MANCILLA ([phone])[facility])[address] [place] [address] Glucose [Mass/Vol] 112 mg/dL Normal 82-115 [facility] Comment on above: Performed By: #### L AB17 ####Wood Tank Erector: JACKI MANCILLA ([phone])[facility])[address] [place] [address] Potassium [Moles/Vol] 4.1 mmol/L Normal 3.5-5.1 [facility] Comment on above: Result Comment: [facility] potassium values may be up to 0.5 mmol/L lower than serum values. Performed By: #### L AB17 ####Wood Tank Erector: JACKI MANCILLA ([phone])[facility])[address] [place] [address] Protein [Mass/Vol] 7.1 g/dL Normal 6.4-8.3 [facility] Comment on above: Performed By: #### L AB17 ####Wood Tank Erector: JACKI MANCILLA ([id number])[facility])[address] [place] [address] Sodium [Moles/Vol] 141 mmol/L Normal 136-145 [facility] Comment on above: Performed By: #### L AB17 ####Wood Tank Erector: JACKI MANCILLA ([phone])[facility])[address] [place] [address] Urea nitrogen [Mass/Vol] 23 mg/dL Normal 9-23 [facility] Comment on above: Performed By: #### L AB17 ####Wood Tank Erector: JACKI MANCILLA ([phone])[facility])[address] [place] [address] CT ABDOMEN PELVIS W CONTRAST on 12-03-2024 [...] EST Abdominal pain, acute, nonlocalized, Nausea/vomiting Normal [facility] CT Abdomen and Pelvis W cont rast Srikanth 12-03-2024 1. Possible cystitis, correlate with urinalysis. 2. Gallstones. Report Dictated on Electronically Signed By: Wilber Christianson MD Electronically Signed Date/Time: 12/03/2024 9:33 PM [facility] Patient Name: [...] inflamed, correlate for possible cystitis. Normal appendix. [facility] Wilber Christianson MD - 12/03/2024 [...] Electronically Signed Date/Time: 12/03/2024 9:33 PM EST [facility] Study observation (narrative) [facility] CT Abdomen and Pelvis W cont rast IVOrdered By: Wilber Christianson on 12-03-2024 [facility] Work Phone: Carbon dioxide measurementOr dered By: Damir Mckee on 12-03-2024 CO2 [Moles/Vol] 21.0 mmol/L 21.0-32.0 [facility] Chest 1 View (Portable)on Chest 1 View (Portable) [facility] Imaging Services [address] [address] Chest 1 View (Portable) MR#: [id number] Acct: [id number] Name: KATHERYN CHINO Rep #: [id number] : 1945 F 79 From: Darwin grigsby MD PCP: Dr. Todd Velasquez Sr., DO Status: REG ER Study: Chest 1 View (Portable) Date of Exam: 12/03/24 Exam# [id number] Ordering Dr: Damir Mckee MD PROCEDURE: CHEST [...] Elevation of the right hemidiaphragm. Reading Location: [place] [address] CC: Dr. Todd Velasquez Sr., DO; Dr. Damir Mckee MD Unit Director: Signed Normal [facility] Chloride measurementOrdered By: Damir Mckee on 12-03-2024 Chloride [Moles/Vol] 114 mmol/L High 98-107 [facility] Comprehensive metabolic 1998 panelon 12-03-2024 Albumin [Mass/Vol] 3.5 g/dL 3.4 - 4.8 g/dL [facility] ALP [Catalytic activity/Vol] 90 U/L 40 - 150 U/L [facility] ALT [Catalytic activity/Vol] 14 U/L NINF - 30 U/L [facility] Anion gap [Moles/Vol] 10 mmol/L 3 - 13 mmol/L [facility] AST [Catalytic activity/Vol] 31 U/L NINF - 34 U/L [facility] Bilirubin [Mass/Vol] 0.5 mg/dL NINF - 1.2 mg/dL [facility] Calcium [Mass/Vol] 8.5 mg/dL Low 8.8 - 10. 0 mg/dL [facility] Chloride [Moles/Vol] 109 mmol/L High 98 - 10 7 mmol/L [facility] CO2 [Moles/Vol] 22 mmol/L Low 23 - 31 mmol/L [facility] Creatinine [Mass/Vol] 0.82 mg/dL 0.57 - 1.11 mg/dL [facility] GFR/1.73 sq M.predicted (S/P/Bld) [Vol rate/Area] 73.8 mL/min - PINF [facility] Comment on above: Calculation based on the Chronic Kidney Disease Epidemiology Collaboration (CKD-EPI) equation refit without adjustment for race Glucose [Mass/Vol] 112 mg/dL 82 - 115 mg/dL [facility] Interpretation and review of laboratory results Abnormal [facility] Potassium [Moles/Vol] 4.1 mmol/L 3.5 - 5.1 mmol/L [facility] Comment on above: Plasma potassium radha ues may be up to 0.5 mmol/L lower than serum values. Protein [Mass/Vol] 7.1 g/dL 6.4 - 8.3 g/dL [facility] Sodium [Moles/Vol] 141 mmol/L 136 - 145 mmol/L [facility] Urea nitrogen [Mass/Vol] 23 mg/dL 9 - 23 mg/dL [facility] ECG 12-LEADon 12-03-2024 ECG 12-LEAD IMPRESSION: Sinus rhythm Borderline T abnormalities, anterior leads Electronically Signed On 12-03-2024 22:55:54 EST by Roxanna Perez [facility] ED Provider Noteon ED Provider Note Emergency Department Encounter [facility] EMERGENCY DEPT [...] the emergency department as a transfer from [place] for breakthrough seizure. Patient reports she has [...] Miriam Hennessy DO [employer] Miriam Jose Gerhard, DO 12/04/24 0003 [facility] ED Provider Note EMERGENCY DEPARTMENT ENCOUNTER Pt Name: Katheryn Chino Birthdate 1945 Date of evaluation: 12/03/2024 ED Provider: Rancho Diamond PA-C CHIEF COMPLAINT Chief Complaint Patient presents with Seizures Amparo transfer. Pt from [facility] for 38 minute witnessed seizure [...] the seizure. They did take her to [facility] where she was supposedly observed there [...] Insecurity: No Food Insecurity (08/18/2024) Received from [facility] Hunger Vital Sign Worried About Running Out of Food in the Last Year: Never true Ran Out of Food in the Last Year: Never true Transportation Needs: No Transportation Needs (08/18/2024) Received from [facility] PRAPARE - Transportation Lack of Transportation (Medical): No Lack of Transportation (Non-Medical): No Housing Stability: Low Risk (08/18/2024) Received from [facility] Housing Stability Vital Sign Unable to Pay for Housing in the Last Year: No Number of Times Moved in the Last Year: 0 Homeless in the Last Year: No SCREENINGS [place] Coma Scale Best Eye Response: Spontaneous Best Verbal Response: Confused Best Motor Response: Follows commands [place] Coma Scale Score: 14 PHYSICAL EXAM ED [...] and oriented (more content not included)... Normal [facility] Emergency Department Summary on 12-03-2024 Emergency Department Summary [facility] Medical Records Department [address] [place] [address] Emergency Department Summary 12/03/24 MR#: [id number] Acct: [id number] Name: KATHERYN CHINO Rep #: [id number] : 1945 79 From: Damir Mckee MD [...] similar symptoms: Yes Recent Illness/Hospitalization: No PFSH PFSH Medical History Dysphagia, oropharyngeal phase Generalized [...] Unobtainable: du (more content not included)... Normal [facility] Eosinophil percentageOrdered By: Damir Mckee on 12-03-2024 Eosinophils/100 WBC (Bld) 0.0 % 0-5 [facility] Erythrocyte distribution wid th (RBC) [Ratio]Ordered By: Damir Mckee on 12-03-2024 Erythrocyte distribution width (RBC) [Entitic vol] 43.0 fL 35.1-43.9 [facility] Erythrocyte distribution wid th ratioOrdered By: Damir Mckee on 12-03-2024 Erythrocyte distribution width (RBC) [Ratio] 13.2 % 11.6-14.6 [facility] Erythrocyte distribution wid th standard deviationOrdered By: Damir Mckee on 12-03-2024 Erythrocyte distribution width (RBC) [Ratio] 43.0 fl 35.1-43.9 [facility] Estimated glomerular filtrat ion rate (GFR) AmericanOrdered By: Damir Mckee on 12-03-2024 Estimated GFR (MDRD) Amer 116 mL/min >60 [facility] Comment on above: GFR Calc Estimation of creatinine ryan aranceOrdered By: Damir Mckee on 12-03-2024 Estimated Creatinine Clearance Calc 63.94 ml/min [facility] Glomerular filtration rate ( GFR) estimationOrdered By: Damir Mckee on 12-03-2024 Estimated GFR (MDRD) Non-Af Amer 96 mL/min >60 [facility] Comment on above: Non- GFR Calc GFR/1.73 sq M.predicted among non-blacks MDRD (S/P/Bld) [Vol rate/Area] 96 mL/min/{1.73_m2} >60 [facility] Comment on above: Non- GFR Calc Glucose measurementOrdered B y: Damir Mckee on 12-03-2024 Glucose [Mass/Vol] 141 mg/dL High 74-106 [facility] Comment on above: Fasting Glucose resu lt greater than or equal to 126 mg/dL suggests DIABETES MELLITUS per A.D.A. criteria. Hematocrit Auto (Bld) [Volum e fraction]Ordered By: Damir Ledesmao on 12-03-2024 Hematocrit (Bld) [Volume fraction] 36.5 % Low 37-47 [facility] Hemoglobin measurementOrdere d By: Damirsharlene Ledesmao on 12-03-2024 Hemoglobin (Bld) [Mass/Vol] 11.9 g/dL Low 12.0-15.0 [facility] Immature granulocytes/100 WB C Auto (Bld)Ordered By: Damir Mckee on 12-03-2024 Immature granulocytes/100 WBC (Bld) 0.400 % 0.0-0.9 [facility] Comment on above: IG% - Immature Granu locytes (promyelocytes, myelocytes and metamyelocytes) > 1% indicates that a LEFT SHIFT is Present. LACTIC ACID WITH REFLEXon Lactate [Moles/Vol] 1.6 mmol/L Normal 0.5-2.2 [facility] Comment on above: Performed By: #### L [id number] ####[employer] E[employer]: JACKI MANCILLA ([phone])[address] Laboratory - Chemistry and C hemistry - challengeon 12-03-2024 Lactate [Moles/Vol] 1.6 mmol/L 0.5 - 2. 2 mmol/L [facility] - Drug toxicology on 12-03-2024 Phenytoin [Mass/Vol] 14.1 ug/mL 10.0 - 20.0 ug/mL [facility] Laboratory - Microbiology an d Antimicrobial susceptibilityon 12-03-2024 FLUAV RNA RUTH+probe Ql (Resp) Not detected Not Detected [facility] FLUBV RNA RUTH+probe Ql (Resp) Not detected Not Detected [facility] RSV RNA RUTH+probe Ql (Resp) Not detected Not Detected [facility] SARS-CoV-2 (COVID-19) RNA RUTH+probe Ql (Resp) Not detected Not Detected [facility] Lactic Acidon 12-03-2024 Lactate [Moles/Vol] 2.8 mmol/L Invalid Interpretation Code 0.4-1.9 [facility] Comment on above: Result Comment: Crit ical Result(s) Called at: 17:21:47 12/03/2024 by: ISSAC KEARNEY TO [address] Results read back by same. Performed By: #### L 501.8100, L501.7700, L500.4050, L100.0100 #### [facility] [address] [place], [place], [id number] Lactate [Moles/Vol] 4.7 mmol/L Invalid Interpretation Code 0.4-1.9 [facility] Comment on above: Order Comment: 211-1 Result Comment: Crit ical Result(s) Called at: 13:02:25 12/03/2024 by: Fauzia Allred to Katia Hackett. Results read back by same. Performed By: #### L 500.4050, L100.0500 #### [facility] [address] [place], [place], [id number] Lactic acid measurementOrder ed By: Damir Mckee on 12-03-2024 Lactate [Moles/Vol] 2.8 mmol/L High 0.4-2.0 [facility] Comment on above: Critical Result(s) C alled at: 17:21:47 12/03/2024 by: ISSAC KEARNEY TO [address] Results read back by same. Lymphocytes Auto (Unsp spec) [#/Vol]Ordered By: Damir Mckee on 12-03-2024 Lymphocytes (Bld) [#/Vol] 0.66 10*3/uL Low 0.83-4.51 [facility] Lymphocytes/100 WBC Auto (Un sp spec)Ordered By: Damir Mckee on 12-03-2024 Lymphocytes/100 WBC (Bld) 4.8 % Low 19-41 [facility] MCV (mean corpuscular volume ) determinationOrdered By: Damirsharlene Ledesmao on 12-03-2024 MCV (RBC) [Entitic vol] 89.2 fL 81-99 [facility] Mean corpuscular hemoglobin (MCH) determinationOrdered By: Damirsharlene Ledesmao on 12-03-2024 MCH (RBC) [Entitic mass] 29.1 pg 27.0-32.0 [facility] Mean corpuscular hemoglobin concentration (MCHC) determinationOrdered By: Damirsharlene Ledesmao on 12-03-2024 MCHC (RBC) [Mass/Vol] 32.6 g/dL 32-36 [facility] Mean platelet volume determi nationOrdered By: Damrisharlene Ledesmao on 12-03-2024 Platelet mean volume (Bld) [Entitic vol] 11.9 fL 6.2-12.0 [facility] Monocyte percentageOrdered B y: [facility] Monocytes/100 WBC (Bld) 4.8 % 0-10 [facility] Neutrophil percentageOrdered By: Damirsharlene Ledesmao on 12-03-2024 Neutrophils/100 WBC (Bld) 89.7 % High 47-70 [facility] No Panel InformationOrdered By: Roxanna Perez on 12-03-2024 P Waldo -3 degrees [facility] Work Phone: AL Interval 151 ms [facility] Work Phone: QRS Waldo 38 degrees [facility] Work Phone: QRSD Interval 81 ms [facility] Work Phone: QT Interval 370 ms [facility] Work Phone: QTC Interval 453 ms [facility] Work Phone: T Wave Waldo 5 degrees [facility] Work Phone: [facility] Work Phone: No Panel Informationon 12-03 Sinus rhythm Borderline T abnormalities, anterior leads Electronically Signed On 12-03-2024 22:55:54 EST by David Maciasey A, DO - 12/03/2024 IMPRESSION: Sinus rhythm Borderline T abnormalities, anterior leads Electronically Signed On 12-03-2024 22:55:54 EST by Roxanna PerezManjeet [facility] Interpretation and review of laboratory results Normal [facility] Toxicity seen at concentrations >20.0 ug/mL [facility] Interpretation and review of laboratory results Normal [facility] Nucleated red blood cell per centageOrdered By: Damir Mckee on 12-03-2024 Nucleated RBC/100 WBC (Bld) [Ratio] 0 % 0-5 [facility] PHENYTOIN TOTALon 12-03-2024 PHENYTOIN, TOTAL 14.1 ug/mL Normal 10.0-20.0 [facility] Comment on above: Result Comment: RD Chu COMMENTS: Toxicity seen at concentrations >20.0 ug/mL Performed By: #### L AB31 ####[employer]: JACKI MANCILLA ([id number])[address] Phenytoin (Dilantin) Levelon 12-03-2024 PHENYTOIN 2.6 mL Low 10.0-20.0 [facility] Comment on above: Performed By: #### L 500.4050, L100.0500 #### [facility] [address] [place], [place] [address], [place], [address] Phenytoin [Mass/Vol]Ordered By: Damir Mckee on 12-03-2024 Phenytoin (Dilantin) Level 2.6 mL Low 10.0-20.0 [facility] Platelet countOrdered By: Iker Mckee on 12-03-2024 Platelets (Bld) [#/Vol] 199 10*3/uL 150-450 [facility] Potassium measurementOrdered By: Damir Mckee on 12-03-2024 Potassium [Moles/Vol] 3.3 mmol/L Low 3.5-5.1 [facility] RBC Auto (Bld) [#/Vol]Ordere d By: Damir Mckee on 12-03-2024 RBC (Bld) [#/Vol] 4.09 10*6/uL Low 4.2-5.4 [facility] [place] PATHOGENS PANEL BY PCRon 12-03-2024 RESPIRATORY [...] Detected ORDER COMMENTS: Methodology: Multiplex PCR Normal [facility] Comment on above: Performed By: #### L [id number], [id number] ####[employer]: JACKI MANCILLA ([id number])[address] SARS-COV-2, FLU A/B, AND RSV COMBOon 12-03-2024 SARS-CoV-2 (COVID-19) RNA RUTH+probe Ql (Unsp spec) SARS-COV-2 Reference Not Detected Not Detected RESPIRATORY SYNCYTIAL VIRUS Reference Not Detected Not Detected INFLUENZA A (CEPHEID) Reference Not Detected Not Detected INFLUENZA B (CEPHEID) Reference Not Detected Not Detected ORDER COMMENTS: Methodology: real-time, RT-PCR [facility] Comment on above: Performed By: #### L AB15 #### [employer]: JACKI MANCILLA ([id number]) [facility]) [address] [place] [address] SARS-CoV-2, Flu A/B, and RSV Comboon 12-03-2024 Interpretation and review of laboratory results Normal [facility] Methodology: real-ti me, RT-PCR [facility] Serum anion gap measurementO rdered By: Damir Mckee on 12-03-2024 Anion gap [Moles/Vol] 8 mmol/L 5-15 [facility] Serum or plasma calcium jacob urement (mass/volume)Ordered By: Damirsharlene Mckee on 12-03-2024 Calcium [Mass/Vol] 7.4 mg/dL Low 8.5-10.1 [facility] Serum or plasma creatinine m easurement (mass/volume)Ordered By: Damirsharlene Mckee on 12-03-2024 Creatinine [Mass/Vol] 0.64 mg/dL 0.55-1.02 [facility] Comment on above: The validity of the calculated GFR & GFRAA in patients over 70 years has not been determined. Clinical correlation is essential. Serum or plasma phenytoin le kate (mass/volume)Ordered By: Damir Mckee on 12-03-2024 Phenytoin [Mass/Vol] 2.6 mL Low 10.0-20.0 [facility] Serum or plasma urea nitroge n measurement (mass/volume)Ordered By: [facility] on 12-03-2024 Urea nitrogen [Mass/Vol] 19 mg/dL High 7-18 [facility] Sodium levelOrdered By: [facility] on 12-03-2024 Sodium [Moles/Vol] 143 mmol/L 136-145 [facility] URINE CULTUREon 12-03-2024 Bacteria identified Cx Nom (U) URINE CULTURE Reference Normal urogenital devyn present ESCHERICHIA COLI >100,000 CFU/mL Escherichia coli (A) AEROCOCCUS URINAE >100,000 CFU/mL Aerococcus urinae (A) Susceptibility testing not routinely performed except on isolates from blood culture. Aerococcus species are generally susceptible to beta-lactams. Resistance to sulfonamides is common in Aerococcus urinae. Providers should call the [facility] ([phone]) within 3 days if susceptibility testing is [...] Non-susceptible NO = No Interpretation ] Normal [facility] Comment on above: Performed By: #### L AB239, [id number] #### [employer]: JACKI MANCILLA ([id number]) [facility] ([facility]) [address] [place] [address] Urinalysis complete panel (U )on 12-03-2024 Bacteria LM.HPF (Urine sed) [#/Area] Loaded Abnormal Negative /HPF [facility] Bilirubin Ql (U) Negative Negative mg/dL [facility] Clarity (U) Extra Turbid Abnormal Clear [facility] Color (U) Yellow Lt. Yellow [facility] Epithelial cells.squamous LM.HPF (Urine sed) [#/Area] 11-25 Abnormal [facility] Glucose Ql (U) Normal Normal (<70) mg/dL [facility] Hemoglobin Ql (U) 0.06 mg/dL Abnormal Negative [facility] Hyaline casts Auto (Urine sed) [#/Area] Negative Negative /LPF [facility] Interpretation and review of laboratory results Abnormal [facility] Ketones (U) [Mass/Vol] Trace Abnormal Negat clay mg/dL [facility] Leukocyte clumps LM.HPF (Urine sed) [#/Area] Many Abnormal Negative /HPF [facility] Leukocyte esterase Test strip Ql (U) 500 Abnormal Negative James/uL [facility] Mucus LM.HPF (Urine sed) [#/Area] Few Negative /LPF [facility] Nitrite Ql (U) Negative Negative [facility] Non-Squamous Epithalial Cells, Urine 3-5 Abnormal Negative /HPF [facility] pH (U) 6.0 [pH] 5.0 - 8.0 pH [facility] Protein (U) [Mass/Vol] 100 mg/dL Abnormal Negative [facility] RBC LM.HPF (Urine sed) [#/Area] 11-25 Abnormal [facility] Specific gravity (U) [Rel density] High 1.005 - 1.030 [facility] Urobilinogen (U) [Mass/Vol] Normal Normal (0-1) mg/dL [facility] WBC LM.HPF (Urine sed) [#/Area] /[HPF] Abnormal [facility] Valproate levelOrdered By: Daniel Mckee on 12-03-2024 Valproic Acid (Depakene) Level 47 ug/mL Low 50-100 [facility] Valproic Acid (Depakene) Lev maribell 12-03-2024 VALPROIC ACID 47 ug/mL Low 50-100 [facility] Comment on above: Performed By: #### L 500.4050, L100.0500 #### [facility] [address] [place], [address] Vital signsOrdered By: Marian Perez on 12-03-2024 Heart rate 90 /min bpm [facility] Work Phone: White blood cell (WBC) count Ordered By: Damir Mckee on 12-03-2024 WBC (Bld) [#/Vol] 13.8 10*3/uL High 4.4-11.0 [facility] XR Chest Single viewon 12-03 No radiographic [...] the spine are present at multiple levels. [facility] Micah Adler MD - 12/03/2024 Patient [...] Electronically Signed Date/Time: 12/03/2024 8:07 PM EST [facility] Radiology Study observation (narrative) [facility] XR Chest Single viewOrdered By: Micah Adler on 12-03-2024 [facility] Work Phone: Kuldip 12-01-2024 [facility] Telephone (NEEPBA) -------- KATHERYN CHINO ([id number]) 1945 F Date Time Provider Department 12/01/24 JAYANT JIMENEZ During your visit today, we recorded the following information about you: Nabeel Smith 12/01/2024 11:10 AM Signed Provider referred patient to rheumatology. I placed into protal under ref# [id number] Allergies As of Date: 12/01/2024 (No Known [...] mg/spray (0.1 mL) nasal spray Use 1 [place] in the nose as needed for seizures [...] Encounter Status:Closed by NABEEL SMITH on 12/01/24 [facility] CNPN Telephone (NE50MN) -------- KATHERYN CHINO ([id number]) 1945 F Date Time Provider Department 12/01/24 [...] and DEXA report faxed via RightFax to: [facility] PH: [phone] FAX : [phone] Confirmation received. 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 Reason for Visit: Therapist Physical - Other [[id number]] Prescriptions as of 12/02/2024 - lacosamide (VIMPAT) [...] mg/spray (0.1 mL) nasal spray Use 1 [place] in the nose as needed for seizures [...] Status:Closed by SILVIA ROGERS on 12/02/24 Normal [facility] BD DXA - AXIAL SKELETONon BD [...] years, Gender: Female SCANNER INFORMATION: DXA Model: [employer] - Vital Connect [id number] Date Scanned: 11/26/2024 11:08 AM CLINICAL HISTORY: 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 VERTEBRAL FRACTURE ASSESSMENT Not performed. TRABECULAR [...] www.nof.org International Society of Clinical Densitometry www.iscd.org Unit Director: SUNSHINE Transcribe Date/Time: Nov 29 2024 2:05P Dictated by : ALEXA CRUZ MD This examination was interpreted and the report reviewed and electronically signed by: ALEXA CRUZ MD on Feb 15 2025 2:06PM EST [id number] -4.5 Normal [facility] [...] years, Gender: Female SCANNER INFORMATION: DXA Model: [employer] - [id number] Date Scanned: 11/26/2024 11:08 AM CLINICAL HISTORY: DIAGNOSTIC 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 osteoporosis snf (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 VERTEBRAL FRACTURE ASSESSMENT Not performed. TRABECULAR [...] www.nof.org International Society of Clinical Densitometry www.iscd.org Unit Director: PSCNo Transcribe Date/Time: Nov 29 2024 2:05P Dictated by : ALEXA CRUZ MD This examination was interpreted and the report reviewed and electronically signed by: ALEXA CRUZ MD on Nov 29 2024 2:06PM EST [id number] -4.5 Normal [facility] Phenytoin (Dilantin) Levelon 11-14-2024 PHENYTOIN 8.8 mL Low 10.0-20.0 [facility] Comment on above: Order Comment: [id number] Performed By: #### L 501.8100, L501.7700, L500.4050, L100.0100 #### [facility] [address] [place], [address] Phenytoin [Mass/Vol]Ordered By: Todd Velasquez on 11-14-2024 Phenytoin (Dilantin) Level 8.8 mL Low 10.0-20.0 [facility] Serum or plasma phenytoin le kate (mass/volume)Ordered By: Todd Velasquez on 11-14-2024 Phenytoin [Mass/Vol] 8.8 mL Low 10.0-20.0 [facility] CNPNon 11-11-2024 [facility] Telephone (NEUSES) -------- KATHERYN CHINO ([id number]) 1945 F Date Time Provider Department 11/11/24 JAYANT JIMENEZ During your visit today, we recorded the following information about you: Franchesca Arana 11/11/2024 10:48 AM Signed Received Seizure monitoring report from [facility]. Uploaded to [employer]. Silvia Rogers RN 11/11/2024 11:04 AM Signed Noted. Spoke with nurse Gisella, recommendations provided per MARIO. Letter, copies of LCM, Nayzilam spray faxed to facility. See 11/10/24 phone encounter. Silvia Rogers RN Allergies As of Date: 11/11/2024 (No Known Allergies) Date Reviewed: 09/24/2024 Reviewed by: Shalini Montana LPN - Fully Assessed Reason for Visit: Received Outside Medical Records [0473] Cmt: Seizure monitoring report Prescriptions as of [...] mg/spray (0.1 mL) nasal spray Use 1 [place] in the nose as needed for seizures [...] Encounter Status:Closed by SILVIA ROGERS on 11/11/24 [facility] Kuldip [facility]20[facility] -------- KATHERYN CHINO ([id number]) 1945 F Date Time Provider Department 11/10/24 JAYANT JIMENEZ NE50MN During your visit today, we recorded the following information about you: Elena Mendezcy 11/10/2024 1:45 PM Signed Seizure activity: Name of Caller : [facility] Relationship to patient: Caregiver Contact phone number: [phone] Date of seizure: 11/07/24 Duration: 20 minutes [...] rescue medication, nurse is requesting. Forwarded to [facility] for review. MEGA Christianson Kelly, APRN.DWAYNE 11/10/2024 [...] spray 2 Each 0 Sig: Use 1 [place] in the nose as needed for seizures lasting longer than 3 minutes for up to 90 days. May repeat dose in alternate nostril after 10 minutes based on response and tolerability. Authorizing Provider: ARTIS HAMILTON lacosamide (VIMPAT) 50 mg tab 42 tablet 0 Sig: Take 1 tablet by mouth daily at bedtime for 7 days, THE (more content not included)... Normal [facility] Albumin to globulin ratioOrd ered By: [facility] on 11-08-2024 Albumin/Globulin [Mass ratio] 0.8 {ratio} Low 0.9-2.4 [facility] Bilirubin, totalOrdered By: [facility] on 11-08-2024 Bilirubin [Mass/Vol] 0.40 mg/dL 0.20-1.00 [facility] Comment on above: For patients on eltr ombopag therapy, use of Dimension [place] TBIL is not recommended. Blood urea nitrogen (BUN)/cr eatinine ratioOrdered By: [facility] on 11-08-2024 Urea nitrogen/Creatinine [Mass ratio] 24.0 mg/mg High 10-20 [facility] CBC-Complete Blood Cnt No Di ffon 11-08-2024 Erythrocyte distribution width (RBC) [Ratio] 13.2 % Normal 11.6-14.6 [facility] Comment on above: Performed By: #### L 501.8100, L501.7700, L500.4050, L100.0100 #### [facility] [address] [place], [address] Hematocrit (Bld) [Volume fraction] 37.8 % Normal 37-47 [facility] Comment on above: Performed By: #### L 501.8100, L501.7700, L500.4050, L100.0100 #### [facility] [address] [place], [address] Hemoglobin (Bld) [Mass/Vol] 11.9 g/dL Low 12.0-15.0 [facility] Comment on above: Performed By: #### L 501.8100, L501.7700, L500.4050, L100.0100 #### [facility] [address] [place], [address] MCH (RBC) [Entitic mass] 28.2 pg Normal 27.0-32.0 [facility] Comment on above: Performed By: #### L 501.8100, L501.7700, L500.4050, L100.0100 #### [facility] [address] [place], [address] MCHC (RBC) [Mass/Vol] 31.5 g/dL Low 32-36 [facility] Comment on above: Performed By: #### L 501.8100, L501.7700, L500.4050, L100.0100 #### [facility] [address] [place], [address] MCV (RBC) [Entitic vol] 89.6 fL Normal 81-99 [facility] Comment on above: Performed By: #### L 501.8100, L501.7700, L500.4050, L100.0100 #### [facility] [address] [place], [address] Platelet mean volume (Bld) [Entitic vol] 12.1 fL High 6.2-12.0 [facility] Comment on above: Performed By: #### L 501.8100, L501.7700, L500.4050, L100.0100 #### [facility] [address] [place], [address] Platelets (Bld) [#/Vol] 227 10*3/uL Normal 150-450 [facility] Comment on above: Performed By: #### L 501.8100, L501.7700, L500.4050, L100.0100 #### [facility] [address] [place], [address] RBC (Bld) [#/Vol] 4.22 10*6/uL Normal 4.2-5.4 [facility] Comment on above: Performed By: #### L 501.8100, L501.7700, L500.4050, L100.0100 #### [facility] [address] [place], [address] RDW SD 43.1 fl Normal 35.1-43.9 [facility] Comment on above: Performed By: #### L 501.8100, L501.7700, L500.4050, L100.0100 #### [facility] [address] [place], [address] WBC (Bld) [#/Vol] 6.4 10*3/uL Normal 4.4-11.0 [facility] Comment on above: Performed By: #### L 501.8100, L501.7700, L500.4050, L100.0100 #### [facility] [address] [place], [address] Carbon dioxide measurementOr dered By: [facility] on 11-08-2024 CO2 [Moles/Vol] 28.0 mmol/L 21.0-32.0 [facility] Chloride measurementOrdered By: [facility] on 11-08-2024 Chloride [Moles/Vol] 109 mmol/L High 98-107 [facility] Comprehensive Metabolic Prof ilon 11-08-2024 Albumin [Mass/Vol] 3.7 g/dL Normal 3.2-5.0 [facility] Comment on above: Performed By: #### L 501.8100, L501.7700, L500.4050, L100.0100 #### [facility] [address] [place], [address] Albumin/Globulin [Mass ratio] 0.8 {ratio} Low 0.9-2.4 [facility] Comment on above: Performed By: #### L 501.8100, L501.7700, L500.4050, L100.0100 #### [facility] [address] [place], [address] ALK P 141 U/L High 45-117 [facility] Comment on above: Performed By: #### L 501.8100, L501.7700, L500.4050, L100.0100 #### [facility] [address] [place], [address] ALT [Catalytic activity/Vol] 17 U/L Normal 13-56 [facility] Comment on above: Performed By: #### L 501.8100, L501.7700, L500.4050, L100.0100 #### [facility] [address] [place], [address] AST [Catalytic activity/Vol] 26 U/L Normal 15-37 [facility] Comment on above: Performed By: #### L 501.8100, L501.7700, L500.4050, L100.0100 #### [facility] [address] [place], [address] Bilirubin [Mass/Vol] 0.40 mg/dL Normal 0.20-1.00 [facility] Comment on above: Result Comment: For patients on eltrombopag therapy, use of Dimension [place] TBIL is not recommended. Performed By: #### L 501.8100, L501.7700, L500.4050, L100.0100 #### [facility] [address] [place], [address] BUN/CRE 24.0 RATIO High 10-20 [facility] Comment on above: Performed By: #### L 501.8100, L501.7700, L500.4050, L100.0100 #### [facility] [address] [place], [address] CA,Total 9.7 mg/dL Normal 8.5-10.1 [facility] Comment on above: Performed By: #### L 501.8100, L501.7700, L500.4050, L100.0100 #### [facility] [address] [place], [address] Chloride [Moles/Vol] 109 mmol/L High 98-107 [facility] Comment on above: Performed By: #### L 501.8100, L501.7700, L500.4050, L100.0100 #### [facility] [address] [place], [address] CO2 [Moles/Vol] 28.0 mmol/L Normal 21.0-32.0 [facility] Comment on above: Performed By: #### L 501.8100, L501.7700, L500.4050, L100.0100 #### [facility] [address] [place], [address] Creatinine [Mass/Vol] 0.83 mg/dL Normal 0.55-1.02 [facility] Comment on above: Result Comment: The validity of the calculated GFR GFRAA in patients over 70 years has not been determined. Clinical correlation is essential. Performed By: #### L 501.8100, L501.7700, L500.4050, L100.0100 #### [facility] [address] [place], [address] EST GFR - AA 85 mL/min Normal >60 [facility] Comment on above: Result Comment: Afri can Barbadian GFR Calc Performed By: #### L 501.8100, L501.7700, L500.4050, L100.0100 #### [facility] [address] [place], [address] GAP 3 Low 5-15 [facility] Comment on above: Performed By: #### L 501.8100, L501.7700, L500.4050, L100.0100 #### [facility] [address] [place], [address] GFR/1.73 sq M.predicted among non-blacks MDRD (S/P/Bld) [Vol rate/Area] 71 mL/min/{1.73_m2} Normal >60 [facility] Comment on above: Result Comment: Non- GFR Calc Performed By: #### L 501.8100, L501.7700, L500.4050, L100.0100 #### [facility] [address] [place], [address] Globulin (S) [Mass/Vol] 4.6 g/dL High 2.2-4.2 [facility] Comment on above: Performed By: #### L 501.8100, L501.7700, L500.4050, L100.0100 #### [facility] [address] [place], [address] Glucose [Mass/Vol] 79 mg/dL Normal 74-106 [facility] Comment on above: Performed By: #### L 501.8100, L501.7700, L500.4050, L100.0100 #### [facility] [address] [place], [address] Potassium [Moles/Vol] 4.9 mmol/L Normal 3.5-5.1 [facility] Comment on above: Performed By: #### L 501.8100, L501.7700, L500.4050, L100.0100 #### [facility] [address] [place], [address] Sodium [Moles/Vol] 140 mmol/L Normal 136-145 [facility] Comment on above: Performed By: #### L 501.8100, L501.7700, L500.4050, L100.0100 #### [facility] [address] [place], [address] T PROT 8.3 g/dL High 6.4-8.2 [facility] Comment on above: Performed By: #### L 501.8100, L501.7700, L500.4050, L100.0100 #### [facility] [address] [place], [address] Urea nitrogen [Mass/Vol] 20 mg/dL High 7-18 [facility] Comment on above: Performed By: #### L 501.8100, L501.7700, L500.4050, L100.0100 #### [facility] [address] [place], [address] Erythrocyte distribution wid th (RBC) [Ratio]Ordered By: [facility] on 11-08-2024 Erythrocyte distribution width (RBC) [Entitic vol] 43.1 fL 35.1-43.9 [facility] Erythrocyte distribution wid th ratioOrdered By: [facility] on 11-08-2024 Erythrocyte distribution width (RBC) [Ratio] 13.2 % 11.6-14.6 [facility] Erythrocyte distribution wid th standard deviationOrdered By: [facility] on 11-08-2024 Erythrocyte distribution width (RBC) [Ratio] 43.1 fl 35.1-43.9 [facility] Estimated glomerular filtrat ion rate (GFR) AmericanOrdered By: [facility] on 11-08-2024 Estimated GFR (MDRD) Amer 85 mL/min >60 [facility] Comment on above: GFR Calc Glomerular filtration rate ( GFR) estimationOrdered By: [facility] on 11-08-2024 Estimated GFR (MDRD) Non-Af Amer 71 mL/min >60 [facility] Comment on above: Non- GFR Calc GFR/1.73 sq M.predicted among non-blacks MDRD (S/P/Bld) [Vol rate/Area] 71 mL/min/{1.73_m2} >60 [facility] Comment on above: Non- GFR Calc Glucose measurementOrdered B y: [facility] on 11-08-2024 Glucose [Mass/Vol] 79 mg/dL 74-106 [facility] Hematocrit Auto (Bld) [Volum e fraction]Ordered By: [facility] on 11-08-2024 Hematocrit (Bld) [Volume fraction] 37.8 % 37-47 [facility] Hemoglobin measurementOrdere d By: [facility] on 11-08-2024 Hemoglobin (Bld) [Mass/Vol] 11.9 g/dL Low 12.0-15.0 [facility] - Chemistry and C hemistry - challengeOrdered By: [facility] on 11-08-2024 AST [Catalytic activity/Vol] 26 U/L 15-37 [facility] MCV (mean corpuscular volume ) determinationOrdered By: [facility] on 11-08-2024 MCV (RBC) [Entitic vol] 89.6 fL 81-99 [facility] Mean corpuscular hemoglobin (MCH) determinationOrdered By: [facility] on 11-08-2024 MCH (RBC) [Entitic mass] 28.2 pg 27.0-32.0 [facility] Mean corpuscular hemoglobin concentration (MCHC) determinationOrdered By: [facility] on 11-08-2024 MCHC (RBC) [Mass/Vol] 31.5 g/dL Low 32-36 [facility] Mean platelet volume determi nationOrdered By: [facility] on 11-08-2024 Platelet mean volume (Bld) [Entitic vol] 12.1 fL High 6.2-12.0 [facility] Phenytoin (Dilantin) Levelon 11-08-2024 PHENYTOIN 7.9 mL Low 10.0-20.0 [facility] Comment on above: Order Comment: [id number] Performed By: #### L 501.8100, L501.7700, L500.4050, L100.0100 #### [facility] [address] [place], [place] [address] [place], [place], [address] Phenytoin [Mass/Vol]Ordered By: [facility] on 11-08-2024 Phenytoin (Dilantin) Level 7.9 mL Low 10.0-20.0 [facility] Platelet countOrdered By: [facility] on 11-08-2024 Platelets (Bld) [#/Vol] 227 10*3/uL 150-450 [facility] Potassium measurementOrdered By: [facility] on 11-08-2024 Potassium [Moles/Vol] 4.9 mmol/L 3.5-5.1 [facility] RBC Auto (Bld) [#/Vol]Ordere d By: [facility] on 11-08-2024 RBC (Bld) [#/Vol] 4.22 10*6/uL 4.2-5.4 [facility] Serum anion gap measurementO rdered By: [facility] on 11-08-2024 Anion gap [Moles/Vol] 3 mmol/L Low 5-15 [facility] Serum globulin measurementOr dered By: [facility] on 11-08-2024 Globulin (S) [Mass/Vol] 4.6 g/dL High 2.2-4.2 [facility] Serum or plasma alanine ignacio otransferase (ALT) measurementOrdered By: [facility] on 11-08-2024 ALT [Catalytic activity/Vol] 17 U/L 13-56 [facility] Serum or plasma albumin jacob urement (mass/volume)Ordered By: [facility] on 11-08-2024 Albumin [Mass/Vol] 3.7 g/dL 3.2-5.0 [facility] Serum or plasma alkaline phillip sphatase measurementOrdered By: [facility] on 11-08-2024 ALP [Catalytic activity/Vol] 141 U/L High 45-117 [facility] Serum or plasma calcium jacob urement (mass/volume)Ordered By: [facility] on 11-08-2024 Calcium [Mass/Vol] 9.7 mg/dL 8.5-10.1 [facility] Serum or plasma creatinine m easurement (mass/volume)Ordered By: [facility] on 11-08-2024 Creatinine [Mass/Vol] 0.83 mg/dL 0.55-1.02 [facility] Comment on above: The validity of the calculated GFR & GFRAA in patients over 70 years has not been determined. Clinical correlation is essential. Serum or plasma phenytoin le kate (mass/volume)Ordered By: [facility] on 11-08-2024 Phenytoin [Mass/Vol] 7.9 mL Low 10.0-20.0 [facility] Serum or plasma urea nitroge n measurement (mass/volume)Ordered By: [facility] on 11-08-2024 Urea nitrogen [Mass/Vol] 20 mg/dL High 7-18 [facility] Sodium levelOrdered By: [facility] on 11-08-2024 Sodium [Moles/Vol] 140 mmol/L 136-145 [facility] Total proteinOrdered By: [facility] on 11-08-2024 Protein [Mass/Vol] 8.3 g/dL High 6.4-8.2 [facility] Valproate levelOrdered By: [facility] on 11-08-2024 Valproic Acid (Depakene) Level 68 ug/mL 50-100 [facility] Valproic Acid (Depakene) Lev maribell 11-08-2024 VALPROIC ACID 68 ug/mL Normal 50-100 [facility] Comment on above: Order Comment: 211-2 0730 Performed By: #### L 501.8100, L501.7700, L500.4050, L100.0100 #### [facility] [address] [place], [address] White blood cell (WBC) count Ordered By: [facility] on 11-08-2024 WBC (Bld) [#/Vol] 6.4 10*3/uL 4.4-11.0 [facility] CNPNon 11-07-2024 CNPN Telephone (NE50MN) -------- KATHERYN CHINO ([id number]) 1945 F Date Time Provider Department 11/07/24 JAYANT JIMENEZ NE50MN During your visit today, we recorded the following information about you: Yocasta Rivers 11/07/2024 3:48 PM Signed General call : Full name of person calling: [facility] Relationship to patient: Phone # : [...] Status:Closed by SILVIA ROGERS on 11/10/24 Normal [facility] Absolute neutrophil countOrd ered By: Todd Velasquez on 09-29-2024 Neutrophils (Bld) [#/Vol] 3.3 10*3/uL 2.0-7.7 [facility] Albumin to globulin ratioOrd ered By: Todd Velasquez on 09-29-2024 Albumin/Globulin [Mass ratio] 0.7 {ratio} Low 0.9-2.4 [facility] Basophil percentageOrdered B y: Todd Velasquez on 09-29-2024 Basophils/100 WBC (Bld) 0.7 % 0-1 [facility] Bilirubin, totalOrdered By: Todd Velasquez on 09-29-2024 Bilirubin [Mass/Vol] 0.30 mg/dL 0.20-1.00 [facility] Comment on above: For patients on eltr ombopag therapy, use of Dimension [place] TBIL is not recommended. Blood urea nitrogen (BUN)/cr eatinine ratioOrdered By: Todd Velasquez on 09-29-2024 Urea nitrogen/Creatinine [Mass ratio] 23.9 mg/mg High - [facility] CBC W/Diff, Automatedon 09-14 Absolute Lymph 2.51 X10 3/uL Normal 0.83-4.51 [facility] Comment on above: Order Comment: 211-2 Performed By: #### L 501.8100, L501.7700, L500.4050, L100.0100 #### [facility] [address] [place], [address] Absolute Neut 3.3 X10 3/uL Normal 2.0-7.7 [facility] Comment on above: Order Comment: 211-2 Performed By: #### L 501.8100, L501.7700, L500.4050, L100.0100 #### [facility] [address] [place], [address] Basophils/100 WBC (Bld) 0.7 % Normal 0-1 [facility] Comment on above: Order Comment: 211-2 Performed By: #### L 501.8100, L501.7700, L500.4050, L100.0100 #### [facility] [address] [place], [address] Eosinophils/100 WBC (Bld) 1.8 % Normal 0-5 [facility] Comment on above: Order Comment: 211-2 Performed By: #### L 501.8100, L501.7700, L500.4050, L100.0100 #### [facility] [address] [place], [address] Erythrocyte distribution width (RBC) [Ratio] 13.7 % Normal 11.6-14.6 [facility] Comment on above: Order Comment: 211-2 Performed By: #### L 501.8100, L501.7700, L500.4050, L100.0100 #### [facility] [address] [place], [address] Hematocrit (Bld) [Volume fraction] 34.3 % Low 37-47 [facility] Comment on above: Order Comment: 211-2 Performed By: #### L 501.8100, L501.7700, L500.4050, L100.0100 #### [facility] [address] [place], [address] Hemoglobin (Bld) [Mass/Vol] 10.7 g/dL Low 12.0-15.0 [facility] Comment on above: Order Comment: 211-2 Performed By: #### L 501.8100, L501.7700, L500.4050, L100.0100 #### [facility] [address] [place], [address] IG% 0.300 Normal 0.0-0.9 [facility] Comment on above: Order Comment: 211-2 Result Comment: IG% - Immature Granulocytes (promyelocytes, myelocytes and metamyelocytes) > 1% indicates that a LEFT SHIFT is Present. Performed By: #### L 501.8100, L501.7700, L500.4050, L100.0100 #### [facility] [address] [place], [address] Lymphocytes/100 WBC (Bld) 37.1 % Normal 19-41 [facility] Comment on above: Order Comment: 211-2 Performed By: #### L 501.8100, L501.7700, L500.4050, L100.0100 #### [facility] [address] [place], [address] MCH (RBC) [Entitic mass] 29.2 pg Normal 27.0-32.0 [facility] Comment on above: Order Comment: 211-2 Performed By: #### L 501.8100, L501.7700, L500.4050, L100.0100 #### [facility] [address] [place], [address] MCHC (RBC) [Mass/Vol] 31.2 g/dL Low 32-36 [facility] Comment on above: Order Comment: 211-2 Performed By: #### L 501.8100, L501.7700, L500.4050, L100.0100 #### [facility] [address] [place], [address] MCV (RBC) [Entitic vol] 93.7 fL Normal 81-99 [facility] Comment on above: Order Comment: 211-2 Performed By: #### L 501.8100, L501.7700, L500.4050, L100.0100 #### [facility] [address] [place], [address] Monocytes/100 WBC (Bld) 12.1 % High 0-10 [facility] Comment on above: Order Comment: 211-2 Performed By: #### L 501.8100, L501.7700, L500.4050, L100.0100 #### [facility] [address] [place], [address] Neutrophils/100 WBC (Bld) 48.0 % Normal 47-70 [facility] Comment on above: Order Comment: 211-2 Performed By: #### L 501.8100, L501.7700, L500.4050, L100.0100 #### [facility] [address] [place], [address] Nucleated RBC (Bld) [#/Vol] 0 10*3/uL Normal 0-5 [facility] Comment on above: Order Comment: 211-2 Performed By: #### L 501.8100, L501.7700, L500.4050, L100.0100 #### [facility] [address] [place], [address] Platelet mean volume (Bld) [Entitic vol] 11.8 fL Normal 6.2-12.0 [facility] Comment on above: Order Comment: 211-2 Performed By: #### L 501.8100, L501.7700, L500.4050, L100.0100 #### [facility] [address] [place], [address] Platelets (Bld) [#/Vol] 195 10*3/uL Normal 150-450 [facility] Comment on above: Order Comment: 211-2 Performed By: #### L 501.8100, L501.7700, L500.4050, L100.0100 #### [facility] [address] [place], [address] RBC (Bld) [#/Vol] 3.66 10*6/uL Low 4.2-5.4 [facility] Comment on above: Order Comment: 211-2 Performed By: #### L 501.8100, L501.7700, L500.4050, L100.0100 #### [facility] [address] [place], [address] RDW SD 46.8 fl High 35.1-43.9 [facility] Comment on above: Order Comment: 211-2 Performed By: #### L 501.8100, L501.7700, L500.4050, L100.0100 #### [facility] [address] [place], [address] WBC (Bld) [#/Vol] 6.8 10*3/uL Normal 4.4-11.0 [facility] Comment on above: Order Comment: 211-2 Performed By: #### L 501.8100, L501.7700, L500.4050, L100.0100 #### [facility] [address] [place], [address] Carbon dioxide measurementOr dered By: Todd Velasquez on 09-29-2024 CO2 [Moles/Vol] 24.0 mmol/L 21.0-32.0 [facility] Chloride measurementOrdered By: Todd Velasquez on 09-29-2024 Chloride [Moles/Vol] 110 mmol/L High 98-107 [facility] Comprehensive Metabolic Prof ilon 09-29-2024 Albumin [Mass/Vol] 2.9 g/dL Low 3.2-5.0 [facility] Comment on above: Order Comment: 211-2 Performed By: #### L 501.8100, L501.7700, L500.4050, L100.0100 #### [facility] [address] [place], [address] Albumin/Globulin [Mass ratio] 0.7 {ratio} Low 0.9-2.4 [facility] Comment on above: Order Comment: 211-2 Performed By: #### L 501.8100, L501.7700, L500.4050, L100.0100 #### [facility] [address] [place], [address] ALK P 114 U/L Normal 45-117 [facility] Comment on above: Order Comment: 211-2 Performed By: #### L 501.8100, L501.7700, L500.4050, L100.0100 #### [facility] [address] [place], [address] ALT [Catalytic activity/Vol] 18 U/L Normal 13-56 [facility] Comment on above: Order Comment: 211-2 Performed By: #### L 501.8100, L501.7700, L500.4050, L100.0100 #### [facility] [address] [place], [address] AST [Catalytic activity/Vol] 24 U/L Normal 15-37 [facility] Comment on above: Order Comment: 211-2 Performed By: #### L 501.8100, L501.7700, L500.4050, L100.0100 #### [facility] [address] [place], [address] Bilirubin [Mass/Vol] 0.30 mg/dL Normal 0.20-1.00 [facility] Comment on above: Order Comment: 211-2 Result Comment: For patients on eltrombopag therapy, use of [employer] [place] TBIL is not recommended. Performed By: #### L 501.8100, L501.7700, L500.4050, L100.0100 #### [facility] [address] [place], [address] BUN/CRE 23.9 RATIO High 10-20 [facility] Comment on above: Order Comment: 211-2 Performed By: #### L 501.8100, L501.7700, L500.4050, L100.0100 #### [facility] [address] [place], [address] CA,Total 9.2 mg/dL Normal 8.5-10.1 [facility] Comment on above: Order Comment: 211-2 Performed By: #### L 501.8100, L501.7700, L500.4050, L100.0100 #### [facility] [address] [place], [address] Chloride [Moles/Vol] 110 mmol/L High 98-107 [facility] Comment on above: Order Comment: 211-2 Performed By: #### L 501.8100, L501.7700, L500.4050, L100.0100 #### [facility] [address] [place], [address] CO2 [Moles/Vol] 24.0 mmol/L Normal 21.0-32.0 [facility] Comment on above: Order Comment: 211-2 Performed By: #### L 501.8100, L501.7700, L500.4050, L100.0100 #### [facility] [address] [place], [address] Creatinine [Mass/Vol] 0.80 mg/dL Normal 0.55-1.02 [facility] Comment on above: Order Comment: Result Comment: The validity of the calculated GFR GFRAA in patients over 70 years has not been determined. Clinical correlation is essential. Performed By: #### L 501.8100, L501.7700, L500.4050, L100.0100 #### [facility] [address] [place], [address] EST GFR - AA 90 mL/min Normal >60 [facility] Comment on above: Order Comment: Result Comment: Afri can [place] GFR Calc Performed By: #### L 501.8100, L501.7700, L500.4050, L100.0100 #### [facility] [address] [place], [address] GAP 6 Normal 5-15 [facility] Comment on above: Order Comment: Performed By: #### L 501.8100, L501.7700, L500.4050, L100.0100 #### [facility] [address] [place], [address] GFR/1.73 sq M.predicted among non-blacks MDRD (S/P/Bld) [Vol rate/Area] 74 mL/min/{1.73_m2} Normal >60 [facility] Comment on above: Order Comment: Result Comment: Non- GFR Calc Performed By: #### L 501.8100, L501.7700, L500.4050, L100.0100 #### [facility] [address] [place], [address] Globulin (S) [Mass/Vol] 4.0 g/dL Normal 2.2-4.2 [facility] Comment on above: Order Comment: 211-2 Performed By: #### L 501.8100, L501.7700, L500.4050, L100.0100 #### [facility] [address] [place], [address] Glucose [Mass/Vol] 91 mg/dL Normal 74-106 [facility] Comment on above: Order Comment: 211-2 Performed By: #### L 501.8100, L501.7700, L500.4050, L100.0100 #### [facility] [address] [place], [address] Potassium [Moles/Vol] 4.3 mmol/L Normal 3.5-5.1 [facility] Comment on above: Order Comment: 211-2 Performed By: #### L 501.8100, L501.7700, L500.4050, L100.0100 #### [facility] [address] [place], [address] Sodium [Moles/Vol] 140 mmol/L Normal 136-145 [facility] Comment on above: Order Comment: 211-2 Performed By: #### L 501.8100, L501.7700, L500.4050, L100.0100 #### [facility] [address] [place], [address] T PROT 6.9 g/dL Normal 6.4-8.2 [facility] Comment on above: Order Comment: 211-2 Performed By: #### L 501.8100, L501.7700, L500.4050, L100.0100 #### [facility] [address] [place], [address] Urea nitrogen [Mass/Vol] 19 mg/dL High 7-18 [facility] Comment on above: Order Comment: 211-2 Performed By: #### L 501.8100, L501.7700, L500.4050, L100.0100 #### [facility] [place] [address] [place], [address] Eosinophil percentageOrdered By: Todd Velasquez on 09-29-2024 Eosinophils/100 WBC (Bld) 1.8 % 0-5 [facility] Erythrocyte distribution wid th (RBC) [Ratio]Ordered By: Todd Velasquez on 09-29-2024 Erythrocyte distribution width (RBC) [Entitic vol] 46.8 fL High 35.1-43.9 [facility] Erythrocyte distribution wid th ratioOrdered By: Todd Velasquez on 09-29-2024 Erythrocyte distribution width (RBC) [Ratio] 13.7 % 11.6-14.6 [facility] Estimated glomerular filtrat ion rate (GFR) AmericanOrdered By: Todd Velasquez on 09-29-2024 Estimated GFR (MDRD) Amer 90 mL/min >60 [facility] Comment on above: GFR Calc Glomerular filtration rate ( GFR) estimationOrdered By: Todd Velasquez on 09-29-2024 Estimated GFR (MDRD) Non-Af Amer 74 mL/min >60 [facility] Comment on above: Non- GFR Calc Glucose measurementOrdered B y: Todd Velasquez on 09-29-2024 Glucose [Mass/Vol] 91 mg/dL 74-106 [facility] Hematocrit Auto (Bld) [Volum e fraction]Ordered By: Todd Velasquez on 09-29-2024 Hematocrit (Bld) [Volume fraction] 34.3 % Low 37-47 [facility] Hemoglobin measurementOrdere d By: Todd Velasquez on 09-29-2024 Hemoglobin (Bld) [Mass/Vol] 10.7 g/dL Low 12.0-15.0 [facility] Immature granulocytes/100 WB C Auto (Bld)Ordered By: Todd Velasquez on 09-29-2024 Immature granulocytes/100 WBC (Bld) 0.300 % 0.0-0.9 [facility] Comment on above: IG% - Immature Granu locytes (promyelocytes, myelocytes and metamyelocytes) > 1% indicates that a LEFT SHIFT is Present. Laboratory - Chemistry and C hemistry - challengeOrdered By: Todd Velasquez on 09-29-2024 AST [Catalytic activity/Vol] 24 U/L 15-37 [facility] Lymphocytes Auto (Unsp spec) [#/Vol]Ordered By: Todd Velasquez on 09-29-2024 Lymphocytes (Bld) [#/Vol] 2.51 10*3/uL 0.83-4.51 [facility] Lymphocytes/100 WBC Auto (Un sp spec)Ordered By: Todd Velasquez on 09-29-2024 Lymphocytes/100 WBC (Bld) 37.1 % 19-41 [facility] MCV (mean corpuscular volume ) determinationOrdered By: Todd Velasquez on 09-29-2024 MCV (RBC) [Entitic vol] 93.7 fL 81-99 [facility] Mean corpuscular hemoglobin (MCH) determinationOrdered By: Todd Velasquez on 09-29-2024 MCH (RBC) [Entitic mass] 29.2 pg 27.0-32.0 [facility] Mean corpuscular hemoglobin concentration (MCHC) determinationOrdered By: Todd Velasquez on 09-29-2024 MCHC (RBC) [Mass/Vol] 31.2 g/dL Low 32-36 [facility] Mean platelet volume determi nationOrdered By: Todd Velasquez on 09-29-2024 Platelet mean volume (Bld) [Entitic vol] 11.8 fL 6.2-12.0 [facility] Monocyte percentageOrdered B y: Todd Velasquez on 09-29-2024 Monocytes/100 WBC (Bld) 12.1 % High 0-10 [facility] Neutrophil percentageOrdered By: Todd Velasquez on 09-29-2024 Neutrophils/100 WBC (Bld) 48.0 % 47-70 [facility] Nucleated red blood cell per centageOrdered By: Todd Velasquez on 09-29-2024 Nucleated RBC/100 WBC (Bld) [Ratio] 0 % 0-5 [facility] Phenytoin (Dilantin) Levelon 09-29-2024 PHENYTOIN 14.0 mL Normal 10.0-20.0 [facility] Comment on above: Order Comment: 211-2 0730 Performed By: #### L 501.8100, L501.7700, L500.4050, L100.0100 #### [facility] [place] [address] [place], [address] Phenytoin [Mass/Vol]Ordered By: Todd Velasquez on 09-29-2024 Phenytoin (Dilantin) Level 14.0 mL 10.0-20.0 [facility] Platelet countOrdered By: Whitley on 09-29-2024 Platelets (Bld) [#/Vol] 195 10*3/uL 150-450 [facility] Potassium measurementOrdered By: Todd Velasquez on 09-29-2024 Potassium [Moles/Vol] 4.3 mmol/L 3.5-5.1 [facility] RBC Auto (Bld) [#/Vol]Ordere d By: Todd Velasquez on 09-29-2024 RBC (Bld) [#/Vol] 3.66 10*6/uL Low 4.2-5.4 [facility] Serum anion gap measurementO rdered By: Todd Velasquez on 09-29-2024 Anion gap [Moles/Vol] 6 mmol/L 5-15 [facility] Serum globulin measurementOr dered By: Todd Velasquez on 09-29-2024 Globulin (S) [Mass/Vol] 4.0 g/dL 2.2-4.2 [facility] Serum or plasma alanine ignacio otransferase (ALT) measurementOrdered By: Todd Velasquez on 09-29-2024 ALT [Catalytic activity/Vol] 18 U/L 13-56 [facility] Serum or plasma albumin jacob urement (mass/volume)Ordered By: Todd Velasquez on 09-29-2024 Albumin [Mass/Vol] 2.9 g/dL Low 3.2-5.0 [facility] Serum or plasma alkaline phillip sphatase measurementOrdered By: Todd Velasquez on 09-29-2024 ALP [Catalytic activity/Vol] 114 U/L 45-117 [facility] Serum or plasma calcium jacob urement (mass/volume)Ordered By: Todd Velasquez on 09-29-2024 Calcium [Mass/Vol] 9.2 mg/dL 8.5-10.1 [facility] Serum or plasma creatinine m easurement (mass/volume)Ordered By: Todd Velasquez on 09-29-2024 Creatinine [Mass/Vol] 0.80 mg/dL 0.55-1.02 [facility] Comment on above: The validity of the calculated GFR & GFRAA in patients over 70 years has not been determined. Clinical correlation is essential. Serum or plasma urea nitroge n measurement (mass/volume)Ordered By: Todd Velasquez on 09-29-2024 Urea nitrogen [Mass/Vol] 19 mg/dL High 7-18 [facility] Sodium levelOrdered By: Todd Velasquez on 09-29-2024 Sodium [Moles/Vol] 140 mmol/L 136-145 [facility] Total proteinOrdered By: Ignacia Velasquez on 09-29-2024 Protein [Mass/Vol] 6.9 g/dL 6.4-8.2 [facility] Valproate levelOrdered By: Barbara Velasquez on 09-29-2024 Valproic Acid (Depakene) Level 87 ug/mL 50-100 [facility] Valproic Acid (Depakene) Lev maribell 09-29-2024 VALPROIC ACID 87 ug/mL Normal 50-100 [facility] Comment on above: Order Comment: 729 Performed By: #### L 501.8100, L501.7700, L500.4050, L100.0100 #### [facility] [address], [place], [id number] White blood cell (WBC) count Ordered By: Todd Velasquez on 09-29-2024 WBC (Bld) [#/Vol] 6.8 10*3/uL 4.4-11.0 [facility] Ammoniaon 09-26-2024 Ammonia (P) [Moles/Vol] 41.0 umol/L High 11-32 [facility] Comment on above: Order Comment: Performed By: #### L 501.8100, L501.7700, L500.4050, L100.0100 #### [facility] [address] [place], [address] Kuldip 09-26-2024 CNPN Telephone (NE60MN) -------- KATHERYN CHINO ([id number]) 1945 F Date Time Provider Department 09/26/24 JAYANT JIMENEZ NE50MN During your visit today, we recorded the following information about you: Sherrell Bojorquez RN 09/26/2024 1:14 PM Signed Per patient's nurseKatia - recent labs are trough No ETH level completed Current ASMs: PHT 100 mg BID VPA 750 mg TID ETH 250 mg BID Forwarded to [facility] [employer] [place] for review/recommendation Sherrell Bojorquez RN Per MALCOLM of 09/24/2024 w/Dr. Jimenez The doses listed on facility paperwork are different than what was listed on discharge summary at [facility]. 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 (more content not included)... Normal [facility] Phenytoin (Dilantin) Levelon 09-26-2024 PHENYTOIN 15.4 mL Normal 10.0-20.0 [facility] Comment on above: Order Comment: 211-2 Performed By: #### L 501.8100, L501.7700, L500.4050, L100.0100 #### [facility] [address] [place], [address] Phenytoin [Mass/Vol]Ordered By: Todd Velasquez on 09-26-2024 Phenytoin (Dilantin) Level 15.4 mL 10.0-20.0 [facility] Valproate levelOrdered By: Barbara Velasquez on 09-26-2024 Valproic Acid (Depakene) Level 112 ug/mL High 50-100 [facility] Valproic Acid (Depakene) Lev maribell 09-26-2024 VALPROIC ACID 112 ug/mL High 50-100 [facility] Comment on above: Order Comment: 211-2 Performed By: #### L 501.8100, L501.7700, L500.4050, L100.0100 #### [facility] [address] [place], [address] Venous blood ammonia measure mentOrdered By: Todd Velasquez on 09-26-2024 Ammonia (P) [Moles/Vol] 41.0 umol/L High 11-32 [facility] CNOVon 09-24-2024 CNOV Office Visit (NEEPBA ) -------- KATHERYN CHINO ([id number]) 1945 F Date Time Provider Department 09/24/24 [...] as Ammonia (needs to be done at [facility]) I will order a bone scan called DEXA to see if you have suffered osteoporosis due to jail use of seizure medications. Reduce the morning [...] precautions - No driving in the state [facility] until seizure free for 6 [...] factor. Jayant Jimenez MD Associate Staff, Epilepsy [facility] September 24, 2024 Office phone: [phone] BONE MINERAL DENSITY PATIENT INSTRUCTIONS Bone mineral [...] Jayant Jimenez MD 09/24/2024 11:19 AM Signed [facility] Patient Name: Katheryn GARCIA Date of : 1945 INITIAL EPILEPSY CLINIC NOTE 09/24/2024 8:00 AM CHIEF COMPLAINT: New Patient and Epilepsy HISTORY OF PRESENT ILLNESS Ms. Chino is a 79 year old female seen in [facility] for [...] with AEDs . [place] moved to a [place] and she has more suervison with AEDs [...] it lasted ~ 25 mins). Admitted to [facility] where Dilantin and Depakote levels were low. [...] Levelon 09-22-2024 PHENYTOIN 21.7 mL High 10.0-20.0 [facility] Comment on above: Order Comment: 211-2 0730 Performed By: #### L 501.8100, L501.7700, L500.4050, L100.0100 #### [facility] [address] [place], [address] Phenytoin [Mass/Vol]Ordered By: Todd Velasquez on 09-22-2024 Phenytoin (Dilantin) Level 21.7 mL High 10.0-20.0 [facility] CNPNon 09-19-2024 CNPN Telephone (NE50MN) -------- KATHERYN CHINO ([id number]) 1945 F Date Time Provider Department 09/19/24 JAYANT JIMENEZ NE50MN During your visit today, we recorded the following information about you: Alexandra Sainz 09/19/2024 4:18 PM Signed OUTSIDE LAB REPORT [facility] PHONE/FAX: [phone] / [phone] COLLECTION DATE AND TIME: 09/19/2024 - 06:15 Uploaded to Silvia Abernathy RN 09/22/2024 12:09 PM Signed See 09/05/24 phone encounter PHT 21.9 Range 10 - 20 Taking PHT 100 mg BID Silvia Rogers RN Allergies As of Date: 09/19/2024 (No Known Allergies) Date Reviewed: 08/19/2024 Reviewed by: Tj Witt RN - Fully Assessed Reason for Visit: Outside Lab Results [093] Cmt: PHENYTOIN Prescriptions as of 09/22/2024 - [...] Status:Closed by SILVIA ROGERS on 09/22/24 Normal [facility] Phenytoin (Dilantin) Levelon 09-19-2024 PHENYTOIN 21.9 mL High 10.0-20.0 [facility] Comment on above: Order Comment: 729 Performed By: #### L 501.8100, L501.7700, L500.4050, L100.0100 #### [facility] [address] [place], [place], [id number] (269) Phenytoin [Mass/Vol]Ordered By: Todd Velasquez on 09-19-2024 Phenytoin (Dilantin) Level 21.9 mL High 10.0-20.0 [facility] Phenytoin (Dilantin) Levelon 09-17-2024 PHENYTOIN 22.0 mL High 10.0-20.0 [facility] Comment on above: Order Comment: 194 Performed By: #### L 501.7700 #### [facility] [address] [place], [place], [id number] (224) Phenytoin [Mass/Vol]Ordered By: Todd Velasquez on 09-17-2024 Phenytoin (Dilantin) Level 22.0 mL High 10.0-20.0 [facility] Phenytoin (Dilantin) Levelon 09-15-2024 PHENYTOIN 25.1 mL High 10.0-20.0 [facility] Comment on above: Order Comment: 0000 Performed By: #### L 501.8100, L501.7700 #### [facility] [address] [place], [place], [phone] Valproic Acid (Depakene) Lev maribell 09-15-2024 VALPROIC ACID 92 ug/mL Normal 50-100 [facility] Comment on above: Order Comment: 211.2 0000 Performed By: #### L 501.8100, L501.7700 #### [facility] [place], [address] Kuldip 09-05-2024 CNPN Telephone (NE50MN) -------- KATHERYN CHINO ([id number]) 1945 F Date Time Provider Department 09/05/24 JAYANT JIMENEZ NE50MN During your visit today, we recorded the following information about you: Alexandra Sainz 09/05/2024 2:22 PM Signed Form received: From (agency / facility / parent): [facility] route driver salesperson (if given): Brea Malloy RN Phone #: [phone] Fax # : [phone] Email: n/a Information requested: Review Labs Collected 09/05/2024 - 05:30 for Valproic Acid and Dilantin and approval for medication dosages Patient of Dr. Jimenez Forwarded to nurse. Also uploaded to [facility]. Sherrell Bojorquez RN 09/05/2024 3:11 PM Signed [facility] - left message for nursing staff to contact office MEGA Mondragon Elizabeth, MEGA 09/05/2024 3:11 PM Signed Patient update per nurse Renae, [facility]: - Last known seizure: 08/17/2024 - labs [...] trough NOV: 09/24/2024 w/Dr. Jimenez Forwarded to [facility] [place] for review Sherrell Bojorquez RN Per neurology [...] 4:34 PM Signed Spoke with nurse Renae, [facility] - provided recommendation/she verbalizes understanding. MEGA Mondragon Christina M, RN 09/22/2024 12:09 PM Signed === MEGA Christianson Kelly, APRN.DWAYNE 09/22/2024 3:12 PM Addendum PHT level mildly elevated- if no se's would continue current dose Artis Hamilton APRN.Silvia Willis RN 09/23/2024 5:14 PM Signed Spoke with ADIA Chen at [facility]. Confirmed no side effects and to continue with current PHT doses. April verbalized understanding. MEGA Christianson, Yocasta 09/26/2024 12:38 PM Signed VPA labs [...] - pantoprazo (more content not included)... Normal [facility] Phenytoin (Dilantin) Levelon 09-05-2024 PHENYTOIN 15.2 mL Normal 10.0-20.0 [facility] Comment on above: Order Comment: 729 Performed By: #### L 501.8100, L501.7700, L500.4050, L100.0100 #### [facility] [address] [place], [address] Valproic Acid (Depakene) Lev maribell 09-05-2024 VALPROIC ACID 120 ug/mL High 50-100 [facility] Comment on above: Order Comment: 729 Performed By: #### L 501.8100, L501.7700, L500.4050, L100.0100 #### [facility] [address] [place], [address] Basic Metabolic Profile (BMP )on 08-27-2024 BUN/CRE 22.3 RATIO High 10-20 [facility] Comment on above: Order Comment: Performed By: #### L 500.4050, L100.0500 #### [facility] [address] [place], [address] CA,Total 8.8 mg/dL Normal 8.5-10.1 [facility] Comment on above: Order Comment: Performed By: #### L 500.4050, L100.0500 #### [facility] [address] [place], [address] Chloride [Moles/Vol] 110 mmol/L High 98-107 [facility] Comment on above: Order Comment: Performed By: #### L 500.4050, L100.0500 #### [facility] [address] [place], [address] CO2 [Moles/Vol] 28.0 mmol/L Normal 21.0-32.0 [facility] Comment on above: Order Comment: Performed By: #### L 500.4050, L100.0500 #### [facility] [address] [place], [address] Creatinine [Mass/Vol] 0.67 mg/dL Normal 0.55-1.02 [facility] Comment on above: Order Comment: Result Comment: The validity of the calculated GFR GFRAA in patients over 70 years has not been determined. Clinical correlation is essential. Performed By: #### L 500.4050, L100.0500 #### [facility] [address] [place], [address] EST GFR - AA 109 mL/min Normal >60 [facility] Comment on above: Order Comment: Result Comment: Afri can Barbadian GFR Calc Performed By: #### L 500.4050, L100.0500 #### [facility] [address] [place], [address] GAP 5 Normal 5-15 [facility] Comment on above: Order Comment: Performed By: #### L 500.4050, L100.0500 #### [facility] [address] [place], [address] GFR/1.73 sq M.predicted among non-blacks MDRD (S/P/Bld) [Vol rate/Area] 90 mL/min/{1.73_m2} Normal >60 [facility] Comment on above: Order Comment: Result Comment: Non- GFR Calc Performed By: #### L 500.4050, L100.0500 #### [facility] [address] [place], [address] Glucose [Mass/Vol] 88 mg/dL Normal 74-106 [facility] Comment on above: Order Comment: Performed By: #### L 500.4050, L100.0500 #### [facility] [address] [place], [address] Potassium [Moles/Vol] 4.3 mmol/L Normal 3.5-5.1 [facility] Comment on above: Order Comment: - Performed By: #### L 500.4050, L100.0500 #### [facility] [address] [place], [address] Sodium [Moles/Vol] 142 mmol/L Normal 136-145 [facility] Comment on above: Order Comment: - Performed By: #### L 500.4050, L100.0500 #### [facility] [address] [place], [address] Urea nitrogen [Mass/Vol] 15 mg/dL Normal 7-18 [facility] Comment on above: Order Comment: - Performed By: #### L 500.4050, L100.0500 #### [facility] [address] [place], [address] CBC-Complete Blood Cnt No Di ffon 08-27-2024 Erythrocyte distribution width (RBC) [Ratio] 13.7 % Normal 11.6-14.6 [facility] Comment on above: Order Comment: - Performed By: #### L 500.4050, L100.0500 #### [facility] [address] [place], [address] Hematocrit (Bld) [Volume fraction] 36.7 % Low 37-47 [facility] Comment on above: Order Comment: - Performed By: #### L 500.4050, L100.0500 #### [facility] [address] [place], [address] Hemoglobin (Bld) [Mass/Vol] 11.7 g/dL Low 12.0-15.0 [facility] Comment on above: Order Comment: - Performed By: #### L 500.4050, L100.0500 #### [facility] [address] [place], [address] MCH (RBC) [Entitic mass] 29.7 pg Normal 27.0-32.0 [facility] Comment on above: Order Comment: - Performed By: #### L 500.4050, L100.0500 #### [facility] [address] [place] [place], [address] MCHC (RBC) [Mass/Vol] 31.9 g/dL Low 32-36 [facility] Comment on above: Order Comment: - Performed By: #### L 500.4050, L100.0500 #### [facility] [address] [place] [place], [address] MCV (RBC) [Entitic vol] 93.1 fL Normal 81-99 [facility] Comment on above: Order Comment: - Performed By: #### L 500.4050, L100.0500 #### [facility] [address] [place], [address] Platelet mean volume (Bld) [Entitic vol] 12.4 fL High 6.2-12.0 [facility] Comment on above: Order Comment: - Performed By: #### L 500.4050, L100.0500 #### [facility] [address] [place], [address] Platelets (Bld) [#/Vol] 181 10*3/uL Normal 150-450 [facility] Comment on above: Order Comment: - Performed By: #### L 500.4050, L100.0500 #### [facility] [address] [place], [address] RBC (Bld) [#/Vol] 3.94 10*6/uL Low 4.2-5.4 [facility] Comment on above: Order Comment: - Performed By: #### L 500.4050, L100.0500 #### [facility] [address] [place], [address] RDW SD 46.8 fl High 35.1-43.9 [facility] Comment on above: Order Comment: 211-1 Performed By: #### L 500.4050, L100.0500 #### [facility] [address] [place], [place], [address] WBC (Bld) [#/Vol] 6.6 10*3/uL Normal 4.4-11.0 [facility] Comment on above: Order Comment: 211-1 Performed By: #### L 500.4050, L100.0500 #### [facility] [address] [place], [place], [address] [facility]Non 08-27-2024 [facility] (NE50MN) -------- KATHERYN CHINO ([id number]) 1945 F Date Time Provider Department 08/27/24 JAYANT JIMENEZ NE50MN During your visit today, we recorded the following information about you: Mildred Mendez 08/27/2024 3:31 PM Signed OUTSIDE LAB REPORT FACILITY NAME [facility] PHONE/FAX COLLECTION DATE AND TIME: 08/26/24 0450 Uploaded to [employer] Pt scheduled for N/C w/ Sandra Duncan RN 08/28/2024 4:09 PM Signed VPA: 08/27/2024 at 04:55 104: (? to 100) VAP 1000 mg: TID (was increased from 750 mg during recent hospitalization). Previous level ws 94 on 08/06/2024 ======== 08/17/2024 to 08/20/2024 [facility] ======== was patient of Dr. Pereira's last seen 09/01/[address] Jimenez on 09/24/2024: new consult ========= Call placed to [facility] [phone] Jimenez's number given to call back Sandra Casey RN Franchesca Arana 08/29/2024 10:26 AM Signed [facility]ima of [facility] returning Nurse call. Please call [phone] Sandra Casey RN 08/29/2024 2:04 PM Signed [...] Status:Closed by SILVIA ROGERS on 08/29/24 Normal [facility] Phenytoin (Dilantin) Levelon 08-27-2024 PHENYTOIN 9.8 mL Low 10.0-20.0 [facility] Comment on above: Order Comment: Performed By: #### L 500.4050, L100.0500 #### [facility] [address] [place], [address] Valproic Acid (Depakene) Lev maribell 08-27-2024 VALPROIC ACID 104 ug/mL High 50-100 [facility] Comment on above: Order Comment: Performed By: #### L 500.4050, L100.0500 #### [facility] [address] [place], [address] CNDSon 08-20-2024 CNDS HNO ID: [id number] Author: JUAN JOSE HENDERSON DO Service: Hospital [...] No pending results Discharge Disposition Discharge Disposition: Nursing Home Facility - Greater than 30 Days [...] call for appointment?: Yes Orville Mendoza DO [phone] [place] [address] PCP Requested Referral Follow-Up Appointment Follow-up hospitalization With: Your neurologist When: In 3 weeks Patient/Parents to call for appointment?: Yes Additional Provider to Provider Information: Treatment Team: Attending Provider: Juan Jose Henderson DO Primary Service: SHELBY RODRIGUEZ FOLLOW-UP APPOINTMENTS ALREADY SCHEDULED WITH A [facility] PROVIDER: No future appointments. ALLERGIES No [...] THERAPY NTon 08-20-2024 THERAPY NT HNO ID: [id number] Author: ERIN MCDONNELL, PT Service: Physical Therapy Author Type: Physical Therapist Type: Therapy (PT/OT/Speech/Resp) Filed: 08/20/2024 09:58 Note Text: Physical Therapy Evaluation Summary SERVICE DATE: 08/20/2024 SERVICE TIME: 0844 to 0901 ROOM: [id number] PT 6 Clicks Score: 11 DISCHARGE RECOMMENDATIONS [facility] Recommended Discharge Disposition Comments: patient appears to be at functional baseline, reports use of nima steady and in wheelchair at discharge that she self propels. Recommend return to jail care ASSESSMENT Response to Therapy Interventions: Good [...] assist sometimes; feeds herself; has been at [facility] for past 10 years SUBJECTIVE Agreeable to PT session THERAPY DIAGNOSIS No Skilled Need TREATMENT INTERVENTIONS Evaluation $ Evaluation-Moderate (67413) Billed Units: 1 unit Skilled Treatment Time [...] at nima steady which she uses at correction. PT assisted to stabilize walker and assisted [...] SIGNATURE: Erin Mcdonnell PT PATIENT NAME: Katheryn Cihno DATE: August 20, 2024 TIME: 9:57 AM Normal [facility] THERAPY NT HNO ID: [id number] Author: BARBARA GARCIA OTR/L Service: Occupational Therapy Author Type: Occupational Therapist Type: Therapy (PT/OT/Speech/Resp) Filed: 08/20/2024 09:35 Note Text: Occupational Therapy Evaluation Summary SERVICE DATE: 08/20/2024 SERVICE TIME: 902 to 918 ROOM: [id number] OT 6 Clicks Score: 14 DISCHARGE RECOMMENDATIONS [...] assist sometimes; feeds herself; has been at [facility] for past 10 years Baseline Cognition: Oriented to self, Oriented to place, Oriented to time, Oriented to situation SUBJECTIVE agreeable to session; no c/o pain; reports feeling back to her baseline COGNITION Responsiveness: Alert Follows Commands: 1-step Commands THERAPY DIAGNOSIS Reduced mobility-other, Decreased activities of daily living (ADL) TREATMENT INTERVENTIONS Evaluation Skilled Treatment Time (minutes): 16 $ Evaluation - Low (53973) Billed Units: 1 unit TRAINING AND EDUCATION PROVIDED Activity Adaptation/Compensatory Strategies, Bed Mobility, Benefits of In-Hospital Mobility, Functional Mobility Involving ADLs, Grooming Tasks, Orientation, Role of Occupational Therapy, Sitting Balance to Improve [place] with ADLs/Self-Care THERAPEUTIC SKILLS USED Assessment of [...] Therapy Services Discontinued: No skilled needs SIGNATURE: PAIGE Leonard PATIENT NAME: Katheryn Chino DATE: August 20, 2024 TIME: 9:35 AM Normal [facility] CBC W Auto Differential pane l (Bld)on 08-18-2024 Basophils (Bld) [#/Vol] 0.07 10*3/uL Normal <0.11 [facility] Comment on above: Order Comment: Speci men Type: BLOOD SPECIMEN Ordering Facility: [facility] Address: [address] [place] [address] Performed By: #### 5 7021-8 #### [facility] CLIA [id number] [address] Basophils/100 WBC (Bld) 0.7 % Normal A [facility] Comment on above: Order Comment: Speci men Type: BLOOD SPECIMEN Ordering Facility: [facility] Address: [address] [place] [address] Performed By: #### 5 7021-8 #### [facility] CLIA [id number] [address] Differential cell count method Nom (Bld) Auto Normal [facility] Comment on above: Order Comment: Speci men Type: BLOOD SPECIMEN Ordering Facility: [facility] Address: [address] [place] [address] Performed By: #### 5 7021-8 #### [facility] CLIA [id number] [address] OF [facility] Eosinophils (Bld) [#/Vol] 10*3/uL Normal <0.46 [facility] Comment on above: Order Comment: Speci men Type: BLOOD SPECIMEN Ordering Facility: [facility] Address: [address] [place] [address] Performed By: #### 5 7021-8 #### [facility] CLIA [id number] [address] Eosinophils/100 WBC (Bld) 0.2 % Normal [facility] Comment on above: Order Comment: Speci men Type: BLOOD SPECIMEN Ordering Facility: [facility] Address: [address] [place] [address] Performed By: #### 5 7021-8 #### [facility] CLIA [id number] [address] OF [place] Erythrocyte distribution width (RBC) [Ratio] 13.7 % Normal 11.5-15.0 [facility] Comment on above: Order Comment: Speci men Type: BLOOD SPECIMEN Ordering Facility: [facility] Address: [address] [place] [address] Performed By: #### 5 7021-8 #### [facility] CLIA [id number] [address] OF [place] Hematocrit (Bld) [Volume fraction] 35.4 % Low 36.0-46.0 [facility] Comment on above: Order Comment: Speci men Type: BLOOD SPECIMEN Ordering Facility: [facility] Address: [address] [place] [address] Performed By: #### 5 7021-8 #### [facility] CLIA [id number] [address] OF [place] Hemoglobin (Bld) [Mass/Vol] 11.5 g/dL Normal 11.5-15.5 [facility] Comment on above: Order Comment: Speci men Type: BLOOD SPECIMEN Ordering Facility: [facility] Address: [address] [place] [address] Performed By: #### 5 7021-8 #### [facility] CLIA [id number] [address] [place] Immature granulocytes (Bld) [#/Vol] 0.09 10*3/uL Normal <0.10 [facility] Comment on above: Order Comment: Speci men Type: BLOOD SPECIMEN Ordering Facility: [facility] Address: [address] [place] [address] Performed By: #### 5 7021-8 #### [facility] CLIA [id number] [address] OF [place] Immature granulocytes/100 WBC (Bld) 0.9 % Normal [facility] Comment on above: Order Comment: Speci men Type: BLOOD SPECIMEN Ordering Facility: [facility] Address: [address] [place] [address] Performed By: #### 5 7021-8 #### [facility] CLIA [id number] [address] OF [place] Lymphocytes (Bld) [#/Vol] 3.08 10*3/uL Normal 1.00-4.00 [facility] Comment on above: Order Comment: Speci men Type: BLOOD SPECIMEN Ordering Facility: [facility] Address: [address] [place] [address] Performed By: #### 5 7021-8 #### [facility] CLIA [id number] [address] Lymphocytes/100 WBC (Bld) 31.9 % Normal [facility] Comment on above: Order Comment: Speci men Type: BLOOD SPECIMEN Ordering Facility: [facility] Address: [address] [place] [address] Performed By: #### 5 7021-8 #### [facility] CLIA [id number] [address] [place] OF [facility] MCH (RBC) [Entitic mass] 29.9 pg Normal 26.0-34.0 [facility] Comment on above: Order Comment: Speci men Type: BLOOD SPECIMEN Ordering Facility: [facility] Address: [address] [place] [address] Performed By: #### 5 7021-8 #### [facility] CLIA [id number] [address] OF [facility] MCHC (RBC) [Mass/Vol] 32.5 g/dL Normal 30.5-36.0 [facility] Comment on above: Order Comment: Speci men Type: BLOOD SPECIMEN Ordering Facility: [facility] Address: [address] [place] [address] Performed By: #### 5 7021-8 #### [facility] CLIA [id number] [address] [place] MCV (RBC) [Entitic vol] 92.2 fL Normal 80.0-100.0 A [facility] Comment on above: Order Comment: Speci men Type: BLOOD SPECIMEN Ordering Facility: [facility] Address: [address] [place] [address] Performed By: #### 5 7021-8 #### [facility] CLIA [id number] [address] OF [place] Monocytes (Bld) [#/Vol] 1.02 10*3/uL High <0.87 [facility] Comment on above: Order Comment: Speci men Type: BLOOD SPECIMEN Ordering Facility: [facility] Address: [address] [place] [address] Performed By: #### 5 7021-8 #### [facility] CLIA [id number] [address] [place] Monocytes/100 WBC (Bld) 10.5 % Normal A [facility] Comment on above: Order Comment: Speci men Type: BLOOD SPECIMEN Ordering Facility: [facility] Address: [address] [place] [address] Performed By: #### 5 7021-8 #### [facility] CLIA [id number] [address] [place] Neutrophils (Bld) [#/Vol] 5.39 10*3/uL Normal 1.45-7.50 [facility] Comment on above: Order Comment: Speci men Type: BLOOD SPECIMEN Ordering Facility: [facility] Address: [address] [place] [address] Performed By: #### 5 7021-8 #### [facility] CLIA [id number] [address] Neutrophils/100 WBC (Bld) 55.8 % Normal [facility] Comment on above: Order Comment: Speci men Type: BLOOD SPECIMEN Ordering Facility: [facility] Address: [address] [place] [address] Performed By: #### 5 7021-8 #### [facility] CLIA [id number] [address] OF [place] Nucleated RBC (Bld) [#/Vol] 10*3/uL Normal <0.01 [facility] Comment on above: Order Comment: Speci men Type: BLOOD SPECIMEN Ordering Facility: [facility] Address: [facility] [place] [address] Performed By: #### 5 7021-8 #### [facility] CLIA [id number] [address] [place] Nucleated RBC/100 WBC (Bld) [Ratio] 0.0 /100 WBC Normal [facility] Comment on above: Order Comment: Speci men Type: BLOOD SPECIMEN Ordering Facility: [facility] Address: [address] [place] [address] Performed By: #### 5 7021-8 #### [facility] CLIA [id number] [address] [place] Platelet mean volume (Bld) [Entitic vol] 11.1 fL Normal 9.0-12.7 [facility] Comment on above: Order Comment: Speci men Type: BLOOD SPECIMEN Ordering Facility: [facility] Address: [address] [place] [address] Performed By: #### 5 7021-8 #### [facility] CLIA [id number] [address] [place] Platelets (Bld) [#/Vol] 185 10*3/uL Normal 150-400 [facility] Comment on above: Order Comment: Speci men Type: BLOOD SPECIMEN Ordering Facility: [facility] Address: [address] [place] [address] Performed By: #### 5 7021-8 #### [facility] CLIA [id number] [address] [place] RBC (Bld) [#/Vol] 3.84 10*6/uL Low 3.90-5.20 [facility] Comment on above: Order Comment: Speci men Type: BLOOD SPECIMEN Ordering Facility: [facility] Address: [address] [place] [address] Performed By: #### 5 7021-8 #### [facility] CLIA [id number] [address] [place] WBC (Bld) [#/Vol] 9.67 10*3/uL Normal 3.70-11.00 [facility] Comment on above: Order Comment: Speci men Type: BLOOD SPECIMEN Ordering Facility: [facility] Address: [address], [place] [address] Performed By: #### 5 7021-8 #### [facility] CLIA [id number] [address] OF [facility] CONSULTon 08-18-2024 CONSULT HNO ID: [id number] Author: KEYONA SANTANA MD Service: Neurology General [...] for status epilepticus pt was transferred to [facility] for increased monitoring. Today pt reports [...] Normal [facility] CONSULT HNO ID: [id number] Author: CHASE ROBERTSON APRN.GROUNDS SUPERVISOR Service: Palliative Care Author Type: Nurse Practitioner Type: Consults Filed: 08/18/2024 12:36 Note Text: INPATIENT PALLIATIVE MEDICINE NOTE [facility] Katheryn Chino [id number] * Palliative Medicine Diagnoses: Seizures, MDD, dementia, [...] MDD, HTN, and seizures who presented from [place] with 10-15 minutes of grand mal seizures. Patient is from [place]. HCPOA 1 is brother Danny, 2 Richard, [...] prescriptions were reported. 08/18/2024 by Chase Robertson APRN.GROUNDS SUPERVISOR PAST MEDICAL HISTORY Diagnosis Date High blood [...] negative. Palliative Assessment Review of Symptoms (Modified Gaston Symptom Assessment): Pain: None Dyspnea: None Nausea: [facility] Comment on above: Order Comment: Specsandy lobato Type: BLOOD SPECIMEN Ordering Facility: [facility] Address: [address] [place] [address] Performed By: #### 1 9123-9, 41952-2 #### [facility] CLIA [id number] 1 [place] [address] [place] ALP [Catalytic activity/Vol] 115 U/L Normal 34-123 [facility] Comment on above: Order Comment: Ina lobato Type: BLOOD SPECIMEN Ordering Facility: [facility] Address: [address] [place] [address] Performed By: #### 1 23-9, 25281-8 #### [facility] CLIA [id number] [address] OF [facility] ALT With P-5'-P [Catalytic activity/Vol] 16 U/L Normal 7-38 [facility] Comment on above: Order Comment: Speci men Type: BLOOD SPECIMEN Ordering Facility: [facility] Address: [facility] [place] [address] Performed By: #### 1 9, 81880-7 #### [facility] CLIA [id number] [address] STATES OF [facility] Anion gap [Moles/Vol] 13 mmol/L Normal 8-15 [facility] Comment on above: Order Comment: Speci men Type: BLOOD SPECIMEN Ordering Facility: [facility] Address: [address] [place] [address] Performed By: #### 1 9, 75407-8 #### [facility] CLIA [id number] [address] [place] With P-5'-P [Catalytic activity/Vol] 30 U/L Normal 13-35 [facility] Comment on above: Order Comment: Speci men Type: BLOOD SPECIMEN Ordering Facility: [facility] Address: [address] [place] [address] Performed By: #### 1 239, 61894-9 #### [facility] CLIA [id number] [address] [place] Bilirubin [Mass/Vol] 0.4 mg/dL Normal 0.2-1.3 [facility] Comment on above: Order Comment: Speci men Type: BLOOD SPECIMEN Ordering Facility: [facility] Address: [address] [place] [address] Performed By: #### 1 23-9, 41278-3 #### [facility] CLIA [id number] [address] [place] Calcium [Mass/Vol] 9.3 mg/dL Normal 8.5-10.2 [facility] Comment on above: Order Comment: Speci men Type: BLOOD SPECIMEN Ordering Facility: [facility] Address: [address] [place] [address] Performed By: #### 1 9123-9, 76941-9 #### [facility] CLIA [id number] [address] [place] Chloride [Moles/Vol] 103 mmol/L Normal 98-107 [facility] Comment on above: Order Comment: Speci men Type: BLOOD SPECIMEN Ordering Facility: [facility] Address: [address] [place] [address] Performed By: #### 1 9123-9, #### [facility] CLIA [id number] [address] [place] CO2 [Moles/Vol] 25 mmol/L Normal 22-30 [facility] Comment on above: Order Comment: Speci men Type: BLOOD SPECIMEN Ordering Facility: [facility] Address: [address] [place] [address] Performed By: #### 1 9123-9, 50923-8 #### [facility] CLIA [id number] [address] [place] Creatinine [Mass/Vol] 0.81 mg/dL Normal 0.58-0.96 [facility] Comment on above: Order Comment: Speci men Type: BLOOD SPECIMEN Ordering Facility: [facility] Address: [address] [place] [address] Performed By: #### 1 9123-9, 71028-0 #### [facility] CLIA [id number] [address] Creatinine and Glomerular filtration rate.predicted panel (S/P/Bld) 75 mL/min/1.73m??? Normal >=60 [facility] Comment on above: Order Comment: Speci men Type: BLOOD SPECIMEN Ordering Facility: [facility] Address: [address] [place] [address] Result Comment: Yesika mated Glomerular Filtration Rate [...] actual GFR. Performed By: #### 1 9123-9, 70798-3 #### [facility] CLIA [id number] 1 [place] [address] [place] Glucose [Mass/Vol] 84 mg/dL Normal 74-99 [facility] Comment on above: Order Comment: Ina lobato Type: BLOOD SPECIMEN Ordering Facility: [facility] Address: [address] [place] [address] Result Comment: The [place] Diabetes Association (ADA) provides guidance for cutoff [...] Standards of Medical Care in Diabetes 2016, [place] [employer]. Diabetes Care. 2016.39(Suppl 1). Performed By: #### 1 9123-9, #### [facility] CLIA [id number] 1 [place] [address] [place] Potassium [Moles/Vol] 4.4 mmol/L Normal 3.7-5.1 [facility] Comment on above: Order Comment: Ina lobato Type: BLOOD SPECIMEN Ordering Facility: [facility] Address: [address] [place] [address] Performed By: #### 1 9123-9, 85824-5 #### [facility] CLIA [id number] 1 [place] [id number] [place] Protein [Mass/Vol] 7.4 g/dL Normal 6.3-8.0 [facility] Comment on above: Order Comment: Speci men Type: BLOOD SPECIMEN Ordering Facility: [facility] Address: [facility] [place] [address] Performed By: #### 1 9123-9, 72367-2 #### [facility] CLIA [id number] 1 [place] [address] [place] Sodium [Moles/Vol] 141 mmol/L Normal 136-144 [facility] Comment on above: Order Comment: Speci men Type: BLOOD SPECIMEN Ordering Facility: [facility] Address: [address] [place] [address] Performed By: #### 1 9123-9, 42922-2 #### [facility] CLIA [id number] 1 [place] [address] [place] Urea nitrogen [Mass/Vol] 19 mg/dL Normal 7-21 [facility] Comment on above: Order Comment: Speci men Type: BLOOD SPECIMEN Ordering Facility: [facility] Address: [address] [place] [address] Performed By: #### 1 9123-9, 71991-7 #### [facility] CLIA [id number] 1 [place] [address] [place] Magnesium SerPl-mCncon 08-18 Magnesium [Mass/Vol] 1.9 mg/dL Normal 1.7-2.3 [facility] Comment on above: Order Comment: Speci men Type: BLOOD SPECIMEN Ordering Facility[facility] Address: [address] [place] [address] Performed By: #### 1 9123-9, 37413-6 #### [facility] CLIA [id number] 1 [place] [address] [place] Phenytoin SerPl-mCncon 08-18 Phenytoin [Mass/Vol] 6.8 ug/mL Low 10.0-20.0 [facility] Comment on above: Order Comment: Speci men Type: BLOOD SPECIMEN Ordering Facility: [facility] Address: [address] [place] [address] Result Comment: Refe rence ranges and high/low indicator flags are provided as general guidelines only. The treating physician must determine appropriate target levels/dosing based on the specific clinical situation. Performed By: #### 3 968-5 #### [facility] CLIA [id number] [address] Urinalysis complete panel (U )on 08-18-2024 Bilirubin Ql (U) Negative Normal Negative [facility] Comment on above: Order Comment: Speci men Type: URINE SPECIMEN Ordering Facility: [facility] Address: [facility] [place] [address] Performed By: #### 2 4356-8 #### [facility] CLIA [id number] [address] Clarity (Unsp spec) Clear Normal Clear [facility] Comment on above: Order Comment: Speci men Type: URINE SPECIMEN Ordering Facility: [facility] Address: [address] [place] [address] Performed By: #### 2 4356-8 #### [facility] CLIA [id number] [address] Color (U) Yellow Normal yellow [facility] Comment on above: Order Comment: Speci men Type: URINE SPECIMEN Ordering Facility: [facility] Address: [address] [place] [address] Performed By: #### 2 4356-8 #### [facility] CLIA [id number] [address] Epithelial cells LM.HPF (Urine sed) [#/Area] Few Normal [facility] Comment on above: Order Comment: Speci men Type: URINE SPECIMEN Ordering Facility: [facility] Address: [address] [place] [address] Performed By: #### 2 4356-8 #### [facility] CLIA [id number] [address] Glucose Test strip (U) [Mass/Vol] Negative Normal Trace, Negative [facility] Comment on above: Order Comment: Speci men Type: URINE SPECIMEN Ordering Facility[facility] Address: [address] [place] [address] Performed By: #### 2 4356-8 #### [facility] CLIA [id number] [address] [place] Hemoglobin Ql (U) Negative Normal Negative, Trace [facility] Comment on above: Order Comment: Speci men Type: URINE SPECIMEN Ordering Facility: [facility] Address: [address] [place] [address] Performed By: #### 2 4356-8 #### [facility] CLIA [id number] [address] Ketones Ql (U) Negative Normal Negative, Trace [facility] Comment on above: Order Comment: Speci men Type: URINE SPECIMEN Ordering Facility: [facility] Address: [address] [place] [address] Performed By: #### 2 4356-8 #### [facility] CLIA [id number] [address] [place] Leukocyte esterase Test strip Ql (U) 75 James/uL Abnormal Negative, 25 James/uL [facility] Comment on above: Order Comment: Speci men Type: URINE SPECIMEN Ordering Facility: [facility] Address: [address] [place] [address] Performed By: #### 2 4356-8 #### [facility] CLIA [id number] [address] [place] Nitrite Ql (U) Negative Normal Negative [facility] Comment on above: Order Comment: Speci men Type: URINE SPECIMEN Ordering Facility: [facility] Address: [address] [place] [address] Performed By: #### 2 4356-8 #### [facility] CLIA [id number] [address] [place] pH (U) 6.0 [pH] Normal 5.0-8.0 [facility] Comment on above: Order Comment: Speci men Type: URINE SPECIMEN Ordering Facility[facility] Address: [address] [place] [address] Performed By: #### 2 4356-8 #### [facility] CLIA [id number] [address] Protein (U) [Mass/Vol] Trace Normal Trace , Negative [facility] Comment on above: Order Comment: Speci men Type: URINE SPECIMEN Ordering Facility[facility] Address: [address] [place] [address] Performed By: #### 2 4356-8 #### [facility] CLIA [id number] [address] RBC LM.HPF (Urine sed) [#/Area] 0-3 /HPF Normal 0-3 /HPF [facility] Comment on above: Order Comment: Speci men Type: URINE SPECIMEN Ordering Facility[facility] Address: [address] [place] [address] Performed By: #### 2 4356-8 #### [facility] CLIA [id number] [address] Specific gravity (U) [Rel density] 1.029 Normal 1.005-1.03 0 [facility] Comment on above: Order Comment: Speci men Type: URINE SPECIMEN Ordering Facility[facility] Address: [address] [place] [address] Performed By: #### 2 4356-8 #### [facility] CLIA [id number] [address] Urobilinogen Ql (U) Normal Normal Normal [facility] Comment on above: Order Comment: Speci men Type: URINE SPECIMEN Ordering Facility[facility] Address: [address] [place] [address] Performed By: #### 2 4356-8 #### [facility] CLIA [id number] [address] WBC LM.HPF (Urine sed) [#/Area] 6-10 /HPF Abnormal 0-5 /HPF [facility] Comment on above: Order Comment: Speci men Type: URINE SPECIMEN Ordering Facility[facility] Address: [address] [place] [address] Performed By: #### 2 4356-8 #### [facility] CLIA [id number] [address] [place] Valproate Free SerPl-mCncon 08-18-2024 Valproate Free [Mass/Vol] 1.8 ug/mL Low 4.0-30.0 [facility] Comment on above: Order Comment: Speci men Type: BLOOD SPECIMEN Ordering Facility: [facility] Address: [address] [place] [address] Result Comment: Refe rence ranges and high/low indicator flags are provided as general guidelines only. The treating physician must determine appropriate target levels/dosing based on the specific clinical situation. This test was developed, and its performance characteristics determined by the [facility] Department of Pathology and Laboratory Medicine. It has not been cleared or approved by the FDA. The [facility] Department of Pathology and Laboratory Medicine is regulated under CLIA as qualified to perform high-complexity testing. This test is used for clinical purposes. It should not be regarded as investigational or for research. Performed By: #### 4 087-3 #### [facility] CLIA [id number] [address] [place] [address] [place] Kuldip 08-17-2024 LIBORIO Telephone (NEURTE) -------- KATHERYN CHINO ([id number]) 1945 F Date Time Provider Department 08/17/24 FRANCISCO JAVIER SALAZAR During your visit today, we recorded the following information about you: Francisco Javier Salazar MD 08/17/2024 11:50 AM Signed I received a call from the emergency room at [place] [facility] regarding a patient of Dr. Nava. [...] free 3 years. Visit with epileptologist at [facility] epilepsy clinic and long EEG are indicated at this time due to rare seizures. Events on 08/17/2024 Patient had a 15-minute seizure in the correction. She had not had any seizures recently. [...] Patient has not been seen in the [facility] system since 2019. At the minimum she needs an evaluation to reassess her epilepsy. Francisco Javier Salazar MD Neurology. (Telemedicine neurologist) Allergies As of Date: 08/17/2024 (No Known Allergies) Date Reviewed: 09/01/2019 Reviewed by: Katalina Al ([facility]) - Fully Assessed Prescriptions as of [...] losartan potassium (more content not included)... 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 Pt arouses to name called. Pt is not speaking. Pt siderails padded. Call light in reach. Bed low and alarm activated. Vss. No distress observed at this time. Normal [facility] No Panel InformationOrdered By: Todd Velasquez on 11-05-2023 Valproic Acid (Depakene) Level 95 ug/mL 50-100 [facility] Absolute lymphocyte countOrd ered By: Todd Velasquez on 10-29-2023 Lymphocytes Auto (Unsp spec) [#/Vol] 2.23 10*3/uL 0.83-4.51 [facility] Basophil percentageOrdered B y: Todd Velasquez on 10-29-2023 Basophils/100 WBC (Bld) 0.7 % 0-1 [facility] Bilirubin [Mass/Vol] 0.40 mg/dL 0.20-1.00 [facility] Comment on above: For patients on eltr ombopag therapy, use of Dimension [place] TBIL is not recommended. Chloride [Moles/Vol] 106 mmol/L 98-107 [facility] Eosinophils/100 WBC (Bld) 1.6 % 0-5 [facility] Glucose [Mass/Vol] 88 mg/dL 74-106 [facility] Neutrophils (Bld) [#/Vol] 4.7 10*3/uL 2.0-7.7 [facility] Neutrophils/100 WBC (Bld) 58.1 % 47-70 [facility] Potassium [Moles/Vol] 4.3 mmol/L 3.5-5.1 [facility] Protein [Mass/Vol] 7.0 g/dL 6.4-8.2 [facility] Sodium [Moles/Vol] 139 mmol/L 136-145 [facility] WBC (Bld) [#/Vol] 8.1 10*3/uL 4.4-11.0 [facility] Blood erythrocytes count (nu mber/volume)Ordered By: Todd Velasquez on 10-29-2023 RBC (Bld) [#/Vol] 3.91 10*6/uL 4.2-5.4 [facility] Blood hemoglobin measurement (mass/volume)Ordered By: Todd Velasquez on 10-29-2023 Hemoglobin (Bld) [Mass/Vol] 12.1 g/dL 12.0-15.0 [facility] Blood lymphocytes/100 leukoc ytesOrdered By: Todd Velasquez on 10-29-2023 Lymphocytes/100 WBC (Bld) 27.7 % 19-41 [facility] Blood monocytes/100 leukocyt esOrdered By: Todd Velasquez on 10-29-2023 Monocytes/100 WBC (Bld) 11.4 % 0-10 [facility] Blood platelet mean volumeOr dered By: Todd Velasquez on 10-29-2023 Platelet mean volume (Bld) [Entitic vol] 11.4 fL 6.2-12.0 [facility] Determination of erythrocyte mean corpuscular volume (MCV)Ordered By: Todd Velasquez on 10-29-2023 MCV (RBC) [Entitic vol] 93.9 fL 81-99 [facility] Hematocrit Auto (Bld) [Volum e fraction]Ordered By: Todd Velasquez on 10-29-2023 Hematocrit (Bld) [Volume fraction] 36.7 % 37-47 [facility] - Chemistry and C hemistry - challengeOrdered By: Todd Velasquez on 10-29-2023 ALP [Catalytic activity/Vol] 103 U/L 45-117 [facility] ALT [Catalytic activity/Vol] 12 U/L 13-56 [facility] CO2 [Moles/Vol] 26.0 mmol/L 21.0-32.0 [facility] Globulin (S) [Mass/Vol] 3.8 g/dL 2.2-4.2 [facility] Urea nitrogen/Creatinine [Mass ratio] 18.9 mg/mg 10-20 [facility] - Hematology and Cell countsOrdered By: Todd Velasquez on 10-29-2023 Erythrocyte distribution width (RBC) [Entitic vol] 44.3 fL 35.1-43.9 [facility] Erythrocyte distribution width (RBC) [Ratio] 13.0 % 11.6-14.6 [facility] Immature granulocytes/100 WBC (Bld) 0.500 % 0.0-0.9 [facility] Comment on above: IG% - Immature Granu locytes (promyelocytes, myelocytes and metamyelocytes) > 1% indicates that a LEFT SHIFT is Present. MCH (RBC) [Entitic mass] 30.9 pg 27.0-32.0 [facility] Nucleated RBC/100 WBC (Bld) [Ratio] 0 % 0-5 [facility] MCHC Auto (RBC) [Mass/Vol]Or dered By: Todd Velasquez on 10-29-2023 MCHC (RBC) [Mass/Vol] 33.0 g/dL 32-36 [facility] No Panel InformationOrdered By: Todd Velasqeuz on 10-29-2023 Estimated GFR (MDRD) Amer 107 mL/min >60 [facility] Comment on above: GFR Calc Estimated GFR (MDRD) Non-Af Amer 88 mL/min >60 [facility] Comment on above: Non- GFR Calc Valproic Acid (Depakene) Level 116 ug/mL 50-100 [facility] Platelets bldOrdered By: Ignacia Velasquez on 10-29-2023 Platelets (Bld) [#/Vol] 194 10*3/uL 150-450 [facility] Serum or plasma albumin jacob urement (mass/volume)Ordered By: Todd Velasquez on 10-29-2023 Albumin [Mass/Vol] 3.2 g/dL 3.2-5.0 [facility] Serum or plasma albumin/glob ulin mass ratioOrdered By: Todd Velasquez on 10-29-2023 Albumin/Globulin [Mass ratio] 0.8 {ratio} 0.9-2.4 [facility] Serum or plasma calcium jacob urement (mass/volume)Ordered By: Todd Velasquez on 10-29-2023 Calcium [Mass/Vol] 9.2 mg/dL 8.5-10.1 [facility] Serum or plasma creatinine m easurement (mass/volume)Ordered By: Todd Velasquez on 10-29-2023 Creatinine [Mass/Vol] 0.69 mg/dL 0.55-1.02 [facility] Comment on above: The validity of the calculated GFR & GFRAA in patients over 70 years has not been determined. Clinical correlation is essential. Serum or plasma phenytoin me asurement (mass/volume)Ordered By: Todd Velasquez on 10-29-2023 Phenytoin [Mass/Vol] 7.4 mL 10.0-20.0 [facility] Serum or plasma urea nitroge n measurement (mass/volume)Ordered By: Todd Velasquez on 10-29-2023 Urea nitrogen [Mass/Vol] 13 mg/dL 7-18 [facility] Thin prep Papanicolaou smear with manual screeningOrdered By: Todd Velasquez on 10-29-2023 Thin prep Papanicolaou smear with manual screening 19 U/L 15-37 [facility] Thin prep Papanicolaou smear with manual screening 7 5-15 [facility] Serum or plasma phenytoin me asurement (mass/volume)Ordered By: Todd Velasquez on 09-25-2023 Phenytoin [Mass/Vol] 9.6 mL 10.0-20.0 [facility] Absolute lymphocyte countOrd ered By: Kee Amezquita on 09-18-2023 Lymphocytes Auto (Unsp spec) [#/Vol] 1.37 10*3/uL 0.83-4.51 [facility] Basophil percentageOrdered B y: Kee Amezquita on 09-18-2023 Basophils/100 WBC (Bld) 1.0 % 0-1 [facility] Chloride [Moles/Vol] 106 mmol/L 98-107 [facility] Eosinophils/100 WBC (Bld) 1.6 % 0-5 [facility] Glucose [Mass/Vol] 107 mg/dL 74-106 [facility] Comment on above: Fasting Glucose resu lt from 100 to 125 mg/dL suggests IMPAIRED HOMEOSTASIS per A.D.A. criteria. Neutrophils (Bld) [#/Vol] 3.7 10*3/uL 2.0-7.7 [facility] Neutrophils/100 WBC (Bld) 64.8 % 47-70 [facility] Potassium [Moles/Vol] 4.0 mmol/L 3.5-5.1 [facility] Sodium [Moles/Vol] 138 mmol/L 136-145 [facility] WBC (Bld) [#/Vol] 5.7 10*3/uL 4.4-11.0 [facility] Blood erythrocytes count (nu mber/volume)Ordered By: Kee Amezquita on 09-18-2023 RBC (Bld) [#/Vol] 4.37 10*6/uL 4.2-5.4 [facility] Blood hemoglobin measurement (mass/volume)Ordered By: Kee Amezquita on 09-18-2023 Hemoglobin (Bld) [Mass/Vol] 13.4 g/dL 12.0-15.0 [facility] Blood lymphocytes/100 leukoc ytesOrdered By: Kee Amezquita on 09-18-2023 Lymphocytes/100 WBC (Bld) 23.9 % 19-41 [facility] Blood monocytes/100 leukocyt esOrdered By: Kee Amezquita on 09-18-2023 Monocytes/100 WBC (Bld) 8.0 % 0-10 [facility] Blood platelet mean volumeOr dered By: Kee Amezquita on 09-18-2023 Platelet mean volume (Bld) [Entitic vol] 10.9 fL 6.2-12.0 [facility] [facility] Determination of erythrocyte mean corpuscular volume (MCV)Ordered By: Kee Amezquita on 09-18-2023 MCV (RBC) [Entitic vol] 93.8 fL 81-99 [facility] Hematocrit Auto (Bld) [Volum e fraction]Ordered By: Kee Amezquita on 09-18-2023 Hematocrit (Bld) [Volume fraction] 41.0 % 37-47 [facility] - Chemistry and C hemistry - challengeOrdered By: Kee Amezquita on 09-18-2023 CO2 [Moles/Vol] 26.0 mmol/L 21.0-32.0 [facility] Urea nitrogen/Creatinine [Mass ratio] 16.6 mg/mg 10-20 [facility] - Hematology and Cell countsOrdered By: Kee Amezquita on 09-18-2023 Erythrocyte distribution width (RBC) [Entitic vol] 43.6 fL 35.1-43.9 [facility] Erythrocyte distribution width (RBC) [Ratio] 12.5 % 11.6-14.6 [facility] Immature granulocytes/100 WBC (Bld) 0.700 % 0.0-0.9 [facility] Comment on above: IG% - Immature Granu locytes (promyelocytes, myelocytes and metamyelocytes) > 1% indicates that a LEFT SHIFT is Present. MCH (RBC) [Entitic mass] 30.7 pg 27.0-32.0 [facility] Nucleated RBC/100 WBC (Bld) [Ratio] 0 % 0-5 [facility] MCHC Auto (RBC) [Mass/Vol]Or dered By: Kee Amezquita on 09-18-2023 MCHC (RBC) [Mass/Vol] 32.7 g/dL 32-36 [facility] No Panel InformationOrdered By: Kee Amezquita on 09-18-2023 Estimated Creatinine Clearance Calc 41.33 ml/min [facility] Estimated GFR (MDRD) Amer 92 mL/min >60 [facility] Comment on above: GFR Calc Estimated GFR (MDRD) Non-Af Amer 76 mL/min >60 [facility] Comment on above: Non- GFR Calc Valproic Acid (Depakene) Level 70 ug/mL 50-100 [facility] Platelets bldOrdered By: Praneeth Amezquita on 09-18-2023 Platelets (Bld) [#/Vol] 210 10*3/uL 150-450 [facility] Serum or plasma calcium jacob urement (mass/volume)Ordered By: Kee Amezquita on 09-18-2023 Calcium [Mass/Vol] 9.1 mg/dL 8.5-10.1 [facility] Serum or plasma creatinine m easurement (mass/volume)Ordered By: Kee Amezquita on 09-18-2023 Creatinine [Mass/Vol] 0.78 mg/dL 0.55-1.02 [facility] Comment on above: The validity of the calculated GFR & GFRAA in patients over 70 years has not been determined. Clinical correlation is essential. Serum or plasma phenytoin me asurement (mass/volume)Ordered By: Kee Amezquita on 09-18-2023 Phenytoin [Mass/Vol] 9.6 mL 10.0-20.0 [facility] Serum or plasma urea nitroge n measurement (mass/volume)Ordered By: Kee Amezquita on 09-18-2023 Urea nitrogen [Mass/Vol] 13 mg/dL 7-18 [facility] Thin prep Papanicolaou smear with manual screeningOrdered By: Kee Amezquita on 09-18-2023 Thin prep Papanicolaou smear with manual screening 6 5-15 [facility] No Panel InformationOrdered By: Todd Velasquez on 08-15-2023 Valproic Acid (Depakene) Level 91 ug/mL 50-100 [facility] Serum or plasma phenytoin me asurement (mass/volume)Ordered By: Todd Velasquez on 08-15-2023 Phenytoin [Mass/Vol] 8.2 mL 10.0-20.0 [facility] Absolute lymphocyte countOrd ered By: Todd Velasquez on 08-06-2023 Lymphocytes Auto (Unsp spec) [#/Vol] 2.35 10*3/uL 0.83-4.51 [facility] Basophil percentageOrdered B y: Todd Velasquez on 08-06-2023 Basophils/100 WBC (Bld) 0.8 % 0-1 [facility] Bilirubin [Mass/Vol] 0.40 mg/dL 0.20-1.00 [facility] Comment on above: For patients on eltr ombopag therapy, use of [employer] [place] TBIL is not recommended. Chloride [Moles/Vol] 108 mmol/L 98-107 [facility] Eosinophils/100 WBC (Bld) 2.1 % 0-5 [facility] Glucose [Mass/Vol] 90 mg/dL 74-106 [facility] Neutrophils (Bld) [#/Vol] 3.0 10*3/uL 2.0-7.7 [facility] Neutrophils/100 WBC (Bld) 48.5 % 47-70 [facility] Potassium [Moles/Vol] 4.5 mmol/L 3.5-5.1 [facility] Protein [Mass/Vol] 6.7 g/dL 6.4-8.2 [facility] Sodium [Moles/Vol] 140 mmol/L 136-145 [facility] WBC (Bld) [#/Vol] 6.2 10*3/uL 4.4-11.0 [facility] Blood erythrocytes count (nu mber/volume)Ordered By: Todd Velasquez on 08-06-2023 RBC (Bld) [#/Vol] 3.90 10*6/uL 4.2-5.4 [facility] Blood hemoglobin measurement (mass/volume)Ordered By: Todd Velasquez on 08-06-2023 Hemoglobin (Bld) [Mass/Vol] 12.1 g/dL 12.0-15.0 [facility] Blood lymphocytes/100 leukoc ytesOrdered By: Todd Velasquez on 08-06-2023 Lymphocytes/100 WBC (Bld) 38.0 % 19-41 [facility] Blood monocytes/100 leukocyt esOrdered By: Todd Velasquez on 08-06-2023 Monocytes/100 WBC (Bld) 10.3 % 0-10 [facility] Blood platelet mean volumeOr dered By: Todd Velasquez on 08-06-2023 Platelet mean volume (Bld) [Entitic vol] 11.8 fL 6.2-12.0 [facility] Determination of erythrocyte mean corpuscular volume (MCV)Ordered By: Todd Velasquez on 08-06-2023 MCV (RBC) [Entitic vol] 95.9 fL 81-99 [facility] Hematocrit Auto (Bld) [Volum e fraction]Ordered By: Todd Velasquez on 08-06-2023 Hematocrit (Bld) [Volume fraction] 37.4 % 37-47 [facility] - Chemistry and C hemistry - challengeOrdered By: Todd Velasquez on 08-06-2023 ALP [Catalytic activity/Vol] 99 U/L 45-117 [facility] ALT [Catalytic activity/Vol] 18 U/L 13-56 [facility] CO2 [Moles/Vol] 29.0 mmol/L 21.0-32.0 [facility] Globulin (S) [Mass/Vol] 3.6 g/dL 2.2-4.2 [facility] Urea nitrogen/Creatinine [Mass ratio] 21.8 mg/mg 10-20 [facility] - Hematology and Cell countsOrdered By: Todd Velasquez on 08-06-2023 Erythrocyte distribution width (RBC) [Entitic vol] 46.5 fL 35.1-43.9 [facility] Erythrocyte distribution width (RBC) [Ratio] 13.1 % 11.6-14.6 [facility] Immature granulocytes/100 WBC (Bld) 0.300 % 0.0-0.9 [facility] Comment on above: IG% - Immature Granu locytes (promyelocytes, myelocytes and metamyelocytes) > 1% indicates that a LEFT SHIFT is Present. MCH (RBC) [Entitic mass] 31.0 pg 27.0-32.0 [facility] Nucleated RBC/100 WBC (Bld) [Ratio] 0 % 0-5 [facility] MCHC Auto (RBC) [Mass/Vol]Or dered By: Todd Velasquez on 08-06-2023 MCHC (RBC) [Mass/Vol] 32.4 g/dL 32-36 [facility] No Panel InformationOrdered By: Todd Velasquez on 08-06-2023 Estimated GFR (MDRD) Amer 99 mL/min >60 [facility] Comment on above: GFR Calc Estimated GFR (MDRD) Non-Af Amer 82 mL/min >60 [facility] Comment on above: Non- GFR Calc Valproic Acid (Depakene) Level 102 ug/mL 50-100 [facility] Platelets bldOrdered By: Ignacia Velasquez on 08-06-2023 Platelets (Bld) [#/Vol] 169 10*3/uL 150-450 [facility] Serum or plasma albumin jacob urement (mass/volume)Ordered By: Todd Velasquez on 08-06-2023 Albumin [Mass/Vol] 3.1 g/dL 3.2-5.0 [facility] Serum or plasma albumin/glob ulin mass ratioOrdered By: Todd Velasquez on 08-06-2023 Albumin/Globulin [Mass ratio] 0.9 {ratio} 0.9-2.4 [facility] Serum or plasma calcium jacob urement (mass/volume)Ordered By: Todd Velasquez on 08-06-2023 Calcium [Mass/Vol] 8.9 mg/dL 8.5-10.1 [facility] Serum or plasma creatinine m easurement (mass/volume)Ordered By: Todd Velasquez on 08-06-2023 Creatinine [Mass/Vol] 0.74 mg/dL 0.55-1.02 [facility] Comment on above: The validity of the calculated GFR & GFRAA in patients over 70 years has not been determined. Clinical correlation is essential. Serum or plasma phenytoin me asurement (mass/volume)Ordered By: Todd Velasquez on 08-06-2023 Phenytoin [Mass/Vol] 7.0 mL 10.0-20.0 [facility] Serum or plasma urea nitroge n measurement (mass/volume)Ordered By: Todd Velasquez on 08-06-2023 Urea nitrogen [Mass/Vol] 16 mg/dL 7-18 [facility] Thin prep Papanicolaou smear with manual screeningOrdered By: Todd Velasquez on 08-06-2023 Thin prep Papanicolaou smear with manual screening 16 U/L 15-37 [facility] Thin prep Papanicolaou smear with manual screening 3 5-15 [facility] Absolute lymphocyte countOrd ered By: Todd Velasquez on 05-14-2023 Lymphocytes Auto (Unsp spec) [#/Vol] 2.33 10*3/uL 0.83-4.51 [facility] Basophil percentageOrdered B y: Todd Velasquez on 05-14-2023 Basophils/100 WBC (Bld) 0.9 % 0-1 [facility] Bilirubin [Mass/Vol] 0.30 mg/dL 0.20-1.00 [facility] Comment on above: For patients on eltr ombopag therapy, use of [employer] [place] TBIL is not recommended. Chloride [Moles/Vol] 107 mmol/L 98-107 [facility] Eosinophils/100 WBC (Bld) 2.0 % 0-5 [facility] Glucose [Mass/Vol] 87 mg/dL 74-106 [facility] Neutrophils (Bld) [#/Vol] 3.2 10*3/uL 2.0-7.7 [facility] Neutrophils/100 WBC (Bld) 50.0 % 47-70 [facility] Potassium [Moles/Vol] 4.7 mmol/L 3.5-5.1 [facility] Protein [Mass/Vol] 6.7 g/dL 6.4-8.2 [facility] Sodium [Moles/Vol] 138 mmol/L 136-145 [facility] WBC (Bld) [#/Vol] 6.4 10*3/uL 4.4-11.0 [facility] Blood erythrocytes count (nu mber/volume)Ordered By: Todd Velasquez on 05-14-2023 RBC (Bld) [#/Vol] 3.95 10*6/uL 4.2-5.4 [facility] Blood hemoglobin measurement (mass/volume)Ordered By: Todd Velasquez on 05-14-2023 Hemoglobin (Bld) [Mass/Vol] 12.2 g/dL 12.0-15.0 [facility] Blood lymphocytes/100 leukoc ytesOrdered By: Todd Velasquez on 05-14-2023 Lymphocytes/100 WBC (Bld) 36.5 % 19-41 [facility] Blood monocytes/100 leukocyt esOrdered By: Todd Velasquez on 05-14-2023 Monocytes/100 WBC (Bld) 10.3 % 0-10 [facility] Blood platelet mean volumeOr dered By: Todd Velasquez on 05-14-2023 Platelet mean volume (Bld) [Entitic vol] 12.1 fL 6.2-12.0 [facility] Determination of erythrocyte mean corpuscular volume (MCV)Ordered By: Todd Velasquez on 05-14-2023 MCV (RBC) [Entitic vol] 96.2 fL 81-99 [facility] Hematocrit Auto (Bld) [Volum e fraction]Ordered By: Todd Velasquez on 05-14-2023 Hematocrit (Bld) [Volume fraction] 38.0 % 37-47 [facility] - Chemistry and C hemistry - challengeOrdered By: Todd Velasquez on 05-14-2023 ALP [Catalytic activity/Vol] 111 U/L 45-117 [facility] ALT [Catalytic activity/Vol] 16 U/L 13-56 [facility] CO2 [Moles/Vol] 28.0 mmol/L 21.0-32.0 [facility] Globulin (S) [Mass/Vol] 3.5 g/dL 2.2-4.2 [facility] Urea nitrogen/Creatinine [Mass ratio] 28.6 mg/mg 10-20 [facility] - Hematology and Cell countsOrdered By: Todd Velasquez on 05-14-2023 Erythrocyte distribution width (RBC) [Entitic vol] 46.6 fL 35.1-43.9 [facility] Erythrocyte distribution width (RBC) [Ratio] 13.0 % 11.6-14.6 [facility] Immature granulocytes/100 WBC (Bld) 0.300 % 0.0-0.9 [facility] Comment on above: IG% - Immature Granu locytes (promyelocytes, myelocytes and metamyelocytes) > 1% indicates that a LEFT SHIFT is Present. MCH (RBC) [Entitic mass] 30.9 pg 27.0-32.0 [facility] Nucleated RBC/100 WBC (Bld) [Ratio] 0 % 0-5 [facility] MCHC Auto (RBC) [Mass/Vol]Or dered By: Todd Velasquez on 05-14-2023 MCHC (RBC) [Mass/Vol] 32.1 g/dL 32-36 [facility] No Panel InformationOrdered By: Todd Velasquez on 05-14-2023 Estimated GFR (MDRD) Amer 111 mL/min >60 [facility] Comment on above: GFR Calc Estimated GFR (MDRD) Non-Af Amer 92 mL/min >60 [facility] Comment on above: Non- GFR Calc Valproic Acid (Depakene) Level 62 ug/mL 50-100 [facility] Platelets bldOrdered By: Ignacia Velasquez on 05-14-2023 Platelets (Bld) [#/Vol] 175 10*3/uL 150-450 [facility] Serum or plasma albumin jacob urement (mass/volume)Ordered By: Todd Velasquez on 05-14-2023 Albumin [Mass/Vol] 3.2 g/dL 3.2-5.0 [facility] Serum or plasma albumin/glob ulin mass ratioOrdered By: Todd Velasquez on 05-14-2023 Albumin/Globulin [Mass ratio] 0.9 {ratio} 0.9-2.4 [facility] Serum or plasma calcium jacob urement (mass/volume)Ordered By: Todd Velasquez on 05-14-2023 Calcium [Mass/Vol] 8.8 mg/dL 8.5-10.1 [facility] Serum or plasma creatinine m easurement (mass/volume)Ordered By: Todd Velasquez on 05-14-2023 Creatinine [Mass/Vol] 0.66 mg/dL 0.55-1.02 [facility] Comment on above: The validity of the calculated GFR & GFRAA in patients over 70 years has not been determined. Clinical correlation is essential. Serum or plasma phenytoin me asurement (mass/volume)Ordered By: Todd Velasquez on 05-14-2023 Phenytoin [Mass/Vol] 8.9 mL 10.0-20.0 [facility] Serum or plasma urea nitroge n measurement (mass/volume)Ordered By: Todd Velasquez on 05-14-2023 Urea nitrogen [Mass/Vol] 19 mg/dL 7-18 [facility] Thin prep Papanicolaou smear with manual screeningOrdered By: Todd Velasqeuz on 05-14-2023 Thin prep Papanicolaou smear with manual screening 18 U/L 15-37 [facility] Thin prep Papanicolaou smear with manual screening 3 5-15 [facility] Absolute lymphocyte countOrd ered By: Todd Velasquez on 11-27-2022 Lymphocytes Auto (Unsp spec) [#/Vol] 2.72 10*3/uL 0.83-4.51 [facility] Basophil percentageOrdered B y: Todd Velasquez on 11-27-2022 Basophils/100 WBC (Bld) 0.6 % 0-1 [facility] Bilirubin [Mass/Vol] 0.20 mg/dL 0.20-1.00 [facility] Comment on above: For patients on eltr ombopag therapy, use of [employer] [place] TBIL is not recommended. Chloride [Moles/Vol] 107 mmol/L 98-107 [facility] Eosinophils/100 WBC (Bld) 1.8 % 0-5 [facility] Glucose [Mass/Vol] 84 mg/dL 74-106 [facility] Neutrophils (Bld) [#/Vol] 3.2 10*3/uL 2.0-7.7 [facility] Neutrophils/100 WBC (Bld) 47.4 % 47-70 [facility] Potassium [Moles/Vol] 4.7 mmol/L 3.5-5.1 [facility] Protein [Mass/Vol] 7.5 g/dL 6.4-8.2 [facility] Sodium [Moles/Vol] 139 mmol/L 136-145 [facility] WBC (Bld) [#/Vol] 6.7 10*3/uL 4.4-11.0 [facility] Blood erythrocytes count (nu mber/volume)Ordered By: Todd Velasquez on 11-27-2022 RBC (Bld) [#/Vol] 3.67 10*6/uL 4.2-5.4 [facility] Blood hemoglobin measurement (mass/volume)Ordered By: Todd Velasquez on 11-27-2022 Hemoglobin (Bld) [Mass/Vol] 11.6 g/dL 12.0-15.0 [facility] Blood lymphocytes/100 leukoc ytesOrdered By: Todd Velasquez on 11-27-2022 Lymphocytes/100 WBC (Bld) 40.6 % 19-41 [facility] Blood monocytes/100 leukocyt esOrdered By: Todd Velasquez on 11-27-2022 Monocytes/100 WBC (Bld) 9.3 % 0-10 [facility] Blood platelet mean volumeOr dered By: Todd Velasquez on 11-27-2022 Platelet mean volume (Bld) [Entitic vol] 11.3 fL 6.2-12.0 [facility] Determination of erythrocyte mean corpuscular volume (MCV)Ordered By: Todd Velasquez on 11-27-2022 MCV (RBC) [Entitic vol] 97.3 fL 81-99 [facility] Hematocrit Auto (Bld) [Volum e fraction]Ordered By: Todd Velasquez on 11-27-2022 Hematocrit (Bld) [Volume fraction] 35.7 % 37-47 [facility] - Chemistry and C hemistry - challengeOrdered By: Todd Velasquez on 11-27-2022 ALP [Catalytic activity/Vol] 96 U/L 45-117 [facility] ALT [Catalytic activity/Vol] 14 U/L 13-56 [facility] CO2 [Moles/Vol] 27.0 mmol/L 21.0-32.0 [facility] Globulin (S) [Mass/Vol] 4.8 g/dL 2.2-4.2 [facility] Urea nitrogen/Creatinine [Mass ratio] 32.4 mg/mg 10-20 [facility] - Hematology and Cell countsOrdered By: Todd Velasquez on 11-27-2022 Erythrocyte distribution width (RBC) [Entitic vol] 47.7 fL 35.1-43.9 [facility] Erythrocyte distribution width (RBC) [Ratio] 13.2 % 11.6-14.6 [facility] Immature granulocytes/100 WBC (Bld) 0.300 % 0.0-0.9 [facility] Comment on above: IG% - Immature Granu locytes (promyelocytes, myelocytes and metamyelocytes) > 1% indicates that a LEFT SHIFT is Present. MCH (RBC) [Entitic mass] 31.6 pg 27.0-32.0 [facility] Nucleated RBC/100 WBC (Bld) [Ratio] 0 % 0-5 [facility] MCHC Auto (RBC) [Mass/Vol]Or dered By: Todd Velasquez on 11-27-2022 MCHC (RBC) [Mass/Vol] 32.5 g/dL 32-36 [facility] No Panel InformationOrdered By: Todd Velasquez on 11-27-2022 Estimated GFR (MDRD) Amer 115 mL/min >60 [facility] Comment on above: GFR Calc Estimated GFR (MDRD) Non-Af Amer 95 mL/min >60 [facility] Comment on above: Non- GFR Calc Valproic Acid (Depakene) Level 72 ug/mL 50-100 [facility] Platelets bldOrdered By: Ignacia Velasquez on 11-27-2022 Platelets (Bld) [#/Vol] 187 10*3/uL 150-450 [facility] Serum or plasma albumin jacob urement (mass/volume)Ordered By: Todd Velasquez on 11-27-2022 Albumin [Mass/Vol] 2.7 g/dL 3.2-5.0 [facility] Serum or plasma albumin/glob ulin mass ratioOrdered By: Todd Velasquez on 11-27-2022 Albumin/Globulin [Mass ratio] 0.6 {ratio} 0.9-2.4 [facility] Serum or plasma calcium jacob urement (mass/volume)Ordered By: Todd Velasquez on 11-27-2022 Calcium [Mass/Vol] 9.1 mg/dL 8.5-10.1 [facility] Serum or plasma creatinine m easurement (mass/volume)Ordered By: Todd Velasquez on 11-27-2022 Creatinine [Mass/Vol] 0.65 mg/dL 0.55-1.02 [facility] Comment on above: The validity of the calculated GFR & GFRAA in patients over 70 years has not been determined. Clinical correlation is essential. Serum or plasma phenytoin me asurement (mass/volume)Ordered By: Todd Velasquez on 11-27-2022 Phenytoin [Mass/Vol] 10.5 mL 10.0-20.0 [facility] Serum or plasma urea nitroge n measurement (mass/volume)Ordered By: Todd Velasquez on 11-27-2022 Urea nitrogen [Mass/Vol] 21 mg/dL 7-18 [facility] Thin prep Papanicolaou smear with manual screeningOrdered By: Todd Velasquez on 11-27-2022 Thin prep Papanicolaou smear with manual screening 16 U/L 15-37 [facility] Thin prep Papanicolaou smear with manual screening 5 5-15 [facility] Serum or plasma phenytoin me asurement (mass/volume)Ordered By: Todd Velasquez on 10-30-2022 Phenytoin [Mass/Vol] 9.8 mL 10.0-20.0 [facility] Basophil percentageOrdered B y: Todd Velasquez on 10-24-2022 Bilirubin [Mass/Vol] 0.30 mg/dL 0.20-1.00 [facility] Comment on above: For patients on eltr ombopag therapy, use of [employer] [place] TBIL is not recommended. Chloride [Moles/Vol] 106 mmol/L 98-107 [facility] Glucose [Mass/Vol] 80 mg/dL 74-106 [facility] Potassium [Moles/Vol] 4.0 mmol/L 3.5-5.1 [facility] Protein [Mass/Vol] 6.6 g/dL 6.4-8.2 [facility] Sodium [Moles/Vol] 141 mmol/L 136-145 [facility] WBC (Bld) [#/Vol] 6.5 10*3/uL 4.4-11.0 [facility] Blood erythrocytes count (nu mber/volume)Ordered By: Todd Velasquez on 10-24-2022 RBC (Bld) [#/Vol] 3.82 10*6/uL 4.2-5.4 [facility] Blood hemoglobin measurement (mass/volume)Ordered By: Todd Velasquez on 10-24-2022 Hemoglobin (Bld) [Mass/Vol] 12.4 g/dL 12.0-15.0 [facility] Blood platelet mean volumeOr dered By: Todd Velasquez on 10-24-2022 Platelet mean volume (Bld) [Entitic vol] 11.0 fL 6.2-12.0 [facility] Determination of erythrocyte mean corpuscular volume (MCV)Ordered By: Todd Velasquez on 10-24-2022 MCV (RBC) [Entitic vol] 95.5 fL 81-99 [facility] Hematocrit Auto (Bld) [Volum e fraction]Ordered By: Todd Velasquez on 10-24-2022 Hematocrit (Bld) [Volume fraction] 36.5 % 37-47 [facility] - Chemistry and C hemistry - challengeOrdered By: Todd Velasquez on 10-24-2022 ALP [Catalytic activity/Vol] 92 U/L 45-117 [facility] ALT [Catalytic activity/Vol] 11 U/L 13-56 [facility] CO2 [Moles/Vol] 27.0 mmol/L 21.0-32.0 [facility] Globulin (S) [Mass/Vol] 4.1 g/dL 2.2-4.2 [facility] Urea nitrogen/Creatinine [Mass ratio] 20.3 mg/mg 10-20 [facility] - Hematology and Cell countsOrdered By: Todd Velasquez on 10-24-2022 Erythrocyte distribution width (RBC) [Entitic vol] 43.8 fL 35.1-43.9 [facility] Erythrocyte distribution width (RBC) [Ratio] 12.7 % 11.6-14.6 [facility] MCH (RBC) [Entitic mass] 32.5 pg 27.0-32.0 [facility] MCHC Auto (RBC) [Mass/Vol]Or dered By: Todd Velasquez on 10-24-2022 MCHC (RBC) [Mass/Vol] 34.0 g/dL 32-36 [facility] No Panel InformationOrdered By: Todd Velasquez on 10-24-2022 Estimated GFR (MDRD) Amer 127 mL/min >60 [facility] Comment on above: GFR Calc Estimated GFR (MDRD) Non-Af Amer 105 mL/min >60 [facility] Comment on above: Non- GFR Calc Thyroid Stimulating Hormone (TSH) 3.19 uIU/mL 0.358-3.74 [facility] Valproic Acid (Depakene) Level 103 ug/mL 50-100 [facility] Platelets bldOrdered By: Ignacia Velasquez on 10-24-2022 Platelets (Bld) [#/Vol] 265 10*3/uL 150-450 [facility] Serum or plasma albumin jacob urement (mass/volume)Ordered By: Todd Velasquez on 10-24-2022 Albumin [Mass/Vol] 2.5 g/dL 3.2-5.0 [facility] Serum or plasma albumin/glob ulin mass ratioOrdered By: Todd Velasquez on 10-24-2022 Albumin/Globulin [Mass ratio] 0.6 {ratio} 0.9-2.4 [facility] Serum or plasma calcium jacob urement (mass/volume)Ordered By: Todd Velasquez on 10-24-2022 Calcium [Mass/Vol] 8.7 mg/dL 8.5-10.1 [facility] Serum or plasma creatinine m easurement (mass/volume)Ordered By: Todd Velasquez on 10-24-2022 Creatinine [Mass/Vol] 0.59 mg/dL 0.55-1.02 [facility] Comment on above: The validity of the calculated GFR & GFRAA in patients over 70 years has not been determined. Clinical correlation is essential. Serum or plasma phenytoin me asurement (mass/volume)Ordered By: Todd Velasquez on 10-24-2022 Phenytoin [Mass/Vol] 9.6 mL 10.0-20.0 [facility] Serum or plasma urea nitroge n measurement (mass/volume)Ordered By: Todd Velasquez on 10-24-2022 Urea nitrogen [Mass/Vol] 12 mg/dL 7-18 [facility] Thin prep Papanicolaou smear with manual screeningOrdered By: Todd Velsaquez on 10-24-2022 Thin prep Papanicolaou smear with manual screening 13 U/L 15-37 [facility] Thin prep Papanicolaou smear with manual screening 8 5-15 [facility] Absolute lymphocyte countOrd ered By: Orville Mendoza on 09-04-2022 Lymphocytes Auto (Unsp spec) [#/Vol] 2.50 10*3/uL 0.83-4.51 [facility] Basophil percentageOrdered B y: Orville Mendoza on 09-04-2022 Basophils/100 WBC (Bld) 0.8 % 0-1 [facility] Bilirubin [Mass/Vol] 0.40 mg/dL 0.20-1.00 [facility] Comment on above: For patients on eltr ombopag therapy, use of [employer] [place] TBIL is not recommended. Chloride [Moles/Vol] 110 mmol/L 98-107 [facility] Eosinophils/100 WBC (Bld) 1.9 % 0-5 [facility] Glucose [Mass/Vol] 78 mg/dL 74-106 [facility] Neutrophils (Bld) [#/Vol] 2.9 10*3/uL 2.0-7.7 [facility] Neutrophils/100 WBC (Bld) 46.7 % 47-70 [facility] Potassium [Moles/Vol] 4.8 mmol/L 3.5-5.1 [facility] Protein [Mass/Vol] 6.5 g/dL 6.4-8.2 [facility] Sodium [Moles/Vol] 142 mmol/L 136-145 [facility] WBC (Bld) [#/Vol] 6.3 10*3/uL 4.4-11.0 [facility] Blood erythrocytes count (nu mber/volume)Ordered By: Orville Mendoza on 09-04-2022 RBC (Bld) [#/Vol] 3.96 10*6/uL 4.2-5.4 [facility] Blood hemoglobin measurement (mass/volume)Ordered By: Orville Mendoza on 09-04-2022 Hemoglobin (Bld) [Mass/Vol] 12.7 g/dL 12.0-15.0 [facility] Blood lymphocytes/100 leukoc ytesOrdered By: Orville Mendoza on 09-04-2022 Lymphocytes/100 WBC (Bld) 39.9 % 19-41 [facility] Blood monocytes/100 leukocyt esOrdered By: Orville Mendoza on 09-04-2022 Monocytes/100 WBC (Bld) 10.4 % 0-10 [facility] Blood platelet mean volumeOr dered By: Orville Mendoza on 09-04-2022 Platelet mean volume (Bld) [Entitic vol] 11.6 fL 6.2-12.0 [facility] Determination of erythrocyte mean corpuscular volume (MCV)Ordered By: Orville Mendoza on 09-04-2022 MCV (RBC) [Entitic vol] 96.0 fL 81-99 [facility] Hematocrit Auto (Bld) [Volum e fraction]Ordered By: Orville Mendoza on 09-04-2022 Hematocrit (Bld) [Volume fraction] 38.0 % 37-47 [facility] Laboratory - Chemistry and C hemistry - challengeOrdered By: Orville Mendoza on 09-04-2022 ALP [Catalytic activity/Vol] 108 U/L 45-117 [facility] ALT [Catalytic activity/Vol] 12 U/L 13-56 [facility] CO2 [Moles/Vol] 26.0 mmol/L 21.0-32.0 [facility] Globulin (S) [Mass/Vol] 3.6 g/dL 2.2-4.2 [facility] Urea nitrogen/Creatinine [Mass ratio] 25.3 mg/mg 10-20 [facility] - Hematology and Cell countsOrdered By: Orville Mendoza on 09-04-2022 Erythrocyte distribution width (RBC) [Entitic vol] 45.3 fL 35.1-43.9 [facility] Erythrocyte distribution width (RBC) [Ratio] 12.7 % 11.6-14.6 [facility] Immature granulocytes/100 WBC (Bld) 0.300 % 0.0-0.9 [facility] Comment on above: IG% - Immature Granu locytes (promyelocytes, myelocytes and metamyelocytes) > 1% indicates that a LEFT SHIFT is Present. MCH (RBC) [Entitic mass] 32.1 pg 27.0-32.0 [facility] Nucleated RBC/100 WBC (Bld) [Ratio] 0 % 0-5 [facility] MCHC Auto (RBC) [Mass/Vol]Or dered By: Orville Mendoza on 09-04-2022 MCHC (RBC) [Mass/Vol] 33.4 g/dL 32-36 [facility] No Panel InformationOrdered By: Orville Mendoza on 09-04-2022 Estimated GFR (MDRD) Amer 138 mL/min >60 [facility] Comment on above: GFR Calc Estimated GFR (MDRD) Non-Af Amer 114 mL/min >60 [facility] Comment on above: Non- GFR Calc Valproic Acid (Depakene) Level 62 ug/mL 50-100 [facility] Platelets bldOrdered By: Russ Mendoza on 09-04-2022 Platelets (Bld) [#/Vol] 180 10*3/uL 150-450 [facility] Serum or plasma albumin jacob urement (mass/volume)Ordered By: Orville Mendoza on 09-04-2022 Albumin [Mass/Vol] 2.9 g/dL 3.2-5.0 [facility] Serum or plasma albumin/glob ulin mass ratioOrdered By: Orville Mendoza on 09-04-2022 Albumin/Globulin [Mass ratio] 0.8 {ratio} 0.9-2.4 [facility] Serum or plasma calcium jacob urement (mass/volume)Ordered By: Orville Mendoza on 09-04-2022 Calcium [Mass/Vol] 9.0 mg/dL 8.5-10.1 [facility] Serum or plasma creatinine m easurement (mass/volume)Ordered By: Orville Mendoza on 09-04-2022 Creatinine [Mass/Vol] 0.55 mg/dL 0.55-1.02 [facility] Comment on above: The validity of the calculated GFR & GFRAA in patients over 70 years has not been determined. Clinical correlation is essential. Serum or plasma phenytoin me asurement (mass/volume)Ordered By: Orville Mendoza on 09-04-2022 Phenytoin [Mass/Vol] 11.7 mL 10.0-20.0 [facility] Serum or plasma urea nitroge n measurement (mass/volume)Ordered By: Orville Mendoza on 09-04-2022 Urea nitrogen [Mass/Vol] 14 mg/dL 7-18 [facility] Thin prep Papanicolaou smear with manual screeningOrdered By: Orville Mendoza on 09-04-2022 Thin prep Papanicolaou smear with manual screening 16 U/L 15-37 [facility] Thin prep Papanicolaou smear with manual screening 6 5-15 [facility] Absolute lymphocyte counton 06-12-2022 Lymphocytes Auto (Unsp spec) [#/Vol] 2.92 10*3/uL 0.83-4.51 [facility] Work Phone: [phone] Basophil percentageon 2021 Basophils/100 WBC (Bld) 0.7 % 0-1 [facility] Work Phone: Bilirubin [Mass/Vol] 0.40 mg/dL 0.20-1.00 [facility] Work Phone: Comment on above: For patients on eltr ombopag therapy, use of [employer] [place] TBIL is not recommended. Chloride [Moles/Vol] 108 mmol/L 98-107 [facility] Work Phone: Eosinophils/100 WBC (Bld) 1.7 % 0-5 [facility] Work Phone: Glucose [Mass/Vol] 77 mg/dL 74-106 [facility] Work Phone: Neutrophils (Bld) [#/Vol] 3.4 10*3/uL 2.0-7.7 [facility] Work Phone: Neutrophils/100 WBC (Bld) 46.5 % 47-70 [facility] Work Phone: Potassium [Moles/Vol] 4.7 mmol/L 3.5-5.1 [facility] Work Phone: Protein [Mass/Vol] 6.5 g/dL 6.4-[facility]: Sodium [Moles/Vol] 141 mmol/L 136-145 [facility] Work Phone: WBC (Bld) [#/Vol] 7.3 10*3/uL 4.4-11.0 [facility] Work Phone: Blood erythrocytes count (nu mber/volume)on 06-12-2022 RBC (Bld) [#/Vol] 3.84 10*6/uL 4.2-5.4 [facility] Work Phone: Blood hemoglobin measurement (mass/volume)on 06-12-2022 Hemoglobin (Bld) [Mass/Vol] 12.5 g/dL 12.0-15.0 [facility] Work Phone: Blood lymphocytes/100 leukoc yteson 06-12-2022 Lymphocytes/100 WBC (Bld) 40.3 % 19-41 [facility] Work Phone: [phone] Blood monocytes/100 leukocyt eson 06-12-2022 Monocytes/100 WBC (Bld) 10.5 % 0-10 [facility] Work Phone: Blood platelet mean volumeon 06-12-2022 Platelet mean volume (Bld) [Entitic vol] 12.2 fL 6.2-12.0 [facility] Work Phone: Determination of erythrocyte mean corpuscular volume (MCV)on 06-12-2022 MCV (RBC) [Entitic vol] 96.9 fL 81-99 [facility] Work Phone: Hematocrit Auto (Bld) [Volum e fraction]on 06-12-2022 Hematocrit (Bld) [Volume fraction] 37.2 % 37-47 [facility] Work Phone: Laboratory - Chemistry and C hemistry - challengeon 06-12-2022 ALP [Catalytic activity/Vol] 81 U/L 45-117 [facility] Work Phone: ALT [Catalytic activity/Vol] 18 U/L 13-56 [facility] Work Phone: CO2 [Moles/Vol] 28.0 mmol/L 21.0-32.0 [facility] Work Phone: Globulin (S) [Mass/Vol] 3.6 g/dL 2.2-4.2 [facility] Work Phone: Urea nitrogen/Creatinine [Mass ratio] 32.4 mg/mg 10-20 [facility] Work Phone: Laboratory - Hematology and Cell countson 06-12-2022 Erythrocyte distribution width (RBC) [Entitic vol] 45.7 fL 35.1-43.9 [facility] Work Phone: Erythrocyte distribution width (RBC) [Ratio] 12.8 % 11.6-14.6 [facility] Work Phone: Immature granulocytes/100 WBC (Bld) 0.300 % 0.0-0.9 [facility] Work Phone: Comment on above: IG% - Immature Granu locytes (promyelocytes, myelocytes and metamyelocytes) > 1% indicates that a LEFT SHIFT is Present. MCH (RBC) [Entitic mass] 32.6 pg 27.0-32.0 [facility] Work Phone: Nucleated RBC/100 WBC (Bld) [Ratio] 0 % 0-5 [facility] Work Phone: MCHC Auto (RBC) [Mass/Vol]on 06-12-2022 MCHC (RBC) [Mass/Vol] 33.6 g/dL 32-36 [facility] Work Phone: No Panel Informationon 06-12 Estimated GFR (MDRD) Amer 103 mL/min >60 [facility] Work Phone: Comment on above: GFR Calc Estimated GFR (MDRD) Non-Af Amer 85 mL/min >60 [facility] Work Phone: Comment on above: Non- GFR Calc Valproic Acid (Depakene) Level 102 ug/mL 50-100 [facility] Work Phone: Platelets bldon 06-12-2022 Platelets (Bld) [#/Vol] 155 10*3/uL 150-450 [facility] Work Phone: Serum or plasma albumin jacob urement (mass/volume)on 06-12-2022 Albumin [Mass/Vol] 2.9 g/dL 3.2-5.0 [facility] Work Phone: Serum or plasma albumin/glob ulin mass ratioon 06-12-2022 Albumin/Globulin [Mass ratio] 0.8 {ratio} 0.9-2.4 [facility] Work Phone: Serum or plasma calcium jacob urement (mass/volume)on 06-12-2022 Calcium [Mass/Vol] 8.9 mg/dL 8.5-10.1 [facility] Work Phone: Serum or plasma creatinine m easurement (mass/volume)on 06-12-2022 Creatinine [Mass/Vol] 0.71 mg/dL 0.55-1.02 [facility] Work Phone: Comment on above: The validity of the calculated GFR & GFRAA in patients over 70 years has not been determined. Clinical correlation is essential. Serum or plasma phenytoin me asurement (mass/volume)on 06-12-2022 Phenytoin [Mass/Vol] 13.3 mL 10.0-20.0 [facility] Work Phone: Serum or plasma urea nitroge n measurement (mass/volume)on 06-12-2022 Urea nitrogen [Mass/Vol] 23 mg/dL 7-18 [facility] Work Phone: Thin prep Papanicolaou smear with manual screeningon 06-12-2022 Thin prep Papanicolaou smear with manual screening 17 U/L 15-37 [facility] Work Phone: Thin prep Papanicolaou smear with manual screening 5 5-15 [facility] Work Phone: Absolute lymphocyte counton 03-20-2022 Lymphocytes Auto (Unsp spec) [#/Vol] 2.29 10*3/uL 0.83-4.51 [facility] Work Phone: Basophil percentageon 2021 Basophils/100 WBC (Bld) 0.9 % 0-1 [facility] Work Phone: Bilirubin [Mass/Vol] 0.30 mg/dL 0.20-1.00 [facility] Work Phone: Comment on above: For patients on eltr ombopag therapy, use of [employer] [place] TBIL is not recommended. Chloride [Moles/Vol] 106 mmol/L 98-107 [facility] Work Phone: [phone] Eosinophils/100 WBC (Bld) 1.5 % 0-5 [facility] Work Phone: Glucose [Mass/Vol] 80 mg/dL 74-106 [facility] Work Phone: Neutrophils (Bld) [#/Vol] 3.4 10*3/uL 2.0-7.7 [facility] Work Phone: [phone] Neutrophils/100 WBC (Bld) 51.9 % 47-70 [facility] Work Phone: Potassium [Moles/Vol] 4.2 mmol/L 3.5-5.1 [facility] Work Phone: Protein [Mass/Vol] 6.4 g/dL 6.4-8.2 [facility] Work Phone: Sodium [Moles/Vol] 140 mmol/L 136-145 [facility] Work Phone: WBC (Bld) [#/Vol] 6.5 10*3/uL 4.4-11.0 [facility] Work Phone: Blood erythrocytes count (nu mber/volume)on 03-20-2022 RBC (Bld) [#/Vol] 3.89 10*6/uL 4.2-5.4 [facility] Work Phone: Blood hemoglobin measurement (mass/volume)on 03-20-2022 Hemoglobin (Bld) [Mass/Vol] 12.5 g/dL 12.0-15.0 [facility] Work Phone: Blood lymphocytes/100 leukoc yteson 03-20-2022 Lymphocytes/100 WBC (Bld) 35.1 % 19-41 [facility] Work Phone: Blood monocytes/100 leukocyt eson 03-20-2022 Monocytes/100 WBC (Bld) 10.1 % 0-10 [facility] Work Phone: Blood platelet mean volumeon 03-20-2022 Platelet mean volume (Bld) [Entitic vol] 11.9 fL 6.2-12.0 [facility] Work Phone: Determination of erythrocyte mean corpuscular volume (MCV)on 03-20-2022 MCV (RBC) [Entitic vol] 97.4 fL 81-99 [facility] Work Phone: Hematocrit Auto (Bld) [Volum e fraction]on 03-20-2022 Hematocrit (Bld) [Volume fraction] 37.9 % 37-47 [facility] Work Phone: Laboratory - Chemistry and C hemistry - challengeon 03-20-2022 ALP [Catalytic activity/Vol] 79 U/L 45-117 [facility] Work Phone: ALT [Catalytic activity/Vol] 16 U/L 13-56 [facility] Work Phone: CO2 [Moles/Vol] 27.0 mmol/L 21.0-32.0 [facility] Work Phone: Globulin (S) [Mass/Vol] 3.4 g/dL 2.2-4.2 [facility] Work Phone: Urea nitrogen/Creatinine [Mass ratio] 25.4 mg/mg 10-20 [facility] Work Phone: Laboratory - Hematology and Cell countson 03-20-2022 Erythrocyte distribution width (RBC) [Entitic vol] 45.1 fL 35.1-43.9 [facility] Work Phone: Erythrocyte distribution width (RBC) [Ratio] 12.6 % 11.6-14.6 [facility] Work Phone: Immature granulocytes/100 WBC (Bld) 0.500 % 0.0-0.9 [facility] Work Phone: Comment on above: IG% - Immature Granu locytes (promyelocytes, myelocytes and metamyelocytes) > 1% indicates that a LEFT SHIFT is Present. MCH (RBC) [Entitic mass] 32.1 pg 27.0-32.0 [facility] Work Phone: Nucleated RBC/100 WBC (Bld) [Ratio] 0 % 0-5 [facility] Work Phone: MCHC Auto (RBC) [Mass/Vol]on 03-20-2022 MCHC (RBC) [Mass/Vol] 33.0 g/dL 32-36 [facility] Work Phone: No Panel Informationon 03-20 Estimated GFR (MDRD) Amer 111 mL/min >60 [facility] Work Phone: Comment on above: GFR Calc Estimated GFR (MDRD) Non-Af Amer 91 mL/min >60 [facility] Work Phone: Comment on above: Non- GFR Calc Valproic Acid (Depakene) Level 134 ug/mL 50-100 [facility] Work Phone: Platelets bldon 03-20-2022 Platelets (Bld) [#/Vol] 173 10*3/uL 150-450 [facility] Work Phone: Serum or plasma albumin jacob urement (mass/volume)on 03-20-2022 Albumin [Mass/Vol] 3.0 g/dL 3.2-5.0 [facility] Work Phone: Serum or plasma albumin/glob ulin mass ratioon 03-20-2022 Albumin/Globulin [Mass ratio] 0.9 {ratio} 0.9-2.4 [facility] Work Phone: Serum or plasma calcium jacob urement (mass/volume)on 03-20-2022 Calcium [Mass/Vol] 9.1 mg/dL 8.5-10.1 [facility] Work Phone: Serum or plasma creatinine m easurement (mass/volume)on 03-20-2022 Creatinine [Mass/Vol] 0.67 mg/dL 0.55-1.02 [facility] Work Phone: Comment on above: The validity of the calculated GFR & GFRAA in patients over 70 years has not been determined. Clinical correlation is essential. Serum or plasma phenytoin me asurement (mass/volume)on 03-20-2022 Phenytoin [Mass/Vol] 12.7 mL 10.0-20.0 [facility] Work Phone: Serum or plasma urea nitroge n measurement (mass/volume)on 03-20-2022 Urea nitrogen [Mass/Vol] 17 mg/dL 7-18 [facility] Work Phone: Thin prep Papanicolaou smear with manual screeningon 03-20-2022 Thin prep Papanicolaou smear with manual screening 20 U/L 15-37 [facility] Work Phone: Thin prep Papanicolaou smear with manual screening 7 5-15 [facility] Work Phone: Absolute lymphocyte counton 12-26-2021 Lymphocytes Auto (Unsp spec) [#/Vol] 2.25 10*3/uL 0.83-4.51 [facility] Work Phone: Basophil percentageon 2021 Basophils/100 WBC (Bld) 0.6 % 0-1 [facility] Work Phone: Bilirubin [Mass/Vol] 0.40 mg/dL 0.20-1.00 [facility] Work Phone: Comment on above: For patients on eltr ombopag therapy, use of [employer] [place] TBIL is not recommended. Chloride [Moles/Vol] 107 mmol/L 98-107 [facility] Work Phone: Eosinophils/100 WBC (Bld) 1.3 % 0-5 [facility] Work Phone: Glucose [Mass/Vol] 79 mg/dL 74-106 [facility] Work Phone: Neutrophils (Bld) [#/Vol] 3.2 10*3/uL 2.0-7.7 [facility] Work Phone: [phone] Neutrophils/100 WBC (Bld) 50.0 % 47-70 [facility] Work Phone: [phone] Potassium [Moles/Vol] 4.3 mmol/L 3.5-5.1 [facility] Work Phone: Protein [Mass/Vol] 6.1 g/dL 6.4-8.2 [facility] Work Phone: Sodium [Moles/Vol] 140 mmol/L 136-145 [facility] Work Phone: WBC (Bld) [#/Vol] 6.4 10*3/uL 4.4-11.0 [facility] Work Phone: [phone] Blood erythrocytes count (nu mber/volume)on 12-26-2021 RBC (Bld) [#/Vol] 3.63 10*6/uL 4.2-5.4 [facility] Work Phone: Blood hemoglobin measurement (mass/volume)on 12-26-2021 Hemoglobin (Bld) [Mass/Vol] 12.3 g/dL 12.0-15.0 [facility] Work Phone: [phone] Blood lymphocytes/100 leukoc yteson 12-26-2021 Lymphocytes/100 WBC (Bld) 35.4 % 19-41 [facility] Work Phone: Blood monocytes/100 leukocyt eson 12-26-2021 Monocytes/100 WBC (Bld) 12.4 % 0-10 [facility] Work Phone: Blood platelet mean volumeon 12-26-2021 Platelet mean volume (Bld) [Entitic vol] 11.6 fL 6.2-12.0 [facility] Work Phone: Determination of erythrocyte mean corpuscular volume (MCV)on 12-26-2021 MCV (RBC) [Entitic vol] 98.1 fL 81-99 [facility] Work Phone: Hematocrit Auto (Bld) [Volum e fraction]on 12-26-2021 Hematocrit (Bld) [Volume fraction] 35.6 % 37-47 [facility] Work Phone: Laboratory - Chemistry and C hemistry - challengeon 12-26-2021 ALP [Catalytic activity/Vol] 75 U/L 45-117 [facility] Work Phone: ALT [Catalytic activity/Vol] 12 U/L 13-56 [facility] Work Phone: CO2 [Moles/Vol] 28.0 mmol/L 21.0-32.0 [facility] Work Phone: Globulin (S) [Mass/Vol] 3.1 g/dL 2.2-4.2 [facility] Work Phone: Urea nitrogen/Creatinine [Mass ratio] 26.0 mg/mg 10-20 [facility] Work Phone: Laboratory - Hematology and Cell countson 12-26-2021 Erythrocyte distribution width (RBC) [Entitic vol] 44.0 fL 35.1-43.9 [facility] Work Phone: Erythrocyte distribution width (RBC) [Ratio] 12.0 % 11.6-14.6 [facility] Work Phone: Immature granulocytes/100 WBC (Bld) 0.300 % 0.0-0.9 [facility] Work Phone: Comment on above: IG% - Immature Granu locytes (promyelocytes, myelocytes and metamyelocytes) > 1% indicates that a LEFT SHIFT is Present. MCH (RBC) [Entitic mass] 33.9 pg 27.0-32.0 [facility] Work Phone: Nucleated RBC/100 WBC (Bld) [Ratio] 0 % 0-5 [facility] Work Phone: MCHC Auto (RBC) [Mass/Vol]on 12-26-2021 MCHC (RBC) [Mass/Vol] 34.6 g/dL 32-36 [facility] Work Phone: No Panel Informationon 12-26 Estimated GFR (MDRD) Amer 107 mL/min >60 [facility] Work Phone: Comment on above: GFR Calc Estimated GFR (MDRD) Non-Af Amer 88 mL/min >60 [facility] Work Phone: Comment on above: Non- GFR Calc Valproic Acid (Depakene) Level 101 ug/mL 50-100 [facility] Work Phone: Platelets bldon 12-26-2021 Platelets (Bld) [#/Vol] 170 10*3/uL 150-450 [facility] Work Phone: Serum or plasma albumin jacob urement (mass/volume)on 12-26-2021 Albumin [Mass/Vol] 3.0 g/dL 3.2-5.0 [facility] Work Phone: Serum or plasma albumin/glob ulin mass ratioon 12-26-2021 Albumin/Globulin [Mass ratio] 1.0 {ratio} 0.9-2.4 [facility] Work Phone: Serum or plasma calcium jacob urement (mass/volume)on 12-26-2021 Calcium [Mass/Vol] 9.0 mg/dL 8.5-10.1 [facility] Work Phone: Serum or plasma creatinine m easurement (mass/volume)on 12-26-2021 Creatinine [Mass/Vol] 0.69 mg/dL 0.55-1.02 [facility] Work Phone: Comment on above: The validity of the calculated GFR & GFRAA in patients over 70 years has not been determined. Clinical correlation is essential. Serum or plasma phenytoin me asurement (mass/volume)on 12-26-2021 Phenytoin [Mass/Vol] 10.5 mL 10.0-20.0 [facility] Work Phone: Serum or plasma urea nitroge n measurement (mass/volume)on 12-26-2021 Urea nitrogen [Mass/Vol] 18 mg/dL 7-18 [facility] Work Phone: Thin prep Papanicolaou smear with manual screeningon 12-26-2021 Thin prep Papanicolaou smear with manual screening 19 U/L 15-37 [facility] Work Phone: Thin prep Papanicolaou smear with manual screening 5 5-15 [facility] Work Phone: Absolute lymphocyte counton 12-21-2021 Lymphocytes Auto (Unsp spec) [#/Vol] 2.13 10*3/uL 0.83-4.51 [facility] Work Phone: Basophil percentageon 2021 Basophils/100 WBC (Bld) 0.7 % 0-1 [facility] Work Phone: Bilirubin [Mass/Vol] 0.40 mg/dL 0.20-1.00 [facility] Work Phone: Comment on above: For patients on eltr ombopag therapy, use of [employer] [place] TBIL is not recommended. Chloride [Moles/Vol] 106 mmol/L 98-107 [facility] Work Phone: Eosinophils/100 WBC (Bld) 1.1 % 0-5 [facility] Work Phone: Glucose [Mass/Vol] 73 mg/dL 74-106 [facility] Work Phone: Neutrophils (Bld) [#/Vol] 2.7 10*3/uL 2.0-7.7 [facility] Work Phone: Neutrophils/100 WBC (Bld) 48.2 % 47-70 [facility] Work Phone: Potassium [Moles/Vol] 4.2 mmol/L 3.5-5.1 [facility] Work Phone: Protein [Mass/Vol] 6.0 g/dL 6.4-8.2 [facility] Work Phone: Sodium [Moles/Vol] 140 mmol/L 136-145 [facility] Work Phone: WBC (Bld) [#/Vol] 5.6 10*3/uL 4.4-11.0 [facility] Work Phone: Blood erythrocytes count (nu mber/volume)on 12-21-2021 RBC (Bld) [#/Vol] 3.59 10*6/uL 4.2-5.4 [facility] Work [facility]: Blood hemoglobin measurement (mass/volume)on 12-21-2021 Hemoglobin (Bld) [Mass/Vol] 11.7 g/dL 12.0-15.0 [facility] Work Phone: Blood lymphocytes/100 leukoc yteson 12-21-2021 Lymphocytes/100 WBC (Bld) 37.9 % 19-41 [facility] Work Phone: Blood monocytes/100 leukocyt eson 12-21-2021 Monocytes/100 WBC (Bld) 11.7 % 0-10 [facility] Work Phone: Blood platelet mean volumeon 12-21-2021 Platelet mean volume (Bld) [Entitic vol] 11.5 fL 6.2-12.0 [facility] Work Phone: [phone] Determination of erythrocyte mean corpuscular volume (MCV)on 12-21-2021 MCV (RBC) [Entitic vol] 97.5 fL 81-99 [facility] Work Phone: Hematocrit Auto (Bld) [Volum e fraction]on 12-21-2021 Hematocrit (Bld) [Volume fraction] 35.0 % 37-47 [facility] Work Phone: Laboratory - Chemistry and C hemistry - challengeon 12-21-2021 ALP [Catalytic activity/Vol] 65 U/L 45-117 [facility] Work Phone: [phone] ALT [Catalytic activity/Vol] 13 U/L 13-56 [facility] Work Phone: CO2 [Moles/Vol] 28.0 mmol/L 21.0-32.0 [facility] Work Phone: Globulin (S) [Mass/Vol] 3.2 g/dL 2.2-4.2 [facility] Work Phone: Urea nitrogen/Creatinine [Mass ratio] 17.9 mg/mg 10-20 [facility] Work Phone: Laboratory - Hematology and Cell countson 12-21-2021 Erythrocyte distribution width (RBC) [Entitic vol] 43.6 fL 35.1-43.9 [facility] Work Phone: Erythrocyte distribution width (RBC) [Ratio] 12.0 % 11.6-14.6 [facility] Work Phone: [phone] Immature granulocytes/100 WBC (Bld) 0.400 % 0.0-0.9 [facility] Work Phone: Comment on above: IG% - Immature Granu locytes (promyelocytes, myelocytes and metamyelocytes) > 1% indicates that a LEFT SHIFT is Present. MCH (RBC) [Entitic mass] 32.6 pg 27.0-32.0 [facility] Work Phone: Nucleated RBC/100 WBC (Bld) [Ratio] 0 % 0-5 [facility] Work Phone: [phone] MCHC Auto (RBC) [Mass/Vol]on 12-21-2021 MCHC (RBC) [Mass/Vol] 33.4 g/dL 32-36 [facility] Work [facility]: No Panel Informationon 12-21 Estimated GFR (MDRD) Amer 111 mL/min >60 [facility] Work Phone: Comment on above: GFR Calc Estimated GFR (MDRD) Non-Af Amer 91 mL/min >60 [facility] Work Phone: Comment on above: Non- GFR Calc Miscellaneous Test See comment [facility] Work Phone: Comment on above: TEST RESULT UNITS RE F INTERVALEthosuximide(Zarontin),Serum 53 ug/mL 40-100 Detection Limit = 10 TESTING PERFORMED AT [facility]. ORIGINAL REPORT ON FILE IN LAB CONTAINS ADDITIONAL TEST SITE INFORMATION. Platelets bldon 12-21-2021 Platelets (Bld) [#/Vol] 169 10*3/uL 150-450 [facility] Work Phone: Serum or plasma albumin jacob urement (mass/volume)on 12-21-2021 Albumin [Mass/Vol] 2.8 g/dL 3.2-5.0 [facility] Work Phone: Serum or plasma albumin/glob ulin mass ratioon 12-21-2021 Albumin/Globulin [Mass ratio] 0.9 {ratio} 0.9-2.4 [facility] Work Phone: Serum or plasma calcium jacob urement (mass/volume)on 12-21-2021 Calcium [Mass/Vol] 8.9 mg/dL 8.5-10.1 [facility] Work Phone: Serum or plasma creatinine m easurement (mass/volume)on 12-21-2021 Creatinine [Mass/Vol] 0.67 mg/dL 0.55-1.02 [facility] Work Phone: Comment on above: The validity of the calculated GFR & GFRAA in patients over 70 years has not been determined. Clinical correlation is essential. Serum or plasma phenytoin me asurement (mass/volume)on 12-21-2021 Phenytoin [Mass/Vol] 10.7 mL 10.0-20.0 [facility] Work Phone: Serum or plasma urea nitroge n measurement (mass/volume)on 12-21-2021 Urea nitrogen [Mass/Vol] 12 mg/dL 7-18 [facility] Work Phone: Thin prep Papanicolaou smear with manual screeningon 12-21-2021 Thin prep Papanicolaou smear with manual screening 17 U/L 15-37 [facility] Work Phone: Thin prep Papanicolaou smear with manual screening 6 5-15 [facility] Work Phone: No Panel Informationon 11-23 Thyroid Stimulating Hormone (TSH) 2.89 uIU/mL 0.358-3.74 [facility] Work Phone: No Panel Informationon 10-26 Valproic Acid (Depakene) Level 76 ug/mL 50-100 [facility] Work Phone: Serum or plasma phenytoin me asurement (mass/volume)on 10-26-2021 Phenytoin [Mass/Vol] 14.0 mL 10.0-20.0 [facility] Work Phone: Absolute lymphocyte counton 10-03-2021 Lymphocytes Auto (Unsp spec) [#/Vol] 3.18 10*3/uL 0.83-4.51 [facility] Work Phone: Basophil percentageon 2020 Bilirubin [Mass/Vol] 0.40 mg/dL 0.20-1.00 [facility] Work Phone: Comment on above: For patients on eltr ombopag therapy, use of [place] TBIL is not recommended. Chloride [Moles/Vol] 106 mmol/L 98-107 [facility] Work Phone: Eosinophils/100 WBC (Bld) 1.7 % 0-5 [facility] Work Phone: Glucose [Mass/Vol] 73 mg/dL 74-106 [facility] Work Phone: [phone] Comment on above: Please note revised GLUCOSE reference range effective 2017. Neutrophils (Bld) [#/Vol] 2.4 10*3/uL 2.0-7.7 [facility] Work Phone: Potassium [Moles/Vol] 4.1 mmol/L 3.5-5.1 [facility] Work Phone: Protein [Mass/Vol] 6.4 g/dL 6.4-8.2 [facility] Work Phone: Sodium [Moles/Vol] 140 mmol/L 136-145 [facility] Work Phone: WBC (Bld) [#/Vol] 6.4 10*3/uL 4.4-11.0 [facility] Work Phone: Blood erythrocytes count (nu mber/volume)on 10-03-2021 RBC (Bld) [#/Vol] 3.71 10*6/uL 4.2-5.4 [facility] Work Phone: Blood hemoglobin measurement (mass/volume)on 10-03-2021 Hemoglobin (Bld) [Mass/Vol] 12.5 g/dL 12.0-15.0 [facility] Work Phone: Blood lymphocytes/100 leukoc yteson 10-03-2021 Lymphocytes/100 WBC (Bld) 49.5 % 19-41 [facility] Work Phone: Blood monocytes/100 leukocyt eson 10-03-2021 Monocytes/100 WBC (Bld) 11.0 % 0-10 [facility] Work Phone: Blood platelet mean volumeon 10-03-2021 Platelet mean volume (Bld) [Entitic vol] 12.0 fL 6.2-12.0 [facility] Work Phone: Determination of erythrocyte mean corpuscular volume (MCV)on 10-03-2021 MCV (RBC) [Entitic vol] 97.0 fL 81-99 [facility] Work Phone: Hematocrit Auto (Bld) [Volum e fraction]on 10-03-2021 Hematocrit (Bld) [Volume fraction] 36.0 % 37-47 [facility] Work Phone: Laboratory - Chemistry and C hemistry - challengeon 10-03-2021 ALP [Catalytic activity/Vol] 80 U/L 45-117 [facility] Work Phone: ALT [Catalytic activity/Vol] 21 U/L 13-56 [facility] Work Phone: CO2 [Moles/Vol] 28.0 mmol/L 21.0-32.0 [facility] Work Phone: Globulin (S) [Mass/Vol] 3.4 g/dL 2.2-4.2 [facility] Work Phone: Urea nitrogen/Creatinine [Mass ratio] 19.7 mg/mg - [facility] Work Phone: Laboratory - Hematology and Cell countson 10-03-2021 Basophils/100 WBC (Unsp spec) 0.6 % 0-1 [facility] Work Phone: Erythrocyte distribution width (RBC) [Entitic vol] 46.0 fL 35.1-43.9 [facility] Work Phone: Erythrocyte distribution width (RBC) [Ratio] 12.7 % 11.6-14.6 [facility] Work Phone: Immature granulocytes/100 WBC (Bld) 0.300 % 0.0-0.9 [facility] Work Phone: Comment on above: IG% - Immature Granu locytes (promyelocytes, myelocytes and metamyelocytes) > 1% indicates that a LEFT SHIFT is Present. MCH (RBC) [Entitic mass] 33.7 pg 27.0-32.0 [facility] Work Phone: Neutrophils/100 WBC (Bld) 36.9 % 47-70 [facility] Work Phone: Nucleated RBC/100 WBC (Bld) [Ratio] 0 % 0-5 [facility] Work Phone: MCHC Auto (RBC) [Mass/Vol]on 10-03-2021 MCHC (RBC) [Mass/Vol] 34.7 g/dL 32-36 [facility] Work Phone: No Panel Informationon 10-03 Estimated GFR (MDRD) Amer 95 mL/min >60 [facility] Work Phone: Comment on above: GFR Calc Estimated GFR (MDRD) Non-Af Amer 79 mL/min >60 [facility] Work Phone: Comment on above: Non- GFR Calc Valproic Acid (Depakene) Level 90 ug/mL 50-100 [facility] Work Phone: Platelets bldon 10-03-2021 Platelets (Bld) [#/Vol] 160 10*3/uL 150-450 [facility] Work Phone: Serum or plasma albumin jacob urement (mass/volume)on 10-03-2021 Albumin [Mass/Vol] 3.0 g/dL 3.2-5.0 [facility] Work Phone: Serum or plasma albumin/glob ulin mass ratioon 10-03-2021 Albumin/Globulin [Mass ratio] 0.9 {ratio} 0.9-2.4 [facility] Work Phone: Serum or plasma calcium jacob urement (mass/volume)on 10-03-2021 Calcium [Mass/Vol] 8.7 mg/dL 8.5-10.1 [facility] Work Phone: Serum or plasma creatinine m easurement (mass/volume)on 10-03-2021 Creatinine [Mass/Vol] 0.76 mg/dL 0.55-1.02 [facility] Work Phone: Comment on above: The validity of the calculated GFR & GFRAA in patients over 70 years has not been determined. Clinical correlation is essential. Serum or plasma phenytoin me asurement (mass/volume)on 10-03-2021 Phenytoin [Mass/Vol] 14.5 mL 10.0-20.0 [facility] Work Phone: Serum or plasma urea nitroge n measurement (mass/volume)on 10-03-2021 Urea nitrogen [Mass/Vol] 15 mg/dL 7-18 [facility] Work Phone: Thin prep Papanicolaou smear with manual screeningon 10-03-2021 Thin prep Papanicolaou smear with manual screening 19 U/L 15-37 [facility] Work Phone: Thin prep Papanicolaou smear with manual screening 6 5-15 [facility] Work Phone: RF Swallowing Function w/ Vi denoe 01-22-2019 RF Swallowing Function w/ Video Patient Name: KATHERYN CHINO Fluoroscopy Exam Date/Time 01/22/2019 13:50:00 EDT Exam RF Swallowing Function w/ Video Ordering Physician DO MENDOZA EUGENE F. Accession Number [id number] [facility] Codes 75154 () Reason For Exam Dysphagia Report CLINICAL [...] HARLAN Transcribed Date and Time: 01/22/2019 4:28 [facility] HEAD CHARGER Modified Barium Swallow Studyon 01-22-2019 HEAD CHARGER Modified Barium Swallow Study Patient Name: KATHERYN CHINO Fluoroscopy Exam Date/Time 01/22/2019 13:50:00 EDT Exam HEAD CHARGER Modified Barium Swallow Study Ordering Physician DO MENDOZA EUGENE F. Accession Number [id number] Reason For Exam Dysphagia, oropharyngeal phase Report [...] Radiologist: Dr. Antonio Carlos MD Radiologist Physician Burner Shaft: Not applicable Report Dictated on Final Dictating Physician: OLIVIA DUNCAN CCC/JACKI MACKENZIE Signed Date and Time: 01/22/2019 4:43 pm Signed by: OLIVIA DUNCAN CCC/JACKI MACKENZIE Transcribed Date and Time: 01/23/2019 6:58 Normal [facility] HEAD CHARGER Modified Barium Swallow Study Patient Name: KATHERYN CHINO Fluoroscopy Exam Date/Time 01/22/2019 13:50:00 EDT Exam HEAD CHARGER Modified Barium Swallow Study Ordering Physician DO MENDOZA EUGENE F. Accession Number [id number] Reason For Exam Dysphagia, oropharyngeal phase Addendum This exam in the patient's exam history was incorrectly coded to this patient. The billing and report corrections were made on accession number [id number] Final Addendum Signed Date and Time: 01/23/2019 9:55 am Signed by: WEB CONTENT MANAGER, SYSTEM Transcribed Date and Time: 01/22/2019 4:46 [...] Report revised on 01/23/2019 09:55:55 EDT by WEB CONTENT MANAGER, SYSTEM Final Dictating Physician: MD CARLOS HARLAN Signed Date and Time: 01/22/2019 3:28 pm Signed by: MD CARLOS HARLAN Transcribed Date and Time: 01/22/2019 3:29 Normal [facility] MRI BRAIN W/O CONTRAST [id number] on 08-23-2018 MRI BRAIN W/O CONTRAST [id number] Performed at [facility] APPROVED BY: Hayes España MD EXAMINATION: MRI BRAIN W/O CONTRAST [id number] CLINICAL HISTORY: Epilepsy. Ataxia. History of seizure [...] changes throughout the supratentorial white matter. Normal [facility]. Teston 08-12-2018 [facility]. Test Result SEE BELOW Normal [facility] Comment on above: Result Comment: [...] Laboratory: Performed By: #### G OX #### [place] [address] Phenytoin, Freeon 08-09-2018 Phenytoin, Free SEE BELOW Normal [facility] Comment on above: Result Comment: Phen ytoin, Free 2.1 H 1.0-2.0 ug/mL Reference ranges and high/low indicator flags are provided as general guidelines only. The treating physician must determine appropriate target levels/dosing based on the specific clinical situation. This test was developed and its performance characteristics determined by [facility] [place] ([facility]). It has not been cleared or approved by the FDA. [facility] is regulated under CLIA as qualified to perform high-complexity testing. This test is used for clinical purposes. It should not be regarded as investigational or for research. Performing Laboratory: [facility] [address] [place] [address] Performed By: #### P TNFX #### [place] [address] Misc. Teston 08-08-2018 [facility] Order Code ETHOS Normal [facility] Comment on above: Performed By: #### G OX #### [place] [address] Test Name ETHOSUXIMIDE Normal [facility] Comment on above: Performed By: #### G OX #### [place] [address] Comprehensive Panelon 2017 Bilirubin [Mass/Vol] 0.3 mg/dL Normal 0.2-1.0 [facility] Comment on above: Performed By: #### P 14 #### [place] [address] ALP [Catalytic activity/Vol] 103 U/L Normal 46-116 [facility] Comment on above: Performed By: #### P 14 #### [place] [address] AST [Catalytic activity/Vol] 14 U/L Normal 9-37 [facility] Comment on above: Performed By: #### P 14 #### [place] [address] Creatinine [Mass/Vol] 0.74 mg/dL Normal 0.51-0.95 [facility] Comment on above: Performed By: #### P 14 #### [facility] [address] [place], [place] [address] Protein [Mass/Vol] 7.1 g/dL Normal 6.4-8.2 [facility] Comment on above: Performed By: #### P 14 #### [facility] [address] [place], [place] [address] ALT [Catalytic activity/Vol] 18 U/L Normal 12-78 [facility] Comment on above: Performed By: #### P 14 #### [facility] [address] [place], [place] [address] Albumin [Mass/Vol] 3.7 g/dL Normal 3.4-5.0 [facility] Comment on above: Performed By: #### P 14 #### [facility] [address] [place], [place] [address] Anion gap [Moles/Vol] 12 mmol/L Normal 8-16 [facility] Comment on above: Performed By: #### P 14 #### [facility] [address] [place], [place] [address] CO2 [Moles/Vol] 28 mmol/L Normal 21-32 [facility] Comment on above: Performed By: #### P 14 #### [facility] [address] [place], [place] [address] Urea nitrogen [Mass/Vol] 11 mg/dL Normal 7-18 [facility] Comment on above: Performed By: #### P 14 #### [facility] [address] [place], [place] [address] Calcium [Mass/Vol] 9.1 mg/dL Normal 8.5-10.1 [facility] Comment on above: Performed By: #### P 14 #### [facility] [address] [place], [place] [address] Glucose [Mass/Vol] 71 mg/dL Normal 70-99 [facility] Comment on above: Performed By: #### P 14 #### [facility] [address] [place], [place] [address] Chloride [Moles/Vol] 105 mmol/L Normal 98-107 [facility] Comment on above: Performed By: #### P 14 #### [facility] [address] [place], [place] [address] Potassium [Moles/Vol] 4.8 mmol/L Normal 3.5-5.1 [facility] Comment on above: Performed By: #### P 14 #### [facility] [address] [place] [address] Sodium [Moles/Vol] 140 mmol/L Normal 136-145 [facility] Comment on above: Performed By: #### P 14 #### [facility] [address] [place] [address] Dilantin,Randomon 08-07-2018 INR Coag (Bld) [Relative time] 13.0 mg/L Normal 10.0-20.0 [facility] Comment on above: Performed By: #### D AMY #### [facility] [address] [place] [address] Hemogramon 08-07-2018 Erythrocyte distribution width (RBC) [Ratio] 12.9 % Normal 11.7-14.4 [facility] Comment on above: Performed By: #### C BC1 #### [facility] [address] [place] [address] Hematocrit (Bld) [Volume fraction] 43.8 % Normal 34.1-44.9 [facility] Comment on above: Performed By: #### C BC1 #### [facility] [address] [place] [address] Hemoglobin (Bld) [Mass/Vol] 14.4 g/dL Normal 11.2-15.7 [facility] Comment on above: Performed By: #### C BC1 #### [facility] [address] [place], [place] [address] MCH (RBC) [Entitic mass] 31.4 pg Normal 25.6-32.2 [facility] Comment on above: Performed By: #### C BC1 #### [facility] [address] [place] [address] MCHC (RBC) [Mass/Vol] 32.9 % Normal 31.6-34.8 [facility] Comment on above: Performed By: #### C BC1 #### [facility] [address] [place] [id number] MCV (RBC) [Entitic vol] 95.6 fL High 79.4-94.8 [facility] Comment on above: Performed By: #### C BC1 #### [facility] [address] [place] [address] Platelet mean volume (Bld) [Entitic vol] 11.7 fL Normal 9.4-12.3 [facility] Comment on above: Performed By: #### C BC1 #### [facility] [address] [place] [id number] Platelets (Bld) [#/Vol] 219 thou/cmm Normal 182-369 [facility] Comment on above: Performed By: #### C BC1 #### [facility] [address] [place] [address] RBC (Bld) [#/Vol] 4.58 mil/cmm Normal 3.93-5.22 [facility] Comment on above: Performed By: #### C BC1 #### [facility] [address] [place] [address] RDW SD 45.6 fl Normal 36.4-46.3 [facility] Comment on above: Performed By: #### C BC1 #### [facility] [address] [place] [id number] WBC (Bld) [#/Vol] 5.66 thou/cmm Normal 3.98-10.04 [facility] Comment on above: Performed By: #### C BC1 #### [facility] [address] [place] [id number] MDRD GFRon 08-07-2018 GFR/1.73 sq M predicted among non-blacks MDRD (S/P/Bld) [Vol rate/Area] mL/min/{1.73_m2} Normal >60mL/min/ 1.73m2 [facility] Comment on above: Result Comment: If t he patient is , multiply the result by 1.210. Performed By: #### G FR #### [facility] [address] [place] [id number] Valproic Acid,[place].on 2017 Valproic Acid,[place]. 73 mg/L Normal 50-100 [facility] Comment on above: Performed By: #### V ALPR #### [facility] [address] [place], [place] [address] Ammoniaon 06-06-2018 Ammonia mass conc (P) ug/dL Normal 9-30 [facility] Comment on above: Performed By: #### H EMDF, NH33, CMP3, MG3, VALP3, PTN3 #### [facility] [address] [place] [address] CT Head or Brain w/o Contras ton 06-06-2018 CT Head or Brain w/o Contrast Patient Name: KATHERYN CHINO CT Exam Date/Time 06/06/2018 17:12:[address] Head or Brain w/o Contrast Ordering Physician DWAYNE ROMAN DANIEL M Accession Number [id number] CPT4 Codes 94360 () Reason For Exam seizure, headache Report [...] Date and Time: 06/06/2018 5:20 Normal [facility] Comp Metabolic Panelon 06-06 ALT enzyme act/vol 24 U/L Normal 13-69 [facility] Comment on above: Performed By: #### H EMDF, NH33, CMP3, MG3, VALP3, PTN3 #### [facility] [address] [place] [address] Calcium mass conc 10.1 mg/dL Normal 8.4-10.4 [facility] Comment on above: Performed By: #### H EMDF, NH33, CMP3, MG3, VALP3, PTN3 #### [facility] [address] [place] [address] Glucose mass conc 86 mg/dL Normal 70-100 [facility] Comment on above: Performed By: #### H EMDF, NH33, CMP3, MG3, VALP3, PTN3 #### [facility] [address] [place] [address] ALP enzyme act/vol 90 U/L Normal 38-126 [facility] Comment on above: Performed By: #### H EMDF, NH33, CMP3, MG3, VALP3, PTN3 #### [facility] [address] [place] [address] Anion gap molar conc 7 Normal [facility] Comment on above: Performed By: #### H EMDF, NH33, CMP3, MG3, VALP3, PTN3 #### [facility] [address] [place] [address] AST enzyme act/vol 23 U/L Normal 15-46 [facility] Comment on above: Performed By: #### H EMDF, NH33, CMP3, MG3, VALP3, PTN3 #### [facility] [address] [place] [address] Bilirubin mass conc 0.5 mg/dL Normal 0.2-1.3 [facility] Comment on above: Performed By: #### H EMDF, NH33, CMP3, MG3, VALP3, PTN3 #### [facility] [address] [place] [address] CO2 molar conc 29 mmol/L Normal 22-30 [facility] Comment on above: Performed By: #### H EMDF, NH33, CMP3, MG3, VALP3, PTN3 #### [facility] [address] [place] [address] Creatinine mass conc 0.62 mg/dL Normal 0.52-1.25 [facility] Comment on above: Performed By: #### H EMDF, NH33, CMP3, MG3, VALP3, PTN3 #### [facility] [address] [place] [address] GFR/1.73 sq M predicted among blacks MDRD vol rate/area (S/P/Bld) mL/min/{1.73_m2} Normal >60 [facility] Comment on above: Performed By: #### H EMDF, NH33, CMP3, MG3, VALP3, PTN3 #### [facility] [address] [place] [address] GFR/1.73 sq M predicted among non-blacks MDRD vol rate/area (S/P/Bld) mL/min/{1.73_m2} Normal >60 [facility] Comment on above: Result Comment: Sour ce- MDRD equation with creatinine calibration to IDMS(NKDEP) eGFR not recommended for drug dose adjustment Performed By: #### H EMDF, NH33, CMP3, MG3, VALP3, PTN3 #### [facility] [address] [place] [address] Protein mass conc 7.1 g/dL Normal 6.3-8.2 [facility] Comment on above: Performed By: #### H EMDF, NH33, CMP3, MG3, VALP3, PTN3 #### [facility] [address] [place] [address] Urea nitrogen mass conc 15 mg/dL Normal 7-20 [facility] Comment on above: Performed By: #### H EMDF, NH33, CMP3, MG3, VALP3, PTN3 #### [facility] [address] [place] [address] Potassium molar conc 4.7 mmol/L Normal 3.5-5.1 [facility] Comment on above: Performed By: #### H EMDF, NH33, CMP3, MG3, VALP3, PTN3 #### [facility] [address] [place] [address] Sodium molar conc 139 mmol/L Normal 137-145 [facility] Comment on above: Performed By: #### H EMDF, NH33, CMP3, MG3, VALP3, PTN3 #### [facility] [address] [place] [address] Albumin mass conc 4.5 g/dL Normal 3.5-5.0 [facility] Comment on above: Performed By: #### H EMDF, NH33, CMP3, MG3, VALP3, PTN3 #### [facility] [address] [place] [address] Chloride molar conc 103 mmol/L Normal 98-107 [facility] Comment on above: Performed By: #### H EMDF, NH33, CMP3, MG3, VALP3, PTN3 #### [facility] [address] [place] [address] Hemogram w/ Autodiffon 06-06 Abs Baso Cnt 0.1 10*3/uL Normal 0.0-0.2 [facility] Comment on above: Performed By: #### H EMDF, NH33, CMP3, MG3, VALP3, PTN3 #### [facility] [address] [place] [address] Abs Neutrophile Cnt 4.4 10*3/uL Normal 1.8-7.0 [facility] Comment on above: Performed By: #### H EMDF, NH33, CMP3, MG3, VALP3, PTN3 #### [facility] [address] [place] [address] Basophils/100 WBC (Bld) 1.0 % Normal 0.0-2.0 [facility] Comment on above: Performed By: #### H EMDF, NH33, CMP3, MG3, VALP3, PTN3 #### [facility] [address] [place] [address] Eosinophils #/vol (Bld) 0.0 10*3/uL Normal 0.0-0.5 [facility] Comment on above: Performed By: #### H EMDF, NH33, CMP3, MG3, VALP3, PTN3 #### [facility] [address] [place] [address] Eosinophils/100 WBC (Bld) 0.4 % Low 1.0-6.0 [facility] Comment on above: Performed By: #### H EMDF, NH33, CMP3, MG3, VALP3, PTN3 #### [facility] [address] [place] [address] Erythrocyte distribution width Ratio (RBC) 12.8 % Normal 11.5-14.5 [facility] Comment on above: Performed By: #### H EMDF, NH33, CMP3, MG3, VALP3, PTN3 #### [facility] [address] [place] [address] Granulocytes/100 WBC (Bld) 61.3 % Normal 40.0-80.0 [facility] Comment on above: Performed By: #### H EMDF, NH33, CMP3, MG3, VALP3, PTN3 #### [facility] [address] [place] [address] Hematocrit Volume Fraction (Bld) 40.5 % Normal 35.0-47.0 [facility] Comment on above: Performed By: #### H EMDF, NH33, CMP3, MG3, VALP3, PTN3 #### [facility] [address] [place] [address] Hemoglobin mass conc (Bld) 14.1 g/dL Normal 11.7-16.0 [facility] Comment on above: Performed By: #### H EMDF, NH33, CMP3, MG3, VALP3, PTN3 #### [facility] [address] [place] [address] Lymphocytes #/vol (Bld) 2.1 10*3/uL Normal 1.0-4.3 [facility] Comment on above: Performed By: #### H EMDF, NH33, CMP3, MG3, VALP3, PTN3 #### [facility] [address] [place] [address] Lymphocytes/100 WBC (Bld) 28.8 % Normal 20.0-40.0 [facility] Comment on above: Performed By: #### H EMDF, NH33, CMP3, MG3, VALP3, PTN3 #### [facility] [address] [place] [address] MCH Entitic mass (RBC) 32.3 pg Normal 26.0-34.0 [facility] Comment on above: Performed By: #### H EMDF, NH33, CMP3, MG3, VALP3, PTN3 #### [facility] [address] [place] [address] MCHC mass conc (RBC) 34.8 % Normal 32.0-36.0 [facility] Comment on above: Performed By: #### H EMDF, NH33, CMP3, MG3, VALP3, PTN3 #### [facility] [address] [place] [address] MCV Entitic volume (RBC) 93.0 fL Normal 79.0-98.0 [facility] Comment on above: Performed By: #### H EMDF, NH33, CMP3, MG3, VALP3, PTN3 #### [facility] [address] [place] [address] Monocytes #/vol (Bld) 0.6 10*3/uL Normal 0.0-0.8 [facility] Comment on above: Performed By: #### H EMDF, NH33, CMP3, MG3, VALP3, PTN3 #### [facility] [address] [place] [address] Monocytes/100 WBC (Bld) 8.5 % Normal 2.0-10.0 [facility] Comment on above: Performed By: #### H EMDF, NH33, CMP3, MG3, VALP3, PTN3 #### [facility] [address] [place] [address] Platelet mean volume Entitic volume (Bld) 10.1 fL Normal 7.4-10.4 [facility] Comment on above: Performed By: #### H EMDF, NH33, CMP3, MG3, VALP3, PTN3 #### [facility] [address] [place] [address] Platelets #/vol (Bld) 195 10*3/uL Normal 140-440 [facility] Comment on above: Performed By: #### H EMDF, NH33, CMP3, MG3, VALP3, PTN3 #### [facility] [address] [place] [address] RBC #/vol (Bld) 4.36 10*6/uL Normal 3.80-5.20 [facility] Comment on above: Performed By: #### H EMDF, NH33, CMP3, MG3, VALP3, PTN3 #### [facility] [address] [place] [address] WBC #/vol (Bld) 7.2 10*3/uL Normal 3.6-10.7 [facility] Comment on above: Performed By: #### H EMDF, NH33, CMP3, MG3, VALP3, PTN3 #### [facility] [address] [place] [address] Magnesiumon 06-06-2018 Magnesium mass conc 2.0 mg/dL Normal 1.6-2.3 [facility] Comment on above: Performed By: #### H EMDF, NH33, CMP3, MG3, VALP3, PTN3 #### [facility] [address] [place] [address] Phenytoin, Totalon 8 Phenytoin, Total 6.8 ug/mL Low 10.0-20.0 [facility] Comment on above: Performed By: #### H EMDF, NH33, CMP3, MG3, VALP3, PTN3 #### [facility] [address] [place] [address] Valproic Acidon 06-06-2018 Protein mass conc 38 ug/mL Low 50-120 [facility] Comment on above: Performed By: #### H EMDF, NH33, CMP3, MG3, VALP3, PTN3 #### [facility] [facility] [address] [place] [address] Vital Signs Date Time Vital Sign Value Performing Clinician Facility 02-25-2025 14:06-0400 Body mass index (BMI) [Ratio] 32.74 kg/m2 Lolita Jain PA-C Work Phone: [facility] 02-25-2025 14:06-0400 Body weight 81.19 kg Lolita Cristobal PA-C Work Phone: [facility] 02-25-2025 14:06-0400 Diastolic blood pressure 67 mm[Hg] Lolita Cristobal PA-C Work Phone: [facility] 02-25-2025 14:06-0400 Heart rate 71 /min Lolita Cristobal PA-C Work Phone: [facility] 02-25-2025 14:06-0400 SaO2% (BldA) [Mass fraction] 96 % Lolita Cristobal PA-C Work Phone: [facility] 02-25-2025 14:06-0400 Systolic blood pressure 142 mm[Hg] Lolita Cristobal PA-C Work Phone: [facility] 01-15-2025 08:01-0400 Diastolic blood pressure 73 mm[Hg] Jayant Jimenez MD Work Phone: [facility] 01-15-2025 08:01-0400 Heart rate 76 /min Jayant Jimenez MD Work Phone: [facility] 01-15-2025 08:01-0400 Systolic blood pressure 135 mm[Hg] Jayant Jimenez MD Work Phone: [facility] 01-15-2025 07:54-0400 Body height 157.5 cm Jayant Jimenez MD Work Phone: [facility] 01-15-2025 07:54-0400 Body mass index (BMI) [Ratio] 30.36 kg/m2 Jayant Jimenez MD Work Phone: [facility] 01-15-2025 07:54-0400 Body weight 75.3 kg Jayant Jimenez MD Work Phone: [facility] 01-15-2025 07:54-0400 Respiratory rate 18 /min Jayant Jimenez MD Work Phone: [facility] 12-08-2024 07:28-0500 Body temperature 98.01 [degF] Miriam Hennessy DO Work Phone: [facility] 12-08-2024 07:28-0500 Diastolic blood pressure 69 mm[Hg] Miriam Hennessy DO Work Phone: [facility] 12-08-2024 07:28-0500 Heart rate 70 /min Miriam Hennessy DO Work Phone: [facility] 12-08-2024 07:28-0500 Respiratory rate 18 /min Miriam Hennessy DO Work Phone: [facility] 12-08-2024 07:28-0500 SaO2% (BldA) [Mass fraction] 100 % Miriam Hennessy DO Work Phone: [facility] 12-08-2024 07:28-0500 Systolic blood pressure 136 mm[Hg] Miriam Hennessy DO Work Phone: [facility] 12-03-2024 20:24-0500 Body height 160 cm Miriam Hennessy DO Work Phone: [facility] 12-03-2024 20:24-0500 Body mass index (BMI) [Ratio] 31.87 kg/m2 Miriam Hennessy DO Work Phone: [facility] 12-03-2024 20:24-0500 Body weight 81.6 kg Miriam Hennessy DO Work Phone: [facility] 12-03-2024 16:00-0500 Diastolic blood pressure 66 mm[Hg] Todd Velasquez MD [facility] 12-03-2024 16:00-0500 Heart rate 89 /min Todd Velasquez MD [facility] 12-03-2024 16:00-0500 Inhaled oxygen flow rate 4 L/min Todd Velasquez MD [facility] 12-03-2024 16:00-0500 Respiratory rate 31 /min Todd Velasquez MD [facility] 12-03-2024 16:00-0500 SaO2% (BldA) [Mass fraction] 96 % Todd Deperro MD [facility] 12-03-2024 16:00-0500 Systolic blood pressure 95 mm[Hg] Todd Velasquez MD [facility] 12-03-2024 13:00-0500 Body temperature 98.2 [degF] Todd Velasquez MD [facility] 12-03-2024 09:32-0500 Body height 162.56 cm Todd Velasquez MD [facility] 12-03-2024 09:32-0500 Body mass index (BMI) [Ratio] 34 kg/m2 Todd Velasquez MD [facility] 12-03-2024 09:32-0500 Body weight 89.9 kg Todd Velasquez MD [facility] 11-26-2024 10:56-0500 Body height 157.5 cm Bone Bath [facility] 09-24-2024 07:55-0500 Body height 160 cm Jayant Jimenez MD Work Phone: [facility] 09-24-2024 07:55-0500 Body mass index (BMI) [Ratio] 31.89 kg/m2 Jayant Jimenez MD Work Phone: [facility] 09-24-2024 07:55-0500 Body weight 81.65 kg Jayant Jimenez MD Work Phone: [facility] 09-24-2024 07:55-0500 Diastolic blood pressure 81 mm[Hg] Jayant Jimenez MD Work Phone: [facility] 09-24-2024 07:55-0500 Heart rate 77 /min Jayant Jimenez MD Work Phone: [facility] 09-24-2024 07:55-0500 Respiratory rate 16 /min Jayant Jimenez MD Work Phone: [facility] 09-24-2024 07:55-0500 Systolic blood pressure 132 mm[Hg] Jayant Jimenez MD Work Phone: [facility] 09-18-2023 13:27-0500 Diastolic blood pressure 72 mm[Hg] [facility] 09-18-2023 13:27-0500 Heart rate 70 /min [facility] 09-18-2023 13:27-0500 Respiratory rate 20 /min [facility] 09-18-2023 13:27-0500 SaO2% (BldA) [Mass fraction] 94 % [facility] 09-18-2023 13:27-0500 Systolic blood pressure 141 mm[Hg] [facility] 09-18-2023 11:58-0500 Body height 162.56 cm [facility] 09-18-2023 11:58-0500 Body mass index (BMI) [Ratio] 33.7 kg/m2 [facility] 09-18-2023 11:58-0500 Body temperature 98.1 [degF] [facility] 09-18-2023 11:58-0500 Body weight 89 kg [facility] Encounters Encounter Date Encounter Type Care Provider Facility Start: 08-19-2025 ambulatory Todd Boyd ty:[facility] Start: 08-13-2025 End: 08-13-2025 ambulatory Todd Velasquez Sr. Facility:[facility] Start: 08-09-2025 End: 08-09-2025 Emergency department patient visit Todd Velasquez Sr. Facility:[facility] Start: 06-17-2025 ambulatory Todd Velasquez Sr. Facilsandy ty:[facility] Start: 06-01-2025 ambulatory Todd Velasquez Sr. Facilsandy ty:[facility] Start: 05-27-2025 ambulatory Todd Velasquez Sr. Facilsandy ty:[facility] Start: 04-16-2025 End: 04-16-2025 Telephone encounter Lolita Jain PA-C Work Phone: Rheumatology Start: 04-06-2025 ambulatory Todd Velasquez Sr. Facilsandy ty:[facility] Start: 04-06-2025 Registered Referred Todd Velasquez MD -[facility] Start: 03-10-2025 End: 03-10-[address] Todd Velasquez Sr., DO Work Phone: -[facility] Start: 03-10-2025 End: 03-10-2025 Departed Referred Todd Velasquez MD [facility] Start: 03-10-2025 End: 03-10-2025 ambulatory Todd Velasquez Sr. Facility:[facility] Start: 03-04-2025 ambulatory Todd Velasquez Sr. Facilsandy ty:[facility] Start: 03-04-2025 [facility] Start: 02-27-2025 ambulatory Todd Velasquez Sr. Facilsandy ty:[facility] Start: 02-27-2025 Registered Referred Todd Velasquez MD [facility] Start: 02-26-2025 End: 02-26-2025 ambulatory Guille Corona RPh [facility] Start: 02-26-2025 End: 02-26-2025 Patient encounter procedure Guille Corona RPh [facility] Comment on above: SPP Osteoporosis - T reatment Referral (Teriparatide); Insurance Authorization (Teriparatide PA Submission pending ) Start: 02-26-2025 End: 02-26-2025 Telephone encounter Lolita Jain PA-C Work Phone: Rheumatology Start: 02-25-2025 End: 02-25-2025 Patient encounter procedure Lolita LAO-Juvenal Work Phone: Rheumatology Comment on above: Osteoporosis without current pathological fracture, unspecified osteoporosis type (Primary Dx); Wheelchair dependent; 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 Work Phone: Start: 02-02-2025 End: 02-02-2025 Departed [facility] Start: 02-02-2025 Registered Referred [facility] Start: 02-02-2025 End: 02-02-2025 ambulatory Todd Velasquez Sr. Facility:[facility] Start: 01-28-2025 End: 01-28-2025 ambulatory Todd Velasquez MD [facility] Work Phone: Start: 01-28-2025 End: 01-28-2025 Departed Referred [facility] Start: 01-28-2025 Registered Referred [facility] Start: 01-28-2025 End: 01-28-2025 ambulatory Todd Velasquez Sr. Facility:[facility] Start: 01-19-2025 End: 01-19-2025 ambulatory Todd Velasquez MD [facility] Work Phone: Start: 01-19-2025 End: 01-19-2025 Departed Referred [facility] Start: 01-19-2025 End: 01-19-2025 ambulatory Todd FOX Facility:[facility] Start: 01-16-2025 End: 01-19-2025 Telephone encounter Jayant Jimenez MD Work Phone: Neurology Comment on above: Medication Problem ( Lacosamide) Start: 01-15-2025 End: 01-15-2025 Patient encounter procedure Jayant Jimenez MD Work Phone: Neurology Epilepsy Comment on above: Intractable epilepsy without status epilepticus, unspecified epilepsy type (HCC); Osteoporosis without current pathological fracture, unspecified osteoporosis type Start: 01-15-2025 End: 01-15-2025 ambulatory ORVILLE MENDOZA Facility:[facility] Start: 12-26-2024 End: 12-26-2024 ambulatory Todd [address]asquez MD [facility] Work Phone: Start: 12-26-2024 End: 12-26-2024 [facility] Start: 12-26-2024 Registered Referred Todd Velsaquez MD -[facility] Start: 12-26-2024 End: 12-26-2024 ambulatory Todd FOX Facility:[facility] Start: 12-24-2024 End: 12-24-2024 Telephone encounter Jayant Jimenez MD Work Phone: Neurosurgery Comment on above: Orders ([facility] Start: 12-23-2024 End: 12-24-2024 Telephone encounter Jayant Jimeenz MD Work Phone: Neurology Comment on above: Medication Problem ( Nayzilam - Medication Not Working) Start: 12-19-2024 End: 12-24-2024 Telephone encounter Jayant Jimenez MD Work Phone: Neurology Comment on above: Outside Lab Results (lacosamide) Start: 12-15-2024 End: 12-15-2024 ambulatory [address] MD [facility] Work Phone: Start: 12-15-2024 End: 12-15-2024 Departed Referred Todd Velasquez MD -[facility] Start: 12-15-2024 End: 12-15-2024 ambulatory Todd FOX Facility:[facility] Start: 12-10-2024 ambulatory Todd FOX Facili ty:[facility] Start: 12-10-2024 Registered Referred Todd Velasquez MD -[facility] Start: 12-04-2024 End: 12-04-2024 Emergency department patient visit [facility] Start: 12-03-2024 End: 12-08-2024 Evaluation and management [...] pathological fracture, unspecified osteoporosis type (Primary Dx) Therapist Physical - O ther Start: 11-26-2024 ambulatory ORVILLE MENDOZA Facility:[facility] Start: 11-26-2024 End: 11-26-2024 Subsequent hospital visit by physician Bone Density Bath [facility] Comment on above: 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 osteop orosis [Z13.820] Start: 11-14-2024 ambulatory Todd Boyd ty:[facility] Start: 11-14-2024 Registered Referred Todd Velasquez MD -[facility] Start: 11-11-2024 End: 11-11-2024 Telephone encounter Jayant Jimenez MD Work Phone: Neurosurgery Comment on above: Received Outside Med ical Records (Seizure monitoring report ) Refill Request Start: 11-10-2024 End: 11-11-2024 Telephone encounter Jayant Jimenez MD Work Phone: Neurology Comment on above: Seizures Start: 11-08-2024 ambulatory Todd Boyd ty:[facility] Start: 11-08-2024 [facility] Start: 11-07-2024 End: 11-10-2024 Telephone encounter Jayant Jimenez MD Work Phone: Neurology Comment on above: general (seizure mon itoring report) Start: 09-29-2024 ambulatory Todd Boyd ty:[facility] Start: 09-29-2024 [facility]istered [facility] Start: 09-26-2024 End: 09-26-2024 Telephone encounter Jayant Jimenez MD Work Phone: Neurology Comment on above: Outside Lab Results ([facility]) Start: 09-26-2024 ambulatory Todd Boyd ty:[facility] Start: 09-26-2024 Registered 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 Start: 09-22-2024 Registered Ref[facility] Start: 09-19-2024 End: 09-22-2024 Telephone encounter Jayant Jimenez MD Work Phone: Neurology Comment on above: Outside Lab Results (PHENYTOIN) Start: 09-19-2024 ambulatory Todd Boyd ty:[facility] Start: 09-19-2024 Registered Referred [facility] Start: 09-17-2024 ambulatory Todd Boyd ty:[facility] Start: 09-17-2024 [facility] Start: 09-15-2024 ambulatory Todd Boyd ty:[facility] Start: 09-05-2024 End: 09-05-2024 Telephone encounter Jayant Jimenez MD Work Phone: Neurology Comment on above: Forms (Review result s and orders) Start: 09-05-2024 End: 09-05-2024 ambulatory [facility] Facility:[facility] Start: 08-27-2024 End: 08-29-2024 Telephone encounter Jayant Jimenez MD Work Phone: Neurology Comment on above: Outside Labs Results (VPA) Start: 08-27-2024 End: 08-27-2024 ambulatory [facility] Facility:[facility] Start: 08-17-2024 End: 08-20-2024 Evaluation and management of inpatient [facility] Facility:[facility] Start: 08-17-2024 End: 08-17-2024 Telephone encounter Francisco Javier Salazar MD Work Phone: General Neurology Start: 11-05-2023 Registered Referred [facility] Start: 10-29-2023 End: 10-29-[address] [facility] Work Phone: Start: 10-29-2023 End: 10-29-2023 Departed Referred [facility] Start: 09-25-2023 End: 09-25-[address] [facility] Work Phone: Start: 09-25-2023 End: 09-25-2023 Departed Referred [facility] Start: 09-18-2023 End: 09-18-2023 Emergency department patient visit [facility] Work Phone: Start: 08-15-2023 End: 08-15-[address] [facility] Work Phone: Start: 08-15-2023 End: 08-15-2023 Departed Referred [facility] Start: 08-10-2023 Telephone encounter Neurology Provid er Neurology Comment on above: Release Of Medical R ecords Start: 08-07-2023 Telephone encounter Neurology Provid er Neurology Comment on above: Results Start: 08-06-2023 End: 08-06-[address] [facility] Work Phone: Start: 08-06-2023 End: 08-06-2023 Departed Referred [facility] Start: 05-14-2023 End: 05-14-2023 Departed Referred [facility] Start: 11-27-2022 End: 11-27-2022 ambulatory [facility] Work Phone: Start: 11-27-2022 End: 11-27-2022 Departed Referred [facility] Start: 10-30-2022 End: 10-30-2022 Departed Referred [facility] Start: 10-24-2022 End: 10-24-2022 Departed Referred [facility] Start: 10-24-2022 Registered Referred [facility] Start: 09-04-2022 End: 09-04-2022 ambulatory [facility] Work Phone: Start: 09-04-2022 End: 09-04-2022 Departed Referred [facility] Start: 06-12-2022 End: 06-12-2022 ambulatory [facility] Work Phone: Start: 06-12-2022 End: 06-12-2022 Departed Referred [facility] Start: 03-20-2022 End: 03-20-2022 Departed Referred [facility] Start: 12-26-2021 End: 12-26-2021 Departed Referred [facility] Start: 12-26-2021 Registered Referred [facility] Start: 12-21-2021 End: 12-21-2021 Departed Referred [facility] Start: 12-21-2021 Registered Referred [facility] Start: 11-23-2021 End: 11-23-2021 Departed Referred [facility] Start: 11-23-2021 Registered Referred [facility] Start: 10-26-2021 End: 10-26-2021 Departed Referred [facility] Start: 10-03-2021 Registered Referred [facility] Start: 01-22-2019 Patient encounter procedure Orville Mendoza [facility] Start: 06-06-2018 Emergency department patient visit PROVIDER UNKNOWN [facility] Procedures Date Procedure Procedure Detail Performing Clinician Start: 04-06-[address] Todd Velasquez Sr. DO Work Phone: Start: 03-10-[address] Todd Velasquez Sr. DO Work Phone: Comment on above: Test Ordered: [id number] LacosamideTest(s) 0 [id number]-[id number] developed and its performance characteristicsdetermined by [facility]. It has not been cleared or approvedby the Food and Drug Administration.Lacosamide 8.0 ug/mL Reference Range: 5.0-10.0 Limit of Detection 0.5 Mean plasma concentrations following maintenance dose 200 mg/day 4.99 +/- 2.51 ug/mL 400 mg/day 9.35 +/- 4.22 ug/mL 600 mg/day 12.46 +/- 5.60 ug/mLPerformed at: [facility] [address] [id number] Director: Nahed Naidu MD, Phone: [phone] at: [address] [id number] Director: Haris Peraza PhD, Phone: [phone] Start: 02-27-2025 Calcium measurement Todd Velasquez MD Start: 02-27-2025 Electrophoresis: [id number] Dr. Whitley Sr. DO Work Phone: Start: 02-27-2025 Electrophoresis: [id number] Dr. Gutierrez Ruiz DO Work Phone: Start: 02-27-2025 Electrophoresis: gamma globulin Dr. Todd Velasquez Sr. DO Work Phone: Start: 02-27-2025 Parathyroid hormone measurement Todd keenan MD Start: 02-27-[address] Todd Velasquez Sr. DO Work Phone: Comment on above: Test Ordered: [id number] C-Telopeptide, Seru mC-Telopeptide, Serum 197 pg/mL ES Reference Range: .Reference Range:Premenopausal Women: 34 - 635Postmenopausal Women: 34 - 1037Performed at: [facility] [id number] [place], [place] [id number] Director: Felix Bonilla MD, Phone: [phone] at: - [facility] [id number] [place], [place] [id number] Director: Haris Peraza PhD, Phone: [phone] Start: 02-27-2025 Serum inorganic phosphate measurement Todd [...] Thyrotropin [Units/volume] in Serum or Plasma Miriam Gerhard DO Work Phone: Plan of Treatment Date Care Activity Detail Author Start: 12-08-2027 Diabetes Screening Diabetes Screening [facility] Start: 08-18-2027 Diabetes Screening Diabetes Screening [facility] Start: 11-26-2026 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 osteoporosis [facility] Start: 07-17-2025 End: 07-17-2025 Patient encounter procedure 07/17/2025 10:00 AM EDT Office Visit Neurology Epilepsy [address] [facility] [address] [place] [address] Jayant Jimenez MD [address] [place] [address] 6 month follow-up Neurology Epilepsy Comment on above: 6 month follow-up Start: 06-15-2025 Influenza vaccination [facility] Start: 05-28-2025 End: 05-28-2025 Patient encounter procedure 05/28/2025 2:30 PM EDT Office Visit Rheumatology [address] [place], [place] [address] Lolita Jain PA-C [address] [place] [address] 3 month follow up Rheumatology Comment on above: 3 month follow up Start: 02-27-[address] [facility] Start: 02-25-2025 End: 02-25-2025 Patient encounter procedure 02/25/2025 3:00 PM EDT Office Visit Rheumatology [address] [place], [place] [id number] Lolita Jain PA-C [address] [place] [address] osteoporosis Rheumatology Comment on above: osteoporosis Start: 02-25-2025 End: 05-27-2025 25-hydroxyvitamin D3 [Mass/volume] in Serum or Plasma VITAMIN D 25 HYDROXY Lab Routine Osteoporosis without current pathological fracture, unspecified osteoporosis type Expected: 02/25/2025, Expires: 05/27/2025 [facility] Comment on above: Expected: 02/25/2025, [...] unspecified osteoporosis type Expected: 02/25/2025, Expires: 05/27/2025 [facility] Comment on above: Expected: 02/25/2025, Expires: Start: 02-25-2025 End: 05-27-2025 Collagen crosslinked C-telopeptide [Mass/volume] in Serum or Plasma C TELOPEPTIDE, BETA Lab Routine Osteoporosis without current pathological fracture, unspecified osteoporosis type Expected: 02/25/2025, Expires: 05/27/2025 [facility] Comment on above: Expected: 02/25/2025, Expires: Start: 02-25-2025 End: 05-27-2025 Magnesium [Mass/volume] in Serum or Plasma MAGNESIUM Lab Routine Osteoporosis without current pathological fracture, unspecified osteoporosis type Expected: 02/25/2025, Expires: 05/27/2025 [facility] Comment on above: Expected: 02/25/2025, Expires: Start: 02-25-2025 End: 08-13-2025 Parathyrin.intact [Mass/volume] in Serum or Plasma PTH INTACT Lab Routine Osteoporosis without current pathological fracture, unspecified osteoporosis type Expected: 02/25/2025, Expires: 05/27/2025 [facility] Comment on above: Expected: 02/25/2025, Expires: Start: 02-25-2025 End: 05-27-2025 Phosphate [Mass/volume] in Serum or Plasma PHOSPHORUS INORGANIC Lab Routine Osteoporosis without current pathological fracture, unspecified osteoporosis type Expected: 02/25/2025, Expires: 05/27/2025 [facility] Comment on above: Expected: 02/25/2025, Expires: Start: 02-25-2025 End: 05-27-2025 PROTEIN ELECT RND UR W/INTERP PROTEIN ELECT RND UR W/INTERP Lab Routine Osteoporosis without current pathological fracture, unspecified osteoporosis type Expected: 02/25/2025, Expires: 05/27/2025 [facility] Comment on above: Expected: 02/25/2025, Expires: Start: 02-25-2025 End: 05-27-2025 PROTEIN ELECTROPHORESIS SERUM W/INTERP PROTEIN ELECTROPHORESIS SERUM W/INTERP Lab Routine Osteoporosis without current pathological fracture, unspecified osteoporosis type Expected: 02/25/2025, Expires: 05/27/2025 [facility] Comment on above: Expected: 02/25/2025, Expires: Start: 01-15-2025 End: 01-15-2025 Patient encounter procedure 01/15/2025 8:00 AM EDT Office Visit Neurology Epilepsy [address] [place] [address] Jayant Jimenez MD [address] [place] [address] 3 month follow-up Neurology Epilepsy Comment on above: 3 month follow-up Start: 12-03-2024 [facility] Start: 11-26-2024 End: 11-26-2024 Patient encounter procedure 11/26/2024 10:30 AM EST Appointment [facility] [address] [place] [address] Bone Density(TBS) [facility] Comment on above: Bone Density(TBS) Start: 11-25-2024 End: 11-25-2024 Patient encounter procedure 11/25/2024 8:00 AM EST Appointment [facility] [address] [facility] [place] [address] Bone Density(TBS) [facility] Comment on above: Bone Density(TBS) Start: 10-15-2024 Advance Directive Discussion Advance Directive Discussion [facility] Start: 09-24-2024 End: 09-24-2025 Ammonia [Moles/volume] in Plasma AMMONIA Lab Routine 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 osteoporosis Nonintractable generalized idiopathic epilepsy without status epilepticus (HCC) Expected: 09/24/2024, Expires: 09/24/2025 [facility] Work Phone: Comment on above: Expected: 09/24/2024, Expires: Start: 09-24-2024 End: 09-24-2024 Patient encounter procedure 09/24/2024 8:00 AM EST Office Visit Neurology Epilepsy [address] [place] [address] Jayant Jimenez MD [address] [place] [address] Hospital Follow up Neurology Epilepsy Comment on above: Hospital Follow up Start: 06-15-2024 Covid-19 Vaccine ( season) Covid-19 Vaccine ( season) [facility] Start: 06-15-2024 Influenza vaccination Influenza Vaccine (#1) [facility] Start: 10-24-2023 Thyroid stimulating hormone measurement TSH Level [facility] Start: 10-15-2023 Advance Directive Discussion Advance Directive Discussion [facility] Start: 09-18-2023 [facility] Start: 09-18-[address] [facility] Start: 06-15-2023 Influenza vaccination Influenza Vaccine (#1) [facility] Start: 10-15-2022 Advance Directive Discussion Advance Directive Discussion [facility] Start: 10-15-2022 Depression Assessment Depression Assessment [facility] Start: 2022 RSV Immunization for Adults (1 - 1-dose 75+ series) RSV Immunization for Adults (1 - 1-dose 75+ series) [facility] Start: 2022 RSV Vaccine (1 - 1-dose 75+ series) RSV Vaccine (1 - 1-dose 75+ series) [facility] Start: 08-07-2021 Diabetes Screening Diabetes Screening [facility] Start: 2012 Bone Density Screening Bone Density Screening [facility] Start: 2012 Pneumococcal Vaccine: 65+ (1 - PCV) Pneumococcal Vaccine: 65+ (1 - PCV) [facility] Start: 2012 Pneumococcal Vaccine: 65+ (1 of 1 - PCV) Pneumococcal Vaccine: 65+ (1 of 1 - PCV) [facility] Start: 2012 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 osteoporosis Bone Density Screening [facility] Start: 06-15-2012 Medicare Annual Wellness Visit Medicare Annual Wellness Visit [facility] Start: 2007 RSV Vaccine (1 - 1-dose 60+ series) RSV Vaccine (1 - 1-dose 60+ series) [facility] Start: 1997 Pneumococcal Vaccine: 50+ (1 of 1 - PCV) Pneumococcal Vaccine: 50+ (1 of 1 - PCV) [facility] Start: 1997 Pneumococcal Vaccine: 50+ Years (1 of 1 - PCV) Pneumococcal Vaccine: 50+ Years (1 of 1 - PCV) [facility] Start: 1997 Shingrix Vaccine (1 of 2) Shingrix Vaccine (1 of 2) [facility] Start: 1997 Zoster Vaccines (1 of 2) Zoster Vaccines (1 of 2) [facility] Start: 1966 DTaP/Tdap/Td Vaccines (1 - Tdap) DTaP/Tdap/Td Vaccines (1 - Tdap) [facility] Start: 1966 Urine microalbumin profile DTaP,Tdap,Td Vaccine (1 - Tdap) [facility] Start: 1965 Anxiety Screening Anxiety Screening [facility] Start: 1965 Depression Screening Depression Screening [facility] Start: 1965 Hepatitis C Screening Hepatitis C Screening [facility] Start: 1965 Hepatitis C screening Hepatitis C Screening [facility] Start: 1959 Depression Monitoring Depression Monitoring [facility] Start: 01-07-1946 Covid-19 Vaccine (#1) Covid-19 Vaccine (#1) [facility] Start: 1945 Lipid panel Lipid Panel [facility] Start: 1945 Medicare Annual Wellness (AWV) Medicare Annual Wellness (AWV) [facility] Albumin/Globulin [Ma ss Ratio] in Serum or Plasma by Electrophoresis [facility] End: 10-24-2025 BD DXA TRABECULAR BONE SCORE (TBS) BD DXA TRABECULAR BONE SCORE (TBS) Radiology Routine 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 osteoporosis 1 Occurrences starting 09/24/2024 until 10/24/2025 [facility] Comment on above: 1 Occurrences starting 09/24/2024 until 10/24/2025 End: 11-26-2024 BD DXA TRABECULAR BONE SCORE (TBS) [facility] Comment on above: 1 Occurrences starting 11/26/2024 until 11/26/2024 CALCIUM, 24 HR URINE CALCIUM, 24 HR URINE Lab Routine Osteoporosis without current pathological fracture, unspecified osteoporosis type Ordered: 02/25/2025 [facility] Comment on above: Ordered: 02/25/2025 CREATININE, 24 HOUR URINE CREATININE, 24 HOUR URINE Lab Routine Osteoporosis without current pathological fracture, unspecified osteoporosis type Ordered: 02/25/2025 [facility] Comment on above: Ordered: 02/25/2025 End: 10-24-2025 DXA Skeletal system.axial Views for bone density DXA-AXIAL SKELETON Radiology Routine 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 Electrophoresis: [id number] [facility] Electrophoresis: franky ma globulin [facility] Globulin measurement [facility] End: 12-04-2024 Lacosamide [facility] Work Phone: Comment on above: Once (Lab) for 1 Occurrences starting until 12/04/2024 Patient Education ED Seizure, Re current (Adult) [facility] Work Phone: Patient referral [facility] Work Phone: Protein electrophore sis panel - Serum or Plasma [facility] Serum protein electrophoresis [facility] Total globulins measurement [facility] Immunizations Immunization Date Immunization Notes Care Provider Karishma long 07-11-2022 influenza virus vacc ine, unspecified formulation Miriam Hennessy DO Work Phone: [facility] Payers Date Payer Category Payer Self-pay [id number] 2022 Medicaid MEDICAID - [facility] [id number] 2022 Medicaid [id number] 2016 Medicare supplementa l policy (as second payer) [employer] MEDICARE SUPPLEMENT [id number] 2016 Private Health Insurance 2016 Private Health Insurance [id number] 2015 Medicare [id number] 2012 Medicare 2012 Medicare [id number] 1945 Unknown [id number] .668 1945 Unknown [id number] 2.16.840.1.213833.3.579.2 .668 Unknown [id number] 2.16.840.1.972699.3.579.2 .462 Unknown [id number] 2.16.840.1.609000.3.579.2 .462 Unknown [id number] 2.16.840.1.205108.3.579.2 .462 Unknown [id number] 2.16.840.1.235523.3.579.2 .462 Unknown [id number] 2.16.840.1.945658.3.579.2 .462 Unknown [id number] 2.16.840.1.955197.3.579.2 .462 Unknown [id number] 2.16.840.1.026411.3.579.2 .462 Unknown [id number] 2.16.840.1.100301.3.579.2 .462 Unknown [id number] 2.16.840.1.290466.3.579.2 .462 Unknown [id number] 2.16.840.1.886303.3.579.2 .462 Unknown [id number] 2.16.840.1.129068.3.579.2 .462 Unknown [id number] 2.16.840.1.398317.3.579.2 .462 Unknown [id number] 2.16.840.1.524978.3.579.2 .462 Unknown [id number] 2.16.840.1.548924.3.579.2 .462 Unknown [id number] 2.16.840.1.099125.3.579.2 .462 Unknown [id number] 2.16.840.1.144976.3.579.2 .462 Unknown [id number] 2.16.840.1.770688.3.579.2 .462 Unknown [id number] 2.16.840.1.680940.3.579.2 .462 Unknown [id number] 2.16.840.1.785756.3.579.2 .462 Unknown [id number] 2.16.840.1.387773.3.579.2 .462 Social History Date Type Detail [facility] Work Phone: Start: 1945 Sex Assigned At Female W [facility] Start: 08-07-2018 End: 09-24-2024 Tobacco smoking status NHIS Never smoked tobacco [facility] Start: 08-07-2018 End: 09-24-2024 Tobacco use and exposure Smokeless tobacco non-user [facility] Start: 09-01-2019 End: 09-19-2020 History of Social function [facility] Start: 09-01-2019 End: 09-19-2020 Tobacco use panel [facility] Adult Depression Screening Assessment 0 [facility] Start: 1945 Sex Assigned At Not on file [facility] Start: 09-18-2023 [facility] Has the [employer], [employer], or water [employer] threatened to shut off services in your home in past 12Mo No [facility] (I/We) worried rosibel er (my/our) food would run out before (I/we) got money to buy more. Never true [facility] History of tobacco use Passive smoker [facility] Start: 01-27-2020 Alcoholic beverage intake Current non-drinker of alcohol (finding) [facility] Are you now , , , , never or living with a partner? Never [facility] How often to you hav e a drink containing alcohol? Never [facility] How hard is it for y ou to pay for the very basics like food, housing, medical care, and heating Not very hard [facility] Do you feel stress - tense, restless, nervous, or anxious, or unable to sleep at night because your mind is troubled all the time - these days [OSQ] Not at all [facility] Start: 05-15-2022 End: 02-10-2025 Sex Female (finding) [facility] Medical Equipment Procedure Code Equipment Code Equipment Origin al Text Equipment Identifier Dates Use 1 pen needle once daily as directed for Teriparatide injections [id number] Start: 03-03-2025 Functional Status Date Assessment Result Facility 08-20-2024 Are you deaf, or do you have serious difficulty hearing No 08/20/2024 11:29 AM Jennifer Coy RN No [facility] 08-20-2024 Are you blind, or do you have serious difficulty seeing, even when wearing glasses No 08/20/2024 11:29 AM Jennifer Coy RN No [facility] 08-20-2024 Do you have serious difficulty walking or climbing stairs Yes 08/20/2024 11:29 AM Jennifer Coy RN Yes [facility] 08-20-2024 Do you have difficul ty dressing or bathing Yes 08/20/2024 11:29 AM Jennifer Coy RN Yes [facility] 08-20-2024 Because of a physica l, mental, or emotional condition, do you have difficulty doing errands alone such as visiting a physician's office or shopping Yes 08/20/2024 11:29 AM Jennifer Coy RN Yes [facility] Mental Status Date Assessment Result Facility 12-03-2024 Cognitive function Level Of Cons ciousness Awake;Appropriate;Follows Commands;Drowsy [facility]: 08-20-2024 Because of a physica l, mental, or emotional condition, do you have serious difficulty concentrating, remembering, or making decisions Yes 08/20/2024 11:29 AM Jennifer Coy, MEGA Yes [facility] 09-18-2023 Cognitive function Voice/Name Amparo [facility] Work Phone: Clinical Notes 08-08-2023 to 04-16-2025 Telephone Encounter - Shavonne Sinclair RN - 04/16/2025 10:19 AM EDTTelephone Encounter - Shavonne Sinclair RN - 04/16/2025 10:19 AM EDTTelephone Encounter - Jacki Sumner MA - 02/26/2025 2:54 PM EDT Note Date & Type Note Facility 04-16-2025 Telephone encounter Note Telephone encounter faxed. Shavonne Sinclair RN [facility] 04-16-2025 Miscellaneous Notes Telephone encounter faxed. Shavonne Sinclair RN Received outside medical records from [facility] dated 04/06/25 PTH level is 76 [...] don't use in patients who have had GA/Stroke in the past year. She will review with Katheryn and ERNESTINE and let us know preference moving forward regarding treatment. Thanks KG Please fax this phone encounter to [phone] for their records documented in this encounter [facility] 04-16-2025 Telephone encounter Note Received outside medical records from [facility] dated 04/06/25 PTH level is 78 [...] don't use in patients who have had GA/Stroke in the past year. She will review with Katheryn and ERNESTINE and let us know preference moving forward regarding treatment. Thanks KG Please fax this phone encounter to [phone] for their records [facility] 02-26-2025 Telephone encounter Note Hermann Avalos from [facility] called back. Message from Lolita Jain PA-C given and she verbalized understanding. [facility] 02-26-2025 Miscellaneous Notes Hermann Avalos from [facility] called back. Message from Lolita Jain PA-C given and she verbalized understanding. Ok to disregard 24 hour urine testing. Just have her take calcium citrate 600 mg daily, this will be fine with her current dietary intake. Volodymyr from [facility] called into office requesting clarification of calcium citrate supplement. Per office note SHILO velazquez states "The recommendation is 3698-0572 mg of calcium daily between diet and supplement. If she continues to eat 3 servings of dairy per day, I recommend additional 600 mg daily via calcium citrate supplement. " Office note faxed to [facility]. Nurse states that patient in almost completely incontinence and they state a 24 hr urine will be difficult. Please advise. Felipa Zuñiga LPN documented in this encounter [facility] 02-26-2025 Telephone encounter Note Ok to disregard 24 hour urine testing. Just have her take calcium citrate 600 mg daily, this will be fine with her current dietary intake. [facility] 02-26-2025 Telephone encounter Note Volodymyr from [facility] called into office requesting clarification of calcium citrate supplement. Per office note SHILO velazquez states "The recommendation is 7829-8995 mg of calcium daily between diet and supplement. If she continues to eat 3 servings of dairy per day, I recommend additional 600 mg daily via calcium citrate supplement. " Office note faxed to [facility]. Nurse states that patient in almost completely incontinence and they state a 24 hr urine will be difficult. Please advise. Felipa Zuñiga LPN [facility] Work Phone: 02-26-2025 History of Present illness Narrative [facility] received prescription(s) for Teriparatide from Lolita Jain 's office. Benefits investigation was conducted, indicating that a prior authorization is required by patient's insurance plan with [facility]. Note will be updated once prior authorization has been submitted. Petrona Almanza CPhT (Dee) [facility] Neurology/Cardiology/Infections Disease [facility] P: F: documented in this encounter [facility] 02-26-2025 Note HNO ID: [id number] Author: ?, ?, ? Service: ? Author Type: ? Type: Progress Notes Filed: 02/26/2025 07:55 Note Text: [facility] received prescription(s) for Teriparatide from Lolita Jain 's office. Benefits investigation was conducted, indicating that a prior authorization is required by patient's insurance plan with [facility]. Note will be updated once prior authorization has been submitted. Petrona Almanza CPhT (Dee) [facility] Neurology/Cardiology/Infections Disease [facility] P: F: [facility] 02-26-2025 Note HNO ID: [id number] Author: ?, ?, ? Service: ? Author Type: ? Type: Progress Notes Filed: 02/27/2025 07:44 Note Text: [facility] received prescription(s) for Teriparatide PA was approved with details listed below. Plan Name Inderjit PA reference number: [id number] Approval Dates: 10/15/24 - 02/16/27 Prescriptions will now be processed through [facility] for determination of next steps. Petrona Almanza CPhT (Dee) [facility] Neurology/Cardiology/Infections Disease [facility] P: F: [facility] 02-26-2025 Note HNO ID: [id number] Author: GUILLE CORONA RPh Service: ? Author Type: Pharmacist Type: Progress Notes Filed: 04/19/2025 14:37 Note Text: Per 04-16-25 encounter from SHILO Velazquez: Received outside medical records from [facility] dated 04/06/25 PTH level is 76 [...] don't use in patients who have had GA/Stroke in the past year. She will review with Katheryn and ERNESTINE and let us know preference moving forward regarding treatment. Teriparatide start on hold; at this time, no further action required by [facility]. Guille Corona, PharmD, CSP, MSCS Pharmacist, [facility] 02-26-2025 Note HNO ID: [id number] Author: ?, ?, ? Service: ? Author Type: ? Type: Progress Notes Filed: 02/26/2025 16:22 Note Text: [facility] received prescription(s) for Teriparatide PA was initiated and pending review. Plan Name: [employer] Plan Agent/Castellanos: [facility] castellanos [id number] Case: [id number] Timeline: magdalena Almanza CPhT (Dee) Lead [facility] Neurology/Cardiology/Infections Disease [facility] P: F: [facility] 02-25-2025 Instructions Lolita Jain PA-C - [...] prescription for Forteo (teriparatide) injections to the [facility] pharmacy they will reach out regarding shipment Follow up 3 months documented in this encounter [facility] 02-25-2025 History of Present illness Narrative Images from the original note were not included. Osteoporosis and Metabolic Bone Disease CONSULTATION Referring Provider: Jayant Jimenez Date of Service: 02/25/2025 Gender: female Ethnicity: White Age: [age] year old Chief Complaint: New Patient Last Rheumatology visit: None at [facility] Katheryn Chino is a 79 [...] years, Gender: Female SCANNER INFORMATION: DXA Model: [employer] - Vital Connect [id number] Date Scanned: 11/26/2024 11:08 AM CLINICAL HISTORY: DIAGNOSTIC 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 osteoporosis snf (current) use of other agents affecting estrogen [...] had a previous bone density in the [facility] or the previous bone density was performed on a different DXA machine (new, updated model or different location) within the [facility]. VERTEBRAL FRACTURE ASSESSMENT Not performed. TRABECULAR BONE [...] www.nof.org International Society of Clinical Densitometry www.iscd.org Unit Director: SUNSHINE Transcribe Date/Time: Nov 29 2024 2:05P [...] mg/spray (0.1 mL) nasal spray Use 1 [place] in the nose as needed for seizures [...] units per day Plan The recommendation is 6600-0728 mg of calcium daily between diet and [...] which included preparing to see the patient, cpmq-da-riis patient care, completing clinical documentation, obtaining and/or reviewing separately obtained history, performing a medically appropriate examination, counseling and educating the patient/family/caregiver, ordering medications, tests, or procedures, and communicating results to the patient/family/caregiver. Lolita Jain PA-C cc: PCP: Orville Mendoza [address] [place], [place] [id number] documented in this encounter [facility] 02-25-2025 Note HNO ID: [id number] Author: LOLITA JAIN PA-C Service: ? Author Type: Physician Burner Shaft Type: Progress Notes Filed: 02/25/2025 16:03 Note Text: Osteoporosis and Metabolic Bone Disease CONSULTATION Referring Provider: Jayant Jimenez Date of Service: 02/25/2025 Gender: female Ethnicity: White Age: [age] year old Chief Complaint: New Patient Last Rheumatology visit: None at [facility] Katheryn Chino is a 79 [...] OF EXAM: Nov 26 2024 11:08AM AWX 08Berna - BD DXA - AXIAL SKELETON / PROCEDURE REASON: multiple diagnoses * * * * Physician Interpretation * * * * EXAMINATION: DXA BONE DENSITOMETRY BD DXA - AXIAL SKELETON, BD DXA TRABECLR BONE SCORE (TBS) PATIENT DEMOGRAPHICS: Age: 79 years, Gender: Female SCANNER INFORMATION: DXA Model: [employer] [id number] Date Scanned: 11/26/2024 11:08 AM CLINICAL HISTORY: DIAGNOSTIC 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 osteoporosis snf (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 VERTEBRAL FRACTURE ASSESSMENT Not performed. TRABECULAR [...] should not replace (more content not included)... [facility] 01-16-2025 Telephone encounter Note The following approved medication requests have been transmitted electronically. Requested Prescriptions Signed Prescriptions Disp Refills lacosamide (VIMPAT) 100 mg tab 90 tablet 1 Sig: Take 1 tablet by mouth every morning for 180 days. Authorizing Provider: MAYDA HOWARD PA-C PDMP website checked and validated. All prescriptions have been APPROPRIATELY filled. No suspicious activity was identified. 01/16/2025 by Mayad Howard PA-C [facility] 01-16-2025 Miscellaneous Notes The following [...] Medication Concern Person Calling Katia Nurse from custodial Name of medication Lacosamide Concern with medication They have Katheryn taking 100MG in the morning and 50 mg at night. Per yesterdays appointment it states 150mg at time time. What one should they do ? Patient of Dr. Jimenez documented in this encounter [facility] 01-16-2025 Telephone encounter Note 01/15/2025 [...] to be sent in. Sandra Casey RN [facility] 01-16-2025 Telephone encounter Note Medication Concern Person Calling [facility]ia Nurse from custodial Name of medication Lacosamide Concern with medication They have Katheryn taking 100MG in the morning and 50 mg at night. Per yesterdays appointment it states 150mg at time time. What one should they do ? Patient of Dr. Jimenez [facility] 01-15-2025 Note HNO ID: [id number] Author: JAYANT JIMENEZ MD Service: ? Author Type: Physician Type: Progress Notes Filed: 01/15/2025 08:54 Note Text: [facility] Patient Name: Katheryn Chino Date of : 1945 ESTABLISHED EPILEPSY CLINIC NOTE 01/15/2025 8:00 AM Reason for Visit: Follow Up and Epilepsy Clinical Summary: Ms. Chino is a 79 year old female seen in [facility]. At today's visit, [...] with AEDs . She moved to a [place] and she has more suervison with AEDs now. 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 She had good seizure control for a few years until covid. Hospitaltization in Aug 2024 for a prolonged GTCS at the facility ( brother reports it lasted ~ 25 mins). Admitted to [facility] where Dilantin and Depakote levels were low. [...] nasal spray (Taking As Needed) Use 1 [place] in the nose as needed for seizures [...] Hospital 01-15-2025 History of Present illness Narrative [facility] Patient Name: Katheryn Chino Date of : 1945 ESTABLISHED EPILEPSY CLINIC NOTE 01/15/2025 8:00 AM Reason for Visit: Follow Up and Epilepsy Clinical Summary: Ms. Chino is a 79 year old female seen in [facility]. At today's visit, [...] with AEDs . She moved to a [place] and she has more suervison with AEDs now. 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 She had good seizure control for a few years until covid. Hospitaltization in Aug 2024 for a prolonged GTCS at the facility ( brother reports it lasted ~ 25 mins). Admitted to [facility] where Dilantin and Depakote levels were low. [...] nasal spray (Taking As Needed) Use 1 [place] in the nose as needed for seizures [...] - Seizure risk factors: Brain Tumor Unanswered PICK UP Infections Unanswered Developmental Delay Unanswered Family history [...] mg/spray (0.1 mL) nasal spray Use 1 [place] in the nose as needed for seizures [...] Breast Cancer Mother SOCIAL HISTORY: -Lives in [place], [place] -Patient lives alone? -Vocation: -Education: -Cigarette, [...] impaired coordination greater on the right on [id number] testing Postural and action tremor in both [...] precautions - No driving in the state [facility] until seizure free for 6 [...] which included: preparing to see the patient [id number] patient care completing clinical documentation obtaining and/or reviewing separately obtained history performing a medically appropriate examination counseling and educating the patient/family/caregiver ordering medications, tests, or procedures Jayant Jimenez MD cc: Primary Care Physician: Orville Mendoza, [address] [place] [address] Referring: Patient: Ms. Katheryn Chino [id number] [phone] documented in this encounter [facility] 01-15-2025 Instructions Jayant Jimenez MD [...] precautions - No driving in the state [facility] until seizure free for 6 [...] factor. Jayant Jimenez MD Associate Staff, Epilepsy [facility] January 15, 2025 Office phone: [phone] documented in this encounter [facility] 12-24-2024 Telephone encounter Note The following approved medication requests have been transmitted electronically. Requested Prescriptions Signed Prescriptions Disp Refills diazePAM (VALTOCO) 10 mg/spray (0.1 mL) nasal spray 2 Each 1 Sig: Use 1 [place] in the nose as needed for seizures lasting longer than 3 minutes. May repeat dose once after 4 hours based on response and tolerability for a maximum of 2 doses per 24-hour period. Authorizing Provider: ARTIS HAMILTON APRN.CNP [facility] 12-24-2024 Miscellaneous Notes The following approved medication requests have been transmitted electronically. Requested Prescriptions Signed Prescriptions Disp Refills diazePAM (VALTOCO) 10 mg/spray (0.1 mL) nasal spray 2 Each 1 Sig: Use 1 [place] in the nose as needed for seizures [...] Medication Concern Person Calling Rosita Cornejo, from [facility], ask for Pat's nurse Name of medication Nayzilam Concern with medication Nurse states the medication did not work the last time the patient had a seizure. Wants to know if another rescue medication can be prescribed instead. Patient of Dr. Jimenez documented in this encounter [facility] 12-24-2024 Telephone encounter Note We can trial Valtoco KLP ODT takes much longer to work [facility] 12-24-2024 Telephone encounter Note See 12/23/24 phone encounter. Silvia Rogers RN [facility] 12-24-2024 Miscellaneous Notes See 12/23/24 phone encounter. Silvia Rogers RN Level WNL If she has not had further seizures since reaching 100/150 of LCM can continue dose unchanged, any seizures would increase to 150/150 Artis Hamilton APRN.GROUNDS SUPERVISOR Images from the original note were not included. Current LCM dose 100/150 Forwarded to MARIO 2 pool for review. Silvia Rogers RN OUTSIDE LAB REPORT FACILITY NAME [facility] PHONE/FAX COLLECTION DATE AND TIME: 12/15/24 540 Uploaded to [employer] [place] [employer] documented in this encounter [facility] 12-24-2024 Telephone encounter Note Spoke with nurse Rosita at [facility]. See 12/23/24 encounter. Silvia Rogers RN [facility] 12-24-2024 Miscellaneous Notes Spoke with nurse Becker at [facility]. See 12/23/24 encounter. Silvia Rogers RN ORDERS Person requesting order: [facility] Phone number: [phone] Order being requested: Facility: [facility] Patient of Dr. Jimenez Forwarded to Nurse documented in this encounter [facility] 12-24-2024 Telephone encounter Note Spoke [...] MARIO 2 for review. Silvia Rogers RN [facility] 12-24-2024 Telephone encounter Note ORDERS Person requesting order: [facility] Phone number: [phone] Order being requested: Facility: [facility] Patient of Dr. Jimenez Forwarded to Nurse [facility] 12-23-2024 Telephone encounter Note Medication Concern Person Calling Rosita Cornejo, from [facility], ask for Pat's nurse Name of medication Nayzilam Concern with medication Nurse states the medication did not work the last time the patient had a seizure. Wants to know if another rescue medication can be prescribed instead. Patient of Dr. Jimenez [facility] 12-19-2024 Telephone encounter Note Level WNL If she has not had further seizures since reaching 100/150 of LCM can continue dose unchanged, any seizures would increase to 150/150 Artis Hamilton APRN.GROUNDS SUPERVISOR [facility] 12-19-2024 Telephone encounter Note Images from the original note were not included. Current LCM dose 100/150 Forwarded to [facility] [employer] [place] for review. Silvia Rogers RN [facility] 12-19-2024 Telephone encounter Note OUTSIDE LAB REPORT FACILITY NAME [facility] PHONE/FAX COLLECTION DATE AND TIME: 12/15/24 540 Uploaded to [place] [employer] [facility] 12-08-2024 Plan of care note Problem: Knowledge [...] Interventions Goal: Assess Nutritional Intake Outcome: Completed [facility] 12-08-2024 Plan of care note Problem: Knowledge [...] Interventions Goal: Assess Nutritional Intake Outcome: Completed [facility] 12-08-2024 Miscellaneous Notes Problem: Knowledge Deficit Goal: [...] med list transmitted to SNF [facility]. Transport requested in Roundtrip. Awaiting time confirmation. Confirmed pickup time of 3:00 by transport [employer] at phone number . Location of facility drop off is [facility]. Facility notified via [facility], Martine Glasgow notified on secure chat. Pt is stable for DC to return to [facility]. [facility] tasked to arrange transport and to send DC notes/MAR to SNF. Transport arranged for 3:00 today. Pt's brother called, Danny [phone], updates given. Problem: Knowledge Deficit Goal: Patient/family/caregiver [...] and discharge instructions 12/06/2024514 by Maria Victoria Zpaata RN Outcome: Progressing 12/06/2024 0018 by Maria Victoria Zapata RN Outcome: Progressing Problem: Potential for Compromised Skin Integrity Goal: Skin Integrity is Maintained or Improved 12/06/202415 by Maria Victoria Zapata RN Outcome: Progressing 12/06/2024 0018 by Maria Victoria Zapata RN Outcome: Progressing Goal: Nutritional status is improving 12/06/202415 by Maria Victoria Zapata RN Outcome: Progressing 12/06/2024 0018 by Maria Victoria Zapata RN Outcome: Progressing Problem: Urinary Incontinence Goal: Perineal skin integrity is maintained or improved 12/06/202415 by Maria Victoria Zapata RN Outcome: Progressing [...] or improved Outcome: Progressing Pt adm from [facility] SNF/LTC, with Sepsis 2nd to UTI. Plan is to return. Facility will adm pt back skilled under Medicare. Called pt's brother Danny [phone] was called and updated. CM to follow. [...] 12-04-24 during interdisciplinary rounds. Pt admitted from [facility] due to seizures. Pt has a history of seizure disorder. No needs anticipated but SW available as needs arise. documented in this encounter [facility] 12-08-2024 Note Formatting of this n ote might be different from the original. MAR & Discharge med list transmitted to [facility] Return - [facility] via [facility] per TCC request. [facility] 12-08-2024 Note Formatting of this n ote might be different from the original. MAR & Discharge med list transmitted to [facility] Return [facility] via [facility] per TCC request. [facility] 12-08-2024 Note Formatting of this n ote might be different from the original. Transport requested in Roundtrip. Awaiting time confirmation. Confirmed pickup time of 3:00 by transport [employer] at phone number . Location of facility drop off is [facility]. Facility notified via Martine Arriaza notified on secure chat. [facility] 12-08-2024 Note Formatting of this n ote might be different from the original. Transport requested in [employer]trip. Awaiting time confirmation. Confirmed pickup time of 3:00 by transport company [employer] at phone number . Location of facility drop off is [facility]. Facility notified via Martine Arriaza notified on secure chat. [facility] 12-08-2024 Note Formatting of this n ote might be different from the original. Pt is stable for DC to return to [facility] SNF. [employer] tasked to arrange transport and to send DC notes/MAR to SNF. Transport arranged for 3:00 today. Pt's brother called, Danny [phone], updates given. [facility] 12-08-2024 Note Formatting of this n ote might be different from the original. Pt is stable for DC to return to [facility] SNF. [employer] tasked to arrange transport and to send DC notes/MAR to SNF. Transport arranged for 3:00 today. Pt's brother called, Danny [phone], updates given. [facility] 12-08-2024 Note Hospitalist Discharg e Summary Katheryn Chino : 1945 Admit date: 12/03/2024 Discharge date: 12/08/2024 Admitting Physician: Fazal Garza MD Primary Care Physician: Orville Mendoza DO Visit Status: inpt Code Status: Full Code BRIEF HOSPITAL COURSE: Katheryn is a 79 y.o. Presenting from [place] for breakthrough seizure, Was found to meet [...] 10 MEQ ER (more content not included)... [facility] 12-08-2024 Hospital course Narrative Images from the original note were not included. Hospitalist Discharge Summary Katheryn Chino : 1945 Admit date: 12/03/2024 Discharge date: 12/08/2024 Admitting Physician: Fazal Garza MD Primary Care Physician: Orville Mendoza DO Visit Status: inpt Code Status: Full Code BRIEF HOSPITAL COURSE: Katheryn is a 79 y.o. Presenting from [place] for breakthrough seizure, Was found to meet [...] 01/27/2020 Peptic ulcer disease 01/27/2020 Seizure disorder ([facility]) 01/27/2020 Hospital Course: See discharge diagnoses list [...] Rate (L/min): 2 L/min LABS: Recent Labs 12/06/2445312/07/2451812/08/24 0358 NA 141 142 140 K 3.7 3.9 3.9 CL 110* 110* 108* CO2 BUN 12 12 10 CREATININE 0.64 0.64 0.64 GLUCOSE 87 90 87 CALCIUM 8.8 9.0 8.7* Recent Labs 12/06/2445312/07/2451812/08/24 035 WBC 5.3 6.1 5.9 RBC 3.66* 3.70* [...] Complexity: follow up within 7-14 calendar days (87241) [x] Severe Complexity: follow up within 7 calendar days (38537) Follow up Testing, Pending results or Referrals [...] Denise Hair DO Division of Hospitalist Medicine [facility] 12/08/2024, 11:02 AM documented in this encounter [facility] 12-08-2024 Hospital Discharge instructions Martine Glasgow [...] Emergency Contact: Danny Chino Mobile Relation: Brother Cocoa Bean Roaster needed? No Past Surgical History: No past [...] assistance Toileting Total assistance Feeding Minimal assistance Biomathematician Minimal assistance Med Delivery yes Wound Care [...] Date: 12/03/2024 [facility] Address: [address] [place] [address] Fax: Dialysis Facility (if applicable) Name: [facility] Address: Dialysis Schedule: Phone: Fax: [employer] Operator/C[employer] Driver signature: ICIAN SECTION Name: Katheryn Chino Prognosis: good Condition at Discharge: stable Rehab Potential (if transferring to Rehab): good Recommended Labs or Other Treatments After Discharge: bmp, cbc 1 week The individual is being admitted to a nursing facility directly from an [facility] or a unit of a hospital that is not operated by or licensed by [facility] under section 5119.14 or 5160-3-15.1 5 The individual requires the level of services provided by a nursing facility for the condition for which he or she was treated in the hospital and, Physician Certification: I certify the above information and transfer of Katheryn Chino is necessary for the continuing treatment of the diagnosis listed and that she requires residential facility for less than 30 days. Update Admission H&P: No change in H&P PHYSICIAN SIGNATURE: documented in this encounter [facility] 12-08-2024 Plan of care note Problem: [...] Interventions Goal: Assess Nutritional Intake Outcome: Progressing [facility] 12-07-2024 Note Hospitalist Progress Note 12/07/2024 Subjective: Admit Date: 12/03/2024 PCP: Orville Mendoza DO Room#: N3-358/[id number] A BRIEF HOSPITAL COURSE: Katheryn is a 79 y.o. Presenting from [place] for breakthrough seizure, Was found to meet [...] PLT 148 158 169 BMP: Recent Labs 12/05/2444312/06/2445312/07/24 05 NA 141 141 142 K 3.8 3.7 [...] enoxaparin and enco (more content not included)... [facility] 12-07-2024 History of Present illness Narrative Hospitalist Progress Note 12/07/2024 Subjective: Admit Date: 12/03/2024 PCP: Orville Mendoza, DO Room#: N3-358/[id number] A BRIEF HOSPITAL COURSE: Katheryn is a 79 y.o. Presenting from [place] for breakthrough seizure, Was found to meet [...] Emergency Contact: Danny Chino Mobile Relation: Brother Cocoa Bean Roaster needed? No Denise Hair DO Division of Hospitalist Medicine [facility] Hospitalist Progress Note 12/06/2024 Subjective: Admit Date: 12/03/2024 PCP: Orville Mendoza DO Room#: N3-358/[id number] A BRIEF HOSPITAL COURSE: Katheryn is a 79 y.o. Presenting from [place] for breakthrough seizure, Was found to meet [...] 01/27/2020 Peptic ulcer disease 01/27/2020 Seizure disorder ([facility]) 01/27/2020 LABS: CBC: Recent Labs 12/04/24 0537 [...] Primary Emergency Contact: ClaritaleDanny Mobile Relation: Brother Cocoa Bean Roaster needed? No Denise Hair DO Division of Hospitalist Medicine [facility] Nutrition Assessment Type and Reason [...] (appropriate for age) Fluid Accumulation: Mild Extremities Aerospace Engineer Officer Armament Strength: Not Performed Nutrition Assessment: 79 y.o. female presented from [place] for breakthrough seizure, Was found to meet [...] On: Kcal/kg Weight Used for Energy Requirements: [place] Weight for Energy Calculation (kg): 52 kg Total Energy Requirements (kcals/day): 4911-5461 (25-30) Weight Used for Protein Requirements: [place] Weight in Kg Used for Protein Requirements: 52 kg Estimated Total Protein (g/day): 52-62 (1.0-1.2) Estimated Daily Total Fluid (ml/day): per MD Nutrition Related Findings: Lives with: Other (Comment) ([facility]), Orientation Level: Oriented X4, Cognition: [...] meals on 12/05 and x1 meal on 2/20) Average Supplements Intake: None Ordered Anthropometric Measures: Height: 160 cm (5' 3") Admission Body Weight: 81.2 kg (179 lb) (estimated) Usual Body Weight: 81.6 kg (180 lb) (09/24/24 per review of OP notes) [place] Body Weight (lbs) (Calculated): 115 lbs [place] Body Weight (Kg) (Calculated): 52 kg Wt [...] determine Jacki Franco MS RD LD Contact: Zokos or *[phone] Nutrition rescreen completed. Patient referred to the Dietitian due to wound consult for pressure injury. [facility] Hospitalist Progress Note 12/05/2024 Subjective: Admit Date: 12/03/2024 PCP: Orville Mendoza DO Room#: N3-351/N3-351 A BRIEF HOSPITAL COURSE: Katheryn is a 79 y.o. Presenting from [place] for breakthrough seizure, Was found to meet [...] Emergency Contact: Danny Chino Mobile Relation: Brother Cocoa Bean Roaster needed? No Denise Hair DO Division of Hospitalist Medicine [facility] General Neurology Follow-up Date of [...] precautions - Already established with neurology through [facility], so can follow-up with them [...] known history of generalized epilepsy-EEG unlikely to exchange trouble shooter at this time -Some confusion about her [...] Denise Hair D.O. Division of Hospitalist Medicine [facility] Images from the original note were not included. OCCUPATIONAL THERAPY [facility] Initial Evaluation Name/MRN: Katheryn Chino ([id number]) Evaluation Date: 12/04/2024 Date of : 1945 Admission Date: 12/03/2024 6:35 PM Age: 79 y.o. Room/Bed: [facility] A Discharge Recommendation: Home with [...] Class I, BMI 30-34.9 08/18/2024 Breakthrough seizure ([facility]) ([facility]) 08/17/2024 Dysarthria 08/07/2018 Ataxia 08/07/2018 Depression 10/26/2020 Cerebellar degeneration ([facility]) ([facility]) 10/26/2020 Other specified hypothyroidism 01/27/2020 Seizure disorder ([facility]) ([facility]) 01/27/2020 Peptic ulcer disease 01/27/2020 Dependent edema [...] AxOx self and hospital Social/Functional History From [facility] and has been there for 11.5 [...] of Care supervision is transferred to a [facility] Services Occupational Therapist. Goals and/or treatment plan was established in collaboration with patient/family/other representatives. Mary Morataya OTR/L Images from the original note were not included. PHYSICAL THERAPY [facility] Initial Evaluation Name/MRN: Katheryn Chino ([id number]) Evaluation Date: 12/04/2024 Date of : 1945 [...] and mod of [facility]. Plan is to return to [facility]. Admitting Diagnosis: Sepsis due to UTI, [...] 01/27/2020 Peptic ulcer disease 01/27/2020 Seizure disorder ([facility]/H[facility]) 01/27/2020 Past Surgical History: No past surgical history on file. Admission Diagnosis: Patient Active Problem List Diagnosis Date Noted Sepsis due to urinary tract infection ([facility]) 12/03/2024 Obesity, Class I, BMI 30-34.9 08/18/2024 Breakthrough seizure (CMS/HCC) ([facility]) 08/17/2024 Dysarthria 08/07/2018 Ataxia 08/07/2018 Depression 10/26/2020 Cerebellar degeneration (CMS/HCC) ([facility]) 10/26/2020 Other specified hypothyroidism 01/27/2020 Seizure disorder (CMS/HCC) ([facility]) 01/27/2020 Peptic ulcer disease 01/27/2020 Dependent edema [...] issues noted Hearing: normal Social/Functional History From [facility] and has been there for 11.5 [...] of Care supervision is transferred to a [facility] Physical Therapist. Goals and/or treatment plan was established in collaboration with patient/family/other representatives. documented in this encounter [facility] 12-07-2024 Plan of care note Problem: [...] Interventions Goal: Assess Nutritional Intake Outcome: Progressing [facility] 12-06-2024 Note Hospitalist Progress Note 12/06/2024 Subjective: Admit Date: 12/03/2024 PCP: Orville Mendoza, DO Room#: N3-358/N3-358 A BRIEF HOSPITAL COURSE: Katheryn is a 79 y.o. Presenting from [place] for breakthrough seizure, Was found to meet [...] 01/27/2020 Peptic ulcer disease 01/27/2020 Seizure disorder ([facility]) 01/27/2020 LABS: CBC: Recent Labs 12/04/24 0537 [...] 6 9 7 LIVER PROFILE: Recent Labs 12/03/240 AST 31 ALT 14 BILITOT 0.5 ALKPHOS [...] posing a threat (more content not included)... 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 female presented from [place] for breakthrough seizure, Was found to meet [...] On: Kcal/kg Weight Used for Energy Requirements: [place] Weight for Energy Calculation (kg): 52 kg Total Energy Requirements (kcals/day): 7206-8657 (25-30) Weight Used for Protein Requirements: [place] Weight in Kg Used for Protein Requirements: 52 kg Estimated Total Protein (g/day): 52-62 (1.0-1.2) Estimated Daily Total Fluid (ml/day): per MD Nutrition Related Findings: Lives with: Other (Comment[facility]), Orientation Level: Oriented X4, Cognition: Follows [...] lb) (09/24/24 per review of OP notes) [place] Body Weight (lbs) (Calculated): 115 lbs [place] Body Weight (Kg) (Calculated): 52 kg Wt [...] greater, by n (more content not included)... [facility] 12-06-2024 Plan of care note Problem: [...] by Maria Victoria Zapata RN Outcome: Progressing [facility] 12-06-2024 Plan of care note Problem: Knowledge Deficit Goal: Patient/family/caregiver demonstrates understanding of disease process, treatment plan, medications, and discharge instructions Outcome: Progressing Problem: Potential for Compromised Skin Integrity Goal: Skin Integrity is Maintained or Improved Outcome: Progressing Goal: Nutritional status is improving Outcome: Progressing Problem: Urinary Incontinence Goal: Perineal skin integrity is maintained or improved Outcome: Progressing [facility] 12-05-2024 Note Formatting of this n ote might be different from the original. Pt adm from [facility] SNF/LTC, with Sepsis 2nd to UTI. Plan is to return. Facility will adm pt back skilled under Medicare. Called pt's brother Danny, was called and updated. CM to follow. [facility] 12-05-2024 Note Formatting of this n ote might be different from the original. Pt adm from [facility] SNF/LTC, with Sepsis 2nd to UTI. Plan is to return. Facility will adm pt back skilled under Medicare. Called pt's brother Danny, was called and updated. CM to follow. [facility] 12-05-2024 Telephone encounter Note Updated LCM 150mg BID rx faxed via [facility] to [facility]. Confirmation received. Silvia Rogers RN [facility] 12-05-2024 Miscellaneous Notes Updated LCM 150mg BID rx faxed via [employer] to [facility]. Confirmation received. Silvia Rogers RN The following approved medication requests have been transmitted electronically. Requested Prescriptions Signed Prescriptions Disp Refills lacosamide (VIMPAT) 150 mg tab 180 tablet 1 Sig: Take 1 tablet by mouth two times a day for 180 days. Authorizing Provider: ARTIS HAMILTON APRN.GROUNDS SUPERVISOR Spoke with nurse Katia at [facility]. Informed her of recommendations to increase LCM to 150mg BID, with read back. Nurse requests rx to be faxed to the facility. [facility] PH: [phone] FAX : [phone] Silvia M Kunovich, RN Called the patient's facility. Left message for the nurse to call back regarding recommendations. Silvia Rogers RN If no clear triggers will likely need to adjust doses. Would consider further increasing LCM to 150 mg BID Artis Hamilton APRN.GROUNDS SUPERVISOR Seizure Call - spoke with nurse Inman. [facility] PH: [phone] FAX : [phone] Last Visit: 09/24/24 Next Visit: 01/15/25 Date [...] Other: patient was taken to local ED, [facility]. The patient will be transferred to [...] from the hospital. Forwarded to MARIO 2 [place] Silvia Rogers RN Received patients seizure monitoring sheet from [facility]. Uploaded to [place] [employer] documented in this encounter [facility] 12-05-2024 Note Hospitalist Progress Note 12/05/2024 Subjective: Admit Date: 12/03/2024 PCP: Orville Mendoza DO Room#: N3-351/N3-351 A BRIEF HOSPITAL COURSE: Katheryn is a 79 y.o. Presenting from [place] for breakthrough seizure, Was found to meet [...] disorder (CMS/HCC) 01/27/2020 LABS: CBC: Recent Labs 12/03/24 1940 [...] a threat t (more content not included)... [facility] 12-05-2024 Plan of care note Problem: Knowledge Deficit Goal: Patient/family/caregiver demonstrates understanding of disease process, treatment plan, medications, and discharge instructions Outcome: Progressing Problem: Potential for Compromised Skin Integrity Goal: Skin Integrity is Maintained or Improved Outcome: Progressing Goal: Nutritional status is improving Outcome: Progressing Problem: Urinary Incontinence Goal: Perineal skin integrity is maintained or improved Outcome: Progressing [facility] 12-04-2024 Telephone encounter Note The following approved medication requests have been transmitted electronically. Requested Prescriptions Signed Prescriptions Disp Refills lacosamide (VIMPAT) 150 mg tab 180 tablet 1 Sig: Take 1 tablet by mouth two times a day for 180 days. Authorizing Provider: ARTIS HAMILTON APRN.GROUNDS SUPERVISOR [facility] 12-04-2024 Plan of care note Problem: Knowledge Deficit Goal: Patient/family/caregiver demonstrates understanding of disease process, treatment plan, medications, and discharge instructions Outcome: Progressing Problem: Potential for Compromised Skin Integrity Goal: Skin Integrity is Maintained or Improved Outcome: Progressing Goal: Nutritional status is improving Outcome: Progressing Problem: Urinary Incontinence Goal: Perineal skin integrity is maintained or improved Outcome: Progressing [facility] 12-04-2024 Telephone encounter Note Spoke with nurse Inman at [facility]. Informed her of recommendations to increase LCM to 150mg BID, with read back. Nurse requests rx to be faxed to the facility. [facility] PH: [phone] FAX : [phone] Silvia Rogers RN [facility] 12-04-2024 Telephone encounter Note Called the patient's facility. Left message for the nurse to call back regarding recommendations. Silvia Rogers, RN [facility] 12-04-2024 Note Formatting of this n ote might be different from the original. Pt discussed 12-04-24 during interdisciplinary rounds. Pt admitted from [facility] due to seizures. Pt has a history of seizure disorder. No needs anticipated but SW available as needs arise. [facility] 12-04-2024 Note Formatting of this n ote might be different from the original. Pt discussed 12-04-24 during interdisciplinary rounds. Pt admitted from [facility] due to seizures. Pt has a history of seizure disorder. No needs anticipated but SW available as needs arise. [facility] 12-04-2024 Note OCCUPATIONAL THERAPY [facility] Initial Evaluation Name/MRN: Katheryn Chino ([id number]) Evaluation Date: 12/04/2024 Date of : 1945 Admission Date: 12/03/2024 6:35 PM Age: 79 y.o. Room[facility]Bed: N3351[facility] Discharge Recommendation: Home with Home [...] 01/27/2020 Peptic ulcer disease 01/27/2020 Seizure disorder ([facility]) 01/27/2020 Past Surgical History: No past surgical history on file. Admission Diagnosis: Patient Active Problem List Diagnosis Date Noted Sepsis due to urinary tract infection ([facility]) 12/03/2024 Obesity, Class I, BMI 30-34.9 08/18/2024 Breakthrough seizure ([facility]) ([facility]) 08/17/2024 Dysarthria 08/07/2018 Ataxia 08/07/2018 Depression 10/26/2020 Cerebellar degeneration ([facility]) ([facility]) 10/26/2020 Other specified hypothyroidism 01/27/2020 Seizure disorder ([facility]) ([facility]) 01/27/2020 Peptic ulcer disease 01/27/2020 Dependent edema [...] AxOx self and hospital Social/Functional History From [facility] Home and has been there for 11.5 [...] Daily Activity Raw Score: 18 ADL Inpatient [facility] G-Code Modifier: CK Plan Pt would benefit from skilled acute OT services to address Strengthening, ROM, Gait Training, Balance Training, Self-Care/ADL Training, Functional Mobility Training, Endurance Training, Safety Education and Training, Pain Management, Equipment Evaluation/Education, Cognitive Reorientation, Patient/Caregiver Training, Cognitive/Perceptual Training, and Positioning. Frequency: 2x/week for 4 weeks Barriers: Long standing deficits Safety/Education Safety Safety Devic (more content not included)... [facility] 12-04-2024 Nurse Note Wound Care consulted for Pressure Injury Prevention. Pt's Melo score= 16 on 12/04 Pt's pressure points assessed. Pt sitting in chair. OT present in room and assisted pt with standing for assessment of buttocks/coccyx. Pt's Heels, Buttocks/coccyx, Back, Elbows, Occiput and ears all intact. Prevention Measures in place, including: [place] sheet with pillows, Foam heel protectors (obtained [...] or concerns. Aliza Goins RN, BSN, CWCN [facility] 12-04-2024 Nurse Note Wound Care consulted for Pressure Injury Prevention. Pt's Melo score= 16 on 12/04 Pt's pressure points assessed. Pt sitting in chair. OT present in room and assisted pt with standing for assessment of buttocks/coccyx. Pt's Heels, Buttocks/coccyx, Back, Elbows, Occiput and ears all intact. Prevention Measures in place, including: [place] sheet with pillows, Foam heel protectors (obtained [...] RN, BSN, CWCN documented in this encounter [facility] 12-04-2024 Note PHYSICAL THERAPY [facility] Initial Evaluation Name/MRN: Katheryn Chino ([id number]) Evaluation Date: 12/04/2024 Date of : 1945 [...] and [facility] Plan is to return to [facility]. Admitting Diagnosis: Sepsis due to UTI, [...] 01/27/2020 Peptic ulcer disease 01/27/2020 Seizure disorder ([facility]) 01/27/2020 Past Surgical History: No past surgical history on file. Admission Diagnosis: Patient Active Problem List Diagnosis Date Noted Sepsis due to urinary tract infection ([facility]) 12/03/2024 Obesity, Class I, BMI 30-34.9 08/18/2024 Breakthrough seizure ([facility]) ([facility]) 08/17/2024 Dysarthria 08/07/2018 Ataxia 08/07/2018 Depression 10/26/2020 Cerebellar degeneration ([facility]) ([facility]) 10/26/2020 Other specified hypothyroidism 01/27/2020 Seizure disorder ([facility]) ([facility]) 01/27/2020 Peptic ulcer disease 01/27/2020 Dependent edema [...] issues noted Hearing: normal Social/Functional History From [facility] and has been there for 11.5 [...] Raw Score (No Stairs) : 11 [facility] Score: Transferred to chair/commode Plan Pt would benefit from skilled acute PT services to address Strengthening, ROM, Balance Training, Functional Mobility Training, Endurance Training, Home Management Training, Patient/Caregiver Training, and (gait only if pt willing) . Frequency: 3x/week for 2 weeks Barriers: Impaired balance, Lower extremity weakness, Decreased endurance, Long (more content not included)... [facility] 12-04-2024 Consult note Associated Order (s): IP CONSULT TO NEUROLOGY General Neurology Consult Patient: Katheryn Chino Date of : 1945 Acct: [id number] PCP: Orville Mendoza DO Date of Admission: 12/03/2024 Date of Service: Pt seen/examined on 12/04/24 Chief Complaint: Breakthrough seizure History Of Present Illness: 79 y.o. female with past medical history significant for idiopathic generalized epilepsy (since childhood), cerebellar atrophy (on MRI in 2018, thought to be 2/2 chronic Dilantin use), wheelchair dependence, chronic dysarthria, hypothyroidism who presented from [facility] to [facility] 12/03 with complaint of breakthrough seizure. Patient follows with Dr. Jimenez from [facility] and has been having generalized tonic-clonic seizures and absence seizures since age [age]. Current AED regimen is supposed to be VPA 250mg TID, LCM 100mg BID, and ethosuximide 250mg BID. The patient is not able to provide any history from yesterday and denies any complaints at present. Per history obtained from RN at [facility] who witnessed event, it occurred yesterday morning [...] antibiotics. Social History: The patient currently lives [facility] Occupation None Drives: No TOBACCO: reports that [...] and change in bowel habits (RN from SNF does report episode of emesis two days [...] at endpoints Left: Mild ataxia at endpoints Oedd-Jieg-Rphh Right: normal Left: normal Rapid Alternating Movements [...] last outpatient neurology note and MAR from [facility], so will average the two) - LCM continue 100mg qAM and increase nightly dose to 150mg - Will discontinue phenytoin as patient had stopped this medication as outpatient - Will need repeat AED levels in one week. Already established with neurology through [facility], so can follow-up with them as outpatient. - Low threshold for LP if other infectious work-up unrevealing or patient clinically worsens. Cosigned by Susan Reyes MD at 12/04/2024 3:20 PM EST Associated attestation - Deoras, Susan S, MD - 12/04/2024 3:20 PM EST I [...] tremors sensation: intact to light touch cerebellar: [id number]-fn-kdmr slow but intact gait: deferred secondary to [...] known history of generalized epilepsy-EEG unlikely to exchange trouble shooter at this time -Some confusion about her [...] or meningismus -Will continue to monitor for PICK UP infectious symptoms I spent total time 80 minutes reviewing previous notes, test results, and face to face with the patient discussing the diagnosis and importance of compliance with the treatment plan as well as documenting on the day of the visit. [facility] 12-04-2024 Consult note Associated Order (s): IP CONSULT TO NEUROLOGY General Neurology Consult Patient: Katheryn Chino Date of : 1945 Acct: [id number] PCP: Orville Mendoza DO Date of Admission: 12/03/2024 Date of Service: Pt seen/examined on 12/04/24 Chief Complaint: Breakthrough seizure History Of Present Illness: 79 y.o. female with past medical history significant for idiopathic generalized epilepsy (since childhood), cerebellar atrophy (on MRI in 2018, thought to be 2/2 chronic Dilantin use), wheelchair dependence, chronic dysarthria, hypothyroidism who presented from [facility] to [facility] 12/03 with complaint of breakthrough seizure. Patient follows with Dr. Jimenez from [facility] and has been having generalized tonic-clonic seizures and absence seizures since age [age]. Current AED regimen is supposed to be VPA 250mg TID, LCM 100mg BID, and ethosuximide 250mg BID. The patient is not able to provide any history from yesterday and denies any complaints at present. Per history obtained from RN at [facility] who witnessed event, it occurred yesterday morning [...] antibiotics. Social History: The patient currently lives [facility] Occupation None Drives: No TOBACCO: reports that [...] and change in bowel habits (RN from [facility] does report episode of emesis two days [...] at endpoints Left: Mild ataxia at endpoints Tcnj-Qjxv-Aqlv Right: normal Left: normal Rapid Alternating Movements [...] last outpatient neurology note and MAR from [facility], so will average the two) - LCM continue 100mg qAM and increase nightly dose to 150mg - Will discontinue phenytoin as patient had stopped this medication as outpatient - Will need repeat AED levels in one week. Already established with neurology through [facility], so can follow-up with them [...] cognitive impairment, chronic dysarthria, hypothyroidism presents from [facility] with breakthrough seizure in the setting of [...] tremors sensation: intact to light touch cerebellar: xywrla-fo-bzcz slow but intact gait: deferred secondary to [...] known history of generalized epilepsy-EEG unlikely to exchange trouble shooter at this time -Some confusion about her [...] or meningismus -Will continue to monitor for PICK UP infectious symptoms I spent total time 80 minutes reviewing previous notes, test results, and face to face with the patient discussing the diagnosis and importance of compliance with the treatment plan as well as documenting on the day of the visit. documented in this encounter [facility] 12-04-2024 History and physical note Attending History and Physical Admit Date: 12/03/2024 PCP: Orville Mendoza DO CHIEF COMPLAINT: Breakthrough seizure Reason for Admission: Sepsis criteria 2/2 UTI as suspected source History Obtained From: patient HISTORY OF PRESENT ILLNESS: Katheryn is a 79 y.o. female with past medical history below who presents with chief complaint listed above. Presenting from [place] for breakthrough seizure, Was found to meet [...] Insecurity: No Food Insecurity (08/18/2024) Received from [facility] Hunger Vital Sign Worried About Running Out of Food in the Last Year: Never true Ran Out of Food in the Last Year: Never true Transportation Needs: No Transportation Needs (08/18/2024) Received from [facility] PRAPARE - Transportation Lack of Transportation (Medical): No Lack of Transportation (Non-Medical): No Physical Activity: Not on file Stress: Not on file Social Connections: Not on file Intimate Partner Violence: Not on file Housing Stability: Low Risk (08/18/2024) Received from [facility] Housing Stability Vital Sign Unable [...] Emergency Contact: Danny Chino Mobile Relation: Brother Cocoa Bean Roaster needed? No Fazal Garza MD Division of Hospital Medicine Inpatient Medical Services/[facility] 12-04-2024 Note Attending History an d Physical Admit Date: 12/03/2024 PCP: Orville Mendoza DO CHIEF COMPLAINT: Breakthrough seizure Reason for Admission: Sepsis criteria 2/2 UTI as suspected source History Obtained From: patient HISTORY OF PRESENT ILLNESS: Katheryn is a 79 y.o. female with past medical history below who presents with chief complaint listed above. Presenting from [place] for breakthrough seizure, Was found to meet [...] Insecurity: No Food Insecurity (08/18/2024) Received from [facility] Hunger Vital Sign Worried About Running Out of Food in the Last Year: Never true Ran Out of Food in the Last Year: Never true Transportation Needs: No Transportation Needs (08/18/2024) Received from [facility] PRAPARE - Transportation Lack of Transportation (Medical): No Lack of Transportation (Non-Medical): No Physical Activity: Not on file Stress: Not on file Social Connections: Not on file Intimate Partner Violence: Not on file Housing Stability: Low Risk (08/18/2024) Received from [facility] Housing Stability Vital Sign Unable [...] eval & mg (more content not included)... [facility] 12-04-2024 History and physical note Attending History and Physical Admit Date: 12/03/2024 PCP: Orville Mendoza DO CHIEF COMPLAINT: Breakthrough seizure Reason for Admission: Sepsis criteria 2/2 UTI as suspected source History Obtained From: patient HISTORY OF PRESENT ILLNESS: Katheryn is a 79 y.o. female with past medical history below who presents with chief complaint listed above. Presenting from [place] for breakthrough seizure, Was found to meet [...] Insecurity: No Food Insecurity (08/18/2024) Received from [facility] Hunger Vital Sign Worried About Running Out of Food in the Last Year: Never true Ran Out of Food in the Last Year: Never true Transportation Needs: No Transportation Needs (08/18/2024) Received from [facility] PRAPARE - Transportation Lack of Transportation (Medical): No Lack of Transportation (Non-Medical): No Physical Activity: Not on file Stress: Not on file Social Connections: Not on file Intimate Partner Violence: Not on file Housing Stability: Low Risk (08/18/2024) Received from [facility] Housing Stability Vital Sign Unable [...] Emergency Contact: Danny Chino Mobile Relation: Brother Cocoa Bean Roaster needed? No Fazal Garza MD Division of Hospital Medicine Inpatient Medical Services/[facility] documented in this encounter [facility] 12-03-2024 Emergency department Note Emergency Department [...] the emergency department as a transfer from [place] for breakthrough seizure. Patient reports she has [...] for clarification.) Miriam Hennessy DO Acute Care [facility] Miriam Hennessy DO 12/04/24 0003 EMERGENCY DEPARTMENT ENCOUNTER Pt Name: Katheryn Chino Birthdate 1945 Date of evaluation: 12/03/2024 ED Provider: Rancho Diamond PA-C CHIEF COMPLAINT Chief Complaint Patient presents with Seizures [facility] transfer. Pt from [facility] SNF for 38 minute witnessed seizure [...] the seizure. They did take her to [facility] where she was supposedly observed there [...] Insecurity: No Food Insecurity (08/18/2024) Received from [facility] Hunger Vital Sign Worried About Running Out of Food in the Last Year: Never true Ran Out of Food in the Last Year: Never true Transportation Needs: No Transportation Needs (08/18/2024) Received from [facility] PRAPARE - Transportation Lack of Transportation (Medical): No Lack of Transportation (Non-Medical): No Housing Stability: Low Risk (08/18/2024) Received from [facility] Housing Stability Vital Sign Unable to Pay for Housing in the Last Year: No Number of Times Moved in the Last Year: 0 Homeless in the Last Year: No SCREENINGS [place] Coma Scale Best Eye Response: Spontaneous Best Verbal Response: Confused Best Motor Response: Follows commands [place] Coma Scale Score: 14 PHYSICAL EXAM ED [...] XII are grossly intact. Normal finger-nose and znqk-zb-flex. Speech is clear and appropriate. Normal level [...] Culture. Procedure Abnormality Status --------- ------ Complete Urinalysis[[id number]] Abnormal Final result Please view results for [...] or septic shock (If yes use ".sepsiscoremeasure"): JUN- CORE MEASURE DATA SIRS Criteria Sepsis Criteria [...] Emergency Medicine Provider Rancho Diamond PA-C 12/03/24 1519 Cosigned by Miriam Hennessy DO at 12/04/2024 12:54 AM EST documented in this encounter [facility] 12-03-2024 Physician Emergency department Note Emergency [...] entirety of this encounter. In brief, Katheryn Cihno female with past medical history significant for seizure disorder, hypertension, hypothyroidism is a 79 y.o. that presents to the emergency department as a transfer from [place] for breakthrough seizure. Patient reports she has [...] for clarification.) Miriam Hennessy DO Acute Care [facility] Miriam Hennessy DO 12/04/24 0003 Communications Phone: 12-03-2024 Physician Emergency department Note EMERGENCY DEPARTMENT ENCOUNTER Pt Name: Katheryn Chino Birthdate 1945 Date of evaluation: 12/03/2024 ED Provider: Rancho Diamond PA-C CHIEF COMPLAINT Chief Complaint [facility] Pt from [facility] for 38 minute witnessed seizure [...] the seizure. They did take her to [facility] where she was supposedly observed there [...] Insecurity: No Food Insecurity (08/18/2024) Received from [facility] Hunger Vital Sign Worried About Running Out of Food in the Last Year: Never true Ran Out of Food in the Last Year: Never true Transportation Needs: No Transportation Needs (08/18/2024) Received from [facility] PRAPARE - Transportation Lack of Transportation (Medical): No Lack of Transportation (Non-Medical): No Housing Stability: Low Risk (08/18/2024) Received from [facility] Housing Stability Vital Sign Unable to Pay for Housing in the Last Year: No Number of Times Moved in the Last Year: 0 Homeless in the Last Year: No SCREENINGS [place] Coma Scale Best Eye Response: Spontaneous Best Verbal Response: Confused Best Motor Response: Follows commands [place] Coma Scale Score: 14 PHYSICAL EXAM ED [...] XII are grossly intact. Normal finger-nose and nksw-vk-rasq. Speech is clear and appropriate. Normal level [...] Culture. Procedure Abnormality Status --------- ------ Complete Urinalysis[[id number]] Abnormal Final result Please view results for these tests on the individual orders. All other labs were within normal range or not returned as of this dictation. EMERGENCY DEPARTMENT COURSE and DIFFERENTIAL DIAGNOSIS/MDM: Vitals: Vitals: 12/03/24 1839 12/03/24 1942 12/03/24202312/03/240 BP: 121/60 100/52 117/66 Pulse: 98 93 [...] Emergency Medicine Provider Rancho Diamond PA-C 12/03/24 1095 Cosigned by Miriam Hennessy DO at 12/04/2024 12:54 AM EST [facility] 12-03-2024 Telephone encounter Note If no clear triggers will likely need to adjust doses. Would consider further increasing LCM to 150 mg BID Artis Hamilton APRN.GROUNDS SUPERVISOR [facility] 12-03-2024 Telephone encounter Note Seizure Call - spoke with nurse Katia. [facility] PH: [phone] FAX : [phone] Last Visit: 09/24/24 Next Visit: 01/15/25 Date [...] Other: patient was taken to local ED, [facility]. The patient will be transferred to [...] to MARIO 2 pool Silvia Rogers RN [facility] 12-03-2024 Telephone encounter Note Received patients seizure monitoring sheet from [facility]. Uploaded to [place] [employer] [facility] 12-02-2024 Telephone encounter Note Spoke with nurse Becker from patient's facility. Informed her of message per Dr. Jimenez with read back. Informed her rheumatology consult was faxed along with DEXA scan report. Consult and DEXA report faxed via [employer] to: [facility] PH: [phone] FAX : [phone] Confirmation received. Silvia Rogers RN [facility] 12-02-2024 Miscellaneous Notes Spoke with nurse Rosita from patient's facility. Informed her of message per Dr. Jimenez with read back. Informed her rheumatology consult was faxed along with DEXA scan report. Consult and DEXA report faxed via [employer] to: [facility] PH: [phone] FAX : [phone] Confirmation received. Silvia Rogers RN Per Dr. Jimenez, This patient's bone scan showed osteoporosis. I placed a consult to Rheumatology to manage this. Can you please let the patient know. Thanks KMG ==== Silvia Rogers RN documented in this encounter [facility] 12-01-2024 Telephone encounter Note Per Dr. Jimenez, This patient's bone scan showed osteoporosis. I placed a consult to Rheumatology to manage this. Can you please let the patient know. Thanks KMG ==== Silvia Rogers RN [facility] 12-01-2024 Telephone encounter Note Provider referred patient to rheumatology. I placed into protal under ref# [id number] [facility] Work Phone: 12-01-2024 Miscellaneous Notes Provider referred patient to rheumatology. I placed into protal under ref# [id number] documented in this encounter [facility] 11-26-2024 History of Present illness [...] PATIENT PRESENTS WITH AN IMPLANTABLE OR ATTACHED UPHOLSTERY RESTORER: No RADIOLOGY DEPARTMENT: Bone Density PERIPHERAL IV DATA: Not applicable SIGNED BY: RT Nancy(R) November 26, 2024 11:04 AM documented in this encounter [facility] 11-26-2024 Note HNO ID: [id number] Author: KATIA HOWARD RT(R) Service: Radiology Author [...] PATIENT PRESENTS WITH AN IMPLANTABLE OR ATTACHED UPHOLSTERY RESTORER: No RADIOLOGY DEPARTMENT: Bone Density PERIPHERAL IV DATA: Not applicable SIGNED BY: KENDAL Cruz) November 26, 2024 11:04 AM [facility] [...] spray 2 Each 0 Sig: Use 1 [place] in the nose as needed for seizures lasting longer than 3 minutes for up to 90 days. May repeat dose in alternate nostril after 10 minutes based on response and tolerability. Authorizing Provider: ARTIS HAMILTON APRN.CNP [facility] 11-11-2024 Miscellaneous Notes The following [...] spray 2 Each 0 Sig: Use 1 [place] in the nose as needed for seizures lasting longer than 3 minutes for up to 90 days. May repeat dose in alternate nostril after 10 minutes based on response and tolerability. Authorizing Provider: ARTIS HAMILTON APRN.CNP Prescription request for alternate pharmacy. Prescriptions sent to [facility] / Please re-send to [facility] for all 3 medications Prescription Refill: Requested by: Rosita @ [facility] Please E-Scribe Caller Contact Number: [phone] Pharmacy Name: [facility] - [place], [place] Pharmacy Number: [phone] Generic/ brand: generic 30 or 90 day supply requested: 90 Last appointment: 09/24/2024 Next Appointment: none Patient of Dr. Erin Chino [id number] [address] [place] [address] documented in this encounter [facility] 11-11-2024 Telephone encounter Note Prescription request for alternate pharmacy. [facility] Please re-send to [facility] for all 3 medications Prescription Refill: Requested by: Rosita @ [facility] Please E-Scribe Caller Contact Number: [phone] Pharmacy Name: [facility] - [place], [place] Pharmacy Number: [phone] Generic/ brand: generic 30 or 90 day supply requested: 90 Last appointment: 09/24/2024 Next Appointment: none Patient of Dr. Erin Chino [id number] [address] [place] [address] [facility] 11-11-2024 Telephone encounter Note Noted. Spoke with nurse Gisella, recommendations provided per MARIO. Letter, copies of LCM, Nayzilam spray faxed to facility. See 11/10/24 phone encounter. Silvia Rogers RN [facility] 11-11-2024 Miscellaneous Notes Noted. Spoke with nurse Gisella, recommendations provided per MARIO. Letter, copies of LCM, Nayzilam spray faxed to facility. See 11/10/24 phone encounter. Silvia Rogers RN Received Seizure monitoring report from [facility]. Uploaded to [employer]. documented in this encounter [facility] 11-11-2024 Telephone encounter Note Received Seizure monitoring report from [facility]. Uploaded to [employer]. [facility] 11-11-2024 Telephone encounter Note The following approved medication requests have been transmitted electronically. Requested Prescriptions Signed Prescriptions Disp Refills midazolam (NAYZILAM) 5 mg/spray (0.1 mL) nasal spray 2 Each 0 Sig: Use 1 [place] in the nose as needed for seizures [...] the 100 mg tablet.. Authorizing Provider: ARTIS HAMILTONmide (VIMPAT) 100 mg tab 180 tablet 1 Sig: Take 1 tablet by mouth two times a day for 180 days. Authorizing Provider: ARTIS HAMILTON APRN.GROUNDS SUPERVISOR [facility] 11-11-2024 Miscellaneous Notes The following approved medication requests have been transmitted electronically. Requested Prescriptions Signed Prescriptions Disp Refills midazolam (NAYZILAM) 5 mg/spray (0.1 mL) nasal spray 2 Each 0 Sig: Use 1 [place] in the nose as needed for seizures [...] 4: LCM 100/100, stop PHT Artis Hamilton APRN.GROUNDS SUPERVISOR [facility] 09/24/24 IMPRESSION: Ms.Patricia Chino is a [...] rescue medication, nurse is requesting. Forwarded to [employer] for review. Silvia Rogers, RN Seizure activity: Name of Caller : Dimitri Becker [place] where pt resides Relationship to patient: Caregiver Contact phone number: [phone] Date of seizure: 11/07/24 Duration: 20 minutes Back to Baseline (Yes/No): yes Emergency treatment needed (Yes/No): no Patient of Dr. Jimenez documented in this encounter [facility] 11-10-2024 Telephone encounter Note Spoke with nurse, Gisella. Informed of recommendations, gave verbal of rx LCM titration, PHT wean with read back. She is requesting copy of rx sent to their facility. Silvia Rogers RN [facility] 11-10-2024 Telephone encounter Note Script [...] 4: LCM 100/100, stop PHT Artis Hamilton APRN.GROUNDS SUPERVISOR [facility] 11-10-2024 Telephone encounter Note See 11/10/24 phone encounter. Silvia Rogers RN [facility] 11-10-2024 Miscellaneous Notes See 11/10/24 phone encounter. Silvia Rogers RN General call : Full name of person calling: [facility] Relationship to patient: Phone # : Reason for call: seizure monitoring report Patient of Dr. Jimenez upload documented in this encounter [facility] 01-27-2025 Telephone encounter Note [facility] 09/24/24 IMPRESSION: Ms.Patricia [...] rescue medication, nurse is requesting. Forwarded to [employer] for review. Silvia Rogers RN [facility] 11-10-2024 Telephone encounter Note Seizure activity: Name of Caller : Dimitri Becker [place] where pt resides Relationship to patient: Caregiver Contact phone number: [phone] Date of seizure: 11/07/24 Duration: 20 minutes Back to Baseline (Yes/No): yes Emergency treatment needed (Yes/No): no Patient of Dr. Jimenez [facility] 11-07-2024 Telephone encounter Note General call : Full name of person calling: [facility] Relationship to patient: Phone # : Reason for call: seizure monitoring report Patient of Dr. Jimenez upload [facility] 09-26-2024 Telephone encounter Note Spoke with Taryn, patient's nurse - provided medication recommendations - she verbalizes understanding via teachback Sherrell Bojorquez RN [facility] Work Phone: 09-26-2024 Miscellaneous Notes Spoke with [...] TID ETH 250 mg BID Forwarded to [facility] [address] [place] for review/recommendation Sherrell Bojorquez RN Per [facility] of 09/24/2024 w/Dr. Jimenez The doses listed on facility paperwork are different than what was listed on discharge summary at [facility]. Called the facility and [...] to Vimpat, zonisamide. documented in this encounter [facility] 09-26-2024 Telephone encounter Note Levels reviewed, VPA still mildly elevated- would decrease dose to 500 mg TID. Can continue other doses unchanged Artis Hamilton APRN.GROUNDS SUPERVISOR [facility] 09-26-2024 Telephone encounter Note Images from the original note were not included. Per patient's nurse, Katia - recent labs are trough No ETH level completed Current ASMs: PHT 100 mg BID VPA 750 mg TID ETH 250 mg BID Forwarded to [facility] [address] [place] for review/recommendation Sherrell Bojorquez RN Per MALCOLM of 09/24/2024 w/Dr. Jimenez The doses listed on facility paperwork are different than what was listed on discharge summary at [facility]. Called the facility and [...] Future options: Switch Dilantin to Vimpat, zonisamide. [facility] 09-24-2024 Note HNO ID: [id number] Author: JAYANT JIMENEZ MD Service: ? Author Type: Physician Type: Progress Notes Filed: 09/24/2024 11:19 Note Text: [facility] Patient Name: Katheryn GARCIA Date of : 1945 INITIAL EPILEPSY CLINIC NOTE 09/24/2024 8:00 AM CHIEF COMPLAINT: New Patient and Epilepsy HISTORY OF PRESENT ILLNESS Ms. Chino is a 79 year old female seen in [facility] for [...] with AEDs . [place] moved to a [place] and she has more suervison with AEDs [...] it lasted ~ 25 mins). Admitted to [facility] where Dilantin and Depakote levels were low. Doses were adjusted- PHT 100 mg TID and VPA 1000 mg TID. Zarontin was continued at 250 mg BID. Interval Seizure History The doses listed on facility paperwork are different than what was listed on discharge summary at [facility]. Called the facility and [...] - Seizure risk factors: Brain Tumor Unanswered PICK UP Infections Unanswered Developmental Delay Unanswered Family history [...] Hospital 09-24-2024 History of Present illness Narrative [facility] Patient Name: Katheryn GARCIA Date of : 1945 INITIAL EPILEPSY CLINIC NOTE 09/24/2024 8:00 AM CHIEF COMPLAINT: New Patient and Epilepsy HISTORY OF PRESENT ILLNESS Ms. Chino is a 79 year old female seen in [facility] for [...] with AEDs . [place] moved to [place] and she has more suervison with AEDs [...] it lasted ~ 25 mins). Admitted to [facility] where Dilantin and Depakote levels were low. Doses were adjusted- PHT 100 mg TID and VPA 1000 mg TID. Zarontin was continued at 250 mg BID. Interval Seizure History The doses listed on facility paperwork are different than what was listed on discharge summary at [facility]. Called the facility and [...] - Seizure risk factors: Brain Tumor Unanswered PICK UP Infections Unanswered Developmental Delay Unanswered Family history [...] Breast Cancer Mother SOCIAL HISTORY: -Lives in [place], [place] -Patient lives alone? -Vocation: -Education: -Cigarette, [...] impaired coordination greater on the right on cnvemd-by-jayk testing Postural and action tremor in both [...] precautions - No driving in the state [facility] until seizure free for 6 [...] which included: preparing to see the patient vsrc-vq-yryl patient care completing clinical documentation obtaining and/or reviewing separately obtained history performing a medically appropriate examination counseling and educating the patient/family/caregiver ordering medications, tests, or procedures Jayant Jimenez MD cc: Primary Care Physician: Orville Mendoza, DO [address] [address] Referring: Patient: Ms. 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 Reduce the morning [...] precautions - No driving in the state [facility] until seizure free for 6 [...] factor. Jayant Jimenez MD Associate Staff, Epilepsy [facility] September 24, 2024 Office phone: [phone] BONE MINERAL DENSITY PATIENT INSTRUCTIONS ======= Bone [...] usual activities immediately. documented in this encounter [facility] 09-22-2024 Telephone encounter Note See 09/05/24 phone encounter PHT 21.9 Range 10 - 20 Taking PHT 100 mg BID Silvia Rogers RN [facility] 09-22-2024 Miscellaneous Notes See 09/05/24 phone encounter PHT 21.9 Range 10 - 20 Taking PHT 100 mg BID Silvia Rogers RN [facility]FAX: [phone] / [phone] COLLECTION DATE AND TIME: 09/19/2024 - 06:15 Uploaded to [employer] documented in this encounter [facility] 09-19-2024 Telephone encounter Note [facility] PHONE/FAX: [phone] / [phone] COLLECTION DATE AND TIME: 09/19/2024 - 06:15 Uploaded to [employer] [facility] 09-05-2024 Telephone encounter Note Spoke with nurse Renae, [facility] - provided recommendation/she verbalizes understanding. Sherrell Bojorquez RN [facility] Work Phone: 09-05-2024 Miscellaneous Notes Spoke with nurse Renae, [facility] - provided recommendation/she verbalizes understanding. hSerrell Bojorquez RN Pt can continue current doses. Artis Hamilton APRN.GROUNDS SUPERVISOR Images from the original note were not included. Patient update per nurse Renae [facility]: - Last known seizure: 08/17/2024 - labs [...] trough NOV: 09/24/2024 w/Dr. Jimenez Forwarded to [facility] [employer] [place] for review Sherrell Bojorquez RN Per neurology [...] the same. -F/U Epilepsy as outpatient. Called [facility] - left message for nursing staff to contact office Sherrell Bojorquez RN Form received: From (agency / facility / parent): [facility] route driver salesperson (if given): Brea Malloy RN Phone #: [phone] Fax # : [phone] Email: n/a Information requested: Review Labs Collected 09/05/2024 - 05:30 for Valproic Acid and Dilantin and approval for medication dosages Patient of Dr. Jimenez Forwarded to nurse. Also uploaded to [employer]. documented in this encounter [facility] 09-05-2024 Telephone encounter Note Pt can continue current doses. Artis Hamilton APRN.DWAYNE [facility] Work Phone: 09-05-2024 Telephone encounter Note Images from the original note were not included. Patient update per nurse Renae, [facility]: - Last known seizure: [...] trough NOV: 09/24/2024 w/Dr. Jimenez Forwarded to [facility] [employer] [place] for review Sherrell Bojorquez RN Per neurology [...] Continue the same. -F/U Epilepsy as outpatient. [facility] 09-05-2024 Telephone encounter Note Called [facility] - left message for nursing staff to contact office Sherrell Bojorquez RN [facility] 09-05-2024 Telephone encounter Note Form received: From (agency / facility / parent): [facility] route driver salesperson (if given): Brea Malloy RN Phone #: [phone] Fax # : [phone] Email: n/a Information requested: Review Labs Collected 09/05/2024 - 05:30 for Valproic Acid and Dilantin and approval for medication dosages Patient of Dr. Jimenez Forwarded to nurse. Also uploaded to [employer]. [facility] 08-29-2024 Telephone encounter Note Spoke with nurse Mireille at facility. Informed to continue with current asm dose. Silvia Rogers RN [facility] 08-29-2024 Miscellaneous Notes Spoke with nurse Mireille at facility. Informed to continue with current asm dose. Silvia Rogers RN Level reviewed - pt should continue current dose Artis Hamilton APRN.GROUNDS SUPERVISOR Spoke with Mima no further seizures to report and no side effect or medication issues to report. She is doing fine at this time. routed for review Sandra Casey RN Mima of [facility] returning Nurse call. Please call [phone] VPA: 08/27/2024 at 04:55 104: (? to 100) VAP 1000 mg: TID (was increased from 750 mg during recent hospitalization). Previous level ws 94 on 08/06/2024 ======== 08/17/2024 to 08/20/2024 [facility] ======== was patient of Dr. Pereira's last seen 09/01/[address] Jimenez on 09/24/2024: new consult ========= Call placed to [facility] [phone] Jimenez's number given to call back Sandra Casey RN OUTSIDE LAB REPORT FACILITY NAME [facility] PHONE/FAX COLLECTION DATE AND TIME: 08/26/24 0456 Uploaded to [facility] Pt scheduled for N/C w/ Dr. Jimenez documented in this encounter [facility] 08-29-2024 Telephone encounter Note Level reviewed - pt should continue current dose Artis Hamilton APRN.GROUNDS SUPERVISOR [facility] Work Phone: 08-29-2024 Telephone encounter Note Spoke with Mima no further seizures to report and no side effect or medication issues to report. She is doing fine at this time. routed for review Sandra Casey RN [facility] 08-29-2024 Telephone encounter Note Mima of [facility] returning Nurse call. Please call [phone] [facility] 08-28-2024 Telephone encounter Note VPA: 08/27/2024 at 04:55 104: (? to 100) VAP 1000 mg: TID (was increased from 750 mg during recent hospitalization). Previous level ws 94 on 08/06/2024 ======== 08/17/2024 to 08/20/2024 [facility] ======== was patient of Dr. Pereira's last seen 09/01/[address] Jimenez on 09/24/2024: new consult ========= Call placed to [facility] [phone] Jimenez's number given to call back Sandra Casey RN [facility] 08-27-2024 Telephone encounter Note OUTSIDE LAB REPORT FACILITY NAME [facility] PHONE/FAX COLLECTION DATE AND TIME: 08/26/24 0455 Uploaded to [facility] Pt scheduled for N/C w/ Dr. Jimenez [facility] 08-20-2024 Note HNO ID: [id number] Author: NO BENNETT RPh Service: Pharmacy Author [...] list. Pt to be discharged back to [facility], AEDs adjusted as recommended per neurology: -Phenytoin 100 mg TID -Valproic acid 1000 mg TID -Ethosuximide 250 mg BID No additional recommendations. No Bennett RP Pager: [phone] 08/20/2024 11:36 AM Medication List START taking [...] [facility] 08-20-2024 Note HNO ID: [id number] Author: LOLITA SALAZAR RN Service: Care Management Author Type: Registered Nurse Type: Care Mgt Progress Note Filed: 08/20/2024 11:33 Note Text: CARE MANAGEMENT DISCHARGE NOTE SERVICE DATE: August 20, 2024 SERVICE TIME: 11:32 AM Admission Date: 08/17/2024 LOS: 3 days Discharge Arrangement Discharge Arrangement: Extended Care Facility Provider Name: Noel Mosley [phone] Caregiver Assessment Caregiver is ready, willing and able to meet the patient's needs as recommended by the inter-professional team: Yes Name of Caregiver: ECF Transportation Arrangements Transportation Arrangements: Ambulance Transportation Agency and Phone #:: [facility] ( [facility] ) [phone] / [phone] Date of Trip: 08/20/24 Time of Trip: 1200 Type of Service: BLS Non-emergency Is Patient Medicaid Pending?: No Was transportation financial coverage discussed with family?: Family Arranger Assembler Location: [facility] Destination: [facility] Financial Care Management Responsibility: None Handoff Communication: Handoff to: Primary Care Physician Primary Care Physician Name/Phone: Orville Mendoza DO, Additional Information: Discharge Information Row Name Admission (Current) from 08/17/2024 in [place] [address] NEURO/CARD Nursing Home Facility Agency [facility] Pt is being discharged to [facility]. Danny, tenziner, updated and agreeable. Discharge instructions sent via [employer]. Discharge packet is on pt's chart. RN report number is [phone]. [facility] transport scheduled for 08/20 at 12PM. SIGNATURE: Lolita Salazar RN, BSN PATIENT NAME: Katheryn Chino DATE: August 20, 2024 TIME: 11:32 AM CONTACT #: [phone] [facility] 08-19-2024 Note HNO ID: [id number] Author: ROXI MONTILLA RN Service: Nursing Author [...] on above: Performed By: #### 9 [id number] ####[facility] [id number] [address] STATES OF [facility] 08-19-2024 Note HNO ID: [id number] Author: LOLITA SALAZAR RN Service: Care Management Author Type: Registered Nurse Type: Care Mgt Progress Note Filed: 08/19/2024 15:11 Note Text: CARE MANAGEMENT PROGRESS NOTE SERVICE DATE: 08/19/2024 SERVICE TIME: 2:43 PM LOS: 2 days Needs Prior to Discharge: Other: See Comment (Medical stability) IMM Follow Up Copy Given: Yes Copy given to:: Patient Wedding Transportation Driver Wedding Transportation Driver Name/Relationship: brother Delgado Method: By Phone Per MD, pt is medically ready for discharge. CM spoke with Roxi ([phone]) at [facility]. Pt is able to return, but referral that was sent through [employer] was not received. Referral sent again. [facility] [...] Update 1510: [facility] requested pt return skilled and will need PT/OT evals. PT/OT are not ordered, Dr. Dominguez notified of their request. April also requested a COVID test, Dr. Dominguez notified. SIGNATURE: Lolita Salazar RN, BSN PATIENT NAME: Katheryn Chino DATE: August 19, 2024 TIME: 2:43 PM PAGER/CONTACT #: [phone] [facility] 08-19-2024 Note HNO ID: [id number] Author: CARYL DOMINGUEZ DO Service: Hospital Medicine Author Type: Physician Type: Progress Notes Filed: 08/19/2024 14:58 Note Text: DEPARTMENT OF HOSPITAL MEDICINE PROGRESS NOTE SERVICE DATE: 08/19/2024 SERVICE TIME: 2:35 PM Hospital Medicine/Primary Attending: Caryl Dominguez DO NIGHT AND WEEKEND COVERAGE: [place] COVERAGE: After 7pm, please call cross cover pager #[phone] Subjective Patient denies complaints, watching the hallmark channel INTERVAL HPI: 79 y/o female with PMHx of Epilepsy who was transfer to [facility] due to breakthrough seizure. Phenytoin and [...] Drains, and Airways Line Duration Peripheral 08/17/242115 [facility] Short Left Antecubital 20 Gauge 1 [...] VTE Prophylaxis/Anticoagulants 08/17/242229 vte current anticoag therapy (ar,ma) 08/17/242229 activity - mobilize patient ([place], [place]) VTE Prophylaxis: VTE prophylaxis appropriate Disposition: Home Plan of care discussed with: Provider, RN, Patient SIGNATURE: Caryl Dominguez DO PATIENT NAME: Katheryn Chino DATE: August 19, 2024 TIME: 2:35 PM etx [id number] [facility] 08-18-2024 Note HNO ID: [id number] Author: VANESSA LAWSON RN Service: Care Management [...] by: Per Department Practice Potential Transition Plans Nursing Home Facility/Intermediate Care Facility Advance Directives Current Advance Directive: Health Care Power of Duty Manager In Chart: No End Stapler Attempted to Assist with AD Completion: Yes [...] Wheelchair-manual Discharge Planning Patient Goal(s): General wellness [place] of Choice Explained: [place] of Choice Given: Yes Level of Care [...] Arrangements: Ambulance Transportation Agency and Phone #:: [facility] ( [facility] ) [phone] / [phone] Type of Service: BLS Non-emergency Is Patient Medicaid Pending?: No Was transportation financial coverage discussed with family?: Family Arranger Assembler Location: [facility] Destination: [facility] Financial Care Management Responsibility: None Needs Prior to Discharge: Needs Prior to Discharge: To Be Determined Post-Acute Discharge Plan: Spoke with brother Danny via phone. Brother states that he is HCPOA, not on file with [facility]. Patient has been a resident of [facility] for the past 10 years. Return referral sent. +PCP. +Rx. +DME wheelchair bound at baseline. Plan for patient to return to [facility] on discharge. Will need to clarify if patient is bed hold or if precert is needed to return. [facility] transport. CM to follow for transitional care planning. SIGNATURE: Vanessa Lawson RN PATIENT NAME: Katheryn Chino DATE: August 18, 2024 TIME: 2:16 PM CONTACT #: [phone] [facility] 08-18-2024 Note HNO ID: [id number] Author: CARYL DOMINGUEZ DO Service: Hospital Medicine Author Type: Physician Type: Progress Notes Filed: 08/18/2024 16:30 Note Text: DEPARTMENT OF HOSPITAL MEDICINE PROGRESS NOTE SERVICE DATE: 08/18/2024 SERVICE TIME: 2:15 PM Hospital Medicine/Primary Attending: Caryl Dominguez DO NIGHT AND WEEKEND COVERAGE: [place] COVERAGE: After 7pm, please call cross cover pager #[phone] Subjective INTERVAL HPI: 79 y/o female with PMHx of Epilepsy who was transfer to [facility] due to breakthrough seizure. MEDICATIONS: Reviewed [...] Drains, and Airways Line Duration Peripheral 08/17/242115 [facility] Short Left Antecubital 20 Gauge <1 [...] VTE Prophylaxis/Anticoagulants 08/17/242229 vte current anticoag therapy (ar,ma) 08/17/242229 activity - mobilize patient ([place], [place]) VTE Prophylaxis: VTE prophylaxis appropriate Disposition: Home Plan of care discussed with: Provider, RN, Patient SIGNATURE: Caryl Dominguez DO PATIENT NAME: Katheryn Chino DATE: August 18, 2024 TIME: 2:15 PM etx [id number] [facility] 08-17-2024 Telephone encounter Note I received a call from the emergency room at [facility] regarding a patient of Dr. Nava. [...] free 3 years. Visit with epileptologist at [facility] epilepsy clinic and long EEG are indicated at this time due to rare seizures. Events on 08/17/2024 Patient had a 15-minute seizure in the correction. She had not had any seizures recently. [...] Patient has not been seen in the [facility] system since 2019. At the minimum she needs an evaluation to reassess her epilepsy. Francisco Javier Salazar MD Neurology. (Telemedicine neurologist) [facility] Work Phone: 08-17-2024 Miscellaneous Notes I received a call from the emergency room at [facility] regarding a patient of Dr. Nava. [...] with struggles with dysphasia; her brother is POJose. EEG report (08/2018) noted This EEG supports [...] free 3 years. Visit with epileptologist at [facility] epilepsy clinic and long EEG are indicated at this time due to rare seizures. Events on 08/17/2024 Patient had a 15-minute seizure in the correction. She had not had any seizures recently. [...] Patient has not been seen in the [facility] system since 2019. At the minimum she needs an evaluation to reassess her epilepsy. Francisco Javier Salazar MD Neurology. (Telemedicine neurologist) documented in this encounter [facility] 08-10-2023 Miscellaneous Notes Mireille from [facility] called to request medical records for [...] number to call and schedule the appointment. [phone] documented in this encounter [facility] 08-08-2023 Miscellaneous Notes Appears following with Dr. Pereira. Will forward. Duncan Nava MD I did not order labs. Pt needs follow up. Not seen in 3+ years. Duncan Nava MD Fax received from [facility] requesting labs to be reviewed by Dr. Nava and a reply. Pt has not been seen in neurology department since 2019. Please review and advise. Scan on 08/07/2023 11:31 AM by Provider, Carlos, PALeroyC: Outside Labs Roxi Servin LPN documented in this encounter [facility] Evaluation note No assessment inform ation available [facility] Work Phone: Evaluation note Diagnosis Nonintractable generalized idiopathic epilepsy without status epilepticus (HCC)- Primary 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 osteoporosis Special screening for osteoporosis snf (current) use of other agents affecting estrogen receptors and estrogen levels Encounter for screening for osteoporosis Special screening for osteoporosis [facility] Diagnosis Intractable epilepsy without status epilepticus, unspecified epilepsy type (HCC) [facility] Diagnosis Intractable epilepsy without status epilepticus, unspecified epilepsy type (HCC)- Primary documented in this encounter [facility] note* Diagnosis Intractable epilepsy without status epilepticus, unspecified epilepsy type (HCC) documented in this encounter [facility] note* Diagnosis 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 osteoporosis Special 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 for osteoporosis 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 (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) use of other agents affecting estrogen receptors and estrogen levels documented in this encounter [facility] note* Diagnosis Osteoporosis without current pathological fracture, unspecified osteoporosis type- Primary documented in this encounter [facility] note* Diagnosis Intractable epilepsy without status epilepticus, unspecified epilepsy type (HCC) documented in this encounter [facility] note* Diagnosis Sepsis due to urinary tract infection (HCC)- Primary Sepsis due to urinary tract infection (HCC) Breakthrough seizure (CMS/HCC) (HCC) Fever, unspecified fever cause documented in this encounter [facility] note* Diagnosis Intractable epilepsy without status epilepticus, unspecified epilepsy type (HCC)- Primary documented in this encounter [facility] note* Diagnosis Intractable epilepsy without status epilepticus, unspecified epilepsy type (HCC) Osteoporosis without current pathological fracture, unspecified osteoporosis type documented in this encounter [facility] note* Diagnosis Intractable epilepsy without status epilepticus, unspecified epilepsy type (HCC)- Primary documented in this encounter [facility] note* Diagnosis Osteoporosis without current pathological fracture, unspecified osteoporosis type- Primary Wheelchair dependent Wheelchair 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) History of long-term treatment with high-risk medication Encounter for long-term (current) use of other medications documented in this encounter [facility] note* Diagnosis Postmenopausal osteoporosis- Primary Senile osteoporosis documented in this encounter [facility] note* Diagnosis Hyperparathyroid (HCC)- Primary Elevated parathyroid hormone Unspecified endocrine disorder documented in this encounter [facility] for referral (narrative)* Diagnostic Procedure Only (Routine) - Authorized Specialty Diagnoses / Procedures Referred By Contac t Referred To Contact XR IMAGING Diagnoses 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 osteoporosis 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 (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) use of other agents affecting estrogen receptors and estrogen levels Procedures DXA-AXIAL SKELETON DXA BONE DENSITY STUDY 1/> SITES AXIAL Jayant Villeda MD [address] [place] [address] Xr Imaging [facility] Referral ID Status Reason Start Date Expiration Date Visits Requested Visits Authorized [id number] Authorized Auto-Generat ed Referral 10/24/2025 1 1 [facility] (narrative)No reason for referral information availableWTriHealth [facility] Work Phone: Reason for visit Narrative* Diagnostic Procedure Only (Routine) - Closed Specialty Diagnoses / Procedures Referred By Contac t Referred To Contact XR IMAGING Diagnoses 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 osteoporosis snf (current) use of other agents affecting estrogen receptors and estrogen levels Procedures DXA-AXIAL SKELETON DXA BONE DENSITY STUDY 1/> SITES AXIAL Jayant Villeda MD [address] [place] [address] Phone: tel: fax: [place] [address] Referral ID Status Reason Start Date Expiration Date V isits Requested Visits Authorized [id number] Closed Auto-Generate d Referral 09/24/2024 10/24/2025 1 1 [facility] Summary Purpose Family History No Family History Records FoundNo Family History Records FoundNo Family History Records FoundNo Family History Records FoundNo Family History Records FoundNo Family History Records FoundNo Family History Records FoundNo Family History Records Found Advance Directives No Advanced Directives Records Found Advance Directive Response Recorded Date/ Time Name of Medical Power of Duty Manager Danny Ledesma September 18, 2023 10:22am Living Will Yes September 18 10:22am Power of Duty Manager Yes September 18, 2023 10:22am Documents on File Type Date Recorded 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 Advance Directive(s) 08/21/2024 2:00 PM Advance Directive(s) 08/21/2024 1:57 PM Date Activated Date Inactivated Comments 08/18/2024 12:17 PM 08/20/2024 4:37 PM Question Answer Comments DNR Order Discussed With: Surrogate Decision Ryley er Surrogate Decision Maker Relationship: Health Ca re Power of Duty Manager Agent Date Activated Date Inactivated Comments 08/17/2024 10:16 PM 08/18/2024 12:17 PM Question Answer Comments DNR Order Discussed With: State-Approved DNR Mariana ntification Documents on File Type Date Recorded 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 Yes December 03, 2024 10:35am Name of Medical Power of Duty Manager Danny Chino December 03, 2024 10:35am Chief Complaint and Reason for Visit Chief Complaint CORRECTION LAB WOR K CORRECTION BLOOD WORK CORRECTION LAB WORK CORRECTION LABWORK CORRECTION LABWORK Chief Complaint CORRECTION BLOOD W ORK CORRECTION LAB WORK CORRECTION LABWORK CORRECTION LABWORK Chief Complaint CORRECTION LABWORK CORRECTION LABWORK CORRECTION LAB WORK Chief Complaint CORRECTION LAB WOR K LABWORK Chief Complaint LABWORK Chief Complaint LABWORK CORRECTION LABWORK CORRECTION LAB WORK LABWORK Chief Complaint CORRECTION LAB WOR K LABWORK Chief Complaint CORRECTION LAB WOR K LABWORK LABWORK Chief Complaint LABWORK LABWORK SEIZURE Chief Complaint LABWORK LABWORK SEIZURE CORRECTION LABWORK Chief Complaint LABWORK LABWORK SEIZURE CORRECTION LABWORK LABWORK Chief Complaint Admit Date LAB WORK September 17, 2024 5 :30am LAB WORK September 19, 2024 5 :00am LABWORK September 22, 2024 5 :00am LAB WORK September 26, 2024 5:00am LABWORK September 29, 2024 5:00am CORRECTION LAB WORK November 14, 2024 5:00am seizure December 03, 2024 9:32am LABWORK December 10, 2024 5:00am CORRECTION LAB WORK December 15, 2024 5: 00am Chief Complaint Admit Date LAB WORK September 19, 2024 5 :00am LABWORK September 22, 2024 5 :00am LAB WORK September 26, 2024 5:00am LABWORK September 29, 2024 5:00am CORRECTION LAB WORK November 14, 2024 5:00am seizure December 03, 2024 9:32am LABWORK December 10, 2024 5:00am CORRECTION LAB WORK December 15, 2024 5: 00am CORRECTION LAB WORK December 26, 2024 5 :00am Chief Complaint Admit Date CORRECTION LAB WORK November 14, 2024 5:00am seizure December 03, 2024 9:32am LABWORK December 10, 2024 5:00am CORRECTION LAB WORK December 15, 2024 5: 00am CORRECTION LAB WORK December 26, 2024 5 :00am CORRECTION LAB WORK January 19, 2025 5: 00am Chief Complaint Admit Date CORRECTION LAB WORK November 14, 2024 5:00am seizure December 03, 2024 9:32am LABWORK December 10, 2024 5:00am CORRECTION LAB WORK December 15, 2024 5: 00am CORRECTION LAB WORK December 26, 2024 5 :00am CORRECTION LAB WORK January 19, 2025 5: 00am LABWORK January 28, 2025 5:0 0am Chief Complaint Admit Date CORRECTION LAB WORK November 14, 2024 5:00am seizure December 03, 2024 9:32am LABWORK December 10, 2024 5:00am CORRECTION LAB WORK December 15, 2024 5: 00am CORRECTION LAB WORK December 26, 2024 5 :00am CORRECTION LAB WORK January 19, 2025 5: 00am LABWORK January 28, 2025 5:0 0am CORRECTION LAB WORK February 02, 2025 5 :00am Chief Complaint Admit Date CORRECTION LAB WORK December 15, 2024 5: 00am CORRECTION LAB WORK December 26, 2024 5 :00am CORRECTION LAB WORK January 19, 2025 5: 00am LABWORK January 28, 2025 5:0 0am CORRECTION LAB WORK February 02, 2025 5 :00am CORRECTION LAB WORK February 27, 2025 5:0 0am LABWORK March 04, 2025 5:00a m CORRECTION LAB WORK March 10, 2025 5:0 0am Additional Source Comments INFORMATION SOURCE (unrecogn ized section and content) DATE CREATED AUTHOR [facility] DATE CREATED AUTHOR AUTHOR'S ORGANIZ ATION 07/30/2019 [facility] DATE CREATED AUTHOR AUTHOR'S ORGANIZ ATION 12/05/2024 [facility] DATE CREATED AUTHOR AUTHOR'S ORGANIZ ATION 12/17/2024 [facility] DATE CREATED AUTHOR AUTHOR'S ORGANIZ ATION 01/18/2025 [facility] DATE CREATED AUTHOR AUTHOR'S ORGANIZ ATION 04/22/2025 [facility] DATE CREATED AUTHOR AUTHOR'S ORGANIZ ATION 08/20/2025 [facility] Goals (unrecognized section and content) Goals may [...] Status: Inactive Member Role Status Dates Todd Vleasquez MD Primary Care Provider, Attending Pro vider Active Homeland Security Program Specialist Relationship Specialty Start Date End Date Orville Mendoza [address] [place] [address] PCP - General Family Medicine 08/07/18 Claudia Gaston APRN.GROUNDS SUPERVISOR [address] [place] [address] Referring Neurosurgery 07/29/19 Homeland Security Program Specialist Relationship Specialty Start Date End Date Orville Mendoza [address] [place] [address] PCP - General Family Medicine 08/07/18 Claudia Gaston, ANYI.GROUNDS SUPERVISOR [address] [place], [place] [id number] Referring Neurosurgery 07/29/19 Team Status: Active Member [...] MD Primary Care Provider, Attending Provider Active Homeland Security Program Specialist Relationship Specialty Start Date End Date Orville Mendoza DO [address] [place] [address] PCP - General Family Medicine 08/07/18 Claudia Gaston, ANYI.GROUNDS SUPERVISOR [address] [place] [address] Referring Neurosurgery 07/29/19 Homeland Security Program Specialist Relationship Specialty Start Date End Date Orville Mendoza DO [address] [place] [address] PCP - General Family Medicine 08/07/18 Claudia Gaston APRN.GROUNDS SUPERVISOR [address] [place] [address] Referring Neurosurgery 07/29/19 Homeland Security Program Specialist Relationship Specialty Start Date End Date Orville Mendoza DO [address] [place] [id number] PCP - General Family Medicine 08/07/18 Claudia Gaston APRN.GROUNDS SUPERVISOR [address] [place] [address] Referring Neurosurgery 07/29/19 Homeland Security Program Specialist Relationship Specialty Start Date End Date Orville Mendoza [address] [place] [address] PCP - General Family Medicine 08/07/18 Claudia Gsaton APRN.GROUNDS SUPERVISOR [address] [place] [address] Referring Neurosurgery 07/29/19 Homeland Security Program Specialist Relationship Specialty Start Date End Date Orville Mendoza DO [address] [place] [address] PCP - General Family Medicine 08/07/18 Claudia Gaston APRN.GROUNDS SUPERVISOR [address] [place] [address] Referring Neurosurgery 07/29/19 Homeland Security Program Specialist Relationship Specialty Start Date End Date Orville Mendoza DO [address] [place] [address] PCP - General Family Medicine 08/07/18 Claudia Gaston APRN.GROUNDS SUPERVISOR [address] [place] [address] Referring Neurosurgery 07/29/19 Homeland Security Program Specialist Relationship Specialty Start Date End Date Orville Mendoza DO [address] [place] [address] PCP - General Family Medicine 08/07/18 Claudia Gaston APRN.GROUNDS SUPERVISOR [address] [place] [address] Referring Neurosurgery 07/29/19 Homeland Security Program Specialist Relationship Specialty Start Date End Date Orville Mendoza DO [address] [place] [address] PCP - General Family Medicine 08/07/18 Claudia Gaston APRN.GROUNDS SUPERVISOR [address] [place] [address] Referring Neurosurgery 07/29/19 Homeland Security Program Specialist Relationship Specialty Start Date End Date Orville Mendoza DO [address] [place] [address] PCP - General Family Medicine 08/07/18 Claudia Gaston APRN.GROUNDS SUPERVISOR [address] [place] [address] Referring Neurosurgery 07/29/19 Homeland Security Program Specialist Relationship Specialty Start Date End Date Orville Mendoza DO [address] [place] [address] PCP - General Family Medicine 08/07/18 Claudia Gaston APRN.GROUNDS SUPERVISOR [address] [place] [address] Referring Neurosurgery 07/29/19 Homeland Security Program Specialist Relationship Specialty Start Date End Date Orville Mendoza DO [address] [place] [address] PCP - General Family Medicine 08/07/18 Claudia Gaston, ANYI.GROUNDS SUPERVISOR [address] [place] [address] Referring Neurosurgery 07/29/19 Homeland Security Program Specialist Relationship Specialty Start Date End Date Orville Mendoza, DO [address] [place] [address] PCP - General Family Medicine 08/07/18 Claudia Gaston, ANYI.GROUNDS SUPERVISOR [address] [place] [address] Referring Neurosurgery 07/29/19 Homeland Security Program Specialist Relationship Specialty Start Date End Date Orville Mendoza, DO [address] [place] [address] PCP - General Family Medicine 08/07/18 Claudia Gaston APRN.GROUNDS SUPERVISOR [address] [place] [address] Referring Neurosurgery 07/29/19 Homeland Security Program Specialist Relationship Specialty Start Date End Date Orville Mendoza DO [address] [place], [place] [id number] PCP - General Family Medicine 08/07/18 Claudia Gaston, ANYI.GROUNDS SUPERVISOR [address] [place] [address] Referring Neurosurgery 07/29/19 Homeland Security Program Specialist Relationship Specialty Start Date End Date Orville Mendoza DO [address] [place] [address] [address] [place] [id number] PCP - General 03/15/19 Homeland Security Program Specialist Relationship Specialty Start Date End Date Orville Mendoza DO [address] [place], [place] [id number] PCP - General Family Medicine 08/07/18 Claudia Gaston, ANYI.GROUNDS SUPERVISOR [address] [place] [address] Referring Neurosurgery 07/29/19 Team Status: Active Member [...] Care Provider Active Start: November 08, 2024 [facility] Attending Provider Active Start: November 08, [...] Provider Active S tart: December 26, 2024 Homeland Security Program Specialist Relationship Specialty Start Date End Date Orville Mendoza DO [address] [place] [address] PCP - General Family Medicine 08/07/18 Claudia Gaston APRN.GROUNDS SUPERVISOR [address] [place] [address] Referring Neurosurgery 07/29/19 Team Status: Inactive Member [...] Provider Active S tart: February 02, 2025 Homeland Security Program Specialist Relationship Specialty Start Date End Date Orville Mendoza DO [address] [place] [address] PCP - General Family Medicine 08/07/18 Claudia Gaston APRN.GROUNDS SUPERVISOR [place] [address] Referring Neurosurgery 07/29/19 Team Status: Inactive Member [...] Provider Active S tart: April 06, 2025 Homeland Security Program Specialist Relationship Specialty Start Date End Date Orville Mendoza DO [address] [place] [address] PCP - General Family Medicine 08/07/18 Claudia Gaston APRN.[facility] [address] [place] [address] Referring Neurosurgery 07/29/19 Source Comments (unrecognize d section and content) In the event this informatio n is protected by the Federal Confidentiality of Alcohol and Drug Abuse Patient Records regulations: The Federal rules restrict any use of the information to criminally investigate or prosecute any alcohol or drug abuse patient.[facility] the event this information is protected by the Federal Confidentiality of Alcohol and Drug Abuse Patient Records regulations: The Federal rules restrict any use of the information to criminally investigate or prosecute any alcohol or drug abuse patient.[facility] the event this information is protected by the Federal Confidentiality of Alcohol and Drug Abuse Patient Records regulations: The Federal rules restrict any use of the information to criminally investigate or prosecute any alcohol or drug abuse patient.[facility] the event this information is protected by the Federal Confidentiality of Alcohol and Drug Abuse Patient Records regulations: The Federal rules restrict any use of the information to criminally investigate or prosecute any alcohol or drug abuse patient.[facility] the event this information is protected by the Federal Confidentiality of Alcohol and Drug Abuse Patient Records regulations: The Federal rules restrict any use of the information to criminally investigate or prosecute any alcohol or drug abuse patient.[facility] the event this information is protected by the Federal Confidentiality of Alcohol and Drug Abuse Patient Records regulations: The Federal rules restrict any use of the information to criminally investigate or prosecute any alcohol or drug abuse patient.[facility] the event this information is protected by the Federal Confidentiality of Alcohol and Drug Abuse Patient Records regulations: The Federal rules restrict any use of the information to criminally investigate or prosecute any alcohol or drug abuse patient.[facility] the event this information is protected by the Federal Confidentiality of Alcohol and Drug Abuse Patient Records regulations: The Federal rules restrict any use of the information to criminally investigate or prosecute any alcohol or drug abuse patient.[facility] the event this information is protected by the Federal Confidentiality of Alcohol and Drug Abuse Patient Records regulations: The Federal rules restrict any use of the information to criminally investigate or prosecute any alcohol or drug abuse patient.[facility] Hospital[facility] the event this information is protected by the Federal Confidentiality of Alcohol and Drug Abuse Patient Records regulations: The Federal rules restrict any use of the information to criminally investigate or prosecute any alcohol or drug abuse patient.[facility] Hospital[facility] the event this information is protected by the Federal Confidentiality of Alcohol and Drug Abuse Patient Records regulations: The Federal rules restrict any use of the information to criminally investigate or prosecute any alcohol or drug abuse patient.[facility] Hospital[facility] the event this information is protected by the Federal Confidentiality of Alcohol and Drug Abuse Patient Records regulations: The Federal rules restrict any use of the information to criminally investigate or prosecute any alcohol or drug abuse patient.[facility] Hospital[facility] the event this information is protected by the Federal Confidentiality of Alcohol and Drug Abuse Patient Records regulations: The Federal rules restrict any use of the information to criminally investigate or prosecute any alcohol or drug abuse patient.[facility] Hospital[facility] the event this information is protected by the Federal Confidentiality of Alcohol and Drug Abuse Patient Records regulations: The Federal rules restrict any use of the information to criminally investigate or prosecute any alcohol or drug abuse patient.[facility] HospitalIn the event this information is protected by the Federal Confidentiality of Alcohol and Drug Abuse Patient Records regulations: The Federal rules restrict any use of the information to criminally investigate or prosecute any alcohol or drug abuse patient.[facility] Hospital[facility] the event this information is protected by the Federal Confidentiality of Alcohol and Drug Abuse Patient Records regulations: The Federal rules restrict any use of the information to criminally investigate or prosecute any alcohol or drug abuse patient.[facility] HospitalIn the event this information is protected by the Federal Confidentiality of Alcohol and Drug Abuse Patient Records regulations: The Federal rules restrict any use of the information to criminally investigate or prosecute any alcohol or drug abuse patient.[facility] Hospital[facility] the event this information is protected by the Federal Confidentiality of Alcohol and Drug Abuse Patient Records regulations: The Federal rules restrict any use of the information to criminally investigate or prosecute any alcohol or drug abuse patient.[facility] HospitalIn the event this information is protected by the Federal Confidentiality of Alcohol and Drug Abuse Patient Records regulations: The Federal rules restrict any use of the information to criminally investigate or prosecute any alcohol or drug abuse patient.[facility] Hospital[facility] the event this information is protected by the Federal Confidentiality of Alcohol and Drug Abuse Patient Records regulations: The Federal rules restrict any use of the information to criminally investigate or prosecute any alcohol or drug abuse patient.[facility] HospitalIn the event this information is protected by the Federal Confidentiality of Alcohol and Drug Abuse Patient Records regulations: The Federal rules restrict any use of the information to criminally investigate or prosecute any alcohol or drug abuse patient.[facility] HospitalIn the event this information is protected by the Federal Confidentiality of Alcohol and Drug Abuse Patient Records regulations: The Federal rules restrict any use of the information to criminally investigate or prosecute any alcohol or drug abuse patient.[facility] HospitalIn the event this information is protected by the Federal Confidentiality of Alcohol and Drug Abuse Patient Records regulations: The Federal rules restrict any use of the information to criminally investigate or prosecute any alcohol or drug abuse patient.[facility] HospitalIn the event this information is protected by the Federal Confidentiality of Alcohol and Drug Abuse Patient Records regulations: The Federal rules restrict any use of the information to criminally investigate or prosecute any alcohol or drug abuse patient.[facility] HospitalIn the event this information is protected by the Federal Confidentiality of Alcohol and Drug Abuse Patient Records regulations: The Federal rules restrict any use of the information to criminally investigate or prosecute any alcohol or drug abuse patient.[facility] HospitalIn the event this information is protected by the Federal Confidentiality of Alcohol and Drug Abuse Patient Records regulations: The Federal rules restrict any use of the information to criminally investigate or prosecute any alcohol or drug abuse patient.[facility] HospitalIn the event this information is protected by the Federal Confidentiality of Alcohol and Drug Abuse Patient Records regulations: The Federal rules restrict any use of the information to criminally investigate or prosecute any alcohol or drug abuse patient.[facility] Reason for Visit (unrecogniz ed section and content) Reason Comments Results Reason Comments Release Of Medical Records Reason Comments Outside Labs Results VPA Reason Comments Forms Review results and o rders Reason Comments Outside Lab Results PHENYTOIN Reason Comments New Patient Epilepsy Reason Comments Outside Lab Results [facility] Reason Comments general seizure monitoring r eport Reason Comments Seizures Reason Comments Received Outside Medical Records Seizure monitoring report Reason Onset Date Comments Refill Request 11/11/2024 Reason Comments Therapist Physical - Other Reason Comments Other Seizure monitoring Reason Comments Seizures [place] transfer[facility] witnessed seizure this morning. Vomiting during seizure, pt on 4L NC, room air @ baseline. Hx SZ, pt states her last one was 5 months ago. Given depakote 500 mg @ 1228, 4 mg zofran @ 1228, and dilantin 1500 mg @ 1350. A&O x 2 with garbled speech at baseline. Specialty Diagnoses / Procedures Referred By Melanie reina Referred To Contact Diagnoses Breakthrough seizure (CMS/HCC) (HCC) Sepsis due to urinary tract infection (HCC) Fever, unspecified fever cause Procedures . Fazal Garza MD [address] [place] [address] Phone: tel: fax: [facility] Epilepsy Monitoring Unit [address] [place] [id number] Phone: tel: fax: Referral ID Status Reason Start Date Expiration Date Visits Re quested Visits Authorized [id number] 1 Reason Comments Outside Lab Results lacosamide Reason Comments Orders [facility] Reason Comments Medication Problem Nayzilam - Medicatio n Not Working Reason Comments Follow Up Epilepsy Reason Comments Medication Problem Lacosamide Reason Comments New Patient Specialty Diagnoses / Procedures Referred By Melanie reina Referred To Contact Rheumatology Diagnoses Osteoporosis without current pathological fracture, unspecified osteoporosis type Procedures CONSULT TO RHEUM/IMMUN DISEASE OFFICE/OUTPATIENT NEW HIGH [facility] 60 MINUTES Jayant Jimenez MD [address] [place] [address] Phone: tel: fax: Referral ID Status Reason Start Date Expiration Date V isits Requested Visits Authorized [id number] Closed PCP Requested Referral 12/01/2024 12/01/2025 1 [...] LPN)2049 (Given - Provider: Jeanne Avina RN) 0929 (Given - Provider: Kaylee Carrasco RN)2311 (Given - Provider: Jeanne Avina RN - Comment: med pas) 0944 (Given - Provider: Adam Pimentel RN) furosemide (Lasix) tablet 20 mg 20 mg, Oral, 3 times weekly (Once per day on Sunday), First dose (after last modification) on Sun12/05/24 at 0900 0943 (Given - Provider: Adam Pimentel, RN) lacosamide (Vimpat) tablet 100 mg 100 mg, Oral, Every morning, First dose on Sun12/05/24 at 0900, Swallow tablets whole; do not divide. 0848 (Given - Provider: Fausto Linn LPN) 927 (Given - Provider: Kaylee Carrasco, RN) 941 (Given - Provider: Adam Pimentel, RN) lacosamide [...] Linn LPN) 927 (Given - Provider: Kaylee Carrasco, RN) 941 (Given - Provider: Adam Pimentel, RN) potassium [...] RN)2101 (Given - Provider: Jeanne Avina, RN) 09 (Given - Provider: Adam Pimentel, RN) PRN [...] BE BASED ON THE PRIMARY CLINICAL RECORDS. [facility] [employer] [facility]. provides no warranty or guarantee of the accuracy or completeness of information in this document.
[2025-08-24 08:32] LABS: Valproic Acid (Depakene) Level 71 ug/mL (50-100)
== END ==
LOC: OLS.ACH 05:00
PROVIDERS: PCP Internal Medicine; Visit Provider Internal Medicine
DX: G40.909 Epilepsy, unspecified, not intractable, without status epilepticus (principal)
CPT/HCPCS: 36415; 80164

== ENCOUNTER → 2025-08-28 | Outpatient (CLI) | payer MEDICARE, OTHER, SELFPAY ==
--- NOTE | 2025-08-28 15:01 | RAD_ITS ---
PROCEDURE: SHOULDER MIN 2 VIEWS 08/28/2025 REASON FOR EXAM: SHOULDER FRACTURE TECHNIQUE: Procedure Code: RADSH Modality: DX Procedure: SHOULDER MIN 2 VIEWS Laterality: Left COMPARISON: Left shoulder study dated 08/09/2025 FINDINGS: Bones: Diffuse osteopenia of the osseous structures of the left shoulder are noted. Again noted is a comminuted, impacted fracture of the left humeral neck and greater tuberosity. There is displacement of the distal fragment medially by approximately 1 cm Joints: There appears to be hemarthrosis. Soft tissues: Soft tissue swelling is noted. Other: The visualized left ribs appear to be intact. There is no left lung contusion, pneumothorax or pleural effusion. RAD/Shoulder min 2 Views IMPRESSION: Diffuse osteopenia of the osseous structures of the left shoulder are noted. Again noted is a comminuted, impacted fracture of the left humeral neck and gre ater tuberosity. There is displacement of the distal fragment medially by approximately 1 cm There appears to be hemarthrosis. Reading Location: [id number]
== END | disposition home or self-care (01) ==
LOC: MTRAD 15:01
PROVIDERS: PCP Internal Medicine; Referring Provider Nurse Practitioner Family; Visit Provider Nurse Practitioner Family
DX: S42.202A Unspecified fracture of upper end of left humerus, initial encounter for closed fracture (principal)
CPT/HCPCS: 73030